=== PATIENT | female | born 1960 | race Caucasian/White ===

== ENCOUNTER 2018-05-01 19:07 | Outpatient (REF) | payer MEDICARE, SELFPAY ==
[2018-05-01 20:10] LABS: Bilirubin Negative (Negative); Blood Moderate (Negative); Clarity Sl Cloudy; Glucose Negative (Negative); Ketones Negative (Negative); Leukocyte Esterase Moderate (Negative); Nitrite Negative (Negative); Specific Gravity 1.015 (1.005-1.025); Urobilinogen 0.2 EU/dL (Up TO 0.2)
[2018-05-01 20:21] LABS: WBC 20-50 HPF (0-5)
[2018-05-01 20:22] LABS: Bacteria Moderate HPF (Negative); C & S Indicated? No/Sq. Contamination; Casts Negative LPF (Negative); Crystals Negative HPF (Negative); Epithelial Cells Many HPF (Negative); Mucus Negative (Negative); Other Cells Negative (Negative)
== END 2018-05-01 19:27 ==
LOC: NCHCN 19:07
PROVIDERS: PCP Family Medicine; Visit Provider Nurse Practitioner Family
DX: R35.8 Other polyuria (principal)
CPT/HCPCS: 87077; 81003; 81015; 87086; 87186

== ENCOUNTER → 2018-05-28 12:49 | Outpatient (BNVA) | payer MEDICARE, SELFPAY | PROVIDERS: PCP Family Medicine; Referring Provider Family Medicine; Visit Provider Nurse Practitioner Gerontology | DX: R31.9 Hematuria, unspecified (principal); R10.9 Unspecified abdominal pain; N39.0 Urinary tract infection, site not specified; E11.9 Type 2 diabetes mellitus without complications; Z79.84 Long term (current) use of oral hypoglycemic drugs; I11.0 Hypertensive heart disease with heart failure; I50.9 Heart failure, unspecified | CPT/HCPCS: 81003; 99204; 99215 ==

== ENCOUNTER 2018-05-28 14:57 | Outpatient (REF) | payer MEDICARE, SELFPAY ==
[2018-05-28 16:43] LABS: Bacteria Few HPF (Negative); C & S Indicated? C&S Done As Ordered; Casts Negative LPF (Negative); Crystals Negative HPF (Negative); Epithelial Cells Few HPF (Negative); Mucus Negative (Negative); Other Cells Negative (Negative); WBC >50 HPF (0-5)
== END 2018-05-28 15:17 ==
LOC: LBN 14:57
PROVIDERS: PCP Family Medicine; Visit Provider Nurse Practitioner Gerontology
DX: R31.9 Hematuria, unspecified (principal)
CPT/HCPCS: 87077; 81015; 87086; 87186

== ENCOUNTER 2018-06-07 00:37 | Outpatient (CLI) | payer MEDICARE, SELFPAY ==
[2018-06-07 11:28] LABS: CREATININE 0.72 mg/dL (0.55-1.02)
[2018-06-07] MEDS: Omnipaque 350 MG/ML 100 ML BTL IJ (12:23)
--- NOTE | 2018-06-07 12:30 | DI.CT_ITS ---
SYMPTOMS/DIAGNOSIS: RIGHT FLANK PAIN, HEMATURIA, R10.9, R31.9 CT UROGRAM: Noncontrast CT scan of the abdomen and pelvis was performed according to the renal colic protocol. In the right kidney, there is a 1.5 cm stone within the renal pelvis. There is a 0.5 cm stone in the region of the right ureteropelvic junction. There is a 4 mm stone at the right ureterovesical junction. Moderate hydronephrosis is seen. There is a 0.2 cm nonobstructing stone in the lower pole of the right kidney. In the left kidney, there is a large stone seen in the inferior pole measuring 2.6 cm in diameter. It is nonobstructing. No ureteral stones are seen on the left. No hydronephrosis is present. The urinary bladder is intact. The patient is status post cholecystectomy. No biliary ductal dilatation is present. The patient has a moderate-sized midline anterior abdominal wall hernia containing a nonobstructed loop of small bowel. Postcontrast images of the abdomen and pelvis were performed. There does appear to be diffuse decreased attenuation of the liver suggesting hepatic steatosis. There is patient motion artifact, which does limit evaluation. The portal and superior mesenteric veins are patent. No biliary ductal dilatation is seen. The pancreas, spleen and adrenal glands are unremarkable. The kidneys show normal and symmetric enhancement. No solid renal mass is present. The abdominal aorta shows atherosclerosis but no aneurysmal dilatation is seen. There is diverticulosis of the colon, but no acute diverticulitis is present. No evidence of bowel obstruction or inflammation is seen. No significant abdominal or pelvic adenopathy, ascites or pneumoperitoneum is present. Degenerative changes are seen in the spine. Seven-minute delayed images were obtained. The left ureter is opacified. No filling defects are seen. There is delayed excretion within the right renal collecting system. Contrast is only seen in the renal pelvis. No ureteral contrast is present. The urinary bladder appears grossly unremarkable. IMPRESSION: 1. Multiple right ureteral calculi. The largest is seen proximally, but stones are present at the right ureteropelvic junction and right ureterovesical junction. 2. Bilateral nephrolithiasis. 3. Nonacute findings seen in the abdomen and pelvis as described above.
== END 2018-06-07 00:57 ==
PROVIDERS: PCP Family Medicine; Visit Provider Nurse Practitioner Gerontology
DX: R10.31 Right lower quadrant pain (principal); R31.9 Hematuria, unspecified; N20.0 Calculus of kidney; N20.2 Calculus of kidney with calculus of ureter
CPT/HCPCS: 74178; 82565; J3490

== ENCOUNTER → 2018-06-17 14:20 | Outpatient (BNVA) | payer MEDICARE, SELFPAY | PROVIDERS: PCP Family Medicine; Visit Provider Nurse Practitioner Gerontology | DX: N20.0 Calculus of kidney (principal); E11.9 Type 2 diabetes mellitus without complications; Z79.84 Long term (current) use of oral hypoglycemic drugs; I10 Essential (primary) hypertension | CPT/HCPCS: 99213 ==

== ENCOUNTER 2018-07-09 09:02 | Emergency (ER) | payer MEDICARE, SELFPAY ==
[2018-07-09] VITALS (7 sets, daily range): BP systolic 114–149; BP diastolic 55–83; PULSE 87–99; RESP 18–20; TEMP 35.4–36.6; O2SAT 95–96
--- NOTE | 2018-07-09 09:15 | W.ED.GENAD ---
Discharge Plan Disposition Patient Disposition: [facility] Condition: Serious Discharge Details Chief Complaint: Abd Prob Clinical Impression: Hydronephrosis, Leukocytosis (leucocytosis), Incarcerated incisional hernia, Recurrent UTI, Nephrolithiasis Primary Care Provider: Albert Zuleta ED Provider: Liv Piper Home Meds and New Rx's Prescriptions: No Action spironolactone 25 mg tablet 25 mg PO DAILY RF: 0 furosemide 20 mg tablet 20 mg PO DAILY RF: 0 nitroglycerin 0.4 MG tablet, sublingual 0.4 mg Sublingual PRN RF: 0 multivitamin 1 EACH capsule 1 ea PO DAILY RF: 0 Trulicity 1.5 MG/0.5 ML pen injector 1.5 mg SQ weekly RF: 0 estradiol [Estrace] 42.5 GM cream 1 gm VG 3 times a week. Qty: 1 RF: 6 cephalexin [Keflex] 500 mg capsule 500 mg PO TID Qty: 21 RF: 0 ProAir HFA 8.5 GM HFA aerosol inhaler 2 puff Inhalation QID PRN (Reason: Shortness Of Breath) RF: 0 glipizide-metformin 1 EACH tablet 2 ea PO BID RF: 0 Spiriva with HandiHaler 30 CAP capsule, w/inhalation device 1 cap Inhalation DAILY RF: 0 Januvia 25 MG tablet 100 mg PO QAM RF: 0 hydrocodone-acetaminophen 1 TAB tablet 2 tab PO PRN PRN (Reason: Pain) RF: 0 aspirin, buffered 325 MG tablet 1 tab PO DAILY RF: 0 magnesium 30 mg Tablet 30 mg PO DAILY RF: 0 loratadine 10 mg Tablet 10 mg PO DAILY RF: 0 Discharge Data Discharge Date/Time-TO BE ENTERED AT DEPARTURE: 07/09/18 15:45 Medical Decision Making <Leon Schafer MD - Last Filed: 07/09/18 09:24> ECG Data Attestation: I personally reviewed and interpreted this ECG (s) as follows: Prior ECG tracings: available for review Interpretation: sinus rhythm, ate of 100, left bundle branch block, pr 168, no acute ischemic st t wave changes <JETT De La Cruz - Last Filed: 07/10/18 08:04> Patient is a 57-year-old female presenting today with chief complaint of nausea and vomiting times 3 hours. Reports I cannot keep anything down and is very thirsty. Patient has history of osteoarthritis, morbid obesity, recurrent urinary tract infections, diabetes, hypertension, kidney stones, sarcoidosis. Patient is status post cholecystectomy, complete hysterectomy, hernia repair. She reports she has waxing and waning abdominal pain and points to the inferior most aspect of her pannus this area of maximal discomfort. Is not currently endorsing any discomfort. States that she has not been able to pass flatus or have a bowel movement since the onset of her nausea and vomiting. Patient denies any bloating. Denies hematemesis. Is currently endorsing nausea. Patient denies any chest pain. She does endorse chronic exertional dyspnea which she reports is unchanged associates with history of CHF. Denies any On exam, patient is noted to be morbidly obese. Secondary to this, abdominal exam is slightly limited. No discomfort was elicited with palpation. Hypoactive bowel sounds. Lungs are clear. Patient is known to be slightly tachycardic at a rate of 98. She is afebrile. EKG reviewed by Dr. Schafer, LBBB unchanged from previous. He does not note any acute ischemic changes. Please see his note. Given the patient's surgical history and report of progression of symptoms, I am most concerned for possible obstruction. She has history of nephrolithiasis, no CVA tenderness, no urinary symptoms per patient report. We will treat the patient's nausea, obtain laboratory evaluation as well as CT scan. Discussed plan with the patient who is in agreement. Patient is not currently endorsing any pain. Laboratory evaluation significant for leukocytosis 16.71 with left shift. Contact by lab, patients troponin is elevated at 0.81. Discussed these findings with the patient. She state she may have had some twinges in her chest over the past few days but that htis is very mild and is not currently active. Will add chest to imaging. Glucose elevated 348, she states she is noncompliant and has not had her medications in the past 2 days. Magnesium slightly low at 1.7. AST elevated at 48, this appears typical for the patient. UA concerning for UTI, nitrite positive, moderate blood, large amount of leukocyte esterase. She has had multiple UTI but feels asymptomatic at this point. Will give 1g Rocephin. Has history of Amoxicillin allergy but has tolerated cephalosporins well historically. Holding ASA until read back from CT. Spoke with radiologist who reviewed the CT of the chest, abdomen and pelvis. Significant for a large incarcerated small bowel hernia. No significant for a large stone that is impacted in the right ureteropelvic junction with severe hydronephrosis. Given the patients comorbidities, BMI, elevated troponin and findings on the CT, I am concerned that this patient will require transfer to higher level of care. Discussed case with Dr. Schafer who agrees that patient is most appropriate for transfer to another facility. Official CT read: The aorta is normal. The cephalic vessels are intact. There is no evidence of pulmonary embolic disease. There is no pulmonary infiltrate or mass, or pleural effusion. The heart is not enlarged. There is no pericardial effusion. Below the diaphragm the aorta is intact. There are atherosclerotic changes and there are small calcifications that take off of the celiac and superior mesenteric arteries without evidence of significant stenosis. There is no demonstrated aortic or other aneurysm. The iliac vessels appear intact. The renal arteries are intact. The liver is intact. The patient is status post cholecystectomy. There is no focal hepatic abnormality. There is no evidence of biliary dilatation or cholelithiasis. The pancreas is unremarkable. The spleen is unremarkable. There are severe hydronephrotic changes involving the right kidney and there is a large proximal right ureteral stone measuring up to 16.4 mm in maximal diameter. The ureter distal to this calculus which is impacted at the ureteropelvic junction is unremarkable. There is nonobstructing left nephrolithiasis. Also there is a large lower pole renal calculus measuring up to 3 x 1.3 cm. There is no evidence of left hydronephrosis. The left ureter is unremarkable. As noted above the iliac arteries exhibit atherosclerotic change. There is no aneurysm with both the external and internal iliacs intact. There are multiple small calcified pelvic phleboliths. The bladder is decompressed. A large periumbilical hernia contains small bowel loops and fat and there is at least partial incarceration of the herniated small bowel segment. The distal small bowel is mildly dilated when compared with the small bowel loops proximal to the hernia. There is no evidence of an acute appendix. No gross abnormality involving the colon is apparent and there is no evidence of a localized colonic mass. There is no evidence of significant diverticulitis. There is no evidence of free air or free fluid in the abdomen or pelvis. In the pelvis and upper thighs the femoral arteries are unremarkable. No significant bony abnormality is seen save for severe DJD involving both hips. Findings consistent with an incarcerated umbilical hernia and bilateral nephrolithiasis, and severe right hydronephrosis secondary to a sizable stone impacted at the ureteropelvic junction as described above. The stone measures to as much as 1.6 , and no obstruction. No significant vascular abnormality involving the chest, abdomen or pelvis. Note is made of severe bilateral hip DJD SUMMARY: Bilateral nephrolithiasis. Severe right hydronephrosis secondary to an impacted stone at the ureteropelvic junction as described above. There is a large incarcerated mid to distal small bowel hernia Atherosclerotic changes in the vasculature in the thorax and abdomen and pelvis. No vascular acute abnormality is suggested. Consulted with [facility] regarding transfer for incarcerated hernia, infected ureteral stone with severe hydronephrosis and elevated troponin. They do not have any beds at this time Consulted with [facility] who advised that they will contact me regarding bed placement possibilities Images pushed to [facility] Spoke with Dr. Gilliam at [facility] who will review images and discuss with the required consults on this patient. Lactate 2.5. Patient continues to receive IV hydration. On second liter of fluid. Consulted with Dr. Rosas with general surgery to discuss hernia. As the patient was endorsning discomfort, and there is confusion as to what service the patient should go to at [facility], I requested the he evaluate the patient. Patient is concerned that her primary source of discmfort is linked to the hernia. He was able to reduce the hernia, his primary concern at this time is urosepsis secondary to the stone and infection noted. Does not feel that surgery for hernia is required at this time, he does not feel that the patient is having discomfort associated with the hernia nor is this the source of her N/V. Was called back by [facility] who advises that there is now a step down bed available. Consulted with Dr. Argueta, hospitalist, reviewed history, labs and CT findings. CT images and EKGs were pushed to [facility]. We are going to consult with urology. Dr. Sears, with urology, was also added to the line. She reviewed images and she advised that patient will need nephrostomy tube vs. stent placement as soon as possible. Dr. Argueta has accepted patient in transfer. Troponin remains 0.8. Discussed this plan with the patient. Discussed her labs, CT findings and recommendations of urology. Patient has received 3L of fluid and 1G of Rocephin. She is in agreement with this plan of transfer for urology intervention. She will be transferred via EMS for continued cardiac monitoring, hydration. I am concerned, given her laboraotry and imaging findings, that while she is well compensated at this time, she may become unstable secondary to her infection. HPI <Leon Schafer MD - Last Filed: 07/09/18 09:24> General Date/Time Provider Initiated Documentation: 07/09/18 09:06. Related Data Home Medications Medication Instructions Recorded Confirmed multivitamin 1 ea PO DAILY 11/07/12 07/09/18 nitroglycerin 0.4 mg SUBLINGUAL PRN 11/07/12 07/09/18 Januvia 100 mg PO QAM 02/03/13 07/09/18 ProAir HFA 2 puff INHALATION QID PRN 02/03/13 07/09/18 Spiriva with HandiHaler 1 cap INHALATION DAILY 02/03/13 07/09/18 glipizide-metformin 2 ea PO BID 02/03/13 07/09/18 hydrocodone-acetaminophen 2 tab PO PRN PRN 02/13/13 07/09/18 aspirin, buffered 1 tab PO DAILY 10/02/16 07/09/18 dulaglutide [Trulicity] 1.5 mg SQ weekly 12/10/17 07/09/18 estradiol [Estrace] 1 gm VG 3 times a week. #1 tube 12/25/17 07/09/18 furosemide 20 mg tablet 20 mg PO DAILY 05/28/18 07/09/18 spironolactone 25 mg tablet 25 mg PO DAILY 05/28/18 07/09/18 cephalexin 500 mg capsule 500 mg PO TID #21 cap 05/30/18 07/09/18 loratadine 10 mg PO DAILY 07/09/18 07/09/18 magnesium 30 mg PO DAILY 07/09/18 07/09/18 Previous Rx's Medication Instructions Recorded estradiol [Estrace] 1 gm VG 3 times a week. #1 tube 12/25/17 cephalexin 500 mg capsule 500 mg PO TID #21 cap 05/30/18 Allergies Allergy/AdvReac Type Severity Reaction Status Date / Time nitrofurantoin Allergy Severe Psychosis Unverified 07/09/18 10:00 [From Macrobid] sulfamethoxazole Allergy Intermediate Hives Unverified 07/09/18 10:00 [From Bactrim] trimethoprim [From Bactrim] Allergy Intermediate Hives Unverified 07/09/18 10:00 amoxicillin trihydrate Allergy body rash Unverified 07/09/18 10:00 [From Augmentin] potassium clavulanate Allergy body rash Unverified 07/09/18 10:00 [From Augmentin] clomipramine [From Anafranil] AdvReac Intermediate Other (See Unverified 07/09/18 10:00 Comment) ketamine AdvReac Intermediate hallucinati Unverified 07/09/18 10:00 ons <JETT De La Cruz - Last Filed: 07/10/18 08:04> General Mode of arrival: wheelchair. Limitations to Documentation: no limitations. Information obtained by: patient. History of Present Illness 57 year old F presents to the emergency department with the chief complaint of nausea, vomiting and constipation, described as moderate, Quality is described as aching, and is localized to the abdomen. Patient reports no radiation. Patient started experiencing this hour(s) (30) and it has been intermittent (pain waxes and wanes). No relieving factors improve symptom(s), No exacerbating factors reported . Patient notes loss of appetite, nausea/vomiting and shortness of breath (endorses chronic, unchanged SOB. Associates with CHF); denies chest pain, cough, fever/chills, headaches and rash. Patient did receive the following treatments prior to arrival, none <JETT De La Cruz - Last Filed: 07/10/18 08:04> Constitutional Reports as per HPI, Denies chills, Denies fatigue, Denies fever(s) and Denies headache(s) ENT Denies headache(s) Cardiovascular Reports as per HPI, Denies chest pain, Reports dyspnea and Reports dyspnea on exertion (chronic and unchanged) Respiratory Reports dyspnea and Reports dyspnea on exertion (chronic and unchanged) Gastrointestinal Reports as per HPI Genitourinary Reports system reviewed and no additional complaints, except as docu (denies any change in urinary habits) and Denies dysuria Musculoskeletal Reports as per HPI and Denies back pain Integumentary/Breasts Reports as per HPI and Denies rash Neurologic Denies headache(s) Endocrine Denies fatigue PFS <Leon Schafer MD - Last Filed: 07/09/18 09:24> Medical History Hydronephrosis (Acute) Morbid obesity (Acute) Leukocytosis (leucocytosis) (Acute) Renal insufficiency (Acute) Lactic acid acidosis (Acute) Hyperglycemia (Acute) Incarcerated incisional hernia (Acute) Anxiety Congenital ureterovesical obstruction Diabetes mellitus Essential hypertension Kidney stone Morbid obesity Sarcoidosis Surgical History Abdominal hysterectomy Cholecystectomy Fracture, Open Treatment Lithotripsy Oophrectomy, Both Open Carpal Tunnel release Tonsillectomy and adenoidectomy Family History Mother Diabetes Heart disease Father Personal history of malignant neoplasm Sister Personal history of malignant neoplasm Social History Smoking/Tobacco Use Status: Current-Occasional <JETT De La Cruz - Last Filed: 07/10/18 08:04> Const General: cooperative, comfortable, no acute distress, well developed and well groomed Nutritional Appearance: well nourished and obese morbidly obese Orientation: alert and awake HENMT Head: normal to inspection Mouth: moist mucous membranes Resp Effort & Inspection: normal respiratory effort, able to speak in complete sentences and no respiratory distress Auscultation: clear to auscultation bilaterally, no rales, no rhonchi and no wheezes Cardio Rate: regular rate Rhythm: regular rhythm Heart Sounds: S1 normal and S2 normal GI Inspection: no edema, non-distended, large pannus, obesity, no visible herniation and no visible pulsation Palpation: soft, no hepatosplenomegaly, not firm, no guarding, no hernias, no pulsatile masses, not rigid and nontender Percussion: normal to percussion Auscultation: hypoactive bowel sounds Back/Spine/Pelvis Back: no CVA tenderness Skin General skin exam: no rashes or lesions noted Trauma: no lacerations or abrasions Neuro General: alert and awake Cognition: normal cognition Speech: speech normal Gait: normal gait Psych Appearance: grossly normal and well kempt Mental Status: mental status grossly normal Speech and Movement: speech and movement normal
--- NOTE | 2018-07-09 09:24 | ED.GENADUL_ITS ---
Discharge Plan Disposition Patient Disposition: [facility] Condition: Serious Discharge Details Chief Complaint: Abd Prob Clinical Impression: Hydronephrosis, Leukocytosis (leucocytosis), Incarcerated incisional hernia, Recurrent UTI, Nephrolithiasis Primary Care Provider: Albert Zuleta ED Provider: Liv Piper Home Meds and New Rx's Prescriptions: No Action spironolactone 25 mg tablet 25 mg PO DAILY RF: 0 furosemide 20 mg tablet 20 mg PO DAILY RF: 0 nitroglycerin 0.4 MG tablet, sublingual 0.4 mg Sublingual PRN RF: 0 multivitamin 1 EACH capsule 1 ea PO DAILY RF: 0 Trulicity 1.5 MG/0.5 ML pen injector 1.5 mg SQ weekly RF: 0 estradiol [Estrace] 42.5 GM cream 1 gm VG 3 times a week. Qty: 1 RF: 6 cephalexin [Keflex] 500 mg capsule 500 mg PO TID Qty: 21 RF: 0 ProAir HFA 8.5 GM HFA aerosol inhaler 2 puff Inhalation QID PRN (Reason: Shortness Of Breath) RF: 0 glipizide-metformin 1 EACH tablet 2 ea PO BID RF: 0 Spiriva with HandiHaler 30 CAP capsule, w/inhalation device 1 cap Inhalation DAILY RF: 0 Januvia 25 MG tablet 100 mg PO QAM RF: 0 hydrocodone-acetaminophen 1 TAB tablet 2 tab PO PRN PRN (Reason: Pain) RF: 0 aspirin, buffered 325 MG tablet 1 tab PO DAILY RF: 0 magnesium 30 mg Tablet 30 mg PO DAILY RF: 0 loratadine 10 mg Tablet 10 mg PO DAILY RF: 0 Discharge Data Discharge Date/Time-TO BE ENTERED AT DEPARTURE: 07/09/18 15:45 Medical Decision Making <Leon Schafer MD - Last Filed: 07/09/18 09:24> ECG Data Attestation: I personally reviewed and interpreted this ECG (s) as follows: Prior ECG tracings: available for review Interpretation: sinus rhythm, ate of 100, left bundle branch block, pr 168, no acute ischemic st t wave changes <JETT De La Cruz - Last Filed: 07/10/18 08:04> Patient is a 57-year-old female presenting today with chief complaint of nausea and vomiting times 3 hours. Reports I cannot keep anything down and is very thirsty. Patient has history of osteoarthritis, morbid obesity, recurrent urinary tract infections, diabetes, hypertension, kidney stones, sarcoidosis. Patient is status post cholecystectomy, complete hysterectomy, hernia repair. She reports she has waxing and waning abdominal pain and points to the inferior most aspect of her pannus this area of maximal discomfort. Is not currently endorsing any discomfort. States that she has not been able to pass flatus or have a bowel movement since the onset of her nausea and vomiting. Patient denies any bloating. Denies hematemesis. Is currently endorsing nausea. Patient denies any chest pain. She does endorse chronic exertional dyspnea which she reports is unchanged associates with history of CHF. Denies any On exam, patient is noted to be morbidly obese. Secondary to this, abdominal exam is slightly limited. No discomfort was elicited with palpation. Hypoactive bowel sounds. Lungs are clear. Patient is known to be slightly tachycardic at a rate of 98. She is afebrile. EKG reviewed by Dr. Schafer, LBBB unchanged from previous. He does not note any acute ischemic changes. Please see his note. Given the patient's surgical history and report of progression of symptoms, I am most concerned for possible obstruction. She has history of nephrolithiasis, no CVA tenderness, no urinary symptoms per patient report. We will treat the patient's nausea, obtain laboratory evaluation as well as CT scan. Discussed plan with the patient who is in agreement. Patient is not currently endorsing any pain. Laboratory evaluation significant for leukocytosis 16.71 with left shift. Contact by lab, patients troponin is elevated at 0.81. Discussed these findings with the patient. She state she may have had some twinges in her chest over the past few days but that htis is very mild and is not currently active. Will add chest to imaging. Glucose elevated 348, she states she is noncompliant and has not had her medications in the past 2 days. Magnesium slightly low at 1.7. AST elevated at 48, this appears typical for the patient. UA concerning for UTI, nitrite positive, moderate blood, large amount of leukocyte esterase. She has had multiple UTI but feels asymptomatic at this point. Will give 1g Rocephin. Has history of Amoxicillin allergy but has tolerated cephalosporins well historically. Holding ASA until read back from CT. Spoke with radiologist who reviewed the CT of the chest, abdomen and pelvis. Significant for a large incarcerated small bowel hernia. No significant for a large stone that is impacted in the right ureteropelvic junction with severe hydronephrosis. Given the patients comorbidities, BMI, elevated troponin and findings on the CT, I am concerned that this patient will require transfer to higher level of care. Discussed case with Dr. Schafer who agrees that patient is most appropriate for transfer to another facility. Official CT read: The aorta is normal. The cephalic vessels are intact. There is no evidence of pulmonary embolic disease. There is no pulmonary infiltrate or mass, or pleural effusion. The heart is not enlarged. There is no pericardial effusion. Below the diaphragm the aorta is intact. There are atherosclerotic changes and there are small calcifications that take off of the celiac and superior mesenteric arteries without evidence of significant stenosis. There is no demonstrated aortic or other aneurysm. The iliac vessels appear intact. The renal arteries are intact. The liver is intact. The patient is status post cholecystectomy. There is no focal hepatic abnormality. There is no evidence of biliary dilatation or cholelithiasis. The pancreas is unremarkable. The spleen is unremarkable. There are severe hydronephrotic changes involving the right kidney and there is a large proximal right ureteral stone measuring up to 16.4 mm in maximal diameter. The ureter distal to this calculus which is impacted at the ureteropelvic junction is unremarkable. There is nonobstructing left nephrolithiasis. Also there is a large lower pole renal calculus measuring up to 3 x 1.3 cm. There is no evidence of left hydronephrosis. The left ureter is unremarkable. As noted above the iliac arteries exhibit atherosclerotic change. There is no aneurysm with both the external and internal iliacs intact. There are multiple small calcified pelvic phleboliths. The bladder is decompressed. A large periumbilical hernia contains small bowel loops and fat and there is at least partial incarceration of the herniated small bowel segment. The distal small bowel is mildly dilated when compared with the small bowel loops proximal to the hernia. There is no evidence of an acute appendix. No gross abnormality involving the colon is apparent and there is no evidence of a localized colonic mass. There is no evidence of significant diverticulitis. There is no evidence of free air or free fluid in the abdomen or pelvis. In the pelvis and upper thighs the femoral arteries are unremarkable. No significant bony abnormality is seen save for severe DJD involving both hips. Findings consistent with an incarcerated umbilical hernia and bilateral nephrolithiasis, and severe right hydronephrosis secondary to a sizable stone impacted at the ureteropelvic junction as described above. The stone measures to as much as 1.6 , and no obstruction. No significant vascular abnormality involving the chest, abdomen or pelvis. Note is made of severe bilateral hip DJD SUMMARY: Bilateral nephrolithiasis. Severe right hydronephrosis secondary to an impacted stone at the ureteropelvic junction as described above. There is a large incarcerated mid to distal small bowel hernia Atherosclerotic changes in the vasculature in the thorax and abdomen and pelvis. No vascular acute abnormality is suggested. Consulted with [facility] regarding transfer for incarcerated hernia, infected ureteral stone with severe hydronephrosis and elevated troponin. They do not have any beds at this time Consulted with [facility] who advised that they will contact me regarding bed placement possibilities Images pushed to [facility] Spoke with Dr. Gilliam at [facility] who will review images and discuss with the required consults on this patient. Lactate 2.5. Patient continues to receive IV hydration. On second liter of fluid. Consulted with Dr. Rosas with general surgery to discuss hernia. As the patient was endorsning discomfort, and there is confusion as to what service the patient should go to at [facility], I requested the he evaluate the patient. Patient is concerned that her primary source of discmfort is linked to the hernia. He was able to reduce the hernia, his primary concern at this time is urosepsis secondary to the stone and infection noted. Does not feel that surgery for hernia is required at this time, he does not feel that the patient is having discomfort associated with the hernia nor is this the source of her N/V. Was called back by [facility] who advises that there is now a step down bed available. Consulted with Dr. Argueta, hospitalist, reviewed history, labs and CT findings. CT images and EKGs were pushed to [facility]. We are going to consult with urology. Dr. Sears, with urology, was also added to the line. She reviewed images and she advised that patient will need nephrostomy tube vs. stent placement as soon as possible. Dr. Argueta has accepted patient in transfer. Troponin remains 0.8. Discussed this plan with the patient. Discussed her labs, CT findings and recommendations of urology. Patient has received 3L of fluid and 1G of Rocephin. She is in agreement with this plan of transfer for urology intervention. She will be transferred via EMS for continued cardiac monitoring, hydration. I am concerned, given her laboraotry and imaging findings, that while she is well compensated at this time, she may become unstable secondary to her infection. HPI <Leon Schafer MD - Last Filed: 07/09/18 09:24> General Date/Time Provider Initiated Documentation: 07/09/18 09:06 . Related Data Home Medications Medication Instructions Recorded Confirmed multivitamin 1 ea PO DAILY 11/07/12 07/09/18 nitroglycerin 0.4 mg SUBLINGUAL PRN 11/07/12 07/09/18 Januvia 100 mg PO QAM 02/03/13 07/09/18 ProAir HFA 2 puff INHALATION QID PRN 02/03/13 07/09/18 Spiriva with HandiHaler 1 cap INHALATION DAILY 02/03/13 07/09/18 glipizide-metformin 2 ea PO BID 02/03/13 07/09/18 hydrocodone-acetaminophen 2 tab PO PRN PRN 02/13/13 07/09/18 aspirin, buffered 1 tab PO DAILY 10/02/16 07/09/18 dulaglutide [Trulicity] 1.5 mg SQ weekly 12/10/17 07/09/18 estradiol [Estrace] 1 gm VG 3 times a week. #1 tube 12/25/17 07/09/18 furosemide 20 mg tablet 20 mg PO DAILY 05/28/18 07/09/18 spironolactone 25 mg tablet 25 mg PO DAILY 05/28/18 07/09/18 cephalexin 500 mg capsule 500 mg PO TID #21 cap 05/30/18 07/09/18 loratadine 10 mg PO DAILY 07/09/18 07/09/18 magnesium 30 mg PO DAILY 07/09/18 07/09/18 Previous Rx's Medication Instructions Recorded estradiol [Estrace] 1 gm VG 3 times a week. #1 tube 12/25/17 cephalexin 500 mg capsule 500 mg PO TID #21 cap 05/30/18 Allergies Allergy/AdvReac Type Severity Reaction Status Date / Time nitrofurantoin Allergy Severe Psychosis Unverified 07/09/18 10:00 [From Macrobid] sulfamethoxazole Allergy Intermediate Hives Unverified 07/09/18 10:00 [From Bactrim] trimethoprim [From Bactrim] Allergy Intermediate Hives Unverified 07/09/18 10:00 amoxicillin trihydrate Allergy body rash Unverified 07/09/18 10:00 [From Augmentin] potassium clavulanate Allergy body rash Unverified 07/09/18 10:00 [From Augmentin] clomipramine [From Anafranil] AdvReac Intermediate Other (See Unverified 07/09/18 10:00 Comment) ketamine AdvReac Intermediate hallucinati Unverified 07/09/18 10:00 ons <JETT De La Cruz - Last Filed: 07/10/18 08:04> General Mode of arrival: wheelchair . Limitations to Documentation: no limitations . Information obtained by: patient . History of Present Illness 57 year old F presents to the emergency department with the chief complaint of nausea, vomiting and constipation, described as moderate, Quality is described as aching, and is localized to the abdomen. Patient reports no radiation. Patient started experiencing this hour(s) (30) and it has been intermittent (pain waxes and wanes). No relieving factors improve symptom(s), No exacerbating factors reported . Patient notes loss of appetite, nausea/vomiting and shortness of breath (endorses chronic, unchanged SOB. Associates with CHF); denies chest pain, cough, fever/chills, headaches and rash. Patient did receive the following treatments prior to arrival, none <JETT De La Cruz - Last Filed: 07/10/18 08:04> Constitutional Reports as per HPI, Denies chills, Denies fatigue, Denies fever(s) and Denies headache(s) ENT Denies headache(s) Cardiovascular Reports as per HPI, Denies chest pain, Reports dyspnea and Reports dyspnea on exertion (chronic and unchanged) Respiratory Reports dyspnea and Reports dyspnea on exertion (chronic and unchanged) Gastrointestinal Reports as per HPI Genitourinary Reports system reviewed and no additional complaints, except as docu (denies any change in urinary habits) and Denies dysuria Musculoskeletal Reports as per HPI and Denies back pain Integumentary/Breasts Reports as per HPI and Denies rash Neurologic Denies headache(s) Endocrine Denies fatigue PFS <Leon Schafer MD - Last Filed: 07/09/18 09:24> Medical History Hydronephrosis (Acute) Morbid obesity (Acute) Leukocytosis (leucocytosis) (Acute) Renal insufficiency (Acute) Lactic acid acidosis (Acute) Hyperglycemia (Acute) Incarcerated incisional hernia (Acute) Anxiety Congenital ureterovesical obstruction Diabetes mellitus Essential hypertension Kidney stone Morbid obesity Sarcoidosis Surgical History Abdominal hysterectomy Cholecystectomy Fracture, Open Treatment Lithotripsy Oophrectomy, Both Open Carpal Tunnel release Tonsillectomy and adenoidectomy Family History Mother Diabetes Heart disease Father Personal history of malignant neoplasm Sister Personal history of malignant neoplasm Social History Smoking/Tobacco Use Status: Current-Occasional <JETT De La Cruz - Last Filed: 07/10/18 08:04> Const General: cooperative, comfortable, no acute distress, well developed and well groomed Nutritional Appearance: well nourished and obese morbidly obese Orientation: alert and awake HENMT Head: normal to inspection Mouth: moist mucous membranes Resp Effort & Inspection: normal respiratory effort, able to speak in complete sentences and no respiratory distress Auscultation: clear to auscultation bilaterally, no rales, no rhonchi and no wheezes Cardio Rate: regular rate Rhythm: regular rhythm Heart Sounds: S1 normal and S2 normal GI Inspection: no edema, non-distended, large pannus, obesity, no visible herniation and no visible pulsation Palpation: soft, no hepatosplenomegaly, not firm, no guarding, no hernias, no pulsatile masses, not rigid and nontender Percussion: normal to percussion Auscultation: hypoactive bowel sounds Back/Spine/Pelvis Back: no CVA tenderness Skin General skin exam: no rashes or lesions noted Trauma: no lacerations or abrasions Neuro General: alert and awake Cognition: normal cognition Speech: speech normal Gait: normal gait Psych Appearance: grossly normal and well kempt Mental Status: mental status grossly normal Speech and Movement: speech and movement normal
[2018-07-09] MEDS: Ondansetron 4 MG/2 ML VIAL IVP (09:37)
[2018-07-09] MEDS: Normal Saline 1,000 ML 1000 ML IV (09:38)
[2018-07-09] MEDS: Normal Saline Flush 10 ML SYR IVP (09:38)
[2018-07-09 09:53] LABS: Abs Immature Grans 0.03 k/cumm (0.0-0.09); Absolute Basophil Count 0.02 k/cumm (0.0-0.2); Absolute Eosinophil Count 0.05 k/cumm (0.0-0.7); Absolute Lymphocyte Count 2.57 k/cumm (1.2-3.4); Absolute Neutrophil Count 12.83 k/cumm (1.2-6.7); Basophils % 0.1; Eosinophils % 0.3; HCT 43.5 % (36.0-46.0); HGB 14.7 g/dL (12.0-15.5); Immature Grans % 0.2; Lymphocytes % 15.4; Mean Corp. HGB Concentration 33.8 g/dL (32.0-36.0); Mean Corpuscular Hemoglobin 31.7 pg (27.0-33.0); Mean Corpuscular Volume 93.8 fL (80-95); Mean Platelet Volume 10.2 fL (8.0-11.0); Monocytes % 7.2; Neutrophils % 76.8; Platelet Count 301 x1000/uL (130-400); RBC 4.64 m/cumm (4.00-5.20); RBC Distribution Width 12.6 % (11.7-14.6); White Blood Cell Count 16.71 k/cumm (4.4-10.8)
[2018-07-09 10:10] LABS: ALT 44 U/L (12-78); AST 48 U/L (15-37); Alkaline Phosphatase 85 U/L (46-116); Anion Gap 15.4 mmol/L (3-11); BUN 17 mg/dL (7-18); Bilirubin, Total 1.8 mg/dL (0.2-1.0); CO2 24.6 mmol/L (21.0-32.0); CREATININE 1.04 mg/dL (0.55-1.02); Calcium 11.2 mg/dL (8.5-10.1); Chloride 96 mmol/L (98-107); Estimated GFR 54.43 (mL/min/1.73m2); Glucose 349 mg/dL (70-100); Potassium 4.3 mmol/L (3.5-5.1); Sodium 136 mmol/L (136-145); Total Protein 8.3 g/dL (6.4-8.2)
--- NOTE | 2018-07-09 10:13 | NUR.NOTE ---
Nursing Note: Assisted pt to bedside commode, urine specimen obtained and sent to lab. Urine noted to be concentrated/ tea colored. reports that nausea is improved post zofran. IVF infusing, awaiting CT scan
[2018-07-09 10:15] LABS: Lipase 255 U/L (73-393); Magnesium 1.7 mg/dL (1.8-2.4)
[2018-07-09 10:22] LABS: Troponin I 0.81 ng/mL (0.00-0.06)
[2018-07-09 10:25] LABS: Bilirubin Small (Negative); Blood Moderate (Negative); Clarity Turbid; Glucose Negative (Negative); Ketones 15 mg/dL (Negative); Leukocyte Esterase Large (Negative); Nitrite Positive (Negative); Specific Gravity >= 1.030 (1.005-1.025)
--- NOTE | 2018-07-09 10:25 | DI.CT_ITS ---
SYMPTOM/DIAGNOSIS: ABD PAIN, ELEVATED TROPONIN CTA CHEST, ABDOMEN AND PELVIS: The study was conducted according to the usual protocol with intravenous administration of [address] CHEST: 07/09/18 The aorta is normal. The cephalic vessels are intact. There is no evidence of pulmonary embolic disease. There is no pulmonary infiltrate or mass, or pleural effusion. The heart is not enlarged. There is no pericardial effusion. Below the diaphragm the aorta is intact. There are atherosclerotic changes and there are small calcifications that take off of the celiac and superior mesenteric arteries without evidence of significant stenosis. There is no demonstrated aortic or other aneurysm. The iliac vessels appear intact. The renal arteries are intact. The liver is intact. The patient is status post cholecystectomy. There is no focal hepatic abnormality. There is no evidence of biliary dilatation or cholelithiasis. The pancreas is unremarkable. The spleen is unremarkable. There are severe hydronephrotic changes involving the right kidney and there is a large proximal right ureteral stone measuring up to 16.4 mm in maximal diameter. The ureter distal to this calculus which is impacted at the ureteropelvic junction is unremarkable. There is nonobstructing left nephrolithiasis. Also there is a large lower pole renal calculus measuring up to 3 x 1.3 cm. There is no evidence of left hydronephrosis. The left ureter is unremarkable. As noted above the iliac arteries exhibit atherosclerotic change. There is no aneurysm with both the external and internal iliacs intact. There are multiple small calcified pelvic phleboliths. The bladder is decompressed. A large periumbilical hernia contains small bowel loops and fat and there is at least partial incarceration of the herniated small bowel segment. The distal small bowel is mildly dilated when compared with the small bowel loops proximal to the hernia. There is no evidence of an acute appendix. No gross abnormality involving the colon is apparent and there is no evidence of a localized colonic mass. There is no evidence of significant diverticulitis. There is no evidence of free air or free fluid in the abdomen or pelvis. In the pelvis and upper thighs the femoral arteries are unremarkable. No significant bony abnormality is seen save for severe DJD involving both hips. Findings consistent with an incarcerated umbilical hernia and bilateral nephrolithiasis, and severe right hydronephrosis secondary to a sizable stone impacted at the ureteropelvic junction as described above. The stone measures to as much as 1.6 , and no obstruction. No significant vascular abnormality involving the chest, abdomen or pelvis. Note is made of severe bilateral hip DJD SUMMARY: Bilateral nephrolithiasis. Severe right hydronephrosis secondary to an impacted stone at the ureteropelvic junction as described above. There is a large incarcerated mid to distal small bowel hernia Atherosclerotic changes in the vasculature in the thorax and abdomen and pelvis. No vascular acute abnormality is suggested. These results were called to the Emergency Room, to Liv Escamilla.
[2018-07-09 10:44] LABS: Mucus Heavy (Negative)
--- NOTE | 2018-07-09 10:44 | NUR.NOTE ---
Nursing Note:Pt off unit to CT at this time
[2018-07-09 10:45] LABS: C & S Indicated? Yes; WBC >50 HPF (0-5)
[2018-07-09] MEDS: Omnipaque 350 MG/ML 100 ML BTL IJ (11:02)
[2018-07-09] MEDS: Normal Saline 1,000 ML 200 ML IV ×2 (11:23→14:05)
--- NOTE | 2018-07-09 12:23 | NUR.NOTE ---
Nursing Note: Surgery in room consulting with patient at this time. ABX infusing.
[2018-07-09 12:28] LABS: Lactate-non-spesis 2.5 mmol/L (0.6-1.4)
--- NOTE | 2018-07-09 12:46 | SCONE_ITS ---
Date of service: 07/09/18 Time of Service: 12:43 Assessment and Plan (1) Incarcerated incisional hernia: Start date: 07/09/18 Start time: 13:07 Current visit: Yes Status: Acute reduced bedside some mild pain, currently not an issue but would cont serial abd exams, did review the ct and it is a wide neck hernia with patient never having it incarcerated in the past (2) Hyperglycemia: Start date: 07/09/18 Start time: 13:08 Current visit: Yes Status: Acute insulin, serial fingersticks with sliding scale (3) Lactic acid acidosis: Start date: 07/09/18 Start time: 13:09 Current visit: Yes Status: Acute IVF, repeat labs (4) Renal insufficiency: Start date: 07/09/18 Start time: 13:09 Current visit: Yes Status: Acute ivf cont hydration (5) Leukocytosis (leucocytosis): Start date: 07/09/18 Start time: 13:09 Current visit: Yes Status: Acute blood and urine cultures concern for urosepsis (6) Morbid obesity: Start date: 07/09/18 Start time: 13:10 Current visit: Yes Status: Acute need diet for her ideal body weight, ?bariatric surgery (7) Hydronephrosis: Start date: 07/09/18 Start time: 13:11 Current visit: Yes Status: Acute urology consult, stone extraction, perc nephrosotomy tubes (8) Diabetes: Start date: 07/09/18 Start time: 13:12 Current visit: Yes Status: Chronic poorly controlled, neuropathy, polyurea, endocrine concern about pt compl iance History of Present Illness Chief Complaint: abd pain Narrative: 57yo pleasant morbidly obese female with 2 day h/o fever and chills with some lower left quadrant pain. CT scan suggests incarcerated incisional hernia with some distended small bowel and a significant stone with ureter obstruction and hydronephrosis, concern for urosepsis with her symptoms. Consults Consult date: 07/09/18 Requesting physician: Mildred Horvath Review of Systems Review of Systems All systems reviewed & are unremarkable except as noted in HPI and below Constitutional Reports as per HPI, Reports chills, Reports fatigue, Reports fever(s), Reports lethargy, Reports night sweats and Reports weakness Gastrointestinal Reports as per HPI, Reports abdominal pain and Reports diarrhea Genitourinary Reports system reviewed and no additional complaints, except as docu and Reports urinary urgency Comments: foul smelling urine as per patient Neurologic Reports weakness Endocrine Reports fatigue, Reports polydipsia and Reports polyuria PFSH Medical History Anxiety Congenital ureterovesical obstruction Diabetes mellitus Essential hypertension Kidney stone Morbid obesity Sarcoidosis Surgical History Abdominal hysterectomy Cholecystectomy Fracture, Open Treatment Lithotripsy Oophrectomy, Both Open Carpal Tunnel release Tonsillectomy and adenoidectomy Family History Mother Diabetes Heart disease Father Personal history of malignant neoplasm Sister Personal history of malignant neoplasm Social History Smoking/Tobacco Use Status: Current-Occasional Exam Narrative Exam Narrative: morbidly obese diabetic Const General: cooperative Nutritional Appearance: obese morbidly obese and overweight Orientation: alert, awake and oriented x3 GI Inspection: large pannus and obesity Palpation: soft and hernia Percussion: normal to percussion Auscultation: normal bowel sounds Abdomen image: 1. surgical incision 2. hernia reduced Results Last Vital Signs Temp 36.6 C 07/09/18 11:59 Pulse 92 H 07/09/18 11:59 Resp 20 07/09/18 11:59 BP 141/83 H 07/09/18 11:59 Pulse Ox 95 07/09/18 11:59 Labs : 07/09/18 09:30 07/09/18 09:30 Laboratory Results - last 24 hr 07/09/18 07/09/18 07/09/18 09:30 09:30 09:30 WBC 16.71 H RBC 4.64 Hgb 14.7 Hct 43.5 MCV 93.8 MCH 31.7 MCHC 33.8 RDW 12.6 Plt Count 301 MPV 10.2 Immature Gran % 0.2 Neutrophils % 76.8 Lymphocytes % 15.4 Monocytes % 7.2 Eosinophils % 0.3 Basophils % 0.1 Absolute Neutrophils 12.83 H Absolute Lymphocytes 2.57 Absolute Monocytes 1.20 H Absolute Eosinophils 0.05 Absolute Basophils 0.02 Sodium 136 Potassium 4.3 Chloride 96 L Carbon Dioxide 24.6 Anion Gap 15.4 H BUN 17 Creatinine 1.04 H Estimated GFR/1.73 m2 54.43 Glucose 349 H Lactate Calcium 11.2 H Magnesium 1.7 L Total Bilirubin 1.8 H AST 48 H ALT 44 Alkaline Phosphatase 85 Troponin I 0.81 H Total Protein 8.3 H Albumin 4.0 Lipase 255 Urine Color Urine Clarity Urine pH Ur Specific [place] Urine Protein Urine Ketones Urine Blood Urine Nitrite Urine Bilirubin Urine Urobilinogen Ur Leukocyte Esterase Urine RBC Urine WBC Ur Epithelial Cells Urine Crystals Urine Bacteria Urine Mucus Ur Culture Indicated? Urine Glucose 07/09/18 07/09/18 10:10 12:24 WBC RBC Hgb Hct MCV MCH MCHC RDW Plt Count MPV Immature Gran % Neutrophils % Lymphocytes % Monocytes % Eosinophils % Basophils % Absolute Neutrophils Absolute Lymphocytes Absolute Monocytes Absolute Eosinophils Absolute Basophils Sodium Potassium Chloride Carbon Dioxide Anion Gap BUN Creatinine Estimated GFR/1.73 m2 Glucose Lactate 2.5 H Calcium Magnesium Total Bilirubin AST ALT Alkaline Phosphatase Troponin I Total Protein Albumin Lipase Urine Color Yellow Urine Clarity Turbid Urine pH 7.0 Ur Specific [place] >= 1.030 H Urine Protein >=300 H Urine Ketones 15 H Urine Blood Moderate H Urine Nitrite Positive H Urine Bilirubin Small H Urine Urobilinogen 1.0 H Ur Leukocyte Esterase Large H Urine RBC Not Applicable Urine WBC >50 Ur Epithelial Cells Not Applicable Urine Crystals Not Applicable Urine Bacteria Not Applicable Urine Mucus Heavy Ur Culture Indicated? Yes Urine Glucose Negative
--- NOTE | 2018-07-09 13:28 | NUR.NOTE ---
Nursing Note: Sitting on edge of bed, on computer emailing family. Pt voided approx 200cc concentrated urine. no acute distress. will continue to monitor.
[2018-07-09] MEDS: MORPHine 10 MG/ML VIAL 2 MG IVP (14:51)
--- NOTE | 2018-07-11 08:20 | NUR.NOTE ---
Nursing Note: Faxed to [facility] the urine culture result. . Iman Dunham.
== END 2018-07-09 15:45 | disposition short-term general hospital (02) ==
PROVIDERS: Emergency Provider Physician Assistant; PCP Family Medicine
DX: K43.0 Incisional hernia with obstruction, without gangrene (principal); N13.6 Pyonephrosis; D72.829 Elevated white blood cell count, unspecified
CPT/HCPCS: 36415; 74177; 80053; 83690; 87077; 93005; 96361; 96365; 96366; 96375; 99253; 99284; 99285; 81003; 81015; 83605; 83735; 84484; 85025; 87086; 87186; 93010; J0696; J2270; J2405; J3490

== ENCOUNTER 2018-07-22 09:21 | Emergency (ER) | payer MEDICARE, SELFPAY ==
[2018-07-22 09:47] VITALS: BP 156/73; PULSE 79; RESP 16; TEMP 37; O2SAT 96
--- NOTE | 2018-07-22 09:59 | DI.CT_ITS ---
SYMPTOMS/DIAGNOSIS: NAUSEA, MIDLINE PAIN, HERNIA, ? INCARCERATION CT OF THE ABDOMEN AND PELVIS: Comparison is made with [id number]. A right ureteral stent is seen. A calcification remains present in the right renal pelvis. There is also a large stone at the lower pole of the left kidney, in a lower pole calyx. Again noted is a hernia located just superior to the umbilicus in the lower abdomen as seen on the previous exam. There is again noted to be a loop of bowel entering the hernia with dilatation of the proximal loop. The findings have a similar appearance to the previous exam. Oral contrast was seen in more proximal loops of small bowel which do not appear dilated. The liver again shows fatty infiltration. The patient is status post cholecystectomy. There is no biliary dilatation. The pancreas and adrenals are unremarkable. The patient is status post hysterectomy. The bladder is mildly distended and unremarkable. IMPRESSION: 1. Lower abdominal wall incisional hernia containing a loop of bowel with a transition point suggesting obstruction. The findings appear similar to the previous exam.
[2018-07-22] MEDS: MORPHine 10 MG/ML VIAL 4 MG IVP ×2 (10:41→12:46)
[2018-07-22] MEDS: Ondansetron 4 MG/2 ML VIAL IVP (10:41)
[2018-07-22] MEDS: Normal Saline 1,000 ML 1000 ML IV (10:41)
[2018-07-22 10:52] LABS: Abs Immature Grans 0.03 k/cumm (0.0-0.09); Absolute Eosinophil Count 0.29 k/cumm (0.0-0.7); Absolute Lymphocyte Count 2.21 k/cumm (1.2-3.4); Absolute Monocyte Count 0.71 k/cumm (0.11-0.7); Absolute Neutrophil Count 9.36 k/cumm (1.2-6.7); Basophils % 0.2; Eosinophils % 2.3; HCT 39.9 % (36.0-46.0); HGB 13.1 g/dL (12.0-15.5); Immature Grans % 0.2; Lymphocytes % 17.5; Mean Corp. HGB Concentration 32.8 g/dL (32.0-36.0); Mean Corpuscular Hemoglobin 31.9 pg (27.0-33.0); Mean Corpuscular Volume 97.1 fL (80-95); Mean Platelet Volume 10.2 fL (8.0-11.0); Monocytes % 5.6; Neutrophils % 74.2; Platelet Count 220 x1000/uL (130-400); RBC 4.11 m/cumm (4.00-5.20); RBC Distribution Width 12.8 % (11.7-14.6); White Blood Cell Count 12.62 k/cumm (4.4-10.8)
[2018-07-22 10:57] LABS: Absolute Basophil Count 0.03 k/cumm (0.0-0.2)
[2018-07-22 11:11] LABS: ALT 34 U/L (12-78); AST 37 U/L (15-37); Albumin 3.7 g/dL (3.4-5.0); Alkaline Phosphatase 91 U/L (46-116); Anion Gap 12.8 mmol/L (3-11); BUN 9 mg/dL (7-18); Bilirubin, Total 0.8 mg/dL (0.2-1.0); CO2 25.2 mmol/L (21.0-32.0); CREATININE 0.81 mg/dL (0.55-1.02); Chloride 99 mmol/L (98-107); Glucose 222 mg/dL (70-100); Lipase 148 U/L (73-393); Potassium 4.4 mmol/L (3.5-5.1); Sodium 137 mmol/L (136-145)
[2018-07-22] MEDS: Omnipaque 350 MG/ML 100 ML BTL IJ (12:08)
[2018-07-22 12:31] VITALS: BP 111/50; PULSE 93; RESP 16; O2SAT 97
--- NOTE | 2018-07-22 12:41 | ED.GENADUL_ITS ---
Discharge Plan Disposition Patient Disposition: [facility] Condition: Stable Discharge Details Chief Complaint: Abd Prob Clinical Impression: Incarcerated incisional hernia Primary Care Provider: Albert Zuleta ED Provider: Iban Sams Home Meds and New Rx's Prescriptions: No Action spironolactone 25 mg tablet 25 mg PO DAILY RF: 0 nitroglycerin 0.4 MG tablet, sublingual 0.4 mg Sublingual PRN RF: 0 multivitamin 1 EACH capsule 1 ea PO DAILY RF: 0 Trulicity 1.5 MG/0.5 ML pen injector 1.5 mg SQ weekly RF: 0 ProAir HFA 8.5 GM HFA aerosol inhaler 2 puff Inhalation QID PRN (Reason: Shortness Of Breath) RF: 0 glipizide-metformin 1 EACH tablet 500 mg PO BID RF: 0 Spiriva with HandiHaler 30 CAP capsule, w/inhalation device 1 cap Inhalation DAILY RF: 0 Januvia 25 MG tablet 100 mg PO QAM RF: 0 hydrocodone-acetaminophen 1 TAB tablet 2 tab PO PRN PRN (Reason: Pain) RF: 0 loratadine 10 mg Tablet 10 mg PO DAILY RF: 0 gabapentin 600 mg Tablet 1,800 mg PO TID RF: 0 carvedilol 3.125 mg Tablet 3.125 mg PO BID RF: 0 aspirin [Aspirin Childrens] 81 mg Tablet,Chewable 81 mg PO DAILY RF: 0 lisinopril 5 mg Tablet 5 mg PO DAILY RF: 0 magnesium 200 mg Tablet 400 mg PO BID RF: 0 cefpodoxime 200 mg Tablet 200 mg PO BID RF: 0 Trulicity 1.5 mg/0.5 mL Pen Injector 1.75 mg subcut DIRECTED RF: 0 Discharge Data Discharge Date/Time-TO BE ENTERED AT DEPARTURE: 07/22/18 15:34 Medical Decision Making This is a 57-year-old morbidly obese female who presents with a history of a castillo lcal hernia, who presents today with worsening supraumbilical tenderness for the last 24 hours. Physical exam demonstrates a large firm mass. On notable and prolonged palpation over. 3-5 minutes there appears to be some movement but I am unable to reduce it. She is notably painful during this episode. Out of concern for obstruction and incarceration versus strangulation we did get a CT scan. Per the radiologist there appears to be evidence of an obstructed hernia in that area. I did contact Dr. Flores the surgeon on-call and discussed the case with him. He did review the images personally and agrees that there may be a small obstruction there, but does not feel that she would be appropriate for surgery here secondary to the patient's size. He recommended contacting [facility]. We did contact [facility] and I discussed the case with Dr. Card. She agrees with the need for transfer and management. Patient will be transferred to the ER per Dr. Nielsen request. I have extensively reviewed the treatment plan with the patient. I have addressed all patient concerns at this time. I have also discussed the plan with the admitting physician and they agree with the current assessment and plan and have agreed to assume responsibility for the patient. All parties demonstrate verbal understanding and agreement with our assessment and plan at this time. CT OF THE ABDOMEN AND PELVIS: Comparison is made with [id number]. A right ureteral stent is seen. A calcification remains present in the right renal pelvis. There is also a large stone at the lower pole of the left kidney, in a lower pole calyx. Again noted is a hernia located just superior to the umbilicus in the lower abdomen as seen on the previous exam. There is again noted to be a loop of bowel entering the hernia with dilatation of the proximal loop. The findings have a similar appearance to the previous exam. Oral contrast was seen in more proximal loops of small bowel which do not appear dilated. The liver again shows fatty infiltration. The patient is status post cholecystectomy. There is no biliary dilatation. The pancreas and adrenals are unremarkable. The patient is status post hysterectomy. The bladder is mildly distended and unremarkable. IMPRESSION: 1. Lower abdominal wall incisional hernia containing a loop of bowel with a transition point suggesting obstruction. The findings appear similar to the previous exam. HPI General Date/Time Provider Initiated Documentation: 07/22/18 09:59 . HPI Narrative: This is a pleasant 57-year-old female with a past medical history of diabetes, stent in the right kidney, who was recently seen and evaluated within the past month for incarcerated hernia which was able to be reduced manually, as well as a troponin bump at that time and a kidney issue. She was eventually sent to [facility] where her kidney issue and troponins normalized. She was discharged home. The patient notes that yesterday she developed some nausea and some mild left lower quadrant/periumbilical pain which she describes as sharp and constant. She describes it as a 3 out of 10. She has associated nausea but no vomiting. Last bowel movement was yesterday and it was soft and liquidy. Symptoms are made worse with palpation. Improved by nothing. She denies any hematochezia, melena, acholic stool. She denies any hematemesis. She states that this feels worse than the hernia that she had before and she was concerned for this if she is come in for further evaluation. Past surgical history is positive for hysterectomy, right kidney stone. The patient denies any other modifying factors. She has eaten, last time was last night. She denies any IV or illicit drug use. She denies any pertinent family history. Related Data Home Medications Medication Instructions Recorded Confirmed multivitamin 1 ea PO DAILY 11/07/12 07/22/18 nitroglycerin 0.4 mg SUBLINGUAL PRN 11/07/12 07/22/18 Januvia 100 mg PO QAM 02/03/13 07/22/18 ProAir HFA 2 puff INHALATION QID PRN 02/03/13 07/22/18 Spiriva with HandiHaler 1 cap INHALATION DAILY 02/03/13 07/22/18 glipizide-metformin 500 mg PO BID 02/03/13 07/09/18 hydrocodone-acetaminophen 2 tab PO PRN PRN 02/13/13 07/22/18 dulaglutide [Trulicity] 1.5 mg SQ weekly 12/10/17 07/22/18 spironolactone 25 mg tablet 25 mg PO DAILY 05/28/18 07/22/18 loratadine 10 mg PO DAILY 07/09/18 07/22/18 aspirin [Aspirin Childrens] 81 mg PO DAILY 07/22/18 07/22/18 carvedilol 3.125 mg PO BID 07/22/18 07/22/18 cefpodoxime 200 mg PO BID 07/22/18 07/22/18 dulaglutide [Trulicity] 1.75 mg SUBCUT DIRECTED 07/22/18 07/22/18 gabapentin 1,800 mg PO TID 07/22/18 07/22/18 lisinopril 5 mg PO DAILY 07/22/18 07/22/18 magnesium 400 mg PO BID 07/22/18 07/22/18 Allergies Allergy/AdvReac Type Severity Reaction Status Date / Time nitrofurantoin Allergy Severe Psychosis Unverified 07/09/18 10:00 [From Macrobid] sulfamethoxazole Allergy Intermediate Hives Unverified 07/09/18 10:00 [From Bactrim] trimethoprim [From Bactrim] Allergy Intermediate Hives Unverified 07/09/18 10:00 amoxicillin trihydrate Allergy body rash Unverified 07/09/18 10:00 [From Augmentin] potassium clavulanate Allergy body rash Unverified 07/09/18 10:00 [From Augmentin] clomipramine [From Anafranil] AdvReac Intermediate Other (See Unverified 07/09/18 10:00 Comment) ketamine AdvReac Intermediate hallucinati Unverified 07/09/18 10:00 ons General Stated Complaint: Abd Prob GROVER: 3 Review of Systems Review of Systems All systems reviewed & are unremarkable except as noted in HPI and below PFSH Medical History Hydronephrosis (Acute) Morbid obesity (Acute) Leukocytosis (leucocytosis) (Acute) Renal insufficiency (Acute) Lactic acid acidosis (Acute) Hyperglycemia (Acute) Incarcerated incisional hernia (Acute) Anxiety Congenital ureterovesical obstruction Diabetes mellitus Essential hypertension Kidney stone Morbid obesity Sarcoidosis Surgical History Abdominal hysterectomy Cholecystectomy Fracture, Open Treatment Lithotripsy Oophrectomy, Both Open Carpal Tunnel release Tonsillectomy and adenoidectomy Social History Smoking/Tobacco Use Status: Former Tobacco Use Exam Narrative Exam Narrative: 1.Const: Well-nourished, Well-developed, appearing stated age, morbidly obese 2.Eyes: PERRL, no conjunctival injection, and symmetrical lids. 3.ENT: Atraumatic external nose and ears. Moist MM. Neck: Symmetric, trachea midline, No thyromegaly. 4.CVS: +S1/S2, No murmurs or gallops. Peripheral pulses 2+ and equal in all extremities. Brisk capillary refill in all extremities. 5.RESP: Unlabored respiratory effort. Clear to auscultation bilaterally. No wheezes rales or rhonchi 6.GI: Morbidly obese, notable supraumbilical tenderness with large mass appreciated. Unable to reduce. Tender to palpation. Bowel sounds are present but reduced. 7.MSK: Normocephalic/Atraumatic, Extremities w/o deformity or ttp No cyanosis or clubbing, Normal movement of all extremities 8.Skin: Warm, Dry. No rashes or lesions. 9.Neuro: milk receiver II-XII grossly intact. Sensation grossly intact, no focal neurologic deficits. 10.Psych: (AAO) x3. Appropriate mood and affect Course Vital Signs Temperature 37 C 07/22/18 09:47 Pulse 79 07/22/18 09:47 Respiratory Rate 16 07/22/18 09:47 Blood Pressure 156/73 H 07/22/18 09:47 Pulse Oximetry 96 07/22/18 09:47 Temperature 37 C 07/22/18 09:47 Temperature Source Temporal Artery Scan 07/22/18 09:47 Pulse 93 H 07/22/18 12:31 Respiratory Rate 16 07/22/18 12:31 Respiratory Effort 07/22/18 09:51 Blood Pressure 111/50 L 07/22/18 12:31 Blood Pressure Position Sitting 07/22/18 09:47 Pulse Oximetry 97 07/22/18 12:31 Oxygen Delivery Method Room Air 07/22/18 12:31 Oxygen Flow Rate 0 07/22/18 12:31 Pain Level 3 07/22/18 12:31 Lab/Test Results Lab/Test Results: Laboratory Tests Range/Units 07/22/18 07/22/18 10:40 10:40 WBC (4.4-10.8) k/cumm 12.62 H RBC (4.00-5.20) m/cumm 4.11 Hgb (12.0-15.5) g/dL 13.1 Hct (36.0-46.0) % 39.9 MCV (80-95) fL 97.1 H MCH (27.0-33.0) pg 31.9 MCHC (32.0-36.0) g/dL 32.8 RDW (11.7-14.6) % 12.8 Plt Count (130-400) x1000/uL 220 MPV (8.0-11.0) fL 10.2 Immature Gran % 0.2 Neutrophils % 74.2 Lymphocytes % 17.5 Monocytes % 5.6 Eosinophils % 2.3 Basophils % 0.2 Absolute Neutrophils (1.2-6.7) k/cumm 9.36 H Absolute Lymphocytes (1.2-3.4) k/cumm 2.21 Absolute Monocytes (0.11-0.7) k/cumm 0.71 H Absolute Eosinophils (0.0-0.7) k/cumm 0.29 Absolute Basophils (0.0-0.2) k/cumm 0.03 Sodium (136-145) mmol/L 137 Potassium (3.5-5.1) mmol/L 4.4 Chloride (98-107) mmol/L 99 Carbon Dioxide (21.0-32.0) mmol/L 25.2 Anion Gap (3-11) mmol/L 12.8 H BUN (7-18) mg/dL 9 Creatinine (0.55-1.02) mg/dL 0.81 Estimated GFR/1.73 m2 (mL/min/1.73m2) >= 60.00 Glucose (70-100) mg/dL 222 H Calcium (8.5-10.1) mg/dL 11.0 H Total Bilirubin (0.2-1.0) mg/dL 0.8 AST (15-37) U/L 37 ALT (12-78) U/L 34 Alkaline Phosphatase (46-116) U/L 91 Total Protein (6.4-8.2) g/dL 8.0 Albumin (3.4-5.0) g/dL 3.7 Lipase (73-393) U/L 148
[2018-07-22 13:01] LABS: Bilirubin Negative (Negative); Blood Large (Negative); Clarity Clear; Glucose Negative (Negative); Ketones Negative (Negative); Leukocyte Esterase Small (Negative); Nitrite Negative (Negative); Urobilinogen 0.2 EU/dL (Up TO 0.2); pH 6.5 (5-8)
[2018-07-22 13:27] LABS: Bacteria Few HPF (Negative); C & S Indicated? Yes; Casts Negative LPF (Negative); Crystals Negative HPF (Negative); Epithelial Cells Few HPF (Negative); Mucus Trace (Negative); WBC 20-50 HPF (0-5)
--- NOTE | 2018-07-22 15:05 | NUR.NOTE ---
Report called to BRYAN Sylvester at [facility] [place].
== END 2018-07-22 15:34 | disposition short-term general hospital (02) ==
PROVIDERS: Student in an Organized Health Care Education/Training Program; Emergency Provider Student in an Organized Health Care Education/Training Program; PCP Family Medicine
DX: K43.0 Incisional hernia with obstruction, without gangrene (principal); N20.0 Calculus of kidney; E11.9 Type 2 diabetes mellitus without complications; Z95.818 Presence of other cardiac implants and grafts
CPT/HCPCS: 36415; 80053; 83690; 87077; 96361; 96374; 96375; 96376; 99285; 74177; 81003; 81015; 85025; 87086; 87186; 99284; J2270; J2405; J3490

== ENCOUNTER 2018-07-30 09:37 | Outpatient (REF) | payer MEDICARE, SELFPAY | END 2018-07-30 09:57 | LOC: NCHCN 09:37 | PROVIDERS: PCP Family Medicine; Visit Provider Family Medicine | DX: N39.0 Urinary tract infection, site not specified (principal) | CPT/HCPCS: 87077; 87086; 87186 ==

== ENCOUNTER 2018-08-15 11:01 | Outpatient (CLI) | payer MEDICARE, SELFPAY ==
[2018-08-15 11:40] LABS: Bilirubin Negative (Negative); Blood Large (Negative); Clarity Sl Cloudy; Glucose Negative (Negative); Ketones Negative (Negative); Leukocyte Esterase Moderate (Negative); Nitrite Negative (Negative); Urobilinogen 0.2 EU/dL (Up TO 0.2)
[2018-08-15 12:01] LABS: C & S Indicated? Yes; RBC >50 (0-2); WBC >50 HPF (0-5)
== END 2018-08-15 11:21 ==
PROVIDERS: PCP Family Medicine; Visit Provider Family Medicine
DX: N39.0 Urinary tract infection, site not specified (principal)
CPT/HCPCS: 87077; 81003; 81015; 87086; 87186

== ENCOUNTER 2018-10-14 01:29 | Outpatient (RCR) | payer MEDICARE, SELFPAY ==
[2018-10-07 09:21] LABS: Abs Immature Grans 0.03 k/cumm (0.0-0.09); Absolute Basophil Count 0.02 k/cumm (0.0-0.2); Absolute Eosinophil Count 0.13 k/cumm (0.0-0.7); Absolute Monocyte Count 0.72 k/cumm (0.11-0.7); Basophils % 0.2; Eosinophils % 1.1; HCT 33.6 % (36.0-46.0); HGB 10.9 g/dL (12.0-15.5); Immature Grans % 0.3; Lymphocytes % 29.5; Mean Corp. HGB Concentration 32.4 g/dL (32.0-36.0); Mean Corpuscular Hemoglobin 31.2 pg (27.0-33.0); Mean Corpuscular Volume 96.3 fL (80-95); Mean Platelet Volume 10.1 fL (8.0-11.0); Monocytes % 6.1; Neutrophils % 62.8; Platelet Count 339 x1000/uL (130-400); RBC 3.49 m/cumm (4.00-5.20); RBC Distribution Width 13.3 % (11.7-14.6); White Blood Cell Count 11.85 k/cumm (4.4-10.8)
[2018-10-07 09:32] LABS: Absolute Neutrophil Count 7.44 k/cumm (1.2-6.7)
[2018-10-07 09:35] LABS: ALT 19 U/L (12-78); AST 26 U/L (15-37); Albumin 3.6 g/dL (3.4-5.0); Alkaline Phosphatase 118 U/L (46-116); Anion Gap 9.3 mmol/L (3-11); BUN 21 mg/dL (7-18); Bilirubin, Total 0.5 mg/dL (0.2-1.0); CO2 25.7 mmol/L (21.0-32.0); CREATININE 0.95 mg/dL (0.55-1.02); Chloride 102 mmol/L (98-107); Glucose 146 mg/dL (70-100); Potassium 4.1 mmol/L (3.5-5.1); Sodium 137 mmol/L (136-145); Total Protein 8.4 g/dL (6.4-8.2)
[2018-10-07] MEDS: Normal Saline Flush 10 ML SYR IVP (10:03)
[2018-10-14] MEDS: Bacitracin 1 PACKET (09:00)
[2018-10-14] MEDS: Normal Saline Flush 10 ML SYR IVP (09:06)
[2018-10-14 09:14] LABS: Abs Immature Grans 0.02 k/cumm (0.0-0.09); Absolute Basophil Count 0.02 k/cumm (0.0-0.2); Absolute Eosinophil Count 0.14 k/cumm (0.0-0.7); Absolute Lymphocyte Count 2.49 k/cumm (1.2-3.4); Absolute Monocyte Count 0.56 k/cumm (0.11-0.7); Basophils % 0.3; Eosinophils % 1.8; HCT 34.7 % (36.0-46.0); HGB 11.1 g/dL (12.0-15.5); Immature Grans % 0.3; Lymphocytes % 32.6; Mean Corpuscular Hemoglobin 30.6 pg (27.0-33.0); Mean Corpuscular Volume 95.6 fL (80-95); Mean Platelet Volume 10.7 fL (8.0-11.0); Monocytes % 7.3; Neutrophils % 57.7; Platelet Count 244 x1000/uL (130-400); RBC 3.63 m/cumm (4.00-5.20); RBC Distribution Width 13.4 % (11.7-14.6); White Blood Cell Count 7.63 k/cumm (4.4-10.8)
[2018-10-14 09:23] LABS: ALT 28 U/L (12-78); AST 29 U/L (15-37); Albumin 3.9 g/dL (3.4-5.0); Alkaline Phosphatase 125 U/L (46-116); Anion Gap 12.5 mmol/L (3-11); BUN 22 mg/dL (7-18); Bilirubin, Total 0.6 mg/dL (0.2-1.0); CO2 24.5 mmol/L (21.0-32.0); Chloride 101 mmol/L (98-107); Glucose 185 mg/dL (70-100); Potassium 4.3 mmol/L (3.5-5.1); Sodium 138 mmol/L (136-145); Total Protein 8.4 g/dL (6.4-8.2)
== END 2018-10-20 23:59 | disposition home or self-care (01) ==
LOC: INF 01:29
PROVIDERS: PCP Family Medicine; Visit Provider Urology
DX: R78.81 Bacteremia (principal); Z45.2 Encounter for adjustment and management of vascular access device; Z79.2 Long term (current) use of antibiotics; N39.0 Urinary tract infection, site not specified
CPT/HCPCS: 36592; 80053; 85025

== ENCOUNTER 2018-11-21 00:35 | Outpatient (CLI) | payer MEDICARE, SELFPAY ==
--- NOTE | 2018-11-21 13:03 | DI.MAMMO_ITS ---
SYMPTOMS/DIAGNOSIS: SCREENING, Z12.39 MAMMOGRAMS: Mammograms were interpreted according to the usual protocol including computer analysis with CAD system, tomosynthesis and C view imaging. The breasts are of moderate density with fairly symmetrical distribution of fibroglandular tissue. No dominant mass or clumped microcalcification is identified in either breast. Current examination is compared with the previous examination of May 2013 and there has been no gross interval change in appearance since that time. CONCLUSION: No specific evidence of malignancy at this time. Routine screening examinations are suggested at yearly intervals due to the family history of breast carcinoma. Category 1, breast density category B. MQSA ASSESSMENT OF FINDINGS: Negative. Category 1. Patient will receive a letter notifying them of these results. BI-RADS category B. There are scattered areas of fibroglandular density.
== END 2018-11-21 00:55 ==
PROVIDERS: PCP Family Medicine; Visit Provider Family Medicine
DX: Z12.31 Encounter for screening mammogram for malignant neoplasm of breast (principal); Z80.3 Family history of malignant neoplasm of breast
CPT/HCPCS: 77063; 77067

== ENCOUNTER → 2018-12-19 12:44 | Outpatient (BNVA) | payer MEDICARE, SELFPAY | PROVIDERS: PCP Family Medicine; Referring Provider Family Medicine; Visit Provider Physical Therapy Assistant | DX: Z12.11 Encounter for screening for malignant neoplasm of colon (principal); E66.01 Morbid (severe) obesity due to excess calories; Z80.0 Family history of malignant neoplasm of digestive organs ==

== ENCOUNTER 2018-12-21 05:27 | Emergency (ER) | payer MEDICARE, SELFPAY ==
[2018-12-21 05:32] VITALS: BP 157/78; PULSE 70; RESP 18; TEMP 36.1; O2SAT 94
--- NOTE | 2018-12-21 05:40 | ED.GENADUL_ITS ---
Discharge Plan Disposition Patient Disposition: HOME Condition: Good Discharge Details Chief Complaint: Orthopedic Clinical Impression: Ankle pain, right Primary Care Provider: Albert Zuleta ED Provider: Dmitry Esquivel [place] Meds and New Rx's Prescriptions: Continued spironolactone 25 mg tablet 25 mg PO DAILY RF: 0 atorvastatin 10 mg tablet 10 mg PO DAILY RF: 0 acetaminophen [Tylenol Extra Strength] 500 mg tablet 500 mg PO Q6H PRNRF: 0 amitriptyline 25 mg tablet 25 mg PO DAILY RF: 0 ibuprofen 200 mg tablet 200 mg PO QID PRNRF: 0 acyclovir 5 % cream 1 applic TP ONCE PRNRF: 0 diclofenac sodium [Voltaren] 1 % gel 2 gm TP QID PRNRF: 0 Probiotic 3 billion cell capsule 3,000 mmu cells PO DAILY RF: 0 levalbuterol tartrate 45 mcg/actuation HFA aerosol inhaler 2 inh IH Q6H RF: 0 Incruse Ellipta 62.5 mcg/actuation blister with device 1 inh IH DAILY RF: 0 cannabidiol (CBD) extract 100 mg/mL solution PO PRNRF: 0 nitroglycerin 0.4 MG tablet, sublingual 0.4 mg Sublingual PRN RF: 0 albuterol sulfate [ProAir HFA] 8.5 GM HFA aerosol inhaler 2 puff Inhalation QID PRN (Reason: Shortness Of Breath) RF: 0 glipizide-metformin 1 EACH tablet 500 mg PO BID RF: 0 Spiriva with HandiHaler 30 CAP capsule, w/inhalation device 1 cap Inhalation DAILY RF: 0 hydrocodone-acetaminophen 1 TAB tablet 2 tab PO PRN PRN (Reason: Pain) RF: 0 loratadine 10 mg Tablet 10 mg PO DAILY RF: 0 gabapentin 600 mg Tablet 1,800 mg PO TID RF: 0 carvedilol 3.125 mg Tablet 3.125 mg PO BID RF: 0 aspirin [Aspirin Childrens] 81 mg Tablet,Chewable 81 mg PO DAILY RF: 0 lisinopril 5 mg Tablet 5 mg PO DAILY RF: 0 magnesium 200 mg Tablet 400 mg PO BID RF: 0 Trulicity 1.5 mg/0.5 mL Pen Injector 1.75 mg subcut DIRECTED RF: 0 Discharge Instructions Additional Instructions: X-rays are negative for bony injury. Ankle stirrup for support. Continue ice, elevation, ibuprofen/acetaminophen for pain. Follow-up with primary care next week if not better. Return to ED for increasing pain, swelling, redness, fever. Referrals: Albert Zuleta [Primary Care Provider] - Medical Decision Making Patient without any known trauma. However, has isolated tenderness and swelling over the lateral malleolus only. There is no erythema or warmth. No concern for infection or gout given the isolated pain and tenderness. Will obtain x-ray to rule out fracture. X-ray of the right ankle is negative per my review as well as preliminary radiology read. Will place in an ankle stirrup for support and protection. May be that she had a twisting injury without realizing it. Certainly seems to be more consistent with a sprain and anything else. Continue ice, elevation, ibuprofen or acetaminophen. Follow-up with primary care next week. Return to ED if increasing pain, swelling, redness, fever. HPI General Mode of arrival: ambulatory . Date/Time Provider Initiated Documentation: 12/21/18 05:33 . Limitations to Documentation: no limitations . Information obtained by: patient . HPI Narrative: Patient presents to ED with right ankle pain and swelling that she noticed about 24 hours ago. She does not recall any specific injury. Pain and swelling is over the lateral malleolus. She is able to ambulate on it. She uses a cane because of problems in the left hip. She denies any other injury or problem. She has been using ice. She has been taking Tylenol and ibuprofen. It is not any better so she came in this morning. Related Data Home Medications Medication Instructions Recorded Confirmed nitroglycerin 0.4 mg SUBLINGUAL PRN 11/07/12 12/21/18 Spiriva with HandiHaler 1 cap INHALATION DAILY 02/03/13 12/21/18 albuterol sulfate [ProAir HFA] 2 puff INHALATION QID PRN 02/03/13 07/22/18 glipizide-metformin 500 mg PO BID 02/03/13 12/21/18 hydrocodone-acetaminophen 2 tab PO PRN PRN 02/13/13 12/21/18 spironolactone 25 mg tablet 25 mg PO DAILY 05/28/18 12/21/18 loratadine 10 mg PO DAILY 07/09/18 12/21/18 Trulicity 1.75 mg SUBCUT DIRECTED 07/22/18 12/21/18 aspirin [Aspirin Childrens] 81 mg PO DAILY 07/22/18 12/21/18 carvedilol 3.125 mg PO BID 07/22/18 12/21/18 gabapentin 1,800 mg PO TID 07/22/18 12/21/18 lisinopril 5 mg PO DAILY 07/22/18 12/21/18 magnesium 400 mg PO BID 07/22/18 12/21/18 acetaminophen 500 mg tablet 500 mg PO Q6H PRN 12/19/18 12/21/18 acyclovir 5 % topical cream 1 applic TP ONCE PRN 12/19/18 12/21/18 amitriptyline 25 mg tablet 25 mg PO DAILY 12/19/18 12/21/18 atorvastatin 10 mg tablet 10 mg PO DAILY 12/19/18 12/21/18 cannabidiol (CBD) 100 mg/mL oral PO PRN ml 12/19/18 12/19/18 solution diclofenac 1 % topical gel 2 gm TP QID PRN 12/19/18 12/21/18 ibuprofen 200 mg tablet 200 mg PO QID PRN 12/19/18 12/21/18 lactobacillus combination no.4 3 3,000 mmu cells PO DAILY 12/19/18 12/21/18 billion cell capsule levalbuterol HFA 45 mcg/actuation 2 inh IH Q6H 12/19/18 12/21/18 aerosol inhaler umeclidinium 62.5 mcg/actuation 1 inh IH DAILY 12/19/18 12/21/18 blister powder for inhalation Allergies Allergy/AdvReac Type Severity Reaction Status Date / Time nitrofurantoin Allergy Severe Psychosis Verified 12/19/18 13:00 [From Macrobid] sulfamethoxazole Allergy Intermediate Hives Verified 12/19/18 13:00 [From Bactrim] trimethoprim [From Bactrim] Allergy Intermediate Hives Verified 12/19/18 13:00 erythromycin base Allergy Unknown Verified 12/19/18 13:00 lidocaine Allergy Unknown Verified 12/19/18 13:00 amoxicillin trihydrate Allergy body rash Verified 12/19/18 13:00 [From Augmentin] potassium clavulanate Allergy body rash Verified 12/19/18 13:00 [From Augmentin] clomipramine [From Anafranil] AdvReac Intermediate Other (See Verified 12/19/18 13:00 Comment) ketamine AdvReac Intermediate hallucinati Verified 12/19/18 13:00 ons General Stated Complaint: Orthopedic GROVER: 4 Review of Systems Musculoskeletal Reports arthralgias and Reports joint swelling Integumentary/Breasts Denies erythema [facility] Medical History Diabetes (Chronic) Hydronephrosis (Acute) Morbid obesity (Chronic) Leukocytosis (leucocytosis) (Acute) Renal insufficiency (Chronic) Lactic acid acidosis (Acute) Hyperglycemia (Chronic) Incarcerated incisional hernia (Acute) Primary osteoarthritis of both knees (Chronic 07/26/15) Osteoarthritis of knee (Chronic 07/21/13) Cystocele (Acute 04/13/15) Flank pain (Acute) Recurrent UTI (Chronic) Hematuria (Acute) Congenital ureterovesical obstruction (Acute) Essential hypertension (Acute) Kidney stone (Acute) Anemia (Chronic) Anxiety (Chronic) Cardiomyopathy (Chronic) Congestive heart failure (Chronic) Depression (Chronic) Diabetes mellitus (Chronic) Obsessive compulsive disorder (Chronic) Sleep apnea (Chronic) Urinary incontinence, mixed (Chronic) Vaginal wall prolapse (Chronic) Sarcoidosis Surgical History Abdominal hysterectomy Cholecystectomy Fracture, Open Treatment Lithotripsy Oophrectomy, Both Open Carpal Tunnel release Tonsillectomy and adenoidectomy Social History Smoking/Tobacco Use Status: Former Tobacco Use Drug use: Occasionally Substance use type: marijuana Do you feel safe at home: Yes Do you feel safe in your relationship?: Yes Exam Narrative Exam Narrative: Obese female in no acute distress. Afebrile. Tenderness and swelling anteriorly right lateral malleolus. No erythema or warmth. Okay range of motion of right ankle. Neurovascularly intact distally. No tenderness on palpation proximally. Course Vital Signs Temperature 97.0 F L 12/21/18 05:32 Pulse 70 12/21/18 05:32 Respiratory Rate 18 12/21/18 05:32 Blood Pressure 157/78 H 12/21/18 05:32 Pulse Oximetry 94 L 12/21/18 05:32 Temperature 97.0 F L 12/21/18 05:32 Temperature Source Temporal Artery Scan 12/21/18 05:32 Pulse 70 12/21/18 05:32 Respiratory Rate 18 12/21/18 05:32 Respiratory Effort 12/21/18 05:32 Blood Pressure 157/78 H 12/21/18 05:32 Pulse Oximetry 94 L 12/21/18 05:32 Oxygen Delivery Method Room Air 12/21/18 05:32 Oxygen Flow Rate 0 12/21/18 05:32 Pain Level 8 12/21/18 05:32
--- NOTE | 2018-12-21 05:57 | DI.RAD_ITS ---
SYMPTOM/DIAGNOSIS: PAIN, SWELLING LATERAL MALLEOLUS, ATRAUMATIC RIGHT ANKLE: Three views were obtained. There are prominent osteophytes of sites of attachment of plantar fascia and Achilles tendon on the calcaneus. There is no evidence of acute fracture or dislocation. The ankle mortise appears well maintained.
--- NOTE | 2018-12-21 06:48 | DI.VRAD_ITS ---
EXAM: XR Right Ankle EXAM DATE/TIME: 12/21/2018 5:58 AM CLINICAL HISTORY: 58 years old, female; Pain; Ankle; Right TECHNIQUE: Imaging protocol: XR Right ankle. Views: 3 or more views. COMPARISON: No relevant prior studies available. FINDINGS: Bones/joints: Typical for age. No evidence of acute fracture. Calcaneal spur. Soft tissues: Unremarkable. IMPRESSION: No acute findings. Dictated and Authenticated by: Qamar Maharaj MD. Ordering:AYE Andres MD
== END 2018-12-21 07:15 | disposition home or self-care (01) ==
PROVIDERS: Emergency Provider Emergency Medicine; PCP Family Medicine
DX: M25.571 Pain in right ankle and joints of right foot (principal)
CPT/HCPCS: 29515; 99283; 73610; 99282; L4350

== ENCOUNTER 2019-01-01 11:59 | Outpatient (CLI) | payer MEDICARE, SELFPAY ==
[2019-01-01 12:37] LABS: Abs Immature Grans 0.02 k/cumm (0.0-0.09); Absolute Basophil Count 0.02 k/cumm (0.0-0.2); Absolute Eosinophil Count 0.23 k/cumm (0.0-0.7); Absolute Lymphocyte Count 3.34 k/cumm (1.2-3.4); Absolute Monocyte Count 0.65 k/cumm (0.11-0.7); Absolute Neutrophil Count 4.57 k/cumm (1.2-6.7); Basophils % 0.2; Eosinophils % 2.6; HCT 36.9 % (36.0-46.0); HGB 12.2 g/dL (12.0-15.5); Immature Grans % 0.2; Lymphocytes % 37.8; Mean Corp. HGB Concentration 33.1 g/dL (32.0-36.0); Mean Corpuscular Hemoglobin 30.7 pg (27.0-33.0); Mean Corpuscular Volume 92.9 fL (80-95); Mean Platelet Volume 10.4 fL (8.0-11.0); Monocytes % 7.4; Neutrophils % 51.8; Platelet Count 213 x1000/uL (130-400); RBC 3.97 m/cumm (4.00-5.20); RBC Distribution Width 12.7 % (11.7-14.6); White Blood Cell Count 8.83 k/cumm (4.4-10.8)
[2019-01-01 13:14] LABS: Anion Gap 9.2 mmol/L (3-11); BUN 19 mg/dL (7-18); CO2 27.8 mmol/L (21.0-32.0); CREATININE 0.82 mg/dL (0.55-1.02); Calcium 11.1 mg/dL (8.5-10.1); Chloride 98 mmol/L (98-107); Glucose 269 mg/dL (70-100); PHOSPHORUS 3.7 mg/dL (2.6-4.7); Potassium 4.7 mmol/L (3.5-5.1); Sodium 135 mmol/L (136-145)
[2019-01-02 07:30] LABS: Vitamin D 25 Total 24.6 ng/ml (30-100)
[2019-01-02 13:08] LABS: Parathyroid Hormone,Intact 56 pg/ml (19-88)
[2019-01-06 11:05] LABS: 1,25-Dihydroxyvitamin D 39 pg/mL (18-78)
== END 2019-01-01 12:19 ==
PROVIDERS: PCP Family Medicine; Visit Provider Internal Medicine Nephrology
DX: E83.52 Hypercalcemia (principal); D86.0 Sarcoidosis of lung
CPT/HCPCS: 36415; 80048; 82306; 82652; 83970; 84100; 85025

== ENCOUNTER 2019-01-04 16:52 | Emergency (ER) | payer MEDICARE, SELFPAY ==
[2019-01-04] VITALS (22 sets, daily range): BP systolic 99–164; BP diastolic 58–109; PULSE 126–149; RESP 14–34; TEMP 37.5; O2SAT 79–97
--- NOTE | 2019-01-04 17:16 | DI.CT_ITS ---
SYMPTOMS/DIAGNOSIS: SEVERE LOWER ABDOMINAL PAIN, VOMITING BILE, INCARCERATED HERNIA CT OF THE ABDOMEN AND PELVIS: Comparison is made with June,. Again noted is an anterior abdominal wall hernia containing loops of bowel. There appears to be obstruction at the level of the hernia with dilated proximal loops containing feculent material. No wall thickening or pneumatosis is seen. The lung bases are clear. The liver shows fatty infiltration. The patient is status post hysterectomy. Areas of right renal scarring are noted. There is no hydronephrosis. An air bubble is seen in the bladder, presumably secondary to instrumentation. The aorta shows calcification. It is normal in diameter. The pancreas, adrenals and spleen are unremarkable. IMPRESSION: Partial small bowel obstruction secondary to incarceration within an anterior abdominal wall hernia.
[2019-01-04] MEDS: fentaNYL 100 MCG/2 ML VIAL 50 MCG IVP (17:34)
[2019-01-04] MEDS: Ondansetron 4 MG/2 ML VIAL IVP (17:34)
[2019-01-04] MEDS: Lactated Ringers 1,000 ML 1000 ML IV (17:35)
[2019-01-04] MEDS: Normal Saline Flush 10 ML SYR IVP (17:35)
--- NOTE | 2019-01-04 17:39 | W.ED.GENAD ---
Discharge Plan Disposition Patient Disposition: [facility] Condition: Critical Discharge Details Chief Complaint: Abd Prob Clinical Impression: Small bowel obstruction, Elevated serum lactate dehydrogenase, Metabolic acidosis, Sepsis, Non-ST elevation [place] (NSTEMI) Primary Care Provider: Albert Zuleta ED Provider: Aramis Swift Home Meds and New Rx's Prescriptions: No Action spironolactone 25 mg tablet 25 mg PO DAILY RF: 0 atorvastatin 10 mg tablet 10 mg PO DAILY RF: 0 acetaminophen [Tylenol Extra Strength] 500 mg tablet 500 mg PO Q6H PRNRF: 0 amitriptyline 25 mg tablet 25 mg PO DAILY RF: 0 ibuprofen 200 mg tablet 200 mg PO QID PRNRF: 0 acyclovir 5 % cream 1 applic TP ONCE PRNRF: 0 diclofenac sodium [Voltaren] 1 % gel 2 gm TP QID PRNRF: 0 Probiotic 3 billion cell capsule 3,000 mmu cells PO DAILY RF: 0 levalbuterol tartrate 45 mcg/actuation HFA aerosol inhaler 2 inh IH Q6H RF: 0 Incruse Ellipta 62.5 mcg/actuation blister with device 1 inh IH DAILY RF: 0 cannabidiol (CBD) extract 100 mg/mL solution PO PRNRF: 0 nitroglycerin 0.4 MG tablet, sublingual 0.4 mg Sublingual PRN RF: 0 albuterol sulfate [ProAir HFA] 8.5 GM HFA aerosol inhaler 2 puff Inhalation QID PRN (Reason: Shortness Of Breath) RF: 0 glipizide-metformin 1 EACH tablet 500 mg PO BID RF: 0 Spiriva with HandiHaler 30 CAP capsule, w/inhalation device 1 cap Inhalation DAILY RF: 0 hydrocodone-acetaminophen 1 TAB tablet 2 tab PO PRN PRN (Reason: Pain) RF: 0 loratadine 10 mg Tablet 10 mg PO DAILY RF: 0 gabapentin 600 mg Tablet 1,800 mg PO TID RF: 0 carvedilol 3.125 mg Tablet 3.125 mg PO BID RF: 0 aspirin [Aspirin Childrens] 81 mg Tablet,Chewable 81 mg PO DAILY RF: 0 lisinopril 5 mg Tablet 5 mg PO DAILY RF: 0 magnesium 200 mg Tablet 400 mg PO BID RF: 0 Trulicity 1.5 mg/0.5 mL Pen Injector 1.75 mg subcut DIRECTED RF: 0 Discharge Data Discharge Date/Time-TO BE ENTERED AT DEPARTURE: 01/04/19 19:52 Medical Decision Making <JETT Santiago - Last Filed: 01/04/19 20:53> This is a ill-appearing 58-year-old female with acute onset of abdominal pain and vomiting. With known incisional hernia concern for incarceration/strangulation/ischemic bowel. IV access x2 established. Initial vitals showed a tachycardia in the 130s with a known left bundle on EKG. Hypotensive with a BP of 99/60. Patient fluid responsive after 1 L of LR. Labs demonstrate 25,000 white count with a lactate of 15. Anion gap = 17. Noted metabolic acidosis on venous blood gas. Blood cultures x2 sent. Patient with penicillin allergy therefore ceftriaxone 1 g, Flagyl 500 mg, and vancomycin 2 g IV given. Patient also found to have a troponin of 0.21. EKG shows known left bundle. Patient does not endorse any chest pain. Patient sent to CT scan for abdominal study. Upon arrival patient found to be hypoxic in the mid 80s. Noted increased B-lines on [id number] ultrasound with concern for fluid overload on portable chest x-ray. Patient started on high flow nasal cannula with sats returning to the mid 90s. Respiratory at bedside for BiPAP. Case discussed with Dr. Hung (general surgeon) who does not feel patient is appropriate for this institution. Case discussed with Dr. Henry from general surgery at [facility]. Recommend patient be transferred to the emergency department for emergent evaluation as she may require direct surgical admit. Lab Data Lab results narrative: Diabetes panel 01/04/19 Range/Units 17:38 Sodium 134 L (136-145) mmol/L Potassium 4.5 (3.5-5.1) mmol/L Chloride 97 L (98-107) mmol/L Carbon Dioxide 19.1 L (21.0-32.0) mmol/L BUN 13 (7-18) mg/dL Creatinine 0.91 (0.55-1.02) mg/dL Glucose 389 H (70-100) mg/dL Calcium 11.4 H (8.5-10.1) mg/dL AST 40 H (15-37) U/L ALT 43 (12-78) U/L Alkaline Phosphatase 136 H (46-116) U/L Total Protein 9.1 H (6.4-8.2) g/dL Albumin 4.4 (3.4-5.0) g/dL Calcium panel 01/04/19 Range/Units 17:38 Calcium 11.4 H (8.5-10.1) mg/dL Albumin 4.4 (3.4-5.0) g/dL Pituitary panel 01/04/19 Range/Units 17:38 Sodium 134 L (136-145) mmol/L Potassium 4.5 (3.5-5.1) mmol/L Chloride 97 L (98-107) mmol/L Carbon Dioxide 19.1 L (21.0-32.0) mmol/L BUN 13 (7-18) mg/dL Creatinine 0.91 (0.55-1.02) mg/dL Glucose 389 H (70-100) mg/dL Calcium 11.4 H (8.5-10.1) mg/dL Adrenal panel 01/04/19 Range/Units 17:38 Sodium 134 L (136-145) mmol/L Potassium 4.5 (3.5-5.1) mmol/L Chloride 97 L (98-107) mmol/L Carbon Dioxide 19.1 L (21.0-32.0) mmol/L BUN 13 (7-18) mg/dL Creatinine 0.91 (0.55-1.02) mg/dL Glucose 389 H (70-100) mg/dL Calcium 11.4 H (8.5-10.1) mg/dL Total Bilirubin 1.3 H (0.2-1.0) mg/dL AST 40 H (15-37) U/L ALT 43 (12-78) U/L Alkaline Phosphatase 136 H (46-116) U/L Total Protein 9.1 H (6.4-8.2) g/dL Albumin 4.4 (3.4-5.0) g/dL Most recent lab results Calcium 11.4 mg/dL (8.5-10.1) H 01/04/19 17:38 Magnesium 1.6 mg/dL (1.8-2.4) L 01/04/19 17:38 ECG Data Interpretation: Sinus tach with a rate of 130. Wide QRS consistent with previous left bundle branch block. Negative for scarbossa with appropriate discordance <Steven Aguilar MD - Last Filed: 01/10/19 11:22> ECG was reviewed and interpreted by me: Sinus tachycardia 133 bpm, left bundle branch is present, appropriately disconcordant, patient has prior history of left bundle branch compared to ECG 07/09/2018. I discussed the case with JETT Swift and agree with his treatment plan as outlined. Significant lactic acidosis and leukocytosis noted on lab. Concern for ischemic gut. CT interpreted by radiology as small bowel obstruction. Case crosscut senior environmental consultant general surgeon Dr. Hung who felt that given the patient's comorbidities, patient not a candidate for surgery here at [facility] and recommended transfer to tertiary care facility. Patient is to be transferred to [facility] [place] emergently via [facility] for further work-up and treatment. HPI <JETT Santiago - Last Filed: 01/04/19 20:53> General Date/Time Provider Initiated Documentation: 01/04/19 17:09. HPI Narrative: Patient is a 58-year-old female with significant past medical history for morbid obesity, congestive heart failure with recent echo demonstrating an ejection fraction of 65%, type 2 diabetes [id number], renal insufficiency, incarcerated incisional hernia for which she sees Dr. Ace ibrahim at [facility] [place], hypertension and recurrent UTIs. Patient presents to the emergency department for acute onset of suprapubic/periumbilical abdominal pain followed by vomiting. She has been vomiting yellow bile and has been unable to tolerate POs. she states that her pain is in the general vicinity of her known hernia. She denies any chest pain or shortness of breath. She arrives feeling weak and very diaphoretic. No dysuria, hematuria or low back pain. She was seen by Dr. Ace Henry on 12-23-2018 for follow-up regarding her incisional hernia. Plan at that office visit was to maintain and maximize weight loss and schedule routine screening colonoscopy. She has follow-up with Dr. Henry in approximately 3 months. Related Data Home Medications Medication Instructions Recorded Confirmed nitroglycerin 0.4 mg SUBLINGUAL PRN 11/07/12 01/04/19 Spiriva with HandiHaler 1 cap INHALATION DAILY 02/03/13 01/04/19 albuterol sulfate [ProAir HFA] 2 puff INHALATION QID PRN 02/03/13 01/04/19 glipizide-metformin 500 mg PO BID 02/03/13 01/04/19 hydrocodone-acetaminophen 2 tab PO PRN PRN 02/13/13 01/04/19 spironolactone 25 mg tablet 25 mg PO DAILY 05/28/18 01/04/19 loratadine 10 mg PO DAILY 07/09/18 01/04/19 Trulicity 1.75 mg SUBCUT DIRECTED 07/22/18 01/04/19 aspirin [Aspirin Childrens] 81 mg PO DAILY 07/22/18 01/04/19 carvedilol 3.125 mg PO BID 07/22/18 01/04/19 gabapentin 1,800 mg PO TID 07/22/18 01/04/19 lisinopril 5 mg PO DAILY 07/22/18 01/04/19 magnesium 400 mg PO BID 07/22/18 01/04/19 acetaminophen 500 mg tablet 500 mg PO Q6H PRN 12/19/18 01/04/19 acyclovir 5 % topical cream 1 applic TP ONCE PRN 12/19/18 01/04/19 amitriptyline 25 mg tablet 25 mg PO DAILY 12/19/18 01/04/19 atorvastatin 10 mg tablet 10 mg PO DAILY 12/19/18 01/04/19 cannabidiol (CBD) 100 mg/mL oral PO PRN ml 12/19/18 12/19/18 solution diclofenac 1 % topical gel 2 gm TP QID PRN 12/19/18 01/04/19 ibuprofen 200 mg tablet 200 mg PO QID PRN 12/19/18 01/04/19 lactobacillus combination no.4 3 3,000 mmu cells PO DAILY 12/19/18 01/04/19 billion cell capsule levalbuterol HFA 45 mcg/actuation 2 inh IH Q6H 12/19/18 01/04/19 aerosol inhaler umeclidinium 62.5 mcg/actuation 1 inh IH DAILY 12/19/18 01/04/19 blister powder for inhalation Allergies Allergy/AdvReac Type Severity Reaction Status Date / Time nitrofurantoin Allergy Severe Psychosis Verified 12/19/18 13:00 [From Macrobid] sulfamethoxazole Allergy Intermediate Hives Verified 12/19/18 13:00 [From Bactrim] trimethoprim [From Bactrim] Allergy Intermediate Hives Verified 12/19/18 13:00 erythromycin base Allergy Unknown Verified 12/19/18 13:00 lidocaine Allergy Unknown Verified 12/19/18 13:00 amoxicillin trihydrate Allergy body rash Verified 12/19/18 13:00 [From Augmentin] potassium clavulanate Allergy body rash Verified 12/19/18 13:00 [From Augmentin] clomipramine [From Anafranil] AdvReac Intermediate Other (See Verified 12/19/18 13:00 Comment) ketamine AdvReac Intermediate hallucinati Verified 12/19/18 13:00 ons General Stated Complaint: Abd Prob GROVER: 2 Review of Systems <JETT Santiago - Last Filed: 01/04/19 20:53> Constitutional Denies body ache(s), Denies chills, Reports excessive sweating, Denies fever(s), Denies headache(s), Denies lethargy and Denies night sweats ENT Denies dysphagia, Denies dizziness and Denies headache(s) Cardiovascular Denies chest pain, Reports diaphoresis, Denies lightheadedness, Denies palpitations, Denies dyspnea and Denies orthopnea Respiratory Denies chest congestion, Denies cough, Denies pain on inspiration and Denies dyspnea Gastrointestinal Reports abdominal pain, Denies melena, Reports change in bowel habits, Denies coffee ground emesis, Reports constipation, Denies cramping, Denies dysphagia, Denies diarrhea, Reports nausea and Reports vomiting Genitourinary Denies difficulty voiding, Denies dysuria, Denies flank pain, Denies urinary incontinence, Denies urinary hesitancy and Denies urinary urgency Musculoskeletal Denies back pain, Denies joint swelling and Denies muscle cramps Integumentary/Breasts Denies rash Neurologic Denies dizziness and Denies headache(s) Endocrine Reports excessive sweating and Denies palpitations PFSH <JETT Santiago - Last Filed: 01/04/19 20:53> Medical History Diabetes (Chronic) Hydronephrosis (Acute) Morbid obesity (Chronic) Leukocytosis (leucocytosis) (Acute) Renal insufficiency (Chronic) Lactic acid acidosis (Acute) Hyperglycemia (Chronic) Incarcerated incisional hernia (Acute) Primary osteoarthritis of both knees (Chronic 07/26/15) Osteoarthritis of knee (Chronic 07/21/13) Cystocele (Acute 04/13/15) Flank pain (Acute) Recurrent UTI (Chronic) Hematuria (Acute) Congenital ureterovesical obstruction (Acute) Essential hypertension (Acute) Kidney stone (Acute) Anemia (Chronic) Anxiety (Chronic) Cardiomyopathy (Chronic) Congestive heart failure (Chronic) Depression (Chronic) Diabetes mellitus (Chronic) Obsessive compulsive disorder (Chronic) Sleep apnea (Chronic) Urinary incontinence, mixed (Chronic) Vaginal wall prolapse (Chronic) Sarcoidosis Surgical History Abdominal hysterectomy Cholecystectomy Fracture, Open Treatment Lithotripsy Oophrectomy, Both Open Carpal Tunnel release Tonsillectomy and adenoidectomy Family History Mother Diabetes Heart disease Father Personal history of malignant neoplasm Sister Personal history of malignant neoplasm Social History Smoking/Tobacco Use Status: Former Tobacco Use Alcohol Intake: never Drug use: Occasionally Substance use type: marijuana Do you feel safe at home: Yes Do you feel safe in your relationship?: Yes Exam <JETT Santiago - Last Filed: 01/04/19 20:53> Const General: cooperative, diaphoretic and ill appearing acutely Nutritional Appearance: obese HENKS Head: normal to inspection Eyes General: appearance normal, both eyes and all related structures Chest Chest: normal inspection of the chest Resp Effort & Inspection: normal respiratory effort Auscultation: clear to auscultation bilaterally Cardio Rate: tachycardic Rhythm: regular rhythm Heart Sounds: S1 normal and S2 normal Pulses: normal peripheral pulses GI Inspection: normal to inspection and obesity Palpation: soft and tender periumbilically and suprapubicly; with no rebound tenderness Skin General skin exam: no rashes or lesions noted and pallor Neuro General: alert, awake and oriented x3 Course <JETT Santiago - Last Filed: 01/04/19 20:53> Vital Signs Pulse 130 H 01/04/19 17:04 Blood Pressure 99/58 L 01/04/19 17:04 Pulse Oximetry 92 L 01/04/19 17:04 Temperature Source Tympanic 01/04/19 17:04 Pulse 130 H 01/04/19 17:04 Respiratory Effort 01/04/19 17:13 Blood Pressure 99/58 L 01/04/19 17:04 Blood Pressure Position Supine 01/04/19 17:04 Pulse Oximetry 92 L 01/04/19 17:04 Oxygen Delivery Method Room Air 01/04/19 17:04 Oxygen Flow Rate 0 01/04/19 17:04 Pain Level 6 01/04/19 17:04 Critical Care Time <JETT Santiago - Last Filed: 01/04/19 20:53> Critical Care Time: Yes <Steven Aguilar MD - Last Filed: 01/10/19 11:22> Critical Care Time: Yes Total Critical Care Time: 40
[2019-01-04 17:49] LABS: HCO3 (Venous) 8 mmol/L (22-28); O2 Sat (Venous) 96 % (70-80); TCO2 (Venous) 8 mmol/L (22-29); pCO2 (Venous) 18 mm/Hg (34-47); pH (Venous) 7.29 (7.32-7.43); pO2 (Venous) 75 mm/Hg (28-44)
--- NOTE | 2019-01-04 17:50 | ED.GENADUL_ITS ---
Discharge Plan Disposition Patient Disposition: [facility] Condition: Critical Discharge Details Chief Complaint: Abd Prob Clinical Impression: Small bowel obstruction, Elevated serum lactate dehydrogenase, Metabolic acidosis, Sepsis, Non-ST elevation MS (NSTEMI) Primary Care Provider: Albert Zuleta ED Provider: Aramis Swift Home Meds and New Rx's Prescriptions: No Action spironolactone 25 mg tablet 25 mg PO DAILY RF: 0 atorvastatin 10 mg tablet 10 mg PO DAILY RF: 0 acetaminophen [Tylenol Extra Strength] 500 mg tablet 500 mg PO Q6H PRNRF: 0 amitriptyline 25 mg tablet 25 mg PO DAILY RF: 0 ibuprofen 200 mg tablet 200 mg PO QID PRNRF: 0 acyclovir 5 % cream 1 applic TP ONCE PRNRF: 0 diclofenac sodium [Voltaren] 1 % gel 2 gm TP QID PRNRF: 0 Probiotic 3 billion cell capsule 3,000 mmu cells PO DAILY RF: 0 levalbuterol tartrate 45 mcg/actuation HFA aerosol inhaler 2 inh IH Q6H RF: 0 Incruse Ellipta 62.5 mcg/actuation blister with device 1 inh IH DAILY RF: 0 cannabidiol (CBD) extract 100 mg/mL solution PO PRNRF: 0 nitroglycerin 0.4 MG tablet, sublingual 0.4 mg Sublingual PRN RF: 0 albuterol sulfate [ProAir HFA] 8.5 GM HFA aerosol inhaler 2 puff Inhalation QID PRN (Reason: Shortness Of Breath) RF: 0 glipizide-metformin 1 EACH tablet 500 mg PO BID RF: 0 Spiriva with HandiHaler 30 CAP capsule, w/inhalation device 1 cap Inhalation DAILY RF: 0 hydrocodone-acetaminophen 1 TAB tablet 2 tab PO PRN PRN (Reason: Pain) RF: 0 loratadine 10 mg Tablet 10 mg PO DAILY RF: 0 gabapentin 600 mg Tablet 1,800 mg PO TID RF: 0 carvedilol 3.125 mg Tablet 3.125 mg PO BID RF: 0 aspirin [Aspirin Childrens] 81 mg Tablet,Chewable 81 mg PO DAILY RF: 0 lisinopril 5 mg Tablet 5 mg PO DAILY RF: 0 magnesium 200 mg Tablet 400 mg PO BID RF: 0 Trulicity 1.5 mg/0.5 mL Pen Injector 1.75 mg subcut DIRECTED RF: 0 Discharge Data Discharge Date/Time-TO BE ENTERED AT DEPARTURE: 01/04/19 19:52 Medical Decision Making <JETT Santiago - Last Filed: 01/04/19 20:53> This is a ill-appearing 58-year-old female with acute onset of abdominal pain and vomiting. With known incisional hernia concern for incarceration/strangulation/ischemic bowel. IV access x2 established. Initial vitals showed a tachycardia in the 130s with a known left bundle on EKG. Hypotensive with a BP of 99/60. Patient fluid responsive after 1 L of LR. Labs demonstrate 25,000 white count with a lactate of 15. Anion gap = 17. Noted metabolic acidosis on venous blood gas. Blood cultures x2 sent. Patient with penicillin allergy therefore ceftriaxone 1 g, Flagyl 500 mg, and vancomycin 2 g IV given. Patient also found to have a troponin of 0.21. EKG shows known left bundle. Patient does not endorse any chest pain. Patient sent to CT scan for abdominal study. Upon arrival patient found to be hypoxic in the mid 80s. Noted increased B-lines on [id number] ultrasound with concern for fluid overload on portable chest x-ray. Patient started on high flow nasal cannula with sats returning to the mid 90s. Respiratory at bedside for BiPAP. Case discussed with Dr. Hung (general surgeon) who does not feel patient is appropriate for this institution. Case discussed with Dr. Henry from general surgery at [facility] [place]. Recommend patient be transferred to the emergency department for emergent evaluation as she may require direct surgical admit. Lab Data Lab results narrative: Diabetes panel 01/04/19 Range/Units 17:38 Sodium 134 L (136-145) mmol/L Potassium 4.5 (3.5-5.1) mmol/L Chloride 97 L (98-107) mmol/L Carbon Dioxide 19.1 L (21.0-32.0) mmol/L BUN 13 (7-18) mg/dL Creatinine 0.91 (0.55-1.02) mg/dL Glucose 389 H (70-100) mg/dL Calcium 11.4 H (8.5-10.1) mg/dL AST 40 H (15-37) U/L ALT 43 (12-78) U/L Alkaline Phosphatase 136 H (46-116) U/L Total Protein 9.1 H (6.4-8.2) g/dL Albumin 4.4 (3.4-5.0) g/dL Calcium panel 01/04/19 Range/Units 17:38 Calcium 11.4 H (8.5-10.1) mg/dL Albumin 4.4 (3.4-5.0) g/dL Pituitary panel 01/04/19 Range/Units 17:38 Sodium 134 L (136-145) mmol/L Potassium 4.5 (3.5-5.1) mmol/L Chloride 97 L (98-107) mmol/L Carbon Dioxide 19.1 L (21.0-32.0) mmol/L BUN 13 (7-18) mg/dL Creatinine 0.91 (0.55-1.02) mg/dL Glucose 389 H (70-100) mg/dL Calcium 11.4 H (8.5-10.1) mg/dL Adrenal panel 01/04/19 Range/Units 17:38 Sodium 134 L (136-145) mmol/L Potassium 4.5 (3.5-5.1) mmol/L Chloride 97 L (98-107) mmol/L Carbon Dioxide 19.1 L (21.0-32.0) mmol/L BUN 13 (7-18) mg/dL Creatinine 0.91 (0.55-1.02) mg/dL Glucose 389 H (70-100) mg/dL Calcium 11.4 H (8.5-10.1) mg/dL Total Bilirubin 1.3 H (0.2-1.0) mg/dL AST 40 H (15-37) U/L ALT 43 (12-78) U/L Alkaline Phosphatase 136 H (46-116) U/L Total Protein 9.1 H (6.4-8.2) g/dL Albumin 4.4 (3.4-5.0) g/dL Most recent lab results Calcium 11.4 mg/dL (8.5-10.1) H 01/04/19 17:38 Magnesium 1.6 mg/dL (1.8-2.4) L 01/04/19 17:38 ECG Data Interpretation: Sinus tach with a rate of 130. Wide QRS consistent with previous left bundle branch block. Negative for scarbossa with appropriate discordance <Steven Aguilar MD - Last Filed: 01/10/19 11:22> ECG was reviewed and interpreted by me: Sinus tachycardia 133 bpm, left bundle branch is present, appropriately disconcordant, patient has prior history of left bundle branch compared to ECG 07/09/2018. I discussed the case with JETT Swift and agree with his treatment plan as outlined. Significant lactic acidosis and leukocytosis noted on lab. Concern for ischemic gut. CT interpreted by radiology as small bowel obstruction. Case crosscut regional account manager general surgeon Dr. Hung who felt that given the patient's comorbidities, patient not a candidate for surgery here at [facility] and recommended transfer to tertiary care facility. Patient is to be transferred to [facility] emergently via dart for further work-up and treatment. HPI <JETT Santiago - Last Filed: 01/04/19 20:53> General Date/Time Provider Initiated Documentation: 01/04/19 17:09 . HPI Narrative: Patient is a 58-year-old female with significant past medical history for morbid obesity, congestive heart failure with recent echo demonstrating an ejection fraction of 65%, type 2 diabetes [id number], renal insufficiency, incarcerated incisional hernia for which she sees Dr. Ace ibrahim at [facility], hypertension and recurrent UTIs. Patient presents to the emergency department for acute onset of suprapubic/periumbilical abdominal pain followed by vomiting. She has been vomiting yellow bile and has been unable to tolerate POs. she states that her pain is in the general vicinity of her known hernia. She denies any chest pain or shortness of breath. She arrives feeling weak and very diaphoretic. No dysuria, hematuria or low back pain. She was seen by Dr. Ace Henry on 12-23-2018 for follow-up regarding her incisional hernia. Plan at that office visit was to maintain and maximize weight loss and schedule routine screening colonoscopy. She has follow-up with Dr. Henry in approximately 3 months. Related Data Home Medications Medication Instructions Recorded Confirmed nitroglycerin 0.4 mg SUBLINGUAL PRN 11/07/12 01/04/19 Spiriva with HandiHaler 1 cap INHALATION DAILY 02/03/13 01/04/19 albuterol sulfate [ProAir HFA] 2 puff INHALATION QID PRN 02/03/13 01/04/19 glipizide-metformin 500 mg PO BID 02/03/13 01/04/19 hydrocodone-acetaminophen 2 tab PO PRN PRN 02/13/13 01/04/19 spironolactone 25 mg tablet 25 mg PO DAILY 05/28/18 01/04/19 loratadine 10 mg PO DAILY 07/09/18 01/04/19 Trulicity 1.75 mg SUBCUT DIRECTED 07/22/18 01/04/19 aspirin [Aspirin Childrens] 81 mg PO DAILY 07/22/18 01/04/19 carvedilol 3.125 mg PO BID 07/22/18 01/04/19 gabapentin 1,800 mg PO TID 07/22/18 01/04/19 lisinopril 5 mg PO DAILY 07/22/18 01/04/19 magnesium 400 mg PO BID 07/22/18 01/04/19 acetaminophen 500 mg tablet 500 mg PO Q6H PRN 12/19/18 01/04/19 acyclovir 5 % topical cream 1 applic TP ONCE PRN 12/19/18 01/04/19 amitriptyline 25 mg tablet 25 mg PO DAILY 12/19/18 01/04/19 atorvastatin 10 mg tablet 10 mg PO DAILY 12/19/18 01/04/19 cannabidiol (CBD) 100 mg/mL oral PO PRN ml 12/19/18 12/19/18 solution diclofenac 1 % topical gel 2 gm TP QID PRN 12/19/18 01/04/19 ibuprofen 200 mg tablet 200 mg PO QID PRN 12/19/18 01/04/19 lactobacillus combination no.4 3 3,000 mmu cells PO DAILY 12/19/18 01/04/19 billion cell capsule levalbuterol HFA 45 mcg/actuation 2 inh IH Q6H 12/19/18 01/04/19 aerosol inhaler umeclidinium 62.5 mcg/actuation 1 inh IH DAILY 12/19/18 01/04/19 blister powder for inhalation Allergies Allergy/AdvReac Type Severity Reaction Status Date / Time nitrofurantoin Allergy Severe Psychosis Verified 12/19/18 13:00 [From Macrobid] sulfamethoxazole Allergy Intermediate Hives Verified 12/19/18 13:00 [From Bactrim] trimethoprim [From Bactrim] Allergy Intermediate Hives Verified 12/19/18 13:00 erythromycin base Allergy Unknown Verified 12/19/18 13:00 lidocaine Allergy Unknown Verified 12/19/18 13:00 amoxicillin trihydrate Allergy body rash Verified 12/19/18 13:00 [From Augmentin] potassium clavulanate Allergy body rash Verified 12/19/18 13:00 [From Augmentin] clomipramine [From Anafranil] AdvReac Intermediate Other (See Verified 12/19/18 13:00 Comment) ketamine AdvReac Intermediate hallucinati Verified 12/19/18 13:00 ons General Stated Complaint: Abd Prob GROVER: 2 Review of Systems <JETT Santiago - Last Filed: 01/04/19 20:53> Constitutional Denies body ache(s), Denies chills, Reports excessive sweating, Denies fever(s), Denies headache(s), Denies lethargy and Denies night sweats ENT Denies dysphagia, Denies dizziness and Denies headache(s) Cardiovascular Denies chest pain, Reports diaphoresis, Denies lightheadedness, Denies palpitations, Denies dyspnea and Denies orthopnea Respiratory Denies chest congestion, Denies cough, Denies pain on inspiration and Denies dyspnea Gastrointestinal Reports abdominal pain, Denies melena, Reports change in bowel habits, Denies coffee ground emesis, Reports constipation, Denies cramping, Denies dysphagia, Denies diarrhea, Reports nausea and Reports vomiting Genitourinary Denies difficulty voiding, Denies dysuria, Denies flank pain, Denies urinary incontinence, Denies urinary hesitancy and Denies urinary urgency Musculoskeletal Denies back pain, Denies joint swelling and Denies muscle cramps Integumentary/Breasts Denies rash Neurologic Denies dizziness and Denies headache(s) Endocrine Reports excessive sweating and Denies palpitations PFSH <JETT Santiago - Last Filed: 01/04/19 20:53> Medical History Diabetes (Chronic) Hydronephrosis (Acute) Morbid obesity (Chronic) Leukocytosis (leucocytosis) (Acute) Renal insufficiency (Chronic) Lactic acid acidosis (Acute) Hyperglycemia (Chronic) Incarcerated incisional hernia (Acute) Primary osteoarthritis of both knees (Chronic 07/26/15) Osteoarthritis of knee (Chronic 07/21/13) Cystocele (Acute 04/13/15) Flank pain (Acute) Recurrent UTI (Chronic) Hematuria (Acute) Congenital ureterovesical obstruction (Acute) Essential hypertension (Acute) Kidney stone (Acute) Anemia (Chronic) Anxiety (Chronic) Cardiomyopathy (Chronic) Congestive heart failure (Chronic) Depression (Chronic) Diabetes mellitus (Chronic) Obsessive compulsive disorder (Chronic) Sleep apnea (Chronic) Urinary incontinence, mixed (Chronic) Vaginal wall prolapse (Chronic) Sarcoidosis Surgical History Abdominal hysterectomy Cholecystectomy Fracture, Open Treatment Lithotripsy Oophrectomy, Both Open Carpal Tunnel release Tonsillectomy and adenoidectomy Family History Mother Diabetes Heart disease Father Personal history of malignant neoplasm Sister Personal history of malignant neoplasm Social History Smoking/Tobacco Use Status: Former Tobacco Use Alcohol Intake: never Drug use: Occasionally Substance use type: marijuana Do you feel safe at home: Yes Do you feel safe in your relationship?: Yes Exam <JETT Santiago - Last Filed: 01/04/19 20:53> Const General: cooperative, diaphoretic and ill appearing acutely Nutritional Appearance: obese HENKY Head: normal to inspection Eyes General: appearance normal, both eyes and all related structures Chest Chest: normal inspection of the chest Resp Effort & Inspection: normal respiratory effort Auscultation: clear to auscultation bilaterally Cardio Rate: tachycardic Rhythm: regular rhythm Heart Sounds: S1 normal and S2 normal Pulses: normal peripheral pulses GI Inspection: normal to inspection and obesity Palpation: soft and tender periumbilically and suprapubicly; with no rebound tenderness Skin General skin exam: no rashes or lesions noted and pallor Neuro General: alert, awake and oriented x3 Course <JETT Santiago - Last Filed: 01/04/19 20:53> Vital Signs Pulse 130 H 01/04/19 17:04 Blood Pressure 99/58 L 01/04/19 17:04 Pulse Oximetry 92 L 01/04/19 17:04 Temperature Source Tympanic 01/04/19 17:04 Pulse 130 H 01/04/19 17:04 Respiratory Effort 01/04/19 17:13 Blood Pressure 99/58 L 01/04/19 17:04 Blood Pressure Position Supine 01/04/19 17:04 Pulse Oximetry 92 L 01/04/19 17:04 Oxygen Delivery Method Room Air 01/04/19 17:04 Oxygen Flow Rate 0 01/04/19 17:04 Pain Level 6 01/04/19 17:04 Critical Care Time <JETT Santiago - Last Filed: 01/04/19 20:53> Critical Care Time: Yes <Steven Aguilar MD - Last Filed: 01/10/19 11:22> Critical Care Time: Yes Total Critical Care Time: 40
[2019-01-04 17:52] LABS: Abs Immature Grans 0.09 k/cumm (0.0-0.09); Absolute Eosinophil Count 0.12 k/cumm (0.0-0.7); Basophils % 0.1; Eosinophils % 0.5; HCT 44.1 % (36.0-46.0); HGB 14.5 g/dL (12.0-15.5); Immature Grans % 0.4; Lymphocytes % 12.2; Mean Corp. HGB Concentration 32.9 g/dL (32.0-36.0); Mean Corpuscular Hemoglobin 29.8 pg (27.0-33.0); Mean Corpuscular Volume 90.7 fL (80-95); Mean Platelet Volume 10.8 fL (8.0-11.0); Monocytes % 5.6; Neutrophils % 81.2; Platelet Count 394 x1000/uL (130-400); RBC 4.86 m/cumm (4.00-5.20); RBC Distribution Width 13.1 % (11.7-14.6); White Blood Cell Count 24.46 k/cumm (4.4-10.8)
--- NOTE | 2019-01-04 17:53 | NUR.NOTE ---
mult iv placed 18 in lac 20 in l arm ivf infusing pt medicated as per mdo for pain/nausea labs drawn pending results pt [id number] diaphoretic ice pack provided for head pt on cont cardiac monitoring o2 nasal canual in place 3l will cont to monitor pt prashanth Nursing Note:
[2019-01-04 18:00] LABS: Absolute Basophil Count 0.02 k/cumm (0.0-0.2); Absolute Lymphocyte Count 2.98 k/cumm (1.2-3.4); Absolute Monocyte Count 1.37 k/cumm (0.11-0.7); Absolute Neutrophil Count 19.86 k/cumm (1.2-6.7)
[2019-01-04 18:08] LABS: ALT 43 U/L (12-78); AST 40 U/L (15-37); Albumin 4.4 g/dL (3.4-5.0); Alkaline Phosphatase 136 U/L (46-116); Anion Gap 17.9 mmol/L (3-11); BUN 13 mg/dL (7-18); Bilirubin, Total 1.3 mg/dL (0.2-1.0); CO2 19.1 mmol/L (21.0-32.0); CREATININE 0.91 mg/dL (0.55-1.02); Calcium 11.4 mg/dL (8.5-10.1); Chloride 97 mmol/L (98-107); Glucose 389 mg/dL (70-100); Lipase 165 U/L (73-393); Magnesium 1.6 mg/dL (1.8-2.4); Potassium 4.5 mmol/L (3.5-5.1); Sodium 134 mmol/L (136-145); Total Protein 9.1 g/dL (6.4-8.2)
[2019-01-04 18:12] LABS: Troponin I 0.21 ng/mL (0.00-0.06)
--- NOTE | 2019-01-04 18:18 | NUR.NOTE ---
pt to ct Nursing Note:
--- NOTE | 2019-01-04 18:32 | DI.RAD_ITS ---
SYMPTOM/DIAGNOSIS: NAUSEA ABD PAIN, LOW SAT PORTABLE CHEST: Comparison is made with 04 Dec 2016. The heart size is normal. There is mild underlying interstitial disease. There is increased prominence of interstitial markings when compared with the previous exam as well as mild vascular prominence consistent with superimposed pulmonary edema. IMPRESSION: Mild pulmonary edema
[2019-01-04] MEDS: Omnipaque 350 MG/ML 100 ML BTL IJ (18:38)
[2019-01-04] MEDS: cefTRIAXone 1 GM/50 ML BAG IVPB (18:46)
--- NOTE | 2019-01-04 18:48 | NUR.NOTE ---
1830 pt recived back from ct cxr performed at bedside 1846-iv antibiotics infusing pt on cont personnel monitor high flow [address] pt destats on reg n/c to low 80s will cont to monitor pt prashanth Nursing Note:
[2019-01-04] MEDS: metroNIDAZOLE 500 MG/100 ML BAG 100 MG IVPB (18:56)
--- NOTE | 2019-01-04 18:56 | DI.VRAD_ITS ---
EXAM: CT Abdomen and Pelvis With Contrast EXAM DATE/TIME: 01/04/2019 5:20 PM CLINICAL HISTORY: 58 years old, female; Abdominal pain; Prior surgery; Surgery type: Oophorectomy, jossie, hysterectomy, HX incarcerated hernia TECHNIQUE: Imaging protocol: Axial computed tomography images of the abdomen and pelvis with intravenous contrast. Coronal and sagittal reformatted images were created and reviewed. COMPARISON: CT Abdomen^ROUTINE ABDOMEN PELVIS WITH CONTRAST (Adult) 07/22/2018 12:04 PM FINDINGS: Mild basilar lung scarring. Prior cholecystectomy. Dilated loops of small bowel extending into an anterior abdominal wall hernia with nondilated loops of bowel exiting the hernia consistent with a small bowel obstruction secondary to incarceration. No evidence of strangulation. Mild irregularity to the kidneys with no specific abnormality. No significant free fluid. Prior hysterectomy. IMPRESSION: Partial small bowel obstruction secondary to incarcerated anterior abdominal wall hernia. Dictated and Authenticated by: Yeyo Shah MD. Ordering:TRISTON Self MD
--- NOTE | 2019-01-04 18:56 | DI.VRAD_ITS ---
EXAM: XR Chest, 1 View EXAM DATE/TIME: 01/04/2019 6:28 PM CLINICAL HISTORY: 58 years old, female; Signs and symptoms; Shortness of breath; Patient HX: Nausea, abdominal pain, low sat TECHNIQUE: Imaging protocol: XR of the chest, 1 view. COMPARISON: CR CHEST 2 VIEWS PA,LAT 12/04/2016 9:10 PM FINDINGS: Interstitial lung disease increased from the prior examination suggesting interstitial edema superimposed on interstitial scarring. This most likely is due to congestive heart failure. No significant focal consolidation. Mild cardiomegaly. No significant pleural effusion. IMPRESSION: Findings suggesting congestive heart failure with pulmonary interstitial edema. Dictated and Authenticated by: Yeyo Shah MD. Ordering:TRISTON Self MD
--- NOTE | 2019-01-04 18:58 | NUR.NOTE ---
resp at bedside bipap in place by respiratory Nursing Note:
[2019-01-04] MEDS: ACETAMINOPHEN 1,000 MG/100 ML BTL 10 MG (19:54)
[2019-01-04] MEDS: VANCOMYCIN 2,000 MG in Normal Saline 500 ML 250 MG IVPB (19:57)
== END 2019-01-04 19:52 | disposition short-term general hospital (02) ==
PROVIDERS: Emergency Provider Physician Assistant; PCP Family Medicine
DX: K45.0 Other specified abdominal hernia with obstruction, without gangrene (principal); I22.2 Subsequent non-ST elevation (NSTEMI) myocardial infarction; R00.0 Tachycardia, unspecified; I44.7 Left bundle-branch block, unspecified; D72.9 Disorder of white blood cells, unspecified; I95.9 Hypotension, unspecified; R74.0 Nonspecific elevation of levels of transaminase and lactic acid dehydrogenase [LDH]; E87.2 Acidosis; A41.9 Sepsis, unspecified organism; I50.9 Heart failure, unspecified; I13.0 Hypertensive heart and chronic kidney disease with heart failure and stage 1 through stage 4 chronic kidney disease, or unspecified chronic kidney disease; E11.29 Type 2 diabetes mellitus with other diabetic kidney complication; N18.9 Chronic kidney disease, unspecified
CPT/HCPCS: 80053; 82805; 83690; 87040; 93005; 96361; 96365; 96366; 96367; 96375; 99291; 71045; 74177; 83605; 83735; 84484; 85025; 93010; J0131; J0696; J2405; J3010; J3490

== ENCOUNTER 2019-02-19 17:33 | Emergency (ER) | payer MEDICARE, SELFPAY ==
[2019-02-19 17:32] VITALS: BP 118/84; PULSE 86
[2019-02-19 17:38] VITALS: BP 118/84; PULSE 90; RESP 16; TEMP 37.2; O2SAT 99
--- NOTE | 2019-02-19 17:43 | W.ED.GENAD ---
Discharge Plan Disposition Patient Disposition: [facility] Condition: Stable Discharge Details Chief Complaint: Fever Clinical Impression: Postoperative abscess Primary Care Provider: Albert Zuleta ED Provider: Iban Sams Home Meds and New Rx's Prescriptions: No Action spironolactone 25 mg tablet 25 mg PO DAILY RF: 0 atorvastatin 10 mg tablet 10 mg PO DAILY RF: 0 acetaminophen [Tylenol Extra Strength] 500 mg tablet 500 mg PO Q6H PRNRF: 0 amitriptyline 25 mg tablet 25 mg PO DAILY RF: 0 ibuprofen 200 mg tablet 200 mg PO QID PRNRF: 0 acyclovir 5 % cream 1 applic TP ONCE PRNRF: 0 diclofenac sodium [Voltaren] 1 % gel 2 gm TP QID PRNRF: 0 Probiotic 3 billion cell capsule 3,000 mmu cells PO DAILY RF: 0 levalbuterol tartrate 45 mcg/actuation HFA aerosol inhaler 2 inh IH Q6H RF: 0 Incruse Ellipta 62.5 mcg/actuation blister with device 1 inh IH DAILY RF: 0 cannabidiol (CBD) extract 100 mg/mL solution PO PRNRF: 0 nitroglycerin 0.4 MG tablet, sublingual 0.4 mg Sublingual PRN RF: 0 albuterol sulfate [ProAir HFA] 8.5 GM HFA aerosol inhaler 2 puff Inhalation QID PRN (Reason: Shortness Of Breath) RF: 0 glipizide-metformin 1 EACH tablet 500 mg PO BID RF: 0 Spiriva with HandiHaler 30 CAP capsule, w/inhalation device 1 cap Inhalation DAILY RF: 0 hydrocodone-acetaminophen 1 TAB tablet 2 tab PO PRN PRN (Reason: Pain) RF: 0 loratadine 10 mg Tablet 10 mg PO DAILY RF: 0 gabapentin 600 mg Tablet 1,800 mg PO TID RF: 0 carvedilol 3.125 mg Tablet 3.125 mg PO BID RF: 0 aspirin [Aspirin Childrens] 81 mg Tablet,Chewable 81 mg PO DAILY RF: 0 lisinopril 5 mg Tablet 5 mg PO DAILY RF: 0 magnesium 200 mg Tablet 400 mg PO BID RF: 0 Trulicity 1.5 mg/0.5 mL Pen Injector 1.75 mg subcut DIRECTED RF: 0 Medical Decision Making <Leon Schafer MD - Last Filed: 02/19/19 20:29> 58 yo female with multiple medical problems who last month in December was transferred to [facility] in septic shock with an sbo and ultimately required intubation and had surgeries to remove partial bowel, who was at home today when she had low grade fevers to 99.8 and some general weakness so wanted to get evaluated. She denies abd pain, cough, urinary symptoms, headache or neck stiffness. She arrives in no distress speaking in full sentences without abd tenderness. her incisions from the surgery are well healed without infectious findings. Given recent surgery and complaints will obtian CT to eval for abscess and also obtian lab work and ua and cxr. Denies rashes or tick bites so doubt lyme pt remains stable. Her CT shows abscess at surgical site with possible intrabdominal inflammation near this as well. I spoke with our general surgeon Dr. Heart who feels given her procedure was done at [facility] that she would be better managed there with her surgeons. Will consult with [facility] about transfer. Abx ordered while consult is pending. Differential Diagnosis uri, viral illness, abscess Medical Records Medical records reviewed: Yes I reviewed the patient's medical records. Imaging Data Radiologic Study: Attestation: I personally reviewed and interpreted this imaging study as follows: Imaging: X-Ray Radiologist's impression: Bones/joints: There are degenerative changes of the thoracic spine. IMPRESSION: No evidence of an infiltrate or a pleural effusion. Degenerative changes of the thoracic spine. Radiologic Study #2: Attestation: I personally reviewed and interpreted this imaging study as follows: Imaging: CT Scan Radiologist's impression: EXAM: CT Abdomen and Pelvis With Contrast EXAM DATE/TIME: 02/19/2019 5:42 PM CLINICAL HISTORY: 58 years old, female; Fever; Prior surgery; Surgery date: 1-6 months; Surgery type: Patient had surgery on bowel January 05 TECHNIQUE: Imaging protocol: Axial computed tomography images of the abdomen and pelvis with intravenous contrast. Coronal and sagittal reformatted images were created and reviewed. Radiation optimization: All CT scans at this facility use at least one of these dose optimization techniques: automated exposure control; mA and/or kV adjustment per patient size (includes targeted exams where dose is matched to clinical indication); or iterative reconstruction. Contrast material: OMNIPAQUE 350;Contrast volume: 100 ml;Contrast route: IV; COMPARISON: CT ABDOMEN PELVIS W 01/04/2019 6:21 PM FINDINGS: Lungs: The visualized lung bases are within normal limits. There is slight fibrosis at the right lung base. Heart: The visualized portions of the heart and pericardium appear within normal limits. Liver: There is mild fatty infiltration of the liver. The liver contour is slightly nodular. Cirrhosis is suspected. Gallbladder and bile ducts: The patient is status post cholecystectomy. Pancreas: The pancreas is within normal limits. Spleen: The spleen is enlarged. The spleen measured 14.6 cm in length. Adrenals: The adrenal glands are unremarkable. KRISTOPHER PACHECO Preliminary Radiology Report BOARD MIXER TENDER (QA) DISCREPANCY? If there is a discrepancy between the preliminary and final interpretation, please notify [employer] via [email or web address]. If you do not have access to our QA portal, call our QA team at [phone] CONFIDENTIALITY STATEMENT This report is intended only for the use of the referring physician, and only in accordance with law, If you received this in error, call [phone] Page 2 of 2 Kidneys and ureters: There is a calcification in the midpole of the right kidney measuring 4 mm. This is nonobstructing. The left kidney is within normal limits. Stomach and bowel: The patient is status post bowel surgery. The anastomosis appears intact. The cecum is displaced to the midline. There is no evidence of bowel obstruction. Appendix: The appendix is visualized and is within normal limits. Intraperitoneal space: Normal. No free air. No significant fluid collection. Vasculature: There are arteriosclerotic changes of the aorta. There are phleboliths within the pelvis. Lymph nodes: No enlarged lymph nodes. Bladder: The urinary bladder is within normal limits. Reproductive: The patient is status post hysterectomy. Bones/joints: There are degenerative changes of the thoracic and lumbar spines. There are degenerative changes of both hips. The left hip is more affected than the right. Soft tissues: At the level of a surgical scar, there is an abscess which extends from the anterior abdominal musculature. The abscess measures approximately 7.8 x 4.3 cm. Involvement of the anterior abdominal musculature is not excluded. The large bowel is adjacent to the suspected infectious involvement of the anterior abdominal musculature. IMPRESSION: Abscess as described above. Clinical correlation is recommended. Osseous findings as above. Mild fatty infiltration of the liver. Cirrhosis is suspected. Splenomegaly. Status post cholecystectomy. Status post hysterectomy. Status post bowel surgery. Right nephrolithiasis without evidence of obstruction. Lab Data Lab results reviewed: Yes I reviewed the patient's lab results. <Iban Sams DO - Last Filed: 02/19/19 20:21> The case was signed out from my colleague Dr. Leon Schafer. We are pending callback from [facility] at that time. [facility] has called back, and the case was discussed with Dr. Ace Henry. Patient's exam on my reassessment demonstrates a notably firm abscess on the central left paramedian postop site. Mild cellulitis on the abdominal wall, but more notable is the abscess itself. This is certainly confirmed with the CT scan. She remains hemodynamically stable. The case and the patient's presentation and imaging findings were discussed with Dr. Henry. We discussed our surgeons request for transfer. He agrees for transfer to [facility] for further medical management and potential surgical management. I have extensively reviewed the treatment plan with the patient. I have addressed all patient concerns at this time. I have also discussed the plan with the admitting physician and they agree with the current assessment and plan and have agreed to assume responsibility for the patient. All parties demonstrate verbal understanding and agreement with our assessment and plan at this time. At time of transfer the patient was reassessed and continued to demonstrate current medical stability. No signs of acute respiratory distress requiring intubation, hemodynamic instability requiring pressor support, or rapidly declining mental status. The patient is stable for transport. HPI <Leon Schafer MD - Last Filed: 02/19/19 20:29> General Mode of arrival: wheelchair. Date/Time Provider Initiated Documentation: 02/19/19 17:34. Limitations to Documentation: no limitations. Information obtained by: patient. History of Present Illness 58 year old F presents to the emergency department with the chief complaint of fever, described as mild, Patient started experiencing this hour(s) (6) and it has been intermittent. No relieving factors improve symptom(s), No exacerbating factors reported . Related Data Home Medications Medication Instructions Recorded Confirmed nitroglycerin 0.4 mg SUBLINGUAL PRN 11/07/12 02/19/19 Spiriva with HandiHaler 1 cap INHALATION DAILY 02/03/13 01/04/19 albuterol sulfate [ProAir HFA] 2 puff INHALATION QID PRN 02/03/13 02/19/19 glipizide-metformin 500 mg PO BID 02/03/13 02/19/19 hydrocodone-acetaminophen 2 tab PO PRN PRN 02/13/13 02/19/19 spironolactone 25 mg tablet 25 mg PO DAILY 05/28/18 02/19/19 loratadine 10 mg PO DAILY 07/09/18 02/19/19 Trulicity 1.75 mg SUBCUT DIRECTED 07/22/18 01/04/19 aspirin [Aspirin Childrens] 81 mg PO DAILY 07/22/18 02/19/19 carvedilol 3.125 mg PO BID 07/22/18 02/19/19 gabapentin 1,800 mg PO TID 07/22/18 02/19/19 lisinopril 5 mg PO DAILY 07/22/18 02/19/19 magnesium 400 mg PO BID 07/22/18 02/19/19 acetaminophen 500 mg tablet 500 mg PO Q6H PRN 12/19/18 02/19/19 acyclovir 5 % topical cream 1 applic TP ONCE PRN 12/19/18 01/04/19 amitriptyline 25 mg tablet 25 mg PO DAILY 12/19/18 02/19/19 atorvastatin 10 mg tablet 10 mg PO DAILY 12/19/18 02/19/19 cannabidiol (CBD) extract 100 PO PRN ml 12/19/18 12/19/18 mg/mL oral solution diclofenac sodium 1 % topical gel 2 gm TP QID PRN 12/19/18 01/04/19 ibuprofen 200 mg tablet 200 mg PO QID PRN 12/19/18 02/19/19 lactobacillus combination no.4 3 3,000 mmu cells PO DAILY 12/19/18 02/19/19 billion cell capsule levalbuterol tartrate 45 2 inh IH Q6H 12/19/18 02/19/19 mcg/actuation aerosol inhaler umeclidinium 62.5 mcg/actuation 1 inh IH DAILY 12/19/18 01/04/19 blister powder for inhalation Allergies Allergy/AdvReac Type Severity Reaction Status Date / Time nitrofurantoin Allergy Severe Psychosis Verified 02/19/19 17:41 [From Macrobid] sulfamethoxazole Allergy Intermediate Hives Verified 02/19/19 17:41 [From Bactrim] trimethoprim [From Bactrim] Allergy Intermediate Hives Verified 02/19/19 17:41 erythromycin base Allergy Unknown Verified 02/19/19 17:41 lidocaine Allergy Unknown Verified 02/19/19 17:41 amoxicillin trihydrate Allergy body rash Verified 02/19/19 17:41 [From Augmentin] potassium clavulanate Allergy body rash Verified 02/19/19 17:41 [From Augmentin] clomipramine [From Anafranil] AdvReac Intermediate Other (See Verified 02/19/19 17:41 Comment) ketamine AdvReac Intermediate hallucinati Verified 02/19/19 17:41 ons General Stated Complaint: Fever GROVER: 2 Review of Systems <Leon Schafer MD - Last Filed: 02/19/19 20:29> Review of Systems All systems reviewed & are unremarkable except as noted in HPI and below Constitutional Denies chills ENT Denies change in voice Cardiovascular Denies chest pain and Denies dyspnea Respiratory Denies cough and Denies dyspnea Gastrointestinal Denies abdominal pain, Denies nausea and Denies vomiting Genitourinary Denies dysuria Musculoskeletal Denies joint swelling Integumentary/Breasts Denies rash Endocrine Denies heat intolerance PFSH <Leon Schafer MD - Last Filed: 02/19/19 20:29> Social History Smoking/Tobacco Use Status: Former Tobacco Use Alcohol Intake: never Drug use: Occasionally Substance use type: marijuana Do you feel safe at home: Yes Do you feel safe in your relationship?: Yes Exam <Leon Schafer MD - Last Filed: 02/19/19 20:29> Const General: no acute distress Orientation: alert HENMT Head: normal to inspection Ears: external ears normal General nose exam: external nose normal Mouth: moist mucous membranes Eyes General: appearance normal, both eyes and all related structures Neck Neck: normal visual inspection Resp Effort & Inspection: normal respiratory effort and able to speak in complete sentences Cardio Rate: regular rate Skin General skin exam: no rashes or lesions noted Neuro General: alert and oriented x3 Extrem General: normal to inspection Psych Mental Status: mental status grossly normal Course <Leon Schafer MD - Last Filed: 02/19/19 20:29> Vital Signs Temperature 37.2 C 02/19/19 17:38 Pulse 90 02/19/19 17:38 Respiratory Rate 16 02/19/19 17:38 Blood Pressure 118/84 02/19/19 17:38 Pulse Oximetry 99 02/19/19 17:38 Temperature 37.2 C 02/19/19 17:38 Temperature Source Oral 02/19/19 17:38 Pulse 90 02/19/19 17:38 Respiratory Rate 16 02/19/19 17:38 Respiratory Effort Non-Labored 02/19/19 17:38 Blood Pressure 118/84 02/19/19 17:38 Blood Pressure Position Sitting 02/19/19 17:38 Pulse Oximetry 99 02/19/19 17:38 Oxygen Delivery Method Room Air 02/19/19 17:38 Oxygen Flow Rate 0 02/19/19 17:38 Pain Level 0 02/19/19 17:38 Lab/Test Results Lab/Test Results: 02/19/19 17:40 Blood Blood Culture - Pending 02/19/19 17:40 Blood Blood Culture - Pending Sign Out <Leon Schafer MD - Last Filed: 02/19/19 20:29> Sign Out Data: Sign Out Comment: pending consult with [facility] general surgery for her surgical site abscess Last updated by Leon Schafer MD at 02/19/19 19:37
[2019-02-19] MEDS: Normal Saline 1,000 ML 1000 ML IV (17:58)
[2019-02-19] MEDS: Omnipaque 350 MG/ML 100 ML BTL IJ (18:05)
--- NOTE | 2019-02-19 18:10 | DI.CT_ITS ---
SYMPTOM/DIAGNOSIS: FEVERS, RECENT SBO WITH BOWEL RESECTION. CT ABDOMEN AND PELVIS: The study was carried out according to the usual protocol with intravenous administration of 100 cc Omnipaque 350. The lung bases are unremarkable. There is mild fatty infiltration of the liver and there is slightly nodular appearance of the liver contour. The possibility of cirrhosis is raised. The patient is status post cholecystectomy. The pancreas is normal. Splenomegaly is demonstrated. The adrenals are unremarkable. There is evidence of right nephrolithiasis with no evidence of hydronephrosis. The left kidney is unremarkable. The patient is status post bowel surgery. The anastomosis appears intact. The cecum is displaced to the midline. There is no evidence of bowel obstruction. The appendix is within normal limits. There is no evidence of free fluid in the intraperitoneal space. There are atherosclerotic changes involving the aorta without evidence of an aneurysm. There is no evidence of lymphadenopathy. The bladder appears normal. The patient is status post hysterectomy. Note is made of degenerative changes involving the T and lumbar spine and both hips. At the level of the surgical scar there is an abscess which extends from the anterior abdominal musculature. The abscess measures up to 7.8 x 4.3 cm. Involvement of the anterior abdominal musculature is not excluded. The large bowel is adjacent to the suspected infection involving the anterior abdominal musculature. SUMMARY: There is an apparent abscess as noted above. Clinical correlation is requested. There is mild fatty infiltration of the liver and the possibility of cirrhosis is raised. Splenomegaly is noted. Patient is status post cholecystectomy and post hysterectomy. There are findings consistent with bowel surgery. Right nephrolithiasis is identified without evidence of obstruction. There is an apparent abscess measuring 7.8 x 4.3 cm involving the anterior abdominal musculature. Clinical correlation is recommended.
--- NOTE | 2019-02-19 18:12 | DI.RAD_ITS ---
SYMPTOM/DIAGNOSIS: FEVER PA AND LATERAL CHEST: The heart is normal in size. The lungs are clear. The mediastinal structures and pleura appear intact. CONCLUSION: Normal chest. No evidence of acute cardiopulmonary disease.
[2019-02-19 18:15] LABS: Lactate-non-spesis 2.6 mmol/l (0.6-1.4)
[2019-02-19 18:41] LABS: Abs Immature Grans 0.03 k/cumm (0.0-0.09); Absolute Basophil Count 0.02 k/cumm (0.0-0.2); Absolute Eosinophil Count 0.13 k/cumm (0.0-0.7); Absolute Lymphocyte Count 2.94 k/cumm (1.2-3.4); Absolute Neutrophil Count 7.56 k/cumm (1.2-6.7); Basophils % 0.2; Eosinophils % 1.1; HGB 11.5 g/dL (12.0-15.5); Immature Grans % 0.3; Lymphocytes % 25.6; Mean Corp. HGB Concentration 31.9 g/dL (32.0-36.0); Mean Corpuscular Hemoglobin 28.8 pg (27.0-33.0); Mean Platelet Volume 10.5 fL (8.0-11.0); Neutrophils % 65.8; Platelet Count 319 x1000/uL (130-400); RBC Distribution Width 13.3 % (11.7-14.6); White Blood Cell Count 11.49 k/cumm (4.4-10.8)
--- NOTE | 2019-02-19 18:41 | DI.VRAD_ITS ---
EXAM: CT Abdomen and Pelvis With Contrast EXAM DATE/TIME: 02/19/2019 5:42 PM CLINICAL HISTORY: 58 years old, female; Fever; Prior surgery; Surgery date: 1-6 months; Surgery type: Patient had surgery on bowel January 05 TECHNIQUE: Imaging protocol: Axial computed tomography images of the abdomen and pelvis with intravenous contrast. Coronal and sagittal reformatted images were created and reviewed. Radiation optimization: All CT scans at this facility use at least one of these dose optimization techniques: automated exposure control; mA and/or kV adjustment per patient size (includes targeted exams where dose is matched to clinical indication); or iterative reconstruction. Contrast material: OMNIPAQUE 350;Contrast volume: 100 ml;Contrast route: IV; COMPARISON: CT ABDOMEN PELVIS W 01/04/2019 6:21 PM FINDINGS: Lungs: The visualized lung bases are within normal limits. There is slight fibrosis at the right lung base. Heart: The visualized portions of the heart and pericardium appear within normal limits. Liver: There is mild fatty infiltration of the liver. The liver contour is slightly nodular. Cirrhosis is suspected. Gallbladder and bile ducts: The patient is status post cholecystectomy. Pancreas: The pancreas is within normal limits. Spleen: The spleen is enlarged. The spleen measured 14.6 cm in length. Adrenals: The adrenal glands are unremarkable. Kidneys and ureters: There is a calcification in the midpole of the right kidney measuring 4 mm. This is nonobstructing. The left kidney is within normal limits. Stomach and bowel: The patient is status post bowel surgery. The anastomosis appears intact. The cecum is displaced to the midline. There is no evidence of bowel obstruction. Appendix: The appendix is visualized and is within normal limits. Intraperitoneal space: Normal. No free air. No significant fluid collection. Vasculature: There are arteriosclerotic changes of the aorta. There are phleboliths within the pelvis. Lymph nodes: No enlarged lymph nodes. Bladder: The urinary bladder is within normal limits. Reproductive: The patient is status post hysterectomy. Bones/joints: There are degenerative changes of the thoracic and lumbar spines. There are degenerative changes of both hips. The left hip is more affected than the right. Soft tissues: At the level of a surgical scar, there is an abscess which extends from the anterior abdominal musculature. The abscess measures approximately 7.8 x 4.3 cm. Involvement of the anterior abdominal musculature is not excluded. The large bowel is adjacent to the suspected infectious involvement of the anterior abdominal musculature. IMPRESSION: Abscess as described above. Clinical correlation is recommended. Osseous findings as above. Mild fatty infiltration of the liver. Cirrhosis is suspected. Splenomegaly. Status post cholecystectomy. Status post hysterectomy. Status post bowel surgery. Right nephrolithiasis without evidence of obstruction. Dictated and Authenticated by: Leonel Damon MD. Ordering:CLIFTON Quintero MD
[2019-02-19 18:42] LABS: ALT 20 U/L (12-78); AST 20 U/L (15-37); Albumin 3.8 g/dL (3.4-5.0); Alkaline Phosphatase 129 U/L (46-116); Anion Gap 8.2 mmol/L (3-11); BUN 7 mg/dL (7-18); Bilirubin, Total 0.8 mg/dL (0.2-1.0); CO2 22.8 mmol/L (21.0-32.0); CREATININE 0.63 mg/dL (0.55-1.02); Calcium 11.3 mg/dL (8.5-10.1); Chloride 101 mmol/L (98-107); Glucose 130 mg/dL (70-100); Magnesium 1.4 mg/dL (1.8-2.4); Potassium 3.5 mmol/L (3.5-5.1); Sodium 132 mmol/L (136-145); Total Protein 8.7 g/dL (6.4-8.2)
--- NOTE | 2019-02-19 18:42 | DI.VRAD_ITS ---
EXAM: XR Chest, 2 Views EXAM DATE/TIME: 02/19/2019 5:42 PM CLINICAL HISTORY: 58 years old, female; Fever TECHNIQUE: Imaging protocol: XR of the chest, 2 views. COMPARISON: SC XR PORTABLE CHEST AP 01/04/2019 6:30 PM FINDINGS: Lungs: There is no evidence of an infiltrate. Pleural space: Unremarkable. No pleural effusion. No pneumothorax. Heart/Mediastinum: The cardiac, mediastinal and hilar silhouettes are unremarkable. Bones/joints: There are degenerative changes of the thoracic spine. IMPRESSION: No evidence of an infiltrate or a pleural effusion. Degenerative changes of the thoracic spine. Dictated and Authenticated by: Leonel Damon MD. Ordering:CLIFTON Quintero MD
[2019-02-19] MEDS: MEROPENEM 1 GM in Normal Saline 100 ML IVPB (19:26)
[2019-02-19] MEDS: Normal Saline Flush 10 ML SYR IVP (19:29)
[2019-02-19 19:30] LABS: Bilirubin Negative (Negative); Blood Negative (Negative); Clarity Clear (Clear); Glucose Negative (Negative); Ketones Negative (Negative); Leukocyte Esterase Small (Negative); Nitrite Negative (Negative); Specific Gravity <= 1.005 (1.005-1.025); Urobilinogen 0.2 EU/dL (Up TO 0.2); pH 5.5 (5-8)
[2019-02-19 19:40] LABS: Bacteria Moderate HPF (Negative); C & S Indicated? Yes; Casts Negative LPF (Negative); Crystals Negative HPF (Negative); Epithelial Cells Rare HPF (Negative); Mucus Negative (Negative); RBC Negative (0-2); WBC >50 HPF (0-5)
[2019-02-19] MEDS: VANCOMYCIN 1,000 MG in Normal Saline 250 ML 166.6666 MG IVPB (20:05)
[2019-02-19 21:06] VITALS: TEMP 36.8
[2019-02-19 21:20] VITALS: BP 120/84; PULSE 89; RESP 16; O2SAT 99
--- NOTE | 2019-02-24 08:45 | ED.FU.B_ITS ---
Date of service: 02/24/19 Time of Service: 08:45 Follow Up Plan: Patient contacted the emergency department requesting update for her blood and urine cultures. She was transferred to [facility] previously, spent an extended stay down there on broad-spectrum antibiotics for her abdominal abscess. She states that she has been doing very well since she was discharged. She has had no fevers or other abnormalities. She is currently on outpatient antibiotics from [facility]. Urine and blood culture results were sent to [facility] prior to her disposition. The results were reviewed with the patient. She has no growth for her blood cultures. Urine cultures were positive for E. coli with numerous resistances. Currently the patient states that she has no urinary-like symptoms. No dysuria, frequency, hematuria, or pain with urination. She denies any fevers or chills. She is otherwise asymptomatic. I suspect that the questionable UTI was initially successfully managed by the broad-spectrum antibiotics that the patient was on while at [facility] and when she was initially transferred from here. Patient is doing well. Recommended that she follow-up closely with her PCP. I discussed red flags which to return, as well as signs and symptoms concerning for UTI, sepsis and urosepsis. I have extensively reviewed the treatment plan with the patient. I have addressed all patient concerns at this time. The patient was made aware of what symptoms to monitor for that would warrant a return to the emergency department. Discussed the plan with the patient, they demonstrate verbal understanding and agreement with our assessment and plan at this time.
== END 2019-02-19 21:10 | disposition short-term general hospital (02) ==
PROVIDERS: Emergency Medicine; Emergency Provider Student in an Organized Health Care Education/Training Program; PCP Family Medicine
DX: T81.49XA Infection following a procedure, other surgical site, initial encounter (principal); E11.9 Type 2 diabetes mellitus without complications
CPT/HCPCS: 36415; 80053; 87040; 87077; 96361; 96365; 99285; 71046; 74177; 81003; 81015; 83605; 83735; 85025; 87086; 87186; 99284; J3490

== ENCOUNTER 2019-02-28 16:40 | Outpatient (REF) | payer MEDICARE, SELFPAY | END 2019-02-28 17:00 | LOC: LBN 16:40 | PROVIDERS: PCP Family Medicine; Visit Provider Student in an Organized Health Care Education/Training Program | DX: R19.7 Diarrhea, unspecified (principal) | CPT/HCPCS: 87324 ==

== ENCOUNTER → 2019-04-14 08:23 | Outpatient (BNVA) | payer MEDICARE, SELFPAY | PROVIDERS: PCP Family Medicine; Referring Provider Family Medicine; Visit Provider Student in an Organized Health Care Education/Training Program | DX: M17.11 Unilateral primary osteoarthritis, right knee (principal); M17.12 Unilateral primary osteoarthritis, left knee; M75.81 Other shoulder lesions, right shoulder; M25.511 Pain in right shoulder | CPT/HCPCS: 20610; 99214; J1040; J7325 ==

== ENCOUNTER 2020-01-09 03:58 | Outpatient (CLI) | payer MEDICARE, SELFPAY | END 2020-01-09 04:18 | PROVIDERS: PCP Family Medicine; Visit Provider Urology | DX: R39.9 Unspecified symptoms and signs involving the genitourinary system (principal) | CPT/HCPCS: 87077; 87086; 87186 ==

== ENCOUNTER → 2020-01-16 09:53 | Outpatient (BNVA) | payer MEDICARE, SELFPAY | PROVIDERS: PCP Family Medicine; Visit Provider Student in an Organized Health Care Education/Training Program | DX: M17.12 Unilateral primary osteoarthritis, left knee (principal); M17.11 Unilateral primary osteoarthritis, right knee; M77.8 Other enthesopathies, not elsewhere classified; M25.511 Pain in right shoulder | CPT/HCPCS: 20610; 99213; J7325 ==

== ENCOUNTER 2020-02-16 17:36 | Outpatient (REF) | payer MEDICARE, SELFPAY | END 2020-02-16 17:56 | LOC: NCHCN 17:36 | PROVIDERS: PCP Family Medicine; Visit Provider Nurse Practitioner Family | DX: N39.0 Urinary tract infection, site not specified (principal) | CPT/HCPCS: 87086 ==

== ENCOUNTER 2020-03-12 16:14 | Outpatient (REF) | payer MEDICARE, SELFPAY ==
[2020-03-12 21:18] LABS: HGB 11.6 g/dL (11.2-15.7); MCH 30.9 pg (27.0-33.0); MCHC 32.2 % (32.0-36.0); MCV 95.7 fL (80-95); Platelet Count 193 10^3/uL (130-400); RBC 3.76 10^6/uL (3.93-5.22); RDW 13.1 % (11.7-14.6); RDW-SD 45.5 fL; WBC 10.37 10^3/uL (4.4-10.8)
[2020-03-12 21:34] LABS: Prothrombin Time 10.4 sec (9.3-11.0)
[2020-03-12 22:37] LABS: ALT 59 U/L (14-59); AST 52 U/L (15-37); Alkaline Phosphatase 93 U/L (46-116); Anion Gap 12.1 mmol/L (3-11); BUN 15 mg/dL (7-18); Bilirubin, Total 0.7 mg/dL (0.2-1.0); CO2 22.9 mmol/L (21.0-32.0); CREATININE 0.85 mg/dL (0.55-1.02); Calcium 9.7 mg/dL (8.5-10.1); Chloride 100 mmol/L (98-107); Glucose 240 mg/dL (74-106); Potassium 4.5 mmol/L (3.5-5.1); Sodium 135 mmol/L (136-145); Total Protein 7.7 g/dL (6.4-8.2)
== END 2020-03-12 16:34 ==
LOC: NCHCN 16:14
PROVIDERS: PCP Family Medicine; Visit Provider Family Medicine
DX: K74.60 Unspecified cirrhosis of liver (principal); N39.0 Urinary tract infection, site not specified
CPT/HCPCS: 80053; 85027; 85610; 87086

== ENCOUNTER 2020-03-23 04:51 | Outpatient (CLI) | payer MEDICARE, SELFPAY | END 2020-03-23 05:11 | PROVIDERS: PCP Family Medicine; Visit Provider Urology | DX: R39.9 Unspecified symptoms and signs involving the genitourinary system (principal) | CPT/HCPCS: 87077; 87086; 87186 ==

== ENCOUNTER 2020-04-08 04:25 | Outpatient (CLI) | payer MEDICARE, SELFPAY | END 2020-04-08 04:45 | PROVIDERS: PCP Family Medicine; Visit Provider Urology | DX: R39.9 Unspecified symptoms and signs involving the genitourinary system (principal) | CPT/HCPCS: 87086 ==

== ENCOUNTER 2020-06-29 01:36 | Outpatient (CLI) | payer MEDICARE, SELFPAY ==
--- NOTE | 2020-06-29 | DI.US_ITS ---
EXAM: US ABDOMEN CLINICAL HISTORY: CIRRHOSIS OF LIVER,K74.60, HCC SCREENING TECHNIQUE: Ultrasound performed using standard protocol. COMPARISON: US THYROID ULTRASOUND from 06/19/[address] ABDOMEN PELVIS W from 02/19/2019 FINDINGS: Abdominal ultrasound was performed according to the usual protocol. Examination is very limited seco ndary to the patient's body habitus. The liver is incompletely visualized. There is hepatomegaly an d there is increased echogenicity of hepatic parenchyma, consistent with hepatic steatosis. The spleen is enlarged. No focal splenic defect seen. Prior cholecystectomy noted. No biliary dilatation. Pancreas poorly visualized. Limited visualization of the kidneys, no gross hydronephrosis or nephrolithiasis. Visualized portions of abdominal aorta and IVC are of normal diameter. IMPRESSION: Hepatomegaly and splenomegaly, probable hepatic steatosis. Otherwise unremarkable examination post cholecystectomy. Limited study. DATA REPOSITORY:
== END 2020-06-29 01:56 ==
PROVIDERS: PCP Family Medicine; Visit Provider Family Medicine
DX: K74.60 Unspecified cirrhosis of liver (principal); K76.0 Fatty (change of) liver, not elsewhere classified; R16.2 Hepatomegaly with splenomegaly, not elsewhere classified; Z90.49 Acquired absence of other specified parts of digestive tract
CPT/HCPCS: 76700

== ENCOUNTER → 2020-07-19 13:20 | Outpatient (BNVA) | payer MEDICARE, SELFPAY | PROVIDERS: PCP Family Medicine; Visit Provider Student in an Organized Health Care Education/Training Program | DX: M17.12 Unilateral primary osteoarthritis, left knee (principal); M17.11 Unilateral primary osteoarthritis, right knee | CPT/HCPCS: 20610; 99212; J7325 ==

== ENCOUNTER 2020-07-28 02:58 | Outpatient (CLI) | payer MEDICARE, SELFPAY ==
--- NOTE | 2020-07-28 14:00 | DI.MAMMO_ITS ---
EXAM: MG MAMMO SCREENING 60 MIN DUR CLINICAL HISTORY: SCREENING, Z12.39. TECHNIQUE: Bilateral full field digital CC and MLO mammographic images were obtained with 3D tomosyn thesis and utilizing computer aided detection (CAD). COMPARISON: Prior mammograms dating back to 2012, the most recent being November 2018.. FINDINGS: There are no spiculated masses nor malignant appearing microcalcification groups. Benign micro and ma crocalcifications are again noted in both breast. There is no significant architectural distortion n or skin thickening-retraction. IMPRESSION: No radiographic evidence of malignancy. BI-RADS Category 1 - Negative Breast Density - Category B - Scattered areas of fibroglandular density Breast density Category C or D implies that the patient has dense breast tissue. Dense breast tissue can make it harder to find cancer on a mammogram. Dense breast tissue is also associated with an incr eased risk of breast cancer. This information about the result of the mammogram report was provided to the patient to raise their awareness. Use this report when you speak with the patient about their risks for breast cancer, which includes their family history. At that time, you may recommend additional screening tests (Ultrasoun d or MRI) as these tests may add significant information. A negative radiographic report should not delay biopsy if a dominant or clinically suspicious mass is present. Up to ten percent of cancers are not identified on mammography. A negative report may reinforce clinical impression. Adenosis and dense breasts may obscure an underlying neoplasm. False positive reports average 6 to 10%. Patient will receive a letter notifying them of these results.
== END 2020-07-28 03:18 ==
PROVIDERS: PCP Family Medicine; Visit Provider Nurse Practitioner Family
DX: Z12.31 Encounter for screening mammogram for malignant neoplasm of breast (principal); R92.0 Mammographic microcalcification found on diagnostic imaging of breast
CPT/HCPCS: 77063; 77067

== ENCOUNTER 2020-08-17 03:49 | Outpatient (CLI) | payer MEDICARE, SELFPAY ==
[2020-08-17 13:48] LABS: HCT 35.4 % (36.0-46.0); HGB 11.7 g/dL (11.2-15.7); MCH 30.5 pg (27.0-33.0); MCHC 33.1 % (32.0-36.0); MCV 92.4 fL (80-95); MPV 10.1 fL (8.0-11.0); Platelet Count 172 10^3/uL (130-400); RBC 3.83 10^6/uL (3.93-5.22); RDW 12.9 % (11.7-14.6); RDW-SD 43.7 fL
[2020-08-17 14:00] LABS: INR 1.1 (0.9-1.1)
[2020-08-17 14:27] LABS: Hemoglobin A1C 11.1 % (<5.7)
[2020-08-17 15:16] LABS: Iron 63 ug/dL (50-170); Total Iron Binding Capacity 368 ug/dL (250-450); Transferrin Sat 17 % (15-50)
[2020-08-17 15:43] LABS: ALT 42 U/L (14-59); AST 34 U/L (15-37); Albumin 3.8 g/dL (3.4-5.0); Alkaline Phosphatase 110 U/L (46-116); BUN 23 mg/dL (7-18); Bilirubin, Total 0.9 mg/dL (0.2-1.0); CREATININE 1.08 mg/dL (0.55-1.02); Calcium 9.3 mg/dL (8.5-10.1); Chloride 100 mmol/L (98-107); Estimated GFR 51.75 (mL/min/1.73m2); Ferritin 103 ng/mL (8-252); Glucose 488 mg/dL (74-106); Sodium 132 mmol/L (136-145); Total Protein 7.5 g/dL (6.4-8.2); Vitamin B12 319 pg/mL (193-986)
== END 2020-08-17 04:09 ==
PROVIDERS: PCP Family Medicine; Visit Provider Family Medicine
DX: D64.9 Anemia, unspecified (principal); E11.9 Type 2 diabetes mellitus without complications; K74.60 Unspecified cirrhosis of liver
CPT/HCPCS: 36415; 80053; 85027; 82607; 82728; 83036; 83540; 83550; 85610

== ENCOUNTER 2020-10-06 02:27 | Outpatient (CLI) | payer MEDICARE, SELFPAY ==
[2020-10-06 11:27] LABS: Bilirubin Negative (Negative); Blood Large (Negative); Clarity Cloudy (Clear); Glucose Negative (Negative); Ketones Negative (Negative); Leukocyte Esterase Moderate (Negative); Nitrite Negative (Negative); Specific Gravity 1.025 (1.005-1.025); Urobilinogen 0.2 EU/dL (Up TO 0.2)
[2020-10-06 11:37] LABS: WBC >50 HPF (0-5)
[2020-10-06 11:38] LABS: C & S Indicated? Yes; RBC >50 HPF (0-2)
== END 2020-10-06 02:28 | disposition home or self-care (01) ==
LOC: LBO 02:27
PROVIDERS: PCP Family Medicine; Visit Provider Family Medicine
DX: R82.91 Other chromoabnormalities of urine (principal)
CPT/HCPCS: 81003; 81015; 87086

== ENCOUNTER 2020-10-18 02:20 | Outpatient (CLI) | payer MEDICARE, SELFPAY ==
--- NOTE | 2020-10-18 | DI.CT_ITS ---
EXAM: CT ABDOMEN PELVIS WO/W CLINICAL HISTORY: GROSS HEMATURIA,R31.0. TECHNIQUE: Imaging Protocol: Axial computed tomography images with coronal and sagittal reformatted images were created and reviewed CONTRAST MATERIAL: Intravenous: Omnipaque 100cc Oral: None COMPARISON: CT CT ABDOMEN PELVIS W from 02/19/2019 FINDINGS: VISUALIZED LUNG BASES: Mild pleural based increased markings in the posterior basal segment right low er lobe. No large pleural effusions.. ABDOMEN: There is no ascites. LIVER: Liver is slightly prominent in size. No distinct focal hepatic masses are seen. There is sma ll lymph nodes and streaking around this iliac artery and its main branch point. GALLBLADDER/BILIARY: The gallbladder surgically absent. There is no dilatation of intrahepatic ducts . CBD is not dilated. PANCREAS: No evidence of pancreatic mass nor dilatation of the pancreatic duct. SPLEEN: Spleen size upper normal. Splenic and portal veins are patent. ADRENALS: There are no significant adrenal masses. KIDNEYS:There is a nonobstructive calculus in the right kidney measuring 5 x 3 millimeters. Another slightly larger calculus seen in the lower pole calyx of the right kidney. There is an [address] calculus in the lower pole of the opposite-left. No solid renal masses. There is a small cyst i n the superior pole of the right kidney which measures 6 millimeters ABDOMINAL AORTA: Abdominal aorta is not enlarged. LYMPH NODES:There are few small para-aortic lymph nodes noted. ABDOMINAL WALL/GI: The previously present abscess in the anterior abdominal wall has resolved. There is some bowel herniation into the pannus which appears to the the mobile cecum there is also a thin viscus within the sac which is either the appendix or Meckel's diverticulum. PELVIS: GI: No evidence of appendicitis.No evidence of sigmoid diverticulitis. LYMPH NODES: There is no intrapelvic nor inguinal adenopathy. REPRODUCTIVE: The uterus is surgically absent. Ovaries are not seen and presumed to be surgically ab sent. URINARY BLADDER: No calculi nor obvious masses evident OSSEOUS: No significant osseous lesions. Degenerative changes both hips. IMPRESSION: 1. There are bilateral nonobstructive calculi as described above in both kidneys. . There is a 6 millimeter benign cyst in the superior aspect of right kidney. The largest calculus is in the lower pole of the left kidney and measures approximately 8 x 5 millimeters. 3. No solid renal masses. 6 millimeter benign cyst in the superior aspect of the right kidney noted. 4. Compared to January 2019 there has been significant improvement in the appearance of lower abdominal wall abscess. There is presently a pannus hernia which contains nonobstructed bowel loops Advanced degenerative changes in both hips. No significant osseous lesions identified. RADIATION DOSE DELIVERED: 6,487.39mGy.cm Total DLP DATA REPOSITORY: All CT scans at this facility are submitted to the National Radiology Data Registry (NRDR) Dose Index Registry (DIR) with the [employer] (ACR). RADIATION OPTIMIZATION: All CT scans at this facility use at least one of these dose optimization te chniques: automated exposure control; mA and/or kV adjustment per patient size (includes targeted exa ms where dose is matched to clinical indication); or iterative reconstruction.
[2020-10-18 08:42] LABS: CREATININE 0.9 mg/dL (0.55-1.02)
[2020-10-18] MEDS: Omnipaque 350 MG/ML 100 ML BTL IV (09:43)
[2020-10-18] MEDS: Normal Saline - Diluent 50 ML VIAL IV (09:44)
== END 2020-10-18 02:40 ==
PROVIDERS: PCP Family Medicine; Visit Provider Family Medicine
DX: R31.0 Gross hematuria (principal); N20.0 Calculus of kidney; N28.1 Cyst of kidney, acquired; Z13.89 Encounter for screening for other disorder
CPT/HCPCS: 74178; 82565; J3490

== ENCOUNTER → 2020-11-11 14:59 | Outpatient (BNVA) | payer MEDICARE, SELFPAY | PROVIDERS: PCP Family Medicine; Referring Provider Family Medicine; Visit Provider Nurse Practitioner Gerontology | DX: R31.0 Gross hematuria (principal) | CPT/HCPCS: 81003; 99214 ==

== ENCOUNTER 2020-11-16 13:53 | Outpatient (REF) | payer MEDICARE, SELFPAY | END 2020-11-16 13:54 | disposition home or self-care (01) | LOC: LBN 13:53 | PROVIDERS: PCP Family Medicine; Visit Provider Urology | DX: R39.9 Unspecified symptoms and signs involving the genitourinary system (principal) | CPT/HCPCS: 87077; 87086; 87186 ==

== ENCOUNTER 2021-01-14 17:34 | Emergency (ER) | payer MEDICARE, SELFPAY ==
[2021-01-14] VITALS (14 sets, daily range): BP systolic 122–145; BP diastolic 61–71; PULSE 80–98; RESP 9–24; TEMP 37.4; O2SAT 93–96
--- NOTE | 2021-01-14 17:30 | RT.EKG_ITS ---
APPROVED REPORT Exam: Resting ECG Reason for Exam: fever Patient Location: E HR:81 bpm ECG Measurements Heart Rate 81 AXIS IL 157 P 6 QRSd 144 QRS -12 QT 420 T 114 QTc 488 Conclusion Sinus rhythm...normal P axis, V-rate 60- 99 Left bundle branch block...QRSd>120, broad/notched R
--- OUTSIDE RECORDS SUMMARY | 2021-01-14 17:42 | XMS_ITS ---
:1960 Author Care Team Providers Name Role Phone YAZAN REES MD ([facility]) Primary Care Provider [phone] [facility] MEDICAL RECORDS Primary Care Provider [phone] Allergies Code Code System Name Reaction Severity Status Onset 756 RxNorm Anafranil ? ? Active ? 141435 RxNorm Augmentin ? ? Active ? 375405 RxNorm Bactrim ? ? Active ? 6130 RxNorm Ketamine ? ? Active ? 6387 RxNorm Lidocaine ? ? Active ? 070186 RxNorm Macrobid ? ? Active ? Medications Name Status Start Date Stop Date ? ? acyclovir 5 % topical cream Active ? Not available APPLY TO THE AFFECTED AREA(S) BY TOPICAL ROUTE 6 TIMES PER DAY amitriptyline 25 mg tablet Completed ? 01/01 Take 1 tablet every day by oral route. amitriptyline 50 mg tablet Active ? Not a vailable Take 1 tablet every day by oral route. aspirin Completed ? 08/15/2018 325mg- 0.5 tab daily aspirin 81 mg capsule,delayed release Active ? Not available Take 1 capsule every day by oral route. atorvastatin 20 mg tablet Active ? Not av ailable Take 1 tablet every day by oral route. calcium Completed ? 04/11/2018 daily carvedilol Completed ? 01/02/2020 3.125mg BID carvedilol 25 mg tablet Active ? Not avai lable Take 1 tablet twice a day by oral route. Cipro Completed ? 11/26/2018 BID furosemide Completed ? 08/15/2018 40mg daily gabapentin Completed ? 01/02/2020 900 mg TID gabapentin 600 mg tablet Active ? Not agustín ilable Take 1 tablet 3 times a day by oral route. glipizide-metformin Active ? Not availabl e 500mg, 2 tabs BID hydrocodone-acetaminophen Active ? Not av ailable 5/325mg- 1-2 tab daily PRN ibuprofen Active ? Not available PRN Imodium Active ? Not available PRN Incruse Ellipta Active ? Not available 1 puff daily Januvia Completed ? 11/26/2018 100mg daily levalbuterol tartrate Active ? Not availa ble 1 puff daily PRN lisinopril Active ? Not available 5mg daily loratadine Active ? Not available 10mg PRN lorazepam Completed ? 04/11/2018 0.5mg- 1 tab BID/TID PRN magnesium Completed ? 01/02/2020 2- 400mg BID metformin Completed ? 04/11/2018 500mg- 2 tabs daily multivitamin Completed ? 11/26/2018 daily nitroglycerin 0.4 mg sublingual tablet Active ? Not available Place 1 tablet by sublingual route. NyQuil Completed ? 08/15/2018 PRN paroxetine 40 mg tablet Completed ? 04/11/20 18 Take 1 tablet every day by oral route. potassium Completed ? 08/15/2018 10mg daily Probiotic Active ? Not available simvastatin 20 mg tablet Completed ? 019 Take 1 tablet every day by oral route at bedtime. spironolactone Active ? Not available 25mg daily Trulicity Active ? Not available 1.75 weekly Tylenol Active ? Not available PRN Unisom (diphenhydramine) Active ? Not agustín ilable PRN varenicline 1 mg tablet Completed ? 04/11/20 18 Take 1 tablet twice a day by oral route. Voltaren 1 % topical gel Active ? Not agustín ilable APPLY 2 GRAM TO THE AFFECTED AREA(S) BY TOPICAL ROUTE 4 TIMES P ER DAY zolpidem 5 mg tablet Completed ? 11/26/2018 take 1-2 PO night of sleep study Problems Name Status Onset Date Source ? Herpes Simplex Active 04/09/2018 ? Sarcoidosis Active 04/09/2018 ? Diabetes Mellitus Active 04/09/2018 ? Obesity Active 04/09/2018 ? Obsessive-compulsive Disorder Active 04/09/2018 ? Depressive Disorder Active 04/09/2018 ? Genuine Stress Incontinence Active 04/09/2018 ? Osteoma Active 04/09/2018 ? Sleep Related Bruxism Active 04/11/2018 ? Periodic Leg Movements of Sleep Active 04/11/2018 ? Psychophysiologic Insomnia Active 01/01/2020 ? Obstructive Sleep Apnea Syndrome Active ? ? Procedures Date Name Performed by ? 04/11/2018 Polysomnogram [facility] [address] [place] [address] (Work Place) Results Lab Results None recorded. Past Encounters 01/01/2020 Obstructive Sleep Apnea Syndrome; Psycho physiologic Insomnia Maira Herrera NP: [address] [place] [phone], Ph. Social History Tobacco Smoking Status Former Smoker Notes: quit 2 years ago Vaccine List None recorded. Plan of Care Reminders Provider Appointments None ? ? recorded. Lab None ? ? recorded. Referral None ? ? recorded. Procedures None ? ? recorded. Surgeries None ? ? recorded. Imaging None ? ? recorded. Vitals 01/01/2020 03:30PM Office 30 Height Weight BMI Blood Pressure 167.64 cm 139.43 kg 49.6 kg/m2 138/88 mm[Hg] 11/26/2018 09:15AM Office 30 Height Weight BMI Blood Pressure 167.64 cm 135.26 kg 48.1 kg/m2 122/78 mm[Hg] 08/15/2018 11:30AM Office 30 Height Weight BMI Blood Pressure 167.64 cm 139.98 kg 49.8 kg/m2 120/68 mm[Hg] 04/11/2018 12:45PM New Patient 45 Height Weight BMI Blood Pressure 167.64 cm 143.97 kg 51.2 kg/m2 108/78 mm[Hg]
--- NOTE | 2021-01-14 17:52 | ED.GENADUL_ITS ---
Discharge Plan Disposition Patient Disposition: HOME Condition: Stable Discharge Details Clinical Impression: Diarrhea, UTI (urinary tract infection) Primary Care Provider: Albert Zuleta ED Provider: Zenia Jaeger Home Meds and New Rx's Prescriptions: New cephalexin 500 mg tablet 500 mg PO BID 7 Days Qty: 14 RF: 0 No Action cholestyramine (with sugar) 4 gram powder 4 gm PO BID RF: 0 clotrimazole-betamethasone 1-0.05 % cream 1 applic topical BID 10 Days Qty: 15 RF: 2 multivitamin Tablet 1 tab PO DAILY RF: 0 Basaglar KwikPen U-100 Insulin 100 unit/mL (3 mL) insulin pen 24 unit subcut QAM RF: 0 spironolactone 25 mg tablet 25 mg PO DAILY RF: 0 atorvastatin 10 mg tablet 10 mg PO DAILY RF: 0 acetaminophen [Tylenol Extra Strength] 500 mg tablet 500 mg PO Q6H PRNRF: 0 ibuprofen 200 mg tablet 200 mg PO QID PRNRF: 0 acyclovir 5 % cream 1 applic TP ONCE PRNRF: 0 diclofenac sodium [Voltaren] 1 % gel 2 gm TP QID PRNRF: 0 levalbuterol tartrate 45 mcg/actuation HFA aerosol inhaler 2 inh IH Q6H RF: 0 Incruse Ellipta 62.5 mcg/actuation blister with device 1 inh IH DAILY RF: 0 amitriptyline 25 mg tablet 50 mg PO DAILY RF: 0 nitroglycerin 0.4 MG tablet, sublingual 0.4 mg Sublingual PRN RF: 0 insulin aspart U-100 [Novolog Flexpen U-100 Insulin] 100 unit/mL (3 mL) insulin pen 15 unit subcut TID RF: 0 Basaglar KwikPen U-100 Insulin 100 unit/mL (3 mL) insulin pen 64 unit subcut QPM RF: 0 Lactobacillus acidophilus Tablet,Chewable 1 tab PO DAILY RF: 0 gabapentin 600 mg tablet 600 mg PO QID RF: 0 Trulicity 1.5 mg/0.5 mL pen injector 1.5 mg subcut QWEEK RF: 0 valacyclovir 1 gram tablet 1,000 mg PO DAILY RF: 0 Incruse Ellipta 62.5 mcg/actuation blister with device 1 inh inhalation DAILY RF: 0 metformin 500 mg tablet 1,000 mg PO TID RF: 0 hydrocodone-acetaminophen 7.5-325 mg tablet 1 tab PO Q6H PRNRF: 0 albuterol sulfate [ProAir HFA] 8.5 GM HFA aerosol inhaler 2 puff Inhalation QID PRN (Reason: Shortness Of Breath) RF: 0 Spiriva with HandiHaler 30 CAP capsule, w/inhalation device 1 cap Inhalation DAILY RF: 0 loratadine 10 mg Tablet 10 mg PO DAILY RF: 0 aspirin [Aspirin Childrens] 81 mg Tablet,Chewable 81 mg PO DAILY RF: 0 lisinopril 5 mg Tablet 5 mg PO DAILY RF: 0 Trulicity 1.5 mg/0.5 mL Pen Injector 1.75 mg subcut DIRECTED RF: 0 carvedilol 3.125 mg tablet 12.5 mg PO BID RF: 0 Discharge Instructions Instructions: Urinary Tract Infection in Women (ED), Acute Diarrhea (ED) Additional Instructions: Follow up with primary care provider in 3-5 days. Return to ED sooner if any worsening or concerns. Increase oral fluids. Please take Tylenol or Ibuprofen with food every 4-6 hours as needed for pain and swelling. Drink electrolyte oral liquids while having diarrhea. Take your normal medications as prescribed. You were given the first dose of antibiotic here in the department tonight you may start the antibiotic tomorrow. Referrals: Albert Zuleta [Primary Care Provider] - Medical Decision Making 60-year-old female with a past medical history of insulin-dependent diabetes, hypertension, cardiomyopathy, cirrhosis, CHF, OCD, PTSD, sarcoidosis, renal insufficiency morbid obesity, recurrent UTI, presents to the ER with chief complaint of fever T-max 102.8 diaphoresis and diarrhea. She reports not taking any your diabetes medications today, decreased urine output, and decreased oral intake. Denies chest pain, shortness of breath no abdominal pain. Denies any other associated symptoms. She did take 1 g Tylenol approximately 2 PM prior to arrival. Work-up ordered including a CBC, CMP, blood cultures x2, lactate, COVID-19 swab, chest x-ray, urinalysis. CBC shows WBC count of 17.16 absolute neutrophils 12.94 Urinalysis in and out catheter specimen positive for trace protein, trace blood large leukocytes greater than 50 WBCs. Few yeast few epithelial cells. Imaging protocol: XR of the chest. Views: 1 view. COMPARISON: CR XR CHEST 2V PA LATERAL 02/19/2019 6:10 PM FINDINGS: Lungs: No mass. No consolidation. Pleural spaces: Unremarkable. No pleural effusion. No pneumothorax. Heart/Mediastinum: Unremarkable cardiomediastinal silhouette. No cardiomegaly. Bones/joints: Unremarkable. IMPRESSION: No evidence for acute cardiopulmonary disease. Thank you for allowing us to participate in the care of your patient. Dictated and Authenticated by: Ted Patiño MD Discussed option of admission with patient who declined at this time. She states she rather go home on antibiotics for UTI and follow-up with PCP and/or return if worse. Patient given 1 g of ceftriaxone here in department prior to discharge. We will send patient home with cephalexin to go, place patient on prescription for 7 days of cephalexin 5 mg twice daily. Outpatient stool sample ordered, instructed to follow-up with PCP in 3 to 5 days. Discussed return instructions, verbalized understanding HPI General Mode of arrival: wheelchair . Date/Time Provider Initiated Documentation: 01/14/21 17:40 . Limitations to Documentation: no limitations . Information obtained by: patient, RN notes reviewed and old records reviewed . HPI Narrative: 60-year-old female with a past medical history of insulin- dependent diabetes, hypertension, cardiomyopathy, cirrhosis, CHF, OCD, PTSD, sarcoidosis, renal insufficiency morbid obesity, recurrent UTI, presents to the ER with chief complaint of fever T-max 102.8 diaphoresis and diarrhea. She reports not taking any your diabetes medications today, decreased urine output, and decreased oral intake. Denies chest pain, shortness of breath no abdominal pain. Denies any other associated symptoms. She did take 1 g Tylenol approximately 2 PM prior to arrival. Related Data Home Medications Medication Instructions Recorded Confirmed nitroglycerin 0.4 mg SUBLINGUAL PRN 11/07/12 11/11/20 Spiriva with HandiHaler 1 cap INHALATION DAILY 02/03/13 11/11/20 albuterol sulfate [ProAir HFA] 2 puff INHALATION QID PRN 02/03/13 11/11/20 spironolactone 25 mg tablet 25 mg PO DAILY 05/28/18 11/11/20 loratadine 10 mg PO DAILY 07/09/18 11/11/20 Trulicity 1.75 mg SUBCUT DIRECTED 07/22/18 11/11/20 aspirin [Aspirin Childrens] 81 mg PO DAILY 07/22/18 11/11/20 lisinopril 5 mg PO DAILY 07/22/18 11/11/20 acetaminophen 500 mg tablet 500 mg PO Q6H PRN 12/19/18 11/11/20 acyclovir 5 % topical cream 1 applic TP ONCE PRN 12/19/18 11/11/20 atorvastatin 10 mg tablet 10 mg PO DAILY 12/19/18 11/11/20 diclofenac sodium 1 % topical gel 2 gm TP QID PRN 12/19/18 11/11/20 ibuprofen 200 mg tablet 200 mg PO QID PRN 12/19/18 11/11/20 levalbuterol tartrate 45 2 inh IH Q6H 12/19/18 11/11/20 mcg/actuation aerosol inhaler umeclidinium 62.5 mcg/actuation 1 inh IH DAILY 12/19/18 11/11/20 blister powder for inhalation cholestyramine (with sugar) 4 gram 4 gm PO BID 04/14/19 11/11/20 oral powder amitriptyline 25 mg tablet 50 mg PO DAILY tab 01/16/20 11/11/20 carvedilol 3.125 mg tablet 12.5 mg PO BID tab 04/16/20 11/11/20 Lactobacillus acidophilus 1 tab PO DAILY 10/13/20 11/11/20 dulaglutide 1.5 mg/0.5 mL 1.5 mg SUBCUT QWEEK 10/13/20 11/11/20 subcutaneous pen injector gabapentin 600 mg tablet 600 mg PO QID tab 10/13/20 11/11/20 hydrocodone 7.5 mg-acetaminophen 1 tab PO Q6H PRN 10/13/20 11/11/20 325 mg tablet insulin aspart U-100 100 unit/mL 15 unit SUBCUT TID 10/13/20 11/11/20 (3 mL) subcutaneous pen insulin glargine 100 unit/mL (3 64 unit SUBCUT QPM ml 10/13/20 11/11/20 mL) subcutaneous pen metformin 500 mg tablet 1,000 mg PO TID tab 10/13/20 11/11/20 umeclidinium 62.5 mcg/actuation 1 inh INHALATION DAILY 10/13/20 11/11/20 blister powder for inhalation valacyclovir 1 gram tablet 1,000 mg PO DAILY 10/13/20 11/11/20 clotrimazole-betamethasone 1 1 applic TOPICAL BID 10 Days #15 g 11/16/20 %-0.05 % topical cream insulin glargine 100 unit/mL (3 24 unit SUBCUT QAM ml 11/16/20 mL) subcutaneous pen multivitamin 1 tab PO DAILY 11/16/20 cephalexin 500 mg PO BID 7 Days #14 tab 01/14/21 Previous Rx's Medication Instructions Recorded clotrimazole-betamethasone 1 1 applic TOPICAL BID 10 Days #15 g 11/16/20 %-0.05 % topical cream cephalexin 500 mg PO BID 7 Days #14 tab 01/14/21 Allergies Allergy/AdvReac Type Severity Reaction Status Date / Time erythromycin base Allergy Severe hives Verified 11/16/20 12:57 Sulfa (Sulfonamide Allergy Severe hives Verified 11/16/20 12:57 Antibiotics) sulfamethoxazole Allergy Verified 11/16/20 12:57 [From Bactrim] trimethoprim [From Bactrim] Allergy Verified 11/16/20 12:57 magnesium AdvReac Severe Diarrhea Verified 11/16/20 12:57 nitrofurantoin AdvReac Severe depression Verified 11/16/20 12:57 [From Macrobid] clomipramine [From Anafranil] AdvReac Intermediate Other (See Verified 11/16/20 12:57 Comment) ketamine AdvReac Intermediate hallucinati Verified 11/16/20 12:57 ons General GROVER: 2 Review of Systems Narrative: Constitutional: Negative for weight loss, alert and oriented, well g roomed, obese body habitus, appears sickly, diaphoretic. Reports fever, chills T-max 102.8. HEENT: Denies trauma, headaches, blurry vision, nasal discharge, sore throat, trouble swallowing. Chest: Denies chest pain, palpitations, irregular rhythm, hypertension. Respiratory: Denies Shortness of breath, cough, hemoptysis. GI: Denies abdominal pain, nausea, vomiting, constipation. Positive diarrhea reports approximately 15 loose stools last night. None today. : Denies dysuria, hematuria, flank pain, rectal bleeding. Does have a history of chronic cystitis. Neuro: Denies dizziness, blurry vision, syncope, headache or facial numbness. Positive generalized weakness. No focal neuro deficits Hematologic: Denies easy bruising, intolerance to heat or cold, hair loss. [facility] Medical History Acute stress disorder Anemia Anxiety Breast pain, left 09/2019. Physical exam unremarkable. No additional testing ordered. Cardiomyopathy Chronic leg pain Chronic pain Cirrhosis of liver Congenital ureterovesical obstruction Congestive heart failure Cystocele (04/13/15) Degenerative joint disease Depression Diabetes Diabetes mellitus Diarrhea Essential hypertension Flank pain Former smoker quit smoking 07/23/16 Gross hematuria Hematuria Herpes simplex Hydronephrosis Hyperglycemia Hyperparathyroidism Hypertension Hypomagnesemia Incarcerated incisional hernia Incisional hernia Kidney stone Lactic acid acidosis Leukocytosis (leucocytosis) Morbid obesity Neuropathy Obsessive compulsive disorder Obstructive nephropathy Osteoarthritis of knee (07/21/13) Osteoma Other chromoabnormalities of urine Plantar fasciitis Primary osteoarthritis of both knees (07/26/15) PTSD (post-traumatic stress disorder) Recurrent UTI Renal insufficiency Sarcoidosis Sleep apnea Thyroid nodule Urinary incontinence Urinary incontinence, mixed Vaginal wall prolapse Vaginitis Surgical History Abdominal hysterectomy Cholecystectomy Fracture, Open Treatment Lithotripsy Oophrectomy, Both Open Carpal Tunnel release Tonsillectomy and adenoidectomy Family History Mother Diabetes Heart disease Father Personal history of malignant neoplasm Lung Cancer Sister Personal history of malignant neoplasm Thyroid Cancer Social History Smoking/Tobacco Use Status: Former Tobacco Use Smoking risk assessment performed?: Yes Alcohol Intake: never Drug use: Occasionally Substance use type: marijuana Do you feel safe at home: Yes Do you feel safe in your relationship?: Yes Exam Narrative Exam Narrative: Constitutional: Alert and oriented x3. Appears stated age. Obese body habitus. Diaphoretic, appears sickly, pale. Head: Normocephalic, no trauma. Eyes: Pupils PERRLA, Red reflex noted, EOM's intact. Eyelids symmetrical without lesions, discharge, or swelling. ENT: Bilateral TM's WNL, External ear normal to inspection, no mastoid TTP, swelling, or erythema, Nasal turbinates WNL, no nasal discharge. Normal dentition, Posterior pharynx WNL, no exudate. Chest: RRR, Normal S1, S2, distal pulses intact. Resp: Lungs clear to auscultation bilaterally, no wheezes, rales, or rhonchi. Abdomen: Soft, nondistended nontender to palpation. Abdominal exam limited by patient's girth. Musculoskeletal: Unable to assess gait. 5/5 strength to all four extremities. No pitting edema noted bilateral lower extremities no redness no swelling. Skin: No suspicious rashes or lesions. Capillary refill less than 2 sec. Neurologic: Cranial nerves II-XII intact. Alert and oriented x 3. DTR's intact. Hematologic/Lymphatic: No ecchymosis, no lymphadenopathy. Course Lab/Test Results Lab/Test Results: 01/14/21 17:40 Blood Blood Culture - Pending 01/14/21 17:40 Blood Blood Culture - Pending
[2021-01-14 18:09] LABS: Abs Immature Grans 0.09 10^3/uL (0.0-0.06); Absolute Basophil Count 0.03 10^3/uL (0.0-0.2); Absolute Eosinophil Count 0.09 10^3/uL (0.0-0.7); Absolute Lymphocyte Count 3.21 10^3/uL (1.2-3.4); Absolute Monocyte Count 0.81 10^3/uL (0.1-0.8); Absolute Neutrophil Count 12.94 10^3/uL (1.2-6.7); Basophils % 0.2; Eosinophils % 0.5; HCT 36.7 % (36.0-46.0); HGB 11.9 g/dL (11.2-15.7); Immature Grans % 0.5; Lymphocytes % 18.7; MCH 31.1 pg (27.0-33.0); MCHC 32.4 % (32.0-36.0); MCV 95.8 fL (80-95); MPV 10.1 fL (8.0-11.0); Monocytes % 4.7; Neutrophils % 75.4; Nucleated RBC 0 %; Platelet Count 194 10^3/uL (130-400); RBC 3.83 10^6/uL (3.93-5.22); RDW 13.1 % (11.7-14.6); RDW-SD 45.8 fL; WBC 17.16 10^3/uL (4.4-10.8)
[2021-01-14 18:34] LABS: Bilirubin Negative (Negative); Blood Trace-intact (Negative); Clarity Cloudy (Clear); Glucose Negative (Negative); Ketones Negative (Negative); Leukocyte Esterase Large (Negative); Nitrite Negative (Negative); Urobilinogen 0.2 EU/dL (Up TO 0.2)
--- NOTE | 2021-01-14 18:39 | DI.RAD_ITS ---
Exam(s) XR PORTABLE CHEST AP EXAM: XR PORTABLE CHEST AP CLINICAL HISTORY: Fever, R/O Pneumonia. TECHNIQUE: 2D digital imaging was performed. COMPARISON: CR XR CHEST 2V PA LATERAL from 02/19/2019 FINDINGS: Heart size is normal. The mediastinum is not widened. Left lung is clear. Mild increased markings consistent with scarring noted in the right lung base. No pleural effusions. No pulmonary edema. IMPRESSION: No acute pulmonary findings on this single AP portable view of the chest. Scarring right lung base. DATA REPOSITORY: RADIATION DOSE DELIVERED: All CT scans at this facility use at least one of these dose optimization techniques: automated exposure control; mA and/or kV adjustment per patient size (includes targeted e xams where dose is matched to clinical indication); or iterative reconstruction.
[2021-01-14 18:43] LABS: WBC >50 HPF (0-5)
[2021-01-14 18:44] LABS: Bacteria Few HPF (Negative); C & S Indicated? Yes; Epithelial Cells Few HPF (Negative); Other Cells Few Yeast (Negative)
[2021-01-14] MEDS: Normal Saline 1,000 ML 1000 ML IV (18:57)
--- NOTE | 2021-01-14 19:01 | DI.VRAD_ITS ---
PROCEDURE INFORMATION: Exam: XR Chest Exam date and time: 01/14/2021 5:44 PM Age: 60 years old Clinical indication: Patient HX: Fever, R/O pneumonia TECHNIQUE: Imaging protocol: XR of the chest. Views: 1 view. COMPARISON: CR XR CHEST 2V PA LATERAL 02/19/2019 6:10 PM FINDINGS: Lungs: No mass. No consolidation. Pleural spaces: Unremarkable. No pleural effusion. No pneumothorax. Heart/Mediastinum: Unremarkable cardiomediastinal silhouette. No cardiomegaly. Bones/joints: Unremarkable. IMPRESSION: No evidence for acute cardiopulmonary disease. Dictated and Authenticated by: Ted Patiño MD. Ordering:OLIVIA Knutson MD
[2021-01-14] MEDS: cefTRIAXone 1 GM/50 ML BAG IVPB (19:20)
[2021-01-14 19:22] LABS: COVID-19 PCR Negative (Negative)
[2021-01-14 19:28] LABS: ALT 45 U/L (14-59); AST 52 U/L (15-37); Albumin 3.6 g/dL (3.4-5.0); Alkaline Phosphatase 86 U/L (46-116); Anion Gap 13.8 mmol/L (3-11); BUN 11 mg/dL (7-18); Bilirubin, Total 1.7 mg/dL (0.2-1.0); CO2 22.2 mmol/L (21.0-32.0); CREATININE 0.9 mg/dL (0.55-1.02); Calcium 8.8 mg/dL (8.5-10.1); Chloride 103 mmol/L (98-107); Glucose 202 mg/dL (74-106); Magnesium 1.2 mg/dL (1.8-2.4); Potassium 3.8 mmol/L (3.5-5.1); Sodium 139 mmol/L (136-145); Total Protein 7.9 g/dL (6.4-8.2); Troponin I < 0.05 ng/mL (<0.06)
== END 2021-01-14 20:35 | disposition home or self-care (01) ==
PROVIDERS: Emergency Provider Registered Nurse Emergency; PCP Family Medicine
DX: R19.7 Diarrhea, unspecified (principal); N39.0 Urinary tract infection, site not specified
CPT/HCPCS: 36415; 80053; 87040; 87635; 93005; 96361; 96365; 99284; 71045; 81003; 81015; 83735; 84484; 85025; 87086; 93010; 99283; J0696

== ENCOUNTER → 2021-01-17 13:34 | Outpatient (BNVA) | payer MEDICARE, SELFPAY | PROVIDERS: PCP Family Medicine; Visit Provider Student in an Organized Health Care Education/Training Program | DX: M17.12 Unilateral primary osteoarthritis, left knee (principal); M17.11 Unilateral primary osteoarthritis, right knee | CPT/HCPCS: 20610; J7325 ==

== ENCOUNTER → 2021-02-07 13:18 | Outpatient (BNVA) | payer MEDICARE, SELFPAY | PROVIDERS: PCP Family Medicine; Referring Provider Family Medicine; Visit Provider Physician Assistant | DX: M75.81 Other shoulder lesions, right shoulder (principal) | CPT/HCPCS: 20610; J1040 ==

== ENCOUNTER 2021-08-19 15:50 | Outpatient (REF) | payer MEDICARE, SELFPAY | END 2021-08-19 15:51 | disposition home or self-care (01) | LOC: LBN 15:50 | PROVIDERS: PCP Family Medicine; Visit Provider Urology | DX: R31.0 Gross hematuria (principal) | CPT/HCPCS: 87077; 87086; 87186 ==

== ENCOUNTER 2021-09-06 18:25 | Outpatient (REF) | payer MEDICARE, SELFPAY | END 2021-09-06 18:26 | disposition home or self-care (01) | LOC: LBN 18:25 | PROVIDERS: PCP Family Medicine; Visit Provider Urology | DX: R31.0 Gross hematuria (principal) | CPT/HCPCS: 87086 ==

== ENCOUNTER 2021-09-09 16:30 | Outpatient (REF) | payer MEDICARE, SELFPAY ==
[2021-09-09 21:18] LABS: COMMENT (LAB VIEW ONLY) 81.63 mg/dL; PROTEIN 78.5 mg/dL; Prot/Crea Ur Ratio 0.96
== END 2021-09-09 16:31 | disposition home or self-care (01) ==
LOC: NCHCN 16:30
PROVIDERS: PCP Family Medicine; Visit Provider Family Medicine
DX: E11.9 Type 2 diabetes mellitus without complications (principal)
CPT/HCPCS: 82565; 84156

== ENCOUNTER 2021-09-21 00:49 | Outpatient (CLI) | payer MEDICARE, SELFPAY ==
--- NOTE | 2021-09-21 | DI.CT_ITS ---
Exam(s) CT ABDOMEN PELVIS WO EXAM: CT ABDOMEN PELVIS WO INDICATION: HX NEPHROLITHIASIS Z87.442. COMPARISON: CT CT ABDOMEN PELVIS WO/W from 10/18/2020 TECHNIQUE: CT examination was performed without contrast administration. FINDINGS: Images obtained through the lung bases are unremarkable. The liver is enlarged and has a nodular co ntour, the appearance is suspicious for cirrhosis. There is a prior cholecystectomy. There is no ev ident biliary dilatation. There is mild splenomegaly. Mild tortuosity upper abdominal veins may ind icate portal venous hypertension, please correlate clinically.. Visualized portions of the pancreas are unremarkable. Gallbladder and bile ducts are CT normal. Abdominal aorta is of normal diameter. There is ventral hernia, widely patent, of the lower abdominal wall. This contains the distal small bowel and proximal colon. There is an apparent prior anastomosis which lies within hernia sac. Ther e is no evidence of obstruction. No other focal bowel pathology identified. No significant abdominal or pelvic adenopathy. Adrenals appear normal bilaterally. There is no evident hydronephrosis. Kidneys are grossly normal in size and shape. There is an appro ximately 1 cm in diameter calculus of the lower pole of the left kidney. There are multiple right re nal calculi, the largest measuring about 1 cm in diameter. No right or left hydronephrosis or hydrou reter. Urinary bladder is empty.. No ureteral dilatation or calcification identified. Urinary bladder is unremarkable in appearance. IMPRESSION: Bilateral nonobstructing nephrolithiasis. Findings suggesting hepatic cirrhosis and portal hypertension. RADIATION DOSE DELIVERED: 1,882.76mGy.cm DLP 1,882.76mGy.cm Total DLP !Error CTDIvol RADIATION OPTIMIZATION: All CT scans at this facility use at least one of these dose optimization te chniques: automated exposure control; mA and/or kV adjustment per patient size (includes targeted exa ms where dose is matched to clinical indication); or iterative reconstruction.
== END 2021-09-21 01:09 ==
PROVIDERS: PCP Family Medicine; Visit Provider Urology
DX: Z87.442 Personal history of urinary calculi (principal); N20.0 Calculus of kidney
CPT/HCPCS: 74176

== ENCOUNTER 2021-10-20 14:37 | Outpatient (REF) | payer MEDICARE, SELFPAY ==
[2021-10-20 16:20] LABS: Bilirubin Negative (Negative); Blood Large (Negative); Clarity Clear (Clear); Glucose Negative (Negative); Ketones Negative (Negative); Leukocyte Esterase Moderate (Negative); Nitrite Negative (Negative); Urobilinogen 0.2 EU/dL (Up TO 0.2)
[2021-10-20 16:30] LABS: Bacteria Moderate HPF (Negative); Epithelial Cells Few HPF (Negative); WBC >50 HPF (0-5)
[2021-10-20 16:31] LABS: C & S Indicated? Yes; Casts Negative LPF (Negative); Crystals Negative HPF (Negative); Mucus Negative (Negative)
== END 2021-10-20 14:38 | disposition home or self-care (01) ==
LOC: LBN 14:37
PROVIDERS: PCP Family Medicine; Visit Provider Urology
DX: R31.0 Gross hematuria (principal)
CPT/HCPCS: 87077; 81003; 81015; 87086; 87186

== ENCOUNTER → 2021-11-07 00:59 | Outpatient (CLI) | payer MEDICARE, SELFPAY ==
--- NOTE | 2021-11-07 11:00 | DI.NM_ITS ---
APPROVED REPORT Exam: Exercise Treadmill Patient Location: Out-Patient Room/Bed: Stress Nurse: Cindi Phillips RN Ordering Provider:WALI FISHMAN, Contact Number: [phone] BMI: 51.32 Baseline Rhythm: Sinus Rhythm, LBBB Indications: Coronary artery disease Medical History Medical History: CHF, hypertension, hyperlipidemia, diabetes, COPD, asthma, obesity, anxiety, depress ion, OCD, sarcoidosis Cardiac Medications: Spironolactone, nitroglycerin SL, metformoin, lisinopril, insulin glargine, insu line aspart, cholestyramine, carvediolol, atorvastatin, trulicity, albuterol sulfate, spiriva, levalb ueterol tartrate Allergies: Trimethoprim, magnesium, erythromycin, sulfa, nitrofurantoin, clomipramine, ketamine Cardiac Risk Factors: Hypertension, hyperlipidemia, diabetes, asthma, smoker (former), obesity, COPD, family hx Previous Cardiac Procedures: PCI 2018 Pretest Chest Pain Characteristics: None Exercise History: Sedentary Physical Disabilities: Arthritis and balance issues Lung Sounds: Diminished bilateral lower lobes Heart Sounds: Regular Stress Test Details Test: Pharmacologic stress was paired with low level exercise. Reason for pharmacologic stress test: physical limitation. Nuclear Acquisition: Rest Tc-99m/Stress Tc-99m 1 day Rest Isotope: Tc-99m Sestamibi. Dose: 14.4 Date: 11/07/2021 Injection Time: 1130 Stress Isotope: Tc-99m Sestamibi. Dose: 45.0 Date: 11/07/2021 Injection Time: 1325 HR Resting HR Supine: 76 bpm Max Heart Rate (APMHR): 159 bpm Resting HR Standin bpm Target HR (85% APMHR): 135 bpm Max HR Achieved: 105 bpm % of APMHR: 66 Recovery HR: 77 bpm BP Resting BP Supine: 122/70 mmHg Resting BP Standin/82 mmHg Max BP: 132/84 mmHg Recovery BP: 118/68 mmHg ECG Resting ECG: Sinus Rhythm, LBBB, Sinus Bradycardia Ectopy: None Stress ECG: Sinus Tachycardia, LBBB ST Change: Nondiagnostic LBBB and low heart rate Arrhythmia: None Recovery ECG: Sinus Rhythm, LBBB Recovery ST Change: Nondiagnostic LBBB and low heart rate Recovery Arrhythmia: None Clinical Stress Symptoms: Dyspnea, General Fatigue Exercise capacity: 1.23 METs Rate Pressure Product: 16855 Stress ECG Conclusion 1. Resting electrocardiogram showed left bundle branch block 2. Patient underwent pharmacologic stress with regadenoson, coupled with low-level exercise 3. Peak heart rate achieved was 66% of predicted for age 4. The electrocardiographic portion of the test was nondiagnostic due to inadequate heart rate and re sting left bundle branch block 5. See MPI report Stress Test Summary STAGE HR BP Symptoms NOTES Supine 76 122/70 SpO2 90% 1 min post Lexiscan injection 99 132/84 SpO2 88% Mild SOB 3 min post Lexiscan injection 85 128/72 SpO2 96% SOB resolved 6 min post Lexiscan injection 77 118/68 SpO2 96% Pharmacologic stress was paired with low level exercise due to physical limitation. Patient walked at 0.1- 0.3 mph and 0% grade with Lexiscan administartion. Tolerated low level exercise and pharmacolog ic stress well. MPI Conclusion Myocardial perfusion shows no evidence of ischemia or prior infarction EF 41%, mild global hypokinesis LV appears mildly dilated Radiologist Interpretation Radiologist agrees with Billboard Mechanic's Interpretation. Radiologist Interpretation by: Gina York MD Interpretation Date/Time: 11/07/2021 15:50:01
[2021-11-07] MEDS: Regadenoson 0.4 MG/5 ML SYR IVP (13:44)
== END ==
PROVIDERS: PCP Family Medicine; Visit Provider Family Medicine
DX: I25.10 Atherosclerotic heart disease of native coronary artery without angina pectoris (principal); I11.0 Hypertensive heart disease with heart failure; I50.9 Heart failure, unspecified; J44.9 Chronic obstructive pulmonary disease, unspecified; E11.9 Type 2 diabetes mellitus without complications; I45.4 Nonspecific intraventricular block
CPT/HCPCS: 78452; 93016; 93018; 93017; J2785

== ENCOUNTER → 2021-12-02 11:04 | Outpatient (BNVA) | payer MEDICARE, SELFPAY | PROVIDERS: PCP Family Medicine; Referring Provider Family Medicine; Visit Provider Physician Assistant Surgical | DX: M17.11 Unilateral primary osteoarthritis, right knee (principal); M17.12 Unilateral primary osteoarthritis, left knee | CPT/HCPCS: 20610; J7325 ==

== ENCOUNTER 2022-01-05 18:53 | Outpatient (REF) | payer MEDICARE, SELFPAY ==
--- OUTSIDE RECORDS SUMMARY | 2022-01-05 18:56 | XMS_ITS ---
:1960 Author Care Team Providers Name Role Phone [facility] MEDICAL RECORDS Primary Care Provider [phone] WALI FISHMAN MD Primary Care Provider [phone] [facility] OTHER [phone] Allergies Code Code System Name Reaction Severity Status Onset 756 RxNorm Anafranil ? ? Active ? 732404 RxNorm Augmentin ? ? Active ? 934541 RxNorm Bactrim ? ? Active ? 6130 RxNorm Ketamine ? ? Active ? 6387 RxNorm Lidocaine ? ? Active ? 495035 RxNorm Macrobid ? ? Active ? Medications [...] 1 tablet every day by oral route. Nancy Webb U-100 Insulin 100 unit/mL (3 mL) subcutaneous A ctive ? Not available Inject 35 units twice a day by subcutaneous route. calcium Completed ? 04/11/2018 daily carvedilol [...] times a day by oral route. glipizide-metformin Completed ? 04/12/2021 500mg, 2 tabs BID Hydrocodone Active ? Not available 7.5/325mg 1-2 tabs PRN hydrocodone-acetaminophen Completed ? 2020 5/325mg- 1-2 tab daily PRN ibuprofen Active [...] Completed ? 04/11/2018 500mg- 2 tabs daily metformin 1,000 mg tablet Active ? Not av ailable Take 1 tablet twice a day by oral route. multivitamin Completed ? 11/26/2018 daily nitroglycerin 0.4 mg sublingual tablet Active ? Not available Place 1 tablet by sublingual route. Novolog Flexpen U-100 Insulin Active ? No t available up tp 30-60 units a day NyQuil Completed ? 08/15/2018 PRN paroxetine 40 [...] Date Name Performed by ? 04/11/2018 Polysomnogram [facility] [address] [place] [address] (Work Place) Results Lab Results None recorded. Past Encounters 10/26/2021 Obstructive Sleep Apnea Syndrome Maira Herrera HEALTH INFORMATION MANAGEMENT DIRECTOR: [address] [place] [phone], Ph. 07/26/2021 Obstructive Sleep Apnea Syndrome Maira Herrera HEALTH INFORMATION MANAGEMENT DIRECTOR: [address] [place] [phone], Ph. 04/12/2021 Obstructive Sleep Apnea Syndrome Maira Herrera HEALTH INFORMATION MANAGEMENT DIRECTOR: [address] [place] [phone], Ph. Social History Tobacco Smoking Status Former Smoker Notes: quit 2 y ears ago Vaccine List None recorded. Plan of Care Reminders Provider Appointments None recorded. ? ? Lab None recorded. ? ? Referral None recorded. ? ? Procedures None recorded. ? ? Surgeries None recorded. ? ? Imaging None recorded. ? ? Vitals 10/26/2021 01:45PM Office 30 Height Weight BMI 167.64 cm 144.24 kg 51.3 kg/m2 04/12/2021 12:30PM Office 30 Height Weight BMI Blood Pressure 167.64 cm 147.33 kg 52.4 kg/m2 152/69 mm[Hg] 01/01/2020 03:30PM Office 30 Height Weight BMI [...]
--- OUTSIDE RECORDS SUMMARY | 2022-01-05 18:56 | XMS_ITS | Encounter Summary ---
:1960 Author Care Team Providers Name Role Phone [facility] Primary Care Provider [phone] Trev Burr MD Primary Care Provider [phone] [facility] OTHER [phone] Reason for Visit Telehealth - Video/Zoom Assessment and Plan 1. Obstructive sleep apnea syndrome MOSES with an AHI of 14.1/hr and 02 tomas 57%. This is likely an underestimation of the severity of her MOSES as she did not have REM sleep during the diagnositic study. She has been using CPAP 9-16 cm. He r compliance is mediocre (22/30 nights, 4.5 hours). Her AHI is excellent. She finds the pressure too strong and still removes it in sleep. She is aware of some air leaking (though it is very low on down load) which hopefully will improve with the lower pressure and if not I asked her to get a mask liner from [facility]. I am lowering her pressure to 6-12 cm today and I will see her back in three months. She is encouraged to keep up with the r outine maintenance of the machine and to clean and replace parts as indicated. She is asked to call the clinic for any sleep related questions or concerns. I provided greater than 30 minutes in e care of this patient, more than half the time was spent in [id number] counseling. ? CPAP supplies Discussion Note: None recorded.Patient educational handouts: No information available. Plan of Care Reminders Provider Appointments Office 02/01/2022 1:15PM Maira michelle, MASTICATOR Lab None recorded. ? ? Referral None recorded. ? ? Procedures None recorded. ? ? Surgeries None recorded. ? ? Imaging None recorded. ? ? Medications Name Start Date ? ? acyclovir 5 % topical cream ? APPLY TO THE AFFECTED AREA(S) BY TOPICAL ROUTE 6 TIME S PER DAY amitriptyline 50 mg tablet ? Take 1 tablet every day by oral route. aspirin 81 mg capsule,delayed release ? Take 1 capsule every day by oral route. atorvastatin 20 mg tablet ? Take 1 tablet every day by oral route. Basaglar KwikPen U-100 Insulin 100 unit/mL (3 mL) subc utaneous ? Inject 35 units twice a day by subcutaneous route. carvedilol 25 mg tablet ? Take 1 tablet twice a day by oral route. gabapentin 600 mg tablet ? Take 1 tablet 3 times a day by oral route. Hydrocodone ? 7.5/325mg 1-2 tabs PRN ibuprofen ? PRN Imodium ? PRN Incruse Ellipta ? 1 puff daily levalbuterol tartrate ? 1 puff daily PRN lisinopril ? 5mg daily loratadine ? 10mg PRN metformin 1,000 mg tablet ? Take 1 tablet twice a day by oral route. nitroglycerin 0.4 mg sublingual tablet ? Place 1 tablet by sublingual route. Novolog Flexpen U-100 Insulin ? up tp 30-60 units a day Probiotic ? spironolactone ? 25mg daily Trulicity ? 1.75 weekly Tylenol ? PRN Unisom (diphenhydramine) ? PRN Voltaren 1 % topical gel ? APPLY 2 GRAM TO THE AFFECTED AREA(S) BY TOPICAL ROUTE 4 TIMES PER DAY Medications Administered None recorded. Vitals Height Weight BMI 5 ft 6 in 318 lbs 51.3 kg/m2 Results Lab Results None recorded. Allergies Code Code System Name Reaction Severity Onset 756 RxNorm Anafranil ? ? ? 255411 RxNorm Augmentin ? ? ? 267471 RxNorm Bactrim ? ? ? 7330 RxNorm Ketamine ? ? ? 6323 RxNorm Lidocaine ? ? ? 640232 RxNorm Macrobid ? ? ? Problems Name Status Onset Date Source ? [...] Sleep Apnea Syndrome Active ? ? Procedures None recorded. Vaccine List None recorded. Social History Tobacco Smoking Status Former Smoker Notes: quit 2 y ears ago What is your level of alcohol None consumption? Live alone or with others? alone Live alone or with others? alone Are you currently employed? N Do you have any pets? N Are you blind or do you have difficulty Y Notes: corrective glasses seeing? Language Difficulties No Are you deaf or do you have serious N difficulty hearing? Hard of hearing or deaf in one or both N ears? What was the date of your most recent 08/15/2018 tobacco screening? What is your level of caffeine Notes: 1 cup coffee daily consumption? What is your occupation? disabled Functional Status Are you blind or do you have difficulty seeing?? Yes Past Encounters 10/26/2021 Obstructive Sleep Apnea Syndrome Maira Herrera, MASTICATOR: [address] [place] [phone], Ph. History of Present Illness Note: <p>Blossom Samayoa has a Zoom for MOSES follow-up. She has given consent to have a telehealth visit. Patient is at home, provider is in the office.</p><div>
</div><p>Blossom was last seen by me on 07/26/21. </p><p>PSG 07/09/08 (BMI 49.6), AHI 2/hr, restricted flow consistent with upper airway resistance syndrome, 02 tomas 86%, PLMi 25.7/hr, PLMai 3.5/hr. She did not start treatment at that time. </p><p>She noted symptoms of sleep fragmenta tion, daytime sleepiness (ESS 11), loud snoring, nocturia 3-4/night, and night sweats. </p><p>PSG 08/06/18 (BMI 51.16). Sleep efficiency was 42%, no REM, AHI 14.1/hr, RDI 16.8/hr, REM AHI N/A, REM RDI N/A, supine AHI N/A, right lateral AHI 14/hr, left lateral AHI N/A, sp02 tomas 57%, 31 minutes were spent at a saturation <88%, arousal index 19/hr, PLMi 0/hr, PLM arousal index 0/hr. EKG NSR. TC02 35-40 mm Hg not consistent with hypercapnia. </p><p>Titration 10/26/18 (BMI 49.8), sleep efficiency 68%, CPAP was titrated from 6 to 8 cm. CPAP 8 cm was successful in lateral REM. No supine REM seen, arousal index 9/hr, PLMi 5/hr, PLMai 0/hr, EKG NSR. CPAP 6-12 cm recommended.</p><p> Last visit she had stopped using CPAP 9-16 cm with reduced compliance (07/21 nightsfor 2 hrs 25 minutes) because she was pulling the mask off every night because it wouldn't se al and she found it very uncomfortable. I ordered a new mask fit for comfort.</p><div>Sakshi tells me she eventually had a new mask fit last month at [facility] in [place]. SHe was apparently putting the mask under her chin rather than below her lip. She now feels the mask fits better and her pressure feels too strong. She says she still sometimes removes the mask in her sleep. </div><d iv>She says since being back on CPAP she has felt much better rested. The longer she is able to keep it in the better she feels. </div><div>
</div><div>ESS today 07/15</div><div>
</div><div>COMPLIANCE DATA REVIEWED WITH PATIENT: {{DATES 09/25/21-10/24/21#}}, Used {{25 30 22#}}/30 days, average use {{5 6 4#}} hours {{number 30#}} minutesa night, median pressure {{8 9 9.6#}}cm, 95 th percentile pressure {{9 10 11.7#}}cm, 95 th percentile air leak {{5 10 6.2#}} lpm, AHI {{1 2 0.3#}}/hour.</div><div>
This visit was performed virtually using synchronous audio-visual connection via Zoom. As such, the physical examination is necessarily limited. The risks and benefits of the use of this alternative platform were discussed with the patient and or guardian and verbal consent was obtained. My assessment and plans are based on such examination. Further evaluation, including in-person examination, may be needed dependingon the response to management or today's recommendation.

The patient has been positively identified and has consented to a video visit.

</div& gt;Review of Systems: ROS as noted in the HPI Review of Systems ? Notes: <div>bruxism</div> Physical Exam ? Notes: <div>N/A</div>
--- OUTSIDE RECORDS SUMMARY | 2022-01-05 18:56 | XMS_ITS ---
:1960 Author Care Team Providers Name Role Phone DR. YAZAN REES Primary Care Provider [phone] DR. YAZAN REES Referring Provider [phone] Allergies Code Code System Name Reaction Severity Status Onset 756 RxNorm Anafranil ? ? Active ? 849929 RxNorm Augmentin ? ? Active ? 934449 RxNorm Bactrim ? ? Active ? 6130 RxNorm Ketamine ? ? Active ? 603151 RxNorm Macrobid ? ? Active ? Medications Name Status Start Date Stop Date ? ? acetaminophen 325 mg tablet Active ? Not available Take 2 tablets every 6 hours by oral route as needed. Aspir-81 mg tablet,delayed release Active ? Not available Take 1 tablet every day by oral route. aspirin 325 mg tablet Completed ? 09/25/2018 Take 1 tablet every day by oral route. atorvastatin 10 mg tablet Active ? Not av ailable Take 1 tablet every day by oral route. carvedilol 3.125 mg tablet Active ? Not a vailable Take 1 tablet twice a day by oral route. Elavil 10 mg tablet Completed ? 10/30/2017 Take 1 tablet every day by oral route at bedtime. furosemide 40 mg tablet Active ? Not avai lable Take 1 tablet every day by oral route. gabapentin 600 mg tablet Active ? Not agustín ilable Take 1 tablet 3 times a day by oral route. glipizide 5 mg-metformin 500 mg tablet Active ? Not available Take 2 tablets twice a day by oral route. hydrocodone 5 mg-acetaminophen 325 mg tablet Active ? Not available Take 1 tablet twice a day by oral route. Incruse Ellipta 62.5 mcg/actuation powder for inhalation Active ? Not available Inhale 1 puff every day by inhalation route. Januvia 100 mg tablet Active ? Not availa ble Take 1 tablet every day by oral route. levalbuterol HFA 45 mcg/actuation aerosol inhaler Active ? Not available Inhale 2 puffs every 6 hours by inhalation route as needed. lisinopril 5 mg tablet Active ? Not avail able Take 1 tablet every day by oral route. loratadine 10 mg tablet Active ? Not avai lable Take 1 tablet every day by oral route. magnesium oxide 400 mg (241.3 mg magnesium) tablet Active ? Not available Take 2 tablets every day by oral route. multivitamin Active ? Not available once daily Nitrostat 0.4 mg sublingual tablet Active ? Not available PLACE 1 TABLET (0.4 MG) BY SUBLINGUAL R OUTE EVERY 5 MINUTES NEEDEDFOR CHEST PAIN. DO NOT EXCEED 3 DOSES IN 15 MINUTES. OneTouch Delica Lancets 33 gauge Active ? Not available potassium chloride ER 10 mEq capsule,extended release Completed ? 09/25/2018 Take 1 capsule every day by oral route. potassium chloride ER 20 mEq tablet,extended release(part/cryst) Active ? Not available Take 1 tablet every day by oral route. spironolactone 100 mg tablet Completed ? 12/2018 Take 1 tablet every day by oral route. spironolactone 25 mg tablet Active ? Not available Take 1 tablet every day by oral route. Trulicity 1.5 mg/0.5 mL subcutaneous pen injector Active ? Not available Inject 0.5 mL every week by subcutaneous route. valacyclovir 1 gram tablet Active ? Not a vailable Take 4 tablets every day by oral route as needed. Voltaren 1 % topical gel Active ? Not agustín ilable APPLY 2 GRAM TO THE AFFECTED AREA(S) BY TOPICAL ROUTE 4 TIMES P ER DAY Problems Name Status Onset Date Source ? Primary Hyperparathyroidism Active 03/27/2017 ? Thyroid Nodule Active 05/01/2017 ? Herpes Simplex Active ? ? Sarcoidosis Active ? ? Diabetes Mellitus Active ? ? Hypomagnesemia Active ? ? Hypercalcemia Active ? ? Morbid Obesity Active ? ? Anemia Active ? ? Anxiety Active ? ? Obsessive-compulsive Disorder Active ? ? Depressive Disorder Active ? ? Neuropathy Active ? ? Blurring of Visual Image Active ? ? Hypertensive Disorder Active ? ? Cardiomyopathy Active ? ? Congestive Heart Failure Active ? ? Kidney Stone Active ? ? Vaginal Wall Prolapse Active ? ? Female Stress Incontinence Active ? ? Osteoarthritis Active ? ? Chronic Back Pain Active ? ? Pain in Lower Limb Active ? ? Fatigue Active ? ? Osteoma Active ? ? Notes: Degenerative joint disease of h ip Procedures Date Name Performed by ? 03/20/2017 Dexa [facility] (Radiology) [address] [place] [address] (Work Place) 04/03/2017 [place], Parathyroid Scan [facility] (Radiology) [address] [place] [address] [address] [place] [id number] (Work Place) 05/01/2017 [place], Thyroid [facility] (Radiology) [address] [place] [address] [address] [place] [id number] (Work Place) Results Lab Results Date Name Specimen Result Interpretation Description Value Range Status Address ? 10/25/2017 PTH (Parathyroid ? No observation ? ? ? [facility] Hormone), Intact, recorded. [facility] Serum or Plasma H ospital: [address] [place] [address], [place] 10/25/2017 Magnesium, Blood ? No observation ? ? ? [facility] recorded. [facility]: [address] [place] [address], [place] 10/25/2017 Phosphorus, Serum ? No observation ? ? ? [facility] or Plasma recorded. [facility]: [address] [place] [address], [place] 10/25/2017 BMP, Serum or ? No observation ? ? ? [facility] Plasma recorded. [facility]: [address] [place] [address], [place] 06/19/2017 PTH (Parathyroid ? No observation ? ? ? [facility] Hormone), Intact, recorded. [facility] Serum or Plasma H ospital: [address] [place] [address], [place] 06/19/2017 Vitamin D, ? No observation ? ? ? [facility] 25-Hydroxy + recorded. [facility] 1,25-Dihydroxy, H ospital: [address] [place] [address], [place] 06/19/2017 CMP, Serum or ? No observation ? ? ? [facility] Plasma recorded. [facility]: [address] [place] [address], [place] Past Encounters None recorded. Social History Tobacco Smoking Status Never Smoker Notes: 10/30/17 Vaccine List None recorded. Plan of Care Reminders Provider Appointments None recorded. ? ? Lab None recorded. ? ? Referral None recorded. ? ? Procedures None recorded. ? ? Surgeries None recorded. ? ? Imaging None recorded. ? ? Vitals 10/30/2017 01:30PM ENDOCRINOLOGY FOLLOW UP 30 Height Weight BMI Blood Pressure 167.64 cm 144.24 kg 51.3 kg/m2 132/76 mm[Hg] 05/01/2017 12:30PM ENDOCRINOLOGY FOLLOW UP 30 Height Weight BMI Blood Pressure 167.64 cm 137.89 kg 49.1 kg/m2 126/86 mm[Hg] 03/20/2017 11:30AM NEW PATIENT Height Weight BMI Blood Pressure 167.64 cm 137.89 kg 49.1 kg/m2 126/76 mm[Hg] 03/20/2017 10:00AM ENDOCRINOLOGY NEW PATIENT 60 Height Weight BMI Blood Pressure 167.64 cm 137.89 kg 49.1 kg/m2 126/76 mm[Hg]
--- OUTSIDE RECORDS SUMMARY | 2022-01-05 18:56 | XMS_ITS | Continuity of Care Document ---
:1960 Author Organization [facility] Address [address] [place] [address] Care Team Providers Name Role Phone YAZAN REES Primary Care Physician Encounter Date(s): 07/11/21 - 07/11/21 [facility] [address] [place] [address] us [phone] Discharge Disposition: Home or Self Care Attending Physician: JETT CORDERO Admitting Physician: JETT CORDERO Allergies, Adverse Reactions, Alerts No Known Allergies Social History Social History Type Response Sex Female
== END 2022-01-05 18:54 | disposition home or self-care (01) ==
LOC: NCHCN 18:53
PROVIDERS: PCP Family Medicine; Visit Provider Family Medicine
DX: N39.0 Urinary tract infection, site not specified (principal)
CPT/HCPCS: 87086

== ENCOUNTER 2022-02-01 16:32 | Outpatient (REF) | payer MEDICARE, SELFPAY ==
[2022-02-01 14:54] LABS: Bilirubin Negative (Negative); Blood Small (Negative); Clarity Cloudy (Clear); Glucose Negative (Negative); Ketones Negative (Negative); Leukocyte Esterase Large (Negative); Nitrite Negative (Negative); Specific Gravity 1.015 (1.005-1.025); Urobilinogen 0.2 EU/dL (Up TO 0.2); pH 5.5 (5-8)
[2022-02-01 15:42] LABS: WBC >50 HPF (0-5)
[2022-02-01 15:43] LABS: Bacteria Few HPF (Negative); C & S Indicated? C&S Done As Ordered; Epithelial Cells Many HPF (Negative); Other Cells Moderate Yeast (Negative)
== END 2022-02-01 16:33 | disposition home or self-care (01) ==
LOC: LBN 16:32
PROVIDERS: PCP Family Medicine; Visit Provider Physician Assistant Medical
DX: N39.0 Urinary tract infection, site not specified (principal)
CPT/HCPCS: 81003; 81015; 87086

== ENCOUNTER 2022-02-08 01:45 | Outpatient (CLI) | payer MEDICARE, SELFPAY ==
--- OUTSIDE RECORDS SUMMARY | 2022-02-08 01:48 | XMS_ITS | Encounter Summary ---
:1960 Author Organization [facility] [place] [address] Care Team Providers Name Role Phone Trev Burr MD Primary Care Provider Reason for Referral Consultation (Routine) - Authorized Specialty Diagnoses / Procedures Referred By Contact Refer red To Contact Neurology Diagnoses Hepatic cirrhosis, unspecified hepatic cirrhosis type, unspecified whether ascites present Memory difficulties Hailey Mcclendon MD [facility] [address] [facility] [place] [address] [place] [address] Fax: Referral ID Status Reason Start Date Expiration Visits Visits Date Requested Authorized [id number] Authorized Consult, 11/08/2021 11/08/2022 1 1 Test & Treat Encounter Details Date Type Department Care Team Description 11/08/2021 Orders [place] [facility] [place]iley Mcclendon, Hepatic cirrhosis, unspecifi ed hepatic cirrhosis type, unspecified whether ascites present; [facility] Maciel lorenzana [place] [address] [facility] [phone] [place] [address] Social History Tobacco Use Types Packs/Day Years Used Date Former Smoker Cigarettes 1 30 Quit: 07/23/19 17 Smokeless Tobacco: Never Used Alcohol Use Standard Drinks/Week Comments No 0 (1 standard drink = 0.6 oz pure alcoho l) 3 X a year Alcohol Habits Answer Date Recorded How often do you have a drink containing alcohol? Never 07/10/2018 How many drinks containing alcohol do you have on a typical Not asked day when you are drinking? How often do you have six or more drinks on one occasion? No t asked Comment: 3 X a year 01/30/2017 Sex Assigned at Date Recorded Female 09/28/2020 7:08 PM EST documented as of this encounter Plan of Treatment Upcoming Encounters Date Type Specialty Care Team Description 03/15/2022 Office Visit Neurology Ryann Barfield, SHMUEL [facility] [address] [place] [address] 03/23/2022 Appointment Radiology Hailey Mcclendon MD [facility] [address] [place] [address] 03/23/2022 Laboratory Appointment Lab 03/23/2022 Office Visit Gastroenterology Hailey Mcclendon MD [facility] [place] [address] 05/23/2022 Procedure visit Maxillofacial Surgery Corby Montes MD [facility] [address] [place] [address] Scheduled Referrals Name Type Priority Associated Diagnoses Order S chedule Referral to Outpatient Referral Routine Hepatic cirrhosis, Or dered: Neurology unspecified hepatic 11/09/19 22 cirrhosis type, unspecified whether ascites present Memory difficulties documented as of this encounter Goals Goal Patient Goal Associated Recent Patient-Stated? Author Type Problems Progress meal Lifestyle Not on track No Jeet, timing/food (08/26/2020 ilda Solitario 9:40 AM EST) MOLD MAKER APPRENTICE Note: Formatting of this note might be d ifferent from the original. Try tracking using my fitnesspal or note book Use your date book to keep track of thin gs you need to do to improve your health. Meal timing: consider eating biggest troy l mid day, otolaryngology physician dinner, try not to eat after dinner-try to stay within an 8-10 hour eating window- try to work on some consistency with meals to help avoid night eating will have formal RD visit to work on ind ividualized dietary plan to address eating behaviors and timing/frequency of meals. Limit/avoid candy Work on limiting portion sizes Decrease processed food in favor of more whole foods -try adding some vegetables to meals Goal 64 ounce of water daily. movement Lifestyle On track (08/26/2020 9:40 AM EST) No Iman Marcano APRN Note: Formatting of this note might be d ifferent from the original. Try just getting up at least once an luda r Recommend resistance training 3 times a week -can use your weights- 08/26/20- not on track with this, will work on it. sleep Lifestyle On track (08/26/2020 9:43 AM EST) No Iman Marcano APRN Note: Formatting of this note might be d ifferent from the original. Try to be consistent with sleep. Goal 7 hours of sleep nightly. Recommend consistent sleep and wake time s, avoid electronics within one hour of sleep time Continue C pap stress Lifestyle On track (08/26/2020 9:40 AM EST) No Iman Marcano APRN Note: Formatting of this note might be d ifferent from the original. Mindfulness/deep breathing practice to r educe cortisol -try for at least 10 minutes a day Continue counseling Nutrition Lifestyle No Shaila Duffy RD Note: Formatting of this note might be d ifferent from the original. Nutrition Goals: 1. Aim for ~ 20-25 grams of protein/meal 2. 1 cup fat free cottage cheese, or 1 c up Low fat plain Sudanese Yogurt or 3 eggs or 3 ounces of meat 3. Restart Protien shakes using Unsweete mariam [place] Milk 4. Consider Meal replacements such as Le na Cuisine or Healthy Choice (read label to reach 20 grams of protein) 5. Keep hard boiled eggs on hand 6. Aim for reducing fruit intake to 2 se rvings/day 1. Consider Investigating Deepka Stephanie 'What are you hungry for? 2. Restart Protien shakes using Unsweete mariam [place] Milk 3. When you feel well enough, boil a doz en hard boiled eggs Other (Enter personal goal) Lifestyle No Shaila Duffy I, RD Note: Formatting of this note might be d ifferent from the original. Nutrition Goals: 1. Consider Investigating Salena Brown 'What are you hungry for? 2. Restart Protien shakes using Unsweete mariam [place] Milk 3. When you feel well enough, boil a doz en hard boiled eggs documented as of this encounter Visit Diagnoses Diagnosis Hepatic cirrhosis, unspecified hepatic c irrhosis type, unspecified whether ascites present Memory difficulties Memory loss documented in this encounter Care Teams Grease Refining Supervisor Relationship Specialty Start Date End Date Trev Burr MD PCP - General Emergency Medicine 10/27/21 [address] [place] [address] documented as of this encounter
--- OUTSIDE RECORDS SUMMARY | 2022-02-08 01:48 | XMS_ITS | Clinical Summary ---
:1960 Author Organization [facility] [place] [address] Care Team Providers Name Role Phone Trev Burr MD Primary Care Provider Allergies Active Allergy Reactions Severity Noted Date Comments Clomipramine Other (See Comments) 08/28/2018 give m e the flu Amoxicillin-Pot Hives, Itching 06/26/2018 Clavulanate Erythromycin Hives, Itching 06/26/2018 Ketamine Other (See Comments) High 03/07/2019 Halluci nations Nitrofurantoin Other (See Comments) 06/26/2018 Cause s depression Monohyd/M-Cryst Sulfa (Sulfonamide Hives Antibiotics) Medications Medication Sig Dispensed Refills Start Date End Date Status loratadine (CLARITIN) 10 TAKE ONE TABLET 3 8 Active mg Tablet BY MOUTH EVERY DAY NEEDED gabapentin (NEURONTIN) 600 mg 4 times 1 06/09/2018 Active 600 mg Tablet daily. spironolactone TAKE ONE TABLET 3 05/13/2018 Active (ALDACTONE) 25 mg Tablet BY MOUTH EVERY DAY lisinopril TAKE ONE TABLET 3 03/09/2018 Ac tive (PRINIVIL;ZESTRIL) 5 mg BY MOUTH DAILY Tablet aspirin 81 mg Tablet, Take 81 mg by 30 tablet 3 07/11/2018 Active Chewable mouth daily. Additional Information Patient not taking. Reported on 11/22/2021 atorvastatin (LIPITOR) 10 Take 10 mg by mouth 0 Active mg Tablet daily. dulaglutide (TRULICITY Inject subcutaneously 0 Active SUBQ) once a week. diclofenac (VOLTAREN) 1 % Apply topically 4 times 0 Active Gel daily as needed. nitroGLYcerin (NITROSTAT) Place 0.4 mg under the 0 Active 0.4 mg Tablet, Sublingual tongue every 5 minutes as needed for Chest pain. acetaminophen (TYLENOL) Take 1,000 mg by mouth 0 Active 500 mg Tablet every 6 hours as needed for Pain. cholestyramine (QUESTRAN) Take by mouth 2 times 0 Active 4 gram Powder daily (with meals). acyclovir (ZOVIRAX) 5 % Apply 1 each topically 0 Active Ointment every 3 hours. valACYclovir (VALTREX) 1 TAKE ONE TABLET BY MOUTH 1 06/05/2019 Active gram Tablet EVERY DAY NEEDED ibuprofen (Advil;Motrin) Take 1 tablet by mouth 30 tablet 12 Active 600 mg Tablet every 6 hours as needed for Pain. amitriptyline (Elavil) 50 Take 50 mg by mouth 0 Active mg Tablet nightly. lactobacillus acidophilus CHEW ONE TABLET BY MOUTH 0 09/07/2019 Active & bulgar 1 million cell EVERY DAY Tablet, Chewable Trulicity 1.5 mg/0.5 mL 0 11/23/2019 Active Pen Injector carvediloL (Coreg) 25 mg Take 12.5 mg by mouth 2 0 Active Tablet times daily (with meals). Take one half tablet by mouth two times daily. multivitamin (THERAGRAN) Take 1 tablet by mouth 0 Active Tablet daily. metFORMIN (Glucophage) 500 Take 1,000 mg by mouth 0 Active mg Tablet daily. insulin Inject 35 Units 0 Acti ve glargine,hum.rec.anlog subcutaneously 2 times (BASAGLAR KWIKPEN U-100 daily. INSULIN SUBQ) HYDROcodone-acetaminophen hydrocodone-acetaminophen 0 Active 5-325 mg Tablet 5/325mg- 1-2 tab daily PRN umeclidinium (Incruse Incruse Ellipta 0 Active Ellipta) 62.5 1 puff daily mcg/actuation Disk with Device LEVALBUTEROL TARTRATE INHL levalbuterol tartrate 0 Active 1 puff daily PRN clotrimazole-betamethasone Apply topically. 0 2020 Active (LOTRISONE) 1-0.05 % Cream NovoLOG Flexpen U-100 INJECT 15 30 UNITS 0 05/25/202 1 Active Insulin Insulin Pen SUBCUTANEOUSLY THREE TIMES A DAY WITH MEALS tiotropium (Spiriva) 18 Inhale 1 capsule into the 0 02/03/2013 Active mcg Capsule, w/Inhalation lungs. Device cephALEXin (Keflex) 500 mg Take 1 capsule by mouth 3 21 capsule 0 08/23/2021 Active Capsule times daily. ciprofloxacin (Cipro) 500 Take 1 tablet by mouth 2 14 tablet 0 09/12/2021 Active mg TabletIndications: times daily. Lower urinary tract symptoms (LUTS) rifAXIMin (Xifaxan) 550 mg Take 1 tablet by mouth 2 180 tablet 3 09/12/2021 Active Tablet times daily. ciprofloxacin (Cipro) 500 Take 1 tablet by mouth 2 14 tablet 0 10/26/2021 Active mg Tablet times daily. Active Problems Problem Noted Date Cirrhosis 08/04/2020 Overview: 2/2 ACEVEDO and sarcoidosis. MELD-Na 7. 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 Ventral hernia 07/22/2018 Nephrolithiasis 07/09/2018 Cardiomyopathy Type 2 diabetes mellitus, without long-term current us e of insulin History of herpes simplex infection LBBB (left bundle branch block) Class 3 severe obesity with serious comorbidity and shyann dy mass index (BMI) of 50.0 to 59.9 in adult Sarcoidosis Resolved Problems Problem Noted Date Resolved Date CIS - Chest pain 08/28/2018 CIS - Depression 08/28/2018 CIS - OCD 08/28/2018 Osteoma of ear canal 08/28/2018 Encounters Date Type Specialty Care Team Description 01/27/2022 Orders Only Cardiology Jerrica Drew, unspecified type (Primary Dx); Joni Akhtar MD ASCVD (arterio sclerotic cardiovascular disease) 11/22/2021 Office Visit Maxillofacial Surgery Corby Montes Malted Milk Mixer michell dental caries MD Nadya extending to pu lp 11/15/2021 Orders Only Cardiology Rajendra, Cardiomyopathy, Joni Akhtar MD unspecified ty pe 11/15/2021 Telephone Cardiology Maria Fernanda Gomes RN from Last 3 Months Immunizations Name Administration Dates Next Due Influenza PF, Split 08/28/2018 (Deferred: Patient Refused) Family History Medical History Relation Comments Anesthesia Reaction Father Cancer Father Cancer Sister Relation Status Comments Father Maternal Grandfather Maternal Grandmother Mother Paternal Grandfather Paternal Grandmother Sister Alive Social History Tobacco Use Types Packs/Day Years [...] Date Recorded Female 09/28/2020 7:08 PM EST Last Filed Vital Signs Vital Sign Reading Time Taken Comments Blood Pressure 152/67 10/27/2021 6:00 PM EDT Pulse 65 10/27/2021 2:50 PM EDT Temperature 36.7 ??C (98.1 ??F) 10/27/2021 3:52 PM EDT Respiratory Rate 18 10/27/2021 2:50 PM EDT Oxygen Saturation 94% 10/27/2021 6:00 PM EDT Inhaled Oxygen Concentration - - Weight 144.2 kg (318 lb) 10/27/2021 2:50 PM EDT Height 167.6 cm (5' 6) 10/27/2021 2:50 PM EDT Body Mass Index 51.33 10/27/2021 2:50 PM EDT Plan of Treatment Upcoming Encounters Date Type Specialty Care Team Description 03/15/2022 Office Visit Neurology Ryann Barfield, SHMUEL [facility] [address] [place], [place] [address] 03/23/2022 Appointment Radiology Hailey Mcclendon MD [facility] [address] [place] [address] 03/23/2022 Laboratory Appointment Lab 03/23/2022 Office Visit Gastroenterology Hailey Mcclendon MD [facility] [address] [place] [address] 05/23/2022 Procedure visit Maxillofacial Surgery Corby Montes MD [facility] [address] [place] [address] Health Maintenance Due Date Last Done Comments Covid-19 Vaccine (#1) 12/01/1964 Pneumococcal Vaccine: At-Risk 12/01/1965 5-64yrs (1 - PCV) DM Opthalmology Exam 12/01/1969 DM Urine Microalbumin yearly 12/01/1969 HIV screen 12/01/1977 Tdap adult 12/01/1978 Tetanus vaccine 12/01/1978 HPV test 12/01/1989 PAP Smear 12/01/1989 Breast Cancer Share Decision 1999 Needed Breast Cancer screening 12/01/2009 Zoster vaccine (1 of 2) 12/01/2009 DM Hemoglobin A1c 04/15/2019 01/13/2019, 07/10/2018 Influenza (Flu) vaccine (1 of 1 - 03/23/2022 Influenza standard series) DM Creatinine yearly 09/12/2022 09/12/2021, 03/12/2020, 09/25/2019, Additional history exists Colonoscopy 08/01/2026 08/01/2021, 08/01/2021, 03/26/2019, Additional history exists Hepatitis C Screening Completed 06/13/2019 Goals Goal Patient Goal Associated Recent Patient-Stated? Author Type Problems Progress meal Lifestyle Not on track No Jeet, timing/food (08/26/2020 ilda Solitario 9:40 AM EST) SHMUEL Note: Formatting of this note might be d ifferent from the original. Try tracking using my fitnesspal or note book Use your date book to keep track of thin gs you need to do to improve your health. Meal timing: consider eating biggest troy l mid day, beauty school instructor dinner, try not to eat after dinner-try [...] track (08/26/2020 9:40 AM EST) No Iman Marcano, SPECIAL WEAPONS UNIT OFFICER Note: Formatting of this note might be d ifferent from the original. Try just getting up at least once an luda r Recommend resistance training 3 times a week -can use your weights- 08/26/20- not on track with this, will work on it. sleep Lifestyle On track (08/26/2020 9:43 AM EST) No Iman Marcano, SHMUEL Note: Formatting of this note might be d ifferent from the original. Try to be consistent with sleep. Goal 7 hours of sleep nightly. Recommend consistent sleep and wake time s, avoid electronics within one hour of sleep time Continue C pap stress Lifestyle On track (08/26/2020 9:40 AM EST) No Iman Marcano, SPECIAL WEAPONS UNIT OFFICER Note: Formatting of this note might be d ifferent from the original. Mindfulness/deep breathing practice to r educe cortisol -try for at least 10 minutes a day Continue counseling Nutrition Lifestyle No Shaila Duffy I, RD Note: Formatting of this note might be d ifferent from the original. Nutrition Goals: 1. Aim for ~ 20-25 grams of protein/meal 2. 1 cup fat free cottage cheese, or 1 c up Low fat plain Kuwaiti Yogurt or 3 eggs or 3 ounces of meat 3. Restart Protien shakes using Unsweete mariam [place] Milk 4. Consider Meal replacements such as Le na Cuisine or Healthy Choice (read label to reach 20 grams of protein) 5. Keep hard boiled eggs on hand 6. Aim for reducing fruit intake to 2 se rvings/day 1. Consider Investigating Deepka Stephanie 'What are you hungry for? 2. Restart Protien shakes using Unsweete mariam [place] Milk 3. When you feel well enough, boil a doz en hard boiled eggs Other (Enter personal goal) Lifestyle No Shaila Duffy I, RD Note: Formatting of this note might be d ifferent from the original. Nutrition Goals: 1. Consider Investigating Deepka Stephanie 'What are you hungry for? 2. Restart Protien shakes using Unsweete mariam [place] Milk 3. When you feel well enough, boil a doz en hard boiled eggs Medical Devices Implanted Type Area Housing Grant Analyst Device Shelf Model / Identifier Expiration Serial / Date Lot Stent,Uret,Univ,Soft,7fr,22-32 ([id number]) - [id number] IMPLANTS Righ t: [employer] 06/24/2021 [id number] / Implanted: Qty: 1 on 09/26/2018 by Crow Galvin Jr., MD at [facility] [employer] - [id number] [place] [employer] Explanted Type Area Housing Grant Analyst Device Shelf Model / Identifier Expiration Serial / Date Lot Stent,Contour-Vl,[id number]) - [id number] IMPLANTS Right: [facility] [id number] / Implanted: Qty: 1 on 07/10/2018 by Viky Sears MD at [facility] [employer]ter [employer] / Explanted: Qty: 1 on 09/26/2018 by Crow Galvin Jr., MD [id number] Description: [id number] Stent,Uret,Univ,Soft,7fr,22-32 ([id number]) - [id number] IMPLANTS Left : [place] 04/27/2022 [id number] / Implanted: Qty: 1 on 11/07/2018 by Crow Galvin Jr., MD at [facility] [employer]ter [employer] / Explanted: Qty: 1 on 11/19/2018 by Crow Galvin Jr., MD CORPORATION [id number] Explanted: Crow Galvin Jr., MD (Quantity not on file) - [facility] Insurance Payer Benefit Plan / Subscriber ID Effective Dates Phone Addre ss Type Group MEDICARE MEDICARE PART A [id number] 2003-Lucrecia [phone] [id number] [place] [id number] Advance Directives Documents on File Type Date Recorded Patient Traffic Rate Clerk Explanati on Advance Directives and Living 04/18/2019 2:40 PM 04/14/2019 Will Personal Traffic Rate Clerk 02/20/2019 1:39 PM Mona Samayoa Latest Code Status on File Code Status Date Activated Date Inactivated Comments Suspended DNR 08/12/2019 1:14 PM 08/13/2019 2:12 PM Does patient have capacity to make Yes decision: Order Status: Suspended DNR until new order placed Content of discussion: Patients advance directives for DNR t o be reinstated 24 hrs after surgery Suspended DNR 07/01/2019 8:41 AM 07/02/2019 4:42 AM Does patient have capacity to make decision: Yes Order Status: Suspended DNR until new order placed Full Code 03/07/2019 9:20 AM 03/08/2019 4:34 AM Does patient have capacity to make decision: Yes Full Code 02/19/2019 11:08 PM 02/21/2019 5:52 PM Does patient have capacity to make decision: Yes Full Code 01/04/2019 11:33 PM 01/15/2019 3:54 PM Does patient have capacity to make decision: No Code Status decision being made per: Attending of Record Care Teams Group Controller Relationship Specialty Start Date End Date Trev Burr MD PCP - General Emergency Medicine 10/27/21 [address] [place] [address]
--- OUTSIDE RECORDS SUMMARY | 2022-02-08 01:48 | XMS_ITS | Encounter Summary ---
:1960 Author Organization [facility] [place] [address] Care Team Providers Name Role Phone Trev Burr MD Primary Care Provider Encounter Details Date Type Department Care Team Description 01/27/2022 Orders Only Cardiology at [facility] [place] Joni Drew Cardiomyopathy, unspecified type (Primary Dx); [facility] MD Hermilo ASCVD (arteriosclerotic cardiovascular d isease) [facility] [id number] Cardiology [phone] [place], [place] [address] Social History Tobacco Use Types Packs/Day Years [...] 03/15/2022 Office Visit Neurology Ryann Barfield, SHMUEL [facility] [address] [place], [place] [address] 03/23/2022 Appointment Radiology Hailey Mcclendon MD [facility] [address] [place] [address] 03/23/2022 Laboratory Appointment Lab 03/23/2022 Office Visit Gastroenterology Hailey Mcclendon MD [facility] [address] [place], [place] [address] 05/23/2022 Procedure visit Maxillofacial Surgery Corby Montes MD [facility] [address] [place], [place] [address] Scheduled Orders Name Type Priority Associated Diagnoses Order S chedule EKG 12 Lead ECG Routine Cardiomyopathy, unspecified type Expected: 01/27/2023 ASCVD (arteriosclerotic (Bucky roximate), Expires: cardiovascular disease) 01/2024 documented as of this encounter Goals Goal Patient Goal Associated Recent Patient-Stated? Author Type Problems Progress meal Lifestyle Not on track Sandra Marcano timing/food (08/26/2020 ilda Solitario 9:40 AM EST) SHMUEL Note: Formatting of this note might be d ifferent from the original. Try tracking using my fitnesspal or note book Use your date book to keep track of thin gs you need to do to improve your health. Meal timing: consider eating biggest troy l mid day, patient services manager dinner, try not to eat after dinner-try [...] Lifestyle On track (08/26/2020 9:40 AM EST) Iman Hannon APRN Note: Formatting of this note might [...] or 1 c up Low fat plain Welsh Yogurt or 3 eggs or 3 ounces of meat 3. Restart Protien shakes using Unsweete mariam [place] Milk 4. Consider Meal replacements such as Le na Cuisine or Healthy Choice (read label to reach 20 grams of protein) 5. Keep hard boiled eggs on hand 6. Aim for reducing fruit intake to 2 se rvings/day 1. Consider Investigating Deepka Stephanie 'What are you hungry for? 2. Restart Protien shakes using Unsweete mariam [place] Milk 3. When you feel well enough, boil a doz en hard boiled eggs Other (Enter personal goal) Lifestyle No Shaila Duffy RD Note: Formatting of this note might be d ifferent from the original. Nutrition Goals: 1. Consider Investigating Deepka Stephanie 'What are you hungry for? 2. Restart Protien shakes using Unsweete mariam [place] Milk 3. When you feel well enough, boil a doz en hard boiled eggs documented as of this encounter Visit Diagnoses Diagnosis Cardiomyopathy, unspecified type - Prima ry ASCVD (arteriosclerotic cardiovascular d isease) Unspecified cardiovascular disease documented in this encounter Care Teams Information Services Vice President Relationship Specialty Start Date End Date Trev Burr MD PCP - General Emergency Medicine 10/27/21 [address] [place] [address] documented as of this encounter
--- OUTSIDE RECORDS SUMMARY | 2022-02-08 01:48 | XMS_ITS | Encounter Summary ---
:1960 Author Organization [facility] [place] [address] Care Team Providers Name Role Phone Trev Burr MD Primary Care Provider Encounter Details Date Type Department Care Team Description 11/15/2021 Telephone Cardiology [place] [facility] Maria Fernanda [place]omes, [place] [address] Social History Tobacco Use Types Packs/Day Years Used Date Former Smoker Cigarettes 08 21 Quit: 07/23/19 17 Smokeless Tobacco: Never Used [...] PM EST documented as of this encounter Miscellaneous Notes Telephone Encounter - Maria Fernanda Gomes RN - 11/15/2021 2:42 PM EDT TC to Ms. Samayoa regarding her my message today. On November 07 Ms Samayoa notes having, what she believes was a Nuclear Stress Test at [facility] in [place]. She was told her EF is 41%, and remembers the last EF at [facility] being 60%. - Will request that the secretaries obtain a copy of the nuclear stress test from [facility] for Dr. Drew's expert review. For the 5 days following the stress test, Ms. Samayoa notes she was weak and worn out. She is feeling better, although not back to baseline. She noted during those 5 days both arms and legs were weak. She notes SOB (which has been ongoing for years-per patient report). Ms. Samayoa denies CP and palpitations. Will have schedulers book and apt for Ms. Samayoa. Maria Fernanda Gomes DNP, chain maker machine Clinic at [facility] [id number] documented in this encounter Plan of Treatment Upcoming Encounters Date Type Specialty Care Team Description 03/15/2022 Office Visit Neurology Ryann Barfield APRN [facility] NEUROLOGY [place], [place] [address] 03/23/2022 Appointment Radiology Hailey Mcclendon MD [facility] [address] [place] [address] 03/23/2022 Laboratory Appointment Lab 03/23/2022 Office Visit Gastroenterology Hailey Mcclendon MD [facility] [address] [place] [address] 05/23/2022 Procedure visit Maxillofacial Surgery Corby Montes MD [facility] [address] [place] [address] documented as of this encounter Goals Goal Patient Goal Associated Recent Patient-Stated? Author Type Problems Progress meal Lifestyle Not on track No Jeet, timing/food (08/26/2020 ilda Solitario 9:40 AM EST) LOG MANAGER Note: Formatting of this note might be d ifferent from the original. Try tracking using my fitnesspal or note book Use your date book to keep track of thin gs you need to do to improve your health. Meal timing: consider eating biggest troy l mid day, dispatch lead dinner, try not to eat after dinner-try [...] counseling Nutrition Lifestyle No Shaila Duffy I, AKSHAT Note: Formatting of this note might be d ifferent from the original. Nutrition Goals: 1. Aim for ~ 20-25 grams of protein/meal 2. 1 cup fat free cottage cheese, or 1 c up Low fat plain Sinhala Yogurt or 3 eggs or 3 ounces of meat 3. Restart Protien shakes using Unsweete mariam [place] Milk 4. Consider Meal replacements such as Le na Cuisine or Healthy Choice (read label to reach 20 grams of protein) 5. Keep hard boiled eggs on hand 6. Aim for reducing fruit intake to 2 se rvings/day 1. Consider Investigating Deepka Stephanie 'What are you hungry for? 2. Restart Protien shakes using Unsweete mariam [place] Milk 3. When you feel well enough, boil a doz en hard boiled eggs Other (Enter personal goal) Lifestyle No Shaila Duffy I, RD Note: Formatting of this note might be d ifferent from the original. Nutrition Goals: 1. Consider Investigating Deepka Stephanie 'What are you hungry for? 2. Restart Protien shakes using Unsweete mariam [place] Milk 3. When you feel well enough, boil a doz en hard boiled eggs documented as of this encounter Visit Diagnoses Not on filedocumented in this encounter Care Teams Diet Consultant Relationship Specialty Start Date End Date Trev Burr MD PCP - General Emergency Medicine 10/27/21 [address] [place] [address] documented as of this encounter
--- OUTSIDE RECORDS SUMMARY | 2022-02-08 01:48 | XMS_ITS | Encounter Summary ---
:1960 Author Organization [place] [place] [address] Care Team Providers Name Role Phone Trev Burr MD Primary Care Provider Reason for Referral Diagnostic Test (Routine) - Authorized Specialty Diagnoses / Procedures Referred By Contact Refer red To Contact Cardiology Diagnoses Cardiomyopathy, unspecified type Joni Drew MD [facility] Non-Inv Card Lab Procedures Echocardiogram Transthoracic [facility] [place] [address] [place] [address] Fax: Referral ID Status Reason Start Expiration Visits Visits Date Date Requested Authorized [id number] Authorized Specialty 11/15/2021 11/15/2022 1 1 Service Requested Encounter Details Date Type Department Care Team Description 11/15/2021 Orders Only [place] [facility] [place]i Drew Cardiomyopathy, [facility] [place] [address] Cardiology [place], [place] [address] Social History Tobacco Use Types [...] PM EST documented as of this encounter Progress Notes Maria Fernanda Gomes RN - 11/15/2021 3:53 PM EDT Requested Nuclear Stress Test from [facility]. Shown to Dr. Drew. Plan of care: will bring patient in for a f/u visit along with an echo to get a more accurate EF. Will pend echo. Will route to schedulers to schedule both echo and f/u apt. TC to Diego Yao- who agrees with plan. Maria Fernanda Gomes DNP, bilingual teacher Clinic at [facility] [phone] documented in this encounter Plan of Treatment Upcoming Encounters Date Type Specialty Care Team Description 03/15/2022 Office Visit Neurology Ryann Barfield APRN [facility] [address] [place], [place] [address] 03/23/2022 Appointment Radiology Hailey Mcclendon MD [facility] [place] [address] [place] [address] 03/23/2022 Laboratory Appointment Lab 03/23/2022 Office Visit Gastroenterology Hailey Mcclendon MD [facility] [address] [place] [address] 05/23/2022 Procedure visit Maxillofacial Surgery Corby Montes MD [facility] [address] [place] [address] Scheduled Orders Name Type Priority Associated Diagnoses Order S chedule Echocardiogram Echocardiography Routine Cardiomyopathy, Expect ed: Transthoracic unspecified type 11/15/2021 (Approximate), Expires: 11/15/2022 documented as of this encounter Goals Goal [...] consider eating biggest troy l mid day, cook mess dinner, try not to eat after dinner-try [...] (08/26/2020 9:40 AM EST) No Iman Marcano, SHMUEL Note: [...] On track (08/26/2020 9:40 AM EST) Iman Hannon, SHMUEL Note: Formatting of this note might [...] 3. Restart Protien shakes using Unsweete mariam [place] Milk 4. Consider Meal replacements such as Le na Cuisine or Healthy Choice (read label to reach 20 grams of protein) 5. Keep hard boiled eggs on hand 6. Aim for reducing fruit intake to 2 se rvings/day 1. Consider Investigating Deepka Stephanie 'What are you hungry for? 2. Restart Protien shakes using Unsweete mariam [place] Milk 3. When you feel well enough, boil a doz en hard boiled eggs Other (Enter personal goal) Lifestyle No Shaila Duffy RD Note: Formatting of this note might be d ifferent from the original. Nutrition Goals: 1. Consider Investigating Deepka Stephanie 'What are you hungry for? 2. Restart Protien shakes using Unsweete mariam [place] Milk 3. When you feel well enough, boil a doz en hard boiled eggs documented as of this encounter Visit Diagnoses Diagnosis Cardiomyopathy, unspecified type documented in this encounter Care Teams Geophysics Teacher Relationship Specialty Start Date End Date Trev Burr MD PCP - General Emergency Medicine 10/27/[address] [place] [id number] documented as of this encounter
--- OUTSIDE RECORDS SUMMARY | 2022-02-08 01:48 | XMS_ITS | Encounter Summary ---
:1960 Author Organization [facility] [place] [address] Care Team Providers Name Role Phone Trev Burr MD Primary Care Provider Reason for Visit Consultation (Routine) - Closed Specialty Diagnoses / Procedures Referred By Contact Refer red To Contact Maxillofacial Surgery Diagnoses extraction #4 and 5 Vicente Ahuja, DMD [facility] Maxillo Surg 5b [address] [facility] [address] [place] [address] [place] [address] Phone: Fax: Referral ID Status Reason Start Date Expiration Date Visits Requ ested Visits Authorized [id number] Closed 07/07/2021 07/07/2022 1 1 Encounter Details Date Type Department Care Team Description 11/22/2021 Office Visit Maxillofacial Surgery Corby Montes C hronic dental caries at [facility] MD extending to [place] [address] [place] [address] [phone] Social History Tobacco Use Types Packs/Day Years [...] documented as of this encounter Progress Notes Corby Montes MD - 11/22/2021 9:00 AM EDT Images from the original note were not included. [facility]MAXILLOFACIAL SURGERY OUTPATIENT CLINIC INITIAL CONSULTATION VISIT - EXTRACTION Name: Blossom Samayoa Age/Sex: 60 y.o. female History of Present Illness Blossom Samayoa is a 60 y.o. female referred by Vicente Russ for consultation regarding dental extraction(s). A complete history of the Blossom 's symptoms and physical signs were reviewed with attention to initial findings and progression, pain, bleeding, swelling, lumps, bumps, drainage, dysphagia, odynophagia, paresthesia, dysarthria and systemic effects. Pertinent notations from today's history: ??? Reports she has 3 teeth that need to be extracted, two on the upper right, one on the upper left ??? Dentist recently told her that #10 needed to be removed as well Past Medical/Social/Dental History Past Medical History: Diagnosis Date ??? Asthma ??? Bowel disease IBS ??? CHF (congestive heart failure) diag 2016 [facility] ??? Chronic lung disease sarcoidosis ??? Chronic pain mostly legs,back,neuropathy ??? Cirrhosis 08/04/2020 ??? CIS - Chest pain ??? COPD (chronic obstructive pulmonary disease) ??? CPAP (continuous positive airway pressure) dependence get the machine the Aug. ??? Delayed emergence from anesthesia 2018stent done, had to have revresal ??? Diabetes ??? Irregular heart beat LBBB diag 2009 weak left ventricle ??? Kidney failure 'don't know if it's failure ??? [facility] current use of opiate analgesic PCP ??? Mental health problem ??? Obstructive sleep apnea diag 2007 ??? Osteoma of ear canal ??? Vertigo balance prob,last fall early Jun. Patient Active Problem List Diagnosis Code ??? Cardiomyopathy I42.9 ??? Type 2 diabetes mellitus, without long-term current use of insulin E11.9 ??? History of herpes simplex infection Z86.19 ??? LBBB (left bundle branch block) I44.7 ??? Class 3 severe obesity with serious comorbidity and body mass index (BMI) of 50.0 to 59.9 in adult E66.01, Z68.43 ??? Sarcoidosis D86.9 ??? Nephrolithiasis N20.0 ??? Ventral hernia K43.9 ??? HTN (hypertension) I10 ??? Gastroesophageal reflux K21.9 ??? PTSD (post-traumatic stress disorder) F43.10 ??? COPD (chronic obstructive pulmonary disease) J44.9 ??? Asthma J45.909 ??? Anxiety F41.9 ??? Depression F32.A ??? Former smoker Z87.891 ??? Chronic prescription opiate use Z79.891 ??? Renal calculus, left N20.0 ??? Shock R57.9 ??? Abscess L02.91 ??? Hyperparathyroidism, primary E21.0 ??? MOSES (obstructive sleep apnea) G47.33 ??? Insomnia G47.00 ??? 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 Cirrhosis K74.60 Social History Tobacco Use ??? Smoking status: Former Smoker Packs/day: 1.00 Years: 30.00 Pack years: 30.00 Types: Cigarettes Quit date: 07/23/2016 Years since quittin.3 ??? Smokeless tobacco: Never Used Substance Use Topics ??? Alcohol use: No Comment: 3 X a year ??? ciprofloxacin (Cipro) 500 mg Tablet ??? ciprofloxacin (Cipro) 500 mg Tablet ??? rifAXIMin (Xifaxan) 550 mg Tablet ??? cephALEXin (Keflex) 500 mg Capsule ??? HYDROcodone-acetaminophen 5-325 mg Tablet ??? umeclidinium (Incruse Ellipta) 62.5 mcg/actuation Disk with Device ??? LEVALBUTEROL TARTRATE INHL ??? clotrimazole-betamethasone (LOTRISONE) 1-0.05 % Cream ??? NovoLOG Flexpen U-100 Insulin Insulin Pen ??? tiotropium (Spiriva) 18 mcg Capsule, w/Inhalation Device ??? metFORMIN (Glucophage) 500 mg Tablet ??? insulin glargine,hum.rec.anlog (BASAGLAR KWIKPEN U-100 INSULIN SUBQ) ??? multivitamin (THERAGRAN) Tablet ??? carvediloL (Coreg) 25 mg Tablet ??? Trulicity 1.5 mg/0.5 mL Pen Injector ??? amitriptyline (Elavil) 50 mg Tablet ? ? lactobacillus acidophilus & bulgar 1 million cell Tablet, Chewable ??? ibuprofen (Advil;Motrin) 600 mg Tablet ??? acetaminophen (TYLENOL) 500 mg Tablet ??? cholestyramine (QUESTRAN) 4 gram Powder ??? acyclovir (ZOVIRAX) 5 % Ointment ??? valACYclovir (VALTREX) 1 gram Tablet ??? nitroGLYcerin (NITROSTAT) 0.4 mg Tablet, Sublingual ??? diclofenac (VOLTAREN) 1 % Gel ??? atorvastatin (LIPITOR) 10 mg Tablet ??? dulaglutide (TRULICITY SUBQ) ??? aspirin 81 mg Tablet, Chewable ??? loratadine (CLARITIN) 10 mg Tablet ??? gabapentin (NEURONTIN) 600 mg Tablet ??? spironolactone (ALDACTONE) 25 mg Tablet ??? lisinopril (PRINIVIL;ZESTRIL) 5 mg Tablet Allergies Allergen Reactions ??? Ketamine Other (See Comments) Hallucinations ??? Anafranil [Clomipramine] Other (See Comments) give me the flu ??? Augmentin [Amoxicillin-Pot Clavulanate] Hives and Itching ??? Erythromycin Hives and Itching ??? Macrobid [Nitrofurantoin Monohyd/M-Cryst] Other (See Comments) Causes depression ??? Sulfa (Sulfonamide Antibiotics) Hives Review of Systems Pertinent positive and negative findings discussed above. ROS with attention to cardiac, pulmonary, hepatic, renal, neurologic and dermatologic systems reviewed with relevant findings as noted. Physical Exam Vitals: There were no vitals taken for this visit. There is no height or weight on file to calculate BMI. General: No acute distress, pleasant Focused oral exam: No trismus No oral lesions visualized Caries of #4/5/10 subgingival and compromised clinical crown No facial swelling or erythema Neuro: a/o x3 Neck: soft, supple Psych: appropriate, responds to questions normally Imaging Personally reviewed and evaluated ASSESSMENT & RECOMMENDATIONS Assessment: caries 4,5,10 (will obtain radiograph of #10 at next visit) Recommendations/plan: Patient concerned about dental coverage for extractions. Unsure if medicare covers dental extractions. Estimation of service line given and patient will decide if she wants to move forward with extraction under local anesthesia at next visit. We appreciate the opportunity to be involved in Ms. Samayoa's care. Corby Montes MD, DMD 11/17/2021 3:13 PM This note may have incorporated [id number] technology and though reviewed typographical or syntaxerrors may remain. documented in this encounter Plan of Treatment Upcoming Encounters Date Type Specialty Care Team Description 03/15/2022 Office Visit Neurology Ryann Barfield APRN [facility] [place] [address] 03/23/2022 Appointment Radiology Hailey Mcclendon MD [facility] [address] [place] [address] 03/23/2022 Laboratory Appointment Lab 03/23/2022 Office Visit Gastroenterology Hailey Mcclendon MD [facility] [address] [place] [address] 05/23/2022 Procedure visit Maxillofacial Surgery Corby Montes MD [facility] [address] [place], [place] [address] documented as of this encounter Goals [...] consider eating biggest troy l mid day, drop count associate dinner, try not to eat after dinner-try [...] (08/26/2020 9:40 AM EST) No Iman Marcano, FOURDRINIER WIRE WEAVER Note: Formatting of this note might be d ifferent from the original. Try just getting up at least once an luda r Recommend resistance training 3 times a week -can use your weights- 08/26/20- not on track with this, will work on it. sleep Lifestyle On track (08/26/2020 9:43 AM EST) No Iman Marcano, FOURDRINIER WIRE WEAVER Note: Formatting of this note might be d ifferent from the original. Try to be consistent with sleep. Goal 7 hours of sleep nightly. Recommend consistent sleep and wake time s, avoid electronics within one hour of sleep time Continue C pap stress Lifestyle On track (08/26/2020 9:40 AM EST) No Iman Marcano, FOURDRINIER WIRE WEAVER Note: Formatting of this note might be [...] or 1 c up Low fat plain [place] Yogurt or 3 eggs or 3 ounces of meat 3. Restart Protien shakes using Unsweete mariam [place] Milk 4. Consider Meal replacements such as Le na Cuisine or Healthy Choice (read label to reach 20 grams of protein) 5. Keep hard boiled eggs on hand 6. Aim for reducing fruit intake to 2 se rvings/day 1. Consider Investigating Deepka Stephanie 'What are you hungry for? 2. Restart Protien shakes using Unsweete mariam [place] Milk 3. When you feel well enough, boil a doz en hard boiled eggs Other (Enter personal goal) Lifestyle No Shaila Duffy I, RD Note: Formatting of this note might be d ifferent from the original. Nutrition Goals: 1. Consider Investigating Deepka Stephanie 'What are you hungry for? 2. Restart Protien shakes using Unsweete mariam [place] Milk 3. When you feel well enough, boil a doz en hard boiled eggs documented as of this encounter Visit Diagnoses Diagnosis Chronic dental caries extending to pulp Dental caries extending into pulp documented in this encounter Care Teams Metal Products Fabricator Assembler Relationship Specialty Start Date End Date Trev Burr MD PCP - General Emergency Medicine 10/27/21 [address] [place] [address] documented as of this encounter
--- OUTSIDE RECORDS SUMMARY | 2022-02-08 01:48 | XMS_ITS | Encounter Summary ---
:1960 Author Organization [facility] [place] [address] Care Team Providers Name Role Phone Trev Burr MD Primary Care Provider Encounter Details Date Type Department Care Team Description 10/27/2021 Surgery Main Operating Room Meghana Galvin CYSTO, RETROGRADE, Hailey Gomez Jr., MD URETEROPYELOGRAPHY ([facility] 2.37) [facility] [address] [facility] UROLOGY DEPT. [place], [place] [phone] Social History Tobacco Use Types Packs/Day Years [...] PM EST documented as of this encounter Last Filed Vital Signs Vital Sign Reading Time Taken Comments Blood Pressure 127/53 10/27/2021 2:50 PM EDT Pulse 65 10/27/2021 2:50 PM EDT Temperature 36.7 ??C (98.1 ??F) 10/27/2021 3:52 PM EDT Respiratory Rate 18 10/27/2021 2:50 PM EDT Oxygen Saturation 96% 10/27/2021 2:50 PM EDT Inhaled Oxygen Concentration - - Weight 144.2 kg (318 lb) 10/27/2021 2:50 PM EDT Height 167.6 cm (5' 6) 10/27/2021 2:50 PM EDT Body Mass Index 51.33 10/27/2021 2:50 PM EDT documented in this encounter Discharge Instructions Patient InstructionsDayan Schneider MD - 10/27/2021 5:38 PM EDT Instructions following Cystoscopy and Kidney Pictures: Activity: As tolerated. You may find that with increasing activity you have more blood in your urine. If your urine becomes very bloody, limit your activity until it clears. Urination: You will likely have a small amount of blood in your urine for the next several days, up to 10-14 days. This is normal; however, if you are passing large amounts of blood clots, bright red blood or you are unable to urinate, please call our office at [phone] before 5PM or [phone] after hours. You will likely have burning with urination for a few days. Please complete the ciprofloxacin that you were prescribed. Pain Medication: You may use tylenol for pain. Drink lots of fluids. Call Doctor for: - copious blood or large clots in your urine - you are unable to urinate - severe back or side pain - pain not controlled by oral medications at home - persistent nausea and vomiting - any fever > 101.3F The number for questions is [phone] before 5 PM weekdays and [phone] after 5 PM and weekends. Follow-up: You should receive a phone call to see Dr. Galvin in ~8 weeks with an ultrasound prior. If you do not hear from us over the next month, please call [phone] to confirm the time and date. documented in this encounter Medications at Time of Discharge Medication Sig Dispensed Refills Start Date End Date ciprofloxacin (Cipro) Take 1 tablet by mouth 14 tablet 0 500 mg Tablet 2 times daily. ciprofloxacin (Cipro) Take 1 tablet by mouth 14 tablet 0 500 mg 2 times daily. TabletIndications: Lower urinary tract symptoms (LUTS) rifAXIMin (Xifaxan) 550 Take 1 tablet by mouth 180 tablet 3 09/12/2021 mg Tablet 2 times daily. cephALEXin (Keflex) 500 Take 1 capsule by mouth 21 capsule 0 08/23/2021 mg Capsule 3 times daily. HYDROcodone-acetaminoph hydrocodone-acetaminophen 0 en 5-325 mg Tablet 5/325mg- 1-2 tab daily PRN umeclidinium (Incruse Incruse Ellipta 0 Ellipta) 62.5 1 puff daily mcg/actuation Disk with Device LEVALBUTEROL TARTRATE levalbuterol tartrate 0 INHL 1 puff daily PRN clotrimazole-betamethas Apply topically. 0 2020 one (LOTRISONE) 1-0.05 % Cream NovoLOG Flexpen U-100 INJECT 15 30 UNITS 0 2020 Insulin Insulin Pen SUBCUTANEOUSLY THREE TIMES A DAY WITH MEALS tiotropium (Spiriva) 18 Inhale 1 capsule into 0 0 02/03/2013 mcg Capsule, the lungs. w/Inhalation Device metFORMIN (Glucophage) Take 1,000 mg by mouth 0 500 mg Tablet daily. insulin Inject 35 Units 0 glargine,hum.rec.anlog subcutaneously 2 times (BASAGLAR KWIKPEN U-100 daily. INSULIN SUBQ) multivitamin Take 1 tablet by mouth 0 (THERAGRAN) Tablet daily. carvediloL (Coreg) 25 Take 12.5 mg by mouth 2 0 mg Tablet times daily (with meals). Take one half tablet by mouth two times daily. Trulicity 1.5 mg/0.5 mL 0 11/23/2019 Pen Injector amitriptyline (Elavil) Take 50 mg by mouth 0 50 mg Tablet nightly. lactobacillus CHEW ONE TABLET BY 0 09/07/2019 acidophilus & bulgar 1 MOUTH EVERY DAY million cell Tablet, Chewable ibuprofen Take 1 tablet by mouth 30 tablet 12 08/13/2019 (Advil;Motrin) 600 mg every 6 hours as needed Tablet for Pain. acetaminophen (TYLENOL) Take 1,000 mg by mouth 0 500 mg Tablet every 6 hours as needed for Pain. cholestyramine Take by mouth 2 times 0 (QUESTRAN) 4 gram daily (with meals). Powder acyclovir (ZOVIRAX) 5 % Apply 1 each topically 0 Ointment every 3 hours. valACYclovir (VALTREX) TAKE ONE TABLET BY 1 06/05 1 gram Tablet MOUTH EVERY DAY NEEDED nitroGLYcerin Place 0.4 mg under the 0 (NITROSTAT) 0.4 mg tongue every 5 minutes Tablet, Sublingual as needed for Chest pain. diclofenac (VOLTAREN) 1 Apply topically 4 times 0 % Gel daily as needed. atorvastatin (LIPITOR) Take 10 mg by mouth 0 10 mg Tablet daily. dulaglutide (TRULICITY Inject subcutaneously 0 SUBQ) once a week. aspirin 81 mg Tablet, Take 81 mg by mouth 30 tablet 3 07/11 Chewable daily. loratadine (CLARITIN) TAKE ONE TABLET BY 3 2017 10 mg Tablet MOUTH EVERY DAY NEEDED gabapentin (NEURONTIN) 600 mg 4 times daily. 1 600 mg Tablet spironolactone TAKE ONE TABLET BY 3 05/13/2018 (ALDACTONE) 25 mg MOUTH EVERY DAY Tablet lisinopril TAKE ONE TABLET BY 3 03/09/2018 (PRINIVIL;ZESTRIL) 5 mg MOUTH DAILY Tablet documented as of this encounter H&P Notes Rah Fernandez MD - 10/27/2021 3:56 PM EDT Patient Name: Blossom Samayoa Age: 60 y.o. Date of : 1960 Attending Provider: Meghana Galvin Jr., MD Urology Pre-op H&P Blossom Samayoa is a 60 y.o. female with PMH of hematuria and bilateral non- obstructing nephrolithiasis (cystoscopy with erythematous spots, biopsies were negative 2020), with continued intermittenthematuria for planned cystoscopy, possible bladder biopsy/fulguration, bilateral retrograde pyelograms. Anticoagulation: ASA UA 10/20: Negative Ucx 10/24: Klebsiella - prescribed Cipro (2 doses yesterday, 1 today). See media for sensitivities. No recent changes to health status. PMH: Cardiomyopathy Diabetes Depression obesity HTN HLD MOSES Chronic pain Nephrolithiasis - has had several lithotripsies in the past PSHx: Parathyroidectomy 2020 Bilateral PCNL's Open cholecystectomy Open total hysterectomy PHYSICAL EXAM Temp: -- Heart Rate: -- Resp: -- BP: ()/() SpO2: -- Heart Rate from SpO2: -- GEN: Resting comfortably in bed, conversant, NAD. CHEST: CTAB CV: RRR, no murmurs appreciated ASSESSMENT / PLAN 60 y.o. female presenting for cystoscopy, possible bladder biopsy/fulguration, bilateral retrograde pyelogram. All risks, benefits and alternatives have been explained, patient wishes to proceed with scheduled procedure. - Consent signed - Antibiotics ordered - No site marking required - SCDs ordered - Pre-op checklist completed Dayan Schneider MD documented in this encounter Miscellaneous Notes Brief Op Note - Meghana Galvin Jr., MD - 10/27/2021 5:26 PM EDT Brief Operative Note Patient Name: Blossom Samayoa : [id number] MR#: [id number] Case Date: 10/27/2021 Surgeon: Surgeon(s) and Role: * Meghana Galvin Jr., MD - Primary * Dayan Schneider MD - Resident * Rah Fernandez MD - Resident Preoperative diagnosis: BILATERAL RENAL STONES Postoperative diagnosis: BILATERAL RENAL STONES Procedure(s) (LRB): CYSTO, RETROGRADE, URETEROPYELOGRAPHY (WRVU 2.37) (Bilateral) Anesthesia: General Findings: Urine in bladder clear yellow, not grossly bloody. No identified intravesical bleeding or tumors. Clear yellow urine effluxed from both ureteral orifices. No ureteral filling defects bilaterally. Retrograde pyelogram otherwise notable for stable appeaing right upper pole infundibular narrowing, but no evident filling defects in renal pelvis or calces bilaterally Complications: none evident Intake: Intraprocedure Crystalloid Total Intake lactated ringers infusion 500.00 mL Total Intake 500 mL Output Blood Loss 1 mL Total Output 1 mL Net Net Volume 499 mL Transfusion No data found in the last 1 encounters. Output: Estimated Blood Loss: 1 mL Urine Output:: (no urine output recorded) Other Output: (no other output recorded) Drains: none Specimens removed during surgery: None Disposition: awakened from anesthesia, extubated and taken to the recovery room in a stable condition, having suffered no apparent untoward event. Condition: doing well without problems Attestation: Case Date: 10/27/2021 I was present and I participated during the entire procedure. (Please see the Surgical Encounter Summary for any Implant and Specimen details pertinent to this patient.) Op Note - Dayan Schneider MD - 10/27/2021 4:48 PM EDT [facility] Operative Note Patient Name: Blossom Samayoa : [id number] MR#: [id number] Case Date: 10/27/2021 Surgeon: Surgeon(s) and Role: * Meghana Galvin Jr., MD - Primary * Dayan Schneider MD - Resident * Rah Fernandez MD - Resident Preoperative diagnosis: BILATERAL RENAL STONES Postoperative diagnosis: BILATERAL RENAL STONES Procedure(s) (LRB): CYSTO, RETROGRADE, URETEROPYELOGRAPHY (WRVU 2.37) (Bilateral) Anesthesia: General ?? Findings: Urine in bladder clear yellow, not grossly bloody. ??No identified intravesical bleeding or tumors. Clear yellow urine effluxed from both ureteral orifices. No ureteral filling defects bilaterally. ??Retrograde pyelogram otherwise notable for stable appeaing right upper pole infundibular narrowing, but no evident filling defects in renal pelvis or calces bilaterally ?? Complications: none evident Intake: Intraprocedure Crystalloid Total Intake lactated ringers infusion 500.00 mL Total Intake 500 mL Output Blood Loss 1 mL Total Output 1 mL Net Net Volume 499 mL Transfusion No data found in the last 1 encounters. Output: Estimated Blood Loss: 1 mL Urine Output:: (no urine output recorded) Other Output: (no other output recorded) Drains: none ?? Specimens removed during surgery: None ?? Disposition: awakened from anesthesia, extubated and taken to the recovery room in a stable condition, having suffered no apparent untoward event. ?? Condition: doing well without problems HPI/Surgical Indications: Blossom Samayoa is a 60 y.o. female with PMH of hematuria and bilateralnon-obstructing nephrolithiasis (cystoscopy with erythematous spots, biopsies were negative 2020), with continued intermittent hematuria for planned cystoscopy, possible bladder biopsy/fulguration, bilateral retrograde pyelograms. ?? Anticoagulation: ASA UA 10/20: Negative Ucx 10/24: Klebsiella - prescribed Cipro (2 doses yesterday, 1 today). See media for sensitivities. Procedure Description: Procedure description: The patient was consented prior to being brought back to the Operating Room. She was then placed on the operating room table in supine position, and general anesthesia was induced. Preoperative antibiotics were given (gent). The patient was then placed in dorsal lithotomy position and prepped and draped in a routine sterile fashion. After an adequate time-out, a 22-Czech cystoscope was gently passedthrough the patient's urethra and into the patient's bladder. Her bladder was then emptied. A visualinspection of the bladder revealed a grossly normal bladder with no tumors, foreign bodies, stones or erythema. 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 Both UOs in orthotopic position. A 5-Czech [place] was then easily passed into the left ureteral orifice. A retrograde pyelogram wasperformed which showed no filling defects or hydronephrosis. It ultimately drained its contrast by the end of the case (<10 minutes). A 5-Czech Pollack was then easily passed into the right ureteral orifice. A retrograde pyelogram was performed which showed no filling defects or hydronephrosis. Itultimately drained its contrast as well by the end of the case (<10 minutes). The bladder was then emptied and the cystoscope was withdrawn. The patient tolerated the entire procedure and was awoken from anesthesia in stable condition. Dr. Galvin, the attending surgeon, was present and scrubbed for the procedure. Dayan Schneider MD Associated attestation - Meghana Galvin Jr., MD - 10/28/2021 3:35 PM EDT Attestation: Case Date: 10/27/2021 I was present and I participated during the entire procedure. MEGHANA GALVIN JR, MD 10/28/2021 documented in this encounter Plan of Treatment Upcoming Encounters Date Type Specialty Care Team Description 03/15/2022 Office Visit Neurology Ryann Barfield APRN [facility] [place], [place] [address] 03/23/2022 Appointment Radiology Hailey Mcclendon MD [facility] [address] [place] [address] 03/23/2022 Laboratory Appointment Lab 03/23/2022 Office Visit Gastroenterology Hailey Mcclendon MD [facility] [address] [place] [address] 05/23/2022 Procedure visit Maxillofacial Surgery Corby Montes MD [facility] [address] [place] [address] Scheduled Orders Name Type Priority Associated Diagnoses Order S chedule US Retroperitoneal Complete Imaging Routine Renal calculu s, left Expected: 12/26/2021 (Approximate), Expires: 2021 documented as of this encounter Goals Goal Patient Goal Associated Recent Patient-Stated? Author Type Problems Progress meal Lifestyle Not on track No Jeet, timing/food (08/26/2020 Iman Ray, ilda 9:40 AM EST) [employer] Note: Formatting of this note might be d ifferent from the original. Try tracking using my fitnesspal or note book Use your date book to keep track of thin gs you need to do to improve your health. Meal timing: consider eating biggest troy l mid day, shot man dinner, try not to eat after dinner-try [...] or 1 c up Low fat plain Amharic Yogurt or 3 eggs or 3 ounces of meat 3. Restart Protien shakes using Unsweete mariam Teague Milk 4. Consider Meal replacements such as Le na Cuisine or Healthy Choice (read label to reach 20 grams of protein) 5. Keep hard boiled eggs on hand 6. Aim for reducing fruit intake to 2 se rvings/day 1. Consider Investigating Deepka Stephanie 'What are you hungry for? 2. Restart Protien shakes using Unsweete mariam Teague Milk 3. When you feel well enough, boil a doz en hard boiled eggs Other (Enter personal goal) Lifestyle No Shaila Duffy I, RD Note: Formatting of this note might be d ifferent from the original. Nutrition Goals: 1. Consider Investigating Salena Brown 'What are you hungry for? 2. Restart Protien shakes using Unsweete mariam Teague Milk 3. When you feel well enough, boil a doz en hard boiled eggs documented as of this encounter Procedures Procedure Name Priority Date/Time Associated Comments Diagnosis XR FLUORO NO RAD <1HR - OR Routine 10/27/2021 5:22 Results for this USE PM EDT procedure are i n the results section. CYSTO, RETROGRADE, 10/27/2021 4:20 BILATERAL RENAL URETEROPYELOGRAPHY (WRVU PM EDT STONES 2.37) POCT GLUCOSE Routine 10/27/2021 3:32 Results for this PM EDT procedure are i n the results section. documented in this encounter Results XR Fluoro No Rad <1Hr - OR Use (10/27/2021 5:22 PM EDT) Specimen (Source) Anatomical Location Collection Method / Collectio n Time Received Time / Laterality Volume Narrative Dicom, Auditing User - 10/27/2021 5:22 P M EDT This exam is auto-finalizing. No interpr etation was done. Meghana Galvin Jr., MD IMG FLUORO ORDERABLES POCT Glucose (10/27/2021 3:32 PM EDT) P athologist Signature POC Glucose 141 65 - 199 [facility] mg/dL [facility] Comment: Supplemental ranges: <140 mg/dL before meals <180 mg/dL all other times of the day Specimen Anatomical Collection Method Collection Time Receive d Time (Source) Location / / Volume Laterality Blood 10/27/2021 3:32 PM 3:32 EDT PM EDT Meghana Galvin Jr., MD POINT OF CARE TEST ORDERABLE S Performing Organization Address City/State/[place] [address] documented in this encounter Visit Diagnoses Not on filedocumented in this encounter Administered Medications Inactive Administered Medications - up to 3 most recent administrations Medication Order MAR Action Action Date Dose Rate Site acetaminophen (Tylenol) tablet 975 Given 10/27/2021 5:39 PM EDT 975 mg mg 975 mg, Oral, EVERY 4 HOURS PRN, Starting on Arni 10/27/21 at 1731, Until Arin 10/27/21 at 2119, Pain, Maximum dose of acetaminophen is 4000 mg from all sources in 24 hours. When ordered for pain, acetaminophen should be given even when other ordered pain medications are indicated. , Routine iohexoL (Omnipaque) (300 Given 10/27/2021 5:27 PM EDT 50 mLs 19- Surgical Site mg/mL) solution ONCE PRN, Starting on Arin 10/27/21 at 1702, Until Arin 10/27/21 at 2119, Intra-Operative (Intra-Procedure), Routine Given 10/27/2021 5:02 PM EDT 30 mLs 19- S urgical Site documented in this encounter Active and Recently Administered Medications Times are shown in EDT. Scheduled Medication Order 10/25/2021 10/26/2021 10/27/2021 gentamicin (Garamycin) 466.4 mg in sodium chloride 0.9% 111.66 m L infusion 1615 (Due) 466.4 mg (rounded from 466.5 mg = 5 mg/k g/dose ? 93.3 kg Adjusted weight), Intravenous, PROOFSHEET CORRECTOR TO O.R., 1 dose, On Arin 10/27/21 at 1615, Administer over 60 Minutes, This medication may have an associate d drug lab level. Please check for lab o rders. Warning Vesicant/Irritant Medication , Indication for (Active or Suspected): Prophylaxis Continuous Medication Order 10/25/2021 10/26/2021 10/27/2021 lactated ringers infusion (CANCELED) 1619 (New Bag - Provider: Caridad Reddy)1717 (Anesthesia Volume Adjustment - Provider: Caridad Reddy) 1,000 mL, at 100 mL/hr, Intravenous, CON TINUOUS, Starting on Arin 10/27/21 at 1630, Until Arin 10/27/21 at 1832, Day of Surgery (Day of Procedure) PRN Medication Order 10/25/2021 10/26/2021 10/27/2021 acetaminophen (Tylenol) tablet 975 mg 1739 (Given - Provider: Lonnie Moura RN) 975 mg, Oral, EVERY 4 HOURS PRN, Startin g on Arin 10/27/21 at 1731, Until Arin 10/27/21 at 2119, Pain, Maximum dose of acetaminophen is 4000 mg from all sources in 24 hours. When ordered for pain, acetaminoph en should be given even when other order ed pain medications are indicated. , Routine iohexoL (Omnipaque) (300 mg/mL) solution (CANCELED) 1702 (Given - Provider: Meghana Galvin Jr., MD)1727 (Given - Provider: Meghana Galvin Jr., MD) ONCE PRN, Starting on Arin 10/27/21 at 1702 , Until Arin 10/27/21 at 2119, Intra- Operative (Intra-Procedure), Routine documented in this encounter Care Teams Automobile Mechanic Motor Relationship Specialty Start Date End Date Trev Burr MD PCP - General Emergency Medicine 10/27/21 [address] [place] [address] documented as of this encounter
--- OUTSIDE RECORDS SUMMARY | 2022-02-08 01:49 | XMS_ITS | Encounter Summary ---
:1960 Author Organization [facility] Address [facility] [place] [address] Care Team Providers Name Role Phone Albert Zuleta MD Primary Care Provider Encounter Details Date Type Department Care Team Description 06/21/2021 TH Visit Cardiology at [facility] Dadekian, Cardiomyopathy, unspecified type; (TeleHealth) [facility] Joni Akhtar MD Palpitations; [facility] ASCVD (arteriosclerotic card iovascular disease); [place], [place] Center Essential hypertension [id number] Cardiology [phone] [place] [address] Social History Tobacco Use Types Packs/Day Years [...] PM EST documented as of this encounter Patient Instructions Patient InstructionsDaJoni rubio MD - 06/21/2021 1:20 PM EST Definitely needs a 40 min appt documented in this encounter Progress Notes Joni Drew MD - 06/21/2021 1:20 PM EST Cardiology Clinic Note CC: CHF Patient Name: Blossom Samayoa HPI: 60 yr old woman with a medical history notable for non-ischemic cardiomyopathy, HTN, MOSES on CPAP, COPD, diabetes, IBS, nephrolithiasis, hyperparathyroidism s/p parathyroidectomy, and an abdominal wall hernia s/p surgical repair. States that she is feeling good currently. Had a Holter for palpitations back in February. The symptoms she experienced and described previously have essentially resolved. Admits that she still experiences dyspnea with exertion. She states that this has been going on for 1-2 years now. Notices that I get winded quickly. At our last visit, she reported that she had gained 55 lbs over the prior year. Has gained 6 lbs since our last visit and is now up to 325 lbs. States: I know my weight has a lot to do with it. Uses a rolling walker and struggles a bit with mobility. Also has significant stress related to her living situation. Spent the past 5 months without a refrigerator. Denies orthopnea, PND, edema. 6 lb weight gain over the past 6 months. Social Hx: - Lives in [place], [place] - Tobacco: Former smoker; quit 2017 - EtOH: Never Family Hx: - Reviewed Patient Active Problem List Diagnosis Code ??? 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 Cirrhosis K74.60 Current Outpatient Medications: ??? HYDROcodone-acetaminophen 5-325 mg Tablet, hydrocodone-acetaminophen 5/325mg- 1-2 tab daily PRN,Disp: , Rfl: ??? umeclidinium (Incruse Ellipta) 62.5 mcg/actuation Disk with Device, Incruse Ellipta 1 puff daily, Disp: , Rfl: ??? LEVALBUTEROL TARTRATE INHL, levalbuterol tartrate 1 puff daily PRN, Disp: , Rfl: ??? clotrimazole-betamethasone (LOTRISONE) 1-0.05 % Cream, Apply topically., Disp: , Rfl: ??? glipizide/metformin HCl (GLIPIZIDE-METFORMIN ORAL), glipizide-metformin 500mg, 2 tabs BID, Disp:, Rfl: ??? NovoLOG Flexpen U-100 Insulin Insulin Pen, INJECT 15 30 UNITS SUBCUTANEOUSLY THREE TIMES A DAY WITH MEALS, Disp: , Rfl: ??? tiotropium (Spiriva with HandiHaler) 18 mcg Capsule, w/Inhalation Device, Inhale 1 capsule into the lungs., Disp: , Rfl: ??? metFORMIN (Glucophage) 500 mg Tablet, Take 500 mg by mouth daily., Disp: , Rfl: ??? insulin glargine,hum.rec.anlog (BASAGLAR KWIKPEN U-100 INSULIN SUBQ), Inject 56 Units subcutaneously nightly., Disp: , Rfl: ??? multivitamin (THERAGRAN) Tablet, Take 1 tablet by mouth daily., Disp: , Rfl: ??? carvediloL (Coreg) 25 mg Tablet, Take 12.5 mg by mouth 2 times daily (with meals). Take one halftablet by mouth two times daily., Disp: , Rfl: ??? Trulicity 1.5 mg/0.5 mL Pen Injector, , Disp: , Rfl: ??? amitriptyline (Elavil) 50 mg Tablet, Take 50 mg by mouth nightly., Disp: , Rfl: ? ? lactobacillus acidophilus & bulgar 1 million cell Tablet, Chewable, CHEW ONE TABLET BY MOUTHEVERY DAY, Disp: , Rfl: ??? ibuprofen (Advil;Motrin) 600 mg Tablet, Take 1 tablet by mouth every 6 hours as needed for Pain., Disp: 30 tablet, Rfl: 12 ??? acetaminophen (TYLENOL) 500 mg Tablet, Take 1,000 mg by mouth every 6 hours as needed for Pain.,Disp: , Rfl: ??? cholestyramine (QUESTRAN) 4 gram Powder, Take by mouth 2 times daily (with meals)., Disp: , Rfl: ??? acyclovir (ZOVIRAX) 5 % Ointment, Apply 1 each topically every 3 hours., Disp: , Rfl: ??? valACYclovir (VALTREX) 1 gram Tablet, TAKE ONE TABLET BY MOUTH EVERY DAY NEEDED, Disp: , Rfl:1 ??? nitroGLYcerin (NITROSTAT) 0.4 mg Tablet, Sublingual, Place 0.4 mg under the tongue every 5 minutes as needed for Chest pain., Disp: , Rfl: ??? diclofenac (VOLTAREN) 1 % Gel, Apply topically 4 times daily as needed., Disp: , Rfl: ??? atorvastatin (LIPITOR) 10 mg Tablet, Take 10 mg by mouth daily., Disp: , Rfl: ??? dulaglutide (TRULICITY SUBQ), Inject subcutaneously once a week., Disp: , Rfl: ??? aspirin 81 mg Tablet, Chewable, Take 81 mg by mouth daily., Disp: 30 tablet, Rfl: 3 ??? loratadine (CLARITIN) 10 mg Tablet, TAKE ONE TABLET BY MOUTH EVERY DAY NEEDED, Disp: , Rfl: 3 ??? gabapentin (NEURONTIN) 600 mg Tablet, 600 mg 4 times daily., Disp: , Rfl: 1 ??? spironolactone (ALDACTONE) 25 mg Tablet, TAKE ONE TABLET BY MOUTH EVERY DAY, Disp: , Rfl: 3 ??? lisinopril (PRINIVIL;ZESTRIL) 5 mg Tablet, TAKE ONE TABLET BY MOUTH DAILY, Disp: , Rfl: 3 EKG (08/28/2018): Sinus, LBBB, HR: 79 BPM Diagnostic Studies: ZIO (03/2021) There were 15 patient triggered timestamp which all corresponded to sinus rhythm with no ectopy. There was no supraventricular tachycardia, ventricular tachycardia pathologic pauses, or atrial fibrillation seen. Holter (03/2021) Indication: Palpitations ?? Duration 48 hours ?? Minimum heart rate 63 bpm, average heart rate 72 bpm, maximum heart rate 93 bpm ?? The predominant rhythm was normal sinus. There were rare ventricular and supraventricular ectopy present. There was no atrial fibrillation. There were no significant pauses. Left bundle branch block was noted. Symptoms of chest tightness correlated with normal sinus rhythm and left bundle branch block. ?? Impression: 1. Predominant rhythm is normal sinus with left bundle branch block. 2. Rare supraventricular and ventricular ectopy noted TTE (12/2019) 1. There is low normal global left ventricular systolic function. The quantitative left ventricular ejection fraction by biplane Harden's method is 54%. The basal anteroseptal, basal inferior, basal inferoseptal, mid anteroseptal, mid inferior, mid inferoseptal, apical septal, and apical inferior wall segments are akinetic (score 3). The apical anterior wall segment is hypokinetic (score 2). 2. Right ventricular global systolic function is normal. 3. Basal septal hypertrophy is observed. There is no evidence of LVOT obstruction. There is mild dilatation of the aortic root. 3.7 cm 4. No significant valvular disease. The aortic valve is tricuspid. The mitral valve leaflets are mildly thickened. There is posterior mitral annular calcification. The mean gradient across the mitral valve is 3 mmHg. at 79 BPM. 5. The pericardium appears normal and there is no evidence of a pericardial effusion. Pulmonary artery hypertension could not be assessed due to inadequate tricuspid regurgitation jet. 6. When compared to the prior 01/05/19 study, global LV function has improved (EF=30%-->54%), and the lateral and apical wall motion abnormalities have improved, with persistent septal wall motion abnormalities. TTE (12/2018) 1. Global left ventricular systolic function is moderately reduced. The quantitative left ventricular ejection fraction by biplane Harden's method is 30%. There are left ventricular segmental wall motion abnormalities present, as shown in the diagram below. 2. The right ventricle is normal in size. Right ventricular global systolic function is low normal. 3. There is no hemodynamically significant valve disease. 4. When compared with study dated 08/2018, there has been a significant decline in LV function with new wall motion abnormalities. 5. See remainder of report for additional findings. Cardiac Cath (08/2018) Conclusions: Nonobstructive coronary artery disease Nuclear Stress (08/2018) 1. Moderate ischemia of the anterior and anteroseptal wall, suggest LAD distribution disease. 2. No infarct. 3. Incidental CT findings as above. TTE (2009) 1. The left ventricle is mildly dilated. Global left ventricular systolic function is mildly reduced. Ejection fraction is estimated to be 45%. There is diffuse hypokinesis present. 2. Right ventricular chamber size, wall thickness, and systolic function are within normal limits. 3. There is no hemodynamically significant valve disease. 4. See remainder of report for additional findings. I have personally reviewed the above ECG & imaging studies ASSESSMENT: Ms. Samayoa is a very nice 60 yr old woman with morbid obesity, nonischemic cardiomyopathy, hypertension, MOSES, COPD, diabetes, IBS, nephrolithiasis s/p ureteral stent, and abdominal wall abscess s/p long complicated hospitalization. We did a phone visit today for routine annual follow-up. In the interim since our last telephone visit, she had a Zio (1 day of data) and a 48 hr Holter, both of which were benign. Fortunately, her symptoms have essentially resolved. She does however continue to endorse dyspnea on exertion which is likely multifactorial in origin. Irecommended that she have a stress test which she prefers to have done closer to home. She is going to work with her PCP to get this ordered in [facility]. I do agree that her body habitus is part of the issue and that she would benefit from weight loss. I spoke with her about this issue and a referral to [facility]. She states that she has tried this before but it was not helpful and caused significant stress. Prefers to hold off on another referral but will reach out to me if she changes her mind. PLAN: # LIM, chronic, stable - has had sxs for years; no recent change - discussed a stress test; she wants her PCP to order this in [facility] which is fine - discussed weight loss and [facility] referral but she declined for now # Palpitations, improved/resolved - Zio and Holter were benign (see above) # Cardiomyopathy, non-ischemic - LVEF improved to 54%; was as low as 30% (12/2018) - Continue carvedilol 12.5 mg BID, lisinopril 5 mg daily, and spironolactone # ASCVD, non-obstructive - Continue atorvastatin, ASA # Hypertension, controlled - Will continue to monitor # Diabetes, insulin dependent Joni Drew MD, FACP, FACC Section of Cardiovascular Medicine [facility] Histologistcow tender [facility] [employer] [facility] documented in this encounter Plan of Treatment Upcoming Encounters Date Type Specialty Care Team Description 03/15/2022 Office Visit Neurology Ryann Barfield APRN [facility] [address] [place], [place] [address] 03/23/2022 Appointment Radiology Hailey Mcclendon MD [facility] [address] [place] [address] 03/23/2022 Laboratory Appointment Lab 03/23/2022 Office Visit Gastroenterology Hailey Mcclendon MD [facility] [address] [place] [address] 05/23/2022 Procedure visit Maxillofacial Surgery Corby Montes MD [facility] [address] [place] [address] documented as of this encounter Goals Goal Patient Goal Associated Recent Patient-Stated? Author Type Problems Progress meal Lifestyle Not on track No Jeet, timing/food (08/26/2020 ilda Solitario 9:40 AM EST) HAND DRILLER Note: Formatting of this note might be d ifferent from the original. Try tracking using my fitnesspal or note book Use your date book to keep track of thin gs you need to do to improve your health. Meal timing: consider eating biggest troy l mid day, process maintenance technician dinner, try not to eat after dinner-try [...] or 1 c up Low fat plain Maori Yogurt or 3 eggs or 3 ounces of meat 3. Restart Protien shakes using Unsweete mariam Galien Milk 4. Consider Meal replacements such as Le na Cuisine or Healthy Choice (read label to reach 20 grams of protein) 5. Keep hard boiled eggs on hand 6. Aim for reducing fruit intake to 2 se rvings/day 1. Consider Investigating Deepka Stephanie 'What are you hungry for? 2. Restart Protien shakes using Unsweete mariam Galien Milk 3. When you feel well enough, boil a doz en hard boiled eggs Other (Enter personal goal) Lifestyle No Shaila Duffy I, RD Note: Formatting of this note might be d ifferent from the original. Nutrition Goals: 1. Consider Investigating Deepka Stephanie 'What are you hungry for? 2. Restart Protien shakes using Unsweete mariam Galien Milk 3. When you feel well enough, boil a doz en hard boiled eggs documented as of this encounter Visit Diagnoses Diagnosis Cardiomyopathy, unspecified type Palpitations ASCVD (arteriosclerotic cardiovascular d isease) Unspecified cardiovascular disease Essential hypertension Unspecified essential hypertension documented in this encounter Care Teams Mushroom Press Operator Relationship Specialty Start Date End Date Albert Zuleta MD PCP - General Family Medicine 01/17/17 10/26/21 [place] [address] documented as of this encounter
--- OUTSIDE RECORDS SUMMARY | 2022-02-08 01:49 | XMS_ITS | Encounter Summary ---
:1960 Author Organization [facility] [place] [address] Care Team Providers Name Role Phone Albert Zuleta MD Primary Care Provider Encounter Details Date Type Department Care Team Description 03/10/2021 Orders Only Cardiology at [facility] Joni Drew Palpitations (Primary [facility] MD Hermilo [place]) [place] [address] Cardiology [phone] [place], [place] [address] Social History Tobacco Use Types [...] 03/15/2022 Office Visit Neurology Ryann Barfield, SHMUEL [facility] [address] [place], [place] [address] 03/23/2022 Appointment Radiology Hailey Mcclendon MD [facility] [place] [address] 03/23/2022 Laboratory Appointment Lab 03/23/2022 Office Visit Gastroenterology Hailey Mcclendon MD [facility] [address] [place] [address] 05/23/2022 Procedure visit Maxillofacial Surgery Corby Montes MD [facility] [address] [place] [address] documented as of this encounter Goals [...] consider eating biggest troy l mid day, blueprint trimmer dinner, try not to eat after dinner-try [...] Lifestyle On track (08/26/2020 9:43 AM EST) Iman Hannon APRN Note: Formatting [...] or 1 c up Low fat plain Andorran Yogurt or 3 eggs or 3 ounces of meat 3. Restart Protien shakes using Unsweete mariam [place] Milk 4. Consider Meal replacements such as Le na Cuisine or Healthy Choice (read label to reach 20 grams of protein) 5. Keep hard boiled eggs on hand 6. Aim for reducing fruit intake to 2 se rvings/day 1. Consider Investigating Deepka Stephanie 'What are you hungry for? 2. Restart Protien shakes using Unsweete mariam [place] Milk 3. When you feel well enough, boil a doz en hard boiled eggs Other (Enter personal goal) Lifestyle No Shaila Duffy RD Note: Formatting of this note might be d ifferent from the original. Nutrition Goals: 1. Consider Investigating Deepka Stephanie 'What are you hungry for? 2. Restart Protien shakes using Unsweete mariam [place] Milk 3. When you feel well enough, boil a doz en hard boiled eggs documented as of this encounter Results Holter Monitor 48hr (03/17/2021 2:27 PM EDT) Component Value Ref Test Analysis Performed Pathologis t Range Method Time At Signature Hookup Date [id number] HEARTLAB SYSTEM Hookup Time HEARTLAB SYSTEM Acquisition [id number] S HEARTLAB Duration SYSTEM #QRS COMPLEXES [id number] HEARTLAB SYSTEM # OF VENTRICULAR 18 HEARTLAB ECTOPICS SYSTEM # OF VENTRICULAR 0 HEARTLAB BIGEMINAL CYCLES SYSTEM # OF VENTRICULAR 0 HEARTLAB COUPLETS SYSTEM # OF 25 HEARTLAB SUPRAVENTRICULAR SYSTEM ECTOPICS # OF 21 HEARTLAB SUPRAVENTRICULAR SYSTEM ISOLATED BEATS # OF 0 HEARTLAB SUPRAVENTRICULAR SYSTEM COUPLETS Avg. Heart Rate 72 BPM HEARTLAB SYSTEM Max. Heart Rate 93 BPM HEARTLAB SYSTEM Min. Heart Rate 63 BPM HEARTLAB SYSTEM Max. Heart Rate [id number] HEARTLAB Time/Date SYSTEM Min. Heart Rate [id number] HEARTLAB Time/Date SYSTEM INTERPRETATION 03/29/2021 HEARTLAB SYSTEM Barbara Josue Specimen (Source) Anatomical Collection Method Collection Time Re ceived Time Location / / Volume Laterality 03/17/2021 2:21 PM EDT Narrative HEARTLAB SYSTEM - 03/30/2021 8:20 AM EDT Indication: Palpitations Duration 48 hours Minimum heart rate 63 bpm, average heart rate 72 bpm, maximum heart rate 93 bpm The predominant rhythm was normal sinus. There were rare ventricular and supraventricular ectopy present. ??There was no atrial fibrillation. There were no significant pauses. Left bundle branch block was noted. Symptoms of chest tightness correlated with cory l sinus rhythm and left bundle branch block. Impression: 1. Predominant rhythm is normal sinus wi th left bundle branch block. 2. Rare supraventricular and ventricular ectopy noted Joni Drew MD CARDIAC SERVICES ORDERABLES Performing Organization Address City/State/ZIP Code Phon e Number [facility] documented in this encounter Visit Diagnoses Diagnosis Palpitations - Primary Palpitations documented in this encounter Care Teams Roll Mechanic Relationship Specialty Start Date End Date Albert Zuleta MD PCP - General Family Medicine 01/17/17 10/26/21 [facility] [place] [address] documented as of this encounter
--- OUTSIDE RECORDS SUMMARY | 2022-02-08 01:49 | XMS_ITS | Encounter Summary ---
:1960 Author Organization [facility] [place] [address] Care Team Providers Name Role Phone Albert Zuleta MD Primary Care Provider Encounter Details Date Type Department Care Team Description 09/21/2021 Ancillary Procedure Radiology Library at Albert Zuleta MD [address] [facility] [address] [place] [address] [phone] Social History Tobacco Use Types Packs/Day Years [...] Description 03/15/2022 Office Visit Neurology Ryann Barfield, PHARMACOGNOSIST [facility] [address] [place], [place] [address] 03/23/2022 Appointment Radiology Hailey Mcclendon MD [facility] [place] [address] 03/23/2022 Laboratory Appointment Lab 03/23/2022 Office Visit Gastroenterology Hailey Mcclendon MD [facility] [place] [address] 05/23/2022 Procedure visit Maxillofacial Surgery Corby Montes MD [facility] [address] [place] [address] documented as of this encounter Goals [...] consider eating biggest troy l mid day, nsh teacher dinner, try not to eat after dinner-try [...] or 1 c up Low fat plain [place] Island[place] Yogurt or 3 eggs or 3 ounces of meat 3. Restart Protien shakes using Unsweete mariam [place] Milk 4. Consider Meal replacements such as Le na Cuisine or Healthy Choice (read label to reach 20 grams of protein) 5. Keep hard boiled eggs on hand 6. Aim for reducing fruit intake to 2 se rvings/day 1. Consider Investigating Deepka Stephanie 'What are you hungry for? 2. Restart Protien shakes using Unsweete mariam [place] Milk 3. When you feel well enough, boil a doz en hard boiled eggs Other (Enter personal goal) Lifestyle No Shaila Duffy RD Note: Formatting of this note might be d ifferent from the original. Nutrition Goals: 1. Consider Investigating Deepka Stephanie 'What are you hungry for? 2. Restart Protien shakes using Unsweete mariam [place] Milk 3. When you feel well enough, boil a doz en hard boiled eggs documented as of this encounter Procedures Procedure Name Priority Date/Time Associated Diagnosis Comme nts FILM LIBRARY Routine 09/21/2021 1:40 PM Results f or this STORAGE ONLY CT EST procedure ar e in ABDOMEN AND PELVIS the resul ts section. documented in this encounter Results Film Library- Storage Only CT Abdomen & Pelvis (09/21/2021 1:40 PM EST) Specimen (Source) Anatomical Location Collection Method / Collectio n Time Received Time / Laterality Volume Narrative [facility] - 09/21/2021 1:40 PM EST This exam is auto-finalizing. It's purpo se is for storage only. Albert Zuleta MD IMG FILM LIBRARY ORDERABLES Performing Organization Address City/State/ZIP Code Phon e Number [facility] [place], [place] documented in this encounter Visit Diagnoses Not on filedocumented in this encounter Care Teams Greens Picker Relationship Specialty Start Date End Date Albert Zuleta MD PCP - General Family Medicine 01/17/17 10/26/21 [address] [place] [address] documented as of this encounter
--- OUTSIDE RECORDS SUMMARY | 2022-02-08 01:49 | XMS_ITS | Encounter Summary ---
:1960 Author Organization [facility] [place] [address] Care Team Providers Name Role Phone Trev Burr MD Primary Care Provider Encounter Details Date Type Department Care Team Description 09/09/2021 Telephone [place] [facility] Crow Galvin Jr., MD [facility] [place] [address] UROLOGY DEPT. [phone] [place], [place] [address] (Wo rk) Social History Tobacco Use Types Packs/Day Years [...] this encounter Miscellaneous Notes Telephone Encounter - Feliz Ponce - 09/09/2021 4:32 PM EST Patient calling, she had an appointment at the local hospital where she had her Urine culture and they went over the results with her and they treated her with cephalexin for 10days. She is just not feeling good and bleeds everytime she urinates. Patient keeps having fevers of 100-101 everyday. PHONE: [phone] documented in this encounter Plan of Treatment Upcoming Encounters Date Type Specialty Care Team Description 03/15/2022 Office Visit Neurology Ryann Barfield APRN [facility] [place] [address] 03/23/2022 Appointment Radiology Hailey Mcclendon MD [facility] [address] [place] [address] 03/23/2022 Laboratory Appointment Lab 03/23/2022 Office Visit Gastroenterology Hailey Mcclendon MD [facility] [address] [place] [address] 05/23/2022 Procedure visit Maxillofacial Surgery Corby Montes MD [facility] [address] [place] [address] documented as of this encounter Goals Goal Patient Goal Associated Recent Patient-Stated? Author Type Problems Progress meal Lifestyle Not on track No Jeet, timing/food (08/26/2020 ilda Solitario 9:40 AM EST) HUMANITIES PROFESSOR Note: Formatting of this note might be d ifferent from the original. Try tracking using my fitnesspal or note book Use your date book to keep track of thin gs you need to do to improve your health. Meal timing: consider eating biggest troy l mid day, direct support professional caregiver dinner, try not to eat after dinner-try [...] or 1 c up Low fat plain Korean Yogurt or 3 eggs or 3 ounces of meat 3. Restart Protien shakes using Unsweete mariam [place] Milk 4. Consider Meal replacements such as Le na Cuisine or Healthy Choice (read label to reach 20 grams of protein) 5. Keep hard boiled eggs on hand 6. Aim for reducing fruit intake to 2 se rvings/day 1. Consider Investigating Deepka Stephanie 'What are you hungry for? 2. Restart Protien shakes using Unsweete mariam [place] Milk 3. When you feel well enough, boil a doz en hard boiled eggs Other (Enter personal goal) Lifestyle No Shaila Duffy RD Note: Formatting of this note might be d ifferent from the original. Nutrition Goals: 1. Consider Investigating Deepka Stephanie 'What are you hungry for? 2. Restart Protien shakes using Unsweete mariam [place] Milk 3. When you feel well enough, boil a doz en hard boiled eggs documented as of this encounter Visit Diagnoses Not on filedocumented in this encounter Care Teams Financial Aid Director Relationship Specialty Start Date End Date Trev Burr MD PCP - General Emergency Medicine 10/27/21 [address] [place] [address] documented as of this encounter
--- OUTSIDE RECORDS SUMMARY | 2022-02-08 01:49 | XMS_ITS | Encounter Summary ---
:1960 Author Organization [facility] [place] [address] Care Team Providers Name Role Phone Albert Zuleta MD Primary Care Provider Encounter Details Date Type Department Care Team Description 10/24/2021 Telephone Urology at [facility] Crow Galvin Jr., [place] [address] UROLOGY DEPT. [phone] [place], [place] [address] (Wo rk) Social History Tobacco [...] this encounter Miscellaneous Notes Telephone Encounter - Viky Saleh RN - 10/24/2021 1:59 PM EDT I returned Ariane's call at [facility]. She gave a verbal critical report on this patient's urine culture. >100,000 Klebsiella pneum. ESBL I asked Ariane to fax the results to our office. Telephone Encounter - Feliz Ponce - 10/24/2021 1:47 PM EDT Ariane calling from [facility] Lab, needs to speak with a nurse to discuss critical results from a Urine culture patient has done. PHONE: [phone] documented in this encounter Plan of Treatment Upcoming Encounters Date Type Specialty Care Team Description 03/15/2022 Office Visit Neurology Ryann Barfield APRN [facility] [address] [place] [address] 03/23/2022 Appointment Radiology Hailey Mcclendon MD [facility] [address] [place] [address] 03/23/2022 Laboratory Appointment Lab 03/23/2022 Office Visit Gastroenterology Hailey Mcclendon MD [facility] [place] [address] 05/23/2022 Procedure visit Maxillofacial Surgery Corby Montes MD 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 Try just getting up at least once an luda r Recommend resistance training 3 times a week -can use your weights- 08/26/20- not on track with this, will work on it. sleep Lifestyle On track (08/26/2020 9:43 AM EST) No Iman Marcano, REFRIGERATING ENGINEER Note: Formatting of this note might be d ifferent from the original. Try to be consistent with sleep. Goal 7 hours of sleep nightly. Recommend consistent sleep and wake time s, avoid electronics within one hour of sleep time Continue C pap stress Lifestyle On track (08/26/2020 9:40 AM EST) No Iman Marcano, REFRIGERATING ENGINEER Note: Formatting of this note might be [...] or 1 c up Low fat plain Spanish Yogurt or 3 eggs or 3 ounces of meat 3. Restart Protien shakes using Unsweete mariam [place] Milk 4. Consider Meal replacements such as Le na Cuisine or Healthy Choice (read label to reach 20 grams of protein) 5. Keep hard boiled eggs on hand 6. Aim for reducing fruit intake to 2 se rvings/day 1. Consider Investigating Deepka Stephanie 'What are you hungry for? 2. Restart Protien shakes using Unsweete mariam [place] Milk 3. When you feel well enough, boil a doz en hard boiled eggs Other (Enter personal goal) Lifestyle No Shaila Duffy I, RD Note: Formatting of this note might be d ifferent from the original. Nutrition Goals: 1. Consider Investigating Salena Brown 'What are you hungry for? 2. Restart Protien shakes using Unsweete mariam [place] Milk 3. When you feel well enough, boil a doz en hard boiled eggs documented as of this encounter Visit Diagnoses Not on filedocumented in this encounter Care Teams Healthcare Marketer Relationship Specialty Start Date End Date Albert Zuleta MD PCP - General Family Medicine 01/17/17 10/26/21 [address] [place] [address] documented as of this encounter
--- OUTSIDE RECORDS SUMMARY | 2022-02-08 01:49 | XMS_ITS | Encounter Summary ---
:1960 Author Organization [facility] [place] [address] Care Team Providers Name Role Phone Albert Zuleta MD Primary Care Provider Encounter Details Date Type Department Care Team Description 08/23/2021 Notes Only Urology at [facility] [place] [address] Social History Tobacco Use Types Packs/Day [...] documented as of this encounter Progress Notes Tamela Lr LNA - 08/23/2021 12:00 PM EST Spoke to patient and pre Dr. Tomi FERNANDEZ x7days and sent to preferred pharmacy documented in this encounter Plan of Treatment Upcoming Encounters Date Type Specialty Care Team Description 03/15/2022 Office Visit Neurology Ryann Barfield APRN [facility] [place] [address] 03/23/2022 Appointment Radiology Hailey Mcclendon MD [facility] [address] [place] [address] 03/23/2022 Laboratory Appointment Lab 03/23/2022 Office Visit Gastroenterology Hailey Mcclendon MD [facility] [address] [place] [address] 05/23/2022 Procedure visit Maxillofacial Surgery Corby Montes MD [facility] [address] [place] [address] documented as of this encounter Goals [...] your health. 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 Restart Protien shakes using Unsweete mariam [place] Milk 4. Consider Meal replacements such as Le na Cuisine or Healthy Choice (read label to reach 20 grams of protein) 5. Keep hard boiled eggs on hand 6. Aim for reducing fruit intake to 2 se rvings/day 1. Consider Investigating Deepka Stephanie 'What are you hungry for? 2. Restart Protien shakes using Unsweete mariam [place] Milk 3. When you feel well enough, boil a doz en hard boiled eggs Other (Enter personal goal) Lifestyle No Shaila Duffy RD Note: Formatting of this note might be d ifferent from the original. Nutrition Goals: 1. Consider Investigating Deepka Stephanie 'What are you hungry for? 2. Restart Protien shakes using Unsweete mariam [place] Milk 3. When you feel well enough, boil a doz en hard boiled eggs documented as of this encounter Visit Diagnoses Not on filedocumented in this encounter Care Teams Inorganic Chemical Technician Relationship Specialty Start Date End Date Albert Zuleta MD PCP - General Family Medicine 01/17/17 10/26/21 [address] [place] [address] documented as of this encounter
--- OUTSIDE RECORDS SUMMARY | 2022-02-08 01:49 | XMS_ITS | Encounter Summary ---
:1960 Author Organization [facility] [place] [address] Care Team Providers Name Role Phone Albert Zuleta MD Primary Care Provider Reason for Referral Diagnostic Test (Routine) - Closed Specialty Diagnoses / Procedures Referred By Contact Refer red To Contact Cardiology Diagnoses Palpitations Joni Drew MD [facility] Non-Inv Card Lab Procedures Ziopatch 48 Hrs-15 Days [facility] [place] [place] [address] [place] [address] Referral ID Status Reason Start Date Expiration Date Visits V isits Requested Authorized [id number] Closed Specialty 02/23/2021 07/22/2021 1 1 Service Requested Reason for Visit Diagnostic Test (Routine) - Closed Specialty Diagnoses / Procedures Referred By Contact Refer red To Contact Cardiology Diagnoses Palpitations Joni Drew MD [facility] Non-Inv Card Lab Procedures Ziopatch 48 Hrs-15 Days [facility] [place] [address] [place] [address] Referral ID Status Reason Start Date Expiration Date Visits V isits Requested Authorized [id number] Closed Specialty 02/23/2021 07/22/2021 1 1 Service Requested Encounter Details Date Type Department Care Team Description 02/24/2021 Hospital Encounter Non-Invasive Cardiology [facility] Palpitations Lab Hailey Akhtar MD [facility] [place] [address] [place] [address] [phone] (Wo rk) Social History Tobacco Use Types Packs/Day Years Used Date Former Smoker Cigarettes 30 Quit: 07/23/19 16 Smokeless Tobacco: Never [...] PM EST documented as of this encounter Medications at Time of Discharge Medication Sig Dispensed Refills Start Date End Date HYDROcodone-acetaminoph hydrocodone-acetaminophen 0 en 5-325 mg Tablet [...] (Coreg) 25 Take 12.5 mg by mouth 0 mg Tablet 2 times daily (with meals). Take one half [...] (Advil;Motrin) 600 mg every 6 hours as Tablet needed for Pain. acetaminophen (TYLENOL) Take 1,000 mg [...] pain. diclofenac (VOLTAREN) 1 Apply topically 4 0 % Gel times daily as needed. atorvastatin (LIPITOR) Take 10 [...] 03/09/2018 (PRINIVIL;ZESTRIL) 5 mg MOUTH DAILY Tablet glipizide/metformin HCl glipizide-metformin 0 10/26/2021 (GLIPIZIDE-METFORMIN 500mg, 2 tabs BID ORAL) documented as of this encounter Plan of Treatment Upcoming Encounters Date Type Specialty Care Team Description 03/15/2022 Office Visit Neurology Ryann Barfield APRN [facility] [address] [place] [address] 03/23/2022 Appointment Radiology Hailey Mcclendon MD [facility] [address] [place] [address] 03/23/2022 Laboratory Appointment Lab 03/23/2022 Office Visit Gastroenterology Hailey Mcclendon MD [facility] [address] [place] [address] 05/23/2022 Procedure visit Maxillofacial Surgery Corby Montes MD [facility] [address] [place] [address] documented as of this encounter Goals Goal Patient Goal Associated Recent Patient-Stated? Author Type Problems Progress meal Lifestyle Not on track Sandra Marcano, timing/food (08/26/2020 ilda Solitario 9:40 AM EST) SHMUEL Note: Formatting of this note might be d ifferent from the original. Try tracking using my fitnesspal or note book Use your date book to keep track of thin gs you need to do to improve your health. Meal timing: consider eating biggest troy l mid day, human resources benefits assistant dinner, try not to eat after dinner-try [...] or 1 c up Low fat plain Nepali Yogurt or 3 eggs or 3 ounces of meat 3. Restart Protien shakes using Unsweete mariam [place] Milk 4. Consider Meal replacements such as Le na Cuisine or Healthy Choice (read label to reach 20 grams of protein) 5. Keep hard boiled eggs on hand 6. Aim for reducing fruit intake to 2 se rvings/day 1. Consider Investigating Deepka Stephanie 'What are you hungry for? 2. Restart Protien shakes using Unsweete mariam [place] Milk 3. When you feel well enough, boil a doz en hard boiled eggs Other (Enter personal goal) Lifestyle No Shaila Duffy RD Note: Formatting of this note might be d ifferent from the original. Nutrition Goals: 1. Consider Investigating Deepka Stephanie 'What are you hungry for? 2. Restart Protien shakes using Unsweete mariam [place] Milk 3. When you feel well enough, boil a doz en hard boiled eggs documented as of this encounter Procedures Procedure Name Priority Date/Time Associated Diagnosis Comme addie RAMÍREZ 48 HRS-15 Routine 02/24/2021 8:56 AM Palpitations Res ults for this DAYS EDT procedure are i n the results section. documented in this encounter Results Ziopatch 48 Hrs-15 Days (02/24/2021 8:56 AM EDT) Specimen (Source) Anatomical Location Collection Method / Collectio n Time Received Time / Laterality Volume Narrative Roberto Aguirre MD - 03/25/2021 6:40 PM EDT [facility] ? [facility] Monit or Report The study was ordered for evaluation of palpitations. ??There was 1 day and 11 hours worth of data. ??The predominan t rhythm was sinus rhythm ranging from 59 to 95 bpm with an average heart rate of 68. There were 15 patient triggered timestam p which all corresponded to sinus rhythm with no ectopy. There was no supraventricular tachycardi a, ventricular tachycardia pathologic pauses, or atrial fibrillatio n seen. Roberto Aguirre MD [facility] See link to pdf document of the primary data under Scans on Order below. Joni Drew MD [facility]ARD[facility] ORDERABLES documented in this encounter Visit Diagnoses Diagnosis Palpitations documented in this encounter Care Teams Refrigeration System Installer Relationship Specialty Start Date End Date Albert Zuleta MD PCP - General Family Medicine 01/17/17 10/26/21 [address] [place] [address] documented as of this encounter
--- OUTSIDE RECORDS SUMMARY | 2022-02-08 01:49 | XMS_ITS | Encounter Summary ---
:1960 Author Organization [facility] [place] [address] Care Team Providers Name Role Phone Albert Zuleta MD Primary Care Provider Encounter Details Date Type Department Care Team Description 09/12/2021 Orders Only Urology Cain, Lower urinary tract [facility] Marquis Zhou MD symptoms (LUTS) [facility] [place] Vo UROLOGY DEPT [address] [place] [address] [phone] (Wo rk) Social History Tobacco Use Types [...] Neurology Ryann Barfield, SHMUEL [facility] [address] [place] [place], [place] [address] 03/23/2022 Appointment Radiology Hailey Mcclendon MD [facility] [place] [address] 03/23/2022 Laboratory Appointment Lab 03/23/2022 Office Visit Gastroenterology Hailey Mcclendon MD [facility] [place] [address] 05/23/2022 Procedure visit Maxillofacial Surgery Corby Montes MD [facility] [address] [place] [address] documented as of this encounter Goals [...] consider eating biggest troy l mid day, central office operator dinner, try not to eat after dinner-try [...] On track (08/26/2020 9:43 AM EST) No Jeet, Iman L, INCLUSION MANAGER Note: Formatting of this note might [...] or 1 c up Low fat plain Indonesian Yogurt or 3 eggs or 3 ounces of meat 3. Restart Protien shakes using Unsweete mariam [employer] Milk 4. Consider Meal replacements such as Le na Cuisine or Healthy Choice (read label to reach 20 grams of protein) 5. Keep hard boiled eggs on hand 6. Aim for reducing fruit intake to 2 se rvings/day 1. Consider Investigating Deepka Stephanie 'What are you hungry for? 2. Restart Protien shakes using Unsweete mariam [employer] Milk 3. When you feel well enough, boil a doz en hard boiled eggs Other (Enter personal goal) Lifestyle No Shaila Duffy RD Note: Formatting of this note might be d ifferent from the original. Nutrition Goals: 1. Consider Investigating Deepka Stephanie 'What are you hungry for? 2. Restart Protien shakes using Unsweete mariam [employer] Milk 3. When you feel well enough, boil a doz en hard boiled eggs documented as of this encounter Visit Diagnoses Diagnosis Lower urinary tract symptoms (LUTS) Other symptoms involving urinary system documented in this encounter Care Teams Fiscal Services Manager Relationship Specialty Start Date End Date Albert Zuleta MD PCP - General Family Medicine 01/17/17 10/26/21 [address] [place] [address] documented as of this encounter
--- OUTSIDE RECORDS SUMMARY | 2022-02-08 01:49 | XMS_ITS | Encounter Summary ---
:1960 Author Organization [facility] [place] [address] Care Team Providers Name Role Phone Albert Zuleta MD Primary Care Provider Encounter Details Date Type Department Care Team Description 07/27/2021 Orders Only [place] [facility] [place]iley Mcclendon, Cirrhosis of liver [facility] Maciel lorenzana MD without ascites, [place] [address] [facility] Medical unspecified hepatic [phone] [place] [address] Social History Tobacco Use Types Packs/Day Years [...] Description 03/15/2022 Office Visit Neurology Ryann Barfield, FUELS ENGINEER [facility] NEUROLOGY [place], [place] [address] 03/23/2022 Appointment Radiology Hailey Mcclendon MD [facility] [address] [place] [address] 03/23/2022 Laboratory Appointment Lab 03/23/2022 Office Visit Gastroenterology Hailey Mcclendon MD [facility] [address] [place] [address] 05/23/2022 Procedure visit Maxillofacial Surgery Corby Montes MD 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 Restart Protien shakes using Unsweete mariam [place] Milk 4. Consider Meal replacements such as Le na Cuisine or Healthy Choice (read label to reach 20 grams of protein) 5. Keep hard boiled eggs on hand 6. Aim for reducing fruit intake to 2 se rvings/day 1. Consider Investigating Deepka Stephanie 'What are you hungry for? 2. Restart Protien shakes using Unsweete mariam [place] Milk 3. When you feel well enough, boil a doz en hard boiled eggs Other (Enter personal goal) Lifestyle No Shaila Duffy RD Note: Formatting of this note might be d ifferent from the original. Nutrition Goals: 1. Consider Investigating Deepka Stephanie 'What are you hungry for? 2. Restart Protien shakes using Unsweete mariam [place] Milk 3. When you feel well enough, boil a doz en hard boiled eggs documented as of this encounter Results AFP tumor marker (09/12/2021 1:44 PM EST) athologist Signature AFP 2.4 <=8.3 ng/mL [facility] Specimen Anatomical Collection Method Collection Time Receive d Time (Source) Location / / Volume Laterality Blood 09/12/2021 1:44 PM 2 2:22 EST PM EST Resulting Agency Comment Spec In Lab Hailey Mcclendon MD CHEMISTRY ORDERABLES Performing Organization Address City/[facility]/[place] [address] (ABNORMAL) Prothrombin Time (09/12/2021 1:44 PM EST) P athologist Signature PT 13.7 (H) 9.4 - 12.5 [facility] LABORATORY INR 1.2 [facility] Comment: An INR <2.0 indicates adequate procoagul ant activity for hemostasis in most patients without underlying bleeding dis orders, though the INR may not adequately reflect hemostatic capacity i n patients with liver disease and synthetic impairment. The recommended ta rget INR range for therapeutic anticoagulation is 2.0 ? 3.0 for most applications, though lower and higher ranges may be appropriate depending on c linical circumstances. Specimen Anatomical Collection Method Collection Time Receive d Time (Source) Location / / Volume Laterality Blood 09/12/2021 1:44 PM 2 2:48 EST PM EST Resulting Agency Comment Spec In Lab Hailey Mcclendon MD HEMATOLOGY ORDERABLES Performing Organization Address City/[facility]/[place] [address] (ABNORMAL) Comprehensive metabolic panel (non-fasting) (09/12/2021 1:44 PM EST) athologist Signature Glucose Lvl 115 65 - 199 [facility] mg/dL [facility] Comment: Diabetes: >=200 mg/dL plus symp toms BUN 15 8 - 18 mg/dL [facility] Creatinine 1.16 0.70 - 1.20 mg/dL [facility] Sodium 137 135 - 145 mmol/L [facility] Potassium 4.4 3.5 - 5.0 mmol/L [facility] Comment: Please note: ??Patients with WBC >100,00 0 may have falsely elevated Potassium levels. ??For accurate Potassium quantif ication in these patients send serum separator tube (gold top) for subsequent determinations. ??Contact the Clinical Chemistry Laboratory if there are any qu estions. Chloride 107 98 - 107 mmol/L [facility] CO2 12 (L) 22 - 31 mmol/L [facility] Anion Gap 18 (H) 5 - 15 mmol/L [facility] Calcium 9.5 8.5 - 10.5 mg/dL [facility] Total Protein 8.0 6.1 - 8.0 g/dL [facility] Albumin 4.0 3.2 - 5.2 g/dL [facility] AST 31 (H) 0 - 30 unit/L [facility] ALT 17 0 - 30 unit/L [facility] Alk Phos 81 35 - 105 unit/L [facility] Total Bilirubin 1.0 0.2 - 1.3 mg/dL [facility] Estimated GFR 51 (L) >=60 mL/min/1.73 m?? [facility] Comment: This patient? s estimated glomerular filtration rate (eGFR) is between 51 mL/min/1.73 m2 (patients with less muscl e mass) and 59 mL/min/1.73 m2 (patients with more muscle mass) as determined by the CKD-EPI equation. Assessment of eGFR is not appropriate when creatinine concentrations are rapidly changing. For clinical decisions where creatinine clearance will affect therapy, a 24-hour urine creatinine clearance may b e advised. Assignment of CKD stage 1 - 5 for patien ts with an eGFR near the transition point between stages may be based on cli nical assessment of muscle mass and symptoms in addition to eGFR. Specimen Anatomical Collection Method Collection Time Receive d Time (Source) Location / / Volume Laterality Blood 09/12/2021 1:44 PM 2 2:22 EST PM EST Resulting Agency Comment Spec In Lab Hailey Mcclendon MD CHEMISTRY ORDERABLES Performing Organization Address City/State/ZIP [place] [address] US Abdomen Limited Hepatology Protocol (09/12/2021 12:59 PM EST) Anatomical Region Laterality Modality Abdomen Ultrasound Specimen (Source) Anatomical Collection Method Collection Time Re ceived Time Location / / Volume Laterality 09/12/2021 12:42 PM EST Impressions 09/12/2021 1:26 PM EST 1. The liver is quite large and diffuse ly, somewhat coarsely increased in echogenicity with capsular micronodular ity. The appearance suggests a combination of steatosis and cirrhosis. No focal hepatic lesions seen. 2. The main portal vein is patent with normal directional flow. No ascites. 3. Status post cholecystectomy. No bili carmela ductal dilatation. Electronically signed by: Sumanth treviño MD, Radiology [place] ([phone]), at 1:19 PM Thank you for letting us participate in the care of this patient. If you are a [facility] er and have any questions regarding this report, please contact the number above. For patients who have ques tions, please contact the [facility] that requested your imaging first. ? Sumanth Pitts, Staff Physician Electronically Signed Final Report ?? 01:26 pm Narrative 09/12/2021 1:26 PM EST Abdominal ? (Signed Final 09/12/2021 01:26 pm) PATIENT INFO: ID #: ? [id number] ?: ??[birth year] (60 yrs)(F) Name: ? BLOSSOM Ray ? Visit Date: 09/12/2021 12:42 pm ? TARA PERFORMED BY: Performed By: ? Dani Villalobos RDMS Attending: ?Gisselle RUIZ, Maurice n K. Resident: ? Kenneth RUIZ, [place] Referred By: ?HAILEY MCCLENDON Location: ? [place] SERVICE(S) PROVIDED: [facility] - Hepatology Protocol - Abdomin al ? [id number] Limited Survey Single Organ or Quadrant - [id number] INDICATIONS: cirrhosis, HCC screening COMPARISON: US: Hepatology 12/30/19 ------ LIVER: ------ Right Lobe Length: ?? 22.9 ?? cm Echogenicity/Echotexture: ?? Increased echogenicity. coarse ? with capsular nodularity Portal Veins: ?Hepatopetal Comment: ?No focal lesion seen. Hep atomegaly. GALLBLADDER: Focal Tenderness: ?Negative sonogra phic Perez's sign Comment: ?Surgically absent. BILIARY TRACT: Intrahepatic Ducts: ?? Normal Extrahepatic Ducts: ?? Normal Common Duct Size: ? 5.0 ? mm FLUID COLLECTIONS: No ascites in the imaged RUQ & RLQ. Procedure Note Sumanth Pitts MD - 09/12/2021Format ting of this note might be different from the original. Abdominal (Signed Final 09/12/2021 01:2 6 pm) PATIENT INFO: ID #: [id number] : 58 (60 y rs)(F) Name: BLOSSOM Ray Visit Date: 09/12/2021 12:42 pm TARA PERFORMED BY: Performed By: Agata Villalobos RDMS Attending: Sumanth Pitts MD Resident: Kenneth RUIZ, Brandi Referred By: HAILEY MCCLENDON Location: [place] [facility]) [facility] Hep[facility] Protocol - Abdomin al [id number] Limited Survey Single Organ or Quadrant - [id number] INDICATIONS: cirrhosis, HCC screening COMPARISON: US: Hepatology 12/30/19 ------ LIVER: ------ Right Lobe Length: 22.9 cm Echogenicity/Echotexture: Increased ech ogenicity. coarse with capsular nodularity Portal Veins: Hepatopetal Comment: No focal lesion seen. Hepatome kimberly. GALLBLADDER: Focal Tenderness: Negative sonographic Perez's sign Comment: Surgically absent. BILIARY TRACT: Intrahepatic Ducts: Normal Extrahepatic Ducts: Normal Common Duct Size: 5.0 mm FLUID COLLECTIONS: No ascites in the imaged RUQ & RLQ. IMPRESSION 1. The liver is quite large and diffuse ly, somewhat coarsely increased in echogenicity with capsular micronodular ity. The appearance suggests a combination of steatosis and cirrhosis. No focal hepatic lesions seen. 2. The main portal vein is patent with normal directional flow. No ascites. 3. Status post cholecystectomy. No bili carmela ductal dilatation. Electronically signed by: Sumanth treviño MD, [facility] ([phone]), at 1:19 PM Thank you for letting us participate in the care of this patient. If you are a [facility] er and have any questions regarding this report, please contact the number above. For patients who have ques tions, please contact the [facility] that requested your imaging first. 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
--- OUTSIDE RECORDS SUMMARY | 2022-02-08 01:49 | XMS_ITS | Encounter Summary ---
:1960 Author Organization [facility] [place] [address] Care Team Providers Name Role Phone Albert Zuleta MD Primary Care Provider Encounter Details Date Type Department Care Team Description 03/30/2021 Telephone Cardiology at [facility] [place], [place] [address] Social History Tobacco Use Types Packs/Day [...] this encounter Miscellaneous Notes Telephone Encounter - Ibis Vasquez RN - 03/30/2021 4:[address] Drew Her sxs seem non-cardiac in origin. She triggered the monitor 15 times. Every single time she was in a completely normal rhythm, so I am not sure that there is an arrhythmia explanation for her symptoms. We can always try going up on her carvedilol to 25 mg BID to see if that helps, but based on the Zio results, this seems less likely Clear connection established. Message given with teach back method done. Sakshi will send a message if she is going to try the increase in carvedilol. Ibis Vasquez RN 4A Cardiology documented in this encounter Plan of Treatment Upcoming Encounters Date Type Specialty Care Team Description 03/15/2022 Office Visit Neurology Ryann Barfield APRN [facility] NEUROLOGY [place], [place] [address] 03/23/2022 Appointment Radiology Hailey Mcclendon MD [facility] [address] [place] [address] 03/23/2022 Laboratory Appointment Lab 03/23/2022 Office Visit Gastroenterology Hailey Mcclendon MD [facility] [address] [place] [address] 05/23/2022 Procedure visit Maxillofacial Surgery Corby Montes MD [facility] [address] [place] [address] documented as of this encounter Goals Goal Patient Goal Associated Recent Patient-Stated? Author Type Problems Progress meal Lifestyle Not on track Sandra Marcano, timing/food (08/26/2020 ilda Solitario 9:40 AM EST) DIRECTOR OF THERAPY SERVICES Note: Formatting of this note might be d ifferent from the original. Try tracking using my fitnesspal or note book Use your date book to keep track of thin gs you need to do to improve your health. Meal timing: consider eating biggest troy l mid day, plasterer maintenance dinner, try not to eat after dinner-try [...] or 1 c up Low fat plain Armenian Yogurt or 3 eggs or 3 ounces of meat 3. Restart Protien shakes using Unsweete mariam [place] Milk 4. Consider Meal replacements such as Le na Cuisine or Healthy Choice (read label to reach 20 grams of protein) 5. Keep hard boiled eggs on hand 6. Aim for reducing fruit intake to 2 se rvings/day 1. Consider Investigating Deepka Stephanie 'What are you hungry for? 2. Restart Protien shakes using Unsweete mariam [place] Milk 3. When you feel well enough, boil a doz en hard boiled eggs Other (Enter personal goal) Lifestyle No Shaila Duffy RD Note: Formatting of this note might be d ifferent from the original. Nutrition Goals: 1. Consider Investigating Deepka Stephanie 'What are you hungry for? 2. Restart Protien shakes using Unsweete mariam [place] Milk 3. When you feel well enough, boil a doz en hard boiled eggs documented as of this encounter Visit Diagnoses Not on filedocumented in this encounter Care Teams Rock Splitter Relationship Specialty Start Date End Date Albert Zuleta MD PCP - General Family Medicine 01/17/17 10/26/21 [address] [place] [address] documented as of this encounter
--- OUTSIDE RECORDS SUMMARY | 2022-02-08 01:49 | XMS_ITS | Encounter Summary ---
:1960 Author Organization [facility] [place] [address] Care Team Providers Name Role Phone Albert Zuleta MD Primary Care Provider Reason for Visit Consultation (Routine) - Authorized Specialty Diagnoses / Procedures Referred By Contact Refer red To Contact Gastroenterology Diagnoses Unspecified cirrhosis of liver Unspecified cirrhosis of liver Albert Zuleta MD [facility] [address] [place] [address] [address] [place] [address] Fax: Referral ID Status Reason Start Expiration Visits Visits Date Date Requested Authorized [id number] Authorized Consult, 06/27/2021 06/27/2022 6 6 [facility] PCP Updated and/or Approved Encounter Details Date Type Department Care Team Description 09/12/2021 Office Visit Gastroenterology at [facility] [place] Hailey Mcclendon, Cirrhosis of liver [facility] Maciel lorenzana MD without ascites, [place] [address] [facility] Medical unspecified hepatic [phone] [place] [address] Social History Tobacco Use Types Packs/Day Years [...] Sign Reading Time Taken Comments Blood Pressure 123/48 09/12/2021 3:01 PM EST Pulse 70 09/12/2021 3:01 PM EST Temperature - - Respiratory Rate - - Oxygen Saturation - - Inhaled Oxygen Concentration - - Weight 144.2 kg (318 lb) 09/12/2021 3:01 PM EST Height 167.6 cm (5' 6) 09/12/2021 3:01 PM EST Body Mass Index 51.33 09/12/2021 3:01 PM EST documented in this encounter Progress Notes Hailey Mcclendon MD - 09/12/2021 3:00 PM EST Gastroenterology and Hepatology Follow Up Note Patient: Blossom Samayoa : 1960 Provider: Hailey Mcclendon MD Problem List: 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 HCC screening - Negative CT 03/2019 - Negative CT 09/2020 - Negative U/S 08/2021 Interval History: No signs GI bleeding or ascites. She has noted more trouble with her memory (not remembering a book she just read). She has noted this for the past year. Her BM are loose at baseline with 3-25 per day depending on what she eats. She is not sleeping well at night, but this has been the case since childhood. She had prior evaluation with sleep medicine. MELD-Na score: 10 at 09/12/2021 1:44 PM MELD score: 10 at 09/12/2021 1:44 PM Calculated from: Serum Creatinine: 1.16 mg/dL at 09/12/2021 1:44 PM Serum Sodium: 137 mmol/L at 09/12/2021 1:44 PM Total Bilirubin: 1.0 mg/dL at 09/12/2021 1:44 PM INR(ratio): 1.2 at 09/12/2021 1:44 PM Age: 60 years Current Outpatient Medications Medication Sig Dispense Refill ??? cephALEXin (Keflex) 500 mg Capsule Take 1 capsule by mouth 3 times daily. 21 capsule 0 ??? HYDROcodone-acetaminophen 5-325 mg Tablet hydrocodone-acetaminophen 5/325mg- 1-2 tab daily PRN ??? umeclidinium (Incruse Ellipta) 62.5 mcg/actuation Disk with Device Incruse Ellipta 1 puff daily ??? LEVALBUTEROL TARTRATE INHL levalbuterol tartrate 1 puff daily PRN ??? clotrimazole-betamethasone (LOTRISONE) 1-0.05 % Cream Apply topically. ??? glipizide/metformin HCl (GLIPIZIDE-METFORMIN ORAL) glipizide-metformin 500mg, 2 tabs BID ??? NovoLOG Flexpen U-100 Insulin Insulin Pen INJECT 15 30 UNITS SUBCUTANEOUSLY THREE TIMES A DAY WITH MEALS ??? tiotropium (Spiriva with HandiHaler) 18 mcg Capsule, w/Inhalation Device Inhale 1 capsule into the lungs. ??? metFORMIN (Glucophage) 500 mg Tablet Take 500 mg by mouth daily. ??? insulin glargine,hum.rec.anlog (BASAGLAR KWIKPEN U-100 INSULIN SUBQ) Inject 56 Units subcutaneously nightly. ??? multivitamin (THERAGRAN) Tablet Take 1 tablet by mouth daily. ??? carvediloL (Coreg) 25 mg Tablet Take 12.5 mg by mouth 2 times daily (with meals). Take one half tablet by mouth two times daily. ??? Trulicity 1.5 mg/0.5 mL Pen Injector ??? amitriptyline (Elavil) 50 mg Tablet Take 50 mg by mouth nightly. ? ? lactobacillus acidophilus & bulgar 1 million cell Tablet, Chewable CHEW ONE TABLET BY MOUTH EVERY DAY ??? ibuprofen (Advil;Motrin) 600 mg Tablet Take 1 tablet by mouth every 6 hours as needed for Pain. 30 tablet 12 ??? acetaminophen (TYLENOL) 500 mg Tablet Take 1,000 mg by mouth every 6 hours as needed for Pain. ??? cholestyramine (QUESTRAN) 4 gram Powder Take by mouth 2 times daily (with meals). ??? acyclovir (ZOVIRAX) 5 % Ointment Apply 1 each topically every 3 hours. ??? valACYclovir (VALTREX) 1 gram Tablet TAKE ONE TABLET BY MOUTH EVERY DAY NEEDED 1 ??? nitroGLYcerin (NITROSTAT) 0.4 mg Tablet, Sublingual Place 0.4 mg under the tongue every 5 minutes as needed for Chest pain. ??? diclofenac (VOLTAREN) 1 % Gel Apply topically 4 times daily as needed. ??? atorvastatin (LIPITOR) 10 mg Tablet Take 10 mg by mouth daily. ??? dulaglutide (TRULICITY SUBQ) Inject subcutaneously once a week. ??? aspirin 81 mg Tablet, Chewable Take 81 mg by mouth daily. 30 tablet 3 ??? loratadine (CLARITIN) 10 mg Tablet TAKE ONE TABLET BY MOUTH EVERY DAY NEEDED 3 ??? gabapentin (NEURONTIN) 600 mg Tablet 600 mg 4 times daily. 1 ??? spironolactone (ALDACTONE) 25 mg Tablet TAKE ONE TABLET BY MOUTH EVERY DAY 3 ??? lisinopril (PRINIVIL;ZESTRIL) 5 mg Tablet TAKE ONE TABLET BY MOUTH DAILY 3 No current facility-administered medications for this visit. Vitals: 09/12/21 1501 BP: 123/48 BP Location ([facility]): Right arm Patient Position: Sitting BP Cuff Sizes: Large Adult (32-43 cm) Pulse: 70 Weight: (!) 144.2 kg (318 lb) Height: 167.6 cm (5' 6) Body mass index is 51.33 kg/m??. 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 She is well compensated. Repeat CBC, CMP, and INR in Feb 2022. ?? #2 At risk for HCC Ultrasound and AFP every 6 months. Next due in 02/2022. ?? #3 At risk for esophageal varices Continue carvedilol 12.5 mg twice daily. # HE Start rifaximin 550 mg BID. Hailey Mcclendon MD Section of Gastroenterology & Hepatology [address] [place], [place] [id number] Time spent reviewing records prior to this encounter: 5 minutes Time spent during encounter with patient including counselin minutes Time spent documenting encounter after office visit: 5 minutes Approximate total time devoted to this single encounter on the day of the encounter: 30 minutes Cc: Albert Zuleta MD documented in this encounter Plan of Treatment Upcoming Encounters Date Type Specialty Care Team Description 03/15/2022 Office Visit Neurology Ryann Barfield, [facility] [address] [place], [place] [address] 03/23/2022 Appointment Radiology Hailey Mcclendon MD [facility] [address] [place] [address] 03/23/2022 Laboratory Appointment Lab 03/23/2022 Office Visit Gastroenterology Hailey Mcclendon MD [facility] [address] [place] [address] 05/23/2022 Procedure visit Maxillofacial Surgery Corby Montes MD [facility] [address] [place] [address] Scheduled Orders Name Type Priority Associated Diagnoses Order S chedule CBC (with Diff) Lab Routine Cirrhosis of liver Expect ed: 03/12/2022 without ascites, (Approximat e), unspecified hepatic Expires: 09/11/2022 cirrhosis type Comprehensive metabolic Lab Routine Cirrhosis of live r Expected: 03/12/2022 panel (non-fasting) without ascites, (Bucky roximate), unspecified hepatic Expires: 09/11/2022 cirrhosis type Prothrombin Time Lab Routine Cirrhosis of liver Expec tacos: 03/12/2022 without ascites, (Approximat e), unspecified hepatic Expires: 09/11/2022 cirrhosis type AFP tumor marker Lab Routine Cirrhosis of liver Expec tacos: 03/12/2022 without ascites, (Approximat e), unspecified hepatic Expires: 09/11/2022 cirrhosis type US Abdomen Limited Imaging Routine Cirrhosis of liver Exp ected: 03/12/2022 Hepatology Protocol without ascites, (Bucky amy), unspecified hepatic Expires: 09/11/2022 cirrhosis type documented as of this encounter Goals Goal [...] consider eating biggest troy l mid day, projection camera operator dinner, try not to eat after [...] (08/26/2020 9:40 AM EST) No Iman Marcano, FLEX O WRITER OPERATOR Note: Formatting of this note might be [...] (08/26/2020 9:40 AM EST) No Iman Marcano, FLEX O WRITER OPERATOR Note: Formatting of this note might be [...] or 1 c up Low fat plain [place]ian Yogurt or 3 eggs or 3 ounces of meat 3. Restart Protien shakes using Unsweete mariam [place] Milk 4. Consider Meal replacements such as Le na Cuisine or Healthy Choice (read label to reach 20 grams of protein) 5. Keep hard boiled eggs on hand 6. Aim for reducing fruit intake to 2 se rvings/day 1. Consider Investigating Deepka Stephanie 'What are you hungry for? 2. Restart Protien shakes using Unsweete mariam [place] Milk 3. When you feel well enough, boil a doz en hard boiled eggs Other (Enter personal goal) Lifestyle No Shaila Duffy I, RD Note: Formatting of this note might be d ifferent from the original. Nutrition Goals: 1. Consider Investigating Deepka Stephanie 'What are you hungry for? 2. Restart Protien shakes using Unsweete mariam [place] Milk 3. When you feel well enough, boil a doz en hard boiled eggs documented as of this encounter Visit Diagnoses Diagnosis Cirrhosis of liver without ascites, unsp ecified hepatic cirrhosis type documented in this encounter Care Teams Presser Hand Relationship Specialty Start Date End Date Albert Zuleta MD PCP - General Family Medicine 01/17/17 10/26/21 [address] [place] [address] documented as of this encounter
--- OUTSIDE RECORDS SUMMARY | 2022-02-08 01:49 | XMS_ITS | Encounter Summary ---
:1960 Author Organization [facility] Address [facility] [place] [address] Care Team Providers Name Role Phone Albert Zuleta MD Primary Care Provider Encounter Details Date Type Department Care Team Description 08/01/2021 [place] [facility] [place]oham Hankins MD [facility]ONOSCOPY, [facility] POLYPECTOMY, [place] [address] [address] [address] LESION [address] SNARE ([facility] [phone] GASTROENEROLOGY 4.67) [place], [place] [address] Social History Tobacco Use Types [...] Sign Reading Time Taken Comments Blood Pressure 199/92 08/01/2021 7:07 AM EST Pulse 66 08/01/2021 7:07 AM EST Temperature 36.2 ??C (97.2 ??F) 08/01/2021 7:07 AM EST Respiratory Rate 20 08/01/2021 7:07 AM EST Oxygen Saturation 98% 08/01/2021 7:07 AM EST Inhaled Oxygen Concentration - - Weight 147.4 kg (325 lb) 08/01/2021 7:07 AM EST Height 167.6 cm (5' 6) 08/01/2021 7:07 AM EST Body Mass Index 52.46 08/01/2021 7:07 AM EST documented in this encounter Discharge Instructions Discharge InstructionsAlon Singletary RN - 08/01/2021 8:26 AM EST Colonoscopy: What to Expect at Home Your Recovery Your doctor will talk to you about when you will need your next colonoscopy. Your doctor can help you decide how often you need to be checked. This will depend on the results of your test and your riskfor colorectal cancer. After the test, you may be bloated or have gas pains. You may need to pass gas. If a biopsy was doneor a polyp was removed, you may have streaks of blood in your stool (feces) for a few days. Problemssuch as heavy rectal bleeding may not occur until several weeks after the test. This isn't common. But it can happen after polyps are removed. This care sheet gives you a general idea about how long it will take for you to recover. But each person recovers at a different pace. Follow the steps below to get better as quickly as possible. How can you care for yourself at home? Activity Rest when you feel tired. ?? You can do your normal activities when it feels okay to do so. Diet ?? Follow your doctor's directions for eating. ?? Unless your doctor has told you not to, drink plenty of fluids. This helps to replace the fluidsthat were lost during the colon prep. ?? Do not drink alcohol. Medicines ?? Your doctor will tell you if and when you can restart your medicines. He or she will also give you instructions about taking any new medicines. ?? If you take blood thinners, such as warfarin (Coumadin), clopidogrel (Plavix), or aspirin, be sure to talk to your doctor. He or she will tell you if and when to start taking those medicines again.Make sure that you understand exactly what your doctor wants you to do. ?? If polyps were removed or a biopsy was done during the test, your doctor may tell you not to take aspirin or other anti-inflammatory medicines for a few days. These include ibuprofen (Advil, Motrin) and naproxen (Aleve). Other instructions ?? For your safety, do not drive or operate machinery until the medicine wears off and you can think clearly. Your doctor may tell you not to drive or operate machinery until the day after your test. ?? Do not sign legal documents or make major decisions until the medicine wears off and you can think clearly. The anesthesia can make it hard for you to fully understand what you are agreeing to. Additional Information for Sedation Patients For patients who received sedation: ?? You may have received medications before and/or during your procedure which effects your judgement and reaction time. ?? Do not drive, operate machinery, drink alcoholic beverages or make important decisions for 24 hours. ?? Be careful on stairs as you may be unsteady on your feet. ?? You may eat a regular diet as tolerated. ?? Do not smoke if you are alone. ?? IV site: Slight redness or tenderness is normal, you can use a warm compress if you would like. If tenderness and/or redness increase or if foul drainage occurs, please contact your Doctor. Please call [phone] before 8pm Mon-Fri with problems, questions or concerns. If you call after 8pm or on weekends, call the Hospital at [phone] and ask to speak to the Supervisor [employer] vocational director and the train operator will contact that person for you. When should you call for help? Call [phone] anytime you think you may need emergency care. For example, call if: ?? You passed out (lost consciousness). ?? You pass maroon or bloody stools. ?? You have trouble breathing. Call your doctor now or seek immediate medical care if: ?? You have pain that does not get better after you take pain medicine. ?? You are sick to your stomach or cannot drink fluids. ?? You have new or worse belly pain. ?? You have blood in your stools. ?? You have a fever. ?? You cannot pass stools or gas. Watch closely for changes in your health, and be sure to contact your doctor if you have any problems. Where can you learn more? [facility] View your After Visit Summary and more online at [email or web address] If you would like to provide feedback about your hospital experience, please call the Office of Patient and Family Relations at . If you have received this After Visit Summary in error, please immediately return it in person to the department, or notify the [facility] Privacy Office by calling toll free at between the hours of 8AM and 5PM to arrange for our retrieval of the documents at no cost to you. Content Version: 12.2 ?? [phone] [facility]. Care instructions adapted under license by [facility]. If you have questions about a medical condition or this instruction, always ask your healthcare professional. [facility] disclaims any warranty or liability for your use of this information. documented in this encounter Medications at Time [...] BID ORAL) documented as of this encounter H&P Notes Soham Hankins MD - 08/01/2021 7:30 AM EST Patient Name: Blossom Samayoa Patient Age: 60 y.o. Birthdate: 1960 Admit date: 08/01/2021 Attending Physician: Soham Hankins MD Gastroenterology and Hepatology Pre-Procedure History and Physical Exam Procedure: Colonoscopy: Indication: intermittent rectal bleeding / BRBPR once per month for past 1 year; previous h/o polyps. Patient Active Problem List Diagnosis Code ??? 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 Cirrhosis K74.60 EXAM: HEENT: Airway examined, oropharynx clear Mallampati Score: per anesthesia LUNGS: Clear to auscultation HEART: Regular rate and rhythm, normal S1, S2 ABDOMEN: Normal bowel sounds, soft, non tender, non distended A/P Proceed with the planned endoscopic procedure. ASA 3 - Patient with moderate systemic disease with functional limitations Sedation Plan: anesthesia Risks and benefits of the procedure explained to the patient in detail. Consent signed. documented in this encounter Miscellaneous Notes Op Note - Soham Hankins MD - 08/01/2021 7:40 AM EST [facility] [place] Note Patient Name: Blossom Samayoa : [id number] MR#: [id number] Case Date: 08/01/2021 Surgeon: Surgeon(s) and Role: * Soham Hankins MD - Primary Preoperative diagnosis: Colonoscopy Sedation: Anesthesia TImeframe: within 3 Weeks -- B. Indication: Bleeding (BRBPR) This procedure should be performed with: Any Endoscopist Findings: See Provation note for details of procedure. documented in this encounter Plan of Treatment Upcoming Encounters Date Type Specialty Care Team Description 03/15/2022 Office Visit Neurology Ryann Barfield, [facility] [address] [place], [place] [address] 03/23/2022 Appointment Radiology Hailey Mcclendon MD [facility] [address] [place] [address] 03/23/2022 Laboratory Appointment Lab 03/23/2022 Office Visit Gastroenterology Hailey Mcclendon MD [facility] [address] [place] [address] 05/23/2022 Procedure visit Maxillofacial Surgery Corby Montes MD [facility] [address] [place] [address] documented as of this encounter Goals Goal Patient Goal Associated Recent Patient-Stated? 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 Try tracking using my fitnesspal or note book Use your date book to keep track of thin gs you need to do to improve your health. Meal timing: consider eating biggest troy l mid day, exhibits coordinator dinner, try not to eat after dinner-try [...] or 1 c up Low fat plain Swedish Yogurt or 3 eggs or 3 ounces of meat 3. Restart Protien shakes using Unsweete mariam [place] Milk 4. Consider Meal replacements such as Le na Cuisine or Healthy Choice (read label to reach 20 grams of protein) 5. Keep hard boiled eggs on hand 6. Aim for reducing fruit intake to 2 se rvings/day 1. Consider Investigating Deepka Stephanie 'What are you hungry for? 2. Restart Protien shakes using Unsweete mariam [place] Milk 3. When you feel well enough, boil a doz en hard boiled eggs Other (Enter personal goal) Lifestyle No Shaila Duffy I, RD Note: Formatting of this note might be d ifferent from the original. Nutrition Goals: 1. Consider Investigating Deepka Stephanie 'What are you hungry for? 2. Restart Protien shakes using Unsweete mariam [place] Milk 3. When you feel well enough, boil a doz en hard boiled eggs documented as of this encounter Procedures Procedure Name Priority Date/Time Associated Diagnosis Comme nts SURGICAL PATHOLOGY Routine 08/01/2021 8:19 AM Res ults for this REPORT EST procedure are i n the results section. SPECIMEN TO Routine 08/01/2021 8:19 AM Results f or this PATHOLOGY EST procedure are i n the results section. COLONOSCOPY, 08/01/2021 7:33 AM Colonoscopy POLYPECTOMY, REMOVAL EST Sedation: Anesthesia LESION BY SNARE (WRVU 4.67) TImeframe: within 3 Weeks -- B. Indication: Bleeding (BRBPR) This procedure should be performed with: Any Endoscopist COLONOSCOPY Routine 08/01/2021 7:27 AM Results f or this EST procedure are i n the results section. documented in this encounter Results Surgical Pathology Report (08/01/2021 8:19 AM EST) Component Value Ref Test Analysis Performed At [facility] Range Method Time Signature Surgical [id number] ? Location: ; [facility]; [facility] Pathology [place] Report The signing pathologist has (i) examined the relevant preparation(s) for the [facility] specimen(s) and (ii) rendered or confirmed the diagnosis(es) . HOSPITAL LABORATORY . ?Surgic al Pathology DIAGNOSIS A - Polyps TC 2 mm, DC 3 mm, excision: Tubular adenoma. Hyperplastic polyp. Electronically signed by: ?Blake RUIZ, Snow Verified: ??08/05/2021 17:20 ??Pathologist Performed at: ??-[facility] [place]. [place], [place], [place] SPECIMEN(S) SUBMITTED A - Polyps TC 2 mm, DC 3 mm, excision (2) CLINICAL INFORMATION Colonoscopy for intermittent rectal bleeding SPECIMEN PROCESSING A - Labeled/Fixative: Polyps TC 2 mm, EDC 3 mm, formalin. Quantity/Size: Multiple, from 0.2 cm to 0.8 x 0.2 x 0.1 cm. Tissue Description: Montez-pink mucosal tissues; differentially inked. Sections/Processing: Entirely submitted in 3 cassettes labeled A1-A3. ??pps Specimen (Source) Anatomical Collection Method Collection Time Re ceived Time Location / / Volume Laterality 08/01/2021 8:19 AM EST Soham Hankins MD PATHOLOGY/CYTOLOGY ORDERABLE S Performing Organization Address City/[facility]/ZIP Code Phon e Number [address] Specimen to Pathology (08/01/2021 8:19 AM EST) Specimen Anatomical Collection Method Collection Time Receive d Time (Source) Location / / Volume Laterality AP Specimen 08/01/2021 8:19 AM 8:19 EST AM EST [address] [facility] - 08/01/2021 8:19 AM EST Specimen requisition ordered. ??Separate Pathology report to follow Soham Hankins MD PATHOLOGY/CYTOLOGY ORDERABLE S Performing Organization Address City/[facility]/[place] [address] COLONOSCOPY (08/01/2021 7:27 AM EST) Component Value Ref Test Analysis Performed At [facility] gist Range Method Time Signature COLONOSCOPY [facility] Endoscopy Procedure Date: 08/01/2021 7:27 AM ? Patient Name: Blossom Samayoa ? Date of : 1960 ? Age: 60 ? Order #: [id number] ? Instrument Name: [id number] ? Procedure: ? Colonoscopy Indications: ? Hematochezia, Rectal bleeding Providers: ? Jeff Faustin, RN , ? Ciara Martin, Marketing Services Vice President Referring MD: ?Albert Zuleta Medicines: ? Monitored Anesthesia Care Complications: ? No immediate complications. Estimate d ? blood loss: Minimal. Procedure: ? Pre-Anesthesia Assessment: ? - Prior to the procedure, a H istory ? and Physical was performed, a nd ? patient medications, allergie s and ? sensitivities were reviewed. The ? patient's tolerance of previo us ? anesthesia was reviewed. ? - The risks and benefits of t he ? procedure and the sedation op tions ? and risks were discussed with the ? patient. All questions were a nswered ? and informed consent was obta ined. ? - ASA Grade Assessment: III - A ? patient with severe systemic disease. ? - Monitored anesthesia care u nder the ? supervision of an anesthesiol ogist ? was determined to be medicall y ? necessary for this procedure based on ? severe comorbidity (greater t schmidt ASA ? Grade II) and morbid obesity. ? The procedure, indications, b enefits, ? risks and alternatives were e xplained ? to the patient. Specifically ? discussed were potential ? complications including, but not ? limited to, bleeding, perfora tion, ? infection, missing a cancer, and ? adverse medication reactions. The ? patient was placed in the lef t ? lateral decubitus position, a nd a ? digital rectal exam was perfo rmed. ? The Colonoscope was inserted in the ? anus and under direct visuali zation, ? advanced to the cecum, identi fied by ? appendiceal orifice and ileoc ecal ? valve. Careful inspection was made as ? the colonoscope was withdrawn . The ? colonoscopy was performed wit amanda ? difficulty. The patient myron ated the ? procedure well. The quality o f the ? bowel preparation was evaluat ed using ? the BBPS ([place] Bowel Prepar ation ? Scale) with scores of: Right Colon = ? 2 (minor amount of residual s taining, ? small fragments of stool and/ or ? opaque liquid, but mucosa see n well), ? Transverse Colon = 2 (minor a mount of ? residual staining, small frag ments of ? stool and/or opaque liquid, b ut ? mucosa seen well) and Left Co karen = 2 ? (minor amount of residual sta ining, ? small fragments of stool and/ or ? opaque liquid, but mucosa see n well). ? The total BBPS score equals 6 . The ? quality of the bowel preparat ion was ? fair. ? Findings: ? The perianal and digital rectal examinations were ? normal. ? Bowel prep was initially inadequate but improved with ? copious water irrigation to adequate for today's ? exam; would recommend extended bowel prep prior to ? future colonoscopies (and consider holding ? cholestyramine for 5-7 days prior). ? Two sessile polyps were found in the descending colon ? and transverse colon. The polyps were 2 to 3 mm in ? size. These polyps were removed with a cold snare. ? Resection and retrieval were complete. Verification ? of patient identification for the specimen was done ? by the physician and nurse using the patient's name ? and date. Estimated blood loss was minimal. ? A few small-mouthed diverticula were found in the ? sigmoid colon. ? The sigmoid colon and ascending colon revealed ? significantly excessive looping. Advancing the scope ? required applying abdominal pressure. ? Non-bleeding external and internal hemorrhoids were ? found during retroflexion. The hemorrhoids were small . ? Moderate Sedation: ? Not applicable - See Anesthesia documentation Impression: ?- Preparation of the colon was raven r; ? initially inadequate but impr kenn ? with copious water irrigation to ? adequate for today's exam; wo uld ? recommend extended bowel prep prior ? to future colonoscopies (and consider ? holding cholestyramine for 5- 7 days ? prior). ? - Two 2 to 3 mm polyps in the ? descending colon and in the ? transverse colon, removed wit h a cold ? snare. Resected and retrieved . ? - Diverticulosis in the sigmo id colon. ? - There was significant loopi ng of ? the colon with abdominal pres sure ? utilized to facilitate cecal ? intubation. ? - Non-bleeding external and i nternal ? hemorrhoids. ? - No obvious source of interm ittent ? rectal bleeding noted on toda y's ? exam, but possibly related to ? hemorrhoids and/or mild ? diverticulosis. Recommendation: ?- Patient has a contact number ? available for emergencies. Th e signs ? and symptoms of potential del ayed ? complications were discussed with the ? patient. Return to normal act ivities ? tomorrow. Written discharge ? instructions were provided to the ? patient. ? - Discharge patient to home ? (ambulatory). ? - Await pathology results. ? - Repeat colonoscopy in 3 yea rs for ? surveillance given first degr ee ? relative (sister) with h/o co karen ? cancer, previous known colon polyps ? and less than ideal bowel pre paration ? today; would recommend extend ed bowel ? prep prior to future colonosc opies ? (and consider holding cholest yramine ? for 5-7 days prior). ? - Return to referring physici an. ? Attending Participation: ? I personally performed the entire procedure. ? Neej Sean Hankins, 08/01/2021 8:30:42 AM Number of Addenda: 0 Note Initiated On: 08/01/2021 7:27 AM Specimen (Source) Anatomical Collection Method Collection Time Re ceived Time Location / / Volume Laterality 08/01/2021 7:27 AM EST Albert Zuleta MD GENERAL SURGICAL ORDERABLES Performing Organization Address City/State/ZIP Code Phon e Number [facility] documented in this encounter Visit Diagnoses Not on filedocumented in this encounter Administered Medications Inactive Administered Medications - up to 3 most recent administrations Medication Order MAR Action Action Date Dose Rate Site lactated ringers infusion New Bag 08/01/2021 7:30 AM EST 100 mL/hr 100 mL/hr 100 mL/hr, Intravenous, CONTINUOUS, Starting on Mon /10/22 at 0730, Until Sun08/01/21 at 0901, Endoscopy (Intra-Procedure) documented in this encounter Active and Recently Administered Medications Times are shown in EST. Continuous Medication Order 07/30/2021 07/31/2021 08/01/2021 lactated ringers infusion (CANCELED) 0730 (New Bag - Provider: Qamar Muñoz RN) 100 mL/hr, Intravenous, CONTINUOUS, Star ting on Sun08/01/21 at 0730, Until Sun08/01/21 at 0901, Endoscopy (Intra-Procedure) documented in this encounter Care Teams Steeplechase Jockey Relationship Specialty Start Date End Date Albert Zuleta MD PCP - General Family Medicine 01/17/17 10/26/[address] [place] [address] documented as of this encounter
--- OUTSIDE RECORDS SUMMARY | 2022-02-08 01:49 | XMS_ITS | Encounter Summary ---
:1960 Author Organization [place] [address] Care Team Providers Name Role Phone Albert Zuleta MD Primary Care Provider Encounter Details Date Type Department Care Team Description 09/30/2021 Telephone Urology at [facility] [place] Crow Galvin Jr., [place] [facility] [place] [address] UROLOGY DEPT. [phone] [place], [place] [address] (Wo rk) Social History Tobacco [...] this encounter Miscellaneous Notes Telephone Encounter - Crow Galvin Jr., MD - 09/30/2021 6:10 PM EST I returned call from Blossom Samayoa. She reports intermittent hematuria, has known bilateral renal stones. We discussed the source of this is unclear. I offered cystoscopy with possible biopsy, possible fulguration, as well as possible bilateral retrograde pyelograms. She would like to proceed.with this in OR. We discussed stones are noted , but non obstructing. She will continue to monitor, but defer any treatment until hematuria assessed. documented in this encounter Plan of Treatment Upcoming Encounters Date Type Specialty Care Team Description 03/15/2022 Office Visit Neurology Ryann Barfield APRN [facility] [place], [place] [address] 03/23/2022 Appointment Radiology Hailey Mcclendon MD [facility] [address] [place] [address] 03/23/2022 Laboratory Appointment Lab 03/23/2022 Office Visit Gastroenterology Hailey Mcclendon MD [facility] [address] [place] [address] 05/23/2022 Procedure visit Maxillofacial Surgery Corby Montes MD [facility] [address] [place] [address] documented as of this encounter Goals Goal Patient Goal Associated Recent Patient-Stated? 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 Try tracking using my fitnesspal or note book Use your date book to keep track of thin gs you need to do to improve your health. Meal timing: consider eating biggest troy l mid day, stop attacher dinner, try not to eat after dinner-try [...] 3. Restart Protien shakes using Unsweete mariam [place] Milk 4. Consider Meal replacements such as Le na Cuisine or Healthy Choice (read label to reach 20 grams of protein) 5. Keep hard boiled eggs on hand 6. Aim for reducing fruit intake to 2 se rvings/day 1. Consider Investigating Deepka Stephanie 'What are you hungry for? 2. Restart Protien shakes using Unsweete mariam [place] Milk 3. When you feel well enough, boil a doz en hard boiled eggs Other (Enter personal goal) Lifestyle No Shaila Duffy RD Note: Formatting of this note might be d ifferent from the original. Nutrition Goals: 1. Consider Investigating Salena Brown 'What are you hungry for? 2. Restart Protien shakes using Unsweete mariam [place] Milk 3. When you feel well enough, boil a doz en hard boiled eggs documented as of this encounter Visit Diagnoses Diagnosis Gross hematuria documented in this encounter Care Teams Booking Prizer Relationship Specialty Start Date End Date Albert Zuleta MD PCP - General Family Medicine 01/17/17 10/26/21 [address] [place] [id number] documented as of this encounter
--- OUTSIDE RECORDS SUMMARY | 2022-02-08 01:49 | XMS_ITS | Encounter Summary ---
:1960 Author Organization [facility] [place] [address] Care Team Providers Name Role Phone Trev Burr MD Primary Care Provider Encounter Details Date Type Department Care Team Description 10/27/2021 Anesthesia Event Main Operating Room Cece Young MD [facility] [place] [address] [facility] [place] MD [facility] [place] [address] [place] [address] Anesthesia Record Procedure Summary Procedure Name Responsible Anesthesia Start Anesthesia Stop Anesthesiologist Time Time CYSTO, RETROGRADE, Cece Btaista MD 10/27/21 1619 10/27/21 1731 URETEROPYELOGRAPHY (WRVU 2.37) (Bilateral Ureter) Events Date Time Event Comment 10/27/2021 1556 1619 AN Verify 1619 Start 1621 An Start Data 1629 An Induction 1630 An Intubation 1630 Anesthesia Ready 1652 Break/Relief In I assumed care f or Break Relief before which we: 1. Identifie d the patient 2. Identified the responsible provider(s) 3. Reviewed the pertinent medica l history 4. Discussed the surgical plan an d course 5. Reviewed intra-op anesthesia manag ement and issues during anesthesia 6. Se t expectations for the relief (and/or post-pro cedure) period 7. Allowed opportunity for questions and acknowledgement of understanding Ariane Mckenna CRNA 1720 Extubation/LMA Out 1722 an stop data 1731 Recovery or ICU Handoff Patient care was transferred to the destination unit staff after review of the patient's medica l history, current anesthetic/surgi beverley status and plan, according to the Provider Handoff Checklist. 1731 Stop Name Total Propofol 100 mg IV Lidocaine 100 mg Ondansetron 4 mg Midazolam 2 mg PHENYLephrine INF 570 mcg Gentamicin 320 mg lactated ringers infusion 500 mL Agents Name O2 Air N2O Sevoflurane (et) Blood No blood administrations on file. Lines, Drains, and Airways Type Details Placement Removal Incision 07/01/19; 0911; upper 07/01/19 0911 by katrina Mccarty; non-laparascopic Avani Zhou RN puncture; U/S guided liver biopsy Incision 08/12/19; 1446; neck 08/12/19 1446 by Naomi Ahn RN Incision 11/18/20; 0811; other (see 11/18/20 0811 by comments) (entered Kelsey Baca RN urethral meatus); urethral meatus Incision 10/27/21; 1648; urethral 10/27/21 1648 by kimberley Stewartus; cystoscopy Cora Lisa RN PIV 08/01/21; 0715; cephalic 08/01/21 0715 by Toni, 12/27/21 1027 by vein (lateral side of BRYAN Marr Andrea arm), right; [id number] catheter system; Anatomical Landmarks; 20 gauge; TimK; 12/27/21 (LDA Cleanup utility RA#[id number]); 1027 (LDA Cleanup utility RA#[id number]) Supraglottic Mask Ventilation: Not 10/27/21 1630 by Barry, 0 10/27/21 1720 by Attempted (0); LMA Type: MD Barry Garcia, MD Dayton Garcia; LMA Size: 4; Inserted by: Barry SRNA documented in this encounter Social History Tobacco Use Types Packs/Day Years [...] PM EST documented as of this encounter OR Notes Anesthesia Postprocedure Evaluation - Cece Batista MD - 10/28/2021 11:51 AM EDT Department of Anesthesiology Post-procedure Note Patient: Blossom Samayoa Procedure Summary Date: 10/27/21 Room / Location: [address] MAIN OR Anesthesia Start: 1618 Anesthesia Stop: 1730 Procedure: CYSTO, RETROGRADE, URETEROPYELOGRAPHY (WRVU 2.37) (Bilateral Ureter) Diagnosis: (BILATERAL RENAL STONES) Surgeons: Crow Galvin Jr., MD Responsible Provider: Cece Batista MD Anesthesia Type: general ASA Status: 3 All Anesthesia Providers: Anesthesiologist: Idris Esparza MD; Cece Batista MD Student Nurse Employee Relation Manager: Caridad Reddy Vitals Value Taken Time BP 152/67 10/27/21 1800 Temp Pulse Resp SpO2 94 % 10/27/21 1800 Pain Level 3 10/27/21 1745 Patient Location: PACU/[facility] Level of Consciousness: Awake and Alert Pain Management: Satisfactory Analgesia PONV: None Cardiovascular Status: At Baseline and Hemodynamically Stable Respiratory Status: At Baseline and Room Air Postoperative Fluid Status: Intravascular EUvolemia Possible Anesthetic Complications: NONE apparent at time of evaluation Final Primary Anesthesia Type: General (The anesthetic type performed was the same as planned.) Comments: No problems today! CECE BATISTA MD Anesthesia Preprocedure Evaluation - Idris Esparza MD - 10/27/2021 3:52 PM EDT Pre-Anesthesia Evaluation for: Blossom Samayoa a 60 y.o. female. Procedure(s): CYSTO, RETROGRADE, URETEROPYELOGRAPHY (WRVU 2.37) Patient Active Problem List Diagnosis Date Noted ??? Cirrhosis 08/04/2020 ??? MOSES (obstructive sleep apnea) 07/29/2020 ??? Insomnia 07/29/2020 ??? 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 Hyperparathyroidism, primary 08/12/2019 ??? Abscess 02/19/2019 ??? Shock 01/04/2019 ??? Renal calculus, left 11/07/2018 ??? HTN (hypertension) 08/28/2018 ??? Gastroesophageal reflux 08/28/2018 ??? PTSD (post-traumatic stress disorder) 08/28/2018 ??? COPD (chronic obstructive pulmonary disease) 08/28/2018 ??? Asthma 08/28/2018 ??? Anxiety 08/28/2018 ??? Depression 08/28/2018 ??? Former smoker 08/28/2018 ??? Chronic prescription opiate use 08/28/2018 ??? Ventral hernia 07/22/2018 ??? Nephrolithiasis 07/09/2018 ??? Cardiomyopathy ??? Type 2 diabetes mellitus, without long-term current use of insulin ??? History of herpes simplex infection ??? LBBB (left bundle branch block) ??? Class 3 severe obesity with serious comorbidity and body mass index (BMI) of 50.0 to 59.9 in adult ??? Sarcoidosis Past Medical History: Diagnosis Date ??? Asthma ??? Bowel disease IBS ??? CHF (congestive heart failure) diag 2016 [facility] ??? Chronic lung disease sarcoidosis ??? Chronic [...] failure 'don't know if it's failure ??? watermelon inspector current use of opiate analgesic PCP ??? Mental health problem ??? Obstructive sleep apnea diag 2008 ??? Osteoma of ear canal ??? Vertigo balance prob,last fall early Jun. Past Surgical History: Procedure Laterality Date ??? IR ALL DRAINAGE PROCEDURES 02/20/2019 IR All Drainage Procedures 02/20/2019 Corby Flor MD [facility] INTERVENTION[facility] RAD ??? IR BIOPSY LIVER PERCUTANEOUS 07/01/2019 IR Biopsy Liver Percutaneous 07/01/2019 Corby Flor MD [facility] RAD ??? IR DRAIN CHECK/CHANGE/REMOVE 03/07/2019 IR Drain Check/Change/Remove 03/07/2019 Albert Mendez MD [facility] INTERVENT[facility] RAD ??? PRG ECHOENCEPHALOGRAPH REAL TIME Left 11/07/2018 ULTRASOUND USE (WRVU 0.63) performed by Crow Galvin Jr., MD at [facility] OR ??? PRG EMG, LARYNX N/A 08/12/2019 FACIAL NERVE MONITORING, SETUP LARYNGEAL (WRVU 1.57) performed by Emily Mcmahon MD at [facility] OR ??? PRG FLUOROSCOPY EXAM UP TO 1 HR PHY OR OTH HLTH CARE PROV N/A 09/26/2018 FLUOROSCOPY (WRVU 0.17) performed by Crow Galvin Jr., MD at [facility] OR ??? PRG FLUOROSCOPY EXAM UP TO 1 HR PHY OR OTH HLTH CARE PROV N/A 11/07/2018 FLUOROSCOPY (WRVU 0.17) performed by Crow Galvin Jr., MD at [facility] OR ??? PRG FLUOROSCOPY EXAM UP TO 1 HR PHY OR OTH HLTH CARE PROV N/A 11/18/2020 FLUOROSCOPY (WRVU 0.17) performed by Crow Galvin Jr., MD at [facility] OR ??? PRG US GUIDE INTRAOP Right 09/26/2018 ULTRASONIC GUIDANCE, INTRAOP (WRVU 1.2) performed by Crow Galvin Jr., MD at [facility] OR ??? PRO COLONOSCOPY, REMV LESN, SNARE N/A 03/26/2019 COLONOSCOPY, POLYPECTOMY, REMOVAL LESION BY SNARE (WRVU 4.67) performed by Abhinav Stacy MD at [facility] ENDOSCOPY ??? PRO COLONOSCOPY, REMV LESN, SNARE N/A 08/01/2021 COLONOSCOPY, POLYPECTOMY, REMOVAL LESION BY SNARE (WRVU 4.67) performed by Soham Hankins MD at [facility] ENDOSCOPY ? ? PRO CYSTO W URETEROSCOPY &/OR PYELOSCOPY, DX Right 09/26/2018 CYSTOURETEROSCOPY, DIAGNOSTIC (WRVU 5.75) performed by Crow Galvin Jr., MD at [facility] MAIN OR ? ? PRO CYSTO W URETEROSCOPY &/OR PYELOSCOPY, DX Left 11/07/2018 CYSTOURETEROSCOPY, DIAGNOSTIC (WRVU 5.75) performed by Crow Galvin Jr., MD at [facility] OR ??? PRO CYSTOSCOPY, INSERT URETERAL STENT Right 07/10/2018 CYSTO, STENT PLACEMENT (WRVU 2.82) performed by Viky Sears MD at [facility] OR ??? PRO CYSTOSCOPY, REMV CALCULUS, COMPLIC Right 09/26/2018 CYSTO, REMOVAL OF STENT, FOREIGN BODY, CALCULUS, COMPLICATED (WRVU 5.2) performed by Crow Galvin MD at [facility] MAIN OR ??? PRO CYSTOURETHROSCOPY, FULGUR .5-2CM LESN N/A 11/18/2020 CYSTO, FULGURATION OF BLADDER LESION, W OR W/O BX, 0.5 TO 2.0CM (WRVU 4.62) performed by Crow Galvin Jr., MD at [facility] OR ??? PRO CYSTOURETHROSCOPY, URETER CATHETER Right 07/10/2018 CYSTO, RETROGRADE, URETEROPYELOGRAPHY (WRVU 2.37) performed by Viky Sears MD at [facility] OR ??? PRO CYSTOURETHROSCOPY, URETER CATHETER Right 09/26/2018 CYSTO, RETROGRADE, URETEROPYELOGRAPHY, W/PCNL (WRVU 2.37) performed by Crow Galvin Jr., MD at [facility] OR ??? PRO CYSTOURETHROSCOPY, URETER CATHETER Bilateral 11/18/2020 CYSTO, RETROGRADE, URETEROPYELOGRAPHY (WRVU 2.37) performed by Crow Galvin Jr., MD at [facility] MAIN OR ??? PRO EXPLORATORY OF ABDOMEN N/A 01/05/2019 @EXPLORATORY LAPAROTOMY, WITH/WITHOUT BIOPSY(S) (WRVU 12.54) performed by Ace Henry MD at [facility] MAIN OR ??? PRO EXPLORATORY OF ABDOMEN N/A 01/07/2019 @EXPLORATORY LAPAROTOMY, WITH/WITHOUT BIOPSY(S) (WRVU 12.54) performed by Ace Henry MD at [facility] OR ??? PRO EXPLORE PARATHYROID GLANDS N/A 08/12/2019 PARATHYROIDECTOMY OR EXPLORATION OF PARATHYROID(S) (WRVU 15.6) performed by Emily Mcmahon MD at [facility] MAIN OR ??? PRO FREEING BOWEL ADHESION, ENTEROLYSIS N/A 01/05/2019 @LYSIS OF ADHESIONS, ABD. (WRVU 18.46) performed by Ace Henry MD at [facility] MAIN OR ? ? PRO PERCUTANEOUS NEPHROSTOLITHOTOMY/PYELOSTOLITHOTOMY > 2 CM Right 09/26/2018 NEPHROLITHOTOMY, (PCNL) PERCUTANEOUS, OVER 2CM (WRVU 23.5) performed by Crow Galvin Jr., MD at [facility] MAIN OR ? ? PRO PERCUTANEOUS NEPHROSTOLITHOTOMY/PYELOSTOLITHOTOMY > 2 CM Left 11/07/2018 NEPHROLITHOTOMY, (PCNL) PERCUTANEOUS, OVER 2CM (WRVU 23.5) performed by Crow Galvin Jr., MD at [facility] OR ? ? PRO PLCT NEPHROSTOMY CATH PRQ NEW ACCESS RS&I Right 09/26/2018 NEPHROSTOMY CATHETER, PERC, INC DX NEPHROSTOGRAM/URETEROGRAM, IMG GUIDANCE (WRVU 4.25) performed byCrow Glavin Jr., MD at [facility] MAIN OR ? ? PRO PLMT NEPHROSTOMY CATH PRQ NEW ACCESS RS&I Left 11/07/2018 NEPHROSTOMY CATHETER, PERC, INC DX NEPHROSTOGRAM/URETEROGRAM, IMG GUIDANCE (WRVU 4.25) performed byCrow Galvin Jr., MD at [facility] OR ??? PRO RENAL ENDOSCOPY, TREATMENT Left 11/07/2018 RENAL ENDOSCOPY W\FULG, W\WO\BX, VIA NEPHROSTOMY (WRVU 6.61) performed by Crow Galvin Jr., MD [facility] MAIN OR ??? PRO RESECT SMALL INTEST, SINGL RESEC/ANAS N/A 01/07/2019 @BOWEL RESECTION, SMALL INTESTINE SINGLE ANASTOMOSIS (WRVU 20.82) performed by Ace Henry MD at [facility] MAIN OR Social History Tobacco Use ??? Smoking status: Former Smoker Packs/day: 1.00 Years: 30.00 Pack years: 30.00 Types: Cigarettes Quit date: 07/23/2016 Years since quittin.2 ??? Smokeless tobacco: Never Used Substance Use Topics ??? Alcohol use: No Comment: 3 X a year Social History Substance and Sexual Activity Drug Use Yes ??? Types: Marijuana Comment: gummies, few times per month Allergies Allergen Reactions ??? Ketamine Other (See Comments) Hallucinations ??? Anafranil [Clomipramine] Other (See Comments) give me the flu ??? Augmentin [Amoxicillin-Pot Clavulanate] Hives and Itching ??? Erythromycin Hives and Itching ??? Macrobid [Nitrofurantoin Monohyd/M-Cryst] Other (See Comments) Causes depression ??? Sulfa (Sulfonamide Antibiotics) Hives Medications: MAR and/or home medications have been reviewed. Physical Exam: Preprocedure Vitals Current as of 10/27/21 1552 BP: 127/53 Pulse: 65 Resp: 18 SpO2: 96 Temp: 36.7 ??C (98.1 ??F) Height: 167.6 cm (5' 6) (10/27/21) Weight: 144.2 kg (318 lb) (10/27/21) BMI: 51.32 IBW: 59.3 kg (130 lb 10.4 oz) Last edited 10/27/21 1552 by DL Currently displaying vitals information from multiple entries within 90 minutes of most recent vitals. Airway Assessment: Mallampati: II TM distance: >3 FB Neck ROM: full Cardiovascular Assessment: Rhythm: regular Rate: normal Pulmonary Assessment: (+) decreased breath sounds Dental Assessment: Misc Assessment: IV access: Peripheral line Last Filed Perioperative Cognitive Screening None Anesthesia Plan: ASA 3 general, with a(n) intravenous induction I have seen and examined the patient. I have reviewed the medical record and pertinent laboratory information. I have noted the major medical issues as outlined in the problem list. Patient strongly believers her cardiomyopathy and cirrhosis is from sarcoidosis. Of note, she has never had her follow up stress test for worsening dyspnea. She has a know cardiomyopathy, with non-obstructive CAD from 2019 catheretization. She is appropriately NPO and denies GERD. I have reviewed risks from minor to major as outlined in the anesthesia consent form. I have highlighted risks related to airway management, cardiomyopathy, sleep apnea, and perioperative opioid therapy. She is aware that our care model is based on a team and I will be working with either a PRODUCTION ENGINEER TRACK or resident physician. A resident physician means a physician who is in training to be an anesthesiologist. The patient acknowledged these risks and would like to proceed with the anesthesia plan. Balanced GA. Patient is keen to proceed even in the absence new stress test information. Surgeons are assuring us this will be quick procedure. Region - Other Informed Consent: Anesthetic plan and risks discussed with patient. Plan discussed with PRODUCTION ENGINEER TRACK. Anesthesia Screening documented in this encounter Plan of Treatment Upcoming Encounters Date Type Specialty Care Team Description 03/15/2022 Office Visit Neurology Ryann Barfield APRN [facility] [place]UROLOG[place] [address] 03/23/2022 Appointment Radiology Hailey Mcclendon MD [facility] [address] [place] [address] 03/23/2022 Laboratory Appointment Lab 03/23/2022 Office Visit Gastroenterology Hailey Mcclendon MD [facility] [address] [place] [address] 05/23/2022 Procedure visit Maxillofacial Surgery Corby Montes MD [facility] [place] [address] documented as of this encounter Goals Goal Patient Goal Associated Recent Patient-Stated? Author Type Problems Progress meal Lifestyle Not on track No Jeet, timing/food (08/26/2020 Iman L, choices 9:40 AM EST) SHMUEL Note: Formatting of this note might be d ifferent from the original. Try tracking using my fitnesspal or note book Use your date book to keep track of thin gs you need to do to improve your health. Meal timing: consider eating biggest troy l mid day, phosphoric acid operator dinner, try not to eat after [...] (08/26/2020 9:40 AM EST) No Iman Marcano, SEAT JOINER CHAINSTITCH Note: Formatting of this note might be d ifferent from the original. Try just getting up at least once an luda r Recommend resistance training 3 times a week -can use your weights- 08/26/20- not on track with this, will work on it. sleep Lifestyle On track (08/26/2020 9:43 AM EST) No Iman Marcano, SEAT JOINER CHAINSTITCH Note: Formatting of this note might be d ifferent from the original. Try to be consistent with sleep. Goal 7 hours of sleep nightly. Recommend consistent sleep and wake time s, avoid electronics within one hour of sleep time Continue C pap stress Lifestyle On track (08/26/2020 9:40 AM EST) No Iman Marcano, SEAT JOINER CHAINSTITCH Note: Formatting of this note might be [...] or 1 c up Low fat plain Italian Yogurt or 3 eggs or 3 ounces of meat 3. Restart Protien shakes using Unsweete mariam [place] Milk 4. Consider Meal replacements such as Le na Cuisine or Healthy Choice (read label to reach 20 grams of protein) 5. Keep hard boiled eggs on hand 6. Aim for reducing fruit intake to 2 se rvings/day 1. Consider Investigating Deepka Stephanie 'What are you hungry for? 2. Restart Protien shakes using Unsweete mariam [place] Milk 3. When you feel well enough, boil a doz en hard boiled eggs Other (Enter personal goal) Lifestyle No Shaila Duffy I, RD Note: Formatting of this note might be d ifferent from the original. Nutrition Goals: 1. Consider Investigating Deepka Stephanie 'What are you hungry for? 2. Restart Protien shakes using Unsweete mariam [place] Milk 3. When you feel well enough, boil a doz en hard boiled eggs documented as of this encounter Visit Diagnoses Not on filedocumented in this encounter Administered Medications Inactive Administered Medications - up to 3 most recent administrations Medication Order MAR Action Action Date Dose Rate Site gentamicin (Garamycin) injection Given 10/27/2021 4:56 PM EDT 320 mg Intravenous, PRN, Starting on Arin 10/27/21 at 1656, Until Arin 10/27/21 at 1731, Anesthesia Intra-op, Routine lactated ringers infusion New Bag 10/27/2021 4:19 PM EDT 1,000 mL, at 100 mL/hr, Intravenous, CONTINUOUS, Starting on Arin 10/27/21 at 1630, Until Arin 10/27/21 at 1832, Day of Surgery (Day of Procedure) lidocaine (pf) (Xylocaine) (20 mg/mL) 2% Given 10/27/2021 4:29 P M EDT 100 mg injection syringe Intravenous, PRN, Starting on Arin 10/27/21 at 1629, Until Arin 10/27/21 at 1731, Anesthesia Intra-op, Routine midazolam (pf) (Versed) (1 mg/mL) multi-dose Given 10/27/2021 4: 26 PM EDT 1 mg injection Intravenous, PRN, Starting on Arin 10/27/21 at 1621, Until Arin 10/27/21 at 1731, Anesthesia Intra-op, Routine Given 10/27/2021 4:21 PM EDT 1 mg ondansetron (pf) (Zofran) (2 mg/mL) inje ction Given 10/27/2021 5:20 PM EDT 4 mg Intravenous, PRN, Starting on Arin 10/27/21 at 1720, Until Arin 10/27/21 at 1731, Anesthesia Intra-op, Routine PHENYLephrine Rate/Dose Change 10/27/2021 4:57 10 mcg/min 7.5 mL/hr (Talha-Synephrine) (80 mcg/mL) PM EDT in sodium chloride 0.9% 250 mL infusion Intravenous, CONTINUOUS PRN, Starting on Arin 10/27/21 at 1636, Until Arin 10/27/21 at 1731, Anesthesia Intra-op, Routine New Bag 10/27/2021 4:36 PM EDT 20 mcg/min 15 mL/hr propofoL (Diprivan) 10 mg/mL bolus injection Given 01/2022 4:29 PM EDT 100 mg (Anesthesia) Intravenous, PRN, Starting on Arin 10/27/21 at 1629, Until Arin 10/27/21 at 1731, Anesthesia Intra-op documented in this encounter Care Teams Storage Facility Rental Clerk Relationship Specialty Start Date End Date Trev Burr MD PCP - General Emergency Medicine 10/27/21 [address] [place] [address] documented as of this encounter
--- OUTSIDE RECORDS SUMMARY | 2022-02-08 01:49 | XMS_ITS | Encounter Summary ---
:1960 Author Organization [facility] [place] [address] Care Team Providers Name Role Phone Albert Zuleta MD Primary Care Provider Reason for Referral Diagnostic Test (Routine) - Pending Review Specialty Diagnoses / Procedures Referred By Contact Refer red To Contact Radiology Diagnoses History of nephrolithiasis Meghana Galvin Jr., MD Procedures CT Abdomen & Pelvis wo Contrast [facility] [place] [address] Referral ID Status Reason Start Expiration Visits Visits Date Date Requested Authorized [id number] Pending Specialty 09/15/2021 03/15/2023 1 1 Review Service Requested Encounter Details Date Type Department Care Team Description 09/15/2021 Orders Only [place] [facility]hana Galvin History of [facility] MD Megan [address] [place], [place] [address] UROLOGY DEPT. [phone] [place], [place] [address] Social History Tobacco Use Types [...] documented as of this encounter Miscellaneous Notes Addendum Note - Viky Saleh RN - 09/15/2021 7:48 AM EST Addended by: VIKY SALEH on: 09/15/2021 08:40 AM Modules accepted: Orders Addendum Note - Meghana Galvin Jr., MD - 09/15/2021 7:48 AM EST Addended by: MEGHANA GALVIN on: 09/15/2021 04:26 PM Modules accepted: Orders documented in this encounter Plan of Treatment Upcoming Encounters Date Type Specialty Care Team Description 03/15/2022 Office Visit Neurology Ryann Barfield APRN [facility] [address] [place] [address] 03/23/2022 Appointment Radiology Hailey Mcclendon MD [facility] [address] [place] [address] 03/23/2022 Laboratory Appointment Lab 03/23/2022 Office Visit Gastroenterology Hailey Mcclendon MD [facility] [place] [address] 05/23/2022 Procedure visit Maxillofacial Surgery Corby Montes MD [facility] [address] [place] [address] Scheduled Orders Name Type Priority Associated Diagnoses Order S chedule CT Abdomen & Pelvis Imaging Routine History of nephrolith iasis Expected: 09/15/2021 wo Contrast (Approximate), Expires: 2022 documented as of this encounter Goals Goal Patient Goal Associated Recent Patient-Stated? Author Type Problems Progress meal Lifestyle Not on track No Jeet, timing/food (08/26/2020 ilda Solitario 9:40 AM EST) [employer]ITAL CAMPAIGN FUNDRAISER Note: Formatting of this note might be d ifferent from the original. Try tracking using my fitnesspal or note book Use your date book to keep track of thin gs you need to do to improve your health. Meal timing: consider eating biggest troy l mid day, family consumer science teacher dinner, try not to eat after [...] (08/26/2020 9:40 AM EST) No Iman Marcano, CAPITAL CAMPAIGN FUNDRAISER Note: Formatting of this note might be d ifferent from the original. Try just getting up at least once an luda r Recommend resistance training 3 times a week -can use your weights- 08/26/20- not on track with this, will work on it. sleep Lifestyle On track (08/26/2020 9:43 AM EST) Iman Hannon, SHMUEL Note: Formatting of this note might be d ifferent from the original. Try to be consistent with sleep. Goal 7 hours of sleep nightly. Recommend consistent sleep and wake time s, avoid electronics within one hour of sleep time Continue C pap stress Lifestyle On track (08/26/2020 9:40 AM EST) No Iman Marcano, CAPITAL CAMPAIGN FUNDRAISER Note: Formatting of this note might be [...] or 1 c up Low fat plain Stateless Yogurt or 3 eggs or 3 ounces of meat 3. Restart Protien shakes using Unsweete mariam [place] Milk 4. Consider Meal replacements such as Le na Cuisine or Healthy Choice (read label to reach 20 grams of protein) 5. Keep hard boiled eggs on hand 6. Aim for reducing fruit intake to 2 se rvings/day 1. Consider Investigating Deepka Stephanie 'What are you hungry for? 2. Restart Protien shakes using Unsweete mariam [place] Milk 3. When you feel well enough, boil a doz en hard boiled eggs Other (Enter personal goal) Lifestyle No Shaila Duffy I, RD Note: Formatting of this note might be d ifferent from the original. Nutrition Goals: 1. Consider Investigating Deepka Stephanie 'What are you hungry for? 2. Restart Protien shakes using Unsweete mariam [place] Milk 3. When you feel well enough, boil a doz en hard boiled eggs documented as of this encounter Visit Diagnoses Diagnosis History of nephrolithiasis Personal history of urinary calculi documented in this encounter Care Teams Research Interviewer Relationship Specialty Start Date End Date Albert Zuleta MD PCP - General Family Medicine 01/17/17 10/26/21 [place] [address] documented as of this encounter
--- OUTSIDE RECORDS SUMMARY | 2022-02-08 01:49 | XMS_ITS | Encounter Summary ---
:1960 Author Organization [facility] [place] [address] Care Team Providers Name Role Phone Albert Zuleta MD Primary Care Provider Encounter Details Date Type Department Care Team Description 06/27/2021 Telephone Gastroenterology at [facility] [place] [address] Social History Tobacco Use Types Packs/Day [...] this encounter Miscellaneous Notes Telephone Encounter - Marta Devries - 06/27/2021 4:11 PM EST Blossom Samayoa [id number] Diagnosis/Indication: Colonoscopy ?? Sedation: Anesthesia ?? TImeframe: within 3 Weeks -- B. ?? Indication: Bleeding (BRBPR) ?? This procedure should be performed with: Any Endoscopist 1. Have you ever had a/an Colonoscopy before? Yes: Date 03/26/2019 If yes, did you have any problems with the procedure? No What type of sedation was used: General Anesthesia 2. Do you take any blood thinners or have you been diagnosed with a bleeding disorder that increasesyour risk of bleeding with procedures? No 3. Do you have a Pacemaker or Defibrillator device? No 4. Are you a diabetic? Yes: Controlled by diet or medication? Medication 5. Do you have any Allergies to Eggs, Latex or Medications? Yes: E-DH 6. Do you take any Oral Iron Supplements (Including multi-vitamins)? Yes (Multivitamin) 7. Do you have a history of three or more abdominal surgeries? Yes 8. Have you had a problem with sedation or anesthesia? Yes Vomiting 9. Do you use a c-pap machine or oxygen tank? C-Pap 10. Do you take prescription narcotic pain medications, including suboxone or methodone? Yes Vicodin 11. Do you have a preference regarding the gender of your provider? No Preference 12. Is there any other information you would like to us to note for the provider and nursing team who will perform your case? No 13. Say to patient: You must have a responsible green party who will drive you to your procedure, stay on campus for the entire duration of your procedure, and drive you home from your procedure? *Please Verify the height and weight, and adjust if height and/or weight have changed* Estimated body mass index is 51.81 kg/m?? as calculated from the following: Height as of 11/18/20: 167.6 cm (5' 6). Weight as of 12/28/20: 145.6 kg (321 lb). *Delete if not needed* Height: 5'6 Weight: 325 BMI: 52.5 Age:60 y.o. documented in this encounter Plan of Treatment Upcoming Encounters Date Type Specialty Care Team Description 03/15/2022 Office Visit Neurology Ryann Barfield APRN [facility] [address] [place] [address] 03/23/2022 Appointment Radiology Hailey Mcclendon MD [facility] [address] [place] [address] 03/23/2022 Laboratory Appointment Lab 03/23/2022 Office Visit Gastroenterology Hailey Mcclendon MD [facility] [address] [place] [address] 05/23/2022 Procedure visit Maxillofacial Surgery Corby Montes MD [facility] [address] [place] [address] documented as of this encounter Goals [...] consider eating biggest troy l mid day, substation operator transforming dinner, try not to eat after dinner-try [...] track (08/26/2020 9:40 AM EST) Iman Hannon, PSYCHIC READER Note: Formatting of this note might be d ifferent from the original. Try just getting up at least once an luda r Recommend resistance training 3 times a week -can use your weights- 08/26/20- not on track with this, will work on it. sleep Lifestyle On track (08/26/2020 9:43 AM EST) Iman Hannon, PSYCHIC READER Note: Formatting of this note might be [...] or 1 c up Low fat plain Guamanian Yogurt or 3 eggs or 3 ounces of meat 3. Restart Protien shakes using Unsweete mariam [place] Milk 4. Consider Meal replacements such as Le na Cuisine or Healthy Choice (read label to reach 20 grams of protein) 5. Keep hard boiled eggs on hand 6. Aim for reducing fruit intake to 2 se rvings/day 1. Consider Investigating Deepka Stephanie 'What are you hungry for? 2. Restart Protien shakes using Unsweete mariam [place] Milk 3. When you feel well enough, boil a doz en hard boiled eggs Other (Enter personal goal) Lifestyle No Shaila Duffy RD Note: Formatting of this note might be d ifferent from the original. Nutrition Goals: 1. Consider Investigating Deepka Stephanie 'What are you hungry for? 2. Restart Protien shakes using Unsweete mariam [place] Milk 3. When you feel well enough, boil a doz en hard boiled eggs documented as of this encounter Visit Diagnoses Not on filedocumented in this encounter Care Teams Ob/Gyn Nurse Relationship Specialty Start Date End Date Albert Zuleta MD PCP - General Family Medicine 01/17/17 10/26/21 [address] [place] [phone] documented as of this encounter
--- OUTSIDE RECORDS SUMMARY | 2022-02-08 01:49 | XMS_ITS | Encounter Summary ---
:1960 Author Organization [facility] [place] [address] Care Team Providers Name Role Phone Albert Zuleta MD Primary Care Provider Encounter Details Date Type Department Care Team Description 09/13/2021 Telephone Gastroenterology at [facility] Hailey Castano [facility] Maciel [place]orenz[place] [address] DEPT [phone] Social History Tobacco Use Types Packs/Day Years [...] this encounter Miscellaneous Notes Telephone Encounter - Hailey Castano CMA - 09/13/2021 8:51 AM EST Medication Prior Authorization 4L Gastroenterology / [place] [address] Subscriber Insurance: [employer] Phone: Fax: Physician: Hailey Mcclendon ?? Return Pharmacy: Phone: Fax: Medication Requested: Xifaxan Strength: 550 mg Frequency: BID Disp.: Refills: Currently taking: Diagnosis for this medication: H.E ICD-10 code: Prior medications trialed in this patient: Medication: Outcome/Adverse Reactions: Decision: approved Tracking number/Case number/Reference number: Effective date: 07/23/2021 - 03/12/2022 documented in this encounter Plan of Treatment Upcoming Encounters Date Type Specialty Care Team Description 03/15/2022 Office Visit Neurology Ryann Barfield APRN [facility] [address] [place] [address] 03/23/2022 Appointment Radiology Hailey Mcclendon MD [facility] [address] [place] [address] 03/23/2022 Laboratory Appointment Lab 03/23/2022 Office Visit Gastroenterology Hailey Mcclendon MD [facility] [address] [place] [address] 05/23/2022 Procedure visit Maxillofacial Surgery Corby Montes MD [facility] [address] [place] [address] documented as of this encounter Goals [...] consider eating biggest troy l mid day, personal property appraiser dinner, try not to eat after dinner-try [...] or 1 c up Low fat plain Nigerian Yogurt or 3 eggs or 3 ounces of meat 3. Restart Protien shakes using Unsweete mariam [place] Milk 4. Consider Meal replacements such as Le na Cuisine or Healthy Choice (read label to reach 20 grams of protein) 5. Keep hard boiled eggs on hand 6. Aim for reducing fruit intake to 2 se rvings/day 1. Consider Investigating Deepka Stephanie 'What are you hungry for? 2. Restart Protien shakes using Unsweete mraiam [place] Milk 3. When you feel well enough, boil a doz en hard boiled eggs Other (Enter personal goal) Lifestyle No Shaila Duffy I, RD Note: Formatting of this note might be d ifferent from the original. Nutrition Goals: 1. Consider Investigating Salena Brown 'What are you hungry for? 2. Restart Protien shakes using Unsweete mariam [place] Milk 3. When you feel well enough, boil a doz en hard boiled eggs documented as of this encounter Visit Diagnoses Not on filedocumented in this encounter Care Teams Yard Supervisor Cotton Gin Relationship Specialty Start Date End Date Albert Zuleta MD PCP - General Family Medicine 01/17/17 10/26/21 [address] [place] [address] documented as of this encounter
--- OUTSIDE RECORDS SUMMARY | 2022-02-08 01:49 | XMS_ITS | Encounter Summary ---
:1960 Author Organization [facility] Address [facility] [place] [address] Care Team Providers Name Role Phone Albert Zuleta MD Primary Care Provider Encounter Details Date Type Department Care Team Description 09/12/2021 Laboratory Appointment Lab 3L [facility] Cirrhosis of liver [facility] without ascites, [facility] unspecifi ed hepatic [place] [address] Social History Tobacco Use Types Packs/Day Years [...] Office Visit Neurology Ryann Barfield APRN [facility] [address] [place] [address] 03/23/2022 Appointment Radiology Hailey Mcclendon MD [facility] [address] [place] [address] 03/23/2022 Laboratory Appointment Lab 03/23/2022 Office Visit Gastroenterology Hailey Mcclendon MD [facility] [address] [place] [address] 05/23/2022 Procedure visit Maxillofacial Surgery Corby Montes MD [facility] [address] [place] [address] documented as of this encounter Goals [...] consider eating biggest troy l mid day, set up mechanic stamping machines dinner, try not to eat after dinner-try [...] track (08/26/2020 9:40 AM EST) Iman Hannon, ENROLLMENT MANAGEMENT MANAGER Note: Formatting of this note might be d ifferent from the original. Try just getting up at least once an luda r Recommend resistance training 3 times a week -can use your weights- 08/26/20- not on track with this, will work on it. sleep Lifestyle On track (08/26/2020 9:43 AM EST) Iman Hannon, ENROLLMENT MANAGEMENT MANAGER Note: Formatting of this note might [...] or 1 c up Low fat plain Czech Yogurt or 3 eggs or 3 ounces of meat 3. Restart Protien shakes using Unsweete mariam [place] Milk 4. Consider Meal replacements such as Le na Cuisine or Healthy Choice (read label to reach 20 grams of protein) 5. Keep hard boiled eggs on hand 6. Aim for reducing fruit intake to 2 se rvings/day 1. Consider Investigating Deepka Stephanie 'What are you hungry for? 2. Restart Protien shakes using Unsweete mariam [place] Milk 3. When you feel well enough, boil a doz en hard boiled eggs Other (Enter personal goal) Lifestyle No Shaila Duffy RD Note: Formatting of this note might be d ifferent from the original. Nutrition Goals: 1. Consider Investigating Deepka Stephanie 'What are you hungry for? 2. Restart Protien shakes using Unsweete mariam [place] Milk 3. When you feel well enough, boil a doz en hard boiled eggs documented as of this encounter Procedures Procedure Name Priority Date/Time Associated Comments Diagnosis HEMOGRAM Routine 09/12/2021 1:44 PM Cirrhosis of liver Res ults for this EST without ascites, procedure a re in unspecified hepatic the resu lts cirrhosis type section. DIFFERENTIAL, Routine 09/12/2021 1:44 PM Cirrhosis of liver Re sults for this AUTOMATED EST without ascites, procedure a re in unspecified hepatic the resu lts cirrhosis type section. HC ALPHA FETOPROTEIN Routine 09/12/2021 1:44 PM Cirrhosis of l iver Results for this TUMOR MARKER EST without ascites, procedure a re in unspecified hepatic the resu lts cirrhosis type section. HC PROTHROMBIN TIME Routine 09/12/2021 1:44 PM Cirrhosis of li jayla Results for this EST without ascites, procedure a re in unspecified hepatic the resu lts cirrhosis type section. HC CBC,PLT & AUTO DIFF Routine 09/12/2021 1:44 PM Cirrhosis of liver EST without ascites, unspecified hepatic cirrhosis type COMPREHENSIVE Routine 09/12/2021 1:44 PM Cirrhosis of liver Re sults for this METABOLIC PANEL EST without ascites, procedur e are in (NON-FASTING) unspecified hepatic the res ults cirrhosis type section. documented in this encounter Results (ABNORMAL) Differential, Automated (09/12/2021 1:44 PM EST) [facility] Method Time Signature Neutrophils % 66.7 % [facility] Neutr Abs (ANC) 6.96 (H) 1.70 - [facility] 6.10 [facility] x10(3)/[facility] LABORATORY Lymphocytes % 24.6 % [facility] Lymphocytes Abs 2.6 0.9 - 3.2 [facility] x10(3)/[facility] LABORATORY Monocytes % 6.9 % [facility] Monocyte Abs 0.7 0.3 - 0.9 [facility] x10(3)/[facility] LABORATORY Eosinophils % 1.4 % [facility] Eosinophils Abs 0.2 0.0 - 0.4 [facility] x10(3)/[facility] LABORATORY Basophils % 0.2 % [facility] Basophils Abs 0.0 0.0 - 0.1 [facility] x10(3)/[facility] LABORATORY Immature Gran % 0.20 % [facility] Comment: Immature granulocytes(IG's)percentage an d absolute count will include metamyelocytes, myelocytes, and promyelo cytes. Blood smears from CBCs yielding IG's will be scanned manually for concor dance. If this scan disagrees with the automated IG or if promyelocytes are not ed, a manual differential will be performed. Irina Gran Abs 0.02 0.00 - 0.04 x10(3)/[facility] Specimen Anatomical Collection Method Collection Time Receive d Time (Source) Location / / Volume Laterality Blood 09/12/2021 1:44 PM 2 2:22 EST PM EST Resulting Agency Comment Spec In Lab Hailey Mcclendon MD HEMATOLOGY ORDERABLES Performing Organization Address City/[facility]/ZIP [place] [address] (ABNORMAL) Hemogram (09/12/2021 1:44 PM EST) Analysis Performed At Patho logist Time Signature WBC 10.4 (H) 4.0 - 9.5 [facility] x[facility] LABORATORY RBC 3.58 (L) 4.00 - [place] 5.21 [facility] x10(6)/[facility] LABORATORY Hemoglobin 11.7 11.7 - [facility] 15.5 g/dL [facility] Hematocrit 35.3 (L) 35.7 - [facility] 45.8 % [facility]OR[facility]ORY MCV 98.6 (H) 82.6 - [facility] 94.4 [facility] LABORATORY MCH 32.7 (H) 27.1 - [facility] 32.0 pg [facility] MCHC 33.1 31.7 - [facility] 35.0 g/dL [facility] Platelets 197 145 - 357 [facility] x10(3)/[facility] LABORATORY RDWSD 46.4 (H) 37.0 - [facility] 46.0 [facility] LABORATORY RDWCV 13.0 11.5 - [facility] 14.1 % [facility] LABORATORY MPV 9.9 7.6 - 12.9 [facility] LABORATORY nRBC % Auto 0.0 % [facility] nRBC Abs Auto 0.000 0.000 - [facility] 0.000 [facility] x10(3)/[facility] LABORATORY Specimen Anatomical Collection Method Collection Time Receive d Time (Source) Location / / Volume Laterality Blood 09/12/2021 1:44 PM 2 2:22 EST PM EST Resulting Agency Comment Spec In Lab Hailey Mcclendon MD HEMATOLOGY ORDERABLES Performing Organization Address City/State/[place] [address] AFP tumor marker (09/12/2021 1:44 PM EST) athologist Signature AFP 2.4 <=8.3 ng/mL [facility] Specimen Anatomical Collection Method Collection Time Receive d Time (Source) Location / / Volume Laterality Blood 09/12/2021 1:44 PM 2 2:22 EST PM EST Resulting Agency Comment Spec In Lab Hailey Mcclendon MD CHEMISTRY ORDERABLES Performing Organization Address City/[facility]/[place] [address] (ABNORMAL) Prothrombin Time (09/12/2021 1:44 PM EST) athologist [facility] PT 13.7 (H) 9.4 - 12.5 [facility] LABORATORY INR 1.2 [facility] Comment: An INR <2.0 [...] Mcclendon MD HEMATOLOGY ORDERABLES Performing Organization Address City/[facility]/[place] [address] (ABNORMAL) Comprehensive metabolic panel (non-fasting) (09/12/2021 1:44 PM EST) athologist [facility] Glucose Lvl 115 65 - 199 [facility] mg/dL [facility] Comment: Diabetes: >=200 mg/dL plus symp toms BUN 15 8 - 18 mg/dL [facility] Creatinine 1.16 0.70 - 1.20 mg/dL [facility] Sodium 137 135 - 145 mmol/L [facility] Potassium 4.4 3.5 - 5.0 mmol/L [facility] Comment: Please note: ??Patients with WBC >100,00 0 may have falsely elevated Potassium levels. ??For accurate Potassium quantif ication in these patients send serum separator tube (gold top) for subsequent determinations. ??Contact the Clinical Chemistry Laboratory if there are any qu estions. Chloride 107 98 - 107 mmol/L [facility] CO2 12 (L) 22 - 31 mmol/L [facility] Anion Gap 18 (H) 5 - 15 mmol/L [facility] Calcium 9.5 8.5 - 10.5 mg/dL [facility] Total Protein 8.0 6.1 - 8.0 g/dL [facility] Albumin 4.0 3.2 - 5.2 g/dL [facility] AST 31 (H) 0 - 30 unit/L [facility] ALT 17 0 - 30 unit/L [facility] Alk Phos 81 35 - 105 unit/L [facility] Total Bilirubin 1.0 0.2 - 1.3 mg/dL [facility] Estimated GFR 51 (L) >=60 mL/min/1.73 m?? [facility] Comment: This patient? s [...] Organization Address City/State/ZIP Code Phon e Number [place] [phone] documented in this encounter Visit Diagnoses Diagnosis Cirrhosis of liver without ascites, unsp ecified hepatic cirrhosis type documented in this encounter Care Teams Math And Physics Instructor Relationship Specialty Start Date End Date Albert Zuleta MD PCP - General Family Medicine 01/17/17 10/26/21 [address] [place] [address] documented as of this encounter
--- OUTSIDE RECORDS SUMMARY | 2022-02-08 01:49 | XMS_ITS | Encounter Summary ---
:1960 Author Organization [facility] [place] [address] Care Team Providers Name Role Phone Albert Zuleta MD Primary Care Provider Encounter Details Date Type Department Care Team Description 03/17/2021 Hospital Encounter Non-Invasive Cardiology [facility] Palpitations Lab Hailey Akhtar MD [facility] [place] [address] [place] [address] [phone] (Wo rk) Social History Tobacco Use Types [...] Ryann Barfield, [facility] [place] [address] 03/23/2022 Appointment Radiology Hailey Mcclendon MD [facility] [address] [place] [address] 03/23/2022 Laboratory Appointment Lab 03/23/2022 Office Visit Gastroenterology Hailey Mcclendon MD [facility] [place] [address] 05/23/2022 Procedure visit Maxillofacial Surgery Corby Montes MD [facility] [place] [address] [place] [address] documented as of this encounter Goals Goal Patient Goal Associated Recent Patient-Stated? Author Type Problems Progress meal Lifestyle Not on track No Jeet, timing/food (08/26/2020 ilda Solitario 9:40 AM EST) WOOD FINISHER APPRENTICE Note: Formatting of this note might be d ifferent from the original. Try tracking using my fitnesspal or note book Use your date book to keep track of thin gs you need to do to improve your health. Meal timing: consider eating biggest troy l mid day, tunnel kiln operator dinner, try not to eat after [...] or 1 c up Low fat plain Vietnamese Yogurt or 3 eggs or 3 ounces of meat 3. Restart Protien shakes using Unsweete mariam [place] Milk 4. Consider Meal replacements such as Le na Cuisine or Healthy Choice (read label to reach 20 grams of protein) 5. Keep hard boiled eggs on hand 6. Aim for reducing fruit intake to 2 se rvings/day 1. Consider Investigating Deepka Stephanie 'What are you hungry for? 2. Restart Protien shakes using Unsweete mariam [place] Milk 3. When you feel well enough, boil a doz en hard boiled eggs Other (Enter personal goal) Lifestyle No Shaila Duffy I, RD Note: Formatting of this note might be d ifferent from the original. Nutrition Goals: 1. Consider Investigating Deepka Stephanie 'What are you hungry for? 2. Restart Protien shakes using Unsweete mariam [place] Milk 3. When you feel well enough, boil a doz en hard boiled eggs documented as of this encounter Procedures Procedure Name Priority Date/Time Associated Diagnosis Comme nts HOLTER MONITOR 48 Routine 03/17/2021 2:27 PM Palpitations Resu lts for this HOUR EDT procedure are i n the results section. documented in this encounter Results Holter Monitor 48hr (03/17/2021 2:27 PM EDT) Component Value Ref Test Analysis Performed Pathologis t Range Method Time At Signature Hookup Date 20210317 [facility] Hookup Time 206803 [facility] Acquisition 413451 S HE[facility] Duration SYSTEM #QRS COMPLEXES 187115 [facility] # OF VENTRICULAR 18 [facility] [...] 63 BPM [facility] Max. Heart Rate [id number] [facility]ART[facility] Time/Date SYSTEM Min. Heart Rate [id number] [facility]ART[facility] Time/Date SYSTEM INTERPRETATION 03/29/2021 [facility] SYSTEM [...] Palpitations documented in this encounter Care Teams Motion Picture Set Worker Relationship Specialty Start Date End Date Albert Zuleta MD PCP - General Family Medicine 01/17/17 10/26/[address] [place] [address] documented as of this encounter
--- OUTSIDE RECORDS SUMMARY | 2022-02-08 01:49 | XMS_ITS | Encounter Summary ---
:1960 Author Organization [facility] [place] [address] Care Team Providers Name Role Phone Albert Zuleta MD Primary Care Provider Reason for Visit Reason Onset Date Comments Results 03/29/2021 holter Encounter Details Date Type Department Care Team Description 03/29/2021 Telephone Cardiology at [facility] Ibis Vasquez RN Results (holter) [place] [address] Social History Tobacco Use Types Packs/Day [...] Telephone Encounter - Ibis Vasquez RN - 03/29/2021 5:[address] As per Dr. Drew Message Benign Holter. No AF or flutter noted. Sxs correlate with normal sinus rhythm. Cuco Clear connection established. Message given. Teach back method. Sakshi wonders what next? When this nurse asked her about contacting her PCP she refused. Assured her I will forward this message on to Dr. Drew for his review. She reports she is still having the same symptoms. Ibis Vasquez, RN 4A Cardiology documented in this encounter Plan of Treatment Upcoming Encounters Date Type Specialty Care Team Description 03/15/2022 Office Visit Neurology Ryann Barfield, [facility] [place], [place] [address] 03/23/2022 Appointment Radiology Hailey Mcclendon MD [facility] [address] [place] [address] 03/23/2022 Laboratory Appointment Lab 03/23/2022 Office Visit Gastroenterology Hailey Mcclendon MD [facility] [address] [place] [address] 05/23/2022 Procedure visit Maxillofacial Surgery Corby Montes MD [facility] [address] [place] [address] documented as of this encounter Goals Goal Patient Goal Associated Recent Patient-Stated? Author Type Problems Progress meal Lifestyle Not on track Sandra Marcano, timing/food (08/26/2020 ilda Solitario 9:40 AM EST) DIGITAL SALES MANAGER Note: Formatting of this note might be d ifferent from the original. Try tracking using my fitnesspal or note book Use your date book to keep track of thin gs you need to do to improve your health. Meal timing: consider eating biggest troy l mid day, software project manager dinner, try not to eat after [...] or 1 c up Low fat plain Algerian Yogurt or 3 eggs or 3 ounces of meat 3. Restart Protien shakes using Unsweete mariam [place] Milk 4. Consider Meal replacements such as Le na Cuisine or Healthy Choice (read label to reach 20 grams of protein) 5. Keep hard boiled eggs on hand 6. Aim for reducing fruit intake to 2 se rvings/day 1. Consider Investigating Deepka Stephanie 'What are you hungry for? 2. Restart Protien shakes using Unsweete mariam [place] Milk 3. When you feel well enough, boil a doz en hard boiled eggs Other (Enter personal goal) Lifestyle No Shaila Duffy RD Note: Formatting of this note might be d ifferent from the original. Nutrition Goals: 1. Consider Investigating Deepka Stephanie 'What are you hungry for? 2. Restart Protien shakes using Unsweete mariam [place] Milk 3. When you feel well enough, boil a doz en hard boiled eggs documented as of this encounter Visit Diagnoses Not on filedocumented in this encounter Care Teams Aircraft Launch And Recovery Technician Relationship Specialty Start Date End Date Albert Zuleta MD PCP - General Family Medicine 01/17/17 10/26/21 [address] [place] [address] documented as of this encounter
--- OUTSIDE RECORDS SUMMARY | 2022-02-08 01:49 | XMS_ITS | Encounter Summary ---
:1960 Author Organization [facility] [place] [address] Care Team Providers Name Role Phone Albert Zuleta MD Primary Care Provider Encounter Details Date Type Department Care Team Description 08/23/2021 Orders Only Urology Capri Krishna MD [facility] [address] UROLOGY DEPT [phone] [place], [place] [address] (Wo rk) Social History Tobacco [...] Description 03/15/2022 Office Visit Neurology Ryann Barfield, SALES SERVICE PROMOTER [facility] [address] [place], [place] [address] 03/23/2022 Appointment Radiology Hailey Mcclendon MD [facility] [address] [place] [place] [address] 03/23/2022 Laboratory Appointment Lab 03/23/2022 Office Visit Gastroenterology Hailey Mcclendon MD [facility] [address] [place] [address] 05/23/2022 Procedure visit Maxillofacial Surgery Corby Montes MD [facility] [address] [place] [address] documented [...] consider eating biggest troy l mid day, auto glass technician dinner, try not to eat after [...] or 1 c up Low fat plain Turkish Yogurt or 3 eggs or 3 ounces of meat 3. Restart Protien shakes using Unsweete mariam [place] Milk 4. Consider Meal replacements such as Le na Cuisine or Healthy Choice (read label to reach 20 grams of protein) 5. Keep hard boiled eggs on hand 6. Aim for reducing fruit intake to 2 se rvings/day 1. Consider Investigating Deepka Stephanie 'What are you hungry for? 2. Restart Protien shakes using Unsweete mariam [place] Milk 3. When you feel well enough, boil a doz en hard boiled eggs Other (Enter personal goal) Lifestyle No Shaila Duffy RD Note: Formatting of this note might be d ifferent from the original. Nutrition Goals: 1. Consider Investigating Deepka Stephanie 'What are you hungry for? 2. Restart Protien shakes using Unsweete mariam [place] Milk 3. When you feel well enough, boil a doz en hard boiled eggs documented as of this encounter Visit Diagnoses Not on filedocumented in this encounter Care Teams Financial Rep Relationship Specialty Start Date End Date Albert Zuleta MD PCP - General Family Medicine 01/17/17 10/26/21 [place] [address] documented as of this encounter
--- OUTSIDE RECORDS SUMMARY | 2022-02-08 01:49 | XMS_ITS | Encounter Summary ---
:1960 Author Organization [facility] [place] [address] Care Team Providers Name Role Phone Albert Zuleta MD Primary Care Provider Encounter Details Date Type Department Care Team Description 08/01/2021 Hospital Encounter Gastroenterology at [facility] [place] [address] CENTER [phone] GASTROENEROLOGY [place], [place] [address] Social History Tobacco Use Types [...] Sign Reading Time Taken Comments Blood Pressure 103/59 08/01/2021 9:00 AM EST Pulse 66 08/01/2021 7:07 AM EST Temperature 36.2 ??C (97.2 ??F) 08/01/2021 7:07 AM EST Respiratory Rate 18 08/01/2021 9:00 AM EST Oxygen Saturation 97% 08/01/2021 9:00 AM EST Inhaled Oxygen Concentration - - Weight 147.4 kg (325 lb) 08/01/2021 7:07 AM EST Height 167.6 cm (5' 6) 08/01/2021 7:07 AM EST Body Mass Index 52.46 08/01/2021 7:07 AM EST documented in this encounter Discharge Instructions Discharge Alon Luz RN - 08/01/2021 8:26 AM EST Colonoscopy: [...] occurs, please contact your Doctor. Please call [phone] before 8pm Mon-Fri with problems, questions or concerns. If you call after 8pm or on weekends, call the Hospital at [phone] and ask to speak to the Cath Lab Technologist promotions associate and the foreman or supervisor and operator will contact that person for you. When should you call for help? Call [phone] anytime you think you may need emergency [...] any problems. Where can you learn more? [facility] View your After Visit Summary and more online at [email or web address] If you would like to provide feedback about your hospital experience, please call the Office of Patient and Family Relations at . If you have received this After Visit Summary in error, please immediately return it in person to the department, or notify the [facility] Privacy Office by calling toll free at between the hours of 8AM and 5PM to arrange for our retrieval of the documents at no cost to you. Content Version: 12.2 ?? 4770-2351 [employer] Care instructions adapted under license by [facility]. If you have questions about a medical condition or this instruction, always ask your healthcare professional. [employer] disclaims any warranty or liability for your [...] Hankins MD - 08/01/2021 7:40 AM EST [facility] Procedure Note Patient Name: Blossom Samayoa : [id number] MR#: [id number] Case Date: 08/01/2021 Surgeon: Surgeon(s) and Role: [...] 03/15/2022 Office Visit Neurology Ryann Barfield APRN [facility] NEUR[facility] [place] [address] 03/23/2022 Appointment Radiology Hailey Mcclendon MD [facility] [place] [address] 03/23/2022 Laboratory Appointment Lab 03/23/2022 Office Visit Gastroenterology Hailey Mcclendon MD [facility] [place] [address] 05/23/2022 Procedure visit Maxillofacial Surgery Corby Montes MD [facility] [address] [place] [address] documented as of this encounter Goals Goal Patient Goal Associated Recent Patient-Stated? Author Type Problems Progress meal Lifestyle Not on track No Jeet, timing/food (08/26/2020 ilda Solitario 9:40 AM EST) ACQUISITIONS LOGISTICS ANALYST Note: Formatting of this note might be d ifferent from the original. Try tracking using my fitnesspal or note book Use your date book to keep track of thin gs you need to do to improve your health. Meal timing: consider eating biggest troy l mid day, laborer chicken farm dinner, try not to eat after dinner-try [...] 3. Restart Protien shakes using Unsweete mariam [place] Milk 4. Consider Meal replacements such as Le na Cuisine or Healthy Choice (read label to reach 20 grams of protein) 5. Keep hard boiled eggs on hand 6. Aim for reducing fruit intake to 2 se rvings/day 1. Consider Investigating Deepka Stephanie 'What are you hungry for? 2. Restart Protien shakes using Unsweete mariam [place] Milk 3. When you feel well enough, boil a doz en hard boiled eggs Other (Enter personal goal) Lifestyle No Shaila Duffy I, RD Note: Formatting of this note might be d ifferent from the original. Nutrition Goals: 1. Consider Investigating Deepka Stephanie 'What are you hungry for? 2. Restart Protien shakes using Unsweete mariam [place] Milk 3. When you feel well enough, [...] Component Value Ref Test Analysis Performed At [facility] Range Method Time Signature Surgical [id number] ? Location: ; [facility]; [facility] Pathology [place] Report The signing pathologist has (i) examined the relevant preparation(s) for the [facility] specimen(s) and (ii) rendered or confirmed the diagnosis(es) . HOSPITAL LABORATORY . ?Surgic al Pathology DIAGNOSIS A - Polyps TC 2 mm, DC 3 mm, excision: Tubular adenoma. Hyperplastic polyp. Electronically signed by: ?Blake MD, Snow Verified: ??08/05/2021 17:20 ??Pathologist Performed at: ??-[facility] Dept. of Pathology, [place], [place] SPECIMEN(S) SUBMITTED A - Polyps TC [...] MD PATHOLOGY/CYTOLOGY ORDERABLE S Performing Organization Address City/[facility]/[place] [address] Specimen to Pathology (08/01/2021 8:19 AM EST) Specimen Anatomical Collection Method Collection Time Receive d Time (Source) Location / / Volume Laterality AP Specimen 08/01/2021 8:19 AM 8:19 EST AM EST Narrative [facility] - 08/01/2021 8:19 AM EST Specimen requisition ordered. ??Separate Pathology report to follow Soham Hankins MD PATHOLOGY/CYTOLOGY ORDERABLE S Performing Organization Address City/State/[place] [address] COLONOSCOPY (08/01/2021 7:27 AM EST) Component Value Ref Test Analysis Performed At [facility] gist Range Method Time Signature COLONOSCOPY [facility]OVATION Endoscopy Procedure Date: 08/01/2021 7:27 AM ? Patient Name: Blossom Samayoa ? Date of : 1960 ? Age: 60 ? Order #: [id number] ? Instrument Name: [id number] ? Procedure: ? Colonoscopy Indications: ? Hematochezia, Rectal bleeding Providers: ? Jeff Faustin, BRYAN , ? Ciara Martin, Fruit Tester Referring : ?Albert Zuleta Medicines: ? Monitored Anesthesia Care [...] was evaluat ed using ? the BBPS (Sarbari Bowel Prepar ation ? Scale) with scores [...] mL/hr 100 mL/hr, Intravenous, CONTINUOUS, Starting on Sun08/01/21 at 0730, Until Sun08/01/21 at [...] (Intra-Procedure) documented in this encounter Care Teams Combatant Diver Qualified Relationship Specialty Start Date End Date Albert Zuleta MD PCP - General Family Medicine 01/17/17 10/26/21 [address] [place] [address] documented as of this encounter
--- OUTSIDE RECORDS SUMMARY | 2022-02-08 01:49 | XMS_ITS | Encounter Summary ---
:1960 Author Organization [facility] [place] [address] Care Team Providers Name Role Phone Albert Zuleta MD Primary Care Provider Encounter Details Date Type Department Care Team Description 10/26/2021 Orders Only Urology Avani Huynh, PA [facility] [place] [address] UROLOGY [phone] [place], [place] [address] (Wo rk) Social History Tobacco [...] 03/15/2022 Office Visit Neurology Ryann Barfield, [facility] DR [place], [place] [address] 03/23/2022 Appointment Radiology Hailey Mcclendon MD [facility] [address] [place] [address] 03/23/2022 Laboratory Appointment Lab 03/23/2022 Office Visit Gastroenterology Hailey Mcclendon MD [facility] [address] [place] [address] 05/23/2022 Procedure visit Maxillofacial Surgery Corby Montes MD [facility] [address] [place] [address] documented as of this encounter Goals [...] consider eating biggest troy l mid day, tax agent dinner, try not to eat after dinner-try [...] or 1 c up Low fat plain [place] Yogurt or 3 eggs or 3 ounces of meat 3. Restart Protien shakes using Unsweete mariam [place] Milk 4. Consider Meal replacements such as Le na Cuisine or Healthy Choice (read label to reach 20 grams of protein) 5. Keep hard boiled eggs on hand 6. Aim for reducing fruit intake to 2 se rvings/day 1. Consider Investigating Deepka Stephanie 'What are you hungry for? 2. Restart Protien shakes using Unsweete mariam [place] Milk 3. When you feel well enough, boil a doz en hard boiled eggs Other (Enter personal goal) Lifestyle No Shaila Duffy RD Note: Formatting of this note might be d ifferent from the original. Nutrition Goals: 1. Consider Investigating Deepka Stephanie 'What are you hungry for? 2. Restart Protien shakes using Unsweete mariam [place] Milk 3. When you feel well enough, boil a doz en hard boiled eggs documented as of this encounter Visit Diagnoses Not on filedocumented in this encounter Care Teams Screen Printing Machine Loader Unloader Relationship Specialty Start Date End Date Albert Zuleta MD PCP - General Family Medicine 01/17/17 10/26/21 [place] [address] documented as of this encounter
--- OUTSIDE RECORDS SUMMARY | 2022-02-08 01:49 | XMS_ITS | Encounter Summary ---
:1960 Author Organization [facility] [place] [address] Care Team Providers Name Role Phone Albert Zuleta MD Primary Care Provider Encounter Details Date Type Department Care Team Description 08/16/2021 Orders Only Urology at [facility] [place] Crow Galvin Jr., Gross hematuria [facility] [place] [address] [facility] [phone] UROLOGY DEPT. [place], [place] [address] (Wo rk) Social History Tobacco [...] Description 03/15/2022 Office Visit Neurology Ryann Barfield, ASSEMBLER TUBING [facility] [address] [place], [place] [address] 03/23/2022 Appointment Radiology Hailey Mcclendon MD [facility] [address] [place] [address] 03/23/2022 Laboratory Appointment Lab 03/23/2022 Office Visit Gastroenterology Hailey Mcclendon MD [facility] [address] [place] [address] 05/23/2022 Procedure visit Maxillofacial Surgery Corby Montes MD [facility] [address] [place] [address] Scheduled Orders Name Type Priority Associated Diagnoses Order S chedule Urine culture Clean Microbiology Routine Gross hematuria Expec tacos: 08/16/2021 Catch Urine (Approximate), Expires: 2022 documented as of this encounter Goals Goal Patient Goal Associated Recent Patient-Stated? Author Type Problems Progress meal Lifestyle Not on track Sandra Marcano timing/food (08/26/2020 ilda Solitario 9:40 AM EST) ASSEMBLER TUBING Note: Formatting of this note might be d ifferent from the original. Try tracking using my fitnesspal or note book Use your date book to keep track of thin gs you need to do to improve your health. Meal timing: consider eating biggest troy l mid day, space scheduler dinner, try not to eat after dinner-try [...] track (08/26/2020 9:40 AM EST) Iman Hannon, ASSEMBLER TUBING Note: Formatting of this note might be [...] or 1 c up Low fat plain [place] Yogurt or 3 eggs or 3 ounces of meat 3. Restart Protien shakes using Unsweete mariam [place] Milk 4. Consider Meal replacements such as Le na Cuisine or Healthy Choice (read label to reach 20 grams of protein) 5. Keep hard boiled eggs on hand 6. Aim for reducing fruit intake to 2 se rvings/day 1. Consider Investigating Deepka Stephanie 'What are you hungry for? 2. Restart Protien shakes using Unsweete mariam [place] Milk 3. When you feel well enough, boil a doz en hard boiled eggs Other (Enter personal goal) Lifestyle No Shaila Duffy RD Note: Formatting of this note might be d ifferent from the original. Nutrition Goals: 1. Consider Investigating Deepka Stephanie 'What are you hungry for? 2. Restart Protien shakes using Unsweete mariam [place] Milk 3. When you feel well enough, boil a doz en hard boiled eggs documented as of this encounter Visit Diagnoses Diagnosis Gross hematuria documented in this encounter Care Teams Machine Coil Assembler Relationship Specialty Start Date End Date Albert Zuleta MD PCP - General Family Medicine 01/17/17 10/26/21 [address] [place] [address] documented as of this encounter
--- OUTSIDE RECORDS SUMMARY | 2022-02-08 01:49 | XMS_ITS | Encounter Summary ---
:1960 Author Organization [facility] [place] [address] Care Team Providers Name Role Phone Albert Zuleta MD Primary Care Provider Encounter Details Date Type Department Care Team Description 10/26/2021 Telephone Urology at [facility] [place] [address] Social History Tobacco Use Types Packs/Day [...] this encounter Miscellaneous Notes Telephone Encounter - Tamela Lr LNA - 10/26/2021 2:25 PM EDT Spoke to patient regarding urine culture per Avani Huynh Cipro 500mg BID x7days and sent to preferred pharmacy documented in this encounter Plan of Treatment Upcoming Encounters Date Type Specialty Care Team Description 03/15/2022 Office Visit Neurology Ryann Barfield APRN [facility] NE[place] [address] 03/23/2022 Appointment Radiology Hailey Mcclendon MD [facility] [address] [place] [address] 03/23/2022 Laboratory Appointment Lab 03/23/2022 Office Visit Gastroenterology Hailey Mcclendon MD [facility] [address] [place] [address] 05/23/2022 Procedure visit Maxillofacial Surgery Corby Montes MD [facility] [address] [place] [address] documented as of this encounter Goals Goal Patient Goal Associated Recent Patient-Stated? Author Type Problems Progress meal Lifestyle Not on track Sandra Marcano, timing/food (08/26/2020 ilda Solitario 9:40 AM EST) LIFE INSURANCE AGENT Note: Formatting of this note might be d ifferent from the original. Try tracking using my fitnesspal or note book Use your date book to keep track of thin gs you need to do to improve your health. Meal timing: consider eating biggest troy l mid day, environmental attorney dinner, try not to eat after dinner-try [...] track (08/26/2020 9:40 AM EST) Iman Hannon, LIFE INSURANCE AGENT Note: Formatting of this note might be [...] or 1 c up Low fat plain [place] Yogurt or 3 eggs or 3 ounces of meat 3. Restart Protien shakes using Unsweete mariam [place] Milk 4. Consider Meal replacements such as Le na Cuisine or Healthy Choice (read label to reach 20 grams of protein) 5. Keep hard boiled eggs on hand 6. Aim for reducing fruit intake to 2 se rvings/day 1. Consider Investigating Deepka Stephanie 'What are you hungry for? 2. Restart Protien shakes using Unsweete mariam [place] Milk 3. When you feel well enough, boil a doz en hard boiled eggs Other (Enter personal goal) Lifestyle No Shaila Duffy RD Note: Formatting of this note might be d ifferent from the original. Nutrition Goals: 1. Consider Investigating Deepka Stephanie 'What are you hungry for? 2. Restart Protien shakes using Unsweete mariam [place] Milk 3. When you feel well enough, boil a doz en hard boiled eggs documented as of this encounter Visit Diagnoses Not on filedocumented in this encounter Care Teams Lead Shop Operator Relationship Specialty Start Date End Date Albert Zuleta MD PCP - General Family Medicine 01/17/17 10/26/21 [address] [place] [address] documented as of this encounter
--- OUTSIDE RECORDS SUMMARY | 2022-02-08 01:49 | XMS_ITS | Encounter Summary ---
:1960 Author Organization [facility] [place] [address] Care Team Providers Name Role Phone Albert Zuleta MD Primary Care Provider Encounter Details Date Type Department Care Team Description 09/12/2021 Telephone Urology at [facility] Ca Cavazos, [place] [address] Social History Tobacco Use Types Packs/Day [...] this encounter Miscellaneous Notes Telephone Encounter - Ca Cavazos [facility] - 09/12/2021 3:47 PM EST I called Sakshi about her urine culture results and let her know that Dr. Barlow was prescribing Cipro she stated that she was prescribed keflex by her PCP and was wondering if she should stop that and take the cipro and also wanted to know what bacteria her urine culture grew. I spoke with Dr. Barlow and he stated she could continue the Keflex. Because she was at another appointment when I spoke with her the first time I sent her this information through [facility] documented in this encounter Plan of Treatment Upcoming Encounters Date Type Specialty Care Team Description 03/15/2022 Office Visit Neurology Ryann Barfield, [facility] [place], [place] [address] 03/23/2022 Appointment Radiology Hailey Mcclendon MD [facility] [address] [place] [address] 03/23/2022 Laboratory Appointment Lab 03/23/2022 Office Visit Gastroenterology Hailey Mcclendon MD [facility] [place] [address] 05/23/2022 Procedure visit Maxillofacial Surgery Corby Montes MD [facility] [place] [address] documented as of this encounter Goals Goal Patient Goal Associated Recent Patient-Stated? Author Type Problems Progress meal Lifestyle Not on track No Jeet, timing/food (08/26/2020 ilda Solitario 9:40 AM EST) CEMENT BASED MATERIALS PUMP TENDER Note: Formatting of this note might be d ifferent from the original. Try tracking using my fitnesspal or note book Use your date book to keep track of thin gs you need to do to improve your health. Meal timing: consider eating biggest troy l mid day, excelsior machine operator dinner, try not to eat after [...] or 1 c up Low fat plain Icelandic Yogurt or 3 eggs or 3 ounces of meat 3. Restart Protien shakes using Unsweete mariam [place] Milk 4. Consider Meal replacements such as Le na Cuisine or Healthy Choice (read label to reach 20 grams of protein) 5. Keep hard boiled eggs on hand 6. Aim for reducing fruit intake to 2 se rvings/day 1. Consider Investigating Deepka Stephanie 'What are you hungry for? 2. Restart Protien shakes using Unsweete mariam [place] Milk 3. When you feel well enough, boil a doz en hard boiled eggs Other (Enter personal goal) Lifestyle No Shaila Duffy RD Note: Formatting of this note might be d ifferent from the original. Nutrition Goals: 1. Consider Investigating Deepka Stephanie 'What are you hungry for? 2. Restart Protien shakes using Unsweete mariam [place] Milk 3. When you feel well enough, boil a doz en hard boiled eggs documented as of this encounter Visit Diagnoses Not on filedocumented in this encounter Care Teams Sas Analyst Relationship Specialty Start Date End Date Albert Zuleta MD PCP - General Family Medicine 01/17/17 10/26/21 [address] [place] [address] documented as of this encounter
--- OUTSIDE RECORDS SUMMARY | 2022-02-08 01:49 | XMS_ITS | Encounter Summary ---
:1960 Author Organization [facility] [place] [address] Care Team Providers Name Role Phone Albert Zuleta MD Primary Care Provider Encounter Details Date Type Department Care Team Description 08/01/2021 Anesthesia Event Gastroenterology at [facility] [place] [address] [address] [phone] ANESTHESIOLOGY [place], [place] [address] Anesthesia Record Procedure Summary Procedure Name Responsible Anesthesia Start Anesthesia Stop Time Anesthesiologist Time COLONOSCOPY, Eduardo Kaminski MD 08/01/21 0734 08/01/21 0825 POLYPECTOMY, REMOVAL LESION BY SNARE (WRVU 4.67) (N/A ) Events Date Time Event Comment 08/01/2021 0734 AN Verify 0734 Start 0734 An Start Data 0740 0740 An Induction 0744 Quick Note EKG double count ing beats; actual HR is 68 0746 Anesthesia Ready 0820 an stop data 0825 Recovery or ICU Handoff Patient care was transferred to the destination unit staff after review of the patient's medica l history, current anesthetic/surgi beverley status and plan, according to the Provider Handoff Checklist. 0825 Stop Name Total IV Lidocaine 50 mg Propofol 60 mg Propofol INF 711.21 mg Dexmedetomidine 2 mcg ePHEDrine 5 mg lactated ringers infusion 0 mL Agents Name O2 Air N2O O2 Auxiliary Flowmeter 1 Blood No blood administrations on file. Lines, Drains, and Airways Type Details Placement Removal Incision 07/01/19; 0911; upper 07/01/19 0911 by katrina Mccarty; non-laparascopic Avani Zhou RN puncture; U/S guided liver biopsy Incision 08/12/19; 1446; neck 08/12/19 1446 by Naomi Ahn RN Incision 11/18/20; 0811; other (see 11/18/20 0811 by Jayesh coelho, comments) (entered urethral Kelsey Akhtar RN meatus); urethral meatus PIV 08/01/21; 0715; cephalic 08/01/21 0715 by Toni, 12/27/21 1027 by vein (lateral side of arm), BRYAN Marr Andrea right; demd-yav-maygnk catheter system; Anatomical Landmarks; 20 gauge; TimK; 12/27/21 (LDA Cleanup utility RA#[id number]); 1027 (LDA Cleanup utility RA#[id number]) documented in this encounter Social History Tobacco [...] encounter OR Notes Anesthesia Postprocedure Evaluation - Eduardo Kaminski MD - 08/01/2021 10:10 AM EST Department of Anesthesiology Post-procedure Note Patient: Blossom Samayoa Procedure Summary Date: 08/01/21 Room / Location: [facility] ENDO 2 / [facility] ENDOSCOPY Anesthesia Start: 733 Anesthesia Stop: 824 Procedure: COLONOSCOPY, POLYPECTOMY, REMOVAL LESION BY SNARE (WRVU 4.67) (N/A ) Diagnosis: (Colonoscopy ) (Sedation: Anesthesia ) (TImeframe: within 3 Weeks -- B.) (Indication: Bleeding (BRBPR)) (This procedure should be performed with: Any Endoscopist) Surgeons: Soham Hankins MD Responsible Provider: Eduardo Kaminski MD Anesthesia Type: MAC ASA Status: 3 All Anesthesia Providers: Anesthesiologist: Eduardo Kaminski MD PROGRAMMER ENGINEERING AND SCIENTIFIC: Yue Hankins CRNA Vitals Value Taken Time BP 103/59 08/01/21 0900 Temp Pulse Resp 18 08/01/21 0900 SpO2 97 % 08/01/21 0901 Pain Level 0 08/01/21 0900 Vitals shown include unvalidated device data. [facility] Level of Consciousness: Awake and Alert Pain Management: Satisfactory Analgesia PONV: None Cardiovascular Status: Hemodynamically Stable Respiratory Status: Stable Respiratory Status Postoperative Fluid Status: Intravascular EUvolemia Possible Anesthetic Complications: NONE apparent at time of evaluation Final Primary Anesthesia Type: MAC (The anesthetic type performed was the same as planned.) Comments: Anesthesia Preprocedure Evaluation - Eduardo Kaminski MD - 08/01/2021 7:23 AM EST Pre-Anesthesia Evaluation for: Blossom Samayoa a 60 y.o. female. Procedure(s): COLONOSCOPY, DIAGNOSTIC Patient Active Problem List Diagnosis ??? 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 MELD-Na 7. US in no ascites ??? MOSES (obstructive sleep apnea) On c pap ??? Insomnia ??? Bile acid malabsorption syndrome ??? Hyperparathyroidism, primary ??? Abscess ??? Shock ??? Renal calculus, left ??? HTN (hypertension) ??? Gastroesophageal reflux ??? PTSD (post-traumatic stress disorder) ??? COPD (chronic obstructive pulmonary disease) ??? Asthma ??? Anxiety ??? Depression ??? Former smoker ??? Chronic prescription opiate use Per PDMP Aug 2018: hydrocodone 5/325 bid prescribed by her PCP. ??? Ventral hernia ??? Nephrolithiasis ??? Cardiomyopathy ??? Type 2 diabetes mellitus, [...] failure 'don't know if it's failure ??? 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 Mental health problem ??? Obstructive sleep apnea diag 2007 ??? Osteoma of ear canal ??? Vertigo balance prob,last fall early Jun. Past Surgical History: Procedure Laterality Date ??? IR ALL DRAINAGE PROCEDURES 02/20/2019 IR All Drainage Procedures 02/20/2019 Corby Flor MD [facility] INTERVENTIONL RAD ??? IR BIOPSY LIVER PERCUTANEOUS 07/01/2019 IR Biopsy Liver Percutaneous 07/01/2019 Corby Flor MD [facility] INTERVENTIONL RAD ??? IR DRAIN CHECK/CHANGE/REMOVE 03/07/2019 IR Drain Check/Change/Remove 03/07/2019 Albert Mendez MD [facility] INTERVENTIONL RAD ??? PRG ECHOENCEPHALOGRAPH REAL TIME Left 11/07/2018 ULTRASOUND USE (WRVU 0.63) performed by Crow Galvin Jr., MD at [facility] OR ??? PRG EMG, LARYNX N/A 08/12/2019 FACIAL NERVE MONITORING, SETUP LARYNGEAL (WRVU 1.57) performed by Emily Mcmahon MD at [facility] OR ??? PRG FLUOROSCOPY EXAM UP TO 1 HR PHY OR OTH HLTH CARE PROV N/A 09/26/2018 FLUOROSCOPY (WRVU 0.17) performed by Crow Galvin Jr., MD at [facility] OR ??? PRG FLUOROSCOPY EXAM UP TO 1 HR PHY OR OTH TH CARE PROV N/A 11/07/2018 FLUOROSCOPY (WRVU 0.17) performed by Crow Galvin Jr., MD at [facility] OR ??? PRG FLUOROSCOPY EXAM UP TO 1 HR PHY OR OTH [facility] CARE PROV N/A 11/18/2020 FLUOROSCOPY (WRVU 0.17) performed by Crow Galvin Jr., MD at [facility] OR ??? PRG US GUIDE INTRAOP Right 09/26/2018 ULTRASONIC GUIDANCE, INTRAOP (WRVU 1.2) performed by Crow Galvin Jr., MD at [facility] OR ??? PRO COLONOSCOPY, REMV LESN, SNARE N/A 03/26/2019 COLONOSCOPY, POLYPECTOMY, REMOVAL LESION BY SNARE (WRVU 4.67) performed by Abhinav Stacy MD at [facility] ENDOSCOPY ? ? PRO CYSTO W URETEROSCOPY &/OR PYELOSCOPY, DX Right 09/26/2018 CYSTOURETEROSCOPY, DIAGNOSTIC (WRVU 5.75) performed by Crow Galvin Jr., MD at [facility] OR ? ? PRO CYSTO W URETEROSCOPY &/OR PYELOSCOPY, DX Left 11/07/2018 CYSTOURETEROSCOPY, DIAGNOSTIC (WRVU 5.75) performed by Crow Galvin Jr., MD at [facility] OR ??? PRO CYSTOSCOPY, INSERT URETERAL STENT Right 07/10/2018 CYSTO, STENT PLACEMENT (WRVU 2.82) performed by Viky Sears MD at [facility] OR ??? PRO CYSTOSCOPY, REMV CALCULUS, COMPLIC Right 09/26/2018 CYSTO, REMOVAL OF STENT, FOREIGN BODY, CALCULUS, COMPLICATED (WRVU 5.2) performed by Crow Galvin MD at [facility] OR ??? PRO CYSTOURETHROSCOPY, FULGUR .5-2CM LESN N/A 11/18/2020 CYSTO, FULGURATION OF BLADDER LESION, W OR W/O BX, 0.5 TO 2.0CM (WRVU 4.62) performed by Crow Galvin Jr., MD at [facility] OR ??? PRO CYSTOURETHROSCOPY, URETER CATHETER Right 07/10/2018 CYSTO, RETROGRADE, URETEROPYELOGRAPHY (WRVU 2.37) performed by Viky Sears MD at [facility] OR ??? PRO CYSTOURETHROSCOPY, URETER CATHETER Right 09/26/2018 CYSTO, RETROGRADE, URETEROPYELOGRAPHY, W/PCNL (WRVU 2.37) performed by Crow Galvin Jr., MD at [facility] OR ??? PRO CYSTOURETHROSCOPY, URETER CATHETER Bilateral 11/18/2020 CYSTO, RETROGRADE, URETEROPYELOGRAPHY (WRVU 2.37) performed by Crow Galvin Jr., MD at [facility] OR ??? PRO EXPLORATORY OF ABDOMEN N/A 01/05/2019 @EXPLORATORY LAPAROTOMY, WITH/WITHOUT BIOPSY(S) (WRVU 12.54) performed by Ace Henry MD at [facility] OR ??? PRO EXPLORATORY OF ABDOMEN N/A 01/07/2019 @EXPLORATORY LAPAROTOMY, WITH/WITHOUT BIOPSY(S) (WRVU 12.54) performed by Ace Henry MD at [facility] OR ??? PRO EXPLORE PARATHYROID GLANDS N/A 08/12/2019 PARATHYROIDECTOMY OR EXPLORATION OF PARATHYROID(S) (WRVU 15.6) performed by Emily Mcmahon MD at [facility] OR ??? PRO FREEING BOWEL ADHESION, ENTEROLYSIS N/A 01/05/2019 @LYSIS OF ADHESIONS, ABD. (WRVU 18.46) performed by Ace Henry MD at [facility] OR ? ? PRO PERCUTANEOUS NEPHROSTOLITHOTOMY/PYELOSTOLITHOTOMY > 2 CM Right 09/26/2018 NEPHROLITHOTOMY, (PCNL) PERCUTANEOUS, OVER 2CM (WRVU 23.5) performed by Crow Galvin Jr., MD at [facility] OR ? ? PRO PERCUTANEOUS NEPHROSTOLITHOTOMY/PYELOSTOLITHOTOMY > 2 CM Left 11/07/2018 NEPHROLITHOTOMY, (PCNL) PERCUTANEOUS, OVER 2CM (WRVU 23.5) performed by Crow Galvin Jr., MD at [facility] OR ? ? PRO PLMT NEPHROSTOMY CATH PRQ NEW ACCESS RS&I Right 09/26/2018 NEPHROSTOMY CATHETER, PERC, INC DX NEPHROSTOGRAM/URETEROGRAM, IMG GUIDANCE (WRVU 4.25) performed byCrow Galvin Jr., MD at [facility] MAIN OR ? ? PRO MT NEPHROSTOMY CATH PRQ NEW ACCESS RS&I Left 11/07/2018 NEPHROSTOMY CATHETER, PERC, INC DX NEPHROSTOGRAM/URETEROGRAM, IMG GUIDANCE (WRVU 4.25) performed byCrow Galvin Jr., MD at [facility] MAIN OR ??? PRO RENAL ENDOSCOPY, TREATMENT Left 11/07/2018 RENAL ENDOSCOPY W\FULG, W\WO\BX, VIA NEPHROSTOMY (WRVU 6.61) performed by Crow Galvin Jr., MD [facility] MAIN OR ??? PRO RESECT SMALL INTEST, SINGL RESEC/ANAS N/A 01/07/2019 @BOWEL RESECTION, SMALL INTESTINE SINGLE ANASTOMOSIS (WRVU 20.82) performed by Ace Henry MD at [facility] MAIN OR Social History Tobacco Use ??? Smoking status: Former Smoker Packs/day: 1.00 Years: 30.00 Pack years: 30.00 Types: Cigarettes Quit date: 07/23/2016 Years since quittin.0 ??? Smokeless tobacco: Never Used Substance Use [...] Physical Exam: Preprocedure Vitals Current as of 08/01/21 0723 BP: 199/92 Pulse: 66 Resp: 20 SpO2: 98 Temp: 36.2 ??C (97.2 ??F) Height: 167.6 cm (5' 6) (08/01/21) Weight: 147.4 kg (325 lb) (08/01/21) BMI: 52.45 IBW: 59.3 kg (130 lb 10.4 oz) Last edited 08/01/21 0707 by FLORY Airway Assessment: Mallampati: I TM distance: >3 FB Neck ROM: full Cardiovascular Assessment: Rhythm: regular Rate: normal Pulmonary Assessment: unlabored breathing Dental Assessment: - normal exam Misc Assessment: Patient is wearing No contact(s). IV access: Peripheral line Last Filed Perioperative Cognitive Screening None Anesthesia Plan: ASA 3 MAC, with a(n) intravenous induction Region - Other Informed Consent: Anesthetic plan and risks discussed with patient. Attending NOTE Brief HPI: 60 y.o. with GE bleeding to endo suite for colonoscopy Diagnosis ??? Cardiomyopathy ??? Type 2 diabetes mellitus, without long-term current use of insulin ??? History of herpes simplex infection ??? LBBB (left bundle branch block) ??? Class 3 severe obesity with serious comorbidity and body mass index (BMI) of 50.0 to 59.9 in adult ??? Sarcoidosis ??? Nephrolithiasis ??? Ventral hernia ??? HTN (hypertension) ??? Gastroesophageal reflux ??? PTSD (post-traumatic stress disorder) ??? COPD (chronic obstructive pulmonary disease) ??? Asthma ??? Anxiety ??? Depression ??? Former smoker ??? Chronic prescription opiate use ??? Hyperparathyroidism, primary ??? MOSES (obstructive sleep apnea) ??? Insomnia ??? Bile acid malabsorption syndrome ??? Cirrhosis Past Medical History: Diagnosis Date ??? Asthma [...] failure 'don't know if it's failure ??? [facility] current use of opiate analgesic PCP ??? Mental health problem ??? Obstructive sleep apnea diag 2007 ??? Osteoma of ear canal ??? Vertigo balance prob,last fall early Jun. Cardiac Symptoms: denies LABS: Lab Results Component Value Date HGB 11.6 (External Lab) 03/12/2020 PLATELET 193 (External Lab) 03/12/2020 INR 1.1 09/25/2019 NA 135 (ExtL) 03/12/2020 K 4.5 (External Lab) 03/12/2020 CREATININE 0.85 (External Lab) 03/12/2020 Type and Screen: Lab Results Component Value Date ABORH O Pos 01/04/2019 Past anesthetic problems: denies NPO status: Reviewed and appropriate Anesthetic Plan: Mac; ga backup Monitoring: Standard ASA monitors Anesthesia Screening documented in this encounter Plan of Treatment Upcoming Encounters Date Type Specialty Care Team Description 03/15/2022 Office Visit Neurology Ryann Barfield, [facility] NEUROLOGY [place], [place] [address] 03/23/2022 Appointment Radiology Hailey Mcclendon MD [facility] [address] [place] [address] 03/23/2022 Laboratory Appointment Lab 03/23/2022 Office Visit Gastroenterology Hailey Mcclendon MD [facility] [address] [place] [address] 05/23/2022 Procedure visit Maxillofacial Surgery Corby Montes MD [facility] [address] [place] [address] documented as of this encounter Goals [...] consider eating biggest troy l mid day, wood sawyer dinner, try not to eat after dinner-try [...] or 1 c up Low fat plain Urdu Yogurt or 3 eggs or 3 ounces of meat 3. Restart Protien shakes using Unsweete mariam [place] Milk 4. Consider Meal replacements such as Le na Cuisine or Healthy Choice (read label to reach 20 grams of protein) 5. Keep hard boiled eggs on hand 6. Aim for reducing fruit intake to 2 se rvings/day 1. Consider Investigating Deepka Stephanie 'What are you hungry for? 2. Restart Protien shakes using Unsweete mariam [place] Milk 3. When you feel well enough, boil a doz en hard boiled eggs Other (Enter personal goal) Lifestyle No Shaila Duffy I, RD Note: Formatting of this note might be d ifferent from the original. Nutrition Goals: 1. Consider Investigating Deepka Stephanie 'What are you hungry for? 2. Restart Protien shakes using Unsweete mariam [place] Milk 3. When you feel well enough, boil a doz en hard boiled eggs documented as of this encounter Visit Diagnoses Not on filedocumented in this encounter Administered Medications Inactive Administered Medications - up to 3 most recent administrations Medication Order MAR Action Action Date Dose Rate Site dexmedetomidine (Precedex) (4 Given 08/01/2021 7:40 AM EST 2 mcg mcg/mL) bolus injection (Anesthsia) Intravenous, PRN, Starting on Sun08/01/21 at 0740, Until Sun08/01/21 at 0825, Anesthesia Intra-op, Routine ePHEDrine sulfate (5 mg/mL) multi-dose Given 08/01/2021 7:40 AM EST 5 mg injection Intravenous, PRN, Starting on Sun08/01/21 at 0740, Until Sun08/01/21 at 0825, Anesthesia Intra-op, Routine lidocaine (pf) (Xylocaine) (20 mg/mL) 2% Given 08/01/2021 7:40 A M EST 50 mg injection syringe Intravenous, PRN, Starting on Sun08/01/21 at 0740, Until Sun08/01/21 at 0825, Anesthesia Intra-op, Routine propofoL (Diprivan) (10 Rate/Dose 08/01/2021 7:58 125 mcg/kg/min 110 .55 mg/mL) infusion Change AM EST mL/hr Intravenous, CONTINUOUS PRN, Starting on Sun08/01/21 at 0740, Until Sun08/01/21 at 0825, Anesthesia Intra-op, Routine New Bag 08/01/2021 7:40 AM EST 150 mcg/kg/min 132.66 mL/hr propofoL (Diprivan) 10 mg/mL bolus injection Given 7:40 AM EST 60 mg (Anesthesia) Intravenous, PRN, Starting on Sun08/01/21 at 0740, Until Sun08/01/21 at 0825, Anesthesia Intra-op documented in this encounter Care Teams Shade Classifier Relationship Specialty Start Date End Date Albert Zuleta MD PCP - General Family Medicine 01/17/17 10/26/21 [address] [place] [address] documented as of this encounter
--- OUTSIDE RECORDS SUMMARY | 2022-02-08 01:49 | XMS_ITS | Encounter Summary ---
:1960 Author Organization [facility] [place] [address] Care Team Providers Name Role Phone Albert Zuleta MD Primary Care Provider Encounter Details Date Type Department Care Team Description 05/05/2021 Orders Only Cardiology at [facility] Joni Drew LBBB (left bundle branch blo ck) (Primary Dx); [facility] MD Hermilo Other cardiomyopathy [address] [facility] [id number] Cardiology [phone] [place], [place] [address] Social History Tobacco Use Types [...] 03/15/2022 Office Visit Neurology Ryann Barfield, [facility] [address] [place], [place] [address] 03/23/2022 Appointment Radiology Hailey Mcclendon MD [facility] [address] [place] [address] 03/23/2022 Laboratory Appointment Lab 03/23/2022 Office Visit Gastroenterology Hailey Mcclendon MD [facility] [address] [place] [place] [address] 05/23/2022 Procedure visit Maxillofacial Surgery Corby Montes MD [facility] [address] [place] [address] Scheduled Orders Name Type Priority Associated Diagnoses Order S chedule EKG 12 Lead ECG Routine LBBB (left bundl e branch block) As Needed for 6 Occurrences Other cardiomyopathy startin g 05/05/2021 until 05/05/2022 documented as of this encounter Goals Goal Patient Goal Associated Recent Patient-Stated? Author Type Problems Progress meal Lifestyle Not on track Sandra Marcano, timing/food (08/26/2020 ilda Solitario 9:40 AM EST) HAND RUG BRAIDER Note: Formatting of this note might be d ifferent from the original. Try tracking using my fitnesspal or note book Use your date book to keep track of thin gs you need to do to improve your health. Meal timing: consider eating biggest troy l mid day, overlay operator dinner, try not to eat after [...] track (08/26/2020 9:40 AM EST) Iman Hannon, HAND RUG BRAIDER Note: Formatting of this note might be [...] or 1 c up Low fat plain [place] Yogurt or 3 eggs or 3 ounces of meat 3. Restart Protien shakes using Unsweete mariam [place] Milk 4. Consider Meal replacements such as Le na Cuisine or Healthy Choice (read label to reach 20 grams of protein) 5. Keep hard boiled eggs on hand 6. Aim for reducing fruit intake to 2 se rvings/day 1. Consider Investigating Deepka Stephanie 'What are you hungry for? 2. Restart Protien shakes using Unsweete mariam [place] Milk 3. When you feel well enough, boil a doz en hard boiled eggs Other (Enter personal goal) Lifestyle No Shaila Duffy RD Note: Formatting of this note might be d ifferent from the original. Nutrition Goals: 1. Consider Investigating Deepka Stephanie 'What are you hungry for? 2. Restart Protien shakes using Unsweete mariam [place] Milk 3. When you feel well enough, boil a doz en hard boiled eggs documented as of this encounter Visit Diagnoses Diagnosis LBBB (left bundle branch block) - Primar y Other left bundle branch block Other cardiomyopathy documented in this encounter Care Teams Florist Supplies Salesperson Relationship Specialty Start Date End Date Albert Zuleta MD PCP - General Family Medicine 01/17/17 10/26/21 [address] [facility] [id number] documented as of this encounter
--- OUTSIDE RECORDS SUMMARY | 2022-02-08 01:49 | XMS_ITS | Encounter Summary ---
:1960 [place] [address] Care Team Providers Name Role Phone Trev Burr MD Primary Care Provider Encounter Details Date Type Department Care Team Description 10/27/2021 Hospital Encounter Same Day Program at Meghana Galvin Renal calculus, left Hailey Gomez Jr., MD [facility] [address] [place] [id number] [phone] Social History Tobacco Use Types Packs/Day Years [...] to urinate, please call our office at [phone] before 5PM or [phone] after hours. You will likely have burning [...] > 101.3F The number for questions is [phone] before 5 PM weekdays and [phone] after 5 PM and weekends. Follow-up: You should receive a phone call to see Dr. Galvin in ~8 weeks with an ultrasound prior. If you do not hear from us over the next month, please call [phone] to confirm the time and date. documented [...] Operative Note Patient Name: Blossom Samayoa : [id number] MR#: [id number] Case Date: 10/27/2021 Surgeon: Surgeon(s) and Role: [...] Schneider MD - 10/27/2021 4:48 PM EDT [facility] Operative Note Patient Name: Blossom Samayoa : [id number] MR#: [id number] Case Date: 10/27/2021 Surgeon: Surgeon(s) and Role: [...] sterile fashion. After an adequate time-out, a 22-Tongan cystoscope was gently passedthrough the patient's urethra and into the patient's bladder. Her bladder was then emptied. A visualinspection of the bladder revealed a grossly normal bladder with no tumors, foreign bodies, stones or erythema. 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 Both UOs in orthotopic position. A 5-Tongan Paauilo was then easily passed into the left ureteral orifice. A retrograde pyelogram wasperformed which showed no filling defects or hydronephrosis. It ultimately drained its contrast by the end of the case (<10 minutes). A 5-Tongan Pollack was then easily passed into the [...] 03/15/2022 Office Visit Neurology Ryann Barfield APRN [facility] [address] [place], [place] [address] 03/23/2022 Appointment Radiology Hailey Mcclendon MD [facility] [address] [place] [address] 03/23/2022 Laboratory Appointment Lab 03/23/2022 Office Visit Gastroenterology Hailey Mcclendon MD [facility] [address] [place] [address] 05/23/2022 Procedure visit Maxillofacial Surgery Corby Montes MD [facility] [place] [address] Scheduled Orders Name Type Priority Associated Diagnoses Order S chedule US Retroperitoneal Complete Imaging Routine Renal calculu s, left Expected: 12/26/2021 (Approximate), Expires: 2021 documented as of this encounter Goals Goal Patient Goal Associated Recent Patient-Stated? 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 Try tracking using my fitnesspal or note book Use your date book to keep track of thin gs you need to do to improve your health. Meal timing: consider eating biggest troy l mid day, software applications engineer dinner, try not to eat after [...] or 1 c up Low fat plain [place] Yogurt or 3 eggs or 3 ounces of meat 3. Restart Protien shakes using Unsweete mariam [place] Milk 4. Consider Meal replacements such as Le na Cuisine or Healthy Choice (read label to reach 20 grams of protein) 5. Keep hard boiled eggs on hand 6. Aim for reducing fruit intake to 2 se rvings/day 1. Consider Investigating Deepka Stephanie 'What are you hungry for? 2. Restart Protien shakes using Unsweete mariam [place] Milk 3. When you feel well enough, boil a doz en hard boiled eggs Other (Enter personal goal) Lifestyle No Shaila Duffy RD Note: Formatting of this note might be d ifferent from the original. Nutrition Goals: 1. Consider Investigating Salena Brown 'What are you hungry for? 2. Restart Protien shakes using Unsweete mariam [place] Milk 3. When you feel well enough, [...] Signature POC Glucose 141 65 - 199 [facility] mg/dL [facility] Comment: Supplemental ranges: <140 mg/dL before meals <180 mg/dL all other times of the day Specimen Anatomical Collection Method Collection Time Receive d Time (Source) Location / / Volume Laterality Blood 10/27/2021 3:32 PM 3:32 EDT PM EDT Meghana Galvin Jr., MD POINT OF CARE TEST ORDERABLE S Performing Organization Address City/State/[place] [address] documented in this encounter Visit Diagnoses Diagnosis Renal calculus, left Calculus of kidney documented in this encounter Administered Medications Inactive Administered Medications - up to 3 most recent administrations Medication Order MAR Action Action Date Dose Rate Site acetaminophen (Tylenol) tablet 975 Given 10/27/2021 5:39 PM EDT 975 mg mg 975 mg, Oral, EVERY 4 HOURS PRN, Starting on Arin 10/27/21 at 1731, Until Arin 10/27/21 at 2119, Pain, Maximum dose of acetaminophen is 4000 mg from all sources in 24 hours. When ordered for pain, acetaminophen should be given even when other ordered pain medications are indicated. , Routine documented in this encounter Active and Recently Administered Medications Times are shown in EDT. Scheduled Medication Order 10/25/2021 10/26/2021 10/27/2021 gentamicin (Garamycin) 466.4 mg in sodium chloride 0.9% 111.66 m L infusion 1615 (Due) 466.4 mg (rounded from 466.5 mg = 5 mg/k g/dose ? 93.3 kg Adjusted weight), Intravenous, MANAGER TECHNICAL SALES TO O.R., 1 dose, On Arin 10/27/21 [...] Routine documented in this encounter Care Teams Dispatch Associate Relationship Specialty Start Date End Date Trev Burr MD PCP - General Emergency Medicine 10/27/21 [address] [place] [address] documented as of this encounter
--- OUTSIDE RECORDS SUMMARY | 2022-02-08 01:49 | XMS_ITS | Encounter Summary ---
:1960 Author Organization [facility] [place] [address] Care Team Providers Name Role Phone Trev Burr MD Primary Care Provider Encounter Details Date Type Department Care Team Description 10/26/2021 Telephone Urology at [facility] Tamela Lr, [facility], [place] [address] Social History Tobacco Use Types Packs/Day [...] Neurology Ryann Barfield, SHMUEL [facility] [address] [place], [place] [address] 03/23/2022 Appointment Radiology Hailey Mcclendon MD [facility] [address] [place] [address] 03/23/2022 Laboratory Appointment Lab 03/23/2022 Office Visit Gastroenterology Hailey Mcclendon MD [facility] [address] [place] [address] 05/23/2022 Procedure visit Maxillofacial Surgery Corby Montes MD [facility] [address] [place] [address] documented as of this encounter [...] consider eating biggest troy l mid day, management information systems director dinner, try not to eat after dinner-try [...] track (08/26/2020 9:40 AM EST) Iman Hannon, SOIL SAMPLER Note: Formatting of this note might be d ifferent from the original. Try just getting up at least once an luda r Recommend resistance training 3 times a week -can use your weights- 08/26/20- not on track with this, will work on it. sleep Lifestyle On track (08/26/2020 9:43 AM EST) Iman Hannon, SOIL SAMPLER Note: Formatting of this note might be [...] or 1 c up Low fat plain [place]ag[place] Yogurt or 3 eggs or 3 ounces of meat 3. Restart Protien shakes using Unsweete mariam [place] Milk 4. Consider Meal replacements such as Le na Cuisine or Healthy Choice (read label to reach 20 grams of protein) 5. Keep hard boiled eggs on hand 6. Aim for reducing fruit intake to 2 se rvings/day 1. Consider Investigating Deepka Stephanie 'What are you hungry for? 2. Restart Protien shakes using Unsweete mariam [place] Milk 3. When you feel well enough, boil a doz en hard boiled eggs Other (Enter personal goal) Lifestyle No Shaila Duffy RD Note: Formatting of this note might be d ifferent from the original. Nutrition Goals: 1. Consider Investigating Deepka Stephanie 'What are you hungry for? 2. Restart Protien shakes using Unsweete mariam [place] Milk 3. When you feel well enough, boil a doz en hard boiled eggs documented as of this encounter Visit Diagnoses Not on filedocumented in this encounter Care Teams Telephonic Case Manager Relationship Specialty Start Date End Date Trev Burr MD PCP - General Emergency Medicine 10/27/21 [address] [place] [address] documented as of this encounter
--- OUTSIDE RECORDS SUMMARY | 2022-02-08 01:49 | XMS_ITS | Encounter Summary ---
:1960 Author Organization [facility] [place] [address] Care Team Providers Name Role Phone Albert Zuleta MD Primary Care Provider Encounter Details Date Type Department Care Team Description 09/12/2021 Hospital Encounter Ultrasound at [facility] Hailey Mcclendon, Cirrhosis of liver [facility] without ascites, [facility] unspecified hepatic [place], [place] [address] cirrhosis type [id number] [place], [place] [phone] [id number] Social History Tobacco Use Types Packs/Day Years [...] Lower urinary tract symptoms (LUTS) rifAXIMin (Xifaxan) Take 1 tablet by mouth 180 tablet 3 08/24 550 mg Tablet 2 times daily. cephALEXin (Keflex) Take 1 capsule by 21 capsule 0 2 500 mg Capsule mouth 3 times daily. HYDROcodone-acetaminop hydrocodone-acetaminophen 0 hen 5-325 mg Tablet 5/325mg- 1-2 tab daily PRN umeclidinium (Incruse Incruse Ellipta 0 Ellipta) 62.5 1 puff daily mcg/actuation Disk with Device LEVALBUTEROL TARTRATE levalbuterol tartrate 0 INHL 1 puff daily PRN clotrimazole-betametha Apply topically. 0 021 sone (LOTRISONE) 1-0.05 % Cream NovoLOG Flexpen U-100 INJECT 15 30 UNITS 0 2020 Insulin Insulin Pen SUBCUTANEOUSLY THREE TIMES A DAY WITH MEALS tiotropium (Spiriva) Inhale 1 capsule into 0 01/20 18 mcg Capsule, the lungs. w/Inhalation Device metFORMIN (Glucophage) Take 1,000 mg by mouth 0 500 mg Tablet daily. insulin Inject 35 Units 0 glargine,hum.rec.anlog subcutaneously 2 times (BASAGLAR KWIKPEN daily. U-100 INSULIN SUBQ) multivitamin Take 1 tablet by mouth 0 (THERAGRAN) Tablet daily. carvediloL (Coreg) 25 Take 12.5 mg by mouth 0 mg Tablet 2 times daily (with meals). Take one half tablet by mouth two times daily. Trulicity 1.5 mg/0.5 0 11/23/2019 mL Pen Injector amitriptyline (Elavil) Take 50 mg by mouth 0 50 mg Tablet nightly. lactobacillus CHEW ONE TABLET BY 0 09/07/2019 acidophilus & bulgar 1 MOUTH EVERY DAY million cell Tablet, Chewable ibuprofen Take 1 tablet by mouth 30 tablet 12 08/13/2019 (Advil;Motrin) 600 mg every 6 hours as Tablet needed for Pain. acetaminophen Take 1,000 mg by mouth 0 (TYLENOL) 500 mg every 6 hours as Tablet needed for Pain. cholestyramine Take by mouth 2 times 0 (QUESTRAN) 4 gram daily (with meals). Powder acyclovir (ZOVIRAX) 5 Apply 1 each topically 0 % Ointment every 3 hours. valACYclovir (VALTREX) TAKE ONE TABLET BY 1 06/05 1 gram Tablet MOUTH EVERY DAY NEEDED nitroGLYcerin Place 0.4 mg under the 0 (NITROSTAT) 0.4 mg tongue every 5 minutes Tablet, Sublingual as needed for Chest pain. diclofenac (VOLTAREN) Apply topically 4 0 1 % Gel times daily as needed. atorvastatin [...] ONE TABLET BY 3 03/09/2018 (PRINIVIL;ZESTRIL) 5 MOUTH DAILY mg Tablet glipizide/metformin glipizide-metformin 0 10/26/2021 HCl 500mg, 2 tabs BID (GLIPIZIDE-METFORMIN ORAL) documented as of this encounter Plan of Treatment Upcoming Encounters Date Type Specialty Care Team Description 03/15/2022 Office Visit Neurology Ryann Barfield APRN [facility] [place], [place] [address] 03/23/2022 Appointment Radiology Hailey Mcclendon MD [facility] [address] [place] [address] 03/23/2022 Laboratory Appointment Lab 03/23/2022 Office Visit Gastroenterology Hailey Mcclendon MD [facility] [address] [place] [address] 05/23/2022 Procedure visit Maxillofacial Surgery Corby Montes MD [facility] [address] [place] [address] documented as of this encounter Goals Goal Patient Goal Associated Recent Patient-Stated? Author Type Problems Progress meal Lifestyle Not on track Sandra Mracano timing/food (08/26/2020 ilda Solitario 9:40 AM EST) SHMUEL Note: Formatting of this note might be d ifferent from the original. Try tracking using my fitnesspal or note book Use your date book to keep track of thin gs you need to do to improve your health. Meal timing: consider eating biggest troy l mid day, grey iron molder dinner, try not to eat after dinner-try [...] (08/26/2020 9:40 AM EST) No Iman Marcano, BOROUGH COORDINATOR Note: Formatting of this note might be [...] or 1 c up Low fat plain [place] Yogurt or 3 eggs or 3 ounces of meat 3. Restart Protien shakes using Unsweete mariam [place] Milk 4. Consider Meal replacements such as Le na Cuisine or Healthy Choice (read label to reach 20 grams of protein) 5. Keep hard boiled eggs on hand 6. Aim for reducing fruit intake to 2 se rvings/day 1. Consider Investigating Deepka Stephanie 'What are you hungry for? 2. Restart Protien shakes using Unsweete mariam [place] Milk 3. When you feel well enough, boil a doz en hard boiled eggs Other (Enter personal goal) Lifestyle No Shaila Duffy I, RD Note: Formatting of this note might be d ifferent from the original. Nutrition Goals: 1. Consider Investigating Deepka Stephanie 'What are you hungry for? 2. Restart Protien shakes using Unsweete mariam [place] Milk 3. When you feel well enough, boil a doz en hard boiled eggs documented as of this encounter Procedures Procedure Name Priority Date/Time Associated Diagnosis Comme nts US ABDOMEN LIMITED Routine 09/12/2021 12:59 Cirrhosis of liver Results for this HEPATOLOGY PROTOCOL PM EST without ascites, proc edure are in unspecified hepatic the resu lts cirrhosis type section. documented in this encounter Results US Abdomen Limited Hepatology Protocol (09/12/2021 12:59 [...] dilatation. Electronically signed by: Sumanth treviño MD, [facility] ([phone]), at 1:19 PM Thank you for letting us participate in the care of this patient. If you are a health care provid er and have any questions regarding this report, please contact the number above. For patients who have ques tions, please contact the [facility] that requested your imaging first. ? Sumanth Pitts, Staff Physician Electronically Signed Final Report ?? 01:26 pm Narrative 09/12/2021 1:26 PM EST Abdominal ? (Signed Final 09/12/2021 01:26 pm) PATIENT INFO: ID #: ? [id number] ?: ??[birth year] (60 yrs)(F) Name: ? BLOSSOM L ? Visit Date: 09/12/2021 12:42 pm ? TARA PERFORMED BY: Performed By: ? Dani Villalobos RDMS Attending: ?Gisselle RUIZ, Maurice Barrera Resident: ? Brandi Cooper MD Referred By: ?HAILEY MCCLENDON Location: ? [place] SERVICE(S) PROVIDED: [facility] - Hepatology Protocol - Abdomin al ? 30744 Limited Survey Single Organ or Quadrant - [id number] INDICATIONS: cirrhosis, HCC screening COMPARISON: US: Hepatology [...] 01:2 6 pm) PATIENT INFO: ID #: [id number] : [birth year] (60 y rs)(F) Name: BLOSSOM Ray Visit Date: 09/12/2021 12:42 pm TARA PERFORMED BY: Performed By: Agata Villalobos RDMS Attending: Sumanth Pitts MD Resident: Brandi Cooper MD Referred By: HAILEY MCCLENDON Location: [place] SERVICE(S) PROVIDED: [facility] - Hepatology Protocol - Abdomin al 35141 Limited Survey Single Organ or Quadrant - [id number] INDICATIONS: cirrhosis, HCC screening COMPARISON: US: Hepatology [...] Electronically signed by: Sumanth treviño MD, Radiology [place] ([phone]), at 1:19 PM Thank you for letting us participate in the care of this patient. If you are a health care [facility] er and have any questions regarding this report, please contact the number above. For patients who have ques tions, please contact the [facility] that requested your imaging first. Sumanth Pitts, Staff Physician Electronically Signed Final Report 09/12 01:26 pm Hailey Mcclendon MD IMG US GEN ORDERABLES documented in this encounter Visit Diagnoses Diagnosis Cirrhosis of liver without ascites, unsp ecified hepatic cirrhosis type documented in this encounter Care Teams Machine Loader Relationship Specialty Start Date End Date Albert Zuleta MD PCP - General Family Medicine 01/17/17 10/26/21 [address] [place] [address] documented as of this encounter
--- OUTSIDE RECORDS SUMMARY | 2022-02-08 01:50 | XMS_ITS | Encounter Summary ---
:1960 Author Organization [facility] [place] [address] Care Team Providers Name Role Phone Albert Zuleta MD Primary Care Provider Reason for Referral Diagnostic Test (Routine) - Closed Specialty Diagnoses / Procedures Referred By Contact Refer red To Contact Cardiology Diagnoses Palpitations Joni Drew MD [facility] Non-Inv Card Lab Procedures Ziopatch 48 Hrs-15 Days [facility] [place] [address] [place] [address] Referral ID Status Reason Start Date Expiration Date Visits V isits Requested Authorized [id number] Closed Specialty 02/23/2021 07/22/2021 1 1 Service Requested Encounter Details Date Type Department Care Team Description 02/23/2021 Orders Only Cardiology at [facility] Joni Drew Palpitations (Primary [facility] MD Hermilo [place]x) [place] [address] Cardiology [phone] [place], [place] [address] Social History Tobacco Use Types [...] 03/15/2022 Office Visit Neurology Ryann Barfield, SHMUEL [facility] [place] [address] 03/23/2022 Appointment Radiology Hailey Mcclendon MD [facility] [address] [place] [address] 03/23/2022 Laboratory Appointment Lab 03/23/2022 Office Visit Gastroenterology Hailey Mcclendon MD [facility] [address] [place] [address] 05/23/2022 Procedure visit Maxillofacial Surgery Corby Montes MD [facility] [address] [place] [address] documented as of this encounter Goals Goal Patient Goal Associated Recent Patient-Stated? Author Type Problems Progress meal Lifestyle Not on track No Jeet, timing/food (08/26/2020 ilda Solitario 9:40 AM EST) FORGEMAN HELPER Note: Formatting of this note might be d ifferent from the original. Try tracking using my fitnesspal or note book Use your date book to keep track of thin gs you need to do to improve your health. Meal timing: consider eating biggest troy l mid day, trimmer loader dinner, try not to eat after dinner-try [...] or 1 c up Low fat plain [place] Yogurt or 3 eggs or 3 ounces of meat 3. Restart Protien shakes using Unsweete mariam [place] Milk 4. Consider Meal replacements such as Le na Cuisine or Healthy Choice (read label to reach 20 grams of protein) 5. Keep hard boiled eggs on hand 6. Aim for reducing fruit intake to 2 se rvings/day 1. Consider Investigating Deepka Stephanie 'What are you hungry for? 2. Restart Protien shakes using Unsweete mariam [place] Milk 3. When you feel well enough, boil a doz en hard boiled eggs Other (Enter personal goal) Lifestyle No Fredette, Shaila I, RD Note: Formatting of this note might be d ifferent from the original. Nutrition Goals: 1. Consider Investigating Salena Brown 'What are you hungry for? 2. Restart Protien shakes using Unsweete mariam [place] Milk 3. When you feel well enough, boil a doz en hard boiled eggs documented as of this encounter Results Ziopatch 48 Hrs-15 Days (02/24/2021 8:56 AM EDT) Specimen (Source) Anatomical Location Collection Method / Collectio n Time Received Time / Laterality Volume Narrative Roberto Aguirre MD - 03/25/2021 6:40 PM EDT [facility] ? [facility] Ambulatory Cardiac Event Monit [...] atrial fibrillatio n seen. Roberto Aguirre MD [facility] See link to pdf document of the primary data under Scans on Order below. Joni Drew MD CARDIAC SERVICES ORDERABLES documented in this encounter Visit Diagnoses Diagnosis Palpitations - Primary Palpitations documented in this encounter Care Teams Police Service Technician Relationship Specialty Start Date End Date Albert Zuleta MD PCP - General Family Medicine 01/17/17 10/26/21 [place] [address] documented as of this encounter
--- OUTSIDE RECORDS SUMMARY | 2022-02-08 01:50 | XMS_ITS | Encounter Summary ---
:1960 Author Organization [facility] [place] [address] Care Team Providers Name Role Phone Albert Zuleta MD Primary Care Provider Encounter Details Date Type Department Care Team Description 09/27/2020 Telephone Cardiology at [facility] Raiza Rodriguez, [facility] [place] [address] Social History Tobacco Use Types Packs/Day [...] APRN [facility] [address] [place] [address] 03/23/2022 Appointment Radiology Hailey Mcclendon MD [facility] [address] [place] [address] 03/23/2022 Laboratory Appointment Lab 03/23/2022 Office Visit Gastroenterology Hailey Mcclendon MD [facility] [address] [place] [address] 05/23/2022 Procedure visit Maxillofacial Surgery Corby Montes MD [facility] [address] [place] [address] documented as of this encounter Goals Goal Patient Goal Associated Recent Patient-Stated? Author Type Problems Progress meal Lifestyle Not on track Sandra Marcano timing/food (08/26/2020 lida Solitario 9:40 AM EST) SHMUEL Note: Formatting of this note might be d ifferent from the original. Try tracking using my fitnesspal or note book Use your date book to keep track of thin gs you need to do to improve your health. Meal timing: consider eating biggest troy l mid day, hospital staff pharmacist dinner, try not to eat after dinner-try [...] track (08/26/2020 9:43 AM EST) Iman Hannon, AUTOMATION TECHNICIAN Note: Formatting of this note might be [...] or 1 c up Low fat plain [place] Yogurt or 3 eggs or 3 ounces of meat 3. Restart Protien shakes using Unsweete mariam [place] Milk 4. Consider Meal replacements such as Le na Cuisine or Healthy Choice (read label to reach 20 grams of protein) 5. Keep hard boiled eggs on hand 6. Aim for reducing fruit intake to 2 se rvings/day 1. Consider Investigating Deepka Stephanie 'What are you hungry for? 2. Restart Protien shakes using Unsweete mariam [place] Milk 3. When you feel well enough, boil a doz en hard boiled eggs Other (Enter personal goal) Lifestyle No Shaila Duffy RD Note: Formatting of this note might be d ifferent from the original. Nutrition Goals: 1. Consider Investigating Deepka Stephanie 'What are you hungry for? 2. Restart Protien shakes using Unsweete mariam [place] Milk 3. When you feel well enough, boil a doz en hard boiled eggs documented as of this encounter Visit Diagnoses Not on filedocumented in this encounter Care Teams High School Social Studies Tutor Relationship Specialty Start Date End Date Albert Zuleta MD PCP - General Family Medicine 01/17/17 10/26/21 [address] [place] [id number] documented as of this encounter
--- OUTSIDE RECORDS SUMMARY | 2022-02-08 01:50 | XMS_ITS | Encounter Summary ---
:1960 Author Organization [facility] [place] [address] Care Team Providers Name Role Phone Albert Zuleta MD Primary Care Provider Encounter Details Date Type Department Care Team Description 10/05/2020 TH Visit Cardiology at [facility] Rajendra, Cardiomyopathy, unspecified type; (TeleHealth) [facility] Joni Akhtar MD ASCVD (arteriosclerotic cardiovascular d isease); [facility] [place], [place] [facility] [phone] Cardiology [phone] [place] [address] Social History Tobacco Use Types Packs/Day Years [...] documented as of this encounter Progress Notes Joni Drew MD - 10/05/2020 1:00 PM EDT Cardiology Clinic Note CC: CHF Patient Name: Blossom Samayoa HPI: 58 yr old woman with a medical history notable for non-ischemic cardiomyopathy, HTN, MOSES on CPAP, COPD, diabetes, IBS, nephrolithiasis, hyperparathyroidism s/p parathyroidectomy, and an abdominal wall hernia s/p surgical repair. States that she is feeling good from cardiac perspective. Denies any acute cardiac concerns or questions. Admits that she does feel winded at times and notices this is worse physical exertion. She states that this has been going on for years but is worse in the past year. States I am not worried about this. I just notice it. Does not feel this is progressing or worsening in any way. She attributes her symptoms to weight gain-- has gained 55 lbs in this time frame. States that this is due to dietary indiscretion. Currently working with a hospital insurance clerk to lose weight. Denies orthopnea, PND, edema, or recent weight gain. Compliant with CPAP. Social Hx: - Lives in [place], [place] - Tobacco: Former smoker; quit 2017 [...] Asthma J45.909 ??? Anxiety F41.9 ??? Depression F32.9 ??? Former smoker Z87.891 ??? Chronic prescription opiate use Z79.891 ??? Renal calculus, left N20.0 ??? Shock R57.9 ??? Abscess L02.91 ??? Hyperparathyroidism, primary E21.0 ??? MOSES (obstructive sleep apnea) G47.33 ??? Insomnia G47.00 ??? 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 Cirrhosis K74.60 Current Outpatient Medications: ??? metFORMIN (Glucophage) 500 mg Tablet, Take [...] once a week., Disp: , Rfl: ??? HYDROcodone-acetaminophen (NORCO) 5-325 mg Tablet, Take 1 tablet by mouth 2 times daily. Mostly takes at night for sleep, Disp: , Rfl: ??? aspirin 81 mg Tablet, Chewable, Take 81 mg by mouth daily., Disp: 30 tablet, Rfl: 3 ??? levalbuterol (XOPENEX HFA) 45 mcg/actuation HFA Aerosol Inhaler, INHALE TWO PUFFS BY MOUTH EVERY4 TO 6 HOURS NEEDED, Disp: , Rfl: 3 ??? INCRUSE ELLIPTA 62.5 mcg/actuation Disk with Device, INHALE ONE PUFF BY MOUTH EVERY DAY, Disp: ,Rfl: 5 ??? loratadine (CLARITIN) 10 mg Tablet, TAKE ONE TABLET BY MOUTH EVERY DAY NEEDED, Disp: , Rfl: 3 ??? gabapentin (NEURONTIN) 600 mg Tablet, TAKE ONE TABLET BY MOUTH THREE TIMES A DAY, Disp: , Rfl: 1 ??? spironolactone (ALDACTONE) 25 mg Tablet, TAKE ONE TABLET BY MOUTH EVERY DAY, Disp: , Rfl: 3 ??? lisinopril (PRINIVIL;ZESTRIL) 5 mg Tablet, TAKE ONE TABLET BY MOUTH DAILY, Disp: , Rfl: 3 EKG (08/28/2018): Sinus, LBBB, HR: 79 BPM Diagnostic Studies: TTE (12/2019) 1. There is low normal [...] ASSESSMENT: Ms. Samayoa is a very nice 59 yr old woman with morbid obesity, nonischemic cardiomyopathy, hypertension, MOSES, COPD, diabetes, IBS, nephrolithiasis s/p ureteral stent, and abdominal wall abscess s/p long complicated hospitalization. We did a phone visit today for routine annual follow-up. She has no acute concerns to report today but does mention that she has been feeling dyspneic with exertion for the past year or so. Symptoms are mild, stable, and she has not concerned by them. The feeling of dyspnea has evolved over the same time. During which she has gained 55 pounds due to dietary indiscretion. She feels as though her symptoms are directly related to her weight gain, which may be the case. I discussed the rationale for considering a stress test though she was not interested in pursuing that at this time. I strongly encouraged her to reach out to me with any change or worsening in her symptoms, which she agreed to do. We reviewed the results of her echocardiogram from last summer which demonstrated that her LVEF improved to the normal range (54%) from a tomas of 30% (December/2018). She remains on guideline directed medical therapies for her cardiomyopathy including carvedilol, lisinopril, and spironolactone. I made no changes to this regimen today. She is working on improving her diet and losing weight. PLAN: # Cardiomyopathy, non-ischemic - LVEF improved to 54%; was as low as 30% (12/2018) - Continue carvedilol 12.5 mg BID, lisinopril 5 mg daily, and spironolactone # ASCVD, non-obstructive - Continue atorvastatin, ASA # Hypertension, controlled - Will continue to monitor Joni Drew MD, FACP, FACC Section of Cardiovascular Medicine [facility] Barrel Headerinjection molding operator [facility] [employer] [facility] documented in this encounter Plan of Treatment Upcoming Encounters Date Type Specialty Care Team Description 03/15/2022 Office Visit Neurology Ryann Barfield APRN [facility] [address] [place] [address] 03/23/2022 Appointment Radiology Hailey Mcclendon MD [facility] [place] [address] 03/23/2022 Laboratory Appointment Lab 03/23/2022 Office Visit Gastroenterology Hailey Mcclendon MD [facility] [place] [address] 05/23/2022 Procedure visit Maxillofacial Surgery Corby Montes MD [facility] [address] [place] [address] documented as of this encounter Goals [...] consider eating biggest troy l mid day, automotive brake technician dinner, try not to eat after [...] (08/26/2020 9:40 AM EST) No Iman Marcano, PERINATAL TECH Note: Formatting of this note might be [...] (08/26/2020 9:40 AM EST) No Iman Marcano, PERINATAL TECH Note: Formatting of this note might be [...] or 1 c up Low fat plain Bolivian Yogurt or 3 eggs or 3 ounces of meat 3. Restart Protien shakes using Unsweete mariam [place] Milk 4. Consider Meal replacements such as Le na Cuisine or Healthy Choice (read label to reach 20 grams of protein) 5. Keep hard boiled eggs on hand 6. Aim for reducing fruit intake to 2 se rvings/day 1. Consider Investigating Deepka Stephanie 'What are you hungry for? 2. Restart Protien shakes using Unsweete mariam [place] Milk 3. When you feel well enough, boil a doz en hard boiled eggs Other (Enter personal goal) Lifestyle No Shaila Duffy I, RD Note: Formatting of this note might be d ifferent from the original. Nutrition Goals: 1. Consider Investigating Deepka Stephanie 'What are you hungry for? 2. Restart Protien shakes using Unsweete mariam [place] Milk 3. When you feel well enough, boil a doz en hard boiled eggs documented as of this encounter Visit Diagnoses Diagnosis Cardiomyopathy, unspecified type ASCVD (arteriosclerotic cardiovascular d isease) Unspecified cardiovascular disease Essential hypertension Unspecified essential hypertension documented in this encounter Care Teams Warhead Maintenance Specialist Relationship Specialty Start Date End Date Albert Zuleta MD PCP - General Family Medicine 01/17/17 10/26/21 [place] [address] documented as of this encounter
--- OUTSIDE RECORDS SUMMARY | 2022-02-08 01:50 | XMS_ITS | Encounter Summary ---
:1960 Author Organization [facility] Address [facility] [place] [address] Care Team Providers Name Role Phone Albert Zuleta MD Primary Care Provider Reason for Visit Consultation (Routine) - Specialty Diagnoses / Procedures Referred By Contact Refer red To Contact General Surgery Diagnoses Morbid (severe) obesity due to excess calories MORBID OBESITY Albert Zuleta MD [facility] Gen Surgery 4l Procedures treatment of morbid obesity [address], [place] [address] [address] [place] [address] Fax: Referral ID Status Reason Start Date Expiration Date Visits V isits Requested Authorized [id number] Consult, Test 03/12/2020 09/12/2020 [facility] PCP Updated and/or Approved Encounter Details Date Type Department Care Team Description 03/26/2020 Notes Only General Surgery at [facility] [place] [address] Social History Tobacco Use Types Packs/Day [...] documented as of this encounter Progress Notes Stacey Washington - 03/26/2020 2:00 PM EDT Patient attended the intro session on 03/26/2020 and the enrollment packet was mailed on 03/30/2020 documented in this encounter Plan of Treatment Upcoming Encounters Date Type Specialty Care Team Description 03/15/2022 Office Visit Neurology Ryann Barfield, [facility] [address] [place], [place] [address] 03/23/2022 Appointment Radiology Hailey Mcclendon MD [facility] [address] [place] [address] 03/23/2022 Laboratory Appointment Lab 03/23/2022 Office Visit Gastroenterology Hailey Mcclendon MD [facility] [address] [place] [address] 05/23/2022 Procedure visit Maxillofacial Surgery Corby Montes MD [facility] [address] [place] [address] documented as of this encounter Visit Diagnoses Not on filedocumented in this encounter Care Teams Propeller Engineer Relationship Specialty Start Date End Date Albert Zuleta MD PCP - General Family Medicine 01/17/17 10/26/21 [place] [address] documented as of this encounter
--- OUTSIDE RECORDS SUMMARY | 2022-02-08 01:50 | XMS_ITS | Encounter Summary ---
:1960 Author Organization [facility] [place] [address] Care Team Providers Name Role Phone Albert Zuleta MD Primary Care Provider Encounter Details Date Type Department Care Team Description 09/14/2020 Telephone Weight and Wellness at [facility] Agata Rich [address] [place] [address] Social History Tobacco Use Types Packs/Day Years [...] this encounter Miscellaneous Notes Telephone Encounter - Agata Rich - 09/14/2020 3:57 PM EST Spoke to patient who declined to join any upcoming ACT classes; removed from wait list. UNA documented in this encounter Plan of Treatment Upcoming Encounters Date Type Specialty Care Team Description 03/15/2022 Office Visit Neurology Ryann Barfield APRN [facility] [place] [address] 03/23/2022 Appointment Radiology Hailey Mcclendon MD [facility] [address] [place] [address] 03/23/2022 Laboratory Appointment Lab 03/23/2022 Office Visit Gastroenterology Hailey Mcclendon MD [facility] [address] [place] [address] 05/23/2022 Procedure visit Maxillofacial Surgery Corby Montes MD [facility] [address] [place] [address] documented as of this encounter Goals Goal Patient Goal Associated Recent Patient-Stated? 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 Try tracking using my fitnesspal or note book Use your date book to keep track of thin gs you need to do to improve your health. Meal timing: consider eating biggest troy l mid day, postal carrier dinner, try not to eat after dinner-try [...] or 1 c up Low fat plain Russian Yogurt or 3 eggs or 3 ounces of meat 3. Restart Protien shakes using Unsweete mariam [place] Milk 4. Consider Meal replacements such as Le na Cuisine or Healthy Choice (read label to reach 20 grams of protein) 5. Keep hard boiled eggs on hand 6. Aim for reducing fruit intake to 2 se rvings/day 1. Consider Investigating Deepka Stephanie 'What are you hungry for? 2. Restart Protien shakes using Unsweete mariam [place] Milk 3. When you feel well enough, boil a doz en hard boiled eggs documented as of this encounter Visit Diagnoses Not on filedocumented in this encounter Care Teams Database Marketing Manager Relationship Specialty Start Date End Date Albert Zuleta MD PCP - General Family Medicine 01/17/17 10/26/21 [address] [place] [phone] documented as of this encounter
--- OUTSIDE RECORDS SUMMARY | 2022-02-08 01:50 | XMS_ITS | Encounter Summary ---
:1960 Author Organization [facility] [place] [address] Care Team Providers Name Role Phone Albert Zuleta MD Primary Care Provider Encounter Details Date Type Department Care Team Description 07/22/2020 External Results Weight and Wellness at [facility] [address] [place] [address] Social History Tobacco Use Types Packs/Day Years [...] Barfield, SHMUEL [facility] [address] [place] [place], [place] [address] 03/23/2022 Appointment Radiology Hailey Mcclendon MD [facility] [address] [place] [address] 03/23/2022 Laboratory Appointment Lab 03/23/2022 Office Visit Gastroenterology Hailey Mcclendon MD [facility] [address] [place] [address] 05/23/2022 Procedure visit Maxillofacial Surgery Corby Montes MD [facility] [address] [place] [address] documented as of this encounter Procedures Procedure Name Priority Date/Time Associated Diagnosis Comme nts [facility] EXTERNAL RESULT Routine 03/12/2020 Results for this PANEL procedure are i n the results section . CBC (WITH DIFF) Routine 03/12/2020 Results for this procedure are i n the results section . documented in this encounter Results (ABNORMAL) CBC (with Diff) (03/12/2020) athologist Signature WBC 10.37 (External Lab) RBC 3.76 (ExtL) Hemoglobin 11.6 (External Lab) Hematocrit 36.0 (External Lab) MCV 95.7 (ExtH) MCH 30.9 (External Lab) MCHC 32.2 (External Lab) RDWCV 13.1 (External Lab) Platelets 193 (External Lab) MPV 11 (External Lab) Specimen (Source) Anatomical Location Collection Method / Collectio n Time Received Time / Laterality Volume Blood specimen 03/12/2020 (specimen) Historical Provider HEMATOLOGY ORDERABLES (ABNORMAL) [facility] External Results (03/12/2020) [facility] Method Time Signature BUN 15 (External Lab) Creatinine 0.85 (External Lab) Sodium 135 (ExtL) Potassium 4.5 (External Lab) Chloride 100 (External Lab) CO2 23 (External Lab) Anion Gap 12 (ExtH) Calcium 9.7 (External Lab) Total Protein 7.7 (External Lab) Albumin 4 (External Lab) AST 52 (ExtH) ALT 59 (External Lab) Alk Phos 93 (External Lab) Total Bilirubin 0.7 (External Lab) Estimated GFR >60 (External Lab) Glucose Lvl 240 (ExtH) Specimen (Source) Anatomical Location Collection Method / Collectio n Time Received Time / Laterality Volume 03/12/2020 Historical Provider MD POINT OF CARE TEST ORDERABLE S documented in this encounter Visit Diagnoses Not on filedocumented in this encounter Care Teams Nitro Worker Relationship Specialty Start Date End Date Albert Zuleta MD PCP - General Family Medicine 01/17/17 10/26/21 [address] [place] [id number] documented as of this encounter
--- OUTSIDE RECORDS SUMMARY | 2022-02-08 01:50 | XMS_ITS | Encounter Summary ---
:1960 Author Organization [facility] [place] [address] Care Team Providers Name Role Phone Albert Zuleta MD Primary Care Provider Reason for Visit Reason Comments Hematuria Encounter Details Date Type Department Care Team Description 11/15/2020 TH Visit Urology at [facility] Crow Galvin Jr., Gross hematuria (TeleHealth) [place] [address] UROLOGY DEPT. [place], [place] [address] (Wo rk) Social History Tobacco [...] documented as of this encounter Progress Notes Crow Galvin Jr., MD - 11/15/2020 1:30 PM EDT Images from the original note were not included. Blossom Samayoa elected a telephone office visit. I obtained verbal consent from the patient to proceed with a telephone visit that may be billed similar to a clinic visit. HPI: Blossom Samayoa is a very pleasant 59 y.o.woman who presents for urgent telehealth visit regarding hematuria. She states she had noted onset of bloody urine approximately 4-6 weeks ago. She denies associated flank pain and does not feel like this is consistent with prior kidney stone attacks. She felt her urine may have appeared slightly cloudy, but reports that urinalysis and urine culture showed no evidence of infection. She presented to her primary care physician Dr. Zuleta at [facility]. He obtained a CT urogram which revealed no evidence of renal masses or renal pelvic or ureteral filling defects. Bilateral nonobstructing calyceal renal stones are noted largest approximately 8 mm left lowerpole and 2 each 5 to 6 mm in the right kidney. She was seen by her local urology physician assistantand cystoscopy was recommended. It was felt she would benefit from cystoscopy under anesthesia, but her comorbidities would prevent her from having the procedure performed there. She contacted us to discuss further evaluation. Over the last several weeks, she has had continued hematuria and states that she does not recall the urine being clear since this all began. She notes some dysuria which she finds similar to discomfort she had with stents in the past. Regarding her history of nephrolithiasis, she has previously been seen in the multi-disciplinary metabolic stone clinic for urologic follow up regarding mixed CaOx / CaPhos urolithiasis. She reports prior history of sarcoidosis and HyperPTH. She underwent parathyroidectomy in July 2019 under the care of Dr. Mcmahon. We had last seen her in multi-disciplinary metabolic stone clinic 12/2019 and had planned follow up 24h urine and follow up assessment. However, she cancelled scheduled follow up visit in stone clinic in both 06/01/2020 and 09/28/2020. ?? She had preiously been??admitted to the Medicine Service on 07/09/2019 for nausea, vomiting, leukocytosis and UTI. CT showed right hydronephrosis, large??right UPJ stone and obstructing??right UVJ stone, as well as a large left renal stone burden which was non-obstrcuting. Urine culture revealed Proteus Mirabilis. She??underwent right PCNL with u/s guided access??on??09/26/18. ??Intraoperative findingswere notable for encrusted right ureteral stent as well as large upper pole stones.?She??had a ??postoperative course notable for??proteus??urosepsis??and was discharged home on 2 week course of iv c efepime. She then underwent left PCNL on 11/07/18. Intraoperative findings were notable for large renal stone and several smaller stones seen in lower pole calyx on retrograde ureteroscopy, >2cm total stone burden Postop CT confirmed she had been rendered stone free bilaterally. Past Medical History: Cardiomyopathy Diabetes Depression obesity HTN HLD MOSES Chronic pain Nephrolithiasis - has had several lithotripsies in the past ?? Past Surgical History: Lithotripsies Open cholecystectomy Open total hysterectomy Bilateral PCNL ?? Family History: No family history of kidney stones ?? Social History Lives alone Former smoker (quit 2017) No EtOH ?? Prior Stone Analysis:?? 60% Calcium phosphate 20% Magnesium ammonium phosphate (struvite) 10% Calcium oxalate dihydrate 10% Calcium carbonate?Imaging studies. I independently reviewed the CT urogram images and its accompanying report from [facility] dated 10/18/2020. This reveals the aforementioned bilateral nonobstructing renal stones. No evident renal masses or hydronephrosis, or renal pelvic or ureteral filling defects are identified. Stone Analysis(10/2018): 60% Calcium phosphate (apatite); 30% Calcium oxalate dihydrate;10% Calcium oxalate monohydrate ??24 hour urine --repeat not yet collected ? Impression/Plan: Gross hematuria of unclear etiology. 1) gross hematuria. We discussed at length the typical evaluation of hematuria hematuria as well as the rationale for it. We discussed risks of underlying infection, inflammation, vascular abnormality,stone, or neoplasm, as well as the potential that a definite source of bleeding is not identified. Ioffered to complete her evaluation with cystoscopy. We discussed the role of possible retrograde pyelograms to ensure no interval migration of the stones. I recommended she hold her 81 mg aspirin if cleared by her primary care. She states her urine has been recently studied by urinalysis and culture and was without evidence of infection. Follow-up urinalysis is recommended. She wishes to proceed withcystoscopy possible bilateral retrograde pyelogram and possible biopsy under anesthesia. We will coordinate and schedule with her. We discussed that if a definite source not identified we may plan follow-up imaging and or endoscopy. 2) Prior marked hypercalciuria. We again discussed that both hyperparathyroidism as well as sarcoidosis may contribute to this. She has now successfully undergone neck exploration and parathyroidectomyand her serum calcium had been noted to have reduced. We will await the repeat 24-hour urine to assess urinary calcium excretion. We had planned follow up in multi-disciplinary metabolic stone clinic But she had cancelled the scheduled visit as well as a rescheduled visit in 09/2020. After acute issueshave resolved, we will offer follow up n multi-disciplinary metabolic stone clinic if she wishes to proceed 3)Hyperoxaluria. We had previously discussed a lower oxalate diet and will await follow-up in multi-disciplinary metabolic stone clinic Total visit time 33 minutes -- 23 minutes were spent in phone consult and 10 minutes in review of imaging and records, and documentation of encounter documented in this encounter Plan of Treatment Upcoming Encounters Date Type Specialty Care Team Description 03/15/2022 Office Visit Neurology Ryann Barfield APRN [facility] [address] [place] [address] 03/23/2022 Appointment Radiology Hailey Mcclendon MD [facility] [place] [address] 03/23/2022 Laboratory Appointment Lab 03/23/2022 Office Visit Gastroenterology Hailey Mcclendon MD [facility] [place] [address] 05/23/2022 Procedure visit Maxillofacial Surgery Corby Montes MD [facility] [address] [place] [address] documented as of this encounter Goals Goal Patient Goal Associated Recent Patient-Stated? Author Type Problems Progress meal Lifestyle Not on track Sandra Marcano, timing/food (08/26/2020 ilda Solitario 9:40 AM EST) CHEMIST INSTRUMENTATION Note: Formatting of this note might be d ifferent from the original. Try tracking using my fitnesspal or note book Use your date book to keep track of thin gs you need to do to improve your health. 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 Restart Protien shakes using Unsweete mariam [place] Milk 4. Consider Meal replacements such as Le na Cuisine or Healthy Choice (read label to reach 20 grams of protein) 5. Keep hard boiled eggs on hand 6. Aim for reducing fruit intake to 2 se rvings/day 1. Consider Investigating Deepka Stephanie 'What are you hungry for? 2. Restart Protien shakes using Unsweete mariam [place] Milk 3. When you feel well enough, boil a doz en hard boiled eggs Other (Enter personal goal) Lifestyle No Shaila Duffy I, RD Note: Formatting of this note might be d ifferent from the original. Nutrition Goals: 1. Consider Investigating Deepka Stephanie 'What are you hungry for? 2. Restart Protien shakes using Unsweete mariam [place] Milk 3. When you feel well enough, boil a doz en hard boiled eggs documented as of this encounter Visit Diagnoses Diagnosis Gross hematuria documented in this encounter Care Teams Turpentine Distiller Relationship Specialty Start Date End Date Albert Zuleta MD PCP - General Family Medicine 01/17/17 10/26/21 [place] [address] documented as of this encounter
--- OUTSIDE RECORDS SUMMARY | 2022-02-08 01:50 | XMS_ITS | Encounter Summary ---
:1960 [place] [address] Care Team Providers Name Role Phone Albert Zuleta MD Primary Care Provider Encounter Details Date Type Department Care Team Description 10/18/2020 [facility] [address] UROLOGY DEPT. [phone] [place], [place] [address] (Wo rk) Social History Tobacco [...] 03/15/2022 Office Visit Neurology Ryann Barfield, [facility] [address] [place], [place] [address] 03/23/2022 Appointment Radiology Hailey Mcclendon MD [facility] [address] [place] [address] 03/23/2022 Laboratory Appointment Lab 03/23/2022 Office Visit Gastroenterology Hailey Mcclendon MD [facility] [address] [place] [address] 05/23/2022 Procedure visit Maxillofacial Surgery Croby Montes MD [facility] [address] [place] [address] documented as of this encounter [...] consider eating biggest troy l mid day, grain cleaner and transfer operator dinner, try not to eat after [...] or 1 c up Low fat plain Norwegian Yogurt or 3 eggs or 3 ounces of meat 3. Restart Protien shakes using Unsweete mariam [place] Milk 4. Consider Meal replacements such as Le na Cuisine or Healthy Choice (read label to reach 20 grams of protein) 5. Keep hard boiled eggs on hand 6. Aim for reducing fruit intake to 2 se rvings/day 1. Consider Investigating Deepka Stephanie 'What are you hungry for? 2. Restart Protien shakes using Unsweete mariam [place] Milk 3. When you feel well enough, boil a doz en hard boiled eggs Other (Enter personal goal) Lifestyle No Shaila Duffy RD Note: Formatting of this note might be d ifferent from the original. Nutrition Goals: 1. Consider Investigating Deepka Stephanie 'What are you hungry for? 2. Restart Protien shakes using Unsweete mariam [place] Milk 3. When you feel well enough, boil a doz en hard boiled eggs documented as of this encounter Procedures Procedure Name Priority Date/Time Associated Diagnosis Comme nts FILM LIBRARY Routine 10/18/2020 12:00 AM Results for this STORAGE ONLY CT EDT procedure ar e in ABDOMEN AND PELVIS the resul ts section. documented in this encounter Results Film Library- Storage Only CT Abdomen & Pelvis (10/18/2020 12:00 AM EDT) Specimen (Source) Anatomical Location Collection Method / Collectio n Time Received Time / Laterality Volume Narrative DH RAD - 10/21/2020 4:49 PM EDT This exam is auto-finalizing. It's purpo se is for storage only. Crow Galvin Jr., MD IMG FILM LIBRARY ORDERABLES Performing Organization Address City/State/ZIP Code Phon e Number [place], [place] documented in this encounter Visit Diagnoses Not on filedocumented in this encounter Care Teams Locator Specialist Relationship Specialty Start Date End Date Albert Zuleta MD PCP - General Family Medicine 01/17/17 10/26/21 [address] [place] [address] documented as of this encounter
--- OUTSIDE RECORDS SUMMARY | 2022-02-08 01:50 | XMS_ITS | Encounter Summary ---
:1960 Author Organization [facility] [place] [address] Care Team Providers Name Role Phone Albert Zuleta MD Primary Care Provider Reason for Referral Diagnostic Test (Routine) - Closed Specialty Diagnoses / Procedures Referred By Contact Refer red To Contact Cardiology Diagnoses Cardiomyopathy, unspecified type Joni Drew MD [facility] Non-Inv Card Lab Procedures Echocardiogram Transthoracic([facility]) [facility] [place] [address] [place] [address] Fax: Referral ID Status Reason Start Date Expiration Date Visits V isits Requested Authorized [id number] Closed Specialty 11/06/2019 11/05/2020 1 1 Service Requested Reason for Visit Diagnostic Test (Routine) - Closed Specialty Diagnoses / Procedures Referred By Contact Refer red To Contact Cardiology Diagnoses Cardiomyopathy, unspecified type Joni Drew MD [facility] Non-Inv Card Lab Procedures Echocardiogram Transthoracic([facility]) [facility] [place] [address] [place] [address] Fax: Referral ID Status Reason Start Date Expiration Date Visits V isits Requested Authorized [id number] Closed Specialty 11/06/2019 11/05/2020 1 1 Service Requested Encounter Details Date Type Department Care Team Description 12/30/2019 Hospital Encounter Non-Invasive Dade[place]ian, Cardiomyo mitch, Cardiology Lab Miller [place]ley unspecified type [facility] [place] [phone] Social History Tobacco Use Types Packs/Day Years [...] Sig Dispensed Refills Start Date End Date tiotropium (Spiriva) 18 Inhale 1 capsule into 0 0 02/03/2013 mcg Capsule, the lungs. w/Inhalation Device Trulicity 1.5 mg/0.5 mL 0 11/23/2019 Pen [...] 03/09/2018 (PRINIVIL;ZESTRIL) 5 mg MOUTH DAILY Tablet carvediloL (Coreg) 12.5 Take 25 mg by mouth 2 0 01/22/2020 mg Tablet times daily (with meals). Take 2 tablets twice daily; increase CALCIUM CITRATE ORAL Take 600 mg by mouth 2 0 07/29/2020 times daily. metFORMIN (GLUCOPHAGE) Take 1,000 mg by mouth 0 07/29/2020 500 mg Tablet 2 times daily (with meals). HYDROcodone-acetaminoph Take 1 tablet by mouth 0 12/28/2020 en (NORCO) 5-325 mg 2 times daily. Mostly Tablet takes at night for sleep levalbuterol (XOPENEX INHALE TWO PUFFS BY 3 05/0712/28/2020 HFA) 45 mcg/actuation MOUTH EVERY 4 TO 6 HFA Aerosol Inhaler HOURS NEEDED INCRUSE ELLIPTA 62.5 INHALE ONE PUFF BY 5 018 12/28/2020 mcg/actuation Disk with MOUTH EVERY DAY Device documented as of this encounter Plan of Treatment Upcoming Encounters Date Type Specialty Care Team Description 03/15/2022 Office Visit Neurology Ryann Barfield, [facility] [address] [place], [place] [address] 03/23/2022 Appointment Radiology Hailey Mcclendon MD [facility] [place] [address] 03/23/2022 Laboratory Appointment Lab 03/23/2022 Office Visit Gastroenterology Hailey Mcclendon MD [facility] [place] [address] 05/23/2022 Procedure visit Maxillofacial Surgery Corby Montes MD [facility] [address] [place] [address] documented as of this encounter Procedures Procedure Name Priority Date/Time Associated Comments Diagnosis ECHOCARDIOGRAM COMPLETE Routine 12/30/2019 2:21 Cardiomyopathy , Results for this W CONTRAST PM EDT unspecified type procedure a re in the results section. documented in this encounter Results ECHOCARDIOGRAM COMPLETE W CONTRAST (12/30/2019 2:21 PM EDT) P athologist Signature EF 54 [facility] SYSTEM Specimen (Source) Anatomical Location Collection Method / Collectio n Time Received Time / Laterality Volume 12/30/2019 Narrative [facility] - 12/30/2019 2:37 PM EDT Procedure: ?Transthoracic Echocardiogram Patient: ?TARA Ray ?(Age): 1960(59y) Med Rec#: ? [id number] ?Sex: ?F ? Site Loc: ? [facility] ?Ht / Wt: ??168(cm)/135(kg) Pt. Loc: ?Echo Lab ?BSA: ?2.37 Study Date: ?? 12/30/2019 ?Pt. Type: Outpatient Tape: ? Referring: CARMELITAHermilo Reading: Leonel Miller ([id number]) [employer] Teacher: Latoya Barcenas [employer] Teacher: Patricia Escobar Physical Therapy Aides Teacher: Kentrell Candelario [facility] Diagnosis: *Cardiomyopathy, unspecified (I42.9) BP: ? 153/88 SUMMARY: 1. There is low normal global left ventr icular systolic function. The quantitative left ventricular ejection f raction by biplane Harden's method is 54%. The ??basal anteroseptal, basal inferior, basal inferoseptal, mid anteroseptal, mid infe rior, mid inferoseptal, apical septal, and ??apical inferior wall segme nts are akinetic (score 3). The apical anterior wall segment is hypokine tic (score 2). 2. Right ventricular global systolic fun ction is normal. 3. Basal septal hypertrophy is observed. There is no evidence of LVOT obstruction. There is mild dilatation of the aortic root. 3.7 cm 4. No significant valvular disease. The aortic valve is tricuspid. The mitral valve leaflets are mildly thicken ed. There is posterior mitral annular calcification. The mean gradient across the mitral valve is 3 mmHg. at 79 BPM. 5. The pericardium appears normal and th ere is no evidence of a pericardial effusion. Pulmonary artery h ypertension could not be assessed due to inadequate tricuspid reg urgitation jet. 6. When compared to the prior 01/05/19 [facility], global LV function has improved (EF=30%-->54%), and the lateral and apical wall motion abnormalities have improved, with persis tent septal wall motion abnormalities. ?? Findings ? : Study Quality: ? Technically limited Left Ventricle: ? The left ventricul ar chamber size is normal. ?Basal septal hypertrophy is observ ed. ?There is no evidence of LVOT obstr uction. ?No ventricular septal defect is vi sualized. ?There is normal global left ventri cular systolic function. ?The quantitative left ventricular ejection fraction by biplane Harden's method is 54%. ?There are left ventricular segment al wall motion abnormalities present, as shown in the diagram below. ?Left ventricular diastolic functio n is normal. ?Doppler assessment is consistent w ith normal left sided filling pressure. ?The ??apical anterior wall segment is hypokinetic (score 2). ?The ??basal anteroseptal, basal in ferior, basal inferoseptal, mid anteroseptal, mid inferior, mid inferose ptal, apical septal, and ??apical inferior wall segments are akinetic (sco re 3). ?Overall wallmotion score index is ??2.06 Left Atrium: ? The left atrium is no rmal in size. Right Ventricle: ? The right ventric le is probably normal in size. ?Right ventricular global systolic function is normal. ?Pulmonary artery hypertension coul d not be assessed due to inadequate tricuspid regurgitation jet. Right Atrium: ? The right atrium jonathan ears normal. Aortic Valve: ? The aortic valve is tricuspid. ?The aortic valve leaflets are mild ly thickened. ?Systolic excursion of the aortic v alve is normal. ?There is aortic annular calcificat ion. ?There is no evidence of aortic maureen ve stenosis. ?There is no evidence of aortic reg urgitation. Mitral Valve: ? The mitral valve liza flets are mildly thickened. ?There is posterior mitral annular calcification. ?The mean gradient across the chris l valve is 3 mmHg.at 79 BPM. ?There is no evidence of mitral javi nosis. ?There is trace mitral regurgitatio n present. Tricuspid Valve: ? The tricuspid maureen ve is not well visualized. ?The tricuspid valve is probably no rmal. ?Doppler evaluation of tricuspid va lve regurgitation is inadequate. Pulmonic Valve: ? The pulmonic valve is not well visualized. ?The pulmonic valve is probably nor mal. ?There is trace pulmonic regurgitat ion present. Pericardium: ? The pericardium appea rs normal and there is no evidence of a pericardial effusion. Aorta: ? There is mild dilatation of the aortic root.3.7 cm ?The ascending aorta is normal in jaz madrigal. Venous: ? The inferior vena cava is poorly visualized. Misc: ? Two-dimensional echo, spectr al Doppler and color Doppler performed. ?Optison contrast (one 3 ml vial) w as used to enhance endocardial definition. Excess contrast was discarde d. Chambers 2D ?Value ?Units (Range) ? IVSd (2D) ? 1.2 ?cm ? LVPWd (2D) ?1.1 ?cm ? IVS:LVPW ratio (2D) 1.09 ? ratio ? RWT (2D) ?0.4 ?ratio ? RWT PW (2D) ? 0.39 ? ratio ? LVIDd (2D) ?5.7 ?cm ? LVIDs (2D) ?5 ?cm ? LVIDd (2D) index ?2.4 ?cm/m2 ? LVIDs (2D) index ?2.11 ? cm/m2 ? LV FS (2D) ?12.28 ?% ? EF Teichholz (2D) ?? 26.12 ?% ? Ao root diameter (2D3.7 ?cm (2.1 - 3.6) ? Ascending Ao ?3.3 ?cm (2 - 3.5) ? Volumes/Mass ?Value ?Units (Range) ? LA Area 4 CH ?15 ? cm2 (<21) ? RA AREA 4CH ? 13 ? cm2 ? LA ESV BP (MOD) inde22.89 ? ml/m2 ? LV ESV SP 4CH (MOD) 90.6 ? ml ? LV ESV SP 2CH (MOD) 55.1 ? ml ? LV EDV BP ? 160 ?ml ? LV ESV BP ? 74.1 ? ml ? LV EDV BP index ? 67.45 ?ml/m2 ? LV ESV BP index ? 31.24 ?ml/m2 ? BP EF (MOD) ? 53.69 ?% ? LV mass (2D) ?272.5 ?g ? LV mass (2D) index ??114.89 ? g/m2 ? Diastolic/Systolic Function ?Value ?Units (Range) ? MV E-wave Vmax ?1.03 ? m/sec ? MV deceleration tugi690 ?msec ? MV A-wave Vmax ?1.03 ? m/sec ? MV E:A ratio ?1 ?ratio ? LV septal e' Vmax ?? 0.06 ? m/sec ? LV lateral e' Vmax ??0.13 ? m/sec ? LV average e' Vmax ??0.1 ?m/sec ? LV E:e' septal ratio17.17 ? ratio ? LV E:e' lateral rati7.92 ? ratio ? LV average E:e' rati10.84 ? ratio ? Mitral Valve ?Value ?Units (Range) ? MV Vmax ? 1.21 ? m/sec ? MV VTI ?32.7 ? cm ? MV peak gradient ?5.86 ? mmHg ? MV mean gradient ?3 ?mmHg ? Wall Motion: Segment Name ?Rest ? Base-Anteroseptal ?? Akinetic ? Base-Anterior ? Normal ? Base-Anterolateral ??Normal ? Base-Posterolateral Normal ? Base-Inferior ? Akinetic ? Base-Inferoseptal ?? Akinetic ? Mid-Anteroseptal ?Akinetic ? Mid-Anterior ?Normal ? Mid-Anterolateral ?? Normal ? Mid-Posterolateral ??Normal ? Mid-Inferior ?Akinetic ? Mid-Inferoseptal ?Akinetic ? Latexo-Septal ? Akinetic ? Latexo-Anterior ? Hypokinetic ? Latexo-Lateral ?Normal ? Latexo-Inferior ? Akinetic ? Latexo-Tip ?Hypokinetic ? This report has been electronically sign ed by: _ Leonel Miller MD ? 12/30/2019 14:36: 44 [facility] Procedure Note Leonel Miller MD - 12/30/2019 Procedure: Transthoracic Echocardiogram Patient: TARA Ray (Age): (59y) Med Rec#: [id number] Sex: F Site Loc: [facility] Ht / Wt: 168(cm)/135(kg) Pt. Loc: Echo Lab BSA: 2.37 Study Date: 12/30/2019 Pt. Type: Outpati ent Tape: Referring: HARMEET Reading: Leonel Miller ([id number]) [employer] Teacher: Latoya Barcenas [employer] Teacher: Patricia Escobar Physical Therapy Aides Teacher: Kentrell Candelario [facility] Diagnosis: *Cardiomyopathy, unspecified (I42.9) BP: 153/88 SUMMARY: 1. There is low normal global left ventr icular systolic function. The quantitative left ventricular ejection f raction by biplane Harden's method is 54%. The basal anteroseptal, b soren inferior, basal inferoseptal, mid anteroseptal, mid infe rior, mid inferoseptal, apical septal, and apical inferior wall segment s are akinetic (score 3). The apical anterior wall segment is hypokine tic (score 2). 2. Right ventricular global systolic fun ction is normal. 3. Basal septal hypertrophy is observed. There is no evidence of LVOT obstruction. There is mild dilatation of the aortic root. 3.7 cm 4. No significant valvular disease. The aortic valve is tricuspid. The mitral valve leaflets are mildly thicken ed. There is posterior mitral annular calcification. The mean gradient across the mitral valve is 3 mmHg. at 79 BPM. 5. The pericardium appears normal and th ere is no evidence of a pericardial effusion. Pulmonary artery h ypertension could not be assessed due to inadequate tricuspid reg urgitation jet. 6. When compared to the prior 01/05/19 [facility], global LV function has improved (EF=30%-->54%), and the lateral and apical wall motion abnormalities have improved, with persis tent septal wall motion abnormalities. Findings : Study Quality: Technically limited Left Ventricle: The left ventricular aimee mber size is normal. Basal septal hypertrophy is observed. There is no evidence of LVOT obstructio n. No ventricular septal defect is visuali zed. There is normal global left ventricular systolic function. The quantitative left ventricular eject ion fraction by biplane Harden's method is 54%. There are left ventricular segmental wa ll motion abnormalities present, as shown in the diagram below. Left ventricular diastolic function is normal. Doppler assessment is consistent with n ormal left sided filling pressure. The apical anterior wall segment is hyp okinetic (score 2). The basal anteroseptal, basal inferior, basal inferoseptal, mid anteroseptal, mid inferior, mid inferose ptal, apical septal, and apical inferior wall segments are akinetic (sco re 3). Overall wallmotion score index is 2.06 Left Atrium: The left atrium is normal i n size. Right Ventricle: The right ventricle is probably normal in size. Right ventricular global systolic funct ion is normal. Pulmonary artery hypertension could not be assessed due to inadequate tricuspid regurgitation jet. Right Atrium: The right atrium appears n ormal. Aortic Valve: The aortic valve is tricus pid. The aortic valve leaflets are mildly th ickened. Systolic excursion of the aortic valve is normal. There is aortic annular calcification. There is no evidence of aortic valve st enosis. There is no evidence of aortic regurgit ation. Mitral Valve: The mitral valve leaflets are mildly thickened. There is posterior mitral annular calci fication. The mean gradient across the mitral maureen ve is 3 mmHg.at 79 BPM. There is no evidence of mitral stenosis . There is trace mitral regurgitation pre sent. Tricuspid Valve: The tricuspid valve is not well visualized. The tricuspid valve is probably normal. Doppler evaluation of tricuspid valve r egurgitation is inadequate. Pulmonic Valve: The pulmonic valve is no t well visualized. The pulmonic valve is probably normal. There is trace pulmonic regurgitation p resent. Pericardium: The pericardium appears nor mal and there is no evidence of a pericardial effusion. Aorta: There is mild dilatation of the a ortic root.3.7 cm The ascending aorta is normal in size. Venous: The inferior vena cava is poorly visualized. Misc: Two-dimensional echo, spectral Dop pler and color Doppler performed. Optison contrast (one 3 ml vial) was us ed to enhance endocardial definition. Excess contrast was discarde d. Chambers 2D Value Units (Range) IVSd (2D) 1.2 cm LVPWd (2D) 1.1 cm IVS:LVPW ratio (2D) 1.09 ratio RWT (2D) 0.4 ratio RWT PW (2D) 0.39 ratio LVIDd (2D) 5.7 cm LVIDs (2D) 5 cm LVIDd (2D) index 2.4 cm/m2 LVIDs (2D) index 2.11 cm/m2 LV FS (2D) 12.28 % EF Teichholz (2D) 26.12 % Ao root diameter (2D3.7 cm (2.1 - 3.6) Ascending Ao 3.3 cm (2 - 3.5) Volumes/Mass Value Units (Range) LA Area 4 CH 15 cm2 (<21) RA AREA 4CH 13 cm2 LA ESV BP (MOD) inde22.89 ml/m2 LV ESV SP 4CH (MOD) 90.6 ml LV ESV SP 2CH (MOD) 55.1 ml LV EDV BP 160 ml LV ESV BP 74.1 ml LV EDV BP index 67.45 ml/m2 LV ESV BP index 31.24 ml/m2 BP EF (MOD) 53.69 % LV mass (2D) 272.5 g LV mass (2D) index 114.89 g/m2 Diastolic/Systolic Function Value Units (Range) MV E-wave Vmax 1.03 m/sec MV deceleration [id number] msec MV A-wave Vmax 1.03 m/sec MV E:A ratio 1 ratio LV septal e' Vmax 0.06 m/sec LV lateral e' Vmax 0.13 m/sec LV average e' Vmax 0.1 m/sec LV E:e' septal ratio17.17 ratio LV E:e' lateral rati7.92 ratio LV average E:e' rati10.84 ratio Mitral Valve Value Units (Range) MV Vmax 1.21 m/sec MV VTI 32.7 cm MV peak gradient 5.86 mmHg MV mean gradient 3 mmHg Wall Motion: Segment Name Rest Base-Anteroseptal Akinetic Base-Anterior Normal Base-Anterolateral Normal Base-Posterolateral Normal Base-Inferior Akinetic Base-Inferoseptal Akinetic Mid-Anteroseptal Akinetic Mid-Anterior Normal Mid-Anterolateral Normal Mid-Posterolateral Normal Mid-Inferior Akinetic Mid-Inferoseptal Akinetic Latexo-Septal Akinetic Latexo-Anterior Hypokinetic Latexo-Lateral Normal Latexo-Inferior Akinetic Latexo-Tip Hypokinetic This report has been electronically sign ed by: _ Leonel Miller MD 12/30/2019 14:36:44 Images reviewed and interpretation verif ied [facility] Cardiac Ultrasound Laboratory Joni Drew MD ECHO ORDERABLES Performing Organization Address City/State/ZIP Code Phon e Number [facility] documented in this encounter Visit Diagnoses Diagnosis Cardiomyopathy, unspecified type documented in this encounter Administered Medications Inactive Administered Medications - up to 3 most recent administrations Medication Order MAR Action Action Date Dose Rate Site perflutren protein-A microspheres Given 12/30/2019 1:00 PM EDT 2 mLs (OPTISON) 0.22 mg/mL injection 0.5 mL 0.5 mL, Intravenous, ONCE PRN, 1 dose, Starting on Sun12/30/19 at 1421, Until Sun12/30/19 at 1300, for enhancement of sub-optimal echo images, Echo Lab (Intra-Procedure), Routine documented in this encounter Care Teams Cro Relationship Specialty Start Date End Date Albert Zuleta MD PCP - General Family Medicine 01/17/17 10/26/21 [address] [place] [id number] documented as of this encounter
--- OUTSIDE RECORDS SUMMARY | 2022-02-08 01:50 | XMS_ITS | Encounter Summary ---
:1960 Author Organization [facility] [place] [address] Care Team Providers Name Role Phone Albert Zuleta MD Primary Care Provider Encounter Details Date Type Department Care Team Description 11/02/2020 Abstract Weight and Wellness at Kasie Marcano [facility] DR Porsha Mohr [facility] [place] [address] [place] [address] [phone] (Wo rk) Social History Tobacco Use Types [...] Description 03/15/2022 Office Visit Neurology Ryann Barfield, [employer]F TE[employer] [facility] [address] [place], [place] [address] 03/23/2022 Appointment Radiology Hailey Mcclendon MD [facility] [address] [place] [address] 03/23/2022 Laboratory Appointment Lab 03/23/2022 Office Visit Gastroenterology Hailey Mcclendon MD [facility] [address] [place] [address] 05/23/2022 Procedure visit Maxillofacial Surgery Corby Montes MD [facility] [address] [place] [address] documented as of this encounter Goals [...] consider eating biggest troy l mid day, 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 Restart Protien shakes using Unsweete mariam Patrick Milk 4. Consider Meal replacements such as Le na Cuisine or Healthy Choice (read label to reach 20 grams of protein) 5. Keep hard boiled eggs on hand 6. Aim for reducing fruit intake to 2 se rvings/day 1. Consider Investigating Deepka Stephanie 'What are you hungry for? 2. Restart Protien shakes using Unsweete mariam Patrick Milk 3. When you feel well enough, boil a doz en hard boiled eggs Other (Enter personal goal) Lifestyle No Shaila Duffy RD Note: Formatting of this note might be d ifferent from the original. Nutrition Goals: 1. Consider Investigating Deepka Stephanie 'What are you hungry for? 2. Restart Protien shakes using Unsweete mariam Patrick Milk 3. When you feel well enough, boil a doz en hard boiled eggs documented as of this encounter Visit Diagnoses Not on filedocumented in this encounter Care Teams Hand Spinner Relationship Specialty Start Date End Date Albert Zuleta MD PCP - General Family Medicine 01/17/17 10/26/21 [place] [address] documented as of this encounter
--- OUTSIDE RECORDS SUMMARY | 2022-02-08 01:50 | XMS_ITS | Encounter Summary ---
:1960 Author Organization [facility] [place] [address] Care Team Providers Name Role Phone Albert Zuleta MD Primary Care Provider Encounter Details Date Type Department Care Team Description 12/28/2020 Office Visit [facility] [facility] Alexandru Akers Recurrent [facility] nephrolithiasis [facility] [address] NEPHROLOGY DEPT. [phone] [place] [id number] Social History Tobacco Use Types Packs/Day Years [...] documented as of this encounter Progress Notes Alexandru Akers MD - 12/28/2020 4:30 PM EDT 60 y/o woman for follow up of a mixed calcium oxalate and phosphate nephrolithiasis Not seen by me as discussed with the team as the patient has no new laboratory data Medications: Current Outpatient Medications: ??? HYDROcodone-acetaminophen 5-325 mg [...] BY MOUTH DAILY, Disp: , Rfl: 3 Allergies Allergen Reactions ??? Ketamine Other (See Comments) Hallucinations ??? Anafranil [Clomipramine] Other (See Comments) give me the flu ??? Augmentin [Amoxicillin-Pot Clavulanate] Hives and Itching ??? Erythromycin Hives and Itching ??? Macrobid [Nitrofurantoin Monohyd/M-Cryst] Other (See Comments) Causes depression ??? Sulfa (Sulfonamide Antibiotics) Hives Physical exam: Vitals 12/28/2020 BP 132/56 BP Location Pulse 70 Temp Resp Height (Paraguayan) Height (Metric) Weight (Paraguayan) 321 lbs Weight (Metric) 145.605 kg BMI (Calculated) Pulse Oximetry FiO2 (%) O2 Flow Rate (L/min) O2 Device BSA Labs: A/P: documented in this encounter Plan of Treatment Upcoming Encounters Date Type Specialty Care Team Description 03/15/2022 Office Visit Neurology Ryann Barfield APRN [facility] [address] [place] [address] 03/23/2022 Appointment Radiology Hailey Mcclendon MD [facility] [place] [address] 03/23/2022 Laboratory Appointment Lab 03/23/2022 Office Visit Gastroenterology Hailey Mcclendon MD [facility] [place] [address] 05/23/2022 Procedure visit Maxillofacial Surgery Corby Montes MD [facility] [address] [place] [address] documented as of this encounter [...] consider eating biggest troy l mid day, dairy technologist dinner, try not to eat after dinner-try [...] track (08/26/2020 9:43 AM EST) No Iman Macrano APRN Note: Formatting of this note might [...] or 1 c up Low fat plain [place]orese Yogurt or 3 eggs or 3 ounces of meat 3. Restart Protien shakes using Unsweete mariam [place] Milk 4. Consider Meal replacements such as Le na Cuisine or Healthy Choice (read label to reach 20 grams of protein) 5. Keep hard boiled eggs on hand 6. Aim for reducing fruit intake to 2 se rvings/day 1. Consider Investigating Deepka Stephanie 'What are you hungry for? 2. Restart Protien shakes using Unsweete mariam [place] Milk 3. When you feel well enough, boil a doz en hard boiled eggs Other (Enter personal goal) Lifestyle No Shaila Duffy I, AKSHAT Note: Formatting of this note might be d ifferent from the original. Nutrition Goals: 1. Consider Investigating Salena Brown 'What are you hungry for? 2. Restart Protien shakes using Unsweete mariam [place] Milk 3. When you feel well enough, boil a doz en hard boiled eggs documented as of this encounter Visit Diagnoses Diagnosis Recurrent nephrolithiasis Calculus of kidney documented in this encounter Care Teams Surveying Or Spatial Science Technician Relationship Specialty Start Date End Date Albert Zuleta MD PCP - General Family Medicine 01/17/17 10/26/21 [address] [place] [address] documented as of this encounter
--- OUTSIDE RECORDS SUMMARY | 2022-02-08 01:50 | XMS_ITS | Encounter Summary ---
:1960 Author Organization [facility] [place] [address] Care Team Providers Name Role Phone Albert Zuleta MD Primary Care Provider Encounter Details Date Type Department Care Team Description 08/27/2020 TH Visit Weight and Wellness Shaila Duffy Class 3 severe obesity (TeleHealth) at [facility] AKSHAT Kennedy with serious [address] comorbidity and body [place], [place] ) [place] [address] 50.0 to 59.9 in adult, unspecified obe sity type Social History Tobacco Use Types Packs/Day Years [...] as of this encounter Patient Instructions Patient InstructionsShaila Duffy RD - 08/27/2020 2:30 PM EST Goals ??? meal timing/food choices Try tracking using my fitnesspal or notebook Use your date book to keep track of things you need to do to improve your health. ?? Meal timing: consider eating biggest meal mid day, boom master dinner, try not to eat after dinner-try to stay within an 8-10 hour eating window- try to work on some consistency with meals to help avoidnight eating ?? will have formal RD visit to work on individualized dietary plan to address eating behaviors and timing/frequency of meals. ?? Limit/avoid candy ?? Work on limiting portion sizes ?? Decrease processed food in favor of more whole foods -try adding some vegetables to meals ?? Goal 64 ounce of water daily. ??? movement ?? Try just getting up at least once an hour ?? Recommend resistance training 3 times a week -can use your weights- 08/26/20- not on track with this, will work on it. ??? Nutrition Nutrition Goals: 1. Aim for ~ 20-25 grams of protein/meal 2. 1 cup fat free cottage cheese, or 1 cup Low fat plain Azerbaij[place] Yogurt or 3 eggs or 3 ounces of meat 3. Restart Protien shakes using Unsweetened [place] Milk 4. Consider Meal replacements such as Krista Cuisine or Healthy Choice (read label to reach 20 grams of protein) 5. Keep hard boiled eggs on hand 6. Aim for reducing fruit intake to 2 servings/day ??? sleep ?? Try to be consistent with sleep. Goal 7 hours of sleep nightly. ?? Recommend consistent sleep and wake times, avoid electronics within one hour of sleep time ?? Continue C pap ??? stress ?? Mindfulness/deep breathing practice to reduce cortisol -try for at least 10 minutes a day ?? Continue counseling documented in this encounter Progress Notes Shaila Duffy RD - 08/27/2020 2:30 PM EST Nutrition Intervention for Weight Management Initial RD visit with BARBARA Alba 1960 Assessment/Nutrition Diagnosis: Pt at increased nutritional risk related to excessive calorie intakeand sub optimal physical activity resulting in overweight/obesity as evidenced by BMI and diet recall Telehealth / telephone visit conducted while patient was at home at the following address: [address] [place] [address] [facility] [address] Food Trackers: not at this time Activity: none at this time Weight Today: Vitals 08/26/2020 Height (Arabic) 65.984 Height (Metric) 167.6 cm Weight (Arabic) 316 lbs Weight (Metric) 143.337 kg BMI (Calculated) 51.02 kg/m2 Weight Loss History:Has been successful multiple times losing large amounts of weight Typical Dietary Intake: B: 5 am small banana and apple and coffee with flavored creamer L: 1 pm 2 hot dogs with buns and 1 cup potato salad (feels like lunch does not digest well) S: afternoon nap D: 5-6 pm fruit or potato salad S: 11:45 pm (night time eating - 4 Big Bowls of cereal) has been a very bad sleeper since childhood will eat in the middle of the night d/t pain S: 2-4 am if awake with pain will eat again Typical Beverages: 1 cup coffee with flavored creamer and 3 Quarts water/daily Patient Goals from Team: Goals ??? meal timing/food choices Try tracking using my fitnesspal or notebook Use your date book to keep track of things you need to do to improve your health. ?? Meal timing: consider eating biggest meal mid day, boom master dinner, try not to eat after dinner-try to stay within an 8-10 hour eating window- try to work on some consistency with meals to help avoidnight eating ?? will have formal RD visit to work on individualized dietary plan to address eating behaviors and timing/frequency of meals. ?? Limit/avoid candy ?? Work on limiting portion sizes ?? Decrease processed food in favor of more whole foods -try adding some vegetables to meals ?? Goal 64 ounce of water daily. ??? movement ?? Try just getting up at least once an hour ?? Recommend resistance training 3 times a week -can use your weights- 08/26/20- not on track with this, will work on it. ??? sleep ?? Try to be consistent with sleep. Goal 7 hours of sleep nightly. ?? Recommend consistent sleep and wake times, avoid electronics within one hour of sleep time ?? Continue C pap ??? stress ?? Mindfulness/deep breathing practice to reduce cortisol -try for at least 10 minutes a day ?? Continue counseling Interview: Sakshi's reports she has always felt deprived. Relates this to feeling all her life has had deprivation. If you had a paez salad in front of you then I would feel deprived until I could haveone as well. Sakshi is really discouraged by counting carbohydrate. Pt has chronic pain since 1997 and has been disabled since 2001. Takes prescription medication. Sakshi does not feel she has ever felt real hunger. One time over the past month she did feel hunger from. LOVES fruit - can have 4-5 pieces/day. Barriers to Change: Sleep disorders Chronic Pain Nutrition Goals: 1. Aim for ~ 20-25 grams of protein/meal 2. 1 cup fat free cottage cheese, or 1 cup Low fat plain Azerbaijani Yogurt or 3 eggs or 3 ounces of meat 3. Restart Protien shakes using Unsweetened [place] Milk 4. Consider Meal replacements such as Krista Cuisine or Healthy Choice (read label to reach 20 grams of protein) 5. Keep hard boiled eggs on hand 6. Aim for reducing fruit intake to 2 servings/day Assessing Calorie Goals at this time? Aim for 1,300 -1,500 calories for weight list Monitor/Evaluate: Will follow up in 2 months Aim for 5-10% weight loss from ABW x 3-6 months from initial visit Thank you Shaila Duffy MS RD LD 60 minutes were spent today in contact with the patient Britt Nogueira CMA - 08/27/2020 2:30 PM EST Please send sample meal plans and protein handout Thank you Shaila The above has been mailed to the pt. Britt Nogueira CMA documented in this encounter Plan of Treatment Upcoming Encounters Date Type Specialty Care Team Description 03/15/2022 Office Visit Neurology Ryann Barfield APRN [facility] [address] [place], [place] [address] 03/23/2022 Appointment Radiology Hailey Mcclendon MD [facility] [address] [place] [address] 03/23/2022 Laboratory Appointment Lab 03/23/2022 Office Visit Gastroenterology Hailey Mcclendon MD [facility] [address] [place] [address] 05/23/2022 Procedure visit Maxillofacial Surgery Corby Montes MD [facility] [address] [place] [address] documented as of this encounter [...] consider eating biggest troy l mid day, boom master dinner, try not to eat after dinner-try [...] track (08/26/2020 9:40 AM EST) Iman Hannon, WALLPAPER HANGER HELPER Note: Formatting of this note might be d ifferent from the original. Try just getting up at least once an luda r Recommend resistance training 3 times a week -can use your weights- 08/26/20- not on track with this, will work on it. sleep Lifestyle On track (08/26/2020 9:43 AM EST) Iman Hannon, WALLPAPER HANGER HELPER Note: Formatting of this note might [...] or 1 c up Low fat plain Azerbaijani Yogurt or 3 eggs or 3 ounces of meat 3. Restart Protien shakes using Unsweete mariam [place] Milk 4. Consider Meal replacements such as Le na Cuisine or Healthy Choice (read label to reach 20 grams of protein) 5. Keep hard boiled eggs on hand 6. Aim for reducing fruit intake to 2 se rvings/day 1. Consider Investigating Deepka Stephanie 'What are you hungry for? 2. Restart Protien shakes using Unsweete mariam [place] Milk 3. When you feel well enough, boil a doz en hard boiled eggs documented as of this encounter Visit Diagnoses Diagnosis Class 3 severe obesity with serious matilda rbidity and body mass index (BMI) of 50.0 to 59.9 in adult, unspecified obesity type documented in this encounter Care Teams Electrician'S Assistant Relationship Specialty Start Date End Date Albert Zuleta MD PCP - General Family Medicine 01/17/17 10/26/[address] [address] [place] [address] documented as of this encounter
--- OUTSIDE RECORDS SUMMARY | 2022-02-08 01:50 | XMS_ITS | Encounter Summary ---
:1960 Author Organization [facility] [place] [address] Care Team Providers Name Role Phone Albert Zuleta MD Primary Care Provider Encounter Details Date Type Department Care Team Description 12/28/2020 [place] En[place] [facility] [place] Meghana Galvin Nephrolith[place] [facility] [place] [address] UROLOGY DEPT. [phone] [place], [place] [address] Social History Tobacco Use Types [...] 03/15/2022 Office Visit Neurology Ryann Barfield, [facility] NEUR[facility]Y [place] [address] 03/23/2022 Appointment Radiology Hailey Mcclendon MD [facility] [place] [address] 03/23/2022 Laboratory Appointment Lab 03/23/2022 Office Visit Gastroenterology Hailey Mcclendon MD [facility] [place] [address] 05/23/2022 Procedure visit Maxillofacial Surgery Corby Montes MD [facility] [address] [place] [address] documented as of this encounter Goals Goal Patient Goal Associated Recent Patient-Stated? Author Type Problems Progress meal Lifestyle Not on track No Jeet, timing/food (08/26/2020 ilda Solitario 9:40 AM EST) SOLAR SALES REP Note: Formatting of this note might be d ifferent from the original. Try tracking using my fitnesspal or note book Use your date book to keep track of thin gs you need to do to improve your health. Meal timing: consider eating biggest troy l mid day, electrogalvanizing machine operator dinner, try not to eat [...] or 1 c up Low fat plain [place] Yogurt or 3 eggs or 3 ounces of meat 3. Restart Protien shakes using Unsweete mariam [place] Milk 4. Consider Meal replacements such as Le na Cuisine or Healthy Choice (read label to reach 20 grams of protein) 5. Keep hard boiled eggs on hand 6. Aim for reducing fruit intake to 2 se rvings/day 1. Consider Investigating Deepka Stephanie 'What are you hungry for? 2. Restart Protien shakes using Unsweete mariam [place] Milk 3. When you feel well enough, boil a doz en hard boiled eggs Other (Enter personal goal) Lifestyle No Shaila Duffy I, RD Note: Formatting of this note might be d ifferent from the original. Nutrition Goals: 1. Consider Investigating Deepka Stephanie 'What are you hungry for? 2. Restart Protien shakes using Unsweete mariam [place] Milk 3. When you feel well enough, boil a doz en hard boiled eggs documented as of this encounter Procedures Procedure Name Priority Date/Time Associated Diagnosis Comme nts US RETROPERITONEAL Routine 12/28/2020 2:49 Nephrolithiasis Res ults for this COMPLETE PM EDT procedure are i n the results section. documented in this encounter Results US Retroperitoneal Complete (12/28/2020 2:49 PM EDT) Anatomical Region Laterality Modality Abdomen Ultrasound Specimen (Source) Anatomical Collection Method Collection Time Re ceived Time Location / / Volume Laterality 12/28/2020 2:33 PM EDT Impressions 12/28/2020 3:07 PM EDT Nonobstructing 7 mm left lower pole beverley culus, new from 12/2019. No hydronephrosis. Normal RIGHT kidney, the calculus seen on the patient's CT from 10/18/2020 is not seen Hepatic steatosis I have personally reviewed the image(s) and the resident's interpretation and agree with the findings, Miller Slaughter at 12/28/2020 3:01 PM Thank you for letting us participate in the care of this patient. ??If you are a health care provider and have any quest ions regarding this report, please contact the number below. ??For patient s who have questions please contact the health health care administrator that requested your imaging first. Thank you for letting us participate in the care of this patient. If you are a health care provid er and have any questions regarding this report, please contact the number below. For patients who have ques tions, please contact the [facility] care professio nal that requested your imaging first. ? Nikki Rodriguez, Staff Physician Electronically Signed Final Report ?? 03:07 pm Narrative 12/28/2020 3:07 PM EDT Renal ? (Signed Final 12/28/2020 03:07 pm) PATIENT INFO: ID #: ? [id number] ?: ??[birth year] (60 yrs)(F) Name: ? BLOSSOM Ray ? Visit Date: 12/28/2020 02:33 pm ? TARA PERFORMED BY: Performed By: ? Dani Villalobos RDMS Attending: ?Michael RUIZ, Nikki Cortez Resident: ? Oracio RUIZ, John Aguilar Referred By: ?MEGHANA Bhatt [facility] Location: ? [place] SERVICE(S) PROVIDED: URETRO - Retroperitoneal Complete - IM 3517 ? [id number] INDICATIONS: ? new stone formation COMPARISON: Ultrasound: Renal / Bladder 12/30/19 RIGHT KIDNEY: Size (cm) ?L: ??13.0 Cortical Thickness: ?Normal Cortical Echogenicity: ?? Normal Hydronephrosis: ?No sonogr aphic evidence Comment: ?No renal calculi or cysts visualized. LEFT KIDNEY: Size (cm) ?L: ??13.9 Cortical Thickness: ?Normal Cortical Echogenicity: ?? Normal Hydronephrosis: ?No sonogr aphic evidence Comment: ?Single non-obstructing ca lclus seen in the inferior ? pole measuring 7mm. URINARY BLADDER: Pre-void (cm) ? L: ??5.1 ? A P: ??8.3 ? TV: ??8.0 Vol (ml): ?177.3 Comment: ?Partially distended, norm al contour Procedure Note Nikki Rodriguez MD - 12/28/2020Formattin g of this note might be different from the original. Renal (Signed Final 12/28/2020 03:07 pm ) PATIENT INFO: ID #: [id number] : [birth year] (60 y rs)(F) Name: BLOSSOM Ray Visit Date: 12/28/2020 02:33 pm TARA PERFORMED BY: Performed By: Agata Villalobos RDMS Attending: Nikki Rodriguez MD Resident: John Narayanan MD Referred By: MEGHANA GALVIN JR Location: [place] SERVICE(S) PROVIDED: URETRO - Retroperitoneal Complete - [facility] [id number] INDICATIONS: ? new stone formation COMPARISON: Ultrasound: Renal / Bladder 12/30/19 RIGHT KIDNEY: Size (cm) L: 13.0 Cortical Thickness: Normal Cortical Echogenicity: Normal Hydronephrosis: No sonographic evidence Comment: No renal calculi or cysts visu alized. LEFT KIDNEY: Size (cm) L: 13.9 Cortical Thickness: Normal Cortical Echogenicity: Normal Hydronephrosis: No sonographic evidence Comment: Single non-obstructing calclus seen in the inferior pole measuring 7mm. URINARY BLADDER: Pre-void (cm) L: 5.1 AP: 8.3 TV: 8.0 Vol (ml): 177.3 Comment: Partially distended, normal co ntour IMPRESSION Nonobstructing 7 mm left lower pole beverley culus, new from 12/2019. No hydronephrosis. Normal RIGHT kidney, the calculus seen on the patient's CT from 10/18/2020 is not seen Hepatic steatosis I have personally reviewed the image(s) and the resident's interpretation and agree with the findings, Miller Slaughter at 12/28/2020 3:01 PM Thank you for letting us participate in the care of this patient. If you are a health care provider and have any quest ions regarding this report, please contact the number below. For patients who have questions please contact the health health care administrator that requested your imaging first. Thank you for letting us participate in the care of this patient. If you are a health care located within [facility] and have any questions regarding this report, please contact the number below. For patients who have ques tions, please contact the health care professio nal that requested your imaging first. Nikki Rodriguez, Staff Physician Electronically Signed Final Report 12/28 03:07 pm Meghana Galvin Jr., MD [facility] GEN ORDERABLES documented in this encounter Visit Diagnoses Diagnosis Nephrolithiasis Calculus of kidney documented in this encounter Care Teams Customer Trainer Relationship Specialty Start Date End Date Albert Zuleta MD PCP - General Family Medicine 01/17/17 10/26/21 [place] [address] documented as of this encounter
--- OUTSIDE RECORDS SUMMARY | 2022-02-08 01:50 | XMS_ITS | Encounter Summary ---
:1960 Author Organization [facility] [place] [address] Care Team Providers Name Role Phone Albert Zuleta MD Primary Care Provider Encounter Details Date Type Department Care Team Description 04/27/2020 Telephone General Surgery at [facility] [place] [address] Social History Tobacco Use Types Packs/Day [...] this encounter Miscellaneous Notes Telephone Encounter - Stacey Washington - 04/27/2020 10:05 AM EDTSummary: Bariatric Surgery Chart Status Left message for Blossom to give us a call so that we can go over her enrollment forms as we are missing the start weight form and once received we can get her chart started and mail her insurance information. documented in this encounter Plan of Treatment Upcoming Encounters Date Type Specialty Care Team Description 03/15/2022 Office Visit Neurology Ryann Barfield APRN [facility] [address] [place], [place] [address] 03/23/2022 Appointment Radiology Hailey Mcclendon MD [facility] [place] [address] 03/23/2022 Laboratory Appointment Lab 03/23/2022 Office Visit Gastroenterology Hailey Mcclendon MD [facility] [place] [address] 05/23/2022 Procedure visit Maxillofacial Surgery Corby Montes MD [facility] [address] [place] [address] documented as of this encounter Visit Diagnoses Not on filedocumented in this encounter Care Teams All Terrain Vehicle Racer Relationship Specialty Start Date End Date Albert Zuleta MD PCP - General Family Medicine 01/17/17 10/26/21 [place] [address] documented as of this encounter
--- OUTSIDE RECORDS SUMMARY | 2022-02-08 01:50 | XMS_ITS | Encounter Summary ---
:1960 Author Organization [facility] Address [facility] [place] [address] Care Team Providers Name Role Phone Albert Zuleta MD Primary Care Provider Encounter Details Date Type Department Care Team Description 02/16/[address] [facility] Galvin Jr., [place] [facility] [place] [address] UROLOGY DEPT. [phone] [place], [place] [address] (Wo rk) Social History Tobacco [...] this encounter Miscellaneous Notes Telephone Encounter - George Child - 02/16/2020 11:16 AM EDT PHONE: [phone] LYNETTE Menjivar Pt had Positive urine dip today - had positive culture back in December and pt feels it hasn't really gotten better. They wonder how she should be treated - I suggested that we usually wait till the urine culture is complete but will page a resident to call Janet at the # above . They evidently called earlier but have not heard back yet . documented in this encounter Plan of Treatment Upcoming Encounters Date Type Specialty Care Team Description 03/15/2022 Office Visit Neurology Ryann Barfield APRN [facility] [address] [place], [place] [address] 03/23/2022 Appointment Radiology Hailey Mcclendon MD [facility] [address] [place] [address] 03/23/2022 Laboratory Appointment Lab 03/23/2022 Office Visit Gastroenterology Hailey Mcclendon MD [facility] [address] [place] [address] 05/23/2022 Procedure visit Maxillofacial Surgery Corby Montes MD [facility] [place] [address] documented as of this encounter Visit Diagnoses Not on filedocumented in this encounter Care Teams Integrity Director Relationship Specialty Start Date End Date Albert Zuleta MD PCP - General Family Medicine 01/17/17 10/26/21 [place] [address] documented as of this encounter
--- OUTSIDE RECORDS SUMMARY | 2022-02-08 01:50 | XMS_ITS | Encounter Summary ---
:1960 Author Organization [place] [address] Care Team Providers Name Role Phone Albert Zuleta MD Primary Care Provider Encounter Details Date Type Department Care Team Description 08/27/2020 Telephone Weight and Wellness at [facility] Agata Rich [address] [place] [address] Social History Tobacco Use Types Packs/Day Years [...] Notes Telephone Encounter - Agata Rich - 08/27/2020 3:42 PM EST Patient placed upon [facility] wait list. JK documented in this encounter Plan of Treatment Upcoming Encounters Date Type Specialty Care Team Description 03/15/2022 Office Visit Neurology Ryann Barfield APRN [facility] [place] [address] 03/23/2022 Appointment Radiology Hailey Mcclendon MD [facility] [address] [place] [address] 03/23/2022 Laboratory Appointment Lab 03/23/2022 Office Visit Gastroenterology Hailey Mcclendon MD [facility] [address] [place] [address] 05/23/2022 Procedure visit Maxillofacial Surgery Corby Montes MD [facility] [address] [place] [address] documented as of this encounter Goals Goal Patient Goal Associated Recent Patient-Stated? Author Type Problems Progress meal Lifestyle Not on track Sandra Marcano, timing/food (08/26/2020 ilda Solitario 9:40 AM EST) BANANA CARRIER Note: Formatting of this note might be d ifferent from the original. Try tracking using my fitnesspal or note book Use your date book to keep track of thin gs you need to do to improve your health. Meal timing: consider eating biggest troy l mid day, campus aide dinner, try not to eat after dinner-try [...] track (08/26/2020 9:40 AM EST) Iman Hannon, BANANA CARRIER Note: Formatting of this note might be [...] or 1 c up Low fat plain Bahamian Yogurt or 3 eggs or 3 ounces of meat 3. Restart Protien shakes using Unsweete mariam August[place] Milk 4. Consider Meal replacements such as Le na Cuisine or Healthy Choice (read label to reach 20 grams of protein) 5. Keep hard boiled eggs on hand 6. Aim for reducing fruit intake to 2 se rvings/day 1. Consider Investigating Deepka Stephanie 'What are you hungry for? 2. Restart Protien shakes using Unsweete mariam [place] Milk 3. When you feel well enough, boil a doz en hard boiled eggs documented as of this encounter Visit Diagnoses Not on filedocumented in this encounter Care Teams Park Activities Coordinator Relationship Specialty Start Date End Date Albert Zuleta MD PCP - General Family Medicine 01/17/17 10/26/21 [address] [place] [id number] documented as of this encounter
--- OUTSIDE RECORDS SUMMARY | 2022-02-08 01:50 | XMS_ITS | Encounter Summary ---
:1960 Author Organization [facility] Address [address] [place] [address] Care Team Providers Name Role Phone Albert Zuleta MD Primary Care Provider Encounter Details Date Type Department Care Team Description 09/24/2020 TH Visit Weight and Wellness Shaila Duffy Class 3 severe obesity (TeleHealth) at [facility] [address] I, RD with serious [address] comorbidity and body [place], [place] (BMI ) [place] [address] 50.0 to 59.9 in adult, unspecified obe [...] Sign Reading Time Taken Comments Blood Pressure - - Pulse - - Temperature - - Respiratory Rate - - Oxygen Saturation - - Inhaled Oxygen Concentration - - Weight 145.2 kg (320 lb) 09/24/2020 11:48 AM EST Height 167.6 cm (5' 5.98) 09/24/2020 11:48 AM EST Body Mass Index 51.67 09/24/2020 11:48 AM EST documented in this encounter Patient Instructions Patient InstructionsClive Shaila Brent, RD - 09/24/2020 11:00 AM EST Goals ??? meal timing/food choices Try tracking using my fitnesspal or notebook Use your date book to keep track of things you need to do to improve your health. ?? Meal timing: consider eating biggest meal mid day, industrial gas service helper dinner, try not to eat after dinner-try [...] cheese, or 1 cup Low fat plain Tunisian Yogurt or 3 eggs or 3 ounces of meat 3. Restart Protien shakes using Unsweetened [place] Milk 4. Consider Meal replacements such as Krista Cuisine or Healthy Choice (read label to reach 20 grams of protein) 5. Keep hard boiled eggs on hand 6. Aim for reducing fruit intake to 2 servings/day 1. Consider Investigating Deepka Stephanei 'What are you hungry for? 2. Restart Protien shakes using Unsweetened [place] Milk 3. When you feel well enough, boil a dozen hard boiled eggs ??? Other (Enter personal goal) Nutrition Goals: 1. Consider Investigating Deepka Stephanie 'What are you hungry for? 2. Restart Protien shakes using Unsweetened [place] Milk 3. When you feel well enough, boil a dozen hard boiled eggs ??? sleep ?? Try to be consistent [...] encounter Progress Notes Shaila Duffy RD - 09/24/2020 11:00 AM EST Nutrition Intervention for Weight Management RD visit Assessment/Nutrition Diagnosis: Pt at increased nutritional risk related to excessive calorie intakeand sub optimal physical activity resulting in overweight/obesity as evidenced by BMI and diet recall Telehealth / telephone visit conducted while patient was at home at the following address: [address] [place] [id number] Food Trackers: not at this time; Weight Today: Vitals 09/24/2020 Height (Tuvaluan) 65.984 Height (Metric) 167.6 cm Weight (Tuvaluan) 320 lbs Weight (Metric) 145.151 kg BMI (Calculated) 51.67 kg/m2 Typical Dietary Intake: B:Has salad this morning with shredded cheese and dominican cold cuts and [place]me[place] L: D: 2 wraps with chicken salad vogt and lettuce (this was the only thing she had yesterday) S: Typical Beverages: water and 1 coffee/day Previous Nutrition Goals: Goals ??? meal timing/food choices Try tracking using my fitnesspal or notebook Use your date book to keep track of things you need to do to improve your health. ?? Meal timing: consider eating biggest meal mid day, industrial gas service helper dinner, try not to eat after dinner-try [...] cheese, or 1 cup Low fat plain Tunisian Yogurt or 3 eggs or 3 ounces of meat 3. Restart Protien shakes using Unsweetened [place] Milk 4. Consider Meal replacements such as Krista Cuisine or Healthy Choice (read label to reach 20 grams of protein) 5. Keep hard boiled eggs on hand 6. Aim for reducing fruit intake to 2 servings/day 1. Consider Investigating Deepka Stephanie 'What are you hungry for? 2. Restart Protien shakes using Unsweetened [place] Milk 3. When you feel well enough, boil a dozen hard boiled eggs ??? Other (Enter personal goal) Nutrition Goals: 1. Consider Investigating Deepka Stephanie 'What are you hungry for? 2. Restart Protien shakes using Unsweetened [place] Milk 3. When you feel well enough, boil a dozen hard boiled eggs ??? sleep ?? Try to be consistent with sleep. Goal 7 hours of sleep nightly. ?? Recommend consistent sleep and wake times, avoid electronics within one hour of sleep time ?? Continue C pap ??? stress ?? Mindfulness/deep breathing practice to reduce cortisol -try for at least 10 minutes a day ?? Continue counseling Nutrition Goals: 1. Aim for ~ 20-25 grams of protein/meal - 1 cup fat free cottage cheese, or 1 cup Low fat plain Tunisian Yogurt or 3 eggs or 3 ounces of meat sometime yes; sometimes no 2. Restart Protien shakes using Unsweetened [place] Milk - has not started this at this time 3. Consider Meal replacements such as Krista Cuisine or Healthy Choice (read label to reach 20 grams of protein) - has tried them but is bothered by the sodium content 4. Keep hard boiled eggs on hand 6. Aim for reducing fruit intake to 2 servings/day has reduced some but not down to 2 I have a realhard time giving up fruit ?? Interview: Pt was waiting on Zoom for appointment but Zoom did not work. Called pt. A few minutes inKatie received another medical call she had to take. Called her back. Sakshi has not been feeling well at all and this week has been especially bad has only eaten cereal and done zero cookie. Has salad this morning with shredded cheese and dominican cold cuts and balaji. Is reading End Emotional Eating and thinks its a bunch of crock is not enjoying the hearts especially.Does appreciate the concept between to willingness and willfulness however mostly the books makes her angry; too many references. Sakshi is having a very difficult time standing to cook. Sakshi feels deprived by having to eat less fruit because she is feeling restricted. Sakshi gave up candy on . Has recentlty started take Novolog at each meal. I may not have candy but I can eat the world away in food. Does see a therapist however has so many other things to talk about that she does not use the time for ruminating over food. Sakshi feels overeating in general is keeping her sugars so high and she would like to get her sugars lower. Sakshi reports if I don't get what I want then I feel intensely deprived and shereports constant thoughts of food. Sakshi does feel losing weight would not necessarily make her happy as she is aware so many things in life can keep her down and her weight is a reflection of those things. Sakshi would like to discuss medications to reduce ruminating thoughts. Barriers to Change: Willingness to make change consistently as feelings of deprivation override Nutrition Goals: 1. Consider Investigating Deepka Stephanie 'What are you hungry for? 2. Restart Protien shakes using Unsweetened [place] Milk 3. When you feel well enough, boil a dozen hard boiled eggs Monitor/Evaluate: Will follow up in 2 months Aim for 5-10% weight loss from ABW x 3-6 months from initial visit Thank you Shaila Duffy MS, RD LD 30 minutes were spent today in contact with the patient documented in this encounter Plan of Treatment Upcoming Encounters Date Type Specialty Care Team Description 03/15/2022 Office Visit Neurology Ryann Barfield, SEPARATING MACHINE OPERATOR [facility] [address] [place], [place] [address] 03/23/2022 Appointment Radiology Hailey Mcclendon MD [facility] [address] [place] [address] 03/23/2022 Laboratory Appointment Lab 03/23/2022 Office Visit Gastroenterology Hailey Mcclendon MD [facility] [address] [place] [address] 05/23/2022 Procedure visit Maxillofacial Surgery Corby Montes MD [facility] [address] [place] [address] documented as of this encounter Goals [...] consider eating biggest troy l mid day, industrial gas service helper dinner, try not to eat after dinner-try [...] or 1 c up Low fat plain Tunisian Yogurt or 3 eggs or 3 ounces of meat 3. Restart Protien shakes using Unsweete mariam [place] Milk 4. Consider Meal replacements such as Le na Cuisine or Healthy Choice (read label to reach 20 grams of protein) 5. Keep hard boiled eggs on hand 6. Aim for reducing fruit intake to 2 se rvings/day 1. Consider Investigating Deepka Stephanie 'What are you hungry for? 2. Restart Protien shakes using Unsweete mariam [place] Milk 3. When you feel well enough, boil a doz en hard boiled eggs Other (Enter personal goal) Lifestyle No Shaila Duffy RD Note: Formatting of this note might be d ifferent from the original. Nutrition Goals: 1. Consider Investigating Deepka Stephanie 'What are you hungry for? 2. Restart Protien shakes using Unsweete mariam [place] Milk 3. When you feel well enough, boil a doz en hard boiled eggs documented as of this encounter Visit Diagnoses Diagnosis Class 3 severe obesity with serious matilda rbidity and body mass index (BMI) of 50.0 to 59.9 in adult, unspecified obesity type documented in this encounter Care Teams Sonography Technician Relationship Specialty Start Date End Date Albert Zuleta MD PCP - General Family Medicine 01/17/17 10/26/21 [address] [place] [id number] documented as of this encounter
--- OUTSIDE RECORDS SUMMARY | 2022-02-08 01:50 | XMS_ITS | Encounter Summary ---
:1960 Author Organization [facility] Address [facility] [place] [address] Care Team Providers Name Role Phone Albert Zuleta MD Primary Care Provider Encounter Details Date Type Department Care Team Description 03/30/[address] [facility] [place] Galvin Jr., MD [facility] [place] [phone] UR[address]Y DEPT. [phone] [place], [place] [address] (Wo rk) Social History Tobacco [...] this encounter Miscellaneous Notes Telephone Encounter - Garcia Barnard RN - 03/30/2020 1:27 PM EDT Contacted Sakshi and informed her that Cefpodoxime in the appropriate medication that she was prescribed and should complete dose as written. She is in agreement with the current plan Telephone Encounter - George Child - 03/30/2020 8:08 AM EDT PHONE: [phone] Pt calls as she was in touch with someone here over the weekend regarding her urine culture that [facility]. She was put on an Abx (cefpodoxime) 200 mg BID x 7 days by a local provider. She wants to make sure that she is on the correct medication. documented in this encounter Plan of Treatment Upcoming Encounters Date Type Specialty Care Team Description 03/15/2022 Office Visit Neurology Ryann Barfield APRN [facility] [address] [place] [address] 03/23/2022 Appointment Radiology Hailey Mcclendon MD [facility] [address] [place] [address] 03/23/2022 Laboratory Appointment Lab 03/23/2022 Office Visit Gastroenterology Hailey Mcclendon MD [facility] [address] [place] [address] 05/23/2022 Procedure visit Maxillofacial Surgery Corby Montes MD [facility] [address] [place] [address] documented as of this encounter Visit Diagnoses Not on filedocumented in this encounter Care Teams Candy Butcher Relationship Specialty Start Date End Date Albert Zuleta MD PCP - General Family Medicine 01/17/17 10/26/[address] [place] [address] documented as of this encounter
--- OUTSIDE RECORDS SUMMARY | 2022-02-08 01:50 | XMS_ITS | Encounter Summary ---
:1960 [place] [address] Care Team Providers Name Role Phone Albert Zuleta MD Primary Care Provider Encounter Details Date Type Department Care Team Description 11/18/2020 Surgery Main Operating Room Meghana Galvin Jr., Abelardo MAHONEY, FULGURATION OF [facility] BLADDER LESION, W [facility] W/O BX, 0.5 TO 2.0CM [facility] (WRVU 4.62) [facility] ([place], [place]) [place] [address] [place] [address] [phone] (Wo rk) Social History Tobacco Use Types [...] Sign Reading Time Taken Comments Blood Pressure 147/72 11/18/2020 9:28 AM EDT Pulse 75 11/18/2020 9:28 AM EDT Temperature 36.3 ??C (97.3 ??F) 11/18/2020 9:28 AM EDT Respiratory Rate 18 11/18/2020 9:28 AM EDT Oxygen Saturation 98% 11/18/2020 9:28 AM EDT Inhaled Oxygen Concentration - - Weight 143.3 kg (316 lb) 11/18/2020 6:39 AM EDT Height 167.6 cm (5' 6) 11/18/2020 6:39 AM EDT Body Mass Index 51 11/18/2020 6:39 AM EDT documented in this encounter Discharge Instructions Patient InstructionsKiarra Bhatt MD - 11/18/2020 7:06 AM EDT Department of Urologic Surgery Discharge Instructions Today you had cystoscopy, retrograde pyelography, and bladder biopsy. Pain: - You may take acetaminophen (Tylenol) up to 1000mg every 6 hours and/or ibuprofen (Motrin, Advil, or generic) up to 600mg every 8 hours - We recommend alternating acetaminophen and ibuprofen so that you are taking one every 3 hours. Forexample, tylenol at 12pm, ibuprofen 3pm, tylenol 6pm, ibuprofen 9pm, etc. - Do not exceed 4000mg acetaminophen in 24 hours. Do not exceed 3200mg ibuprofen in 24 hours. - You have been prescribed pyridium. Please take this three times per day for a maximum of three days (more than this can cause liver toxicity). This helps with burning and will turn your urine orange. Activity level: You may notice blood in your urine following this procedure. This is normal. If noticing dark red blood with clots in it or you are unable to empty your bladder over a period of 8 hoursplease notify Urology. Diet: You may resume your regular diet as tolerated. Driving: No driving if you are still sore from surgery as it may limit your ability to react quicklyif necessary. Shower/Bath: No restrictions. Follow up Appointments: You will receive a phone call with the results of your pathology once this is available. Next steps will be guided by these results. An appointment will be made for a visit in ~6 weeks. Call your doctor for: ??? fevers greater than 101.3 ??? severe nausea or vomiting ??? increasing pain not controlled by pain medications ??? Dark red urine output with clots in it or unable to urinate over 8 hours. Who to call? If you have concerns or questions: - During the day, it is best to call the Urology Clinic to speak with the Urology nurses. The number is [phone]. The clinic is open from 8-5 M-F. - For urgent/emergent issues during the night or weekends call the [facility] textile cutting machine operator at [phone] and ask to speak to the urology resident manager contract. If your issue is not urgent, please call during the day as there will be more staff available to help you. documented in this encounter Medications at Time of Discharge Medication Sig Dispensed Refills Start Date End Date clotrimazole-betamethas Apply topically. 0 2020 one (LOTRISONE) 1-0.05 % Cream tiotropium (Spiriva) 18 Inhale 1 capsule into [...] 03/09/2018 (PRINIVIL;ZESTRIL) 5 mg MOUTH DAILY Tablet insulin aspart U-100 Inject 15 Units 0 10/13/2020 12/28/2020 (NovoLOG) Insulin Pen subcutaneously. phenazopyridine Take 1 tablet by mouth 9 tablet 0 11/19/19 21 11/21/2020 (Pyridium) 200 mg 3 times daily as Tablet needed for Pain for up to 3 days. HYDROcodone-acetaminoph Take 1 tablet by mouth 0 [...] DAY Device documented as of this encounter H&P Notes Stephen Fernandez MD - 11/18/2020 7:05 AM EDT Patient Name: Blossom Samayoa Patient Age: 59 y.o. Birthdate: 1960 Admit date: 11/18/2020 Attending Physician: Meghana Galvin Jr., MD Blossom Samayoa is a 59 y.o. female presenting to pre-op holding for scheduled diagnostic cystoscopy, possible biopsy, bilateral retrograde pyelograms. Indications: Hematuria high risk group with bilateral non-obstructing calyceal renal stones (largestapproximately 8 mm left lower pole and 2 each 5 to 6 mm in the right kidney). Reports groin rash, applied antifungal cream. Otherwise no change to medical history since last visit on 11/15/2020. Gen: NAD CV: RRR P: CTAB Kidney function Lab Results Component Value Date/Time BUN 15 (External Lab) 03/12/2020 12:00 AM CREATININE 0.85 (External Lab) 03/12/2020 12:00 AM CrCl cannot be calculated (Patient's most recent lab result is older than the maximum 30 days allowed.). Last 5 urine cultures: Lab Results Component Value Date URINECULTURE (A) 12/30/2019 10,000-49,000 cfu/ml mixed mucosal rasta 1,000-9,000 cfu/ml Gram Negative organisms Note: Culture shows multiple bacterial species suggesting mucosal contamination. If symptoms continue to indicate urinary tract infection, submit a new specimen. URINECULTURE (A) 07/01/2019 50,000-99,000 cfu/ml Escherichia coli 1,000-9,000 cfu/ml mixed mucosal rasta URINECULTURE No growth (Less than 1,000 cfu/ml). 02/19/2019 URINECULTURE No growth (Less than 1,000 cfu/ml). 01/05/2019 URINECULTURE (A) 11/19/2018 50,000-99,000 cfu/ml Keira albicans 10,000-49,000 cfu/ml mixed Gram Negative organisms All risks, benefits and alternatives have been explained, patient wishes to proceed with scheduled procedure. Consent is signed, site marking N/A. Prophylactic antibiotics ordered: 2gm cefazolin, 400mg iv fluconazole. documented in this encounter Miscellaneous Notes Brief Op Note - Meghana Galvin Jr., MD - 11/18/2020 9:10 AM EDT Brief Operative Note Patient Name: Blossom Samayoa : [id number] MR#: [id number] Case Date: 11/18/2020 Surgeon: Surgeon(s) and Role: * Meghana Galvin Jr., MD - Primary * Stephen Fernandez MD - Resident * Kiarra Bhatt MD - Resident Preoperative diagnosis: hematuria, urolithiasis Postoperative diagnosis: same Procedure(s) (LRB): CYSTO, FULGURATION OF BLADDER LESION, W OR W/O BX, 0.5 TO 2.0CM (WRVU 4.62) (N/A) CYSTO, RETROGRADE, URETEROPYELOGRAPHY (WRVU 2.37) (Bilateral) FLUOROSCOPY (WRVU 0.17) (N/A) Anesthesia: General Findings: Urine in bladder concentrated but not grossly bloody. No identified intravesical bleeding or tumors. Erythematous regions on trigone and posterior wall biopsied and fulgurated. Clear yellow urine effluxed from both ureteral orifices. No ureteral filling defects bilaterally. Retrograde pyelogram otherwise notable for right upper pole infundibular narrowing, but no evident filling defects in renal pelvis or calces bilaterally Complications: none evident Intake: Intraprocedure Crystalloid Total None Transfusion No data found in the last 1 encounters. Output: Estimated Blood Loss: 3ml Drains: none Specimens removed during surgery: bladder biopsy (right postero-lateral wall), bladder biopsy of midtrigone, urine for culture Disposition: awakened from anesthesia, extubated and taken to the recovery room in a stable condition, having suffered no apparent untoward event. Condition: doing well without problems Attestation: Case Date: 11/18/2020 I was present and I participated during the entire procedure. (Please see the Surgical Encounter Summary for any Implant and Specimen details pertinent to this patient.) Op Note - Meghana Galvin Jr., MD - 11/18/2020 8:11 AM EDT [facility] Operative Note Patient Name: Blossom Samayoa : [id number] MR#: [id number] Case Date: 11/18/2020 Surgeon: Surgeon(s) and Role: * Meghana Galvin Jr., MD - Primary * Stephen Fernandez MD - Resident * Kiarra Bhatt MD - Resident Preoperative diagnosis: hematuria, urolithiasis Postoperative diagnosis: same Procedure(s) (LRB): CYSTO, FULGURATION OF BLADDER LESION, W OR W/O BX, 0.5 TO 2.0CM (WRVU 4.62) (N/A) CYSTO, RETROGRADE, URETEROPYELOGRAPHY (WRVU 2.37) (Bilateral) FLUOROSCOPY (WRVU 0.17) (N/A) Anesthesia: General Findings: Urine in bladder concentrated but not grossly bloody. No identified intravesical bleeding or tumors. Erythematous regions on trigone and posterior wall biopsied and fulgurated. Clear yellow urine effluxed from both ureteral orifices. No ureteral filling defects bilaterally. Retrograde pyelogram otherwise notable for right upper pole infundibular narrowing, but no evident filling defects in renal pelvis or calces bilaterally Complications: none evident Intake: Intraprocedure Crystalloid Total None Transfusion No data found in the last 1 encounters. Output: Estimated Blood Loss: 3ml Drains: none Specimens removed during surgery: bladder biopsy (right postero-lateral wall), bladder biopsy of midtrigone, urine for culture Disposition: awakened from anesthesia, extubated and taken to the recovery room in a stable condition, having suffered no apparent untoward event. Condition: doing well without problems Attestation: Case Date: 11/18/2020 I was present and I participated during the entire procedure. (Please see the Surgical Encounter Summary for any Implant and Specimen details pertinent to this patient.) HPI/Surgical Indications: Blossom Samayoa is a 59 y.o. female presenting for diagnostic cystoscopy, possible biopsy, bilateral retrograde pyelograms. ?? Indications: Hematuria high risk group with bilateral non-obstructing calyceal renal stones (largestapproximately 8 mm left lower pole and 2 each 5 to 6 mm in the right kidney). Informed consent reviewed and confirmed Procedure Description: Blossom Samayoa was seen preoperatively. Consent was confirmed/obtained, and she was transported to the operating room. She was positioned supine on the operating room table and anesthesia was introduced. She was carefully placed in the dorsal lithotomy position and prepped and draped in the usual fashion. A 22fr cystoscope was advanced into the bladder. Urine was concentrated in appearance but not frankly bloody. It was collected and sent for routine culture. The bladder was fully inspected with both 30and 70 degree lenses. No evident intravesical bleeding was identified. No polyps, tumors, or papillary changes were seen. Erythematous regions were noted on a 1cm region of right posterolateral wall and a small region mid trigone. These were biopsied and the bases were fulgurated. We confirmed hemostasis had been achieved. Clear yellow urine was repeatedly confirmed to drain from both ureteral orifices, which were of normal size, shape, and position. Marine Radio Installer And Servicer fluoroscopy revealed no evident calcifications overlying either ureter The right ureteral orifice was gently intubated with a Mcgraw-tip catheter and retrograde pyelogramwas performed, which demonstrated no ureteral filling defects. No renal pelvis or calyceal filling defects were noted. A moderately narrowed upper pole infundibulum was appreciated with mild dilation of the upper pole calyx. There was brisk efflux of contrast and ureteral emptying was confirmed. Attention was then turned to the left. The left ureteral orifice was gently intubated with a Mcgraw-tip catheter and retrograde pyelogram was performed, which demonstrated no ureteral filling defects.No renal pelvis or calyceal filling defects were noted. There was brisk efflux of contrast and ureteral emptying was confirmed. Final inspection confirmed hemostasis throughout the bladder including the fulgurated biopsy sites. The bladder was emptied. Blossom Samayoa was awakened and taken to the recovery room in stable condition. Attestation: Case Date: 11/18/2020 I was present and I participated during the entire procedure. MEGHANA GALVIN JR, MD 11/18/2020 documented in this encounter Plan of Treatment Upcoming Encounters Date Type Specialty Care Team Description 03/15/2022 Office Visit Neurology Ryann Barfield APRN [facility] [place], [place] [address] 03/23/2022 Appointment Radiology Hailey Mcclendon MD [facility] [address] [place] [address] 03/23/2022 Laboratory Appointment Lab 03/23/2022 Office Visit Gastroenterology Hailey Mcclendon MD [facility] [address] [place] [address] 05/23/2022 Procedure visit Maxillofacial Surgery Corby Montes MD [facility] [address] [place] [address] documented as of this encounter Goals Goal Patient Goal Associated Recent Patient-Stated? Author Type Problems Progress meal Lifestyle Not on track Sandra Marcano, timing/food (08/26/2020 ilda Solitario 9:40 AM EST) LITHOGRAPHIC PRESS OPERATOR Note: Formatting of this note might be d ifferent from the original. Try tracking using my fitnesspal or note book Use your date book to keep track of thin gs you need to do to improve your health. Meal timing: consider eating biggest troy l mid day, small equipment operator dinner, try not to eat after [...] track (08/26/2020 9:40 AM EST) Iman Hannon, LITHOGRAPHIC PRESS OPERATOR Note: Formatting of this note might [...] or 1 c up Low fat plain Ivorian Yogurt or 3 eggs or 3 ounces of meat 3. Restart Protien shakes using Unsweete mariam [place] Milk 4. Consider Meal replacements such as Le na Cuisine or Healthy Choice (read label to reach 20 grams of protein) 5. Keep hard boiled eggs on hand 6. Aim for reducing fruit intake to 2 se rvings/day 1. Consider Investigating Deepka Stephanie 'What are you hungry for? 2. Restart Protien shakes using Unsweete mariam [place] Milk 3. When you feel well enough, boil a doz en hard boiled eggs Other (Enter personal goal) Lifestyle No Shaila Duffy RD Note: Formatting of this note might be d ifferent from the original. Nutrition Goals: 1. Consider Investigating Deepka Stephanie 'What are you hungry for? 2. Restart Protien shakes using Unsweete mariam [place] Milk 3. When you feel well enough, boil a doz en hard boiled eggs documented as of this encounter Procedures Procedure Name Priority Date/Time Associated Comments Diagnosis XR FLUORO NO RAD <1HR - OR Routine 11/18/2020 9:14 Results for this USE AM EDT procedure are i n the results section. SPECIMEN TO PATHOLOGY Routine 11/18/2020 9:03 Res ults for this AM EDT procedure are i n the results section. HC URINE CULTURE Routine 11/18/2020 8:56 Results for this AM EDT procedure are i n the results section. SPECIMEN TO PATHOLOGY Routine 11/18/2020 8:55 Res ults for this AM EDT procedure are i n the results section. SURGICAL PATHOLOGY REPORT Routine 11/18/2020 8:53 Results for this AM EDT procedure are i n the results section. POCT GLUCOSE Routine 11/18/2020 8:44 Results for this AM EDT procedure are i n the results section. FLUOROSCOPY (WRVU 0.17) Yes 11/18/2020 7:31 stone? AM EDT CYSTO, RETROGRADE, Yes 11/18/2020 7:31 stone? URETEROPYELOGRAPHY (WRVU AM EDT 2.37) CYSTO, FULGURATION OF Yes 11/18/2020 7:31 stone? BLADDER LESION, W OR W/O AM EDT BX, 0.5 TO 2.0CM (WRVU 4.62) POCT GLUCOSE Routine 11/18/2020 6:36 Results for this AM EDT procedure are i n the results section. documented in this encounter Results XR Fluoro No Rad <1Hr - OR Use (11/18/2020 9:14 AM EDT) Specimen (Source) Anatomical Location Collection Method / Collectio n Time Received Time / Laterality Volume Narrative RAD - 11/18/2020 9:14 AM EDT This exam is auto-finalizing. No interpr etation was done. Meghana Galvin Jr., MD IMG FLUORO ORDERABLES Performing Organization Address [facility] Phon e Number [place], [place] Specimen to Pathology (11/18/2020 9:03 AM EDT) Specimen Anatomical Collection Method Collection Time Receive d Time (Source) Location / / Volume Laterality AP Specimen 11/18/2020 9:03 AM 9:03 EDT AM EDT Narrative [facility] - 11/18/2020 9:03 AM EDT Specimen requisition ordered. ??Separate Pathology report to follow Meghana Galvin Jr., MD PATHOLOGY/CYTOLOGY ORDERABLE S Performing Organization Address City/[facility]/[place] [address] (ABNORMAL) Urine culture Cystoscopic Urine (11/18/2020 8:56 AM EDT) [facility] Method Time Signature Urine Culture 1,000-9,000 HAILEY ANDERSON cfu/ml Gram [facility] Negative [facility] (A) LABORATORY Organism Gram [facility] Negative [facility] (A) HOSPITAL LABORATORY Specimen Anatomical Collection Method Collection Time Receive d Time (Source) Location / / Volume Laterality Urine specimen 11/18/2020 8:56 AM 021 9:54 (specimen) EDT AM EDT Comment: URINE FOR CULTURE Resulting Agency Comment Spec In Lab Meghana Galvin Jr., MD MICROBIOLOGY - GENERAL ORDER ELINA Performing Organization Address City/State/[place] [address] Specimen to Pathology (11/18/2020 8:55 AM EDT) Specimen Anatomical Collection Method Collection Time Receive d Time (Source) Location / / Volume Laterality AP Specimen 11/18/2020 8:55 AM 8:55 EDT AM EDT Narrative [facility] - 11/18/2020 8:55 AM EDT Specimen requisition ordered. ??Separate Pathology report to follow Meghana Galvin Jr., MD PATHOLOGY/CYTOLOGY ORDERABLE S Performing Organization Address City/State/[place] [address] Surgical Pathology Report (11/18/2020 8:53 AM EDT) Component Value Ref Test Analysis Performed At [facility] Method Time Signature Surgical [id number] ? Location: [facility]; [facility]; A [facility] Report The signing pathologist has (i) examined the relevant preparation(s) for the [facility] specimen(s) and (ii) rendered or confirmed the diagnosis(es) . HOSPITAL LABORATORY . ?Surgic al Pathology DIAGNOSIS A - Bladder tumor (biopsy): ??- Mild urothelial atypia, favor reactive changes in the s etting ?of acute and chronic cystitis. ??- Follicular cystitis. ??- Muscularis propria is present and free of tumor. B - Bladder tumor, trigone (biopsy): ??- Mild urothelial atypia, favor reactive changes in the s etting ?of acute and chronic cystitis. ??- Follicular cystitis. ??- Muscularis propria is not present. Electronically signed by: ?Bernardino RUIZ, Agata Ray Verified: ??11/24/2020 16:44 ??Pathologist Performed at: ??-[facility] Dept. of Pathology, [place], [place] ADDITIONAL STUDIES Deeper levels were examined on parts A and B. SPECIMEN(S) SUBMITTED A - Bladder tumor, biopsy B - Bladder tumor trigone, biopsy CLINICAL INFORMATION Stone? SPECIMEN PROCESSING A - Labeled/Fixative: Bladder tumor, fresh. Quantity/Size: Three, 0.4-0.5 cm. Tissue Description: Soft, red-white tissues. Sections/Processing: Submitted en toto in 1 cassette labeled A1. B - Labeled/Fixative: Bladder tumor trigone, fresh. Quantity/Size: Single, 0.4 cm. Tissue Description: Soft, red tissue. Sections/Processing: Submitted en toto in 1 cassette labeled B1. ??francisco j Specimen (Source) Anatomical Collection Method Collection Time Re ceived Time Location / / Volume Laterality 11/18/2020 8:53 AM EDT Meghana Galvin Jr., MD PATHOLOGY/CYTOLOGY ORDERABLE S Performing Organization Address City/State/ZIP Code Phon e Number [facility] [address] (ABNORMAL) POCT Glucose (11/18/2020 8:44 AM EDT) P athologist Signature POC Glucose 244 (H) 65 - 199 [facility] mg/dL [facility] Comment: Supplemental ranges: <140 mg/dL before meals <180 mg/dL all other times of the day Specimen Anatomical Collection Method Collection Time Receive d Time (Source) Location / / Volume Laterality Blood specimen 11/18/2020 8:44 AM 021 8:44 (specimen) EDT AM EDT Meghana Galvin Jr., MD POINT OF CARE TEST ORDERABLE S Performing Organization Address City/State/[place] [address] (ABNORMAL) POCT Glucose (11/18/2020 6:36 AM EDT) athologist Signature POC Glucose 305 (H) 65 - 199 [facility] mg/dL [facility] Comment: Supplemental ranges: <140 mg/dL before meals <180 mg/dL all other times of the day Specimen Anatomical Collection Method Collection Time Receive d Time (Source) Location / / Volume Laterality Blood specimen 11/18/2020 6:36 AM 021 6:36 (specimen) EDT AM EDT Meghana Galvin Jr., MD POINT OF CARE TEST ORDERABLE S Performing Organization Address City/State/[place] [address] documented in this encounter Visit Diagnoses Not on filedocumented in this encounter Administered Medications Inactive Administered Medications - up to 3 most recent administrations Medication Order MAR Action Action Date Dose Rate Site acetaminophen (Tylenol) tablet Given 11/18/2020 9:36 AM EDT 1,00 0 mg 1,000 mg 1,000 mg, Oral, EVERY 4 HOURS PRN, Starting on Arin 11/18/20 at 0932, Until Arin 11/18/20 at 1339, Pain, Maximum dose of acetaminophen is 4000 mg from all sources in 24 hours. When ordered for pain, acetaminophen should be given even when other ordered pain medications are indicated. , Routine iohexoL (Omnipaque) (300 Given 11/18/2020 9:00 AM EDT 50 mLs 19- Surgical Site mg/mL) injection solution ONCE PRN, Starting on Arin 11/18/20 at 0900, Until Arin 11/18/20 at 1339, Intra-Operative (Intra-Procedure), Routine documented in this encounter Active and Recently Administered Medications Times are shown in EDT. Scheduled Medication Order 11/16/2020 11/17/2020 11/18/2020 ceFAZolin (Ancef) 2 g in dextrose 5% 100 mL infusion (COMPLETED) 0748 (Given - Provider: Vicente Gamble CRNA) 2 g, Intravenous, DIESEL LOCOMOTIVE CRANE OPERATOR TO O.R., 1 dos e, Arin 11/18/20 at 0000, Administer over 30 Minutes, Indication for (Active or Suspected): Prophylaxis fluconazole (Diflucan) 400 mg in sodium chloride 0.9% 200 mL infusion (COMPLETED) 0752 (Given - Provid er: Vicente Gamble CRNA) 400 mg, Intravenous, DIESEL LOCOMOTIVE CRANE OPERATOR TO O.R., 1 dose, Arin 11/18/20 at 0730, Administer over 120 Minutes, Indication for (Active or Suspected): Prophylaxis, Restricted Antibiotic: Please indicate the most appropr iate choice: Pre-approved Indication (State the indication in Co mments field) PRN Medication Order 11/16/2020 11/17/2020 11/18/2020 acetaminophen (Tylenol) tablet 1,000 mg 0936 (Given - Provider: Lisseth Moura RN) 1,000 mg, Oral, EVERY 4 HOURS PRN, Start ing Arin 11/18/20 at 0932, Until Arin 11/18/20 at 1339, Pain, Maximum dose of acetaminophen is 4000 mg from all sources in 24 hours. When ordered for pain, acetaminop hen should be given even when other orde red pain medications are indicated. , Routine iohexoL (Omnipaque) (300 mg/mL) injection solution (CANCELED) 0900 (Given - Provider: Meghana Galvin Jr., MD - Comment: Used as needed throughout case) ONCE PRN, Starting Arin 11/18/20 at 0900, Until Arin 11/18/20 at 1339, Intra- Operative (Intra-Procedure), Routine documented in this encounter Care Teams Prison Psychiatrist Relationship Specialty Start Date End Date Albert Zuleta MD PCP - General Family Medicine 01/17/17 10/26/21 [address] [place] [phone] documented as of this encounter
--- OUTSIDE RECORDS SUMMARY | 2022-02-08 01:50 | XMS_ITS | Encounter Summary ---
:1960 Author Organization [facility] [place] [address] Care Team Providers Name Role Phone Albert Zuleta MD Primary Care Provider Encounter Details Date Type Department Care Team Description 02/16/2020 Telephone Urology Angelina Vazquez MD [facility] [place] [address] UROLOGY DEPT [phone] [place], [place] [address] (Wo rk) Social History Tobacco [...] this encounter Miscellaneous Notes Telephone Encounter - Angelina Vazquez MD - 02/16/2020 12:35 PM EDT PHONE: [phone] LYNETTE Menjivar Returned call from Janet. Per report, joe received 7-day Keflex from 01/11. She reported improvement of UTI symptoms while on Keflex but now have recurrent symptoms. Unclear if this is recurrent UTI vs persistent UTI vs new onset UTI with another organism. I advised Janet to wait on the culture data and sensitivity profile before prescribing another course of 7-day antibiotics. All questions answered. She can call back with any further questions. documented in this encounter Plan of Treatment Upcoming Encounters Date Type Specialty Care Team Description 03/15/2022 Office Visit Neurology Ryann Barfield, [facility] [address] [place], [place] [address] 03/23/2022 Appointment Radiology Hailey Mcclendon MD [facility] [address] [place] [address] 03/23/2022 Laboratory Appointment Lab 03/23/2022 Office Visit Gastroenterology Hailey Mcclendon MD [facility] [address] [place] [address] 05/23/2022 Procedure visit Maxillofacial Surgery Corby Montes MD [facility] [address] [place] [address] documented as of this encounter Visit Diagnoses Not on filedocumented in this encounter Care Teams Rack Room Worker Relationship Specialty Start Date End Date Albert Zuleta MD PCP - General Family Medicine 01/17/17 10/26/[address] [place] [address] documented as of this encounter
--- OUTSIDE RECORDS SUMMARY | 2022-02-08 01:50 | XMS_ITS | Encounter Summary ---
:1960 Author Organization [facility] [place] [address] Care Team Providers Name Role Phone Albert Zuleta MD Primary Care Provider Reason for Visit Reason Comments Follow-up weight management Encounter Details Date Type Department Care Team Description 08/26/2020 TH Visit Weight and Wellness Iman Marcano L, Amy s 3 severe obesity with serious comorbidity and body mass index (BMI) of 50.0 to 59.9 in adult, unspecified obesity type; (TeleHealth) at [facility] LAST DIPPER Depression, unspecified depression type; [address] [facility] Type 2 diabetes mellitus wit h hyperglycemia, without long-term current use of insulin [facility] [address] [facility] [address]-[facility] [phone] [place], [place] [address] Social History Tobacco Use Types [...] - Inhaled Oxygen Concentration - - Weight 143.3 kg (316 lb) 08/26/2020 9:00 AM EST Height 167.6 cm (5' 5.98) 08/26/2020 9:00 AM EST Body Mass Index 51.03 08/26/2020 9:00 AM EST documented in this encounter Patient Instructions Patient InstructionsIman Marcano, LAST DIPPER - 08/26/2020 9:00 AM EST From our visit today: You will work on doing your weights, tracking, and get the book end emotional eating Let me know if you need anything. Iman Alexander Addressed This Visit's Progress ??? meal timing/food choices Not on track Try tracking using my fitnesspal or notebook Use your date book to keep track of things you need to do to improve your health. ?? Meal timing: consider eating biggest meal mid day, plant controls specialist dinner, try not to eat after dinner-try [...] 64 ounce of water daily. ??? movement On track ?? Try just getting up at least once an hour ?? Recommend resistance training 3 times a week -can use your weights- 08/26/20- not on track with this, will work on it. ??? sleep On track ?? Try to be consistent with sleep. Goal 7 hours of sleep nightly. ?? Recommend consistent sleep and wake times, avoid electronics within one hour of sleep time ?? Continue C pap ??? stress On track ?? Mindfulness/deep breathing practice to reduce cortisol -try for at least 10 minutes a day ?? Continue counseling Medications 08/26/20 0939 Medication Sig Taking? metFORMIN (Glucophage) 500 mg Tablet Take 500 mg by mouth daily. insulin glargine,hum.rec.anlog (BASAGLAR KWIKPEN U-100 INSULIN SUBQ) Inject 56 Units subcutaneously nightly. multivitamin (THERAGRAN) Tablet Take 1 tablet by mouth daily. carvediloL (Coreg) 25 mg Tablet Take 12.5 mg by mouth 2 times daily (with meals). Take one half tablet by mouth two times daily. Trulicity 1.5 mg/0.5 mL Pen Injector amitriptyline (Elavil) 50 mg Tablet Take 50 mg by mouth nightly. lactobacillus acidophilus & bulgar 1 million cell Tablet, Chewable CHEW ONE TABLET BY MOUTH EVERY DAY ibuprofen (Advil;Motrin) 600 mg Tablet Take 1 tablet by mouth every 6 hours as needed for Pain. acetaminophen (TYLENOL) 500 mg Tablet Take 1,000 mg by mouth every 6 hours as needed for Pain. cholestyramine (QUESTRAN) 4 gram Powder Take by mouth 2 times daily (with meals). acyclovir (ZOVIRAX) 5 % Ointment Apply 1 each topically every 3 hours. valACYclovir (VALTREX) 1 gram Tablet TAKE ONE TABLET BY MOUTH EVERY DAY NEEDED nitroGLYcerin (NITROSTAT) 0.4 mg Tablet, Sublingual Place 0.4 mg under the tongue every 5 minutes asneeded for Chest pain. diclofenac (VOLTAREN) 1 % Gel Apply topically 4 times daily as needed. atorvastatin (LIPITOR) 10 mg Tablet Take 10 mg by mouth daily. dulaglutide (TRULICITY SUBQ) Inject subcutaneously once a week. HYDROcodone-acetaminophen (NORCO) 5-325 mg Tablet Take 1 tablet by mouth 2 times daily. Mostly takesat night for sleep aspirin 81 mg Tablet, Chewable Take 81 mg by mouth daily. levalbuterol (XOPENEX HFA) 45 mcg/actuation HFA Aerosol Inhaler INHALE TWO PUFFS BY MOUTH EVERY 4 TO6 HOURS NEEDED INCRUSE ELLIPTA 62.5 mcg/actuation Disk with Device INHALE ONE PUFF BY MOUTH EVERY DAY loratadine (CLARITIN) 10 mg Tablet TAKE ONE TABLET BY MOUTH EVERY DAY NEEDED gabapentin (NEURONTIN) 600 mg Tablet TAKE ONE TABLET BY MOUTH THREE TIMES A DAY spironolactone (ALDACTONE) 25 mg Tablet TAKE ONE TABLET BY MOUTH EVERY DAY lisinopril (PRINIVIL;ZESTRIL) 5 mg Tablet TAKE ONE TABLET BY MOUTH DAILY documented in this encounter Progress Notes Iman Marcano APRN - 08/26/2020 9:00 AM EST D-[facility] Visit Patient provided verbal consent prior to initiation of this telemedicine encounter and expressed understanding that the telemedicine visit may be billed similar to a clinic visit, pt was seen while in [facility] I spent a total of 15 minutes in discussion / counseling related to pathophysiology and treatment ofobesity, nutrition and physical activity as well as obesity related co-morbidities Patient Name: Blossom Samayoa Date of : 1960 Age: [address] Albert Zuleta MD / CHIEF COMPLAINT: Follow-up for Obesity SUMMARY OF VISIT AND RECOMMENDATIONS: Blossom Samayoa is currently being treated with Metformin, trulicity (diabetes) for obesity. Blossom Samayoa was seen in follow up today for ongoing management, and an updated medical, diet and activity review was completed. She joined a diabetes support group with her local hospital and she is working on meal planning and prep with her. She is learning about healthier eating. She understands that food is an addiction for her and she has a lot of insight into that (I have recommended counseling, ACT) for her to help around this. Recommend reading end emotional eating by Yuni Mcdaniel. We reviewed medications for weight loss but given all of her other problems there are not really safe options at this point. Our goal is to improve diet, improve blood glucose and possible reduce insulin. She is having a hard time feeling motivated to do much of anything. She does enjoy meeting with her therapist. She likes being home and not doing much. She was declined for bariatric surgery due to immobility and multiple previous surgeries with complications, she anticipated that so is ok and understands. Her diabetic dietitian has offered to go grocery shopping with her and I recommend she take advantage of that. She has been checking her blood sugars each morning. The range is in the mid 200s to low 200s, (which is an improvement from the 500s for her) she does still tend to eat a lot of carbs/potatoes and knows that drives her blood sugar up. She is still tired, likely related to chronically high blood sugar. She is planning to see Shaila and George this week. She will talk to them about possibly doing classes. She will work on adding some strength, will track and will get the book. Assessment and Plan: Obesity Starting Weight: 316 Today's weight: 316 Last 5 weight values: Wt Readings from Last 5 Encounters: 08/26/20 (!) 143.3 kg (316 lb) 08/04/20 (!) 142.4 kg (314 lb) 07/29/20 (!) 143.7 kg (316 lb 14.4 oz) 09/25/19 135.2 kg (298 lb) 08/13/19 131 kg (288 lb 14.4 oz) Goals Addressed This Visit's Progress ??? meal timing/food choices Not on track Try tracking using my fitnesspal or notebook Use your date book to keep track of things you need to do to improve your health. ?? Meal timing: consider eating biggest meal mid day, plant controls specialist dinner, try not to eat after dinner-try [...] 64 ounce of water daily. ??? movement On track ?? Try just getting up at least once an hour ?? Recommend resistance training 3 times a week -can use your weights- 08/26/20- not on track with this, will work on it. ??? sleep On track ?? Try to be consistent with sleep. Goal 7 hours of sleep nightly. ?? Recommend consistent sleep and wake times, avoid electronics within one hour of sleep time ?? Continue C pap ??? stress On track ?? Mindfulness/deep breathing practice to reduce cortisol -try for at least 10 minutes a day ?? Continue counseling INTERVAL HISTORY / PROGRESS TOWARD GOALS: [x] I reviewed past / interim records including notes and labs [facility] Followup Responses 07/22/2020 URICA - Readiness Score 8 (Pre-contemplation State) WEL-SF Total Scores Incomplete PHQ-2 SubScore 5 (Full PHQ-9 indicated) GAD2 Subscore 2 (Brief screen negative) PROMIS 10 Physical Scores 23.5 PROMIS 10 Mental Scores 33.8 Total REAP-S Scores 25 TFEQ - Uncontrolled Eating (UE) 55.55 TFEQ-Cognitive Restraint (CR) -11.11 TFEQ-Emotional Eating 55.55 Food Insecurity Score 4 Worried food would run out before we got money to buy more Sometimes true Food didnt last; no money to get more Sometimes true Patient started on new medications: no New medical conditions: no Recent Hospitalizations: no Daily eating Patterns: Doesn't hardly ever feel hungry just eats. 24 hour Diet Recall: Breakfast: apple and balaji, coffee with creamer OR great grains cereal (3 servings) balaji Snack: none Lunch: 2 servings of potato salad and 2 servings of tater tots (felt really full) Snack: none Dinner: potato salad, balaji (not hungry) Snacks: Often gets up at midnight and eats, had 1/2 cup of milk to settle her stomach Drinks: water, at least 64 oz a day, some milk, coffee Alcohol : none What Letter Grade (A-F) Patient gave self for following behavior change: Stopping Eating after dinner: F Decreasing Processed foods: D-has a hard time cooking so doing more and more processed food 150 minutes of weekly Movement: F Resistance training 2 days a week: F Taking Medications consistently: A Consistent bedtimes: B/C Sleepin-6 hours, with C pap- sleeps better she takes vicodin but doesn't sleep much though in bed for many hours (in bed sometimes at 7pm) Daily stress reduction: has been working with her therapist and she doesn't remember to do it Since you were last seen at [facility], are you having any of the following; new changes are bolded: REVIEW OF SYSTEMS: see above HPI for additional pertinent +/- findings Constitutional: Appetite, Tired during the day. HEENT: Visual changes. Dry mouth. Change in taste CV: Chest pain or discomfort, palpitations. Increased blood pressure or pulse. Feeling short of breath when lying flat RESP: Shortness of breath at rest, cough, wheezing. Shortness of breath with exercise GI: Nausea, vomiting, diarrhea, constipation, abdominal pain : Pain with urination, blood in urine, kidney stones impotence Musculoskeletal: joint swelling, joint pain Integumentary: Rash or skin breakdown. Bruising. Psychiatric: Anxiety, depression, thoughts of hurting yourself or someone else. Psychosis Neurological: Headaches, dizziness, tingling arms/legs, restlessness, insomnia, tremor VITAL SIGNS: Ht 167.6 cm (5' 5.98) Wt (!) 143.3 kg (316 lb) LMP (LMP Unknown) BMI 51.03 kg/m?? PHYSICAL EXAM: Gen: Blossom Samayoa is a pleasant engaged, appropriate, 59 year old female who appears stated age, NAD. Neuro: Alert and oriented Psych: NL affect today, engaged in the visit I spent a total of 20 minutes with the patient 15 minutes of which were spent in wknw-in-iwax discussion/counseling re obesity, nutrition and activity as well as obesity related co-morbidities. Treatment options were discussed including intensive lifestyle intervention, pharmacotherapy with risks and advantages outlined for each. documented in this encounter Plan of Treatment Upcoming Encounters Date Type Specialty Care Team Description 03/15/2022 Office Visit Neurology Ryann Barfield APRN [facility] [address] [place] [address] 03/23/2022 Appointment Radiology Hailey Mcclendon MD [facility] [place] [address] 03/23/2022 Laboratory Appointment Lab 03/23/2022 Office Visit Gastroenterology Hailey Mcclendon MD [facility] [place] [address] 05/23/2022 Procedure visit Maxillofacial Surgery Corby Montes MD [facility] [address] [place], [place] [address] documented as of this encounter [...] consider eating biggest troy l mid day, plant controls specialist dinner, try not to eat after dinner-try [...] (08/26/2020 9:40 AM EST) No Iman Marcano, LAST DIPPER Note: Formatting of this note might be [...] least 10 minutes a day Continue counseling documented as of this encounter Visit Diagnoses Diagnosis Class 3 severe obesity with serious matilda rbidity and body mass index (BMI) of 50.0 to 59.9 in adult, unspecified obesity type Depression, unspecified depression type Type 2 diabetes mellitus with hyperglyce anabelle, without long-term current use of insulin documented in this encounter Care Teams Food Science Technician Relationship Specialty Start Date End Date Albert Zuleta MD PCP - General Family Medicine 01/17/17 10/26/21 [address] [place] [address] documented as of this encounter
--- OUTSIDE RECORDS SUMMARY | 2022-02-08 01:50 | XMS_ITS | Encounter Summary ---
:1960 Author Organization [facility] [place] [address] Care Team Providers Name Role Phone Albert Zuleta MD Primary Care Provider Encounter Details Date Type Department Care Team Description 10/18/2020 TH Visit Weight and Wellness Yash-George Lopez Class 3 obesity with (TeleHealth) at [facility] alveolar [address], [place] serious comorbi dity, [id number] and body mass index [phone] (BMI) of 50.0 t o 59.9 in adult Social History Tobacco Use Types Packs/Day Years [...] as of this encounter Patient Instructions Patient InstructionsZ-George Lopez - 10/18/2020 2:30 PM EDT It was good to talk with you Sakshi. I am sorry that you have been having such a difficult time with health challenges. I understand that you are not feeling up to more appointments right now. Please remember that you may call the [facility] anytime you feel that you can use the support of a health swimming coach or instructor (me). Be well, take care of you and enjoy the George bermudez Health Entry Level Java Developer documented in this encounter Progress Notes George Geiger - 10/18/2020 2:30 PM EDT [facility] Health Entry Level Java Developer Phone Visit - NEW 10/17/2020 [facility] provider: Dr. Acevedo IV: George Geiger [ x ] I confirmed that I am speaking with Blossom Samayoa who is doing this phone visit from home [ x ] Patient verbally consents to this telephone visit and understands that this visit may be billed, similar to a clinic office visit. [facility] Program Information: [ x ] I reviewed Blossom Samayoa'sknowledge/understanding of the [facility] program and pathways. Comments: obesity medicine [ x ] I reviewed Blossom Samayoa's expectations of Program: support Current goals (set by provider in initial visit) Goals ??? meal timing/food choices Try tracking using my fitnesspal or notebook Use your date book to keep track of things you need to do to improve your health. ?? Meal timing: consider eating biggest meal mid day, vending technician dinner, try not to eat after [...] cheese, or 1 cup Low fat plain Luxem[place] Yogurt or 3 eggs or 3 ounces of meat 3. Restart Protien shakes using Unsweetened [place] Milk 4. Consider Meal replacements such as Krista Cuisine or Healthy Choice (read label to reach 20 grams of protein) 5. Keep hard boiled eggs on hand 6. Aim for reducing fruit intake to 2 servings/day 1. Consider Investigating Deepka Stephanie 'What are you hungry for? 2. Restart Protien shakes using Unsweetened [place] Milk 3. When you feel well enough, boil a dozen hard boiled eggs ??? Other (Enter personal goal) Nutrition Goals: 1. Consider Investigating Deepka Stephanie 'What are you hungry for? 2. Restart Protien shakes using Unsweetened [place] Milk 3. When you feel well enough, [...] 10 minutes a day ?? Continue counseling Goals Addressed None [ x ] previous goals were reviewed with the patient What has been going well for you? Nothing. I am frustrate and overwhelmed. What are the biggest challenges you face right now? I have too many appointments with too many people. Still not feeling well, had tests and I have to wait 3 weeks to talk with the nurse about the results. What are the action(s) you are ready to take now? I would like to NOT meet with health swimming coach or instructor right now as I have too many appointments. I explained to patient that I am a resource and if at any time she feels I might be helpful, she juniecall [facility] to set up an appointment. She said she has been reading book - End Emotional Eating and hates it although she is almost doesn't with it and has picked up some helpful tid-bits. She feels that it is mostly not new information to her, she knows what is happening and why she makes not great foodchoices yet has a hard time stopping behaviors. She is participating in a diabetes support group near her home which she enjoys. Goal setting What is your current level of physical activity: not discussed What are you willing to start doing to add more movement into your day/week? Not discussed HC Assessment of Stage of Change: Overall health: contemplation/preparation Physical Activity:contemplation HC Recommendations: Patient would be a candidate for [ ] HLP [ ] individual health coaching Scheduling [ ] Health swimming coach or instructor call in [ ] weeks Also needs the following scheduled (audio visual secretary tasked to call) [ ] visit [ ] MD/EMERGENCY DEPARTMENT MANAGER visit [ ] Is interested in classes once offered: [ ] culinary [ ] peer I provided care to the patient today via telephone call, 30 minutes telephone visit was spent in discussion with patient on above. George Geiger, Health Entry Level Java Developer documented in this encounter Plan of Treatment Upcoming Encounters Date Type Specialty Care Team Description 03/15/2022 Office Visit Neurology Ryann Barfield, [facility] [place] [address] 03/23/2022 Appointment Radiology Hialey Mcclendon MD [facility] [place] [address] 03/23/2022 Laboratory Appointment Lab 03/23/2022 Office Visit Gastroenterology Hailey Mcclendon MD [facility] [place] [address] 05/23/2022 Procedure visit Maxillofacial Surgery Corby Montes MD [facility] [address] [place] [address] documented as of this encounter Goals Goal Patient Goal Associated Recent Patient-Stated? Author Type Problems Progress meal Lifestyle Not on track No Jeet, timing/food (08/26/2020 ilda Solitario 9:40 AM EST) RETORT KILN BURNER Note: Formatting of this note might be d ifferent from the original. Try tracking using my fitnesspal or note book Use your date book to keep track of thin gs you need to do to improve your health. Meal timing: consider eating biggest troy l mid day, vending technician dinner, try not to eat after [...] or 1 c up Low fat plain [place] Yogurt or 3 eggs or 3 ounces of meat 3. Restart Protien shakes using Unsweete mariam [place] Milk 4. Consider Meal replacements such as [place] na Cuisine or Healthy Choice (read label to reach 20 grams of protein) 5. Keep hard boiled eggs on hand 6. Aim for reducing fruit intake to 2 se rvings/day 1. Consider Investigating Deepka Stephanie 'What are you hungry for? 2. Restart Protien shakes using Unsweete mariam [place] Milk 3. When you feel well enough, boil a doz en hard boiled eggs Other (Enter personal goal) Lifestyle No Shaila Duffy I, RD Note: Formatting of this note might be d ifferent from the original. Nutrition Goals: 1. Consider Investigating Deepka Stephanie 'What are you hungry for? 2. Restart Protien shakes using Unsweete mariam [place] Milk 3. 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
--- OUTSIDE RECORDS SUMMARY | 2022-02-08 01:50 | XMS_ITS | Encounter Summary ---
:1960 Author Organization [facility] [place] [address] Care Team Providers Name Role Phone Albert Zuleta MD Primary Care Provider Reason for Visit Reason Comments Follow-up Nephrolithiasis Encounter Details Date Type Department Care Team Description 12/28/2020 Office Visit [place] [facility] [place] Crow Galvin Jr., Nephrolithiasis [facility] [place] [address] [facility] [phone] UROLOGY DEPT. [place], [place] [address] (Wo rk) Social History Tobacco [...] Sign Reading Time Taken Comments Blood Pressure 132/56 12/28/2020 3:23 PM EDT Pulse 70 12/28/2020 3:23 PM EDT Temperature - - Respiratory Rate - - Oxygen Saturation - - Inhaled Oxygen Concentration - - Weight 145.6 kg (321 lb) 12/28/2020 3:23 PM EDT Height - - Body Mass Index 51.81 11/18/2020 6:39 AM EDT documented in this encounter Progress Notes Crow Galvin Jr., MD - 12/28/2020 4:00 PM EDT Images from the original note were not included. Blossom Samayoa elected a telephone office visit. I obtained verbal consent from the patient to proceed with a telephone visit that may be billed similar to a clinic visit. HPI: Blossom Samayoa is a very pleasant 59 y.o.woman who presents for urologic follow-up regarding nephrolithiasis. She recently (10/2020) been evaluated for hematuria. A CT urogram which revealed noevidence of renal masses or renal pelvic or ureteral filling defects. Bilateral nonobstructing calyceal renal stones are noted largest approximately 8 mm left lower pole and 2 each 5 to 6 mm in the right kidney. She was seen by her local urology physician assistant gm of content & delivery and cystoscopy was recommended. It was felt she would benefit from cystoscopy under anesthesia, but her comorbidities would prevent her from having the procedure performed there. She contacted us to discuss further evaluation. She underwent cystoscopy, notable for no identified intravesical bleeding or tumors. Erythematous regions on trigone and posterior wall biopsied and fulgurated. Clear yellow urine effluxed from both ureteral orifices. No ureteral filling defects bilaterally. Final pathology revealed no evidence of malignancy. Regarding her history of nephrolithiasis, she has [...] calyx on retrograde ureteroscopy, >2cm total stone burden. Postop CT confirmed she had been rendered stone free bilaterally. Since her cystoscopy, she has been well. She has not had recurrence of hematuria. She denies suspected renal colic, witnessed stone passage, abdominal or flank pain. She was not able to collect the previously ordered 24-hour urine before today's visit. REVIEW OF SYSTEMS 12/28/2020 Constitutional Weight gain, Weakness, Fatigue, lack of energy, Pain Eyes Blurry vision, Dry eyes Respiratory Shortness of breath Cardiovascular Other heart symptoms Gastrointestinal Nausea, vomiting, Blood in stools, Heartburn, indigestion, Diarrhea, Abdominal pain, Feeling bloated Skin, hair Dry skin, Itching, Loss of hair, Changes in skin Musculoskeletal Joint stiffness, Back pain, Joint pain, Muscle stiffness, Reduced range of motion, Unable to walk/difficulty walking, Other symptoms with joints or muscles Neurological Balance difficulty, dizziness, Numbness, tingling, Muscular weakness Genitourinary Frequent urination, Sexual problems, Blood in urine, Burning or painful urination, Urinary incontinence, Dribbling, Menstrual problems, abnormal vaginal bleeding Past Medical History: Cardiomyopathy Diabetes Depression obesity HTN HLD MOSES Chronic pain Nephrolithiasis - has had several lithotripsies in the past ?? Past Surgical History: Lithotripsies Open cholecystectomy Open total hysterectomy Bilateral PCNL ?? Family History: No family history of kidney stones ?? Social History Lives alone Former smoker (quit 2017) No EtOH ?? Physical Exam Vitals reviewed. Cardiovascular: Rate and Rhythm: Normal rate. Pulmonary: Effort: No respiratory distress. Genitourinary: Comments: No CVA tenderness to percussion bilaterally Neurological: Mental Status: She is alert. Pathology Surgical Pathology DIAGNOSIS A - Bladder tumor (biopsy): ?? - Mild urothelial atypia, favor reactive changes in the setting ? of acute and chronic cystitis. ?? - Follicular cystitis. ?? - Muscularis propria is present and free of tumor. B - Bladder tumor, trigone (biopsy): ?? - Mild urothelial atypia, favor reactive changes in the setting ? of acute and chronic cystitis. ?? - Follicular cystitis. ?? - Muscularis propria is not present. Electronically signed by: ?Bernardino RUIZ, Agata Ray Verified: ??11/24/2020 16:44 ??Pathologist Prior Stone Analysis:?? 60% Calcium phosphate 20% Magnesium ammonium phosphate (struvite) 10% Calcium oxalate dihydrate 10% Calcium carbonate?Imaging studies. I independently reviewed the the renal ultrasound which again demonstrates a 7 mmleft lower pole renal stone. I have also reviewed the CT urogram images and its accompanying report from [facility] dated 10/18/2020. This reveals the aforementioned bilateral nonobstructing renal stones (largest approximately 7 mm left lower pole and 2 right renal stones largest approximately 5 mm.. No hydronephrosis is seen on either study. US IMPRESSION ?? Nonobstructing 7 mm left lower pole calculus, new from 12/2019. No hydronephrosis. 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 Impression/Plan: 1) Gross hematuria of unclear etiology, suspect nephrolithiasis given negative cystoscopy and no other findings on CT urogram. 2) bilateral nephrolithiasis. We reviewed management options for the stones. We discussed the role of watchful waiting, shock wave lithotripsy, and ureteroscopy. We additionally discussed the relative risks, benefits, stone-free success rate, and limitations of each. For now she declines surgical inter vention and is content to monitor. We will thus plan 6-month follow up with renal ultrasound, soonerprn. She has been instructed to call or return in the interval if new signs or symptoms of stone passage/renal colic should develop. 3) Prior marked hypercalciuria. We again discussed that both hyperparathyroidism as well as sarcoidosis may have contributed to this. She has now successfully undergone neck exploration and parathyroidectomy and her serum calcium had been noted to have reduced. We discussed the repeat 24-hour urine can assess whether hypercalciuria has resolved. We discussed that this can also assess the other abnormalities seen on the prior 24-hour urine. She is interested in pursuing this and will try to collect it in the next several months. We will plan follow-up in metabolic stone clinic in 4 to 6 months. For today she declines nephrology or nutrition consultations. 4)Hyperoxaluria. We had previously discussed a lower oxalate diet. She declines further nutrition consultation today. We will await follow-up 24-hour urine to assess the effect of current dietary adjustments that she had made. documented in this encounter Plan of Treatment Upcoming Encounters Date Type Specialty Care Team Description 03/15/2022 Office Visit Neurology Ryann Barfield APRN [facility] NEUROLOGY [place], [place] [address] 03/23/2022 Appointment Radiology Hailey Mcclendon MD [facility] [address] [place] [address] 03/23/2022 Laboratory Appointment Lab 03/23/2022 Office Visit Gastroenterology Hailey Mcclendon MD [facility] [address] [place] [address] 05/23/2022 Procedure visit Maxillofacial Surgery Corby Montes MD [facility] [address] [place] [address] documented as of this encounter Goals [...] consider eating biggest troy l mid day, 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 Restart Protien shakes using Unsweete mariam [place] Milk 4. Consider Meal replacements such as Le na Cuisine or Healthy Choice (read label to reach 20 grams of protein) 5. Keep hard boiled eggs on hand 6. Aim for reducing fruit intake to 2 se rvings/day 1. Consider Investigating Deepka Stephanie 'What are you hungry for? 2. Restart Protien shakes using Unsweete mariam [place] Milk 3. When you feel well enough, boil a doz en hard boiled eggs Other (Enter personal goal) Lifestyle No Shaila Duffy I, RD Note: Formatting of this note might be d ifferent from the original. Nutrition Goals: 1. Consider Investigating Deepka Stephanie 'What are you hungry for? 2. Restart Protien shakes using Unsweete mariam [place] Milk 3. When you feel well enough, boil a doz en hard boiled eggs documented as of this encounter Visit Diagnoses Diagnosis Nephrolithiasis Calculus of kidney documented in this encounter Care Teams Investment Analyst Relationship Specialty Start Date End Date Albert Zuleta MD PCP - General Family Medicine 01/17/17 10/26/[address] [place] [address] documented as of this encounter
--- OUTSIDE RECORDS SUMMARY | 2022-02-08 01:50 | XMS_ITS | Encounter Summary ---
:1960 Author Organization [facility] [place] [address] Care Team Providers Name Role Phone Albert Zuleta MD Primary Care Provider Encounter Details Date Type Department Care Team Description 07/28/2020 Telephone Weight and Wellness at [facility] Zhen Nogueira, [facility] [address] [place] [address] Social History Tobacco Use Types Packs/Day Years [...] this encounter Miscellaneous Notes Telephone Encounter - Britt Nogueira, [facility] - 07/28/2020 3:37 PM EST [facility] Pre-telemedicine Visit Phone Note Blossom Samayoa 1960 [x] Patient was not reached: [] No working phone [] Not able to leave message [x] Message left with visit info/call [phone] [] ZOOM link sent if no MyDH [] Patient was reached and the following information was reviewed/obtained per protocol: [] Confirmed patient name and date of [] Confirmed address where patient will be at time of call Patient is in [] [place] [] [place] [] Other: [address] [facility] [id number] [] Confirmed best number to be reached is: [] Reminded to sign up for MyD (sent invite) [x] Reminded to complete MyDH survey if message received to do so [] Confirmed ZOOM downloaded and functioning [] Confirmed visit contact information updated (text/email for sending ZOOM link) [] ZOOM appointment link sent if no MyDH documented in this encounter Plan of Treatment Upcoming Encounters Date Type Specialty Care Team Description 03/15/2022 Office Visit Neurology Ryann Barfield APRN [facility] [address] [place], [place] [address] 03/23/2022 Appointment Radiology Hailey Mcclendon MD [facility] [address] [place] [address] 03/23/2022 Laboratory Appointment Lab 03/23/2022 Office Visit Gastroenterology Hailey Mcclendon MD [facility] [address] [place] [address] 05/23/2022 Procedure visit Maxillofacial Surgery Corby Montes MD [facility] [address] [place] [address] documented as of this encounter Visit Diagnoses Not on filedocumented in this encounter Care Teams Bobbin Fixer Relationship Specialty Start Date End Date Albert Zuleta MD PCP - General Family Medicine 01/17/17 10/26/21 [address] [phone] documented as of this encounter
--- OUTSIDE RECORDS SUMMARY | 2022-02-08 01:50 | XMS_ITS | Encounter Summary ---
:1960 [place] [address] Care Team Providers Name Role Phone Albert Zuleta MD Primary Care Provider Encounter Details Date Type Department Care Team Description 11/18/2020 Anesthesia Event Main Operating Room Marta Putnam MD [facility] [place] [address] [facility] Vicente Loyd [facility] [place] [address] [place] [address] Anesthesia Record Procedure Summary Procedure Name Responsible Anesthesia Start Anesthesia Stop Anesthesiologist Time Time CYSTO, FULGURATION OF Marta Valdivia MD 11/18/20 0732 11/18/20 0922 BLADDER LESION, W OR W/O BX, 0.5 TO 2.0CM (WRVU 4.62) (N/A Ureter) Events Date Time Event Comment 11/18/2020 0701 0732 AN Verify 0732 Start 0732 An Start Data 0738 An Induction 0744 An Intubation 0747 Anesthesia Ready 0811 Procedure Start 0846 Quick Note Blood sugar = 24 4. 0906 Procedure Stop 0916 Extubation/LMA Out 0916 an stop data 0921 Recovery or ICU Handoff Patient care was transferred to the destination unit staff after review of the patient's medica l history, current anesthetic/surgi beverley status and plan, according to the Provider Handoff Checklist. 0922 Stop Name Total fentaNYL 100 mcg IV Lidocaine 50 mg Propofol 150 mg Ondansetron 4 mg fluconazole (Diflucan) 400 mg in sodium chloride 0.9% 200 mL infusion 400 mg ceFAZolin (Ancef) 2 g in dextrose 5% 100 mL infusion 2 g Propofol INF 374.01 mg Lactated Ringers 600 mL Agents Name O2 Air N2O Sevoflurane (et) Blood No blood administrations on file. Lines, Drains, and Airways Type Details Placement Removal Incision 07/01/19; 0911; upper 07/01/19 0911 by katrina Mccarty; Avani Zhou RN non-laparascopic puncture; U/S guided liver biopsy Incision 08/12/19; 1446; neck 08/12/19 1446 by Naomi Ahn RN Incision 11/18/20; 0811; other 11/18/20 0811 by (see comments) (entered Kelsey Baca RN urethral meatus); urethral meatus PIV 11/18/20; 0657; 11/18/20 0657 by 11/18/20 1105 b y metacarpal vein (top of Valeri Tucker RN B Lisseth norton RN hand), left; [id number] catheter system; Anatomical Landmarks; 20 gauge; Abelardo Tucker RN; distraction, tolerated well, appears comfortable; 11/18/20; 1105 Supraglottic Mask Ventilation: Easy 11/18/20 0744 by Tye, 0 11/18/20 0916 by Tye, (1); LMA Type: iGel; LMA Vicente A, BRUSH CUTTER Vicente A, BRUSH CUTTER Size: 4; Inserted by: brenton loyd documented in this encounter Social History Tobacco [...] encounter OR Notes Anesthesia Postprocedure Evaluation - Marta Valdivia MD - 11/18/2020 10:38 AM EDT Department of Anesthesiology Post-procedure Note Patient: Blossom Samayoa Procedure Summary Date: 11/18/20 Room / Location: [facility] OR [address] [place] [address] MAIN OR Anesthesia Start: 731 Anesthesia Stop: 921 Procedures: CYSTO, FULGURATION OF BLADDER LESION, W OR W/O BX, 0.5 TO 2.0CM (WRVU 4.62) (N/A Ureter) CYSTO, RETROGRADE, URETEROPYELOGRAPHY (WRVU 2.37) (Bilateral Bladder) FLUOROSCOPY (WRVU 0.17) (N/A ) Diagnosis: (stone?) Surgeons: Crow Galvin Jr., MD Responsible Provider: Marta Valdivia MD Anesthesia Type: general ASA Status: 3 All Anesthesia Providers: Anesthesiologist: Marta Valdivia MD BRUSH CUTTER: Vicente Loyd CRNA Vitals Value Taken Time BP 136/78 11/18/20 1015 Temp 36.3 ??C (97.3 ??F) 11/18/20 0928 Pulse 72 11/18/20 1015 Resp 16 11/18/20 1015 SpO2 95 % 11/18/20 1015 Pain Level 5 11/18/20 0945 Patient Location: PACU/[facility] Level of Consciousness: Awake and Alert Pain Management: Satisfactory Analgesia PONV: None Cardiovascular Status: At Baseline and Hemodynamically Stable Respiratory Status: At Baseline and Room Air Postoperative Fluid Status: Intravascular EUvolemia Possible Anesthetic Complications: NONE apparent at time of evaluation Final Primary Anesthesia Type: General (The anesthetic type performed was the same as planned.) Comments: Marta Valdivia MD Anesthesia Preprocedure Evaluation - Marta Valdivia MD - 11/18/2020 7:00 AM EDT Pre-Anesthesia Evaluation for: Blossom Samayoa a 59 y.o. female. Procedure(s): PARATHYROIDECTOMY OR EXPLORATION OF PARATHYROID(S) (WRVU 15.6) FACIAL NERVE MONITORING, SETUP LARYNGEAL (WRVU 1.57) Patient Active Problem List Diagnosis ??? Cirrhosis [...] ??? CHF (congestive heart failure) diag 2016 MCR ??? Chronic lung disease sarcoidosis ??? Chronic [...] failure 'don't know if it's failure ??? detention current use of opiate analgesic PCP ??? Mental health problem ??? Obstructive sleep apnea diag 2007 ??? Osteoma of ear canal ??? Vertigo balance prob,last fall early Jun. Past Surgical History: Procedure Laterality Date ??? IR ALL DRAINAGE PROCEDURES 02/20/2019 IR All Drainage Procedures 02/20/2019 Corby Flor MD [facility] INTERVENTIONL RAD ??? IR BIOPSY LIVER PERCUTANEOUS 07/01/2019 IR Biopsy Liver Percutaneous 07/01/2019 Corby Flor MD [facility] INTERVENTIONL RAD ??? IR DRAIN CHECK/CHANGE/REMOVE 03/07/2019 IR Drain Check/Change/Remove 03/07/2019 Albert Mendez MD [facility] INTERVENTIONL RAD ??? PRG ECHOENCEPHALOGRAPH REAL TIME Left 11/07/2018 ULTRASOUND USE (WRVU 0.63) performed by Crow Galvin Jr., MD at [facility] OR ??? PRG EMG, LARYNX N/A 08/12/2019 FACIAL NERVE MONITORING, SETUP LARYNGEAL (WRVU 1.57) performed by Emily Mcmahon MD at [facility] OR ??? PRG FLUOROSCOPY EXAM UP TO 1 HR PHY OR OTH HLTH CARE PROV N/A 09/26/2018 FLUOROSCOPY (WRVU 0.17) performed by Crow Galvin Jr., MD at [facility] OR ??? PRG FLUOROSCOPY EXAM UP TO 1 HR PHY OR OTH HLTH CARE PROV N/A 11/07/2018 FLUOROSCOPY (WRVU 0.17) performed by Crow Galvin Jr., MD at [facility] OR ??? PRG US GUIDE INTRAOP Right 09/26/2018 ULTRASONIC GUIDANCE, INTRAOP (WRVU 1.2) performed by Crow Galvin Jr., MD at [facility] OR ??? PRO COLONOSCOPY, REMV LESN, SNARE N/A 03/26/2019 COLONOSCOPY, POLYPECTOMY, REMOVAL LESION BY SNARE (WRVU 4.67) performed by Abhinav Stacy MD at [facility] ENDOSCOPY ? ? PRO CYSTO W URETEROSCOPY &/OR PYELOSCOPY, DX Right 09/26/2018 CYSTOURETEROSCOPY, DIAGNOSTIC (WRVU 5.75) performed by Crow Galvin Jr., MD at [facility] MAIN OR ? ? PRO CYSTO W URETEROSCOPY &/OR PYELOSCOPY, DX Left 11/07/2018 CYSTOURETEROSCOPY, DIAGNOSTIC (WRVU 5.75) performed by Crow Galvin Jr., MD at [facility] OR ??? PRO CYSTOSCOPY, INSERT URETERAL STENT Right 07/10/2018 CYSTO, STENT PLACEMENT (WRVU 2.82) performed by Viky Sears MD at [facility] OR ??? PRO CYSTOSCOPY, REMV CALCULUS, COMPLIC Right 09/26/2018 CYSTO, REMOVAL OF STENT, FOREIGN BODY, CALCULUS, COMPLICATED (WRVU 5.2) performed by Crow Galvin MD at [facility] OR ??? PRO CYSTOURETHROSCOPY, URETER CATHETER Right 07/10/2018 CYSTO, RETROGRADE, URETEROPYELOGRAPHY (WRVU 2.37) performed by Viky Sears MD at [facility] OR ??? PRO CYSTOURETHROSCOPY, URETER CATHETER Right 09/26/2018 CYSTO, RETROGRADE, URETEROPYELOGRAPHY, W/PCNL (WRVU 2.37) performed by Crow Galvin Jr., MD at [facility] OR ??? PRO EXPLORATORY OF ABDOMEN N/A 01/05/2019 @EXPLORATORY LAPAROTOMY, WITH/WITHOUT BIOPSY(S) (WRVU 12.54) performed by Ace Henry MD at [facility] OR ??? PRO EXPLORATORY OF ABDOMEN N/A 01/07/2019 @EXPLORATORY LAPAROTOMY, WITH/WITHOUT BIOPSY(S) (WRVU 12.54) performed by Ace Henry MD at [facility] OR ??? PRO EXPLORE PARATHYROID GLANDS N/A 08/12/2019 PARATHYROIDECTOMY OR EXPLORATION OF PARATHYROID(S) (WRVU 15.6) performed by Emily Mcmahon MD at [facility] OR ??? PRO FREEING BOWEL ADHESION, ENTEROLYSIS N/A 01/05/2019 @LYSIS OF ADHESIONS, ABD. (WRVU 18.46) performed by Ace Henry MD at [facility] OR ? ? PRO PERCUTANEOUS NEPHROSTOLITHOTOMY/PYELOSTOLITHOTOMY > 2 CM Right 09/26/2018 NEPHROLITHOTOMY, (PCNL) PERCUTANEOUS, OVER 2CM (WRVU 23.5) performed by Crow Galvin Jr., MD at [facility] OR ? ? PRO PERCUTANEOUS NEPHROSTOLITHOTOMY/PYELOSTOLITHOTOMY > 2 CM Left 11/07/2018 NEPHROLITHOTOMY, (PCNL) PERCUTANEOUS, OVER 2CM (WRVU 23.5) performed by Crow Galvin Jr., MD at [facility] MAIN OR ? ? PRO PLMT NEPHROSTOMY CATH PRQ NEW ACCESS RS&I Right 09/26/2018 NEPHROSTOMY CATHETER, PERC, INC DX NEPHROSTOGRAM/URETEROGRAM, IMG GUIDANCE (WRVU 4.25) performed byCrow Galvin Jr., MD at [facility] MAIN OR ? ? PRO PLMT NEPHROSTOMY CATH PRQ NEW ACCESS RS&I Left 11/07/2018 NEPHROSTOMY CATHETER, PERC, INC DX NEPHROSTOGRAM/URETEROGRAM, IMG GUIDANCE (WRVU 4.25) performed byCrow Galvin Jr., MD at [facility] MAIN OR ??? PRO RENAL ENDOSCOPY, TREATMENT Left 11/07/2018 RENAL ENDOSCOPY W\FULG, W\WO\BX, VIA NEPHROSTOMY (WRVU 6.61) performed by Crow Galvin Jr., MD [facility] MAIN OR ??? PRO RESECT SMALL INTEST, SINGL RESEC/ANAS N/A 01/07/2019 @BOWEL RESECTION, SMALL INTESTINE SINGLE ANASTOMOSIS (WRVU 20.82) performed by Ace Henry MD at [facility] MAIN OR Social History Tobacco Use ??? Smoking status: Former Smoker Packs/day: 1.00 Years: 30.00 Pack years: 30.00 Types: Cigarettes Quit date: 07/23/2016 Years since quittin.3 ??? Smokeless tobacco: Never Used Substance Use Topics ??? Alcohol use: No Comment: 3 X a year Social History Substance and Sexual Activity Drug Use Not Currently ??? Types: Marijuana Allergies Allergen Reactions ??? Ketamine Other (See Comments) Hallucinations ??? Anafranil [Clomipramine] Other (See Comments) give me the flu ??? Augmentin [Amoxicillin-Pot Clavulanate] Hives and Itching ??? Erythromycin Hives and Itching ??? Macrobid [Nitrofurantoin Monohyd/M-Cryst] Other (See Comments) Causes depression ??? Sulfa (Sulfonamide Antibiotics) Hives Medications: MAR and/or home medications have been reviewed. Physical Exam: No data found. There is no height or weight on file to calculate BMI. Airway Assessment: Mallampati: II TM distance: >3 FB Neck ROM: full Intubated with 7.5 ETT Cardiovascular Assessment: Rhythm: regular Rate: abnormal Pulmonary Assessment: unlabored breathing pulmonary exam normal Dental Assessment: - normal exam Misc Assessment: Patient is wearing No contact(s). IV access: Peripheral line Anesthesia Plan: ASA 3 general, with a(n) intravenous induction 58 yo woman with stone? for cysto, retrograde ureteropyelography. 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 with acute hypoxic respiratory failure and shock (WBC 25, lactate 15) taken to the OR or ex-lap for concern for bowel ischemia (no ischemic bowel noted) EF found to be 15% on admission, 30% on 01/06/2019 with di ffuse wall motion abnormalities on repeat Echo. ECG: SR with 1st degree AVB (LBBB noted on prior ECG no longer present) Cath 08/2018: non obstructive CAD Impression/Plan: ASA 3 GA/ETT; routine monitors (patient does not tolerate fentanyl post op) Risks, plans, and procedures discussed with patient who understands and consents; questions and concerns addressed Patient has a DNR order but agrees to rescind the order for the perioperative period (will be reinstated 24 hrs post surgery) Region - Other Informed Consent: Anesthetic plan and risks discussed with patient. Plan discussed with BRUSH CUTTER and attending. PAT Clinic Note documented in this encounter Plan of Treatment Upcoming Encounters Date Type Specialty Care Team Description 03/15/2022 Office Visit Neurology Ryann Barfield APRN [facility] [address] [place] [address] 03/23/2022 Appointment Radiology Hailey Mcclendon MD [facility] [address] [place] [address] 03/23/2022 Laboratory Appointment Lab 03/23/2022 Office Visit Gastroenterology Hailey Mcclendon MD [facility] [address] [place] [address] 05/23/2022 Procedure visit Maxillofacial Surgery Corby Montes MD [facility] [address] [place] [address] documented as of this encounter Goals [...] consider eating biggest troy l mid day, service attendant cafeteria dinner, try not to eat after dinner-try [...] 3. Restart Protien shakes using Unsweete mariam Imlay Milk 4. Consider Meal replacements such as Le na Cuisine or Healthy Choice (read label to reach 20 grams of protein) 5. Keep hard boiled eggs on hand 6. Aim for reducing fruit intake to 2 se rvings/day 1. Consider Investigating Deepka Stephanie 'What are you hungry for? 2. Restart Protien shakes using Unsweete mariam Imlay Milk 3. When you feel well enough, boil a doz en hard boiled eggs Other (Enter personal goal) Lifestyle No Shaila Duffy RD Note: Formatting of this note might be d ifferent from the original. Nutrition Goals: 1. Consider Investigating Deepka Stephanie 'What are you hungry for? 2. Restart Protien shakes using Unsweete mariam Imlay Milk 3. When you feel well enough, boil a doz en hard boiled eggs documented as of this encounter Visit Diagnoses Not on filedocumented in this encounter Administered Medications Inactive Administered Medications - up to 3 most recent administrations Medication Order MAR Action Action Date Dose Rate Site ceFAZolin (Ancef) 2 g in dextrose 5% Given 11/18/2020 7:48 AM ED T 2 g 100 mL infusion 2 g, Intravenous, WET MILLING WHEEL OPERATOR TO O.R., 1 dose, On Arin 11/18/20 at 0000, Administer over 30 Minutes, Indication for (Active or Suspected): Prophylaxis fentaNYL (pf) (50 mcg/mL) multi-dose Given 11/18/2020 7:38 AM ED T 100 mcg injection Intravenous, PRN, Starting on Arin 11/18/20 at 0738, Until Sun11/18/20 at 0922, Anesthesia Intra-op, Routine fluconazole (Diflucan) 400 mg in sodium Given 11/18/2020 7:52 AM EDT 400 mg chloride 0.9% 200 mL infusion 400 mg, Intravenous, WET MILLING WHEEL OPERATOR TO O.R., 1 dose, On Arin 11/18/20 at 0730, Administer over 120 Minutes, Indication for (Active or Suspected): Prophylaxis, Restricted Antibiotic: Please indicate the most appropriate choice: Pre-approved Indication (State the indication in Comments field) lactated ringers infusion New Bag 11/18/2020 7:32 AM EDT Intravenous, CONTINUOUS PRN, Starting on Arin 11/18/20 at 0732, Until Arin 11/18/20 at 0922, Anesthesia Intra-op lidocaine (pf) (Xylocaine) (20 mg/mL) 2% Given 11/18/2020 7:38 A M EDT 50 mg injection syringe Intravenous, PRN, Starting on Arin 11/18/20 at 0738, Until Arin 11/18/20 at 0922, Anesthesia Intra-op, Routine ondansetron (pf) (Zofran) (2 mg/mL) inje ction Given 11/18/2020 9:15 AM EDT 4 mg Intravenous, PRN, Starting on Arin 11/18/20 at 0915, Until Arin 11/18/20 at 0922, Anesthesia Intra-op, Routine propofoL (Diprivan) 10 mg/mL bolus injection Given 7:38 AM EDT 150 mg (Anesthesia) Intravenous, PRN, Starting on Arin 11/18/20 at 0738, Until Arin 11/18/20 at 0922, Anesthesia Intra-op propofoL (Diprivan) infusion New Bag 11/18/2020 7:47 AM 30 mcg/kg/min 25.794 mL/hr Intravenous, CONTINUOUS PRN, EDT Starting on Arin 11/18/20 at 0747, Until Arin 11/18/20 at 0922, Anesthesia Intra-op, Routine documented in this encounter Care Teams Community Services Manager Relationship Specialty Start Date End Date Albert Zuleta MD PCP - General Family Medicine 01/17/17 10/26/21 [address] [place] [phone] documented as of this encounter
--- OUTSIDE RECORDS SUMMARY | 2022-02-08 01:50 | XMS_ITS | Encounter Summary ---
:1960 Author Organization [facility] [address] Care Team Providers Name Role Phone Albert Zuleta MD Primary Care Provider Encounter Details Date Type Department Care Team Description 03/03/2020 [place]iology [place] [facility] [place], [place] [phone] Social History Tobacco Use Types Packs/Day [...] Ryann Barfield, [facility] [address] [place] [address] 03/23/2022 Appointment Radiology Hailey Mcclendon MD [facility] [address] [place] [address] 03/23/2022 Laboratory Appointment Lab 03/23/2022 Office Visit Gastroenterology Hailey Mcclendon MD [facility] [place] [address] 05/23/2022 Procedure visit Maxillofacial Surgery Corby Montes MD [facility] [place] [address] documented as of this encounter Visit Diagnoses Not on filedocumented in this encounter Care Teams Orthophoto Tech/D[place]man Relationship Specialty Start Date End Date Albert Zuleta MD PCP - General Family Medicine 01/17/17 10/26/21 [place] [address] documented as of this encounter
--- OUTSIDE RECORDS SUMMARY | 2022-02-08 01:50 | XMS_ITS | Encounter Summary ---
:1960 Author Organization [place] [address] Care Team Providers Name Role Phone Albert Zuleta MD Primary Care Provider Encounter Details Date Type Department Care Team Description 11/18/2020 Hospital Encounter Same Day Program at Meghana Galvin Jr., Formerly [facility], [address] [place] [address] [place] [address] [phone] (Wo rk) Social History Tobacco Use Types [...] Sign Reading Time Taken Comments Blood Pressure 136/78 11/18/2020 10:15 AM EDT Pulse 70 11/18/2020 11:00 AM EDT Temperature 36.3 ??C (97.3 ??F) 11/18/2020 9:28 AM EDT Respiratory Rate 16 11/18/2020 11:00 AM EDT Oxygen Saturation 96% 11/18/2020 11:00 AM EDT Inhaled Oxygen Concentration - - [...] with the Urology nurses. The number is [phone]. The clinic is open from 8-5 M-F. - For urgent/emergent issues during the night or weekends call the [facility] automation operator at [phone] and ask to speak to the urology resident biometrics consultant. If your issue is not urgent, please [...] Attending Physician: Meghana Galvin Jr., MD Blossom Samyaoa is a 59 y.o. female presenting to [...] Operative Note Patient Name: Blossom Samayoa : [id number] MR#: [id number] Case Date: 11/18/2020 Surgeon: Surgeon(s) and Role: [...] pertinent to this patient.) Op Note - eMghana Galvin Jr., MD - 11/18/2020 8:11 AM EDT [facility] Operative Note Patient Name: Blossom Samayoa : [id number] MR#: [id number] Case Date: 11/18/2020 Surgeon: Surgeon(s) and Role: [...] were of normal size, shape, and position. Examining Chair Assembler fluoroscopy revealed no evident calcifications overlying either ureter The right ureteral orifice was gently intubated with a Stratton-tip catheter and retrograde pyelogramwas performed, which demonstrated no ureteral filling defects. No renal pelvis or calyceal filling defects were noted. A moderately narrowed upper pole infundibulum was appreciated with mild dilation of the upper pole calyx. There was brisk efflux of contrast and ureteral emptying was confirmed. Attention was then turned to the left. The left ureteral orifice was gently intubated with a Stratton-tip catheter and retrograde pyelogram was performed, which [...] 03/15/2022 Office Visit Neurology Ryann Barfield, [facility] [address] [place], [place] [address] 03/23/2022 Appointment Radiology Hailey Mcclendon MD [facility] [address] [address] 03/23/2022 Laboratory Appointment Lab 03/23/2022 Office Visit Gastroenterology Hailey Mcclendon MD [facility] [address] [place] [address] 05/23/2022 Procedure visit Maxillofacial Surgery Corby Montes MD [facility] [address] [place] [address] documented as of this encounter Goals [...] consider eating biggest troy l mid day, novelty balloon assembler and packer dinner, try not to eat after dinner-try [...] 3. Restart Protien shakes using Unsweete mariam [place] Milk 4. Consider Meal replacements such as Le na Cuisine or Healthy Choice (read label to reach 20 grams of protein) 5. Keep hard boiled eggs on hand 6. Aim for reducing fruit intake to 2 se rvings/day 1. Consider Investigating Deepka Stephanie 'What are you hungry for? 2. Restart Protien shakes using Unsweete mariam [place] Milk 3. When you feel well enough, boil a doz en hard boiled eggs Other (Enter personal goal) Lifestyle No Shaila Duffy RD Note: Formatting of this note might be d ifferent from the original. Nutrition Goals: 1. Consider Investigating Deepka Stephanie 'What are you hungry for? 2. Restart Protien shakes using Unsweete mariam [place] Milk 3. When you feel well enough, [...] / Laterality Volume Narrative [facility] - 11/18/2020 9:14 AM EDT This exam is auto-finalizing. No interpr etation was done. Meghana Galvin Jr., MD IMG FLUORO ORDERABLES Performing Organization Address City/[facility]/ZIP [facility] Phon e Number RAD [place], [place] Specimen to Pathology (11/18/2020 9:03 AM EDT) Specimen Anatomical Collection Method Collection Time Receive d Time (Source) Location / / Volume Laterality AP Specimen 11/18/2020 9:03 AM 9:03 EDT AM EDT Narrative [facility] - 11/18/2020 9:03 AM EDT Specimen requisition ordered. ??Separate Pathology report to follow Meghana Galvin Jr., MD PATHOLOGY/CYTOLOGY ORDERABLE S Performing Organization Address City/[facility] [place] [address] (ABNORMAL) Urine culture Cystoscopic Urine (11/18/2020 8:56 AM EDT) [facility] Method Time Signature Urine Culture 1,000-9,000 [facility]/ml Gram [facility] (A) LABORATORY Organism Gram [facility] Negative [facility] (A) HOSPITAL LABORATORY Specimen Anatomical Collection Method Collection Time Receive d Time (Source) Location / / Volume Laterality Urine specimen 11/18/2020 8:56 AM 021 9:54 (specimen) EDT AM EDT Comment: URINE FOR CULTURE Resulting Agency Comment Spec In Lab Meghana Galvin Jr., MD MICROBIOLOGY - GENERAL ORDER ELINA Performing Organization Address City/[facility]/ZIP Code Phon e Number [address] Specimen to Pathology (11/18/2020 8:55 AM EDT) Specimen Anatomical Collection Method Collection Time Receive d Time (Source) Location / / Volume Laterality AP Specimen 11/18/2020 8:55 AM 8:55 EDT AM EDT Narrative [facility] - 11/18/2020 8:55 AM EDT Specimen requisition ordered. ??Separate Pathology report to follow Meghana Galvin Jr., MD PATHOLOGY/CYTOLOGY ORDERABLE S Performing Organization Address City/[facility]/ZIP [place] [address] Surgical Pathology Report (11/18/2020 8:53 AM EDT) Component Value Ref Test Analysis Performed At [facility] Range Method Time Signature Surgical [id number] ? Location: [facility]; [facility]; A [facility] Report The signing pathologist has (i) examined the relevant preparation(s) for the [facility] specimen(s) and (ii) rendered or confirmed the [...] Ray Verified: ??11/24/2020 16:44 ??Pathologist Performed at: ??-[facility] Dept. of Pathology, [place], [place] ADDITIONAL STUDIES Deeper levels were examined [...] Organization Address City/State/[place] [address] (ABNORMAL) POCT Glucose (11/18/2020 8:44 AM EDT) athologist Signature POC Glucose 244 (H) 65 - 199 [facility] mg/dL [facility] LABORATORY Comment: Supplemental ranges: <140 mg/dL before meals <180 mg/dL all other times of the day Specimen Anatomical Collection Method Collection Time Receive d Time (Source) Location / / Volume Laterality Blood specimen 11/18/2020 8:44 AM 021 8:44 (specimen) EDT AM EDT Meghana Galvin Jr., MD POINT OF CARE TEST ORDERABLE S Performing Organization Address City/State/[place] [address] (ABNORMAL) POCT Glucose (11/18/2020 6:36 AM EDT) P athologist Signature POC Glucose 305 (H) 65 - 199 [facility]/dL [facility] Comment: Supplemental ranges: <140 mg/dL before meals <180 mg/dL all other times of the day Specimen Anatomical Collection Method Collection Time Receive d Time (Source) Location / / Volume Laterality Blood specimen 11/18/2020 6:36 AM 021 6:36 (specimen) EDT AM EDT Meghana Galvin Jr., MD POINT OF CARE TEST ORDERABLE S Performing Organization Address City/State/[place] [address] documented in this encounter [...] Provider: Vicente Gamble CRNA) 2 g, Intravenous, HAZMAT TECHNICIAN TO O.R., 1 dos e, Arin 11/18/20 at 0000, Administer over 30 Minutes, Indication for (Active or Suspected): Prophylaxis fluconazole (Diflucan) 400 mg in sodium chloride 0.9% 200 mL infusion (COMPLETED) 0752 (Given - Provid er: Vicente Gamble CRNA) 400 mg, Intravenous, HAZMAT TECHNICIAN TO O.R., 1 dose, Arin 11/18/20 at [...] Routine documented in this encounter Care Teams Deputy Treasurer Relationship Specialty Start Date End Date Albert Zuleta MD PCP - General Family Medicine 01/17/17 10/26/21 [address] [place] [id number] documented as of this encounter
--- OUTSIDE RECORDS SUMMARY | 2022-02-08 01:50 | XMS_ITS | Encounter Summary ---
:1960 Author Organization [facility] Address [address] [place] [address] Care Team Providers Name Role Phone Albert Zuleta MD Primary Care Provider Reason for Visit Reason Comments Establish Care Encounter Details Date Type Department Care Team Description 08/04/2020 Office Visit General Surgery at Patricia Butterfield obesity with [facility] MD R[place]to BMI of 50.0-59.9, [facility] [address], [place] GENERAL SURGERY [address] [place] [address] [phone] Social History Tobacco Use Types Packs/Day Years [...] Sign Reading Time Taken Comments Blood Pressure 142/59 08/04/2020 9:46 AM EST Pulse 64 08/04/2020 9:46 AM EST Temperature - - Respiratory Rate - - Oxygen Saturation 99% 08/04/2020 9:46 AM EST Inhaled Oxygen Concentration - - Weight 142.4 kg (314 lb) 08/04/2020 9:46 AM EST Height 167.6 cm (5' 5.98) 08/04/2020 9:46 AM EST Body Mass Index 50.71 08/04/2020 9:46 AM EST documented in this encounter Progress Notes Patricia Butterfield MD - 08/04/2020 10:00 AM EST [facility] Bariatric Surgery Candidacy Evaluation Reason for consultation: Blossom is a 59 y.o. year-old female referred by Iman Marcano APRN for consultation for consideration of surgical treatment of obesity. Her preferred procedure: None Prior bariatric surgery evaluations: None, patient never pursued in the past due to concerns that her eating habits would make surgery unsuccessful BARIATRIC SURGERY PROGRAM PATHWAY Review of progress with the requirements of the Bariatric Surgery Program: 1. Education: She [] has [x] Has not attended a Introduction to the [facility] Bariatric Surgery Program seminar, a comprehensive two hour meeting that provides a program overview, education on bariatric surgeries offered at [facility], risks and benefits, as well as patient expectations and follow up. [facility] Bari tric Surgery Program Educational seminars viewed 2. Pre-operative programmatic evaluations: Pending 3. Bariatric Surgery Program evaluations with RD Pending. 4. WT at visit #1: Wt & BMI By Encounter Date Office Visit from 08/04/2020 in General Surgery at [facility] TH Visit (TeleHealth) from 07/29/2020 in Weight and Wellness at [facility] Weight (!) 142.4 kg (314 lb) 1 08/04/2020 0946 (!) 143.7 kg (316 lb 14.4 oz) 1 07/29/2020 0900 BMI 50.7 1 08/04/2020 0946 51.14 1 07/29/2020 0900 5. Gallbladder status: [] intact, not studied. [x] S/P cholecystectomy 6. VTE risk assessment: extended VTE prophylaxis [x] is [] is not indicated post bariatric surgery discharge 7. Next steps in pathway: Additional testing/ consultations as determined as needed to be determined at today's visit. History of present illness: She states that she has struggled with obesity for many years. The patient has tried multiple weightloss measures without sustainable success. Factors that she identifies as contributing to her obesity include: genetics, overconsumption and inactivity. She seeks bariatric surgery for health reasons. She is being seen today in a preliminary evaluation to determine candidacy prior to completing all program requirements. Other motivating factors for seeking surgery for bariatric surgery: Wants to be able to walk. Unableto get joint replacements due to weight Her goals of surgery: >100 lb weight loss She states that she does binge eat, eat excessively at night, and will have uncontrollable urges to eat certain foods, like a compulsion, unrelated to hunger. Of note, in 2018 she presented with sepsis and underwent a negative exploratory laparotomy. She was initially left with an open abdomen, and later returned to the OR for resection of 80 cm of small bowel and abdominal wall closure. This was complicated by an abdominal wall abscess requiring IR drainage. Her EF during this illness was as low as 10-15%. Her most recent echo in 12/2019 showed an EF of 54% with areas of hypokinesis. She has compensated cirrhosis. History of GERD: Denies MOSES: [] MOSES screen negative [x] MOSES, on CPAP with adequate compliance Patient Active Problem List Diagnosis ??? MOSES (obstructive sleep apnea) Overview Note: On c pap ??? Insomnia ??? Bile acid malabsorption syndrome ??? Hyperparathyroidism, primary ??? Abscess ??? Shock ??? Renal calculus, left ??? HTN (hypertension) ??? Gastroesophageal reflux ??? PTSD (post-traumatic stress disorder) ??? COPD (chronic obstructive pulmonary disease) ??? Asthma ??? Anxiety ??? Depression ??? Former smoker ??? Chronic prescription opiate use Overview Note: Per PDMP Aug 2018: hydrocodone 5/325 bid prescribed by her PCP. ??? Ventral hernia ??? Nephrolithiasis ??? Cardiomyopathy ??? Type 2 diabetes mellitus, without long-term current use of insulin ??? History of herpes simplex infection ??? LBBB (left bundle branch block) ??? Class 3 severe obesity with serious comorbidity and body mass index (BMI) of 50.0 to 59.9 in adult ??? Sarcoidosis Past Surgical History: Procedure Laterality Date ??? IR ALL DRAINAGE PROCEDURES 02/20/2019 IR All Drainage Procedures 02/20/2019 Corby Flor MD [facility] INTERVENTIONL RAD ??? IR BIOPSY LIVER PERCUTANEOUS 07/01/2019 IR Biopsy Liver Percutaneous 07/01/2019 Corby Flor MD [facility] INTERVENTIONL RAD ??? IR DRAIN CHECK/CHANGE/REMOVE 03/07/2019 IR Drain Check/Change/Remove 03/07/2019 Albert Mendez MD [facility] INTERVENTIONL RAD ??? PRG ECHOENCEPHALOGRAPH REAL TIME Left 11/07/2018 ULTRASOUND USE (WRVU 0.63) performed by Crow Galvin Jr., MD at [facility] MAIN OR ??? PRG EMG, LARYNX N/A 08/12/2019 FACIAL NERVE MONITORING, SETUP LARYNGEAL (WRVU 1.57) performed by Emily Mcmahon MD at [facility] MAIN OR ??? PRG FLUOROSCOPY EXAM UP TO 1 HR PHY OR OTH HLTH CARE PROV N/A 09/26/2018 FLUOROSCOPY (WRVU 0.17) performed by Crow Gavlin Jr., MD at [facility] OR ??? PRG FLUOROSCOPY EXAM UP TO 1 HR PHY OR OTH HLTH CARE PROV N/A 11/07/2018 FLUOROSCOPY (WRVU 0.17) performed by Crow Galvin Jr., MD at [facility] OR ??? PRG US GUIDE INTRAOP Right 09/26/2018 ULTRASONIC GUIDANCE, INTRAOP (WRVU 1.2) performed by Crow Galvin Jr., MD at [facility] MAIN OR ??? PRO COLONOSCOPY, REMV LESN, SNARE N/A 03/26/2019 COLONOSCOPY, POLYPECTOMY, REMOVAL LESION BY SNARE (WRVU 4.67) performed by Abhinav Stacy MD at [facility] ENDOSCOPY ? ? PRO CYSTO W URETEROSCOPY &/OR PYELOSCOPY, DX Right 09/26/2018 CYSTOURETEROSCOPY, DIAGNOSTIC (WRVU 5.75) performed by Crow Galvin Jr., MD at [facility] MAIN OR ? ? PRO CYSTO W URETEROSCOPY &/OR PYELOSCOPY, DX Left 11/07/2018 CYSTOURETEROSCOPY, DIAGNOSTIC (WRVU 5.75) performed by Crow Galvin Jr., MD at [facility] OR ??? PRO CYSTOSCOPY, INSERT URETERAL STENT Right 07/10/2018 CYSTO, STENT PLACEMENT (WRVU 2.82) performed by Viky Sears MD at [facility] OR ??? PRO CYSTOSCOPY, REMV CALCULUS, COMPLIC Right 09/26/2018 CYSTO, REMOVAL OF STENT, FOREIGN BODY, CALCULUS, COMPLICATED (WRVU 5.2) performed by Crow Galvin MD at [facility] OR ??? PRO CYSTOURETHROSCOPY, URETER CATHETER Right 07/10/2018 CYSTO, RETROGRADE, URETEROPYELOGRAPHY (WRVU 2.37) performed by Viky Sears MD at [facility] OR ??? PRO CYSTOURETHROSCOPY, URETER CATHETER Right 09/26/2018 CYSTO, RETROGRADE, URETEROPYELOGRAPHY, W/PCNL (WRVU 2.37) performed by Crow Galvin Jr., MD at [facility] OR ??? PRO EXPLORATORY OF ABDOMEN N/A 01/05/2019 @EXPLORATORY LAPAROTOMY, WITH/WITHOUT BIOPSY(S) (WRVU 12.54) performed by Ace Henry MD at [facility] OR ??? PRO EXPLORATORY OF ABDOMEN N/A 01/07/2019 @EXPLORATORY LAPAROTOMY, WITH/WITHOUT BIOPSY(S) (WRVU 12.54) performed by Ace Henry MD at [facility] OR ??? PRO EXPLORE PARATHYROID GLANDS N/A 08/12/2019 PARATHYROIDECTOMY OR EXPLORATION OF PARATHYROID(S) (WRVU 15.6) performed by Emily Mcmahon MD at [facility] OR ??? PRO FREEING BOWEL ADHESION, ENTEROLYSIS N/A 01/05/2019 @LYSIS OF ADHESIONS, ABD. (WRVU 18.46) performed by Ace Henry MD at [facility] OR ? ? PRO PERCUTANEOUS NEPHROSTOLITHOTOMY/PYELOSTOLITHOTOMY > 2 CM Right 09/26/2018 NEPHROLITHOTOMY, (PCNL) PERCUTANEOUS, OVER 2CM (WRVU 23.5) performed by Crow Galvin Jr., MD at [facility] OR ? ? PRO PERCUTANEOUS NEPHROSTOLITHOTOMY/PYELOSTOLITHOTOMY > 2 CM Left 11/07/2018 NEPHROLITHOTOMY, (PCNL) PERCUTANEOUS, OVER 2CM (WRVU 23.5) performed by Crow Galvin Jr., MD at [facility] MAIN OR ? ? PRO [facility] NEPHROSTOMY CATH PRQ NEW ACCESS RS&I Right 09/26/2018 NEPHROSTOMY CATHETER, PERC, INC DX NEPHROSTOGRAM/URETEROGRAM, IMG GUIDANCE (WRVU 4.25) performed byCrow Galvin Jr., MD at [facility] MAIN OR ? ? PRO PLNV NEPHROSTOMY CATH PRQ NEW ACCESS RS&I Left 11/07/2018 NEPHROSTOMY CATHETER, PERC, INC DX NEPHROSTOGRAM/URETEROGRAM, IMG GUIDANCE (WRVU 4.25) performed byCrow Galvin Jr., MD at [facility] MAIN OR ??? PRO RENAL ENDOSCOPY, TREATMENT Left 11/07/2018 RENAL ENDOSCOPY W\FULG, W\WO\BX, VIA NEPHROSTOMY (WRVU 6.61) performed by Crow Galvin Jr., MD [facility] MAIN OR ??? PRO RESECT SMALL INTEST, SINGL RESEC/ANAS N/A 01/07/2019 @BOWEL RESECTION, SMALL INTESTINE SINGLE ANASTOMOSIS (WRVU 20.82) performed by Ace Henry MD at [facility] MAIN OR Open cholecystectomy Current Outpatient Medications: ??? metFORMIN (Glucophage) 500 [...] EVERY DAY NEEDED, Disp: , Rfl:1 ??? diclofenac (VOLTAREN) 1 % Gel, Apply topically 4 times daily as needed., Disp: , Rfl: ??? atorvastatin (LIPITOR) 10 mg Tablet, Take 10 mg by mouth daily., Disp: , Rfl: ??? HYDROcodone-acetaminophen (NORCO) 5-325 [...] BY MOUTH DAILY, Disp: , Rfl: 3 ??? nitroGLYcerin (NITROSTAT) 0.4 mg Tablet, Sublingual, Place 0.4 mg under the tongue every 5 minutes as needed for Chest pain., Disp: , Rfl: ??? dulaglutide (TRULICITY SUBQ), Inject subcutaneously once a week., Disp: , Rfl: Allergies Allergen Reactions ??? Ketamine Other (See Comments) Hallucinations ??? Anafranil [Clomipramine] Other (See Comments) give me the flu ??? Augmentin [Amoxicillin-Pot Clavulanate] Hives and Itching ??? Erythromycin Hives and Itching ??? Macrobid [Nitrofurantoin Monohyd/M-Cryst] Other (See Comments) Causes depression ??? Sulfa (Sulfonamide Antibiotics) Hives Family History Problem Relation Age of Onset ??? Cancer Father ??? Anesthesia Reaction Father ??? Cancer Sister Social History Socioeconomic History ??? Marital status: Spouse name: Not on file ??? Number of children: Not on file ??? Years of education: Not on file ??? Highest education level: Not on file Occupational History ??? Not on file Social Needs ??? Financial resource strain: Not on file ??? Food insecurity Worry: Not on file Inability: Not on file ??? Transportation needs Medical: Not on file Non-medical: Not on file Tobacco Use ??? Smoking status: Former Smoker Packs/day: 1.00 Years: 30.00 Pack years: 30.00 Types: Cigarettes Quit date: 07/23/2016 Years since quittin.0 ??? Smokeless tobacco: Never Used Substance and Sexual Activity ??? Alcohol use: No Frequency: Never Comment: 3 X a year ??? Drug use: Yes Types: Marijuana ??? Sexual activity: Never Partners: Male Lifestyle ??? Physical activity Days per week: Not on file Minutes per session: Not on file ??? Stress: Not on file Relationships ??? Social connections Talks on phone: Not on file Gets together: Not on file Attends muslim service: Not on file Active member of club or organization: Not on file Attends meetings of clubs or organizations: Not on file Relationship status: Not on file ??? Intimate partner violence Fear of current or ex partner: Not on file Emotionally abused: Not on file Physically abused: Not on file Forced sexual activity: Not on file Other Topics Concern ??? Not on file Social History Narrative ??? Not on file Functional status: Is ambulation limited most or all of the time? Yes, uses cane or walker Tolerance: Can take steps only one at a time. Can't stay vertical for more than a couple minutes due to joint pain. Also admits to shortness of breath with minimal exertion. Sleeps on side with 1 pillow, laying supine is uncomfortable. Karnofsky performance status scale: [] 90- able to carry on normal activity, minor signs or symptoms of disease [] 80- normal activity with effort, some signs or symptoms of disease [x] 70- cares for self, unable to carry on normal activity or to do active work ADLs: able to carry on without difficulty- [x] independent [] partially dependent [] totally dependent Use of assistive devices: cane/walker Dyspnea with routine activity: [] denies [] walking up inclines [x] any exertion Anesthesia history (per patient): denies untoward events Lactose/ Food/ Wheat/ Latex allergy/sensitivity: denies control plan: hysterectomy MBSAQIP Preoperative Risk Assessment (negative if left blank): General [x] Diabetes mellitus [] Non-insulin [x] Insulin [] Current smoker within 1 year Functional health status [x] Independent [] Partially dependent [] Totally dependent [] Unknown Pulmonary [] COPD (Severe) [] Oxygen Dependent [] History of pulmonary embolism [x] Obstructive sleep apnea requiring CPAP/BiPAP Gastrointestinal [] GERD requiring medication within 30 days prior to surgery Musculoskeletal [x] The patient's ambulation is limited most or all of the time Cardiac [] History of myocardial infarction [] Previous PCI/PTCA [] Previous cardiac surgery [x] Hypertension requiring medication # of anti-hypertensive meds: 3 [x] Hyperlipidemia requiring meds Vascular [] Vein thrombosis requiring therapy [] Venous stasis [] IVC filter IVC filter timing [] placed in anticipation of procedure [] IVC filter preexisting [] Unknown Renal [] Currently requiring or on dialysis [] Renal insufficiency Nutritional/Immune/Oncologyy/Other [] Steroid/Immunosuppressant use for chronic condition [] Therapeutic anticoagulation [] Previous obesity surgery/foregut surgery [] Previous organ transplant [facility] Initial Responses 07/22/2020 URICA - Readiness Score 8 (Pre-contemplation State) WEL-SF Total Scores Incomplete PHQ-2 SubScore 5 (Full PHQ-9 indicated) GAD2 Subscore 2 (Brief screen negative) PROMIS 10 Physical Scores 23.5 PROMIS 10 Mental Scores 33.8 Total REAP-S Scores 25 TFEQ - Uncontrolled Eating (UE) 55.55 TFEQ-Cognitive Restraint (CR) -11.11 TFEQ-Emotional Eating 55.55 Food Insecurity Score 4 [place] Category I Result 1 (Positive) [place] Category II Result 1 (Positive) [place] Category III 1 (Positive) [place] Sleep Apnea Total 3 (High Risk) Schooling Graduated from college Importance of making a change 10 - Very Important Confidence to make change 7 Most weighed 450 Age most weighed 32 Times lost 10 lbs or more 11 times of more Lost weight how? Ate less food, Ate less fat, Ate fewer carbohydrates, Exercised, Took laxatives or vomited, Ate more fruits, vegetables, salads, Ate less sugar, candy, sweets, Changed eating habits (didn't eat late at night, ate several small meals a day), Ate less junk food or fast food, Used a liquid diet formula (ex: Slimfast or Optifast), Joined a weight loss program (ex: Weight Watchers, [employer] Ruiz, SARKIS, or Overeaters Anonymous) Worried food would run out before we got money to buy more Sometimes true Food didnt last; no money to get more Sometimes true DPRP Score: 10 Bariatric Surgery VTE Risk Assessment Score Patients will be considered to be at high risk if they have one or more of the following: [] Previous VTE or BMI >/= 60 kg/m2 Or two or more of the following: [x] Age > 50 [x] BMI >/= 50 kg/m2 [] Male sex [] Recent tobacco use [] Obstructive sleep apnea [] Venous insufficiency/ varicose veins [] OCP or HRT within 30 days of surgery Total: extended VTE prophylaxis [x] is [] is not indicated post bariatric surgery discharge Patients are advised to stop HRT and OCP/ DMPA 1 month prior to surgery and hold for 1 month post op, and use control during this time if appropriate. All patients who take coumadin/ anti-10A inhibitors preoperatively are referred to the Thrombosis Clinic for recommendations. Review of Systems (negative if left blank): Constitutional: [x] fatigue EENT [] wears corrective lens [] vision or hearing problems Neurologic: [] paresthesias [] dizziness [] chronic headaches Cardiovascular: [] history of chest pain, squeezing, pressure [] syncope [] murmur [] palpitations Respiratory: [x] shortness of breath [] wheezing [x] symptoms of sleep apnea GI: [] GERD [] dysphagia [] early satiety [] abdominal pain [] hernia [] prior CT scan abdomen [] ED visit for abdominal pain [] nausea/vomiting [] blood in stool [] chronic diarrhea [] frequent constipation : [] incontinence [] hematuria [] history of renal calculi IRRIGATOR SPRINKLING SYSTEM: [] LMP: [] menorrhagia [] menopause Musculoskeletal [x] Myalgia/arthralgias: back, joints Extremities: [] Varicose veins [] telangiectasias [] edema Skin: [] skinfold rashes [] tattoos Endocrine: [] PCOS [] thyroid disease Heme/Lymph: [] excessive bruising [] lymphadenopathy [] transfusion history [] blood donor in past year [] iron deficiency history Allergic/ Immun: [] use of steroid/ immunosuppressant for chronic condition [] Latex, food or medication allergies: as per allergy list Psychiatric [x] depression [x] anxiety [] panic attacks [] history of suicide attempt [] symptoms ofbipolar disorder [] addictions- gambling, excessive shopping, prolonged Internet use [] History of abuse [] psychiatric hospitalization [] rehab admission Other: [] smoker within 1 year of surgery [] current smoker [] anticoagulation Physical exam: Vital signs: Patient Vitals for the past 24 hrs: Pulse BP SpO2 08/04/20 0946 64 142/59 99 % Body mass index is 50.71 kg/m??. Neuro: Non-focal Psych: Pleasant, conversant, normal affect, cognition and mood. Behavior:[] defensive [] hostile [] expressive [] quiet [[] monopolizing [[] argumentative [x] insightful [] insightless[] fidgety [x] motivated [] apathetic [] preoccupied [] negativistic [] disruptive [x] attentive Mood: [x] stable [] labile [] depressed [] happy [] anxious [] hypomanic [] intense [] angry [] worrisome [] flat [] detached [] fearful [] sad ENT: neck supple with normal ROM, no adenopathy or thyromegaly Lungs: CTA bilaterally without wheezing. Heart: RRR, no murmur appreciated. Abdomen: Obese, soft, non- tender Prior incisions: Right subcostal, midline Hernias: None Extremities: no lower extremity edema Skin: No areas of skin breakdown. Obesity distribution: [x] Central [] Gyneoid Assessment/ Plan: 59 y.o. year old female with Morbid obesity with multiple severe comorbidities including cardiomyopathy (EF 54%, up from 10-15% in setting of sepsis), compensated cirrhosis, diabetes, COPD, and significant deconditioning and immobility. She also describes disordered eating including binging, excessive night eating and uncontrollable urges for certain food types. She is quite self aware about her health problems. We discussed the risks and benefits of surgery and we both agreed that likely the risk of undergoingsurgery outweighs the potential benefit. I am also concerned that her disordered eating makes surgery less likely to be successful. I recommended she continue to follow up in the weight and wellness center and not proceed with surgery. She is in agreement with this plan documented in this encounter Plan of Treatment Upcoming Encounters Date Type Specialty Care Team Description 03/15/2022 Office Visit Neurology Ryann Barfield APRN [facility] [address] [place] [address] 03/23/2022 Appointment Radiology Hailey Mcclendon MD [facility] [address] [place] [address] 03/23/2022 Laboratory Appointment Lab 03/23/2022 Office Visit Gastroenterology Hailey Mcclendon MD [facility] [place] [address] 05/23/2022 Procedure visit Maxillofacial Surgery Corby Montes MD [facility] [place] [address] documented as of this encounter Goals Goal Patient Goal Associated Recent Patient-Stated? Author Type Problems Progress meal Lifestyle Not on track Sandra Marcano, timing/food (08/26/2020 Iman Ray, ilda 9:40 AM EST) SHMUEL Note: Formatting of this note might be d ifferent from the original. Try tracking using my fitnesspal or note book Use your date book to keep track of thin gs you need to do to improve your health. Meal timing: consider eating biggest troy l mid day, director cardiovascular dinner, try not to eat after dinner-try [...] as of this encounter Visit Diagnoses Diagnosis Morbid obesity with BMI of 50.0-59.9, ad ult Morbid obesity documented in this encounter Care Teams Grazing Aide Relationship Specialty Start Date End Date Albert Zuleta MD PCP - General Family Medicine 01/17/17 10/26/21 [address] [place] [address] documented as of this encounter
--- OUTSIDE RECORDS SUMMARY | 2022-02-08 01:50 | XMS_ITS | Encounter Summary ---
:1960 Author Organization [facility] [place] [address] Care Team Providers Name Role Phone Albert Zuleta MD Primary Care Provider Reason for Visit Consultation (Routine) - Closed Specialty Diagnoses / Procedures Referred By Contact Refer red To Contact Weight and Wellness Diagnoses Obesity, unspecified morbid obesity Regina Goldsmith, Htr Weight Wellness Procedures patient is enrolling in bariatric surgery program will need both diet (at least 3 visits) and psych counseling [employer] [address] [place] [phone] Fax: Referral ID Status Reason Start Date Expiration Date Visits V isits Requested Authorized [id number] Closed Consult, 04/14/2020 04/14/2021 1 1 Test & Treat Encounter Details Date Type Department Care Team Description 07/29/2020 TH Visit Weight and Wellness Iman Marcano, Amy s 3 severe obesity with serious comorbidity and body mass index (BMI) of 50.0 to 59.9 in adult, unspecified obesity type; (TeleHealth) at [facility] [employer] MOSES (obstructive sleep apnea); [address] [facility] Type 2 diabetes mellitus wit h diabetic neuropathy, with long-term current use of insulin; [facility] Insomnia, unspecified type [id number] [phone] [place], [place] [address] Social History Tobacco Use Types [...] - Inhaled Oxygen Concentration - - Weight 143.7 kg (316 lb 14.4 oz) 07/29/2020 9:00 AM EST Height 167.6 cm (5' 6) 07/29/2020 9:00 AM EST Body Mass Index 51.15 07/29/2020 9:00 AM EST documented in this encounter Patient Instructions Patient InstructionsIman Marcano, SHMUEL - 07/29/2020 9:00 AM EST From our visit today: It was great to meet you! Below are the goals we talked about. We decided to switch you back to just metformin, start with 1 tablet with am and pm meals and if tolerated after a week can increase to 2 tablets. Our nursing scheduler will call you to schedule next visits and go over class times. You will see Dr Butterfield to determine if you are a candidate for bariatric surgery due to your complex health problems Let me know if you have any questions or need anything! Iman Goals Addressed This Visit's Progress ??? meal timing/food choices Try tracking using my fitnesspal or notebook ?? Meal timing: consider eating biggest meal mid day, business economist dinner, try not to eat after dinner-try to stay within an 8-10 hour eating window- try to work on some consistency with meals to help avoidnight eating ?? will have formal RD visit to work on individualized dietary plan to address eating behaviors and timing/frequency of meals. ?? Try to eliminate sugar sweetened beverages and artifical sweetener in drinks. ?? Decrease processed food in favor of more whole foods -try adding some vegetables to meals ?? Goal 64 ounce of water daily. ??? movement ?? Try just getting up at least once an hour ?? Recommend resistance training 3 times a week -can use your weights ??? sleep ?? Try to be consistent with sleep. Goal 7 hours of sleep nightly. ?? Recommend consistent sleep and wake times, avoid electronics within one hour of sleep time ??? stress ?? Mindfulness/deep breathing practice to reduce cortisol -try for at least 10 minutes a day ?? Continue counseling Medications 07/29/20 0943 Medication Sig Taking? multivitamin (THERAGRAN) Tablet Take 1 tablet by mouth daily. Yes carvediloL (Coreg) 25 mg Tablet Take 12.5 mg by mouth 2 times daily (with meals). Take one half tablet by mouth two times daily. Yes Trulicity 1.5 mg/0.5 mL Pen Injector Yes amitriptyline (Elavil) 50 mg Tablet Take 50 mg by mouth nightly. Yes lactobacillus acidophilus & bulgar 1 million cell Tablet, Chewable CHEW ONE TABLET BY MOUTH EVERY DAY Yes ibuprofen (Advil;Motrin) 600 mg Tablet Take 1 tablet by mouth every 6 hours as needed for Pain. Yes acetaminophen (TYLENOL) 500 mg Tablet Take 1,000 mg by mouth every 6 hours as needed for Pain. Yes cholestyramine (QUESTRAN) 4 gram Powder Take by mouth 2 times daily (with meals). Yes acyclovir (ZOVIRAX) 5 % Ointment Apply 1 each topically every 3 hours. Yes diclofenac (VOLTAREN) 1 % Gel Apply topically 4 times daily as needed. Yes atorvastatin (LIPITOR) 10 mg Tablet Take 10 mg by mouth daily. Yes HYDROcodone-acetaminophen (NORCO) 5-325 mg Tablet Take 1 tablet by mouth 2 times daily. Mostly takesat night for sleep Yes aspirin 81 mg Tablet, Chewable Take 81 mg by mouth daily. Yes levalbuterol (XOPENEX HFA) 45 mcg/actuation HFA Aerosol Inhaler INHALE TWO PUFFS BY MOUTH EVERY 4 TO6 HOURS NEEDED Yes INCRUSE ELLIPTA 62.5 mcg/actuation Disk with Device INHALE ONE PUFF BY MOUTH EVERY DAY Yes loratadine (CLARITIN) 10 mg Tablet TAKE ONE TABLET BY MOUTH EVERY DAY NEEDED Yes gabapentin (NEURONTIN) 600 mg Tablet TAKE ONE TABLET BY MOUTH THREE TIMES A DAY Yes spironolactone (ALDACTONE) 25 mg Tablet TAKE ONE TABLET BY MOUTH EVERY DAY Yes lisinopril (PRINIVIL;ZESTRIL) 5 mg Tablet TAKE ONE TABLET BY MOUTH DAILY Yes Basaglar KwikPen U-100 Insulin 100 unit/mL (3 mL) pen INJECT 30 UNITS AT BEDTIME INCREASE BY 2 UNITSEVERY WEEK UNTIL IN THE MORNING BLOOD SUGARS ARE BELOW 150....MAX DOSE 45 UNITS metFORMIN XR (Glucophage XR) 500 mg Tablet Sustained Release 24 hr Take 2 tablets by mouth 2 times daily (with meals). Week 1: 500mg with a meal twice a day Week 2: 1000mg with a meal twice a day valACYclovir (VALTREX) 1 gram Tablet TAKE ONE TABLET BY MOUTH EVERY DAY NEEDED nitroGLYcerin (NITROSTAT) 0.4 mg Tablet, Sublingual Place 0.4 mg under the tongue every 5 minutes asneeded for Chest pain. dulaglutide (TRULICITY SUBQ) Inject subcutaneously once a week. documented in this encounter Progress Notes Iman Marcano APRN - 07/29/2020 9:00 AM EST [facility] [place] Patient provided verbal consent prior to initiation of this telemedicine encounter and expressed understanding that the telemedicine visit may be billed similar to a clinic visit I spent a total of 60 minutes in discussion / counseling related to multiple health problems, bariatric surgery, obesity, nutrition and physical activity as well as obesity related co-morbidities Patient Name: Blossom Samayoa Date of : 1960 Age: 59 y.o. Dear Albert Zuleta MD, Thank you for referring Blossom Samayoa to the [facility] for a consultation for obesity management. I reviewed past records including notes, labs, and other evaluations as reviewed below. I may make medication adjustments as appropriate based on the patient's ongoing state of health. Medications that I often manage include, but are not limited to, anti-obesity meds, diabetic medications and anti-hypertensives, and any adjustments I make will be communicated to you to maintain seamless care. Thank you again for allowing the [facility] to join Blossom Samayoa's healthcare team. SUMMARY OF VISIT: Blossom Samayoa presented to the [facility] for a consultative visit regarding obesity management. The patient has WHO Class 3 / EOSS Stage 3 Obesity defined by a BMI of Body mass index is 51.15 kg/m??. and comorbidities. I spent a total of 60 minutes with the patient of which >50% was spent in [id number] discussion/counseling regarding the diagnosis of obesity, interventions for treatment, and obesity related co-morbidities. Treatment options were discussed including intensive lifestyle intervention, pharmacothera py and bariatric surgery with risks and advantages outlined for each, based on patient interest. I have communicated with bariatric surgeon and recommend a pre bariatric consult as patient has many complex health problems and she is likely not a candidate for surgery due to risk, Surgeon to determine. OBESITY We discussed and agreed upon the pillars of obesity treatment. Discussed that 5-10% weight loss can improve patient's co-morbidities; Goal weight loss 32 pounds over 3-6 months Pharmocotherapy: We decided today to change glipizide/metformin to metformin XL, will start at 500mg twice daily withmeals and will increase to 1000 mg twice daily with meals if tolerated. Patient reports her blood sugars were better on just metformin and glipizide may contribute to weight gain so we will try changing and she will monitor her blood sugars. She has multiple eating behaviors that will need to be addressed to also improve blood glucose, she eats a highly refined, high carbohydrate diet with night eating. If possible, medications that promote weight gain should be avoided and medications that are weight-neutral or promote weight loss should be considered. This was reviewed but unlikely that we can change at this point. Referrals: [x]Nutrition [x]Health success coach []Sleep medicine [x]Bariatric surgery []GI [x]Behavioral health [x]ACT group [x] HLP []Research coordinator- declined Other pertinent changes CHIEF COMPLAINT: Management of excess weight She has had failure to sustain weight loss by medical management, is aware of non-surgical methods at weight loss, and meets the criteria proposed by the NIH Consensus Guidelines for surgical treatmentof severe obesity. ?? Patient has decided on pursuing bariatric surgery- will see surgeon up front as has multiple cardiac, pulmonary problems as well as significant complicated GI history. ?? Blossom was advised that weight loss from bariatric surgery depends on ability to eat a healthy diet correction after surgery. She is aware of our programmatic multi-disciplinary approach which includes two bariatric surgeons, as well as dietitians and obesity medicine specialist. She was advised that the final decision for procedure is made by the surgeon with input from the patient and team. Prospective patients are encouraged to thoroughly research bariatric surgery with [facility] website. Bariatric Surgery Program Requirements and further recommendations: [x] Attended bariatric information session 03/26/2020 [] Bariatric Pathway initiated -will hold off as likely not a surgical candidate due to multiple problems [] Dr. Butterfield [] Dr. Cuello [] Bypass [] Gastric sleeve [] UGI [] EGD [x] VTE risk Bariatric Surgery VTE Risk Assessment Score Patients will be considered to be at high risk if they have one or more of the following: Previous VTE or BMI >/= 60 kg/m2 Or two or more of the following: x X X x Age > 50 BMI >/= 50 kg/m2 Male sex Recent tobacco use Obstructive sleep apnea Venous insufficiency/ varicose veins OCP or HRT within 30 days of surgery Enoxaparin is/is not indicated s/p bariatric surgery [x] Note for medical necessity submitted to insurance [x] f/u 2 months [] Labs ordered [] Labs reviewed No results for input(s): HA1C in the last 7068 hours. [] A1C <8 [x] A1c>8 (reports over 8 not sure exactly) [x] Gallbladder removed [] gallbladder intact [x] Cardiac Clearance needed [] Cardiac clearance reviewed [x] MOSES [x] Psych consult -will refer to psych and ACT to work on emotional eating and night eating [x] RD Stage 2 Education scheduled [] RD note reviewed [] Starting weight 311 today 316.9 [] Patient ready for second half of program, schedule Surgical RD and Surgeon visit [x] Given the association of obesity with cancer, all age appropriate cancer screenings should be UTD Patients are advised to stop HRT and OCP/ DMPA 1 month prior to surgery and hold for 1 month post op, and use control during this time if appropriate HISTORY OF PRESENT ILLNESS: Weight History: Sakshi reports she was not an overweight child, but she knows she always over ate. Food was love for her and she is very aware of that. She was a little overweight in high school then atage 17 she gained, she has been as high as 450 lbs she then went on a liquid diet and lost 120 lbs then regained, she has lost and gained many many times. [facility] Weight History 07/22/2020 What is the most you have ever weighed? 450 How old were you then? 32 How many times have you lost 10 pounds or more because you were trying to lose weight? Was it... 11 times of more How did you try to lose weight? Ate less food, Ate less fat, Ate fewer carbohydrates, Exercised, Took laxatives or vomited, Ate more fruits, vegetables, salads, Ate less sugar, candy, sweets, Changed eating habits (didn't eat late at night, ate several small meals a day), Ate less junk food or fast food, Used a liquid diet formula (ex: Slimfast or Optifast), Joined a weight loss program (ex: Weight Watchers, SARKIS Bocanegra, or Overeaters Anonymous) Blossom Samayoa has had gradual weight gain due to: overeating, poor choices, night eating Peak weight: 450, now 316 Goal weight: would really like to lose 100 lbs 10% loss: 32 lbs Prior treatment/attempts to lose: Many, some has stayed off Unsuccessful changes in the past: calorie restriction, exercise, multiple diets Successful attempts in the past: liquid but gained back Hx medications to treat obesity: none but on some antidiabetes meds that both worsen weight gain andimprove, will work on diet to try to decrease insulin. Hx metabolic surgery: no, considering now, likely not a surgical candidate Barriers to success: night eating, habits, isolation Why is now the time to try again? Failing health worsening Nutrition In your opinion do you eat a healthy diet? no Food Behaviors- very inconsistent Appetite: Moderate to high Satiety: Sometimes but never at night Eating out of: [x]Hunger [x]Habit [x]It's time. []Boredom [x]Emotions Eating patterns: [x]Mindless eating []binge eating [x]Grazing [x]skips meals [x]night eating Eating out: no Eating patterns: Consistent night eating other eden inconsistent eating pattern Diet Recall for a typical day: Breakfast: 2 cups coffee (with flavored creamer) and balaji Snack: Lunch: mac and cheese Snack: balaji, 2 scrambled eggs Dinner: 10 oz bouillion Snack: 1 am, 4 servings of wheat thins, then got up a second time and had parmesan noodles, the restof the box of wheat thins. 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 Yes, disordered sleep still Walling Sleep Apnea 07/22/2020 Please choose the correct response to each of the following questions. Do you snore? Yes Your snoring is: Slightly louder than breathing How often do you snore? 1-2 times a week Has your snoring ever bothered other people? Don't know Has anyone noticed that you quit breathing during your sleep? Nearly every day How often do you feel tired or fatigued after your sleep? Nearly every day During your waking time, do you feel tired, fatigued or not up to par? Nearly every day Have you ever nodded off or fallen asleep while driving a vehicle? Yes How often does this occur? Never or nearly never Do you have high blood pressure? Yes Walling Category I 3 (Positive) Walling Category I Result 1 (Positive) Walling Category 2 3 (Positive) Walling Category II Result 1 (Positive) Walling Category 3 1 (Positive) Walling Sleep Apnea Result 3 (High Risk) Movement: Is ambulation limited most or all of the time? Yes by hip pain Tolerance: she can climb a flight of stairs: very difficult Purposeful exercise now? None Resistance training: [ ] times per week x [ ]minutes- has some weights but doesn't use them CV exercise: [ ] times per week x [ ] minutes- none Activity enjoyed in past? Swimming (used to swim a mile a day) , going to gym but doesn't stick withit NEAT? None Stress Management: eating Accountability: None other than going to doctor [] Daily or weekly weights [] Food log/jonathan [] Other Social History: Reviewed and updated in eD. Lives alone, no support. Is in counseling REVIEW OF SYSTEMS: Review of Systems Constitutional: Positive for fatigue. HENT: Positive for postnasal drip and sinus pressure. Eyes: Positive for visual disturbance. Blurry vision Up to date with eye exam Respiratory: Positive for apnea and shortness of breath. Has sleep apnea, on C pap, chronic sleep problems Cardiovascular: Positive for palpitations and leg swelling. LBBB damaged left ventricle Cardiomyopathy CHF Gastrointestinal: Positive for abdominal pain, blood in stool and diarrhea. Bile acid malabsorption, chronic diarrhea, on medication Has intestinal pain, has been referred to gastro, has some blood in her stool, has had pain [id number] History of hernia repairs Bowel resection Cirrhosis -fatty liver Endocrine: Positive for cold intolerance. Very poorly controlled type 2 diabetes Genitourinary: Multiple renal calculi- passes regularly Reports urine dark despite drinking a lot of water [address] [facility] Musculoskeletal: Positive for arthralgias, gait problem, joint swelling and myalgias. Hip pain, has to walk with a walker or cane, need a hip replacement Skin: Scratches herself at night, habitual Allergic/Immunologic: Positive for environmental allergies. Neurological: Neuropathy in feet Hematological: Negative. Psychiatric/Behavioral: Positive for dysphoric mood and sleep disturbance. The patient is nervous/anxious. Has been on antidepressants in the past and in therapy in the past but stopped, didn't find helpful, caused sexual side effects Review of Systems 07/22/2020 Have you recently experienced any of the following symptoms? Blurry vision, Fatigue, Redness in skinfolds (intertrigo), Edema (swelling of legs), Shortness of breath, Diarrhea, Abdominal pain, Joint pain, Muscle pain, Frequent thirst, Anxiety, Depression Do you have an intolerance to any of the below items? Other Please specify: [facility] PHQ-2 07/22/2020 Over the LAST 2 WEEKS, how often have you been bothered by little interest or pleasure in doing things? Nearly every day Over the LAST 2 WEEKS, how often have you been bothered by feeling down, depressed, or hopeless? More than half the days PHQ-2 Score 5 (Full PHQ-9 indicated) WCCGAD2 07/22/2020 Over the LAST 2 WEEKS, how often have you been bothered by feeling nervous, anxious or on edge? Several days Over the LAST 2 WEEKS, how often have you been bothered by not being able to stop or control worrying? 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 N/a s/p RUSTAM MEDICAL HISTORY Obesity related co-morbidities: Past Medical History 07/22/2020 Have you had any of the following medical problems? Previous KS (previous heart attack or heart problems), Afib (irregular heart beat), High blood pressure, Structural (valvular) heart disease /heart murmur, COPD, Sleep apnea, Inflammatory bowel disease (Crohn???s, Ulcerative colitis), Fatty liver, Kidney stones, Diabetes, Thyroid disease, Osteoarthritis, Eating disorder, Past or current treatment with psychiatrist Obesogenic medications: Yes, but unlikely to be able to come off Medical and Surgical History: Reviewed and updated. Family History: Reviewed and updated in [facility]. Number of family members with obesity: most Response of family members to weight loss surgery: n/a Cancers: (medullary thyroid?) See below h/o early cardiac : yes Family History 07/22/2020 Do any of these medical conditions run in your family? Obesity, Type 2 diabetes, Early cardiac , Colorectal cancer VITAL SIGNS: Vitals: 07/29/20 0900 Weight: (!) 143.7 kg (316 lb 14.4 oz) Height: 167.6 cm (5' 6) Last 5 weight values: Wt Readings from Last 5 Encounters: 07/29/20 (!) 143.7 kg (316 lb 14.4 oz) 09/25/19 135.2 kg (298 lb) 08/13/19 131 kg (288 lb 14.4 oz) 08/12/19 131.5 kg (290 lb) 03/28/19 121.8 kg (268 lb 9.6 oz) PHYSICAL EXAM: Gen: 59 y.o. year old female with obesity who appears stated age. NAD. Appearance: appropriate Psych: pleasant, conversant and engaged, normal affect, cognition and mood. PREVIOUS LABS AND IMAGING: Reviewed Last CBC Lab Results Component Value Date WBC 10.37 (External Lab) 03/12/2020 RBC 3.76 (ExtL) 03/12/2020 HGB 11.6 (External Lab) 03/12/2020 HCT 36.0 (External Lab) 03/12/2020 MCV 95.7 (ExtH) 03/12/2020 MCH 30.9 (External Lab) 03/12/2020 MCHC 32.2 (External Lab) 03/12/2020 PLATELET 193 (External Lab) 03/12/2020 RDWCV 13.1 (External Lab) 03/12/2020 Last CMP Lab Results Component Value Date NA 135 (ExtL) 03/12/2020 K 4.5 (External Lab) 03/12/2020 CL 100 (External Lab) 03/12/2020 CO2 23 (External Lab) 03/12/2020 BUN 15 (External Lab) 03/12/2020 CREATININE 0.85 (External Lab) 03/12/2020 GLUCOSE 240 (ExtH) 03/12/2020 GLUCFASTING 241 (H) 09/12/2018 CALCIUM 9.7 (External Lab) 03/12/2020 ESTGFR >60 (External Lab) 03/12/2020 Lab Results Component Value Date ALT 59 (External Lab) 03/12/2020 AST 52 (ExtH) 03/12/2020 ALKPHOS 93 (External Lab) 03/12/2020 BILITOT 0.7 (External Lab) 03/12/2020 BILIDIR 0.2 06/13/2019 ALBUMIN 4 (External Lab) 03/12/2020 PROT 7.7 (External Lab) 03/12/2020 Lipid Panel Lab Results Component Value Date CHLPL 127 07/10/2018 HDL 34 07/10/2018 CHOLHDL 3.7 07/10/2018 TRIG 271 07/10/2018 LDLDIRECT 62 07/10/2018 Last 3 Hemoglobin A1Cs Lab Results Component Value Date HA1C 7.9 (H) 01/13/2019 HA1C 7.8 (H) 07/10/2018 Latest TSH Lab Results Component Value Date TSH 2.90 01/04/2019 Lab Results Component Value Date GLUCFASTING 241 (H) 09/12/2018 No results found for: FERRITIN No results found for: [id number] 25-OH Vit D Total (ng/mL) Date Value Status 09/25/2019 24 (L) Final ASSESSMENT AND PLAN Diagnoses and all orders for this visit: Class 3 severe obesity with serious comorbidity and body mass index (BMI) of 50.0 to 59.9 in adult, unspecified obesity type MOSES (obstructive sleep apnea) Type 2 diabetes mellitus with diabetic neuropathy, with long-term current use of insulin - metFORMIN XR (Glucophage XR) 500 mg Tablet Sustained Release 24 hr; Take 2 tablets by mouth 2 times daily (with meals). Week 1: 500mg with a meal twice a day Week 2: 1000mg with a meal twice a day Insomnia, unspecified type Goals Addressed This Visit's Progress ??? meal timing/food choices Try tracking using my fitnesspal or notebook ?? Meal timing: consider eating biggest meal mid day, business economist dinner, try not to eat after dinner-try to stay within an 8-10 hour eating window- try to work on some consistency with meals to help avoidnight eating ?? will have formal RD visit to work on individualized dietary plan to address eating behaviors and timing/frequency of meals. ?? Try to eliminate sugar sweetened beverages and artifical sweetener in drinks. ?? Decrease processed food in favor of more whole foods -try adding some vegetables to meals ?? Goal 64 ounce of water daily. ??? movement ?? Try just getting up at least once an hour ?? Recommend resistance training 3 times a week -can use your weights ??? sleep ?? Try to be consistent with sleep. Goal 7 hours of sleep nightly. ?? Recommend consistent sleep and wake times, avoid electronics within one hour of sleep time ??? stress ?? Mindfulness/deep breathing practice to reduce cortisol -try for at least 10 minutes a day ?? Continue counseling Care pathway: Pathway: [facility] PATHWAY - ADULT 07/29/2020 Medication Therapy Activate Obesity Medicine Activate Return in about 4 weeks (around 08/26/2020). New patient: med changes follow up 4 weeks- will see surgeon to determine if BSP- will likely need extra visits either way, can be scheduled after seen by surgeon RD/HC declines research Please put on list for psych to work on night eating Please review dates for HLP/ACT both would be appropriate I spoke with Blossom about opportunities to participate in research and to be contacted by our research assistant chief engineer. They indicated that they are: [] INTERESTED [x] NOT INTERESTED // [] NOT ADDRESSED documented in this encounter Plan of Treatment Upcoming Encounters Date Type Specialty Care Team Description 03/15/2022 Office Visit Neurology Ryann Barfield APRN [facility] [place] [address] 03/23/2022 Appointment Radiology Hailey Mcclendon MD [facility] [facility] [address] [place] [address] 03/23/2022 Laboratory Appointment Lab 03/23/2022 Office Visit Gastroenterology Hailey Mcclendon MD [facility] [address] [place] [address] 05/23/2022 Procedure visit Maxillofacial Surgery Corby Montes MD [facility] [address] [place] [address] documented as of this encounter Goals Goal Patient Goal Associated Recent Patient-Stated? Author Type Problems Progress meal Lifestyle Not on track Sandra Marcano, timing/food (08/26/2020 ilda Solitario 9:40 AM EST) BLAST FURNACE AUXILIARIES SUPERVISOR Note: Formatting of this note might be d ifferent from the original. Try tracking using my fitnesspal or note book Use your date book to keep track of thin gs you need to do to improve your health. Meal timing: consider eating biggest troy l mid day, business economist dinner, try not to eat after dinner-try [...] track (08/26/2020 9:40 AM EST) Iman Hannon, BLAST FURNACE AUXILIARIES SUPERVISOR Note: Formatting of this note might be [...] to 59.9 in adult, unspecified obesity type MOSES (obstructive sleep apnea) Obstructive sleep apnea (adult) (pediatr ic) Type 2 diabetes mellitus with diabetic n europathy, with long-term current use of insulin Insomnia, unspecified type documented in this encounter Care Teams Financial Secretary Relationship Specialty Start Date End Date Albert Zuleta MD PCP - General Family Medicine 01/17/17 10/26/21 [address] [place] [address] documented as of this encounter
--- OUTSIDE RECORDS SUMMARY | 2022-02-08 01:50 | XMS_ITS | Encounter Summary ---
:1960 Author Organization [facility] [place] [address] Care Team Providers Name Role Phone Albert Zuleta MD Primary Care Provider Encounter Details Date Type Department Care Team Description 07/29/2020 Telephone General Surgery at [facility] [place] [address] Social History Tobacco Use Types Packs/Day [...] this encounter Miscellaneous Notes Telephone Encounter - Loyda Wong - 07/29/2020 3:29 PM EST Called pt left message for her to call back and schedule consult with Dr. Butterfield for bariatric evaluation Telephone Encounter - Loyda Wong - 07/29/2020 3:28 PM EST ----- Message from Iman Marcano APRN sent at 07/29/2020 10:07 AM EST ----- Regarding: RE: new patient evaluation History of extensive cardiac disease, cardiomyopathy, heart failure, COPD, multiple complicated health problems, thanks! ----- Message ----- From: Loyda Wong Sent: 07/29/2020 9:52 AM EST To: Patricia Butterfield MD, Iman Marcano APRN Subject: RE: new patient evaluation Can you confirm why she wouldn't be a surgical candidate so we can make note when we call to schedule her? ----- Message ----- From: Patricia Butterfield MD Sent: 07/29/2020 9:47 AM EST To: Iman Marcano APRN, Loyda Wong Subject: RE: new patient evaluation Sure. ----- Message ----- From: Iman Marcano APRN Sent: 07/29/2020 9:38 AM EST To: Patricia Butterfield MD, Loyda Wong Subject: new patient evaluation I saw this patient today as a new bariatric and I don't think she is a surgical candidate but she would like to talk to a surgeon, can you set that up? Thanks! Iman documented in this encounter Plan of Treatment Upcoming Encounters Date Type Specialty Care Team Description 03/15/2022 Office Visit Neurology Ryann Barfield APRN [facility] [address] [place], [place] [address] 03/23/2022 Appointment Radiology Hailey Mcclendon MD [facility] [address] [place] [address] 03/23/2022 Laboratory Appointment Lab 03/23/2022 Office Visit Gastroenterology Hailey Mcclendon MD [facility] [address] [place] [address] 05/23/2022 Procedure visit Maxillofacial Surgery Corby Montes MD [facility] [address], [place] [address] documented as of this encounter [...] consider eating biggest troy l mid day, district resource officer dinner, try not to eat after dinner-try [...] track (08/26/2020 9:40 AM EST) Iman Hannon, STUDENT TEACHING COORDINATOR Note: Formatting of this note might be d ifferent from the original. Try just getting up at least once an luda r Recommend resistance training 3 times a week -can use your weights- 08/26/20- not on track with this, will work on it. sleep Lifestyle On track (08/26/2020 9:43 AM EST) Iman Hannon, STUDENT TEACHING COORDINATOR Note: Formatting of this note might be d ifferent from the original. Try to be consistent with sleep. Goal 7 hours of sleep nightly. Recommend consistent sleep and wake time s, avoid electronics within one hour of sleep time Continue C pap stress Lifestyle On track (08/26/2020 9:40 AM EST) Iman Hannon, STUDENT TEACHING COORDINATOR Note: Formatting of this note might be d ifferent from the original. Mindfulness/deep breathing practice to r educe cortisol -try for at least 10 minutes a day Continue counseling documented as of this encounter Visit Diagnoses Not on filedocumented in this encounter Care Teams Toy Electric Train Repairer Relationship Specialty Start Date End Date Albert Zuleta MD PCP - General Family Medicine 01/17/17 10/26/21 [address] [place] [address] documented as of this encounter
--- OUTSIDE RECORDS SUMMARY | 2022-02-08 01:50 | XMS_ITS | Encounter Summary ---
:1960 Author Organization [facility] [place] [address] Care Team Providers Name Role Phone Albert Zuleta MD Primary Care Provider Encounter Details Date Type Department Care Team Description 07/22/2020 Notes Only Weight and Wellness at [facility] [address] [place] [address] Social History Tobacco Use Types Packs/Day [...] documented as of this encounter Progress Notes Blossom Almeida T - 07/22/2020 1:45 PM EST [facility] New Patient Referral Chart Prep Note Blossom Samayoa 1960 Referring Provider: Regina Goldsmith [x] [facility] referral (Epic) [] External Referral (scanned document) Referral documents available [x] Referral [x] Most recent PCP note or care summary - date: 06/15/2020 [x] Labs [] in Epic [x] Scanned / [x] Entered into EPIC [] Imaging [] in Epic [] Scanned / Type and date: Requested today: Chart Prep [x] Height [x] Added to sticky [x] Weight [x] Added to sticky For Bariatric Surgery Referral [x] BSP Start weight: 311 [x] Add to sticky [x] Information session attended / date: 03/26/2020 [x] BSP Checklist documented in this encounter Plan of Treatment Upcoming Encounters Date Type Specialty Care Team Description 03/15/2022 Office Visit Neurology Ryann Barfield APRN [facility] [address] [place] [place], [place] [address] 03/23/2022 Appointment Radiology Hailey Mcclendon MD [facility] [address] [place] [address] 03/23/2022 Laboratory Appointment Lab 03/23/2022 Office Visit Gastroenterology Hailey Mcclendon MD [facility] [address] [place] [address] 05/23/2022 Procedure visit Maxillofacial Surgery Corby Montes MD [facility] [address] [place] [address] documented as of this encounter Visit Diagnoses Not on filedocumented in this encounter Care Teams Corrective And Manual Arts Therapist Relationship Specialty Start Date End Date Albert Zuleta MD PCP - General Family Medicine 01/17/17 10/26/21 [place] [id number] documented as of this encounter
--- OUTSIDE RECORDS SUMMARY | 2022-02-08 01:50 | XMS_ITS | Encounter Summary ---
:1960 Author Organization [facility] [place] [address] Care Team Providers Name Role Phone Albert Zuleta MD Primary Care Provider Encounter Details Date Type Department Care Team Description 01/22/2020 Orders Only Cardiology at [facility] [place], Other cardiomyopathy [facility] MD Shaq (Primary Dx) [facility] [id number] CARDIOLOGY DEPT [phone] [place], [place] [address] Social History Tobacco Use Types Packs/Day Years [...] Office Visit Neurology Ryann Barfield, [facility] [address] [place], [place] [address] 03/23/2022 Appointment Radiology Hailey Mcclendon MD [facility] [address] [place] [address] 03/23/2022 Laboratory Appointment Lab 03/23/2022 Office Visit Gastroenterology Hailey Mcclendon MD [facility] [address] [place] [address] 05/23/2022 Procedure visit Maxillofacial Surgery Corby Montes MD [facility] [address] [address] documented as of this encounter Visit Diagnoses Diagnosis Other cardiomyopathy - Primary documented in this encounter Care Teams General Ophthalmologist Relationship Specialty Start Date End Date Albert Zuleat MD PCP - General Family Medicine 01/17/17 10/26/21 [place] [address] documented as of this encounter
--- OUTSIDE RECORDS SUMMARY | 2022-02-08 01:50 | XMS_ITS | Encounter Summary ---
:1960 Author Organization [facility] [place] [address] Care Team Providers Name Role Phone Albert Zuleta MD Primary Care Provider Encounter Details Date Type Department Care Team Description 12/30/2019 Office Visit Urology at [facility] Maribeth Valdez, Nephrolithiasis; [facility] Sarcoidosis of lung; [facility] Hypercalcemia; [place], [place] Hyperparathyroidism, primary; [phone] NEPHR[address] DEPT. Type 2 diabetes mellitus with diabetic n europathy, without long-term current use of insulin [phone] [place], [place] [address] Social History Tobacco Use Types [...] documented as of this encounter Progress Notes Maribeth Valdez MD - 12/30/2019 11:30 AM EDT Images from the original note were not included. I had the pleasure of seeing your patient Kristopher Pacheco 1960 [id number] Chief Complaint: This is a multidisciplinary metabolic stone clinic visit for this 59 y.o. year old woman History of Present Illness/Recent events including relevant review of systems: Kristopher Pacheco reports that she passed stones in October and November 2019. Currently asymptomatic. ?? HIstory of calcium oxalate stones 2018. ?? Primary hyperparathyroidism s/p parathyroidetomy 07/2019. Passed stone fragments November 2019 none since. Serum calcium 10.1. Does not take supplemental calcium. Occasional D3 for neuropathy, doesnot know dose Please see ' note for detailed urologic history. 24-hour urine studies are reviewed with the patient (see details below) ?? Primary hyperparathyroidism resection L lower parathyroid gland 08/12/2019 with confirming fall intraoperative PTH 70 to 7 ( Dr Mcmahon) - non-localizing* PTH scan. ?? Sarcoidosis Pulmonary sarcoid diagnosed 1991 Treated with prednisone 18 months, liver Bx 2019 non-caseating granulomata. Currently Asymptomatic ?? 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 on trulicity, glipizide, metformin. Does not check glucose at home. No identified retinopathy. Peripheral neuropathy feet.Discussed complications. Encouraged to monitor glucose. Follow up with PCP ?? Obesity ?? Normal serum creatinine, likely hyperfiltration. Will check urine albumin:creatinine ratio at next visit ?? l Patient Active Problem List Diagnosis Code ??? Cardiomyopathy I42.9 ??? Type 2 diabetes mellitus, without long-term current use of insulin E11.9 ??? History of herpes simplex infection Z86.19 ??? LBBB (left bundle branch block) I44.7 ??? Morbid obesity with BMI of 50.0-59.9, adult E66.01, Z68.43 ??? Sarcoidosis D86.9 ??? [...] ??? Abscess L02.91 ??? Hyperparathyroidism, primary E21.0 Medications Current Outpatient Medications on File Prior to Visit Medication Sig Dispense Refill ??? carvediloL (Coreg) 12.5 mg Tablet Take 25 mg by mouth 2 times daily (with meals). Take 2 tabletstwice daily; increase ??? amitriptyline (Elavil) 50 mg Tablet Take 50 mg by mouth nightly. ??? CALCIUM CITRATE ORAL Take 600 mg by mouth 2 times daily. ? ? lactobacillus acidophilus & bulgar 1 million cell Tablet, Chewable CHEW ONE TABLET BY MOUTH EVERY DAY ??? ibuprofen (Advil;Motrin) 600 mg Tablet Take 1 tablet by mouth every 6 hours as needed for Pain. 30 tablet 12 ??? metFORMIN (GLUCOPHAGE) 500 mg Tablet Take 500 mg by mouth 2 times daily (with meals). ??? acetaminophen (TYLENOL) 500 mg Tablet Take 1,000 mg by mouth every 6 hours as needed for Pain. ??? cholestyramine (QUESTRAN) 4 gram Powder Take by mouth 3 times daily (with meals). ??? acyclovir (ZOVIRAX) [...] SUBQ) Inject subcutaneously once a week. ??? HYDROcodone-acetaminophen (NORCO) 5-325 mg Tablet Take 1 tablet by mouth 2 times daily. ??? aspirin 81 mg Tablet, Chewable Take 81 mg by mouth daily. 30 tablet 3 ??? levalbuterol (XOPENEX HFA) 45 mcg/actuation HFA Aerosol Inhaler INHALE TWO PUFFS BY MOUTH EVERY 4 TO 6 HOURS NEEDED 3 ??? INCRUSE ELLIPTA 62.5 mcg/actuation Disk with Device INHALE ONE PUFF BY MOUTH EVERY DAY 5 ??? loratadine (CLARITIN) 10 mg Tablet TAKE ONE TABLET BY MOUTH EVERY DAY NEEDED 3 ??? gabapentin (NEURONTIN) 600 mg Tablet TAKE ONE TABLET BY MOUTH THREE TIMES A DAY 1 ??? spironolactone (ALDACTONE) 25 mg Tablet TAKE ONE TABLET BY MOUTH EVERY DAY 3 ??? lisinopril (PRINIVIL;ZESTRIL) 5 mg Tablet TAKE ONE TABLET BY MOUTH DAILY 3 No current facility-administered medications on file prior to visit. Non-steroidal anti-inflammatory medications: None Past Medical History, Family and Social History Reviewed in CIS and/or paper chart Physical Exam Kristopher Pacheco appears well Vitals 09/25/2019 08/13/2019 08/13/2019 08/13/2019 BP 119/51 119/51 137/74 BP Location Pulse 66 66 64 Temp 97.9 98.1 Resp 20 18 Height (Faroese) Height (Metric) Weight (Faroese) 298 lbs 288 lbs 14 oz Weight (Metric) 135.172 kg 131.044 kg BMI (Calculated) Pulse Oximetry 97 98 FiO2 (%) O2 Flow Rate (L/min) O2 Device RA RA BSA Vitals 08/12/2019 08/12/2019 BP 129/52 131/64 BP Location Left arm Pulse 69 Temp 98.1 Resp 18 Height (Faroese) Height (Metric) Weight (Faroese) Weight (Metric) BMI (Calculated) Pulse Oximetry 97 FiO2 (%) O2 Flow Rate (L/min) O2 Device RA BSA There is no uremic fetor and no asterixis. The oropharynx and neck are unremarkable There is trace peripheral edema at the ankles The chest is clear to auscultation posteriorly R = L. The heart sound are S1 plus S2 with no rubs, murmurs or gallops. The abdomen is obese, soft and nontender Laboratory and other data: Results for KRISTOPHER PACHECO ( ) as of 12/30/2019 11:05 Ref. Range 08/13/2019 06:49 09/25/2019 10:07 Sodium Latest Ref Range: 135 - 145 mmol/L 139 Potassium Latest Ref Range: 3.5 - 5.0 mmol/L 4.4 Chloride Latest Ref Range: 98 - 107 mmol/L 101 CO2 Latest Ref Range: 22 - 31 mmol/L 21 (L) Anion Gap Latest Ref Range: 5 - 15 mmol/L 17 (H) BUN Latest Ref Range: 8 - 18 mg/dL 14 Creatinine Latest Ref Range: 0.70 - 1.20 mg/dL 0.72 eGFR Latest Ref Range: >=60 mL/min/1.73 m?? 92 eGFR Latest Ref Range: >=60 mL/min/1.73 m?? 106 Calcium Latest Ref Range: 8.5 - 10.5 mg/dL 10.1 Phosphorus Latest Ref Range: 2.5 - 4.5 mg/dL 3.7 Glucose Lvl Latest Ref Range: 65 - 199 mg/dL 262 (H) POC Glucose Latest Ref Range: 65 - 199 mg/dL 157 Total Protein Latest Ref Range: 6.1 - 8.0 gm/dL 7.9 Albumin Latest Ref Range: 3.2 - 5.2 gm/dL 4.7 Total Bilirubin Latest Ref Range: 0.2 - 1.3 mg/dL 0.9 Alk Phos Latest Ref Range: 35 - 105 unit/L 100 AST Latest Ref Range: 0 - 30 unit/L 42 (H) ALT Latest Ref Range: 0 - 30 unit/L 38 (H) Urine culture, normal rasta 24 hour urine data Repeat study is pending ?Radiology studies: Images personally reviewed Renal ultrasound today 12/30/2019 RIGHT KIDNEY: Size (cm) L: 12.7 Cortical Thickness: Normal Cortical Echogenicity: Normal Hydronephrosis: No sonographic evidence ?? Comment: Simple cyst, cortical, mid 11 x 7 x 7 mm ?? LEFT KIDNEY: Size (cm) L: 12.8 Cortical Thickness: Normal Cortical Echogenicity: Normal Hydronephrosis: No sonographic evidence URINARY BLADDER: Comment: Partially distended, normal contour ?? IMPRESSION ?? 1. No renal calculus or hydronephrosis bilaterally. 2. Normal contour of the partially distended urinary bladder. Diagnosis, Medical decision making and Recommendations: 1. 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 Undedrlying sarcoidosis. Follow up 24 hour urine study is ordered 2. Diabetes mellitus type II uncontrolled with neuropathy. Discussed complications. Encouraged to monitor glucose. Follow up with PCP 3. Obesity 4. Normal serum creatinine, likely hyperfiltration. Will check urine albumin:creatinine ratio at next visit 5. Followup stone clinic per urology. Labs ordered via eDH Thank you for involving me in the care of this interesting patient CC: Albert Zuleta MD @[email or web address]@ documented in this encounter Plan of Treatment Upcoming Encounters Date Type Specialty Care Team Description 03/15/2022 Office Visit Neurology Ryann Barfield APRN [facility] NEUROLOGY [place], [place] [address] 03/23/2022 Appointment Radiology Hailey Mcclendon MD [facility] [address] [place] [address] 03/23/2022 Laboratory Appointment Lab 03/23/2022 Office Visit Gastroenterology Hailey Mcclendon MD [facility] [address] [place] [address] 05/23/2022 Procedure visit Maxillofacial Surgery Corby Montes MD [facility] [address] [place], [place] [address] documented as of this encounter Visit Diagnoses Diagnosis Nephrolithiasis Calculus of kidney Sarcoidosis of lung Sarcoidosis Hypercalcemia Hyperparathyroidism, primary Primary hyperparathyroidism Type 2 diabetes mellitus with diabetic n europathy, without long-term current use of insulin documented in this encounter Care Teams Straightener And Aligner Relationship Specialty Start Date End Date Albert Zuleta MD PCP - General Family Medicine 01/17/17 10/26/21 [address] [place] [address] documented as of this encounter
--- OUTSIDE RECORDS SUMMARY | 2022-02-08 01:50 | XMS_ITS | Encounter Summary ---
:1960 Author Organization [facility] [address] Care Team Providers Name Role Phone Albert Zuleta MD Primary Care Provider Encounter Details Date Type Department Care Team Description 03/22/2020 Orders Only Urology at [facility] Crow Galvin Lower urinary tract [facility] MD Megan symptoms ([place]UTS) [place] [address] UROLOGY DEPT. [place], [place] [address] Social History Tobacco Use Types [...] 03/15/2022 Office Visit Neurology Ryann Barfield, [facility] [address] [place], [place] [address] 03/23/2022 Appointment Radiology Hailey Mcclendon MD [facility] [place] [address] 03/23/2022 Laboratory Appointment Lab 03/23/2022 Office Visit Gastroenterology Hailey Mcclendon MD [facility] [place] [address] 05/23/2022 Procedure visit Maxillofacial Surgery Corby Montes MD [facility] [address] [place] [address] documented as of this encounter Visit Diagnoses Diagnosis Lower urinary tract symptoms (LUTS) Other symptoms involving urinary system documented in this encounter Care Teams Delivery Rep Relationship Specialty Start Date End Date Albert Zuleta MD PCP - General Family Medicine 01/17/17 10/26/21 [place] [address] documented as of this encounter
--- OUTSIDE RECORDS SUMMARY | 2022-02-08 01:50 | XMS_ITS | Encounter Summary ---
:1960 Author Organization [facility] [address] Care Team Providers Name Role Phone Albert Zuleta MD Primary Care Provider Encounter Details Date Type Department Care Team Description 01/05/2020 Orders Only Urology at [facility] Crow Galvin Lower urinary tract [facility] MD Megan symptoms (LUTS) [place] [address] UROLOGY DEPT. [place], [place] [address] Social History Tobacco Use Types [...] 03/15/2022 Office Visit Neurology Ryann Barfield, [facility] [address] [place], [place] [address] 03/23/2022 Appointment Radiology Hailey Mcclendon MD [facility] [place] [address] 03/23/2022 Laboratory Appointment Lab 03/23/2022 Office Visit Gastroenterology Hailey Mcclendon MD [facility] [place] [address] 05/23/2022 Procedure visit Maxillofacial Surgery Corby Montes MD [facility] [address] [place] [address] documented as of this encounter Visit Diagnoses Diagnosis Lower urinary tract symptoms (LUTS) Other symptoms involving urinary system documented in this encounter Care Teams Meat Cutting Block Repairer Relationship Specialty Start Date End Date Albert Zuleta MD PCP - General Family Medicine 01/17/17 10/26/21 [place] [address] documented as of this encounter
--- OUTSIDE RECORDS SUMMARY | 2022-02-08 01:50 | XMS_ITS | Encounter Summary ---
:1960 Author Organization [facility] [place] [address] Care Team Providers Name Role Phone Albert Zuleta MD Primary Care Provider Encounter Details Date Type Department Care Team Description 01/11/2020 Telephone Urology Stephen Fernandez MD [facility] [place] [address] UROLOGY DEPT [phone] [place], [place] [address] (Wo rk) Social History Tobacco [...] this encounter Miscellaneous Notes Telephone Encounter - Stephen Fernandez MD - 01/11/2020 10:05 AM EDT Called [facility] for urine culture [phone] Connected to micro lab, the tech has stepped out at this time. Spoke with lab medical secretary receptionist who will faxit to us at [phone] Klebsiella pneumoniae Amp R Amp-Sul S Cefaz S Ceftri S Cipro S Gent S Nitrofur I Imip S Levoflox S Tobra S Trimethoprim/Sulfa S Piperacillin/Tazo S Called to discuss with patient. Urine is dark, no symptoms. No burning with urination. Says she experiences a tingling in the bladder once in a while. No fevers. No flank pain. Altogether she is feeling well. Recommended no treatment at this time due to lack of any symptoms, she will let us know if this changes in which case I would recommend treatment. documented in this encounter Plan of Treatment Upcoming Encounters Date Type Specialty Care Team Description 03/15/2022 Office Visit Neurology Ryann Barfield APRN [facility] [address] [place] [place], [place] [address] 03/23/2022 Appointment Radiology Hailey Mcclendon MD [facility] [place] [address] 03/23/2022 Laboratory Appointment Lab 03/23/2022 Office Visit Gastroenterology Hailey Mcclendon MD [facility] [place] [address] 05/23/2022 Procedure visit Maxillofacial Surgery Corby Montes MD [facility] [address] [place] [address] documented as of this encounter Visit Diagnoses Not on filedocumented in this encounter Care Teams Rf Technician Relationship Specialty Start Date End Date Albert Zuleta MD PCP - General Family Medicine 01/17/17 10/26/21 [place] [address] documented as of this encounter
--- OUTSIDE RECORDS SUMMARY | 2022-02-08 01:51 | XMS_ITS | Encounter Summary ---
:1960 Author Organization [facility] [place] [address] Care Team Providers Name Role Phone Albert Zuleta MD Primary Care Provider Reason for Referral Diagnostic Test (Routine) - Closed Specialty Diagnoses / Procedures Referred By Contact Refer red To Contact Cardiology Diagnoses Cardiomyopathy, unspecified type Joni Drew MD [facility] Non-Inv Card Lab Procedures Echocardiogram Transthoracic([facility]) [facility] Dr [facility] [place] [address] [place] [address] Fax: Referral ID Status Reason Start Date Expiration Date Visits V isits Requested Authorized [id number] Closed Specialty 11/06/2019 11/05/2020 1 1 Service Requested Encounter Details Date Type Department Care Team Description 11/06/2019 TH Visit Cardiology at [facility] Rajendra, Cardiomyopathy, unspecified type; (TeleHealth) [facility] Joni Akhtar MD ASCVD (arteriosclerotic cardiovascular d isease); [facility] [phone] Cardiology [phone] [place] [address] Social History Tobacco Use Types Packs/Day Years [...] Patient Instructions Patient InstructionsDaJoni rubio MD - 11/06/2019 4:40 PM EDT - Needs TTE in next 1-2 months - f/u with me in 6 months documented in this encounter Progress Notes Joni Drew MD - 11/06/2019 4:40 PM EDT Cardiology Clinic Note CC: CHF Patient Name: Blossom Samayoa HPI: 58 yr old woman with a medical history notable for non-ischemic cardiomyopathy, HTN, MOSES on CPAP, COPD, diabetes, IBS, nephrolithiasis, hyperparathyroidism s/p parathyroidectomy, and an abdominal wall hernia s/p surgical repair. States that she is feeling good and is all healed up now. Feels as though my heart is fine. Nochest pain or discomfort. States that her breathing is fine and notes that her pulmonary symptoms have improved significantly since quitting smoking. States that she can take care of herself and her home right now. No concerns about exertional symptoms. She does recall being told that her LV function was impaired on her echocardiogram; states that she notices nothing different and denies any new symptoms. BP has been well controlled recently. Denies orthopnea, PND, edema, or recent weight gain. Compliant with CPAP. Social Hx: - Lives in [place], [place] - Tobacco: Former smoker; quit 2017 [...] ??? Abscess L02.91 ??? Hyperparathyroidism, primary E21.0 Current Outpatient Medications: ??? amitriptyline (Elavil) 50 mg Tablet, Take 50 mg by mouth nightly., Disp: , Rfl: ??? CALCIUM CITRATE ORAL, Take 600 mg by mouth 2 times daily., Disp: , Rfl: ? ? lactobacillus acidophilus & bulgar 1 million cell Tablet, Chewable, CHEW ONE TABLET BY MOUTHEVERY DAY, Disp: , Rfl: ??? ibuprofen (Advil;Motrin) 600 mg Tablet, Take 1 tablet by mouth every 6 hours as needed for Pain., Disp: 30 tablet, Rfl: 12 ??? metFORMIN (GLUCOPHAGE) 500 mg Tablet, Take 500 mg by mouth 2 times daily (with meals)., Disp: , Rfl: ??? acetaminophen (TYLENOL) 500 mg Tablet, Take 1,000 mg by mouth every 6 hours as needed for Pain.,Disp: , Rfl: ??? cholestyramine (QUESTRAN) 4 gram Powder, Take by mouth 3 times daily (with meals)., Disp: , Rfl: [...] Take 1 tablet by mouth 2 times daily., Disp: , Rfl: ??? aspirin 81 mg [...] EVERY DAY, Disp: , Rfl: 3 ??? carvedilol (COREG) 3.125 mg Tablet, TAKE ONE TABLET BY MOUTH TWICE A DAY, Disp: , Rfl: 3 ??? lisinopril (PRINIVIL;ZESTRIL) 5 mg Tablet, TAKE ONE TABLET BY MOUTH DAILY, Disp: , Rfl: 3 EKG (08/28/2018): Sinus, LBBB, HR: 79 BPM Diagnostic Studies: TTE (12/2018) 1. Global left ventricular systolic [...] ASSESSMENT: Ms. Samayoa is a very nice 58 yr old woman with morbid obesity, hypertension, MOSES, COPD, diabetes, IBS, nephrolithiasis s/p ureteral stent, and abdominal wall abscess s/p long complicated hospitalization last summer. From a CV perspective, she reports that she is currently doing well and denies any new issues or complaints. Back is December 2018, she had a TTE which demonstrated that he LVEF was severelyreduced at 30% (down from 45% previously) though this was in the context of serious medical illness.She has been on GDMTs for almost a year now and sounds stable from a cardiac perspective--- no edema, orthopnea, PND, chest discomfort, or LIM. I would like to repeat a TTE MELISSA to re-evaluate her LV fu nction. If her LV function has not improved despite GDMTs (BB, EDUARDA-I, shaun), she would be a candidate for COMPUTER SYSTEMS ADMINISTRATOR-D given her baseline LBBB. She reports that she had a traumatic experience here after a recent surgery and is currently in therapy as a consequence. She is not sure she wants to continue to receive care here but seemed open to the idea of getting a TTE. We discussed possibly moving her care to [facility] (Dr. Ndiaye) which is closer to home. She is going to consider this option. PLAN: # Cardiomyopathy, non-ischemic - Last TTE was 2009; LVEF was 45%--> 30% (12/2018) - Continue carvedilol 3.125 mg BID, lisinopril 5 mg daily, and spironolactone - Needs repeat TTE; may be a COMPUTER SYSTEMS ADMINISTRATOR-D candidate - She would prefer to do this in [facility] which is closer to home - May consider transferring her cardiac care to [facility] # ASCVD, non-obstructive - Continue atorvastatin, ASA # Hypertension, controlled - Will continue to monitor Joni Drew MD, FACP, FACC Section of Cardiovascular Medicine [facility] Poultry Farmworkerartist's model [facility] [employer] [facility] documented in this encounter Plan of Treatment Upcoming Encounters Date Type Specialty Care Team Description 03/15/2022 Office Visit Neurology Ryann Barfield APRN [facility] NEUROLOGY [place], [place] [address] 03/23/2022 Appointment Radiology Hailey Mcclendon MD [facility] [address] [place] [address] 03/23/2022 Laboratory Appointment Lab 03/23/2022 Office Visit Gastroenterology Hailey Mcclendon MD [facility] [place] [address] 05/23/2022 Procedure visit Maxillofacial Surgery Cobry Montes MD [facility] [address] [place] [address] documented as of this encounter Results ECHOCARDIOGRAM COMPLETE W CONTRAST (12/30/2019 2:21 PM EDT) P athologist Signature EF 54 HEARTLAB SYSTEM Specimen (Source) Anatomical Location Collection Method / Collectio n Time Received Time / Laterality Volume 12/30/2019 Narrative HEARTLAB SYSTEM - 12/30/2019 2:37 PM EDT Procedure: ?Transthoracic Echocardiogram Patient: ?TARA Ray ?(Age): 1960(59y) Med Rec#: ? [id number] ?Sex: ?F ? Site Loc: ? [facility] ?Ht / Wt: ??168(cm)/135(kg) Pt. Loc: ?Echo Lab ?BSA: ?2.37 Study Date: ?? 12/30/2019 ?Pt. Type: Outpatient Tape: ? Referring: HARMEET Reading: Leonel Miller ([id number]) Gas Line Installer Supervisor: Latoya Barcenas Gas Line Installer Supervisor: Patricia Escobar Street Openings Inspector: Kentrell Candelario MARLA Diagnosis: *Cardiomyopathy, unspecified (I42.9) BP: ? 153/88 [...] 6. When compared to the prior 01/05/19 [facility], global LV function has improved (EF=30%-->54%), and [...] Mitral Valve: ? The mitral valve liza flemadalyn are mildly thickened. ?There is posterior mitral [...] cm ?The ascending aorta is normal in s ize. Venous: ? The inferior vena cava is [...] Vmax ?1.03 ? m/sec ? MV deceleration [id number] ?msec ? MV A-wave Vmax ?1.03 ? [...] ? Mid-Inferior ?Akinetic ? Mid-Inferoseptal ?Akinetic ? Sebec-Septal ? Akinetic ? Sebec-Anterior ? Hypokinetic ? Sebec-Lateral ?Normal ? Sebec-Inferior ? Akinetic ? Sebec-Tip ?Hypokinetic ? This report has been electronically sign ed by: _ Leonel Miller MD ? 12/30/2019 14:36: 44 Images reviewed and interpretation brian mcleod [facility] Cardiac Ultrasound Laboratory Procedure Note Leonel Miller MD - 12/30/2019 Procedure: Transthoracic Echocardiogram Patient: TARA Ray (Age): (59y) Med Rec#: [id number] Sex: F Site Loc: [facility] Ht / Wt: 168(cm)/135(kg) Pt. Loc: Echo Lab BSA: 2.37 Study Date: 12/30/2019 Pt. Type: Outpati ent Tape: Referring: HARMEET Reading: Leonel Miller. ([id number]) Gas Line Installer Supervisor: Latoya Barcenas Gas Line Installer Supervisor: Patricia Escobar Street Openings Inspector: Kentrell Candelario [facility] Diagnosis: *Cardiomyopathy, unspecified (I42.9) BP: 153/88 SUMMARY: [...] 6. When compared to the prior 01/05/19 [facility], global LV function has improved (EF=30%-->54%), and the lateral and apical wall motion abnormalities have improved, with persis tent septal wall motion abnormalities. Findings : Study Quality: Technically limited Left Ventricle: The left ventricular amiee mber size is normal. Basal septal hypertrophy [...] MV E-wave Vmax 1.03 m/sec MV deceleration [id number] msec MV A-wave Vmax 1.03 m/sec MV [...] Normal Mid-Posterolateral Normal Mid-Inferior Akinetic Mid-Inferoseptal Akinetic Sebec-Septal Akinetic Sebec-Anterior Hypokinetic Sebec-Lateral Normal Sebec-Inferior Akinetic Sebec-Tip Hypokinetic This report has been electronically sign ed by: _ Leonel Miller MD 12/30/2019 14:36:44 Images reviewed and interpretation brian mcleod [facility] Cardiac Ultrasound Laboratory Joni Drew MD ECHO ORDERABLES Performing Organization Address City/State/ZIP Code Phon e Number HEARTLAB SYSTEM documented in this encounter Visit Diagnoses Diagnosis Cardiomyopathy, unspecified type ASCVD (arteriosclerotic cardiovascular d isease) Unspecified cardiovascular disease Essential hypertension Unspecified essential hypertension Cardiomyopathy, unspecified type documented in this encounter Care Teams Hat Presser Relationship Specialty Start Date End Date Albert Zuleta MD PCP - General Family Medicine 01/17/17 10/26/21 [address] [place] [address] documented as of this encounter
--- OUTSIDE RECORDS SUMMARY | 2022-02-08 01:51 | XMS_ITS | Encounter Summary ---
:1960 Author Organization [place] [address] Care Team Providers Name Role Phone Albert Zuleta MD Primary Care Provider Encounter Details Date Type Department Care Team Description 07/01/2019 Office Visit Urology at [facility] Alexandru Akers Recurrent [facility] nephrolithiasis [facility] [address] NEPHROLOGY DEPT. [phone] [place] [id number] Social History Tobacco Use Types Packs/Day Years [...] encounter Progress Notes Alexandru Akers MD - 07/01/2019 4:30 PM EST 58 y/o woman for follow up of calcium oxalate/calcium phosphate nephrolithiasis The patient was last seen in December for mixed calcium nephrolithiasis, since then she had serious health problems with septic shock requiring laporatory and small bowel resection complicated by abdominalabscess, she also is being worked up for hepatomegaly with a differential including recurrence of prior sarcoidosis and infiltrative disease and had a liver biopsy today The patient has not had any stone episode since her last visit, no new 24 hr urine data is available The patient feels tired after her procedure, no dysuria or hematuria reported A March CT does not show any nephrolithiasis Medications: Current Outpatient Medications: ??? metFORMIN (GLUCOPHAGE) 500 mg Tablet, Take [...] EVERY DAY NEEDED, Disp: , Rfl:1 ??? amitriptyline (ELAVIL) 25 mg Tablet, Take 25 mg by mouth nightly., Disp: , Rfl: ??? nitroGLYcerin (NITROSTAT) 0.4 mg Tablet, Sublingual, Place 0.4 mg under the tongue every 5 minutes as needed for Chest pain., Disp: , Rfl: ??? lactobacillus rhamnosus, GG, (CULTURELLE) 10 billion cell Capsule, Take 1 capsule by mouth daily., Disp: , Rfl: ??? diclofenac (VOLTAREN) 1 [...] BY MOUTH DAILY, Disp: , Rfl: 3 No current facility-administered medications for this visit. Allergies Allergen Reactions ??? Ketamine Other (See Comments) Hallucinations ??? Anafranil [Clomipramine] Other (See Comments) give me the flu ??? Augmentin [Amoxicillin-Pot Clavulanate] Hives and Itching ??? Erythromycin Hives and Itching ??? Macrobid [Nitrofurantoin Monohyd/M-Cryst] Other (See Comments) Causes depression ??? Sulfa (Sulfonamide Antibiotics) Hives Physical exam: BP 150/73 HR 69 Obese Lungs clears Heart regular rhythm, no rub, no murmur No costophremic angle tenderness Abdomen soft, non tender Limbs trace edema Labs: Results for KRISTOPHER PACHECO MAKENNA ( ) as of 07/01/2019 18:14 Ref. Range 06/13/2019 15:45 07/01/2019 07:43 Platelets Latest Ref Range: 145 - 357 x10(3)/mcL 233 Plat Immature % Latest Ref Range: 0.0 - 7.4 % 2.2 PT Latest Ref Range: 9.4 - 12.5 sec 12.2 INR Unknown 1.0 Total Protein Latest Ref Range: 6.1 - 8.0 gm/dL 8.4 (H) Albumin Latest Ref Range: 3.2 - 5.2 gm/dL 4.9 Total Bilirubin Latest Ref Range: 0.2 - 1.3 mg/dL 0.9 Bili, Direct Latest Ref Range: 0.0 - 0.3 mg/dL 0.2 Alk Phos Latest Ref Range: 35 - 105 unit/L 134 (H) AST Latest Ref Range: 0 - 30 unit/L 23 ALT Latest Ref Range: 0 - 30 unit/L 28 Total Prot Elec Latest Ref Range: 6.1 - 8.0 gm/dL 7.9 Albumin Elect Latest Ref Range: 3.60 - 6.00 gm/dL 5.07 Alpha1-Globulin Latest Ref Range: 0.10 - 0.30 gm/dL 0.11 Alpha2-Globulin Latest Ref Range: 0.40 - 0.90 gm/dL 0.92 (H) Beta Globulin Latest Ref Range: 0.50 - 1.00 gm/dL 0.88 Gamma Globulin Latest Ref Range: 0.50 - 1.30 gm/dL 0.91 M1 Band Latest Ref Range: None Detected None Detected IgA Latest Ref Range: 70 - 400 mg/dL 321 TTG IgA Ab Latest Ref Range: 0.1 - 10.0 u/ml 0.7 HepB Surface Ab Quant Latest Units: IU/L <3.5 HepB Surface Ab Unknown Negative HepB Surface Ag Latest Ref Range: Negative Negative Hep B Core IgM Latest Ref Range: Negative Negative Hepatitis C Ab Latest Ref Range: Negative Negative A/P: Patient with mixed calcium stones with no nephrolithiasis on recent imaging and no recent stone episode, no new data available as the patient is busy with other health problems Risk factors for stone recurrence were discussed, recommended to drink 2.5 liters or more of water per day RTC with 24hr urine collection and ultrasound Recommend to cancel the planned parathyroid exploration until patient recovered from current health issues and new lab data is available Discussed with the team documented in this encounter Plan of Treatment Upcoming Encounters Date Type Specialty Care Team Description 03/15/2022 Office Visit Neurology Ryann Barfield, [facility] [address] [place], [place] [address] 03/23/2022 Appointment Radiology Hailey Mcclendon MD [facility] [address] [place] [address] 03/23/2022 Laboratory Appointment Lab 03/23/2022 Office Visit Gastroenterology Hailey Mcclendon MD [facility] [address] [place] [address] 05/23/2022 Procedure visit Maxillofacial Surgery Corby Montes MD [facility] [address] [place], [place] [address] documented as of this encounter Visit Diagnoses Diagnosis Recurrent nephrolithiasis Calculus of kidney documented in this encounter Care Teams Reliability Technologist Relationship Specialty Start Date End Date Albert Zuleta MD PCP - General Family Medicine 01/17/17 10/26/21 [place] [address] documented as of this encounter
--- OUTSIDE RECORDS SUMMARY | 2022-02-08 01:51 | XMS_ITS | Encounter Summary ---
:1960 Author Organization [facility] [place] [address] Care Team Providers Name Role Phone Albert Zuleta MD Primary Care Provider Encounter Details Date Type Department Care Team Description 12/30/2019 Hospital Encounter [facility] [facility] Meghana Galvin Nephrolithiasis; [facility] MD Megan Hepatic cirrhosis, unspecified hepatic c irrhosis type, unspecified whether ascites present [address] [place], [place] [address] UROLOGY DEPT. [phone] [place] [address] Social History Tobacco Use Types Packs/Day Years [...] 03/15/2022 Office Visit Neurology Ryann Barfield, [facility] [address] [place] [address] 03/23/2022 Appointment Radiology Hailey Mcclendon MD [facility] [address] [place] [address] 03/23/2022 Laboratory Appointment Lab 03/23/2022 Office Visit Gastroenterology Hailey Mcclendon MD [facility] [place] [address] 05/23/2022 Procedure visit Maxillofacial Surgery Corby Montes MD [facility] [address] [place] [address] documented as of this encounter Procedures Procedure Name Priority Date/Time Associated Diagnosis Comme nts US ABDOMEN LIMITED Routine 12/30/2019 10:54 Hepatic cirrhosis, Results for this HEPATOLOGY PROTOCOL AM EDT unspecified hepatic p rocedure are in cirrhosis type, the results unspecified whether section. ascites present US RETROPERITONEAL Routine 12/30/2019 10:54 Nephrolithiasis Re sults for this COMPLETE AM EDT procedure are i n the results section. documented in this encounter Results US Abdomen Limited Hepatology Protocol (12/30/2019 10:54 AM EDT) Anatomical Region Laterality Modality Abdomen Ultrasound Specimen (Source) Anatomical Collection Method Collection Time Re ceived Time Location / / Volume Laterality 12/30/2019 10:41 AM EDT Impressions 12/30/2019 11:33 AM EDT 1. ??Hepatomegaly. ?? Diffuse increased echogenicity of the enlarged liver consistent with chronic liver disease/s teatosis and hepatomegaly. No focal lesion. 2. ??Surgically absent gallbladder. Com mon bile duct diameter within normal limits following cholecystectomy. 3. ??No ascites. I have personally reviewed the image(s) and the resident's interpretation and agree with the findings, Tasia lepe MD at 12/30/2019 11:25 AM Thank you for letting us participate in the care of this patient. For questions regarding this report, please contact t he number below. ?Tasia Giron, Staff Physician Electronically Signed Final Report ?? 11:32 am Narrative 12/30/2019 11:33 AM EDT Abdominal ? (Signed Final 12/30/2019 11:32 am) PATIENT INFO: ID #: ? [id number] ?: ??[birth year] (59 yrs)(F) Name: ? BLOSSOM Ray ? Visit Date: 12/30/2019 10:41 am ? TARA PERFORMED BY: Performed By: ? Maxine Miranda RDMS Attending: ?Bree RUIZ, Ayanna Bourgeois Resident: ? Jeanne RUIZ, Brii Givens Referred By: ?ADELA DURHAM Location: ? [facility] SERVICE(S) PROVIDED: ??UABDLIM - Hepatology Protocol - Abdom inal ? [id number] ??Limited Survey Single Organ or Quadra nt - ??[id number] INDICATIONS: ??cirrhosis, survey for hcc ------ LIVER: ------ Right Lobe Length: ?? 22.0 ?? cm Echogenicity/Echotexture: ?? Fatty live r Comment: ?Left Lobe 19.0 cm GALLBLADDER: Cholelithiasis: ?Surgically abse nt BILIARY TRACT: Intrahepatic Ducts: ?? Normal Extrahepatic Ducts: ?? Normal Common Duct Size: ? 7.0 ? mm Comment: ?11 mm at Head of Pancreas ------ AORTA: ------ Comment: ?Normal in caliber where v isualized. ---- IVC: ---- Normal in caliber where visualized. FLUID COLLECTIONS: No ascites seen. Procedure Note Tasia Giron MD - 12/30/2019Forma tting of this note might be different from the original. Abdominal (Signed Final 12/30/2019 11:3 2 am) PATIENT INFO: ID #: [id number] : [birth year] (59 y rs)(F) Name: BLOSSOM Ray Visit Date: 12/30/2019 10:41 am TARA PERFORMED BY: Performed By: Maxine Miranda RDMS Attending: Tasia Giron MD Resident: Cindi Angel MD Referred By: ADELA DURHAM Location: [facility] SERVICE(S) PROVIDED: UABDLIM - Hepatology Protocol - Abdomin al [id number] Limited Survey Single Organ or Quadrant - [id number] INDICATIONS: cirrhosis, survey for hcc ------ LIVER: ------ Right Lobe Length: 22.0 cm Echogenicity/Echotexture: Fatty liver Comment: Left Lobe 19.0 cm GALLBLADDER: Cholelithiasis: Surgically absent BILIARY TRACT: Intrahepatic Ducts: Normal Extrahepatic Ducts: Normal Common Duct Size: 7.0 mm Comment: 11 mm at Head of Pancreas ------ AORTA: ------ Comment: Normal in caliber where visual ized. ---- IVC: ---- Normal in caliber where visualized. FLUID COLLECTIONS: No ascites seen. IMPRESSION 1. Hepatomegaly. Diffuse increased echo genicity of the enlarged liver consistent with chronic liver disease/s teatosis and hepatomegaly. No focal lesion. 2. Surgically absent gallbladder. Commo n bile duct diameter within normal limits following cholecystectomy. 3. No ascites. I have personally reviewed the image(s) and the resident's interpretation and agree with the findings, Tasia lepe MD at 12/30/2019 11:25 AM Thank you for letting us participate in the care of this patient. For questions regarding this report, please contact kamila horta number below. Tasia Giron Staff Physician Electronically Signed Final Report 12/29 11:32 am Adela Durham FLAT FOLDING MACHINE OPERATOR IMG US GEN ORDERABLES US Retroperitoneal Complete (12/30/2019 10:54 AM EDT) Anatomical Region Laterality Modality Abdomen Ultrasound Specimen (Source) Anatomical Collection Method Collection Time Re ceived Time Location / / Volume Laterality 12/30/2019 10:45 AM EDT Impressions 12/30/2019 11:06 AM EDT 1. ??No renal calculus or hydronephrosi s bilaterally. 2. ??Normal contour of the partially di stended urinary bladder. I have personally reviewed the image(s) and the resident's interpretation and agree with the findings, Tasia lepe MD at 12/30/2019 10:58 AM Thank you for letting us participate in the care of this patient. For questions regarding this report, please contact kamila hotra number below. ?Tasia Giron Staff Physician Electronically Signed Final Report ?? 11:06 am Narrative 12/30/2019 11:06 AM EDT Renal ? (Signed Final 12/30/2019 11:06 am) PATIENT INFO: ID #: ? [id number] ?: ??[birth year] (59 yrs)(F) Name: ? BLOSSOM Ray ? Visit Date: 12/30/2019 10:45 am ? TARA PERFORMED BY: Performed By: ? Maxine Miranda RDMS Attending: ?Bree RUIZ, There se Bourgeois Resident: ? Jeanne RUIZ, Brii Sr. Referred By: ?MEGHANA GALVIN JR Location: ? [facility] SERVICE(S) PROVIDED: ??URETRO - Retroperitoneal Complete - I [id number] ? [id number] INDICATIONS: ???stone RIGHT KIDNEY: Size (cm) ?L: ??12.7 Cortical Thickness: ?Normal Cortical Echogenicity: ?? Normal Hydronephrosis: ?No sonogr aphic evidence Comment: ?Simple cyst, cortical, mi d 11 x 7 x 7 mm LEFT KIDNEY: Size (cm) ?L: ??12.8 Cortical Thickness: ?Normal Cortical Echogenicity: ?? Normal Hydronephrosis: ?No sonogr aphic evidence URINARY BLADDER: Comment: ?Partially distended, norm al contour Procedure Note Tasia Giron MD - 12/30/2019Forma tting of this note might be different from the original. Renal (Signed Final 12/30/2019 11:06 am ) PATIENT INFO: ID #: [id number] : [birth year] (59 y rs)(F) Name: BLOSSOM Ray Visit Date: 12/30/2019 10:45 am TARA PERFORMED BY: Performed By: Maxine Miranda RDMS Attending: Tasia Giron MD Resident: Cindi Angel MD Referred By: MEGHANA GALVIN Location: [facility] SERVICE(S) PROVIDED: URETRO - Retroperitoneal Complete - [facility] [place] [id number] INDICATIONS: ?stone RIGHT KIDNEY: Size (cm) L: 12.7 Cortical Thickness: Normal Cortical Echogenicity: Normal Hydronephrosis: No sonographic evidence Comment: Simple cyst, cortical, mid 11 x 7 x 7 mm LEFT KIDNEY: Size (cm) L: 12.8 Cortical Thickness: Normal Cortical Echogenicity: Normal Hydronephrosis: No sonographic evidence URINARY BLADDER: Comment: Partially distended, normal co ntour IMPRESSION 1. No renal calculus or hydronephrosis bilaterally. 2. Normal contour of the partially dist ended urinary bladder. I have personally reviewed the image(s) and the resident's interpretation and agree with the findings, Tasia lepe MD at 12/30/2019 10:58 AM Thank you for letting us participate in the care of this patient. For questions regarding this report, please contact t he number below. Tasia Giron, Staff Physician Electronically Signed Final Report 12/29 11:06 am Meghana Galvin Jr., MD IMG US GEN ORDERABLES documented in this encounter Visit Diagnoses Diagnosis Nephrolithiasis Calculus of kidney Hepatic cirrhosis, unspecified hepatic c irrhosis type, unspecified whether ascites present documented in this encounter Care Teams Annual Giving Director Relationship Specialty Start Date End Date Albert Zuleta MD PCP - General Family Medicine 01/17/17 10/26/21 [address] [place] [address] documented as of this encounter
--- OUTSIDE RECORDS SUMMARY | 2022-02-08 01:51 | XMS_ITS | Encounter Summary ---
:1960 Author Organization [facility] [place] [address] Care Team Providers Name Role Phone Albert Zuleta MD Primary Care Provider Encounter Details Date Type Department Care Team Description 08/13/2019 Orders Only General Surgery at [facility] Emily Mcmahon MD [facility] [place] [address] GENERAL SURGERY [phone] [place], [place] [address] (Wo rk) Social History Tobacco [...] this encounter Miscellaneous Notes Addendum Note - Roberto Fontanez RN - 08/13/2019 12:43 PM EST Addended by: ROBERTO FONTANEZ on: 08/13/2019 12:56 PM Modules accepted: Orders documented in this encounter Plan of Treatment Upcoming Encounters Date Type Specialty Care Team Description 03/15/2022 Office Visit Neurology Ryann Barfield APRN [facility] [address] [place], [place] [address] 03/23/2022 Appointment Radiology Hailey Mcclendon MD [facility] [address] [place] [address] 03/23/2022 Laboratory Appointment Lab 03/23/2022 Office Visit Gastroenterology Hailey Mcclendon MD [facility] [address] [place], [place] [address] 05/23/2022 Procedure visit Maxillofacial Surgery Corby Montes MD [facility] [address] [place], [place] [address] documented as of this encounter Visit Diagnoses Not on filedocumented in this encounter Care Teams Inker Machine Relationship Specialty Start Date End Date Albert Zuleta MD PCP - General Family Medicine 01/17/17 10/26/21 [place] [address] documented as of this encounter
--- OUTSIDE RECORDS SUMMARY | 2022-02-08 01:51 | XMS_ITS | Encounter Summary ---
:1960 Author Organization [facility] [place] [address] Care Team Providers Name Role Phone Albert Zuleta MD Primary Care Provider Encounter Details Date Type Department Care Team Description 08/15/2019 Telephone General Surgery at [facility] Leeanne Zeng, [place] [address] Social History Tobacco Use Types Packs/Day [...] this encounter Miscellaneous Notes Telephone Encounter - Leeanne Self RN - 08/15/2019 8:25 AM EST Patient is S/P Case Date: 08/12/2019 ?? Surgeon: Surgeon(s) and Role: * Emily Mcmahon MD - Primary * Kiko Summers MD - Resident ?? Preoperative diagnosis: HYPERPARATHYROIDISM ?? Postoperative diagnosis: HYPERPARATHYROIDISM ?? Procedure(s) (LRB): PARATHYROIDECTOMY OR EXPLORATION OF PARATHYROID(S) (WRVU 15.6) (N/A) FACIAL NERVE MONITORING, SETUP LARYNGEAL (WRVU 1.57) (N/A) ?? Anesthesia: General Patient sent in a note through [facility] last night reporting issues with diarrhea which she is suspect of being a side effect from Vitamin D. Spoke to [facility] and phoned patient back. She will D/C Vitamin D and will wean off Ca to see if symptoms improve. She will push fluids and see if things improve through the day. She is happy with this plan and will call later today if things do not improve. documented in this encounter Plan of Treatment Upcoming Encounters Date Type Specialty Care Team Description 03/15/2022 Office Visit Neurology Ryann Barfield APRN [facility] [address] [place], [place] [address] 03/23/2022 Appointment Radiology Hailey Mcclendon MD [facility] [address] [place] [address] 03/23/2022 Laboratory Appointment Lab 03/23/2022 Office Visit Gastroenterology Hailey Mcclendon MD [facility] [address] [place] [address] 05/23/2022 Procedure visit Maxillofacial Surgery Corby Montes MD [facility] [address] [place] [address] documented as of this encounter Visit Diagnoses Not on filedocumented in this encounter Care Teams Pastry Decorator Relationship Specialty Start Date End Date Albert Zuleta MD PCP - General Family Medicine 01/17/17 10/26/21 [place] [address] documented as of this encounter
--- OUTSIDE RECORDS SUMMARY | 2022-02-08 01:51 | XMS_ITS | Encounter Summary ---
:1960 Author Organization [facility] [place] [address] Care Team Providers Name Role Phone Albert Zuleta MD Primary Care Provider Reason for Referral Diagnostic Test (Routine) - Closed Specialty Diagnoses / Procedures Referred By Contact Refer red To Contact Radiology Diagnoses Hepatosplenomegaly Hailey Mcclendon MD [facility] Interventionl Rad Procedures IR [place] [address] [place] [address] Fax: Referral ID Status Reason Start Date Expiration Date Visits V isits Requested Authorized [id number] Closed Specialty 06/20/2019 06/19/2020 1 1 Service Requested Reason for Visit Diagnostic Test (Routine) - Closed Specialty Diagnoses / Procedures Referred By Contact Refer red To Contact Radiology Diagnoses Hepatosplenomegaly Hailey Mcclendon MD [facility] Interventionl Rad Procedures IR [place] [address] [place] [address] Fax: Referral ID Status Reason Start Date Expiration Date Visits V isits Requested Authorized [id number] Closed Specialty 06/20/2019 06/19/2020 1 1 Service Requested Encounter Details Date Type Department Care Team Description 07/01/2019 Hospital Encounter Radiology at [facility] Hailey Mcclendon, Hepatosplenomegaly; [facility] Pre-op testing Drive [facility] [id number] [place] [phone] [id number] Social History Tobacco Use Types Packs/Day Years [...] Sign Reading Time Taken Comments Blood Pressure 114/94 07/01/2019 11:00 AM EST Pulse 65 07/01/2019 9:23 AM EST Temperature 36.2 ??C (97.2 ??F) 07/01/2019 9:23 AM EST Respiratory Rate 18 07/01/2019 11:00 AM EST Oxygen Saturation 98% 07/01/2019 11:00 AM EST Inhaled Oxygen Concentration - - Weight - - Height - - Body Mass Index - - documented in this encounter Discharge Instructions Discharge Avani Velez RN - 07/01/2019 9:24 AM EST [facility] Vascular and Interventional Radiology Biopsy Discharge Instructions ??? Liver call your doctor immediately if you develop a sudden onset of weakness, increased pain or swelling at the biopsy site or heavy bleeding at the biopsy site. Activity And Diet: ??? Go home and rest quietly for the remainder of the day. You may resume your normal activities tomorrow. ??? Resume your usual diet after the procedure. ??? Do not drive, sign any important/legal documents, or make any important decisions for 24 hours following sedation medications. When to call your healthcare provider: ??? If you see any redness, swelling or drainage at the biopsy site. ??? If you develop chills. ??? If you have a fever greater than or equal to 101 degrees Fahrenheit. ??? If you develop pain around the biopsy site. Bandage: ??? Check the dressing/bandaid throughout the day for an increase in drainage. Keep the biopsy site dry for 24 hours. Replace the bandaid as needed. You may shower 24 hours after the biopsy. Medication: ??? DO NOT take aspirin-containing products, ibuprofen, or blood-thinning medication for the next 24hours unless your clinician says you may do so. ??? Generally you may use acetaminophen as needed for discomfort unless you have liver disease and are instructed not to take acetaminophen. Biopsy Results ??? The results of your biopsy should be available within 5 business days and will be reported to you by your primary pharmacy customer care specialist or the clinician who ordered the biopsy. Please do not call us for results as we will not have them. ??? If you have not been contacted by your clinician within 5 business days you should call that office for further information. When to call the Interventional Radiology Department: Please call with any questions or concerns. Ifit is during regular office hours, please call [phone]. If it is after regular office hours, oron weekends or holidays, please call [phone] and ask to speak to the After School Driver on callfor Interventional Radiology. You have received medication during your procedure to help lessen anxiety and keep you comfortable.These medications affect judgement and reaction time. We recommend that you do not drive, operate equipment, sign any important documents, or smoke unattended for 24 hours following your procedure. Because of the sedation, be careful on stairs, as you may be unsteady on your feet. You may resume your regular diet as tolerated. IV site -- slight redness, or tenderness is normal, you can use a warm compress. If tenderness and redness increases or foul drainage occurs, please contact your M. D. Revised 05/08/19 documented in this encounter Medications at Time of Discharge Medication Sig Dispensed Refills Start Date End Date tiotropium (Spiriva) 18 Inhale 1 capsule into 0 0 02/03/2013 mcg Capsule, the lungs. w/Inhalation Device ibuprofen Take 1 tablet by mouth 30 [...] 03/09/2018 (PRINIVIL;ZESTRIL) 5 mg MOUTH DAILY Tablet calcium citrate Take 1 tablet by mouth 0 08/13/19 20 08/13/2019 (Calcitrate) 200 mg 3 times daily. (950 mg) Tablet cholecalciferol, Take 2 tablets by 90 tablet 3 08/13/2019 0 08/13/2019 Vitamin D3, (Vitamin mouth 3 times daily. D3) 400 unit Tablet calcium citrate Take 1 tablet by mouth 30 tablet 2 08/13/19 20 08/13/2019 (Calcitrate) 200 mg 3 times daily. (950 mg) Tablet cholecalciferol, Take 2 tablets by 60 tablet 2 08/13/2019 0 08/13/2019 Vitamin D3, (Vitamin mouth 3 times daily. D3) 400 unit Tablet metFORMIN (GLUCOPHAGE) Take 1,000 mg by mouth 0 07/29/2020 500 mg Tablet 2 times daily (with meals). amitriptyline (ELAVIL) Take 25 mg by mouth 0 09/25/2019 25 mg Tablet nightly. lactobacillus Take 1 capsule by 0 11/2019 rhamnosus, GG, mouth daily. (CULTURELLE) 10 billion cell Capsule HYDROcodone-acetaminoph Take 1 tablet by mouth 0 12/28/2020 en (NORCO) 5-325 mg 2 times daily. Mostly Tablet takes at night for sleep levalbuterol (XOPENEX INHALE TWO PUFFS BY 3 05/0712/28/2020 HFA) 45 mcg/actuation MOUTH EVERY 4 TO 6 HFA Aerosol Inhaler HOURS NEEDED INCRUSE ELLIPTA 62.5 INHALE ONE PUFF BY 5 018 12/28/2020 mcg/actuation Disk with MOUTH EVERY DAY Device carvedilol (COREG) Take 12.5 mg by mouth 3 201711/20/2019 3.125 mg Tablet 2 times daily. documented as of this encounter Progress Notes Concha Quiñonez RN - 07/01/2019 11:59 PM EST Interventional and Vascular Radiology Post-Procedure Call Name: Blossom Pacheco Age: 58 y.o. Sex; Female Date of : 1960 (home) No relevant phone numbers on file. PCP Albert Zuleta MD [phone] Date/Time of call: July 02, 2019/10:55 AM Procedure: LIVER BIOPSY Procedural Provider: JAZZY FLOR Contact with patient or if not, with whom? PATIENT Message left on answering machine? NO Provider notified via phone or email if unable to contact pt: N/A Are you having pain related to your procedure now? NO Lung bx: Any shortness of breath, coughing up blood or chest pain? Liver bx: Any pain a biopsy site: NO Are you having any swelling or bleeding from the site? NO Are there any improvement in your symptoms? N/A Are you having any other problems related to your procedure? Comments: Pt states, I just got out of the shower. I feel great! Did you understand the discharge instructions given and do you have any questions? Comments: N/A Do you have any comments about your Nurse or Provider or the care you received? N/A Nurse Comments: Avani Mccarty RN - 07/01/2019 8:51 AM EST To procedure room 3 via stretcher. Pt to remain on stretcher. All monitors, O2, safety strap in place. Med's per protocol. Avani Mccarty RN - 06/26/2019 3:27 PM EST [facility] Name: BLOSSOM PACHECO Date of : 1960 AGE: 58 y.o. [address]: [address] [place] [id number] (home) Mobile: No relevant phone numbers on file. Referring Provider: Hailey Mcclendon REASON FOR VISIT: Order Questions Answers Where will study be performed? [facility] Radiology [120] Reason for exam and clinical history: hepatosplenomegaly, negative work up, ?causea Is the patient on anticoagulant / anitplatelet therapy ? Aspirin Allergies Allergen Reactions ??? Ketamine Other (See Comments) Hallucinations ??? Anafranil [Clomipramine] Other (See Comments) give me the flu ??? Augmentin [Amoxicillin-Pot Clavulanate] Hives and Itching ??? Erythromycin Hives and Itching ??? Macrobid [Nitrofurantoin Monohyd/M-Cryst] Other (See Comments) Causes depression ??? Sulfa (Sulfonamide Antibiotics) Hives Pertinent PMH: Patient Active Problem List Diagnosis Code ??? [...] N20.0 ??? Shock R57.9 ??? Abscess L02.91 Pertinent PSH: Past Surgical History: Procedure Laterality Date ??? IR ALL DRAINAGE PROCEDURES 02/20/2019 IR All Drainage Procedures 02/20/2019 Jazzy Flor MD [facility] INTERVENTIONL RAD ??? IR DRAIN CHECK/CHANGE/REMOVE 03/07/2019 IR Drain Check/Change/Remove 03/07/2019 Albert Mendez MD [facility] INTERVENTIONL RAD ??? PRG ECHOENCEPHALOGRAPH REAL TIME Left 11/07/2018 ULTRASOUND USE (WRVU 0.63) performed by Crow Galvin Jr., MD at [facility] OR ??? PRG FLUOROSCOPY EXAM UP TO 1 HR PHY OR OT HLTH CARE PROV N/A 09/26/2018 FLUOROSCOPY (WRVU 0.17) performed by Crow Galvin Jr., MD at [facility] OR ??? PRG FLUOROSCOPY EXAM UP TO 1 HR PHY OR OTH HLTH CARE PROV N/A 11/07/2018 FLUOROSCOPY (WRVU 0.17) performed by Crow Galvin Jr., MD at [facility] OR ??? PRG US GUIDE INTRAOP Right 09/26/2018 ULTRASONIC GUIDANCE, INTRAOP (WRVU 1.2) performed by Crow Galvin Jr., MD at [facility] OR ??? PRO COLONOSCOPY, REMV LESN, SNARE N/A 03/26/2019 COLONOSCOPY, POLYPECTOMY, REMOVAL LESION BY SNARE (WRVU 4.67) performed by Abhinav Stacy MD at [facility] ENDOSCOPY ? ? PRO CYSTO W URETEROSCOPY &/OR PYELOSCOPY, DX Right 09/26/2018 CYSTOURETEROSCOPY, DIAGNOSTIC (WRVU 5.75) performed by Crow Galvin Jr., MD at [facility] OR ? ? PRO CYSTO W URETEROSCOPY &/OR PYELOSCOPY, DX Left 11/07/2018 CYSTOURETEROSCOPY, DIAGNOSTIC (WRVU 5.75) performed by Crow Galvin Jr., MD at [facility] OR ??? PRO CYSTOSCOPY, INSERT URETERAL STENT Right 07/10/2018 CYSTO, STENT PLACEMENT (WRVU 2.82) performed by Viky Sears MD at [facility] OR ??? PRO CYSTOSCOPY, REMV CALCULUS, COMPLIC Right 09/26/2018 CYSTO, REMOVAL OF STENT, FOREIGN BODY, CALCULUS, COMPLICATED (WRVU 5.2) performed by Crow Galvin MD at [facility] OR ??? PRO CYSTOURETHROSCOPY, URETER CATHETER Right 07/10/2018 CYSTO, RETROGRADE, URETEROPYELOGRAPHY (WRVU 2.37) performed by Viky Sears MD at [facility] OR ??? PRO CYSTOURETHROSCOPY, URETER CATHETER Right 09/26/2018 CYSTO, RETROGRADE, URETEROPYELOGRAPHY, W/PCNL (WRVU 2.37) performed by Crow Galvin Jr., MD at [facility] OR ??? PRO EXPLORATORY OF ABDOMEN N/A 01/05/2019 @EXPLORATORY LAPAROTOMY, WITH/WITHOUT BIOPSY(S) (WRVU 12.54) performed by Ace Henry MD at [facility] OR ??? PRO EXPLORATORY OF ABDOMEN N/A 01/07/2019 @EXPLORATORY LAPAROTOMY, WITH/WITHOUT BIOPSY(S) (WRVU 12.54) performed by Ace Henry MD at [facility] OR ??? PRO FREEING BOWEL ADHESION, ENTEROLYSIS N/A 01/05/2019 @LYSIS OF ADHESIONS, ABD. (WRVU 18.46) performed by Ace Henry MD at [facility] OR ? ? PRO PERCUTANEOUS NEPHROSTOLITHOTOMY/PYELOSTOLITHOTOMY > 2 CM Right 09/26/2018 NEPHROLITHOTOMY, (PCNL) PERCUTANEOUS, OVER 2CM (WRVU 23.5) performed by Crow Galvin Jr., MD at [facility] OR ? ? PRO PERCUTANEOUS NEPHROSTOLITHOTOMY/PYELOSTOLITHOTOMY > 2 CM Left 11/07/2018 NEPHROLITHOTOMY, (PCNL) PERCUTANEOUS, OVER 2CM (WRVU 23.5) performed by Crow Galvin Jr., MD at [facility] MAIN OR ? ? PRO [facility] NEPHROSTOMY CATH PRQ NEW ACCESS RS&I Right 09/26/2018 NEPHROSTOMY CATHETER, PERC, INC DX NEPHROSTOGRAM/URETEROGRAM, IMG GUIDANCE (WRVU 4.25) performed byCrow Galvin Jr., MD at [facility] OR ? ? PRO PLRI NEPHROSTOMY CATH PRQ NEW ACCESS RS&I Left 11/07/2018 NEPHROSTOMY CATHETER, PERC, INC DX NEPHROSTOGRAM/URETEROGRAM, IMG GUIDANCE (WRVU 4.25) performed byCrow Galvin Jr., MD at [facility] OR ??? PRO RENAL ENDOSCOPY, TREATMENT Left 11/07/2018 RENAL ENDOSCOPY W\FULG, W\WO\BX, VIA NEPHROSTOMY (WRVU 6.61) performed by Crow Galvin Jr., MD [facility] OR ??? PRO RESECT SMALL INTEST, SINGL RESEC/ANAS N/A 01/07/2019 @BOWEL RESECTION, SMALL INTESTINE SINGLE ANASTOMOSIS (WRVU 20.82) performed by Ace Henry MD at [facility] OR Date/Procedure: ?Meds given/comments: 02/20/19 US Abdominal Drain Placment Local Only per Pt request 03/07/19 Sinogram, drain removal Local only, drove self. ??07/01/19 U/S guided Liver Biopsy ??Local only per pt request. ? Laboratory Results: Lab Results Component Value Date INR 1.1 01/04/2019 Lab Results Component Value Date CREATININE 0.57 (L) 02/21/2019 Lab Results Component Value Date K 3.6 02/21/2019 Lab Results Component Value Date PLATELET 266 02/28/2019 Medications: Prior to Admission medications Medication Sig Start Date End Date Taking? Authorizing Provider metFORMIN (GLUCOPHAGE) 500 mg Tablet Take 500 mg by mouth 2 times daily (with meals). PROVIDER, HISTORICAL acetaminophen (TYLENOL) 500 mg Tablet Take 1,000 mg by mouth every 6 hours as needed for Pain. PROVIDER, HISTORICAL cholestyramine (QUESTRAN) 4 gram Powder Take by mouth 3 times daily (with meals). PROVIDER, HISTORICAL acyclovir (ZOVIRAX) 5 % Ointment Apply 1 each topically every 3 hours. PROVIDER, HISTORICAL valACYclovir (VALTREX) 1 gram Tablet TAKE ONE TABLET BY MOUTH EVERY DAY NEEDED 06/05/19 PROVIDER,HISTORICAL amitriptyline (ELAVIL) 25 mg Tablet Take 25 mg by mouth nightly. PROVIDER, HISTORICAL nitroGLYcerin (NITROSTAT) 0.4 mg Tablet, Sublingual Place 0.4 mg under the tongue every 5 minutes asneeded for Chest pain. PROVIDER, HISTORICAL lactobacillus rhamnosus, GG, (CULTURELLE) 10 billion cell Capsule Take 1 capsule by mouth daily. PROVIDER, HISTORICAL diclofenac (VOLTAREN) 1 % Gel Apply topically 4 times daily as needed. PROVIDER, HISTORICAL atorvastatin (LIPITOR) 10 mg Tablet Take 10 mg by mouth daily. PROVIDER, HISTORICAL dulaglutide (TRULICITY SUBQ) Inject subcutaneously once a week. PROVIDER, HISTORICAL HYDROcodone-acetaminophen (NORCO) 5-325 mg Tablet Take 1 tablet by mouth 2 times daily. PROVIDER, HISTORICAL aspirin 81 mg Tablet, Chewable Take 81 mg by mouth daily. 07/11/18 Kelsey Eaton MD levalbuterol (XOPENEX HFA) 45 mcg/actuation HFA Aerosol Inhaler INHALE TWO PUFFS BY MOUTH EVERY 4 TO6 HOURS NEEDED 05/07/18 PROVIDER, HISTORICAL INCRUSE ELLIPTA 62.5 mcg/actuation Disk with Device INHALE ONE PUFF BY MOUTH EVERY DAY 05/07/18 PROVIDER, HISTORICAL loratadine (CLARITIN) 10 mg Tablet TAKE ONE TABLET BY MOUTH EVERY DAY NEEDED 02/06/18 PROVIDER, HISTORICAL gabapentin (NEURONTIN) 600 mg Tablet TAKE ONE TABLET BY MOUTH THREE TIMES A DAY 06/09/18 PROVIDER, HISTORICAL spironolactone (ALDACTONE) 25 mg Tablet TAKE ONE TABLET BY MOUTH EVERY DAY 05/13/18 PROVIDER, HISTORICAL carvedilol (COREG) 3.125 mg Tablet TAKE ONE TABLET BY MOUTH TWICE A DAY 05/07/18 PROVIDER, HISTORICAL lisinopril (PRINIVIL;ZESTRIL) 5 mg Tablet TAKE ONE TABLET BY MOUTH DAILY 03/09/18 PROVIDER, HISTORICAL documented in this encounter H&P Notes Vicente Almendarez MD - 07/01/2019 8:37 AM EST INTERVENTIONAL RADIOLOGY FOCUSED H&P: Procedure: Planned procedure: Nonfocal percutaneous liver biopsy The patient's history and physical exam have been reviewed and completed. There has been no intervalchange from that of the pre-operative history and physical exam done within the last 30 days. Physical Exam: Cardiovascular: Regular, Normal Pulmonary: Breath sounds clear to auscultation Abdomen: nontender The planned procedure (and sedation plan if appropriate) , its benefits and risks, and alternatives were discussed with the patient. The patient consented to the procedure. Source Note - Kentrell Pacheco PA - 06/30/2019 9:38 AM EST Images from the original note were not included. Interventional Radiology Focused H&P/Pre-procedure Note: PCP: Albert Zuleta MD Referring Provider: Hailey Mcclendon Planned procedure: Nonfocal percutaneous liver biopsy Procedure Indication: Hepatosplenomegaly in setting of otherwise negative work-up Order Questions Answers Where will study be performed? [facility] Radiology [120] Reason for exam and clinical history: hepatosplenomegaly, negative work up, ?causea Is the patient on anticoagulant / anitplatelet therapy ? Aspirin History of Present Illness: Blossom Pacheco is a 58 y.o. female with past medical history significant for type 2 diabetes, left bundle branch block, obesity, sarcoidosis, COPD who is referred to theIR service for nonfocal percutaneous liver biopsy and further evaluation of hepatosplenomegaly in the setting of normal laboratory values and negative serology. Patient reportedly prefers local anesthetic only for this procedure. And negative serology previously seen by interventional radiology in February 2019 for placement of anterior abdominal wall abscess drain. IR History: Date/Procedure:? Meds given/comments: 02/20/19 US??Abdominal Drain Placment Local Only per Pt request 03/07/19 Sinogram, drain removal Local Imaging: Assessment: 58 y.o. female presenting to interventional radiology for nonfocal liver biopsy. Plan Planned procedure: Nonfocal percutaneous liver biopsy Labs to be performed day of procedure: PLT, Coags Sedation: no sedation Prophylactic antibiotic : None Contrast: No contrast Additional medications for procedure: Lidocaine Planned access site: Abdomen Position: Supine Consent: Pending Labs: Lab Results Component Value Date WBC 8.3 02/28/2019 HCT 34.1 (L) 02/28/2019 PLATELET 266 02/28/2019 INR 1.1 01/04/2019 BUN 5 (L) 02/21/2019 CREATININE 0.57 (L) 02/21/2019 ALKPHOS 134 (H) 06/13/2019 AST 23 06/13/2019 ALBUMIN 4.9 06/13/2019 BILIDIR 0.2 06/13/2019 BILITOT 0.9 06/13/2019 ALT 28 06/13/2019 PROT 8.4 (H) 06/13/2019 Allergies: Ketamine; Anafranil [clomipramine]; Augmentin [amoxicillin-pot clavulanate]; Erythromycin; Macrobid [nitrofurantoin monohyd/m-cryst]; and Sulfa (sulfonamide antibiotics) Medications: Current Outpatient Medications on File Prior to Encounter Medication Sig Dispense Refill ??? metFORMIN (GLUCOPHAGE) 500 mg Tablet Take [...] BY MOUTH EVERY DAY NEEDED 1 ??? amitriptyline (ELAVIL) 25 mg Tablet Take 25 mg by mouth nightly. ??? nitroGLYcerin (NITROSTAT) 0.4 mg Tablet, Sublingual Place 0.4 mg under the tongue every 5 minutes as needed for Chest pain. ??? lactobacillus rhamnosus, GG, (CULTURELLE) 10 billion cell Capsule Take 1 capsule by mouth daily. ??? diclofenac (VOLTAREN) 1 % Gel Apply [...] TABLET BY MOUTH EVERY DAY 3 ??? carvedilol (COREG) 3.125 mg Tablet TAKE ONE TABLET BY MOUTH TWICE A DAY 3 ??? lisinopril (PRINIVIL;ZESTRIL) 5 mg Tablet TAKE ONE TABLET BY MOUTH DAILY 3 No current facility-administered medications on file prior to encounter. Past Medical/Surgical History: Patient Active Problem List Diagnosis Code ??? [...] N20.0 ??? Shock R57.9 ??? Abscess L02.91 Past Medical History: Diagnosis Date ??? Asthma ??? Bowel disease IBS ??? CHF (congestive heart failure) diag 2016 [facility] ??? Chronic lung disease sarcoidosis ??? Chronic pain mostly legs,back,neuropathy ??? CIS - Chest pain ??? COPD (chronic obstructive pulmonary disease) ??? CPAP (continuous positive airway pressure) dependence get the machine the Aug. ??? Delayed emergence from anesthesia 2018stent done, had to have revresal ??? Diabetes ??? Irregular heart beat LBBB diag 2009 weak left ventricle ??? Kidney failure 'don't know if it's failure ??? long term care pharmacist current use of opiate analgesic PCP ??? Mental health problem ??? Obstructive sleep apnea diag 2007 ??? Osteoma of ear canal ??? Vertigo balance prob,last fall early Jun. Past Surgical History: Procedure Laterality Date ??? IR ALL DRAINAGE PROCEDURES 02/20/2019 IR All Drainage Procedures 02/20/2019 Jazzy Flor MD [facility] INTERVENTIONL RAD ??? IR DRAIN CHECK/CHANGE/REMOVE 03/07/2019 IR Drain Check/Change/Remove 03/07/2019 Albert Mendez MD [facility] INTERVENTIONL RAD ??? PRG ECHOENCEPHALOGRAPH REAL TIME Left 11/07/2018 ULTRASOUND USE (WRVU 0.63) performed by Crow Galvin Jr., MD at [facility] MAIN OR ??? PRG FLUOROSCOPY EXAM UP TO 1 HR PHY OR OT HLTH CARE PROV N/A 09/26/2018 FLUOROSCOPY (WRVU 0.17) performed by Crow Galvin Jr., MD at [facility] MAIN OR ??? PRG [facility] 11/07/2018 FLUOROSCOPY (WRVU 0.17) performed by Crow Galvin Jr., MD at [facility] MAIN OR ??? PRG US GUIDE INTRAOP Right 09/26/2018 ULTRASONIC GUIDANCE, INTRAOP (WRVU 1.2) performed by Crow Galvin Jr., MD at [facility] MAIN OR ??? PRO COLONOSCOPY, REMV LESN, SNARE N/A 03/26/2019 COLONOSCOPY, POLYPECTOMY, REMOVAL LESION BY SNARE (WRVU 4.67) performed by Abhinav Stacy MD at [facility] ENDOSCOPY ? ? PRO CYSTO W URETEROSCOPY &/OR PYELOSCOPY, DX Right 09/26/2018 CYSTOURETEROSCOPY, DIAGNOSTIC (WRVU 5.75) performed by Crow Galvin Jr., MD at [facility] MAIN OR ? ? PRO CYSTO W URETEROSCOPY &/OR PYELOSCOPY, DX Left 11/07/2018 CYSTOURETEROSCOPY, DIAGNOSTIC (WRVU 5.75) performed by Crow Galvin Jr., MD at [facility] OR ??? PRO CYSTOSCOPY, INSERT URETERAL STENT Right 07/10/2018 CYSTO, STENT PLACEMENT (WRVU 2.82) performed by Viky Sears MD at [facility] OR ??? PRO CYSTOSCOPY, REMV CALCULUS, COMPLIC Right 09/26/2018 CYSTO, REMOVAL OF STENT, FOREIGN BODY, CALCULUS, COMPLICATED (WRVU 5.2) performed by Crow Galvin MD at [facility] OR ??? PRO CYSTOURETHROSCOPY, URETER CATHETER Right 07/10/2018 CYSTO, RETROGRADE, URETEROPYELOGRAPHY (WRVU 2.37) performed by Viky Sears MD at [facility] OR ??? PRO CYSTOURETHROSCOPY, URETER CATHETER Right 09/26/2018 CYSTO, RETROGRADE, URETEROPYELOGRAPHY, W/PCNL (WRVU 2.37) performed by Crow Galvin Jr., MD at [facility] OR ??? PRO EXPLORATORY OF ABDOMEN N/A 01/05/2019 @EXPLORATORY LAPAROTOMY, WITH/WITHOUT BIOPSY(S) (WRVU 12.54) performed by Ace Henry MD at [facility] OR ??? PRO EXPLORATORY OF ABDOMEN N/A 01/07/2019 @EXPLORATORY LAPAROTOMY, WITH/WITHOUT BIOPSY(S) (WRVU 12.54) performed by Ace Henry MD at [facility] OR ??? PRO FREEING BOWEL ADHESION, ENTEROLYSIS N/A 01/05/2019 @LYSIS OF ADHESIONS, ABD. (WRVU 18.46) performed by Ace Henry MD at [facility] MAIN OR ? ? PRO PERCUTANEOUS NEPHROSTOLITHOTOMY/PYELOSTOLITHOTOMY > 2 CM Right 09/26/2018 NEPHROLITHOTOMY, (PCNL) PERCUTANEOUS, OVER 2CM (WRVU 23.5) performed by Crow Galvin Jr., MD at [facility] MAIN OR ? ? PRO PERCUTANEOUS NEPHROSTOLITHOTOMY/PYELOSTOLITHOTOMY > 2 CM Left 11/07/2018 NEPHROLITHOTOMY, (PCNL) PERCUTANEOUS, OVER 2CM (WRVU 23.5) performed by Crow Galvin Jr., MD at [facility] MAIN OR ? ? PRO PLRI NEPHROSTOMY CATH PRQ NEW ACCESS RS&I Right 09/26/2018 NEPHROSTOMY CATHETER, PERC, INC DX NEPHROSTOGRAM/URETEROGRAM, IMG GUIDANCE (WRVU 4.25) performed byCrow Galvin Jr., MD at [facility] MAIN OR ? ? PRO PLRI NEPHROSTOMY CATH PRQ NEW ACCESS RS&I Left 11/07/2018 NEPHROSTOMY CATHETER, PERC, INC DX NEPHROSTOGRAM/URETEROGRAM, IMG GUIDANCE (WRVU 4.25) performed byCrow Galvin Jr., MD at [facility] MAIN OR ??? PRO RENAL ENDOSCOPY, TREATMENT Left 11/07/2018 RENAL ENDOSCOPY W\FULG, W\WO\BX, VIA NEPHROSTOMY (WRVU 6.61) performed by Crow Galvin Jr., MD [facility] OR ??? PRO RESECT SMALL INTEST, SINGL RESEC/ANAS N/A 01/07/2019 @BOWEL RESECTION, SMALL INTESTINE SINGLE ANASTOMOSIS (WRVU 20.82) performed by Ace Henry MD at [facility] MAIN OR Social History and Habits: Social History Socioeconomic History ??? Marital status: Spouse name: Not on file ??? Number of children: Not on file ??? Years of education: Not on file ??? Highest education level: Not on file Occupational History ??? Not on file Social Needs ??? Financial resource strain: Not on file ??? Food insecurity: Worry: Not on file Inability: Not on file ??? Transportation needs: Medical: Not on file Non-medical: Not on file Tobacco Use ??? Smoking status: Former Smoker Packs/day: 1.00 Years: 30.00 Pack years: 30.00 Types: Cigarettes Last attempt to quit: 07/23/2016 Years since quittin.9 ??? Smokeless tobacco: Never Used Substance and Sexual Activity ??? Alcohol use: No Frequency: Never Comment: 3 X a year ??? Drug use: Yes Frequency: 14.0 times per week Types: Marijuana, Pain Pills Comment: vicodin ??? Sexual activity: Never Partners: Male Lifestyle ??? Physical activity: Days per week: Not on file Minutes per session: Not on file ??? Stress: Not on file Relationships ??? Social connections: Talks on phone: Not on file Gets together: Not on file Attends anabaptism service: Not on file Active member of club or organization: Not on file Attends meetings of clubs or organizations: Not on file Relationship status: Not on file ??? Intimate partner violence: Fear of current or ex partner: Not on file Emotionally abused: Not on file Physically abused: Not on file Forced sexual activity: Not on file Other Topics Concern ??? Not on file Social History Narrative ??? Not on file Significant Family History: Family History Problem Relation Age of Onset ??? Cancer Father ??? Anesthesia Reaction Father ??? Cancer Sister Pertinent ROS: as per HPI Physical Exam: Pending (to be performed in interventional radiology the day of procedure) ASA: Pending (to be assessed in interventional radiology the day of procedure) Mallampati Class: Pending (to be assessed in interventional radiology the day of procedure) 06/30/2019 JETT Vaz Kentrell Kang PA - 06/30/2019 9:38 AM EST Images from the original note were not included. Interventional Radiology Focused H&P/Pre-procedure Note: PCP: Albert Zuleta MD Referring Provider: Hailey Mcclendon Planned procedure: Nonfocal percutaneous liver biopsy Procedure Indication: Hepatosplenomegaly in setting of otherwise negative work-up Order Questions Answers Where will study be performed? [facility] Radiology [120] Reason for exam and clinical history: hepatosplenomegaly, negative work up, ?causea Is the patient on anticoagulant / anitplatelet therapy ? Aspirin History of Present Illness: Blossom Pacheco is a 58 y.o. female with past medical history significant for type 2 diabetes, left bundle branch block, obesity, sarcoidosis, COPD who is referred to theIR service for nonfocal percutaneous liver biopsy and further evaluation of hepatosplenomegaly in the setting of normal laboratory values and negative serology. Patient reportedly prefers local anesthetic only for this procedure. And negative serology previously seen by interventional radiology in February 2019 for placement of anterior abdominal wall abscess drain. IR History: Date/Procedure:? Meds given/comments: 02/20/19 US??Abdominal Drain Placment Local Only per Pt request 03/07/19 Sinogram, drain removal Local Imaging: Assessment: 58 y.o. female presenting to interventional radiology for nonfocal liver biopsy. Plan Planned procedure: Nonfocal percutaneous liver biopsy Labs to be performed day of procedure: PLT, Coags Sedation: no sedation Prophylactic antibiotic : None Contrast: No contrast Additional medications for procedure: Lidocaine Planned access site: Abdomen Position: Supine Consent: Pending Labs: Lab Results Component Value Date WBC 8.3 02/28/2019 HCT 34.1 (L) 02/28/2019 PLATELET 266 02/28/2019 INR 1.1 01/04/2019 BUN 5 (L) 02/21/2019 CREATININE 0.57 (L) 02/21/2019 ALKPHOS 134 (H) 06/13/2019 AST 23 06/13/2019 ALBUMIN 4.9 06/13/2019 BILIDIR 0.2 06/13/2019 BILITOT 0.9 06/13/2019 ALT 28 06/13/2019 PROT 8.4 (H) 06/13/2019 Allergies: Ketamine; Anafranil [clomipramine]; Augmentin [amoxicillin-pot clavulanate]; Erythromycin; Macrobid [nitrofurantoin monohyd/m-cryst]; and Sulfa (sulfonamide antibiotics) Medications: Current Outpatient Medications on File Prior to Encounter Medication Sig Dispense Refill ??? metFORMIN (GLUCOPHAGE) 500 mg Tablet Take [...] BY MOUTH EVERY DAY NEEDED 1 ??? amitriptyline (ELAVIL) 25 mg Tablet Take 25 mg by mouth nightly. ??? nitroGLYcerin (NITROSTAT) 0.4 mg Tablet, Sublingual Place 0.4 mg under the tongue every 5 minutes as needed for Chest pain. ??? lactobacillus rhamnosus, GG, (CULTURELLE) 10 billion cell Capsule Take 1 capsule by mouth daily. ??? diclofenac (VOLTAREN) 1 % Gel Apply [...] TABLET BY MOUTH EVERY DAY 3 ??? carvedilol (COREG) 3.125 mg Tablet TAKE ONE TABLET BY MOUTH TWICE A DAY 3 ??? lisinopril (PRINIVIL;ZESTRIL) 5 mg Tablet TAKE ONE TABLET BY MOUTH DAILY 3 No current facility-administered medications on file prior to encounter. Past Medical/Surgical History: Patient Active Problem List Diagnosis Code ??? [...] N20.0 ??? Shock R57.9 ??? Abscess L02.91 Past Medical History: Diagnosis Date ??? Asthma ??? Bowel disease IBS ??? CHF (congestive heart failure) diag 2017 [facility] ??? Chronic lung disease sarcoidosis ??? Chronic pain mostly legs,back,neuropathy ??? CIS - Chest pain ??? COPD (chronic obstructive pulmonary disease) ??? CPAP (continuous positive airway pressure) dependence get the machine the Aug. ??? Delayed emergence from anesthesia 2018stent done, had to have revresal ??? Diabetes ??? Irregular heart beat LBBB diag 2009 weak left ventricle ??? Kidney failure 'don't know if it's failure ??? long term care pharmacist current use of opiate analgesic PCP ??? Mental health problem ??? Obstructive sleep apnea diag 2008 ??? Osteoma of ear canal ??? Vertigo balance prob,last fall early Jun. Past Surgical History: Procedure Laterality Date ??? IR ALL DRAINAGE PROCEDURES 02/20/2019 IR All Drainage Procedures 02/20/2019 Jazzy Flor MD [facility] INTERVENTIONL RAD ??? IR DRAIN CHECK/CHANGE/REMOVE 03/07/2019 IR Drain Check/Change/Remove 03/07/2019 Albert Mendez MD [facility] INTERVENTIONL RAD ??? PRG ECHOENCEPHALOGRAPH REAL TIME Left 11/07/2018 ULTRASOUND USE (WRVU 0.63) performed by Crow Galvin Jr., MD at [facility] OR ??? PRG FLUOROSCOPY EXAM UP TO 1 HR PHY OR OT HLTH CARE PROV N/A 09/26/2018 FLUOROSCOPY (WRVU 0.17) performed by Crow Galvin Jr., MD at [facility] OR ??? PRG FLUOROSCOPY EXAM UP TO 1 HR PHY OR OT HLTH CARE PROV N/A 11/07/2018 FLUOROSCOPY (WRVU 0.17) performed by Crow Galvin Jr., MD at [facility] OR ??? PRG US GUIDE INTRAOP Right 09/26/2018 ULTRASONIC GUIDANCE, INTRAOP (WRVU 1.2) performed by Crow Galvin Jr., MD at [facility] OR ??? PRO COLONOSCOPY, REMV LESN, SNARE N/A 03/26/2019 COLONOSCOPY, POLYPECTOMY, REMOVAL LESION BY SNARE (WRVU 4.67) performed by Abhinav Stacy MD at [facility] ENDOSCOPY ? ? PRO CYSTO W URETEROSCOPY &/OR PYELOSCOPY, DX Right 09/26/2018 CYSTOURETEROSCOPY, DIAGNOSTIC (WRVU 5.75) performed by Crow Galvin Jr., MD at [facility] OR ? ? PRO CYSTO W URETEROSCOPY &/OR PYELOSCOPY, DX Left 11/07/2018 CYSTOURETEROSCOPY, DIAGNOSTIC (WRVU 5.75) performed by Crow Galvin Jr., MD at [facility] OR ??? PRO CYSTOSCOPY, INSERT URETERAL STENT Right 07/10/2018 CYSTO, STENT PLACEMENT (WRVU 2.82) performed by Viky Sears MD at [facility] OR ??? PRO CYSTOSCOPY, REMV CALCULUS, COMPLIC Right 09/26/2018 CYSTO, REMOVAL OF STENT, FOREIGN BODY, CALCULUS, COMPLICATED (WRVU 5.2) performed by Crow Galvin MD at [facility] OR ??? PRO CYSTOURETHROSCOPY, URETER CATHETER Right 07/10/2018 CYSTO, RETROGRADE, URETEROPYELOGRAPHY (WRVU 2.37) performed by Viky Sears MD at [facility] OR ??? PRO CYSTOURETHROSCOPY, URETER CATHETER Right 09/26/2018 CYSTO, RETROGRADE, URETEROPYELOGRAPHY, W/PCNL (WRVU 2.37) performed by Crow Galvin Jr., MD at [facility] OR ??? PRO EXPLORATORY OF ABDOMEN N/A 01/05/2019 @EXPLORATORY LAPAROTOMY, WITH/WITHOUT BIOPSY(S) (WRVU 12.54) performed by Ace Henry MD at [facility] OR ??? PRO EXPLORATORY OF ABDOMEN N/A 01/07/2019 @EXPLORATORY LAPAROTOMY, WITH/WITHOUT BIOPSY(S) (WRVU 12.54) performed by Ace Henry MD at [facility] OR ??? PRO FREEING BOWEL ADHESION, ENTEROLYSIS N/A 01/05/2019 @LYSIS OF ADHESIONS, ABD. (WRVU 18.46) performed by Ace Henry MD at [facility] OR ? ? PRO PERCUTANEOUS NEPHROSTOLITHOTOMY/PYELOSTOLITHOTOMY > 2 CM Right 09/26/2018 NEPHROLITHOTOMY, (PCNL) PERCUTANEOUS, OVER 2CM (WRVU 23.5) performed by Crow Galvin Jr., MD at [facility] OR ? ? PRO PERCUTANEOUS NEPHROSTOLITHOTOMY/PYELOSTOLITHOTOMY > 2 CM Left 11/07/2018 NEPHROLITHOTOMY, (PCNL) PERCUTANEOUS, OVER 2CM (WRVU 23.5) performed by Crow Galvin Jr., MD at [facility] OR ? ? PRO PLMT NEPHROSTOMY CATH PRQ NEW ACCESS RS&I Right 09/26/2018 NEPHROSTOMY CATHETER, PERC, INC DX NEPHROSTOGRAM/URETEROGRAM, IMG GUIDANCE (WRVU 4.25) performed Crow Snyder Jr., MD at [facility] MAIN OR ? ? PRO PLMT NEPHROSTOMY CATH PRQ NEW ACCESS RS&I Left 11/07/2018 NEPHROSTOMY CATHETER, PERC, INC DX NEPHROSTOGRAM/URETEROGRAM, IMG GUIDANCE [facility] performed Crow Snyder Jr., MD at [facility] MAIN OR ??? PRO RENAL ENDOSCOPY, TREATMENT Left 11/07/2018 RENAL ENDOSCOPY W\FULG, W\WO\BX, VIA NEPHROSTOMY (WRVU 6.61) performed by Crow Galvin Jr., MD [facility] MAIN OR ??? PRO RESECT SMALL INTEST, SINGL RESEC/ANAS N/A 01/07/2019 @BOWEL RESECTION, SMALL INTESTINE SINGLE ANASTOMOSIS (WRVU 20.82) performed by Ace Henry MD at [facility] MAIN OR Social History and Habits: Social History Socioeconomic History ??? Marital status: Spouse name: Not on file ??? Number of children: Not on file ??? Years of education: Not on file ??? Highest education level: Not on file Occupational History ??? Not on file Social Needs ??? Financial resource strain: Not on file ??? Food insecurity: Worry: Not on file Inability: Not on file ??? Transportation needs: Medical: Not on file Non-medical: Not on file Tobacco Use ??? Smoking status: Former Smoker Packs/day: 1.00 Years: 30.00 Pack years: 30.00 Types: Cigarettes Last attempt to quit: 07/23/2016 Years since quittin.9 ??? Smokeless tobacco: Never Used Substance and Sexual Activity ??? Alcohol use: No Frequency: Never Comment: 3 X a year ??? Drug use: Yes Frequency: 14.0 times per week Types: Marijuana, Pain Pills Comment: vicodin ??? Sexual activity: Never Partners: Male Lifestyle ??? Physical activity: Days per week: Not on file Minutes per session: Not on file ??? Stress: Not on file Relationships ??? Social connections: Talks on phone: Not on file Gets together: Not on file Attends anabaptism service: Not on file Active member of club or organization: Not on file Attends meetings of clubs or organizations: Not on file Relationship status: Not on file ??? Intimate partner violence: Fear of current or ex partner: Not on file Emotionally abused: Not on file Physically abused: Not on file Forced sexual activity: Not on file Other Topics Concern ??? Not on file Social History Narrative ??? Not on file Significant Family History: Family History Problem Relation Age of Onset ??? Cancer Father ??? Anesthesia Reaction Father ??? Cancer Sister Pertinent ROS: as per HPI Physical Exam: Pending (to be performed in interventional radiology the day of procedure) ASA: Pending (to be assessed in interventional radiology the day of procedure) Mallampati Class: Pending (to be assessed in interventional radiology the day of procedure) 06/30/2019 JETT aVz documented in this encounter Plan of Treatment Upcoming Encounters Date Type Specialty Care Team Description 03/15/2022 Office Visit Neurology Ryann Barfield APRN [facility] [address] [place] [address] 03/23/2022 Appointment Radiology Hailey Mcclendon MD [facility] [place] [address] 03/23/2022 Laboratory Appointment Lab 03/23/2022 Office Visit Gastroenterology Hailey Mcclendon MD [facility] [place] [address] 05/23/2022 Procedure visit Maxillofacial Surgery Jazzy Montes MD [facility] [address] [place] [address] documented as of this encounter Procedures Procedure Name Priority Date/Time Associated Diagnosis Comme nts IR BIOPSY LIVER Routine 07/01/2019 9:20 Hepatosplenomegaly Res ults for this PERCUTANEOUS AM EST procedure are i n the results section. SURGICAL PATHOLOGY Routine 07/01/2019 9:10 Result s for this REPORT AM EST procedure are i n the results section. SPECIMEN TO PATHOLOGY Routine 07/01/2019 8:31 Res ults for this AM EST procedure are i n the results section. documented in this encounter Results IR Biopsy Liver Percutaneous (07/01/2019 9:20 AM EST) Anatomical Region Laterality Modality Abdomen X-Ray Angiography Specimen (Source) Anatomical Location Collection Method / Collectio n Time Received Time / Laterality Volume Narrative 07/01/2019 11:44 AM EST IR PROCEDURE NOTE: Ultrasound-guided percutaneous liver biopsy Indication for Procedure: 58 y.o. female with past medical history significant for type 2 diabetes, left bu ndle branch block, obesity, sarcoidosis, COPD who is referred to the IR service for nonfocal percutaneous liver biopsy and further ev aluation of hepatosplenomegaly in the setting of normal laboratory values and negative serology. Procedure: After discussing risks (inclu ding infection, hemorrhage), and benefits, patient consented to the proce dure. The left lobe of the liver was localized with real-time US. ??After sterile preparation of the overlying skin, 1% li docaine SQ was administered for local anesthesia. A suitable level and a ccess path was selected and a 17 gauge coaxial needle was advanced under US guidance. 3 18 gauge core biopsy specimens were obtained and submi tted to Pathology. The needle was removed and hemostasis observed. Post-bi opsy US showed no jason-hepatic fluid. ??The patient tolerated the proce dure well. Medications: ??1% Lidocaine <10 mL subcu taneous Est Blood Loss: <10 mL Complications: ??None immediate. Findings: Unremarkable sonographic appea brittnee of the left liver lobe. Impression: Successful ultrasound-guided percutaneous biopsy of the liver. Resident: ??Dr. Franc MD Attending: Dr. Basia MD I, Dr. Flor, was present throughout e procedure. I was present during the intraservice ti me as documented by the IR Nurse. ?? Hailey Mcclendon MD IMG IR ORDERABLES Surgical Pathology Report (07/01/2019 9:10 AM EST) Component Value Ref Test Analysis Performed At [facility] gist Range Method Time Signature Surgical [id number] ? Location: [facility] Pathology MONICA Report The signing pathologist has (i) examined the relevant preparation(s) for the [facility] specimen(s) and (ii) rendered or confirmed the diagnosis(es) . HOSPITAL LABORATORY . ?Surgic al Pathology DIAGNOSIS Liver, ??biopsy: Cirrhotic parenchyma with mo derate macrovesicular steatosis and features suggestive of alcoholic/nonalcoholic steatohepatitis. An epithelioid granuloma is noted, consi stent with involvement by sarcoidosis. Trichrome stain confirms H&E stain findings. Iron stain is negative for iron deposition. Electronically signed by: ??Ki Oneal MD Verified: ??07/04/2019 ?Pathologist Performed at: ??-[facility] Dept. of Pathology, [place], [place] CLINICAL INFORMATION Specimen Submitted: A - ??percutaneous liver Clinical History and Diagnosis: Hepatosplenomegaly, negative workup, question cause SPECIMEN PROCESSING A - Labeled/Fixative: Percutaneous liver, formalin. Quantity/Size: Three 1.5 x 0.1 cm. Tissue Description: Montez needle core biopsies. Sections/Processing: Entirely submitted in 1 cassette labeled A1. ??ejr Specimen (Source) Anatomical Collection Method Collection Time Re ceived Time Location / / Volume Laterality 07/01/2019 9:10 AM EST Hailey Mcclendon MD PATHOLOGY/CYTOLOGY ORDERABLE S Performing Organization Address City/[facility] [place] [address] Specimen to Pathology (07/01/2019 8:31 AM EST) Specimen Anatomical Collection Method Collection Time Receive d Time (Source) Location / / Volume Laterality AP Specimen 07/01/2019 8:31 AM 9 8:31 EST AM EST Narrative [facility] - 07/01/2019 8:31 AM EST Specimen requisition ordered. ??Separate Pathology report to follow Hailey Mcclendon MD PATHOLOGY/CYTOLOGY ORDERABLE S Performing Organization Address [facility] [place] [address] Prothrombin Time (07/01/2019 7:43 AM EST) athologist Signature PT 12.2 9.4 - 12.5 [facility] sec [facility] LABORATORY INR 1.0 [facility] Comment: An INR <2.0 indicates [...] Location / / Volume Laterality Blood specimen 07/01/2019 7:43 AM 019 7:47 (specimen) EST AM EST Resulting Agency Comment Spec In Lab Hailey Mcclendon MD HEMATOLOGY ORDERABLES Performing Organization Address City/State/ZIP [place] [address] Platelet count (07/01/2019 7:43 AM EST) athologist Signature Platelets 233 145 - 357 [facility] x10(3)/[facility] LABORATORY Plat Immature 2.2 0.0 - 7.4 [facility] % % [facility] LABORATORY Comment: Limitation of the Immature Platelet Frac tion (IPF)-May be less reliable when the platelet count is less than 40b775/u L due to statistical imprecision. The IPF value provides an assessment of the Bone Marrow production status. ??It is useful in differentiating Thrombocyto penia caused by platelet destruction/consumption versus decreased production. It also helps to determine the imminent release of platelets and ca n be therefore a helpful parameter in Chemotherapy and Bone marrow transplant patients. ELEVATED IPF value: ?? When the bone marrow is in a state of over production such as when increased destruction and consumption are the unde rlying issue. ?? When the marrow is recovering post ch emotherapy or bone marrow transplant. LOW to NORMAL IPF value: ?? When the bone marrow in not respondin g and is in a decreased state of production. References: [employer] The Clinical Value of the Immature Platelet Fraction (IPF) in Cell Recovery Document Number 10-1143 12/2010 [employer] The Role of the Imm ature Platelet Fraction (IPF) in the Differential Diagnosis of Thrombocytopen ia, Document [id number] V05/07/05 P05 Specimen Anatomical Collection Method Collection Time Receive d Time (Source) Location / / Volume Laterality Blood specimen 07/01/2019 7:43 AM 019 7:47 (specimen) EST AM EST Resulting Agency Comment Spec In Lab Hailey Mcclendon MD HEMATOLOGY ORDERABLES Performing Organization Address City/State/[place] [address] documented in this encounter Visit Diagnoses Diagnosis Hepatosplenomegaly Other chronic nonalcoholic liver disease Pre-op testing Preoperative examination, unspecified documented in this encounter Administered Medications Inactive Administered Medications - up to 3 most recent administrations Medication Order MAR Action Action Date Dose Rate Site lidocaine (XYLOCAINE) 10 mg/mL (1 Given 07/01/2019 9:30 AM EST 1 0 mg %) injection 10 mg 10 mg, Subcutaneous, ONCE, 1 dose, On Sun07/01/19 at 0930, For use in Interventional Radiology (IR) only for procedure with direct provider supervision and verbal order., Angio/IR (Intra-Procedure), Routine documented in this encounter Care Teams Processing Rep Relationship Specialty Start Date End Date Albert Zuleta MD PCP - General Family Medicine 01/17/17 10/26/21 [address] [place] [facility] [place] [address] documented as of this encounter
--- OUTSIDE RECORDS SUMMARY | 2022-02-08 01:51 | XMS_ITS | Encounter Summary ---
:1960 Author Organization [facility] [place] [address] Care Team Providers Name Role Phone Albert Zuleta MD Primary Care Provider Encounter Details Date Type Department Care Team Description 07/04/[address] [facility] [place]quis Christopher, [facility] [place] [address] [facility] [phone] UROLOGY DEPT [place], [place] [address] (Wo rk) Social History Tobacco [...] this encounter Miscellaneous Notes Telephone Encounter - Vivienne Bernal RN - 07/04/2019 4:02 PM EST Spoke with patient about her urinalysis and order for antibiotic Keflex 500 mg four times daily for [address] Christopher. Verbalized understanding and agreed to plan. documented in this encounter Plan of Treatment Upcoming Encounters Date Type Specialty Care Team Description 03/15/2022 Office Visit Neurology Ryann Barfield APRN [facility] [address] [place] [address] 03/23/2022 Appointment Radiology Hailey Mcclendon MD [facility] [address] [place] [address] 03/23/2022 Laboratory Appointment Lab 03/23/2022 Office Visit Gastroenterology Hailey Mcclendon MD [facility] [address] [place] [place] [address] 05/23/2022 Procedure visit Maxillofacial Surgery Corby Montes MD [facility] [address] [place] [address] documented as of this encounter Visit Diagnoses Diagnosis Other symptoms and signs involving the g enitourinary system documented in this encounter Care Teams Research Environmental Scientist Relationship Specialty Start Date End Date Albert Zuleta MD PCP - General Family Medicine 01/17/17 10/26/21 [address] [place] [address] documented as of this encounter
--- OUTSIDE RECORDS SUMMARY | 2022-02-08 01:51 | XMS_ITS | Encounter Summary ---
:1960 Author Organization [facility] [place] [address] Care Team Providers Name Role Phone Albert Zuleta MD Primary Care Provider Encounter Details Date Type Department Care Team Description 11/20/2019 Orders Only Cardiology at [facility] Joni Drew [place] [phone] Cardiology [phone] [place], [place] [address] (Wo rk) Social History Tobacco [...] 03/15/2022 Office Visit Neurology Ryann Barfield, [facility] [address] [place] [address] 03/23/2022 Appointment Radiology Hailey Mcclendon MD [facility] [place] [address] 03/23/2022 Laboratory Appointment Lab 03/23/2022 Office Visit Gastroenterology Hailey Mcclendon MD [facility] [place] [address] 05/23/2022 Procedure visit Maxillofacial Surgery Corby Montes MD [facility] [address] [place] [address] documented as of this encounter Visit Diagnoses Not on filedocumented in this encounter Care Teams Parts Counter Representative Relationship Specialty Start Date End Date Albert Zuleta MD PCP - General Family Medicine 01/17/17 10/26/21 [place] [address] documented as of this encounter
--- OUTSIDE RECORDS SUMMARY | 2022-02-08 01:51 | XMS_ITS | Encounter Summary ---
:1960 Author Organization [facility] [place] [address] Care Team Providers Name Role Phone Albert Zuleta MD Primary Care Provider Encounter Details Date Type Department Care Team Description 11/20/2019 TH Visit Gastroenterology at [facility] Hailey Mcclendon, Cirrhosis of liver (TeleHealth) [facility] Maciel lorenzana MD without ascites, [place] [address] [facility] Medical unspecified hepatic [phone] [place] [address] Social History Tobacco Use Types Packs/Day Years [...] documented as of this encounter Progress Notes Hailey Mcclendon MD - 11/20/2019 9:30 AM EDT GASTROENTEROLOGY TELEMEDICINE PROGRAM - ESTABLISHED PATIENT VISIT Chief Complaint: Blossom Samayoa is a 58 [address] of [address] Zuleta here for follow-up of cirrhosis. 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 HCC screening - Negative CT 03/2019 Interval history: She developed a kidney stone last year. She reports she feels like she is trying to pass part of it. She reports having pain having a steady ache in her RUQ after eating something sweet or fatty for a few hours. She reports occasional LUQ pain as well. No fever, jaundice, melena, vomiting, ascites, or hepatic encephalopathy. Review of systems: 14-point review of systems reviewed and negative except as above. Medications: Outpatient Medications Prior to Visit Medication Sig Dispense Refill ??? amitriptyline (Elavil) 50 mg Tablet Take [...] ONE TABLET BY MOUTH DAILY 3 No facility-administered medications prior to visit. Allergies: is allergic to ketamine; anafranil [clomipramine]; augmentin [amoxicillin-pot clavulanate]; erythromycin; macrobid [nitrofurantoin monohyd/m- cryst]; and sulfa (sulfonamide antibiotics). 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 Past Surgical History: has a past surgical history that includes Cystoscopy, Insert Ureteral Stent (94251) (Right, 07/10/2018); Cystourethroscopy, Ureter Catheter (14788) (Right, 07/10/2018); Percutaneous Nephrostolithotomy/Pyelostolithotomy > 2 Cm (52798) (Right, 09/26/2018); Cysto W Ureteroscopy &/Or Pyeloscopy, Dx (74257) (Right, 09/26/2018); Cystoscopy, Remv Calculus, Complic (18040) (Right, 09/26/2018); [facility] Nephrostomy Cath Prq New Access Rs&I (18903) (Right, 09/26/2018); Cystourethroscopy,Ureter Catheter (42460) (Right, 09/26/2018); Ultrasonic Guidance, Intraoperative (50918) (Right, 09/27/19 19); Fluoroscopy Exam Up To 1 Hr y Or [facility] Care Prov (79253) (N/A, 09/26/2018); Percutaneous Nephrostolithotomy/Pyelostolithotomy > 2 Cm (05110) (Left, 11/07/2018); [facility] Nephrostomy Cath Prq New Access Rs&I (05053) (Left, 11/07/2018); Cysto W Ureteroscopy &/Or Pyeloscopy, Dx (92699) (Left, 11/07/2018); Us, Head, Real Time (60769) (Left, 11/07/2018); [facility] Hr [facility] (92731) (N/A, 11/07/2018); Renal Endoscopy, Treatment (09551) (Left, 11/07/2018); Exploratory Of Abdomen (35782) (N/A, 01/05/2019); Freeing Bowel Adhesion, Enterolysis (73624) (N/A, 01/05/2019); Exploratory Of Abdomen (17266) (N/A, 01/07/2019); Resect Small Intest, Singl Resec/Anas (41109) (N/A, 01/07/2019); IR All Drainage Procedures (02/20/2019); IR Drain Check/Change/Remove (03/07/2019); Colonoscopy, Remv Natividad, Snare (76943) (N/A, 03/26/2019); IR Biopsy Liver Percutaneous (07/01/2019); Explore Parathyroid Glands (13084) (N/A, 08/12/2019); and Needle Electromyography, Larynx Global (84324) (N/A,08/12/2019). Family History: family history includes Anesthesia Reaction in her father; Cancer in her father and sister. Social History: reports that she quit smoking about 3 years ago. Her smoking use included cigarettes. She has a 30.00 pack-year smoking history. She has never used smokeless tobacco. She reports current drug use. Drug: Marijuana. She reports that she does not drink alcohol. No Physical Examination performed during this telemedicine visit Laboratory studies, imaging, and procedures (my review of prior records): Laboratory Appointment on 09/25/2019 Component Date Value Ref Range Status ??? 25-OH Vit D Total 09/25/2019 24* 30 - 100 ng/mL Final ??? PTH 09/25/2019 11* 15 - 65 pg/mL Final ??? Vit D 1,25 09/25/2019 37 18 - 78 pg/mL Final ??? Phosphorus 09/25/2019 3.7 2.5 - 4.5 mg/dL Final ? ? AFP 09/25/2019 <1.9 <=8.3 ng/mL Final ??? PT 09/25/2019 12.8* 9.4 - 12.5 sec Final ??? INR 09/25/2019 1.1 Final ??? Glucose Lvl 09/25/2019 262* 65 - 199 mg/dL Final ??? BUN 09/25/2019 14 8 - 18 mg/dL Final ??? Creatinine 09/25/2019 0.72 0.70 - 1.20 mg/dL Final ??? Sodium 09/25/2019 139 135 - 145 mmol/L Final ??? Potassium 09/25/2019 4.4 3.5 - 5.0 mmol/L Final ??? Chloride 09/25/2019 101 98 - 107 mmol/L Final ??? CO2 09/25/2019 21* 22 - 31 mmol/L Final ??? Anion Gap 09/25/2019 17* 5 - 15 mmol/L Final ??? Calcium 09/25/2019 10.1 8.5 - 10.5 mg/dL Final ??? Total Protein 09/25/2019 7.9 6.1 - 8.0 gm/dL Final ??? Albumin 09/25/2019 4.7 3.2 - 5.2 gm/dL Final ??? AST 09/25/2019 42* 0 - 30 unit/L Final ??? ALT 09/25/2019 38* 0 - 30 unit/L Final ??? Alk Phos 09/25/2019 100 35 - 105 unit/L Final ??? Total Bilirubin 09/25/2019 0.9 0.2 - 1.3 mg/dL Final ? ? eGFR 09/25/2019 92 >=60 mL/min/1.73 m?? Final ? ? eGFR 09/25/2019 106 >=60 mL/min/1.73 m?? Final ??? WBC 09/25/2019 9.8* 4.0 - 9.5 x10(3)/mcL Final ??? RBC 09/25/2019 3.94* 4.00 - 5.21 x10(6)/mcL Final ??? Hemoglobin 09/25/2019 12.3 11.7 - 15.5 gm/dL Final ??? Hematocrit 09/25/2019 37.3 35.7 - 45.8 % Final ??? MCV 09/25/2019 94.7* 82.6 - 94.4 fL Final ??? MCH 09/25/2019 31.2 27.1 - 32.0 pg Final ??? MCHC 09/25/2019 33.0 31.7 - 35.0 gm/dL Final ??? Platelets 09/25/2019 204 145 - 357 x10(3)/mcL Final ??? RDWSD 09/25/2019 42.4 37.0 - 46.0 fL Final ??? RDWCV 09/25/2019 12.2 11.5 - 14.1 % Final ??? MPV 09/25/2019 10.3 7.6 - 12.9 fL Final ??? nRBC % Auto 09/25/2019 0.0 % Final ??? nRBC Abs Auto 09/25/2019 0.000 0.000 - 0.000 x10(3)/mcL Final ??? Neutrophils % 09/25/2019 55.2 % Final ??? Neutr Abs (ANC) 09/25/2019 5.40 1.70 - 6.10 x10(3)/mcL Final ??? Lymphocytes % 09/25/2019 37.0 % Final ??? Lymphocytes Abs 09/25/2019 3.6* 0.9 - 3.2 x10(3)/mcL Final ??? Monocytes % 09/25/2019 5.6 % Final ??? Monocyte Abs 09/25/2019 0.6 0.3 - 0.9 x10(3)/mcL Final ??? Eosinophils % 09/25/2019 1.5 % Final ??? Eosinophils Abs 09/25/2019 0.2 0.0 - 0.4 x10(3)/mcL Final ??? Basophils % 09/25/2019 0.4 % Final ??? Basophils Abs 09/25/2019 0.0 0.0 - 0.1 x10(3)/mcL Final ??? Immature Gran % 09/25/2019 0.30 % Final ??? 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 She is well compensated. Repeat CBC, CMP, and INR in December 2019. ?? #2 At risk for HCC Ultrasound and AFP every 6 months. Due in 09/2019, but was delayed due to COVID, will attempt to schedule now. ?? #3 At risk for esophageal varices As her platelet count is >150, Fibroscan had a kPa >20. She is currently on carvedilol 3.25 mgtwice daily. Will discuss with her carpentry instructor whether she could be tried treated upwards to a goaldose of 12.5 mg twice daily, and therefore avoid the need for a screening endoscopy. Recommendations: Recommend labs and screening ultrasound in December 2019. Discussed with cardiology increasing her carvedilol to a goal dose of 12.5 mg twice daily in order to avoid upper endoscopy. Patient verbally consents to this telephone visit and understands that this visit may be billed, similar to a clinic office visit. I provided care to the patient today via telephone call, 22 minutes telephone visit was spent in discussion with patient on above. Hailey Mcclendon MD Ltac, [facility] [address] [place] [id number] documented in this encounter Plan of Treatment Upcoming Encounters Date Type Specialty Care Team Description 03/15/2022 Office Visit Neurology Ryann Barfield APRN [facility] [address] [place] [address] 03/23/2022 Appointment Radiology Hailey Mcclendon MD [facility] [address] [address] 03/23/2022 Laboratory Appointment Lab 03/23/2022 Office Visit Gastroenterology Hailey Mcclendon MD [facility] [address] [place] [address] 05/23/2022 Procedure visit Maxillofacial Surgery Corby Montes MD [facility] [address] [place] [place] [address] documented as of this encounter Visit Diagnoses Diagnosis Cirrhosis of liver without ascites, unsp ecified hepatic cirrhosis type documented in this encounter Care Teams Steel Handler Relationship Specialty Start Date End Date Albert Zuleta MD PCP - General Family Medicine 01/17/17 10/26/21 [place] [address] documented as of this encounter
--- OUTSIDE RECORDS SUMMARY | 2022-02-08 01:51 | XMS_ITS | Encounter Summary ---
:1960 Author Organization [facility] [place] [address] Care Team Providers Name Role Phone Albert Zuleta MD Primary Care Provider Reason for Visit Reason Comments Nephrolithiasis Encounter Details Date Type Department Care Team Description 07/01/2019 Office Visit Urology at [facility] Meghana Galvin Jr., Nephrolithiasis [facility] [place] [address] [facility] [phone] UROLOGY DEPT. [place], [place] [address] (Wo rk) Social History Tobacco [...] Sign Reading Time Taken Comments Blood Pressure 150/73 07/01/2019 3:21 PM EST Pulse 69 07/01/2019 3:21 PM EST Temperature - - Respiratory Rate - - Oxygen Saturation - - Inhaled Oxygen Concentration - - Weight - - Height - - Body Mass Index - - documented in this encounter Progress Notes Meghana Galvin Jr., MD - 07/01/2019 4:00 PM EST Images from the original note were not included. HPI: Blossom Samayoa is a 58 y.o.woman who returns to multi-disciplinary metabolic stone clinic for urologic follow up regarding mixed CaOx / CaPhos urolithiasis. She reports prior history of sarcoidosis and has suspected hyperPTH. ?? She had been??admitted to the Medicine Service on 07/09/2019 for nausea, vomiting, leukocytosis and UTI. CT showed right hydronephrosis, large??right UPJ stone and obstructing??right UVJ stone, as wellas a large left renal stone burden which was non-obstrcuting. Urology took her to the OR and placed a right ureteral stent with Dr. Sears on 07/09/2019. Urine cultures from [facility] showed Proteus Mirabilis. Blood cultures at [facility] showed no growth. She was discharged on a two-week course of Cefpodoxime.During this hospital stay, she was counseled on and consented for right-PCNL in August, which has been scheduled for 09/05/2018. We also discussed the possibility of left PCNL a few months later.? She??underwent right PCNL with u/s guided access??on??09/26/18. ??Intraoperative findings were notablefor encrusted right ureteral stent as well as large upper pole stones.?She??had a ??postoperativecourse notable for??proteus??urosepsis??and was discharged home on 2 week course of iv cefepime. ?? She underwent left PCNL on 11/07/18. Intraoperative findings were notable for large renal stone and several smaller stones seen in lower pole calyx on retrograde ureteroscopy, >2cm total stone burden Postop CT confirmed she had been rendered stone free bilaterally. In the interval since her last visit, she denies witnessed stone passage or suspected renal colic. She reports she had a urinary tract infection several months ago. She notes recently she has noted increased urinary urgency and and is concerned that she may have a recurrent urinary tract infection. ? Review of Systems Constitution: Negative for fever. Gastrointestinal: Negative for abdominal pain. Genitourinary: Positive for urgency. Negative for flank pain. Past Medical History: Cardiomyopathy Diabetes Depression HTN HLD MOSES Chronic pain Nephrolithiasis - has had several lithotripsies in the past ?? Past Surgical History: Lithotripsies Open cholecystectomy Open total hysterectomy ??Right PCNL ?? Family History: No family history of kidney stones ?? Social History Lives alone Former smoker No EtOH ?? Prior Stone Analysis:?? 60% Calcium phosphate 20% Magnesium ammonium phosphate (struvite) 10% Calcium oxalate dihydrate 10% Calcium carbonate?Physical Exam Constitutional: She is oriented to person, place, and time. She appears well- developed and well-nourished. No distress. HENT: Head: Normocephalic and atraumatic. Cardiovascular: Normal rate. Pulmonary/Chest: Effort normal. No respiratory distress. Abdominal: Soft. She exhibits no distension. There is no tenderness. There is no rebound. Genitourinary: Genitourinary Comments: No CVA tenderness to percussion bilaterally Neurological: She is alert and oriented to person, place, and time. Skin: Skin is warm and dry. She is not diaphoretic. Psychiatric: She has a normal mood and affect. Her behavior is normal. Vitals reviewed. Imaging studies. I independently reviewed the CAT scan from March 2019. This reveals no evidenceof residual renal stones or hydronephrosis or hydroureter. ?? Stone Analysis(10/2018): 60% Calcium phosphate (apatite); 30% Calcium oxalate dihydrate;10% Calcium oxalate monohydrate Labs: ?24 hour urine ? Impression/Plan: No evidence of residual stone or hydronephrosis. 1) Marked hypercalciuria. Discussed may be related to hyperPTH or sarcoidosis. She has seen Dr Mcmahon and has suspected hyperparathyroidism. She is scheduled for neck exploration and parathyroidectomy in July 2019. She will collect a follow-up 24-hour urine 6 weeks after parathyroidectomy to assess for resolution of urinary abnormalities. -she will revisit with Dr Akers today in multi-disciplinary metabolic stone clinic regarding management of hypercalciuria in setting of intermittent hypercalcemia, with history of sarcoidois. ?? 2)Hyperoxaluria. We discussed a lower oxalate diet 3) suspected urinary tract infection. Urine is been sent for urinalysis and culture. Treatment pending results. 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 We will plan repeat renal ultrasound in approximately 4 to 6 months. documented in this encounter Plan of Treatment Upcoming Encounters Date Type Specialty Care Team Description 03/15/2022 Office Visit Neurology Ryann Barfield, [facility] [place] [address] 03/23/2022 Appointment Radiology Hailey Mcclendon MD [facility] [address] [place] [address] 03/23/2022 Laboratory Appointment Lab 03/23/2022 Office Visit Gastroenterology Hailey Mcclendon MD [facility] [address] [place] [address] 05/23/2022 Procedure visit Maxillofacial Surgery Corby Montes MD [facility] [address] [place] [address] documented as of this encounter Procedures Procedure Name Priority Date/Time Associated Diagnosis Comme [facility] URINE CULTURE Routine 07/01/2019 4:07 PM Nephrolithiasis Re sults for this EST procedure are i n the results section. documented in this encounter Results US Retroperitoneal Complete (12/30/2019 10:54 AM EDT) [...] questions regarding this report, please contact t mychal number below. Electronically signed by: Tasia carpenter MD, [facility] ([phone]), at 12/30/2019 10:58 AM ?Tasia Giron, Staff Physician Electronically Signed Final Report ?? 11:06 am Narrative 12/30/2019 11:06 AM EDT Renal ? (Signed Final 12/30/2019 11:06 am) PATIENT INFO: ID #: ? [id number] ?: ??[birth year] (59 yrs)(F) Name: ? BLOSSOM Ray ? Visit Date: 12/30/2019 10:45 am ? TARA PERFORMED BY: Performed By: ? Maxine Miranda RDMS Attending: ?Bree RUIZ, Ayanna Bourgeois Resident: ? Jeanne RUIZ, Brii Givens Referred By: ?MEGHANA Bhatt LISA Location: ? [place] SERVICE(S) PROVIDED: ??URETRO - Retroperitoneal Complete - I [id number] ? [id number] INDICATIONS: ???stone RIGHT KIDNEY: Size (cm) ?L: [...] 11:06 am ) PATIENT INFO: ID #: [id number] : 58 (59 y rs)(F) Name: BLOSSOM Ray Visit Date: 12/30/2019 10:45 am TARA PERFORMED BY: Performed By: Maxine Miranda RDMS Attending: Tasia Giron MD Resident: Cindi Angel MD Referred By: MEGHANA GALVIN JR Location: [place] SERVICE(S) PROVIDED: URETRO - Retroperitoneal Complete - [facility] 3517 [id number] INDICATIONS: ?stone RIGHT KIDNEY: Size (cm) L: [...] 12/29 11:06 am Meghana Galvin Jr., MD [facility] GEN ORDERABLES (ABNORMAL) Urine culture Clean Catch Urine (07/01/2019 4:07 PM EST) [facility] Method Time Signature Urine Culture 50,000-99,000 cfu/ml Escherichia coli HAILEY 1,000-9,000 cfu/ml mixed mucosal rasta [place] [facility] Organism Escherichia HAILEY coli (A) [facility] Specimen (Source) Anatomical Collection Method Collection Time Re ceived Time Location / / Volume Laterality Urine specimen 07/01/2019 4:07 07/01/2019 6:40 obtained by clean PM EST PM EST catch procedure (specimen) Resulting Agency Comment Spec In Lab Organism Antibiotic Method Susceptibility Escherichia coli Amikacin MICROSCAN METHOD Sensitive Escherichia coli Amoxicillin + Clavulanate MICROSCAN METHOD Sens itive Escherichia coli Ampicillin MICROSCAN METHOD Resistant Escherichia coli Ampicillin + Sulbactam MICROSCAN METHOD Resista nt Escherichia coli Aztreonam MICROSCAN METHOD Sensitive Escherichia coli Cefazolin MICROSCAN METHOD Sensitive Escherichia coli Cefepime MICROSCAN METHOD <=2: Sensitive Escherichia coli Cefpodoxime MICROSCAN METHOD Sensitive Escherichia coli Ceftazidime MICROSCAN METHOD <=2: Sensitive Escherichia coli Ceftriaxone MICROSCAN METHOD Sensitive Escherichia coli Cefuroxime MICROSCAN METHOD Sensitive Escherichia coli Ciprofloxacin MICROSCAN METHOD Resistant Escherichia coli Ertapenem MICROSCAN METHOD Sensitive Escherichia coli Gentamicin MICROSCAN METHOD Resistant Escherichia coli Levofloxacin MICROSCAN METHOD Resistant Comment: Levofloxacin and Ciprofloxac in may not adequately treat infections in critically ill patients even when isolates test susceptible in the laboratory. Contact Infectious Disease b efore using in critically ill patients. Escherichia coli Meropenem MICROSCAN METHOD <=1: Sensitive Escherichia coli Nitrofurantoin MICROSCAN METHOD Sensitive Escherichia coli Piperacillin/Tazobactam MICROSCAN METHOD <=8: S ensitive Escherichia coli Tetracycline MICROSCAN METHOD Sensitive Escherichia coli Tobramycin MICROSCAN METHOD Intermediate Escherichia coli Trimethoprim/Sulfa MICROSCAN METHOD Resistant Meghana Galvin Jr., MD MICROBIOLOGY - GENERAL ORDER ELINA Performing Organization Address City/State/Z[place] [address] documented in this encounter Visit Diagnoses Diagnosis Nephrolithiasis Calculus of kidney Nephrolithiasis Calculus of kidney Hepatic cirrhosis, unspecified hepatic c irrhosis type, unspecified whether ascites present documented in this encounter Care Teams Solution Sales Senior Executive Relationship Specialty Start Date End Date Albert Zuleta MD PCP - General Family Medicine 01/17/17 10/26/21 [place] [address] documented as of this encounter
--- OUTSIDE RECORDS SUMMARY | 2022-02-08 01:51 | XMS_ITS | Encounter Summary ---
:1960 Author Organization [facility] [place] [address] Care Team Providers Name Role Phone Albert Zuleta MD Primary Care Provider Encounter Details Date Type Department Care Team Description 07/01/2019 Laboratory Appointment Lab 3L Krishna oGmez Hepatosplenomegaly; [facility] [place] [id number] Social History Tobacco Use Types Packs/Day Years [...] [facility] [address] [place], [place] [address] 03/23/2022 Appointment Radiology Krishna Mcclendon MD [facility] [place] [address] 03/23/2022 Laboratory Appointment Lab 03/23/2022 Office Visit Gastroenterology Krishna Mcclendon MD [facility] [place] [address] 05/23/2022 Procedure visit Maxillofacial Surgery Corby Montes MD [facility] [address] [place] [address] documented as of this encounter Procedures Procedure Name Priority Date/Time Associated Comments Diagnosis HC PROTHROMBIN TIME STAT 07/01/2019 7:43 AM Hepatospl enomegaly Results for this EST Pre-op testing procedure are in the results section. HC PLATELET COUNT STAT 07/01/2019 7:43 AM Hepatosplen omegaly Results for this EST Pre-op testing procedure are in the results section. documented in this encounter Results Platelet count (07/01/2019 7:43 AM EST) athologist Signature Platelets 233 145 - 357 [facility] x10(3)/[facility] LABORATORY Plat Immature 2.2 0.0 - 7.4 KRISHNA MONICA % % [facility] Comment: Limitation of the Immature Platelet Frac tion (IPF)-May be less reliable when the platelet count is less than 87j322/u L due to statistical imprecision. The IPF [...] in a decreased state of production. References: [employer] The Clinical Value of the Immature Platelet Fraction (IPF) in Cell Recovery Document Number [id number] 12/2010 [employer] The Role of the Imm ature Platelet Fraction (IPF) in the Differential Diagnosis of Thrombocytopen ia, Document [id number] V05/07/05 P012/03 Specimen Anatomical Collection Method Collection Time Receive d Time (Source) Location / / Volume Laterality Blood specimen 07/01/2019 7:43 AM 019 7:47 (specimen) EST AM EST Resulting Agency Comment Spec In Lab Krishna Mcclendon MD HEMATOLOGY ORDERABLES Performing Organization Address City/[facility]/[place] [address] Prothrombin Time (07/01/2019 7:43 AM EST) P athologist Signature PT 12.2 9.4 - 12.5 [facility] LABORATORY INR 1.0 [facility] Comment: An INR <2.0 indicates adequate [...] EST Resulting Agency Comment Spec In Lab Krishna Mcclendon MD HEMATOLOGY ORDERABLES Performing Organization Address City/[facility]/[place] [address] documented in this encounter Visit Diagnoses Diagnosis Hepatosplenomegaly Other chronic nonalcoholic liver disease Pre-op testing Preoperative examination, unspecified documented in this encounter Care Teams Shell Assembler Relationship Specialty Start Date End Date Albert Zuleta MD PCP - General Family Medicine 01/17/17 10/26/21 [place] [address] documented as of this encounter
--- OUTSIDE RECORDS SUMMARY | 2022-02-08 01:51 | XMS_ITS | Encounter Summary ---
:1960 Author Organization [facility] [place] [address] Care Team Providers Name Role Phone Albert Zuleta MD Primary Care Provider Encounter Details Date Type Department Care Team Description 08/15/2019 Telephone General Surgery at [facility] Anne Gonzales, MANAGER [place] [facility] [place] [address] GENERAL SURGERY [phone] [place] [phone] (Wo rk) Social History Tobacco Use Types [...] this encounter Miscellaneous Notes Telephone Encounter - Anne Gonzales APRN - 08/15/2019 3:36 PM EST I called Ms. Blossom Samayoa today to discuss the results of her pathology. Specifically, this demonstrated: A - Left lower parathyroid, for frozen section: - Parathyroid gland. She is doing well. Her voice sounds normal. She is not complaining of perioral numbness/tingling, numbness/tingling in the hands, or muscle spasms. She had 2 days of diarrhea, felt dehydrated. She has been able to drink fluids today. Feeling better. She will taper off her calcium supplementation. I answered her questions, and we will discuss further at her regularly-scheduled postoperative follow up appointment. Anne Gonzales APRN documented in this encounter Plan of Treatment Upcoming Encounters Date Type Specialty Care Team Description 03/15/2022 Office Visit Neurology Ryann Barfield APRN [facility] [address] [place], [place] [address] 03/23/2022 Appointment Radiology Hailey Mcclendon MD [facility] [address] [place] [address] 03/23/2022 Laboratory Appointment Lab 03/23/2022 Office Visit Gastroenterology Hailey Mcclendon MD [facility] [place] [address] 05/23/2022 Procedure visit Maxillofacial Surgery Corby Montes MD [facility] [place] [address] documented as of this encounter Visit Diagnoses Not on filedocumented in this encounter Care Teams Translator Relationship Specialty Start Date End Date Albert Zuleta MD PCP - General Family Medicine 01/17/17 10/26/21 [place] [address] documented as of this encounter
--- OUTSIDE RECORDS SUMMARY | 2022-02-08 01:51 | XMS_ITS | Encounter Summary ---
:1960 Author Organization [facility] [place] [address] Care Team Providers Name Role Phone Albert Zuleta MD Primary Care Provider Encounter Details Date Type Department Care Team Description 12/26/2019 Telephone Cardiology at [facility] Ida Gomez, [place] [address] Social History Tobacco Use Types Packs/Day [...] this encounter Miscellaneous Notes Telephone Encounter - Ida Gomez, RN - 12/26/2019 10:21 AM EDT Patient called to report that she has been having increased frequency of a fluttering feeling in herchest and her heart pounding when she wakes up. She says she has had these episodes before over the years but not as much like now. They last only a few seconds and are random through the day or week. Patient wonders if her Coreg dose should be adjusted or what she can do. She has several appointments lined up on 12/30/19 but she says she is going to have to reschedule all of them because she was toldthere are no volunteers who could help her with a wheelchair ( she has difficulty walking long distances) and also a scooter would likely not be available to her as it's first come first served. She also does not have anyone who could accompany her for the whole days' events. Last THC 11/06/19 reviewed. Ida Maldonado RNsales trainee [facility] documented in this encounter Plan of Treatment Upcoming Encounters Date Type Specialty Care Team Description 03/15/2022 Office Visit Neurology Ryann Barfield APRN [facility] [address] [place], [place] [address] 03/23/2022 Appointment Radiology Hailey Mcclendon MD [facility] [address] [place] [address] 03/23/2022 Laboratory Appointment Lab 03/23/2022 Office Visit Gastroenterology Hailey Mcclendon MD [facility] [address] [place] [address] 05/23/2022 Procedure visit Maxillofacial Surgery Corby Montes MD [facility] [place] [address] documented as of this encounter Visit Diagnoses Not on filedocumented in this encounter Care Teams Bioinformatics Programmer Relationship Specialty Start Date End Date Albert Zuleta MD PCP - General Family Medicine 01/17/17 10/26/21 [place] [address] documented as of this encounter
--- OUTSIDE RECORDS SUMMARY | 2022-02-08 01:51 | XMS_ITS | Encounter Summary ---
:1960 Author Organization [facility] Address [address] [place] [address] Care Team Providers Name Role Phone Albert Zuleta MD Primary Care Provider Reason for Visit Reason Comments Follow-up Encounter Details Date Type Department Care Team Description 09/25/2019 Office Visit General Surgery at Anne Gonzales, S/P parathyroidectomy [facility] SUPERVISOR TELE[employer]ONE [employer] [facility] [address] [place] GENERAL SURGERY [address] [place] [address] [phone] Social History Tobacco Use Types Packs/Day Years [...] - Inhaled Oxygen Concentration - - Weight 135.2 kg (298 lb) 09/25/2019 11:13 AM EST Height - - Body Mass Index 48.1 06/13/2019 2:48 PM EST documented in this encounter Progress Notes Anne Gonzales APRN - 09/25/2019 11:20 AM EST Parathyroidectomy Post-Op Visit Subjective: Ms. Blossom Samayoa is a very pleasant 58 y.o. year old female who is 6 weeks s/p left lower parathyroidectomy for primary hyperparathyroidism. She is doing very well without complaints. She is not having hypocalcemic symptoms or issues with pain or difficulty swallowing. Exam: There were no vitals filed for this visit. Healing anterior neck incision with underlying healing ridge. No hematoma or seroma. Voice appears normal. Pathology results: A - Left lower parathyroid, for frozen section: - Parathyroid gland. Labs: Lab Results Component Value Date CALCIUM 10.1 09/25/2019 Assessment and Plan: Ms. Blossom Samayoa is a very pleasant 58 y.o. year old female s/p targeted parathyroidectomy forprimary hyperparathyroidism who is doing very well post- operatively without evidence of complications. I discussed the pathology results with the patient and recommended no further treatment. Calcium was checked today and was normal. She does not need to continue taking post-operative supplemental doses of calcium and vitamin D. I did encourage her to discuss calcium supplementation for general bone health purposes with her PCP. I explained that she should have her serum calcium checked annually, and that we do not need to follow PTH levels unless her calcium level rises again. I discussed scar massage with vitamin E to aid in incisional appearance and discussed the importanceof UV light protection on scar healing. Overall, she is doing very well post-operatively and I recommended follow up with me on an as neededbasis hereafter. Anne Gonzales APRN documented in this encounter Plan of Treatment Upcoming Encounters Date Type Specialty Care Team Description 03/15/2022 Office Visit Neurology Ryann Barfield APRN [facility] [address] [place], [place] [address] 03/23/2022 Appointment Radiology Hailey Mcclendon MD [facility] [place] [address] 03/23/2022 Laboratory Appointment Lab 03/23/2022 Office Visit Gastroenterology Hailey Mcclendon MD [facility] [place] [address] 05/23/2022 Procedure visit Maxillofacial Surgery Corby Montes MD [facility] [place] [address] documented as of this encounter Visit Diagnoses Diagnosis S/P parathyroidectomy Other postprocedural status documented in this encounter Care Teams Room Service Bellhop Relationship Specialty Start Date End Date Albert Zuleta MD PCP - General Family Medicine 01/17/17 10/26/21 [place] [address] documented as of this encounter
--- OUTSIDE RECORDS SUMMARY | 2022-02-08 01:51 | XMS_ITS | Encounter Summary ---
:1960 Author Organization [place] [address] Care Team Providers Name Role Phone Albert Zuleta MD Primary Care Provider Encounter Details Date Type Department Care Team Description 06/24/2019 Telephone [place] [facility] [place] [address] Social History Tobacco Use Types Packs/Day [...] this encounter Miscellaneous Notes Telephone Encounter - Latoya Bernal - 06/24/2019 11:31 AM EST Called pt to connect her with IR to schedule liver biopsy ordered by Dr. Mcclendon. If possible, Dr. Mcclendon said pt is coming in 07/01 at 4pm for another appt, so possibly earlier that day? Kelsey in IR was not available, but I left a message for her asking her to call the pt back to schedule this. Ptaware and waiting for return call. documented in this encounter Plan of Treatment Upcoming Encounters Date Type Specialty Care Team Description 03/15/2022 Office Visit Neurology Ryann Barfield APRN [facility] [address] [place] [address] 03/23/2022 Appointment Radiology Hailey Mcclendon MD [facility] [address] [place] [address] 03/23/2022 Laboratory Appointment Lab 03/23/2022 Office Visit Gastroenterology Hailey Mcclendon MD [facility] [address] [place] [address] 05/23/2022 Procedure visit Maxillofacial Surgery Corby Montes MD [facility] [address] [place] [address] documented as of this encounter Visit Diagnoses Not on filedocumented in this encounter Care Teams Utilities Manager Relationship Specialty Start Date End Date Albert Zuleta MD PCP - General Family Medicine 01/17/17 10/26/21 [place] [address] documented as of this encounter
--- OUTSIDE RECORDS SUMMARY | 2022-02-08 01:51 | XMS_ITS | Encounter Summary ---
:1960 Author Organization [facility] [place] [address] Care Team Providers Name Role Phone Albert Zuleta MD Primary Care Provider Encounter Details Date Type Department Care Team Description 12/30/2019 Office Visit Urology [place] [facility] Meghana Galvin Jr., Nephrolithiasis [facility] Maciel [place] [address] [facility] [phone] UROLOGY DEPT. [place], [place] [address] (Wo rk) Social History Tobacco [...] documented as of this encounter Progress Notes Meghana Galvin Jr., MD - 12/30/2019 11:00 AM EDT Images from the original note were not included. HPI: Blossom Samayoa is a 59 y.o.woman who returns to multi-disciplinary metabolic stone clinic for urologic follow up regarding mixed CaOx / CaPhos urolithiasis. She reports prior history of sarcoidosis and HyperPTH. She underwent parathyroidectomy in July 2019 under the care of Dr. Mcmahon. ?? She had been??admitted to the Medicine Service on 07/09/2019 for nausea, vomiting, leukocytosis and UTI. CT showed right hydronephrosis, large??right UPJ stone and obstructing??right UVJ stone, as wellas a large left renal stone burden which was non-obstrcuting. Urine culture revealed Proteus Mirabilis. ?? She??underwent right PCNL with u/s guided access??on??09/26/18. [...] the interval since her last visit, she recalls passing several stones (question right side) in October and early November 2019. She noted preceding right- sided flank pain and then had resolution of pain after passage. She did not capture any of these for analysis. Currently she is comfortable. She does note that her urine appears turbid, denies gross hematuria . She is concerned this may represent a urinary tract infection as they have previously presented in the same fashion. ?? Review of Systems Constitution: Positive for weight gain. Negative for fever. Musculoskeletal: Positive for back pain. Genitourinary: Negative for flank pain (RESOLVED). Past Medical History: Cardiomyopathy Diabetes Depression HTN [...] rate. Pulmonary/Chest: Effort normal. No respiratory distress. Genitourinary: Genitourinary Comments: No CVA tenderness to percussion bilaterally Neurological: She is alert and oriented to person, place, and time. Skin: Skin is warm and dry. She is not diaphoretic. Psychiatric: She has a normal mood and affect. Her behavior is normal. Vitals reviewed. Imaging studies. I independently reviewed the renal ultrasound from today. This reveals no evidence of residual renal stones or hydronephrosis or hydroureter. A simple renal cyst is identified in the right kidney. ?? IMPRESSION ?? 1. No renal calculus or hydronephrosis bilaterally. 2. Normal contour of the partially distended urinary bladder. Stone Analysis(10/2018): 60% Calcium phosphate (apatite); 30% Calcium oxalate dihydrate;10% Calcium oxalate monohydrate Labs: ?? Results for TARA BLOSSOM MENSAH ( ) as of 12/30/2019 11:17 Ref. Range 02/19/2019 23:55 02/21/2019 06:05 09/25/2019 10:07 Calcium Latest Ref Range: 8.5 - 10.5 mg/dL 10.8 (H) 10.2 10.1 ??24 hour urine --repeat not yet collected ? Impression/Plan: No evidence of residual stone or hydronephrosis. 1) Prior marked hypercalciuria. We again discussed that both hyperparathyroidism as well as sarcoidosis may contribute to this. She has now successfully undergone neck exploration and parathyroidectomyand her serum calcium is reduced. We will await the repeat 24-hour urine to assess urinary calcium ex cretion. She will follow-up with Dr. Valdez for nephrology follow-up today. 2)Hyperoxaluria. We had previously discussed a lower oxalate diet and will await follow-up 24-hour urine to assess the efficacy of maneuvers today. 3) suspected urinary tract infection. Urine will be sent sent for urinalysis and culture. Treatment pending results. 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 Currently no evidence of stones. I have encouraged her to capture any additional stone passage of the may be analyzed to find out current driving factors. documented in this encounter Miscellaneous Notes Addendum Note - Adela Bernal RN - 12/30/2019 11:00 AM EDT Addended by: ADELA BERNAL on: 12/30/2019 01:26 PM Modules accepted: Orders documented in this encounter Plan of Treatment Upcoming Encounters Date Type Specialty Care Team Description 03/15/2022 Office Visit Neurology Ryann Barfield APRN [facility] [address] [place], [place] [address] 03/23/2022 Appointment Radiology Hailey Mcclendon MD [facility] [address] [place] [address] 03/23/2022 Laboratory Appointment Lab 03/23/2022 Office Visit Gastroenterology Hailey Mcclendon MD [facility] [address] [place] [address] 05/23/2022 Procedure visit Maxillofacial Surgery Corby Montes MD [facility] [address] [place] [address] documented as of this encounter Procedures Procedure Name Priority Date/Time Associated Diagnosis Comme nts HC URINE CULTURE Routine 12/30/2019 3:48 PM Nephrolithiasis Re sults for this EDT procedure are i n the results [...] who have questions please contact the health critical care rn that requested your imaging first. Thank you for letting us participate in the care of this patient. If you are a health care provid er and have any questions regarding this report, please contact the number below. For patients who have ques tions, please contact the [facility] care professio nal that requested your imaging first. ? Nikki Rodriguez, Staff Physician Electronically Signed Final Report ?? 03:07 pm Narrative 12/28/2020 3:07 PM EDT Renal ? (Signed Final 12/28/2020 03:07 pm) PATIENT INFO: ID #: ? [id number] ?: ??[birth year] (60 yrs)(F) Name: ? BLOSSOM L ? Visit Date: 12/28/2020 02:33 pm ? TARA PERFORMED BY: Performed By: ? Dani Villalobos RDMS Attending: ?Michael RUIZ, Nikki Cortez Resident: ? Oracio RUIZ, John Aguilar Referred By: ?MEGHANA GALVIN JR Location: ? [place] SERVICE(S) PROVIDED: URETRO - Retroperitoneal Complete - IM [id number] ? [id number] INDICATIONS: ? new stone formation COMPARISON: Ultrasound: [...] contour Procedure Note Nikki Rodriguez MD - 12/28/2020Brennan schroeder of this note might be different from the original. Renal (Signed Final 12/28/2020 03:07 pm ) PATIENT INFO: ID #: [id number] : [id number] (60 y rs)(F) Name: BLOSSOM Ray Visit Date: 12/28/2020 02:33 pm TARA PERFORMED BY: Performed By: Agata Villalobos RDMS Attending: Nikki Rodriguez MD Resident: John Narayanan MD Referred By: MEGHANA GALVIN JR Location: [place] SERVICE(S) PROVIDED: URETRO - Retroperitoneal Complete - [facility] [id number] INDICATIONS: ? new stone formation COMPARISON: Ultrasound: [...] who have questions please contact the health critical care rn that requested your imaging first. Thank you for letting us participate in the care of this patient. If you are a health care provid er and have any questions regarding this report, please contact the number below. For patients who have ques tions, please contact the [facility] professio nal that requested your imaging first. Nikki Rodriguez, Staff Physician Electronically Signed Final Report 12/28 03:07 pm Meghana Galvin Jr., MD [facility] US GEN ORDERABLES (ABNORMAL) Urine culture Clean Catch Urine (12/30/2019 3:48 PM EDT) [facility] Method Time Signature Urine Culture 10,000-49,000 cfu/ml mixed mucosal rasta HAILEY 1,000-9,000 cfu/ml Gram Negative organisms MONICA Note: Culture shows multiple bacterial species suggesting [facility] contamination. If symptoms c ontinue to indicate urinary tract infection, submit HOSPITAL a new specimen. LABORATORY (A) Specimen (Source) Anatomical Collection Method Collection Time Re ceived Time Location / / Volume Laterality Urine specimen 12/30/2019 3:48 12/30/2019 3:48 obtained by clean PM EDT PM EDT catch procedure (specimen) Resulting Agency Comment Spec In Lab Meghana Galvin Jr., MD MICROBIOLOGY - GENERAL ORDER ELINA Performing Organization Address City/State/[place] [address] documented in this encounter Visit Diagnoses Diagnosis Nephrolithiasis Calculus of kidney Nephrolithiasis Calculus of kidney documented in this encounter Care Teams Billposter Relationship Specialty Start Date End Date Albert Zuleta MD PCP - General Family Medicine 01/17/17 10/26/21 [address] [place] [address] documented as of this encounter
--- OUTSIDE RECORDS SUMMARY | 2022-02-08 01:51 | XMS_ITS | Encounter Summary ---
:1960 Author Organization [facility] [place] [address] Care Team Providers Name Role Phone Albert Zuleta MD Primary Care Provider Reason for Referral Diagnostic Test (Routine) - Closed Specialty Diagnoses / Procedures Referred By Contact Refer red To Contact Radiology Diagnoses Hepatosplenomegaly Hailey Mcclendon MD [facility] Interventionl Rad Procedures IR Biopsy Liver Percutaneous [facility] [place] [address] [place] [address] Fax: Referral ID Status Reason Start Date Expiration Date Visits V isits Requested Authorized [id number] Closed Specialty 06/20/2019 06/19/2020 1 1 Service Requested Encounter Details Date Type Department Care Team Description 06/20/2019 Telephone [place] [facility] [place] [address] [place], [place] [id number] [phone] (Wo rk) Social History Tobacco Use Types Packs/Day Years Used Date Former Smoker Cigarettes 1 Quit: 07/23/19 17 Smokeless Tobacco: Never Used [...] encounter Miscellaneous Notes Telephone Encounter - Hailey Mcclendon MD - 06/20/2019 2:53 PM EST Reviewed her blood work which was negative for cause of hepatosplenomegaly. Recommended a liver biopsy as the next step in evaluation. documented in this encounter Plan of Treatment Upcoming Encounters Date Type Specialty Care Team Description 03/15/2022 Office Visit Neurology Ryann Barfield APRN [facility] [address] [place] [address] 03/23/2022 Appointment Radiology Hailey Mcclendon MD [facility] [place] [address] 03/23/2022 Laboratory Appointment Lab 03/23/2022 Office Visit Gastroenterology Hailey Mcclendon MD [facility] [place] [address] 05/23/2022 Procedure visit Maxillofacial Surgery Corby Montes MD [facility] [place] [address] documented as of this encounter Results IR Biopsy Liver Percutaneous [...] ?? Hailey Mcclendon MD IMG IR ORDERABLES documented in this encounter Visit Diagnoses Diagnosis Hepatosplenomegaly Other chronic nonalcoholic liver disease Hepatosplenomegaly Other chronic nonalcoholic liver disease Pre-op testing Preoperative examination, unspecified documented in this encounter Care Teams Cloth Examiner Machine Relationship Specialty Start Date End Date Albert Zuleta MD PCP - General Family Medicine 01/17/17 10/26/21 [address] [place] [address] documented as of this encounter
--- OUTSIDE RECORDS SUMMARY | 2022-02-08 01:51 | XMS_ITS | Encounter Summary ---
:1960 Author Organization [facility] [place] [address] Care Team Providers Name Role Phone Albert Zuleta MD Primary Care Provider Reason for Visit Auth/Cert Specialty Diagnoses / Procedures Referred By Contact Refer red To Contact Diagnoses Hyperparathyroidism, primary HYPERPARATHYROIDISM Procedures PRO EXPLORE PARATHYROID GLANDS PRG EMG, LARYNX PARATHYROIDECTOMY OR EXPLORATION OF PARATHYROID(S) (WRVU 15.6) FACIAL NERVE MONITORING, SETUP LARYNGEAL (WRVU 1.57) Referral ID Status Reason Start Date Expiration Date Visits Requ ested Visits Authorized [id number] 1 1 Encounter Details Date Type Department Care Team Description 08/12/2019 Surgery Main Operating Room Duyen Luu RATHYROIDECTOMY OR Hailey Estrada MD EXPLORATION OF [facility] PARATHYROID(S) (WRVU 15.6) [facility] [address] GENERAL SURGERY [place], [place] [id number] [phone] Social History Tobacco Use Types Packs/Day Years [...] Sign Reading Time Taken Comments Blood Pressure 100/83 08/12/2019 12:56 PM EST Pulse 65 08/12/2019 12:56 PM EST Temperature 36.7 ??C (98.1 ??F) 08/12/2019 12:56 PM EST Respiratory Rate 18 08/12/2019 12:56 PM EST Oxygen Saturation 98% 08/12/2019 12:56 PM EST Inhaled Oxygen Concentration - - Weight 131.5 kg (290 lb) 08/12/2019 12:56 PM EST Height - - Body Mass Index 46.81 06/13/2019 2:48 PM EST documented in this encounter Discharge Summaries Kiko Summers MD - 08/13/2019 8:20 AM EST General Surgery Inpatient - Discharge Summary Patient Name: Blossom Samayoa Patient Age: 58 y.o. Birthdate: 1960 Admit date: 08/12/2019 Discharge date: 08/13/2019 Admitting Physician: Duyen Luu MD Primary Diagnosis: Primary hyperparathyroidism Secondary Diagnosis: Active Hospital Problems Diagnosis ??? Hyperparathyroidism, primary Resolved Hospital Problems No resolved problems to display. Active Non-Hospital Problems Diagnosis ??? Abscess ??? Shock ??? Renal calculus, left ??? HTN (hypertension) ??? Gastroesophageal reflux ??? PTSD (post-traumatic stress disorder) ??? COPD (chronic obstructive pulmonary disease) ??? Asthma ??? Anxiety ??? Depression ??? Former smoker ??? Chronic prescription opiate use ??? Ventral hernia ??? Nephrolithiasis ??? Cardiomyopathy ??? Type 2 diabetes mellitus, without long-term current use of insulin ??? History of herpes simplex infection ??? LBBB (left bundle branch block) ??? Morbid obesity with BMI of 50.0-59.9, adult ??? Sarcoidosis HPI: Ms. Samayoa is a 58-year-old woman with a history significant for nephrolithiasis and what appears to be a normal hormonal variant of primary hyperparathyroidism. ??Sestamibi scan and cervical ultrasound have been nonlocalizing??(there is a finding in the left central neck--pictured above--that is not classic for a parathyroid). ??The labs obtained in December support the diagnosis of primary hyperparathyroidism, as hypercalcemia related to a granulomatous disease like sarcoidosis (which she does have a history of) would likely be associated with a high 1, 25-OH vitamin D level, which she does nothave. ??Her nephrolithiasis is an indication for surgery. ??She will likely??require a bilateral exploration with possible subtotal parathyroidectomy, and we have discussed this extensively. ?? Operations/Major Procedures: Operations: 08/12/2019 Surgeon(s) and Role: * Duyen Luu MD - Primary * Kiko Summers MD - Resident: Procedure(s): PARATHYROIDECTOMY OR EXPLORATION OF PARATHYROID(S) (WRVU 15.6) FACIAL NERVE MONITORING, SETUP LARYNGEAL (WRVU 1.57) Operative Findings: enlarged left lower parathyroid. Left RLN signal intact. Hospital Course: Blossom Samayoa was taken to the operating room where the above procedures were performed. She tolerated the operation well and without complication. She was admitted post-operatively for clinical monitoring and further management. The patient's hospital course was uncomplicated and she was deemed stable for discharge on post-operative day 1. Important Studies and Lab Data: none Pending Lab Data at Discharge: none Studies: none Discharge Exam: Last value Range last 12 hrs Temperature Temp: 36.6 ??C (97.9 ??F) Temp: [36.6 ??C (97.9 ??F)-36.7 ??C (98.1 ??F)] Heart Rate Heart Rate: 66 Heart Rate: [64-69] Blood Pressure BP: 119/51 BP: (119-137)/(51-74) Respiratory Rate Resp: 20 Resp: [18-20] SpO2 SpO2: 97 % SpO2: [97 %-98 %] I/Os: I/O last 3 completed shifts: In: 1987 [P.O.:1380; I.V.:500; IV Piggyback:108] Out: 2102 [Urine:2100; Blood:3] No intake/output data recorded. Gen: NAD, alert & oriented x3 Neck: incision c/d/i, no swelling/hematoma Pulm: CTAB, no crackles/wheezes Card: RRR, no m/r/g Discharge Plans: Discharge to: Home Discharge Conditions/Prognosis: Stable Discharge Medications: The following medications have been prescribed for you. If you notice any adverse reactions to your medications, please contact your primary care physician immediately or go to the nearest Emergency Department. Your Medications New Medications Dose Details calcium citrate 200 mg (950 mg) Tab Commonly known as: Calcitrate Take 1 tablet by mouth 3 times daily. 950 mg Refills: 0 cholecalciferol (Vitamin D3) 400 unit Tab Commonly known as: Vitamin D3 Take 2 tablets by mouth 3 times daily. 800 Units Quantity: 90 tablet Refills: 3 ibuprofen 600 mg Tab Commonly known as: Advil;Motrin Take 1 tablet by mouth every 6 hours as needed for Pain. 600 mg Quantity: 30 tablet Refills: 12 Continued medications, unchanged Dose Details acetaminophen 500 mg Tab Commonly known as: Tylenol Take 1,000 mg by mouth every 6 hours as needed for Pain. 1,000 mg Refills: 0 acyclovir 5 % Oint Commonly known as: ZOVIRAX Apply 1 each topically every 3 hours. 1 each Refills: 0 amitriptyline 25 mg Tab Commonly known as: Elavil Take 25 mg by mouth nightly. 25 mg Refills: 0 aspirin 81 mg Chew Take 81 mg by mouth daily. 81 mg Quantity: 30 tablet Refills: 3 atorvastatin 10 mg Tab Commonly known as: Lipitor Take 10 mg by mouth daily. 10 mg Refills: 0 carvedilol 3.125 mg Tab Commonly known as: Coreg TAKE ONE TABLET BY MOUTH TWICE A DAY Refills: 3 diclofenac 1 % Gel Commonly known as: VOLTAREN Apply topically 4 times daily as needed. Refills: 0 gabapentin 600 mg Tab Commonly known as: NEURONTIN TAKE ONE TABLET BY MOUTH THREE TIMES A DAY Refills: 1 HYDROcodone-acetaminophen 5-325 mg Tab Commonly known as: [place] Take 1 tablet by mouth 2 times daily. 1 tablet Refills: 0 Incruse Ellipta 62.5 mcg/actuation Dsdv INHALE ONE PUFF BY MOUTH EVERY DAY Generic drug: umeclidinium Refills: 5 lactobacillus rhamnosus (GG) 10 billion cell Cap Commonly known as: CULTURELLE Take 1 capsule by mouth daily. 1 capsule Refills: 0 levalbuterol 45 mcg/actuation Hfaa Commonly known as: XOPENEX HFA INHALE TWO PUFFS BY MOUTH EVERY 4 TO 6 HOURS NEEDED Refills: 3 lisinopril 5 mg Tab Commonly known as: Prinivil;Zestril TAKE ONE TABLET BY MOUTH DAILY Refills: 3 loratadine 10 mg Tab Commonly known as: Claritin TAKE ONE TABLET BY MOUTH EVERY DAY NEEDED Refills: 3 metFORMIN 500 mg Tab Commonly known as: Glucophage Take 500 mg by mouth 2 times daily (with meals). 500 mg Refills: 0 nitroGLYcerin 0.4 mg Subl Commonly known as: Nitrostat Place 0.4 mg under the tongue every 5 minutes as needed for Chest pain. 0.4 mg Refills: 0 Questran 4 gram Powd Take by mouth 3 times daily (with meals). Generic drug: cholestyramine Refills: 0 spironolactone 25 mg Tab Commonly known as: Aldactone TAKE ONE TABLET BY MOUTH EVERY DAY Refills: 3 TRULICITY SUBQ Inject subcutaneously once a week. Refills: 0 valACYclovir 1 gram Tab Commonly known as: VALTREX TAKE ONE TABLET BY MOUTH EVERY DAY NEEDED Refills: 1 Updated Allergies/ADRs: Allergies Allergen Reactions ??? Ketamine Other (See Comments) Hallucinations ??? Anafranil [Clomipramine] Other (See Comments) give me the flu ??? Augmentin [Amoxicillin-Pot Clavulanate] Hives and Itching ??? Erythromycin Hives and Itching ??? Macrobid [Nitrofurantoin Monohyd/M-Cryst] Other (See Comments) Causes depression ??? Sulfa (Sulfonamide Antibiotics) Hives Scheduled Appointments: Future Appointments Date Time Provider Department Center 08/13/2019 12:30 PM Hailey Mcclendon MD [facility]STR[facility] 09/25/2019 10:10 AM [facility] L [facility] 3L [facility] 09/25/2019 11:20 AM Anne Gonzales APRN [facility] SUR[facility] 12/30/2019 10:00 AM [facility] US ROOM 5 [facility] Rad 12/30/2019 11:00 AM Crow Galvin Jr., MD [facility] URO [facility] Outpatient Services/Studies: PTH Standing Status: Future Standing Exp. Date: 03/23/20 Calcium Standing Status: Future Standing Exp. Date: 03/23/20 Instructions Given to Patient at Discharge:. An After Visit Summary was printed and given to the patient. Patient Instructions PARATHYROIDECTOMY PATIENT DISCHARGE INSTRUCTIONS What to Expect Following Surgery: Swelling and/or bruising under and around the incision is normal. It is usually greatest on the second or third day following surgery. You may also feel the sensation of swelling or firmness that can last for a month or more Your scar will be most visible for 1-2 months following your operation and will gradually fade over the next 6-8 months. As it heals, a scar often looks more pink or red than the skin around it. You may feel a ???healing ridge?? directly under the incision. This is completely normal and is theresult of swelling, healing, and scar formation. Usually, this will go away when healing is completein 3-6 months. The skin just above and below your incision will feel numb. This will improve over several months but some patients may have long-term decrease in sensation over these areas. You may notice minor difficulty in swallowing which will improve over time. Your voice may be hoarse or weak at first--this is normal and does not mean there was damage done tothe nerves that make the vocal cords move. Your voice will usually go back to normal after several days to a few weeks. Incision Care: Neck incisions heal rapidly--usually within a week or two. The incision can get wet in the shower 24 hours after surgery. However, do not submerge the incisionunderwater (i.e. bath tub, swimming pool, hot tub, etc.) for at least 2 weeks after your operation. Pat the incision dry immediately following your shower. Do not scrub the area vigorously for the next2 weeks. You have a skin glue closure, and you may notice tiny pieces of yellow/white/robertson material on your washcloth or there may be a thin clear or purplish/robertson crust around the edges of the incision. This is normal. The glue will start to come off about a week after surgery. Do not pull off the skin glue in order to allow time for the incision to heal completely. If there is still some glue on your skin 2weeks after surgery, you may gently wash it away. Do not use any ointments/salves/Vitamin E on the incision for 2 weeks as these may impair early wound healing. After 2 weeks (and after the skin glue is gone), you may apply vitamin E oil or scar creams to the incision. Gentle massage may help soften your scar tissue. Incisions are sensitive to sunlight. For at least 1 year after surgery you should use sunscreen whenoutdoors for long periods of time to prevent permanent darkening of the scar. This includes tanning booths. Pain Management: You may apply ice or cold packs to the incision for 15-20 minutes several times a day for the first 2-3 days following surgery to help with discomfort. You may feel some stiffness/soreness in your shoulders, back, and neck. This may take a few days or weeks to go away completely. You may use moist warm heat, a heating pad, or massage to these areas for 15-20 minutes several times a day. Do not be afraid to move your neck - gently flexing and stretching your neck muscles and light massage will help prevent stiffness NSAIDs (non-steroidal anti-inflammatory drugs) such as ibuprofen (Motrin, Advil) and naproxen (Naprosyn, Aleve) or acetaminophen (Tylenol) are most helpful for the pain experienced after surgery. Generally, these are even more effective than the stronger pain medications (narcotics or opioids) after parathyroid surgery. Take NSAIDS or Tylenol every 6 hours [id number] for the first 3-5 days following surgery to help minimize pain. It is unusual to require opioid pain medications after parathyroid surgery. If you were prescribed oxycodone, use only for severe pain, and never take with alcohol. Opioid medications typically cause constipation, so we suggest using a stool softener in addition (metamucil, colace...etc.). Diet & Activity: No restrictions in your diet are necessary. Activity as tolerated by your comfort level. You may return to work as soon as you would like. However, if your job requires heavy lifting or strenuous physical activity, your surgeon may ask you to wait to return to work for two weeks. NO DRIVING for at least 8 hours following any dose of an opioid pain medication if one was prescribed for you. Pathology Report: All specimens removed at surgery are analyzed by a pathologist. This report usually takes approximately 5-7 business days to be ready. Dr. Luu will call you with this report as soon as it is available. Follow-up Appointment: Will be scheduled with Dr. Luu in 6 weeks with a lab appointment to check your calcium Future Appointments Date Time Provider Department Center 08/13/2019 12:30 PM Hailey Mcclendon MD [facility] 09/25/2019 10:10 AM LAB, THREE L Lab 3L [facility] 09/25/2019 11:20 AM Anne Gonzales APRN [facility] SUR[facility] 12/30/2019 10:00 AM [facility] ROOM 5 [facility] 12/30/2019 11:00 AM Crow Galvin Jr., MD [facility] Please call [phone] to confirm the date and time of your appointment if you do not hear from usin the next 2 weeks Call Doctor for: Call if you have trouble talking or breathing (call 911 if this is severe) Call if you develop numbness or tingling around your mouth/lips or on the tips of your fingers or your hands, as this may mean your calcium is low. This may also be related to pain medication, where the breathing tube was positioned against your lips, the positioning of your arms and hands in the operating room, or how you were positioned when sleeping. If the sensation does not go away within a halfhour, or if it worsens prior to that, call us immediately so we can discuss increasing your calcium if we think you need it. Call if your incision becomes red or begins to drain fluid. Call if you have fevers greater than 101 degrees F Call if you have persistent nausea or vomiting (this may be related to opioid pain medications). Call if you begin feeling worse, rather than better, several days after surgery. Information about Calcium Supplementation WHAT IS THE EFFECT OF SURGERY ON MY CALCIUM LEVELS? The parathyroid glands are responsible for controlling the body???s calcium levels, and you probably needed parathyroid surgery because your calcium level was too high. However, after we remove theabnormal gland(s), the remaining parathyroids frequently do not work perfectly right away. This can result in a decrease in blood calcium levels. This is usually temporary and the remaining parathyroidglands almost always make a full recovery. ??? WHAT ARE THE SYMPTOMS OF LOW CALCIUM? If the calcium level in the blood stream decreases after surgery, you may experience symptoms ofnumbness, tingling, or cramps in the fingers, toes, legs, or around the mouth. ??? WHAT ARE CALCIUM SUPPLEMENTS? Each over the counter calcium supplement tablet is approximately 500-600 mg. ??? There are several different types of calcium sold over the counter. Some of the more common brands you will see include: Tums, Viactiv, Citracal, Caltrate. ??? The two main forms of calcium in supplements are carbonate and citrate. Calcium carbonate (Tums,Viactiv) is absorbed most efficiently when taken with food, whereas calcium citrate (Citracal) is absorbed equally well when taken with or without food. ??? HOW MUCH CALCIUM SHOULD I TAKE AFTER SURGERY? The exact dose of calcium that is right for you after surgery depends on several factors including the type and extent of surgery. ??? Most patients will temporarily require some extra calcium as the parathyroid glands recover. ??? You probably already purchased calcium supplements after reviewing your preoperative handout. ??? A good guideline is to start with 600-1200 mg (1-2 over the counter supplements) twice a day. Ifyou notice symptoms of numbness/tingling, you may need to take it more frequently (up to 3-4 times per day). If you have no symptoms, the dose can be gradually decreased and the extra calcium stopped al together within a few days of surgery. ??? WHAT ABOUT VITAMIN D? Vitamin D can be very helpful with calcium levels, as adequate vitamin D stores in the body helpyour body absorb calcium. ??? If you were on Vitamin D prior to surgery, this can be resumed post-operatively. ??? Additional Vitamin D may be included in your calcium supplement, this is fine as well. ??? If you are not on Vitamin D and would like to start after surgery, an over the counter supplement of 400-800 IU is the usual recommended dosage, however, if you are on other medications or have other health issues, you will want to discuss this with your PCP. ??? If your surgeon is concerned about your calcium levels, (s)he may prescribe a different form of vitamin D called Rocaltrol (Calcitriol). This should be taken as instructed. Note that this is not a replacement for calcium, it should be taken in addition to the recommended calcium supplements to help with absorption. COMMONLY ASKED QUESTIONS: ??? Are there side effects to calcium supplements? The most common side effect is constipation and stomach upset. If you are taking high doses of calcium after surgery, be sure to include a stool softener or laxative as needed. Minimize narcotics, as these can also cause constipation. Finally, decrease your calcium supplements if you note no symptoms of low calcium as noted above. Do I need a blood test after surgery to check my calcium levels? Your calcium level will be checkedat your routine follow up visit to make sure it has returned to normal. You will most likely be off the postoperative supplements by then. Our bodies will signal us that the calcium level is low with the symptoms noted above. If you do not have these symptoms, then most likely your calcium level is just fine. Should I take a long-term calcium supplement? Routine calcium supplements can be good for general bone health, especially if you have osteoporosis as a result of your hyperparathyroidism. We recommendthat you discuss long-term supplementation with your PCP. Phone number for questions: [phone] before 5 PM on weekdays [phone] after 5 PM and on weekends/holidays. Ask for the general surgery resident environmental remediation specialist. General Instructions None Follow-up Recommendations for Providers: Routine post-operative care CC: Albert Zuleta MD Signed: Kiko Summers MD 08/13/2019 documented in this encounter Discharge Instructions Patient InstructionsKiko Summers MD - 08/12/2019 4:26 PM EST PARATHYROIDECTOMY PATIENT DISCHARGE INSTRUCTIONS What to Expect Following Surgery: Swelling and/or bruising under and around the incision is normal. It is usually greatest on the second or third day following surgery. You may also feel the sensation of swelling or firmness that can last for a month or more Your scar will be most visible for 1-2 months following your operation and will gradually fade over the next 6-8 months. As it heals, a scar often looks more pink or red than the skin around it. You may feel a ???healing ridge?? directly under the incision. This is completely normal and is theresult of swelling, healing, and scar formation. Usually, this will go away when healing is completein 3-6 months. The skin just above and below your incision will feel numb. This will improve over several months but some patients may have long-term decrease in sensation over these areas. You may notice minor difficulty in swallowing which will improve over time. Your voice may be hoarse or weak at first--this is normal and does not mean there was damage done tothe nerves that make the vocal cords move. Your voice will usually go back to normal after several days to a few weeks. Incision Care: Neck incisions heal rapidly--usually within a week or two. The incision can get wet in the shower 24 hours after surgery. However, do not submerge the incisionunderwater (i.e. bath tub, swimming pool, hot tub, etc.) for at least 2 weeks after your operation. Pat the incision dry immediately following your shower. Do not scrub the area vigorously for the next2 weeks. You have a skin glue closure, and you may notice tiny pieces of yellow/white/robertson material on your washcloth or there may be a thin clear or purplish/robertson crust around the edges of the incision. This is normal. The glue will start to come off about a week after surgery. Do not pull off the skin glue in order to allow time for the incision to heal completely. If there is still some glue on your skin 2weeks after surgery, you may gently wash it away. Do not use any ointments/salves/Vitamin E on the incision for 2 weeks as these may impair early wound healing. After 2 weeks (and after the skin glue is gone), you may apply vitamin E oil or scar creams to the incision. Gentle massage may help soften your scar tissue. Incisions are sensitive to sunlight. For at least 1 year after surgery you should use sunscreen whenoutdoors for long periods of time to prevent permanent darkening of the scar. This includes tanning booths. Pain Management: You may apply ice or cold packs to the incision for 15-20 minutes several times a day for the first 2-3 days following surgery to help with discomfort. You may feel some stiffness/soreness in your shoulders, back, and neck. This may take a few days or weeks to go away completely. You may use moist warm heat, a heating pad, or massage to these areas for 15-20 minutes several times a day. Do not be afraid to move your neck - gently flexing and stretching your neck muscles and light massage will help prevent stiffness NSAIDs (non-steroidal anti-inflammatory drugs) such as ibuprofen (Motrin, Advil) and naproxen (Naprosyn, Aleve) or acetaminophen (Tylenol) are most helpful for the pain experienced after surgery. Generally, these are even more effective than the stronger pain medications (narcotics or opioids) after parathyroid surgery. Take NSAIDS or Tylenol every 6 hours [id number] for the first 3-5 days following surgery to help minimize pain. It is unusual to require opioid pain medications after parathyroid surgery. If you were prescribed oxycodone, use only for severe pain, and never take with alcohol. Opioid medications typically cause constipation, so we suggest using a stool softener in addition (metamucil, colace...etc.). Diet & Activity: No restrictions in your diet are necessary. Activity as tolerated by your comfort level. You may return to work as soon as you would like. However, if your job requires heavy lifting or strenuous physical activity, your surgeon may ask you to wait to return to work for two weeks. NO DRIVING for at least 8 hours following any dose of an opioid pain medication if one was prescribed for you. Pathology Report: All specimens removed at surgery are analyzed by a pathologist. This report usually takes approximately 5-7 business days to be ready. Dr. Luu will call you with this report as soon as it is available. Follow-up Appointment: Will be scheduled with Dr. Luu in 6 weeks with a lab appointment to check your calcium Future Appointments Date Time Provider Department Center 08/13/2019 12:30 PM [facility] [facility] 09/25/2019 10:10 AM MIRIAM, THREE L Lab 3L [facility] ST[facility] 09/25/2019 11:20 AM Anne Gonzales APRN [facility] 12/30/2019 10:00 AM [facility] ROOM 5 [facility] Rad 12/30/2019 11:00 AM Crow Galvin Jr., MD [facility] Please call [phone] to confirm the date and time of your appointment if you do not hear from usin the next 2 weeks Call Doctor for: Call if you have trouble talking or breathing (call 911 if this is severe) Call if you develop numbness or tingling around your mouth/lips or on the tips of your fingers or your hands, as this may mean your calcium is low. This may also be related to pain medication, where the breathing tube was positioned against your lips, the positioning of your arms and hands in the operating room, or how you were positioned when sleeping. If the sensation does not go away within a halfhour, or if it worsens prior to that, call us immediately so we can discuss increasing your calcium if we think you need it. Call if your incision becomes red or begins to drain fluid. Call if you have fevers greater than 101 degrees F Call if you have persistent nausea or vomiting (this may be related to opioid pain medications). Call if you begin feeling worse, rather than better, several days after surgery. Information about Calcium Supplementation WHAT IS THE EFFECT OF SURGERY ON MY CALCIUM LEVELS? The parathyroid glands are responsible for controlling the body???s calcium levels, and you probably needed parathyroid surgery because your calcium level was too high. However, after we remove theabnormal gland(s), the remaining parathyroids frequently do not work perfectly right away. This can result in a decrease in blood calcium levels. This is usually temporary and the remaining parathyroidglands almost always make a full recovery. ??? WHAT ARE THE SYMPTOMS OF LOW CALCIUM? If the calcium level in the blood stream decreases after surgery, you may experience symptoms ofnumbness, tingling, or cramps in the fingers, toes, legs, or around the mouth. ??? WHAT ARE CALCIUM SUPPLEMENTS? Each over the counter calcium supplement tablet is approximately 500-600 mg. ??? There are several different types of calcium sold over the counter. Some of the more common brands you will see include: Tums, Viactiv, Citracal, Caltrate. ??? The two main forms of calcium in supplements are carbonate and citrate. Calcium carbonate (Tums,Viactiv) is absorbed most efficiently when taken with food, whereas calcium citrate (Citracal) is absorbed equally well when taken with or without food. ??? HOW MUCH CALCIUM SHOULD I TAKE AFTER SURGERY? The exact dose of calcium that is right for you after surgery depends on several factors including the type and extent of surgery. ??? Most patients will temporarily require some extra calcium as the parathyroid glands recover. ??? You probably already purchased calcium supplements after reviewing your preoperative handout. ??? A good guideline is to start with 600-1200 mg (1-2 over the counter supplements) twice a day. Ifyou notice symptoms of numbness/tingling, you may need to take it more frequently (up to 3-4 times per day). If you have no symptoms, the dose can be gradually decreased and the extra calcium stopped al together within a few days of surgery. ??? WHAT ABOUT VITAMIN D? Vitamin D can be very helpful with calcium levels, as adequate vitamin D stores in the body helpyour body absorb calcium. ??? If you were on Vitamin D prior to surgery, this can be resumed post-operatively. ??? Additional Vitamin D may be included in your calcium supplement, this is fine as well. ??? If you are not on Vitamin D and would like to start after surgery, an over the counter supplement of 400-800 IU is the usual recommended dosage, however, if you are on other medications or have other health issues, you will want to discuss this with your PCP. ??? If your surgeon is concerned about your calcium levels, (s)he may prescribe a different form of vitamin D called Rocaltrol (Calcitriol). This should be taken as instructed. Note that this is not a replacement for calcium, it should be taken in addition to the recommended calcium supplements to help with absorption. COMMONLY ASKED QUESTIONS: ??? Are there side effects to calcium supplements? The most common side effect is constipation and stomach upset. If you are taking high doses of calcium after surgery, be sure to include a stool softener or laxative as needed. Minimize narcotics, as these can also cause constipation. Finally, decrease your calcium supplements if you note no symptoms of low calcium as noted above. Do I need a blood test after surgery to check my calcium levels? Your calcium level will be checkedat your routine follow up visit to make sure it has returned to normal. You will most likely be off the postoperative supplements by then. Our bodies will signal us that the calcium level is low with the symptoms noted above. If you do not have these symptoms, then most likely your calcium level is just fine. Should I take a long-term calcium supplement? Routine calcium supplements can be good for general bone health, especially if you have osteoporosis as a result of your hyperparathyroidism. We recommendthat you discuss long-term supplementation with your PCP. Phone number for questions: [phone] before 5 PM on weekdays [phone] after 5 PM and on weekends/holidays. Ask for the general surgery resident environmental remediation specialist. AttachmentsThe following attachments cannot be sent through Care Everywhere. Parathyroidectomy: Post-op (Bangladeshi)documented in this encounter Medications at Time of [...] 03/09/2018 (PRINIVIL;ZESTRIL) 5 mg MOUTH DAILY Tablet metFORMIN (GLUCOPHAGE) Take 1,000 mg by [...] documented as of this encounter Progress Notes Agata Stevens RN - 08/13/2019 11:51 AM EST Patient discharged from unit to home by self. Neck incision derma bonded, open to air, minor incisional swelling noted (encouraged ice pack & rest with head elevated). IV discontinued, tip intact, dressing applied, pressure held. Discharge care instructions provided and explained. Patient verbalized understanding. Patient left unit with all belongings in wheelchair accompanied by family and declined staff assistance. Sarah Arambula RN - 08/12/2019 8:22 PM EST 2015 Report to Irina Oscar. 2019 Paged Surgery safety intern to address code status. Nuria Washington RN - 08/12/2019 6:50 PM EST 165 - Pt arrives to PACU via bed with service and anesthesia. Monitors on with alarms, awake and tearful. Incision CDI. Ice pack to anterior neck, report received and care assumed. 1755 - States has to void, refusing bed wetzel, awake and alert, feels like she could get up. 1800 - OOB to BR with stand by assist. Rito well, voided without difficulty. 1845 - Pt notified of bed availability and states I would before going to [address] [place] zinc furnace charger notified. Paulino Sauer MD - 08/12/2019 6:03 PM EST Post-Operative Check Blossom Samayoa is a 58 y.o. female s/p Procedure(s): PARATHYROIDECTOMY OR EXPLORATION OF PARATHYROID(S) (WRVU 15.6) FACIAL NERVE MONITORING, SETUP LARYNGEAL (WRVU 1.57) S: Ms. Samayoa is POD0 from parathyroidectomy, doing very well post-operatively. She has minimal pain at the incision site. O: Temp: [36.7 ??C (98.1 ??F)] Heart Rate: [65-86] Resp: [14-18] BP: (100-137)/(65-83) SpO2: [94 %-98 %] Heart Rate from SpO2: [78 bpm-90 bpm] No intake/output data recorded. I/O this shift: In: 608 [I.V.:500; IV Piggyback:108] Out: 3 [Blood:3] Recent Results (from the past 24 hour(s)) POCT Glucose Result Value Ref Range POC Glucose 137 65 - 199 mg/dL Intraoperative PTH ([facility]) Result Value Ref Range Intraoper PTH 71 9 - 77 pg/mL Intraoperative PTH ([facility]) Result Value Ref Range Intraoper PTH 46 9 - 77 pg/mL Intraoperative PTH ([facility]) Result Value Ref Range Intraoper PTH 48 9 - 77 pg/mL Surgical Pathology Report Result Value Ref Range Surgical Pathology Report [id number] Location: OR; OR22; A The signing pathologist has (i) examined the relevant preparation(s) for the specimen(s) and (ii) rendered or confirmed the diagnosis(es). . Frozen Section FROZEN SECTION DIAGNOSIS A - Questioning left lower parathyroid for frozen section - Parathyroid gland. 08/12/19 15:44 Electronically signed by: Gina Mckeon DO Verified: 08/12/2019 Pathologist Performed at: -[facility] Dept. of Pathology, [place], [place] This intraoperative consultation should be interpreted as a preliminary diagnosis pending review of the entire specimen and special studies, if any. Intraoperative PTH ([facility]) Result Value Ref Range Intraoper PTH 9 9 - 77 pg/mL Intraoperative PTH ([facility]) Result Value Ref Range Intraoper PTH 7 (L) 9 - 77 pg/mL POCT Glucose Result Value Ref Range POC Glucose 129 65 - 199 mg/dL Physical Exam: General: No acute distress, cooperative, resting comfortably Neuro: Moving all extremities spontaneously HEENT: Atraumatic, normocephalic. Neck: Incision c/d/i with mild ecchymosis surround incision. No drainage or bleeding present. Lungs: Breathing comfortably on RA. MSK: No obvious deformities L/T/D: None AP Blossom Samayoa is a 58 y.o. female s/p parathyroidectomy, currently in stable condition and recovering well. - Tylenol and Ibuprofen for pain control - Carb control diet tonight - Ice pack PRN to neck incision Paulino Sauer MD PGY-1 08/12/2019 documented in this encounter H&P Notes Kiko Summers MD - 08/12/2019 1:47 PM EST Pre-operative Interval H&P Planned Procedure: parathyroidectomy, likely bilateral 4-gland exploration with possible subtotal parathyroidectomy A 30 day history and physical was reviewed and updated. Briefly, Blossom Samayoa is a 58 y.o. female with a history of nephrolithiasis and primary hyperparathyroidism. She reports no interval changein her overall health since last seeing Dr. Luu in clinic - please see clinic note for further details. VITALS: BP 100/83 (BP Location (NBP): Left arm) Pulse 65 Temp 36.7 ??C (98.1 ??F) (Temporal) Resp 18 Wt 131.5 kg (290 lb) LMP (LMP Unknown) SpO2 98% BMI 46.81 kg/m?? EXAM: Gen: NAD Neck: soft, no masses/lymphadenopathy CV: regular rate Pulm: unlabored respirations on RA Consent signed in clinic. Plan for procedure and risks/benefits reviewed with patient. All questionsanswered. Plan for admission post-op for observation overnight. Kiko Summers MD [id number] 08/12/2019 1:45 PM documented in this encounter Miscellaneous Notes Plan of Care - Celestina Tapia RN - 08/13/2019 3:40 AM EST Problem: Patient Care Overview Goal: Plan of Care Review Outcome: Ongoing (Interventions Implemented as Appropriate) 08/13/19 0325 Coping/Psychosocial Plan Of Care Reviewed With patient Plan of Care Review Progress progress toward functional goals as expected OUTCOME EVALUATION NOTE: OUTCOME SUMMARY: VSS, no SOB, LIM, CP. Patient not on tele. Lungs clear, patient is on RA, no new numbness/tingling, no numbness around mouth, fingers. Radial, dorsalis pulses normal Incision site: transverse anterior neck dermabond, no drainage, well approximated, Skin otherwise intact. Patient reports 11/27/09 pain (some chronic) no N/V. Treated with scheduled and PRN medications (see MAR) FSBG: AC/HS Bowel sounds in active in all quadrants Patient tolerating PO well Voiding WNL To urinate patient ambulates to bathroom, PLAN MOVING FORWARD: Plans for D/C to home in AM Promote patient ambulation around unit & OOB to chair Pain / nausea management Maintain patient safety Monitor I &O's Monitor for s/s of infection INDIVIDUALIZED FALL PREVENTION INTERVENTIONS: fall risk precautions maintained. Patient is cooperative. Patient able to reliably summon for assistance Bed in low position. Bed alarms with 3 side rails raised at all times patient is in bed. Tolieting offered. Bathing/hygeine/dressing assistance provided while encouraging independence. Environment clear of obstacles/tripping hazard. Lighting provided/adjusted. Patient instructed in use of call leigh. call leigh within reach at all times. Patient will remain free from falls this shift. Patient-specific fall risk factors per assessment: [current deficits]: Assistance [level of assistance required for transfers and ambulation]: At baseline patient uses cane. Currently to ambulate patient SBA with cane (patient has own cane). Supervision [direct monitoring required during toileting and ADLs]: At baseline patient is independent with ADL's, when patient is out of bed, currently patient is within reach /hands on assist with ADL's, Surveillance [continuous indirect monitoring]: Purposeful hourly rounding done, pulse oximetry, roomnear nurses station, call leigh within reach, Patient-specific fall prevention interventions for sensory deficits provided, if applicable: N/A Goal: Fall Prevention-Safe Patient Handling Outcome: Ongoing (Interventions Implemented as Appropriate) 08/12/19 2356 Francois Fall Risk History of Falling 0 Secondary Diagnosis 15 Ambulatory Aids 0 Intravenous Therapy/Heparin/Saline Lock 20 Gait/Transferring 0 Mental Status 0 Score 35 OTHER Francois Fall Risk Med Restraint Interventions Safety Promotion/Fall Prevention activity supervised;fall prevention program maintained;nonskid shoes/slippers when out of bed;safety round/check completed;toileting scheduled Positioning Body Position supine, head elevated Activity Activity Type activity adjusted per tolerance;ambulated in murdock Activity Assistance Provided assistance, 1 person Assistive Device Utilized cane Goal: Infection Control Outcome: Ongoing (Interventions Implemented as Appropriate) 08/12/19 2356 Safety Interventions Isolation Precautions standard precautions maintained Infection Prevention environmental surveillance performed;equipment surfaces disinfected;personal protective equipment utilized;rest/sleep promoted;single patient room provided;visitors restricted/screened Coping Strategies Supportive Measures active listening utilized;counseling provided;decision- making supported;goal setting facilitated;positive reinforcement provided;problem solving facilitated;relaxation techniques promoted;self-care encouraged;self-reflection promoted;self-responsibility promoted;verbalization of feelings encouraged Goal: Discharge Needs Assessment Outcome: Ongoing (Interventions Implemented as Appropriate) 08/13/19 0325 Discharge Needs Assessment Concerns To Be Addressed no discharge needs identified Op Note - Duyen Luu MD - 08/12/2019 3:49 PM EST [facility] Operative Note Patient Name: Blossom Samayoa : [id number] MR#: [id number] Case Date: 08/12/2019 Surgeon: Surgeon(s) and Role: * Duyen Luu MD - Primary * Kiko Summers MD - Resident Preoperative diagnosis: HYPERPARATHYROIDISM Postoperative diagnosis: HYPERPARATHYROIDISM Procedure(s) (LRB): PARATHYROIDECTOMY OR EXPLORATION OF PARATHYROID(S) (WRVU 15.6) (N/A) FACIAL NERVE MONITORING, SETUP LARYNGEAL (WRVU 1.57) (N/A) Anesthesia: General Estimated Blood Loss: 3cc Specimens removed during surgery: Order Name Source Comment Collection Info Order Time SPECIMEN TO PATHOLOGY Please call OR 22 with results (ext [id number]). Thank you.Hy Hyperparathyroidism Questioning left lower parathyroid excision YES, Please perform frozen section No 08/12/2019 3:14 PM Number of tissue samples (in container) 1 Time specimen removed from patient: 3:11 PM Biospecimen to store? No Drains: * No LDAs found * Surgical Closure: Primary Closure - skin incision is completely closed without any wires, dhruv, drains or other devices Disposition: awakened from anesthesia, extubated and taken to the recovery room in a stable condition, having suffered no apparent untoward event. Condition: doing well without problems (Please see the Surgical Encounter Summary for any Implant and Specimen details pertinent to this patient.) HPI/Surgical Indications: Ms. Samayoa is a 58-year-old woman with a history significant for nephrolithiasis and what appears to be a normal hormonal variant of primary hyperparathyroidism. ??Sestamibi scan and cervical ultrasound have been nonlocalizing (there is a finding in the left central neck--pictured above--that is not classic for a parathyroid). ??The labs obtained in December support the diagnosis of primary hyperparathyroidism, as hypercalcemia related to a granulomatous disease like sarcoidosis (which she does have a history of) would likely be associated with a high 1, 25-OH vitamin D level, which she does not have. ??Her nephrolithiasis is an indication for surgery. ??She will likely require a bilateral exploration with possible subtotal parathyroidectomy, and we have discussed this extensively. Procedure Description: The patient was taken to the operating room and placed on the operating tablein the supine position. Adequate general anesthesia was completed by anesthesiology with the [employer] recurrent laryngeal nerve monitoring system. A crease on the anterior neck was identified and marked, and this area was infiltrated with 10cc 0.25% marcaine with epinephrine. She was then prepped anddraped in the usual sterile fashion over the anterior neck. A timeout procedure was done, and all members of the OR team were in agreement. The procedure began by making a curvilinear incision along the lower anterior neck along the previously marked skin crease with a scalpel. Electrocautery was used to continue dissection through the subcutaneous tissue and through the platysma muscle. Subplatysmal flaps were created in cranial and caudal directions. The median raphe of the strap muscles was divided with electrocautery. We developed a plane between the left strap muscles down to the left internal jugular vein, and jersey a baseline PTH from the internal jugular vein. We repeated this identical process on the right side to obtain bilateral jugular baselines. IOPTH levels are noted in the below. We then dissected the strap muscles off the left thyroid lobe out to its lateral aspect. A middle thyroidal vein was ligated. We identified a left lower parathyroid gland in the relatively superficial central neck which was enlarged. We dissected it free onto its vascular pedicle. We jersey a pre-excision PTH from the internal jugular vein. We then removed the left lower parathyroid gland and ligated its vascular pedicle with a 3-0 silk suture. The gland was passed off the table as a frozen specimen and was confirmed to be parathyroid tissue.At 10 and 15 minutes, we jersey post-excision PTHs from the internal jugular vein. We then irrigated the operative field. A Valsalva to 30 millimeters of mercury was accomplished by Anesthesia. Hemostasis was assured. The recurrent laryngeal nerve signal was identified in the TE groove, and it was fully functional on the nerve monitor. We placed Surgicel in the paratracheal space, closed the strap muscles using running 3-0 Vicryl suture, the platysma with interrupted 3-0 Vicryl suture, and the skin with running 5-0 Prolene subcuticular suture. The decreasing values and kinetics of the IOPTH indicated a biochemical cure. We then placed Dermabond on the incision and removed the Prolene suture. IOPTH findings: R jugular Baseline: 46 pg/mL L jugular baseline 71 Pg/mL Preexcision 48 pg/mL 10-min post-excision 9 pg/mL 15-min post-excision pending pg/mL Infection Bundle used? N/A Attestation: Case Date: 08/12/2019 I was present and I participated during the entire procedure (does not need to include opening and closing). DUYEN LUU MD 08/12/2019 Brief Op Note - Duyen uLu MD - 08/12/2019 3:48 PM EST Brief Operative Note Patient Name: Blossom Samayoa : [id number] MR#: [id number] Case Date: 08/12/2019 Surgeon: Surgeon(s) and Role: * Duyen Luu MD - Primary * Kiko Summers MD - Resident Preoperative diagnosis: HYPERPARATHYROIDISM Postoperative diagnosis: HYPERPARATHYROIDISM Procedure(s) (LRB): PARATHYROIDECTOMY OR EXPLORATION OF PARATHYROID(S) (WRVU 15.6) (N/A) FACIAL NERVE MONITORING, SETUP LARYNGEAL (WRVU 1.57) (N/A) Anesthesia: General Findings: enlarged left lower parathyroid. Left RLN signal intact. IOPTH findings: R jugular Baseline: 46 pg/mL L jugular baseline 71 Pg/mL Preexcision 48 pg/mL 10-min post-excision 9 pg/mL 15-min post-excision 7 pg/mL Complications: none apparent Intake: Intraprocedure Crystalloid Total Anesthesia Output Blood Loss 3 mL lactated ringers infusion Volume (mL) 500 mL clindamycin (CLEOCIN) 1,200 mg in dextrose 5% 108 mL infusion Volume (mL) 108 mL Transfusion No data found in the last 1 encounters. Output: Estimated Blood Loss: 3 mL Urine Output:: (no urine output recorded) Other Output: (no other output recorded) Drains: none Specimens removed during surgery: Order Name Source Comment Collection Info Order Time SPECIMEN TO PATHOLOGY Please call OR 22 with results (ext [id number]). Thank you.Hy Hyperparathyroidism Questioning left lower parathyroid excision YES, Please perform frozen section No 08/12/2019 3:14 PM Number of tissue samples (in container) 1 Time specimen removed from patient: 3:11 PM Biospecimen to store? No Disposition: awakened from anesthesia, extubated and taken to the recovery room in a stable condition, having suffered no apparent untoward event. Condition: doing well without problems Attestation: Case Date: 08/12/2019 I was present and I participated during the entire procedure (does not need to include opening and closing). (Please see the Surgical Encounter Summary for any Implant and Specimen details pertinent to this patient.) documented in this encounter Plan of Treatment Upcoming Encounters Date Type Specialty Care Team Description 03/15/2022 Office Visit Neurology Ryann Barfield APRN [facility] [place], [place] [address] 03/23/2022 Appointment Radiology Hailey Mcclendon MD [facility] R[facility]ARD [place] 0375 03/23/2022 Laboratory Appointment Lab 03/23/2022 Office Visit Gastroenterology Hailey Mcclendon MD [facility] R[facility] [place] 0375 05/23/2022 Procedure visit Maxillofacial Surgery Corby Montes MD [facility] Dr Causey MD 0375 Scheduled Orders Name Type Priority Associated Diagnoses Order S chedule Calcium Lab Routine Hyperparathyroidism, primary Expected: 09/22/2019 (Approximate), Expires: 03/23/2020 documented as of this encounter Procedures Procedure Name Priority Date/Time Associated Diagnosis Comme nts POCT GLUCOSE Routine 08/13/2019 6:49 Results for AM EST this procedure are in the results section. POCT GLUCOSE Routine 08/12/2019 9:14 Results for PM EST this procedure are in the results section. POCT GLUCOSE Routine 08/12/2019 5:43 Results for PM EST this procedure are in the results section. HC INTRAOPERATIVE PTH STAT 08/12/2019 3:23 Res ults for PM EST this procedure are in the results section. HC INTRAOPERATIVE PTH STAT 08/12/2019 3:20 Res ults for PM EST this procedure are in the results section. SPECIMEN TO PATHOLOGY STAT 08/12/2019 3:14 Res ults for PM EST this procedure are in the results section. SURGICAL PATHOLOGY Routine 08/12/2019 3:11 Result s for REPORT PM EST this procedure are in the results section. HC INTRAOPERATIVE PTH STAT 08/12/2019 3:06 Res ults for PM EST this procedure are in the results section. HC INTRAOPERATIVE PTH STAT 08/12/2019 2:57 Res ults for PM EST this procedure are in the results section. HC INTRAOPERATIVE PTH STAT 08/12/2019 2:55 Res ults for PM EST this procedure are in the results section. FACIAL NERVE MONITORING, 08/12/2019 2:12 HYPERPARATHYR OIDISM SETUP LARYNGEAL (WRVU PM EST 1.57) PARATHYROIDECTOMY OR 08/12/2019 2:12 HYPERPARATHYROIDI SM EXPLORATION OF PM EST PARATHYROID(S) (WRVU 15.6) POCT GLUCOSE Routine 08/12/2019 1:07 Results for PM EST this procedure are in the results section. documented in this encounter Results POCT Glucose (08/13/2019 6:49 AM EST) athologist Signature POC Glucose 157 65 - 199 [facility] Comment: Supplemental ranges: <140 mg/dL before meals <180 mg/dL all other times of the day Specimen Anatomical Collection Method Collection Time Receive d Time (Source) Location / / Volume Laterality Blood specimen 08/13/2019 6:49 AM 020 6:49 (specimen) EST AM EST Duyen Luu MD POINT OF CARE TEST ORDERABLE S Performing Organization Address City/State/[place] [address] POCT Glucose (08/12/2019 9:14 PM EST) athologist Signature POC Glucose 134 65 - 199 [facility] Comment: Supplemental ranges: <140 mg/dL before meals <180 mg/dL all other times of the day Specimen Anatomical Collection Method Collection Time Receive d Time (Source) Location / / Volume Laterality Blood specimen 08/12/2019 9:14 PM 020 9:14 (specimen) EST PM EST Duyen Luu MD POINT OF CARE TEST ORDERABLE S Performing Organization Address City/State/[place] [address] POCT Glucose (08/12/2019 5:43 PM EST) athologist Signature POC Glucose 129 65 - 199 [place] mg/dL [facility] Comment: Supplemental ranges: <140 mg/dL before meals <180 mg/dL all other times of the day Specimen Anatomical Collection Method Collection Time Receive d Time (Source) Location / / Volume Laterality Blood specimen 08/12/2019 5:43 PM 020 5:43 (specimen) EST PM EST Duyen Luu MD POINT OF CARE TEST ORDERABLE S Performing Organization Address City/[facility]/[place]IP [place] [address] (ABNORMAL) Intraoperative PTH ([facility]) (08/12/2019 3:23 PM EST) athologist Signature Intraoper PTH 7 (L) 9 - 77 [place] pg/mL [facility] Comment: Called by: eligio, Read back by: glenny delong, Date/Time:08/12/19 15:56. A 50 % decrease in venous iPTH levels at 10 min post adenoma excision is expected if all the hypersecreting parat hyroid tissue has been removed (Lee GL et al. Surgery 1993:114; [id number]) Specimen Anatomical Collection Method Collection Time Receive d Time (Source) Location / / Volume Laterality Blood specimen 08/12/2019 3:23 PM 020 3:30 (specimen) EST PM EST Resulting Agency Comment Spec In Lab Duyen Luu MD CHEMISTRY ORDERABLES Performing Organization Address City/[facility]/ZIP [place] [address] Intraoperative PTH ([facility]) (08/12/2019 3:20 PM EST) P athologist Signature [facility]oper PTH 9 9 - 77 [facility] Comment: Called by: eligio, Read back by: glenny delong, Date/Time:08/12/19 15:51. A 50 % decrease in venous iPTH levels at 10 min post adenoma excision is expected if all the hypersecreting parat hyroid tissue has been removed (Lee GL et al. Surgery 1993:114; [id number]) Specimen Anatomical Collection Method Collection Time Receive d Time (Source) Location / / Volume Laterality Blood specimen 08/12/2019 3:20 PM 020 3:25 (specimen) EST PM EST Resulting Agency Comment Spec In Lab Duyen Luu MD CHEMISTRY ORDERABLES Performing Organization Address City/[facility]/ZIP Code Phon e Number [address] Specimen to Pathology (08/12/2019 3:14 PM EST) Specimen Anatomical Collection Method Collection Time Receive d Time (Source) Location / / Volume Laterality AP Specimen 08/12/2019 3:14 PM 0 3:14 EST PM EST Narrative [facility] - 08/12/2019 3:14 PM EST Specimen requisition ordered. ??Separate Pathology report to follow Duyen Luu MD PATHOLOGY/CYTOLOGY ORDERABLE S Performing Organization Address City/[facility]/ZIP [facility] Phon e Number [address] Surgical Pathology Report (08/12/2019 3:11 PM EST) Component Value Ref Test Analysis Performed At Patholo gist Range Method Time Signature Surgical [id number] ? Location: [facility]; [facility]; A [facility] Report The signing pathologist has (i) examined the relevant preparation(s) for the [facility] specimen(s) and (ii) rendered or confirmed the diagnosis(es) . HOSPITAL LABORATORY . ?Surgic al Pathology DIAGNOSIS A - Left lower parathyroid, for frozen section: - Parathyroid gland. Electronically signed by: ??Gina Mckeon DO Verified: ??08/15/2019 ?Pathologist Performed at: ??-[facility] Dept. of Pathology, [place], [place] CLINICAL INFORMATION Specimen Submitted: A - Questioning left lower parathyroid for frozen section Clinical History and Diagnosis: Hyperparathyroidism SPECIMEN PROCESSING A - Labeled/Fixative: Questi oning left lower parathyroid, fresh for frozen section. Quantity/Size: ??Two, 1.2 x 0.6 x 0.5 cm, 0.4 x 0.3 x 0.2 cm Tissue Description: Two frag ments of zapata-red rubbery tissue. The larger fragment is bisected. The cut surface is zapata and homogeneous. Sections/Processing: The specimen is totally submitted for fr ozen section in 1 cassette labeled A1. ??RMO ?Fro andi Section FROZEN SECTION DIAGNOSIS A - Questioning left lower parathyroid for frozen section - Parathyroid gland. 08/12/19 15:44 Electronically signed by: ??Gina Mckeon DO Verified: ??08/12/2019 ?Pathologist Performed at: ??-[facility] Dept. of Pathology, [place], [place] This intraoperative consultation should be interpreted as a preliminary diagnosis pending review of the entire specimen and sp ecial studies, if any. Specimen (Source) Anatomical Collection Method Collection Time Re ceived Time Location / / Volume Laterality 08/12/2019 3:11 PM EST Duyen Luu MD PATHOLOGY/CYTOLOGY ORDERABLE S Performing Organization Address City/State/ZIP [place] [address] Intraoperative PTH ([facility]) (08/12/2019 3:06 PM EST) P athologist Signature Intraoper PTH 48 9 - 77 [facility] Comment: Called by: eligio, Read back by: glenny delong, Date/Time:08/12/19 15:44. A 50 % decrease in venous iPTH levels at 10 min post adenoma excision is expected if all the hypersecreting parat hyroid tissue has been removed (Lee GL et al. Surgery 1993:114; [id number]) Specimen Anatomical Collection Method Collection Time Receive d Time (Source) Location / / Volume Laterality Blood specimen 08/12/2019 3:06 PM 020 3:16 (specimen) EST PM EST Resulting Agency Comment Spec In Lab Duyen Luu MD CHEMISTRY ORDERABLES Performing Organization Address [facility] Phon e Number [address] Intraoperative PTH ([facility]) (08/12/2019 2:57 PM EST) athologist Signature Intraoper PTH 46 9 - 77 [facility]mL [facility] Comment: right baseline Called by: radha, Read back by: glenny lema, Date/Time:08/12/19 15:31. A 50 % decrease in venous iPTH levels at 10 min post adenoma excision is expected if all the hypersecreting parat hyroid tissue has been removed (Lee GL et al. Surgery 1993:114; [id number]) Specimen Anatomical Collection Method Collection Time Receive d Time (Source) Location / / Volume Laterality Blood specimen 08/12/2019 2:57 PM 020 3:04 (specimen) EST PM EST Resulting Agency Comment Spec In Lab Duyen Luu MD CHEMISTRY ORDERABLES Performing Organization Address [facility] Phon e Number [address] Intraoperative PTH ([facility]) (08/12/2019 2:55 PM EST) athologist Signature Intraoper PTH 71 9 - 77 [facility] Comment: left baseline Called by: radha, Read back by: glenny nolasco, Date/Time:08/12/19 15:31 . A 50 % decrease in venous iPTH levels at 10 min post adenoma excision is expected if all the hypersecreting parat hyroid tissue has been removed (Lee GL et al. Surgery 1993:114; [id number]) Specimen Anatomical Collection Method Collection Time Receive d Time (Source) Location / / Volume Laterality Blood specimen 08/12/2019 2:55 PM 020 3:04 (specimen) EST PM EST Resulting Agency Comment Spec In Lab Duyen Luu MD CHEMISTRY ORDERABLES Performing Organization Address City/[facility]/ZIP Code Phon e Number [address] POCT Glucose (08/12/2019 1:07 PM EST) athologist Signature POC Glucose 137 65 - 199 [facility] mg/dL [facility] Comment: Supplemental ranges: <140 mg/dL before meals <180 mg/dL all other times of the day Specimen Anatomical Collection Method Collection Time Receive d Time (Source) Location / / Volume Laterality Blood specimen 08/12/2019 1:07 PM 020 1:07 (specimen) EST PM EST Duyen Luu MD POINT OF CARE TEST ORDERABLE S Performing Organization Address City/[facility]/ZIP [facility] [place] [address] documented in this encounter Visit Diagnoses Not on filedocumented in this encounter Admitting Diagnoses Diagnosis Hyperparathyroidism, primary Primary hyperparathyroidism documented in this encounter Administered Medications Inactive Administered Medications - up to 3 most recent administrations Medication Order MAR Action Action Date Dose Rate Site acetaminophen (Tylenol) tablet Given 08/13/2019 6:09 AM EST 1,00 0 mg 1,000 mg 1,000 mg, Oral, EVERY 6 HOURS, First dose on Sun08/12/19 at 1730, Until Discontinued, Maximum dose of acetaminophen is 4000 mg from all sources in 24 hours., Routine Given 08/12/2019 10:33 PM EST 1,000 mg Given 08/12/2019 5:49 PM EST 1,000 mg amitriptyline (Elavil) tablet 25 mg Given 08/12/2019 11:03 PM EST 25 mg 25 mg, Oral, NIGHTLY, First dose on Sun08/12/19 at 2200, Until Discontinued, Routine aspirin chewable tablet 81 mg Given 08/13/2019 8:22 AM EST 81 mg 81 mg, Oral, DAILY, First dose on Sun08/13/19 at 0900, Until Discontinued, Routine BUpivacaine-EPINEPHrine 0.25 Given 08/12/2019 2:37 PM 10 mLs 19- Surgical Site %-1:200,000 injection EST ONCE PRN, Starting on Sun08/12/19 at 1437, Until Sun08/13/19 at 1217, Intra-Operative (Intra-Procedure), Routine calcium citrate (Calcitrate) tablet 950 mg Given 08/13/2019 8:23 AM EST 950 mg 950 mg, Oral, 3 TIMES DAILY, First dose on Sun08/12/19 at 2130, Until Discontinued, Routine Given 08/12/2019 10:38 PM EST 950 mg carvedilol (Coreg) tablet 3.125 mg Given 08/13/2019 8:22 AM EST 3.125 mg 3.125 mg, Oral, 2 TIMES DAILY, First dose on Sun08/12/19 at 2130, Until Discontinued, Routine Given 08/12/2019 10:34 PM EST 3.125 mg cholecalciferol (Vitamin D3) (Vitamin D3) Given 2019 8:22 AM EST 800 Units tablet 800 Units 800 Units, Oral, 3 TIMES DAILY, First dose on Sun08/12/19 at 2130, Until Discontinued, 40 units is equivalent to 1 mcg of cholecalciferol., Routine Given 08/12/2019 10:33 PM EST 800 Units dextrose 10% infusion 250 mL, at 1,000 mL/hr, Intravenous, DEBBY RY 30 MIN PRN, Starting on Sun08/12/19 at 2102, Until Sun08/13/19 at 1217, For BG 50-70 mg/dL: Oral treatment preferred:?? If able to drink, give 120 mL Juice or R egular (not diet) soda OR If NPO, give 15 gram glucose 40% oral gel massaged into buccal mucosa OR if unconscious or uncooperative, give 25 gram (250 mL) Dex trose 10% IV over 15 minutes per protocol OR, if no IV access, 1 mg Glucagon IM. * * For BG less than 50 mg/dL: Oral treatment preferred:?? If able to drink, give 240 mL Juice or Regular (not diet) soda OR If NPO, give 30 gram glucose 40% oral gel m assaged in buccal mucosa OR if unconscious or uncooperative, give 25 gram (250 mL) Dextrose 10% I V over 15 minutes per protocol OR, if no IV access, 1 mg Glucagon IM. Rech saúl BG in 30 minutes. May repeat juice/soda, gel, dextrose or gluc agon once per episode. For persistent hypoglycemia, consider longer-acting treatment for the duration of the active insulin. gabapentin (Neurontin) capsule 600 mg Given 08/13/2019 8:23 AM EST 600 mg 600 mg, Oral, 3 TIMES DAILY, First dose on Sun08/12/19 at 2130, Until Discontinued, Routine Given 08/12/2019 10:34 PM EST 600 mg glucagon (human recombinant) injection S olR 1 mg 1 mg, Intramuscular, EVERY 30 MIN PRN, S tarting on Sun08/12/19 at 2102, Until Sun08/13/19 at 1217, Low blood sugar, For BG 50-70 mg/d L: Oral treatment preferred:?? If able to drink, give 120 mL Juice or Regular (not diet) soda OR If NPO, give 15 gram glucose 40% oral gel massaged into b uccal mucosa OR if unconscious or uncooperative, give 25 gr am (250 mL) Dextrose 10% IV over 15 minutes per protocol OR, if no IV access, 1 mg G lucagon IM. For BG less than 50 mg/dL: Oral treatment preferred:?? If able to drink, give 240 mL Juice or Regular (not diet) soda OR If NPO, give 30 gram gluco se 40% oral gel massaged in buccal mucosa OR if unconscious or uncooperative, give 25 gram (250 mL) Dextrose 10% IV over 15 minutes per protocol OR, if no IV access, 1 mg Glucago n IM. Recheck BG in 30 minutes. May repeat juice/soda, gel, dex trose or glucagon once per episode. For persistent hypoglycemia, consider longer -acting treatment for the duration of the active insulin., Routine glucose (GLUTOSE) 40% oral gel 15-30 g, Buccal, EVERY 30 MIN PRN, Starting on 07/24 at 2102, Until Sun08/13/19 at 1217, Low blood sugar, For BG 50-70 mg/d L: Oral treatment preferred:?? If able to drink, give 120 mL Juice or Regular (not diet) soda OR If NPO, give 15 gram glucose 40% oral gel massaged into b uccal mucosa OR if unconscious or uncooperative, give 25 gr am (250 mL) Dextrose 10% IV over 15 minutes per protocol OR, if no IV access, 1 mg G lucagon IM. For BG less than 50 mg/dL: Oral treatment preferred:?? If able to drink, give 240 mL Juice or Regular (not diet) soda OR If NPO, give 30 gram gluco se 40% oral gel massaged in buccal mucosa OR if unconscious or uncooperative, give 25 gram (250 mL) Dextrose 10% IV over 15 minutes per protocol OR, if no IV access, 1 mg Glucago n IM. Recheck BG in 30 minutes. May repeat juice/soda, gel, dex trose or glucagon once per episode. For persistent hypoglycemia, consider longer -acting treatment for the duration of the active insulin. 1 tube contains 15 grams of glucose (n et weight of tube = 37.5 grams., Routine ibuprofen (Advil;Motrin) tablet 600 mg Given 08/12/2019 5:48 PM EST 600 mg 600 mg, Oral, EVERY 6 HOURS PRN, Starting on Sun08/12/19 at 1714, Until Sun08/13/19 at 1217, Pain, Administer orally with milk or food to minimize GI irritation. [place] dose of 3200 mg from all sources in 24 hours, Routine insulin lispro (HumaLOG) VIAL injection 1-5 Units 1-5 Units, Subcutaneous, 3 TIMES DAILY B EFORE MEALS, First dose on Sun08/12/19 at 2130, Until Discontinued, CORRECTION B OLUS [1-4 Units] Sensitive Sliding Scale: Correction factor 40 (1 unit of insulin is expected to drop the glucose 40 mg/dL) BG 160 - 200 Give 1 unit BG 201 - 240 Give 2 units BG 241 - 280 Give 3 units BG greater than 280, give 4 units and reche ck BG in 2 hours. - If recheck BG is LESS than 280, give no insulin and resume kiran edule - If recheck BG is GREATER than 280, give 4 units and repeat BG in 2 hours (n o more than 3 times) & call for new insulin orders. DO NOT hold if NPO, unless speci fically told to do so. Per Blood Glucose Monitoring Policy, re-check a BG of > 240 in 2 hours., Routine lactated ringers infusion New Bag 08/12/2019 1:08 PM EST 1,000 mLs 100 mL/hr 1,000 mL, at 100 mL/hr, Intravenous, CONTINUOUS, Starting on Sun08/12/19 at 1315, Until Sun08/12/19 at 1919, Day of Surgery (Day of Procedure) lisinopril (Prinivil;Zestril) tablet 5 m g Given 08/13/2019 8:20 AM EST 5 mg 5 mg, Oral, DAILY, First dose on Sun08/13/19 at 0900, Until Discontinued, Routine metFORMIN (Glucophage) tablet 500 mg Given 08/13/2019 8:23 AM EST 500 mg 500 mg, Oral, 2 TIMES DAILY WITH MEALS, First dose on Sun08/12/19 at 2130, Until Discontinued, Routine Given 08/12/2019 11:03 PM EST 500 mg oxyCODONE (Roxicodone) tablet 5 mg Given 08/12/2019 11:56 PM EST 5 mg 5 mg, Oral, 2 TIMES DAILY PRN, Starting on Sun08/12/19 at 2334, Until Sun08/13/19 at 0548, Pain, Routine sodium chloride 0.9 % (flush) flush 5 mL Given 08/13/2019 8:24 AM EST 5 mLs 5 mL, Intravenous, 2 TIMES DAILY, First dose on Sun08/12/19 at 2130, Until Discontinued, Recovery (Recovery-Hospital Unit), Routine sodium chloride 0.9 % (flush) flush 5 mL Given 08/12/2019 9:30 PM EST 5 mLs 5 mL, Intravenous, EVERY 12 HOURS, First dose on Sun08/12/19 at 2130, Until Discontinued, Angio/IR (Day of Procedure), Routine sodium chloride 0.9 % (flush) flush 5-20 mL 5-20 mL, Intravenous, EVERY 1 MIN PRN, S tarting on Sun08/12/19 at 2102, Until Sun08/13/19 at 1217, flush, Flush pertains t o all indwelling lines. Flush per protocol found in the job aid using the link prov ided on this medication record., Angio/IR (Day of Procedure), Routine spironolactone (Aldactone) tablet 25 mg Given 08/13/2019 9:00 AM EST 25 mg 25 mg, Oral, DAILY, First dose on Sun08/13/19 at 0900, Until Discontinued, DO NOT SPLIT, CRUSH OR OPEN, Routine documented in this encounter Active and Recently Administered Medications Times are shown in EST. Scheduled Medication Order 08/11/2019 08/12/2019 08/13/2019 acetaminophen (Tylenol) tablet 1,000 mg 1749 (Given - Provider: Nuria Washington RN)2233 (Given - Provider: Celestina Tapia RN) 0609 (Given - Provider: Celestina Tapia RN)1130 (Due) 1,000 mg, Oral, EVERY 6 HOURS, First dos e on Sun08/12/19 at 1730, Until Discontinued, Maximum dose of acetaminophen is 4000 mg from all sources in 24 hours., Routine amitriptyline (Elavil) tablet 25 mg 230 (Given - Provider: Celestina Tapia RN - Comment: just arrived from pharmacy) 25 mg, Oral, NIGHTLY, First dose on Sun08/12/19 at 2200, Until Discontinued, Routine aspirin chewable tablet 81 mg 08 (Given - Provider: Agata Stevens RN) 81 mg, Oral, DAILY, First dose on Sun at 0900, Until Discontinued, Routine atorvastatin (Lipitor) tablet 10 mg 10 mg, Oral, DAILY, First dose on Sun at 0900, Until Discontinued, Routine calcium citrate (Calcitrate) tablet 950 mg(Linked Group 1) 2237 (Given - Provider: Celestina Tapia RN) 08 (Given - Provider: Agata bergman RN) 950 mg, Oral, 3 TIMES DAILY, First dose on Sun08/12/19 at 2130, Until Discontinued, Routine carvedilol (Coreg) tablet 3.125 mg 2233 (Given - Provider: Celestina Tapia RN) 0822 (Given - Provider: Agata bergman RN) 3.125 mg, Oral, 2 TIMES DAILY, First dos e on Sun08/12/19 at 2130, Until Discontinued, Routine cholecalciferol (Vitamin D3) (Vitamin D3) tablet 800 Units(L inked Group 1) 2233 (Given - Provider: Celestina Tapia RN) 0822 (Given - Provider: Agata Stevens RN) 800 Units, Oral, 3 TIMES DAILY, First do se on Sun08/12/19 at 2130, Until Discontinued, 40 units is equivalent to 1 mcg of cholecalciferol., Routine clindamycin (CLEOCIN) 1,200 mg in dextrose 5% 108 mL infusio n (COMPLETED) 1433 (New Bag - Provider: Paulino Garcia MD) 1,200 mg, Intravenous, EVERY 6 HOURS, 1 dose, First dose on Sun08/12/19 at 1330, Administer over 60 Minutes, Do not exceed 30 mg/minute., Intra-Operative (Intra- Procedure), Indication for (Active or Suspected): Prophylaxis gabapentin (Neurontin) capsule 600 mg 22 34 (Given - Provider: Celestina Tapia RN) 0823 (Given - Provider: Agata bergman RN) 600 mg, Oral, 3 TIMES DAILY, First dose on Sun08/12/19 at 2130, Until Discontinued, Routine insulin lispro (HumaLOG) VIAL injection 1-5 Units(Linked Bear up 2) 2129 (Not Given - Provider: Celestina Tapia RN - Reason: Order parameters not met) 0730 (Not Given - Provider: Agata Stevens RN - Reason: Order parameters not met)1130 (Due) 1-5 Units, Subcutaneous, 3 TIMES DAILY B EFORE MEALS, First dose on Sun08/12/19 at 2130, Until Discontinued, CORRECTION BOLUS [1-4 Units] Sensitive Sliding Scale: Correction factor 40 (1 unit of insu skylar is expected to drop the glucose 40 m g/dL) BG 160 - 200 Give 1 unit BG 201 - 240 Give 2 units BG 241 - 280 Give 3 units BG greater than 280, give 4 units and recheck BG in 2 hours. - If recheck BG is LESS than 280, give no insulin and resu me schedule - If recheck BG is GREATER than 280, give 4 units and repeat BG in 2 hours (no more than 3 times) & call for new insulin orders. DO NOT hold if FLORICULTURIST O, unless specifically told to do so. Pe r Blood Glucose Monitoring Policy, re- check a BG of > 240 in 2 hours., Routine lisinopril (Prinivil;Zestril) tablet 5 mg 08 (Given - Provider: Agata Stevens RN) 5 mg, Oral, DAILY, First dose on 07/24 at 0900, Until Discontinued, Routine metFORMIN (Glucophage) tablet 500 mg 230 3 (Given - Provider: Celestina Tapia RN - Comment: just arrived from pharmacy) 0823 (Given - Provider: Agata Stevens RN) 500 mg, Oral, 2 TIMES DAILY WITH MEALS, First dose on Sun08/12/19 at 2130, Until Discontinued, Routine sodium chloride 0.9 % (flush) flush 5 mL 2129 (Not Given - Provider: Celestina Tapia RN - Reason: Loss of access) 0824 (Given - Provider: Agata Stevens RN) 5 mL, Intravenous, 2 TIMES DAILY, First dose on Sun08/12/19 at 2130, Until Discontinued, Recovery (Recovery-Hospital Unit), Routine sodium chloride 0.9 % (flush) flush 5 mL 2129 (Given - Provider: Celestina Tapia RN) 0930 (Not Given - Provider: Agata Bhardwaj RN - Reason: Medication Discontinued) 5 mL, Intravenous, EVERY 12 HOURS, First dose on Sun08/12/19 at 2130, Until Discontinued, Angio/IR (Day of Procedure), Routine spironolactone (Aldactone) tablet 25 mg 899 (Given - Provider: Agata Stevens RN) 25 mg, Oral, DAILY, First dose on Sun at 0900, Until Discontinued, DO NOT SPLIT, CRUSH OR OPEN, Routine Continuous Medication Order 08/11/2019 08/12/2019 08/13/2019 lactated ringers infusion (CANCELED) 130 8 (New Bag - Provider: Sugey Waldrop RN)1539 (Canceled Entry - Provider: Paulino Garcia MD)1550 (Anesthesia Volume Adjustment - Provider: Paulino Garcia MD) 1,000 mL, at 100 mL/hr, Intravenous, CON TINUOUS, Starting 08/12/19 at 1315, Until 08/12/19 at 1919, Day of Surgery (Day of Procedure) PRN Medication Order 08/11/2019 08/12/2019 08/13/2019 albuterol (PROVENTIL) nebulizer solution 2.5 mg 2.5 mg, Nebulization, EVERY 4 HOURS PRN, Starting 08/12/19 at 2102, Until 08/13/19 at 1217, Wheezing, Routine BUpivacaine-EPINEPHrine 0.25 %-1:200,000 injection (CANCELED ) 1437 (Given - Provider: Kiko Summers MD - Comment: 10mL Bupivacaine 0.25% mixed with epi (1:200,000) injected subcutaneously to anterior neck.) ONCE PRN, Starting 08/12/19 at 1437, Until 08/13/19 at 1217, Intra- Operative (Intra-Procedure), Routine dextrose 10% infusion(Linked Group 3) 250 mL, at 1,000 mL/hr, Intravenous, DEBBY RY 30 MIN PRN, Starting 08/12/19 at 2102, Until Sun08/13/19 at 1217, For BG 50-70 mg/dL: Oral treatment preferred:?? If able to drink, give 120 mL Juice or Regular (not diet) soda OR If NPO, give 15 gram glucose 40% oral gel massaged into buccal mucosa OR if unconscious or uncooperative, give 25 gram (250 mL) Dextrose 10% IV over 15 minutes per protocol OR , if no IV access, 1 mg Glucagon IM. For BG less than 50 mg/dL: Oral treatment preferred:?? If able to drink, give 240 mL Juice or Regular (not diet) soda OR If NPO, give 30 gram glucose 40% oral gel massaged in buccal mucosa OR if unconsc ious or uncooperative, give 25 gram (250 mL) Dextrose 10% IV over 15 minutes per protocol OR, if no IV access, 1 mg Glucagon IM. Recheck BG in 30 minutes. May r epeat juice/soda, gel, dextrose or gluca peterson once per episode. For persistent hypoglycemia, consider longer-acting treatment for the duration of the active insulin. glucagon (human recombinant) injection SolR 1 mg(Linked Group 3) 1 mg, Intramuscular, EVERY 30 MIN PRN, S tarting Sun08/12/19 at 2102, Until Sun08/13/19 at 1217, Low blood sugar, For BG 50-70 mg/dL: Oral treatment preferred:?? If able to drink, give 120 mL Juice or Regular (not diet) soda OR If NPO, give 15 gram glucose 40% oral gel massaged into buccal mucosa OR if unconscious or uncooperative, give 25 gram (250 mL) Dextrose 10% IV over 15 minutes per protocol O R, if no IV access, 1 mg Glucagon IM. For BG less than 50 mg/dL: Oral treatment preferred:?? If able to drink, give 240 mL Juice or Regular (not diet) soda OR If NPO, give 30 gram glucose 40% oral ge l massaged in buccal mucosa OR if uncons cious or uncooperative, give 25 gram (250 mL) Dextrose 10% IV over 15 minutes per protocol OR, if no IV access, 1 mg Glucagon IM. Recheck BG in 30 minutes. May repeat juice/soda, gel, dextrose or gluc agon once per episode. For persistent hypoglycemia, consider longer-acting treatment for the duration of the active insulin., Routine glucose (GLUTOSE) 40% oral gel(Linked Group 3) 15-30 g, Buccal, EVERY 30 MIN PRN, Start ing Sun08/12/19 at 2102, Until Sun08/13/19 at 1217, Low blood sugar, For BG 50-70 mg/dL: Oral treatment preferred:?? If able to drink, give 120 mL Juice or Reg ular (not diet) soda OR If NPO, give 15 gram glucose 40% oral gel massaged into buccal mucosa OR if unconscious or uncooperative, give 25 gram (250 mL) Dextrose 10% IV over 15 minutes per protocol OR, i f no IV access, 1 mg Glucagon IM. For BG less than 50 mg/dL: Oral treatment preferred:?? If able to drink, give 240 mL Juice or Regular (not diet) soda OR If NPO, give 30 gram glucose 40% oral gel ma ssaged in buccal mucosa OR if unconsciou s or uncooperative, give 25 gram (250 mL) Dextrose 10% IV over 15 minutes per protocol OR, if no IV access, 1 mg Glucagon IM. Recheck BG in 30 minutes. May repe at juice/soda, gel, dextrose or glucagon once per episode. For persistent hypoglycemia, consider longer-acting treatment for the duration of the active insulin. 1 tube contains 15 grams of glucose (net weight of tube = 37.5 grams., Routine ibuprofen (Advil;Motrin) tablet 600 mg 1 748 (Given - Provider: Nuria Washington RN) 600 mg, Oral, EVERY 6 HOURS PRN, Startin g e 08/12/19 at 1714, Until Sun08/13/19 at 1217, Pain, Administer orally with milk or food to minimize GI irritation. Maximum dose of 3200 mg from all sources in 24 hours, Routine labetalol (NORMODYNE,TRANDATE) injection 10-20 mg 10-20 mg, Intravenous, EVERY 4 HOURS PRN , Starting 08/12/19 at 2102, Until Sun08/13/19 at 1217, High Blood Pressure, Give 10 mg for SBP >160; if remains >160 after 1 hour, give 20 mg, Give if SBP greater than 160 mmHg, Routine lidocaine (XYLOCAINE) 10 mg/mL (1 %) injection 3 mg 3 mg (0.3 mL), Subcutaneous, ONCE PRN, 1 dose, Starting 08/12/19 at 2102, Until Sun08/13/19 at 1217, for discomfort with PIV insertion, Recovery (Recovery-Hospital Unit), Routine oxyCODONE (Roxicodone) tablet 5 mg (CANCELED) 6 (Given - Provider: Celestina Tapia, BRYAN) 5 mg, Oral, 2 TIMES DAILY PRN, Starting 08/12/19 at 2334, Until Sun08/13/19 at 0548, Pain, Routine sodium chloride 0.9 % (flush) flush 5-20 mL 5-20 mL, Intravenous, EVERY 1 MIN PRN, S tarting 08/12/19 at 2102, Until 08/13/19 at 1217, flush, Flush pertains to all indwelling lines. Flush per protocol found in the job aid using the link prov ided on this medication record., Recovery (Recovery-Hospital Uni t), Routine sodium chloride 0.9 % (flush) flush 5-20 mL 5-20 mL, Intravenous, EVERY 1 MIN PRN, S tarting Sun08/12/19 at 2102, Until Sun08/13/19 at 1217, flush, Flush pertains to all indwelling lines. Flush per protocol found in the job aid using the link prov ided on this medication record., Angio/IR (Day of Procedure), Ro utine Linked Groups Order Group 1: calcium citrate (Calcitrate) tablet 950 mgJump to med 950 mg, Oral, 3 TIMES DAILY, First dose on Sun08/12/19 at 2130, Until Discontinued, Routine And cholecalciferol (Vitamin D3) (Vitamin D3) tablet 800 UnitsJump to med 800 Units, Oral, 3 TIMES DAILY, First do se on Sun08/12/19 at 2130, Until Discontinued
40 units is equivalent to 1 mcg of cholecalciferol.
Routine Group 2: POCT Fingerstick Glucose (CANCELED) Routine, 4 TIMES DAILY BEFORE MEALS & AT BEDTIME, First occurrence on Sun08/12/19 at 2200, Until Specified
Consider choosing FOUR TIMES A DAY BEFORE MEALS AND AT BEDTIME as frequency fo r: Patients who have good hypoglycemia a wareness: -Patients who are eating meals during the day and sleeping at night -Patient who are otherwise stable And insulin lispro (HumaLOG) VIAL injection 1-5 UnitsJump to med 1-5 Units, Subcutaneous, 3 TIMES DAILY B EFORE MEALS, First dose on Sun08/12/19 at 2130, Until Discontinued
CORRECTION BOLUS [1-4 Units] Sensitive Sliding Scale: Correction factor 4 0 (1 unit of insulin is expected to drop the glucose 40 mg/dL) BG 160 - 200 Give 1 unit BG 201 - 240 Give 2 units BG 241 - 280 Give 3 units BG greater than 280, give 4 units and recheck BG in 2 hours. - If recheck BG is LESS than 280, give no insulin and resume schedule - If recheck BG is GREATER than 280, give 4 units and repeat BG in 2 hours (no more than 3 times) & call for new insulin orders. DO NOT hold if NPO, unless specifically told to do so. Per Blood Glucose Monitoring Policy, re-check a BG of > 240 in 2 hours.
Routine Group 3: glucose (GLUTOSE) 40% oral gelJump to med 15-30 g, Buccal, EVERY 30 MIN PRN, Start ing Sun08/12/19 at 2102, Until Sun08/13/19 at 1217, Low blood sugar
For BG 50-70 mg/dL: Oral treatment preferred:?? If able to drink, give 120 mL Juic e or Regular (not diet) soda OR If NPO, give 15 gram glucose 40% oral gel massaged into buccal mucosa OR if unconscious or uncooperative, give 25 gram (250 mL) Dextrose 10% IV over 15 minutes per protoc ol OR, if no IV access, 1 mg Glucagon IM . For BG less than 50 mg/dL: Oral treatment preferred:?? If able to drink, give 240 mL Juice or Regular (not diet) soda OR If NPO, give 30 gram gluco se 40% oral gel massaged in buccal mucos a OR if unconscious or uncooperative, give 25 gram (250 mL) Dextrose 10% IV over 15 minutes per protocol OR, if no IV access, 1 mg Glucagon IM. Recheck BG in 30 minutes. May repeat juice/soda , gel, dextrose or glucagon once per episode. For persistent hypoglycemia, consider longer-acting treatment for the duration of the active insulin. 1 tube contains 15 grams o f glucose (net weight of tube = 37.5 grams.
Routine Or dextrose 10% infusionJump to med 250 mL, at 1,000 mL/hr, Intravenous, DEBBY RY 30 MIN PRN, Starting Sun08/12/19 at 2102, Until Sun08/13/19 at 1217
For BG 50-70 mg/dL: Oral treatment preferred:?? If able to drink, give 120 mL J uice or Regular (not diet) soda OR If FLORICULTURIST O, give 15 gram glucose 40% oral gel massaged into buccal mucosa OR if unconscious or uncooperative, give 25 gram (250 mL) Dextrose 10% IV over 15 minutes per pro tocol OR, if no IV access, 1 mg Glucagon IM. For BG less than 50 mg/dL: Oral treatment preferred:?? If able to drink, give 240 mL Juice or Regular (not diet) soda OR If NPO, give 30 gram gl ucose 40% oral gel massaged in buccal mu cosa OR if unconscious or uncooperative, give 25 gram (250 mL) Dextrose 10% IV over 15 minutes per protocol OR, if no IV access, 1 mg Glucagon IM. Rech saúl BG in 30 minutes. May repeat juice/s shazia, gel, dextrose or glucagon once per episode. For persistent hypoglycemia, consider longer-acting treatment for the duration of the active insulin.
Or glucagon (human recombinant) injection SolR 1 mgJump to med 1 mg, Intramuscular, EVERY 30 MIN PRN, S tarting 08/12/19 at 2102, Until 08/13/19 at 1217, Low blood sugar
For BG 50-70 mg/dL: Oral treatment preferred:?? If able to drink, give 120 mL Juice or Regular (not diet) soda OR If N PO, give 15 gram glucose 40% oral gel massaged into buccal mucosa OR if unconscious or uncooperative, give 25 gram (250 mL) Dextrose 10% IV over 15 minutes per pr otocol OR, if no IV access, 1 mg Glucago n IM. For BG less than 50 mg/dL: Oral treatment preferred:?? If able to drink, give 240 mL Juice or Regular (not diet) soda OR If NPO, give 30 gram g lucose 40% oral gel massaged in buccal m ucosa OR if unconscious or uncooperative, give 25 gram (250 mL) Dextrose 10% IV over 15 minutes per protocol OR, if no IV access, 1 mg Glucagon IM. Rec heck BG in 30 minutes. May repeat juice/ soda, gel, dextrose or glucagon once per episode. For persistent hypoglycemia, consider longer-acting treatment for the duration of the active insulin.
Routine documented in this encounter Care Teams Records Analysis Manager Relationship Specialty Start Date End Date Albert Zuleta MD PCP - General Family Medicine 01/17/17 10/26/21 [address] [place] [address] documented as of this encounter
--- OUTSIDE RECORDS SUMMARY | 2022-02-08 01:51 | XMS_ITS | Encounter Summary ---
:1960 Author Organization [facility] Address [address] [place] [address] Care Team Providers Name Role Phone Albert [...] Expiration Date Visits Requ ested Visits Authorized [id number] 1 1 Encounter Details Date Type Department Care Team Description 08/13/2019 Office Visit Gastroenterology [place] [facility] [place] Hailey Mcclendon, Hepatic cirrhosis, [facility] Maciel lorenzana MD [place] [address] One Medical cirrhosis type, Center unspecified whether [place], [place] ascites present [id number] Social History Tobacco Use Types Packs/Day Years [...] Sign Reading Time Taken Comments Blood Pressure 119/51 08/13/2019 12:28 PM EST Pulse 66 08/13/2019 12:28 PM EST Temperature - - Respiratory Rate - - Oxygen Saturation - - Inhaled Oxygen Concentration - - Weight 131 kg (288 lb 14.4 oz) 08/13/2019 12:28 PM EST Height - - Body Mass Index 46.63 06/13/2019 2:48 PM EST documented in this encounter Progress Notes Hailey Mcclendon MD - 08/13/2019 12:30 PM EST Gastroenterology and Hepatology Follow Up Note Patient: Blossom Samayoa : 1960 Provider: Hailey Mcclendon MD Problem List: 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 MELD-Na score: 8 at 01/06/2019 12:55 PM MELD score: 8 at 01/06/2019 12:55 PM Calculated from: Serum Creatinine: 0.70 mg/dL (Rounded to 1 mg/dL) at 01/06/2019 12:55 PM Serum Sodium: 144 mmol/L (Rounded to 137 mmol/L) at 01/06/2019 12:55 PM Total Bilirubin: 1.1 mg/dL at 01/04/2019 9:25 PM INR(ratio): 1.1 at 01/04/2019 9:25 PM Age: 58 years Current Outpatient Medications Medication Sig Dispense Refill ??? ibuprofen (Advil;Motrin) 600 mg Tablet Take [...] TAKE ONE TABLET BY MOUTH DAILY 3 ??? calcium citrate (Calcitrate) 200 mg (950 mg) Tablet Take 3 tablets by mouth 2 times daily. 60 tablet 2 ??? cholecalciferol, Vitamin D3, (Vitamin D3) 400 unit Tablet Take 2 tablets by mouth 3 times daily.60 tablet 2 No current facility-administered medications for this visit. Vitals: 08/13/19 1228 BP: 119/51 [facility] Patient Position: Sitting BP Cuff Sizes: Large Adult (32-43 cm) Pulse: 66 Weight: 131 kg (288 lb 14.4 oz) Body mass index is 46.63 kg/m??. Exam: Appears stated age, ice pack on fresh surgical scar on neck from recent thyroidectomy. 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 She is well compensated. Repeat CBC, CMP, and INR in September 2019. #2 At risk for HCC Ultrasound and AFP every 6 months. Next due in 09/2019. #3 At risk for esophageal varices As her platelet count is >150, Fibroscan had a kPa >20. Recommend EGD for screening. If large varices are found would start beta ravindra. Hailey Mcclendon MD Section of Gastroenterology & Hepatology [address] [place] [address] 15 minutes of this 16 minute visit was spent in discussion. Cc: Albert Zuleta MD documented in this encounter Procedure Notes Adela Durham APRN - 08/13/2019 12:30 PM ESTAssociated Order(s): FIBROSCAN Procedure(s): FIBROSCAN Pre-Procedure Diagnose(s): Hepatic cirrhosis, unspecified hepatic cirrhosis type, unspecified whether ascites present [facility] Liver Fibrosis Assessment Report Indication: Cirrhosis, evaluate need for varices surveillance Performed by: ADELA DURHAM APRN Procedure: Vibration Controlled Transient Elastography (VCTE) or Fibroscan [place] Protocol: Patient's identity, procedure and site were verified, confirmatory pause performed. Discussed procedure including risks and potential complications. Questions answered. Patient verbalizes understanding and wishes to proceed with Fibroscan assessment. Patient was placed in the supine position with right arm in maximum abduction to allow optimal exposure of right lateral abdomen. Patient was briefly assessed. Testing was performed in the mid-axillarylocation. 50Hz Shear Wave pulses were applied and the resulting Shear Wave and Propagation Speed wasdetected with a 3.5MHz ultrasonic signal, using the Fibroscan probe. Skin to liver capsule distance and liver parenchyma were accessed during the entire examination with the Fibroscan probe. Patient was instructed to breathe normally and abstain from sudden movements during the procedure. At least tenSheer Waves were produced; individual measurements of each Shear Wave were calculated. Patient tolerated the procedure well with no complications. Fibroscan Results: Median kPa: 22.0 kPa Mean IQR: 8 (goal is <30 %) Number of valid measurements: 13 (at least 10 required) Number of invalid measurements: 1 Predicted fibrosis stage: F4, cirrhosis with portal hypertension CAP (dB/m): 325 Estimated steatosis grade: 3/3 % hepatocytes affected: >66% Interpretation: Based on this Fibroscan result, history, clinical examination and review of laboratory and radiological data, this patient likely has stage 4 liver fibrosis and grade 3 steatosis affecting over 66% of hepatocytes. documented in this encounter Plan of Treatment Upcoming Encounters Date Type Specialty Care Team Description 03/15/2022 Office Visit Neurology Ryann Barfield APRN [facility] [address] [place] [place] [address] 03/23/2022 Appointment Radiology Hailey Mcclendon MD [facility] [place] [address] 03/23/2022 Laboratory Appointment Lab 03/23/2022 Office Visit Gastroenterology Hailey Mcclendon MD [facility] [address] [address] 05/23/2022 Procedure visit Maxillofacial Surgery Corby Montes MD [facility] [address] [place] [address] Scheduled Orders Name Type Priority Associated Diagnoses Order S chedule CBC (with Diff) Lab Routine Hepatic cirrhosis, Expect ed: 08/13/2019 unspecified hepatic cirrhosi s (Approximate), Expires: type, unspecified whether ascites present documented as of this encounter Procedures Procedure Name Priority Date/Time Associated Diagnosis Comme nts [id number] Routine 08/13/2019 12:30 PM Hepatic cirrhosis, Re sults for this EST unspecified hepatic procedur e are in cirrhosis type, the results unspecified whether section. ascites present documented in this encounter Results US Abdomen [...] report, please contact t he number below. Electronically signed by: Tasia carpenter MD, [facility] ([phone]), at 12/30/2019 11:25 AM ?Tasia Giron, Staff Physician Electronically Signed Final Report ?? 11:32 am Narrative 12/30/2019 11:33 AM EDT Abdominal ? (Signed Final 12/30/2019 11:32 am) PATIENT INFO: ID #: ? [id number] ?: ??[birth year] (59 yrs)(F) Name: ? BLOSSOM L ? Visit Date: 12/30/2019 10:41 am ? TARA PERFORMED BY: Performed By: ? Maxine Miranda RDMS Attending: ?Bree RUIZ, There Sean. Resident: ? Jeanne RUIZ, Brii Givens Referred By: ?ADELA DURHAM Location: ? [place] SERVICE(S) PROVIDED: ??UABDLIM - Hepatology Protocol - Abdom inal ? [id number] ??Limited Survey Single Organ or Quadra nt - ??[id number] INDICATIONS: ??cirrhosis, survey for hcc ------ LIVER: [...] 11:3 2 am) PATIENT INFO: ID #: [id number] : [birth year] (59 y rs)(F) Name: BLOSSOM Ray Visit Date: 12/30/2019 10:41 am TARA PERFORMED BY: Performed By: Maxine Miranda RDMS Attending: Tasia Giron MD Resident: Cindi Angel MD Referred By: ADELA DURHAM Location: [place] SERVICE(S) PROVIDED: UABDLIM - Hepatology Protocol - Abdomin al [id number] Limited Survey Single Organ or Quadrant - [id number] INDICATIONS: cirrhosis, survey for hcc ------ LIVER: [...] report, please contact t he number below. Electronically signed by: Tasia carpenter MD, [facility] ([phone]), at 12/30/2019 11:25 AM Tasia Giron, Staff Physician Electronically Signed Final Report 12/29 11:32 am Adela Durham APRN IMG US GEN ORDERABLES AFP tumor marker (09/25/2019 10:07 AM EST) P athologist Signature AFP <1.9 <=8.3 ng/mL [facility] Specimen Anatomical Collection Method Collection Time Receive d Time (Source) Location / / Volume Laterality Blood specimen 09/25/2019 10:07 0 (specimen) AM EST 10:49 AM EST Resulting Agency Comment Spec In Lab Adela Durham APRN CHEMISTRY ORDERABLES Performing Organization Address City/State/[place] [address] (ABNORMAL) Prothrombin Time (09/25/2019 10:07 AM EST) P athologist Signature PT 12.8 (H) 9.4 - 12.5 [facility] INR 1.1 [facility] Comment: An INR <2.0 [...] Location / / Volume Laterality Blood specimen 09/25/2019 10:07 0 (specimen) AM EST 10:25 AM EST Resulting Agency Comment Spec In Lab Adela Durham APRN HEMATOLOGY ORDERABLES Performing Organization Address City/State/ZIP Code Phon e Number [place] [id number] (ABNORMAL) Comprehensive metabolic panel (non-fasting) (09/25/2019 10:07 AM EST) athologist Signature Glucose Lvl 262 (H) 65 - 199 [facility] mg/dL [facility] Comment: Diabetes: >=200 mg/dL plus symp toms BUN 14 8 - 18 mg/dL [facility] Creatinine 0.72 0.70 - 1.20 mg/dL [facility] Sodium 139 135 - 145 mmol/L [facility] Potassium 4.4 3.5 - 5.0 mmol/L [facility] Comment: Please note: ??Patients with WBC >100,00 0 may have falsely elevated Potassium levels. ??For accurate Potassium quantif ication in these patients send serum separator tube (gold top) for subsequent determinations. ??Contact the Clinical Chemistry Laboratory if there are any qu estions. Chloride 101 98 - 107 mmol/L [facility] CO2 21 (L) 22 - 31 mmol/L [facility] Anion Gap 17 (H) 5 - 15 mmol/L [facility] Calcium 10.1 8.5 - 10.5 mg/dL [facility] Total Protein 7.9 6.1 - 8.0 gm/dL [facility] Albumin 4.7 3.2 - 5.2 gm/dL [facility] AST 42 (H) 0 - 30 unit/L [facility] ALT 38 (H) 0 - 30 unit/L [facility] Alk Phos 100 35 - 105 unit/L [facility] Total Bilirubin 0.9 0.2 - 1.3 mg/dL [facility] Estimated GFR 92 >=60 mL/min/1.73 m?? [facility] Comment: The eGFR was calculated using the CKD-EP I equation. As with all creatinine based estimates of kidney function, eGFR values calculated with the CKD-EPI equation are not accurate in patients wi th acute kidney failure, extremes of body mass or the acutely ill. http://[employer]/[facility] eGFR 106 >=60 mL/min/1.73 m?? [facility] Comment: The eGFR was calculated using the CKD-EP I equation. As with all creatinine based estimates of kidney function, eGFR values calculated with the CKD-EPI equation are not accurate in patients wi th acute kidney failure, extremes of body mass or the acutely ill. http://[employer]/[facility] Specimen Anatomical Collection Method Collection Time Receive d Time (Source) Location / / Volume Laterality Blood specimen 09/25/2019 10:07 0 (specimen) AM EST 10:25 AM EST Resulting Agency Comment Spec In Lab Adela Durham APRN CHEMISTRY ORDERABLES Performing Organization Address City/State/[place] [address] [id number] (08/13/2019 12:30 PM EST) Narrative Adela Durham APRN - 08/13/2019 12: 30 PM EST Adela Durham APRN ? 08/14/2019 ??8:55 AM [facility] Liver Fibrosis Asses sment Report Indication: ?? Cirrhosis, evaluate need for varices surveillance Performed by: ??ADELA DURHAM APRN Procedure: Vibration Controlled Transien t Elastography (VCTE) or Fibroscan [place] Protocol: Patient's identity, procedure and site were verified, confirmatory pause performed. Discussed procedure including risks and potential complicati ons. Questions answered. Patient verbalizes understanding and wis hes to proceed with Fibroscan assessment. Patient was placed in the supine positio n with right arm in maximum abduction to allow optimal expos ure of right lateral abdomen. Patient was briefly assessed. T esting was performed in the mid-axillary location. 50Hz Shear Wa ve pulses were applied and the resulting Shear Wave and Propaga tion Speed was detected with a 3.5MHz ultrasonic signal, using t he Fibroscan probe. Skin to liver capsule distance and liver pare nchyma were accessed during the entire examination with the F ibroscan probe. Patient was instructed to breathe normally and a bstain from sudden movements during the procedure. At least ten Sheer Waves were produced; individual measurements of eac h Shear Wave were calculated. Patient tolerated the proced ure well with no complications. Fibroscan Results: Median kPa: 22.0 kPa Mean IQR: 8 (goal is <30 %) Number of valid measurements: 13 (at liza st 10 required) Number of invalid measurements: 1 Predicted fibrosis stage: F4, cirrhosis with portal hypertension CAP (dB/m): 325 Estimated steatosis grade: 3/3 % hepatocytes affected: >66% Interpretation: Based on this Fibroscan result, history, clinical examination and review of laboratory and radiological da ta, this patient likely has stage 4 liver fibrosis and grade 3 s teatosis affecting over 66% of hepatocytes. ?? Adela Durham APRN PROCEDURE/MINOR SURGICAL ORD ERABLES documented in this encounter Visit Diagnoses Diagnosis Hepatic cirrhosis, unspecified hepatic c irrhosis type, unspecified whether ascites present Nephrolithiasis Calculus of kidney Hepatic cirrhosis, unspecified hepatic c irrhosis type, unspecified whether ascites present documented in this encounter Care Teams Mottler Machine Feeder Relationship Specialty Start Date End Date Albert Zuleta MD PCP - General Family Medicine 01/17/17 10/26/21 [place] [address] documented as of this encounter
--- OUTSIDE RECORDS SUMMARY | 2022-02-08 01:51 | XMS_ITS | Encounter Summary ---
:1960 Author Organization [place] [address] Care Team Providers Name Role Phone Albert Zuleta MD Primary Care Provider Encounter Details Date Type Department Care Team Description 12/29/2019 Abstract Cardiology at [facility] Ida [place], [place] [address] Social History Tobacco Use Types Packs/Day [...] Visit Neurology Ryann Barfield, [facility] [address] [place], [place] [address] 03/23/2022 Appointment Radiology Hailey Mcclendon MD [facility] [address] [place] [address] 03/23/2022 Laboratory Appointment Lab 03/23/2022 Office Visit Gastroenterology Hailey Mcclendon MD [facility] [place] [address] 05/23/2022 Procedure visit Maxillofacial Surgery Corby Montes MD [facility] [place] [address] documented as of this encounter Visit Diagnoses Not on filedocumented in this encounter Care Teams Maintenance Groundman Relationship Specialty Start Date End Date Albert Zuleta MD PCP - General Family Medicine 01/17/17 10/26/21 [place] [address] documented as of this encounter
--- OUTSIDE RECORDS SUMMARY | 2022-02-08 01:51 | XMS_ITS | Encounter Summary ---
:1960 Author Organization [facility] [place] [address] Care Team Providers Name Role Phone Albert Zuleta MD Primary Care Provider Encounter Details Date Type Department Care Team Description 06/13/2019 [facility] Ace Henry MD Postop check [facility] [place] [address] GENERAL SURGERY [phone] [place] [id number] (Wo rk) Social History Tobacco Use Types [...] documented as of this encounter Progress Notes Ace Henry MD - 06/13/2019 11:45 AM EST Ms. Samayoa returns to clinic today s/p exploratory laparotomy with SBR for sepsis complicated postoperatively by subcutaneous abscesses requiring IR drain(s). She reports she has done well. She is moving her bowels regularly facilitated by questran, tolerating a diet. No nausea/vomiting. Her abdomen f eels well. On exam, she appears well and in no acute distress. Abdomen obese, soft, NT/ND, no clinically recurrent hernia. Assessment/Plan: Ms. Samayoa is overall doing quite well. I've encouraged her to call at any time infuture if questions or concerns were to occur and she appears to appreciate this. documented in this encounter Plan of Treatment Upcoming Encounters Date Type Specialty Care Team Description 03/15/2022 Office Visit Neurology Ryann Barfield APRN [facility] [address] [place] [address] 03/23/2022 Appointment Radiology Hailey Mcclendon MD [facility] R[place]ARD [place] [address] 03/23/2022 Laboratory Appointment Lab 03/23/2022 Office Visit Gastroenterology Hailey Mcclendon MD [facility] R[place] [address]375 05/23/2022 Procedure visit Maxillofacial Surgery Corby Montes MD [facility] R[place] [address]375 documented as of this encounter Visit Diagnoses Diagnosis Postop check Follow-up examination, following unspeci fied surgery documented in this encounter Care Teams Boatbuilder Wood Relationship Specialty Start Date End Date Albert Zuleta MD PCP - General Family Medicine 01/17/17 10/26/21 [place] [address] documented as of this encounter
--- OUTSIDE RECORDS SUMMARY | 2022-02-08 01:51 | XMS_ITS | Encounter Summary ---
:1960 Author Organization [facility] [place] [address] Care Team Providers Name Role Phone Albert [...] Expiration Date Visits Requ ested Visits Authorized [id number] 1 1 Encounter Details Date Type Department Care Team Description 08/12/2019 - Hospital Encounter Short Stay Unit at [facility], [facility] erparathyroidism 08/13/2019 Hailey Estrada MD , [facility] [address] [phone] Social History Tobacco Use Types Packs/Day Years [...] Time Taken Comments Blood Pressure 119/51 08/13/2019 6:49 AM EST Pulse 66 08/13/2019 6:49 AM EST Temperature 36.6 ??C (97.9 ??F) 08/13/2019 6:49 AM EST Respiratory Rate 20 08/13/2019 6:49 AM EST Oxygen Saturation 97% 08/13/2019 6:49 AM EST Inhaled Oxygen Concentration - - [...] HYDROcodone-acetaminophen 5-325 mg Tab Commonly known as: [place] Take 1 tablet by mouth 2 times [...] Center 08/13/2019 12:30 PM Hailey Mcclendon MD [facility] 09/25/2019 10:10 AM CHRISTOFER GARCIA L Miriam 3L [place] 09/25/2019 11:20 AM Anne Gonzales APRN [facility] SURG [facility] 12/30/2019 10:00 AM [facility] US ROOM 5 [facility] Rad 12/30/2019 11:00 AM Crow Galvin Jr., MD [facility] URO [facility] Outpatient Services/Studies: PTH Standing Status: Future Standing [...] Take NSAIDS or Tylenol every 6 hours [id number] for the first 3-5 days following surgery [...] Center 08/13/2019 12:30 PM Hailey Mcclendon MD [facility] GASTRO [facility] 09/25/2019 10:10 AM LAB, THREE L Lab 3L [place] 09/25/2019 11:20 AM Anne Gonzales APRN [facility] SURG [facility] 12/30/2019 10:00 AM [facility] ROOM 5 [facility] 12/30/2019 11:00 AM Crow Galvin Jr., MD [facility] Please call [phone] to confirm the date and time of [...] with your PCP. Phone number for questions: [phone] before 5 PM on weekdays [phone] after 5 PM and on weekends/holidays. Ask for the general surgery resident career technical education instructor. General Instructions None Follow-up Recommendations for Providers: [...] Take NSAIDS or Tylenol every 6 hours [id number] for the first 3-5 days following surgery [...] Center 08/13/2019 12:30 PM Hailey Mcclendon MD [facility] GASTRO [facility] 09/25/2019 10:10 AM LAB, THREE L Lab 3L [place] 09/25/2019 11:20 AM Anne Gonzales APRN [facility] SURG [facility] 12/30/2019 10:00 AM [facility] ROOM 5 [facility] Rad 12/30/2019 11:00 AM Crow Galvin Jr., MD [facility] Please call [phone] to confirm the date and time of [...] with your PCP. Phone number for questions: [phone] before 5 PM on weekdays [phone] after 5 PM and on weekends/holidays. Ask for the general surgery resident career technical education instructor. AttachmentsThe following attachments cannot be sent through Care Everywhere. Parathyroidectomy: Post-op (Turkmen)documented in this encounter Medications at Time of [...] Arambula RN - 08/12/2019 8:22 PM EST 2014 Report to Irina Oscar. 2019 Paged Surgery leadership program internship to address code status. Nuria [place] RN [...] I would before going to [address] [place] [employer] wheels and axle inspector notified. Paulino Sauer MD - 08/12/2019 6:03 [...] 46 9 - 77 pg/mL Intraoperative PTH ([facility]/CGP) Result Value Ref Range Intraoper PTH 48 9 - 77 pg/mL Surgical Pathology Report Result Value Ref Range Surgical Pathology Report [id number] Location: OR; OR22; A The signing pathologist has (i) examined the relevant preparation(s) for the specimen(s) and (ii) rendered or confirmed the diagnosis(es). . Frozen Section FROZEN SECTION DIAGNOSIS A - Questioning left lower parathyroid for frozen section - Parathyroid gland. 08/12/19 15:44 Electronically signed by: Gina Mckeon DO Verified: 08/12/2019 Pathologist Performed at: -[facility] Dept. of Pathology, [place], [place] This intraoperative consultation should be interpreted as a preliminary diagnosis pending review of the entire specimen and special studies, if any. Intraoperative PTH ([facility]/CGP) Result Value Ref Range Intraoper PTH 9 9 - 77 pg/mL Intraoperative PTH ([facility]/CGP) Result Value Ref Range Intraoper PTH 7 [...] well approximated, Skin otherwise intact. Patient reports 5/8/10 pain (some chronic) no N/V. Treated with [...] Luu MD - 08/12/2019 3:49 PM EST [facility] Operative Note Patient Name: Blossom Samayoa : [id number] MR#: [id number] Case Date: 08/12/2019 Surgeon: Surgeon(s) and Role: [...] Please call OR 22 with results (ext [id number]). Thank you.Hy Hyperparathyroidism Questioning left lower parathyroid [...] anesthesia was completed by anesthesiology with the [employer] recurrent laryngeal nerve monitoring system. A crease [...] MD 08/12/2019 Brief Op Note - Duyen Luu MD - 08/12/2019 3:48 PM EST Brief Operative Note Patient Name: Blossom Samayoa : [id number] MR#: [id number] Case Date: 08/12/2019 Surgeon: Surgeon(s) and Role: [...] Please call OR 22 with results (ext [id number]). Thank you.Hy Hyperparathyroidism Questioning left lower parathyroid [...] 03/15/2022 Office Visit Neurology Ryann Barfield APRN [facility] [address] [place] [address] 03/23/2022 Appointment Radiology Hailey Mcclendon MD [facility] [place] [address] 03/23/2022 Laboratory Appointment Lab 03/23/2022 Office Visit Gastroenterology Hailey Mcclendon MD [facility] [place] [address] 05/23/2022 Procedure visit Maxillofacial Surgery Corby Montes MD [facility] [address] [place] [address] Scheduled Orders Name Type Priority Associated [...] Signature POC Glucose 157 65 - 199 [facility] mg/dL [facility] Comment: Supplemental ranges: <140 mg/dL before meals <180 mg/dL all other times of the day Specimen Anatomical Collection Method Collection Time Receive d Time (Source) Location / / Volume Laterality Blood specimen 08/13/2019 6:49 AM 020 6:49 (specimen) EST AM EST Duyen Luu MD POINT OF CARE TEST ORDERABLE S Performing Organization Address City/State/ZIP [place] [address] POCT Glucose (08/12/2019 9:14 PM EST) athologist Signature POC Glucose 134 65 - 199 [facility] Comment: Supplemental ranges: <140 mg/dL before meals <180 mg/dL all other times of the day Specimen Anatomical Collection Method Collection Time Receive d Time (Source) Location / / Volume Laterality Blood specimen 08/12/2019 9:14 PM 020 9:14 (specimen) EST PM EST Duyen Luu MD POINT OF CARE TEST ORDERABLE S Performing Organization Address City/State/ZIP [place] [address] POCT Glucose (08/12/2019 5:43 PM EST) athologist Signature POC Glucose 129 65 - 199 [facility] mg/dL [facility] Comment: Supplemental ranges: <140 mg/dL before meals <180 mg/dL all other times of the day Specimen Anatomical Collection Method Collection Time Receive d Time (Source) Location / / Volume Laterality Blood specimen 08/12/2019 5:43 PM 020 5:43 (specimen) EST PM EST Duyen Luu MD POINT OF CARE TEST ORDERABLE S Performing Organization Address City/[facility]/ZIP Code [place] [address] (ABNORMAL) Intraoperative PTH ([facility]/CGP) (08/12/2019 3:23 PM EST) athologist Signature Intraoper PTH 7 (L) 9 - 77 [facility]/mL [facility] Comment: Called by: eligio, Read back by: glenny delong, Date/Time:08/12/19 15:56. A 50 % decrease in venous iPTH levels at 10 min post adenoma excision is expected if all the hypersecreting parat hyroid tissue has been removed (Lee GL et al. Surgery 1993:114; [id number]) Specimen Anatomical Collection Method Collection Time Receive d Time (Source) Location / / Volume Laterality Blood specimen 08/12/2019 3:23 PM 020 3:30 (specimen) EST PM EST Resulting Agency Comment Spec In Lab Duyen Luu MD CHEMISTRY ORDERABLES Performing Organization Address City/[facility]/ZIP Code Phon e Number [address] Intraoperative PTH ([facility]/CGP) (08/12/2019 3:20 PM EST) P athologist Signature Intraoper PTH 9 9 - 77 [facility]mL [facility] Comment: Called by: eligio, Read back by: glenny delong, Date/Time:08/12/19 15:51. A 50 % decrease in venous iPTH levels at 10 min post adenoma excision is expected if all the hypersecreting parat hyroid tissue has been removed (Lee GL et al. Surgery 1993:114; 1299-1180) Specimen Anatomical Collection Method Collection Time Receive d Time (Source) Location / / Volume Laterality Blood specimen 08/12/2019 3:20 PM 020 3:25 (specimen) EST PM EST Resulting Agency Comment Spec In Lab Duyen Luu MD CHEMISTRY ORDERABLES Performing Organization Address City/[facility]/ZIP Code Phon e Number [address] Specimen to Pathology (08/12/2019 3:14 PM EST) Specimen Anatomical Collection Method Collection Time Receive d Time (Source) Location / / Volume Laterality AP Specimen 08/12/2019 3:14 PM 0 3:14 EST PM EST Narrative [facility] - 08/12/2019 3:14 PM EST Specimen requisition ordered. ??Separate Pathology report to follow Duyen Luu MD PATHOLOGY/CYTOLOGY ORDERABLE S Performing Organization Address City/[facility]/ZIP [facility] Phon e Number [address] Surgical Pathology Report (08/12/2019 3:11 PM EST) Component Value Ref Test Analysis Performed At Patholo gist Range Method Time Signature Surgical [id number] ? Location: [facility]; [facility]; A [facility] Report The signing pathologist has (i) examined the relevant preparation(s) for the [facility] specimen(s) and (ii) rendered or confirmed the diagnosis(es) . HOSPITAL LABORATORY . ?Surgic al Pathology DIAGNOSIS A - Left lower parathyroid, for frozen section: - Parathyroid gland. Electronically signed by: ??Gina Mckeon DO Verified: ??08/15/2019 ?Pathologist Performed at: ??-[facility] Dept. of Pathology, [place], [place] CLINICAL INFORMATION Specimen Submitted: A - [...] Mckeon DO Verified: ??08/12/2019 ?Pathologist Performed at: ??-[facility] Dept. of Pathology, [place], [place] This intraoperative consultation should be interpreted as a preliminary diagnosis pending review of the entire specimen and sp ecial studies, if any. Specimen (Source) Anatomical Collection Method Collection Time Re ceived Time Location / / Volume Laterality 08/12/2019 3:11 PM EST Duyen Luu MD PATHOLOGY/CYTOLOGY ORDERABLE S Performing Organization Address City/State/ZIP [place] [address] Intraoperative PTH ([facility]/CGP) (08/12/2019 3:06 PM EST) athologist Signature Intraoper PTH 48 9 - 77 [facility]/mL [facility] Comment: Called by: eligio, Read back by: glenny delong, Date/Time:08/12/19 15:44. A 50 % decrease in venous iPTH levels at 10 min post adenoma excision is expected if all the hypersecreting parat hyroid tissue has been removed (Lee GL et al. Surgery 1993:114; 3383-6758) Specimen Anatomical Collection Method Collection Time Receive d Time (Source) Location / / Volume Laterality Blood specimen 08/12/2019 3:06 PM 020 3:16 (specimen) EST PM EST Resulting Agency Comment Spec In Lab Duyen Luu MD CHEMISTRY ORDERABLES Performing Organization Address City/[facility] Phon e Number [address] Intraoperative PTH ([facility]/CGP) (08/12/2019 2:57 PM EST) athologist Signature Intraoper PTH 46 9 - 77 [facility]/mL [facility] Comment: right baseline Called by: radha, Read back by: glenny lema, Date/Time:08/12/19 15:31. A 50 % decrease in venous iPTH levels at 10 min post adenoma excision is expected if all the hypersecreting parat hyroid tissue has been removed (Lee GL et al. Surgery 1993:114; 7942-7955) Specimen Anatomical Collection Method Collection Time Receive d Time (Source) Location / / Volume Laterality Blood specimen 08/12/2019 2:57 PM 020 3:04 (specimen) EST PM EST Resulting Agency Comment Spec In Lab Duyen Luu MD CHEMISTRY ORDERABLES Performing Organization Address City/[facility] Phon e Number [address] Intraoperative PTH ([facility]/CGP) (08/12/2019 2:55 PM EST) athologist Signature Intraoper PTH 71 9 - 77 [facility]/mL [facility] Comment: left baseline Called by: radha, Read back by: glenny nolasco, Date/Time:08/12/19 15:31 . A 50 % decrease in venous iPTH levels at 10 min post adenoma excision is expected if all the hypersecreting parat hyroid tissue has been removed (Lee GL et al. Surgery 1993:114; 1778-0480) Specimen Anatomical Collection Method Collection Time Receive d Time (Source) Location / / Volume Laterality Blood specimen 08/12/2019 2:55 PM 020 3:04 (specimen) EST PM EST Resulting Agency Comment Spec In Lab Duyen Luu MD CHEMISTRY ORDERABLES Performing Organization Address City/[facility]/ZIP Code Phon e Number [address] POCT Glucose (08/12/2019 1:07 PM EST) P athologist Signature POC Glucose 137 65 - 199 [facility] mg/dL [facility] Comment: Supplemental ranges: <140 mg/dL before meals <180 mg/dL all other times of the day Specimen Anatomical Collection Method Collection Time Receive d Time (Source) Location / / Volume Laterality Blood specimen 08/12/2019 1:07 PM 020 1:07 (specimen) EST PM EST Duyen Luu MD POINT OF CARE TEST ORDERABLE S Performing Organization Address City/[facility]/ZIP Code [place] [address] documented in this encounter Visit Diagnoses Diagnosis Hyperparathyroidism, primary Primary hyperparathyroidism documented in this encounter Admitting Diagnoses Diagnosis Hyperparathyroidism, [...] on Sun08/13/19 at 0900, Until Discontinued, Routine calcium citrate (Calcitrate) tablet 950 mg [...] mg 1749 (Given - Provider: Nuria [place] RN)223 (Given - Provider: Celestina Tapia RN) 0609 (Given - Provider: Celestina Tapia RN)1130 (Due) 1,000 mg, Oral, EVERY 6 HOURS, First dos e on Sun08/12/19 at 1730, Until Discontinued, Maximum dose of acetaminophen is 4000 mg from all sources in 24 hours., Routine amitriptyline (Elavil) tablet 25 mg 2302 (Given - Provider: Celestina Tapia RN - Comment: just arrived from pharmacy) 25 mg, Oral, NIGHTLY, First dose on Sun08/12/19 at 2200, Until Discontinued, Routine aspirin chewable tablet 81 mg 03 13 (Given - Provider: Agata Stevens RN) 81 [...] 2233 (Given - Provider: Celestina Tapia RN) 08 (Given - Provider: Agata bergman RN) 3.125 mg, Oral, 2 TIMES DAILY, First dos e on Sun08/12/19 at 2130, Until Discontinued, Routine cholecalciferol (Vitamin D3) (Vitamin D3) tablet 800 Units(L inked Group 1) 2232 (Given - Provider: Celestina Tapia RN) 0822 (Given - Provider: Agata Stevens, BRYAN) 800 Units, Oral, 3 TIMES DAILY, First [...] Tapia RN) 0823 (Given - Provider: Agata bergman, BRYAN) 600 mg, Oral, 3 TIMES DAILY, First [...] new insulin orders. DO NOT hold if CLINICAL PROGRAM CONSULTANT O, unless specifically told to do so. Pe r Blood Glucose Monitoring Policy, re- check a BG of > 240 in 2 hours., Routine lisinopril (Prinivil;Zestril) tablet 5 mg 0820 (Given - Provider: Agata Stevens RN) 5 [...] chloride 0.9 % (flush) flush 5 mL 0 (Not Given - Provider: Celestina Tapia RN [...] Procedure), Routine spironolactone (Aldactone) tablet 25 mg 09 (Given - Provider: Agata Stevens RN) 25 [...] at 100 mL/hr, Intravenous, CON TINUOUS, Starting Sun08/12/19 at 1315, Until Sun08/12/19 at 1919, [...] r epeat juice/soda, gel, dextrose or gluca petreson once per episode. For persistent hypoglycemia, consider longer-acting treatment for the duration of the active insulin. glucagon (human recombinant) injection SolR 1 mg(Linked Group 3) 1 mg, Intramuscular, EVERY 30 MIN PRN, S tarting e 08/12/19 at 2102, Until 08/13/19 at 1217, Low blood sugar, For BG [...] mg 1 748 (Given - Provider: Nuria [place], RN) 600 mg, Oral, EVERY 6 HOURS PRN, Startin g Sun08/12/19 at 1714, Until Sun08/13/19 at 1217, Pain, Administer orally with milk or food to minimize GI irritation. Maximum dose of 3200 mg from all sources in 24 hours, Routine labetalol (NORMODYNE,TRANDATE) injection 10-20 mg 10-20 mg, Intravenous, EVERY 4 HOURS PRN , Starting Sun08/12/19 at 2102, Until Sun08/13/19 at 1217, High Blood Pressure, Give 10 mg for SBP >160; if remains >160 after 1 hour, give 20 mg, Give if SBP greater than 160 mmHg, Routine lidocaine (XYLOCAINE) 10 mg/mL (1 %) injection 3 mg 3 mg (0.3 mL), Subcutaneous, ONCE PRN, 1 dose, Starting Sun08/12/19 at 2102, Until Sun08/13/19 at 1217, for discomfort with PIV insertion, Recovery (Recovery-Hospital Unit), Routine oxyCODONE (Roxicodone) tablet 5 mg (CANCELED) 2356 (Given - Provider: Celestina Tapia, BRYAN) 5 mg, Oral, 2 TIMES DAILY PRN, Starting Sun08/12/19 at 2334, Until Sun08/13/19 at 0548, Pain, Routine sodium chloride 0.9 % (flush) flush 5-20 mL 5-20 mL, Intravenous, EVERY 1 MIN PRN, S tarting e 08/12/19 at 2102, Until Sun08/13/19 at 1217, flush, [...] this medication record., Angio/IR (Day of Procedure), Matilda chapraro Linked Groups Order Group 1: calcium citrate [...] or Regular (not diet) soda OR If CLINICAL PROGRAM CONSULTANT O, give 15 gram glucose 40% oral [...]
Routine documented in this encounter Care Teams [place] Tier Relationship Specialty Start Date End Date Albert Zuleta MD PCP - General Family Medicine 01/17/17 10/26/21 [address] [place] [address] documented as of this encounter
--- OUTSIDE RECORDS SUMMARY | 2022-02-08 01:51 | XMS_ITS | Encounter Summary ---
:1960 Author Organization [facility] [place] [address] Care Team Providers Name Role Phone Albert Zuleta MD Primary Care Provider Encounter Details Date Type Department Care Team Description 08/13/2019 Telephone General Surgery at [facility] Tammi Correa, [place] [address] Social History Tobacco Use Types Packs/Day [...] this encounter Miscellaneous Notes Telephone Encounter - Tammi Johnson RN - 08/13/2019 12:56 PM EST I received a voice message from Blossom asking for her prescriptions for calcium and vitamin d to go to her local pharmacy in [facility]. These have been sent. Patient Name: Blossom Samayoa Patient Age: 58 y.o. Birthdate: 1960 Admit date: 08/12/2019 Discharge date: 08/13/2019 Admitting Physician: Emily Mcmahon MD ? Primary Diagnosis: Primary hyperparathyroidism ?? Secondary Diagnosis: Active Hospital Problems ?? Diagnosis ? Hyperparathyroidism, primary ? Resolved Hospital Problems No resolved problems to display. ?? Active Non-Hospital Problems ?? Diagnosis ??? Abscess ??? Shock ??? Renal [...] with BMI of 50.0-59.9, adult ??? Sarcoidosis ?? HPI: Ms. Samayoa is a 58-year-old woman [...] subtotal parathyroidectomy, and we have discussed this extensively.? Operations/Major Procedures: Operations: 08/12/2019 Surgeon(s) and Role: * Emily Mcmahon MD - Primary * Kiko Summers MD - Resident: Procedure(s):PARATHYROIDECTOMY OR EXPLORATION OF PARATHYROID(S) (WRVU 15.6) FACIAL NERVE MONITORING, SETUP LARYNGEAL (WRVU 1.57) ?? Operative Findings: enlarged left lower parathyroid. ??Left RLN signal intact. ?? Hospital Course: Blossom Samayoa was taken to the operating room where the above procedures were performed. She tolerated the operation well and without complication. She was admitted post-operatively for clinical monitoring and further management. The patient's hospital course was uncomplicated and she was deemed stable for discharge on post-operative day 1. documented in this encounter Plan of Treatment Upcoming Encounters Date Type Specialty Care Team Description 03/15/2022 Office Visit Neurology Ryann Barfield APRN [facility] [address] [place], [place] [address] 03/23/2022 Appointment Radiology Hailey Mcclendon MD [facility] [address] [place] [address] 03/23/2022 Laboratory Appointment Lab 03/23/2022 Office Visit Gastroenterology Hailey Mcclendon MD [facility] [place] [address] 05/23/2022 Procedure visit Maxillofacial Surgery Corby Montes MD [facility] [address] [place] [address] documented as of this encounter Visit Diagnoses Not on filedocumented in this encounter Care Teams Drawing Press Operator Relationship Specialty Start Date End Date Albert Zuleta MD PCP - General Family Medicine 01/17/17 10/26/21 [place] [address] documented as of this encounter
--- OUTSIDE RECORDS SUMMARY | 2022-02-08 01:51 | XMS_ITS | Encounter Summary ---
:1960 Author Organization [facility] [address] Care Team Providers Name Role Phone Albert Zuleta MD Primary Care Provider Encounter Details Date Type Department Care Team Description 08/04/2019 Telephone General Surgery at [facility] Yuni Montgomery, [place] [address] Social History Tobacco Use Types Packs/Day [...] this encounter Miscellaneous Notes Telephone Encounter - Yuni Montgomery RN - 08/04/2019 8:44 AM EST Patient is scheduled for a parathyroidectomy with Dr. Mcmahon on 08/12/2019. Dr. Mcmahon would likethe patient to hold her aspirin for 7 days before surgery. I called her to let her know that today would be her last dose and she let me know that she took her last dose on Sunday. She states that she has an appointment in gastroenterology on the day after surgery at 12:30pm and is wondering if she williams l be discharged in time for that appointment. I let her know that shouldn't be a problem. She also asked since she has an appointment after discharge, could she drive home. I let her know that it is not advised. I explained that she is going to have decreased range of motion of her neck because of thesurgery and will more than likely not be up to driving either. She is going to arrange for RTC ride but needs to give them 3 days notice about times. I encouraged her to touch base with the OR schedulers later in the week as they might have an idea on an estimation of the time. Pt verbalizes her understanding and agrees with the plan. documented in this encounter Plan of Treatment Upcoming Encounters Date Type Specialty Care Team Description 03/15/2022 Office Visit Neurology Ryann Barfield APRN [facility] [address] [place], [place] [address] 03/23/2022 Appointment Radiology Hailey Mcclendon MD [facility] [address] [place] [address] 03/23/2022 Laboratory Appointment Lab 03/23/2022 Office Visit Gastroenterology Hailey Mcclendon MD [facility] [address] [place] [address] 05/23/2022 Procedure visit Maxillofacial Surgery Corby Montes MD [facility] [address] [place], [place] [address] documented as of this encounter Visit Diagnoses Not on filedocumented in this encounter Care Teams Senior Cost Accountant Relationship Specialty Start Date End Date Albert Zuleta MD PCP - General Family Medicine 01/17/17 10/26/21 [address] [place] [address] documented as of this encounter
--- OUTSIDE RECORDS SUMMARY | 2022-02-08 01:51 | XMS_ITS | Encounter Summary ---
:1960 Author Organization [facility] [place] [address] Care Team Providers Name Role Phone Albert Zuleta MD Primary Care Provider Encounter Details Date Type Department Care Team Description 12/29/2019 Abstract Cardiology at [facility] Ida Gomez, [place] [address] Social History Tobacco Use Types Packs/Day [...] Office Visit Neurology Ryann Barfield, [facility] [address] [place], [place] [address] 03/23/2022 Appointment Radiology Hailey Mcclendon MD [facility] [address] [place] [address] 03/23/2022 Laboratory Appointment Lab 03/23/2022 Office Visit Gastroenterology Hailey Mcclendon MD [facility] [place] [address] 05/23/2022 Procedure visit Maxillofacial Surgery Corby Montes MD [facility] [place] [address] documented as of this encounter Visit Diagnoses Not on filedocumented in this encounter Care Teams Aircraft Structure Mechanic Relationship Specialty Start Date End Date Albert Zuleta MD PCP - General Family Medicine 01/17/17 10/26/21 [place] [address] documented as of this encounter
--- OUTSIDE RECORDS SUMMARY | 2022-02-08 01:51 | XMS_ITS | Encounter Summary ---
:1960 [place] [address] Care Team Providers Name Role Phone Albert [...] Expiration Date Visits Requ ested Visits Authorized [id number] 1 1 Encounter Details Date Type Department Care Team Description 08/12/2019 Anesthesia Event Main Operating Room Ted Jansen MD [facility] [place] [address] [place] [address] [phone] Anesthesia Record Procedure Summary Procedure Name Responsible Anesthesia Start Anesthesia Stop Anesthesiologist Time Time PARATHYROIDECTOMY OR Ted Colbert MD 08/12/19 1416 0 1702 EXPLORATION OF PARATHYROID(S) (WRVU 15.6) (N/A Neck) Events Date Time Event Comment 08/12/2019 1313 1416 AN Verify 1416 Start 1416 An Start Data 1419 An Induction 1422 An Intubation 1426 Anesthesia Ready 1446 Procedure Start 1451 Break/Relief In I assumed care f or [...] opportunity for questions and acknowledgement of understanding RAPHAEL Tilley 1507 Break/Relief Out 1600 Procedure Stop 1614 Extubation/LMA Out 1702 an stop data 1702 Recovery or ICU Handoff Patient care was transferred to the destination unit staff after review of the patient's medica l history, current anesthetic/surgi beverley status and plan, according to the Provider Handoff Checklist. 1702 Stop Name Total Midazolam 2 mg fentaNYL 100 mcg IV Lidocaine 60 mg Propofol 200 mg PHENYLephrine 400 mcg ePHEDrine 10 mg Ondansetron 4 mg clindamycin (CLEOCIN) 1,200 mg in dextrose 5% 108 mL i nfusion 1,200 mg Succinylcholine 100 mg PHENYLephrine INF 1,310 mcg Propofol INF 276.15 mg lactated ringers infusion 500 mL Agents Name O2 Air N2O Sevoflurane (et) Blood No blood administrations on file. Lines, Drains, and Airways Type Details Placement Removal Incision 07/01/19; 0911; upper 07/01/19 0911 by Lul, katrina; non-laparascopic Avani Zhou RN puncture; U/S guided liver biopsy Incision 08/12/19; 1446; neck 08/12/19 1446 by Naomi Ahn RN PIV 08/12/19; 1305; cephalic 08/12/19 1305 by Lynn , 08/13/19 1056 by vein (lateral side of arm), BRYAN Townsend Sierra D left; [id number] catheter system; 20 gauge, 1 in length; BRYAN Miranda ; distraction, tolerated well, appears comfortable, intradermal injection; 08/13/19; 1056 ETT Mask Ventilation: Easy (1); 08/12/19 1422 by 1614 by ETT Type: NIM; ETT Size: 7 Paulino Garcia, Paulino Garcia mm; Mac Blade: 3; Notes: MD Miller MD Asleep, Pre-O2, Stylette; Attempts: 1; Laryngoscopy Grade: 1; ETT Placement Verified By: Auscultation, Capnometry, Visual; Secured at Teeth: 22 cm; Inserted by: Jose RUIZ documented in this encounter Social History Tobacco [...] encounter OR Notes Anesthesia Postprocedure Evaluation - Paulino Garcia MD - 08/12/2019 5:02 PM EST Department of Anesthesiology Post-procedure Note Patient: Blossom Samayoa Procedure Summary Date: 08/12/19 Room / Location: [address] MAIN OR Anesthesia Start: 1415 Anesthesia Stop: 1701 Procedures: PARATHYROIDECTOMY OR EXPLORATION OF PARATHYROID(S) (WRVU 15.6) (N/A Neck) FACIAL NERVE MONITORING, SETUP LARYNGEAL (WRVU 1.57) (N/A Neck) Diagnosis: (HYPERPARATHYROIDISM) Surgeon: Emily Mcmahon MD Responsible Provider: Ted Colbert MD Anesthesia Type: general ASA Status: 3 All Anesthesia Providers: Anesthesiologist: Ted Colbert MD School Aide: Paulino Garcia MD Vitals Value Taken Time BP 137/71 08/12/2019 5:00 PM Temp Pulse 84 08/12/2019 5:01 PM Resp 16 08/12/2019 5:01 PM SpO2 95 % 08/12/2019 5:01 PM Pain Level Vitals shown include unvalidated device data. [facility] Level of Consciousness: Conscious but Sleepy Pain Management: Satisfactory Analgesia PONV: None Cardiovascular Status: At Baseline and Hemodynamically Stable Respiratory Status: Stable Respiratory Status and Supplemental O2 (NC or FM) Postoperative Fluid Status: Intravascular EUvolemia Possible Anesthetic Complications: NONE apparent at time of evaluation Final Primary Anesthesia Type: General (The anesthetic type performed was the same as planned.) Comments: Anesthesia Preprocedure Evaluation - Ted Colbert MD - 08/11/2019 4:09 PM EST Pre-Anesthesia Evaluation for: Blossom Samayoa a 58 y.o. female. Procedure(s): PARATHYROIDECTOMY OR EXPLORATION OF PARATHYROID(S) (WRVU 15.6) FACIAL NERVE MONITORING, SETUP LARYNGEAL (WRVU 1.57) Patient Active Problem List Diagnosis ??? Abscess ??? Shock ??? Renal [...] with BMI of 50.0-59.9, adult ??? Sarcoidosis Past Medical History: Diagnosis Date ??? Asthma ??? Bowel disease IBS ??? CHF (congestive heart failure) diag 2016 [facility] ??? Chronic lung disease sarcoidosis ??? [...] failure 'don't know if it's failure ??? alf current use of opiate analgesic PCP ??? Mental health problem ??? Obstructive sleep apnea diag 2007 ??? Osteoma of ear canal ??? Vertigo balance prob,last fall early Jun. Past Surgical History: Procedure Laterality Date ??? IR ALL DRAINAGE PROCEDURES 02/20/2019 IR All Drainage Procedures 02/20/2019 Corby Flor MD [facility] INTERVENTIONL RAD ??? IR BIOPSY LIVER PERCUTANEOUS 07/01/2019 IR Biopsy Liver Percutaneous 07/01/2019 Corby Flor MD [facility] INTERVENTIONL RAD ??? IR DRAIN CHECK/CHANGE/REMOVE 03/07/2019 IR Drain Check/Change/Remove 03/07/2019 Albert Mendez MD [facility] INTERVENTIONL RAD ??? PRG ECHOENCEPHALOGRAPH REAL TIME Left 11/07/2018 ULTRASOUND USE (WRVU 0.63) performed by Crow Galvin Jr., MD at [facility] OR ??? PRG FLUOROSCOPY EXAM UP TO 1 HR Y OR OT HLTH CARE PROV N/A 09/26/2018 FLUOROSCOPY (WRVU 0.17) performed by Crow Galvin Jr., MD at [facility] OR ??? PRG FLUOROSCOPY EXAM UP TO 1 [facility] PROV N/A 11/07/2018 FLUOROSCOPY (WRVU 0.17) performed by Crow Galvin Jr., MD at [facility] OR ??? PRG US GUIDE INTRAOP Right 09/26/2018 ULTRASONIC GUIDANCE, INTRAOP (WRVU 1.2) performed by Crow Galvin Jr., MD at [facility] OR ??? PRO COLONOSCOPY, REMV LESN, SNARE N/A 03/26/2019 COLONOSCOPY, POLYPECTOMY, REMOVAL LESION BY SNARE (WRVU 4.67) performed by Abhinav Stacy MD at [facility] ENDOSCOPY ? ? PRO CYSTO W URETEROSCOPY &/OR PYELOSCOPY, DX Right 09/26/2018 CYSTOURETEROSCOPY, DIAGNOSTIC (WRVU 5.75) performed by Crow Galvin Jr., MD at [facility] OR ? ? PRO CYSTO W URETEROSCOPY &/OR PYELOSCOPY, DX Left 11/07/2018 CYSTOURETEROSCOPY, DIAGNOSTIC (WRVU 5.75) performed by Crow Galvin Jr., MD at [facility] OR ??? PRO CYSTOSCOPY, INSERT URETERAL STENT Right 07/10/2018 CYSTO, STENT PLACEMENT (WRVU 2.82) performed by Viky Sears MD at [facility] OR ??? PRO CYSTOSCOPY, REMV CALCULUS, COMPLIC Right 09/26/2018 CYSTO, REMOVAL OF STENT, FOREIGN BODY, CALCULUS, COMPLICATED (WRVU 5.2) performed by Crow Galvin MD at [facility] OR ??? PRO CYSTOURETHROSCOPY, URETER CATHETER Right 07/10/2018 CYSTO, RETROGRADE, URETEROPYELOGRAPHY (WRVU 2.37) performed by Viky Sears MD at [facility] OR ??? PRO CYSTOURETHROSCOPY, URETER CATHETER Right 09/26/2018 CYSTO, RETROGRADE, URETEROPYELOGRAPHY, W/PCNL (WRVU 2.37) performed by Crow Galvin Jr., MD at [facility] OR ??? PRO EXPLORATORY OF ABDOMEN N/A 01/05/2019 @EXPLORATORY LAPAROTOMY, WITH/WITHOUT BIOPSY(S) (WRVU 12.54) performed by Ace Henry MD at [facility] OR ??? PRO EXPLORATORY OF ABDOMEN N/A 01/07/2019 @EXPLORATORY LAPAROTOMY, WITH/WITHOUT BIOPSY(S) (WRVU 12.54) performed by Ace Henry MD at [facility] OR ??? PRO FREEING BOWEL ADHESION, ENTEROLYSIS N/A 01/05/2019 @LYSIS OF ADHESIONS, ABD. (WRVU 18.46) performed by Ace Henry MD at [facility] OR ? ? PRO PERCUTANEOUS NEPHROSTOLITHOTOMY/PYELOSTOLITHOTOMY > 2 CM Right 09/26/2018 NEPHROLITHOTOMY, (PCNL) PERCUTANEOUS, OVER 2CM (WRVU 23.5) performed by Crow Galvin Jr., MD at [facility] OR ? ? PRO PERCUTANEOUS NEPHROSTOLITHOTOMY/PYELOSTOLITHOTOMY > 2 CM Left 11/07/2018 NEPHROLITHOTOMY, (PCNL) PERCUTANEOUS, OVER 2CM (WRVU 23.5) performed by Crow Galvin Jr., MD at [facility] OR ? ? PRO PLMT NEPHROSTOMY CATH PRQ NEW ACCESS RS&I Right 09/26/2018 NEPHROSTOMY CATHETER, PERC, INC DX NEPHROSTOGRAM/URETEROGRAM, IMG GUIDANCE (WRVU 4.25) performed byCrow Galvin Jr., MD at [facility] MAIN OR ? ? PRO PLMT NEPHROSTOMY CATH PRQ NEW ACCESS RS&I Left 11/07/2018 NEPHROSTOMY CATHETER, PERC, INC DX NEPHROSTOGRAM/URETEROGRAM, IMG GUIDANCE (WRVU 4.25) performed byCrow Galvin Jr., MD at [facility] MAIN OR ??? PRO RENAL ENDOSCOPY, TREATMENT Left 11/07/2018 RENAL ENDOSCOPY W\FULG, W\WO\BX, VIA NEPHROSTOMY (WRVU 6.61) performed by Crow Galvin Jr., MD [facility] MAIN OR ??? PRO RESECT SMALL INTEST, SINGL RESEC/ANAS N/A 01/07/2019 @BOWEL RESECTION, SMALL INTESTINE SINGLE ANASTOMOSIS (WRVU 20.82) performed by Ace Henry MD at [facility] MAIN OR Social History Tobacco Use ??? Smoking status: Former Smoker Packs/day: 1.00 Years: 30.00 Pack years: 30.00 Types: Cigarettes Last attempt to quit: 07/23/2016 Years since quittin.0 ??? Smokeless tobacco: Never Used Substance Use Topics ??? Alcohol use: No Frequency: Never Comment: 3 X a year Social History Substance and Sexual Activity Drug Use Yes ??? Frequency: 14.0 times per week ??? Types: Marijuana, Pain Pills Comment: vicodin Allergies Allergen Reactions ??? Ketamine Other (See Comments) Hallucinations ??? Anafranil [Clomipramine] Other (See Comments) give me the flu ??? Augmentin [Amoxicillin-Pot Clavulanate] Hives and Itching ??? Erythromycin Hives and Itching ??? Macrobid [Nitrofurantoin Monohyd/M-Cryst] Other (See Comments) Causes depression ??? Sulfa (Sulfonamide Antibiotics) Hives Medications: MAR and/or home medications have been reviewed. Physical Exam: There were no vitals filed for this visit. There is no height or weight on file to calculate BMI. Airway Assessment: Mallampati: II TM distance: >3 FB Neck ROM: full Intubated with 7.5 ETT Cardiovascular Assessment: Rhythm: regular Rate: abnormal cardiovascular exam normal Pulmonary Assessment: pulmonary exam normal Dental Assessment: - normal exam Misc Assessment: Patient is wearing No contact(s). IV access: Peripheral line Anesthesia Plan: ASA 3 general, with a(n) intravenous induction 58 yo woman for parathyroidectomy Chart and labs reviewed; patient seen and [...] to on 01/05/2019 as a transfer from [facility] with acute hypoxic respiratory failure and shock [...] Anesthetic plan and risks discussed with patient. Use of blood products discussed with patient who consented to blood products. Plan discussed with resident. PAT Clinic Note documented in this encounter Plan of Treatment Upcoming Encounters Date Type Specialty Care Team Description 03/15/2022 Office Visit Neurology Ryann Barfield APRN [facility] [address] [place] [address] 03/23/2022 Appointment Radiology Hailey Mcclendon MD [facility] [place] [address] 03/23/2022 Laboratory Appointment Lab 03/23/2022 Office Visit Gastroenterology Hailey Mcclendon MD [facility] [address] [place], [place] [address] 05/23/2022 Procedure visit Maxillofacial Surgery Corby Montes MD [facility] [place] [address] documented as of this encounter Visit Diagnoses Not on filedocumented in this encounter Administered Medications Inactive Administered Medications - up to 3 most recent administrations Medication Order MAR Action Action Date Dose Rate Site clindamycin (CLEOCIN) 1,200 mg New Bag 08/12/2019 2:33 PM EST 1,20 0 mg in dextrose 5% 108 mL infusion 1,200 mg, Intravenous, EVERY 6 HOURS, 1 dose, First dose on Sun08/12/19 at 1330, Administer over 60 Minutes, Do not exceed 30 mg/minute., Intra-Operative (Intra-Procedure), Indication for (Active or Suspected): Prophylaxis ePHEDrine 5 mg/mL multi-dose injection Given 08/12/2019 2:38 PM EST 5 mg PRN, Starting on Sun08/12/19 at 1430, Until Sun08/12/19 at 1702, Anesthesia Intra-op, Routine Given 08/12/2019 2:30 PM EST 5 mg fentaNYL 50 mcg/mL multi-dose injection Given 08/12/2019 2:20 PM EST 100 mcg PRN, Starting on Sun08/12/19 at 1420, Until Sun08/12/19 at 1702, Anesthesia Intra-op, Routine lidocaine (PF) (XYLOCAINE) 100 mg/5 mL (2 %) Given 0 2:19 PM EST 60 mg injection PRN, Starting on Sun08/12/19 at 1419, Until Sun08/12/19 at 1702, Anesthesia Intra-op, Routine midazolam (PF) (VERSED) multi-dose injec tion Given 08/12/2019 2:19 PM EST 1 mg PRN, Starting on Sun08/12/19 at 1419, Until Sun08/12/19 at 1702, Anesthesia Intra-op, Routine Given 08/12/2019 2:13 PM EST 1 mg ondansetron (ZOFRAN) injection Given 08/12/2019 3:47 PM EST 4 mg PRN, Starting on Sun08/12/19 at 1547, Until Sun08/12/19 at 1702, Anesthesia Intra-op, Routine PHENYLephrine Rate/Dose Change 08/12/2019 3:43 PM 20 mcg/min 15 mL/hr (JOCELYN-SYNEPHRINE) 20 mg in EST sodium chloride 250 mL (standard ADULT & Pedi greater than 20kg) infusion CONTINUOUS PRN, Starting on Sun08/12/19 at 1438, Until Sun08/12/19 at 1702, Anesthesia Intra-op, Routine Rate/Dose Change 08/12/2019 3:38 PM EST 40 mcg/min 30 mL/hr Rate/Dose Change 08/12/2019 3:19 PM EST 20 mcg/min 15 mL/hr PHENYLephrine in NS (PF) (JOCELYN-SYNEPHRINE) 0.8 Given 3:38 PM EST 80 mcg mg/10 mL (80 mcg/mL) multi-dose injection Syrg PRN, Starting on Sun08/12/19 at 1430, Until Sun08/12/19 at 1702, Anesthesia Intra-op, Routine Given 08/12/2019 2:38 PM EST 160 mcg Given 08/12/2019 2:30 PM EST 160 mcg propofol (DIPRIVAN) 10 mg/mL bolus injection Given 2:19 PM EST 200 mg (Anesthesia) PRN, Starting on Sun08/12/19 at 1419, Until Sun08/12/19 at 1702, Anesthesia Intra-op propofol (DIPRIVAN) infusion New Bag 08/12/2019 2:50 PM 30 mcg/kg/min 23.7 mL/hr CONTINUOUS PRN, Starting on EST Sun08/12/19 at 1450, Until Sun08/12/19 at 1702, Anesthesia Intra-op, Routine succinylcholine chloride (Quelicin) inje ction Given 08/12/2019 2:19 PM EST 100 mg PRN, Starting on Sun08/12/19 at 1419, Until Sun08/12/19 at 1702, Anesthesia Intra-op, Routine documented in this encounter Care Teams Engineering Recruiter Relationship Specialty Start Date End Date Albert Zuleta MD PCP - General Family Medicine 01/17/17 10/26/21 [address] [place] [address] documented as of this encounter
--- OUTSIDE RECORDS SUMMARY | 2022-02-08 01:51 | XMS_ITS | Encounter Summary ---
:1960 Author Organization [facility] [place] [address] Care Team Providers Name Role Phone Albert Zuleta MD Primary Care Provider Encounter Details Date Type Department Care Team Description 09/25/2019 Laboratory Appointment Lab 3L [facility] Hypercalcemia; [facility] Sarcoidosis of lung; [facility] Hepatic c irrhosis, unspecified hepatic cirrhosis type, unspecified whether ascites present; [facility] Hyperparathyroidism, [place] [id number] Social History Tobacco Use Types Packs/Day Years [...] 03/15/2022 Office Visit Neurology Ryann Barfield, [facility] [address] [place], [place] [address] 03/23/2022 Appointment Radiology Hailey Mcclendon MD [facility] [place] [address] 03/23/2022 Laboratory Appointment Lab 03/23/2022 Office Visit Gastroenterology Hailey Mcclendon MD [facility] Dr [place] [address] 05/23/2022 Procedure visit Maxillofacial Surgery Corby Montes MD [facility] [place] [address] documented as of this encounter Procedures Procedure Name Priority Date/Time Associated Diagnosis Comme nts HC PARATHYROID Routine 09/25/2019 10:07 Hypercalcemia Results for this HORMONE(PTH INTACT AM EST procedure are in the results section. HEMOGRAM Routine 09/25/2019 10:07 Hypercalcemia Results fo r this AM EST procedure are i n the results section. DIFFERENTIAL, Routine 09/25/2019 10:07 Hypercalcemia Results f or this AUTOMATED AM EST procedure are i n the results section. HC ALPHA FETOPROTEIN Routine 09/25/2019 10:07 Hepatic cirrhosi s, Results for this TUMOR MARKER AM EST unspecified hepatic procedur e are in cirrhosis type, the results unspecified whether section. ascites present HC PCH 1,25 DI-OH Routine 09/25/2019 10:07 Sarcoidosis o f lung Results for this VIT. AM EST Hypercalcemia procedure are in the results section. HC VITAMIN D TOTAL-25 Routine 09/25/2019 10:07 Hypercalcemia R esults for this HYDROXY AM EST procedure are i n the results section. HC PROTHROMBIN TIME Routine 09/25/2019 10:07 Hepatic cirrhosis , Results for this AM EST unspecified hepatic procedur e are in cirrhosis type, the results unspecified whether section. ascites present HC CBC,PLT & AUTO Routine 09/25/2019 10:07 Hypercalcemia DIFF AM EST HC PHOSPHORUS, SERUM Routine 09/25/2019 10:07 Hypercalcemia Re sults for this AM EST procedure are i n the results section. COMPREHENSIVE Routine 09/25/2019 10:07 Hepatic cirrhosis, Resu lts for this METABOLIC PANEL AM EST unspecified hepatic proce dure are in (NON-FASTING) cirrhosis type, the results unspecified whether section. ascites present documented in this encounter Results (ABNORMAL) Differential, Automated (09/25/2019 10:07 AM EST) [facility] gist Method Time Signature Neutrophils % 55.2 % [facility] Neutr Abs (ANC) 5.40 1.70 - [facility] 6.10 [facility] x10(3)/[facility] LABORATORY Lymphocytes % 37.0 % [facility] Lymphocytes Abs 3.6 (H) 0.9 - 3.2 [facility] x10(3)/[facility] LABORATORY Monocytes % 5.6 % [facility] Monocyte Abs 0.6 0.3 - 0.9 [facility] x10(3)/[facility] LABORATORY Eosinophils % 1.5 % [facility] Eosinophils Abs 0.2 0.0 - 0.4 [facility] x10(3)/[facility] LABORATORY Basophils % 0.4 % [facility] Basophils Abs 0.0 0.0 - 0.1 [facility] x10(3)/[facility] LABORATORY Immature Gran % 0.30 % [facility] Comment: Immature granulocytes(IG's)percentage an d absolute count will include metamyelocytes, myelocytes, and promyelo cytes. Blood smears from CBCs yielding IG's will be scanned manually for concor dance. If this scan disagrees with the automated IG or if promyelocytes are not ed, a manual differential will be performed. Irina Gran Abs 0.03 0.00 - 0.04 x10(3)/[facility] LABORATORY Specimen Anatomical Collection Method Collection Time Receive d Time (Source) Location / / Volume Laterality Blood specimen 09/25/2019 10:07 0 (specimen) AM EST 10:25 AM EST Resulting Agency Comment Spec In Lab Alexandru Akers MD HEMATOLOGY ORDERABLES Performing Organization Address City/State/[place] [address] (ABNORMAL) Hemogram (09/25/2019 10:07 AM EST) Analysis Performed At Patho logist Time Signature WBC 9.8 (H) 4.0 - 9.5 [facility] x10(3)/[facility] LABORATORY RBC 3.94 (L) 4.00 - [place] 5.21 [facility] x10(6)/[facility] LABORATORY Hemoglobin 12.3 11.7 - [place] 15.5 gm/dL [facility] Hematocrit 37.3 35.7 - [place] 45.8 % [facility] MCV 94.7 (H) 82.6 - [facility] 94.4 [facility] LABORATORY MCH 31.2 27.1 - [place] 32.0 pg [facility] MCHC 33.0 31.7 - [place] 35.0 gm/dL [facility] Platelets 204 145 - 357 [facility] x10(3)/[facility] LABORATORY RDWSD 42.4 37.0 - [facility] 46.0 [facility] LABORATORY RDWCV 12.2 11.5 - [facility] [place] 14.1 % [facility] MPV 10.3 7.6 - 12.9 [facility] LABORATORY nRBC % Auto 0.0 % [facility] nRBC Abs Auto 0.000 0.000 - [place] 0.000 [facility] x10(3)/[facility] LABORATORY Specimen Anatomical Collection Method Collection Time Receive d Time (Source) Location / / Volume Laterality Blood specimen 09/25/2019 10:07 0 (specimen) AM EST 10:25 AM EST Resulting Agency Comment Spec In Lab Alexandru Akers MD HEMATOLOGY ORDERABLES Performing Organization Address City/State/[place] [address] (ABNORMAL) Comprehensive metabolic panel (non-fasting) (09/25/2019 10:07 AM EST) P athologist Signature Glucose Lvl 262 (H) 65 - 199 [facility] mg/dL [facility] Comment: Diabetes: >=200 mg/dL plus symp toms BUN 14 8 - 18 mg/dL [facility] Creatinine 0.72 0.70 - 1.20 mg/dL [facility] Sodium 139 135 - 145 mmol/L [facility] Potassium 4.4 3.5 - 5.0 mmol/L [facility] Comment: Please note: ??Patients with WBC >100,00 0 may have falsely elevated Potassium levels. ??For accurate Potassium quantif ication in these patients send serum separator tube (gold top) for subsequent determinations. ??Contact the Clinical Chemistry Laboratory if there are any qu estions. Chloride 101 98 - 107 mmol/L [facility] CO2 21 (L) 22 - 31 mmol/L [facility] Anion Gap 17 (H) 5 - 15 mmol/L [facility] Calcium 10.1 8.5 - 10.5 mg/dL [facility] Total Protein 7.9 6.1 - 8.0 gm/dL [facility]OR[facility] Albumin 4.7 3.2 - 5.2 gm/dL [facility] AST 42 (H) 0 - 30 unit/L [facility] ALT 38 (H) 0 - 30 unit/L [facility] Alk Phos 100 35 - 105 unit/L [facility] Total Bilirubin 0.9 0.2 - 1.3 mg/dL [facility] Estimated GFR 92 >=60 mL/min/1.73 m?? [facility] Comment: The eGFR was calculated using the CKD-EP I equation. As with all creatinine based estimates of kidney function, eGFR values calculated with the CKD-EPI equation are not accurate in patients wi th acute kidney failure, extremes of body mass or the acutely ill. http://[employer]/[facility] eGFR 106 >=60 mL/min/1.73 m?? [facility] Comment: The eGFR was calculated using the CKD-EP I equation. As with all creatinine based estimates of kidney function, eGFR values calculated with the CKD-EPI equation are not accurate in patients wi th acute kidney failure, extremes of body mass or the acutely ill. http://[employer]/[facility] Specimen Anatomical Collection Method Collection Time Receive d Time (Source) Location / / Volume Laterality Blood specimen 09/25/2019 10:07 0 (specimen) AM EST 10:25 AM EST Resulting Agency Comment Spec In Lab Vivienne A Freddy [place] CHEMISTRY ORDERABLES Performing Organization Address City/[facility]/[place] [address] (ABNORMAL) Prothrombin Time (09/25/2019 10:07 AM EST) P athologist Signature PT 12.8 (H) 9.4 - 12.5 [facility] LABORATORY INR 1.1 [facility] Comment: An INR <2.0 indicates [...] EST Resulting Agency Comment Spec In Lab Vivienne Hermilo Freddy [place] HEMATOLOGY ORDERABLES Performing Organization Address City/[facility]/[place] [address] AFP tumor marker (09/25/2019 10:07 AM EST) P athologist Signature AFP <1.9 <=8.3 ng/mL [facility] Specimen Anatomical Collection Method Collection Time Receive d Time (Source) Location / / Volume Laterality Blood specimen 09/25/2019 10:07 0 (specimen) AM EST 10:49 AM EST Resulting Agency Comment Spec In Lab Vivienne Hermilo Freddy [place] CHEMISTRY ORDERABLES Performing Organization Address City/[facility]/[place] [address] Phosphorus (09/25/2019 10:07 AM EST) athologist Signature Phosphorus 3.7 2.5 - 4.5 [place] mg/dL [facility] Specimen Anatomical Collection Method Collection Time Receive d Time (Source) Location / / Volume Laterality Blood specimen 09/25/2019 10:07 0 (specimen) AM EST 10:25 AM EST Resulting Agency Comment Spec In Lab Alexandru Akers MD CHEMISTRY ORDERABLES Performing Organization Address City/State/ZIP Code Phon e Number [address] 1,25-dihydroxycholecalciferol (09/25/2019 10:07 AM EST) athologist Signature Vit D 1,25 37 18 - 78 [place] pg/mL [facility] Comment: ADDITIONAL INFORMATIO N This test was developed and its performa nce characteristics determined by [facility] in a manner co nsistent with CLIA requirements. This test has not been davis ared or approved by the U.S. Food and Drug Administration. Test Performed by: [facility] [address] [place] [address] Loop Drier Operator: Jose Maria Good M.D. Ph. D.; CLIA# [id number] Specimen Anatomical Collection Method Collection Time Receive d Time (Source) Location / / Volume Laterality Blood specimen 09/25/2019 10:07 0 1:25 (specimen) AM EST PM EST Resulting Agency Comment Spec In Lab Alexandru Akers MD CHEMISTRY ORDERABLES Performing Organization Address City/State/ZIP Code Phon e Number [address] (ABNORMAL) PTH (09/25/2019 10:07 AM EST) athologist Signature PTH 11 (L) 15 - 65 [place] pg/mL [facility] Specimen Anatomical Collection Method Collection Time Receive d Time (Source) Location / / Volume Laterality Blood specimen 09/25/2019 10:07 0 (specimen) AM EST 10:25 AM EST Resulting Agency Comment Spec In Lab Emily Mcmahon MD CHEMISTRY ORDERABLES Performing Organization Address City/State/ZIP Code Phon e Number [address] (ABNORMAL) Vitamin D, 25-Hydroxy (09/25/2019 10:07 AM EST) P athologist Signature 25-OH Vit D 24 (L) 30 - 100 [facility] Total ng/mL [facility] Comment: As of 2019, 25-hydroxyvitamin D chace ting has moved from the [email or web address] to the [employer]. No substantial change in me asured values is expected. Specimen Anatomical Collection Method Collection Time Receive d Time (Source) Location / / Volume Laterality Blood specimen 09/25/2019 10:07 0 (specimen) AM EST 10:49 AM EST Resulting Agency Comment Spec In Lab Emily Mcmahon MD CHEMISTRY ORDERABLES Performing Organization Address City/[facility]/[place] [address] documented in this encounter Visit Diagnoses Diagnosis Hypercalcemia Sarcoidosis of lung Sarcoidosis Hepatic cirrhosis, unspecified hepatic c irrhosis type, unspecified whether ascites present Hyperparathyroidism, primary Primary hyperparathyroidism documented in this encounter Care Teams Director Telehealth Relationship Specialty Start Date End Date Albert Zuleta MD PCP - General Family Medicine 01/17/17 10/26/21 [address] [place] [address] documented as of this encounter
--- OUTSIDE RECORDS SUMMARY | 2022-02-08 01:51 | XMS_ITS | Encounter Summary ---
:1960 Author Organization [facility] [place] [address] Care Team Providers Name Role Phone Albert Zuleta MD Primary Care Provider Encounter Details Date Type Department Care Team Description 07/08/2019 Telephone Gastroenterology at [facility] Hailey Mcclendon MD [facility] [place] [address] [place] [address] [phone] (Wo rk) Social History Tobacco Use Types [...] Telephone Encounter - Hailey Mcclendon MD - 07/08/2019 10:53 AM EST Reviewed liver biopsy which showed cirrhosis from ACEVEDO and sarcoidosis. Will set up follow up visit to discuss implications and perform fibroscan. documented in this encounter Plan of Treatment Upcoming Encounters Date Type Specialty Care Team Description 03/15/2022 Office Visit Neurology Ryann Barfield APRN [facility] DR [place], [place] [address] 03/23/2022 Appointment Radiology Hailey Mcclendon MD [facility] [place] [address] 03/23/2022 Laboratory Appointment Lab 03/23/2022 Office Visit Gastroenterology Hailey Mcclendon MD [facility] [address] [place] [address] 05/23/2022 Procedure visit Maxillofacial Surgery Corby Montes MD [facility] [address] [place] [address] documented as of this encounter Visit Diagnoses Not on filedocumented in this encounter Care Teams Lurer Relationship Specialty Start Date End Date Albert Zuleta MD PCP - General Family Medicine 01/17/17 10/26/21 [place] [address] documented as of this encounter
--- OUTSIDE RECORDS SUMMARY | 2022-02-08 01:51 | XMS_ITS | Encounter Summary ---
:1960 Author Organization [facility] Address [facility] [place] [address] Care Team Providers Name Role Phone Albert Zuleta MD Primary Care Provider Encounter Details Date Type Department Care Team Description 07/03/2019 Telephone Urology at [facility] Crow Galvin Jr., [place] [address] UROLOGY DEPT. [phone] [place], [place] [address] (Wo rk) Social History Tobacco [...] Notes Telephone Encounter - George Child - 07/03/2019 9:26 AM EST LMOM - November or December [facility] appt, U/S prior, review of 24 hr urine. documented in this encounter Plan of Treatment Upcoming Encounters Date Type Specialty Care Team Description 03/15/2022 Office Visit Neurology Ryann Barfield, [facility] [address] [place], [place] [address] 03/23/2022 Appointment Radiology Hailey Mcclendon MD [facility] [address] [place] [address] 03/23/2022 Laboratory Appointment Lab 03/23/2022 Office Visit Gastroenterology Hailey Mcclendon MD [facility] [address] [place] [address] 05/23/2022 Procedure visit Maxillofacial Surgery Corby Montes MD [facility] [address] [place], [place] [address] documented as of this encounter Visit Diagnoses Not on filedocumented in this encounter Care Teams Maintenance Mechanic Helper Relationship Specialty Start Date End Date Albert Zuleta MD PCP - General Family Medicine 01/17/17 10/26/21 [address] [place] [address] documented as of this encounter
--- OUTSIDE RECORDS SUMMARY | 2022-02-08 01:51 | XMS_ITS | Encounter Summary ---
:1960 Author Organization [facility] [place] [address] Care Team Providers Name Role Phone Albert Zuleta MD Primary Care Provider Reason for Visit Reason Onset Date Comments Reminder Appointment 11/20/2019 Encounter Details Date Type Department Care Team Description 11/20/2019 Telephone Gastroenterology at [facility] Hailey Castano, Reminder Appointment [facility] [place] [address] GASTROENTEROLOG [phone] Y DEPT Social History Tobacco Use Types Packs/Day Years [...] Telephone Encounter - Hailey Castano CMA - 11/20/2019 9:09 AM EDT Called patient to review medications and allergies for their upcoming gastroenterology Type of Appointment: Phone appointment. Reach Patient during MA Check: Yes Notes for the provider: Notes for the nurse: documented in this encounter Plan of Treatment Upcoming Encounters Date Type Specialty Care Team Description 03/15/2022 Office Visit Neurology Ryann Barfield APRN [facility] [address] [place], [place] [address] 03/23/2022 Appointment Radiology Hailey Mcclendon MD [facility] [address] [place] [address] 03/23/2022 Laboratory Appointment Lab 03/23/2022 Office Visit Gastroenterology Hailey Mcclendon MD [facility] [address] [place] [address] 05/23/2022 Procedure visit Maxillofacial Surgery Corby Montes MD [facility] [address] [place] [address] documented as of this encounter Visit Diagnoses Not on filedocumented in this encounter Care Teams Charge Hand Relationship Specialty Start Date End Date Albert Zuleta MD PCP - General Family Medicine 01/17/17 10/26/21 [place] [address] documented as of this encounter
--- OUTSIDE RECORDS SUMMARY | 2022-02-08 01:51 | XMS_ITS | Encounter Summary ---
:1960 Author Organization [facility] [place] [address] Care Team Providers Name Role Phone Albert Zuleta MD Primary Care Provider Encounter Details Date Type Department Care Team Description 08/13/2019 Telephone Gastroenterology at [facility] [place] [address] Social History Tobacco Use Types Packs/Day [...] this encounter Miscellaneous Notes Telephone Encounter - Jenny Bernal - 08/13/2019 1:13 PM EST Endoscopy Checklist- EGD with Dr. Hailey Mcclendon MD Ordered by:JETT Lee 08/13/2019 Indication:varices surveillance problems w/procedure in past?no Type of sedation:anesthesia consult per Vivienne Hayes APRN Blood Thinners?:no Pacemaker/Defibrillator?:no Diabetes?:yes, on Metformin & Trulicity Allergies?:yes, in chart Supplemental Iron?:no Hx of 3 or more abdominal surgeries?:yes Problems with sedation or anesthesia?:yes, does not do well with Fentanyl or Ketamine c-pap or O2 at home?:c-pap Narcotic strength pain meds?:yes, Hydrocodone and Oxycodone prn Current medical conditions (especially heart or lung)?:congestive heart failure,cardiomyopathy,damaged left ventricle BMI 46.63 Ht: 5'6.5 Weight 288 lb 14.4 oz documented in this encounter Plan of Treatment Upcoming Encounters Date Type Specialty Care Team Description 03/15/2022 Office Visit Neurology Ryann Barfield APRN [facility] [address] [place], [place] [address] 03/23/2022 Appointment Radiology Hailey Mcclendon MD [facility] [address] [place] [address] 03/23/2022 Laboratory Appointment Lab 03/23/2022 Office Visit Gastroenterology Hailey Mcclendon MD [facility] [address] [place] [address] 05/23/2022 Procedure visit Maxillofacial Surgery Corby Montes MD [facility] [place], [place] [address] documented as of this encounter Visit Diagnoses Not on filedocumented in this encounter Care Teams Manager Hydraulic Relationship Specialty Start Date End Date Albert Zuleta MD PCP - General Family Medicine 01/17/17 10/26/21 [place] [address] documented as of this encounter
--- OUTSIDE RECORDS SUMMARY | 2022-02-08 01:52 | XMS_ITS | Encounter Summary ---
:1960 Author Organization [place] [address] Care Team Providers Name Role Phone Albert Zuleta MD Primary Care Provider Encounter Details Date Type Department Care Team Description 02/21/2019 Telephone General Surgery at [facility] Kiko Summers MD [facility] [address] GENERAL SURGERY [phone] [place], [place] [address] (Wo rk) Social History Tobacco [...] this encounter Miscellaneous Notes Telephone Encounter - Kiko Summers MD - 02/21/2019 9:16 PM EDT I called the patient at 9:16 PM. Blossom Samayoa is a 58 y.o. female who was discharged today following admission and IR drain placement into abscess at [facility] drain site. Prior ex lap with bowel resection for incarcerated ventral hernia in December with Dr. Henry. I was able to reach her after a second call. She reports she is calling just to report what she thinks is an increase in the size of the abscess while laying in bed. She has not had any fevers, chills,drainage, or increase in pain. She is not concerned but just wanted to notify someone. I do not think she needs to be evaluated at this time, which she is in agreement with. She will continue to monitor it and if it gets worse will go to her local ED or come to [facility] for evaluation. This note will be routed to the provider mentioned above. Kiko Summers MD documented in this encounter Plan of Treatment Upcoming Encounters Date Type Specialty Care Team Description 03/15/2022 Office Visit Neurology Ryann Barfield, [facility] [address] [place] [address] 03/23/2022 Appointment Radiology Hailey Mcclendon MD [facility] [place] [address] 03/23/2022 Laboratory Appointment Lab 03/23/2022 Office Visit Gastroenterology Hailey Mcclendon MD [facility] [place] [address] 05/23/2022 Procedure visit Maxillofacial Surgery Corby Montes MD [facility] [place] [address] documented as of this encounter Visit Diagnoses Not on filedocumented in this encounter Care Teams Food Processing Plant Manager Relationship Specialty Start Date End Date Albert Zuleta MD PCP - General Family Medicine 01/17/17 10/26/21 [address] [place] [address] documented as of this encounter
--- OUTSIDE RECORDS SUMMARY | 2022-02-08 01:52 | XMS_ITS | Encounter Summary ---
:1960 Author Organization [facility] [place] [address] Care Team Providers Name Role Phone Albert Zuleta MD Primary Care Provider Reason for Referral Diagnostic Test (Routine) - Closed Specialty Diagnoses / Procedures Referred By Contact Refer red To Contact Radiology Diagnoses Postop check Ace Henry MD [facility] Rad Ct Scan Procedures CT Abdomen & [place] [address] [place] [address] Referral ID Status Reason Start Date Expiration Date Visits V isits Requested Authorized [id number] Closed Specialty 03/07/2019 03/06/2020 1 1 Service Requested Reason for Visit Diagnostic Test (Routine) - Closed Specialty Diagnoses / Procedures Referred By Contact Refer red To Contact Radiology Diagnoses Postop check Ace Henry MD [facility] Rad Ct Scan Procedures CT Abdomen & [place] [address] [place] [address] Referral ID Status Reason Start Date Expiration Date Visits V isits Requested Authorized [id number] Closed Specialty 03/07/2019 03/06/2020 1 1 Service Requested Encounter Details Date Type Department Care Team Description 03/28/[address] Scan at [facility] Ace Henry MD Postop check [facility] [address] [address] GENERAL SURGERY [phone] [place], [place] [address] (Wo rk) Social History Tobacco [...] 02/03/2013 mcg Capsule, the lungs. w/Inhalation Device nitroGLYcerin Place 0.4 mg under the 0 [...] 03/09/2018 (PRINIVIL;ZESTRIL) 5 mg MOUTH DAILY Tablet cholestyramine Take 1 packet by mouth 60 each 3 9 06/13/2019 (QUESTRAN) 4 gram daily. 4grams once Powder in Packet daily, then ok to increase by 4grams at weekly intervals in 1-4 divided doses. Max dose 36g/day. diphenoxylate-atropine Take 1 tablet by mouth 90 tablet 1 0 03/07/2019 06/13/2019 (LOMOTIL) 2.5-0.025 mg 4 times daily as Tablet needed for Diarrhea. amitriptyline (ELAVIL) Take 25 mg by mouth 0 09/25/2019 25 mg Tablet nightly. CANNABIDIOL, CBD, Take by mouth as 0 1 08/13/2018 EXTRACT ORAL needed. ACYCLOVIR ORAL Take by mouth as 0 05/24 needed. ibuprofen Take 800 mg by mouth 0 05/24 (ADVIL;MOTRIN) 200 mg every 6 hours as Tablet needed for Pain. lactobacillus Take 1 capsule by 0 11/2019 rhamnosus, GG, mouth daily. (CULTURELLE) 10 billion cell Capsule HYDROcodone-acetaminoph Take 1 tablet by mouth 0 12/28/2020 en (NORCO) 5-325 mg 2 times daily. Mostly Tablet takes at night for sleep acetaminophen (TYLENOL) Take 2 tablets by 30 tablet 1 07/2406/13/2019 325 mg Tablet mouth every 6 hours. levalbuterol (XOPENEX INHALE TWO PUFFS BY 3 05/0712/28/2020 HFA) 45 mcg/actuation MOUTH EVERY 4 TO 6 HFA Aerosol Inhaler HOURS NEEDED INCRUSE ELLIPTA 62.5 INHALE ONE PUFF BY 5 018 12/28/2020 mcg/actuation Disk with MOUTH EVERY DAY Device glipiZIDE-metFORMIN TAKE TWO TABLETS BY 3 018 06/20/2019 (METAGLIP) 5-500 mg MOUTH TWICE A DAY Tablet carvedilol (COREG) Take 12.5 mg by mouth 3 201711/20/2019 3.125 mg Tablet 2 times daily. documented as of this encounter Plan of Treatment Upcoming Encounters Date Type Specialty Care Team Description 03/15/2022 Office Visit Neurology Ryann Barfield, [employer] [facility] [address] [place], [place] [address] 03/23/2022 Appointment Radiology Hailey Mcclendon MD [facility] [place] [address] 03/23/2022 Laboratory Appointment Lab 03/23/2022 Office Visit Gastroenterology Hailey Mcclendon MD [facility] [place] [address] 05/23/2022 Procedure visit Maxillofacial Surgery Corby Montse MD [facility] [place] [address] documented as of this encounter Procedures Procedure Name Priority Date/Time Associated Diagnosis Comme nts CT ABDOMEN AND Routine 03/28/2019 10:34 AM Postop check Result s for this PELVIS W CONTRAST EDT procedure are in the results section. documented in this encounter Results CT Abdomen & Pelvis w Contrast (03/28/2019 10:34 AM EDT) Anatomical Region Laterality Modality Abdomen, Pelvis Computed Tomography Specimen (Source) Anatomical Location Collection Method / Collectio n Time Received Time / Laterality Volume Impressions 03/28/2019 12:50 PM EDT 1. ??Interval resolution of the fluid collection in the subcutaneous fat. There is significantly improved inflammation a round this although persistent plaque-like soft tissue which may be a c ombination of residual inflammation and fibrosis. 2. ??Stable hepatosplenomegaly. Localize d lymph node enlargement of the miguelina hepatis is likely on the basis of chroni c hepatocellular disease. Clinical correlation is needed. Thank you for letting us participate in the care of this patient. For questions regarding this report, please contact e number below. ? Narrative 03/28/2019 12:50 PM EDT EXAMINATION: ??CT ABDOMEN AND PELVIS W CONTRAST CLINICAL HISTORY: ??s/p VHR, SBR with re current soft tissue collections. ?recurrent or persistent fluid collectio n present TECHNIQUE: Helical CT of the abdomen and pelvis was performed following the intravenous administration of contrast. Administered 120.0 ml of OMNIPAQUE 350.00 mg/ml. Oral contrast was administ ered. COMPARISON: 02/19/2019 FINDINGS: Lower chest: Minimal bibasilar atelectas is. No effusions. Liver: The liver is enlarged, the right lobe measuring 23 cm and the left lobe 19 cm. Normal attenuation. Patent portal vein. No focal lesion. Bile ducts: Nondilated. Gallbladder: Surgically absent. Pancreas: Normal attenuation without alexsandra britney dilatation. Spleen: Enlarged to 15.7 cm. No focal le sions. Adrenals: Normal. Kidneys: There is a lobular appearance o f both kidneys, and there is right upper pole focal renal scarring. 2 less than 5 mm low-attenuation right renal lesions are too small to characterize but most l ikely cysts. No left renal lesions. Urinary Bladder: Decompressed. No calcul i or wall thickening. Vasculature: There is moderate calcified atherosclerosis of the infrarenal aorta without aneurysm. Lymph Nodes: There are clustered lymph n odes in the miguelina hepatis and portacaval region, the largest measuring 16 mm shor t axis; no interval change. Bowel: There is a surgical anastomosis a round a loop of mildly dilated small bowel in the anterior abdomen, and the l oop is likely dilated as result of the anastomosis. No other dilated small efren l loops. Normal caliber colon with diffuse mild fecal loading. No bowel wal l thickening. Peritoneum and mesentery: No ascites, fr ee air, or loculated fluid collection. There is trace stranding just deep to th e anterior abdominal wall in close proximity to the surgical anastomosis, w hich has improved since the prior study. Abdominal wall: There is diffuse diastas es of the rectus muscles. No focal hernia defect is visualized. The fluid c ollection previously seen in the subcutaneous fat has resolved. There is plaque-like soft tissue extending from the anterior abdominal wall to the skin at this level which may represent fibrosis. There is minimal stranding evangelist und it however overall the inflammatory changes have significantly decreased. Reproductive organs: The uterus is surgi leslie absent. Neither ovary is identified however there are no adnexal masses. Osseous structures: There is severe oste oarthritis of both hips, left greater than right, with extensive subchondral s clerosis and osteophytes. There is no suspicious lytic or sclerotic osseous le erinn. Procedure Note Rula Atkins MD - 03/28/2019Formatt ing of this note might be different from the original. EXAMINATION: CT ABDOMEN AND PELVIS W CON TRAST CLINICAL HISTORY: s/p VHR, SBR with recu rrent soft tissue collections. ?recurrent or persistent fluid collectio n present TECHNIQUE: Helical CT of the abdomen and pelvis was performed following the intravenous administration of contrast. Administered 120.0 ml of OMNIPAQUE 350.00 mg/ml. Oral contrast was administ ered. COMPARISON: 02/19/2019 FINDINGS: Lower chest: Minimal bibasilar atelectas is. No effusions. Liver: The liver is enlarged, the right lobe measuring 23 cm and the left lobe 19 cm. Normal attenuation. Patent portal vein. No focal lesion. Bile ducts: Nondilated. Gallbladder: Surgically absent. Pancreas: Normal attenuation without alexsandra britney dilatation. Spleen: Enlarged to 15.7 cm. No focal le sions. Adrenals: Normal. Kidneys: There is a lobular appearance o f both kidneys, and there is right upper pole focal renal scarring. 2 less than 5 mm low-attenuation right renal lesions are too small to characterize but most l ikely cysts. No left renal lesions. Urinary Bladder: Decompressed. No calcul i or wall thickening. Vasculature: There is moderate calcified atherosclerosis of the infrarenal aorta without aneurysm. Lymph Nodes: There are clustered lymph n odes in the miguelina hepatis and portacaval region, the largest measuring 16 mm shor t axis; no interval change. Bowel: There is a surgical anastomosis a round a loop of mildly dilated small bowel in the anterior abdomen, and the l oop is likely dilated as result of the anastomosis. No other dilated small efren l loops. Normal caliber colon with diffuse mild fecal loading. No bowel wal l thickening. Peritoneum and mesentery: No ascites, fr ee air, or loculated fluid collection. There is trace stranding just deep to th e anterior abdominal wall in close proximity to the surgical anastomosis, w hich has improved since the prior study. Abdominal wall: There is diffuse diastas es of the rectus muscles. No focal hernia defect is visualized. The fluid c ollection previously seen in the subcutaneous fat has resolved. There is plaque-like soft tissue extending from the anterior abdominal wall to the skin at this level which may represent fibrosis. There is minimal stranding evangelist und it however overall the inflammatory changes have significantly decreased. Reproductive organs: The uterus is surgi leslie absent. Neither ovary is identified however there are no adnexal masses. Osseous structures: There is severe oste oarthritis of both hips, left greater than right, with extensive subchondral s clerosis and osteophytes. There is no suspicious lytic or sclerotic osseous le erinn. IMPRESSION 1. Interval resolution of the fluid janet ection in the subcutaneous fat. There is significantly improved inflammation a round this although persistent plaque-like soft tissue which may be a c ombination of residual inflammation and fibrosis. 2. Stable hepatosplenomegaly. Localized lymph node enlargement of the miguelina hepatis is likely on the basis of chroni c hepatocellular disease. Clinical correlation is needed. Thank you for letting us participate in the care of this patient. For questions regarding this report, please contact [facility] number below. Ace Henry MD IMG CT ORDERABLES documented in this encounter Visit Diagnoses Diagnosis Postop check Follow-up examination, following unspeci fied surgery documented in this encounter Administered Medications Inactive Administered Medications - up to 3 most recent administrations Medication Order MAR Action Action Date Dose Rate Site iohexol (OMNIPAQUE) 350 mg/mL Given 03/28/2019 10:35 AM EDT 120 mLs solution 0-200 mL 0-200 mL, Intravenous, ONCE PRN, 1 dose, Starting on Sun03/28/19 at 1034, Until Sun03/28/19 at 1035, Per Protocol, Warning Vesicant/Irritant Medication , Radiology Contrast, Routine iohexol (OMNIPAQUE) 350 mg/mL solution 0-50 Given 12/2018 10:35 AM EDT 50 mLs mL 0-50 mL, Oral, ONCE PRN, 1 dose, Starting on Sun03/28/19 at 1034, Until Sun03/28/19 at 1035, Per Protocol, Warning Vesicant/Irritant Medication , Radiology Contrast, Routine documented in this encounter Care Teams Digital Media Intern Relationship Specialty Start Date End Date Albert Zuleta MD PCP - General Family Medicine 01/17/17 10/26/21 [address] [place] [address] documented as of this encounter
--- OUTSIDE RECORDS SUMMARY | 2022-02-08 01:52 | XMS_ITS | Encounter Summary ---
:1960 Author Organization [facility] [place] [address] Care Team Providers Name Role Phone Albert Zuleta MD Primary Care Provider Encounter Details Date Type Department Care Team Description 02/21/2019 Telephone [facility] Kiko Summers MD [facility] [place] [address] GENERAL SURGERY [phone] [place], [place] [address] (Wo rk) Social History Tobacco [...] Encounter - Kiko Summers MD - 02/21/2019 8:48 PM EDT I returned a call from the patient at 8:48 PM. Blossom Samayoa is a 58 y.o. female who was discharged today following admission and IR drain placement into abscess at [facility] drain site. Prior ex lap with bowel resection for incarcerated ventral hernia in December with Dr. Henry. I was unable to reach the patient, as 2 calls went directly to voicemail. This note will be routed to the provider mentioned above. Kiko Summers MD documented in this encounter Plan of Treatment Upcoming Encounters Date Type Specialty Care Team Description 03/15/2022 Office Visit Neurology Ryann Barfield, [facility] [address] [place] [address] 03/23/2022 Appointment Radiology Hailey Mcclendon MD [facility] [address] [place] [address] 03/23/2022 Laboratory Appointment Lab 03/23/2022 Office Visit Gastroenterology Hailey Mcclendon MD [facility] [address] [place] [address] 05/23/2022 Procedure visit Maxillofacial Surgery Corby Montes MD [facility] [address] [place], [place] [address] documented as of this encounter Visit Diagnoses Not on filedocumented in this encounter Care Teams Crop [employer]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
--- OUTSIDE RECORDS SUMMARY | 2022-02-08 01:52 | XMS_ITS | Encounter Summary ---
:1960 Author Organization [facility] [place] [address] Care Team Providers Name Role Phone Albert Zuleta MD Primary Care Provider Encounter Details Date Type Department Care Team Description 03/26/2019 Hospital Encounter Gastroenterology at [facility] Abhinav Stacy, [facility] [place] [address] [facility] [phone] CENTER GASTROENTEROLOGY DEPT. [place], [place] [address] Social History Tobacco Use Types [...] Sign Reading Time Taken Comments Blood Pressure 96/67 03/26/2019 10:25 AM EDT Pulse 73 03/26/2019 10:02 AM EDT Temperature 36.8 ??C (98.2 ??F) 03/26/2019 8:00 AM EDT Respiratory Rate 18 03/26/2019 10:25 AM EDT Oxygen Saturation 95% 03/26/2019 10:25 AM EDT Inhaled Oxygen Concentration - - Weight - - Height - - Body Mass Index - - documented in this encounter Discharge Instructions Discharge InstructionsMercedes Baker RN - 03/26/2019 10:34 AM EDT Colonoscopy What to expect after the procedure You may feel a little more gassy or bloated than usual. This is normal. You should expect the return of normal bowel function in the 2 to 3 days. Activity Because of the sedation that you received your judgement and reaction time are effected ?? Go home and rest quietly for the remainder of the day. You may resume your normal activities tomorrow. ?? Change from one position to the next slowly. You may lose your balance unexpectedly ?? Be careful on stairs, as you may be unsteady on your feet FOR THE NEXT 24 HRS ?? DO NOT DRIVE OR OPERATE ANY MACHINERY ?? DO NOT DRINK ALCOHOLIC BEVERAGES ?? DO NOT SIGN LEGAL DOCUMENTS ?? If you are a smoker: DO NOT SMOKE WHILE YOU ARE ALONE Diet ?? Start by eating small portions of foods that ordinarily will not upset your stomach . Avoid gas producing foods for the next few days ?? Be gentle with what you choose to start with ?? Drink plenty of fluids ( unless your doctor has told you not to). IV SITE-- slight redness, or tenderness is normal. You can use warm compresses if you become concerned. If the tenderness +/or redness increases or foul drainage and a red streak occurs, please contact your PCP immediately When shoud you call for help? Call 911 anytime you think you may need emergency care. For example If you pass out ( loss of consciousness) If you pass maroon or bloody stools If you have severe belly pain Call your doctor now or seek immediate medical care If your stools are black and tarlike If your stools have streaks of blood, but you did not have a biopsy or any polyps removed If you have belly pain, or your belly is swollen and firm If you vomit If you have a fever If you are very dizzy Watch closely for changes in your health, and be sure to contact your doctor if you have any problems Your doctor will let you know when you will need your next colonoscopy. The results of your test andyour risk for colorectal cancer will help your doctor decide how often you need to be checked. Sunday-Sunday Same Day Endo [phone]-8p Otherwise contact [phone] and ask to speak to the loop cutter international logistics analyst Follow up care is a lindo part of your treatment and safety. Be sure to make and go to all appointments, and call your doctor if you are having problems. Discharge instructions reviewed with patient who expresses understanding Patient InstructionsGoAbhinav samson MD - 03/26/2019 10:12 AM EDT Please see Recommendations in the Provation procedure report which is documented in the procedural note in E-DH. documented in this encounter Medications at Time [...] 201711/20/2019 3.125 mg Tablet 2 times daily. magnesium oxide TAKE ONE TABLET BY 1 03/06/2018 0 03/28/2019 (MAG-OX) 400 mg (241.3 MOUTH TWICE A DAY mg magnesium) Tablet documented as of this encounter H&P Notes Nancy Hankins MD - 03/26/2019 9:01 AM EDT Patient Name: Blossom Samayoa Patient Age: 58 y.o. Birthdate: 1960 Admit date: 03/26/2019 Attending Physician: Abhinav Stacy MD Gastroenterology and Hepatology Pre-Procedure History and Physical Exam Procedure: Colonoscopy: Indication: h/o ileal resection, diarrhea, CRC screening Patient Active Problem List Diagnosis Code ??? [...] N20.0 ??? Shock R57.9 ??? Abscess L02.91 EXAM: HEENT: Airway examined, oropharynx clear Mallampati Score: II (soft palate, uvula, fauces visible) LUNGS: Clear to auscultation HEART: Regular rate and rhythm, normal S1, S2 ABDOMEN: Normal bowel sounds, soft, non tender, non distended, A/P Proceed with the planned endoscopic procedure. ASA 3 - Patient with moderate systemic disease with functional limitations Sedation Plan: anesthesia Risks and benefits of the procedure explained to the patient. Consent signed. Nancy Hankins MD Advanced Endoscopy Fellow Gastroenterology documented in this encounter Miscellaneous Notes Op Note - Abhinav Stacy MD - 03/26/2019 10:11 AM EDT [facility] Operative Note Patient Name: Blossom Samayoa : [id number] MR#: [id number] Case Date: 03/26/2019 Surgeon: Surgeon(s) and Role: * Abhinav Stacy MD - Primary * Nancy Hankins MD - Fellow Preoperative diagnosis: colo screening Prep- Split Postoperative diagnosis: * No post-op diagnosis entered * Procedure(s) (LRB): COLONOSCOPY, POLYPECTOMY, REMOVAL LESION BY SNARE (WRVU 4.67) (N/A) Anesthesia: MAC Full procedure note is documented under the Procedure section of eDH. documented in this encounter Plan of Treatment Upcoming Encounters Date Type Specialty Care Team Description 03/15/2022 Office Visit Neurology Ryann Barfield APRN [facility] [address] [place] [id number] 03/23/2022 Appointment Radiology Hailey Mcclendon MD [facility] [place] [address] 03/23/2022 Laboratory Appointment Lab 03/23/2022 Office Visit Gastroenterology Hailey Mcclendon MD [facility] [place] [address] 05/23/2022 Procedure visit Maxillofacial Surgery Corby Montes MD [facility] [address] [place] [id number] documented as of this encounter Procedures Procedure Name Priority Date/Time Associated Comments Diagnosis SURGICAL PATHOLOGY Routine 03/26/2019 9:56 AM Res ults for this REPORT EDT procedure are i n the results section. SPECIMEN TO PATHOLOGY Routine 03/26/2019 9:56 AM Results for this EDT procedure are i n the results section. SPECIMEN TO PATHOLOGY Routine 03/26/2019 9:56 AM Results for this EDT procedure are i n the results section. SPECIMEN TO PATHOLOGY Routine 03/26/2019 9:56 AM Results for this EDT procedure are i n the results section. COLONOSCOPY, 03/26/2019 9:06 AM colo screenin g POLYPECTOMY, REMOVAL EDT Prep- Split LESION BY SNARE (WRVU 4.67) COLONOSCOPY Routine 03/26/2019 8:52 AM Results f or this EDT procedure are i n the results section. POCT GLUCOSE Routine 03/26/2019 8:19 AM Results f or this EDT procedure are i n the results section. documented in this encounter Results Surgical Pathology Report (03/26/2019 9:56 AM EDT) Component Value Ref Test Analysis Performed At [facility] Range Method Time Signature Surgical [id number] ? Location: ; [facility]; [facility] Pathology [place] Report The signing pathologist has (i) examined the relevant preparation(s) for the [facility] specimen(s) and (ii) rendered or confirmed the diagnosis(es) . HOSPITAL LABORATORY . ?Surgic al Pathology DIAGNOSIS A - Ascending colon, ?? polypectomy: Tubular adenoma. B - Random, ??biopsy: Colonic mucosa with mild hyperplastic epithelial changes. C - Rectosigmoid colon, ?? polypectomy: Colonic mucosa with hyperplastic epithelium and subepithel ial smooth muscel proliferation, see discussion. No dysplasia is seen. CR-PX Electronically signed by: ??Blake RUIZ, Snow Verified: ??03/28/2019 ?Pathologist Performed at: ??-[facility] Dept. of Pathology, [place], [place] DISCUSSION Part C: Muscularis mucosae p roliferation and small leiomyoma are in the differential diagnosis. CLINICAL INFORMATION Specimen Submitted: A - Ascending colon polyp B - Random biopsies C - Rectosigmoid polyp Clinical History and Diagnosis: Screening colonoscopy, chronic diarrhea SPECIMEN PROCESSING A - Labeled/Fixative: Ascending colon polyp, formalin. Quantity/Size: Multiple, ranging from 0.1-0.3 cm. Tissue Description: Soft, zapata tissues. Sections/Processing: Submitted en toto ??in 2 cassettes labeled A1-A2. B - Labeled/Fixative: Random biopsies, formalin. Quantity/Size: Multiple, ranging from 0.1-0.5 cm. Tissue Description: Soft, zapata tissues. Sections/Processing: Submitted en toto ??in 4 cassettes labeled B1-B4. C - Labeled/Fixative: Rectosigmoid polyp, formalin. Quantity/Size: Single, 0.7 x 0.5 x 0.5 cm. Tissue Description: Soft, pink polyp. Sections/Processing: Inked, trisected and entirely submitted in 1 cassette labele d C1. ??sns Specimen (Source) Anatomical Collection Method Collection Time Re ceived Time Location / / Volume Laterality 03/26/2019 9:56 AM EDT Abhinav Stacy MD PATHOLOGY/CYTOLOGY ORDERABLE S Performing Organization Address [facility] [place] [address] Specimen to Pathology (03/26/2019 9:56 AM EDT) Specimen Anatomical Collection Method Collection Time Receive d Time (Source) Location / / Volume Laterality AP Specimen 03/26/2019 9:56 AM 9 9:56 EDT AM EDT Narrative [facility] OR - 03/26/2019 9:56 AM EDT Specimen requisition ordered. ??Separate Pathology report to follow Abhinav Stacy MD PATHOLOGY/CYTOLOGY ORDERABLE S Performing Organization Address City/[facility]/ZIP [place] [address] Specimen to Pathology (03/26/2019 9:56 AM EDT) Specimen Anatomical Collection Method Collection Time Receive d Time (Source) Location / / Volume Laterality AP Specimen 03/26/2019 9:56 AM 9 9:56 EDT AM EDT Narrative [facility] OR - 03/26/2019 9:56 AM EDT Specimen requisition ordered. ??Separate Pathology report to follow Abhinav Stacy MD PATHOLOGY/CYTOLOGY ORDERABLE S Performing Organization Address City/[facility]/[place] [address] Specimen to Pathology (03/26/2019 9:56 AM EDT) Specimen Anatomical Collection Method Collection Time Receive d Time (Source) Location / / Volume Laterality AP Specimen 03/26/2019 9:56 AM 9 9:[address] [facility] - 03/26/2019 9:56 AM EDT Specimen requisition ordered. ??Separate Pathology report to follow Abhinav Stacy MD PATHOLOGY/CYTOLOGY ORDERABLE S Performing Organization Address City/State/[place] [address] COLONOSCOPY (03/26/2019 8:52 AM EDT) [facility] gist Method Time Signature COLONOSCOPY [facility] PROVATION Endoscopy Procedure Date: 03/26/2019 8:52 AM ? Patient Name: Blossom Samayoa ? Date of : 1960 ? Age: 58 ? Order #: [id number] ? Instrument Name: [id number] ? Procedure: ? Colonoscopy Indications: ? Screening for colorectal malignant ? neoplasm, Incidental - Clinic ally ? significant diarrhea of unexp lained ? origin Providers: ? Abhinav Stacy MD, Nancy Alvarado , ? Emma Lezama, Ariane nicole, ? Leeanne Bhat MD: ?Ace Roger MD Medicines: ? Monitored Anesthesia Care Complications: ? No immediate complications. Procedure: ? Pre-Anesthesia Assessment: ? - ASA Grade Assessment: III - A ? patient with severe systemic disease. ? The procedure, indications, b enefits, ? [...] direct visuali zation, ? advanced to the terminal ileu m. ? Careful inspection was made a s the ? colonoscope was withdrawn. Th e ? colonoscopy was performed nhung patel ? difficulty. The patient myron ated the ? procedure well. The quality o f the ? bowel preparation was evaluat ed using ? the BBPS (Reynolds Bowel Prepar ation ? Scale) with scores of: Right Colon = ? 3, Transverse Colon = 3 and L eft ? Colon = 3 (entire mucosa seen well ? with no residual staining, sm all ? fragments of stool or opaque liquid). ? The total BBPS score equals 9 . ? Findings: ? The perianal and digital rectal examinations were ? normal. ? There was evidence of a patent ileo-ileal end-to-side ? surgical anastomosis found in the distal ileum, ? approximately 10cm proximal to the ICV. This ? anastomosis was characterized by healthy appearing ? mucosa and the visualized terminal ileum appeared ? normal. ? A few small-mouthed diverticula were found in the ? sigmoid colon. ? Two sessile polyps were found in the ascending colon. ? The polyps were 3 to 5 mm in size. The larger polyp ? was removed with a cold snare and the smaller one ? with a cold biopsy forceps. Resection and retrieval ? were complete. ? A 7 mm polyp was found in the recto-sigmoid colon. ? The polyp was sessile. The polyp was removed with a ? cold snare. Resection and retrieval were complete. ? The exam was otherwise without abnormality. Random ? colon biopsies were obtained given history of ? diarrhea to rule out microscopic colitis. ? Moderate Sedation: ? See anesthesia notes. Impression: ?- Left sided diverticulosis ? - Two 3 to 5 mm polyps in the ? ascending colon s/p polypecto my ? - One 7 mm polyp at the recto -sigmoid ? colon s/p polypectomy ? - Patent ileo-ileal end-to-si de ? surgical anastomosis found in the ? distal ileum which appears he althy Recommendation: ?- Discharge patient to home. ? - Resume previous diet. ? - Await pathology results. ? - Prescribed questran for lik monserrat bile ? acid diarrhea. Per op report >100cm ? of ileum was resected, theref ore ? another consideration is fat ? malaborption. ? - Given ileal resection, sydney ent ? should eventually be placed o n ? vitamin B12 replacement. ? - Repeat colonoscopy for surv eillance ? based on pathology results. W e will ? send a message/letter to sydney ent with ? recommendations. ? Procedure Code(s): ?? --- Professional --- ? 18930, GC, Colonoscopy, flexi ble; ? with removal of tumor(s), adalberto yp(s), ? or other lesion(s) by snare t echnique Diagnosis Code(s): ?? --- Professional --- ? Z12.11, Encounter for screeni august for ? malignant neoplasm of colon ? D12.2, Benign neoplasm of asc ending ? colon ? D12.7, Benign neoplasm of ? rectosigmoid junction ? Z98.0, Intestinal bypass and ? anastomosis status ? --- Technical --- ? Z12.11, Encounter for earl koch for ? malignant neoplasm of colon ? D12.2, Benign neoplasm of asc ending ? colon ? D12.7, Benign neoplasm of ? rectosigmoid junction ? Z98.0, Intestinal bypass and ? anastomosis status CPT copyright 2017 [employer]. All rights reserved. The codes documented in this report are preliminary and upon lavender farm worker review may be revised to meet current compliance requirements. Attending Participation: ? I was present and participated during the entire ? procedure, including non-lindo portions. ? Abhinav R Regis, MD 03/26/2019 10:11:29 AM This report has been signed electronically. Number of Addenda: 0 Note Initiated On: 03/26/2019 8:52 AM Specimen (Source) Anatomical Collection Method Collection Time Re ceived Time Location / / Volume Laterality 03/26/2019 8:52 AM EDT Ace Henry MD GENERAL SURGICAL ORDERABLES Performing Organization Address City/State/ZIP Code Phon e Number PROVATION POCT Glucose (03/26/2019 8:19 AM EDT) P athologist Signature POC Glucose 130 65 - 199 [facility] mg/dL [facility] Comment: Supplemental ranges: <140 mg/dL before meals <180 mg/dL all other times of the day Specimen Anatomical Collection Method Collection Time Receive d Time (Source) Location / / Volume Laterality Blood specimen 03/26/2019 8:19 AM 019 8:19 (specimen) EDT AM EDT Abhinav Stacy MD POINT OF CARE TEST ORDERABLE S Performing Organization Address City/State/[place] [address] documented in this encounter Visit Diagnoses Not on filedocumented in this encounter Administered Medications Inactive Administered Medications - up to 3 most recent administrations Medication Order MAR Action Action Date Dose Rate Site lactated ringers infusion New Bag 03/26/2019 9:04 AM EDT 100 mL/hr, Intravenous, CONTINUOUS, Starting on Sun03/26/19 at 0815, Until Sun03/26/19 at 1238, Endoscopy (Day of Procedure) documented in this encounter Active and Recently Administered Medications Times are shown in EDT. Continuous Medication Order 03/24/2019 03/25/2019 03/26/2019 lactated ringers infusion 0904 ( New Bag - Provider: Hola Madera CRNA)1005 (Stopped - Provider: Hola Madera CRNA) 100 mL/hr, at 100 mL/hr, Intravenous, CO NTINUOUS, Starting Sun03/26/19 at 0815, Until Sun03/26/19 at 1238, Endo (Day of Procedure) documented in this encounter Care Teams Public Relations Counselor Relationship Specialty Start Date End Date Albert Zuleta MD PCP - General Family Medicine 01/17/17 10/26/21 [address] [place] [address] documented as of this encounter
--- OUTSIDE RECORDS SUMMARY | 2022-02-08 01:52 | XMS_ITS | Encounter Summary ---
:1960 Author Organization [facility] [place] [address] Care Team Providers Name Role Phone Albert Zuleta MD Primary Care Provider Encounter Details Date Type Department Care Team Description 02/19/2019 Ancillary Procedure Radiology Library at Ace Henry MD [facility] [place] [address] [place] [address] [phone] (Wo rk) Social History Tobacco Use Types [...] 03/15/2022 Office Visit Neurology Ryann Barfield, [facility] NEUROLOGY [place], [place] [address] 03/23/2022 Appointment Radiology Hailey Mcclendon MD [facility] [place] [address] 03/23/2022 Laboratory Appointment Lab 03/23/2022 Office Visit Gastroenterology Hailey Mcclendon MD [facility] [place] [address] 05/23/2022 Procedure visit Maxillofacial Surgery Corby Montes MD [facility] [place] [address] documented as of this encounter Procedures Procedure Name Priority Date/Time Associated Diagnosis Comme nts FILM LIBRARY Routine 02/19/2019 7:52 PM Results f or this STORAGE ONLY CT EDT procedure ar e in ABDOMEN AND PELVIS the resul ts section. documented in this encounter Results Film Library- Storage Only CT Abdomen & Pelvis (02/19/2019 7:52 PM EDT) Specimen (Source) Anatomical Location Collection Method / Collectio n Time Received Time / Laterality Volume Narrative RAD - 02/19/2019 7:52 PM EDT This exam is auto-finalizing. It's purpo se is for storage only. Ace Henry MD IMJean Pierre FILM LIBRARY ORDERABLES Performing Organization Address City/State/ZIP Code Phon e Number [place], [place] documented in this encounter Visit Diagnoses Not on filedocumented in this encounter Care Teams Smoking Pipe Coater Relationship Specialty Start Date End Date Albert Zuleta MD PCP - General Family Medicine 01/17/17 10/26/21 [place] [id number] documented as of this encounter
--- OUTSIDE RECORDS SUMMARY | 2022-02-08 01:52 | XMS_ITS | Encounter Summary ---
:1960 [place] [address] Care Team Providers Name Role Phone Albert Zuleta MD Primary Care Provider Encounter Details Date Type Department Care Team Description 02/28/2019 Laboratory Appointment Lab [address] [place] [address] Social History Tobacco Use Types Packs/Day [...] Office Visit Neurology Ryann Barfield, [facility] [address] [address] 03/23/2022 Appointment Radiology Hailey Mcclendon MD [facility] [address] [place] 0[address] 03/23/2022 Laboratory Appointment Lab 03/23/2022 Office Visit Gastroenterology Hailey Mcclendon MD [facility] [address] [place] [address] 05/23/2022 Procedure visit Maxillofacial Surgery Corby Montes MD [facility] [address] [place] [address] documented as of this encounter Procedures Procedure Name Priority Date/Time Associated Diagnosis Comme nts HEMOGRAM Routine 02/28/2019 8:53 AM Abscess Results f or this EDT procedure are i n the results section. DIFFERENTIAL, Routine 02/28/2019 8:53 AM Abscess Results for this AUTOMATED EDT procedure are i n the results section. CBC (WITH DIFF) Routine 02/28/2019 8:53 AM Abscess EDT documented in this encounter Results Differential, Automated (02/28/2019 8:53 AM EDT) athologist Signature Neutrophils % 57.0 % [facility] Neutr Abs (ANC) 4.72 1.70 - [facility] 6.10 [facility] x10(3)/[facility] LABORATORY Lymphocytes % 33.8 % [facility] Lymphocytes Abs 2.8 0.9 - 3.2 [facility] x10(3)/[facility] LABORATORY Monocytes % 6.4 % [facility] Monocyte Abs 0.5 0.3 - 0.9 [facility] x10(3)/[facility] LABORATORY Eosinophils % 2.4 % [facility] Eosinophils Abs 0.2 0.0 - 0.4 [facility] x10(3)/[facility] LABORATORY Basophils % 0.2 % [facility] Basophils Abs 0.0 0.0 - 0.1 [facility] x10(3)/[facility] LABORATORY Immature Gran % 0.20 % [facility] Comment: Immature granulocytes(IG's)percentage an d absolute count will include metamyelocytes, myelocytes, and promyelo cytes. Blood smears from CBCs yielding IG's will be scanned manually for concor danshabana. If this scan disagrees with the automated IG or if promyelocytes are not ed, a manual differential will be performed. Irina Gran Abs 0.02 0.00 - 0.04 x10(3)/[facility] Specimen Anatomical Collection Method Collection Time Receive d Time (Source) Location / / Volume Laterality Blood specimen 02/28/2019 8:53 AM 019 8:58 (specimen) EDT AM EDT Resulting Agency Comment Spec In Lab Jaxson Ramos MD HEMATOLOGY ORDERABLES Performing Organization Address City/State/[place] [address] (ABNORMAL) Hemogram (02/28/2019 8:53 AM EDT) Analysis Performed At Patho logist Time Signature WBC 8.3 4.0 - 9.5 [facility] x10(3)/[facility] LABORATORY RBC 3.76 (L) 4.00 - [facility] x10(6)/[facility] LABORATORY Hemoglobin 10.8 (L) 11.7 - [facility] 15.5 gm/dL [facility] Hematocrit 34.1 (L) 35.7 - [facility] 45.8 % [facility] MCV 90.7 82[facility]6 - [facility]4 [facility] LAB[facility] MCH 28.7 27.1 - [facility] [place] 32.0 pg [facility] MCHC 31.7 31.7 - [facility] 35.0 gm/dL [facility] Platelets 266 145 - 357 [facility] x10(3)/[facility] LABORATORY RDWSD 43.5 37.0 - [facility] [place] 46.0 [facility] LABORATORY RDWCV 13.2 11.5 - [facility] 14.1 % [facility] MPV 9.5 7.6 - 12.9 [facility] LABORATORY nRBC % Auto 0.0 % [facility] nRBC Abs Auto 0.000 0.000 - [facility] 0.000 [facility] x10(3)/[facility] LABORATORY Specimen Anatomical Collection Method Collection Time Receive d Time (Source) Location / / Volume Laterality Blood specimen 02/28/2019 8:53 AM 019 8:58 (specimen) EDT AM EDT Resulting Agency Comment Spec In Lab Jaxson Ramos MD HEMATOLOGY ORDERABLES Performing Organization Address City/State/ZIP Code Phon e Number [place] [phone] documented in this encounter Visit Diagnoses Diagnosis Abscess Cellulitis and abscess of unspecified si te documented in this encounter Care Teams Vocational Psychologist Relationship Specialty Start Date End Date Albert Zuleta MD PCP - General Family Medicine 01/17/17 10/26/21 [address] [place] [address] documented as of this encounter
--- OUTSIDE RECORDS SUMMARY | 2022-02-08 01:52 | XMS_ITS | Encounter Summary ---
:1960 Author Organization [facility] [place] [address] Care Team Providers Name Role Phone Albert Zuleta MD Primary Care Provider Reason for Referral Diagnostic Test (Routine) - Closed Specialty Diagnoses / Procedures Referred By Contact Refer red To Contact Radiology Diagnoses Abscess Ted Polk, DO [facility] Interventionl Rad Procedures IR Drain Check/Change/Remove [facility] [place] [address] [place] [address] Referral ID Status Reason Start Date Expiration Date Visits V isits Requested Authorized [id number] Closed Specialty 02/21/2019 02/21/2020 1 1 Service Requested Reason for Visit Diagnostic Test (Routine) - Closed Specialty Diagnoses / Procedures Referred By Contact Refer red To Contact Radiology Diagnoses Abscess Ted Polk, [facility] Interventionl Rad Procedures IR Drain Check/Change/Remove [facility] [place] [address] [place] [address] Referral ID Status Reason Start Date Expiration Date Visits V isits Requested Authorized [id number] Closed Specialty 02/21/2019 02/21/2020 1 1 Service Requested Encounter Details Date Type Department Care Team Description 03/07/2019 Hospital Encounter Radiology at [facility] [place] [id number] Social History Tobacco Use Types Packs/Day [...] Sign Reading Time Taken Comments Blood Pressure 124/62 03/07/2019 9:00 AM EDT Pulse 68 03/07/2019 9:00 AM EDT Temperature 36.4 ??C (97.6 ??F) 03/07/2019 9:00 AM EDT Respiratory Rate 18 03/07/2019 9:00 AM EDT Oxygen Saturation 98% 03/07/2019 9:00 AM EDT Inhaled Oxygen Concentration - - Weight - - Height - - Body Mass Index - - documented in this encounter Discharge Instructions Discharge InstructionsAvani Aly RN - 03/07/2019 10:08 AM EDT [facility] Vascular and Interventional Radiology Discharge Instructions For Your Puncture Site Activity and Diet: ??? Go Home and rest quietly for the remainder of the day. You may resume your normal activities tomorrow. ??? Resume your usual diet after the procedure. Bandage: There is a sterile dressing over the puncture site consisting of small gauze with a clear dressing (Tegaderm). This dressing should be left in place for 24 hours. If the clear dressing becomesloose you should place tape over the edges to secure it in place. Bathing: Do not take a shower until 24 hours after your procedure; after this time you may shower with the dressing in place, then remove it and pat your skin dry. You may use a bandaid to cover the site if there is any drainage. When to call your healthcare provider: ??? If you notice bleeding or a bulge from the puncture site, you should apply firm pressure over the site for 10-15 minutes, keeping the site covered and call your doctor. If you are still bleeding after 10-15 minutes, reapply pressure, and have someone drive you to the nearest Emergency Department, or call 911. ??? If you develop pain, redness, drainage or swelling at or around the puncture site. ??? If you develop fever equal to or greater than 101F and/or shaking chills. When to call the Interventional Radiology Department: Please call with any questions or concerns. Ifit is during regular office hours, please call [phone]. If it is after regular office hours, oron weekends or holidays, please call [phone] and ask to speak to the Grapple Yarder Operator on callfor Interventional Radiology. Revised 08/06/15 documented in this encounter Medications at Time [...] 03/09/2018 (PRINIVIL;ZESTRIL) 5 mg MOUTH DAILY Tablet diphenoxylate-atropine Take 1 tablet by mouth 90 [...] magnesium) Tablet documented as of this encounter Progress Notes Avani Aly RN - 03/04/2019 3:55 PM EDT [facility]AB[facility] Name: BLOSSOM PACHECO Date of : 1960 AGE: 58 y.o. Address: [address] [place] [phone] (home) Mobile: No relevant phone numbers on file. Referring Provider: Ted Polk REASON FOR VISIT: Order Questions Answers Where will study be performed? [facility] Radiology [120] Reason for exam and clinical history: Abdominal Wall Collection s/p drainage 02/20/19. Follow up exam for drain exchange vs. removal. Exam/Procedure requested: Abdominal Wall Collection s/p drainage 02/20/19. Follow up exam for drain exchange vs. removal. Is the patient on anticoagulant / anitplatelet therapy ? No Plan Planned procedure: Anterior Abdominal Wall Drain Check (03/04/19 1343) Labs to be performed day of procedure: No labs (03/04/19 1343) Sedation: fentanyl only (03/04/19 1343) Contrast: Omnipaque (03/04/19 1343) Additional medications for procedure: Lidocaine (03/04/19 1343) Planned access site: anterior abdominal wall (03/04/19 1343) Position: Supine (03/04/19 1343) Consent: Scanned (03/04/19 1343) Allergies Allergen Reactions ??? Anafranil [Clomipramine] give me the flu ??? Augmentin [Amoxicillin-Pot Clavulanate] Hives and Itching ??? Cis Free Text Allergy Ketamine. CIS - hallucinations ??? Erythromycin Hives and Itching ??? Lidocaine Hcl (Local Anesth.) [Procedural Tray] Itching and Other (See Comments) Lidocaine 2% topical anesthetic jelly ONLY not lidocaine for IV starts. Causes itching and burning ??? Macrobid [Nitrofurantoin Monohyd/M-Cryst] Causes depression ??? Sulfa (Sulfonamide Antibiotics) Hives [...] All Drainage Procedures 02/20/[address] [facility] INTERVENTIONL RAD ??? PRG ECHOENCEPHALOGRAPH REAL TIME Left 11/07/2018 ULTRASOUND USE (WRVU 0.63) performed by Crow Galvin Jr., MD at [facility] OR ??? PRG FLUOROSCOPY EXAM UP TO 1 HR PHY OR OTH HLTH CARE PROV N/A 09/26/2018 FLUOROSCOPY (WRVU 0.17) performed by Crow Galvin Jr., MD at [facility] OR ??? PRG FLUOROSCOPY EXAM UP TO 1 HR PHY OR OTH HLTH CARE PROV N/A 11/07/2018 FLUOROSCOPY (WRVU 0.17) performed by Corw Galvin Jr., MD at [facility] OR ??? PRG US GUIDE INTRAOP Right 09/26/2018 ULTRASONIC GUIDANCE, INTRAOP (WRVU 1.2) performed by Crow Galvin Jr., MD at [facility] OR ? ? PRO CYSTO W URETEROSCOPY &/OR PYELOSCOPY, DX Right 09/26/2018 CYSTOURETEROSCOPY, DIAGNOSTIC (WRVU 5.75) performed by Crow Galvin Jr., MD at [facility] OR ? ? PRO CYSTO W URETEROSCOPY &/OR PYELOSCOPY, DX Left 11/07/2018 CYSTOURETEROSCOPY, DIAGNOSTIC (WRVU 5.75) performed by Crow Galvin Jr., MD at [facility] OR ??? PRO CYSTOSCOPY, INSERT URETERAL STENT Right 07/10/2018 CYSTO, STENT PLACEMENT (WRVU 2.82) performed by Viky Sears MD at [facility] OR ??? PRO CYSTOSCOPY, REMV CALCULUS, COMPLIC Right 09/26/2018 CYSTO, REMOVAL OF STENT, FOREIGN BODY, CALCULUS, COMPLICATED (WRVU 5.2) performed by Crow Galvin MD at [facility] OR ??? PRO CYSTOURETHROSCOPY, URETER CATHETER Right 07/10/2018 CYSTO, RETROGRADE, URETEROPYELOGRAPHY (WRVU 2.37) performed by Viky Sears MD at [facility] OR ??? PRO CYSTOURETHROSCOPY, URETER CATHETER Right 09/26/2018 CYSTO, RETROGRADE, URETEROPYELOGRAPHY, W/PCNL (WRVU 2.37) performed by Crow Galvin Jr., MD at [facility] OR ??? PRO EXPLORATORY OF ABDOMEN N/A 01/05/2019 @EXPLORATORY LAPAROTOMY, WITH/WITHOUT BIOPSY(S) (WRVU 12.54) performed by Ace Henry MD at [facility] OR ??? PRO EXPLORATORY OF ABDOMEN N/A 01/07/2019 @EXPLORATORY LAPAROTOMY, WITH/WITHOUT BIOPSY(S) (WRVU 12.54) performed by Ace Henry MD at [facility] OR ??? PRO FREEING BOWEL ADHESION, ENTEROLYSIS N/A 01/05/2019 @LYSIS OF ADHESIONS, ABD. (WRVU 18.46) performed by Ace Henry MD at [facility] OR ? ? PRO PERCUTANEOUS NEPHROSTOLITHOTOMY/PYELOSTOLITHOTOMY > 2 CM Right 09/26/2018 NEPHROLITHOTOMY, (PCNL) PERCUTANEOUS, OVER 2CM (WRVU 23.5) performed by Crow Galvin Jr., MD at [facility] OR ? ? PRO PERCUTANEOUS NEPHROSTOLITHOTOMY/PYELOSTOLITHOTOMY > 2 CM Left 11/07/2018 NEPHROLITHOTOMY, (PCNL) PERCUTANEOUS, OVER 2CM (WRVU 23.5) performed by Crow Galvin Jr., MD at [facility] OR ? ? PRO [facility] NEPHROSTOMY CATH PRQ NEW ACCESS RS&I Right 09/26/2018 NEPHROSTOMY CATHETER, PERC, INC DX NEPHROSTOGRAM/URETEROGRAM, IMG GUIDANCE (WRVU 4.25) performed byCrow Galvin Jr., MD at [facility] MAIN OR ? ? PRO MT NEPHROSTOMY CATH PRQ NEW ACCESS RS&I Left 11/07/2018 NEPHROSTOMY CATHETER, PERC, INC DX NEPHROSTOGRAM/URETEROGRAM, IMG GUIDANCE (WRVU 4.25) performed byCrow Galvin Jr., MD at [facility] MAIN OR ??? PRO RENAL ENDOSCOPY, TREATMENT Left 11/07/2018 RENAL ENDOSCOPY W\FULG, W\WO\BX, VIA NEPHROSTOMY (WRVU 6.61) performed by Crow Galvin Jr., MD [facility] OR ??? PRO RESECT SMALL INTEST, SINGL RESEC/ANAS N/A 01/07/2019 @BOWEL RESECTION, SMALL INTESTINE SINGLE ANASTOMOSIS (WRVU 20.82) performed by Ace Henry MD at [facility] MAIN OR Date/Procedure: Meds given/comments: 02/20/19 US Abdominal Drain Placment Local Only per Pt request 03/07/19 Sinogram, drain removal Local only, drove self. ? Laboratory Results: Lab Results Component Value Date INR 1.1 01/04/2019 Lab Results Component Value Date CREATININE 0.57 (L) 02/21/2019 Lab Results Component Value Date K 3.6 02/21/2019 Lab Results Component Value Date PLATELET 266 02/28/2019 Medications: Prior to Admission medications Medication Sig Start Date End Date Taking? Authorizing Provider amoxicillin-clavulanate (AUGMENTIN) 875-125 mg Tablet Take 1 tablet by mouth 2 times daily for 14 days. 02/21/19 03/07/19 Jaxson Ramos MD amitriptyline (ELAVIL) 25 mg Tablet Take 25 mg by mouth nightly. PROVIDER, HISTORICAL CANNABIDIOL, CBD, EXTRACT ORAL Take by mouth as needed. PROVIDER, HISTORICAL ACYCLOVIR ORAL Take by mouth as needed. PROVIDER, HISTORICAL nitroGLYcerin (NITROSTAT) 0.4 mg Tablet, Sublingual Place 0.4 mg under the tongue every 5 minutes asneeded for Chest pain. PROVIDER, HISTORICAL ibuprofen (ADVIL;MOTRIN) 200 mg Tablet Take 800 mg by mouth every 6 hours as needed for Pain. PROVIDER, HISTORICAL lactobacillus rhamnosus, GG, (CULTURELLE) 10 [...] by mouth 2 times daily. PROVIDER, HISTORICAL acetaminophen (TYLENOL) 325 mg Tablet Take 2 tablets by mouth every 6 hours. 07/24/18 Dex Fleming MD aspirin 81 mg Tablet, Chewable Take 81 mg by mouth daily. 07/11/18 Kelsey Eaton MD levalbuterol (XOPENEX HFA) 45 mcg/actuation HFA Aerosol Inhaler INHALE TWO PUFFS BY MOUTH EVERY 4 TO6 HOURS NEEDED 05/07/18 PROVIDER, HISTORICAL INCRUSE ELLIPTA 62.5 mcg/actuation Disk with Device INHALE ONE PUFF BY MOUTH EVERY DAY 05/07/18 PROVIDER, HISTORICAL glipiZIDE-metFORMIN (METAGLIP) 5-500 mg Tablet TAKE TWO TABLETS BY MOUTH TWICE A DAY 06/18/18 PROVIDER, HISTORICAL loratadine (CLARITIN) 10 mg Tablet [...] TABLET BY MOUTH DAILY 03/09/18 PROVIDER, HISTORICAL magnesium oxide (MAG-OX) 400 mg (241.3 mg magnesium) Tablet TAKE ONE TABLET BY MOUTH TWICE A DAY 03/06/18 PROVIDER, HISTORICAL documented in this encounter H&P Notes Sumanth Cabrera MD - 03/04/2019 1:43 PM EDT Images from the original note were not included. INTERVENTIONAL RADIOLOGY FOCUSED H&P and PRE-PROCEDURE NOTE: PCP: Albert Zuleta MD Referring Provider: Ted Polk Planned Procedure: Planned procedure: Anterior Abdominal Wall Drain Check Procedure Indication: Abdominal Wall Collection s/p drainage 02/20/19. Follow up exam for drain exchange vs. removal. Order Questions Answers Where will study be performed? [facility] Radiology [120] Reason for exam and clinical history: Abdominal Wall Collection s/p drainage 02/20/19. Follow up exam for drain exchange vs. removal. Exam/Procedure requested: Abdominal Wall Collection s/p drainage 02/20/19. Follow up exam for drain exchange vs. removal. Is the patient on anticoagulant / anitplatelet therapy ? No Presenting Diagnosis/ Complaint: Blossom Pacheco is a 58 y.o. female with past medical history ofventral hernia, sarcoidosis on prednisone, CHF, and COPD??who presented with incarcerated ventral hernia at [facility] in December 2018 with exploratory laparotomy and small bowel resection at that time. Post operative course was complicated by abscess for which patient was [facility] withpercutaneous drainage now with drain removal. Patient represented to [facility] with distention, erythema,and low grade temperature for which a CT of the Abdomen and Pelvis revealed an abscess within the abdominal wall. IR was consulted for percutaneous drainage with catheter placement, which was performedon 02/20/19. She has only had scant output from her BIANCA drain since Sunday, but it continues to hold suction. Patient is returning for routine drain check. Past Medical/Surgical History: Patient Active Problem List [...] failure 'don't know if it's failure ??? retirement current use of opiate analgesic PCP ??? Mental health problem ??? Obstructive sleep apnea diag 2007 ??? Osteoma of ear canal ??? Vertigo balance prob,last fall early Jun. Past Surgical History: Procedure Laterality Date ??? IR ALL DRAINAGE PROCEDURES 02/20/2019 IR All Drainage Procedures 02/20/[address] [facility] INTERVENTIONL RAD ??? PRG ECHOENCEPHALOGRAPH REAL TIME Left 11/07/2018 ULTRASOUND USE (WRVU 0.63) performed by Crow Galvin Jr., MD at [facility] MAIN OR ??? PRG FLUOROSCOPY EXAM UP TO 1 HR PHY OR OTH HLTH CARE PROV N/A 09/26/2018 FLUOROSCOPY (WRVU 0.17) performed by Crow Galvin Jr., MD at [facility] MAIN OR ??? PRG FLUOROSCOPY EXAM UP TO 1 HR PHY OR OTH HLTH CARE PROV N/A 11/07/2018 FLUOROSCOPY (WRVU 0.17) performed by Crow Galvin Jr., MD at [facility] MAIN OR ??? PRG US GUIDE INTRAOP Right 09/26/2018 ULTRASONIC GUIDANCE, INTRAOP (WRVU 1.2) performed by Crow Galvin Jr., MD at [facility] MAIN OR ? ? PRO CYSTO W URETEROSCOPY &/OR PYELOSCOPY, DX Right 09/26/2018 CYSTOURETEROSCOPY, DIAGNOSTIC (WRVU 5.75) performed by Crow Galvin Jr., MD at [facility] OR ? ? PRO CYSTO W URETEROSCOPY &/OR PYELOSCOPY, DX Left 11/07/2018 CYSTOURETEROSCOPY, DIAGNOSTIC (WRVU 5.75) performed by Crow Galvin Jr., MD at [facility] OR ??? PRO CYSTOSCOPY, INSERT URETERAL STENT Right 07/10/2018 CYSTO, STENT PLACEMENT (WRVU 2.82) performed by Viky Sears MD at [facility] OR ??? PRO CYSTOSCOPY, REMV CALCULUS, COMPLIC Right 09/26/2018 CYSTO, REMOVAL OF STENT, FOREIGN BODY, CALCULUS, COMPLICATED (WRVU 5.2) performed by Crow Galvin MD at [facility] OR ??? PRO CYSTOURETHROSCOPY, URETER CATHETER Right 07/10/2018 CYSTO, RETROGRADE, URETEROPYELOGRAPHY (WRVU 2.37) performed by Viky Sears MD at [facility] OR ??? PRO CYSTOURETHROSCOPY, URETER CATHETER Right 09/26/2018 CYSTO, RETROGRADE, URETEROPYELOGRAPHY, W/PCNL (WRVU 2.37) performed by Crow Galvin Jr., MD at [facility] OR ??? PRO EXPLORATORY OF ABDOMEN N/A 01/05/2019 @EXPLORATORY LAPAROTOMY, WITH/WITHOUT BIOPSY(S) (WRVU 12.54) performed by Aec Henry MD at [facility] OR ??? PRO EXPLORATORY OF ABDOMEN N/A 01/07/2019 @EXPLORATORY LAPAROTOMY, WITH/WITHOUT BIOPSY(S) (WRVU 12.54) performed by Ace Henry MD at [facility] OR ??? PRO FREEING BOWEL ADHESION, ENTEROLYSIS N/A 01/05/2019 @LYSIS OF ADHESIONS, ABD. (WRVU 18.46) performed by Ace Henry MD at [facility] OR ? ? PRO PERCUTANEOUS NEPHROSTOLITHOTOMY/PYELOSTOLITHOTOMY > 2 CM Right 09/26/2018 NEPHROLITHOTOMY, (PCNL) PERCUTANEOUS, OVER 2CM (WRVU 23.5) performed by Crow Galvin Jr., MD at [facility] MAIN OR ? ? PRO PERCUTANEOUS NEPHROSTOLITHOTOMY/PYELOSTOLITHOTOMY > 2 CM Left 11/07/2018 NEPHROLITHOTOMY, (PCNL) PERCUTANEOUS, OVER 2CM (WRVU 23.5) performed by Crow Galvin Jr., MD at [facility] MAIN OR ? ? PRO [facility] NEPHROSTOMY CATH PRQ NEW ACCESS RS&I Right 09/26/2018 NEPHROSTOMY CATHETER, PERC, INC DX NEPHROSTOGRAM/URETEROGRAM, IMG GUIDANCE (WRVU 4.25) performed byCrow Galvin Jr., MD at [facility] MAIN OR ? ? PRO PLVT NEPHROSTOMY CATH PRQ NEW ACCESS RS&I Left 11/07/2018 NEPHROSTOMY CATHETER, PERC, INC DX NEPHROSTOGRAM/URETEROGRAM, IMG GUIDANCE (WRVU 4.25) performed Crow Snyder Jr., MD at [facility] MAIN OR ??? PRO RENAL ENDOSCOPY, TREATMENT Left 11/07/2018 RENAL ENDOSCOPY W\FULG, W\WO\BX, VIA NEPHROSTOMY (WRVU 6.61) performed by Crow Galvin Jr., MD [facility] OR ??? PRO RESECT SMALL INTEST, SINGL RESEC/ANAS N/A 01/07/2019 @BOWEL RESECTION, SMALL INTESTINE SINGLE ANASTOMOSIS (WRVU 20.82) performed by Ace Henry MD at [facility] OR Medications: Current Outpatient Medications on File Prior to Encounter Medication Sig Dispense Refill ??? amoxicillin-clavulanate (AUGMENTIN) 875-125 mg Tablet Take 1 tablet by mouth 2 times daily for 14 days. 28 tablet 0 ??? amitriptyline (ELAVIL) 25 mg Tablet Take 25 mg by mouth nightly. ??? CANNABIDIOL, CBD, EXTRACT ORAL Take by mouth as needed. ??? ACYCLOVIR ORAL Take by mouth as needed. ??? nitroGLYcerin (NITROSTAT) 0.4 mg Tablet, Sublingual Place 0.4 mg under the tongue every 5 minutes as needed for Chest pain. ??? ibuprofen (ADVIL;MOTRIN) 200 mg Tablet Take 800 mg by mouth every 6 hours as needed for Pain. ??? lactobacillus rhamnosus, GG, (CULTURELLE) 10 billion [...] tablet by mouth 2 times daily. ??? acetaminophen (TYLENOL) 325 mg Tablet Take 2 tablets by mouth every 6 hours. 30 tablet 1 ??? aspirin 81 mg Tablet, Chewable Take 81 mg by mouth daily. 30 tablet 3 ??? levalbuterol (XOPENEX HFA) 45 mcg/actuation HFA Aerosol Inhaler INHALE TWO PUFFS BY MOUTH EVERY 4 TO 6 HOURS NEEDED 3 ??? INCRUSE ELLIPTA 62.5 mcg/actuation Disk with Device INHALE ONE PUFF BY MOUTH EVERY DAY 5 ??? glipiZIDE-metFORMIN (METAGLIP) 5-500 mg Tablet TAKE TWO TABLETS BY MOUTH TWICE A DAY 3 ??? loratadine (CLARITIN) 10 mg Tablet [...] ONE TABLET BY MOUTH DAILY 3 ??? magnesium oxide (MAG-OX) 400 mg (241.3 mg magnesium) Tablet TAKE ONE TABLET BY MOUTH TWICE A DAY1 No current facility-administered medications on file prior to encounter. Allergies: Anafranil [clomipramine]; Augmentin [amoxicillin-pot clavulanate]; Cis free text allergy;Erythromycin; Lidocaine hcl (local anesth.) [procedural tray]; Macrobid [nitrofurantoin monohyd/m-cryst]; and Sulfa (sulfonamide antibiotics) Social History and Habits: Social History Socioeconomic [...] Last attempt to quit: 07/23/2016 Years since quittin.6 ??? Smokeless tobacco: Never Used Substance and Sexual Activity ??? Alcohol use: No Frequency: Never Comment: 3 X a year ??? Drug use: Yes Types: Marijuana, Pain Pills Comment: rarely used, once every few months ??? Sexual activity: Never Partners: Male Lifestyle ??? Physical activity: Days per week: Not on file Minutes per session: Not on file ??? Stress: Not on file Relationships ??? Social connections: Talks on phone: Not on file Gets together: Not on file Attends caodaism service: Not on file Active member of [...] Cancer Sister Pertinent ROS: as per HPI Labs: Lab Results Component Value Date WBC 8.3 02/28/2019 HCT 34.1 (L) 02/28/2019 PLATELET 266 02/28/2019 INR 1.1 01/04/2019 BUN 5 (L) 02/21/2019 CREATININE 0.57 (L) 02/21/2019 ALKPHOS 108 (H) 02/19/2019 AST 20 02/19/2019 ALBUMIN 3.8 02/19/2019 BILIDIR 0.2 02/19/2019 BILITOT 0.8 02/19/2019 ALT 11 02/19/2019 PROT 7.6 02/19/2019 Imaging: Physical Exam: Pending (to be performed in angio the day of procedure) Assessment: 58 y.o. female with past history as above, presenting for Anterior Abdominal Wall Drain Check. Platelets 266k. No elevated INR risk factors. No relevant allergies. Plan Planned procedure: Anterior Abdominal Wall Drain Check Labs to be performed day of procedure: No labs Sedation: fentanyl only Contrast: Omnipaque Additional medications for procedure: Lidocaine Planned access site: anterior abdominal wall Position: Supine Consent: Scanned 03/04/2019 Sumanth Cabrera MD [id number] documented in this encounter Plan of Treatment Upcoming Encounters Date Type Specialty Care Team Description 03/15/2022 Office Visit Neurology Ryann Barfield APRN [facility] [address] [place], [place] [address] 03/23/2022 Appointment Radiology Hailey Mcclendon MD [facility] [place] [address] 03/23/2022 Laboratory Appointment Lab 03/23/2022 Office Visit Gastroenterology Hailey Mcclendon MD [facility] [place] [address] 05/23/2022 Procedure visit Maxillofacial Surgery Corby Montes MD [facility] [address] [place] [address] documented as of this encounter Procedures Procedure Name Priority Date/Time Associated Diagnosis Comme nts IR DRAIN Routine 03/07/2019 10:12 AM Abscess Results for this CHECK/CHANGE/REMOVE EDT procedur e are in the results section. documented in this encounter Results IR Drain Check/Change/Remove (03/07/2019 10:12 AM EDT) Anatomical Region Laterality Modality Head X-Ray Angiography Specimen (Source) Anatomical Location Collection Method / Collectio n Time Received Time / Laterality Volume Narrative 03/09/2019 3:24 PM EDT IR PROCEDURE NOTE Procedure: Fluoroscopic abdominal drain check and removal. Indication for Procedure: 58 year old fe male with complex past recent surgical history who initially presented with incarcerated ventral hernia and underwent exploratory laparotomy and small bowel resection. Patient had abscess drain placed at [facility] which was removed by her surgeon. More recently, pigtail catheter was plac ed by Interventional Radiology here on 02/20 for an anterior abd wall abs cess. Patient reports minimal output since placement. Procedure events and findings: After obtaining informed consent, the pa tient was positioned in a supine position on procedure table and sterile prep and drape was performed. Contrast injection via the drainage cath eter showed no residual cavity and demonstrated no communication with bowel . Contrast flowed back along the catheter and out at the skin entry site. Guide wire was advanced through the cath eter and catheter was removed without difficulty over wire. The patient tolerated the procedure well . Medications: ??2% lidocaine gel topical ? Contrast: 10 ml Fluoroscopy Time: ??1 minute Est Blood Loss: <5 ml Complications: ??None immediate Impression: 1. Drainage catheter injection showed no abscess cavity or communication with bowel. 2. Pigtail catheter was removed without incident. Fellow: ??Nilesh Gr MD Attending: Albert Mendez MD. ??I, Dr. Ed madrid was present throughout this procedure. ?? Ace Henry MD IMG IR ORDERABLES documented in this encounter Visit Diagnoses Diagnosis Abscess Cellulitis and abscess of unspecified si te documented in this encounter Administered Medications Inactive Administered Medications - up to 3 most recent administrations Medication Order MAR Action Action Date Dose Rate Site iohexol (OMNIPAQUE) 350 mg/mL Given 03/07/2019 10:13 AM EDT 10 m Ls solution 50 mL 50 mL, Other, ONCE PRN, 1 dose, Starting on Sun03/07/19 at 1012, Until Sun03/07/19 at 1013, Per Protocol, Warning Vesicant/Irritant Medication , Routine lidocaine (XYLOCAINE) 2 % jelly Given 03/07/2019 9:51 AM EDT 1 Bottle Topical (Top), ONCE, On Sun03/07/19 at 1015, 1 dose, Angio/IR (Intra-Procedure) documented in this encounter Care Teams Horse Identifier Relationship Specialty Start Date End Date Albert Zuleta MD PCP - General Family Medicine 01/17/17 10/26/21 [address] [place] [phone] documented as of this encounter
--- OUTSIDE RECORDS SUMMARY | 2022-02-08 01:52 | XMS_ITS | Encounter Summary ---
:1960 Author Organization [facility] [place] [address] Care Team Providers Name Role Phone Albert Zuleta MD Primary Care Provider Reason for Referral Diagnostic Test (Routine) - Closed Specialty Diagnoses / Procedures Referred By Contact Refer red To Contact Radiology Diagnoses Abscess Ted Polk, DO [facility] Interventionl Rad Procedures IR Drain Check/Change/Remove [facility] [place] [address] [place] [address] Referral ID Status Reason Start Date Expiration Date Visits V isits Requested Authorized [id number] Closed Specialty 02/21/2019 02/21/2020 1 1 Service Requested Reason for Visit Auth/Cert Specialty Diagnoses / Procedures Referred By Contact Refer red To Contact Diagnoses Abscess ABSCESS Referral ID Status Reason Start Date Expiration Date Visits Requ ested Visits Authorized [id number] 1 1 Encounter Details Date Type Department Care Team Description 02/19/2019 - Hospital Encounter Intermediate Cardiac Ace Henry , Abscess 02/21/2019 Care Unit Hailey RUIZ [facility] [place] [address] [place] [address] [phone] Social History Tobacco Use Types Packs/Day Years [...] Sign Reading Time Taken Comments Blood Pressure 138/76 02/21/2019 3:21 PM EDT Pulse 72 02/20/2019 2:51 PM EDT Temperature 36.5 ??C (97.7 ??F) 02/21/2019 3:21 PM EDT Respiratory Rate 16 02/21/2019 3:21 PM EDT Oxygen Saturation 100% 02/21/2019 3:21 PM EDT Inhaled Oxygen Concentration - - Weight 124.9 kg (275 lb 5.7 oz) 02/21/2019 4:14 AM EDT Height 167.6 cm (5' 6) 02/19/2019 10:28 PM EDT Body Mass Index 44.44 02/19/2019 10:28 PM EDT documented in this encounter Discharge Summaries Jaxson Ramos MD - 02/21/2019 3:15 PM EDT Images from the original note were not included. General Surgery Inpatient - Discharge Summary Patient Name: Blossom Pacheco Patient Age: 58 y.o. Birthdate: 1960 Admit date: 02/19/2019 Discharge date: 02/21/2019 Admitting Physician: Ace Henry MD Primary Diagnosis: Abdominal wall abscess Secondary Diagnosis: Active Hospital Problems Diagnosis ??? Abscess Resolved Hospital Problems No resolved problems to display. Active Non-Hospital Problems Diagnosis ??? Shock ??? Renal calculus, left ??? [...] BMI of 50.0-59.9, adult ??? Sarcoidosis HPI: Copied from H&P: This is a 58 y.o. female with PMH ventral hernia, sarcoidosis on prednisone, CHF, and COPD who presents with 1 day of tmax 99.8 and weakness. Of note, Ms. Pacheco presented to [facility] on 01/04 from [facility] with acute-onset abdominal pain with n/v and dyspnea, concerning for hypoxic respiratory failure with shock. CT scan at [facility] showed SBO 2/2 incarcerated ventral hernia. She was transferred to [facility] and ultimately taken emergently to the OR for ex lap w/o bowel resection. She returned to the OR on 01/07 forex lap, resulting in ~80 cm of small bowel resection. ?? She was ultimately discharged with a BIANCA drain in place, which she pulled herself at home when the output slowed to less than 30cc/day for 2 consecutive days. She was discharged to rehab on 01/15. In mid-January, she presented to [facility] with fevers, foul odor and pus emanating from her BIANCA drain site. CT scan at [facility] demonstrated abscess at the BIANCA drain site. She was admitted at [facility], where she was treated with IV antibiotics and drain placement in [facility]. That drain has since been removed. ?? Tonight, she presents in transfer from [facility] after 1 day of Tmax athome of 99.8 and generalized weakness. She denies n/v, headaches, abdominal pain, chest pain, SOB, hematuria, dysuria, dyschezia, hematochezia. She does endorse diarrhea, although remarks this is her baseline. Operations/Major Procedures: Ultrasound guided IR drainage: 02/20/19 Hospital Course: Blossom Pacheco was admitted on 02/19/19. She was hemodynamically stable with a mild leukocytosis. CT performed earlier in the day at OSH demonstrated an abdominal wall abscess. She was started on vancomycin IV and interventional radiology was consulted for drainage. She underwent ul trasound guided drainage with IR on 02/20/19. She tolerated the procedure well and without complication. Post-procedure, her diet was advanced and she was tolerating it without difficulty. Review of cultures from her admission at [facility] demonstrated the presence of enterococcus. Infectious disease was consulted for management and a 2 week course of Augmentin was decided upon (only mild rash withampicillin use in the past). She was deemed stable for discharge home on 02/21/19. She will follow up in 1 week with repeat CBC and then again in 2 weeks with sinogram to evaluate for residual cavity andensure no fistulous connection. Important Studies and Lab Data: See below. Pathology: None Microbiology: Final cultures pending, gram stain below: Body Fluid Culture, Aerobic [[id number]] Collected: 02/20/19 1533 Lab Status: Preliminary result Specimen: Fluid Updated: 02/21/19818 Body Fluid Culture No growth to date. Gram Stain -- Few Neutrophils seen No microorganisms seen. Urine culture [[id number]] Collected: 02/19/19 2220 Lab Status: Final result Specimen: First Catch Urine Updated: 02/21/19 0717 Urine Culture No growth (Less than 1,000 cfu/ml). Labs: Lab Results Component Value Date Sodium 139 02/21/2019 Potassium 3.6 02/21/2019 Chloride 106 02/21/2019 CO2 22 02/21/2019 BUN 5 (L) 02/21/2019 Creatinine 0.57 (L) 02/21/2019 Glucose Lvl 129 02/21/2019 CBC Lab Results Component Value Date WBC 6.8 02/21/2019 Hemoglobin 9.2 (L) 02/21/2019 Hematocrit 29.0 (L) 02/21/2019 Platelets 177 02/21/2019 Pending Lab Data at Discharge: None Studies: CT abdomen/pelvis (02/19/19): FINDINGS: The lung bases are within normal limits. The heart is normal in size. No pleural or pericardial effusion. ?? There is hepatosplenomegaly. There is borderline micronodularity of the liver capsule, best seen along the anterior surface of the left lobe suggesting possible cirrhosis. Minimal hepatic steatosis may also be present. No focal hepatic lesions seen. The spleen measures 15.1 cm in craniocaudal dimension. The hepatic and portal veins are patent. ?? Patient is status post cholecystectomy. The pancreas and biliary ductal system are normal. ?? There is a 4 mm, nonobstructing interpolar right renal stone. The kidneys and adrenal glands are otherwise normal. ?? There is a small bowel anastomosis in the left lower quadrant anteriorly with adjacent fat stranding. This loop is immediately beneath the anterior abdominal wall. Along the surgical incision in the left lower quadrant, there is a subcutaneous fluid and gas collection measuring approximately 4.6 x 2.6 x 3.8 cm. No evidence of bowel obstruction. No appendicitis. No colonic diverticula at the level of the above inflammatory changes. ?? There are several small upper abdominal retroperitoneal/periaortic lymph nodes. No pathologically enlarged adenopathy. ?? There are atherosclerotic changes in the lower abdominal aorta but no evidence of aneurysm. ?? The urinary bladder is unremarkable. Patient is status post hysterectomy. ?? There are degenerative changes in the spine and hips but no lytic or blastic process seen. ?? IMPRESSION 4.6 x 2.6 x 3.8 cm abscess in the subcutaneous tissue of the lower anterior abdominal wall along the incision site with a large amount of surrounding inflammatory change. Deep to this subcutaneous abscess, just beneath the anterior abdominal wall is a small bowel anastomosis with surrounding inflammatory change. The possibility of a fistulous communication through the anterior abdominal wall should be considered. Discharge Exam: Last value Range last 12 hrs Temperature Temp: 36.5 ??C (97.7 ??F) Temp: [36.3 ??C (97.3 ??F)-36.5 ??C (97.7 ??F)] Heart Rate Heart Rate: 72 Heart Rate: -- Blood Pressure BP: 135/72 BP: (124-138)/(67-72) Respiratory Rate Resp: 16 Resp: [16] SpO2 SpO2: 98 % SpO2: [97 %-98 %] I/Os: I/O last 3 completed shifts: In: 2865.8 [P.O.:280; I.V.:1178.8; Other:7; IV Piggyback:1400] Out: 2925 [Urine:2925] I/O this shift: In: 1050 [P.O.:1050] Out: 800 [Urine:800] General: NAD, resting comfortably in bed, pleasant and interactive HEENT: no scleral icterus, moist mucous membranes CVS: regular rate and rhythm Pulm: normal work of breathing Abd: soft, non-tender, midline incision well healed with palpable area of induration at inferior aspect of incision. Prior BIANCA drain site and IR drain site without drainage. IR drain with serosanguinousoutput. : No elliott Skin: warm and dry Ext: no cyanosis or edema Neuro: CN II-XII grossly intact, moving all four extremities spontaneously Discharge Plans: Discharge to: Home VNA: Yes Name of facility: [facility] Contact information: PHONE: [phone] FAX: [phone] Discharge Conditions/Prognosis: Stable Discharge Medications: The following medications have been prescribed for you. If you notice any adverse reactions to your medications, please contact your primary care physician immediately or go to the nearest Emergency Department. Your Medications New Medications Dose Details amoxicillin-clavulanate 875-125 mg Tab Commonly known as: AUGMENTIN Take 1 tablet by mouth 2 times daily for 14 days. 1 tablet Quantity: 28 tablet Refills: 0 Continued medications, unchanged Dose Details acetaminophen 325 mg Tab Commonly known as: TYLENOL Take 2 tablets by mouth every 6 hours. 650 mg Quantity: 30 tablet Refills: 1 ACYCLOVIR ORAL Take by mouth as needed. Refills: 0 amitriptyline 25 mg Tab Commonly known as: ELAVIL Take 25 mg by mouth nightly. 25 mg Refills: 0 aspirin 81 mg Chew Take 81 mg by mouth daily. 81 mg Quantity: 30 tablet Refills: 3 atorvastatin 10 mg Tab Commonly known as: LIPITOR Take 10 mg by mouth daily. 10 mg Refills: 0 CANNABIDIOL (CBD) EXTRACT ORAL Take by mouth as needed. Refills: 0 carvedilol 3.125 mg Tab Commonly known as: COREG TAKE ONE TABLET BY MOUTH TWICE A DAY Refills: 3 diclofenac 1 % Gel Commonly known as: VOLTAREN Apply topically 4 times daily as needed. Refills: 0 gabapentin 600 mg Tab Commonly known as: NEURONTIN TAKE ONE TABLET BY MOUTH THREE TIMES A DAY Refills: 1 glipiZIDE-metFORMIN 5-500 mg Tab Commonly known as: METAGLIP TAKE TWO TABLETS BY MOUTH TWICE A DAY Refills: 3 HYDROcodone-acetaminophen 5-325 mg Tab Commonly known as: NORCO Take 1 tablet by mouth 2 times daily. 1 tablet Refills: 0 ibuprofen 200 mg Tab Commonly known as: ADVIL;MOTRIN Take 800 mg by mouth every 6 hours as needed for Pain. 800 mg Refills: 0 INCRUSE ELLIPTA 62.5 mcg/actuation Dsdv INHALE ONE PUFF BY [...] lisinopril 5 mg Tab Commonly known as: PRINIVIL;ZESTRIL TAKE ONE TABLET BY MOUTH DAILY Refills: 3 loratadine 10 mg Tab Commonly known as: CLARITIN TAKE ONE TABLET BY MOUTH EVERY DAY NEEDED Refills: 3 magnesium oxide 400 mg (241.3 mg magnesium) Tab Commonly known as: MAG-OX TAKE ONE TABLET BY MOUTH TWICE A DAY Refills: 1 nitroGLYcerin 0.4 mg Subl Commonly known as: NITROSTAT Place 0.4 mg under the tongue every 5 minutes as needed for Chest pain. 0.4 mg Refills: 0 spironolactone 25 mg Tab Commonly known as: ALDACTONE TAKE ONE TABLET BY MOUTH EVERY DAY Refills: 3 TRULICITY SUBQ Inject subcutaneously once a week. Refills: 0 Updated Allergies/ADRs: Allergies Allergen Reactions ??? Anafranil [Clomipramine] give [...] Future Appointments Date Time Provider Department Center 02/28/2019 9:00 AM LAB, THREE L Lab 3L [facility] 02/28/2019 10:00 AM Ace Henry MD Leb Surg [facility] 03/07/2019 9:30 AM [facility] IR ROOM 3 IR [facility] Rad 03/07/2019 11:45 AM Ace Henry MD Leb Surg [facility] 03/28/2019 11:00 AM Ace Henry MD Leb Surg [facility] Outpatient Services/Studies: IR Drain Check/Change/Remove Standing Status: Future Standing Exp. Date: 03/24/19 Question Response Notes Where will study be performed? [facility] Radiology [120] Reason for exam and clinical history: Abdominal Wall Collection s/p drainage 02/20/19. Follow up exam for drain exchange vs. removal. Exam/Procedure requested: Abdominal Wall Collection s/p drainage 02/20/19. Follow up exam for drain exchange vs. removal. Is the patient on anticoagulant / anitplatelet therapy ? No CBC (with Diff) Standing Status: Future Standing Exp. Date: 08/30/19 Referral to Home Health - at DISCHARGE Order Comments: DOCUMENTATION FOR VNA SERVICES (INCLUDING THOSE PATIENTS WITH MEDICARE COVERAGE REQUIRING HOME VNA SERVICES AND/OR HOSPICE SERVICES) PATIENT'S LOCATION: Blossom Pacheco [address] [place] [id number] (home) Cell: No relevant phone numbers on file. Chaplain Resident's Name: In discussion with the attending physician, it is certified that this patient is under their care and that they, or a Nurse Practitioner,Clinical Nurse specialist or Physician Life Sciences Instructor who is working directly with them, had a face to face encounter that meets the physician face to face encounter requirements with this patient on 02/21/19 please fill in date The encounter with the patient was in whole, or in part, for the following medical condition, which is the primary reason for home health care services: assistance with IR drain management, tracking intake and output, flushing of drain In discussion with the provider, it is certified that, based on their findings, the following services are medically necessary for home health services. To provide the following care/treatments with the clinical findings supporting the need for servicesas follows: HOME CARE ORDERS: RN ORDERS:Assess wound or incision, vital signs, cardiopulmonary status, nutrition, hydration, elimination, meds effectiveness and management; reinforce education re health issues RN please follow the following wound care instructions: Please flush IR drain with 5 mL of sterile saline or water twice daily. Please record intake and output. HOME HEALTH CARE AGENCY: [facility] PHONE: [phone] FAX: [phone] Start of care: 24 to 48 hours post discharge FOR MEDICARE ONLY: (please delete this section if not Medicare) In discussion with the attending physician, it is certified that the clinical findings support that this patient is homebound because absences from home require considerable and taxing effort due to: requires assistance of another to navigate community surfaces. Please note that any additional orders needs or changes will need to be obtained from this patient'sPCP: Albert Zuleta MD [id number] / [facility] [address] All [facility] agencies which cover the area of patient's residence have been reviewed, either verbally or in writing, and patient/family have chosen the home health care agency noted Question Response Notes Agency name and contact information [facility] [address] What services are requested Registered Nurse Instructions Given to Patient at Discharge:. An After Visit Summary was printed and given to the patient. Patient Instructions General Discharge Instruction Activity: No restrictions. As tolerated by your comfort level. Call Doctor for: Please call if you notice worsening redness or drainage from incision(s), any foul-smelling drainage from the incision, pain not controlled by pain medications, persistent nausea or vomiting, or for any fevers greater than 101.3 F. The number for questions is [phone] before 5 PM weekdays and [phone] after 5 PM and weekends. Pain Medication: No driving for 8 hours after any dose of opioid pain medication if one was prescribed for you. You may use ibuprofen (motrin, advil) in addition to this medication if your pain is not totally controlled. Antibiotics: You have been prescribed Augmentin by the infectious disease doctors who saw you duringadmission. If you are unable to tolerate this medication, please call the clinic to discuss changingmedications. Follow-up: Follow-up appointment will be scheduled with Dr. Henry in 1 and 2 weeks. At the 1 week follow up you will have your blood counts checked to make sure there are no signs of infection. At the 2 week follow up you will have a study done to evaluate the abscess cavity, called a sinogram. After the sinogram you will see Dr. Henry in clinic where the decision whether or not to remove the drain will be made. Please call [phone] (clinic number for appointments) to confirm date and time of your appointment if you do not receive your apointment in 3 weeks. General Instructions INTERVENTIONAL RADIOLOGY DRAIN CARE INSTRUCTIONS Drains help to keep fluid from collecting by removing the extra blood and fluid from under the skin or from an abscess within the body. A drain is temporary. It stays in place until the drainage has slowed down or stopped. Your Provider will decide when each drain should be removed. This is usually after each drain has 30cc or less in 24 hours for 2-3 days in a row. You will then be scheduled for what is called a Sinogram to check and see if the fluid collection has gotten smaller. How do I care for the drains at home? Pin your drain/s to your clothing by using a safety pin through the plastic loop on the top of the bulb. If the drain is not attached to your clothing, it may pullout from under your skin. Also, a drain usually feels more comfortable when it???s attached. To carefor the drain at home, you will have to empty the drain, ???strip?? the drain tubing, and change the dressing if applicable. * See the following information on instructions on how to do this. You will go home with a dressing over the insertion site. Usually, Visiting Nurses are set up to show you how to change the dressing and care for the drain. They may teach a family member if they are willing. The dressing needs to only be change once a week provided there is no leakage around the tube. What problems may I have with my drain? The bulb is not compressed- The bulb may not be squeezed tightly enough, the plug may not be closed securely, or the tube has slipped out a bit and is leaking. Follow the instructions on how to empty the drain. If the bulb remains expanded, then notify your doctor or nurse during business hours. ??? No drainage or sudden decrease in amount of drainage- This may be due to a plug in the drain. Please notify your doctor or nurse during business hours. ??? The tube accidentally falls out- If this happens, place a dry gauze dressing over the drain siteand notify your doctor or nurse during business hours. ??? Increased redness, swelling, or heat around the tube insertion site- This may be a sign of infection. Take your temperature: if it is higher than 101F or 38.8C, call your doctor or nurse immediately. Otherwise, notify your doctor or nurse during business hours and keep the dressing clean and dry. How to Empty Your Drain and flush drain Note: Wash your hands thoroughly before emptying your drain(s). Unpin the drain from your clothing. 1. Turn the white stopcock so it is not parallel (in line) with the tubing. 2. Unscrew the tubing with the bulb attached from stopcock. Make sure you keep everything clean. 3. Attach the syringe with sterile saline to the stopcock. 4. Inject saline per MD order, 3-5 cc's. Forward flush only, do not aspirate back. 5. Re-attach the tubing with the bulb to the stopcock. 6. Invert the bulb and pull open the plug. 7. Have the plastic measuring cup from the hospital ready to collect and measure the drainage. Please measure the output at the same time every 24 hours and record the amount. 8. Turn the drain upside down and squeeze the contents of the bulb into the measuring cup. Be sure to empty the bulb as completely as possible. Flush the contents in the toilet. 9. Use the drain output log chart to record the amount of drainage twice a day or any time the bulb is full. Record the total for 24 hours for each drain you have. 10. If you have more than one drain, remember to record the drainage from each drain separately. 11. To prevent infection, do not let the stopper or top of the bottle touch the measuring cup or anyother surface. 1. 2. Use one hand to squeeze all of the air from the drain. With the drain still squeezed, use your other hand to replace the top. This creates the suction necessary to remove the fluids from your body. 3. Pin the drain back on your clothing to avoid pulling it out accidently. 4. Wash your hands again. Remember to wash your hands before and after the procedure to reduce the risk of infection. Flushing the Drain: Your doctor may want the drain to be flushed once or twice daily to keep the fluid from plugging the drain. Flush the drain with 3-5 cc daily with the syringes supplied to you. FORWARD FLUSH ONLY, DO NOT ASPIRATE BACK. When to call the Interventional Radiology Department: Please call with any questions or concerns. Ifit is during regular office hours, please call [phone]. If it is after regular office hours, oron weekends or holidays, please call [phone] and ask to speak to the Underwriting Clerks Supervisor on callfor Interventional Radiology. XX You have received medication during your procedure to help lessen anxiety and keep you comfortable. These medications affect judgement and reaction time. We recommend that you do not drive, operateequipment, sign any important documents, or smoke unattended [...] occurs, please contact your M. D. Revised 12/18/17 Drainage Record NAME: Date of Surgery: Date: Time: If more than one drain, which one: Drainage Amount (per drain) Total Amount (per drain; in 24 hours) Follow-up Recommendations for Providers: Medication changes: see above, Augmentin x 2 weeks Diet changes: no changes CC: Albert Zuleta MD Signed: Jaxson Ramos MD 02/21/2019 3:20 PM documented in this encounter Discharge Instructions Discharge Kentrell Small RN - 02/20/2019 4:16 PM EDT Images from the original note were not included. INTERVENTIONAL RADIOLOGY DRAIN CARE INSTRUCTIONS Drains help to keep fluid from collecting by removing the extra blood and fluid from under the skin or from an abscess within the body. A drain is temporary. It stays in place until the drainage has slowed down or stopped. Your Provider will decide when each drain should be removed. This is usually after each drain has 30cc or less in 24 hours for 2-3 days in a row. You will then be scheduled for what is called a Sinogram to check and see if the fluid collection has gotten smaller. How do I care for the drains at home? Pin your drain/s to your clothing by using a safety pin through the plastic loop on the top of the bulb. If the drain is not attached to your clothing, it may pullout from under your skin. Also, a drain usually feels more comfortable when it???s attached. To carefor the drain at home, you will have to empty the drain, ???strip?? the drain tubing, and change the dressing if applicable. * See the following information on instructions on how to do this. You will go home with a dressing over the insertion site. Usually, Visiting Nurses are set up to show you how to change the dressing and care for the drain. They may teach a family member if they are willing. The dressing needs to only be change once a week provided there is no leakage around the tube. What problems may I have with my drain? The bulb is not compressed- The bulb may not be squeezed tightly enough, the plug may not be closed securely, or the tube has slipped out a bit and is leaking. Follow the instructions on how to empty the drain. If the bulb remains expanded, then notify your doctor or nurse during business hours. ??? No drainage or sudden decrease in amount of drainage- This may be due to a plug in the drain. Please notify your doctor or nurse during business hours. ??? The tube accidentally falls out- If this happens, place a dry gauze dressing over the drain siteand notify your doctor or nurse during business hours. ??? Increased redness, swelling, or heat around the tube insertion site- This may be a sign of infection. Take your temperature: if it is higher than 101F or 38.8C, call your doctor or nurse immediately. Otherwise, notify your doctor or nurse during business hours and keep the dressing clean and dry. How to Empty Your Drain and flush drain Note: Wash your hands thoroughly before emptying your drain(s). Unpin the drain from your clothing. 1. Turn the white stopcock so it is not parallel (in line) with the tubing. 2. Unscrew the tubing with the bulb attached from stopcock. Make sure you keep everything clean. 3. Attach the syringe with sterile saline to the stopcock. 4. Inject saline per MD order, 3-5 cc's. Forward flush only, do not aspirate back. 5. Re-attach the tubing with the bulb to the stopcock. 6. Invert the bulb and pull open the plug. 7. Have the plastic measuring cup from the hospital ready to collect and measure the drainage. Please measure the output at the same time every 24 hours and record the amount. 8. Turn the drain upside down and squeeze the contents of the bulb into the measuring cup. Be sure to empty the bulb as completely as possible. Flush the contents in the toilet. 9. Use the drain output log chart to record the amount of drainage twice a day or any time the bulb is full. Record the total for 24 hours for each drain you have. 10. If you have more than one drain, remember to record the drainage from each drain separately. 11. To prevent infection, do not let the stopper or top of the bottle touch the measuring cup or anyother surface. 1. 2. Use one hand to squeeze all of the air from the drain. With the drain still squeezed, use your other hand to replace the top. This creates the suction necessary to remove the fluids from your body. 3. Pin the drain back on your clothing to avoid pulling it out accidently. 4. Wash your hands again. Remember to wash your hands before and after the procedure to reduce the risk of infection. Flushing the Drain: Your doctor may want the drain to be flushed once or twice daily to keep the fluid from plugging the drain. Flush the drain with 3-5 cc daily with the syringes supplied to you. FORWARD FLUSH ONLY, DO NOT ASPIRATE BACK. When to call the Interventional Radiology Department: Please call with any questions or concerns. Ifit is during regular office hours, please call [phone]. If it is after regular office hours, oron weekends or holidays, please call [phone] and ask to speak to the Underwriting Clerks Supervisor on callfor Interventional Radiology. XX You have received medication during your procedure to help lessen anxiety and keep you comfortable. These medications affect judgement and reaction time. We recommend that you do not drive, operateequipment, sign any important documents, or smoke unattended [...] occurs, please contact your M. D. Revised 12/18/17 Drainage Record NAME: Date of Surgery: Date: Time: If more than one drain, which one: Drainage Amount (per drain) Total Amount (per drain; in 24 hours) Patient InstructionsJaxson Ramos MD - 02/21/2019 3:11 PM EDT General Discharge Instruction Activity: No restrictions. As tolerated by your comfort level. Call Doctor for: Please call if you notice worsening redness or drainage from incision(s), any foul-smelling drainage from the incision, pain not controlled by pain medications, persistent nausea or vomiting, or for any fevers greater than 101.3 F. The number for questions is [phone] before 5 PM weekdays and [phone] after 5 PM and weekends. Pain Medication: No driving for 8 hours after any dose of opioid pain medication if one was prescribed for you. You may use ibuprofen (motrin, advil) in addition to this medication if your pain is not totally controlled. Antibiotics: You have been prescribed Augmentin by the infectious disease doctors who saw you duringadmission. If you are unable to tolerate this medication, please call the clinic to discuss changingmedications. Follow-up: Follow-up appointment will be scheduled with Dr. Henry in 1 and 2 weeks. At the 1 week follow up you will have your blood counts checked to make sure there are no signs of infection. At the 2 week follow up you will have a study done to evaluate the abscess cavity, called a sinogram. After the sinogram you will see Dr. Henry in clinic where the decision whether or not to remove the drain will be made. Please call [phone] (clinic number for appointments) to confirm date and time of your appointment if you do not receive your apointment in 3 weeks. documented in this encounter Medications at Time [...] 03/09/2018 (PRINIVIL;ZESTRIL) 5 mg MOUTH DAILY Tablet amoxicillin-clavulanate Take 1 tablet by mouth 28 tablet 0 02/21/2019 03/07/2019 (AUGMENTIN) 875-125 mg 2 times daily for 14 Tablet days. amitriptyline (ELAVIL) Take 25 mg by mouth 0 09/25/2019 25 mg Tablet nightly. CANNABIDIOL, CBD, Take by mouth as 0 1 08/13/2018 EXTRACT ORAL needed. ACYCLOVIR ORAL Take by mouth as 0 05/24 needed. ibuprofen Take 800 mg by mouth 0 05/24 (ADVIL;MOTRIN) 200 mg every 6 hours as Tablet needed for Pain. lactobacillus Take 1 capsule by 0 03/0 11/2019 rhamnosus, GG, mouth daily. (CULTURELLE) 10 [...] documented as of this encounter Progress Notes Marco Lazaro RN - 02/21/2019 3:40 PM EDT Discharge instructions reviewed with pt with focus on drain care & f/u, & correct medicationadministration. IV removed. Questions answered. Pt discharged to self care, left by wheelchair to transportation service. Cely Goldman MSW - 02/21/2019 1:29 PM EDT Per RN/CM request LEGAL EXECUTIVE ASSISTANT supported pt w/ transportation home at d/c. Pt financially unable to pay, RTC ride was scheduled for earlier in the day, but pt was not ready to d/c at that time. Emergency transportation charge slip routed to OCM office. Office Of Care Management Float/Weekend Oil Heater Installer TYRNOE Terry Pager [phone] axson Cruz MD - 02/21/2019 6:58 AM EDT Surgery Inpatient Progress Note ID: Blossom Pacheco is a 58 y.o. female with history of sarcoidosis, NIDDM, COPD, and CAD who underwent exploratory laparotomy with small bowel resection on 01/07/19 for incarcerated ventral hernia in the setting of respiratory failure and shock of unclear etiology, later discharged with BIANCA drain inplace and then development of recurrent abdominal wall abscess with IR drainage at [facility] now presenting with another walled off collection. 24hr events: - Taken to IR for drain placement - ID consulted for enterococcus from last culture - No acute events Subjective: Overall feels well this morning. Denies any fevers, chills, chest pain or nausea. O: Last value Range last 24hrs Temperature Temp: 36.9 ??C (98.4 ??F) Temp: [36.6 ??C (97.8 ??F)-37.1 ??C (98.8 ??F)] Heart Rate Heart Rate: 72 Heart Rate: [69-72] Blood Pressure BP: 138/68 BP: (117-145)/(55-68) Respiratory Rate Resp: 16 Resp: [16-19] SpO2 SpO2: 97 % SpO2: [96 %-100 %] 02/20 07 - 02/21 0700 In: 1810.8 [P.O.:280; I.V.:623.8] Out: 2300 [Urine:2300] Patient Vitals for the past 168 hrs: Weight 02/21/19 0414 124.9 kg (275 lb 5.7 oz) 02/20/19 0437 124.4 kg (274 lb 4 oz) 02/19/19 2228 124.2 kg (273 lb 13 oz) Physical Exam: General: NAD, resting comfortably in bed, pleasant and interactive HEENT: no scleral icterus, moist mucous membranes CVS: regular rate and rhythm Pulm: normal work of breathing Abd: soft, non-tender, midline incision well healed with palpable area of induration at inferior aspect of incision. Prior BIANCA drain site and IR drain site without drainage. IR drain with serosanguinousoutput. : No elliott Skin: warm and dry Ext: no cyanosis or edema Neuro: CN II-XII grossly intact, moving all four extremities spontaneously Recent Labs 02/21/19 0605 02/19/19 2355 01/15/19 0504 WBC 6.8 10.3* 11.3* HGB 9.2* 10.1* 10.0* HCT 29.0* 32.2* 32.3* PLATELET 177 245 261 Recent Labs 02/21/19 0605 02/19/19 2355 01/15/19 0504 NA 139 140 143 K 3.6 3.5 3.0* CL 106 106 112* CO2 22 21* 20* BUN 5* 5* 5* 3* CREATININE 0.57* 0.60* 0.51* Recent Labs 02/21/19 0605 CALCIUM 10.2 PHOS 2.9 Recent Labs 02/19/19 2355 PTT 26 NEW IMAGING: None ASSESSMENT: Blossom Pacheco is a 58 y.o. female with history of sarcoidosis, NIDDM, COPD, and CADs/p exploratory laparotomy and small bowel resection on 01/07 presenting with recurrent abdominal wall abscess. Overall, she is hemodynamically stable and non-toxic appearing. IR drain placed yesterday. Since cultures from last IR drainage at [facility] demonstrated resistant enterococcus, will obtain formal ID consult for recommendations. Discharge pending ID consult. Gram stain with no organisms to day, final cultures pending. PLAN: NEURO: Scheduled tylenol and PRN oxycodone. Continue home amitriptyline and gabapentin. CV: Regular rate and rhythm, history of atrial fibrillation, continue home carvedilol. PULM: COPD, duo-neb while in house. MOSES continue CPAP at night. Encourage IS and ambulation. GI: NPO until after IR drainage, then will advance to carb controlled diet : No elliott, voiding spontaneously, monitor I&O. Holding home spironolactone and lisinopril fornow. FEK: Replete K and Magnesium ID: Vancomycin. Formal ID consult today. HEME: No active issues. ENDO: Hold oral hypoglycemics while inpatient. PROPHYLAXIS: SQH and SCDs DISPO: Floor status. Disposition pending recommendations from ID. Jaxson Ramos MD Ted Polk - 02/21/2019 6:02 AM EDT INTERVENTIONAL RADIOLOGY Inpatient Progress Note Admitted 02/19/2019 Procedure(s): US-Guided Abdominal Wall Collection Drainage - 02/20/19 Post-procedure day: #1 Time of patient encounter: 6:20 AM 24 Hour Events: Patient underwent US-Guided Abdominal Wall Collection drainage yesterday afternoon. No acute events since placement. Last Value 24 Hour Range Temperature 36.9 ??C (98.4 ??F) Temp: [36.6 ??C (97.8 ??F)-37.1 ??C (98.8 ??F)] Heart Rate 72 Heart Rate: [69-72] Blood Pressure 138/68 BP: (117-145)/(55-68) Respiratory Rate 16 Resp: [16-19] SpO2 97 % SpO2: [96 %-100 %] Physical Exam GEN No distress, A&O CARDS RRR LUNGS CTA B/L ABD Non tender, nondistended. Midline incision, healed. Drainage dressing clean, dry, and intact. Scant serous drainage. Drains/Tubes: Intake/Output Summary (Last 24 hours) at 02/21/2019 0602 Last data filed at 02/21/2019 0400 Gross per 24 hour Intake 2865.75 ml Output 2700 ml Net 165.75 ml Labs: Reviewed Micro: Abdominal culture showing few neutrophils, no organisms. Culture pending. Imaging: No new. Assessment: 58 y.o. female with past medical history of ventral hernia, sarcoidosis on prednisone, CHF, and COPD??who presented with incarcerated ventral hernia at [facility] in December 2018 with exploratory laparotomy and small bowel resection at that time. Post operative course was complicated by abscess for which patient was admitted to [facility] with percutaneous drainage now with drain removal. Patient represented to [facility] with distention, erythema, and low grade temperature for which a CT of the Abdomen and Pelvis revealed an abscess within the abdominal wall. IR was consulted for percutaneous drainage with catheter placement. Plan: - Drainage bag to gravity. - Monitor Output. - Drain study in 10-14 days (already ordered by IR). - IR to sign off for now. Please contact us with any questions or concerns. Jaxson Ramos MD - 02/20/2019 5:26 PM EDT Surgery Event Note: Patient back from ultrasound guided drain placement. Reports that she tolerated the procedure well. Denies nausea, feels hungry. Output is serosanguinous. Confirmed with patient that she was seen at [facility] in [place], [place] (NOT [facility] in [place]). Called microbiology to obtain results from abdominal wall abscess drainage on 02/03/19: - 1+ javier albicans/dubliniensis (no sensitivities) - 2+ enterococcus faecalis (sensitivities below): Method DELFINO Ampicillin <=2 susceptible Gent/Amp Syn Susceptible Vancomycin <=0.5 susceptible Linezolid 2 Susceptible Levofloxacin 1 Susceptible Tetracycline >=16 Resistant Quinupristin & Dalfo 4 Resistant Streptomycin 2000 Susceptible Ciprofloxacin <=0.5 Suspectible Based on prior culture data will continue Vancomycin. ID consult pending to discuss best treatment options and salvage determiner treatment. Gram stain with few neutrophils and no microorganisms, cultures pending. 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 A letter describing our affiliations was reviewed with them and theywere educated about their right to choose where referrals are placed. Patient requests referral to [facility] [employer]. PHONE: [phone] FAX: [phone] Expected date of discharge: 02/21/2019 Referral routed to the Rotary Shear Cutter for matching with agency/vendor and to provide any required information. Jaxson Landrum MD - 02/20/2019 7:43 AM EDT Surgery Inpatient Progress Note ID: Blossom Pacheco is a 58 y.o. female with history of sarcoidosis, NIDDM, COPD, and CAD who underwent exploratory laparotomy with small bowel resection on 01/07/19 for incarcerated ventral hernia in the setting of respiratory failure and shock of unclear etiology, later discharged with BIANCA drain inplace and then development of recurrent abdominal wall abscess with IR drainage at [facility] now presenting with another walled off collection. 24hr events: - Admitted overnight - Started on vancomycin - No acute events Subjective: Overall reports feeling tired, but denies any abdominal pain, nausea, vomiting, fevers, or chills. Would like to be able to leave after IR drainage, but understands that she may manifest systemic symptoms post-procedure. O: Last value Range last 24hrs Temperature Temp: 36.8 ??C (98.2 ??F) Temp: [36.8 ??C (98.2 ??F)-37.2 ??C (99 ??F)] Heart Rate Heart Rate: 78 Heart Rate: [78-86] Blood Pressure BP: 123/59 BP: (120-144)/(58-79) Respiratory Rate Resp: 16 Resp: [16-18] SpO2 SpO2: 99 % SpO2: [97 %-99 %] 02/19 0701 - 02/20 0700 In: - Out: 225 [Urine:225] Patient Vitals for the past 168 hrs: Weight 02/20/19 0437 124.4 kg (274 lb 4 oz) 02/19/19 2228 124.2 kg (273 lb 13 oz) Physical Exam: General: NAD, resting comfortably in bed, pleasant and interactive HEENT: no scleral icterus, moist mucous membranes CVS: regular rate and rhythm Pulm: normal work of breathing Abd: soft, non-tender, midline incision well healed with palpable area of induration at inferior aspect of incision. Prior BIANCA drain site and IR drain site without drainage. : No elliott Skin: warm and dry Ext: no cyanosis or edema Neuro: CN II-XII grossly intact, moving all four extremities spontaneously Recent Labs 02/19/19 2355 01/15/19 0504 01/14/19 0547 WBC 10.3* 11.3* 10.8* HGB 10.1* 10.0* 9.5* HCT 32.2* 32.3* 30.4* PLATELET 245 261 274 Recent Labs 02/19/19 2355 01/15/19 0504 01/14/19 0547 NA 140 143 141 K 3.5 3.0* 2.8* CL 106 112* 111* CO2 21* 20* 19* BUN 5* 5* 3* 5* CREATININE 0.60* 0.51* 0.52* Recent Labs 02/19/19 2355 CALCIUM 10.8* PHOS 2.6 Recent Labs 02/19/19 2355 PTT 26 NEW IMAGING: CT abdomen/pelvis - reviewed, abdominal subcutaneous walled off collection with punctate foci of air. ASSESSMENT: Blossom Pacheco is a 58 y.o. female with history of sarcoidosis, NIDDM, COPD, and CADs/p exploratory laparotomy and small bowel resection on 01/07 presenting with recurrent abdominal wall abscess. Overall, she is hemodynamically stable and non-toxic appearing. Plan for IR drainage of abd ominal wall abscess today. Will obtain cultures and tailor antibiotics based on final microbiology. PLAN: NEURO: Scheduled tylenol and PRN oxycodone. Continue home amitriptyline and gabapentin. CV: Regular rate and rhythm, history of atrial fibrillation, continue home carvedilol. PULM: COPD, duo-neb while in house. MOSES continue CPAP at night. Encourage IS and ambulation. GI: NPO until after IR drainage, then will advance to carb controlled diet : No elliott, voiding spontaneously, monitor I&O. Holding home spironolactone and lisinopril fornow. FEK: Replete K and Magnesium ID: Vancomycin dosed. Follow up cultures from IR drainage today, will tailor antibiotics based on microbiology. Will attempt to obtain cultures from [facility]. HEME: No active issues. ENDO: Hold oral hypoglycemics while inpatient. PROPHYLAXIS: SQH and SCDs DISPO: Floor status Jaxson Ramos MD Kentrell Meek RN - 02/20/2019 6:35 AM EDT ANGIO NURSING DATABASE Name: BLOSSOM PACHECO Date of : 1960 AGE: 58 y.o. [address]: [address] [place] [id number] (home) Mobile: No relevant phone numbers on file. Referring Provider: Leon Schafer REASON FOR VISIT: Is the patient on anticoagulant / anitplatelet therapy ? Aspirin Reason for exam and clinical history: s/p SBR for incarcerated ventral hernia c/b abscess x2, drainage of recurrent abscess Exam/Procedure requested: Drainage of intra-abdominal abscess. Please obtain cultures and leave drain. Allergies Allergen Reactions ??? Anafranil [Clomipramine] give me the flu ??? Augmentin [Amoxicillin-Pot Clavulanate] Hives and Itching ??? Cis Free Text Allergy Ketamine. CIS - hallucinations ??? Erythromycin Hives and Itching ??? Lidocaine Hcl (Local Anesth.) [Procedural Tray] Itching and Other (See Comments) Lidocaine 2% topical anesthetic jelly. Causes itching and burning ??? Macrobid [Nitrofurantoin [...] Past Surgical History: Procedure Laterality Date ??? PRG ECHOENCEPHALOGRAPH REAL TIME Left 11/07/2018 ULTRASOUND USE (WRVU 0.63) performed by Crow Galvin Jr., MD at [facility] OR ??? PRG FLUOROSCOPY EXAM UP TO 1 HR PHY OR OTH HLTH CARE PROV N/A 09/26/2018 FLUOROSCOPY (WRVU 0.17) performed by Crow Galvin Jr., MD at [facility] OR ??? PRG FLUOROSCOPY EXAM UP TO 1 HR PHY OR OTH HLTH CARE PROV N/A 11/07/2018 FLUOROSCOPY (WRVU 0.17) performed by Crow Galvin Jr., MD at [facility] OR ??? PRG US GUIDE INTRAOP Right 09/26/2018 ULTRASONIC GUIDANCE, INTRAOP (WRVU 1.2) performed by Crow Galvin Jr., MD at [facility] OR ? ? PRO CYSTO W URETEROSCOPY &/OR PYELOSCOPY, DX Right 09/26/2018 CYSTOURETEROSCOPY, DIAGNOSTIC (WRVU 5.75) performed by Crow Galvin Jr., MD at [facility] OR ? ? PRO CYSTO W URETEROSCOPY &/OR PYELOSCOPY, DX Left 11/07/2018 CYSTOURETEROSCOPY, DIAGNOSTIC (WRVU 5.75) performed by Crow Galvin Jr., MD at [facility] OR ??? PRO CYSTOSCOPY, INSERT URETERAL STENT Right 07/10/2018 CYSTO, STENT PLACEMENT (WRVU 2.82) performed by Viky Sears MD at [facility] OR ??? PRO CYSTOSCOPY, REMV CALCULUS, COMPLIC Right 09/26/2018 CYSTO, REMOVAL OF STENT, FOREIGN BODY, CALCULUS, COMPLICATED (WRVU 5.2) performed by Crow Galvin MD at [facility] OR ??? PRO CYSTOURETHROSCOPY, URETER CATHETER Right 07/10/2018 CYSTO, RETROGRADE, URETEROPYELOGRAPHY (WRVU 2.37) performed by Viky Sears MD at [facility] OR ??? PRO CYSTOURETHROSCOPY, URETER CATHETER Right 09/26/2018 CYSTO, RETROGRADE, URETEROPYELOGRAPHY, W/PCNL (WRVU 2.37) performed by Crow Galvin Jr., MD at [facility] OR ??? PRO EXPLORATORY OF ABDOMEN N/A 01/05/2019 @EXPLORATORY LAPAROTOMY, WITH/WITHOUT BIOPSY(S) (WRVU 12.54) performed by Ace Henry MD at [facility] OR ??? PRO EXPLORATORY OF ABDOMEN N/A 01/07/2019 @EXPLORATORY LAPAROTOMY, WITH/WITHOUT BIOPSY(S) (WRVU 12.54) performed by Ace Henry MD at [facility] OR ??? PRO FREEING BOWEL ADHESION, ENTEROLYSIS N/A 01/05/2019 @LYSIS OF ADHESIONS, ABD. (WRVU 18.46) performed by Ace Henry MD at [facility] OR ? ? PRO PERCUTANEOUS NEPHROSTOLITHOTOMY/PYELOSTOLITHOTOMY > 2 CM Right 09/26/2018 NEPHROLITHOTOMY, (PCNL) PERCUTANEOUS, OVER 2CM (WRVU 23.5) performed by Crow Galvin Jr., MD at [facility] OR ? ? PRO PERCUTANEOUS NEPHROSTOLITHOTOMY/PYELOSTOLITHOTOMY > 2 CM Left 11/07/2018 NEPHROLITHOTOMY, (PCNL) PERCUTANEOUS, OVER 2CM (WRVU 23.5) performed by Crow Galvin Jr., MD at [facility] OR ? ? PRO PLDC NEPHROSTOMY CATH PRQ NEW ACCESS RS&I Right 09/26/2018 NEPHROSTOMY CATHETER, PERC, INC DX NEPHROSTOGRAM/URETEROGRAM, IMG GUIDANCE (WRVU 4.25) performed byCrow Galvin Jr., MD at [facility] OR ? ? PRO PLDC NEPHROSTOMY CATH PRQ NEW ACCESS RS&I Left 11/07/2018 NEPHROSTOMY CATHETER, PERC, INC DX NEPHROSTOGRAM/URETEROGRAM, IMG GUIDANCE (WRVU 4.25) performed byCrow Galvin Jr., MD at [facility] OR ??? PRO RENAL ENDOSCOPY, TREATMENT Left 11/07/2018 RENAL ENDOSCOPY W\FULG, W\WO\BX, VIA NEPHROSTOMY (WRVU 6.61) performed by Crow Galvin Jr., MD [facility] OR ??? PRO RESECT SMALL INTEST, SINGL RESEC/ANAS N/A 01/07/2019 @BOWEL RESECTION, SMALL INTESTINE SINGLE ANASTOMOSIS (WRVU 20.82) performed by Ace Henry MD at [facility] OR Date/Procedure Meds given/comments 02/20 Ultrasound Abdominal Drain Placment Local Only per Pt request Laboratory Results: Lab Results Component Value Date INR 1.1 01/04/2019 Lab Results Component Value Date CREATININE 0.60 (L) 02/19/2019 Lab Results Component Value Date K 3.5 02/19/2019 Lab Results Component Value Date PLATELET 245 02/19/2019 Medications: Prior to Admission medications Medication Sig Start Date End Date Taking? Authorizing Provider amitriptyline (ELAVIL) 25 mg Tablet Take 25 [...] MOUTH TWICE A DAY 03/06/18 PROVIDER, HISTORICAL Alon Shi RN - 02/19/2019 10:20 PM EDT Patient arrived via EMS AAOx4. Ambulated into room. Denies pain. LCTA, On RA. Placed on continuous pulse Ox per orders. Existing scabbed areas B/L abdomen noted. Gauze dressing CDI. Assessment per flowsheet. documented in this encounter H&P Notes Nilesh Gr MD - 02/20/2019 3:03 PM EDT INTERVENTIONAL RADIOLOGY FOCUSED H&P: Procedure: Planned procedure: US-Guided Abdominal Wall Drainage Catheter Placement The patient's history and physical exam have been reviewed and completed. There has been no intervalchange from that of the pre-operative history and physical exam done within the last 30 days. Physical Exam: Cardiovascular: No cyanosis Pulmonary: no increased work of breathing The planned procedure (and sedation plan if appropriate) , its benefits and risks, and alternatives were discussed with the patient. The patient consented to the procedure. PRE-SEDATION ASSESSMENT: Sedation Plan: no sedation ASA: 2: Patient with mild systemic disease Mallampati: II: tonsillar pillars are blocked by the tongue Confirm NPO status: Yes History of anesthetic complications: No Current medications reviewed: Yes Allergies reviewed: Yes Source Note - Ted Polk P - 02/20/2019 6:31 AM EDT Images from the original note were not included. INTERVENTIONAL RADIOLOGY FOCUSED H&P and PRE-PROCEDURE NOTE: PCP: Albert Zuleta MD Referring Provider: Leon Schafer Planned Procedure: Planned procedure: US-Guided Abdominal Wall Drainage Catheter Placement Procedure Indication: Order Questions Answers Is the patient on anticoagulant / anitplatelet therapy ? Aspirin Reason for exam and clinical history: s/p SBR for incarcerated ventral hernia c/b abscess x2, drainage of recurrent abscess Exam/Procedure requested: Drainage of intra-abdominal abscess. Please obtain cultures and leave drain. Presenting Diagnosis/ Complaint: Blossom Pacheco is a 58 y.o. female with past medical history ofventral hernia, sarcoidosis on prednisone, CHF, and COPD who presented with incarcerated ventral hernia at [facility] in December 2018 with exploratory laparotomy and small bowel resection at that time. Post operative course was complicated by abscess for which patient was admitted to [facility] with percutaneous drainage now with drain removal. Patient represented to [facility] with distention, erythema, and low grade temperature for which a CT of the Abdomen and Pelvis revealed an abscess within the abdominal wall. IR was consulted for percutaneous drainage with catheter placement. Fluid to be sent forgram stain and culture. Past Medical/Surgical History: Patient Active Problem List [...] failure 'don't know if it's failure ??? 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 Mental health problem ??? Obstructive sleep apnea diag 2007 ??? Osteoma of ear canal ??? Vertigo balance prob,last fall early Jun. Past Surgical History: Procedure Laterality Date ??? PRG ECHOENCEPHALOGRAPH REAL TIME Left 11/07/2018 ULTRASOUND USE (WRVU 0.63) performed by Crow Galvin Jr., MD at [facility] OR ??? PRG FLUOROSCOPY EXAM UP TO 1 HR PHY OR OTH HLTH CARE PROV N/A 09/26/2018 FLUOROSCOPY (WRVU 0.17) performed by Crow Galvin Jr., MD at [facility] OR ??? PRG FLUOROSCOPY EXAM UP TO 1 HR PHY OR OTH HLTH CARE PROV N/A 11/07/2018 FLUOROSCOPY (WRVU 0.17) performed by Crow Galvin Jr., MD at [facility] OR ??? PRG US GUIDE INTRAOP Right 09/26/2018 ULTRASONIC GUIDANCE, INTRAOP (WRVU 1.2) performed by Crow Galvin Jr., MD at [facility] OR ? ? PRO CYSTO W URETEROSCOPY &/OR PYELOSCOPY, DX Right 09/26/2018 CYSTOURETEROSCOPY, DIAGNOSTIC (WRVU 5.75) performed by Crow Galvin Jr., MD at [facility] OR ? ? PRO CYSTO W URETEROSCOPY &/OR PYELOSCOPY, DX Left 11/07/2018 CYSTOURETEROSCOPY, DIAGNOSTIC (WRVU 5.75) performed by Crow Galvin Jr., MD at [facility] OR ??? PRO CYSTOSCOPY, INSERT URETERAL STENT Right 07/10/2018 CYSTO, STENT PLACEMENT (WRVU 2.82) performed by Viky Sears MD at [facility] OR ??? PRO CYSTOSCOPY, REMV CALCULUS, COMPLIC Right 09/26/2018 CYSTO, REMOVAL OF STENT, FOREIGN BODY, CALCULUS, COMPLICATED (WRVU 5.2) performed by Crow Galvin MD at [facility] OR ??? PRO CYSTOURETHROSCOPY, URETER CATHETER Right 07/10/2018 CYSTO, RETROGRADE, URETEROPYELOGRAPHY (WRVU 2.37) performed by Viky Sears MD at [facility] OR ??? PRO CYSTOURETHROSCOPY, URETER CATHETER Right 09/26/2018 CYSTO, RETROGRADE, URETEROPYELOGRAPHY, W/PCNL (WRVU 2.37) performed by Crow Galvin Jr., MD at [facility] OR ??? PRO EXPLORATORY OF ABDOMEN N/A 01/05/2019 @EXPLORATORY LAPAROTOMY, WITH/WITHOUT BIOPSY(S) (WRVU 12.54) performed by Aec Henry MD at [facility] OR ??? PRO EXPLORATORY OF ABDOMEN N/A 01/07/2019 @EXPLORATORY LAPAROTOMY, WITH/WITHOUT BIOPSY(S) (WRVU 12.54) performed by Ace Henry MD at [facility] OR ??? PRO FREEING BOWEL ADHESION, ENTEROLYSIS N/A 01/05/2019 @LYSIS OF ADHESIONS, ABD. (WRVU 18.46) performed by Ace Henry MD at [facility] OR ? ? PRO PERCUTANEOUS NEPHROSTOLITHOTOMY/PYELOSTOLITHOTOMY > 2 CM Right 09/26/2018 NEPHROLITHOTOMY, (PCNL) PERCUTANEOUS, OVER 2CM (WRVU 23.5) performed by Crow Galvin Jr., MD at [facility] OR ? ? PRO PERCUTANEOUS NEPHROSTOLITHOTOMY/PYELOSTOLITHOTOMY > 2 CM Left 11/07/2018 NEPHROLITHOTOMY, (PCNL) PERCUTANEOUS, OVER 2CM (WRVU 23.5) performed by Crow Galvin Jr., MD at [facility] OR ? ? PRO [facility] NEPHROSTOMY CATH PRQ NEW ACCESS RS&I Right 09/26/2018 NEPHROSTOMY CATHETER, PERC, INC DX NEPHROSTOGRAM/URETEROGRAM, IMG GUIDANCE (WRVU 4.25) performed Crow Snyder Jr., MD at [facility] OR ? ? PRO [facility] NEPHROSTOMY CATH PRQ NEW ACCESS RS&I Left 11/07/2018 NEPHROSTOMY CATHETER, PERC, INC DX NEPHROSTOGRAM/URETEROGRAM, IMG GUIDANCE (WRVU 4.25) performed byCrow Galvin Jr., MD at [facility] OR ??? PRO RENAL ENDOSCOPY, TREATMENT Left 11/07/2018 RENAL ENDOSCOPY W\FULG, W\WO\BX, VIA NEPHROSTOMY (WRVU 6.61) performed by Crow Galvin Jr., MD [facility] MAIN OR ??? PRO RESECT SMALL INTEST, SINGL RESEC/ANAS N/A 01/07/2019 @BOWEL RESECTION, SMALL INTESTINE SINGLE ANASTOMOSIS (WRVU 20.82) performed by Ace Henry MD at [facility] OR Medications: No current facility-administered medications on file prior to encounter. Current Outpatient Medications on File Prior to Encounter Medication Sig Dispense Refill ??? amitriptyline (ELAVIL) 25 mg Tablet Take [...] ONE TABLET BY MOUTH TWICE A DAY1 Allergies: Anafranil [clomipramine]; Augmentin [amoxicillin-pot clavulanate]; Cis [...] Last attempt to quit: 07/23/2016 Years since quittin.5 ??? Smokeless tobacco: Never Used Substance and [...] file Gets together: Not on file Attends restorationism service: Not on file Active member of [...] Labs: Lab Results Component Value Date WBC 10.3 (H) 02/19/2019 HCT 32.2 (L) 02/19/2019 PLATELET 245 02/19/2019 INR 1.1 01/04/2019 BUN 5 (L) 02/19/2019 BUN 5 (L) 02/19/2019 CREATININE 0.60 (L) 02/19/2019 ALKPHOS 108 (H) 02/19/2019 AST 20 02/19/2019 ALBUMIN 3.8 02/19/2019 BILIDIR 0.2 02/19/2019 BILITOT 0.8 02/19/2019 ALT 11 02/19/2019 PROT 7.6 02/19/2019 Imaging: CT of the Abdomen and Pelvis - 02/19/19 (Outside Study) Physical Exam: Pending (to be performed in angio the day of procedure) ASA: Pending (to be assessed in angio the day of procedure) Mallampati Class: Pending (to be assessed in angio the day of procedure) Assessment: 58 y.o. female with past medical history of ventral hernia, sarcoidosis on prednisone, CHF, and COPD who presented with incarcerated ventral hernia at [facility] in December 2018 with exploratory laparotomy and small bowel resection at that time. Post operative course was complicated by abscess for w hich patient was admitted to [facility] with percutaneous drainage now with drain removal.Patient represented to [facility] with distention, erythema, and low grade temperature for which a CT of the Abdomen and Pelvis revealed an abscess within the abdominal wall. IR was consulted for percutaneous drainage with catheter placement. Plan: Plan Planned procedure: US-Guided Abdominal Wall Drainage Catheter Placement Labs to be performed day of procedure: No labs Sedation: fentanyl only Prophylactic antibiotic : None Contrast: No contrast Additional medications for procedure: Lidocaine Planned access site: Anterior Abdominal Wall -- Inferior Left Aspect of Surgical Incision Position: Supine Consent: Pending 02/20/2019 Ted Polk - 02/20/2019 6:31 AM EDT Images from the original note were not included. INTERVENTIONAL RADIOLOGY FOCUSED H&P and PRE-PROCEDURE NOTE: PCP: Albert Zuleta MD Referring Provider: Leon Schafer Planned Procedure: Planned procedure: US-Guided Abdominal Wall Drainage Catheter Placement Procedure Indication: Order Questions Answers Is the patient on anticoagulant / anitplatelet therapy ? Aspirin Reason for exam and clinical history: s/p SBR for incarcerated ventral hernia c/b abscess x2, drainage of recurrent abscess Exam/Procedure requested: Drainage of intra-abdominal abscess. Please obtain cultures and leave drain. Presenting Diagnosis/ Complaint: Blossom Pacheco is a 58 y.o. female with past medical history ofventral hernia, sarcoidosis on prednisone, CHF, and COPD who presented with incarcerated ventral hernia at [facility] in December 2018 with exploratory laparotomy and small bowel resection at that time. Post operative course was complicated by abscess for which patient was admitted to [facility] with percutaneous drainage now with drain removal. Patient represented to [facility] with distention, erythema, and low grade temperature for which a CT of the Abdomen and Pelvis revealed an abscess within the abdominal wall. IR was consulted for percutaneous drainage with catheter placement. Fluid to be sent forgram stain and culture. Past Medical/Surgical History: Patient Active Problem List [...] ??? CHF (congestive heart failure) diag 2017 [facility] ??? Chronic lung disease sarcoidosis ??? Chronic [...] failure 'don't know if it's failure ??? 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 Mental health problem ??? Obstructive sleep apnea diag 2007 ??? Osteoma of ear canal ??? Vertigo balance prob,last fall early Jun. Past Surgical History: Procedure Laterality Date ??? PRG ECHOENCEPHALOGRAPH REAL TIME Left 11/07/2018 ULTRASOUND USE (WRVU 0.63) performed by Crow Galvin Jr., MD at [facility] OR ??? PRG FLUOROSCOPY EXAM UP [facility] 1 HR [facility] PROV N/A 09/26/2018 FLUOROSCOPY (WRVU 0.17) performed by Crow Galvin Jr., MD at [facility] OR ??? PRG FLUOROSCOPY EXAM UP TO 1 HR PHY OR OTH TH CARE PROV N/A 11/07/2018 FLUOROSCOPY (WRVU 0.17) performed by Crow Galvin Jr., MD at [facility] OR ??? PRG US GUIDE INTRAOP Right 09/26/2018 ULTRASONIC GUIDANCE, INTRAOP (WRVU 1.2) performed by Crow Galvin Jr., MD at [facility] OR ? ? PRO CYSTO W URETEROSCOPY &/OR PYELOSCOPY, DX Right 09/26/2018 CYSTOURETEROSCOPY, DIAGNOSTIC (WRVU 5.75) performed by Crow Galvin Jr., MD at [facility] OR ? ? PRO CYSTO W URETEROSCOPY &/OR PYELOSCOPY, DX Left 11/07/2018 CYSTOURETEROSCOPY, DIAGNOSTIC (WRVU 5.75) performed by Crow Galvin Jr., MD at [facility] OR ??? PRO CYSTOSCOPY, INSERT URETERAL STENT Right 07/10/2018 CYSTO, STENT PLACEMENT (WRVU 2.82) performed by Viky Sears MD at [facility] OR ??? PRO CYSTOSCOPY, REMV CALCULUS, COMPLIC Right 09/26/2018 CYSTO, REMOVAL OF STENT, FOREIGN BODY, CALCULUS, COMPLICATED (WRVU 5.2) performed by Crow Galvin MD at [facility] OR ??? PRO CYSTOURETHROSCOPY, URETER CATHETER Right 07/10/2018 CYSTO, RETROGRADE, URETEROPYELOGRAPHY (WRVU 2.37) performed by Viky Sears MD at [facility] OR ??? PRO CYSTOURETHROSCOPY, URETER CATHETER Right 09/26/2018 CYSTO, RETROGRADE, URETEROPYELOGRAPHY, W/PCNL (WRVU 2.37) performed by Crow Galvin Jr., MD at [facility] OR ??? PRO EXPLORATORY OF ABDOMEN N/A 01/05/2019 @EXPLORATORY LAPAROTOMY, WITH/WITHOUT BIOPSY(S) (WRVU 12.54) performed by Ace Henry MD at [facility] OR ??? PRO EXPLORATORY OF ABDOMEN N/A 01/07/2019 @EXPLORATORY LAPAROTOMY, WITH/WITHOUT BIOPSY(S) (WRVU 12.54) performed by Ace Henry MD at [facility] OR ??? PRO FREEING BOWEL ADHESION, ENTEROLYSIS N/A 01/05/2019 @LYSIS OF ADHESIONS, ABD. (WRVU 18.46) performed by Ace Henry MD at [facility] OR ? ? PRO PERCUTANEOUS NEPHROSTOLITHOTOMY/PYELOSTOLITHOTOMY > 2 CM Right 09/26/2018 NEPHROLITHOTOMY, (PCNL) PERCUTANEOUS, OVER 2CM (WRVU 23.5) performed by Crow Galvin Jr., MD at [facility] OR ? ? PRO PERCUTANEOUS NEPHROSTOLITHOTOMY/PYELOSTOLITHOTOMY > 2 CM Left 11/07/2018 NEPHROLITHOTOMY, (PCNL) PERCUTANEOUS, OVER 2CM (WRVU 23.5) performed by Crow Galvin Jr., MD at [facility] OR ? ? PRO [facility] NEPHROSTOMY CATH PRQ NEW ACCESS RS&I Right 09/26/2018 NEPHROSTOMY CATHETER, PERC, INC DX NEPHROSTOGRAM/URETEROGRAM, IMG GUIDANCE (WRVU 4.25) performed byCrow Galvin Jr., MD at [facility] OR ? ? PRO PLDC NEPHROSTOMY CATH PRQ NEW ACCESS RS&I Left 11/07/2018 NEPHROSTOMY CATHETER, PERC, INC DX NEPHROSTOGRAM/URETEROGRAM, IMG GUIDANCE (WRVU 4.25) performed byCrow Galvin Jr., MD at [facility] OR ??? PRO RENAL ENDOSCOPY, TREATMENT Left 11/07/2018 RENAL ENDOSCOPY W\FULG, W\WO\BX, VIA NEPHROSTOMY (WRVU 6.61) performed by Crow Galvin Jr., MD [facility] OR ??? PRO RESECT SMALL INTEST, SINGL RESEC/ANAS N/A 01/07/2019 @BOWEL RESECTION, SMALL INTESTINE SINGLE ANASTOMOSIS (WRVU 20.82) performed by Ace Henry MD at [facility] OR Medications: No current facility-administered medications on file prior to encounter. Current Outpatient Medications on File Prior to Encounter Medication Sig Dispense Refill ??? amitriptyline (ELAVIL) 25 mg Tablet Take [...] ONE TABLET BY MOUTH TWICE A DAY1 Allergies: Anafranil [clomipramine]; Augmentin [amoxicillin-pot clavulanate]; Cis [...] Last attempt to quit: 07/23/2016 Years since quittin.5 ??? Smokeless tobacco: Never Used Substance and [...] file Gets together: Not on file Attends restorationism service: Not on file Active member of [...] Labs: Lab Results Component Value Date WBC 10.3 (H) 02/19/2019 HCT 32.2 (L) 02/19/2019 PLATELET 245 02/19/2019 INR 1.1 01/04/2019 BUN 5 (L) 02/19/2019 BUN 5 (L) 02/19/2019 CREATININE 0.60 (L) 02/19/2019 ALKPHOS 108 (H) 02/19/2019 AST 20 02/19/2019 ALBUMIN 3.8 02/19/2019 BILIDIR 0.2 02/19/2019 BILITOT 0.8 02/19/2019 ALT 11 02/19/2019 PROT 7.6 02/19/2019 Imaging: CT of the Abdomen and Pelvis - 02/19/19 (Outside Study) Physical Exam: Pending (to be performed in angio the day of procedure) ASA: Pending (to be assessed in angio the day of procedure) Mallampati Class: Pending (to be assessed in angio the day of procedure) Assessment: 58 y.o. female with past medical history of ventral hernia, sarcoidosis on prednisone, CHF, and COPD who presented with incarcerated ventral hernia at [facility] in December 2018 with exploratory laparotomy and small bowel resection at that time. Post operative course was complicated by abscess for w hich patient was admitted to [facility] with percutaneous drainage now with drain removal.Patient represented to [facility] with distention, erythema, and low grade temperature for which a CT of the Abdomen and Pelvis revealed an abscess within the abdominal wall. IR was consulted for percutaneous drainage with catheter placement. Plan: Plan Planned procedure: US-Guided Abdominal Wall Drainage Catheter Placement Labs to be performed day of procedure: No labs Sedation: fentanyl only Prophylactic antibiotic : None Contrast: No contrast Additional medications for procedure: Lidocaine Planned access site: Anterior Abdominal Wall -- Inferior Left Aspect of Surgical Incision Position: Supine Consent: Pending 02/20/2019 Alvarez Beauchamp MD - 02/20/2019 1:12 AM EDT [facility] Department of Surgery Admission History and Physical CC: No chief complaint on file. HPI: This is a 58 y.o. female with PMH ventral hernia, sarcoidosis on prednisone, CHF, and COPD who presents with 1 day of tmax 99.8 and weakness. Of note, Ms. Pacheco presented to [facility] on 01/04 from [facility] with acute-onset abdominal pain with n/v and dyspnea, concerning for hypoxic respiratory failure with shock. CT scan at [facility] showed SBO 2/2 incarcerated ventral hernia. She was transferred to [facility] and ultimately taken emergently to the OR for ex lap w/o bowel resection. She returned to the OR on 01/07 for ex lap, resulting in ~80 cm of small bowel resection. She was ultimately discharged with a BIANCA drain in place, which she pulled herself at home when the output slowed to less than 30cc/day for 2 consecutive days. She was discharged to rehab on 01/15. In mid-January, she presented to [facility] with fevers, foul odor and pus emanating from her BIANCA drain site. CT scan at [facility] demonstrated abscess at the BIANCA drain site. She was admitted at [facility], where shewas treated with IV antibiotics and drain placement in LLQ. That drain has since been removed. Tonight, she presents in transfer from [facility] after 1 day of Tmax athome of 99.8 and generalized weakness. She denies n/v, headaches, abdominal pain, chest pain, SOB, hematuria, dysuria, dyschezia, hematochezia. She does endorse diarrhea, although remarks this is her baseline. PMH: Past Medical History: Diagnosis Date ??? Asthma [...] failure 'don't know if it's failure ??? halfway current use of opiate analgesic PCP ??? Mental health problem ??? Obstructive sleep apnea diag 2007 ??? Osteoma of ear canal ??? Vertigo balance prob,last fall early Jun. PSH: Past Surgical History: Procedure Laterality Date ??? PRG ECHOENCEPHALOGRAPH REAL TIME Left 11/07/2018 ULTRASOUND USE (WRVU 0.63) performed by Crow Galvin Jr., MD at [facility] OR ??? PRG FLUOROSCOPY EXAM [facility] 1 HR [facility] PROV N/A 09/26/2018 FLUOROSCOPY (WRVU 0.17) performed by Crow Galvin Jr., MD at [facility] OR ??? PRG FLUOROSCOPY EXAM UP TO 1 HR PHY OR OTH HLTH CARE PROV N/A 11/07/2018 FLUOROSCOPY (WRVU 0.17) performed by Crow Galvin Jr., MD at [facility] OR ??? PRG US GUIDE INTRAOP Right 09/26/2018 ULTRASONIC GUIDANCE, INTRAOP (WRVU 1.2) performed by Crow Galvin Jr., MD at [facility] OR ? ? PRO CYSTO W URETEROSCOPY &/OR PYELOSCOPY, DX Right 09/26/2018 CYSTOURETEROSCOPY, DIAGNOSTIC (WRVU 5.75) performed by Crow Galvin Jr., MD at [facility] OR ? ? PRO CYSTO W URETEROSCOPY &/OR PYELOSCOPY, DX Left 11/07/2018 CYSTOURETEROSCOPY, DIAGNOSTIC (WRVU 5.75) performed by Crow Galvin Jr., MD at [facility] OR ??? PRO CYSTOSCOPY, INSERT URETERAL STENT Right 07/10/2018 CYSTO, STENT PLACEMENT (WRVU 2.82) performed by Viky Sears MD at [facility] OR ??? PRO CYSTOSCOPY, REMV CALCULUS, COMPLIC Right 09/26/2018 CYSTO, REMOVAL OF STENT, FOREIGN BODY, CALCULUS, COMPLICATED (WRVU 5.2) performed by Crow Galvin MD at [facility] OR ??? PRO CYSTOURETHROSCOPY, URETER CATHETER Right 07/10/2018 CYSTO, RETROGRADE, URETEROPYELOGRAPHY (WRVU 2.37) performed by Viky Sears MD at [facility] OR ??? PRO CYSTOURETHROSCOPY, URETER CATHETER Right 09/26/2018 CYSTO, RETROGRADE, URETEROPYELOGRAPHY, W/PCNL (WRVU 2.37) performed by Crow Galvin Jr., MD at [facility] OR ??? PRO EXPLORATORY OF ABDOMEN N/A 01/05/2019 @EXPLORATORY LAPAROTOMY, WITH/WITHOUT BIOPSY(S) (WRVU 12.54) performed by Ace Henry MD at [facility] OR ??? PRO EXPLORATORY OF ABDOMEN N/A 01/07/2019 @EXPLORATORY LAPAROTOMY, WITH/WITHOUT BIOPSY(S) (WRVU 12.54) performed by Ace Henry MD at [facility] OR ??? PRO FREEING BOWEL ADHESION, ENTEROLYSIS N/A 01/05/2019 @LYSIS OF ADHESIONS, ABD. (WRVU 18.46) performed by Ace Henry MD at [facility] OR ? ? PRO PERCUTANEOUS NEPHROSTOLITHOTOMY/PYELOSTOLITHOTOMY > 2 CM Right 09/26/2018 NEPHROLITHOTOMY, (PCNL) PERCUTANEOUS, OVER 2CM (WRVU 23.5) performed by Crow Galvin Jr., MD at [facility] OR ? ? PRO PERCUTANEOUS NEPHROSTOLITHOTOMY/PYELOSTOLITHOTOMY > 2 CM Left 11/07/2018 NEPHROLITHOTOMY, (PCNL) PERCUTANEOUS, OVER 2CM (WRVU 23.5) performed by Crow Galvin Jr., MD at [facility] OR ? ? PRO PLMT NEPHROSTOMY CATH PRQ NEW ACCESS RS&I Right 09/26/2018 NEPHROSTOMY CATHETER, PERC, INC DX NEPHROSTOGRAM/URETEROGRAM, IMG GUIDANCE (WRVU 4.25) performed byCrow Galvin Jr., MD at [facility] OR ? ? PRO PLMT NEPHROSTOMY CATH PRQ NEW ACCESS RS&I Left 11/07/2018 NEPHROSTOMY CATHETER, PERC, INC DX NEPHROSTOGRAM/URETEROGRAM, IMG GUIDANCE (WRVU 4.25) performed byCrow Galvin Jr., MD at [facility] OR ??? PRO RENAL ENDOSCOPY, TREATMENT Left 11/07/2018 RENAL ENDOSCOPY W\FULG, W\WO\BX, VIA NEPHROSTOMY (WRVU 6.61) performed by Crow Galvin Jr., MD [facility] OR ??? PRO RESECT SMALL INTEST, SINGL RESEC/ANAS N/A 01/07/2019 @BOWEL RESECTION, SMALL INTESTINE SINGLE ANASTOMOSIS (WRVU 20.82) performed by Ace Henry MD at [facility] OR [place] MEDICATIONS: No current facility-administered medications on file prior to encounter. Current Outpatient Medications on File Prior to Encounter Medication Sig Dispense Refill ??? amitriptyline (ELAVIL) 25 mg Tablet Take [...] ONE TABLET BY MOUTH TWICE A DAY1 ALLERGIES: Allergies Allergen Reactions ??? Anafranil [Clomipramine] give me the flu ??? Augmentin [Amoxicillin-Pot Clavulanate] Hives and Itching ??? Cis Free Text Allergy Ketamine. CIS - hallucinations ??? Erythromycin Hives and Itching ??? Lidocaine Hcl (Local Anesth.) [Procedural Tray] Itching and Other (See Comments) Lidocaine 2% topical anesthetic jelly. Causes itching and burning ??? Macrobid [Nitrofurantoin Monohyd/M-Cryst] Causes depression ??? Sulfa (Sulfonamide Antibiotics) Hives SOCIAL HISTORY: Social History Socioeconomic History ??? Marital status: [...] Last attempt to quit: 07/23/2016 Years since quittin.5 ??? Smokeless tobacco: Never Used Substance and [...] file Gets together: Not on file Attends restorationism service: Not on file Active member of [...] Social History Narrative ??? Not on file ROS: As stated above, otherwise 10 systems negative Pertinent items are noted in HPI. PHYSICAL EXAM Temp: [37.2 ??C (99 ??F)] Heart Rate: [86] Resp: [18] BP: (144)/(79) SpO2: [97 %] Heart Rate from SpO2: -- Physical Exam: General: No acute distress, AAOx3, cooperative, resting comfortably Neuro: Moving all extremities spontaneously HEENT: Atraumatic, normocephalic. Pupils equal and reactive, extra-ocular muscles intact, no scleralicterus CV: Regular rate and rhythm, +S1/S2, no murmurs appreciated Lungs: Breathing comfortably on RA. CTAB, no wheezing appreciated Abd: Soft, non-tender to palpation, obese. Non-tympanitic. Incision c/d/i. No hepatosplenomegaly. Healed scars at BIANCA drain site in RLQ and drain site in LLQ. Healed midline vertical scar from prior small bowel resection and hernia repair. Induration but no fluctuance over the superior pole of her midline incision without draining sinus. Minimal pain to palpation. MSK: No obvious deformities Ext: No edema, clubbing, or cyanosis. Skin: No rashes, abrasions, or ecchymoses L/T/D: None LABORATORY DATA Recent Labs 02/19/19 2355 WBC 10.3* HGB 10.1* PLATELET 245 NA 140 K 3.5 CL 106 CO2 21* BUN 5* 5* CREATININE 0.60* GLUCOSE 123 LFT's Lab Results Component Value Date Alk Phos 108 (H) 02/19/2019 AST 20 02/19/2019 Albumin 3.8 02/19/2019 Bili, Direct 0.2 02/19/2019 Total Bilirubin 0.8 02/19/2019 ALT 11 02/19/2019 Total Protein 7.6 02/19/2019 Coags Lab Results Component Value Date PTT 26 02/19/2019 MICRO: None IMAGING: Pending re-read of CT abdomen/pelvis from [facility] IMPRESSION: Blossom Pacheco is a 58 y.o. female with a history of ex-lap with SBR c/b BIANCA drain site infection s/p drainage and abx at [facility] who presented to [facility] with 1 day of fevers and weakness. CT scan shows concern for recurrent abscess below her midline incision. She is HDS and non-toxic appearing with minimal tenderness over the area of maximal fluctuance at the superior aspect of her midline incision. She will be admitted with consult for IR drainage in the AM. PLAN: -[facility], Dr. Ace Henry attending -NPO diet (Give Meds) -Reread of CT A/P at [facility] -IVF: LR @ 75/hr -Pain control: Tylenol 650 PO q6 PRN, oxycodone 5mg q8h (usually takes [place] BID at home for chronicback/hip pain) -DVT ppx: B/L SCDs of lower extremities -Dispo: Floor status Paulino Sauer MD Pager [phone] 02/20/2019 1:12 AM Associated attestation - Ace Henry MD - 02/20/2019 2:55 PM EDT Patient with CT scan evidence of recurrent abscess in subcutaneous tissues. Will arrange for IR drainage this admission. If successful resolution, anticipate no further intervention necessary. If recurrent collection(s) however after this drainage attempt, will likely need consideration for operative I&D, VAC dressing(s). Ace Henry MD #[id number] documented in this encounter Nursing Notes Kentrell Meek RN - 02/20/2019 3:46 PM EDT To procedure room Angio 4 via stretcher. Onto table supine All monitors, O2, safety strap in place. Med's per protocol. documented in this encounter Miscellaneous Notes Consult Note - Awilda Ulloa MD - 02/21/2019 3:47 PM EDT Images from the original note were not included. INFECTIOUS DISEASE INITIAL CONSULT NOTE Reason for Consult: Abdominal abscess Consulting Service: General surgery Consulting Attending: No att. providers found Admission Date: 02/19/2019 History of Present Illness: Blossom Pacheco is a 58 y.o. female with a history of sarcoidosis on prednisone, CHF, COPD, recent admission 01/04 for incarcerated ventral hernia status post ex lap and partial small bowel resection01/07, discharged with BIANCA drain 01/15 (pulled the drain herself at home), presented to [facility] 02/03 with fevers, foul odor, and purulent discharge from previous BIANCA drain site, IR placed a new drain 02/03 with the cultures growing enterococcus (ampicillin sensitive), patient presented to [facility] and was transferred to [facility] for further management. The patient was staying at her sister's house in [place] and was doing fairly well after pulling the drain herself at home around 01/20 (when the output was less than 30 cc). On 02/03 she developed fevers, tenderness, a foul odor, and some purulent discharge from the previous drain site. She presented to [facility] and underwent an IR drainage. She was placed on broad-spectrum IV antibiotics for1 day, cultures grew enterococcus. The patient was discharged without a prescription for oral antibiotics but with the drain in place. The patient called [facility] to try and get an antibiotic and was unsuccessful therefore she called [facility] and was prescribed ciprofloxacin x1 week. Patient continued to not feel well and was having low-grade fevers and discomfort at the drain site therefore she presented to [facility], CT abdomen pelvis showed an abscess and the patient was transferred to [facility] for further management. CT abdomen/pelvis 02/20 showed a 4x3x4 abscess in the subcutaneous tissue of the lower anterior abdominal wall along the previous incision site, there was also question of fistulous communication through the anterior abdominal wall. Patient underwent IR drain placement 02/20/2019 with only 7 cc of serosanguineous fluid removed, cultures negative to date. ID consulted for antibiotic recommendations. Review of Systems: Pertinent positives and negatives noted in HPI. Remainder of systems reviewed and found negative. Allergies: Allergies Allergen Reactions ??? Anafranil [Clomipramine] give [...] depression ??? Sulfa (Sulfonamide Antibiotics) Hives Pertinent Medications: Vancomycin Past Medical and Surgical History: Past Medical History: Diagnosis Date ??? Asthma [...] failure 'don't know if it's failure ??? 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 Mental health problem ??? Obstructive sleep apnea diag 2007 ??? Osteoma of ear canal ??? Vertigo balance prob,last fall early Jun. Past Surgical History: Procedure Laterality Date ??? PRG ECHOENCEPHALOGRAPH REAL TIME Left 11/07/2018 ULTRASOUND USE (WRVU 0.63) performed by Crow Galvin Jr., MD at [facility] OR ??? PRG FLUOROSCOPY EXAM UP TO 1 HR PHY OR OTH HLTH CARE PROV N/A 09/26/2018 FLUOROSCOPY (WRVU 0.17) performed by Crow Galvin Jr., MD at [facility] OR ??? PRG FLUOROSCOPY EXAM UP TO 1 HR [facility] PROV N/A 11/07/2018 FLUOROSCOPY (WRVU 0.17) performed by Crow Galvin Jr., MD at [facility] OR ??? PRG US GUIDE INTRAOP Right 09/26/2018 ULTRASONIC GUIDANCE, INTRAOP (WRVU 1.2) performed by Crow Galvin Jr., MD at [facility] OR ? ? PRO CYSTO W URETEROSCOPY &/OR PYELOSCOPY, DX Right 09/26/2018 CYSTOURETEROSCOPY, DIAGNOSTIC (WRVU 5.75) performed by Crow Galvin Jr., MD at [facility] OR ? ? PRO CYSTO W URETEROSCOPY &/OR PYELOSCOPY, DX Left 11/07/2018 CYSTOURETEROSCOPY, DIAGNOSTIC (WRVU 5.75) performed by Crow Galvin Jr., MD at [facility] OR ??? PRO CYSTOSCOPY, INSERT URETERAL STENT Right 07/10/2018 CYSTO, STENT PLACEMENT (WRVU 2.82) performed by Viky Sears MD at [facility] OR ??? PRO CYSTOSCOPY, REMV CALCULUS, COMPLIC Right 09/26/2018 CYSTO, REMOVAL OF STENT, FOREIGN BODY, CALCULUS, COMPLICATED (WRVU 5.2) performed by Crow Galvin MD at [facility] OR ??? PRO CYSTOURETHROSCOPY, URETER CATHETER Right 07/10/2018 CYSTO, RETROGRADE, URETEROPYELOGRAPHY (WRVU 2.37) performed by Viky Sears MD at [facility] OR ??? PRO CYSTOURETHROSCOPY, URETER CATHETER Right 09/26/2018 CYSTO, RETROGRADE, URETEROPYELOGRAPHY, W/PCNL (WRVU 2.37) performed by Crow Galvin Jr., MD at [facility] OR ??? PRO EXPLORATORY OF ABDOMEN N/A 01/05/2019 @EXPLORATORY LAPAROTOMY, WITH/WITHOUT BIOPSY(S) (WRVU 12.54) performed by Aec Henry MD at [facility] OR ??? PRO EXPLORATORY OF ABDOMEN N/A 01/07/2019 @EXPLORATORY LAPAROTOMY, WITH/WITHOUT BIOPSY(S) (WRVU 12.54) performed by Ace Henry MD at [facility] OR ??? PRO FREEING BOWEL ADHESION, ENTEROLYSIS N/A 01/05/2019 @LYSIS OF ADHESIONS, ABD. (WRVU 18.46) performed by Ace Henry MD at [facility] OR ? ? PRO PERCUTANEOUS NEPHROSTOLITHOTOMY/PYELOSTOLITHOTOMY > 2 CM Right 09/26/2018 NEPHROLITHOTOMY, (PCNL) PERCUTANEOUS, OVER 2CM (WRVU 23.5) performed by Crow Galvin Jr., MD at [facility] OR ? ? PRO PERCUTANEOUS NEPHROSTOLITHOTOMY/PYELOSTOLITHOTOMY > 2 CM Left 11/07/2018 NEPHROLITHOTOMY, (PCNL) PERCUTANEOUS, OVER 2CM (WRVU 23.5) performed by Corw Galvin Jr., MD at [facility] OR ? ? PRO PLMT NEPHROSTOMY CATH PRQ NEW ACCESS RS&I Right 09/26/2018 NEPHROSTOMY CATHETER, PERC, INC DX NEPHROSTOGRAM/URETEROGRAM, IMG GUIDANCE (WRVU 4.25) performed byCrow Galvin Jr., MD at [facility] OR ? ? PRO PLMT NEPHROSTOMY CATH PRQ NEW ACCESS RS&I Left 11/07/2018 NEPHROSTOMY CATHETER, PERC, INC DX NEPHROSTOGRAM/URETEROGRAM, IMG GUIDANCE (WRVU 4.25) performed Crow Snyder Jr., MD at [facility] OR ??? PRO RENAL ENDOSCOPY, TREATMENT Left 11/07/2018 RENAL ENDOSCOPY W\FULG, W\WO\BX, VIA NEPHROSTOMY (WRVU 6.61) performed by Crow Galvin Jr., MD [facility] MAIN OR ??? PRO RESECT SMALL INTEST, SINGL RESEC/ANAS N/A 01/07/2019 @BOWEL RESECTION, SMALL INTESTINE SINGLE ANASTOMOSIS (WRVU 20.82) performed by Ace Henry MD at [facility] OR Prior To Admission Medications: No medications prior to admission. Inpatient Scheduled Medications: ??? [START ON 02/22/2019] Vancomycin Level - MAR Order Reminder NOT APPLICABLE Once ??? amitriptyline 25 mg Oral Nightly ??? gabapentin 600 mg Oral TID ??? carvedilol 3.125 mg Oral BID WC ??? insulin lispro 2-8 Units Subcutaneous Q4H BERT ??? heparin (Porcine) 5,000 Units Subcutaneous Q8H BERT ??? atorvastatin 10 mg Oral QPM ??? acetaminophen 650 mg Oral Q6H BERT ??? vancomycin 2 g Intravenous Q12H ??? sodium chloride 0.9 % (flush) 5 mL Intravenous BID Family History: Family History Problem Relation Age of Onset ??? Cancer Father ??? Anesthesia Reaction Father ??? Cancer Sister Social History and Habits: Social History Socioeconomic [...] Last attempt to quit: 07/23/2016 Years since quittin.5 ??? Smokeless tobacco: Never Used Substance and [...] file Gets together: Not on file Attends restorationism service: Not on file Active member of [...] Social History Narrative ??? Not on file Physical Exam: Last value Range last 24 hrs Temperature Temp: 36.5 ??C (97.7 ??F) Temp: [36.3 ??C (97.3 ??F)-37.1 ??C (98.8 ??F)] Heart Rate Heart Rate: 72 Heart Rate: -- Blood Pressure BP: 138/76 BP: (118-145)/(55-76) Respiratory Rate Resp: 16 Resp: [16-19] SpO2 SpO2: 100 % SpO2: [96 %-100 %] General: NAD, resting comfortably in bed, pleasant and interactive HEENT: no scleral icterus, moist mucous membranes CVS: regular rate and rhythm Pulm: normal work of breathing Abd: soft, non-tender, midline incision well healed with palpable area of induration at inferior aspect of incision. Prior BIANCA drain site and IR drain site without drainage.??IR drain with serosanguinous output.?? : No elloitt Skin: warm and dry Ext: no cyanosis or edema Neuro: CN II-XII grossly intact, moving all four extremities spontaneously Laboratory: Recent Labs 02/21/19 0605 02/19/19 2355 WBC 6.8 10.3* HGB 9.2* 10.1* HCT 29.0* 32.2* PLATELET 177 245 Recent Labs 02/21/19 0605 02/19/19 2355 NA 139 140 K 3.6 3.5 CL 106 106 CO2 22 21* BUN 5* 5* 5* CREATININE 0.57* 0.60* Recent Labs 02/19/19 2355 AST 20 ALT 11 ALKPHOS 108* BILITOT 0.8 BILIDIR 0.2 No results found for: CRP No results found for: SEDRATE Component Value Date/Time SPGRAVITYUA >1.035 (H) 02/19/2019 222 PHUADIP 6.0 02/19/2019 2220 PROTEINUADIP Negative 02/19/2019 2220 GLUCOSEU Negative 02/19/2019 222 KETONESUA Negative 02/19/2019 222 UROBILIUADIP Normal 02/19/2019 222 BLOODUADIP Negative 02/19/2019 2220 NITRATEUA Negative 02/19/2019 2220 LEUKOESTERUA Small (A) 02/19/2019 2220 WBCUA 20 (H) 02/19/2019 2220 BILIRUBINUA Negative 02/19/2019 2220 Microbiology: 02/03/2019: Abscess culture: Enterococcus faecalis Abscess culture 02/21/2019: No growth to date Gram stain few neutrophils, no microorganisms [facility] blood cultures 02/19/19: no growth to date Radiology/Studies/Procedures: CT abdomen/pelvis 02/20/19: IMPRESSION 4.6 x 2.6 x 3.8 cm abscess in the subcutaneous tissue of the lower anterior abdominal wall along the incision site with a large amount of surrounding inflammatory change. Deep to this subcutaneous abscess, just beneath the anterior abdominal wall is a small bowel anastomosis with surrounding inflammatory change. The possibility of a fistulous communication through the anterior abdominal wall should be considered. Assessment: Blossom Pacheco is a 58 y.o. female with a history of sarcoidosis on prednisone, CHF, COPD, recent admission 01/04 for incarcerated ventral hernia status post ex lap and partial small bowel resection01/07, discharged with BIANCA drain 01/15 (pulled the drain herself at home), presented to [facility] 02/03 with fevers, foul odor, and purulent discharge from previous BIANCA drain site, IR placed a new drain 02/03 with the cultures growing enterococcus (ampicillin sensitive), patient presented to [facility] and was transferred to [facility] for further management. The patient underwent CT abdomen/pelvis 02/20 which showed a 4x3x4 abscess in the subcutaneous tissue of the lower anterior abdominal wall along the previous incision site, there was also question of fistulous communication through the anterior abdominal wall. Patient underwent IR drain placement 02/20/2019 with only 7 cc of serosanguineous fluid removed, cultures negative to date, Gram stain negative, therefore we will treat the enterococcus faecalis (ampicillin sensitive) that grew on the previous culture on 02/03 in [place]. At this point given the fact that there is no definitive evidence for fistula and the fact the patient is a poor surgical candidate then the plan is medical management with antibiotics for the next 2 weeks. Given the risk of placing the patient on the Linezolid (decreasing her cell counts as well as serotonin syndrome as she is on amitriptyline) we discussed trying Augmentin. The patient has a documented allergy to Augmentin however she states her reaction was hives that did not really form the individual bumps but instead caused dry and itchy skin, and this allergy was many years ago. The patient is willing to take Augmentin. She will return to general surgery clinic on 02/28/2019 and at that time get a repeat CBC. She will also get a sinogram in 2 weeks to evaluate for residual cavity and ensure no fistulous connection. Recommendations: -Blood cultures from [facility] 02/19: negative -Augmentin 875/125 mg twice daily x14 days -Patient instructed to call if she develops any evidence of rash -Repeat CBC at follow-up appointment 02/28 -Sinogram in 2 weeks to evaluate for residual cavity and ensure no fistulous connection. -We will follow the patient's cultures This patient was seen and discussed with ID attending Dr. Barth. Recommendations discussed withprimary treating team. ID consult service will sign off. Do not hesitate to page us at 2020 with any further questions or concerns. Awilda Ulloa MD Infectious Disease Fellow Pager #[phone] Associated attestation - Leon Barth MD - 02/21/2019 8:14 PM EDT Attending??Attestation:??I saw and examined this patient. I have reviewed and agree with the history, findings, assessment, and plan of care as documented in Dr. Ulloa'??note. The assessment and planwere formulated in discussion with me. Leon Barth MD Plan of Care - Alon Shi RN - 02/21/2019 4:56 AM EDT Problem: Patient Care Overview Goal: Plan of Care Review 02/21/19 9135 Coping/Psychosocial Plan Of Care Reviewed With patient Plan of Care Review Progress progress toward functional goals as expected OUTCOME EVALUATION NOTE: OUTCOME SUMMARY: Patient with no complaints overnight. Scant drainage from drain. LCTA, On RA. Vancomycin per orders. PLAN MOVING FORWARD: IV antibiotics, Cultures pending. INDIVIDUALIZED FALL PREVENTION INTERVENTIONS: Patient-specific fall risk factors per assessment: [current deficits]: IV lines, Neuropathy in B/L feet. Assistance [level of assistance required for transfers and ambulation]: SBA with cane Supervision [direct monitoring required during toileting and ADLs]: Eyes On Surveillance [continuous indirect monitoring]: N/A Patient-specific fall prevention interventions for sensory deficits provided, if applicable: Call leigh, cane in reach, Low bed, Non-slip footwear. CPG GOAL OUTCOME EVALUATION: Ongoing Initial Assessments - Maddie Perales RN - 02/20/2019 8:58 AM EDT Office of Care Management Initial Assessment Maddie Perales RN reviewed record and discussed patient with Care Team. Source of Information: Cardiology Team, bedside nurse, chart review, interviewing patient. Introduced self/reviewed role; services accepted. Reason for Hospitalization: Reason for Admission as Stated by Patient: fever <principal problem not specified> Per H&P note by Dr. Polk : Blossom Pacheco is a 58 y.o. female with past medical history ofventral hernia, sarcoidosis on prednisone, CHF, and COPD who presented with incarcerated ventral hernia at [facility] in December 2018 with exploratory laparotomy and small bowel resection at that time. Post operative course was complicated by abscess for which patient was admitted to [facility] with percutaneous drainage now with drain removal. Patient represented to [facility] with distention, erythema, and low grade temperature for which a CT of the Abdomen and Pelvis revealed an abscess within the abdominal wall. IR was consulted for percutaneous drainage with catheter placement. Fluid to be sent forgram stain and culture. Past Medical History: Diagnosis Date ??? Asthma [...] failure 'don't know if it's failure ??? 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 Mental health problem ??? Obstructive sleep apnea diag 2007 ??? Osteoma of ear canal ??? Vertigo balance prob,last fall early Jun. Hospitalizations Within the Past 30 Days: 01/04/2019 [facility] admission to hospital medicine Anticipated Length Of Stay (If known): TBD Current Decision-Making Capacity: Patient is A&Ox4 and able to make all medical decisions Advance Care Planning: Full Code in EPIC. Lists sister Mona as the primary DPOAH.. Current Coping/Education/Information Needs: Current coping questions and concerns have been addressed. Current Functional Ability: assist of staff Functional Status Prior to Admission: independent with ADLs, drives. Uses a cane when mobilizing. Home Environment: lives in apartment on the first floor, 4 steps to enter [address] [facility] [id number] Social & Family Supports/Community Resources: Extended Emergency Contact Information Primary Emergency Contact: АндрейjaylagaelMaria L Relation: Friend Secondary Emergency Contact: Mona Pacheco Address: [place] [address] Mobile Relation: Sibling Health/Prescription Coverage: Primary Insurance: MEDICARE Secondary Insurance: N/A Prescription Coverage: Yes Preferred [facility]acy: [facility], [place] - [address] [facility] [address], [place] [address] [facility] - [facility] [place] - [address] [facility] [address] [facility] [address] Other: none Primary Care Provider: Albert Zuleta MD [phone] Patient/Caregiver Goals of Treatment: return to previous level of function Potential Needs for Transition of Care: Rehab/SNF: no Home Health: no DME: patient has a cane, a commode, a grabber in each room and a sock helper Transportation: rural community transport, ride confirmed for 10:00 tomorrow Other: none Anticipated Barriers to Discharge/Special Considerations: none vs anticipated barriers to arise as hospitalization continues. Assessment: patient is admitted to Surgery service for drainage of abscess, anticipated to dischargehome upon completion of hospital course, no service needs anticipated. Plan: A member of the Care Management team will continue to monitor progress, follow for continuity of care and assist with transition of care planning. Maddie Perales, RN Nurse Mortgage Assistant Pager [phone] Plan of Care - Alon Shi RN - 02/20/2019 4:53 AM EDT Problem: Patient Care Overview Goal: Plan of Care Review 02/20/19 2008 Coping/Psychosocial Plan Of Care Reviewed With patient Plan of Care Review Progress progress toward functional goals as expected OUTCOME EVALUATION NOTE: OUTCOME SUMMARY: Patient slept intermittently overnight. SR on monitor, On RA. IVF infusing per orders. PLAN MOVING FORWARD: Patient NPO for possible surgical intervention. INDIVIDUALIZED FALL PREVENTION INTERVENTIONS: Patient-specific fall risk factors per assessment: [current deficits]: IV pole/lines, Pulse Ox, ECG wires. Assistance [level of assistance required for transfers and ambulation]: SBA Supervision [direct monitoring required during toileting and ADLs]: Eyes On Surveillance [continuous indirect monitoring]: Telemetry, Pulse Ox Patient-specific fall prevention interventions for sensory deficits provided, if applicable: Call leigh in reach, Low bed, Non-slip footwear. CPG GOAL OUTCOME EVALUATION: Ongoing documented in this encounter Plan of Treatment Upcoming Encounters Date Type Specialty Care Team Description 03/15/2022 Office Visit Neurology Ryann Barfield APRN [facility] [address] [place] [address] 03/23/2022 Appointment Radiology Hailey Mcclendon MD [facility] [address] [place] [address] 03/23/2022 Laboratory Appointment Lab 03/23/2022 Office Visit Gastroenterology Hailey Mcclendon MD [facility] [address] [place] [address] 05/23/2022 Procedure visit Maxillofacial Surgery Corby Montes MD [facility] [address] [place] [address] Scheduled Orders Name Type Priority Associated Diagnoses Order S chedule Film Library- Imaging Storage Routine Once PRN (f or Radiant Storage Only CT Only use) for 1 Abdomen & Pelvis Occurrences starting 02/20/2019 unti l 02/20/2019, 1 completed Film Library- Imaging Storage Routine Once PRN (f or Radiant Storage Only CT Only use) for 1 Abdomen & Pelvis Occurrences starting 02/20/2019 unti l 02/20/2019, 1 completed documented as of this encounter Procedures Procedure Name Priority Date/Time Associated Comments Diagnosis POCT GLUCOSE Routine 02/21/2019 3:17 PM Results f or this EDT procedure are i n the results section. POCT GLUCOSE Routine 02/21/2019 11:38 Results for this AM EDT procedure are i n the results section. POCT GLUCOSE Routine 02/21/2019 7:41 AM Results f or this EDT procedure are i n the results section. HEMOGRAM Routine 02/21/2019 6:05 AM Results f or this EDT procedure are i n the results section. DIFFERENTIAL, Routine 02/21/2019 6:05 AM Results for this AUTOMATED EDT procedure are i n the results section. CBC (WITH DIFF) Routine 02/21/2019 6:05 AM EDT PHOSPHORUS Routine 02/21/2019 6:05 AM Results f or this EDT procedure are i n the results section. MAGNESIUM Routine 02/21/2019 6:05 AM Results f or this EDT procedure are i n the results section. BASIC METABOLIC PANEL Routine 02/21/2019 6:05 AM Results for this (NON-FASTING) EDT procedure are in the results section. POCT GLUCOSE Routine 02/21/2019 4:13 AM Results f or this EDT procedure are i n the results section. POCT GLUCOSE Routine 02/21/2019 12:16 Results for this AM EDT procedure are i n the results section. POCT GLUCOSE Routine 02/20/2019 8:03 PM Results f or this EDT procedure are i n the results section. POCT GLUCOSE Routine 02/20/2019 4:47 PM Results f or this EDT procedure are i n the results section. IR ALL DRAINAGE Routine 02/20/2019 4:27 PM Result s for this PROCEDURES EDT procedure are i n the results section. ANAEROBIC CULTURE Routine 02/20/2019 3:33 PM Resu lts for this EDT procedure are i n the results section. BODY FLUID CULTURE, Routine 02/20/2019 3:33 PM AEROBIC & ANAEROBIC EDT BODY FLUID CULTURE, Routine 02/20/2019 3:33 PM Re sults for this AEROBIC EDT procedure are i n the results section. POCT GLUCOSE Routine 02/20/2019 3:14 PM Results f or this EDT procedure are i n the results section. POCT GLUCOSE Routine 02/20/2019 11:56 Results for this AM EDT procedure are i n the results section. POCT GLUCOSE Routine 02/20/2019 9:45 AM Results f or this EDT procedure are i n the results section. REQUEST FOR 2ND READ Routine 02/20/2019 1:28 AM R esults for this CT ABDOMEN AND PELVIS EDT proced ure are in the results section. HEMOGRAM Routine 02/19/2019 11:55 Results for this PM EDT procedure are i n the results section. DIFFERENTIAL, Routine 02/19/2019 11:55 Results fo r this AUTOMATED PM EDT procedure are i n the results section. APTT Routine 02/19/2019 11:55 Results for this PM EDT procedure are i n the results section. CBC (WITH DIFF) Routine 02/19/2019 11:55 PM EDT BUN Routine 02/19/2019 11:55 Results for this PM EDT procedure are i n the results section. PHOSPHORUS Routine 02/19/2019 11:55 Results for this PM EDT procedure are i n the results section. MAGNESIUM Routine 02/19/2019 11:55 Results for this PM EDT procedure are i n the results section. HEPATIC FUNCTION Routine 02/19/2019 11:55 Results for this PANEL PM EDT procedure are i n the results section. BASIC METABOLIC PANEL Routine 02/19/2019 11:55 Re sults for this (NON-FASTING) PM EDT procedure are in the results section. URINALYSIS Routine 02/19/2019 10:20 Results for this MICROSCOPIC EXAM PM EDT procedure a re in the results section. URINE HOLD Routine 02/19/2019 10:20 Results for this PM EDT procedure are i n the results section. URINALYSIS WITH Routine 02/19/2019 10:20 Results for this REFLEX CULTURE PM EDT procedure are in the results section. URINE CULTURE Routine 02/19/2019 10:20 Results fo r this PM EDT procedure are i n the results section. FILM LIBRARY STORAGE Routine 02/07/2019 12:00 Res ults for this ONLY CT ABDOMEN AND AM EDT procedur e are in PELVIS the results section. FILM LIBRARY STORAGE Routine 02/03/2019 12:00 Res ults for this ONLY CT ABDOMEN AND AM EDT procedur e are in PELVIS the results section. documented in this encounter [...] resection. Patient had abscess drain placed at [facility] which was removed by her surgeon. [...] ?? Ace Henry MD IMG IR ORDERABLES POCT Glucose (02/21/2019 3:17 PM EDT) athologist Signature POC Glucose 140 65 - 199 [facility] mg/dL [facility] Comment: Supplemental ranges: <140 mg/dL before meals <180 mg/dL all other times of the day Specimen Anatomical Collection Method Collection Time Receive d Time (Source) Location / / Volume Laterality Blood specimen 02/21/2019 3:17 PM 019 3:17 (specimen) EDT PM EDT Ace Henry MD POINT OF CARE TEST ORDERABLE S Performing Organization Address City/State/[place] [address] POCT Glucose (02/21/2019 11:38 AM EDT) athologist Signature POC Glucose 127 65 - 199 [facility] mg/dL [facility] Comment: Supplemental ranges: <140 mg/dL before meals <180 mg/dL all other times of the day Specimen Anatomical Collection Method Collection Time Receive d Time (Source) Location / / Volume Laterality Blood specimen 02/21/2019 11:38 9 (specimen) AM EDT 11:38 AM EDT Ace Henry MD POINT OF CARE TEST ORDERABLE S Performing Organization Address City/State/ZIP Code Phon e Number [address] POCT Glucose (02/21/2019 7:41 AM EDT) athologist Signature POC Glucose 160 65 - 199 [facility] mg/dL [facility] LABORATORY Comment: Supplemental ranges: <140 mg/dL before meals <180 mg/dL all other times of the day Specimen Anatomical Collection Method Collection Time Receive d Time (Source) Location / / Volume Laterality Blood specimen 02/21/2019 7:41 AM 019 7:41 (specimen) EDT AM EDT Ace Henry MD POINT OF CARE TEST ORDERABLE S Performing Organization Address City/[facility]/ZIP Code Phon e Number [address] Differential, Automated (02/21/2019 6:05 AM EDT) athologist Signature Neutrophils % 55.8 % [facility] LABORATORY Neutr Abs (ANC) 3.82 1.70 - [facility] 6.10 [facility] x10(3)/[facility] LABORATORY Lymphocytes % 33.7 % [facility] LABORATORY Lymphocytes Abs 2.3 0.9 - 3.2 [facility] x10(3)/[facility] LABORATORY Monocytes % 8.3 % [facility] LABORATORY Monocyte Abs 0.6 0.3 - 0.9 [facility] x10(3)/[facility] LABORATORY Eosinophils % 1.8 % [facility] LABORATORY Eosinophils Abs 0.1 0.0 - 0.4 [facility] x10(3)/[facility] LABORATORY Basophils % 0.3 % [facility] LABORATORY Basophils Abs 0.0 0.0 - 0.1 [facility] x10(3)/[facility] LABORATORY Immature Gran % 0.10 % [facility] LABORATORY Comment: Immature granulocytes(IG's)percentage an d absolute count will include metamyelocytes, myelocytes, and promyelo cytes. Blood smears from CBCs yielding IG's will be scanned manually for concor danshabana. If this scan disagrees with the automated IG or if promyelocytes are not ed, a manual differential will be performed. Irina Gran Abs 0.01 0.00 - 0.04 x10(3)/[facility] LABORATORY Specimen Anatomical Collection Method Collection Time Receive d Time (Source) Location / / Volume Laterality Blood specimen 02/21/2019 6:05 AM 019 6:17 (specimen) EDT AM EDT Resulting Agency Comment Spec In Lab Jaxson Ramos MD HEMATOLOGY ORDERABLES Performing Organization Address City/State/[place] [address] (ABNORMAL) Hemogram (02/21/2019 6:05 AM EDT) Analysis Performed At Patho logist Time Signature WBC 6.8 4.0 - 9.5 [facility] x10(3)/[facility] LABORATORY RBC 3.16 (L) 4.00 - [facility] 5.21 [facility] x10(6)/[facility] LABORATORY Hemoglobin 9.2 (L) 11.7 - [facility] 15.5 gm/dL [facility] LABORATORY Hematocrit 29.0 (L) 35.7 [facility] 45.8 % [facility] LABORATORY MCV 91.8 82.6 - [facility] 94.4 [facility] LABORATORY MCH 29.[address] [facility] 32.0 pg [facility] LABORATORY MCHC 31.7 31.7 - [facility] 35.0 gm/dL [facility] LABORATORY Platelets 177 145 - 357 [facility] x10(3)/[facility] LABORATORY RDWSD 44.9 37.0 - [facility] 46.0 [facility] LABORATORY RDWCV 13.2 11.5 - [facility] 14.1 % [facility] LABORATORY MPV 10.4 7.6 - 12.9 [facility] LABORATORY nRBC % Auto 0.0 % [facility] LABORATORY nRBC Abs Auto 0.000 0.000 - [facility] 0.000 [facility] x10(3)/[facility] LABORATORY Specimen Anatomical Collection Method Collection Time Receive d Time (Source) Location / / Volume Laterality Blood specimen 02/21/2019 6:05 AM 019 6:17 (specimen) EDT AM EDT Resulting Agency Comment Spec In Lab Jaxson Ramos MD HEMATOLOGY ORDERABLES Performing Organization Address City/[facility]/ZIP Code Phon e Number [address] Phosphorus (02/21/2019 6:05 AM EDT) athologist Signature Phosphorus 2.9 2.5 - 4.5 [facility] mg/dL [facility] LABORATORY Specimen Anatomical Collection Method Collection Time Receive d Time (Source) Location / / Volume Laterality Blood specimen 02/21/2019 6:05 AM 019 6:17 (specimen) EDT AM EDT Resulting Agency Comment Spec In Lab Ace Henry MD CHEMISTRY ORDERABLES Performing Organization Address City/[facility]/ZIP Code Phon e Number [address] (ABNORMAL) Magnesium (02/21/2019 6:05 AM EDT) athologist Signature Magnesium 0.64 (L) 0.69 - 1.07 [facility] mmol/L [facility] LABORATORY Specimen Anatomical Collection Method Collection Time Receive d Time (Source) Location / / Volume Laterality Blood specimen 02/21/2019 6:05 AM 019 6:17 (specimen) EDT AM EDT Resulting Agency Comment Spec In Lab Ace Henry MD CHEMISTRY ORDERABLES Performing Organization Address City/[facility]/ZIP [facility] [place] [address] (ABNORMAL) Basic Metabolic Panel (non-fasting) (02/21/2019 6:05 AM EDT) athologist Signature Glucose Lvl 129 65 - [address] [facility]dL [facility] LABORATORY Comment: Diabetes: >=200 mg/dL plus symp toms BUN 5 (L) 8 - 18 mg/dL [facility] LABORATORY Creatinine 0.57 (L) 0.70 - 1.20 mg/dL [facility] LABORATORY Sodium 139 135 - 145 mmol/L [facility] LABORATORY Potassium 3.6 3.5 - 5.0 mmol/L [facility] LABORATORY Comment: Please note: ??Patients with WBC >100,00 0 may have falsely elevated Potassium levels. ??For accurate Potassium quantif ication in these patients send serum separator tube (gold top) for subsequent determinations. ??Contact the Clinical Chemistry Laboratory if there are any qu estions. Chloride 106 98 - 107 mmol/L [facility] LABORATORY CO2 22 22 - 31 mmol/L [facility] LABORATORY Anion Gap 11 5 - 15 mmol/L [facility] LABORATORY Calcium 10.2 8.5 - 10.5 mg/dL [facility] LABORATORY Estimated GFR 101 >=60 mL/min/1.73 m?? [facility] LABORATORY Comment: The eGFR was calculated using the CKD-EP I equation. As with all creatinine based estimates of kidney function, eGFR values calculated with the CKD-EPI equation are not accurate in patients wi th acute kidney failure, extremes of body mass or the acutely ill. [email or web address] eGFR 118 >=60 mL/min/1.73 m?? [facility] LABORATORY Comment: The eGFR was calculated using the CKD-EP I equation. As with all creatinine based estimates of kidney function, eGFR values calculated with the CKD-EPI equation are not accurate in patients wi th acute kidney failure, extremes of body mass or the acutely ill. [email or web address] Specimen Anatomical Collection Method Collection Time Receive d Time (Source) Location / / Volume Laterality Blood specimen 02/21/2019 6:05 AM 019 6:17 (specimen) EDT AM EDT Resulting Agency Comment Spec In Lab Ace Henry MD CHEMISTRY ORDERABLES Performing Organization Address City/State/[place] [address] POCT Glucose (02/21/2019 4:13 AM EDT) athologist Signature POC Glucose 120 65 - 199 [facility] mg/dL [facility] LABORATORY Comment: Supplemental ranges: <140 mg/dL before meals <180 mg/dL all other times of the day Specimen Anatomical Collection Method Collection Time Receive d Time (Source) Location / / Volume Laterality Blood specimen 02/21/2019 4:13 AM 019 4:13 (specimen) EDT AM EDT Ace Henry MD POINT OF CARE TEST ORDERABLE S Performing Organization Address City/State/ZIP Code Phon e Number [address] POCT Glucose (02/21/2019 12:16 AM EDT) P athologist Signature POC Glucose 125 65 - 199 [place] mg/dL [facility] LABORATORY Comment: Supplemental ranges: <140 mg/dL before meals <180 mg/dL all other times of the day Specimen Anatomical Collection Method Collection Time Receive d Time (Source) Location / / Volume Laterality Blood specimen 02/21/2019 12:16 9 (specimen) AM EDT 12:16 AM EDT Ace Henry MD POINT OF CARE TEST ORDERABLE S Performing Organization Address City/State/ZIP Code Phon e Number [address] POCT Glucose (02/20/2019 8:03 PM EDT) P athologist Signature POC Glucose 142 65 - 199 [place] mg/dL [facility] LABORATORY Comment: Supplemental ranges: <140 mg/dL before meals <180 mg/dL all other times of the day Specimen Anatomical Collection Method Collection Time Receive d Time (Source) Location / / Volume Laterality Blood specimen 02/20/2019 8:03 PM 019 8:03 (specimen) EDT PM EDT Ace Henry MD POINT OF CARE TEST ORDERABLE S Performing Organization Address City/State/ZIP Code Phon e Number [address] POCT Glucose (02/20/2019 4:47 PM EDT) P athologist Signature POC Glucose 131 65 - 199 [place] mg/dL [facility] LABORATORY Comment: Supplemental ranges: <140 mg/dL before meals <180 mg/dL all other times of the day Specimen Anatomical Collection Method Collection Time Receive d Time (Source) Location / / Volume Laterality Blood specimen 02/20/2019 4:47 PM 019 4:47 (specimen) EDT PM EDT Ace Henry MD POINT OF CARE TEST ORDERABLE S Performing Organization Address City/State/[place] [address] IR All Drainage Procedures (02/20/2019 4:27 PM EDT) Anatomical Region Laterality Modality X-Ray Angiography Specimen (Source) Anatomical Location Collection Method / Collectio n Time Received Time / Laterality Volume Addenda Addendum by Corby Flor MD on 2018 4:43 PM EDT Received local anesthesia only Impressions 03/03/2019 3:37 PM EDT : Technically successful drain placement. Recommend: gravity drainage, flush with 5-10 cc NS q 8h Attending: ?? I, Dr. Flor, was present throughout the procedure. I was present during the intraservice ti me as documented by the IR Nurse. ?? Narrative 03/03/2019 3:37 PM EDT IR PROCEDURE NOTE ??: ?? US-guided abscess drain placement ?? INDICATION : abscess 58 y.o. female with past medical history of ventral hernia, sarcoidosis on prednisone, CHF, and COPD??who presented with incarcerated ventral hernia at [facility] in December 2018 with exploratory la parotomy and small bowel resection at that time. ??Post operative course wa s complicated by abscess for which patient was admitted to [facility] with percutaneous drainage now with drain removal. ??Patient repres ented to [facility] with distention, erythema, and low grade temperature for which a CT of the Abdomen and Pelvis revealed an abscess within the ab dominal wall. ??IR was consulted for percutaneous drainage with catheter placement. TECHNIQUE: After discussing risks (inclu ding infection and hemorrhage), and benefits, patient consented to the p rocedure. ??Due to the painful nature of the procedure, split doses of fentanyl and versed were administered by the IR nurse during cont inuous monitoring of pulse, blood pressure and oxygen saturation. ?? Lesion was localized with US. ??After st erile preparation of the overlying skin, 7 cc 1% lidocaine SQ was administe red for anesthesia, and an 18 ga needle was advanced under CT guidance in to the collection. ??Over an .035 guidewire, tract was dilated to 10 Fr, a nd a 10 Fr locking pigtail drain was placed. ??Catheter was secured to th e skin and left to gravity drainage. ??Post-procedure US images wer e obtained. ??Patient tolerated the procedure well. ??There were no immediat e complications. Contrast : ??0 cc Omnipaque 350. ? E BL : ??0 cc. FINDINGS: 3 x 4 cm low echogenicity ante rior abdominal wall fluid collection. ??Purulent fluid aspirated, submitted for culture. Ace Henry MD IMG IR ORDERABLES Anaerobic Culture (02/20/2019 3:33 PM EDT) [facility] [employer] Method Time Signature Anaerobic No anaerobic [facility] Culture organisms [facility] LABORATORY Specimen Anatomical Collection Method Collection Time Receive d Time (Source) Location / / Volume Laterality Fluid sample 02/20/2019 3:33 PM 9 5:12 (specimen) EDT PM EDT Comment: ABDOMINAL WALL ABSCESS Resulting Agency Comment Spec In Lab Jaxson Ramos MD MICROBIOLOGY - GENERAL ORDER ELINA Performing Organization Address City/State/Z[place] [address] (ABNORMAL) Body Fluid Culture, Aerobic (02/20/2019 3:33 PM EDT) Component Value Ref Test Analysis Performed At [facility] Range Method Time Signature Body Fluid Rare Enterococcus faecalis MA RY Culture Susceptibility results have changed [place] Results called to and read back by Dr. Barth, ??02/28 12:50:33 [facility] Note: This is a corrected report [facility]OSPITAL Previously reported as: J LUIS QUINTERO Rare Staphylococcus aureus Results called to and read back by Jaxson Ramos ??02/23 11:21:12 (A) Gram Stain Few Neutrophils seen [place] No microorganisms seen. [facility] (A) [facility] LABORATORY Organism Enterococcus [place] faecalis (A) [facility] LABORATORY Organism Staphylococcus [place] aureus (A) [facility] LABORATORY Specimen Anatomical Collection Method Collection Time Receive d Time (Source) Location / / Volume Laterality Fluid sample 02/20/2019 3:33 PM 9 5:12 (specimen) EDT PM EDT Comment: ABDOMINAL WALL ABSCESS Resulting Agency Comment Spec In Lab Organism Antibiotic Method Susceptibility Enterococcus faecalis Ampicillin MICROSCAN METHOD Sensitive Comment: Corrected from R on 02/28/19 12:12:32 EDT by Imani Murrieta. Corrected from R on 02/28/19 12:10:25 EDT by Akshat Faulkner Corrected from R on 02/28/19 11:49:08 EDT by Akshat Faulkner Susceptibility implies high dose therapy. ??Penicillin or Ampicillin combined with an aminoglycoside is re commended for serious infections. Synergy is predicted for Gentamicin. Enterococcus faecalis Erythromycin MICROSCAN METHOD Resistant Enterococcus faecalis Gentamicin 500 MICROSCAN METHOD Sensitive Comment: Susceptibility implies high dose therapy. ??Penicillin or Ampicillin combined with an aminoglycoside is re commended for serious infections. Synergy is predicted for Gentamicin. Enterococcus faecalis Penicillin MICROSCAN METHOD Sensitive Comment: Corrected from R on 02/28/19 12:12:32 EDT by Imani Murrieta. Corrected from R on 02/28/19 12:10:25 EDT by Akshat Faulkner Enterococcus faecalis Streptomycin 1000 MICROSCAN METHOD Sensiti ve Enterococcus faecalis Vancomycin MICROSCAN METHOD Sensitive Jaxson Ramos MD MICROBIOLOGY - GENERAL ORDER ELINA Performing Organization Address City/State/Z[place] [address] POCT Glucose (02/20/2019 3:14 PM EDT) P athologist Signature POC Glucose 115 65 - 199 [facility] mg/dL [facility] LABORATORY Comment: Supplemental ranges: <140 mg/dL before meals <180 mg/dL all other times of the day Specimen Anatomical Collection Method Collection Time Receive d Time (Source) Location / / Volume Laterality Blood specimen 02/20/2019 3:14 PM 019 3:14 (specimen) EDT PM EDT Ace Henry MD POINT OF CARE TEST ORDERABLE S Performing Organization Address City/State/Z[place] [address] POCT Glucose (02/20/2019 11:56 AM EDT) P athologist Signature POC Glucose 136 65 - 199 [facility] mg/dL [facility] LABORATORY Comment: Supplemental ranges: <140 mg/dL before meals <180 mg/dL all other times of the day Specimen Anatomical Collection Method Collection Time Receive d Time (Source) Location / / Volume Laterality Blood specimen 02/20/2019 11:56 9 (specimen) AM EDT 11:56 AM EDT Ace Henry MD POINT OF CARE TEST ORDERABLE S Performing Organization Address City/State/Z[place] [address] POCT Glucose (02/20/2019 9:45 AM EDT) athologist Signature POC Glucose 121 65 - 199 [facility] mg/dL [facility] LABORATORY Comment: Supplemental ranges: <140 mg/dL before meals <180 mg/dL all other times of the day Specimen Anatomical Collection Method Collection Time Receive d Time (Source) Location / / Volume Laterality Blood specimen 02/20/2019 9:45 AM 019 9:45 (specimen) EDT AM EDT Ace Henry MD POINT OF CARE TEST ORDERABLE S Performing Organization Address City/State/[place] [address] Request For 2nd Read CT Abdomen & Pelvis (02/20/2019 1:28 AM EDT) Anatomical Region Laterality Modality Abdomen, Pelvis SO Specimen (Source) Anatomical Location Collection Method / Collectio n Time Received Time / Laterality Volume Impressions 02/20/2019 9:23 AM EDT 4.6 x 2.6 x 3.8 cm abscess in the subcutaneous tissue of the lower anterior abdominal wall along the incision site w ith a large amount of surrounding inflammatory change. Deep to this subcut aneous abscess, just beneath the anterior abdominal wall is a small bowel anastomosis with surrounding inflammatory change. The possibility of a fistulous communication through the anterior abdominal wall should be consid ered. Thank you for letting us participate in the care of this patient. For questions regarding this report, please contact e number below. ? Narrative 02/20/2019 9:23 AM EDT EXAMINATION: REQUEST FOR 2ND READ CT ABDOMEN AND PELVIS CLINICAL HISTORY: Abdominal wall abscess ; What Modality is the exam? CT Scan; Body Part (please add comments as necess carmela): Abdomen and pelvis; I believe a reinterpretation of this exam may alter care of Patient. Yes TECHNIQUE: This study was performed with intravenou s but not oral contrast. Multiplanar reformatted images were obtained and rev iewed. COMPARISON: CT scan of the abdomen and pelvis 2017. FINDINGS: The lung bases are within normal limits. The heart is normal in size. No pleural or pericardial effusion. There is hepatosplenomegaly. There is shyann rderline micronodularity of the liver capsule, best seen along the anterior castillo rface of the left lobe suggesting possible cirrhosis. Minimal hepatic stea tosis may also be present. No focal hepatic lesions seen. The spleen measure s 15.1 cm in craniocaudal dimension. The hepatic and portal veins are patent. Patient is status post cholecystectomy. ??The pancreas and biliary ductal system are normal. There is a 4 mm, nonobstructing interpol ar right renal stone. The kidneys and adrenal glands are otherwise normal. There is a small bowel anastomosis in th e left lower quadrant anteriorly with adjacent fat stranding. This loop is imm ediately beneath the anterior abdominal wall. Along the surgical incision in the left lower quadrant, there is a subcutaneous fluid and gas collection me asuring approximately 4.6 x 2.6 x 3.8 cm. ??No evidence of bowel obstruction. No appendicitis. No colonic diverticula at the level of the above inflammatory c hanges. There are several small upper abdominal retroperitoneal/periaortic lymph nodes. No pathologically enlarged adenopathy. There are atherosclerotic changes in the lower abdominal aorta but no evidence of aneurysm. The urinary bladder is unremarkable. Pat ient is status post hysterectomy. There are degenerative changes in the sp ine and hips but no lytic or blastic process seen. Procedure Note Sumanth Pitts MD - 02/20/2019Format ting of this note might be different from the original. EXAMINATION: REQUEST FOR 2ND READ CT ABD OMEN AND PELVIS CLINICAL HISTORY: Abdominal wall abscess ; What Modality is the exam? CT Scan; Body Part (please add comments as necess carmela): Abdomen and pelvis; I believe a reinterpretation of this exam may alter care of Patient. Yes TECHNIQUE: This study was performed with intravenou s but not oral contrast. Multiplanar reformatted images were obtained and rev iewed. COMPARISON: CT scan of the abdomen and pelvis 2017. FINDINGS: The lung bases are within normal limits. The heart is normal in size. No pleural or pericardial effusion. There is hepatosplenomegaly. There is shyann rderline micronodularity of the liver capsule, best seen along the anterior castillo rface of the left lobe suggesting possible cirrhosis. Minimal hepatic stea tosis may also be present. No focal hepatic lesions seen. The spleen measure s 15.1 cm in craniocaudal dimension. The hepatic and portal veins are patent. Patient is status post cholecystectomy. The pancreas and biliary ductal system are normal. There is a 4 mm, nonobstructing interpol ar right renal stone. The kidneys and adrenal glands are otherwise normal. There is a small bowel anastomosis in th e left lower quadrant anteriorly with adjacent fat stranding. This loop is imm ediately beneath the anterior abdominal wall. Along the surgical incision in the left lower quadrant, there is a subcutaneous fluid and gas collection me asuring approximately 4.6 x 2.6 x 3.8 cm. No evidence of bowel obstruction. No appendicitis. No colonic diverticula at the level of the above inflammatory c hanges. There are several small upper abdominal retroperitoneal/periaortic lymph nodes. No pathologically enlarged adenopathy. There are atherosclerotic changes in the lower abdominal aorta but no evidence of aneurysm. The urinary bladder is unremarkable. Pat ient is status post hysterectomy. There are degenerative changes in the sp ine and hips but no lytic or blastic process seen. IMPRESSION 4.6 x 2.6 x 3.8 cm abscess in the subcut aneous tissue of the lower anterior abdominal wall along the incision site w ith a large amount of surrounding inflammatory change. Deep to this subcut aneous abscess, just beneath the anterior abdominal wall is a small bowel anastomosis with surrounding inflammatory change. The possibility of a fistulous communication through the anterior abdominal wall should be consid ered. Thank you for letting us participate in the care of this patient. For questions regarding this report, please contact e number below. Ace Henry MD IMG OUTSIDE INTERPRETATION O RDERABLES Phosphorus (02/19/2019 11:55 PM EDT) athologist Signature Phosphorus 2.6 2.5 - 4.5 [facility] mg/dL [facility] LABORATORY Specimen Anatomical Collection Method Collection Time Receive d Time (Source) Location / / Volume Laterality Blood specimen Venous Draw / 02/19/2019 11:55 02/21/20 19 2:06 (specimen) Unknown PM EDT AM EDT Resulting Agency Comment Spec In Lab Jaxson Ramos MD CHEMISTRY ORDERABLES Performing Organization Address City/State/Z[place] [address] (ABNORMAL) Magnesium (02/19/2019 11:55 PM EDT) athologist Signature Magnesium 0.59 (L) 0.69 - 1.07 [place] mmol/L [facility] LABORATORY Specimen Anatomical Collection Method Collection Time Receive d Time (Source) Location / / Volume Laterality Blood specimen Venous Draw / 02/19/2019 11:55 02/21/20 19 2:06 (specimen) Unknown PM EDT AM EDT Resulting Agency Comment Spec In Lab Jaxson Ramos MD CHEMISTRY ORDERABLES Performing Organization Address City/State/Z[place] [address] (ABNORMAL) Differential, Automated (02/19/2019 11:55 PM EDT) [facility] Method Time Signature Neutrophils % 60.8 % [facility] LABORATORY Neutr Abs (ANC) 6.29 (H) 1.70 - [facility] [facility] x10(3)/[facility] LABORATORY Lymphocytes % 29.8 % [facility] LABORATORY Lymphocytes Abs 3.1 0.9 - 3.2 [facility] x10(3)/[facility] LABORATORY Monocytes % 7.9 % [facility] LABORATORY Monocyte Abs 0.8 0.3 - 0.9 [facility] x10(3)/[facility] LABORATORY Eosinophils % 1.0 % [facility] LABORATORY Eosinophils Abs 0.1 0.0 - 0.4 [facility] x10(3)/[facility] LABORATORY Basophils % 0.2 % [facility] LABORATORY Basophils Abs 0.0 0.0 - 0.1 [facility] x10(3)/[facility] LABORATORY Immature Gran % 0.30 % [facility] [...] Irina Gran Abs 0.03 0.00 - 0.04 x10(3)/[facility] LABORATORY Specimen Anatomical Collection Method Collection Time Receive d Time (Source) Location / / Volume Laterality Blood specimen 02/19/2019 11:55 9 (specimen) PM EDT 12:14 AM EDT Resulting Agency Comment Spec In Lab Paulino Sauer MD HEMATOLOGY ORDERABLES Performing Organization Address City/State/[place] [address] (ABNORMAL) Hemogram (02/19/2019 11:55 PM EDT) Analysis Performed At [facility] logist Time Signature WBC 10.3 (H) 4.0 - 9.5 [place] x10(3)/[facility] LABORATORY RBC 3.52 (L) 4.00 - [place] 5.21 [facility] x10(6)/[facility] LABORATORY Hemoglobin 10.1 (L) 11.7 - [place] 15.5 gm/dL [facility] LABORATORY Hematocrit 32.2 (L) 35.7 - [facility] % [facility] LABORATORY MCV 91.5 82.6 - [facility] 94.4 [facility] LABORATORY MCH 28.7 27.1 - [place] 32.0 pg [facility] LABORATORY MCHC 31.4 (L) 31.7 - [facility] 35.0 gm/dL [facility] LABORATORY Platelets 245 145 - 357 [facility] x10(3)/[facility] LABORATORY RDWSD 44.3 37.0 - [facility] MON[place] 46.0 [facility] LABORATORY RDWCV 13.2 11[address] [facility] 14.[facility] % [facility] LABORATORY MPV 10.6 7.6 - 12.9 [facility] MON[facility] LABORATORY nRBC % Auto 0.0 % [facility] LABORATORY nRBC Abs Auto 0.000 0.000 - [facility] MONICA 0.000 [facility] x10(3)/[facility] LABORATORY Specimen Anatomical Collection Method Collection Time Receive d Time (Source) Location / / Volume Laterality Blood specimen 02/19/2019 11:55 9 (specimen) PM EDT 12:14 AM EDT Resulting Agency Comment Spec In Lab Paulino Sauer MD HEMATOLOGY ORDERABLES Performing Organization Address City/State/[place] [address] (ABNORMAL) Hepatic Function Panel (02/19/2019 11:55 PM EDT) P athologist Signature Total Protein 7.6 6.1 - 8.0 [facility] [place] gm/dL [facility] LABORATORY Albumin 3.8 3.2 - 5.2 [place] gm/dL [facility] LABORATORY AST 20 0 - 30 [place] unit/L [facility] LABORATORY ALT 11 0 - 30 [place] unit/L [facility] LABORATORY Alk Phos 108 (H) 35 - 105 [place] unit/L [facility] LABORATORY Total 0.8 0.2 - 1.3 [place] Bilirubin mg/dL [facility] LABORATORY Bili, Direct 0.2 0.0 - 0.3 [facility] [place] mg/dL [facility] LABORATORY Specimen Anatomical Collection Method Collection Time Receive d Time (Source) Location / / Volume Laterality Blood specimen 02/19/2019 11:55 9 (specimen) PM EDT 12:14 AM EDT Resulting Agency Comment Spec In Lab Ace Henry MD CHEMISTRY ORDERABLES Performing Organization Address City/[facility]/ZIP Code Phon e Number [address] APTT (02/19/2019 11:55 PM EDT) P athologist Signature PTT 26 25 - 37 sec [facility] LABORATORY Comment: The PTT is NOT appropriate for heparin m onitoring. Use the Anti-Xa level for heparin monitoring (HEP UFH) or LMWH mon itoring (HEP LMW). A PTT less than 37 seconds generally indicates adequate hem ostasis. Specimen Anatomical Collection Method Collection Time Receive d Time (Source) Location / / Volume Laterality Blood specimen 02/19/2019 11:55 9 (specimen) PM EDT 12:14 AM EDT Resulting Agency Comment Spec In Lab Ace Henry MD HEMATOLOGY ORDERABLES Performing Organization Address City/[facility]/ZIP [place] [address] (ABNORMAL) BUN (02/19/2019 11:55 PM EDT) P athologist Signature BUN 5 (L) 8 - 18 [place] mg/dL [facility] LABORATORY Specimen Anatomical Collection Method Collection Time Receive d Time (Source) Location / / Volume Laterality Blood specimen 02/19/2019 11:55 9 (specimen) PM EDT 12:14 AM EDT Resulting Agency Comment Spec In Lab Ace Henry MD CHEMISTRY ORDERABLES Performing Organization Address City/[facility]/ZIP [place] [address] (ABNORMAL) Basic Metabolic Panel (non-fasting) (02/19/2019 11:55 PM EDT) P athologist Signature Glucose Lvl 123 65 - 199 [facility] mg/dL [facility] LABORATORY Comment: Diabetes: >=200 mg/dL plus symp toms BUN 5 (L) 8 - 18 mg/dL [facility] LABORATORY Creatinine 0.60 (L) 0.70 - 1.20 mg/dL [facility] LABORATORY Sodium 140 135 - 145 mmol/L [facility] LABORATORY Potassium 3.5 3.5 - 5.0 mmol/L [facility] LABORATORY Comment: Please note: ??Patients with WBC >100,00 0 may have falsely elevated Potassium levels. ??For accurate Potassium quantif ication in these patients send serum separator tube (gold top) for subsequent determinations. ??Contact the Clinical Chemistry Laboratory if there are any qu estions. Chloride 106 98 - 107 mmol/L [facility] LABORATORY CO2 21 (L) 22 - 31 mmol/L [facility] LABORATORY Anion Gap 13 5 - 15 mmol/L [facility] LABORATORY Calcium 10.8 (H) 8.5 - 10.5 mg/dL [facility] LABORATORY Estimated GFR 100 >=60 mL/min/1.73 m?? [facility] LABORATORY Comment: The eGFR was calculated using the CKD-EP I equation. As with all creatinine based estimates of kidney function, eGFR values calculated with the CKD-EPI equation are not accurate in patients wi th acute kidney failure, extremes of body mass or the acutely ill. [email or web address] eGFR 116 >=60 mL/min/1.73 m?? [facility] LABORATORY Comment: The eGFR was calculated using the CKD-EP I equation. As with all creatinine based estimates of kidney function, eGFR values calculated with the CKD-EPI equation are not accurate in patients wi th acute kidney failure, extremes of body mass or the acutely ill. [email or web address] [email or web address] Specimen Anatomical Collection Method Collection Time Receive d Time (Source) Location / / Volume Laterality Blood specimen 02/19/2019 11:55 9 (specimen) PM EDT 12:14 AM EDT Resulting Agency Comment Spec In Lab Ace Henry MD CHEMISTRY ORDERABLES Performing Organization Address City/[facility] Phon e Number [address] Urine culture (02/19/2019 10:20 PM EDT) Patholo gist Method Time Signature Urine Culture No growth [facility] (Less than [facility] 1,000 [facility] cfu/ml). LABORATORY Specimen Anatomical Collection Method Collection Time Receive d Time (Source) Location / / Volume Laterality First stream 02/19/2019 10:20 02/20/2019 7:17 urine sample PM EDT AM EDT (specimen) Resulting Agency Comment Spec In Lab Paulino Sauer MD MICROBIOLOGY - GENERAL ORDER ELINA Performing Organization Address [facility] [place] [address] (ABNORMAL) Urinalysis Microscopic Exam (02/19/2019 10:20 PM EDT) Analysis Performed At Patho logist Time Signature RBC UA 0 0 - 4 /HPF [facility] LABORATORY WBC UA 20 (H) 0 - 5 /HPF [facility] LABORATORY Bacteria UA Rare (A) None /HPF [facility] LABORATORY Squam Epith UA 4 <=4 /HPF [facility] LABORATORY CaOx Elvira UA Rare (A) None /HPF [facility] LABORATORY Specimen Anatomical Collection Method Collection Time Receive d Time (Source) Location / / Volume Laterality First stream 02/19/2019 10:20 02/19/2019 urine sample PM EDT 11:32 PM EDT (specimen) Resulting Agency Comment Spec In Lab Paulino Sauer MD URINE ORDERABLES Performing Organization Address City/[facility] Phon e Number [address] Urine Hold (02/19/2019 10:20 PM EDT) P athologist Signature Urine Hold Sample in [facility] LABORATORY Specimen Anatomical Collection Method Collection Time Receive d Time (Source) Location / / Volume Laterality Urine specimen Urine / Unknown 02/19/2019 10:20 2018 (specimen) PM EDT 11:33 PM EDT Paulino Sauer MD URINE ORDERABLES Performing Organization Address City/[facility]/ZIP [place] [address] (ABNORMAL) Urinalysis with reflex Culture (02/19/2019 10:20 PM EDT) [facility] Method Time Signature Glucose UA Negative Negative [facility] mg/dL [facility] LABORATORY Protein UA Negative Negative [facility] mg/dL [facility] LABORATORY Bilirubin UA Negative Negative [facility] mg/dL [facility] LABORATORY Comment: Clinical correlation required for positi ve Urine Bilirubin results as false positive may occur with some drugs and d rug related products. If a false positive is suspected a serum total bili bailon should be considered if clinically indicated. Urobilinogen UA Normal Normal mg/dL [facility] LABORATORY pH UA 6.0 5.0 - 8.0 [facility] LABORATORY Blood UA Negative Negative mg/dL [facility] LABORATORY Ketones UA Negative Negative mg/dL [facility] LABORATORY Nitrite UA Negative Negative [facility] LABORATORY Leukocytes UA Small (A) Negative [facility] LABORATORY Appearance UA Clear Clear [facility] LABORATORY Spec [place] UA >1.035 (H) 1.002 - 1.030 [facility] LABORATORY Color UA Yellow Yellow [facility] LABORATORY Culture Reflexed Yes [facility] LABORATORY Specimen Anatomical Collection Method Collection Time Receive d Time (Source) Location / / Volume Laterality First stream 02/19/2019 10:20 02/19/2019 urine sample PM EDT 11:32 PM EDT (specimen) Resulting Agency Comment Spec In Lab Ace Henry MD URINE ORDERABLES Performing Organization Address City/[facility]/[place] [address] Film Library- Storage Only CT Abdomen & Pelvis (02/07/2019 12:00 AM EDT) Specimen (Source) Anatomical Location Collection Method / Collectio n Time Received Time / Laterality Volume Narrative [facility] - 02/20/2019 10:43 PM EDT This exam is auto-finalizing. It's purpo se is for storage only. Ace Henry MD IM FILM LIBRARY ORDERABLES Performing Organization Address [facility] Phon e Number [place], [place] Film Library- Storage Only CT Abdomen & Pelvis (02/03/2019 12:00 AM EDT) Specimen (Source) Anatomical Location Collection Method / Collectio n Time Received Time / Laterality Volume Narrative [facility] [place] - 02/20/2019 10:40 PM EDT This exam is auto-finalizing. It's purpo se is for storage only. Ace Henry MD [facility]RARY ORDERABLES Performing Organization Address [facility] Phon e Number [place], [place] documented in this encounter Visit Diagnoses Diagnosis Abscess Cellulitis and abscess of unspecified si te Abscess Cellulitis and abscess of unspecified si te documented in this encounter Admitting Diagnoses Diagnosis Abscess Cellulitis and abscess of unspecified si te documented in this encounter Administered Medications Inactive Administered Medications - up to 3 most recent administrations Medication Order MAR Action Action Date Dose Rate Site acetaminophen (TYLENOL) tablet 650 Given 02/21/2019 2:52 PM EDT 650 mg mg 650 mg, Oral, EVERY 6 HOURS PRN, Starting on Arin 02/20/19 at 0018, Until Sun02/21/19 at 1747, Pain, Chronic low back pain, Maximum dose of acetaminophen is 4000 mg from all sources in 24 hours., Routine Given 02/20/2019 12:45 AM EDT 650 mg acetaminophen (TYLENOL) tablet 650 mg Given 02/21/2019 6:22 AM EDT 650 mg 650 mg, Oral, EVERY 6 HOURS SCHEDULED, First dose on Arin 02/20/19 at 0845, Until Discontinued, Maximum dose of acetaminophen is 4000 mg from all sources in 24 hours., Routine Given 02/21/2019 12:15 AM EDT 650 mg Given 02/20/2019 5:53 PM EDT 650 mg amitriptyline (ELAVIL) tablet 25 mg Given 02/20/2019 8:40 PM EDT 25 mg 25 mg, Oral, NIGHTLY, First dose on Sun02/20/19 at 0245, Until Discontinued, Routine Given 02/20/2019 2:44 AM EDT 25 mg atorvastatin (LIPITOR) tablet 10 mg Given 02/20/2019 4:36 PM EDT 10 mg 10 mg, Oral, EVERY EVENING, First dose on Sun02/20/19 at 1700, Until Discontinued, Routine carvedilol (COREG) tablet 3.125 mg Given 02/21/2019 8:37 AM EDT 3.125 mg 3.125 mg, Oral, 2 TIMES DAILY WITH MEALS, First dose on Sun02/20/19 at 0815, Until Discontinued, Routine Given 02/20/2019 4:36 PM EDT 3.125 mg Given 02/20/2019 9:06 AM EDT 3.125 mg dextrose 50% intravenous solution 25-50 mL 25-50 mL (12.5-25 g), Intravenous, EVERY 1 HOUR PRN, S tarting on Sun02/20/19 at 0805, Until Sun02/21/19 at 1747, Low blood sugar, Fo r BG 50-70 mg/dL: Oral treatment preferred:?? If able to drink, give 120 mL Juice or Regular (not diet) soda OR If NPO, give 15 gram glucose 40% oral gel massaged into buccal mucosa OR if unconscious or uncooperative, give 12.5 gram (25 mL) Dextrose 50% IV OR, if no IV access, give 1 mg Glucagon IM. For BG less than 50 mg/dL: Oral treatment preferred:?? If able to drink, give 240 mL Juice or Regular (not diet) soda OR If NPO, give 30 gram glucose 40% oral gel m assaged in buccal mucosa OR if unconscious or uncooperative, give 25 gram (50 mL) D extrose 50% IV OR, if no IV access, give 1 mg Glucagon IM. Recheck BG in 30 minutes. May repeat juice, gel, dextrose or glucagon once per episode. To avoid ex travasation, push Dextrose 50% SLOWLY (3 mL over 1 minute) in a patent, running IV, preferably a c entral line. For persistent hypoglycemia, consider longer -acting treatment for the duration of the active insulin., Routine gabapentin (NEURONTIN) capsule 600 mg Given 02/21/2019 2:20 PM EDT 600 mg 600 mg, Oral, 3 TIMES DAILY, First dose on Sun02/20/19 at 0245, Until Discontinued, Routine Given 02/21/2019 8:37 AM EDT 600 mg Given 02/20/2019 8:40 PM EDT 600 mg glucagon (human recombinant) injection S olR 1 mg 1 mg, Intramuscular, EVERY 1 HOUR PRN, S tarting on Sun02/20/19 at 0805, Until Sun02/21/19 at 1747, Low blood sugar, For BG 50-70 mg/dL: Oral treatment preferred:?? If able to drink, give 120 mL Juice or R egular (not diet) soda OR If NPO, give 15 gram glucose 40% oral gel massaged into buccal mucosa OR if unconscious or uncooperative, give 12.5 gram (25 mL) De xtrose 50% IV OR, if no IV access, give 1 mg Glucagon IM. For BG less than 50 m g/dL: Oral treatment preferred:?? If able to drink, give 240 mL Juice or Regular (not diet) soda OR If NPO, give 30 gram glucose 40% oral gel massaged in buccal mucosa OR if unconscious or uncooperative, give 25 gram (50 mL) Dextrose 50% IV OR, if no IV access, give 1 mg Glucagon IM. Recheck BG in 30 minutes. May repeat j uice, gel, dextrose or glucagon once per episode. To avoid extravasation, push Dextrose 50% SLOWLY (3 mL over 1 minute) in a patent, running IV, preferably a centr al line. For persistent hypoglycemia, consider longer-acting treatment for the duration of the active insulin., Routine glucose (GLUTOSE) 40% oral gel 15-30 g, Buccal, EVERY 30 MIN PRN, Start ing on Sun02/20/19 at 0805, Until Sun02/21/19 at 1747, Low blood sugar, For BG 50-70 mg/dL: Oral treatment preferred:?? If able to drink, give 120 mL Juice or Regu lar (not diet) soda OR If NPO, give 15 gram glucose 40% oral gel massaged into buccal mucosa OR if unconscious or uncooperative, give 12.5 gram (25 mL) De xtrose 50% IV OR, if no IV access, give 1 mg Glucagon IM. For BG less than 50 m g/dL: Oral treatment preferred:?? If able to drink, give 240 mL Juice or Regular (not diet) soda OR If NPO, give 30 gram glucose 40% oral gel massaged in buccal mucosa OR if unconscious or uncooperative, give 25 gram (50 mL) Dextrose 50% IV OR, if no IV access, give 1 mg Glucagon IM. Recheck BG in 30 minutes. May repeat j uice, gel, dextrose or glucagon once per episode. To avoid extravasation, push Dextrose 50% SLOWLY (3 mL over 1 minute) in a patent, running IV, preferably a centr al line. For persistent hypoglycemia, consider longer-acting treatment for the duration of t he active insulin. 1 tube contains 15 grams of glucose (net weight of tube = 37. 5 grams., Routine heparin (Porcine) subcutaneous injection Given 019 2:20 PM EDT 5,000 Units 5,000 Units 5,000 Units, Subcutaneous, EVERY 8 HOURS SCHEDULED, First dose on [facility] 02/20/19 at 0830, Until Discontinued, Routine Given 02/21/2019 6:22 AM EDT 5,000 Units Given 02/20/2019 11:04 PM EDT 5,000 Units insulin lispro (HumaLOG) VIAL injection 2-8 Given 08/2018 8:38 AM EDT 2 Units Units 2-8 Units, Subcutaneous, EVERY 4 HOURS SCHEDULED, First dose on Arin 02/20/19 at 0900, Until Discontinued, CORRECTION BOLUS Moderate BG 140 - 160 Give 2 units BG 161 - 200 Give 4 units BG 201 - 240 Give 6 units BG greater than 240, give 8 units and recheck BG in 2 hours. If less than 240 after two hours, give no insulin and resume prior schedule. If BG remains greater than 240, repeat 8 units (no more than three times) & call for new basal insulin orders. DO NOT hold if NPO, unless specifically told to do so., Routine Given 02/20/2019 8:05 PM EDT 2 Units ipratropium-albuterol (DUONEB) 0.5 mg-3 mg(2.5 Given 0 02/21/2019 2:13 AM EDT 3 mLs mg base)/3 mL nebulizer solution 3 mL 3 mL, Nebulization, EVERY 6 HOURS, First dose on Sun02/20/19 at 0830, Until Discontinued, Routine Given 02/20/2019 8:40 PM EDT 3 mLs Given 02/20/2019 2:18 PM EDT 3 mLs ipratropium-albuterol (DUONEB) 0.5 mg-3 mg(2.5 mg base)/3 mL nebulizer solution 3 mL 3 mL, Nebulization, EVERY 4 HOURS PRN, S tarting on Sun02/21/19 at 1045, Until Sun02/21/19 at 1747, Wheezing, Routine lactated ringers infusion New Bag 02/20/2019 1:01 PM EDT 75 mL/hr 75 mL/hr 75 mL/hr, Intravenous, CONTINUOUS, Starting on Sun02/19/19 at 2330, Until Sun02/20/19 at 1745 New Bag 02/19/2019 11:36 PM EDT 75 mL/hr 75 mL/hr lidocaine (XYLOCAINE) 10 mg/mL (1 %) injection Given 0 02/20/2019 4:10 PM EDT 10 mg 10 mg 10 mg, Subcutaneous, ONCE, 1 dose, On Sun02/20/19 at 1445, For use in Interventional Radiology (IR) only for procedure with direct provider supervision and verbal order., Angio/IR (Intra-Procedure), Routine lidocaine (XYLOCAINE) 10 mg/mL (1 %) inj ection 3 mg 3 mg (0.3 mL), Subcutaneous, ONCE PRN, 1 dose, Startin g on Sun02/19/19 at 2305, Until Sun02/21/19 at 1747, for discomfort with PIV inse rtion, Routine magnesium sulfate 2 g in sterile water New Bag 02/20/2019 9:52 AM EDT 2 g 25 mL/hr 50 mL 2 g, Intravenous, ONCE, 1 dose, On Sun02/20/19 at 0845, Administer over 120 Minutes magnesium sulfate 2 g in sterile Restarted 02/21/2019 9:50 AM EDT 2 g 25 mL/hr water 50 mL 2 g, Intravenous, ONCE, 1 dose, On Sun02/21/19 at 0715, Administer over 120 Minutes New Bag 02/21/2019 8:33 AM EDT 2 g 25 mL/hr oxyCODONE (ROXICODONE) immediate release tablet Given 02/20/2019 8:39 PM EDT 5 mg 5 mg 5 mg, Oral, EVERY 8 HOURS PRN, Starting on Sun02/20/19 at 0220, Until Sun02/21/19 at 1747, Pain, Routine Given 02/20/2019 2:44 AM EDT 5 mg potassium chloride (K-DUR/KLOR-CON) extended Given 08/2018 8:37 AM EDT 40 mEq release tablet 40 mEq 40 mEq, Oral, ONCE, 1 dose, On Sun02/21/19 at 0715, 20 mEq tablet may be dissolved in water for administration, Routine potassium chloride 10 mEq in 100 mL New Bag 02/20/2019 3:00 PM EDT 10 mEq 100 mL/hr 10 mEq, Intravenous, EVERY 2 HOURS, 4 doses, First dose on Sun02/20/19 at 0900, Last dose on Sun02/20/19 at 1500, Administer over 60 Minutes, Warning Vesicant/Irritant Medication New Bag 02/20/2019 1:01 PM EDT 10 mEq 100 mL/hr New Bag 02/20/2019 11:11 AM EDT 10 mEq 100 mL/hr sodium chloride 0.9 % (flush) flush 5 mL Given 02/21/2019 8:34 AM EDT 5 mLs 5 mL, Intravenous, 2 TIMES DAILY, First dose on Sun02/19/19 at 2330, Until Discontinued, Routine Given 02/20/2019 8:40 PM EDT 5 mLs Given 02/19/2019 11:37 PM EDT 5 mLs sodium chloride 0.9 % (flush) flush 5-20 mL 5-20 mL, Intravenous, EVERY 1 MIN PRN, S tarting on Sun02/19/19 at 2305, Until Sun02/21/19 at 1747, flush, Flush pertains to all indwelling lines. Flush per protocol found in the job aid using the link prov ided on this medication record., Routine vancomycin 2 g in sodium chloride 0.9% New Bag 02/20/2019 4:36 PM EDT 2 g 250 mL/hr 500 mL 2 g, Intravenous, EVERY 12 HOURS, First dose on Sun02/20/19 at 0345, Until Discontinued, Administer over 120 Minutes, Maximum infusion rate is 1 gram/hour. If flushing of the face, neck, upper body, arms, and/or back occurs decrease infusion rate by 50% to reduce the severity of symptoms. This medication may have an associated drug lab level. Please see MAR for scheduled level., Indication for (Active or Suspected): Skin/Skin Structure New Bag 02/20/2019 4:30 AM EDT 2 g 250 mL/hr vancomycin 2 g in sodium chloride 0.9% New Bag 02/21/2019 4:24 AM EDT 2 g 250 mL/hr 500 mL 2 g, Intravenous, EVERY 12 HOURS, First dose (after last reorder) on Sun02/21/19 at 0400, Until Discontinued, Administer over 120 Minutes, Maximum infusion rate is 1 gram/hour. If flushing of the face, neck, upper body, arms, and/or back occurs decrease infusion rate by 50% to reduce the severity of symptoms. This medication may have an associated drug lab level. Please see MAR for scheduled level., Indication for (Active or Suspected): Skin/Skin Structure Vancomycin Level - MAR Order Reminder NOT APPLICABLE, PER PHARMACY, Other, Starting on Arin at 0248, Until Sun02/21/19 at 1747, This alert will be sched uled by a pharmacist after order placement. This order is a reminder to nursing staf f to release and draw the PRN drug level at the specified time. It may be necessary to contact phlebotomy 60 minutes prior to the scheduled due time to assure a timely blood draw. Vancomycin Level - MAR Order Reminder NOT APPLICABLE, ONCE, On 02/22/19 at 0 430, 1 dose, This alert will be scheduled by a pharmacist after order placement. T his order is a reminder to nursing staff to release and draw the PRN drug level at t he specified time. It may be necessary to contact phlebotomy 60 minutes prior to t he scheduled due time to assure a timely blood draw. documented in this encounter Active and Recently Administered Medications Times are shown in EDT. Scheduled Medication Order 02/19/2019 02/20/2019 02/21/2019 acetaminophen (TYLENOL) tablet 650 mg 09 06 (Given - Provider: Naomi Dixon RN)1200 (Not Given - Provider: Naomi Dixon RN - Reason: Contraindicated)1753 (Given - Provider: Naomi Dixon RN) 0015 (Given - Provider: Alon Shi RN)0622 (Given - Provider: Alon Shi RN)1145 (Not Given - Provider: Marco Lazaro, BRYAN - Reason: Patient/family refused) 650 mg, Oral, EVERY 6 HOURS SCHEDULED, F irst dose on Arin 02/20/19 at 0845, Until Discontinued, Maximum dose of acetaminophen is 4000 mg from all sources in 24 hours., Routine amitriptyline (ELAVIL) tablet 25 mg 0244 (Given - Provider: Alon Shi RN)2039 (Given - Provider: Alon Shi RN) 25 mg, Oral, NIGHTLY, First dose on Arin 02/20/19 at 0245, Until Discontinued, Routine atorvastatin (LIPITOR) tablet 10 mg 163 (Given - Provider: Naomi Dixon RN) 10 mg, Oral, EVERY EVENING, First dose o n Arin 02/20/19 at 1700, Until Discontinued, Routine carvedilol (COREG) tablet 3.125 mg 09 (Given - Provider: Naomi Dixon RN)163 (Given - Provider: Naomi Dixon RN) 0837 (Given - Provider: Marco Lazaro, BRYAN) 3.125 mg, Oral, 2 TIMES DAILY WITH MEALS , First dose on Arin 02/20/19 at 0815, Until Discontinued, Routine diphenhydrAMINE (BENADRYL) injection 25 mg 1615 (Not Given - Provider: Naomi Dixon RN - Reason: Transfer to a Procedural area) 25 mg, Intravenous, ONCE, 1 dose, Arin 02/20/19 at 1615, Routine gabapentin (NEURONTIN) capsule 600 mg 02 44 (Given - Provider: Alon Shi, BRYAN)0906 (Given - Provider: Naomi Dixon RN)1418 (Given - Provider: Naomi Dixon, BRYAN)204 (Given - Provider: Alon Shi RN) 0837 (Given - Provider: Marco Lazaro, BRYAN)1420 (Given - Provider: Marco Lazaro, BRYAN) 600 mg, Oral, 3 TIMES DAILY, First dose on Arin 02/20/19 at 0245, Until Discontinued, Routine heparin (Porcine) subcutaneous injection 5,000 Units 0906 (Given - Provider: Naomi Dixon RN)1418 (Given - Provider: Naomi Dixon RN)2304 (Given - Provider: Alon Shi, BRYAN) 0622 (Given - Provider: Alon Shi RN)1420 (Given - Provider: Marco Lazaro RN) 5,000 Units, Subcutaneous, EVERY 8 HOURS SCHEDULED, First dose on Arin 02/20/19 at 0830, Until Discontinued, Routine insulin lispro (HumaLOG) VIAL injection 2-8 Units(Linked Bear up 1) 0900 (Not Given - Provider: Naomi Dixon RN - Reason: Contraindicated)1200 (Not Given - Provider: Naomi Dixon RN - Reason: Order parameters not met)1600 (Not Given - Provider: Naomi Dixon RN - Reason: Order parameters not met) 0000 (Not Given - Provider: Alno Shi RN - Reason: Order parameters not met)0400 (Not Given - Provider: Alon Shi RN - Reason: Order parameters not met)0838 (Given - Provider: Marco Lazaro RN) 2-8 Units, Subcutaneous, EVERY 4 HOURS S CHEDULED, First dose on Arin 02/20/19 at 0900, Until Discontinued, CORRECTION BOLUS Moderate BG 140 - 160 Give 2 units BG 161 - 200 Give 4 units BG 201 - 240 Giv 2004 (Given - Provider: Alon Shi RN) 1144 (Not Given - Provider: Marco mott RN - Reason: Order parameters not met) e 6 units BG greater than 240, give 8 un its and recheck BG in 2 hours. If less than 240 after two hours, give no insulin and resume prior schedule. If BG remains greater than 240, repeat 8 units (no mor e than three times) & call for new basal insulin orders. DO NOT hold if NPO, unless specifically told to do so., Routine ipratropium-albuterol (DUONEB) 0.5 mg-3 mg(2.5 mg base)/3 mL nebulizer solution 3 mL (CANCELED) 0906 (Given - Provider: Danielle Dixon RN)1418 (Given - Provider: Naomi Dixon RN)2040 (Given - Provider: Alon Shi RN) 0213 (Given - Provider: Alon Shi RN)0830 (Not Given - Provider: Marco Lazaro RN - Reason: Patient/family refused) 3 mL, Nebulization, EVERY 6 HOURS, First dose on Arin 02/20/19 at 0830, Until Discontinued, Routine lidocaine (XYLOCAINE) 10 mg/mL (1 %) injection 10 mg (CANCEL ED) 1610 (Given - Provider: Corby Flor MD) 10 mg, Subcutaneous, ONCE, 1 dose, Arin at 1445, For use in Interventional Radiology (IR) only for procedure with direct provider supervision and verbal order., Angio/IR (Intra-Procedure), Routine magnesium sulfate 2 g in sterile water 50 mL (COMPLETED) 0952 (New Bag - Provider: Naomi Dixon RN)1152 (Stopped - Provider: aNomi Dixon RN) 2 g, Intravenous, ONCE, 1 dose, Arin 02/20/19 at 0845, Ad 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 2ml administered.)0950 (Restarted - Provider: Marco Lazaro RN) 2 g, Intravenous, ONCE, 1 dose, Sun02/21/19 at 0715, Ad night patrol inspector over 120 Minutes 1145 (Stopped - Provider: Jeniffer Lazaro RN) potassium chloride (K-DUR/KLOR-CON) extended release tablet 40 mEq (COMPLETED) 0837 (Given - Provider: Marco samano RN) 40 mEq, Oral, ONCE, 1 dose, Sun02/21/19 a t 0715, 20 mEq tablet may be dissolved in water for administration, Routine potassium chloride 10 mEq in 100 mL (COMPLETED) 0906 (New Bag - Provider: Naomi Dixon RN)1006 (Stopped - Provider: Naomi Dixon RN)1111 (New Bag - Provider: Naomi Dixon RN)1211 (Stopped - Provider: Naomi Dixon RN)1301 (New Bag - Provider: Naomi Dixon RN) 10 mEq, Intravenous, EVERY 2 HOURS, 4 do ses, First dose on Sun02/20/19 at 0900, Last dose on Sun02/20/19 at 1500, Administer over 60 Minutes, Warning Vesicant/Irritant Medication 1401 (Stopped - Provid er: Naomi Dixon RN)1500 (New Bag - Provider: Naomi Dixon RN)1600 (Stopped - Provider: Naomi Dixon RN) sodium chloride 0.9 % (flush) flush 5 mL 2337 (Given - Provider: Alon Shi RN) 0900 (Not Given - Provider: Naomi donald RN - Reason: Contraindicated)2040 (Given - Provider: Alon Shi RN) 0834 (Given - Provider: Marco Lazaro RN) 5 mL, Intravenous, 2 TIMES DAILY, First dose on Sun02/19/19 at 2330, Until Discontinued, Routine vancomycin 2 g in sodium chloride 0.9% 500 mL (CANCELED) 0430 (New Bag - Provider: Alon Shi RN)0630 (Stopped - Provider: Naomi Dixon RN)1636 (New Bag - Provider: Naomi Dixon RN)1836 (Stopped - Provider: Naomi Dixon RN) 2 g, Intravenous, EVERY 12 HOURS, First dose on Sun02/20/19 at 0345, Until Discontinued, Administer over 120 Minutes, Maximum infusion rate is 1 gram/hour. If flushing of the face, neck, upper body, arms , and/or back occurs decrease infusion r ate by 50% to reduce the severity of symptoms. This medication may have an associated drug lab level. Please see MAR for scheduled level., Indication for (Active or Suspected): Skin/Skin Structure vancomycin 2 g in sodium chloride 0.9% 500 mL 0424 (New Bag - Provider: Alon Shi RN)0624 (Stopped - Provider: Alon Shi RN) 2 g, Intravenous, EVERY 12 HOURS, First dose on Sun02/21/19 at 0400, Until Discontinued, Administer over 120 Minutes, Maximum infusion rate is 1 gram/hour. If flushing of the face, neck, upper body, arms , and/or back occurs decrease infusion r ate by 50% to reduce the severity of symptoms. This medication may have an associated drug lab level. Please see MAR for scheduled level., Indication for (Active or Suspected): Skin/Skin Structure Vancomycin Level - MAR Order Reminder NOT APPLICABLE, ONCE, 02/22/19 at 0430 , For 1 dose, This alert will be scheduled by a pharmacist after order placement. This order is a reminder to nursing staff to release and draw the PRN drug level at the specified time. It may be necess carmela to contact phlebotomy 60 minutes prior to the scheduled due time to assure a timely blood draw. Continuous Medication Order 02/19/2019 02/20/2019 02/21/2019 lactated ringers infusion (CANCELED) 2336 (New Bag - P rovider: Alon Shi, BRYAN) 1301 (New Bag - Provider: Naomi Dixon , BRYAN)1439 (Paused - Provider: Naomi Dixon RN - Comment: to IR)1600 (Stopped - Provider: Naomi Dixon RN) 75 mL/hr, at 75 mL/hr, Intravenous, CONT INUOUS, Starting 02/19/19 at 2330, Until Arin 02/20/19 at 1745 PRN Medication Order 02/19/2019 02/20/2019 02/21/2019 acetaminophen (TYLENOL) tablet 650 mg 00 45 (Given - Provider: Alon Shi, BRYAN) 1452 (Given - Provider: Marco samano RN) 650 mg, Oral, EVERY 6 HOURS PRN, Startin g Arin 02/20/19 at 0018, Until Sun02/21/19 at 1747, Pain, Chronic low back pain, Maximum dose of acetaminophen is 4000 mg from all sources in 24 hours., Routine dextrose 50% intravenous solution 25-50 mL(Linked Group 2) 25-50 mL (12.5-25 g), Intravenous, EVERY 1 HOUR PRN, Starting Arin 02/20/19 at 0805, Until Sun02/21/19 at 1747, Low blood sugar, For BG 50-70 mg/dL: Oral treatment preferred:?? If able to drink, give 120 mL Juice or Regular (not diet) soda OR If NPO, give 15 gram glucose 40% oral gel massaged into buccal mucosa OR if unconscious or uncooperative, give 12.5 gram (25 mL) Dextrose 50% IV OR, if no IV acce ss, give 1 mg Glucagon IM. For BG les s than 50 mg/dL: Oral treatment preferred:?? If able to drink, give 240 mL Juice or Regular (not diet) soda OR If NPO, give 30 gram glucose 40% oral gel massaged in buccal mucosa OR if unconscious or un cooperative, give 25 gram (50 mL) Dextrose 50% IV OR, if no IV access, give 1 mg Glucagon IM. Recheck BG in 30 minutes. May repeat juice, gel, dextrose or gluca peterson once per episode. To avoid extrava sation, push Dextrose 50% SLOWLY (3 mL over 1 minute) in a patent, running IV, preferably a central line. For persistent hypoglycemia, consider longer-acting t reatment for the duration of the active insulin., Routine glucagon (human recombinant) injection SolR 1 mg(Linked Group 2) 1 mg, Intramuscular, EVERY 1 HOUR PRN, S tarting Arin 02/20/19 at 0805, Until Sun02/21/19 at 1747, Low blood sugar, For BG 50-70 mg/dL: Oral treatment preferred:?? If able to drink, give 120 mL Juice or R egular (not diet) soda OR If NPO, give 1 5 gram glucose 40% oral gel massaged into buccal mucosa OR if unconscious or uncooperative, give 12.5 gram (25 mL) Dextrose 50% IV OR, if no IV access, give 1 mg Glucagon IM. For BG less than 50 mg/d L: Oral treatment preferred:?? If able to drink, give 240 mL Juice or Regular (not diet) soda OR If NPO, give 30 gram glucose 40% oral gel massaged in buccal muco sa OR if unconscious or uncooperative, g kayla 25 gram (50 mL) Dextrose 50% IV OR, if no IV access, give 1 mg Glucagon IM. Recheck BG in 30 minutes. May repeat juice, gel, dextrose or glucagon once per e pisode. To avoid extravasation, push D extrose 50% SLOWLY (3 mL over 1 minute) in a patent, running IV, preferably a central line. For persistent hypoglycemia, consider longer-acting treatment for the duration of the active insulin., Routine glucose (GLUTOSE) 40% oral gel(Linked Group 2) 15-30 g, Buccal, EVERY 30 MIN PRN, Start ing Arin 02/20/19 at 0805, Until Sun02/21/19 at 1747, Low blood sugar, For BG 50-70 mg/dL: Oral treatment preferred:?? If able to drink, give 120 mL Juice or Regul ar (not diet) soda OR If NPO, give 15 gr am glucose 40% oral gel massaged into buccal mucosa OR if unconscious or uncooperative, give 12.5 gram (25 mL) Dextrose 50% IV OR, if no IV access, give 1 mg Gluc agon IM. For BG less than 50 mg/dL: O ral treatment preferred:?? If able to drink, give 240 mL Juice or Regular (not diet) soda OR If NPO, give 30 gram glucose 40% oral gel massaged in buccal mucosa O R if unconscious or uncooperative, give 25 gram (50 mL) Dextrose 50% IV OR, if no IV access, give 1 mg Glucagon IM. Recheck BG in 30 minutes. May repeat juice, gel, dextrose or glucagon once per episo de. To avoid extravasation, push Dextr ose 50% SLOWLY (3 mL over 1 minute) in a patent, running IV, preferably a central line. For persistent hypoglycemia, consider longer-acting treatment for the d uration of the active insulin. 1 tube co ntains 15 grams of glucose (net weight of tube = 37.5 grams., Routine ipratropium-albuterol (DUONEB) 0.5 mg-3 mg(2.5 mg base)/3 mL nebulizer solution 3 mL 3 mL, Nebulization, EVERY 4 HOURS PRN, S tarting Sun02/21/19 at 1045, Until Sun02/21/19 at 1747, Wheezing, Routine lidocaine (XYLOCAINE) 10 mg/mL (1 %) injection 3 mg 3 mg (0.3 mL), Subcutaneous, ONCE PRN, 1 dose, Starting 02/19/19 at 2305, Until Sun02/21/19 at 1747, for discomfort with PIV insertion, Routine oxyCODONE (ROXICODONE) immediate release tablet 5 mg 243 (Given - Provider: Alon Shi RN)2038 (Given - Provider: Alon Shi RN) 5 mg, Oral, EVERY 8 HOURS PRN, Starting Sun02/20/19 at 0220, Until Sun02/21/19 at 1747, Pain, Routine sodium chloride 0.9 % (flush) flush 5-20 mL 5-20 mL, Intravenous, EVERY 1 MIN PRN, S tarting Sun02/19/19 at 2305, Until Sun02/21/19 at 1747, flush, Flush pertains to all indwelling lines. Flush per protocol found in the job aid using the link provided on this medication record., Routine Vancomycin Level - MAR Order Reminder(Linked Group 3) NOT APPLICABLE, PER PHARMACY, Other, Sta rting Sun02/20/19 at 0248, This alert will be scheduled by a pharmacist after order placement. This order is a reminder to nursing staff to release and draw the [place] N drug level at the specified time. It m ay be necessary to contact phlebotomy 60 minutes prior to the scheduled due time to assure a timely blood draw. Linked Groups Order Group 1: POCT Fingerstick Glucose (CANCELED) Routine, EVERY 4 HOURS, First occurrence on Sun02/20/19 at 1200, Until Specified
Consider choosing EVERY 4 HOURS as frequency for: - Type 1 Diabetes - At least 24 hours after coming off an insul in drip - At least 24 hours after admiss ion for DKA - Hypoglycemia unawareness - Patients who are otherwise unstable Select the same frequency for the correction bolus insulin order And insulin lispro (HumaLOG) VIAL injection 2-8 UnitsJump to med 2-8 Units, Subcutaneous, EVERY 4 HOURS S CHEDULED, First dose on Sun02/20/19 at 0900, Until Discontinued
CORRECTION BOLUS Moderate BG 140 - 160 Give 2 units BG 161 - 200 Give 4 units& nbsp; BG 201 - 240 &nbsp ;Give 6 units BG greater than 240, give 8 units and recheck BG in 2 hours. If less than 240 after two hours, give no insulin and resume prior schedule. If BG remains greater than 240, repeat 8 units (no more than three times) & call for new basal insulin orders. DO NOT hold if NPO, unless specifically told to do so.
Routine Group 2: glucose (GLUTOSE) 40% oral gelJump to med 15-30 g, Buccal, EVERY 30 MIN PRN, Start ing Arin 02/20/19 at 0805, Until Sun02/21/19 at 1747, Low blood sugar
For BG 50-70 mg/dL: Oral treatment preferred:?? If able to drink, give 120 mL Juice or Regular (not diet) soda OR If NPO, gi ve 15 gram glucose 40% oral gel massaged into buccal mucosa OR if unconscious or uncooperative, give 12.5 gram (25 mL) Dextrose 50% IV OR, if no IV access, give 1 mg Glucagon IM. For BG less th an 50 mg/dL: Oral treatment preferred:?? If able to drink, give 240 mL Juice or Regular (not diet) soda OR If NPO, give 30 gram glucose 40% oral gel massaged in buccal mucosa OR if unconscious or un cooperative, give 25 gram (50 mL) Dextrose 50% IV OR, if no IV access, give 1 mg Glucagon IM. Recheck BG in 30 minutes. May repeat juice, gel, dextrose or glucagon once per episode. T o avoid extravasation, push Dextrose 50% SLOWLY (3 mL over 1 minute) in a patent, running IV, preferably a central line. For persistent hypoglyce anabelle, consider longer-acting treatment fo r the duration of the active insulin. 1 tube contains 15 grams of glucose (net weight of tube = 37.5 grams.
Routine Or dextrose 50% intravenous solution 25-50 mLJump to med 25-50 mL (12.5-25 g), Intravenous, EVERY 1 HOUR PRN, Starting Arin 02/20/19 at 0805, Until Sun02/21/19 at 1747, Low blood sugar
For BG 50-70 mg/dL: Oral treatment preferred:?? If able to drink, give 120 mL Juice or Regular (not diet) soda OR If NPO, give 15 gram glucose 40% oral gel massaged into buccal mucosa OR if unconscious or uncooperative, give 12.5 gram (25 mL) Dextrose 50% IV OR, if no IV access, give 1 mg Glucagon IM. &nbsp ; For BG less than 50 mg/dL: Oral treatment preferred:?? If able to drink, give 240 mL Juice or Regular (not diet) soda OR If NPO, give 30 gram glucose 40% oral gel massaged in buccal mucosa OR if unconscious or uncooperative, give 25 gram (50 mL) Dextrose 50% IV OR, if no IV access, give 1 mg Glucagon IM. Recheck BG in 30 minutes. May repeat ju ice, gel, dextrose or glucagon once per episode. To avoid extravasation, push Dextrose 50% SLOWLY (3 mL over 1 minute) in a patent, running IV, preferably a central line. For pe rsistent hypoglycemia, consider longer-a cting treatment for the duration of the active insulin.
Routine Or glucagon (human recombinant) injection SolR 1 mgJump to med 1 mg, Intramuscular, EVERY 1 HOUR PRN, S tarting Arin 02/20/19 at 0805, Until Sun02/21/19 at 1747, Low blood sugar
For BG 50-70 mg/dL: Oral treatment preferred:?? If able to drink, give 120 mL Ju ice or Regular (not diet) soda OR If NPO , give 15 gram glucose 40% oral gel massaged into buccal mucosa OR if unconscious or uncooperative, give 12.5 gram (25 mL) Dextrose 50% IV OR, if no IV access, gi ve 1 mg Glucagon IM. For BG les s than 50 mg/dL: Oral treatment preferred:?? If able to drink, give 240 mL Juice or Regular (not diet) soda OR If NPO, give 30 gram glucose 40% oral gel massa ged in buccal mucosa OR if unconscious o r uncooperative, give 25 gram (50 mL) Dextrose 50% IV OR, if no IV access, give 1 mg Glucagon IM. Recheck BG in 30 minutes. May repeat juice, gel, dext chele or glucagon once per episode. &nbsp ;To avoid extravasation, push Dextrose 50% SLOWLY (3 mL over 1 minute) in a patent, running IV, preferably a central line. For persistent hypog lycemia, consider longer-acting treatmen t for the duration of the active insulin.
Routine Group 3: vancomycin 1 g in 0.9 % sodium chloride 200 mL (CANCELED) 1 g, Intravenous, EVERY 12 HOURS, First dose on Arin 02/20/19 at 0900, Until Discontinued, Administer over 60 Minutes
Maximum infusion rate is 1 gram/hour. If flushing of the face, neck, upper body, arms, &n bsp;and/or back occurs decrease infusion rate by 50% to reduce the severity of symptoms. This medication may have an as sociated drug lab level. Please se e MAR for scheduled level. Warning Vesicant/Irritant Medication
Indication for (Active or Suspected): GI/Intra-abdominal And Vancomycin, trough (CANCELED) Timed, PRN, Starting Arin 02/20/19 at 0248, Until Specified And Vancomycin Level - MAR Order ReminderJump to med NOT APPLICABLE, PER PHARMACY, Other, Sta rting Arin 02/20/19 at 0248
This alert will be scheduled by a pharmacist after order placement. This order is a reminder to nursing staff to release and dra petty the PRN drug level at the specified ti me. It may be necessary to contact phlebotomy 60 minutes prior to the scheduled due time to assure a timely blood draw.
documented in this encounter Care Teams Extrusion Process Operator Relationship Specialty Start Date End Date Albert Zuleta MD PCP - General Family Medicine 01/17/17 10/26/21 [place] [address] documented as of this encounter
--- OUTSIDE RECORDS SUMMARY | 2022-02-08 01:52 | XMS_ITS | Encounter Summary ---
:1960 Author Organization [facility] [place] [address] Care Team Providers Name Role Phone Albert Zuleta MD Primary Care Provider Encounter Details Date Type Department Care Team Description 03/07/2019 External Results General Surgery at [facility] [place] [id number] Social History Tobacco Use Types Packs/Day [...] [facility] [address] [place] [address] 03/23/2022 Appointment Radiology Hailey Mcclendon MD [facility] [address] [place] [address] 03/23/2022 Laboratory Appointment Lab 03/23/2022 Office Visit Gastroenterology Hailey Mcclendon MD [facility] [place] [address] 05/23/2022 Procedure visit Maxillofacial Surgery Corby Montes MD [facility] [place] [address] documented as of this encounter Procedures Procedure Name Priority Date/Time Associated Diagnosis Comme nts LAB SCAN Routine 01/01/2019 Results for thi s procedure are in the resu lts section. documented in this encounter Results Scan Doc: Lab (01/01/2019) Narrative This result has an attachment that is no t available. Historical Provider MD MEDIA MGR SCAN EXT ORDR/RSLT documented in this encounter Visit Diagnoses Not on filedocumented in this encounter Care Teams Car Attendant Relationship Specialty Start Date End Date Albert Zuleta MD PCP - General Family Medicine 01/17/17 10/26/21 [address] [place] [id number] documented as of this encounter
--- OUTSIDE RECORDS SUMMARY | 2022-02-08 01:52 | XMS_ITS | Encounter Summary ---
:1960 Author Organization [facility] [place] [address] Care Team Providers Name Role Phone Albert Zuleta MD Primary Care Provider Encounter Details Date Type Department Care Team Description 03/07/2019 Orders Only General Surgery at [facility] [place] [phone] Social History Tobacco Use Types Packs/Day [...] 03/15/2022 Office Visit Neurology Ryann Barfield APRN [facility] [address] [place] [address] 03/23/2022 Appointment Radiology Hailey Mcclendon MD [facility] [address] [place] [address] 03/23/2022 Laboratory Appointment Lab 03/23/2022 Office Visit Gastroenterology Hailey Mcclendon MD [facility] [place] [address] 05/23/2022 Procedure visit Maxillofacial Surgery Corby Montes MD [facility] [address] [place] [address] documented as of this encounter Visit Diagnoses Not on filedocumented in this encounter Care Teams Delivery And Mail Sorter Relationship Specialty Start Date End Date Albert Zuleta MD PCP - General Family Medicine 01/17/17 10/26/21 [address] [place] [address] documented as of this encounter
--- OUTSIDE RECORDS SUMMARY | 2022-02-08 01:52 | XMS_ITS | Encounter Summary ---
:1960 Author Organization [place] [address] Care Team Providers Name Role Phone Albert Zuleta MD Primary Care Provider Reason for Visit Reason Comments Follow-up Encounter Details Date Type Department Care Team Description 02/14/2019 Office Visit General Surgery at [facility] Ace Henry MD Postop check [facility] [place] [address] GENERAL SURGERY [phone] [place], [place] [address] (Wo rk) Social History Tobacco [...] Taken Comments Blood Pressure - - Pulse 70 02/14/2019 8:52 AM EDT Temperature 36.4 ??C (97.6 ??F) 02/14/2019 8:52 AM EDT Respiratory Rate 18 02/14/2019 8:52 AM EDT Oxygen Saturation 99% 02/14/2019 8:52 AM EDT Inhaled Oxygen Concentration - - Weight 126.6 kg (279 lb) 02/14/2019 8:52 AM EDT Height - - Body Mass Index 43.79 01/05/2019 12:20 AM EDT documented in this encounter Progress Notes Ace Henry MD - 02/14/2019 9:00 AM EDT Blossom Samayoa returns today for postoperative evaluation s/p exploratory laparotomy 01/05 and planned return to OR 01/07 for closure with small bowel resection performed in the setting of inexplicable and severe shock. She did well and was discharged but reports that problems with her BIANCA drain led to evaluation and admission for removal of that drain with IR placement of a left sided drain in a subcutaneous collection. I do not have reports from that [facility] hospitalization at present time. Since that drain was placed, she is now at home and the output has been quite scant by her report. She is tolerating a diet but reports persistent loose stools, non-bloody. No fevers or chills. EXAM Alert NAD Abdomen soft, nondistended. Nontender. Incision healing well without erythema, drainage or recurrenthernia. Induration/scarring noted in cephalad aspect of healing incision, BIANCA drain with scant serousoutput. Assessment/Plan: Blossom Samayoa is doing well s/p emergency surgery for shock with exception of subcutaneous collection despite BIANCA drain placement requiring replacement of drain by IR at [facility] (whereshe was staying with sister). We removed drain in clinic and encouraged her to call at any time in future if new questions or concerns were to arise. Otherwise we will arrange close follow- up in about two weeks' time for office re-evaluation and Ms. Samayoa appears to understand and agree with this plan. documented in this encounter Plan of Treatment Upcoming Encounters Date Type Specialty Care Team Description 03/15/2022 Office Visit Neurology Ryann Barfield, TOOL OR DIE DRAWING CHECKER [facility] [address] [place], [place] [address] 03/23/2022 Appointment Radiology Hailey Mcclendon MD [facility] [place] [address] 03/23/2022 Laboratory Appointment Lab 03/23/2022 Office Visit Gastroenterology Hailey Mcclendon MD [facility] [place] [address] 05/23/2022 Procedure visit Maxillofacial Surgery Corby Montes MD [facility] [address] [address] documented as of this encounter Visit Diagnoses Diagnosis Postop check Follow-up examination, following unspeci fied surgery documented in this encounter Care Teams Cloth Mercerizer Operator Relationship Specialty Start Date End Date Albert Zuleta MD PCP - General Family Medicine 01/17/17 10/26/21 [address] [place] [address] documented as of this encounter
--- OUTSIDE RECORDS SUMMARY | 2022-02-08 01:52 | XMS_ITS | Encounter Summary ---
:1960 Author Organization [facility] [place] [address] Care Team Providers Name Role Phone Albert Zuleta MD Primary Care Provider Encounter Details Date Type Department Care Team Description 03/11/2019 Notes Only Care [place] [address] Social History Tobacco Use Types Packs/Day [...] documented as of this encounter Progress Notes Mayte Manuel - 03/11/2019 9:24 AM EDT 03/07/2019--On Duty Emergency Fund (Transportation) Assessment Referral source to Care Management: a friend Scheduled or Unscheduled Appt: scheduled [place] [facility] [place] Plan for return home: Drove Insurance: Medicare Assessment: Pt low income-pt stated no funds avail today to help with cost. Plan: Pt needs assistance to get home today. Gas Voucher Provided? Assisted pt with gas. Reviewed one time assistance Staff: Chanel Manuel [id number] documented in this encounter Plan of Treatment Upcoming Encounters Date Type Specialty Care Team Description 03/15/2022 Office Visit Neurology Ryann Barfield, SHMUEL [facility] [address] [place], [place] [address] 03/23/2022 Appointment Radiology Hailey Mcclendon MD [facility] [address] [place] [address] 03/23/2022 Laboratory Appointment Lab 03/23/2022 Office Visit Gastroenterology Hailey Mcclendon MD [facility] [address] [place] [address] 05/23/2022 Procedure visit Maxillofacial Surgery Corby Montes MD [facility] [address] [place] [address] documented as of this encounter Visit Diagnoses Not on filedocumented in this encounter Care Teams Mail Handlers Supervisor Relationship Specialty Start Date End Date Albert Zuleta MD PCP - General Family Medicine 01/17/17 10/26/21 [place] [address] documented as of this encounter
--- OUTSIDE RECORDS SUMMARY | 2022-02-08 01:52 | XMS_ITS | Encounter Summary ---
:1960 Author Organization [facility] [place] [address] Care Team Providers Name Role Phone Albert Zuleta MD Primary Care Provider Reason for Visit Reason Comments Follow-up Encounter Details Date Type Department Care Team Description 03/28/2019 Office Visit General Surgery at [facility] Ace Henry MD Postop check [facility] [place] [address] GENERAL SURGERY [phone] [place], [place] [address] (Wo rk) Social History Tobacco [...] - Inhaled Oxygen Concentration - - Weight 121.8 kg (268 lb 9.6 oz) 03/28/2019 10:54 AM EDT Height - - Body Mass Index 43.35 02/19/2019 10:28 PM EDT documented in this encounter Progress Notes Ace Henry MD - 03/28/2019 11:00 AM EDT Ms. Samayoa returns to clinic today. She underwent recent colonoscopy and was found in distal ileum to have an intact small bowel anastamosis without other worrisome pathology. She has been VASTLY improved with respect to frequent bowel movements since beginning a bile sequestering agent. She is understandably quite pleased with this. She does admit to persistent distress/anxiety with what sounds like PTSD features likely from the delirium she suffered with during her recent 12/2018 hospitalization. We spent the majority of this 40 minute office visit reviewing this and I encouraged her to seek either psychology counseling and/or psy chiatric evaluation for this very real and persistent source of distress. On exam, Wt 121.8 kg (268 lb 9.6 oz) LMP (LMP Unknown) BMI 43.35 kg/m?? She appears well and is distressed, again, only as we discuss her psychic trauma from her recent hospitalization and associated delirium. Her abdomen is soft, NT/ND, incision is well-healed without clinical hernia. CT scan from today demonstrates: 1. Interval resolution of the fluid collection in the subcutaneous fat. There is significantly improved inflammation around this although persistent plaque-like soft tissue which may be a combination of residual inflammation and fibrosis. Assessment/Plan: Ms. Samayoa is a 58 year old female with 12/2018 hospitalization for shock of unclear etiology leading to exploratory laparotomy with small bowel resection and incisional hernia repair complicated postoperatively by recurrent soft tissue fluid collections/abscesses which are now resolved clinically and radiographically. She is doing much better with her bowel function on questran. I've encouraged her to seek psychology/counselling for the anxiety she is vividly continuing to experience in an almost PTSD fashion following her recent hospitalization and was was documented as delirium.She appears to understand and agree with this plan. documented in this encounter Plan of Treatment Upcoming Encounters Date Type Specialty Care Team Description 03/15/2022 Office Visit Neurology Ryann Barfield, MEAT PROCESSOR [facility] [place] [address] 03/23/2022 Appointment Radiology Hailey Mcclendon MD [facility] [address] [place] [address] 03/23/2022 Laboratory Appointment Lab 03/23/2022 Office Visit Gastroenterology Hailey Mcclendon MD [facility] [place], [place] [address] 05/23/2022 Procedure visit Maxillofacial Surgery Corby Montes MD [facility] [place], [place] [address] documented as of this encounter Visit Diagnoses Diagnosis Postop check Follow-up examination, following unspeci fied surgery documented in this encounter Care Teams Marine Engineering Technicians Relationship Specialty Start Date End Date Albert Zuleta MD PCP - General Family Medicine 01/17/17 10/26/21 [address] [place] [address] documented as of this encounter
--- OUTSIDE RECORDS SUMMARY | 2022-02-08 01:52 | XMS_ITS | Encounter Summary ---
:1960 Author Organization [place] [address] Care Team Providers Name Role Phone Albert Zuleta MD Primary Care Provider Encounter Details Date Type Department Care Team Description 03/26/2019 Orders Only Gastroenterology at [facility] Nancy Hankins MD [facility] [place] [address] [place], [place] [address] (Wo rk) Social History Tobacco [...] 03/15/2022 Office Visit Neurology Ryann Barfield, SHMUEL [facility] [address] [place], [place] [address] 03/23/2022 Appointment Radiology Hailey Mcclendon MD [facility] [place] [address] 03/23/2022 Laboratory Appointment Lab 03/23/2022 Office Visit Gastroenterology Hailey Mcclendon MD [facility] [place] [address] 05/23/2022 Procedure visit Maxillofacial Surgery Corby Montes MD [facility] [place] [address] documented as of this encounter Visit Diagnoses Not on filedocumented in this encounter Care Teams Utility Assembler Relationship Specialty Start Date End Date Albert Zuleta MD PCP - General Family Medicine 01/17/17 10/26/21 [place] [address] documented as of this encounter
--- OUTSIDE RECORDS SUMMARY | 2022-02-08 01:52 | XMS_ITS | Encounter Summary ---
:1960 Author Organization [facility] [place] [address] Care Team Providers Name Role Phone Albert Zuleta MD Primary Care Provider Encounter Details Date Type Department Care Team Description 03/07/2019 Office Visit General Surgery at [facility] TITO Estrada MD primary [facility] [address] [place], [place] GENERAL SURGERY [address] [place] [address] [phone] (Wo rk) Social History Tobacco Use Types [...] documented as of this encounter Progress Notes Emily Mcmahon MD - 03/07/2019 1:30 PM EDT Endocrine Surgery Follow Up Note History: Ms. Samayoa is a 58-year-old woman whom I initially met on November 28, 2018 for possible primaryhyperparathyroidism. She has an extensive history of nephrolithiasis. She has had interesting lab variations with calciums from 9.9- 11.6 and PTH 39-56. She has an elevated 24-hour urine calcium of 423.She does have symptoms that may be associated with hyperparathyroidism, including fatigue, bone pain, achiness, and frequent urination. Her most recent bone density was normal. She had nonlocalizing imaging. She was seen by Dr. Galvin and Dr. Akers in multidisciplinary stone clinic in mid December, at which time additional labs were recommended to clarify her diagnosis. These were drawn on 01/01 at [facility],but her follow-up has been delayed because on 01/04, she presented in septic shock and ended up having an exploratory laparotomy and small bowel resection on 01/07. Her postoperative course has been remarkable for recurrent abdominal wall abscesses. She is being followed for this by Dr. Henry. There is no relevant interval change related to her hyperparathyroidism. No episodes of nephrolithiasis in themidst of this recent course. Calcium levels during her acute illness ranged from 9.4-10.1. More recently, it was 10.8 on 02/19 and 10.2 on 02/21. PTH has not been rechecked during this time. There were no vitals filed for this visit. NAD No cervical masses or lymphadenopathy Updated Labs (01/01/19) Ca 11.1 PTH 56 25-OH Vitamin D 24.6 1, 25-OH Vitamin D 39 A/P: Ms. Samayoa is a 58-year-old woman with a history significant for nephrolithiasis and what appears to be a normal hormonal variant of primary hyperparathyroidism. Sestamibi scan and cervical ultrasound have been nonlocalizing. The labs obtained in December support the diagnosis of primary hyperparathyroidism, as hypercalcemia related to a granulomatous disease like sarcoidosis (which she does have ahistory of) would likely be associated with a high 1, 25-OH vitamin D level, which she does not have. Her nephrolithiasis is a reason to consider operating for her hyperparathyroidism. She would require a bilateral exploration with possible subtotal parathyroidectomy. She and I have discussed this. However, I do not think there is a gallegos to do this, and I recommended that she wait until some of her ongoing abdominal abscess issues have resolved. She tells me that she has a colonoscopy planned for early March and a follow-up appointment with Dr. Henry on March 28. I will wait for him to update me on how she is doing and then we will revisit the appropriate timing for parathyroid operation. documented in this encounter Plan of Treatment Upcoming Encounters Date Type Specialty Care Team Description 03/15/2022 Office Visit Neurology Ryann Barfield, SHMUEL [facility] [address] [place], [place] [address] 03/23/2022 Appointment Radiology Hailey Mcclendon MD [facility] [address] [place] [address] 03/23/2022 Laboratory Appointment Lab 03/23/2022 Office Visit Gastroenterology Hailey Mcclendon MD [facility] [address] [place] [address] 05/23/2022 Procedure visit Maxillofacial Surgery Corby Montes MD [facility] [address] [place] [address] documented as of this encounter Visit Diagnoses Diagnosis Hyperparathyroidism, primary Primary hyperparathyroidism documented in this encounter Care Teams Industrial Arts Teacher Relationship Specialty Start Date End Date Albert Zuleta MD PCP - General Family Medicine 01/17/17 10/26/21 [place] [address] documented as of this encounter
--- OUTSIDE RECORDS SUMMARY | 2022-02-08 01:52 | XMS_ITS | Encounter Summary ---
:1960 Author Organization [facility] Address [facility] [place] [address] Care Team Providers Name Role Phone Albert Zuleta MD Primary Care Provider Encounter Details Date Type Department Care Team Description 03/26/2019 Surgery Gastroenterology at [facility] Abhinav Stacy, COLONOSCOPY, [facility] Maciel lorenzana MD POLYPECTOMY, [place] [address] [facility] ([facility] [phone] DR Corey) GASTROENTEROLOGY DEPT. [place], [place] [address] Social History Tobacco Use Types [...] Sign Reading Time Taken Comments Blood Pressure 118/69 03/26/2019 8:00 AM EDT Pulse 75 03/26/2019 8:00 AM EDT Temperature 36.8 ??C (98.2 ??F) 03/26/2019 8:00 AM EDT Respiratory Rate 20 03/26/2019 8:00 AM EDT Oxygen Saturation 100% 03/26/2019 8:00 AM EDT Inhaled Oxygen Concentration - - [...] to be checked. Sunday-Sunday Same Day Endo [phone] [id number] Otherwise contact [phone] and ask to speak to the caser up soil conservation technician Follow up care is a lindo part [...] Stacy MD - 03/26/2019 10:11 AM EDT [facility] Operative Note Patient Name: Blossom Samayoa : [id number] MR#: [id number] Case Date: 03/26/2019 Surgeon: Surgeon(s) and Role: [...] 03/15/2022 Office Visit Neurology Ryann Barfield APRN [facility] [address] [place] [address] 03/23/2022 Appointment Radiology Hailey Mcclendon MD [facility] [place] [address] 03/23/2022 Laboratory Appointment Lab 03/23/2022 Office Visit Gastroenterology Hailey Mcclendon MD [facility] [place] [address] 05/23/2022 Procedure visit Maxillofacial Surgery Corby Montes MD [facility] [address] [place] [address] documented as of [...] Component Value Ref Test Analysis Performed At [facility] Range Method Time Signature Surgical [id number] ? Location: ; [facility]; [facility] Pathology [facility] Report The signing pathologist has (i) examined [...] RUIZ, Snow Verified: ??03/28/2019 ?Pathologist Performed at: ??-[facility] Dept. of Pathology, [place], [place] DISCUSSION Part C: Muscularis mucosae p [...] MD PATHOLOGY/CYTOLOGY ORDERABLE S Performing Organization Address [facility]/[place] [address] Specimen to Pathology (03/26/2019 9:56 AM EDT) Specimen Anatomical Collection Method Collection Time Receive d Time (Source) Location / / Volume Laterality AP Specimen 03/26/2019 9:56 AM 9 9:56 EDT AM EDT Narrative [facility] OR - 03/26/2019 9:56 AM EDT Specimen requisition ordered. ??Separate Pathology report to follow Abhinav Stacy MD PATHOLOGY/CYTOLOGY ORDERABLE S Performing Organization Address City/[facility]/[place] [address] Specimen to Pathology (03/26/2019 9:56 AM EDT) Specimen Anatomical Collection Method Collection Time Receive d Time (Source) Location / / Volume Laterality AP Specimen 03/26/2019 9:56 AM 9 9:56 EDT AM EDT Narrative [facility] OR - 03/26/2019 9:56 AM EDT Specimen requisition ordered. ??Separate Pathology report to follow Abhinav Stacy MD PATHOLOGY/CYTOLOGY ORDERABLE S Performing Organization Address City/[facility] Code Phon e Number [place] [phone] Specimen to Pathology (03/26/2019 9:56 AM EDT) Specimen Anatomical Collection Method Collection Time Receive d Time (Source) Location / / Volume Laterality AP Specimen 03/26/2019 9:56 AM 9 9:56 EDT AM EDT Narrative [facility] - 03/26/2019 9:56 AM EDT Specimen requisition ordered. ??Separate Pathology report to follow Abhinav Stacy MD PATHOLOGY/CYTOLOGY ORDERABLE S Performing Organization Address City/State/ZIP Code Phon e Number [place] [phone] COLONOSCOPY (03/26/2019 8:52 AM EDT) [facility] Method Time Signature COLONOSCOPY [facility] [employer] Endoscopy Procedure Date: 03/26/2019 8:52 AM ? Patient Name: Blossom Samayoa ? Date of : 1960 ? Age: 58 ? Order #: [id number] ? Instrument Name: [id number] ? Procedure: ? Colonoscopy Indications: ? Screening [...] was evaluat ed using ? the BBPS ([place] Bowel Prepar ation ? Scale) with scores [...] will ? send a message/letter to sydney venegas with ? recommendations. ? Procedure Code(s): ?? --- Professional --- ? 42605, GC, Colonoscopy, flexi ble; ? with removal of tumor(s), adalberto yp(s), ? or other lesion(s) by douglas douglas Diagnosis Code(s): ?? --- Professional --- ? Z12.11, [facility] ? malignant ne[facility] of colon ? [...] and ? anastomosis status CPT copyright 2017 [employer]. All rights reserved. The codes documented in this report are preliminary and upon site project manager review may be revised to meet current compliance requirements. Attending Participation: ? I was present and participated during the entire ? procedure, including non-lindo portions. ? Abhinav Stacy MD 03/26/2019 10:11:29 AM This report has [...] Signature POC Glucose 130 65 - 199 [facility] mg/dL [address] Comment: Supplemental ranges: <140 mg/dL before meals <180 mg/dL all other times of the day Specimen Anatomical Collection Method Collection Time Receive d Time (Source) Location / / Volume Laterality Blood specimen 03/26/2019 8:19 AM 019 8:19 (specimen) EDT AM EDT Abhinav Stacy MD POINT OF CARE TEST ORDERABLE S Performing Organization Address City/State/[place] [address] documented in this encounter [...] Procedure) documented in this encounter Care Teams Aquacultural Worker Supervisor Relationship Specialty Start Date End Date Albert Zuleta MD PCP - General Family Medicine 01/17/17 10/26/21 [address] [place] [address] documented as of this encounter
--- OUTSIDE RECORDS SUMMARY | 2022-02-08 01:52 | XMS_ITS | Encounter Summary ---
:1960 Author Organization [facility] [place] [address] Care Team Providers Name Role Phone Albert Zuleta MD Primary Care Provider Reason for Visit Consultation (Routine) - Closed Specialty Diagnoses / Procedures Referred By Contact Refer red To Contact Gastroenterology Diagnoses hepatomegaly likely ACEVEDO Ace Henry MD [facility] Gastro 4l Procedures consult and treat [facility] [place] [address] [place] [address] Fax: Referral ID Status Reason Start Date Expiration Date Visits Requ ested Visits Authorized [id number] Closed 04/16/2019 04/15/2020 1 1 Encounter Details Date Type Department Care Team Description 06/13/2019 Office Visit Gastroenterology at [facility] Hailey Mcclendon, Hepatosplenomegaly [facility] [place] [address] [facility] [phone] [place] [address] Social History Tobacco Use Types Packs/Day Years [...] Sign Reading Time Taken Comments Blood Pressure 143/59 06/13/2019 2:48 PM EST Pulse 71 06/13/2019 2:48 PM EST Temperature - - Respiratory Rate - - Oxygen Saturation - - Inhaled Oxygen Concentration - - Weight - - Height 167.6 cm (5' 6) 06/13/2019 2:48 PM EST Body Mass Index - - documented in this encounter Progress Notes Hailey Mcclendon MD - 06/13/2019 2:30 PM EST HEPATOLOGY CONSULTATION Blossom Pacheco 1960 [employer]: Hailey Mcclendon MD ([id number]) PCP: Albert Zuleta MD Requesting Provider: [place] [address] REASON FOR CONSULTATION Hepatomegaly HISTORY OF PRESENT ILLNESS Blossom Pacheco is a 58 y.o. year old who has been referred for hepatomegaly. She reports being told that her liver is big for at least three years. She denies any previous work up. No family history of liver disease. No jaundice, ascites, or hepatic encephalopathy. She reports having episodes of CHF, last episode in 2016. She was diagnosed with sarcoidosis in 1991, based on skin biopsy. She did have lung involvement, she was treated with prednisone for 1.5 years, no recurrences. She reports a history of diarrhea back to her teenage years that has improved significantly with questran. No abdominal pain, but does notes some RUQ discomfort which is improved by elastic in this area. She had her gallbladder removed in the . No nausea or vomiting. ACEVEDO: diabetes, hypertension EtOH: none Viral hepatitis: ex- had hepatitis B, she reports that she did not respond to the hepatitis Bvaccine ROS: Constitutional: no weight loss HEENT: no visual changes, no URI symptoms Cardio: no chest pain Resp: no cough, no SOB, no LIM or orthopnea Hem/Lymph: no new lumps or bumps on body GI: see HPI : no dysuria Integumentary: no new rashes Musculoskeletal: no new joint pains Neuro: diabetes neuropathy, weakness in extremities PAST MEDICAL/SURGICAL HISTORY Patient Active Problem List Diagnosis Code ??? [...] N20.0 ??? Shock R57.9 ??? Abscess L02.91 MEDICATIONS Outpatient Medications Marked as Taking for the 06/13/19 encounter (Office Visit) with Margot Mcclendon MD Medication Sig Dispense Refill ??? acetaminophen (TYLENOL) 500 mg Tablet Take [...] TAKE ONE TABLET BY MOUTH DAILY 3 ALLERGIES Allergies Allergen Reactions ??? Ketamine Other (See Comments) Hallucinations ??? Anafranil [Clomipramine] Other (See Comments) give me the flu ??? Augmentin [Amoxicillin-Pot Clavulanate] Hives and Itching ??? Erythromycin Hives and Itching ??? Macrobid [Nitrofurantoin Monohyd/M-Cryst] Other (See Comments) Causes depression ??? Sulfa (Sulfonamide Antibiotics) Hives SOCIAL HISTORY Social History Socioeconomic History ??? Marital status: [...] Last attempt to quit: 07/23/2016 Years since quittin.8 ??? Smokeless tobacco: Never Used Substance and [...] file Gets together: Not on file Attends [employer] service: Not on file Active member of [...] Social History Narrative ??? Not on file FAMILY HISTORY There is no family history of inflammatory bowel disease or celiac disease. Sister colorectal cancerover the age of 60's. There is no history of liver disease. Family History Problem Relation Age of Onset ??? Cancer Father ??? Anesthesia Reaction Father ??? Cancer Sister Vitals: 06/13/19 1448 BP: 143/59 Pulse: 71 Height: 167.6 cm (5' 6) PHYSICAL EXAM General: Appears stated age, NAD Eyes: Normal sclera, normal conjunctiva ENT: Moist mucus membranes, normal posterior pharynx Lymph: No lymphadenopathy of the head or neck Heart: Heart sounds I and II were audible, no added sounds, no murmurs Lungs: Clear to ausculation bilaterally Abdomen: Soft, non-tender, no organomegaly, normal active bowel sounds Extremities: No peripheral edema Skin: No jaundice, no spider nevi, no palmar erythema Neuro: No asterixis, grossly intact Mental: Appropriate affect, oriented in person, place, and time RESULTS Lab Results Component Value Date WBC 8.3 02/28/2019 RBC 3.76 (L) 02/28/2019 HGB 10.8 (L) 02/28/2019 HCT 34.1 (L) 02/28/2019 MCV 90.7 02/28/2019 MCH 28.7 02/28/2019 MCHC 31.7 02/28/2019 PLATELET 266 02/28/2019 RDWCV 13.2 02/28/2019 Chemistry Component Value Date/Time NA 139 02/21/2019 0605 K 3.6 02/21/2019 0605 CL 106 02/21/2019 0605 CO2 22 02/21/2019 0605 BUN 5 (L) 02/21/2019 0605 CREATININE 0.57 (L) 02/21/2019 0605 Component Value Date/Time CALCIUM 10.2 02/21/2019 0605 ALKPHOS 108 (H) 02/19/2019 2355 AST 20 02/19/2019 2355 ALT 11 02/19/2019 2355 BILITOT 0.8 02/19/2019 2355 Results for BLOSSOM PACHECO ( ) as of 06/13/2019 14:55 07/09/2018 19:50 07/22/2018 18:03 01/04/2019 21:25 01/12/2019 11:31 02/19/2019 23:55 Total Bilirubin 1.2 0.8 1.1 0.3 0.8 Bili, Direct 0.3 0.2 0.3 0.1 0.2 Alk Phos 73 77 129 (H) 79 108 (H) AST 32 (H) 31 (H) 37 (H) 14 20 ALT 25 20 30 10 11 ASSESSMENT/PLAN #1 Hepatosplenomegaly We discussed the potential causes for her hepatosplenomegaly. She has significant risk factors for NAFLD, but steatosis was not noted on imaging and her liver enzymes are normal. She has a history of CHF, so congestive hepatopathy is a possibility. She also has a history of sarcoidosis which can be present in the liver and cause hepatomegaly and portal hypertensions. Celiac is also possible, especially with the history of a sister with gluten sensitivity. Finally, an infiltrative process such as lymphoma is also within the differential, but less likely given the chronicity of her imaging findings. We will start with serology for celiac disease and SPEP for evaluation, but discussed that a liver biopsy would be required to sort out this differential. I will also test for hepatitis B and hepatitis C given her potential prior exposure. I will call her with results once testing is complete. Hailey Mcclendon MD Hepatology and Gastroenterology [facility] RICHARD Aldridge V: [phone] Copy: Albert Zuleta MD [facility] [facility] / [facility] [id number] documented in this encounter Plan of Treatment Upcoming Encounters Date Type Specialty Care Team Description 03/15/2022 Office Visit Neurology Ryann Barfield, SHMUEL [facility] [address] [place] [address] 03/23/2022 Appointment Radiology Hailey Mcclendon MD [facility] R[place]ARD [place] [address] 03/23/2022 Laboratory Appointment Lab 03/23/2022 Office Visit Gastroenterology Hailey Mcclendon MD [facility] [address] [place] [address] 05/23/2022 Procedure visit Maxillofacial Surgery Corby Montes MD [facility] [address] [place] [address] documented as of this encounter Procedures Procedure Name Priority Date/Time Associated Diagnosis Comme nts HC HEPATITIS C ANTIBODY Routine 06/13/2019 3:45 Hepatosplenome kimberly Results for this PM EST procedure are i n the results section. HC TISSUE Routine 06/13/2019 3:45 Hepatosplenomegaly Result s for this TRANSGLUTAMINASE AB PM EST procedur e are in the results section. HC HEP B CORE AB IGM Routine 06/13/2019 3:45 Hepatosplenomegal y Results for this PM EST procedure are i n the results section. HC HEPATITIS B SURFACE Routine 06/13/2019 3:45 Hepatosplenomeg nicole Results for this AB PM EST procedure are i n the results section. HC VENIPUNCTURE Routine 06/13/2019 3:45 Hepatosplenomegaly Res ults for this PM EST procedure are i n the results section. HC SERUM PROT. Routine 06/13/2019 3:45 Hepatosplenomegaly Resu lts for this ELECTROPHORESIS PM EST procedure ar e in the results section. HC IGA, SERUM Routine 06/13/2019 3:45 Hepatosplenomegaly Resul ts for this PM EST procedure are i n the results section. HEPATIC FUNCTION PANEL Routine 06/13/2019 3:45 Hepatosplenomeg nicole Results for this PM EST procedure are i n the results section. documented in this encounter Results Hepatitis B Surface Antigen (06/13/2019 3:45 PM EST) Analysis Performed At Patho logist Time Signature HepB Surface Negative Negative [facility] LABORATORY Specimen Anatomical Collection Method Collection Time Receive d Time (Source) Location / / Volume Laterality Blood specimen 06/13/2019 3:45 PM 019 3:53 (specimen) EST PM EST Resulting Agency Comment Spec In Lab Hailey Mcclendon MD CHEMISTRY ORDERABLES Performing Organization Address City/[facility] Code Phon e Number [address] Hepatitis B Surface Antibody (06/13/2019 3:45 PM EST) P athologist Signature HepB Surface <3.5 IU/L [facility] Ab Quant [facility]OR[facility] Comment: HepB Surface Ab Quant: Unvaccinated: < 8.5 IU/L Vaccinated: > 11.5 IU/L HepB Surface Ab Negative [facility] LABORATORY Comment: Patient is presumed to be not vaccinated or immune to HBV infection. Expected Results: Vaccinated: Positive Unvaccinated: Negative Specimen Anatomical Collection Method Collection Time Receive d Time (Source) Location / / Volume Laterality Blood specimen 06/13/2019 3:45 PM 019 3:53 (specimen) EST PM EST Resulting Agency Comment Spec In Lab Hailey Mcclendon MD IMMUNOLOGY ORDERABLES Performing Organization Address City/[facility]/[place] [address] Hepatitis B Core Antibody, IgM (06/13/2019 3:45 PM EST) Analysis Performed At Patho logist Time Signature Hep B Core IgM Negative Negative [facility] LABORATORY Specimen Anatomical Collection Method Collection Time Receive d Time (Source) Location / / Volume Laterality Blood specimen 06/13/2019 3:45 PM 019 3:53 (specimen) EST PM EST Resulting Agency Comment Spec In Lab Hailey Mcclendon MD IMMUNOLOGY ORDERABLES Performing Organization Address [facility] [place] [address] Hepatitis C Antibody (06/13/2019 3:45 PM EST) Analysis Performed At Patho logist Time Signature Hepatitis C Ab Negative Negative [facility] LABORATORY Specimen Anatomical Collection Method Collection Time Receive d Time (Source) Location / / Volume Laterality Blood specimen 06/13/2019 3:45 PM 019 3:53 (specimen) EST PM EST Resulting Agency Comment Spec In Lab Hailey Mcclendon MD IMMUNOLOGY ORDERABLES Performing Organization Address City/[facility] Code Phon e Number [address] (ABNORMAL) Protein Electrophoresis, serum (06/13/2019 3:45 PM EST) [facility] gist Method Time Signature Total Prot 7.9 6.1 - 8.0 [place] Elec gm/dL [facility] Albumin Elect 5.07 3.60 - 6.00 [place] gm/dL [facility] Alpha1-Globul 0.11 0.10 - 0.30 [place] in gm/dL [facility] Alpha2-Globul 0.92 (H) 0.40 - 0.90 [place] in gm/dL [facility] Beta Globulin 0.88 0.50 - 1.00 [place] gm/dL [facility] Gamma 0.91 0.50 - 1.30 [place] Globulin gm/dL [facility] M1 Band None None [place] Detected Detected [facility] Specimen Anatomical Collection Method Collection Time Receive d Time (Source) Location / / Volume Laterality Blood specimen 06/13/2019 3:45 PM 019 3:53 (specimen) EST PM EST Resulting Agency Comment Spec In Lab Hailey Mcclendon MD CHEMISTRY ORDERABLES Performing Organization Address City/[facility]/ZIP Code Phon e Number [address] Tissue transglutaminase, IgA (06/13/2019 3:45 PM EST) athologist Signature TTG IgA Ab 0.7 0.1 - 10.0 [place] MONICA u/ml [facility] Comment: As of 2019, TTG IgA testing perform ed at [facility]. Please note reference range update. Negative = <7 U/mL Equivocal = 7-10 U/mL Positive = >10 U/mL Specimen Anatomical Collection Method Collection Time Receive d Time (Source) Location / / Volume Laterality Blood specimen 06/13/2019 3:45 PM 019 7:35 (specimen) EST AM EST Resulting Agency Comment Spec In Lab Hailey Mcclendon MD IMMUNOLOGY ORDERABLES Performing Organization Address City/[facility]/[place] [address] IgA (06/13/2019 3:45 PM EST) athologist [facility] IgA 321 70 - 400 [place] MONICA mg/dL [facility] Specimen Anatomical Collection Method Collection Time Receive d Time (Source) Location / / Volume Laterality Blood specimen 06/13/2019 3:45 PM 019 3:53 (specimen) EST PM EST Resulting Agency Comment Spec In Lab Hailey Mcclendon MD IMMUNOLOGY ORDERABLES Performing Organization Address City/[facility]/[place] [address] (ABNORMAL) Hepatic Function Panel (06/13/2019 3:45 PM EST) athologist [facility] Total Protein 8.4 (H) 6.1 - 8.0 [facility] MONICA gm/dL [facility] Albumin 4.9 3.2 - 5.2 [facility] [place] gm/dL [facility] AST 23 0 - 30 [facility] [place] unit/L [facility] ALT 28 0 - 30 [facility] [place] unit/L [facility] Alk Phos 134 (H) 35 - 105 [facility] Total 0.9 0.2 - 1.3 [facility] Bilirubin mg/dL [facility] Bili, Direct 0.2 0.0 - 0.3 [facility] Specimen Anatomical Collection Method Collection Time Receive d Time (Source) Location / / Volume Laterality Blood specimen 06/13/2019 3:45 PM 019 3:53 (specimen) EST PM EST Resulting Agency Comment Spec In Lab Hailey cMclendon MD CHEMISTRY ORDERABLES Performing Organization Address City/State/[place] [address] documented in this encounter Visit Diagnoses Diagnosis Hepatosplenomegaly Other chronic nonalcoholic liver disease documented in this encounter Care Teams Research And Development Scientist Relationship Specialty Start Date End Date Albert Zuleta MD PCP - General Family Medicine 01/17/17 10/26/[address] [address] [address] documented as of this encounter
--- OUTSIDE RECORDS SUMMARY | 2022-02-08 01:52 | XMS_ITS | Encounter Summary ---
:1960 Author Organization [facility] [place] [address] Care Team Providers Name Role Phone Albert Zuleta MD Primary Care Provider Encounter Details Date Type Department Care Team Description 02/14/2019 External Results General Surgery at [facility] [address] Social History Tobacco Use Types Packs/Day [...] Visit Neurology Ryann Barfield APRN [facility] [address] [place] [address] 03/23/2022 Appointment Radiology Hailey Mcclendon MD [facility] [address] [place] [address] 03/23/2022 Laboratory Appointment Lab 03/23/2022 Office Visit Gastroenterology Hailey Mcclendon MD [facility] [place] [address] 05/23/2022 Procedure visit Maxillofacial Surgery Corby Montes MD [facility] [place] [address] documented as of this encounter Procedures Procedure Name Priority Date/Time Associated Diagnosis Comme nts NON EXTERNAL Routine 02/07/2019 Results for this RADIOLOGY EXAM procedure are in the results section . documented in this encounter Results Non DH External Radiology Exam (02/07/2019) Anatomical Region Laterality Modality Radiographic Imaging Narrative This result has an attachment that is no t available. Historical Provider MD TEJADA DX ORDERABLES documented in this encounter Visit Diagnoses Not on filedocumented in this encounter Care Teams Nurse Special Relationship Specialty Start Date End Date Albert Zuleta MD PCP - General Family Medicine 01/17/17 10/26/21 [address] [place] [phone] documented as of this encounter
--- OUTSIDE RECORDS SUMMARY | 2022-02-08 01:52 | XMS_ITS | Encounter Summary ---
:1960 Author Organization [facility] [place] [address] Care Team Providers Name Role Phone Albert Zuleta MD Primary Care Provider Encounter Details Date Type Department Care Team Description 02/20/2019 Ancillary Procedure [place] [address] Social History Tobacco Use Types Packs/Day [...] [facility] [address] [place] [place] [address] 03/23/2022 Appointment Radiology Hailey Mcclendon MD [facility] [address] [place] [address] 03/23/2022 Laboratory Appointment Lab 03/23/2022 Office Visit Gastroenterology Hailey Mcclendon MD [facility] [place], [place] [address] 05/23/2022 Procedure visit Maxillofacial Surgery Corby Montes MD [facility] [place], [place] [address] documented as of this encounter Procedures Procedure Name Priority Date/Time Associated Diagnosis Comme nts REQUEST FOR 2ND Routine 02/20/2019 1:28 AM Result s for this READ CT ABDOMEN AND EDT procedur e are in PELVIS the results section. documented in this encounter Results Request For 2nd Read CT Abdomen & [...] For questions regarding this report, please contact [facility] number below. cAe Henry MD IMG OUTSIDE INTERPRETATION O RDERABLES documented in this encounter Visit Diagnoses Not on filedocumented in this encounter Care Teams Ivory Polisher Relationship Specialty Start Date End Date Albert Zuleta MD PCP - General Family Medicine 01/17/17 10/26/21 [address] [place] [address] documented as of this encounter
--- OUTSIDE RECORDS SUMMARY | 2022-02-08 01:52 | XMS_ITS | Encounter Summary ---
:1960 Author Organization [facility] Address [address] [place] [address] Care Team Providers Name Role Phone Albert Zuleta MD Primary Care Provider Encounter Details Date Type Department Care Team Description 03/26/2019 Anesthesia Event Gastroenterology at [facility] Ted Colbert, [facility] [place] [address] [facility] [phone] DR ANESTHESIOLOGY [place], [place] [address] Anesthesia Record Procedure Summary Procedure Name Responsible Anesthesia Start Anesthesia Stop Time Anesthesiologist Time COLONOSCOPY, Ted Colbert MD 03/26/19 0904 03/26/19 100 5 POLYPECTOMY, REMOVAL LESION BY SNARE (WRVU 4.67) (N/A Trunk) Events Date Time Event Comment 03/26/2019 0835 0904 AN Verify 0904 Start 0906 An Start Data 0909 An Induction 0913 Anesthesia Ready 0913 Break/Relief In CEDRICK WALKER CRNA 1001 an stop data 1005 Recovery or ICU Handoff Patient care was transferred to the destination unit staff after review of the patient's medica l history, current anesthetic/surgi beverley status and plan, according to the Provider Handoff Checklist. 1005 Stop Name Total IV Lidocaine 60 mg Propofol 90 mg Propofol INF 943.26 mg PHENYLephrine 320 mcg lactated ringers infusion 400 mL Agents Name O2 Air N2O Blood No blood administrations on file. Lines, Drains, and Airways Type Details Placement Removal Incision 03/07/19; 1007; abdomen; 03/07/19 1007 by Jermain , 07/01/19 0910 by Lul, laparoscopic punctures BRYAN Sanchez R N (specify) (drain removal site); LDA not present upon assessment; 07/01/19; 0910 PIV 03/26/19; 0823; metacarpal 03/26/19 0823 by Domo in, 03/26/19 1033 by Samuel, vein (top of hand), right; BRYAN Garcia RN azip-dzo-fuuehp catheter system; 20 gauge; Casimiro Gould RN; distraction; no longer indicated; 03/26/19; 1033 documented in this encounter Social History Tobacco [...] encounter OR Notes Anesthesia Postprocedure Evaluation - Ted Colbert MD - 03/26/2019 10:09 AM EDT Department of Anesthesiology Post-procedure Note Patient: Blossom Samayoa Procedure Summary Date: 03/26/19 Room / Location: [facility] ENDO 2 / [facility] ENDOSCOPY Anesthesia Start: 903 Anesthesia Stop: 1004 Procedure: COLONOSCOPY, POLYPECTOMY, REMOVAL LESION BY SNARE (WRVU 4.67) (N/A Trunk) Diagnosis: (colo screening) (Prep- Split) Surgeon: Abhinav Stacy MD Responsible Provider: Ted Colbert MD Anesthesia Type: MAC ASA Status: 3 All Anesthesia Providers: Anesthesiologist: Ted Colbert MD AIRLINE MECHANIC: Santy, Hola S, AIRLINE MECHANIC Vitals Value Taken Time BP 92/62 03/26/2019 10:02 AM Temp Pulse 73 03/26/2019 10:02 AM Resp 18 03/26/2019 10:02 AM SpO2 98 % 03/26/2019 10:08 AM Pain Level 0 03/26/2019 10:02 AM Vitals shown include unvalidated device data. Patient Location: PACU/[facility] Level of Consciousness: Awake and Alert Pain Management: Satisfactory Analgesia PONV: None Cardiovascular Status: At Baseline Respiratory Status: At Baseline Postoperative Fluid Status: Intravascular EUvolemia Possible Anesthetic Complications: NONE apparent at time of evaluation Final Primary Anesthesia Type: MAC (The anesthetic type performed was the same as planned.) Comments: Anesthesia Preprocedure Evaluation - Ted Colbert MD - 03/26/2019 8:03 AM EDT Pre-Anesthesia Evaluation for: Blossom Samayoa a 58 y.o. female. Procedure(s): COLONOSCOPY, DIAGNOSTIC Patient Active Problem List Diagnosis ??? Abscess [...] ??? CHF (congestive heart failure) diag 2017 [facility] ??? Chronic lung disease sarcoidosis ??? [...] All Drainage Procedures 02/20/2019 Corby Flor MD [facility] INTERVENTIONL RAD ??? IR DRAIN CHECK/CHANGE/REMOVE 03/07/2019 IR Drain Check/Change/Remove 03/07/2019 Albert Mendez MD [facility] INTERVENTIONL RAD ??? PRG ECHOENCEPHALOGRAPH REAL TIME Left 11/07/2018 ULTRASOUND USE (WRVU 0.63) performed by Crow Galvin Jr., MD at [facility] OR ??? PRG FLUOROSCOPY EXAM UP TO 1 HR PHY OR OTH HLTH CARE PROV N/A 09/26/2018 FLUOROSCOPY (WRVU 0.17) performed by Crow Galvin Jr., MD at [facility] OR ??? PRG FLUOROSCOPY EXAM UP TO 1 HR PHY OR OTH HLTH CARE PROV N/A 11/07/2018 FLUOROSCOPY (WRVU 0.17) performed by Crow Galvin Jr., MD at [facility] OR ??? PRG US GUIDE INTRAOP Right 09/26/2018 ULTRASONIC GUIDANCE, INTRAOP (WRVU 1.2) performed by Crow Galvin Jr., MD at [facility] OR ? ? PRO CYSTO W URETEROSCOPY &/OR PYELOSCOPY, DX Right 09/26/2018 CYSTOURETEROSCOPY, DIAGNOSTIC (WRVU 5.75) performed by Crow Galvin Jr., MD at [facility] OR ? ? PRO CYSTO W URETEROSCOPY &/OR PYELOSCOPY, DX Left 11/07/2018 CYSTOURETEROSCOPY, DIAGNOSTIC (WRVU 5.75) performed by Crow Galvin Jr., MD at [facility] OR ??? PRO CYSTOSCOPY, INSERT URETERAL STENT Right 07/10/2018 CYSTO, STENT PLACEMENT (WRVU 2.82) performed by Viky Sears MD at [facility] OR ??? PRO CYSTOSCOPY, REMV CALCULUS, COMPLIC Right 09/26/2018 CYSTO, REMOVAL OF STENT, FOREIGN BODY, CALCULUS, COMPLICATED (WRVU 5.2) performed by Crow Galvin MD at [facility] OR ??? PRO CYSTOURETHROSCOPY, URETER CATHETER Right 07/10/2018 CYSTO, RETROGRADE, URETEROPYELOGRAPHY (WRVU 2.37) performed by Viky Sears MD at [facility] OR ??? PRO CYSTOURETHROSCOPY, URETER CATHETER Right 09/26/2018 CYSTO, RETROGRADE, URETEROPYELOGRAPHY, W/PCNL (WRVU 2.37) performed by Crow Galvin Jr., MD at [facility] OR ??? PRO EXPLORATORY OF ABDOMEN N/A 01/05/2019 @EXPLORATORY LAPAROTOMY, WITH/WITHOUT BIOPSY(S) (WRVU 12.54) performed by Ace Henry MD at [facility] OR ??? PRO EXPLORATORY OF ABDOMEN N/A 01/07/2019 @EXPLORATORY LAPAROTOMY, WITH/WITHOUT BIOPSY(S) (WRVU 12.54) performed by Ace Henry MD at [facility] OR ??? PRO FREEING BOWEL ADHESION, ENTEROLYSIS N/A 01/05/2019 @LYSIS OF ADHESIONS, ABD. (WRVU 18.46) performed by Ace Henry MD at [facility] OR ? ? PRO PERCUTANEOUS NEPHROSTOLITHOTOMY/PYELOSTOLITHOTOMY > 2 CM Right 09/26/2018 NEPHROLITHOTOMY, (PCNL) PERCUTANEOUS, OVER 2CM (WRVU 23.5) performed by Crow Galvin Jr., MD at [facility] OR ? ? PRO PERCUTANEOUS NEPHROSTOLITHOTOMY/PYELOSTOLITHOTOMY > 2 CM Left 11/07/2018 NEPHROLITHOTOMY, (PCNL) PERCUTANEOUS, OVER 2CM (WRVU 23.5) performed by Crow Galvin Jr., MD at [facility] OR ? ? PRO PLMT NEPHROSTOMY CATH PRQ NEW ACCESS RS&I Right 09/26/2018 NEPHROSTOMY CATHETER, PERC, INC DX NEPHROSTOGRAM/URETEROGRAM, IMG GUIDANCE (WRVU 4.25) performed byKamar Crow M Jr., MD at [facility] MAIN OR ? ? PRO [facility] NEPHROSTOMY CATH PRQ NEW ACCESS RS&I Left 11/07/2018 NEPHROSTOMY CATHETER, PERC, INC DX NEPHROSTOGRAM/URETEROGRAM, IMG GUIDANCE (WRVU 4.25) performed Crow Snyder Jr., MD at [facility] MAIN OR ??? PRO RENAL ENDOSCOPY, TREATMENT Left 11/07/2018 RENAL ENDOSCOPY W\FULG, W\WO\BX, VIA NEPHROSTOMY (WRVU 6.61) performed by Crow Galvin Jr., MD [facility] MAIN OR ??? PRO RESECT SMALL INTEST, SINGL RESEC/ANAS N/A 01/07/2019 @BOWEL RESECTION, SMALL INTESTINE SINGLE ANASTOMOSIS (WRVU 20.82) performed by Ace Henry MD at [facility] MAIN OR Social History Tobacco Use ??? Smoking status: Former Smoker Packs/day: 1.00 Years: 30.00 Pack years: 30.00 Types: Cigarettes Last attempt to quit: 07/23/2016 Years since quittin.6 ??? Smokeless tobacco: Never Used Substance Use Topics ??? Alcohol use: No Frequency: Never Comment: 3 X a year Social History Substance and Sexual Activity Drug Use Yes ??? Types: Marijuana, Pain Pills Comment: rarely used, once every few months Allergies Allergen Reactions ??? Ketamine Other (See [...] file to calculate BMI. Airway Assessment: Mallampati: I TM distance: >3 FB Neck ROM: full Cardiovascular Assessment: Rhythm: regular Rate: normal cardiovascular exam normal Pulmonary Assessment: breath sounds clear to auscultation pulmonary exam normal Dental Assessment: - normal exam Misc Assessment: IV access: Peripheral line Anesthesia Plan: ASA 3 MAC, with a(n) intravenous induction 58 y.o. 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 ECG: SR with 1st degree AVB (LBBB noted on prior ECG no longer present) Impression/Plan: ASA 3 MAC/Propofol sedation; routine monitors Risks, plans, and procedures discussed with patient who understands and consents; questions answered Region - Other Informed Consent: Anesthetic plan and risks discussed with patient. Use of blood products discussed with patient who consented to blood products. Plan discussed with AIRLINE MECHANIC. PAT Clinic Note documented in this encounter Plan of Treatment Upcoming Encounters Date Type Specialty Care Team Description 03/15/2022 Office Visit Neurology Ryann Barfield, [facility] [address] [place], [place] [address] 03/23/2022 Appointment Radiology Hailey Mcclendon MD [facility] [place] [address] 03/23/2022 Laboratory Appointment Lab 03/23/2022 Office Visit Gastroenterology Hailey Mcclendon MD [facility] [place] [address] 05/23/2022 Procedure visit Maxillofacial Surgery Corby Montes MD [facility] [address] [place] [address] documented as of this encounter Visit Diagnoses Not on filedocumented in this encounter Administered Medications Inactive Administered Medications - up to 3 most recent administrations Medication Order MAR Action Action Date Dose Rate Site lactated ringers infusion New Bag 03/26/2019 9:04 AM EDT 100 mL/hr, Intravenous, CONTINUOUS, Starting on Sun03/26/19 at 0815, Until Sun03/26/19 at 1238, Endoscopy (Day of Procedure) lidocaine (PF) (XYLOCAINE) 100 mg/5 mL (2 %) Given 9 9:09 AM EDT 60 mg injection PRN, Starting on Sun03/26/19 at 0909, Until Sun03/26/19 at 1005, Anesthesia Intra-op, Routine PHENYLephrine in NS (PF) (JOCELYN-SYNEPHRINE) 0.8 Given 9:46 AM EDT 80 mcg mg/10 mL (80 mcg/mL) multi-dose injection Syrg PRN, Starting on Sun03/26/19 at 0924, Until Sun03/26/19 at 1005, Anesthesia Intra-op, Routine Given 03/26/2019 9:39 AM EDT 80 mcg Given 03/26/2019 9:33 AM EDT 80 mcg propofol (DIPRIVAN) 10 mg/mL bolus injection Given 9 9:15 AM EDT 20 mg (Anesthesia) PRN, Starting on Sun03/26/19 at 0909, Until Sun03/26/19 at 1005, Anesthesia Intra-op Given 03/26/2019 9:12 AM EDT 50 mg Given 03/26/2019 9:09 AM EDT 20 mg propofol (DIPRIVAN) Rate/Dose 03/26/2019 9:46 125 mcg/kg/min 92.2 mL /hr infusion Change AM EDT CONTINUOUS PRN, Starting on Sun03/26/19 at 0909, Until Sun03/26/19 at 1005, Anesthesia Intra-op, Routine Rate/Dose Change 03/26/2019 9:29 AM EDT 150 mcg/kg/min 110.6 mL/hr New Bag 03/26/2019 9:09 AM EDT 200 mcg/kg/min 147.5 mL/hr documented in this encounter Care Teams Oxygen Tank Filler Relationship Specialty Start Date End Date Albert Zuleta MD PCP - General Family Medicine 01/17/17 10/26/21 [address] [place] [address] documented as of this encounter
--- OUTSIDE RECORDS SUMMARY | 2022-02-08 01:52 | XMS_ITS | Encounter Summary ---
:1960 Author Organization [facility] [place] [address] Care Team Providers Name Role Phone Albert Zuleta MD Primary Care Provider Encounter Details Date Type Department Care Team Description 03/17/2019 Telephone General Surgery at [facility] Damaris Blackburn, [place] [address] Social History Tobacco Use Types Packs/Day [...] this encounter Miscellaneous Notes Telephone Encounter - Damaris Blackburn RN - 03/17/2019 8:44 AM EDT Nursing Triage - Phone Note DATE OF CALL: 03/17/2019 TIME OF CALL: 8:45 AM PATIENT DATE OF : 1960 CALLER: RN to the general surgery clinic Learning Needs Assessment Reviewed: Yes SUBJECTIVE - How are you doing, you have an upcoming appointment with Dr Henry. PERTINENT PAST MEDICAL HISTORY: PT is s/p ?? Procedures: Operations: Procedure(s) with comments: @EXPLORATORY LAPAROTOMY, WITH/WITHOUT BIOPSY(S) (WRVU 12.54) - ABDOMINAL WALL CLOSURE @BOWEL RESECTION, SMALL INTESTINE SINGLE ANASTOMOSIS (WRVU 20 NURSING OBJECTIVE/ASSESSMENT: Pt also had a IR drain placed. Pt does not have the sharp shooting pains anymore. She reports low grade fevers 98 mostly. Pt is having continued loose stools, sometimes watery. She has been checked multiple times for C-diff the most recent 2 weeks ago and that was Negative, they have always been negative. INTERVENTION/PLAN/ FOLLOW UP: PT has a f/u appointment on 03/28/[address] Henry with a CT prior. PT in agreement of plan If your symptoms do not improve, or they worsen, report to your local emergency department. CALLER AGREES: Yes PCP: Albert Zuleta MD documented in this encounter Plan of Treatment Upcoming Encounters Date Type Specialty Care Team Description 03/15/2022 Office Visit Neurology Ryann Barfield, [facility] [address] [place] [address] 03/23/2022 Appointment Radiology Hailey Mcclendon MD [facility] [address] [place] [address] 03/23/2022 Laboratory Appointment Lab 03/23/2022 Office Visit Gastroenterology Hailey Mcclendon MD [facility] [address] [place] [address] 05/23/2022 Procedure visit Maxillofacial Surgery Corby Montes MD [facility] [address] [place] [address] documented as of this encounter Visit Diagnoses Not on filedocumented in this encounter Care Teams Digester Hand Relationship Specialty Start Date End Date Albert Zuleta MD PCP - General Family Medicine 01/17/17 10/26/21 [address] [place] [address] documented as of this encounter
--- OUTSIDE RECORDS SUMMARY | 2022-02-08 01:52 | XMS_ITS | Encounter Summary ---
:1960 Author Organization [place] [address] Care Team Providers Name Role Phone Albert Zuleta MD Primary Care Provider Encounter Details Date Type Department Care Team Description 02/25/2019 Telephone Infectious Disease Leon Barth, [facility] [place] [address] [facility] [phone] [place], [place] [address] (Wo rk) Social History Tobacco [...] this encounter Miscellaneous Notes Telephone Encounter - Leon Barth MD - 02/25/2019 11:57 AM EDT Ms. Samayoa called to report a vaginal yeast infection that has not responded to topical therapy. I prescribed fluconazole 150mg PO x1 with dispensing of a 2nd pill that can be taken 72 hours later if the symptoms have not fully resolved. Should her symptoms persist despite these two doses, I have asked for her to call back to discuss next steps. Leon Barth MD documented in this encounter Plan of Treatment Upcoming Encounters Date Type Specialty Care Team Description 03/15/2022 Office Visit Neurology Ryann Barfield APRN [facility] [address] [place], [place] [address] 03/23/2022 Appointment Radiology Hailey Mcclendon MD [facility] [address] [place] [address] 03/23/2022 Laboratory Appointment Lab 03/23/2022 Office Visit Gastroenterology Hailey Mcclendon MD [facility] [place] [address] 05/23/2022 Procedure visit Maxillofacial Surgery Corby Montes MD [facility] [place] [address] documented as of this encounter Visit Diagnoses Diagnosis Vaginal yeast infection Candidiasis of vulva and vagina documented in this encounter Care Teams Sub Assembly Team Worker Relationship Specialty Start Date End Date Albert Zuleta MD PCP - General Family Medicine 01/17/17 10/26/21 [place] [address] documented as of this encounter
--- OUTSIDE RECORDS SUMMARY | 2022-02-08 01:52 | XMS_ITS | Encounter Summary ---
:1960 Author Organization [facility] [place] [address] Care Team Providers Name Role Phone Albert Zuleta MD Primary Care Provider Reason for Referral Diagnostic Test (Routine) - Closed Specialty Diagnoses / Procedures Referred By Contact Refer red To Contact Radiology Diagnoses Postop check Ace Henry MD [facility] Rad Ct Scan Procedures CT Abdomen & Pelvis w Contrast [facility] [place] [address] [place] [address] Referral ID Status Reason Start Date Expiration Date Visits V isits Requested Authorized [id number] Closed Specialty 03/07/2019 03/06/2020 1 1 Service Requested Reason for Visit Reason Comments Follow-up Encounter Details Date Type Department Care Team Description 03/07/2019 Office [facility] Ace Henry MD Postop check [facility] [place] [address] GENERAL SURGERY [phone] [place], [place] [address] (Wo rk) Social History Tobacco [...] - Inhaled Oxygen Concentration - - Weight 122.9 kg (270 lb 14.4 oz) 03/07/2019 12:02 PM EDT Height - - Body Mass Index 43.72 02/19/2019 10:28 PM EDT documented in this encounter Progress Notes Ace Henry MD - 03/07/2019 11:45 AM EDT Ms. Samayoa returns to clinic today. Jaxson Ramos MD - 03/07/2019 11:45 AM EDT General Surgery Outpatient Clinic Visit Blossom Samayoa is a 58 y.o. female with history of sarcoidosis, NIDDM, COPD, and CAD who presented with septic shock and respiratory failure of unclear etiology found to have an incarcerated ventral hernia s/p exploratory laparotomy and SBR on 01/07/19, who has subsequently developed recurrent abdominal wall abscesses. She initially had a steve drain placed at the time of surgery, then [facility], and most recently an IR drain placed on 02/20/19, with cultures growing enterococcus. She presents today for follow up. She underwent a drain study with radiology today that demonstratedthat the pigtail catheter was not in a cavity and it was subsequently removed today. Overall, she reports that she feels well. She does have ongoing diarrhea anywhere from 5-14 times per day. She is taking a heaping tablespoon of metamucil and imodium to assist with decreasing bowel frequency, but this only provides intermittent relief. She continues to have frequent bowel movements that wake her up from sleep and she often has to spend time cleaning up any accidents, which has been quite disruptiveto her sleep. She does note that she has a long history of intermittent diarrhea dating back to her teen years, but things have become significantly worse since her surgery. She is otherwise toleratingPO intake. She feels that the site around her incision has changed in distribution and become more lumpy, but has not increased in size. She denies any pain over the site. She denies nausea and vomiting. She denies fevers or chills, temperature has been around 98 Farenheit. Physical Exam: Gen: NAD, pleasant and interactive HEENT: no scleral icterus Resp: normal work of breathing Abd: soft, well healed incision with area of lobular firmness under the incision, no overlying erythema. No hernia appreciated. Drain absent. Ext: no cyanosis or edema Neuro: alert and oriented, moving all extremities C. Diff screen from 02/28/19 - negative (in scanned records) Assessment/Plan: Ms. Samayoa??is a 58 y.o.??female??with history of sarcoidosis, NIDDM, COPD, and CAD s/p exploratorylaparotomy and small bowel resection on 01/07/19 presenting with recurrent abdominal wall abscess s/pIR drain placement on 02/20/19 with cultures growing enterococcus, now s/p drain removal today 03/07. She continues to have significant diarrhea, despite use of metamucil and imodium. Suspect that her baseline diarrhea may be worsened in the setting of small bowel resection and multiple courses of antibiotics. At this time, this trial lomotil to decrease bowel movements. Will continue to monitor and obtain CT scan as outpatient to evaluate for resolution. - Trial lomotil to see if diarrhea improves - Agree with colonoscopy as scheduled with gastroenterology - Plan to obtain CT abdomen/pelvis to evaluate collection - Return to clinic as scheduled on 03/28 or earlier if symptoms arise Patient seen and plan discussed with Dr. Henry. Jaxson Ramos MD Patient seen and examined by me. Agree with above note as written. Ace Henry MD #[id number] documented in this encounter Plan of Treatment Upcoming Encounters Date Type Specialty Care Team Description 03/15/2022 Office Visit Neurology Ryann Barfield APRN [facility] [place] [address] 03/23/2022 Appointment Radiology Hailey Mcclendon MD [facility] [address] [place] [address] 03/23/2022 Laboratory Appointment Lab 03/23/2022 Office Visit Gastroenterology Hailey Mcclendon MD [facility] [address] [place] [address] 05/23/2022 Procedure visit Maxillofacial Surgery Corby Montes MD [facility] [address] [place] [address] documented as of this encounter Results CT Abdomen & Pelvis [...] For questions regarding this report, please contact [facility] number below. Ace Henry MD IMG CT ORDERABLES documented in this encounter Visit Diagnoses Diagnosis Postop check Follow-up examination, following unspeci fied surgery Postop check Follow-up examination, following unspeci fied surgery documented in this encounter Care Teams Elevator Dispatcher Relationship Specialty Start Date End Date Albert Zuleta MD PCP - General Family Medicine 01/17/17 10/26/21 [address] [place] [address] documented as of this encounter
--- OUTSIDE RECORDS SUMMARY | 2022-02-08 01:52 | XMS_ITS | Encounter Summary ---
:1960 Author Organization [facility] [place] [address] Care Team Providers Name Role Phone Albert Zuleta MD Primary Care Provider Encounter Details Date Type Department Care Team Description 02/19/2019 Ancillary Procedure Radiology Library at Ace Henry MD [facility] [place] [address] [place] [address] [phone] (Wo rk) Social History Tobacco Use Types [...] Ryann Barfield, [facility] NEUROLOGY [place], [place] [address] 03/23/2022 Appointment Radiology Hailey Mcclendon [...] Diagnosis Comme nts FILM LIBRARY Routine 02/19/2019 7:50 PM Results f or this STORAGE ONLY DX EDT procedure ar e in CHEST the results section. documented in this encounter Results Film Library- Storage Only DX Chest (02/19/2019 7:50 PM EDT) Specimen (Source) Anatomical Location Collection Method / Collectio n Time Received Time / Laterality Volume Narrative RAD - 02/19/2019 7:50 PM EDT This exam is auto-finalizing. It's purpo se is for storage only. Ace Henry MD IMG FILM LIBRARY ORDERABLES Performing Organization Address City/State/ZIP Code Phon e Number [place], [place] documented in this encounter Visit Diagnoses Not on filedocumented in this encounter Care Teams Drug Enforcement Administration Agent Relationship Specialty Start Date End Date Albert Zuleta MD PCP - General Family Medicine 01/17/17 10/26/21 [address] [place] [address] documented as of this encounter
--- OUTSIDE RECORDS SUMMARY | 2022-02-08 01:52 | XMS_ITS | Encounter Summary ---
:1960 Author Organization [facility] [address] Care Team Providers Name Role Phone Albert Zuleta MD Primary Care Provider Encounter Details Date Type Department Care Team Description 06/13/2019 Office Visit General Surgery at Emily Mcmahon, [facility] MD Sean primary [facility] [address] [place] GENERAL SURGERY [address] [place] [address] [phone] (Wo rk) Social History Tobacco Use Types [...] Time Taken Comments Blood Pressure 143/59 06/13/2019 11:26 AM EST Pulse 71 06/13/2019 11:26 AM EST Temperature 36.6 ??C (97.8 ??F) 06/13/2019 11:26 AM EST Respiratory Rate 18 06/13/2019 11:26 AM EST Oxygen Saturation 98% 06/13/2019 11:26 AM EST Inhaled Oxygen Concentration - - Weight - - Height - - Body Mass Index - - documented in this encounter Progress Notes Emily Mcmahon MD - 06/13/2019 11:15 AM EST Endocrine Surgery Follow Up Note HPI: Ms. Samayoa is a 58-year-old woman well known to me whom I initially met on November 28, 2018 for possible primary hyperparathyroidism. She has an extensive history of nephrolithiasis. She has had interesting lab variations with calciums from 9.9-11.6 and PTH 39-56. She has an elevated 24-hour urine calcium of 423mg/day. She does have symptoms that may be associated with hyperparathyroidism, includingfatigue, bone pain, achiness, and frequent urination. Her most recent bone density was normal. She has had nonlocalizing imaging. She was seen by Dr. Galvin and Dr. Akers in multidisciplinary stone clinic in mid December, at which time additional labs were recommended to clarify her diagnosis. These [facility] on [facility] at [facility], but her follow-up has been delayed because on 01/04, she presented in septic shock and ended up having an exploratory laparotomy and small bowel resection on 01/07. Her postoperative course was remarkable for recurrent abdominal wall abscesses. She is being followed for this by Dr. Henry. There is no relevant interval change related to her hyperparathyroidism. No episodes of nephrolithiasis in the midst of this recent course. Calcium levels during her acute illness ranged from 9.4-10.1. More recently, it was 10.8 on 02/19 and 10.2 on 02/21. PTH has not been rechecked during this time. She is doing much better now from an abdominal standpoint and would like to proceed with her parathyroidectomy at this time. She presents today to discuss further. Most Recent Vitals: 06/13/19 1126 BP: 143/59 Pulse: 71 Resp: 18 Temp: 36.6 ??C (97.8 ??F) SpO2: 98% PainSc: 0 - No pain NAD Thyroid normal to palpation No cervical masses or lymphadenopathy Labs: none recent; summarized in HPI Ultrasound: I briefly repeated a targeted cervical ultrasound today in clinic. Her thyroid is normalin appearance. The hyperechoic left central neck mass persists unchanged. It appears to have a smallcentral cystic component. Today I measured it at 1.04 x 0.51 x 0.85cm, which is nearly identical to the measurements in November (1.05 x 0.48 x 0.75cm) A/P: Ms. Samayoa is a 58-year-old woman with a history significant for nephrolithiasis and what appears to be a normal hormonal variant of primary hyperparathyroidism. Sestamibi scan and cervical ultrasound have been nonlocalizing (there is a finding in the left central neck--pictured above--that is not classic for a parathyroid). The labs obtained in December support the diagnosis of primary hyperparathyroidism, as hypercalcemia related to a granulomatous disease like sarcoidosis (which she does have ahistory of) would likely be associated with a high 1, 25-OH vitamin D level, which she does not have. Her nephrolithiasis is an indication for surgery. She will likely require a bilateral exploration with possible subtotal parathyroidectomy, and we have discussed this extensively. She feels ready to proceed with surgery. She is still having some PTSD-type symptoms related to her hospitalization over the summer. We will plan to admit her for overnight observation since she lives alone and has a limited support system. Due to her past experience, she requests not to be admitted to 1E. We should be able to accommodate this without too much difficulty, as my patients are rarely placed there. Since I am booking out into late July, I will ask her to see her PCP for a pre-operative H&P within 30 d ays of surgery. documented in this encounter Miscellaneous Notes Addendum Note - Damaris Blackburn RN - 06/13/2019 11:15 AM EST Addended by: DAMARIS BLACKBURN on: 06/20/2019 06:25 AM Modules accepted: Orders documented in this encounter Plan of Treatment Upcoming Encounters Date Type Specialty Care Team Description 03/15/2022 Office Visit Neurology Ryann Barfield APRN [facility] [address] [place], [place] [address] 03/23/2022 Appointment Radiology Hailey Mcclendon MD [facility] [address] [place] [address] 03/23/2022 Laboratory Appointment Lab 03/23/2022 Office Visit Gastroenterology Hailey Mcclendon MD [facility] [address] [place] [address] 05/23/2022 Procedure visit Maxillofacial Surgery Corby Montes MD [facility] [address] [place] [address] documented as of this encounter Visit Diagnoses Diagnosis Hyperparathyroidism, primary Primary hyperparathyroidism documented in this encounter Care Teams Carpenter Bridge Relationship Specialty Start Date End Date Albert Zuleta MD PCP - General Family Medicine 01/17/17 10/26/21 [address] [place] [address] documented as of this encounter
--- OUTSIDE RECORDS SUMMARY | 2022-02-08 01:52 | XMS_ITS | Encounter Summary ---
:1960 Author Organization [facility] [place] [address] Care Team Providers Name Role Phone Albert Zuleta MD Primary Care Provider Reason for Visit Reason Comments Follow-up Wound Check Encounter Details Date Type Department Care Team Description 02/28/2019 Office Visit General Surgery at Ace Henry MD Diarrhea, unspecified [facility] type [facility] [address] GENERAL SURGERY [place] [id number] [phone] [address] [phone] Social History Tobacco Use Types Packs/Day Years [...] Sign Reading Time Taken Comments Blood Pressure 134/68 02/28/2019 9:59 AM EDT Pulse 66 02/28/2019 9:59 AM EDT Temperature 36.8 ??C (98.3 ??F) 02/28/2019 9:59 AM EDT Respiratory Rate 16 02/28/2019 9:59 AM EDT Oxygen Saturation 100% 02/28/2019 9:59 AM EDT Inhaled Oxygen Concentration - - Weight 123.4 kg (272 lb) 02/28/2019 9:59 AM EDT Height - - Body Mass Index 43.9 02/19/2019 10:28 PM EDT documented in this encounter Progress Notes Jaxson Ramos MD - 02/28/2019 10:00 AM EDT Images from the original note were not included. General Surgery Outpatient Clinic Note Blossom Samayoa is a 58 y.o. female [...] of surgery, then [facility], and most recently an IR drain placed on 02/20/19, with cultures growing enterococcus. She presents for follow up today. Overall, she reports that she feels quite well. She has been able to perform numerous household activities without fatigue, including washing the floors and dishes. She does report that she continues to have significant diarrhea, multiple times per day, up to 20 times on certain days, despite taking metamucil three times daily and imodium. She denies any fevers, chills, or abdominal pain. She did have a yeast infection for which she was prescribed fluconazole by Dr. Barth with resolution of symtoms. She has been trying to eat a well balanced diet and has lost 3 more pounds. She does note that there is still an area of firmness around her incision that may have changed shape. She has only had scant output from her BIANCA drain since Sunday, but it continues to hold suction. Past Medical History: Diagnosis Date ??? Asthma ??? Bowel disease IBS ??? CHF (congestive heart failure) diag 2017 MCR ??? Chronic lung disease sarcoidosis ??? [...] failure 'don't know if it's failure ??? 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 Mental health problem ??? Obstructive sleep apnea diag 2007 ??? Osteoma of ear canal ??? Vertigo balance prob,last fall early Jun. Past Surgical History: Procedure Laterality Date ??? PRG ECHOENCEPHALOGRAPH REAL TIME Left 11/07/2018 ULTRASOUND USE (WRVU 0.63) performed by Crow Galvin Jr., MD at [facility] OR ??? PRG FLUOROSCOPY EXAM UP TO 1 HR [facility] N/A 09/26/2018 FLUOROSCOPY (WRVU 0.17) performed by Crow Galvin Jr., MD at [facility] OR ??? PRG FLUOROSCOPY EX[facility] UP TO 1 HR [facility] N/A 11/07/2018 FLUOROSCOPY (WRVU 0.17) performed by Crow Galvin Jr., MD at [facility] OR ??? PRG US GUIDE INTRAOP Right 09/26/2018 ULTRASONIC GUIDANCE, INTRAOP (WRVU 1.2) performed by Crow Galvin Jr., MD at [facility] OR ? ? PRO CYSTO W URETEROSCOPY &/OR PYELOSCOPY, DX Right 09/26/2018 CYSTOURETEROSCOPY, DIAGNOSTIC (WRVU 5.75) performed by Crow Galvin Jr., MD at [facility] OR ? ? PRO CYSTO W URETEROSCOPY &/OR PYELOSCOPY, DX Left 11/07/2018 CYSTOURETEROSCOPY, DIAGNOSTIC (WRVU 5.75) performed by Crow Galvin Jr., MD at [facility] OR ??? PRO CYSTOSCOPY, INSERT URETERAL STENT Right 07/10/2018 CYSTO, STENT PLACEMENT (WRVU 2.82) performed by Viky Sears MD at [facility] OR ??? PRO CYSTOSCOPY, REMV CALCULUS, COMPLIC Right 09/26/2018 CYSTO, REMOVAL OF STENT, FOREIGN BODY, CALCULUS, COMPLICATED (WRVU 5.2) performed by Crow Galvin MD at [facility] OR ??? PRO CYSTOURETHROSCOPY, URETER CATHETER Right 07/10/2018 CYSTO, RETROGRADE, URETEROPYELOGRAPHY (WRVU 2.37) performed by Viky Sears MD at [facility] OR ??? PRO CYSTOURETHROSCOPY, URETER CATHETER Right 09/26/2018 CYSTO, RETROGRADE, URETEROPYELOGRAPHY, W/PCNL (WRVU 2.37) performed by Crow Galvin Jr., MD at [facility] OR ??? PRO EXPLORATORY OF ABDOMEN N/A 01/05/2019 @EXPLORATORY LAPAROTOMY, WITH/WITHOUT BIOPSY(S) (WRVU 12.54) performed by Ace Henry MD at [facility] OR ??? PRO EXPLORATORY OF ABDOMEN N/A 01/07/2019 @EXPLORATORY LAPAROTOMY, WITH/WITHOUT BIOPSY(S) (WRVU 12.54) performed by Ace Henry MD at [facility] OR ??? PRO FREEING BOWEL ADHESION, ENTEROLYSIS N/A 01/05/2019 @LYSIS OF ADHESIONS, ABD. (WRVU 18.46) performed by Ace Henry MD at [facility] OR ? ? PRO PERCUTANEOUS NEPHROSTOLITHOTOMY/PYELOSTOLITHOTOMY > 2 CM Right 09/26/2018 NEPHROLITHOTOMY, (PCNL) PERCUTANEOUS, OVER 2CM (WRVU 23.5) performed by Crow Galvin Jr., MD at [facility] OR ? ? PRO PERCUTANEOUS NEPHROSTOLITHOTOMY/PYELOSTOLITHOTOMY > 2 CM Left 11/07/2018 NEPHROLITHOTOMY, (PCNL) PERCUTANEOUS, OVER 2CM (WRVU 23.5) performed by Crow Galvin Jr., MD at [facility] OR ? ? PRO [facility] NEPHROSTOMY CATH PRQ NEW ACCESS RS&I Right 09/26/2018 NEPHROSTOMY CATHETER, PERC, INC DX NEPHROSTOGRAM/URETEROGRAM, IMG GUIDANCE (WRVU 4.25) performed byCrow Galvin Jr., MD at [facility] OR ? ? PRO PLNV NEPHROSTOMY CATH PRQ NEW ACCESS RS&I Left 11/07/2018 NEPHROSTOMY CATHETER, PERC, INC DX NEPHROSTOGRAM/URETEROGRAM, IMG GUIDANCE (WRVU 4.25) performed byCrow Galvin Jr., MD at [facility] MAIN OR ??? PRO RENAL ENDOSCOPY, TREATMENT Left 11/07/2018 RENAL ENDOSCOPY W\FULG, W\WO\BX, VIA NEPHROSTOMY (WRVU 6.61) performed by Crow Galvin Jr., MD [facility] MAIN OR ??? PRO RESECT SMALL INTEST, SINGL RESEC/ANAS N/A 01/07/2019 @BOWEL RESECTION, SMALL INTESTINE SINGLE ANASTOMOSIS (WRVU 20.82) performed by Ace Henry MD at [facility] MAIN OR Current Outpatient Medications on File Prior to Visit Medication Sig Dispense Refill ??? amoxicillin-clavulanate (AUGMENTIN) 875-125 mg Tablet Take 1 tablet by mouth 2 times daily for 14 days. 28 tablet 0 ??? amitriptyline (ELAVIL) 25 mg Tablet Take 25 mg by mouth nightly. ??? CANNABIDIOL, CBD, EXTRACT ORAL Take by mouth as needed. ??? ibuprofen (ADVIL;MOTRIN) 200 mg Tablet Take [...] ONE TABLET BY MOUTH TWICE A DAY1 ??? ACYCLOVIR ORAL Take by mouth as needed. ??? nitroGLYcerin (NITROSTAT) 0.4 mg Tablet, Sublingual Place 0.4 mg under the tongue every 5 minutes as needed for Chest pain. No current facility-administered medications on file prior to visit. Allergies Allergen Reactions ??? Anafranil [Clomipramine] give [...] Causes depression ??? Sulfa (Sulfonamide Antibiotics) Hives Most Recent Vitals: 02/28/19 0959 BP: 134/68 Pulse: 66 Resp: 16 Temp: 36.8 ??C (98.3 ??F) SpO2: 100% Physical Exam: Gen: NAD, pleasant and interactive HEENT: no scleral icterus, moist mucous membranes Resp: normal work of breathing Abd: soft, well healed incision with area of firmness in the middle and slightly off to the left of the umbilicus, BIANCA drain with scant serous output, prior BIANCA site with small scar, healing well Ext: no cyanosis or edema Neuro: alert and oriented, moving all extremities spontaneously Recent Labs 02/28/19 0853 02/21/19 0605 02/19/19 2355 WBC 8.3 6.8 10.3* HGB 10.8* 9.2* 10.1* HCT 34.1* 29.0* 32.2* PLATELET 266 177 245 Body Fluid Culture, Aerobic [[id number]] (Abnormal) Collected: 02/20/19 1533 Lab Status: Final result Specimen: Fluid Updated: 02/24/19 1032 Body Fluid Culture --Abnormal Rare Enterococcus faecalis Note: This is a corrected report Previously reported as: Rare Staphylococcus aureus Assessment/Plan: Blossom Samayoa is a 58 y.o. female with history of sarcoidosis, NIDDM, COPD, and CAD s/p exploratory laparotomy and small bowel resection on 01/07/19 presenting with recurrent abdominal wall abscesss/p IR drain placement on 02/20/19 with cultures growing enterococcus. Overall, she appears well. Willcontinue current management with IR drainage and Augmentin course for now. Discussed with Dr. aBrth and will have microbiology resend antibiotic sensitivity panel. Given ongoing diarrhea in the setting of recent hospitalizations and antibiotic therapy, despite a normal WBC, will send C. Difficileculture. - Continue IR drainage, flushing drain every 12 hours with 3-5 mL of sterile saline - Continue Augmentin - Follow up microbiology antibiotic sensitivities - C. Difficile screen - Follow up in 1 week with sinogram - Will arrange follow up with endocrinology or Dr. Mcmahon for further evaluation of hypercalcemia Patient seen and plan discussed with Dr. Henry. Jaxson Ramos MD Patient seen and examined by me. I agree with above note as written. Ace Henry MD #[id number] documented in this encounter Plan of Treatment Upcoming Encounters Date Type Specialty Care Team Description 03/15/2022 Office Visit Neurology Ryann Barfield, [facility] [address] [place] [address] 03/23/2022 Appointment Radiology Hailey Mcclendon MD [facility] [place] [address] 03/23/2022 Laboratory Appointment Lab 03/23/2022 Office Visit Gastroenterology Hailey Mcclendon MD [facility] [place] [address] 05/23/2022 Procedure visit Maxillofacial Surgery Corby Montes MD [facility] [place] [address] documented as of this encounter Visit Diagnoses Diagnosis Diarrhea, unspecified type documented in this encounter Care Teams Furniture Finisher Helper Relationship Specialty Start Date End Date Albert Zuleta MD PCP - General Family Medicine 01/17/17 10/26/21 [address] [place] [address] documented as of this encounter
--- OUTSIDE RECORDS SUMMARY | 2022-02-08 01:53 | XMS_ITS | Encounter Summary ---
:1960 Author Organization [place] [address] Care Team Providers Name Role Phone Albert Zuleta MD Primary Care Provider Encounter Details Date Type Department Care Team Description 02/01/2019 Telephone General Surgery at [facility] Ida Moore MD [facility] [place] [address] GENERAL SURGERY [phone] [place], [place] [address] (Wo rk) Social History Tobacco [...] encounter Miscellaneous Notes Telephone Encounter - Ida Moore MD - 02/01/2019 11:46 AM EDT General Surgery Telephone Note I called the patient at 11:46 AM. Blossom Samayoa is a 58 y.o. female who is s/p small bowel resection with Dr. Henry. They are calling in regards to drainage around BIANCA site. She states over the last few days her surgical drain site has been appearing more erythematous and having cloudy drainage from around the site. She states the drain was removed yesterday as the output was below 30cc/day. Since pulling the drain the redness has increased, is tender to the touch with cloudy foul smelling drainage. I advised the patient that she should have the site looked at urgent care/emergency room . Blossom Samayoa agrees with this plan. This note will be routed to the provider mentioned above. Ida Moore MD documented in this encounter Plan of Treatment Upcoming Encounters Date Type Specialty Care Team Description 03/15/2022 Office Visit Neurology Ryann Barfield APRN [facility] [address] [place] [address] 03/23/2022 Appointment Radiology Hailey Mcclendon MD [facility] [place] [address] 03/23/2022 Laboratory Appointment Lab 03/23/2022 Office Visit Gastroenterology Hailey Mcclendon MD [facility] [place] [address] 05/23/2022 Procedure visit Maxillofacial Surgery Corby Montes MD [facility] [address] [place] [place] [address] documented as of this encounter Visit Diagnoses Not on filedocumented in this encounter Care Teams Clinical Veterinarian Relationship Specialty Start Date End Date Albert Zuleta MD PCP - General Family Medicine 01/17/17 10/26/21 [place] [address] documented as of this encounter
--- OUTSIDE RECORDS SUMMARY | 2022-02-08 01:53 | XMS_ITS | Encounter Summary ---
:1960 Author Organization [facility] [place] [address] Care Team Providers Name Role Phone Albert Zuleta MD Primary Care Provider Encounter Details Date Type Department Care Team Description 02/07/2019 Ancillary Procedure [place] [address] Social History Tobacco Use Types Packs/Day [...] [facility] [address] [place] [address] 03/23/2022 Appointment Radiology Hailey Mcclendon MD [facility] [address] [place] [place] [address] 03/23/2022 Laboratory Appointment Lab 03/23/2022 Office Visit Gastroenterology Hailey Mcclendon MD [facility] [place] [address] 05/23/2022 Procedure visit Maxillofacial Surgery Corby Montes MD [facility] [place] [address] documented as of this encounter Procedures Procedure Name Priority Date/Time Associated Diagnosis Comme nts FILM LIBRARY Routine 02/07/2019 12:00 AM Results for this STORAGE ONLY CT EDT procedure ar e in ABDOMEN AND PELVIS the resul ts section. documented in this encounter Results Film Library- Storage Only CT Abdomen & Pelvis (02/07/2019 12:00 AM EDT) Specimen (Source) Anatomical Location Collection Method / Collectio n Time Received Time / Laterality Volume Narrative CRIS - 02/20/2019 10:43 PM EDT This exam is auto-finalizing. It's purpo se is for storage only. Ace Henry MD IMG FILM LIBRARY ORDERABLES Performing Organization Address City/State/ZIP Code Phon e Number [place], [place] documented in this encounter Visit Diagnoses Not on filedocumented in this encounter Care Teams Onion Topper Relationship Specialty Start Date End Date Albert Zuleta MD PCP - General Family Medicine 01/17/17 10/26/[address] [place] [id number] documented as of this encounter
--- OUTSIDE RECORDS SUMMARY | 2022-02-08 01:53 | XMS_ITS | Encounter Summary ---
:1960 Author Organization [facility] [place] [address] Care Team Providers Name Role Phone Albert Zuleta MD Primary Care Provider Encounter Details Date Type Department Care Team Description 02/03/2019 Ancillary Procedure Radiology Library at Ace Henry MD [facility] [place] [address] [place] [address] [phone] (Wo rk) Social History Tobacco Use Types [...] Neurology Ryann Barfield, [facility] NEUROLOGY [place], [place] [address] 03/23/2022 Appointment Radiology Hailey Mcclendon MD [facility] [place] [address] 03/23/2022 Laboratory Appointment Lab 03/23/2022 Office Visit Gastroenterology Hailey Mcclendon MD [facility] [place] [address] 05/23/2022 Procedure visit Maxillofacial Surgery Corby Montes MD [facility] [place] [address] documented as of this encounter Procedures Procedure Name Priority Date/Time Associated Diagnosis Comme nts FILM LIBRARY Routine 02/03/2019 12:05 AM Results for this STORAGE ONLY CT EDT procedure ar e in ABDOMEN AND PELVIS the resul ts section. documented in this encounter Results Film Library- Storage Only CT Abdomen & Pelvis (02/03/2019 12:05 AM EDT) Specimen (Source) Anatomical Location Collection Method / Collectio n Time Received Time / Laterality Volume Narrative RAD - 02/24/2019 12:49 PM EDT This exam is auto-finalizing. It's purpo se is for storage only. Ace Henry MD IMJean Pierre FILM LIBRARY ORDERABLES Performing Organization Address City/State/ZIP Code Phon e Number [facility] [place] [place] documented in this encounter Visit Diagnoses Not on filedocumented in this encounter Care Teams Wardrobe Attendant Relationship Specialty Start Date End Date Albert Zuleta MD PCP - General Family Medicine 01/17/17 10/26/21 [place] [phone] documented as of this encounter
--- OUTSIDE RECORDS SUMMARY | 2022-02-08 01:53 | XMS_ITS | Encounter Summary ---
:1960 Author Organization [facility] [place] [address] Care Team Providers Name Role Phone Albert Zuleta MD Primary Care Provider Encounter Details Date Type Department Care Team Description 02/03/2019 Ancillary Procedure Radiology Library at Ace Henry MD [facility] [place] [address] [place] [address] [phone] (Wo rk) Social History Tobacco Use Types [...] 03/15/2022 Office Visit Neurology Ryann Barfield, [facility] [place], [place] [address] 03/23/2022 Appointment Radiology Hailey Mcclendon MD [facility] [place] [address] 03/23/2022 Laboratory Appointment Lab 03/23/2022 Office Visit Gastroenterology Hailey Mcclendon MD [facility] [place] [address] 05/23/2022 Procedure visit Maxillofacial Surgery Corby Montes MD [facility] [place] [address] documented as of this encounter Procedures Procedure Name Priority Date/Time Associated Comments Diagnosis FILM LIBRARY STORAGE Routine 02/03/2019 12:10 AM Results for this ONLY ULTRASOUND EDT procedure ar e in STUDY the results section. documented in this encounter Results Film Library- Storage Only Ultrasound Study (02/03/2019 12:10 AM EDT) Specimen (Source) Anatomical Location Collection Method / Collectio n Time Received Time / Laterality Volume Narrative RAD - 02/24/2019 12:51 PM EDT This exam is auto-finalizing. It's purpo se is for storage only. Ace Henry MD IMG FILM LIBRARY ORDERABLES Performing Organization Address City/State/ZIP Code Phon e Number [place], [place] documented in this encounter Visit Diagnoses Not on filedocumented in this encounter Care Teams It Infrastructure Manager Relationship Specialty Start Date End Date Albert Zuleta MD PCP - General Family Medicine 01/17/17 10/26/21 [address] [place] [address] documented as of this encounter
--- OUTSIDE RECORDS SUMMARY | 2022-02-08 01:53 | XMS_ITS | Encounter Summary ---
:1960 Author Organization [facility] [place] [address] Care Team Providers Name Role Phone Albert Zuleta MD Primary Care Provider Reason for Visit Auth/Cert Specialty Diagnoses / Procedures Referred By Contact Refer red To Contact Diagnoses Shock Other cardiomyopathy Referral ID Status Reason Start Date Expiration Date Visits Requ ested Visits Authorized [id number] 1 1 Encounter Details Date Type Department Care Team Description 01/07/2019 Anesthesia Event Main Operating Room Juancarlos Mccauley MD [facility] [place] [address] [facility] Archana Knight MD [facility] [place] [address] [place] [address] Anesthesia Record Procedure Summary Procedure Name Responsible Anesthesia Start Anesthesia Stop Time Anesthesiologist Time @EXPLORATORY Juancarlos Child MD 01/07/19 1521 01/07/19 18 29 LAPAROTOMY, WITH/WITHOUT BIOPSY(S) (WRVU 12.54) (N/A Abdomen) Events Date Time Event Comment 01/07/2019 1424 1521 Start 1522 AN Verify 1523 Transport 1539 An Start Data 1544 An Induction 1554 Anesthesia Ready 1602 Procedure Start 1653 Break/Relief In Viky Rubio er, MANAGER SITE 1720 Break/Relief Out 1741 Quick Note ETT deep suction ed for small amount tenacious green sputum 182 Transport 182 Recovery or ICU Handoff Patient care was transferred to the destination unit staff after review of the patient's medica l history, current anesthetic/surgi beverley status and plan, according to the Provider Handoff Checklist. 1828 Stop 1835 an stop data Name Total Midazolam 2 mg fentaNYL 100 mcg Rocuronium 100 mg PHENYLephrine 240 mcg dexmedetomidine (PRECEDEX) 4 mcg/mL (standard Adult & Pedi greater than 301.96 mcg 20kg) infusion (premix) propofol (DIPRIVAN) infusion 390.53 mg fentaNYL 50 mcg/mL syringe 108.33 mcg Sodium Chloride 0.9% 0 mL Agents Name O2 Air N2O Sevoflurane (et) Blood No blood administrations on file. Lines, Drains, and Airways Type Details Placement Removal Incision flank; LDA not present 11/07/18 1427 by 03/07/19 0000 by upon assessment; Avani Aly RN 03/07/19 Wound flank; LDA not present 11/08/18 1352 by 03/07/19 0000 by upon assessment; Avani Aly RN 03/07/19 Incision 07/10/18; other (see 07/10/18 0000 by 03/07/19 0 000 by comments) (Rt Kassy Guevara, Avani Lakhani , RN ureteral/cysto procedure); LDA not present upon assessment; 03/07/19 Incision 09/26/18; 1517; (back); 09/26/18 1517 by 9 0000 by LDA not present upon Alon Mathias RN Ayotte, Anne L farm machine operator; 03/07/19 Peripheral IV Line - 01/04/19; (TEARER); median 01/04/19 0000 by 1656 by Double Lumen cubital vein Iman Galicia Dole, Sarah K RN (antecubital fossa), RN right, basilic vein (medial side of arm), right; [id number] catheter system; 20 gauge; 01/10/19; 1656 ETT ETT Type: Cuffed; ETT 01/04/19 2200 by 01/08/19 1226 by Size: 7.5 mm; ETT Rah Cruz Rubendall, Sean N, Placement Verified By: MACHINE FUR CLEANER MACHINE FUR CLEANER Auscultation, Capnometry, Visual; Secured at Teeth: 23 cm Urethral Catheter 01/04/19; 2234; 01/04/19 2235 by 01/09/19 1730 by Physician order; Close Ryann Garrett, Ted Martinez, RN urine output monitoring: critically ill patient, Physician order; indwelling catheter with core temperature probe; 14; inserted at this facility; 1; 10; 10; none; drainage bag to dependent drainage; 01/09/19; 1730 (per day shift RN) Incision 01/05/19; 0205; 01/05/19 0205 by 03/07/19 0000 b y abdomen; 03/07/19 [place] RN Ayotte, An ne L, RN NG/OG Tube 01/05/19; 0400; 01/05/19 0400 by 01/08/19 1200 b y orogastric; [place] [facility] Kevin Hastings, mouth; gastric BRYAN Estrada RN decompression; Taped; 01/08/19; 1200 NPWT 01/05/19; 0931; 01/05/19 0931 by 01/08/19 0932 b y abdomen; 01/08/19; 0932 [place] RN Ains worth-Wright, Samantha J, RN PIV 01/06/19; 1342; 01/06/19 1342 by 01/10/19 1815 b y cephalic vein (lateral Xin Rangel RN Pea rse, Shauna J, side of arm), right; 20 RN gauge; cephalic vein (lateral side of arm), left; leaking at insertion, and entire right arm is swollen. doppler studies being done. PIV's removed in right; catheter/device intact, site symptomatic, site care per policy/procedure, removed per policy/procedure; 01/10/19; 1815 PIV 01/07/19; 0843; 01/07/19 0843 by 01/09/19 0600 b y cephalic vein (lateral Javier Kelly David C RN side of arm), left; 22 Awilda Estrada RN gauge; BRYAN Green; lumen/catheter not patent, removed per policy/procedure, site care per policy/procedure, catheter/device intact (leaking); 01/09/19; 0600 Lumbar/CSF Drain 01/07/19; 1723; 01/07/19 1723 by 03/07/19 0000 by abdomen; LDA not Elizabeth Álvarez RN Ayotte, A nne L, RN present upon assessment; 03/07/19 documented in this encounter Social History Tobacco [...] as of this encounter OR Notes Anesthesia Preprocedure Evaluation - Archana Knight MD - 01/07/2019 2:11 PM EDT Pre-Anesthesia Evaluation for: Blossom Samayoa a 58 y.o. female. Procedure(s): @EXPLORATORY LAPAROTOMY, WITH/WITHOUT [facility]OP[facility]) [facility] Patient Active Problem List Diagnosis ??? Shock ??? Renal calculus, left [...] failure 'don't know if it's failure ??? 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 Mental health problem ??? Obstructive sleep apnea diag 2007 ??? Osteoma of ear canal ??? Vertigo balance prob,last fall early Jun. Past Surgical History: Procedure Laterality Date ??? PRG ECHOENCEPHALOGRAPH REAL TIME Left 11/07/2018 ULTRASOUND USE (WRVU 0.63) performed by Crow Galvin Jr., MD at [facility] OR ??? PRG FLUOROSCOPY EXAM UP TO 1 HR PHY OR OTH HLTH CARE PROV N/A 09/26/2018 FLUOROSCOPY (WRVU 0.17) performed by Crow Galvin Jr., MD at [facility] OR ??? PRG FLUOROSCOPY EXAM UP TO 1 HR PHY OR OTH HLTH CARE PROV N/A 11/07/2018 FLUOROSCOPY (WRVU 0.17) performed by Crow Galvin Jr., MD at [facility] OR ??? PRG US GUIDE INTRAOP Right 09/26/2018 ULTRASONIC GUIDANCE, INTRAOP (WRVU 1.2) performed by Crow Galvin Jr., MD at [facility] OR ? ? PRO CYSTO W URETEROSCOPY &/OR PYELOSCOPY, DX Right 09/26/2018 CYSTOURETEROSCOPY, DIAGNOSTIC (WRVU 5.75) performed by Crow Galvin Jr., MD at [facility] OR ? ? PRO CYSTO W URETEROSCOPY &/OR PYELOSCOPY, DX Left 11/07/2018 CYSTOURETEROSCOPY, DIAGNOSTIC (WRVU 5.75) performed by Crow Galvin Jr., MD at [facility] OR ??? PRO CYSTOSCOPY, INSERT URETERAL STENT Right 07/10/2018 CYSTO, STENT PLACEMENT (WRVU 2.82) performed by Viky Sears MD at [facility] OR ??? PRO CYSTOSCOPY, REMV CALCULUS, COMPLIC Right 09/26/2018 CYSTO, REMOVAL OF STENT, FOREIGN BODY, CALCULUS, COMPLICATED (WRVU 5.2) performed by Crow Galvin MD at [facility] OR ??? PRO CYSTOURETHROSCOPY, URETER CATHETER Right 07/10/2018 CYSTO, RETROGRADE, URETEROPYELOGRAPHY (WRVU 2.37) performed by Viky Sears MD at [facility] OR ??? PRO CYSTOURETHROSCOPY, URETER CATHETER Right 09/26/2018 CYSTO, RETROGRADE, URETEROPYELOGRAPHY, W/PCNL (WRVU 2.37) performed by Crow Galvin Jr., MD at [facility] OR ??? PRO EXPLORATORY OF ABDOMEN N/A 01/05/2019 @EXPLORATORY LAPAROTOMY, WITH/WITHOUT BIOPSY(S) (WRVU 12.54) performed by Ace Henry MD at [facility] OR ??? PRO FREEING BOWEL ADHESION, ENTEROLYSIS N/A 01/05/2019 @LYSIS OF ADHESIONS, ABD. (WRVU 18.46) performed by Ace Henry MD at [facility] OR ? ? PRO PERCUTANEOUS NEPHROSTOLITHOTOMY/PYELOSTOLITHOTOMY > 2 CM Right 09/26/2018 NEPHROLITHOTOMY, (PCNL) PERCUTANEOUS, OVER 2CM (WRVU 23.5) performed by Crow Galvin Jr., MD at [facility] OR ? ? PRO PERCUTANEOUS NEPHROSTOLITHOTOMY/PYELOSTOLITHOTOMY > 2 CM Left 11/07/2018 NEPHROLITHOTOMY, (PCNL) PERCUTANEOUS, OVER 2CM (WRVU 23.5) performed by Crow Galvin Jr., MD at [facility] OR ? ? PRO [facility] NEPHROSTOMY CATH PRQ NEW ACCESS RS&I Right 09/26/2018 NEPHROSTOMY CATHETER, PERC, INC DX NEPHROSTOGRAM/URETEROGRAM, IMG GUIDANCE (WRVU 4.25) performed byCrow Galvin Jr., MD at [facility] MAIN OR ? ? PRO PLMT NEPHROSTOMY CATH PRQ NEW ACCESS RS&I Left 11/07/2018 NEPHROSTOMY CATHETER, PERC, INC DX NEPHROSTOGRAM/URETEROGRAM, IMG GUIDANCE (VU 4.25) performed byCrow Galvin Jr., MD at [facility] MAIN OR ??? PRO RENAL ENDOSCOPY, TREATMENT Left 11/07/2018 RENAL ENDOSCOPY W\FULG, W\WO\BX, VIA NEPHROSTOMY (WRVU 6.61) performed by Crow Galvin Jr., MD [facility] MAIN OR Social History Tobacco Use ??? Smoking status: Former Smoker Packs/day: 1.00 Years: 30.00 Pack years: 30.00 Types: Cigarettes Last attempt to quit: 07/23/2016 Years since quittin.4 ??? Smokeless tobacco: Never Used Substance Use Topics ??? Alcohol use: No Frequency: Never Comment: 3 X a year Social History Substance and Sexual Activity Drug Use Yes ??? Types: Marijuana, Pain Pills Comment: rarely used, once every few months Allergies Allergen Reactions ??? Anafranil [Clomipramine] give [...] home medications have been reviewed. Physical Exam: Most Recent Vitals: 01/07/19 1102 BP: Pulse: Resp: 17 Temp: SpO2: 98% Body mass index is 47.85 kg/m??. Height: 170 cm (5' 6.93) Weight: (!) 138.3 kg (304 lb 14.3 oz) Airway Assessment: Mallampati: (Unable to Assess) Cardiovascular Assessment: Pulmonary Assessment: Dental Assessment: Misc Assessment: IV access: Peripheral line Anesthesia Plan: ASA 3 general, with a(n) intravenous induction Ms. Samayoa is a 58 y.o. 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 EF found to be 15% on admission, now 30% with diffuse wall motion abnormalities on repeat echo 01/05. Plan to return to OR for VAC change vs closure. CT chest notable for SKYLA opacities concerning for possible aspiration pneumonitis. Lactate now 2. Laboratory values reviewed, type and screen current. Pt is no longer requiring vasoactive support, and remains on Precedex, fentanyl gtt (50 mcg/min) andpropofol 30 mg/kg/min for sedation. Pt on SIMV 480/16/5, FiO2 30%, SpO2 99%. Plan for GETA, peripheral PIV access, possible invasive BP monitoring. Risks were discussed at length with pt's sister, Mona, and all questions and concerns were addressed. Serial consent for indicated procedures was obtained, and the appropriate paperwork was placed in the patient's chart. Region - Other Informed Consent: Anesthetic plan and risks discussed with healthcare power of furnace operator oil or gas. Use of blood products discussed with healthcare power of furnace operator oil or gas who consented to blood products. PAT Clinic Note documented in this encounter Plan of Treatment Upcoming Encounters Date Type Specialty Care Team Description 03/15/2022 Office Visit Neurology Ryann Barfield APRN [facility] [address] [place], [place] [address] 03/23/2022 Appointment Radiology Hailey Mcclendon MD [facility] [place] [address] 03/23/2022 Laboratory Appointment Lab 03/23/2022 Office Visit Gastroenterology Hailey Mcclendon MD [facility] [address] [place] [address] 05/23/2022 Procedure visit Maxillofacial Surgery Corby Montes MD [facility] [address] [place], [place] [address] documented as of this encounter Visit Diagnoses Not on filedocumented in this encounter Administered Medications Inactive Administered Medications - up to 3 most recent administrations Medication Order MAR Action Action Date Dose Rate Site dexmedetomidine (PRECEDEX) New Bag 01/08/2019 8:27 0.8 mcg/kg/hr 2 7.7 mL/hr 4 mcg/mL (standard Adult & AM EDT Pedi greater than 20kg) infusion (premix) 0-1.7 mcg/kg/hr ? 138.3 kg (0-58.7775 mL/hr, rounded to 0-58.8 mL/hr), Intravenous, CONTINUOUS, Starting on Sun01/06/19 at 1115, Until Sun01/08/19 at 1329, Titrate to sedation level of RASS Goal (-)1 to 0 . Start at 0.4 mcg/kg/hr, adjust by 0.4 mcg/kg/hr every 15 minutes. Once stable, reassess patient every 30 minutes. Rate not to exceed 1.7 mcg/kg/hr. Change rate only after assessing and documenting RASS. Reassess sedation scores within 30 minutes after every rate change. If under sedated, increase rate by 0.4 mcg/kg/hr. If over sedated, hold sedative until target RASS (-)1 to 0 achieved and then restart at 50% of previous rate. Call ice house supervisor if goal not achieved at maximum rate. If SAT is ordered and if patient meets criteria for Spontaneous Awakening Trial, titrate per protocol. New Bag 01/08/2019 6:26 AM EDT 1 mcg/kg/hr 34.6 mL/hr New Bag 01/08/2019 3:29 AM EDT 1 mcg/kg/hr 34.6 mL/hr fentaNYL 50 mcg/mL multi-dose injection Given 01/07/2019 4:55 PM EDT 50 mcg PRN, Starting on Sun01/07/19 at 1648, Until Sun01/07/19 at 1835, Anesthesia Intra-op, Routine Given 01/07/2019 4:48 PM EDT 50 mcg fentaNYL 50 mcg/mL Rate/Dose Verify 01/08/2019 6:00 PM 25 mcg/hr 0.5 mL/hr syringe EDT 0-200 mcg/hr (0-4 mL/hr), Intravenous, CONTINUOUS, Starting on 01/05/19 at 0100, Until Arin 01/09/19 at 1141, Pain Scale Goal Less than or equal to 3 or to patient verbalized goal. Initial Infusion rate: 50 mcg/hour; Adjust hourly rate by 50% AND bolus 50% of new hourly rate every 15 minutes to achieve goal. Rate not to exceed 200 mcg/hr. Pain assessment every 15 minutes initially and reassess pain 15 minutes after each bolus given. Pain assessment MUST be documented prior to rate change. Rate/Dose Verify 01/08/2019 4:00 PM EDT 25 mcg/hr 0.5 mL/hr Rate/Dose Verify 01/08/2019 2:00 PM EDT 25 mcg/hr 0.5 mL/hr midazolam (PF) (VERSED) multi-dose injec tion Given 01/07/2019 3:23 PM EDT 2 mg PRN, Starting on 01/07/19 at 1523, Until 01/07/19 at 1835, Anesthesia Intra-op, Routine PHENYLephrine in NS (PF) (JOCELYN-SYNEPHRINE) 0.8 Given 5:53 PM EDT 80 mcg mg/10 mL (80 mcg/mL) multi-dose injection Syrg PRN, Starting on 01/07/19 at 1712, Until 01/07/19 at 1835, Anesthesia Intra-op, Routine Given 01/07/2019 5:34 PM EDT 80 mcg Given 01/07/2019 5:12 PM EDT 80 mcg propofol (DIPRIVAN) infusion New Bag 01/08/2019 8:26 AM EDT 10 mcg/kg/min 8.1 mL/hr 0-50 mcg/kg/min ? 135.6 kg (0-40.68 mL/hr, rounded to 0-40.7 mL/hr), Intravenous, CONTINUOUS, Starting on 01/04/19 at 2341, Until 01/08/19 at 1329, Titrate to sedation level of RASS Goal (-)1 to 0 . Start at 20 mcg/kg/min, adjust rate by 10 mcg/kg/min every 3 minutes. Once stable, reassess patient every 30 minutes. Rate not to exceed 50 mcg/kg/minute. Change rate only after assessing and documenting RASS. Reassess sedation scores within 30 minutes after every rate change. If under sedated, increase rate by 10 mcg/kg/min. If over sedated, hold sedative until target RASS (-)1 to 0 achieved and then restart at 50% of previous rate. Call ice house supervisor if goal not achieved at maximum rate. If SAT is ordered and if patient meets criteria for Spontaneous Awakening Trial, titrate per protocol., Routine Rate/Dose Change 01/08/2019 6:00 AM EDT 20 mcg/kg/min 16.3 mL/hr New Bag 01/08/2019 4:46 AM EDT 30 mcg/kg/min 24.4 mL/hr rocuronium (ZEMURON) multi-dose injectio n Given 01/07/2019 5:27 PM EDT 20 mg PRN, Starting on Sun01/07/19 at 1552, Until Tu01/07/19 at 1835, Anesthesia Intra-op, Routine Given 01/07/2019 4:18 PM EDT 30 mg Given 01/07/2019 3:52 PM EDT 50 mg sodium chloride 0.9% infusion New Bag 01/07/2019 3:21 PM EDT CONTINUOUS PRN, Starting on Sun01/07/19 at 1521, Until 01/07/19 at 1835, Anesthesia Intra-op documented in this encounter Care Teams Mini Shifter Relationship Specialty Start Date End Date Albert Zuleta MD PCP - General Family Medicine 01/17/17 10/26/21 [address] [place] [address] documented as of this encounter
--- OUTSIDE RECORDS SUMMARY | 2022-02-08 01:53 | XMS_ITS | Encounter Summary ---
:1960 Author Organization [place] [address] Care Team Providers Name Role Phone Albert Zuleta MD Primary Care Provider Encounter Details Date Type Department Care Team Description 02/03/2019 Ancillary Procedure [place] [address] Social History Tobacco Use Types Packs/Day [...] Office Visit Neurology Ryann Barfield, [facility] [address] [place] [address] 03/23/2022 Appointment Radiology Hailey Mcclendon MD [facility] [address] [place] [address] 03/23/2022 Laboratory Appointment Lab 03/23/2022 Office Visit Gastroenterology Haiely Mcclendon MD [facility] [place] [address] 05/23/2022 Procedure visit Maxillofacial Surgery Corby Montes MD [facility] [place] [address] documented as of this encounter Procedures Procedure Name Priority Date/Time Associated Diagnosis Comme nts FILM LIBRARY Routine 02/03/2019 12:00 AM Results for this STORAGE ONLY CT EDT procedure ar e in ABDOMEN AND PELVIS the resul ts section. documented in this encounter Results Film Library- Storage Only CT Abdomen & Pelvis (02/03/2019 12:00 AM EDT) Specimen (Source) Anatomical Location Collection Method / Collectio n Time Received Time / Laterality Volume Narrative CRIS - 02/20/2019 10:40 PM EDT This exam is auto-finalizing. It's purpo se is for storage only. Ace Henry MD IMG FILM LIBRARY ORDERABLES Performing Organization Address City/State/ZIP Code Phon e Number [place], [place] documented in this encounter Visit Diagnoses Not on filedocumented in this encounter Care Teams Child Care Attendant School Relationship Specialty Start Date End Date Albert Zuleta MD PCP - General Family Medicine 01/17/17 10/26/[address] [id number] documented as of this encounter
--- OUTSIDE RECORDS SUMMARY | 2022-02-08 01:54 | XMS_ITS | Encounter Summary ---
:1960 Author Organization [facility] [place] [address] Care Team Providers Name Role Phone Albert Zuleta MD Primary Care Provider Reason for Visit Reason Comments Hospital Transfer Abdominal Pain Incarcerated Hernia Auth/Cert Specialty Diagnoses / Procedures Referred By Contact Refer red To Contact Diagnoses Shock Other cardiomyopathy Referral ID Status Reason Start Date Expiration Date Visits Requ ested Visits Authorized [id number] 1 1 Encounter Details Date Type Department Care Team Description 01/07/2019 Surgery Main Operating Room Ace Henry MD @[facility] DR WITH/WITHOUT BIOPSY(S) [facility] GENERAL SURGE RY (WRVU 12.54) [place] [address] [place] [address] [phone] Social History Tobacco Use Types Packs/Day Years [...] Sign Reading Time Taken Comments Blood Pressure 112/47 01/07/2019 2:00 PM EDT Pulse 60 01/07/2019 2:00 PM EDT Temperature 38.4 ??C (101.1 ??F) 01/07/2019 2:00 PM EDT Respiratory Rate 20 01/07/2019 2:55 PM EDT Oxygen Saturation 98% 01/07/2019 2:55 PM EDT Inhaled Oxygen Concentration - - Weight 138.3 kg (304 lb 14.3 oz) 01/05/2019 12:20 AM EDT Height 170 cm (5' 6.93) 01/05/2019 12:20 AM EDT Body Mass Index 47.09 01/05/2019 12:20 AM EDT documented in this encounter Discharge Summaries Albert James MD - 01/15/2019 12:11 PM EDT Images from the original note were not included. Inpatient - Discharge Summary Patient Name: Blossom Pacheco Patient Age: 58 y.o. Birthdate: 1960 Admit date: 01/04/2019 Discharge date and time: 01/15/2019 Attending Physician: Kelsey Eaton MD Code Status: Full Code Follow-up Recommendations for Providers: - Please fu bmp for hypokelmia. Pateint was sent with 40 meq of potassium daily -Please consider working up suspected primary hyperparathyroidism when patients clinically stable (obtaining PTH, 1-25 oh, 25 oh and calcium levels) - Please remove BIANCA drain when < 30 cc for two consecutive days. For reference her output was 55 cc on 01/14/19 - Please remove tammy on 01/16/2019 Discharge Diagnoses (Hospital Problems) and Secondary Diagnoses (Chronic Problems): Active Hospital Problems Diagnosis ??? Shock Resolved Hospital Problems No resolved problems to display. Procedures: Operations: Procedure(s) with comments: @EXPLORATORY LAPAROTOMY, WITH/WITHOUT BIOPSY(S) (VU 12.54) - ABDOMINAL WALL CLOSURE @BOWEL RESECTION, SMALL INTESTINE SINGLE ANASTOMOSIS (VU 20.82) History of Presentation (per 01/04/2019 Admission H&P): History obtained via chart review: ?? Patient initially presented to the [facility] ED with acute onset abdominal pain and nausea/vomiting, as well as worsening dyspnea. She was tachycardic and hypotensive with labwork notable for a metabolic acidosis, a leukocytosis of 25, 00 and a lactate of 15. CT scan at [facility] showed partial small bowel obstruction secondary to incarcerated anterior wall abdominal hernia. She received ceftriaxone and flagyl as well as 1.5 L IVF. She was transferred to the [facility] ED for further management. ?? In the ED she initially was on BiPAP but was ultimately intubated. Bedside echo showed reduced EF ~ 10-15%. She also was reportedly intermittently in and out of afib/flutter with rates in the 160's while in the ED. She was given 1g IV Meropenem, amiodarone 150 mg X2, insulin (10 units X2) and continued on norepinephrine. She was seen by Cardiology who felt that her underlying abdominal pathology was likely driving her picture with a subsequent stress and/or tachymyopathy; a PA cath placement was recommended ? Patient initially appeared to be weaning off of pressors with an improved lactic acid but then beganrequired increasing amounts of levophed (up to 45mcg) and epinephrine to maintain MAPs of 60s. Surgery was re-engaged and agreed to take her back to to the OR for emergent ex-lap. A PA cath was placed in the MICU. ?? Per Dr Casillas's note Notably, she was seen by cardiology in August of 2018 prior to surgery with Dr. Henry for surgicalrepair of her abdominal wall hernia. She was referred for TTE which showed normal EF and nuclear stress which revealed moderate ischemia of anterior wall prompting cath. Cath revealed nonobstructive coronary disease. She had a prior history of a cardiomyopathy in 2010 of unclear etiology (with LVEF of45%). Per documentation, the ventral hernia was conservatively managed and she was just recently seen on 12/23/[address] Henry who wanted ongoing conservative management. Hospital Course: Blossom Pacheco was admitted to the ICU Service on 01/04/2019. The following acute and chronic medical issues were identified during this phase of their hospitalization, and managed as summarized below by problem: #Mixed distributive/cardiogenic shock #Hypoxic respiratory failure # Small Bowel Obstruction with ischemic gut Patient arrived to [facility] ED with severe sepsis with stress induced myopathy with EF of 15% and a pressor requirment. She initially was thought to have ischemic bowel due to known incarcerated hernia andwas brought into the OR for emergent ex-lap. During the procedure, no bowel abnormalities were notedand patient's wound was left open with wound vac attached. She remained intubated for procedure She was given meropenem due to history of penicillin allergy and was admitted to critical care medicine. Right heart cath was placed revealing a cardiac index of 2.2, CVP 12 and SVR 1200 consistent with a mixed shock picture. No source of infection was identified although CT chest did show possible RUL aspiration pneumonitis. It was thought her initial presentation could be due to an embolic source that was transient from a new presentation of afib in the ED although this was never confirmed. CT angiogram did show possible ischemic small bowel and patient was brought back to the OR for second ex lap andclosure. During this procedure, surgery performed a partial small bowel resection and anastomosis. She was weaned off sedation and extubated on 01/08, post op day 1. Pain control was transitioned from fentanyl to dilaudid and subsequently to oxycodone. NGT was removed on 01/10, and the patient was started on a diet, as she was having good bowel movements. Number of bowel movements increased and they were loose, and c diff testing was performed and was negative. The flexiseal was removed on 01/13. Stools were firming up on day of discharge. Patient required zheng cather postoperatively for urinary retention but this was removed on 01/13 without issue. #Hypernatremia Partway through her stay, patient developed hypernatremia to 154. She was started on D5 1/2 NS, and her Na steadily trended down. After about 2 days, her Na was steady within the normal range, and the D5 was removed. It was thought that her hypernatremia was due to dehydration 2/2 GI losses related toher surgery. #Atrial fibrillation Patient presented in a fib with RVR and hemodynamic instability. She was given two doses of amiodarone in the ED with good response. She was started on levophed in the ICU, but was weaned off within 24hours. She was maintained on telemetry and did not require further treatment, and was hemodynamically stable from that point on. Important Studies and Lab Data: DISCHARGE BASIC LABS Recent Labs 01/15/19 0504 01/14/19 0547 01/13/19 0646 WBC 11.3* 10.8* 11.3* HGB 10.0* 9.5* 9.3* HCT 32.3* 30.4* 29.2* PLATELET 261 274 275 Recent Labs 01/15/19 0504 01/14/19 0547 01/13/19 0826 01/12/19 1131 01/11/19 0520 NA 143 141 143 < > 144 < > 153* K 3.0* 2.8* 3.2* < > 3.6 < > 3.2* CL 112* 111* 113* < > 115* < > 119* CO2 20* 19* 19* < > 18* < > Not Perf BUN 3* 5* 8 < > 10 < > 24* CREATININE 0.51* 0.52* 0.51* < > 0.53* < > 0.62* MAGNESIUM 0.69 0.71 0.64* -- -- -- 0.78 PHOS -- -- 2.1* -- 1.9* -- 2.2* < > = values in this interval not displayed. Recent Labs 01/12/19 1131 BILITOT 0.3 BILIDIR 0.1 AST 14 ALT 10 ALKPHOS 79 No results for input(s): INR, PTT in the last 168 hours. Microbiology: Microbiology Results (Last 30 days) Procedure Component Value Units Date/Time C. Difficile Screen [[id number]] Collected: 01/11/19 1333 Lab Status: Final result Specimen: Stool Updated: 01/11/19 1609 C Diff Screen Negative Comment: C. diff Negative Clostridium difficile is not present in the specimen. If patient is having diarrhea suspected to be from an infectious cause, then Contact Precautions are still required. Lower Respiratory Culture Sputum Induced [[id number]] (Abnormal) Collected: 01/11/19 0448 Lab Status: Preliminary result Specimen: Sputum Induced Updated: 01/11/19 1027 Gram Stain -- Few Neutrophils seen Many squamous epithelial cells seen Few mixed bacterial morphotypes suggestive of normal upper respiratory rasta Specimen unsatisfactory for Culture based on Gram Stain findings indicating significant oral contamination, suggest repeat specimen of improved quality. Results called to and read back by Carmen Reddy RN Blood culture [[id number]] Collected: 01/08/19 1630 Lab Status: Final result Specimen: Blood Updated: 01/13/19 2301 Blood Culture No growth at 5 days. Urine culture [[id number]] Collected: 01/05/19 1035 Lab Status: Final result Specimen: Indwelling Catheter Urine Updated: 01/06/19 0739 Urine Culture No growth (Less than 1,000 cfu/ml). Blood culture [[id number]] Collected: 01/05/19 0130 Lab Status: Final result Specimen: Blood Updated: 01/10/19 0701 Blood Culture No growth at 5 days. Pertinent radiology/diagnostic studies: CT chest 01/07: IMPRESSION 1. Trace right and small left pleural effusions. Subtotal atelectasis of the lower lobes. 2. Additional perihilar and dependent left upper lobe consolidative opacities for aspiration pneumonitis. CT angio abdomen and pelvis 01/07: Large ventral abdominal wall defect with open abdominal wound with evidence of ischemia within the herniated loops of small bowel within and abutting abdominal wall. US Retroperitoneal 01/07: Normal renal ultrasound. Specifically, in no evidence of stones or obstruction on either side. Discharge Conditions/Prognosis: Upon discharge the pt is hemodynamically stable, fully ambulatory without requiring supplemental oxygen, afebrile and pain controlled with stable oral regimen. Discharge to: To acute Rehab Discharge Medications: Your Medications New Medications Dose Details lactobacillus with pectin 75 million cell -100 mg Cap Take 1 capsule by mouth daily for 10 days. Start taking on: 01/16/2019 1 capsule Quantity: 10 capsule Refills: 0 potassium chloride 20 mEq Tbtq Commonly known as: K-DUR/KLOR-CON Take 2 tablets by mouth daily for 30 days. 40 mEq Quantity: 60 tablet Refills: 0 Continued medications, unchanged Dose [...] Causes depression ??? Sulfa (Sulfonamide Antibiotics) Hives Instructions Given to Patient at Discharge: Patient Instructions Instruction after leaving the hospital Why you were hospitalized: You had a bowel obstruction requiring removal of your intestines, You recovered well. Call your doctor or seek medical attention if you develop the following: Abdominal Pain, Constipation, Fevers, chills, fatigue, rash, shortness of breath, chest pain, abdominal pain or any other symptom that you find concerning Activity level: As tolerated Diet: Resume heart healthy diet Shower/Bath: No restrictions, although please try to avoid getting the area around the drain wet while in the shower. Wound Care: Avoid Moisture: Follow a bowel and bladder schedule for incontinent patients and document. Cleanse skin gently after each incontinence episode with Shield Barrier wipes. Apply Z-Guard Skin Protectant Paste to perineal skin bid and prn. Consider use of a fecal incontinence containment device. Assess skin for fungal infections, notify provider. Use disposable air pads (white chux) to maintain dry skin and prevent fungal infections. Avoid adult diapers except when patient is out of bed to ambulate or in a chair. Home Oxygen therapy: N/A Specific instructions related to your condition: See below for specific wound care instructions Follow-Up Appointments To-Do List To-Do List Future Appointments Provider Department Dept Phone 02/14/2019 9:00 AM Ace Henry MD [facility] Surgery at [place] Arrive at: [facility] [phone] 03/28/2019 11:00 AM Ace Henry MD [facility] at [place] Arrive at: [facility] [phone] Your Inpatient Doctor(s) at [facility]: Attending- Kelsey Eaton MD Resident- TRACE James MD Physician Practice Administrator- Jesus Benson DO [facility] Department of General Surgery Discharge Instructions CALL YOUR PHYSICIAN'S OFFICE IF: ??? You have a fever greater than 101 degrees Farenheit (38.3C) within one month of your surgery. ? ? You have diarrhea or vomiting for >24 hours, stop having bowel movements and/or passing flatus, have pain with urination. ??? You have worsening pain, not controlled with your pain medication. ??? You develop redness, swelling, or new drainage from your wound. Diet: [x] You have been cleared to resume your regular diet - We recommend eating a regular healthy diet and ensure that you are receiving adequate intake of protein (i.e.; fresh fruits, vegetables and fiber-containing foods will assist in wound healing). Activity: - It is normal to feel tired after surgery/hospitalization. Be as active as tolerated as this will improve recovery and prevent blood clots. - You should avoid any heavy lifting for 4 weeks after surgery. A galloon of milk is a good estimate of the maximum you should be lifting while your wounds heal. -We recommend taking several slow, short walks each day for the first two weeks, and gradually increase your distance. We recommend at least 4 times a day. Wound/Incision Care: Closure: Your skin incision(s) is closed with: [x] Tammy - Tammy are typically removed 7-14 days after surgery. You should have a follow-up visit with the clinic nurses to have your sutures removed. Your sutures will be removed at your acute rehab facility on post-operative day 10. Infection: Observe for changes and alert the clinic if new/worsening redness or drainage. Things to avoid: Do not use creams, oils, or ointments on the wound. Keep wound open to air if it is not draining. Lines/Drains/Tubes: [x] You are being discharged with a Gabo-Sarkar (BIANCA) drain. Please see the multidisciplinary instructions below for details. Your BIANCA drain will be removed whenthe output is 30 mL per day or less for two or more consecutive days, and it can be removed either in follow-up at clinic in 1 month or at your acute rehab facility. Who to call? If you have concerns or questions: - During the day, it is best to call the General Surgery Clinic to speak with the Surgery nurses. The number is [phone]. Please call this number when you BIANCA drain output has reached 30 mL or less for two or more consecutive days, and the nurses will assist you in scheduling an appointment in clinic to have your drain removed. - During the night or weekends call the [facility] tread tuber machine operator at [phone] and ask to speak to the surgery resident clinical education consultant for general surgery. Please note: Your surgeon may not be Cardiology Coordinator, especially during the night or on weekends, so be ready to describe yourself and your surgery when you call. Follow up appointments: Future Appointments Date Time Provider Department Center 02/14/2019 9:00 AM Ace Henry MD [facility] 03/28/2019 11:00 AM Ace Henry MD [facility] [x] Follow-up appointment with Dr. Henry in General Surgery has already been scheduled on February 14, 2019 at 9 AM. Please call the clinic at [phone] to confirm or reschedule. If you need a prior authorization, please call the General Surgery Clinic nurses [phone] for prior authorizations assistance. General Instructions Gabo Sarkar Drain Nursing Discharge Instructions: Inspect the skin around the insertion site daily for signs of infection such as: ??? Redness or swelling ??? Pus or drainage ??? Fever over 100 F (38 C) or chills ??? Increased pain or discomfort at the insertion site Washing instructions: ??? Gently wash the skin with tap water and pat dry ??? Rinse and air dry the skin before wearing clothes Tube Maintenance: ??? Make sure the tube is properly secured to prevent accidental removal. ??? Strip tubing and empty your drain in the morning and evening ??? Record the drainage amount in the chart provided by your nurse. Contact your physician if: ??? There is a significant change in drainage amount or color. ??? If the tube becomes dislodged. ??? If you notice signs of infection (see above). DRAIN CARE INSTRUCTIONS Drains help to keep [...] for 2-3 days in a row. You may then be scheduled for whatis called a Sinogram to check and see if the fluid collection has gotten smaller but this varies. How do I care for the drains [...] dressing if applicable. * See the following pages for instructions on how to do this. What problems may I have with my [...] and dry. How to Empty Your Drain Note: Wash your hands thoroughly before emptying your drain(s). Unpin the drain from your clothing. 1. Turn the white stopcock so it is not parallel (in line) with the tubing. 2. Unscrew the tubing with the bulb attached from stopcock. Make sure you keep everything clean. 3. Attach the syringe with sterile saline to the stopcock. 4. Inject saline per MD order, usually 3-5 cc's. 5. Re-attach the tubing with the bulb to the stopcock. 6. Invert the bulb and pull open the plug. 7. Have the plastic measuring cup from the hospital ready to collect and measure the drainage. Please measure the output at the same time every 24 hours and record the amount. 1. 8. Turn the drain upside down and [...] touch the measuring cup or anyother surface. 2. Use one hand to squeeze all [...] drain. Flush the drain with 3-5 cc 2 times a day with the syringes supplied to you. Do Not flush the drain. Gabo-Sarkar Drainage Record NAME: Date of Surgery: Date: Time: If more than one drain, which one: Drainage Amount (per drain) Total Amount (per drain; in 24 hours) Future Appointments and Orders Future Appointments and Orders Future Appointments Provider Department Dept Phone 02/14/2019 9:00 AM Ace Henry MD [facility] [place] Arrive at: [facility] [phone] 03/28/2019 11:00 AM Ace Henry MD [facility] [place] Arrive at: [facility] Provider Contact Information: MD [address] / [facility] [id number] Discharge References/Attachments: Discharge References/Attachments None documented in this encounter Discharge Instructions Discharge InstructionsNAlbert glover MD - 01/15/2019 12:08 PM EDT Images from the original note were not included. Gabo Sarkar Drain Nursing Discharge Instructions: Inspect the skin around the insertion site daily for signs of infection such as: ??? Redness or swelling ??? Pus or drainage ??? Fever over 100 F (38 C) or chills ??? Increased pain or discomfort at the insertion site Washing instructions: ??? Gently wash the skin with tap water and pat dry ??? Rinse and air dry the skin before wearing clothes Tube Maintenance: ??? Make sure the tube is properly secured to prevent accidental removal. ??? Strip tubing and empty your drain in the morning and evening ??? Record the drainage amount in the chart provided by your nurse. Contact your physician if: ??? There is a significant change in drainage amount or color. ??? If the tube becomes dislodged. ??? If you notice signs of infection (see above). DRAIN CARE INSTRUCTIONS Drains help to keep [...] for 2-3 days in a row. You may then be scheduled for whatis called a Sinogram to check and see if the fluid collection has gotten smaller but this varies. How do I care for the drains [...] dressing if applicable. * See the following pages for instructions on how to do this. What problems may I have with my [...] and dry. How to Empty Your Drain Note: Wash your hands thoroughly before emptying your drain(s). Unpin the drain from your clothing. 1. Turn the white stopcock so it is not parallel (in line) with the tubing. 2. Unscrew the tubing with the bulb attached from stopcock. Make sure you keep everything clean. 3. Attach the syringe with sterile saline to the stopcock. 4. Inject saline per MD order, usually 3-5 cc's. 5. Re-attach the tubing with the bulb to the stopcock. 6. Invert the bulb and pull open the plug. 7. Have the plastic measuring cup from the hospital ready to collect and measure the drainage. Please measure the output at the same time every 24 hours and record the amount. 1. 8. Turn the drain upside down and [...] touch the measuring cup or anyother surface. 2. Use one hand to squeeze all [...] drain. Flush the drain with 3-5 cc 2 times a day with the syringes supplied to you. Do Not flush the drain. Gabo-Sarkar Drainage Record NAME: Date of Surgery: Date: Time: If more than one drain, which one: Drainage Amount (per drain) Total Amount (per drain; in 24 hours) Patient InstructionsNAlbert glover MD - 01/15/2019 9:25 AM EDT Instruction after leaving the hospital Why you were hospitalized: You had a bowel obstruction requiring removal of your intestines, You recovered well. Call your doctor or seek medical attention if you develop the following: Abdominal Pain, Constipation, Fevers, chills, fatigue, rash, shortness of breath, chest pain, abdominal pain or any other symptom that you find concerning Activity level: As tolerated Diet: Resume heart healthy diet Shower/Bath: No restrictions, although please try to avoid getting the area around the drain wet while in the shower. Wound Care: Avoid Moisture: Follow a bowel and bladder schedule for incontinent patients and document. Cleanse skin gently after each incontinence episode with Shield Barrier wipes. Apply Z-Guard Skin Protectant Paste to perineal skin bid and prn. Consider use of a fecal incontinence containment device. Assess skin for fungal infections, notify provider. Use disposable air pads (white chux) to maintain dry skin and prevent fungal infections. Avoid adult diapers except when patient is out of bed to ambulate or in a chair. Home Oxygen therapy: N/A Specific instructions related to your condition: See below for specific wound care instructions Follow-Up Appointments To-Do List To-Do List Future Appointments Provider Department Dept Phone 02/14/2019 9:00 AM Ace Henry MD [facility] [place] Arrive at: [facility] [phone] 03/28/2019 11:00 AM Ace Henry MD [facility] Surgery at [place] Arrive at: [facility] [phone] Your Inpatient Doctor(s) at [facility]: Attending- Kelsey Eaton MD Resident- TRACE James MD Physician Practice Administrator- Jesus Benson DO [facility] Department of General Surgery Discharge Instructions CALL YOUR PHYSICIAN'S OFFICE IF: ??? You have a fever greater than 101 degrees Farenheit (38.3C) within one month of your surgery. ? ? You have diarrhea or vomiting for >24 hours, stop having bowel movements and/or passing flatus, have pain with urination. ??? You have worsening pain, not controlled with your pain medication. ??? You develop redness, swelling, or new drainage from your wound. Diet: [x] You have been cleared to resume your regular diet - We recommend eating a regular healthy diet and ensure that you are receiving adequate intake of protein (i.e.; fresh fruits, vegetables and fiber-containing foods will assist in wound healing). Activity: - It is normal to feel tired after surgery/hospitalization. Be as active as tolerated as this will improve recovery and prevent blood clots. - You should avoid any heavy lifting for 4 weeks after surgery. A galloon of milk is a good estimate of the maximum you should be lifting while your wounds heal. -We recommend taking several slow, short walks each day for the first two weeks, and gradually increase your distance. We recommend at least 4 times a day. Wound/Incision Care: Closure: Your skin incision(s) is closed with: [x] [place] - Tammy are typically removed 7-14 days after surgery. You should have a follow-up visit with the clinic nurses to have your sutures removed. Your sutures will be removed at your acute rehab facility on post-operative day 10. Infection: Observe for changes and alert the clinic if new/worsening redness or drainage. Things to avoid: Do not use creams, oils, or ointments on the wound. Keep wound open to air if it is not draining. Lines/Drains/Tubes: [x] You are being discharged with a Gabo-Sarkar (BIANCA) drain. Please see the multidisciplinary instructions below for details. Your BIANCA drain will be removed whenthe output is 30 mL per day or less for two or more consecutive days, and it can be removed either in follow-up at clinic in 1 month or at your acute rehab facility. Who to call? If you have concerns or questions: - During the day, it is best to call the [facility] to speak with the Surgery nurses. The number is [phone]. Please call this number when you BIANCA drain output has reached 30 mL or less for two or more consecutive days, and the nurses will assist you in scheduling an appointment in clinic to have your drain removed. - During the night or weekends call the [facility] tread tuber machine operator at [phone] and ask to speak to the surgery resident clinical education consultant for general surgery. Please note: Your surgeon may not be Cardiology Coordinator, especially during the night or on weekends, so be ready to describe yourself and your surgery when you call. Follow up appointments: Future Appointments Date Time Provider Department Center 02/14/2019 9:00 AM Ace Henry MD [facility] 03/28/2019 11:00 AM Ace Henry MD [facility] [x] Follow-up appointment with Dr. Henry in General Surgery has already been scheduled on February 14, 2019 at 9 AM. Please call the clinic at [phone] to confirm or reschedule. If you need a prior authorization, please call the General Surgery Clinic nurses [phone] for prior authorizations assistance. documented in this encounter Medications at Time of Discharge Medication Sig Dispensed Refills Start Date End Date tiotropium (Spiriva) Inhale 1 capsule into 0 01/20 18 mcg Capsule, the lungs. w/Inhalation Device nitroGLYcerin [...] 03/09/2018 (PRINIVIL;ZESTRIL) 5 MOUTH DAILY mg Tablet lactobacillus with Take 1 capsule by 10 capsule 0 01/16/2019 01/26/2019 pectin 75 million cell mouth daily for 10 -100 mg Capsule days. potassium chloride Take 2 tablets by 60 tablet 0 01/15/2019 02/14/2019 (K-DUR/KLOR-CON) 20 mouth daily for 30 mEq Tab Sust.Rel. days. Particle/Crystal potassium chloride Take 2 tablets by 60 tablet 0 01/15/2019 02/14/2019 (K-DUR/KLOR-CON) 20 mouth daily for 30 mEq Tab Sust.Rel. days. Particle/Crystal amitriptyline (ELAVIL) Take 25 mg by mouth [...] mouth daily. (CULTURELLE) 10 billion cell Capsule HYDROcodone-acetaminop Take 1 tablet by mouth 0 12/28/2020 hen (NORCO) 5-325 mg 2 times daily. Mostly Tablet takes at night for sleep acetaminophen Take 2 tablets by 30 tablet 1 07/24/201805/24 (TYLENOL) 325 mg mouth every 6 hours. Tablet levalbuterol (XOPENEX INHALE TWO PUFFS BY 3 05/0712/28/2020 HFA) 45 mcg/actuation MOUTH EVERY 4 TO 6 HFA Aerosol Inhaler HOURS NEEDED INCRUSE ELLIPTA 62.5 INHALE ONE PUFF BY 5 018 12/28/2020 mcg/actuation Disk MOUTH EVERY DAY with Device glipiZIDE-metFORMIN TAKE TWO TABLETS BY 3 2 018 06/20/2019 (METAGLIP) 5-500 mg MOUTH TWICE A DAY Tablet carvedilol (COREG) Take 12.5 mg by mouth 3 201711/20/2019 3.125 mg Tablet 2 times daily. magnesium oxide TAKE ONE TABLET BY 1 03/06/2018 0 03/28/2019 (MAG-OX) 400 mg (241.3 MOUTH TWICE A DAY mg magnesium) Tablet documented as of this encounter Progress Notes Padmini Andrews RN - 01/15/2019 1:32 PM EDT Pt alert, oriented but delirious at times. VSS. Denied pain, reported slight abdominal discomfort. Incontinence care provided, BIANCA drain emptied (35ml) and dressing changed. Showered. Dicharged today to [facility] via ambulance. Sister at the bedside. Belongings gathered per sister. Handoff was given to receiving facility. Kelsey Eaton MD - 01/15/2019 12:05 PM EDT Hospital Medicine - Attending Day of Discharge Documentation Discharge diagnosis Active Hospital Problems Diagnosis ??? Shock Resolved Hospital Problems No resolved problems to display. Secondary Issues Active Non-Hospital Problems Diagnosis ??? Renal calculus, left ??? HTN (hypertension) [...] with BMI of 50.0-59.9, adult ??? Sarcoidosis I have personally seen and examined the patient and they are ready for discharge. I spent <30 minutes (Day of Discharge Code 71892) involved in the final examination of the patient, discussion of the hospital stay, instructions for continuing care to all relevant caregivers, and preparation of discharge records, prescriptions and referral forms. Plans ? Discharge to rehab ? Follow-up scheduled with provider at rehab and surgery ? Please see the Discharge Summary for complete details of any medication changes and additional plans. Celestina Moseley - 01/15/2019 11:27 AM EDT Office of Care Management/Loan Originator Patient Name: Blossom Pacheco : 1960 Patient has been offered an Acute Rehab bed at [facility]. [facility] arranged for a 1300 transport. Ambulance will need: Medicare ambulance form completed and signed (MD or Vegetable Farming Supervisor RN/HAND ZIPPER TRIMMER) Copy of patient demographics [place] or [place] Out of Hospital DNR/DNI order, if active No MD to MD report necessary Please call Nursing Report to [phone], ask for spice grinder. Info to accompany patient: Narcotic Prescriptions Copies of Medication Administration Records and IV sheets for past 10 days. Plan: Loan Originator will be available to the patient and Vegetable Farming Supervisor-RN and/or Assembly Leader for further assistance. Patient will be discharged to: [place] [id number] Celestina Moseley Loan Originator Paulino Sauer MD - 01/15/2019 7:11 AM EDT INPATIENT DAILY PROGRESS NOTE Patient Name: Blossom Pacheco Patient Age: 58 y.o. Birthdate: 1960 Admit date: 01/04/2019 Attending Physician: Kelsey Eaton MD ID: Blossom Pacheco is a 58 y.o. female, now POD #8, who originally presented from an OSH with incarcerated ventral hernia, hypotension, dyspnea, nausea/vomiting, and abdominal pain, concerning for sepsis vs shock. Surgery was consulted upon arrival to [facility], and she was taken emergently to OR on 01/05/19 for ex-lap, which was negative. Patient returned to OR on 01/07/19, where she had ~80 cm of chronically dilated small bowel resected. Recent events/symptoms: No acute events overnight. Patient reports that her pain is well-controlled today, she did receive 5mg dose of Oxycodone overnight x1. She is tolerating an oral diet and having regular bowel movements,which she describes as diarrhea. She reports that she has been getting OOB to the commode and bedside chair, but no extended ambulation yet. O: Last value Range last 24hrs Temperature Temp: 36.7 ??C (98.1 ??F) Temp: [36.6 ??C (97.9 ??F)-36.9 ??C (98.4 ??F)] Heart Rate Heart Rate: 92 Heart Rate: [74-92] Blood Pressure BP: 128/85 BP: (123-152)/(56-85) Respiratory Rate Resp: 18 Resp: [16-18] SpO2 SpO2: 97 % SpO2: [96 %-98 %] Body mass index is 47.09 kg/m??. 01/14 0701 - 01/15 0700 In: 3585 [P.O.:3585] Out: 55 cc BIANCA Drain in R Lower Abdomen Dysphagia Soft Diet Intake/Output Summary (Last 24 hours) at 01/15/2019 0712 Last data filed at 01/15/2019 0116 Gross per 24 hour Intake 3585 ml Output 55 ml Net 3530 ml Physical Exam: General: NAD, A&Ox3, resting in bed, cooperative Abd: Soft, appropriately tender, obese. Incision c/d/i, mild erythema around wound margins. Tammy intact. Neuro: Grossly intact, moving all four extremities spontaneously. Lines/Drains: BIANCA drain in place lower right abdomen with serosanguineous output. Recent Labs 01/15/19 0504 01/14/19 0547 01/13/19 0646 01/12/19 1145 WBC 11.3* 10.8* 11.3* 10.4* HGB 10.0* 9.5* 9.3* 9.7* HCT 32.3* 30.4* 29.2* 31.2* PLATELET 261 274 275 241 Recent Labs 01/15/19 0504 01/14/19 0547 01/13/19 0826 01/12/19 1615 01/12/19 1131 NA 143 141 143 143 144 K 3.0* 2.8* 3.2* Not Perf 3.6 CL 112* 111* 113* 114* 115* CO2 20* 19* 19* 17* 18* BUN 3* 5* 8 9 10 CREATININE 0.51* 0.52* 0.51* 0.53* 0.53* GLUCOSE 175 180 228* 241* 212* CALCIUM 9.4 9.2 9.8 9.8 9.7 MAGNESIUM 0.69 0.71 0.64* -- -- PHOS -- -- 2.1* -- 1.9* ASSESSMENT: Blossom Pacheco is a 58 y.o. female 8 Days Post-Op s/p small bowel resection, now tolerating a diet with regular bowel movements and doing very well. PLAN BY SYSTEM -Maintain BIANCA drain until 30 cc output continuously for 48 hours -Tammy remain in place until POD10 -Continue regular diet -Encouraged to ambulate as much as can be tolerated, with a goal of 3 times today to get up from bed -Please page [phone] with any questions Paulino Sauer MD 01/15/2019 [facility] Surgery p.[phone] Morales Awad MSW - 01/14/2019 3:32 PM EDT Met with pt and sister, Mona. Discussed [place] Advance Directives. Pt reports having filled in prior version but never completing. Mona identified as proxy. Assisted pt with completion of [place] AD's-copy sent for scanning. Pt remains agreeable to possible Acute Rehab transition. Also noted w/w Medicaid Resource Specialisthere for Medicaid and also discussed potential for considering application for [place] Choices for Care/Commercial Lines Manager Care Medicaid. Pt noted remembering other potential asset and requested follow-up by RS to review. I have forwarded this request. Following for HAND ZIPPER TRIMMER and care management support through disposition. da Gutierrez RN - 01/14/2019 9:59 AM EDT Based on discussions with the multi-disciplinary healthcare team, the patient would benefit from acute rehab level of care at discharge. ?? I have met with the patient/employee's representative to discuss discharge planning needs. I have provided the [facility], Office of Care Management letter from the Grooving Machine Operator pertaining to rehab referrals. I have also provided a letter describing our affiliations within the [facility] and educated them about their right to choose where referrals are placed. ?? I reviewed the different levels of rehab including SNF, swing, acute and LTAC with the patient/employee's representative. ?? The patient/employee's representative has been provided a list of facilities within their preferred geographic area. ?? I have requested that the patient/employee's representative provide at least three choices for referral. ?? The patient/employee's representative have requested referrals to: ?? 1. [facility] ?? 2. [facility] ([facility]) ?? 3. [facility] ([facility]ally [facility]) ?? Expected date of discharge: 01/16/19 Note routed to Loan Originator who will communicate referrals to facilities and provide any required information. Ted Lang MD - 01/14/2019 8:09 AM EDT Surgery Inpatient Progress Note ID: Blossom Pacheco??is a 58 y.o.??female??with shock of unknown etiology. Underwent negative ex-lap on 01/05/19, left with open abdomen, now 7 Days Post-Op s/p closure with resection of ~80cm of chronically dilated small bowel on 01/07/19. 24hr events: - tolerating PO - afebrile Subjective: Denies abdominal pain n/v,cp,sob this am O: Last value Range last 24hrs Temperature Temp: 36.6 ??C (97.9 ??F) Temp: [36.6 ??C (97.9 ??F)-37.1 ??C (98.8 ??F)] Heart Rate Heart Rate: 77 Heart Rate: [74-87] Blood Pressure BP: 152/63 BP: (131-152)/(57-92) Respiratory Rate Resp: 16 Resp: [16-20] SpO2 SpO2: 97 % SpO2: [95 %-98 %] 01/13 0701 - 01/14 0700 In: 2315 [P.O.:1875] Out: 4015 [Urine:2800] BIANCA: 60 mL Physical Exam: General: NAD, resting comfortably, pleasant and interactive HEENT: PERRL, no scleral icterus CVS: Regular rate and rhythm Pulm: course sounds bilaterally Abd: soft, appropriately tender, incision c/d/i and well approximated with tammy in place, erythema improved, no drainage, BIANCA with serosanguinous output : no zheng Skin: warm, dry Ext: no cyanosis Neuro: non-focal, moving all four extremities spontaneously Labs: Recent Labs 01/14/19 0547 01/13/19 0646 01/12/19 1145 WBC 10.8* 11.3* 10.4* HGB 9.5* 9.3* 9.7* HCT 30.4* 29.2* 31.2* PLATELET 274 275 241 Recent Labs 01/14/19 0547 01/13/19 0826 01/12/19 1615 01/12/19 1131 01/11/19 1805 NA 141 143 143 144 146* K 2.8* 3.2* Not Perf 3.6 3.2* CL 111* 113* 114* 115* 116* CO2 19* 19* 17* 18* 19* BUN 5* 8 9 10 16 CREATININE 0.52* 0.51* 0.53* 0.53* 0.58* GLUCOSE 180 228* 241* 212* 169 CALCIUM 9.2 9.8 9.8 9.7 9.7 MAGNESIUM 0.71 0.64* -- -- -- PHOS -- 2.1* -- 1.9* -- Impression/Recommendations: Blossom Pacheco??is a 58 y.o.??female??with shock of unknown etiology, who underwent negative ex-lap on 01/05/19, left with open abdomen, now 7 Days Post-Op s/p resection of ~80cm of chronically dilated small bowel and primary closure on 01/07/19. Overall continues to progress from a surgical standpoint without fevers and leukocytosis is down-trending. She has had return of bowel function and is tolerating PO intake. - Regular diet - Tammy out at POD 10, BIANCA to stay in for now - Abdominal binder when OOB at all times to decrease hernia recurrence rate as fascia closed primarily without mesh. - Further care as per primary team - Will continue to follow. Please page [phone] during the day or [phone] in the evenings for questions. Ted Rajan MD Racheleyesenia Carlos Eduardo Sean - 01/14/2019 6:40 AM EDT Inpatient Medicine Progress Note Hospital Day 6 days Active Hospital Problems Diagnosis ??? Shock Resolved Hospital Problems No resolved problems to display. 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 24 Hour Events/Subjective: - Better mental status - Zheng removed yesterday, urinating well - Flexiseal removed yesterday, getting to the commode without issue - Feels a little wheezy, nebs are helpful ROS: Denies fevers/chills, chest pain, shortness of breath, diarrhea/vomiting/abdominal pain/constipation, muscle aches or weakness. Inpatient Medications: Scheduled Meds: ??? potassium chloride 40 mEq Oral Q4H ??? lisinopril 5 mg Oral Daily ??? gabapentin 100 mg Oral TID ??? insulin lispro 3-12 Units Subcutaneous TID AC ??? spironolactone 25 mg Oral Daily ??? carvedilol 3.125 mg Oral BID WC ??? traZODone 50 mg Oral Nightly ??? potassium, sodium phosphates 3 g Oral 4 Times Daily ??? amitriptyline 25 mg Oral Nightly ??? ceFEPime 2 g Intravenous Q8H ??? metroNIDAZOLE 500 mg Intravenous Q8H ??? melatonin 3 mg Oral Nightly ??? heparin (Porcine) 5,000 Units Subcutaneous Q8H BERT ??? acetaminophen 1,000 mg Oral Q8H BERT Or ??? acetaminophen 975 mg Rectal Q8H BERT Continuous Infusions: PRN Meds:.Glucose 40% oral gel OR dextrose OR glucagon (human recombinant), ipratropium-albuterol, haloperidol, oxyCODONE Vitals: Temp: [36.6 ??C (97.9 ??F)-37.1 ??C (98.8 ??F)] Heart Rate: [74-89] Resp: [16-20] BP: (131-154)/(57-92) SpO2: [95 %-98 %] Heart Rate from SpO2: [75 bpm-89 bpm] Ins/Outs: Intake/Output Summary (Last 24 hours) at 01/10/2019 0815 Last data filed at 01/10/2019 0631 Intake/Output Summary (Last 24 hours) at 01/14/2019 0802 Last data filed at 01/14/2019 0649 Gross per 24 hour Intake 2315 ml Output 3455 ml Net -1140 ml Physical Exam: Gen: Obese female resting in bed, in no acute distress. AOx3 HEENT: EOMI, sclera anicteric CVS: RRR with normal S1/S2, no appreciable m/r/g; peripheral pulses full and equal Pulm: CTA b/l, breathing non-labored with good air movement, no crackles/rhonchi or wheeze Abd: Obese abdomen, drain in place with serosanguinous fluid, bandaged with compression bands in place. Reports mild tenderness to gentle palpation, and tammy appear well without erythema. Ext: WWP, no edema, no clubbing, no cyanosis. No erythema or swelling of the RUE Skin: Intact with no rashes, petechiae, or ecchymoses Neuro: CN 2-12 grossly intact; no focal deficits grossly noted. Strength - 5/5 upper extremities. Sensation to light touch intact. Laboratory: Last 3 wbc, hgb, hct plt Recent Labs 01/14/19 0547 01/13/19 0646 01/12/19 1145 WBC 10.8* 11.3* 10.4* HGB 9.5* 9.3* 9.7* HCT 30.4* 29.2* 31.2* PLATELET 274 275 241 Last 3 Lytes Recent Labs 01/14/19 0547 01/13/19 0826 01/12/19 1615 NA 141 143 143 K 2.8* 3.2* Not Perf CL 111* 113* 114* CO2 19* 19* 17* BUN 5* 8 9 CREATININE 0.52* 0.51* 0.53* Last 3 LFTs Recent Labs 01/12/19 1131 01/04/19 2125 07/22/18 1803 AST 14 37* 31* ALT 10 30 20 ALKPHOS 79 129* 77 BILITOT 0.3 1.1 0.8 BILIDIR 0.1 0.3 0.2 Last Ca, Mg, Phos Recent Labs 01/14/19 0547 01/13/19 0826 CALCIUM 9.2 9.8 PHOS -- 2.1* Last 3 Coags No results for input(s): PT, INR, PTT in the last 168 hours. Last 3 ProBNP, Trop, CK No results for input(s): CK, TROPONINT, PROBNP in the last 168 hours. Last 3 HgbA1C Recent Labs 01/13/19 0646 07/10/18 0320 HA1C 7.9* 7.8* Microbiology: Lower respiratory culture 01/11 Few Neutrophils seen Many squamous epithelial cells seen Few mixed bacterial morphotypes suggestive of normal upper respiratory rasta Specimen unsatisfactory for Culture based on Gram Stain findings indicating significant oral contamination, suggest repeat specimen of improved quality. 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 Plan: #Small Bowel Obstruction #Small Bowel resection # Hypophosphatemia # Suspected ICU Delirium Makenna's confusion and agitation have continued to improve. She is alert and oriented, and expressingnone of the agitation that she showed previously. Removal of zheng and flexiseal should be helpful. We will stop antibiotics today, and appreciate any further surgical recommendations. Should be readyto go soon, likely to acute rehab, though unclear about plan for drain and staple removal at this time. - Dysphagia soft diet, can consider advancing pending REGISTERED DIETICIAN eval - Abdominal binder per surgery, does not have currently - Will d/c cefepime 2g Q8H - Will d/c metronidazole 500 mg Q8H - Speech consult, appreciate recs - Trazodone 50 mg QHS - Monitor for urinary retention, may require straight caths # Hypernatremia # DM II Patient stable on subq insulin. Will titrate lantus to goal BS of 140-180. Hypernatremia is resolved. - 12 units lantus daily - SSI- resistant # Urinary retention Zheng was removed 01/13. Will need to monitor for signs of retention, as patient described symptoms of overflow incontinence at home. - Zheng out 01/13 - Monitor for retention, may require straight cath # HTN #Atrial fibrillation - given amiodarone in the ED x2 - On tele currently - Continue home carvedilol - Restart home lisinopril - Continue home spironolactone - Has not had any further episodes #MOSES - On home CPAP - Consider NC at night for comfort if not able to use CPAP - Duo nebs prn #Pain control Pain has been well controlled with only occasional IV dilaudid. Will stop IV today and rely on oral pain meds. - Tylenol Q8H scheduled - oxycodone 5 mg for more mild pain - Continue bowel meds - Amitriptyline 25 mg QHS - Gabapentin 100 mg three times daily #Thrush- resolved # FEN/PPx - DVT ppx: Heparin and SCDs - Diet/Fluids: Carb counting Dispo: floor, pending Code Status: Full code Carlos Eduardo Tai M.D. PGY-1 Internal Medicine 01/14/2019 Red Team [id number] Associated attestation - Kelsey Eaton MD - 01/14/2019 5:22 PM EDT Attending Attestation Please see Dr. Tai's note for details of the patient history of presentation and data. I have discussed, reviewed and agree with the documented History, Physical findings, Assessment and Plan of care. 58 y/o with h/o bilateral PCNs for sepsis in past, h/o sarcoid (lung, skin - on prednisone), COPD, MOSES on CPAP, h/o ventral hernia admitted to ICU with shock and acute hypoxic respiratory failure - s/pbowel resection with closure and remains stable, afebrile. Mental status is clear now without delirium. Completing 7 days of antibiotics given shock (though bowel resected). Will benefit rehab - she prefers [facility] I have examined the patient myself and personally reviewed all studies. In addition, I certify that I am a [facility] credentialed attending provider with admitting privileges and that the patient meets or has met medical necessity to require an inpatient IPI level of care meeting a minimum of two midnights or is on the [facility] inpatient only procedure list (status C) due to: Shock requiring surgery Mateo Lyles RCP - 01/13/2019 11:05 PM EDT Pt compliant with home CPAP ?? Plan: Continue to offer assistance with home CPAP for MOSES Idris Thompson - 01/13/2019 5:17 PM EDT Referral received from Nora Arriaga for [place] Medicaid assistance on 01/06. Met with pt on 01/13 to introduce myself and purpose of [place] secondary coverage/assistance needed. [place] screening results found pt financially eligible for In/Out Program due to over [place]com[place]. [place] application (Form 202MED) completed on 01/13 Authorized Director Of Exhibit Development Form, aka Release of Information (Form 139REP) completed and designated toAuthor. Copy made of all application documents. Mailed all documents to [place] DCF/ESD Application and Document Processing Center on 01/14 for submissionand processing. Jessica Barnes RD - 01/13/2019 2:14 PM EDT Nutrition Progress Note Blossom Pacheco is a 58 y.o. female Reason for intervention: Follow up Nutrition Recommendations: Consider recall REGISTERED DIETICIAN, Regular diet with consistency per REGISTERED DIETICIAN Encourage bananas for stool thickening Patient Active Problem List Diagnosis Code ??? [...] Renal calculus, left N20.0 ??? Shock R57.9 Past Medical History: Diagnosis Date ??? Asthma ??? Bowel disease IBS ??? CHF (congestive heart failure) diag 2017 [facility] ??? Chronic lung disease sarcoidosis ??? Chronic pain mostly legs,back,neuropathy ??? CIS - Chest pain ??? COPD (chronic obstructive pulmonary disease) ??? CPAP (continuous positive airway pressure) dependence get the machine the of aug. ??? Delayed emergence from anesthesia 2018stent done, had to have revresal ??? Diabetes ??? Irregular heart beat LBBB diag 2009 weak left ventricle ??? Kidney failure 'don't know if it's failure ??? snf current use of opiate analgesic PCP ??? Mental health problem ??? Obstructive sleep apnea diag 2007 ??? Osteoma of ear canal ??? Vertigo balance prob,last fall early Jun. Active Orders Diet Dysphagia Soft Diet Frequency: Effective Now Number of Occurrences: Until Specified Admit Weight: 138.3 kg Estimated body mass index is 47.09 kg/m?? as calculated from the following: Height as of this encounter: 170 cm (5' 6.93). Weight as of this encounter: 136.1 kg (300 lb). [place] Body Weight (IBW): 61kg UBW: no changes reported Estimated needs: Calories: 1525kcal Protein: 90 grams Today's medications: reviewed, insulin, Neutra phos, spirolactone Lab Results Component Value Date NA 143 01/13/2019 K 3.2 (L) 01/13/2019 CL 113 (H) 01/13/2019 CO2 19 (L) 01/13/2019 BUN 8 01/13/2019 CREATININE 0.51 (L) 01/13/2019 GLUCOSE 228 (H) 01/13/2019 MAGNESIUM 0.64 (L) 01/13/2019 CALCIUM 9.8 01/13/2019 PHOS 2.1 (L) 01/13/2019 AST 14 01/12/2019 ALT 10 01/12/2019 ALKPHOS 79 01/12/2019 BILITOT 0.3 01/12/2019 BILIDIR 0.1 01/12/2019 TRIG 271 07/10/2018 Last Bowel Movement: 01/13/19 Assessment: patient is resting in bed, generally well nourished in appearance. She states she ate breakfast this morning with good appetite (eggs, coffee, banana) with good tolerance. Last seen by REGISTERED DIETICIAN on 01/09 when with NGT. Nutrition to continue to follow up while inpatient THANKS JACINTO Larson Beeper #: [id number] Jaxson Ramos MD - 01/13/2019 7:28 AM EDT Surgery Inpatient Progress Note ID: Blossom Pacheco??is a 58 y.o.??female??with shock of unknown etiology. Underwent negative ex-lap on 01/05/19, left with open abdomen, now 6 Days Post-Op s/p closure with resection of ~80cm of chronically dilated small bowel on 01/07/19. 24hr events: - 500 cc of liquid stool out overnight - BIANCA with 60 cc out - WBC yesterday down to 10.4, remains afebrile - Agitated overnight, given Haldol Subjective: Reports abdominal pain is minimal. Tolerating diet, but continues to have significant liquid stools.Denies nausea, vomiting, chest pain, and shortness of breath. O: Last value Range last 24hrs Temperature Temp: 36.8 ??C (98.2 ??F) Temp: [36.6 ??C (97.9 ??F)-37 ??C (98.6 ??F)] Heart Rate Heart Rate: 90 Heart Rate: [84-90] Blood Pressure BP: 142/58 BP: (142-170)/(58-91) Respiratory Rate Resp: 18 Resp: [16-18] SpO2 SpO2: 99 % SpO2: [97 %-99 %] 01/12 07 - 01/13 0700 In: 186 [P.O.:350; I.V.:845] Out: 2609 [Urine:2049] BIANCA: 60 mL Physical Exam: General: NAD, resting comfortably, pleasant and interactive HEENT: PERRL, no scleral icterus CVS: Regular rate and rhythm Pulm: course sounds bilaterally Abd: soft, appropriately tender, incision c/d/i and well approximated with tammy in place, erythema improved, no drainage, BIANCA with serosanguinous output : zheng in place with light yellow urine Skin: warm, dry Ext: no cyanosis Neuro: non-focal, moving all four extremities spontaneously Labs: Recent Labs 01/12/19 1145 01/11/19 0520 WBC 10.4* 11.6* HGB 9.7* 9.1* HCT 31.2* 29.8* PLATELET 241 246 Recent Labs 01/12/19 1615 01/12/19 1131 01/11/19 1805 01/11/19 1045 01/11/19 0520 01/10/19 2208 01/10/19 0810 NA 143 144 146* 147* 153* 152* < > -- K Not Perf 3.6 3.2* 2.9* 3.2* 3.4* < > -- CL 114* 115* 116* 116* 119* 119* < > -- CO2 17* 18* 19* 20* Not Perf 21* < > -- BUN 9 10 16 20* 24* 28* < > -- CREATININE 0.53* 0.53* 0.58* 0.60* 0.62* 0.65* < > -- GLUCOSE 241* 212* 169 182 137 223* < > -- CALCIUM 9.8 9.7 9.7 9.4 10.0 9.9 < > -- MAGNESIUM -- -- -- -- 0.78 0.80 -- -- PHOS -- 1.9* -- -- 2.2* 2.2* -- 1.0* < > = values in this interval not displayed. Impression/Recommendations: Blossom Pacheco??is a 58 y.o.??female??with shock of unknown etiology, who underwent negative ex-lap on 01/05/19, left with open abdomen, now 6 Days Post-Op s/p resection of ~80cm of chronically dilated small bowel and primary closure on 01/07/19. Overall, she is doing well, fevers have resolved and leukocytosis is down- trending. She has had return of bowel function with loose stools and is tolerating PO intake. - Regular diet - Abdominal binder when OOB at all times to decrease hernia recurrence rate as fascia closed primarily without mesh. - Encourage being out of bed to chair today and ambulation as tolerated - consider PT consult. - Further care as per primary team - Will continue to follow. Please page [phone] during the day or [phone] in the evenings for questions. Recommendations discussed with primary team. Jaxson Ramos MD Carlos Eduardo Tai - 01/13/2019 6:42 AM EDT Inpatient Medicine Progress Note Hospital Day 6 days Active Hospital Problems Diagnosis ??? Shock Resolved Hospital Problems No resolved problems to display. 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 24 Hour Events/Subjective: - IV placed overnight, restarted on abx - Got nebulizers for subjective wheezes - Feeling better this morning, just some abdominal tenderness - Stools are more formed, c diff came back negative ROS: Denies fevers/chills, chest pain, shortness of breath, diarrhea/vomiting/abdominal pain/constipation, muscle aches or weakness. Inpatient Medications: Scheduled Meds: ??? potassium chloride 40 mEq Oral Once ??? magesium sulfate in dextrose infusion 1 g Intravenous Q2H ??? lisinopril 5 mg Oral Daily ??? gabapentin 100 mg Oral TID ??? insulin lispro 3-12 Units Subcutaneous TID AC ??? spironolactone 25 mg Oral Daily ??? carvedilol 3.125 mg Oral BID WC ??? traZODone 50 mg Oral Nightly ??? potassium, sodium phosphates 3 g Oral 4 Times Daily ??? amitriptyline 25 mg Oral Nightly ??? ceFEPime 2 g Intravenous Q8H ??? metroNIDAZOLE 500 mg Intravenous Q8H ??? melatonin 3 mg Oral Nightly ??? heparin (Porcine) 5,000 Units Subcutaneous Q8H BERT ??? acetaminophen 1,000 mg Oral Q8H BERT Or ??? acetaminophen 975 mg Rectal Q8H BERT Continuous Infusions: PRN Meds:.Glucose 40% oral gel OR dextrose OR glucagon (human recombinant), haloperidol, oxyCODONE Vitals: Temp: [36.7 ??C (98.1 ??F)-37 ??C (98.6 ??F)] Heart Rate: [84-90] Resp: [18] BP: (142-170)/(58-91) SpO2: [96 %-99 %] Heart Rate from SpO2: [82 bpm-94 bpm] Ins/Outs: Intake/Output Summary (Last 24 hours) at 01/10/2019 0815 Last data filed at 01/10/2019 0631 Intake/Output Summary (Last 24 hours) at 01/13/2019 1019 Last data filed at 01/13/2019 0900 Gross per 24 hour Intake 1256 ml Output 2820 ml Net -1564 ml Physical Exam: Gen: Obese female resting in bed, in no acute distress. AOx3 HEENT: PERRLA, EOMI, sclera anicteric CVS: RRR with normal S1/S2, no appreciable m/r/g; peripheral pulses full and equal Pulm: CTA b/l, breathing non-labored with good air movement, no crackles/rhonchi or wheeze Abd: Obese abdomen, drain in place with serosanguinous fluid, bandaged with compression bands in place. Reports mild tenderness to gentle palpation, and tammy appear well without erythema. Ext: WWP, no edema, no clubbing, no cyanosis. No erythema or swelling of the RUE Skin: Intact with no rashes, petechiae, or ecchymoses Neuro: CN 2-12 grossly intact; no focal deficits grossly noted. Strength - 5/5 upper extremities. Sensation to light touch intact. Laboratory: Last 3 wbc, hgb, hct plt Recent Labs 01/13/19 0646 01/12/19 1145 01/11/19 0520 WBC 11.3* 10.4* 11.6* HGB 9.3* 9.7* 9.1* HCT 29.2* 31.2* 29.8* PLATELET 275 241 246 Last 3 Lytes Recent Labs 01/13/19 0826 01/12/19 1615 01/12/19 1131 NA 143 143 144 K 3.2* Not Perf 3.6 CL 113* 114* 115* CO2 19* 17* 18* BUN 8 9 10 CREATININE 0.51* 0.53* 0.53* Last 3 LFTs Recent Labs 01/12/19 1131 01/04/19 2125 07/22/18 1803 AST 14 37* 31* ALT 10 30 20 ALKPHOS 79 129* 77 BILITOT 0.3 1.1 0.8 BILIDIR 0.1 0.3 0.2 Last Ca, Mg, Phos Recent Labs 01/13/19 0826 CALCIUM 9.8 PHOS 2.1* Last 3 Coags No results for input(s): PT, INR, PTT in the last 168 hours. Last 3 ProBNP, Trop, CK No results for input(s): CK, TROPONINT, PROBNP in the last 168 hours. Last 3 HgbA1C Recent Labs 01/13/19 0646 07/10/18 0320 HA1C 7.9* 7.8* Microbiology: Lower respiratory culture 01/11 Few Neutrophils seen Many squamous epithelial cells seen Few mixed bacterial morphotypes suggestive of normal upper respiratory rasta Specimen unsatisfactory for Culture based on Gram Stain findings indicating significant oral contamination, suggest repeat specimen of improved quality. 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 Plan: #Small Bowel Obstruction #Small Bowel resection # Hypophosphatemia # Suspected ICU Delirium Makenna's confusion and agitation seems to have improved today. She is alert and oriented, and expressing none of the agitation that she showed yesterday. It seems most likely that she has ICU delirium, and we will work on reorientation and sleep today. Neuro exam does not suggest need for further neurological workup at this time. In the interest of reducing causes for delirium will attempt to remove flexiseal today, and if all goes well could consider removing zheng for voiding trial as well. We will touch base with surgery regarding their plans for antibiotics, as she has been on them for aweek now at this point. She is not showing signs of worsening infection at this time. - consider haldol for agitation - Dysphagia soft diet, can consider advancing - Abdominal binder per surgery - Replete low phos with Neutraphos 3 g TID - Continue cefepime 2g Q8H, switch to cipro during loss of IV - Continue metronidazole 500 mg Q8H, switch to oral during loss of IV - Speech consult, appreciate recs - Trazodone 50 mg QHS - Remove flexiseal today # Hypernatremia # DM II Patient stable on subq insulin, though sugars are higher than we would prefer. She is getting most of her insulin via basal at this time, so we will increase her SSI to achieve better balance between short and long acting control. - 25 units lantus now - SSI- resistant # Urinary retention Patient describes symptomatolgy or overflow incontinence at home (frequent small volume urination with urinary leakage with increased abdominal pressure). Were planning for voiding trial today but willprioritize flexiseal removal and remove zheng when able, possibly today if all goes well. - Will prioritize flexiseal removal - Voiding trial when able, possibly today if all goes well # HTN #Atrial fibrillation - given amiodarone in the ED x2 - On tele currently - Continue home carvedilol - Restart home lisinopril - Continue home spironolactone - Has not had any further episodes #MOSES - On home CPAP - Consider NC at night for comfort if not able to use CPAP - Duo nebs prn #Pain control Pain has been well controlled with only occasional IV dilaudid. Will stop IV today and rely on oral pain meds. - Tylenol Q8H scheduled - Will d/c hydromorphone 0.4 mg IV Q6H PRN - oxycodone 5 mg for more mild pain <7/10 - Continue bowel meds - Amitriptyline 25 mg QHS - Gabapentin 100 mg three times daily #Thrush- resolved # FEN/PPx - DVT ppx: Heparin and SCDs - Diet/Fluids: Carb counting Dispo: floor, pending Code Status: Full code Carlos Eduardo Tai M.D. PGY-1 Internal Medicine 01/13/2019 Red Team [id number] Associated attestation - Kelsey Eaton MD - 01/13/2019 5:28 PM EDT Attending Attestation Please see Dr. Tai's note for details of the patient history of presentation and data. I have discussed, reviewed and agree with the documented History, Physical findings, Assessment and Plan of care. 58 y/o with h/o bilateral PCNs for sepsis in past, h/o sarcoid (lung, skin - on prednisone), COPD, MOSES on CPAP, h/o ventral hernia admitted to ICU with shock and acute hypoxic respiratory failure - nows/p bowel resection with closure, hemodynamics stable and hypernatremia improved. WBC has improved, afebrile, Delirium improved today - Elavil held on admission and possible could contribute to agitation - resumed yesterday and restarting gabapentin at lower dose with plan to increase. Mobilize with PT. Clarify duration of abx with surgery - otherwise will complete 7 days tomorrow. I have examined the patient myself and personally reviewed all studies. In addition, I certify that I am a D-H credentialed attending provider with admitting privileges and that the patient meets or has met medical necessity to require an inpatient IPI level of care meeting a minimum of two midnights or is on the CMS inpatient only procedure list (status C) due to: Shock requiring surgery Mateo Lyles RCP - 01/13/2019 12:41 AM EDT Pt compliant with home CPAP for MOSES Plan: Continue to offer assistance with home CPAP Dakota Vines - 01/12/2019 7:10 PM EDT Film [employer] Encounter Note Patient Name: Blossom Pacheco : [id number] MR#: [id number] Admit Date: 01/04/2019 8:36 PM Hospital Day 8 days Narrative: Visited patient on rounds at nurse's request. Nurse said patient had been anxious and confused today, and longing to go home. Patient was lying on bed, awake and calm. Assessment: Ms. Pacheco declined visit, stating that she is not yazdanism. Intervention and Outcome: Offered non-yazdanism visit. Patient declined any intervention. Follow-up: Nurse may request future visit if patient becomes less agitated. Time in Direct Care: 5 min Kelsey Melton 01/12/2019 Albert James MD - 01/12/2019 7:54 AM EDT Inpatient Medicine Progress Note Hospital Day 6 days Active Hospital Problems Diagnosis ??? Shock Resolved Hospital Problems No resolved problems to display. 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 24 Hour Events/Subjective: -declined cpap last night, spent night mildly confused - This AM- confused, removed iv's, threatening to leave ama ROS: Denies fevers/chills, chest pain, shortness of breath, diarrhea/vomiting/abdominal pain/constipation, muscle aches or weakness. Inpatient Medications: Scheduled Meds: ??? nystatin 500,000 Units Oral TID ??? famotidine 20 mg Oral BID ??? melatonin 3 mg Oral Nightly ??? heparin (Porcine) 5,000 Units Subcutaneous Q8H BERT ??? acetaminophen 1,000 mg Oral Q8H BERT Or ??? acetaminophen 1,000 mg Oral Q8H BERT Or ??? acetaminophen 975 mg Rectal Q8H BERT ??? insulin regular human 0.5-16 Units/hr Intravenous Change bag every evening ??? ceFEPime 2 g Intravenous Q8H ??? metroNIDAZOLE 500 mg Intravenous Q8H Continuous Infusions: ??? tube feeding diet 30 mL (01/10/19 0058) PRN Meds: potassium chloride in water OR potassium chloride in water OR potassium chloride in water, HYDROmorphone, Glucose 40% oral gel OR dextrose, insulin regular human Vitals: Temp: [36.4 ??C (97.5 ??F)-37 ??C (98.6 ??F)] Heart Rate: [70-87] Resp: [16-28] BP: (126-169)/(61-95) SpO2: [97 %-100 %] Heart Rate from SpO2: [70 bpm-83 bpm] Ins/Outs: Intake/Output Summary (Last 24 hours) at 01/10/2019 0815 Last data filed at 01/10/2019 0631 Intake/Output Summary (Last 24 hours) at 01/12/2019 1315 Last data filed at 01/12/2019 1229 Gross per 24 hour Intake 3574.4 ml Output 1975 ml Net 1599.4 ml Physical Exam: Gen: Obese female resting in bed, confused, agitated, intermittently somnolent HEENT: PERRLA, EOMI, sclera anicteric, OP without evidence of thrush CVS: RRR with normal S1/S2, no appreciable m/r/g; JVD to ~7cm, peripheral pulses full and equal Pulm: CTA b/l anteriorly, breathing non-labored with good air movement, no crackles/rhonchi or wheeze Abd: Obese abdomen, drain in place with serosanguinous fluid, bandaged with compression bands in place. Not tender to gentle palpation, and tammy appear well without erythema. Ext: WWP, no edema, no clubbing, no cyanosis. No erythema or swelling of the RUE Skin: Intact with no rashes, petechiae, or ecchymoses Neuro: CN 2-12 grossly intact; no focal deficits grossly noted. Strength - 5/5 upper extremities. Sensation to light touch intact. Laboratory: Last 3 wbc, hgb, hct plt Recent Labs 01/12/19 1145 01/11/19 0520 01/10/19 0550 WBC 10.4* 11.6* 13.0* HGB 9.7* 9.1* 9.5* HCT 31.2* 29.8* 30.5* PLATELET 241 246 271 Last 3 Lytes Recent Labs 01/12/19 1131 01/11/19 1805 01/11/19 1045 NA 144 146* 147* K 3.6 3.2* 2.9* CL 115* 116* 116* CO2 18* 19* 20* BUN 10 16 20* CREATININE 0.53* 0.58* 0.60* Last 3 LFTs Recent Labs 01/12/19 1131 01/04/19 2125 07/22/18 1803 AST 14 37* 31* ALT 10 30 20 ALKPHOS 79 129* 77 BILITOT 0.3 1.1 0.8 BILIDIR 0.1 0.3 0.2 Last Ca, Mg, Phos Recent Labs 01/12/19 1131 CALCIUM 9.7 PHOS 1.9* Last 3 Coags No results for input(s): PT, INR, PTT in the last 168 hours. Last 3 ProBNP, Trop, CK Recent Labs 01/05/19 1615 TROPONINT 0.25* Last 3 HgbA1C Recent Labs 07/10/18 0320 HA1C 7.8* Microbiology: Lower respiratory culture 01/11 Pending Blood culture 01/08 NGTD at two days Aspergillus Ag <.500 Diagnostic Studies: CT Ches Wo Contrast- 01/06 IMPRESSION 1. Trace right and small left pleural effusions. Subtotal atelectasis of the lower lobes. 2. Additional perihilar and dependent left upper lobe consolidative opacities concerning for aspiration pneumonitis. ?? CT angiogram abd and pelvis-01/06 IMPRESSION Large ventral abdominal wall defect with open abdominal wound with evidence of ischemia within the herniated loops of small bowel within and abutting abdominal Wall. 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 Plan: #Small Bowel Obstruction #Small Bowel resection # Hypophosphatemia # Suspected ICU Delirium Makenna's biggest issue today is her confusion and agitation. She is threatening to leave AMA, howeverat this time lacks insight into her condition. She is able to express a choice but is wholely unableto understand the risk of leaving, appreciate the facts of her condition or voice alternatives in her treatment. As such, she lacks capacity at this time. Her delirium seems to be driven by alteration in sleep wake cycle and maybe some post-operative pain. I do not think it is indicative of worsening infectious process at this time, as her white count isdowntrending, her hemodynamics do not suggest infection and she has no focal findings on exam. We may need to trial haldol this afternoon, especially if patient is to become combative with multiple drains in place. - consider haldol for agitation - Dysphagia soft diet, can consider advancing - Abdominal binder per surgery - Replete low phos with Neutraphos 3 g TID - Continue cefepime 2g Q8H, switch to cipro during loss of IV - Continue metronidazole 500 mg Q8H, switch to oral during loss of IV - Speech consult, appreciate recs # Hypernatremia # DM II Patient removed IV and as such discontinued her insulin drip. We will provide insulin subcutaneouslyat 25 units as she is not on insulin at home and will no longer be on d5. This may need uptitration - 25 units lantus now - SSI- moderate # Urinary retention Patient describes symptomatolgy or overflow incontinence at home (frequent small volume urination with urinary leakage with increased abdominal pressure). She is struggling with sensing a full bladder in her post-operative course. We will keep zheng today and trial voiding trial tomorrow - keep zheng - Voiding trial tomorrow # HTN #Atrial fibrillation - given amiodarone in the ED x2 - On tele currently - Has not had any further episodes #MOSES - On home CPAP - Consider NC at night for comfort if not able to use CPAP #Pain control Pain has been well controlled with occasional IV dilaudid. Will attempt to add on oral pain meds today to minimize IV use going forwards. - Tylenol Q8H scheduled - hydromorphone 0.4 mg IV Q6H PRN - oxycodone 5 mg for more mild pain <7/10 - Continue bowel meds #Thrush- resolved # FEN/PPx - DVT ppx: Heparin and SCDs - Diet/Fluids: NPO Dispo: floor, pending Code Status: Full code TRACE James M.D. PGY-2 Internal Medicine 01/12/2019 Red Team [id number] Associated attestation - Kelsey Eaton MD - 01/12/2019 9:10 PM EDT Attending Attestation Please see Dr. James's note for details of the patient history of presentation and data. I have discussed, reviewed and agree with the documented History, Physical findings, Assessment and Plan of care. 58 y/o with h/o bilateral PCNs for sepsis in past, h/o sarcoid (lung, skin - on prednisone), COPD, MOSES on CPAP, h/o ventral hernia admitted to ICU with shock and acute hypoxic respiratory failure - nows/p bowel resection with closure, hemodynamics have improved. Hypernatremia improved. Today primary issue is delirium and agitation including pulling IVs. WBC has improved, afebrile, Cdiff negative - lower concern for untreated infection. No overt metabolic derangements and hypernatremia improving. Suspect delirium in setting of acute illness. Also Elavil held on admission and possible could contribute to agitation - will resume. Transition off insulin gtt today to basal insulin (at home on GLP 1 receptor agonist, glipizide, metformin) and monitor glucose. Mobilize with PT. I have examined the patient myself and personally reviewed all studies. In addition, I certify that I am a D-H credentialed attending provider with admitting privileges and that the patient meets or has met medical necessity to require an inpatient IPI level of care meeting a minimum of two midnights or is on the [facility] inpatient only procedure list (status C) due to: Shock requiring surgery Morales Pereyra MD - 01/12/2019 6:42 AM EDT Surgery Inpatient Progress Note ID: Blossom Pacheco??is a 58 y.o.??female??with shock of unknown etiology. Underwent negative ex-lap on 01/05/19, left with open abdomen, now 5 Days Post-Op s/p closure with resection of ~80cm of chronically dilated small bowel on 01/07/19. 24hr events: - Tolerating diet and continued ROBF - Remains afebrile - No acute events over night, transferred to floor. Subjective: Reports abdominal pain is minimal. Denies nausea, vomiting, chest pain, and shortness of breath O: Last value Range last 24hrs Temperature Temp: 36.6 ??C (97.9 ??F) Temp: [36.4 ??C (97.5 ??F)-37.6 ??C (99.7 ??F)] Heart Rate Heart Rate: 70 Heart Rate: [70] Blood Pressure BP: 154/63 BP: (119-169)/(60-95) Respiratory Rate Resp: 16 Resp: [16-28] SpO2 SpO2: 99 % SpO2: [97 %-100 %] 01/11 0701 - 01/12 0700 In: 5534.4 [P.O.:1739; I.V.:3485.4] Out: 1980 [Urine:1375] BIANCA: 50 mL Physical Exam: General: NAD, resting comfortably, pleasant and interactive HEENT: PERRL, no scleral icterus CVS: Regular rate and rhythm Pulm: course sounds bilaterally Abd: soft, appropriately tender, incision c/d/i and well approximated with tammy in place, mild reactive erythema, no drainage, BIANCA with serosanguinous output : zheng in place with light yellow urine Skin: warm, dry Ext: no cyanosis Neuro: non-focal, moving all four extremities spontaneously Labs: Recent Labs 01/11/19 0520 01/10/19 0550 WBC 11.6* 13.0* HGB 9.1* 9.5* HCT 29.8* 30.5* PLATELET 246 271 Recent Labs 01/11/19 1805 01/11/19 1045 01/11/19 0520 01/10/19 2208 01/10/19 1515 01/10/19 0810 01/10/19 0550 NA 146* 147* 153* 152* 153* -- 154* K 3.2* 2.9* 3.2* 3.4* 3.1* -- 3.6 CL 116* 116* 119* 119* 118* -- 119* CO2 19* 20* Not Perf * 22 -- 22 BUN 16 20* 24* 28* 30* -- 29* CREATININE 0.58* 0.60* 0.62* 0.65* 0.64* -- 0.63* GLUCOSE 169 182 137 223* 309* -- 183 CALCIUM 9.7 9.4 10.0 9.9 10.2 -- 10.1 MAGNESIUM -- -- 0.78 0.80 -- -- 0.81 PHOS -- -- 2.2* 2.2* -- 1.0* 1.2* Impression/Recommendations: Blossom Pacheco??is a 58 y.o.??female??with shock of unknown etiology, who underwent negative ex-lap on 01/05/19, left with open abdomen, now 5 Days Post-Op s/p resection of ~80cm of chronically dilated small bowel and primary closure on 01/07/19. Overall, she is doing well, fevers have resolved and leukocytosis is down- trending. She has had return of bowel function with loose stools and is tolerating PO intake. Follow-up labs this AM - May advance diet as tolerated - Abdominal binder when OOB at all times to decrease hernia recurrence rate as fascia closed primarily without mesh. - Encourage being out of bed to chair today and ambulation as tolerated. - Continue to watch midline wound for erythema. - Further care as per primary team - Will continue to follow. Please page [phone] during the day or [phone] in the evenings for questions. Recommendations discussed with primary team. Morales Pereyra MD General Surgery PGY-1 [id number] Mateo Lyles RCP - 01/12/2019 2:21 AM EDT Pt declined home CPAP this evening Plan: Continue to offer assistance with home CPAP Makenna Álvarez RN - 01/12/2019 12:44 AM EDT Received pt from transport via bed. Pt confused but easily redirected. Assessment completed. Pt VU to call for any assist needed, signs and symptoms to report, meds and pathway. Bed alarm set. IV's andrates on pump checked. Will continue to monitor Nahomy Huston RCP - 01/11/2019 1:10 PM EDT 01/11/19 0800 Oxygen Therapy O2 Device RA SpO2 98 % Resp 26 pt on room air caitlin well. Pt has no treatments ordered at this time Pt has a Home NIV that she has been refusing Will continue to follow pt Caridad Roa RN - 01/11/2019 7:48 AM EDT OUTCOME EVALUATION NOTE: OUTCOME SUMMARY: Pt able to answer orientation questions however having delirium, believes there is a dog on the unit, and wanting to call police as she feels her sister took her home commode. She is listening to traveling secretary conversations and believes them to be about her, and that people are talking rudely about her outside her room. Frequent redirection needed through the night. Pt is otherwise pleasant. Approx 10 episodes of bowel incontinence overnight. Flexi unsuccessful due to solid pieces in liquidstool. Dilaudid given once overnight for abd pain with good effect. Potassium and phos repleted. PLAN MOVING FORWARD: Reorient as needed for delirium D/c insulin gtt Manage electrolytes Transfer off unit INDIVIDUALIZED FALL PREVENTION INTERVENTIONS: Patient-specific fall risk factors per assessment: [current deficits]: Delirium, generalized weakness Assistance [level of assistance required for transfers and ambulation]: 2 assist in bed Supervision [direct monitoring required during toileting and ADLs]: Indirect, pt rings appropriately Surveillance [continuous indirect monitoring]: Monitor and bed alarms on and audible. Call light in reach. Room near unit station, frequent rounding. Patient-specific fall prevention interventions for sensory deficits provided, if applicable: [X] N/A CPG GOAL OUTCOME EVALUATION: Jaxson Ramos MD - 01/11/2019 7:17 AM EDT Surgery Inpatient Progress Note ID: Blossom Pacheco??is a 58 y.o.??female??with shock of unknown etiology. Underwent negative ex-lap on 01/05/19, left with open abdomen, now POD#4 s/p closure with resection of ~80cm of chronically dilated small bowel on 01/07/19. 24hr events: - NG tube removed, diet advanced and tolerating - WBC continues to trend down, now at 11.6 - Remains afebrile - Multiple liquid bowel movements Subjective: Reports abdominal pain is minimal. Denies nausea, vomiting, chest pain, and shortness of breath O: Last value Range last 24hrs Temperature Temp: 36.9 ??C (98.4 ??F) Temp: [36.9 ??C (98.4 ??F)-37.8 ??C (100 ??F)] Heart Rate Heart Rate: 85 Heart Rate: [74-106] Blood Pressure BP: 106/89 BP: (106-168)/(59-93) Respiratory Rate Resp: 17 Resp: [12-20] SpO2 SpO2: 98 % SpO2: [96 %-98 %] 01/10 0701 - 01/11 0700 In: 3370 [P.O.:640; I.V.:2140] Out: 2089 [Urine:2039] BIANCA: 50 mL Physical Exam: General: NAD, resting comfortably, pleasant and interactive HEENT: PERRL, no scleral icterus CVS: Regular rate and rhythm Pulm: course sounds bilaterally Abd: soft, appropriately tender, incision c/d/i and well approximated with tammy in place, mild reactive erythema, no drainage, BIANCA with serosanguinous output : zheng in place with light yellow urine Skin: warm, dry Ext: no cyanosis Neuro: non-focal, moving all four extremities spontaneously Labs: Recent Labs 01/11/19 0520 01/10/19 0550 01/09/19 0207 WBC 11.6* 13.0* 18.7* HGB 9.1* 9.5* 10.7* HCT 29.8* 30.5* 33.5* PLATELET 246 271 260 Recent Labs 01/11/19 0520 01/10/19 2208 01/10/19 1515 01/10/19 0810 01/10/19 0550 01/09/19 2205 01/09/19 0207 01/08/19 1630 NA -- 152* 153* -- 154* -- 143 -- K -- 3.4* 3.1* -- 3.6 3.5 2.9* -- CL -- 119* 118* -- 119* -- 114* -- CO2 -- 21* 22 -- 22 -- 20* -- BUN -- 28* 30* -- 29* -- 27* -- CREATININE -- 0.65* 0.64* -- 0.63* -- 0.68* -- GLUCOSE -- 223* 309* -- 183 -- 241* -- CALCIUM -- 9.9 10.2 -- 10.1 -- 9.9 -- MAGNESIUM 0.78 0.80 -- -- 0.81 -- 0.81 0.77 PHOS 2.2* 2.2* -- 1.0* 1.2* -- 2.0* 2.5 Impression/Recommendations: Blossom Pacheco??is a 58 y.o.??female??with shock of unknown etiology, who underwent negative ex-lap on 01/05/19, left with open abdomen, now POD#4 s/p resection of ~80cm of chronically dilated smallbowel and primary closure on 01/07/19. Overall, she is doing wells, fevers have resolved and leukocytosis is down- trending. She has had return of bowel function with loose stools and is tolerating PO intake. - May advance diet as tolerated - Abdominal binder when OOB at all times to decrease hernia recurrence rate as fascia closed primarily without mesh. - Encourage being out of bed to chair today and ambulation as tolerated. - Further care as per primary team - Will continue to follow. Please page [phone] during the day or [phone] in the evenings for questions. Recommendations discussed with primary team. Jaxson Ramos MD Carlos Eduardo Tai - 01/11/2019 6:43 AM EDT Inpatient Medicine Progress Note Hospital Day 6 days Active Hospital Problems Diagnosis ??? Shock Resolved Hospital Problems No resolved problems to display. 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 24 Hour Events/Subjective: - Started on D5 yesterday for hypernatremia, electrolytes needed repletion - Started on dysphagia soft diet - Question of RUE swelling, needed IV removed due to likely infiltrate - OT saw, inpatient rehab - Patient is confused this morning - Questions about code status, patient unable to answer at this time ROS: Denies fevers/chills, chest pain, shortness of breath, diarrhea/vomiting/abdominal pain/constipation, muscle aches or weakness. Inpatient Medications: Scheduled Meds: ??? nystatin 500,000 Units Oral TID ??? famotidine 20 mg Oral BID ??? melatonin 3 mg Oral Nightly ??? heparin (Porcine) 5,000 Units Subcutaneous Q8H BERT ??? acetaminophen 1,000 mg Oral Q8H BERT Or ??? acetaminophen 1,000 mg Oral Q8H BERT Or ??? acetaminophen 975 mg Rectal Q8H BERT ??? insulin regular human 0.5-16 Units/hr Intravenous Change bag every evening ??? ceFEPime 2 g Intravenous Q8H ??? metroNIDAZOLE 500 mg Intravenous Q8H Continuous Infusions: ??? tube feeding diet 30 mL (01/10/19 0058) PRN Meds: potassium chloride in water OR potassium chloride in water OR potassium chloride in water, HYDROmorphone, Glucose 40% oral gel OR dextrose, insulin regular human Vitals: Temp: [36.9 ??C (98.4 ??F)-37.8 ??C (100 ??F)] Heart Rate: [74-106] Resp: [12-20] BP: (106-168)/(59-93) SpO2: [96 %-98 %] Heart Rate from SpO2: [73 bpm-105 bpm] Ins/Outs: Intake/Output Summary (Last 24 hours) at 01/10/2019 0815 Last data filed at 01/10/2019 0631 Intake/Output Summary (Last 24 hours) at 01/11/2019 0717 Last data filed at 01/11/2019 0620 Gross per 24 hour Intake 3370 ml Output 2090 ml Net 1280 ml Physical Exam: Gen: Obese female resting in bed, confused, but alert HEENT: PERRLA, EOMI, sclera anicteric, OP with some white patches, MMM CVS: RRR with normal S1/S2, no appreciable m/r/g; JVD to ~7cm, peripheral pulses full and equal Pulm: CTA b/l anteriorly, breathing non-labored with good air movement, no crackles/rhonchi or wheeze Abd: Obese abdomen, drain in place, bandaged with compression bands in place. Not tender to gentle palpation, and no obvious erythema. Ext: WWP, no edema, no clubbing, no cyanosis. No erythema or swelling of the RUE Skin: Intact with no rashes, petechiae, or ecchymoses Neuro: CN 2-12 grossly intact; no focal deficits grossly noted. Strength - 5/5 upper extremities. Sensation to light touch intact. Laboratory: Last 3 wbc, hgb, hct plt Recent Labs 01/11/19 0520 01/10/19 0550 01/09/19 0207 WBC 11.6* 13.0* 18.7* HGB 9.1* 9.5* 10.7* HCT 29.8* 30.5* 33.5* PLATELET 246 271 260 Last 3 Lytes Recent Labs 01/10/19 2208 01/10/19 1515 01/10/19 0550 NA 152* 153* 154* K 3.4* 3.1* 3.6 CL 119* 118* 119* CO2 * 22 22 BUN 28* 30* 29* CREATININE 0.65* 0.64* 0.63* Last 3 LFTs Recent Labs 01/04/19 2125 07/22/18 1803 07/09/18 1950 AST 37* 31* 32* ALT 30 20 25 ALKPHOS 129* 77 73 BILITOT 1.1 0.8 1.2 BILIDIR 0.3 0.2 0.3 Last Ca, Mg, Phos Recent Labs 01/11/19 0520 01/10/19 2208 CALCIUM -- 9.9 PHOS 2.2* 2.2* Last 3 Coags Recent Labs 01/04/19 212 PT 12.2 INR 1.1 PTT 26 Last 3 ProBNP, Trop, CK Recent Labs 01/05/19 1615 01/05/19 1000 01/05/19 0430 TROPONINT 0.25* 0.30* 0.32* Last 3 HgbA1C Recent Labs 07/10/18 0320 HA1C 7.8* Microbiology: Lower respiratory culture 01/11 Pending Blood culture 01/08 NGTD at two days Aspergillus Ag <.500 Diagnostic Studies: CT Ches Wo Contrast- 01/06 IMPRESSION 1. Trace right and small left pleural effusions. Subtotal atelectasis of the lower lobes. 2. Additional perihilar and dependent left upper lobe consolidative opacities concerning for aspiration pneumonitis. ?? CT angiogram abd and pelvis-01/06 IMPRESSION Large ventral abdominal wall defect with open abdominal wound with evidence of ischemia within the herniated loops of small bowel within and abutting abdominal Wall. 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 Plan: #Small Bowel Obstruction #Small Bowel resection # Hypernatremia # DM II # Hypophophatemia Makenna is recovering from her procedure. Surgery continues to follow, and we appreciate their recommendations. Will advance her diet as tolerated per speech and surgery, and plan to continue antibioticsfor the time being. Though she continues to have lots of bowel movements, her resolving leukocytosisand lack of fever does not warrant a workup for c diff at this time. Her hypernatremia is likely dehydration and until we can use the gut we will provide free water in the form of D5. Right now she is on 1/2 NS, but we will check a BMP and if still elevated convert to D5W. We realize this will likely increase her insulin requirements and as such leave her on insulin gtt today with intent to change in the near future. Her hyperphosphatemia is almost certainly multifactorial- poor PO intake and history of inappropriately Elevated PTH. Her repletion will finish today, and she has come up appropriately. 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 For reference labs on 11/07 revealed PTH WNL, 25 OH of 32 (low), Calcium of 11.6. To me, this appearslike an inapporiately high PTH in setting of hypercalcemia consistent with her suspected Dx of primary hyperparathyroidism. - NG removed 01/10 - Dysphagia soft diet, can consider advancing - Abdominal binder per surgery - Replete low phos with Neutraphos 3 g TID, last dose today - Continue cefepime 2g Q8H - Continue metronidazole 500 mg Q8H - Speech consult, appreciate recs # Urinary retention Patient describes symptomatolgy or overflow incontinence at home (frequent small volume urination with urinary leakage with increased abdominal pressure). She is struggling with sensing a full bladder in her post-operative course. She received a zheng yesterday and we will plan for voiding trial tomorrow. - Place zheng - Voiding trial tomorrow #Atrial fibrillation - given amiodarone in the ED x2 - On tele currently - Has not had any further episodes #MOSES - On home CPAP - Consider NC at night for comfort if not able to use CPAP #Pain control Pain has been well controlled with occasional IV dilaudid. Will attempt to add on oral pain meds today to minimize IV use going forwards. - Tylenol Q8H scheduled - Spacing hydromorphone 0.4 mg IV Q6H PRN - Will add oxycodone 5 mg for more mild pain - Continue bowel meds #Thrush - Continue nystatin # FEN/PPx - DVT ppx: Heparin and SCDs - Diet/Fluids: NPO Dispo: floor, pending Code Status: Full code Carlos Eduardo Tai M.D. PGY-1 Internal Medicine 01/11/2019 Red Team [id number] Associated attestation - Kelsey Eaton MD - 01/11/2019 6:31 PM EDT Attending Attestation Please see Dr. Tai's note for details of the patient history of presentation and data. I have discussed, reviewed and agree with the documented History, Physical findings, Assessment and Plan of care. 58 y/o with h/o bilateral PCNs for sepsis in past, h/o sarcoid (lung, skin - on prednisone), COPD, MOSES on CPAP, h/o ventral hernia admitted to ICU with shock and acute hypoxic respiratory failure - nows/p bowel resection with closure, hemodynamics have improved. Advancing diet. Seems has had some delirium from ICU/shock - continue to monitor. Hypernatremia improving - if worsens again can change to D5W. Keeping insulin gtt with the dextrose but when Na stable, change to SQ dosing (not on insulin asoutpatient). WBC has improved. Mobilize with PT. Transfer to floor. I have examined the patient myself and personally reviewed all studies. In addition, I certify that I am a [facility] credentialed attending provider with admitting privileges and that the patient meets or has met medical necessity to require an inpatient IPI level of care meeting a minimum of two midnights or is on the CMS inpatient only procedure list (status C) due to: Shock requiring surgery Patricia Joiner RN - 01/10/2019 8:27 PM EDT Pt's orientation varies throughout shift. Zheng placed for urinary retention. NG DC'd. TF DC'd. Dietadvanced to dysphasia soft and thin liquids. RAC PIV DC'd due to increased size of arm. IV team to bedside to assess. Uncertain of infiltrate, therefore a Duplex of BUE completed at the bedside to ruleout a possible thrombus. K repleted. Results pending. Kasie Reyes repleted w minimal results. Sister at the bedside throughout the morning. Transferred to L5 status, pending bed availability. Tanna Stacy RN - 01/10/2019 4:46 PM EDT VAS called to assess PIV in R AC. R arm measures 34 cms just below elbow and L arm measures 29 cms. Swelling extends down towards wrist. Dopplers scheduled. PIV removed Ted Rajan MD - 01/10/2019 1:56 PM EDT Surgery Inpatient Progress Note ID: Blossom Pacheco??is a 58 y.o.??female??with shock of unknown etiology. Underwent negative ex-lap on 01/05/19, left with open abdomen, now POD#2 s/p closure with resection of ~80cm of chronically dilated small bowel on 01/07/19. 24hr events: - WBC down - Formed stool yesterday -NGT trickle feeds started Subjective: Denies abdominal pain O: Last value Range last 24hrs Temperature Temp: 37.2 ??C (99 ??F) Temp: [36.9 ??C (98.5 ??F)-38.1 ??C (100.6 ??F)] Heart Rate Heart Rate: 91 Heart Rate: [91-101] Blood Pressure BP: 151/59 BP: (140-157)/(59-72) Respiratory Rate Resp: 13 Resp: [8-16] SpO2 SpO2: 97 % SpO2: [93 %-98 %] ventilated 01/09 0701 - 01/10 0700 In: 1848.4 [I.V.:1589.4] Out: 1270 [Urine:950] BIANCA: 65 mL; N Physical Exam: General: NAD, resting comfortably, pleasant and interactive HEENT: PERRL, no scleral icterus CVS: Regular rate and rhythm Pulm: course sounds bilaterally Abd: soft, appropriately tender, incision c/d/i and well approximated with tammy in place, no erythema or drainage, BIANCA with serosanguinous output : zheng in place with light yellow urine Skin: warm, dry Ext: no cyanosis Neuro: non-focal, moving all four extremities spontaneously Labs: Recent Labs 01/10/19 0550 01/09/19 0207 01/08/19 0145 WBC 13.0* 18.7* 12.0* HGB 9.5* 10.7* 11.0* HCT 30.5* 33.5* 34.7* PLATELET 271 260 169 Recent Labs 01/10/19 0810 01/10/19 0550 01/09/19 2205 01/09/19 0207 01/08/19 1630 01/08/19 0145 NA -- 154* -- 143 -- 144 K -- 3.6 3.5 2.9* -- 3.5 CL -- 119* -- 114* -- 113* CO2 -- 22 -- 20* -- 20* BUN -- 29* -- 27* -- 28* CREATININE -- 0.63* -- 0.68* -- 0.92 GLUCOSE -- 183 -- 241* -- 214* CALCIUM -- 10.1 -- 9.9 -- 9.4 MAGNESIUM -- 0.81 -- 0.81 0.77 -- PHOS 1.0* 1.2* -- 2.0* 2.5 3.4 Impression/Recommendations: Blossom Pacheco??is a 58 y.o.??female??with shock of unknown etiology, who underwent negative ex-lap on 01/05/19, left with open abdomen, now POD#3 s/p resection of ~80cm of chronically dilated smallbowel and primary closure on 01/07/19. She continues to have ongoing fevers and mild tachycardia although WBC down today. At this point her abdominal exam remains benign and she has started moving her bowels. Ok from surgical standpoint to remove NGT and feed her. - Monitor UOP and give fluids as needed, recommend avoiding lasix in immediate post-operative setting. - If ongoing fevers and worsening leukocytosis in the setting of increased diarrhea, consider sending C. Difficile culture - Abdominal binder when OOB at all times to decrease hernia recurrence rate as fascia closed primarily without mesh. - Encourage being out of bed to chair today and ambulation as tolerated. IS 10x/hour. - Further care as per primary team/ICU - Will continue to follow. Please page [phone] during the day or [phone] in the evenings for questions. Recommendations discussed with primary team. Ted Rajan MD Albert James MD - 01/10/2019 1:12 PM EDT Inpatient Medicine Progress Note Hospital Day 6 days Active Hospital Problems Diagnosis ??? Shock Resolved Hospital Problems No resolved problems to display. 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 24 Hour Events/Subjective: - Removed NG tube, unable to explain why, new ng tube placed - 1 fever at 5 AM ROS: Denies fevers/chills, chest pain, shortness of breath, diarrhea/vomiting/abdominal pain/constipation, muscle aches or weakness. Inpatient Medications: Scheduled Meds: ??? nystatin 500,000 Units Oral TID ??? famotidine 20 mg Oral BID ??? melatonin 3 mg Oral Nightly ??? heparin (Porcine) 5,000 Units Subcutaneous Q8H BERT ??? acetaminophen 1,000 mg Oral Q8H BERT Or ??? acetaminophen 1,000 mg Oral Q8H BERT Or ??? acetaminophen 975 mg Rectal Q8H BERT ??? insulin regular human 0.5-16 Units/hr Intravenous Change bag every evening ??? ceFEPime 2 g Intravenous Q8H ??? metroNIDAZOLE 500 mg Intravenous Q8H Continuous Infusions: ??? tube feeding diet 30 mL (01/10/19 0058) PRN Meds: potassium chloride in water OR potassium chloride in water OR potassium chloride in water, HYDROmorphone, Glucose 40% oral gel OR dextrose, insulin regular human Vitals: Last value Range last 24 hrs Temperature Temp: 37.6 ??C (99.6 ??F) Temp: [36.9 ??C (98.5 ??F)-38.1 ??C (100.6 ??F)] Heart Rate Heart Rate: (!) 101 Heart Rate: [87-101] Blood Pressure BP: 157/65 BP: (140-157)/(63-72) Respiratory Rate Resp: 16 Resp: [8-16] SpO2 SpO2: 93 % SpO2: [93 %-99 %] Ins/Outs: Intake/Output Summary (Last 24 hours) at 01/10/2019 0815 Last data filed at 01/10/2019 0631 Gross per 24 hour Intake 1848.42 ml Output 820 ml Net 1028.42 ml Physical Exam: Gen: Obese, diaphoretic female resting in bed, tired appearing, with an NG tube in place HEENT: PERRLA, EOMI, sclera anicteric, OP with some white patches, MMM CVS: RRR with normal S1/S2, no appreciable m/r/g; JVD to ~7cm, peripheral pulses full and equal Pulm: CTA b/l anteriorly, breathing non-labored with good air movement, no crackles/rhonchi or wheeze Abd: Obese abdomen, drain in place, bandaged with compression bands in place. Not tender to gentle palpation, and no obvious erythema. Ext: WWP, no edema, no clubbing, no cyanosis. Skin: Intact with no rashes, petechiae, or ecchymoses Neuro: CN 2-12 grossly intact; no focal deficits grossly noted. Strength - 5/5 upper extremities. Sensation to light touch intact. Laboratory: CBC: Recent Labs 01/10/19 0550 01/09/19 0207 01/08/19 0145 WBC 13.0* 18.7* 12.0* HGB 9.5* 10.7* 11.0* PLATELET 271 260 169 Chemistry: Recent Labs 01/10/19 0550 01/09/19 2205 01/09/19 0207 01/08/19 0145 NA 154* -- 143 144 K 3.6 3.5 2.9* 3.5 CL 119* -- 114* 113* CO2 22 -- 20* 20* BUN 29* -- 27* 28* CREATININE 0.63* -- 0.68* 0.92 GLUCOSE 183 -- 241* 214* Recent Labs 01/10/19 0550 01/09/19 0207 01/08/19 1630 01/08/19 0145 CALCIUM 10.1 9.9 -- 9.4 MAGNESIUM 0.81 0.81 0.77 -- PHOS 1.2* 2.0* 2.5 3.4 LFT's: Recent Labs 01/04/19 2125 07/22/18 1803 07/09/18 1950 BILITOT 1.1 0.8 1.2 BILIDIR 0.3 0.2 0.3 ALBUMIN 4.7 3.9 3.8 ALKPHOS 129* 77 73 ALT 30 20 25 AST 37* 31* 32* Coags: Recent Labs 01/04/192124 PT 12.2 INR 1.1 PTT 26 DDIMER 5,972* Cardiac enzymes: Recent Labs 01/05/19 1615 01/05/19 1000 01/05/19 0430 TROPONINT 0.25* 0.30* 0.32* Endocrine: Recent Labs 01/04/192124 TSH 2.90 Heme: No results for input(s): LDH, HAPTOGLOBIN, URICACID in the last 168 hours. Microbiology: None Diagnostic Studies: CT Ches Wo Contrast- 01/06 IMPRESSION 1. Trace right and small left pleural effusions. Subtotal atelectasis of the lower lobes. 2. Additional perihilar and dependent left upper lobe consolidative opacities concerning for aspiration pneumonitis. ?? CT angiogram abd and pelvis-01/06 IMPRESSION Large ventral abdominal wall defect with open abdominal wound with evidence of ischemia within the herniated loops of small bowel within and abutting abdominal Wall. 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 Plan: #Small Bowel Obstruction #Small Bowel resection # Hypernatremia # DM II # Hypophophatemia Makenna is recovering from her procedure. Surgery continues to follow, and we appreciate their recommendations. Will advance her diet as tolerated per speech and surgery, and plan to continue antibiotics. Low level fever overnight is less of a concern but will repeat infectious workup if continuing and send cdiff if stooling was to worsen (but has slowed in last 24 hour). Her hypernatremia is likely dehydration and until we can use the gut we will provide free water in the form of D5 1/2. We realize this will likely increase her insulin requirements and as such leave her on insulin gtt today with intent to change in next 2 days. Her hyperphosphatemia is almost certainly multifactorial- poor PO intake and history of inappropriately Elevated PTH. 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 To me, this appearslike an inapporiately high PTH in setting of hypercalcemia consistent with her suspected Dx of primary hyperparathyroidism. - Continue NG - Tube feeds at trickle per surgery, advance at their reccomendations - Abdominal binder per surgery - Replete low phos with Neutraphos 3 g TID - Continue cefepime 2g Q8H - Continue metronidazole 500 mg Q8H - Continue famotidine 20 mg daily - Speech consult, appreciate recs # Urinary retention Patient describes symptomatolgy or overflow incontinence at home (frequent small volume urination with urinary leakage with increased abdominal pressure). She is struggling with sensing a full bladder in her post-operative course. We will place a zheng today and do voiding trial in 48 hours. - Place zheng #Atrial fibrillation - given amiodarone in the ED x2 - On tele currently - Has not had any further episodes #MOSES - On home CPAP, unclear if ok to use, will f/u with surgery - Consider NC at night for comfort if not able to use CPAP #Pain control - Tylenol Q8H scheduled - Spacing hydromorphone 0.4 mg IV Q6H PRN - will layer on bowel meds pending recs #Thrush- resolved - d/c nystatin # FEN/PPx - DVT ppx: Heparin and SCDs - Diet/Fluids: NPO Dispo: Transfer to [facility] status Code Status: Full code TRACE James M.D. PGY-2 Internal Medicine 01/10/2019 Red team Pager [phone] Associated attestation - Andria Pena III, MD - 01/10/2019 4:10 PM EDT Attending Attestation Please see Dr James's note for details of the patient history of presentation and data. I have discussed, reviewed and agree with the documented History, Physical findings, Assessment and Plan of care. I have examined the patient myself and personally reviewed all studies. In addition, I certify that I am a [facility]-H credentialed attending provider with admitting privileges and that the patient meets or has met medical necessity to require an inpatient IPI level of care meeting a minimum of two midnights or is on the [facility] inpatient only procedure list (status C) due to: monitoring of fluid status given aninability to regulate fluid balance and the need for administration or restriction of fluids and resolving sepsis Ted Herrera, BRYAN - 01/09/2019 11:30 PM EDT NG out of patient nose and on the floor upon RN entrance into room. When asked why patient had pulled the tube out of her nose, she states, I don't know. She answers orientation questions correctly and knows she is in the hospital because she has had surgery. Hospital medicine aware of incident, newNG tube to be placed and soft mitts to be applied to prevent further pulling of lines/tubes/dressings. Patient agreeable with plan of care. Marjorie Verdin RD - 01/09/2019 11:02 AM EDT Clinical Nutrition Consult Note Reason for intervention: Consult TF Recommendations: Note General Surgery wants trickle feeds only today. ?? Suggest starting with Peptamen AF. ?? Eventual goal rate would be 65 ml per hour. Total goal volume daily is 1300 ml. This rate is calculated to compensate for unplanned time off feedings due to potential procedures, etc. At goal, this will provide 1560 calories, 99 grams protein, 1050 ml water from formula + 0 ml water from protein powder administration and 100% of RDI's for vitamins and minerals. ?? Propofol at current rate will provide 214 calories from lipid daily - would check TG once weekly while on propofol. ?? Will need to correct lytes prior to advancing TFs. ?? Labs: please ensure Mg and Phos are on daily labs. ?? Monitor weight. ?? May want to consider diabetes management team consult if BG continue to be difficult to control. I was able to reach the patient's provider, NAUN B2 on pager [phone], regarding above. Blossom Pacheco is a 58 y.o. 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 - per critical care medicine Active Problems: Shock Lab Results Component Value Date NA 143 01/09/2019 K 2.9 (CRIT) 01/09/2019 CL 114 (H) 01/09/2019 CO2 20 (L) 01/09/2019 BUN 27 (H) 01/09/2019 CREATININE 0.68 (L) 01/09/2019 GLUCOSE 241 (H) 01/09/2019 MAGNESIUM 0.81 01/09/2019 CALCIUM 9.9 01/09/2019 PHOS 2.5 01/08/2019 AST 37 (H) 01/04/2019 ALT 30 01/04/2019 ALKPHOS 129 (H) 01/04/2019 BILITOT 1.1 01/04/2019 BILIDIR 0.3 01/04/2019 TRIG 271 07/10/2018 Other pert. Labs: Results for BLOSSOM PACHECO ( ) as of 01/09/2019 10:50 Ref. Range 07/10/2018 03:20 Hemoglobin A1C Latest Ref Range: 4.3 - 5.6 % 7.8 (H) I/O last 3 completed shifts: In: 3094.2 [I.V.:2134.2; Other:360; IV Piggyback:600] Out: 4755 [Urine:4630; Other:125] Last BM: 01/09 Feeding tube: NGT Skin: intact on admit Infusion Meds: ??? tube feeding diet ??? fentaNYL 25 mcg/hr (01/08/19 1800) Scheduled Meds: ??? famotidine 20 mg Oral BID ??? melatonin 3 mg Oral Nightly ??? heparin (Porcine) 5,000 Units Subcutaneous Q8H BERT ??? acetaminophen 1,000 mg Oral Q8H BERT Or ??? acetaminophen 1,000 mg Oral Q8H BERT Or ??? acetaminophen 975 mg Rectal Q8H BERT ??? shift total and Settings verification 1 each Intravenous 2 Times Daily - Shift Total ??? insulin regular human 0.5-16 Units/hr Intravenous Change bag every evening ??? ceFEPime 2 g Intravenous Q8H ??? metroNIDAZOLE 500 mg Intravenous Q8H PRN Meds: potassium chloride in water OR potassium chloride in water OR potassium chloride in water, Glucose 40% oral gel OR dextrose, insulin regular human, Assess AND [] fentaNYL ANDfentaNYL AND fentaNYL AND shift total and Settings verification Estimated body mass index is 47.99 kg/m?? as calculated from the following: Height as of this encounter: 170 cm (5' 6.93). Weight as of this encounter: 138.7 kg (305 lb 12.5 oz). Adm weight (kg): 138.3 kg [place] body weight: 61.4 kg (135 lb 7.1 oz) Adjusted ideal body weight: 92.3 kg (203 lb 9.2 oz) Nutrition needs estimated at: 0933-0016 calories (hypocaloric) and 95+ grams protein daily. JACINTO CRUZ Pager # [phone] Barbara Lopez, REGISTERED DIETICIAN - 01/09/2019 10:21 AM EDT Speech-Language Pathology Consult Note Order received for swallow evaluation; however, as per this AM General surgery note, pt not currently cleared for PO trials due to GI issues. Contacted RN to discuss, he states critical care just rounded and they want swallow assessment to transition to PO meds off of IV. Confirmed w/ Gen Surgery resident what I would be OK to try. OK for small sips clears today, still some concern for ileus as per resident. Will proceed w/ limited PO trials as tolerated. Blossom Pacheco??is a 58 y.o.??female??with shock of unknown etiology, who underwent negative ex-lap on 01/05/19, left with open abdomen, now POD#2 s/p resection of ~80cm of chronically dilated small bowel and primary closure on 01/07/19. She continues to have ongoing fevers and worsening leukocytosis of unclear etiology. At this point her abdominal exam remains benign and she has started moving her bowels. Given ongoing confusion, would recommend starting trophic tube feeds and checking residualsto ensure no aspiration event occurs. ?? - Maintain NG tube and start trophic tube feeds at 10 mL/hr, do not increase today, check residuals every 4-6 hours to ensure emptying. Barbara Lopez MA CCC-REGISTERED DIETICIAN Inpatient Rehabilitation Medicine pager:# [phone] Marjorie Verdin, RD - 01/09/2019 9:15 AM EDT Nutrition Services Blossom Pacheco is a 58 y.o. female Patient Active Problem List Diagnosis Code ??? [...] Renal calculus, left N20.0 ??? Shock R57.9 Past Surgical History: Procedure Laterality Date ??? PRG ECHOENCEPHALOGRAPH REAL TIME Left 11/07/2018 ULTRASOUND USE (WRVU 0.63) performed by Crow Galvin Jr., MD at [facility] OR ??? PRG FLUOROSCOPY EXAM [facility] N[facility]A 09/26/2018 FLUOROSCOPY (WRVU 0.17) performed by Crow Galvin Jr., MD at [facility] OR ??? PRG FLUOROSCOPY EXAM UP TO 1 HR PHY OR OTH TH CARE PROV N/A 11/07/2018 FLUOROSCOPY (WRVU 0.17) performed by Crow Galvin Jr., MD at [facility] OR ??? PRG US GUIDE INTRAOP Right 09/26/2018 ULTRASONIC GUIDANCE, INTRAOP (WRVU 1.2) performed by Crow Galvin Jr., MD at [facility] OR ? ? PRO CYSTO W URETEROSCOPY &/OR PYELOSCOPY, DX Right 09/26/2018 CYSTOURETEROSCOPY, DIAGNOSTIC (WRVU 5.75) performed by Crow Galvin Jr., MD at [facility] OR ? ? PRO CYSTO W URETEROSCOPY &/OR PYELOSCOPY, DX Left 11/07/2018 CYSTOURETEROSCOPY, DIAGNOSTIC (WRVU 5.75) performed by Crow Galvin Jr., MD at [facility] OR ??? PRO CYSTOSCOPY, INSERT URETERAL STENT Right 07/10/2018 CYSTO, STENT PLACEMENT (WRVU 2.82) performed by Viky Sears MD at [facility] OR ??? PRO CYSTOSCOPY, REMV CALCULUS, COMPLIC Right 09/26/2018 CYSTO, REMOVAL OF STENT, FOREIGN BODY, CALCULUS, COMPLICATED (WRVU 5.2) performed by Crow Galvin MD at [facility] OR ??? PRO CYSTOURETHROSCOPY, URETER CATHETER Right 07/10/2018 CYSTO, RETROGRADE, URETEROPYELOGRAPHY (WRVU 2.37) performed by Viky Sears MD at [facility] MAIN OR ??? PRO CYSTOURETHROSCOPY, URETER CATHETER Right 09/26/2018 CYSTO, RETROGRADE, URETEROPYELOGRAPHY, W/PCNL (WRVU 2.37) performed by Crow Galvin Jr., MD at [facility] MAIN OR ??? PRO EXPLORATORY OF ABDOMEN N/A 01/05/2019 @EXPLORATORY LAPAROTOMY, WITH/WITHOUT BIOPSY(S) (WRVU 12.54) performed by Ace Henry MD at [facility] OR ??? PRO EXPLORATORY OF ABDOMEN N/A 01/07/2019 @EXPLORATORY LAPAROTOMY, WITH/WITHOUT BIOPSY(S) (WRVU 12.54) performed by Ace Henry MD at [facility] OR ??? PRO FREEING BOWEL ADHESION, ENTEROLYSIS N/A 01/05/2019 @LYSIS OF ADHESIONS, ABD. (WRVU 18.46) performed by Ace Henry MD at [facility] OR ? ? PRO PERCUTANEOUS NEPHROSTOLITHOTOMY/PYELOSTOLITHOTOMY > 2 CM Right 09/26/2018 NEPHROLITHOTOMY, (PCNL) PERCUTANEOUS, OVER 2CM (WRVU 23.5) performed by Crow Galvin Jr., MD at [facility] OR ? ? PRO PERCUTANEOUS NEPHROSTOLITHOTOMY/PYELOSTOLITHOTOMY > 2 CM Left 11/07/2018 NEPHROLITHOTOMY, (PCNL) PERCUTANEOUS, OVER 2CM (WRVU 23.5) performed by Crow Galvin Jr., MD at [facility] MA[facility] OR ? ? PRO PLNY NEPHROSTOMY CATH PRQ NEW ACCESS RS&I Right 09/26/2018 NEPHROSTOMY CATHETER, PERC, INC DX NEPHROSTOGRAM/URETEROGRAM, IMG GUIDANCE (WRVU 4.25) performed byCrow Galvin Jr., MD at [facility] OR ? ? PRO PLNY NEPHROSTOMY CATH PRQ NEW ACCESS RS&I Left 11/07/2018 NEPHROSTOMY CATHETER, PERC, INC DX NEPHROSTOGRAM/URETEROGRAM, IMG GUIDANCE (WRVU 4.25) performed byCrow Galvin Jr., MD at [facility] MAIN OR ??? PRO RENAL ENDOSCOPY, TREATMENT Left 11/07/2018 RENAL ENDOSCOPY W\FULG, W\WO\BX, VIA NEPHROSTOMY (WRVU 6.61) performed by Crow Galvin Jr., MD [facility] MAIN OR ??? PRO RESECT SMALL INTEST, SINGL RESEC/ANAS N/A 01/07/2019 @BOWEL RESECTION, SMALL INTESTINE SINGLE ANASTOMOSIS (WRVU 20.82) performed by Ace Henry MD at [facility] OR Estimated body mass index is 47.99 kg/m?? as calculated from the following: Height as of this encounter: 170 cm (5' 6.93). Weight as of this encounter: 138.7 kg (305 lb 12.5 oz). Patient has been NPO and/or on clear liquids for 5-6 days increasing nutritional risk. If diet can not be advanced within 24 hours, please consider alternative means of nutrition support. Please consult Nutrition Services staff to help customize nutrition support to patients needs if consistent with treatment plan. JACINTO CRUZ Jaxson Ramos MD - 01/09/2019 8:31 AM EDT Surgery Inpatient Progress Note ID: Blossom Pacheco??is a 58 y.o.??female??with shock of unknown etiology. Underwent negative ex-lap on 01/05/19, left with open abdomen, now POD#2 s/p closure with resection of ~80cm of chronically dilated small bowel on 01/07/19. 24hr events: - Extubated yesterday afternoon, weaned to RA this morning - Ongoing fevers during the day, last febrile to 38 at 0000 - Continues on insulin gtt and fentanyl gtt for pain control - Given lasix overnight - WBC up to 18k this AM Subjective: Reports some abdominal incision pain, adequately controlled. Had two loose BMs overnight. Denies nausea, chest pain, and shortness of breath. O: Last value Range last 24hrs Temperature Temp: 37.4 ??C (99.3 ??F) Temp: [37.4 ??C (99.3 ??F)-38.9 ??C (102 ??F)] Heart Rate Heart Rate: 90 Heart Rate: [59-100] Blood Pressure BP: 137/68 BP: (107-185)/(51-75) Respiratory Rate Resp: (!) 54 Resp: [17-54] SpO2 SpO2: 98 % SpO2: [92 %-99 %] ventilated 01/08 0701 - 01/09 0700 In: 1827.2 [I.V.:987.2] Out: 3930 [Urine:3840] BIANCA: 65 mL; N Physical Exam: General: NAD, resting comfortably, pleasant and interactive HEENT: PERRL, no scleral icterus CVS: Regular rate and rhythm Pulm: course sounds bilaterally Abd: soft, appropriately tender, incision c/d/i and well approximated with tammy in place, no erythema or drainage, BIANCA with serosanguinous output : zheng in place with light yellow urine Skin: warm, dry Ext: no cyanosis Neuro: non-focal, moving all four extremities spontaneously Labs: Recent Labs 01/09/19 0207 01/08/19 0145 01/07/19 0840 01/07/19 0415 01/06/19 1255 WBC 18.7* 12.0* 11.0* 10.4* 11.6* HGB 10.7* 11.0* 10.4* 10.2* 10.9* HCT 33.5* 34.7* 32.6* 32.5* 34.4* PLATELET 260 169 155 154 150 Recent Labs 01/09/19 0207 01/08/19 1630 01/08/19 0145 01/07/19 1325 01/07/19 0840 01/07/19 0415 01/06/19 1255 NA 143 -- 144 141 144 143 144 K 2.9* -- 3.5 3.6 3.9 3.6 3.9 CL 114* -- 113* 113* 111* 110* 108* CO2 20* -- 20* 20* 21* 22 21* BUN 27* -- 28* 22* 24* 24* 18 CREATININE 0.68* -- 0.92 0.76 0.83 0.84 0.70 GLUCOSE 241* -- 214* 152 202* 216* 269* CALCIUM 9.9 -- 9.4 9.4 9.8 9.8 9.7 MAGNESIUM 0.81 0.77 -- 0.91 -- 0.77 0.79 PHOS -- 2.5 3.4 2.6 -- 3.2 2.5 Impression/Recommendations: Blossom Pacheco??is a 58 y.o.??female??with shock of unknown etiology, who underwent negative ex-lap on 01/05/19, left with open abdomen, now POD#2 s/p resection of ~80cm of chronically dilated smallbowel and primary closure on 01/07/19. She continues to have ongoing fevers and worsening leukocytosis of unclear etiology. At this point her abdominal exam remains benign and she has started moving herbowels. Given ongoing confusion, would recommend starting trophic tube feeds and checking residuals to ensure no aspiration event occurs. - Maintain NG tube and start trophic tube feeds at 10 mL/hr, do not increase today, check residuals every 4-6 hours to ensure emptying - Monitor UOP and give fluids as needed, recommend avoiding lasix in immediate post-operative setting. - If ongoing fevers and worsening leukocytosis in the setting of increased diarrhea, consider sending C. Difficile culture - Abdominal binder when OOB at all times to decrease hernia recurrence rate as fascia closed primarily without mesh. - Encourage being out of bed to chair today and ambulation as tolerated. IS 10x/hour. - Further care as per primary team/ICU - Will continue to follow. Please page [phone] during the day or [phone] in the evenings for questions. Recommendations discussed with primary team. Jaxson Ramos MD Rose Schreiber MD - 01/09/2019 6:52 AM EDT Critical Care Medicine - ICU Progress Note ID: Blossom Pacheco is a 58 y.o. 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 24 Hour/Subjective: - Patient was extubated and weaned off sedation yesterday afternoon - Was given lasix 60 mg IV, net negative 2.1L over 24 hours - complaining of feeling short of breath while laying flat although oxygenation remains stable Objective: Vitals: Last value Range last 24hrs Temperature Temp: 37.4 ??C (99.3 ??F) Temp: [37.4 ??C (99.3 ??F)-38.9 ??C (102 ??F)] Heart Rate Heart Rate: 90 Heart Rate: [59-100] Blood Pressure BP: 137/68 BP: (104-185)/(51-75) Respiratory Rate Resp: (!) 54 Resp: [17-54] SpO2 SpO2: 98 % SpO2: [92 %-99 %] BMI Body mass index is 47.99 kg/m??. Oxygen Therapy O2 Device: None (Room air) O2 Flow Rate (L/min): 0 L/min FiO2 (%): 30 % In/Out's: Intake/Output Summary (Last 24 hours) at 01/09/2019 0652 Last data filed at 01/09/2019 0631 Gross per 24 hour Intake 1827.18 ml Output 3930 ml Net -2102.82 ml Admit wt: 138.3 kg MEDICATIONS: ??? famotidine 20 mg Oral BID ??? melatonin 3 mg Oral Nightly ??? heparin (Porcine) 5,000 Units Subcutaneous Q8H BERT ??? acetaminophen 1,000 mg Oral Q8H BERT Or ??? acetaminophen 1,000 mg Oral Q8H BERT Or ??? acetaminophen 975 mg Rectal Q8H BERT ??? shift total and Settings verification 1 each Intravenous 2 Times Daily - Shift Total ??? insulin regular human 0.5-16 Units/hr Intravenous Change bag every evening ??? ceFEPime 2 g Intravenous Q8H ??? metroNIDAZOLE 500 mg Intravenous Q8H potassium chloride in water OR potassium chloride in water OR potassium chloride in water, Glucose 40% oral gel OR dextrose, insulin regular human, Assess AND [] fentaNYL ANDfentaNYL AND fentaNYL AND shift total and Settings verification ??? fentaNYL 25 mcg/hr (01/08/19 1800) Physical Exam: Gen: NAD, lying in bed in no acute distress HEENT: Oropharynx clear, moist mucus membranes, CV: Normal rate, regular rhythm, No murmurs/rubs/gallops Pulm: intubated no rales/rhonchi/wheezes, Abd: Non-distended, normal bowel sounds in all 4 quadrants, soft, tender over surgical site Ext: No pedal edema, 2+ radial/DP pulses Skin: Warm, dry, no rashes Lymph: No cervical/supraclav/axillary/inguinal nodes Neuro: CN 2-12 intact, strength 5/5 in UE and LE b/l, no sensory deficits noted Labs: Last 3 wbc, hgb, hct plt Recent Labs 01/09/19 0207 01/08/19 0145 01/07/19 0840 WBC 18.7* 12.0* 11.0* HGB 10.7* 11.0* 10.4* HCT 33.5* 34.7* 32.6* PLATELET 260 169 155 Last 3 Lytes Recent Labs 01/09/19 0207 01/08/19 0145 01/07/19 1325 NA 143 144 141 K 2.9* 3.5 3.6 CL 114* 113* 113* CO2 20* 20* 20* BUN 27* 28* 22* CREATININE 0.68* 0.92 0.76 Last 3 LFTs Recent Labs 01/04/19 2125 07/22/18 1803 07/09/18 1950 AST 37* 31* 32* ALT 30 20 25 ALKPHOS 129* 77 73 BILITOT 1.1 0.8 1.2 BILIDIR 0.3 0.2 0.3 Last Ca, Mg, Phos Recent Labs 01/09/19 0207 01/08/19 1630 CALCIUM 9.9 -- PHOS -- 2.5 Last 3 Coags Recent Labs 01/04/19 2125 PT 12.2 INR 1.1 PTT 26 Last 3 ProBNP, Trop, CK Recent Labs 01/05/19 1615 01/05/19 1000 01/05/19 0430 TROPONINT 0.25* 0.30* 0.32* Microbiology: Microbiology Results (Last 30 days) Procedure Component Value Units Date/Time Urine culture [[id number]] Collected: 01/05/19 1035 Lab Status: Final result Specimen: Indwelling Catheter Urine Updated: 01/06/19 0739 Urine Culture No growth (Less than 1,000 cfu/ml). Blood culture [[id number]] Collected: 01/05/19 0130 Lab Status: Preliminary result Specimen: Blood Updated: 01/08/19701 Blood Culture No growth at 3 days. Interval Studies/Imaging CT abdomen angio: Large ventral abdominal wall defect with open abdominal wound with evidence of ischemia within the herniated loops of small bowel within and abutting abdominal wall. CT Chest: 1. Trace right and small left pleural effusions. Subtotal atelectasis of the lower lobes. 2. Additional perihilar and dependent left upper lobe consolidative opacities concerning for aspiration pneumonitis. Assessment: Blossom Pacheco is a 58 y.o. 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 Makenna continues to show improvement and successfully remained off vent support. She still has some confusion and cognitively slowing this morning which can be due to medication and pain. She no longer has critical care needs and can be transferred to floor this morning. Transfer to hospital medicine Neuro: #pain management - d/c fentanyl drip - start dilaudid 0.4 mg Q4H PRN ?? Pulm: #Hypoxic respiratory failure- resolved - extubation successfully 01/08 - uses CPAP at home will talk to surgery if ok to use w/ abdominal sutures ?? CV: #Shock, likely mixed 2/2 distributive/cardiogenic - all pressors weaned off on 01/05 -Antimicrobials as below -Cardiology consulted appreciate recs ?? #Afib/flutter- resolved - Telemetry - S/p amiodarone in ED ?? GI: #Incarcerated abdominal hernia/ ? Mesenteric thrombus - taken emergently for ex-lap on 01/04 - s/p second ex lap and small bowel resection 01/07 - continue cefepime + metronidazole for 7 day course #nutrition - start trickle feeds today 10 ml/hr - consult REGISTERED DIETICIAN ?? Renal/FEK: #AGMA/Lactic Acidosis -likely 2/2 septic shock/ #Hyperkalemia- resolved -Trend BMPs -Replete electrolytes ?? Hematology: - no active issues ?? ID: #Septic Shock - cefepime + metronidazole - f/u bcx from 01/08 - f/u galactomanan ?? Endocrine: #Hx sarcoidosis #Hyperglycemia Insulin gtt ? DVT Prophylaxis: heparin GI prophylaxis: pepcid Code Status: Full code per ER team's discussion with patient prior to intubation DPOA: SisterMona CODE STATUS: Full Code Rose Schreiber MD, PGY-1 Team Pager [phone] Critical Care Medicine - Blue Team 01/09/2019 Associated attestation - Sarabjit Castelan MD - 01/09/2019 4:33 PM EDT MICU ATTENDING ATTESTATION NOTE The patient was seen in conjunction with Dr. Schreiber, the resident physician and the MICU Blue team. I have independently performed the lindo portions of the history and physical exam. I have reviewed the nursing notes, vital signs, and all diagnostic studies personally including labs, imaging studies and EKGs. I have discussed the details of the case with the resident and agree with the assessment and plan as described in the resident note above unless noted otherwise below. Tolerated extubation quite well over the last 24 hours. Patient accidentally got doses of Lasix overnight. Patient is a lot more awake but mildly delirious this morning on exam and has a benign abdominal exam. She will encourage the patient to be out of bed into a chair today, can set a 7 day and datefor IV antibiotics, transition IV from home infusion to enteral long-acting opiates and okay to transition patient out of the ICU to hospital medicine. IS PATIENT CRITICALLY ILL ? Is there a high potential of sudden, clinically significant, or life threatening deterioration? Yes Is there a need for direct personal assessment and management to treat/prevent multiple vital organfailure/deterioration? Yes If this patient is not critically ill, I certify the patient requires continued in-patient hospitalization for [] PATIENT IS CRITICALLY ILL WITH THESE DIAGNOSES BEING MANAGED BY [facility] TEAM: Delirium Acute Other intra-abdominal infection Respiratory Failure Acute with hypoxia I personally performed 30 minutes of aggregate critical care time exclusive of procedures and teaching. This includes time spent during direct patient evaluation and reassessment, interpreting diagnostic tests, directing life and/or organ supporting interventions and documentation on the unit. MD Anthony Rich Richard, RCP - 01/09/2019 12:21 AM EDT Pt's home titrating CPAP (6cm-16cm) r/a Set up at bedside. Pt used for 15 minutes then refused . States she has to spit a lot and doesn't want that on her face. Doing well on r/a. Sat 96-98%. nsg tomonitor sats overnight. Mayela Arriaga RN - 01/08/2019 5:18 PM EDT Office of Care Management Progress Note Ms. Pacheco was discussed in IDR; chart review by RNSOULEYMANE. In brief, she was admitted on 01/04/19 from OSH with shock of unknown etiology. On 01/05/19, she had negative ex-lap with s/p closure with resection of chronically dilated small bowel on 01/07/19. Febrile (39.4) earlier this AM; re-cultured (urine, CXR, blood). Abdominal binder needed at all times when OOB to decrease hernia recurrence rate since no mesh was used during closure (per MD Jaxson Ramos General Surgery Progress Noted dated 01/08/2019 ) She was successfully extubated today with strong cough. Her mental status is improving. Advance Directive conversation is planned once Makenna is able to participate in this discussion. CM will continue to monitor patient's progress with the medical plan of care and to provide support to her/family during care transition. BENNY Spears Pager: [phone] Dave Dennis RCP - 01/08/2019 1:56 PM EDT Patient extubated to 4 lnc. No distress noted. Patient has strong cough. Will continue to monitor Assessment / Events / Plan of the Day: Dave Dennis RCP Jaxson Ramos MD - 01/08/2019 8:59 AM EDT Surgery Inpatient Progress Note ID: Blossom Pacheco??is a 58 y.o.??female??with shock of unknown etiology. Underwent negative ex-lap on 01/05/19, left with open abdomen, now POD#1 s/p closure with resection of ~80cm of chronically dilated small bowel on 01/07/19. 24hr events: - Taken to OR yesterday for exploration and primary closure, remains intubated post-operatively - Overnight had increased fevers overnight, Tmax of 39.4 at 0200 - Remains on VC ventilation, no SBT this AM - Continues on insulin gtt Subjective: Intubated and sedated O: Last value Range last 24hrs Temperature Temp: (!) 38.9 ??C (102 ??F) Temp: [38 ??C (100.4 ??F)-39.4 ??C (102.9 ??F)] Heart Rate Heart Rate: 60 Heart Rate: [60-110] Blood Pressure BP: 117/44 BP: (97-118)/(44-77) Respiratory Rate Resp: 19 Resp: [17-21] SpO2 SpO2: 97 % SpO2: [93 %-100 %] ventilated 01/07 0701 - 01/08 0700 In: 2262 [P.O.:21; I.V.:2060] Out: 1700 [Urine:1415] BIANCA: 35 mL; N Physical Exam: General: intubated and sedated HEENT: PERRL, no scleral icterus CVS: Regular rate and rhythm Pulm: course sounds bilaterally Abd: soft, appropriately tender, dressing c/d/i, BIANCA with serosanguinous drainage : zheng in place with light yellow urine Skin: warm, dry Ext: no cyanosis Neuro: non-focal, moving all four extremities spontaneously Labs: Recent Labs 01/08/19 0145 01/07/19 0840 01/07/19 0415 01/06/19 1255 01/06/19 0420 WBC 12.0* 11.0* 10.4* 11.6* 14.6* HGB 11.0* 10.4* 10.2* 10.9* 11.5* HCT 34.7* 32.6* 32.5* 34.4* 35.5* PLATELET 169 155 154 150 162 Recent Labs 01/08/19 0145 01/07/19 1325 01/07/19 0840 01/07/19 0415 01/06/19 1255 01/06/19 0420 01/05/19 1615 NA 144 141 144 143 144 143 136 K 3.5 3.6 3.9 3.6 3.9 3.6 4.7 CL 113* 113* 111* 110* 108* 111* 108* CO2 20* 20* 21* 22 21* 22 21* BUN 28* 22* 24* 24* 18 17 16 CREATININE 0.92 0.76 0.83 0.84 0.70 0.78 0.86 GLUCOSE 214* 152 202* 216* 269* 155 194 CALCIUM 9.4 9.4 9.8 9.8 9.7 9.8 10.1 MAGNESIUM -- 0.91 -- 0.77 0.79 0.69 1.25* PHOS 3.4 2.6 -- 3.2 2.5 2.5 1.4* Impression/Recommendations: Blossom Pacheco??is a 58 y.o.??female??with shock of unknown etiology, who underwent negative ex-lap on 01/05/19, left with open abdomen, now POD#1 s/p resection of ~80cm of chronically dilated smallbowel and primary closure on 01/07/19. She continues to have worsening fevers of unclear etiology, however, it does not appear to be an intraabdominal source. Would recommend wetzel-culturing with UA, repeat CXR, and blood cultures. - NPO, NG to suction - recommend maintaining NG to suction after extubation awaiting return of bowelfunction. - Monitor UOP and give fluids as needed, recommend avoiding lasix in immediate post-operative setting. Labs suggest that patient is hemo-concentrated this morning. - Wetzel culture given fevers - UA, CXR, blood cultures - Abdominal binder when OOB at all times to decrease hernia recurrence rate as fascia closed primarily without mesh. - Further care as per primary team/ICU - Will continue to follow. Please page [phone] during the day or [phone] in the evenings for questions. Jaxson Ramos MD Rose Schreiber MD - 01/08/2019 6:58 AM EDT Critical Care Medicine - ICU Progress Note ID: Blossom Pacheco is a 58 y.o. 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 24 Hour/Subjective: - patient had ex lap with biopsy and small bowel resection yesterday evening, remained intubated post op - was febrile overnight with tmax 39.4 with no hemodynamic instabilities Objective: Vitals: Last value Range last 24hrs Temperature Temp: (!) 38.9 ??C (102 ??F) Temp: [37.9 ??C (100.2 ??F)-39.4 ??C (102.9 ??F)] Heart Rate Heart Rate: 60 Heart Rate: [60-110] Blood Pressure BP: 117/44 BP: (97-118)/(44-77) Respiratory Rate Resp: 20 Resp: [17-21] SpO2 SpO2: 97 % SpO2: [93 %-100 %] BMI Body mass index is 47.99 kg/m??. Oxygen Therapy O2 Device: Ventilator FiO2 (%): 30 % Art pH/pCO2/pO2/HCO3: 7.45/29/128/19.5 (01/05 1626) In/Out's: Intake/Output Summary (Last 24 hours) at 01/08/2019 0658 Last data filed at 01/08/2019 0600 Gross per 24 hour Intake 2262 ml Output 1700 ml Net 562 ml Admit wt: 138.3 kg MEDICATIONS: ??? famotidine 40 mg Oral Daily ??? heparin (Porcine) 5,000 Units Subcutaneous Q8H BERT ??? acetaminophen 1,000 mg Oral Q8H BERT Or ??? acetaminophen 1,000 mg Oral Q8H BERT Or ??? acetaminophen 975 mg Rectal Q8H BERT ??? shift total and Settings verification 1 each Intravenous 2 Times Daily - Shift Total ??? insulin regular human 0.5-16 Units/hr Intravenous Change bag every evening ??? ceFEPime 2 g Intravenous Q8H ??? metroNIDAZOLE 500 mg Intravenous Q8H Glucose 40% oral gel OR dextrose, insulin regular human, Assess AND [] fentaNYL AND fentaNYL AND fentaNYL AND shift total and Settings verification ??? dexmedetomidine 1 mcg/kg/hr (01/08/19625) ??? fentaNYL 50 mcg/hr (01/08/19599) ??? propofol 20 mcg/kg/min (01/08/19599) Physical Exam: Gen: NAD, lying in bed intubated ETT in place, RAAS -3 HEENT: Oropharynx clear, moist mucus membranes, CV: Normal rate, regular rhythm, No murmurs/rubs/gallops Pulm: intubated no rales/rhonchi/wheezes, Abd: Non-distended, normal bowel sounds in all 4 quadrants, soft, non-tender, wound vac in place over surgical site with increase blood over surgical site Ext: No pedal edema, 2+ radial/DP pulses Skin: Warm, dry, no rashes Lymph: No cervical/supraclav/axillary/inguinal nodes Neuro: CN 2-12 intact, strength 5/5 in UE and LE b/l, no sensory deficits noted Labs: Last 3 wbc, hgb, hct plt Recent Labs 01/08/19 0145 01/07/19 0840 01/07/19 0415 WBC 12.0* 11.0* 10.4* HGB 11.0* 10.4* 10.2* HCT 34.7* 32.6* 32.5* PLATELET 169 155 154 Last 3 Lytes Recent Labs 01/08/19 0145 01/07/19 1325 01/07/19 0840 NA 144 141 144 K 3.5 3.6 3.9 CL 113* 113* 111* CO2 20* 20* 21* BUN 28* 22* 24* CREATININE 0.92 0.76 0.83 Last 3 LFTs Recent Labs 01/04/19 2125 07/22/18 1803 07/09/18 1950 AST 37* 31* 32* ALT 30 20 25 ALKPHOS 129* 77 73 BILITOT 1.1 0.8 1.2 BILIDIR 0.3 0.2 0.3 Last Ca, Mg, Phos Recent Labs 01/08/19 0145 01/07/19 1325 CALCIUM 9.4 9.4 PHOS -- 2.6 Last 3 Coags Recent Labs 01/04/19 2125 PT 12.2 INR 1.1 PTT 26 Last 3 ProBNP, Trop, CK Recent Labs 01/05/19 1615 01/05/19 1000 01/05/19 0430 TROPONINT 0.25* 0.30* 0.32* Microbiology: Microbiology Results (Last 30 days) Procedure Component Value Units Date/Time Urine culture [[id number]] Collected: 01/05/19 1035 Lab Status: Final result Specimen: Indwelling Catheter Urine Updated: 01/06/19 0739 Urine Culture No growth (Less than 1,000 cfu/ml). Blood culture [[id number]] Collected: 01/05/19 0130 Lab Status: Preliminary result Specimen: Blood Updated: 01/07/19 0702 Blood Culture No growth at 2 days. Interval Studies/Imaging CT abdomen angio: Large ventral abdominal wall defect with open abdominal wound with evidence of ischemia within the herniated loops of small bowel within and abutting abdominal wall. CT Chest: 1. Trace right and small left pleural effusions. Subtotal atelectasis of the lower lobes. 2. Additional perihilar and dependent left upper lobe consolidative opacities concerning for aspiration pneumonitis. Assessment: Blossom Pacheco is a 58 y.o. female with a PMH significant for nephrolithiasis c/b obstruction and sepsis s/p b/l PCNL, sarcoidosis w lung and skin involvement on prednisone, primary hyperparathyroidism, COPD, MOSES on CPAP, DM, And ventral hernia presenting in transfer form [facility] with acute hypoxic res piratory failure and shock. Makenna continues to be febrile despite broad coverage antibiotics. The only organisms not currently be covered are ESBL organisms or MRSA. We will repeat blood cultures which in theory will grow organisms if she has infection.We will also check for possible fungal source. Her high recorded fevers are not consistent with post op fevers. She does have a history of sarcoidosis but autoimmune fevers are usually lower in grade. She continues to be stable and we will attempt to extubate today. Hopefully when patient is more awake, she may be able to localize pain which can help give us a possible source. Neuro: - weaning off sedation today - c/w fentanyl 50 mcg/hr ?? Pulm: #Hypoxic respiratory failure - extubation today ?? CV: #Shock, likely mixed 2/2 distributive/cardiogenic - all pressors weaned off on 01/05 -Antimicrobials as below -Cardiology consulted appreciate recs ?? #Afib/flutter - Will start anticoagulation post-op - Telemetry - S/p amiodarone in ED ?? GI: #Incarcerated abdominal hernia/ ? Mesenteric thrombus - taken emergently for ex-lap on 01/04 - s/p second ex lap and small bowel resection 01/07 - continue cefepime + metronidazole - f/u lipase and amylase ?? Renal/FEK: #AGMA/Lactic Acidosis -likely 2/2 septic shock/ #Hyperkalemia- resolved -Trend BMPs -Replete electrolytes ?? Hematology: - no active issues ?? ID: #Septic Shock - cefepime + metronidazole - f/u bcx from 01/08 - f/u galactomanan ?? Endocrine: #Hx sarcoidosis #Hyperglycemia Insulin gtt ? DVT Prophylaxis: heparin GI prophylaxis: pepcid Code Status: Full code per ER team's discussion with patient prior to intubation DPOA: SisterMona CODE STATUS: Full Code Rose Lynnette MD Candie, PGY-1 Team Pager [phone] Critical Care Medicine - Blue Team 01/08/2019 Associated attestation - Sarabjit Castelan MD - 01/08/2019 4:56 PM EDT MICU ATTENDING ATTESTATION NOTE The patient was seen in conjunction with Dr. Schreiber, the resident physician and the MICU Blue team. I have independently performed the lindo portions of the history and physical exam. I have reviewed the nursing notes, vital signs, and all diagnostic studies personally including labs, imaging studies and EKGs. I have discussed the details of the case with the resident and agree with the assessment and plan as described in the resident note above unless noted otherwise below. Passed SBT overnight and improved mental status upon holding sedation on rounds. Placed NG tube, abdominal binder and have extubate the patient. Will discuss further with ID if the patient needs to have Abx broadened any further persistent high fevers and history of resistant pathogens in the past. I do think that the peak temperature is a little higher than just post surgical inflammation. If she maintains this degree of hyperpyrexia by tmrw, then will need to add drug fever on the differential IS PATIENT CRITICALLY ILL ? Is there a high potential of sudden, clinically significant, or life threatening deterioration? Yes Is there a need for direct personal assessment and management to treat/prevent multiple vital organfailure/deterioration? Yes If this patient is not critically ill, I certify the patient requires continued in-patient hospitalization for [] PATIENT IS CRITICALLY ILL WITH THESE DIAGNOSES BEING MANAGED BY [facility] TEAM: Delirium Acute Intubated for airway protection secondary to resp failure Other ischemic bowel Respiratory Failure Acute with hypoxia I personally performed 30 minutes of aggregate critical care time exclusive of procedures and teaching. This includes time spent during direct patient evaluation and reassessment, interpreting diagnostic tests, directing life and/or organ supporting interventions and documentation on the unit. MD Narinder Rich Genesis J, RCP - 01/08/2019 1:57 AM EDT AMV Protocol: Yes SBT Protocol: Yes Vent Settings: Servo I Ventilator Mode: VC Tidal Volume Set: 490 Resp Rate Set: 18 PEEP Set: 5 FiO2: 30 % Ventilator Measurements: Resp: 19 Vt Exhaled: 520 PIP: 24 MAP: 9.9 Plateau Press: 19 Ve: 9.4 PEEP: 11 cmH20 SpO2: 96 % EtCO2:32 mmHg Airway: 7.5 @ 23 cm at the Teeth. Skin Integrity: WDL Breath Sounds: Rhonchi Secretions: Scant white thick secretions Assessment / Events / Plan of the Day: Pt received on Volume control settings as noted. Pt status post OR and will rest overnight on VC. Pt stable during my shift - ambu bag at bedside, airway patent, clean, and secure. Will attempt SBT trial in the am if appropriate based on RASS score and readiness.Will document result in the flow sheet. Natalie Barcenas RCP IDYT val Joya Rn, Charmaine Ray RN - 01/08/2019 1:49 AM EDT No sxs of infiltrate w/30 cc flush. Catheter visible in vessel using ultrasound. Karen Patterson RCP - 01/07/2019 7:35 PM EDT Summary has Cardiomyopathy; Type 2 diabetes mellitus, without long-term current use of insulin; History of herpes simplex infection; LBBB (left bundle branch block); Morbid obesity with BMI of 50.0-59.9, adult; Sarcoidosis; Nephrolithiasis; Ventral hernia; HTN (hypertension); Gastroesophageal reflux; PTSD (post- traumatic stress disorder); COPD (chronic obstructive pulmonary disease); Asthma; Anxiety; Depression; Former smoker; Chronic prescription opiate use; Renal calculus, left; and Shock on their problemlist. Respiratory Data AMV Protocol: Yes SBT Protocol: Yes SBT: Not performed/Excluded: PEEP greater than 10 cmH2O Current Vent Settings: Servo I Ventilator Mode: VC Tidal Volume Set: 490 Resp Rate Set: 18 PEEP Set:5 FiO2: 30 % Ventilator Measurements: Resp: 18 Vt Exhaled: 520 PIP: 24 MAP: 9.9 Plateau Press: 19 Ve: 9.4 PEEP: 11 cmH20 SpO2: 96 % EtCO2:32 mmHg Events Patient placed on VCV this morning for increased sedation needs due to pending OR trip. Patient went to OR for abdominal resection and abdomen closure and did did have some increasing FIo2 needs in theOR. Pt required deep suctioning, producing thick , tenacious secretions and required Versed. Pt received Fetanyl bolus as leaving the Or. Due to paralytic administration and sedation, patient may need to remain in VCV overnight but may trial on psv later in noc. Pt replaced on Heated wire immediately upon returning to unit. Will continue to monitor Ted Rajan MD - 01/07/2019 10:56 AM EDT Surgery Inpatient Progress Note ID: Blossom Pacheco??is a 58 y.o.??female??with shock of unknown etiology. POD 1 sp negative exlap with open abdomen/abtherea in place. 24hr events: ?? Off pressors ?? HD stable ?? WBC trending down ?? CT scan yesterday with ? pneumatosis Subjective: Intubated and sedated O: Last value Range last 24hrs Temperature Temp: (!) 38 ??C (100.4 ??F) Temp: [37.6 ??C (99.7 ??F)-38.1 ??C (100.6 ??F)] Heart Rate Heart Rate: 61 Heart Rate: [61-101] Blood Pressure BP: 118/57 BP: (87-133)/(47-76) Respiratory Rate Resp: 20 Resp: [14-45] SpO2 SpO2: 99 % SpO2: [94 %-100 %] 01/06 0701 - 01/07 0700 In: 1812.6 [I.V.:1492.6] Out: 1515 [Urine:1515] Physical Exam: General: intubated and sedated HEENT: PERRL, anicteric sclerae CVS: RRR Pulm: course sounds b/l Abd: soft, non-tender, abthera in place with serosang drainage : zheng in place Skin: warm, dry Ext: no edema Neuro: non-focal, moving all four extremities spontaneously Labs: Recent Labs 01/07/19 0840 01/07/19 0415 01/06/19 1255 01/06/19 0420 01/05/19 1710 01/04/19 2125 WBC 11.0* 10.4* 11.6* 14.6* 14.0* < > 37.0* HGB 10.4* 10.2* 10.9* 11.5* 11.8 < > 14.6 HCT 32.6* 32.5* 34.4* 35.5* 36.1 < > 44.2 PLATELET 155 154 150 162 174 < > 463* PT -- -- -- -- -- -- 12.2 INR -- -- -- -- -- -- 1.1 PTT -- -- -- -- -- -- 26 < > = values in this interval not displayed. Recent Labs 01/07/19 0840 01/07/19 0415 01/06/19 1255 01/06/19 0420 01/05/19 1615 01/05/19 1000 NA 144 143 144 143 136 139 K 3.9 3.6 3.9 3.6 4.7 4.4 CL 111* 110* 108* 111* 108* 110* CO2 21* 22 21* 22 21* 21* BUN 24* 24* 18 17 16 14 CREATININE 0.83 0.84 0.70 0.78 0.86 0.89 GLUCOSE 202* 216* 269* 155 194 144 CALCIUM 9.8 9.8 9.7 9.8 10.1 10.4 MAGNESIUM -- 0.77 0.79 0.69 1.25* 0.68* PHOS -- 3.2 2.5 2.5 1.4* 0.9* A/P: Blossom Pacheco??is a 58 y.o.??female??with shock of unknown etiology. POD 2 sp negative exlap with open abdomen/abtherea in place. Off pressors, HD stable, although ? Pneumatosis on CT scan yesterday. Will plan to explore this afternoon. Booked and cosnented Ted Rajan MD Rose Schreiber MD - 01/07/2019 7:09 AM EDT Critical Care Medicine - ICU Progress Note ID: Blossom Pacheco is a 58 y.o. 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 24 Hour/Subjective: - patient continues to have recorded fevers with tmax 38.1 - patient planned for surgery today at 3 pm for abdominal closure; CT angio read this morning with concern for bowel wall ischemia vs stool. Spoke with surgery this morning who will look over CT scan and decide if surgery needs to be performed more emergently Objective: Vitals: Last value Range last 24hrs Temperature Temp: 37.6 ??C (99.7 ??F) Temp: [37.3 ??C (99.1 ??F)-38.1 ??C (100.6 ??F)] Heart Rate Heart Rate: 67 Heart Rate: [62-101] Blood Pressure BP: 116/62 BP: (87-133)/(53-76) Respiratory Rate Resp: 17 Resp: [12-45] SpO2 SpO2: 98 % SpO2: [94 %-100 %] BMI Body mass index is 47.85 kg/m??. Oxygen Therapy O2 Device: Ventilator FiO2 (%): 30 % Art pH/pCO2/pO2/HCO3: 7.45/29/128/19.5 (01/05 1626) In/Out's: Intake/Output Summary (Last 24 hours) at 01/07/2019 0901 Last data filed at 01/07/2019 0600 Gross per 24 hour Intake 1747.62 ml Output 1435 ml Net 312.62 ml Admit wt: 138.3 kg MEDICATIONS: ??? magnesium sulfate 2 g Intravenous Once ??? famotidine 40 mg Oral Daily ??? heparin (Porcine) 5,000 Units Subcutaneous Q8H BERT ??? acetaminophen 1,000 mg Oral Q8H BERT Or ??? acetaminophen 1,000 mg Oral Q8H BERT Or ??? acetaminophen 975 mg Rectal Q8H BERT ??? shift total and Settings verification 1 each Intravenous 2 Times Daily - Shift Total ??? insulin regular human 0.5-16 Units/hr Intravenous Change bag every evening ??? ceFEPime 2 g Intravenous Q8H ??? metroNIDAZOLE 500 mg Intravenous Q8H Glucose 40% oral gel OR dextrose, insulin regular human, Assess AND [] fentaNYL AND fentaNYL AND fentaNYL AND shift total and Settings verification, HYDROmorphone ??? dexmedetomidine 0.8 mcg/kg/hr (01/07/19 0830) ??? fentaNYL 50 mcg/hr (01/07/19 0600) ??? propofol 20 mcg/kg/min (01/07/19 0615) Physical Exam: Gen: NAD, lying in bed intubated ETT in place, RAAS -3 HEENT: Oropharynx clear, moist mucus membranes, CV: Normal rate, regular rhythm, No murmurs/rubs/gallops Pulm: intubated no rales/rhonchi/wheezes, Abd: Non-distended, normal bowel sounds in all 4 quadrants, soft, non-tender, wound vac in place over surgical site with increase blood over surgical site Ext: No pedal edema, 2+ radial/DP pulses Skin: Warm, dry, no rashes Lymph: No cervical/supraclav/axillary/inguinal nodes Neuro: CN 2-12 intact, strength 5/5 in UE and LE b/l, no sensory deficits noted Labs: Last 3 wbc, hgb, hct plt Recent Labs 01/07/19 0415 01/06/19 1255 01/06/19 0420 WBC 10.4* 11.6* 14.6* HGB 10.2* 10.9* 11.5* HCT 32.5* 34.4* 35.5* PLATELET 154 150 162 Last 3 Lytes Recent Labs 01/07/19 0415 01/06/19 1255 01/06/19 0420 NA 143 144 143 K 3.6 3.9 3.6 CL 110* 108* 111* CO2 22 21* 22 BUN 24* 18 17 CREATININE 0.84 0.70 0.78 Last 3 LFTs Recent Labs 01/04/195 07/22/18 1803 07/09/18 1950 AST 37* 31* 32* ALT 30 20 25 ALKPHOS 129* 77 73 BILITOT 1.1 0.8 1.2 BILIDIR 0.3 0.2 0.3 Last Ca, Mg, Phos Recent Labs 01/07/19 0415 CALCIUM 9.8 PHOS 3.2 Last 3 Coags Recent Labs 01/04/192124 PT 12.2 INR 1.1 PTT 26 Last 3 ProBNP, Trop, CK Recent Labs 01/05/19 1615 01/05/19 1000 01/05/19 0430 TROPONINT 0.25* 0.30* 0.32* Microbiology: Microbiology Results (Last 30 days) Procedure Component Value Units Date/Time Urine culture [[id number]] Collected: 01/05/19 1035 Lab Status: Final result Specimen: Indwelling Catheter Urine Updated: 01/06/19 0739 Urine Culture No growth (Less than 1,000 cfu/ml). Blood culture [[id number]] Collected: 01/05/19 0130 Lab Status: Preliminary result Specimen: Blood Updated: 01/07/19 07 Blood Culture No growth at 2 days. Interval Studies/Imaging CT abdomen angio: Large ventral abdominal wall defect with open abdominal wound with evidence of ischemia within the herniated loops of small bowel within and abutting abdominal wall. CT Chest: 1. Trace right and small left pleural effusions. Subtotal atelectasis of the lower lobes. 2. Additional perihilar and dependent left upper lobe consolidative opacities concerning for aspiration pneumonitis. Assessment: Blossom Pacheco is a 58 y.o. 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 Makenna's CT abd is concerning for bowel ischemia although her clinical presentation at this time doesnot appear consistent with bowel ischemia And her lactate is wnl. She is still scheduled for OR today with attempt to extubate after surgery. Neuro: Sedated- proprofol + precedex; tried to wean off propofol this morning but became agitated ?? Pulm: #Hypoxic respiratory failure Intubated, will extubate after procedure today Trend ABGs ?? CV: #Shock, likely mixed 2/2 distributive/cardiogenic - all pressors weaned off on 01/05 -Antimicrobials as below -Cardiology consulted appreciate recs ?? #Afib/flutter - Will start anticoagulation post-op - Telemetry - S/p amiodarone in ED ?? GI: #Incarcerated abdominal hernia/ ? Mesenteric thrombus - taken emergently for ex-lap on 01/04 - surgery for closure today and bowel investigation - continue cefepime + metronidazole ?? Renal/FEK: #AGMA/Lactic Acidosis -likely 2/2 septic shock/ #Hyperkalemia- resolved -Trend BMPs -Replete electrolytes - received 2 g Mg today -Telemetry ?? Hematology: - no active issues ?? ID: #Septic Shock - cefepime + metronidazole ?? Endocrine: #Hx sarcoidosis #Hyperglycemia Insulin gtt ? DVT Prophylaxis: heparin GI prophylaxis: pepcid Code Status: Full code per ER team's discussion with patient prior to intubation DPOA: SisterMona CODE STATUS: Full Code Rose Schreiber MD, PGY-1 Team Pager [phone] Critical Care Medicine - Buck Team 01/07/2019 Associated attestation - Sarabjit Castelan MD - 01/07/2019 12:41 PM EDT MICU ATTENDING ATTESTATION NOTE The patient was seen in conjunction with Dr. Schreiber, the resident physician and the MICU Blue team. I have independently performed the lindo portions of the history and physical exam. I have reviewed the nursing notes, vital signs, and all diagnostic studies personally including labs, imaging studies and EKGs. I have discussed the details of the case with the resident and agree with the assessment and plan as described in the resident note above unless noted otherwise below. Patient markedly improved from a hemodynamic perspective and remains stable from a respiratory perspective. White count is downtrending and so his fever curve. Wetzel scan yesterday shows repeat concern for ischemic gut, pneumatosis. This was discussed with surgery and will plan for repeat exploratory laparotomy. If there is no pneumatosis may need a bowel resection. We will keep intubated until then. Matteo not think the evidence of pneumonitis on her chest CT is contributory to her severity of medical illness. It is equally unclear to me as to why the patient would have recurrent bout of pneumatosis or ischemia given no further episode of hypotension, atrial fibrillation since exploration in the operating room 2 days ago. IS PATIENT CRITICALLY ILL ? Is there a high potential of sudden, clinically significant, or life threatening deterioration? Yes Is there a need for direct personal assessment and management to treat/prevent multiple vital organfailure/deterioration? Yes If this patient is not critically ill, I certify the patient requires continued in-patient hospitalization for [] PATIENT IS CRITICALLY ILL WITH THESE DIAGNOSES BEING MANAGED BY [facility] TEAM: Encephalopathy Acute Intubated for airway protection secondary to respiratory failure Other ischemic bowel Pneumonia Aspiration Sepsis Unspecified I personally performed 40 minutes of aggregate critical care time exclusive of procedures and teaching. This includes time spent during direct patient evaluation and reassessment, interpreting diagnostic tests, directing life and/or organ supporting interventions and documentation on the unit. MD Narinder Rich Genesis J, RCP - 01/07/2019 1:33 AM EDT AMV Protocol: Yes SBT Protocol: Yes Vent Settings: Servo I Ventilator Mode: PS/CPAP PEEP Set: 5 FiO2: 30 % PSV: 9 Ventilator Measurements: Resp: 22 Vt Spontaneous: 417 Ve: 8.4 SpO2: 98 % EtCO2: 33 mmHg Airway: 7.5 @ 23 cm at the Teeth. Skin Integrity: WDL Breath Sounds: Clear and diminished Secretions: Small white thick via ETT inline suctioning Assessment / Events / Plan of the Day: Pt received on PSV settings noted above. ETT secure and patent - tube position moved side to side to prevent breakdown and redness. Ambu bag at bedside. Pt stableand tolerating PSV well. Will perform SBT this morning and document result in flowsheet. Natalie Barcenas RCP Karen Patterson RCP - 01/06/2019 2:09 PM EDT Summary has Cardiomyopathy; Type 2 diabetes mellitus, without long-term current use of insulin; History of herpes simplex infection; LBBB (left bundle branch block); Morbid obesity with BMI of 50.0-59.9, adult; Sarcoidosis; Nephrolithiasis; Ventral hernia; HTN (hypertension); Gastroesophageal reflux; PTSD (post- traumatic stress disorder); COPD (chronic obstructive pulmonary disease); Asthma; Anxiety; Depression; Former smoker; Chronic prescription opiate use; Renal calculus, left; and Shock on their problemlist. Respiratory Data AMV Protocol: Yes SBT Protocol: Yes SBT: Not performed/Excluded: PEEP greater than 10 cmH2O Vent Settings: Servo I Ventilator Mode: PS/CPAP Tidal Volume Set: 490 Resp Rate Set: 16 PEEP Set: 5 FiO2: 30 % Ventilator Measurements: Resp: 14 Vt Exhaled: 562 PIP: 15 MAP: 7.3 Plateau Press: 20 Ve: 7.2 PEEP: 11 cmH20 SpO2: 98 % EtCO2:41 mmHg Airway: 7.5 @ 23 cm at the Teeth. Skin Integrity: WDL Events Patient on PSV on above stated settings for duration of day, tolerating well. Team discussed possible extubation today however decided to have a CT Scan of Chest done prior to extubation. Patient transported to CT Scan without incident. See note. Plan to possibly extubate in morning. ETAD changed without incident. Will continue to monitor. Ted Rajan MD - 01/06/2019 12:56 PM EDT Surgery Inpatient Progress Note ID: Blossom Pacheco??is a 58 y.o.??female??with shock of unknown etiology. POD 1 sp negative exlap with open abdomen/abtherea in place. 24hr events: ?? Off pressors ?? HD stble Subjective: Intubated and sedated O: Last value Range last 24hrs Temperature Temp: 37.3 ??C (99.1 ??F) Temp: [37.3 ??C (99.1 ??F)-38.8 ??C (101.8 ??F)] Heart Rate Heart Rate: 91 Heart Rate: [89-114] Blood Pressure BP: 123/64 BP: (94-141)/(59-71) Respiratory Rate Resp: 14 Resp: [12-41] SpO2 SpO2: 98 % SpO2: [95 %-100 %] 01/05 0701 - 01/06 0700 In: 2428.7 [I.V.:1788.7] Out: 3505 [Urine:2255] Physical Exam: General: intubated and sedated HEENT: PERRL, anicteric sclerae CVS: RRR Pulm: course sounds b/l Abd: soft, non-tender, abthera in place with serosang drainage : zheng in place Skin: warm, dry Ext: no edema Neuro: non-focal, moving all four extremities spontaneously Labs: Recent Labs 01/06/19 0420 01/05/19 1710 01/05/19 1000 01/04/19 2125 WBC 14.6* 14.0* 19.3* 37.0* HGB 11.5* 11.8 12.6 14.6 HCT 35.5* 36.1 39.3 44.2 PLATELET 162 174 243 463* PT -- -- -- 12.2 INR -- -- -- 1.1 PTT -- -- -- 26 Recent Labs 01/06/19 0420 01/05/19 1615 01/05/19 1000 01/04/19 2125 NA 143 136 139 132* K 3.6 4.7 4.4 6.3* CL 111* 108* 110* 100 CO2 22 21* 21* 16* BUN 17 16 14 14 CREATININE 0.78 0.86 0.89 0.75 GLUCOSE 155 194 144 453* CALCIUM 9.8 10.1 10.4 10.5 MAGNESIUM 0.69 1.25* 0.68* 0.66* PHOS 2.5 1.4* 0.9* 3.2 A/P: Blossom Pacheco??is a 58 y.o.??female??with shock of unknown etiology. POD sp negative exlap withopen abdomen/abtherea in place. Off pressors, HD stable, plan for abdominal closure tomorrow. Bookedand consented. Ted Rajan MD Rose Schreiber MD - 01/06/2019 6:59 AM EDT Critical Care Medicine - ICU Progress Note ID: Blossom Pacheco is a 58 y.o. 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 24 Hour/Subjective: - Yesterday was weaned off pressors and remained stable - UOP was steadily decreasing yesterday and was given lasix 60 mg, goal of net even is - 1,076.2 ml - vent settings were switch to pressure support whichc she is tolerating well Objective: Vitals: Last value Range last 24hrs Temperature Temp: 37.9 ??C (100.2 ??F) Temp: [37.9 ??C (100.2 ??F)-39.1 ??C (102.4 ??F)] Heart Rate Heart Rate: 94 Heart Rate: [89-114] Blood Pressure BP: 107/61 BP: (94-141)/(60-72) Respiratory Rate Resp: 14 Resp: [13-41] SpO2 SpO2: 99 % SpO2: [95 %-100 %] BMI Body mass index is 47.85 kg/m??. Oxygen Therapy O2 Device: Ventilator FiO2 (%): 30 % Art pH/pCO2/pO2/HCO3: 7.45/29/128/19.5 (01/05 1626) In/Out's: Intake/Output Summary (Last 24 hours) at 01/06/2019 1020 Last data filed at 01/06/2019 0600 Gross per 24 hour Intake 1590.72 ml Output 3105 ml Net -1514.28 ml Admit wt: 138.3 kg MEDICATIONS: ??? famotidine 40 mg Oral Daily ??? heparin (Porcine) 5,000 Units Subcutaneous Q8H BERT ??? acetaminophen 1,000 mg Oral Q8H BERT Or ??? acetaminophen 1,000 mg Oral Q8H BERT Or ??? acetaminophen 975 mg Rectal Q8H BERT ??? shift total and Settings verification 1 each Intravenous 2 Times Daily - Shift Total ??? midazolam (PF) 4 mg Intravenous Q4H ??? insulin regular human 0.5-16 Units/hr Intravenous Change bag every evening ??? potassium, sodium phosphates 3 g Per NG tube 4 Times Daily ??? ceFEPime 2 g Intravenous Q8H ??? metroNIDAZOLE 500 mg Intravenous Q8H Glucose 40% oral gel OR dextrose, insulin regular human, Assess AND [] fentaNYL AND fentaNYL AND fentaNYL AND shift total and Settings verification, HYDROmorphone ??? fentaNYL 50 mcg/hr (01/06/19 0600) ??? AMIOdarone ??? propofol 35 mcg/kg/min (01/06/19 0710) Physical Exam: Gen: NAD, lying in bed intubated ETT in place, RAAS -1 HEENT: Oropharynx clear, moist mucus membranes, CV: Normal rate, regular rhythm, No murmurs/rubs/gallops Pulm: intubated no rales/rhonchi/wheezes, Abd: Non-distended, normal bowel sounds in all 4 quadrants, soft, non-tender, wound vac in place over surgical site Ext: No pedal edema, 2+ radial/DP pulses Skin: Warm, dry, no rashes Lymph: No cervical/supraclav/axillary/inguinal nodes Neuro: CN 2-12 intact, strength 5/5 in UE and LE b/l, no sensory deficits noted Labs: Last 3 wbc, hgb, hct plt Recent Labs 01/06/19 0420 01/05/19 1710 01/05/19 1000 WBC 14.6* 14.0* 19.3* HGB 11.5* 11.8 12.6 HCT 35.5* 36.1 39.3 PLATELET 162 174 243 Last 3 Lytes Recent Labs 01/06/19 0420 01/05/19 1615 01/05/19 1000 NA 143 136 139 K 3.6 4.7 4.4 CL 111* 108* 110* CO2 22 21* 21* BUN 17 16 14 CREATININE 0.78 0.86 0.89 Last 3 LFTs Recent Labs 01/04/19 2125 07/22/18 1803 07/09/18 1950 AST 37* 31* 32* ALT 30 20 25 ALKPHOS 129* 77 73 BILITOT 1.1 0.8 1.2 BILIDIR 0.3 0.2 0.3 Last Ca, Mg, Phos Recent Labs 01/06/19 0420 CALCIUM 9.8 PHOS 2.5 Last 3 Coags Recent Labs 01/04/195 PT 12.2 INR 1.1 PTT 26 Last 3 ProBNP, Trop, CK Recent Labs 01/05/19 1615 01/05/19 1000 01/05/19 0430 TROPONINT 0.25* 0.30* 0.32* Microbiology: Microbiology Results (Last 30 days) Procedure Component Value Units Date/Time Urine culture [[id number]] Collected: 01/05/19 1035 Lab Status: Final result Specimen: Indwelling Catheter Urine Updated: 01/06/19 0739 Urine Culture No growth (Less than 1,000 cfu/ml). Blood culture [[id number]] Collected: 01/05/19 0130 Lab Status: Preliminary result Specimen: Blood Updated: 01/06/19 0701 Blood Culture No growth at 1 day. Interval Studies/Imaging CT abdomen angio: pending CT Chest: pending Assessment: Blossom Pacheco is a 58 y.o. female with a PMH significant for nephrolithiasis c/b obstruction and sepsis s/p b/l PCNL, sarcoidosis w lung and skin involvement on prednisone, primary hyperparathyroidism, COPD, MOSES on CPAP, DM, And ventral hernia presenting in transfer form [facility] with acute hypoxic res piratory failure and shock. Makenna continues to be febrile but is otherwise hemodynamically stable as of yesterday after being weaned off pressors. Prior CT scan at OSH did not show any evidence of nephrolithiasis but we wii obtain a u/s for better view. Initial presentation of her stressed induced cardiomyopathy may be due to a embolic source of bowel or mesenteric ischemia that was transient and resolved prior to ex lap. She may have a component of infection caused by either a urinary source or gut translocation. I spoke withthe surgery today who will proceed with closure and hernia repair tomorrow morning. Neuro: Sedated- wean proprofol and sedate with precedex ?? Pulm: #Hypoxic respiratory failure Intubated, will extubate after next procedure if unable to be extubated today due to mental status Trend ABGs ?? CV: #Shock, likely mixed 2/2 distributive/cardiogenic - all pressors weaned off yesterday (01/05) -Antimicrobials as below -Cardiology consulted appreciate recs ?? #Afib/flutter - Will start anticoagulation post-op - Telemetry - S/p amiodarone in ED ?? GI: #Incarcerated abdominal hernia/ ? Mesenteric thrombus - taken emergently for ex-lap on 01/04 - continue cefepime + metronidazole - f/u CT angiogram ?? Renal/FEK: #AGMA/Lactic Acidosis -likely 2/2 septic shock/ #Hyperkalemia- resolved -Trend BMPs -Replete electrolytes - neutraphos QID - received 2 g Mg today -Telemetry - f/u renal u/s ?? Hematology: - no active issues ?? ID: #Septic Shock - cefepime + metronidazole - F/u blood cultures - f/u CT chest ?? Endocrine: #Hx sarcoidosis #Hyperglycemia Insulin gtt ? DVT Prophylaxis: heparin GI prophylaxis: pepcid Code Status: Full code per ER team's discussion with patient prior to intubation DPOA: SisterMona CODE STATUS: Full Code Rose Schreiber MD, PGY-1 Team Pager [phone] Critical Care Medicine - Blue Team 01/06/2019 Associated attestation - Sarabjit Castelan MD - 01/06/2019 3:52 PM EDT MICU ATTENDING ATTESTATION NOTE The patient was seen in conjunction with Dr. Schreiber, the resident physician and the MICU Blue team. I have independently performed the lindo portions of the history and physical exam. I have reviewed the nursing notes, vital signs, and all diagnostic studies personally including labs, imaging studies and EKGs. I have discussed the details of the case with the resident and agree with the assessment and plan as described in the resident note above unless noted otherwise below. Assumed care on rounds this morning. In brief the patient is a 58-year-old female who has been admitted to the medical ICU for management of progressive respiratory failure, shock, lactic acidosis in the setting of a partial small bowel obstruction secondary to incarcerated hernia. Patient is status post exploratory laparotomy which did not find any ischemic or necrotic gut. Patient has a partially open abdomen with a wound VAC. This morning the patient remains off vasopressors, passing SBT, makes adequate urine and has a downtrending troponin. On physical exam the patient has no evidence of right or left-sided heart failure and has a soft nondistended abdomen. The patient was on significant dose of propofol and has been getting every 4 hr Versed throughout the night and was not awake enough to follow commands. Plan will be to maintain in negative fluid balance, change sedation regimen from propofol and Versed to Precedex. Prolonged SBT with a T-piece trial to assess existence of pulmonary edema given depressed EF. Plans to return to the operating room tomorrow with general surgery to close abdomen. IS PATIENT CRITICALLY ILL ? Is there a high potential of sudden, clinically significant, or life threatening deterioration? Yes Is there a need for direct personal assessment and management to treat/prevent multiple vital organfailure/deterioration? Yes If this patient is not critically ill, I certify the patient requires continued in-patient hospitalization for [] PATIENT IS CRITICALLY ILL WITH THESE DIAGNOSES BEING MANAGED BY CCS TEAM: Hypotension Arterial Intubated for airway protection secondary to respiratory failure Other mesenteric ischemia Respiratory Failure Acute with hypoxia Shock Hypovolemic/Hemorrhagic I personally performed 30 minutes of aggregate critical care time exclusive of procedures and teaching. This includes time spent during direct patient evaluation and reassessment, interpreting diagnostic tests, directing life and/or organ supporting interventions and documentation on the unit. MD Narinder Rich Genesis J, RCP - 01/06/2019 1:34 AM EDT AMV Protocol: Yes SBT Protocol: Yes Vent Settings: Servo I Ventilator Mode: PS/CPAP PEEP Set: 5 FiO2: 30 % PSV: 12 Ventilator Measurements: Resp: 15 Vt Spontaneous: 491 Ve: 8 SpO2: 96 % EtCO2: 40 mmHg Airway: 7.5 @ 23 cm at the Teeth. Skin Integrity: WDL Breath Sounds: Clear and diminished Secretions: Scant Assessment / Events / Plan of the Day: Pt received on Volume control ventilation. Weaned set rate, FiO2, PEEP and mode during first half of shift. Airway secure and patent. Ambu bag at bedside and in working order. No redness or skin breakdown noted during assessments. Pt comfortable on PSV - monitoring for changes and will update notes accordingly. Plan is to conduct SBT this am and discuss moving towards extubation based on SBT results today. Natalie Barcenas RCP Karen Patterson RCP - 01/05/2019 5:47 PM EDT Summary has Cardiomyopathy; Type 2 diabetes mellitus, without long-term current use of insulin; History of herpes simplex infection; LBBB (left bundle branch block); Morbid obesity with BMI of 50.0-59.9, adult; Sarcoidosis; Nephrolithiasis; Ventral hernia; HTN (hypertension); Gastroesophageal reflux; PTSD (post- traumatic stress disorder); COPD (chronic obstructive pulmonary disease); Asthma; Anxiety; Depression; Former smoker; Chronic prescription opiate use; Renal calculus, left; and Shock on their problemlist. Respiratory Data AMV Protocol: Yes SBT Protocol: Yes SBT: Not performed/Excluded: PEEP greater than 10 cmH2O Vent Settings: Servo I Ventilator Mode: VC Tidal Volume Set: 490 Resp Rate Set: (S) 20(as per ABG results) PEEP Set: 10 FiO2: (S) 30 % Ventilator Measurements: Resp: 20 Vt Exhaled: 526 PIP: 25 MAP: 15.1 Plateau Press: 20 Ve: 10.4 PEEP: 11 cmH20 SpO2: 100 % EtCO2: 28 mmHg Airway: 7.5 @ 23 cm at the Teeth. Skin Integrity: WDL Events Fio2 titrated to 30% per last ABG at 1626 of 7.45, 28.7, 127.9, 19.5. Rate decreased to 20 as per ABG. Will attempt to transition to PSV when pt less sedated. Morales Watt MD - 01/05/2019 10:31 AM EDT Images from the original note were not included. MICU STAFF BRIEF ADMIT NOTE Critical Care / Pulmonary / Internal Medicine Surgical help appreciated. Morales Watt MD [facility] Hospital Course 58F transferred from OSH to ED with 2 days of nausea, vomiting, abdominal pain, lactate of 15, and shock. In ED bedside echo suggested very low EF, confirmed by cardiology. Resuscitated, intubated, moved to MICU. CT raise concern for threatened bowel in the setting of an incarcerated ventral hernia. She was taken urgently to the operating room but got ischemia was not revealed. Mixed shock state by right heart catheterization: Cardiac index 2.2, SVR 1200. 01/05/2019: Good urine output and improved oxygenation/pressor requirement ASSESSMENT, MANAGEMENT, and DECISION MAKING: Shock- septic with cardiac overlay. Presented with temperature of 39 degrees but also has cardiomyopathy on echo and borderline low cardiac index. Improved over the past 12 hours. Possible sepsis-febrile and presentation. Presumably got source given the high lactate initially andsubstrate. Other source is not excluded. May have a right- sided pneumonia on chest x-ray. Recent renal stone procedures-raising concern for possible urinary source of infection Plan: ?? Serial labs. The team is cautioned that she would develop a respiratory alkalemia as she improvesand her vent rate should be decreased ?? Continue meropenem. Follow-up blood and urine cultures. Add sputum culture ?? Cardiology follow-up. ?? Repeat echocardiogram, formal ?? Favor Thermo dilution for cardiac output estimates. Hong unreliable given her fever and likely sepsis ?? Glucose control ?? Given wedge pressure of 10 at the moment, fluid challenge ?? Given cold lower extremities, arterial duplex study ?? Renal ultrasound, urinalysis, urine cultures ?? Prophylaxis with subcutaneous heparin and Pepcid Patient seen and examined on critical care rounds. Additional history provided by her sister, a retired ICU nurse. She stated that the patient had 2 to 3 days of nausea, bilious emesis and abdominal discomfort prior to her ED presentation. Active Problems: Shock ??? famotidine 40 mg Oral Daily ??? heparin (Porcine) 5,000 Units Subcutaneous Q8H BERT ??? insulin lispro 3-6 Units Subcutaneous TID WC ??? acetaminophen 1,000 mg Oral Q8H BERT Or ??? acetaminophen 1,000 mg Oral Q8H BERT Or ??? acetaminophen 975 mg Rectal Q8H BERT ??? fentaNYL 25 mcg Intravenous Once And ??? shift total and Settings verification 1 each Intravenous 2 Times Daily - Shift Total ??? fentaNYL 200 mcg Intravenous Once ??? midazolam (PF) 4 mg Intravenous Q4H ??? MEROpenem 1 g Intravenous Q8H ??? AMIOdarone ??? magesium sulfate in dextrose infusion 1 g Intravenous Once ??? fentaNYL 50 mcg/hr (01/05/19 0436) ??? NORepinephrine 4 mcg/min (01/05/19 1036) ??? AMIOdarone ??? EPINEPHrine in D5W 6 mcg/min (01/05/19 0229) ??? propofol 50 mcg/kg/min (01/05/19 0900) Exam: Last value Range last 24 hrs Temperature Temp: (!) 38.7 ??C (101.7 ??F) Temp: [37.1 ??C (98.8 ??F)-39.2 ??C (102.6 ??F)] Heart Rate Heart Rate: 97 Heart Rate: [76-162] Blood Pressure BP: 90/75 BP: (90-175)/(75-151) Respiratory Rate Resp: 24 Resp: [14-33] SpO2 SpO2: 100 % SpO2: [93 %-100 %] Art BP BP (Arterial Line): 101/92 BP (Arterial Line): (87-167)/(54-94) Wedge about 10 at bottom of curve Last CI 2.2 by Hong Intake/Output Summary (Last 24 hours) at 01/05/2019 1042 Last data filed at 01/05/2019 0600 Gross per 24 hour Intake 3905.4 ml Output 1015 ml Net 2890.4 ml PEx: Gen minimally agitated. Comfortably ventilated Skin Cool LEs, hairless HEENT PERRL, OP clear without thrush LNs No AC/PC/Ax MARISELA Chest CTA without rales, wheezes or rhonchi Cor Without MRG Abd Wound VAC in place. Bowel sounds not appreciated MS No active synovitis Ext No clubbing, trace edema Neuro Cannot assess Ventilator: /50/10: 7.34/30/130 Labs/studies: Recent Labs 01/04/192124 WBC 37.0* HGB 14.6 HCT 44.2 PLATELET 463* NEUTROABS 30.98* Recent Labs 01/04/192124 NA 132* K 6.3* CL 100 CO2 16* BUN 14 CREATININE 0.75 Recent Labs 01/04/192124 AST 37* ALT 30 ALKPHOS 129* BILITOT 1.1 BILIDIR 0.3 Recent Labs 01/04/192124 CALCIUM 10.5 MAGNESIUM 0.66* PHOS 3.2 Recent Labs 01/04/192124 PT 12.2 PTT 26 DDIMER 5,972* No results for input(s): LDH, URICACID in the last 168 hours. ABG (Arterial Blood Gas) Lab Results Component Value Date pH Art 7.38 01/05/2019 pO2 Art 130 (H) 01/05/2019 pCO2 Art 30 (L) 01/05/2019 Microbiology Results (Last 30 days) No results found for the last 720 hours. Results for BLOSSOM PACHECO ( ) as of 01/05/2019 00:29 Ref. Range 01/04/2019 21:25 01/04/2019 21:42 01/04/2019 22:44 01/05/2019 00:21 POC Glucose Latest Ref Range: 65 - 199 mg/dL 405 (H) 404 (H) 541 (CRIT) Results for BLOSSOM PACHECO ( ) as of 01/05/2019 00:29 Ref. Range 01/04/2019 21:25 Potassium Latest Ref Range: 3.5 - 5.0 mmol/L 6.3 (CRIT) Results for BLOSSOM PACHECO ( ) as of 01/05/2019 00:29 Ref. Range 01/04/2019 21:25 Anion Gap Latest Ref Range: 5 - 15 mmol/L 16 (H) Results for BLOSSOM PACHECO ( ) as of 01/05/2019 00:29 Ref. Range 11/08/2018 01:56 11/08/2018 06:58 11/08/2018 11:41 01/04/2019 21:25 Creatinine Latest Ref Range: 0.70 - 1.20 mg/dL 0.74 0.75 01/05/19 cxr 01/03 ACT RW;not evident severe PAD TTE 01/04/2019 1. Limited TTE performed by clinical education consultant outboard motor mechanic to evaluate ventricular function. The LVEF is severely reduced. Visually esitmated ejection fraction is 15% with diffuse hypokinesis and septal abnormalities in the setting of left bundle branch block. 2. The right ventricle is normal in size and systolic function. PASP could not be assessed due to inadequate tricuspid regurgitation jet. 3. There is probably at least mild to moderate mitral regurgitation. 4. Recommend full echocardiogram. IS PATIENT CRITICALLY ILL ? Is there a high potential of sudden, clinically significant, or life threatening deterioration? Yes Is there a need for direct personal assessment and management to treat/prevent multiple vital organfailure/deterioration? Yes PATIENT IS CRITICALLY ILL WITH THESE DIAGNOSES BEING MANAGED BY CCS TEAM: Shock Septic I personally performed 70 minutes of additional aggregate critical care time exclusive of proceduresand teaching. This includes time spent during direct patient evaluation and reassessment, interpreting diagnostic tests, directing life and/or organ supporting interventions and documentation on the unit. Morales Watt MD [facility] Clinical Laundry Agentunclaimed property officer [facility] [employer] Grooving Machine Operator - ICU/Pulmonary/Critical Care [facility] Sumanth Hermilo, [facility] - 01/05/2019 6:21 AM EDT AMV Protocol: Yes SBT Protocol: Yes SBT: Not performed/Excluded: PEEP greater than 10 cmH2O Vent Settings: Servo I Ventilator Mode: VC Tidal Volume Set: 490 Resp Rate Set: (S) 24 PEEP Set: (S)10(Increased by fellow) FiO2: (S) 60 % Ventilator Measurements: Resp: 22 Vt Exhaled: 520 PIP: 27 MAP: 12.3 Plateau Press: 27 Ve: 11.4 PEEP: SpO2: 95 % EtCO2: 38 mmHg Airway: 7.5 @ 23 cm at the Teeth. Skin Integrity: WDL Patient Active Problem List Diagnosis Code ??? [...] Renal calculus, left N20.0 ??? Shock R57.9 Assessment / Events / Plan of the Day: Blossom Pacheco was received this evening in the MICU fromthe ED intubated, on mechanical ventilation with the following settings: [id number], PEEP 10, 100% O2. Increased Vt to 490 based on 8 cc/kg per IBW. PEEP decreased to 5 by . Pt taken to OR for ex lap, returned to MICU just after 0300. PEEP increased back to 10 by . O2 weaned to 70%. ABG drawn: 7.25/37/126/16.9. RR increased to 24, O2 decreased to 60%. No further changes overnight. Plan to maintain oncurrent settings, weaning as tolerated per protocol. Target sats > 92%. Continue to monitor and support. Sumanth Melendez RCP Morales Watt MD - 01/05/2019 12:27 AM EDT Images from the original note were not included. MICU STAFF BRIEF ADMIT NOTE Critical Care / Pulmonary / Internal Medicine Cardiology and general surgical input appreciated. Morales Watt MD [facility] Hospital Course 58F transferred from OSH to ED with sudden abdominal pain, lactate of 15, and shock. In ED bedside echo suggested very low EF, confirmed by cardiology. Resuscitated, intubated, moved to MICU. Now plan to go to OR. ASSESSMENT, MANAGEMENT, and DECISION MAKING: Shock - mixed. Cardiogenic component to be determined; distributive with temp of 39 Respiratory failure Hyperglycemia AGMA-lactic Mild AST and alk phos elevation Plan: ?? Urgent OR ?? Attempt to place RHC prior to OR to differentiate shock and guide OR Rx ?? Bowel abx coverage ?? Low TV vent strategy ?? Rate control AF ?? Insulin gtt, aim BG 200 Patient seen and examined on critical care rounds. Active Problems: Shock ??? AMIOdarone ??? shift total and Settings verification Intravenous 2 Times Daily - Shift Total ??? insulin lispro 3-6 Units Subcutaneous TID WC ??? insulin regular human 0.5-8 Units/hr Intravenous Change bag every evening ??? MEROpenem 1 g Intravenous Q8H ??? AMIOdarone ??? AMIOdarone ??? magesium sulfate in dextrose infusion 1 g Intravenous Once ??? midazolam (PF) ??? NORepinephrine ??? midazolam in normal saline ??? AMIOdarone ??? EPINEPHrine in D5W 1 mcg/min (01/04/19 2300) ??? propofol 20 mcg/kg/min (01/04/19 2344) Exam: Last value Range last 24 hrs Temperature Temp: (!) 39.1 ??C (102.4 ??F) Temp: [37.1 ??C (98.8 ??F)-39.2 ??C (102.6 ??F)] Heart Rate Heart Rate: (!) 106 Heart Rate: [76-162] Blood Pressure BP: 90/75 BP: (90-175)/(75-151) Respiratory Rate Resp: 22 Resp: [14-33] SpO2 SpO2: 95 % SpO2: [93 %-100 %] Art BP BP (Arterial Line): 112/77 BP (Arterial Line): (87-167)/(54-94) No intake or output data in the 24 hours ending 01/05/19 0029 PEx: Gen Comfortably vented Skin Cool LEs, hairless HEENT PERRL, OP clear without thrush LNs No AC/PC/Ax MARISELA Chest CTA without rales, wheezes or rhonchi Cor Without MRG Abd Sedated ?tender. +BS MS No active synovitis Ext No clubbing, trace edema Neuro Cannot assess Ventilator: 18/490/10/1.0 Labs/studies: Recent Labs 01/04/192124 WBC 37.0* HGB 14.6 HCT 44.2 PLATELET 463* NEUTROABS 30.98* Recent Labs 01/04/192124 NA 132* K 6.3* CL 100 CO2 16* BUN 14 CREATININE 0.75 Recent Labs 01/04/192124 AST 37* ALT 30 ALKPHOS 129* BILITOT 1.1 BILIDIR 0.3 Recent Labs 01/04/192124 CALCIUM 10.5 MAGNESIUM 0.66* PHOS 3.2 Recent Labs 01/04/192124 PT 12.2 PTT 26 DDIMER 5,972* No results for input(s): LDH, URICACID in the last 168 hours. ABG (Arterial Blood Gas) No results found for: PHART, PO2ART, [id number] Microbiology Results (Last 30 days) No results found for the last 720 hours. Results for BLOSSOM PACHECOIE ( ) as of 01/05/2019 00:29 Ref. Range 01/04/2019 21:25 01/04/2019 21:42 01/04/2019 22:44 01/05/2019 00:21 POC Glucose Latest Ref Range: 65 - 199 mg/dL 405 (H) 404 (H) 541 (CRIT) Results for BLOSSOM PACHECO ( ) as of 01/05/2019 00:29 Ref. Range 01/04/2019 21:25 Potassium Latest Ref Range: 3.5 - 5.0 mmol/L 6.3 (CRIT) Results for BLOSSOM PACHECO ( ) as of 01/05/2019 00:29 Ref. Range 01/04/2019 21:25 Anion Gap Latest Ref Range: 5 - 15 mmol/L 16 (H) Results for BLOSSOM PACHECO ( ) as of 01/05/2019 00:29 Ref. Range 11/08/2018 01:56 11/08/2018 06:58 11/08/2018 11:41 01/04/2019 21:25 Creatinine Latest Ref Range: 0.70 - 1.20 mg/dL 0.74 0.75 01/04/19 6/14 ACT Results for BLOSSOM PACHECO ( ) as of 01/05/2019 00:29 Ref. Range 11/08/2018 01:56 11/08/2018 06:58 11/08/2018 11:41 01/04/2019 21:25 Creatinine Latest Ref Range: 0.70 - 1.20 mg/dL 0.74 0.75 IS PATIENT CRITICALLY ILL ? Is there a high potential of sudden, clinically significant, or life threatening deterioration? Yes Is there a need for direct personal assessment and management to treat/prevent multiple vital organfailure/deterioration? Yes PATIENT IS CRITICALLY ILL WITH THESE DIAGNOSES BEING MANAGED BY CCS TEAM: Shock Septic I personally performed 40 minutes of aggregate critical care time exclusive of procedures and teaching. This includes time spent during direct patient evaluation and reassessment, interpreting diagnostic tests, directing life and/or organ supporting interventions and documentation on the unit. Morales Watt MD [facility] Clinical Laundry Agentunclaimed property officer [facility] [employer] Grooving Machine Operator - ICU/Pulmonary/Critical Care [facility] / [facility] documented in this encounter H&P Notes Carlos Eduardo Tai - 01/09/2019 1:44 PM EDT Inpatient Medicine Progress Note Hospital Day 5 days Active Hospital Problems Diagnosis ??? Shock Resolved Hospital Problems No resolved problems to display. ID:Blossom Pacheco??is a 58 y.o.??female??with a PMH significant for sarcoidosis w lung and skin involvement on prednisone, primary hyperparathyroidism, COPD, MOSES on CPAP, DM, ??And ventral hernia presenting in transfer form [facility] with acute hypoxic respiratory failure and shock s/p ex lap. Brief HPI- The patient was admitted in transfer from [facility]. She was taken emergently to the OR for Ex Lap on 01/04 without any resection. Her abdomen was kept open and she remained intubated, sedated and on pressors until she was taken back to OR on 01/07 for her second ex-lap and small bowel resection. She had ~80cm of small bowel resected. She has remained on cefepime and metronidazole during this time. She has received 20-60 mg of iv lasix each day 24 Hour Events/Subjective: Today she is stating that her pain is under relatively good control. She is about to transition fromfentanyl gtt to dilaudid IV Q4H PRN for pain. She is not experiencing subjective fevers. She does endorse that she is having nausea, but has had no vomiting just what she calls spittle. She is also having some thrush for which she is requesting treatment. She states that she is having bowel movements, the most recent of which was this morning. ROS: Denies fevers/chills, chest pain, shortness of breath, diarrhea/vomiting/abdominal pain/constipation, muscle aches or weakness. Inpatient Medications: Scheduled Meds: ??? nystatin 500,000 Units Oral TID ??? famotidine 20 mg Oral BID ??? melatonin 3 mg Oral Nightly ??? heparin (Porcine) 5,000 Units Subcutaneous Q8H BERT ??? acetaminophen 1,000 mg Oral Q8H BERT Or ??? acetaminophen 1,000 mg Oral Q8H BERT Or ??? acetaminophen 975 mg Rectal Q8H BERT ??? insulin regular human 0.5-16 Units/hr Intravenous Change bag every evening ??? ceFEPime 2 g Intravenous Q8H ??? metroNIDAZOLE 500 mg Intravenous Q8H Continuous Infusions: ??? tube feeding diet PRN Meds: potassium chloride in water OR potassium chloride in water OR potassium chloride in water, HYDROmorphone, Glucose 40% oral gel OR dextrose, insulin regular human Vitals: Last value Range last 24 hrs Temperature Temp: 37.3 ??C (99.1 ??F) Temp: [37.3 ??C (99.1 ??F)-38.5 ??C (101.3 ??F)] Heart Rate Heart Rate: 87 Heart Rate: [72-100] Blood Pressure BP: 155/68 BP: (120-185)/(53-98) Respiratory Rate Resp: 24 Resp: [24] SpO2 SpO2: 99 % SpO2: [95 %-99 %] Ins/Outs: Intake/Output Summary (Last 24 hours) at 01/09/2019 1344 Last data filed at 01/09/2019 0800 Gross per 24 hour Intake 1170.18 ml Output 4195 ml Net -3024.82 ml Physical Exam: Gen: Obese, diaphoretic female resting in bed, tired appearing, with an NG tube in place HEENT: PERRLA, EOMI, sclera anicteric, OP with some white patches, MMM CVS: RRR with normal S1/S2, no appreciable m/r/g; JVD to ~7cm, peripheral pulses full and equal Pulm: CTA b/l anteriorly, breathing non-labored with good air movement, no crackles/rhonchi or wheeze Abd: Obese abdomen, drain in place, bandaged with compression bands in place. Not tender to gentle palpation, and no obvious erythema. Ext: WWP, no edema, no clubbing, no cyanosis. Skin: Intact with no rashes, petechiae, or ecchymoses Neuro: CN 2-12 grossly intact; no focal deficits grossly noted. Strength - 5/5 upper extremities. Sensation to light touch intact. Laboratory: CBC: Recent Labs 01/09/19 0207 01/08/19 0145 01/07/19 0840 WBC 18.7* 12.0* 11.0* HGB 10.7* 11.0* 10.4* PLATELET 260 169 155 Chemistry: Recent Labs 01/09/19 0207 01/08/19 0145 01/07/19 1325 NA 143 144 141 K 2.9* 3.5 3.6 CL 114* 113* 113* CO2 20* 20* 20* BUN 27* 28* 22* CREATININE 0.68* 0.92 0.76 GLUCOSE 241* 214* 152 Recent Labs 01/09/19 0207 01/08/19 1630 01/08/19 0145 01/07/19 1325 CALCIUM 9.9 -- 9.4 9.4 MAGNESIUM 0.81 0.77 -- 0.91 PHOS 2.0* 2.5 3.4 2.6 LFT's: Recent Labs 01/04/19 2125 07/22/18 1803 07/09/18 1950 BILITOT 1.1 0.8 1.2 BILIDIR 0.3 0.2 0.3 ALBUMIN 4.7 3.9 3.8 ALKPHOS 129* 77 73 ALT 30 20 25 AST 37* 31* 32* Coags: Recent Labs 01/04/192124 PT 12.2 INR 1.1 PTT 26 DDIMER 5,972* Cardiac enzymes: Recent Labs 01/05/19 1615 01/05/19 1000 01/05/19 0430 TROPONINT 0.25* 0.30* 0.32* Endocrine: Recent Labs 01/04/192124 TSH 2.90 Heme: No results for input(s): LDH, HAPTOGLOBIN, URICACID in the last 168 hours. Microbiology: None Diagnostic Studies: CT Ches Wo Contrast- 01/06 IMPRESSION 1. Trace right and small left pleural effusions. Subtotal atelectasis of the lower lobes. 2. Additional perihilar and dependent left upper lobe consolidative opacities concerning for aspiration pneumonitis. ?? CT angiogram abd and pelvis-01/06 IMPRESSION Large ventral abdominal wall defect with open abdominal wound with evidence of ischemia within the herniated loops of small bowel within and abutting abdominal Wall. 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 Plan: #Small Bowel Obstruction #Small Bowel resection Makenna is recovering from her procedure, and things seem to be going well. Surgery continues to follow, and we appreciate their recommendations. Will advance her diet as tolerated per speech and surgery, and plan to continue antibiotics. Could consider testing for c diff if continues to be febrile and h ave lots of loose stool, though only one stool so far today, so low likelihood. - Continue NG - Tube feeds at trickle per surgery - Abdominal binder per surgery - Continue cefepime 2g Q8H - Continue metronidazole 500 mg Q8H - Continue famotidine 20 mg daily - Speech consult, appreciate recs #Atrial fibrillation - given amiodarone in the ED x2 - On tele currently - Has not had any further episodes #MOSES - On home CPAP, unclear if ok to use, will f/u with surgery - Consider NC at night for comfort if not able to use CPAP #DM2 Makenna is on an insulin drip currently for her diabetes. She will be stable to transition to subq insulin, and we will calculate her insulin needs and plan to transition her soon. - On insulin gtt - Will calculate insulin requirements and switch to subQ in the near future #Pain control - Tylenol Q8H scheduled - On fentanyl gtt currently, will switch to hydromorphone 0.4 mg IV Q4H PRN #Thrush - Nystatin swish and swallow three times daily # FEN/PPx - DVT ppx: Heparin and SCDs - Diet/Fluids: NPO Dispo: Transfer to [facility] status Code Status: Full code Carlos Eduardo Tai M.D. PGY-1 Internal Medicine 01/09/2019 Red team Pager [phone] Associated attestation - Andria Pena III, MD - 01/09/2019 5:36 PM EDT Attending Attestation Please see Dr Tai's note for details of the patient history of presentation and data. I have discussed, reviewed and agree with the documented History, Physical findings, Assessment and Plan of care. I have examined the patient myself and personally reviewed all studies. In addition, I certify that I am a D-H credentialed attending provider with admitting privileges and that the patient meets or has met medical necessity to require an inpatient IPI level of care meeting a minimum of two midnights or is on the [facility] inpatient only procedure list (status C) due to: uncontrolled pain requiring titration of medications to achieve optimal effect and to minimize immediate or severe side effects and resolving sepsis in the setting of incarcerated bowel sp operative repair Ted Rajan MD - 01/05/2019 1:37 AM EDT [facility] Department of General Surgery History of Present Illness: Blossom Pacheco is a 58 year old female who presents in transfer withacute onset abdominal pain and concern for strangulated bowel in setting of incarcerated hernia. Shestates that her pain started earlier today and was accompanied by nausea and vomiting. Her pain was sharp and diffuse. She went to OSH ED where WBC was 25 and lactate was 15. CT scan showed ventral hernia containing bowel, and an area of small bowel that was dilated with fecalization although proximalsmall bowel was decompressed. She was reportedly tachycardic and hypotensive, fluid responsive. She was transferred to [facility] for further management. On arrival patient was requiring bipap, and was on low dose of levophed. Her labs here were notable for lactate of 3, WBC >30, and troponin elevation although trending down from OSH. Prior EF in 09/10 was wnl. Bedside echo revealed global dysfunction with EF of 15%. She was intubated, central line was placed and she was then taken to the MICU where sherapidly decompensated with increasing pressor requirement. Surgery was consulted for possible abdominal source for her stress cardiomyopathy. PMH: Patient Active Problem List Diagnosis Code [...] Renal calculus, left N20.0 ??? Shock R57.9 Past Medical History: Diagnosis Date ??? Asthma [...] failure 'don't know if it's failure ??? snf current use of opiate analgesic PCP ??? Mental health problem ??? Obstructive sleep apnea diag 2007 ??? Osteoma of ear canal ??? Vertigo balance prob,last fall early Jun. PSH: Past Surgical History: Procedure Laterality Date ??? PRG ECHOENCEPHALOGRAPH REAL TIME Left 11/07/2018 ULTRASOUND USE (WRVU 0.63) performed by Crow Galvin Jr., MD at [facility] MAIN OR ??? PRG FLUOROSCOPY EXAM UP TO 1 HR PHY OR OTH HLTH CARE PROV N/A 09/26/2018 FLUOROSCOPY (WRVU 0.17) performed by Crow Galvin Jr., MD at [facility] MAIN OR ??? PRG FLUOROSCOPY EXAM UP TO 1 HR PHY OR OTH HLTH CARE PROV N/A 11/07/2018 FLUOROSCOPY (WRVU 0.17) performed by Crow Galvin Jr., MD at [facility] MAIN OR ??? PRG US GUIDE INTRAOP Right 09/26/2018 ULTRASONIC GUIDANCE, INTRAOP (WRVU 1.2) performed by Crow Galvin Jr., MD at [facility] MAIN OR ? ? PRO CYSTO W URETEROSCOPY &/OR PYELOSCOPY, DX Right 09/26/2018 CYSTOURETEROSCOPY, DIAGNOSTIC (WRVU 5.75) performed by Crow Galvin Jr., MD at [facility] MAIN OR ? ? PRO CYSTO W URETEROSCOPY &/OR PYELOSCOPY, DX Left 11/07/2018 CYSTOURETEROSCOPY, DIAGNOSTIC (WRVU 5.75) performed by Crow Galvin Jr., MD at [facility] MAIN OR ??? PRO CYSTOSCOPY, INSERT URETERAL STENT Right 07/10/2018 CYSTO, STENT PLACEMENT (WRVU 2.82) performed by Viky Sears MD at [facility] OR ??? PRO CYSTOSCOPY, REMV CALCULUS, COMPLIC Right 09/26/2018 CYSTO, REMOVAL OF STENT, FOREIGN BODY, CALCULUS, COMPLICATED (WRVU 5.2) performed by Crow Galvin MD at [facility] MAIN OR ??? PRO CYSTOURETHROSCOPY, URETER CATHETER Right 07/10/2018 CYSTO, RETROGRADE, URETEROPYELOGRAPHY (WRVU 2.37) performed by Viky Sears MD at [facility] OR ??? PRO CYSTOURETHROSCOPY, URETER CATHETER Right 09/26/2018 CYSTO, RETROGRADE, URETEROPYELOGRAPHY, W/PCNL (WRVU 2.37) performed by Crow Galvin Jr., MD at [facility] MAIN OR ? ? PRO PERCUTANEOUS NEPHROSTOLITHOTOMY/PYELOSTOLITHOTOMY > 2 CM Right 09/26/2018 NEPHROLITHOTOMY, (PCNL) PERCUTANEOUS, OVER 2CM (WRVU 23.5) performed by Crow Galvin Jr., MD at [facility] OR ? ? PRO PERCUTANEOUS NEPHROSTOLITHOTOMY/PYELOSTOLITHOTOMY > 2 CM Left 11/07/2018 NEPHROLITHOTOMY, (PCNL) PERCUTANEOUS, OVER 2CM (WRVU 23.5) performed by Crow Galvin Jr., MD at [facility] MAIN OR ? ? PRO PLMT NEPHROSTOMY CATH PRQ NEW ACCESS RS&I Right 09/26/2018 NEPHROSTOMY CATHETER, PERC, INC DX NEPHROSTOGRAM/URETEROGRAM, IMG GUIDANCE (WRVU 4.25) performed Crow Snyder Jr., MD at [facility] MAIN OR ? ? PRO PLMT NEPHROSTOMY CATH PRQ NEW ACCESS RS&I Left 11/07/2018 NEPHROSTOMY CATHETER, PERC, INC DX NEPHROSTOGRAM/URETEROGRAM, IMG GUIDANCE (WRVU 4.25) performed Crow Snyder Jr., MD at [facility] MAIN OR ??? PRO RENAL ENDOSCOPY, TREATMENT Left 11/07/2018 RENAL ENDOSCOPY W\FULG, W\WO\BX, VIA NEPHROSTOMY (WRVU 6.61) performed by Crow Galvin Jr., MD [facility] MAIN OR Allergies: Allergies Allergen Reactions ??? Anafranil [Clomipramine] [...] depression ??? Sulfa (Sulfonamide Antibiotics) Hives Medications: No current facility-administered medications on file [...] ONE TABLET BY MOUTH TWICE A DAY1 Social history: Social History Socioeconomic History ??? Marital status: [...] quittin.4 ??? Smokeless tobacco: Never Used Substance and [...] file Gets together: Not on file Attends yazdanism service: Not on file Active member of [...] Social History Narrative ??? Not on file Family history: Family History Problem Relation Age of Onset ??? Cancer Father ??? Anesthesia Reaction Father ??? Cancer Sister ROS: +/- as per HPI and PMH, otherwise negative for 12 systems reviewed. Physical Exam: Temp: [37.1 ??C (98.8 ??F)-39.2 ??C (102.6 ??F)] Heart Rate: [76-162] Resp: [14-33] BP: (90-175)/(75-151) SpO2: [93 %-100 %] Heart Rate from SpO2: [34 bpm-147 bpm] Intake/Output Summary (Last 24 hours) at 01/05/2019 0137 Last data filed at 01/05/2019 0000 Gross per 24 hour Intake -- Output 250 ml Net -250 ml No intake/output data recorded. General: in moderate distress, oriented HEENT: anicteric sclera, PEERL CV: tachycardic in a flutter Pulmonary: CTAB GI: obese with palpable hernia superior to the umbilicus, moderately tender to palpation Neuro: 5/5 strength bilat U and LE, sensation intact globally MSK: wwp, no edema Derm: no obvious skin lesions Labs: Recent Results (from the past 24 hour(s)) Basic Metabolic Panel (non-fasting) Result Value Ref Range Glucose Lvl 453 (H) 65 - 199 mg/dL BUN 14 8 - 18 mg/dL Creatinine 0.75 0.70 - 1.20 mg/dL Sodium 132 (L) 135 - 145 mmol/L Potassium 6.3 (CRIT) 3.5 - 5.0 mmol/L Chloride 100 98 - 107 mmol/L CO2 16 (L) 22 - 31 mmol/L Anion Gap 16 (H) 5 - 15 mmol/L Calcium 10.5 8.5 - 10.5 mg/dL eGFR 87 >=60 mL/min/1.73 m?? eGFR 101 >=60 mL/min/1.73 m?? Hepatic Function Panel Result Value Ref Range Total Protein 7.9 6.1 - 8.0 gm/dL Albumin 4.7 3.2 - 5.2 gm/dL AST 37 (H) 0 - 30 unit/L ALT 30 0 - 30 unit/L Alk Phos 129 (H) 40 - 104 unit/L Total Bilirubin 1.1 0.2 - 1.3 mg/dL Bili, Direct 0.3 0.0 - 0.3 mg/dL Lipase Result Value Ref Range Lipase 30 0 - 60 unit/L Prothrombin Time Result Value Ref Range PT 12.2 9.4 - 12.5 sec INR 1.1 APTT Result Value Ref Range PTT 26 25 - 37 sec Troponin Result Value Ref Range Troponin-T 0.16 (H) 0.00 - 0.00 ng/mL Hemogram Result Value Ref Range WBC 37.0 (CRIT) 4.0 - 9.5 x10(3)/mcL RBC 4.83 4.00 - 5.21 x10(6)/mcL Hemoglobin 14.6 11.7 - 15.5 gm/dL Hematocrit 44.2 35.7 - 45.8 % MCV 91.5 82.6 - 94.4 fL MCH 30.2 27.1 - 32.0 pg MCHC 33.0 31.7 - 35.0 gm/dL Platelets 463 (H) 145 - 357 x10(3)/mcL RDWSD 42.6 37.0 - 46.0 fL RDWCV 12.7 11.5 - 14.1 % MPV 10.6 7.6 - 12.9 fL nRBC % Auto 0.0 % nRBC Abs Auto 0.000 0.000 - 0.000 x10(3)/mcL Differential, Automated Result Value Ref Range Neutrophils % 83.8 % Neutr Abs (ANC) 30.98 (H) 1.70 - 6.10 x10(3)/mcL Lymphocytes % 9.3 % Lymphocytes Abs 3.4 (H) 0.9 - 3.2 x10(3)/mcL Monocytes % 5.9 % Monocyte Abs 2.2 (H) 0.3 - 0.9 x10(3)/mcL Eosinophils % 0.1 % Eosinophils Abs 0.0 0.0 - 0.4 x10(3)/mcL Basophils % 0.3 % Basophils Abs 0.1 0.0 - 0.1 x10(3)/mcL Immature Gran % 0.60 % Irina Gran Abs 0.21 (H) 0.00 - 0.04 x10(3)/mcL Gold Tube HOLD Result Value Ref Range Gold Hold Sample in lab. Perez Tube Hold Result Value Ref Range Perez Hold Sample in lab. TSH Result Value Ref Range TSH 2.90 0.27 - 4.20 mcIU/mL D-Dimer, Quantitative Result Value Ref Range D-Dimer, Quant 5,972 (H) 0 - 500 FEU ng/ml Scan, Peripheral Blood Result Value Ref Range Plat Estimate Increased RBC Morphology Abnormal Ovalocytes 1-5 /HPF [place] Cells 1-5 /HPF Giant Platelets Less than 1 /HPF Magnesium Result Value Ref Range Magnesium 0.66 (L) 0.69 - 1.07 mmol/L Phosphorus Result Value Ref Range Phosphorus 3.2 2.5 - 4.5 mg/dL ABO/Rh Typing Result Value Ref Range ABORh Type O Pos Antibody screen Result Value Ref Range Ab Screen Interp Negative Expires at 2359 on: 01/07/2019 ABORH Recheck Status Result Value Ref Range ABORH Type Recheck Completed POCT Glucose Result Value Ref Range POC Glucose 405 (H) 65 - 199 mg/dL POCT Glucose Result Value Ref Range POC Glucose 404 (H) 65 - 199 mg/dL POCT Glucose Result Value Ref Range POC Glucose 541 (CRIT) 65 - 199 mg/dL Studies: As per HPI ASSESSMENT: Blossom Pacheco is a 58 y.o. female with shock - cardiogenic vs septic. Unclear etiology of her shock. She may have stress cardiomyopathy 2/2 to sepsis from ischemic bowel in setting of strangulated hernia although her exam was not particularly tender. She does have and elevated WBC, lactate, and stranding and SB dilation on her CT scan. Given her arrhythmias she may also have ischemicbowel from embolic source. Given her rapid decompensation will plan for exploratory laparotomy. Booked and consented. Ted Rajan MD Associated attestation - Ace Henry MD - 01/05/2019 4:31 AM EDT Patient seen and examined. Agree with above note as written. Ms. Pacheco is a 58 year old female with symptomatic ventral hernia who developed N/V and abdominal pain with [facility] ER impression ofhypotension and leukocytosis/acidosis from this process however [facility] After appropriate treatment and resuscitation, concern remained about underlying septic state from abdominal process, e.g., ischemia, causing shock. Exploratory laparotomy therefore planned to evaluate for bowel compromise. Ace Henry MD #[id number] My Wilcox MD - 01/05/2019 1:30 AM EDT Critical Care Admission Note Blossom Pacheco is a 58 y.o. 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 HPI: History obtained via chart review: Patient initially presented to the [facility] ED with acute onset abdominal pain and nausea/vomiting, as well as worsening dyspnea. She was tachycardic and hypotensive with labwork notable for a metabolic acidosis, a leukocytosis of 25, 00 and a lactate of 15. CT scan at [facility] showed partial small bowel obstruction secondary to incarcerated anterior wall abdominal hernia. She received ceftriaxone and flagyl as well as 1.5 L IVF. She was transferred to the [facility] ED for further management. In the ED she initially was on BiPAP but was ultimately intubated. Bedside echo showed reduced EF ~ 10-15%. She also was reportedly intermittently in and out of afib/flutter with rates in the 160's while in the ED. She was given 1g IV Meropenem, amiodarone 150 mg X2, insulin (10 units X2) and continued on norepinephrine. She was seen by Cardiology who felt that her underlying abdominal pathology was likely driving her picture with a subsequent stress and/or tachymyopathy; a PA cath placement was recommended Patient initially appeared to be weaning off of pressors with an improved lactic acid but then beganrequired increasing amounts of levophed (up to 45mcg) and epinephrine to maintain MAPs of 60s. Surgery was re-engaged and agreed to take her back to to the OR for emergent ex-lap. A PA cath was placed in the MICU. Per Dr Casillas's note Notably, she was seen by cardiology in August of 2018 prior to surgery with Dr[address] Henry for surgicalrepair of her abdominal wall hernia. She was referred for TTE which showed normal EF and nuclear stress which revealed moderate ischemia of anterior wall prompting cath. Cath revealed nonobstructive coronary disease. She had a prior history of a cardiomyopathy in 2009 of unclear etiology (with LVEF of45%). Per documentation, the ventral hernia was conservatively managed and she was just recently seen on 12/23/[address] Henry who wanted ongoing conservative management. ROS: unable to obtain given mental status Past Medical History: Diagnosis Date ??? Asthma [...] failure 'don't know if it's failure ??? 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 Mental health problem ??? Obstructive sleep apnea diag 2007 ??? Osteoma of ear canal ??? Vertigo balance prob,last fall early Jun. Past Surgical History: Procedure Laterality Date ??? PRG ECHOENCEPHALOGRAPH REAL TIME Left 11/07/2018 ULTRASOUND USE (WRVU 0.63) performed by Crow Galvin Jr., MD at [facility] MAIN OR ??? PRG FLUOROSCOPY EXAM [facility] TO [facility] PROV N/A 09/26/2018 FLUOROSCOPY (WRVU 0.17) performed by Crow Galvin Jr., MD at [facility] OR ??? PRG FLUOROSCOPY EXAM UP TO 1 HR [facility] PROV N/A 11/07/2018 FLUOROSCOPY (WRVU 0.17) performed by Crow Galvin Jr., MD at [facility] OR ??? PRG US GUIDE INTRAOP Right 09/26/2018 ULTRASONIC GUIDANCE, INTRAOP (WRVU 1.2) performed by Crow Galvin Jr., MD at [facility] OR ? ? PRO CYSTO W URETEROSCOPY &/OR PYELOSCOPY, DX Right 09/26/2018 CYSTOURETEROSCOPY, DIAGNOSTIC (WRVU 5.75) performed by Crow Galvin Jr., MD at [facility] OR ? ? PRO CYSTO W URETEROSCOPY &/OR PYELOSCOPY, DX Left 11/07/2018 CYSTOURETEROSCOPY, DIAGNOSTIC (WRVU 5.75) performed by Crow Galvin Jr., MD at [facility] OR ??? PRO CYSTOSCOPY, INSERT URETERAL STENT Right 07/10/2018 CYSTO, STENT PLACEMENT (WRVU 2.82) performed by Viky Sears MD at [facility] OR ??? PRO CYSTOSCOPY, REMV CALCULUS, COMPLIC Right 09/26/2018 CYSTO, REMOVAL OF STENT, FOREIGN BODY, CALCULUS, COMPLICATED (WRVU 5.2) performed by Crow Galvin MD at [facility] OR ??? PRO CYSTOURETHROSCOPY, URETER CATHETER Right 07/10/2018 CYSTO, RETROGRADE, URETEROPYELOGRAPHY (WRVU 2.37) performed by Viky Sears MD at [facility] OR ??? PRO CYSTOURETHROSCOPY, URETER CATHETER Right 09/26/2018 CYSTO, RETROGRADE, URETEROPYELOGRAPHY, W/PCNL (WRVU 2.37) performed by Crow Galvin Jr., MD at [facility] OR ? ? PRO PERCUTANEOUS NEPHROSTOLITHOTOMY/PYELOSTOLITHOTOMY > 2 CM Right 09/26/2018 NEPHROLITHOTOMY, (PCNL) PERCUTANEOUS, OVER 2CM (WRVU 23.5) performed by Crow Galvin Jr., MD at [facility] MAIN OR ? ? PRO PERCUTANEOUS NEPHROSTOLITHOTOMY/PYELOSTOLITHOTOMY > 2 CM Left 11/07/2018 NEPHROLITHOTOMY, (PCNL) PERCUTANEOUS, OVER 2CM (WRVU 23.5) performed by Crow Galvin Jr., MD at [facility] MAIN OR ? ? PRO PLMT NEPHROSTOMY CATH PRQ NEW ACCESS RS&I Right 09/26/2018 NEPHROSTOMY CATHETER, PERC, INC DX NEPHROSTOGRAM/URETEROGRAM, IMG GUIDANCE (WRVU 4.25) performed byCrow Galvin Jr., MD at [facility] MAIN OR ? ? PRO PLMT NEPHROSTOMY CATH PRQ NEW ACCESS RS&I Left 11/07/2018 NEPHROSTOMY CATHETER, PERC, INC DX NEPHROSTOGRAM/URETEROGRAM, IMG GUIDANCE (WRVU 4.25) performed byCrow Galvin Jr., MD at [facility] MAIN OR ??? PRO RENAL ENDOSCOPY, TREATMENT Left 11/07/2018 RENAL ENDOSCOPY W\FULG, W\WO\BX, VIA NEPHROSTOMY (WRVU 6.61) performed by Crow Galvin Jr., MD [facility] MAIN OR Family History Problem Relation Age of Onset ??? Cancer Father ??? Anesthesia Reaction Father ??? Cancer Sister Social History Social History Narrative Not on file Outpatient medications: No current facility-administered medications on file prior [...] ONE TABLET BY MOUTH TWICE A DAY1 Previous inpatient medications: Allergies Allergen Reactions ??? Anafranil [Clomipramine] give me the flu ??? Augmentin [Amoxicillin-Pot Clavulanate] Hives and Itching ??? Cis Free Text Allergy Ketamine. CIS - hallucinations ??? Erythromycin Hives and Itching ??? Lidocaine Hcl (Local Anesth.) [Procedural Tray] Itching and Other (See Comments) Lidocaine 2% topical anesthetic jelly. Causes itching and burning ??? Macrobid [Nitrofurantoin Monohyd/M-Cryst] Causes depression ??? Sulfa (Sulfonamide Antibiotics) Hives Last value Range last 24 hrs Temperature Temp: (!) 39.1 ??C (102.4 ??F) Temp: [37.1 ??C (98.8 ??F)-39.2 ??C (102.6 ??F)] Heart Rate Heart Rate: (!) 118 Heart Rate: [76-162] Blood Pressure BP: 90/75 BP: (90-175)/(75-151) Respiratory Rate Resp: 20 Resp: [14-33] SpO2 SpO2: 98 % SpO2: [93 %-100 %] Art BP BP (Arterial Line): 106/62 BP (Arterial Line): (87-167)/(54-94) Physical Exam: General: Obese female lying in bed intubated and sedated Neuro: Sedated. RASS- 4 Cardiovascular: tachycardic, irregularly irregular Ext: cold, mildly dusky extremities, 1+ peripheral edema in the b/l lower extremities Labs: Last wbc, hgb, hct plt Recent Labs 01/04/192124 WBC 37.0* HGB 14.6 HCT 44.2 Last 3 Lytes Recent Labs 01/04/19212411/08/18 0156 11/07/18 1435 NA 132* 136 136 K 6.3* 4.9 4.8 CL 100 103 102 CO2 16* 20* 21* BUN 14 15 14 CREATININE 0.75 0.74 0.79 Last 3 LFTs Recent Labs 01/04/19212407/22/18 1803 07/09/18 1950 AST 37* 31* 32* ALT 30 20 25 ALKPHOS 129* 77 73 BILITOT 1.1 0.8 1.2 BILIDIR 0.3 0.2 0.3 Last 3 Coags Recent Labs 01/04/192124 PT 12.2 INR 1.1 PTT 26 Last 3 ProBNP, Trop, CK Recent Labs 01/04/192124 TROPONINT 0.16* Last 3 HgbA1C Recent Labs 07/10/18 0320 HA1C 7.8* Last CRP, SEDRATENo results for input(s): CRP, SEDRATE in the last 7068 hours. Microbiology: blood cultures pending Imaging: (01/05/19) IMPRESSION 1. ET tube in good position. 2. Right IJ central line appears to be high with tip at the confluence of the IJ and brachiocephalic vein. 3. New confluent perihilar pulmonary opacities concerning for flash pulmonary edema and/or ARDS. 4. New dense retrocardiac opacity suspicious for complete left lower lobe atelectasis. Assessment: with a PMH significant for nephrolithiasis c/b obstruction and sepsis s/p b/l PCNL, sarcoidosis w lung and skin involvement on prednisone, primary hyperparathyroidism, COPD, MOSES on CPAP, DM, And ventral hernia presenting in transfer form [facility] with acute hypoxic respiratory failure and shock. Presentation is also notable for significant leukocytosis(WBC 37), hyperkalemia, AGMA/lactic acidosis, hyperglycemia. Suspect her shock is mixed distributiveand cardiogenic with her abdominal pathology driving her picture. Given her worsening hemodynamics and PA catheter was placed and she was taken emergently for ex-lap given her known incarcerated abdominal hernia. With regards to her reduced ejection fraction, agree with cardiology that a stress/tachymopathy in the setting of acute/subacute illness is likely the etiol ogy and PA catheter numbers will be helpful post-operatively at determining if cardiogenic shock is significantly contributing to picture. Plan: Neuro: Sedated- continue propofol and fentanyl Pulm: #Hypoxic respiratory failure Intubated Trend ABGs CV: #Shock, likely mixed 2/2 distributive/cardiogenic -Continue levophed -Epinephrine off -Would add vasopressin -F/u PA cath #'s -Antimicrobials as below -Cardiology consulted appreciate recs #Afib/flutter - Will start anticoagulation post-op - Telemetry - S/p amiodarone in ED GI: #Incarcerated abdominal hernia/ ? Mesenteric thrombus - trend lactates - taken emergently for ex-lap - continue Meropenem Renal/FEK: #AGMA/Lactic Acidosis -likely 2/2 septic shock/ consider contributtio #Hyperkalemia -Trend BMPs -Replete electrolytes -Telemetry Hematology: - no active issues ID: #Septic Shock -Continue IV Meropenem -consider test dose of cephalosporin when patient more stable (hx of penicillin allergy rash/hives only - F/u blood cultures Endocrine: #Hx sarcoidosis #Hyperglycemia Insulin gtt DVT Prophylaxis: will start post operatively GI prophylaxis: pepcid Code Status: Full code per ER team's discussion with patient prior to intubation DPOA: Sister, Mona Pacheco Disposition: MICU Blue Team, possibly to SICU post-operatively My Wilcox MD January 05, 2019 Critical Care Blue Team #[id number] documented in this encounter Procedure Notes Tha Crowell MD - 01/05/2019 1:22 AM EDTProcedure(s): DH INSERT PULMONARY ARTERY CATHETER [place] Procedure Note Date: 01/05/19 Time: 0100 AM Indication: Hemodynamic monitoring A time-out was completed verifying correct patient, procedure, site, positioning, and special equipment if applicable. The patient was placed in a dependent position appropriate for central line placement based on the vein already cannulated with a 9F Cordis catheter. The patient???s Cordis site was pr epped and draped in sterile fashion. A triple lumen continuous cardiac output [place] catheter wasbrought onto the field and each line flushed with sterile saline and the SVO2 sensor calibrated. Thecatheter was introduced into the Cordis catheter to a distance of 15-17 cm. The balloon was then inflated and the catheter was advanced through the right ventricle and into the pulmonary artery until awedge position pressure tracing was obtained. The balloon was then deflated and verification of return of a pulmonary artery pressure tracing made. During the floating procedure to position the catheter the position of the catheter tip was determined by continuous pressure monitoring via the distal por t. The catheter was locked to the Cordis with the tip inserted to a distance of 52cm and a sterile dressing applied. The patient tolerated the procedure well and there were no complications. Wedge pressure was 12 Associated attestation - Morales Watt MD - 01/05/2019 11:04 AM EDT I was present throughout. documented in this encounter ED Notes Iman Galicia RN - 01/05/2019 12:15 AM EDT Hand off given to Albina ADAMS at the bedside. Hossein Chahal MD - 01/04/2019 11:48 PM EDT ED STAFF PROGRESS NOTE Blossom Pacheco is a 58 y.o. female presents in transfer for shock and a question of incarceratedbowel. She reports that she initially had sudden onset abdominal pain and vomiting. This was followed by severe shortness of breath without chest pain. He presented to the emergency department had a white count of 25,000, lactate of 15 mmol/L, was tachycardic in the 130s and hypotensive. Per DHart wassignificantly short of breath and required BiPAP. She was managed with norepinephrine throughout thetransfer. Treated with ceftriaxone and flagyl. Clean coronary catheterization with a normal ejection fraction in August 2018. I was unable to obtain any further history from the patient secondary to her critical illness. EXAM: Last value Range last 24 hrs Temperature Temp: 37.1 ??C (98.8 ??F) Temp: [37.1 ??C (98.8 ??F)] Heart Rate Heart Rate: (!) 108 Heart Rate: [76-162] Blood Pressure BP: (!) 117/97 BP: (117-175)/(85-151) Respiratory Rate Resp: 14 Resp: [14-33] SpO2 SpO2: 100 % SpO2: [95 %-100 %] Art BP BP (Arterial Line): 108/64 BP (Arterial Line): (108-167)/(64-83) There is no height or weight on file to calculate BMI. Height 154 cm. Gen: Critically ill, on BiPAP, tachypneic HENT: Obese neck with normal range of motion CV: Muffled heart sounds, tachycardic. Intermittently in the 160s. Pulm: Difficult to auscultate GI: Obese, soft with no peritoneal signs Extrem: cool, diaphoretic Neuro: Answers questions, intermittently confused and less conversant off bicarb. Respiratory Support: BiPAP and Intubated-8 cc/kg PBW is 376mL Lines: Bilateral PIV, new RIJ cordis Fluid Balance: 2L NS Micro: cultures Studies: ?? Central Venous Blood Gas: 7.12/53, BE -12.3, ?? ScvO2 77% ?? Lactate 4mmol/L ?? Glucose 507 ?? WBC 37 ?? K 6.3 ?? Mild AG ?? BiCarb 16 ED Course: The patient was seen by the emergency medicine team and surgery team immediately on arrival. She didnot have a peritoneal abdominal exam and we continue the vasopressors and placed a right arterial line. She was initially on BiPAP and was mentating well, but after some time past she became more somnolent and had increased work of breathing and became profoundly diaphoretic with cool skin. This pointin time decision made to intubate her. She was started on norepinephrine infusion again, induced with fentanyl and Versed and intubated without any adverse events. Afterwards a right single lumen 9 [place] Cordis central line was placed. Throughout all of this the patient had intermittent atrial fib/flutter with rates in the 160s. During this time we performed a bedside echo with limited views of the left parasternal that showed a EF of approximately 15% with no pericardial effusion. Cardiology, critical care and gen surg consulted and we discussed the case at bedside. She was treated with: ?? Calcium ?? Magnesium ?? Insulin bolus 10 units x2 ?? Amio 150mg x2 ?? Meropenem 1g ?? norepi infusion ?? Low dose epi infusion ?? Fentanyl and dilaudid boluses ?? Versed ?? propofol Assessment: 58 y.o. female presents to the emergency department in mixed shock of unclear etiology. She has some bowel wall edema and a severely reduced ejection fraction. I initially thought this was primary abdomen, but then as we found the severely reduced EF, she had cold clammy skin is with hypertension and were entertaining the idea of cardiogenic shock. We placed a right IJ central line and had a central venous sat of 77.4%, she does not have LFT elevations or an BERNARD. I think this argues against pure cardiogenic shock, but will need a pulmonary artery catheter to follow her cardiac output and mixed venous saturations. Throughout the emergency department stay she continued to decline. She had intermittent episodes of atrial fibrillation/flutter with a rapid ventricular response, and continued hypotension. She was continued on nor epi and started on low-dose epinephrine. I am concerned this may be mesenteric ischemia: Thromboembolic versus atherosclerotic. Discussed this again with the general surgery team and we agreed that we should pursue a CTA of the abdomen pelvis. We will hold heparin in the emergency department until we have a CT scan. Neuro: Goal to sedate for ventilator synchrony. Intermittent Dilaudid, midazepam boluses, start low-dose propofol infusion. CV: Severely reduced ejection fraction, likely mixed cardiogenic picture. Follow central venous blood gas, discussed with the ICU about placing a pulmonary artery catheter to help delineate cardiac index and follow mixed venous saturation. amio for afib/flutter Pulm: Hypoxic respiratory failure likely from cardiogenic pulmonary edema. Ventilating and volume control, 8 mL/kg which is approximately 376 mL, increase the minute ventilation based on the central venous blood gas but will need to repeat an ABG once in the ICU, increase the PEEP to 10. GI: Repeat CTA of the abdomen and pelvis. Renal: Zheng in place. Normal creatinine Endo: severe hyperglycemia, insulin infusion not readily available and bolused with 10 units x 2. Heme: Severe leukocytosis. ID: Coverage broadened with meropenem in the emergency department. FEN: Hold nutrition, calcium for hyperkalemia, will need to recheck BMP. Prophy: HOB elevated Activity: bedrest Code Status: FULL Disposition: MICU with cardiology and surgery consults IS PATIENT CRITICALLY ILL ? Is there a high potential of sudden, clinically significant, or life threatening deterioration? Yes Is there a need for direct personal assessment and management to treat/prevent multiple vital organfailure/deterioration? Yes PATIENT IS CRITICALLY ILL WITH THESE DIAGNOSES BEING MANAGED BY [facility] TEAM: Acidosis Respiratory Metabolic Lactic Acute Myocardial Infarction Non-ST elevated, NSTEMI Arrhythmia Atrial fibrillation Paroxysmal and Atrial flutter Unspecified Congestive Heart Failure Unspecified Hyperkalemia Hypotension Arterial Pulmonary Edema: Acute Cardiogenic Systolic Acute Respiratory Failure Acute with hypoxia Shock Unspecified I personally performed 75 minutes of aggregate critical care time exclusive of procedures and teaching. This includes time spent during direct patient evaluation and reassessment, interpreting diagnostic tests, directing life and/or organ supporting interventions and documentation on the unit. Hossein Chahal MD 01/05/19 0017 Ariane Johnson MD - 01/04/2019 10:30 PM EDT ED Transfer Note: Patient accepted in transfer by General Surgery due to concern for sepsis secondary to necrotic bowel. A brief history was elicited from the patient and the transfer documents. Briefly, Blossom Pacheco is a 58 y.o. female with Hx of cardiomyopathy (recovered EF, now 65% on 08/2018), COPD, nephrolithiasis, PTSD, DMII, LBBB who presented to the OSH for acute onset abdominal pain and vomiting. She was in itially tachycardic in the 130s, hypoxemic in the 80s and had a known left bundle on EKG. She becamecritically hypotensive with systolic in the high 90s but was fluid responsive after 1.5L of fluids. Labs demonstrated leukocytosis of 25,000, lactate of 15. Metabolic acidosis on venous blood gas with small anion gap of 17. She was given 1 g ceftriaxone, 500 mg Flagyl and 2 g IV vancomycin given penicillin allergy. She had a troponin elevation of 0.21. CT scan was concerning for bowel obstruction with necrotic bowel secondary to incarcerated abdominal hernia. BiPAP was started and patient was transferred. She arrived via [facility] on , reporting that she complained of severe SOB upon their arrival. Complaining of ongoing abdominal pain on arrival to [facility]. On my examination, General: ill-appearing, diaphoretic, eyes closed but opens to voice and converses appropriately, fully oriented HEENT: normocephalic/atraumatic, EOMI, PERRL, MMM Neck: supple, full range of motion Cardiovascular: tachycardic, regular rhythm with intermittent A-fib with RVR; no LE edema Pulmonary: distant breath sounds, mildly increased work of breathing, on BiPAP Abdomen: soft, morbidly obese, moderate TTP, no rebound/guarding Skin: no rashes, no bruising, cool to the touch Neuro: moving all extremities Patient was emergently intubated with Versed/fentanyl for anticipated clinical course, septic shock.Progressive somnolence despite BiPAP. The patient and her CT scan were evaluated by general surgery,they were unclear if she truly had necrotic bowel given that her repeat lactate was 4 and she had a non-peritoneal abdominal exam. Bedside ultrasound showed severely reduced EF of approximately 15% which was confirmed by outboard motor mechanic. Ultrasound also showed bilateral B-lines consistent with pulmonary edema. There is some concern for cardiogenic shock although it is unclear if this is the drivingetiology. She was started on meropenem for broader coverage given that repeat white blood cell countwas 37K. She was also given 1 g calcium gluconate, IV insulin for hyperkalemia with a potassium of 6.3 and hypoglycemia with a blood sugar of 507. She was continued on pressors and eventually started on epinephrine infusion with new right IJ cordis placed. Bolused amiodarone 150 mg x 2 for intermittent episodes of A. fib with RVR/a flutter. We will order CTA abdomen/pelvis due to concern for mesenteric ischemia. Patient was subsequently admitted to the MICU for further work-up. ED Disposition: admit to the MICU Ariane Johnson MD Resident 01/06/198 Associated attestation - Hossein Chahal MD - 01/07/2019 9:06 PM EDT ED ATTENDING ATTESTATION NOTE The patient was seen in conjunction with the resident physician. I have independently performed the lindo portions of the history and physical exam. I have personally reviewed nursing notes, vital signs,and diagnostic studies including labs, imaging studies and EKGs. I have discussed the details of the case with the resident and agree with the assessment and plan as described in the resident's note. Iman Galicia RN - 01/04/2019 10:11 PM EDT Intubation medication notations All meds administered by Dr. Chahal for intubation 2205 Versed 2 mg IV 2206 Fentanyl 50 mcg IV 2207 Rocuronium 100 mg IV 2208 Fentanyl 50 mcg 2208 Versed 2 mg 2212 Versed 2 mg Patient sedated at 2208 ETtube in at 2211 with 23 adan at the teeth Patient tolerated procedure well Iman Galicia RN - 01/04/2019 10:02 PM EDT Patient continues to maintain mentation. Time out for intubation completed. Iman Galicia RN - 01/04/2019 9:54 PM EDT NOrEpi started at 2.5 mcg/min Iman Galicia RN - 01/04/2019 9:46 PM EDT BI Pap back on Iman Galicia RN - 01/04/2019 9:45 PM EDT Time out for intubation performed with Dr. Chahal, Dr. Johnson, [facility] Iman Galicia RN - 01/04/2019 9:37 PM EDT Norepinephrine turned off per MD order. Iman Galicia RN - 01/04/2019 9:10 PM EDT Art Line inserted On the R radial artery by Dr. Johnson using sterile technique. Procedure toleratedwell by patient. documented in this encounter Miscellaneous Notes Plan of Care - Kurt Starkey RN - 01/15/2019 5:35 AM EDT Problem: Patient Care Overview Goal: Plan of Care Review Outcome: Ongoing (Interventions Implemented as Appropriate) 01/09/19 0601/14/192124 Plan of Care Review Progress progress toward functional goals is gradual -- Coping/Psychosocial Plan Of Care Reviewed With -- patient OUTCOME EVALUATION NOTE: OUTCOME SUMMARY: Patient AOx4, VSS, on RA. 5 mg PO oxy given x1 for abdominal discomfort with good effect. BIANCA drain dressing C, D, I. Small amount of serosanguinous drainage from BIANCA. Patient able to ambulate to commodeto void, good urine output noted. Critical potasium 3.0 with AM labs, MD notified. Sleeping in between care. No issues overnight. Will continue to monitor and notify MD of any changes. PLAN MOVING FORWARD: Staple removal, awaiting discharge to rehab INDIVIDUALIZED FALL PREVENTION INTERVENTIONS: Patient-specific fall risk factors per assessment: [current deficits]: Generalized weakness, obesity, Assistance [level of assistance required for transfers and ambulation]: 1-2A w/ RW Supervision [direct monitoring required during toileting and ADLs]: Hands on Surveillance [continuous indirect monitoring]: Call leigh within reach, hourly rounding, room closet to nursing station, bed alarm set Patient-specific fall prevention interventions for sensory deficits provided, if applicable: [X] N/A CPG GOAL OUTCOME EVALUATION: Plan of Care - Britt Hall RN - 01/14/2019 5:39 PM EDT Problem: Patient Care Overview Goal: Plan of Care Review Outcome: Ongoing (Interventions Implemented as Appropriate) 01/09/19 0628 01/14/19 0814 Plan of Care Review Progress progress toward functional goals is gradual -- Coping/Psychosocial Plan Of Care Reviewed With -- patient OUTCOME EVALUATION NOTE: OUTCOME SUMMARY: Pt is alert and oriented to all question but shows signs of Delirium, VSS, on RA. Pt complained of incision pain, 5mg oxycodone given with good effects, scheduled meds given. AM Potassium 2.8, PO 40 mEq x3 with total of 120 mEq given, PRN imodium QID ordered, given x1, started on Lactobacillus daily, G abapentin dose changed from 100mg to 300mg TID, IV ABX discontinued. Pt started on 12 units Lantus q24hr, BG monitored, coverage given as needed. Pt worked with PT today (see notes). Pt is currently inbed, bed alarm on, call light within reach, safety maintained. PLAN MOVING FORWARD: PT, continue monitoring INDIVIDUALIZED FALL PREVENTION INTERVENTIONS: Patient-specific fall risk factors per assessment: [current deficits]: IV site, Masimo, general weakness Assistance [level of assistance required for transfers and ambulation]: 2 Assist w/ walker Supervision [direct monitoring required during toileting and ADLs]: Hands on Surveillance [continuous indirect monitoring]: Safety checks, bed alarm on, call light within reach,fall prevention maintained. Patient-specific fall prevention interventions for sensory deficits provided, if applicable: [X] N/A CPG GOAL OUTCOME EVALUATION: Plan of Care - Mary Sesay Hermilo, OT - 01/14/2019 4:09 PM EDT Occupational Therapy Treatment Note Treatment Number OT: 2 Patient Dx: Blossom Pacheco??is a 58 y.o.??female??admitted on 01/04/2019??by Dr. Andria Pena III, MD??for SBO and septic shock. Pt was transferred from an OSH. Pt underwent an exploratory lap with abdomen left open and pt intubated, 01/04/19. Underwent 2nd Exploratory lap, 01/07/19, for SB resection and reduction of hernia. Pt in afib, in the ED only. Extubated 01/08/19. Pt with 2 recent kidney surgeries, 09/2018. Precautions/Special Considerations: Abdominal binder at all times for OOB. Activity as tolerated. RLQ BIANCA drain. Log Roll Interval History: tolerating PO S: That feels good. It feels like I could get up and walk. Pt's comment re: abdominal binder O: Patient seen for therapeutic activities and demonstrated the following: ?? Self-care: Dependent for toileting hygiene. SBA to don slip-on sneakers at EOB. ?? Functional Mobility: min A supine to sit from flat bed with cues for log roll and extra time. CGAsit > stand from elevated bed to FWW. Pt stepped bed > commode > chair with CGA, minimal cues for safety, and extra time. CGA for commode transfer. ?? Cognition: ?? Behavior / Mood: alert and cooperative ?? Alert and oriented to: person, place, time and situation ?? Follows commands: multi step and 100% of the time ?? Attention: WFL ?? Safety awareness: WFL ?? Pt motivated to progress OOB activity and ambulation ?? Vitals: O2 98% HR 85 at rest. O2 96% HR 102 with simple transfer activity. Pain: no c/o pain Education: Pt/family/caregiver education ongoing regarding: Role of occupational therapy/rehabilitation, Transfers, Assistive device/technique, ADL, Positioning, Safety, Precautions/Protocol, Brace Management, Functional Mobility, Activity pacing/Energy conservation, Balance, Recommendations and Discharge planning. Staff Communication: Patient status, treatment, and mobility recommendations discussed with nursing/other staff. ASSESSMENT: Pt presents with improved strength, activity tolerance, and balance since initial OT evaluation but continues to require max A for LB ADLs and min A for transfers secondary to general deconditioning, impaired standing balance, limited activity tolerance, and limited flexibility due to bodyhabitus and abdominal incision/precautions. Pt is very motivated towards independence and would benefit from rehab placement to address her functional deficits and facilitate return to PLOF. Pt will benefit from ongoing therapeutic interventions to achieve pt's and therapy goals Anticipated Discharge Disposition: inpatient rehabilitation facility Equipment Recommendations: TBD at rehab Daily schedule / Staff Recommendations: Allow pt extra time to perform self-care tasks Provide opportunities for pt to participate in self-care Assist pt OOB to chair 2-3 times daily for meals and self-care Encourage pt to maximize participation in self-care Encourage use of bedside commode for toileting Occupational Therapy Goals: To be achieved by 01/24/19 1. Pt will complete commode transfer with min A & LRD (ongoing) 2. Pt will complete bowel/bladder hygiene with mod A & cues (ongoing) 3. Pt will complete seated/standing grooming tasks at sink with set up A & LRD (ongoing) 4. Pt will sit EOB unsupported completing B UE HEP maintaining good static/dynamic balance (ongoing) 5. Pt will participate in self-care tasks for 20 minutes without cues to maintain PAYAM & attention to task (MET) 6. Pt will don/doff LB clothing seated EOB with set up A & cues using LH AE as needed (ongoing) Therapy Frequency: 2-3 times/wk Total Evaluation Minutes, Occupational Therapy: 25(SCHM x 2) Pager: [phone] Mary Sesay OT Occupational Therapy Rehabilitation Department Plan of Care - Naomi Ly, PT - 01/14/2019 2:44 PM EDT Physical Therapy treatment note 2 Patient profile: Blossom Pacheco is a 58 y.o. female admitted on 01/04/[address] Kelsey Eaton MD for SBO and septic shock. Pt was transferred from an OSH. Pt underwent an exploratory lap withabdomen left open and pt intubated, 01/04/19. Underwent 2nd Exploratory lap, 01/07/19, for SB resection and reduction of hernia. Pt in afib, in the ED only. Extubated 01/08/19. Pt with 2 recent kidney surgeries, 09/2018. Patient with the following active problems: Past Medical History: Diagnosis Date ??? Asthma ??? Bowel disease IBS ??? CHF (congestive heart failure) diag 2016 [facility] ??? Chronic lung disease sarcoidosis ??? Chronic [...] failure 'don't know if it's failure ??? snf current use of opiate analgesic PCP ??? Mental health problem ??? Obstructive sleep apnea diag 2007 ??? Osteoma of ear canal ??? Vertigo balance prob,last fall early Jun. Past Surgical History: Procedure Laterality Date ??? PRG ECHOENCEPHALOGRAPH REAL TIME Left 11/07/2018 ULTRASOUND USE (WRVU 0.63) performed by Crow Galvin Jr., MD at [facility] MAIN OR ??? PRG FLUOROSCOPY EXAM UP TO 1 HR PHY OR OTH HLTH CARE PROV N/A 09/26/2018 FLUOROSCOPY (WRVU 0.17) performed by Crow Galvin Jr., MD at [facility] MAIN OR ??? PRG FLUOROSCOPY EXAM UP TO 1 HR PHY OR OTH HLTH CARE PROV N/A 11/07/2018 FLUOROSCOPY (WRVU 0.17) performed by Crow Galvin Jr., MD at [facility] MAIN OR ??? PRG US GUIDE INTRAOP Right 09/26/2018 ULTRASONIC GUIDANCE, INTRAOP (WRVU 1.2) performed by Crow Galvin Jr., MD at [facility] OR ? ? PRO CYSTO W URETEROSCOPY &/OR PYELOSCOPY, DX Right 09/26/2018 CYSTOURETEROSCOPY, DIAGNOSTIC (WRVU 5.75) performed by Crow Galvin Jr., MD at [facility] OR ? ? PRO CYSTO W URETEROSCOPY &/OR PYELOSCOPY, DX Left 11/07/2018 CYSTOURETEROSCOPY, DIAGNOSTIC (WRVU 5.75) performed by Crow Galvin Jr., MD at [facility] OR ??? PRO CYSTOSCOPY, INSERT URETERAL STENT Right 07/10/2018 CYSTO, STENT PLACEMENT (WRVU 2.82) performed by Viky Sears MD at [facility] OR ??? PRO CYSTOSCOPY, REMV CALCULUS, COMPLIC Right 09/26/2018 CYSTO, REMOVAL OF STENT, FOREIGN BODY, CALCULUS, COMPLICATED (WRVU 5.2) performed by Crow Galvin MD at [facility] OR ??? PRO CYSTOURETHROSCOPY, URETER CATHETER Right 07/10/2018 CYSTO, RETROGRADE, URETEROPYELOGRAPHY (WRVU 2.37) performed by Viky Sears MD at [facility] OR ??? PRO CYSTOURETHROSCOPY, URETER CATHETER Right 09/26/2018 CYSTO, RETROGRADE, URETEROPYELOGRAPHY, W/PCNL (WRVU 2.37) performed by Crow Galvin Jr., MD at [facility] OR ??? PRO EXPLORATORY OF ABDOMEN N/A 01/05/2019 @EXPLORATORY LAPAROTOMY, WITH/WITHOUT BIOPSY(S) (WRVU 12.54) performed by Ace Henry MD at [facility] OR ??? PRO EXPLORATORY OF ABDOMEN N/A 01/07/2019 @EXPLORATORY LAPAROTOMY, WITH/WITHOUT BIOPSY(S) (WRVU 12.54) performed by Ace Henry MD at [facility] OR ??? PRO FREEING BOWEL ADHESION, ENTEROLYSIS N/A 01/05/2019 @LYSIS OF ADHESIONS, ABD. (WRVU 18.46) performed by Ace Henry MD at [facility] OR ? ? PRO PERCUTANEOUS NEPHROSTOLITHOTOMY/PYELOSTOLITHOTOMY > 2 CM Right 09/26/2018 NEPHROLITHOTOMY, (PCNL) PERCUTANEOUS, OVER 2CM (WRVU 23.5) performed by Crow Galvin Jr., MD at [facility] MAIN OR ? ? PRO PERCUTANEOUS NEPHROSTOLITHOTOMY/PYELOSTOLITHOTOMY > 2 CM Left 11/07/2018 NEPHROLITHOTOMY, (PCNL) PERCUTANEOUS, OVER 2CM (WRVU 23.5) performed by Crow Galvin Jr., MD at [facility] MAIN OR ? ? PRO PLNY NEPHROSTOMY CATH PRQ NEW ACCESS RS&I Right 09/26/2018 NEPHROSTOMY CATHETER, PERC, INC DX NEPHROSTOGRAM/URETEROGRAM, IMG GUIDANCE (WRVU 4.25) performed byCrow Galvin Jr., MD at [facility] MAIN OR ? ? PRO PLMT NEPHROSTOMY CATH PRQ NEW ACCESS RS&I Left 11/07/2018 NEPHROSTOMY CATHETER, PERC, INC DX NEPHROSTOGRAM/URETEROGRAM, IMG GUIDANCE (WRVU 4.25) performed byCrow Galvin Jr., MD at [facility] MAIN OR ??? PRO RENAL ENDOSCOPY, TREATMENT Left 11/07/2018 RENAL ENDOSCOPY W\FULG, W\WO\BX, VIA NEPHROSTOMY (WRVU 6.61) performed by Crow Galvin Jr., MD [facility] MAIN OR ??? PRO RESECT SMALL INTEST, SINGL RESEC/ANAS N/A 01/07/2019 @BOWEL RESECTION, SMALL INTESTINE SINGLE ANASTOMOSIS (WRVU 20.82) performed by Ace Henry MD at [facility] MAIN OR Social History: Home set-up: One floor apartment. Lives alone and drives. Has a sister, in [place], who is her biggestsupport. Bathroom Set-up: Tub/shower with a seat Stairs: 5 with 2 railings to support her Baseline Mobility: Pt uses a rollator, but cane in bedroom, bathroom and kitchen, where her rollatordoes not fit Equipment at home: Rollator, cane, commode, tub seat Fall history: yes Precautions/Special Considerations: NGT. NPO. Abdominal binder at all times for OOB. Activity as tolerated. Mild anemia and leukocytosis. RLQ BIANCA drain. Log Roll. Mobility and Positioning Recommendations: ?? Min assist of 2 and FWW for transfers, ambulation w/nursing ?? Encourage up in CC for meals as able Subjective: ???I haven't been out of bed for days. Pt states the abdominal binder gives her confidence to increase mobility Objective: Pt seen for therapeutic exercise, functional mobility and gait training in collaboration w/OT Vital Signs: At Rest With Activity SpO2 (RA) 98% 99% HR 90 99 Mental Status: alert, able to follow commands, motivated to increase mobility Skin: Abdominal binder over abd: drain in place Bed Mobility: Pt able to log roll side to side w/cueing, pt using bedrail Sidelying to Sit: min assist and cueing Transfers: Sit to Stand: min assist and cueing from elevated bed to FWW Contact guard and cueing to stand from commode Stand to Sit: min assist to contact guard and cueing, pt tending to sit prematurely x1 Gait: amb ~8 steps bed>commode, ~34' commode to bed w/FWW, min assist to contact guard Balance: Pt able to maintain unsupported sitting balance EOB; able to maintain standing balance w/FWW, min assist to contact guard Educated sister and pt in roles of PT/OT. Assessment: Pt demonstrated marked improvement in mobility and activity tolerance. She is alert, responding accurately to instructions/questions. Will benefit from rehab stay prior to discharge home w/her sister's help Goals: To be met by 01/27/19 1. Logroll side><side w/out using bedrail 2. Sidelying>< sit with log roll, binder and supervision 3. Sit<>stand w ith FWW and abdominal binder with supervision 4. Gait 120' with FWW and binder, contact guard 5. Amb up/down 3 stairs w/two rails and contact guard . Plan: for therapy including balance training, bed mobility training, gait training, patient/family education, range of motion, stair training, strengthening and transfer training. Patient/family understand and agree with plan as stated above. Time IN / OUT: 9035-7551 NAOMI LY, PT Pager: [phone] Physical Therapy Inpatient Rehabilitation Department Consult Note - Kadi Rey RN - 01/14/2019 10:07 AM EDT Certified Wound Care Nurse Rounding Note Rounded on patient, discussed patient with RN. Reviewed assessment of all bony prominences and underdevices for pressure ulcer development, ability to turn/reposition and if there are any barriers dueto patient condition for routine care, turning schedules and or pressure ulcer prevention. Issues/concerns identified: RN had just changed patient and applied Z-Guard. States patient's skin is red but intact perianally. Parient had a Flexiseal when in the ICU and had leaking around it, stillhas some diarrhea. RN states patient states that the area is getting better with Z-Guard. Current Wound Care Recommendations in place/reviewed? Refer to adult/pediatric pressure ulcer prevention job aid in the clinical policy library highlighting the following points: Moisture: Follow a bowel and bladder schedule for incontinent patients and document. Cleanse skin gently after each incontinence episode with Shield Barrier wipes. Apply Z-Guard Skin Protectant Paste to perineal skin bid and prn. Consider use of a fecal incontinence containment device. Assess skin for fungal infections, notify provider. Use disposable air pads (white chux) to maintain dry skin and prevent fungal infections. Avoid adult diapers except when patient is out of bed to ambulate or in a chair. RN verbalized understanding and denied any skin/wound care issues. Discussed with RN: Britt Plan of Care - Kurt Starkey RN - 01/14/2019 5:42 AM EDT Problem: Patient Care Overview Goal: Plan of Care Review Outcome: Ongoing (Interventions Implemented as Appropriate) 01/09/19 0628 01/13/19 1690 Plan of Care Review Progress progress toward functional goals is gradual -- Coping/Psychosocial Plan Of Care Reviewed With -- patient OUTCOME EVALUATION NOTE: OUTCOME SUMMARY: Patient AOx4 and much more lucid than the previous night. Patient complained of abdominal soreness overnight. 5 mg PO oxy given x1 with good effect. Patient voiding large amounts of urine following zheng removal. Patient able to ring when due to void however unable to accurately measure urine output as bedpan not collecting urine appropriately. Respiratory therapist at bedside and placed pt on CPAP. During night, patient removed CPAP as air was blowing in her eyes. IV cefepime and flagyl given. Small amount of sanguineous drainage from BIANCA drain. No other issues. Will continue to monitor and notify MD of any changes. PLAN MOVING FORWARD: Pain management, IV abx, awaiting staple removal INDIVIDUALIZED FALL PREVENTION INTERVENTIONS: Patient-specific fall risk factors per assessment: [current deficits]: Generalized weakness, medicalequipment, obesity Assistance [level of assistance required for transfers and ambulation]: bedfast Supervision [direct monitoring required during toileting and ADLs]: Hands on Surveillance [continuous indirect monitoring]: Call leigh within reach, hourly rounding, room closet to nursing station, bed alarm set Patient-specific fall prevention interventions for sensory deficits provided, if applicable: [X] N/A CPG GOAL OUTCOME EVALUATION: Plan of Care - Britt Hall RN - 01/13/2019 6:03 PM EDT Problem: Patient Care Overview Goal: Plan of Care Review Outcome: Ongoing (Interventions Implemented as Appropriate) 01/09/19 0628 01/13/19 0900 Plan of Care Review Progress progress toward functional goals is gradual -- Coping/Psychosocial Plan Of Care Reviewed With -- patient OUTCOME EVALUATION NOTE: OUTCOME SUMMARY: Pt is alert, confused, answers all oriented questions, intermittently confused, VSS, on RA. Pt complained of no pain, scheduled IV ABX given, scheduled meds given, BG monitored, coverage given as needed, BG mostly in the 200s. Mg was 0.64, 2g IV Magnesium Sulfate given, potassium was 3.2, Kayciel 40mEq given, Phosp was 2.1, Neutra phos increased to 3g QID, started on Gabapentin 100mg TID, Lisinopril 5mg daily, PRN Nebs ordered, given x1 with good effect. BIANCA drained 45ml, serosanguinous output. Flexidiscontinued, pt asking for bedpan, Zheng discontinued at 1725, due to void by 2124. Pt is currentlyin bed, bed alarm on, call light within reach, safety maintained. PLAN MOVING FORWARD: IV ABX, PT/OT, Monitor BG, Monitor Electrolytes INDIVIDUALIZED FALL PREVENTION INTERVENTIONS: Patient-specific fall risk factors per assessment: [current deficits]: IV site, Masimo, BIANCA drain, confusion Assistance [level of assistance required for transfers and ambulation]: 2 Assist Supervision [direct monitoring required during toileting and ADLs]: Hands on Surveillance [continuous indirect monitoring]: Safety checks, bed alarm on, call light within reach,fall prevention maintained Patient-specific fall prevention interventions for sensory deficits provided, if applicable: [X] N/A CPG GOAL OUTCOME EVALUATION: Plan of Care - Barbara Lopez, REGISTERED DIETICIAN - 01/13/2019 4:22 PM EDT Speech Therapy Note Patient Profile: ID: Blossom Pacheco??is a 58 y.o.??female??with shock of unknown etiology. Underwent negative ex-lap on 01/05/19, left with open abdomen, now 6 Days Post-Op s/p closure with resection of ~80cm of chronically dilated small bowel on 01/07/19. Subjective: Pt reported to be agitated overnight, required medication, this PM sleepy but coherent. No I am fine with the softer diet, I don't think I want to try anything harder right now. Objective: Pt seen for dysphagia management and demonstrated the following: Dietary note states wondering if pt might be ready for diet upgrade from dysphagia soft, regular liquids. Pain: pt denies, drowsy Respiratory Status: Room air Current Diet: Dysphagia Soft Diet Feeding / Oral Care Status: Pt requires cues / assistance when sleepy or agitated; AMS fluctuating but improving overall Cognitive-Linguistic Status: drowsy Command Following: Follows single step commands Education: Pt offered trial to advance diet which she declined at present. Pt declined offers of food/drink at this time. I'm sorry, I'm just sleepy. Assessment: Pt was seen today for a follow-up REGISTERED DIETICIAN visit to determine if diet upgrade was appropriate. Pt not currently interested in diet upgrade. Pt will benefit from continued therapeutic interventions to achieve therapy goals. Diagnosis: fluctuating AMS, clearing; appears likely to be able to ADAT when more consistently A&Ox4 Recommendations: Diet: Dysphagia soft, Thin liquids PO medications: whole with sip of water Aspiration Precautions: Feed only when alert Upright position during meals and for at least 30 mins following Check oral cavity frequently for pocketing Excellent oral care Speech Therapy Goals: Pt will tolerate least restrictive diet without evidence of dysphagia / aspiration. Pt / caregiver will be independent with aspiration precautions, diet modifications, and safe swallowing strategies. Plan: Therapy Frequency: 1-3 times/wk Pt./family are in agreement with treatment plan. Total Evaluation Minutes, Speech Language Pathology: 8 Barbara Lopez MA, CCC-REGISTERED DIETICIAN Pager: [phone] Speech-Language Pathology Inpatient Rehabilitation Medicine Plan of Care - Kurt Starkey RN - 01/13/2019 6:25 AM EDT Problem: Patient Care Overview Goal: Plan of Care Review Outcome: Ongoing (Interventions Implemented as Appropriate) 01/09/19 0628 01/12/19 7851 Plan of Care Review Progress progress toward functional goals is gradual -- Coping/Psychosocial Plan Of Care Reviewed With -- patient OUTCOME EVALUATION NOTE: OUTCOME SUMMARY: Patient AOx4 with regard to orientation questions but patient showed signs of a intermittent confusion, MD aware. Patient also voicing frustration and stated, I want to go home. Help me leave. Patient repeatedly attempted to get out of bed. 2 mg oral haldol given x1 with moderate effect. Upon ausculation inspiratory and expiratory wheezes heard, MD notified. Patient received a one time duoneb with poor effect. Patient also received 2g IV cefepime and 500 mg IV flagyl. BIANCA draining small amounts of sanguineous drainage. Dressing changed around BIANCA. ABD pad also placed over abdominal incision. Zheng in place, good urine output. Flexiseal also in place. Stool continues to appear liquid. Moderate amounts of stool leaking from flexi; patient placed on side to assist with draining. Will continue to monitor and notify MD of any changes. PLAN MOVING FORWARD: Monitor agitation, IV abx, pain management INDIVIDUALIZED FALL PREVENTION INTERVENTIONS: Patient-specific fall risk factors per assessment: [current deficits]: Generalized weakness, abdominal surgery, zheng/flexi, medical equipment Assistance [level of assistance required for transfers and ambulation]: bedbound Supervision [direct monitoring required during toileting and ADLs]: Hands on Surveillance [continuous indirect monitoring]: Call leigh within reach, hourly rounding, room close to nursing station, bed alarm set Patient-specific fall prevention interventions for sensory deficits provided, if applicable: [X] N/A CPG GOAL OUTCOME EVALUATION: Plan of Care - Britt Hall RN - 01/12/2019 5:55 PM EDT Problem: Patient Care Overview Goal: Plan of Care Review Outcome: Ongoing (Interventions Implemented as Appropriate) 01/09/19 0628 01/12/19 0827 Plan of Care Review Progress progress toward functional goals is gradual -- Coping/Psychosocial Plan Of Care Reviewed With -- patient OUTCOME EVALUATION NOTE: OUTCOME SUMMARY: Pt is alert, confused, oriented to person, intermittently to place, disoriented to time and situation. VSS, on RA. Pt complains of no pain. Start of shift, insulin drip was running at 2.15units, increased to 2.65units after a 183 BG, and then increased to 3.15units after BG of 221. Around noon, patient pulled out both IVs, which had insulin drip and D5 w/ 1/2 NS running. notified, pt experiencing delirium, refused all PO meds, tried to give oral Haldol, pt refused. All ABX changed to PO, pt refused. IVF and IV insulin drip d/c'ed, POCT QID, with SS and long acting, . One IV placed, labs drawn, SS coverage and Lantus given. Zheng care done, good output, Flexi in place, draining, leaking around the Flexi. BIANCA drain, draining serosanguinous output. Pt wanting to go home, trying to get OOB. Pt is currently in bed, bed alarm on, call light within reach, safety maintained. PLAN MOVING FORWARD: ABX, BG management, confusion INDIVIDUALIZED FALL PREVENTION INTERVENTIONS: Patient-specific fall risk factors per assessment: [current deficits]: IV site, Masimo, confusion, agitation, Zheng, Flexi, BIANCA drain Assistance [level of assistance required for transfers and ambulation]: 2 Assist Supervision [direct monitoring required during toileting and ADLs]: Hands on Surveillance [continuous indirect monitoring]: Safety checks, call light within reach, bed alarm on,fall prevention maintained Patient-specific fall prevention interventions for sensory deficits provided, if applicable: [X] N/A CPG GOAL OUTCOME EVALUATION: Plan of Care - Emely Dominguez OT - 01/10/2019 2:36 PM EDT Occupational Therapy Evaluation Patient profile: Blossom Pacheco is a 58 y.o. female admitted on 01/04/[address] Andria Pena III, MD for SBO and septic shock. Pt was transferred from an OSH. Pt underwent an exploratory lap with abdomen left open and pt intubated, 01/04/19. Underwent 2nd Exploratory lap, 01/07/19, for SB resection and reduction of hernia. Pt in afib, in the ED only. Extubated 01/08/19. Pt with 2 recent kidney surgeries, 09/2018. Pt in the ICU but being moved to the [facility]. Social History: Home set-up: One floor apartment. Lives alone and drives. Has a sister, in [place], who is her biggestsupport. Bathroom Set-up: Tub/shower with a seat Stairs: 5 with 2 railings to support her Baseline Mobility: Pt uses a rollator, but cane in bedroom, bathroom and kitchen, where her rollatordoes not fit Equipment at home: Rollator, cane, commode, tub seat Fall history: yes Precautions/Special Considerations: NGT. NPO. Abdominal binder at all times for OOB. Activity as tolerated. Mild anemia and leukocytosis. RLQ BIANCA drain. Log Roll. Subjective: Its hard for me to get into the shower, I have to step over the tub & then sit on the stool Objective: Seen today for OT evaluation. Cognitive Status/Behavior: ?? Behavior / Mood: lethargic throughout session but able to attend to tasks & questions ?? Alert and oriented to: person, place, time and situation ?? Follows commands: 1 step and 100% of the time ?? Attention: WFL, distractible and difficulty attending to task/directions, cues to redirect ?? Safety awareness: decreased insight into deficits ?? Pt fatigued throughout session, requiring max cues/encouragement for participation Vision & Perception: WNL/WFL Communication: WFL Range of motion, strength, coordination: Hand dominance: right Bilateral UEs are within functional limitations, able to raise UE's against gravity to full shoulder flexion, elbow flexion/extension WFL, wrist & hands functional Sensation: Pt lacks sensation below knees d/t neuropathy Activities of Daily Living: Self-feeding: set up A on tray table in bed-chair position or seated in bedside chair Grooming: set up A on tray table in bed-chair position or seated in bedside chair Dressing: max A for LB dressing (socks & shoes) pt reports independence at home using LH sightseeing guide& sock aide Bathing: not tested, anticipate max A for transfer & mod A for UB/LB bathing Toileting: not tested but anticipate max A x 2 transfer to commode & max A for hygiene (did not try standing or transfer today) Functional Mobility: Supine to sit: max A x 2 and instruction for log roll technique Sit to stand: able to complete partial squat/stand with max A x 1 to scoot towards HOB Ambulation: deferred Stand to sit: deferred Sit to supine: max A x 2 and instruction for log roll technique Balance: Sitting balance: initially requiring max A to establish & maintain seated position EOB, progressively decreased level of assist to cgA Standing balance: not tested Endurance: Fatigued very quickly after sitting EOB approx 12 minutes, fell asleep upon returning to supine (? Drowsiness related to meds) Vitals: 164/90, 92 HR, 95% Pain: 8/10 using faces scale (abdomen) Skin: Abdominal incision & BIANCA drain Education: patient have been educated on Role of occupational therapy/rehabilitation, Transfers, Adaptive equipment training, ADL, Positioning, Safety, Functional Mobility, Activity pacing/Energy conservation, Balance, Recommendations and Discharge planning and verbalizes understanding. Patient status, treatment, and mobility recommendations discussed with nursing. Assessment: Pt has been seen for occupational therapy evaluation. Blossom Pacheco presents with the following performance skill deficits and client factors: increased pain, decreased activity tolerance, decreased flexibility/ROM, decreased sitting/standing balance, body habitus, deconditioning and compromised mobility status. These performance deficits have led to activity limitations and participation restrictions in the following areas of occupation: dressing, bathing, grooming, toileting, self-feeding, transfers/mobility, home management, work, leisure and community mobility. Pt tolerated sitting EOB with max A x 2 initially, progressed to cgA once balance established and with verbal/gestural cues. Pt with significantly impaired activity tolerance and endurance, fatiguing after 12 minutes and then falling asleep upon returning to supine. Anticipate pt will benefit from inpatient rehab stayprior to returning home. Sister present and supportive throughout session. Pt would benefit from further inpatient OT interventions to address performance deficits and maximize participation and independence with occupations of daily living. Anticipated Discharge Disposition: inpatient rehabilitation facility Other Recommendations: ?? Utilize upright chair position using bed features or transfer to recliner chair as appropriate with mechanical lift ?? Encourage participation in ADL's by providing set up A on tray table and physical assist only as needed Goals: To be achieved by 01/24/19 1. Pt will complete commode transfer with min A & LRD 2. Pt will complete bowel/bladder hygiene with mod A & cues 3. Pt will complete seated/standing grooming tasks at sink with set up A & LRD 4. Pt will sit EOB unsupported completing B UE HEP maintaining good static/dynamic balance 5. Pt will participate in self-care tasks for 20 minutes without cues to maintain PAYAM & attention to task 6. Pt will don/doff LB clothing seated EOB with set up A & cues using LH AE as needed Plan: OT: Therapy Frequency: 2-3 times/wk Planned OT interventions: Role of occupational therapy/rehabilitation, Transfers, Adaptive equipmenttraining, ADL, Exercise, Breathing exercises, Positioning, Functional Mobility, Activity pacing/Energy conservation, Home Management and Discharge planning. Total Evaluation Minutes, Occupational Therapy: 41(eval) 2017 OT Evaluation Code Rationale: ?? Diagnosis & Pertinent Co-Morbidities affecting Plan of Care: see PMHx ?? Occupational Profile & Client History: Brief Expanded Extensive x ?? Assessment of Occupational Performance: 1-3 performance deficits 3-5 performance deficits 5 + performance deficits x ?? Clinical Decision Making: Low Moderate High x Clinical decision making of high complexity using standardized patient assessment instrument and measurable assessment of functional outcome. Pager: [phone] Makenna Dominguez OT #[id number] Occupational Therapy Rehabilitation Department Plan of Care - Jeanie Moulton, PT - 01/10/2019 12:14 PM EDT Physical Therapy Evaluation Patient profile: Blossom Pacheco is a 58 y.o. female admitted on 01/04/[address] Andria Pena III, MD for SBO and septic shock. Pt was transferred from an OSH. Pt underwent an exploratory lap with abdomen left open and pt intubated, 01/04/19. Underwent 2nd Exploratory lap, 01/07/19, for SB resection and reduction of hernia. Pt in afib, in the ED only. Extubated 01/08/19. Pt with 2 recent kidney surgeries, 09/2018. Pt in the ICU but being moved to the ISCU. Patient with the following active problems: Past Medical History: Diagnosis Date ??? Asthma ??? Bowel disease IBS ??? CHF (congestive heart failure) diag 2016 [facility] ??? Chronic lung disease sarcoidosis ??? Chronic [...] failure 'don't know if it's failure ??? 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 Mental health problem ??? Obstructive sleep apnea diag 2007 ??? Osteoma of ear canal ??? Vertigo balance prob,last fall early Jun. Past Surgical History: Procedure Laterality Date ??? PRG ECHOENCEPHALOGRAPH REAL TIME Left 11/07/2018 ULTRASOUND USE (WRVU 0.63) performed by Crow Galvin Jr., MD at [facility] MA[facility] OR ??? PRG [facility]A 09/26/2018 FLUOROSCOPY (WRVU 0.17) performed by Crow Galvin Jr., MD at [facility] MA[facility] OR ??? PRG [facility]A 11/07/2018 FLUOROSCOPY (WRVU 0.17) performed by Crow Glavin Jr., MD at [facility] OR ??? PRG US GUIDE INTRAOP Right 09/26/2018 ULTRASONIC GUIDANCE, INTRAOP (WRVU 1.2) performed by Crow Galvin Jr., MD at [facility] MAIN OR ? ? PRO CYSTO W URETEROSCOPY &/OR PYELOSCOPY, DX Right 09/26/2018 CYSTOURETEROSCOPY, DIAGNOSTIC (WRVU 5.75) performed by Crow Galvin Jr., MD at [facility] OR ? ? PRO CYSTO W URETEROSCOPY &/OR PYELOSCOPY, DX Left 11/07/2018 CYSTOURETEROSCOPY, DIAGNOSTIC (WRVU 5.75) performed by Crow Galvin Jr., MD at [facility] OR ??? PRO CYSTOSCOPY, INSERT URETERAL STENT Right 07/10/2018 CYSTO, STENT PLACEMENT (WRVU 2.82) performed by Viky Sears MD at [facility] OR ??? PRO CYSTOSCOPY, REMV CALCULUS, COMPLIC Right 09/26/2018 CYSTO, REMOVAL OF STENT, FOREIGN BODY, CALCULUS, COMPLICATED (WRVU 5.2) performed by Crow Galvin MD at [facility] MAIN OR ??? PRO CYSTOURETHROSCOPY, URETER CATHETER Right 07/10/2018 CYSTO, RETROGRADE, URETEROPYELOGRAPHY (WRVU 2.37) performed by Viky Sears MD at [facility] OR ??? PRO CYSTOURETHROSCOPY, URETER CATHETER Right 09/26/2018 CYSTO, RETROGRADE, URETEROPYELOGRAPHY, W/PCNL (WRVU 2.37) performed by Crow Galvin Jr., MD at [facility] OR ??? PRO EXPLORATORY OF ABDOMEN N/A 01/05/2019 @EXPLORATORY LAPAROTOMY, WITH/WITHOUT BIOPSY(S) (WRVU 12.54) performed by Ace Henry MD at [facility] OR ??? PRO EXPLORATORY OF ABDOMEN N/A 01/07/2019 @EXPLORATORY LAPAROTOMY, WITH/WITHOUT BIOPSY(S) (WRVU 12.54) performed by Ace Henry MD at [facility] MA[facility] OR ??? PRO FREEING BOWEL ADHESION, ENTEROLYSIS N/A 01/05/2019 @LYSIS OF ADHESIONS, ABD. (WRVU 18.46) performed by Ace Henry MD at [facility] MAIN OR ? ? PRO PERCUTANEOUS NEPHROSTOLITHOTOMY/PYELOSTOLITHOTOMY > 2 CM Right 09/26/2018 NEPHROLITHOTOMY, (PCNL) PERCUTANEOUS, OVER 2CM (WRVU 23.5) performed by Crow Galvin Jr., MD at [facility] MA[facility] OR ? ? PRO PERCUTANEOUS NEPHROSTOLITHOTOMY/PYELOSTOLITHOTOMY > 2 CM Left 11/07/2018 NEPHROLITHOTOMY, (PCNL) PERCUTANEOUS, OVER 2CM (WRVU 23.5) performed by Crow Galvin Jr., MD at [facility] MA[facility] OR ? ? PRO PLNY NEPHROSTOMY CATH PRQ NEW ACCESS RS&I Right 09/26/2018 NEPHROSTOMY CATHETER, PERC, INC DX NEPHROSTOGRAM/URETEROGRAM, IMG GUIDANCE (WRVU 4.25) performed byCrow Galvin Jr., MD at [facility] MA[facility] OR ? ? PRO PLMT NEPHROSTOMY CATH PRQ NEW ACCESS RS&I Left 11/07/2018 NEPHROSTOMY CATHETER, PERC, INC DX NEPHROSTOGRAM/URETEROGRAM, IMG GUIDANCE (WRVU 4.25) performed byCrow Galvin Jr., MD at [facility] MA[facility] OR ??? PRO RENAL ENDOSCOPY, TREATMENT Left 11/07/2018 RENAL ENDOSCOPY W\FULG, W\WO\BX, VIA NEPHROSTOMY (WRVU 6.61) performed by Crow Galvin Jr., MD [facility] OR ??? PRO RESECT SMALL INTEST, SINGL RESEC/ANAS N/A 01/07/2019 @BOWEL RESECTION, SMALL INTESTINE SINGLE ANASTOMOSIS (WRVU 20.82) performed by Ace Henry MD at [facility] OR Social History: Home set-up: One floor apartment. Lives alone and drives. Has a sister, in [place], who is her biggestsupport. Bathroom Set-up: Tub/shower with a seat Stairs: 5 with 2 railings to support her Baseline Mobility: Pt uses a rollator, but cane in bedroom, bathroom and kitchen, where her rollatordoes not fit Equipment at home: Rollator, cane, commode, tub seat Fall history: yes Precautions/Special Considerations: NGT. NPO. Abdominal binder at all times for OOB. Activity as tolerated. Mild anemia and leukocytosis. RLQ BIANCA drain. Log Roll. Mobility and Positioning Recommendations: ?? Bed<>chair with overhead lift until strong enough to stand with 2 and support of FWW. ?? Please encourage intermittent use of bed/chair position, sitting EOB with 2 support and OOB to a chair via mechanical lift Subjective: ???I am so tired.?? Sister present and answers questions when needed. Sister has been helping pt more at home, since kidney surgeries. Mona, her sister is a retired nurse. Objective: Pt seen for evaluation today. Pain: Number Location At rest 0/10 - With activity 0/10 - Vital Signs: At Rest With Activity SpO2 (RA) 96% 96% BP (MAP) 167/72 171/74 HR 93 110 Mental Status: confused, drowsy and orientated to self and sister. Gave social set up of home with support of sister. Very delayed in verbal and physical responses. Not following directions consistently. Skin: Abdominal binder over abdominal incision. Musculoskeletal: ROM: BUE AROM grossly wfls. Can sit EOB with hips, knees and ankle obtaining 90 degrees. LLE with more limited AROM, supine. Strength: See OT notes for UEs. Pt could partially SLR BLEs a few inches off the bed. R DF 4/5, L DF4-/5. 4/5 B PF. Initially leaning and pushing posteriorly with trunk, sitting EOB Sensation: Neuropathy BLEs Bed Mobility: Supine to Sit: Mod assist of 2, log rolling L Sit to Supine: mod assist of 2, log rolling L Transfers: Sit to Stand: Partial squat stand, max assist of 1 Stand to Sit: Partial stand to sit, max assist of 1 Bed to Chair: NE Pt scooted self to get higher to head of bed, 4-5x, mod to max assist, moving on count of 3. Balance: Pt sat EOB with 2 mod to max assist initially. This slow improved with verbal and manual cues, to needing cga. Poor partial standing balance. Educated sister and pt in roles of PT/OT. Pt sat EOB ~12+ minutes. Pt very tired after co treat with OT/PT and closed eyes when back in bed. Mod to max assist of 2 to slide pt up bed, pt in hooklying. Mona Robertson, present throughout rehab session. Left sitting in partial chair position in the bed. Assessment: Pt seen for PT/OT co treatment. Pt is a high complexity pt given above stated impairments; acute on chronic medical conditions; obesity; home and social concerns; recent acute kidney issueswith recent surgeries; hypertension; and metabolic imbalances. Expect slow recovery with need for inpt rehab to maximize functional recovery to home with VNA/family support. Sister can not assist pt physically due to back injury. Nurses can continue to sit EOB with 2 assist and make attempt at standing with a FWW. Likely will need a mechanically lift bed<>chair and intermittent chair position in bed, until stronger. PT to follow up early next week. Goals: To be met by 01/27/19 1. Pt to follow post op restrictions with all activity 2. Supine to and from sit with log roll, binder and min assist 3. Sit<>stand with FWW and abdominal binder, min assist 4. Gait 50' with FWW and binder, min assist 5. Prevent loss of skin integrity 6. Pt using IS >1000 ml Plan: Therapy Frequency: 2-4 times/wk for therapy including balance training, bed mobility training,gait training, patient/family education, range of motion, stair training, strengthening and transfertraining. Patient/family understand and agree with plan as stated above. 2017 PT Evaluation Code Rationale: ?? Diagnosis & Pertinent Co-Morbidities, personal factors, and present illness affecting Plan ofCare: (see above); Additional personal factors or co- morbidities that impact plan: ?? Total # of Factors: 0 1-2 3+ x ?? Examination of body system impairments, functional limitations and behaviors, and/or participation restrictions. Addressing 1-2 elements Addressing 3 + elements Addressing 4 + elements x ?? Clinical presentation: See assessment above. Stable/Uncomplicated Evolving/Fluctuating Symptoms Unstable/Unpredictable x ?? Clinical decision making of high complexity based on pt's functional performance as outlined in this evaluation. Time IN / OUT: 3688-7472 Total Evaluation Minutes, Physical Therapy: 41(EV, high and TEF) JEANIE MOULTON, PT Pager: [phone] Physical Therapy Inpatient Rehabilitation Department Plan of Care - Tara Welch RN - 01/09/2019 7:01 PM EDT Problem: Patient Care Overview Goal: Plan of Care Review 01/09/19 1276 Coping/Psychosocial Plan Of Care Reviewed With patient Pt downgraded to ISCU but remains in ICU. Trickle feeds trialed and tolerated. Fentanyl drip dc'd, zheng dc'd. Pt weak and bed bound with rails up. Low fall risk. Plan of Care - Barbara Lopez, ERIC - 01/09/2019 12:25 PM EDT Speech Therapy Bedside Swallow Evaluation Patient Profile: Blossom Pacheco is a 58 y.o. female admitted on 01/04/2019 Blossom Pacheco??is a 58 y.o.??female??with shock of unknown etiology, who underwent negative ex-lap on 01/05/19, left with open abdomen, now POD#2??s/p resection of ~80cm of chronically dilated small bowel and primary closure on 01/07/19. She continues to have??ongoing??fevers and worsening leukocytosis??of unclear etiology. At this point her abdominal exam remains benign and she has started moving her bowels. Given ongoing confusion, would recommend starting trophic tube feeds and checking residuals to ensure no aspiration event occurs. Prior Level of Swallow Function: WNL Subjective: Pt alert, easily distracted, c/o nausea. RN notes trickle TF just started. RN gave one oral med crushed via NG earlier, states all current oral meds are either crushable or in liquid form so can go through NG. Objective: Pt seen for evaluation today. PO trials limited to clears as per MD and limited in amountto ice chips as per pt preference due to nausea. Pain: pt c/o abdominal pain w/ any movement; pt does not wish HOB up higher than 30 degrees for thisreason Respiratory Status: Nasal canula 2 L/min Vision: WFL per pt Hearing: WFL Current Diet: NPO diet (Hold Meds) Feeding / Oral Care Status: Pt is dependent Cognitive-Linguistic Status: alert but disoriented, poor abilty to sustain focus on topic noted Follows Commands: Follows single step commands, Requires increased time to complete, Requires repetition Positioning: HOB at approximately 30 degrees Oral / Laryngeal Mechanism Clinical Assessment: ?? Lingual: ROM WFL; tongue coated white; spoke w/ RN about starting meds for thrush ?? Labial / Buccal: WFL ?? Velar: WFL ?? Sensation: WFL; pt c/o some sore throat (? Thrush vs NG tube) ?? Vocal fold function and airway protection: Voice quality WFL, pt about to cough and clear throat upon command ?? Mucosa: WFL ?? Dentition: present and adequate Bolus Presentation(s) ?? Ice chips , pt refusing all other offers at this time Oral Preparatory Phase ?? Mastication: Pt able to chew ice chips w/o difficulty ?? Oral Transit: WFL ?? Bolus Cohesion: WFL ?? Labial Seal / Loss: WFL ?? Oral Stasis: WFL Pharyngeal Phase ?? Laryngeal Elevation: WFL ?? Vocal quality change: none ?? Cough / throat clear: none ?? Pt. complaint of food getting stuck: none ?? PO trials limited due to increased c/o nausea even w/ small amounts ice chips ?? Respiratory rate and respiratory swallow pattern: No change Esophageal Phase ?? NA, trials too limited to assess Compensatory Techniques: Pt was unable to return demonstrate effective use of strategies secondary to current mental status Discussed w/ pt benefit of HOB higher for PO intake, however pt states she is unable to tolerated this right now given abdominal pain and nausea. Education: Patient, Family educated on results and recommendations, and verbalized understanding. Patient status, treatment and swallow recommendations were discussed with nursing. Assessment: Limited to small, single ice chips given pt c/o nausea and refusal of other offers at this time. No overt s/s oral or pharyngeal dysphagia noted w/ these trials, however. S/s oral Thrush noted. AMS. . Diagnosis: pt tolerating small, single ice chips w/o overt s/s dysphagia at this time; further assessment and clearance from sugery needed to progress diet past sips and chips; pt w/ NG tube functioning at this time for medications Recommendations: Diet: ice chips and swabs for comfort; NG tube feeds as per MD PO medications: crush and give via NG Aspiration precautions: Supervision needed for all meals Feed only when alert Reduce environmental distractions Needs verbal cues to use recommended strategies Upright position during meals and for at least 30 mins following Small sips and bites while eating Slow rate; swallow between bites Excellent oral care Pt would benefit from skilled REGISTERED DIETICIAN services to maximize swallow function and safety while in the hospital and to address limitations as noted above. Speech Therapy Goals: (To be met by discharge) Pt will tolerate least restrictive diet without evidence of dysphagia / aspiration. Pt / caregiver will be independent with aspiration precautions, diet modifications, and safe swallowing strategies. Plan: Therapy Frequency: 2-4 times/wk Pt./family are in agreement with treatment plan. Total Evaluation Minutes, Speech Language Pathology: 32 Thank you for this consult with this patient. Please feel free to page me with any questions or concerns. Barbara Lopez MA, [facility]-REGISTERED DIETICIAN Pager: [phone] Speech-Language Pathology Inpatient Rehabilitation Medicine Plan of Care - Ted Herrera, BRYAN - 01/09/2019 6:29 AM EDT Problem: Patient Care Overview Goal: Plan of Care Review Outcome: Ongoing (Interventions Implemented as Appropriate) 01/09/19 0628 Plan of Care Review Progress progress toward functional goals is gradual Coping/Psychosocial Plan Of Care Reviewed With patient Patient remains on insulin and fentanyl gtts. Room air. 60 MeQ of KCL to be given this AM for potassium of 2.9. IV lasix given overnight, patient diuresed over 2L. Plan of Care - Awilda Kelly RN - 01/08/2019 5:58 PM EDT Problem: Patient Care Overview Goal: Plan of Care Review Outcome: Ongoing (Interventions Implemented as Appropriate) 01/06/19204401/08/19 0800 Plan of Care Review Progress progress toward functional goals is gradual -- Coping/Psychosocial Plan Of Care Reviewed With -- patient;sibling ?? OUTCOME EVALUATION NOTE: ?? OUTCOME SUMMARY: Intubated this am, Continued on Fent at 50mcg, Prop at 10-30 and Dex at 1. VSS, hemodynamically stable. Continued to be febrile throughout the shift, TMAX 38.8. ABX continued and scheduled Tylenol provided. Abdominal wound vac dressing remained intact with abdominal binder in use. Extubated at 12:45, tolerating 5L NC well. Continued Fentanyl at 25mcg post extubation. Drain output <50 today. Sisterremained at bedside throughout the day. Taken to OR at 1530. [facility]ending [facility]. ?? PLAN MOVING FORWARD: Plan to be determined after arrival from OR. ?? INDIVIDUALIZED FALL PREVENTION INTERVENTIONS: ?? Patient-specific fall risk factors per assessment: [current deficits]: Intubation and Sedation ?? Assistance [level of assistance required for transfers and ambulation]: Hands on ?? Supervision [direct monitoring required during toileting and ADLs]: 2-3 assist ?? Surveillance [continuous indirect monitoring]: Room near RN station, garzon monitor ?? Patient-specific fall prevention interventions for sensory deficits provided, if applicable: [X] Yes ? CPG GOAL OUTCOME EVALUATION: ? Plan of Care - Tammi Truong RN - 01/08/2019 4:41 AM EDT Problem: Patient Care Overview Goal: Plan of Care Review Outcome: Ongoing (Interventions Implemented as Appropriate) 01/06/19204401/07/191999 Plan of Care Review Progress progress toward functional goals is gradual -- Coping/Psychosocial Plan Of Care Reviewed With -- patient;sibling OUTCOME EVALUATION NOTE: OUTCOME SUMMARY: PERRLA, sedated/intubated in VC with fi02 30%. NSR with HR 60s, MAPs >65, tmax 39.4- tylenol, fanand ice packs placed-team aware. No BM over night. Decrease in UOP over night, lasix given with goodoutput. PLAN MOVING FORWARD: Wean sedation as tolerated. Wean 02 requirements as tolerated. Continue abx and monitor closely. INDIVIDUALIZED FALL PREVENTION INTERVENTIONS: Patient-specific fall risk factors per assessment: [current deficits]: IV lines/drains, generalized weakness. Assistance [level of assistance required for transfers and ambulation]: 2 person assist. Supervision [direct monitoring required during toileting and ADLs]: Alarms set/audible, room near unit station, routine safety checks, call leigh within reach, bed in lowest position. Surveillance [continuous indirect monitoring]: ICU Garzon. Patient-specific fall prevention interventions for sensory deficits provided, if applicable: [X] Yes CPG GOAL OUTCOME EVALUATION: Goal: Fall Prevention-Safe Patient Handling Outcome: Ongoing (Interventions Implemented as Appropriate) 01/07/19183601/07/19199901/08/19 0400 Restraint Interventions Safety Promotion/Fall Prevention -- -- safety round/check completed;fall prevention program maintained Activity Activity Type -- -- bedrest Activity Assistance Provided -- -- assistance, 2 people Positioning Body Position foot of bed elevated -- -- Francois Fall Risk History of Falling -- 0 -- Secondary Diagnosis -- 15 -- Ambulatory Aids -- 0 -- Intravenous Therapy/Heparin/Saline Lock -- 20 -- Gait/Transferring -- 0 -- Mental Status -- 15 -- Score -- 50 -- OTHER Francois Fall Risk -- High -- Goal: Infection Control Outcome: Ongoing (Interventions Implemented as Appropriate) 01/07/19199901/08/19 0400 Safety Interventions Isolation Precautions -- standard precautions maintained Infection Prevention environmental surveillance performed;equipment surfaces disinfected;rest/sleep promoted;single patient room provided -- Coping Strategies Supportive Measures positive reinforcement provided;relaxation techniques promoted -- Goal: Discharge Needs Assessment Outcome: Ongoing (Interventions Implemented as Appropriate) 01/06/192044 Discharge Needs Assessment Concerns To Be Addressed no discharge needs identified Goal: Interdisciplinary Rounds/Family Conf Outcome: Ongoing (Interventions Implemented as Appropriate) 01/06/192044 Interdisciplinary Rounds/Family Conf Participants nursing Problem: Ventilation, Mechanical Invasive (Adult) Goal: Signs and Symptoms of Listed Potential Problems Will be Absent, Minimized or Managed (Ventilation, Mechanical Invasive) Signs and symptoms of listed potential problems will be absent, minimized or managed by discharge/transition of care (reference Ventilation, Mechanical Invasive (Adult) CPG). Outcome: Ongoing (Interventions Implemented as Appropriate) 01/06/190 Ventilation, Mechanical Invasive Problems Assessed (Mechanical Ventilation, Invasive) all Problems Present (Mechanical Ventilation, Invasive) immobility;inability to wean Problem: Sepsis/Septic Shock (Adult) Goal: Signs and Symptoms of Listed Potential Problems Will be Absent, Minimized or Managed (Sepsis/Septic Shock) Signs and symptoms of listed potential problems will be absent, minimized or managed by discharge/transition of care (reference Sepsis/Septic Shock (Adult) CPG). Outcome: Ongoing (Interventions Implemented as Appropriate) 01/06/19 0440 Sepsis/Septic Shock Problems Assessed (Sepsis) glycemic control impaired;hypoxia/hypoxemia;infection progression Problems Present (Sepsis) glycemic control impaired;hypoxia/hypoxemia Problem: Cardiac: Heart Failure (Adult) Goal: Signs and Symptoms of Listed Potential Problems Will be Absent, Minimized or Managed (Cardiac:Heart Failure) Signs and symptoms of listed potential problems will be absent, minimized or managed by discharge/transition of care (reference Cardiac: Heart Failure (Adult) CPG). Outcome: Ongoing (Interventions Implemented as Appropriate) 01/05/19 0400 01/05/19 0804 Cardiac: Heart Failure Problems Assessed (Heart Failure) -- all Problems Present (Heart Failure) cardiac pump dysfunction;decreased quality of life;dysrhythmia/arrhythmia;fluid/electrolyte imbalance;functional decline/self- care deficit;respiratory compromise -- Problem: Skin Integrity Impairment, Risk/Actual (Adult) Goal: Identify Related Risk Factors and Signs and Symptoms Related risk factors and signs and symptoms are identified upon initiation of Human Response Clinical Practice Guideline (CPG) Outcome: Ongoing (Interventions Implemented as Appropriate) 01/05/19 0804 Skin Integrity Impairment, Risk/Actual Skin Integrity Impairment, Risk/Actual: Related Risk Factors infection/disease process;immobility;metabolic imbalance;tissue perfusion impaired;sensory impairment;fluid/nutrition status Signs and Symptoms (Skin Integrity Impairment) increased colony count Problem: Diabetes, Type 2 (Adult) Goal: Signs and Symptoms of Listed Potential Problems Will be Absent, Minimized or Managed (Diabetes, Type 2) Signs and symptoms of listed potential problems will be absent, minimized or managed by discharge/transition of care (reference Diabetes, Type 2 (Adult) CPG). Outcome: Ongoing (Interventions Implemented as Appropriate) 01/06/192045 Diabetes, Type 2 Problems Assessed (Type 2 Diabetes) all Problems Present (Type 2 Diabetes) hyperglycemia Op Note - Ted Rajan MD - 01/07/2019 6:33 PM EDT Operative Note Patient Name: Blossom Pacheco : 1960 MR#: [id number] Date of Operation: 01/07/2019. Preoperative Diagnosis: shock of unclear etiology, open abdomen Postoperative Diagnosis: same Procedure(s): @EXPLORATORY LAPAROTOMY, WITH/WITHOUT BIOPSY(S) [facility]): @BOWEL RESECTION, SMALL INTESTINE SINGLE ANASTOMOSIS ([facility] 20.82): Surgeon(s): Surgeon(s) and Role: * Ace Henry MD - Primary * Ted Rajan MD - Resident Anesthesia: General endotracheal anesthesia Estimated Blood Loss: 50 cc Urine Output:: 100cc Intravenous Fluid: 800 cc Drains/Lines: 19Fr BIANCA in subq Implants: none Specimens: Order Name Source Comment Collection Info Order Time SPECIMEN TO PATHOLOGY bilary colic omentum excision 01/07/2019 4:24 PM Time specimen removed from patient: 4:23 PM Number of tissue samples (in container) 1 SPECIMEN TO PATHOLOGY biliary colic s/p ex lap small bowel implant r/o neoplasm excision YES, Please perform frozen section 01/07/2019 4:29 PM Number of tissue samples (in container) 1 Time specimen removed from patient: 4:28 PM SPECIMEN TO PATHOLOGY biliary colic s/p ex lap small bowel excision 01/07/2019 5:00 PM Time specimen removed from patient: 5:00 PM Number of tissue samples (in container) 1 Indications for Procedure: Blossom Pacheco is a 58 y.o. female who presents with shock of unknown etiology sp neg exlap, nowwith open abdomen returning to OR for re-exploration and closure . Operative Findings: 1. Abnormal although not ischemic appearing segment of distal ileum resected with primary stapled anastomosis (80cm) serosal lesion sent for frozen was negative. Procedure in Detail: Blossom Pacheco was brought to the operating room and positioned supine on the operating table, antibiotics were administered, followed by General endotracheal anesthesia anesthesia. The patient's abdomen was prepped and draped in the usual sterile fashion. A time out was preformed. We began by removing the Abthera VAC. Omentum was adherent to the abdominal wall, and this was freedwith a combination of sharp and blunt dissection. Ischemic protions of the omentum were resected as was the hernia sac. We then examined the bowel from the LT to the TI. The same segment of distal ileum which was abnormal appearing on the CT scan and first laparotomy was still somewhat dilated although not ischemic appearing. There were some woody lesions on the serosa that were abnormal appearing which we sampled and sent for frozen section. This was negative for malignancy. There was no distinct transition point to the proximal small bowel which was normal appearing and decompressed. The cecum was normal appearing and viable. Due to the unclear etiology of her shock and the abnormal appearance of the small bowl we elected to resect this segment (~80cm) which we did in a standard fashion with stapled side to side anastomosis. The mesenteric defect was closed. We then copiously irrigated the abdomen. The fascia was closed with #1 PDS and the skin was closed with tammy. A 19 Fr. Marco drain was left in the subcutaneous layer. All instrument and gauze counts were correct at the end of the procedure. The patient was awakened from anesthesia without incident and taken safely to the recovery room. Dr. Henry was present and scrubbed for the entire procedure. Disposition: awakened from anesthesia, extubated and taken to the recovery room in a stable condition, having suffered no apparent untoward event. Condition: doing well without problems Ted Rajan MD Associated attestation - Ace Henry MD - 01/08/2019 7:20 AM EDT Attestation: Case Date: 01/07/2019 I was present and I participated during the entire procedure (does not need to include opening and closing). ACE HENRY MD 01/08/2019 Plan of Care - Awilda Kelly RN - 01/07/2019 5:17 PM EDT Problem: Patient Care Overview Goal: Plan of Care Review Outcome: Ongoing (Interventions Implemented as Appropriate) 01/06/19204401/07/19 0800 Plan of Care Review Progress progress toward functional goals is gradual -- Coping/Psychosocial Plan Of Care Reviewed With -- patient;sibling OUTCOME EVALUATION NOTE: OUTCOME SUMMARY: Unable to assess orientation. Withdrawing to pain x4. RASS -2/-3. Continued on Fent at 50mcg, Prop at 10-30 and Dex at 1. VSS, hemodynamically stable. Continued to be febrile throughout the shift, TMAX38.4. ABX continued and scheduled Tylenol provided. Abdominal wound vac dressing remained intact, wound seemingly from vac sponge. Sister remained at bedside throughout the day. Taken to OR at 1530. Pending patient return to [facility]. PLAN MOVING FORWARD: Plan to be determined after arrival from OR. INDIVIDUALIZED FALL PREVENTION INTERVENTIONS: Patient-specific fall risk factors per assessment: [current deficits]: Intubation and Sedation Assistance [level of assistance required for transfers and ambulation]: Hands on Supervision [direct monitoring required during toileting and ADLs]: 2-3 assist Surveillance [continuous indirect monitoring]: Room near RN station, garzon monitor Patient-specific fall prevention interventions for sensory deficits provided, if applicable: [X] Yes CPG GOAL OUTCOME EVALUATION: Plan of Care - Jenna Jin RN - 01/06/2019 8:46 PM EDT Problem: Diabetes, Type 2 (Adult) Goal: Signs and Symptoms of Listed Potential Problems Will be Absent, Minimized or Managed (Diabetes, Type 2) Signs and symptoms of listed potential problems will be absent, minimized or managed by discharge/transition of care (reference Diabetes, Type 2 (Adult) CPG). 01/06/192045 Diabetes, Type 2 Problems Assessed (Type 2 Diabetes) all Problems Present (Type 2 Diabetes) hyperglycemia Plan of Care - Ivan Garcia RN - 01/06/2019 7:34 PM EDT Problem: Patient Care Overview Goal: Plan of Care Review Outcome: Ongoing (Interventions Implemented as Appropriate) 01/06/19 193 Plan of Care Review Progress no change Coping/Psychosocial Plan Of Care Reviewed With patient;sibling OUTCOME EVALUATION NOTE: OUTCOME SUMMARY: Intubated and sedated. Propofol 25, Fent 50, Dex started and titrated to 0.8. Temperatures dropped to 37. Team concerned with continued fever despite scheduled tylenol. CT of abd/chest done After CT wound vac noted to have liquid drainage that was not suctioning. Vac did not detect a leak.Team aware and pg 3009 aware. Insulin gtt increased to 11 and bolused x2 of 8 units. Introducer flushing but not drawing, d/luiz and kink noted in tube. 20 gauge placed in right wrist. PLAN MOVING FORWARD: Transition from dex to propofol. OR tomorrow at 1700 to repair hernia, look for tissue and close bowel. INDIVIDUALIZED FALL PREVENTION INTERVENTIONS: Patient-specific fall risk factors per assessment: [current deficits]: Intubated and sedated, wound vac on midline Assistance [level of assistance required for transfers and ambulation]: Total assist, x2 for turns Supervision [direct monitoring required during toileting and ADLs]: Room near nurse, hourly rounding Surveillance [continuous indirect monitoring]: [facility] ICU, vent alarm Patient-specific fall prevention interventions for sensory deficits provided, if applicable: [X] Yes CPG GOAL OUTCOME EVALUATION: Initial Assessments - Mayela Arriaga RN - 01/06/2019 12:10 PM EDT Office of Care Management Initial Assessment Mayela Arriaga RN reviewed record and discussed patient with Care Team. Source of Information: chart review, [facility]U [facility] 2 and nursing staff Introduced self/reviewed role; services accepted. Reason for Hospitalization: 01/06/2019 Accepted in transfer from [facility] for further management of septic shock with cardiac overlay (cardiomyopathy on ECHO) IP admit order 01/04/19 MD Hossein Chahal (dx: shock) Past Medical History: Diagnosis Date ??? Asthma ??? Bowel disease IBS ??? CHF (congestive heart failure) diag 2017 [facility] ??? Chronic lung disease sarcoidosis ??? Chronic [...] failure 'don't know if it's failure ??? snf current use of opiate analgesic PCP ??? Mental health problem ??? Obstructive sleep apnea diag 2007 ??? Osteoma of ear canal ??? Vertigo balance prob,last fall early Jun. Hospitalizations Within the Past 30 Days: none Anticipated Length Of Stay (If known): Unknown Current Decision-Making Capacity: intubated Advance Care Planning: Code Status: Full Code No Advance Directives on file in eDH. If AD's have not been completed sister Mona Pacheco (cell: [phone]) would be surrogate decision maker per [place] surrogate decision making law. Any patient receiving care at [facility] must abide by [place] law. The hierarchy for surrogate decision making is: (a) Patient???s spouse, or civil union partner or common law spouse unless there is a divorce proceeding, separation agreement, or restraining order limiting that person???s relationship with the patient. (b) Any adult son or daughter of the patient. (c) Either parent of the patient. (d) Any adult brother or sister of the patient. (e) Any adult grandchild of the patient. (f) Any grandparent of the patient. (g) Any adult aunt, uncle, niece, or nephew of the patient. (h) A close friend of the patient. (i) The agent with financial power of defense attorney or a conservator appointed in accordance with RSA 464-A. (j) The guardian of the patient???s estate. Current Coping/Education/Information Needs: Ms. Pacheco's sister, Mona Pacheco, has received clinical updates by the team. It is unclear at this time if wound vac will be needed upon discharge; post- discharge instructions and VNA referral regardless if wound vac is needed. Current Functional Ability: intubated and requiring pressor support Functional Status Prior to Admission: to be assessed Home Environment: apartment dwelling is listed in [place], [place] but more information regarding the living space is needed. Social & Family Supports/Community Resources: family/friends Behavioral Health History: H Depression, PTSD Substance Use/Abuse: former tobacco use--quit 2017; chart review does not reflect current alcohol use/abuse; Current marijuana use; mention of chronic opioid use for pain Other Pertinent/Service Specific Information: to be assessed Health/Prescription Coverage: Primary Insurance: MEDICARE Secondary Insurance: N/A Prescription Coverage: to be assessed Preferred Pharmacy: [facility] in [place], [place] Other: [facility] in [place], [place] Primary Care Provider: Albert Zuleta MD [phone] Patient/Caregiver Goals of Treatment: return hoime Potential Needs for Transition of Care: Rehab/SNF: pending PT/OT recommendations Home Health: referral will be needed to VNA should patient discharge with Wound Vac. Home Health Agency would be [facility] but additional discussion is needed DME: TBD; possible wound vac Dialysis: not anticipated Community Resources: to be determined Transportation: private vehicle Other: to be assessed Anticipated Barriers to Discharge/Special Considerations: to be assessed once patient is extubated and able to participate in d/c planning. Currently, it appears SNF v VNA for care transition will be appropriate Assessment: 58 yo female admitted from OSH for further management of mixed shock of unclear etiology. Her chief complaint was acute abdominal pain and shock. ED bedside ECHO confirmed low EF (Cardi concurred) with emergent surgical intervention (ex lap) on 01/05/19. Wound vac applied in OR with plan for OR return 24-48 hours for washout v closure pending clinical course. Additional information is needed from Ms. Pacheco/family to determine if she will be able to self manage care at home when clinically stable for discharge. Also, she has no secondary insurance coverage but may qualify for [facility] which will provide extra services/resources. Plan: A member of the Care Management team will continue to monitor progress, follow for continuity of care and assist with transition of care planning. Notify [facility] Medicaid Specialist of potential applicant (done;email 01/06/2019 ) Mayela Arriaga RN Pager: [phone] Plan of Care - Jenna Jin RN - 01/06/2019 4:45 AM EDT Problem: Sepsis/Septic Shock (Adult) Intervention: Monitor/Manage Perfusion 01/06/19 0444 Safety Interventions Medication Review/Management medications reviewed Plan of Care - Ivan Garcia RN - 01/05/2019 7:53 PM EDT Problem: Patient Care Overview Goal: Plan of Care Review Outcome: Ongoing (Interventions Implemented as Appropriate) 01/05/19 194 Plan of Care Review Progress improving Coping/Psychosocial Plan Of Care Reviewed With patient;sibling OUTCOME EVALUATION NOTE: OUTCOME SUMMARY: Intubated and sedated. In VC 50%, Propofol at 50 at start of shift, down to 25 per md, but titrated back to 35 d/t restlessness and vent asynchrony. Rass -3 - -4, not following commands. Movement in all extremities. Weaned off pressors and d/c a-line d/t poor waveform. [place] d/c per team, CI 2.2 and agreed with Hong. Phos critically low, team aware and started neutraphos. Troponin and lactate down trending, no longer following. Output from OG and Wound Vac charted. Febrile at 39, down to 38.6, getting scheduled tylenol and ice packs placed. Output in zheng dropped to 40q2h from 55, team aware and gave 60mg lasix Sister at bedside overnight and day, went home to sleep. Insulin gtt down to 8.5 from 15 in AM, BG stable 130-170 for last 6 hrs. PLAN MOVING FORWARD: Retroperitoneal US in AM to evaluate for possible kidney stones. Return to OR to look for necrotic tissue and repair hernia. INDIVIDUALIZED FALL PREVENTION INTERVENTIONS: Patient-specific fall risk factors per assessment: [current deficits]: Intubated, sedated, LDA, wound vac, generalized weakness Assistance [level of assistance required for transfers and ambulation]: Total assist, x2 for turns Supervision [direct monitoring required during toileting and ADLs]: Room near nurse, hourly rounding Surveillance [continuous indirect monitoring]: [facility] ICU, vent alarm Patient-specific fall prevention interventions for sensory deficits provided, if applicable: [X] Yes CPG GOAL OUTCOME EVALUATION: Plan of Care - Albina Barrera RN - 01/05/2019 8:12 AM EDT Problem: Patient Care Overview Goal: Plan of Care Review Outcome: Ongoing (Interventions Implemented as Appropriate) 01/05/19 0200 01/05/19 0804 Plan of Care Review Progress -- no change Coping/Psychosocial Plan Of Care Reviewed With patient -- OUTCOME EVALUATION NOTE: OUTCOME SUMMARY: Patient transferred from ED to ICU 37 for [place]fields Placement. Wedge pressure 11. Catheter at 52. Insulingtt initiated for BG > 500, titrated per protocol. Blood cultures obtained. 500 ml NS bolus given. Transferred to OR. Returned to ICU 37 around 03:30. PA wave form irregular, Provider in to assess, catheter advanced, wedge pressure 20. Catheter at 60. *See Cardiac Calculations at 04:15 ABG obtained, lactate 4, provider aware. Xray obtained for OG placement. Wound vac to abdominal surgical site, scant sanguinous output in tubing at end of shift. Sister and friend spoke with provider, oriented to units visiting protocols. PLAN MOVING FORWARD: WETZEL cultures, Antibiotics, titrate down levophed as able, wean down ventilator settings as able. CPG GOAL OUTCOME EVALUATION: Problem: Ventilation, Mechanical Invasive (Adult) Goal: Signs and Symptoms of Listed Potential Problems Will be Absent, Minimized or Managed (Ventilation, Mechanical Invasive) Signs and symptoms of listed potential problems will be absent, minimized or managed by discharge/transition of care (reference Ventilation, Mechanical Invasive (Adult) CPG). Outcome: Ongoing (Interventions Implemented as Appropriate) 01/05/19399 Ventilation, Mechanical Invasive Problems Assessed (Mechanical Ventilation, Invasive) all Problems Present (Mechanical Ventilation, Invasive) immobility;inability to wean Problem: Sepsis/Septic Shock (Adult) Goal: Signs and Symptoms of Listed Potential Problems Will be Absent, Minimized or Managed (Sepsis/Septic Shock) Signs and symptoms of listed potential problems will be absent, minimized or managed by discharge/transition of care (reference Sepsis/Septic Shock (Adult) CPG). Outcome: Ongoing (Interventions Implemented as Appropriate) 01/05/19 040 Sepsis/Septic Shock Problems Assessed (Sepsis) all Problems Present (Sepsis) glycemic control impaired;hypoperfusion/hemodynamic instability;hypoxia/hypoxemia Problem: Cardiac: Heart Failure (Adult) Goal: Signs and Symptoms of Listed Potential Problems Will be Absent, Minimized or Managed (Cardiac:Heart Failure) Signs and symptoms of listed potential problems will be absent, minimized or managed by discharge/transition of care (reference Cardiac: Heart Failure (Adult) CPG). Outcome: Ongoing (Interventions Implemented as Appropriate) 01/05/19 04001/05/19803 Cardiac: Heart Failure Problems Assessed (Heart Failure) -- all Problems Present (Heart Failure) cardiac pump dysfunction;decreased quality of life;dysrhythmia/arrhythmia;fluid/electrolyte imbalance;functional decline/self- care deficit;respiratory compromise -- Problem: Skin Integrity Impairment, Risk/Actual (Adult) Goal: Identify Related Risk Factors and Signs and Symptoms Related risk factors and signs and symptoms are identified upon initiation of Human Response Clinical Practice Guideline (CPG) Outcome: Ongoing (Interventions Implemented as Appropriate) 01/05/19 0804 Skin Integrity Impairment, Risk/Actual Skin Integrity Impairment, Risk/Actual: Related Risk Factors infection/disease process;immobility;metabolic imbalance;tissue perfusion impaired;sensory impairment;fluid/nutrition status Signs and Symptoms (Skin Integrity Impairment) increased colony count Problem: Diabetes, Type 2 (Adult) Goal: Signs and Symptoms of Listed Potential Problems Will be Absent, Minimized or Managed (Diabetes, Type 2) Signs and symptoms of listed potential problems will be absent, minimized or managed by discharge/transition of care (reference Diabetes, Type 2 (Adult) CPG). Outcome: Ongoing (Interventions Implemented as Appropriate) 01/05/19 0400 Diabetes, Type 2 Problems Assessed (Type 2 Diabetes) all Problems Present (Type 2 Diabetes) hyperglycemia Op Note - Ted Rajan MD - 01/05/2019 3:17 AM EDT Operative Note Patient Name: Blossom Pacheco : 1960 MR#: [id number] Date of Operation: 01/05/2019. Preoperative Diagnosis: shock ? Bowel ischemia Postoperative Diagnosis: shock of unclear etiology Procedure(s): @EXPLORATORY LAPAROTOMY, WITH/WITHOUT BIOPSY(S) ([facility] 12.54): @LYSIS OF ADHESIONS, ABD. ([facility] 18.46): Surgeon(s): Surgeon(s) and Role: * Ace Henry MD - Primary * Ted Rajan MD - Resident Anesthesia: General endotracheal anesthesia Estimated Blood Loss: 100 cc Urine Output:: 150cc Intravenous Fluid: 1500 cc Drains/Lines: abthera vac Implants: none Specimens: * No orders in the log * Indications for Procedure: Blossom Pacheco is a 58 y.o. female who presents with shock of unknown etiology. Acute decompensation without clear cause- concern for bowel ischemia 2/2 incarcerated ventral hernia as driving factor. Plan for exploratory laparotomy. Operative Findings: Open abdomen through prior hernia - no blood-tinged ascites or succus. Encountered adhesive bands between viable small bowel and omentum which were lysed. Ran small bowel from ligament of Treitz to terminal ileum with visualization of viable small bowel throughout, viable appendix/cecum/ascending colon as well as transverse. Given extent of inexplicable shock/sepsis, placed Abthera VAC dressing withplan to return to OR in 24-48 hours for washout vs. Abdominal closure depending on clinical course. ?? Procedure in Detail: Blossom Pacheco was brought to the operating room and positioned supine on the operating table, antibiotics were administered, followed by General endotracheal anesthesia anesthesia. The patient's abdomen was prepped and draped in the usual sterile fashion. A time out was preformed. We began with a midline incision which was carried down to the level of the hernia sac. The sac was then opened with scissors and the incarcerated bowel was examined and appeared to be healthy and viable. We then extended our incision and ran the bowel from the LT to the TI. There were extensive adhesions which were lysed sharply. The proximal small bowel was decompressed and there was no obvious transition point. All of the small bowel appeared viable and healthy. The cecum, appendix, and transverse colon were visualized and appeared healthy. The abdomen was irrigated and hemostasis was achieved. An Abthera VAC was placed and held good suction. All instrument and gauze counts were correct at the end of the procedure. The patient was awakened from anesthesia without incident and taken safely to the recovery room. Dr. Henry was present and scrubbed for the entire procedure. Disposition: awakened from anesthesia, extubated and taken to the recovery room in a stable condition, having suffered no apparent untoward event. Condition: doing well without problems eTd Rajan MD Associated attestation - Ace Henry MD - 01/05/2019 7:24 AM EDT Attestation: Case Date: 01/05/2019 I was present and I participated during the entire procedure (does not need to include opening and closing). ACE HENRY MD 01/05/2019 Brief Op Note - Ace Henry MD - 01/05/2019 3:16 AM EDT Brief Operative Note Patient Name: Blossom Pacheco : [id number] MR#: [id number] Case Date: 01/05/2019 Surgeon: Surgeon(s) and Role: * Ace Henry MD - Primary * Ted Rajan MD - Resident Preoperative diagnosis: bowel ischemia Postoperative diagnosis: bowel ischemia Procedure(s) (LRB): @EXPLORATORY LAPAROTOMY, WITH/WITHOUT BIOPSY(S) ([facility] 12.54) (N/A) @LYSIS OF ADHESIONS, ABD. ([facility] 18.46) (N/A) Anesthesia: Anesthesia type not filed in the log. Findings: Open abdomen through prior hernia - no blood-tinged ascites or succus. Encountered adhesive bands between viable small bowel and omentum which were lysed. Ran small bowel from ligament of Treitz to terminal ileum with visualization of viable small bowel throughout, viable appendix/cecum/ascending colon as well as transverse. Given extent of inexplicable shock/sepsis, placed Abthera VAC dressing with plan to return to OR in 24-48 hours for washout vs. Abdominal closure depending on clinicalcourse. Complications: No immediate. Intake: Intraprocedure Crystalloid Total Lactated Ringers Volume (mL) 1500 mL Transfusion No data found. Output: Estimated Blood Loss: * No values recorded between 01/05/2019 2:04 AM and 01/05/2019 2:50 AM * Urine Output:: (no urine output recorded) Other Output: (no other output recorded) Drains: Abthera - 1 Blue sponge piece placed. Specimens removed during surgery: None Disposition: taken directly to the ICU, intubated and in a critical condition. Condition: Critical Attestation: Case Date: 01/05/2019 I was present and I participated during the entire procedure (does not need to include opening and closing). (Please see the Surgical Encounter Summary for any Implant and Specimen details pertinent to this patient.) Hospital Course - Morales Watt MD - 01/05/2019 12:29 AM EDT 58F transferred from OSH to ED with 2 days of nausea, vomiting, abdominal pain, lactate of 15, and shock. In ED bedside echo suggested very low EF, confirmed by cardiology. Resuscitated, intubated, moved to MICU. CT raise concern for threatened bowel in the setting of an incarcerated ventral hernia. She was taken urgently to the operating room but got ischemia was not revealed. Mixed shock state by right heart catheterization: Cardiac index 2.2, SVR 1200. 01/05/2019: Good urine output and improved oxygenation/pressor requirement Consult Note - Judy Christie MD - 01/04/2019 10:56 PM EDT Cardiology Initial Consultation Note Patient Name: Blossom Pacheco Reason for cardiology consultation/chief complaint: cardiomyopathy History of Present Illness: Blossom Pacheco is a 58 y.o. female with medical history significant for recurrent kidney stones with ureteral stent placed, sarcoidosis (to lungs and skin 1990 and 1992 on prednisone), COPD, MOSES onCPAP, DM, and hyperparathyroidism who presented to an OSH ED with complaints of abdominal pain, found to have incarcerated hernia with metabolic acidosis and elevated lactate (>17) with workup also revealing a new cardiomyopathy for which cardiology is consulted. Patient is intubated and sedated and history is per emergency room physicians. Apparently she presented today to her local emergency ([facility]) room with the complaint of severe abdominal pain. CT scan there revealedpartial small bowel obstruction secondary to incarcerated anterior wall abdominal hernia.Her labs were remarkable as above. She received 1.5L of IVF and was transferred to [facility] ED. In the ED at [facility] she developed acute hypoxic respiratory distress thought to be 2/2 flash pulmonary edema requiring intub ation. Bedside TTE by the ED physician was concerning for reduced ejection fraction for which cardiology was called. Notably, she was seen by cardiology in August of 2018 prior to surgery with Dr. Henry for surgicalrepair of her abdominal wall hernia. She was referred for TTE which showed normal EF and nuclear stress which revealed moderate ischemia of anterior wall prompting cath. Cath revealed nonobstructive coronary disease. She had a prior history of a cardiomyopathy in 2010 of unclear etiology (with LVEF of45%). Per documentation, the ventral hernia was conservatively managed and she was just recently seen on 12/23/[address] Henry who wanted ongoing conservative management. REVIEW OF SYSTEMS: Unable to obtain Medications: Scheduled Meds: ??? AMIOdarone ??? [START ON 01/05/2019] shift total and Settings verification Intravenous 2 Times Daily - Shift Total ??? acetaminophen 1,000 mg Intravenous Once ??? insulin lispro 3-6 Units Subcutaneous TID WC ??? insulin regular human 0.5-8 Units/hr Intravenous Change bag every evening ??? MEROpenem 1 g Intravenous Q8H ??? AMIOdarone ??? AMIOdarone Continuous Infusions: ??? midazolam in normal saline ??? AMIOdarone ??? EPINEPHrine in D5W 1 mcg/min (01/04/19 2300) PRN Meds:.midazolam in normal saline AND midazolam AND [START ON 01/05/2019] shift total and Settings verification, HYDROmorphone, Glucose 40% oral gel OR dextrose, insulin regular human Allergies: Allergies Allergen Reactions ??? Anafranil [Clomipramine] [...] depression ??? Sulfa (Sulfonamide Antibiotics) Hives Family History: Unable to obtain Per chart - cancer of unclear type in father Social History: Unable to obtain - per records Former smoker, smoked 1 pack per day until 2017 Denies alcohol Smokes marijuana Physical Exam Vitals: Last value Range last 24 hrs Temperature Temp: 37.1 ??C (98.8 ??F) Temp: [37.1 ??C (98.8 ??F)] Heart Rate Heart Rate: (!) 108 Heart Rate: [76-162] Blood Pressure BP: (!) 117/97 BP: (117-175)/(85-151) Respiratory Rate Resp: 14 Resp: [14-33] SpO2 SpO2: 100 % SpO2: [95 %-100 %] Examination: General: Intubated and sedated, obese Neck: unable to appreciate JVP with body habitus Cardiac: Irregularly irregular and tachycardic with holosystolic murmur heard best at apex Respiratory: Coarse breath sounds bilaterally Ext: Warm and well perfused, non pitting edema Neuro: Sedated Labs: CBC: Recent Labs 01/04/19212411/08/1815511/07/18 1435 WBC 37.0* 14.1* 7.8 HGB 14.6 11.1* 10.9* PLATELET 463* 251 213 Chemistry: Recent Labs 01/04/19212411/08/1815511/07/18 1435 NA 132* 136 136 K 6.3* 4.9 4.8 CL 100 103 102 CO2 16* 20* 21* BUN 14 15 14 CREATININE 0.75 0.74 0.79 GLUCOSE 453* 211* 165 Recent Labs 01/04/19212411/08/1815511/07/18 1435 07/09/18 1950 CALCIUM 10.5 9.9 10.6* < > 9.8 MAGNESIUM 0.66* -- -- -- 0.65* PHOS 3.2 -- -- -- 2.0* < > = values in this interval not displayed. LFT's: Recent Labs 01/04/19212407/22/18 1803 07/09/18 1950 BILITOT 1.1 0.8 1.2 BILIDIR 0.3 0.2 0.3 ALBUMIN 4.7 3.9 3.8 ALKPHOS 129* 77 73 ALT 30 20 25 AST 37* 31* 32* Coags: Recent Labs 01/04/192124 PT 12.2 INR 1.1 PTT 26 DDIMER 5,972* Cardiac enzymes: Recent Labs 01/04/192124 TROPONINT 0.16* Pertinent Radiographic/Diagnostic Results: CXR 01/04/2019 (images from OSH, my read) Pulmonary edema CT abdomen/pelvis 01/04/2019 (per read from OSH) partial small bowel obstruction secondary to incarcerated anterior wall abdominal hernia EKG/telemtry 01/04/2019 - LBBB with atrial fibrillation Cardiac catheterization 09/12/2018 Coronary Angiography: Dominance: Right Left Main There was mild diffuse (<=25% stenosis) disease of the entire vessel segment of the left main artery. The left main was moderate in size. Left Anterior Descending There was mild diffuse (<=25% stenosis) disease of the entire vessel segment of the left anterior descending artery (LAD). The LAD was small. Distal flow was decreased. There was mild diffuse (<=25% stenosis) disease of the entire vessel segment of the first diagonal branch (Diagonal 1) of the LAD. The Diagonal 1 was large. Left Circumflex There was mild diffuse (<=25% stenosis) disease of the entire vessel segment of the left circumflex artery (LCX). The LCX was moderate in size. There was mild diffuse (<=25% stenosis) disease of the entire vessel segment of the first obtuse marginal branch (OM1) of the LCX. The OM1 was moderate in size. Right Coronary Artery There was mild diffuse (<=25% stenosis) disease of the entire vessel segment of the right coronary artery (RCA). The RCA was large. Conclusions: * Nonobstructive coronary artery disease TTE 08/28/2018 1. Technically limited 2. There is normal global left ventricular systolic function. The quantitative left ventricular ejection fraction by biplane Harden's method is 65%. The basal inferoseptal, and mid inferoseptal wall segments are hypokinetic (score 2). There is a left ventricular septal wall motion abnormality observed, possibly due to the presence of a left bundle branch block. 3. Right ventricular chamber size, wall thickness, and systolic function are within normal limits. 4. No significant valvular disease. 5. The pericardium appears normal and there is no evidence of a pericardial effusion. Pulmonary artery hypertension could not be assessed due to inadequate tricuspid regurgitation jet. When compared tothe prior 10/01/09 study, global LV function has improved but the segmental wall motion abnormalitiesmay be new (previously global hypoineses wtih EF 45%). Prior EKGs show LBBB ?? ASSESSMENT & RECOMMENDATIONS: 58 y.o. female with medical history as detailed above who presented to OSH ED with complaints of abdominal pain, found to have partial small bowel obstruction secondary to incarcerated anterior wall abdominal hernia. She underwent volume resuscitation at the OSH which resulted in hypoxic respiratory failure from pulmonary edema and she has since been intubated. This prompted cardiac workup, and TTE was requested. Bedside TTE reveals a severely reduced ejection fraction, with an EF of 15% and diffusehypokinesis. There is at least mild to moderate MR from the limited images obtained from bedside TTE. She had a cardiac evaluation just 4 months ago that showed a normal EF, and cath revealed nonobstructive coronary disease. 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 She presented with severe lactic acidosis, elevated WBC and consistent CT findings. 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 It's unclear as to how long she has been in atrial fibrillation, for which she has no history of. At this point, recommend PA catheter to assist with optimizing hemodynamics and to estimate a cardiac index, as she may benefit from ionotropic therapies. I suspect her filling pressures willbe elevated, however she may still need volume resuscitation for her underlying abdominal pathology,which would certainly be the priority and would defer diuresis for now. With regards to her arrhythmia, anticoagulation is indicated, however will defer this decision to primary team with considerationto her hernia and the question of needing intervention. Since we do not know how long she has been in atrial fibrillation, would not recommend amiodarone due to the risk of cardioversion. Her HR was well controlled prior to the initiation of epinephrine. Recommend levophed as the initial pressor of choice, and can adjust depending on numbers from PA cath. Case to be discussed in the AM with Dr. Dilip wharton Cardiology will continue to follow. Cardiology will sign off. Please do not hesitate to contact with questions/concerns. Yuni Casillas, DO Manager [employer] Cardiology Attending Addendum I was the assigned attending community mental health worker for this clinical encounter. For the purposes of billing, I was directly involved in the clinical decision making and the plan of care is reasonable. Please see the full note by Dr. Casillas for details. I have interviewed and examined the patient and have reviewed the pertinent clinical findings, laboratory and/or imaging studies and I concur with the assessment and plan as outlined. Additional information and exceptions as noted below. In brief, Blossom Pacheco is a 58 y.o. year old female w/ h/o kidney stones who presented to OSH w/ abdominal pain. Has ventral hernia which she has been following with surgery for. No plans for surgery. Acute onset of pain yesterday. Lactate 17. CT showed incarcerated hernia. She got fluids. She was transferred here. On the way has flash pulmonary edema and gets intubated. TTE showed low EF for which cardiology was consulted. TTE fellow performed TTE which showed EF ~10% with diffuse HK. Normal RV function w/o RV dilitation.At least mild MR. She had previously had EF ~45% in 2013 of unclear etiology. Had recovered by 09/[address] Drew. EF then was 65% with anterior WMA for which she got a stress which was positive in the anterior distribution for which she was cathed. Nonobstructive CAD from 10/08. LBBB is old. Overnight, pressor requirement increased. General surgery took her to the OR where no ischemic bowelwas not found. RHC now in place: RA 4, W 11, CI 2.3 by TD, SVR ~900 using TD EKG shows NSR now, previously during this admission Afib which was new She is now febrile. Lactate now 4.3. Assessment 58 yo F w/ shock. Etiology unclear but no e/o cardiogenic shock based on RHC despite TTE with EF ~10-15%. Suspect this is myopathy I/s/o her acute illness, possibly on the background of a preceding drop in her EF from Afib/tachy mediated myopathy. Now improving. Will need careful fluid management and n eurohormonal therapy as she recovers. No evidence of cardiogenic shock at this time. 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 Role of LBBB - No c/f CAD or ACS given recent clean cath - If EF does not recover, she is likely a SAP [employer] candidate In total 55 minutes were spent with this patient, 45 minutes in direct counseling and discussion with patients and/or family. Judy Terry MD MPH [facility] Attending 01/05/2019, 8:09 AM ED Procedure Note - Ariane Johnson MD - 01/04/2019 10:30 PM EDT Procedures Arterial Line Placement Procedure Note Indication for Procedure: Arterial line was placed for invasive blood pressure monitoring and arterial blood gases. Procedure Diagnosis: septic shock Location of Procedure: Emergency Department. Risks and Benefits: The risks and benefits of this procedure were not reviewed and informed consent was not obtained. Emergency Procedure. Time Out: Prior to the start of the procedure, the patient's identity, intended procedure, site/side, correct patient positioning and presence of the site adan was confirmed as applicable. The medical history and chart were reviewed to rule out potential contraindications to the planned procedure. Hand Hygiene: The linen aide did perform hand hygiene prior to arterial line insertion. Procedure Prep: Sterile draping was applied. Skin was prepped with chlorhexidine. 2 ml of 1% Lidocaine was used for local anesthesia. Procedure Details: A 18 gauge, 2 inch catheter was placed in the right radial artery and secured with tape, steri-strips and suture. Tegaderm was applied. Guide wire was used in this procedure. The guide wire had a diameter of .018 inches. There were 2 attempts. Findings: Good wave form. Procedure Comments: none Associated attestation - Hossein Chahal MD - 01/07/2019 9:05 PM EDT I was the attending physician supervising the resident in the above care and I was present with the resident for the lindo component(s) of the procedure and remained immediately available throughout the remainder. ED Procedure Note - Ariane Johnson MD - 01/04/2019 10:30 PM EDT Procedures Central Line Placement Procedure Note Items highlighted in red are State Reported items for central line compliance documentation. Procedure Diagnosis: septic vs cardiogenic shock Risks and Benefits reviewed: no. Informed Consent obtained: no Reason for insertion: new central line Time out performed and documented: yes Hand Hygiene performed: Yes Skin prepped with: chlorhexidine Skin prep agent completely dry at time of first puncture: yes 3 ml of 1% lidocaine was used for local anesthesia. Sterile drape: large sterile drape used Mask/eye shield: mask/eye shield used Large sterile gown: large sterile gown used Sterile gloves: sterile gloves used Cap worn: cap worn Ultrasound guidance used for insertion: Yes Kit type used: An 18 Ga. X 2.5 inch needle was placed in vein after blood return identified. Guided by a 0.035 inch diameter guide wire, a 9 Fr., 1 lumen Introducer was inserted using the Seldinger Technique. Catheter type: CVL Tunneled/Non Tunneled: non tunneled Insertion Site: jugular (internal) Insertion Side: right Number of attempts: 1 Insertion successful: Yes Sterile dressing: Chlorhexidine Tegaderm Findings: Patient tolerated procedure well., Blood returned appropriately. Complications: No Complications. Chest X-ray ordered: yes Patient location at time of insertion: ED Procedure Comments: None Ariane Johnson MD Associated attestation - Hossein Chahal MD - 01/07/2019 9:06 PM EDT I was the attending physician supervising the resident in the above care and I was present with the resident for the entire procedure. ED Procedure Note - Michael Chi - 01/04/2019 10:25 PM EDT Intubation Procedure Note Reason for Intubation: ?? Airway protection and cardiogenic shock. Procedure Diagnosis: cardiogenic vs undifferentiated shock Location of Procedure: Emergency Department. Risks and Benefits: The risks and benefits of this procedure were reviewed and informed consent was obtained verbally with the patient. Time Out: Prior to the start of the procedure, the patient's identity, intended procedure, site/side, correct patient positioning and presence of the site adan was confirmed as applicable. The medical history and chart were reviewed to rule out potential contraindications to the planned procedure. Intubation Assessment: ?? II Mallampati assessment ?? Dentition natural Additional Intubation Assessment: Preoxygenation was administered. Bag/mask ventilation was easy Laryngoscope Blade and Size: Size 3 The endotracheal tube size was 7.5 mm. The tube was cuffed. Common Adjuvant Equipment: A stylet was used. An oral airway was used. Size: 4. A nasal airway was not used. Additional Adjuvant Equipment: Type scope: CMAC [place] Intubation Catheter: no Combitube:no Intubating Laryngeal Mask Airway:none Laryngeal Mask Airway: none Other: none Intubation Method: other: CMAC IV Medications: ?? 4 mg Midazolam ?? 50 microgram Fentanyl Other Medications: ?? Other: none Insertion Attempts: There was 1 attempt. Visualization of Vocal Chords: A Grade I view of the vocal cords was observed. Confirmation of Tube Placement: ?? Chest X-ray ordered ?? end tidal CO2 ?? bilateral breath sounds ?? visualization of trachea Status Post Intubation: ?? The patient was hemodynamically stable. Tube secured (at lip or nares): 23 cm Other post intubation status comments: none Michael Chi MD 01/04/2019 Associated attestation - Hossein Chahal MD - 01/07/2019 9:05 PM EDT I was the attending physician supervising the resident in the above care and I was present with the resident for the entire procedure. documented in this encounter Plan of Treatment Upcoming Encounters Date Type Specialty Care Team Description 03/15/2022 Office Visit Neurology Ryann Barfield APRN [facility] [address] [place] [address] 03/23/2022 Appointment Radiology Hailey Mcclendon MD [facility] [address] [address] 03/23/2022 Laboratory Appointment Lab 03/23/2022 Office Visit Gastroenterology Hailey Mcclendon MD [facility] [address] [place] [address] 05/23/2022 Procedure visit Maxillofacial Surgery Corby Montes MD [facility] [place] [address] Pending Results Name Type Priority Associated Diagnoses Date/Ti me Lower Respiratory Microbiology Routine 01/11/2019 4:48 AM Culture Sputum Induced EDT documented as of this encounter Procedures Procedure Name Priority Date/Time Associated Diagnosis Comme nts POCT GLUCOSE Routine 01/15/2019 11:09 Results for this AM EDT procedure are i n the results section. POCT GLUCOSE Routine 01/15/2019 7:26 Results for this AM EDT procedure are i n the results section. POCT GLUCOSE Routine 01/15/2019 6:43 Results for this AM EDT procedure are i n the results section. HEMOGRAM Routine 01/15/2019 5:04 Results for this AM EDT procedure are i n the results section. DIFFERENTIAL, AUTOMATED Routine 01/15/2019 5:04 R esults for this AM EDT procedure are i n the results section. CBC (WITH DIFF) Routine 01/15/2019 5:04 AM EDT MAGNESIUM Routine 01/15/2019 5:04 Results for this AM EDT procedure are i n the results section. BASIC METABOLIC PANEL Routine 01/15/2019 5:04 Res ults for this (NON-FASTING) AM EDT procedure are in the results section. POCT GLUCOSE Routine 01/14/2019 8:10 Results for this PM EDT procedure are i n the results section. POCT GLUCOSE Routine 01/14/2019 4:28 Results for this PM EDT procedure are i n the results section. POCT GLUCOSE Routine 01/14/2019 12:01 Results for this PM EDT procedure are i n the results section. POCT GLUCOSE Routine 01/14/2019 6:47 Results for this AM EDT procedure are i n the results section. HEMOGRAM Routine 01/14/2019 5:47 Results for this AM EDT procedure are i n the results section. DIFFERENTIAL, AUTOMATED Routine 01/14/2019 5:47 R esults for this AM EDT procedure are i n the results section. CBC (WITH DIFF) Routine 01/14/2019 5:47 AM EDT MAGNESIUM Routine 01/14/2019 5:47 Results for this AM EDT procedure are i n the results section. BASIC METABOLIC PANEL Routine 01/14/2019 5:47 Res ults for this (NON-FASTING) AM EDT procedure are in the results section. POCT GLUCOSE Routine 01/13/2019 7:45 Results for this PM EDT procedure are i n the results section. POCT GLUCOSE Routine 01/13/2019 4:30 Results for this PM EDT procedure are i n the results section. POCT GLUCOSE Routine 01/13/2019 2:21 Results for this PM EDT procedure are i n the results section. POCT GLUCOSE Routine 01/13/2019 11:07 Results for this AM EDT procedure are i n the results section. PHOSPHORUS Routine 01/13/2019 8:26 Results for this AM EDT procedure are i n the results section. MAGNESIUM Routine 01/13/2019 8:26 Results for this AM EDT procedure are i n the results section. BASIC METABOLIC PANEL Routine 01/13/2019 8:26 Res ults for this (NON-FASTING) AM EDT procedure are in the results section. POCT GLUCOSE Routine 01/13/2019 6:50 Results for this AM EDT procedure are i n the results section. HEMOGRAM Routine 01/13/2019 6:46 Results for this AM EDT procedure are i n the results section. GREEN TUBE HOLD Routine 01/13/2019 6:46 Results f or this AM EDT procedure are i n the results section. HEMOGLOBIN A1C Routine 01/13/2019 6:46 Results fo r this AM EDT procedure are i n the results section. POCT GLUCOSE Routine 01/13/2019 4:57 Results for this AM EDT procedure are i n the results section. POCT GLUCOSE Routine 01/13/2019 2:04 Results for this AM EDT procedure are i n the results section. POCT GLUCOSE Routine 01/12/2019 8:49 Results for this PM EDT procedure are i n the results section. BASIC METABOLIC PANEL Routine 01/12/2019 4:15 Res ults for this (NON-FASTING) PM EDT procedure are in the results section. POCT GLUCOSE Routine 01/12/2019 4:14 Results for this PM EDT procedure are i n the results section. POCT GLUCOSE Routine 01/12/2019 12:38 Results for this PM EDT procedure are i n the results section. HEMOGRAM Routine 01/12/2019 11:45 Results for this AM EDT procedure are i n the results section. POCT GLUCOSE Routine 01/12/2019 11:44 Results for this AM EDT procedure are i n the results section. PHOSPHORUS Routine 01/12/2019 11:31 Results for this AM EDT procedure are i n the results section. HEPATIC FUNCTION PANEL Routine 01/12/2019 11:31 R esults for this AM EDT procedure are i n the results section. BASIC METABOLIC PANEL Routine 01/12/2019 11:31 Re sults for this (NON-FASTING) AM EDT procedure are in the results section. POCT GLUCOSE Routine 01/12/2019 10:37 Results for this AM EDT procedure are i n the results section. POCT GLUCOSE Routine 01/12/2019 9:37 Results for this AM EDT procedure are i n the results section. POCT GLUCOSE Routine 01/12/2019 8:36 Results for this AM EDT procedure are i n the results section. POCT GLUCOSE Routine 01/12/2019 7:33 Results for this AM EDT procedure are i n the results section. POCT GLUCOSE Routine 01/12/2019 6:33 Results for this AM EDT procedure are i n the results section. POCT GLUCOSE Routine 01/12/2019 6:04 Results for this AM EDT procedure are i n the results section. POCT GLUCOSE Routine 01/12/2019 5:10 Results for this AM EDT procedure are i n the results section. POCT GLUCOSE Routine 01/12/2019 4:14 Results for this AM EDT procedure are i n the results section. POCT GLUCOSE Routine 01/12/2019 3:20 Results for this AM EDT procedure are i n the results section. POCT GLUCOSE Routine 01/12/2019 2:00 Results for this AM EDT procedure are i n the results section. POCT GLUCOSE Routine 01/12/2019 12:58 Results for this AM EDT procedure are i n the results section. POCT GLUCOSE Routine 01/11/2019 11:58 Results for this PM EDT procedure are i n the results section. POCT GLUCOSE Routine 01/11/2019 10:44 Results for this PM EDT procedure are i n the results section. POCT GLUCOSE Routine 01/11/2019 10:07 Results for this PM EDT procedure are i n the results section. POCT GLUCOSE Routine 01/11/2019 9:01 Results for this PM EDT procedure are i n the results section. POCT GLUCOSE Routine 01/11/2019 7:46 Results for this PM EDT procedure are i n the results section. POCT GLUCOSE Routine 01/11/2019 6:06 Results for this PM EDT procedure are i n the results section. BASIC METABOLIC PANEL Routine 01/11/2019 6:05 Res ults for this (NON-FASTING) PM EDT procedure are in the results section. POCT GLUCOSE Routine 01/11/2019 5:25 Results for this PM EDT procedure are i n the results section. POCT GLUCOSE Routine 01/11/2019 4:22 Results for this PM EDT procedure are i n the results section. POCT GLUCOSE Routine 01/11/2019 3:08 Results for this PM EDT procedure are i n the results section. POCT GLUCOSE Routine 01/11/2019 1:53 Results for this PM EDT procedure are i n the results section. C. DIFFICILE SCREEN Routine 01/11/2019 1:33 Resul ts for this PM EDT procedure are i n the results section. POCT GLUCOSE Routine 01/11/2019 12:49 Results for this PM EDT procedure are i n the results section. POCT GLUCOSE Routine 01/11/2019 11:59 Results for this AM EDT procedure are i n the results section. POCT GLUCOSE Routine 01/11/2019 10:45 Results for this AM EDT procedure are i n the results section. BASIC METABOLIC PANEL Routine 01/11/2019 10:45 Re sults for this (NON-FASTING) AM EDT procedure are in the results section. POCT GLUCOSE Routine 01/11/2019 10:06 Results for this AM EDT procedure are i n the results section. POCT GLUCOSE Routine 01/11/2019 8:25 Results for this AM EDT procedure are i n the results section. POCT GLUCOSE Routine 01/11/2019 7:38 Results for this AM EDT procedure are i n the results section. POCT GLUCOSE Routine 01/11/2019 6:13 Results for this AM EDT procedure are i n the results section. HEMOGRAM Routine 01/11/2019 5:20 Results for this AM EDT procedure are i n the results section. PHOSPHORUS Routine 01/11/2019 5:20 Results for this AM EDT procedure are i n the results section. MAGNESIUM Routine 01/11/2019 5:20 Results for this AM EDT procedure are i n the results section. BASIC METABOLIC PANEL Routine 01/11/2019 5:20 Res ults for this (NON-FASTING) AM EDT procedure are in the results section. POCT GLUCOSE Routine 01/11/2019 5:04 Results for this AM EDT procedure are i n the results section. LOWER RESPIRATORY Routine 01/11/2019 4:48 CULTURE AM EDT POCT GLUCOSE Routine 01/11/2019 4:21 Results for this AM EDT procedure are i n the results section. POCT GLUCOSE Routine 01/11/2019 3:03 Results for this AM EDT procedure are i n the results section. POCT GLUCOSE Routine 01/11/2019 2:02 Results for this AM EDT procedure are i n the results section. POCT GLUCOSE Routine 01/11/2019 1:06 Results for this AM EDT procedure are i n the results section. POCT GLUCOSE Routine 01/11/2019 12:22 Results for this AM EDT procedure are i n the results section. POCT GLUCOSE Routine 01/10/2019 11:05 Results for this PM EDT procedure are i n the results section. PHOSPHORUS Routine 01/10/2019 10:08 Results for this PM EDT procedure are i n the results section. MAGNESIUM Routine 01/10/2019 10:08 Results for this PM EDT procedure are i n the results section. BASIC METABOLIC PANEL Routine 01/10/2019 10:08 Re sults for this (NON-FASTING) PM EDT procedure are in the results section. POCT GLUCOSE Routine 01/10/2019 10:07 Results for this PM EDT procedure are i n the results section. POCT GLUCOSE Routine 01/10/2019 6:12 Results for this PM EDT procedure are i n the results section. POCT GLUCOSE Routine 01/10/2019 4:48 Results for this PM EDT procedure are i n the results section. BASIC METABOLIC PANEL Routine 01/10/2019 3:15 Res ults for this (NON-FASTING) PM EDT procedure are in the results section. POCT GLUCOSE Routine 01/10/2019 2:52 Results for this PM EDT procedure are i n the results section. POCT GLUCOSE Routine 01/10/2019 12:25 Results for this PM EDT procedure are i n the results section. POCT GLUCOSE Routine 01/10/2019 11:39 Results for this AM EDT procedure are i n the results section. POCT GLUCOSE Routine 01/10/2019 10:46 Results for this AM EDT procedure are i n the results section. POCT GLUCOSE Routine 01/10/2019 10:10 Results for this AM EDT procedure are i n the results section. DUPLEX FOR DVT, ARM, Routine 01/10/2019 8:36 Morbid obesity wi th Results for this UNILAT AM EDT BMI of 50.0-59.9, procedure are in adult the results section. POCT GLUCOSE Routine 01/10/2019 8:18 Results for this AM EDT procedure are i n the results section. PHOSPHORUS STAT 01/10/2019 8:10 Results for this AM EDT procedure are i n the results section. POCT GLUCOSE Routine 01/10/2019 6:55 Results for this AM EDT procedure are i n the results section. HEMOGRAM Routine 01/10/2019 5:50 Results for this AM EDT procedure are i n the results section. PHOSPHORUS Routine 01/10/2019 5:50 Results for this AM EDT procedure are i n the results section. MAGNESIUM Routine 01/10/2019 5:50 Results for this AM EDT procedure are i n the results section. BASIC METABOLIC PANEL Routine 01/10/2019 5:50 Res ults for this (NON-FASTING) AM EDT procedure are in the results section. POCT GLUCOSE Routine 01/10/2019 5:30 Results for this AM EDT procedure are i n the results section. POCT GLUCOSE Routine 01/10/2019 3:55 Results for this AM EDT procedure are i n the results section. POCT GLUCOSE Routine 01/10/2019 2:22 Results for this AM EDT procedure are i n the results section. POCT GLUCOSE Routine 01/10/2019 12:50 Results for this AM EDT procedure are i n the results section. XR ABDOMEN 1 VIEW Routine 01/10/2019 12:17 Result s for this AM EDT procedure are i n the results section. POCT GLUCOSE Routine 01/09/2019 10:57 Results for this PM EDT procedure are i n the results section. POTASSIUM Routine 01/09/2019 10:05 Results for this PM EDT procedure are i n the results section. POCT GLUCOSE Routine 01/09/2019 9:17 Results for this PM EDT procedure are i n the results section. POCT GLUCOSE Routine 01/09/2019 7:50 Results for this PM EDT procedure are i n the results section. POCT GLUCOSE Routine 01/09/2019 6:25 Results for this PM EDT procedure are i n the results section. GREEN TUBE HOLD Routine 01/09/2019 6:10 Results f or this PM EDT procedure are i n the results section. POCT GLUCOSE Routine 01/09/2019 4:08 Results for this PM EDT procedure are i n the results section. POCT GLUCOSE Routine 01/09/2019 2:32 Results for this PM EDT procedure are i n the results section. POCT GLUCOSE Routine 01/09/2019 1:20 Results for this PM EDT procedure are i n the results section. POCT GLUCOSE Routine 01/09/2019 12:05 Results for this PM EDT procedure are i n the results section. POCT GLUCOSE Routine 01/09/2019 10:21 Results for this AM EDT procedure are i n the results section. POCT GLUCOSE Routine 01/09/2019 9:20 Results for this AM EDT procedure are i n the results section. POCT GLUCOSE Routine 01/09/2019 8:01 Results for this AM EDT procedure are i n the results section. POCT GLUCOSE Routine 01/09/2019 6:51 Results for this AM EDT procedure are i n the results section. POCT GLUCOSE Routine 01/09/2019 5:35 Results for this AM EDT procedure are i n the results section. POCT GLUCOSE Routine 01/09/2019 4:12 Results for this AM EDT procedure are i n the results section. XR ABDOMEN 1 VIEW Routine 01/09/2019 3:06 Results for this AM EDT procedure are i n the results section. POCT GLUCOSE Routine 01/09/2019 2:58 Results for this AM EDT procedure are i n the results section. HEMOGRAM Routine 01/09/2019 2:07 Results for this AM EDT procedure are i n the results section. PHOSPHORUS Routine 01/09/2019 2:07 Results for this AM EDT procedure are i n the results section. MAGNESIUM Routine 01/09/2019 2:07 Results for this AM EDT procedure are i n the results section. BASIC METABOLIC PANEL Routine 01/09/2019 2:07 Res ults for this (NON-FASTING) AM EDT procedure are in the results section. POCT GLUCOSE Routine 01/09/2019 2:06 Results for this AM EDT procedure are i n the results section. POCT GLUCOSE Routine 01/09/2019 12:22 Results for this AM EDT procedure are i n the results section. POCT GLUCOSE Routine 01/08/2019 10:43 Results for this PM EDT procedure are i n the results section. POCT GLUCOSE Routine 01/08/2019 9:25 Results for this PM EDT procedure are i n the results section. POCT GLUCOSE Routine 01/08/2019 7:57 Results for this PM EDT procedure are i n the results section. POCT GLUCOSE Routine 01/08/2019 6:55 Results for this PM EDT procedure are i n the results section. POCT GLUCOSE Routine 01/08/2019 6:26 Results for this PM EDT procedure are i n the results section. POCT GLUCOSE Routine 01/08/2019 5:42 Results for this PM EDT procedure are i n the results section. POCT GLUCOSE Routine 01/08/2019 5:02 Results for this PM EDT procedure are i n the results section. ASPERGILLUS ANTIGEN Routine 01/08/2019 4:30 Resul ts for this PM EDT procedure are i n the results section. BLOOD CULTURE Routine 01/08/2019 4:30 Results for this PM EDT procedure are i n the results section. PHOSPHORUS Routine 01/08/2019 4:30 Results for this PM EDT procedure are i n the results section. MAGNESIUM Routine 01/08/2019 4:30 Results for this PM EDT procedure are i n the results section. POCT GLUCOSE Routine 01/08/2019 4:11 Results for this PM EDT procedure are i n the results section. POCT GLUCOSE Routine 01/08/2019 3:05 Results for this PM EDT procedure are i n the results section. XR ABDOMEN 1 VIEW Routine 01/08/2019 2:21 Results for this PM EDT procedure are i n the results section. POCT GLUCOSE Routine 01/08/2019 2:09 Results for this PM EDT procedure are i n the results section. POCT GLUCOSE Routine 01/08/2019 12:34 Results for this PM EDT procedure are i n the results section. EXTUBATE Routine 01/08/2019 12:11 PM EDT POCT GLUCOSE Routine 01/08/2019 10:39 Results for this AM EDT procedure are i n the results section. POCT GLUCOSE Routine 01/08/2019 8:54 Results for this AM EDT procedure are i n the results section. EKG 12-LEAD STAT 01/08/2019 8:03 Results for this AM EDT procedure are i n the results section. POCT GLUCOSE Routine 01/08/2019 7:59 Results for this AM EDT procedure are i n the results section. POCT GLUCOSE Routine 01/08/2019 7:18 Results for this AM EDT procedure are i n the results section. POCT GLUCOSE Routine 01/08/2019 5:49 Results for this AM EDT procedure are i n the results section. POCT GLUCOSE Routine 01/08/2019 4:03 Results for this AM EDT procedure are i n the results section. POCT GLUCOSE Routine 01/08/2019 3:09 Results for this AM EDT procedure are i n the results section. POCT GLUCOSE Routine 01/08/2019 2:00 Results for this AM EDT procedure are i n the results section. HEMOGRAM STAT 01/08/2019 1:45 Results for this AM EDT procedure are i n the results section. DIFFERENTIAL, AUTOMATED STAT 01/08/2019 1:45 R esults for this AM EDT procedure are i n the results section. CBC (WITH DIFF) STAT 01/08/2019 1:45 AM EDT PHOSPHORUS Routine 01/08/2019 1:45 Results for this AM EDT procedure are i n the results section. LIPASE STAT 01/08/2019 1:45 Results for this AM EDT procedure are i n the results section. AMYLASE STAT 01/08/2019 1:45 Results for this AM EDT procedure are i n the results section. BASIC METABOLIC PANEL STAT 01/08/2019 1:45 Res ults for this (NON-FASTING) AM EDT procedure are in the results section. POCT GLUCOSE Routine 01/08/2019 1:07 Results for this AM EDT procedure are i n the results section. POCT GLUCOSE Routine 01/08/2019 12:04 Results for this AM EDT procedure are i n the results section. POCT GLUCOSE Routine 01/07/2019 10:17 Results for this PM EDT procedure are i n the results section. POCT GLUCOSE Routine 01/07/2019 8:55 Results for this PM EDT procedure are i n the results section. POCT GLUCOSE Routine 01/07/2019 8:05 Results for this PM EDT procedure are i n the results section. POCT GLUCOSE Routine 01/07/2019 6:26 Results for this PM EDT procedure are i n the results section. POCT GLUCOSE Routine 01/07/2019 5:02 Results for this PM EDT procedure are i n the results section. SPECIMEN TO PATHOLOGY Routine 01/07/2019 5:00 Res ults for this PM EDT procedure are i n the results section. SPECIMEN TO PATHOLOGY STAT 01/07/2019 4:29 Res ults for this PM EDT procedure are i n the results section. SPECIMEN TO PATHOLOGY Routine 01/07/2019 4:24 Res ults for this PM EDT procedure are i n the results section. SURGICAL PATHOLOGY Routine 01/07/2019 4:23 Result s for this REPORT PM EDT procedure are i n the results section. POCT GLUCOSE Routine 01/07/2019 4:07 Results for this PM EDT procedure are i n the results section. @BOWEL RESECTION, SMALL 01/07/2019 3:39 BILIARY COLIC INTESTINE SINGLE PM EDT ANASTOMOSIS (WRVU 20.82) @EXPLORATORY 01/07/2019 3:39 BILIARY COLIC LAPAROTOMY, PM EDT WITH/WITHOUT BIOPSY(S) (WRVU 12.54) POCT GLUCOSE Routine 01/07/2019 3:07 Results for this PM EDT procedure are i n the results section. POCT GLUCOSE Routine 01/07/2019 2:14 Results for this PM EDT procedure are i n the results section. PHOSPHORUS Routine 01/07/2019 1:25 Results for this PM EDT procedure are i n the results section. MAGNESIUM Routine 01/07/2019 1:25 Results for this PM EDT procedure are i n the results section. BASIC METABOLIC PANEL STAT 01/07/2019 1:25 Res ults for this (NON-FASTING) PM EDT procedure are in the results section. POCT GLUCOSE Routine 01/07/2019 1:16 Results for this PM EDT procedure are i n the results section. POCT GLUCOSE Routine 01/07/2019 12:10 Results for this PM EDT procedure are i n the results section. POCT GLUCOSE Routine 01/07/2019 10:52 Results for this AM EDT procedure are i n the results section. POCT GLUCOSE Routine 01/07/2019 9:48 Results for this AM EDT procedure are i n the results section. BLOOD GAS 2 VENOUS Routine 01/07/2019 8:46 Result s for this AM EDT procedure are i n the results section. HEMOGRAM STAT 01/07/2019 8:40 Results for this AM EDT procedure are i n the results section. DIFFERENTIAL, AUTOMATED STAT 01/07/2019 8:40 R esults for this AM EDT procedure are i n the results section. CBC (WITH DIFF) STAT 01/07/2019 8:40 AM EDT BASIC METABOLIC PANEL STAT 01/07/2019 8:40 Res ults for this (NON-FASTING) AM EDT procedure are in the results section. POCT GLUCOSE Routine 01/07/2019 8:33 Results for this AM EDT procedure are i n the results section. POCT GLUCOSE Routine 01/07/2019 7:15 Results for this AM EDT procedure are i n the results section. POCT GLUCOSE Routine 01/07/2019 6:16 Results for this AM EDT procedure are i n the results section. POCT GLUCOSE Routine 01/07/2019 5:17 Results for this AM EDT procedure are i n the results section. POCT GLUCOSE Routine 01/07/2019 4:16 Results for this AM EDT procedure are i n the results section. HEMOGRAM STAT 01/07/2019 4:15 Results for this AM EDT procedure are i n the results section. DIFFERENTIAL, AUTOMATED STAT 01/07/2019 4:15 R esults for this AM EDT procedure are i n the results section. CBC (WITH DIFF) STAT 01/07/2019 4:15 AM EDT PHOSPHORUS Routine 01/07/2019 4:15 Results for this AM EDT procedure are i n the results section. MAGNESIUM Routine 01/07/2019 4:15 Results for this AM EDT procedure are i n the results section. BASIC METABOLIC PANEL STAT 01/07/2019 4:15 Res ults for this (NON-FASTING) AM EDT procedure are in the results section. POCT GLUCOSE Routine 01/07/2019 3:29 Results for this AM EDT procedure are i n the results section. POCT GLUCOSE Routine 01/07/2019 1:43 Results for this AM EDT procedure are i n the results section. POCT GLUCOSE Routine 01/07/2019 12:43 Results for this AM EDT procedure are i n the results section. POCT GLUCOSE Routine 01/07/2019 12:12 Results for this AM EDT procedure are i n the results section. POCT GLUCOSE Routine 01/06/2019 11:50 Results for this PM EDT procedure are i n the results section. POCT GLUCOSE Routine 01/06/2019 11:17 Results for this PM EDT procedure are i n the results section. POCT GLUCOSE Routine 01/06/2019 10:05 Results for this PM EDT procedure are i n the results section. POCT GLUCOSE Routine 01/06/2019 9:27 Results for this PM EDT procedure are i n the results section. POCT GLUCOSE Routine 01/06/2019 8:17 Results for this PM EDT procedure are i n the results section. POCT GLUCOSE Routine 01/06/2019 7:38 Results for this PM EDT procedure are i n the results section. POCT GLUCOSE Routine 01/06/2019 6:59 Results for this PM EDT procedure are i n the results section. POCT GLUCOSE Routine 01/06/2019 6:23 Results for this PM EDT procedure are i n the results section. CT ANGIOGRAM ABDOMEN Routine 01/06/2019 5:51 Resu lts for this AND PELVIS W CONTRAST PM EDT proced ure are in the results section. CT CHEST WO CONTRAST Routine 01/06/2019 5:51 Resu lts for this (GENERIC) PM EDT procedure are i n the results section. POCT GLUCOSE Routine 01/06/2019 5:03 Results for this PM EDT procedure are i n the results section. POCT GLUCOSE Routine 01/06/2019 4:00 Results for this PM EDT procedure are i n the results section. POCT GLUCOSE Routine 01/06/2019 2:57 Results for this PM EDT procedure are i n the results section. POCT GLUCOSE Routine 01/06/2019 2:02 Results for this PM EDT procedure are i n the results section. XR CHEST ONE VIEW STAT 01/06/2019 1:42 Results for this PM EDT procedure are i n the results section. POCT GLUCOSE Routine 01/06/2019 12:57 Results for this PM EDT procedure are i n the results section. HEMOGRAM STAT 01/06/2019 12:55 Results for this PM EDT procedure are i n the results section. DIFFERENTIAL, AUTOMATED STAT 01/06/2019 12:55 Results for this PM EDT procedure are i n the results section. CBC (WITH DIFF) STAT 01/06/2019 12:55 PM EDT PHOSPHORUS Routine 01/06/2019 12:55 Results for this PM EDT procedure are i n the results section. MAGNESIUM Routine 01/06/2019 12:55 Results for this PM EDT procedure are i n the results section. BASIC METABOLIC PANEL STAT 01/06/2019 12:55 Re sults for this (NON-FASTING) PM EDT procedure are in the results section. POCT GLUCOSE Routine 01/06/2019 12:00 Results for this PM EDT procedure are i n the results section. POCT GLUCOSE Routine 01/06/2019 11:31 Results for this AM EDT procedure are i n the results section. US RETROPERITONEAL Routine 01/06/2019 11:29 Resul ts for this COMPLETE AM EDT procedure are i n the results section. POCT GLUCOSE Routine 01/06/2019 10:10 Results for this AM EDT procedure are i n the results section. POCT GLUCOSE Routine 01/06/2019 8:51 Results for this AM EDT procedure are i n the results section. POCT GLUCOSE Routine 01/06/2019 8:01 Results for this AM EDT procedure are i n the results section. POCT GLUCOSE Routine 01/06/2019 7:04 Results for this AM EDT procedure are i n the results section. POCT GLUCOSE Routine 01/06/2019 5:58 Results for this AM EDT procedure are i n the results section. POCT GLUCOSE Routine 01/06/2019 5:17 Results for this AM EDT procedure are i n the results section. HEMOGRAM STAT 01/06/2019 4:20 Results for this AM EDT procedure are i n the results section. DIFFERENTIAL, AUTOMATED STAT 01/06/2019 4:20 R esults for this AM EDT procedure are i n the results section. CBC (WITH DIFF) STAT 01/06/2019 4:20 AM EDT PHOSPHORUS Routine 01/06/2019 4:20 Results for this AM EDT procedure are i n the results section. MAGNESIUM Routine 01/06/2019 4:20 Results for this AM EDT procedure are i n the results section. BASIC METABOLIC PANEL STAT 01/06/2019 4:20 Res ults for this (NON-FASTING) AM EDT procedure are in the results section. POCT GLUCOSE Routine 01/06/2019 4:00 Results for this AM EDT procedure are i n the results section. POCT GLUCOSE Routine 01/06/2019 2:59 Results for this AM EDT procedure are i n the results section. POCT GLUCOSE Routine 01/06/2019 1:50 Results for this AM EDT procedure are i n the results section. POCT GLUCOSE Routine 01/06/2019 1:07 Results for this AM EDT procedure are i n the results section. POCT GLUCOSE Routine 01/05/2019 11:55 Results for this PM EDT procedure are i n the results section. POCT GLUCOSE Routine 01/05/2019 10:55 Results for this PM EDT procedure are i n the results section. POCT GLUCOSE Routine 01/05/2019 10:08 Results for this PM EDT procedure are i n the results section. POCT GLUCOSE Routine 01/05/2019 9:12 Results for this PM EDT procedure are i n the results section. POCT GLUCOSE Routine 01/05/2019 8:11 Results for this PM EDT procedure are i n the results section. POCT GLUCOSE Routine 01/05/2019 7:04 Results for this PM EDT procedure are i n the results section. POCT GLUCOSE Routine 01/05/2019 5:34 Results for this PM EDT procedure are i n the results section. HEMOGRAM STAT 01/05/2019 5:10 Results for this PM EDT procedure are i n the results section. DIFFERENTIAL, AUTOMATED STAT 01/05/2019 5:10 R esults for this PM EDT procedure are i n the results section. CBC (WITH DIFF) STAT 01/05/2019 5:10 PM EDT POCT GLUCOSE Routine 01/05/2019 5:09 Results for this PM EDT procedure are i n the results section. BLOOD GAS 2 ARTERIAL Routine 01/05/2019 4:26 Resu lts for this PM EDT procedure are i n the results section. POCT GLUCOSE Routine 01/05/2019 4:15 Results for this PM EDT procedure are i n the results section. TROPONIN STAT 01/05/2019 4:15 Results for this PM EDT procedure are i n the results section. PHOSPHORUS STAT 01/05/2019 4:15 Results for this PM EDT procedure are i n the results section. MAGNESIUM STAT 01/05/2019 4:15 Results for this PM EDT procedure are i n the results section. BASIC METABOLIC PANEL STAT 01/05/2019 4:15 Res ults for this (NON-FASTING) PM EDT procedure are in the results section. POCT GLUCOSE Routine 01/05/2019 2:52 Results for this PM EDT procedure are i n the results section. ECHOCARDIOGRAM COMPLETE Routine 01/05/2019 1:12 Other cardiomy opathy Results for this W CONTRAST PM EDT procedure are i n the results section. POCT GLUCOSE Routine 01/05/2019 12:05 Results for this PM EDT procedure are i n the results section. POCT GLUCOSE Routine 01/05/2019 11:06 Results for this AM EDT procedure are i n the results section. URINALYSIS MICROSCOPIC Routine 01/05/2019 10:35 R esults for this EXAM AM EDT procedure are i n the results section. URINALYSIS WITH REFLEX Routine 01/05/2019 10:35 R esults for this CULTURE AM EDT procedure are i n the results section. URINE CULTURE Routine 01/05/2019 10:35 Results fo r this AM EDT procedure are i n the results section. POCT GLUCOSE Routine 01/05/2019 10:02 Results for this AM EDT procedure are i n the results section. HEMOGRAM Routine 01/05/2019 10:00 Results for this AM EDT procedure are i n the results section. DIFFERENTIAL, AUTOMATED Routine 01/05/2019 10:00 Results for this AM EDT procedure are i n the results section. LAVENDER TUBE HOLD Routine 01/05/2019 10:00 Resul ts for this AM EDT procedure are i n the results section. TROPONIN STAT 01/05/2019 10:00 Results for this AM EDT procedure are i n the results section. PHOSPHORUS Routine 01/05/2019 10:00 Results for this AM EDT procedure are i n the results section. MAGNESIUM Routine 01/05/2019 10:00 Results for this AM EDT procedure are i n the results section. BASIC METABOLIC PANEL STAT 01/05/2019 10:00 Re sults for this (NON-FASTING) AM EDT procedure are in the results section. POCT GLUCOSE Routine 01/05/2019 9:06 Results for this AM EDT procedure are i n the results section. COOX2 Routine 01/05/2019 8:37 Results for this AM EDT procedure are i n the results section. BLOOD GAS 2 ARTERIAL Routine 01/05/2019 8:28 Resu lts for this AM EDT procedure are i n the results section. POCT GLUCOSE Routine 01/05/2019 8:10 Results for this AM EDT procedure are i n the results section. POCT GLUCOSE Routine 01/05/2019 6:46 Results for this AM EDT procedure are i n the results section. POCT GLUCOSE Routine 01/05/2019 5:46 Results for this AM EDT procedure are i n the results section. BLOOD GAS 2 ARTERIAL Routine 01/05/2019 5:43 Resu lts for this AM EDT procedure are i n the results section. XR ABDOMEN 1 VIEW STAT 01/05/2019 5:00 Results for this AM EDT procedure are i n the results section. XR CHEST ONE VIEW STAT 01/05/2019 4:47 Results for this AM EDT procedure are i n the results section. COOX2 Routine 01/05/2019 4:30 Results for this AM EDT procedure are i n the results section. TROPONIN STAT 01/05/2019 4:30 Results for this AM EDT procedure are i n the results section. POCT GLUCOSE Routine 01/05/2019 3:46 Results for this AM EDT procedure are i n the results section. LYSIS OF ADHESIONS,ABD. Routine 01/05/2019 2:51 AM EDT BLOOD GAS 2 ARTERIAL Routine 01/05/2019 2:39 Resu lts for this AM EDT procedure are i n the results section. BLOOD GAS 2 ARTERIAL Routine 01/05/2019 1:59 Resu lts for this AM EDT procedure are i n the results section. BLOOD CULTURE STAT 01/05/2019 1:30 Results for this AM EDT procedure are i n the results section. BLOOD GAS 2 ARTERIAL Routine 01/05/2019 1:21 Resu lts for this AM EDT procedure are i n the results section. EXPLORATORY LAPAROTOMY, Routine 01/05/2019 12:23 WITH/WITHOUT BIOPSY(S) AM EDT POCT GLUCOSE Routine 01/05/2019 12:21 Results for this AM EDT procedure are i n the results section. XR CHEST ONE VIEW STAT 01/04/2019 11:23 Result s for this PM EDT procedure are i n the results section. POCT GLUCOSE Routine 01/04/2019 10:44 Results for this PM EDT procedure are i n the results section. POCT GLUCOSE Routine 01/04/2019 9:42 Results for this PM EDT procedure are i n the results section. EKG 12-LEAD STAT 01/04/2019 9:29 Results for this PM EDT procedure are i n the results section. ABORH RECHECK STATUS STAT 01/04/2019 9:26 Resu lts for this PM EDT procedure are i n the results section. ABO/RH TYPING STAT 01/04/2019 9:26 Results for this PM EDT procedure are i n the results section. ANTIBODY SCREEN STAT 01/04/2019 9:26 Results f or this PM EDT procedure are i n the results section. TYPE AND SCREEN STAT 01/04/2019 9:26 ([facility]) PM EDT PEREZ TUBE HOLD STAT 01/04/2019 9:25 Results fo r this PM EDT procedure are i n the results section. SCAN, PERIPHERAL BLOOD STAT 01/04/2019 9:25 Re sults for this PM EDT procedure are i n the results section. HEMOGRAM STAT 01/04/2019 9:25 Results for this PM EDT procedure are i n the results section. DIFFERENTIAL, AUTOMATED STAT 01/04/2019 9:25 R esults for this PM EDT procedure are i n the results section. D-DIMER, QUANTITATIVE STAT 01/04/2019 9:25 Res ults for this PM EDT procedure are i n the results section. GOLD TUBE HOLD STAT 01/04/2019 9:25 Results fo r this PM EDT procedure are i n the results section. APTT STAT 01/04/2019 9:25 Results for this PM EDT procedure are i n the results section. PROTHROMBIN TIME STAT 01/04/2019 9:25 Results for this PM EDT procedure are i n the results section. CBC (WITH DIFF) STAT 01/04/2019 9:25 PM EDT TROPONIN STAT 01/04/2019 9:25 Results for this PM EDT procedure are i n the results section. TSH STAT 01/04/2019 9:25 Results for this PM EDT procedure are i n the results section. PHOSPHORUS STAT 01/04/2019 9:25 Results for this PM EDT procedure are i n the results section. MAGNESIUM STAT 01/04/2019 9:25 Results for this PM EDT procedure are i n the results section. LIPASE STAT 01/04/2019 9:25 Results for this PM EDT procedure are i n the results section. HEPATIC FUNCTION PANEL STAT 01/04/2019 9:25 Re sults for this PM EDT procedure are i n the results section. BASIC METABOLIC PANEL STAT 01/04/2019 9:25 Res ults for this (NON-FASTING) PM EDT procedure are in the results section. BLOOD GAS 2 ARTERIAL Routine 01/04/2019 9:24 Resu lts for this PM EDT procedure are i n the results section. documented in this encounter Results (ABNORMAL) POCT Glucose (01/15/2019 11:09 AM EDT) athologist Signature POC Glucose 222 (H) 65 - 199 [place] mg/dL [facility] Comment: Supplemental ranges: <140 mg/dL before meals <180 mg/dL all other times of the day Specimen Anatomical Collection Method Collection Time Receive d Time (Source) Location / / Volume Laterality Blood specimen 01/15/2019 11:09 9 (specimen) AM EDT 11:09 AM EDT Kelsey Eaton MD POINT OF CARE TEST ORDERABLE S Performing Organization Address City/[facility]/[place] [address] (ABNORMAL) POCT Glucose (01/15/2019 7:26 AM EDT) athologist Signature POC Glucose 214 (H) 65 - 199 [place] mg/dL [facility] Comment: Supplemental ranges: <140 mg/dL before meals <180 mg/dL all other times of the day Specimen Anatomical Collection Method Collection Time Receive d Time (Source) Location / / Volume Laterality Blood specimen 01/15/2019 7:26 AM 019 7:26 (specimen) EDT AM EDT Kelsey Eaton MD POINT OF CARE TEST ORDERABLE S Performing Organization Address City/[facility]/ZIP Code Phon e Number [address] POCT Glucose (01/15/2019 6:43 AM EDT) athologist Signature POC Glucose 194 65 - 199 [place] mg/dL [facility] Comment: Supplemental ranges: <140 mg/dL before meals <180 mg/dL all other times of the day Specimen Anatomical Collection Method Collection Time Receive d Time (Source) Location / / Volume Laterality Blood specimen 01/15/2019 6:43 AM 019 6:43 (specimen) EDT AM EDT Kelsey Eaton MD POINT OF CARE TEST ORDERABLE S Performing Organization Address City/State/ZIP [place] [address] (ABNORMAL) Differential, Automated (01/15/2019 5:04 AM EDT) [facility] gist Method Time Signature Neutrophils % 58.1 % [facility] Neutr Abs (ANC) 6.59 (H) 1.70 - [facility] 6.10 [facility] x10(3)/[facility] LABORATORY Lymphocytes % 29.9 % [facility] Lymphocytes Abs 3.4 (H) 0.9 - 3.2 [facility] x10(3)/[facility] LABORATORY Monocytes % 7.8 % [facility] Monocyte Abs 0.9 0.3 - 0.9 [facility] x10(3)/[facility] LABORATORY Eosinophils % 2.8 % [facility] Eosinophils Abs 0.3 0.0 - 0.4 [facility] x10(3)/[facility] LABORATORY Basophils % 0.3 % [facility] Basophils Abs 0.0 0.0 - 0.1 [facility] x10(3)/[facility] LABORATORY Immature Gran % 1.10 % [facility] Comment: Immature granulocytes(IG's)percentage an d absolute count will include metamyelocytes, myelocytes, and promyelo cytes. Blood smears from CBCs yielding IG's will be scanned manually for concor dance. If this scan disagrees with the automated IG or if promyelocytes are not ed, a manual differential will be performed. Irina Gran Abs 0.12 (H) 0.00 - 0.04 x10(3)/[facility] LABORATORY Specimen Anatomical Collection Method Collection Time Receive d Time (Source) Location / / Volume Laterality Blood specimen 01/15/2019 5:04 AM 019 5:50 (specimen) EDT AM EDT Resulting Agency Comment Spec In Lab Carlos Eduardo Tai MD HEMATOLOGY ORDERABLES Performing Organization Address City/State/ZIP Code Phon e Number [facility] [address] (ABNORMAL) Hemogram (01/15/2019 5:04 AM EDT) [facility] gist Method Time Signature WBC 11.3 (H) 4.0 - 9.5 [facility] x[facility](3[facility] LABORATORY RBC 3.42 (L) 4.00 - [place] 5.21 [facility] x10(6)/[facility] LABORATORY Hemoglobin 10.0 (L) 11.7 - [place] 15.5 gm/dL [facility] Hematocrit 32.3 (L) 35.7 - [facility] 45.8 % [facility] MCV 94.4 82.6 - [facility] 94.4 [facility] LABORATORY MCH 29.2 27.1 - [place] 32.0 pg [facility] MCHC 31.0 (L) 31.7 - [facility] 35.0 gm/dL [facility] Platelets 261 145 - 357 [facility] x10(3)/[facility] LABORATORY RDWSD 45.9 37.0 - [facility] 46.0 [facility] LABORATORY RDWCV 13.6 11.5 - [facility] 14.1 % [facility] MPV 10.9 7.6 - 12.9 [facility] nRBC % Auto 0.2 % [facility] nRBC Abs Auto 0.020 (H) 0.000 - [place] 0.000 [facility] x10(3)/[facility] LABORATORY Specimen Anatomical Collection Method Collection Time Receive d Time (Source) Location / / Volume Laterality Blood specimen 01/15/2019 5:04 AM 019 5:50 (specimen) EDT AM EDT Resulting Agency Comment Spec In Lab Carlos Eduardo Tai MD HEMATOLOGY ORDERABLES Performing Organization Address City/State/ZIP [place] [address] [facility] [address] Magnesium (01/15/2019 5:04 AM EDT) athologist Signature Magnesium 0.69 0.69 - 1.07 [facility] mmol/L [facility] Specimen Anatomical Collection Method Collection Time Receive d Time (Source) Location / / Volume Laterality Blood specimen 01/15/2019 5:04 AM 019 5:50 (specimen) EDT AM EDT Resulting Agency Comment Spec In Lab Kelsey Eaton MD CHEMISTRY ORDERABLES Performing Organization Address City/State/ZIP Code Phon e Number [address] (ABNORMAL) Basic Metabolic Panel (non-fasting) (01/15/2019 5:04 AM EDT) athologist Signature Glucose Lvl 175 65 - 199 [facility] mg/dL [facility] Comment: Diabetes: >=200 mg/dL plus symp toms BUN 3 (L) 8 - 18 mg/dL [facility] Creatinine 0.51 (L) 0.70 - 1.20 mg/dL [facility] Sodium 143 135 - 145 mmol/L [facility] Potassium 3.0 (Critical) 3.5 - 5.0 mmol/L [facility] Comment: Called by: [facility], Read back by: Kurt davis, Date/Time:01/15/19 06:31. Please note: ??Patients with WBC >100,00 0 may have falsely elevated Potassium levels. ??For accurate Potassium quantif ication in these patients send serum separator tube (gold top) for subsequent determinations. ??Contact the Clinical Chemistry Laboratory if there are any qu estions. Chloride 112 (H) 98 - 107 mmol/L [facility] CO2 20 (L) 22 - 31 mmol/L [facility] Anion Gap 11 5 - 15 mmol/L [facility] Calcium 9.4 8.5 - 10.5 mg/dL [facility] Estimated GFR 105 >=60 mL/min/1.73 m?? [facility] Comment: The eGFR was calculated using the CKD-EP I equation. As with all creatinine based estimates of kidney function, eGFR values calculated with the CKD-EPI equation are not accurate in patients wi th acute kidney failure, extremes of body mass or the acutely ill. http://[employer]/[facility]kf eGFR 122 >=60 mL/min/1.73 m?? [facility] Comment: The eGFR was calculated using the CKD-EP I equation. As with all creatinine based estimates of kidney function, eGFR values calculated with the CKD-EPI equation are not accurate in patients wi th acute kidney failure, extremes of body mass or the acutely ill. http://[employer]/[facility]kf Specimen Anatomical Collection Method Collection Time Receive d Time (Source) Location / / Volume Laterality Blood specimen 01/15/2019 5:04 AM 019 5:50 (specimen) EDT AM EDT Resulting Agency Comment Spec In Lab Kelsey Eaton MD CHEMISTRY ORDERABLES Performing Organization Address City/[facility]/[place] [address] (ABNORMAL) POCT Glucose (01/14/2019 8:10 PM EDT) athologist Signature POC Glucose 201 (H) 65 - 199 [facility] mg/dL [facility] Comment: Supplemental ranges: <140 mg/dL before meals <180 mg/dL all other times of the day Specimen Anatomical Collection Method Collection Time Receive d Time (Source) Location / / Volume Laterality Blood specimen 01/14/2019 8:10 PM 019 8:10 (specimen) EDT PM EDT Kelsey Eaton MD POINT OF CARE TEST ORDERABLE S Performing Organization Address City/[facility]/ZIP Code Phon e Number [address] POCT Glucose (01/14/2019 4:28 PM EDT) athologist Signature POC Glucose 186 65 - 199 [facility]dL [facility] Comment: Supplemental ranges: <140 mg/dL before meals <180 mg/dL all other times of the day Specimen Anatomical Collection Method Collection Time Receive d Time (Source) Location / / Volume Laterality Blood specimen 01/14/2019 4:28 PM 019 4:28 (specimen) EDT PM EDT Kelsey Eaton MD POINT OF CARE TEST ORDERABLE S Performing Organization Address City/State/ZIP Code Phon e Number [address] POCT Glucose (01/14/2019 12:01 PM EDT) P athologist Signature POC Glucose 199 65 - 199 [facility] Comment: Supplemental ranges: <140 mg/dL before meals <180 mg/dL all other times of the day Specimen Anatomical Collection Method Collection Time Receive d Time (Source) Location / / Volume Laterality Blood specimen 01/14/2019 12:01 9 (specimen) PM EDT 12:01 PM EDT Kelsey Eaton MD POINT OF CARE TEST ORDERABLE S Performing Organization Address City/State/ZIP Code Phon e Number [address] (ABNORMAL) POCT Glucose (01/14/2019 6:47 AM EDT) P athologist Signature POC Glucose 208 (H) 65 - 199 [facility]/dL [facility] Comment: Supplemental ranges: <140 mg/dL before meals <180 mg/dL all other times of the day Specimen Anatomical Collection Method Collection Time Receive d Time (Source) Location / / Volume Laterality Blood specimen 01/14/2019 6:47 AM 019 6:47 (specimen) EDT AM EDT Kelsey Eaton MD POINT OF CARE TEST ORDERABLE S Performing Organization Address City/State/ZIP Code Phon e Number [address] (ABNORMAL) Differential, Automated (01/14/2019 5:47 AM EDT) Patholo gist Method Time Signature Neutrophils % 56.9 % [facility] Neutr Abs (ANC) 6.15 (H) 1.70 - [facility] 6.10 [facility] x10(3)/[facility] LABORATORY Lymphocytes % 31.1 % [facility] Lymphocytes Abs 3.4 (H) 0.9 - 3.2 [facility] x10(3)/[facility] LABORATORY Monocytes % 7.6 % [facility] Monocyte Abs 0.8 0.3 - 0.9 [facility] x10(3)/[facility] LABORATORY Eosinophils % 2.9 % [facility] Eosinophils Abs 0.3 0.0 - 0.4 [facility] x10(3)/[facility] LABORATORY Basophils % 0.3 % [facility] Basophils Abs 0.0 0.0 - 0.1 [facility] x10(3)/[facility] LABORATORY Immature Gran % 1.20 % [facility] Comment: Immature granulocytes(IG's)percentage an d absolute count will include metamyelocytes, myelocytes, and promyelo cytes. Blood smears from CBCs yielding IG's will be scanned manually for concor dance. If this scan disagrees with the automated IG or if promyelocytes are not ed, a manual differential will be performed. Irina Gran Abs 0.13 (H) 0.00 - 0.04 x10(3)/[facility] LABORATORY Specimen Anatomical Collection Method Collection Time Receive d Time (Source) Location / / Volume Laterality Blood specimen 01/14/2019 5:47 AM 019 6:18 (specimen) EDT AM EDT Resulting Agency Comment Spec In Lab Carlos Eduardo Tai MD HEMATOLOGY ORDERABLES Performing Organization Address City/State/ZIP [place] [address] (ABNORMAL) Hemogram (01/14/2019 5:47 AM EDT) Analysis Performed At Patho logist Time Signature WBC 10.8 (H) 4.0 - 9.5 [facility] x10(3)/[facility] LABORATORY RBC 3.20 (L) 4.00 - [facility] 5.21 [facility] x10(6)/[facility] LABORATORY Hemoglobin 9.5 (L) 11.7 - [place] 15.5 gm/dL [facility] Hematocrit 30.4 (L) 35.7 - [place] 45.8 % [facility] MCV 95.0 (H) 82.6 - [facility] 94.4 [facility] LABORATORY MCH 29.7 27.1 - [place] 32.0 pg [facility] MCHC 31.3 (L) 31.7 - [place] 35.0 gm/dL [facility] Platelets 274 145 - 357 [facility] x10(3)/[facility] LABORATORY RDWSD 45.8 37.0 - [place] 46.0 [facility] LABORATORY RDWCV 13.3 11.5 - [facility] 14.1 % [facility] MPV 10.2 7.6 - 12.9 [facility] LABORATORY nRBC % Auto 0.0 % [facility] nRBC Abs Auto 0.000 0.000 - [place] 0.000 [facility] x10(3)/[facility] LABORATORY Specimen Anatomical Collection Method Collection Time Receive d Time (Source) Location / / Volume Laterality Blood specimen 01/14/2019 5:47 AM 019 6:18 (specimen) EDT AM EDT Resulting Agency Comment Spec In Lab Carlos Eduardo Tai MD HEMATOLOGY ORDERABLES Performing Organization Address City/State/ZIP [place] [address] Magnesium (01/14/2019 5:47 AM EDT) P athologist Signature Magnesium 0.71 0.69 - 1.07 [facility] mmol/L [facility] Specimen Anatomical Collection Method Collection Time Receive d Time (Source) Location / / Volume Laterality Blood specimen 01/14/2019 5:47 AM 019 6:18 (specimen) EDT AM EDT Resulting Agency Comment Spec In Lab Kelsey Eaton MD CHEMISTRY ORDERABLES Performing Organization Address City/State/ZIP [place] [address] (ABNORMAL) Basic Metabolic Panel (non-fasting) (01/14/2019 5:47 AM EDT) P athologist Signature Glucose Lvl 180 65 - 199 [facility] mg/dL [facility] Comment: Diabetes: >=200 mg/dL plus symp toms BUN 5 (L) 8 - 18 mg/dL [facility] Creatinine 0.52 (L) 0.70 - 1.20 mg/dL [facility] Sodium 141 135 - 145 mmol/L [facility] Potassium 2.8 (Critical) 3.5 - 5.0 mmol/L [facility] Comment: Results rechecked Called by: alecia, Read back by: kurt grey, Date/Time:01/14/19 07:13. Please note: ??Patients with WBC >100,00 0 may have falsely elevated Potassium levels. ??For accurate Potassium quantif ication in these patients send serum separator tube (gold top) for subsequent determinations. ??Contact the Clinical Chemistry Laboratory if there are any qu estions. Chloride 111 (H) 98 - 107 mmol/L [facility] CO2 19 (L) 22 - 31 mmol/L [facility] Anion Gap 11 5 - 15 mmol/L [facility] Calcium 9.2 8.5 - 10.5 mg/dL [facility] Estimated GFR 105 >=60 mL/min/1.73 m?? [facility] Comment: The eGFR was calculated using the CKD-EP I equation. As with all creatinine based estimates of kidney function, eGFR values calculated with the CKD-EPI equation are not accurate in patients wi th acute kidney failure, extremes of body mass or the acutely ill. [email or web address]/DHnkf eGFR 121 >=60 mL/min/1.73 m?? [facility] Comment: The eGFR was calculated using the CKD-EP I equation. As with all creatinine based estimates of kidney function, eGFR values calculated with the CKD-EPI equation are not accurate in patients wi th acute kidney failure, extremes of body mass or the acutely ill. [email or web address] Specimen Anatomical Collection Method Collection Time Receive d Time (Source) Location / / Volume Laterality Blood specimen 01/14/2019 5:47 AM 019 6:18 (specimen) EDT AM EDT Resulting Agency Comment Spec In Lab Kelsey Eaton MD CHEMISTRY ORDERABLES Performing Organization Address City/State/ZIP Code Phon e Number [address] POCT Glucose (01/13/2019 7:45 PM EDT) athologist Signature POC Glucose 144 65 - 199 [facility]/dL [facility] Comment: Supplemental ranges: <140 mg/dL before meals <180 mg/dL all other times of the day Specimen Anatomical Collection Method Collection Time Receive d Time (Source) Location / / Volume Laterality Blood specimen 01/13/2019 7:45 PM 019 7:45 (specimen) EDT PM EDT Kelsey Eaton MD POINT OF CARE TEST ORDERABLE S Performing Organization Address City/[facility]/[place] [address] (ABNORMAL) POCT Glucose (01/13/2019 4:30 PM EDT) P athologist Signature POC Glucose 205 (H) 65 - 199 [facility] mg/dL [facility] Comment: Supplemental ranges: <140 mg/dL before meals <180 mg/dL all other times of the day Specimen Anatomical Collection Method Collection Time Receive d Time (Source) Location / / Volume Laterality Blood specimen 01/13/2019 4:30 PM 019 4:30 (specimen) EDT PM EDT Kelsey Eaton MD POINT OF CARE TEST ORDERABLE S Performing Organization Address City/[facility]/ZIP Code Phon e Number [address] (ABNORMAL) POCT Glucose (01/13/2019 2:21 PM EDT) P athologist Signature POC Glucose 201 (H) 65 - 199 [facility] mg/dL [facility] Comment: Supplemental ranges: <140 mg/dL before meals <180 mg/dL all other times of the day Specimen Anatomical Collection Method Collection Time Receive d Time (Source) Location / / Volume Laterality Blood specimen 01/13/2019 2:21 PM 019 2:21 (specimen) EDT PM EDT Kelsey Eaton MD POINT OF CARE TEST ORDERABLE S Performing Organization Address City/[facility]/[place] [address] (ABNORMAL) POCT Glucose (01/13/2019 11:07 AM EDT) athologist Signature POC Glucose 228 (H) 65 - 199 [facility] mg/dL [facility] Comment: Supplemental ranges: <140 mg/dL before meals <180 mg/dL all other times of the day Specimen Anatomical Collection Method Collection Time Receive d Time (Source) Location / / Volume Laterality Blood specimen 01/13/2019 11:07 9 (specimen) AM EDT 11:07 AM EDT Kelsey Eaton MD POINT OF CARE TEST ORDERABLE S Performing Organization Address City/[facility]/[place] [address] (ABNORMAL) Phosphorus (01/13/2019 8:26 AM EDT) athologist Signature Phosphorus 2.1 (L) 2.5 - 4.5 [place] mg/dL [facility] Specimen Anatomical Collection Method Collection Time Receive d Time (Source) Location / / Volume Laterality Blood specimen Venous Draw / 01/13/2019 8:26 AM 2018 8:56 (specimen) Unknown EDT AM EDT Resulting Agency Comment Spec In Lab Carlos Eduardo Tai MD CHEMISTRY ORDERABLES Performing Organization Address City/[facility]/[place] [address] (ABNORMAL) Basic Metabolic Panel (non-fasting) (01/13/2019 8:26 AM EDT) P athologist Signature Glucose Lvl 228 (H) 65 - 199 [facility] mg/dL [facility] Comment: Diabetes: >=200 mg/dL plus symp toms BUN 8 8 - 18 mg/dL [facility] Creatinine 0.51 (L) 0.70 - 1.20 mg/dL [facility] Sodium 143 135 - 145 mmol/L [facility] Potassium 3.2 (L) 3.5 - 5.0 mmol/L [facility] Comment: Please note: ??Patients with WBC >100,00 0 may have falsely elevated Potassium levels. ??For accurate Potassium quantif ication in these patients send serum separator tube (gold top) for subsequent determinations. ??Contact the Clinical Chemistry Laboratory if there are any qu estions. Chloride 113 (H) 98 - 107 mmol/L [facility] CO2 19 (L) 22 - 31 mmol/L [facility] Anion Gap 11 5 - 15 mmol/L [facility] Calcium 9.8 8.5 - 10.5 mg/dL [facility] Estimated GFR 105 >=60 mL/min/1.73 m?? [facility] Comment: The eGFR was calculated using the CKD-EP I equation. As with all creatinine based estimates of kidney function, eGFR values calculated with the CKD-EPI equation are not accurate in patients wi th acute kidney failure, extremes of body mass or the acutely ill. http://[employer]/[facility] TULSAnkf eGFR 122 >=60 mL/min/1.73 m?? [facility] Comment: The eGFR was calculated using the CKD-EP I equation. As with all creatinine based estimates of kidney function, eGFR values calculated with the CKD-EPI equation are not accurate in patients wi th acute kidney failure, extremes of body mass or the acutely ill. http://[employer]/[facility]ULSAnkf Specimen Anatomical Collection Method Collection Time Receive d Time (Source) Location / / Volume Laterality Blood specimen 01/13/2019 8:26 AM 019 8:50 (specimen) EDT AM EDT Resulting Agency Comment Spec In Lab Kelsey Eaton MD CHEMISTRY ORDERABLES Performing Organization Address City/[facility]/ZIP Code Phon e Number [address] (ABNORMAL) Magnesium (01/13/2019 8:26 AM EDT) P athologist Signature Magnesium 0.64 (L) 0.69 - 1.07 [facility] mmol/L [facility] Specimen Anatomical Collection Method Collection Time Receive d Time (Source) Location / / Volume Laterality Blood specimen 01/13/2019 8:26 AM 019 8:50 (specimen) EDT AM EDT Resulting Agency Comment Spec In Lab Andria Pena III, MD CHEMISTRY ORDERABLES Performing Organization Address City/[facility]/ZIP Code Phon e Number [address] POCT Glucose (01/13/2019 6:50 AM EDT) P athologist Signature POC Glucose 198 65 - 199 [facility]dL [facility] LABOR[facility]ORY Comment: Supplemental ranges: <140 mg/dL before meals <180 mg/dL all other times of the day Specimen Anatomical Collection Method Collection Time Receive d Time (Source) Location / / Volume Laterality Blood specimen 01/13/2019 6:50 AM 019 6:50 (specimen) EDT AM EDT Kelsey Eaton MD POINT OF CARE TEST ORDERABLE S Performing Organization Address City/[facility]/[place] [address] (ABNORMAL) Hemogram (01/13/2019 6:46 AM EDT) Analysis Performed At Patho logist Time Signature WBC 11.3 (H) 4.0 - 9.5 [facility] x10(3)/[facility] LABORATORY RBC 3.10 (L) 4.00 - [place] 5.21 [facility] x10(6)/[facility] LABORATORY Hemoglobin 9.3 (L) 11.7 - [facility]/dL [facility] Hematocrit 29.2 (L) 35.7 - [facility] 45.8 % [facility] LABORATORY MCV 94.2 82.6 - [place] 94.4 [facility] LABORATORY MCH 30.0 27.1 - [place] 32.0 pg [facility] LABORATORY MCHC 31.8 31.7 - [place] 35.0 gm/dL [facility] LABORATORY Platelets 275 145 - 357 [facility] x10(3)/[facility] LABORATORY RDWSD 45.2 37.0 - [place] 46.0 [facility] LABORATORY RDWCV 13.2 11.5 - [facility] 14.1 % [facility] LABORATORY MPV 10.7 7.6 - 12.9 [facility] LABORATORY nRBC % Auto 0.0 % [facility] LABORATORY nRBC Abs Auto 0.000 0.000 - [facility] 0.000 [facility] x10(3)/[facility] LABORATORY Specimen Anatomical Collection Method Collection Time Receive d Time (Source) Location / / Volume Laterality Blood specimen Venous Draw / 01/13/2019 6:46 AM 2018 8:16 (specimen) Unknown EDT AM EDT Resulting Agency Comment Spec In Lab Carlos Eduardo Tai MD HEMATOLOGY ORDERABLES Performing Organization Address City/State/ZIP Code Phon e Number [address] Green Tube HOLD (01/13/2019 6:46 AM EDT) P athologist Signature Green Hold Sample in [facility]. [facility] LABORATORY Specimen Anatomical Collection Method Collection Time Receive d Time (Source) Location / / Volume Laterality Blood specimen Venous Draw / 01/13/2019 6:46 AM 2018 6:57 (specimen) Unknown EDT AM EDT Kelsey Eaton MD CHEMISTRY ORDERABLES Performing Organization Address City/State/[place] [address] (ABNORMAL) Hemoglobin A1c (01/13/2019 6:46 AM EDT) Analysis Performed At Patho logist Time Signature Hemoglobin A1C 7.9 (H) 4.3 - 5.6 [facility] LABORATORY Comment: Reference Range: 4.3 - 5.6% 5.7 - 6.4% - Increased Risk of Developin g Diabetes Mellitus >= 6.5% - Consistent with diagnosis of D iabetes Mellitus In the absence of hyperglycemia (i.e. pl asma glucose > 200 mg/dL) or classic symptoms of hyperglycemia a repeat measu rement of HbA1c should be performed on a separate sample to confirm the diagnos is. Diagnosis and Classification of Diabetes Mellitus, Diabetes Care 2013; 36: Suppl. 1, S67-03 Est Avg Gluc 180 mg/dL [facility] Comment: eAG equivalents for HbA1c percentages: HbA1c(%) ?eAG(mg/dL) 6.0 ?126 6.5 ?140 7.0 ?154 7.5 ?169 8.0 ?183 8.5 ?197 9.0 ?212 9.5 ?226 10.0 ? 240 Limitations: The eAG calculation has not been validated on women, individuals below 18 years old and above 70 years old, and individuals with hemoglobinopathies. Additional resources are available on [employer] ADA website. Godfrey VALENCIA, Yumiko J, Herminia R, et al. ??Tr anslating the A1C assay into estimated average glucose values. ??Diabetes Care 2008:31(8):4826-9597. Specimen Anatomical Collection Method Collection Time Receive d Time (Source) Location / / Volume Laterality Blood specimen 01/13/2019 6:46 AM 019 6:56 (specimen) EDT AM EDT Resulting Agency Comment Spec In Lab Kelsey Eaton MD CHEMISTRY ORDERABLES Performing Organization Address City/State/ZIP [place] [address] POCT Glucose (01/13/2019 4:57 AM EDT) athologist Signature POC Glucose 194 65 - 199 [place] mg/dL [facility] LABORATORY Comment: Supplemental ranges: <140 mg/dL before meals <180 mg/dL all other times of the day Specimen Anatomical Collection Method Collection Time Receive d Time (Source) Location / / Volume Laterality Blood specimen 01/13/2019 4:57 AM 019 4:57 (specimen) EDT AM EDT Kelsey Eaton MD POINT OF CARE TEST ORDERABLE S Performing Organization Address City/State/[place] [address] (ABNORMAL) POCT Glucose (01/13/2019 2:04 AM EDT) athologist Signature POC Glucose 205 (H) 65 - 199 [place] mg/dL [facility] LAB[facility] Comment: Supplemental ranges: <140 mg/dL before meals <180 mg/dL all other times of the day Specimen Anatomical Collection Method Collection Time Receive d Time (Source) Location / / Volume Laterality Blood specimen 01/13/2019 2:04 AM 019 2:04 (specimen) EDT AM EDT Kelsey Eaton MD POINT OF CARE TEST ORDERABLE S Performing Organization Address City/State/ZIP Code Phon e Number [place] [id number] POCT Glucose (01/12/2019 8:49 PM EDT) athologist Signature POC Glucose 190 65 - 199 [place] [facility] mg/dL [facility] Comment: Supplemental ranges: <140 mg/dL before meals <180 mg/dL all other times of the day Specimen Anatomical Collection Method Collection Time Receive d Time (Source) Location / / Volume Laterality Blood specimen 01/12/2019 8:49 PM 019 8:49 (specimen) EDT PM EDT Kelsey Eaton MD POINT OF CARE TEST ORDERABLE S Performing Organization Address City/State/ZIP [place] [address] (ABNORMAL) Basic Metabolic Panel (non-fasting) (01/12/2019 4:15 PM EDT) P athologist Signature Glucose Lvl 241 (H) 65 - 199 [facility] mg/dL [facility] LABORATORY Comment: Diabetes: >=200 mg/dL plus symp toms BUN 9 8 - 18 mg/dL [facility] LABORATORY Creatinine 0.53 (L) 0.70 - 1.20 mg/dL [facility] LABORATORY Sodium 143 135 - 145 mmol/L [facility] LABORATORY Potassium Not Perf 3.5 - 5.0 [facility] LABORATORY Comment: Called by: SALOME, Read back by: Britt Hall , Date/Time:01/12/19 17:38. Unable to quantitate due to sample hemol ysis. ??Sample redraw suggested. Please note: ??Patients with WBC >100,00 0 may have falsely elevated Potassium levels. ??For accurate Potassium quantif ication in these patients send serum separator tube (gold top) for subsequent determinations. ??Contact the Clinical Chemistry Laboratory if there are any qu estions. Chloride 114 (H) 98 - 107 mmol/L [facility] LABORATORY CO2 17 (L) 22 - 31 mmol/L [facility] LABOR[facility] Anion Gap 12 5 - 15 mmol/L [facility] LABORATORY Calcium 9.8 8.5 - 10.5 mg/dL [facility] LABORATORY Estimated GFR 104 >=60 mL/min/1.73 m?? [facility] Comment: The eGFR was calculated using the CKD-EP I equation. As with all creatinine based estimates of kidney function, eGFR values calculated with the CKD-EPI equation are not accurate in patients wi th acute kidney failure, extremes of body mass or the acutely ill. http://[employer]/DHMCnkf eGFR 120 >=60 mL/min/1.73 m?? [facility] Comment: The eGFR was calculated using the CKD-EP I equation. As with all creatinine based estimates of kidney function, eGFR values calculated with the CKD-EPI equation are not accurate in patients wi th acute kidney failure, extremes of body mass or the acutely ill. http://[employer]/[facility] TULSAnkf Specimen Anatomical Collection Method Collection Time Receive d Time (Source) Location / / Volume Laterality Blood specimen 01/12/2019 4:15 PM 019 4:28 (specimen) EDT PM EDT Resulting Agency Comment Spec In Lab Andria Pena III, MD CHEMISTRY ORDERABLES Performing Organization Address City/[facility]/[place] [address] (ABNORMAL) POCT Glucose (01/12/2019 4:14 PM EDT) athologist Signature POC Glucose 231 (H) 65 - 199 [place] mg/dL [facility] Comment: Supplemental ranges: <140 mg/dL before meals <180 mg/dL all other times of the day Specimen Anatomical Collection Method Collection Time Receive d Time (Source) Location / / Volume Laterality Blood specimen 01/12/2019 4:14 PM 019 4:14 (specimen) EDT PM EDT Kelsey Eaton MD POINT OF CARE TEST ORDERABLE S Performing Organization Address City/[facility]/[place] [address] POCT Glucose (01/12/2019 12:38 PM EDT) athologist Signature POC Glucose 175 65 - 199 [place] mg/dL [facility] Comment: Supplemental ranges: <140 mg/dL before meals <180 mg/dL all other times of the day Specimen Anatomical Collection Method Collection Time Receive d Time (Source) Location / / Volume Laterality Blood specimen 01/12/2019 12:38 9 (specimen) PM EDT 12:38 PM EDT Kelsey Eaton MD POINT OF CARE TEST ORDERABLE S Performing Organization Address City/[facility]/[place] [address] (ABNORMAL) Hemogram (01/12/2019 11:45 AM EDT) Analysis Performed At Patho logist Time Signature WBC 10.4 (H) 4.0 - 9.5 [facility] x10(3[facility] LABORATORY RBC 3.26 (L) 4.00 - [place] 5.21 [facility] x10(6)/[facility] LABORATORY Hemoglobin 9.7 (L) 11.7 - [facility] 15.5 gm/dL [facility] Hematocrit 31.2 (L) 35.7 - [facility] 45.8 % [facility]ATORY MCV 95.7 (H) 82.6 - [facility] 94.4 [facility] LABORATORY MCH 29.8 27.1 - [place] 32.0 pg [facility] LABORATORY MCHC 31.1 (L) 31.7 - [facility] 35.0 gm/dL [facility] Platelets 241 145 - 357 [facility] x10(3)/[facility] LABORATORY RDWSD 46.6 (H) 37.0 - [place] 46.0 [facility] LABORATORY RDWCV 13.2 11.5 - [place] 14.1 % [facility] LABORATORY MPV 10.1 7.6 - 12.9 [facility] LABORATORY nRBC % Auto 0.0 % [facility] LABORATORY nRBC Abs Auto 0.000 0.000 - [place] 0.000 [facility] x10(3)/[facility] LABORATORY Specimen Anatomical Collection Method Collection Time Receive d Time (Source) Location / / Volume Laterality Blood specimen 01/12/2019 11:45 9 (specimen) AM EDT 12:02 PM EDT Resulting Agency Comment Spec In Lab Kelsey Eaton MD HEMATOLOGY ORDERABLES Performing Organization Address City/State/ZIP [place] [address] (ABNORMAL) POCT Glucose (01/12/2019 11:44 AM EDT) P athologist Signature POC Glucose 201 (H) 65 - 199 [facility] mg/dL [facility] Comment: Supplemental ranges: <140 mg/dL before meals <180 mg/dL all other times of the day Specimen Anatomical Collection Method Collection Time Receive d Time (Source) Location / / Volume Laterality Blood specimen 01/12/2019 11:44 9 (specimen) AM EDT 11:44 AM EDT Kelsey Eaton MD POINT OF CARE TEST ORDERABLE S Performing Organization Address City/[facility]/[place] [address] (ABNORMAL) Hepatic Function Panel (01/12/2019 11:31 AM EDT) athologist Signature Total Protein 6.3 6.1 - 8.0 [facility] gm/dL [facility] Albumin 3.1 (L) 3.2 - 5.2 [facility] gm/dL [facility] AST 14 0 - 30 [facility] unit/L [facility] ALT 10 0 - 30 [facility] unit/L [facility] Alk Phos 79 40 - 104 [facility] unit/L [facility] Total 0.3 0.2 - 1.3 [facility] Bilirubin mg/dL [facility] LABOR[facility] Bili, Direct 0.1 0.0 - 0.3 [facility] mg/dL [facility]ORY Specimen Anatomical Collection Method Collection Time Receive d Time (Source) Location / / Volume Laterality Blood specimen 01/12/2019 11:31 9 (specimen) AM EDT 11:50 AM EDT Resulting Agency Comment Spec In Lab Kelsey Eaton MD CHEMISTRY ORDERABLES Performing Organization Address City/[facility]/ZIP [place] [address] (ABNORMAL) Basic Metabolic Panel (non-fasting) (01/12/2019 11:31 AM EDT) P athologist Signature Glucose Lvl 212 (H) 65 - 199 [facility] mg/dL [facility] Comment: Diabetes: >=200 mg/dL plus symp toms BUN 10 8 - 18 mg/dL [facility]ORATORY Creatinine 0.53 (L) 0.70 - 1.20 mg/dL [facility] LABORATORY Sodium 144 135 - 145 mmol/L [facility]OR[facility] Potassium 3.6 3.5 - 5.0 mmol/L [facility] Comment: Please note: ??Patients with WBC >100,00 0 may have falsely elevated Potassium levels. ??For accurate Potassium quantif ication in these patients send serum separator tube (gold top) for subsequent determinations. ??Contact the Clinical Chemistry Laboratory if there are any qu estions. Chloride 115 (H) 98 - 107 mmol/L [facility] CO2 18 (L) 22 - 31 mmol/L [facility] Anion Gap 11 5 - 15 mmol/L [facility] Calcium 9.7 8.5 - 10.5 mg/dL [facility]OR[facility] Estimated GFR 104 >=60 mL/min/1.73 m?? [facility] Comment: The eGFR was calculated using the CKD-EP I equation. As with all creatinine based estimates of kidney function, eGFR values calculated with the CKD-EPI equation are not accurate in patients wi th acute kidney failure, extremes of body mass or the acutely ill. http://[employer]/[facility]ULSAnkf eGFR 120 >=60 mL/min/1.73 m?? [facility] Comment: The eGFR was calculated using the CKD-EP I equation. As with all creatinine based estimates of kidney function, eGFR values calculated with the CKD-EPI equation are not accurate in patients wi th acute kidney failure, extremes of body mass or the acutely ill. http://[employer]/[facility] TULSAnkf Specimen Anatomical Collection Method Collection Time Receive d Time (Source) Location / / Volume Laterality Blood specimen 01/12/2019 11:31 9 (specimen) AM EDT 11:50 AM EDT Resulting Agency Comment Spec In Lab Andria Pena III, MD CHEMISTRY ORDERABLES Performing Organization Address City/State/ZIP [place] [address] (ABNORMAL) Phosphorus (01/12/2019 11:31 AM EDT) athologist Signature Phosphorus 1.9 (L) 2.5 - 4.5 [facility] mg/dL [facility] Specimen Anatomical Collection Method Collection Time Receive d Time (Source) Location / / Volume Laterality Blood specimen 01/12/2019 11:31 9 (specimen) AM EDT 11:50 AM EDT Resulting Agency Comment Spec In Lab Kelsey Eaton MD CHEMISTRY ORDERABLES Performing Organization Address City/State/[place] [address] (ABNORMAL) POCT Glucose (01/12/2019 10:37 AM EDT) athologist Signature POC Glucose 220 (H) 65 - 199 [place] mg/dL [facility] Comment: Supplemental ranges: <140 mg/dL before meals <180 mg/dL all other times of the day Specimen Anatomical Collection Method Collection Time Receive d Time (Source) Location / / Volume Laterality Blood specimen 01/12/2019 10:37 9 (specimen) AM EDT 10:37 AM EDT Kelsey Eaton MD POINT OF CARE TEST ORDERABLE S Performing Organization Address City/State/ZIP Code Phon e Number [address] POCT Glucose (01/12/2019 9:37 AM EDT) athologist Signature POC Glucose 183 65 - 199 [place] mg/dL [facility] Comment: Supplemental ranges: <140 mg/dL before meals <180 mg/dL all other times of the day Specimen Anatomical Collection Method Collection Time Receive d Time (Source) Location / / Volume Laterality Blood specimen 01/12/2019 9:37 AM 019 9:37 (specimen) EDT AM EDT Kelsey Eaton MD POINT OF CARE TEST ORDERABLE S Performing Organization Address City/State/ZIP Code Phon e Number [address] POCT Glucose (01/12/2019 8:36 AM EDT) athologist Signature POC Glucose 177 65 - 199 [place] mg/dL [facility] Comment: Supplemental ranges: <140 mg/dL before meals <180 mg/dL all other times of the day Specimen Anatomical Collection Method Collection Time Receive d Time (Source) Location / / Volume Laterality Blood specimen 01/12/2019 8:36 AM 019 8:36 (specimen) EDT AM EDT Kelsey Eaton MD POINT OF CARE TEST ORDERABLE S Performing Organization Address City/State/ZIP Code Phon e Number [address] POCT Glucose (01/12/2019 7:33 AM EDT) athologist Signature POC Glucose 179 65 - 199 [place] mg/dL [facility] Comment: Supplemental ranges: <140 mg/dL before meals <180 mg/dL all other times of the day Specimen Anatomical Collection Method Collection Time Receive d Time (Source) Location / / Volume Laterality Blood specimen 01/12/2019 7:33 AM 019 7:33 (specimen) EDT AM EDT Andria Pena III, MD POINT OF CARE TEST ORDER ELINA Performing Organization Address City/State/ZIP Code Phon e Number [address] POCT Glucose (01/12/2019 6:33 AM EDT) athologist Signature POC Glucose 147 65 - 199 [place] mg/dL [facility] Comment: Supplemental ranges: <140 mg/dL before meals <180 mg/dL all other times of the day Specimen Anatomical Collection Method Collection Time Receive d Time (Source) Location / / Volume Laterality Blood specimen 01/12/2019 6:33 AM 019 6:33 (specimen) EDT AM EDT Andria Pena III, MD POINT OF CARE TEST ORDER ELINA Performing Organization Address City/State/ZIP Code Phon e Number [address] POCT Glucose (01/12/2019 6:04 AM EDT) athologist Signature POC Glucose 124 65 - 199 [place] mg/dL [facility] Comment: Supplemental ranges: <140 mg/dL before meals <180 mg/dL all other times of the day Specimen Anatomical Collection Method Collection Time Receive d Time (Source) Location / / Volume Laterality Blood specimen 01/12/2019 6:04 AM 019 6:04 (specimen) EDT AM EDT Andria Pena III, MD POINT OF CARE TEST ORDER ELINA Performing Organization Address City/State/ZIP Code Phon e Number [address] POCT Glucose (01/12/2019 5:10 AM EDT) athologist Signature POC Glucose 137 65 - 199 [place] mg/dL [facility] Comment: Supplemental ranges: <140 mg/dL before meals <180 mg/dL all other times of the day Specimen Anatomical Collection Method Collection Time Receive d Time (Source) Location / / Volume Laterality Blood specimen 01/12/2019 5:10 AM 019 5:10 (specimen) EDT AM EDT Andria Pena III, MD POINT OF CARE TEST ORDER ELINA Performing Organization Address City/State/ZIP Code Phon e Number [address] POCT Glucose (01/12/2019 4:14 AM EDT) athologist Signature POC Glucose 141 65 - 199 [place] mg/dL [facility] Comment: Supplemental ranges: <140 mg/dL before meals <180 mg/dL all other times of the day Specimen Anatomical Collection Method Collection Time Receive d Time (Source) Location / / Volume Laterality Blood specimen 01/12/2019 4:14 AM 019 4:14 (specimen) EDT AM EDT Andria Pena III, MD POINT OF CARE TEST ORDER ELINA Performing Organization Address City/State/ZIP Code Phon e Number [address] POCT Glucose (01/12/2019 3:20 AM EDT) athologist Signature POC Glucose 145 65 - 199 [place] mg/dL [facility] Comment: Supplemental ranges: <140 mg/dL before meals <180 mg/dL all other times of the day Specimen Anatomical Collection Method Collection Time Receive d Time (Source) Location / / Volume Laterality Blood specimen 01/12/2019 3:20 AM 019 3:20 (specimen) EDT AM EDT Andria Pena III, MD POINT OF CARE TEST ORDER ELINA Performing Organization Address City/State/[place] [address] POCT Glucose (01/12/2019 2:00 AM EDT) athologist Signature POC Glucose 143 65 - 199 [place] mg/dL [facility] Comment: Supplemental ranges: <140 mg/dL before meals <180 mg/dL all other times of the day Specimen Anatomical Collection Method Collection Time Receive d Time (Source) Location / / Volume Laterality Blood specimen 01/12/2019 2:00 AM 019 2:00 (specimen) EDT AM EDT Andria Pena III, MD POINT OF CARE TEST ORDER ELINA Performing Organization Address City/State/ZIP Code Phon e Number [address] POCT Glucose (01/12/2019 12:58 AM EDT) athologist Signature POC Glucose 148 65 - 199 [place] mg/dL [facility] Comment: Supplemental ranges: <140 mg/dL before meals <180 mg/dL all other times of the day Specimen Anatomical Collection Method Collection Time Receive d Time (Source) Location / / Volume Laterality Blood specimen 01/12/2019 12:58 9 (specimen) AM EDT 12:58 AM EDT Andria Pena III, MD POINT OF CARE TEST ORDER ELINA Performing Organization Address City/State/ZIP Code Phon e Number [address] POCT Glucose (01/11/2019 11:58 PM EDT) athologist Signature POC Glucose 142 65 - 199 [place] mg/dL [facility] Comment: Supplemental ranges: <140 mg/dL before meals <180 mg/dL all other times of the day Specimen Anatomical Collection Method Collection Time Receive d Time (Source) Location / / Volume Laterality Blood specimen 01/11/2019 11:58 9 (specimen) PM EDT 11:58 PM EDT Kelsey Eaton MD POINT OF CARE TEST ORDERABLE S Performing Organization Address City/State/[place] [address] POCT Glucose (01/11/2019 10:44 PM EDT) athologist Signature POC Glucose 131 65 - 199 [place] mg/dL [facility] Comment: Supplemental ranges: <140 mg/dL before meals <180 mg/dL all other times of the day Specimen Anatomical Collection Method Collection Time Receive d Time (Source) Location / / Volume Laterality Blood specimen 01/11/2019 10:44 9 (specimen) PM EDT 10:44 PM EDT Kelsey Eaton MD POINT OF CARE TEST ORDERABLE S Performing Organization Address City/State/[place] [address] POCT Glucose (01/11/2019 10:07 PM EDT) athologist Signature POC Glucose 126 65 - 199 [place] mg/dL [facility] Comment: Supplemental ranges: <140 mg/dL before meals <180 mg/dL all other times of the day Specimen Anatomical Collection Method Collection Time Receive d Time (Source) Location / / Volume Laterality Blood specimen 01/11/2019 10:07 9 (specimen) PM EDT 10:07 PM EDT Kelsey Eaton MD POINT OF CARE TEST ORDERABLE S Performing Organization Address City/State/ZIP Code Phon e Number [address] POCT Glucose (01/11/2019 9:01 PM EDT) athologist Signature POC Glucose 170 65 - 199 [place] mg/dL [facility] Comment: Supplemental ranges: <140 mg/dL before meals <180 mg/dL all other times of the day Specimen Anatomical Collection Method Collection Time Receive d Time (Source) Location / / Volume Laterality Blood specimen 01/11/2019 9:01 PM 019 9:01 (specimen) EDT PM EDT Kelsey Eaton MD POINT OF CARE TEST ORDERABLE S Performing Organization Address City/State/[place] [address] POCT Glucose (01/11/2019 7:46 PM EDT) athologist Signature POC Glucose 141 65 - 199 [place] mg/dL [facility] Comment: Supplemental ranges: <140 mg/dL before meals <180 mg/dL all other times of the day Specimen Anatomical Collection Method Collection Time Receive d Time (Source) Location / / Volume Laterality Blood specimen 01/11/2019 7:46 PM 019 7:46 (specimen) EDT PM EDT Kelsey Eaton MD POINT OF CARE TEST ORDERABLE S Performing Organization Address City/State/[place] [address] POCT Glucose (01/11/2019 6:06 PM EDT) athologist Signature POC Glucose 160 65 - 199 [place] mg/dL [facility] Comment: Supplemental ranges: <140 mg/dL before meals <180 mg/dL all other times of the day Specimen Anatomical Collection Method Collection Time Receive d Time (Source) Location / / Volume Laterality Blood specimen 01/11/2019 6:06 PM 019 6:06 (specimen) EDT PM EDT Kelsey Eaton MD POINT OF CARE TEST ORDERABLE S Performing Organization Address City/State/[place] [address] (ABNORMAL) Basic Metabolic Panel (non-fasting) (01/11/2019 6:05 PM EDT) athologist Signature Glucose Lvl 169 65 - 199 [place] mg/dL [facility] Comment: Diabetes: >=200 mg/dL plus symp toms BUN 16 8 - 18 mg/dL [facility] Creatinine 0.58 (L) 0.70 - 1.20 mg/dL [facility] Sodium 146 (H) 135 - 145 mmol/L [facility] Potassium 3.2 (L) 3.5 - 5.0 mmol/L [facility] Comment: Please note: ??Patients with WBC >100,00 0 may have falsely elevated Potassium levels. ??For accurate Potassium quantif ication in these patients send serum separator tube (gold top) for subsequent determinations. ??Contact the Clinical Chemistry Laboratory if there are any qu estions. Chloride 116 (H) 98 - 107 mmol/L [facility] CO2 19 (L) 22 - 31 mmol/L [facility] Anion Gap 11 5 - 15 mmol/L [facility] Calcium 9.7 8.5 - 10.5 mg/dL [facility] Estimated GFR 101 >=60 mL/min/1.73 m?? [facility] Comment: The eGFR was calculated using the CKD-EP I equation. As with all creatinine based estimates of kidney function, eGFR values calculated with the CKD-EPI equation are not accurate in patients wi th acute kidney failure, extremes of body mass or the acutely ill. http://[employer]/[facility]ULSAnkf eGFR 117 >=60 mL/min/1.73 m?? [facility] Comment: The eGFR was calculated using the CKD-EP I equation. As with all creatinine based estimates of kidney function, eGFR values calculated with the CKD-EPI equation are not accurate in patients wi th acute kidney failure, extremes of body mass or the acutely ill. http://[employer]/[facility] TULSAnkf Specimen Anatomical Collection Method Collection Time Receive d Time (Source) Location / / Volume Laterality Blood specimen 01/11/2019 6:05 PM 019 6:21 (specimen) EDT PM EDT Resulting Agency Comment Spec In Lab Kelsey Eaton MD CHEMISTRY ORDERABLES Performing Organization Address City/State/[place] [address] POCT Glucose (01/11/2019 5:25 PM EDT) athologist Signature POC Glucose 150 65 - 199 [place] mg/dL [facility] Comment: Supplemental ranges: <140 mg/dL before meals <180 mg/dL all other times of the day Specimen Anatomical Collection Method Collection Time Receive d Time (Source) Location / / Volume Laterality Blood specimen 01/11/2019 5:25 PM 019 5:25 (specimen) EDT PM EDT Kelsey Eaton MD POINT OF CARE TEST ORDERABLE S Performing Organization Address City/State/[place] [address] POCT Glucose (01/11/2019 4:22 PM EDT) athologist Signature POC Glucose 178 65 - 199 [place] mg/dL [facility] Comment: Supplemental ranges: <140 mg/dL before meals <180 mg/dL all other times of the day Specimen Anatomical Collection Method Collection Time Receive d Time (Source) Location / / Volume Laterality Blood specimen 01/11/2019 4:22 PM 019 4:22 (specimen) EDT PM EDT Kelsey Eaton MD POINT OF CARE TEST ORDERABLE S Performing Organization Address City/State/[place] [address] (ABNORMAL) POCT Glucose (01/11/2019 3:08 PM EDT) athologist Signature POC Glucose 212 (H) 65 - 199 [place] mg/dL [facility] Comment: Supplemental ranges: <140 mg/dL before meals <180 mg/dL all other times of the day Specimen Anatomical Collection Method Collection Time Receive d Time (Source) Location / / Volume Laterality Blood specimen 01/11/2019 3:08 PM 019 3:08 (specimen) EDT PM EDT Kelsey Eaton MD POINT OF CARE TEST ORDERABLE S Performing Organization Address City/State/[place] [address] POCT Glucose (01/11/2019 1:53 PM EDT) athologist Signature POC Glucose 182 65 - 199 [facility] Comment: Supplemental ranges: <140 mg/dL before meals <180 mg/dL all other times of the day Specimen Anatomical Collection Method Collection Time Receive d Time (Source) Location / / Volume Laterality Blood specimen 01/11/2019 1:53 PM 019 1:53 (specimen) EDT PM EDT Kelsey Eaton MD POINT OF CARE TEST ORDERABLE S Performing Organization Address City/[facility]/[place] [address] C. Difficile Screen (01/11/2019 1:33 PM EDT) Analysis Performed At Patho logist Time Signature C Diff Screen Negative Negative [facility] Comment: C. diff ??Negative Clostridium difficile is not present in the specimen. If patient is having diarrhea suspected to be from an infecti ous cause, then Contact Precautions are still required. Specimen Anatomical Collection Method Collection Time Receive d Time (Source) Location / / Volume Laterality Stool specimen 01/11/2019 1:33 PM 019 1:53 (specimen) EDT PM EDT Resulting Agency Comment Spec In Lab Kelsey Eaton MD MICROBIOLOGY - GENERAL ORDER ELINA Performing Organization Address City/[facility]/[place] [address] POCT Glucose (01/11/2019 12:49 PM EDT) athologist Signature POC Glucose 164 65 - 199 [facility] Comment: Supplemental ranges: <140 mg/dL before meals <180 mg/dL all other times of the day Specimen Anatomical Collection Method Collection Time Receive d Time (Source) Location / / Volume Laterality Blood specimen 01/11/2019 12:49 9 (specimen) PM EDT 12:49 PM EDT Kelsey Eaton MD POINT OF CARE TEST ORDERABLE S Performing Organization Address City/State/ZIP Code Phon e Number [address] POCT Glucose (01/11/2019 11:59 AM EDT) athologist Signature POC Glucose 160 65 - 199 [place] mg/dL [facility] Comment: Supplemental ranges: <140 mg/dL before meals <180 mg/dL all other times of the day Specimen Anatomical Collection Method Collection Time Receive d Time (Source) Location / / Volume Laterality Blood specimen 01/11/2019 11:59 9 (specimen) AM EDT 11:59 AM EDT Kelsey Eaton MD POINT OF CARE TEST ORDERABLE S Performing Organization Address City/State/[place] [address] POCT Glucose (01/11/2019 10:45 AM EDT) athologist Signature POC Glucose 181 65 - 199 [facility] mg/dL [facility] Comment: Supplemental ranges: <140 mg/dL before meals <180 mg/dL all other times of the day Specimen Anatomical Collection Method Collection Time Receive d Time (Source) Location / / Volume Laterality Blood specimen 01/11/2019 10:45 9 (specimen) AM EDT 10:45 AM EDT Kelsey Eaton MD POINT OF CARE TEST ORDERABLE S Performing Organization Address City/State/[place] [address] (ABNORMAL) Basic Metabolic Panel (non-fasting) (01/11/2019 10:45 AM EDT) athologist Signature Glucose Lvl 182 65 - 199 [place] mg/dL [facility] Comment: Diabetes: >=200 mg/dL plus symp toms BUN 20 (H) 8 - 18 mg/dL [facility] Creatinine 0.60 (L) 0.70 - 1.20 mg/dL [facility] Sodium 147 (H) 135 - 145 mmol/L [facility] Potassium 2.9 (Critical) 3.5 - 5.0 mmol/L [facility] Comment: Called by: radha, Read back by: dangelo codroba, Date/Time:01/11/19 11:36. Please note: ??Patients with WBC >100,00 0 may have falsely elevated Potassium levels. ??For accurate Potassium quantif ication in these patients send serum separator tube (gold top) for subsequent determinations. ??Contact the Clinical Chemistry Laboratory if there are any qu estions. Chloride 116 (H) 98 - 107 mmol/L [facility] CO2 20 (L) 22 - 31 mmol/L [facility] Anion Gap 11 5 - 15 mmol/L [facility] Calcium 9.4 8.5 - 10.5 mg/dL [facility] Estimated GFR 100 >=60 mL/min/1.73 m?? [facility] Comment: The eGFR was calculated using the CKD-EP I equation. As with all creatinine based estimates of kidney function, eGFR values calculated with the CKD-EPI equation are not accurate in patients wi th acute kidney failure, extremes of body mass or the acutely ill. http://[employer]/[facility]SAnkf eGFR 116 >=60 mL/min/1.73 m?? [facility] Comment: The eGFR was calculated using the CKD-EP I equation. As with all creatinine based estimates of kidney function, eGFR values calculated with the CKD-EPI equation are not accurate in patients wi th acute kidney failure, extremes of body mass or the acutely ill. http://[employer]/DHnkf Specimen Anatomical Collection Method Collection Time Receive d Time (Source) Location / / Volume Laterality Blood specimen 01/11/2019 10:45 9 (specimen) AM EDT 10:52 AM EDT Resulting Agency Comment Spec In Lab Kelsey Eaton MD CHEMISTRY ORDERABLES Performing Organization Address City/State/ZIP [place] [address] POCT Glucose (01/11/2019 10:06 AM EDT) athologist Signature POC Glucose 198 65 - 199 [place] mg/dL [facility] Comment: Supplemental ranges: <140 mg/dL before meals <180 mg/dL all other times of the day Specimen Anatomical Collection Method Collection Time Receive d Time (Source) Location / / Volume Laterality Blood specimen 01/11/2019 10:06 9 (specimen) AM EDT 10:06 AM EDT Kelsey Eaton MD POINT OF CARE TEST ORDERABLE S Performing Organization Address City/State/ZIP Code Phon e Number [address] POCT Glucose (01/11/2019 8:25 AM EDT) athologist Signature POC Glucose 192 65 - 199 [facility] mg/dL [facility] Comment: Supplemental ranges: <140 mg/dL before meals <180 mg/dL all other times of the day Specimen Anatomical Collection Method Collection Time Receive d Time (Source) Location / / Volume Laterality Blood specimen 01/11/2019 8:25 AM 019 8:25 (specimen) EDT AM EDT Andria Pena III, MD POINT OF CARE TEST ORDER ELINA Performing Organization Address City/[facility]/ZIP Code Phon e Number [address] POCT Glucose (01/11/2019 7:38 AM EDT) athologist Signature POC Glucose 198 65 - 199 [place] mg/dL [facility] Comment: Supplemental ranges: <140 mg/dL before meals <180 mg/dL all other times of the day Specimen Anatomical Collection Method Collection Time Receive d Time (Source) Location / / Volume Laterality Blood specimen 01/11/2019 7:38 AM 019 7:38 (specimen) EDT AM EDT Andria Pena III, MD POINT OF CARE TEST ORDER ELINA Performing Organization Address City/State/ZIP Code Phon e Number [address] POCT Glucose (01/11/2019 6:13 AM EDT) athologist Signature POC Glucose 174 65 - 199 [facility] mg/dL [facility] Comment: Supplemental ranges: <140 mg/dL before meals <180 mg/dL all other times of the day Specimen Anatomical Collection Method Collection Time Receive d Time (Source) Location / / Volume Laterality Blood specimen 01/11/2019 6:13 AM 019 6:13 (specimen) EDT AM EDT Andria Pena III, MD POINT OF CARE TEST ORDER ELINA Performing Organization Address City/State/ZIP [place] [address] (ABNORMAL) Basic Metabolic Panel (non-fasting) (01/11/2019 5:20 AM EDT) athologist Signature Glucose Lvl 137 65 - 199 [facility] mg/dL [facility] Comment: Diabetes: >=200 mg/dL plus symp toms BUN 24 (H) 8 - 18 mg/dL [facility] Creatinine 0.62 (L) 0.70 - 1.20 mg/dL [facility] Sodium 153 (H) 135 - 145 mmol/L [facility] Potassium 3.2 (L) 3.5 - 5.0 mmol/L [facility] Comment: Please note: ??Patients with WBC >100,00 0 may have falsely elevated Potassium levels. ??For accurate Potassium quantif ication in these patients send serum separator tube (gold top) for subsequent determinations. ??Contact the Clinical Chemistry Laboratory if there are any qu estions. Chloride 119 (H) 98 - 107 mmol/L [facility] CO2 Not Perf [facility] Comment: Add-on request. Sample too old to perform test. Anion Gap Unable to Calculate 5 - 15 mmol/L [facility] Calcium 10.0 8.5 - 10.5 mg/dL [facility] Estimated GFR 99 >=60 mL/min/1.73 m?? [facility] Comment: The eGFR was calculated using the CKD-EP I equation. As with all creatinine based estimates of kidney function, eGFR values calculated with the CKD-EPI equation are not accurate in patients wi th acute kidney failure, extremes of body mass or the acutely ill. http://[employer]/[facility]ULSAnkf eGFR 114 >=60 mL/min/1.73 m?? [facility] Comment: The eGFR was calculated using the CKD-EP I equation. As with all creatinine based estimates of kidney function, eGFR values calculated with the CKD-EPI equation are not accurate in patients wi th acute kidney failure, extremes of body mass or the acutely ill. http://[employer]/[facility]ULSAnkf Specimen Anatomical Collection Method Collection Time Receive d Time (Source) Location / / Volume Laterality Blood specimen Venous Draw / 01/11/2019 5:20 AM 2018 5:43 (specimen) Unknown EDT AM EDT Resulting Agency Comment Spec In Lab Carlos Eduardo Tai MD CHEMISTRY ORDERABLES Performing Organization Address City/[facility]/ZIP Code Phon e Number [address] Magnesium (01/11/2019 5:20 AM EDT) P athologist Signature Magnesium 0.78 0.69 - 1.07 [facility] mmol/L [facility] Specimen Anatomical Collection Method Collection Time Receive d Time (Source) Location / / Volume Laterality Blood specimen 01/11/2019 5:20 AM 019 5:43 (specimen) EDT AM EDT Resulting Agency Comment Spec In Lab Andria Pena III, MD CHEMISTRY ORDERABLES Performing Organization Address City/[facility]/[place] [address] (ABNORMAL) Hemogram (01/11/2019 5:20 AM EDT) Analysis Performed At Patho logist Time Signature WBC 11.6 (H) 4.0 - 9.5 [facility] x10(3)/[facility] LABORATORY RBC 3.08 (L) 4.00 - [facility] 5.21 [facility] x10(6)/[facility] LABORATORY Hemoglobin 9.1 (L) 11.7 - [place] 15.5 gm/dL [facility] Hematocrit 29.8 (L) 35.7 - [place] 45.8 % [facility] MCV 96.8 (H) 82.6 - [place] 94.4 [facility] LABORATORY MCH 29.5 27.1 - [place] 32.0 pg [facility] MCHC 30.5 (L) 31.7 - [place] 35.0 gm/dL [facility] Platelets 246 145 - 357 [facility] x10(3)/[facility] LABORATORY RDWSD 48.9 (H) 37.0 - [place] 46.0 [facility] LABORATORY RDWCV 13.9 11.5 - [place] 14.1 % [facility] MPV 10.8 7.6 - 12.9 [facility] LABORATORY nRBC % Auto 0.0 % [facility] nRBC Abs Auto 0.000 0.000 - [place] 0.000 [facility] x10(3)/[facility] LABORATORY Specimen Anatomical Collection Method Collection Time Receive d Time (Source) Location / / Volume Laterality Blood specimen 01/11/2019 5:20 AM 019 5:41 (specimen) EDT AM EDT Resulting Agency Comment Spec In Lab Andria Pena III, MD HEMATOLOGY ORDERABLES Performing Organization Address City/[facility]/[place] [address] (ABNORMAL) Phosphorus (01/11/2019 5:20 AM EDT) P athologist Signature Phosphorus 2.2 (L) 2.5 - 4.5 [place] mg/dL [facility] Specimen Anatomical Collection Method Collection Time Receive d Time (Source) Location / / Volume Laterality Blood specimen 01/11/2019 5:20 AM 019 5:43 (specimen) EDT AM EDT Resulting Agency Comment Spec In Lab Andria Pena III, MD CHEMISTRY ORDERABLES Performing Organization Address City/[facility]/[place] [address] POCT Glucose (01/11/2019 5:04 AM EDT) athologist Signature POC Glucose 127 65 - 199 [place] mg/dL [facility] Comment: Supplemental ranges: <140 mg/dL before meals <180 mg/dL all other times of the day Specimen Anatomical Collection Method Collection Time Receive d Time (Source) Location / / Volume Laterality Blood specimen 01/11/2019 5:04 AM 019 5:04 (specimen) EDT AM EDT Andria Pena III, MD POINT OF CARE TEST ORDER ELINA Performing Organization Address City/State/ZIP Code Phon e Number [address] POCT Glucose (01/11/2019 4:21 AM EDT) athologist Signature POC Glucose 132 65 - 199 [facility] Comment: Supplemental ranges: <140 mg/dL before meals <180 mg/dL all other times of the day Specimen Anatomical Collection Method Collection Time Receive d Time (Source) Location / / Volume Laterality Blood specimen 01/11/2019 4:21 AM 019 4:21 (specimen) EDT AM EDT Andria Pena III, MD POINT OF CARE TEST ORDER ELINA Performing Organization Address City/State/ZIP Code Phon e Number [address] POCT Glucose (01/11/2019 3:03 AM EDT) athologist Signature POC Glucose 167 65 - 199 [facility] mg/dL [facility] Comment: Supplemental ranges: <140 mg/dL before meals <180 mg/dL all other times of the day Specimen Anatomical Collection Method Collection Time Receive d Time (Source) Location / / Volume Laterality Blood specimen 01/11/2019 3:03 AM 019 3:03 (specimen) EDT AM EDT Andria Pena III, MD POINT OF CARE TEST ORDER ELINA Performing Organization Address City/State/ZIP Code Phon e Number [address] (ABNORMAL) POCT Glucose (01/11/2019 2:02 AM EDT) athologist Signature POC Glucose 213 (H) 65 - 199 [place] mg/dL [facility] Comment: Supplemental ranges: <140 mg/dL before meals <180 mg/dL all other times of the day Specimen Anatomical Collection Method Collection Time Receive d Time (Source) Location / / Volume Laterality Blood specimen 01/11/2019 2:02 AM 019 2:02 (specimen) EDT AM EDT Andria Pena III, MD POINT OF CARE TEST ORDER ELINA Performing Organization Address City/State/ZIP Code Phon e Number [address] (ABNORMAL) POCT Glucose (01/11/2019 1:06 AM EDT) athologist Signature POC Glucose 238 (H) 65 - 199 [facility] mg/dL [facility] Comment: Supplemental ranges: <140 mg/dL before meals <180 mg/dL all other times of the day Specimen Anatomical Collection Method Collection Time Receive d Time (Source) Location / / Volume Laterality Blood specimen 01/11/2019 1:06 AM 019 1:06 (specimen) EDT AM EDT Andria Pena III, MD POINT OF CARE TEST ORDER ELINA Performing Organization Address City/[facility]/[place] [address] (ABNORMAL) POCT Glucose (01/11/2019 12:22 AM EDT) athologist Signature POC Glucose 269 (H) 65 - 199 [place] mg/dL [facility] Comment: Supplemental ranges: <140 mg/dL before meals <180 mg/dL all other times of the day Specimen Anatomical Collection Method Collection Time Receive d Time (Source) Location / / Volume Laterality Blood specimen 01/11/2019 12:22 9 (specimen) AM EDT 12:22 AM EDT Andria Pena III, MD POINT OF CARE TEST ORDER ELINA Performing Organization Address City/State/ZIP Code Phon e Number [address] (ABNORMAL) POCT Glucose (01/10/2019 11:05 PM EDT) athologist Signature POC Glucose 232 (H) 65 - 199 [facility] mg/dL [facility] Comment: Supplemental ranges: <140 mg/dL before meals <180 mg/dL all other times of the day Specimen Anatomical Collection Method Collection Time Receive d Time (Source) Location / / Volume Laterality Blood specimen 01/10/2019 11:05 9 (specimen) PM EDT 11:05 PM EDT Andria Pena III, MD POINT OF CARE TEST ORDER ELINA Performing Organization Address City/State/ZIP Code Phon e Number [address] Magnesium (01/10/2019 10:08 PM EDT) athologist Signature Magnesium 0.80 0.69 - 1.07 [facility] mmol/L [facility] Specimen Anatomical Collection Method Collection Time Receive d Time (Source) Location / / Volume Laterality Blood specimen 01/10/2019 10:08 9 (specimen) PM EDT 10:20 PM EDT Resulting Agency Comment Spec In Lab Andria Pena III, MD CHEMISTRY ORDERABLES Performing Organization Address City/[facility]/[place] [address] (ABNORMAL) Phosphorus (01/10/2019 10:08 PM EDT) athologist Signature Phosphorus 2.2 (L) 2.5 - 4.5 [facility] mg/dL [facility] Comment: delta result rechecked-KLA Specimen Anatomical Collection Method Collection Time Receive d Time (Source) Location / / Volume Laterality Blood specimen 01/10/2019 10:08 9 (specimen) PM EDT 10:20 PM EDT Resulting Agency Comment Spec In Lab Andria Pena III, MD CHEMISTRY ORDERABLES Performing Organization Address City/[facility]/[place] [address] (ABNORMAL) Basic Metabolic Panel (non-fasting) (01/10/2019 10:08 PM EDT) athologist Signature Glucose Lvl 223 (H) 65 - 199 [facility] mg/dL [facility] Comment: Diabetes: >=200 mg/dL plus symp toms BUN 28 (H) 8 - 18 mg/dL [facility] Creatinine 0.65 (L) 0.70 - 1.20 mg/dL [facility] Sodium 152 (H) 135 - 145 mmol/L [facility] Potassium 3.4 (L) 3.5 - 5.0 mmol/L [facility] Comment: Please note: ??Patients with WBC >100,00 0 may have falsely elevated Potassium levels. ??For accurate Potassium quantif ication in these patients send serum separator tube (gold top) for subsequent determinations. ??Contact the Clinical Chemistry Laboratory if there are any qu estions. Chloride 119 (H) 98 - 107 mmol/L [facility] CO2 21 (L) 22 - 31 mmol/L [facility] Anion Gap 12 5 - 15 mmol/L [facility] Calcium 9.9 8.5 - 10.5 mg/dL [facility] Estimated GFR 97 >=60 mL/min/1.73 m?? [facility] Comment: The eGFR was calculated using the CKD-EP I equation. As with all creatinine based estimates of kidney function, eGFR values calculated with the CKD-EPI equation are not accurate in patients wi th acute kidney failure, extremes of body mass or the acutely ill. http://[employer]/[facility]ULSAnkf eGFR 113 >=60 mL/min/1.73 m?? [facility] Comment: The eGFR was calculated using the CKD-EP I equation. As with all creatinine based estimates of kidney function, eGFR values calculated with the CKD-EPI equation are not accurate in patients wi th acute kidney failure, extremes of body mass or the acutely ill. http://[employer]/[facility]ULSAnkf Specimen Anatomical Collection Method Collection Time Receive d Time (Source) Location / / Volume Laterality Blood specimen 01/10/2019 10:08 9 (specimen) PM EDT 10:20 PM EDT Resulting Agency Comment Spec In Lab Andria Pena III, MD CHEMISTRY ORDERABLES Performing Organization Address City/State/[place] [address] (ABNORMAL) POCT Glucose (01/10/2019 10:07 PM EDT) athologist Signature POC Glucose 202 (H) 65 - 199 [place] mg/dL [facility] Comment: Supplemental ranges: <140 mg/dL before meals <180 mg/dL all other times of the day Specimen Anatomical Collection Method Collection Time Receive d Time (Source) Location / / Volume Laterality Blood specimen 01/10/2019 10:07 9 (specimen) PM EDT 10:07 PM EDT Andria Pena III, MD POINT OF CARE TEST ORDER ELINA Performing Organization Address City/State/[place] [address] POCT Glucose (01/10/2019 6:12 PM EDT) athologist Signature POC Glucose 153 65 - 199 [place] mg/dL [facility] Comment: Supplemental ranges: <140 mg/dL before meals <180 mg/dL all other times of the day Specimen Anatomical Collection Method Collection Time Receive d Time (Source) Location / / Volume Laterality Blood specimen 01/10/2019 6:12 PM 019 6:12 (specimen) EDT PM EDT Andria Pena III, MD POINT OF CARE TEST ORDER ELINA Performing Organization Address City/State/[place] [address] POCT Glucose (01/10/2019 4:48 PM EDT) athologist Signature POC Glucose 189 65 - 199 [place] mg/dL [facility] Comment: Supplemental ranges: <140 mg/dL before meals <180 mg/dL all other times of the day Specimen Anatomical Collection Method Collection Time Receive d Time (Source) Location / / Volume Laterality Blood specimen 01/10/2019 4:48 PM 019 4:48 (specimen) EDT PM EDT Andria Pena III, MD POINT OF CARE TEST ORDER ELINA Performing Organization Address City/State/ZIP [place] [address] (ABNORMAL) Basic Metabolic Panel (non-fasting) (01/10/2019 3:15 PM EDT) athologist Signature Glucose Lvl 309 (H) 65 - 199 [facility] mg/dL [facility] Comment: Diabetes: >=200 mg/dL plus symp toms BUN 30 (H) 8 - 18 mg/dL [facility] Creatinine 0.64 (L) 0.70 - 1.20 mg/dL [facility] Sodium 153 (H) 135 - 145 mmol/L [facility] Potassium 3.1 (L) 3.5 - 5.0 mmol/L [facility] Comment: Please note: ??Patients with WBC >100,00 0 may have falsely elevated Potassium levels. ??For accurate Potassium quantif ication in these patients send serum separator tube (gold top) for subsequent determinations. ??Contact the Clinical Chemistry Laboratory if there are any qu estions. Chloride 118 (H) 98 - 107 mmol/L [facility] CO2 22 22 - 31 mmol/L [facility] Anion Gap 13 5 - 15 mmol/L [facility] Calcium 10.2 8.5 - 10.5 mg/dL [facility] Estimated GFR 98 >=60 mL/min/1.73 m?? [facility] Comment: The eGFR was calculated using the CKD-EP I equation. As with all creatinine based estimates of kidney function, eGFR values calculated with the CKD-EPI equation are not accurate in patients wi th acute kidney failure, extremes of body mass or the acutely ill. http://[employer]/[facility]SAnkf eGFR 113 >=60 mL/min/1.73 m?? [facility] Comment: The eGFR was calculated using the CKD-EP I equation. As with all creatinine based estimates of kidney function, eGFR values calculated with the CKD-EPI equation are not accurate in patients wi th acute kidney failure, extremes of body mass or the acutely ill. http://[employer]/DHMCnkf Specimen Anatomical Collection Method Collection Time Receive d Time (Source) Location / / Volume Laterality Blood specimen 01/10/2019 3:15 PM 019 3:46 (specimen) EDT PM EDT Resulting Agency Comment Spec In Lab Andria Pena III, MD CHEMISTRY ORDERABLES Performing Organization Address [facility] Phon e Number [address] (ABNORMAL) POCT Glucose (01/10/2019 2:52 PM EDT) P athologist Signature POC Glucose 292 (H) 65 - 199 [facility] Comment: Supplemental ranges: <140 mg/dL before meals <180 mg/dL all other times of the day Specimen Anatomical Collection Method Collection Time Receive d Time (Source) Location / / Volume Laterality Blood specimen 01/10/2019 2:52 PM 019 2:52 (specimen) EDT PM EDT Andria Pena III, MD POINT OF CARE TEST ORDER ELINA Performing Organization Address [facility] [place] [address] (ABNORMAL) POCT Glucose (01/10/2019 12:25 PM EDT) P athologist Signature POC Glucose 212 (H) 65 - 199 [facility] mg/dL [facility] Comment: Supplemental ranges: <140 mg/dL before meals <180 mg/dL all other times of the day Specimen Anatomical Collection Method Collection Time Receive d Time (Source) Location / / Volume Laterality Blood specimen 01/10/2019 12:25 9 (specimen) PM EDT 12:25 PM EDT Andria Pena III, MD POINT OF CARE TEST ORDER ELINA Performing Organization Address City/State/[place] [address] POCT Glucose (01/10/2019 11:39 AM EDT) athologist Signature POC Glucose 192 65 - 199 [place] mg/dL [facility] Comment: Supplemental ranges: <140 mg/dL before meals <180 mg/dL all other times of the day Specimen Anatomical Collection Method Collection Time Receive d Time (Source) Location / / Volume Laterality Blood specimen 01/10/2019 11:39 9 (specimen) AM EDT 11:39 AM EDT Andria Pena III, MD POINT OF CARE TEST ORDER ELINA Performing Organization Address City/State/ZIP Code Phon e Number [address] POCT Glucose (01/10/2019 10:46 AM EDT) athologist Signature POC Glucose 154 65 - 199 [place] mg/dL [facility] Comment: Supplemental ranges: <140 mg/dL before meals <180 mg/dL all other times of the day Specimen Anatomical Collection Method Collection Time Receive d Time (Source) Location / / Volume Laterality Blood specimen 01/10/2019 10:46 9 (specimen) AM EDT 10:46 AM EDT Andria Pena III, MD POINT OF CARE TEST ORDER ELINA Performing Organization Address City/State/[place] [address] POCT Glucose (01/10/2019 10:10 AM EDT) athologist Signature POC Glucose 139 65 - 199 [place] mg/dL [facility] Comment: Supplemental ranges: <140 mg/dL before meals <180 mg/dL all other times of the day Specimen Anatomical Collection Method Collection Time Receive d Time (Source) Location / / Volume Laterality Blood specimen 01/10/2019 10:10 9 (specimen) AM EDT 10:10 AM EDT Andria Pena III, MD POINT OF CARE TEST ORDER ELINA Performing Organization Address City/State/ZIP [place] [address] Duplex for DVT, Arm, Unilat (01/10/2019 8:36 AM EDT) Component Value Ref Test Analysis Performed At Patholo gist Range Method Time Signature VB Text Department: Vascular Surgery Lab VASCUBASE Report Patient: [id number] (LBOSSOM PACHECO) CPT: 53099 ICD10: M79.89 Referring Physician: ANDRIA PENA III ?? Phone: Indications: Swelling ICD10 Diagnosis Code: M79.89 Findings: Right: The axillary, brachial, cephalic and basilic veins are patent and fully compressible with no evidence of thrombu s. The internal jugular vein is patent and fully compressible with no evidence of thrombus. While compression maneuvers cannot be performed on the subclavian or innomin ate veins, there is no pulsed Doppler or color Doppler evidence to suggest thrombus in the se veins. Interpretation: No evidence of RIGHT upper extremity deep or superficial venous thrombus. No evidence of internal jugular vein thrombus. Comparison: ?? No previous study in our vascular lab database for comparison. Electronically Signed by: MORALES PERAZA on 2019-01-20 09:39: 46 PM VB Text End of Report VASCUBASE Report Specimen (Source) Anatomical Collection Method Collection Time Re ceived Time Location / / Volume Laterality 01/10/2019 8:36 AM EDT Andria Pena III, MD VASCULAR ORDERABLES Performing Organization Address City/[facility]/ZIP Code Phon e Number V[facility] POCT Glucose (01/10/2019 8:18 AM EDT) P athologist Signature POC Glucose 169 65 - 199 [facility] Comment: Supplemental ranges: <140 mg/dL before meals <180 mg/dL all other times of the day Specimen Anatomical Collection Method Collection Time Receive d Time (Source) Location / / Volume Laterality Blood specimen 01/10/2019 8:18 AM 019 8:18 (specimen) EDT AM EDT Andria Pena III, MD POINT OF CARE TEST ORDER ELINA Performing Organization Address City/State/ZIP [place] [address] (ABNORMAL) Phosphorus (01/10/2019 8:10 AM EDT) P athologist Signature Phosphorus 1.0 2.5 - 4.5 [place] (Critical) mg/dL [facility] Comment: Result rechecked. Called by: reggie, Read back by: Mayela arechiga, Date/Time:01/10/19 09:27. Specimen Anatomical Collection Method Collection Time Receive d Time (Source) Location / / Volume Laterality Blood specimen 01/10/2019 8:10 AM 019 8:40 (specimen) EDT AM EDT Resulting Agency Comment Spec In Lab Andria Pena III, MD CHEMISTRY ORDERABLES Performing Organization Address City/[facility]/ZIP Code Phon e Number [address] POCT Glucose (01/10/2019 6:55 AM EDT) athologist [facility] POC Glucose 163 65 - 199 [place] mg/dL [facility] Comment: Supplemental ranges: <140 mg/dL before meals <180 mg/dL all other times of the day Specimen Anatomical Collection Method Collection Time Receive d Time (Source) Location / / Volume Laterality Blood specimen 01/10/2019 6:55 AM 019 6:55 (specimen) EDT AM EDT Andria Pena III, MD POINT OF CARE TEST ORDER ELINA Performing Organization Address City/State/[place] [address] (ABNORMAL) Hemogram (01/10/2019 5:50 AM EDT) Analysis Performed At Patho logist Time Signature WBC 13.0 (H) 4.0 - 9.5 [place] x10(3)/[facility] LABORATORY RBC 3.19 (L) 4.00 - [place] 5.21 [facility] x10(6)/[facility] LABORATORY Hemoglobin 9.5 (L) 11.7 - [place] 15.5 gm/dL [facility] Hematocrit 30.5 (L) 35.7 - [place] 45.8 % [facility] MCV 95.6 (H) 82.6 - [place] 94.4 [facility] LABORATORY MCH 29.8 27.1 - [place] 32.0 pg [facility] MCHC 31.1 (L) 31.7 - [place] 35.0 gm/dL [facility] Platelets 271 145 - 357 [place] x10(3)/[facility] LABORATORY RDWSD 48.4 (H) 37.0 - [place] 46.0 [facility] LABORATORY RDWCV 13.7 11.5 - [place] 14.1 % [facility] MPV 10.8 7.6 - 12.9 [place] [facility] LABORATORY nRBC % Auto 0.0 % [facility] nRBC Abs Auto 0.000 0.000 - [place] 0.000 [facility] x10(3)/[facility] LABORATORY Specimen Anatomical Collection Method Collection Time Receive d Time (Source) Location / / Volume Laterality Blood specimen 01/10/2019 5:50 AM 019 6:10 (specimen) EDT AM EDT Resulting Agency Comment Spec In Lab Andria Pena III, MD HEMATOLOGY ORDERABLES Performing Organization Address City/State/ZIP Code Phon e Number [address] Magnesium (01/10/2019 5:50 AM EDT) P athologist Signature Magnesium 0.81 0.69 - 1.07 [place] mmol/L [facility] Specimen Anatomical Collection Method Collection Time Receive d Time (Source) Location / / Volume Laterality Blood specimen 01/10/2019 5:50 AM 019 6:10 (specimen) EDT AM EDT Resulting Agency Comment Spec In Lab Andria Pena III, MD CHEMISTRY ORDERABLES Performing Organization Address City/[facility]/ZIP Code Phon e Number [address] (ABNORMAL) Basic Metabolic Panel (non-fasting) (01/10/2019 5:50 AM EDT) athologist Signature Glucose Lvl 183 65 - 199 [facility] mg/dL [facility] Comment: Diabetes: >=200 mg/dL plus symp toms BUN 29 (H) 8 - 18 mg/dL [facility] Creatinine 0.63 (L) 0.70 - 1.20 mg/dL [facility] Sodium 154 (H) 135 - 145 mmol/L [facility] Potassium 3.6 3.5 - 5.0 mmol/L [facility] Comment: Please note: ??Patients with WBC >100,00 0 may have falsely elevated Potassium levels. ??For accurate Potassium quantif ication in these patients send serum separator tube (gold top) for subsequent determinations. ??Contact the Clinical Chemistry Laboratory if there are any qu estions. Chloride 119 (H) 98 - 107 mmol/L [facility] CO2 22 22 - 31 mmol/L [facility] Anion Gap 13 5 - 15 mmol/L [facility] Calcium 10.1 8.5 - 10.5 mg/dL [facility] Estimated GFR 98 >=60 mL/min/1.73 m?? [facility] Comment: The eGFR was calculated using the CKD-EP I equation. As with all creatinine based estimates of kidney function, eGFR values calculated with the CKD-EPI equation are not accurate in patients wi th acute kidney failure, extremes of body mass or the acutely ill. http://[employer]/[facility]kf eGFR 114 >=60 mL/min/1.73 m?? [facility] Comment: The eGFR was calculated using the CKD-EP I equation. As with all creatinine based estimates of kidney function, eGFR values calculated with the CKD-EPI equation are not accurate in patients wi th acute kidney failure, extremes of body mass or the acutely ill. http://[employer]/[facility]kf Specimen Anatomical Collection Method Collection Time Receive d Time (Source) Location / / Volume Laterality Blood specimen 01/10/2019 5:50 AM 019 6:10 (specimen) EDT AM EDT Resulting Agency Comment Spec In Lab Andria Pena III, MD CHEMISTRY ORDERABLES Performing Organization Address City/[facility]/[place] [address] (ABNORMAL) Phosphorus (01/10/2019 5:50 AM EDT) athologist Signature Phosphorus 1.2 2.5 - 4.5 [place] (Critical) mg/dL [facility] Comment: Results rechecked-franklinf Called by: Xiao lakhani ad back by: dano ortiz_, Date/Time:01/10/19 07:07. Specimen Anatomical Collection Method Collection Time Receive d Time (Source) Location / / Volume Laterality Blood specimen 01/10/2019 5:50 AM 019 6:10 (specimen) EDT AM EDT Resulting Agency Comment Spec In Lab Andria Pena III, MD CHEMISTRY ORDERABLES Performing Organization Address City/[facility]/[place] [address] POCT Glucose (01/10/2019 5:30 AM EDT) athologist Signature POC Glucose 151 65 - 199 [place] mg/dL [facility] Comment: Supplemental ranges: <140 mg/dL before meals <180 mg/dL all other times of the day Specimen Anatomical Collection Method Collection Time Receive d Time (Source) Location / / Volume Laterality Blood specimen 01/10/2019 5:30 AM 019 5:30 (specimen) EDT AM EDT Andria Pena III, MD POINT OF CARE TEST ORDER ELINA Performing Organization Address City/[facility]/[place] [address] POCT Glucose (01/10/2019 3:55 AM EDT) athologist Signature POC Glucose 180 65 - 199 [place] mg/dL [facility] Comment: Supplemental ranges: <140 mg/dL before meals <180 mg/dL all other times of the day Specimen Anatomical Collection Method Collection Time Receive d Time (Source) Location / / Volume Laterality Blood specimen 01/10/2019 3:55 AM 019 3:55 (specimen) EDT AM EDT Andria Pena III, MD POINT OF CARE TEST ORDER ELINA Performing Organization Address City/[facility]/ZIP Code Phon e Number [address] POCT Glucose (01/10/2019 2:22 AM EDT) P athologist Signature POC Glucose 158 65 - 199 [facility] Comment: Supplemental ranges: <140 mg/dL before meals <180 mg/dL all other times of the day Specimen Anatomical Collection Method Collection Time Receive d Time (Source) Location / / Volume Laterality Blood specimen 01/10/2019 2:22 AM 019 2:22 (specimen) EDT AM EDT Andria Pena III, MD POINT OF CARE TEST ORDER ELINA Performing Organization Address [facility]/[place] [address] POCT Glucose (01/10/2019 12:50 AM EDT) P athologist Signature POC Glucose 174 65 - 199 [facility]/dL [facility] Comment: Supplemental ranges: <140 mg/dL before meals <180 mg/dL all other times of the day Specimen Anatomical Collection Method Collection Time Receive d Time (Source) Location / / Volume Laterality Blood specimen 01/10/2019 12:50 9 (specimen) AM EDT 12:50 AM EDT Andria Pena III, MD POINT OF CARE TEST ORDER ELINA Performing Organization Address City/[facility]/[place] [address] XR Abdomen 1 view (Generic) (01/10/2019 12:17 AM EDT) Anatomical Region Laterality Modality Abdomen N/A Digital Radiography Specimen (Source) Anatomical Location Collection Method / Collectio n Time Received Time / Laterality Volume Impressions 01/10/2019 1:25 AM EDT Slightly retracted enteric tube tip and side-port project over the stomach. Preliminary report signed by: Steven evans at 01/10/2019 12:46 AM I have personally reviewed the image(s) and the residents interpretation and agree with the findings, Felicia treviño 01/10/2019 1:25 AM Thank you for letting us participate in the care of this patient. For questions regarding this report, please contact e number below. ? Narrative 01/10/2019 1:25 AM EDT EXAMINATION: XR ABDOMEN 1 VIEW (GENERIC) CLINICAL HISTORY: 58 F w/ SBO s/p bowel resection, please confirm NGT placement TECHNIQUE: AP abdominal radiograph limited for the evaluation of enteric tube placement. COMPARISON: AP radiograph dated 01/09/2019. FINDINGS: Slightly retracted enteric tube tip and side-port project over the stomach. The visualized lower lung salas are davis ar. No dilated loops of bowel are visualized in the upper abdomen. Surgical clips overlie the right upper a bdomen. Procedure Note Felicia Mari MD - 01/10/2019Formatt ing of this note might be different from the original. EXAMINATION: XR ABDOMEN 1 VIEW (GENERIC) CLINICAL HISTORY: 58 F w/ SBO s/p bowel resection, please confirm NGT placement TECHNIQUE: AP abdominal radiograph limited for the evaluation of enteric tube placement. COMPARISON: AP radiograph dated 01/09/2019. FINDINGS: Slightly retracted enteric tube tip and side-port project over the stomach. The visualized lower lung salas are davis ar. No dilated loops of bowel are visualized in the upper abdomen. Surgical clips overlie the right upper a bdomen. IMPRESSION Slightly retracted enteric tube tip and side-port project over the stomach. Preliminary report signed by: Steven evans at 01/10/2019 12:46 AM I have personally reviewed the image(s) and the residents interpretation and agree with the findings, Felicia treviño 01/10/2019 1:25 AM Thank you for letting us participate in the care of this patient. For questions regarding this report, please contact e number below. Andria Pena III, MD IMG DX ORDERABLES POCT Glucose (01/09/2019 10:57 PM EDT) athologist Signature POC Glucose 172 65 - 199 [facility] Comment: Supplemental ranges: <140 mg/dL before meals <180 mg/dL all other times of the day Specimen Anatomical Collection Method Collection Time Receive d Time (Source) Location / / Volume Laterality Blood specimen 01/09/2019 10:57 9 (specimen) PM EDT 10:57 PM EDT Andria Pena III, MD POINT OF CARE TEST ORDER ELINA Performing Organization Address City/[facility]/ZIP Code Phon e Number [address] Potassium (01/09/2019 10:05 PM EDT) athologist [facility] Potassium 3.5 3.5 - 5.0 [facility] mmol/L [facility] Comment: Please note: ??Patients with WBC >100,00 0 may have falsely elevated Potassium levels. ??For accurate Potassium quantif ication in these patients send serum separator tube (gold top) for subsequent determinations. ??Contact the Clinical Chemistry Laboratory if there are any qu estions. Specimen Anatomical Collection Method Collection Time Receive d Time (Source) Location / / Volume Laterality Blood specimen 01/09/2019 10:05 9 (specimen) PM EDT 10:14 PM EDT Resulting Agency Comment Spec In Lab Andria Pena III, MD CHEMISTRY ORDERABLES Performing Organization Address City/[facility]/ZIP Code Phon e Number [address] POCT Glucose (01/09/2019 9:17 PM EDT) P athologist Signature POC Glucose 166 65 - 199 [place] mg/dL [facility] Comment: Supplemental ranges: <140 mg/dL before meals <180 mg/dL all other times of the day Specimen Anatomical Collection Method Collection Time Receive d Time (Source) Location / / Volume Laterality Blood specimen 01/09/2019 9:17 PM 019 9:17 (specimen) EDT PM EDT Andria Pena III, MD POINT OF CARE TEST ORDER ELINA Performing Organization Address City/State/ZIP Code Phon e Number [address] POCT Glucose (01/09/2019 7:50 PM EDT) athologist Signature POC Glucose 155 65 - 199 [facility] Comment: Supplemental ranges: <140 mg/dL before meals <180 mg/dL all other times of the day Specimen Anatomical Collection Method Collection Time Receive d Time (Source) Location / / Volume Laterality Blood specimen 01/09/2019 7:50 PM 019 7:50 (specimen) EDT PM EDT Andria Pena III, MD POINT OF CARE TEST ORDER ELINA Performing Organization Address City/State/ZIP Code Phon e Number [address] POCT Glucose (01/09/2019 6:25 PM EDT) athologist Signature POC Glucose 193 65 - 199 [facility] mg/dL [facility] Comment: Supplemental ranges: <140 mg/dL before meals <180 mg/dL all other times of the day Specimen Anatomical Collection Method Collection Time Receive d Time (Source) Location / / Volume Laterality Blood specimen 01/09/2019 6:25 PM 019 6:25 (specimen) EDT PM EDT Andria Pena III, MD POINT OF CARE TEST ORDER ELINA Performing Organization Address City/State/ZIP Code Phon e Number [address] Green Tube HOLD (01/09/2019 6:10 PM EDT) athologist Signature Green Hold Sample in [facility] lab. [facility] Specimen Anatomical Collection Method Collection Time Receive d Time (Source) Location / / Volume Laterality Blood specimen No Charge / 01/09/2019 6:10 PM 019 6:16 (specimen) Unknown EDT PM EDT Severino Larson MD CHEMISTRY ORDERABLES Performing Organization Address City/State/[place] [address] (ABNORMAL) POCT Glucose (01/09/2019 4:08 PM EDT) athologist Signature POC Glucose 219 (H) 65 - 199 [place] mg/dL [facility] Comment: Supplemental ranges: <140 mg/dL before meals <180 mg/dL all other times of the day Specimen Anatomical Collection Method Collection Time Receive d Time (Source) Location / / Volume Laterality Blood specimen 01/09/2019 4:08 PM 019 4:08 (specimen) EDT PM EDT Sarabjit Castelan MD POINT OF CARE TEST ORDERABLE S Performing Organization Address City/State/[place] [address] POCT Glucose (01/09/2019 2:32 PM EDT) athologist Signature POC Glucose 193 65 - 199 [place] mg/dL [facility] Comment: Supplemental ranges: <140 mg/dL before meals <180 mg/dL all other times of the day Specimen Anatomical Collection Method Collection Time Receive d Time (Source) Location / / Volume Laterality Blood specimen 01/09/2019 2:32 PM 019 2:32 (specimen) EDT PM EDT Sarabjit Castelan MD POINT OF CARE TEST ORDERABLE S Performing Organization Address City/State/[place] [address] POCT Glucose (01/09/2019 1:20 PM EDT) athologist Signature POC Glucose 185 65 - 199 [place] mg/dL [facility] Comment: Supplemental ranges: <140 mg/dL before meals <180 mg/dL all other times of the day Specimen Anatomical Collection Method Collection Time Receive d Time (Source) Location / / Volume Laterality Blood specimen 01/09/2019 1:20 PM 019 1:20 (specimen) EDT PM EDT Sarabjit Castelan MD POINT OF CARE TEST ORDERABLE S Performing Organization Address City/State/ZIP Code Phon e Number [address] POCT Glucose (01/09/2019 12:05 PM EDT) athologist Signature POC Glucose 176 65 - 199 [place] mg/dL [facility] Comment: Supplemental ranges: <140 mg/dL before meals <180 mg/dL all other times of the day Specimen Anatomical Collection Method Collection Time Receive d Time (Source) Location / / Volume Laterality Blood specimen 01/09/2019 12:05 9 (specimen) PM EDT 12:05 PM EDT Sarabjit Castelan MD POINT OF CARE TEST ORDERDANTE S Performing Organization Address City/State/ZIP Code Phon e Number [address] POCT Glucose (01/09/2019 10:21 AM EDT) athologist Signature POC Glucose 189 65 - 199 [place] mg/dL [facility] Comment: Supplemental ranges: <140 mg/dL before meals <180 mg/dL all other times of the day Specimen Anatomical Collection Method Collection Time Receive d Time (Source) Location / / Volume Laterality Blood specimen 01/09/2019 10:21 9 (specimen) AM EDT 10:21 AM EDT Sarabjit Castelan MD POINT OF CARE TEST ORDERABLE S Performing Organization Address City/State/[place] [address] POCT Glucose (01/09/2019 9:20 AM EDT) athologist Signature POC Glucose 190 65 - 199 [place] mg/dL [facility] Comment: Supplemental ranges: <140 mg/dL before meals <180 mg/dL all other times of the day Specimen Anatomical Collection Method Collection Time Receive d Time (Source) Location / / Volume Laterality Blood specimen 01/09/2019 9:20 AM 019 9:20 (specimen) EDT AM EDT Sarabjit Castelan MD POINT OF CARE TEST ORDERABLE S Performing Organization Address City/State/[place] [address] (ABNORMAL) POCT Glucose (01/09/2019 8:01 AM EDT) P athologist Signature POC Glucose 202 (H) 65 - 199 [place] mg/dL [facility] Comment: Supplemental ranges: <140 mg/dL before meals <180 mg/dL all other times of the day Specimen Anatomical Collection Method Collection Time Receive d Time (Source) Location / / Volume Laterality Blood specimen 01/09/2019 8:01 AM 019 8:01 (specimen) EDT AM EDT Sarabjit Castelan MD POINT OF CARE TEST ORDERABLE S Performing Organization Address City/State/[place] [address] (ABNORMAL) POCT Glucose (01/09/2019 6:51 AM EDT) P athologist Signature POC Glucose 228 (H) 65 - 199 [facility] mg/dL [facility] Comment: Supplemental ranges: <140 mg/dL before meals <180 mg/dL all other times of the day Specimen Anatomical Collection Method Collection Time Receive d Time (Source) Location / / Volume Laterality Blood specimen 01/09/2019 6:51 AM 019 6:51 (specimen) EDT AM EDT Sarabjit Castelan MD POINT OF CARE TEST ORDERABLE S Performing Organization Address City/State/[place] [address] (ABNORMAL) POCT Glucose (01/09/2019 5:35 AM EDT) P athologist Signature POC Glucose 231 (H) 65 - 199 [facility] mg/dL [facility] Comment: Supplemental ranges: <140 mg/dL before meals <180 mg/dL all other times of the day Specimen Anatomical Collection Method Collection Time Receive d Time (Source) Location / / Volume Laterality Blood specimen 01/09/2019 5:35 AM 019 5:35 (specimen) EDT AM EDT Sarabjit Castelan MD POINT OF CARE TEST ORDERABLE S Performing Organization Address City/State/[place] [address] (ABNORMAL) POCT Glucose (01/09/2019 4:12 AM EDT) athologist Signature POC Glucose 233 (H) 65 - 199 [facility] mg/dL [facility] Comment: Supplemental ranges: <140 mg/dL before meals <180 mg/dL all other times of the day Specimen Anatomical Collection Method Collection Time Receive d Time (Source) Location / / Volume Laterality Blood specimen 01/09/2019 4:12 AM 019 4:12 (specimen) EDT AM EDT Sarabjit Castelan MD POINT OF CARE TEST ORDERABLE S Performing Organization Address City/State/[place] [address] XR Abdomen 1 view (Generic) (01/09/2019 3:06 AM EDT) Anatomical Region Laterality Modality Abdomen N/A Digital Radiography Specimen (Source) Anatomical Location Collection Method / Collectio n Time Received Time / Laterality Volume Impressions 01/09/2019 3:24 AM EDT Interval retraction of an enteric tube with tip and side-port project over the stomach now directed toward the gastric antrum. Preliminary report signed by: Steven evans at 01/09/2019 3:19 AM I have personally reviewed the image(s) and the residents interpretation and agree with the findings, Felicia treviño 01/09/2019 3:24 AM Thank you for letting us participate in the care of this patient. For questions regarding this report, please contact e number below. ? Electronically signed by: EDUARDO May Count Includes [facility] ([phone]), at 01/09/2019 3:24 AM Narrative 01/09/2019 3:24 AM EDT EXAMINATION: XR ABDOMEN 1 VIEW (GENERIC) CLINICAL HISTORY: NG placement TECHNIQUE: Limited radiograph of the upper abdomen and lower chest for confirmation of enteric tube placement. COMPARISON: Abdominal radiograph dated 01/08/2019. FINDINGS: Interval retraction of an enteric tube w ith tip and side-port project over the stomach now directed toward the gastric antrum. There is a paucity of gas in the visuali zed upper abdomen. No dilated loops of bowel. Surgical clips are present within the right upper quadrant, likely from prior cholecystectomy. Procedure Note Felicia Mari MD - 01/09/2019Formatt ing of this note might be different from the original. EXAMINATION: XR ABDOMEN 1 VIEW (GENERIC) CLINICAL HISTORY: NG placement TECHNIQUE: Limited radiograph of the upper abdomen and lower chest for confirmation of enteric tube placement. COMPARISON: Abdominal radiograph dated 01/08/2019. FINDINGS: Interval retraction of an enteric tube w ith tip and side-port project over the stomach now directed toward the gastric antrum. There is a paucity of gas in the visuali zed upper abdomen. No dilated loops of bowel. Surgical clips are present within the right upper quadrant, likely from prior cholecystectomy. IMPRESSION Interval retraction of an enteric tube w ith tip and side-port project over the stomach now directed toward the gastric antrum. Preliminary report signed by: Steven evans at 01/09/2019 3:19 AM I have personally reviewed the image(s) and the residents interpretation and agree with the findings, Felicia treviño 01/09/2019 3:24 AM Thank you for letting us participate in the care of this patient. For questions regarding this report, please contact e number below. Electronically signed by: EDUARDO May Count Includes [facility] ([phone]), at 01/09/2019 3:24 AM Sarabjit Castelan MD IMG DX ORDERABLES (ABNORMAL) POCT Glucose (01/09/2019 2:58 AM EDT) athologist Signature POC Glucose 226 (H) 65 - 199 [facility] mg/dL [facility] Comment: Supplemental ranges: <140 mg/dL before meals <180 mg/dL all other times of the day Specimen Anatomical Collection Method Collection Time Receive d Time (Source) Location / / Volume Laterality Blood specimen 01/09/2019 2:58 AM 019 2:58 (specimen) EDT AM EDT Sarabjit Castelan MD POINT OF CARE TEST ORDERABLE S Performing Organization Address City/State/[place] [address] (ABNORMAL) Phosphorus (01/09/2019 2:07 AM EDT) athologist Signature Phosphorus 2.0 (L) 2.5 - 4.5 [facility] Specimen Anatomical Collection Method Collection Time Receive d Time (Source) Location / / Volume Laterality Blood specimen Venous Draw / 01/09/2019 2:07 AM 2018 3:21 (specimen) Unknown EDT AM EDT Resulting Agency Comment Spec In Lab Roes Schreiber MD CHEMISTRY ORDERABLES Performing Organization Address City/[facility]/[place] [address] Magnesium (01/09/2019 2:07 AM EDT) athologist Signature Magnesium 0.81 0.69 - 1.07 [facility] mmol/L [facility] Specimen Anatomical Collection Method Collection Time Receive d Time (Source) Location / / Volume Laterality Blood specimen 01/09/2019 2:07 AM 019 2:17 (specimen) EDT AM EDT Resulting Agency Comment Spec In Lab Andria Pena III, MD CHEMISTRY ORDERABLES Performing Organization Address City/[facility]/[place] [address] (ABNORMAL) Basic Metabolic Panel (non-fasting) (01/09/2019 2:07 AM EDT) athologist Signature Glucose Lvl 241 (H) 65 - 199 [facility] mg/dL [facility] Comment: Diabetes: >=200 mg/dL plus symp toms BUN 27 (H) 8 - 18 mg/dL [facility] Creatinine 0.68 (L) 0.70 - 1.20 mg/dL [facility] Sodium 143 135 - 145 mmol/L [facility] Potassium 2.9 (Critical) 3.5 - 5.0 mmol/L [facility] Comment: Called by: gladis, Read back by: Elliot kelly, Date/Time:01/09/19 02:49. Please note: ??Patients with WBC >100,00 0 may have falsely elevated Potassium levels. ??For accurate Potassium quantif ication in these patients send serum separator tube (gold top) for subsequent determinations. ??Contact the Clinical Chemistry Laboratory if there are any qu estions. Chloride 114 (H) 98 - 107 mmol/L [facility] CO2 20 (L) 22 - 31 mmol/L [facility] Anion Gap 9 5 - 15 mmol/L [facility] Calcium 9.9 8.5 - 10.5 mg/dL [facility] Estimated GFR 96 >=60 mL/min/1.73 m?? [facility] Comment: The eGFR was calculated using the CKD-EP I equation. As with all creatinine based estimates of kidney function, eGFR values calculated with the CKD-EPI equation are not accurate in patients wi th acute kidney failure, extremes of body mass or the acutely ill. http://[employer]/[facility] TULSAnkf eGFR 111 >=60 mL/min/1.73 m?? [facility] Comment: The eGFR was calculated using the CKD-EP I equation. As with all creatinine based estimates of kidney function, eGFR values calculated with the CKD-EPI equation are not accurate in patients wi th acute kidney failure, extremes of body mass or the acutely ill. http://[employer]/[facility] TULSAnkf Specimen Anatomical Collection Method Collection Time Receive d Time (Source) Location / / Volume Laterality Blood specimen 01/09/2019 2:07 AM 019 2:17 (specimen) EDT AM EDT Resulting Agency Comment Spec In Lab Andria Pena III, MD CHEMISTRY ORDERABLES Performing Organization Address City/[facility]/ZIP [place] [address] (ABNORMAL) Hemogram (01/09/2019 2:07 AM EDT) Analysis Performed At Patho logist Time Signature WBC 18.7 (H) 4.0 - 9.5 [facility] x10(3)/[facility] LABORATORY RBC 3.53 (L) 4.00 - [place] 5.21 [facility] x10(6)/[facility] LABORATORY Hemoglobin 10.7 (L) 11.7 - [facility] 15.5 gm/dL [facility] Hematocrit 33.5 (L) 35.7 - [facility] 45.8 % [facility] MCV 94.9 (H) 82.6 - [facility] 94.4 [facility] LABORATORY MCH 30.3 27.1 - [place] 32.0 pg [facility] MCHC 31.9 31.7 - [facility] 35.0 gm/dL [facility] Platelets 260 145 - 357 [facility] x10(3)/[facility] LABORATORY RDWSD 47.8 (H) 37.0 - [facility] 46.0 [facility] LABORATORY RDWCV 13.7 11.5 - [facility] 14.1 % [facility] MPV 10.4 7.6 - 12.9 [facility] nRBC % Auto 0.0 % [facility] nRBC Abs Auto 0.000 0.000 - [facility] 0.000 [facility] x10(3)/[facility] LABORATORY Specimen Anatomical Collection Method Collection Time Receive d Time (Source) Location / / Volume Laterality Blood specimen 01/09/2019 2:07 AM 019 2:17 (specimen) EDT AM EDT Resulting Agency Comment Spec In Lab Andria Pena III, MD HEMATOLOGY ORDERABLES Performing Organization Address City/[facility]/ZIP [place] [address] (ABNORMAL) POCT Glucose (01/09/2019 2:06 AM EDT) athologist Signature POC Glucose 223 (H) 65 - 199 [facility] mg/dL [facility] Comment: Supplemental ranges: <140 mg/dL before meals <180 mg/dL all other times of the day Specimen Anatomical Collection Method Collection Time Receive d Time (Source) Location / / Volume Laterality Blood specimen 01/09/2019 2:06 AM 019 2:06 (specimen) EDT AM EDT Sarabjit Castelan MD POINT OF CARE TEST ORDERABLE S Performing Organization Address City/State/ZIP Code Phon e Number [address] (ABNORMAL) POCT Glucose (01/09/2019 12:22 AM EDT) athologist Signature POC Glucose 200 (H) 65 - 199 [facility] mg/dL [facility] Comment: Supplemental ranges: <140 mg/dL before meals <180 mg/dL all other times of the day Specimen Anatomical Collection Method Collection Time Receive d Time (Source) Location / / Volume Laterality Blood specimen 01/09/2019 12:22 9 (specimen) AM EDT 12:22 AM EDT Sarabjit Castelan MD POINT OF CARE TEST ORDERABLE S Performing Organization Address City/State/[place] [address] POCT Glucose (01/08/2019 10:43 PM EDT) athologist Signature POC Glucose 173 65 - 199 [facility] mg/dL [facility] Comment: Supplemental ranges: <140 mg/dL before meals <180 mg/dL all other times of the day Specimen Anatomical Collection Method Collection Time Receive d Time (Source) Location / / Volume Laterality Blood specimen 01/08/2019 10:43 9 (specimen) PM EDT 10:43 PM EDT Sarabjit Castelan MD POINT OF CARE TEST ORDERABLE S Performing Organization Address City/State/ZIP [place] [address] POCT Glucose (01/08/2019 9:25 PM EDT) athologist Signature POC Glucose 129 65 - 199 [place] mg/dL [facility] Comment: Supplemental ranges: <140 mg/dL before meals <180 mg/dL all other times of the day Specimen Anatomical Collection Method Collection Time Receive d Time (Source) Location / / Volume Laterality Blood specimen 01/08/2019 9:25 PM 019 9:25 (specimen) EDT PM EDT Sarabjit Castelan MD POINT OF CARE TEST ORDERABLE S Performing Organization Address City/State/ZIP Code Phon e Number [address] POCT Glucose (01/08/2019 7:57 PM EDT) athologist Signature POC Glucose 116 65 - 199 [facility] mg/dL [facility] Comment: Supplemental ranges: <140 mg/dL before meals <180 mg/dL all other times of the day Specimen Anatomical Collection Method Collection Time Receive d Time (Source) Location / / Volume Laterality Blood specimen 01/08/2019 7:57 PM 019 7:57 (specimen) EDT PM EDT Sarabjit Castelan MD POINT OF CARE TEST ORDERABLE S Performing Organization Address City/State/[place] [address] POCT Glucose (01/08/2019 6:55 PM EDT) athologist Signature POC Glucose 96 65 - 199 [place] mg/dL [facility] Comment: Supplemental ranges: <140 mg/dL before meals <180 mg/dL all other times of the day Specimen Anatomical Collection Method Collection Time Receive d Time (Source) Location / / Volume Laterality Blood specimen 01/08/2019 6:55 PM 019 6:55 (specimen) EDT PM EDT Sarabjit Castelan MD POINT OF CARE TEST ORDERABLE S Performing Organization Address City/State/[place] [address] POCT Glucose (01/08/2019 6:26 PM EDT) athologist Signature POC Glucose 104 65 - 199 [place] mg/dL [facility] Comment: Supplemental ranges: <140 mg/dL before meals <180 mg/dL all other times of the day Specimen Anatomical Collection Method Collection Time Receive d Time (Source) Location / / Volume Laterality Blood specimen 01/08/2019 6:26 PM 019 6:26 (specimen) EDT PM EDT Sarabjit Castelan MD POINT OF CARE TEST ORDERABLE S Performing Organization Address City/State/ZIP Code Phon e Number [address] POCT Glucose (01/08/2019 5:42 PM EDT) athologist Signature POC Glucose 112 65 - 199 [place] mg/dL [facility] Comment: Supplemental ranges: <140 mg/dL before meals <180 mg/dL all other times of the day Specimen Anatomical Collection Method Collection Time Receive d Time (Source) Location / / Volume Laterality Blood specimen 01/08/2019 5:42 PM 019 5:42 (specimen) EDT PM EDT Sarabjit Castelan MD POINT OF CARE TEST ORDERABLE S Performing Organization Address City/State/ZIP Code Phon e Number [address] POCT Glucose (01/08/2019 5:02 PM EDT) athologist Signature POC Glucose 128 65 - 199 [facility] mg/dL [facility] Comment: Supplemental ranges: <140 mg/dL before meals <180 mg/dL all other times of the day Specimen Anatomical Collection Method Collection Time Receive d Time (Source) Location / / Volume Laterality Blood specimen 01/08/2019 5:02 PM 019 5:02 (specimen) EDT PM EDT Sarabjit Castelan MD POINT OF CARE TEST ORDERABLE S Performing Organization Address City/State/[place] [address] Magnesium (01/08/2019 4:30 PM EDT) athologist Signature Magnesium 0.77 0.69 - 1.07 [place] mmol/L [facility] Specimen Anatomical Collection Method Collection Time Receive d Time (Source) Location / / Volume Laterality Blood specimen Venous Draw / 01/08/2019 4:30 PM 2018 6:36 (specimen) Unknown EDT PM EDT Resulting Agency Comment Spec In Lab Rose Schreiber MD CHEMISTRY ORDERABLES Performing Organization Address City/[facility]/ZIP Code Phon e Number [address] Phosphorus (01/08/2019 4:30 PM EDT) athologist Signature Phosphorus 2.5 2.5 - 4.5 [facility] Specimen Anatomical Collection Method Collection Time Receive d Time (Source) Location / / Volume Laterality Blood specimen 01/08/2019 4:30 PM 019 4:45 (specimen) EDT PM EDT Resulting Agency Comment Spec In Lab Ace Henry MD CHEMISTRY ORDERABLES Performing Organization Address City/[facility]/ZIP Code Phon e Number [address] Aspergillus Antigen (01/08/2019 4:30 PM EDT) athologist Signature Aspergillus Ag <0.500 <0.5 Index [facility] Comment: ADDITIONAL INFORMATIO N This is a qualitative test and the resul tacos index value is not indicative of disease severity. ??Se rial testing is recommended for patients at high risk fo r invasive aspergillosis. This assay was performed using the FDA-c leared [employer]Cert Platelia Aspergillus Galactomannan EIA. Test Performed by: [facility] [address] [place], [place] [address] Specimen Anatomical Collection Method Collection Time Receive d Time (Source) Location / / Volume Laterality Blood specimen 01/08/2019 4:30 PM 06/20/2 019 8:49 (specimen) EDT AM EDT Resulting Agency Comment Spec In Lab Ace Henry MD CHEMISTRY ORDERABLES Performing Organization Address City/State/[place] [address] Blood culture (01/08/2019 4:30 PM EDT) Patholo gist Method Time Signature Blood Culture No growth [place] at 5 days. [facility] Specimen Anatomical Collection Method Collection Time Receive d Time (Source) Location / / Volume Laterality Blood specimen 01/08/2019 4:30 PM 019 5:10 (specimen) EDT PM EDT Comment: FIRST DRAW: LH Resulting Agency Comment Spec In Lab Ace Henry MD MICROBIOLOGY - BLOOD ORDERAB LES Performing Organization Address City/[facility]/[place] [address] POCT Glucose (01/08/2019 4:11 PM EDT) P athologist Signature POC Glucose 155 65 - 199 [facility] mg/dL [facility] Comment: Supplemental ranges: <140 mg/dL before meals <180 mg/dL all other times of the day Specimen Anatomical Collection Method Collection Time Receive d Time (Source) Location / / Volume Laterality Blood specimen 01/08/2019 4:11 PM 019 4:11 (specimen) EDT PM EDT Sarabjit Castelan MD POINT OF CARE TEST ORDERABLE S Performing Organization Address City/[facility]/[place] [address] POCT Glucose (01/08/2019 3:05 PM EDT) P athologist Signature POC Glucose 194 65 - 199 [facility] mg/dL [facility] Comment: Supplemental ranges: <140 mg/dL before meals <180 mg/dL all other times of the day Specimen Anatomical Collection Method Collection Time Receive d Time (Source) Location / / Volume Laterality Blood specimen 01/08/2019 3:05 PM 019 3:05 (specimen) EDT PM EDT Sarabjit Castelan MD POINT OF CARE TEST ORDERABLE S Performing Organization Address City/State/ZIP Code Ph[place] [address] XR Abdomen 1 view (Generic) (01/08/2019 2:21 PM EDT) Anatomical Region Laterality Modality Abdomen N/A Digital Radiography Specimen (Source) Anatomical Location Collection Method / Collectio n Time Received Time / Laterality Volume Impressions 01/08/2019 2:32 PM EDT The NG tube is well into the stomach with a large redundant loop. Thank you for letting us participate in the care of this patient. For questions regarding this report, please contact e number below. ? Narrative 01/08/2019 2:32 PM EDT EXAMINATION: XR ABDOMEN 1 VIEW (GENERIC) CLINICAL HISTORY: 58 F with recent open abdominal surgery, morbid obesity now s/p NG tube placement and removal of her previous OG tube. Please confirm placement of the NG tube in the stomach. Not intended to be postpyloric. Thanks! TECHNIQUE: AP, portable, supine view of the left up per abdomen. COMPARISON: 01/05/2019. FINDINGS: An NG tube enters the stomach and runs t o the level of the gastric body where it turns back and runs craniad with the tip towards the gastric fundus. The catheter could be pulled back. There is a moderate amount of gas in the visualized portion of the colon. Patchy airless lung is seen in the left lower lobe. Procedure Note Sumanth Pitts MD - 01/08/2019Format ting of this note might be different from the original. EXAMINATION: XR ABDOMEN 1 VIEW (GENERIC) CLINICAL HISTORY: 58 F with recent open abdominal surgery, morbid obesity now s/p NG tube placement and removal of her previous OG tube. Please confirm placement of the NG tube in the stomach. Not intended to be postpyloric. Thanks! TECHNIQUE: AP, portable, supine view of the left up per abdomen. COMPARISON: 01/05/2019. FINDINGS: An NG tube enters the stomach and runs t o the level of the gastric body where it turns back and runs craniad with the tip towards the gastric fundus. The catheter could be pulled back. There is a moderate amount of gas in the visualized portion of the colon. Patchy airless lung is seen in the left lower lobe. IMPRESSION The NG tube is well into the stomach wit h a large redundant loop. Thank you for letting us participate in the care of this patient. For questions regarding this report, please contact e number below. Electronically signed by: Sumanth Pitts [facility] ([phone]), at 01/08/2019 2:32 PM Ace Henry MD IMG DX ORDERABLES (ABNORMAL) POCT Glucose (01/08/2019 2:09 PM EDT) athologist Signature POC Glucose 214 (H) 65 - 199 [facility] mg/dL [facility] Comment: Supplemental ranges: <140 mg/dL before meals <180 mg/dL all other times of the day Specimen Anatomical Collection Method Collection Time Receive d Time (Source) Location / / Volume Laterality Blood specimen 01/08/2019 2:09 PM 019 2:09 (specimen) EDT PM EDT Sarabjit Castelan MD POINT OF CARE TEST ORDERABLE S Performing Organization Address City/State/ZIP [place] [address] (ABNORMAL) POCT Glucose (01/08/2019 12:34 PM EDT) athologist Signature POC Glucose 228 (H) 65 - 199 [facility] mg/dL [facility] Comment: Supplemental ranges: <140 mg/dL before meals <180 mg/dL all other times of the day Specimen Anatomical Collection Method Collection Time Receive d Time (Source) Location / / Volume Laterality Blood specimen 01/08/2019 12:34 9 (specimen) PM EDT 12:34 PM EDT Sarabjit Castelan MD POINT OF CARE TEST ORDERABLE S Performing Organization Address City/[facility]/[place] [address] (ABNORMAL) POCT Glucose (01/08/2019 10:39 AM EDT) P athologist Signature POC Glucose 215 (H) 65 - 199 [facility] Comment: Supplemental ranges: <140 mg/dL before meals <180 mg/dL all other times of the day Specimen Anatomical Collection Method Collection Time Receive d Time (Source) Location / / Volume Laterality Blood specimen 01/08/2019 10:39 9 (specimen) AM EDT 10:39 AM EDT Ace Henry MD POINT OF CARE TEST ORDERABLE S Performing Organization Address [facility]/[place] [address] (ABNORMAL) POCT Glucose (01/08/2019 8:54 AM EDT) P athologist Signature POC Glucose 222 (H) 65 - 199 [facility]dL [facility] Comment: Supplemental ranges: <140 mg/dL before meals <180 mg/dL all other times of the day Specimen Anatomical Collection Method Collection Time Receive d Time (Source) Location / / Volume Laterality Blood specimen 01/08/2019 8:54 AM 019 8:54 (specimen) EDT AM EDT Ace Henry MD POINT OF CARE TEST ORDERABLE S Performing Organization Address City/[facility]/[place] [address] EKG 12 Lead (01/08/2019 8:03 AM EDT) Component Value Ref Range Test Analysis Performed Pathologis t Method Time At Signature Ventricular rate 72 BPM MUSE SYSTEM Atrial Rate 72 BPM MUSE SYSTEM P-R Interval 214 ms MUSE SYSTEM QRS Duration 112 ms MUSE SYSTEM Q-T Interval 398 ms MUSE SYSTEM QTC Calculated 435 ms MUSE SYSTEM (Bezet) Calculated P [place] 61 degrees MUSE SYSTEM Calculated R [place] 80 degrees MUSE SYSTEM Calculated T [place] 79 degrees MUSE SYSTEM INTERPRETATION Sinus rhythm with 1st degree A-V block MUSE SYSTEM Otherwise normal ECG When compared with ECG of 04-JAN-2019 21:29, Left bundle branch block is no longer Present I personally reviewed the tracing and edited the fellows int erpretation Confirmed by fellow MD Trey, Kentrell ([id number]) on 01/08/2019 12:28:10 PM Confirmed by MD Karri, Corby ([id number]) on 01/08/2019 1:59:28 PM Specimen Anatomical Collection Method Collection Time Receive d Time (Source) Location / / Volume Laterality 01/08/2019 8:03 AM 9 1:59 EDT PM EDT Hossein Chahal MD ECG ORDERABLES Performing Organization Address City/State/ZIP Code Phon e Number MUSE SYSTEM (ABNORMAL) POCT Glucose (01/08/2019 7:59 AM EDT) athologist Signature POC Glucose 240 (H) 65 - 199 [facility] Comment: Supplemental ranges: <140 mg/dL before meals <180 mg/dL all other times of the day Specimen Anatomical Collection Method Collection Time Receive d Time (Source) Location / / Volume Laterality Blood specimen 01/08/2019 7:59 AM 019 7:59 (specimen) EDT AM EDT Ace Henry MD POINT OF CARE TEST ORDERABLE S Performing Organization Address City/[facility]/[place] [address] (ABNORMAL) POCT Glucose (01/08/2019 7:18 AM EDT) athologist Signature POC Glucose 227 (H) 65 - 199 [facility]dL [facility] Comment: Supplemental ranges: <140 mg/dL before meals <180 mg/dL all other times of the day Specimen Anatomical Collection Method Collection Time Receive d Time (Source) Location / / Volume Laterality Blood specimen 01/08/2019 7:18 AM 019 7:18 (specimen) EDT AM EDT Ace Henry MD POINT OF CARE TEST ORDERABLE S Performing Organization Address City/[facility]/[place] [address] (ABNORMAL) POCT Glucose (01/08/2019 5:49 AM EDT) athologist Signature POC Glucose 237 (H) 65 - 199 [facility]dL [facility] Comment: Supplemental ranges: <140 mg/dL before meals <180 mg/dL all other times of the day Specimen Anatomical Collection Method Collection Time Receive d Time (Source) Location / / Volume Laterality Blood specimen 01/08/2019 5:49 AM 019 5:49 (specimen) EDT AM EDT Ace Henry MD POINT OF CARE TEST ORDERABLE S Performing Organization Address City/State/[place] [address] (ABNORMAL) POCT Glucose (01/08/2019 4:03 AM EDT) athologist Signature POC Glucose 231 (H) 65 - 199 [facility]dL [facility] Comment: Supplemental ranges: <140 mg/dL before meals <180 mg/dL all other times of the day Specimen Anatomical Collection Method Collection Time Receive d Time (Source) Location / / Volume Laterality Blood specimen 01/08/2019 4:03 AM 019 4:03 (specimen) EDT AM EDT Ace Henry MD POINT OF CARE TEST ORDERABLE S Performing Organization Address City/State/[place] [address] (ABNORMAL) POCT Glucose (01/08/2019 3:09 AM EDT) athologist Signature POC Glucose 219 (H) 65 - 199 [facility]dL [facility] Comment: Supplemental ranges: <140 mg/dL before meals <180 mg/dL all other times of the day Specimen Anatomical Collection Method Collection Time Receive d Time (Source) Location / / Volume Laterality Blood specimen 01/08/2019 3:09 AM 019 3:09 (specimen) EDT AM EDT Ace Henry MD POINT OF CARE TEST ORDERABLE S Performing Organization Address City/State/[place] [address] POCT Glucose (01/08/2019 2:00 AM EDT) athologist Signature POC Glucose 190 65 - 199 [place] mg/dL [facility] Comment: Supplemental ranges: <140 mg/dL before meals <180 mg/dL all other times of the day Specimen Anatomical Collection Method Collection Time Receive d Time (Source) Location / / Volume Laterality Blood specimen 01/08/2019 2:00 AM 019 2:00 (specimen) EDT AM EDT Ace Henry MD POINT OF CARE TEST ORDERABLE S Performing Organization Address City/State/ZIP Code Phon e Number [address] Amylase (01/08/2019 1:45 AM EDT) athologist Signature Amylase 86 28 - 100 [facility] unit/[facility] Specimen Anatomical Collection Method Collection Time Receive d Time (Source) Location / / Volume Laterality Blood specimen Venous Draw / 01/08/2019 1:45 AM 2018 8:38 (specimen) Unknown EDT AM EDT Resulting Agency Comment Spec In Lab Rose Schreiber MD CHEMISTRY ORDERABLES Performing Organization Address City/State/ZIP Code Phon e Number [address] (ABNORMAL) Lipase (01/08/2019 1:45 AM EDT) athologist Signature Lipase 79 (H) 0 - 60 [facility] LABORATORY Specimen Anatomical Collection Method Collection Time Receive d Time (Source) Location / / Volume Laterality Blood specimen Venous Draw / 01/08/2019 1:45 AM 2018 8:38 (specimen) Unknown EDT AM EDT Resulting Agency Comment Spec In Lab Rose Schreiber MD CHEMISTRY ORDERABLES Performing Organization Address City/[facility]/ZIP Code Phon e Number [address] Phosphorus (01/08/2019 1:45 AM EDT) athologist Signature Phosphorus 3.4 2.5 - 4.5 [place] mg/dL [facility] Specimen Anatomical Collection Method Collection Time Receive d Time (Source) Location / / Volume Laterality Blood specimen 01/08/2019 1:45 AM 019 3:28 (specimen) EDT AM EDT Resulting Agency Comment Spec In Lab Ace Henry MD CHEMISTRY ORDERABLES Performing Organization Address City/State/ZIP [place] [address] (ABNORMAL) Differential, Automated (01/08/2019 1:45 AM EDT) [facility] Method Time Signature Neutrophils % 73.8 % [facility] Neutr Abs (ANC) 8.88 (H) 1.70 - [facility] 6.10 [facility] x10(3)/[facility] LABORATORY Lymphocytes % 15.9 % [facility] Lymphocytes Abs 1.9 0.9 - 3.2 [facility] x10(3)/[facility] LABORATORY Monocytes % 8.7 % [facility] Monocyte Abs 1.0 (H) 0.3 - 0.9 [facility] x10(3)/[facility] LABORATORY Eosinophils % 1.2 % [facility] Eosinophils Abs 0.1 0.0 - 0.4 [facility] x10(3)/[facility] LABORATORY Basophils % 0.2 % [facility] Basophils Abs 0.0 0.0 - 0.1 [facility] x10(3)/[facility] LABORATORY Immature Gran % 0.20 % [facility] Comment: Immature granulocytes(IG's)percentage an d absolute count will include metamyelocytes, myelocytes, and promyelo cytes. Blood smears from CBCs yielding IG's will be scanned manually for concor dance. If this scan disagrees with the automated IG or if promyelocytes are not ed, a manual differential will be performed. Irina Gran Abs 0.03 0.00 - 0.04 x10(3)/[facility]ORY Specimen Anatomical Collection Method Collection Time Receive d Time (Source) Location / / Volume Laterality Blood specimen 01/08/2019 1:45 AM 019 1:56 (specimen) EDT AM EDT Resulting Agency Comment Spec In Lab Severino Larson MD HEMATOLOGY ORDERABLES Performing Organization Address City/State/[place] [address] (ABNORMAL) Hemogram (01/08/2019 1:45 AM EDT) Analysis Performed At Patho logist Time Signature WBC 12.0 (H) 4.0 - 9.5 [facility] LABORATORY RBC 3.68 (L) 4.00 - [place] 5.21 [facility] x10(6)/[facility] LABORATORY Hemoglobin 11.0 (L) 11.7 - [place] 15.5 gm/dL [facility] Hematocrit 34.7 (L) 35.7 - [facility] 45.8 % [facility] MCV 94.3 82.6 - [facility] 94.4 [facility] LABORATORY MCH 29.9 27.1 - [place] 32.0 pg [facility] MCHC 31.7 31.7 - [place] 35.0 gm/dL [facility] Platelets 169 145 - 357 [facility] x10(3)/[facility] LABORATORY RDWSD 46.5 (H) 37.0 - [facility] [place] 46.0 [facility] LABORATORY RDWCV 13.5 11.5 - [facility] 14.1 % [facility] MPV 10.8 7.6 - 12.9 [facility] nRBC % Auto 0.0 % [facility] nRBC Abs Auto 0.000 0.000 - [place] 0.000 [facility] x10(3)/[facility] LABORATORY Specimen Anatomical Collection Method Collection Time Receive d Time (Source) Location / / Volume Laterality Blood specimen 01/08/2019 1:45 AM 019 1:56 (specimen) EDT AM EDT Resulting Agency Comment Spec In Lab Severino Larson MD HEMATOLOGY ORDERABLES Performing Organization Address City/State/[place] [address] (ABNORMAL) Basic Metabolic Panel (non-fasting) (01/08/2019 1:45 AM EDT) P athologist Signature Glucose Lvl 214 (H) 65 - 199 [facility] mg/dL [facility] Comment: Diabetes: >=200 mg/dL plus symp toms BUN 28 (H) 8 - 18 mg/dL [facility] Creatinine 0.92 0.70 - 1.20 mg/dL [facility] Sodium 144 135 - 145 mmol/L [facility] Potassium 3.5 3.5 - 5.0 mmol/L [facility] Comment: Please note: ??Patients with WBC >100,00 0 may have falsely elevated Potassium levels. ??For accurate Potassium quantif ication in these patients send serum separator tube (gold top) for subsequent determinations. ??Contact the Clinical Chemistry Laboratory if there are any qu estions. Chloride 113 (H) 98 - 107 mmol/L [facility] CO2 20 (L) 22 - 31 mmol/L [facility] Anion Gap 11 5 - 15 mmol/L [facility] Calcium 9.4 8.5 - 10.5 mg/dL [facility] Estimated GFR 68 >=60 mL/min/1.73 m?? [facility] Comment: The eGFR was calculated using the CKD-EP I equation. As with all creatinine based estimates of kidney function, eGFR values calculated with the CKD-EPI equation are not accurate in patients wi th acute kidney failure, extremes of body mass or the acutely ill. http://[employer]/[facility] TULSAnkf eGFR 79 >=60 mL/min/1.73 m?? [facility] Comment: The eGFR was calculated using the CKD-EP I equation. As with all creatinine based estimates of kidney function, eGFR values calculated with the CKD-EPI equation are not accurate in patients wi th acute kidney failure, extremes of body mass or the acutely ill. http://[employer]/DHnkf Specimen Anatomical Collection Method Collection Time Receive d Time (Source) Location / / Volume Laterality Blood specimen 01/08/2019 1:45 AM 019 1:56 (specimen) EDT AM EDT Resulting Agency Comment Spec In Lab Ace Henry MD CHEMISTRY ORDERABLES Performing Organization Address City/[facility]/ZIP Code Phon e Number [address] POCT Glucose (01/08/2019 1:07 AM EDT) athologist Signature POC Glucose 185 65 - 199 [place] mg/dL [facility] Comment: Supplemental ranges: <140 mg/dL before meals <180 mg/dL all other times of the day Specimen Anatomical Collection Method Collection Time Receive d Time (Source) Location / / Volume Laterality Blood specimen 01/08/2019 1:07 AM 019 1:07 (specimen) EDT AM EDT Ace Henry MD POINT OF CARE TEST ORDERABLE S Performing Organization Address City/[facility]/ZIP Code Phon e Number [address] POCT Glucose (01/08/2019 12:04 AM EDT) athologist Signature POC Glucose 191 65 - 199 [place] mg/dL [facility] Comment: Supplemental ranges: <140 mg/dL before meals <180 mg/dL all other times of the day Specimen Anatomical Collection Method Collection Time Receive d Time (Source) Location / / Volume Laterality Blood specimen 01/08/2019 12:04 9 (specimen) AM EDT 12:04 AM EDT Ace Henry MD POINT OF CARE TEST ORDERABLE S Performing Organization Address City/State/[place] [address] POCT Glucose (01/07/2019 10:17 PM EDT) athologist Signature POC Glucose 170 65 - 199 [place] mg/dL [facility] Comment: Supplemental ranges: <140 mg/dL before meals <180 mg/dL all other times of the day Specimen Anatomical Collection Method Collection Time Receive d Time (Source) Location / / Volume Laterality Blood specimen 01/07/2019 10:17 9 (specimen) PM EDT 10:17 PM EDT Ace Henry MD POINT OF CARE TEST ORDERABLE S Performing Organization Address City/[facility]/[place] [address] POCT Glucose (01/07/2019 8:55 PM EDT) P athologist Signature POC Glucose 149 65 - 199 [place] mg/dL [facility] Comment: Supplemental ranges: <140 mg/dL before meals <180 mg/dL all other times of the day Specimen Anatomical Collection Method Collection Time Receive d Time (Source) Location / / Volume Laterality Blood specimen 01/07/2019 8:55 PM 019 8:55 (specimen) EDT PM EDT Ace Henry MD POINT OF CARE TEST ORDERABLE S Performing Organization Address City/[facility]/[place] [address] POCT Glucose (01/07/2019 8:05 PM EDT) athologist Signature POC Glucose 152 65 - 199 [place] mg/dL [facility] Comment: Supplemental ranges: <140 mg/dL before meals <180 mg/dL all other times of the day Specimen Anatomical Collection Method Collection Time Receive d Time (Source) Location / / Volume Laterality Blood specimen 01/07/2019 8:05 PM 019 8:05 (specimen) EDT PM EDT Ace Henry MD POINT OF CARE TEST ORDERABLE S Performing Organization Address City/[facility]/[place] [address] POCT Glucose (01/07/2019 6:26 PM EDT) athologist Signature POC Glucose 150 65 - 199 [place] mg/dL [facility] Comment: Supplemental ranges: <140 mg/dL before meals <180 mg/dL all other times of the day Specimen Anatomical Collection Method Collection Time Receive d Time (Source) Location / / Volume Laterality Blood specimen 01/07/2019 6:26 PM 019 6:26 (specimen) EDT PM EDT Ace Henry MD POINT OF CARE TEST ORDERABLE S Performing Organization Address City/State/[place] [address] POCT Glucose (01/07/2019 5:02 PM EDT) P athologist Signature POC Glucose 148 65 - 199 [facility] mg/dL [facility] Comment: Supplemental ranges: <140 mg/dL before meals <180 mg/dL all other times of the day Specimen Anatomical Collection Method Collection Time Receive d Time (Source) Location / / Volume Laterality Blood specimen 01/07/2019 5:02 PM 019 5:02 (specimen) EDT PM EDT Ace Henry MD POINT OF CARE TEST ORDERABLE S Performing Organization Address [facility]/[place] [address] Specimen to Pathology (01/07/2019 5:00 PM EDT) Specimen Anatomical Collection Method Collection Time Receive d Time (Source) Location / / Volume Laterality AP Specimen 01/07/2019 5:00 PM 9 5:00 EDT PM EDT Narrative [facility] - 01/07/2019 5:00 PM EDT Specimen requisition ordered. ??Separate Pathology report to follow Ace Henry MD PATHOLOGY/CYTOLOGY ORDERABLE S Performing Organization Address City/[facility]/[place] [address] Specimen to Pathology (01/07/2019 4:29 PM EDT) Specimen Anatomical Collection Method Collection Time Receive d Time (Source) Location / / Volume Laterality AP Specimen 01/07/2019 4:29 PM 9 4:29 EDT PM EDT Narrative [facility] - 01/07/2019 4:29 PM EDT Specimen requisition ordered. ??Separate Pathology report to follow Ace Henry MD PATHOLOGY/CYTOLOGY ORDERABLE S Performing Organization Address City/State/[place] [address] Specimen to Pathology (01/07/2019 4:24 PM EDT) Specimen Anatomical Collection Method Collection Time Receive d Time (Source) Location / / Volume Laterality AP Specimen 01/07/2019 4:24 PM 9 4:24 EDT PM EDT Narrative [facility] - 01/07/2019 4:24 PM EDT Specimen requisition ordered. ??Separate Pathology report to follow Sarabjit Castelan MD PATHOLOGY/CYTOLOGY ORDERABLE S Performing Organization Address City/State/ZIP [place] [address] [facility] [address] Surgical Pathology Report (01/07/2019 4:23 PM EDT) Component Value Ref Test Analysis Performed At [facility] Range Method Time Signature Surgical [id number] ? Location: IC3N; IC37; [facility] Report The signing pathologist has (i) examined the relevant preparation(s) for the [facility] specimen(s) and (ii) rendered or confirmed the diagnosis(es) . HOSPITAL LABORATORY . ?Surgic al Pathology DIAGNOSIS CORRECTED REPORT (See Discussion) A - Small bowel implant, excision: Benign fibrosis, negative for malignancy. B - Omentum, resection: Omentum with acute serositis and focal fibrosis. C - Small bowel, resection: Segment of small bowel with acute serositis and edema. Unremarkable small bowel mucosa. Viable resection margins. Electronically signed by: ??Kimmy RUIZ, Ki Akhtar Verified: ??01/10/2019 ?Pathologist Performed at: ??-[facility] Dept. of Pathology, [place], [place] DISCUSSION Correction: The gross description of part C has been correct ed. CLINICAL INFORMATION Specimen Submitted: A - Small bowel implant r/o neoplasm for frozen section B - Omentum C - Small bowel Clinical History and Diagnosis: Biliary colic status post ex lap SPECIMEN PROCESSING A - Labeled/Fixative: Small bowel implant rule out neoplasm, formalin. Quantity/Size: Single, 1.8 x 1 x 1 cm. Tissue Description: First [place] whi te irregular unoriented soft tissue fragment with a zapata pink rubbery cut surface. Sections/Processing: The specimen is totally submitted for fr cheema section in 1 cassette labeled A1. ??jmb B - Labeled/Fixative: Omentum, fresh. Quantity/Size: Single, 8.5 x 5.5 x 2.0 cm. Tissue Description: Non-orie nted yellow-brown, coarsely lobulated omental type fat with adherent clotted blood. Sections/Processing: Sectioning demonstrates an eccentric 2.5 cm firm , hemorrhagic, fibrotic focus Director Of Exhibit Development sections in 3 cassettes as follows: ?B1: ??Hemorrhagic, fibrotic focus ?B2-B3: ??Additional employee's representative sections C - Labeled/Fixative: Small bowel, fresh. Resection Specimen: Intact, small bowel resection. Overall Size: 117 x 4.5 x 4.0 cm. Length/Diameter: 117 x 2.0 cm. External Architecture: Preserved. . SPECIMEN PROCESSING Serosa: Perez to red-brown, f ocally congested with scattered focally hemorrhagic adhesions. Mucosa: Slightly edematous zapata to red-brown but otherwise un remarkable. Wall: Averages 0.3 cm thick. Sections/Processing: Director Of Exhibit Development sections in 9 cassettes as follows: ?C1: ??Margins, en face ?C2-C9: ??Representing the mucosa ??shb ?Fro andi Section FROZEN SECTION DIAGNOSIS A - Small bowel implant r/o neoplasm for frozen section: AFS1: Fibrosis, capillary pr oliferation and surface active inflammation, no carcinoma is seen. 01/07/19 16:53 Electronically signed by: ??Snow Lozano MD Verified: ??01/07/2019 ?Pathologist Performed at: ??-[facility] Dept. of Pathology, [place], [place] This intraoperative consultation should be interpreted as a preliminary diagnosis pending review of the entire specimen and sp ecial studies, if any. Specimen (Source) Anatomical Collection Method Collection Time Re ceived Time Location / / Volume Laterality 01/07/2019 4:23 PM EDT Ace Henry MD PATHOLOGY/CYTOLOGY ORDERABLE S Performing Organization Address City/State/ZIP Code Phon e Number [address] POCT Glucose (01/07/2019 4:07 PM EDT) athologist Signature POC Glucose 140 65 - 199 [place] mg/dL [facility] Comment: Supplemental ranges: <140 mg/dL before meals <180 mg/dL all other times of the day Specimen Anatomical Collection Method Collection Time Receive d Time (Source) Location / / Volume Laterality Blood specimen 01/07/2019 4:07 PM 019 4:07 (specimen) EDT PM EDT Ace Henry MD POINT OF CARE TEST ORDERABLE S Performing Organization Address City/[facility]/[place] [address] POCT Glucose (01/07/2019 3:07 PM EDT) athologist Signature POC Glucose 134 65 - 199 [place] mg/dL [facility] Comment: Supplemental ranges: <140 mg/dL before meals <180 mg/dL all other times of the day Specimen Anatomical Collection Method Collection Time Receive d Time (Source) Location / / Volume Laterality Blood specimen 01/07/2019 3:07 PM 019 3:07 (specimen) EDT PM EDT Sarabjit Castelan MD POINT OF CARE TEST ORDERABLE S Performing Organization Address City/State/[place] [address] POCT Glucose (01/07/2019 2:14 PM EDT) athologist Signature POC Glucose 152 65 - 199 [place] mg/dL [facility] Comment: Supplemental ranges: <140 mg/dL before meals <180 mg/dL all other times of the day Specimen Anatomical Collection Method Collection Time Receive d Time (Source) Location / / Volume Laterality Blood specimen 01/07/2019 2:14 PM 019 2:14 (specimen) EDT PM EDT Sarabjit Castelan MD POINT OF CARE TEST ORDERABLE S Performing Organization Address City/State/ZIP Code Phon e Number [address] Phosphorus (01/07/2019 1:25 PM EDT) athologist Signature Phosphorus 2.6 2.5 - 4.5 [facility] Specimen Anatomical Collection Method Collection Time Receive d Time (Source) Location / / Volume Laterality Blood specimen 01/07/2019 1:25 PM 019 1:33 (specimen) EDT PM EDT Resulting Agency Comment Spec In Lab Ace Henry MD CHEMISTRY ORDERABLES Performing Organization Address City/[facility]/ZIP Code Phon e Number [address] Magnesium (01/07/2019 1:25 PM EDT) athologist Signature Magnesium 0.91 0.69 - 1.07 [facility] mmol/L [facility] Specimen Anatomical Collection Method Collection Time Receive d Time (Source) Location / / Volume Laterality Blood specimen 01/07/2019 1:25 PM 019 1:33 (specimen) EDT PM EDT Resulting Agency Comment Spec In Lab Ace Henry MD CHEMISTRY ORDERABLES Performing Organization Address City/[facility]/[place] [address] (ABNORMAL) Basic Metabolic Panel (non-fasting) (01/07/2019 1:25 PM EDT) athologist Signature Glucose Lvl 152 65 - 199 [facility] Comment: Diabetes: >=200 mg/dL plus symp toms BUN 22 (H) 8 - 18 mg/dL [facility] Creatinine 0.76 0.70 - 1.20 mg/dL [facility] Sodium 141 135 - 145 mmol/L [facility] Potassium 3.6 3.5 - 5.0 mmol/L [facility] Comment: Please note: ??Patients with WBC >100,00 0 may have falsely elevated Potassium levels. ??For accurate Potassium quantif ication in these patients send serum separator tube (gold top) for subsequent determinations. ??Contact the Clinical Chemistry Laboratory if there are any qu estions. Chloride 113 (H) 98 - 107 mmol/L [facility] CO2 20 (L) 22 - 31 mmol/L [facility] Anion Gap 8 5 - 15 mmol/L [facility] Calcium 9.4 8.5 - 10.5 mg/dL [facility] Estimated GFR 86 >=60 mL/min/1.73 m?? [facility] Comment: The eGFR was calculated using the CKD-EP I equation. As with all creatinine based estimates of kidney function, eGFR values calculated with the CKD-EPI equation are not accurate in patients wi th acute kidney failure, extremes of body mass or the acutely ill. http://[employer]/[facility]SAnkf eGFR 100 >=60 mL/min/1.73 m?? [facility] Comment: The eGFR was calculated using the CKD-EP I equation. As with all creatinine based estimates of kidney function, eGFR values calculated with the CKD-EPI equation are not accurate in patients wi th acute kidney failure, extremes of body mass or the acutely ill. http://[employer]/[facility]kf Specimen Anatomical Collection Method Collection Time Receive d Time (Source) Location / / Volume Laterality Blood specimen 01/07/2019 1:25 PM 019 1:33 (specimen) EDT PM EDT Resulting Agency Comment Spec In Lab Ace Henry MD CHEMISTRY ORDERABLES Performing Organization Address City/State/ZIP [place] [address] POCT Glucose (01/07/2019 1:16 PM EDT) P athologist Signature POC Glucose 152 65 - 199 [facility] mg/dL [facility] Comment: Supplemental ranges: <140 mg/dL before meals <180 mg/dL all other times of the day Specimen Anatomical Collection Method Collection Time Receive d Time (Source) Location / / Volume Laterality Blood specimen 01/07/2019 1:16 PM 019 1:16 (specimen) EDT PM EDT Sarabjit Castelan MD POINT OF CARE TEST ORDERABLE S Performing Organization Address City/State/[place] [address] POCT Glucose (01/07/2019 12:10 PM EDT) P athologist Signature POC Glucose 146 65 - 199 [place] mg/dL [facility] Comment: Supplemental ranges: <140 mg/dL before meals <180 mg/dL all other times of the day Specimen Anatomical Collection Method Collection Time Receive d Time (Source) Location / / Volume Laterality Blood specimen 01/07/2019 12:10 9 (specimen) PM EDT 12:10 PM EDT Sarabjit Castelan MD POINT OF CARE TEST ORDERABLE S Performing Organization Address City/State/[place] [address] POCT Glucose (01/07/2019 10:52 AM EDT) P athologist Signature POC Glucose 180 65 - 199 [place] mg/dL [facility] Comment: Supplemental ranges: <140 mg/dL before meals <180 mg/dL all other times of the day Specimen Anatomical Collection Method Collection Time Receive d Time (Source) Location / / Volume Laterality Blood specimen 01/07/2019 10:52 9 (specimen) AM EDT 10:52 AM EDT Sarabjit Castelan MD POINT OF CARE TEST ORDERABLE S Performing Organization Address City/State/[place] [address] POCT Glucose (01/07/2019 9:48 AM EDT) P athologist Signature POC Glucose 171 65 - 199 [place] mg/dL [facility] Comment: Supplemental ranges: <140 mg/dL before meals <180 mg/dL all other times of the day Specimen Anatomical Collection Method Collection Time Receive d Time (Source) Location / / Volume Laterality Blood specimen 01/07/2019 9:48 AM 019 9:48 (specimen) EDT AM EDT Sarabjit Castelan MD POINT OF CARE TEST ORDERABLE S Performing Organization Address City/State/ZIP [place] [address] (ABNORMAL) BLOOD GAS 2 VENOUS (01/07/2019 8:46 AM EDT) Analysis Performed At Patho logist Time Signature pH Ervin 7.36 7.32 - [facility] 7.42 [facility] pCO2 Ervin 41 41 - 51 [facility] LABORATORY pO2 Ervin 37 25 - 40 [facility] LABORATORY HCO3 Ervin 22.7 mmol/L [facility] BE Ervin -2.7 mmol/L [facility] Hgb Blood Gas 11.4 (L) 11.7 - [facility] 15.5 gm/dL [facility] O2HB Ervin 71.1 % [facility] COHB Ervin 0.4 % [facility] Comment: Nonsmokers: 0.5-1.5% COHB Smokers: Variable, but usually less than 10% Toxic: 20-30% COHB Lethal: Greater than 60% COHB METHB Ervin 0.3 <=1.5 % [facility] LABORAT[facility] Na Whole Blood 141 135 - 145 mmol/L [facility] K Whole Blood 3.7 3.5 - 5.0 mmol/L [facility] Comment: Please note: Patients with WBC >100,000 may have falsely elevated Potassium levels. Contact the Clinical Chemistry L aboratory if there are any questions. ICa Whole Blood 1.32 1.15 - 1.33 mmol/L [facility] Comment: Note: ??Total bilirubin higher than 20 m g/dL may lead to falsely low ionized calcium. CL Whole Blood 111 (H) 98 - 107 mmol/L [facility]ORY Gluc Whole Bld 202 (H) 65 - 199 mg/dL [facility] Comment: Diabetes: >=200 mg/dL plus symp toms Lactate WB 2.2 0.5 - 2.2 mmol/L [facility] FIO2 Ervin 30 % [facility] BGas Source Venous [facility] Specimen Anatomical Collection Method Collection Time Receive d Time (Source) Location / / Volume Laterality Blood specimen 01/07/2019 8:46 AM 019 8:46 (specimen) EDT AM EDT Sarabjit Castelan MD CHEMISTRY ORDERABLES Performing Organization Address City/State/ZIP [place] [address] (ABNORMAL) Differential, Automated (01/07/2019 8:40 AM EDT) [facility] gist Method Time Signature Neutrophils % 69.5 % [facility] Neutr Abs (ANC) 7.68 (H) 1.70 - [facility] 6.10 [facility] x10(3)/[facility] LABORATORY Lymphocytes % 20.3 % [facility] Lymphocytes Abs 2.2 0.9 - 3.2 [facility] x10(3)/[facility] LABORATORY Monocytes % 7.3 % [facility] Monocyte Abs 0.8 0.3 - 0.9 [facility] x10(3)/[facility] LABORATORY Eosinophils % 2.2 % [facility] Eosinophils Abs 0.2 0.0 - 0.4 [facility] x10(3)/[facility] LABORATORY Basophils % 0.2 % [facility] Basophils Abs 0.0 0.0 - 0.1 [facility] x10(3)/[facility] LABORATORY Immature Gran % 0.50 % [facility] Comment: Immature granulocytes(IG's)percentage an d absolute count will include metamyelocytes, myelocytes, and promyelo cytes. Blood smears from CBCs yielding IG's will be scanned manually for concor dance. If this scan disagrees with the automated IG or if promyelocytes are not ed, a manual differential will be performed. Irina Gran Abs 0.06 (H) 0.00 - 0.04 x10(3)/[facility] LABORATORY Specimen Anatomical Collection Method Collection Time Receive d Time (Source) Location / / Volume Laterality Blood specimen 01/07/2019 8:40 AM 019 9:10 (specimen) EDT AM EDT Resulting Agency Comment Spec In Lab Severino Larson MD HEMATOLOGY ORDERABLES Performing Organization Address City/[facility]/ZIP [place] [address] (ABNORMAL) Hemogram (01/07/2019 8:40 AM EDT) Analysis Performed At Patho logist Time Signature WBC 11.0 (H) 4.0 - 9.5 [facility] x10(3)/[facility] LABORATORY RBC 3.43 (L) 4.00 - [facility] 5.21 [facility] x10(6)/[facility] LABORATORY Hemoglobin 10.4 (L) 11.7 - [facility] 15.5 gm/dL [facility] LABORATORY Hematocrit 32.6 (L) 35.7 - [facility] 45.[facility] % [facility] MCV 95.0 (H) 82.6 - [facility] 94.4 [facility] LABORATORY MCH 30.3 27.1 - [facility] 32.0 pg [facility]AT[facility] MCHC 31.9 31.7 - [facility] 35.0 gm/dL [facility] Platelets 155 145 - 357 [facility] x10(3)/[facility] LABORATORY RDWSD 46.2 (H) 37.0 - [facility] 46.0 [facility] LABORATORY RDWCV 13.2 11.5 - [facility] 14.1 % [facility] LABORATORY MPV 10.9 7.6 - 12.9 [facility] LABORATORY nRBC % Auto 0.0 % [facility] LAB[facility] nRBC Abs Auto 0.000 0.000 - [facility] 0.000 [facility] x10(3)/[facility] LABORATORY Specimen Anatomical Collection Method Collection Time Receive d Time (Source) Location / / Volume Laterality Blood specimen 01/07/2019 8:40 AM 019 9:10 (specimen) EDT AM EDT Resulting Agency Comment Spec In Lab Severino Larson MD HEMATOLOGY ORDERABLES Performing Organization Address City/State/ZIP [place] [address] (ABNORMAL) Basic Metabolic Panel (non-fasting) (01/07/2019 8:40 AM EDT) athologist Signature Glucose Lvl 202 (H) 65 - 199 [facility] mg/dL [facility] Comment: Diabetes: >=200 mg/dL plus symp toms BUN 24 (H) 8 - 18 mg/dL [facility] LABORATORY Creatinine 0.83 0.70 - 1.20 mg/dL [facility] LABORATORY Sodium 144 135 - 145 mmol/L [facility]ORAT[facility] Potassium 3.9 3.5 - 5.0 mmol/L [facility] Comment: Please note: ??Patients with WBC >100,00 0 may have falsely elevated Potassium levels. ??For accurate Potassium quantif ication in these patients send serum separator tube (gold top) for subsequent determinations. ??Contact the Clinical Chemistry Laboratory if there are any qu estions. Chloride 111 (H) 98 - 107 mmol/L [facility] CO2 21 (L) 22 - 31 mmol/L [facility] Anion Gap 12 5 - 15 mmol/L [facility] LAB[facility]ORY Calcium 9.8 8.5 - 10.5 mg/dL [facility] Estimated GFR 77 >=60 mL/min/1.73 m?? [facility] Comment: The eGFR was calculated using the CKD-EP I equation. As with all creatinine based estimates of kidney function, eGFR values calculated with the CKD-EPI equation are not accurate in patients wi th acute kidney failure, extremes of body mass or the acutely ill. http://[employer]/[facility]Ankf eGFR 89 >=60 mL/min/1.73 m?? [facility] Comment: The eGFR was calculated using the CKD-EP I equation. As with all creatinine based estimates of kidney function, eGFR values calculated with the CKD-EPI equation are not accurate in patients wi th acute kidney failure, extremes of body mass or the acutely ill. http://[employer]/[facility]kf Specimen Anatomical Collection Method Collection Time Receive d Time (Source) Location / / Volume Laterality Blood specimen 01/07/2019 8:40 AM 019 9:10 (specimen) EDT AM EDT Resulting Agency Comment Spec In Lab Ace Henry MD CHEMISTRY ORDERABLES Performing Organization Address City/[facility]/ZIP Code Phon e Number [address] POCT Glucose (01/07/2019 8:33 AM EDT) athologist Signature POC Glucose 191 65 - 199 [place] mg/dL [facility] Comment: Supplemental ranges: <140 mg/dL before meals <180 mg/dL all other times of the day Specimen Anatomical Collection Method Collection Time Receive d Time (Source) Location / / Volume Laterality Blood specimen 01/07/2019 8:33 AM 019 8:33 (specimen) EDT AM EDT Sarabjit Castelan MD POINT OF CARE TEST ORDERABLE S Performing Organization Address City/State/[place] [address] (ABNORMAL) POCT Glucose (01/07/2019 7:15 AM EDT) athologist Signature POC Glucose 235 (H) 65 - 199 [place] mg/dL [facility] Comment: Supplemental ranges: <140 mg/dL before meals <180 mg/dL all other times of the day Specimen Anatomical Collection Method Collection Time Receive d Time (Source) Location / / Volume Laterality Blood specimen 01/07/2019 7:15 AM 019 7:15 (specimen) EDT AM EDT Sarabjit Castelan MD POINT OF CARE TEST ORDERABLE S Performing Organization Address City/[facility]/ZIP Code Phon e Number [address] (ABNORMAL) POCT Glucose (01/07/2019 6:16 AM EDT) P athologist Signature POC Glucose 237 (H) 65 - 199 [place] mg/dL [facility] Comment: Supplemental ranges: <140 mg/dL before meals <180 mg/dL all other times of the day Specimen Anatomical Collection Method Collection Time Receive d Time (Source) Location / / Volume Laterality Blood specimen 01/07/2019 6:16 AM 019 6:16 (specimen) EDT AM EDT Sarabjit Castelan MD POINT OF CARE TEST ORDERABLE S Performing Organization Address City/State/[place] [address] (ABNORMAL) POCT Glucose (01/07/2019 5:17 AM EDT) P athologist Signature POC Glucose 220 (H) 65 - 199 [facility] mg/dL [facility] Comment: Supplemental ranges: <140 mg/dL before meals <180 mg/dL all other times of the day Specimen Anatomical Collection Method Collection Time Receive d Time (Source) Location / / Volume Laterality Blood specimen 01/07/2019 5:17 AM 019 5:17 (specimen) EDT AM EDT Sarabjit Castelan MD POINT OF CARE TEST ORDERABLE S Performing Organization Address City/[facility]/[place] [address] (ABNORMAL) POCT Glucose (01/07/2019 4:16 AM EDT) P athologist Signature POC Glucose 213 (H) 65 - 199 [facility] mg/dL [facility] Comment: Supplemental ranges: <140 mg/dL before meals <180 mg/dL all other times of the day Specimen Anatomical Collection Method Collection Time Receive d Time (Source) Location / / Volume Laterality Blood specimen 01/07/2019 4:16 AM 019 4:16 (specimen) EDT AM EDT Sarabjit Castelan MD POINT OF CARE TEST ORDERABLE S Performing Organization Address City/State/ZIP Code Phon e Number [address] (ABNORMAL) Differential, Automated (01/07/2019 4:15 AM EDT) [facility] gist Method Time Signature Neutrophils % 70.8 % [facility] Neutr Abs (ANC) 7.40 (H) 1.70 - [facility] 6.10 [facility] x10(3)/[facility] L LABORATORY Lymphocytes % 18.1 % [facility] Lymphocytes Abs 1.9 0.9 - 3.2 [facility] x10(3)/[facility] LABORATORY Monocytes % 8.2 % [facility] Monocyte Abs 0.9 0.3 - 0.9 [facility] x10(3)/[facility] LABORATORY Eosinophils % 2.3 % [facility] Eosinophils Abs 0.2 0.0 - 0.4 [facility] x10(3)/[facility] LABORATORY Basophils % 0.1 % [facility] Basophils Abs 0.0 0.0 - 0.1 [facility] x10(3)/[facility] LABORATORY Immature Gran % 0.50 % [facility] Comment: Immature granulocytes(IG's)percentage an d absolute count will include metamyelocytes, myelocytes, and promyelo cytes. Blood smears from CBCs yielding IG's will be scanned manually for concor dance. If this scan disagrees with the automated IG or if promyelocytes are not ed, a manual differential will be performed. Irina Gran Abs 0.05 (H) 0.00 - 0.04 x10(3)/[facility] LABORATORY Specimen Anatomical Collection Method Collection Time Receive d Time (Source) Location / / Volume Laterality Blood specimen 01/07/2019 4:15 AM 019 4:27 (specimen) EDT AM EDT Resulting Agency Comment Spec In Lab Severino Larson MD HEMATOLOGY ORDERABLES Performing Organization Address City/State/ZIP [place] [address] (ABNORMAL) Hemogram (01/07/2019 4:15 AM EDT) Analysis Performed At Patho logist Time Signature WBC 10.4 (H) 4.0 - 9.5 [facility] x10(3)/[facility] LABORATORY RBC 3.46 (L) 4.00 - [facility] 5.21 [facility] x10(6)/[facility] LABORATORY Hemoglobin 10.2 (L) 11.7 - [place] 15.5 gm/dL [facility] LABORATORY Hematocrit 32.5 (L) 35.7 - [place] 45.8 % [facility] LABORATORY MCV 93.9 82.6 - [facility] 94[facility]4 [facility] LABORATORY MCH 29.5 27.1 - [place] 32.0 pg [facility] LABORATORY MCHC 31.4 (L) 31.7 - [place] 35.0 gm/dL [facility] LABORATORY Platelets 154 145 - 357 [facility] x10(3)/[facility] LABORATORY RDWSD 46.0 37.0 - [place] 46.0 [facility] LABORATORY RDWCV 13.3 11.5 - [place] 14.1 % [facility] LABORATORY MPV 10.7 7.6 - 12.9 [facility] LABORATORY nRBC % Auto 0.0 % [facility] LABORATORY nRBC Abs Auto 0.000 0.000 - [place] 0.000 [facility] x10(3)/[facility] LABORATORY Specimen Anatomical Collection Method Collection Time Receive d Time (Source) Location / / Volume Laterality Blood specimen 01/07/2019 4:15 AM 019 4:27 (specimen) EDT AM EDT Resulting Agency Comment Spec In Lab Severino Larson MD HEMATOLOGY ORDERABLES Performing Organization Address City/[facility] [place] [address] Phosphorus (01/07/2019 4:15 AM EDT) P athologist Signature Phosphorus 3.2 2.5 - 4.5 [place] mg/dL [facility] LABORATORY Specimen Anatomical Collection Method Collection Time Receive d Time (Source) Location / / Volume Laterality Blood specimen 01/07/2019 4:15 AM 019 4:27 (specimen) EDT AM EDT Resulting Agency Comment Spec In Lab Ace Henry MD CHEMISTRY ORDERABLES Performing Organization Address City/[facility]/[place] [address] Magnesium (01/07/2019 4:15 AM EDT) athologist Signature Magnesium 0.77 0.69 - 1.07 [facility] mmol/L [facility] Specimen Anatomical Collection Method Collection Time Receive d Time (Source) Location / / Volume Laterality Blood specimen 01/07/2019 4:15 AM 019 4:27 (specimen) EDT AM EDT Resulting Agency Comment Spec In Lab Ace Henry MD CHEMISTRY ORDERABLES Performing Organization Address City/State/ZIP [place] [address] (ABNORMAL) Basic Metabolic Panel (non-fasting) (01/07/2019 4:15 AM EDT) athologist Signature Glucose Lvl 216 (H) 65 - 199 [facility] mg/dL [facility] Comment: Diabetes: >=200 mg/dL plus symp toms BUN 24 (H) 8 - 18 mg/dL [facility] Creatinine 0.84 0.70 - 1.20 mg/dL [facility] Sodium 143 135 - 145 mmol/L [facility] Potassium 3.6 3.5 - 5.0 mmol/L [facility] Comment: Please note: ??Patients with WBC >100,00 0 may have falsely elevated Potassium levels. ??For accurate Potassium quantif ication in these patients send serum separator tube (gold top) for subsequent determinations. ??Contact the Clinical Chemistry Laboratory if there are any qu estions. Chloride 110 (H) 98 - 107 mmol/L [facility] CO2 22 22 - 31 mmol/L [facility] Anion Gap 11 5 - 15 mmol/L [facility] Calcium 9.8 8.5 - 10.5 mg/dL [facility] Estimated GFR 76 >=60 mL/min/1.73 m?? [facility] Comment: The eGFR was calculated using the CKD-EP I equation. As with all creatinine based estimates of kidney function, eGFR values calculated with the CKD-EPI equation are not accurate in patients wi th acute kidney failure, extremes of body mass or the acutely ill. http://[employer]/DHMCnkf eGFR 88 >=60 mL/min/1.73 m?? [facility] Comment: The eGFR was calculated using the CKD-EP I equation. As with all creatinine based estimates of kidney function, eGFR values calculated with the CKD-EPI equation are not accurate in patients wi th acute kidney failure, extremes of body mass or the acutely ill. http://[employer]/[facility]OU[facility] – TULSAnkf Specimen Anatomical Collection Method Collection Time Receive d Time (Source) Location / / Volume Laterality Blood specimen 01/07/2019 4:15 AM 019 4:27 (specimen) EDT AM EDT Resulting Agency Comment Spec In Lab Ace Henry MD CHEMISTRY ORDERABLES Performing Organization Address City/[facility] [place] [address] (ABNORMAL) POCT Glucose (01/07/2019 3:29 AM EDT) P athologist Signature POC Glucose 208 (H) 65 - 199 [facility] Comment: Supplemental ranges: <140 mg/dL before meals <180 mg/dL all other times of the day Specimen Anatomical Collection Method Collection Time Receive d Time (Source) Location / / Volume Laterality Blood specimen 01/07/2019 3:29 AM 019 3:29 (specimen) EDT AM EDT Sarabjit Castelan MD POINT OF CARE TEST ORDERABLE S Performing Organization Address City/State/[place] [address] POCT Glucose (01/07/2019 1:43 AM EDT) P athologist Signature POC Glucose 150 65 - 199 [facility]dL [facility] Comment: Supplemental ranges: <140 mg/dL before meals <180 mg/dL all other times of the day Specimen Anatomical Collection Method Collection Time Receive d Time (Source) Location / / Volume Laterality Blood specimen 01/07/2019 1:43 AM 019 1:43 (specimen) EDT AM EDT Sarabjit Castelan MD POINT OF CARE TEST ORDERABLE S Performing Organization Address City/State/ZIP Code Phon e Number [address] POCT Glucose (01/07/2019 12:43 AM EDT) P athologist Signature POC Glucose 128 65 - 199 [place] mg/dL [facility] Comment: Supplemental ranges: <140 mg/dL before meals <180 mg/dL all other times of the day Specimen Anatomical Collection Method Collection Time Receive d Time (Source) Location / / Volume Laterality Blood specimen 01/07/2019 12:43 9 (specimen) AM EDT 12:43 AM EDT Sarabjit Castelan MD POINT OF CARE TEST MICHAEL S Performing Organization Address City/[facility]/ZIP Code Phon e Number [address] POCT Glucose (01/07/2019 12:12 AM EDT) athologist Signature POC Glucose 99 65 - 199 [facility] mg/dL [facility] Comment: Supplemental ranges: <140 mg/dL before meals <180 mg/dL all other times of the day Specimen Anatomical Collection Method Collection Time Receive d Time (Source) Location / / Volume Laterality Blood specimen 01/07/2019 12:12 9 (specimen) AM EDT 12:12 AM EDT Sarabjit Castelan MD POINT OF CARE TEST ORDERABLE S Performing Organization Address City/State/[place] [address] POCT Glucose (01/06/2019 11:50 PM EDT) athologist Signature POC Glucose 112 65 - 199 [place] mg/dL [facility] Comment: Supplemental ranges: <140 mg/dL before meals <180 mg/dL all other times of the day Specimen Anatomical Collection Method Collection Time Receive d Time (Source) Location / / Volume Laterality Blood specimen 01/06/2019 11:50 9 (specimen) PM EDT 11:50 PM EDT Sarabjit Castelan MD POINT OF CARE TEST ORDERDANTE S Performing Organization Address City/State/ZIP [place] [address] POCT Glucose (01/06/2019 11:17 PM EDT) P athologist Signature POC Glucose 109 65 - 199 [place] mg/dL [facility] Comment: Supplemental ranges: <140 mg/dL before meals <180 mg/dL all other times of the day Specimen Anatomical Collection Method Collection Time Receive d Time (Source) Location / / Volume Laterality Blood specimen 01/06/2019 11:17 9 (specimen) PM EDT 11:17 PM EDT Sarabjit Castelan MD POINT OF CARE TEST ORDERABLE S Performing Organization Address City/State/ZIP Code Phon e Number [address] POCT Glucose (01/06/2019 10:05 PM EDT) athologist Signature POC Glucose 143 65 - 199 [facility] mg/dL [facility] Comment: Supplemental ranges: <140 mg/dL before meals <180 mg/dL all other times of the day Specimen Anatomical Collection Method Collection Time Receive d Time (Source) Location / / Volume Laterality Blood specimen 01/06/2019 10:05 9 (specimen) PM EDT 10:05 PM EDT Sarajbit Castelan MD POINT OF CARE TEST ORDERABLE S Performing Organization Address City/State/ZIP Code Phon e Number [place], [place] [id number] [place] [address] POCT Glucose (01/06/2019 9:27 PM EDT) athologist Signature POC Glucose 162 65 - 199 [place] mg/dL [facility] Comment: Supplemental ranges: <140 mg/dL before meals <180 mg/dL all other times of the day Specimen Anatomical Collection Method Collection Time Receive d Time (Source) Location / / Volume Laterality Blood specimen 01/06/2019 9:27 PM 019 9:27 (specimen) EDT PM EDT Sarabjit Castelan MD POINT OF CARE TEST ORDERABLE S Performing Organization Address City/State/[place] [address] (ABNORMAL) POCT Glucose (01/06/2019 8:17 PM EDT) P athologist Signature POC Glucose 230 (H) 65 - 199 [facility] Comment: Supplemental ranges: <140 mg/dL before meals <180 mg/dL all other times of the day Specimen Anatomical Collection Method Collection Time Receive d Time (Source) Location / / Volume Laterality Blood specimen 01/06/2019 8:17 PM 019 8:17 (specimen) EDT PM EDT Sarabjit Castelan MD POINT OF CARE TEST ORDERABLE S Performing Organization Address City/State/[place] [address] (ABNORMAL) POCT Glucose (01/06/2019 7:38 PM EDT) athologist Signature POC Glucose 213 (H) 65 - 199 [facility] Comment: Supplemental ranges: <140 mg/dL before meals <180 mg/dL all other times of the day Specimen Anatomical Collection Method Collection Time Receive d Time (Source) Location / / Volume Laterality Blood specimen 01/06/2019 7:38 PM 019 7:38 (specimen) EDT PM EDT Sarabjit Castelan MD POINT OF CARE TEST ORDERABLE S Performing Organization Address City/State/[place] [address] POCT Glucose (01/06/2019 6:59 PM EDT) P athologist Signature POC Glucose 183 65 - 199 [facility] Comment: Supplemental ranges: <140 mg/dL before meals <180 mg/dL all other times of the day Specimen Anatomical Collection Method Collection Time Receive d Time (Source) Location / / Volume Laterality Blood specimen 01/06/2019 6:59 PM 019 6:59 (specimen) EDT PM EDT Sarabjit Castelan MD POINT OF CARE TEST ORDERDANTE S Performing Organization Address City/State/ZIP [place] [address] (ABNORMAL) POCT Glucose (01/06/2019 6:23 PM EDT) P athologist Signature POC Glucose 217 (H) 65 - 199 [place] [place] mg/dL [facility] Comment: Supplemental ranges: <140 mg/dL before meals <180 mg/dL all other times of the day Specimen Anatomical Collection Method Collection Time Receive d Time (Source) Location / / Volume Laterality Blood specimen 01/06/2019 6:23 PM 019 6:23 (specimen) EDT PM EDT Sarabjit Castelan MD POINT OF CARE TEST ORDERABLE S Performing Organization Address City/State/ZIP Code Phon e Number [place] [id number] CT Chest wo Contrast (Generic) (01/06/2019 5:51 PM EDT) Anatomical Region Laterality Modality Chest Computed Tomography Specimen (Source) Anatomical Location Collection Method / Collectio n Time Received Time / Laterality Volume Impressions 01/07/2019 7:03 AM EDT 1. ??Trace right and small left pleural effusions. Subtotal atelectasis of the lower lobes. 2. ??Additional perihilar and dependent left upper lobe consolidative opacities concerning for aspiration pneumonitis. I have personally reviewed the image(s) and the residents interpretation and agree with the findings, Brandi Reyes at 01/07/2019 7:03 AM Thank you for letting us participate in the care of this patient. For questions regarding this report, please contact e number below. ? Electronically signed by: Maciel José Count Includes [facility] ([phone]), at 01/07/2019 7:03 AM Narrative 01/07/2019 7:03 AM EDT EXAMINATION: CT CHEST WO CONTRAST (GENERIC) CLINICAL HISTORY: looking for loculation or possible fluid collections currently intubated on sedation with pre cedex TECHNIQUE: 3.75mm thick axial contiguous sections were obtained through the chest via helical acquisition without in travenous contrast administration. Thin-section reconstructions as well as coronal and sagittal reformatted images were generated. COMPARISON: Chest radiograph dated 2018. FINDINGS: Pulmonary parenchyma: There are perihila r consolidative opacities most confluent in the dependent aspect of the left uppe r lobe. Additionally, there is subtotal atelectasis of both lower lobes. Airways: An endotracheal tube tip termin ates in the lower thoracic trachea. Pleura: Trace subpulmonic right and smal l left pleural effusions. Lymph nodes:No significant findings. Heart, pericardium, and great vessels: M ild cardiomegaly. No pericardial effusion. There are coronary artery and scattered aortic valve calcifications. Normal caliber thoracic aorta. Other mediastinal structures: No signifi cant findings. Lower neck: No significant findings. Upper abdomen: An enteric tube is extend s into the stomach.. Body wall soft tissues: No significant f indings. Skeletal structures: Mild degenerative c hanges to the mid thoracic spine as characterized by bridging anterior osteo phytosis. Procedure Note Brandi Reyes MD - 01/07/2019 EXAMINATION: CT CHEST WO CONTRAST (GENER IC) CLINICAL HISTORY: looking for loculation or possible fluid collections currently intubated on sedation with pre cedex TECHNIQUE: 3.75mm thick axial contiguous sections were obtained through the chest via helical acquisition without in travenous contrast administration. Thin-section reconstructions as well as coronal and sagittal reformatted images were generated. COMPARISON: Chest radiograph dated 2018. FINDINGS: Pulmonary parenchyma: There are perihila r consolidative opacities most confluent in the dependent aspect of the left uppe r lobe. Additionally, there is subtotal atelectasis of both lower lobes. Airways: An endotracheal tube tip termin ates in the lower thoracic trachea. Pleura: Trace subpulmonic right and smal l left pleural effusions. Lymph nodes:No significant findings. Heart, pericardium, and great vessels: M ild cardiomegaly. No pericardial effusion. There are coronary artery and scattered aortic valve calcifications. Normal caliber thoracic aorta. Other mediastinal structures: No signifi cant findings. Lower neck: No significant findings. Upper abdomen: An enteric tube is extend s into the stomach.. Body wall soft tissues: No significant f indings. Skeletal structures: Mild degenerative c hanges to the mid thoracic spine as characterized by bridging anterior osteo phytosis. IMPRESSION 1. Trace right and small left pleural ef fusions. Subtotal atelectasis of the lower lobes. 2. Additional perihilar and dependent le ft upper lobe consolidative opacities concerning for aspiration pneumonitis. I have personally reviewed the image(s) and the residents interpretation and agree with the findings, Brandi Reyes at 01/07/2019 7:03 AM Thank you for letting us participate in the care of this patient. For questions regarding this report, please contact [facility] number below. Electronically signed by: Maciel José Count Includes [facility] ([phone]), at 01/07/2019 7:03 AM Ace Henry MD IMG CT ORDERABLES CT Angiogram Abdomen & Pelvis w Contrast (Generic) (01/06/2019 5:51 PM EDT) Anatomical Region Laterality Modality Abdomen, Pelvis Computed Tomography Specimen (Source) Anatomical Location Collection Method / Collectio n Time Received Time / Laterality Volume Impressions 01/07/2019 8:20 AM EDT Large ventral abdominal wall defect with open abdominal wound with evidence of ischemia within the herniated loops of s mall bowel within and abutting abdominal wall. This represents a change from the prelim inary report.? Changes and final impression discussed w ith Dr. Kendra Schreiber by Dr. Varun Ang at 8:05 AM on 01/07/2019. I have personally reviewed the image(s) and the residents interpretation and agree with the findings, Brandi Reyes at 01/07/2019 8:20 AM Thank you for letting us participate in the care of this patient. For questions regarding this report, please contact e number below. ? Electronically signed by: Maciel José Count Includes [facility] ([phone]), at 01/07/2019 8:20 AM Narrative 01/07/2019 8:20 AM EDT EXAMINATION: CT ANGIOGRAM ABDOMEN AND PELVIS W CONTRAST (GENERIC) CLINICAL HISTORY: to look for mesenteric ischemic vs atherosclerotic disease that would cause transient ischemia currently intubated on sedation with pre cedex TECHNIQUE: Helical CT angiogram of the a bdomen and pelvis was performed following intravenous administration of contrast. 75 cc of Omnipaque 350. MPRs were performed. Multiplanar images were reviewed and 3-D images were generated on an independent workstation. COMPARISON: CT abdomen pelvis dated 11/08. CT chest dated 01/06/2019. FINDINGS: VASCULAR FINDINGS Abdominal aorta: Normal caliber. Moderat e calcification of the infrarenal abdominal aorta. Celiac: Mild calcification at the origin , otherwise patent. SMA: Mild calcification at the origin, o therwise patent. Right renal artery: Single, patent. Left renal artery: Two, patent. KELLY: Mild narrowing from calcification, otherwise patent. Right: Common iliac artery: Widely patent. External iliac artery: Widely patent. Internal iliac artery: Widely patent. Common femoral artery: Widely patent. Proximal superficial femoral artery: Pat ent. Proximal profunda femoris artery: Patent . Left: Common iliac artery: Widely patent. External iliac artery: Widely patent. Internal iliac artery: Widely patent. Common femoral artery: Widely patent. Proximal superficial femoral artery: Pat ent. Proximal profunda femoris artery: Patent . NON-VASCULAR FINDINGS Lower chest: Small subpulmonic effusions and subtotal lower lobe atelectasis, left greater than right. Liver: Splenomegaly and diffuse hepatic steatosis. Bile ducts: Non-dilated. Gallbladder: Absent. Pancreas: Normal attenuation. No duct di lation. Spleen: Splenomegaly. Adrenals: Normal. Kidneys: Normal symmetric enhancement. N o hydronephrosis. Lymph Nodes: No lymphadenopathy. Bowel/peritoneum: An enteric tube tip te rminates within the stomach. Interval laparotomy with open abdominal wall defe ct with vacuum dressing in place. There are there are multiple loops of distal s mall bowel that extend from the peritoneal cavity into the abdominal wal l defect, with mucosal wall thickening and associated mesenteric stranding and fluid and mucosal wall thickening of the small bowel. There is also pneumatosis, within some of the loops of bowel just proximal to and extending into the abdom inal wall defect, for example, series 14 image 111. There is adjacent mesenteric venous gas, series 12 image 691 and series 13 image 79. No portal venous gas . No free air. Abdominal wall: Abdominal wall defect wi th vacuum dressing in place. Urinary Bladder: Completely decompressed with Zheng in place. Reproductive organs: Absent. No adnexal masses. Osseous structures: Advanced degenerativ e changes of the bilateral hip joints, left greater than right. Multilevel flow ing anterior disc osteophytes at the lower thoracic spine. Procedure Note Brandi Reyes MD - 01/07/2019 EXAMINATION: CT ANGIOGRAM ABDOMEN AND PE LVIS W CONTRAST (GENERIC) CLINICAL HISTORY: to look for mesenteric ischemic vs atherosclerotic disease that would cause transient ischemia currently intubated on sedation with pre cedex TECHNIQUE: Helical CT angiogram of the a bdomen and pelvis was performed following intravenous administration of contrast. 75 cc of Omnipaque 350. MPRs were performed. Multiplanar images were reviewed and 3-D images were generated on an independent workstation. COMPARISON: CT abdomen pelvis dated 11/08. CT chest dated 01/06/2019. FINDINGS: VASCULAR FINDINGS Abdominal aorta: Normal caliber. Moderat e calcification of the infrarenal abdominal aorta. Celiac: Mild calcification at the origin , otherwise patent. SMA: Mild calcification at the origin, o therwise patent. Right renal artery: Single, patent. Left renal artery: Two, patent. KELLY: Mild narrowing from calcification, otherwise patent. Right: Common iliac artery: Widely patent. External iliac artery: Widely patent. Internal iliac artery: Widely patent. Common femoral artery: Widely patent. Proximal superficial femoral artery: Pat ent. Proximal profunda femoris artery: Patent . Left: Common iliac artery: Widely patent. External iliac artery: Widely patent. Internal iliac artery: Widely patent. Common femoral artery: Widely patent. Proximal superficial femoral artery: Pat ent. Proximal profunda femoris artery: Patent . NON-VASCULAR FINDINGS Lower chest: Small subpulmonic effusions and subtotal lower lobe atelectasis, left greater than right. Liver: Splenomegaly and diffuse hepatic steatosis. Bile ducts: Non-dilated. Gallbladder: Absent. Pancreas: Normal attenuation. No duct di lation. Spleen: Splenomegaly. Adrenals: Normal. Kidneys: Normal symmetric enhancement. N o hydronephrosis. Lymph Nodes: No lymphadenopathy. Bowel/peritoneum: An enteric tube tip te rminates within the stomach. Interval laparotomy with open abdominal wall defe ct with vacuum dressing in place. There are there are multiple loops of distal s mall bowel that extend from the peritoneal cavity into the abdominal wal l defect, with mucosal wall thickening and associated mesenteric stranding and fluid and mucosal wall thickening of the small bowel. There is also pneumatosis, within some of the loops of bowel just proximal to and extending into the abdom inal wall defect, for example, series 14 image 111. There is adjacent mesenteric venous gas, series 12 image 691 and series 13 image 79. No portal venous gas . No free air. Abdominal wall: Abdominal wall defect wi th vacuum dressing in place. Urinary Bladder: Completely decompressed with Zheng in place. Reproductive organs: Absent. No adnexal masses. Osseous structures: Advanced degenerativ e changes of the bilateral hip joints, left greater than right. Multilevel flow ing anterior disc osteophytes at the lower thoracic spine. IMPRESSION Large ventral abdominal wall defect with open abdominal wound with evidence of ischemia within the herniated loops of s mall bowel within and abutting abdominal wall. This represents a change from the prelim inary report.? Changes and final impression discussed w [facility] Dr. Kendra Schreiber by Dr. Varun Ang at 8:05 AM on 01/07/2019. I have personally reviewed the image(s) and the residents interpretation and agree with the findings, Brandi Reyes at 01/07/2019 8:20 AM Thank you for letting us participate in the care of this patient. For questions regarding this report, please contact e number below. Ace Henry MD IMG CT ORDERABLES (ABNORMAL) POCT Glucose (01/06/2019 5:03 PM EDT) P athologist Signature POC Glucose 266 (H) 65 - 199 [facility] mg/dL [facility] Comment: Supplemental ranges: <140 mg/dL before meals <180 mg/dL all other times of the day Specimen Anatomical Collection Method Collection Time Receive d Time (Source) Location / / Volume Laterality Blood specimen 01/06/2019 5:03 PM 019 5:03 (specimen) EDT PM EDT Sarabjit Castelan MD POINT OF CARE TEST ORDERABLE S Performing Organization Address City/State/[place] [address] (ABNORMAL) POCT Glucose (01/06/2019 4:00 PM EDT) P athologist Signature POC Glucose 249 (H) 65 - 199 [facility] mg/dL [facility] Comment: Supplemental ranges: <140 mg/dL before meals <180 mg/dL all other times of the day Specimen Anatomical Collection Method Collection Time Receive d Time (Source) Location / / Volume Laterality Blood specimen 01/06/2019 4:00 PM 019 4:00 (specimen) EDT PM EDT Sarabjit Castelan MD POINT OF CARE TEST ORDERDANTE S Performing Organization Address City/[facility]/[place] [address] (ABNORMAL) POCT Glucose (01/06/2019 2:57 PM EDT) P athologist Signature POC Glucose 251 (H) 65 - 199 [place] mg/dL [facility] Comment: Supplemental ranges: <140 mg/dL before meals <180 mg/dL all other times of the day Specimen Anatomical Collection Method Collection Time Receive d Time (Source) Location / / Volume Laterality Blood specimen 01/06/2019 2:57 PM 019 2:57 (specimen) EDT PM EDT Sarabjit Castelan MD POINT OF CARE TEST ORDERABLE S Performing Organization Address City/State/[place] [address] (ABNORMAL) POCT Glucose (01/06/2019 2:02 PM EDT) P athologist Signature POC Glucose 242 (H) 65 - 199 [place] mg/dL [facility] Comment: Supplemental ranges: <140 mg/dL before meals <180 mg/dL all other times of the day Specimen Anatomical Collection Method Collection Time Receive d Time (Source) Location / / Volume Laterality Blood specimen 01/06/2019 2:02 PM 019 2:02 (specimen) EDT PM EDT Sarabjit Castelan MD POINT OF CARE TEST ORDERABLE S Performing Organization Address City/State/ZIP Code Ph[place] [address] XR Chest PA or AP 1 view (01/06/2019 1:42 PM EDT) Anatomical Region Laterality Modality Chest N/A Digital Radiography Specimen (Source) Anatomical Location Collection Method / Collectio n Time Received Time / Laterality Volume Impressions 01/06/2019 1:49 PM EDT Right IJ line has been removed. No pneumothorax seen. Persistent left lower lobe atelectasis. Thank you for letting us participate in the care of this patient. For questions regarding this report, please contact [facility] number below. ? Electronically signed by: Pari Drummond [facility] ([phone]), at 01/06/2019 1:49 PM Narrative 01/06/2019 1:49 PM EDT EXAMINATION: XR CHEST PA OR AP 1 VIEW CLINICAL HISTORY: transducer not drawing , check for placement TECHNIQUE: Portable AP chest radiograph on ??01/06/2019 at 1340 hours per COMPARISON: 01/05/2019 at 0445 hours. FINDINGS: PA catheter has been removed. Right IJ sheath remains in place. Endotracheal tube 3.5 cm above tod. E nteric tube extends below the inferior margin of this radiograph. The left lung base is incompletely imaged, with persistent retrocardiac airless lung com patible with lower lobe atelectasis and configuration of the left upper lobe sug gests compensatory hyper expansion. Partial right lower lobe atelectasis wit h or without small effusion is suggested. Unchanged cardiac silhouette. Procedure Note Pair Drummond MD - 01/06/2019Formatt ing of this note might be different from the original. EXAMINATION: XR CHEST PA OR AP 1 VIEW CLINICAL HISTORY: transducer not drawing , check for placement TECHNIQUE: Portable AP chest radiograph on 01/06/2019 at 1340 hours per COMPARISON: 01/05/2019 at 0445 hours. FINDINGS: PA catheter has been removed. Right IJ sheath remains in place. Endotracheal tube 3.5 cm above tod. E nteric tube extends below the inferior margin of this radiograph. The left lung base is incompletely imaged, with persistent retrocardiac airless lung com patible with lower lobe atelectasis and configuration of the left upper lobe sug gests compensatory hyper expansion. Partial right lower lobe atelectasis wit h or without small effusion is suggested. Unchanged cardiac silhouette. IMPRESSION Right IJ line has been removed. No pneum othorax seen. Persistent left lower lobe atelectasis. Thank you for letting us participate in the care of this patient. For questions regarding this report, please contact e number below. Electronically signed by: Pari Drummond, [facility] ([phone]), at 01/06/2019 1:49 PM Sarabjit Castelan MD IMG DX ORDERABLES (ABNORMAL) POCT Glucose (01/06/2019 12:57 PM EDT) athologist Signature POC Glucose 254 (H) 65 - 199 [facility] mg/dL [facility] Comment: Supplemental ranges: <140 mg/dL before meals <180 mg/dL all other times of the day Specimen Anatomical Collection Method Collection Time Receive d Time (Source) Location / / Volume Laterality Blood specimen 01/06/2019 12:57 9 (specimen) PM EDT 12:57 PM EDT Sarabjit Castelan MD POINT OF CARE TEST ORDERABLE S Performing Organization Address City/State/ZIP [place] [address] (ABNORMAL) Differential, Automated (01/06/2019 12:55 PM EDT) Patholo gist Method Time Signature Neutrophils % 71.4 % [facility] Neutr Abs (ANC) 8.29 (H) 1.70 - [facility] 6.10 [facility] x10(3)/[facility] LABORATORY Lymphocytes % 19.1 % [facility] Lymphocytes Abs 2.2 0.9 - 3.2 [facility] x10(3)/[facility] LABORATORY Monocytes % 8.0 % [facility] Monocyte Abs 0.9 0.3 - 0.9 [facility] x10(3)/[facility] LABORATORY Eosinophils % 0.9 % [facility] Eosinophils Abs 0.1 0.0 - 0.4 [facility] x10(3)/[facility] LABORATORY Basophils % 0.3 % [facility] Basophils Abs 0.0 0.0 - 0.1 [facility] x10(3)/[facility] LABORATORY Immature Gran % 0.30 % [facility] Comment: Immature granulocytes(IG's)percentage an d absolute count will include metamyelocytes, myelocytes, and promyelo cytes. Blood smears from CBCs yielding IG's will be scanned manually for concor dance. If this scan disagrees with the automated IG or if promyelocytes are not ed, a manual differential will be performed. Irina Gran Abs 0.04 0.00 - 0.04 x10(3)/[facility] LABORATORY Specimen Anatomical Collection Method Collection Time Receive d Time (Source) Location / / Volume Laterality Blood specimen 01/06/2019 12:55 9 1:11 (specimen) PM EDT PM EDT Resulting Agency Comment Spec In Lab Severino Larson MD HEMATOLOGY ORDERABLES Performing Organization Address City/State/ZIP [place] [address] (ABNORMAL) Hemogram (01/06/2019 12:55 PM EDT) [facility] Time Signature WBC 11.6 (H) 4.0 - 9.5 [facility] x10(3)/[facility] LABORATORY RBC 3.67 (L) 4.00 - [place] 5.21 [facility] x10(6)/[facility] LABORATORY Hemoglobin 10.9 (L) 11.7 - [place] 15.5 gm/dL [facility] Hematocrit 34.4 (L) 35.7 - [place] 45.8 % [facility] MCV 93.7 82.6 - [facility] 94[facility]4 [facility] LABORATORY MCH 29.7 27.1 - [place] 32.0 pg [facility] MCHC 31.7 31.7 - [place] 35.0 gm/dL [facility] Platelets 150 145 - 357 [facility] x10(3)/[facility] LABORATORY RDWSD 45.4 37.0 - [place] 46.0 [facility] LABORATORY RDWCV 13.2 11.5 - [facility] 14.1 % [facility] MPV 10.7 7.6 - 12.9 [place] [facility] LABORATORY nRBC % Auto 0.0 % [facility] nRBC Abs Auto 0.000 0.000 - [place] 0.000 [facility] x10(3)/[facility] LABORATORY Specimen Anatomical Collection Method Collection Time Receive d Time (Source) Location / / Volume Laterality Blood specimen 01/06/2019 12:55 9 1:11 (specimen) PM EDT PM EDT Resulting Agency Comment Spec In Lab Severino Larson MD HEMATOLOGY ORDERABLES Performing Organization Address City/State/ZIP [place] [address] Phosphorus (01/06/2019 12:55 PM EDT) P athologist Signature Phosphorus 2.5 2.5 - 4.5 [place] mg/dL [facility] Specimen Anatomical Collection Method Collection Time Receive d Time (Source) Location / / Volume Laterality Blood specimen 01/06/2019 12:55 9 1:11 (specimen) PM EDT PM EDT Resulting Agency Comment Spec In Lab Ace Henry MD CHEMISTRY ORDERABLES Performing Organization Address City/State/ZIP [place] [address] [facility] [address] Magnesium (01/06/2019 12:55 PM EDT) P athologist Signature Magnesium 0.79 0.69 - 1.07 [facility] mmol/L [facility] Specimen Anatomical Collection Method Collection Time Receive d Time (Source) Location / / Volume Laterality Blood specimen 01/06/2019 12:55 9 1:11 (specimen) PM EDT PM EDT Resulting Agency Comment Spec In Lab Ace Henry MD CHEMISTRY ORDERABLES Performing Organization Address City/State/ZIP [place] [address] [facility] [address] (ABNORMAL) Basic Metabolic Panel (non-fasting) (01/06/2019 12:55 PM EDT) athologist Signature Glucose Lvl 269 (H) 65 - 199 [facility] mg/dL [facility] Comment: Diabetes: >=200 mg/dL plus symp toms BUN 18 8 - 18 mg/dL [facility]ORY Creatinine 0.70 0.70 - 1.20 mg/dL [facility] LAB[facility]ORY Sodium 144 135 - 145 mmol/L [facility] Potassium 3.9 3.5 - 5.0 mmol/L [facility] Comment: Please note: ??Patients with WBC >100,00 0 may have falsely elevated Potassium levels. ??For accurate Potassium quantif ication in these patients send serum separator tube (gold top) for subsequent determinations. ??Contact the Clinical Chemistry Laboratory if there are any qu estions. Chloride 108 (H) 98 - 107 mmol/L [facility] CO2 21 (L) 22 - 31 mmol/L [facility] Anion Gap 15 5 - 15 mmol/L [facility] Calcium 9.7 8.5 - 10.5 mg/dL [facility] Estimated GFR 95 >=60 mL/min/1.73 m?? [facility] Comment: The eGFR was calculated using the CKD-EP I equation. As with all creatinine based estimates of kidney function, eGFR values calculated with the CKD-EPI equation are not accurate in patients wi th acute kidney failure, extremes of body mass or the acutely ill. http://[employer]/[facility]ULSAnkf eGFR 110 >=60 mL/min/1.73 m?? [facility] Comment: The eGFR was calculated using the CKD-EP I equation. As with all creatinine based estimates of kidney function, eGFR values calculated with the CKD-EPI equation are not accurate in patients wi th acute kidney failure, extremes of body mass or the acutely ill. http://[employer]/[facility]ULSAnkf Specimen Anatomical Collection Method Collection Time Receive d Time (Source) Location / / Volume Laterality Blood specimen 01/06/2019 12:55 9 1:11 (specimen) PM EDT PM EDT Resulting Agency Comment Spec In Lab Ace Henry MD CHEMISTRY ORDERABLES Performing Organization Address City/[facility]/[place] [address] (ABNORMAL) POCT Glucose (01/06/2019 12:00 PM EDT) P athologist Signature POC Glucose 230 (H) 65 - 199 [facility] Comment: Supplemental ranges: <140 mg/dL before meals <180 mg/dL all other times of the day Specimen Anatomical Collection Method Collection Time Receive d Time (Source) Location / / Volume Laterality Blood specimen 01/06/2019 12:00 9 (specimen) PM EDT 12:00 PM EDT Sarabjit Castelan MD POINT OF CARE TEST ORDERABLE S Performing Organization Address City/[facility]/[place] [address] (ABNORMAL) POCT Glucose (01/06/2019 11:31 AM EDT) P athologist Signature POC Glucose 202 (H) 65 - 199 [facility]/dL [facility] Comment: Supplemental ranges: <140 mg/dL before meals <180 mg/dL all other times of the day Specimen Anatomical Collection Method Collection Time Receive d Time (Source) Location / / Volume Laterality Blood specimen 01/06/2019 11:31 9 (specimen) AM EDT 11:31 AM EDT Sarabjit Castelan MD POINT OF CARE TEST ORDERABLE S Performing Organization Address City/State/ZIP [place] [address] US Retroperitoneal Complete (01/06/2019 11:29 AM EDT) Anatomical Region Laterality Modality Abdomen Ultrasound Specimen (Source) Anatomical Collection Method Collection Time Re ceived Time Location / / Volume Laterality 01/06/2019 11:28 AM EDT Impressions 01/06/2019 12:07 PM EDT Normal renal ultrasound. Specifically, in no evidence of stones or obstruction on either side. Thank you for letting us participate in the care of this patient. For questions regarding this report, please contact t [facility] number below. Electronically signed by: Sumanth treviño [facility] ([phone]), at 11:59 AM ? Sumanth Pitts, Staff Physician Electronically Signed Final Report ?? 12:06 pm Narrative 01/06/2019 12:07 PM EDT Renal ?(Signed Final 01/06/2019 12:06 pm) PATIENT INFO: ID #: ? [id number] ?: ??[birth year] (58 yrs) Name: ? BLOSSOM Ray ? Visit Date: 01/06/2019 11:28 am ? TARA PERFORMED BY: Performed By: ? Eulalio Beltran RDMS: ?Gisselle RUIZ, Maurice Ferro. Referred By: ?ACE HENRY Location: ? [place] SERVICE(S) PROVIDED: ??URETRO - Retroperitoneal Complete - I [id number] ? [id number] INDICATIONS: ??pt admitted for mixed shock has histo ry of ??neprolithiasis with hydronephrosis an d ??urosepsis, looking for new stones na ??dpossible source of infection RIGHT KIDNEY: Size (cm) ?L: ??13.7 Cortical Thickness: ?Normal Cortical Echogenicity: ?? Normal Hydronephrosis: ?No sonogr aphic evidence Comment: ?No stones seen LEFT KIDNEY: Size (cm) ?L: ??13.1 Cortical Thickness: ?Normal Cortical Echogenicity: ?? Normal Hydronephrosis: ?No sonogr aphic evidence Comment: ?No stones seen URINARY BLADDER: Comment: ?Not distended. ??Marce barber theter present Procedure Note Sumanth Pitts MD - 01/06/2019Format ting of this note might be different from the original. Renal (Signed Final 01/06/2019 12:06 pm ) PATIENT INFO: ID #: [id number] : [birth year] (58 y rs) Name: BLOSSOM Ray Visit Date: 01/06/2019 11:28 am TARA PERFORMED BY: Performed By: Eulalio Beltran RDMS Attending: Sumanth Pitts MD Referred By: ACE HENRY Location: [place] SERVICE(S) PROVIDED: URETRO - Retroperitoneal Complete - [facility] [id number] INDICATIONS: pt admitted for mixed shock has history of neprolithiasis with hydronephrosis and urosepsis, looking for new stones na dpossible source of infection RIGHT KIDNEY: Size (cm) L: 13.7 Cortical Thickness: Normal Cortical Echogenicity: Normal Hydronephrosis: No sonographic evidence Comment: No stones seen LEFT KIDNEY: Size (cm) L: 13.1 Cortical Thickness: Normal Cortical Echogenicity: Normal Hydronephrosis: No sonographic evidence Comment: No stones seen URINARY BLADDER: Comment: Not distended. Zheng catheter present IMPRESSION Normal renal ultrasound. Specifically, in no evidence of stones or obstruction on either side. Thank you for letting us participate in the care of this patient. For questions regarding this report, please contact t mychal number below. Electronically signed by: Sumanth treviño [facility] [place] ([phone]), at 11:59 AM Sumanth Pitts, Staff Physician Electronically Signed Final Report 01/06 12:06 pm Ace Henry MD [facility] GEN ORDERABLES POCT Glucose (01/06/2019 10:10 AM EDT) athologist Signature POC Glucose 197 65 - 199 [facility] mg/dL [facility] Comment: Supplemental ranges: <140 mg/dL before meals <180 mg/dL all other times of the day Specimen Anatomical Collection Method Collection Time Receive d Time (Source) Location / / Volume Laterality Blood specimen 01/06/2019 10:10 9 (specimen) AM EDT 10:10 AM EDT Ace Henry MD POINT OF CARE TEST ORDERABLE S Performing Organization Address City/State/[place] [address] POCT Glucose (01/06/2019 8:51 AM EDT) athologist Signature POC Glucose 185 65 - 199 [place] mg/dL [facility] Comment: Supplemental ranges: <140 mg/dL before meals <180 mg/dL all other times of the day Specimen Anatomical Collection Method Collection Time Receive d Time (Source) Location / / Volume Laterality Blood specimen 01/06/2019 8:51 AM 019 8:51 (specimen) EDT AM EDT Ace Henry MD POINT OF CARE TEST ORDERABLE S Performing Organization Address City/State/[place] [address] POCT Glucose (01/06/2019 8:01 AM EDT) athologist Signature POC Glucose 187 65 - 199 [facility] mg/dL [facility] Comment: Supplemental ranges: <140 mg/dL before meals <180 mg/dL all other times of the day Specimen Anatomical Collection Method Collection Time Receive d Time (Source) Location / / Volume Laterality Blood specimen 01/06/2019 8:01 AM 019 8:01 (specimen) EDT AM EDT Ace Henry MD POINT OF CARE TEST ORDERABLE S Performing Organization Address City/State/[place] [address] POCT Glucose (01/06/2019 7:04 AM EDT) athologist Signature POC Glucose 192 65 - 199 [place] mg/dL [facility] Comment: Supplemental ranges: <140 mg/dL before meals <180 mg/dL all other times of the day Specimen Anatomical Collection Method Collection Time Receive d Time (Source) Location / / Volume Laterality Blood specimen 01/06/2019 7:04 AM 019 7:04 (specimen) EDT AM EDT Ace Henry MD POINT OF CARE TEST ORDERABLE S Performing Organization Address City/[facility]/ZIP Code Phon e Number [address] POCT Glucose (01/06/2019 5:58 AM EDT) athologist Signature POC Glucose 164 65 - 199 [place] mg/dL [facility] Comment: Supplemental ranges: <140 mg/dL before meals <180 mg/dL all other times of the day Specimen Anatomical Collection Method Collection Time Receive d Time (Source) Location / / Volume Laterality Blood specimen 01/06/2019 5:58 AM 019 5:58 (specimen) EDT AM EDT Ace Henry MD POINT OF CARE TEST ORDERABLE S Performing Organization Address City/[facility]/[place] [address] POCT Glucose (01/06/2019 5:17 AM EDT) athologist Signature POC Glucose 132 65 - 199 [place] mg/dL [facility] Comment: Supplemental ranges: <140 mg/dL before meals <180 mg/dL all other times of the day Specimen Anatomical Collection Method Collection Time Receive d Time (Source) Location / / Volume Laterality Blood specimen 01/06/2019 5:17 AM 019 5:17 (specimen) EDT AM EDT Ace Henry MD POINT OF CARE TEST ORDERABLE S Performing Organization Address City/State/ZIP [place] [address] (ABNORMAL) Differential, Automated (01/06/2019 4:20 AM EDT) [facility] Method Time Signature Neutrophils % 67.8 % [facility] Neutr Abs (ANC) 9.94 (H) 1.70 - [facility] 6.10 [facility] x10(3)/[facility] LABORATORY Lymphocytes % 21.5 % [facility] Lymphocytes Abs 3.2 0.9 - 3.2 [facility] x10(3)/[facility] LABORATORY Monocytes % 9.7 % [facility] Monocyte Abs 1.4 (H) 0.3 - 0.9 [facility] x10(3)/[facility] LABORATORY Eosinophils % 0.2 % [facility] Eosinophils Abs 0.0 0.0 - 0.4 [facility] x10(3)/[facility] LABORATORY Basophils % 0.3 % [facility] Basophils Abs 0.0 0.0 - 0.1 [facility] x10(3)/[facility] LABORATORY Immature Gran % 0.50 % [facility] Comment: Immature granulocytes(IG's)percentage an d absolute count will include metamyelocytes, myelocytes, and promyelo cytes. Blood smears from CBCs yielding IG's will be scanned manually for concor dance. If this scan disagrees with the automated IG or if promyelocytes are not ed, a manual differential will be performed. Irina Gran Abs 0.07 (H) 0.00 - 0.04 x10(3)/[facility] LABORATORY Specimen Anatomical Collection Method Collection Time Receive d Time (Source) Location / / Volume Laterality Blood specimen 01/06/2019 4:20 AM 019 4:35 (specimen) EDT AM EDT Resulting Agency Comment Spec In Lab Severino Larson MD HEMATOLOGY ORDERABLES Performing Organization Address City/[facility]/ZIP [place] [address] (ABNORMAL) Hemogram (01/06/2019 4:20 AM EDT) Analysis Performed At Patho logist Time Signature WBC 14.6 (H) 4.0 - 9.5 [place] x10(3)/[facility] LABORATORY RBC 3.79 (L) 4.00 - [place] 5.21 [facility] x10(6)/[facility] LABORATORY Hemoglobin 11.5 (L) 11.7 - [facility] 15.5 gm/dL [facility] Hematocrit 35.5 (L) 35.7 - [place] 45.8 % [facility] MCV 93.7 82.6 - [facility] 94.4 [facility] LABORATORY MCH 30.3 27.1 - [place] 32.0 pg [facility] MCHC 32.4 31.7 - [place] 35.0 gm/dL [facility] Platelets 162 145 - 357 [facility] x10(3)/[facility] LABORATORY RDWSD 45.1 37.0 - [facility] 46.0 [facility] LABORATORY RDWCV 13.2 11.5 - [place] 14.1 % [facility] LAB[facility]ATORY MPV 10.4 7.6 - 12.9 [facility] nRBC % Auto 0.0 % [facility] nRBC Abs Auto 0.000 0.000 - [place] 0.000 [facility] x10(3)/[facility] LABORATORY Specimen Anatomical Collection Method Collection Time Receive d Time (Source) Location / / Volume Laterality Blood specimen 01/06/2019 4:20 AM 019 4:35 (specimen) EDT AM EDT Resulting Agency Comment Spec In Lab Severino Larson MD HEMATOLOGY ORDERABLES Performing Organization Address City/State/ZIP [place] [address] (ABNORMAL) Basic Metabolic Panel (non-fasting) (01/06/2019 4:20 AM EDT) P athologist Signature Glucose Lvl 155 65 - 199 [facility] mg/dL [facility] Comment: Diabetes: >=200 mg/dL plus symp toms BUN 17 8 - 18 mg/dL [facility]ORATORY Creatinine 0.78 0.70 - 1.20 mg/dL [facility] Sodium 143 135 - 145 mmol/L [facility] Potassium 3.6 3.5 - 5.0 mmol/L [facility] Comment: delta result rechecked-KLA Please note: ??Patients with WBC >100,00 0 may have falsely elevated Potassium levels. ??For accurate Potassium quantif ication in these patients send serum separator tube (gold top) for subsequent determinations. ??Contact the Clinical Chemistry Laboratory if there are any qu estions. Chloride 111 (H) 98 - 107 mmol/L [facility] CO2 22 22 - 31 mmol/L [facility] Anion Gap 10 5 - 15 mmol/L [facility] Calcium 9.8 8.5 - 10.5 mg/dL [facility] Estimated GFR 83 >=60 mL/min/1.73 m?? [facility] Comment: The eGFR was calculated using the CKD-EP I equation. As with all creatinine based estimates of kidney function, eGFR values calculated with the CKD-EPI equation are not accurate in patients wi th acute kidney failure, extremes of body mass or the acutely ill. http://[employer]/[facility]Ankf eGFR 96 >=60 mL/min/1.73 m?? [facility] Comment: The eGFR was calculated using the CKD-EP I equation. As with all creatinine based estimates of kidney function, eGFR values calculated with the CKD-EPI equation are not accurate in patients wi th acute kidney failure, extremes of body mass or the acutely ill. http://[employer]/[facility]kf Specimen Anatomical Collection Method Collection Time Receive d Time (Source) Location / / Volume Laterality Blood specimen 01/06/2019 4:20 AM 019 4:35 (specimen) EDT AM EDT Resulting Agency Comment Spec In Lab Ace Henry MD CHEMISTRY ORDERABLES Performing Organization Address City/State/ZIP [place] [address] Phosphorus (01/06/2019 4:20 AM EDT) athologist Signature Phosphorus 2.5 2.5 - 4.5 [facility] Comment: delta result rechecked-KLA Specimen Anatomical Collection Method Collection Time Receive d Time (Source) Location / / Volume Laterality Blood specimen 01/06/2019 4:20 AM 019 4:35 (specimen) EDT AM EDT Resulting Agency Comment Spec In Lab Ace Henry MD CHEMISTRY ORDERABLES Performing Organization Address City/State/ZIP Code Phon e Number [address] Magnesium (01/06/2019 4:20 AM EDT) athologist Signature Magnesium 0.69 0.69 - 1.07 [facility]/L [facility] LABOR[facility]ORY Specimen Anatomical Collection Method Collection Time Receive d Time (Source) Location / / Volume Laterality Blood specimen 01/06/2019 4:20 AM 019 4:35 (specimen) EDT AM EDT Resulting Agency Comment Spec In Lab Ace Henry MD CHEMISTRY ORDERABLES Performing Organization Address City/[facility]/ZIP Code Phon e Number [address] POCT Glucose (01/06/2019 4:00 AM EDT) athologist Signature POC Glucose 150 65 - 199 [facility] mg/dL [facility] Comment: Supplemental ranges: <140 mg/dL before meals <180 mg/dL all other times of the day Specimen Anatomical Collection Method Collection Time Receive d Time (Source) Location / / Volume Laterality Blood specimen 01/06/2019 4:00 AM 019 4:00 (specimen) EDT AM EDT Ace Henry MD POINT OF CARE TEST ORDERABLE S Performing Organization Address City/[facility]/[place] [address] POCT Glucose (01/06/2019 2:59 AM EDT) athologist Signature POC Glucose 145 65 - 199 [place] mg/dL [facility] Comment: Supplemental ranges: <140 mg/dL before meals <180 mg/dL all other times of the day Specimen Anatomical Collection Method Collection Time Receive d Time (Source) Location / / Volume Laterality Blood specimen 01/06/2019 2:59 AM 019 2:59 (specimen) EDT AM EDT Ace Henry MD POINT OF CARE TEST ORDERABLE S Performing Organization Address City/State/ZIP Code Phon e Number [address] POCT Glucose (01/06/2019 1:50 AM EDT) athologist Signature POC Glucose 168 65 - 199 [place] mg/dL [facility] Comment: Supplemental ranges: <140 mg/dL before meals <180 mg/dL all other times of the day Specimen Anatomical Collection Method Collection Time Receive d Time (Source) Location / / Volume Laterality Blood specimen 01/06/2019 1:50 AM 019 1:50 (specimen) EDT AM EDT Ace Henry MD POINT OF CARE TEST ORDERABLE S Performing Organization Address City/State/ZIP Code Phon e Number [address] POCT Glucose (01/06/2019 1:07 AM EDT) athologist Signature POC Glucose 166 65 - 199 [place] mg/dL [facility] Comment: Supplemental ranges: <140 mg/dL before meals <180 mg/dL all other times of the day Specimen Anatomical Collection Method Collection Time Receive d Time (Source) Location / / Volume Laterality Blood specimen 01/06/2019 1:07 AM 019 1:07 (specimen) EDT AM EDT Ace Henry MD POINT OF CARE TEST ORDERABLE S Performing Organization Address City/State/ZIP Code Phon e Number [address] POCT Glucose (01/05/2019 11:55 PM EDT) athologist Signature POC Glucose 171 65 - 199 [place] mg/dL [facility] Comment: Supplemental ranges: <140 mg/dL before meals <180 mg/dL all other times of the day Specimen Anatomical Collection Method Collection Time Receive d Time (Source) Location / / Volume Laterality Blood specimen 01/05/2019 11:55 9 (specimen) PM EDT 11:55 PM EDT Ace Henry MD POINT OF CARE TEST ORDERABLE S Performing Organization Address City/[facility]/ZIP Code Phon e Number [address] POCT Glucose (01/05/2019 10:55 PM EDT) P athologist Signature POC Glucose 181 65 - 199 [place] mg/dL [facility] Comment: Supplemental ranges: <140 mg/dL before meals <180 mg/dL all other times of the day Specimen Anatomical Collection Method Collection Time Receive d Time (Source) Location / / Volume Laterality Blood specimen 01/05/2019 10:55 9 (specimen) PM EDT 10:55 PM EDT Ace Henry MD POINT OF CARE TEST ORDERABLE S Performing Organization Address City/State/ZIP Code Phon e Number [address] POCT Glucose (01/05/2019 10:08 PM EDT) athologist Signature POC Glucose 161 65 - 199 [place] mg/dL [facility] Comment: Supplemental ranges: <140 mg/dL before meals <180 mg/dL all other times of the day Specimen Anatomical Collection Method Collection Time Receive d Time (Source) Location / / Volume Laterality Blood specimen 01/05/2019 10:08 9 (specimen) PM EDT 10:08 PM EDT Ace Henry MD POINT OF CARE TEST ORDERABLE S Performing Organization Address City/State/ZIP Code Phon e Number [address] POCT Glucose (01/05/2019 9:12 PM EDT) athologist Signature POC Glucose 176 65 - 199 [place] mg/dL [facility] Comment: Supplemental ranges: <140 mg/dL before meals <180 mg/dL all other times of the day Specimen Anatomical Collection Method Collection Time Receive d Time (Source) Location / / Volume Laterality Blood specimen 01/05/2019 9:12 PM 019 9:12 (specimen) EDT PM EDT Ace Henry MD POINT OF CARE TEST ORDERABLE S Performing Organization Address City/State/ZIP Code Phon e Number [address] POCT Glucose (01/05/2019 8:11 PM EDT) athologist Signature POC Glucose 155 65 - 199 [place] mg/dL [facility] Comment: Supplemental ranges: <140 mg/dL before meals <180 mg/dL all other times of the day Specimen Anatomical Collection Method Collection Time Receive d Time (Source) Location / / Volume Laterality Blood specimen 01/05/2019 8:11 PM 019 8:11 (specimen) EDT PM EDT Ace Henry MD POINT OF CARE TEST ORDERABLE S Performing Organization Address City/State/ZIP Code Phon e Number [address] POCT Glucose (01/05/2019 7:04 PM EDT) athologist Signature POC Glucose 170 65 - 199 [place] mg/dL [facility] Comment: Supplemental ranges: <140 mg/dL before meals <180 mg/dL all other times of the day Specimen Anatomical Collection Method Collection Time Receive d Time (Source) Location / / Volume Laterality Blood specimen 01/05/2019 7:04 PM 019 7:04 (specimen) EDT PM EDT Ace Henry MD POINT OF CARE TEST ORDERABLE S Performing Organization Address City/State/ZIP Code Phon e Number [address] POCT Glucose (01/05/2019 5:34 PM EDT) athologist Signature POC Glucose 186 65 - 199 [place] mg/dL [facility] Comment: Supplemental ranges: <140 mg/dL before meals <180 mg/dL all other times of the day Specimen Anatomical Collection Method Collection Time Receive d Time (Source) Location / / Volume Laterality Blood specimen 01/05/2019 5:34 PM 019 5:34 (specimen) EDT PM EDT Ace Henry MD POINT OF CARE TEST ORDERABLE S Performing Organization Address City/State/ZIP [place] [address] (ABNORMAL) Differential, Automated (01/05/2019 5:10 PM EDT) [facility] Method Time Signature Neutrophils % 64.4 % [facility] LABORATORY Neutr Abs (ANC) 9.02 (H) 1.70 - [facility] 6.10 [facility] x10(3)/[facility] LABORATORY Lymphocytes % 25.9 % [facility] LABORATORY Lymphocytes Abs 3.6 (H) 0.9 - 3.2 [facility] x10(3)/[facility] LABORATORY Monocytes % 8.9 % [facility] LABORATORY Monocyte Abs 1.2 (H) 0.3 - 0.9 [facility] x10(3)/[facility] LABORATORY Eosinophils % 0.1 % [facility] LABORATORY Eosinophils Abs 0.0 0.0 - 0.4 [facility] x10(3)/[facility] LABORATORY Basophils % 0.2 % [facility] LABORATORY Basophils Abs 0.0 0.0 - 0.1 [facility] x10(3)/[facility] LABORATORY Immature Gran % 0.50 % [facility] LABORATORY Comment: Immature granulocytes(IG's)percentage an d absolute count will include metamyelocytes, myelocytes, and promyelo cytes. Blood smears from CBCs yielding IG's will be scanned manually for concor dance. If this scan disagrees with the automated IG or if promyelocytes are not ed, a manual differential will be performed. Irina Gran Abs 0.07 (H) 0.00 - 0.04 x10(3)/[facility] LABORATORY Specimen Anatomical Collection Method Collection Time Receive d Time (Source) Location / / Volume Laterality Blood specimen 01/05/2019 5:10 PM 019 5:21 (specimen) EDT PM EDT Resulting Agency Comment Spec In Lab Severino Larson MD HEMATOLOGY ORDERABLES Performing Organization Address City/[facility]/[place] [address] (ABNORMAL) Hemogram (01/05/2019 5:10 PM EDT) Analysis Performed At Patho logist Time Signature WBC 14.0 (H) 4.0 - 9.5 [facility] [place] x10(3)/[facility] LABORATORY RBC 3.87 (L) 4.00 - [place] 5.21 [facility] x10(6)/[facility] LABORATORY Hemoglobin 11.8 11.7 - [place] 15.5 gm/dL [facility] LABORATORY Hematocrit 36.1 35.7 - [place] 45.8 % [facility] LABORATORY MCV 93.3 82.6 - [facility] 94.4 [facility] LABORATORY MCH 30.5 27.1 - [email or web address] 32.0 pg [facility] LABORATORY MCHC 32.7 31.7 - [place] 35.0 gm/dL [facility] LABORATORY Platelets 174 145 - 357 [facility] x10(3)/[facility] LABORATORY RDWSD 44.6 37.0 - [facility] 46.0 [facility] LABORATORY RDWCV 13.1 11.5 - [place] 14.1 % [facility] LABORATORY MPV 10.3 7.6 - 12.9 [facility] LABORATORY nRBC % Auto 0.0 % [facility] LABORATORY nRBC Abs Auto 0.000 0.000 - [facility] 0.000 [facility] x10(3)/[facility] LABORATORY Specimen Anatomical Collection Method Collection Time Receive d Time (Source) Location / / Volume Laterality Blood specimen 01/05/2019 5:10 PM 019 5:21 (specimen) EDT PM EDT Resulting Agency Comment Spec In Lab Severino Larson MD HEMATOLOGY ORDERABLES Performing Organization Address City/[facility]/[place] [address] POCT Glucose (01/05/2019 5:09 PM EDT) P athologist Signature POC Glucose 196 65 - 199 [facility] mg/dL [facility] LABOR[facility] Comment: Supplemental ranges: <140 mg/dL before meals <180 mg/dL all other times of the day Specimen Anatomical Collection Method Collection Time Receive d Time (Source) Location / / Volume Laterality Blood specimen 01/05/2019 5:09 PM 019 5:09 (specimen) EDT PM EDT Ace Henry MD POINT OF CARE TEST ORDERABLE S Performing Organization Address City/State/ZIP [place] [address] (ABNORMAL) BLOOD GAS 2 ARTERIAL (01/05/2019 4:26 PM EDT) Analysis Performed At Patho logist Time Signature pH Art 7.45 7.35 - [facility] 7.45 [facility] LABORATORY pCO2 Art 29 (L) 35 - 45 [facility] LABORATORY pO2 Art 128 (H) 85 - 104 [facility] LABORATORY HCO3 Art 19.5 (L) 20.0 - [facility] 26.0 [facility] mmol/L [facility] LABORATORY BE Art -4.5 (L) -3.0 - 3.0 [facility] mmol/L [facility] LABORATORY Hgb Blood Gas 12.7 11.7 - [facility] 15.5 gm/dL [facility] LABORATORY O2HB Art 97.5 (H) 94.0 - [facility] 97.0 % [facility] LABORATORY COHB Art 0.2 % [facility] LABORATORY Comment: Nonsmokers: 0.5-1.5% COHB Smokers: Variable, but usually less than 10% Toxic: 20-30% COHB Lethal: Greater than 60% COHB METHB Art 0.4 <=1.5 % [facility] LABORATORY Na Whole Blood 138 135 - 145 mmol/L [facility] LABORAT[facility] K Whole Blood 4.4 3.5 - 5.0 mmol/L [facility] LAB[facility] Comment: Please note: Patients with WBC >100,000 may have falsely elevated Potassium levels. Contact the Clinical Chemistry L aboratory if there are any questions. ICa Whole Blood 1.34 (H) 1.15 - 1.33 mmol/L [facility] LABORATORY Comment: Note: ??Total bilirubin higher than 20 m g/dL may lead to falsely low ionized calcium. CL Whole Blood 109 (H) 98 - 107 mmol/L [facility] LABORATORY Gluc Whole Bld 195 65 - 199 mg/dL [facility] LABOR[facility] Comment: Diabetes: >=200 mg/dL plus symp toms. Lactate WB 2.8 (H) 0.5 - 2.2 mmol/L [facility] LABORATORY FIO2 Art 40 % [facility] LABORATORY PF Ratio Art 320 [facility] LABORATORY Specimen Anatomical Collection Method Collection Time Receive d Time (Source) Location / / Volume Laterality Blood specimen 01/05/2019 4:26 PM 019 4:26 (specimen) EDT PM EDT Ace Henry MD CHEMISTRY ORDERABLES Performing Organization Address City/[facility]/[place] [address] (ABNORMAL) Phosphorus (01/05/2019 4:15 PM EDT) athologist Signature Phosphorus 1.4 2.5 - 4.5 [facility] ([facility] mg/dL [facility] Comment: Called by: , Read back by: Tyree Fernandez, Date/Time:01/05/19 17:53. Specimen Anatomical Collection Method Collection Time Receive d Time (Source) Location / / Volume Laterality Blood specimen Venous Draw / 01/05/2019 4:15 PM 2018 4:23 (specimen) Unknown EDT PM EDT Resulting Agency Comment Spec In Lab Severino Larson MD CHEMISTRY ORDERABLES Performing Organization Address City/State/ZIP Code Phon e Number [address] (ABNORMAL) Magnesium (01/05/2019 4:15 PM EDT) P athologist Signature Magnesium 1.25 (H) 0.69 - 1.07 [facility]/L [facility] Comment: result rechecked-sl Specimen Anatomical Collection Method Collection Time Receive d Time (Source) Location / / Volume Laterality Blood specimen Venous Draw / 01/05/2019 4:15 PM 2018 4:23 (specimen) Unknown EDT PM EDT Resulting Agency Comment Spec In Lab Severino Larson MD CHEMISTRY ORDERABLES Performing Organization Address City/State/ZIP [place] [address] (ABNORMAL) Basic Metabolic Panel (non-fasting) (01/05/2019 4:15 PM EDT) athologist Signature Glucose Lvl 194 65 - 199 [facility] mg/dL [facility] Comment: Diabetes: >=200 mg/dL plus symp toms BUN 16 8 - 18 mg/dL [facility] LABORATORY Creatinine 0.86 0.70 - 1.20 mg/dL [facility] LABOR[facility] Sodium 136 135 - 145 mmol/L [facility] LABORATORY Potassium 4.7 3.5 - 5.0 mmol/L [facility] LABOR[facility] Comment: Please note: ??Patients with WBC >100,00 0 may have falsely elevated Potassium levels. ??For accurate Potassium quantif ication in these patients send serum separator tube (gold top) for subsequent determinations. ??Contact the Clinical Chemistry Laboratory if there are any qu estions. Chloride 108 (H) 98 - 107 mmol/L [facility] CO2 21 (L) 22 - 31 mmol/L [facility] Anion Gap 7 5 - 15 mmol/L [facility] LABORATORY Calcium 10.1 8.5 - 10.5 mg/dL [facility] LABORATORY Estimated GFR 74 >=60 mL/min/1.73 m?? [facility] Comment: The eGFR was calculated using the CKD-EP I equation. As with all creatinine based estimates of kidney function, eGFR values calculated with the CKD-EPI equation are not accurate in patients wi th acute kidney failure, extremes of body mass or the acutely ill. http://[employer]/[facility]MCnkf eGFR 86 >=60 mL/min/1.73 m?? [facility] Comment: The eGFR was calculated using the CKD-EP I equation. As with all creatinine based estimates of kidney function, eGFR values calculated with the CKD-EPI equation are not accurate in patients wi th acute kidney failure, extremes of body mass or the acutely ill. http://[employer]/[facility]nkf Specimen Anatomical Collection Method Collection Time Receive d Time (Source) Location / / Volume Laterality Blood specimen Venous Draw / 01/05/2019 4:15 PM 2018 4:23 (specimen) Unknown EDT PM EDT Resulting Agency Comment Spec In Lab Severino Larson MD CHEMISTRY ORDERABLES Performing Organization Address City/[facility]/ZIP Code Phon e Number [address] POCT Glucose (01/05/2019 4:15 PM EDT) athologist Signature POC Glucose 176 65 - 199 [facility] mg/dL [facility] Comment: Supplemental ranges: <140 mg/dL before meals <180 mg/dL all other times of the day Specimen Anatomical Collection Method Collection Time Receive d Time (Source) Location / / Volume Laterality Blood specimen 01/05/2019 4:15 PM 019 4:15 (specimen) EDT PM EDT Ace Henry MD POINT OF CARE TEST ORDERABLE S Performing Organization Address City/[facility]/[place] [address] (ABNORMAL) Troponin (01/05/2019 4:15 PM EDT) athologist Signature Troponin-T 0.25 (H) 0.00 - [facility] 0.[facility] ng/mL [facility] Comment: The 99th percentile for Troponin T is le ss than 0.01 ng/mL, any detectable cTnT concentration using this assay should be considered elevated. According to the third universal definit ion of myocardial infarction the following criteria with a clinical prese ntation consistent with acute myocardial ischemia meets the diagnosis for a myocardial infarction (CO). Detection of a rise and/or fall of cTnT, with at least one value greater than the 99th percentile (> or = 0.01) and wi th at least one of the following ?? Symptoms of ischemia ?? New or presumed new significant ST-se gment-T wave (ST-T) changes or new left bundle branch block (LBBB) ?? Development of pathologic Q waves in the ECG ?? Imaging evidence of new loss of viabl e myocardium or new regional wall motion abnormality ?? Identification of an intracoronary th rombus by angiography or autopsy Samples for cTnT testing should be obtai mariam serially upon first assessment and again 3 to 6 hours later. If the clinica l suspicion is high and previous samples have been negative an additional sample may be indicated. Reference: Third [place] Definition of Myocardial Infarction. Journal of the [place] [employer] 2012;60:1581-98 Specimen Anatomical Collection Method Collection Time Receive d Time (Source) Location / / Volume Laterality Blood specimen 01/05/2019 4:15 PM 019 4:23 (specimen) EDT PM EDT Resulting Agency Comment Spec In Lab Ace Henry MD CHEMISTRY ORDERABLES Performing Organization Address City/[facility]/ZIP Code Phon e Number [address] POCT Glucose (01/05/2019 2:52 PM EDT) athologist Signature POC Glucose 198 65 - 199 [facility] mg/dL [facility] Comment: Supplemental ranges: <140 mg/dL before meals <180 mg/dL all other times of the day Specimen Anatomical Collection Method Collection Time Receive d Time (Source) Location / / Volume Laterality Blood specimen 01/05/2019 2:52 PM 019 2:52 (specimen) EDT PM EDT Ace Henry MD POINT OF CARE TEST ORDERABLE S Performing Organization Address City/[facility]/ZIP [facility] [place] [address] ECHOCARDIOGRAM COMPLETE W CONTRAST (01/05/2019 1:12 PM EDT) athologist Signature EF 30 [facility] Specimen (Source) Anatomical Location Collection Method / Collectio n Time Received Time / Laterality Volume 01/06/2019 Narrative [facility] - 01/06/2019 8:17 AM EDT Procedure: ?Transthoracic Echocardiogram Patient: ?TARA Ray ?(Age): 1960(58y) Med Rec#: ? [id number] ?Sex: ?F ? Site Loc: ? [facility] ?Ht / Wt: ??170(cm)/138(kg) Pt. Loc: ?ICU ? BSA: ?2.41 Study Date: ?? 01/05/2019 ?Pt. Type: Inpatient Tape: ? Referring: Hossein Chahal Reading: Juancarlos Leo ([id number]) Reading: Qamar Brooks ([id number]) Support Group Manager: Albina Logan [facility] Diagnosis: *Other cardiomyopathies (I42.8) Rhythm: ? Sinus BP: ? 123/75 SUMMARY: 1. Global left ventricular systolic func tion is moderately reduced. ??The quantitative left ventricular ejection f raction by biplane Harden's method is 30%. There are left ventricula r segmental wall motion abnormalities present, as shown in the d iagram below. 2. The right ventricle is normal in size . ??Right ventricular global systolic function is low normal. 3. There is no hemodynamically significa nt valve disease. 4. When compared with study dated 08/2018 , there has been a significant decline in LV function with new wall mot ion abnormalities. 5. See remainder of report for additiona l findings. Findings ? : Study Quality: ? Adequate Left Ventricle: ? The left ventricul ar chamber size is normal. ?Left ventricular wall thickness is normal. ?No ventricular septal defect is vi sualized. ?Global left ventricular systolic f unction is moderately reduced. ?The quantitative left ventricular ejection fraction by biplane Harden's method is 30%. ?There are left ventricular segment al wall motion abnormalities present, as shown in the diagram below. ?There is a left ventricular septal wall motion abnormality observed, possibly due to the presence of a left b undle branch block. ?Doppler assessment is consistent w ith normal left sided filling pressure. ?The ??basal inferoseptal, mid ante rolateral, and ??mid inferolateral wall segments are hypokinetic (score 2). ?The ??mid anteroseptal, mid anteri or, mid inferior, mid inferoseptal, apical septal, apical anterior, apical l ateral, and ??apical inferior wall segments are akinetic (score 3). ?Overall wallmotion score index is ??2.19 ?No thrombus is visualized within t he left ventricle. Left Atrium: ? The left atrium is no rmal in size. Right Ventricle: ? The right ventric le is normal in size. ?Right ventricular global systolic function is low normal. ?The estimated pulmonary artery sys tolic pressure is 20 mmHg.+RAP Right Atrium: ? The right atrium is normal in size. Aortic Valve: ? The aortic valve is tricuspid. ?There is no evidence of aortic maureen ve thickening. ?Systolic excursion of the aortic v alve is normal. ?There is no evidence of aortic maureen ve stenosis. ?There is no evidence of aortic reg urgitation. Mitral Valve: ? The mitral valve liza flets are mildly thickened. ?There is posterior mitral annular calcification. ?There is trace mitral regurgitatio n present. Tricuspid Valve: ? The tricuspid maureen ve appears normal in structure and function. ?There is trace tricuspid regurgita tion present. Pulmonic Valve: ? The pulmonic valve appears normal in structure and function. ?There is no evidence of pulmonic r egurgitation. Pericardium: ? The pericardium appea rs normal and there is no evidence of a pericardial effusion. Aorta: ? The aortic root is normal i n size. ?The ascending aorta is normal in s ize. Pulmonary Artery: ? The main pulmona ry artery appears normal. Venous: ? The inferior vena cava jonathan ears normal in size.pt intubated Misc: ? There is no hemodynamically significant valve disease. ?See remainder of report for additi onal findings. ?Two-dimensional echo, spectral Dop pler and color Doppler performed. ?Optison contrast (one 3 ml vial) w as used to enhance endocardial definition. Excess contrast was discarde d. Chambers 2D ?Value ?Units (Range) ? IVSd (2D) ? 1.1 ?cm ? LVPWd (2D) ?0.9 ?cm ? IVS:LVPW ratio (2D) 1.2 ?ratio ? RWT (2D) ?0.4 ?ratio ? RWT PW (2D) ? 0.4 ?ratio ? LVIDd (2D) ?5.4 ?cm ? LVIDs (2D) ?4.4 ?cm ? LVIDd (2D) index ?2.2 ?cm/m2 ? LVIDs (2D) index ?1.8 ?cm/m2 ? LV FS (2D) ?17 ? % ? EF Teichholz (2D) ?? 36 ? % ? Ao root diameter (2D3.5 ?cm (2.1 - 3.6) ? Ascending Ao ?3.4 ?cm (2 - 3.5) ? Volumes/Mass ?Value ?Units (Range) ? LA Area 4 CH ?15.3 ? cm2 (<21) ? RA AREA 4CH ? 11.2 ? cm2 ? LA ESV BP (MOD) inde16.5 ? ml/m2 ? LV ESV SP 4CH (MOD) 107 ?ml ? LV ESV SP 2CH (MOD) 114 ?ml ? LV EDV BP ? 159 ?ml ? LV ESV BP ? 112 ?ml ? LV EDV BP index ? 66 ? ml/m2 ? LV ESV BP index ? 46.5 ? ml/m2 ? BP EF (MOD) ? 30 ? % ? LV mass (2D) ?211.4 ?g ? LV mass (2D) index ??87.7 ? g/m2 ? Diastolic/Systolic Function ?Value ?Units (Range) ? MV E-wave Vmax ?0.8 ?m/sec ? MV deceleration [id number] ?msec ? MV A-wave Vmax ?0.9 ?m/sec ? MV E:A ratio ?0.9 ?ratio ? LV septal e' Vmax ?? 0.1 ?m/sec ? LV lateral e' Vmax ??0.1 ?m/sec ? LV average e' Vmax ??0.1 ?m/sec ? LV E:e' septal ratio10.4 ? ratio ? LV E:e' lateral rati7.3 ?ratio ? LV average E:e' rati8.9 ?ratio ? Tricuspid Valve ?Value ?Units (Range) ? TR Vmax ? 2.2 ?m/sec ? TR peak gradient ?20 ? mmHg ? RVSP ?20 ? mmHg ? Wall Motion: Segment Name ?Rest ? Base-Anteroseptal ?? Normal ? Base-Anterior ? Normal ? Base-Anterolateral ??Normal ? Base-Posterolateral Normal ? Base-Inferior ? Normal ? Base-Inferoseptal ?? Hypokinetic ? Mid-Anteroseptal ?Akinetic ? Mid-Anterior ?Akinetic ? Mid-Anterolateral ?? Hypokinetic ? Mid-Posterolateral ??Hypokinetic ? Mid-Inferior ?Akinetic ? Mid-Inferoseptal ?Akinetic ? [place]-Septal ? Akinetic ? [place]-Anterior ? Akinetic ? [place]-Lateral ?Akinetic ? [place]-Inferior ? Akinetic ? [place]-Tip ?Akinetic ? This report has been electronically sign ed by: _ Qamar Brooks M.D. ? 01/06/2019 08:17:04 Images reviewed and interpretation [facility]ound [facility] Procedure Note Qamar Brooks MD - 01/06/2019Format ting of this note might be different from the original. Procedure: Transthoracic Echocardiogram Patient: TARA Ray (Age): (58y) Med Rec#: [id number] Sex: F Site Loc: [facility] Ht / Wt: 170(cm)/138(kg) Pt. Loc: ICU BSA: 2.41 Study Date: 01/05/2019 Pt. Type: Inpatie nt Tape: Referring: Hossein Chahal Reading: Juancarlos Leo ([id number]) Reading: Cecilia Qamar Hermilo ([id number]) Support Group Manager: Albina Logan [facility] Diagnosis: *Other cardiomyopathies (I42.8) Rhythm: Sinus BP: 123/75 SUMMARY: 1. Global left ventricular systolic func tion is moderately reduced. The quantitative left ventricular ejection f raction by biplane Harden's method is 30%. There are left ventricula r segmental wall motion abnormalities present, as shown in the d iagram below. 2. The right ventricle is normal in size . Right ventricular global systolic function is low normal. 3. There is no hemodynamically significa nt valve disease. 4. When compared with study dated 08/2018 , there has been a significant decline in LV function with new wall mot ion abnormalities. 5. See remainder of report for additiona l findings. Findings : Study Quality: Adequate Left Ventricle: The left ventricular aimee mber size is normal. Left ventricular wall thickness is norm al. No ventricular septal defect is visuali zed. Global left ventricular systolic functi on is moderately reduced. The quantitative left ventricular eject ion fraction by biplane Harden's method is 30%. There are left ventricular segmental wa ll motion abnormalities present, as shown in the diagram below. There is a left ventricular septal wall motion abnormality observed, possibly due to the presence of a left b undle branch block. Doppler assessment is consistent with n ormal left sided filling pressure. The basal inferoseptal, mid anterolater al, and mid inferolateral wall segments are hypokinetic (score 2). The mid anteroseptal, mid anterior, mid inferior, mid inferoseptal, apical septal, apical anterior, apical l ateral, and apical inferior wall segments are akinetic (score 3). Overall wallmotion score index is 2.19 No thrombus is visualized within the le ft ventricle. Left Atrium: The left atrium is normal i n size. Right Ventricle: The right ventricle is normal in size. Right ventricular global systolic funct ion is low normal. The estimated pulmonary artery systolic pressure is 20 mmHg.+RAP Right Atrium: The right atrium is normal in size. Aortic Valve: The aortic valve is tricus pid. There is no evidence of aortic valve th ickening. Systolic excursion of the aortic valve is normal. There is no evidence of aortic valve st enosis. There is no evidence of aortic regurgit ation. Mitral Valve: The mitral valve leaflets are mildly thickened. There is posterior mitral annular calci fication. There is trace mitral regurgitation pre sent. Tricuspid Valve: The tricuspid valve jonathan ears normal in structure and function. There is trace tricuspid regurgitation present. Pulmonic Valve: The pulmonic valve appea rs normal in structure and function. There is no evidence of pulmonic regurg itation. Pericardium: The pericardium appears nor mal and there is no evidence of a pericardial effusion. Aorta: The aortic root is normal in size . The ascending aorta is normal in size. Pulmonary Artery: The main pulmonary art jose appears normal. Venous: The inferior vena cava appears n ormal in size.pt intubated Misc: There is no hemodynamically signif icant valve disease. See remainder of report for additional findings. Two-dimensional echo, spectral Doppler and color Doppler performed. Optison contrast (one 3 ml vial) was us ed to enhance endocardial definition. Excess contrast was discarde d. Chambers 2D Value Units (Range) IVSd (2D) 1.1 cm LVPWd (2D) 0.9 cm IVS:LVPW ratio (2D) 1.2 ratio RWT (2D) 0.4 ratio RWT PW (2D) 0.4 ratio LVIDd (2D) 5.4 cm LVIDs (2D) 4.4 cm LVIDd (2D) index 2.2 cm/m2 LVIDs (2D) index 1.8 cm/m2 LV FS (2D) 17 % EF Teichholz (2D) 36 % Ao root diameter (2D3.5 cm (2.1 - 3.6) Ascending Ao 3.4 cm (2 - 3.5) Volumes/Mass Value Units (Range) LA Area 4 CH 15.3 cm2 (<21) RA AREA 4CH 11.2 cm2 LA ESV BP (MOD) inde16.5 ml/m2 LV ESV SP 4CH (MOD) 107 ml LV ESV SP 2CH (MOD) 114 ml LV EDV BP 159 ml LV ESV BP 112 ml LV EDV BP index 66 ml/m2 LV ESV BP index 46.5 ml/m2 BP EF (MOD) 30 % LV mass (2D) 211.4 g LV mass (2D) index 87.7 g/m2 Diastolic/Systolic Function Value Units (Range) MV E-wave Vmax 0.8 m/sec MV deceleration aahr755 msec MV A-wave Vmax 0.9 m/sec MV E:A ratio 0.9 ratio LV septal e' Vmax 0.1 m/sec LV lateral e' Vmax 0.1 m/sec LV average e' Vmax 0.1 m/sec LV E:e' septal ratio10.4 ratio LV E:e' lateral rati7.3 ratio LV average E:e' rati8.9 ratio Tricuspid Valve Value Units (Range) TR Vmax 2.2 m/sec TR peak gradient 20 mmHg RVSP 20 mmHg Wall Motion: Segment Name Rest Base-Anteroseptal Normal Base-Anterior Normal Base-Anterolateral Normal Base-Posterolateral Normal Base-Inferior Normal Base-Inferoseptal Hypokinetic Mid-Anteroseptal Akinetic Mid-Anterior Akinetic Mid-Anterolateral Hypokinetic Mid-Posterolateral Hypokinetic Mid-Inferior Akinetic Mid-Inferoseptal Akinetic [place]-Septal Akinetic [place]-Anterior Akinetic [place]-Lateral Akinetic [place]-Inferior Akinetic [place]-Tip Akinetic This report has been electronically sign ed by: _ Qamar Brooks M.D. 01/06/2019 08:17: 04 Images reviewed and interpretation verif ied [facility] Cardiac Ultrasound Laboratory Hossein Chahal MD ECHO ORDERABLES Performing Organization Address City/State/ZIP Code Phon e Number [facility] (ABNORMAL) POCT Glucose (01/05/2019 12:05 PM EDT) P athologist Signature POC Glucose 269 (H) 65 - 199 [facility] mg/dL [facility] Comment: Supplemental ranges: <140 mg/dL before meals <180 mg/dL all other times of the day Specimen Anatomical Collection Method Collection Time Receive d Time (Source) Location / / Volume Laterality Blood specimen 01/05/2019 12:05 9 (specimen) PM EDT 12:05 PM EDT Ace Henry MD POINT OF CARE TEST ORDERABLE S Performing Organization Address City/[facility]/ZIP Code Phon e Number [address] POCT Glucose (01/05/2019 11:06 AM EDT) P athologist Signature POC Glucose 145 65 - 199 [facility] Comment: Supplemental ranges: <140 mg/dL before meals <180 mg/dL all other times of the day Specimen Anatomical Collection Method Collection Time Receive d Time (Source) Location / / Volume Laterality Blood specimen 01/05/2019 11:06 9 (specimen) AM EDT 11:06 AM EDT Ace Henry MD POINT OF CARE TEST ORDERABLE S Performing Organization Address City/[facility]/ZIP Code Phon e Number [address] Urine culture (01/05/2019 10:35 AM EDT) [facility] Method Time Signature Urine Culture No growth [facility] (Less than [facility] 1,000 [facility] cfu/ml). LABORATORY Specimen (Source) Anatomical Collection Method Collection Time Re ceived Time Location / / Volume Laterality Urine specimen 01/05/2019 10:35 9 obtained via AM EDT 11:41 AM EDT indwelling urinary catheter (specimen) Resulting Agency Comment Spec In Lab My Wilcox MD MICROBIOLOGY - GENERAL ORDER ELINA Performing Organization Address City/[facility]/[place] [address] (ABNORMAL) Urinalysis Microscopic Exam (01/05/2019 10:35 AM EDT) [facility] Method Time Signature RBC UA 21 (H) 0 - 4 [facility] /HPF [facility] LABORATORY WBC UA >182 (H) 0 - 5 [facility] /HPF [facility] LAB[facility]ORY WBCs Clumping Occasional (A) None /HPF [facility] Bacteria UA Few (A) None /HPF [facility] Yeast [place] UA Occasional (A) None /HPF [facility] Squam Epith <1 <=4 /HPF [facility] Hyaline Cast 7 (H) 0 - 2 [facility] UA /LPF [facility] LABORATORY Specimen (Source) Anatomical Collection Method Collection Time Re ceived Time Location / / Volume Laterality Urine specimen 01/05/2019 10:35 9 obtained via AM EDT 10:50 AM EDT indwelling urinary catheter (specimen) Resulting Agency Comment Spec In Lab My Wilcox MD URINE ORDERABLES Performing Organization Address City/State/ZIP [place] [address] (ABNORMAL) Urinalysis with reflex Culture (01/05/2019 10:35 AM EDT) [facility] Method Time Signature Glucose UA Negative Negative [facility] mg/dL [facility] Protein UA 100 (A) Negative [facility] mg/dL [facility] Bilirubin UA Negative Negative [facility] mg/dL [facility] Comment: Clinical correlation required for positi ve Urine Bilirubin results as false positive may occur with some drugs and d rug related products. If a false positive is suspected a serum total bili bailon should be considered if clinically indicated. Urobilinogen UA Normal Normal mg/dL [facility] pH UA 5.0 5.0 - 8.0 [facility] Blood UA Negative Negative mg/dL [facility] Ketones UA Negative Negative mg/dL [facility] Nitrite UA Negative Negative [facility] Leukocytes UA Large (A) Negative mcL [facility] Appearance UA Cloudy (A) Clear [facility] Spec [place] UA >1.035 (H) 1.002 - 1.030 [facility] LAB[facility]ORY Color UA Yellow Yellow [facility] Culture Reflexed Yes [facility] Specimen (Source) Anatomical Collection Method Collection Time Re ceived Time Location / / Volume Laterality Urine specimen 01/05/2019 10:35 9 obtained via AM EDT 10:50 AM EDT indwelling urinary catheter (specimen) Resulting Agency Comment Spec In Lab Ace Henry MD URINE ORDERABLES Performing Organization Address City/State/ZIP Code Phon e Number [place] [id number] [facility] [address] POCT Glucose (01/05/2019 10:02 AM EDT) P athologist Signature POC Glucose 129 65 - 199 [facility]dL [facility] Comment: Supplemental ranges: <140 mg/dL before meals <180 mg/dL all other times of the day Specimen Anatomical Collection Method Collection Time Receive d Time (Source) Location / / Volume Laterality Blood specimen 01/05/2019 10:02 9 (specimen) AM EDT 10:02 AM EDT Ace Henry MD POINT OF CARE TEST ORDERABLE S Performing Organization Address City/[facility]/ZIP Code Phon e Number [address] (ABNORMAL) Differential, Automated (01/05/2019 10:00 AM EDT) Patholo gist Method Time Signature Neutrophils % 73.5 % [facility] Neutr Abs (ANC) 14.22 (H) 1.70 - [facility] 6.10 [facility] x10(3)/[facility] LABORATORY Lymphocytes % 17.5 % [facility] Lymphocytes Abs 3.4 (H) 0.9 - 3.2 [facility] x10(3)/[facility] LABORATORY Monocytes % 8.3 % [facility] Monocyte Abs 1.6 (H) 0.3 - 0.9 [facility] x10(3)/[facility] LABORATORY Eosinophils % 0.0 % [facility] Eosinophils Abs 0.0 0.0 - 0.4 [facility] x10(3)/[facility] LABORATORY Basophils % 0.2 % [facility] Basophils Abs 0.0 0.0 - 0.1 [facility] x10(3)/[facility] LABORATORY Immature Gran % 0.50 % [facility] Comment: Immature granulocytes(IG's)percentage an d absolute count will include metamyelocytes, myelocytes, and promyelo cytes. Blood smears from CBCs yielding IG's will be scanned manually for maulik farooq. If this scan disagrees with the automated IG or if promyelocytes are not ed, a manual differential will be performed. Irina Gran Abs 0.10 (H) 0.00 - 0.04 x10(3)/[facility] LABORATORY Specimen Anatomical Collection Method Collection Time Receive d Time (Source) Location / / Volume Laterality Blood specimen Venous Draw / 01/05/2019 10:00 01/06/20 19 (specimen) Unknown AM EDT 10:12 AM EDT Resulting Agency Comment Spec In Lab Severino Larson MD HEMATOLOGY ORDERABLES Performing Organization Address City/State/ZIP [place] [address] (ABNORMAL) Hemogram (01/05/2019 10:00 AM EDT) Analysis Performed At Patho logist Time Signature WBC 19.3 (H) 4.0 - 9.5 [facility] x[facility](3[facility] LABORATORY RBC 4.25 4.00 - [facility] 5.21 [facility] x10(6)/[facility] LABORATORY Hemoglobin 12.6 11.7 - [facility] 15.5 gm/dL [facility] Hematocrit 39.3 35.7 - [facility] 45.8 % [facility] MCV 92.5 82.6 - [facility] 94.4 [facility] LABORATORY MCH 29.6 27.1 - [place] [facility] 32.0 pg [facility] MCHC 32.1 31.7 - [facility] 35.0 gm/dL [facility] Platelets 243 145 - 357 [facility] x10(3)/[facility] LABORATORY RDWSD 44.3 37.0 - [facility] 46.0 [facility] LABORATORY RDWCV 13.1 11.5 - [facility] 14.1 % [facility] MPV 10.5 7.6 - 12.9 [facility] LABORATORY nRBC % Auto 0.0 % [facility] nRBC Abs Auto 0.000 0.000 - [facility] [employer] 0.000 [facility] x10(3)/[facility] LABORATORY Specimen Anatomical Collection Method Collection Time Receive d Time (Source) Location / / Volume Laterality Blood specimen Venous Draw / 01/05/2019 10:00 01/06/20 19 (specimen) Unknown AM EDT 10:12 AM EDT Resulting Agency Comment Spec In Lab Severino Larson MD HEMATOLOGY ORDERABLES Performing Organization Address City/[facility]/ZIP Code Phon e Number [address] Lavender Tube HOLD (01/05/2019 10:00 AM EDT) Patholo gist Method Time Signature Lavender Hold Sample in [facility]. [facility] Specimen Anatomical Collection Method Collection Time Receive d Time (Source) Location / / Volume Laterality Blood specimen Venous Draw / 01/05/2019 10:00 01/06/20 19 (specimen) Unknown AM EDT 10:12 AM EDT Severino Larson MD HEMATOLOGY ORDERABLES Performing Organization Address City/[facility]/[place] [address] (ABNORMAL) Basic Metabolic Panel (non-fasting) (01/05/2019 10:00 AM EDT) P athologist Signature Glucose Lvl 144 65 - 199 [facility] mg/dL [facility] Comment: Diabetes: >=200 mg/dL plus symp toms BUN 14 8 - 18 mg/dL [facility] Creatinine 0.89 0.70 - 1.20 mg/dL [facility] Sodium 139 135 - 145 mmol/L [facility] Potassium 4.4 3.5 - 5.0 mmol/L [facility] Comment: Result rechecked. mm Please note: ??Patients with WBC >100,00 0 may have falsely elevated Potassium levels. ??For accurate Potassium quantif ication in these patients send serum separator tube (gold top) for subsequent determinations. ??Contact the Clinical Chemistry Laboratory if there are any qu estions. Please note: ??Patients with WBC >100,00 0 may have falsely elevated Potassium levels. ??For accurate Potassium quantif ication in these patients send serum separator tube (gold top) for subsequent determinations. ??Contact the Clinical Chemistry Laboratory if there are any qu estions. Corrected from 4.4 mMol/L on 01/05/19 13 :07:08 EDT by Leon Borrego Chloride 110 (H) 98 - 107 mmol/L [facility] Comment: Result rechecked.01/05/19 10:28 mm Corrected from 110 mMol/L [HI] on 13:07:08 EDT by Leon Borrego CO2 21 (L) 22 - 31 mmol/L [facility] Anion Gap 8 5 - 15 mmol/L [facility] Calcium 10.4 8.5 - 10.5 mg/dL [facility] Estimated GFR 71 >=60 mL/min/1.73 m?? [facility] Comment: The eGFR was calculated using the CKD-EP I equation. As with all creatinine based estimates of kidney function, eGFR values calculated with the CKD-EPI equation are not accurate in patients wi th acute kidney failure, extremes of body mass or the acutely ill. http://[employer]/[facility] TULSAnkf eGFR 82 >=60 mL/min/1.73 m?? [facility] Comment: The eGFR was calculated using the CKD-EP I equation. As with all creatinine based estimates of kidney function, eGFR values calculated with the CKD-EPI equation are not accurate in patients wi th acute kidney failure, extremes of body mass or the acutely ill. http://[employer]/[facility] TULSAnkf Specimen Anatomical Collection Method Collection Time Receive d Time (Source) Location / / Volume Laterality Blood specimen 01/05/2019 10:00 9 (specimen) AM EDT 12:50 PM EDT Resulting Agency Comment Spec In Lab Ace Henry MD CHEMISTRY ORDERABLES Performing Organization Address City/State/ZIP [place] [address] (ABNORMAL) Troponin (01/05/2019 10:00 AM EDT) athologist Signature Troponin-T 0.30 (H) 0.00 - [facility] 0.00 ng/mL [facility] Comment: The 99th percentile for Troponin T is le ss than 0.01 ng/mL, any detectable cTnT concentration using this assay should be considered elevated. According to the third universal definit ion of myocardial infarction the following criteria with a clinical prese ntation consistent with acute myocardial ischemia meets the diagnosis for a myocardial infarction (CO). Detection of a rise and/or fall of cTnT, with at least one value greater than the 99th percentile (> or = 0.01) and wi th at least one of the following ?? Symptoms of ischemia ?? New or presumed new significant ST-se gment-T wave (ST-T) changes or new left bundle branch block (LBBB) ?? Development of pathologic Q waves in the ECG ?? Imaging evidence of new loss of viabl e myocardium or new regional wall motion abnormality ?? Identification of an intracoronary th rombus by angiography or autopsy Samples for cTnT testing should be obtai mariam serially upon first assessment and again 3 to 6 hours later. If the clinica l suspicion is high and previous samples have been negative an additional sample may be indicated. Reference: Third [place] Definition of Myocardial Infarction. Journal of the [place] [employer] 2012;60:1581-98 Specimen Anatomical Collection Method Collection Time Receive d Time (Source) Location / / Volume Laterality Blood specimen 01/05/2019 10:00 9 (specimen) AM EDT 10:11 AM EDT Resulting Agency Comment Spec In Lab Ace Henry MD CHEMISTRY ORDERABLES Performing Organization Address City/State/ZIP Code Phon [place] [address] (ABNORMAL) Phosphorus (01/05/2019 10:00 AM EDT) P athologist Signature Phosphorus 0.9 2.5 - 4.5 [facility] (Critical) mg/dL [facility] Comment: Called by: NOY, Read back by: Hill zimmerman, Date/Time:01/05/19 10:57. Result rechecked. Specimen Anatomical Collection Method Collection Time Receive d Time (Source) Location / / Volume Laterality Blood specimen 01/05/2019 10:00 9 (specimen) AM EDT 10:11 AM EDT Resulting Agency Comment Spec In Lab Ace Henry MD CHEMISTRY ORDERABLES Performing Organization Address City/State/ZIP Code Phon e Number [address] (ABNORMAL) Magnesium (01/05/2019 10:00 AM EDT) athologist Signature Magnesium 0.68 (L) 0.69 - 1.07 [facility] mmol/L [facility] Specimen Anatomical Collection Method Collection Time Receive d Time (Source) Location / / Volume Laterality Blood specimen 01/05/2019 10:00 9 (specimen) AM EDT 10:11 AM EDT Resulting Agency Comment Spec In Lab Ace Henry MD CHEMISTRY ORDERABLES Performing Organization Address City/[facility]/ZIP Code Phon e Number [address] POCT Glucose (01/05/2019 9:06 AM EDT) athologist Signature POC Glucose 152 65 - 199 [facility] mg/dL [facility] Comment: Supplemental ranges: <140 mg/dL before meals <180 mg/dL all other times of the day Specimen Anatomical Collection Method Collection Time Receive d Time (Source) Location / / Volume Laterality Blood specimen 01/05/2019 9:06 AM 019 9:06 (specimen) EDT AM EDT Ace Henry MD POINT OF CARE TEST ORDERABLE S Performing Organization Address City/[facility]/ZIP Code Phon e Number [address] Coox2 (01/05/2019 8:37 AM EDT) athologist Signature pO2 Coox 28 mmHg [facility] Hgb Blood Gas 14.4 11.7 - [facility] 15.5 gm/dL [facility] O2HB Coox 61.2 % [facility] COHB Coox 0.8 % [facility] Comment: Nonsmokers: 0.5-1.5% COHB Smokers: Variable, but usually less than 10% Toxic: 20-30% COHB Lethal: Greater than 60% COHB METHB Coox 0.4 <=1.5 % [facility] Source Coox Mixed Venous [facility] Specimen Anatomical Collection Method Collection Time Receive d Time (Source) Location / / Volume Laterality Blood specimen 01/05/2019 8:37 AM 019 8:37 (specimen) EDT AM EDT Ace Henry MD CHEMISTRY ORDERABLES Performing Organization Address City/State/ZIP [place] [address] (ABNORMAL) BLOOD GAS 2 ARTERIAL (01/05/2019 8:28 AM EDT) Analysis Performed At Patho logist Time Signature pH Art 7.38 7.35 - [facility] 7.45 [facility] pCO2 Art 30 (L) 35 - 45 [facility] mmHg [facility] pO2 Art 130 (H) 85 - 104 [facility] LAB[facility]ORY HCO3 Art 17.7 (L) 20.0 - [facility] 26.0 [facility] mmol/L [facility] BE Art -7.3 (L) -3.0 - 3.0 [facility] mmol/L [facility] Hgb Blood Gas 14.1 11.7 - [facility] 15.5 gm/dL [facility] O2HB Art 97.2 (H) 94.0 - [facility] 97.0 % [facility] COHB Art 0.7 % [facility] Comment: Nonsmokers: 0.5-1.5% COHB Smokers: Variable, but usually less than 10% Toxic: 20-30% COHB Lethal: Greater than 60% COHB METHB Art 0.4 <=1.5 % [facility] Na Whole Blood 140 135 - 145 mmol/L [facility] K Whole Blood 4.3 3.5 - 5.0 mmol/L [facility] Comment: Please note: Patients with WBC >100,000 may have falsely elevated Potassium levels. Contact the Clinical Chemistry L aboratory if there are any questions. ICa Whole Blood 1.37 (H) 1.15 - 1.33 mmol/L [facility] Comment: Note: ??Total bilirubin higher than 20 m g/dL may lead to falsely low ionized calcium. CL Whole Blood 109 (H) 98 - 107 mmol/L [facility] Gluc Whole Bld 171 65 - 199 mg/dL [facility] Comment: Diabetes: >=200 mg/dL plus symp toms. Lactate WB 3.0 (H) 0.5 - 2.2 mmol/L [facility] FIO2 Art 50 % [facility] PF Ratio Art 260 [facility] Specimen Anatomical Collection Method Collection Time Receive d Time (Source) Location / / Volume Laterality Blood specimen 01/05/2019 8:28 AM 019 8:28 (specimen) EDT AM EDT Ace Henry MD CHEMISTRY ORDERABLES Performing Organization Address City/[facility]/ZIP [facility] [place] [address] POCT Glucose (01/05/2019 8:10 AM EDT) P athologist Signature POC Glucose 176 65 - 199 [facility]dL [facility] Comment: Supplemental ranges: <140 mg/dL before meals <180 mg/dL all other times of the day Specimen Anatomical Collection Method Collection Time Receive d Time (Source) Location / / Volume Laterality Blood specimen 01/05/2019 8:10 AM 019 8:10 (specimen) EDT AM EDT Ace Henry MD POINT OF CARE TEST ORDERABLE S Performing Organization Address City/[facility]/[place] [address] (ABNORMAL) POCT Glucose (01/05/2019 6:46 AM EDT) P athologist Signature POC Glucose 241 (H) 65 - 199 [facility] mg/dL [facility] Comment: Supplemental ranges: <140 mg/dL before meals <180 mg/dL all other times of the day Specimen Anatomical Collection Method Collection Time Receive d Time (Source) Location / / Volume Laterality Blood specimen 01/05/2019 6:46 AM 019 6:46 (specimen) EDT AM EDT Ace Henry MD POINT OF CARE TEST ORDERABLE S Performing Organization Address City/State/ZIP Code Phon e Number [address] (ABNORMAL) POCT Glucose (01/05/2019 5:46 AM EDT) athologist Signature POC Glucose 300 (H) 65 - 199 [facility] mg/dL [facility] Comment: Supplemental ranges: <140 mg/dL before meals <180 mg/dL all other times of the day Specimen Anatomical Collection Method Collection Time Receive d Time (Source) Location / / Volume Laterality Blood specimen 01/05/2019 5:46 AM 019 5:46 (specimen) EDT AM EDT Ace Henry MD POINT OF CARE TEST ORDERABLE S Performing Organization Address City/[facility]/[place] [address] (ABNORMAL) BLOOD GAS 2 ARTERIAL (01/05/2019 5:43 AM EDT) athologist Signature pH Art 7.28 7.35 - [facility] (Critical) 7.45 [facility] Comment: Noted by instrument sterilizer. pCO2 Art 37 35 - 45 mmHg [facility] pO2 Art 126 (H) 85 - [address] [facility] HCO3 Art 16.9 (L) 20.0 - 26.0 mmol/L [facility] BE Art -9.9 (L) -3.0 - 3.0 mmol/L [facility] Hgb Blood Gas 14.1 11.7 - 15.5 gm/dL [facility] O2HB Art 97.1 (H) 94.0 - 97.0 % [facility] COHB Art 0.5 % [facility] Comment: Nonsmokers: 0.5-1.5% COHB Smokers: Variable, but usually less than 10% Toxic: 20-30% COHB Lethal: Greater than 60% COHB METHB Art 0.4 <=1.5 % [facility] Na Whole Blood 140 135 - 145 mmol/L [facility] K Whole Blood 4.5 3.5 - 5.0 mmol/L [facility] Comment: Please note: Patients with WBC >100,000 may have falsely elevated Potassium levels. Contact the Clinical Chemistry L aboratory if there are any questions. ICa Whole Blood 1.34 (H) 1.15 - 1.33 mmol/L [facility] Comment: Note: ??Total bilirubin higher than 20 m g/dL may lead to falsely low ionized calcium. CL Whole Blood 109 (H) 98 - 107 mmol/L [facility] Gluc Whole Bld 269 (H) 65 - 199 mg/dL [facility] Comment: Diabetes: >=200 mg/dL plus symp toms. Lactate WB 4.3 (Critical) 0.5 - 2.2 mmol/L [facility] Comment: Noted by instrument sterilizer. FIO2 Art 70 % [facility] PF Ratio Art 180 [facility] Specimen Anatomical Collection Method Collection Time Receive d Time (Source) Location / / Volume Laterality Blood specimen 01/05/2019 5:43 AM 019 5:43 (specimen) EDT AM EDT Ace Henry MD CHEMISTRY ORDERABLES Performing Organization Address City/State/ZIP [place] [address] XR Abdomen 1 view (Generic) (01/05/2019 5:00 AM EDT) Anatomical Region Laterality Modality Abdomen N/A Digital Radiography Specimen (Source) Anatomical Location Collection Method / Collectio n Time Received Time / Laterality Volume Impressions 01/05/2019 5:09 AM EDT Enteric tube terminates within the stomach. I have personally reviewed the image(s) and the residents interpretation and agree with the findings, Brandi Reyes at 01/05/2019 5:09 AM Thank you for letting us participate in the care of this patient. For questions regarding this report, please contact e number below. ? Electronically signed by: Maciel José Count Includes [facility] ([phone]), at 01/05/2019 5:09 AM Narrative 01/05/2019 5:09 AM EDT EXAMINATION: XR ABDOMEN 1 VIEW (GENERIC) CLINICAL HISTORY: confirm og tube placem ent TECHNIQUE: Limited radiograph of the upper abdomen and lower chest to confirm placement of an enteric tube. COMPARISON: Chest radiograph dated 01/05/2019. FINDINGS: An enteric tube extends below the diaphr agm with tip and side-port in the body of the stomach. Partially visualized low er aspect of the pulmonary artery catheter and ET tube-fully evaluated on concurrent chest radiograph. Right upper quadrant surgical clip is pr esent related to prior cholecystectomy. Limited visualization of the bowel. Procedure Note Brandi Reyes MD - 01/05/2019 EXAMINATION: XR ABDOMEN 1 VIEW (GENERIC) CLINICAL HISTORY: confirm og tube placem ent TECHNIQUE: Limited radiograph of the upper abdomen and lower chest to confirm placement of an enteric tube. COMPARISON: Chest radiograph dated 01/05/2019. FINDINGS: An enteric tube extends below the diaphr agm with tip and side-port in the body of the stomach. Partially visualized low er aspect of the pulmonary artery catheter and ET tube-fully evaluated on concurrent chest radiograph. Right upper quadrant surgical clip is pr esent related to prior cholecystectomy. Limited visualization of the bowel. IMPRESSION Enteric tube terminates within the stoma ch. I have personally reviewed the image(s) and the residents interpretation and agree with the findings, Brandi Reyes at 01/05/2019 5:09 AM Thank you for letting us participate in the care of this patient. For questions regarding this report, please contact e number below. Electronically signed by: Maciel José Count Includes [facility] ([phone]), at 01/05/2019 5:09 AM Ace C White MD IMG DX ORDERABLES XR Chest PA or AP 1 view (01/05/2019 4:47 AM EDT) Anatomical Region Laterality Modality Chest N/A Digital Radiography Specimen (Source) Anatomical Location Collection Method / Collectio n Time Received Time / Laterality Volume Impressions 01/05/2019 5:13 AM EDT 1. ??Lines and tubes as above. 2. ??Mildly improved pulmonary edema, ot herwise, stable examination. I have personally reviewed the image(s) and the residents interpretation and agree with the findings, Brandi Reyes at 01/05/2019 5:13 AM Thank you for letting us participate in the care of this patient. For questions regarding this report, please contact e number below. ? Narrative 01/05/2019 5:13 AM EDT EXAMINATION: XR CHEST PA OR AP 1 VIEW CLINICAL HISTORY: confirm og and central line placement TECHNIQUE: 1 view of the chest COMPARISON: Multiple prior chest regressed most rece ntly dated 01/04/2019. FINDINGS: ET tube is 5.7 cm above the tod. OG t ube extends below the diaphragm, with tip terminating within the stomach onelia cterized on concurrent abdomen radiograph. A right IJ approach pulmonar y artery catheter terminates in the right pulmonary artery. Epicardial pacer overlies the mid medias tinum partially obscuring evaluation. Slightly decreased confluence of the per ihilar pulmonary opacities. Persistent dense retrocardiac opacity. Small bilate ral pleural effusions are again noted. No pneumothorax. The cardiomediastinal s ilhouette is grossly stable. Procedure Note Brandi Reyes MD - 01/05/2019 EXAMINATION: XR CHEST PA OR AP 1 VIEW CLINICAL HISTORY: confirm og and central line placement TECHNIQUE: 1 view of the chest COMPARISON: Multiple prior chest regressed most rece ntly dated 01/04/2019. FINDINGS: ET tube is 5.7 cm above the tod. OG t ube extends below the diaphragm, with tip terminating within the stomach onelia cterized on concurrent abdomen radiograph. A right IJ approach pulmonar y artery catheter terminates in the right pulmonary artery. Epicardial pacer overlies the mid medias tinum partially obscuring evaluation. Slightly decreased confluence of the per ihilar pulmonary opacities. Persistent dense retrocardiac opacity. Small bilate ral pleural effusions are again noted. No pneumothorax. The cardiomediastinal s ilhouette is grossly stable. IMPRESSION 1. Lines and tubes as above. 2. Mildly improved pulmonary edema, othe rwise, stable examination. I have personally reviewed the image(s) and the residents interpretation and agree with the findings, Brandi Reyes at 01/05/2019 5:13 AM Thank you for letting us participate in the care of this patient. For questions regarding this report, please contact e number below. Electronically signed by: Maciel José Count Includes [facility] ([phone]), at 01/05/2019 5:13 AM Ace Henry MD IMG DX ORDERABLES Coox2 (01/05/2019 4:30 AM EDT) P athologist Signature pO2 Coox 40 mmHg [facility] Hgb Blood Gas 14.2 11.7 - [facility] 15.5 gm/dL [facility] O2HB Coox 70.3 % [facility] COHB Coox 0.5 % [facility] Comment: Nonsmokers: 0.5-1.5% COHB Smokers: Variable, but usually less than 10% Toxic: 20-30% COHB Lethal: Greater than 60% COHB METHB Coox 0.4 <=1.5 % [facility] Source Coox Mixed Venous [facility] Specimen Anatomical Collection Method Collection Time Receive d Time (Source) Location / / Volume Laterality Blood specimen 01/05/2019 4:30 AM 019 4:30 (specimen) EDT AM EDT Ace Henry MD CHEMISTRY ORDERABLES Performing Organization Address City/[facility]/[place] [address] (ABNORMAL) Troponin (01/05/2019 4:30 AM EDT) P athologist Signature Troponin-T 0.32 (H) 0.00 - [facility] 0.00 ng/mL [facility] Comment: The 99th percentile for Troponin T is le ss than 0.01 ng/mL, any detectable cTnT concentration using this assay should be considered elevated. According to the third universal definit ion of myocardial infarction the following criteria with a clinical prese ntation consistent with acute myocardial ischemia meets the diagnosis for a myocardial infarction (CO). Detection of a rise and/or fall of cTnT, with at least one value greater than the 99th percentile (> or = 0.01) and wi th at least one of the following ?? Symptoms of ischemia ?? New or presumed new significant ST-se gment-T wave (ST-T) changes or new left bundle branch block (LBBB) ?? Development of pathologic Q waves in the ECG ?? Imaging evidence of new loss of viabl e myocardium or new regional wall motion abnormality ?? Identification of an intracoronary th rombus by angiography or autopsy Samples for cTnT testing should be obtai mariam serially upon first assessment and again 3 to 6 hours later. If the clinica l suspicion is high and previous samples have been negative an additional sample may be indicated. Reference: Third [place] Definition of Myocardial Infarction. Journal of the [place] [employer] 2012;60:1581-98 Specimen Anatomical Collection Method Collection Time Receive d Time (Source) Location / / Volume Laterality Blood specimen 01/05/2019 4:30 AM 019 4:33 (specimen) EDT AM EDT Resulting Agency Comment Spec In Lab Ace Henry MD CHEMISTRY ORDERABLES Performing Organization Address City/[facility]/[place] [address] (ABNORMAL) POCT Glucose (01/05/2019 3:46 AM EDT) athologist Signature POC Glucose 394 (H) 65 - 199 [facility] mg/dL [facility] Comment: Supplemental ranges: <140 mg/dL before meals <180 mg/dL all other times of the day Specimen Anatomical Collection Method Collection Time Receive d Time (Source) Location / / Volume Laterality Blood specimen 01/05/2019 3:46 AM 019 3:46 (specimen) EDT AM EDT Ace Henry MD POINT OF CARE TEST ORDERABLE S Performing Organization Address City/State/ZIP [place] [address] (ABNORMAL) BLOOD GAS 2 ARTERIAL (01/05/2019 2:39 AM EDT) athologist Signature pH Art 7.18 7.35 - [facility] (Critical) 7.45 [facility] Comment: Noted by instrument sterilizer. not Noted by instrument sterilizer. Corrected from 7.18 [CRIT] on 01/06/19 7 :33:19 EDT by Viky Fields I. pCO2 Art 37 35 - 45 mmHg [facility] pO2 Art 70 (L) 85 - [address] [facility] HCO3 Art 13.2 (L) 20.0 - 26.0 mmol/L [facility] BE Art -15.2 (L) -3.0 - 3.0 mmol/L [facility] Hgb Blood Gas 13.4 11.7 - 15.5 gm/dL [facility] O2HB Art 90.5 (L) 94.0 - 97.0 % [facility] COHB Art 0.6 % [facility] Comment: Nonsmokers: 0.5-1.5% COHB Smokers: Variable, but usually less than 10% Toxic: 20-30% COHB Lethal: Greater than 60% COHB METHB Art 0.3 <=1.5 % [facility] Na Whole Blood 137 135 - 145 mmol/L [facility] K Whole Blood 5.7 (H) 3.5 - 5.0 mmol/L [facility] Comment: Please note: Patients with WBC >100,000 may have falsely elevated Potassium levels. Contact the Clinical Chemistry L aboratory if there are any questions. ICa Whole Blood 1.29 1.15 - 1.33 mmol/L [facility] Comment: Note: ??Total bilirubin higher than 20 m g/dL may lead to falsely low ionized calcium. CL Whole Blood 108 (H) 98 - 107 mmol/L [facility] Gluc Whole Bld 461 (H) 65 - 199 mg/dL [facility] Comment: Diabetes: >=200 mg/dL plus symp toms. Lactate WB 5.6 (Critical) 0.5 - 2.2 mmol/L [facility] Comment: Noted by instrument sterilizer. not Noted by instrument sterilizer. Corrected from 5.6 mMol/L [CRIT] on 12/21 02/07 7:33:19 EDT by Viky Fields I. Specimen Anatomical Collection Method Collection Time Receive d Time (Source) Location / / Volume Laterality Blood specimen 01/05/2019 2:39 AM 019 2:39 (specimen) EDT AM EDT Ace Henry MD CHEMISTRY ORDERABLES Performing Organization Address City/State/ZIP [place] [address] (ABNORMAL) BLOOD GAS 2 ARTERIAL (01/05/2019 1:59 AM EDT) athologist Signature pH Art 7.11 7.35 - [facility] (Critical) 7.45 [facility] Comment: not Noted by instrument operato r. pCO2 Art 55 (H) 35 - 45 mmHg [facility] pO2 Art 74 (L) 85 - [address] [facility] HCO3 Art 17.1 (L) 20.0 - 26.0 mmol/L [facility] BE Art -12.3 (L) -3.0 - 3.0 mmol/L [facility] Hgb Blood Gas 14.0 11.7 - 15.5 gm/dL [facility] O2HB Art 90.9 (L) 94.0 - 97.0 % [facility] COHB Art 0.5 % [facility] Comment: Nonsmokers: 0.5-1.5% COHB Smokers: Variable, but usually less than 10% Toxic: 20-30% COHB Lethal: Greater than 60% COHB METHB Art 0.0 <=1.5 % [facility] Na Whole Blood 138 135 - 145 mmol/L [facility] K Whole Blood 5.6 (H) 3.5 - 5.0 mmol/L [facility] Comment: Please note: Patients with WBC >100,000 may have falsely elevated Potassium levels. Contact the Clinical Chemistry L aboratory if there are any questions. ICa Whole Blood 1.32 1.15 - 1.33 mmol/L [facility] Comment: Note: ??Total bilirubin higher than 20 m g/dL may lead to falsely low ionized calcium. CL Whole Blood 107 98 - 107 mmol/L [facility] Gluc Whole Bld 519 (Critical) 65 - 199 mg/dL [facility] Comment: not Noted by instrument sterilizer. Diabetes: >=200 mg/dL plus symptoms. Lactate WB 4.2 (Critical) 0.5 - 2.2 mmol/L [facility] Comment: not Noted by instrument operato r. Specimen Anatomical Collection Method Collection Time Receive d Time (Source) Location / / Volume Laterality Blood specimen 01/05/2019 1:59 AM 019 1:59 (specimen) EDT AM EDT Ace Henry MD CHEMISTRY ORDERABLES Performing Organization Address City/State/ZIP [place] [address] Blood culture (01/05/2019 1:30 AM EDT) Patholo gist Method Time Signature Blood Culture No growth [facility] at 5 days. [facility] Specimen Anatomical Collection Method Collection Time Receive d Time (Source) Location / / Volume Laterality Blood specimen 01/05/2019 1:30 AM 019 3:15 (specimen) EDT AM EDT Resulting Agency Comment Spec In Lab Morales Watt MD MICROBIOLOGY - BLOOD ORDERAB LES Performing Organization Address City/State/ZIP [place] [address] (ABNORMAL) BLOOD GAS 2 ARTERIAL (01/05/2019 1:21 AM EDT) athologist Signature pH Art 7.18 7.35 - [facility] (Critical) 7.45 [facility] Comment: Noted by instrument sterilizer. pCO2 Art 42 35 - 45 mmHg [facility] pO2 Art 106 (H) 85 - [address] [facility] HCO3 Art 15.3 (L) 20.0 - 26.0 mmol/L [facility] BE Art -13.0 (L) -3.0 - 3.0 mmol/L [facility] Hgb Blood Gas 13.9 11.7 - 15.5 gm/dL [facility] O2HB Art 95.7 94.0 - 97.0 % [facility] COHB Art 0.6 % [facility] Comment: Nonsmokers: 0.5-1.5% COHB Smokers: Variable, but usually less than 10% Toxic: 20-30% COHB Lethal: Greater than 60% COHB METHB Art 0.7 <=1.5 % [facility] Na Whole Blood 137 135 - 145 mmol/L [facility] K Whole Blood 5.1 (H) 3.5 - 5.0 mmol/L [facility] Comment: Please note: Patients with WBC >100,000 may have falsely elevated Potassium levels. Contact the Clinical Chemistry L aboratory if there are any questions. ICa Whole Blood 1.27 1.15 - 1.33 mmol/L [facility] Comment: Note: ??Total bilirubin higher than 20 m g/dL may lead to falsely low ionized calcium. CL Whole Blood 106 98 - 107 mmol/L [facility] Gluc Whole Bld 497 (H) 65 - 199 mg/dL [facility] Comment: Diabetes: >=200 mg/dL plus symp toms. Lactate WB 4.0 (Critical) 0.5 - 2.2 mmol/L [facility] Comment: Noted by instrument sterilizer. FIO2 Art 100 % [facility] PF Ratio Art 106 [facility] Specimen Anatomical Collection Method Collection Time Receive d Time (Source) Location / / Volume Laterality Blood specimen 01/05/2019 1:21 AM 019 1:21 (specimen) EDT AM EDT Hossein Chahal MD CHEMISTRY ORDERABLES Performing Organization Address City/State/ZIP Code Phon e Number [address] (ABNORMAL) POCT Glucose (01/05/2019 12:21 AM EDT) athologist Signature POC Glucose 541 65 - 199 [facility] (Critical) mg/dL [facility] Comment: Supplemental ranges: <140 mg/dL before meals <180 mg/dL all other times of the day Specimen Anatomical Collection Method Collection Time Receive d Time (Source) Location / / Volume Laterality Blood specimen 01/05/2019 12:21 9 (specimen) AM EDT 12:21 AM EDT Hossein Chahal MD POINT OF CARE TEST ORDERABLE S Performing Organization Address City/State/[place] [address] XR Chest PA or AP 1 view (01/04/2019 11:23 PM EDT) Anatomical Region Laterality Modality Chest N/A Digital Radiography Specimen (Source) Anatomical Location Collection Method / Collectio n Time Received Time / Laterality Volume Impressions 01/05/2019 12:38 AM EDT 1. ??ET tube in good position. 2. ??Right IJ central line appears to be high with tip at the confluence of the IJ and brachiocephalic vein. 3. ??New confluent perihilar pulmonary o pacities concerning for flash pulmonary edema and/or ARDS. 4. ??New dense retrocardiac opacity susp icious for complete left lower lobe atelectasis. I have personally reviewed the image(s) and the residents interpretation and agree with the findings, Brandi Reyes at 01/05/2019 12:38 AM Thank you for letting us participate in the care of this patient. For questions regarding this report, please contact e number below. ? Electronically signed by: Maciel José Count Includes [facility] ([phone]), at 01/05/2019 12:38 AM Narrative 01/05/2019 12:38 AM EDT EXAMINATION: XR CHEST PA OR AP 1 VIEW CLINICAL HISTORY: Intubation, tube place ment. TECHNIQUE: 1 view of the chest COMPARISON: Prior chest radiographs, most recent fro m 1859 hours, January 04, 2019. FINDINGS: The ET tube tip is 4.5 cm above the the tod. A sheath right IJ approach catheter terminates at the expected ayesha on of the IJ/brachiocephalic confluence. There are confluent perihilar pulmonary opacities left greater than right. There is right cardiophrenic and dense retroca rdiac airspace opacities. There is complete silhouetting of the left hemidi aphragm. Equivocal small bilateral pleural effusions. No pneumothorax. Meseret sly stable cardiomediastinal silhouette. No interval osseous changes. Procedure Note Brandi Reyes MD - 01/05/2019 EXAMINATION: XR CHEST PA OR AP 1 VIEW CLINICAL HISTORY: Intubation, tube place ment. TECHNIQUE: 1 view of the chest COMPARISON: Prior chest radiographs, most recent fro m 1859 hours, January 04, 2019. FINDINGS: The ET tube tip is 4.5 cm above the the tod. A sheath right IJ approach catheter terminates at the expected ayesha on of the IJ/brachiocephalic confluence. There are confluent perihilar pulmonary opacities left greater than right. There is right cardiophrenic and dense retroca rdiac airspace opacities. There is complete silhouetting of the left hemidi aphragm. Equivocal small bilateral pleural effusions. No pneumothorax. Meseret sly stable cardiomediastinal silhouette. No interval osseous changes. IMPRESSION 1. ET tube in good position. 2. Right IJ central line appears to be h igh with tip at the confluence of the IJ and brachiocephalic vein. 3. New confluent perihilar pulmonary opa cities concerning for flash pulmonary edema and/or ARDS. 4. New dense retrocardiac opacity suspic ious for complete left lower lobe atelectasis. I have personally reviewed the image(s) and the residents interpretation and agree with the findings, Brandi Reyes at 01/05/2019 12:38 AM Thank you for letting us participate in the care of this patient. For questions regarding this report, please contact e number below. Electronically signed by: Maciel José Count Includes [facility] ([phone]), at 01/05/2019 12:38 AM Hossein Chahal MD IMG DX ORDERABLES (ABNORMAL) POCT Glucose (01/04/2019 10:44 PM EDT) athologist Signature POC Glucose 404 (H) 65 - 199 [facility] mg/dL [facility] Comment: Supplemental ranges: <140 mg/dL before meals <180 mg/dL all other times of the day Specimen Anatomical Collection Method Collection Time Receive d Time (Source) Location / / Volume Laterality Blood specimen 01/04/2019 10:44 9 (specimen) PM EDT 10:44 PM EDT Hossein Chahal MD POINT OF CARE TEST ORDERABLE S Performing Organization Address City/State/ZIP [place] [address] (ABNORMAL) POCT Glucose (01/04/2019 9:42 PM EDT) athologist Signature POC Glucose 405 (H) 65 - 199 [facility] mg/dL [facility] Comment: Supplemental ranges: <140 mg/dL before meals <180 mg/dL all other times of the day Specimen Anatomical Collection Method Collection Time Receive d Time (Source) Location / / Volume Laterality Blood specimen 01/04/2019 9:42 PM 019 9:42 (specimen) EDT PM EDT Hossein Chahal MD POINT OF CARE TEST ORDERABLE S Performing Organization Address City/[facility]/[place] [address] EKG 12 Lead (01/04/2019 9:29 PM EDT) [facility] Method Time Signature Ventricular rate 93 BPM MUSE SYSTEM Atrial Rate 93 BPM MUSE SYSTEM P-R Interval 206 ms MUSE SYSTEM QRS Duration 150 ms MUSE SYSTEM Q-T Interval 388 ms MUSE SYSTEM QTC Calculated 482 ms MUSE SYSTEM (Bezet) Calculated P [place] 41 degrees MUSE SYSTEM Calculated R [place] -3 degrees MUSE SYSTEM Calculated T [place] -21 degrees MUSE SYSTEM INTERPRETATION Sinus rhythm with a brief run of SVT MUSE SYSTEM Left bundle branch block Abnormal ECG When compared with ECG of 26-SEP-2018 19:33, T wave inversion now evident in Inferior leads Confirmed by MD Sheridan, Kevin ([id number]) on 01/05/2019 11:32:30 AM Specimen Anatomical Collection Method Collection Time Receive d Time (Source) Location / / Volume Laterality 01/04/2019 9:29 PM 9 EDT 11:32 AM EDT Hossein Chahal MD ECG ORDERABLES Performing Organization Address City/[facility]/ZIP Code Phon e Number MUSE SYSTEM ABORH Recheck Status (01/04/2019 9:26 PM EDT) [facility] Method Time Signature ABORH Type Completed [facility] LABORATORY Specimen Anatomical Collection Method Collection Time Receive d Time (Source) Location / / Volume Laterality Blood specimen 01/04/2019 9:26 PM 019 9:31 (specimen) EDT PM EDT Resulting Agency Comment Spec In Lab Hossein Chahal MD BLOOD BANK ORDERABLES Performing Organization Address City/[facility]/[place] [address] Antibody screen (01/04/2019 9:26 PM EDT) Patholo gist Method Time Signature Ab Screen Negative [facility] LABORATORY Expires at 01/07/2019 HAILEY FAYMONICA [id number] on: [facility] Specimen Anatomical Collection Method Collection Time Receive d Time (Source) Location / / Volume Laterality Blood specimen 01/04/2019 9:26 PM 019 9:31 (specimen) EDT PM EDT Resulting Agency Comment Spec In Lab Hossein Chahal MD BLOOD BANK ORDERABLES Performing Organization Address City/State/[place] [address] ABO/Rh Typing (01/04/2019 9:26 PM EDT) athologist Signature ABORh Type O Pos [facility] Specimen Anatomical Collection Method Collection Time Receive d Time (Source) Location / / Volume Laterality Blood specimen 01/04/2019 9:26 PM 019 9:31 (specimen) EDT PM EDT Resulting Agency Comment Spec In Lab Hossein Chahal MD BLOOD BANK ORDERABLES Performing Organization Address City/State/[place] [address] Phosphorus (01/04/2019 9:25 PM EDT) athologist Signature Phosphorus 3.2 2.5 - 4.5 [facility] Specimen Anatomical Collection Method Collection Time Receive d Time (Source) Location / / Volume Laterality Blood specimen Venous Draw / 01/04/2019 9:25 PM 2018 9:35 (specimen) Unknown EDT PM EDT Resulting Agency Comment Spec In Lab Marco Rodriguez MD CHEMISTRY ORDERABLES Performing Organization Address City/State/[place] [address] (ABNORMAL) Magnesium (01/04/2019 9:25 PM EDT) athologist Signature Magnesium 0.66 (L) 0.69 - 1.07 [facility]L [facility] Specimen Anatomical Collection Method Collection Time Receive d Time (Source) Location / / Volume Laterality Blood specimen Venous Draw / 01/04/2019 9:25 PM 2018 9:35 (specimen) Unknown EDT PM EDT Resulting Agency Comment Spec In Lab Marco Rodriguez MD CHEMISTRY ORDERABLES Performing Organization Address City/[facility]/[place] [address] Scan, Peripheral Blood (01/04/2019 9:25 PM EDT) [facility] Method Time Signature Plat Estimate Increased [facility] RBC Morphology Abnormal [facility] Ovalocytes 1-5 /HPF [facility] [place] Cells 1-5 /HPF [facility] Giant Less than 1 /HPF [facility] LABORATORY Specimen Anatomical Collection Method Collection Time Receive d Time (Source) Location / / Volume Laterality Blood specimen 01/04/2019 9:25 PM 019 9:35 (specimen) EDT PM EDT Resulting Agency Comment Spec In Lab Hossein Chahal MD HEMATOLOGY ORDERABLES Performing Organization Address City/[facility]/[place] [address] (ABNORMAL) D-Dimer, Quantitative (01/04/2019 9:25 PM EDT) [facility] Method Time Signature D-Dimer, Quant 5,972 (H) 0 - 500 [facility] FEU ng/ml [facility] Comment: The D-Dimer assay is used to aid in the diagnosis of deep vein thrombosis and pulmonary embolism. A normal D-Dimer res ult (less than 500 FEU ng/ml) has a negative predictive value of approximate ly 95% for the exclusion of acute PE and DVT when there is low to moderate pr etest probability. To use age adjusted cutoff: Age x 10 ng/ml. Specimen Anatomical Collection Method Collection Time Receive d Time (Source) Location / / Volume Laterality Blood specimen Venous Draw / 01/04/2019 9:25 PM 2018 9:35 (specimen) Unknown EDT PM EDT Resulting Agency Comment Spec In Lab Ariane Johnson MD HEMATOLOGY ORDERABLES Performing Organization Address City/[facility]/[place] [address] TSH (01/04/2019 9:25 PM EDT) P athologist Signature TSH 2.90 0.27 - 4.20 [facility] mcIU/mL [facility] Specimen Anatomical Collection Method Collection Time Receive d Time (Source) Location / / Volume Laterality Blood specimen Venous Draw / 01/04/2019 9:25 PM 2018 9:35 (specimen) Unknown EDT PM EDT Resulting Agency Comment Spec In Lab Ariane Johnson MD CHEMISTRY ORDERABLES Performing Organization Address City/State/ZIP Code Phon e Number [address] Perez Tube Hold (01/04/2019 9:25 PM EDT) P athologist Signature Perez Hold Sample in [facility]ORY Specimen Anatomical Collection Method Collection Time Receive d Time (Source) Location / / Volume Laterality Blood specimen Venous Draw / 01/04/2019 9:25 PM 2018 9:36 (specimen) Unknown EDT PM EDT Hossein Chahal MD CHEMISTRY ORDERABLES Performing Organization Address City/State/ZIP Code Phon e Number [address] Gold Tube HOLD (01/04/2019 9:25 PM EDT) athologist Signature Gold Hold Sample in [facility] LABOR[facility]ORY Specimen Anatomical Collection Method Collection Time Receive d Time (Source) Location / / Volume Laterality Blood specimen Venous Draw / 01/04/2019 9:25 PM 2018 9:36 (specimen) Unknown EDT PM EDT Hossein Chahal MD CHEMISTRY ORDERABLES Performing Organization Address City/State/ZIP Code Phon e Number [address] (ABNORMAL) Differential, Automated (01/04/2019 9:25 PM EDT) Patholo gist Method Time Signature Neutrophils % 83.8 % [facility] Neutr Abs (ANC) 30.98 (H) 1.70 - [facility] 6.10 [facility] x10(3)/[facility] LABORATORY Lymphocytes % 9.3 % [facility] Lymphocytes Abs 3.4 (H) 0.9 - 3.2 [facility] x10(3)/[facility] LABORATORY Monocytes % 5.9 % [facility] Monocyte Abs 2.2 (H) 0.3 - 0.9 [facility] x10(3)/[facility] LABORATORY Eosinophils % 0.1 % [facility] Eosinophils Abs 0.0 0.0 - 0.4 [facility] x10(3)/[facility] LABORATORY Basophils % 0.3 % [facility] Basophils Abs 0.1 0.0 - 0.1 [facility] x10(3)/[facility] LABORATORY Immature Gran % 0.60 % [facility] Comment: Immature granulocytes(IG's)percentage an d absolute count will include metamyelocytes, myelocytes, and promyelo cytes. Blood smears from CBCs yielding IG's will be scanned manually for concor dance. If this scan disagrees with the automated IG or if promyelocytes are not ed, a manual differential will be performed. Irina Gran Abs 0.21 (H) 0.00 - 0.04 x10(3)/[facility] LABORATORY Specimen Anatomical Collection Method Collection Time Receive d Time (Source) Location / / Volume Laterality Blood specimen 01/04/2019 9:25 PM 019 9:35 (specimen) EDT PM EDT Resulting Agency Comment Spec In Lab Hossein Chahal MD HEMATOLOGY ORDERABLES Performing Organization Address City/State/ZIP [place] [address] (ABNORMAL) Hemogram (01/04/2019 9:25 PM EDT) P athologist Signature WBC 37.0 4.0 - 9.5 [facility] (Critical) x10(3)/[facility] LABORATORY Comment: This result has been called to MARTHA IRENE IN by Ibis Johnson on 01 04 2019 at 2216, and has been read back. RBC 4.83 4.00 - 5.21 x10(6)/[facility] LABORATORY Hemoglobin 14.6 11.7 - 15.5 gm/dL [facility] Hematocrit 44.2 35.7 - 45.8 % [facility] MCV 91.5 82.6 - 94.4 fL [facility] MCH 30.2 27.1 - 32.0 pg [facility] MCHC 33.0 31.7 - 35.0 gm/dL [facility] Platelets 463 (H) 145 - 357 x10(3)/[facility] LABORATORY RDWSD 42.6 37.0 - 46.0 fL [facility] RDWCV 12.7 11.5 - 14.1 % [facility] MPV 10.6 7.6 - 12.[address] [facility] nRBC % Auto 0.0 % [facility] nRBC Abs Auto 0.000 0.000 - 0.000 x10(3)/[facility] LABORATORY Specimen Anatomical Collection Method Collection Time Receive d Time (Source) Location / / Volume Laterality Blood specimen 01/04/2019 9:25 PM 019 9:35 (specimen) EDT PM EDT Resulting Agency Comment Spec In Lab Hossein Chahal MD HEMATOLOGY ORDERABLES Performing Organization Address City/State/ZIP [place] [address] (ABNORMAL) Troponin (01/04/2019 9:25 PM EDT) P athologist Signature Troponin-T 0.16 (H) 0.00 - [facility] 0.00 ng/mL [facility] Comment: Called by: josee, Read back by: Nica michelle, Date/Time:01/04/19 22:57. The 99th percentile for Troponin T is le ss than 0.01 ng/mL, any detectable cTnT concentration using this assay should be considered elevated. According to the third universal definit ion of myocardial infarction the following criteria with a clinical prese ntation consistent with acute myocardial ischemia meets the diagnosis for a myocardial infarction (CO). Detection of a rise and/or fall of cTnT, with at least one value greater than the 99th percentile (> or = 0.01) and wi th at least one of the following ?? Symptoms of ischemia ?? New or presumed new significant ST-se gment-T wave (ST-T) changes or new left bundle branch block (LBBB) ?? Development of pathologic Q waves in the ECG ?? Imaging evidence of new loss of viabl e myocardium or new regional wall motion abnormality ?? Identification of an intracoronary th rombus by angiography or autopsy Samples for cTnT testing should be obtai mariam serially upon first assessment and again 3 to 6 hours later. If the clinica l suspicion is high and previous samples have been negative an additional sample may be indicated. Reference: Third [place] Definition of Myocardial Infarction. Journal of the [place] [employer] 2012;60:1581-98 Specimen Anatomical Collection Method Collection Time Receive d Time (Source) Location / / Volume Laterality Blood specimen 01/04/2019 9:25 PM 019 9:35 (specimen) EDT PM EDT Resulting Agency Comment Spec In Lab Hossein Chahal MD CHEMISTRY ORDERABLES Performing Organization Address City/[facility]/[place] [address] APTT (01/04/2019 9:25 PM EDT) P athologist Signature PTT 26 25 - 37 sec [facility] Comment: The PTT is NOT appropriate for heparin m onitoring. Use the Anti-Xa level for heparin monitoring (HEP UFH) or LMWH mon itoring (HEP LMW). A PTT less than 37 seconds generally indicates adequate hem ostasis. Specimen Anatomical Collection Method Collection Time Receive d Time (Source) Location / / Volume Laterality Blood specimen 01/04/2019 9:25 PM 019 9:35 (specimen) EDT PM EDT Resulting Agency Comment Spec In Lab Hossein Chahal MD HEMATOLOGY ORDERABLES Performing Organization Address City/[facility]/[place] [address] Prothrombin Time (01/04/2019 9:25 PM EDT) athologist Signature PT 12.2 9.4 - 12.5 [facility] LABORATORY INR 1.1 [facility] Comment: An INR <2.0 indicates [...] Location / / Volume Laterality Blood specimen 01/04/2019 9:25 PM 019 9:35 (specimen) EDT PM EDT Resulting Agency Comment Spec In Lab Hossein Chahal MD HEMATOLOGY ORDERABLES Performing Organization Address City/[facility]/[place] [address] Lipase (01/04/2019 9:25 PM EDT) athologist Signature Lipase 30 0 - 60 [facility] unit/L [facility] Specimen Anatomical Collection Method Collection Time Receive d Time (Source) Location / / Volume Laterality Blood specimen 01/04/2019 9:25 PM 019 9:35 (specimen) EDT PM EDT Resulting Agency Comment Spec In Lab Hossein Chahal MD CHEMISTRY ORDERABLES Performing Organization Address City/State/[place] [address] (ABNORMAL) Hepatic Function Panel (01/04/2019 9:25 PM EDT) athologist Signature Total Protein 7.9 6.1 - 8.0 [facility] gm/dL [facility] Albumin 4.7 3.2 - 5.2 [facility] gm/dL [facility] AST 37 (H) 0 - 30 [facility] unit/L [facility] ALT 30 0 - 30 [facility] unit/L [facility] Alk Phos 129 (H) 40 - 104 [facility]L [facility] Total 1.1 0.2 - 1.3 [facility] Bilirubin mg/dL [facility] Bili, Direct 0.3 0.0 - 0.3 [facility] Specimen Anatomical Collection Method Collection Time Receive d Time (Source) Location / / Volume Laterality Blood specimen 01/04/2019 9:25 PM 019 9:35 (specimen) EDT PM EDT Resulting Agency Comment Spec In Lab Hossein Chahal MD CHEMISTRY ORDERABLES Performing Organization Address City/State/ZIP [place] [address] (ABNORMAL) Basic Metabolic Panel (non-fasting) (01/04/2019 9:25 PM EDT) P athologist Signature Glucose Lvl 453 (H) 65 - 199 [facility] mg/dL [facility] Comment: Diabetes: >=200 mg/dL plus symp toms BUN 14 8 - 18 mg/dL [facility] Creatinine 0.75 0.70 - 1.20 mg/dL [facility] Sodium 132 (L) 135 - 145 mmol/L [facility] Potassium 6.3 (Critical) 3.5 - 5.0 mmol/L [facility] Comment: Called by: jose, Read back by: Genevieve serra, Date/Time:01/04/19 22:23. Please note: ??Patients with WBC >100,00 0 may have falsely elevated Potassium levels. ??For accurate Potassium quantif ication in these patients send serum separator tube (gold top) for subsequent determinations. ??Contact the Clinical Chemistry Laboratory if there are any qu estions. Chloride 100 98 - 107 mmol/L [facility] CO2 16 (L) 22 - 31 mmol/L [facility] Anion Gap 16 (H) 5 - 15 mmol/L [facility] Calcium 10.5 8.5 - 10.5 mg/dL [facility] Estimated GFR 87 >=60 mL/min/1.73 m?? [facility] Comment: The eGFR was calculated using the CKD-EP I equation. As with all creatinine based estimates of kidney function, eGFR values calculated with the CKD-EPI equation are not accurate in patients wi th acute kidney failure, extremes of body mass or the acutely ill. http://[employer]/[facility] TULSAnk eGFR 101 >=60 mL/min/1.73 m?? [facility] Comment: The eGFR was calculated using the CKD-EP I equation. As with all creatinine based estimates of kidney function, eGFR values calculated with the CKD-EPI equation are not accurate in patients wi th acute kidney failure, extremes of body mass or the acutely ill. http://[employer]/[facility] TULSAnkf Specimen Anatomical Collection Method Collection Time Receive d Time (Source) Location / / Volume Laterality Blood specimen 01/04/2019 9:25 PM 019 9:35 (specimen) EDT PM EDT Resulting Agency Comment Spec In Lab Hossein Chahal MD CHEMISTRY ORDERABLES Performing Organization Address City/State/[place] [address] (ABNORMAL) BLOOD GAS 2 ARTERIAL (01/04/2019 9:24 PM EDT) Analysis Performed At Patho logist Time Signature pH Art 7.31 (L) 7.35 - [facility] 7.45 [facility] pCO2 Art 34 (L) 35 - 45 [facility] LABORATORY pO2 Art 188 (H) 85 - 104 [facility]ORY HCO3 Art 16.9 (L) 20.0 - [facility] 26.0 [facility] mmol/L [facility] BE Art -9.3 (L) -3.0 - 3.0 [facility] mmol/L [facility] Hgb Blood Gas 15.5 11.7 - [facility] 15.5 gm/dL [facility] O2HB Art 97.8 (H) 94.0 - [facility] 97.0 % [facility] COHB Art 0.6 % [facility] Comment: Nonsmokers: 0.5-1.5% COHB Smokers: Variable, but usually less than 10% Toxic: 20-30% COHB Lethal: Greater than 60% COHB METHB Art 0.4 <=1.5 % [facility] Na Whole Blood 135 135 - 145 mmol/L [facility] K Whole Blood 6.1 (Critical) 3.5 - 5.0 mmol/L [facility] Comment: Not Noted by instrument sterilizer. Please note: Patients with WBC >100,000 may have falsely elevated Potassium levels. Contact the Clinical Chemistry L aboratory if there are any questions. ICa Whole Blood 1.32 1.15 - 1.33 mmol/L [facility] Comment: Note: ??Total bilirubin higher than 20 m g/dL may lead to falsely low ionized calcium. CL Whole Blood 101 98 - 107 mmol/L [facility] Gluc Whole Bld 448 (H) 65 - 199 mg/dL [facility] Comment: Diabetes: >=200 mg/dL plus symp toms. Lactate WB 3.5 (H) 0.5 - 2.2 mmol/L [facility] Specimen Anatomical Collection Method Collection Time Receive d Time (Source) Location / / Volume Laterality Blood specimen 01/04/2019 9:24 PM 019 9:24 (specimen) EDT PM EDT Hossein Chahal MD CHEMISTRY ORDERABLES Performing Organization Address City/State/ZIP [place] [address] documented in this encounter Visit Diagnoses Not on filedocumented in this encounter Admitting Diagnoses Diagnosis Shock Shock, unspecified documented in this encounter Administered Medications Inactive Administered Medications - up to 3 most recent administrations Medication Order MAR Action Action Date Dose Rate Site acetaminophen (Tylenol) (32.02 Given 01/15/2019 6:31 AM EDT 1,00 0 mg mg/mL) oral liquid 1,000 mg 1,000 mg, Oral, EVERY 8 HOURS SCHEDULED, First dose on 01/05/19 at 0100, Until Discontinued, May give PO or Per Tube, Maximum dose of acetaminophen is 4000 mg from all sources in 24 hours. Should be given concomitantly if other Analgesics are ordered., Routine Given 01/14/2019 9:10 PM EDT 1,000 mg Given 01/14/2019 2:09 PM EDT 1,000 mg acetaminophen (TYLENOL) suppository 975 mg 975 mg, Rectal, EVERY 8 HOURS SCHEDULED, First dose on Sun01/05/19 at 0100, Until Discontinued, Maximum dose of acetaminophen is 4000 mg from all sources in 24 hours., Routine amitriptyline (ELAVIL) tablet 25 mg Given 01/14/2019 8:58 PM EDT 25 mg 25 mg, Oral, NIGHTLY, First dose on Sun01/12/19 at 2100, Until Discontinued, Routine Given 01/13/2019 9:18 PM EDT 25 mg Given 01/12/2019 9:22 PM EDT 25 mg bacitracin injection Given 01/07/2019 4:47 PM EDT 50,000 Units ONCE PRN, Starting on Sun01/07/19 at 1647, Until Sun01/07/19 at 1816, Intra-Operative (Intra-Procedure), Routine carvedilol (COREG) tablet 3.125 mg Given 01/15/2019 8:02 AM EDT 3.125 mg 3.125 mg, Oral, 2 TIMES DAILY WITH MEALS, First dose on Sun01/12/19 at 0830, Until Discontinued, Routine Given 01/14/2019 4:41 PM EDT 3.125 mg Given 01/14/2019 8:11 AM EDT 3.125 mg dextrose 50% intravenous solution 25-50 mL 25-50 mL (12.5-25 g), Intravenous, EVERY 1 HOUR PRN, S tarting on Sun01/13/19 at 1031, Until Sun01/15/19 at 1549, Low blood sugar, F or BG 50-70 mg/dL: Oral treatment preferred:?? If [...] the active insulin., Routine gabapentin (NEURONTIN) capsule 300 mg Given 01/15/2019 8:05 AM EDT 300 mg 300 mg, Oral, 3 TIMES DAILY, First dose (after last modification) on Sun01/14/19 at 1500, Until Discontinued, Routine Given 01/14/2019 8:58 PM EDT 300 mg Given 01/14/2019 2:10 PM EDT 300 mg glucagon (human recombinant) injection S olR 1 mg 1 mg, Intramuscular, EVERY 1 HOUR PRN, S tarting on Sun01/13/19 at 1031, Until Sun01/15/19 at 1549, Low blood sugar, For BG 50-70 mg/d [...] Buccal, EVERY 30 MIN PRN, Starting on 12/22 at 1031, Until Sun01/15/19 at 1549, Low blood sugar, For BG 50-70 mg/d [...] weight of tube = 37.5 grams., Routine haloperidol (Haldol) (2 mg/mL) oral liqu id 2 mg Given 01/13/2019 4:47 AM EDT 2 mg 2 mg, Oral, EVERY 6 HOURS PRN, Starting on Sun01/12/19 at 1303, Until Sun01/15/19 at 1549, Agitation, Routine heparin (Porcine) subcutaneous injection Given 019 6:31 AM EDT 5,000 Units 5,000 Units 5,000 Units, Subcutaneous, EVERY 8 HOURS SCHEDULED, First dose on Sun01/05/19 at 0600, Until Discontinued, Routine Given 01/14/2019 9:10 PM EDT 5,000 Units Given 01/14/2019 2:10 PM EDT 5,000 Units insulin glargine VIAL injection 12 Units Given 01/15/2019 11:22 AM EDT 12 Units 12 Units, Subcutaneous, EVERY 24 HOURS, First dose on Sun01/14/19 at 1200, Until Discontinued, Routine Given 01/14/2019 11:57 AM EDT 12 Units insulin lispro (HumaLOG) VIAL injection Given 01/15/2019 11:23 A M EDT 9 Units 3-12 Units 3-12 Units, Subcutaneous, 3 TIMES DAILY BEFORE MEALS, First dose on Sun01/13/19 at 1130, Until Discontinued, CORRECTION BOLUS Resistant to insulin obese patient or TDD (total daily dose of all insulin needed to achieve glycemic control) greater than 60 units BG 140 - 160 Give 3 units BG 161 - 200 Give 6 units BG 201 - 240 Give 9 units BG greater than 240, give 12 units and recheck BG in 2 hours.If BG less than 240 after two hours, give no insulin and resume prior schedule. If BG remains greater than 240, repeat 12 units (no more than three times) & call for new basal insulin orders. DO NOT hold if NPO, unless specifically told to do so., Routine Given 01/15/2019 6:49 AM EDT 6 Units Given 01/14/2019 4:41 PM EDT 6 Units ipratropium-albuterol (DUONEB) 0.5 mg-3 mg(2.5 Given 0 01/14/2019 2:51 AM EDT 3 mLs mg base)/3 mL nebulizer solution 3 mL 3 mL, Nebulization, 4 TIMES DAILY PRN, Starting on Sun01/13/19 at 1200, Until Sun01/15/19 at 1549, Wheezing, Routine Given 01/13/2019 12:38 PM EDT 3 mLs lactobacillus with pectin 1 capsule Given 01/15/2019 8:05 AM EDT 1 capsule 1 capsule, Oral, DAILY, First dose on Sun01/14/19 at 1215, Until Discontinued, Routine Given 01/14/2019 11:56 AM EDT 1 capsule lisinopril (PRINIVIL;ZESTRIL) tablet 5 m g Given 01/15/2019 8:05 AM EDT 5 mg 5 mg, Oral, DAILY, First dose on Sun01/13/19 at 1045, Until Discontinued, Routine Given 01/14/2019 8:10 AM EDT 5 mg Given 01/13/2019 11:41 AM EDT 5 mg loperamide (IMODIUM) capsule 2 mg Given 01/14/2019 11:57 AM EDT 2 mg 2 mg, Oral, 4 TIMES DAILY PRN, Starting on Sun01/14/19 at 1102, Until Sun01/15/19 at 1549, Diarrhea, Do not exceed 16 mg/day., Routine melatonin tablet 3 mg Given 01/14/2019 8:58 PM EDT 3 mg 3 mg, Oral, NIGHTLY, First dose on Sun01/08/19 at 2245, Until Discontinued, Routine Given 01/13/2019 9:18 PM EDT 3 mg Given 01/12/2019 9:22 PM EDT 3 mg neomycin-polymyxin B Given 01/07/2019 4:46 PM EDT 1 mL 19- Surgical Site (NEOSPORIN) irrigation solution ONCE PRN, Starting on Sun01/07/19 at 1646, Until Sun01/07/19 at 1816, Intra-Operative (Intra-Procedure) oxyCODONE (ROXICODONE) immediate release tablet Given 01/15/2019 1:15 AM EDT 5 mg 5 mg 5 mg, Oral, EVERY 4 HOURS PRN, Starting on 01/11/19 at 1036, Until Sun01/15/19 at 1549, Pain, For pain from -05/01, Routine Given 01/14/2019 8:14 AM EDT 5 mg Given 01/13/2019 10:30 PM EDT 5 mg spironolactone (ALDACTONE) tablet 25 mg Given 01/15/2019 8:05 AM EDT 25 mg 25 mg, Oral, DAILY, First dose on Sun01/12/19 at 0900, Until Discontinued, Routine Given 01/14/2019 8:14 AM EDT 25 mg Given 01/13/2019 8:32 AM EDT 25 mg traZODone (DESYREL) tablet 50 mg Given 01/14/2019 8:58 PM EDT 50 mg 50 mg, Oral, NIGHTLY, First dose on 01/12/19 at 2100, Until Discontinued, Routine Given 01/13/2019 9:17 PM EDT 50 mg Given 01/12/2019 9:21 PM EDT 50 mg documented in this encounter Active and Recently Administered Medications Times are shown in EDT. Scheduled Medication Order 01/13/2019 01/14/201901/1501/15/2019 acetaminophen (Tylenol) (32.02 mg/mL) oral liquid 1,00 0 mg(Linked Group 1) 0537 (See Alternative - Provider: Kurt Starkey RN)1345 (Given - Provider: Britt Hall RN)2116 (Not Given - Provider: Kurt Starkey RN - Reason: Patient/family refused) 0519 (Given - Provider: Kurt Starkey RN)140 (Given - Provider: Britt Hall RN)2109 (Given - Provider: Kurt Starkey RN) 0631 (Given - Provider: Kurt Starkey RN) 1,000 mg, Oral, EVERY 8 HOURS SCHEDULED, First dose on 01/05/19 at 0100, Until Discontinued, May give PO or Per Tube, Maximum dose of acetaminophen is 4000 mg from all sources in 24 hours. Should be given concomitantly if other Analgesics are ordered., Routine acetaminophen (TYLENOL) suppository 975 mg(Linked Grou p 1) 0537 (See Alternative - Provider: Kurt Starkey RN)1345 (See Alternative - Provider: Britt Hall RN)2116 (See Alternative - Provider: Kurt Starkey RN) 0519 (See Alternative - Provider: Kurt Starkey RN)1409 (See Alternative - Provider: Britt Hall RN)2109 (See Alternative - Provider: Kurt Starkey RN) 0631 (See Alternative - Provider: Kurt Starkey RN) 975 mg, Rectal, EVERY 8 HOURS SCHEDULED, First dose on 01/05/19 at 0100, Until Discontinued, Maximum dose of acetaminophen is 4000 mg from all sources in 24 hours., Routine acetaminophen (TYLENOL) tablet 1,000 mg (CANCELED)(Stacey ked Group 1) 0537 (Given - Provider: Kurt Starkey RN)1345 (See Alternative - Provider: Britt Hall RN)2116 (See Alternative - Provider: Kurt Starkey RN) 0519 (See Alternative - Provider: Kurt Starkey RN)1409 (See Alternative - Provider: Britt Hall RN)2110 (See Alternative - Provider: Kurt Starkey RN) 0631 (See Alternative - Provider: Kurt Starkey RN) 1,000 mg, Oral, EVERY 8 HOURS SCHEDULED, First dose on 01/05/19 at 0100, Until Discontinued, May give PO or Per Tube, Maximum dose of acetaminophen is 4000 mg from all sources in 24 hours., Routine amitriptyline (ELAVIL) tablet 25 mg 2117 (Given - Prov ider: Kurt Starkey RN) 2057 (Given - Provider: Kurt Starkey RN) 25 mg, Oral, NIGHTLY, First dose on 01/12/19 at 2100, Until Discontinued, Routine carvedilol (COREG) tablet 3.125 mg 0832 (Given - Provi elise: Britt Hall RN)1627 (Given - Provider: Britt Hall RN) 0811 (Given - Provider: Britt Hall RN)1641 (Given - Provider: Britt Hall RN) 0802 (Given - Provider: Padmini Andrews RN) 3.125 mg, Oral, 2 TIMES DAILY WITH MEALS , First dose on 01/12/19 at 0830, Until Discontinued, Routine ceFEPime (MAXIPIME) 2g vial attach to so dium chloride 0.9% 100 mL Mini-Bag Plus (CANCELED) 0000 (Stopped - Provider: Kurt church RN)0538 (New Bag - Provider: Kurt Starkey RN)0622 (Stopped - Provider: Kurt Starkey RN)1432 (New Bag - Provider: Britt Hall RN)1502 (Stopped - Provider: Britt Hall RN) 0607 (New Bag - Provider: Kurt church RN)0649 (Stopped - Provider: Kurt Starkey RN) 2 g, Intravenous, EVERY 8 HOURS, First d ose (after last reorder) on 01/12/19 at 2215, Until Discontinued, Administer over 30 Minutes, Indication for (Active or Suspected): GI/Intra-abdominal 2237 (New Bag - Provider: Kurt church RN)2310 (Stopped - Provider: Kurt Starkey RN) gabapentin (NEURONTIN) capsule 100 mg (CANCELED) 1141 (Given - Provider: Britt Hall RN)1410 (Given - Provider: Britt Hall RN)211 (Given - Provider: Kurt Starkey RN) 0811 (Given - Provider: Britt Hall RN) 100 mg, Oral, 3 TIMES DAILY, First dose on Sun01/13/19 at 1100, Until Discontinued, Routine gabapentin (NEURONTIN) capsule 300 mg 14 10 (Given - Provider: Britt Hall RN)205 (Given - Provider: Kurt Starkey RN) 0805 (Given - Provider: Padmini Andrews, BRYAN) 300 mg, Oral, 3 TIMES DAILY, First dose (after last modification) on Sun01/14/19 at 1500, Until Discontinued, Routine heparin (Porcine) subcutaneous injection 5,000 Units 0 538 (Given - Provider: Kurt Starkey RN)1346 (Given - Provider: Britt Hall RN)2122 (Given - Provider: Kurt Starkey RN) 0519 (Given - Provider: Kurt Starkey , BRYAN)1410 (Given - Provider: Britt Hall RN)211 (Given - Provider: Kurt Starkey RN) 0631 (Given - Provider: Kurt Starkey RN) 5,000 Units, Subcutaneous, EVERY 8 HOURS SCHEDULED, First dose on Sun01/05/19 at 0600, Until Discontinued, Routine insulin glargine VIAL injection 12 Units 1157 (Given - Provider: Britt Hall RN) 1122 (Given - Provider: Padmini Andrews, BRYAN ) 12 Units, Subcutaneous, EVERY 24 HOURS, First dose on Sun01/14/19 at 1200, Until Discontinued, Routine insulin lispro (HumaLOG) VIAL injection 2-8 Units (CAN CELED) 0653 (Given - Provider: Kurt Starkey RN) 2-8 Units, Subcutaneous, 4 TIMES DAILY B EFORE MEALS & NIGHTLY, First dose (after last modification) on Sun01/13/19 at 0730, Until Discontinued, CORRECTION BOLUS Moderate BG 140 - 160 Give 2 unit s BG 161 - 200 Give 4 units BG 201 - 240 Give 6 units BG greater than 240, give 8 units and recheck BG in 2 hours.If BG less than 240 after two hours, give no insulin and resume prior schedule. If BG re wendy greater than 240, repeat 8 units ( no more than three times) & call for new basal insulin orders. DO NOT hold if NPO, unless specifically told to do so., Routine insulin lispro (HumaLOG) VIAL injection 3-12 Units(Stacey ked Group 2) 1143 (Given - Provider: Britt Hall RN)1631 (Given - Provider: Britt Hall, BRYAN) 0650 (Given - Provider: Kurt Starkey, RN)1204 (Given - Provider: Britt Hall RN)1641 (Given - Provider: Britt Hall RN) 0649 (Given - Provider: Kurt Starkey, RN)1123 (Given - Provider: Pdamini Andrews, BRYAN) 3-12 Units, Subcutaneous, 3 TIMES DAILY BEFORE MEALS, First dose on Sun01/13/19 at 1130, Until Discontinued, CORRECTION BOLUS Resistant to insulin obese patient or TDD (total daily dose of all insul in needed to achieve glycemic control) g reater than 60 units BG 140 - 160 Give 3 units BG 161 - 200 Give 6 units BG 201 - 240 Give 9 units BG greater than 240, give 12 units and recheck BG in 2 hours.If BG less than 240 after two hours, give no insulin and resume prior schedule. If BG remains greater than 240, repeat 12 units (no more than three times) & call for new basal insulin orders. DO NOT h old if NPO, unless specifically told to do so., Routine lactobacillus with pectin 1 capsule 1156 (Given - Provider: Britt Hall, BRYAN) 0805 (Given - Provider: Padmini Andrews, BRYAN) 1 capsule, Oral, DAILY, First dose on 01/14/19 at 1215, Until Discontinued, Routine lisinopril (PRINIVIL;ZESTRIL) tablet 5 mg 1141 (Given - Provider: Britt Hall, BRYAN) 0810 (Given - Provider: Britt Hall, BRYAN) 0805 (Given - Provider: Padmini Andrews RN) 5 mg, Oral, DAILY, First dose on 12/22 at 1045, Until Discontinued, Routine magnesium sulfate 1g in dextrose 5% 100mL (COMPLETED) 1140 (New Bag - Provider: Britt Hall RN)1240 (Stopped - Provider: Britt Hall RN)1247 (New Bag - Provider: Britt Hall RN)1347 (Stopped - Provider: Britt Hall RN) 1 g, Intravenous, EVERY 2 HOURS, 2 doses , First dose on Sun01/13/19 at 1045, Last dose on Sun01/13/19 at 1245, Administer over 60 Minutes, Use TWO magnesium sulfate 1g/100 mL infusion bags to administer total of 2 grams magnesium sulfate magnesium sulfate 2 g in sterile water 50 mL (COMPLETED) 0758 (New Bag - Provider: Padmini Andrews RN)0958 (Stopped - Provider: Padmini Andrews RN) 2 g, Intravenous, ONCE, 1 dose, On Sun at 0730, Administer over 120 Minutes melatonin tablet 3 mg 2117 (Given - Provider: Kurt church RN) 205 (Given - Provider: Kurt Starkey RN) 3 mg, Oral, NIGHTLY, First dose on Sun at 2245, Until Discontinued, Routine metroNIDAZOLE (FLAGYL) 500 mg in sodium chloride 0.9% 100 mL (CANCELED) 0450 (New Bag - Provider: Kurt Starkey RN)0523 (Stopped - Provider: Kurt Starkey RN)1352 (New Bag - Provider: Britt Hall RN)1422 (Stopped - Provider: Britt Hall RN)2119 (New Bag - Provider: Kurt Starkey RN) 0519 (New Bag - Provider: Kurt Starkey RN)0559 (Stopped - Provider: Kurt Starkey RN) 500 mg, Intravenous, EVERY 8 HOURS, Firs t dose (after last reorder) on Sun01/13/19 at 0500, Until Discontinued, Administer over 30 Minutes, Indication for (Active or Suspected): Anaerobic infection-GI/Intrabdominal 2240 (Stopped - Provider: Kurt Starkey RN) potassium chloride (K-DUR/KLOR-CON) extended release tablet 40 mEq (COMPLETED) 0742 (Given - Provider: Britt Hall RN)1156 (Given - Provider: Britt Hall RN)1455 (Given - Provider: Britt Hall RN) 40 mEq, Oral, EVERY 4 HOURS, 3 doses, Fi rst dose on Sun01/14/19 at 0745, Last dose on Sun01/14/19 at 1545, 20 mEq tablet may be dissolved in water for administration, Routine potassium chloride (K-DUR/KLOR-CON) extended release tablet 40 mEq (COMPLETED) 0802 (Given - Provider: Padmini Andrews, BRYAN )1007 (Given - Provider: Padmini Andrews RN) 40 mEq, Oral, EVERY 2 HOURS, 2 doses, Fi rst dose on Sun01/15/19 at 0730, Last dose on Sun01/15/19 at 0930, 20 mEq tablet may be dissolved in water for administration, Routine potassium chloride (Kayciel) (1.33 mEq/mL) oral liquid 40 mEq (COMPLETED) 1142 (Given - Provider: Britt Hall RN) 40 mEq, Oral, ONCE, On Sun01/13/19 at 1030, 1 dose potassium, sodium phosphates (NEUTRA-GAGAN S) 280-160-250 mg oral packet 3 g () 0831 (Given - Provider: Varun Blanc N)1346 (Given - Provider: Britt Hall RN)1627 (Given - Provider: Britt Hall RN)2118 (Given - Provider: Kurt Starkey RN) 0810 (Given - Provider: Britt Hall RN) 3 g, Oral, 4 TIMES DAILY, 8 doses, First dose on Sun01/12/19 at 1345, Last dose on Sun01/14/19 at 0900, Take with full glass of water, Routine spironolactone (ALDACTONE) tablet 25 mg 0832 (Given - Provider: rBitt Hall RN) 0814 (Given - Provider: Britt Hall RN) 0805 (Given - Provider: Padmini Andrews RN) 25 mg, Oral, DAILY, First dose on Sun at 0900, Until Discontinued, Routine traZODone (DESYREL) tablet 50 mg 2116 (Given - Provider: Janeth Starkey, RN) 2057 (Given - Provider: Kurt Starkey, RN) 50 mg, Oral, NIGHTLY, First dose on 01/12/19 at 2100, Until Discontinued, Routine PRN Medication Order 01/13/2019 01/14/2019 01/15/2019 dextrose 50% intravenous solution 25-50 mL(Linked Group 3) 25-50 mL (12.5-25 g), Intravenous, EVERY 1 HOUR PRN, Starting on Sun01/13/19 at 1031, Until Sun01/15/19 at 1549, Low blood sugar, For BG 50-70 mg/dL: Oral treatment preferred:?? If able to drink, giv e 120 mL Juice or Regular (not diet) sod a OR If NPO, give 15 gram glucose 40% oral gel massaged into buccal mucosa OR if unconscious or uncooperative, give 12.5 gram (25 mL) Dextrose 50% IV OR, if no IV access, give 1 mg Glucagon IM. For B G less than 50 mg/dL: Oral treatment preferred:?? If able to drink, give 240 mL Juice or Regular (not diet) soda OR If NPO, give 30 gram glucose 40% oral gel mass aged in buccal mucosa OR if unconscious or [...] a central line. For persistent hypoglycemia, consider longer-act ing treatment for the duration of the active insulin., Routine glucagon (human recombinant) injection SolR 1 mg(Linked Group 3) 1 mg, Intramuscular, EVERY 1 HOUR PRN, S tarting on Sun01/13/19 at 1031, Until Sun01/15/19 at 1549, Low blood sugar, For BG 50-70 mg/dL: Oral treatment preferred:?? If able to drink, give 120 mL Juice or Regular (not diet) soda OR If NPO, g kayla 15 gram glucose 40% oral gel massaged [...] in buccal mucosa OR if unconscious or uncooperati ve, give 25 gram (50 mL) Dextrose 50% IV OR, if no IV access, give 1 mg Glucagon IM. Recheck BG in 30 minutes. May repeat juice, gel, dextrose or glucagon once per episode. To avoid extravasation, p ush Dextrose 50% SLOWLY (3 mL over 1 minute) in a patent, running IV, preferably a central line. For persistent hypoglycemia, consider longer-acting treatment for the duration of the active insulin., Routine glucose (GLUTOSE) 40% oral gel(Linked Group 3) 15-30 g, Buccal, EVERY 30 MIN PRN, Start ing on Sun01/13/19 at 1031, Until Sun01/15/19 at 1549, Low blood sugar, For BG 50-70 mg/dL: [...] Glucagon IM. For BG less than 50 mg/ dL: Oral treatment preferred:?? If able to drink, give 240 mL Juice or Regular (not diet) soda OR If NPO, give 30 gram glucose 40% oral gel massaged in buccal muc moses OR if unconscious or uncooperative, give 25 [...] the duration of the active insulin. 1 tu be contains 15 grams of glucose (net weight of tube = 37.5 grams., Routine haloperidol (Haldol) (2 mg/mL) oral liquid 2 mg 0350 ( Not Given - Provider: Kurt Starkey RN - Reason: See comment - Comment: attempted to give for agitation, attempting to get up but patient refused)0447 (Given - Provider: Kurt Starkey, RN) 2 mg, Oral, EVERY 6 HOURS PRN, Starting on 01/12/19 at 1303, Until Sun01/15/19 at 1549, Agitation, Routine ipratropium-albuterol (DUONEB) 0.5 mg-3 mg(2.5 mg base)/3 mL nebulizer solution 3 mL 1238 (Given - Provider: Britt Hall RN) 0251 (Given - Provider: Kurt Starkey RN) 3 mL, Nebulization, 4 TIMES DAILY PRN, S tarting on 01/13/19 at 1200, Until Sun01/15/19 at 1549, Wheezing, Routine loperamide (IMODIUM) capsule 2 mg 1157 (Given - Provider: Britt Hall, BRYAN) 2 mg, Oral, 4 TIMES DAILY PRN, Starting on 01/14/19 at 1102, Until Sun01/15/19 at 1549, Diarrhea, Do not exceed 16 mg/day., Routine oxyCODONE (ROXICODONE) immediate release tablet 5 mg 2 230 (Given - Provider: Kurt Starkey RN) 0814 (Given - Provider: Britt Hall RN) 0115 (Given - Provider: Kurt Starkey, BRYAN) 5 mg, Oral, EVERY 4 HOURS PRN, Starting on 01/11/19 at 1036, Until Sun01/15/19 at 1549, Pain, For pain from -05/01, Routine Linked Groups Order Group 1: acetaminophen (TYLENOL) tablet 1,000 mg (CANCELED)Jump to med 1,000 mg, Oral, EVERY 8 HOURS SCHEDULED, First dose on 01/05/19 at 0100, Until Discontinued
May give PO or Per Tube, Maximum dose of acetaminophen is 4000 mg from all sources in 24 hours.
Routine Or acetaminophen (Tylenol) (32.02 mg/mL) oral liquid 1,000 mgJump to med 1,000 mg, Oral, EVERY 8 HOURS SCHEDULED, First dose on Sun01/05/19 at 0100, Until Discontinued
May give PO or Per Tube, Maximum dose of acetaminophen is 4000 mg from all sources in 24 hours.&am p;nbsp;Should be given concomitantly if other Analgesics are ordered.
Routine Or acetaminophen (TYLENOL) suppository 975 mgJump to med 975 mg, Rectal, EVERY 8 HOURS SCHEDULED, First dose on Sun01/05/19 at 0100, Until Discontinued
Maximum dose of acetaminophen is 4000 mg from all sources in 24 hours.
Routine Group 2: POCT Fingerstick Glucose (CANCELED) Routine, 4 TIMES DAILY BEFORE MEALS & AT BEDTIME, First occurrence on Sun01/13/19 at 1100, Until Specified
Consider choosing FOUR TIMES A DAY BEFORE MEALS AND AT BEDTIME as frequency fo r: Patients who have a good hypoglycemia awareness: -Patients who are eating meals during the day and sleeping at night -Patient who are otherwise stable And insulin lispro (HumaLOG) VIAL injection 3-12 UnitsJump to med 3-12 Units, Subcutaneous, 3 TIMES DAILY BEFORE MEALS, First dose on Sun01/13/19 at 1130, Until Discontinued
CORRECTION BOLUS Resistant to insulin obese patient or TDD (to britney daily dose of all insulin needed to achieve glycemic control) greater than 60 units BG 140 - 160 Give 3 units BG 161 - 200 Give 6 units BG 201 - 240 Give 9 units BG greater than 240, give 12 units and recheck BG in 2 hours.If BG less than 240 after two hours, give no insulin and resume prior schedule. If BG remains greater nova n 240, repeat 12 units (no more than thr ee times) & call for new basal insulin orders. DO NOT hold if NPO, unless specifically told to do so.
Routine Group 3: glucose (GLUTOSE) 40% oral gelJump to med 15-30 g, Buccal, EVERY 30 MIN PRN, Start ing on Sun01/13/19 at 1031, Until Sun01/15/19 at 1549, Low blood sugar
For BG 50-70 mg/dL: Oral treatment preferred:?? If able to drink, give 120 mL J uice or Regular (not diet) soda OR If GARMENT TURNER O, give 15 gram glucose 40% oral gel massaged into buccal mucosa OR if unconscious or uncooperative, give 12.5 gram (25 mL) Dextrose 50% IV OR, if no IV access, g kayla 1 mg Glucagon IM. For BG le ss than 50 mg/dL: Oral treatment preferred:?? If able to drink, give 240 mL Juice or Regular (not diet) soda OR If NPO, give 30 gram glucose 40% oral gel mass aged in buccal mucosa OR if unconscious or uncooperative, give 25 gram (50 mL) Dextrose 50% IV OR, if no IV access, give 1 mg Glucagon IM. Recheck BG in 30 minutes. May repeat juice, gel, dex trose or glucagon once per episode. &nbs p;To avoid extravasation, push Dextrose 50% SLOWLY (3 mL over 1 minute) in a patent, running IV, preferably a central line. For persistent hypo glycemia, consider longer-acting treatme nt for the duration of the active insulin. 1 tube contains 15 grams of glucose (net weight of tube = 37.5 grams.
Routine Or dextrose 50% intravenous solution 25-50 mLJump to med 25-50 mL (12.5-25 g), Intravenous, EVERY 1 HOUR PRN, Starting on Sun01/13/19 at 1031, Until Sun01/15/19 at 1549, Low blood sugar
For BG 50-70 mg/dL: Oral treatment preferred:?? If able to dr ink, give 120 mL Juice or Regular (not d iet) soda OR If NPO, give 15 gram [...] BG in 30 minutes. May repe at juice, gel, dextrose or glucagon once per episode. To avoid extravasation, push Dextrose 50% SLOWLY (3 mL over 1 minute) in a patent, running IV, preferably a central line. F or persistent hypoglycemia, consider karen dana-acting treatment for the duration of the active insulin.
Routine Or glucagon (human recombinant) injection SolR 1 mgJump to med 1 mg, Intramuscular, EVERY 1 HOUR PRN, S tarting on Sun01/13/19 at 1031, Until Sun01/15/19 at 1549, Low blood sugar
For BG 50-70 mg/dL: Oral treatment preferred:?? If able to drink, give 120 mL Juice or Regular (not diet) soda OR I f NPO, give 15 gram glucose 40% oral gel massaged into buccal mucosa OR if unconscious or uncooperative, give 12.5 gram (25 mL) Dextrose 50% IV OR, if no IV acces s, give 1 mg Glucagon IM. For B G less than 50 mg/dL: Oral treatment preferred:?? If able to drink, give 240 mL Juice or Regular (not diet) soda OR If NPO, give 30 gram glucose 40% oral gel massaged in buccal mucosa OR if unconsci ous or uncooperative, give 25 gram (50 mL) Dextrose 50% IV OR, if no IV access, give 1 mg Glucagon IM. Recheck BG in 30 minutes. May repeat juice, gel, dextrose or glucagon once per episode. To avoid extravasation, push Dextrose 50% SLOWLY (3 mL over 1 minute) in a patent, running IV, preferably a central line. For persistent hypoglycemia, consider longer-acting dolly atment for the duration of the active insulin.
Routine documented in this encounter Care Teams Chief Medical Officer Relationship Specialty Start Date End Date Albert Zuleta MD PCP - General Family Medicine 01/17/17 10/26/21 [address] [place] [id number] documented as of this encounter
--- OUTSIDE RECORDS SUMMARY | 2022-02-08 01:54 | XMS_ITS | Encounter Summary ---
:1960 Author Organization [facility] [place] [address] Care Team Providers Name Role Phone Albert Zuleta MD Primary Care Provider Reason for Visit Auth/Cert Specialty Diagnoses / Procedures Referred By Contact Refer red To Contact Diagnoses Shock Other cardiomyopathy Referral ID Status Reason Start Date Expiration Date Visits Requ ested Visits Authorized [id number] 1 1 Encounter Details Date Type Department Care Team Description 01/05/2019 Anesthesia Event Main Operating Room Oral Kaminski MD [facility] [place] [address] Hailey [facility] Viky Chung MD [facility] [place] [address] [place] [address] Anesthesia Record Procedure Summary Procedure Name Responsible Anesthesia Start Anesthesia Stop Time Anesthesiologist Time @EXPLORATORY Eduardo Kaminski MD 01/05/19 01301/05/193 LAPAROTOMY, WITH/WITHOUT BIOPSY(S) (WRVU 12.54) (N/A Abdomen) Events Date Time Event Comment 01/05/2019 0133 Start 0134 Transport 0139 AN Verify 0139 An Start Data 0145 An Induction 0147 Anesthesia Ready 0206 Procedure Start 025 Procedure Stop 0259 an stop data 0259 Transport 0307 Recovery or ICU Handoff Patient care was transferred to the destination unit staff after review of the patient's medica l history, current anesthetic/surgi beverley status and plan, according to the Provider Handoff Checklist. 0313 Stop 0328 Name Total fentaNYL 100 mcg Rocuronium 100 mg NORepinephrine 16 mcg/mL (standard ADULT and Pedi grea ter than 20 kg) 3,705 mcg infusion insulin regular human (HumuLIN;NovoLIN) 1unit/mL in so dium chloride 0.9% 19.25 Units infusion insulin regular human (HumuLIN;NovoLIN) 1 unit/mL in s odium chloride 0.9% 20 Units BOLUS 0-8 Units propofol (DIPRIVAN) infusion 47.46 mg Propofol INF 145.22 mg Esmolol 50 mg Vasopressin INF 6.14 Units NORepinephrine 16 mcg EPINEPHrine 2 mg in dextrose 5% 250 mL infusion 312 mc g hydrocortisone 100 mg Lactated Ringers 1,500 mL Agents Name O2 Air N2O Isoflurane (et) Blood No blood administrations on file. [...] present upon Alon Mathias RN Ayotte, Anne L, RN assessment; 03/07/19 PIV 11/28/18; 0935; median 11/28/18 0935 by 01/05/19 0800 by cubital vein Zeenat Jaquez Ciaran F, (antecubital fossa), RN left; [id number] catheter system; 22 gauge, 1 in length; tolerated well; 01/05/19; 0800 CVC Single/Intro. 01/04/19; internal 01/04/19 0000 by 01/06/19 1 700 by jugular vein, right; Ryann Garrett, Concha Rg RN introducer; Ultrasound Guidance; 01/06/19; 1700 Peripheral IV Line - 01/04/19; (PERL SOFTWARE ENGINEER); median 01/04/19 0000 by 1656 by Double Lumen cubital vein Iman Galicia, Patricia Joiner, RN (antecubital fossa), RN right, basilic vein (medial side of arm), right; udpi-lym-odzrxt catheter system; 20 gauge; 01/10/19; 1656 Arterial Line 01/04/19; radial 01/04/19 0000 by 01/05/19 1045 by artery, right; Iman Galicia Moloney, Ci aran F, continuous blood RN RN pressure monitoring; Dr. [place]; Sterile Prep, Sterile Gloves; no longer good waveform, weaned off pressers; catheter intact, no longer indicated; 01/05/19; 1045 ETT ETT Type: Cuffed; ETT 01/04/19 2200 by 01/08/19 1226 by Size: 7.5 mm; ETT Rah Cruz Rubendall, Sean N, Placement Verified By: SUPPORTABILITY ENGINEER SUPPORTABILITY ENGINEER Auscultation, Capnometry, Visual; Secured at Teeth: 23 cm Urethral Catheter 01/04/19; 2235; 01/04/19 2235 by 01/09/19 1730 by Physician order; Close Ryann Garrett, Ted Martinez, RN urine output monitoring: critically ill patient, Physician order; indwelling catheter with core temperature probe; 14; inserted at this facility; 1; 10; 10; none; drainage bag to dependent drainage; 01/09/19; 1730 (per day shift RN) PA Catheter 01/05/19; 0000; jugular 01/05/19 0000 by 9 1200 by vein, right internal; Albina Barrera, Ivan Carvajal F, continuous hemodynamic RN RN catheter; hemodynamic monitoring; no longer indicated, catheter intact; 01/05/19; 1200 Incision 01/05/19; 0205; 01/05/19 0205 by 03/07/19 0000 b y abdomen; 03/07/19 [place] RN Ayotte, An ne L RN documented in this encounter Social History Tobacco [...] Postprocedure Evaluation - Eduardo Kaminski MD - 01/05/2019 3:24 AM EDT Department of Anesthesiology Post-procedure Note Patient: Blossom Samayoa Procedure Summary Date: 01/05/19 Room / Location: [address] MAIN OR Anesthesia Start: 132 Anesthesia Stop: 312 Procedures: @EXPLORATORY LAPAROTOMY, WITH/WITHOUT BIOPSY(S) (WRVU 12.54) (N/A Abdomen) @LYSIS OF ADHESIONS, ABD. (WRVU 18.46) (N/A Abdomen) Diagnosis: (bowel ischemia) Surgeon: Ace Henry MD Responsible Provider: Eduardo Kaminski MD Anesthesia Type: general ASA Status: 4 - Emergent All Anesthesia Providers: Anesthesiologist: Eduardo Kaminski MD Loan Secretary: Albert Soares MD; Viky Chung MD Vitals Value Taken Time BP Temp Pulse Resp 22 01/05/2019 3:23 AM SpO2 Pain Level Vitals shown include unvalidated device data. Patient Location: ICU Level of Consciousness: Sedated (Pharmacologic/Intentional) Pain Management: Satisfactory Analgesia PONV: None Cardiovascular Status: Hypotension (received treatment) Respiratory Status: Intubated/Ventilated Postoperative Fluid Status: Intravascular EUvolemia Possible Anesthetic Complications: NONE apparent at time of evaluation Final Primary Anesthesia Type: General (The anesthetic type performed was the same as planned.) Comments: Anesthesia Postprocedure Evaluation - Albert Soares MD - 01/05/2019 3:22 AM EDT Department of Anesthesiology Post-procedure Note Patient: Blossom Samayoa Procedure Summary Date: 01/05/19 Room / Location: [address] MAIN OR Anesthesia Start: 132 Anesthesia Stop: 312 Procedures: @EXPLORATORY LAPAROTOMY, WITH/WITHOUT BIOPSY(S) (WRVU 12.54) (N/A Abdomen) @LYSIS OF ADHESIONS, ABD. (WRVU 18.46) (N/A Abdomen) Diagnosis: (bowel ischemia) Surgeon: Ace Henry MD Responsible Provider: Eduardo Kaminski MD Anesthesia Type: general ASA Status: 4 - Emergent All Anesthesia Providers: Anesthesiologist: Eduardo Kaminski MD Loan Secretary: Albert Soares MD; Viky Chnug MD Vitals Value Taken Time BP Temp Pulse Resp 22 01/05/2019 3:22 AM SpO2 Pain Level Vitals shown include unvalidated device data. Patient Location: ICU Level of Consciousness: Sedated (Pharmacologic/Intentional) Pain Management: Satisfactory Analgesia PONV: None Cardiovascular Status: Hypotension (received treatment) Respiratory Status: Intubated/Ventilated Postoperative Fluid Status: Intravascular EUvolemia Possible Anesthetic Complications: NONE apparent at time of evaluation Final Primary Anesthesia Type: General (The anesthetic type performed was the same as planned.) Comments: Anesthesia Preprocedure Evaluation - Eduardo Kaminski MD - 01/05/2019 3:19 AM EDT Pre-Anesthesia Evaluation for: Blossom Samayoa a 58 y.o. female. Procedure(s): @EXPLORATORY LAPAROTOMY, WITH/WITHOUT BIOPSY(S) (WRVU 12.54) @LYSIS OF ADHESIONS, ABD. (WRVU 18.46) Patient Active Problem List Diagnosis ??? Shock [...] ??? CHF (congestive heart failure) diag 2016 [facility] ??? Chronic lung disease sarcoidosis ??? [...] failure 'don't know if it's failure ??? 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 Mental health problem ??? Obstructive sleep apnea diag 2007 ??? Osteoma of ear canal ??? Vertigo balance prob,last fall early Jun. Past Surgical History: Procedure Laterality Date ??? PRG ECHOENCEPHALOGRAPH REAL TIME Left 11/07/2018 ULTRASOUND USE (WRVU 0.63) performed by Crow Galvin Jr., MD at [facility] MAIN OR ??? PRG FLUOROSCOPY EXAM UP TO 1 HR PHY OR OTH HLTH CARE PROV N/A 09/26/2018 FLUOROSCOPY (WRVU 0.17) performed by Crow Galvin Jr., MD at [facility] OR ??? PRG FLUOROSCOPY EXAM UP TO 1 HR PHY OR OTH HLTH CARE PROV N/A 11/07/2018 FLUOROSCOPY (WRVU 0.17) performed by Crow Galvin Jr., MD at [facility] OR ??? PRG US GUIDE INTRAOP Right 09/26/2018 ULTRASONIC GUIDANCE, INTRAOP (WRVU 1.2) performed by Crow Galvin Jr., MD at [facility] MAIN OR ? ? PRO CYSTO W URETEROSCOPY &/OR PYELOSCOPY, DX Right 09/26/2018 CYSTOURETEROSCOPY, DIAGNOSTIC (WRVU 5.75) performed by Crow Galvin Jr., MD at [facility] OR ? ? PRO CYSTO W URETEROSCOPY &/OR PYELOSCOPY, DX Left 11/07/2018 CYSTOURETEROSCOPY, DIAGNOSTIC (WRVU 5.75) performed by Crow Galvin Jr., MD at [facility] OR ??? PRO CYSTOSCOPY, INSERT URETERAL STENT Right 07/10/2018 CYSTO, STENT PLACEMENT (WRVU 2.82) performed by Viky Sears MD at [facility] OR ??? PRO CYSTOSCOPY, REMV CALCULUS, COMPLIC Right 09/26/2018 CYSTO, REMOVAL OF STENT, FOREIGN BODY, CALCULUS, COMPLICATED (WRVU 5.2) performed by Crow Galvin MD at [facility] MAIN OR ??? PRO CYSTOURETHROSCOPY, URETER CATHETER Right 07/10/2018 CYSTO, RETROGRADE, URETEROPYELOGRAPHY (WRVU 2.37) performed by Viky Sears MD at [facility] OR ??? PRO CYSTOURETHROSCOPY, URETER CATHETER Right 09/26/2018 CYSTO, RETROGRADE, URETEROPYELOGRAPHY, W/PCNL (WRVU 2.37) performed by Crow Galvin Jr., MD at [facility] OR ? ? PRO PERCUTANEOUS NEPHROSTOLITHOTOMY/PYELOSTOLITHOTOMY > 2 CM Right 09/26/2018 NEPHROLITHOTOMY, (PCNL) PERCUTANEOUS, OVER 2CM (WRVU 23.5) performed by Crow Galvin Jr., MD at [facility] OR ? ? PRO PERCUTANEOUS NEPHROSTOLITHOTOMY/PYELOSTOLITHOTOMY > 2 CM Left 11/07/2018 NEPHROLITHOTOMY, (PCNL) PERCUTANEOUS, OVER 2CM (WRVU 23.5) performed by Crow Galvin Jr., MD at [facility] OR ? ? PRO PLMT NEPHROSTOMY CATH PRQ NEW ACCESS RS&I Right 09/26/2018 NEPHROSTOMY CATHETER, PERC, INC DX NEPHROSTOGRAM/URETEROGRAM, IMG GUIDANCE (WRVU 4.25) performed byCrow Galvin Jr., MD at [facility] MAIN OR ? ? PRO PLMT NEPHROSTOMY CATH PRQ NEW ACCESS RS&I Left 11/07/2018 NEPHROSTOMY CATHETER, PERC, INC DX NEPHROSTOGRAM/URETEROGRAM, IMG GUIDANCE (WRVU 4.25) performed Crow Snyder Jr., MD at [facility] MAIN OR ??? PRO RENAL ENDOSCOPY, TREATMENT Left 11/07/2018 RENAL ENDOSCOPY W\FULG, W\WO\BX, VIA NEPHROSTOMY (WRVU 6.61) performed by Crow Galvin Jr., MD [facility] MAIN OR Social History Tobacco Use ??? [...] been reviewed. Physical Exam: Most Recent Vitals: 01/05/19 0127 BP: Pulse: Resp: 23 Temp: SpO2: Body mass index is 47.85 kg/m??. Height: 170 cm (5' 6.93) Weight: (!) 138.3 kg (304 lb 14.3 oz) Airway Assessment: Mallampati: (Unable to Assess) Intubated with 7.5 ETT Cardiovascular Assessment: Rhythm: regular Rate: abnormal Pulmonary Assessment: (+) rales Dental Assessment: Misc Assessment: IV access: Central line, A-line and Peripheral line Anesthesia Plan: ASA 4 emergent general, with a(n) inhalational induction Blossom Samayoa is a 58 y.o. 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 with acute hypoxic respiratory failure and shock. She is presenting for the following procedure(s): Procedure(s): @EXPLORATORY LAPAROTOMY, WITH/WITHOUT BIOPSY(S) (WRVU 12.54) @LYSIS OF ADHESIONS, ABD. (WRVU 18.46) Allergies: -- Anafranil (Clomipramine) -- give me the flu -- Augmentin (Amoxicillin-Pot Clavulanate) -- Hives and Itching -- Cis Free Text Allergy -- Ketamine. CIS - hallucinations -- Erythromycin -- Hives and Itching -- Lidocaine Hcl (Local Anesth.) (Procedural Tray) -- Itching and Other (See Comments) -- Lidocaine 2% topical anesthetic jelly. Causes itching and burning -- Macrobid (Nitrofurantoin Monohyd/M-Cryst) -- Causes depression -- Sulfa (Sulfonamide Antibiotics) -- Hives Labs: 01/04/19 11/08/18 11/07/18 2125 0156 1435 WBC 37.0* 14.1* 7.8 HGB 14.6 11.1* 10.9* HCT 44.2 33.8* 33.9* PLATELET 463* 251 213 01/04/19 11/08/18 11/07/18 2125 0156 1435 NA 132* 136 136 K 6.3* 4.9 4.8 CL 100 103 102 CO2 16* 20* 21* BUN 14 15 14 CREATININE 0.75 0.74 0.79 01/04/19 07/22/18 07/09/18 2125 1803 1950 AST 37* 31* 32* ALT 30 20 25 ALKPHOS 129* 77 73 BILITOT 1.1 0.8 1.2 BILIDIR 0.3 0.2 0.3 01/04/19 2125 PT 12.2 INR 1.1 PTT 26 Lab Results Component Value Date ABORH O Pos 01/04/2019 Plan is for GA with existing ETT and lines, standard ASA monitors. Albert Soares MD PGY-3, Rigging Loft Mechanic Pager #[phone] Informed Consent: Anesthetic plan and risks discussed with healthcare power of plant guide. Use of blood products discussed with healthcare power of plant guide who. Plan discussed with resident and attending. PAT Clinic Note Anesthesia Preprocedure Evaluation - Eduardo Kaminski MD - 01/05/2019 3:18 AM EDT Pre-Anesthesia Evaluation for: Blossom Samayoa a 58 y.o. female. Procedure(s): @EXPLORATORY LAPAROTOMY, WITH/WITHOUT BIOPSY(S) (WRVU 12.54) @LYSIS OF ADHESIONS, ABD. (WRVU 18.46) Patient Active Problem List Diagnosis ??? Shock [...] ??? CHF (congestive heart failure) diag 2017 [facility] ??? Chronic lung disease sarcoidosis ??? [...] failure 'don't know if it's failure ??? 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 Mental health problem ??? Obstructive sleep apnea diag 2007 ??? Osteoma of ear canal ??? Vertigo balance prob,last fall early Jun. Past Surgical History: Procedure Laterality Date ??? PRG ECHOENCEPHALOGRAPH REAL TIME Left 11/07/2018 ULTRASOUND USE (WRVU 0.63) performed by Crow Galvin Jr., MD at [facility] OR ??? PRG FLUOROSCOPY EXAM UP TO 1 HR Y OR OTMEMORIAL HOSPITAL CARE PROV N/A 09/26/2018 FLUOROSCOPY (WRVU 0.17) performed by Crow Galvin Jr., MD at [facility] OR ??? PRG FLUOROSCOPY EXAM UP TO 1 HR PHY OR OTMEMORIAL HOSPITAL CARE PROV N/A 11/07/2018 FLUOROSCOPY (WRVU 0.17) performed by Crow Galvin Jr., MD at [facility] OR ??? PRG US GUIDE INTRAOP Right 09/26/2018 ULTRASONIC GUIDANCE, INTRAOP (WRVU 1.2) performed by Crow Galvin Jr., MD at [facility] OR ? ? PRO CYSTO W URETEROSCOPY &/OR PYELOSCOPY, DX Right 09/26/2018 CYSTOURETEROSCOPY, DIAGNOSTIC (WRVU 5.75) performed by Crow Galvin Jr., MD at [facility] OR ? ? PRO CYSTO W URETEROSCOPY &/OR PYELOSCOPY, DX Left 11/07/2018 CYSTOURETEROSCOPY, DIAGNOSTIC (WRVU 5.75) performed by Crow Galvin Jr., MD at [facility] OR ??? PRO CYSTOSCOPY, INSERT URETERAL STENT Right 07/10/2018 CYSTO, STENT PLACEMENT (WRVU 2.82) performed by Viky Sears MD at [facility] OR ??? PRO CYSTOSCOPY, REMV CALCULUS, COMPLIC Right 09/26/2018 CYSTO, REMOVAL OF STENT, FOREIGN BODY, CALCULUS, COMPLICATED (WRVU 5.2) performed by Crow Galvin MD at [facility] OR ??? PRO CYSTOURETHROSCOPY, URETER CATHETER Right 07/10/2018 CYSTO, RETROGRADE, URETEROPYELOGRAPHY (WRVU 2.37) performed by Viky Sears MD at [facility] MAIN OR ??? PRO CYSTOURETHROSCOPY, URETER CATHETER Right 09/26/2018 CYSTO, RETROGRADE, URETEROPYELOGRAPHY, W/PCNL (WRVU 2.37) performed by Crow Galvin Jr., MD at [facility] MAIN OR ? ? PRO PERCUTANEOUS NEPHROSTOLITHOTOMY/PYELOSTOLITHOTOMY > 2 CM Right 09/26/2018 NEPHROLITHOTOMY, (PCNL) PERCUTANEOUS, OVER 2CM (WRVU 23.5) performed by Crow Galvin Jr., MD at [facility] MAIN OR ? ? PRO PERCUTANEOUS NEPHROSTOLITHOTOMY/PYELOSTOLITHOTOMY > 2 CM Left 11/07/2018 NEPHROLITHOTOMY, (PCNL) PERCUTANEOUS, OVER 2CM (WRVU 23.5) performed by Crow Galvin Jr., MD at [facility] MAIN OR ? ? PRO [facility] NEPHROSTOMY CATH PRQ NEW ACCESS RS&I Right 09/26/2018 NEPHROSTOMY CATHETER, PERC, INC DX NEPHROSTOGRAM/URETEROGRAM, IMG GUIDANCE (WRVU 4.25) performed byCrow Galvin Jr., MD at [facility] MAIN OR ? ? PRO PLMS NEPHROSTOMY CATH PRQ NEW ACCESS RS&I Left 11/07/2018 NEPHROSTOMY CATHETER, PERC, INC DX NEPHROSTOGRAM/URETEROGRAM, IMG GUIDANCE (WRVU 4.25) performed byCrow Galvin Jr., MD at [facility] MAIN OR ??? PRO RENAL ENDOSCOPY, TREATMENT Left 11/07/2018 RENAL ENDOSCOPY W\FULG, W\WO\BX, VIA NEPHROSTOMY (WRVU 6.61) performed by Crow Galvin Jr., MD [facility] MAIN OR Social History Tobacco Use ??? [...] been reviewed. Physical Exam: Most Recent Vitals: 01/05/19 0127 BP: Pulse: Resp: 23 Temp: SpO2: Body mass index is 47.85 kg/m??. Height: 170 cm (5' 6.93) Weight: (!) 138.3 kg (304 lb 14.3 oz) Airway Assessment: Mallampati: (Unable to Assess) Cardiovascular Assessment: Rhythm: regular Rate: abnormal Pulmonary Assessment: (+) rales Dental Assessment: Misc Assessment: Patient is wearing No contact(s). IV access: Peripheral line, Central line and A-line Other exam findings: Intubated Anesthesia Plan: ASA 4 emergent general, with a(n) intravenous induction Region - Other Informed Consent: Plan discussed with resident. PAT Clinic Note PRELIMINARY (based off chart review) Attending NOTE Brief HPI: 58 y.o. with VDRF/shock transferred from OSH with concerns for acute abd/SBO and intubated in ED on arrival for flash pulmonary edema to OR for exp lap. Patient noted to have afib and new onset CHF (EF 15% on bedside echo on admission). Diagnosis ??? Cardiomyopathy ??? Type 2 diabetes mellitus, without long-term current use of insulin ??? LBBB (left bundle branch block) ??? Morbid obesity with BMI of 50.0-59.9, adult ??? Sarcoidosis ??? Nephrolithiasis ??? Ventral hernia ??? HTN (hypertension) ??? Gastroesophageal reflux ??? PTSD (post-traumatic stress disorder) ??? COPD (chronic obstructive pulmonary disease) ??? Asthma ??? Anxiety ??? Depression ??? Former smoker ??? Chronic prescription opiate use ??? Renal calculus, left ??? Shock Past Medical History: Diagnosis Date ??? Asthma [...] failure 'don't know if it's failure ??? 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 Mental health problem ??? Obstructive sleep apnea diag 2007 ??? Osteoma of ear canal ??? Vertigo balance prob,last fall early Jun. LABS: Lab Results Component Value Date HGB 14.6 01/04/2019 PLATELET 463 (H) 01/04/2019 INR 1.1 01/04/2019 NA 132 (L) 01/04/2019 K 6.3 (CRIT) 01/04/2019 CREATININE 0.75 01/04/2019 Type and Screen: Lab Results Component Value Date ABORH O Pos 01/04/2019 Past anesthetic problems: none per her sister Previous airway notes (on eDH): none Anesthetic Plan: GETA; pressor support; Discussed plan with patient's sister via telephone. Verbal consent form on chart. Monitoring: Standard ASA monitors, LINDA aguero catheter placed in MICU documented in this encounter Plan of Treatment Upcoming Encounters Date Type Specialty Care Team Description 03/15/2022 Office Visit Neurology Ryann Barfield APRN [facility] [address] [place] [address] 03/23/2022 Appointment Radiology Hailey Mcclendon MD [facility] [address] [place] [address] 03/23/2022 Laboratory Appointment Lab 03/23/2022 Office Visit Gastroenterology Hailey Mcclendon MD [facility] [address] [place] [address] 05/23/2022 Procedure visit Maxillofacial Surgery Corby Montes MD [facility] [address] [place] [address] documented as of this encounter Visit Diagnoses Not on filedocumented in this encounter Administered Medications Inactive Administered Medications - up to 3 most recent administrations Medication Order MAR Action Action Date Dose Rate Site EPINEPHrine 2 mg in Rate/Dose Change 01/05/2019 2:29 AM 6 mcg/min 45 mL/hr dextrose 5% 250 mL EDT infusion 0-10 mcg/min (0-75 mL/hr), Intravenous, CONTINUOUS, Starting on 01/04/19 at 2302, Until 01/06/19 at 1018, Titrate to keep MAP greater than 65 mmHg. Start at 1 mcg/min and increase by 1 mcg/min every 3 minutes until goal reached. Do not exceed 10 mcg/min. Restarted 01/05/2019 2:17 AM EDT 4 mcg/min 30 mL/hr Rate/Dose Change 01/05/2019 12:20 AM EDT 10 mcg/min 75 mL/hr esmolol (BREVIBLOC) injection Given 01/05/2019 2:27 AM EDT 20 mg PRN, Starting on 01/05/19 at 0209, Until 01/05/19 at 0318, Anesthesia Intra-op, Routine Given 01/05/2019 2:09 AM EDT 30 mg fentaNYL 50 mcg/mL multi-dose injection Given 01/05/2019 2:10 AM EDT 100 mcg Intravenous, PRN, Starting on 01/05/19 at 0210, Until 01/05/19 at 0318, Anesthesia Intra-op, Routine hydrocortisone sodium succinate (PF) Given 01/05/2019 2:19 AM ED T 100 mg (Solu-CORTEF) injection PRN, Starting on 01/05/19 at 0219, Until 01/05/19 at 0318, Anesthesia Intra-op, Routine insulin regular human (HumuLIN;NovoLIN) 1 Given 01/05/2019 2 :42 AM EDT 10 Units unit/mL in sodium chloride 0.9% BOLUS 0-8 Units 0-8 Units, Intravenous, PER INSULIN PROTOCOL, Starting on 01/04/19 at 2257, Until 01/05/19 at 0923, Per Protocol, BOLUS order. Type 1 Initial bolus 6 Units. Adjustment bolus per insulin infusion protocol: IV insulin Bolus scale: For BG in mg/dL (250-299 = 4 units, 300-359 = 6 units, greater than 360 = 8 units), Routine Given 01/05/2019 2:00 AM EDT 10 Units insulin regular human Rate/Dose Verify 01/05/2019 9:06 AM 15 Units/hr 15 mL/hr (HumuLIN;NovoLIN) 1unit/mL EDT in sodium chloride 0.9% infusion 0.5-8 Units/hr (0.5-8 mL/hr), Intravenous, CHANGE BAG EVERY EVENING, First dose on 01/04/19 at 2302, Until Discontinued, Intravenous, CHANGE BAG EVERY EVENING, Instructions Type 1 diabetes. Current blood glucose 300 - 359 Titration- aim for target range of 140 - 180 mg/dL. Check BG every hour. [[ Initial bolus of 6 units, then begin continuous infusion at 5 unit/hr. ]] If BG at the time the infusion is started is outside of the CURRENT BLOOD GLUCOSE range above, contact provider for new starting rate/bolus order. Current BG less than 80 - Stop insulin. If BG less than 70, treat per hypoglycemia protocol. Re-check BG in 30 minutes and as soon as BG is greater than 80, restart with rate 50% of previous rate. If infusion stopped after previous rate had been 0.5 unit/hour, recheck every hour and when BG greater than 100 and higher than last test restart at 0.5 unit/hour. , IF INFUSION IS PAUSED, TURN IT BACK ON SOON POSSIBLE, PER PROTOCOL. Current BG 80 - 139 - If BG dropped 10 mg/dL or more since last test, decrease rate by 50% and re-check in 30 minutes. Otherwise, decrease rate by 0.5 units/hour. Current BG 140 - 180 - If BG dropped 50 mg/dL or more since last test, decrease rate by 1 unit/hour. Otherwise, maintain same rate. Current BG 181 - 220 - If BG is lower than last test, maintain same rate. Otherwise, increase rate by 0.5 units/hour. Current BG 221 - 250 - If BG dropped 30 mg/dL or more since last test, maintain same rate. Otherwise, increase rate by 1 unit/hour. Current BG greater than 250 - Increase rate by 1 unit/hour AND bolus with Regular insulin IV as per IV Bolus Scale. Re-check BG in 30 minutes. THE FIRST DOSE OF SC INSULIN OUGHT TO BE ADMINISTERED BEFORE DISCONTINUING THE INFUSION. AN OVERLAP OF 2-3 HOURS IS RECOMMENDED. Continue to monitor the BG hourly., Routine Rate/Dose Change 01/05/2019 9:00 AM EDT 7.5 Units/hr 7.5 mL/hr Rate/Dose Change 01/05/2019 8:12 AM EDT 15 Units/hr 15 mL/hr lactated ringers infusion New Bag 01/05/2019 1:39 AM EDT CONTINUOUS PRN, Starting on Sun01/05/19 at 0139, Until Sun01/05/19 at 0318, Anesthesia Intra-op NORepinephrine (LEVOPHED) injection Given 01/05/2019 2:13 AM EDT 16 mcg PRN, Starting on Sun01/05/19 at 0213, Until Sun01/05/19 at 0318, Anesthesia Intra-op, Routine NORepinephrine 16 mcg/mL New Bag 01/05/2019 10:36 AM EDT 4 mcg/min 15 mL/hr (standard ADULT and Pedi greater than 20 kg) infusion 0-100 mcg/min (0-375 mL/hr), Intravenous, CONTINUOUS, Starting on Sun01/05/19 at 0115, Until 01/06/19 at 1018, Titrate to keep MAP greater than 65 mmHg. Start at 2 mcg/min and increase by 2 mcg/min every 3 minutes until goal reached. Do not exceed 200 mcg/min., Routine Rate/Dose Change 01/05/2019 9:23 AM EDT 6 mcg/min 22.5 mL/hr Rate/Dose Change 01/05/2019 8:55 AM EDT 10 mcg/min 37.5 mL/hr propofol (DIPRIVAN) infusion New Bag 01/08/2019 8:26 [...] restart at 50% of previous rate. Call supervisor hide house if goal not achieved at maximum rate. If SAT is ordered and if patient meets criteria for Spontaneous Awakening Trial, titrate per protocol., Routine Rate/Dose Change 01/08/2019 6:00 AM EDT 20 mcg/kg/min 16.3 mL/hr New Bag 01/08/2019 4:46 AM EDT 30 mcg/kg/min 24.4 mL/hr propofol (DIPRIVAN) infusion New Bag 01/05/2019 2:52 AM 50 mcg/kg/min 41.5 mL/hr CONTINUOUS PRN, Starting on EDT 01/05/19 at 0252, Until 01/05/19 at 0318, Anesthesia Intra-op, Routine rocuronium (ZEMURON) multi-dose injectio n Given 01/05/2019 2:09 AM EDT 50 mg PRN, Starting on 01/05/19 at 0148, Until 01/05/19 at 0318, Anesthesia Intra-op, Routine Given 01/05/2019 1:48 AM EDT 50 mg vasopressin (VASOSTRICT) 0.2 Rate/Dose 01/05/2019 2:18 0.1 Units/min 30 mL/hr units/mL IV infusion Change AM EDT (Anesthesia) CONTINUOUS PRN, Starting on 01/05/19 at 0210, Until [place] 01/05/19 at 0318 New Bag 01/05/2019 2:10 AM EDT 0.08 Units/min 24 mL/hr documented in this encounter Care Teams Occupational Health Nurse Relationship Specialty Start Date End Date Albert Zuleta MD PCP - General Family Medicine 01/17/17 10/26/21 [address] [place] [address] documented as of this encounter
--- OUTSIDE RECORDS SUMMARY | 2022-02-08 01:56 | XMS_ITS | Encounter Summary ---
:1960 Author Organization [facility] [place] [address] Care Team Providers Name Role Phone Albert Zuleta MD Primary Care Provider Encounter Details Date Type Department Care Team Description 12/31/2018 Telephone [place]astro[place] [facility] [place] [address] Social History Tobacco Use Types Packs/Day Years [...] this encounter Miscellaneous Notes Telephone Encounter - Jillian Leon - 12/31/2018 8:35 AM EDT Blossom [place] [id number] Diagnosis: [place] 1. Have you ever had a colonoscopy before? [] YES [x] NO If Yes, Date of Last [place]: If yes, did you have any problems with the procedure? [] YES [x] NO Explain: What type of sedation was used: 2. Do you take any Blood Thinners? [x] YES [] NO If Yes, type: _.81 mg baby aspirin 3. Do you have a Pacemaker or Defibrillator device? [] YES [x] NO If Yes send [employer] message to [email or web address] DEVICE CHECK 4. Are you a diabetic? [x] YES [] NO If yes, controlled by meds or diet? ___Both 5. Do you have any Allergies to Eggs, Latex or Medications? [x] YES [] NO If Yes, what:____See EDH 6. Do you take any Oral Iron Supplements (Including multi vitamins)? [] YES [x] NO 7. Do you have a history of three or more abdominal surgeries? [] YES [x] NO 8. Have you had a problem with sedation or anesthesia? [] YES [x] NO 9. Do you have a c-pap machine or oxygen tank? [x] C-PAP [] Oxygen [] NO 10. Do you take prescription narcotic pain medications? [x] YES [] NO Vicodin 11. You must have a responsible libertarian stay at the facility during your procedure and drive you home? [x] YES 12. Is there any other information you would like to give us to aid in scheduling? Height: _5'6 Weight:_299____ BMI: _48.3___ Age:58 y.o. documented in this encounter Plan of Treatment Upcoming Encounters Date Type Specialty Care Team Description 03/15/2022 Office Visit Neurology Ryann Barfield APRN [facility] [address] [place] [address] 03/23/2022 Appointment Radiology Hailey Mcclendon MD [facility] [address] [place] [address] 03/23/2022 Laboratory Appointment Lab 03/23/2022 Office Visit Gastroenterology Hailey Mcclendon MD [facility] [place] [address] 05/23/2022 Procedure visit Maxillofacial Surgery Corby Montes MD [facility] [address] [place] [address] documented as of this encounter Visit Diagnoses Not on filedocumented in this encounter Care Teams Light Equipment Operator Relationship Specialty Start Date End Date Albert Zuleta MD PCP - General Family Medicine 01/17/17 10/26/21 [address] [place] [address] documented as of this encounter
--- OUTSIDE RECORDS SUMMARY | 2022-02-08 01:56 | XMS_ITS | Encounter Summary ---
:1960 Author Organization [facility] [place] [address] Care Team Providers Name Role Phone Albert Zuleta MD Primary Care Provider Reason for Referral Diagnostic Test (Routine) - Closed Specialty Diagnoses / Procedures Referred By Contact Refer red To Contact Radiology Diagnoses Hyperparathyroidism, primary Emily Mcmahon MD [facility] Rad Xray Procedures DXA Central-Spine, Hip, And/Or Whole Body (Generic) [facility] [place] [address] [place] [address] Referral ID Status Reason Start Date Expiration Date Visits V isits Requested Authorized [id number] Closed Specialty 10/15/2018 10/15/2019 1 1 Service Requested Reason for Visit Diagnostic Test (Routine) - Closed Specialty Diagnoses / Procedures Referred By Contact Refer red To Contact Radiology Diagnoses Hyperparathyroidism, primary Emily Mcmahon MD [facility] Rad Xray Procedures DXA Central-Spine, Hip, And/Or Whole Body (Generic) [facility] [place] [address] [place] [address] Referral ID Status Reason Start Date Expiration Date Visits V isits Requested Authorized [id number] Closed Specialty 10/15/2018 10/15/2019 1 1 Service Requested Encounter Details Date Type Department Care Team Description 11/28/2018 Hospital Encounter XRay at [facility] Mcmahon, Hyperparathyroidism, [address] Emily Estrada MD primary [place], [place] [facility] [id number] CENTER [phone] GENERAL SURGERY [place], [place] [address] Social History Tobacco Use Types [...] 03/09/2018 (PRINIVIL;ZESTRIL) 5 mg MOUTH DAILY Tablet fluconazole (DIFLUCAN) Take 1 tablet by mouth 7 tablet 0 0 11/24/2018 12/01/2018 200 mg Tablet daily for 7 days. amitriptyline (ELAVIL) Take 25 mg by [...] magnesium) Tablet documented as of this encounter Plan of Treatment Upcoming Encounters Date Type Specialty Care Team Description 03/15/2022 Office Visit Neurology Ryann Barfield, [facility] [address] [place], [place] [address] 03/23/2022 Appointment Radiology Hailey Mcclendon MD [facility] [address] [place] [address] 03/23/2022 Laboratory Appointment Lab 03/23/2022 Office Visit Gastroenterology Hailey Mcclendon MD [facility] [address] [place] [address] 05/23/2022 Procedure visit Maxillofacial Surgery Corby Montes MD [facility] [address] [place] [address] documented as of this encounter Procedures Procedure Name Priority Date/Time Associated Diagnosis Comme nts DXA CENTRAL SPINE, Routine 11/28/2018 1:55 PM Hyperparathyroid ism, Results for this HIP, AND/OR WHOLE EDT primary procedure are in BODY (GENERIC) the results section. documented in this encounter Results DXA Central-Spine, Hip, And/Or Whole Body (Generic) (11/28/2018 1:55 PM EDT) Anatomical Region Laterality Modality C-spine, Hip N/A Other Specimen (Source) Anatomical Location Collection Method / Collectio n Time Received Time / Laterality Volume Impressions 11/28/2018 2:31 PM EDT Measurements satisfied the WHO classification for normal bone mineral density. However, measurements lie at the thresho ld between normal bone mineral density and osteopenia. Estimating Fracture Risk: The relationship between bone mineral de nsity (BMD) and risk of fracture is well established. As BMD decreases, risk incr eases. Quantifying risk is difficult and is usually limited to estimation of the relative risk - a term which may have limited value when trying to discuss an individual's risk. Estimating the absolute risk for a patient requires an understanding of the incidence rate in a given population and consideration of mu ltiple, partially independent, risk factors in addition to BMD. The World Health Organization (WHO) has developed a fracture risk prediction tool that calculates a ten-year risk of major osteoporotic fracture based on femoral neck bone density measurements a nd nine clinical risk factors for individuals who have not been treated fo r osteoporosis. This is available through an interactive web-based [employer] (http://www.shef.ac.uk/FRAX/) and can be used to estimate a given patient's ab solute risk of major osteoporotic fracture or hip fracture over the next 1 0 years. These estimates may prove useful when discussing risk with a patie nt. It is important, however, to understand the tool's limitations and ho w a given individual's risk might differ from the tool's estimate. The tool does not take into account the dose-response associated with most risk factors. For e xample, the significant increase in risk associated with multiple prior fractures compared to a single prior fracture is not taken into account. Similarly, the l ocation of a previous fracture, the amount of glucocorticoids and number of cigarettes smoked are not considered. These limitations are discussed in a Fr equently Asked Questions section of the FRAX website which you are encouraged to review. DXA data sheets with BMD measurements an d plots are available in [employer] under the imaging tab. Paper copies will be sent to providers without [employer] access. If you have received this report without [facility] data sheet and do not have access to [employer], please contact Radiology Transcrip tion at [phone] Sunday thru Sunday 8am-4pm. Thank you for letting us participate in the care of this patient. For questions regarding this report, please contact e number below. ? Narrative 11/28/2018 2:31 PM EDT EXAMINATION: DXA CENTRAL-SPINE, HIP, AND/OR WHOLE BODY (GENERIC) CLINICAL HISTORY: Hyperparathyroidism TECHNIQUE: Scans were acquired at the [place] mbar spine, left hip, and left forearm. The left forearm was also scanned due to the given clinical history of hyperparathyroidism. COMPARISON: None FINDINGS: Lowest T-score at a diagnostic region of interest: T-score: -1.0, LOLA: Lumbar spine, WHO di agnosis: Normal bone mineral density. Procedure Note Comfort Davidson MD - 11/28/2018Formatting o f this note might be different from the original. EXAMINATION: DXA CENTRAL-SPINE, HIP, AND /OR WHOLE BODY (GENERIC) CLINICAL HISTORY: Hyperparathyroidism TECHNIQUE: Scans were acquired at the [place] mbar spine, left hip, and left forearm. The left forearm was also scanned due to the given clinical history of hyperparathyroidism. COMPARISON: None FINDINGS: Lowest T-score at a diagnostic region of interest: T-score: -1.0, LOLA: Lumbar spine, WHO di agnosis: Normal bone mineral density. IMPRESSION Measurements satisfied the WHO classific ation for normal bone mineral density. However, measurements lie at the thresho ld between normal bone mineral density and osteopenia. Estimating Fracture Risk: The relationship between bone mineral de nsity (BMD) and risk of fracture is well established. As BMD decreases, risk incr eases. Quantifying risk is difficult and is usually limited to estimation of the relative risk - a term which may have limited value when trying to discuss an individual's risk. Estimating the absolute risk for a patient requires an understanding of the incidence rate in a given population and consideration of mu ltiple, partially independent, risk factors in addition to BMD. The World Health Organization (WHO) has developed a fracture risk prediction tool that calculates a ten-year risk of major osteoporotic fracture based on femoral neck bone density measurements a nd nine clinical risk factors for individuals who have not been treated fo r osteoporosis. This is available through an interactive web-based interfa ce (http://www.shef.ac.uk/FRAX/) and can be used to estimate a given patient's ab solute risk of major osteoporotic fracture or hip fracture over the next 1 0 years. These estimates may prove useful when discussing risk with a patie nt. It is important, however, to understand the tool's limitations and ho w a given individual's risk might differ from the tool's estimate. The tool does not take into account the dose-response associated with most risk factors. For e xample, the significant increase in risk associated with multiple prior fractures compared to a single prior fracture is not taken into account. Similarly, the l ocation of a previous fracture, the amount of glucocorticoids and number of cigarettes smoked are not considered. These limitations are discussed in a Fr equently Asked Questions section of the FRAX website which you are encouraged to review. DXA data sheets with BMD measurements an d plots are available in [employer] under the imaging tab. Paper copies will be sent to providers without [employer] access. If you have received this report without e data sheet and do not have access to [employer], please contact Radiology Transcrip tion at [phone] Sunday thru Sunday 8am-4pm. Thank you for letting us participate in the care of this patient. For questions regarding this report, please contact e number below. Emily Mcmahon MD IMG DEXA ORDERABLES documented in this encounter Visit Diagnoses Diagnosis Hyperparathyroidism, primary Primary hyperparathyroidism documented in this encounter Care Teams Research Manufacturing Operator Relationship Specialty Start Date End Date Albert Zuleta MD PCP - General Family Medicine 01/17/17 10/26/[address] [place] [id number] documented as of this encounter
--- OUTSIDE RECORDS SUMMARY | 2022-02-08 01:56 | XMS_ITS | Encounter Summary ---
:1960 Author Organization [facility] [place] [address] Care Team Providers Name Role Phone Albert Zuleta MD Primary Care Provider Reason for Visit Reason Comments Establish Care Consultation (Routine) - Closed Specialty Diagnoses / Procedures Referred By Contact Refer red To Contact General Surgery Diagnoses POSSIBLE PRIMARY HYPERPARATHYROIDISM Crow Galvin Jr., Carl Mcmahon MD, MD [facility] [address] [facility]OLOGY [place] [address] Fax: Referral ID Status Reason Start Date Expiration Date Visits Requ ested Visits Authorized [id number] Closed 10/11/2018 10/11/2019 1 1 Encounter Details Date Type Department Care Team Description 11/28/2018 Office Visit General Surgery at [facility] Emily Mcmahon, Hypercalcemia [facility] [place] [address] [facility] [phone] GENERAL SURGERY [place] [id number] (Wo rk) Social History Tobacco Use Types [...] Sign Reading Time Taken Comments Blood Pressure 126/58 11/28/2018 2:19 PM EDT Pulse 64 11/28/2018 2:19 PM EDT Temperature 36.9 ??C (98.4 ??F) 11/28/2018 2:19 PM EDT Respiratory Rate 16 11/28/2018 2:19 PM EDT Oxygen Saturation 99% 11/28/2018 2:19 PM EDT Inhaled Oxygen Concentration - - Weight 136.1 kg (300 lb) 11/28/2018 2:19 PM EDT Height - - Body Mass Index 48.42 09/27/2018 3:40 AM EST documented in this encounter Progress Notes Emily Mcmahon MD - 11/28/2018 2:30 PM EDT Endocrine Surgery Initial Consultation HPI: Ms. Blossom Samayoa is a very pleasant 57 y.o. year old female who presents for evaluation of possible primary hyperparathyroidism as a referral from Dr. Galvin. Her labs have been checked during workup of nephrolithiasis. Her history of nephrolithiasis is extensive, requiring multiple lithotripsies.At the time of a right PCNL done in September, she was found to have an encrusted stent and large upper pole stones. She then underwent left PCNL in October. Again, she had a large stone and several smaller stones seen. A postoperative CT showed that she was stone free. Labs done that day prior to her procedure showed a Ca 11.6, ionized 1.42, and PTH 42. However, the next morning, calcium level was 9.9 (presumably she received some hydration for the procedure). For unclear reasons, PTH was rechecked todayin isolation (unfortunately no concomitant Ca drawn) and was 39. According to the patient, she has other episodes of hypercalcemia that have come to medical attention. She reports an episode of CHF in 2017 and at some point around then remembers being called back into the emergency department to get IV fluids because of a calcium in the high 11s. She does not recall whether PTH was worked up at that time. She does not have a history of osteoporosis. There is not a recent history of fractures. She was told to take Tums to protect her bones when she was being treated for the sarcoidosis and rememberstaking 6 times a day. She is not doing that now. She reports symptoms of hyperparathyroidism includingfatigue, bone pain, achiness and frequent urination. Her history is also significant for sarcoidosis, which was diagnosed in 1990 and was treated with steroids for about a year and a half. There is not a history of previous anterior neck surgery. She does not have a family history of endocrinopathies, hypercalcemia or endocrine malignancy. She presents today for consideration of surgical management of her possible hyperparathyroidism. Recent labs: Serum calcium 11.6 mg/dL PTH 42 pg/mL 25-OH Vitamin D 32 ng/mL Ionized Calcium 1.42 mmol/L Phosphorus Lab Results Component Value Date PHOS 2.0 (L) 07/09/2018 mg/dL 24 hour urine calcium mg/24hr Recent studies: Recent DEXA scan: normal bone density (lowest T score -1.0 in the lumbar spine) Sestamibi scan: non-localizing Cervical ultrasound has not yet been performed. Past Medical History: Diagnosis Date ??? Asthma [...] performed by Crow Galvin Jr., MD at [facility] OR ??? PRG FLUOROSCOPY EXAM UP TO 1 HR PHY OR OTH HLTH CARE PROV N/A 09/26/2018 FLUOROSCOPY (WRVU 0.17) performed by Crow Galvin Jr., MD at [facility] OR ??? PRG FLUOROSCOPY EXAM UP TO 1 HR PHY OR OTH TH CARE PROV N/A 11/07/2018 FLUOROSCOPY (WRVU 0.17) performed by Crow Galvin Jr., MD at [facility] OR ??? PRG US GUIDE INTRAOP Right 09/26/2018 ULTRASONIC GUIDANCE, INTRAOP (WRVU 1.2) performed by Crow Galvin Jr., MD at [facility] OR ? ? PRO CYSTO W URETEROSCOPY &/OR PYELOSCOPY, DX Right 09/26/2018 CYSTOURETEROSCOPY, DIAGNOSTIC (WRVU 5.75) performed by Crow Galvin Jr., MD at [facility] OR ? ? PRO CYSTO W URETEROSCOPY &/OR PYELOSCOPY, DX Left 11/07/2018 CYSTOURETEROSCOPY, DIAGNOSTIC (WRVU 5.75) performed by Crow Galvin Jr., MD at [facility] OR ??? PRO CYSTOSCOPY, INSERT URETERAL STENT Right 07/10/2018 CYSTO, STENT PLACEMENT (WRVU 2.82) performed by Viky Sears MD at [facility] OR ??? PRO CYSTOSCOPY, REMV CALCULUS, COMPLIC Right 09/26/2018 CYSTO, REMOVAL OF STENT, FOREIGN BODY, CALCULUS, COMPLICATED (WRVU 5.2) performed by Crow Galvin MD at [facility] OR ??? PRO CYSTOURETHROSCOPY, URETER CATHETER Right 07/10/2018 CYSTO, RETROGRADE, URETEROPYELOGRAPHY (WRVU 2.37) performed by Viky Sears MD at [facility] OR ??? PRO CYSTOURETHROSCOPY, URETER CATHETER Right 09/26/2018 CYSTO, RETROGRADE, URETEROPYELOGRAPHY, W/PCNL (WRVU 2.37) performed by Crow Galvin Jr., MD at [facility] MAIN OR ??? PRO PERCUT REMV KID STONE, 2+ CM Right 09/26/2018 NEPHROLITHOTOMY, (PCNL) PERCUTANEOUS, OVER 2CM (WRVU 23.5) performed by Crow Galvin Jr., MD at [facility] MAIN OR ??? PRO PERCUT REMV KID STONE, 2+ CM Left 11/07/2018 NEPHROLITHOTOMY, (PCNL) PERCUTANEOUS, OVER 2CM (WRVU 23.5) performed by Crow Galvin Jr., MD at [facility] MAIN OR ? ? PRO PLTN NEPHROSTOMY CATH PRQ NEW ACCESS RS&I Right 09/26/2018 NEPHROSTOMY CATHETER, PERC, INC DX NEPHROSTOGRAM/URETEROGRAM, IMG GUIDANCE (WRVU 4.25) performed Crow Snyder Jr., MD at [facility] MAIN OR ? ? PRO PLTN NEPHROSTOMY CATH PRQ NEW ACCESS RS&I Left 11/07/2018 NEPHROSTOMY CATHETER, PERC, INC DX NEPHROSTOGRAM/URETEROGRAM, IMG GUIDANCE (WRVU 4.25) performed byCrow Galvin Jr., MD at [facility] MAIN OR ??? PRO RENAL ENDOSCOPY, TREATMENT Left 11/07/2018 RENAL ENDOSCOPY W\FULG, W\WO\BX, VIA NEPHROSTOMY (WRVU 6.61) performed by Crow Galvin Jr., MD [facility] MAIN OR Current Outpatient Medications on File Prior to Visit Medication Sig Dispense Refill ??? fluconazole (DIFLUCAN) 200 mg Tablet Take 1 tablet by mouth daily for 7 days. 7 tablet 0 ??? amitriptyline (ELAVIL) 25 mg Tablet Take 25 mg by mouth nightly. ??? ibuprofen (ADVIL;MOTRIN) 200 mg Tablet Take [...] TABLET BY MOUTH TWICE A DAY1 ??? [DISCONTINUED] oxyCODONE (ROXICODONE) 10 mg Tablet Take 0.5-1 tablets by mouth every 4 hours as needed for Pain. 10 tablet 0 ??? CANNABIDIOL, CBD, EXTRACT ORAL Take by mouth as needed. ??? ACYCLOVIR ORAL Take by mouth as needed. ??? nitroGLYcerin (NITROSTAT) 0.4 mg Tablet, Sublingual Place 0.4 mg under the tongue every 5 minutes as needed for Chest pain. Current Facility-Administered Medications on File Prior to Visit Medication Dose Route Frequency Provider Last Rate Last Dose ??? [COMPLETED] technetium (Tc-99m) sestamibi injection 20.3 mCi 20.3 mCi Intravenous Once PRN Leonel Polanco MD 20.3 mCi at 11/28/18 0937 ??? [COMPLETED] technetium (Tc-99m) pertechnetate (TC04) injection 19.4 mCi 19.4 mCi Intravenous Once PRN Leonel Polanco MD 19.4 mCi at 11/28/18 1213 Allergies as of 11/28/2018 - Review Complete 11/22/2018 Allergen Reaction Noted ??? Anafranil [clomipramine] 08/28/2018 ??? Augmentin [amoxicillin-pot clavulanate] Hives and Itching 06/26/2018 ??? Cis free text allergy ??? Erythromycin Hives and Itching 06/26/2018 ??? Lidocaine hcl (local anesth.) [procedural tray] Itching and Other (See Comments) 11/22/2018 ??? Macrobid [nitrofurantoin monohyd/m-cryst] 06/26/2018 ??? Sulfa (sulfonamide antibiotics) Hives Family History: She has 1 sister who is also had multiple procedures for kidney stones. That sister also has thyroid nodules. Another sister, who accompanies her today, had Hurthle cell thyroid cancer.No pituitary, pancreas or adrenal tumors. No parathyroid disease. Social History: She lives alone. She is a former smoker (quit July 2016). No alcohol. She is accompanied today by 1 of her sisters. No professional public speaking or singing Review of Systems: Negative/Normal Positive/Abnormal Energy Level [] Fatigue, malaise Fever [x] Appetite [x] Weight Loss/Gain [x] ENT [x] Cardiovascular [x] Respiratory [x] Gastrointestinal [x] Bleeding [x] Bruising [x] Genitourinary [] frequency Musculoskeletal [] chronic pain Endocrine [x] Neuro [x] Psych [] lifelong depression Encounter Vitals: BP 126/58 (BP Location (NBP): Right arm) Pulse 64 Temp 36.9 ??C (98.4 ??F) Resp 16 Wt 136.1 kg (300 lb) LMP (LMP Unknown) SpO2 99% BMI 48.42 kg/m?? Physical Exam: System Normal Abnl Findings General [x] [] Obese, walks with cane Skin [x] [] Warm and dry Neck [x] [] No thyromegaly, no masses, trachea midline Lymph Nodes [x] [] No cervical lymphadenopathy Lungs [x] [] Normal respiratory effort, clear to auscultation bilaterally Cardiovascular [x] [] Regular rate and rhythm, no murmurs Extremities [x] [] Warm, no edema, full ROM Neuro [x] [] Motor intact, voice normal Psych [x] [] Normal mood and affect; responds to questions appropriately Procedures performed this visit: Thyroid, Parathyroid and Cervical Ultrasound I performed a thyroid, parathyroid and cervical ultrasound at the time of the clinic visit today using the 12 mHz linear ultrasound transducer. The thyroid, parathyroid and central and bilateral lateral neck lymph node basins were evaluated. The findings include: Thyroid Isthmus: Thickness: 0.50 cm Nodules: none Right lobe: Lobe: 4.09 x 1.71 x 2.10 cm Nodules: none Left lobe: Lobe: 3.75 x 1.33 x 1.43 cm Nodules: none Separate from the thyroid in the left central neck, there is a HYPERechoic mass measuring 1.05 x 0.48 x 0.75cm with what may be small cystic change centrally. It does not have the sonographic appearance of a parathyroid Cervical lymph nodes Central neck: Normal ultrasonographic appearing lymph nodes Right lateral neck: Normal ultrasonographic appearing lymph nodes Left lateral neck: Normal ultrasonographic appearing lymph nodes Assessment and Plan: Ms. Blossom Samayoa is a 57 y.o. year old female with a history significant for recurrent kidney stones and sarcoidosis who has had fluctuating calcium levels, ranging from the mid normal range all the way up to the mid 11's, and a PTH level that appears to have always been in the mid normal range (at least over the past 3 months). Her biochemical diagnosis is challenging. Her labs drawn in the morning of 11/07/2018 certainly appear consistent with a normal hormonal version of hyperparathyroidism,as her PTH level is inappropriate for her level of hypercalcemia. However, it is curious that her calcium levels were normal less than 24 hours later. I am not sure whether her sarcoidosis may be contributing to her hypercalcemia. I think it would probably be worth repeating labs to include a 1, 25 OHvitamin D level, which may help with the differential diagnosis in the context of sarcoid. She is also due to collect a 24-hour urine sample, although I am not sure how much this will help us in her differential diagnosis because I suspect it will be elevated. She does not have any localized parathyroid pathology on either sestamibi or ultrasound. Therefore, we decided to go ahead with parathyroid surgery, she would need a bilateral exploration. Given her significant history of nephrolithiasis, I dothink this would be a reasonable option for her, but I want to be sure about her diagnosis first. I w ould like to confer with her primary care doctor and will also ask Dr. Galvin about the relationship between sarcoidosis and nephrolithiasis. Once I have had a chance to talk to my colleagues, I will getback to her with a plan for next steps. documented in this encounter Plan of Treatment Upcoming Encounters Date Type Specialty Care Team Description 03/15/2022 Office Visit Neurology Ryann Barfield, SHMUEL [facility] [address] [place], [place] [address] 03/23/2022 Appointment Radiology Hailey Mcclendon MD [facility] [address] [place] [address] 03/23/2022 Laboratory Appointment Lab 03/23/2022 Office Visit Gastroenterology Hailey Mcclendon MD [facility] [address] [place] [address] 05/23/2022 Procedure visit Maxillofacial Surgery Corby Montes MD [facility] [address] [place], [place] [address] documented as of this encounter Visit Diagnoses Diagnosis Hypercalcemia documented in this encounter Care Teams Certified Industrial Hygienist Relationship Specialty Start Date End Date Albert Zuleta MD PCP - General Family Medicine 01/17/17 10/26/21 [address] [place] [address] documented as of this encounter
--- OUTSIDE RECORDS SUMMARY | 2022-02-08 01:56 | XMS_ITS | Encounter Summary ---
:1960 Author Organization [facility] Address [address] [place] [address] Care Team Providers Name Role Phone Albert Zuleta MD Primary Care Provider Reason for Visit Diagnostic Test (Routine) - Closed Specialty Diagnoses / Procedures Referred By Contact Refer red To Contact Radiology Diagnoses Hyperparathyroidism, primary Emily Mcmahon MD [facility] Rad Nuclear Med Procedures NM Parathyroid w Spect CT & Thyroid Imaging (Leb) [facility] [place] [address] [place] [address] Referral ID Status Reason Start Date Expiration Date Visits V isits Requested Authorized [id number] Closed Specialty 10/15/2018 10/15/2019 1 1 Service Requested Encounter Details Date Type Department Care Team Description 11/28/2018 Hospital Encounter Nuclear Medicine at Jeromy Mcmahon MD [facility] [place] [address] GENERAL SURGERY [phone] [place], [place] [address] (Wo rk) Social History Tobacco [...] Pain. lactobacillus Take 1 capsule by 0 0311/2019 rhamnosus, GG, mouth daily. (CULTURELLE) 10 billion [...] Ryann Barfield, SHMUEL [facility] [place] [address] 03/23/2022 Appointment Radiology Hailey Mcclendon MD [facility] [address] [place] [address] 03/23/2022 Laboratory Appointment Lab 03/23/2022 Office Visit Gastroenterology Hailey Mcclendon MD [facility] [place] [address] 05/23/2022 Procedure visit Maxillofacial Surgery Corby Montes MD [facility] [address] [place] [address] documented as of this encounter Procedures Procedure Name Priority Date/Time Associated Comments Diagnosis NM PARATHYROID Routine 11/28/2018 12:37 Hyperparathyroidism Re sults for this W/SPECT CT AND PM EDT , primary procedure are in THYROID IMAGING the results section. documented in this encounter Visit Diagnoses Not on filedocumented in this encounter Administered Medications Inactive Administered Medications - up to 3 most recent administrations Medication Order MAR Action Action Date Dose Rate Site technetium (Tc-99m) Given 11/28/2018 12:13 PM EDT 19.4 mCi pertechnetate (TC04) injection 19.4 mCi 19.4 mCi, Intravenous, ONCE PRN, 1 dose, Starting on Airn 11/28/18 at 1213, Until Arin 11/28/18 at 1213, Per Protocol, Routine documented in this encounter Care Teams Change Advisor Relationship Specialty Start Date End Date Albert Zuleta MD PCP - General Family Medicine 01/17/17 10/26/21 [place] [address] documented as of this encounter
--- OUTSIDE RECORDS SUMMARY | 2022-02-08 01:56 | XMS_ITS | Encounter Summary ---
:1960 Author Organization [facility] [place] [address] Care Team Providers Name Role Phone Albert Zuleta MD Primary Care Provider Reason for Referral Diagnostic Test (Routine) - Closed Specialty Diagnoses / Procedures Referred By Contact Refer red To Contact Radiology Diagnoses Hyperparathyroidism, primary Emily Mcmahon MD [facility] Rad Nuclear Med Procedures NM Parathyroid w Spect CT & Thyroid Imaging (Leb) [facility] [place] [address] [place] [address] Referral ID Status Reason Start Date Expiration Date Visits V isits Requested Authorized [id number] Closed Specialty 10/15/2018 10/15/2019 1 1 Service Requested Reason for Visit Diagnostic Test (Routine) - Closed Specialty Diagnoses / Procedures Referred By Contact Refer red To Contact Radiology Diagnoses Hyperparathyroidism, primary Emily Mcmahon MD [facility] Rad Nuclear Med Procedures NM Parathyroid w Spect CT & Thyroid Imaging (Leb) [facility] [place] [address] [place] [address] Referral ID Status Reason Start Date Expiration Date Visits V isits Requested Authorized [id number] Closed Specialty 10/15/2018 10/15/2019 1 1 Service Requested Encounter Details Date Type Department Care Team Description 11/28/2018 Hospital Encounter Nuclear Medicine at [facility], perparathyroidism, Hailey Barnes Emily Estrada MD [facility] [address], [place] GENERAL SURGERY [id number] [place], [place] [id number] [phone] Social History Tobacco Use Types Packs/Day Years [...] Description 03/15/2022 Office Visit Neurology Ryann Barfield, SIDE SEAM ENVELOPE MACHINE OPERATOR [facility] [address] [place], [place] [address] 03/23/2022 Appointment Radiology Haiely Mcclendon MD [facility] [place] [address] 03/23/2022 Laboratory Appointment Lab 03/23/2022 Office Visit Gastroenterology Hailey Mcclendon MD [facility] [place] [address] 05/23/2022 Procedure visit Maxillofacial Surgery Corby Montes MD [facility] [address] [place] [address] documented as of this encounter Procedures Procedure Name Priority Date/Time Associated Comments Diagnosis NM PARATHYROID Routine 11/28/2018 12:37 Hyperparathyroidism Re sults for this W/SPECT CT AND PM EDT , primary procedure are in THYROID IMAGING the results section. documented in this encounter Results NM Parathyroid w Spect CT & Thyroid Imaging (Leb) (11/28/2018 12:37 PM EDT) Anatomical Region Laterality Modality Nuclear Medicine Specimen (Source) Anatomical Location Collection Method / Collectio n Time Received Time / Laterality Volume Impressions 11/28/2018 4:06 PM EDT No evidence for a parathyroid adenoma. Preliminary report signed by: MASHA BARRAZA at 11/28/2018 2:40 PM I have personally reviewed the image(s) and the residents interpretation and agree with the findings, Yaw Pelaez at 11/28/2018 4:06 PM Thank you for letting us participate in the care of this patient. For questions regarding this report, please contact e number below. ? Electronically signed by: Yaw Pelaez [facility] ([phone]), at 11/28/2018 4:06 PM Narrative 11/28/2018 4:06 PM EDT EXAMINATION: NM PARATHYROID W SPECT CT AND THYROID IMAGING (LEB) CLINICAL HISTORY: Hyperparathyroidism TECHNIQUE: Technetium-99m sestamibi was administere d intravenously at a dose of 20.3 mCi. 15 minutes later, anterior image of the neck and chest was obtained. Two hours later, the anterior image of t he neck and chest was repeated. Tomographic imaging of the neck and ches t was then performed with the images reconstruction in the axial, coronal and sagittal planes. A low dose CT scan was acquired for attenuation correction and anatomic localization. Technetium-99m pertechnetate was then ad ministered intravenously at a dose of 19.4 mCi. 20 minutes later, the anterior image of the neck and chest was repeated. COMPARISON: None FINDINGS: Early and delayed planar sestamibi image s show homogeneous tracer uptake in both lobes of the thyroid with no persistent activity seen on delayed imaging. SPECT-CT confirms that there is no abnor mal activity seen in the neck or upper chest regions. Pertechnetate thyroid scan shows homogen eous tracer uptake in both lobes of the thyroid, matched in morphology to that s een on the planar sestamibi images. Incidental CT findings of coronary and a ortic calcifications, mitral valve calcifications. Procedure Note Yaw Pelaez MD - 11/28/2018Formatti ng of this note might be different from the original. EXAMINATION: NM PARATHYROID W SPECT CT A ND THYROID IMAGING (LEB) CLINICAL HISTORY: Hyperparathyroidism TECHNIQUE: Technetium-99m sestamibi was administere d intravenously at a dose of 20.3 mCi. 15 minutes later, anterior image of the neck and chest was obtained. Two hours later, the anterior image of t he neck and chest was repeated. Tomographic imaging of the neck and ches t was then performed with the images reconstruction in the axial, coronal and sagittal planes. A low dose CT scan was acquired for attenuation correction and anatomic localization. Technetium-99m pertechnetate was then ad ministered intravenously at a dose of 19.4 mCi. 20 minutes later, the anterior image of the neck and chest was repeated. COMPARISON: None FINDINGS: Early and delayed planar sestamibi image s show homogeneous tracer uptake in both lobes of the thyroid with no persistent activity seen on delayed imaging. SPECT-CT confirms that there is no abnor mal activity seen in the neck or upper chest regions. Pertechnetate thyroid scan shows homogen eous tracer uptake in both lobes of the thyroid, matched in morphology to that s een on the planar sestamibi images. Incidental CT findings of coronary and a ortic calcifications, mitral valve calcifications. IMPRESSION No evidence for a parathyroid adenoma. Preliminary report signed by: MASHA BARRAZA at 11/28/2018 2:40 PM I have personally reviewed the image(s) and the residents interpretation and agree with the findings, Yaw Pelaez at 11/28/2018 4:06 PM Thank you for letting us participate in the care of this patient. For questions regarding this report, please contact [facility] number below. Electronically signed by: Yaw Pelaez [facility] ([phone]), at 11/28/2018 4:06 PM Emily Mcmahon MD IM NM ORDERABLES documented in this encounter Visit Diagnoses Diagnosis Hyperparathyroidism, primary Primary hyperparathyroidism documented in this encounter Administered Medications Inactive Administered Medications - up to 3 most recent administrations Medication Order MAR Action Action Date Dose Rate Site technetium (Tc-99m) sestamibi Given 11/28/2018 9:37 AM EDT 20.3 mCi injection 20.3 mCi 20.3 mCi, Intravenous, ONCE PRN, 1 dose, Starting on Arin 11/28/18 at 0937, Until Arin 11/28/18 at 0937, Per Protocol, Routine documented in this encounter Care Teams Roll Repairer Relationship Specialty Start Date End Date Albert Zuleta MD PCP - General Family Medicine 01/17/17 10/26/21 [place] [address] documented as of this encounter
--- OUTSIDE RECORDS SUMMARY | 2022-02-08 01:56 | XMS_ITS | Encounter Summary ---
:1960 Author Organization [facility] [place] [address] Care Team Providers Name Role Phone Albert Zuleta MD Primary Care Provider Encounter Details Date Type Department Care Team Description 01/04/2019 Anesthesia Event XRay at [facility] Viky Chung, [address] [place] [address] [place] [address] [facility] [phone] ANESTHESIOLOGY D EPT [place], [place] [address] (Wo rk) Anesthesia Record Procedure Summary Procedure Name Responsible Anesthesia Start Anesthesia Stop Time Anesthesiologist Time XR CHEST ONE VIEW Events No events on file. No medications on file. Agents No agents on file. Blood No blood administrations on file. Lines, Drains, and Airways No LDAs on file. documented in this encounter Social History Tobacco [...] 03/15/2022 Office Visit Neurology Ryann Barfield APRN [facility] DR DENISA [place]USE[place] [address] 03/23/2022 Appointment Radiology Hailey Mcclendon MD [facility] RICHARD [place] [address] 03/23/2022 Laboratory Appointment Lab 03/23/2022 Office Visit Gastroenterology Hailey Mcclendon MD [facility] [address] [place] [address] 05/23/2022 Procedure visit Maxillofacial Surgery Corby Montes MD [facility] Dr [place] [address] documented as of this encounter Visit Diagnoses Not on filedocumented in this encounter Care Teams Shorer Relationship Specialty Start Date End Date Albert Zuleta MD PCP - General Family Medicine 01/17/17 10/26/21 [place] [address] documented as of this encounter
--- OUTSIDE RECORDS SUMMARY | 2022-02-08 01:56 | XMS_ITS | Encounter Summary ---
:1960 Author Organization [facility] [place] [address] Care Team Providers Name Role Phone Albert Zuleta MD Primary Care Provider Reason for Visit Reason Comments Nephrolithiasis Encounter Details Date Type Department Care Team Description 12/31/2018 Office Visit Urology at [facility] Crow Galvin Jr., Nephrolithiasis [facility] [place] [address] [facility] [phone] UROLOGY DEPT. [place], [place] [address] (Wo rk) Social History Tobacco [...] Sign Reading Time Taken Comments Blood Pressure 138/67 12/31/2018 4:27 PM EDT Pulse 73 12/31/2018 4:27 PM EDT Temperature 36.6 ??C (97.9 ??F) 12/31/2018 4:27 PM EDT Respiratory Rate - - Oxygen Saturation 98% 12/31/2018 4:27 PM EDT Inhaled Oxygen Concentration - - Weight - - Height - - Body Mass Index - - documented in this encounter Progress Notes Crow Galvin Jr., MD - 12/31/2018 4:30 PM EDT Images from the original note were not included. HPI: Kristopher Pacheco is a 57 y.o.woman who presents to multi-disciplinary metabolic stone clinic for urologic follow up regarding mixed CaOx / CaPhos urolithiasis. She reports prior history of sarcoidosis ?? She had been??admitted to the Medicine Service on 07/09/2019 for nausea, vomiting, leukocytosis and UTI. CT showed right hydronephrosis, large??right UPJ stone and obstructing??right UVJ stone, as wellas a large left renal stone burden which was non-obstrcuting. Urology took her to the OR and placed a right ureteral stent with Dr. Sears on 07/09/2019. Urine cultures from [facility] showed Proteus Mirabilis. Blood cultures at [facility] showed no growth. She was discharged on [...] on retrograde ureteroscopy, >2cm total stone burden Lower pole calyx targeted for access with ultrasound guidance. Postop CT confirmed she had been rendered stone free bilaterally. ?? Since planned stent removal, she has been well. She denies any abdominal or flank pain. She was scheduled for renal ultrasound, but did not have it done today ?? Review of Systems Constitution: Negative for fever. Eyes: Negative for pain. Musculoskeletal: Negative for back pain. Gastrointestinal: Negative for abdominal pain. Genitourinary: Negative for flank pain. Past Medical History: [...] There is no tenderness. There is no rebound and no guarding. Genitourinary: Genitourinary Comments: No CVA tenderness to percussion bilaterally Neph sites well healed Musculoskeletal: She exhibits no edema or tenderness. Neurological: She is alert and oriented to person, place, and time. Skin: Skin is warm and dry. She is not diaphoretic. Psychiatric: She has a normal mood and affect. Her behavior is normal. Vitals reviewed. ?? Stone Analysis(10/2018): 60% Calcium phosphate (apatite); 30% Calcium oxalate dihydrate;10% Calcium oxalate monohydrate Labs: Results for KRISTOPHER PACHECO ( ) as of 11/19/2018 14:56 ?? Ref. Range 09/27/2018 01:49 11/07/2018 08:57 PTH Latest Ref Range: 15 - 65 pg/mL 49 42 ? Results for KRISTOPHER PACHECO ( ) as of 11/19/2018 14:56 ?? Ref. Range 11/07/2018 14:35 Calcium Latest Ref Range: 8.5 - 10.5 mg/dL 10.6 (H) ?24 hour urine ? Impression/Plan: Doing well s/p left PCNL, pending follow up renal u/s . 1) Marked hypercalciuria. Discussed may be related to hyperPTH or sarcoidosis. She has seen Dr Mcmahon and is waiting to discuss final plans with her. We discussed this may represent a complex combination of several factors, and thus should pursue nephrology consultation to address. -Consult with Dr Akers today in multi-disciplinary metabolic stone clinic regarding management of hypercalciuria in setting of intermittent hypercalcemia, with history of sarcoidois. ?? 2)Hyperoxaluria. We discussed a lower oxalate diet and I have coordinated consultation with Kristopher Jhaveri for nutrition consultation today in multi- disciplinary metabolic stone clinic . 3)Await renal u/s. I have ordered another u/s but she requests to have this done at [facility] and would call to review findings. Tereza Jhaveri, RD - 12/31/2018 4:30 PM EDT Nutrition Intervention for the Management of Kidney Stone Disease Assessment/Nutrition Diagnosis: Pt at increased nutritional lithogenic risk related to: - excessive sodium intake - intake of high-oxalate foods - excessive calorie intake resulting in overweight 24-hour Urine Results (mL/24 hours): Ox 64, Calcium 423, Na 259 Estimated body mass index is 48.26 kg/m?? as calculated from the following: Height as of 09/27/18: 167.6 cm (5' 6). Weight as of 12/23/18: 135.6 kg (299 lb). Patient Interview: Pt reports long history of weight fluctuations, as much as 120 lbs of losing and gaining. Pt reports most recently she has lost ~20 lbs. Discussed ways that she could reduce oxalate intake, sodium intake and caloric intake to make healthier choices. Intervention: - Instructed pt on Low-Oxalate Food choices - Provided diet education materials on low oxalate diet and sample meal plan. Monitor/Evaluate: 1) Pt will reduce intake of high oxalate foods and decrease portion sizes. 2) Follow up 24 hour urine analysis will show progress towards meeting goals JACINTO SEPULVEDA documented in this encounter Plan of Treatment Upcoming Encounters Date Type Specialty Care Team Description 03/15/2022 Office Visit Neurology Ryann Barfield APRN [facility] DR DENISA [place], [place] [address] 03/23/2022 Appointment Radiology Hailey Mcclendon MD [facility] [address] [place] [address] 03/23/2022 Laboratory Appointment Lab 03/23/2022 Office Visit Gastroenterology Hailey Mcclendon MD [facility] [address] [place] [address] 05/23/2022 Procedure visit Maxillofacial Surgery Corby Montes MD [facility] [address] [place] [address] documented as of this encounter Visit Diagnoses Diagnosis Nephrolithiasis Calculus of kidney documented in this encounter Care Teams Trumpet Player Relationship Specialty Start Date End Date Albert Zuleta MD PCP - General Family Medicine 01/17/17 10/26/21 [address] [place] [address] documented as of this encounter
--- OUTSIDE RECORDS SUMMARY | 2022-02-08 01:56 | XMS_ITS | Encounter Summary ---
:1960 Author Organization [facility] [place] [address] Care Team Providers Name Role Phone Albert Zuleta MD Primary Care Provider Encounter Details Date Type Department Care Team Description 12/01/2018 Orders Only General Surgery at [facility] [place] [place] Emily Mcmahon, Hypercalcemia [facility] [place] [address] [facility] [phone] GENERAL SURGERY [place], [place] [address] (Wo rk) Social History Tobacco [...] SHMUEL [facility] [address] [place], [place] [address] 03/23/2022 Appointment Radiology Hailey Mcclendon MD [facility] R[place] [address] 03/23/2022 Laboratory Appointment Lab 03/23/2022 Office Visit Gastroenterology Hailey Mcclendon MD [facility] [place] [address] 05/23/2022 Procedure visit Maxillofacial Surgery Corby Montes MD [facility] Dr [place] [address] documented as of this encounter Procedures Procedure Name Priority Date/Time Associated Diagnosis Comme nts ECHOCARDIOGRAM Routine 01/05/2019 Results for t his TRANSTHORACIC procedure are in the results section. documented in this encounter Results (ABNORMAL) Vitamin D, 25-Hydroxy (09/25/2019 10:07 AM EST) athologist Signature 25-OH Vit D 24 (L) 30 - 100 [facility] Total ng/mL [facility] Comment: As of 2019, 25-hydroxyvitamin D chace ting has moved from the [employer] to the Baljit Mirta. No substantial change in me asured values is expected. Specimen Anatomical Collection Method Collection Time Receive d Time (Source) Location / / Volume Laterality Blood specimen 09/25/2019 10:07 0 (specimen) AM EST 10:49 AM EST Resulting Agency Comment Spec In Lab Emily Mcmahon MD CHEMISTRY ORDERABLES Performing Organization Address City/State/[place] [address] (ABNORMAL) PTH (09/25/2019 10:07 AM EST) athologist Signature PTH 11 (L) 15 - 65 [facility] [place] pg/mL [facility] Specimen Anatomical Collection Method Collection Time Receive d Time (Source) Location / / Volume Laterality Blood specimen 09/25/2019 10:07 0 (specimen) AM EST 10:25 AM EST Resulting Agency Comment Spec In Lab Emily Mcmahon MD CHEMISTRY ORDERABLES Performing Organization Address City/State/ZIP Code Phon e Number [place] [phone] Echo Transthoracic (Complete) (01/05/2019) Specimen (Source) Anatomical Location Collection Method / Collectio n Time Received Time / Laterality Volume 01/05/2019 Narrative [facility] - 01/05/2019 10:04 AM ED T Procedure: ?Transthoracic Echocardiogram Patient: ?TARA SUMMERS ?(Age): 1960(58y) Med Rec#: ? [id number] ?Sex: ?F ? Site Loc: ? Ht / Wt: ??(cm)/ (kg) ? Pt. Loc: ? Study Date: ?? 01/04/2019 ?Pt. Type: Tape: ? Reading: Juancarlos Leo ([id number]) Machine Grinder: Yuni Casillas ([id number]) Interpreting Fellow: Yuni Casillas ([id number]) Diagnosis: SUMMARY: 1. Limited TTE performed by hotel reservation agent card iology fellow to evaluate ventricular function. The LVEF is severe ly reduced. Visually esitmated ejection fraction is 15% with diffuse hy pokinesis and septal abnormalities in the setting of left bun dle branch block. 2. The right ventricle is normal in size and systolic function. PASP could not be assessed due to inadequate tricuspid regurgitation jet. 3. There is probably at least mild to mo derate mitral regurgitation. 4. Recommend full echocardiogram. Findings ? : Left Ventricle: ? Global left ventri cular systolic function is severely reduced. ??Ejection fraction is estimated to be 15%. ?There is diffuse hypokinesis prese nt. ?There is a left ventricular septal wall motion abnormality observed, possibly due to the presence of a left b undle branch block. ?The ??basal anteroseptal, basal an terior, basal anterolateral, basal inferolateral, basal inferior, basal inf eroseptal, mid anteroseptal, mid anterior, mid anterolateral, mid inferol ateral, mid inferior, mid inferoseptal, apical septal, apical ante rior, apical lateral, and apical inferior wall segments are hypoki netic (score 2). ?Overall wallmotion score index is ??2.00 Left Atrium: ? The left atrium is pr obably normal in size. Right Ventricle: ? Right ventricular global systolic function is probably normal. ?Pulmonary artery hypertension coul d not be assessed due to inadequate tricuspid regurgitation jet. Right Atrium: ? The right atrium is probably normal in size. Mitral Valve: ? The mitral valve is probably normal. ?There is moderate (2+/4+) mitral r egurgitation present. Tricuspid Valve: ? There is no evide nce of tricuspid valve regurgitation present. Wall Motion: Segment Name ?Rest ? Base-Anteroseptal ?? Hypokinetic ? Base-Anterior ? Hypokinetic ? Base-Anterolateral ??Hypokinetic ? Base-Posterolateral Hypokinetic ? Base-Inferior ? Hypokinetic ? Base-Inferoseptal ?? Hypokinetic ? Mid-Anteroseptal ?Hypokinetic ? Mid-Anterior ?Hypokinetic ? Mid-Anterolateral ?? Hypokinetic ? Mid-Posterolateral ??Hypokinetic ? Mid-Inferior ?Hypokinetic ? Mid-Inferoseptal ?Hypokinetic ? Ogden-Septal ? Hypokinetic ? Ogden-Anterior ? Hypokinetic ? Ogden-Lateral ?Hypokinetic ? Ogden-Inferior ? Hypokinetic ? Ogden-Tip ?Hypokinetic ? This report has been electronically sign ed by: _ Juancarlos Monae. MD Ahmet ? 01/05/2019 10 :03:57 Images [facility] Procedure Note Juancarlos Leo MD - 01/05/2019Formatt ing of this note might be different from the original. Procedure: Transthoracic Echocardiogram Patient: TARA JIMENEZ(Age): [birth year](58y) Med Rec#: [id number] Sex: F Site Loc: Ht / Wt: (cm)/ (kg) Pt. Loc: Study Date: 01/04/2019 Pt. Type: Tape: Reading: Juancarlos Leo. ([id number]) Machine Grinder: Yuni Casillas ([id number]) Interpreting Fellow: Yuni Casillas ([id number]) Diagnosis: SUMMARY: 1. Limited TTE performed by hotel reservation agent card iology fellow to evaluate ventricular function. The LVEF is severe ly reduced. Visually esitmated ejection fraction is 15% with diffuse hy pokinesis and septal abnormalities in the setting of left bun dle branch block. 2. The right ventricle is normal in size and systolic function. PASP could not be assessed due to inadequate tricuspid regurgitation jet. 3. There is probably at least mild to mo derate mitral regurgitation. 4. Recommend full echocardiogram. Findings : Left Ventricle: Global left ventricular systolic function is severely reduced. Ejection fraction is e stimated to be 15%. There is diffuse hypokinesis present. There is a left ventricular septal wall motion abnormality observed, possibly due to the presence of a left b undle branch block. The basal anteroseptal, basal anterior, basal anterolateral, basal inferolateral, basal inferior, basal inf eroseptal, mid anteroseptal, mid anterior, mid anterolateral, mid inferol ateral, mid inferior, mid inferoseptal, apical septal, apical ante rior, apical lateral, and apical inferior wall segments are hypoki netic (score 2). Overall wallmotion score index is 2.00 Left Atrium: The left atrium is probably normal in size. Right Ventricle: Right ventricular globa l systolic function is probably normal. Pulmonary artery hypertension could not be assessed due to inadequate tricuspid regurgitation jet. Right Atrium: The right atrium is probab ly normal in size. Mitral Valve: The mitral valve is probab ly normal. There is moderate (2+/4+) mitral regurg itation present. Tricuspid Valve: There is no evidence of tricuspid valve regurgitation present. Wall Motion: Segment Name Rest Base-Anteroseptal Hypokinetic Base-Anterior Hypokinetic Base-Anterolateral Hypokinetic Base-Posterolateral Hypokinetic Base-Inferior Hypokinetic Base-Inferoseptal Hypokinetic Mid-Anteroseptal Hypokinetic Mid-Anterior Hypokinetic Mid-Anterolateral Hypokinetic Mid-Posterolateral Hypokinetic Mid-Inferior Hypokinetic Mid-Inferoseptal Hypokinetic Ogden-Septal Hypokinetic Ogden-Anterior Hypokinetic Og[place]-Lateral Hypokinetic Og[place]-Inferior Hypokinetic Og[place]-Tip Hypokinetic This report has been electronically sign ed by: _ Juancarlos Leo MD 01/05/2019 10:03:57 Images reviewed and interpretation verif ied [facility] Cardiac Ultrasound Laboratory Unknown ECHO ORDERABLES Performing Organization Address City/State/ZIP Code Phon e Number [facility] documented in this encounter Visit Diagnoses Diagnosis Hypercalcemia documented in this encounter Care Teams Music Copyist Relationship Specialty Start Date End Date Albert Zuleta MD PCP - General Family Medicine 01/17/17 10/26/21 [address] [place] [address] documented as of this encounter
--- OUTSIDE RECORDS SUMMARY | 2022-02-08 01:56 | XMS_ITS | Encounter Summary ---
:1960 [place] [address] Care Team Providers Name Role Phone Albert Zuleta MD Primary Care Provider Encounter Details Date Type Department Care Team Description 11/28/2018 Laboratory Appointment Lab 3L [facility] [place] [address] Social History Tobacco Use Types Packs/Day [...] Visit Neurology Ryann Barfield APRN [facility] [address] [place], [place] [address] 03/23/2022 Appointment Radiology Hailey Mcclendon MD [facility] [address] [place] [address] 03/23/2022 Laboratory Appointment Lab 03/23/2022 Office Visit Gastroenterology Hailey Mcclendon MD [facility] [address] [place] [address] 05/23/2022 Procedure visit Maxillofacial Surgery Corby Montes MD [facility] Dr [place] [address] documented as of this encounter Procedures Procedure Name Priority Date/Time Associated Diagnosis Comme nts PTH Routine 11/28/2018 1:04 PM Nephrolithiasis Result s for this EDT procedure are i n the results section . documented in this encounter Results PTH (11/28/2018 1:04 PM EDT) athologist Signature PTH 39 15 - 65 [facility] pg/mL [facility] Specimen Anatomical Collection Method Collection Time Receive d Time (Source) Location / / Volume Laterality Blood specimen 11/28/2018 1:04 PM 019 1:11 (specimen) EDT PM EDT Resulting Agency Comment Spec In Lab Crow Galvin Jr., MD CHEMISTRY ORDERABLES Performing Organization Address City/State/[place] [address] documented in this encounter Visit Diagnoses Diagnosis Nephrolithiasis Calculus of kidney documented in this encounter Care Teams Blood Bank Order Control Clerk Relationship Specialty Start Date End Date Albert Zuleta MD PCP - General Family Medicine 01/17/17 10/26/21 [place] [address] documented as of this encounter
--- OUTSIDE RECORDS SUMMARY | 2022-02-08 01:56 | XMS_ITS | Encounter Summary ---
:1960 Author Organization [facility] [place] [address] Care Team Providers Name Role Phone Albert Zuleta MD Primary Care Provider Encounter Details Date Type Department Care Team Description 01/04/2019 Hospital Encounter DHART at Ace Perea MD [facility] [address] [address] [place] [address] [phone] (Wo rk) Social History Tobacco Use Types [...] Barfield, SHMUEL [facility] NEUROLOGY [place], [place] [address] 03/23/2022 Appointment Radiology Hailey Mcclendon MD [facility] [address] [place] [address] 03/23/2022 Laboratory Appointment Lab 03/23/2022 Office Visit Gastroenterology Hailey Mcclendon MD [facility] [address] [place] [address] 05/23/2022 Procedure visit Maxillofacial Surgery Corby Montes MD [facility] [place] [address] documented as of this encounter Visit Diagnoses Not on filedocumented in this encounter Care Teams Crab Steamer Relationship Specialty Start Date End Date Albert Zuleta MD PCP - General Family Medicine 01/17/17 10/26/21 [place] [address] documented as of this encounter
--- OUTSIDE RECORDS SUMMARY | 2022-02-08 01:56 | XMS_ITS | Encounter Summary ---
:1960 Author Organization [facility] [place] [address] Care Team Providers Name Role Phone Albert Zuleta MD Primary Care Provider Encounter Details Date Type Department Care Team Description 01/04/2019 Ancillary Procedure Radiology Library at Ace Henry MD [facility] [place] [address] [place] [address] [phone] (Wo rk) Social History Tobacco Use Types [...] Neurology Ryann Barfield, SHMUEL [facility] NEUROLOGY [place], [place] [address] 03/23/2022 Appointment Radiology Hailey Mcclendon MD [facility] R[place]ARD [place] [address] 03/23/2022 Laboratory Appointment Lab 03/23/2022 Office Visit Gastroenterology Hailey Mcclendon MD [facility] [place] [address] 05/23/2022 Procedure visit Maxillofacial Surgery Corby Montes MD [facility] [place] [address] documented as of this encounter Procedures Procedure Name Priority Date/Time Associated Diagnosis Comme nts FILM LIBRARY Routine 01/04/2019 7:12 PM Results f or this STORAGE ONLY DX EDT procedure ar e in CHEST the results section. documented in this encounter Results Film Library- Storage Only DX Chest (01/04/2019 7:12 PM EDT) Specimen (Source) Anatomical Location Collection Method / Collectio n Time Received Time / Laterality Volume Narrative RAD - 01/04/2019 7:12 PM EDT This exam is auto-finalizing. It's purpo se is for storage only. Ace Henry MD IMG FILM LIBRARY ORDERABLES Performing Organization Address City/State/ZIP Code Phon e Number [place], [place] documented in this encounter Visit Diagnoses Not on filedocumented in this encounter Care Teams Facilities Planner Relationship Specialty Start Date End Date Albert Zuleta MD PCP - General Family Medicine 01/17/17 10/26/21 [address] [place] [address] documented as of this encounter
--- OUTSIDE RECORDS SUMMARY | 2022-02-08 01:56 | XMS_ITS | Encounter Summary ---
:1960 Author Organization [facility] [place] [address] Care Team Providers Name Role Phone Albert Zuleta MD Primary Care Provider Encounter Details Date Type Department Care Team Description 01/04/2019 Ancillary Procedure Radiology Library at Ace Henry MD [facility] [place] [address] [place] [address] [phone] (Wo rk) Social History Tobacco Use Types [...] 03/15/2022 Office Visit Neurology Ryann Barfield, SHMUEL [facility] NEUROLOGY [place], [place] [address] 03/23/2022 Appointment Radiology Hailey Mcclendon MD [facility] [place] [address] 03/23/2022 Laboratory Appointment Lab 03/23/2022 Office Visit Gastroenterology Hailey Mcclendon MD [facility] [place] [address] 05/23/2022 Procedure visit Maxillofacial Surgery Corby Montes MD [facility] [place] [address] documented as of this encounter Procedures Procedure Name Priority Date/Time Associated Diagnosis Comme nts FILM LIBRARY Routine 01/04/2019 7:13 PM Results f or this STORAGE ONLY CT EDT procedure ar e in ABDOMEN AND PELVIS the resul ts section. documented in this encounter Results Film Library- Storage Only CT Abdomen & Pelvis (01/04/2019 7:13 PM EDT) Specimen (Source) Anatomical Location Collection Method / Collectio n Time Received Time / Laterality Volume Narrative RAD - 01/04/2019 7:13 PM EDT This exam is auto-finalizing. It's purpo se is for storage only. Ace Henry MD IMJean Pierre FILM LIBRARY ORDERABLES Performing Organization Address City/State/ZIP Code Phon e Number [place], [place] documented in this encounter Visit Diagnoses Not on filedocumented in this encounter Care Teams Hand Trimmer Relationship Specialty Start Date End Date Albert Zuleta MD PCP - General Family Medicine 01/17/17 10/26/21 [place] [address] documented as of this encounter
--- OUTSIDE RECORDS SUMMARY | 2022-02-08 01:56 | XMS_ITS | Encounter Summary ---
:1960 Author Organization [facility] [place] [address] Care Team Providers Name Role Phone Albert Zuleta MD Primary Care Provider Reason for Visit Reason Comments Follow-up Encounter Details Date Type Department Care Team Description 12/23/2018 Office Visit General Surgery at Ace Henry MD Incisional hernia, [facility] without obstruction or [facility] DR addie Ragland GENERAL SURGERY [place] [id number] [phone] Social History Tobacco Use Types Packs/Day Years [...] Sign Reading Time Taken Comments Blood Pressure 134/66 12/23/2018 10:49 AM EDT Pulse - - Temperature - - Respiratory Rate - - Oxygen Saturation - - Inhaled Oxygen Concentration - - Weight 135.6 kg (299 lb) 12/23/2018 10:49 AM EDT Height - - Body Mass Index 48.26 09/27/2018 3:40 AM EST documented in this encounter Progress Notes Ace Henry MD - 12/23/2018 10:45 AM EDT Ms. Samayoa returns to clinic today. She has had her nephrolithiasis treated and is feeling better on this front. She has not managed to maintain or extend her weight loss at present. On exam, BP 134/66 Wt 135.6 kg (299 lb) LMP (LMP Unknown) BMI 48.26 kg/m?? Abdomen soft, NT/ND, ventral hernia remains present but non-tender. Assessment/Plan: Ms. Samayoa is a 58 year old female with ventral hernia. I've suggested that we arrange routine screening colonoscopy, continue efforts at maximizing and maintaining weight loss and arrange office re-evaluation for consideration of ventral hernia repair in approximately three months' time. Ms. Samayoa appears to be in agreement with this plan. documented in this encounter Plan of Treatment Upcoming Encounters Date Type Specialty Care Team Description 03/15/2022 Office Visit Neurology Ryann Barfield APRN [facility] [address] [place] [address] 03/23/2022 Appointment Radiology Hailey Mcclendon MD [facility] [address] [place] [address] 03/23/2022 Laboratory Appointment Lab 03/23/2022 Office Visit Gastroenterology Hailey Mcclendon MD [facility] [address] [address] 05/23/2022 Procedure visit Maxillofacial Surgery Corby Montes MD [facility] [address] [place] [address] documented as of this encounter Visit Diagnoses Diagnosis Incisional hernia, without obstruction o r gangrene Incisional hernia without mention of obs truction or gangrene documented in this encounter Care Teams Driller Brake Lining Relationship Specialty Start Date End Date Albert Zuleta MD PCP - General Family Medicine 01/17/17 10/26/21 [address] [place] [address] documented as of this encounter
--- OUTSIDE RECORDS SUMMARY | 2022-02-08 01:56 | XMS_ITS | Encounter Summary ---
:1960 Author Organization [facility] [place] [address] Care Team Providers Name Role Phone Albert Zuleta MD Primary Care Provider Reason for Visit Reason Comments Hospital Transfer Abdominal Pain Incarcerated Hernia Auth/Cert Specialty Diagnoses / Procedures Referred By Contact Refer red To Contact Diagnoses Shock Other cardiomyopathy Referral ID Status Reason Start Date Expiration Date Visits Requ ested Visits Authorized [id number] 1 1 Encounter Details Date Type Department Care Team Description 01/05/2019 Surgery Main Operating Room Ace Henry MD @[facility] DR WITH/WITHOUT BIOPSY(S) [facility] GENERAL SURGE RY (WRVU 12.54) [place] [address] [place] [address] [phone] Social History Tobacco Use Types Packs/Day Years [...] Sign Reading Time Taken Comments Blood Pressure 90/75 01/04/2019 11:50 PM EDT Pulse 120 01/05/2019 4:15 AM EDT Temperature 38.7 ??C (101.7 ??F) 01/05/2019 4:15 AM EDT Respiratory Rate 22 01/05/2019 4:15 AM EDT Oxygen Saturation 97% 01/05/2019 4:15 AM EDT Inhaled Oxygen Concentration - - [...] review: ?? Patient initially presented to the [facility] ED with acute onset abdominal pain and nausea/vomiting, as well as worsening dyspnea. She was tachycardic and hypotensive with labwork notable for a metabolic acidosis, a leukocytosis of 25, 00 and a lactate of 15. CT scan at [facility] showed partial small bowel obstruction secondary to incarcerated anterior wall abdominal hernia. She received ceftriaxone and flagyl as well as 1.5 L IVF. She was transferred to the [facility] ED for further management. ?? In the [...] Obstruction with ischemic gut Patient arrived to [facility] ED with severe sepsis with stress induced [...] Component Value Units Date/Time C. Difficile Screen [[id number]] Collected: 01/11/19 1333 Lab Status: Final result Specimen: Stool Updated: 01/11/19 1609 C Diff Screen Negative Comment: C. diff Negative Clostridium difficile is not present in the specimen. If patient is having diarrhea suspected to be from an infectious cause, then Contact Precautions are still required. Lower Respiratory Culture Sputum Induced [[id number]] (Abnormal) Collected: 01/11/19 0448 Lab Status: Preliminary [...] back by Carmen Reddy RN Blood culture [[id number]] Collected: 01/08/19 1630 Lab Status: Final result Specimen: Blood Updated: 01/13/19 2301 Blood Culture No growth at 5 days. Urine culture [[id number]] Collected: 01/05/19 1035 Lab Status: Final result Specimen: Indwelling Catheter Urine Updated: 01/06/19 0739 Urine Culture No growth (Less than 1,000 cfu/ml). Blood culture [[id number]] Collected: 01/05/19 0130 Lab Status: Final result [...] AM Ace Henry MD General Surgery at [place] Arrive at: [place] [facility] [phone] 03/28/2019 11:00 AM Ace Henry MD General Surgery at [place] Arrive at: [facility] [place] [phone] Your Inpatient Doctor(s) at [facility]: Attending- Kelsey Eaton MD Resident- TRACE James MD Director Of Public Health- Jesus Benson DO [facility] Department of General Surgery Discharge Instructions CALL [...] incision(s) is closed with: [x] Tammy - Somerset are typically removed 7-14 days after surgery. [...] with the Surgery nurses. The number is [phone]. Please call this number when you BIANCA drain output has reached 30 mL or less for two or more consecutive days, and the nurses will assist you in scheduling an appointment in clinic to have your drain removed. - During the night or weekends call the [facility] set up operator at [phone] and ask to speak to the surgery resident yard conductor for general surgery. Please note: Your surgeon may not be Construction Estimator, especially during the night or on weekends, [...] 9 AM. Please call the clinic at [phone] to confirm or reschedule. If you need a prior authorization, please call the General Surgery Clinic nurses [phone] for prior authorizations assistance. General Instructions Gabo [...] AM Ace Henry MD General Surgery at [place] Arrive at: [place] [facility] [phone] 03/28/2019 11:00 AM Ace Henry MD General Surgery at [place] Arrive at: [facility] [place] Provider Contact Information: MD Shannan Roger DR / [facility] [id number] Discharge References/Attachments: Discharge References/Attachments None documented in [...] AM Ace Henry MD General Surgery at [place] Arrive at: [place] [phone] 03/28/2019 11:00 AM Ace Henry MD General Surgery at [place] Arrive at: [place] [phone] Your Inpatient Doctor(s) at [facility]: Attending- Kelsey Eaton MD Resident- TRACE James MD Director Of Public Health- Jesus Benson DO [facility] Department of General Surgery Discharge Instructions CALL [...] incision(s) is closed with: [x] Tammy - Somerset are typically removed 7-14 days after surgery. [...] with the Surgery nurses. The number is [phone]. Please call this number when you BIANCA drain output has reached 30 mL or less for two or more consecutive days, and the nurses will assist you in scheduling an appointment in clinic to have your drain removed. - During the night or weekends call the [facility] set up operator at [phone] and ask to speak to the surgery resident yard conductor for general surgery. Please note: Your surgeon may not be Construction Estimator, especially during the night or on weekends, [...] 9 AM. Please call the clinic at [phone] to confirm or reschedule. If you need a prior authorization, please call the General Surgery Clinic nurses [phone] for prior authorizations assistance. documented in this [...] spent <30 minutes (Day of Discharge Code 99159) involved in the final examination of the [...] 01/15/2019 11:27 AM EDT Office of Care Management/Fluid Pump Operator Patient Name: Blossom Pacheco : 1960 Patient has been offered an Acute Rehab bed at [facility]. [facility] arranged for a 1300 transport. Ambulance will need: Medicare ambulance form completed and signed (MD or Field Adjuster RN/ERP MANAGER) Copy of patient demographics [place] Out of Hospital DNR/DNI order, if active No MD to MD report necessary Please call Nursing Report to [phone], ask for technical planner. Info to accompany patient: Narcotic Prescriptions Copies of Medication Administration Records and IV sheets for past 10 days. Plan: Fluid Pump Operator will be available to the patient and Field Adjuster-RN and/or Soaking Room Operator for further assistance. Patient will be discharged to: [place] [id number] Celestina Moseley Fluid Pump Operator Paulino Sauer MD - 01/15/2019 7:11 AM [...] shock. Surgery was consulted upon arrival to [facility], and she was taken emergently to OR [...] Incision c/d/i, mild erythema around wound margins. Somerset intact. Neuro: Grossly intact, moving all four [...] to get up from bed -Please page [phone] with any questions Paulino Sauer MD 01/15/2019 [facility] Surgery p.[phone] Morales Awad MSW - 01/14/2019 [...] for considering application for [place] Choices for Care/Care Home Care Medicaid. Pt noted remembering other potential asset and requested follow-up by RS to review. I have forwarded this request. Following for ERP MANAGER and care management support through disposition. da Gutierrez RN - 01/14/2019 9:59 AM EDT Based on discussions with the multi-disciplinary healthcare team, the patient would benefit from acute rehab level of care at discharge. ?? I have met with the patient/market survey representative to discuss discharge planning needs. I have provided the [facility], Office of Care Management letter from the E Commerce Manager pertaining to rehab referrals. I have also provided a letter describing our affiliations within the [facility] and educated them about their right to choose where referrals are placed. ?? I reviewed the different levels of rehab including SNF, swing, acute and LTAC with the patient/market survey representative. ?? The patient/market survey representative has been provided a list of facilities within their preferred geographic area. ?? I have requested that the patient/market survey representative provide at least three choices for referral. ?? The patient/market survey representative have requested referrals to: ?? 1. [facility] ?? 2. [facility] ([facility]) ?? 3. [facility] [place] ([facility]ally [facility]) ?? Expected date of discharge: 01/16/19 Note routed to Fluid Pump Operator who will communicate referrals to facilities and [...] - Will continue to follow. Please page [phone] during the day or [phone] in the evenings for questions. Ted Rajan [...] ??And ventral hernia presenting in transfer form [facility] with acute hypoxic respiratory failure and shock [...] ??And ventral hernia presenting in transfer form [facility] with acute hypoxic respiratory failure and shock [...] Dysphagia soft diet, can consider advancing pending BUS MONITOR eval - Abdominal binder per surgery, does [...] of two midnights or is on the [facility] inpatient only procedure list (status C) due to: Shock requiring surgery Mateo Lyles RCP - 01/13/2019 11:05 PM EDT Pt compliant with home CPAP ?? Plan: Continue to offer assistance with home CPAP for MOSES Idris Thompson - 01/13/2019 5:17 PM EDT Referral received from Nora Arriaga for [place] Medicaid assistance on 01/06. Met with pt on 01/13 to introduce myself and purpose of [place] secondary coverage/assistance needed. [place] screening results found pt financially eligible for In/Out Program due to [place]. [place] application (Form 202MED) completed on 01/13 Authorized Entry Level Staff Accountant Form, aka Release of Information (Form 139REP) completed and designated toAuthor. Copy made of all application documents. Mailed all documents to [place] DCF/ESD Application and Document Processing Center on 01/14 for submissionand processing. Jessica Barnes RD - 01/13/2019 2:14 PM EDT Nutrition Progress Note Blossom Pacheco is a 58 y.o. female Reason for intervention: Follow up Nutrition Recommendations: Consider recall BUS MONITOR, Regular diet with consistency per BUS MONITOR Encourage bananas for stool thickening Patient Active [...] failure 'don't know if it's failure ??? long-term current use of opiate analgesic PCP ??? [...] of this encounter: 136.1 kg (300 lb). [place] Body Weight (IBW): 61kg UBW: no changes [...] banana) with good tolerance. Last seen by BUS MONITOR on 01/09 when with NGT. Nutrition to [...] - Will continue to follow. Please page [phone] during the day or [phone] in the evenings for questions. Recommendations discussed [...] ??And ventral hernia presenting in transfer form [facility] with acute hypoxic respiratory failure and shock [...] ??And ventral hernia presenting in transfer form [facility] with acute hypoxic respiratory failure and shock [...] Dakota Vines - 01/12/2019 7:10 PM EDT Quality Control Lab Technician Encounter Note Patient Name: Blossom Pacheco : [id number] MR#: [id number] Admit Date: 01/04/2019 8:36 PM Hospital Day 8 days Narrative: Visited patient on rounds at nurse's request. Nurse said patient had been anxious and confused today, and longing to go home. Patient was lying on bed, awake and calm. Assessment: Ms. Pacheco declined visit, stating that she is not buddhist. Intervention and Outcome: Offered non-buddhist visit. Patient declined any intervention. Follow-up: Nurse [...] ??And ventral hernia presenting in transfer form [facility] with acute hypoxic respiratory failure and shock [...] M.D. PGY-2 Internal Medicine 01/12/2019 Red Team [phone] Associated attestation - Kelsey Eaton MD - [...] of two midnights or is on the [facility] inpatient only procedure list (status C) due [...] - Will continue to follow. Please page [phone] during the day or [phone] in the evenings for questions. Recommendations discussed [...] her home commode. She is listening to pocket secretary assembler conversations and believes them to be about [...] - Will continue to follow. Please page [phone] during the day or [phone] in the [...] ??And ventral hernia presenting in transfer form [facility] with acute hypoxic respiratory failure and shock [...] see if this is elevated PTH as peg driver versus sarcoid vs nutrtional if phos continues [...] - Will continue to follow. Please page [phone] during the day or [phone] in the [...] ??And ventral hernia presenting in transfer form [facility] with acute hypoxic respiratory failure and shock [...] Or ??? acetaminophen 975 mg Rectal Q8H EBRT ??? insulin regular human 0.5-16 Units/hr Intravenous [...] ??And ventral hernia presenting in transfer form [facility] with acute hypoxic respiratory failure and shock [...] see if this is elevated PTH as peg driver versus sarcoid vs nutrtional For reference labs [...] SCDs - Diet/Fluids: NPO Dispo: Transfer to [facility] status Code Status: Full code TRACE James M.D. PGY-2 Internal Medicine 01/10/2019 Red team Pager [phone] Associated attestation - Andria Pena III, MD [...] of two midnights or is on the [facility] inpatient only procedure list (status C) due [...] the patient's provider, NAUN B2 on pager [phone], regarding above. Blossom Pacheco is a 58 y.o. 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 Adm weight (kg): 138.3 kg [place] body weight: 61.4 kg (135 lb 7.1 oz) Adjusted ideal body weight: 92.3 kg (203 lb 9.2 oz) Nutrition needs estimated at: 7020-0497 calories (hypocaloric) and 95+ grams protein daily. JACINTO CRUZ Pager # [phone] Barbara Lopez, BUS MONITOR - 01/09/2019 10:21 AM EDT Speech-Language Pathology [...] hours to ensure emptying. Barbara Lopez MA CCC-BUS MONITOR Inpatient Rehabilitation Medicine pager:# [phone] Marjorie Verdin, RD - 01/09/2019 9:15 AM [...] performed by Crow Galvin Jr., MD at [facility] OR ??? PRG FLUOROSCOPY EXAM UP TO 1 HR PH[facility] PROV N/A 09/26/2018 FLUOROSCOPY (WRVU 0.17) performed by Crow Galvin Jr., MD at [facility] OR ??? PRG FLUOROSCOPY EXAM UP TO 1 HR PHY OR OTH TH CARE PROV N/A 11/07/2018 FLUOROSCOPY (WRVU 0.17) performed by Crow Galvin Jr., MD at [facility] OR ??? PRG US GUIDE INTRAOP Right 09/26/2018 ULTRASONIC GUIDANCE, INTRAOP (WRVU 1.2) performed by Crow Galvin Jr., MD at [facility] OR ? ? PRO CYSTO W URETEROSCOPY &/OR PYELOSCOPY, DX Right 09/26/2018 CYSTOURETEROSCOPY, DIAGNOSTIC (WRVU 5.75) performed by Crow Galvin Jr., MD at [facility] OR ? ? PRO CYSTO W URETEROSCOPY &/OR PYELOSCOPY, DX Left 11/07/2018 CYSTOURETEROSCOPY, DIAGNOSTIC (WRVU 5.75) performed by Crow Galvin Jr., MD at [facility] OR ??? PRO CYSTOSCOPY, INSERT URETERAL STENT Right 07/10/2018 CYSTO, STENT PLACEMENT (WRVU 2.82) performed by Viky Sears MD at [facility] OR ??? PRO CYSTOSCOPY, REMV CALCULUS, COMPLIC Right 09/26/2018 CYSTO, REMOVAL OF STENT, FOREIGN BODY, CALCULUS, COMPLICATED (WRVU 5.2) performed by Crow Galvin MD at [facility] OR ??? PRO CYSTOURETHROSCOPY, URETER CATHETER [...] 12.54) performed by Ace Henry MD at [facility] OR ??? PRO EXPLORATORY OF ABDOMEN N/A 01/07/2019 @EXPLORATORY LAPAROTOMY, WITH/WITHOUT BIOPSY(S) (WRVU 12.54) performed by Ace Henry MD at [facility] OR ??? PRO FREEING BOWEL ADHESION, ENTEROLYSIS N/A 01/05/2019 @LYSIS OF ADHESIONS, ABD. (WRVU 18.46) performed by Ace Henry MD at [facility] MAIN OR ? ? PRO PERCUTANEOUS NEPHROSTOLITHOTOMY/PYELOSTOLITHOTOMY > 2 CM Right 09/26/2018 NEPHROLITHOTOMY, (PCNL) PERCUTANEOUS, OVER 2CM (WRVU 23.5) performed by Crow Galvin Jr., MD at [facility] OR ? ? PRO PERCUTANEOUS NEPHROSTOLITHOTOMY/PYELOSTOLITHOTOMY > 2 CM Left 11/07/2018 NEPHROLITHOTOMY, (PCNL) PERCUTANEOUS, OVER 2CM (WRVU 23.5) performed by Crow Galvin Jr., MD at [facility] MAIN OR ? ? PRO PLIN NEPHROSTOMY CATH PRQ NEW ACCESS RS&I Right 09/26/2018 NEPHROSTOMY CATHETER, PERC, INC DX NEPHROSTOGRAM/URETEROGRAM, IMG GUIDANCE (WRVU 4.25) performed byCrow Galvin Jr., MD at [facility] OR ? ? PRO PLIN NEPHROSTOMY CATH PRQ NEW ACCESS RS&I Left 11/07/2018 NEPHROSTOMY CATHETER, PERC, INC DX NEPHROSTOGRAM/URETEROGRAM, IMG GUIDANCE (WRVU 4.25) performed byCrow Galvin Jr., MD at [facility] MAIN OR ??? PRO RENAL ENDOSCOPY, TREATMENT Left 11/07/2018 RENAL ENDOSCOPY W\FULG, W\WO\BX, VIA NEPHROSTOMY (WRVU 6.61) performed by Crow Galvin Jr., MD [facility] MAIN OR ??? PRO RESECT SMALL [...] - Will continue to follow. Please page [phone] during the day or [phone] in the evenings for questions. Recommendations discussed [...] And ventral hernia presenting in transfer form [facility] with acute hypoxic respiratory failure and shock. [...] Procedure Component Value Units Date/Time Urine culture [[id number]] Collected: 01/05/19 1035 Lab Status: Final result Specimen: Indwelling Catheter Urine Updated: 01/06/19 0739 Urine Culture No growth (Less than 1,000 cfu/ml). Blood culture [[id number]] Collected: 01/05/19 0130 Lab Status: Preliminary result [...] And ventral hernia presenting in transfer form [facility] with acute hypoxic res piratory failure and [...] trickle feeds today 10 ml/hr - consult BUS MONITOR ?? Renal/FEK: #AGMA/Lactic Acidosis -likely 2/2 septic [...] Code Rose Schreiber MD, PGY-1 Team Pager [phone] Critical Care Medicine - Blue Team 01/09/2019 [...] her/family during care transition. BENNY Spears Pager: [phone] Dave Dennis RCP - 01/08/2019 1:56 PM [...] - Will continue to follow. Please page [phone] during the day or [phone] in the evenings for questions. Jaxson Ramos [...] And ventral hernia presenting in transfer form [facility] with acute hypoxic respiratory failure and shock. [...] Procedure Component Value Units Date/Time Urine culture [[id number]] Collected: 01/05/19 1035 Lab Status: Final result Specimen: Indwelling Catheter Urine Updated: 01/06/19 0739 Urine Culture No growth (Less than 1,000 cfu/ml). Blood culture [[id number]] Collected: 01/05/19 0130 Lab Status: Preliminary result [...] And ventral hernia presenting in transfer form [facility] with acute hypoxic res piratory failure and [...] Rose Lynnette MD Candie, PGY-1 Team Pager [phone] Critical Care Medicine - Blue Team 01/08/2019 [...] And ventral hernia presenting in transfer form [facility] with acute hypoxic respiratory failure and shock. [...] Procedure Component Value Units Date/Time Urine culture [[id number]] Collected: 01/05/19 1035 Lab Status: Final result Specimen: Indwelling Catheter Urine Updated: 01/06/19 0739 Urine Culture No growth (Less than 1,000 cfu/ml). Blood culture [[id number]] Collected: 01/05/19 0130 Lab Status: Preliminary result [...] And ventral hernia presenting in transfer form [facility] with acute hypoxic res piratory failure and [...] Code Rose Schreiber MD, PGY-1 Team Pager [phone] Critical Care Medicine - Buck Team 01/07/2019 [...] And ventral hernia presenting in transfer form [facility] with acute hypoxic respiratory failure and shock. [...] Procedure Component Value Units Date/Time Urine culture [[id number]] Collected: 01/05/19 1035 Lab Status: Final result Specimen: Indwelling Catheter Urine Updated: 01/06/19 0739 Urine Culture No growth (Less than 1,000 cfu/ml). Blood culture [[id number]] Collected: 01/05/19 0130 Lab Status: Preliminary result [...] And ventral hernia presenting in transfer form [facility] with acute hypoxic res piratory failure and [...] Code Rose Schreiber MD, PGY-1 Team Pager [phone] Critical Care Medicine - Blue Team 01/06/2019 [...] Medicine Surgical help appreciated. Morales Watt MD [facility] Hospital Course 58F transferred from [...] TTE 01/04/2019 1. Limited TTE performed by yard conductor document manager to evaluate ventricular function. The LVEF is [...] documentation on the unit. Morales Watt MD [facility] Clinical Education Specialisttravel administrator [facility] [employer] E Commerce Manager - ICU/Pulmonary/Critical Care [facility] / On license of [facility] Al Sumanth Herimlo, [facility] - 01/05/2019 6:21 AM EDT AMV [...] general surgical input appreciated. Morales Watt MD [facility] Hospital Course 58F transferred from [...] Gas) No results found for: PHART, PO2ART, PNN3YGL Microbiology Results (Last 30 days) No results [...] documentation on the unit. Morales Watt MD [facility] Clinical Education Specialisttravel administrator [facility] [employer] E Commerce Manager - ICU/Pulmonary/Critical Care [facility] / On license of [facility] documented in this encounter H&P Notes Carlos [...] ??And ventral hernia presenting in transfer form [facility] with acute hypoxic respiratory failure and shock s/p ex lap. Brief HPI- The patient was admitted in transfer from [facility]. She was taken emergently to the [...] ??And ventral hernia presenting in transfer form [facility] with acute hypoxic respiratory failure and shock [...] SCDs - Diet/Fluids: NPO Dispo: Transfer to [facility] status Code Status: Full code Carlos Eduardo Tai M.D. PGY-1 Internal Medicine 01/09/2019 Red team Pager [phone] Associated attestation - Andria Pena III, MD [...] of two midnights or is on the [facility] inpatient only procedure list (status C) due to: uncontrolled pain requiring titration of medications to achieve optimal effect and to minimize immediate or severe side effects and resolving sepsis in the setting of incarcerated bowel sp operative repair Ted Rajan MD - 01/05/2019 1:[address] [facility] Department of General Surgery History of Present [...] hypotensive, fluid responsive. She was transferred to [facility] for further management. On arrival patient was [...] failure 'don't know if it's failure ??? long-term current use of opiate analgesic PCP ??? [...] 2.82) performed by Viky Sears MD at [facility] OR ??? PRO CYSTOSCOPY, REMV CALCULUS, COMPLIC Right 09/26/2018 CYSTO, REMOVAL OF STENT, FOREIGN BODY, CALCULUS, COMPLICATED (WRVU 5.2) performed by Crow Galvin MD at [facility] MAIN OR ??? PRO CYSTOURETHROSCOPY, URETER CATHETER Right 07/10/2018 CYSTO, RETROGRADE, URETEROPYELOGRAPHY (WRVU 2.37) performed by Viky Sears MD at [facility] OR ??? PRO CYSTOURETHROSCOPY, URETER CATHETER Right 09/26/2018 CYSTO, RETROGRADE, URETEROPYELOGRAPHY, W/PCNL (WRVU 2.37) performed [facility] [facility] MAIN OR ? ? PRO PERCUTANEOUS NEPHROSTOLITHOTOMY/PYELOSTOLITHOTOMY > 2 CM Right 09/26/2018 NEPHROLITHOTOMY, (PCNL) PERCUTANEOUS, OVER 2CM (WRVU 23.5) performed by Crow Gavlin Jr., MD at [facility] OR ? ? PRO PERCUTANEOUS NEPHROSTOLITHOTOMY/PYELOSTOLITHOTOMY [...] by Crow Galvin Jr., MD [facility] MAIN OR Allergies: Allergies Allergen Reactions [...] file Gets together: Not on file Attends buddhist service: Not on file Active member of [...] Increased RBC Morphology Abnormal Ovalocytes 1-5 /HPF Gregorio Cells 1-5 /HPF Giant Platelets Less than [...] who developed N/V and abdominal pain with [facility] ER impression ofhypotension and leukocytosis/acidosis from this process however appearing [facility]. After appropriate treatment and resuscitation, concern remained about underlying septic state from abdominal process, e.g., ischemia, causing shock. Exploratory laparotomy therefore planned to evaluate for bowel compromise. Ace Henry MD #[id number] My Wilcox MD - 01/05/2019 1:30 AM EDT Critical Care Admission Note Blossom Pacheco is a 58 y.o. 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 HPI: History obtained via chart review: Patient initially presented to the [facility] ED with acute onset abdominal pain and nausea/vomiting, as well as worsening dyspnea. She was tachycardic and hypotensive with labwork notable for a metabolic acidosis, a leukocytosis of 25, 00 and a lactate of 15. CT scan at [facility] showed partial small bowel obstruction secondary to incarcerated anterior wall abdominal hernia. She received ceftriaxone and flagyl as well as 1.5 L IVF. She was transferred to the [facility] ED for further management. In the ED [...] failure 'don't know if it's failure ??? 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 [...] EXAM UP TO 1 HR [facility] PROV N/A 09/26/2018 FLUOROSCOPY (WRVU 0.17) performed by Crow Galvin Jr., MD at [facility] OR ??? PRG FLUOROSCOPY EXAM UP TO 1 HR [facility] PROV N/A 11/07/2018 FLUOROSCOPY (WRVU 0.17) performed by Crow Galvin Jr., MD at [facility] OR ??? PRG US GUIDE INTRAOP Right 09/26/2018 ULTRASONIC GUIDANCE, INTRAOP (WRVU 1.2) performed by Crow Galvin Jr., MD at [facility] OR ? ? PRO CYSTO W URETEROSCOPY &/OR PYELOSCOPY, DX Right 09/26/2018 CYSTOURETEROSCOPY, DIAGNOSTIC (WRVU 5.75) performed by Crow Galvin Jr., MD at [facility] OR ? ? PRO CYSTO W URETEROSCOPY &/OR PYELOSCOPY, DX Left 11/07/2018 CYSTOURETEROSCOPY, DIAGNOSTIC (WRVU 5.75) performed by Crow Galvin Jr., MD at [facility] OR ??? PRO CYSTOSCOPY, INSERT URETERAL STENT Right 07/10/2018 CYSTO, STENT PLACEMENT (WRVU 2.82) performed by Viky Sears MD at [facility] OR ??? PRO CYSTOSCOPY, REMV CALCULUS, COMPLIC Right 09/26/2018 CYSTO, REMOVAL OF STENT, FOREIGN BODY, CALCULUS, COMPLICATED (WRVU 5.2) performed by Crow Galvin MD at [facility] OR ??? PRO CYSTOURETHROSCOPY, URETER CATHETER Right 07/10/2018 CYSTO, RETROGRADE, URETEROPYELOGRAPHY (WRVU 2.37) performed by Viky Sears MD at [facility] OR ??? PRO CYSTOURETHROSCOPY, URETER CATHETER Right 09/26/2018 CYSTO, RETROGRADE, URETEROPYELOGRAPHY, W/PCNL (WRVU 2.37) performed by Crow Galvin Jr., MD at [facility] OR ? ? PRO PERCUTANEOUS NEPHROSTOLITHOTOMY/PYELOSTOLITHOTOMY [...] by Crow Galvin Jr., MD [facility] MAIN OR Family History Problem Relation [...] And ventral hernia presenting in transfer form [facility] with acute hypoxic respiratory failure and shock. [...] AM EDTProcedure(s): DH INSERT PULMONARY ARTERY CATHETER [place] Procedure Note Date: 01/05/19 Time: 0100 AM [...] fashion. A triple lumen continuous cardiac output [place] catheter wasbrought onto the field and each [...] events. Afterwards a right single lumen 9 [place] Cordis central line was placed. Throughout all [...] and patient was transferred. She arrived via [facility] on , reporting that she complained of severe SOB upon their arrival. Complaining of ongoing abdominal pain on arrival to [facility]. On my examination, General: ill-appearing, diaphoretic, eyes [...] of approximately 15% which was confirmed by document manager. Ultrasound also showed bilateral B-lines consistent with [...] to the MICU Ariane Johnson MD Resident 01/06/197 Associated attestation - Hossein Chahal MD - [...] Johnson, Dr. [facility] Iman Galicia RN - 01/04/2019 9:37 [...] Minutes, Occupational Therapy: 25(SCHM x 2) Pager: [phone] Mary Sesay OT Occupational Therapy Rehabilitation Department [...] ??? CHF (congestive heart failure) diag 2016 [facility] ??? Chronic lung disease sarcoidosis ??? [...] failure 'don't know if it's failure ??? long-term current use of opiate analgesic PCP ??? [...] performed by Crow Galvin Jr., MD at [facility] OR ? ? PRO CYSTO W URETEROSCOPY &/OR PYELOSCOPY, DX Right 09/26/2018 CYSTOURETEROSCOPY, DIAGNOSTIC (WRVU 5.75) performed by Crow Galvin Jr., MD at [facility] OR ? ? PRO CYSTO W URETEROSCOPY &/OR PYELOSCOPY, DX Left 11/07/2018 CYSTOURETEROSCOPY, DIAGNOSTIC (WRVU 5.75) performed by Crow Galvin Jr., MD at [facility] OR ??? PRO CYSTOSCOPY, INSERT URETERAL STENT Right 07/10/2018 CYSTO, STENT PLACEMENT (WRVU 2.82) performed by Viky Sears MD at [facility] OR ??? PRO CYSTOSCOPY, REMV CALCULUS, COMPLIC Right 09/26/2018 CYSTO, REMOVAL OF STENT, FOREIGN BODY, CALCULUS, COMPLICATED (WRVU 5.2) performed by Crow Galvin MD at [facility] OR ??? PRO CYSTOURETHROSCOPY, URETER CATHETER Right 07/10/2018 CYSTO, RETROGRADE, URETEROPYELOGRAPHY (WRVU 2.37) performed by Viky Sears MD at [facility] OR ??? PRO CYSTOURETHROSCOPY, URETER CATHETER Right 09/26/2018 CYSTO, RETROGRADE, URETEROPYELOGRAPHY, W/PCNL (WRVU 2.37) performed by Crow Galvin Jr., MD at [facility] OR ??? PRO EXPLORATORY OF ABDOMEN N/A 01/05/2019 @EXPLORATORY LAPAROTOMY, WITH/WITHOUT BIOPSY(S) (WRVU 12.54) performed by Ace Henry MD at [facility] OR ??? PRO EXPLORATORY OF ABDOMEN N/A 01/07/2019 @EXPLORATORY LAPAROTOMY, WITH/WITHOUT BIOPSY(S) (WRVU 12.54) performed by Ace Henry MD at [facility] OR ??? PRO FREEING BOWEL ADHESION, ENTEROLYSIS N/A 01/05/2019 @LYSIS OF ADHESIONS, ABD. (WRVU 18.46) performed by Ace Henry MD at [facility] OR ? ? PRO PERCUTANEOUS NEPHROSTOLITHOTOMY/PYELOSTOLITHOTOMY [place] ? ? PRO PLIN NEPHROSTOMY CATH PRQ NEW ACCESS RS&I Right [...] by Crow Galvin Jr., MD [facility] MAIN OR ??? PRO RESECT SMALL INTEST, SINGL RESEC/ANAS N/A 01/07/2019 @BOWEL RESECTION, SMALL INTESTINE SINGLE ANASTOMOSIS (WRVU 20.82) performed by Ace Henry MD at [facility] MAIN OR Social History: Home set-up: One floor apartment. Lives alone and drives. Has a sister, in [place], who is her biggestsupport. Bathroom Set-up: Tub/shower [...] as stated above. Time IN / OUT: 5459-5081 NAOMI LY, PT Pager: [phone] Physical Therapy Inpatient Rehabilitation Department Consult Note [...] (Interventions Implemented as Appropriate) 01/09/19 0628 01/13/19 5010 Plan of Care Review Progress progress toward [...] EVALUATION: Plan of Care - Barbara Lopez, BUS MONITOR - 01/13/2019 4:22 PM EDT Speech Therapy [...] Pt was seen today for a follow-up BUS MONITOR visit to determine if diet upgrade was [...] Speech Language Pathology: 8 Barbara Lopez MA, CCC-BUS MONITOR Pager: [phone] Speech-Language Pathology Inpatient Rehabilitation Medicine Plan of Care - Kurt Starkey RN - 01/13/2019 6:25 AM EDT Problem: Patient Care Overview Goal: Plan of Care Review Outcome: Ongoing (Interventions Implemented as Appropriate) 01/09/19 0628 01/12/19 5120 Plan of Care Review Progress progress toward [...] y.o. female admitted on 01/04/[address] Anrdia Pena III, MD for SBO and septic [...] alone and drives. Has a sister, in [place], who is her biggestsupport. Bathroom Set-up: Tub/shower [...] pt reports independence at home using LH internal medicine specialist& sock aide Bathing: not tested, anticipate max [...] and measurable assessment of functional outcome. Pager: [phone] Makenna Dominguez OT #[phone] Occupational Therapy Rehabilitation [...] ??? CHF (congestive heart failure) diag 2016 [facility] ??? Chronic lung disease sarcoidosis ??? [...] failure 'don't know if it's failure ??? 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 [...] EXAM [facility] N/A 09/26/2018 FLUOROSCOPY (WRVU 0.17) performed by Crow Galvin Jr., MD at [facility] MAIN OR ??? PRG FLUOROSCOPY EXAM UP [facility] 1 HR [facility]A 11/07/2018 FLUOROSCOPY (WRVU 0.17) performed by Crow Galvin Jr., MD at [facility] OR ??? PRG US GUIDE INTRAOP Right 09/26/2018 ULTRASONIC GUIDANCE, INTRAOP (WRVU 1.2) performed by Crow Galvin Jr., MD at [facility] MAIN OR ? ? PRO CYSTO W URETEROSCOPY &/OR PYELOSCOPY, DX Right 09/26/2018 CYSTOURETEROSCOPY, DIAGNOSTIC (WRVU 5.75) performed by Crow Galvin Jr., MD at [facility] OR ? ? PRO CYSTO W URETEROSCOPY &/OR PYELOSCOPY, DX Left 11/07/2018 CYSTOURETEROSCOPY, DIAGNOSTIC (WRVU 5.75) performed by Crow Galvin Jr., MD at [facility] OR ??? PRO CYSTOSCOPY, INSERT URETERAL STENT Right 07/10/2018 CYSTO, STENT PLACEMENT (WRVU 2.82) performed by Viky Sears MD at [facility] OR ??? PRO CYSTOSCOPY, REMV CALCULUS, COMPLIC Right 09/26/2018 CYSTO, REMOVAL OF STENT, FOREIGN BODY, CALCULUS, COMPLICATED (WRVU 5.2) performed by Crow Galvin MD at [facility] MAIN OR ??? PRO CYSTOURETHROSCOPY, URETER CATHETER Right 07/10/2018 CYSTO, RETROGRADE, URETEROPYELOGRAPHY (WRVU 2.37) performed by Viky Sears MD at [facility] OR ??? PRO CYSTOURETHROSCOPY, URETER CATHETER Right 09/26/2018 CYSTO, RETROGRADE, URETEROPYELOGRAPHY, W/PCNL (WRVU 2.37) performed by Crow Galvin Jr., MD at [facility] OR ??? PRO EXPLORATORY OF ABDOMEN N/A 01/05/2019 @EXPLORATORY LAPAROTOMY, WITH/WITHOUT BIOPSY(S) (WRVU 12.54) performed by Ace Henry MD at [facility] OR ??? PRO EXPLORATORY OF ABDOMEN [...] [place] ? ? PRO PLIN NEPHROSTOMY CATH PRQ NEW ACCESS RS&I Right [...] Crow Galvin Jr., MD [facility] OR ??? PRO RESECT SMALL INTEST, SINGL RESEC/ANAS N/A 01/07/2019 @BOWEL RESECTION, SMALL INTESTINE SINGLE ANASTOMOSIS (WRVU 20.82) performed by Ace Henry MD at [facility] OR Social History: Home set-up: One floor apartment. Lives alone and drives. Has a sister, in [place], who is her biggestsupport. Bathroom Set-up: Tub/shower [...] in this evaluation. Time IN / OUT: 5869-1029 Total Evaluation Minutes, Physical Therapy: 41(EV, high and TEF) JEANIE MOULTON, PT Pager: [phone] Physical Therapy Inpatient Rehabilitation Department Plan of Care - Tara Welch RN - 01/09/2019 7:01 PM EDT Problem: Patient Care Overview Goal: Plan of Care Review 01/09/19 7010 Coping/Psychosocial Plan Of Care Reviewed With patient [...] oral care Pt would benefit from skilled BUS MONITOR services to maximize swallow function and safety [...] any questions or concerns. Barbara Lopez MA, [facility]-BUS MONITOR Pager: [phone] Speech-Language Pathology Inpatient Rehabilitation Medicine Plan of [...] OR at 1530. Pending patient return to [facility]. ?? PLAN MOVING FORWARD: Plan to be [...] PM EDT Operative Note Patient Name: Blossom Pacheoc : 1960 MR#: [id number] Date of Operation: 01/07/2019. Preoperative Diagnosis: shock of unclear etiology, open abdomen Postoperative Diagnosis: same Procedure(s): @EXPLORATORY LAPAROTOMY, WITH/WITHOUT BIOPSY(S) [facility] 12[facility] @BOWEL RESECTION, SMALL INTESTINE SINGLE ANASTOMOSIS ([facility] 20.82): Surgeon(s): Surgeon(s) and Role: [...] OR at 1530. Pending patient return to [facility]. PLAN MOVING FORWARD: Plan to be determined [...] nurse, hourly rounding Surveillance [continuous indirect monitoring]: [facility] ICU, vent alarm Patient-specific fall prevention interventions [...] for Hospitalization: 01/06/2019 Accepted in transfer from [facility] for further management of septic shock with cardiac overlay (cardiomyopathy on ECHO) IP admit order 01/04/19 MD Hossein Chahal (dx: shock) Past Medical History: Diagnosis Date ??? Asthma ??? Bowel disease IBS ??? CHF (congestive heart failure) diag 2017 [facility] ??? Chronic lung disease sarcoidosis ??? [...] failure 'don't know if it's failure ??? 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 [...] not been completed sister Mona Pacheco (cell: [phone]) would be surrogate decision maker per [place] surrogate decision making law. Any patient receiving care at [facility] must abide by [place] law. The hierarchy for surrogate decision making [...] (i) The agent with financial power of workers compensation defense attorney or a conservator appointed in [...] Home Environment: apartment dwelling is listed in [place] but more information regarding the living [...] Prescription Coverage: to be assessed Preferred Pharmacy: [facility] in [place] Other: [facility] in [place] Primary Care Provider: Albert Zuleta MD [phone] Patient/Caregiver Goals of Treatment: return hoime Potential Needs for Transition of Care: Rehab/SNF: pending PT/OT recommendations Home Health: referral will be needed to [facility] should patient discharge with Wound Vac. Home Health Agency would be [facility] but additional discussion is needed [...] secondary insurance coverage but may qualify for [facility] which will provide extra services/resources. Plan: A member of the Care Management team will continue to monitor progress, follow for continuity of care and assist with transition of care planning. Notify [facility] Medicaid Specialist of potential applicant (done;email 01/06/2019 ) Mayela Arriaga RN Pager: [phone] Plan of Care - Jenna Jin RN [...] pressors and d/c a-line d/t poor waveform. [place] d/c per team, CI 2.2 and agreed [...] transferred from ED to ICU 37 for [place] Placement. Wedge pressure 11. Catheter at 52. [...] Patient Name: Blossom Pacheco : 1960 MR#: [id number] Date of Operation: 01/05/2019. Preoperative Diagnosis: shock [...] Operative Note Patient Name: Blossom Pacheco : [id number] MR#: [id number] Case Date: 01/05/2019 Surgeon: Surgeon(s) and Role: [...] she presented today to her local emergency ([facility]) room with the complaint of severe abdominal pain. CT scan there revealedpartial small bowel obstruction secondary to incarcerated anterior wall abdominal hernia.Her labs were remarkable as above. She received 1.5L of IVF and was transferred to [facility] ED. In the ED at [facility] she developed acute hypoxic respiratory distress thought [...] that her underlying abdominal pathology is the peg driver of her acute illness. She presented with [...] to contact with questions/concerns. Yuni Casillas, DO Product Development Coordinator Cardiology Attending Addendum I was the assigned attending front desk for this clinical encounter. 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 Hand Hygiene: The dam worker did perform hand hygiene prior to arterial [...] Neurology Ryann Barfield APRN [facility] [address] [place]ISA [place] [address] 03/23/2022 Appointment Radiology Hailey Mcclendon MD [facility] RICHARD Sanders [address] 03/23/2022 Laboratory Appointment Lab 03/23/2022 Office Visit Gastroenterology Hailey Mcclendon MD [facility] [address] [place] [address] 05/23/2022 Procedure visit Maxillofacial Surgery Corby Montes MD [facility] [place], [place] [address] Pending Results Name Type Priority Associated [...] the results section. POCT GLUCOSE Routine 01/07/2019 3:07 Results for [...] procedure are i n the results section. @LYSIS OF ADHESIONS, 01/05/2019 1:39 bowel ischemia ABD. (WRVU 18.46) AM EDT @EXPLORATORY 01/05/2019 1:39 bowel ischemia LAPAROTOMY, AM EDT WITH/WITHOUT BIOPSY(S) (WRVU 12.54) BLOOD CULTURE STAT 01/05/2019 1:30 Results for [...] section. TYPE AND SCREEN STAT 01/04/2019 9:26 ([facility]P/ROSA) PM EDT PEREZ TUBE HOLD STAT 01/04/2019 [...] - 199 [place] mg/dL [facility] Comment: Supplemental ranges: <140 mg/dL before meals <180 mg/dL all other times of the day Specimen Anatomical Collection Method Collection Time Receive d Time (Source) Location / / Volume Laterality Blood specimen 01/15/2019 11:09 9 (specimen) AM EDT 11:09 AM EDT Kelsey Eaton MD POINT OF CARE TEST ORDERABLE S Performing Organization Address City/State/ZIP [place] [address] (ABNORMAL) POCT Glucose (01/15/2019 7:26 AM EDT) athologist Signature POC Glucose 214 (H) 65 - 199 [place] mg/dL [facility] Comment: Supplemental ranges: <140 mg/dL before meals <180 mg/dL all other times of the day Specimen Anatomical Collection Method Collection Time Receive d Time (Source) Location / / Volume Laterality Blood specimen 01/15/2019 7:26 AM 019 7:26 (specimen) EDT AM EDT Kelsey Eaton MD POINT OF CARE TEST ORDERABLE S Performing Organization Address City/State/ZIP Code Phon e Number [address] POCT Glucose (01/15/2019 6:43 AM EDT) athologist Signature POC Glucose 194 65 - 199 [place] mg/dL [facility] Comment: Supplemental ranges: <140 mg/dL before meals <180 mg/dL all other times of the day Specimen Anatomical Collection Method Collection Time Receive d Time (Source) Location / / Volume Laterality Blood specimen 01/15/2019 6:43 AM 019 6:43 (specimen) EDT AM EDT Kelsey Eaton MD POINT OF CARE TEST ORDERABLE S Performing Organization Address City/State/Z[place] [address] (ABNORMAL) Differential, Automated (01/15/2019 5:04 AM EDT) [facility] gist Method Time Signature Neutrophils % 58.1 % [facility] Neutr Abs (ANC) 6.59 (H) 1.70 - [facility] 6.10 [facility] x10(3)/[facility] Lymphocytes % 29.9 % [facility] Lymphocytes Abs 3.4 (H) 0.9 - 3.2 [facility] x10(3)/[facility] LABORATORY Monocytes % 7.8 % [facility] Monocyte Abs 0.9 0.3 - 0.9 [facility] x10(3)/[facility] LABORATORY Eosinophils % 2.8 % [facility] Eosinophils Abs 0.3 0.0 - 0.4 [facility] x10(3)/[facility] LABORATORY Basophils % 0.3 % [facility] Basophils Abs 0.0 0.0 - 0.1 [facility] x10(3)/[facility] LABORATORY Immature Gran % 1.10 % [facility] Comment: Immature granulocytes(IG's)percentage an d absolute count will include metamyelocytes, myelocytes, and promyelo cytes. Blood smears from CBCs yielding IG's will be scanned manually for concor dance. If this scan disagrees with the automated IG or if promyelocytes are not ed, a manual differential will be performed. Irina Gran Abs 0.12 (H) 0.00 - 0.04 x10(3)/[facility] LABORATORY Specimen Anatomical Collection Method Collection Time Receive d Time (Source) Location / / Volume Laterality Blood specimen 01/15/2019 5:04 AM 019 5:50 (specimen) EDT AM EDT Resulting Agency Comment Spec In Lab Carlos Eduardo Tai MD HEMATOLOGY ORDERABLES Performing Organization Address City/State/Z[place] [address] (ABNORMAL) Hemogram (01/15/2019 5:04 AM EDT) [facility] gist Method Time Signature WBC 11.3 (H) 4.0 - 9.5 [facility] LABORATORY RBC 3.42 (L) 4.00 - [place] 5.21 [facility] x10(6)/[facility] LABORATORY Hemoglobin 10.0 (L) 11.7 - [place] 15.5 gm/dL [facility] Hematocrit 32.3 (L) 35.7 - [facility] 45.8 % [facility] MCV 94.4 82.6 - [facility] 94.4 [facility] LABORATORY MCH 29.2 27.1 - [place] 32.0 pg [facility] MCHC 31.0 (L) 31.7 - [facility] 35.0 gm/dL [facility] Platelets 261 145 - 357 [facility] x10(3)/[facility] LABORATORY RDWSD 45.9 37.0 - [facility] [place] 46.0 [facility] LABORATORY RDWCV 13.6 11.5 - [facility] 14.1 % [facility] MPV 10.9 7.6 - 12.9 [facility] LABORATORY nRBC % Auto 0.2 % [facility] nRBC Abs Auto 0.020 (H) 0.000 - [place] 0.000 [facility] x10(3)/[facility] LABORATORY Specimen Anatomical Collection Method Collection Time Receive d Time (Source) Location / / Volume Laterality Blood specimen 01/15/2019 5:04 AM 019 5:50 (specimen) EDT AM EDT Resulting Agency Comment Spec In Lab Carlos Eduardo Tai MD HEMATOLOGY ORDERABLES Performing Organization Address City/State/ZIP [place] [address] [facility] [address] Magnesium (01/15/2019 5:04 AM EDT) athologist Signature Magnesium 0.69 0.69 - 1.07 [facility] mmol/L [facility] Specimen Anatomical Collection Method Collection Time Receive d Time (Source) Location / / Volume Laterality Blood specimen 01/15/2019 5:04 AM 019 5:50 (specimen) EDT AM EDT Resulting Agency Comment Spec In Lab Kelsey Eaton MD CHEMISTRY ORDERABLES Performing Organization Address City/State/ZIP Code Phon e Number [address] (ABNORMAL) Basic Metabolic Panel (non-fasting) (01/15/2019 5:04 AM EDT) athologist Signature Glucose Lvl 175 65 - 199 [facility] mg/dL [facility] Comment: Diabetes: >=200 mg/dL plus symp toms BUN 3 (L) 8 - 18 mg/dL [facility] Creatinine 0.51 (L) 0.70 - 1.20 mg/dL [facility] Sodium 143 135 - 145 mmol/L [facility] Potassium 3.0 (Critical) 3.5 - 5.0 mmol/L [facility] Comment: Called by: [facility], Read back by: Kurt davis, Date/Time:01/15/19 06:31. Please note: ??Patients with WBC >100,00 0 may have falsely elevated Potassium levels. ??For accurate Potassium quantif ication in these patients send serum separator tube (gold top) for subsequent determinations. ??Contact the Clinical Chemistry Laboratory if there are any qu estions. Chloride 112 (H) 98 - 107 mmol/L [facility] CO2 20 (L) 22 - 31 mmol/L [facility] Anion Gap 11 5 - 15 mmol/L [facility] Calcium 9.4 8.5 - 10.5 mg/dL [facility] Estimated GFR 105 >=60 mL/min/1.73 m?? [facility] Comment: The eGFR was calculated using the CKD-EP I equation. As with all creatinine based estimates of kidney function, eGFR values calculated with the CKD-EPI equation are not accurate in patients wi th acute kidney failure, extremes of body mass or the acutely ill. http://Codeoscopic/[facility] [place] CITYnkf eGFR 122 >=60 mL/min/1.73 m?? [facility] Comment: The eGFR was calculated using the CKD-EP I equation. As with all creatinine based estimates of kidney function, eGFR values calculated with the CKD-EPI equation are not accurate in patients wi th acute kidney failure, extremes of body mass or the acutely ill. http://Codeoscopic/[facility] [place] CITYnkf Specimen Anatomical Collection Method Collection Time Receive d Time (Source) Location / / Volume Laterality Blood specimen 01/15/2019 5:04 AM 019 5:50 (specimen) EDT AM EDT Resulting Agency Comment Spec In Lab Kelsey Eaton MD CHEMISTRY ORDERABLES Performing Organization Address City/State/ZIP Code Phon e Number [address] (ABNORMAL) POCT Glucose (01/14/2019 8:10 PM EDT) athologist Signature POC Glucose 201 (H) 65 - 199 [facility] Comment: Supplemental ranges: <140 mg/dL before meals <180 mg/dL all other times of the day Specimen Anatomical Collection Method Collection Time Receive d Time (Source) Location / / Volume Laterality Blood specimen 01/14/2019 8:10 PM 019 8:10 (specimen) EDT PM EDT Kelsey Eaton MD POINT OF CARE TEST ORDERABLE S Performing Organization Address City/State/ZIP Code Phon e Number [address] POCT Glucose (01/14/2019 4:28 PM EDT) athologist Signature POC Glucose 186 65 - 199 [facility] Comment: Supplemental ranges: <140 mg/dL before meals <180 mg/dL all other times of the day Specimen Anatomical Collection Method Collection Time Receive d Time (Source) Location / / Volume Laterality Blood specimen 01/14/2019 4:28 PM 019 4:28 (specimen) EDT PM EDT Kelsey Eaton MD POINT OF CARE TEST ORDERABLE S Performing Organization Address City/State/ZIP Code Phon e Number [address] POCT Glucose (01/14/2019 12:01 PM EDT) P athologist Signature POC Glucose 199 65 - 199 [facility] Comment: Supplemental ranges: <140 mg/dL before meals <180 mg/dL all other times of the day Specimen Anatomical Collection Method Collection Time Receive d Time (Source) Location / / Volume Laterality Blood specimen 01/14/2019 12:01 9 (specimen) PM EDT 12:01 PM EDT Kelsey Eaton MD POINT OF CARE TEST ORDERABLE S Performing Organization Address City/State/ZIP Code Phon e Number [address] (ABNORMAL) POCT Glucose (01/14/2019 6:47 AM EDT) P athologist Signature POC Glucose 208 (H) 65 - 199 [facility] Comment: Supplemental ranges: <140 mg/dL before meals <180 mg/dL all other times of the day Specimen Anatomical Collection Method Collection Time Receive d Time (Source) Location / / Volume Laterality Blood specimen 01/14/2019 6:47 AM 019 6:47 (specimen) EDT AM EDT Kelsey Eaton MD POINT OF CARE TEST ORDERABLE S Performing Organization Address City/State/ZIP Code Phon e Number [address] (ABNORMAL) Differential, Automated (01/14/2019 5:47 AM EDT) Patholo gist Method Time Signature Neutrophils % 56.9 % [facility] Neutr Abs (ANC) 6.15 (H) 1.70 - [facility] 6.10 [facility] x10(3[facility]ORY Lymphocytes % 31.1 % [facility] Lymphocytes Abs 3.4 (H) 0.9 - 3.2 [facility] x10(3)/[facility] LABORATORY Monocytes % 7.6 % [facility] Monocyte Abs 0.8 0.3 - 0.9 [facility] x10(3)/[facility] LABORATORY Eosinophils % 2.9 % [facility] Eosinophils Abs 0.3 0.0 - 0.4 [facility] x10(3)/[facility] LABORATORY Basophils % 0.3 % [facility] Basophils Abs 0.0 0.0 - 0.1 [facility] x10(3)/[facility] LABORATORY Immature Gran % 1.20 % [facility] Comment: Immature granulocytes(IG's)percentage an d absolute count will include metamyelocytes, myelocytes, and promyelo cytes. Blood smears from CBCs yielding IG's will be scanned manually for concor dance. If this scan disagrees with the automated IG or if promyelocytes are not ed, a manual differential will be performed. Irina Gran Abs 0.13 (H) 0.00 - 0.04 x10(3)/[facility] LABORATORY Specimen Anatomical Collection Method Collection Time Receive d Time (Source) Location / / Volume Laterality Blood specimen 01/14/2019 5:47 AM 019 6:18 (specimen) EDT AM EDT Resulting Agency Comment Spec In Lab Carlos Eduardo Tai MD HEMATOLOGY ORDERABLES Performing Organization Address City/State/ZIP [place] [address] (ABNORMAL) Hemogram (01/14/2019 5:47 AM EDT) Analysis Performed At Patho logist Time Signature WBC 10.8 (H) 4.0 - 9.5 [facility] x10(3)/[facility] LABORATORY RBC 3.20 (L) 4.00 - [facility] 5.21 [facility] x10(6)/[facility] LABORATORY Hemoglobin 9.5 (L) 11.7 - [facility] [place] 15.5 gm/dL [facility] Hematocrit 30.4 (L) 35.7 - [facility] [place] 45.8 % [facility] MCV 95.0 (H) 82.6 - [facility] 94.4 [facility] LABORATORY MCH 29.7 27.1 - [facility] 32.0 pg [facility] MCHC 31.3 (L) 31.7 - [facility] [place] 35.0 gm/dL [facility] Platelets 274 145 - 357 [facility] x10(3)/[facility] LABORATORY RDWSD 45.8 37.0 - [facility] 46.0 [facility] LABORATORY RDWCV 13.3 11.5 - [facility] 14.1 % [facility] MPV 10.2 7.6 - 12.9 [facility] LABORATORY nRBC % Auto 0.0 % [facility] nRBC Abs Auto 0.000 0.000 - [facility] 0.000 [facility] x10(3)/[facility] LABORATORY Specimen Anatomical Collection Method Collection Time Receive d Time (Source) Location / / Volume Laterality Blood specimen 01/14/2019 5:47 AM 019 6:18 (specimen) EDT AM EDT Resulting Agency Comment Spec In Lab Carlos Eduardo Tai MD HEMATOLOGY ORDERABLES Performing Organization Address City/[facility]/ZIP Code Phon e Number [address] Magnesium (01/14/2019 5:47 AM EDT) P athologist Signature Magnesium 0.71 0.69 - 1.07 [facility] mmol/L [facility] Specimen Anatomical Collection Method Collection Time Receive d Time (Source) Location / / Volume Laterality Blood specimen 01/14/2019 5:47 AM 019 6:18 (specimen) EDT AM EDT Resulting Agency Comment Spec In Lab Kelsey Eaton MD CHEMISTRY ORDERABLES Performing Organization Address City/State/ZIP Code Phon e Number [facility] [place] [address] (ABNORMAL) Basic Metabolic Panel (non-fasting) (01/14/2019 5:47 AM EDT) P athologist Signature Glucose Lvl 180 65 - 199 [facility] mg/dL [facility] Comment: Diabetes: >=200 mg/dL plus symp toms BUN 5 (L) 8 - 18 mg/dL [facility] Creatinine 0.52 (L) 0.70 - 1.20 mg/dL [facility] Sodium 141 135 - 145 mmol/L [facility] Potassium 2.8 (Critical) 3.5 - 5.0 mmol/L [facility] Comment: Results rechecked Called by: alecia, Read back by: kurt grey, Date/Time:01/14/19 07:13. Please note: ??Patients with WBC >100,00 0 may have falsely elevated Potassium levels. ??For accurate Potassium quantif ication in these patients send serum separator tube (gold top) for subsequent determinations. ??Contact the Clinical Chemistry Laboratory if there are any qu estions. Chloride 111 (H) 98 - 107 mmol/L [facility] CO2 19 (L) 22 - 31 mmol/L [facility] Anion Gap 11 5 - 15 mmol/L [facility] Calcium 9.2 8.5 - 10.5 mg/dL [facility] Estimated GFR 105 >=60 mL/min/1.73 m?? [facility] Comment: The eGFR was calculated using the CKD-EP I equation. As with all creatinine based estimates of kidney function, eGFR values calculated with the CKD-EPI equation are not accurate in patients wi th acute kidney failure, extremes of body mass or the acutely ill. [email or web address] eGFR 121 >=60 mL/min/1.73 m?? [facility] Comment: The eGFR was calculated using the CKD-EP I equation. As with all creatinine based estimates of kidney function, eGFR values calculated with the CKD-EPI equation are not accurate in patients wi th acute kidney failure, extremes of body mass or the acutely ill. [email or web address] Specimen Anatomical Collection Method Collection Time Receive d Time (Source) Location / / Volume Laterality Blood specimen 01/14/2019 5:47 AM 019 6:18 (specimen) EDT AM EDT Resulting Agency Comment Spec In Lab Kelsey Eaton MD CHEMISTRY ORDERABLES Performing Organization Address City/State/ZIP Code Phon e Number [address] POCT Glucose (01/13/2019 7:45 PM EDT) P athologist Signature POC Glucose 144 65 - 199 [facility] Comment: Supplemental ranges: <140 mg/dL before meals <180 mg/dL all other times of the day Specimen Anatomical Collection Method Collection Time Receive d Time (Source) Location / / Volume Laterality Blood specimen 01/13/2019 7:45 PM 019 7:45 (specimen) EDT PM EDT Kelsey Eaton MD POINT OF CARE TEST ORDERABLE S Performing Organization Address City/[facility]/ZIP [place] [address] (ABNORMAL) POCT Glucose (01/13/2019 4:30 PM EDT) P athologist Signature POC Glucose 205 (H) 65 - 199 [facility] mg/dL [facility] Comment: Supplemental ranges: <140 mg/dL before meals <180 mg/dL all other times of the day Specimen Anatomical Collection Method Collection Time Receive d Time (Source) Location / / Volume Laterality Blood specimen 01/13/2019 4:30 PM 019 4:30 (specimen) EDT PM EDT Kelsey Eaton MD POINT OF CARE TEST ORDERABLE S Performing Organization Address City/[facility]/ZIP [place] [address] (ABNORMAL) POCT Glucose (01/13/2019 2:21 PM EDT) P athologist Signature POC Glucose 201 (H) 65 - 199 [facility]/dL [facility] Comment: Supplemental ranges: <140 mg/dL before meals <180 mg/dL all other times of the day Specimen Anatomical Collection Method Collection Time Receive d Time (Source) Location / / Volume Laterality Blood specimen 01/13/2019 2:21 PM 019 2:21 (specimen) EDT PM EDT Kelsey Eaton MD POINT OF CARE TEST ORDERABLE S Performing Organization Address City/State/ZIP [place] [address] (ABNORMAL) POCT Glucose (01/13/2019 11:07 AM EDT) P athologist Signature POC Glucose 228 (H) 65 - 199 [facility]dL [facility] Comment: Supplemental ranges: <140 mg/dL before meals <180 mg/dL all other times of the day Specimen Anatomical Collection Method Collection Time Receive d Time (Source) Location / / Volume Laterality Blood specimen 01/13/2019 11:07 9 (specimen) AM EDT 11:07 AM EDT Kelsey Eaton MD POINT OF CARE TEST ORDERABLE S Performing Organization Address City/[facility]/ZIP [place] [address] (ABNORMAL) Phosphorus (01/13/2019 8:26 AM EDT) athologist Signature Phosphorus 2.1 (L) 2.5 - 4.5 [facility] mg/dL [facility] Specimen Anatomical Collection Method Collection Time Receive d Time (Source) Location / / Volume Laterality Blood specimen Venous Draw / 01/13/2019 8:26 AM 2018 8:56 (specimen) Unknown EDT AM EDT Resulting Agency Comment Spec In Lab Carlos Eduardo Tai MD CHEMISTRY ORDERABLES Performing Organization Address City/State/ZIP [place] [address] (ABNORMAL) Basic Metabolic Panel (non-fasting) (01/13/2019 8:26 AM EDT) P athologist Signature Glucose Lvl 228 (H) 65 - 199 [facility] mg/dL [facility] Comment: Diabetes: >=200 mg/dL plus symp toms BUN 8 8 - 18 mg/dL [facility] Creatinine 0.51 (L) 0.70 - 1.20 mg/dL [facility] Sodium 143 135 - 145 mmol/L [facility] Potassium 3.2 (L) 3.5 - 5.0 mmol/L [facility] Comment: Please note: ??Patients with WBC >100,00 0 may have falsely elevated Potassium levels. ??For accurate Potassium quantif ication in these patients send serum separator tube (gold top) for subsequent determinations. ??Contact the Clinical Chemistry Laboratory if there are any qu estions. Chloride 113 (H) 98 - 107 mmol/L [facility] CO2 19 (L) 22 - 31 mmol/L [facility] Anion Gap 11 5 - 15 mmol/L [facility] Calcium 9.8 8.5 - 10.5 mg/dL [facility] Estimated GFR 105 >=60 mL/min/1.73 m?? [facility] Comment: The eGFR was calculated using the CKD-EP I equation. As with all creatinine based estimates of kidney function, eGFR values calculated with the CKD-EPI equation are not accurate in patients wi th acute kidney failure, extremes of body mass or the acutely ill. http://Codeoscopic/[facility] [place] CITYnk[place] eGFR 122 >=60 mL/min/1.73 m?? [facility] Comment: The eGFR was calculated using the CKD-EP I equation. As with all creatinine based estimates of kidney function, eGFR values calculated with the CKD-EPI equation are not accurate in patients wi th acute kidney failure, extremes of body mass or the acutely ill. http://Codeoscopic/[facility] [place] CITYnkf Specimen Anatomical Collection Method Collection Time Receive d Time (Source) Location / / Volume Laterality Blood specimen 01/13/2019 8:26 AM 019 8:50 (specimen) EDT AM EDT Resulting Agency Comment Spec In Lab Kelsey Eaton MD CHEMISTRY ORDERABLES Performing Organization Address City/State/ZIP Code Phon e Number [address] (ABNORMAL) Magnesium (01/13/2019 8:26 AM EDT) P athologist Signature Magnesium 0.64 (L) 0.69 - 1.07 [facility] mmol/L [facility] Specimen Anatomical Collection Method Collection Time Receive d Time (Source) Location / / Volume Laterality Blood specimen 01/13/2019 8:26 AM 019 8:50 (specimen) EDT AM EDT Resulting Agency Comment Spec In Lab Andria Pena III, MD CHEMISTRY ORDERABLES Performing Organization Address City/[facility]/ZIP Code Phon e Number [address] POCT Glucose (01/13/2019 6:50 AM EDT) P athologist Signature POC Glucose 198 65 - 199 [facility] Comment: Supplemental ranges: <140 mg/dL before meals <180 mg/dL all other times of the day Specimen Anatomical Collection Method Collection Time Receive d Time (Source) Location / / Volume Laterality Blood specimen 01/13/2019 6:50 AM 019 6:50 (specimen) EDT AM EDT Kelsey Eaton MD POINT OF CARE TEST ORDERABLE S Performing Organization Address City/[facility]/ZIP [place] [address] (ABNORMAL) Hemogram (01/13/2019 6:46 AM EDT) Analysis Performed At Patho logist Time Signature WBC 11.3 (H) 4.0 - 9.5 [facility] x10(3)/[facility] LABORATORY RBC 3.10 (L) 4.00 - [facility] 5.21 [facility] x10(6)/[facility] LABORATORY Hemoglobin 9.3 (L) 11.7 - [facility] 15.5 gm/dL [facility] Hematocrit 29.2 (L) 35.7 - [facility] 45.8 % [facility] MCV 94.2 82.6 - [facility] 94.4 [facility] LABORATORY MCH 30.0 27.1 - [facility] 32.0 pg [facility] MCHC 31.8 31.7 - [facility] 35.0 gm/dL [facility] Platelets 275 145 - 357 [facility] x10(3)/[facility] LABORATORY RDWSD 45.2 37.0 - [facility] 46.0 [facility] LABORATORY RDWCV 13.2 11.5 - [facility] 14.1 % [facility] MPV 10.7 7.6 - 12.9 [facility] LABORATORY nRBC % Auto 0.0 % [facility] nRBC Abs Auto 0.000 0.000 - [facility] 0.000 [facility] x10(3)/[facility] LABORATORY Specimen Anatomical Collection Method Collection Time Receive d Time (Source) Location / / Volume Laterality Blood specimen Venous Draw / 01/13/2019 6:46 AM 2018 8:16 (specimen) Unknown EDT AM EDT Resulting Agency Comment Spec In Lab Carlos Eduardo Tai MD HEMATOLOGY ORDERABLES Performing Organization Address City/State/ZIP Code Phon e Number [address] Green Tube HOLD (01/13/2019 6:46 AM EDT) P athologist Signature Green Hold Sample in [facility]. [facility] Specimen Anatomical Collection Method Collection Time Receive d Time (Source) Location / / Volume Laterality Blood specimen Venous Draw / 01/13/2019 6:46 AM 2018 6:57 (specimen) Unknown EDT AM EDT Kelsey Eaton MD CHEMISTRY ORDERABLES Performing Organization Address City/State/ZIP [place] [address] (ABNORMAL) Hemoglobin A1c (01/13/2019 6:46 AM EDT) Analysis Performed At Patho logist Time Signature Hemoglobin A1C 7.9 (H) 4.3 - 5.6 [facility] Comment: Reference Range: 4.3 - [...] Mellitus, Diabetes Care 2013; 36: Suppl. 1, S67-49 Est Avg Gluc 180 mg/dL [facility] Comment: eAG equivalents for HbA1c percentages: HbA1c(%) ?eAG(mg/dL) 6.0 ?126 6.5 ?140 7.0 ?154 7.5 ?169 8.0 ?183 8.5 ?197 9.0 ?212 9.5 ?226 10.0 ? 240 Limitations: The eAG calculation has not been validated on women, individuals below 18 years old and above 70 years old, and individuals with hemoglobinopathies. Additional resources are available on [facility] ADA website. Godfrey VALENCIA, Yumiko J, Herminia R, et al. ??Tr anslating the A1C assay into estimated average glucose values. ??Diabetes Care 2008:31(8):0684-6919. Specimen Anatomical Collection Method Collection Time Receive d Time (Source) Location / / Volume Laterality Blood specimen 01/13/2019 6:46 AM 019 6:56 (specimen) EDT AM EDT Resulting Agency Comment Spec In Lab Kelsey Eaton MD CHEMISTRY ORDERABLES Performing Organization Address City/State/ZIP [place] [address] POCT Glucose (01/13/2019 4:57 AM EDT) athologist Signature POC Glucose 194 65 - 199 [facility] [place] mg/dL [facility] Comment: Supplemental ranges: <140 mg/dL before meals <180 mg/dL all other times of the day Specimen Anatomical Collection Method Collection Time Receive d Time (Source) Location / / Volume Laterality Blood specimen 01/13/2019 4:57 AM 019 4:57 (specimen) EDT AM EDT Kelsey Eaton MD POINT OF CARE TEST ORDERABLE S Performing Organization Address City/State/ZIP Code Phon e Number [address] (ABNORMAL) POCT Glucose (01/13/2019 2:04 AM EDT) athologist Signature POC Glucose 205 (H) 65 - 199 [facility] [place] mg/dL [facility] Comment: Supplemental ranges: <140 mg/dL before meals <180 mg/dL all other times of the day Specimen Anatomical Collection Method Collection Time Receive d Time (Source) Location / / Volume Laterality Blood specimen 01/13/2019 2:04 AM 019 2:04 (specimen) EDT AM EDT Kelsey Eaton MD POINT OF CARE TEST ORDERABLE S Performing Organization Address City/State/ZIP [place] [address] POCT Glucose (01/12/2019 8:49 PM EDT) athologist Signature POC Glucose 190 65 - 199 [facility] [place] mg/dL [facility] Comment: Supplemental ranges: <140 mg/dL before meals <180 mg/dL all other times of the day Specimen Anatomical Collection Method Collection Time Receive d Time (Source) Location / / Volume Laterality Blood specimen 01/12/2019 8:49 PM 019 8:49 (specimen) EDT PM EDT Kelsey Eaton MD POINT OF CARE TEST ORDERABLE S Performing Organization Address City/State/ZIP [place] [address] (ABNORMAL) Basic Metabolic Panel (non-fasting) (01/12/2019 4:15 PM EDT) P athologist Signature Glucose Lvl 241 (H) 65 - 199 [facility] mg/dL [facility] Comment: Diabetes: >=200 mg/dL plus symp toms BUN 9 8 - 18 mg/dL [facility] Creatinine 0.53 (L) 0.70 - 1.20 mg/dL [facility] Sodium 143 135 - 145 mmol/L [facility] Potassium Not Perf 3.5 - 5.0 [facility] Comment: Called by: SALOME, Read back [...] Chloride 114 (H) 98 - 107 mmol/L [facility] CO2 17 (L) 22 - 31 mmol/L [facility] Anion Gap 12 5 - 15 mmol/L [facility] Calcium 9.8 8.5 - 10.5 mg/dL [facility] Estimated GFR 104 >=60 mL/min/1.73 m?? [facility] Comment: The eGFR was calculated using the CKD-EP I equation. As with all creatinine based estimates of kidney function, eGFR values calculated with the CKD-EPI equation are not accurate in patients wi th acute kidney failure, extremes of body mass or the acutely ill. [email or web address] eGFR 120 >=60 mL/min/1.73 m?? [facility] Comment: The eGFR was calculated using the CKD-EP I equation. As with all creatinine based estimates of kidney function, eGFR values calculated with the CKD-EPI equation are not accurate in patients wi th acute kidney failure, extremes of body mass or the acutely ill. [email or web address] Specimen Anatomical Collection Method Collection Time Receive d Time (Source) Location / / Volume Laterality Blood specimen 01/12/2019 4:15 PM 019 4:28 (specimen) EDT PM EDT Resulting Agency Comment Spec In Lab Andria Pena III, MD CHEMISTRY ORDERABLES Performing Organization Address City/State/ZIP [place] [address] (ABNORMAL) POCT Glucose (01/12/2019 4:14 PM EDT) P athologist Signature POC Glucose 231 (H) 65 - 199 [facility]dL [facility] Comment: Supplemental ranges: <140 mg/dL before meals <180 mg/dL all other times of the day Specimen Anatomical Collection Method Collection Time Receive d Time (Source) Location / / Volume Laterality Blood specimen 01/12/2019 4:14 PM 019 4:14 (specimen) EDT PM EDT Kelsey Eaton MD POINT OF CARE TEST ORDERABLE S Performing Organization Address City/[facility]/ZIP [place] [address] POCT Glucose (01/12/2019 12:38 PM EDT) athologist Signature POC Glucose 175 65 - 199 [facility] Comment: Supplemental ranges: <140 mg/dL before meals <180 mg/dL all other times of the day Specimen Anatomical Collection Method Collection Time Receive d Time (Source) Location / / Volume Laterality Blood specimen 01/12/2019 12:38 9 (specimen) PM EDT 12:38 PM EDT Kelsey Eaton MD POINT OF CARE TEST ORDERABLE S Performing Organization Address City/[facility]/ZIP [place] [address] (ABNORMAL) Hemogram (01/12/2019 11:45 AM EDT) Analysis Performed At Patho logist Time Signature WBC 10.4 (H) 4.0 - 9.5 [facility] x10(3)/[facility] LABORATORY RBC 3.26 (L) 4.00 - [place] 5.21 [facility] x10(6)/[facility] LABORATORY Hemoglobin 9.7 (L) 11.7 - [facility] 15.5 gm/dL [facility] Hematocrit 31.2 (L) 35.7 - [facility] 45[facility]8 % [facility] MCV 95.7 (H) 82.6 - [facility] 94.4 [facility] LABORATORY MCH 29.8 27.1 - [facility] 32.0 pg [facility] MCHC 31.1 (L) 31.7 - [facility] 35.0 gm/dL [facility] Platelets 241 145 - 357 [facility] x10(3)/[facility] LABORATORY RDWSD 46.6 (H) 37.0 - [facility] 46.0 [facility] LABORATORY RDWCV 13.2 11.5 - [facility] 14.1 % [facility] MPV 10.1 7.6 - 12.9 [facility] LABORATORY nRBC % Auto 0.0 % [facility]ORATORY nRBC Abs Auto 0.000 0.000 - [facility] 0.000 [facility] x10(3)/[facility] LABORATORY Specimen Anatomical Collection Method Collection Time Receive d Time (Source) Location / / Volume Laterality Blood specimen 01/12/2019 11:45 9 (specimen) AM EDT 12:02 PM EDT Resulting Agency Comment Spec In Lab Kelsey Eaton MD HEMATOLOGY ORDERABLES Performing Organization Address City/State/ZIP [place] [address] (ABNORMAL) POCT Glucose (01/12/2019 11:44 AM EDT) P athologist Signature POC Glucose 201 (H) 65 - 199 [facility]dL [facility] Comment: Supplemental ranges: <140 mg/dL before meals <180 mg/dL all other times of the day Specimen Anatomical Collection Method Collection Time Receive d Time (Source) Location / / Volume Laterality Blood specimen 01/12/2019 11:44 9 (specimen) AM EDT 11:44 AM EDT Kelsey Eaton MD POINT OF CARE TEST ORDERABLE S Performing Organization Address City/[facility]/ZIP [place] [address] (ABNORMAL) Hepatic Function Panel (01/12/2019 11:31 AM EDT) P athologist Signature Total Protein 6.3 6.1 - 8.0 [facility] gm/dL [facility] Albumin 3.1 (L) 3.2 - 5.2 [facility] gm/dL [facility] AST 14 0 - 30 [facility] unit/L [facility] ALT 10 0 - 30 [facility] unit/L [facility] Alk Phos 79 40 - 104 [facility] unit/L [facility] Total 0.3 0.2 - 1.3 [facility] Bilirubin mg/dL [facility] Bili, Direct 0.1 0.0 - 0.3 [facility] mg/dL [facility] Specimen Anatomical Collection Method Collection Time Receive d Time (Source) Location / / Volume Laterality Blood specimen 01/12/2019 11:31 9 (specimen) AM EDT 11:50 AM EDT Resulting Agency Comment Spec In Lab Kelsey Eaton MD CHEMISTRY ORDERABLES Performing Organization Address City/[facility]/ZIP [place] [address] (ABNORMAL) Basic Metabolic Panel (non-fasting) (01/12/2019 11:31 AM EDT) P athologist Signature Glucose Lvl 212 (H) 65 - 199 [facility] mg/dL [facility] Comment: Diabetes: >=200 mg/dL plus symp toms BUN 10 8 - 18 mg/dL [facility] Creatinine 0.53 (L) 0.70 - 1.20 mg/dL [facility] Sodium 144 135 - 145 mmol/L [facility] Potassium 3.6 3.5 - 5.0 mmol/L [facility] Comment: Please note: ??Patients with WBC >100,00 0 may have falsely elevated Potassium levels. ??For accurate Potassium quantif ication in these patients send serum separator tube (gold top) for subsequent determinations. ??Contact the Clinical Chemistry Laboratory if there are any qu estions. Chloride 115 (H) 98 - 107 mmol/L [facility] CO2 18 (L) 22 - 31 mmol/L [facility] Anion Gap 11 5 - 15 mmol/L [facility] Calcium 9.7 8.5 - 10.5 mg/dL [facility] Estimated GFR 104 >=60 mL/min/1.73 m?? [facility] Comment: The eGFR was calculated using the CKD-EP I equation. As with all creatinine based estimates of kidney function, eGFR values calculated with the CKD-EPI equation are not accurate in patients wi th acute kidney failure, extremes of body mass or the acutely ill. http://[employer]/[facility] [place] CITYnkf eGFR 120 >=60 mL/min/1.73 m?? [facility] Comment: The eGFR was calculated using the CKD-EP I equation. As with all creatinine based estimates of kidney function, eGFR values calculated with the CKD-EPI equation are not accurate in patients wi th acute kidney failure, extremes of body mass or the acutely ill. http://[employer]/[facility] [place] CITYnkf Specimen Anatomical Collection Method Collection Time Receive d Time (Source) Location / / Volume Laterality Blood specimen 01/12/2019 11:31 9 (specimen) AM EDT 11:50 AM EDT Resulting Agency Comment Spec In Lab Andria Pena III, MD CHEMISTRY ORDERABLES Performing Organization Address City/State/ZIP [place] [address] (ABNORMAL) Phosphorus (01/12/2019 11:31 AM EDT) P athologist Signature Phosphorus 1.9 (L) 2.5 - 4.5 [facility] Specimen Anatomical Collection Method Collection Time Receive d Time (Source) Location / / Volume Laterality Blood specimen 01/12/2019 11:31 9 (specimen) AM EDT 11:50 AM EDT Resulting Agency Comment Spec In Lab Kelsey Eaton MD CHEMISTRY ORDERABLES Performing Organization Address City/State/ZIP [place] [address] (ABNORMAL) POCT Glucose (01/12/2019 10:37 AM EDT) P athologist Signature POC Glucose 220 (H) 65 - 199 [place] mg/dL [facility] Comment: Supplemental ranges: <140 mg/dL before meals <180 mg/dL all other times of the day Specimen Anatomical Collection Method Collection Time Receive d Time (Source) Location / / Volume Laterality Blood specimen 01/12/2019 10:37 9 (specimen) AM EDT 10:37 AM EDT Kelsey Eaton MD POINT OF CARE TEST ORDERABLE S Performing Organization Address City/State/ZIP Code Phon e Number [address] POCT Glucose (01/12/2019 9:37 AM EDT) P athologist Signature POC Glucose 183 65 - 199 [place] mg/dL [facility] Comment: Supplemental ranges: <140 mg/dL before meals <180 mg/dL all other times of the day Specimen Anatomical Collection Method Collection Time Receive d Time (Source) Location / / Volume Laterality Blood specimen 01/12/2019 9:37 AM 019 9:37 (specimen) EDT AM EDT Kelsey Eaton MD POINT OF CARE TEST ORDERABLE S Performing Organization Address City/State/ZIP Code Phon e Number [address] POCT Glucose (01/12/2019 8:36 AM EDT) P athologist Signature POC Glucose 177 65 - 199 [place] mg/dL [facility] Comment: Supplemental ranges: <140 mg/dL before meals <180 mg/dL all other times of the day Specimen Anatomical Collection Method Collection Time Receive d Time (Source) Location / / Volume Laterality Blood specimen 01/12/2019 8:36 AM 019 8:36 (specimen) EDT AM EDT Kelsey Eaton MD POINT OF CARE TEST ORDERABLE S Performing Organization Address City/State/ZIP Code Phon e Number [address] POCT Glucose (01/12/2019 7:33 AM EDT) athologist Signature POC Glucose 179 65 - 199 [place] mg/dL [facility] Comment: Supplemental ranges: <140 mg/dL before meals <180 mg/dL all other times of the day Specimen Anatomical Collection Method Collection Time Receive d Time (Source) Location / / Volume Laterality Blood specimen 01/12/2019 7:33 AM 019 7:33 (specimen) EDT AM EDT Andria Pena III, MD POINT OF CARE TEST ORDER ELINA Performing Organization Address City/State/ZIP [place] [address] POCT Glucose (01/12/2019 6:33 AM EDT) athologist Signature POC Glucose 147 65 - 199 [place] mg/dL [facility] Comment: Supplemental ranges: <140 mg/dL before meals <180 mg/dL all other times of the day Specimen Anatomical Collection Method Collection Time Receive d Time (Source) Location / / Volume Laterality Blood specimen 01/12/2019 6:33 AM 019 6:33 (specimen) EDT AM EDT Andria Pena III, MD POINT OF CARE TEST ORDER ELINA Performing Organization Address City/State/ZIP Code Phon e Number [address] POCT Glucose (01/12/2019 6:04 AM EDT) athologist Signature POC Glucose 124 65 - 199 [place] mg/dL [facility] Comment: Supplemental ranges: <140 mg/dL before meals <180 mg/dL all other times of the day Specimen Anatomical Collection Method Collection Time Receive d Time (Source) Location / / Volume Laterality Blood specimen 01/12/2019 6:04 AM 019 6:04 (specimen) EDT AM EDT Andria Pena III, MD POINT OF CARE TEST ORDER ELINA Performing Organization Address City/State/ZIP [place] [address] POCT Glucose (01/12/2019 5:10 AM EDT) athologist Signature POC Glucose 137 65 - 199 [place] mg/dL [facility] Comment: Supplemental ranges: <140 mg/dL before meals <180 mg/dL all other times of the day Specimen Anatomical Collection Method Collection Time Receive d Time (Source) Location / / Volume Laterality Blood specimen 01/12/2019 5:10 AM 019 5:10 (specimen) EDT AM EDT Andria Pena III, MD POINT OF CARE TEST ORDER ELINA Performing Organization Address City/State/ZIP [place] [address] POCT Glucose (01/12/2019 4:14 AM EDT) athologist Signature POC Glucose 141 65 - 199 [place] mg/dL [facility] Comment: Supplemental ranges: <140 mg/dL before meals <180 mg/dL all other times of the day Specimen Anatomical Collection Method Collection Time Receive d Time (Source) Location / / Volume Laterality Blood specimen 01/12/2019 4:14 AM 019 4:14 (specimen) EDT AM EDT Andria Pena III, MD POINT OF CARE TEST ORDER ELINA Performing Organization Address City/State/ZIP Code Phon e Number [address] POCT Glucose (01/12/2019 3:20 AM EDT) athologist Signature POC Glucose 145 65 - 199 [place] mg/dL [facility] Comment: Supplemental ranges: <140 mg/dL before meals <180 mg/dL all other times of the day Specimen Anatomical Collection Method Collection Time Receive d Time (Source) Location / / Volume Laterality Blood specimen 01/12/2019 3:20 AM 019 3:20 (specimen) EDT AM EDT Andria Pena III, MD POINT OF CARE TEST ORDER ELINA Performing Organization Address City/State/ZIP [place] [address] POCT Glucose (01/12/2019 2:00 AM EDT) athologist Signature POC Glucose 143 65 - 199 [place] mg/dL [facility] Comment: Supplemental ranges: <140 mg/dL before meals <180 mg/dL all other times of the day Specimen Anatomical Collection Method Collection Time Receive d Time (Source) Location / / Volume Laterality Blood specimen 01/12/2019 2:00 AM 019 2:00 (specimen) EDT AM EDT Andria Pena III, MD POINT OF CARE TEST ORDER ELINA Performing Organization Address City/State/ZIP Code Phon e Number [address] POCT Glucose (01/12/2019 12:58 AM EDT) athologist Signature POC Glucose 148 65 - 199 [place] mg/dL [facility] Comment: Supplemental ranges: <140 mg/dL before meals <180 mg/dL all other times of the day Specimen Anatomical Collection Method Collection Time Receive d Time (Source) Location / / Volume Laterality Blood specimen 01/12/2019 12:58 9 (specimen) AM EDT 12:58 AM EDT Andria Pena III, MD POINT OF CARE TEST ORDER ELINA Performing Organization Address City/State/ZIP Code Phon e Number [address] POCT Glucose (01/11/2019 11:58 PM EDT) athologist Signature POC Glucose 142 65 - 199 [place] mg/dL [facility] Comment: Supplemental ranges: <140 mg/dL before meals <180 mg/dL all other times of the day Specimen Anatomical Collection Method Collection Time Receive d Time (Source) Location / / Volume Laterality Blood specimen 01/11/2019 11:58 9 (specimen) PM EDT 11:58 PM EDT Kelsey Eaton MD POINT OF CARE TEST ORDERABLE S Performing Organization Address City/State/ZIP Code Phon e Number [address] POCT Glucose (01/11/2019 10:44 PM EDT) athologist Signature POC Glucose 131 65 - 199 [place] mg/dL [facility] Comment: Supplemental ranges: <140 mg/dL before meals <180 mg/dL all other times of the day Specimen Anatomical Collection Method Collection Time Receive d Time (Source) Location / / Volume Laterality Blood specimen 01/11/2019 10:44 9 (specimen) PM EDT 10:44 PM EDT Kelsey Eaton MD POINT OF CARE TEST ORDERABLE S Performing Organization Address City/State/ZIP Code Phon e Number [address] POCT Glucose (01/11/2019 10:07 PM EDT) athologist Signature POC Glucose 126 65 - 199 [place] mg/dL [facility] Comment: Supplemental ranges: <140 mg/dL before meals <180 mg/dL all other times of the day Specimen Anatomical Collection Method Collection Time Receive d Time (Source) Location / / Volume Laterality Blood specimen 01/11/2019 10:07 9 (specimen) PM EDT 10:07 PM EDT Kelsey Eaton MD POINT OF CARE TEST ORDERABLE S Performing Organization Address City/State/ZIP Code Phon e Number [address] POCT Glucose (01/11/2019 9:01 PM EDT) athologist Signature POC Glucose 170 65 - 199 [place] mg/dL [facility] Comment: Supplemental ranges: <140 mg/dL before meals <180 mg/dL all other times of the day Specimen Anatomical Collection Method Collection Time Receive d Time (Source) Location / / Volume Laterality Blood specimen 01/11/2019 9:01 PM 019 9:01 (specimen) EDT PM EDT Kelsey Eaton MD POINT OF CARE TEST ORDERABLE S Performing Organization Address City/State/ZIP [place] [address] POCT Glucose (01/11/2019 7:46 PM EDT) athologist Signature POC Glucose 141 65 - 199 [place] mg/dL [facility] Comment: Supplemental ranges: <140 mg/dL before meals <180 mg/dL all other times of the day Specimen Anatomical Collection Method Collection Time Receive d Time (Source) Location / / Volume Laterality Blood specimen 01/11/2019 7:46 PM 019 7:46 (specimen) EDT PM EDT Kelsey Eaton MD POINT OF CARE TEST ORDERABLE S Performing Organization Address City/State/ZIP [place] [address] POCT Glucose (01/11/2019 6:06 PM EDT) athologist Signature POC Glucose 160 65 - 199 [place] mg/dL [facility] Comment: Supplemental ranges: <140 mg/dL before meals <180 mg/dL all other times of the day Specimen Anatomical Collection Method Collection Time Receive d Time (Source) Location / / Volume Laterality Blood specimen 01/11/2019 6:06 PM 019 6:06 (specimen) EDT PM EDT Kelsey Eaton MD POINT OF CARE TEST ORDERABLE S Performing Organization Address City/State/ZIP [place] [address] (ABNORMAL) Basic Metabolic Panel (non-fasting) (01/11/2019 6:05 PM EDT) athologist Signature Glucose Lvl 169 65 - 199 [place] mg/dL [facility] Comment: Diabetes: >=200 mg/dL plus symp toms BUN 16 8 - 18 mg/dL [facility] Creatinine 0.58 (L) 0.70 - 1.20 mg/dL [facility] Sodium 146 (H) 135 - 145 mmol/L [facility] Potassium 3.2 (L) 3.5 - 5.0 mmol/L [facility] Comment: Please note: ??Patients with WBC >100,00 0 may have falsely elevated Potassium levels. ??For accurate Potassium quantif ication in these patients send serum separator tube (gold top) for subsequent determinations. ??Contact the Clinical Chemistry Laboratory if there are any qu estions. Chloride 116 (H) 98 - 107 mmol/L [facility] CO2 19 (L) 22 - 31 mmol/L [facility] Anion Gap 11 5 - 15 mmol/L [facility] Calcium 9.7 8.5 - 10.5 mg/dL [facility] Estimated GFR 101 >=60 mL/min/1.73 m?? [facility] Comment: The eGFR was calculated using the CKD-EP I equation. As with all creatinine based estimates of kidney function, eGFR values calculated with the CKD-EPI equation are not accurate in patients wi th acute kidney failure, extremes of body mass or the acutely ill. http://[employer]/[facility] [place] CITYnkf eGFR 117 >=60 mL/min/1.73 m?? [facility] Comment: The eGFR was calculated using the CKD-EP I equation. As with all creatinine based estimates of kidney function, eGFR values calculated with the CKD-EPI equation are not accurate in patients wi th acute kidney failure, extremes of body mass or the acutely ill. http://[employer]/[facility] [place] CITYnkf Specimen Anatomical Collection Method Collection Time Receive d Time (Source) Location / / Volume Laterality Blood specimen 01/11/2019 6:05 PM 019 6:21 (specimen) EDT PM EDT Resulting Agency Comment Spec In Lab Kelsey Eaton MD CHEMISTRY ORDERABLES Performing Organization Address City/State/ZIP [place] [address] POCT Glucose (01/11/2019 5:25 PM EDT) athologist Signature POC Glucose 150 65 - 199 [place] [facility] mg/dL [facility] Comment: Supplemental ranges: <140 mg/dL before meals <180 mg/dL all other times of the day Specimen Anatomical Collection Method Collection Time Receive d Time (Source) Location / / Volume Laterality Blood specimen 01/11/2019 5:25 PM 019 5:25 (specimen) EDT PM EDT Kelsey Eaton MD POINT OF CARE TEST ORDERABLE S Performing Organization Address City/State/ZIP [place] [address] POCT Glucose (01/11/2019 4:22 PM EDT) athologist Signature POC Glucose 178 65 - 199 [place] mg/dL [facility] Comment: Supplemental ranges: <140 mg/dL before meals <180 mg/dL all other times of the day Specimen Anatomical Collection Method Collection Time Receive d Time (Source) Location / / Volume Laterality Blood specimen 01/11/2019 4:22 PM 019 4:22 (specimen) EDT PM EDT Kelsey Eaton MD POINT OF CARE TEST ORDERABLE S Performing Organization Address City/State/ZIP [place] [address] (ABNORMAL) POCT Glucose (01/11/2019 3:08 PM EDT) athologist Signature POC Glucose 212 (H) 65 - 199 [place] mg/dL [facility] Comment: Supplemental ranges: <140 mg/dL before meals <180 mg/dL all other times of the day Specimen Anatomical Collection Method Collection Time Receive d Time (Source) Location / / Volume Laterality Blood specimen 01/11/2019 3:08 PM 019 3:08 (specimen) EDT PM EDT Kelsey Eaton MD POINT OF CARE TEST ORDERABLE S Performing Organization Address City/State/ZIP [place] [address] POCT Glucose (01/11/2019 1:53 PM EDT) P athologist Signature POC Glucose 182 65 - 199 [facility] Comment: Supplemental ranges: <140 mg/dL before meals <180 mg/dL all other times of the day Specimen Anatomical Collection Method Collection Time Receive d Time (Source) Location / / Volume Laterality Blood specimen 01/11/2019 1:53 PM 019 1:53 (specimen) EDT PM EDT Kelsey Eaton MD POINT OF CARE TEST ORDERABLE S Performing Organization Address City/[facility]/ZIP [place] [address] C. Difficile Screen (01/11/2019 1:33 PM EDT) Analysis Performed At Patho logist Time Signature C Diff Screen Negative Negative [facility] Comment: C. diff ??Negative Clostridium difficile [...] Organization Address City/State/ZIP [place] [address] POCT Glucose (01/11/2019 12:49 PM EDT) athologist Signature POC Glucose 164 65 - 199 [facility] Comment: Supplemental ranges: <140 mg/dL before meals <180 mg/dL all other times of the day Specimen Anatomical Collection Method Collection Time Receive d Time (Source) Location / / Volume Laterality Blood specimen 01/11/2019 12:49 9 (specimen) PM EDT 12:49 PM EDT Kelsey Eaton MD POINT OF CARE TEST ORDERABLE S Performing Organization Address City/State/ZIP Code Phon e Number [address] POCT Glucose (01/11/2019 11:59 AM EDT) athologist Signature POC Glucose 160 65 - 199 [facility] Comment: Supplemental ranges: <140 mg/dL before meals <180 mg/dL all other times of the day Specimen Anatomical Collection Method Collection Time Receive d Time (Source) Location / / Volume Laterality Blood specimen 01/11/2019 11:59 9 (specimen) AM EDT 11:59 AM EDT Kelsey Eaton MD POINT OF CARE TEST ORDERABLE S Performing Organization Address City/State/ZIP Code Phon e Number [address] POCT Glucose (01/11/2019 10:45 AM EDT) athologist Signature POC Glucose 181 65 - 199 [facility] Comment: Supplemental ranges: <140 mg/dL before meals <180 mg/dL all other times of the day Specimen Anatomical Collection Method Collection Time Receive d Time (Source) Location / / Volume Laterality Blood specimen 01/11/2019 10:45 9 (specimen) AM EDT 10:45 AM EDT Kelsey Eaton MD POINT OF CARE TEST ORDERABLE S Performing Organization Address City/State/ZIP [place] [address] (ABNORMAL) Basic Metabolic Panel (non-fasting) (01/11/2019 10:45 AM EDT) athologist Signature Glucose Lvl 182 65 - 199 [facility] Comment: Diabetes: >=200 mg/dL plus symp toms BUN 20 (H) 8 - 18 mg/dL [facility] Creatinine 0.60 (L) 0.70 - 1.20 mg/dL [facility] Sodium 147 (H) 135 - 145 mmol/L [facility] Potassium 2.9 (Critical) 3.5 - 5.0 mmol/L [facility] Comment: Called by: radha, Read back by: dangelo cordoba, Date/Time:01/11/19 11:36. Please note: ??Patients with WBC >100,00 0 may have falsely elevated Potassium levels. ??For accurate Potassium quantif ication in these patients send serum separator tube (gold top) for subsequent determinations. ??Contact the Clinical Chemistry Laboratory if there are any qu estions. Chloride 116 (H) 98 - 107 mmol/L [facility] CO2 20 (L) 22 - 31 mmol/L [facility] Anion Gap 11 5 - 15 mmol/L [facility] Calcium 9.4 8.5 - 10.5 mg/dL [facility] Estimated GFR 100 >=60 mL/min/1.73 m?? [facility] Comment: The eGFR was calculated using the CKD-EP I equation. As with all creatinine based estimates of kidney function, eGFR values calculated with the CKD-EPI equation are not accurate in patients wi th acute kidney failure, extremes of body mass or the acutely ill. http://Codeoscopic/[facility]nk[place] eGFR 116 >=60 mL/min/1.73 m?? [facility] Comment: The eGFR was calculated using the CKD-EP I equation. As with all creatinine based estimates of kidney function, eGFR values calculated with the CKD-EPI equation are not accurate in patients wi th acute kidney failure, extremes of body mass or the acutely ill. [email or web address] Specimen Anatomical Collection Method Collection Time Receive d Time (Source) Location / / Volume Laterality Blood specimen 01/11/2019 10:45 9 (specimen) AM EDT 10:52 AM EDT Resulting Agency Comment Spec In Lab Kelsey Eaton MD CHEMISTRY ORDERABLES Performing Organization Address City/State/ZIP [place] [address] POCT Glucose (01/11/2019 10:06 AM EDT) athologist Signature POC Glucose 198 65 - 199 [place] mg/dL [facility] Comment: Supplemental ranges: <140 mg/dL before meals <180 mg/dL all other times of the day Specimen Anatomical Collection Method Collection Time Receive d Time (Source) Location / / Volume Laterality Blood specimen 01/11/2019 10:06 9 (specimen) AM EDT 10:06 AM EDT Kelsey Eaton MD POINT OF CARE TEST ORDERABLE S Performing Organization Address City/State/ZIP Code Phon e Number [address] POCT Glucose (01/11/2019 8:25 AM EDT) athologist Signature POC Glucose 192 65 - 199 [place] mg/dL [facility] Comment: Supplemental ranges: <140 mg/dL before meals <180 mg/dL all other times of the day Specimen Anatomical Collection Method Collection Time Receive d Time (Source) Location / / Volume Laterality Blood specimen 01/11/2019 8:25 AM 019 8:25 (specimen) EDT AM EDT Andria Pena III, MD POINT OF CARE TEST ORDER ELINA Performing Organization Address City/[facility]/ZIP Code Phon e Number [address] POCT Glucose (01/11/2019 7:38 AM EDT) athologist Signature POC Glucose 198 65 - 199 [facility] [place] mg/dL [facility] Comment: Supplemental ranges: <140 mg/dL before meals <180 mg/dL all other times of the day Specimen Anatomical Collection Method Collection Time Receive d Time (Source) Location / / Volume Laterality Blood specimen 01/11/2019 7:38 AM 019 7:38 (specimen) EDT AM EDT Andria Pena III, MD POINT OF CARE TEST ORDER ELINA Performing Organization Address City/State/ZIP Code Phon e Number [address] POCT Glucose (01/11/2019 6:13 AM EDT) athologist Signature POC Glucose 174 65 - 199 [facility] mg/dL [facility] Comment: Supplemental ranges: <140 mg/dL before meals <180 mg/dL all other times of the day Specimen Anatomical Collection Method Collection Time Receive d Time (Source) Location / / Volume Laterality Blood specimen 01/11/2019 6:13 AM 019 6:13 (specimen) EDT AM EDT Andria Pena III, MD POINT OF CARE TEST ORDER ELINA Performing Organization Address City/State/ZIP [place] [address] (ABNORMAL) Basic Metabolic Panel (non-fasting) (01/11/2019 5:20 AM EDT) athologist Signature Glucose Lvl 137 65 - 199 [facility] mg/dL [facility] Comment: Diabetes: >=200 mg/dL plus symp toms BUN 24 (H) 8 - 18 mg/dL [facility] Creatinine 0.62 (L) 0.70 - 1.20 mg/dL [facility] Sodium 153 (H) 135 - 145 mmol/L [facility] Potassium 3.2 (L) 3.5 - 5.0 mmol/L [facility] Comment: Please note: ??Patients with WBC >100,00 0 may have falsely elevated Potassium levels. ??For accurate Potassium quantif ication in these patients send serum separator tube (gold top) for subsequent determinations. ??Contact the Clinical Chemistry Laboratory if there are any qu estions. Chloride 119 (H) 98 - 107 mmol/L [facility] CO2 Not Perf [facility] Comment: Add-on request. Sample too old to perform test. Anion Gap Unable to Calculate 5 - 15 mmol/L [facility] Calcium 10.0 8.5 - 10.5 mg/dL [facility] Estimated GFR 99 >=60 mL/min/1.73 m?? [facility] Comment: The eGFR was calculated using the CKD-EP I equation. As with all creatinine based estimates of kidney function, eGFR values calculated with the CKD-EPI equation are not accurate in patients wi th acute kidney failure, extremes of body mass or the acutely ill. http://Codeoscopic/[facility] [place]nk[place] eGFR 114 >=60 mL/min/1.73 m?? [facility] Comment: The eGFR was calculated using the CKD-EP I equation. As with all creatinine based estimates of kidney function, eGFR values calculated with the CKD-EPI equation are not accurate in patients wi th acute kidney failure, extremes of body mass or the acutely ill. http://Codeoscopic/[facility] [place]nkf Specimen Anatomical Collection Method Collection Time Receive d Time (Source) Location / / Volume Laterality Blood specimen Venous Draw / 01/11/2019 5:20 AM 2018 5:43 (specimen) Unknown EDT AM EDT Resulting Agency Comment Spec In Lab Carlos Eduardo Tai MD CHEMISTRY ORDERABLES Performing Organization Address City/[facility]/ZIP Code Phon e Number [address] Magnesium (01/11/2019 5:20 AM EDT) P athologist Signature Magnesium 0.78 0.69 - 1.07 [facility] mmol/L [facility] Specimen Anatomical Collection Method Collection Time Receive d Time (Source) Location / / Volume Laterality Blood specimen 01/11/2019 5:20 AM 019 5:43 (specimen) EDT AM EDT Resulting Agency Comment Spec In Lab Andria Pena III, MD CHEMISTRY ORDERABLES Performing Organization Address City/State/ZIP [place] [address] (ABNORMAL) Hemogram (01/11/2019 5:20 AM EDT) Analysis Performed At Patho logist Time Signature WBC 11.6 (H) 4.0 - 9.5 [facility] x10(3)/[facility] LABORATORY RBC 3.08 (L) 4.00 - [facility] 5.21 [facility] x10(6)/[facility] LABORATORY Hemoglobin 9.1 (L) 11.7 - [place] 15.5 gm/dL [facility] Hematocrit 29.8 (L) 35.7 - [place] 45.8 % [facility] MCV 96.8 (H) 82.6 - [facility] 94.4 [facility] LABORATORY MCH 29.5 27.1 - [place] 32.0 pg [facility] MCHC 30.5 (L) 31.7 - [place] 35.0 gm/dL [facility] Platelets 246 145 - 357 [facility] x10(3)/[facility] LABORATORY RDWSD 48.9 (H) 37.0 - [place] 46.0 [facility] LABORATORY RDWCV 13.9 11.5 - [place] 14.1 % [facility] MPV 10.8 7.6 - 12.9 [facility] LABORATORY nRBC % Auto 0.0 % [facility] nRBC Abs Auto 0.000 0.000 - [place] 0.000 [facility] x10(3)/[facility] LABORATORY Specimen Anatomical Collection Method Collection Time Receive d Time (Source) Location / / Volume Laterality Blood specimen 01/11/2019 5:20 AM 019 5:41 (specimen) EDT AM EDT Resulting Agency Comment Spec In Lab Andria Pena III, MD HEMATOLOGY ORDERABLES Performing Organization Address City/[facility]/ZIP [place] [address] (ABNORMAL) Phosphorus (01/11/2019 5:20 AM EDT) P athologist Signature Phosphorus 2.2 (L) 2.5 - 4.5 [place] mg/dL [facility] Specimen Anatomical Collection Method Collection Time Receive d Time (Source) Location / / Volume Laterality Blood specimen 01/11/2019 5:20 AM 019 5:43 (specimen) EDT AM EDT Resulting Agency Comment Spec In Lab Andria Pena III, MD CHEMISTRY ORDERABLES Performing Organization Address City/State/ZIP [place] [address] POCT Glucose (01/11/2019 5:04 AM EDT) athologist Signature POC Glucose 127 65 - 199 [place] mg/dL [facility] Comment: Supplemental ranges: <140 mg/dL before meals <180 mg/dL all other times of the day Specimen Anatomical Collection Method Collection Time Receive d Time (Source) Location / / Volume Laterality Blood specimen 01/11/2019 5:04 AM 019 5:04 (specimen) EDT AM EDT Andria Pena III, MD POINT OF CARE TEST ORDER ELINA Performing Organization Address City/State/ZIP Code Phon e Number [address] POCT Glucose (01/11/2019 4:21 AM EDT) athologist Signature POC Glucose 132 65 - 199 [place] mg/dL [facility] Comment: Supplemental ranges: <140 mg/dL before meals <180 mg/dL all other times of the day Specimen Anatomical Collection Method Collection Time Receive d Time (Source) Location / / Volume Laterality Blood specimen 01/11/2019 4:21 AM 019 4:21 (specimen) EDT AM EDT Andria Pena III, MD POINT OF CARE TEST ORDER ELINA Performing Organization Address City/State/ZIP [place] [address] POCT Glucose (01/11/2019 3:03 AM EDT) athologist Signature POC Glucose 167 65 - 199 [place] mg/dL [facility] Comment: Supplemental ranges: <140 mg/dL before meals <180 mg/dL all other times of the day Specimen Anatomical Collection Method Collection Time Receive d Time (Source) Location / / Volume Laterality Blood specimen 01/11/2019 3:03 AM 019 3:03 (specimen) EDT AM EDT Andria Pena III, MD POINT OF CARE TEST ORDER ELINA Performing Organization Address City/State/ZIP [place] [address] (ABNORMAL) POCT Glucose (01/11/2019 2:02 AM EDT) athologist Signature POC Glucose 213 (H) 65 - 199 [place] mg/dL [facility] Comment: Supplemental ranges: <140 mg/dL before meals <180 mg/dL all other times of the day Specimen Anatomical Collection Method Collection Time Receive d Time (Source) Location / / Volume Laterality Blood specimen 01/11/2019 2:02 AM 019 2:02 (specimen) EDT AM EDT Andria Pena III, MD POINT OF CARE TEST ORDER ELINA Performing Organization Address City/[facility]/ZIP [place] [address] (ABNORMAL) POCT Glucose (01/11/2019 1:06 AM EDT) athologist Signature POC Glucose 238 (H) 65 - 199 [facility] Comment: Supplemental ranges: <140 mg/dL before meals <180 mg/dL all other times of the day Specimen Anatomical Collection Method Collection Time Receive d Time (Source) Location / / Volume Laterality Blood specimen 01/11/2019 1:06 AM 019 1:06 (specimen) EDT AM EDT Andria Pena III, MD POINT OF CARE TEST ORDER ELINA Performing Organization Address City/[facility]/ZIP [place] [address] (ABNORMAL) POCT Glucose (01/11/2019 12:22 AM EDT) athologist Signature POC Glucose 269 (H) 65 - 199 [place] mg/dL [facility] Comment: Supplemental ranges: <140 mg/dL before meals <180 mg/dL all other times of the day Specimen Anatomical Collection Method Collection Time Receive d Time (Source) Location / / Volume Laterality Blood specimen 01/11/2019 12:22 9 (specimen) AM EDT 12:22 AM EDT Andria Pena III, MD POINT OF CARE TEST ORDER ELINA Performing Organization Address City/State/ZIP Code Ph[place] [address] (ABNORMAL) POCT Glucose (01/10/2019 11:05 PM EDT) athologist Signature POC Glucose 232 (H) 65 - 199 [place] mg/dL [facility] Comment: Supplemental ranges: <140 mg/dL before meals <180 mg/dL all other times of the day Specimen Anatomical Collection Method Collection Time Receive d Time (Source) Location / / Volume Laterality Blood specimen 01/10/2019 11:05 9 (specimen) PM EDT 11:05 PM EDT Andria Pena III, MD POINT OF CARE TEST ORDER ELINA Performing Organization Address City/[facility]/ZIP Code Phon e Number [address] Magnesium (01/10/2019 10:08 PM EDT) athologist Signature Magnesium 0.80 0.69 - 1.07 [facility] mmol/L [facility] Specimen Anatomical Collection Method Collection Time Receive d Time (Source) Location / / Volume Laterality Blood specimen 01/10/2019 10:08 9 (specimen) PM EDT 10:20 PM EDT Resulting Agency Comment Spec In Lab Andria Pena III, MD CHEMISTRY ORDERABLES Performing Organization Address City/[facility]/ZIP [place] [address] (ABNORMAL) Phosphorus (01/10/2019 10:08 PM EDT) athologist Signature Phosphorus 2.2 (L) 2.5 - 4.5 [place] mg/dL [facility] Comment: delta result rechecked-KLA Specimen Anatomical Collection Method Collection Time Receive d Time (Source) Location / / Volume Laterality Blood specimen 01/10/2019 10:08 9 (specimen) PM EDT 10:20 PM EDT Resulting Agency Comment Spec In Lab Andria Pena III, MD CHEMISTRY ORDERABLES Performing Organization Address City/[facility]/ZIP [place] [address] (ABNORMAL) Basic Metabolic Panel (non-fasting) (01/10/2019 10:08 PM EDT) athologist Signature Glucose Lvl 223 (H) 65 - 199 [facility] mg/dL [facility] Comment: Diabetes: >=200 mg/dL plus symp toms BUN 28 (H) 8 - 18 mg/dL [facility] Creatinine 0.65 (L) 0.70 - 1.20 mg/dL [facility] Sodium 152 (H) 135 - 145 mmol/L [facility] Potassium 3.4 (L) 3.5 - 5.0 mmol/L [facility] Comment: Please note: ??Patients with WBC >100,00 0 may have falsely elevated Potassium levels. ??For accurate Potassium quantif ication in these patients send serum separator tube (gold top) for subsequent determinations. ??Contact the Clinical Chemistry Laboratory if there are any qu estions. Chloride 119 (H) 98 - 107 mmol/L [facility] CO2 21 (L) 22 - 31 mmol/L [facility] Anion Gap 12 5 - 15 mmol/L [facility] Calcium 9.9 8.5 - 10.5 mg/dL [facility] Estimated GFR 97 >=60 mL/min/1.73 m?? [facility] Comment: The eGFR was calculated using the CKD-EP I equation. As with all creatinine based estimates of kidney function, eGFR values calculated with the CKD-EPI equation are not accurate in patients wi th acute kidney failure, extremes of body mass or the acutely ill. http://Codeoscopic/[facility] [place]nk[facility] eGFR 113 >=60 mL/min/1.73 m?? [facility] Comment: The eGFR was calculated using the CKD-EP I equation. As with all creatinine based estimates of kidney function, eGFR values calculated with the CKD-EPI equation are not accurate in patients wi th acute kidney failure, extremes of body mass or the acutely ill. http://Codeoscopic/[facility] [place]nkf Specimen Anatomical Collection Method Collection Time Receive d Time (Source) Location / / Volume Laterality Blood specimen 01/10/2019 10:08 9 (specimen) PM EDT 10:20 PM EDT Resulting Agency Comment Spec In Lab Andria Pena III, MD CHEMISTRY ORDERABLES Performing Organization Address City/State/ZIP [place] [address] (ABNORMAL) POCT Glucose (01/10/2019 10:07 PM EDT) athologist Signature POC Glucose 202 (H) 65 - 199 [place] mg/dL [facility] Comment: Supplemental ranges: <140 mg/dL before meals <180 mg/dL all other times of the day Specimen Anatomical Collection Method Collection Time Receive d Time (Source) Location / / Volume Laterality Blood specimen 01/10/2019 10:07 9 (specimen) PM EDT 10:07 PM EDT Andria Pena III, MD POINT OF CARE TEST ORDER ELINA Performing Organization Address City/State/ZIP [place] [address] POCT Glucose (01/10/2019 6:12 PM EDT) athologist Signature POC Glucose 153 65 - 199 [place] mg/dL [facility] Comment: Supplemental ranges: <140 mg/dL before meals <180 mg/dL all other times of the day Specimen Anatomical Collection Method Collection Time Receive d Time (Source) Location / / Volume Laterality Blood specimen 01/10/2019 6:12 PM 019 6:12 (specimen) EDT PM EDT Andria Pena III, MD POINT OF CARE TEST ORDER ELINA Performing Organization Address City/State/ZIP [place] [address] POCT Glucose (01/10/2019 4:48 PM EDT) athologist Signature POC Glucose 189 65 - 199 [place] mg/dL [facility] Comment: Supplemental ranges: <140 mg/dL before meals <180 mg/dL all other times of the day Specimen Anatomical Collection Method Collection Time Receive d Time (Source) Location / / Volume Laterality Blood specimen 01/10/2019 4:48 PM 019 4:48 (specimen) EDT PM EDT Andria Pena III, MD POINT OF CARE TEST ORDER ELINA Performing Organization Address City/State/ZIP [place] [address] (ABNORMAL) Basic Metabolic Panel (non-fasting) (01/10/2019 3:15 PM EDT) athologist Signature Glucose Lvl 309 (H) 65 - 199 [facility] mg/dL [facility] Comment: Diabetes: >=200 mg/dL plus symp toms BUN 30 (H) 8 - 18 mg/dL [facility] Creatinine 0.64 (L) 0.70 - 1.20 mg/dL [facility] Sodium 153 (H) 135 - 145 mmol/L [facility] Potassium 3.1 (L) 3.5 - 5.0 mmol/L [facility] Comment: Please note: ??Patients with WBC >100,00 0 may have falsely elevated Potassium levels. ??For accurate Potassium quantif ication in these patients send serum separator tube (gold top) for subsequent determinations. ??Contact the Clinical Chemistry Laboratory if there are any qu estions. Chloride 118 (H) 98 - 107 mmol/L [facility] CO2 22 22 - 31 mmol/L [facility] Anion Gap 13 5 - 15 mmol/L [facility] Calcium 10.2 8.5 - 10.5 mg/dL [facility] Estimated GFR 98 >=60 mL/min/1.73 m?? [facility] Comment: The eGFR was calculated using the CKD-EP I equation. As with all creatinine based estimates of kidney function, eGFR values calculated with the CKD-EPI equation are not accurate in patients wi th acute kidney failure, extremes of body mass or the acutely ill. http://Codeoscopic/[facility] eGFR 113 >=60 mL/min/1.73 m?? [facility] Comment: The eGFR was calculated using the CKD-EP I equation. As with all creatinine based estimates of kidney function, eGFR values calculated with the CKD-EPI equation are not accurate in patients wi th acute kidney failure, extremes of body mass or the acutely ill. [email or web address] Specimen Anatomical Collection Method Collection Time Receive d Time (Source) Location / / Volume Laterality Blood specimen 01/10/2019 3:15 PM 019 3:46 (specimen) EDT PM EDT Resulting Agency Comment Spec In Lab Andria Pena III, MD CHEMISTRY ORDERABLES Performing Organization Address City/[facility] Phon e Number [address] (ABNORMAL) POCT Glucose (01/10/2019 2:52 PM EDT) P athologist Signature POC Glucose 292 (H) 65 - 199 [facility] Comment: Supplemental ranges: <140 mg/dL before meals <180 mg/dL all other times of the day Specimen Anatomical Collection Method Collection Time Receive d Time (Source) Location / / Volume Laterality Blood specimen 01/10/2019 2:52 PM 019 2:52 (specimen) EDT PM EDT Andria Pena III, MD POINT OF CARE TEST ORDER ELINA Performing Organization Address City/[facility]/ZIP [place] [address] (ABNORMAL) POCT Glucose (01/10/2019 12:25 PM EDT) P athologist Signature POC Glucose 212 (H) 65 - 199 [facility] Comment: Supplemental ranges: <140 mg/dL before meals <180 mg/dL all other times of the day Specimen Anatomical Collection Method Collection Time Receive d Time (Source) Location / / Volume Laterality Blood specimen 01/10/2019 12:25 9 (specimen) PM EDT 12:25 PM EDT Andria Pena III, MD POINT OF CARE TEST ORDER ELINA Performing Organization Address City/[facility]/ZIP [place] [address] POCT Glucose (01/10/2019 11:39 AM EDT) athologist Signature POC Glucose 192 65 - 199 [place] mg/dL [facility] Comment: Supplemental ranges: <140 mg/dL before meals <180 mg/dL all other times of the day Specimen Anatomical Collection Method Collection Time Receive d Time (Source) Location / / Volume Laterality Blood specimen 01/10/2019 11:39 9 (specimen) AM EDT 11:39 AM EDT Andria Pena III, MD POINT OF CARE TEST ORDER ELINA Performing Organization Address City/State/ZIP Code Phon e Number [address] POCT Glucose (01/10/2019 10:46 AM EDT) athologist Signature POC Glucose 154 65 - 199 [facility] mg/dL [facility] Comment: Supplemental ranges: <140 mg/dL before meals <180 mg/dL all other times of the day Specimen Anatomical Collection Method Collection Time Receive d Time (Source) Location / / Volume Laterality Blood specimen 01/10/2019 10:46 9 (specimen) AM EDT 10:46 AM EDT Andria Pena III, MD POINT OF CARE TEST ORDER ELINA Performing Organization Address City/State/ZIP [place] [address] POCT Glucose (01/10/2019 10:10 AM EDT) athologist Signature POC Glucose 139 65 - 199 [place] mg/dL [facility] Comment: Supplemental ranges: <140 mg/dL before meals <180 mg/dL all other times of the day Specimen Anatomical Collection Method Collection Time Receive d Time (Source) Location / / Volume Laterality Blood specimen 01/10/2019 10:10 9 (specimen) AM EDT 10:10 AM EDT Andria Pena III, MD POINT OF CARE TEST ORDER ELINA Performing Organization Address City/State/ZIP [place] [address] Duplex for DVT, Arm, Unilat (01/10/2019 8:36 AM EDT) Component Value Ref Test Analysis Performed At Patholo gist Range Method Time Signature VB Text Department: Vascular Surgery Lab VASCU[facility] Report Patient: [id number] (BLOSSOM PACHECO) CPT: 45404 ICD10: M79.89 Referring Physician: ANDIRA PENA III ?? Phone: Indications: Swelling ICD10 [...] III, MD VASCULAR ORDERABLES Performing Organization Address City/[facility]/ZIP Code Phon e Number [id number] POCT Glucose (01/10/2019 8:18 AM EDT) P athologist Signature POC Glucose 169 65 - 199 [facility] Comment: Supplemental ranges: <140 mg/dL before meals <180 mg/dL all other times of the day Specimen Anatomical Collection Method Collection Time Receive d Time (Source) Location / / Volume Laterality Blood specimen 01/10/2019 8:18 AM 019 8:18 (specimen) EDT AM EDT Andria Pena III, MD POINT OF CARE TEST ORDER ELINA Performing Organization Address City/State/ZIP [place] [address] (ABNORMAL) Phosphorus (01/10/2019 8:10 AM EDT) P athologist Signature Phosphorus 1.0 2.5 - 4.5 [place] (Critical) mg/dL [facility] Comment: Result rechecked. Called by: reggie, Read back by: Mayela arechiga, Date/Time:01/10/19 09:27. Specimen Anatomical Collection Method Collection Time Receive d Time (Source) Location / / Volume Laterality Blood specimen 01/10/2019 8:10 AM 019 8:40 (specimen) EDT AM EDT Resulting Agency Comment Spec In Lab Andria Pena III, MD CHEMISTRY ORDERABLES Performing Organization Address City/[facility]/ZIP Code Phon e Number [address] POCT Glucose (01/10/2019 6:55 AM EDT) athologist [facility] POC Glucose 163 65 - 199 [place] mg/dL [facility] Comment: Supplemental ranges: <140 mg/dL before meals <180 mg/dL all other times of the day Specimen Anatomical Collection Method Collection Time Receive d Time (Source) Location / / Volume Laterality Blood specimen 01/10/2019 6:55 AM 019 6:55 (specimen) EDT AM EDT Andria Pena III, MD POINT OF CARE TEST ORDER ELINA Performing Organization Address City/State/ZIP [place] [address] (ABNORMAL) Hemogram (01/10/2019 5:50 AM EDT) Analysis Performed At Patho logist Time Signature WBC 13.0 (H) 4.0 - 9.5 [place] x10(3)/[facility] LABORATORY RBC 3.19 (L) 4.00 - [place] 5.21 [facility] x10(6)/[facility] LABORATORY Hemoglobin 9.5 (L) 11.7 - [place] 15.5 gm/dL [facility] Hematocrit 30.5 (L) 35.7 - [place] 45.8 % [facility] MCV 95.6 (H) 82.6 - [place] 94.4 [facility] LABORATORY MCH 29.8 27.1 - [place] 32.0 pg [facility] MCHC 31.1 (L) 31.7 - [place] 35.0 gm/dL [facility] Platelets 271 145 - 357 [place] x10(3)/[facility] LABORATORY RDWSD 48.4 (H) 37.0 - [place] 46.0 [facility] LABORATORY RDWCV 13.7 11.5 - [place] 14.1 % [facility] MPV 10.8 7.6 - 12.9 [place] [facility] LABORATORY nRBC % Auto 0.0 % [facility] nRBC Abs Auto 0.000 0.000 - [place] 0.000 [facility] x10(3)/[facility] LABORATORY Specimen Anatomical Collection Method Collection Time Receive d Time (Source) Location / / Volume Laterality Blood specimen 01/10/2019 5:50 AM 019 6:10 (specimen) EDT AM EDT Resulting Agency Comment Spec In Lab Andria Pena III, MD HEMATOLOGY ORDERABLES Performing Organization Address City/State/ZIP Code Phon e Number [address] Magnesium (01/10/2019 5:50 AM EDT) P athologist Signature Magnesium 0.81 0.69 - 1.07 [place] mmol/L [facility] Specimen Anatomical Collection Method Collection Time Receive d Time (Source) Location / / Volume Laterality Blood specimen 01/10/2019 5:50 AM 019 6:10 (specimen) EDT AM EDT Resulting Agency Comment Spec In Lab Andria Pena III, MD CHEMISTRY ORDERABLES Performing Organization Address City/[facility]/ZIP Code Phon e Number [address] (ABNORMAL) Basic Metabolic Panel (non-fasting) (01/10/2019 5:50 AM EDT) athologist Signature Glucose Lvl 183 65 - 199 [facility] mg/dL [facility] Comment: Diabetes: >=200 mg/dL plus symp toms BUN 29 (H) 8 - 18 mg/dL [facility] Creatinine 0.63 (L) 0.70 - 1.20 mg/dL [facility] Sodium 154 (H) 135 - 145 mmol/L [facility] Potassium 3.6 3.5 - 5.0 mmol/L [facility] Comment: Please note: ??Patients with WBC >100,00 0 may have falsely elevated Potassium levels. ??For accurate Potassium quantif ication in these patients send serum separator tube (gold top) for subsequent determinations. ??Contact the Clinical Chemistry Laboratory if there are any qu estions. Chloride 119 (H) 98 - 107 mmol/L [facility] CO2 22 22 - 31 mmol/L [facility] Anion Gap 13 5 - 15 mmol/L [facility] Calcium 10.1 8.5 - 10.5 mg/dL [facility] Estimated GFR 98 >=60 mL/min/1.73 m?? [facility] Comment: The eGFR was calculated using the CKD-EP I equation. As with all creatinine based estimates of kidney function, eGFR values calculated with the CKD-EPI equation are not accurate in patients wi th acute kidney failure, extremes of body mass or the acutely ill. http://Codeoscopic/[facility] [place] CITYnkf eGFR 114 >=60 mL/min/1.73 m?? [facility] Comment: The eGFR was calculated using the CKD-EP I equation. As with all creatinine based estimates of kidney function, eGFR values calculated with the CKD-EPI equation are not accurate in patients wi th acute kidney failure, extremes of body mass or the acutely ill. [email or web address] Specimen Anatomical Collection Method Collection Time Receive d Time (Source) Location / / Volume Laterality Blood specimen 01/10/2019 5:50 AM 019 6:10 (specimen) EDT AM EDT Resulting Agency Comment Spec In Lab Andria Pena III, MD CHEMISTRY ORDERABLES Performing Organization Address City/[facility]/ZIP [place] [address] (ABNORMAL) Phosphorus (01/10/2019 5:50 AM EDT) athologist Signature Phosphorus 1.2 2.5 - 4.5 [place] (Critical) mg/dL [facility] Comment: Results rechecked-franklinf Called by: Xiao lakhani ad back by: dano ortiz_, Date/Time:01/10/19 07:07. Specimen Anatomical Collection Method Collection Time Receive d Time (Source) Location / / Volume Laterality Blood specimen 01/10/2019 5:50 AM 019 6:10 (specimen) EDT AM EDT Resulting Agency Comment Spec In Lab Andria Pena III, MD CHEMISTRY ORDERABLES Performing Organization Address City/[facility]/ZIP [place] [address] POCT Glucose (01/10/2019 5:30 AM EDT) athologist Signature POC Glucose 151 65 - 199 [place] mg/dL [facility] Comment: Supplemental ranges: <140 mg/dL before meals <180 mg/dL all other times of the day Specimen Anatomical Collection Method Collection Time Receive d Time (Source) Location / / Volume Laterality Blood specimen 01/10/2019 5:30 AM 019 5:30 (specimen) EDT AM EDT Andria Pena III, MD POINT OF CARE TEST ORDER ELINA Performing Organization Address City/[facility]/ZIP [place] [address] POCT Glucose (01/10/2019 3:55 AM EDT) athologist Signature POC Glucose 180 65 - 199 [place] mg/dL [facility] Comment: Supplemental ranges: <140 mg/dL before meals <180 mg/dL all other times of the day Specimen Anatomical Collection Method Collection Time Receive d Time (Source) Location / / Volume Laterality Blood specimen 01/10/2019 3:55 AM 019 3:55 (specimen) EDT AM EDT Andria Pena III, MD POINT OF CARE TEST ORDER ELINA Performing Organization Address City/[facility]/ZIP Code Phon e Number [address] POCT Glucose (01/10/2019 2:22 AM EDT) athologist Signature POC Glucose 158 65 - 199 [facility] Comment: Supplemental ranges: <140 mg/dL before meals <180 mg/dL all other times of the day Specimen Anatomical Collection Method Collection Time Receive d Time (Source) Location / / Volume Laterality Blood specimen 01/10/2019 2:22 AM 019 2:22 (specimen) EDT AM EDT Andria Pena III, MD POINT OF CARE TEST ORDER ELINA Performing Organization Address [facility]/ZIP Code Phon e Number [address] POCT Glucose (01/10/2019 12:50 AM EDT) athologist Signature POC Glucose 174 65 - 199 [facility] Comment: Supplemental ranges: <140 mg/dL before meals <180 mg/dL all other times of the day Specimen Anatomical Collection Method Collection Time Receive d Time (Source) Location / / Volume Laterality Blood specimen 01/10/2019 12:50 9 (specimen) AM EDT 12:50 AM EDT Andria Pena III, MD POINT OF CARE TEST ORDER ELINA Performing Organization Address City/[facility] Phon e Number [address] XR Abdomen 1 view (Generic) [...] Signature POC Glucose 172 65 - 199 [facility] Comment: Supplemental ranges: <140 mg/dL before meals <180 mg/dL all other times of the day Specimen Anatomical Collection Method Collection Time Receive d Time (Source) Location / / Volume Laterality Blood specimen 01/09/2019 10:57 9 (specimen) PM EDT 10:57 PM EDT Andria Pena III, MD POINT OF CARE TEST ORDER ELINA Performing Organization Address City/[facility]/ZIP Code Phon e Number [address] Potassium (01/09/2019 10:05 PM EDT) athologist Signature Potassium 3.5 3.5 - 5.0 [facility] mmol/L [facility] Comment: Please note: ??Patients with WBC [...] III, MD CHEMISTRY ORDERABLES Performing Organization Address City/[facility]/ZIP [facility] Phon e Number [address] POCT Glucose (01/09/2019 9:17 PM EDT) athologist Signature POC Glucose 166 65 - 199 [facility] Comment: Supplemental ranges: <140 mg/dL before meals <180 mg/dL all other times of the day Specimen Anatomical Collection Method Collection Time Receive d Time (Source) Location / / Volume Laterality Blood specimen 01/09/2019 9:17 PM 019 9:17 (specimen) EDT PM EDT Andria Pena III, MD POINT OF CARE TEST ORDER ELINA Performing Organization Address City/State/ZIP Code Phon e Number [address] POCT Glucose (01/09/2019 7:50 PM EDT) athologist Signature POC Glucose 155 65 - 199 [facility] Comment: Supplemental ranges: <140 mg/dL before meals <180 mg/dL all other times of the day Specimen Anatomical Collection Method Collection Time Receive d Time (Source) Location / / Volume Laterality Blood specimen 01/09/2019 7:50 PM 019 7:50 (specimen) EDT PM EDT Andria Pena III, MD POINT OF CARE TEST ORDER ELINA Performing Organization Address City/State/ZIP Code Phon e Number [address] POCT Glucose (01/09/2019 6:25 PM EDT) athologist Signature POC Glucose 193 65 - 199 [facility] Comment: Supplemental ranges: <140 mg/dL before meals <180 mg/dL all other times of the day Specimen Anatomical Collection Method Collection Time Receive d Time (Source) Location / / Volume Laterality Blood specimen 01/09/2019 6:25 PM 019 6:25 (specimen) EDT PM EDT Andria Pena III, MD POINT OF CARE TEST ORDER ELINA Performing Organization Address City/State/ZIP Code Phon e Number [address] Green Tube HOLD (01/09/2019 6:10 PM EDT) athologist Signature Green Hold Sample in [facility]. [facility] Specimen Anatomical Collection Method Collection Time Receive d Time (Source) Location / / Volume Laterality Blood specimen No Charge / 01/09/2019 6:10 PM 019 6:16 (specimen) Unknown EDT PM EDT Severino Larson MD CHEMISTRY ORDERABLES Performing Organization Address City/[facility]/ZIP [place] [address] (ABNORMAL) POCT Glucose (01/09/2019 4:08 PM EDT) athologist Signature POC Glucose 219 (H) 65 - 199 [facility] mg/dL [facility] Comment: Supplemental ranges: <140 mg/dL before meals <180 mg/dL all other times of the day Specimen Anatomical Collection Method Collection Time Receive d Time (Source) Location / / Volume Laterality Blood specimen 01/09/2019 4:08 PM 019 4:08 (specimen) EDT PM EDT Sarabjit Castelan MD POINT OF CARE TEST ORDERABLE S Performing Organization Address City/State/ZIP [place] [address] POCT Glucose (01/09/2019 2:32 PM EDT) athologist Signature POC Glucose 193 65 - 199 [place] mg/dL [facility] Comment: Supplemental ranges: <140 mg/dL before meals <180 mg/dL all other times of the day Specimen Anatomical Collection Method Collection Time Receive d Time (Source) Location / / Volume Laterality Blood specimen 01/09/2019 2:32 PM 019 2:32 (specimen) EDT PM EDT Sarabjit Castelan MD POINT OF CARE TEST ORDERABLE S Performing Organization Address City/State/ZIP [place] [address] POCT Glucose (01/09/2019 1:20 PM EDT) athologist Signature POC Glucose 185 65 - 199 [place] mg/dL [facility] Comment: Supplemental ranges: <140 mg/dL before meals <180 mg/dL all other times of the day Specimen Anatomical Collection Method Collection Time Receive d Time (Source) Location / / Volume Laterality Blood specimen 01/09/2019 1:20 PM 019 1:20 (specimen) EDT PM EDT Sarabjit Castelan MD POINT OF CARE TEST ORDERABLE S Performing Organization Address City/State/ZIP [place] [address] POCT Glucose (01/09/2019 12:05 PM EDT) athologist Signature POC Glucose 176 65 - 199 [place] mg/dL [facility] Comment: Supplemental ranges: <140 mg/dL before meals <180 mg/dL all other times of the day Specimen Anatomical Collection Method Collection Time Receive d Time (Source) Location / / Volume Laterality Blood specimen 01/09/2019 12:05 9 (specimen) PM EDT 12:05 PM EDT Sarabjit Castelan MD POINT OF CARE TEST ORDERDANTE S Performing Organization Address City/State/ZIP Code Phon e Number [address] POCT Glucose (01/09/2019 10:21 AM EDT) athologist Signature POC Glucose 189 65 - 199 [place] mg/dL [facility] Comment: Supplemental ranges: <140 mg/dL before meals <180 mg/dL all other times of the day Specimen Anatomical Collection Method Collection Time Receive d Time (Source) Location / / Volume Laterality Blood specimen 01/09/2019 10:21 9 (specimen) AM EDT 10:21 AM EDT Sarabjit Castelan MD POINT OF CARE TEST ORDERDANTE S Performing Organization Address City/State/ZIP [place] [address] POCT Glucose (01/09/2019 9:20 AM EDT) athologist Signature POC Glucose 190 65 - 199 [place] mg/dL [facility] Comment: Supplemental ranges: <140 mg/dL before meals <180 mg/dL all other times of the day Specimen Anatomical Collection Method Collection Time Receive d Time (Source) Location / / Volume Laterality Blood specimen 01/09/2019 9:20 AM 019 9:20 (specimen) EDT AM EDT Sarabjit Castelan MD POINT OF CARE TEST ORDERABLE S Performing Organization Address City/State/ZIP [place] [address] (ABNORMAL) POCT Glucose (01/09/2019 8:01 AM EDT) P athologist Signature POC Glucose 202 (H) 65 - 199 [place] mg/dL [facility] Comment: Supplemental ranges: <140 mg/dL before meals <180 mg/dL all other times of the day Specimen Anatomical Collection Method Collection Time Receive d Time (Source) Location / / Volume Laterality Blood specimen 01/09/2019 8:01 AM 019 8:01 (specimen) EDT AM EDT Sarabjit Castelan MD POINT OF CARE TEST ORDERDANTE S Performing Organization Address City/State/ZIP [place] [address] (ABNORMAL) POCT Glucose (01/09/2019 6:51 AM EDT) P athologist Signature POC Glucose 228 (H) 65 - 199 [facility] mg/dL [facility] Comment: Supplemental ranges: <140 mg/dL before meals <180 mg/dL all other times of the day Specimen Anatomical Collection Method Collection Time Receive d Time (Source) Location / / Volume Laterality Blood specimen 01/09/2019 6:51 AM 019 6:51 (specimen) EDT AM EDT Sarabjit Castelan MD POINT OF CARE TEST ORDERABLE S Performing Organization Address City/State/ZIP [place] [address] (ABNORMAL) POCT Glucose (01/09/2019 5:35 AM EDT) P athologist Signature POC Glucose 231 (H) 65 - 199 [place] mg/dL [facility] Comment: Supplemental ranges: <140 mg/dL before meals <180 mg/dL all other times of the day Specimen Anatomical Collection Method Collection Time Receive d Time (Source) Location / / Volume Laterality Blood specimen 01/09/2019 5:35 AM 019 5:35 (specimen) EDT AM EDT Sarabjit Castelan MD POINT OF CARE TEST ORDERABLE S Performing Organization Address City/State/ZIP [place] [address] (ABNORMAL) POCT Glucose (01/09/2019 4:12 AM EDT) P athologist Signature POC Glucose 233 (H) 65 - 199 [facility] Comment: Supplemental ranges: <140 mg/dL before meals <180 mg/dL all other times of the day Specimen Anatomical Collection Method Collection Time Receive d Time (Source) Location / / Volume Laterality Blood specimen 01/09/2019 4:12 AM 019 4:12 (specimen) EDT AM EDT Sarabjit Castelan MD POINT OF CARE TEST ORDERABLE S Performing Organization Address City/State/ZIP [place] [address] XR Abdomen 1 view [...] below. ? Electronically signed by: EDUARDO May [facility] ([phone]), at 01/09/2019 3:24 AM Narrative 01/09/2019 3:24 [...] number below. Electronically signed by: EDUARDO May [facility] ([phone]), at 01/09/2019 3:24 AM Sarabjit Castelan MD IMG DX ORDERABLES (ABNORMAL) POCT Glucose (01/09/2019 2:58 AM EDT) athologist Signature POC Glucose 226 (H) 65 - 199 [place] mg/dL [facility] Comment: Supplemental ranges: <140 mg/dL before meals <180 mg/dL all other times of the day Specimen Anatomical Collection Method Collection Time Receive d Time (Source) Location / / Volume Laterality Blood specimen 01/09/2019 2:58 AM 019 2:58 (specimen) EDT AM EDT Sarabjit Castelan MD POINT OF CARE TEST ORDERABLE S Performing Organization Address City/State/ZIP Code Phon e Number [address] (ABNORMAL) Phosphorus (01/09/2019 2:07 AM EDT) athologist [facility] Phosphorus 2.0 (L) 2.5 - 4.5 [facility] Specimen Anatomical Collection Method Collection Time Receive d Time (Source) Location / / Volume Laterality Blood specimen Venous Draw / 01/09/2019 2:07 AM 2018 3:21 (specimen) Unknown EDT AM EDT Resulting Agency Comment Spec In Lab Rose Schreiber MD CHEMISTRY ORDERABLES Performing Organization Address City/[facility]/ZIP Code Phon e Number [address] Magnesium (01/09/2019 2:07 AM EDT) athologist Signature Magnesium 0.81 0.69 - 1.07 [facility] mmol/L [facility] Specimen Anatomical Collection Method Collection Time Receive d Time (Source) Location / / Volume Laterality Blood specimen 01/09/2019 2:07 AM 019 2:17 (specimen) EDT AM EDT Resulting Agency Comment Spec In Lab Andria Pena III, MD CHEMISTRY ORDERABLES Performing Organization Address City/[facility]/ZIP Code [place] [address] (ABNORMAL) Basic Metabolic Panel (non-fasting) (01/09/2019 2:07 AM EDT) athologist Signature Glucose Lvl 241 (H) 65 - 199 [facility] mg/dL [facility] Comment: Diabetes: >=200 mg/dL plus symp toms BUN 27 (H) 8 - 18 mg/dL [facility] Creatinine 0.68 (L) 0.70 - 1.20 mg/dL [facility] Sodium 143 135 - 145 mmol/L [facility] Potassium 2.9 (Critical) 3.5 - 5.0 mmol/L [facility] Comment: Called by: gladis, Read back by: Elliot kelly, Date/Time:01/09/19 02:49. Please note: ??Patients with WBC >100,00 0 may have falsely elevated Potassium levels. ??For accurate Potassium quantif ication in these patients send serum separator tube (gold top) for subsequent determinations. ??Contact the Clinical Chemistry Laboratory if there are any qu estions. Chloride 114 (H) 98 - 107 mmol/L [facility] CO2 20 (L) 22 - 31 mmol/L [facility] Anion Gap 9 5 - 15 mmol/L [facility] Calcium 9.9 8.5 - 10.5 mg/dL [facility] Estimated GFR 96 >=60 mL/min/1.73 m?? [facility] Comment: The eGFR was calculated using the CKD-EP I equation. As with all creatinine based estimates of kidney function, eGFR values calculated with the CKD-EPI equation are not accurate in patients wi th acute kidney failure, extremes of body mass or the acutely ill. http://Codeoscopic/[facility] [place] CITYnkf eGFR 111 >=60 mL/min/1.73 m?? [facility] Comment: The eGFR was calculated using the CKD-EP I equation. As with all creatinine based estimates of kidney function, eGFR values calculated with the CKD-EPI equation are not accurate in patients wi th acute kidney failure, extremes of body mass or the acutely ill. http://Codeoscopic/[facility] [place] CITYnkf Specimen Anatomical Collection Method Collection Time Receive d Time (Source) Location / / Volume Laterality Blood specimen 01/09/2019 2:07 AM 019 2:17 (specimen) EDT AM EDT Resulting Agency Comment Spec In Lab Andria Pena III, MD CHEMISTRY ORDERABLES Performing Organization Address City/[facility]/ZIP Code Phon e Number [address] (ABNORMAL) Hemogram (01/09/2019 2:07 AM EDT) Analysis Performed At Patho logist Time Signature WBC 18.7 (H) 4.0 - 9.5 [place] x10(3)/[facility] LABORATORY RBC 3.53 (L) 4.00 - [place] 5.21 [facility] x10(6)/[facility] LABORATORY Hemoglobin 10.7 (L) 11.7 - [facility] 15.5 gm/dL [facility] Hematocrit 33.5 (L) 35.7 - [facility] 45.8 % [facility] MCV 94.9 (H) 82.6 - [facility] 94.4 [facility]ATORY MCH 30.3 27.1 - [place] 32.0 pg [facility] MCHC 31.9 31.7 - [place] 35.0 gm/dL [facility] Platelets 260 145 - 357 [facility] CENTER x10(3)/[facility] LABORATORY RDWSD 47.8 (H) 37.0 - [place] MONICA 46.0 [facility] LABORATORY RDWCV 13.7 11.5 - [facility] 14.1 % [facility] LABORATORY MPV 10.4 7.6 - 12.9 [facility] nRBC % Auto 0.0 % [facility] LABORATORY nRBC Abs Auto 0.000 0.000 - [place] MONICA 0.000 [facility] x10(3)/[facility] LABORATORY Specimen Anatomical Collection Method Collection Time Receive d Time (Source) Location / / Volume Laterality Blood specimen 01/09/2019 2:07 AM 019 2:17 (specimen) EDT AM EDT Resulting Agency Comment Spec In Lab Andria Pena III, MD HEMATOLOGY ORDERABLES Performing Organization Address City/State/ZIP Code Phon e Number [address] (ABNORMAL) POCT Glucose (01/09/2019 2:06 AM EDT) athologist Signature POC Glucose 223 (H) 65 - 199 [facility]dL [facility] LABORATORY Comment: Supplemental ranges: <140 mg/dL before meals <180 mg/dL all other times of the day Specimen Anatomical Collection Method Collection Time Receive d Time (Source) Location / / Volume Laterality Blood specimen 01/09/2019 2:06 AM 019 2:06 (specimen) EDT AM EDT Sarabjit Castelan MD POINT OF CARE TEST ORDERABLE S Performing Organization Address City/State/ZIP Code Phon e Number [address] (ABNORMAL) POCT Glucose (01/09/2019 12:22 AM EDT) athologist Signature POC Glucose 200 (H) 65 - 199 [facility]dL [facility] LABORATORY Comment: Supplemental ranges: <140 mg/dL before meals <180 mg/dL all other times of the day Specimen Anatomical Collection Method Collection Time Receive d Time (Source) Location / / Volume Laterality Blood specimen 01/09/2019 12:22 9 (specimen) AM EDT 12:22 AM EDT Sarabjit Castelan MD POINT OF CARE TEST ORDERABLE S Performing Organization Address City/State/ZIP Code Phon e Number [address] POCT Glucose (01/08/2019 10:43 PM EDT) athologist Signature POC Glucose 173 65 - 199 [facility] mg/dL [facility] LABORATORY Comment: Supplemental ranges: <140 mg/dL before meals <180 mg/dL all other times of the day Specimen Anatomical Collection Method Collection Time Receive d Time (Source) Location / / Volume Laterality Blood specimen 01/08/2019 10:43 9 (specimen) PM EDT 10:43 PM EDT Sarabjit Castelan MD POINT OF CARE TEST ORDERABLE S Performing Organization Address City/State/ZIP Code Phon e Number [address] POCT Glucose (01/08/2019 9:25 PM EDT) athologist Signature POC Glucose 129 65 - 199 [place] mg/dL [facility] LABORATORY Comment: Supplemental ranges: <140 mg/dL before meals <180 mg/dL all other times of the day Specimen Anatomical Collection Method Collection Time Receive d Time (Source) Location / / Volume Laterality Blood specimen 01/08/2019 9:25 PM 019 9:25 (specimen) EDT PM EDT Sarabjit Castelan MD POINT OF CARE TEST ORDERABLE S Performing Organization Address City/State/ZIP Code Phon e Number [address] POCT Glucose (01/08/2019 7:57 PM EDT) athologist Signature POC Glucose 116 65 - 199 [facility] mg/dL [facility] LABORATORY Comment: Supplemental ranges: <140 mg/dL before meals <180 mg/dL all other times of the day Specimen Anatomical Collection Method Collection Time Receive d Time (Source) Location / / Volume Laterality Blood specimen 01/08/2019 7:57 PM 019 7:57 (specimen) EDT PM EDT Sarabjit Castelan MD POINT OF CARE TEST ORDERABLE S Performing Organization Address City/State/ZIP Code Phon e Number [address] POCT Glucose (01/08/2019 6:55 PM EDT) athologist Signature POC Glucose 96 65 - 199 [place] mg/dL [facility] LABORATORY Comment: Supplemental ranges: <140 mg/dL before meals <180 mg/dL all other times of the day Specimen Anatomical Collection Method Collection Time Receive d Time (Source) Location / / Volume Laterality Blood specimen 01/08/2019 6:55 PM 019 6:55 (specimen) EDT PM EDT Sarabjit Castelan MD POINT OF CARE TEST ORDERABLE S Performing Organization Address City/State/ZIP [place] [address] POCT Glucose (01/08/2019 6:26 PM EDT) athologist Signature POC Glucose 104 65 - 199 [place] mg/dL [facility] LABORATORY Comment: Supplemental ranges: <140 mg/dL before meals <180 mg/dL all other times of the day Specimen Anatomical Collection Method Collection Time Receive d Time (Source) Location / / Volume Laterality Blood specimen 01/08/2019 6:26 PM 019 6:26 (specimen) EDT PM EDT Sarabjit Castelan MD POINT OF CARE TEST ORDERABLE S Performing Organization Address City/State/ZIP [place] [address] POCT Glucose (01/08/2019 5:42 PM EDT) athologist Signature POC Glucose 112 65 - 199 [place] mg/dL [facility] LABORATORY Comment: Supplemental ranges: <140 mg/dL before meals <180 mg/dL all other times of the day Specimen Anatomical Collection Method Collection Time Receive d Time (Source) Location / / Volume Laterality Blood specimen 01/08/2019 5:42 PM 019 5:42 (specimen) EDT PM EDT Sarabjit Castelan MD POINT OF CARE TEST ORDERABLE S Performing Organization Address City/State/ZIP [place] [address] POCT Glucose (01/08/2019 5:02 PM EDT) athologist Signature POC Glucose 128 65 - 199 [place] mg/dL [facility] LABORATORY Comment: Supplemental ranges: <140 mg/dL before meals <180 mg/dL all other times of the day Specimen Anatomical Collection Method Collection Time Receive d Time (Source) Location / / Volume Laterality Blood specimen 01/08/2019 5:02 PM 019 5:02 (specimen) EDT PM EDT Sarabjit Castelan MD POINT OF CARE TEST ORDERABLE S Performing Organization Address City/State/ZIP [place] [address] Magnesium (01/08/2019 4:30 PM EDT) athologist Signature Magnesium 0.77 0.69 - 1.07 [facility] mmol/L [facility] LABORATORY Specimen Anatomical Collection Method Collection Time Receive d Time (Source) Location / / Volume Laterality Blood specimen Venous Draw / 01/08/2019 4:30 PM 2018 6:36 (specimen) Unknown EDT PM EDT Resulting Agency Comment Spec In Lab Rose Schreiber MD CHEMISTRY ORDERABLES Performing Organization Address City/[facility]/ZIP Code Phon e Number [address] Phosphorus (01/08/2019 4:30 PM EDT) athologist [facility] Phosphorus 2.5 2.5 - 4.5 [facility]dL [facility] LABORATORY Specimen Anatomical Collection Method Collection Time Receive d Time (Source) Location / / Volume Laterality Blood specimen 01/08/2019 4:30 PM 019 4:45 (specimen) EDT PM EDT Resulting Agency Comment Spec In Lab Ace Henry MD CHEMISTRY ORDERABLES Performing Organization Address City/[facility]/ZIP Code Phon e Number [address] Aspergillus Antigen (01/08/2019 4:30 PM EDT) athologist [facility] Aspergillus Ag <0.500 <0.5 Index [facility] LABORATORY Comment: ADDITIONAL INFORMATIO N This is a qualitative test and the resul tacos index value is not indicative of disease severity. ??Se rial testing is recommended for patients at high risk fo r invasive aspergillosis. This assay was performed using the FDA-c leared [employer] Platelia Aspergillus Galactomannan EIA. Test Performed by: [facility] [address] [place], [place] [address] Specimen Anatomical Collection Method Collection Time Receive d Time (Source) Location / / Volume Laterality Blood specimen 01/08/2019 4:30 PM 019 8:49 (specimen) EDT AM EDT Resulting Agency Comment Spec In Lab Ace Henry MD CHEMISTRY ORDERABLES Performing Organization Address City/[facility]/ZIP [place] [address] Blood culture (01/08/2019 4:30 PM EDT) Patholo gist Method Time Signature Blood Culture No growth [place] ANDERSON at 5 days. [facility] LABORATORY Specimen Anatomical Collection Method Collection Time Receive d Time (Source) Location / / Volume Laterality Blood specimen 01/08/2019 4:30 PM 019 5:10 (specimen) EDT PM EDT Comment: FIRST DRAW: LH Resulting Agency Comment Spec In Lab Aec Henry MD MICROBIOLOGY - BLOOD ORDERAB LES Performing Organization Address [facility]/ZIP Code Phon e Number [address] POCT Glucose (01/08/2019 4:11 PM EDT) P athologist Signature POC Glucose 155 65 - 199 [place] mg/dL [facility] LABORATORY Comment: Supplemental ranges: <140 mg/dL before meals <180 mg/dL all other times of the day Specimen Anatomical Collection Method Collection Time Receive d Time (Source) Location / / Volume Laterality Blood specimen 01/08/2019 4:11 PM 019 4:11 (specimen) EDT PM EDT Sarabjit Castelan MD POINT OF CARE TEST ORDERABLE S Performing Organization Address City/[facility]/ZIP [place] [address] POCT Glucose (01/08/2019 3:05 PM EDT) P athologist Signature POC Glucose 194 65 - 199 [place] mg/dL [facility] LABORATORY Comment: Supplemental ranges: <140 mg/dL before meals <180 mg/dL all other times of the day Specimen Anatomical Collection Method Collection Time Receive d Time (Source) Location / / Volume Laterality Blood specimen 01/08/2019 3:05 PM 019 3:05 (specimen) EDT PM EDT Sarabjit Castelan MD POINT OF CARE TEST ORDERABLE S Performing Organization Address City/State/ZIP Code Phon e Number [place] [id number] HOSPITAL LAB[address]ATORY Drive XR Abdomen 1 view [...] number below. ? Electronically signed by: EDUARDO Tobin [facility] ([phone]), at 01/08/2019 2:32 PM Narrative 01/08/2019 2:32 PM EDT EXAMINATION: XR [...] e number below. Ace Henry MD IMG DX ORDERABLES (ABNORMAL) POCT Glucose (01/08/2019 2:09 PM EDT) athologist Signature POC Glucose 214 (H) 65 - 199 [facility] mg/dL [facility] LABORATORY Comment: Supplemental ranges: <140 mg/dL before meals <180 mg/dL all other times of the day Specimen Anatomical Collection Method Collection Time Receive d Time (Source) Location / / Volume Laterality Blood specimen 01/08/2019 2:09 PM 019 2:09 (specimen) EDT PM EDT Sarabjit Castelan MD POINT OF CARE TEST ORDERABLE S Performing Organization Address City/State/ZIP [place] [address] (ABNORMAL) POCT Glucose (01/08/2019 12:34 PM EDT) athologist Signature POC Glucose 228 (H) 65 - 199 [facility] mg/dL [facility] LABOR[facility] Comment: Supplemental ranges: <140 mg/dL before meals <180 mg/dL all other times of the day Specimen Anatomical Collection Method Collection Time Receive d Time (Source) Location / / Volume Laterality Blood specimen 01/08/2019 12:34 9 (specimen) PM EDT 12:34 PM EDT Sarabjit Castelan MD POINT OF CARE TEST ORDERABLE S Performing Organization Address City/[facility]/ZIP [place] [address] (ABNORMAL) POCT Glucose (01/08/2019 10:39 AM EDT) P athologist Signature POC Glucose 215 (H) 65 - 199 [facility]dL [facility] Comment: Supplemental ranges: <140 mg/dL before meals <180 mg/dL all other times of the day Specimen Anatomical Collection Method Collection Time Receive d Time (Source) Location / / Volume Laterality Blood specimen 01/08/2019 10:39 9 (specimen) AM EDT 10:39 AM EDT Ace Henry MD POINT OF CARE TEST ORDERABLE S Performing Organization Address [facility]/ZIP [place] [address] (ABNORMAL) POCT Glucose (01/08/2019 8:54 AM EDT) P athologist Signature POC Glucose 222 (H) 65 - 199 [facility]/dL [facility] Comment: Supplemental ranges: <140 mg/dL before meals <180 mg/dL all other times of the day Specimen Anatomical Collection Method Collection Time Receive d Time (Source) Location / / Volume Laterality Blood specimen 01/08/2019 8:54 AM 019 8:54 (specimen) EDT AM EDT Ace Henry MD POINT OF CARE TEST ORDERABLE S Performing Organization Address City/[facility]/ZIP [place] [address] EKG 12 Lead (01/08/2019 8:03 AM EDT) Component Value Ref Range Test Analysis Performed Pathologis t Method Time At Signature Ventricular rate 72 BPM MUSE SYSTEM Atrial Rate 72 BPM MUSE SYSTEM P-R Interval 214 ms MUSE SYSTEM QRS Duration 112 ms MUSE SYSTEM Q-T Interval 398 ms MUSE SYSTEM QTC Calculated 435 ms MUSE SYSTEM (Bezet) Calculated P [place] 61 degrees MUSE SYSTEM Calculated R [place] 80 degrees MUSE SYSTEM Calculated T [place] 79 degrees MUSE SYSTEM INTERPRETATION Sinus rhythm with 1st degree A-V block MUSE SYSTEM Otherwise normal ECG When compared with ECG of 04-JAN-2019 21:29, Left bundle branch block is no longer Present I personally reviewed the tracing and edited the fellows int erpretation Confirmed by fellow MD Trey, Kentrell ([id number]) on 01/08/2019 12:28:10 PM Confirmed by MD [...] POC Glucose 240 (H) 65 - 199 [facility] Comment: Supplemental ranges: <140 mg/dL before meals <180 mg/dL all other times of the day Specimen Anatomical Collection Method Collection Time Receive d Time (Source) Location / / Volume Laterality Blood specimen 01/08/2019 7:59 AM 019 7:59 (specimen) EDT AM EDT Ace Henry MD POINT OF CARE TEST ORDERABLE S Performing Organization Address City/[facility] [place] [address] (ABNORMAL) POCT Glucose (01/08/2019 7:18 AM EDT) athologist Signature POC Glucose 227 (H) 65 - 199 [facility]dL [facility] Comment: Supplemental ranges: <140 mg/dL before meals <180 mg/dL all other times of the day Specimen Anatomical Collection Method Collection Time Receive d Time (Source) Location / / Volume Laterality Blood specimen 01/08/2019 7:18 AM 019 7:18 (specimen) EDT AM EDT Ace Henry MD POINT OF CARE TEST ORDERABLE S Performing Organization Address City/[facility]/ZIP [place] [address] (ABNORMAL) POCT Glucose (01/08/2019 5:49 AM EDT) athologist Signature POC Glucose 237 (H) 65 - 199 [facility] mg/dL [facility] Comment: Supplemental ranges: <140 mg/dL before meals <180 mg/dL all other times of the day Specimen Anatomical Collection Method Collection Time Receive d Time (Source) Location / / Volume Laterality Blood specimen 01/08/2019 5:49 AM 019 5:49 (specimen) EDT AM EDT Ace Henry MD POINT OF CARE TEST ORDERABLE S Performing Organization Address City/State/ZIP [place] [address] (ABNORMAL) POCT Glucose (01/08/2019 4:03 AM EDT) athologist Signature POC Glucose 231 (H) 65 - 199 [facility] mg/dL [facility] Comment: Supplemental ranges: <140 mg/dL before meals <180 mg/dL all other times of the day Specimen Anatomical Collection Method Collection Time Receive d Time (Source) Location / / Volume Laterality Blood specimen 01/08/2019 4:03 AM 019 4:03 (specimen) EDT AM EDT Ace Henry MD POINT OF CARE TEST ORDERABLE S Performing Organization Address City/[facility]/ZIP [place] [address] (ABNORMAL) POCT Glucose (01/08/2019 3:09 AM EDT) athologist Signature POC Glucose 219 (H) 65 - 199 [facility] mg/dL [facility] Comment: Supplemental ranges: <140 mg/dL before meals <180 mg/dL all other times of the day Specimen Anatomical Collection Method Collection Time Receive d Time (Source) Location / / Volume Laterality Blood specimen 01/08/2019 3:09 AM 019 3:09 (specimen) EDT AM EDT Ace Henry MD POINT OF CARE TEST ORDERABLE S Performing Organization Address City/State/ZIP [place] [address] POCT Glucose (01/08/2019 2:00 AM EDT) athologist Signature POC Glucose 190 65 - 199 [facility]dL [facility] Comment: Supplemental ranges: <140 mg/dL before meals <180 mg/dL all other times of the day Specimen Anatomical Collection Method Collection Time Receive d Time (Source) Location / / Volume Laterality Blood specimen 01/08/2019 2:00 AM 019 2:00 (specimen) EDT AM EDT Ace Henry MD POINT OF CARE TEST ORDERABLE S Performing Organization Address City/State/ZIP Code Phon e Number [address] Amylase (01/08/2019 1:45 AM EDT) athologist Signature Amylase 86 28 - 100 [facility] Specimen Anatomical Collection Method Collection Time Receive d Time (Source) Location / / Volume Laterality Blood specimen Venous Draw / 01/08/2019 1:45 AM 2018 8:38 (specimen) Unknown EDT AM EDT Resulting Agency Comment Spec In Lab Rose Schreiber MD CHEMISTRY ORDERABLES Performing Organization Address City/[facility]/ZIP Code Phon e Number [address] (ABNORMAL) Lipase (01/08/2019 1:45 AM EDT) athologist Signature Lipase 79 (H) 0 - 60 [facility] LABORATORY Specimen Anatomical Collection Method Collection Time Receive d Time (Source) Location / / Volume Laterality Blood specimen Venous Draw / 01/08/2019 1:45 AM 2018 8:38 (specimen) Unknown EDT AM EDT Resulting Agency Comment Spec In Lab Rose Schreiber MD CHEMISTRY ORDERABLES Performing Organization Address City/[facility]/ZIP Code Phon e Number [address] Phosphorus (01/08/2019 1:45 AM EDT) athologist Signature Phosphorus 3.4 2.5 - 4.5 [place] mg/dL [facility] LABORATORY Specimen Anatomical Collection Method Collection Time Receive d Time (Source) Location / / Volume Laterality Blood specimen 01/08/2019 1:45 AM 019 3:28 (specimen) EDT AM EDT Resulting Agency Comment Spec In Lab Ace Henry MD CHEMISTRY ORDERABLES Performing Organization Address City/State/ZIP [place] [address] (ABNORMAL) Differential, Automated (01/08/2019 1:45 AM EDT) [facility] Method Time Signature Neutrophils % 73.8 % [facility] LABORATORY Neutr Abs (ANC) 8.88 (H) 1.70 - [facility] 6.10 [facility] x10(3[facility] LAB[facility]ORY Lymphocytes % 15.9 % [facility] LABORATORY Lymphocytes Abs 1.9 0.9 - 3.2 [facility] x10(3)/[facility] LABORATORY Monocytes % 8.7 % [facility] LABORATORY Monocyte Abs 1.0 (H) 0.3 - 0.9 [facility] x10(3)/[facility] LABORATORY Eosinophils % 1.2 % [facility] LABORATORY Eosinophils Abs 0.1 0.0 - 0.4 [facility] x10(3)/[facility] LABORATORY Basophils % 0.2 % [facility] LABORATORY Basophils Abs 0.0 0.0 - 0.1 [facility] x10(3)/[facility] LABORATORY Immature Gran % 0.20 % [facility] LABORATORY Comment: Immature granulocytes(IG's)percentage an d absolute count will include metamyelocytes, myelocytes, and promyelo cytes. Blood smears from CBCs yielding IG's will be scanned manually for concor dance. If this scan disagrees with the automated IG or if promyelocytes are not ed, a manual differential will be performed. Irina Gran Abs 0.03 0.00 - 0.04 x10(3)/mcL MAR Y [facility] LABORATORY Specimen Anatomical Collection Method Collection Time Receive d Time (Source) Location / / Volume Laterality Blood specimen 01/08/2019 1:45 AM 019 1:56 (specimen) EDT AM EDT Resulting Agency Comment Spec In Lab Severino Larson MD HEMATOLOGY ORDERABLES Performing Organization Address City/State/ZIP [place] [address] (ABNORMAL) Hemogram (01/08/2019 1:45 AM EDT) Analysis Performed At Patho logist Time Signature WBC 12.0 (H) 4.0 - 9.5 [facility] x[facility](3[facility] LABORATORY RBC 3.68 (L) 4.00 - [place] 5.21 [facility] x10(6)/[facility] LABORATORY Hemoglobin 11.0 (L) 11.7 - [place] 15.5 gm/dL [facility] LABORATORY Hematocrit 34.7 (L) 35.7 - [facility] 45.8 % [facility] MCV 94.3 82.6 - [facility] 94.4 [facility] LABORATORY MCH 29.9 27.1 - [place] 32.0 pg [facility] LABORATORY MCHC 31.7 31.7 - [place] 35.0 gm/dL [facility] LABORATORY Platelets 169 145 - 357 [facility] x10(3)/[facility] LABORATORY RDWSD 46.5 (H) 37.0 - [facility] 46.0 [facility] LABORATORY RDWCV 13.5 11.5 - [facility] 14.1 % [facility] LABORATORY MPV 10.8 7.6 - 12.9 [facility] LABORATORY nRBC % Auto 0.0 % [facility] LABORATORY nRBC Abs Auto 0.000 0.000 - [place] 0.000 [facility] x10(3)/[facility] LABORATORY Specimen Anatomical Collection Method Collection Time Receive d Time (Source) Location / / Volume Laterality Blood specimen 01/08/2019 1:45 AM 019 1:56 (specimen) EDT AM EDT Resulting Agency Comment Spec In Lab Severino Larson MD HEMATOLOGY ORDERABLES Performing Organization Address City/State/ZIP [place] [address] (ABNORMAL) Basic Metabolic Panel (non-fasting) (01/08/2019 1:45 AM EDT) P athologist Signature Glucose Lvl 214 (H) 65 - 199 [facility] mg/dL [facility]ORAT[facility] Comment: Diabetes: >=200 mg/dL plus symp toms BUN 28 (H) 8 - 18 mg/dL [facility] LABORATORY Creatinine 0.92 0.70 - 1.20 mg/dL [facility] LABORATORY Sodium 144 135 - 145 mmol/L [facility] LABORATORY Potassium 3.5 3.5 - 5.0 mmol/L [facility]OR[facility] Comment: Please note: ??Patients with WBC >100,00 0 may have falsely elevated Potassium levels. ??For accurate Potassium quantif ication in these patients send serum separator tube (gold top) for subsequent determinations. ??Contact the Clinical Chemistry Laboratory if there are any qu estions. Chloride 113 (H) 98 - 107 mmol/L [facility] LABORATORY CO2 20 (L) 22 - 31 mmol/L [facility] LAB[facility] Anion Gap 11 5 - 15 mmol/L [facility] LABORATORY Calcium 9.4 8.5 - 10.5 mg/dL [facility] Estimated GFR 68 >=60 mL/min/1.73 m?? [facility] LAB[facility] Comment: The eGFR was calculated using the CKD-EP I equation. As with all creatinine based estimates of kidney function, eGFR values calculated with the CKD-EPI equation are not accurate in patients wi th acute kidney failure, extremes of body mass or the acutely ill. [email or web address] – OKLAHOMA CITYnkf eGFR 79 >=60 mL/min/1.73 m?? [facility] LAB[facility] Comment: The eGFR was calculated using the CKD-EP I equation. As with all creatinine based estimates of kidney function, eGFR values calculated with the CKD-EPI equation are not accurate in patients wi th acute kidney failure, extremes of body mass or the acutely ill. [email or web address] Specimen Anatomical Collection Method Collection Time Receive d Time (Source) Location / / Volume Laterality Blood specimen 01/08/2019 1:45 AM 019 1:56 (specimen) EDT AM EDT Resulting Agency Comment Spec In Lab Ace Henry MD CHEMISTRY ORDERABLES Performing Organization Address City/[facility]/ZIP Code Phon e Number [address] POCT Glucose (01/08/2019 1:07 AM EDT) P athologist Signature POC Glucose 185 65 - 199 [place] mg/dL [facility] Comment: Supplemental ranges: <140 mg/dL before meals <180 mg/dL all other times of the day Specimen Anatomical Collection Method Collection Time Receive d Time (Source) Location / / Volume Laterality Blood specimen 01/08/2019 1:07 AM 019 1:07 (specimen) EDT AM EDT Ace Henry MD POINT OF CARE TEST ORDERABLE S Performing Organization Address City/[facility]/ZIP [place] [address] POCT Glucose (01/08/2019 12:04 AM EDT) athologist Signature POC Glucose 191 65 - 199 [place] mg/dL [facility] Comment: Supplemental ranges: <140 mg/dL before meals <180 mg/dL all other times of the day Specimen Anatomical Collection Method Collection Time Receive d Time (Source) Location / / Volume Laterality Blood specimen 01/08/2019 12:04 9 (specimen) AM EDT 12:04 AM EDT Ace Henry MD POINT OF CARE TEST ORDERABLE S Performing Organization Address City/State/ZIP [place] [address] POCT Glucose (01/07/2019 10:17 PM EDT) P athologist Signature POC Glucose 170 65 - 199 [place] mg/dL [facility] Comment: Supplemental ranges: <140 mg/dL before meals <180 mg/dL all other times of the day Specimen Anatomical Collection Method Collection Time Receive d Time (Source) Location / / Volume Laterality Blood specimen 01/07/2019 10:17 9 (specimen) PM EDT 10:17 PM EDT Ace Henry MD POINT OF CARE TEST ORDERABLE S Performing Organization Address City/[facility]/ZIP [place] [address] POCT Glucose (01/07/2019 8:55 PM EDT) P athologist Signature POC Glucose 149 65 - 199 [place] mg/dL [facility] Comment: Supplemental ranges: <140 mg/dL before meals <180 mg/dL all other times of the day Specimen Anatomical Collection Method Collection Time Receive d Time (Source) Location / / Volume Laterality Blood specimen 01/07/2019 8:55 PM 019 8:55 (specimen) EDT PM EDT Ace Henry MD POINT OF CARE TEST ORDERABLE S Performing Organization Address City/[facility]/ZIP [place] [address] POCT Glucose (01/07/2019 8:05 PM EDT) P athologist Signature POC Glucose 152 65 - 199 [place] mg/dL [facility] Comment: Supplemental ranges: <140 mg/dL before meals <180 mg/dL all other times of the day Specimen Anatomical Collection Method Collection Time Receive d Time (Source) Location / / Volume Laterality Blood specimen 01/07/2019 8:05 PM 019 8:05 (specimen) EDT PM EDT Ace Henry MD POINT OF CARE TEST ORDERABLE S Performing Organization Address City/[facility]/ZIP [place] [address] POCT Glucose (01/07/2019 6:26 PM EDT) P athologist Signature POC Glucose 150 65 - 199 [facility] [place] mg/dL [facility] Comment: Supplemental ranges: <140 mg/dL before meals <180 mg/dL all other times of the day Specimen Anatomical Collection Method Collection Time Receive d Time (Source) Location / / Volume Laterality Blood specimen 01/07/2019 6:26 PM 019 6:26 (specimen) EDT PM EDT Ace Henry MD POINT OF CARE TEST ORDERABLE S Performing Organization Address City/State/ZIP [place] [address] POCT Glucose (01/07/2019 5:02 PM EDT) P athologist Signature POC Glucose 148 65 - 199 [facility] mg/dL [facility] Comment: Supplemental ranges: <140 mg/dL before meals <180 mg/dL all other times of the day Specimen Anatomical Collection Method Collection Time Receive d Time (Source) Location / / Volume Laterality Blood specimen 01/07/2019 5:02 PM 019 5:02 (specimen) EDT PM EDT Ace Henry MD POINT OF CARE TEST ORDERABLE S Performing Organization Address City/[facility]/ZIP [place] [address] Specimen to Pathology (01/07/2019 5:00 PM EDT) Specimen Anatomical Collection Method Collection Time Receive d Time (Source) Location / / Volume Laterality AP Specimen 01/07/2019 5:00 PM 9 5:00 EDT PM EDT Narrative [facility] OR - 01/07/2019 5:00 PM EDT Specimen requisition ordered. ??Separate Pathology report to follow Ace Henry MD PATHOLOGY/CYTOLOGY ORDERABLE S Performing Organization Address City/[facility]/ZIP [place] [address] Specimen to Pathology (01/07/2019 4:29 PM EDT) Specimen Anatomical Collection Method Collection Time Receive d Time (Source) Location / / Volume Laterality AP Specimen 01/07/2019 4:29 PM 9 4:29 EDT PM EDT Narrative [facility] OR - 01/07/2019 4:29 PM EDT Specimen requisition ordered. ??Separate Pathology report to follow Ace Henry MD PATHOLOGY/CYTOLOGY ORDERABLE S Performing Organization Address City/State/ZIP [place] [address] Specimen to Pathology (01/07/2019 4:24 PM EDT) Specimen Anatomical Collection Method Collection Time Receive d Time (Source) Location / / Volume Laterality AP Specimen 01/07/2019 4:24 PM 9 4:24 EDT PM EDT Narrative [facility] - 01/07/2019 4:24 PM EDT Specimen requisition ordered. ??Separate Pathology report to follow Sarabjit Castelan MD PATHOLOGY/CYTOLOGY ORDERABLE S Performing Organization Address City/State/ZIP [place] [address] Surgical Pathology Report (01/07/2019 4:23 PM EDT) Component Value Ref Test Analysis Performed At [facility] Range Method Time Signature Surgical [id number] ? Location: IC3N; IC37; A [facility] Report The signing pathologist has (i) [...] mucosa. Viable resection margins. Electronically signed by: ??Ki Oneal MD Verified: ??01/10/2019 ?Pathologist Performed at: ??-[facility] Dept. of Pathology, [place], [place] DISCUSSION Correction: The gross description of [...] x 1 x 1 cm. Tissue Description: [place] whi te irregular unoriented soft tissue fragment [...] 2.5 cm firm , hemorrhagic, fibrotic focus Entry Level Staff Accountant sections in 3 cassettes as follows: ?B1: ??Hemorrhagic, fibrotic focus ?B2-B3: ??Additional market survey representative sections C - Labeled/Fixative: Small bowel, fresh. Resection Specimen: Intact, small bowel resection. Overall Size: 117 x 4.5 x 4.0 cm. Length/Diameter: 117 x 2.0 cm. External Architecture: Preserved. . SPECIMEN PROCESSING Serosa: Perez to red-brown, f ocally congested with scattered focally hemorrhagic adhesions. Mucosa: Slightly edematous zapata to red-brown but otherwise un remarkable. Wall: Averages 0.3 cm thick. Sections/Processing: Entry Level Staff Accountant sections in 9 cassettes as follows: ?C1: ??Margins, en face ?C2-C9: ??Representing the mucosa ??shb ?Fro andi Section FROZEN SECTION DIAGNOSIS A - Small bowel implant r/o neoplasm for frozen section: AFS1: Fibrosis, capillary pr oliferation and surface active inflammation, no carcinoma is seen. 01/07/19 16:53 Electronically signed by: ??Snow Lozano MD Verified: ??01/07/2019 ?Pathologist Performed at: ??-[facility] Dept. of Pathology, [place], [place] This intraoperative consultation should be interpreted as a preliminary diagnosis pending review of the entire specimen and sp ecial studies, if any. Specimen (Source) Anatomical Collection Method Collection Time Re ceived Time Location / / Volume Laterality 01/07/2019 4:23 PM EDT Ace Henry MD PATHOLOGY/CYTOLOGY ORDERABLE S Performing Organization Address City/State/ZIP [place] [address] POCT Glucose (01/07/2019 4:07 PM EDT) athologist Signature POC Glucose 140 65 - 199 [place] mg/dL [facility] Comment: Supplemental ranges: <140 mg/dL before meals <180 mg/dL all other times of the day Specimen Anatomical Collection Method Collection Time Receive d Time (Source) Location / / Volume Laterality Blood specimen 01/07/2019 4:07 PM 019 4:07 (specimen) EDT PM EDT Ace Henry MD POINT OF CARE TEST ORDERABLE S Performing Organization Address City/State/ZIP [place] [address] POCT Glucose (01/07/2019 3:07 PM EDT) athologist Signature POC Glucose 134 65 - 199 [facility] [place] mg/dL [facility] Comment: Supplemental ranges: <140 mg/dL before meals <180 mg/dL all other times of the day Specimen Anatomical Collection Method Collection Time Receive d Time (Source) Location / / Volume Laterality Blood specimen 01/07/2019 3:07 PM 019 3:07 (specimen) EDT PM EDT Sarabjit Castelan MD POINT OF CARE TEST ORDERABLE S Performing Organization Address City/State/ZIP [place] [address] POCT Glucose (01/07/2019 2:14 PM EDT) athologist Signature POC Glucose 152 65 - 199 [place] mg/dL [facility] Comment: Supplemental ranges: <140 mg/dL before meals <180 mg/dL all other times of the day Specimen Anatomical Collection Method Collection Time Receive d Time (Source) Location / / Volume Laterality Blood specimen 01/07/2019 2:14 PM 019 2:14 (specimen) EDT PM EDT Sarabjit Castelan MD POINT OF CARE TEST ORDERABLE S Performing Organization Address City/State/ZIP [place] [address] Phosphorus (01/07/2019 1:25 PM EDT) athologist Signature Phosphorus 2.6 2.5 - 4.5 [facility] Specimen Anatomical Collection Method Collection Time Receive d Time (Source) Location / / Volume Laterality Blood specimen 01/07/2019 1:25 PM 019 1:33 (specimen) EDT PM EDT Resulting Agency Comment Spec In Lab Ace Henry MD CHEMISTRY ORDERABLES Performing Organization Address City/[facility]/ZIP Code Phon e Number [address] Magnesium (01/07/2019 1:25 PM EDT) athologist Signature Magnesium 0.91 0.69 - 1.07 [facility]/L [facility] Specimen Anatomical Collection Method Collection Time Receive d Time (Source) Location / / Volume Laterality Blood specimen 01/07/2019 1:25 PM 019 1:33 (specimen) EDT PM EDT Resulting Agency Comment Spec In Lab Ace Henry MD CHEMISTRY ORDERABLES Performing Organization Address City/[facility]/ZIP [place] [address] (ABNORMAL) Basic Metabolic Panel (non-fasting) (01/07/2019 1:25 PM EDT) athologist Signature Glucose Lvl 152 65 - 199 [facility] Comment: Diabetes: >=200 mg/dL plus symp toms BUN 22 (H) 8 - 18 mg/dL [facility] Creatinine 0.76 0.70 - 1.20 mg/dL [facility] Sodium 141 135 - 145 mmol/L [facility] Potassium 3.6 3.5 - 5.0 mmol/L [facility] Comment: Please note: ??Patients with WBC >100,00 0 may have falsely elevated Potassium levels. ??For accurate Potassium quantif ication in these patients send serum separator tube (gold top) for subsequent determinations. ??Contact the Clinical Chemistry Laboratory if there are any qu estions. Chloride 113 (H) 98 - 107 mmol/L [facility] CO2 20 (L) 22 - 31 mmol/L [facility] Anion Gap 8 5 - 15 mmol/L [facility] Calcium 9.4 8.5 - 10.5 mg/dL [facility] Estimated GFR 86 >=60 mL/min/1.73 m?? [facility] Comment: The eGFR was calculated using the CKD-EP I equation. As with all creatinine based estimates of kidney function, eGFR values calculated with the CKD-EPI equation are not accurate in patients wi th acute kidney failure, extremes of body mass or the acutely ill. [email or web address] eGFR 100 >=60 mL/min/1.73 m?? [facility] Comment: The eGFR was calculated using the CKD-EP I equation. As with all creatinine based estimates of kidney function, eGFR values calculated with the CKD-EPI equation are not accurate in patients wi th acute kidney failure, extremes of body mass or the acutely ill. [email or web address] Specimen Anatomical Collection Method Collection Time Receive d Time (Source) Location / / Volume Laterality Blood specimen 01/07/2019 1:25 PM 019 1:33 (specimen) EDT PM EDT Resulting Agency Comment Spec In Lab Ace Henry MD CHEMISTRY ORDERABLES Performing Organization Address City/State/ZIP [place] [address] POCT Glucose (01/07/2019 1:16 PM EDT) P athologist Signature POC Glucose 152 65 - 199 [facility] mg/dL [facility] Comment: Supplemental ranges: <140 mg/dL before meals <180 mg/dL all other times of the day Specimen Anatomical Collection Method Collection Time Receive d Time (Source) Location / / Volume Laterality Blood specimen 01/07/2019 1:16 PM 019 1:16 (specimen) EDT PM EDT Sarabjit Castealn MD POINT OF CARE TEST ORDERABLE S Performing Organization Address City/State/ZIP Code Phon e Number [address] POCT Glucose (01/07/2019 12:10 PM EDT) P athologist Signature POC Glucose 146 65 - 199 [place] mg/dL [facility] Comment: Supplemental ranges: <140 mg/dL before meals <180 mg/dL all other times of the day Specimen Anatomical Collection Method Collection Time Receive d Time (Source) Location / / Volume Laterality Blood specimen 01/07/2019 12:10 9 (specimen) PM EDT 12:10 PM EDT Sarabjit Castelan MD POINT OF CARE TEST ORDERABLE S Performing Organization Address City/State/ZIP [place] [address] POCT Glucose (01/07/2019 10:52 AM EDT) P athologist Signature POC Glucose 180 65 - 199 [facility] [place] mg/dL [facility] Comment: Supplemental ranges: <140 mg/dL before meals <180 mg/dL all other times of the day Specimen Anatomical Collection Method Collection Time Receive d Time (Source) Location / / Volume Laterality Blood specimen 01/07/2019 10:52 9 (specimen) AM EDT 10:52 AM EDT Sarabjit Castelan MD POINT OF CARE TEST ORDERABLE S Performing Organization Address City/State/ZIP [place] [address] POCT Glucose (01/07/2019 9:48 AM EDT) P athologist Signature POC Glucose 171 65 - 199 [facility] [place] mg/dL [facility] Comment: Supplemental ranges: <140 mg/dL before meals <180 mg/dL all other times of the day Specimen Anatomical Collection Method Collection Time Receive d Time (Source) Location / / Volume Laterality Blood specimen 01/07/2019 9:48 AM 019 9:48 (specimen) EDT AM EDT Sarabjit Castelan MD POINT OF CARE TEST ORDERABLE S Performing Organization Address City/State/ZIP [place] [address] (ABNORMAL) BLOOD GAS 2 VENOUS (01/07/2019 8:46 AM EDT) Analysis Performed At Patho logist Time Signature pH Ervin 7.36 7.32 - [facility] 7.42 [facility] pCO2 Ervin 41 41 - 51 [facility] LABORATORY pO2 Ervin 37 25 - 40 [facility]ORY HCO3 Ervin 22.7 mmol/L [facility] BE Ervin -2.7 mmol/L [facility] Hgb Blood Gas 11.4 (L) 11.7 - [facility] 15.5 gm/dL [facility] O2HB Ervin 71.1 % [facility] COHB Ervin 0.4 % [facility] Comment: Nonsmokers: 0.5-1.5% COHB Smokers: Variable, but usually less than 10% Toxic: 20-30% COHB Lethal: Greater than 60% COHB METHB Ervin 0.3 <=1.5 % [facility] Na Whole Blood 141 135 - 145 mmol/L [facility] K Whole Blood 3.7 3.5 - 5.0 mmol/L [facility] Comment: Please note: Patients with WBC >100,000 may have falsely elevated Potassium levels. Contact the Clinical Chemistry L aboratory if there are any questions. ICa Whole Blood 1.32 1.15 - 1.33 mmol/L [facility] Comment: Note: ??Total bilirubin higher than 20 m g/dL may lead to falsely low ionized calcium. CL Whole Blood 111 (H) 98 - 107 mmol/L [facility] Gluc Whole Bld 202 (H) 65 - 199 mg/dL [facility] Comment: Diabetes: >=200 mg/dL plus symp toms Lactate WB 2.2 0.5 - 2.2 mmol/L [facility] FIO2 Ervin 30 % [facility] BGas Source Venous [facility] Specimen Anatomical Collection Method Collection Time Receive d Time (Source) Location / / Volume Laterality Blood specimen 01/07/2019 8:46 AM 019 8:46 (specimen) EDT AM EDT Sarabjit Castelan MD CHEMISTRY ORDERABLES Performing Organization Address City/State/ZIP [place] [address] (ABNORMAL) Differential, Automated (01/07/2019 8:40 AM EDT) [facility] gist Method Time Signature Neutrophils % 69.5 % [facility] Neutr Abs (ANC) 7.68 (H) 1.70 - [facility] 6.10 [facility] x10(3[facility] Lymphocytes % 20.3 % [facility] Lymphocytes Abs 2.2 0.9 - 3.2 [facility] x10(3)/[facility] LABORATORY Monocytes % 7.3 % [facility] Monocyte Abs 0.8 0.3 - 0.9 [facility] x10(3)/[facility] LABORATORY Eosinophils % 2.2 % [facility] Eosinophils Abs 0.2 0.0 - 0.4 [facility] x10(3)/[facility] LABORATORY Basophils % 0.2 % [facility] Basophils Abs 0.0 0.0 - 0.1 [facility] x10(3)/[facility] LABORATORY Immature Gran % 0.50 % [facility] Comment: Immature granulocytes(IG's)percentage an d absolute count will include metamyelocytes, myelocytes, and promyelo cytes. Blood smears from CBCs yielding IG's will be scanned manually for concor dance. If this scan disagrees with the automated IG or if promyelocytes are not ed, a manual differential will be performed. Irina Gran Abs 0.06 (H) 0.00 - 0.04 x10(3)/[facility] LABORATORY Specimen Anatomical Collection Method Collection Time Receive d Time (Source) Location / / Volume Laterality Blood specimen 01/07/2019 8:40 AM 019 9:10 (specimen) EDT AM EDT Resulting Agency Comment Spec In Lab Severino Larson MD HEMATOLOGY ORDERABLES Performing Organization Address City/[facility]/ZIP [place] [address] (ABNORMAL) Hemogram (01/07/2019 8:40 AM EDT) Analysis Performed At Patho logist Time Signature WBC 11.0 (H) 4.0 - 9.5 [facility] x10(3)/[facility] LABORATORY RBC 3.43 (L) 4.00 - [place] 5.21 [facility] x10(6)/[facility] LABORATORY Hemoglobin 10.4 (L) 11.7 - [facility] 15.5 gm/dL [facility] Hematocrit 32.6 (L) 35.7 - [facility] 45.8 % [facility] MCV 95.0 (H) 82.6 - [facility] 94.4 [facility] LABORATORY MCH 30.3 27.1 - [facility] 32.0 pg [facility] MCHC 31.9 31.7 - [facility] 35.0 gm/dL [facility] Platelets 155 145 - 357 [facility] x10(3)/[facility] LABORATORY RDWSD 46.2 (H) 37.0 - [facility] 46.0 [facility] LABORATORY RDWCV 13.2 11.5 - [facility] 14.1 % [facility] MPV 10.9 7.6 - 12.9 [facility] LABORATORY nRBC % Auto 0.0 % [facility] nRBC Abs Auto 0.000 0.000 - [facility] 0.000 [facility] x10(3)/[facility] LABORATORY Specimen Anatomical Collection Method Collection Time Receive d Time (Source) Location / / Volume Laterality Blood specimen 01/07/2019 8:40 AM 019 9:10 (specimen) EDT AM EDT Resulting Agency Comment Spec In Lab Severino Larson MD HEMATOLOGY ORDERABLES Performing Organization Address City/State/ZIP [place] [address] (ABNORMAL) Basic Metabolic Panel (non-fasting) (01/07/2019 8:40 AM EDT) athologist Signature Glucose Lvl 202 (H) 65 - 199 [facility] mg/dL [facility] Comment: Diabetes: >=200 mg/dL plus symp toms BUN 24 (H) 8 - 18 mg/dL [facility] Creatinine 0.83 0.70 - 1.20 mg/dL [facility] Sodium 144 135 - 145 mmol/L [facility] Potassium 3.9 3.5 - 5.0 mmol/L [facility] Comment: Please note: ??Patients with WBC >100,00 0 may have falsely elevated Potassium levels. ??For accurate Potassium quantif ication in these patients send serum separator tube (gold top) for subsequent determinations. ??Contact the Clinical Chemistry Laboratory if there are any qu estions. Chloride 111 (H) 98 - 107 mmol/L [facility] CO2 21 (L) 22 - 31 mmol/L [facility] Anion Gap 12 5 - 15 mmol/L [facility] Calcium 9.8 8.5 - 10.5 mg/dL [facility] Estimated GFR 77 >=60 mL/min/1.73 m?? [facility] Comment: The eGFR was calculated using the CKD-EP I equation. As with all creatinine based estimates of kidney function, eGFR values calculated with the CKD-EPI equation are not accurate in patients wi th acute kidney failure, extremes of body mass or the acutely ill. [email or web address] [place] CITYnkf eGFR 89 >=60 mL/min/1.73 m?? [facility] Comment: The eGFR was calculated using the CKD-EP I equation. As with all creatinine based estimates of kidney function, eGFR values calculated with the CKD-EPI equation are not accurate in patients wi th acute kidney failure, extremes of body mass or the acutely ill. [email or web address] [place] CITYnkf Specimen Anatomical Collection Method Collection Time Receive d Time (Source) Location / / Volume Laterality Blood specimen 01/07/2019 8:40 AM 019 9:10 (specimen) EDT AM EDT Resulting Agency Comment Spec In Lab Ace Henry MD CHEMISTRY ORDERABLES Performing Organization Address City/[facility]/ZIP Code Phon e Number [address] POCT Glucose (01/07/2019 8:33 AM EDT) athologist Signature POC Glucose 191 65 - 199 [place] mg/dL [facility] Comment: Supplemental ranges: <140 mg/dL before meals <180 mg/dL all other times of the day Specimen Anatomical Collection Method Collection Time Receive d Time (Source) Location / / Volume Laterality Blood specimen 01/07/2019 8:33 AM 019 8:33 (specimen) EDT AM EDT Sarabjit Castelan MD POINT OF CARE TEST ORDERABLE S Performing Organization Address City/State/ZIP [place] [address] (ABNORMAL) POCT Glucose (01/07/2019 7:15 AM EDT) athologist Signature POC Glucose 235 (H) 65 - 199 [place] mg/dL [facility] Comment: Supplemental ranges: <140 mg/dL before meals <180 mg/dL all other times of the day Specimen Anatomical Collection Method Collection Time Receive d Time (Source) Location / / Volume Laterality Blood specimen 01/07/2019 7:15 AM 019 7:15 (specimen) EDT AM EDT Sarabjit Castelan MD POINT OF CARE TEST ORDERABLE S Performing Organization Address City/State/ZIP [place] [address] (ABNORMAL) POCT Glucose (01/07/2019 6:16 AM EDT) athologist Signature POC Glucose 237 (H) 65 - 199 [place] mg/dL [facility] Comment: Supplemental ranges: <140 mg/dL before meals <180 mg/dL all other times of the day Specimen Anatomical Collection Method Collection Time Receive d Time (Source) Location / / Volume Laterality Blood specimen 01/07/2019 6:16 AM 019 6:16 (specimen) EDT AM EDT Sarabjit Castelan MD POINT OF CARE TEST ORDERABLE S Performing Organization Address City/State/ZIP Code Phon e Number [address] (ABNORMAL) POCT Glucose (01/07/2019 5:17 AM EDT) P athologist Signature POC Glucose 220 (H) 65 - 199 [facility] Comment: Supplemental ranges: <140 mg/dL before meals <180 mg/dL all other times of the day Specimen Anatomical Collection Method Collection Time Receive d Time (Source) Location / / Volume Laterality Blood specimen 01/07/2019 5:17 AM 019 5:17 (specimen) EDT AM EDT Sarabjit Castelan MD POINT OF CARE TEST ORDERDANTE S Performing Organization Address City/State/ZIP Code Phon e Number [address] (ABNORMAL) POCT Glucose (01/07/2019 4:16 AM EDT) P athologist Signature POC Glucose 213 (H) 65 - 199 [facility] Comment: Supplemental ranges: <140 mg/dL before meals <180 mg/dL all other times of the day Specimen Anatomical Collection Method Collection Time Receive d Time (Source) Location / / Volume Laterality Blood specimen 01/07/2019 4:16 AM 019 4:16 (specimen) EDT AM EDT Sarabjit Castelan MD POINT OF CARE TEST ORDERABLE S Performing Organization Address City/State/ZIP Code Phon e Number [address] (ABNORMAL) Differential, Automated (01/07/2019 4:15 AM EDT) Patholo gist Method Time Signature Neutrophils % 70.8 % [facility] Neutr Abs (ANC) 7.40 (H) 1.70 - [facility] 6.10 [facility] x10(3)/[facility] LABORATORY Lymphocytes % 18.1 % [facility] Lymphocytes Abs 1.9 0.9 - 3.2 [facility] x10(3)/[facility] LABORATORY Monocytes % 8.2 % [facility] Monocyte Abs 0.9 0.3 - 0.9 [facility] x10(3)/[facility] LABORATORY Eosinophils % 2.3 % [facility] Eosinophils Abs 0.2 0.0 - 0.4 [facility] x10(3)/[facility] LABORATORY Basophils % 0.1 % [facility] Basophils Abs 0.0 0.0 - 0.1 [facility] x10(3)/[facility] LABORATORY Immature Gran % 0.50 % [facility] Comment: Immature granulocytes(IG's)percentage an d absolute count will include metamyelocytes, myelocytes, and promyelo cytes. Blood smears from CBCs yielding IG's will be scanned manually for concor dance. If this scan disagrees with the automated IG or if promyelocytes are not ed, a manual differential will be performed. Irina Gran Abs 0.05 (H) 0.00 - 0.04 x10(3)/[facility] LABORATORY Specimen Anatomical Collection Method Collection Time Receive d Time (Source) Location / / Volume Laterality Blood specimen 01/07/2019 4:15 AM 019 4:27 (specimen) EDT AM EDT Resulting Agency Comment Spec In Lab Severino Larson MD HEMATOLOGY ORDERABLES Performing Organization Address City/State/ZIP [place] [address] (ABNORMAL) Hemogram (01/07/2019 4:15 AM EDT) Analysis Performed At Patho logist Time Signature WBC 10.4 (H) 4.0 - 9.5 [facility] x10(3)/[facility] LABORATORY RBC 3.46 (L) 4.00 - [facility] 5.21 [facility] x10(6)/[facility] LABORATORY Hemoglobin 10.2 (L) 11.7 - [place] 15.5 gm/dL [facility] Hematocrit 32.5 (L) 35.7 - [place] 45.8 % [facility] MCV 93.9 82.6 - [place] 94.4 [facility] LABORATORY MCH 29.5 27.1 - [place] 32.0 pg [facility] MCHC 31.4 (L) 31.7 - [place] 35.0 gm/dL [facility] Platelets 154 145 - 357 [facility] x10(3)/[facility] LABORATORY RDWSD 46.0 37.0 - [place] [facility] 46.0 [facility] LABORATORY RDWCV 13.3 11.5 - [place] 14.1 % [facility] MPV 10.7 7.6 - 12.9 [place] [facility] LABORATORY nRBC % Auto 0.0 % [facility] nRBC Abs Auto 0.000 0.000 - [place] 0.000 [facility] x10(3)/[facility] LABORATORY Specimen Anatomical Collection Method Collection Time Receive d Time (Source) Location / / Volume Laterality Blood specimen 01/07/2019 4:15 AM 019 4:27 (specimen) EDT AM EDT Resulting Agency Comment Spec In Lab Severino Larson MD HEMATOLOGY ORDERABLES Performing Organization Address City/[facility]/ZIP Code [place] [address] Phosphorus (01/07/2019 4:15 AM EDT) athologist Signature Phosphorus 3.2 2.5 - 4.5 [place] mg/dL [facility] Specimen Anatomical Collection Method Collection Time Receive d Time (Source) Location / / Volume Laterality Blood specimen 01/07/2019 4:15 AM 019 4:27 (specimen) EDT AM EDT Resulting Agency Comment Spec In Lab Ace Henry MD CHEMISTRY ORDERABLES Performing Organization Address City/[facility]/ZIP Code Phon e Number [address] Magnesium (01/07/2019 4:15 AM EDT) P athologist Signature Magnesium 0.77 0.69 - 1.07 [facility] mmol/L [facility] Specimen Anatomical Collection Method Collection Time Receive d Time (Source) Location / / Volume Laterality Blood specimen 01/07/2019 4:15 AM 019 4:27 (specimen) EDT AM EDT Resulting Agency Comment Spec In Lab Ace Henry MD CHEMISTRY ORDERABLES Performing Organization Address City/State/ZIP [place] [address] (ABNORMAL) Basic Metabolic Panel (non-fasting) (01/07/2019 4:15 AM EDT) athologist Signature Glucose Lvl 216 (H) 65 - 199 [facility] mg/dL [facility] Comment: Diabetes: >=200 mg/dL plus symp toms BUN 24 (H) 8 - 18 mg/dL [facility] Creatinine 0.84 0.70 - 1.20 mg/dL [facility] LAB[facility]ORY Sodium 143 135 - 145 mmol/L [facility] Potassium 3.6 3.5 - 5.0 mmol/L [facility] Comment: Please note: ??Patients with WBC >100,00 0 may have falsely elevated Potassium levels. ??For accurate Potassium quantif ication in these patients send serum separator tube (gold top) for subsequent determinations. ??Contact the Clinical Chemistry Laboratory if there are any qu estions. Chloride 110 (H) 98 - 107 mmol/L [facility] CO2 22 22 - 31 mmol/L [facility] Anion Gap 11 5 - 15 mmol/L [facility] Calcium 9.8 8.5 - 10.5 mg/dL [facility] Estimated GFR 76 >=60 mL/min/1.73 m?? [facility] Comment: The eGFR was calculated using the CKD-EP I equation. As with all creatinine based estimates of kidney function, eGFR values calculated with the CKD-EPI equation are not accurate in patients wi th acute kidney failure, extremes of body mass or the acutely ill. [email or web address]/DHnkf eGFR 88 >=60 mL/min/1.73 m?? [facility] Comment: The eGFR was calculated using the CKD-EP I equation. As with all creatinine based estimates of kidney function, eGFR values calculated with the CKD-EPI equation are not accurate in patients wi th acute kidney failure, extremes of body mass or the acutely ill. http://[employer]/[facility] – OKLAHOMA CITYnkf Specimen Anatomical Collection Method Collection Time Receive d Time (Source) Location / / Volume Laterality Blood specimen 01/07/2019 4:15 AM 019 4:27 (specimen) EDT AM EDT Resulting Agency Comment Spec In Lab Ace Henry MD CHEMISTRY ORDERABLES Performing Organization Address City/[facility] [place] [address] (ABNORMAL) POCT Glucose (01/07/2019 3:29 AM EDT) P athologist Signature POC Glucose 208 (H) 65 - 199 [facility] Comment: Supplemental ranges: <140 mg/dL before meals <180 mg/dL all other times of the day Specimen Anatomical Collection Method Collection Time Receive d Time (Source) Location / / Volume Laterality Blood specimen 01/07/2019 3:29 AM 019 3:29 (specimen) EDT AM EDT Sarabjit Castelan MD POINT OF CARE TEST ORDERABLE S Performing Organization Address City/State/ZIP [place] [address] POCT Glucose (01/07/2019 1:43 AM EDT) P athologist Signature POC Glucose 150 65 - 199 [facility]dL [facility] Comment: Supplemental ranges: <140 mg/dL before meals <180 mg/dL all other times of the day Specimen Anatomical Collection Method Collection Time Receive d Time (Source) Location / / Volume Laterality Blood specimen 01/07/2019 1:43 AM 019 1:43 (specimen) EDT AM EDT Sarabjit Castelan MD POINT OF CARE TEST ORDERABLE S Performing Organization Address City/State/ZIP [place] [address] POCT Glucose (01/07/2019 12:43 AM EDT) athologist Signature POC Glucose 128 65 - 199 [place] mg/dL [facility] Comment: Supplemental ranges: <140 mg/dL before meals <180 mg/dL all other times of the day Specimen Anatomical Collection Method Collection Time Receive d Time (Source) Location / / Volume Laterality Blood specimen 01/07/2019 12:43 9 (specimen) AM EDT 12:43 AM EDT Sarabjit Castelan MD POINT OF CARE TEST ORDERABLE S Performing Organization Address City/[facility]/ZIP [place] [address] [facility] [address] POCT Glucose (01/07/2019 12:12 AM EDT) athologist Signature POC Glucose 99 65 - 199 [place] mg/dL [facility] Comment: Supplemental ranges: <140 mg/dL before meals <180 mg/dL all other times of the day Specimen Anatomical Collection Method Collection Time Receive d Time (Source) Location / / Volume Laterality Blood specimen 01/07/2019 12:12 9 (specimen) AM EDT 12:12 AM EDT Sarabjit Castelan MD POINT OF CARE TEST ORDERABLE S Performing Organization Address City/State/ZIP Code Phon e Number [place] [address] POCT Glucose (01/06/2019 11:50 PM EDT) athologist Signature POC Glucose 112 65 - 199 [place] mg/dL [facility] Comment: Supplemental ranges: <140 mg/dL before meals <180 mg/dL all other times of the day Specimen Anatomical Collection Method Collection Time Receive d Time (Source) Location / / Volume Laterality Blood specimen 01/06/2019 11:50 9 (specimen) PM EDT 11:50 PM EDT Sarabjit Castelan MD POINT OF CARE TEST ORDERABLE S Performing Organization Address City/State/ZIP Code Phon e Number [place] [id number] [place] [address] POCT Glucose (01/06/2019 11:17 PM EDT) athologist Signature POC Glucose 109 65 - 199 [place] mg/dL [facility] Comment: Supplemental ranges: <140 mg/dL before meals <180 mg/dL all other times of the day Specimen Anatomical Collection Method Collection Time Receive d Time (Source) Location / / Volume Laterality Blood specimen 01/06/2019 11:17 9 (specimen) PM EDT 11:17 PM EDT Sarabjit Castelan MD POINT OF CARE TEST ORDERABLE S Performing Organization Address City/State/ZIP Code Phon e Number [address] POCT Glucose (01/06/2019 10:05 PM EDT) athologist Signature POC Glucose 143 65 - 199 [place] mg/dL [facility] Comment: Supplemental ranges: <140 mg/dL before meals <180 mg/dL all other times of the day Specimen Anatomical Collection Method Collection Time Receive d Time (Source) Location / / Volume Laterality Blood specimen 01/06/2019 10:05 9 (specimen) PM EDT 10:05 PM EDT Sarabjit Castelan MD POINT OF CARE TEST ORDERABLE S Performing Organization Address City/State/ZIP Code Phon e Number [place], [place] [id number] [place] [address] POCT Glucose (01/06/2019 9:27 PM EDT) athologist Signature POC Glucose 162 65 - 199 [place] mg/dL [facility] Comment: Supplemental ranges: <140 mg/dL before meals <180 mg/dL all other times of the day Specimen Anatomical Collection Method Collection Time Receive d Time (Source) Location / / Volume Laterality Blood specimen 01/06/2019 9:27 PM 019 9:27 (specimen) EDT PM EDT Sarabjit Castelan MD POINT OF CARE TEST ORDERABLE S Performing Organization Address City/State/ZIP Code [place] [address] (ABNORMAL) POCT Glucose (01/06/2019 8:17 PM EDT) athologist Signature POC Glucose 230 (H) 65 - 199 [place] mg/dL [facility] Comment: Supplemental ranges: <140 mg/dL before meals <180 mg/dL all other times of the day Specimen Anatomical Collection Method Collection Time Receive d Time (Source) Location / / Volume Laterality Blood specimen 01/06/2019 8:17 PM 019 8:17 (specimen) EDT PM EDT Sarabjit Castelan MD POINT OF CARE TEST ORDERABLE S Performing Organization Address City/State/ZIP [place] [address] (ABNORMAL) POCT Glucose (01/06/2019 7:38 PM EDT) athologist Signature POC Glucose 213 (H) 65 - 199 [facility] Comment: Supplemental ranges: <140 mg/dL before meals <180 mg/dL all other times of the day Specimen Anatomical Collection Method Collection Time Receive d Time (Source) Location / / Volume Laterality Blood specimen 01/06/2019 7:38 PM 019 7:38 (specimen) EDT PM EDT Sarabjit Castelan MD POINT OF CARE TEST ORDERABLE S Performing Organization Address City/State/ZIP [place] [address] POCT Glucose (01/06/2019 6:59 PM EDT) athologist Signature POC Glucose 183 65 - 199 [place] mg/dL [facility] Comment: Supplemental ranges: <140 mg/dL before meals <180 mg/dL all other times of the day Specimen Anatomical Collection Method Collection Time Receive d Time (Source) Location / / Volume Laterality Blood specimen 01/06/2019 6:59 PM 019 6:59 (specimen) EDT PM EDT Sarabjit Castelan MD POINT OF CARE TEST ORDERABLE S Performing Organization Address City/State/ZIP Code Phon e Number [place] [address] (ABNORMAL) POCT Glucose (01/06/2019 6:23 PM EDT) P athologist Signature POC Glucose 217 (H) 65 - 199 [place] mg/dL [facility] Comment: Supplemental ranges: <140 mg/dL before meals <180 mg/dL all other times of the day Specimen Anatomical Collection Method Collection Time Receive d Time (Source) Location / / Volume Laterality Blood specimen 01/06/2019 6:23 PM 019 6:23 (specimen) EDT PM EDT Sarabjit Castelan MD POINT OF CARE TEST ORDERABLE S Performing Organization Address City/State/ZIP Code Phon e Number [address] CT Chest wo Contrast (Generic) [...] below. ? Electronically signed by: Maciel José [facility] ([phone]), at 01/07/2019 7:03 AM Narrative 01/07/2019 7:03 [...] For questions regarding this report, please contact [facility] number below. Electronically signed by: Maciel José [facility] ([phone]), at 01/07/2019 7:03 AM Ace Henry MD [...] below. ? Electronically signed by: Maciel José [facility] ([phone]), at 01/07/2019 8:20 AM Narrative 01/07/2019 8:20 [...] report.? Changes and final impression discussed w junie Schreiber by Dr. Varun Ang at 8:05 AM on 01/07/2019. I have personally reviewed the image(s) and the residents interpretation and agree with the findings, Brandi Reyes at 01/07/2019 8:20 AM Thank you for letting us participate in the care of this patient. For questions regarding this report, please contact e number below. Electronically signed by: Maciel José [facility] ([phone]), at 01/07/2019 8:20 AM Ace Henry MD IMG CT ORDERABLES (ABNORMAL) POCT Glucose (01/06/2019 5:03 PM EDT) P athologist Signature POC Glucose 266 (H) 65 - 199 [facility] mg/dL [facility] Comment: Supplemental ranges: <140 mg/dL before meals <180 mg/dL all other times of the day Specimen Anatomical Collection Method Collection Time Receive d Time (Source) Location / / Volume Laterality Blood specimen 01/06/2019 5:03 PM 019 5:03 (specimen) EDT PM EDT Sarabjit Castelan MD POINT OF CARE TEST ORDERABLE S Performing Organization Address City/State/ZIP [place] [address] (ABNORMAL) POCT Glucose (01/06/2019 4:00 PM EDT) P athologist Signature POC Glucose 249 (H) 65 - 199 [place] mg/dL [facility] Comment: Supplemental ranges: <140 mg/dL before meals <180 mg/dL all other times of the day Specimen Anatomical Collection Method Collection Time Receive d Time (Source) Location / / Volume Laterality Blood specimen 01/06/2019 4:00 PM 019 4:00 (specimen) EDT PM EDT Sarabjit Castelan MD POINT OF CARE TEST ORDERABLE S Performing Organization Address City/State/ZIP [place] [address] (ABNORMAL) POCT Glucose (01/06/2019 2:57 PM EDT) athologist Signature POC Glucose 251 (H) 65 - 199 [place] mg/dL [facility] Comment: Supplemental ranges: <140 mg/dL before meals <180 mg/dL all other times of the day Specimen Anatomical Collection Method Collection Time Receive d Time (Source) Location / / Volume Laterality Blood specimen 01/06/2019 2:57 PM 019 2:57 (specimen) EDT PM EDT Sarabjit Castelan MD POINT OF CARE TEST ORDERABLE S Performing Organization Address City/State/ZIP [place] [address] (ABNORMAL) POCT Glucose (01/06/2019 2:02 PM EDT) athologist Signature POC Glucose 242 (H) 65 - 199 [place] mg/dL [facility] Comment: Supplemental ranges: <140 mg/dL before meals <180 mg/dL all other times of the day Specimen Anatomical Collection Method Collection Time Receive d Time (Source) Location / / Volume Laterality Blood specimen 01/06/2019 2:02 PM 019 2:02 (specimen) EDT PM EDT Sarabjit Castelan MD POINT OF CARE TEST ORDERABLE S Performing Organization Address City/State/ZIP Code Phon e Number [place] [id number] XR Chest PA or [...] For questions regarding this report, please contact [facility] number below. ? Narrative 01/06/2019 1:49 PM EDT EXAMINATION: XR [...] is suggested. Unchanged cardiac silhouette. Procedure Note Pari Drummond MD - 01/06/2019Formatt ing of this [...] For questions regarding this report, please contact th e number below. Sarabjit Castelan MD IMG DX ORDERABLES (ABNORMAL) POCT Glucose (01/06/2019 12:57 PM EDT) athologist Signature POC Glucose 254 (H) 65 - 199 [facility] mg/dL [facility] Comment: Supplemental ranges: <140 mg/dL before meals <180 mg/dL all other times of the day Specimen Anatomical Collection Method Collection Time Receive d Time (Source) Location / / Volume Laterality Blood specimen 01/06/2019 12:57 9 (specimen) PM EDT 12:57 PM EDT Sarabjit Castelan MD POINT OF CARE TEST ORDERABLE S Performing Organization Address City/State/ZIP [place] [address] (ABNORMAL) Differential, Automated (01/06/2019 12:55 PM EDT) Patholo gist Method Time Signature Neutrophils % 71.4 % [facility]ORY Neutr Abs (ANC) 8.29 (H) 1.70 - [facility] 6.10 [facility] x10(3)/[facility] LAB[facility]ATORY Lymphocytes % 19.1 % [facility] Lymphocytes Abs 2.2 0.9 - 3.2 [facility] x10(3)/[facility] LABORATORY Monocytes % 8.0 % [facility] Monocyte Abs 0.9 0.3 - 0.9 [facility] x10(3)/[facility] LABORATORY Eosinophils % 0.9 % [facility] Eosinophils Abs 0.1 0.0 - 0.4 [facility] x10(3)/[facility] LABORATORY Basophils % 0.3 % [facility] Basophils Abs 0.0 0.0 - 0.1 [facility] x10(3)/[facility] LABORATORY Immature Gran % 0.30 % [facility] Comment: Immature granulocytes(IG's)percentage an d absolute count will include metamyelocytes, myelocytes, and promyelo cytes. Blood smears from CBCs yielding IG's will be scanned manually for concor dance. If this scan disagrees with the automated IG or if promyelocytes are not ed, a manual differential will be performed. Irina Gran Abs 0.04 0.00 - 0.04 x10(3)/[facility] LABORATORY Specimen Anatomical Collection Method Collection Time Receive d Time (Source) Location / / Volume Laterality Blood specimen 01/06/2019 12:55 9 1:11 (specimen) PM EDT PM EDT Resulting Agency Comment Spec In Lab Severino Larson MD HEMATOLOGY ORDERABLES Performing Organization Address City/State/Z[place] [address] (ABNORMAL) Hemogram (01/06/2019 12:55 PM EDT) Analysis Performed At [facility] logist Time Signature WBC 11.6 (H) 4.0 - 9.5 [facility] x10(3)/[facility] LABORATORY RBC 3.67 (L) 4.00 - [place] 5.21 [facility] x10(6)/[facility] LABORATORY Hemoglobin 10.9 (L) 11.7 - [place] 15.5 gm/dL [facility] Hematocrit 34.4 (L) 35.7 - [place] 45.8 % [facility] MCV 93.7 82.6 - [facility] 94.4 [facility] LABORATORY MCH 29.7 27.1 - [place] 32.0 pg [facility] MCHC 31.7 31.7 - [place] 35.0 gm/dL [facility] Platelets 150 145 - 357 [facility] x10(3)/[facility] LABORATORY RDWSD 45.4 37.0 - [facility] 46.0 [facility] LABORATORY RDWCV 13.2 11.5 - [facility] 14.1 % [facility] MPV 10.7 7.6 - 12.9 [facility] LABORATORY nRBC % Auto 0.0 % [facility] LABORATORY nRBC Abs Auto 0.000 0.000 - [place] 0.000 [facility] x10(3)/[facility] LABORATORY Specimen Anatomical Collection Method Collection Time Receive d Time (Source) Location / / Volume Laterality Blood specimen 01/06/2019 12:55 9 1:11 (specimen) PM EDT PM EDT Resulting Agency Comment Spec In Lab Severino Larson MD HEMATOLOGY ORDERABLES Performing Organization Address City/State/ZIP [place] [address] Phosphorus (01/06/2019 12:55 PM EDT) P athologist Signature Phosphorus 2.5 2.5 - 4.5 [place] mg/dL [facility] Specimen Anatomical Collection Method Collection Time Receive d Time (Source) Location / / Volume Laterality Blood specimen 01/06/2019 12:55 9 1:11 (specimen) PM EDT PM EDT Resulting Agency Comment Spec In Lab Ace Henry MD CHEMISTRY ORDERABLES Performing Organization Address City/State/ZIP [place] [address] [facility] [address] Magnesium (01/06/2019 12:55 PM EDT) athologist Signature Magnesium 0.79 0.69 - 1.07 [facility] mmol/L [facility] Specimen Anatomical Collection Method Collection Time Receive d Time (Source) Location / / Volume Laterality Blood specimen 01/06/2019 12:55 9 1:11 (specimen) PM EDT PM EDT Resulting Agency Comment Spec In Lab Ace Henry MD CHEMISTRY ORDERABLES Performing Organization Address City/State/ZIP Code Phon e Number [address] (ABNORMAL) Basic Metabolic Panel (non-fasting) (01/06/2019 12:55 PM EDT) athologist Signature Glucose Lvl 269 (H) 65 - 199 [facility] mg/dL [facility] Comment: Diabetes: >=200 mg/dL plus symp toms BUN 18 8 - 18 mg/dL [facility] Creatinine 0.70 0.70 - 1.20 mg/dL [facility] Sodium 144 135 - 145 mmol/L [facility] Potassium 3.9 3.5 - 5.0 mmol/L [facility] Comment: Please note: ??Patients with WBC >100,00 0 may have falsely elevated Potassium levels. ??For accurate Potassium quantif ication in these patients send serum separator tube (gold top) for subsequent determinations. ??Contact the Clinical Chemistry Laboratory if there are any qu estions. Chloride 108 (H) 98 - 107 mmol/L [facility] CO2 21 (L) 22 - 31 mmol/L [facility] Anion Gap 15 5 - 15 mmol/L [facility] Calcium 9.7 8.5 - 10.5 mg/dL [facility] Estimated GFR 95 >=60 mL/min/1.73 m?? [facility] Comment: The eGFR was calculated using the CKD-EP I equation. As with all creatinine based estimates of kidney function, eGFR values calculated with the CKD-EPI equation are not accurate in patients wi th acute kidney failure, extremes of body mass or the acutely ill. http://Codeoscopic/[facility] [place] eGFR 110 >=60 mL/min/1.73 m?? [facility] Comment: The eGFR was calculated using the CKD-EP I equation. As with all creatinine based estimates of kidney function, eGFR values calculated with the CKD-EPI equation are not accurate in patients wi th acute kidney failure, extremes of body mass or the acutely ill. [email or web address] Specimen Anatomical Collection Method Collection Time Receive d Time (Source) Location / / Volume Laterality Blood specimen 01/06/2019 12:55 9 1:11 (specimen) PM EDT PM EDT Resulting Agency Comment Spec In Lab Ace Henry MD CHEMISTRY ORDERABLES Performing Organization Address City/[facility]/ZIP [place] [address] (ABNORMAL) POCT Glucose (01/06/2019 12:00 PM EDT) athologist Signature POC Glucose 230 (H) 65 - 199 [facility] Comment: Supplemental ranges: <140 mg/dL before meals <180 mg/dL all other times of the day Specimen Anatomical Collection Method Collection Time Receive d Time (Source) Location / / Volume Laterality Blood specimen 01/06/2019 12:00 9 (specimen) PM EDT 12:00 PM EDT Sarabjit Castelan MD POINT OF CARE TEST ORDERABLE S Performing Organization Address City/State/ZIP [place] [address] (ABNORMAL) POCT Glucose (01/06/2019 11:31 AM EDT) P athologist Signature POC Glucose 202 (H) 65 - 199 [facility] mg/dL [facility] Comment: Supplemental ranges: <140 mg/dL before meals <180 mg/dL all other times of the day Specimen Anatomical Collection Method Collection Time Receive d Time (Source) Location / / Volume Laterality Blood specimen 01/06/2019 11:31 9 (specimen) AM EDT 11:31 AM EDT Sarabjit Castelan MD POINT OF CARE TEST ORDERABLE S Performing Organization Address City/State/ZIP Code Phon e Number [place] [id number] US Retroperitoneal Complete (01/06/2019 [...] below. Electronically signed by: Sumanth treviño [facility] [place] ([phone]), at 11:59 AM ? Sumanth Pitts, Staff Physician Electronically Signed Final Report ?? 12:06 pm Narrative 01/06/2019 12:07 PM EDT Renal ?(Signed Final 01/06/2019 12:06 pm) PATIENT INFO: ID #: ? [id number] ?: ??[birth year] (58 yrs) Name: ? BLOSSOM Cory ? Visit Date: 01/06/2019 11:28 am ? TARA PERFORMED BY: Performed By: ? Eulalio Beltran RDMS Attending: ?Gisselle RUIZ, Maurice Ferro. Referred By: ?ACE HENRY Location: ? [place] SERVICE(S) PROVIDED: ??URETRO - Retroperitoneal Complete - [id number] ? [id number] INDICATIONS: ??pt admitted for mixed shock has [...] 12:06 pm ) PATIENT INFO: ID #: [id number] : [birth year] (58 y rs) Name: BLOSSOM Ray Visit Date: 01/06/2019 11:28 am TARA PERFORMED BY: Performed By: Eulalio Beltran RDMS Attending: Sumanth Pitts MD Referred By: ACE HENRY Location: [place] SERVICE(S) PROVIDED: URETRO - [place]roperitoneal Complete [place] [facility] [id number] INDICATIONS: pt admitted for mixed shock has [...] below. Electronically signed by: Sumanth treviño [facility] [place] ([phone]), at 11:59 AM Sumanth Pitts, Staff Physician Electronically Signed Final Report 01/06 12:06 pm Ace Henry MD [facility] ORDER[facility]LES POCT Glucose (01/06/2019 10:10 AM EDT) athologist Signature POC Glucose 197 65 - 199 [facility] Comment: Supplemental ranges: <140 mg/dL before meals <180 mg/dL all other times of the day Specimen Anatomical Collection Method Collection Time Receive d Time (Source) Location / / Volume Laterality Blood specimen 01/06/2019 10:10 9 (specimen) AM EDT 10:10 AM EDT Ace Henry MD POINT OF CARE TEST ORDERABLE S Performing Organization Address City/State/ZIP [place] [address] POCT Glucose (01/06/2019 8:51 AM EDT) athologist Signature POC Glucose 185 65 - 199 [facility] Comment: Supplemental ranges: <140 mg/dL before meals <180 mg/dL all other times of the day Specimen Anatomical Collection Method Collection Time Receive d Time (Source) Location / / Volume Laterality Blood specimen 01/06/2019 8:51 AM 019 8:51 (specimen) EDT AM EDT Ace Henry MD POINT OF CARE TEST ORDERABLE S Performing Organization Address City/State/ZIP [place] [address] POCT Glucose (01/06/2019 8:01 AM EDT) athologist Signature POC Glucose 187 65 - 199 [facility] Comment: Supplemental ranges: <140 mg/dL before meals <180 mg/dL all other times of the day Specimen Anatomical Collection Method Collection Time Receive d Time (Source) Location / / Volume Laterality Blood specimen 01/06/2019 8:01 AM 019 8:01 (specimen) EDT AM EDT Ace Henry MD POINT OF CARE TEST ORDERABLE S Performing Organization Address City/State/ZIP [place] [address] POCT Glucose (01/06/2019 7:04 AM EDT) athologist Signature POC Glucose 192 65 - 199 [place] mg/dL [facility] Comment: Supplemental ranges: <140 mg/dL before meals <180 mg/dL all other times of the day Specimen Anatomical Collection Method Collection Time Receive d Time (Source) Location / / Volume Laterality Blood specimen 01/06/2019 7:04 AM 019 7:04 (specimen) EDT AM EDT Ace Henry MD POINT OF CARE TEST ORDERABLE S Performing Organization Address City/[facility]/ZIP Code Phon e Number [place] [phone] POCT Glucose (01/06/2019 5:58 AM EDT) athologist Signature POC Glucose 164 65 - 199 [place] mg/dL [facility] Comment: Supplemental ranges: <140 mg/dL before meals <180 mg/dL all other times of the day Specimen Anatomical Collection Method Collection Time Receive d Time (Source) Location / / Volume Laterality Blood specimen 01/06/2019 5:58 AM 019 5:58 (specimen) EDT AM EDT Ace Henry MD POINT OF CARE TEST ORDERABLE S Performing Organization Address City/State/ZIP [place] [address] POCT Glucose (01/06/2019 5:17 AM EDT) athologist Signature POC Glucose 132 65 - 199 [place] mg/dL [facility] Comment: Supplemental ranges: <140 mg/dL before meals <180 mg/dL all other times of the day Specimen Anatomical Collection Method Collection Time Receive d Time (Source) Location / / Volume Laterality Blood specimen 01/06/2019 5:17 AM 019 5:17 (specimen) EDT AM EDT Ace Henry MD POINT OF CARE TEST ORDERABLE S Performing Organization Address City/State/ZIP [place] [address] (ABNORMAL) Differential, Automated (01/06/2019 4:20 AM EDT) [facility] Method Time Signature Neutrophils % 67.8 % [facility] Neutr Abs (ANC) 9.94 (H) 1.70 - [facility] 6.10 [facility] x10(3[facility]ORY Lymphocytes % 21.5 % [facility] Lymphocytes Abs 3.2 0.9 - 3.2 [facility] x10(3)/[facility] LABORATORY Monocytes % 9.7 % [facility] Monocyte Abs 1.4 (H) 0.3 - 0.9 [facility] x10(3)/[facility] LABORATORY Eosinophils % 0.2 % [facility] Eosinophils Abs 0.0 0.0 - 0.4 [facility] x10(3)/[facility] LABORATORY Basophils % 0.3 % [facility] Basophils Abs 0.0 0.0 - 0.1 [facility] x10(3)/[facility] LABORATORY Immature Gran % 0.50 % [facility] Comment: Immature granulocytes(IG's)percentage an d absolute count will include metamyelocytes, myelocytes, and promyelo cytes. Blood smears from CBCs yielding IG's will be scanned manually for concor dance. If this scan disagrees with the automated IG or if promyelocytes are not ed, a manual differential will be performed. Irina Gran Abs 0.07 (H) 0.00 - 0.04 x10(3)/[facility] LABORATORY Specimen Anatomical Collection Method Collection Time Receive d Time (Source) Location / / Volume Laterality Blood specimen 01/06/2019 4:20 AM 019 4:35 (specimen) EDT AM EDT Resulting Agency Comment Spec In Lab Severino Larson MD HEMATOLOGY ORDERABLES Performing Organization Address City/State/Z[place] [address] (ABNORMAL) Hemogram (01/06/2019 4:20 AM EDT) Analysis Performed At Patho logist Time Signature WBC 14.6 (H) 4.0 - 9.5 [facility] x[facility](3[facility] LABORATORY RBC 3.79 (L) 4.00 - [place] 5.21 [facility] x10(6)/[facility] LABORATORY Hemoglobin 11.5 (L) 11.7 - [facility] 15.5 gm/dL [facility] Hematocrit 35.5 (L) 35.7 - [place] 45.8 % [facility] MCV 93.7 82.6 - [facility] 94.4 [facility] LABORATORY MCH 30.3 27.1 - [place] 32.0 pg [facility] MCHC 32.4 31.7 - [place] 35.0 gm/dL [facility] Platelets 162 145 - 357 [facility] x10(3)/[facility] LABORATORY RDWSD 45.1 37.0 - [facility] 46.0 [facility] LABORATORY RDWCV 13.2 11.5 - [place] 14.1 % [facility] MPV 10.4 7.6 - 12.9 [facility] nRBC % Auto 0.0 % [facility] nRBC Abs Auto 0.000 0.000 - [place] 0.000 [facility] x10(3)/[facility] LABORATORY Specimen Anatomical Collection Method Collection Time Receive d Time (Source) Location / / Volume Laterality Blood specimen 01/06/2019 4:20 AM 019 4:35 (specimen) EDT AM EDT Resulting Agency Comment Spec In Lab Severino Larson MD HEMATOLOGY ORDERABLES Performing Organization Address City/State/ZIP [place] [address] (ABNORMAL) Basic Metabolic Panel (non-fasting) (01/06/2019 4:20 AM EDT) P athologist Signature Glucose Lvl 155 65 - 199 [facility] mg/dL [facility] Comment: Diabetes: >=200 mg/dL plus symp toms BUN 17 8 - 18 mg/dL [facility] Creatinine 0.78 0.70 - 1.20 mg/dL [facility] Sodium 143 135 - 145 mmol/L [facility] Potassium 3.6 3.5 - 5.0 mmol/L [facility] Comment: delta result rechecked-KLA Please note: ??Patients with WBC >100,00 0 may have falsely elevated Potassium levels. ??For accurate Potassium quantif ication in these patients send serum separator tube (gold top) for subsequent determinations. ??Contact the Clinical Chemistry Laboratory if there are any qu estions. Chloride 111 (H) 98 - 107 mmol/L [facility] CO2 22 22 - 31 mmol/L [facility] Anion Gap 10 5 - 15 mmol/L [facility] Calcium 9.8 8.5 - 10.5 mg/dL [facility] Estimated GFR 83 >=60 mL/min/1.73 m?? [facility] Comment: The eGFR was calculated using the CKD-EP I equation. As with all creatinine based estimates of kidney function, eGFR values calculated with the CKD-EPI equation are not accurate in patients wi th acute kidney failure, extremes of body mass or the acutely ill. http://Codeoscopic/[facility] [place]nk[place] eGFR 96 >=60 mL/min/1.73 m?? [facility] Comment: The eGFR was calculated using the CKD-EP I equation. As with all creatinine based estimates of kidney function, eGFR values calculated with the CKD-EPI equation are not accurate in patients wi th acute kidney failure, extremes of body mass or the acutely ill. http://Codeoscopic/[facility] [place] CITYnkf Specimen Anatomical Collection Method Collection Time Receive d Time (Source) Location / / Volume Laterality Blood specimen 01/06/2019 4:20 AM 019 4:35 (specimen) EDT AM EDT Resulting Agency Comment Spec In Lab Ace Henry MD CHEMISTRY ORDERABLES Performing Organization Address City/State/ZIP [place] [address] Phosphorus (01/06/2019 4:20 AM EDT) athologist Signature Phosphorus 2.5 2.5 - 4.5 [place] mg/dL [facility] Comment: delta result rechecked-KLA Specimen Anatomical Collection Method Collection Time Receive d Time (Source) Location / / Volume Laterality Blood specimen 01/06/2019 4:20 AM 019 4:35 (specimen) EDT AM EDT Resulting Agency Comment Spec In Lab Ace Henry MD CHEMISTRY ORDERABLES Performing Organization Address City/State/ZIP Code Phon e Number [address] Magnesium (01/06/2019 4:20 AM EDT) athologist Signature Magnesium 0.69 0.69 - 1.07 [place] mmol/L [facility] Specimen Anatomical Collection Method Collection Time Receive d Time (Source) Location / / Volume Laterality Blood specimen 01/06/2019 4:20 AM 019 4:35 (specimen) EDT AM EDT Resulting Agency Comment Spec In Lab Ace Henry MD CHEMISTRY ORDERABLES Performing Organization Address City/State/ZIP Code Phon e Number [address] POCT Glucose (01/06/2019 4:00 AM EDT) athologist Signature POC Glucose 150 65 - 199 [place] mg/dL [facility] Comment: Supplemental ranges: <140 mg/dL before meals <180 mg/dL all other times of the day Specimen Anatomical Collection Method Collection Time Receive d Time (Source) Location / / Volume Laterality Blood specimen 01/06/2019 4:00 AM 019 4:00 (specimen) EDT AM EDT Ace Henry MD POINT OF CARE TEST ORDERABLE S Performing Organization Address City/[facility]/ZIP Code Phon e Number [address] POCT Glucose (01/06/2019 2:59 AM EDT) athologist Signature POC Glucose 145 65 - 199 [place] mg/dL [facility] Comment: Supplemental ranges: <140 mg/dL before meals <180 mg/dL all other times of the day Specimen Anatomical Collection Method Collection Time Receive d Time (Source) Location / / Volume Laterality Blood specimen 01/06/2019 2:59 AM 019 2:59 (specimen) EDT AM EDT Ace Henry MD POINT OF CARE TEST ORDERABLE S Performing Organization Address City/State/ZIP Code Phon e Number [address] POCT Glucose (01/06/2019 1:50 AM EDT) athologist Signature POC Glucose 168 65 - 199 [place] mg/dL [facility] Comment: Supplemental ranges: <140 mg/dL before meals <180 mg/dL all other times of the day Specimen Anatomical Collection Method Collection Time Receive d Time (Source) Location / / Volume Laterality Blood specimen 01/06/2019 1:50 AM 019 1:50 (specimen) EDT AM EDT Ace Henry MD POINT OF CARE TEST ORDERABLE S Performing Organization Address City/State/ZIP Code Phon e Number [address] POCT Glucose (01/06/2019 1:07 AM EDT) athologist Signature POC Glucose 166 65 - 199 [place] mg/dL [facility] Comment: Supplemental ranges: <140 mg/dL before meals <180 mg/dL all other times of the day Specimen Anatomical Collection Method Collection Time Receive d Time (Source) Location / / Volume Laterality Blood specimen 01/06/2019 1:07 AM 019 1:07 (specimen) EDT AM EDT Ace Henry MD POINT OF CARE TEST ORDERABLE S Performing Organization Address City/State/ZIP Code Phon e Number [address] POCT Glucose (01/05/2019 11:55 PM EDT) athologist Signature POC Glucose 171 65 - 199 [place] mg/dL [facility] Comment: Supplemental ranges: <140 mg/dL before meals <180 mg/dL all other times of the day Specimen Anatomical Collection Method Collection Time Receive d Time (Source) Location / / Volume Laterality Blood specimen 01/05/2019 11:55 9 (specimen) PM EDT 11:55 PM EDT Ace Henry MD POINT OF CARE TEST ORDERABLE S Performing Organization Address City/State/ZIP Code Phon e Number [address] POCT Glucose (01/05/2019 10:55 PM EDT) athologist Signature POC Glucose 181 65 - 199 [place] mg/dL [facility] Comment: Supplemental ranges: <140 mg/dL before meals <180 mg/dL all other times of the day Specimen Anatomical Collection Method Collection Time Receive d Time (Source) Location / / Volume Laterality Blood specimen 01/05/2019 10:55 9 (specimen) PM EDT 10:55 PM EDT Ace Henry MD POINT OF CARE TEST ORDERABLE S Performing Organization Address City/State/ZIP Code Phon e Number [address] POCT Glucose (01/05/2019 10:08 PM EDT) athologist Signature POC Glucose 161 65 - 199 [place] mg/dL [facility] Comment: Supplemental ranges: <140 mg/dL before meals <180 mg/dL all other times of the day Specimen Anatomical Collection Method Collection Time Receive d Time (Source) Location / / Volume Laterality Blood specimen 01/05/2019 10:08 9 (specimen) PM EDT 10:08 PM EDT Ace Henry MD POINT OF CARE TEST ORDERABLE S Performing Organization Address City/State/ZIP Code Phon e Number [address] POCT Glucose (01/05/2019 9:12 PM EDT) athologist Signature POC Glucose 176 65 - 199 [place] mg/dL [facility] Comment: Supplemental ranges: <140 mg/dL before meals <180 mg/dL all other times of the day Specimen Anatomical Collection Method Collection Time Receive d Time (Source) Location / / Volume Laterality Blood specimen 01/05/2019 9:12 PM 019 9:12 (specimen) EDT PM EDT Ace Henry MD POINT OF CARE TEST ORDERABLE S Performing Organization Address City/State/ZIP Code Phon e Number [address] POCT Glucose (01/05/2019 8:11 PM EDT) athologist Signature POC Glucose 155 65 - 199 [place] mg/dL [facility] Comment: Supplemental ranges: <140 mg/dL before meals <180 mg/dL all other times of the day Specimen Anatomical Collection Method Collection Time Receive d Time (Source) Location / / Volume Laterality Blood specimen 01/05/2019 8:11 PM 019 8:11 (specimen) EDT PM EDT Ace Henry MD POINT OF CARE TEST ORDERABLE S Performing Organization Address City/State/ZIP Code Phon e Number [address] POCT Glucose (01/05/2019 7:04 PM EDT) athologist Signature POC Glucose 170 65 - 199 [place] mg/dL [facility] Comment: Supplemental ranges: <140 mg/dL before meals <180 mg/dL all other times of the day Specimen Anatomical Collection Method Collection Time Receive d Time (Source) Location / / Volume Laterality Blood specimen 01/05/2019 7:04 PM 019 7:04 (specimen) EDT PM EDT Ace Henry MD POINT OF CARE TEST ORDERABLE S Performing Organization Address City/State/ZIP Code Phon e Number [address] POCT Glucose (01/05/2019 5:34 PM EDT) athologist Signature POC Glucose 186 65 - 199 [place] mg/dL [facility] Comment: Supplemental ranges: <140 mg/dL before meals <180 mg/dL all other times of the day Specimen Anatomical Collection Method Collection Time Receive d Time (Source) Location / / Volume Laterality Blood specimen 01/05/2019 5:34 PM 019 5:34 (specimen) EDT PM EDT Ace Henry MD POINT OF CARE TEST ORDERABLE S Performing Organization Address City/State/ZIP Code Phon e Number [place] [phone] LAB[address] Drive (ABNORMAL) Differential, Automated (01/05/2019 5:10 PM EDT) [facility] gist Method Time Signature Neutrophils % 64.4 % [facility] Neutr Abs (ANC) 9.02 (H) 1.70 - [facility] 6.10 [facility] x10(3)/[facility] Lymphocytes % 25.9 % [facility] Lymphocytes Abs 3.6 (H) 0.9 - 3.2 [facility] x10(3)/[facility] LABORATORY Monocytes % 8.9 % [facility] Monocyte Abs 1.2 (H) 0.3 - 0.9 [facility] x10(3)/[facility] LABORATORY Eosinophils % 0.1 % [facility] Eosinophils Abs 0.0 0.0 - 0.4 [facility] x10(3)/[facility] LABORATORY Basophils % 0.2 % [facility] Basophils Abs 0.0 0.0 - 0.1 [facility] x10(3)/[facility] LABORATORY Immature Gran % 0.50 % [facility] Comment: Immature granulocytes(IG's)percentage an d absolute count will include metamyelocytes, myelocytes, and promyelo cytes. Blood smears from CBCs yielding IG's will be scanned manually for concor dance. If this scan disagrees with the automated IG or if promyelocytes are not ed, a manual differential will be performed. Irina Gran Abs 0.07 (H) 0.00 - 0.04 x10(3)/[facility] LABORATORY Specimen Anatomical Collection Method Collection Time Receive d Time (Source) Location / / Volume Laterality Blood specimen 01/05/2019 5:10 PM 019 5:21 (specimen) EDT PM EDT Resulting Agency Comment Spec In Lab Severino Larson MD HEMATOLOGY ORDERABLES Performing Organization Address City/State/ZIP [place] [address] (ABNORMAL) Hemogram (01/05/2019 5:10 PM EDT) Analysis Performed At Patho logist Time Signature WBC 14.0 (H) 4.0 - 9.5 [facility](3[facility] LABORATORY RBC 3.87 (L) 4.00 - [place] 5.21 [facility] x10(6)/[facility] LABORATORY Hemoglobin 11.8 11.7 - [facility] 15.5 gm/dL [facility] LABORATORY Hematocrit 36.1 35.7 - [place] 45.8 % [facility] MCV 93.3 82.6 - [facility] 94.4 [facility] LABORATORY MCH 30.5 27.1 - [facility] 32.0 pg [facility] MCHC 32.7 31.7 - [place] 35.0 gm/dL [facility] Platelets 174 145 - 357 [facility] x10(3)/[facility] LABORATORY RDWSD 44.6 37.0 - [place] 46.0 [facility] LABORATORY RDWCV 13.1 11.5 - [place] 14.1 % [facility] LABORATORY MPV 10.3 7.6 - 12.9 [facility] nRBC % Auto 0.0 % [facility] LABORATORY nRBC Abs Auto 0.000 0.000 - [place] 0.000 [facility] x10(3)/[facility] LABORATORY Specimen Anatomical Collection Method Collection Time Receive d Time (Source) Location / / Volume Laterality Blood specimen 01/05/2019 5:10 PM 019 5:21 (specimen) EDT PM EDT Resulting Agency Comment Spec In Lab Severino Larson MD HEMATOLOGY ORDERABLES Performing Organization Address City/[facility]/ZIP [place] [address] POCT Glucose (01/05/2019 5:09 PM EDT) P athologist Signature POC Glucose 196 65 - 199 [facility] mg/dL [facility] Comment: Supplemental ranges: <140 mg/dL before meals <180 mg/dL all other times of the day Specimen Anatomical Collection Method Collection Time Receive d Time (Source) Location / / Volume Laterality Blood specimen 01/05/2019 5:09 PM 019 5:09 (specimen) EDT PM EDT Ace Henry MD POINT OF CARE TEST ORDERABLE S Performing Organization Address City/State/ZIP [place] [address] (ABNORMAL) BLOOD GAS 2 ARTERIAL (01/05/2019 4:26 PM EDT) Analysis Performed At Patho logist Time Signature pH Art 7.45 7.35 - [facility] 7.45 [facility] pCO2 Art 29 (L) 35 - 45 [facility] mmHg [facility]AT[facility] pO2 Art 128 (H) 85 - 104 [facility] LABORATORY HCO3 Art 19.5 (L) 20.0 - [facility] 26.0 [facility] mmol/L [facility] LABORATORY BE Art -4.5 (L) -3.0 - 3.0 [facility] mmol/L [facility] Hgb Blood Gas 12.7 11.7 - [facility] 15.5 gm/dL [facility] O2HB Art 97.5 (H) 94.0 - [facility] 97.0 % [facility] COHB Art 0.2 % [facility] LABORATORY Comment: Nonsmokers: 0.5-1.5% COHB Smokers: Variable, but usually less than 10% Toxic: 20-30% COHB Lethal: Greater than 60% COHB METHB Art 0.4 <=1.5 % [facility] LABORATORY Na Whole Blood 138 135 - 145 mmol/L [facility] LABORATORY K Whole Blood 4.4 3.5 - 5.0 mmol/L [facility] LABORATORY Comment: Please note: Patients with WBC >100,000 may have falsely elevated Potassium levels. Contact the Clinical Chemistry L aboratory if there are any questions. ICa Whole Blood 1.34 (H) 1.15 - 1.33 mmol/L [facility] LABORATORY Comment: Note: ??Total bilirubin higher than 20 m g/dL may lead to falsely low ionized calcium. CL Whole Blood 109 (H) 98 - 107 mmol/L [facility] LABORATORY Gluc Whole Bld 195 65 - 199 mg/dL [facility] LABORATORY Comment: Diabetes: >=200 mg/dL plus symp toms. Lactate WB 2.8 (H) 0.5 - 2.2 mmol/L [facility] LABORATORY FIO2 Art 40 % [facility] LABORATORY PF Ratio Art 320 [facility] LABORATORY Specimen Anatomical Collection Method Collection Time Receive d Time (Source) Location / / Volume Laterality Blood specimen 01/05/2019 4:26 PM 019 4:26 (specimen) EDT PM EDT Ace Henry MD CHEMISTRY ORDERABLES Performing Organization Address City/[facility]/ZIP Code Phon e Number [address] (ABNORMAL) Phosphorus (01/05/2019 4:15 PM EDT) athologist Signature Phosphorus 1.4 2.5 - 4.5 [facility] ([facility]/dL [facility] Comment: Called by: , Read back by: Tyree Fernandez, Date/Time:01/05/19 17:53. Specimen Anatomical Collection Method Collection Time Receive d Time (Source) Location / / Volume Laterality Blood specimen Venous Draw / 01/05/2019 4:15 PM 2018 4:23 (specimen) Unknown EDT PM EDT Resulting Agency Comment Spec In Lab Severino Larson MD CHEMISTRY ORDERABLES Performing Organization Address City/State/ZIP Code Phon e Number [address] (ABNORMAL) Magnesium (01/05/2019 4:15 PM EDT) P athologist Signature Magnesium 1.25 (H) 0.69 - 1.07 [facility] mmol/L [facility] Comment: result rechecked- Specimen Anatomical Collection Method Collection Time Receive d Time (Source) Location / / Volume Laterality Blood specimen Venous Draw / 01/05/2019 4:15 PM 2018 4:23 (specimen) Unknown EDT PM EDT Resulting Agency Comment Spec In Lab Severino Larson MD CHEMISTRY ORDERABLES Performing Organization Address City/State/ZIP [place] [address] (ABNORMAL) Basic Metabolic Panel (non-fasting) (01/05/2019 4:15 PM EDT) athologist Signature Glucose Lvl 194 65 - 199 [facility] mg/dL [facility] Comment: Diabetes: >=200 mg/dL plus symp toms BUN 16 8 - 18 mg/dL [facility] LABORATORY Creatinine 0.86 0.70 - 1.20 mg/dL [facility] LABORATORY Sodium 136 135 - 145 mmol/L [facility] LABORATORY Potassium 4.7 3.5 - 5.0 mmol/L [facility] LABOR[facility]ORY Comment: Please note: ??Patients with WBC >100,00 0 may have falsely elevated Potassium levels. ??For accurate Potassium quantif ication in these patients send serum separator tube (gold top) for subsequent determinations. ??Contact the Clinical Chemistry Laboratory if there are any qu estions. Chloride 108 (H) 98 - 107 mmol/L [facility] LABORATORY CO2 21 (L) 22 - 31 mmol/L [facility] LABORATORY Anion Gap 7 5 - 15 mmol/L [facility] LABORATORY Calcium 10.1 8.5 - 10.5 mg/dL [facility] LABORATORY Estimated GFR 74 >=60 mL/min/1.73 m?? [facility] LABORATORY Comment: The eGFR was calculated using the CKD-EP I equation. As with all creatinine based estimates of kidney function, eGFR values calculated with the CKD-EPI equation are not accurate in patients wi th acute kidney failure, extremes of body mass or the acutely ill. [email or web address] eGFR 86 >=60 mL/min/1.73 m?? [facility] LABORATORY Comment: The eGFR was calculated using the CKD-EP I equation. As with all creatinine based estimates of kidney function, eGFR values calculated with the CKD-EPI equation are not accurate in patients wi th acute kidney failure, extremes of body mass or the acutely ill. [email or web address] Specimen Anatomical Collection Method Collection Time Receive d Time (Source) Location / / Volume Laterality Blood specimen Venous Draw / 01/05/2019 4:15 PM 2018 4:23 (specimen) Unknown EDT PM EDT Resulting Agency Comment Spec In Lab Severino Larson MD CHEMISTRY ORDERABLES Performing Organization Address City/[facility]/ZIP [facility] Phon e Number [address] POCT Glucose (01/05/2019 4:15 PM EDT) athologist Signature POC Glucose 176 65 - 199 [facility] mg/dL [facility] Comment: Supplemental ranges: <140 mg/dL before meals <180 mg/dL all other times of the day Specimen Anatomical Collection Method Collection Time Receive d Time (Source) Location / / Volume Laterality Blood specimen 01/05/2019 4:15 PM 019 4:15 (specimen) EDT PM EDT Ace Henry MD POINT OF CARE TEST ORDERABLE S Performing Organization Address City/[facility] [place] [address] (ABNORMAL) Troponin (01/05/2019 4:15 PM EDT) athologist Signature Troponin-T 0.25 (H) 0.00 - [facility] ng/mL [facility] Comment: The 99th percentile for Troponin T is le ss than 0.01 ng/mL, any detectable cTnT concentration using this assay should be considered elevated. According to the third universal definit ion of myocardial infarction the following criteria with a clinical prese ntation consistent with acute myocardial ischemia meets the diagnosis for a myocardial infarction (MO). Detection of a rise and/or fall of [...] additional sample may be indicated. Reference: Third Noel Definition of Myocardial Infarction. Journal of the [place] [employer] 2012;60:1581-98 Specimen Anatomical Collection Method Collection Time Receive d Time (Source) Location / / Volume Laterality Blood specimen 01/05/2019 4:15 PM 019 4:23 (specimen) EDT PM EDT Resulting Agency Comment Spec In Lab Ace Herny MD CHEMISTRY ORDERABLES Performing Organization Address City/[facility]/ZIP Code Phon e Number [address] POCT Glucose (01/05/2019 2:52 PM EDT) athologist Signature POC Glucose 198 65 - 199 [facility] mg/dL [facility] Comment: Supplemental ranges: <140 mg/dL before meals <180 mg/dL all other times of the day Specimen Anatomical Collection Method Collection Time Receive d Time (Source) Location / / Volume Laterality Blood specimen 01/05/2019 2:52 PM 019 2:52 (specimen) EDT PM EDT cAe Henry MD POINT OF CARE TEST ORDERABLE S Performing Organization Address City/State/ZIP [place] [address] ECHOCARDIOGRAM COMPLETE W CONTRAST (01/05/2019 1:12 PM EDT) athologist Signature EF 30 [facility] Specimen (Source) Anatomical Location Collection Method / Collectio n Time Received Time / Laterality Volume 01/06/2019 Narrative [facility] - 01/06/2019 8:17 AM EDT Procedure: ?Transthoracic Echocardiogram Patient: ?TARA Ray ?(Age): 1960(58y) Med Rec#: ? [id number] ?Sex: ?F ? Site Loc: ? DH ?Ht / Wt: ??170(cm)/138(kg) Pt. Loc: ?ICU ? BSA: ?2.41 Study Date: ?? 01/05/2019 ?Pt. Type: Inpatient Tape: ? Referring: Hossein Chahal Reading: Juancarlos Leo ([id number]) Reading: Qamar Brooks ([id number]) Air Battle Manager: Albina Logan RUST Diagnosis: *Other cardiomyopathies (I42.8) Rhythm: ? Sinus [...] abnormalities. 5. See remainder of report for nabeela l findings. Findings ? : Study Quality: [...] E-wave Vmax ?0.8 ?m/sec ? MV deceleration [id number] ?msec ? MV A-wave Vmax ?0.9 ?m/sec [...] ? Mid-Inferior ?Akinetic ? Mid-Inferoseptal ?Akinetic ? Eliot-Septal ? Akinetic ? Eliot-Anterior ? Akinetic ? Eliot-Lateral ?Akinetic ? Eliot-Inferior ? Akinetic ? Eliot-Tip ?Akinetic ? This report has been electronically sign ed by: _ Qamar Brooks M.D. ? 01/06/2019 08:17:04 Images reviewed and interpretation [facility] Cardiac Ultrasound Laboratory Procedure Note Qamar Brooks MD - 01/06/2019Format ting of this note might be different from the original. Procedure: Transthoracic Echocardiogram Patient: TARA Ray (Age): (58y) Med Rec#: [id number] Sex: F Site Loc: [facility] Ht / Wt: 170(cm)/138(kg) Pt. Loc: ICU BSA: 2.41 Study Date: 01/05/2019 Pt. Type: Inpatie nt Tape: Referring: Hossein Chahal Reading: Juancarlos Leo ([id number]) Reading: Qamar Brooks ([id number]) Air Battle Manager: Albina Logan RUST Diagnosis: *Other cardiomyopathies (I42.8) Rhythm: Sinus BP: [...] MV E-wave Vmax 0.8 m/sec MV deceleration [id number] msec MV A-wave Vmax 0.9 m/sec MV [...] Hypokinetic Mid-Posterolateral Hypokinetic Mid-Inferior Akinetic Mid-Inferoseptal Akinetic Eliot-Septal Akinetic Eliot-Anterior Akinetic Eliot-Lateral Akinetic Eliot-Inferior Akinetic Eliot-Tip Akinetic This report has been electronically sign ed by: _ Qamar Brooks M.D. 01/06/2019 08:17: 04 Images reviewed and interpretation ver ied [facility] Cardiac Ultrasound Laboratory Hossein Chahal MD ECHO ORDERABLES Performing Organization Address City/State/ZIP Code Phon e Number [facility] SYSTEM (ABNORMAL) POCT Glucose (01/05/2019 12:05 PM EDT) P athologist Signature POC Glucose 269 (H) 65 - 199 [facility] mg/dL [facility] Comment: Supplemental ranges: <140 mg/dL before meals <180 mg/dL all other times of the day Specimen Anatomical Collection Method Collection Time Receive d Time (Source) Location / / Volume Laterality Blood specimen 01/05/2019 12:05 9 (specimen) PM EDT 12:05 PM EDT Ace Henry MD POINT OF CARE TEST ORDERABLE S Performing Organization Address City/State/ZIP Code Phon e Number [address] POCT Glucose (01/05/2019 11:06 AM EDT) P athologist Signature POC Glucose 145 65 - 199 [facility] mg/dL [facility]ORY Comment: Supplemental ranges: <140 mg/dL before meals <180 mg/dL all other times of the day Specimen Anatomical Collection Method Collection Time Receive d Time (Source) Location / / Volume Laterality Blood specimen 01/05/2019 11:06 9 (specimen) AM EDT 11:06 AM EDT Ace Henry MD POINT OF CARE TEST ORDERABLE S Performing Organization Address City/[facility]/ZIP Code Phon e Number [address] Urine culture (01/05/2019 10:35 AM EDT) [facility] Method Time Signature Urine Culture No growth [facility] (Less than [facility] 1,000 [facility] cfu/ml). LABORATORY Specimen (Source) Anatomical Collection Method Collection Time Re ceived Time Location / / Volume Laterality Urine specimen 01/05/2019 10:35 9 obtained via AM EDT 11:41 AM EDT indwelling urinary catheter (specimen) Resulting Agency Comment Spec In Lab My Wilcox MD MICROBIOLOGY - GENERAL ORDER ELINA Performing Organization Address City/[facility]/ZIP [place] [address] (ABNORMAL) Urinalysis Microscopic Exam (01/05/2019 10:35 AM EDT) [facility] Method Time Signature RBC UA 21 (H) 0 - 4 [facility] /HPF [facility] LABORATORY WBC UA >182 (H) 0 - 5 [facility] /HPF [facility] LABORATORY WBCs Clumping Occasional (A) None /HPF [facility] LABORATORY Bacteria UA Few (A) None /HPF [facility] LABORATORY Yeast Lane UA Occasional (A) None /HPF [facility] LABORATORY Squam Epith <1 <=4 /HPF [facility] LABORATORY Hyaline Cast 7 (H) 0 - 2 [facility] UA /LPF [facility] LABORATORY Specimen (Source) Anatomical Collection Method Collection Time Re ceived Time Location / / Volume Laterality Urine specimen 01/05/2019 10:35 9 obtained via AM EDT 10:50 AM EDT indwelling urinary catheter (specimen) Resulting Agency Comment Spec In Lab My Wilcox MD URINE ORDERABLES Performing Organization Address City/State/ZIP [place] [address] (ABNORMAL) Urinalysis with reflex Culture (01/05/2019 10:35 AM EDT) [facility] Method Time Signature Glucose UA Negative Negative [facility] mg/dL [facility] Protein UA 100 (A) Negative [facility] mg/dL [facility] Bilirubin UA Negative Negative [facility] mg/dL [facility] Comment: Clinical correlation required for positi ve Urine Bilirubin results as false positive may occur with some drugs and d rug related products. If a false positive is suspected a serum total bili bailon should be considered if clinically indicated. Urobilinogen UA Normal Normal mg/dL [facility] LABORATORY pH UA 5.0 5.0 - 8.0 [facility] LABORATORY Blood UA Negative Negative mg/dL [facility] Ketones UA Negative Negative mg/dL [facility] Nitrite UA Negative Negative [facility] LABORATORY Leukocytes UA Large (A) Negative [facility] LABORATORY Appearance UA Cloudy (A) Clear [facility] LABORATORY Spec [place] UA >1.035 (H) 1.002 - 1.030 [facility] LABORATORY Color UA Yellow Yellow [facility] LABORATORY Culture Reflexed Yes [facility] LABORATORY Specimen (Source) Anatomical Collection Method Collection Time Re ceived Time Location / / Volume Laterality Urine specimen 01/05/2019 10:35 9 obtained via AM EDT 10:50 AM EDT indwelling urinary catheter (specimen) Resulting Agency Comment Spec In Lab Ace Henry MD URINE ORDERABLES Performing Organization Address City/State/ZIP [place] [address] POCT Glucose (01/05/2019 10:02 AM EDT) P athologist Signature POC Glucose 129 65 - 199 [facility] Comment: Supplemental ranges: <140 mg/dL before meals <180 mg/dL all other times of the day Specimen Anatomical Collection Method Collection Time Receive d Time (Source) Location / / Volume Laterality Blood specimen 01/05/2019 10:02 9 (specimen) AM EDT 10:02 AM EDT Ace eHnry MD POINT OF CARE TEST ORDERABLE S Performing Organization Address City/[facility]/ZIP Code Phon e Number [address] (ABNORMAL) Differential, Automated (01/05/2019 10:00 AM EDT) Patholo gist Method Time Signature Neutrophils % 73.5 % [facility] LABORATORY Neutr Abs (ANC) 14.22 (H) 1.70 - [facility] 6.10 [facility] x10(3)/[facility] Lymphocytes % 17.5 % [facility] LABORATORY Lymphocytes Abs 3.4 (H) 0.9 - 3.2 [facility] x10(3)/[facility] LABORATORY Monocytes % 8.3 % [facility] LABORATORY Monocyte Abs 1.6 (H) 0.3 - 0.9 [facility] x10(3)/[facility] LABORATORY Eosinophils % 0.0 % [facility] LABORATORY Eosinophils Abs 0.0 0.0 - 0.4 [facility] x10(3)/[facility] LABORATORY Basophils % 0.2 % [facility] LABORATORY Basophils Abs 0.0 0.0 - 0.1 [facility] x10(3)/[facility] LABORATORY Immature Gran % 0.50 % [facility]ORY Comment: Immature granulocytes(IG's)percentage an d absolute count will include metamyelocytes, myelocytes, and promyelo cytes. Blood smears from CBCs yielding IG's will be scanned manually for concelly farooq. If this scan disagrees with the automated IG or if promyelocytes are not ed, a manual differential will be performed. Irina Gran Abs 0.10 (H) 0.00 - 0.04 x10(3)/[facility] LABORATORY Specimen Anatomical Collection Method Collection Time Receive d Time (Source) Location / / Volume Laterality Blood specimen Venous Draw / 01/05/2019 10:00 01/06/20 19 (specimen) Unknown AM EDT 10:12 AM EDT Resulting Agency Comment Spec In Lab Severino Larson MD HEMATOLOGY ORDERABLES Performing Organization Address City/State/ZIP [place] [address] (ABNORMAL) Hemogram (01/05/2019 10:00 AM EDT) Analysis Performed At Patho logist Time Signature WBC 19.3 (H) 4.0 - 9.5 [facility](3[facility] LABORATORY RBC 4.25 4.00 - [place] 5.21 [facility] x10(6)/[facility] LABORATORY Hemoglobin 12.6 11.7 - [facility] 15.5 gm/dL [facility] Hematocrit 39.3 35.7 - [facility] 45.8 % [facility] MCV 92.5 82.6 - [facility] 94.4 [facility] LABORATORY MCH 29.6 27.1 - [place] 32.0 pg [facility]AT[facility] MCHC 32.1 31.7 - [facility] 35.0 gm/dL [facility] Platelets 243 145 - 357 [facility] x[facility](3[facility] LABORATORY RDWSD 44.3 37.0 - [facility] 46.0 [facility] LABORATORY RDWCV 13.1 11.5 - [facility] 14.1 % [facility]ORATORY MPV 10.5 7.6 - 12.9 [facility] LABORATORY nRBC % Auto 0.0 % [facility] LABORATORY nRBC Abs Auto 0.000 0.000 - [facility] 0.000 [facility] x10(3)/[facility] LABORATORY Specimen Anatomical Collection Method Collection Time Receive d Time (Source) Location / / Volume Laterality Blood specimen Venous Draw / 01/05/2019 10:00 01/06/20 19 (specimen) Unknown AM EDT 10:12 AM EDT Resulting Agency Comment Spec In Lab Severino Larson MD HEMATOLOGY ORDERABLES Performing Organization Address City/[facility]/ZIP Code Phon e Number [address] Lavender Tube HOLD (01/05/2019 10:00 AM EDT) Patholo gist Method Time Signature Lavender Hold Sample in [facility]. [facility]ORATORY Specimen Anatomical Collection Method Collection Time Receive d Time (Source) Location / / Volume Laterality Blood specimen Venous Draw / 01/05/2019 10:00 01/06/20 19 (specimen) Unknown AM EDT 10:12 AM EDT Severino Larson MD HEMATOLOGY ORDERABLES Performing Organization Address City/[facility]/ZIP Code [place] [address] (ABNORMAL) Basic Metabolic Panel (non-fasting) (01/05/2019 10:00 AM EDT) P athologist Signature Glucose Lvl 144 65 - 199 [facility] mg/dL [facility] Comment: Diabetes: >=200 mg/dL plus symp toms BUN 14 8 - 18 mg/dL [facility] LABORATORY Creatinine 0.89 0.70 - 1.20 mg/dL [facility] LABORATORY Sodium 139 135 - 145 mmol/L [facility] LABORATORY Potassium 4.4 3.5 - 5.0 mmol/L [facility] Comment: Result rechecked. mm Please [...] Chloride 110 (H) 98 - 107 mmol/L [facility] Comment: Result rechecked.01/05/19 10:28 mm Corrected from 110 mMol/L [HI] on 13:07:08 EDT by Leon Borrego CO2 21 (L) 22 - 31 mmol/L [facility]ORATORY Anion Gap 8 5 - 15 mmol/L [facility] LABORATORY Calcium 10.4 8.5 - 10.5 mg/dL [facility] LABORATORY Estimated GFR 71 >=60 mL/min/1.73 m?? [facility] Comment: The eGFR was calculated using the CKD-EP I equation. As with all creatinine based estimates of kidney function, eGFR values calculated with the CKD-EPI equation are not accurate in patients wi th acute kidney failure, extremes of body mass or the acutely ill. [email or web address] CITYnkf eGFR 82 >=60 mL/min/1.73 m?? [facility]ORATORY Comment: The eGFR was calculated using the CKD-EP I equation. As with all creatinine based estimates of kidney function, eGFR values calculated with the CKD-EPI equation are not accurate in patients wi th acute kidney failure, extremes of body mass or the acutely ill. [email or web address]/[facility] [facility] CITYnkf Specimen Anatomical Collection Method Collection Time Receive d Time (Source) Location / / Volume Laterality Blood specimen 01/05/2019 10:00 9 (specimen) AM EDT 12:50 PM EDT Resulting Agency Comment Spec In Lab Ace Henry MD CHEMISTRY ORDERABLES Performing Organization Address City/State/ZIP [place] [address] (ABNORMAL) Troponin (01/05/2019 10:00 AM EDT) athologist Signature Troponin-T 0.30 (H) 0.00 - [place] 0.00 ng/mL [facility] Comment: The 99th percentile for Troponin T is le ss than 0.01 ng/mL, any detectable cTnT concentration using this assay should be considered elevated. According to the third universal definit ion of myocardial infarction the following criteria with a clinical prese ntation consistent with acute myocardial ischemia meets the diagnosis for a myocardial infarction (MO). Detection of a rise and/or fall of [...] additional sample may be indicated. Reference: Third Noel Definition of Myocardial Infarction. Journal of the [employer] 2012;60:1581-98 Specimen Anatomical Collection Method Collection Time Receive d Time (Source) Location / / Volume Laterality Blood specimen 01/05/2019 10:00 9 (specimen) AM EDT 10:11 AM EDT Resulting Agency Comment Spec In Lab Ace Henry MD CHEMISTRY ORDERABLES Performing Organization Address City/State/ZIP Code Phon e [place] [address] (ABNORMAL) Phosphorus (01/05/2019 10:00 AM EDT) P athologist Signature Phosphorus 0.9 2.5 - 4.5 [facility] [place] (Critical) mg/dL [facility] Comment: Called by: NOY, Read back by: Hill zimmerman, Date/Time:01/05/19 10:57. Result rechecked. Specimen Anatomical Collection Method Collection Time Receive d Time (Source) Location / / Volume Laterality Blood specimen 01/05/2019 10:00 9 (specimen) AM EDT 10:11 AM EDT Resulting Agency Comment Spec In Lab Ace Henry MD CHEMISTRY ORDERABLES Performing Organization Address City/[facility]/ZIP Code Phon e Number [address] (ABNORMAL) Magnesium (01/05/2019 10:00 AM EDT) athologist Signature Magnesium 0.68 (L) 0.69 - 1.07 [facility] mmol/L [facility] Specimen Anatomical Collection Method Collection Time Receive d Time (Source) Location / / Volume Laterality Blood specimen 01/05/2019 10:00 9 (specimen) AM EDT 10:11 AM EDT Resulting Agency Comment Spec In Lab Ace Henry MD CHEMISTRY ORDERABLES Performing Organization Address City/[facility]/ZIP Code Phon e Number [address] POCT Glucose (01/05/2019 9:06 AM EDT) athologist Signature POC Glucose 152 65 - 199 [facility] mg/dL [facility] Comment: Supplemental ranges: <140 mg/dL before meals <180 mg/dL all other times of the day Specimen Anatomical Collection Method Collection Time Receive d Time (Source) Location / / Volume Laterality Blood specimen 01/05/2019 9:06 AM 019 9:06 (specimen) EDT AM EDT Ace Henry MD POINT OF CARE TEST ORDERABLE S Performing Organization Address City/[facility]/ZIP Code Phon e Number [address] Coox2 (01/05/2019 8:37 AM EDT) athologist Signature pO2 [place]ox 28 mmHg [facility] Hgb Blood Gas 14.4 11.7 - [facility] 15.5 gm/dL [facility] O2HB Coox 61.2 % [facility] COHB Coox 0.8 % [facility] Comment: Nonsmokers: 0.5-1.5% COHB Smokers: Variable, but usually less than 10% Toxic: 20-30% COHB Lethal: Greater than 60% COHB METHB Coox 0.4 <=1.5 % [facility] Source Coox Mixed Venous [facility] Specimen Anatomical Collection Method Collection Time Receive d Time (Source) Location / / Volume Laterality Blood specimen 01/05/2019 8:37 AM 019 8:37 (specimen) EDT AM EDT Ace Henry MD CHEMISTRY ORDERABLES Performing Organization Address City/State/ZIP [place] [address] (ABNORMAL) BLOOD GAS 2 ARTERIAL (01/05/2019 8:28 AM EDT) Analysis Performed At Patho logist Time Signature pH Art 7.38 7.35 - [facility] 7.45 [facility] pCO2 Art 30 (L) 35 - 45 [facility] mmHg [facility] pO2 Art 130 (H) 85 - 104 [facility] LABORATORY HCO3 Art 17.7 (L) 20.0 - [facility] 26.0 [facility] mmol/L [facility] BE Art -7.3 (L) -3.0 - 3.0 [facility] mmol/L [facility] Hgb Blood Gas 14.1 11.7 - [facility] 15.5 gm/dL [facility] O2HB Art 97.2 (H) 94.0 - [facility] 97.0 % [facility] COHB Art 0.7 % [facility] Comment: Nonsmokers: 0.5-1.5% COHB Smokers: Variable, but usually less than 10% Toxic: 20-30% COHB Lethal: Greater than 60% COHB METHB Art 0.4 <=1.5 % [facility] Na Whole Blood 140 135 - 145 mmol/L [facility] K Whole Blood 4.3 3.5 - 5.0 mmol/L [facility] Comment: Please note: Patients with WBC >100,000 may have falsely elevated Potassium levels. Contact the Clinical Chemistry L aboratory if there are any questions. ICa Whole Blood 1.37 (H) 1.15 - 1.33 mmol/L [facility] Comment: Note: ??Total bilirubin higher than 20 m g/dL may lead to falsely low ionized calcium. CL Whole Blood 109 (H) 98 - 107 mmol/L [facility] Gluc Whole Bld 171 65 - 199 mg/dL [facility] Comment: Diabetes: >=200 mg/dL plus symp toms. Lactate WB 3.0 (H) 0.5 - 2.2 mmol/L [facility] FIO2 Art 50 % [facility] PF Ratio Art 260 [facility] Specimen Anatomical Collection Method Collection Time Receive d Time (Source) Location / / Volume Laterality Blood specimen 01/05/2019 8:28 AM 019 8:28 (specimen) EDT AM EDT Ace Henry MD CHEMISTRY ORDERABLES Performing Organization Address City/[facility] Phon e Number [address] POCT Glucose (01/05/2019 8:10 AM EDT) P athologist Signature POC Glucose 176 65 - 199 [facility] mg/dL [facility] Comment: Supplemental ranges: <140 mg/dL before meals <180 mg/dL all other times of the day Specimen Anatomical Collection Method Collection Time Receive d Time (Source) Location / / Volume Laterality Blood specimen 01/05/2019 8:10 AM 019 8:10 (specimen) EDT AM EDT Ace Henry MD POINT OF CARE TEST ORDERABLE S Performing Organization Address City/[facility]/ZIP [facility] [place] [address] (ABNORMAL) POCT Glucose (01/05/2019 6:46 AM EDT) P athologist Signature POC Glucose 241 (H) 65 - 199 [facility] mg/dL [facility] Comment: Supplemental ranges: <140 mg/dL before meals <180 mg/dL all other times of the day Specimen Anatomical Collection Method Collection Time Receive d Time (Source) Location / / Volume Laterality Blood specimen 01/05/2019 6:46 AM 06/16/2 019 6:46 (specimen) EDT AM EDT Ace Henry MD POINT OF CARE TEST ORDERABLE S Performing Organization Address City/State/ZIP Code Phon e Number [address] (ABNORMAL) POCT Glucose (01/05/2019 5:46 AM EDT) athologist Signature POC Glucose 300 (H) 65 - 199 [facility] mg/dL [facility] Comment: Supplemental ranges: <140 mg/dL before meals <180 mg/dL all other times of the day Specimen Anatomical Collection Method Collection Time Receive d Time (Source) Location / / Volume Laterality Blood specimen 01/05/2019 5:46 AM 019 5:46 (specimen) EDT AM EDT Ace Henry MD POINT OF CARE TEST ORDERABLE S Performing Organization Address City/[facility]/ZIP Code [place] [address] (ABNORMAL) BLOOD GAS 2 ARTERIAL (01/05/2019 5:43 AM EDT) athologist Signature pH Art 7.28 7.35 - [facility] (Critical) 7.45 [facility] Comment: Noted by precision instrument and tool maker. pCO2 Art 37 35 - 45 mmHg [facility] pO2 Art 126 (H) 85 - 104 mmHg [facility] HCO3 Art 16.9 (L) 20.0 - 26.0 mmol/L [facility] BE Art -9.9 (L) -3.0 - 3.0 mmol/L [facility] Hgb Blood Gas 14.1 11.7 - 15.5 gm/dL [facility] O2HB Art 97.1 (H) 94.0 - 97.0 % [facility] COHB Art 0.5 % [facility] Comment: Nonsmokers: 0.5-1.5% COHB Smokers: Variable, but usually less than 10% Toxic: 20-30% COHB Lethal: Greater than 60% COHB METHB Art 0.4 <=1.5 % [facility] Na Whole Blood 140 135 - 145 mmol/L [facility] K Whole Blood 4.5 3.5 - 5.0 mmol/L [facility] Comment: Please note: Patients with WBC >100,000 may have falsely elevated Potassium levels. Contact the Clinical Chemistry L aboratory if there are any questions. ICa Whole Blood 1.34 (H) 1.15 - 1.33 mmol/L [facility] Comment: Note: ??Total bilirubin higher than 20 m g/dL may lead to falsely low ionized calcium. CL Whole Blood 109 (H) 98 - 107 mmol/L [facility] Gluc Whole Bld 269 (H) 65 - 199 mg/dL [facility] Comment: Diabetes: >=200 mg/dL plus symp toms. Lactate WB 4.3 (Critical) 0.5 - 2.2 mmol/L [facility] Comment: Noted by precision instrument and tool maker. FIO2 Art 70 % [facility] PF Ratio Art 180 [facility] Specimen Anatomical Collection Method Collection Time Receive d Time (Source) Location / / Volume Laterality Blood specimen 01/05/2019 5:43 AM 019 5:43 (specimen) EDT AM EDT Ace Henry MD CHEMISTRY ORDERABLES Performing Organization Address City/State/ZIP [place] [address] XR Abdomen 1 view [...] below. ? Electronically signed by: Maciel José [facility] ([phone]), at 01/05/2019 5:09 AM Narrative 01/05/2019 5:09 [...] For questions regarding this report, please contact th e number below. Electronically signed by: Maciel José [facility] ([phone]), at 01/05/2019 5:09 AM Ace Henry MD IMG DX ORDERABLES XR Chest PA [...] below. ? Electronically signed by: Maciel José [facility] ([phone]), at 01/05/2019 5:13 AM Narrative 01/05/2019 5:13 AM EDT EXAMINATION: XR [...] number below. Electronically signed by: Maciel José [facility] ([phone]), at 01/05/2019 5:13 AM Ace Henry MD IMG DX ORDERABLES Coox2 (01/05/2019 4:30 AM EDT) P athologist Signature pO2 Coox 40 mmHg [facility] Hgb Blood Gas 14.2 11.7 - [facility] 15.5 gm/dL [facility] O2HB Coox 70.3 % [facility] COHB Coox 0.5 % [facility] Comment: Nonsmokers: 0.5-1.5% COHB Smokers: Variable, but usually less than 10% Toxic: 20-30% COHB Lethal: Greater than 60% COHB METHB Coox 0.4 <=1.5 % [facility] Source Coox Mixed Venous [facility] Specimen Anatomical Collection Method Collection Time Receive d Time (Source) Location / / Volume Laterality Blood specimen 01/05/2019 4:30 AM 019 4:30 (specimen) EDT AM EDT Ace Henry MD CHEMISTRY ORDERABLES Performing Organization Address City/[facility]/ZIP [place] [address] (ABNORMAL) Troponin (01/05/2019 4:30 AM EDT) athologist Signature Troponin-T 0.32 (H) 0.00 - [place] STUARTCK 0.00 ng/mL [facility] Comment: The 99th percentile for Troponin T is le ss than 0.01 ng/mL, any detectable cTnT concentration using this assay should be considered elevated. According to the third universal definit ion of myocardial infarction the following criteria with a clinical prese ntation consistent with acute myocardial ischemia meets the diagnosis for a myocardial infarction (MO). Detection of a rise and/or fall of [...] additional sample may be indicated. Reference: Third Noel Definition of Myocardial Infarction. Journal of the [place] [employer] 2012;60:1581-98 Specimen Anatomical Collection Method Collection Time Receive d Time (Source) Location / / Volume Laterality Blood specimen 01/05/2019 4:30 AM 019 4:33 (specimen) EDT AM EDT Resulting Agency Comment Spec In Lab Ace Henry MD CHEMISTRY ORDERABLES Performing Organization Address City/[facility]/ZIP [place] [address] (ABNORMAL) POCT Glucose (01/05/2019 3:46 AM EDT) athologist Signature POC Glucose 394 (H) 65 - 199 [facility] mg/dL [facility] Comment: Supplemental ranges: <140 mg/dL before meals <180 mg/dL all other times of the day Specimen Anatomical Collection Method Collection Time Receive d Time (Source) Location / / Volume Laterality Blood specimen 01/05/2019 3:46 AM 019 3:46 (specimen) EDT AM EDT Ace Henry MD POINT OF CARE TEST ORDERABLE S Performing Organization Address City/State/ZIP [place] [address] (ABNORMAL) BLOOD GAS 2 ARTERIAL (01/05/2019 2:39 AM EDT) athologist Signature pH Art 7.18 7.35 - [facility] (Critical) 7.45 [facility] Comment: Noted by precision instrument and tool maker. not Noted by precision instrument and tool maker. Corrected from 7.18 [CRIT] on 01/06/19 7 :33:19 EDT by Viky Fields I. pCO2 Art 37 35 - 45 mmHg [facility] pO2 Art 70 (L) 85 - 104 mmHg [facility] HCO3 Art 13.2 (L) 20.0 - 26.0 mmol/L [facility] BE Art -15.2 (L) -3.0 - 3.0 mmol/L [facility] Hgb Blood Gas 13.4 11.7 - 15.5 gm/dL [facility] O2HB Art 90.5 (L) 94.0 - 97.0 % [facility] COHB Art 0.6 % [facility] Comment: Nonsmokers: 0.5-1.5% COHB Smokers: Variable, but usually less than 10% Toxic: 20-30% COHB Lethal: Greater than 60% COHB METHB Art 0.3 <=1.5 % [facility] Na Whole Blood 137 135 - 145 mmol/L [facility] K Whole Blood 5.7 (H) 3.5 - 5.0 mmol/L [facility] Comment: Please note: Patients with WBC >100,000 may have falsely elevated Potassium levels. Contact the Clinical Chemistry L aboratory if there are any questions. ICa Whole Blood 1.29 1.15 - 1.33 mmol/L [facility] Comment: Note: ??Total bilirubin higher than 20 m g/dL may lead to falsely low ionized calcium. CL Whole Blood 108 (H) 98 - 107 mmol/L [facility] Gluc Whole Bld 461 (H) 65 - 199 mg/dL [facility] Comment: Diabetes: >=200 mg/dL plus symp toms. Lactate WB 5.6 (Critical) 0.5 - 2.2 mmol/L [facility] Comment: Noted by precision instrument and tool maker. not Noted by precision instrument and tool maker. Corrected from 5.6 mMol/L [CRIT] on 12/21 02/07 7:33:19 EDT by Viky Fields I. Specimen Anatomical Collection Method Collection Time Receive d Time (Source) Location / / Volume Laterality Blood specimen 01/05/2019 2:39 AM 019 2:39 (specimen) EDT AM EDT Ace Henry MD CHEMISTRY ORDERABLES Performing Organization Address City/State/ZIP [place] [address] (ABNORMAL) BLOOD GAS 2 ARTERIAL (01/05/2019 1:59 AM EDT) athologist Signature pH Art 7.11 7.35 - [facility] (Critical) 7.45 [facility] Comment: not Noted by instrument operato r. pCO2 Art 55 (H) 35 - 45 mmHg [facility] pO2 Art 74 (L) 85 - 104 mmHg [facility] HCO3 Art 17.1 (L) 20.0 - 26.0 mmol/L [facility] BE Art -12.3 (L) -3.0 - 3.0 mmol/L [facility] Hgb Blood Gas 14.0 11.7 - 15.5 gm/dL [facility] O2HB Art 90.9 (L) 94.0 - 97.0 % [facility] COHB Art 0.5 % [facility] Comment: Nonsmokers: 0.5-1.5% COHB Smokers: Variable, but usually less than 10% Toxic: 20-30% COHB Lethal: Greater than 60% COHB METHB Art 0.0 <=1.5 % [facility] Na Whole Blood 138 135 - 145 mmol/L [facility] K Whole Blood 5.6 (H) 3.5 - 5.0 mmol/L [facility] Comment: Please note: Patients with WBC >100,000 may have falsely elevated Potassium levels. Contact the Clinical Chemistry L aboratory if there are any questions. ICa Whole Blood 1.32 1.15 - 1.33 mmol/L [facility] Comment: Note: ??Total bilirubin higher than 20 m g/dL may lead to falsely low ionized calcium. CL Whole Blood 107 98 - 107 mmol/L [facility] Gluc Whole Bld 519 (Critical) 65 - 199 mg/dL [facility] Comment: not Noted by precision instrument and tool maker. Diabetes: >=200 mg/dL plus symptoms. Lactate WB 4.2 (Critical) 0.5 - 2.2 mmol/L [facility] Comment: not Noted by instrument operato r. Specimen Anatomical Collection Method Collection Time Receive d Time (Source) Location / / Volume Laterality Blood specimen 01/05/2019 1:59 AM 019 1:59 (specimen) EDT AM EDT Ace Henry MD CHEMISTRY ORDERABLES Performing Organization Address City/State/ZIP [place] [address] Blood culture (01/05/2019 1:30 AM EDT) [facility] gist Method Time Signature Blood Culture No growth [facility] at 5 days. [facility] Specimen Anatomical Collection Method Collection Time Receive d Time (Source) Location / / Volume Laterality Blood specimen 01/05/2019 1:30 AM 019 3:15 (specimen) EDT AM EDT Resulting Agency Comment Spec In Lab Morales Watt MD MICROBIOLOGY - BLOOD ORDERAB LES Performing Organization Address City/State/ZIP [place] [address] (ABNORMAL) BLOOD GAS 2 ARTERIAL (01/05/2019 1:21 AM EDT) athologist Signature pH Art 7.18 7.35 - [facility] (Critical) 7.45 [facility] Comment: Noted by precision instrument and tool maker. pCO2 Art 42 35 - 45 mmHg [facility] pO2 Art 106 (H) 85 - 104 mmHg [facility] HCO3 Art 15.3 (L) 20.0 - 26.0 mmol/L [facility] BE Art -13.0 (L) -3.0 - 3.0 mmol/L [facility] Hgb Blood Gas 13.9 11.7 - 15.5 gm/dL [facility] O2HB Art 95.7 94.0 - 97.0 % [facility] COHB Art 0.6 % [facility] Comment: Nonsmokers: 0.5-1.5% COHB Smokers: Variable, but usually less than 10% Toxic: 20-30% COHB Lethal: Greater than 60% COHB METHB Art 0.7 <=1.5 % [facility] Na Whole Blood 137 135 - 145 mmol/L [facility] K Whole Blood 5.1 (H) 3.5 - 5.0 mmol/L [facility] Comment: Please note: Patients with WBC >100,000 may have falsely elevated Potassium levels. Contact the Clinical Chemistry L aboratory if there are any questions. ICa Whole Blood 1.27 1.15 - 1.33 mmol/L [facility] Comment: Note: ??Total bilirubin higher than 20 m g/dL may lead to falsely low ionized calcium. CL Whole Blood 106 98 - 107 mmol/L [facility] Gluc Whole Bld 497 (H) 65 - 199 mg/dL [facility] Comment: Diabetes: >=200 mg/dL plus symp toms. Lactate WB 4.0 (Critical) 0.5 - 2.2 mmol/L [facility] Comment: Noted by precision instrument and tool maker. FIO2 Art 100 % [facility] PF Ratio Art 106 [facility] Specimen Anatomical Collection Method Collection Time Receive d Time (Source) Location / / Volume Laterality Blood specimen 01/05/2019 1:21 AM 019 1:21 (specimen) EDT AM EDT Hossein Chahal MD CHEMISTRY ORDERABLES Performing Organization Address City/State/ZIP [place] [address] (ABNORMAL) POCT Glucose (01/05/2019 12:21 AM EDT) P athologist Signature POC Glucose 541 65 - 199 [facility] (Critical) mg/dL [facility] Comment: Supplemental ranges: <140 mg/dL before meals <180 mg/dL all other times of the day Specimen Anatomical Collection Method Collection Time Receive d Time (Source) Location / / Volume Laterality Blood specimen 01/05/2019 12:21 9 (specimen) AM EDT 12:21 AM EDT Hossein Chahal MD POINT OF CARE TEST ORDERABLE S Performing Organization Address City/State/ZIP [place] [address] XR Chest PA or [...] below. ? Electronically signed by: Maciel José [facility] ([phone]), at 01/05/2019 12:38 AM Narrative 01/05/2019 12:38 [...] interpretation and agree with the findings, Brandi Reeys at 01/05/2019 12:38 AM Thank you for letting us participate in the care of this patient. For questions regarding this report, please contact e number below. Electronically signed by: Maciel José [facility] ([phone]), at 01/05/2019 12:38 AM Hossein Chahal MD IMG DX ORDERABLES (ABNORMAL) POCT Glucose (01/04/2019 10:44 PM EDT) athologist Signature POC Glucose 404 (H) 65 - 199 [facility] mg/dL [facility] Comment: Supplemental ranges: <140 mg/dL before meals <180 mg/dL all other times of the day Specimen Anatomical Collection Method Collection Time Receive d Time (Source) Location / / Volume Laterality Blood specimen 01/04/2019 10:44 9 (specimen) PM EDT 10:44 PM EDT Hossein Chahal MD POINT OF CARE TEST ORDERABLE S Performing Organization Address City/State/ZIP [place] [address] (ABNORMAL) POCT Glucose (01/04/2019 9:42 PM EDT) athologist Signature POC Glucose 405 (H) 65 - 199 [facility] mg/dL [facility] Comment: Supplemental ranges: <140 mg/dL before meals <180 mg/dL all other times of the day Specimen Anatomical Collection Method Collection Time Receive d Time (Source) Location / / Volume Laterality Blood specimen 01/04/2019 9:42 PM 019 9:42 (specimen) EDT PM EDT Hossein Chahal MD POINT OF CARE TEST ORDERABLE S Performing Organization Address City/[facility]/ZIP [place] [address] EKG 12 Lead (01/04/2019 9:29 PM EDT) [facility] Method Time Signature Ventricular rate 93 BPM MUSE SYSTEM Atrial Rate 93 BPM MUSE SYSTEM P-R Interval 206 ms MUSE SYSTEM QRS Duration 150 ms MUSE SYSTEM Q-T Interval 388 ms MUSE SYSTEM QTC Calculated 482 ms MUSE SYSTEM (Bezet) Calculated P [place] 41 degrees MUSE SYSTEM Calculated R [place] -3 degrees MUSE SYSTEM Calculated T [place] -21 degrees MUSE SYSTEM INTERPRETATION Sinus rhythm with a brief run of SVT MUSE SYSTEM Left bundle branch block Abnormal ECG When compared with ECG of 26-SEP-2018 19:33, T wave inversion now evident in Inferior leads Confirmed by MD Sheridan, Kevin ([id number]) on 01/05/2019 11:32:30 AM Specimen Anatomical Collection Method Collection Time Receive d Time (Source) Location / / Volume Laterality 01/04/2019 9:29 PM 9 EDT 11:32 AM EDT Hossein Chahal MD ECG ORDERABLES Performing Organization Address City/[facility] [facility]/ZIP Code Phon e Number MUSE SYSTEM ABORH Recheck Status (01/04/2019 9:26 PM EDT) [facility] Method Time Signature ABORH Type Completed [facility] LABORATORY Specimen Anatomical Collection Method Collection Time Receive d Time (Source) Location / / Volume Laterality Blood specimen 01/04/2019 9:26 PM 019 9:31 (specimen) EDT PM EDT Resulting Agency Comment Spec In Lab Hossein Chahal MD BLOOD BANK ORDERABLES Performing Organization Address City/State/ZIP [place] [address] Antibody screen (01/04/2019 9:26 PM EDT) Patholo gist Method Time Signature Ab Screen Negative [facility] LABORATORY Expires at 01/07/2019 HAILEY ANDERSON [id number] on: [facility] LABORATORY Specimen Anatomical Collection Method Collection Time Receive d Time (Source) Location / / Volume Laterality Blood specimen 01/04/2019 9:26 PM 019 9:31 (specimen) EDT PM EDT Resulting Agency Comment Spec In Lab Hossein Chahal MD BLOOD BANK ORDERABLES Performing Organization Address City/[facility]/ZIP [place] [address] ABO/Rh Typing (01/04/2019 9:26 PM EDT) P athologist Signature ABORh Type O Pos [facility] LABORATORY Specimen Anatomical Collection Method Collection Time Receive d Time (Source) Location / / Volume Laterality Blood specimen 01/04/2019 9:26 PM 019 9:31 (specimen) EDT PM EDT Resulting Agency Comment Spec In Lab Hossein Chahal MD BLOOD BANK ORDERABLES Performing Organization Address City/[facility]/ZIP [place] [address] Phosphorus (01/04/2019 9:25 PM EDT) P athologist Signature Phosphorus 3.2 2.5 - 4.5 [facility] mg/dL [facility]OR[facility] Specimen Anatomical Collection Method Collection Time Receive d Time (Source) Location / / Volume Laterality Blood specimen Venous Draw / 01/04/2019 9:25 PM 2018 9:35 (specimen) Unknown EDT PM EDT Resulting Agency Comment Spec In Lab Marco Rodriguez MD CHEMISTRY ORDERABLES Performing Organization Address City/State/ZIP [place] [address] (ABNORMAL) Magnesium (01/04/2019 9:25 PM EDT) P athologist Signature Magnesium 0.66 (L) 0.69 - 1.07 [facility]/L [facility] Specimen Anatomical Collection Method Collection Time Receive d Time (Source) Location / / Volume Laterality Blood specimen Venous Draw / 01/04/2019 9:25 PM 2018 9:35 (specimen) Unknown EDT PM EDT Resulting Agency Comment Spec In Lab Marco Rodriguez MD CHEMISTRY ORDERABLES Performing Organization Address City/[facility]/ZIP [place] [address] Scan, Peripheral Blood (01/04/2019 9:25 PM EDT) [facility] Method Time Signature Plat Estimate Increased [facility] RBC Morphology Abnormal [facility] Ovalocytes 1-5 /HPF [facility] [place] Cells 1-5 /HPF [facility]OR[facility] Giant Less than 1 /HPF [facility] LABORATORY Specimen Anatomical Collection Method Collection Time Receive d Time (Source) Location / / Volume Laterality Blood specimen 01/04/2019 9:25 PM 019 9:35 (specimen) EDT PM EDT Resulting Agency Comment Spec In Lab Hossein Chahal MD HEMATOLOGY ORDERABLES Performing Organization Address City/[facility]/ZIP [place] [address] (ABNORMAL) D-Dimer, Quantitative (01/04/2019 9:25 PM EDT) [facility] Method Time Signature D-Dimer, Quant 5,972 (H) 0 - 500 [facility] FEU ng/ml [facility] Comment: The D-Dimer assay is used [...] Johnson MD HEMATOLOGY ORDERABLES Performing Organization Address City/[facility]/ZIP [place] [address] TSH (01/04/2019 9:25 PM EDT) athologist Signature TSH 2.90 0.27 - 4.20 [facility] mcIU/mL [facility] LABOR[facility] Specimen Anatomical Collection Method Collection Time Receive d Time (Source) Location / / Volume Laterality Blood specimen Venous Draw / 01/04/2019 9:25 PM 2018 9:35 (specimen) Unknown EDT PM EDT Resulting Agency Comment Spec In Lab Ariane Johnson MD CHEMISTRY ORDERABLES Performing Organization Address City/State/ZIP Code Phon e Number [address] Perez Tube Hold (01/04/2019 9:25 PM EDT) athologist Signature Perez Hold Sample in [facility]. [facility] LABORATORY Specimen Anatomical Collection Method Collection Time Receive d Time (Source) Location / / Volume Laterality Blood specimen Venous Draw / 01/04/2019 9:25 PM 2018 9:36 (specimen) Unknown EDT PM EDT Hossein Chahal MD CHEMISTRY ORDERABLES Performing Organization Address City/State/ZIP Code Phon e Number [address] Gold Tube HOLD (01/04/2019 9:25 PM EDT) athologist Signature Gold Hold Sample in [facility]. [facility]OR[facility] Specimen Anatomical Collection Method Collection Time Receive d Time (Source) Location / / Volume Laterality Blood specimen Venous Draw / 01/04/2019 9:25 PM 2018 9:36 (specimen) Unknown EDT PM EDT Hossein Chahal MD CHEMISTRY ORDERABLES Performing Organization Address City/State/ZIP Code Phon e Number [address] (ABNORMAL) Differential, Automated (01/04/2019 9:25 PM EDT) [facility] Time Signature Neutrophils % 83.8 % [facility] LABORATORY Neutr Abs (ANC) 30.98 (H) 1.70 - [facility] 6.10 [facility] x10(3)/[facility] Lymphocytes % 9.3 % [facility] Lymphocytes Abs 3.4 (H) 0.9 - 3.2 [facility] x10(3)/[facility] LABORATORY Monocytes % 5.9 % [facility] LABORATORY Monocyte Abs 2.2 (H) 0.3 - 0.9 [facility] x10(3)/[facility] LABORATORY Eosinophils % 0.1 % [facility] Eosinophils Abs 0.0 0.0 - 0.4 [facility] x10(3)/[facility] LABORATORY Basophils % 0.3 % [facility] Basophils Abs 0.1 0.0 - 0.1 [facility] x10(3)/[facility] LABORATORY Immature Gran % 0.60 % [facility] LABORATORY Comment: Immature granulocytes(IG's)percentage an d absolute count will include metamyelocytes, myelocytes, and promyelo cytes. Blood smears from CBCs yielding IG's will be scanned manually for concor dance. If this scan disagrees with the automated IG or if promyelocytes are not ed, a manual differential will be performed. Irina Gran Abs 0.21 (H) 0.00 - 0.04 x10(3)/[facility] LABORATORY Specimen Anatomical Collection Method Collection Time Receive d Time (Source) Location / / Volume Laterality Blood specimen 01/04/2019 9:25 PM 019 9:35 (specimen) EDT PM EDT Resulting Agency Comment Spec In Lab Hossein Chahal MD HEMATOLOGY ORDERABLES Performing Organization Address City/State/ZIP [place] [address] (ABNORMAL) Hemogram (01/04/2019 9:25 PM EDT) P athologist Signature WBC 37.0 4.0 - 9.5 [facility] (Critical) x10(3)/[facility] LABORATORY Comment: This result has been called to MARTHA IRENE IN by Ibis Johnson on 01 04 2019 at 2216, and has been read back. RBC 4.83 4.00 - 5.21 x10(6)/[facility] LABORATORY Hemoglobin 14.6 11.7 - 15.5 gm/dL [facility] LABORATORY Hematocrit 44.2 35.7 - 45.8 % [facility]OR[facility] MCV 91.5 82.6 - 94.4 fL [facility] MCH 30.2 27.1 - 32.0 pg [facility] MCHC 33.0 31.7 - 35.0 gm/dL [facility] LABORATORY Platelets 463 (H) 145 - 357 x10(3)/[facility] LABORATORY RDWSD 42.6 37.0 - 46.0 fL [facility] LABORATORY RDWCV 12.7 11.5 - 14.1 % [facility] LABORATORY MPV 10.6 7.6 - 12.9 fL [facility] LABORATORY nRBC % Auto 0.0 % [facility] LABORATORY nRBC Abs Auto 0.000 0.000 - 0.000 x10(3)/[facility] LABORATORY Specimen Anatomical Collection Method Collection Time Receive d Time (Source) Location / / Volume Laterality Blood specimen 01/04/2019 9:25 PM 019 9:35 (specimen) EDT PM EDT Resulting Agency Comment Spec In Lab Hossein Chahal MD HEMATOLOGY ORDERABLES Performing Organization Address City/State/ZIP [place] [address] (ABNORMAL) Troponin (01/04/2019 9:25 PM EDT) athologist Signature Troponin-T 0.16 (H) 0.00 - [facility] 0.00 ng/mL [facility] Comment: Called by: josee, Read back [...] meets the diagnosis for a myocardial infarction (MO). Detection of a rise and/or fall of [...] additional sample may be indicated. Reference: Third Noel Definition of Myocardial Infarction. Journal of the [place] [employer] 2012;60:1581-98 Specimen Anatomical Collection Method Collection Time Receive d Time (Source) Location / / Volume Laterality Blood specimen 01/04/2019 9:25 PM 019 9:35 (specimen) EDT PM EDT Resulting Agency Comment Spec In Lab Hossein Chahal MD CHEMISTRY ORDERABLES Performing Organization Address City/[facility]/ZIP [place] [address] APTT (01/04/2019 9:25 PM EDT) P athologist Signature PTT 26 25 - 37 sec [facility] Comment: The PTT is NOT appropriate [...] Chahal MD HEMATOLOGY ORDERABLES Performing Organization Address City/[facility]/ZIP [place] [address] Prothrombin Time (01/04/2019 9:25 PM EDT) athologist Signature PT 12.2 9.4 - 12.5 [facility] LABORATORY INR 1.1 [facility] Comment: An INR <2.0 [...] Chahal MD HEMATOLOGY ORDERABLES Performing Organization Address City/[facility]/ZIP [place] [address] Lipase (01/04/2019 9:25 PM EDT) athologist Signature Lipase 30 0 - 60 [facility] unit/L [facility]OR[facility] Specimen Anatomical Collection Method Collection Time Receive d Time (Source) Location / / Volume Laterality Blood specimen 01/04/2019 9:25 PM 019 9:35 (specimen) EDT PM EDT Resulting Agency Comment Spec In Lab Hossein Chahal MD CHEMISTRY ORDERABLES Performing Organization Address City/[facility]/ZIP [place] [address] (ABNORMAL) Hepatic Function Panel (01/04/2019 9:25 PM EDT) athologist Signature Total Protein 7.9 6.1 - 8.0 [facility] Albumin 4.7 3.2 - 5.2 [facility] gm/dL [facility] AST 37 (H) 0 - 30 [facility] unit/L [facility] ALT 30 0 - 30 [facility] unit/L [facility] Alk Phos 129 (H) 40 - 104 [facility] unit/L [facility] Total 1.1 0.2 - 1.3 [facility] Bilirubin mg/dL [facility] Bili, Direct 0.3 0.0 - 0.3 [facility] mg[facility] Specimen Anatomical Collection Method Collection Time Receive d Time (Source) Location / / Volume Laterality Blood specimen 01/04/2019 9:25 PM 019 9:35 (specimen) EDT PM EDT Resulting Agency Comment Spec In Lab Hossein Chahal MD CHEMISTRY ORDERABLES Performing Organization Address City/State/ZIP [place] [address] (ABNORMAL) Basic Metabolic Panel (non-fasting) (01/04/2019 9:25 PM EDT) P athologist Signature Glucose Lvl 453 (H) 65 - 199 [facility] mg/dL [facility] Comment: Diabetes: >=200 mg/dL plus symp toms BUN 14 8 - 18 mg/dL [facility] LABORATORY Creatinine 0.75 0.70 - 1.20 mg/dL [facility] LABOR[facility] Sodium 132 (L) 135 - 145 mmol/L [facility] Potassium 6.3 (Critical) 3.5 - 5.0 mmol/L [facility] Comment: Called by: jose, Read back by: Genevieve serra, Date/Time:01/04/19 22:23. Please note: ??Patients with WBC >100,00 0 may have falsely elevated Potassium levels. ??For accurate Potassium quantif ication in these patients send serum separator tube (gold top) for subsequent determinations. ??Contact the Clinical Chemistry Laboratory if there are any qu estions. Chloride 100 98 - 107 mmol/L [facility] CO2 16 (L) 22 - 31 mmol/L [facility] Anion Gap 16 (H) 5 - 15 mmol/L [facility]OR[facility] Calcium 10.5 8.5 - 10.5 mg/dL [facility] Estimated GFR 87 >=60 mL/min/1.73 m?? [facility] Comment: The eGFR was calculated using the CKD-EP I equation. As with all creatinine based estimates of kidney function, eGFR values calculated with the CKD-EPI equation are not accurate in patients wi th acute kidney failure, extremes of body mass or the acutely ill. http://Code[employer]/[facility] OK[facility] CITYnkf eGFR 101 >=60 mL/min/1.73 m?? [facility] Comment: The eGFR was calculated using the CKD-EP I equation. As with all creatinine based estimates of kidney function, eGFR values calculated with the CKD-EPI equation are not accurate in patients wi th acute kidney failure, extremes of body mass or the acutely ill. http://[employer]/[facility] OKLAH[place] CITYnkf Specimen Anatomical Collection Method Collection Time Receive d Time (Source) Location / / Volume Laterality Blood specimen 01/04/2019 9:25 PM 019 9:35 (specimen) EDT PM EDT Resulting Agency Comment Spec In Lab Hossein Chahal MD CHEMISTRY ORDERABLES Performing Organization Address City/State/ZIP [place] [address] (ABNORMAL) BLOOD GAS 2 ARTERIAL (01/04/2019 9:24 PM EDT) Analysis Performed At Patho logist Time Signature pH Art 7.31 (L) 7.35 - [facility] 7.45 [facility] pCO2 Art 34 (L) 35 - 45 [facility] mmHg [facility] pO2 Art 188 (H) 85 - 104 [facility] mmHg [facility] HCO3 Art 16.9 (L) 20.0 - [facility] 26.0 [facility] mmol/L [facility] BE Art -9.3 (L) -3.0 - 3.0 [facility] mmol/L [facility] Hgb Blood Gas 15.5 11.7 - [facility] 15.5 gm/dL [facility] O2HB Art 97.8 (H) 94.0 - [facility] 97.0 % [facility] COHB Art 0.6 % [facility] Comment: Nonsmokers: 0.5-1.5% COHB Smokers: Variable, but usually less than 10% Toxic: 20-30% COHB Lethal: Greater than 60% COHB METHB Art 0.4 <=1.5 % [facility]OR[facility] Na Whole Blood 135 135 - 145 mmol/L [facility] K Whole Blood 6.1 (Critical) 3.5 - 5.0 mmol/L [facility] Comment: Not Noted by precision instrument and tool maker. Please note: Patients with WBC >100,000 may have falsely elevated Potassium levels. Contact the Clinical Chemistry L aboratory if there are any questions. ICa Whole Blood 1.32 1.15 - 1.33 mmol/L [facility] Comment: Note: ??Total bilirubin higher than 20 m g/dL may lead to falsely low ionized calcium. CL Whole Blood 101 98 - 107 mmol/L [facility] Gluc Whole Bld 448 (H) 65 - 199 mg/dL [facility] Comment: Diabetes: >=200 mg/dL plus symp toms. Lactate WB 3.5 (H) 0.5 - 2.2 mmol/L [facility] Specimen Anatomical Collection Method Collection Time Receive d Time (Source) Location / / Volume Laterality Blood specimen 01/04/2019 9:24 PM 019 9:24 (specimen) EDT PM EDT Hossein Chahal MD CHEMISTRY ORDERABLES Performing Organization Address City/State/ZIP [place] [address] documented in this encounter [...] Given 01/12/2019 9:22 PM EDT 25 mg carvedilol (COREG) tablet 3.125 mg Given 01/15/2019 8:02 AM EDT 3.125 mg 3.125 mg, Oral, 2 TIMES DAILY WITH MEALS, First dose on 01/12/19 at 0830, Until Discontinued, Routine Given 01/14/2019 [...] 3 mg, Oral, NIGHTLY, First dose on 01/08/19 at 2245, Until Discontinued, Routine Given 01/13/2019 9:18 PM EDT 3 mg Given 01/12/2019 9:22 PM EDT 3 mg oxyCODONE (ROXICODONE) immediate release tablet Given 01/15/2019 1:15 AM EDT 5 mg 5 mg 5 mg, Oral, EVERY 4 HOURS PRN, Starting on 01/11/19 at 1036, Until 01/15/19 at 1549, Pain, For pain from -05/01, Routine Given 01/14/2019 8:14 AM EDT 5 mg Given 01/13/2019 10:30 PM EDT 5 mg spironolactone (ALDACTONE) tablet 25 mg Given 01/15/2019 8:05 AM EDT 25 mg 25 mg, Oral, DAILY, First dose on 01/12/19 at 0900, Until Discontinued, Routine Given 01/14/2019 [...] shown in EDT. Scheduled Medication Order 01/13/2019 01/14/2019 01/15/2019 acetaminophen (Tylenol) (32.02 mg/mL) oral liquid 1,00 0 mg(Linked Group 1) 0537 (See Alternative - Provider: Kurt Starkey RN)1345 (Given - Provider: Britt Hall RN)2117 (Not Given - Provider: Kurt Starkey RN - Reason: Patient/family refused) 0519 (Given - Provider: Kurt Starkey RN)1409 (Given - Provider: Britt Hall RN)2109 (Given [...] RN)1345 (See Alternative - Provider: Britt Hall RN)211 (See Alternative - Provider: Kurt Starkey RN) 0519 (See Alternative - Provider: Kurt Starkey RN)140 (See Alternative - Provider: Britt Hall RN)2109 [...] RN)1345 (See Alternative - Provider: Britt Hall RN)2117 (See Alternative - Provider: Kurt Starkey RN) 0519 (See Alternative - Provider: Kurt Starkey RN)140 (See Alternative - Provider: Britt Hall RN)2109 [...] on Sun01/12/19 at 2100, Until Discontinued, Routine carvedilol (COREG) tablet 3.125 mg 0832 (Given - Provi elise: Britt Hall RN)1627 (Given - Provider: Britt Hall RN) 0811 (Given - Provider: Britt Hall RN)1641 (Given - Provider: Britt Hall RN) 0802 (Given - Provider: Padmini Andrews RN) 3.125 mg, Oral, 2 TIMES DAILY WITH MEALS , First dose on Sun01/12/19 at 0830, Until Discontinued, Routine ceFEPime (MAXIPIME) [...] First d ose (after last reorder) on Sun01/12/19 at 2215, Until Discontinued, Administer over 30 Minutes, Indication for (Active or Suspected): GI/Intra-abdominal 2237 (New Bag - Provider: Kurt church RN)2310 (Stopped - Provider: Kurt Starkey RN) gabapentin (NEURONTIN) capsule 100 mg (CANCELED) 1141 (Given - Provider: Britt Hall RN)1410 (Given - Provider: Britt Hall RN)2117 (Given - Provider: Kurt Starkey RN) 0811 (Given - Provider: Britt Hall RN) 100 mg, Oral, 3 TIMES DAILY, First dose on Sun01/13/19 at 1100, Until Discontinued, Routine gabapentin (NEURONTIN) capsule 300 mg 14 10 (Given - Provider: Britt Hall RN)2057 (Given - Provider: Kurt Starkey, BRYAN) 0805 (Given - Provider: Padmini Andrews, RN) 300 mg, Oral, 3 TIMES DAILY, First dose (after last modification) on Sun01/14/19 at 1500, Until Discontinued, Routine heparin (Porcine) subcutaneous injection 5,000 Units 0 538 (Given - Provider: Kurt Starkey RN)1346 (Given - Provider: Britt Hall RN)2122 (Given - Provider: Kurt Starkey RN) 0519 (Given - Provider: Kurt Starkey , BRYAN)1410 (Given - Provider: Britt Hall RN)2110 (Given - Provider: Kurt Starkey, BRYAN) 0631 (Given - Provider: Kurt Starkey , BRYAN) 5,000 Units, Subcutaneous, EVERY 8 HOURS SCHEDULED, [...] insulin lispro (HumaLOG) VIAL injection 3-12 Units(Stacey jean Group 2) 1143 (Given - Provider: Britt Hall RN)1631 (Given - Provider: Britt Hall RN) 0650 (Given - Provider: Kurt Starkey, RN)1204 (Given - Provider: Britt Hall RN)1641 (Given - Provider: Britt Hall RN) 0649 (Given - Provider: Kurt Starkey, RN)1123 (Given - Provider: Padmini nAdrews, BRYAN) 3-12 Units, Subcutaneous, 3 TIMES DAILY [...] 5 mg 1141 (Given - Provider: Britt Hall RN) 0810 (Given - Provider: Britt Hall RN) 0805 (Given - Provider: Padmini Andrews, BRYAN) 5 mg, Oral, DAILY, First dose on 12/22 at 1045, Until Discontinued, Routine magnesium sulfate 1g in dextrose 5% 100mL (COMPLETED) 1140 (New Bag - Provider: Britt Hall RN)1240 (Stopped - Provider: Britt Hall RN)1247 (New Bag - Provider: Britt Hall, BRYAN)1347 (Stopped - Provider: Britt Hall, BRYAN) 1 g, Intravenous, EVERY 2 HOURS, 2 [...] (COMPLETED) 0802 (Given - Provider: Padmini Andrews, RN )1007 (Given - Provider: Padmini Andrews RN) [...] tablet 25 mg 0832 (Given - Provider: Britt Hall RN) 0814 (Given - Provider: Britt Hall RN) 0805 (Given - Provider: Padmini Andrews RN) 25 mg, Oral, DAILY, First dose on Sun at 0900, Until Discontinued, Routine traZODone (DESYREL) tablet 50 mg 2116 (Given - Provider: Janeth Starkey, BRYAN) 2057 (Given - Provider: Kurt Starkey, BRYAN) 50 mg, Oral, NIGHTLY, First dose on Sun01/12/19 at 2100, Until Discontinued, Routine PRN Medication [...] EVERY 30 MIN PRN, Start ing on 01/13/19 at 1031, Until Sun01/15/19 at 1549, Low [...] but patient refused)0447 (Given - Provider: Kurt Starkey RN) 2 mg, Oral, EVERY 6 HOURS PRN, Starting on Sun01/12/19 at 1303, Until Sun01/15/19 at 1549, Agitation, Routine ipratropium-albuterol (DUONEB) 0.5 mg-3 mg(2.5 mg base)/3 mL nebulizer solution 3 mL 1238 (Given - Provider: Britt Hall RN) 0251 (Given - Provider: Kurt Starkey, BRYAN) 3 mL, Nebulization, 4 TIMES DAILY PRN, S tarting on 01/13/19 at 1200, Until Sun01/15/19 at 1549, Wheezing, Routine loperamide (IMODIUM) capsule 2 mg 1157 (Given - Provider: Britt Hall RN) 2 mg, Oral, 4 TIMES DAILY PRN, [...] or Regular (not diet) soda OR If EXECUTIVE VICE PRESIDENT OF SALES O, give 15 gram glucose 40% oral [...]
Routine documented in this encounter Care Teams Regulatory Compliance Director Relationship Specialty Start Date End Date Albert Zuleta MD PCP - General Family Medicine 01/17/17 10/26/21 [address] [place] [address] documented as of this encounter
--- OUTSIDE RECORDS SUMMARY | 2022-02-08 01:56 | XMS_ITS | Encounter Summary ---
:1960 Author Organization [facility] [place] [address] Care Team Providers Name Role Phone Albert Zuleta MD Primary Care Provider Encounter Details Date Type Department Care Team Description 12/31/2018 Office Visit Urology at [facility] Alexandru Akers, Sarcoidosis of lung; [facility] [place] [address] NEPHROLOGY DEPT. [phone] [place], [place] [address] Social History Tobacco Use Types [...] Time Taken Comments Blood Pressure 138/67 12/31/2018 4:31 PM EDT Pulse 73 12/31/2018 4:31 PM EDT Temperature - - Respiratory Rate - - Oxygen Saturation - - Inhaled Oxygen Concentration - - Weight - - Height - - Body Mass Index - - documented in this encounter Progress Notes Alexandru Akers MD - 12/31/2018 5:00 PM EDT Images from the original note were not included. 58 y/o woman seen in multidisciplinary stone clinic at the request of for nephrolithiasis The patient has mixed calcium oxalate and phosphate stones with a large stone burden and complication of obstruction and urosepsis, her first stone episode was in 1999 which was treated by lithotrypsy,in March of last year an episode of stone obstruction, in April, required operative removal and stenting, urosepsis this September, large stone burden removed in October of this year 09/26/18 Kidney Stone Analysis ?? Source: ?Right Renal ?? 1st Constituent: ? 60% Calcium phosphate (apatite) ?? 2nd Constituent: ? 20% Magnesium ammonium phosphate (struvite) ?? 3rd Constituent: ? 10% Calcium oxalate dihydrate ?? Comment ?10% Calcium carbonate 11/07/18 Kidney Stone Analysis ?? Source: ?Left Renal ?? 1st Constituent: ? 60% Calcium phosphate (apatite) ?? 2nd Constituent: ? 30% Calcium oxalate dihydrate ?? 3rd Constituent: ? 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 amitriptyline (ELAVIL) 25 mg Tablet, Take 25 mg by mouth nightly., Disp: , Rfl: ??? CANNABIDIOL, CBD, EXTRACT ORAL, Take by mouth as needed., Disp: , Rfl: ??? ACYCLOVIR ORAL, Take by mouth as needed., Disp: , Rfl: ??? nitroGLYcerin (NITROSTAT) 0.4 mg Tablet, Sublingual, Place 0.4 mg under the tongue every 5 minutes as needed for Chest pain., Disp: , Rfl: ??? ibuprofen (ADVIL;MOTRIN) 200 mg Tablet, Take 800 mg by mouth every 6 hours as needed for Pain., Disp: , Rfl: ??? lactobacillus rhamnosus, GG, [...] 2 times daily., Disp: , Rfl: ??? acetaminophen (TYLENOL) 325 mg Tablet, Take 2 tablets by mouth every 6 hours., Disp: 30 tablet, Rfl: 1 ??? aspirin 81 mg Tablet, Chewable, Take 81 mg by mouth daily., Disp: 30 tablet, Rfl: 3 ??? levalbuterol (XOPENEX HFA) 45 mcg/actuation HFA Aerosol Inhaler, INHALE TWO PUFFS BY MOUTH EVERY4 TO 6 HOURS NEEDED, Disp: , Rfl: 3 ??? INCRUSE ELLIPTA 62.5 mcg/actuation Disk with Device, INHALE ONE PUFF BY MOUTH EVERY DAY, Disp: ,Rfl: 5 ??? glipiZIDE-metFORMIN (METAGLIP) 5-500 mg Tablet, TAKE TWO TABLETS BY MOUTH TWICE A DAY, Disp: , Rfl: 3 ??? loratadine (CLARITIN) 10 mg [...] MOUTH DAILY, Disp: , Rfl: 3 ??? magnesium oxide (MAG-OX) 400 mg (241.3 mg magnesium) Tablet, TAKE ONE TABLET BY MOUTH TWICE A DAY, Disp: , Rfl: 1 Allergies Allergen Reactions ??? Anafranil [Clomipramine] give [...] ??? Sulfa (Sulfonamide Antibiotics) Hives Physical exam: Most Recent Vitals: 12/31/18 1631 BP: 138/67 Pulse: 73 morbidly obese Normal color No lymphadenopathy detected No goiter detected Lungs clears Heart regular rhythm No costophrenic angle tenderness Abdomen soft, non tender, normal bowel sounds, umbilical hernia, pannus Limbs no dependant edema Labs: Results for BLOSSOM PACHECO MAKENNA ( ) as of 01/02/2019 17:23 Ref. Range 11/07/2018 08:57 Calcium Latest Ref Range: 8.5 - 10.5 mg/dL 11.6 (H) ICA serum Latest Ref Range: 1.15 - 1.33 mmol/L 1.42 (H) 25-OH Vit D Total Latest Ref Range: 30 - 100 ng/mL 32 PTH Latest Ref Range: 15 - 65 pg/mL 42 ABORh Type Unknown O Pos AB Screen Interp Unknown Negative Expires at 2359 on: Unknown 11/10/2018 ABORH Type Recheck Unknown Completed Renal ultrasound: A/P: Calcium phosphate/ oxalate nephrolithiasis with large stone burden and risk factor hypercalciuria and high urine oxalate excretion, the patient is doing well on volume The patient has a history of sarcoidosis involving lungs and skin with high calcium levels in the 12-13 range, previous treated with Prednisone, a review of her chart reveals that on 11/07/18 the patient also had a normal PTH level with mildly elevated calcium level suggesting primaryhyperparathyroidism Will obtain labs with Ca, P, 25OH vitamin D, 1,25OH vitamin D levels to clarify bhavya of hypercalcemia and hypercalciuria, if consistent with sarcoidosis would treat sarcoid, if consistent with HPTH would treat this condition, otherwise would use a thiazide to reduce urine calcium excretion Stone risk factors were discussed, patient was referred to the gas substation operator to discuss low oxalate diet, recommended salt restriction Unfortunately no labs were drawn by r=the end of the day, will follow up documented in this encounter Plan of Treatment Upcoming Encounters Date Type Specialty Care Team Description 03/15/2022 Office Visit Neurology Ryann Barfield APRN [facility] [address] [place], [place] [address] 03/23/2022 Appointment Radiology Hailey Mcclendon MD [facility] [address] [place] [address] 03/23/2022 Laboratory Appointment Lab 03/23/2022 Office Visit Gastroenterology Hailey Mcclendon MD [facility] [place] [address] 05/23/2022 Procedure visit Maxillofacial Surgery Corby Montes MD [facility] [address] [place] [address] Scheduled Orders Name Type Priority Associated Diagnoses Order S chedule Calcium Lab Routine Hypercalcemia Expected: 12/21 (Approximate), Expires: 01/01/2020 Vitamin D, 25-Hydroxy Lab Routine Hypercalcemia Expec tacos: 12/31/2018 (Approximate), Expires: 01/01/2020 documented as of this encounter Results 1,25-dihydroxycholecalciferol (09/25/2019 10:07 AM EST) athologist Signature Vit D 1,25 37 18 - 78 HAILEY BEANCOCK pg/mL [facility] Comment: ADDITIONAL INFORMATIO N This test was developed and its performa nce characteristics determined by [facility] in a manner co nsistent with CLIA requirements. This test has not been davis ared or approved by the U.S. Food and Drug Administration. Test Performed by: [place] [address] Inside Sales Agent: Jose Maria Good M.D. Ph. D.; CLIA# [id number] Specimen Anatomical Collection Method Collection Time Receive d Time (Source) Location / / Volume Laterality Blood specimen 09/25/2019 10:07 0 1:25 (specimen) AM EST PM EST Resulting Agency Comment Spec In Lab Alexandru Akers MD CHEMISTRY ORDERABLES Performing Organization Address City/[facility]/ZIP Code Phon e Number [address] Phosphorus (09/25/2019 10:07 AM EST) athologist Signature Phosphorus 3.7 2.5 - 4.5 HAILEY BEANCOCK mg/dL [facility] Specimen Anatomical Collection Method Collection Time Receive d Time (Source) Location / / Volume Laterality Blood specimen 09/25/2019 10:07 0 (specimen) AM EST 10:25 AM EST Resulting Agency Comment Spec In Lab Alexandru Akers MD CHEMISTRY ORDERABLES Performing Organization Address City/[facility]/RUST Code Phon e Number [facility] [place] [address] documented in this encounter Visit Diagnoses Diagnosis Sarcoidosis of lung Sarcoidosis Hypercalcemia documented in this encounter Care Teams Coffee Machine Technician Relationship Specialty Start Date End Date Albert Zuleta MD PCP - General Family Medicine 01/17/17 10/26/21 [address] [place] [address] documented as of this encounter
--- OUTSIDE RECORDS SUMMARY | 2022-02-08 01:56 | XMS_ITS | Encounter Summary ---
:1960 Author Organization [facility] Address [facility] [place] [address] Care Team Providers Name Role Phone Albert Zuleta MD Primary Care Provider Reason for Visit Diagnostic Test (Routine) - Closed Specialty Diagnoses / Procedures Referred By Contact Refer red To Contact Radiology Diagnoses Hyperparathyroidism, primary Emily Mcmahon MD [facility] Rad Nuclear Med Procedures NM Parathyroid w Spect CT & Thyroid Imaging ([place]) [facility] [place] [address] [place] [address] Referral ID Status Reason Start Date Expiration Date Visits V isits Requested Authorized [id number] Closed Specialty 10/15/2018 10/15/2019 1 1 Service Requested Encounter Details Date Type Department Care Team Description 11/28/2018 Hospital Encounter Nuclear Medicine at Jeromy Mcmahon MD [facility] [place] [address] GENERAL SURGERY [phone] [place], [place] [address] (Wo rk) Social History Tobacco [...] 03/15/2022 Office Visit Neurology Ryann Barfield, [facility] [place] [place] [address] 03/23/2022 Appointment Radiology Hailey Mcclendon MD [facility] [address] [place] [address] 03/23/2022 Laboratory Appointment Lab 03/23/2022 Office Visit Gastroenterology Hailey Mcclendon MD [facility] [place] [address] 05/23/2022 Procedure visit Maxillofacial Surgery Corby Montes MD [facility] [address] [place] [address] [...] For questions regarding this report, please contact [facility] number below. ? Narrative 11/28/2018 4:06 PM EDT EXAMINATION: NM [...] e number below. Emily Mcmahon MD IMG [place] ORDERABLES documented in this encounter Visit Diagnoses Not on filedocumented in this encounter Care Teams Neon Sign Installer Relationship Specialty Start Date End Date Albert Zuleta MD PCP - General Family Medicine 01/17/17 10/26/21 [address] [place] [address] documented as of this encounter
--- OUTSIDE RECORDS SUMMARY | 2022-02-08 01:57 | XMS_ITS | Encounter Summary ---
:1960 Author Organization [facility] [address] Care Team Providers Name Role Phone Albert Zuleta MD Primary Care Provider Encounter Details Date Type Department Care Team Description 11/24/2018 Telephone Urology Stephen Fernandez MD [facility] [place] [address] UROLOGY DEPT [phone] [place], [place] [address] (Wo rk) Social History Tobacco [...] Telephone Encounter - Stephen Fernandez MD - 11/24/2018 11:56 AM EDT Spoke with patient regarding recent urine culture: Lab Results Component Value Date URINECULTURE (A) 11/19/2018 50,000-99,000 cfu/ml Keira albicans 10,000-49,000 cfu/ml mixed Gram Negative organisms Output of blood increased over last few days since ureteral stent removal. Not having any pain or increase frequency. Given recent instrumentation and hematuria will prescribe 7 day course of fluconazole 200mg daily to [facility]. Plan confirmed with patient. documented in this encounter Plan of Treatment Upcoming Encounters Date Type Specialty Care Team Description 03/15/2022 Office Visit Neurology Ryann Barfield, [facility] [address] [place] [address] 03/23/2022 Appointment Radiology Hailey Mcclendon MD [facility] [address] [place] [address] 03/23/2022 Laboratory Appointment Lab 03/23/2022 Office Visit Gastroenterology Hailey Mcclendon MD [facility] [address] [place] [address] 05/23/2022 Procedure visit Maxillofacial Surgery Corby Montes MD [facility] [address] [place] [address] documented as of this encounter Visit Diagnoses Not on filedocumented in this encounter Care Teams Slurry Mixer Relationship Specialty Start Date End Date Albert Zuleta MD PCP - General Family Medicine 01/17/17 10/26/21 [address] [place] [address] documented as of this encounter
--- OUTSIDE RECORDS SUMMARY | 2022-02-08 01:57 | XMS_ITS | Encounter Summary ---
:1960 Author Organization [facility] Address [facility] [place] [address] Care Team Providers Name Role Phone Albert Zuleta MD Primary Care Provider Encounter Details Date Type Department Care Team Description 10/11/2018 Orders Only Infectious Disease at [facility] Encounter for long-term (current) use of antibiotics; [facility] MD Hermilo Bacteremia; [facility] Rec urrent UTI (urinary tract infection) [place] [address] INFECTIOUS DISEASE [phone] [place], [place] [address] Social History Tobacco Use Types [...] [facility] [address] [place], [place] [address] 03/23/2022 Appointment Radiology Hailey Mcclendon MD [facility] [address] [place] [address] 03/23/2022 Laboratory Appointment Lab 03/23/2022 Office Visit Gastroenterology Hailey Mcclnedon MD [facility] [address] [place] [address] 05/23/2022 Procedure visit Maxillofacial Surgery Corby Montes MD [facility] [address] [place] [address] documented as of this encounter Visit Diagnoses Diagnosis Encounter for long-term (current) use of antibiotics Bacteremia Recurrent UTI (urinary tract infection) Urinary tract infection, site not specif ied documented in this encounter Care Teams Seo Engineer Relationship Specialty Start Date End Date Albert Zuleta MD PCP - General Family Medicine 01/17/17 10/26/21 [address] [place] [address] documented as of this encounter
--- OUTSIDE RECORDS SUMMARY | 2022-02-08 01:57 | XMS_ITS | Encounter Summary ---
:1960 Author Organization [facility] [place] [address] Care Team Providers Name Role Phone Albert Zuleta MD Primary Care Provider Reason for Visit Reason Comments Nephrolithiasis Encounter Details Date Type Department Care Team Description 11/19/2018 Office Visit Urology at [facility] Crow Galvin Jr., Nephrolithiasis [facility] [place] [address] [facility] [phone] UROLOGY DEPT. [place], [place] [address] (Wo rk) Social History Tobacco [...] Sign Reading Time Taken Comments Blood Pressure 104/44 11/19/2018 2:49 PM EDT Pulse 73 11/19/2018 2:49 PM EDT Temperature 36.4 ??C (97.6 ??F) 11/19/2018 2:49 PM EDT Respiratory Rate - - Oxygen Saturation 98% 11/19/2018 2:49 PM EDT Inhaled Oxygen Concentration - - Weight - - Height - - Body Mass Index - - documented in this encounter Patient Instructions Patient InstructionsWiChristi gorman LPN - 11/19/2018 2:20 PM EDT Instructions following Cystoscopy Activity: As tolerated by your comfort level. Fluids: You should increase your water today. Avoid coffee, tea and cola. You do not need to exceed 64 ounces of water today. Urination: You will likely have a small amount of blood in your urine for the next several days. This is normal; however, if you are passing large amounts of blood clots or are unable to void please call our office at [phone] before 5PM or [phone] after hours. Please call if: * you have copious blood in your urine * fevers greater than 101.3 F * you are unable to void The number for questions is [phone] before 5 PM weekdays and [phone] after 5 PM and weekends. Follow-up: documented in this encounter Procedure Notes Crow Galvin Jr., MD - 11/19/2018 2:20 PM EDTAssociated Order(s): CYSTO, STENT REMOVAL Pre-Procedure Diagnose(s): Nephrolithiasis HPI: Blossom Pacheco is a 57 y.o. female who returns for left ureteral stent removal after undergoing left PCNL. She reports prior history of sarcoidosis. She had been admitted to the Medicine Service on 07/09/2019 for nausea, vomiting, leukocytosis and UTI. CT showed right hydronephrosis, large??right UPJ stone and obstructing??right UVJ stone, as well as a large left renal stone burden which was non-obstrcuting. Urology took her to the OR and placed arit ureteral stent with Dr. Sears on 07/09/2019. Urine cultures from [facility] showed Proteus Mirabilis. Blood cultures at [facility] showed no growth. He was discharged on a two-week course of Cefpodoxime. During this hospital stay, she was counseled on and consented for right-PCNL in August, which has been scheduled for 09/05/2018. We also discussed the possibility of left PCNL a few months later. ?? She underwent right PCNL with u/s guided access on 09/26/18. Intraoperative findings were notable for encrusted right ureteral stent as well as large upper pole stones. She had a postoperative course notable for proteus urosepsis and was discharged home on 2 week course of iv cefepime. She underwent left PCNL on 11/07/18. Intraoperative findings were notable for large renal stone and several smaller stones seen in lower pole calyx on retrograde ureteroscopy, >2cm total stone burden Lower pole calyx targeted for access with ultrasound guidance. Postop CT confirmed she had been rendered stone free bilaterally. She presents today for planned stent removal. Past Medical History: Cardiomyopathy Diabetes Depression HTN HLD MOSES Chronic pain Nephrolithiasis - has had several lithotripsies in the past ?? Past Surgical History: Lithotripsies Open cholecystectomy Open total hysterectomy ??Right PCNL ?? Family History: No family history of kidney stones ?? Social History Lives alone Former smoker No EtOH ?? Prior Stone Analysis: 60% Calcium phosphate 20% Magnesium ammonium phosphate (struvite) 10% Calcium oxalate dihydrate 10% Calcium carbonate Stone Analysis(10/2018): 60% Calcium phosphate (apatite); 30% Calcium oxalate dihydrate;10% Calcium oxalate monohydrate Results for BLOSSOM PACHECO ( ) as of 11/19/2018 14:56 Ref. Range 09/27/2018 01:49 11/07/2018 08:57 PTH Latest Ref Range: 15 - 65 pg/mL 49 42 Results for BLOSSOM PACHECO ( ) as of 11/19/2018 14:56 Ref. Range 11/07/2018 14:35 Calcium Latest Ref Range: 8.5 - 10.5 mg/dL 10.6 (H) We discussed the procedure, risks and planned benefit. We discussed the need to remove the stent as they cannot stay in indefinitely, as well as the risk of possible need for stent or nephrostomy replacement if there was any residual or future ureteral obstruction. Informed consent was obtained. Blossom Pacheco was taken to the cystoscopy room and prepped and draped by our urology nurse. Prophylactic antibiotic administration was confirmed. Topical viscous lidocaine gel was applied to the urethra for local anesthetic. A timeout was performed. Flexible cystoscopy was performed. The urethra was without abnormality. The bladder was entered and inspected. No focal mucosal abnormality was seen. The stent was seen emanating from the left ureteral orifice. It was grasped and extracted. It was inspected and found to be intact. She tolerated the procedure well. I instructed Blossom Pacheco of the need to return in approximately 6 weeks for renal ultrasound toensure that there is no residual hydronephrosis. I cautioned her to contact us immediately with increasing pain, fever, or chills as this could suggest obstruction and may need to be further evaluated on an urgent or emergent basis. I have asked her to call with any additional questions. Impression/Plan: Doing well s/p left PCNL . Stent removed without difficulty. 1) Plan reimaging in 6 weeks to assess for resolution of any hydronephrosis 2)Mixed CaPhos/CaOx stone. We reviewed general dietary modifications for those with stones. We discussed possibility of sarcoid as well as hyperPTH and renal leak. I also recommended and ordered 24h urinalysis, which she will plan to collect prior to follow up in December 2018. 3)Urine sent for culture documented in this encounter Plan of Treatment Upcoming Encounters Date Type Specialty Care Team Description 03/15/2022 Office Visit Neurology Ryann Barfield APRN [facility] [address] [place], [place] [address] 03/23/2022 Appointment Radiology Hailey Mcclendon MD [facility] [address] [address] 03/23/2022 Laboratory Appointment Lab 03/23/2022 Office Visit Gastroenterology Hailey Mcclendon MD [facility] [address] [place], [place] [address] 05/23/2022 Procedure visit Maxillofacial Surgery Corby Montes MD [facility] [address] [place], [place] [address] documented as of this encounter Procedures Procedure Name Priority Date/Time Associated Diagnosis Comme nts URINE CULTURE Routine 11/19/2018 4:30 PM Nephrolithiasis Resul ts for this EDT procedure are i n the results section. CYSTO, STENT Routine 11/19/2018 2:20 PM Nephrolithiasis Result s for this REMOVAL EDT procedure are i n the results section. documented in this encounter Results (ABNORMAL) Urine culture Clean Catch Urine (11/19/2018 4:30 PM EDT) [facility] Method Time Signature Urine Culture 50,000-99,000 cfu/ml Keira albicans HAILEY ANDERSON 10,000-49,000 cfu/ml mixed Gram Negative organisms [facility] Organism Keira HAILEY MONICA albicans () [facility] Specimen (Source) Anatomical Collection Method Collection Time Re ceived Time Location / / Volume Laterality Urine specimen 11/19/2018 4:30 11/19/2018 4:30 obtained by clean PM EDT PM EDT catch procedure (specimen) Resulting Agency Comment Spec In Lab Crow Galvin Jr., MD MICROBIOLOGY - GENERAL ORDER ELINA Performing Organization Address City/State/[place] [address] Cysto, Stent Removal, clinic (11/19/2018 2:20 PM EDT) Narrative Crow Galvin Jr., MD - 11/19/2018 2:20 PM EDT Crow Galvin Jr., MD ? 11/19/2018 ??4:50 PM HPI: ??Blossom Pacheco is a 57 y.o. f emale who returns for left ureteral stent removal after undergoing left PCNL. ??She reports prior history of sarcoidosis. She had been admitted to the [facility] on 07/09/2019 for nausea, vomiting, leukocytosis and UTI. CT showed right hydronephrosis, large??right UPJ stone a nd obstructing??right UVJ stone, as well as a large left renal sto ne burden which was non-obstrcuting. Urology took her to the OR and placed a right ureteral stent with Dr. Sears on 07/09. Urine cultures from [facility] showed Proteus Mirabilis. Bloo d cultures at [facility] showed no growth. He was discharged on a two-we ek course of Cefpodoxime. During this hospital stay, she was couns eled on and consented for right-PCNL in August, which has been s cheduled for 09/05/2018. We also discussed the possibility of lef t PCNL a few months later. ?? She underwent right PCNL with u/s guided access on 09/26/18. ?? Intraoperative findings were notable for encrusted right ureteral stent as well as large upper pole stones . ??She had a ?? postoperative course notable for proteus urosepsis and was discharged home on 2 week course of iv c efepime. She underwent left PCNL on 11/07/18. ??In traoperative findings were notable for large renal stone and severa l smaller stones seen in lower pole calyx on retrograde ureterosc opy, >2cm total stone burden Lower pole calyx targeted for access wi th ultrasound guidance. Postop CT confirmed she had been rendere d stone free bilaterally. She ??presents today for planned stent removal. Past Medical History: Cardiomyopathy Diabetes Depression HTN HLD MOSES Chronic pain Nephrolithiasis - has had several lithot ripsies in the past ?? Past Surgical History: Lithotripsies Open cholecystectomy Open total hysterectomy ??Right PCNL ?? Family History: No family history of kidney stones ?? Social History Lives alone Former smoker No EtOH ?? Prior Stone Analysis: 60% Calcium phosphate 20% Magnesium ammonium phosphate (struvi te) 10% Calcium oxalate dihydrate 10% Calcium carbonate Stone Analysis(10/2018): 60% Calcium phosphate (apatite); 30% Ca lcium oxalate dihydrate;10% Calcium oxalate monohydrat e Results for BLOSSOM PACHECOIE ( ) as of 11/19/2018 14:56 Ref. Range 09/27/2018 01:49 11/07/2018 08: 57 PTH Latest Ref Range: 15 - 65 pg/mL 49 4 2 Results for BLOSSOM PACHECO ( ) as of 11/19/2018 14:56 Ref. Range 11/07/2018 14:35 Calcium Latest Ref Range: 8.5 - 10.5 mg/ dL 10.6 (H) We discussed the procedure, risks and pl anned benefit. We discussed the need to remove the stent a s they cannot stay in indefinitely, as well as the risk of pos sible need for stent or nephrostomy replacement if there was any residual or future ureteral obstruction. Informed consent w as obtained. Blossom Pacheco was taken to the cystos copy room and prepped and draped by our urology nurse. ??Prophylac tic antibiotic administration was confirmed. ??Topical viscous lidocaine gel was applied to the urethra for local anesthe tic. A timeout was performed. ??Flexible cystoscopy was per formed. ??The urethra was without abnormality. ??The bladder was e ntered and inspected. ??No focal mucosal abnormality was seen. ??Th e stent was seen emanating from the left ureteral orifice. ??It was grasped and extracted. ?? It was inspected and found to be intact. ??She tolerated the procedure well. ?? I instructed ??Blossom Pacheco ??of the need to return in approximately 6 weeks for renal ultrasou nd to ensure that there is no residual hydronephrosis. ??I cauti oned her to contact us immediately with increasing pain, fever, or chills as this could suggest obstruction and may need to be f urther evaluated on an urgent or emergent basis. ??I have asked her to call with any additional questions. Impression/Plan: Doing well s/p left PCN L . ??Stent removed without difficulty. 1) Plan reimaging in 6 weeks to assess f or resolution of any hydronephrosis 2)Mixed CaPhos/CaOx stone. We reviewed g eneral dietary modifications for those with stones. We discussed possibility of sarcoid as well as hyperPTH and renal le ak. I also recommended and ordered 24h urinalysis, which she wi ll plan to collect prior to follow up in December 2018. 3)Urine sent for culture Crow Galvin Jr., MD UROLOGY ORDERABLES documented in this encounter Visit Diagnoses Diagnosis Nephrolithiasis Calculus of kidney documented in this encounter Care Teams Crop Scout Relationship Specialty Start Date End Date Albert Zuleta MD PCP - General Family Medicine 01/17/17 10/26/21 [place] [address] documented as of this encounter
--- OUTSIDE RECORDS SUMMARY | 2022-02-08 01:57 | XMS_ITS | Encounter Summary ---
:1960 Author Organization [facility] Address [facility] [place] [address] Care Team Providers Name Role Phone Albert Zultea MD Primary Care Provider Reason for Visit Reason Comments Nephrolithiasis Encounter Details Date Type Department Care Team Description 10/10/2018 Office Visit Urology at [facility] Crow Galvin Encounter for removal of ure teral stent; [facility] MD Megan Nephrolithiasis; Drive [facility] Lower urinary tract symptoms ([place]) [place] [address] UROLOGY DEPT. [phone] [place], [place] [address] Social History Tobacco Use Types [...] Sign Reading Time Taken Comments Blood Pressure 133/74 10/10/2018 1:31 PM EDT Pulse 67 10/10/2018 1:31 PM EDT Temperature - - Respiratory Rate - - Oxygen Saturation 97% 10/10/2018 1:31 PM EDT Inhaled Oxygen Concentration - - Weight - - Height - - Body Mass Index - - documented in this encounter Patient Instructions Patient InstructionsJoAmbreen calles LPN - 10/10/2018 1:20 PM EDT Instructions following Cystoscopy Activity: As [...] to void please call our office at [phone] before 5PM or [phone] after hours. Please call if: * you have copious blood in your urine * fevers greater than 101.3 F * you are unable to void The number for questions is [phone] before 5 PM weekdays and [phone] after 5 PM and weekends. Follow-up: stone documented in this encounter Procedure Notes Crow Galvin Jr., MD - 10/10/2018 1:20 PM EDTAssociated Order(s): CYSTO, STENT REMOVAL Pre-Procedure Diagnose(s): Encounter for removal of ureteral stent HPI: Blossom Samayoa is a 57 y.o. female who returns for right ureteral stent removal after undergoing right PCNL. She had been admitted to the Medicine Service on 07/09/2019 for nausea, vomiting, leukocytosis and UTI. CT showed right hydronephrosis, large right UPJ stone and obstructing right UVJ stone, as well as a large left renal stone burden which was non-obstrcuting. Urology took her to the OR and placed a right ureteral stent with Dr. Sears on 07/09/2019. Urine cultures from [facility] showed Proteus Mirabilis. Blood cultures at [facility] showed no growth. He was discharged on a two-week course ofCefpodoxime. During this hospital stay, she was counseled on and consented for right-PCNL in August, which has been scheduled for 09/05/2018. We also discussed the possibility of left PCNL a few months later. She underwent right PCNL with u/s guided access on 09/26/18. Intraoperative findings were notable for encrusted right ureteral stent as well as large upper pole stones. She had a postoperative course notable for proteus urosepsis and was discharged home on 2 week course of iv cefepime. She presents today for planned stent removal. Past Medical History: Cardiomyopathy Diabetes Depression HTN HLD MOSES Chronic pain Nephrolithiasis - has had several lithotripsies in the past ?? Past Surgical History: Lithotripsies Open cholecystectomy Open total hysterectomy ??Right PCNL Family History: No family history of kidney stones ?? Social History Lives alone Former smoker No EtOH Stone Analysis: 60% Calcium phosphate 20% Magnesium ammonium phosphate (struvite) 10% Calcium oxalate dihydrate 10% Calcium carbonate We discussed the procedure, risks and planned benefit. We discussed the need to remove the stent as they cannot stay in indefinitely, as well as the risk of possible need for stent or nephrostomy replacement if there was any residual or future ureteral obstruction. Informed consent was obtained. Blossom Samayoa was taken to the cystoscopy room and prepped and draped by our urology nurse. Prophylactic antibiotic administration was confirmed. Topical viscous lidocaine gel was applied to the urethra for local anesthetic. A timeout was performed. Flexible cystoscopy was performed. The urethra was without abnormality. The bladder was entered and inspected. No focal mucosal abnormality was seen. The stent was seen emanating from the right ureteral orifice. It was grasped and extracted. It was inspected and found to be intact. She tolerated the procedure well. I instructed Blossom Samayoa of the need to return in approximately [...] any additional questions. Impression/Plan: Doing well s/p right PCNL . Stent removed without difficulty. 1) Planned CT after upcoming left PCNL will allow to assess for resolution of any hydronephrosis 2)Mixed CaPhos stone. We reviewed general dietary modifications for those with stones. We discussed possibility of hyperPTH and I recommended repeat BMP and PTH (prior PTH was normal, but not as suppressed as one might anticipate). I also recommended 24h urinalysis, which she will plan to collect after recovering from left (2nd) PCNL. documented in this encounter Plan of Treatment Upcoming Encounters Date Type Specialty Care Team Description 03/15/2022 Office Visit Neurology Ryann Barfield APRN [facility] [place] [address] 03/23/2022 Appointment Radiology Krishna Mcclendon MD [facility] [place] [address] 03/23/2022 Laboratory Appointment Lab 03/23/2022 Office Visit Gastroenterology Krishna Mcclendon MD [facility] [place] [address] 05/23/2022 Procedure visit Maxillofacial Surgery Corby Montes MD [facility] [place] [address] documented as of this encounter Procedures Procedure Name Priority Date/Time Associated Diagnosis Comme nts URINE CULTURE Routine 10/11/2018 1:22 PM Lower urinary tract R esults for this EDT symptoms (LUTS) procedure ar e in the results section. CYSTO, STENT Routine 10/10/2018 1:20 PM Encounter for Results for this REMOVAL EDT removal of ureteral procedur e are in stent the results section. documented in this encounter Results Urine culture Clean Catch Urine (10/11/2018 1:22 PM EDT) [facility] Method Time Signature Urine Culture No growth KRISHNA ANDERSON ([facility] than [facility] cfu/ml). LABORATORY Specimen (Source) Anatomical Collection Method Collection Time Re ceived Time Location / / Volume Laterality Urine specimen 10/11/2018 1:22 10/11/2018 5:11 obtained by clean PM EDT PM EDT catch procedure (specimen) Resulting Agency Comment Spec In Lab Crow Galvin Jr., MD MICROBIOLOGY - GENERAL ORDER ELINA Performing Organization Address City/State/ZIP Code Phon e Number [place] [id number] Cysto, Stent Removal, clinic (10/10/2018 1:20 PM EDT) Narrative Crow Galvin Jr., MD - 10/10/2018 1:20 PM EDT Crow Galvin Jr., MD ? 10/10/2018 ??5:06 PM HPI: ??Blossom Samayoa is a 57 y.o. f emale who returns for right ureteral stent removal after under going right PCNL. ?? She had been admitted to the [facility] on 07/09/2019 for nausea, vomiting, leukocytosis and UTI. CT showed right hydronephrosis, large right UPJ stone an d obstructing right UVJ stone, as well as a large left renal sto ne burden which was non-obstrcuting. Urology took her to the OR and placed a right ureteral stent with Dr. Sears on 07/09. Urine cultures from [facility] showed Proteus Mirabilis. Bloo d cultures at [facility] showed no growth. He was discharged on a two-we ek course of Cefpodoxime. During this hospital stay, she was couns eled on and consented for right-PCNL in August, which has been s cheduled for 09/05/2018. We also discussed the possibility of lef t PCNL a few months later. She underwent right PCNL with u/s guided access on 09/26/18. ?? Intraoperative findings were notable for encrusted right ureteral stent as well as large upper pole stones . ??She had a ?? postoperative course notable for proteus urosepsis and was discharged home on 2 week course of iv c efepime. ??She presents today for planned stent removal. Past Medical History: Cardiomyopathy Diabetes Depression HTN HLD MOSES Chronic pain Nephrolithiasis - has had several lithot ripsies in the past ?? Past Surgical History: Lithotripsies Open cholecystectomy Open total hysterectomy ??Right PCNL Family History: No family history of kidney stones ?? Social History Lives alone Former smoker No EtOH Stone Analysis: 60% Calcium phosphate 20% Magnesium ammonium phosphate (struvi te) 10% Calcium oxalate dihydrate 10% Calcium carbonate We discussed the procedure, risks and pl anned benefit. We discussed the need to remove the stent a s they cannot stay in indefinitely, as well as the risk of pos sible need for stent or nephrostomy replacement if there was any residual or future ureteral obstruction. Informed consent w as obtained. Blossom Samayoa was taken to the cystos copy room [...] e stent was seen emanating from the right ureteral orifice. ??It wa s grasped and extracted. ?? It was inspected and found to be intact. ??She tolerated the procedure well. ?? I instructed ??Blossom Samayoa ??of the need to return in approximately [...] any additional questions. Impression/Plan: Doing well s/p right PC NL . ??Stent removed without difficulty. 1) Planned CT after upcoming left PCNL w ill allow to assess for resolution of any hydronephrosis 2)Mixed CaPhos stone. We reviewed genera l dietary modifications for those with stones. We discussed poss ibility of hyperPTH and I recommended repeat BMP and PTH (prior PT H was normal, but not as suppressed as one might anticipate). I a lso recommended 24h urinalysis, which she will plan to colle ct after recovering from left (2nd) PCNL. Crow Galvin Jr., MD UROLOGY ORDERABLES documented in this encounter Visit Diagnoses Diagnosis Encounter for removal of ureteral stent Nephrolithiasis Calculus of kidney Lower urinary tract symptoms (LUTS) Other symptoms involving urinary system documented in this encounter Care Teams Test Engineering Technician Relationship Specialty Start Date End Date Albert Zuleta MD PCP - General Family Medicine 01/17/17 10/26/21 [address] [place] [address] documented as of this encounter
--- OUTSIDE RECORDS SUMMARY | 2022-02-08 01:57 | XMS_ITS | Encounter Summary ---
:1960 Author Organization [facility] [place] [address] Care Team Providers Name Role Phone Albert Zuleta MD Primary Care Provider Reason for Referral Diagnostic Test (Routine) - Closed Specialty Diagnoses / Procedures Referred By Contact Refer red To Contact Radiology Diagnoses Hyperparathyroidism, primary Emily Mcmahon MD [facility] Rad Xray Procedures DXA Central-Spine, Hip, And/Or Whole Body (Generic) [facility] [address] [place] [address] [facility] [place] [address] [place] [address] Referral ID Status Reason Start Date Expiration Date Visits V isits Requested Authorized [id number] Closed Specialty 10/15/2018 10/15/2019 1 1 Service Requested Diagnostic Test (Routine) - Closed Specialty Diagnoses / Procedures Referred By Contact Refer red To Contact Radiology Diagnoses Hyperparathyroidism, primary Emily Mcmahon MD [facility] Rad Nuclear Med Procedures NM Parathyroid w Spect CT & Thyroid Imaging (Leb) [facility] [address] [place] [place] [address] [place] [address] Referral ID Status Reason Start Date Expiration Date Visits V isits Requested Authorized [id number] Closed Specialty 10/15/2018 10/15/2019 1 1 Service Requested Encounter Details Date Type Department Care Team Description 10/15/2018 Orders Only General Surgery at [place], Emily Wahl, [facility] MD [facility] [address] [place] GENERAL SURGERY [address] [place] [address] [phone] (Wo rk) Social History Tobacco Use Types [...] [facility] [address] [place], [place] [address] 03/23/2022 Appointment Radiology Hailey Mcclendon MD [facility] [address] [place] [address] 03/23/2022 Laboratory Appointment Lab 03/23/2022 Office Visit Gastroenterology Hailey Mcclendon MD [facility] [address] [place] [address] 05/23/2022 Procedure visit Maxillofacial Surgery Corby Montes MD [facility] [address] [place] [address] documented as of this encounter Results DXA Central-Spine, Hip, And/Or [...] dose-response associated with most risk factors. For maryse remy, the significant increase in risk associated with [...] measurements an d plots are available in [facility] under the imaging tab. Paper copies will be sent to providers without E- access. If you have received this report without [facility] data sheet and do not have access to [facility], please contact Radiology Transcrip tion at [phone] Sunday thru Sunday 8am-4pm. Thank you for letting us participate in the care of this patient. For questions regarding this report, please contact e number below. ? Electronically signed by: EDUARDO Watt [facility] ([phone]), at 11/28/2018 2:31 PM Narrative 11/28/2018 2:31 PM EDT EXAMINATION: DXA CENTRAL-SPINE, HIP, AND/OR WHOLE BODY (GENERIC) CLINICAL HISTORY: Hyperparathyroidism TECHNIQUE: Scans were acquired at the [facility] spine, left hip, and left forearm. The [...] Hyperparathyroidism TECHNIQUE: Scans were acquired at the [facility] spine, left hip, and left forearm. [...] This is available through an interactive web-based [employer] (http://www.shef.ac.uk/FRAX/) and can be used to [...] measurements an d plots are available in [facility] under the imaging tab. Paper copies will be sent to providers without [facility] access. If you have received this report without [facility] data sheet and do not have access to [facility], please contact [facility] at [phone] Sunday thru Sunday 8am-4pm. Thank you for letting us participate in the care of this patient. For questions regarding this report, please contact [facility] number below. Electronically signed by: EDUARDO Watt [facility] ([phone]), at 11/28/2018 2:31 PM Emily Mcmahon MD IMG DEXA ORDERABLES NM Parathyroid w Spect CT & Thyroid [...] contact e number below. ? Narrative 11/28/2018 4:06 PM [...] contact e number below. Emily Mcmahon MD IM NM ORDERABLES Vitamin D, 25-Hydroxy (11/07/2018 8:57 AM EDT) athologist Signature 25-OH Vit D 32 30 - 100 [facility] Total ng/mL [facility] Comment: Deficient <10 ng/mL Insufficient 10 to 29 ng/mL Sufficient 30 to 100 ng/mL Potential Intoxication >100 ng/mL According to the [place] National Osteoporosi s Foundation, Vitamin D concentrations >30 ng/mL are sufficient to protect bone health. ??The National Kidney Foundation has similarly stated that pat ients with Vitamin D concentrations <30ng/mL should be considered to be insu fficient or deficient. http://B-152.com/nkf-guidelines http://B-152.LDK Solar/nejm-VitD The [employer] Vitamin D Immunoassay detec ts both 25-OH Vitamin D2 and 25-OH Vitamin D3, but only a total Vitamin D c oncentration is reported. Specimen Anatomical Collection Method Collection Time Receive d Time (Source) Location / / Volume Laterality Blood specimen 11/07/2018 8:57 AM 019 1:06 (specimen) EDT PM EDT Resulting Agency Comment Spec In Lab Emily Mcmahon MD CHEMISTRY ORDERABLES Performing Organization Address City/State/[place] [address] (ABNORMAL) Calcium (11/07/2018 8:57 AM EDT) athologist Signature Calcium 11.6 (H) 8.5 - 10.5 [place] mg/dL [facility] Specimen Anatomical Collection Method Collection Time Receive d Time (Source) Location / / Volume Laterality Blood specimen 11/07/2018 8:57 AM 019 9:04 (specimen) EDT AM EDT Resulting Agency Comment Spec In Lab Emily Mcmahon MD CHEMISTRY ORDERABLES Performing Organization Address City/[facility]/ZIP Code Phon e Number [address] PTH (11/07/2018 8:57 AM EDT) P athologist Signature PTH 42 15 - 65 [facility] pg/mL [facility] Specimen Anatomical Collection Method Collection Time Receive d Time (Source) Location / / Volume Laterality Blood specimen 11/07/2018 8:57 AM 019 9:04 (specimen) EDT AM EDT Resulting Agency Comment Spec In Lab Emily Mcmahon MD CHEMISTRY ORDERABLES Performing Organization Address City/[facility]/ZIP Code Phon e Number [address] (ABNORMAL) Calcium, Ionized, Serum (11/07/2018 8:57 AM EDT) P athologist Signature ICA serum 1.42 (H) 1.15 - 1.33 [facility] mmol/L [facility] Comment: Note: Total bilirubin higher than 20 mg/ dL may lead to falsely low ionized calcium. Specimen Anatomical Collection Method Collection Time Receive d Time (Source) Location / / Volume Laterality Blood specimen 11/07/2018 8:57 AM 019 9:04 (specimen) EDT AM EDT Resulting Agency Comment Spec In Lab Emily Mcmahon MD CHEMISTRY ORDERABLES Performing Organization Address City/[facility]/ZIP [facility] Phon e Number [address] documented in this encounter Visit Diagnoses Diagnosis Hyperparathyroidism, primary Primary hyperparathyroidism Hyperparathyroidism, primary Primary hyperparathyroidism Hyperparathyroidism, primary Primary hyperparathyroidism documented in this encounter Care Teams All Around Presser Relationship Specialty Start Date End Date Albert Zuleta MD PCP - General Family Medicine 01/17/17 10/26/21 [place] [address] documented as of this encounter
--- OUTSIDE RECORDS SUMMARY | 2022-02-08 01:57 | XMS_ITS | Encounter Summary ---
:1960 Author Organization [facility] [place] [address] Care Team Providers Name Role Phone Albert Zuleta MD Primary Care Provider Encounter Details Date Type Department Care Team Description 11/06/2018 Telephone Urology Isidra Restrepo MD [facility] [place] [address] UROLOGY DEPT [phone] [place], [place] [address] (Wo rk) Social History Tobacco [...] this encounter Miscellaneous Notes Telephone Encounter - Isidra Restrepo MD - 11/06/2018 3:14 PM EDT I called to talk to Blossom about her urine culture results from [facility] from 10/31, growing >100k klebsiella pneumoniae and >100k proteus mirabilis. Klebsiella S to cefazolin, cipro, gentamicin, bactrim, ceftriaxone; R to ampicillin; I to nitrofurantoin Proteus S to cefazolin and ceftriaxone, R to ampicillin/nitrofurantoin/bactrim, I to gentamicin. She is scheduled for PCNL tomorrow. She has been on cephalexin QID since the . This should be sufficient. documented in this encounter Plan of Treatment Upcoming Encounters Date Type Specialty Care Team Description 03/15/2022 Office Visit Neurology Ryann Barfield, [facility] [address] [place] [address] 03/23/2022 Appointment Radiology Hailey Mcclendon MD [facility] [place] [address] 03/23/2022 Laboratory Appointment Lab 03/23/2022 Office Visit Gastroenterology Hailey Mcclendon MD [facility] [place] [address] 05/23/2022 Procedure visit Maxillofacial Surgery Corby Montes MD [facility] [place] [address] documented as of this encounter Visit Diagnoses Not on filedocumented in this encounter Care Teams High Speed Operator Relationship Specialty Start Date End Date Albert Zuleta MD PCP - General Family Medicine 01/17/17 10/26/21 [address] [place] [id number] documented as of this encounter
--- OUTSIDE RECORDS SUMMARY | 2022-02-08 01:57 | XMS_ITS | Encounter Summary ---
:1960 [place] [address] Care Team Providers Name Role Phone Albert Zuleta MD Primary Care Provider Reason for Visit Auth/Cert Specialty Diagnoses / Procedures Referred By Contact Refer red To Contact Diagnoses Renal calculus, left LEFT RENAL STONES Procedures PRO PERCUT REMV KID STONE, 2+ CM PRO PLMT NEPHROSTOMY CATH PRQ NEW ACCESS RS&I PRO CYSTOURETHROSCOPY, URETER CATHETER PRO CYSTO W URETEROSCOPY &/OR PYELOSCOPY, DX NEPHROLITHOTOMY, (PCNL) PERCUTANEOUS, OVER 2CM (WRVU 23.5) NEPHROSTOMY CATHETER, PERC, INC DX NEPHROSTOGRAM/URETEROGRAM, IMG GUIDANCE (WRVU 4.25) CYSTO, RETROGRADE, URETEROPYELOGRAPHY, W/PCNL (WRVU 2.37) CYSTOURETEROSCOPY, DIAGNOSTIC (WRVU 5.75) MODIFIER HOLMIUM LASER Referral ID Status Reason Start Date Expiration Date Visits Requ ested Visits Authorized [id number] 1 1 Encounter Details Date Type Department Care Team Description 11/07/2018 Surgery Main Operating Room Meghana Galvin Jr., N EPHROLITHOTOMY, (PCNL) Hailey Mandujano MD PERCUTANEOUS, OVER 2CM Hospital [facility] (WRVU 23.5) [facility] [address] [place] [address] [place] [address] [phone] (Wo rk) Social History Tobacco Use Types [...] Sign Reading Time Taken Comments Blood Pressure 139/66 11/07/2018 2:30 PM EDT Pulse 68 11/07/2018 2:45 PM EDT Temperature 36.3 ??C (97.3 ??F) 11/07/2018 1:57 PM EDT Respiratory Rate 22 11/07/2018 2:45 PM EDT Oxygen Saturation 99% 11/07/2018 2:45 PM EDT Inhaled Oxygen Concentration - - Weight - - Height - - Body Mass Index - - documented in this encounter Discharge Summaries Avani Huynh PA - 11/08/2018 2:22 PM EDT UROLOGY SERVICE Inpatient - Discharge Summary Patient Name: Blossom Samayoa Patient Age: 57 y.o. : 1960 Attending Physician: Meghana Galvin Jr., MD Date of Admission: 11/07/2018 Date of Discharge: 11/08/2018 Diagnosis: Active Hospital Problems Diagnosis ??? Renal calculus, left Resolved Hospital Problems No resolved problems to display. Operations/Major Procedures: Operations: 11/07/2018 Surgeon(s) and Role: * Meghana Galvin Jr., MD - Primary * Corby Jose MD - Resident: Procedure(s): NEPHROLITHOTOMY, (PCNL) PERCUTANEOUS, OVER 2CM (WRVU 23.5) NEPHROSTOMY CATHETER, PERC, INC DX NEPHROSTOGRAM/URETEROGRAM, IMG GUIDANCE (WRVU 4.25) CYSTO, RETROGRADE, URETEROPYELOGRAPHY, W/PCNL (WRVU 2.37) CYSTOURETEROSCOPY, DIAGNOSTIC (WRVU 5.75) MODIFIER HOLMIUM LASER HPI (from Dr. Galvin clinic note from 10/10/2018): Blossom Samayoa is a 57 y.o. female who returns for right ureteral stent removal after undergoing right PCNL. She had been admitted to the Medicine Service on 07/09/2019 for nausea, vomiting, leukocytosis and UTI. CT showed right hydronephrosis, large??right UPJ stone and obstructing??right UVJ stone, as well as a large left renal stone burden which was non-obstrcuting. Urology took her to the ORand placed a right ureteral stent with Dr. Sears on 07/09/2019. Urine cultures from [facility] showed Proteus Mirabilis. Blood cultures at [facility] showed no growth. He was discharged on a two-week course of Cefpodoxime. During this hospital stay, she was counseled on and consented for right-PCNL in August,which has been scheduled for 09/05/2018. We also [...] She presents today for planned stent removal. Hospital Course: Blossom Samayoa was admitted to [facility] on 11/07/2018 through the Same Day Surgery program after undergoing the procedure noted above. The intra-operative findings were 1. Normal bladder, b/l orthotopic UOs 2. Large renal stone and several smaller stones seen in lower pole calyx on retrograde ureteroscopy,>2cm total stone burden 3. Lower pole calyx targeted for access with ultrasound guidance 4. Stones fragmented and removed with Lithoclast 5. No stones seen on mapping pyeloscopy or antegrade ureteroscopy 6. Fulguration of bleeding vessels in access tract done using bugbee 7. 7 Fr ureteral stent placed in antegrade fashion 8. 24 nephrostomy placed via access tract After adequate recovery from anesthesia in the PACU, the patient was transferred to the regular floor. Her hospital stay was unremarkable. PCN and Elliott were removed on POD1. Wound care was consulted for a poorly healing wound on right flank after PCNL last month. Blossom Samayoa's pain was adequately controlled, she was maintaining adequate oxygen saturation on room air, and was hemodynamically stable. She was tolerating a diet without abdominal complaints and voiding adequately. WBC and Hgb were stable. She was ambulating independently. Blossom Samayoa was evaluated by the Urology team and deemed medically stable for discharge on 11/08/2018 on 5 days ofKeflex. Plans made for follow up in Urology clinic in 7-10 days for stent removal. Updated Allergies/ADRs: Allergies Allergen Reactions ??? Anafranil [Clomipramine] give me the flu ??? Augmentin [Amoxicillin-Pot Clavulanate] Hives and Itching ??? Cis Free Text Allergy Ketamine. CIS - hallucinations ??? Erythromycin Hives and Itching ??? Macrobid [Nitrofurantoin Monohyd/M-Cryst] Causes depression ??? Sulfa (Sulfonamide Antibiotics) Hives Pending Lab Data at Discharge: Stone analysis and culture pending Condition at Discharge: Stable Important Studies and Lab Data: Labs: Recent Labs 11/08/18 0156 11/07/18 1435 WBC 14.1* 7.8 HGB 11.1* 10.9* HCT 33.8* 33.9* PLATELET 251 213 Recent Labs 11/08/18 0156 11/07/18 1435 11/07/18 0857 NA 136 136 -- K 4.9 4.8 -- CL 103 102 -- CO2 20* 21* -- BUN 15 14 -- CREATININE 0.74 0.79 -- GLUCOSE 211* 165 -- CALCIUM 9.9 10.6* 11.6* Studies: 11/08 CT Abd/Pelvis without contrast 1. Emani catheter withdrawn out of the kidney but attached to the [place]. The Pollack catheter tip is at the proximal ureter. 2. No residual calculus. 3. Stable ventral wall hernia containing small bowel. 4. Diverticulosis. Discharge Examination: Last value Range last 12 hrs Temperature Temp: 37 ??C (98.6 ??F) Temp: [37 ??C (98.6 ??F)] Heart Rate Heart Rate: 80 Heart Rate: [73-80] Blood Pressure BP: 153/89 BP: (109-153)/(46-89) Respiratory Rate Resp: 16 Resp: [16-18] SpO2 SpO2: 98 % SpO2: [97 %-98 %] I/Os: I/O last 3 completed shifts: In: 2529 [P.O.:1340; I.V.:1189] Out: 3830 [Urine:3830] I/O this shift: In: 984 [P.O.:400; I.V.:584] Out: 1650 [Urine:1650] Physical Exam: Gen: NAD CV: RRR Pulm: CTAB ABd: obese, soft, NT, ND Incisions: Left PCN site with dressing with minimal SS drainage. Right PCN site healing poorly. Discharge to: Home Discharge Conditions/Prognosis: Stable Discharge Medications: The following medications have been prescribed for you. If you notice any adverse reactions to your medications, please contact your primary care physician immediately or go to the nearest Emergency Department. Your Medications New Medications Dose Details oxyCODONE 10 mg Tab Commonly known as: ROXICODONE Take 0.5-1 tablets by mouth every 4 hours as needed for Pain. 5-10 mg Quantity: 10 tablet Refills: 0 Continued medications with new dosing Dose Details cephALEXin 500 mg Cap Commonly known as: KEFLEX Take 1 capsule by mouth 4 times daily for 5 days. What changed: ?? how much to take ?? how to take this 500 mg Quantity: 20 capsule Refills: 0 Continued medications, unchanged Dose Details [...] Inject subcutaneously once a week. Refills: 0 Follow-up Care & Plans: For questions, orders or appointments related to your continuing care after your discharge, you or your provider should contact the physician that managed that part of your care. Urology Clinic: [phone] PCP: Albert Zuleta MD, . Please follow-up with your PCP in 1-2 weeks or sooner as needed. Scheduled Appointments: The following appointments have been scheduled on your behalf: Future Appointments and Orders Future Appointments and Orders Future Appointments Provider Department Dept Phone 11/28/2018 9:30 AM [facility] Nuclear Medicine at at [facility] Arrive at: [employer] [facility] [phone] 11/28/2018 10:00 AM [facility] NM ROOM 3 Nuclear Medicine at [facility] Arrive at: [employer] [facility] [phone] 11/28/2018 12:00 PM [facility] ROOM 3 Nuclear Medicine at at [facility] Arrive at: [address] [phone] 11/28/2018 1:00 PM LAB, THREE L Lab [address] [place] [address] Arrive at: [employer] [facility] [phone] 11/28/2018 1:30 PM [facility] DEXA ROOM 1 XRay at [place] Arrive at: [employer] [facility] [phone] Please arrive 15 minutes prior to your appointment time. Please go to [facility] ([place] Location). 11/28/2018 2:30 PM Emily Mcmahon MD General Surgery at [place] Arrive at: [employer] [facility] [phone] 12/23/2018 10:30 AM Ace Henry MD General Surgery at [place] Arrive at: [employer] [facility] [phone] 12/31/2018 4:30 PM Meghana Galvin Jr., MD Urology at [place] Arrive at: [facility] [phone] Outpatient Services/Studies: No discharge procedures on file. Instructions Given to Patient at Discharge: Patient Instructions DISCHARGE INSTRUCTIONS FOLLOWING PCNL Call your doctor for: ??? fevers greater than 101.5 ??? severe nausea or vomiting ??? increasing pain not controlled by pain medications ??? increasing redness or drainage from incisions ??? decreased urine output The number for questions is [phone] before 5 PM weekdays and [phone] after 5 PM and weekends. Antibiotics: Please take 5 more days of Keflex (four times per day). Finish all pills. Activity: Gradually increase activity with short frequent walks, three to four times a day. Avoid strenuous activities, like sports, lawn mowing, or heavy lifting more than 10-[address] taking pain medication, or until your doctor permits it. Bathing and dressing change: You should not shower for 48 hours after surgery. Do not soak your back in a bathtub. Keep wound clean and dry. Change gauze as needed. Diet: It is extremely important to drink plenty of fluids after surgery, especially water. You may resume your regular diet, unless otherwise instructed Medications: You may take Tylenol (acetaminophen) or Ibuprofen (Advil, Motrin) as directed [id number]. Take any prescriptions as directed. Follow up Appointments: Follow-up appointment will be scheduled with Dr. Galvin in 2 weeks for a hospital check and stent removal. Appointment will be mailed to you. Please call [phone] (clinic number for appointments) to confirm date and time of your appointment if you do not receive it. You have a ureteral stent in place. It is important to remember that a stent is not a permanent device and must be removed in a timely fashion. Failure to remove a stent may result in the need for moreprocedures. Special considerations for narcotic pain medications: You may be given a prescription for a narcotic medication immediately following your surgery. Narcotics are prescribed for short-term use to help treat your pain. Surgical pain requiring narcotics willusually be greatly decreased 2-3 days after surgery & should be mild to absent by 10-14 days. We will prescribe a narcotic pain reliever for no longer than 1 week following your surgery. This will be determined by your surgeon. Narcotics do not reduce inflammation and it is inflammation that is usually a major cause of pain after surgery. Narcotics have many side effects such as constipation, lightheadedness, dizziness, sedation, confusion, nausea and vomiting. Driving and the use of alcohol are not recommended while you are using narcotic pain medications. Non-steroidal anti-inflammatories (NSAIDS) such as aspirin, Aleve and ibuprofen (Advil, Motrin) are medications that reduce pain and inflammation. If you find your pain is not adequately controlled with the prescribed dose of your narcotic pain medication, NSAIDS may be used 48 hours after surgery with your narcotic to help alleviate the pain caused by inflammation. As you progress through your post-operative period, your pain should decrease and the use of narcotic medications should be less necessary. To reduce your chance of side effects, it is recommended thatyou save your narcotic medication for nighttime use and switch to NSAIDS or Acetaminophen (Tylenol) during the day. Alternative means of pain relief such as rest and relaxation, positioning, as well as decreasing stimulants such as coffee, tea, soft drinks, and nicotine may also help to alleviate pain. If you continue to experience significant pain 4-5 days after your procedure, it may be necessary matias re-evaluated by your physician. PRESCRIPTION RENEWALS: Renewal requests should be called in to our office. Narcotic renewals may be requested from 8am-4pm Sunday through Sunday. Due to patient safety, narcotic renewals will not be honored after hours or on weekends. It is best to make your request 2-3 days before you run out of your medication as it will take at least 24 hours for physician approval and nurse follow-up. Note that certain prescriptions, such as Percocet, Oxycodone, Vicodin, & Hydrocodone can not be called in to a pharmacy and must be picked up or mailed to you. If mailed to you, expect 2-5 businessdays prior to arrival. General Instructions Wound Care Recommendations: Right flank wound: Medihoney Gel and Mepilex Border - change dressing every, Sunday, Sunday, Sunday and as needed for dressing with 50% or greater strike though drainage. 1. Cleanse wound with dermal wound cleanser. 2. Apply No-Sting skin prep to intact jason wound skin. 3. Apply Medihoney to the wound bed. 4. Cover with an Alldress Dressing or Mepilex Border. Call your doctor if: Please call your doctor immediately or go to an Emergency Department if you notice worsening pain not controlled by pain medications, uncontrolled headache, vision changes, chest pain, difficulty breathing, persistent nausea and vomiting, new redness or swelling in any extremities, new onset weakness or changes in sensation, or for any fevers greater than 101.3 F. Your care was managed by the Urologic Surgery Team at [facility]. If you have any questions or concerns, please feel free to contact us. Provider Contact Information: Urology Clinic: [phone] [facility] (after business hours): CC: Albert Zuleta MD Signed: JETT DERAS 11/08/2018 documented in this encounter Discharge Instructions Discharge InstructionsKadi Rey RN - 11/08/2018 1:57 PM EDT Wound Care Recommendations: Right flank wound: Medihoney Gel and Mepilex Border - change dressing every, Sunday, Sunday, Sunday and as needed for dressing with 50% or greater strike though drainage. 1. Cleanse wound with dermal wound cleanser. 2. Apply No-Sting skin prep to intact jason wound skin. 3. Apply Medihoney to the wound bed. 4. Cover with an Alldress Dressing or Mepilex Border. Patient InstructionsAvani Ferguson PA - 11/07/2018 10:37 AM EDT DISCHARGE INSTRUCTIONS FOLLOWING PCNL Call your doctor for: ??? fevers greater than 101.5 ??? severe nausea or vomiting ??? increasing pain not controlled by pain medications ??? increasing redness or drainage from incisions ??? decreased urine output The number for questions is [phone] before 5 PM weekdays and [phone] after 5 PM and weekends. Antibiotics: Please take 5 more days of Keflex (four times per day). Finish all pills. Activity: Gradually increase activity with short frequent walks, three to four times a day. Avoid strenuous activities, like sports, lawn mowing, or heavy lifting more than 10-[address] taking pain medication, or until your doctor permits it. Bathing and dressing change: You should not shower for 48 hours after surgery. Do not soak your back in a bathtub. Keep wound clean and dry. Change gauze as needed. Diet: It is extremely important to drink plenty of fluids after surgery, especially water. You may resume your regular diet, unless otherwise instructed Medications: You may take Tylenol (acetaminophen) or Ibuprofen (Advil, Motrin) as directed [id number]. Take any prescriptions as directed. Follow up Appointments: Follow-up appointment will be scheduled with Dr. Galvin in 2 weeks for a hospital check and stent removal. Appointment will be mailed to you. Please call [phone] (clinic number for appointments) to confirm date and time of your appointment if you do not receive it. You have a ureteral stent in place. It is important to remember that a stent is not a permanent device and must be removed in a timely fashion. Failure to remove a stent may result in the need for moreprocedures. Special considerations for narcotic pain medications: You may be given a prescription for a narcotic medication immediately following your surgery. Narcotics are prescribed for short-term use to help treat your pain. Surgical pain requiring narcotics willusually be greatly decreased 2-3 days after surgery & should be mild to absent by 10-14 days. We will prescribe a narcotic pain reliever for no longer than 1 week following your surgery. This will be determined by your surgeon. Narcotics do not reduce inflammation and it is inflammation that is usually a major cause of pain after surgery. Narcotics have many side effects such as constipation, lightheadedness, dizziness, sedation, confusion, nausea and vomiting. Driving and the use of alcohol are not recommended while you are using narcotic pain medications. Non-steroidal anti-inflammatories (NSAIDS) such as aspirin, Aleve and ibuprofen (Advil, Motrin) are medications that reduce pain and inflammation. If you find your pain is not adequately controlled with the prescribed dose of your narcotic pain medication, NSAIDS may be used 48 hours after surgery with your narcotic to help alleviate the pain caused by inflammation. As you progress through your post-operative period, your pain should decrease and the use of narcotic medications should be less necessary. To reduce your chance of side effects, it is recommended thatyou save your narcotic medication for nighttime use and switch to NSAIDS or Acetaminophen (Tylenol) during the day. Alternative means of pain relief such as rest and relaxation, positioning, as well as decreasing stimulants such as coffee, tea, soft drinks, and nicotine may also help to alleviate pain. If you continue to experience significant pain 4-5 days after your procedure, it may be necessary matias re-evaluated by your physician. PRESCRIPTION RENEWALS: Renewal requests should be called in to our office. Narcotic renewals may be requested from 8am-4pm Sunday through Sunday. Due to patient safety, narcotic renewals will not be honored after hours or on weekends. It is best to make your request 2-3 days before you run out of your medication as it will take at least 24 hours for physician approval and nurse follow-up. Note that certain prescriptions, such as Percocet, Oxycodone, Vicodin, & Hydrocodone can not be called in to a pharmacy and must be picked up or mailed to you. If mailed to you, expect 2-5 businessdays prior to arrival. documented in this encounter Medications at Time [...] 03/09/2018 (PRINIVIL;ZESTRIL) 5 MOUTH DAILY mg Tablet cephALEXin (KEFLEX) Take 1 capsule by 20 capsule 0 9 11/13/2018 500 mg Capsule mouth 4 times daily for 5 days. oxyCODONE (ROXICODONE) Take 0.5-1 tablets by 10 tablet 0 11/28/2018 10 mg Tablet mouth every 4 hours as needed for Pain. amitriptyline (ELAVIL) Take 25 mg by mouth [...] documented as of this encounter Progress Notes Yuni Almendarez RN - 11/08/2018 2:46 PM EDT Patient Name: Blossom Samayoa Patient Age: 57 y.o. Birthdate: 1960 Admit date: 11/07/2018 Attending Physician: Meghana Galvin Jr., MD Blossom Samayoa discharged to Home by private car with sister. All belongings sent with patient. BRITNI removed, incision no significant drainage, skin free from pressure ulcers. Discharge instructions, medications, and follow-up appointments reviewed, education provided on what to look for at the incision site, paper prescriptions given to patient, all questions answered. Patient instructed to call with concerns. Sakshi Washington RN - 11/07/2018 4:05 PM EDT Patient arrived to floor from PACU alert and oriented x 3. Patient states pain tolerable. Educated and discussed pain management with patient. Patient verbalizes understanding of pain control. Patient denies chest pain, SOB, or nausea. See assessment on flowsheet. Oriented patient to room, call leigh is within reach. Will continue to monitor. Maxine Hung RN - 11/07/2018 2:10 PM EDT Pt to PACU via bed from OR; monitors applied, alarms set and audible. Area of drainage on nephrostomy dsg shown to Dr. Jose; circled and will continue to monitor. 1425: Labs sent. 1445: Medicated for discomfort. 1530: Sister in to bedside. 1540: Report to SSCU; transported. documented in this encounter H&P Notes Corby Jose MD - 11/07/2018 10:34 AM EDT Patient Name: Blossom Samayoa Age: 57 y.o. Date of : 1960 Attending Provider: Meghana Galvin Jr., MD Urology Pre-op H&P (from Dr. Galvin clinic note 10/10/18) Blossom Samayoa is a 57 y.o. female who returns for right ureteral stent removal after undergoingright PCNL. She had been admitted to the Medicine Service on 07/09/2019 for nausea, vomiting, leukocytosis and UTI. CT showed right hydronephrosis, large??right UPJ stone and obstructing??right UVJ stone, as well as a large left renal stone burden which was non-obstrcuting. Urology took her to the OR and placed a right ureteral stent with Dr. Sears on 07/09/2019. Urine cultures from [facility] showed Proteus Mirabilis. Blood cultures at [facility] showed no growth. He was discharged on [...] on 2 week course of iv cefepime. Presents to OR today for planned Left PCNL. Has continued to be off ASA 81mg. Has been on Keflex course for recent positive urine culture. MEDICAL AND SURGICAL HISTORY Past Medical History: Diagnosis Date ??? Asthma ??? Bowel disease IBS ??? CHF (congestive heart failure) diag 2016 [facility] ??? Chronic lung disease sarcoidosis [...] Surgical History: Procedure Laterality Date ??? PRG FLUOROSCOPY EXAM UP TO 1 HR PHY OR OTH HLTH CARE PROV N/A 09/26/2018 FLUOROSCOPY (WRVU 0.17) performed by Meghana Galvin Jr., MD at [facility] OR ??? PRG US GUIDE INTRAOP Right 09/26/2018 ULTRASONIC GUIDANCE, INTRAOP (WRVU 1.2) performed by Meghana Galvin Jr., MD at [facility] OR ? ? PRO CYSTO W URETEROSCOPY &/OR PYELOSCOPY, DX Right 09/26/2018 CYSTOURETEROSCOPY, DIAGNOSTIC (WRVU 5.75) performed by Meghana Galvin Jr., MD at [facility] OR ??? PRO CYSTOSCOPY, INSERT URETERAL STENT Right 07/10/2018 CYSTO, STENT PLACEMENT (WRVU 2.82) performed by Viky Sears MD at [facility] OR ??? PRO CYSTOSCOPY, REMV CALCULUS, COMPLIC Right 09/26/2018 CYSTO, REMOVAL OF STENT, FOREIGN BODY, CALCULUS, COMPLICATED (WRVU 5.2) performed by Meghana Galvin MD at [facility] OR ??? PRO CYSTOURETHROSCOPY, URETER CATHETER Right 07/10/2018 CYSTO, RETROGRADE, URETEROPYELOGRAPHY (WRVU 2.37) performed by Viky Sears MD at [facility] OR ??? PRO CYSTOURETHROSCOPY, URETER CATHETER Right 09/26/2018 CYSTO, RETROGRADE, URETEROPYELOGRAPHY, W/PCNL (WRVU 2.37) performed by Meghana Galvin Jr., MD at [facility] OR ??? PRO PERCUT REMV KID STONE, 2+ CM Right 09/26/2018 NEPHROLITHOTOMY, (PCNL) PERCUTANEOUS, OVER 2CM (WRVU 23.5) performed by Meghana Galvin Jr., MD at [facility] OR ? ? PRO PLMT NEPHROSTOMY CATH PRQ NEW ACCESS RS&I Right 09/26/2018 NEPHROSTOMY CATHETER, PERC, INC DX NEPHROSTOGRAM/URETEROGRAM, IMG GUIDANCE (WRVU 4.25) performed byMeghana Galvin Jr., MD at [facility] OR ALLERGIES Allergies Allergen Reactions ??? Anafranil [Clomipramine] give me the flu ??? Augmentin [Amoxicillin-Pot Clavulanate] Hives and Itching ??? Cis Free Text Allergy Ketamine. CIS - hallucinations ??? Erythromycin Hives and Itching ??? Macrobid [Nitrofurantoin Monohyd/M-Cryst] Causes depression ??? Sulfa (Sulfonamide Antibiotics) Hives MEDICATIONS No current facility-administered medications on file prior to encounter. Current Outpatient Medications on File Prior to Encounter Medication Sig Dispense Refill ??? amitriptyline (ELAVIL) 25 mg Tablet Take 25 mg by mouth nightly. ??? cephALEXin (KEFLEX) 500 mg Capsule 4 times daily. 0 ??? ibuprofen (ADVIL;MOTRIN) 200 mg Tablet Take 800 mg by mouth every 6 hours as needed for Pain. ??? lactobacillus rhamnosus, GG, (CULTURELLE) 10 billion cell Capsule Take 1 capsule by mouth daily. ??? atorvastatin (LIPITOR) 10 mg Tablet Take [...] by mouth daily. 30 tablet 3 ??? INCRUSE ELLIPTA 62.5 mcg/actuation Disk with Device INHALE ONE PUFF BY MOUTH EVERY DAY 5 ??? glipiZIDE-metFORMIN (METAGLIP) 5-500 mg Tablet TAKE TWO TABLETS BY MOUTH TWICE A DAY 3 ??? gabapentin (NEURONTIN) 600 mg Tablet [...] TABLET BY MOUTH TWICE A DAY1 ??? CANNABIDIOL, CBD, EXTRACT ORAL Take by mouth as needed. ??? ACYCLOVIR ORAL Take by mouth as needed. ??? nitroGLYcerin (NITROSTAT) 0.4 mg Tablet, Sublingual Place 0.4 mg under the tongue every 5 minutes as needed for Chest pain. ??? diclofenac (VOLTAREN) 1 % Gel Apply topically 4 times daily as needed. ??? levalbuterol (XOPENEX HFA) 45 mcg/actuation HFA Aerosol Inhaler INHALE TWO PUFFS BY MOUTH EVERY 4 TO 6 HOURS NEEDED 3 ??? loratadine (CLARITIN) 10 mg Tablet TAKE ONE TABLET BY MOUTH EVERY DAY NEEDED 3 PHYSICAL EXAM Temp: [36 ??C (96.8 ??F)] Heart Rate: [70] Resp: [15] BP: (118)/(66) SpO2: [100 %] Heart Rate from SpO2: -- GEN: Resting comfortably in bed, conversant, NAD. CHEST: Normal work of breathing. CV: Sinus rhythm. 2+ pulses bilaterally. ABD: Soft, non-tender, non-distended. EXTR: Moving spontaneously. SKIN: Warm and dry. NEURO: Alert and follows commands. ASSESSMENT / PLAN 57 y.o. female presenting for Left PCNL. Patient appears fit for surgery. The details, alternatives,risks, and benefits of the procedure were reviewed, and the patient wishes to proceed. Informed consent has been obtained. The LEFT side was marked. All questions were answered to the patient's satisfaction. Proceed with surgery. Cefepime and Gentamicin jason-op Abx. The patient's history and physical exam have been reviewed and completed. There has been no intervalchange from that of the pre-operative history and physical exam performed within the last 30 days. documented in this encounter Miscellaneous Notes Plan of Care - Janell Tinsley, OT - 11/08/2018 2:17 PM EDT Occupational Therapy Evaluation Pertinent History of Current Problem: 57 y.o. female presenting pod#1 after Left PCNL Precautions/Restrictions: (at risk for falls ) Precautions Comments: Elliott, nephrostomy tube Assessment: Pt has been seen for occupational therapy evaluation, please refer to associated flowsheet data listed below for details. Blossomfela Samayoa presents with the following performance skill deficits and client factors: decreased balance and decreased flexibitly. These performance deficits have led to activity limitations and participation restrictions in the following areas of occupation: dressing, bathing, toileting, mobility, transferring, rest/sleep, home management, roles/routines, leisure, driving, community mobility, and social participation. However, despite the deficits listed above pt demonstrates the ability to perform transfers with conditional independence for use of cane. Pt ambulated without concern and no signs of LOB. Pt performed LB dressing routines with adaptive equipment. Anticipate that pt will return home with assistance once medically ready. Do not anticipate further OT needs while hospitalized. Staff Recommendations: Encourage OOB activity and participation in all self care tasks Anticipated Discharge Disposition: home with assist Pager: [phone] Janell Tinsley OT 11/08/2018 Occupational Therapy Rehabilitation Department 11/08/18 0323 Rehab Evaluation Document Type evaluation Total Evaluation Minutes, Occupational Therapy 30 (low complexity evaluation and 1 SC) Patient Effort excellent Symptoms Noted During/After Treatment none General Information Patient Profile Review other (see comments) Patient/Family/Caregiver Comments/Observations My sister is going to help me, she is a retired RN. General Observations of Patient Pt sitting EOB pre and post session; at end of session Pt with RN Pertinent History of Current Problem 57 y.o. female presenting pod#1 after Left PCNL Hearing Precautions/Limitations WFL Precautions/Restrictions (at risk for falls ) Precautions Comments Elliott, nephrostomy tube Treatment Number OT 1 Living Environment Patient population Adult Living Environment Living Environment Comment Pt lives alone in an apartment. Pt reports 4 CAPO with bilateral rails (too wide to reach) Pt reports one level. Pt has tub/shower with chair and grab bar outside of the tub. Functional Level Prior Prior Functional Level Comment Pt uses a wide based cane typically at baseline and has a quad cane for in her bathroom, otherwise Pt uses wide rollator around her house. Pt independent with ADL routines. 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 Cognitive Assessment Interventions Behavior/Mood Observations (Cognitive) alert;cooperative Orientation Status (Cognitive) oriented x 4 Attention (Cognitive) WNL/WFL Follows Commands/Answers Questions (Cognitive) 100% of the time;able to follow multi-step instructions Pain Scale/Rating Pain Assessment Scale Numbers (Numeric Rating Pain Scale) Pain Level 1 (0 at rest; 1 at incision site L flank area ) ROM (Range of Motion) Additional Documentation General Assessment (Group) General Range of Motion no range of motion deficits identified MMT (Manual Muscle Testing) Additional Documentation General Assessment (Group) General Assessment General Manual Muscle Testing Assessment no strength deficits identified Bed Mobility Assessment/Treatment Comment (Bed Mobility) Pt sitting EOB pre session Transfer Assessment/Treatment Aag-Muyjg-Ogj Assistive Device (Transfers) straight cane Impairments (Transfers) strength decreased;balance impaired Comment (Transfers) Pt using person cane with wide base; required assistance for bag and IV management [place] (Stand-Sit Transfers) conditional independence [place] (Sit-Stand Transfers) conditional independence Gait Assessment/Treatment Impairments (Gait) balance impaired Assistive Device (Gait) straight cane [place] (Gait) conditional independence Distance in Feet (Gait) ~90 Comment (Gait) Pt required assistance for bag and IV management; otherwise ambulated with cane support only ADL Assessment/Intervention Additional Documentation Lower Body Dressing Assessment/Training (Group) Lower Body Dressing Assessment/Training Assistive Devices (LB Dressing) 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 Pt educated on equipment and verbalized understanding. Plan of Care Review Plan Of Care Reviewed With patient Clinical Impression Criteria for Skilled Therapeutic Interventions Met yes;treatment indicated Therapy Frequency evaluation only Anticipated Discharge Disposition home with assist 2017 OT Evaluation Code Rationale: ?? Diagnosis & Pertinent Co-Morbidities affecting Plan of Care: see PMHx ?? Occupational Profile & Client History: Brief Expanded Extensive x ?? Assessment of Occupational Performance: 1-3 performance deficits 3-5 performance deficits x 5 + performance deficits ?? Clinical Decision Making: Low Moderate High x Clinical decision making of low complexity using standardized patient assessment instrument and measurable assessment of functional outcome. Consult Note - Kadi Rey RN - 11/08/2018 1:54 PM EDT Images from the original note were not included. Certified Wound Care Nurse Note Situation: Asked to see Blossom Samayoa by Avani Huynh PA for nonhealing wound from PCNL last month on right flank. Background: eD-H notes reviewed for history, admitting diagnosis and active problem list. Wound Assessment and Care Provided: Patient seen this afternoon in the short stay unit, her sister Mona was present, Mona was an RN and helps Sakshi at home. Wound has been present for a month, patient states MD instructed her not to put anything on the wound, this has caused the wound to stick to clothing and bedding. She was using a telfa for awhile. This week started using Mepilex Border dressings which has been helping. Wound on the right flank is with yellow base, no noted drainage, pink periwound. Disposable curette used to excisionally debride some of the yellow slough and some of the dried exudate on the wound edges. Cleansed with dermal wound cleanser, Nelson applied and covered with a Mepilex Border dressing. Patient states the edges roll on the Mepilex Border dressing, discussed using skin prep or Medipore tape to avoid this. Discussed keeping blood sugars below 140 for optimal healing. Discussed eating protein, vitamin C and zinc for wound healing. Also discussed moist wound healing, that the wound will benefit from not being too dry or too wet. The following picture was taken of the wound: Right flank: Lars Score: 20 Last Pressure Ulcer Prevention assessment: Shift Pressure Injury Prevention Occiput: No Injury Thoracic Spine: No Injury Sacral: No Injury Ischial - left: No Injury Ischial - right: No Injury Heel - left: No Injury Heel - right: No Injury Elbow - left: No Injury Elbow - right: No Injury Device Sites: O2 sat monitor, SCD's/venodynes, IV sites, elliott Other Sites: LEFT NEPH TUBE Existing Wounds: Wound Right flank (Active) Dressing Appearance no drainage 11/08/2018 1:52 PM Base yellow 11/08/2018 1:52 PM Area pink 11/08/2018 1:52 PM Wound Length (cm) 1.2 cm 11/08/2018 1:52 PM Wound Width (cm) 1 cm 11/08/2018 1:52 PM Wound Depth (cm) 0.1 cm 11/08/2018 1:52 PM Wound Surface Area (cm^2) 1.2 cm^2 11/08/2018 1:52 PM Wound Volume (cm^3) 0.12 cm^3 11/08/2018 1:52 PM Drainage Amount none 11/08/2018 1:52 PM Wound Interventions wound cleanser SAF-Clens AF 11/08/2018 1:52 PM Dressing dressing removed;dressing applied;foam;Medihoney 11/08/2018 1:52 PM Periwound Care barrier film applied 11/08/2018 1:52 PM Nutritional Status Wt Readings from Last 1 Encounters: 09/27/18 (!) 137.4 kg (303 lb) There is no height or weight on file to calculate BMI. Labs Lab Results Component Value Date ALBUMIN 3.9 07/22/2018 ALBUMIN 3.8 07/09/2018 HA1C 7.8 (H) 07/10/2018 WBC 14.1 (H) 11/08/2018 WBC 7.8 11/07/2018 WBC 10.3 (H) 09/30/2018 HGB 11.1 (L) 11/08/2018 HGB 10.9 (L) 11/07/2018 HGB 10.1 (L) 09/30/2018 HCT 33.8 (L) 11/08/2018 HCT 33.9 (L) 11/07/2018 HCT 32.7 (L) 09/30/2018 Nutritional Intake Nutrition Assessments Diet/Feeding Assistance: none Diet/Feeding Tolerance: good Intake (%): 100% Fluids: adequate Fluids Requirement: PO/IVF Current bed: [facility] Assessment: Patient with a slow to heal wound from a nephrostomy tube. Wound bed with adherent yellow slough, Medihoney applied to assist with autolytic debridement. Diabetes may be hindering wound progress. Wound Care Recommendations: Right flank wound: Medihoney Gel and Mepilex Border - change dressing every, Sunday, Sunday, Sunday and as needed for dressing with 50% or greater strike though drainage. 1. Cleanse wound with dermal wound cleanser. 2. Apply No-Sting skin prep to intact jason wound skin. 3. Apply Medihoney to the wound bed. 4. Cover with an Alldress Dressing or Mepilex Border. After discharge, follow up with: [facility]. Discussed plan with: /LYNETTE/PA: Avani Huynh Please contact KADI REY RN on pager [phone] or the wound care team at [phone] or pager [phone] skin and wound care concerns or questions. Med Student Progress Note - Betsy Gaming - 11/08/2018 11:06 AM EDT Urology Inpatient Progress Note Date: 11/08/2018 Patient: Blossom Samayoa Admit Date: 11/07/2018 Hospital Day: 1 Problem List Active issues: Nephrolithiasis 24 Hour Events/Subjective: -No acute overnight events. -Patient has no complaints and has doing great compared to previous hospitalization. -Pain well controlled at a 3-out-of-10. -No issues with appetite, tolerating broth. -Urinating without issues. -Has not passed flatus nor has had a BM as of yet. -Denies fever, chills, chest pain, SOB, cough, n/v. -Ambulating, no issues with positional changes. Objective: Last value Range last 24 hrs Temperature Temp: 37 ??C (98.6 ??F) Temp: [36.3 ??C (97.3 ??F)-37 ??C (98.6 ??F)] Heart Rate Heart Rate: 73 Heart Rate: [58-84] Blood Pressure BP: 153/89 BP: (102-153)/(44-107) Respiratory Rate Resp: 16 Resp: [10-22] SpO2 SpO2: 98 %(stable vitals, asymptomatic) SpO2: [94 %-100 %] Intake & Output IN: PO:1.3 L, IV:1.2 L OUT: Elliott 3.8 L NET: -1.3 L Physical Exam: GEN: Patient resting comfortably in bed and in no acute distress. CV: RRR, normal S1/S2, no murmurs, rubs, or gallops appreciated. RESP: CTAB, no rales, wheezing, or rhonchi. ABD: Obese, normal bowel sounds, soft, NT/ND : Nephrostomy tube in place, dressing over nephrostomy tube over left flank is c/d/i. Elliott catheter in place. Clear pink-red output coming from both tubes, Elliott>nephrostomy tube. EXT: Warm, perfused. No lower extremity edema bilaterally Laboratory (Last 24 Hours): -CBC notable for WBC of 14.1, increased from 7.8 on 11/07. -Hgb/Hct 11.1/33.8, increased from 10.9/33.9 on 11/07. -BMP stable -Ca down-trending at 9.9, from 10.6 on 11/07 Microbiology: Body fluid culture 11/08/2018 at 08:15AM: No growth to date Stone Culture 11/08/2018 at 10:09AM: No anaerobic organisms isolated Radiology: CT ABDOMEN AND PELVIS WO CONTRAST at 11/08/2018 6:15 AM 1. Emani catheter withdrawn out of the kidney but attached to the [place]. The Pollack catheter tip is at the proximal ureter. 2. No residual calculus. 3. Stable ventral wall hernia containing small bowel. 4. Diverticulosis. Assessment: Blossom Samayoa is a 57-year-old female w/ history of nephrolithiasis who is one day post-Op s/p left PCNL. Ms. Samayoa has been doing exceptionally well compared to her previous stay, where she had undergonea right PCNL, that complicated by bacteremia and UTI (+ for pseudomonas and proteus mirabilis). Her vital signs remained stable throughout the night. She did not exhibit any signs concerning for infection. Her pain was well controlled. Additionally, she has been making an adequate amount of urine. There were no residual stones per CT abd/pelvis. Her cultures were negative for growth. Her WBC count of14.1 is likely to be a combination of inflammation from the procedure and possibly her previous infection (as she has been on an extended course of antibiotics for 2 weeks leading up to the procedure). We plan to discharge Ms. Samayoa today given her progress. We will also remove her Elliott catheter and nephrostomy tube. She will be going home with a 5 day course of keflex given her elevated WBC count. She is to follow up with her PCP in 1-2 weeks and with Urology in 4-6 weeks time. Plan: Neuro/Pain: PO Tylenol, amitriptyline, gabapentin, oxycodone, ibuprofen CV: (managed by ) Home aspirin, carvedilol, lisinopril, lipitor, spironolactone PULM: resume home levalbuterol PRN GI: Resume home dulaglutide, metformin, ellipta. Docusate, odansetron PRN : Remove elliott catheter and nephrostomy tube. Follow up in 4-6 weeks. FEN: BMP stable. Carb control diet. DC'd ISS, resume usual diabetes regimen. ID: 5 day course of Keflex 500 mg QID Heme: Hgb/Hct stable Prophylaxis: SCDs for DVT ppx Disposition: No issues. Going home today, with antibiotics. Betsy Gaming MSIII 11/08/2018 Plan of Care - Brian Moulton, PT - 11/08/2018 9:31 AM EDT Physical Therapy Evaluation Pertinent History of Current Problem: 57 y.o. female presenting pod#1 after Left PCNL Precautions/Restrictions: (none) Assessment: Pt presents to PT with postop pain, decreased balance and endurance - PT addressed mobility techniques for oob and assessed gait. Wide jonathan and in need of cane for mobility due to imbalance and postural sway with walking. Pt modified indep and safe for d/c home today when medically stable. Will need OT adaptive equipment. No home PT needs or other PT equipment needs. Please see associated flow sheet data below for objective information regarding today's session Staff Mobility Recommendations: Supervision with cane Anticipated Discharge Disposition: (S) home with assist(has sister, does not need PT) BRIAN MOULTON, PT Pager: [phone] Inpatient Physical Therapy 2017 PT Evaluation Code Rationale: ?? Diagnosis & Pertinent Co-Morbidities, personal factors, and present illness affecting Plan ofCare: Patient Active Problem List Diagnosis Code ??? [...] use Z79.891 ??? Renal calculus, left N20.0 Additional personal factors or co-morbidities that impact plan: ?? Total # of Factors: 0 1-2 3+ x ?? Examination of body system impairments, functional limitations and behaviors, and/or participation restrictions. Addressing 1-2 elements x Addressing 3 + elements Addressing 4 + elements ?? Clinical presentation: See assessment above. Stable/Uncomplicated Evolving/Fluctuating Symptoms Unstable/Unpredictable x ?? Clinical decision making of low complexity based on pt's functional performance as outlined in this evaluation. 11/08/18 0844 Rehab Evaluation Document Type evaluation Total Evaluation Minutes, Physical Therapy 26 (eval only) Patient Effort excellent Symptoms Noted During/After Treatment none General Information Patient Profile Review yes Patient/Family/Caregiver Comments/Observations Pt reports ready to go home, has her sister here withher. Pertinent History of Current Problem 57 y.o. female presenting pod#1 after Left PCNL Precautions/Restrictions (none) Treatment Number PT 1 Functional Level Prior Prior Functional Level Comment Use of cane at home and outdoors. Vital Signs SpO2 98 % (stable vitals, asymptomatic) Pain Scale/Rating Pain Assessment Scale Numbers (Numeric Rating Pain Scale) Pain Level 3 Bed Mobility Assessment/Treatment [place]es [place] (Bed Mobility) conditional independence Impairments (Bed Mobility) strength decreased Safety Issues (Bed Mobility) impaired trunk control for bed mobility Transfer Assessment/Treatment Bed-Chair [place] (Transfers) conditional independence Chair-Bed [place] (Transfers) conditional independence;verbal cues required Ger-Xemni-Eph Assistive Device (Transfers) straight cane (cues for positioning) Gait Assessment/Treatment [place] (Gait) conditional independence Assistive Device (Gait) straight cane (assist with IV pole, catheter, neph bag) Distance in Feet (Gait) 90 Gait Pattern Analysis swing-through gait Deviations (Gait) (wide stance, increase lateral sway) Impairments (Gait) balance impaired Clinical Impression Therapy Frequency evaluation only Anticipated Equipment Needs at Discharge (none, just OT adaptive equipment) Anticipated Discharge Disposition home with assist (has sister, does not need PT) Plan of Care - Ginny Sanchez RN - 11/08/2018 1:44 AM EDT Problem: Patient Care Overview Goal: Plan of Care Review Outcome: Ongoing (Interventions Implemented as Appropriate) 11/08/18 0143 Plan of Care Review Progress progress toward functional goals as expected Coping/Psychosocial Plan Of Care Reviewed With patient S/P: PCNL Left renal stones Neph tube left flank Outcome Summary: VSS. Left neph tube site CDI - bulky gauze dressing; scant dry drainage area marked; no change overnight. Neph tube patent and output WDL, sanguinous. Elliott in place, UOP WDL, color pink. Mepilex dsg right flank from prior neph tube site is in place and intact. Pt caitlin PO. Pain tx scheduled and PRN. Ambulated in hallway using str cane, one-assist, no difficulty. Plan: Ongoing monitoring/assessments. I/O. Pain tx. CT planned for 0500. Lab results pending. INDIVIDUALIZED FALL PREVENTION: STR CANE 1 ASSIST Assistance: Assisted with bed mobility to find comfortable position, will assist when OOB as needed. Supervision: Stand-by assist with initial ambulation and supervised activity as needed. Surveillance: Continuous pulse ox, call leigh within reach, purposeful rounding Plan of Care - Sakshi Washingtno RN - 11/07/2018 6:45 PM EDT Problem: Patient Care Overview Goal: Plan of Care Review OUTCOME EVALUATION NOTE: OUTCOME SUMMARY: Patient has rested between care since arriving to the unit. Pain adequately controlled with scheduled and PRN pain meds (see MAR). Patient ambulating in the hallway with assistance. Nephrostomy tube output is concentrated red urine. Elliott catheter output is light red urine. Slow healing wound from previous nephrostomy covered with mepilex. No signs or symptoms of acute distress at this time. Will continue to monitor. PLAN MOVING FORWARD: Pain control, monitor Elliott and nephrostomy output, CT scan in AM, PT/OT consult, discharge planning INDIVIDUALIZED FALL PREVENTION INTERVENTIONS: Patient-specific fall risk factors per assessment: [current deficits]: Generalized weakness, obesity, narcotics, Elliott & nephrostomy tubes Assistance [level of assistance required for transfers and ambulation]: 2 assist, cane Supervision [direct monitoring required during toileting and ADLs]: Hands on, eyes on Surveillance [continuous indirect monitoring]: Pulse oximetry, purposeful rounding Patient-specific fall prevention interventions for sensory deficits provided, if applicable: [X] N/A CPG GOAL OUTCOME EVALUATION: Op Note - Corby Jose MD - 11/07/2018 2:08 PM EDT [facility] [place] Patient Name: Blossom Samayoa : [id number] MR#: [id number] Case Date: 11/07/2018 Surgeon: Surgeon(s) and Role: * Meghana Galvin Jr., MD - Primary * Corby Jose MD - Resident Preoperative diagnosis: LEFT RENAL STONES Postoperative diagnosis: LEFT RENAL STONES Procedure(s) (LRB): NEPHROLITHOTOMY, (PCNL) PERCUTANEOUS, OVER 2CM (WRVU 23.5) (Left) NEPHROSTOMY CATHETER, PERC, INC DX NEPHROSTOGRAM/URETEROGRAM, IMG GUIDANCE (WRVU 4.25) (Left) CYSTOURETEROSCOPY, DIAGNOSTIC (WRVU 5.75) (Left) MODIFIER HOLMIUM LASER (N/A) ULTRASOUND USE (WRVU 0.63) (Left) FLUOROSCOPY (WRVU 0.17) (N/A) RENAL ENDOSCOPY W\FULG, W\WO\BX, VIA NEPHROSTOMY (WRVU 6.61) (Left) Findings: 1. Normal bladder, b/l orthotopic UOs 2. Large renal stone and several smaller stones seen in lower pole calyx on retrograde ureteroscopy,>2cm total stone burden 3. Lower pole calyx targeted for access with ultrasound guidance 4. Stones fragmented and removed with Lithoclast 5. No stones seen on mapping pyeloscopy or antegrade ureteroscopy 6. Fulguration of bleeding vessels in access tract done using bugbee 7. 7 Fr ureteral stent placed in antegrade fashion 8. 24 nephrostomy placed via access tract Anesthesia: General Estimated Blood Loss: 150cc Specimens removed during surgery: Left renal stones for analysis and culture Drains: -24 Fr Emani Left nephrostomy tube with 5 Fr pollack re-entry catheter -18 Fr elliott -7 Fr variable length Left ureteral stent Surgical Closure: no incision Disposition: awakened from anesthesia, extubated and taken to the recovery room in a stable condition, having suffered no apparent untoward event. Condition: doing well without problems (Please see the Surgical Encounter Summary for any Implant and Specimen details pertinent to this patient.) HPI/Surgical Indications: Blossom Samayoa??is a 57 y.o.??female??who returns for right??ureteral stent removal after undergoing right PCNL.?She had been??admitted to the Medicine Service on 07/09/2019 for nausea, vomiting, leukocytosis and UTI. CT showed right hydronephrosis, large??right UPJ stone and obstructing??right UVJ stone, as well as a large left renal stone burden which was non-obstrcuting. Urology took her to the OR and placed a right ureteral stent with Dr. Sears on 07/09/2019. Urine cultures from [facility] showed Proteus Mirabilis. Blood cultures at [facility] showed no growth. He was discharged on [...] 2 week course of iv cefepime. ?? Presents to OR today for planned Left PCNL. Has continued to be off ASA 81mg. Has been on Keflex course for recent positive urine culture. Procedure Description: The patient was identified in the pre-operative holding area. Consent was verified. The correct sideof the procedure was marked. The patient was taken to the operating room and placed supine on the operating table. General anesthesia was induced. The patient was then moved to the prone position, and the patient's perineum, flank, and back were prepped and draped in the usual sterile fashion. All pressure point were adequate padded to prevent neurapraxic injury. A timeout was performed involving allmembers of the OR team confirming the patient's identity and planned procedure. Preoperative antibiotics were administered. ? A flexible cystoscope was passed through the urethra and into the bladder under direct vision. The Left ureteral orifice was cannulated with a 5 Fr Pollack catheter. A guide wire was advanced via the catheter under fluoroscopic guidance and seen to pass to the renal pelvis. The pollack catheter was removed and a second wire inserted via the cystoscope and into the ureter. The cystoscope was removed over the wires. Next, over one of the indwelling wires, a flexible ureteroscope was advanced up to therenal pelvis under fluoroscopy. The large Left renal stone was identified in the lower pole calyx with several smaller stones. Inspection of the rest of the kidney revealed no other stone burden. ? The lower pole calyx was identified with ultrasound and then targeted and entered using a needle. After confirming calyceal entry with direct visualization, the inner sheath of the needle was removed and a glide wire was advanced. The glide wire was passed without difficulty past the UPJ and guided down the ureter to the bladder and out the urethra. An angiographic catheter was passed over the wire to exchange it for an Amplatz Super Stiff guide wire, which was used as the safety wire for percutaneous access. The 8/10 Fr dilator was passed over the Super Stiff wire. The inner obturator of the dilator was removed, and a second glide wire was advanced into the renal pelvis and down the ureter to the bladder in the same fashion. This was similarly exchanged for a Super Stiff wire. An 18 Fr urethral catheter was then inserted to drain the bladder. A NephroMax high pressure nephrostomy balloon catheter was advanced with the tip positioned in the calyx. The balloon was then inflated up to a pressure of 14 shirin. The 30 Fr access sheath was passed over the balloon to maintain the percutaneous tract. The rigid nephroscope was advanced via the tract into the collecting system. The stones were visualized in the lower pole calyx. The LithoClast Select System was used for fragmentation. Smaller pieces were removed using the two-pronged grasper. Lithotripsy continued until all visible stone material had been cleared. The rigid nephroscope was exchanged for the flexible nephroscope, which was used to inspect the remainder of the renal collecting system. Using pyelocaliceal mapping, remaining stone fragments and clot were removed using a basket. The nephroscope was removed. ?? The flexible ureteroscope was then advanced through the sheath and down the ureter. No additional stone fragments were seen. Once the entire ureter had been inspected, the kidney was inspected to ensure no residual fragments. A glide wire was passed via the ureteroscope, and the ureteroscope was removed. ? The nephroscope was back-loaded over the glide wire and advanced into the renal pelvis. A 7 Fr variable length double-J ureteral stent was passed over the wire and down the ureter under fluoroscopic guidance. The proximal curl was confirmed to be in the renal pelvis, and the distal curl in the bladder. The nephroscope was removed. A 24 Fr Joppa catheter was passed over the working Super Stiff guide wire into the renal pelvis under fluoroscopic guidance. Contrast was again instilled to ensure adequate placement. A Pollack catheter was inserted via the Emani catheter to be used as a safety re-entry catheter. The Ainsworthcatheter was secured to the skin using two 0 silk sutures. The guide wire was removed from the Joppa and Pollack catheter combination. 20 mL 1% lidocaine with epinephrine solution was injected at and around the access site for local anesthesia. The remaining safety wire was removed. The nephrostomy site was dressed with dry sterile gauze. The nephrostomy tube and Elliott catheter were connected to gravity drainage. Fluoroscopic assessment of the fully expanded Left lung was performed. No pneumothorax, effusion, orother acute cardiopulmonary abnormality was seen. ?? The patient tolerated the procedure well and was moved to the supine position before being awakened from anesthesia with no adverse events. A sponge and instrument count was performed and the counts were correct. The patient was taken to the recovery area in stable condition. Dr. Galvin, the attending surgeon, was present for the entire procedure. Infection Bundle used? N/A Associated attestation - Meghana Galvin Jr., MD - 11/07/2018 6:25 PM EDT Attestation: Case Date: 11/07/2018 I was present and I participated during the entire procedure MEGHANA GALVIN JR, MD 11/07/2018 Brief Op Note - Corby Jose MD - 11/07/2018 1:46 PM EDT Brief Operative Note Patient Name: Blossom Samayoa : [id number] MR#: [id number] Case Date: 11/07/2018 Surgeon: Surgeon(s) and Role: * Meghana Galvin Jr., MD - Primary * Corby Jose MD - Resident Preoperative diagnosis: LEFT RENAL STONES Postoperative diagnosis: LEFT RENAL STONES Procedure(s) (LRB): NEPHROLITHOTOMY, (PCNL) PERCUTANEOUS, OVER 2CM (WRVU 23.5) (Left) NEPHROSTOMY CATHETER, PERC, INC DX NEPHROSTOGRAM/URETEROGRAM, IMG GUIDANCE (WRVU 4.25) (Left) CYSTOURETEROSCOPY, DIAGNOSTIC (WRVU 5.75) (Left) MODIFIER HOLMIUM LASER (N/A) ULTRASOUND USE (WRVU 0.63) (Left) FLUOROSCOPY (WRVU 0.17) (N/A) RENAL ENDOSCOPY W\FULG, W\WO\BX, VIA NEPHROSTOMY (WRVU 6.61) (Left) Anesthesia: General Findings: 1. Normal bladder, b/l orthotopic UOs 2. Large renal stone and several smaller stones seen in lower pole calyx on retrograde ureteroscopy,>2cm total stone burden 3. Lower pole calyx targeted for access with ultrasound guidance 4. Stones fragmented and removed with Lithoclast 5. No stones seen on mapping pyeloscopy or antegrade ureteroscopy 6. Fulguration of bleeding vessels in access tract done using bugbee 7. 7 Fr ureteral stent placed in antegrade fashion 8. 24 nephrostomy placed via access tract Complications: none Estimated Blood Loss: 150cc Specimens removed during surgery: Left renal stones for analysis and culture Fluids: see anesthesia record PRBCs: none Urine Output: not recorded Drains: -24 Fr Joppa Left nephrostomy tube with 5 Fr pollack re-entry catheter -18 Fr elliott -7 Fr variable length Left ureteral stent Disposition: awakened from anesthesia, extubated and taken to the recovery room in a stable condition, having suffered no apparent untoward event. Condition: doing well without problems (Please see the Surgical Encounter Summary for any Implant and Specimen details pertinent to this patient.) Infection Bundle used? N/A Plan: -admit to Urology for observation -jason-op Cefepime -CBC and BMP in PACU -ADAT to regular -CT A/P in AM POD#1 -ureteral stent for 7-[address] negative Associated attestation - Meghana Galvin Jr., MD - 11/07/2018 6:24 PM EDT I was present and I participated during the entire procedure. documented in this encounter Plan of Treatment Upcoming Encounters Date Type Specialty Care Team Description 03/15/2022 Office Visit Neurology Ryann Barfield APRN [facility] [place] [address] 03/23/2022 Appointment Radiology Hailey Mcclendon MD [facility] [address] [place] [address] 03/23/2022 Laboratory Appointment Lab 03/23/2022 Office Visit Gastroenterology Hailey Mcclendon MD [facility] [address] [place] [address] 05/23/2022 Procedure visit Maxillofacial Surgery Corby Montes MD [facility] [address] [place] [address] documented as of this encounter Procedures Procedure Name Priority Date/Time Associated Comments Diagnosis POCT GLUCOSE Routine 11/08/2018 11:41 Results for this AM EDT procedure are i n the results section. POCT GLUCOSE Routine 11/08/2018 6:58 AM Results f or this EDT procedure are i n the results section. CT ABDOMEN AND PELVIS Routine 11/08/2018 5:19 AM Results for this WO CONTRAST EDT procedure are i n the results section. HEMOGRAM Timed 11/08/2018 1:56 AM Results f or this EDT procedure are i n the results section. DIFFERENTIAL, Timed 11/08/2018 1:56 AM Results for this AUTOMATED EDT procedure are i n the results section. CBC (WITH DIFF) Timed 11/08/2018 1:56 AM EDT BASIC METABOLIC PANEL Timed 11/08/2018 1:56 AM Results for this (NON-FASTING) EDT procedure are in the results section. POCT GLUCOSE Routine 11/07/2018 9:34 PM Results f or this EDT procedure are i n the results section. POCT GLUCOSE Routine 11/07/2018 4:32 PM Results f or this EDT procedure are i n the results section. HEMOGRAM STAT 11/07/2018 2:35 PM Results f or this EDT procedure are i n the results section. DIFFERENTIAL, STAT 11/07/2018 2:35 PM Results for this AUTOMATED EDT procedure are i n the results section. CBC (WITH DIFF) STAT 11/07/2018 2:35 PM EDT BASIC METABOLIC PANEL STAT 11/07/2018 2:35 PM Results for this (NON-FASTING) EDT procedure are in the results section. KIDNEY STONE ANALYSIS Routine 11/07/2018 2:00 PM Results for this EDT procedure are i n the results section. POCT GLUCOSE Routine 11/07/2018 1:59 PM Results f or this EDT procedure are i n the results section. XR FLUORO NO RAD <1HR Routine 11/07/2018 1:46 PM Results for this - OR USE EDT procedure are i n the results section. ANAEROBIC CULTURE Routine 11/07/2018 1:02 PM Resu lts for this EDT procedure are i n the results section. BODY FLUID CULTURE, Routine 11/07/2018 1:02 PM AEROBIC & ANAEROBIC EDT BODY FLUID CULTURE, Routine 11/07/2018 1:02 PM Re sults for this AEROBIC EDT procedure are i n the results section. POCT GLUCOSE Routine 11/07/2018 12:57 Results for this PM EDT procedure are i n the results section. RENAL ENDOSCOPY 11/07/2018 11:14 LEFT RENAL STONES W\FULG, W\WO\BX, VIA AM EDT NEPHROSTOMY (WRVU 6.61) FLUOROSCOPY (WRVU 11/07/2018 11:14 LEFT RENAL STONES 0.17) AM EDT ULTRASOUND USE (WRVU 11/07/2018 11:14 LEFT RENAL STONE S 0.63) AM EDT MODIFIER HOLMIUM 11/07/2018 11:14 LEFT RENAL STONES LASER AM EDT CYSTOURETEROSCOPY, 11/07/2018 11:14 LEFT RENAL STONES DIAGNOSTIC (WRVU AM EDT 5.75) NEPHROSTOMY CATHETER, 11/07/2018 11:14 LEFT RENAL STON ES PERC, INC DX AM EDT NEPHROSTOGRAM/URETERO GRAM, IMG GUIDANCE (WRVU 4.25) NEPHROLITHOTOMY, 11/07/2018 11:14 LEFT RENAL STONES (PCNL) PERCUTANEOUS, AM EDT OVER 2CM (WRVU 23.5) POCT GLUCOSE Routine 11/07/2018 10:08 Results for this AM EDT procedure are i n the results section. ABORH RECHECK STATUS Routine 11/07/2018 8:57 AM R esults for this EDT procedure are i n the results section. ABO/RH TYPING Routine 11/07/2018 8:57 AM Results for this EDT procedure are i n the results section. ANTIBODY SCREEN Routine 11/07/2018 8:57 AM Result s for this EDT procedure are i n the results section. documented in this encounter Results POCT Glucose (11/08/2018 11:41 AM EDT) athologist Signature POC Glucose 173 65 - 199 [facility] mg/dL [facility] Comment: Supplemental ranges: <140 mg/dL before meals <180 mg/dL all other times of the day Specimen Anatomical Collection Method Collection Time Receive d Time (Source) Location / / Volume Laterality Blood specimen 11/08/2018 11:41 9 (specimen) AM EDT 11:41 AM EDT Meghana Galvin Jr., MD POINT OF CARE TEST ORDERABLE S Performing Organization Address City/State/ZIP Code Phon e Number [place] [id number] POCT Glucose (11/08/2018 6:58 AM EDT) P athologist Signature POC Glucose 191 65 - 199 [place] mg/dL [facility] Comment: Supplemental ranges: <140 mg/dL before meals <180 mg/dL all other times of the day Specimen Anatomical Collection Method Collection Time Receive d Time (Source) Location / / Volume Laterality Blood specimen 11/08/2018 6:58 AM 019 6:58 (specimen) EDT AM EDT Meghana Galvin Jr., MD POINT OF CARE TEST ORDERABLE S Performing Organization Address City/State/[place] [address] Abdomen & Pelvis wo Contrast (11/08/2018 5:19 AM EDT) Anatomical Region Laterality Modality Abdomen, Pelvis Computed Tomography Specimen (Source) Anatomical Location Collection Method / Collectio n Time Received Time / Laterality Volume Impressions 11/08/2018 6:44 AM EDT 1. ??Emani catheter withdrawn out of the kidney but attached to the [place]. The Pollack catheter tip is at the proxi mal ureter. 2. ??No residual calculus. 3. ??Stable ventral wall hernia containi ng small bowel. 4. ??Diverticulosis. Preliminary report signed by: MASHA BARRAZA at 11/08/2018 6:15 AM I have personally reviewed the image(s) and the residents interpretation and agree with the findings, Felicia treviño 11/08/2018 6:44 AM Thank you for letting us participate in the care of this patient. For questions regarding this report, please contact e number below. ? Electronically signed by: EDUARDO May [facility] ([phone]), at 11/08/2018 6:44 AM Narrative 11/08/2018 6:44 AM EDT EXAMINATION: CT ABDOMEN AND PELVIS WO CONTRAST CLINICAL HISTORY: s/p Left PCNL, assess for residual stone fragments TECHNIQUE: Helical CT of the abdomen and pelvis was performed without the use of intravenous contrast. ??Multiplanar refo rmatted images were generated. COMPARISON: CT abdomen pelvis without co ntrast dated 10/09/2018. FINDINGS: The absence of intravenous contrast limi ts the evaluation of solid viscera and vasculature. Right kidney/ureter: No collecting syste m dilation or calculi.. ??Interval removal of right ureteral stent. Left kidney/ureter: The Joppa drain is external to the kidney. The Pollick is withdrawn with a portion attached to the tip of the drains Emani. The polyp terminates of the proximal ureter. A double-J stent is through the ureter. No residual fragment is seen in the janet ecting system. Urinary Bladder: Decompressed with Fole y catheter. Lower chest: Bibasilar atelectasis. Atel ectasis is also seen in the right middle lobe. Liver: Normal. Bile ducts: Nondilated. Gallbladder: Absent with surgical clips in the gallbladder fossa. Pancreas: Normal attenuation without alexsandra britney dilatation. Spleen: Normal. Adrenals: Normal. Vasculature: No aneurysm. Lymph Nodes: No enlarged lymph nodes. Bowel: Nondilated loops of small and lar ge bowel. No wall thickening. Sigmoid diverticulosis without evidence of acute diverticulitis. The appendix is normal. There is a loop of small bowel within th e right-sided ventral hernia that is not dilated are decompressed. Peritoneum and mesentery: No ascites, fr ee air, or loculated fluid collection. No mesenteric inflammation. Abdominal wall: 5.8 cm ventral wall mary alice ia containing loops of small bowel. No bowel dilation or incarceration. Reproductive organs: Uterus is surgicall y absent. Osseous structures: Degenerative changes seen within the bilateral hips. Procedure Note Felicia Mari MD - 11/08/2018Formatt ing of this note might be different from the original. EXAMINATION: CT ABDOMEN AND PELVIS WO CO NTRAST CLINICAL HISTORY: s/p Left PCNL, assess for residual stone fragments TECHNIQUE: Helical CT of the abdomen and pelvis was performed without the use of intravenous contrast. Multiplanar reform atted images were generated. COMPARISON: CT abdomen pelvis without co ntrast dated 10/09/2018. FINDINGS: The absence of intravenous contrast limi ts the evaluation of solid viscera and vasculature. Right kidney/ureter: No collecting syste m dilation or calculi.. Interval removal of right ureteral stent. Left kidney/ureter: The Joppa drain is external to the kidney. The Pollick is withdrawn with a portion attached to the tip of the drains Joppa. The polyp terminates of the proximal ureter. A double-J stent is through the ureter. No residual fragment is seen in the janet ecting system. Urinary Bladder: Decompressed with Fole y catheter. Lower chest: Bibasilar atelectasis. Atel ectasis is also seen in the right middle lobe. Liver: Normal. Bile ducts: Nondilated. Gallbladder: Absent with surgical clips in the gallbladder fossa. Pancreas: Normal attenuation without alexsandra britney dilatation. Spleen: Normal. Adrenals: Normal. Vasculature: No aneurysm. Lymph Nodes: No enlarged lymph nodes. Bowel: Nondilated loops of small and lar ge bowel. No wall thickening. Sigmoid diverticulosis without evidence of acute diverticulitis. The appendix is normal. There is a loop of small bowel within th e right-sided ventral hernia that is not dilated are decompressed. Peritoneum and mesentery: No ascites, fr ee air, or loculated fluid collection. No mesenteric inflammation. Abdominal wall: 5.8 cm ventral wall mary alice ia containing loops of small bowel. No bowel dilation or incarceration. Reproductive organs: Uterus is surgicall y absent. Osseous structures: Degenerative changes seen within the bilateral hips. IMPRESSION 1. Emani catheter withdrawn out of t he kidney but attached to the Ogden. The Pollack catheter tip is at the proxi mal ureter. 2. No residual calculus. 3. Stable ventral wall hernia containing small bowel. 4. Diverticulosis. Preliminary report signed by: MASHA BARRAZA at 11/08/2018 6:15 AM I have personally reviewed the image(s) and the residents interpretation and agree with the findings, Felicia treviño 11/08/2018 6:44 AM Thank you for letting us participate in the care of this patient. For questions regarding this report, please contact [facility] number below. Electronically signed by: Felicia Mari [facility] ([phone]), at 11/08/2018 6:44 AM Meghana Galvin Jr., MD IMG CT ORDERABLES (ABNORMAL) Differential, Automated (11/08/2018 1:56 AM EDT) [facility] Method Time Signature Neutrophils % 85.0 % [facility] Neutr Abs (ANC) 12.01 (H) 1.70 - [facility] 6.10 [facility] x10(3)/[facility] LABORATORY Lymphocytes % 10.1 % [facility] Lymphocytes Abs 1.4 0.9 - 3.2 [facility] x10(3)/[facility] LABORATORY Monocytes % 4.3 % [facility] Monocyte Abs 0.6 0.3 - 0.9 [facility] x10(3)/[facility] LABORATORY Eosinophils % 0.0 % [facility] Eosinophils Abs 0.0 0.0 - 0.4 [facility] x10(3)/[facility] LABORATORY Basophils % 0.1 % [facility] Basophils Abs 0.0 0.0 - 0.1 [facility] x10(3)/[facility] LABORATORY Immature Gran % 0.50 % [facility] Comment: Immature granulocytes(IG's)percentage an d absolute count will include metamyelocytes, myelocytes, and promyelo cytes. Blood smears from CBCs yielding IG's will be scanned manually for concor dance. If this scan disagrees with the automated IG or if promyelocytes are not ed, a manual differential will be performed. Irina Gran Abs 0.07 (H) 0.00 - 0.04 x10(3)/[facility] LABORATORY Specimen Anatomical Collection Method Collection Time Receive d Time (Source) Location / / Volume Laterality Blood specimen 11/08/2018 1:56 AM 019 2:01 (specimen) EDT AM EDT Resulting Agency Comment Spec In Lab Corby Jose MD HEMATOLOGY ORDERABLES Performing Organization Address City/State/[place] [address] (ABNORMAL) Hemogram (11/08/2018 1:56 AM EDT) Analysis Performed At Patho logist Time Signature WBC 14.1 (H) 4.0 - 9.5 [facility] LABORATORY RBC 3.63 (L) 4.00 - [place] 5.21 [facility] x10(6)/[facility] LABORATORY Hemoglobin 11.1 (L) 11.7 - [facility] 15.[facility] gm/dL [facility] Hematocrit 33.8 (L) 35.7 - [place] 45.8 % [facility] MCV 93.1 82.6 - [facility] 94.4 [facility] LABORATORY MCH 30.6 27.1 - [place] 32.0 pg [facility] MCHC 32.8 31.7 - [facility] 35.0 gm/dL [facility] Platelets 251 145 - 357 [facility] x10(3)/[facility] LABORATORY RDWSD 43.0 37.0 - [facility] [place] 46.0 [facility] LABORATORY RDWCV 12.6 11.5 - [facility] [place] 14.1 % [facility] MPV 9.8 7.6 - 12.9 [facility] nRBC % Auto 0.0 % [facility] nRBC Abs Auto 0.000 0.000 - [facility] [place] 0.000 [facility] x10(3)/[facility] LABORATORY Specimen Anatomical Collection Method Collection Time Receive d Time (Source) Location / / Volume Laterality Blood specimen 11/08/2018 1:56 AM 019 2:01 (specimen) EDT AM EDT Resulting Agency Comment Spec In Lab Corby Jose MD HEMATOLOGY ORDERABLES Performing Organization Address City/State/[place] [address] (ABNORMAL) Basic Metabolic Panel (non-fasting) (11/08/2018 1:56 AM EDT) athologist Signature Glucose Lvl 211 (H) 65 - 199 [facility]dL [facility] Comment: Diabetes: >=200 mg/dL plus symp toms BUN 15 8 - 18 mg/dL [facility] Creatinine 0.74 0.70 - 1.20 mg/dL [facility] Sodium 136 135 - 145 mmol/L [facility] Potassium 4.9 3.5 - 5.0 mmol/L [facility] Comment: Please note: ??Patients with WBC >100,00 0 may have falsely elevated Potassium levels. ??For accurate Potassium quantif ication in these patients send serum separator tube (gold top) for subsequent determinations. ??Contact the Clinical Chemistry Laboratory if there are any qu estions. Chloride 103 98 - 107 mmol/L [facility] CO2 20 (L) 22 - 31 mmol/L [facility] Anion Gap 13 5 - 15 mmol/L [facility] Calcium 9.9 8.5 - 10.5 mg/dL [facility] Estimated GFR 89 >=60 mL/min/1.73 m?? [facility] Comment: The eGFR was calculated using the CKD-EP I equation. As with all creatinine based estimates of kidney function, eGFR values calculated with the CKD-EPI equation are not accurate in patients wi th acute kidney failure, extremes of body mass or the acutely ill. [email or web address] eGFR 104 >=60 mL/min/1.73 m?? [facility] Comment: The eGFR was calculated using the CKD-EP I equation. As with all creatinine based estimates of kidney function, eGFR values calculated with the CKD-EPI equation are not accurate in patients wi th acute kidney failure, extremes of body mass or the acutely ill. [email or web address] Specimen Anatomical Collection Method Collection Time Receive d Time (Source) Location / / Volume Laterality Blood specimen 11/08/2018 1:56 AM 019 2:01 (specimen) EDT AM EDT Resulting Agency Comment Spec In Lab Meghana Galvin Jr., MD CHEMISTRY ORDERABLES Performing Organization Address City/State/[place] [address] (ABNORMAL) POCT Glucose (11/07/2018 9:34 PM EDT) athologist Signature POC Glucose 225 (H) 65 - 199 [facility] mg/dL [facility] Comment: Supplemental ranges: <140 mg/dL before meals <180 mg/dL all other times of the day Specimen Anatomical Collection Method Collection Time Receive d Time (Source) Location / / Volume Laterality Blood specimen 11/07/2018 9:34 PM 019 9:34 (specimen) EDT PM EDT Meghana Galvin Jr., MD POINT OF CARE TEST ORDERABLE S Performing Organization Address City/[facility]/ZIP [facility] Phon e Number [address] POCT Glucose (11/07/2018 4:32 PM EDT) athologist [facility] POC Glucose 187 65 - 199 [facility]dL [facility] Comment: Supplemental ranges: <140 mg/dL before meals <180 mg/dL all other times of the day Specimen Anatomical Collection Method Collection Time Receive d Time (Source) Location / / Volume Laterality Blood specimen 11/07/2018 4:32 PM 019 4:32 (specimen) EDT PM EDT Meghana Galvin Jr., MD POINT OF CARE TEST ORDERABLE S Performing Organization Address City/[facility]/ZIP Code Phon e Number [address] Differential, Automated (11/07/2018 2:35 PM EDT) athologist [facility] Neutrophils % 60.3 % [facility] Neutr Abs (ANC) 4.71 1.70 - [facility] 6.10 [facility] x10(3)/[facility] LABORATORY Lymphocytes % 32.8 % [facility] Lymphocytes Abs 2.6 0.9 - 3.2 [facility] x10(3)/[facility] LABORATORY Monocytes % 4.1 % [facility] Monocyte Abs 0.3 0.3 - 0.9 [facility] x10(3)/[facility] LABORATORY Eosinophils % 2.2 % [facility] Eosinophils Abs 0.2 0.0 - 0.4 [facility] x10(3)/[facility] LABORATORY Basophils % 0.3 % [facility] Basophils Abs 0.0 0.0 - 0.1 [facility] x10(3)/[facility] LABORATORY Immature Gran % 0.30 % [facility] Comment: Immature granulocytes(IG's)percentage an d absolute count will include metamyelocytes, myelocytes, and promyelo cytes. Blood smears from CBCs yielding IG's will be scanned manually for concor dance. If this scan disagrees with the automated IG or if promyelocytes are not ed, a manual differential will be performed. Irina Gran Abs 0.02 0.00 - 0.04 x10(3)/[facility] LABORATORY Specimen Anatomical Collection Method Collection Time Receive d Time (Source) Location / / Volume Laterality Blood specimen 11/07/2018 2:35 PM 019 2:48 (specimen) EDT PM EDT Resulting Agency Comment Spec In Lab Corby Jose MD HEMATOLOGY ORDERABLES Performing Organization Address City/State/[place] [address] (ABNORMAL) Hemogram (11/07/2018 2:35 PM EDT) Analysis Performed At Patho logist Time Signature WBC 7.8 4.0 - 9.5 [facility] x10(3)/[facility] LABORATORY RBC 3.53 (L) 4.00 - [facility] 5.21 [facility] x10(6)/[facility] LABORATORY Hemoglobin 10.9 (L) 11.7 - [facility] 15.5 gm/dL [facility] Hematocrit 33.9 (L) 35.7 - [facility] 45.8 % [facility] MCV 96.0 (H) 82.6 - [facility] 94.4 fL [facility] MCH 30.9 27.1 - [facility] 32.0 pg [facility] MCHC 32.2 31.7 - [facility] 35.0 gm/dL [facility] Platelets 213 145 - 357 [facility] x10(3)/[facility] LABORATORY RDWSD 45.6 37.0 - [facility] 46.0 [facility] LABORATORY RDWCV 12.9 11.5 - [facility] 14.1 % [facility] MPV 10.4 7.6 - 12.9 [facility] LABORATORY nRBC % Auto 0.0 % [facility] nRBC Abs Auto 0.000 0.000 - [facility] 0.000 [facility] x10(3)/[facility] LABORATORY Specimen Anatomical Collection Method Collection Time Receive d Time (Source) Location / / Volume Laterality Blood specimen 11/07/2018 2:35 PM 019 2:48 (specimen) EDT PM EDT Resulting Agency Comment Spec In Lab Corby Jose MD HEMATOLOGY ORDERABLES Performing Organization Address City/State/[place] [address] (ABNORMAL) Basic Metabolic Panel (non-fasting) (11/07/2018 2:35 PM EDT) athologist Signature Glucose Lvl 165 65 - 199 [facility] mg/dL [facility] Comment: Diabetes: >=200 mg/dL plus symp toms BUN 14 8 - 18 mg/dL [facility] LABORATORY Creatinine 0.79 0.70 - 1.20 mg/dL [facility] LABORATORY Sodium 136 135 - 145 mmol/L [facility] Potassium 4.8 3.5 - 5.0 mmol/L [facility] Comment: Please note: ??Patients with WBC >100,00 0 may have falsely elevated Potassium levels. ??For accurate Potassium quantif ication in these patients send serum separator tube (gold top) for subsequent determinations. ??Contact the Clinical Chemistry Laboratory if there are any qu estions. Chloride 102 98 - 107 mmol/L [facility] CO2 21 (L) 22 - 31 mmol/L [facility] Anion Gap 13 5 - 15 mmol/L [facility] LABORATORY Calcium 10.6 (H) 8.5 - 10.5 mg/dL [facility] Estimated GFR 83 >=60 mL/min/1.73 m?? [facility] Comment: The eGFR was calculated using the CKD-EP I equation. As with all creatinine based estimates of kidney function, eGFR values calculated with the CKD-EPI equation are not accurate in patients wi th acute kidney failure, extremes of body mass or the acutely ill. [email or web address] eGFR 96 >=60 mL/min/1.73 m?? [facility] Comment: The eGFR was calculated using the CKD-EP I equation. As with all creatinine based estimates of kidney function, eGFR values calculated with the CKD-EPI equation are not accurate in patients wi th acute kidney failure, extremes of body mass or the acutely ill. [email or web address] Specimen Anatomical Collection Method Collection Time Receive d Time (Source) Location / / Volume Laterality Blood specimen 11/07/2018 2:35 PM 019 2:48 (specimen) EDT PM EDT Resulting Agency Comment Spec In Lab Meghana Galvin Jr., MD CHEMISTRY ORDERABLES Performing Organization Address City/State/ZIP Code Phon e Number [place] [id number] Kidney Stone Analysis (11/07/2018 2:00 PM EDT) Component Value Ref Test Analysis Performed At [facility] Range Method Time Signature Kidney Stone [place] Analysis Test ? Result ?Flag ??Unit ??RefValue [facility] Kidney Stone Analysis [facility] ??Source: ?Lef t Renal LABORATORY ??1st Constituent: ?60% Calcium phosphate (apatite) ??2nd Constituent: ?30% Calcium oxalate dihydrate ??3rd Constituent: ?10% Calcium oxalate monohydrate ? ADDITIONAL INFORMATION ------ ?This test was developed and its performance characteri stics ?determined by [facility] in a manner consistent with CLIA ?requirements. This test has not been cleared or approv ed by ?the U.S. Food and Drug Administration. ?Test Performed by: ?[facility] ?[address] [place] [address] Specimen Anatomical Collection Method Collection Time Receive d Time (Source) Location / / Volume Laterality Calculus 11/07/2018 2:00 PM 9 2:56 specimen EDT PM EDT (specimen) Resulting Agency Comment Spec In Lab Meghana Galvin Jr., MD BODY FLUIDS AND STOOLS ORDER ELINA Performing Organization Address City/State/ZIP Code Phon e Number [address] POCT Glucose (11/07/2018 1:59 PM EDT) P athologist Signature POC Glucose 150 65 - 199 [facility] mg/dL [facility] Comment: Supplemental ranges: <140 mg/dL before meals <180 mg/dL all other times of the day Specimen Anatomical Collection Method Collection Time Receive d Time (Source) Location / / Volume Laterality Blood specimen 11/07/2018 1:59 PM 019 1:59 (specimen) EDT PM EDT Meghana Galvin Jr., MD POINT OF CARE TEST ORDERABLE S Performing Organization Address City/State/[place] [address] XR Fluoro No Rad <1Hr - OR Use (11/07/2018 1:46 PM EDT) Specimen (Source) Anatomical Location Collection Method / Collectio n Time Received Time / Laterality Volume Narrative RAD - 11/07/2018 1:46 PM EDT This order does not need a radiologist i nterpretation. ?? Meghana Galvin Jr., MD IMG FLUORO ORDERABLES Performing Organization Address City/State/ZIP Code Phon e Number RAD [place], [place] Anaerobic Culture (11/07/2018 1:02 PM EDT) [facility] Method Time Signature Anaerobic No anaerobic [facility] Culture organisms [facility] LABORATORY Specimen Anatomical Collection Method Collection Time Receive d Time (Source) Location / / Volume Laterality Fluid sample 11/07/2018 1:02 PM 9 2:04 (specimen) EDT PM EDT Comment: LEFT RENAL STONE FOR SULTURE Resulting Agency Comment Spec In Lab Meghana Galvin Jr., MD MICROBIOLOGY - GENERAL ORDER ELINA Performing Organization Address City/[facility]/[place]IP [place] [address] Body Fluid Culture, Aerobic (11/07/2018 1:02 PM EDT) Component Value Ref Test Analysis Performed At [facility] gist Range Method Time Signature Body Fluid No growth [place] Culture [facility] LABORATORY Gram Stain Cytocentrifuge Gram Stain performed [facility] No Neutrophils seen. [place] No microorganisms seen. [facility] LABORATORY Specimen Anatomical Collection Method Collection Time Receive d Time (Source) Location / / Volume Laterality Fluid sample 11/07/2018 1:02 PM 9 2:04 (specimen) EDT PM EDT Comment: LEFT RENAL STONE FOR SULTURE Resulting Agency Comment Spec In Lab Meghana Galvin Jr., MD MICROBIOLOGY - GENERAL ORDER ELINA Performing Organization Address City/State/[place] [address] POCT Glucose (11/07/2018 12:57 PM EDT) P athologist Signature POC Glucose 107 65 - 199 [facility] mg/dL [facility] Comment: Supplemental ranges: <140 mg/dL before meals <180 mg/dL all other times of the day Specimen Anatomical Collection Method Collection Time Receive d Time (Source) Location / / Volume Laterality Blood specimen 11/07/2018 12:57 9 (specimen) PM EDT 12:57 PM EDT Meghana Galvin Jr., MD POINT OF CARE TEST ORDERABLE S Performing Organization Address City/[facility]/ZIP Code Phon e Number [address] POCT Glucose (11/07/2018 10:08 AM EDT) P athologist Signature POC Glucose 139 65 - 199 [facility] mg/dL [facility] Comment: Supplemental ranges: <140 mg/dL before meals <180 mg/dL all other times of the day Specimen Anatomical Collection Method Collection Time Receive d Time (Source) Location / / Volume Laterality Blood specimen 11/07/2018 10:08 9 (specimen) AM EDT 10:08 AM EDT Meghana Galvin Jr., MD POINT OF CARE TEST ORDERABLE S Performing Organization Address City/[facility]/[place] [address] ABORH Recheck Status (11/07/2018 8:57 AM EDT) [facility] Method Time Signature ABORH Type Completed [facility] LABORATORY Specimen Anatomical Collection Method Collection Time Receive d Time (Source) Location / / Volume Laterality Blood specimen Venous Draw / 11/07/2018 8:57 AM 2018 9:00 (specimen) Unknown EDT AM EDT Resulting Agency Comment Spec In Lab Corby Jose MD BLOOD BANK ORDERABLES Performing Organization Address City/[facility]/[place] [address] Antibody screen (11/07/2018 8:57 AM EDT) Patholo gist Method Time Signature Ab Screen Negative [facility] LABORATORY Expires at 11/10/2018 [facility] [id number] on: [facility] Specimen Anatomical Collection Method Collection Time Receive d Time (Source) Location / / Volume Laterality Blood specimen Venous Draw / 11/07/2018 8:57 AM 2018 9:00 (specimen) Unknown EDT AM EDT Resulting Agency Comment Spec In Lab Corby Jose MD BLOOD BANK ORDERABLES Performing Organization Address City/State/ZIP Code Phon e Number [address] ABO/Rh Typing (11/07/2018 8:57 AM EDT) P athologist Signature ABORh Type O Pos [facility] LABOR[facility]ORY Specimen Anatomical Collection Method Collection Time Receive d Time (Source) Location / / Volume Laterality Blood specimen Venous Draw / 11/07/2018 8:57 AM 2018 9:00 (specimen) Unknown EDT AM EDT Resulting Agency Comment Spec In Lab Corby Jose MD BLOOD BANK ORDERABLES Performing Organization Address City/[facility]/[place]IP [place] [address] documented in this encounter Visit Diagnoses Not on filedocumented in this encounter Admitting Diagnoses Diagnosis Renal calculus, left Calculus of kidney documented in this encounter Administered Medications Inactive Administered Medications - up to 3 most recent administrations Medication Order MAR Action Action Date Dose Rate Site acetaminophen (OFIRMEV) Given 11/07/2018 2:15 PM 1,000 mg 400 mL/hr injection 1,000 mg EDT 1,000 mg, Intravenous, at 400 mL/hr, ONCE, 1 dose, On Arin 11/07/18 at 1400, Maximum dose of acetaminophen is 4000 mg from all sources in 24 hours., Routine acetaminophen (TYLENOL) tablet 1,000 mg Given 11/08/2018 11:44 AM EDT 1,000 mg 1,000 mg, Oral, EVERY 6 HOURS SCHEDULED, First dose on Arin 11/07/18 at 1800, Until Discontinued, Maximum dose of acetaminophen is 4000 mg from all sources in 24 hours., Routine Given 11/08/2018 5:34 AM EDT 1,000 mg Given 11/07/2018 11:30 PM EDT 1,000 mg amitriptyline (ELAVIL) tablet 25 mg Given 11/07/2018 7:47 PM EDT 25 mg 25 mg, Oral, NIGHTLY, First dose on Arin 11/07/18 at 2100, Until Discontinued, Routine BUpivacaine (PF) (MARCAINE) Given 11/07/2018 1:39 PM EDT 10 mLs 19- Surgical Site 0.5 % (5 mg/mL) injection ONCE PRN, Starting on Arin 11/07/18 at 1339, Until Sun11/08/18 at 1658, Intra-Operative (Intra-Procedure), Routine carvedilol (COREG) tablet 3.125 mg Given 11/08/2018 8:20 AM EDT 3.125 mg 3.125 mg, Oral, 2 TIMES DAILY WITH MEALS, First dose on Arin 11/07/18 at 1700, Until Discontinued, Routine Given 11/07/2018 4:45 PM EDT 3.125 mg ceFEPime (MAXIPIME) 1g vial attach to New Bag 11/08/2018 4:09 AM EDT 1 g 200 mL/hr sodium chloride 0.9% 100 mL Mini-Bag Plus 1 g, Intravenous, EVERY 8 HOURS, 2 doses, First dose (after last reorder) on Arin 11/07/18 at 2000, Last dose on Sun11/08/18 at 0400, Administer over 30 Minutes, Indication for (Active or Suspected): Prophylaxis New Bag 11/07/2018 8:00 PM EDT 1 g 200 mL/hr dextrose 50% intravenous solution 25-50 mL 25-50 mL (12.5-25 g), Intravenous, EVERY 1 HOUR PRN, S tarting on Arin 11/07/18 at 1605, Until Sun11/08/18 at 1658, Low blood sugar, F or BG 50-70 [...] the duration of the active insulin., Routine docusate sodium (COLACE) capsule 100 mg Given 11/08/2018 8:20 AM EDT 100 mg 100 mg, Oral, 2 TIMES DAILY, First dose on Sun11/07/18 at 2100, Until Discontinued, Routine gabapentin (NEURONTIN) capsule 600 mg Given 11/08/2018 8:20 AM EDT 600 mg 600 mg, Oral, 3 TIMES DAILY, First dose on Sun11/07/18 at 1500, Until Discontinued, Routine Given 11/07/2018 8:08 PM EDT 600 mg Given 11/07/2018 2:44 PM EDT 600 mg glucagon (human recombinant) injection S olR 1 mg 1 mg, Intramuscular, EVERY 1 HOUR PRN, S tarting on Sun11/07/18 at 1605, Until Sun11/08/18 at 1658, Low blood sugar, For BG 50-70 mg/d [...] Buccal, EVERY 30 MIN PRN, Starting on 10/21 at 1605, Until Sun11/08/18 at 1658, Low blood sugar, For BG 50-70 mg/d [...] weight of tube = 37.5 grams., Routine insulin lispro (HumaLOG) VIAL injection 1-4 Given 10/21 11:44 AM EDT 2 Units Units 1-4 Units, Subcutaneous, 3 TIMES DAILY BEFORE MEALS, First dose on Sun11/07/18 at 1630, Until Discontinued, CORRECTION BOLUS Sensitive to insulin lean patient or total daily dose of all insulin needed to achieve glycemic control less than 30 units BG 140 - 160 Give 1 unit BG 161 - 200 Give 2 units BG 201 - 240 Give 3 units BG greater than 240, give 4 units and recheck BG in 2 hours. If less than 240 after two hours, give no insulin and resume prior schedule. If BG remains greater than 240, repeat 4 units (no more than three times) & call for new basal insulin orders. DO NOT hold if NPO, unless specifically told to do so., Routine Given 11/08/2018 7:02 AM EDT 2 Units Given 11/07/2018 4:45 PM EDT 2 Units lactated ringers infusion New Bag 11/07/2018 11:12 AM EDT 1,000 mL, at 100 mL/hr, Intravenous, CONTINUOUS, Starting on Arin 11/07/18 at 1030, Until Arin 11/07/18 at 1537, Day of Surgery (Day of Procedure) New Bag 11/07/2018 10:20 AM EDT 1,000 mLs 100 mL/hr lidocaine (XYLOCAINE) 10 mg/mL (1 %) injection Given 0 11/07/2018 10:15 AM EDT 3 mg 3 mg 3 mg (0.3 mL), Subcutaneous, ONCE PRN, 1 dose, Starting on Arin 11/07/18 at 1008, Until Arin 11/07/18 at 1015, for discomfort with PIV insertion, Day of Surgery (Day of Procedure), Routine lidocaine-EPINEPHrine 1 Given 11/07/2018 1:39 PM 10 mLs 19- Surgical Site %-1:200,000 injection EDT ONCE PRN, Starting on Arin 11/07/18 at 1339, Until Sun11/08/18 at 1658, Intra-Operative (Intra-Procedure), Routine lisinopril (PRINIVIL;ZESTRIL) tablet 5 m g Given 11/08/2018 8:21 AM EDT 5 mg 5 mg, Oral, DAILY, First dose on Sun11/08/18 at 0900, Until Discontinued, Routine ondansetron (ZOFRAN) injection 4 mg 4 mg, Intravenous, EVERY 8 HOURS PRN, St arting on Arin 11/07/18 at 1605, Until Sun11/08/18 at 1658, Nausea, May repeat time s one in 30 minutes if ineffective. If multiple antiemetics are ordered, use ondansetron firs t., Recovery (Recovery-Hospital Unit) ondansetron (ZOFRAN) tablet 4 mg 4 mg, Oral, EVERY 8 HOURS PRN, Starting on Arin 11/07/18 at 1605, Until Sun11/08/18 at 1658, Nausea, Vomiting, If multipl e antiemetics are ordered, use ondansetron first. PO Preferred. If patient unable to take PO, may give IV if ordered. May repeat times one in 45 minutes if ineffe ctive., Recovery (Recovery-Hospital Unit), Routine oxyCODONE (ROXICODONE) immediate release Given 11/08/2018 9:42 A M EDT 10 mg tablet 10-15 mg 10-15 mg, Oral, EVERY 4 HOURS PRN, Starting on Arin 11/07/18 at 1412, Until Sun11/08/18 at 1658, Pain, severe pain (7-10), Initial dose 10mg. If pain control not adequate in 60 minutes, give additional 5mg, Routine Given 11/08/2018 4:19 AM EDT 10 mg Given 11/07/2018 6:53 PM EDT 10 mg oxyCODONE (ROXICODONE) immediate release Given 11/07/2018 2:45 P M EDT 10 mg tablet 5-10 mg 5-10 mg, Oral, EVERY 4 HOURS PRN, Starting on Arin 11/07/18 at 1412, Until Sun11/08/18 at 1658, Pain, moderate pain (4-6), Initial dose 5mg. If pain control not adequate in 60 minutes, give additional 5mg, Routine sodium chloride 0.9 % flush 5 mL Given 11/08/2018 8:22 AM EDT 5 mLs 5 mL, Intravenous, 2 TIMES DAILY, First dose on Arin 11/07/18 at 2100, Until Discontinued, Recovery (Recovery-Hospital Unit), Routine Given 11/07/2018 7:49 PM EDT 5 mLs sodium chloride 0.9 % flush 5-20 mL 5-20 mL, Intravenous, EVERY 1 MIN PRN, S tarting on Arin 11/07/18 at 1008, Until Sun11/08/18 at 1658, flush, Flush pertains t o all indwelling lines. Flush per protocol found in the job aid using the link prov ided on this medication record., Routine sodium chloride 0.9% infusion New Bag 11/07/2018 11:32 PM EDT 100 mL/hr 100 mL/hr 100 mL/hr, Intravenous, CONTINUOUS, Starting on Arin 11/07/18 at 1430, Until Sun11/08/18 at 1122, Recovery (Recovery-Hospital Unit) New Bag 11/07/2018 2:44 PM EDT 100 mL/hr 100 mL/hr documented in this encounter Active and Recently Administered Medications Times are shown in EDT. Scheduled Medication Order 11/06/2018 11/07/2018 11/08/2018 acetaminophen (OFIRMEV) injection 1,000 mg (COMPLETED) 1415 (Given - Provider: Maxine Hung, RN) 1,000 mg, Intravenous, at 400 mL/hr, ONC E, 1 dose, Arin 11/07/18 at 1400, Maximum dose of acetaminophen is 4000 mg from all sources in 24 hours., Routine acetaminophen (TYLENOL) tablet 1,000 mg 1812 (Given - Provider: Sakshi Washington, RN)2330 (Given - Provider: Ginny Sanchez, RN) 0534 (Given - Provider: Ginny Sanchez, RN)1144 (Given - Provider: Yuni Almendarez, RN) 1,000 mg, Oral, EVERY 6 HOURS SCHEDULED, First dose on Arin 11/07/18 at 1800, Until Discontinued, Maximum dose of acetaminophen is 4000 mg from all sources in 24 hours., Routine amitriptyline (ELAVIL) tablet 25 mg 1947 (Given - Provider: Ginny Sanchez RN)2100 (Not Given - Provider: Ginny Sanchez RN - Reason: See comment - Comment: given earlier per pt request) 25 mg, Oral, NIGHTLY, First dose on Arin 11/07/18 at 2100, Until Discontinued, Routine carvedilol (COREG) tablet 3.125 mg 1645 (Given - Provider: Sakshi Washington, BRYAN) 0820 (Given - Provider: Yuni Almendarez, RN) 3.125 mg, Oral, 2 TIMES DAILY WITH MEALS , First dose on Arin 11/07/18 at 1700, Until Discontinued, Routine ceFEPime (MAXIPIME) 1g vial attach to so dium chloride 0.9% 100 mL Mini-Bag Plus (COMPLETED) 1999 (New Bag - Provider: Stephen Sanchez, BRYAN)2029 (Stopped - Provider: Ginny Sanchez RN) 408 (New Bag - Provider: Ginny bean RN)043 (Stopped - Provider: Ginny Sanchez, BRYAN) 1 g, Intravenous, EVERY 8 HOURS, 2 doses , First dose on Arin 11/07/18 at 2000, Last dose on Sun11/08/18 at 0400, Administer over 30 Minutes, Indication for (Active or Suspected): Prophylaxis docusate sodium (COLACE) capsule 100 mg 2100 (Not Given - Provider: Ginny Sanchez, RN - Reason: Patient/family refused) 0820 (Given - Provider: Yuni Almendarez, RN) 100 mg, Oral, 2 TIMES DAILY, First dose on Arin 11/07/18 at 2100, Until Discontinued, Routine gabapentin (NEURONTIN) capsule 600 mg 14 44 (Given - Provider: Maxine Hung RN)2007 (Given - Provider: Ginny Sanchez, BRYAN) 0820 (Given - Provider: Yuni Almendarez, BRYAN) 600 mg, Oral, 3 TIMES DAILY, First dose on Arin 11/07/18 at 1500, Until Discontinued, Routine gentamicin (GARAMYCIN) 160 mg in sodium chloride 0.9% 104 mL (COMPLETED) 1134 (New Bag - Provider: Pallavi Moore) 160 mg, Intravenous, DRILL SHARPENER TO O.R., 1 dose, Arin 11/07/18 at 1030, Administer over 60 Minutes, This medication may have an associated drug lab level. Please check for lab orders. Warning Vesicant/Irr itant Medication , Day of Surgery (Da y of Procedure), Indication for (Active or Suspected): Prophylaxis insulin lispro (HumaLOG) VIAL injection 1-4 Units(Linked Bear up 1) 1645 (Given - Provider: Sakshi Washington, BRYAN) 0702 (Given - Provider: Ginny Sanchez, BRYAN)1144 (Given - Provider: Yuni Almendarez, RN) 1-4 Units, Subcutaneous, 3 TIMES DAILY B EFORE MEALS, First dose on Arin 11/07/18 at 1630, Until Discontinued, CORRECTION BOLUS Sensitive to insulin lean patient or total daily dose of all insulin need ed to achieve glycemic control less than 30 units BG 140 - 160 Give 1 unit BG 161 - 200 Give 2 units BG 201 - 240 Give 3 units BG greater than 240, give 4 units and recheck BG in 2 hours. If less than 2 40 after two hours, give no insulin and resume prior schedule. If BG remains greater than 240, repeat 4 units (no more than three times) & call for new basal insulin orders. DO NOT hold if NPO, unless specifically told to do so., Routine lisinopril (PRINIVIL;ZESTRIL) tablet 5 mg 0821 (Given - Provider: Yuni Almendarez, RN) 5 mg, Oral, DAILY, First dose on 10/21 at 0900, Until Discontinued, Routine sodium chloride 0.9 % flush 5 mL 1949 (G iven - Provider: Ginny Sanchez, BRYAN)2100 (Not Given - Provider: Ginny Sanchez, BRYAN - Reason: See comment - Comment: flush given earlier per pt request) 0822 (Given - Provider: Yuni Almendarez, BRYAN) 5 mL, Intravenous, 2 TIMES DAILY, First dose on Arin 11/07/18 at 2100, Until Discontinued, Recovery (Recovery-Hospital Unit), Routine Continuous Medication Order 11/06/2018 11/07/2018 11/08/2018 lactated ringers infusion (CANCELED) 102 0 (New Bag - Provider: Sarah Duran RN)1112 (New Bag - Provider: Pallavi Moore)1153 (Anesthesia Volume Adjustment - Provider: Pallavi Moore)1247 (Anesthesia Volume Adjustment - Provider: Pallavi Moore) 1,000 mL, at 100 mL/hr, Intravenous, CON TINUOUS, Starting Arin 11/07/18 at 1030, Until Arin 11/07/18 at 1537, Day of Surgery (Day of Procedure) 1336 (Anesthesia Volume Adjustment - Provider: Pallavi Moore) sodium chloride 0.9% infusion (CANCELED) 1444 (New Bag - Provider: Maxine Hung RN)2331 (Stopped - Provider: Ginny Sanchez, BRYAN)2332 (New Bag - Provider: Ginny Sanchez RN) 1124 (Stopped - Provider: Yuni morin RN) 100 mL/hr, at 100 mL/hr, Intravenous, CO NTINUOUS, Starting Arin 11/07/18 at 1430, Until Sun11/08/18 at 1122, Recovery (Recovery-Hospital Unit) PRN Medication Order 11/06/2018 11/07/2018 11/08/2018 bisacodyl (DULCOLAX) suppository 10 mg 10 mg, Rectal, DAILY PRN, Starting Arin at 1605, Until Sun11/08/18 at 1658, Constipation, Administer if needed per patient's routine or if no bowel movement within 48 hours to achieve: (1) One shyann wel movement at least every 48 hours, AN D (2) Without straining. - If multiple PRN bowel medications ordered, start with magnesium hydroxide, then bisacodyl. - Multiple medications may be given concomitantly for constipation., Routine BUpivacaine (PF) (MARCAINE) 0.5 % (5 mg/mL) injection (CANCE LED) 1339 (Given - Provider: Meghana Galvin Jr., MD) ONCE PRN, Starting Arin 11/07/18 at 1339, Until Sun11/08/18 at 1658, Intra- Operative (Intra-Procedure), Routine dextrose 50% intravenous solution 25-50 mL(Linked Group 2) 25-50 mL (12.5-25 g), Intravenous, EVERY 1 HOUR PRN, Starting Arin 11/07/18 at 1605, Until Sun11/08/18 at 1658, Low blood sugar, For BG 50-70 mg/dL: Oral treatment preferred:?? If able to drink, give 1 20 mL Juice or Regular (not diet) soda O R If NPO, give 15 gram glucose 40% oral gel massaged into buccal mucosa OR if unconscious or uncooperative, give 12.5 gram (25 mL) Dextrose 50% IV OR, if no IV ac cess, give 1 mg Glucagon IM. For BG l ess than 50 mg/dL: Oral treatment preferred:?? If able to drink, give 240 mL Juice or Regular (not diet) soda OR If NPO, give 30 gram glucose 40% oral gel massage d in buccal mucosa OR if unconscious or uncooperative, give 25 gram (50 mL) Dextrose 50% IV OR, if no IV access, give 1 mg Glucagon IM. Recheck BG in 30 minutes. May repeat juice, gel, dextrose or glu cagon once per episode. To avoid extra vasation, push Dextrose 50% SLOWLY (3 mL over 1 minute) in a patent, running IV, preferably a central line. For persistent hypoglycemia, consider longer-acting treatment for the duration of the active insulin., Routine glucagon (human recombinant) injection SolR 1 mg(Linked Group 2) 1 mg, Intramuscular, EVERY 1 HOUR PRN, S tarting Arin 11/07/18 at 1605, Until Sun11/08/18 at 1658, Low blood sugar, For BG 50-70 mg/dL: Oral treatment preferred:?? If able to drink, give 120 mL Juice or Regular (not diet) soda OR If NPO, give 15 gram glucose 40% oral gel massaged into buccal mucosa OR if unconscious or uncooperative, give 12.5 gram (25 mL) Dextrose 50% IV OR, if no IV access, give 1 m g Glucagon IM. For BG less than 50 mg /dL: Oral treatment preferred:?? If able to drink, give 240 mL Juice or Regular (not diet) soda OR If NPO, give 30 gram glucose 40% oral gel massaged in buccal mu [...] EVERY 30 MIN PRN, Start ing Arin 11/07/18 at 1605, Until Sun11/08/18 at 1658, Low blood sugar, For BG 50-70 mg/dL: Oral treatment preferred:?? If able to drink, give 120 mL Juice or Reg ular (not diet) soda OR If NPO, give 15 gram glucose 40% oral gel massaged into buccal mucosa OR if unconscious or uncooperative, give 12.5 gram (25 mL) Dextrose 50% IV OR, if no IV access, give 1 mg Gl ucagon IM. For BG less than 50 mg/dL: Oral treatment preferred:?? If able to drink, give 240 mL Juice or Regular (not diet) soda OR If NPO, give 30 gram glucose 40% oral gel massaged in buccal mucosa OR if unconscious or uncooperative, giv e 25 gram (50 mL) Dextrose 50% IV OR, if no IV access, give 1 mg Glucagon IM. Recheck BG in 30 minutes. May repeat juice, gel, dextrose or glucagon once per epi sode. To avoid extravasation, push Dex trose 50% SLOWLY (3 mL over 1 minute) in a patent, running IV, preferably a central line. For persistent hypoglycemia, consider longer-acting treatment for the duration of the active insulin. 1 tube contains 15 grams of glucose (net weight of tube = 37.5 grams., Routine lidocaine (XYLOCAINE) 10 mg/mL (1 %) injection 3 mg (COMPLET ED) 1015 (Given - Provider: Sarah Duran RN) 3 mg (0.3 mL), Subcutaneous, ONCE PRN, 1 dose, Starting Arin 11/07/18 at 1008, Until Arin 11/07/18 at 1015, for discomfort with PIV insertion, Day of Surgery (Day of Procedure), Routine lidocaine (XYLOCAINE) 10 mg/mL (1 %) injection 3 mg 3 mg (0.3 mL), Subcutaneous, ONCE PRN, 1 dose, Starting Arin 11/07/18 at 1605, Until Sun11/08/18 at 1658, for discomfort with PIV insertion, Recovery (Recovery-Hospital Unit), Routine lidocaine-EPINEPHrine 1 %-1:200,000 injection (CANCELED) 1339 (Given - Provider: Meghana Galvin Jr., MD) ONCE PRN, Starting Arin 11/07/18 at 1339, Until Sun11/08/18 at 1658, Intra- Operative (Intra-Procedure), Routine nitroGLYcerin (NITROSTAT) SL tablet 0.4 mg 0.4 mg, Sublingual, EVERY 5 MIN PRN, Sta rting Arin 11/07/18 at 1412, Until Sun11/08/18 at 1658, Chest pain, SL nitroglycerin may be repeated every 5 minutes as needed up to 3 doses, Routine ondansetron (ZOFRAN) injection 4 mg(Linked Group 3) 4 mg, Intravenous, EVERY 8 HOURS PRN, St arting Arin 11/07/18 at 1605, Until Sun11/08/18 at 1658, Nausea, May repeat times one in 30 minutes if ineffective. If multiple antiemetics are ordered, use onda nsetron first., Recovery (Recovery-Hospital Unit) ondansetron (ZOFRAN) tablet 4 mg(Linked Group 3) 4 mg, Oral, EVERY 8 HOURS PRN, Starting Arin 11/07/18 at 1605, Until 11/08/18 at 1658, Nausea, Vomiting, If multiple antiemetics are ordered, use ondansetron first. PO Preferred. If patient unable to take PO, may give IV if ordered. May repeat times one in 45 minutes if ineffective., Recovery (Recovery-Hospital Unit), Routine oxyCODONE (ROXICODONE) immediate release tablet 10-15 mg([facility]) 8215 (See Alternative - Provider: Maxine Hung, RN)7693 (Given - Provider: Sakshi Washington, RN) 0419 (Given - Provider: Violeta Sahu, RN)0942 (Given - Provider: Yuni Almnedarez, RN) 10-15 mg, Oral, EVERY 4 HOURS PRN, Start ing Arin 11/07/18 at 1412, Until 11/08/18 at 1658, Pain, severe pain (7-10), Initial dose 10mg. If pain control not adequate in 60 minutes, give additional 5mg, Routine oxyCODONE (ROXICODONE) immediate release tablet 5-10 mg([facility] ed Group 4) 4090 (Given - Provider: Maxine Hung, RN)3453 (See Alternative - Provider: Sakshi Washington, RN) 041 (See Alternative - Provider: Violeta Sahu, BRYAN)0942 (See Alternative - Provider: Yuni Almendarez, RN) 5-10 mg, Oral, EVERY 4 HOURS PRN, Starti ng Arin 11/07/18 at 1412, Until Sun11/08/18 at 1658, Pain, moderate pain (4-6), Initial dose 5mg. If pain control not adequate in 60 minutes, give additional 5mg, Routine sodium chloride 0.9 % flush 5-20 mL 5-20 mL, Intravenous, EVERY 1 MIN PRN, S tarting Arin 11/07/18 at 1008, Until 11/08/18 at 1658, flush, Flush pertains to all indwelling lines. Flush per protocol found in the job aid using the link provided on this medication record., Routine sodium chloride 0.9 % flush 5-20 mL 5-20 mL, Intravenous, EVERY 1 MIN PRN, S tarting Arin 11/07/19 at 1605, Until Sun11/08/18 at 1658, flush, Flush pertains to all indwelling lines. Flush per protocol found in the job aid using the link prov ided on this medication record., Recovery (Recovery-Hospital Uni t), Routine Linked Groups Order Group 1: POCT Fingerstick Glucose (CANCELED) Routine, 4 TIMES DAILY BEFORE MEALS & AT BEDTIME, First occurrence on Sun11/07/18 at 1700, Until Specified
Consider choosing FOUR TIMES A DAY BEFORE MEALS AND AT BEDTIME as frequency fo r: Patients who have good hypoglycemia a wareness: -Patients who are eating meals during the day and sleeping at night -Patient who are otherwise stable And insulin lispro (HumaLOG) VIAL injection 1-4 UnitsJump to med 1-4 Units, Subcutaneous, 3 TIMES DAILY B EFORE MEALS, First dose on Sun11/07/18 at 1630, Until Discontinued
CORRECTION BOLUS Sensitive to insulin lean patient or total ariel ly dose of all insulin needed to achieve glycemic control less than 30 units BG 140 - 160 Give 1 unit BG 161 - 200 Give 2 units BG 201 - 240 Give 3 units&n bsp; BG greater than 240, giv e 4 units and recheck BG in 2 hours. If less than 240 after two hours, give no insulin and resume prior schedule. If BG remains greater than 240, repeat 4 units (no more than three times) & call for new basal insulin orders. DO NOT hold if NPO, unless specifically told to do so.
Routine Group 2: glucose (GLUTOSE) 40% oral gelJump to med 15-30 g, Buccal, EVERY 30 MIN PRN, Start ing Sun11/07/18 at 1605, Until Sun11/08/18 at 1658, Low blood sugar
For BG 50-70 mg/dL: [...] give 30 gram glucose 40% oral gel massage d in buccal mucosa OR if unconscious or uncooperative, give 25 gram (50 mL) Dextrose 50% IV OR, if no IV access, give 1 mg Glucagon IM. Recheck BG in 30 minutes. May repeat juice, gel, dextro se or glucagon once per episode. * *To avoid extravasation, push Dextrose 50% SLOWLY (3 mL over 1 minute) in a patent, running IV, preferably a central line. For persistent hypogly cemia, consider longer-acting treatment for the duration of the active insulin. 1 tube contains 15 grams of glucose (net weight of tube = 37.5 grams.
Routine Or dextrose 50% intravenous solution 25-50 mLJump to med 25-50 mL (12.5-25 g), Intravenous, EVERY 1 HOUR PRN, Starting Arin 11/07/18 at 1605, Until Sun11/08/18 at 1658, Low blood sugar
For BG 50-70 mg/dL: Oral treatment preferred:?? If able to drink , give 120 mL Juice or Regular (not diet ) soda OR If NPO, give 15 gram glucose 40% oral gel massaged into buccal mucosa OR if unconscious or uncooperative, give 12.5 gram (25 mL) Dextrose 50% IV OR, if no IV access, give 1 mg Glucagon IM. &nb sp; For BG less than 50 mg/dL: Oral treatment preferred:?? If able to drink, give 240 mL Juice or Regular (not diet) soda OR If NPO, give 30 gram glucose 40 % oral gel massaged in buccal mucosa OR if unconscious or uncooperative, give 25 gram (50 mL) Dextrose 50% IV OR, if no IV access, give 1 mg Glucagon IM. Recheck BG in 30 minutes. May repeat juice, gel, dextrose or glucagon once pe r episode. To avoid extravasation, push Dextrose 50% SLOWLY (3 mL over 1 minute) in a patent, running IV, preferably a central line. For persistent hypoglycemia, consider longer -acting treatment for the duration of the active insulin.
Routine Or glucagon (human recombinant) injection SolR 1 mgJump to med 1 mg, Intramuscular, EVERY 1 HOUR PRN, S tarting Arin 11/07/18 at 1605, Until Sun11/08/18 at 1658, Low blood sugar
For BG 50-70 mg/dL: Oral treatment preferred:?? If able to drink, give 120 mL Juice or Regular (not diet) soda OR If N PO, give 15 gram glucose 40% oral gel massaged into buccal mucosa OR if unconscious or uncooperative, give 12.5 gram (25 mL) Dextrose 50% IV OR, if no IV access, give 1 mg Glucagon IM. For BG l ess than 50 mg/dL: Oral treatment preferred:?? If able to drink, give 240 mL Juice or Regular (not diet) soda OR If NPO, give 30 gram glucose 40% oral gel mas saged in buccal mucosa OR if unconscious or uncooperative, give 25 gram (50 mL) Dextrose 50% IV OR, if no IV access, give 1 mg Glucagon IM. Recheck BG in 30 minutes. May repeat juice, gel, de xtrose or glucagon once per episode. &nb sp;To avoid extravasation, push Dextrose 50% SLOWLY (3 mL over 1 minute) in a patent, running IV, preferably a central line. For persistent hyp oglycemia, consider longer-acting treatm ent for the duration of the active insulin.
Routine Group 3: ondansetron (ZOFRAN) tablet 4 mgJump to med 4 mg, Oral, EVERY 8 HOURS PRN, Starting Arin 11/07/18 at 1605, Until Sun11/08/18 at 1658, Nausea, Vomiting
If multiple antiemetics are ordered, use ondansetron first. PO Preferred. If patient unable to take PO, may give IV if ordered. May repeat times one in 45 minutes if ineffective.
Recovery (Recovery-Hospital Unit), Routine Or ondansetron (ZOFRAN) injection 4 mgJump to med 4 mg, Intravenous, EVERY 8 HOURS PRN, St arting Arin 11/07/18 at 1605, Until 11/08/18 at 1658, Nausea
May repeat times one in 30 minutes if ineffective. If multiple antiemetics are ordered, use ondansetron first.
Rec overy (Recovery-Hospital Unit) Group 4: oxyCODONE (ROXICODONE) immediate release tablet 5-10 mgJump to med 5-10 mg, Oral, EVERY 4 HOURS PRN, Starti ng Arin 11/07/18 at 1412, Until 11/08/18 at 1658, Pain, moderate pain (4-6)
Initial dose 5mg. If pain control not adequate in 60 minutes, give additional 5mg
Routine Or oxyCODONE (ROXICODONE) immediate release tablet 10-15 mgJump to med 10-15 mg, Oral, EVERY 4 HOURS PRN, Start ing Arin 11/07/18 at 1412, Until 11/08/18 at 1658, Pain, severe pain (7-10)
Initial dose 10mg. If pain control not adequate in 60 minutes, give additional 5mg
Routine documented in this encounter Care Teams Contracting Executive Relationship Specialty Start Date End Date Albert Zuleta MD PCP - General Family Medicine 01/17/17 10/26/[address] [place] [id number] documented as of this encounter
--- OUTSIDE RECORDS SUMMARY | 2022-02-08 01:57 | XMS_ITS | Encounter Summary ---
:1960 Author Organization [facility] [place] [address] Care Team Providers Name Role Phone Albert Zuleta MD Primary Care Provider Encounter Details Date Type Department Care Team Description 10/02/2018 Telephone Urology at [facility] Alon Peña, [place] [address] Social History Tobacco Use Types Packs/Day [...] this encounter Miscellaneous Notes Telephone Encounter - Alon Peña, RN - 10/02/2018 2:16 PM EDT Verified patient name and date of Ibis, the nurse from [place] [facility] calling to report that the pt's daughter is a ICU nurse at [facility] and will be administering the IV antibiotics via the pt's picc line. Ibis says she will forward the orders to [facility] infusion suite. documented in this encounter Plan of Treatment Upcoming Encounters Date Type Specialty Care Team Description 03/15/2022 Office Visit Neurology Ryann Barfield APRN [facility] [address] [place] [address] 03/23/2022 Appointment Radiology Hailey Mcclendon MD [facility] [address] [place] [address] 03/23/2022 Laboratory Appointment Lab 03/23/2022 Office Visit Gastroenterology Hailey Mcclendon MD [facility] [address] [place] [address] 05/23/2022 Procedure visit Maxillofacial Surgery Corby Montes MD [facility] [address] [place] [address] documented as of this encounter Visit Diagnoses Not on filedocumented in this encounter Care Teams Licensed Master Social Worker Relationship Specialty Start Date End Date Albert Zuleta MD PCP - General Family Medicine 01/17/17 10/26/[address] [place] [phone] documented as of this encounter
--- OUTSIDE RECORDS SUMMARY | 2022-02-08 01:57 | XMS_ITS | Encounter Summary ---
:1960 [place] [address] Care Team Providers Name Role Phone Albert [...] Expiration Date Visits Requ ested Visits Authorized [id number] 1 1 Encounter Details Date Type Department Care Team Description 11/07/2018 - Hospital Encounter Short Stay Unit at Meghana Galvin 11/08/2018 Hailey Gomez Jr., MD [facility] DR [address] UROLOGY DEPT. [place], [place] [phone] Social History Tobacco Use Types Packs/Day Years [...] Sign Reading Time Taken Comments Blood Pressure 153/89 11/08/2018 8:06 AM EDT Pulse 80 11/08/2018 10:45 AM EDT Temperature 37 ??C (98.6 ??F) 11/08/2018 8:06 AM EDT Respiratory Rate 16 11/08/2018 8:06 AM EDT Oxygen Saturation 98% 11/08/2018 10:45 AM EDT Inhaled Oxygen Concentration - - [...] Dr. Sears on 07/09/2019. Urine cultures from [facility] showed Proteus Mirabilis. Blood cultures at [facility] showed no growth. He was discharged on [...] Hospital Course: Blossom Samayoa was admitted to [facility] on 11/07/2018 through the Same Day Surgery [...] of the kidney but attached to the Mckinney. The Pollack catheter tip is at the [...] that part of your care. Urology Clinic: [phone] PCP: Albert Zuleta MD, . Please follow-up with your PCP in 1-2 weeks or sooner as needed. Scheduled Appointments: The following appointments have been scheduled on your behalf: Future Appointments and Orders Future Appointments and Orders Future Appointments Provider Department Dept Phone 11/28/2018 9:30 AM [facility] [place] Nuclear Medicine at at [facility] Arrive at: [facility] Area [phone] 11/28/2018 10:00 AM [facility] NM ROOM 3 Nuclear Medicine at at [facility] Arrive at: [facility] [phone] 11/28/2018 12:00 PM [facility] NM ROOM 3 Nuclear Medicine at at [facility] Arrive at: [facility] Area [phone] 11/28/2018 1:00 PM LAB, THREE L Lab [address] [place] [address] Arrive at: [facility] [phone] 11/28/2018 1:30 PM [facility] DB DEXA ROOM 1 XRay at [facility] Arrive at: [facility] [phone] Please arrive 15 minutes prior to your appointment time. Please go to [facility] 3 ([facility] Location). 11/28/2018 2:30 PM Emily Mcmahon MD General Surgery at [facility] Arrive at: [facility] [phone] 12/23/2018 10:30 AM Ace Henry MD General Surgery at [facility] Arrive at: [facility] [phone] 12/31/2018 4:30 PM Meghana Galvin Jr., MD Urology at [facility] Arrive at: [facility] [phone] Outpatient Services/Studies: No discharge procedures on file. Instructions Given to Patient at Discharge: Patient Instructions DISCHARGE INSTRUCTIONS FOLLOWING PCNL Call your doctor for: ??? fevers greater than 101.5 ??? severe nausea or vomiting ??? increasing pain not controlled by pain medications ??? increasing redness or drainage from incisions ??? decreased urine output The number for questions is [phone] before 5 PM weekdays and [phone] after 5 PM and weekends. Antibiotics: Please [...] (acetaminophen) or Ibuprofen (Advil, Motrin) as directed [id number]. Take any prescriptions as directed. Follow up Appointments: Follow-up appointment will be scheduled with Dr. Galvin in 2 weeks for a hospital check and stent removal. Appointment will be mailed to you. Please call [phone] (clinic number for appointments) to confirm date [...] managed by the Urologic Surgery Team at [facility]. If you have any questions or concerns, please feel free to contact us. Provider Contact Information: Urology Clinic: [phone] [facility] (after business hours): CC: Albert Zuleta MD [...] Alldress Dressing or Mepilex Border. Patient InstructionsAvani Huynh PA - 11/07/2018 10:37 AM EDT DISCHARGE INSTRUCTIONS FOLLOWING PCNL Call your doctor for: ??? fevers greater than 101.5 ??? severe nausea or vomiting ??? increasing pain not controlled by pain medications ??? increasing redness or drainage from incisions ??? decreased urine output The number for questions is [phone] before 5 PM weekdays and [phone] after 5 PM and weekends. Antibiotics: Please [...] (acetaminophen) or Ibuprofen (Advil, Motrin) as directed [id number]. Take any prescriptions as directed. Follow up Appointments: Follow-up appointment will be scheduled with Dr. Galvin in 2 weeks for a hospital check and stent removal. Appointment will be mailed to you. Please call [phone] (clinic number for appointments) to confirm date [...] Dr. Sears on 07/09/2019. Urine cultures from [facility] showed Proteus Mirabilis. Blood cultures at [facility] showed no growth. He was discharged on [...] ??? CHF (congestive heart failure) diag 2016 [facility] ??? Chronic lung disease sarcoidosis ??? Chronic [...] failure 'don't know if it's failure ??? 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 Mental health problem ??? Obstructive sleep apnea diag 2007 ??? Osteoma of ear canal ??? Vertigo balance prob,last fall early Jun. Past Surgical History: Procedure Laterality Date ??? PRG [facility]A 09/26/2018 FLUOROSCOPY (WRVU 0.17) performed by Meghana Galvin Jr., MD at [facility] MAIN OR ??? PRG US GUIDE INTRAOP Right 09/26/2018 ULTRASONIC GUIDANCE, INTRAOP (WRVU 1.2) performed by Meghana Galvin Jr., MD at [facility] MAIN OR ? ? PRO CYSTO W URETEROSCOPY &/OR PYELOSCOPY, DX Right 09/26/2018 CYSTOURETEROSCOPY, DIAGNOSTIC (WRVU 5.75) performed by Meghana Galvin Jr., MD at [facility] OR ??? PRO CYSTOSCOPY, INSERT URETERAL STENT Right 07/10/2018 CYSTO, STENT PLACEMENT (WRVU 2.82) performed by Viky Sears MD at [facility] OR ??? PRO CYSTOSCOPY, REMV CALCULUS, COMPLIC Right 09/26/2018 CYSTO, REMOVAL OF STENT, FOREIGN BODY, CALCULUS, COMPLICATED (WRVU 5.2) performed by Meghana Galvin MD at [facility] OR ??? PRO CYSTOURETHROSCOPY, URETER CATHETER Right 07/10/2018 CYSTO, RETROGRADE, URETEROPYELOGRAPHY (WRVU 2.37) performed by Viky Sears MD at [facility] OR ??? PRO CYSTOURETHROSCOPY, URETER CATHETER Right 09/26/2018 CYSTO, RETROGRADE, URETEROPYELOGRAPHY, W/PCNL (WRVU 2.37) performed by Meghana Galvin Jr., MD at [facility] OR ??? PRO PERCUT REMV KID STONE, 2+ CM Right 09/26/2018 NEPHROLITHOTOMY, (PCNL) PERCUTANEOUS, OVER 2CM (WRVU 23.5) performed by Meghana Galvin Jr., MD at [facility] OR ? ? PRO PLMT NEPHROSTOMY CATH PRQ NEW ACCESS RS&I Right 09/26/2018 NEPHROSTOMY CATHETER, PERC, INC DX NEPHROSTOGRAM/URETEROGRAM, IMG GUIDANCE (WRVU 4.25) performed byMeghana Galvin Jr., MD at [facility] OR ALLERGIES Allergies Allergen Reactions ??? Anafranil [...] Miscellaneous Notes Plan of Care - Janell Tinsley OT - 11/08/2018 2:17 PM EDT Occupational Therapy Evaluation Pertinent History of Current Problem: 57 y.o. female presenting pod#1 after Left PCNL Precautions/Restrictions: (at risk for falls ) Precautions Comments: Elliott, nephrostomy tube Assessment: Pt has been seen for occupational therapy evaluation, please refer to associated flowsheet data listed below for details. 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 Cognitive Assessment Interventions Behavior/Mood Observations (Cognitive) alert;cooperative [...] Pt sitting EOB pre session Transfer Assessment/Treatment Onr-Wuxzf-Ybf Assistive Device (Transfers) straight cane Impairments (Transfers) strength decreased;balance impaired Comment (Transfers) Pt using person cane with wide base; required assistance for bag and IV management Hamel (Stand-Sit Transfers) conditional independence Hamel (Sit-Stand Transfers) conditional independence Gait Assessment/Treatment Impairments (Gait) balance impaired Assistive Device (Gait) straight cane Hamel (Gait) conditional independence Distance in Feet (Gait) ~90 Comment (Gait) Pt required assistance for bag and IV management; otherwise ambulated with cane support only ADL Assessment/Intervention Additional Documentation Lower Body Dressing Assessment/Training (Group) Lower Body Dressing Assessment/Training Assistive Devices (LB Dressing) foxing painter;sock-aid;dressing stick Position (LB Dressing) sitting Hamel Level (LB Dressing) conditional independence Impairments (LB [...] Fluids: adequate Fluids Requirement: PO/IVF Current bed: [facility] Assessment: Patient with a slow to [...] Please contact KADI REY RN on pager [phone] or the wound care team at [phone] or pager [phone] skin and wound care concerns or questions. [...] of the kidney but attached to the Mckinney. The Pollack catheter tip is at the [...] not need PT) BRIAN MOULTON, PT Pager: [phone] Inpatient Physical Therapy 2017 PT Evaluation Code [...] Scale) Pain Level 3 Bed Mobility Assessment/Treatment Igrhiv-is-Hfq Hamel (Bed Mobility) conditional independence Impairments (Bed Mobility) strength decreased Safety Issues (Bed Mobility) impaired trunk control for bed mobility Transfer Assessment/Treatment Bed-Chair Hamel (Transfers) conditional independence Chair-Bed Hamel (Transfers) conditional independence;verbal cues required Hoo-Agqor-Loh Assistive Device (Transfers) straight cane (cues for positioning) Gait Assessment/Treatment Hamel (Gait) conditional independence Assistive Device (Gait) straight [...] purposeful rounding Plan of Care - Sakshi Washington RN - 11/07/2018 6:45 PM EDT Problem: [...] Jose MD - 11/07/2018 2:08 PM EDT [facility] Operative Note Patient Name: Blossom Samayoa : [id number] MR#: [id number] Case Date: 11/07/2018 Surgeon: Surgeon(s) and Role: [...] Dr. Sears on 07/09/2019. Urine cultures from [facility] showed Proteus Mirabilis. Blood cultures at [facility] showed no growth. He was discharged on [...] The nephroscope was removed. A 24 Fr Progreso catheter was passed over the working Super Stiff guide wire into the renal pelvis under fluoroscopic guidance. Contrast was again instilled to ensure adequate placement. A Pollack catheter was inserted via the Progreso catheter to be used as a safety re-entry catheter. The Ainsworthcatheter was secured to the skin using two 0 silk sutures. The guide wire was removed from the Progreso and Pollack catheter combination. 20 mL 1% [...] Operative Note Patient Name: Blossom Samayoa : [id number] MR#: [id number] Case Date: 11/07/2018 Surgeon: Surgeon(s) and Role: [...] Urine Output: not recorded Drains: -24 Fr Progreso Left nephrostomy tube with 5 Fr pollack [...] 03/15/2022 Office Visit Neurology Ryann Barfield APRN [facility] [address] [place] [address] 03/23/2022 Appointment Radiology Hailey Mcclendon MD [facility] [address] [place] [address] 03/23/2022 Laboratory Appointment Lab 03/23/2022 Office Visit Gastroenterology Hailey Mcclendon MD [facility] [address] [address] 05/23/2022 Procedure visit Maxillofacial Surgery Corby Montes MD [facility] [address] [place] [address] documented as of this encounter Procedures [...] Signature POC Glucose 173 65 - 199 [facility] mg/dL [facility] Comment: Supplemental ranges: <140 mg/dL before meals <180 mg/dL all other times of the day Specimen Anatomical Collection Method Collection Time Receive d Time (Source) Location / / Volume Laterality Blood specimen 11/08/2018 11:41 9 (specimen) AM EDT 11:41 AM EDT Meghana Galvin Jr., MD POINT OF CARE TEST ORDERABLE S Performing Organization Address City/State/[place] [address] POCT Glucose (11/08/2018 6:58 AM EDT) athologist Signature POC Glucose 191 65 - 199 [facility] mg[facility]dL [facility] Comment: Supplemental ranges: <140 mg/dL before meals <180 mg/dL all other times of the day Specimen Anatomical Collection Method Collection Time Receive d Time (Source) Location / / Volume Laterality Blood specimen 11/08/2018 6:58 AM 019 6:58 (specimen) EDT AM EDT Meghana Galvin Jr., MD POINT OF CARE TEST ORDERABLE S Performing Organization Address City/State/[place] [address] Abdomen & Pelvis wo Contrast (11/08/2018 5:19 AM EDT) Anatomical Region Laterality Modality Abdomen, Pelvis Computed Tomography Specimen (Source) Anatomical Location Collection Method / Collectio n Time Received Time / Laterality Volume Impressions 11/08/2018 6:44 AM EDT 1. ??Emani catheter withdrawn out of the kidney but attached to the Mckinney. The Pollack catheter tip is at the [...] please contact e number below. ? Narrative 11/08/2018 6:44 AM EDT EXAMINATION: CT [...] of right ureteral stent. Left kidney/ureter: The Emani drain is external to the kidney. The Pollick is withdrawn with a portion attached to the tip of the drains Progreso. The polyp terminates of the proximal ureter. [...] of right ureteral stent. Left kidney/ureter: The Emani drain is external to the kidney. The [...] t he kidney but attached to the Mckinney. The Pollack catheter tip is at the [...] For questions regarding this report, please contact [facility] number below. Electronically signed by: Felicia Mari [facility] ([phone]), at 11/08/2018 6:44 AM Meghana Galvin Jr., MD IMG CT ORDERABLES (ABNORMAL) Differential, Automated (11/08/2018 1:56 AM EDT) Patholo gist Method Time Signature Neutrophils % 85.0 % [facility] Neutr Abs (ANC) 12.01 (H) 1.70 - [facility] 6.10 [facility] x10(3)/[facility] LABORATORY Lymphocytes % 10.1 % [facility] Lymphocytes Abs 1.4 0.9 - 3.2 [facility] x10(3)/[facility] LABORATORY Monocytes % 4.3 % [facility] Monocyte Abs 0.6 0.3 - 0.9 [facility] x10(3)/[facility] LABORATORY Eosinophils % 0.0 % [facility] Eosinophils Abs 0.0 0.0 - 0.4 [facility] x10(3)/[facility] LABORATORY Basophils % 0.1 % [facility] Basophils Abs 0.0 0.0 - 0.1 [facility] x10(3)/[facility] LABORATORY Immature Gran % 0.50 % NOR[facility] [...] Gran Abs 0.07 (H) 0.00 - 0.04 x10(3)/[facility] LABORATORY Specimen Anatomical Collection Method Collection Time Receive d Time (Source) Location / / Volume Laterality Blood specimen 11/08/2018 1:56 AM 019 2:01 (specimen) EDT AM EDT Resulting Agency Comment Spec In Lab Corby Jose MD HEMATOLOGY ORDERABLES Performing Organization Address City/State/[place] [address] (ABNORMAL) Hemogram (11/08/2018 1:56 AM EDT) Analysis Performed At Patho logist Time Signature WBC 14.1 (H) 4.0 - 9.5 [facility] x10(3)/[facility] LABORATORY RBC 3.63 (L) 4.00 - [facility] [place] 5.21 [facility] x10(6)/[facility] LABORATORY Hemoglobin 11.1 (L) 11.7 - [facility] 15.5 gm/dL [facility] Hematocrit 33.8 (L) 35.7 - [facility] 45.8 % [facility] MCV 93.1 82.6 - [facility] 94.4 [facility] LABORATORY MCH 30.6 27.1 - [facility] 32.0 pg [facility] MCHC 32.8 31.7 - [facility] 35.0 gm/dL [facility] Platelets 251 145 - 357 [facility] x10(3)/[facility] LABORATORY RDWSD 43.0 37.0 - [facility] 46.0 [facility] LABORATORY RDWCV 12.6 11.5 - [facility] 14.1 % [facility] MPV 9.8 7.6 - 12.9 [facility] LABORATORY nRBC % Auto 0.0 % [facility] nRBC Abs Auto 0.000 0.000 - [facility] 0.000 [facility] x10(3)/[facility] LABORATORY Specimen Anatomical Collection Method Collection Time Receive d Time (Source) Location / / Volume Laterality Blood specimen 11/08/2018 1:56 AM 019 2:01 (specimen) EDT AM EDT Resulting Agency Comment Spec In Lab Corby Jose MD HEMATOLOGY ORDERABLES Performing Organization Address City/State/[place] [address] (ABNORMAL) Basic Metabolic Panel (non-fasting) (11/08/2018 1:56 AM EDT) athologist Signature Glucose Lvl 211 (H) 65 - 199 [facility] mg/dL [facility] Comment: Diabetes: >=200 mg/dL plus symp toms BUN 15 8 - 18 mg/dL [facility] Creatinine 0.74 0.70 - 1.20 mg/dL [facility] Sodium 136 135 - 145 mmol/L [facility] Potassium 4.9 3.5 - 5.0 mmol/L [facility] Comment: Please note: ??Patients with WBC >100,00 0 may have falsely elevated Potassium levels. ??For accurate Potassium quantif ication in these patients send serum separator tube (gold top) for subsequent determinations. ??Contact the Clinical Chemistry Laboratory if there are any qu estions. Chloride 103 98 - 107 mmol/L [facility] CO2 20 (L) 22 - 31 mmol/L [facility] Anion Gap 13 5 - 15 mmol/L [facility] Calcium 9.9 8.5 - 10.5 mg/dL [facility] Estimated GFR 89 >=60 mL/min/1.73 m?? [facility] Comment: The eGFR was calculated using the CKD-EP I equation. As with all creatinine based estimates of kidney function, eGFR values calculated with the CKD-EPI equation are not accurate in patients wi th acute kidney failure, extremes of body mass or the acutely ill. [email or web address] eGFR 104 >=60 mL/min/1.73 m?? [facility] Comment: The eGFR was calculated using the CKD-EP I equation. As with all creatinine based estimates of kidney function, eGFR values calculated with the CKD-EPI equation are not accurate in patients wi th acute kidney failure, extremes of body mass or the acutely ill. [email or web address] Specimen Anatomical Collection Method Collection Time Receive d Time (Source) Location / / Volume Laterality Blood specimen 11/08/2018 1:56 AM 019 2:01 (specimen) EDT AM EDT Resulting Agency Comment Spec In Lab Meghana Galvin Jr., MD CHEMISTRY ORDERABLES Performing Organization Address City/State/[place] [address] (ABNORMAL) POCT Glucose (11/07/2018 9:34 PM EDT) athologist Signature POC Glucose 225 (H) 65 - 199 [facility] [place] mg/dL [facility] Comment: Supplemental ranges: <140 mg/dL before meals <180 mg/dL all other times of the day Specimen Anatomical Collection Method Collection Time Receive d Time (Source) Location / / Volume Laterality Blood specimen 11/07/2018 9:34 PM 019 9:34 (specimen) EDT PM EDT Meghana Galvin Jr., MD POINT OF CARE TEST ORDERABLE S Performing Organization Address City/[facility]/ZIP Code Phon e Number [address] POCT Glucose (11/07/2018 4:32 PM EDT) athologist [facility] POC Glucose 187 65 - 199 [facility] mg/dL [facility] Comment: Supplemental ranges: <140 mg/dL before meals <180 mg/dL all other times of the day Specimen Anatomical Collection Method Collection Time Receive d Time (Source) Location / / Volume Laterality Blood specimen 11/07/2018 4:32 PM 019 4:32 (specimen) EDT PM EDT Meghana Galvin Jr., MD POINT OF CARE TEST ORDERABLE S Performing Organization Address City/[facility] Phon e Number [address] Differential, Automated (11/07/2018 2:35 PM EDT) athologist [facility] Neutrophils % 60.3 % [facility] Neutr Abs (ANC) 4.71 1.70 - [facility] 6.10 [facility] x10(3)/[facility] LABORATORY Lymphocytes % 32.8 % [facility] Lymphocytes Abs 2.6 0.9 - 3.2 [facility] x10(3)/[facility] LABORATORY Monocytes % 4.1 % [facility] Monocyte Abs 0.3 0.3 - 0.9 [facility] x10(3)/[facility] LABORATORY Eosinophils % 2.2 % [facility] Eosinophils Abs 0.2 0.0 - 0.4 [facility] x10(3)/[facility] LABORATORY Basophils % 0.3 % [facility] Basophils Abs 0.0 0.0 - 0.1 [facility] x10(3)/[facility] LABORATORY Immature Gran % 0.30 % NOR[facility] [...] Irina Gran Abs 0.02 0.00 - 0.04 x10(3)/[facility] Specimen Anatomical Collection Method Collection Time Receive d Time (Source) Location / / Volume Laterality Blood specimen 11/07/2018 2:35 PM 019 2:48 (specimen) EDT PM EDT Resulting Agency Comment Spec In Lab Corby Jose MD HEMATOLOGY ORDERABLES Performing Organization Address City/State/[place] [address] (ABNORMAL) Hemogram (11/07/2018 2:35 PM EDT) Analysis Performed At Patho logist Time Signature WBC 7.8 4.0 - 9.5 [facility] x10(3)/[facility] LABORATORY RBC 3.53 (L) 4.00 - [facility] 5.21 [facility] x10(6)/[facility] LABORATORY Hemoglobin 10.9 (L) 11.7 - [facility] 15.5 gm/dL [facility] Hematocrit 33.9 (L) 35.7 - [facility] 45.8 % [facility] MCV 96.0 (H) 82.6 - [facility] 94.4 [facility] LABORATORY MCH 30.9 27.1 - [facility] 32.0 [facility] LABORATORY MCHC 32.2 31.7 - [facility] 35.0 gm/dL [facility] Platelets 213 145 - 357 [facility] x10(3)/[facility] LABORATORY RDWSD 45.6 37.0 - [facility] 46.0 [facility] RDWCV 12.9 11.5 - [facility] 14.1 % [facility] MPV 10.4 7.6 - 12.9 [facility] LABORATORY nRBC % Auto 0.0 % [facility] nRBC Abs Auto 0.000 0.000 - [facility] 0.000 [facility] x10(3)/[facility] LABORATORY Specimen Anatomical Collection Method Collection Time Receive d Time (Source) Location / / Volume Laterality Blood specimen 11/07/2018 2:35 PM 019 2:48 (specimen) EDT PM EDT Resulting Agency Comment Spec In Lab Corby Jose MD HEMATOLOGY ORDERABLES Performing Organization Address City/State/[place] [address] (ABNORMAL) Basic Metabolic Panel (non-fasting) (11/07/2018 2:35 PM EDT) P athologist Signature Glucose Lvl 165 65 - 199 [facility] mg/dL [facility] Comment: Diabetes: >=200 mg/dL plus symp toms BUN 14 8 - 18 mg/dL [facility] Creatinine 0.79 0.70 - 1.20 mg/dL [facility] Sodium 136 135 - 145 mmol/L [facility] Potassium 4.8 3.5 - 5.0 mmol/L [facility] Comment: Please note: ??Patients with WBC >100,00 0 may have falsely elevated Potassium levels. ??For accurate Potassium quantif ication in these patients send serum separator tube (gold top) for subsequent determinations. ??Contact the Clinical Chemistry Laboratory if there are any qu estions. Chloride 102 98 - 107 mmol/L [facility] CO2 21 (L) 22 - 31 mmol/L [facility] Anion Gap 13 5 - 15 mmol/L [facility] Calcium 10.6 (H) 8.5 - 10.5 mg/dL [facility] Estimated GFR 83 >=60 mL/min/1.73 m?? [facility] Comment: The eGFR was calculated using the CKD-EP I equation. As with all creatinine based estimates of kidney function, eGFR values calculated with the CKD-EPI equation are not accurate in patients wi th acute kidney failure, extremes of body mass or the acutely ill. [email or web address] eGFR 96 >=60 mL/min/1.73 m?? [facility] Comment: The eGFR was calculated using the CKD-EP I equation. As with all creatinine based estimates of kidney function, eGFR values calculated with the CKD-EPI equation are not accurate in patients wi th acute kidney failure, extremes of body mass or the acutely ill. [email or web address] Specimen Anatomical Collection Method Collection Time Receive d Time (Source) Location / / Volume Laterality Blood specimen 11/07/2018 2:35 PM 019 2:48 (specimen) EDT PM EDT Resulting Agency Comment Spec In Lab Meghana Galvin Jr., MD CHEMISTRY ORDERABLES Performing Organization Address [facility]/State/[place] [address] Kidney Stone Analysis (11/07/2018 2:00 PM EDT) Component Value Ref Test Analysis Performed At [facility] Range Method Time Signature Kidney Stone [place] Analysis Test ? Result ?Flag ??Unit ??RefValue [facility] Kidney Stone Analysis [facility] ??Source: ?[facility] t Renal LABORATORY ??1st Constituent: ?60% Calcium phosphate (apatite) ??2nd Constituent: ?30% Calcium oxalate dihydrate ??3rd Constituent: ?10% Calcium oxalate monohydrate ? ADDITIONAL INFORMATION ------ ?This test was developed and its performance characteri stics ?determined by [facility] in a manner consistent with CLIA ?requirements. This test has not been cleared or approv ed by ?the U.S. Food and Drug Administration. ?Test Performed by: ?[facility] ?[address] [place] [address] Specimen Anatomical Collection Method Collection Time Receive d Time (Source) Location / / Volume Laterality Calculus 11/07/2018 2:00 PM 9 2:56 specimen EDT PM EDT (specimen) Resulting Agency Comment Spec In Lab Meghana Galvin Jr., MD BODY FLUIDS AND STOOLS ORDER ELINA Performing Organization Address City/State/ZIP Code Phon e Number [address] POCT Glucose (11/07/2018 1:59 PM EDT) P athologist Signature POC Glucose 150 65 - 199 [facility] mg/dL [facility] Comment: Supplemental ranges: <140 mg/dL before meals <180 mg/dL all other times of the day Specimen Anatomical Collection Method Collection Time Receive d Time (Source) Location / / Volume Laterality Blood specimen 11/07/2018 1:59 PM 019 1:59 (specimen) EDT PM EDT Meghana Galvin Jr., MD POINT OF CARE TEST ORDERABLE S Performing Organization Address City/State/ZIP Code Phon e Number [address] XR Fluoro No Rad <1Hr - OR Use (11/07/2018 1:46 PM EDT) Specimen (Source) Anatomical Location Collection Method / Collectio n Time Received Time / Laterality Volume Narrative DH RAD - 11/07/2018 1:46 PM EDT This order does not need a radiologist i nterpretation. ?? Meghana Galvin Jr., MD IMG FLUORO ORDERABLES Performing Organization Address City/State/ZIP Code Phon e Number RAD RAD [place], [place] Anaerobic Culture (11/07/2018 1:02 PM EDT) Patholo gist Method Time Signature Anaerobic No anaerobic [facility] Culture organisms [facility] LABORATORY Specimen Anatomical Collection Method Collection Time Receive d Time (Source) Location / / Volume Laterality Fluid sample 11/07/2018 1:02 PM 9 2:04 (specimen) EDT PM EDT Comment: LEFT RENAL STONE FOR SULTURE Resulting Agency Comment Spec In Lab Meghana Galvin Jr., MD MICROBIOLOGY - GENERAL ORDER ELINA Performing Organization Address City/[facility]/[place] [address] Body Fluid Culture, Aerobic (11/07/2018 1:02 PM EDT) Component Value Ref Test Analysis Performed At [facility] gist Range Method Time Signature Body Fluid No growth [place] Culture [facility] Gram Stain Cytocentrifuge Gram Stain performed [facility] No Neutrophils seen. [place] No microorganisms seen. [facility] Specimen Anatomical Collection Method Collection Time Receive d Time (Source) Location / / Volume Laterality Fluid sample 11/07/2018 1:02 PM 9 2:04 (specimen) EDT PM EDT Comment: LEFT RENAL STONE FOR SULTURE Resulting Agency Comment Spec In Lab Meghana Galvin Jr., MD MICROBIOLOGY - GENERAL ORDER ELINA Performing Organization Address City/[facility]/[place] [address] POCT Glucose (11/07/2018 12:57 PM EDT) P athologist Signature POC Glucose 107 65 - 199 [facility] mg/dL [facility] Comment: Supplemental ranges: <140 mg/dL before meals <180 mg/dL all other times of the day Specimen Anatomical Collection Method Collection Time Receive d Time (Source) Location / / Volume Laterality Blood specimen 11/07/2018 12:57 9 (specimen) PM EDT 12:57 PM EDT Meghana Galvin Jr., MD POINT OF CARE TEST ORDERABLE S Performing Organization Address City/State/ZIP Code Phon e Number [address] POCT Glucose (11/07/2018 10:08 AM EDT) P athologist Signature POC Glucose 139 65 - 199 [facility] mg/dL [facility] Comment: Supplemental ranges: <140 mg/dL before meals <180 mg/dL all other times of the day Specimen Anatomical Collection Method Collection Time Receive d Time (Source) Location / / Volume Laterality Blood specimen 11/07/2018 10:08 9 (specimen) AM EDT 10:08 AM EDT Meghana Galvin Jr., MD POINT OF CARE TEST ORDERABLE S Performing Organization Address City/[facility]/[place] [address] ABORH Recheck Status (11/07/2018 8:57 AM EDT) [facility] Method Time Signature ABORH Type Completed [facility]ORATORY Specimen Anatomical Collection Method Collection Time Receive d Time (Source) Location / / Volume Laterality Blood specimen Venous Draw / 11/07/2018 8:57 AM 2018 9:00 (specimen) Unknown EDT AM EDT Resulting Agency Comment Spec In Lab Corby Jose MD BLOOD BANK ORDERABLES Performing Organization Address City/State/[place] [address] Antibody screen (11/07/2018 8:57 AM EDT) Patholo gist Method Time Signature Ab Screen Negative [facility]ORY Expires at 11/10/2018 [facility] 2359 on: [facility] Specimen Anatomical Collection Method Collection Time Receive d Time (Source) Location / / Volume Laterality Blood specimen Venous Draw / 11/07/2018 8:57 AM 2018 9:00 (specimen) Unknown EDT AM EDT Resulting Agency Comment Spec In Lab Corby Jose MD BLOOD BANK ORDERABLES Performing Organization Address City/State/[place] [address] ABO/Rh Typing (11/07/2018 8:57 AM EDT) P athologist Signature ABORh Type O Pos [facility] Specimen Anatomical Collection Method Collection Time Receive d Time (Source) Location / / Volume Laterality Blood specimen Venous Draw / 11/07/2018 8:57 AM 2018 9:00 (specimen) Unknown EDT AM EDT Resulting Agency Comment Spec In Lab Corby Jose MD BLOOD BANK ORDERABLES Performing Organization Address City/State/[place] [address] documented in this encounter Visit Diagnoses Diagnosis Renal calculus, left Calculus of kidney documented in this encounter Admitting Diagnoses Diagnosis Renal [...] TIMES DAILY WITH MEALS, First dose on Sun11/07/18 at 1700, Until Discontinued, Routine Given 11/07/2018 4:45 PM EDT 3.125 mg ceFEPime (MAXIPIME) 1g vial attach to New Bag 11/08/2018 4:09 AM EDT 1 g 200 mL/hr sodium chloride 0.9% 100 mL Mini-Bag Plus 1 g, Intravenous, EVERY 8 HOURS, 2 doses, First dose (after last reorder) on Sun11/07/18 at 2000, Last dose on Sun11/08/18 at [...] TIMES DAILY BEFORE MEALS, First dose on Arin 11/07/18 at [...] Day of Surgery (Day of Procedure), Routine lisinopril (PRINIVIL;ZESTRIL) tablet 5 m g Given 11/08/2018 8:21 AM EDT 5 mg 5 mg, Oral, DAILY, First dose on Sun11/08/18 at 0900, Until Discontinued, Routine ondansetron (ZOFRAN) injection 4 mg 4 mg, Intravenous, EVERY 8 HOURS PRN, St arting on Arin 11/07/18 at 1605, Until 11/08/18 at 1658, Nausea, May repeat time s [...] (COMPLETED) 1415 (Given - Provider: Maxine Hung, BRYAN) 1,000 mg, Intravenous, at 400 mL/hr, ONC E, 1 dose, Arin 11/07/18 at 1400, Maximum dose of acetaminophen is 4000 mg from all sources in 24 hours., Routine acetaminophen (TYLENOL) tablet 1,000 mg 1812 (Given - Provider: Sakshi Washington RN)2330 (Given - Provider: Ginny Sanchez, BRYAN) 0534 (Given - Provider: Ginny Sanchez RN)1144 (Given - Provider: Yuni Almendarez, RN) 1,000 mg, Oral, EVERY 6 HOURS SCHEDULED, First dose on Sun11/07/18 at 1800, Until Discontinued, Maximum dose of acetaminophen is 4000 mg from all sources in 24 hours., Routine amitriptyline (ELAVIL) tablet 25 mg 194 (Given - Provider: Ginny Sanchez RN)2099 (Not Given - Provider: Ginny Sanchez RN - Reason: See comment - Comment: given earlier per pt request) 25 mg, Oral, NIGHTLY, First dose on Arin 11/07/18 at 2100, Until Discontinued, Routine carvedilol (COREG) tablet 3.125 mg 164 (Given - Provider: Sakshi Washington RN) 0820 (Given - Provider: Yuni Almendarez, BRYAN) 3.125 mg, Oral, 2 TIMES DAILY WITH MEALS , First dose on Sun11/07/18 at 1700, Until Discontinued, Routine ceFEPime (MAXIPIME) 1g vial attach to so dium chloride 0.9% 100 mL Mini-Bag Plus (COMPLETED) 1999 (New Bag - Provider: Stephen Sanchez, BRYAN)2030 (Stopped - Provider: Ginny Sanchez, BRYAN) 0409 (New Bag - Provider: Ginny bean RN)0439 (Stopped - Provider: Ginny Sanchez RN) 1 g, Intravenous, EVERY 8 HOURS, 2 doses , First dose on Sun11/07/18 at 2000, Last dose on Sun11/08/18 at 0400, Administer over 30 Minutes, Indication for (Active or Suspected): Prophylaxis docusate sodium (COLACE) capsule 100 mg 2099 (Not Given - Provider: Ginny Sanchez RN - Reason: Patient/family refused) 0820 (Given - Provider: Yuni Almendarez, RN) 100 mg, Oral, 2 TIMES DAILY, First dose on Sun11/07/18 at 2100, Until Discontinued, Routine gabapentin (NEURONTIN) capsule 600 mg 14 44 (Given - Provider: Maxine Hung, RN)2007 (Given - Provider: Ginny Sanchez, BRYAN) 0820 (Given - Provider: Yuni Almendarez, BRYAN) 600 mg, Oral, 3 TIMES DAILY, First dose on Sun11/07/18 at 1500, Until Discontinued, Routine gentamicin (GARAMYCIN) 160 mg in sodium chloride 0.9% 104 mL (COMPLETED) 1134 (New Bag - Provider: Pallavi Moore) 160 mg, Intravenous, DIRECTIONAL DRILL OPERATOR TO O.R., 1 dose, Arin 11/07/18 at 1030, Administer over 60 Minutes, This medication may have an associated drug lab level. Please check for lab orders. Warning Vesicant/Irr itant Medication , Day of Surgery (Da y of Procedure), Indication for (Active or Suspected): Prophylaxis insulin lispro (HumaLOG) VIAL injection 1-4 Units(Linked Bear up 1) 1645 (Given - Provider: Sakshi Washington, RN) 0702 (Given - Provider: Ginny Sanchez, RN)1144 (Given - Provider: Yuni Almendarez, RN) 1-4 [...] so., Routine lisinopril (PRINIVIL;ZESTRIL) tablet 5 mg 08 (Given - Provider: Yuni Almendarez, RN) 5 mg, Oral, DAILY, First dose on 10/21 at 0900, Until Discontinued, Routine sodium chloride 0.9 % flush 5 mL 194 (Jean Pierre smalls - Provider: Ginny Sanchez, RN)2100 (Not Given - Provider: Ginny Sanchez, BRYAN - Reason: See comment - Comment: flush given earlier per pt request) 0822 (Given - Provider: Yuni Almendarez, RN) 5 mL, Intravenous, 2 TIMES DAILY, [...] Sanchez, BRYAN)2332 (New Bag - Provider: Ginny Sanchez, RBYAN) 1124 (Stopped - Provider: Yuni morin RN) [...] Start ing Arin 11/07/18 at 1605, Until 11/08/18 at 1658, Low blood sugar, For BG [...] Until Sun11/08/18 at 1658, Nausea, Vomiting, If multiple antiemetics are ordered, use ondansetron first. PO Preferred. If patient unable to take PO, may give IV if ordered. May repeat times one in 45 minutes if ineffective., Recovery (Recovery-Hospital Unit), Routine oxyCODONE (ROXICODONE) immediate release tablet 10-15 mg(Stacey ked Group 4) 1445 (See Alternative - Provider: Maxine Hung RN)0675 (Given - Provider: Sakshi Washington RN) 1846 (Given - Provider: Violeta Luis Alberto, RN)0942 (Given - Provider: Yuni Almendarez, RN) 10-15 mg, Oral, EVERY 4 HOURS PRN, Start ing Arin 11/07/18 at 1412, Until Sun11/08/18 at 1658, Pain, severe pain (7-10), Initial dose 10mg. If pain control not adequate in 60 minutes, give additional 5mg, Routine oxyCODONE (ROXICODONE) immediate release tablet 5-10 mg(Link ed Group 4) 1445 (Given - Provider: Maxine Hung RN)9413 (See Alternative - Provider: Sakshi Washington RN) 0419 (See Alternative - Provider: Violeta Sahu, BRYAN)0942 (See Alternative - Provider: Yuni Almendarez, BRYAN) 5-10 mg, Oral, EVERY 4 HOURS PRN, Starti ng Arin 11/07/18 at 1412, Until Sun11/08/18 at 1658, Pain, moderate pain (4-6), Initial dose 5mg. If pain control not adequate in 60 minutes, give additional 5mg, Routine sodium chloride 0.9 % flush 5-20 mL 5-20 mL, Intravenous, EVERY 1 MIN PRN, S tarting Arin 11/07/18 at 1008, Until Sun11/08/18 at 1658, flush, Flush pertains to all indwelling lines. Flush per protocol found in the job aid using the link provided on this medication record., Routine sodium chloride 0.9 % flush 5-20 mL 5-20 mL, Intravenous, EVERY 1 MIN PRN, S tarting Arin 11/07/18 at 1605, Until Sun11/08/18 at 1658, flush, Flush pertains to all indwelling lines. Flush per protocol found in the job aid using the link prov ided on this medication record., Recovery (Recovery-Hospital Uni t), Routine Linked Groups Order Group 1: POCT Fingerstick Glucose (CANCELED) Routine, 4 TIMES DAILY BEFORE MEALS & AT BEDTIME, First occurrence on Arin 11/07/18 at 1700, Until Specified
Consider choosing FOUR [...] at 1605, Until 11/08/18 at 1658, Nausea, Vomiting
If multiple antiemetics are ordered, use ondansetron first. PO Preferred. If patient unable to take PO, may give IV if ordered. May repeat times one in 45 minutes if ineffective.
Recovery (Recovery-Hospital Unit), Routine Or ondansetron (ZOFRAN) injection 4 mgJump to med 4 mg, Intravenous, EVERY 8 HOURS PRN, St arting Arin 11/07/18 at 1605, Until Sun11/08/18 at 1658, Nausea
May repeat times one [...]
Routine documented in this encounter Care Teams Natural Fabricator Relationship Specialty Start Date End Date Albert Zuleta MD PCP - General Family Medicine 01/17/17 10/26/21 [address] [place] [id number] documented as of this encounter
--- OUTSIDE RECORDS SUMMARY | 2022-02-08 01:57 | XMS_ITS | Encounter Summary ---
:1960 Author Organization [facility] [place] [address] Care Team Providers Name Role Phone Albert [...] Expiration Date Visits Requ ested Visits Authorized [id number] 1 1 Encounter Details Date Type Department Care Team Description 11/07/2018 Anesthesia Event Main Operating Room Ryan Jhaveri MD [facility] [place] [address] [facility] Pallavi Moore MD [facility] ANESTHESIOLOG[place] [address] [facility] [place] [address] Anesthesia Record Procedure Summary Procedure Name Responsible Anesthesia Start Anesthesia Stop Time Anesthesiologist Time NEPHROLITHOTOMY, Ryan Ozuna MD 11/07/18 1112 9 1403 (PCNL) PERCUTANEOUS, OVER 2CM (WRVU 23.5) (Left Flank) Events Date Time Event Comment 11/07/2018 1031 1112 AN Verify 1112 Start 1115 An Start Data 1124 An Induction 1128 An Intubation 1153 Anesthesia Ready 1349 Extubation/LMA Out 1353 an stop data 1400 Recovery or ICU Handoff Patient care was transferred to the destination unit staff after review of the patient's medica l history, current anesthetic/surgi beverley status and plan, according to the Provider Handoff Checklist. 1403 Stop Name Total Midazolam 2 mg fentaNYL 100 mcg IV Lidocaine 40 mg Propofol 220 mg Rocuronium 100 mg Ondansetron 8 mg Dexamethasone 8 mg Neostigmine 5 mg Glycopyrrolate 0.8 mg gentamicin (GARAMYCIN) 160 mg in sodium chloride 0.9% 104 mL 160 mg PHENYLephrine INF 2,340 mcg cefTRIAXone 2 g magnesium sulfate bolus from bag 2 g lactated ringers infusion 550 mL Agents Name O2 Air N2O Sevoflurane (et) Blood No blood administrations on file. Lines, Drains, and Airways Type Details Placement Removal Incision flank; LDA not present 11/07/18 1427 by 03/07/19 0000 by upon assessment; 03/07/19 Avani Aly RN Incision 07/10/18; other (see 07/10/18 0000 by 03/07/19 0 000 by comments) (Rt Kassy Guevara RN Ayotte, Anne L , RN ureteral/cysto procedure); LDA not present upon assessment; 03/07/19 Incision 09/26/18; 1517; (back); 09/26/18 1517 by 9 0000 by LDA not present upon Barley, BRYAN Washington Anne L, forensic materials engineer; 03/07/19 PIV 11/07/18; 1018; 11/07/18 1018 by 11/08/18 1445 b y metacarpal vein (top of DuranSarah RN Bo bbin, Jennifer A, hand), left; RN sghk-dys-kyqdaw catheter system; 20 gauge, 1 in length; Lonnie Moura RN; distraction, intradermal injection, appears comfortable, tolerated well; 0; 11/08/18; 1445 ETT Mask Ventilation: Easy 11/07/18 1133 by Oscar, 1349 by (1); ETT Type: Cuffed, MD Oscar Stephen Lin zi B, MD Oral; ETT Size: 7.5 mm; Billy Blade: 2; Notes: Asleep, Pre-O2; Attempts: 1; Laryngoscopy Grade: 1; ETT Placement Verified By: Auscultation, Capnometry, Visual; Secured at Teeth: 21 cm; Inserted by: MD Oscar Urethral Catheter 11/07/18; 1239; Surgery 11/07/18 1239 by 11/08 1257 by longer than 2 hours, Maira oM RN Bobb inYuni, Urologic surgery; RN indwelling double lumen catheter; latex; 14; inserted at this facility; 1; 10; 10; none; leg bag to dependent drainage; 11/08/18; 1257 Nephrostomy Tube 11/07/18; 1330; left 11/07/18 1330 by 11/08/18 1445 by flank; leg bag to Maira Mo RN Bobbin, Jennifer A, dependent drainage; RN 11/08/18; 1445 documented in this encounter Social History Tobacco [...] encounter OR Notes Anesthesia Postprocedure Evaluation - Ryan Ozuna MD - 11/07/2018 3:23 PM EDT [facility] Department of Anesthesiology Post-procedure Note Patient: Blossom Samayoa Procedure Summary Date: 11/07/18 Room / Location: [address] MAIN OR Anesthesia Start: 1112 Anesthesia Stop: 1403 Procedures: NEPHROLITHOTOMY, (PCNL) PERCUTANEOUS, OVER 2CM (WRVU 23.5) (Left Flank) NEPHROSTOMY CATHETER, PERC, INC DX NEPHROSTOGRAM/URETEROGRAM, IMG GUIDANCE (WRVU 4.25) (Left Flank) CYSTOURETEROSCOPY, DIAGNOSTIC (WRVU 5.75) (Left Ureter) MODIFIER HOLMIUM LASER (N/A Ureter) ULTRASOUND USE (WRVU 0.63) (Left Ureter) FLUOROSCOPY (WRVU 0.17) (N/A Ureter) RENAL ENDOSCOPY W\FULG, W\WO\BX, VIA NEPHROSTOMY (WRVU 6.61) (Left Flank) Diagnosis: (LEFT RENAL STONES) Surgeon: Crow Galvin Jr., MD Responsible Provider: Ryan Ozuna MD Anesthesia Type: general ASA Status: 3 All Anesthesia Providers: Anesthesiologist: Ryan Ozuna MD Smudger: Pallavi Moore MD Vitals Value Taken Time BP 135/63 11/07/2018 3:00 PM Temp Pulse 66 11/07/2018 3:21 PM Resp 19 11/07/2018 3:21 PM SpO2 87 % 11/07/2018 3:21 PM Pain Level 5 11/07/2018 2:45 PM Vitals shown include unvalidated device data. Patient Location: PACU/[facility] Level of Consciousness: Awake and Alert Pain Management: Satisfactory Analgesia PONV: None Cardiovascular Status: At Baseline and Hemodynamically Stable Respiratory Status: At Baseline and Room Air Postoperative Fluid Status: Intravascular EUvolemia Possible Anesthetic Complications: NONE apparent at time of evaluation Final Primary Anesthesia Type: General (The anesthetic type performed was the same as planned.) Comments: Ryan Ozuna MD Anesthesia Preprocedure Evaluation - Ryan Ozuna MD - 11/06/2018 3:34 PM EDT Pre-Anesthesia Evaluation for: Blossom Samayoa a 57 y.o. female. Procedure(s): NEPHROLITHOTOMY, (PCNL) PERCUTANEOUS, OVER 2CM (WRVU 23.5) NEPHROSTOMY CATHETER, PERC, INC DX NEPHROSTOGRAM/URETEROGRAM, IMG GUIDANCE (WRVU 4.25) CYSTO, RETROGRADE, URETEROPYELOGRAPHY, W/PCNL (WRVU 2.37) CYSTOURETEROSCOPY, DIAGNOSTIC (WRVU 5.75) MODIFIER HOLMIUM LASER Patient Active Problem List Diagnosis ??? HTN (hypertension) ??? Gastroesophageal reflux ??? [...] ??? CHF (congestive heart failure) diag 2016 [facility] ??? Chronic lung disease sarcoidosis ??? [...] failure 'don't know if it's failure ??? 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 Mental health problem ??? Obstructive sleep apnea diag 2007 ??? Osteoma of ear canal ??? Vertigo balance prob,last fall early Jun. Past Surgical History: Procedure Laterality Date ??? PRG FLUOROSCOPY EXAM UP TO 1 HR PHY OR OT HLTH CARE PROV N/A 09/26/2018 FLUOROSCOPY (WRVU 0.17) performed by Crow Galvin Jr[facility] ??? PRG US GUIDE INTRAOP Right 09/26/2018 ULTRASONIC GUIDANCE, INTRAOP (WRVU 1.2) performed by Crow Galvin Jr., MD at [facility] ? ? PRO CYSTO W URETEROSCOPY &/OR PYELOSCOPY, DX Right 09/26/2018 CYSTOURETEROSCOPY, DIAGNOSTIC (WRVU 5.75) performed by Crow Galvin Jr., MD at [facility] ??? PRO CYSTOSCOPY, INSERT URETERAL STENT Right 07/10/2018 CYSTO, STENT PLACEMENT (WRVU 2.82) performed by Viky Sears MD at [facility] OR ??? PRO CYSTOSCOPY, REMV CALCULUS, COMPLIC Right 09/26/2018 CYSTO, REMOVAL OF STENT, FOREIGN BODY, CALCULUS, COMPLICATED (WRVU 5.2) performed by Crow Galvin MD at [facility] ??? PRO CYSTOURETHROSCOPY, URETER CATHETER Right 07/10/2018 CYSTO, RETROGRADE, URETEROPYELOGRAPHY (WRVU 2.37) performed by Viky Sears MD at [facility] ??? PRO CYSTOURETHROSCOPY, URETER CATHETER Right 09/26/2018 CYSTO, RETROGRADE, URETEROPYELOGRAPHY, W/PCNL (WRVU 2.37) performed by Crow Galvin Jr., MD at [facility] ??? PRO PERCUT REMV KID STONE, 2+ CM Right 09/26/2018 NEPHROLITHOTOMY, (PCNL) PERCUTANEOUS, OVER 2CM (WRVU 23.5) performed by Crow Galvin Jr., MD at [facility] ? ? PRO PLMT NEPHROSTOMY CATH PRQ NEW ACCESS RS&I Right 09/26/2018 NEPHROSTOMY CATHETER, PERC, INC DX NEPHROSTOGRAM/URETEROGRAM, IMG GUIDANCE (WRVU 4.25) performed byCrow Galvin Jr., MD at [facility] OR Social History Tobacco Use ??? Smoking status: Former Smoker Packs/day: 1.00 Years: 30.00 Pack years: 30.00 Types: Cigarettes Last attempt to quit: 07/23/2016 Years since quittin.2 ??? Smokeless tobacco: Never Used Substance Use Topics ??? Alcohol use: No Frequency: Never Comment: 3 X a year Social History Substance and Sexual Activity Drug Use Not Currently ??? Types: Marijuana, Pain Pills Comment: rarely [...] >3 FB Neck ROM: full Cardiovascular Assessment: Pulmonary Assessment: Dental Assessment: Misc Assessment: Anesthesia Plan: ASA 3 general, with a(n) intravenous induction Blsosom Samayoa is a 57 y.o.137kg female former smoker with h/o L renal stones presenting for Procedure(s): NEPHROLITHOTOMY, (PCNL) PERCUTANEOUS, OVER 2CM (WRVU 23.5) NEPHROSTOMY CATHETER, [employer] DX NEPHROSTOGRAM/URETEROGRAM, IMG GUIDANCE (WRVU 4.25) CYSTO, RETROGRADE, URETEROPYELOGRAPHY, W/PCNL (WRVU 2.37) CYSTOURETEROSCOPY, DIAGNOSTIC (WRVU 5.75) MODIFIER HOLMIUM LASER with Dr. Galvin. The patient's past medical history, past surgical history, medications, and allergies were reviewed and notable h/o LBBB, sarcoid, DM, chronic pain, COPD, and GERD Underwent GA in September for cysto without difficulty Anesthetic Plan: GA with LMA/ETT Standard ASA monitoring Adequate IV access The patient was informed of the risks, benefits and alternatives of anesthesia. These risks included, but were not limited to, post-operative nausea and/or vomiting, pain, sore throat, dental/lip trauma, and other rare but serious complications such as major organ damage, awareness, severe allergic reactions, position-related nerve injuries, and need blood transfusions. All questions sought and answered. Consent was signed and placed in chart. Pallavi Moore MD, Pg# [id number] 11/06/2018 Informed Consent: Plan discussed with resident. PAT Clinic Note documented in this encounter Plan of Treatment Upcoming Encounters Date Type Specialty Care Team Description 03/15/2022 Office Visit Neurology Ryann Barfield APRN [facility] [address] [place] [address] 03/23/2022 Appointment Radiology Hailey Mcclendon MD [facility] [address] [place] [address] 03/23/2022 Laboratory Appointment Lab 03/23/2022 Office Visit Gastroenterology Hailey Mcclendon MD [facility] [address] [place] [address] 05/23/2022 Procedure visit Maxillofacial Surgery Corby Montes MD [facility] [address] [place] [address] documented as of this encounter Visit Diagnoses Not on filedocumented in this encounter Administered Medications Inactive Administered Medications - up to 3 most recent administrations Medication Order MAR Action Action Date Dose Rate Site cefTRIAXone (ROCEPHIN) injection Given 11/07/2018 11:49 AM EDT 2 g PRN, Starting on Arin 11/07/18 at 1149, Until Arin 11/07/18 at 1405, Anesthesia Intra-op, Routine dexamethasone (DECADRON) injection Given 11/07/2018 11:34 AM EDT 8 mg PRN, Starting on Arin 11/07/18 at 1134, Until Arin 11/07/18 at 1405, Anesthesia Intra-op, Routine fentaNYL 50 mcg/mL multi-dose injection Given 11/07/2018 12:38 PM EDT 50 mcg PRN, Starting on Arin 11/07/18 at 1119, Until Arin 11/07/18 at 1405, Anesthesia Intra-op, Routine Given 11/07/2018 11:19 AM EDT 50 mcg gentamicin (GARAMYCIN) 160 mg in sodium New Bag 11/07/2018 11:34 A M EDT 160 mg chloride 0.9% 104 mL 160 mg, Intravenous, PR[employer] FEEDER TO O.R., 1 dose, On Arin 11/07/18 at 1030, Administer over 60 Minutes, This medication may have an associated drug lab level. Please check for lab orders. Warning Vesicant/Irritant Medication , Day of Surgery (Day of Procedure), Indication for (Active or Suspected): Prophylaxis glycopyrrolate (ROBINUL) multi-dose inje ction Given 11/07/2018 1:30 PM EDT 0.8 mg PRN, Starting on Arin 11/07/18 at 1330, Until Arin 11/07/18 at 1405, Anesthesia Intra-op, Routine lactated ringers infusion New Bag 11/07/2018 11:12 AM EDT 1,000 mL, at 100 mL/hr, Intravenous, CONTINUOUS, Starting on Arin 11/07/18 at 1030, Until Arin 11/07/18 at 1537, Day of Surgery (Day of Procedure) New Bag 11/07/2018 10:20 AM EDT 1,000 mLs 100 mL/hr lidocaine (PF) (XYLOCAINE) 100 mg/5 mL (2 %) Given 11:28 AM EDT 40 mg injection PRN, Starting on Arin 11/07/18 at 1128, Until Arin 11/07/18 at 1405, Anesthesia Intra-op, Routine magnesium sulfate Bolus from bag Given 11/07/2018 1:07 PM EDT 2 g PRN, Starting on Arin 11/07/18 at 1307, Until Arin 11/07/18 at 1405, Anesthesia Intra-op, Routine midazolam (PF) (VERSED) multi-dose injec tion Given 11/07/2018 11:19 AM EDT 2 mg PRN, Starting on Arin 11/07/18 at 1119, Until Arin 11/07/18 at 1405, Anesthesia Intra-op, Routine neostigmine (BLOXIVERZ) injection Given 11/07/2018 1:30 PM EDT 5 mg PRN, Starting on Arin 11/07/18 at 1330, Until Arin 11/07/18 at 1405, Anesthesia Intra-op, Routine ondansetron (ZOFRAN) injection Given 11/07/2018 1:27 PM EDT 8 mg PRN, Starting on Arin 11/07/18 at 1327, Until Arin 11/07/18 at 1405, Anesthesia Intra-op, Routine PHENYLephrine (JOCELYN-SYNEPHRINE) 20 New Bag 11/07/2018 11:34 AM 20 mcg/min 15 mL/hr mg in sodium chloride 250 mL EDT (standard ADULT & Pedi greater than 20kg) infusion CONTINUOUS PRN, Starting on Arin 11/07/18 at 1134, Until Arin 11/07/18 at 1405, Anesthesia Intra-op, Routine propofol (DIPRIVAN) 10 mg/mL bolus injection Given 9 1:38 PM EDT 20 mg (Anesthesia) PRN, Starting on Arin 11/07/18 at 1124, Until Arin 11/07/18 at 1405, Anesthesia Intra-op Given 11/07/2018 11:24 AM EDT 200 mg rocuronium (ZEMURON) multi-dose injectio n Given 11/07/2018 12:20 PM EDT 40 mg PRN, Starting on Arin 11/07/18 at 1124, Until Arin 11/07/18 at 1405, Anesthesia Intra-op, Routine Given 11/07/2018 11:24 AM EDT 60 mg documented in this encounter Care Teams Supervisor Front Relationship Specialty Start Date End Date Albert Zuleta MD PCP - General Family Medicine 01/17/17 10/26/21 [place] [address] documented as of this encounter
--- OUTSIDE RECORDS SUMMARY | 2022-02-08 01:57 | XMS_ITS | Encounter Summary ---
:1960 Author Organization [facility] [place] [address] Care Team Providers Name Role Phone Albert [...] Expiration Date Visits Requ ested Visits Authorized [id number] 1 1 Encounter Details Date Type Department Care Team Description 11/07/2018 Laboratory Appointment Lab at [facility] Hyperparathyroidism, [place] [id number] Social History Tobacco Use Types Packs/Day Years [...] Visit Neurology Ryann Barfield, [facility] [address] [place] [place] [address] 03/23/2022 Appointment Radiology Krishna Mcclendon MD [facility] [address] [place] [address] 03/23/2022 Laboratory Appointment Lab 03/23/2022 Office Visit Gastroenterology Krishna Mcclendon MD [facility] [address] [place] [address] 05/23/2022 Procedure visit Maxillofacial Surgery Corby Montes MD [facility] [address] [place] [address] documented as of this encounter Procedures Procedure Name Priority Date/Time Associated Diagnosis Comme nts PTH Routine 11/07/2018 8:57 AM Hyperparathyroidism, R esults for this EDT primary procedure are i n the results section. CALCIUM IONIZED Routine 11/07/2018 8:57 AM Hyperparathyroidism , Results for this SERUM EDT primary procedure are i n the results section. VITAMIN D, Routine 11/07/2018 8:57 AM Hyperparathyroidism, R esults for this 25-HYDROXY EDT primary procedure are i n the results section. CALCIUM Routine 11/07/2018 8:57 AM Hyperparathyroidism, R esults for this EDT primary procedure are i n the results section. documented in this encounter Results (ABNORMAL) Calcium (11/07/2018 8:57 AM EDT) athologist Signature Calcium 11.6 (H) 8.5 - 10.5 KRISHNA reddy/dL [facility] Specimen Anatomical Collection Method Collection Time Receive d Time (Source) Location / / Volume Laterality Blood specimen 11/07/2018 8:57 AM 019 9:04 (specimen) EDT AM EDT Resulting Agency Comment Spec In Lab Emily Mcmahon MD CHEMISTRY ORDERABLES Performing Organization Address City/[facility]/ZIP Code Phon e Number [address] PTH (11/07/2018 8:57 AM EDT) athologist Signature PTH 42 15 - 65 KRISHNA MONICA pg/mL [facility] Specimen Anatomical Collection Method Collection Time Receive d Time (Source) Location / / Volume Laterality Blood specimen 11/07/2018 8:57 AM 019 9:04 (specimen) EDT AM EDT Resulting Agency Comment Spec In Lab Emily Mcmahon MD CHEMISTRY ORDERABLES Performing Organization Address City/[facility] [place] [address] (ABNORMAL) Calcium, Ionized, Serum (11/07/2018 8:57 AM EDT) athologist [facility] serum 1.42 (H) 1.15 - 1.33 [facility] MONICA mmol/L [facility] Comment: Note: Total bilirubin higher than 20 mg/ dL may lead to falsely low ionized calcium. Specimen Anatomical Collection Method Collection Time Receive d Time (Source) Location / / Volume Laterality Blood specimen 11/07/2018 8:57 AM 019 9:04 (specimen) EDT AM EDT Resulting Agency Comment Spec In Lab Emily Mcmahon MD CHEMISTRY ORDERABLES Performing Organization Address City/[facility]/ZIP [facility] Phon e Number [address] Vitamin D, 25-Hydroxy (11/07/2018 8:57 AM EDT) athologist Signature 25-OH Vit D 32 30 - 100 [facility] Total ng/mL [facility] Comment: Deficient <10 ng/mL Insufficient 10 to 29 ng/mL Sufficient 30 to 100 ng/mL Potential Intoxication >100 ng/mL According to the [place] National Osteoporosi s Foundation, Vitamin D concentrations >30 ng/mL are sufficient to protect bone health. ??The National Kidney Foundation has similarly stated that pat ients with Vitamin D concentrations <30ng/mL should be considered to be insu fficient or deficient. http://[employer].riskmethods/nkf-guidelines http://[employer].riskmethods/nejm-VitD The [employer] Vitamin D Immunoassay detec [...] Organization Address City/State/[place] [address] documented in this encounter Visit Diagnoses Diagnosis Hyperparathyroidism, primary Primary hyperparathyroidism documented in this encounter Care Teams Institutional Research Director Relationship Specialty Start Date End Date Albert Zuleta MD PCP - General Family Medicine 01/17/17 10/26/21 [address] [facility] [id number] documented as of this encounter
--- OUTSIDE RECORDS SUMMARY | 2022-02-08 01:57 | XMS_ITS | Encounter Summary ---
:1960 Author Organization [facility] [place] [address] Care Team Providers Name Role Phone Albert Zuleta MD Primary Care Provider Encounter Details Date Type Department Care Team Description 10/07/2018 Telephone Urology Janell Wilkins MD [facility] [place] [phone] UROLOGY DEPT [phone] [place], [place] [address] (Wo rk) Social History Tobacco [...] this encounter Miscellaneous Notes Telephone Encounter - Janell Wilkins MD - 10/07/2018 3:01 PM EDT Patient called looking for pain medications. She stated that yesterday she took 6 of her Ralph tablets (supposed to take 2) because she overdid it and was chasing the pain. She states that she has had some incisional pain, but has no signs of infection (redness, drainage, swelling). The incision is healed over and dry by her assessment. She states that much of her pain comes from her diabetic neuropathy, which is managed by her PCP. I suggested that she can try lidocaine patches for topical pain assistance. Otherwise, she is POD11 from her procedure and should speak with her PCP regarding chronic pain issues. She is in agreement. I offered to have her come in for a wound assessment, but she declined stating that the wound looks great. She has a clinic appointment later this week for stent removal. Janell Wilkins MD documented in this encounter Plan of Treatment Upcoming Encounters Date Type Specialty Care Team Description 03/15/2022 Office Visit Neurology Ryann Barfield APRN [facility] [address] [place] [address] 03/23/2022 Appointment Radiology Hailey Mcclendon MD [facility] [place] [address] 03/23/2022 Laboratory Appointment Lab 03/23/2022 Office Visit Gastroenterology Hailey Mcclendon MD [facility] [place] [address] 05/23/2022 Procedure visit Maxillofacial Surgery Corby Montes MD [facility] [place] [address] documented as of this encounter Visit Diagnoses Not on filedocumented in this encounter Care Teams Pipe Line Maintenance Supervisor Relationship Specialty Start Date End Date Albert Zuleta MD PCP - General Family Medicine 01/17/17 10/26/21 [address] [place] [address] documented as of this encounter
--- OUTSIDE RECORDS SUMMARY | 2022-02-08 01:58 | XMS_ITS | Encounter Summary ---
:1960 Author Organization [facility] [place] [address] Care Team Providers Name Role Phone Albert Zuleta MD Primary Care Provider Reason for Referral Consultation (Routine) - Closed Specialty Diagnoses / Procedures Referred By Contact Refer red To Contact Infectious Diseases Diagnoses Recurrent UTI (urinary tract infection) Bacteremia due to Gram-negative bacteria Rah Rogers, Rah Rogers MD MD [facility] [address] INFECTIOUS DISEASE INFECTIOUS DISEASE [place], [place] [id number] [place] [phone] Fax: Referral ID Status Reason Start Date Expiration Date Visits V isits Requested Authorized [id number] Closed Assume 10/01/2018 10/01/2019 1 1 Subset of Care Reason for Visit Auth/Cert Specialty Diagnoses / Procedures Referred By Contact Refer red To Contact Diagnoses Nephrolithiasis Right renal stone Post-Op monitoring Procedures PRO PERCUT REMV KID STONE, 2+ CM PRO CYSTO W URETEROSCOPY &/OR PYELOSCOPY, DX PRO CYSTOSCOPY, REMV CALCULUS, SIMPLE PRO CYSTOSCOPY, INSERT URETERAL STENT PRO PLMT NEPHROSTOMY CATH PRQ NEW ACCESS RS&I PRO CYSTOURETHROSCOPY, URETE R CATHETER NEPHROLITHOTOMY, (PCNL) PERCUTANEOUS, OVER 2CM (WRVU 23.5) CYSTOURETEROSCOPY, DIAGNOSTIC (WRVU 5.75) MODIFIER HOLMIUM LASER CYSTO, REMOVAL OF STENT, FOREIGN BODY OR CALCULUS, SIMPLE (WRVU 2.81) CYSTO, STENT PLACEMENT (WRVU 2.82) NEPHROSTOMY CATHETER, [facility] INC DX NEPHROSTOGRAM/URETEROGRAM, IMG GUIDANCE (WRVU 4.25) CYSTO, RETROGRADE, URETEROPYELOGRAPHY, W/PCNL (WRVU 2.37) Referral ID Status Reason Start Date Expiration Date Visits Requ ested Visits Authorized [id number] 1 1 Encounter Details Date Type Department Care Team Description 09/26/2018 - Hospital 4 [facility] [place], Crow M Tachycardia; 10/01/2018 Encounter Charlestongregorio Mandujano Jr., MD Recurrent UTI (urinary tract infection); [facility] Bacteremia due to Gram-negat kayla bacteria; [facility] Nephrolithiasis [place] [id number] [phone] Social History Tobacco Use Types Packs/Day Years [...] Sign Reading Time Taken Comments Blood Pressure 110/54 10/01/2018 12:28 PM EDT Pulse 69 09/29/2018 4:43 AM EDT Temperature 36.9 ??C (98.4 ??F) 10/01/2018 12:28 PM EDT Respiratory Rate 20 10/01/2018 12:28 PM EDT Oxygen Saturation 97% 10/01/2018 12:28 PM EDT Inhaled Oxygen Concentration - - Weight 137.4 kg (303 lb) 09/27/2018 3:40 AM EST Height 167.6 cm (5' 6) 09/27/2018 3:40 AM EST Body Mass Index 48.91 09/27/2018 3:40 AM EST documented in this encounter Discharge Summaries Marquis Christopher MD - 10/01/2018 3:03 PM EDT Discharge Summary Patient Name: Blossom Samayoa Patient Age: 57 y.o. Language: Luxembourger Race: Declines to List Ethnicity: Not nor Admit date: 09/26/2018 Discharge date: 10/01/2018 Attending Physician: Crow Galvin Jr., MD Discharge Diagnoses (Hospital Problems) and Secondary Diagnoses (Chronic Problems): Active Hospital Problems Diagnosis ??? Nephrolithiasis Resolved Hospital Problems No resolved problems to display. Active Non-Hospital Problems Diagnosis ??? HTN (hypertension) ??? Gastroesophageal reflux ??? PTSD (post-traumatic stress disorder) ??? COPD (chronic obstructive pulmonary disease) ??? Asthma ??? Anxiety ??? Depression ??? Former smoker ??? Chronic prescription opiate use ??? Ventral hernia ??? Cardiomyopathy ??? Type 2 diabetes mellitus, without long-term current use of insulin ??? History of herpes simplex infection ??? LBBB (left bundle branch block) ??? Morbid obesity with BMI of 50.0-59.9, adult ??? Sarcoidosis Operations/Major Procedures: Procedure(s): NEPHROLITHOTOMY, (PCNL) PERCUTANEOUS, OVER 2CM (WRVU 23.5) CYSTOURETEROSCOPY, DIAGNOSTIC (WRVU 5.75) CYSTO, REMOVAL OF STENT, FOREIGN BODY, CALCULUS, COMPLICATED (WRVU 5.2) NEPHROSTOMY CATHETER, [facility] DX NEPHROSTOGRAM/URETEROGRAM, IMG GUIDANCE (WRVU 4.25) CYSTO, RETROGRADE, URETEROPYELOGRAPHY, W/PCNL (WRVU 2.37) ULTRASONIC GUIDANCE, INTRAOP (WRVU 1.2) FLUOROSCOPY (WRVU 0.17) 09/26/2018 History of Presentation (from Dr. Galvin's clinic note 08/28/18): Blossom Samayoa is a 57 year old female who was recently admitted to the Medicine Service on 07/09/2019 for nausea, vomiting, leukocytosis and UTI. CT showed right hydronephrosis, large right UPJ stone and obstructing right UVJ stone, as well as a large left renal stone burden which was non-obstrcuting. Urology took her to the OR and placed a right ureteral stent with Dr. Sears on 07/09/2019. Urine cultures from [facility] showed Proteus Mirabilis. Blood cultures at [facility] showed no growth. He was discharged on a two-week course of Cefpodoxime. During this hospital stay, she was counseled on and consented for right PCNL in August, which has been scheduled for 09/05/2018. We also discussed the possibi lity of left PCNL a few months later. ?? Since her admission for the urolithiasis, she was also admitted to the General Surgery Service for an incarcerated incisional hernia with bowel obstruction on 07/22/2018. She was treated conservativelyand was discharged on 07/24/1018. ?? Ms. Samayoa reports that she has seen her local urologist, Dr. Zuleta, in [facility] for dysuria and hematuria. A culture was taken and she is now on a course of Keflex, which ends on 09/04/2018, the day prior to her PCNL. ?? Also of note, she has been recently diagnosed with obstructive sleep apnea. She has been prescribed a CPAP machine, but this does not come in the mail until 09/10/2018. ?? She is not a blood thinners currently as she stopped her daily ASA 81 mg yesterday. She does have anappointment with her systems analysis manager this afternoon. Hospital Course: Patient was admitted electively to [facility] via the same day surgery program and underwent the above procedure. She tolerated surgery well and was tranferred from the PACU to the general floor in good condition a few hours after surgery. Post op CT showed no residual Right sided stones .On POD #1 she was noted to have low urine output and an BERNARD with Cr elevation to 1.58 from 0.88, the patient was given IV fluids and both nephrostomy tubes were removed the afternoon of POD#1 and a few hours later the patient spiked an fever and had intermittent confusion- blood cx and UA were sent and Ceftriaxone was started. POD #3 she continued to be intermittently febrile, and blood cx prelim resulted +GNRs and UCxgrew proteus and pseudomonas- Ceftriaxone was switched to Cefepime and ID was consulted. POD #4 (3/) the patient remained afebrile, with stable vital signs, Cefepime continued with plan for outpatient antibiotics per ID. On POD 5 (3/) the patient remained afebrile, with stable vital signs, surveill ance blood cultures form 09/29 had now growth and she has met all criteria for discharge home with outpatient antibiotics through PICC line and VNA care: her pain is well controlled with medications by mouth, she is tolerating a regular diet, is voiding spontaneously without difficulties, and is up andambulating without complications. Plan for follow up with Dr. Galvin and Left PCNL scheduled for 11/07/2018 to address nonobstructing left renal stone. Vital Signs at Discharge: Weight: Wt Readings from Last 1 Encounters: 03// (!) 137.4 kg (303 lb) Height: Ht Readings from Last 1 Encounters: 03// 167.6 cm (5' 6) BMI: Body mass index is 48.91 kg/m??. Last value Range last 24 hrs Temperature Temp: 36.9 ??C (98.4 ??F) Temp: [36.7 ??C (98.1 ??F)-37.1 ??C (98.8 ??F)] Heart Rate Heart Rate: 69 Heart Rate: -- Blood Pressure BP: 110/54 BP: (103-141)/(44-68) Respiratory Rate Resp: 20 Resp: [18-20] SpO2 SpO2: 97 % SpO2: [95 %-98 %] Exam at Discharge: General: alert and oriented CV: RRR Pulm: CTAB Abd: Soft, non-tender Incision: Nephrostomy tube sites c/d/i Ext: WWP Functional and Cognitive Status: Ambulating and cognitively intact. Important Studies and Lab Data: Lab Results Component Value Date WBC 10.3 (H) 09/30/2018 RBC 3.35 (L) 09/30/2018 HGB 10.1 (L) 09/30/2018 HCT 32.7 (L) 09/30/2018 MCV 97.6 (H) 09/30/2018 MCH 30.1 09/30/2018 MCHC 30.9 (L) 09/30/2018 PLATELET 186 09/30/2018 RDWCV 12.6 09/30/2018 Lab Results Component Value Date NA 138 09/30/2018 K 3.9 09/30/2018 CL 101 09/30/2018 CO2 23 09/30/2018 BUN 13 09/30/2018 CREATININE 0.83 09/30/2018 GLUCOSE 176 09/30/2018 GLUCFASTING 241 (H) 09/12/2018 CALCIUM 10.7 (H) 09/30/2018 Studies: 09/28 CT Abd/Pelvis without contrast 1. Postoperative changes of the right kidney without retained stone. 2. Unchanged 1.9 cm nonobstructing calculus in the left consistent. 3. Left abdominal wall hernia containing small bowel without incarceration. Pending Studies and Lab Data: No current labs Discharge Conditions/Prognosis: Stable Discharge to: Home Updated Allergies/ADRs: Allergies Allergen Reactions ??? Anafranil [Clomipramine] give me the flu ??? Augmentin [Amoxicillin-Pot Clavulanate] Hives and Itching ??? Cis Free Text Allergy Ketamine. CIS - hallucinations ??? Erythromycin Hives and Itching ??? Macrobid [Nitrofurantoin Monohyd/M-Cryst] Causes depression ??? Sulfa (Sulfonamide Antibiotics) Hives Immunizations Given this Hospitalization: There is no immunization history for the selected administration types on file for this patient. Discharge Medications: Your Medications Some of the medications listed here do not show instructions, such as how often to take the medication. Ask your doctor or nurse how to use these medications. Specifically ask about this and similar medications: multivitamin (THERAGRAN) tablet Continued medications, unchanged Dose Details acetaminophen 325 mg Tab Commonly known as: TYLENOL Take 2 tablets by mouth every 6 hours. 650 mg Quantity: 30 tablet Refills: 1 aspirin 81 mg Chew Take 81 mg [...] 2 times daily. 1 tablet Refills: 0 INCRUSE ELLIPTA 62.5 mcg/actuation Dsdv [...] BY MOUTH TWICE A DAY Refills: 1 multivitamin Tab Commonly known as: THERAGRAN Refills: 0 spironolactone 25 mg Tab Commonly known as: ALDACTONE TAKE ONE TABLET BY MOUTH EVERY DAY Refills: 3 TRULICITY SUBQ Inject subcutaneously once a week. Refills: 0 Smoking Status at Discharge: Social History Tobacco Use Smoking Status Former Smoker ??? Packs/day: 1.00 ??? Years: 30.00 ??? Pack years: 30.00 ??? Types: Cigarettes ??? Last attempt to quit: 07/23/2016 ??? Years since quittin.1 Smokeless Tobacco Never Used Instructions Given to Patient at Discharge: Patient Instructions DISCHARGE INSTRUCTIONS FOLLOWING PCNL Call your doctor for: ??? fevers greater than 100.5 ??? severe nausea or vomiting ??? increasing pain not controlled by pain medications ??? increasing redness or drainage from incisions ??? The number for questions is [phone] before 5 PM weekdays and [phone] after 5 PM and weekends. Activity: Gradually increase activity with short frequent walks, three to four times a day. Avoid strenuous activities, like sports, lawn mowing, or heavy lifting more than 10-15 pounds. Wear loose, comfortable clothing. Do not drive while taking pain medication, or until your doctor permits it. Bathing and dressing change: You should not shower for 48 hours after surgery. Do not soak your back in a bathtub. Diet: It is extremely important to drink plenty of fluids after surgery, especially water. You may resume your regular diet, unless otherwise instructed Medications: You may take Tylenol (acetaminophen) or ibuprofen (Advil, Motrin) as directed [id number]. Take any prescriptions as directed. Follow up Appointments: Follow-up appointment will be scheduled with Dr. Galvin in 2 weeks for a hospital check and stent removal. Appointment will be mailed to you. Please call [phone] (clinic number for appointments) to confirm date and time of your appointment if you do not receive it. You have a ureteral stent in place. It is important to remember that a stent is not a permanent device and must be removed in a timely fashion. Failure to remove a stent may result in the need for moreprocedures. YOU HAVE AN APPOINTMENT FOR STENT REMOVAL ON 10/10/[address] Galvin. You also have Left sided PCNL ( stone removal) scheduled for 11/07/2018 General Instructions None Future Appointments and Orders Future Appointments and Orders Future Appointments Provider Department Dept Phone 10/10/2018 1:20 PM Crow Galvin Jr., MD; UROLOGY, PROCEDURE [facility] [place] Arrive at: Senior Gl Accountant Area [phone] 10/21/2018 10:00 AM Ace Henry MD [facility] [place] Arrive at: Senior Gl Accountant Area Future Orders Complete By Expires OPAT: Order / Recommendation for Post Discharge IV Antibiotic Management [IJE475 CPT(R)] As directed Process Instructions: If no progress note charted, please enter Clinical details in comments. Scheduling Instructions: Comments: Please Fax all results to: OPAT Program Infectious Disease Section [facility], [place] [address] FAX: Line care instructions per [facility] OPAT Program protocol. After hours, please contact the Infectious Disease Physician career consultant at . If this order was signed greater than 72 hours prior to [facility] discharge, please call to confirm the accuracy of this order. Questions: ID Diagnosis: Bacteremia; complicated UTI Microorganisms being treated: Proteus mirabilis (blood), Proteus mirabilis & Pseudomonas aeruginosa (urine) Antibiotic Allergies: Augmentin, Erythromycin, Sulfa, Macrobid Antibiotic (one line for each ABx): Cefepime 2 Grams IV Every 8 Hours Start date: 09/29/2018 Anticipated stop date: 10/13/2018 Labs: Every Sunday: CBC, CMP Comment - CBC w/Diff Last documented weight (kg): 137.4 kg (303 lb) Last documented height (cm): 167.6 cm (5' 6) Responsible Attending: Rah Rogers MD Referral to Home Health - at DISCHARGE [[id number] CPT(R)] As directed Process Instructions: Scheduling Instructions: Comments: DOCUMENTATION FOR VNA SERVICES (INCLUDING THOSE PATIENTS WITH MEDICARE COVERAGE REQUIRING HOME VNA SERVICES AND/OR HOSPICE SERVICES) PATIENT'S LOCATION: Blossom Cory [address] [id number] (home) Plant Etiologist's Name: Self In discussion with the attending physician, it is certified that this patient is under their care and that they, or a Nurse Practitioner,Clinical Nurse specialist or Physician Heel Sorter who is working directly with them, had a face to face encounter that meets the physician face to face encounter requirements with this patient on 09/27 The encounter with the patient was in whole, or in part, for the following medical condition, which is the primary reason for home health care services: Nephrolithiasis In discussion with the provider, it is certified that, based on their findings, the following services are medically necessary for home health services. To provide the following care/treatments with the clinical findings supporting the need for servicesas follows: HOME CARE ORDERS: RN ORDERS:Assess wound or incision, vital signs, cardiopulmonary status, nutrition, hydration, elimination, meds effectiveness and management; reinforce education re health issues HOME HEALTH CARE AGENCY: [facility] PHONE: [phone] FAX: [phone] Start of care: 24-48hrs after discharge FOR MEDICARE ONLY: In discussion with the attending physician, it is certified that the clinical findings support that this patient is homebound because absences from home require considerable and taxing effort due to: Unsteady Gait, poor balance , requiring assistive devices and/or assistance of another Please note that any additional orders needs or changes will need to be obtained from this patient'sPCP: Albert Zuleta MD [address] / [place] [address] All VNA agencies which cover the area of patient's residence have been reviewed, either verbally or in writing, and patient/family have chosen the home health care agency noted Questions: Agency name and contact information: [facility] Patient location post discharge: Home What services are requested: Registered Nurse Start date: Responsible MD post discharge contact info: PCP Follow-Up: Future Appointments Date Time Provider Department Center 10/10/2018 1:20 PM Crow Galvin Jr., MD [facility] 10/21/2018 10:00 AM Ace [facility] MD [facility] Primary Care Provider: Albert Zuleta MD [phone] Follow-up Recommendations for Providers: Please see discharge instructions. Call your doctor if: Please call your [...] F. Your care was managed by the Urology Team at [facility]. If you have any questions or concerns, please feel free to contact us. Provider Contact Information: Urology Clinic: [facility] (after business hours): documented in this encounter Discharge Instructions Patient InstructionsMarquis Christopher MD - 09/27/2018 8:53 AM EST DISCHARGE INSTRUCTIONS FOLLOWING PCNL Call your doctor for: ??? fevers greater than 100.5 ??? severe nausea or vomiting ??? increasing pain not controlled by pain medications ??? increasing redness or drainage from incisions ??? The number for questions is [phone] before 5 PM weekdays and [phone] after 5 PM and weekends. Activity: Gradually increase activity with short frequent walks, three to four times a day. Avoid strenuous activities, like sports, lawn mowing, or heavy lifting more than 10-15 pounds. Wear loose, comfortable clothing. Do not drive while taking pain medication, or until your doctor permits it. Bathing and dressing change: You should not shower for 48 hours after surgery. Do not soak your back in a bathtub. Diet: It is extremely important to drink plenty of fluids after surgery, especially water. You may resume your regular diet, unless otherwise instructed Medications: You may take Tylenol (acetaminophen) or ibuprofen (Advil, Motrin) as directed [id number]. Take any prescriptions as directed. Follow up Appointments: Follow-up appointment will be scheduled with Dr. Galvin in 2 weeks for a hospital check and stent removal. Appointment will be mailed to you. Please call [phone] (clinic number for appointments) to confirm date and time of your appointment if you do not receive it. You have a ureteral stent in place. It is important to remember that a stent is not a permanent device and must be removed in a timely fashion. Failure to remove a stent may result in the need for moreprocedures. YOU HAVE AN APPOINTMENT FOR STENT REMOVAL ON 10/10/[address] Galvin. You also have Left sided PCNL ( stone removal) scheduled for 11/07/2018 documented in this encounter Medications at Time [...] mouth 0 09/25/2019 25 mg Tablet nightly. cephALEXin (KEFLEX) 4 times daily. 0 11/01/2018 0 11/08/2018 500 mg Capsule CANNABIDIOL, CBD, Take by mouth as 0 [...] Take 2 tablets by 30 tablet 1 07/24/2018 11/2 08/2018 (TYLENOL) 325 mg mouth every 6 hours. [...] MOUTH TWICE A DAY mg magnesium) Tablet multivitamin 0 10/01/2009 11/06/2018 (THERAGRAN) tablet documented as of this encounter Progress Notes Kishore Mac, BRYAN - 10/01/2018 4:03 PM EDT Patient Name: Blossom Samayoa Patient Age: 57 y.o. Birthdate: 1960 Admit date: 09/26/2018 Attending Physician: Crow Galvin Jr., MD Pt being discharged to home with VNA services. Being discharged with PICC for extermination supervisor abx, has received education. Reviewed discharge paperwork at the bedside with the patient and the sister, who verbalized understanding of the discharge instructions. Sister is providing ride to home. Pt left unit via wheelchair with staff assist for discharge at 1640. Brandi Bolton RN - 10/01/2018 1:07 PM EDT Office of Care Management (OCM) / Wrist Closer(CM) ID has recommended IV antibiotics for 2 weeks. Patient has part D & most of medication is covered. Patient would prefer to go home. Sister is retired RN & can help. Teach done by ANGELITO regarding administration of IV push medication. VNA notified of discharge today with IV antibiotics every 8 hours Cefepime 2 Grams. VNA will see pradeep 10/02/18. PICC line placed in right arm. Brandi Bolton RN Case Manager Pager [phone] Leon Razo MD - 10/01/2018 7:49 AM EDT Images from the original note were not included. Urology Inpatient Progress Note ID: Blossom Samayoa is a 57 y.o. female w/ 1.6 cm right UPJ stone, as well as a 4-5 mm distal right ureteral stone s/p stent placement in June who is now POD 5 s/p right PCNL S/ 24h events - Afebrile overnight - Incontinent of urine overnight - Pain well controlle - Tolerating diabetic diet, no nausea - Surveillance blood culture from 09/29/2018 is no growth x 1 day O: Last value Range last 24hrs Temperature Temp: 36.8 ??C (98.2 ??F) Temp: [36.5 ??C (97.7 ??F)-37.1 ??C (98.8 ??F)] Heart Rate Heart Rate: 69 Heart Rate: -- Blood Pressure BP: 123/60 BP: (103-138)/(44-62) Respiratory Rate Resp: 20 Resp: [18-20] SpO2 SpO2: 95 % SpO2: [95 %-98 %] 09/30 0701 - 10/01 0700 In: 1367 [P.O.:1250; I.V.:117] Out: 4325 [Urine:4325] PE: Body mass index is 48.91 kg/m??. General: AOx3, NAD, conversant HEENT: PERRL, anicteric sclerae Cardiopulm: nonlabored breathing Abd: morbidly obese, soft, nontender, non-distended Back: R flank dressing CDI Ext: warm, well perfused, no edema Labs: Recent Labs 09/30/18 0518 09/29/18 0550 WBC 10.3* 9.5 HGB 10.1* 8.5* HCT 32.7* 26.9* PLATELET 186 148 Recent Labs 09/30/18 0518 09/29/18 0550 NA 138 138 K 3.9 3.7 CL 101 105 CO2 23 23 BUN 13 13 CREATININE 0.83 0.86 GLUCOSE 176 187 CALCIUM 10.7* 10.5 Microbiology: Results: Urine culture Cystoscopic Urine Abnormal Status: Final result (Collected: 09/26/2018 15:22) Result Information Date and Time: Resulted: 09/28/2018 09:44 Status: Final result ??-- Abnormal Component Results Specimen Information: Cystoscopic Urine ?? Component Value Urine Culture Abnormal 1,000-9,000 cfu/ml Proteus mirabilis 1,000-9,000 cfu/ml Pseudomonas aeruginosa Susceptibility Proteus mirabilis Pseudomonas aeruginosa MICROSCAN METHOD MICROSCAN METHOD Amikacin Sensitive Sensitive Ampicillin Resistant Ampicillin + Sulbactam Intermediate Aztreonam Sensitive Sensitive Cefazolin Intermediate Cefepime <=4 Sensitive 8 Sensitive Ceftazidime <=1 Sensitive <=1 Sensitive Ceftriaxone Sensitive Cefuroxime Sensitive Ciprofloxacin Resistant Resistant Gentamicin Resistant Sensitive Levofloxacin Resistant Intermediate Meropenem <=1 Sensitive <=1 Sensitive Nitrofurantoin Resistant Piperacillin/Tazobactam <=16 Sensitive <=16 Sensitive Tetracycline Resistant Tobramycin Resistant Sensitive Trimethoprim/Sulfa Resistant Linear View Comments bladder urine Results: Urine culture Cystostomy Urine Abnormal Status: Final result (Collected: 09/26/2018 15:22) Result Information Date and Time: Resulted: 09/28/2018 09:45 Status: Final result ??-- Abnormal Specimen Information: Cystostomy Urine ?? Component Value Urine Culture Abnormal 10,000-49,000 cfu/ml Proteus mirabilis 10,000-49,000 cfu/ml Pseudomonas aeruginosa Susceptibilities previously reported Comments right Upper pole renal urine Results: Tissue Culture, Aerobic & Anaerobic Kidney Abnormal Status: Preliminary result (Collected: 09/26/2018 17:36) Linked Results Procedure Abnormality Status Tissue culture Abnormal Preliminary result Anaerobic Culture Preliminary result Result Information Date and Time: 09/29/2018 12:56 Status: Preliminary result ??-- Abnormal Component Results Specimen Information: Kidney ?? Component Value Tissue Culture Abnormal Rare Proteus mirabilis Gram Stain Abnormal No Neutrophils seen. No microorganisms seen. Susceptibility Proteus mirabilis Pseudomonas aeruginosa MICROSCAN METHOD MICROSCAN METHOD Amikacin Sensitive Sensitive Ampicillin Resistant Ampicillin + Sulbactam Intermediate Aztreonam Sensitive Intermediate Cefazolin Intermediate Cefepime <=4 Sensitive 8 Sensitive Ceftazidime <=1 Sensitive 4 Sensitive Ceftriaxone Sensitive Cefuroxime Sensitive Ciprofloxacin Resistant Resistant Gentamicin Resistant Sensitive Levofloxacin Resistant Resistant Meropenem <=1 Sensitive <=1 Sensitive Piperacillin/Tazobactam <=16 Sensitive <=16 Sensitive Tetracycline Resistant Tobramycin Intermediate Sensitive Trimethoprim/Sulfa Resistant Linear View Comments Right ureteral stone Results: Blood culture Abnormal Status: Preliminary result (Collected: 09/27/2018 16:32) Result Information Date and Time: 09/30/2018 07:50 Status: Preliminary result ??-- Abnormal Component Results Specimen Information: Blood ?? Component Value Blood Culture Abnormal Proteus mirabilis isolated Isolate saved. If future testing is required, contact the Microbiology Desktop Analyst. Gram Stain Anaerobic Abnormal Growth detected in anaerobic bottle. Gram Negative Rods seen Results called to and read back by Kaden Palencia RN in [facility] ??09/28/18 09:36:24 Susceptibility Proteus mirabilis MICROSCAN METHOD Amikacin Sensitive Ampicillin Resistant Ampicillin + Sulbactam Intermediate Aztreonam Sensitive Cefazolin Intermediate Cefepime <=4 Sensitive Ceftazidime <=1 Sensitive Ceftriaxone Sensitive Cefuroxime Sensitive Ciprofloxacin Resistant Gentamicin Resistant Levofloxacin Resistant Meropenem <=1 Sensitive Piperacillin/Tazobactam <=16 Sensitive Tetracycline Resistant Tobramycin Intermediate Trimethoprim/Sulfa Resistant Results: Blood culture Status: Preliminary result (Collected: 09/27/2018 16:32) Result Information Date and Time: 09/29/2018 23:01 Status: Preliminary result Specimen Information: Blood ?? Component Value Blood Culture No growth at 2 days. Results: Urine culture Indwelling Catheter Urine Abnormal Status: Final result (Collected: 09/27/2018 16:33) Result Information Date and Time: Resulted: 09/29/2018 10:19 Status: Final result ??-- Abnormal Specimen Information: Indwelling Catheter Urine ?? Component Value Urine Culture Abnormal 1,000-9,000 cfu/ml Gram Negative Rods 3/10 Blood cultures x 2 - no growth x 1 day Imagin/8 CT Abdomen & Pelvis Wo Contrast IMPRESSION 1. Postoperative changes of the right kidney without retained stone. 2. Unchanged 1.9 cm nonobstructing calculus in the left consistent. 3. Left abdominal wall hernia containing small bowel without incarceration. 09/28 CXR - Negative for acute process A/P: Blossom Samayoa is a 57 y.o. female now 5 Days Post-Op s/p Right PCNL. Continues on Cefepime for coverage of Pseudomonas and Proteus. Positive blood culture from 09/27/2018 showing Proteus. UCx growing proteus and pseudomonas. Appreciate ID recs. Clinically improving from Sepsis secondary to likely urinary source. Follow up surveillance cultures, so far no growth at 48 hours. Pt with morbid obesity which has not affected length of stay or clinical course. Left PCNL scheduled for 11/07/2018 to address nonobstructing left renal stone. Consent form signed today. Will be able to discharge home today after PICC placement and OPAT is set up. Neuro: PO Tylenol and oxycodone prn. Home gabapentin. CV: +HTN. Home meds-Continue Coreg, statin and spironolactone. Resumed home lisinopril. Pulm:Satting well on RA. Continue home meds- spiriva, albuterol neb; FEN: Carb control diet- Hold metformin, continue glipizide and SSI Renal:HLIV, f/u BMP, replace lytes PRN GI: Colace. Zofran prn ID: Cefepime, ID consult for OPAT, 2 week course of IV abx for bacteremia (through 10/13/2018) Ppx: OOB, cont. PT/OT, floor status Dispo: DNR; OPAT for home IV abx. Alicia Yoon RCP - 10/01/2018 12:14 AM EDT Respiratory Care Pt declined CPAP this evening. Pt states she will be having to get up to the commode too much and wouldn't be able to keep it on. Viky Zaidi RN - 09/30/2018 6:16 PM EDT OUTCOME EVALUATION NOTE: OUTCOME SUMMARY: Pt reported pain @ right back at incision site. Zheng removed, voiding adequately with low PVR. PIV infiltrate, new line placed, leaking currently, TBD if vascular access will need vascular access to assess. PLAN MOVING FORWARD: Continue monitoring PIV, intervene as needed. Continue managing pain. Encourage ambulation and IS. INDIVIDUALIZED FALL PREVENTION INTERVENTIONS: Patient-specific fall risk factors per assessment: [current deficits]: Generalized weakness, IV site Assistance [level of assistance required for transfers and ambulation]: Independent/standby w/cane Supervision [direct monitoring required during toileting and ADLs]: Independent, eyes on Surveillance [continuous indirect monitoring]: Amadeo, safety rounding Patient-specific fall prevention interventions for sensory deficits provided, if applicable: N/A CPG GOAL OUTCOME EVALUATION: Patient Vitals for the past 24 hrs: BP Temp Temp src Resp SpO2 09/30/18 1609 119/49 36.8 ??C (98.2 ??F) Oral 18 98 % 09/30/18 1213 130/60 36.5 ??C (97.7 ??F) Oral 18 98 % 09/30/18 0818 138/62 36.9 ??C (98.4 ??F) Oral 18 95 % 09/30/18 0430 169/88 36.9 ??C (98.4 ??F) Oral 18 97 % 09/29/18 2313 119/51 36.8 ??C (98.2 ??F) Oral 18 95 % 09/29/18 2033 151/65 (!) 38.1 ??C (100.6 ??F) Oral 18 97 % Awilda Ulloa MD - 09/30/2018 5:07 PM EDT INFECTIOUS DISEASE FOLLOW-UP NOTE Active ID Issue(s): Gram negative bacteremia in the setting of Pseudomonas and proteus UTI Antimicrobial Therapy: Cefepime 2 grams q 8 hours Intercurrent Events/Subjective Data: -Tmax 100.6 -Gram negative himanshu from blood ended up being Proteus -Patients blood cultures from 09/29 continue to be negative so far Physical Exam: Last value Range last 24 hrs Temperature Temp: 36.8 ??C (98.2 ??F) Temp: [36.5 ??C (97.7 ??F)-38.1 ??C (100.6 ??F)] General: Pleasant, alert, appropriate; NAD, non-toxic appearing HEENT: EOMI, no pallor, anicteric sclera. Cardiac: Normal rate, regular rhythm, late 2/6 systolic murmur appreciated over the USB bilaterally Respiratory: Nonlabored. CTA-B without wheezes/rhonchi/rales. Abd: NABS; soft, non-tender Ext: WWP, no C/C/E Skin: Intact without rash; no lesions, no petechiae Neuro: CN II-XII grossly intact; grossly non-focal. Laboratory: Lab Results Component Value Date WBC 10.3 (H) 09/30/2018 HGB 10.1 (L) 09/30/2018 HCT 32.7 (L) 09/30/2018 PLATELET 186 09/30/2018 Lab Results Component Value Date CREATININE 0.83 09/30/2018 Lab Results Component Value Date ALT 20 07/22/2018 AST 31 (H) 07/22/2018 ALKPHOS 77 07/22/2018 BILITOT 0.8 07/22/2018 No results found for: SEDRATE No results found for: CRP Microbiology: BLOOD Cx: 09/27/2018: Gram-negative himanshu on Gram stain with growth in anaerobic bottle, identification and susceptibility TBD 09/29: no growth x 24 hours ?? URINE Cx: 07/09/2018 urine culture from [facility]: >100K Proteus mirabilis R: Unasyn, ciprofloxacin, nitrofurantoin, TMP SMX I: Gentamicin, tobramycin Sn: Cefazolin, ceftaz, ceftriaxone, piperacillin tazobactam ?? 07/22/2018 urine culture from [facility]: 10-50K pseudomonas aeruginosa (plus mixed mucosal rasta) Sn to all tested (ceftaz, ciprofloxacin, gentamicin, imipenem, tobramycin, piperacillin tazobactam) ?? 07/30/2018 urine culture from [facility]: >100K pseudomonas aeruginosa, same susceptibilities 10-50K Citrobacter freundii (R: cefazolin, ceftaz; I: Ceftriaxone; Sn: all else tested) ?? 08/15/2018 urine culture from [facility]: Proteus mirabilis, same as above ? 09/26/2018 cystostomy urine: 10-49K Proteus mirabilis 10-49K pseudomonas aeruginosa ?? Proteus mirabilis Pseudomonas aeruginosa ? MICROSCAN METHOD MICROSCAN METHOD ? Amikacin Sensitive Sensitive ? Ampicillin Resistant ? Ampicillin + Sulbactam Intermediate ? Aztreonam Sensitive Sensitive ? Cefazolin Intermediate ? Cefepime Sensitive Sensitive ? Ceftazidime Sensitive Sensitive ? Ceftriaxone Sensitive ? Cefuroxime Sensitive ? Ciprofloxacin Resistant Resistant ? Gentamicin Resistant Sensitive ? Levofloxacin Resistant Intermediate ? Meropenem Sensitive Sensitive ? Nitrofurantoin Resistant ? Piperacillin/Tazobactam Sensitive Sensitive ? Tetracycline Resistant ? Tobramycin Resistant Sensitive ? Trimethoprim/Sulfa Resistant ? 09/26/2018 kidney specimen, tissue culture: No microorganisms or neutrophils seen on Gram stain -Rare Proteus mirabilis growing on bacterial culture Proteus mirabilis ? MICROSCAN METHOD ? Amikacin Sensitive ? Ampicillin Resistant ? Ampicillin + Sulbactam Intermediate ? Aztreonam Sensitive ? Cefazolin Intermediate ? Cefepime Sensitive ? Ceftazidime Sensitive ? Ceftriaxone Sensitive ? Cefuroxime Sensitive ? Ciprofloxacin Resistant ? Gentamicin Resistant ? Levofloxacin Resistant ? Meropenem Sensitive ? Piperacillin/Tazobactam Sensitive ? Tetracycline Resistant ? Tobramycin Intermediate ? Trimethoprim/Sulfa Resistant ? 09/27/2018, indwelling Zheng catheter urine: 1-9K gram-negative rods ? Imaging/Diagnostics: 09/27/2018 CT abdomen + pelvis, WO: 1. ??Postoperative changes of the right kidney without retained stone. 2. ??Unchanged 1.9 cm nonobstructing calculus in the left consistent. 3. ??Left abdominal wall hernia containing small bowel without incarceration. ?? Impression: Blossom Samayoa is a 57 y.o. female with a history of calcium oxalate nephrolithiasis and recurrent UTIs with sepsis and hydronephrosis this past June 2018, with urine cultures at the time positive for cephalosporin susceptible Proteus mirabilis, as well as a sensitive pseudomonas aeruginosa. Th is was managed with cystoscopically placed ureteral stent, and IV ceftriaxone transitioning to 14 days Cefpodoxime with urology follow-up. She is now admitted following her planned PCNL, which occurred09/26/2018 after 48 hours of doxycycline. Operative findings pertinent for an encrusted right ureteral stent that was not able to be removed in a retrograde fashion; and dilatation required to remove upper pole stones. At this time she has a newly replaced right ureteral stent, and [address] Cystoscopy urine has grown Proteus mirabilis and a quinolone-resistant Pseudomonas. Postoperative course has been complicated by high fevers and confusion, with Proteus bacteremia being managed with cefepime. Blood cultures from 09/29 seem to have cleared and patient is doing much better clinically. While it is often appropriate to step down from IV to oral antibiotics in the setting of a gram-negative bacteremia with urinary source, unfortunately the rasta quinolone resistant Pseudomonas limits what oral options will be available therefore we will treat her with two weeks of cefepime barring herblood cultures continue to be negative tomorrow. ?? Recommendations: -Continue cefepime 2 g every 8 hours IV -We will follow her blood cultures and if they continue to be negative tomorrow then she can get a PICC -OPAT: -Dx. Gram negative bacteremia in the setting of Proteus and Pseudomonas UTI/infected kidney stones -Tx: Cefepime 2grams q8 hours x 14 days (09/29-10/13) -Labs: weekly CBC, CMP, CRP Patient discussed with ID attending Dr. Rogers. Recommendations discussed with primary treating team. ID consult service will sign off and set up OPAT as long as her blood cultures continue to be negative tomorrow. Of course if clinical changes occur or new questions arise do not hesitate to contact uson pager [phone]. Awilda Ulloa MD Infectious Disease Fellow Pager [phone] Associated attestation - Rah Rogers MD - 10/01/2018 9:18 AM EDT Attending Addendum: I have seen and examined the patient, reviewed the data and agree with the note by Dr. Ulloa. She has her typical joint pains and some abd pain. Clinically improved overall. No oral options for therapy. Discussed OPAT with her, she is willing to try as long as insurance covers. Avani Huynh PA - 09/30/2018 7:39 AM EDT Images from the original note were not included. Urology Inpatient Progress Note ID: Blossom Samayoa is a 57 y.o. female w/ 1.6 cm right UPJ stone, as well as a 4-5 mm distal right ureteral stone s/p stent placement in June who is now POD 4 s/p right PCNL S/ 24h events - Tmax 38.1 at 8 pm, on Cefepime - Patient oriented, remembers being confused - Pain well controlled. - Tolerating diabetic diet, no nausea - Autodiuresed yesterday with 7.4 L urine output O: Last value Range last 24hrs Temperature Temp: 36.9 ??C (98.4 ??F) Temp: [36.8 ??C (98.2 ??F)-38.1 ??C (100.6 ??F)] Heart Rate Heart Rate: 69 Heart Rate: -- Blood Pressure BP: 169/88 BP: (119-169)/(51-88) Respiratory Rate Resp: 18 Resp: [16-18] SpO2 SpO2: 97 % SpO2: [94 %-98 %] 09/29 07 - 09/30 07 In: 2930 [P.O.:2930] Out: 7425 [Urine:7425] PE: Body mass index is 48.91 kg/m??. General: AOx3, NAD, conversant HEENT: PERRL, anicteric sclerae Cardiopulm: nonlabored breathing Abd: morbidly obese, soft, nontender, non-distended Back: R flank dressing CDI : zheng in place with clear yellow output Ext: warm, well perfused, no edema Labs: Recent Labs 09/30/1818 09/29/18 0550 09/28/18 0201 WBC 10.3* 9.5 11.7* HGB 10.1* 8.5* 9.1* HCT 32.7* 26.9* 28.3* PLATELET 186 148 147 Recent Labs 09/30/1818 09/29/18 0550 09/28/18 0201 NA 138 138 134* K 3.9 3.7 3.9 CL 101 105 103 CO2 23 23 20* BUN 13 13 19* CREATININE 0.83 0.86 1.06 GLUCOSE 176 187 248* CALCIUM 10.7* 10.5 9.6 Microbiology: Results: Urine culture Cystoscopic Urine Abnormal Status: Final result (Collected: 09/26/2018 15:22) Result Information Date and Time: Resulted: 09/28/2018 09:44 Status: Final result ??-- Abnormal Component Results Specimen Information: Cystoscopic Urine ?? Component Value Urine Culture Abnormal 1,000-9,000 cfu/ml Proteus mirabilis 1,000-9,000 cfu/ml Pseudomonas aeruginosa Susceptibility Proteus mirabilis Pseudomonas aeruginosa MICROSCAN METHOD MICROSCAN METHOD Amikacin Sensitive Sensitive Ampicillin Resistant Ampicillin + Sulbactam Intermediate Aztreonam Sensitive Sensitive Cefazolin Intermediate Cefepime <=4 Sensitive 8 Sensitive Ceftazidime <=1 Sensitive <=1 Sensitive Ceftriaxone Sensitive Cefuroxime Sensitive Ciprofloxacin Resistant Resistant Gentamicin Resistant Sensitive Levofloxacin Resistant Intermediate Meropenem <=1 Sensitive <=1 Sensitive Nitrofurantoin Resistant Piperacillin/Tazobactam <=16 Sensitive <=16 Sensitive Tetracycline Resistant Tobramycin Resistant Sensitive Trimethoprim/Sulfa Resistant Linear View Comments bladder urine Results: Urine culture Cystostomy Urine Abnormal Status: Final result (Collected: 09/26/2018 15:22) Result Information Date and Time: Resulted: 09/28/2018 09:45 Status: Final result ??-- Abnormal Specimen Information: Cystostomy Urine ?? Component Value Urine Culture Abnormal 10,000-49,000 cfu/ml Proteus mirabilis 10,000-49,000 cfu/ml Pseudomonas aeruginosa Susceptibilities previously reported Comments right Upper pole renal urine Results: Tissue Culture, Aerobic & Anaerobic Kidney Abnormal Status: Preliminary result (Collected: 09/26/2018 17:36) Linked Results Procedure Abnormality Status Tissue culture Abnormal Preliminary result Anaerobic Culture Preliminary result Result Information Date and Time: 09/29/2018 12:56 Status: Preliminary result ??-- Abnormal Component Results Specimen Information: Kidney ?? Component Value Tissue Culture Abnormal Rare Proteus mirabilis Gram Stain Abnormal No Neutrophils seen. No microorganisms seen. Susceptibility Proteus mirabilis Pseudomonas aeruginosa MICROSCAN METHOD MICROSCAN METHOD Amikacin Sensitive Sensitive Ampicillin Resistant Ampicillin + Sulbactam Intermediate Aztreonam Sensitive Intermediate Cefazolin Intermediate Cefepime <=4 Sensitive 8 Sensitive Ceftazidime <=1 Sensitive 4 Sensitive Ceftriaxone Sensitive Cefuroxime Sensitive Ciprofloxacin Resistant Resistant Gentamicin Resistant Sensitive Levofloxacin Resistant Resistant Meropenem <=1 Sensitive <=1 Sensitive Piperacillin/Tazobactam <=16 Sensitive <=16 Sensitive Tetracycline Resistant Tobramycin Intermediate Sensitive Trimethoprim/Sulfa Resistant Linear View Comments Right ureteral stone Results: Blood culture Abnormal Status: Preliminary result (Collected: 09/27/2018 16:32) Result Information Date and Time: 09/29/2018 07:46 Status: Preliminary result ??-- Abnormal Specimen Information: Blood ?? Component Value Blood Culture Abnormal Gram Negative Rods isolated Identification and susceptibility to follow. Gram Stain Anaerobic Abnormal Growth detected in anaerobic bottle. Gram Negative Rods seen Results: Blood culture Status: Preliminary result (Collected: 09/27/2018 16:32) Result Information Date and Time: 09/29/2018 23:01 Status: Preliminary result Specimen Information: Blood ?? Component Value Blood Culture No growth at 2 days. Results: Urine culture Indwelling Catheter Urine Abnormal Status: Final result (Collected: 09/27/2018 16:33) Result Information Date and Time: Resulted: 09/29/2018 10:19 Status: Final result ??-- Abnormal Specimen Information: Indwelling Catheter Urine ?? Component Value Urine Culture Abnormal 1,000-9,000 cfu/ml Gram Negative Rods 09/29 Blood cultures x 2 - pending Imagin/8 CT Abdomen & Pelvis Wo Contrast IMPRESSION 1. Postoperative changes of the right kidney without retained stone. 2. Unchanged 1.9 cm nonobstructing calculus in the left consistent. 3. Left abdominal wall hernia containing small bowel without incarceration. 09/28 CXR - Negative for acute process A/P: Blossom Samayoa is a 57 y.o. female now 4 Days Post-Op s/p Right PCNL. Continues on Cefepime started for better pseudomonas coverage. Positive blood culture (GNR). UCx growing proteus and pseudomonas. Appreciate ID recs. Will remove Zheng catheter today. Follow up surveillance cultures. Await PICC placement until negative blood cultures result. Resume home lisinopril as BPs have been elevated and renal function is stable. Pt with morbid obesity which has not affected length of stay or clinical course. Will plan to book pt for left PCNL in 4-6 weeks to address nonobstructing left renal stone. Neuro: PO Tylenol and oxycodone prn. Home gabapentin. CV: +HTN. Home meds-Continue Coreg, statin and spironolactone. Resume home lisinopril. Pulm:Satting well on RA. Continue home meds- spiriva, albuterol neb; FEN: Carb control diet- Hold metformin, continue glipizide and SSI Renal: fluid and med changes as above- f/u BMP replace lytes PRN GI: Colace. Zofran prn ID: Cefepime, ID consult for outpatient plan Ppx: OOB, cont. PT/OT, floor status Dispo: DNR; may need OPAT for home IV abx. JETT DERAS Alicia Yoon RCP - 09/30/2018 5:48 AM EDT Respiratory Therapy NIV Note NIV Settings: Auto titration CPAP Assessment: Pt did not wear CPAP overnight. She remained on room air. Last value Range last 12 hrs Temperature Temp: 36.9 ??C (98.4 ??F) Temp: [36.8 ??C (98.2 ??F)-36.9 ??C (98.4 ??F)] Heart Rate Heart Rate: 69 Heart Rate: -- Blood Pressure BP: 169/88 BP: (119-169)/(51-88) Respiratory Rate Resp: 18 Resp: [18] SpO2 SpO2: 97 % SpO2: [95 %-97 %] Plan: Continue to offer nightly NIV ALICIA YOON RCP Leon Razo MD - 09/29/2018 9:50 AM EDT Urology Inpatient Progress Note ID: Blossom Samayoa is a 57 y.o. female w/ 1.6 cm right UPJ stone, as well as a 4-5 mm distal right ureteral stone s/p stent placement in June who is now POD 2 s/p right PCNL S/ 24h events - Febrile to 39.1 at 11am yesterday; started on Cefepime - Patient intermittently confused (AOx2), but at other times appropriate. Slurring words and theatrical thoughts yesterday. - Pain well controlled. Tolerating diabetic diet. - WBC down-trending - UOP adequate, Cr 0.86 (1.06) O: Last value Range last 24hrs Temperature Temp: 36.9 ??C (98.4 ??F) Temp: [36.2 ??C (97.2 ??F)-39.3 ??C (102.7 ??F)] Heart Rate Heart Rate: 69 Heart Rate: [69-94] Blood Pressure BP: 125/66 BP: (98-129)/(46-66) Respiratory Rate Resp: 16 Resp: [13-22] SpO2 SpO2: 95 % SpO2: [91 %-98 %] 09/28 0701 - 09/29 0700 In: 6127 [P.O.:3985; I.V.:2041] Out: 6225 [Urine:6225] PE: General: AOx3, NAD, conversant HEENT: PERRL, anicteric sclerae Cardiopulm: RRR, no mumurs, CTAB no w/r/r Abd: soft, nontender, non-distended Back: R flank CDI Skin: warm, dry Ext: no c/c/e, cap refill <2sec Neuro: CN II-XII intact. Non-focal, moving all four extremities spontaneously : zheng in place with red/brown clear output Labs: Recent Labs 09/29/18 0550 09/28/18 0201 09/27/1814809/26/181914 WBC 9.5 11.7* 20.0* 7.3 HGB 8.5* 9.1* 10.1* 13.3 HCT 26.9* 28.3* 32.0* 41.9 PLATELET 148 147 200 247 Recent Labs 09/29/18 0550 09/28/18 0201 09/27/1814809/26/181914 NA 138 134* 134* 137 K 3.7 3.9 4.0 4.6 CL 105 103 100 102 CO2 23 20* 20* 18* BUN 13 19* 15 11 CREATININE 0.86 1.06 1.58* 0.88 GLUCOSE 187 248* 206* 166 CALCIUM 10.5 9.6 9.7 10.5 PTH -- -- 49 -- Microbiology: UCx: Proteus & Pseudomonas BCx: +GNRs Tissue Culture, Aerobic & Anaerobic Kidney [[id number]] Collected: 09/26/181735 Lab Status: In process Specimen: Kidney Updated: 09/27/18925 Tissue culture [[id number]] (Abnormal) Collected: 09/26/181735 Lab Status: Preliminary result Specimen: Kidney Updated: 09/27/18925 Tissue Culture Rare Gram Negative RodsAbnormal Gram Stain --Abnormal No Neutrophils seen. No microorganisms seen. Abnormal Urine culture Cystoscopic Urine [[id number]] (Abnormal) Collected: 09/26/181521 Lab Status: Preliminary result Specimen: Cystoscopic Urine Updated: 09/27/18 112 Urine Culture --Abnormal 1,000-9,000 cfu/ml Gram Negative Rods 1,000-9,000 cfu/ml Gram Negative Rods #2 Abnormal Urine culture Cystostomy Urine [[id number]] (Abnormal) Collected: 09/26/181521 Lab Status: Preliminary result Specimen: Cystostomy Urine Updated: 09/27/18 112 Urine Culture --Abnormal 10,000-49,000 cfu/ml Gram Negative Rods 10,000-49,000 cfu/ml Gram Negative Rods #2 Imaging: Ct Abdomen & Pelvis Wo Contrast IMPRESSION 1. Postoperative changes of the right kidney without retained stone. 2. Unchanged 1.9 cm nonobstructing calculus in the left consistent. 3. Left abdominal wall hernia containing small bowel without incarceration. CXR - Negative for acute process A/P: Blossom Samayoa is a 57 y.o. female now 3 Days Post-Op s/p Right PCNL. Febrile to 39.1 yesterday. Ceftriaxone discontinued and Cefepime started for better pseudomonas coverage. Positive blood culture (GNR). UCx growing proteus and pseudomonas. Will ask infectious disease to see patient today for additional antibiotic recommendations, specifically outpatient regimen. Repeat blood cultures today to ensure clearing of infection. Decreasing O2 requirement and AOx3 this morning. Feels much better. UOP and Cr continue to improve. Will maintain Zheng catheter until tomorrow. Likely d/c home tomorrow versus Sunday if patient remains afebrile and tolerates oral medications. Neuro: tylenol, B&O, gabapentin, oxycodone, lidoderm patches CV: Home meds-Continue Coreg, statin and spironolactone . Holding lisinopril given normotension. Pulm:home meds- spiriva, albuterol neb; FEN: Carb control diet- Hold metformin, continue glipizide and SSI Renal: fluid and med changes as above- f/u BMP replace lytes PRN GI: bowel reg ID: Cefepime, ID consult for outpatient plan Lines: PIVx1 Ppx: OOB, cont. PT/OT, floor status Dispo: DNR; inpatient status Leon Razo MD Associated attestation - Iggy Alcaraz MD - 09/30/2018 7:18 AM EDT I have seen the patient and reviewed the resident's above history and I agree with the details as written. The assessment and plan were formulated in discussion with me and I agree with them as documented. Thu Navarrete RN - 09/29/2018 5:33 AM EDT Received pt in bed from 3E. Pt AxO 4 NC 2l. On CPAP @ night. Refused CPAP last night. OOB with 1 assist with cane. High fall risk.On IV ABX. C/O pain. Pain relieved with scheduled tylenol. High Blood sugar, insulin coverage given.Continue monitor pt. Óscar Archibald, HARNESS RIGGER - 09/28/2018 11:03 PM EST Pt refused NIV use this evening. Leon Mcelroy MD - 09/28/2018 8:30 AM EST Urology Inpatient Progress Note ID: Blossom Samayoa is a 57 y.o. female w/ 1.6 cm right UPJ stone, as well as a 4-5 mm distal right ureteral stone s/p stent placement in June who is now POD 2 s/p right PCNL S/ 24h events - Bilateral PCNs removed without complication - Febrile to 38.7 yesterday prompting infectious work up; last fever 7pm with temp 38.2 - Patient intermittently confused (AOx2), but at other times appropriate. This morning she thought she was in [facility]. - Pain well controlled. Tolerating diabetic diet. - UOP adequate, Cr 1.06 (1.58) O: Last value Range last 24hrs Temperature Temp: 36.8 ??C (98.3 ??F) Temp: [36.8 ??C (98.3 ??F)-38.7 ??C (101.6 ??F)] Heart Rate Heart Rate: 98 Heart Rate: [80-98] Blood Pressure BP: 168/71 BP: (60-168)/(37-77) Respiratory Rate Resp: 20 Resp: [15-20] SpO2 SpO2: 98 % SpO2: [95 %-99 %] 09/27 0701 - 09/28 0700 In: 4850 [P.O.:3390; I.V.:1460] Out: 4825 [Urine:4825] PE: General: AOx3, NAD, conversant HEENT: PERRL, anicteric sclerae Cardiopulm: RRR, no mumurs, CTAB no w/r/r Abd: soft, nontender, non-distended Back: R flank dressing CDI- minimal output from PCN tubes Skin: warm, dry Ext: no c/c/e, cap refill <2sec Neuro: CN II-XII intact. Non-focal, moving all four extremities spontaneously : zheng in place with red/brown clear output Labs: Recent Labs 09/28/18 02009/27/1814809/26/181914 WBC 11.7* 20.0* 7.3 HGB 9.1* 10.1* 13.3 HCT 28.3* 32.0* 41.9 PLATELET 147 200 247 Recent Labs 09/28/1820009/27/1814809/26/181914 NA 134* 134* 137 K 3.9 4.0 4.6 CL 103 100 102 CO2 20* 20* 18* BUN 19* 15 11 CREATININE 1.06 1.58* 0.88 GLUCOSE 248* 206* 166 CALCIUM 9.6 9.7 10.5 PTH -- 49 -- Microbiology: Tissue Culture, Aerobic & Anaerobic Kidney [[id number]] Collected: 09/26/181735 Lab Status: In process Specimen: Kidney Updated: 09/27/18925 Tissue culture [[id number]] (Abnormal) Collected: 09/26/181735 Lab Status: Preliminary result Specimen: Kidney Updated: 09/27/18925 Tissue Culture Rare Gram Negative RodsAbnormal Gram Stain --Abnormal No Neutrophils seen. No microorganisms seen. Abnormal Urine culture Cystoscopic Urine [[id number]] (Abnormal) Collected: 09/26/18 152 Lab Status: Preliminary result Specimen: Cystoscopic Urine Updated: 09/27/181119 Urine Culture --Abnormal 1,000-9,000 cfu/ml Gram Negative Rods 1,000-9,000 cfu/ml Gram Negative Rods #2 Abnormal Urine culture Cystostomy Urine [[id number]] (Abnormal) Collected: 09/26/18 152 Lab Status: Preliminary result Specimen: Cystostomy Urine Updated: 09/27/18 1124 Urine Culture --Abnormal 10,000-49,000 cfu/ml Gram Negative Rods 10,000-49,000 cfu/ml Gram Negative Rods #2 Imaging: Ct Abdomen & Pelvis Wo Contrast IMPRESSION 1. Postoperative changes of the right kidney without retained stone. 2. Unchanged 1.9 cm nonobstructing calculus in the left consistent. 3. Left abdominal wall hernia containing small bowel without incarceration. A/P: Blossom Samayoa is a 57 y.o. female now 2 Days Post-Op s/p Right PCNL. Febrile yesterday afternoon prompting febrile workup. Started on Ceftriaxone. Will follow up BCx andUCx. Persistent O2 requirement. Given that patient has been febrile, has a persistent O2 requirement, and is s/p PCNL, will obtain CXR today to confirm no intra-thoracic process. UOP and Cr have improved. Will maintain Zheng until afebrile for > 24 hours. Possible d/c home tomorrow vs. Sunday. Neuro: tylenol, B&O, gabapentin, oxycodone, lidoderm patches CV: Home meds- hold lisinopril, continue Coreg, statin and spironolactone . Monitor Blood pressure Pulm:home meds- spiriva, albuterol neb; resp consult for O2 requirement FEN: MIVF @ 100/hr - Carb control diet- Hold metformin, continue glipizide and SSI Renal: fluid and med changes as above- f/u BMP replace lytes PRN GI: bowel reg ID: STEPHEN - jason op abx completed Lines: PIVx1 Ppx: OOB, cont. PT/OT, floor status Dispo: DNR - will monitor overnight with possible d/c to home tomorrow Leon Razo MD Addendum: Blood Cx positive for GNRs. Will follow up sensitivities. Continue Ceftriaxone for now. Associated attestation - Iggy Alcaraz MD - 09/29/2018 9:45 AM EDT I have seen the patient and reviewed the resident's above history and I agree with the details as written. The assessment and plan were formulated in discussion with me and I agree with them as documented. Marlen Moyer RCP - 09/28/2018 2:08 AM EST Respiratory Therapy NIV Note NIV Settings: NIV Mode: Auto Titrating Pressure Support (cm H2O): 5 O2 Bleed In (LPM): 1 L/min NIV Measurements: Resp: 18 SpO2: 99 % Skin Assessment: NIV Skin Assessment WDL: WDL Mepilex Applied: No Assessment: Pt placed on NIV at 2250 for the night. Pt unable to tolerated NIV and only wore NIV X 20 min Plan: Encourage NIV use at night and continue to follow. MARLEN MOYER RCP Nahomy Du RCP - 09/27/2018 2:14 PM EST 09/27/18 1200 Oxygen Therapy O2 Device RA (resmed) SpO2 95 % Resp 16 pt on room air, pt has resmed for at nite Marquis Zimmerman MD - 09/27/2018 12:25 PM EST Urology Inpatient Progress Note ID: Blossom Samayoa is a 57 y.o. female w/ 1.6 cm right UPJ stone, as well as a 4-5 mm distal right ureteral stone s/p stent placement in June who is now POD 1 s/p right PCNL S/ 24h events -Low UOP overnight and Cr 1.58 from 0.88, low blood pressure recordings- confounded by poor BP cuff fit -CT completed this morning- reassuring- no residual stone -No complaints this AM, denies f/c/n/v/sob/cp. Pain well controlled. Tolerated CLD and has strong appetite. O: Last value Range last 24hrs Temperature Temp: 37.3 ??C (99.2 ??F) Temp: [36.3 ??C (97.3 ??F)-37.7 ??C (99.9 ??F)] Heart Rate Heart Rate: 80 Heart Rate: [80-124] Blood Pressure BP: 103/50 BP: (65-107)/(36-84) Respiratory Rate Resp: 18 Resp: [9-22] SpO2 SpO2: 95 % SpO2: [94 %-100 %] 09/26 700 - 09/27 699 In: 5032.3 [P.O.:720; I.V.:4151] Out: 365 [Urine:140] PCN #1= 10cc PCN #2= 15cc PE: General: AOx3, NAD, conversant HEENT: PERRL, anicteric sclerae Cardiopulm: RRR, no mumurs, CTAB no w/r/r Abd: soft, nontender, non-distended Back: R flank dressing CDI- minimal output from PCN tubes Skin: warm, dry Ext: no c/c/e, cap refill <2sec Neuro: CN II-XII intact. Non-focal, moving all four extremities spontaneously : zheng in place with red/brown clear output Labs: Recent Labs 09/27/1814809/26/181914 WBC 20.0* 7.3 HGB 10.1* 13.3 HCT 32.0* 41.9 PLATELET 200 247 Recent Labs 09/27/1814809/26/181914 NA 134* 137 K 4.0 4.6 CL 100 102 CO2 20* 18* BUN 15 11 CREATININE 1.58* 0.88 GLUCOSE 206* 166 CALCIUM 9.7 10.5 PTH 49 -- Microbiology: Tissue Culture, Aerobic & Anaerobic Kidney [[id number]] Collected: 09/26/181735 Lab Status: In process Specimen: Kidney Updated: 09/27/18925 Tissue culture [[id number]] (Abnormal) Collected: 09/26/181735 Lab Status: Preliminary result Specimen: Kidney Updated: 09/27/18925 Tissue Culture Rare Gram Negative RodsAbnormal Gram Stain --Abnormal No Neutrophils seen. No microorganisms seen. Abnormal Urine culture Cystoscopic Urine [[id number]] (Abnormal) Collected: 09/26/18 1522 Lab Status: Preliminary result Specimen: Cystoscopic Urine Updated: 09/27/18 1120 Urine Culture --Abnormal 1,000-9,000 cfu/ml Gram Negative Rods 1,000-9,000 cfu/ml Gram Negative Rods #2 Abnormal Urine culture Cystostomy Urine [[id number]] (Abnormal) Collected: 09/26/18 1522 Lab Status: Preliminary result Specimen: Cystostomy Urine Updated: 09/27/18 1124 Urine Culture --Abnormal 10,000-49,000 cfu/ml Gram Negative Rods 10,000-49,000 cfu/ml Gram Negative Rods #2 Imaging: Ct Abdomen & Pelvis Wo Contrast IMPRESSION 1. Postoperative changes of the right kidney without retained stone. 2. Unchanged 1.9 cm nonobstructing calculus in the left consistent. 3. Left abdominal wall hernia containing small bowel without incarceration. A/P: Blossom Samayoa is a 57 y.o. female now 1 Day Post-Op s/p Right PCNL. Low urine output, hypotension (improved) and BERNARD this morning. BERNARD likely related to preop Gentamicin/vanc and periop hypoperfusion. Plan to bolus IVF, encourage PO intake, continue MIVF, hold lisinopril and metformin, flushfoley, f/u BMP. Will remove PCN tubes today. Plan to observe today with strict I/O and f/u labs in the morning. ?? Neuro: tylenol, B&O, gabapentin, oxycodone, lidoderm patches = CV: Home meds- hold lisinopril, continue Coreg, statin and spironolactone . Monitor Blood pressure Pulm:home meds- spiriva, albuterol neb FEN: MIVF @ 100/hr + bolus 1L NS - Carb control diet- Hold metformin, continue glipizide and SSI Renal: fluid and med changes as above- f/u BMP replace lytes PRN GI: bowel reg ID: STEPHEN - jason op abx completed Lines: Ppx: OOB, cont. PT/OT, floor status, Full Code - will monitor overnight with possible d/c to home tomorrow Marquis Christopher MD Marco Bhandari, RT - 09/27/2018 3:23 AM EST Respiratory Therapy NIV Note NIV Settings: NIV Mode: Auto Titrating Pressure Support (cm H2O): 5 O2 Bleed In (LPM): 2 L/min NIV Measurements: Resp: 18 SpO2: 94 % Skin Assessment: NIV Skin Assessment WDL: WDL Mepilex Applied: No Assessment: Placed on NIV - Auto titration for MOSES in PACU. Pt recently diagnosed with MOSES but has not used NIV before. Plan: NIV at rest RT LIZ Chau Flemign MD - 09/27/2018 12:16 AM EST Surgery - Post-Operative Check Subjective: Blossom Samayoa is a 57 y.o. female s/p Procedure(s): NEPHROLITHOTOMY, (PCNL) PERCUTANEOUS, OVER 2CM (WRVU 23.5) CYSTOURETEROSCOPY, DIAGNOSTIC (WRVU 5.75) CYSTO, REMOVAL OF STENT, FOREIGN BODY, CALCULUS, COMPLICATED (WRVU 5.2) NEPHROSTOMY CATHETER, PERC, INC DX NEPHROSTOGRAM/URETEROGRAM, IMG GUIDANCE (WRVU 4.25) CYSTO, RETROGRADE, URETEROPYELOGRAPHY, W/PCNL (WRVU 2.37) ULTRASONIC GUIDANCE, INTRAOP (WRVU 1.2) FLUOROSCOPY (WRVU 0.17) - Patient denies MARQUEZ, SOB, CP, palpitations - Pain well controlled - complaining of some mild nausea, no emesis Objective: Vitals: Most Recent Vitals: 09/26/18 2332 BP: 99/43 Pulse: 90 Resp: 18 Temp: 37.7 ??C (99.9 ??F) SpO2: 94% Intake/Output: Intake/Output Summary (Last 24 hours) at 09/27/2018 0016 Last data filed at 09/26/20181999 Gross per 24 hour Intake 1611.25 ml Output 265 ml Net 1346.25 ml Physical Exam General: No acute distress, alert, responsive to questions Neuro: AAOx3, neuro exam grossly intact Cardiovascular: Regular rate & rhythm Respiratory: Breathing non-labored, 2L NC Abdomen: obese, Soft, non-tender Extremities: Intact sensation, gross motor strength, no edema Genitourinary: Zheng catheter with red tinged urine. Two nephrostomy tubes in place from right flank- mild amount of sanguinous fluid in the tubes Assessment/Plan Blossom Samayoa is a 57 y.o. female s/p the above procedures Stable and doing well. Nursing concern of hypotension when BP cuff read 60s. Retrieved a larger cuff and got the pressure from brachial artery as opposed to forearm which read as SBO in the 100s. Gave patient 1000 cc LR over3 hours. Patiet VSS and HDS during this whole time. Continue postoperative care per primary team Chau Fleming MD documented in this encounter H&P Notes Linda Rodriguez MD - 09/26/2018 1:05 PM EST Urology Pre-operative H&P Update ID: Blossom Samayoa is a 57 y.o. female with a 1.6 cm right UPJ stone, as well as a 4-5 mm distalright ureteral stone s/p stent placement in June who presents today for right PCNL with Dr. Galvin. Subjective: Denies any change in health since last clinic visit on 08/28/2018. She underwent a cardiac catheterization last month, that did not show any abnormalities. Denies chest pain, shortness of breath, abdominal pain, nausea, vomiting. She has been taking prophylactic Doxycycline BID for the last 48 hours. She is not on any blood thinners. Objective: General: pleasant, conversant, alert and oriented CV: RRR, no murmurs, rubs or gallops appreciated Pulm: CTAB Urine culture 08/28/2018 No growth A/P: Blossom Samayoa is a 57 y.o. female who presents for right PCNL with Dr. Galvin. This procedure has been fully reviewed with the patient and written informed consent has been obtained. We will proceed with planned operation. Pre-op abx: Gentamicin + Vancomycin Type and screen expires 09/29/2018 documented in this encounter Procedure Notes Chicho Milan RN - 10/01/2018 11:05 AM EDTAssociated Order(s): PLACE PICC LINE: CONTACT VASCULAR ACCESS PICC/Midline Insertion Procedure Note Indications: Anti-infective and Access This insertion was not to replace a malfunctioning catheter. This insertion was not due to a suspected line-associated infection. Location of Procedure: X-Ray Room 11 Risks and Benefits: The risks and benefits of this procedure were reviewed and informed consent was obtained obtained. Time Out: Prior to the start of the procedure, the patient's identity, intended procedure, site/side, correct patient positioning and presence of the site adan was confirmed as applicable. The medical history and chart were reviewed to rule out potential contraindications to the planned procedure. Hand Hygiene: The thoracic surgeon did perform hand hygiene prior to line insertion. Catheter type: PICC Lot number: [id number] Procedure Technique: Skin was prepped with chlorhexidine. Skin preparation agent was completely dry at the time of first skin puncture. The following barrier precaution methods were used:large sterile drape, maske/eye shield, large sterile gown, sterile gloves and cap. 2 ml of 1% Lidocaine was used for skin wheal. Ultrasound was used for guidance. Radiographic contrast agent was not injected for vein identification. Procedure Details: Order received for catheter placement. A 4 Fr. single lumen Bard Power catheter was placed into the right basilic vein over a 0.018 inch guidewire using modified seldinger technique and fluoroscopy. Arm circumference was 39 cm at 2 cm above the insertion site. Final catheter length (with trimming): 49 cm Internal: 49 cm External: 0 cm Tip in SVC per DR BELL. The line was not placed over a guidewire. Post Procedure: Diagnosis: BACTEREMIA Blood return noted on aspiration of line after placement confirmed. 5 mls of normal saline infused free flowing to gravity via PICC after insertion. Sterile dressing applied: CHG Impregnated Tegaderm. Findings: The patient did tolerate the procedure well. No Complications. Procedure Comments: CHICHO MILAN RN 10/01/2018 documented in this encounter Miscellaneous Notes Plan of Care - Chicho Milan RN - 10/01/2018 11:48 AM EDT Problem: Health Knowledge, Opportunity to Enhance (Adult,NICU,,Obstetrics,Pediatric) Goal: Knowledgeable about Health Subject/Topic Patient will demonstrate the desired outcomes by discharge/transition of care. Peripherally Inserted Central Catheter (PICC) Teaching Sheet Peripherally inserted central catheters (xibv-nt-tbrb) (PICC) are used when you need IV (intravenous) medicines and fluids. A catheter is a small flexible plastic tube. The catheter is put in through avein under your skin. A vein is a tube inside your body that carries blood from the body to the heart. The catheter is usually put into a vein on the inside of your upper arm. Then it is threaded up this vein and ends in the blood vessel near your heart. The PICC catheter may be used for taking blood for laboratory tests. You may also get IV fluids and medicines quickly and easily. Having the catheter may keep your arm from being stuck many times with a needle. The catheter will have 1-3 small tails (tubes) coming from your arm where the catheter was put in. Why do I need a PICC line or midline catheter? PICC lines are used for extermination supervisor treatments. PICC lines may be used for up to a year. They are often put in to give you IV medicines at home. You may need a PICC catheter because caregivers cannotuse smaller veins in your body. Smaller veins may be damaged, or they may have poor blood flow. ??? Catheters are also used in case of emergency when you would need medicines or fluids very quickly. ??? The following are medicines and treatments you may get when you have a PICC line. ? Antibiotics. These are medicines to prevent infection. ? Frequent blood sample collection. ? IV medicines that would make your smaller veins sore or damaged. ? Receiving IV fluids for a long period of time. ? Pain medicine. ? Total Parenteral Nutrition: This is also called TPN. TPN is a special liquid food that goes directly into your veins. ? Blood ? Chemotherapy (Medicine for cancer) What are the benefits of having a PICC line put in? Having a PICC line may keep your arm from being stuck many times with a needle to draw blood or start an IV (intravenous catheter) . ??? Through a PICC catheter, you may have blood taken for tests. You may also get IV fluids and medicines quickly and easily. ??? Small veins can be damaged or irritated by certain drugs or nutritional solutions. A PICC line helps to decrease vein irritation from antibiotics, IV pain drugs, or IV cancer drugs. ??? A PICC line can be left in place when you go home. If you go home with a PICC line in place, home care can be set up via the nurse Wrist Closer to help you. What are possible complications of having a PICC line put in? Some possible complications are: ??? bruising, swelling, or infection in the arm with the PICC line ??? mal-positioned catheter (catheter tip in wrong place) ??? occlusion (blocked catheter) ??? mechanical phlebitis (vein irritation) and thrombosis (clot) Your doctor is the person you should talk to if you have questions about what would happen if you donot choose to have a PICC line put in. Your doctor can talk to you about other choices you may have. What should I expect when it is put in? A written consent that gives your ok to have it put in needs to be signed after you understand that you are going to have a PICC put in, and all your questions about the procedure have been answered toyour satisfaction. This is a safety feature that the hospital practices before doing procedures. An experienced nurse who has been through special training and education will be putting this catheter in. The procedure is done in a specially equipped room in Interventional Radiology on the third floor. The PICC nurse will first talk to you about any questions that you may have. The PICC nurse willexplain to you what is going to be done before starting. Once you arrive in the procedure room in Interventional Radiology, the PICC nurse will then set up for the procedure. She will unwrap the sterile kit and open the needed supplies. A gown and mask and gloves will be worn while putting it in. An ultrasound machine will be used to help guide the catheterin the right place. This machine uses a handle with sound waves to find the vein. The area on your arm where the catheter will be put in is then numbed with a medicine put under yourskin with a tiny needle. The nurse will then put in the catheter using fluoroscopy (a type of x-ray)as a guide. Once the catheter is in your vein, it will be threaded up your arm to the area before your heart. While it is being threaded, you may be asked to turn your head. When the catheter is in, the nurse will place a small dressing on the site along with a little beck which will help keep the catheter in place. After the procedure is done, a radiologist (doctor in x-ray department) will look at your x-ray to make sure that the end of the catheter is in proper position to give your fluids and/or medications. What should I expect in the care of my PICC? A dressing that is specially made to prevent infections will be put on. After this, the dressing will only be changed once a week unless it needs it sooner. If you go home with the catheter in, you may take a shower as long as you keep the site dry. You raudel this by wearing a specially fitted PICC protector that will be provided to you before discharge from the hospital. The dressing at the site must be kept clean and dry. It is important that you watch for signs of infection at the site. Your healthcare provider should be notified if these occur: ??? Redness ??? Swelling ??? Pus ??? Pain at the site Other reasons to notify your healthcare provider are: ??? Catheter becomes partially or totally removed ??? Unable to infuse medication/fluid ??? Unable to draw back blood from the catheter. This may be an early sign that a clot is forming onthe end of the catheter. If this occurs, a medicine called Cathflo may be used to dissolve this clot. Ask the PICC nurse or your doctor, any questions you may have so you feel secure in consenting to having a PICC line. References: Vascular Access Device Selection, Insertion, and Management, [employer] Access Systems 04/26. A Review of the Efficacy, Safety, Use, and Administration of Cathflo, [employer] 2006 Plan of Care - Amanda Gustafson RN - 10/01/2018 4:27 AM EDT Problem: Patient Care Overview Goal: Plan of Care Review Outcome: Ongoing (Interventions Implemented as Appropriate) 09/28/18 1757 09/30/18 0562 Plan of Care Review Progress progress toward functional goals as expected -- Coping/Psychosocial Plan Of Care Reviewed With -- patient OUTCOME EVALUATION NOTE: OUTCOME SUMMARY: Patient is voiding adequate amounts of urine, incontinent at times. Pain level 3-5/10. Vicodin givenwith good effect. She requested to use the bed side commode at night, stating it was too difficult to get to BR. She declined to use her CPAP. FSBS 203, 154, 174. Insulin coverage given per sliding scale orders. See mar. Dressing on back CDI. PLAN MOVING FORWARD: If blood cultures neg, place PICC line and discharge home with IV antibiotics and VNA INDIVIDUALIZED FALL PREVENTION INTERVENTIONS: Patient-specific fall risk factors per assessment: [current deficits]: Narcotics, pain with movement/ambulation Assistance [level of assistance required for transfers and ambulation]: 1 person stand by assist with cane, non-skid shoes/slippers Supervision [direct monitoring required during toileting and ADLs]: Eyes on, hands on Surveillance [continuous indirect monitoring]: Purposeful rounding, call leigh in reach, direct observation Patient-specific fall prevention interventions for sensory deficits provided, if applicable: Lighting adjusted for task/safety, glasses CPG GOAL OUTCOME EVALUATION: Goal: Fall Prevention-Safe Patient Handling Outcome: Ongoing (Interventions Implemented as Appropriate) 09/30/18204509/30/182099 Francois Fall Risk History of Falling -- 0 Secondary Diagnosis -- 15 Ambulatory Aids -- 15 Intravenous Therapy/Heparin/Saline Lock -- 20 Gait/Transferring -- 10 Mental Status -- 0 Score -- 60 OTHER Francois Fall Risk -- High Restraint Interventions Safety Promotion/Fall Prevention -- activity supervised;fall prevention program maintained;nonskid shoes/slippers when out of bed;safety round/check completed Positioning Body Position up in chair -- Activity Activity Type ambulated to bathroom;ROM, active encouraged;up in chair -- Activity Assistance Provided independent -- Assistive Device Utilized none -- Goal: Infection Control Outcome: Ongoing (Interventions Implemented as Appropriate) 09/30/18209909/30/182144 Safety Interventions Isolation Precautions standard precautions maintained -- Infection Prevention environmental surveillance performed;equipment surfaces disinfected;rest/sleep promoted -- Coping Strategies Supportive Measures -- active listening utilized;self-care encouraged;verbalization of feelings encouraged Goal: Interdisciplinary Rounds/Family Conf Outcome: Ongoing (Interventions Implemented as Appropriate) 10/01/18 0415 Interdisciplinary Rounds/Family Conf Participants nursing;patient Med Student Progress Note - Isaias Ortega - 09/30/2018 10:41 AM EDT Urology Inpatient Progress Note ID: Blossom Samayoa is a 57 y.o. female with a 1.6 cm right UPJ and distal right ureteral stone s/p stent placement (06/2018) who is POD 4 s/p right PCNL. 24 hr Events/Subjective: -Tmax 38.1 C at 8pm, defervesced with tylenol, feeling chills this morning, requiring warmed blanketand heated broth to drink. -On cefepime following positive urine cultures and bacteremia with GNRs, ID consulted yesterday -A&Ox4 this morning, aware she was confused over the weekend because of the infection -Pain is well controlled, felt aches all over last night in her joints, relieved with prn oxycodone x2 -Tolerating carb control diet, feels bloated, but good appetite without N/V -Flatus continues, no BM yet -Out of bed with cane from home to chair yesterday, would like to ambulate more today Objective: Last value Range last 24hrs Temperature Temp: 36.9 ??C (98.4 ??F) Temp: [36.8 ??C (98.2 ??F)-38.1 ??C (100.6 ??F)] Heart Rate Heart Rate: 69 Heart Rate: 63-89 Blood Pressure BP 169/88 BP: (119-169)/(51-88) Respiratory Rate Resp: 18 Resp: [16-18] SpO2 SpO2: 95 % on RA SpO2: [94 %-98 %] Body mass index is 48.91 kg/m??. IN/OUT: PO: 2390 IV: 0 UOP: 7425 per Zheng catheter Physical Exam General: NAD, covered in blankets up to neck and holding warmed broth in both hands, conversant CV: Regular rate and rhythm, normal S1/S2, no murmurs/rubs/gallops Resp: Non labored breathing, clear to auscultation bilaterally, no wheezes, crackles, or rhonchi Abd: normal BS, obese, soft, non-tender, non-distended Back: Right flank dressing over nephrostomy sites is clean, dry, and intact without surrounding erythema or tenderness : Zheng in place with clear yellow output Ext: warm and well perfused, no edema Labs CBC notable for WBC 10.3 (increased from 9.5 yesterday) Hgb/Hct 10.1/32.7 (increased from 8.5/26.9 yesterday) BMP stable, Cr. decreased to 0.83 from 1.06 two days ago. Calcium: 10.7 (High) Phosphorus: 2.0 (Low) Imaging 09/27 CT Abdomen & Pelvis Wo Contrast 1. ??Postoperative changes of the right kidney without retained stone. 2. ??Unchanged 1.9 cm nonobstructing calculus in the left consistent. 3. ??Left abdominal wall hernia containing small bowel without incarceration. ?? 09/28 CXR - Negative for acute process Microbiology 09/28/18 Urine Culture (nephrostomy and cystoscope samples): Positive for Proteus mirabilis, Pseudomonas aeruginosa, both resistant to ciprofloxacin and levofloxacin, see chart for other drug sensitivities. 09/29/18 Stone culture: Rare proteus mirabilis 09/27/18 Blood Culture: Positive for GNRs, ID and susceptibility to follow Assessment/Management/Plan: Blossom Samayoa is a 57 y.o. female now 4 Days Post-Op s/p right PCNL whose course has been complicated by UTI and bacteremia. She continues on cefepime for pseudomonas and proteus, and may be narrowed to ceftazidime pending blood culture species identification and DST per ID. Due to the fluoroquinolone resistant nature of these bacteria, oral regimen is unlikely and will require 2 week course of IV antibiotics, with PICC placement upon negative blood culture; blood and urine surveillance cultures will be monitored. Will also remove Zheng catheter given her impressive autodiuresis with clear urine. ID raised the question of the left non-obstructing stones as a nidus of infection, but given her current septic symptomatology, we schedule left PCNL in 4-6 weeks once the present infection clears. Her BP has been elevated with return of normal renal function and stable potassium, so we will restart her home lisinopril. Neuro: PO tylenol, oxycodone prn with good effect, continue home gabapentin CV: Restart home lisinopril given HTN, continue carvedilol, spironolactone, and atorvastatin Resp: stable on room air, continue spiriva, albuterol nebulizer GI: Docusate, ondansetron prn. : Continue monitoring UOP FEN: Continue carb control diet, glipizide, SSI; hold home metformin. Follow BMP, monitor renal function and electrolytes ID: Continue cefepime, follow up with ID regarding PICC placement and outpatient treatment Prophylaxis: SCDs, encourage ambulation on floor, PT/OT Dispo: Likely will require OPAT with home IV antibiotics upon discharge pending PICC placement Isaiaseda Ortega 09/30/18 [facility] [id number] Plan of Care - Thu Navarrete RN - 09/30/2018 3:57 AM EDT Problem: Patient Care Overview Goal: Plan of Care Review Outcome: Ongoing (Interventions Implemented as Appropriate) 09/28/18 1757 09/29/18 2214 Plan of Care Review Progress progress toward functional goals as expected -- Coping/Psychosocial Plan Of Care Reviewed With -- patient OUTCOME EVALUATION NOTE: OUTCOME SUMMARY: Sakshi had a quite night. VSS, A+Ox4.Had episode of fever with 100.6 Tylenol given. C/o Pain, releived with PRN Oxy.Ambulation using cane up to chair.Dressing applied to Rt flank CDI. UOP adequate via zheng, no BM, passing flatus.CPAP at bedside pt did not use last night. will continue to monitor PLAN MOVING FORWARD: Blood clt result pending, encourage ambulation. INDIVIDUALIZED FALL PREVENTION INTERVENTIONS: Patient-specific fall risk factors per assessment: [current deficits]: Obese, weakness. Assistance [level of assistance required for transfers and ambulation]: 1 assist with cane. Supervision [direct monitoring required during toileting and ADLs]: Hands on. Surveillance [continuous indirect monitoring]: Safety rounds check, lights adjusted,call leigh withinreach. Patient-specific fall prevention interventions for sensory deficits provided, if applicable: [X] N/A CPG GOAL OUTCOME EVALUATION: Ongoing. Goal: Infection Control Outcome: Ongoing (Interventions Implemented as Appropriate) 09/29/18 2100 09/29/18 2214 Safety Interventions Isolation Precautions standard precautions maintained -- Infection Prevention rest/sleep promoted -- Coping Strategies Supportive Measures -- active listening utilized Goal: Discharge Needs Assessment Outcome: Ongoing (Interventions Implemented as Appropriate) 09/27/18 0433 09/30/18 0342 Discharge Needs Assessment Concerns To Be Addressed -- basic needs concerns Readmission Within The Last 30 Days -- no previous admission in last 30 days Provider Choice List(s) Given -- no Equipment Needed After Discharge -- none Discharge Disposition still a patient -- Current Health Anticipated Changes Related to Illness -- none Living Environment Transportation Available -- none Goal: Interdisciplinary Rounds/Family Conf Outcome: Ongoing (Interventions Implemented as Appropriate) 09/27/18 0433 Interdisciplinary Rounds/Family Conf Participants patient;nursing Plan of Care - Viky Gill RN - 09/29/2018 10:00 PM EDT Problem: Patient Care Overview Goal: Plan of Care Review Outcome: Ongoing (Interventions Implemented as Appropriate) 09/28/18 1757 09/29/18 0900 Plan of Care Review Progress progress toward functional goals as expected -- Coping/Psychosocial Plan Of Care Reviewed With -- patient OUTCOME EVALUATION NOTE: OUTCOME SUMMARY: Care resumed @ 1200, Sakshi had an uneventful night. VSS, A+Ox4, c/o minimal pain. ID came by, Tylenol now PRN. Pt rang ~@1445, reporting feeling a fever coming on, temp reached 37.5,MD Christopher aware, temp rechecked often. UOP adequate via zheng, no BM, passing flatus. R flank dsg C/D/I. Denies SOB/CP/nausea, will continue to monitor. PLAN MOVING FORWARD: Encourage ambulation/repositioning, monitor pain, monitor I/O, monitor temp INDIVIDUALIZED FALL PREVENTION INTERVENTIONS: Patient-specific fall risk factors per assessment: [current deficits]: IV sites, generalized weakness, zheng, PRN narcotics avail Assistance [level of assistance required for transfers and ambulation]: SBA Supervision [direct monitoring required during toileting and ADLs]: Eyes on, arms reach Surveillance [continuous indirect monitoring]: Frequent rounding, call leigh within reach Patient-specific fall prevention interventions for sensory deficits provided, if applicable: [X] N/A CPG GOAL OUTCOME EVALUATION: Consult Note - Maribeth Perry MD - 09/29/2018 10:41 AM EDT Images from the original note were not included. INITIAL INFECTIOUS DISEASE CONSULTATION NOTE SECTION OF INFECTIOUS DISEASE AND INTERNATIONAL HEALTH Patient Name: Blossom Samayoa : 1960 Medical Record: [id number] Date of Service: 09/29/2018 Hospital Day #: Hospital Day: 4 Location: [facility]/[id number]-B Requesting Provider: Crow Galvin Jr., MD Reason for Consult: We are being asked to see Blossom Samayoa at the request of Crow Galvin Jr., MD for evaluation of urinary tract infection with recent ureteral stone removal, and blood stream infection. Admission Date: 09/26/2018 HPI: Blossom Samaoya is a 57 y.o. female with a history of calcium oxalate nephrolithiasis and recurrent UTIs with sepsis and hydronephrosis this past June 2018. Multiple urine cultures outlined below, briefly summarized as recurrent fluoroquinolone resistant, aminoglycoside intermediate Proteus jacque bilis, recurrent sensitive Pseudomonas, and a single Citrobacter. A right sided impacted stone measuring 16.4 mm at the ureteropelvic junction was found, as well as a 4-5 mm distal right ureteral stoneand she was managed at the time with cystoscopically placed right ureteral stent on 07/20/2018, in addition to ceftriaxone. On discharge the following day she went home with a 14-day course of Cefpodoxime, and urology follow-up. Incidentally, she was also admitted 07/22/2018-07/24/2018 for incarcerated incisional hernia with bowel obstruction, which was managed conservatively. She is now admitted following planned PCNL which happened on 09/26/2018, prior to which she hours of prophylactic doxycycline. In the OR the following findings were noted: 1.??Encrusted right ureteral stent, unable to remove in retrograde fashion 2. Access via midpole calyx via ultrasound guidance, dilated to 30 Fr, able to fragment and remove UPJ stone and encrusted stent with the LithoClast with this access, but unable to remove upper pole stones 3. Second access gained via fluoroscopic guidance in upper pole, dilated to 30 Fr, LithoClast used to remove upper pole stones here 4. Antegrade ureteroscopy revealed a distal ureteral stone, removed with Christoph Basket 5. 7 F V right ureteral stent placed 6. Two 24 Fr Emani catheters placed as nephrostomy tubes (more medial tube is the upper pole, lateral tube is the mid-pole access) 7. 5 Fr pollack catheters placed as ureteral re-entry catheters 8. 18 Fr zheng catheter placed, 10 cc sterile water instilled into balloon Since her procedure on Sunday she has been intermittently febrile, 39.1, with confusion and slurred words. Cystoscopically obtained urine has grown Proteus mirabilis and Pseudomonas; and blood culturesare growing a gram negative himanshu not yet identified. She has been managed with cefepime since yesterday. ROS: Positives and pertinents reviewed in HPI Constitutional: Denies fever, weight change, night sweats, dizziness; chronic pain at baseline HEENT: Denies congestion, rhinorrhea, visual changes, or headache. Respiratory: Denies shortness of breath or cough. Cardiovascular: Denies chest pain, pressure, palpitations, orthopnea, PND, or LE swelling. Gastrointestinal: Denies dysphagia, odynophagia, nausea, vomiting, diarrhea or constipation Genitourinary: See HPI Musculoskeletal: Chronic Skin: Denies rash, easy bruising, or pruritis. Neurological: Denies numbness, tingling, loss of sensation Heme/Lymph: Denies bleeding, lymph node swelling Past Medical History: Past Medical History: Diagnosis Date ??? [...] failure 'don't know if it's failure ??? jail current use of opiate analgesic PCP ??? [...] [facility] OR ? ? PRO CYSTO [...] [facility] OR ??? PRO PERCUT REMV KID STONE, 2+ CM Right 09/26/2018 NEPHROLITHOTOMY, (PCNL) PERCUTANEOUS, OVER 2CM (WRVU 23.5) performed by Crow Galvin Jr., MD at [facility] OR ? ? PRO [facility] NEPHROSTOMY CATH PRQ NEW ACCESS RS&I Right 09/26/2018 NEPHROSTOMY CATHETER, PERC, INC DX NEPHROSTOGRAM/URETEROGRAM, IMG GUIDANCE (WRVU 4.25) performed Crow Snyder Jr., MD at [facility] OR Medications: Prior To Admission Medications: Medications Prior to Admission Medication Sig Dispense Refill Last Dose ??? lactobacillus rhamnosus, GG, (CULTURELLE) 10 billion cell Capsule Take 1 capsule by mouth daily.09/25/2018 at Unknown time ??? diclofenac (VOLTAREN) 1 % Gel Apply topically 4 times daily as needed. 09/25/2018 at Unknown time ??? atorvastatin (LIPITOR) 10 mg Tablet Take 10 mg by mouth daily. 09/25/2018 at Unknown time ??? dulaglutide (TRULICITY SUBQ) Inject subcutaneously once a week. 09/25/2018 at Unknown time ??? HYDROcodone-acetaminophen (NORCO) 5-325 mg Tablet Take 1 tablet by mouth 2 times daily. 09/26/2018at Unknown time ??? acetaminophen (TYLENOL) 325 mg Tablet Take 2 tablets by mouth every 6 hours. 30 tablet 1 09/26/2018 at Unknown time ??? aspirin 81 mg Tablet, Chewable Take 81 mg by mouth daily. 30 tablet 3 09/17/2018 at Unknown time ??? levalbuterol (XOPENEX HFA) 45 mcg/actuation HFA Aerosol Inhaler INHALE TWO PUFFS BY MOUTH EVERY 4 TO 6 HOURS NEEDED 3 Past Week at Unknown time ??? INCRUSE ELLIPTA 62.5 mcg/actuation Disk with Device INHALE ONE PUFF BY MOUTH EVERY DAY 5 09/24/2018 at Unknown time ??? glipiZIDE-metFORMIN (METAGLIP) 5-500 mg Tablet TAKE TWO TABLETS BY MOUTH TWICE A DAY 3 09/25/2018 at Unknown time ??? gabapentin (NEURONTIN) 600 mg Tablet TAKE ONE TABLET BY MOUTH THREE TIMES A DAY 1 09/26/2018 at Unknown time ??? spironolactone (ALDACTONE) 25 mg Tablet TAKE ONE TABLET BY MOUTH EVERY DAY 3 09/25/2018 at Unknowntime ??? carvedilol (COREG) 3.125 mg Tablet TAKE ONE TABLET BY MOUTH TWICE A DAY 3 09/26/2018 at Unknown time ??? lisinopril (PRINIVIL;ZESTRIL) 5 mg Tablet TAKE ONE TABLET BY MOUTH DAILY 3 09/25/2018 at Unknown time ??? magnesium oxide (MAG-OX) 400 mg (241.3 mg magnesium) Tablet TAKE ONE TABLET BY MOUTH TWICE A DAY1 09/26/2018 at Unknown time ??? multivitamin (THERAGRAN) tablet 09/25/2018 at Unknown time ??? loratadine (CLARITIN) 10 mg Tablet TAKE ONE TABLET BY MOUTH EVERY DAY NEEDED 3 09/24/2018 at Unknown time Inpatient Scheduled Medications: Scheduled Meds: ??? insulin lispro 2-8 Units Subcutaneous Q4H BERT ??? ceFEPime 2 g Intravenous Q8H ??? acetaminophen 1,000 mg Oral Q6H BERT ??? atorvastatin 10 mg Oral Daily ??? carvedilol 3.125 mg Oral BID ??? gabapentin 600 mg Oral TID ??? glipiZIDE 10 mg Oral BID AC ??? tiotropium 18 mcg Inhalation Daily ??? lactobacillus with pectin 1 capsule Oral Daily ??? spironolactone 25 mg Oral Daily ??? sodium chloride 0.9 % 5 mL Intravenous BID ??? docusate sodium 100 mg Oral BID Continuous Infusions: PRN Meds: Glucose 40% oral gel OR dextrose OR glucagon (human recombinant), glycerin (adult), diphenhydrAMINE, oxyCODONE OR oxyCODONE, loratadine, albuterol, sodium chloride 0.9 %, lidocaine, ondansetron OR ondansetron, bisacodyl, lidocaine-EPINEPHrine, BUpivacaine (PF), iohexol, bellad onna-opium Allergies: Allergies Allergen Reactions ??? Anafranil [Clomipramine] give me the flu ??? Augmentin [Amoxicillin-Pot Clavulanate] Hives and Itching ??? Cis Free Text Allergy Ketamine. CIS - hallucinations ??? Erythromycin Hives and Itching ??? Macrobid [Nitrofurantoin Monohyd/M-Cryst] Causes depression ??? Sulfa (Sulfonamide Antibiotics) Hives Social History: Social History Socioeconomic History ??? Marital status: Spouse name: Not on file ??? Number of children: Not on file ??? Years of education: Not on file ??? Highest education level: Not on file Social Needs ??? Financial resource strain: Not on file ??? Food insecurity - worry: Not on file ??? Food insecurity - inability: Not on file ??? Transportation needs - medical: Not on file ??? Transportation needs - non-medical: Not on file Occupational History ??? Not on file Tobacco Use ??? Smoking status: Former Smoker Packs/day: 1.00 Years: 30.00 Pack years: 30.00 Types: Cigarettes Last attempt to quit: 07/23/2016 Years since quittin.1 ??? Smokeless tobacco: Never Used Substance and Sexual Activity ??? Alcohol use: No Frequency: Never Comment: 3 X a year ??? Drug use: Not Currently Types: Marijuana, Pain Pills Comment: rarely used, once every few months ??? Sexual activity: Never Partners: Male Other Topics Concern ??? Not on file Social History Narrative ??? Not on file Family History: reviewed, non-contributory Family History Problem Relation Age of Onset ??? Cancer Father ??? Anesthesia Reaction Father ??? Cancer Sister Physical Exam: Last value Range last 48 hrs Temperature Temp: 36.9 ??C (98.4 ??F) Temp: [36.2 ??C (97.2 ??F)-39.3 ??C (102.7 ??F)] Heart Rate Heart Rate: 69 Heart Rate: [69-98] Blood Pressure BP: 125/66 BP: (60-168)/(37-77) Respiratory Rate Resp: 16 Resp: [13-22] SpO2 SpO2: 95 % SpO2: [91 %-99 %] General: Pleasant, alert, appropriate; NAD, non-toxic appearing HEENT: EOMI, no pallor, anicteric sclera. Cardiac: Normal rate, regular rhythm, late 2/6 systolic murmur appreciated over the USB bilaterally Respiratory: Nonlabored. CTA-B without wheezes/rhonchi/rales. Abd: NABS; soft, non-tender Back: Prior nephrostomy tube site clean and dry, some dried blood, but no active drainage, no surrounding erythema or induration, no tenderness. No CVA tenderness on the L either. No tenderness to spinous processes. Ext: WWP, no C/C/E Skin: Intact without rash; no lesions, no petechiae Neuro: CN II-XII grossly intact; grossly non-focal. Lines: PIV Laboratory Data: Recent Labs 09/29/18 0550 WBC 9.5 RBC 2.76* HGB 8.5* HCT 26.9* MCV 97.5* MCH 30.8 MCHC 31.6* PLATELET 148 RDWCV 12.8 Recent Labs 09/29/18 0550 09/28/18 0201 09/27/18 0149 NA 138 134* 134* K 3.7 3.9 4.0 CL 105 103 100 CO2 23 20* 20* BUN 13 19* 15 CREATININE 0.86 1.06 1.58* GLUCOSE 187 248* 206* Recent Labs 07/22/18 1803 07/09/18 1950 BILITOT 0.8 1.2 BILIDIR 0.2 0.3 ALBUMIN 3.9 3.8 ALKPHOS 77 73 ALT 20 25 AST 31* 32* No results found for: SEDRATE No results found for: CRP Microbiology: BLOOD Cx: 09/27/2018: Gram-negative himanshu on Gram stain with growth in anaerobic bottle, identification and susceptibility TBD URINE Cx: 07/09/2018 urine culture from [facility]: >100K Proteus mirabilis R: Unasyn, ciprofloxacin, nitrofurantoin, TMP SMX I: Gentamicin, tobramycin Sn: Cefazolin, ceftaz, ceftriaxone, piperacillin tazobactam 07/22/2018 urine culture from [facility]: 10-50K pseudomonas aeruginosa (plus mixed mucosal rasta) Sn to all tested (ceftaz, ciprofloxacin, gentamicin, imipenem, tobramycin, piperacillin tazobactam) 07/30/2018 urine culture from [facility]: >100K pseudomonas aeruginosa, same susceptibilities 10-50K Citrobacter freundii (R: cefazolin, ceftaz; I: Ceftriaxone; Sn: all else tested) 08/15/2018 urine culture from [facility]: Proteus mirabilis, same as above 09/26/2018 cystostomy urine: 10-49K Proteus mirabilis 10-49K pseudomonas aeruginosa Proteus mirabilis Pseudomonas aeruginosa MICROSCAN METHOD MICROSCAN METHOD Amikacin Sensitive Sensitive Ampicillin Resistant Ampicillin + Sulbactam Intermediate Aztreonam Sensitive Sensitive Cefazolin Intermediate Cefepime Sensitive Sensitive Ceftazidime Sensitive Sensitive Ceftriaxone Sensitive Cefuroxime Sensitive Ciprofloxacin Resistant Resistant Gentamicin Resistant Sensitive Levofloxacin Resistant Intermediate Meropenem Sensitive Sensitive Nitrofurantoin Resistant Piperacillin/Tazobactam Sensitive Sensitive Tetracycline Resistant Tobramycin Resistant Sensitive Trimethoprim/Sulfa Resistant 09/26/2018 kidney specimen, tissue culture: No microorganisms or neutrophils seen on Gram stain -Rare Proteus mirabilis growing on bacterial culture Proteus mirabilis MICROSCAN METHOD Amikacin Sensitive Ampicillin Resistant Ampicillin + Sulbactam Intermediate Aztreonam Sensitive Cefazolin Intermediate Cefepime Sensitive Ceftazidime Sensitive Ceftriaxone Sensitive Cefuroxime Sensitive Ciprofloxacin Resistant Gentamicin Resistant Levofloxacin Resistant Meropenem Sensitive Piperacillin/Tazobactam Sensitive Tetracycline Resistant Tobramycin Intermediate Trimethoprim/Sulfa Resistant 09/27/2018, indwelling Zheng catheter urine: 1-9K gram-negative rods Imaging/Diagnostics: 09/27/2018 CT abdomen + pelvis, WO: 1. Postoperative changes of the right kidney without retained stone. 2. Unchanged 1.9 cm nonobstructing calculus in the left consistent. 3. Left abdominal wall hernia containing small bowel without incarceration. Impression: Blossom Samayoa is a 57 y.o. female with a history of calcium oxalate nephrolithiasis and recurrent UTIs with sepsis and hydronephrosis this past June 2018, with urine cultures at the time positive for cephalosporin susceptible Proteus mirabilis, as well as a sensitive pseudomonas aeruginosa. Th is was managed with cystoscopically placed ureteral stent, and IV ceftriaxone transitioning to 14 days Cefpodoxime with urology follow-up. She is now admitted following her planned PCNL, which occurred09/26/2018 after 48 hours of doxycycline. Operative findings pertinent for an encrusted right ureteral stent that was not able to be removed in a retrograde fashion; and dilatation required to remove upper pole stones. At this time she has a newly replaced right ureteral stent, and [address] Cystoscopy urine has grown Proteus mirabilis and a quinolone-resistant Pseudomonas. Postoperative course has been complicated by high fevers and confusion, with gram-negative bacteremia being managed with cefepime. Blood cultures are growing a yet-identified GNR. For now, cefepime is reasonable to treat this infection. While it is often appropriate to step down from IV to oral antibiotics in the setting of a gram- negative bacteremia with urinary source, unfortunately the rasta quinolone resistant Pseudomonas limits what oral options will be available. She needs repeat blood cultures to document clearance. Please continue cefepime for now, final antibiotic recommendations to be determined. Recommendations: -For now, continue cefepime 2 g every 8 hours IV -Please repeat blood cultures to document clearance -Please consider transitioning scheduled acetaminophen to as needed, the patient does not require this for pain control and the interim fever suppression may mislead our assessment of clinical evolution -Anticipate she will need at least 7 days of targeted antibiotics following negative blood cultures,final recommendations including agent and duration to be determined with further clinical and microbial progress The patient was seen and discussed with ID attending Dr. Valdivia. Consultation and plan discussed with the primary team. X Consult service will continue to follow patient. Recommendations are above, please page if further consultation required. Maribeth Perry MD Infectious Disease Fellow Pager #[phone] Associated attestation - Kem Valdivia MD - 09/29/2018 8:25 PM EDT I have seen and examined this patient. I have reviewed and agree with the history, findings, assessment, and plan of care as documented by Dr. Mcmillan's note. I have personally reviewed the patient's medical record and pertinent lab and radiographic studies. The assessment and plan of care were formulated in discussion with me, and I agree with them as documented. 57 yo female admitted to the urology service for PCNL of a 1.6 cm right UPJ stone and a 4-5 mm rightureteral stone after stent placement June 2018. Right sided stones and stents were completely removed during surgery 09/[address]; she does have a persistent left sided non-obstructing stone. UCx and stone culture obtained during procedure has grown both Proteus mirabilis and Pseudomonas aeruginosa (fluoroquinolone resistant, unfortunately), and blood culture obtained after procedure when patient developed a fever is also growing GNRs pending identification. On evaluation today, patient appears to be improving, although she reports intermittent subjective fever/chills. She does report her initial right sided abdominal and back pain have improved since the surgery. Given her infected right stones and bacteremia, she will need treatment with an antibiotic targeting probably both the Proteus and Pseudomonas. Given the susceptibility pattern and the resistance of the GNRs to quinolones, I think she will likely need a course of intravenous antibiotics. Would continue patient on Cefepime 2 grams IV Q8hr for now pending BCx ID and susceptibility. Once blood culture results return, patient could have antibiotics deescalated to a less broad-spectrum antibiotic (e.g. Ceftazidime). Repeat BCx should also be followed to ensure clearing of bacteremia. Would anticipate an approximately 2 week course of antibiotic therapy for her infected stones/UTI and bacteremia. Of note, the status of her left stone is unclear and I'm not sure if there is concern for infection in this stone as well.ID team will need to touch base with Urology about this tomorrow. Kem Valdivia MD, MPH Infectious Disease Attending Plan of Care - Qamar Palencia RN - 09/28/2018 5:59 PM EST Problem: Patient Care Overview Goal: Plan of Care Review Outcome: Ongoing (Interventions Implemented as Appropriate) 09/28/18 8393 Plan of Care Review Progress progress toward functional goals as expected Coping/Psychosocial Plan Of Care Reviewed With patient OUTCOME EVALUATION NOTE: OUTCOME SUMMARY: Executing the patient centered plan of care. Positive blood cultures. MD team notified. IV antibiotics adjusted. OOB with 1 assist/cane. Tylenol provided as scheduled for fever. Patient responded well.Chest xray obtained. PLAN MOVING FORWARD: Will continue to evaluate and adjust as appropriate. INDIVIDUALIZED FALL PREVENTION INTERVENTIONS: Patient-specific fall risk factors per assessment: [current deficits]: Hospital setting, generalizedweakness Assistance [level of assistance required for transfers and ambulation]: Assist Surveillance [continuous indirect monitoring]: Indirect monitoring Patient-specific fall prevention interventions for sensory deficits provided, if applicable: Yes CPG GOAL OUTCOME EVALUATION: Ongoing. Consult Note - Shagufta Hernández RT - 09/28/2018 2:50 PM EST Respiratory Care Department Consult / Referral Note History: Blossom Samayoa is a 57 y.o. female with a PMHx significant for COPD/asthma, morbid obesity, sarcoidosis, GERD, PTSD, chronic prescription opiate use, nephrolithiasis, cardiomyopathy, 30 pack year former smoker who was admitted to the hospital for nephrolithotomy, cysto, uterteroscopy. Admission Date/Time 09/26/2018 10:24 AM Hospital Day 1 day Last Chest X-ray: Last CXR 09/28 1037 FINDINGS: Normal heart size. Clear lungs. Mediastinum and diaphragms are normal. There is extensivedegenerative changes seen in the thoracic spine. Assessment: Respiratory consult ordered for aerobika, inability to wean O2). Received patient on 1.5 lpm nc sleeping, had bene on room air but desat while sleeping. Patient being seen by respiratory for nocturnal NIV initiated yesterday with recent MOSES diagnosis and is awaiting delivery of a home unit, unsure of settings. Per report overnight did not tolerate BiPAP very long Home respiratory meds: Spiriva & albuterol Patient sleepy but easily wakes, laying in bed sating high 90s when weaned to room air. Good cough no secretions, diminished BBS. Patient wanting to nap so placed on auto-titrating bipap with no O2 bleed in and is currently maintaining sats in the mid 90s. Plan / Recommendation: Patient does not appear to need aerobika Encourage NIV at night and for naps. Ambulate/up to chair when able Encourage IS x10 breaths every hour while awake Continue respiratory meds per home use RT Elizabeth Plan of Care - Qamar Palencia RN - 09/27/2018 6:33 PM EST Problem: Patient Care Overview Goal: Plan of Care Review Outcome: Ongoing (Interventions Implemented as Appropriate) 09/27/18 6801 Plan of Care Review Progress improving Coping/Psychosocial Plan Of Care Reviewed With patient OUTCOME EVALUATION NOTE: OUTCOME SUMMARY: Executing the patient centered plan of care. Encouraging ambulation with 1 assist/ cane. Neph tube drains removed by MD team. Patient tolerated well. Adequate urine production. Pain well controlled with PRN medications. Patient experienced a temperature. Blood and urine cultures obtained. IV antibiotics administered. PLAN MOVING FORWARD: Will continue to evaluate and adjust as appropriate. INDIVIDUALIZED FALL PREVENTION INTERVENTIONS: Patient-specific fall risk factors per assessment: [current deficits]: Hospital setting, generalizedweakness Assistance [level of assistance required for transfers and ambulation]: Assist Surveillance [continuous indirect monitoring]: Indirect monitoring Patient-specific fall prevention interventions for sensory deficits provided, if applicable: Yes CPG GOAL OUTCOME EVALUATION: Ongoing. Initial Assessments - Jessica Sauceda RN - 09/27/2018 1:38 PM EST Office of Care Management Initial Assessment Jessica Sauceda RN reviewed record and discussed patient with Care Team. Source of Information: Patient, sister,team, bedside nurse and medical record Introduced self/reviewed role; services accepted. Summary for Hospitalization: 57 y.o. female w/ 1.6 cm right UPJ stone, as well as a 4-5 mm distal right ureteral stone s/p stent placement in June??who is now POD 1 s/p right PCNL ?? Marquis Christopher MD Date of Service: 09/27/2018 12:25 PM Reason for Hospitalization: Nephrolithiasis Patient Active Problem List Diagnosis Code ??? [...] Z87.891 ??? Chronic prescription opiate use Z79.891 Past medical History: Past Medical History: Diagnosis Date ??? Asthma ??? Bowel disease IBS ??? CHF (congestive heart failure) diag [facility] ??? Chronic lung disease sarcoidosis ??? [...] failure 'don't know if it's failure ??? jail current use of opiate analgesic PCP ??? Mental health problem ??? Obstructive sleep apnea diag 2007 ??? Osteoma of ear canal ??? Vertigo balance prob,last fall early Jun. Hospitalizations Within the Past 30 Days: None Anticipated Length Of Stay (If known): 1 day Admission order confirmed/dated: Crow Galvin Jr., MD 09/26/181900 Current Decision-Making Capacity: Self, A&Ox3, Full Capacity Advance Care Planning: Full Code Asked TYRONE Fitzpatrick to see patient regarding AD If AD's have not been completed sister Mona would be surrogate decision maker per [place] decision making law. (Only good for 90 days) Any patient receiving care at [facility] must abide by [place] law. The hierarchy for surrogate decision making [...] (i) The agent with financial power of staff attorney or a conservator appointed in accordance with RSA 464-A. (j) The guardian of the patient???s estate. Current Coping/Education/Information Needs: Happy with hospital services Current Functional Ability: SBA walker Functional Status Prior to Admission: Independent cane/walker Home Environment: Lives alone, 4 stairs to enter home and lives on one level [address] [facility] [address] [facility] [address] Social & Family Supports/Community Resources: sister, friend Extended Emergency Contact Information Primary Emergency Contact: Maria L Crain Relation: Friend Secondary Emergency Contact: Mona Samayoa Mobile Relation: Sibling Behavioral Health History: denies Other Pertinent/Service Specific Information: No Health/Prescription Coverage: Primary Insurance: MEDICARE Payor: MEDICARE / Plan: MEDICARE PART A & B / Product Type: *No Product type* / Secondary Insurance: N/A Prescription Coverage: Medicare D Preferred Pharmacy: [facility] - [place], [place] - [address] [facility] [address] [facility] [address] [facility] [address] - [place], [place] - [address] [facility] [address] [address] Primary Care Provider: Albert Zuleta MD [phone] Patient/Caregiver Goals of Treatment: get rid of kidney stones Potential Needs for Transition of Care: Rehab/SNF: n/a Home Health: The patient/sales training representative has been provided a list of Home Health Agencies/DME vendors which serve their preferred geographic area. A letter describing our affiliations was reviewed with them and theywere educated about their right to choose where referrals are placed. Patient requests referral to [facility]. PHONE: [phone] FAX: [phone]. Expected date of discharge: 09/28/18. Referral routed to the Patient Registration Representative for matching with agency/vendor and to provide any required information. DME: walker/cane Community Resources: No Transportation: Sister Dialysis: n/a Anticipated Barriers to Discharge/Special Considerations: none Assessment: [facility] routed and orders pended. No other discharge needs identified at this time. Plan: A member of the Care Management team will continue to monitor progress, follow for continuity of care and assist with transition of care planning. Jessica Sauceda RN euclid operator Pager: [phone] Plan of Care - Rah Verdin RN - 09/27/2018 4:38 AM EST Problem: Skin Integrity Impairment, Risk/Actual (Adult) Goal: Identify Related Risk Factors and Signs and Symptoms Related risk factors and signs and symptoms are identified upon initiation of Human Response Clinical Practice Guideline (CPG) Outcome: Ongoing (Interventions Implemented as Appropriate) 09/27/18 0433 Skin Integrity Impairment, Risk/Actual Skin Integrity Impairment, Risk/Actual: Related Risk Factors surgery/procedure Signs and Symptoms (Skin Integrity Impairment) inflammation OUTCOME EVALUATION NOTE: OUTCOME SUMMARY: VSS overall stable through the shift, though she did have low BPs on admission from PACU - x2 liter boluses given to increase BP and urine output.This patient's skin remains intact at this time with noreddened areas. Pt currently repositioning self in bed every 2 hrs. Pt verbalizes understanding to reposition self every 2 hrs to prevent skin breakdown and alert nurse when help is needed to do so. Will continue to monitor. This patient reports that her pain is adequately managed with the ordered medication regimen. This patient denies chest pain, shortness of breath, and nausea. The patient's dressing to the X2 right drains remains clean, dry, and intact. Last recorded vital signs: Last value Temperature Temp: 36.7 ??C (98.1 ??F) Heart Rate Heart Rate: 87 Blood Pressure BP: 99/45 Respiratory Rate Resp: 18 SpO2 SpO2: 96 % Recorded I/O: I/O this shift: In: 50 [Other:50] Out: 140 [Urine:115; Other:25] PLAN MOVING FORWARD: The plan moving forward with this patient is to work with PT/OT to increase this patients independence with ADLs. CT in AM for further drain evaluation. INDIVIDUALIZED FALL PREVENTION INTERVENTIONS: Patient-specific fall risk factors per assessment: [current deficits]: This patient has decreased general mobility and is in an unfamiliar environment. Assistance [level of assistance required for transfers and ambulation]: This patient requires 2 assist and a walker to ambulate. Supervision [direct monitoring required during toileting and ADLs]: This patient requires 1 assist with ADLs. Surveillance [continuous indirect monitoring]: Amadeo nursing knowledge exchange, purposeful rounding. Patient has history of: Past Medical History: Diagnosis Date ??? Asthma [...] failure 'don't know if it's failure ??? jail current use of opiate analgesic PCP ??? Mental health problem ??? Obstructive sleep apnea diag 2007 ??? Osteoma of ear canal ??? Vertigo balance prob,last fall early Jun. Past Surgical History: Procedure Laterality Date ??? PRO CYSTOSCOPY, INSERT URETERAL STENT Right 07/10/2018 CYSTO, STENT PLACEMENT (WRVU 2.82) performed by Viky Sears MD at [facility] OR ??? PRO CYSTOURETHROSCOPY, URETER CATHETER Right 07/10/2018 CYSTO, RETROGRADE, URETEROPYELOGRAPHY (WRVU 2.37) performed by Viky Sears MD at [facility] OR Patient has following SCHEDULED medications: ??? bolus IV fluid Intravenous Once ??? acetaminophen 650 mg Oral Q6H BERT ??? atorvastatin 10 mg Oral Daily ??? carvedilol 3.125 mg Oral BID ??? gabapentin 600 mg Oral TID ??? glipiZIDE 10 mg Oral BID AC ??? metFORMIN 1,000 mg Oral BID WC ??? tiotropium 18 mcg Inhalation Daily ??? lactobacillus with pectin 1 capsule Oral Daily ??? lisinopril 5 mg Oral Daily ??? spironolactone 25 mg Oral Daily ??? sodium chloride 0.9 % 5 mL Intravenous BID ??? docusate sodium 100 mg Oral BID ??? insulin lispro 1-4 Units Subcutaneous Q4H [facility] Patient has following PRN medications: oxyCODONE OR oxyCODONE, loratadine, albuterol, sodium chloride 0.9 %, lidocaine, ondansetron OR ondansetron, bisacodyl, lidocaine-EPINEPHrine, BUpivacaine (PF), iohexol, Glucose 40% oral gel OR dextrose OR glucagon (human recombinant), belladonna-opium CPG GOAL OUTCOME EVALUATION: Goal: Skin Integrity/Wound Healing Patient will demonstrate the desired outcomes by discharge/transition of care. Outcome: Ongoing (Interventions Implemented as Appropriate) 09/27/18432 Skin Integrity Impairment, Risk/Actual (Adult) Skin Integrity/Wound Healing making progress toward outcome Problem: Patient Care Overview Goal: Plan of Care Review Outcome: Ongoing (Interventions Implemented as Appropriate) 09/26/18219909/27/18432 Plan of Care Review Progress -- progress toward functional goals as expected Coping/Psychosocial Plan Of Care Reviewed With patient -- Goal: Individualization & Mutuality Outcome: Ongoing (Interventions Implemented as Appropriate) 09/27/1834109/27/18432 Individualization Patient Specific Preferences -- None Patient Specific Goals -- Sleep, pain management Patient Specific Interventions -- Care clustered, PRNs provided Mutuality/Individual Preferences What Anxieties, Fears or Concerns Do You Have About Your Health or Care? I'm concerned why I'm not peeing -- What Questions Do You Have About Your Health or Care? None -- What Information Would Help Us Give You More Personalized Care? None -- Goal: Fall Prevention-Safe Patient Handling Outcome: Ongoing (Interventions Implemented as Appropriate) 09/26/18219909/27/18399 Francois Fall Risk History of Falling 25 -- Secondary Diagnosis 15 -- Ambulatory Aids 0 -- Intravenous Therapy/Heparin/Saline Lock 20 -- Gait/Transferring 0 -- Mental Status 15 -- Score 75 -- OTHER Francois Fall Risk High -- Restraint Interventions Safety Promotion/Fall Prevention activity supervised;fall prevention program maintained;nonskid shoes/slippers when out of bed;safety round/check completed -- Positioning Body Position independent -- Activity Activity Type -- activity adjusted per tolerance Activity Assistance Provided -- assistance, 1 person Goal: Infection Control Outcome: Ongoing (Interventions Implemented as Appropriate) 09/26/182199 Safety Interventions Isolation Precautions standard precautions maintained Infection Prevention single patient room provided;rest/sleep promoted Coping Strategies Supportive Measures active listening utilized;decision-making supported;goal setting facilitated;problem solving facilitated;relaxation techniques promoted;self-care encouraged;verbalization of feelings encouraged Goal: Discharge Needs Assessment Outcome: Ongoing (Interventions Implemented as Appropriate) 09/27/18432 Discharge Needs Assessment Discharge Disposition still a patient Goal: Interdisciplinary Rounds/Family Conf Outcome: Ongoing (Interventions Implemented as Appropriate) 09/27/18432 Interdisciplinary Rounds/Family Conf Participants patient;nursing Op Note - Linda Rodriguez MD - 09/26/2018 8:59 PM EST Operative Note ?? Patient Name: Blossom Samayoa : [id number] MR#: [id number] ?? Case Date: 09/26/2018 ?? Surgeon: Surgeon(s) and Role: * Crow Galvin Jr., MD - Primary ?? Preoperative diagnosis: Right renal stone ?? Postoperative diagnosis: same ?? Procedure(s) (LRB): NEPHROLITHOTOMY, (PCNL) PERCUTANEOUS, OVER 2CM (WRVU 23.5) (Right) CYSTOURETEROSCOPY, DIAGNOSTIC (WRVU 5.75) (Right) CYSTO, REMOVAL OF STENT, FOREIGN BODY, CALCULUS, COMPLICATED (WRVU 5.2) (Right) NEPHROSTOMY CATHETER, [facility] DX NEPHROSTOGRAM/URETEROGRAM, IMG GUIDANCE (WRVU 4.25) (Right) CYSTO, RETROGRADE, URETEROPYELOGRAPHY, W/PCNL (WRVU 2.37) (Right) ULTRASONIC GUIDANCE, INTRAOP (WRVU 1.2) (Right) FLUOROSCOPY (WRVU 0.17) (N/A) ? Anesthesia: General ?? Findings: 1. Encrusted right ureteral stent, unable to remove in retrograde fashion 2. Access via midpole calyx via ultrasound guidance, dilated to 30 Fr, able to fragment and remove UPJ stone and encrusted stent with the LithoClast with this access, but unable to remove upper pole stones 3. Second access gained via fluoroscopic guidance in upper pole, dilated to 30 Fr, LithoClast used to remove upper pole stones here 4. Antegrade ureteroscopy revealed a distal ureteral stone, removed with Christoph Basket 5. 7 F V right ureteral stent placed 6. Two 24 Fr [place] catheters placed as nephrostomy tubes (more medial tube is the upper pole, lateral tube is the mid-pole access) 7. 5 Fr pollack catheters placed as ureteral re-entry catheters 8. 18 Fr zheng catheter placed, 10 cc sterile water instilled into balloon ?? Complications: none ?? Estimated Blood Loss: 200 cc ?? Specimens removed during surgery: ?? Order Name Source Comment Collection Info Order Time PATHOLOGY ORDER UPDATE ? 09/26/2018 3:35 PM Additional information: Additional Info ? Enter requested changes: right upper pole renal urine ? eD-H Order Id number [id number] ? PATHOLOGY ORDER UPDATE ? 09/26/2018 3:35 PM Additional information: Additional Info ? Enter requested changes: bladder urine ? eD-H Order Id number [id number] ? Fluids: see anesthesia record ?? PRBCs: none Urine Output: n/a ?? Drains: 7 F variable right ureteral stent 18 Fr zheng catheter with 10 cc sterile water instilled into the balloon Two 24 Fr [place] catheter as right nephrostomy tubes Two 5 Fr pollack catheter as right ureteral re-entry catheter ?? Disposition: awakened from anesthesia, extubated and taken to the recovery room in a stable condition, having suffered no apparent untoward event. ?? Condition: doing well without problems ?? (Please see the Surgical Encounter Summary for any Implant and Specimen details pertinent to this patient.) ?? Infection Bundle used? N/A ?? HPI/Surgical Indications: Blossom Samayoa is a 57 y.o. female with a 1.6 cm right UPJ stone, as well as a 4-5 mm distal right ureteral stone s/p stent placement in June 2018 who presents today for right PCNL with Dr. Galvin. Description of Procedure: Blossom Samayoa was identified in the pre-operative holding area. Consent was verified. The correct side of the procedure was marked. The patient was taken to the operating room and placed supine onthe operating table. General anesthesia was induced. The patient was then moved to the prone position, and the patient's perineum, flank, and back were prepped and draped in the usual sterile fashion. All pressure point were adequate padded to prevent neurapraxic injury. A timeout was performed involving all members of the OR team confirming the patient's identity and planned procedure. Preoperative antibiotics (Vancomycin and Gentamicin) were administered. ? A flexible cystoscope was passed through the urethra and into the bladder under direct vision. Bladder urine was sent for culture. The right ureteral stent was identified, grasped with a stent grasper.We were able to pull the stent down to the level of the meatus, but significant resistance was met and we were able to to actually remove the stent. A clamp was placed at the end of the stent at the meatus. The cystoscope was inserted back into the bladder. The right orifice was cannulated with a 5 Fr Pollack catheter. A glide wire was advanced via the catheter under fluoroscopic guidance, and the catheter was advanced to the renal pelvis. The wire was removed, and the catheter was secured in place. Retrograde pyelography was performed by injecting contrast via the catheter. ? An appropriate mid pole calyx was identified fluoroscopically and on ultrasound, and then targeted with ultrasound and entered under ultrasound guidance. After confirming calyceal entry, the inner sheath of the needle was removed and a glide wire was advanced. The glide wire was passed without difficulty through the UPJ and guided down the ureter [...] the tract into the collecting system. The 2 cm right UPJ stone was visualized. The LithoClast Select System was used for fragmentation of this stone, as well as the encrusted proximal curl of the ureteral stent. The rigid nephroscope was exchanged for the flexible nephroscope, which was used to inspect the the renal collecting system. No stone fragments were seen from this access tract, however, of fluoroscopy other stones were seen in the upper pole. Using theflexible ureteroscope, we were able to directly visualize the stones. We attempted to remove these stones with the zero-tip basket, but were unable to. Thus, we opted to place a second percutaneous access in the upper pole, using fluoroscopic guidance using the Bull's eye technique. After confirming calyceal entry, a glide wire was passed into the collecting system. The glide wire was guided through the UPJ and guided down the ureter to the bladder and out the urethra. An angiographic catheter was passed over the wire to exchange it for an Amplatz Super Stiff guide wire, which was used as the safety wire for percutaneous access. The 8/10 Fr dilator was passed over the Super Stiff wire. We opted not to place a second wire down this access tract. A NephroMax high pressure nephrostomy balloon catheter was advanced with the tip positioned in the calyx. The balloon was then inflated up to a pressure of 14 shirin. The 30 Fr access sheath was passed over the balloon to maintain the percutaneous tract. Again, the rigid nephroscope was advanced via this tract into the collecting system. The two stones in the upper pole were identified.The LithoClast Select System was used for fragmentation of these stones. The rigid nephroscope was exchanged for the flexible nephroscope, which was used to inspect the the remainder renal collecting system. No further stones were identified. The flexible ureteroscope was then advanced through the sheath and down the ureter. An additional distal ureteral stone fragment was removed with a Christoph basket. Once the entire ureter had been cleared, the kidney was inspected to ensure no residual fragments. A glide wire was passed via the ureteroscope, and the ureteroscope was removed. The nephroscope was back-loaded over the glide wire and advanced into the renal pelvis. A 7 Fr variable length double-J ureteral stent was passed over the wire and down the ureter under fluoroscopic guidance. The proximal curl was confirmed to be in the renal pelvis, and the distal curl in the bladder. The nephroscope was removed. For each access, a 24 Fr [place] catheter was passed over the working Super Stiff guide wire into the renal pelvis under fluoroscopic guidance. Contrast was again instilled to ensure adequate placement. For each access, a 5 Fr Pollack catheter was inserted via the [place] catheter to be used as a safety re-entry catheter. The [place]man[place] catheters were secured to the skin using two 0 silk sutures each. The guide wire was removed from the [place] and Pollack catheter combination. The remaining safety wire was removed. There was bleeding at the mid pole access site. Pressure was held for about 5 minutes and hemostasiswas achieved. 20 mL solution of local anesthetic was injected at and around the access site for local anesthesia. The nephrostomy sites were dressed with dry sterile gauze. The two nephrostomy tubes and Zheng catheter were connected to gravity drainage. Fluoroscopic assessment of the fully expanded lung was performed. No pneumothorax, effusion, or other acute cardiopulmonary abnormality was seen. ?? The patient tolerated the procedure well and was moved to the supine position before being awakened from anesthesia with no adverse events. A sponge and instrument count was performed and the counts were correct. The patient was taken to the recovery area in stable condition. Dr. Galvin, the attending surgeon, was present for the entire procedure. Brief Op Note - Linda Rodriguez MD - 09/26/2018 6:34 PM EST Brief Operative Note Patient Name: Blossom Samayoa : [id number] MR#: [id number] Case Date: 09/26/2018 Surgeon: Surgeon(s) and Role: * Crow Galvin Jr., MD - Primary Preoperative diagnosis: Right renal stone Postoperative diagnosis: same Procedure(s) (LRB): NEPHROLITHOTOMY, (PCNL) PERCUTANEOUS, OVER 2CM (WRVU 23.5) (Right) CYSTOURETEROSCOPY, DIAGNOSTIC (WRVU 5.75) (Right) CYSTO, REMOVAL OF STENT, FOREIGN BODY, CALCULUS, COMPLICATED (WRVU 5.2) (Right) NEPHROSTOMY CATHETER, [facility] DX NEPHROSTOGRAM/URETEROGRAM, IMG GUIDANCE (WRVU 4.25) (Right) CYSTO, RETROGRADE, URETEROPYELOGRAPHY, W/PCNL (WRVU 2.37) (Right) ULTRASONIC GUIDANCE, INTRAOP (WRVU 1.2) (Right) FLUOROSCOPY (WRVU 0.17) (N/A) Anesthesia: General Findings: 1. Encrusted right ureteral stent, unable to remove in retrograde fashion 2. Access via midpole calyx via ultrasound guidance, dilated to 30 Fr, able to fragment and remove UPJ stone and encrusted stent with the LithoClast with this access, but unable to remove upper pole stones 3. Second access gained via fluoroscopic guidance in upper pole, dilated to 30 Fr, LithoClast used to remove upper pole stones here 4. Antegrade ureteroscopy revealed a distal ureteral stone, removed with Christoph Basket 5. 7 F V right ureteral stent placed 6. Two 24 Fr [place] catheters placed as nephrostomy tubes (more medial tube is the upper pole, lateral tube is the mid-pole access) 7. 5 Fr pollack catheters placed as ureteral re-entry catheters 8. 18 Fr zheng catheter placed, 10 cc sterile water instilled into balloon Complications: none Estimated Blood Loss: 200 cc Specimens removed during surgery: Order Name Source Comment Collection Info Order Time PATHOLOGY ORDER UPDATE 09/26/2018 3:35 PM Additional information: Additional Info Enter requested changes: right upper pole renal urine eD-H Order Id number [id number] PATHOLOGY ORDER UPDATE 09/26/2018 3:35 PM Additional information: Additional Info Enter requested changes: bladder urine eD-H Order Id number [id number] Fluids: see anesthesia record PRBCs: none Urine Output: n/a Drains: 7 F variable right ureteral stent 18 Fr zheng catheter with 10 cc sterile water instilled into the balloon Two 24 Fr Emani catheter as right nephrostomy tubes Two 5 Fr pollack catheter as right ureteral re-entry catheter Disposition: awakened from anesthesia, extubated and taken to the recovery room in a stable condition, having suffered no apparent untoward event. Condition: doing well without problems (Please see the Surgical Encounter Summary for any Implant and Specimen details pertinent to this patient.) Infection Bundle used? N/A Plan: 1. Holding ASA 81 mg 2. Ordered home diabetes medications, as well as ISS 3. PACU BMP and CBC 4. PTH in the AM to assess for hyperparathyroidism 5. Home lisinopril, Lipitor, probiotic, Claritin, carvedilol, spironlactone, gabapentin ordered 6. RT consult for CPAP at night given new diagnosis of MOSES 7. If nephrostomy tubes clot off, do NOT flush, but ensure that the zheng catheter is draining Associated attestation - Crow Galvin Jr., MD - 09/26/2018 7:02 PM EST I was present and I participated during the entire procedure. documented in this encounter Plan of Treatment Upcoming Encounters Date Type Specialty Care Team Description 03/15/2022 Office Visit Neurology Ryann Barfield APRN [facility] [address] [place], [place] [address] 03/23/2022 Appointment Radiology Hailey Mcclendon MD [facility] [address] [place] [address] 03/23/2022 Laboratory Appointment Lab 03/23/2022 Office Visit Gastroenterology Hailey Mcclendon MD [facility] RICHARD [place] 0[address] 05/23/2022 Procedure visit Maxillofacial Surgery Corby Montes MD [facility] [address] [place] [address] Scheduled Referrals Name Type Priority Associated Order Schedule Diagnoses OPAT: Order / Outpatient Referral Routine Recurrent UTI Ordere d: Recommendation for Post (urinary tract Discharge IV Antibiotic infectio n) Management Bacteremia due to Gram-negative bacteria documented as of this encounter Procedures Procedure Name Priority Date/Time Associated Diagnosis Comme nts POCT GLUCOSE Routine 10/01/2018 12:06 Results for this PM EDT procedure are i n the results section. XR PICC PLACEMENT Routine 10/01/2018 11:36 Result s for this OVER 5 YEARS (IV AM EDT procedure a re in TEAM) the results section. PLACE PICC LINE: Routine 10/01/2018 11:05 Results for this CONTACT VASCULAR AM EDT procedure a re in ACCESS the results section. POCT GLUCOSE Routine 10/01/2018 7:52 AM Results f or this EDT procedure are i n the results section. POCT GLUCOSE Routine 10/01/2018 4:58 AM Results f or this EDT procedure are i n the results section. POCT GLUCOSE Routine 09/30/2018 11:29 Results for this PM EDT procedure are i n the results section. POCT GLUCOSE Routine 09/30/2018 8:34 PM Results f or this EDT procedure are i n the results section. POCT GLUCOSE Routine 09/30/2018 4:43 PM Results f or this EDT procedure are i n the results section. POCT GLUCOSE Routine 09/30/2018 12:03 Results for this PM EDT procedure are i n the results section. POCT GLUCOSE Routine 09/30/2018 7:23 AM Results f or this EDT procedure are i n the results section. HEMOGRAM Routine 09/30/2018 5:18 AM Results f or this EDT procedure are i n the results section. DIFFERENTIAL, Routine 09/30/2018 5:18 AM Results for this AUTOMATED EDT procedure are i n the results section. CBC (WITH DIFF) Routine 09/30/2018 5:18 AM EDT BASIC METABOLIC Routine 09/30/2018 5:18 AM Result s for this PANEL (NON-FASTING) EDT procedur e are in the results section. POCT GLUCOSE Routine 09/30/2018 4:26 AM Results f or this EDT procedure are i n the results section. POCT GLUCOSE Routine 09/29/2018 11:09 Results for this PM EDT procedure are i n the results section. POCT GLUCOSE Routine 09/29/2018 8:03 PM Results f or this EDT procedure are i n the results section. POCT GLUCOSE Routine 09/29/2018 4:50 PM Results f or this EDT procedure are i n the results section. POCT GLUCOSE Routine 09/29/2018 12:23 Results for this PM EDT procedure are i n the results section. POCT GLUCOSE Routine 09/29/2018 10:50 Results for this AM EDT procedure are i n the results section. POCT GLUCOSE Routine 09/29/2018 8:46 AM Results f or this EDT procedure are i n the results section. BLOOD CULTURE Routine 09/29/2018 8:24 AM Results for this EDT procedure are i n the results section. BLOOD CULTURE Routine 09/29/2018 8:19 AM Results for this EDT procedure are i n the results section. HEMOGRAM Routine 09/29/2018 5:50 AM Results f or this EDT procedure are i n the results section. DIFFERENTIAL, Routine 09/29/2018 5:50 AM Results for this AUTOMATED EDT procedure are i n the results section. CBC (WITH DIFF) Routine 09/29/2018 5:50 AM EDT BASIC METABOLIC Routine 09/29/2018 5:50 AM Result s for this PANEL (NON-FASTING) EDT procedur e are in the results section. POCT GLUCOSE Routine 09/29/2018 3:57 AM Results f or this EDT procedure are i n the results section. POCT GLUCOSE Routine 09/29/2018 12:27 Results for this AM EST procedure are i n the results section. POCT GLUCOSE Routine 09/28/2018 8:35 PM Results f or this EST procedure are i n the results section. POCT GLUCOSE Routine 09/28/2018 4:28 PM Results f or this EST procedure are i n the results section. POCT GLUCOSE Routine 09/28/2018 1:52 PM Results f or this EST procedure are i n the results section. POCT GLUCOSE Routine 09/28/2018 11:49 Results for this AM EST procedure are i n the results section. XR CHEST PA AND Routine 09/28/2018 10:37 Results for this LATERAL AM EST procedure are i n the results section. POCT GLUCOSE Routine 09/28/2018 8:05 AM Results f or this EST procedure are i n the results section. HEMOGRAM Routine 09/28/2018 2:01 AM Results f or this EST procedure are i n the results section. DIFFERENTIAL, Routine 09/28/2018 2:01 AM Results for this AUTOMATED EST procedure are i n the results section. CBC (WITH DIFF) Routine 09/28/2018 2:01 AM EST BASIC METABOLIC Routine 09/28/2018 2:01 AM Result s for this PANEL (NON-FASTING) EST procedur e are in the results section. POCT GLUCOSE Routine 09/27/2018 7:56 PM Results f or this EST procedure are i n the results section. URINE HOLD STAT 09/27/2018 4:33 PM Results f or this EST procedure are i n the results section. URINE CULTURE STAT 09/27/2018 4:33 PM Results for this EST procedure are i n the results section. BLOOD CULTURE STAT 09/27/2018 4:32 PM Results for this EST procedure are i n the results section. BLOOD CULTURE STAT 09/27/2018 4:32 PM Results for this EST procedure are i n the results section. POCT GLUCOSE Routine 09/27/2018 3:55 PM Results f or this EST procedure are i n the results section. POCT GLUCOSE Routine 09/27/2018 11:19 Results for this AM EST procedure are i n the results section. POCT GLUCOSE Routine 09/27/2018 7:25 AM Results f or this EST procedure are i n the results section. CT ABDOMEN AND Routine 09/27/2018 5:07 AM Results for this PELVIS WO CONTRAST EST procedure are in the results section. POCT GLUCOSE Routine 09/27/2018 3:49 AM Results f or this EST procedure are i n the results section. PTH Routine 09/27/2018 1:49 AM Results f or this EST procedure are i n the results section. HEMOGRAM Timed 09/27/2018 1:49 AM Results f or this EST procedure are i n the results section. DIFFERENTIAL, Timed 09/27/2018 1:49 AM Results for this AUTOMATED EST procedure are i n the results section. CBC (WITH DIFF) Timed 09/27/2018 1:49 AM EST BASIC METABOLIC Timed 09/27/2018 1:49 AM Result s for this PANEL (NON-FASTING) EST procedur e are in the results section. POCT GLUCOSE Routine 09/26/2018 11:35 Results for this PM EST procedure are i n the results section. EKG 12-LEAD STAT 09/26/2018 7:33 PM Tachycardia Results f or this EST procedure are i n the results section. HEMOGRAM STAT 09/26/2018 7:15 PM Results f or this EST procedure are i n the results section. DIFFERENTIAL, STAT 09/26/2018 7:15 PM Results for this AUTOMATED EST procedure are i n the results section. CBC (WITH DIFF) STAT 09/26/2018 7:15 PM EST BASIC METABOLIC STAT 09/26/2018 7:15 PM Result s for this PANEL (NON-FASTING) EST procedur e are in the results section. POCT GLUCOSE Routine 09/26/2018 7:02 PM Results f or this EST procedure are i n the results section. XR FLUORO NO RAD Routine 09/26/2018 6:30 PM Resul ts for this <1HR - OR USE EST procedure are in the results section. KIDNEY STONE Routine 09/26/2018 5:36 PM Results f or this ANALYSIS EST procedure are i n the results section. ANAEROBIC CULTURE Routine 09/26/2018 5:36 PM Resu lts for this EST procedure are i n the results section. TISSUE CULTURE, Routine 09/26/2018 5:36 PM AEROBIC & ANAEROBIC EST TISSUE CULTURE Routine 09/26/2018 5:36 PM Results for this EST procedure are i n the results section. URINE CULTURE Routine 09/26/2018 3:22 PM Results for this EST procedure are i n the results section. URINE CULTURE Routine 09/26/2018 3:22 PM Results for this EST procedure are i n the results section. FLUOROSCOPY (WRVU Yes 09/26/2018 2:08 PM Right renal stone 0.17) EST ULTRASONIC GUIDANCE, Yes 09/26/2018 2:[address] one INTRAOP (WRVU 1.2) EST CYSTO, RETROGRADE, Yes 09/26/2018 2:08 PM Right renal ston e URETEROPYELOGRAPHY, EST W/PCNL (WRVU 2.37) NEPHROSTOMY Yes 09/26/2018 2:08 PM Right renal stone CATHETER, PERC, INC EST DX NEPHROSTOGRAM/URETER OGRAM, IMG GUIDANCE (WRVU 4.25) CYSTO, REMOVAL OF Yes 09/26/2018 2:08 PM Right renal stone STENT, FOREIGN BODY, EST CALCULUS, COMPLICATED (WRVU 5.2) CYSTOURETEROSCOPY, Yes 09/26/2018 2:08 PM Right renal ston e DIAGNOSTIC (WRVU EST 5.75) NEPHROLITHOTOMY, Yes 09/26/2018 2:08 PM Right renal stone (PCNL) PERCUTANEOUS, EST OVER 2CM (WRVU 23.5) POCT GLUCOSE Routine 09/26/2018 12:22 Results for this PM EST procedure are i n the results section. documented in this encounter Results POCT Glucose (10/01/2018 12:06 PM EDT) P athologist Signature POC Glucose 129 65 - 199 [facility] mg/dL [facility] Comment: Supplemental ranges: <140 mg/dL before meals <180 mg/dL all other times of the day Specimen Anatomical Collection Method Collection Time Receive d Time (Source) Location / / Volume Laterality Blood specimen 10/01/2018 12:06 9 (specimen) PM EDT 12:06 PM EDT Crow Galvin Jr., MD POINT OF CARE TEST ORDERABLE S Performing Organization Address City/State/[place] [address] XR PICC Placement Over 5 Years with Imaging Guidance (IV Team) (10/01/2018 11:36 AM EDT) Anatomical Region Laterality Modality N/A Radio Fluoroscopy Specimen (Source) Anatomical Location Collection Method / Collectio n Time Received Time / Laterality Volume Impressions 10/01/2018 11:38 AM EDT Right-sided PICC catheter terminates in the low SVC. Thank you for letting us participate in the care of this patient. For questions regarding this report, please contact e number below. ? Narrative 10/01/2018 11:38 AM EDT EXAMINATION: XR PICC PLACEMENT OVER 5 YEARS WITH IMAGING GUIDANCE (IV TEAM) CLINICAL HISTORY: Confirmation of PICC l ine placement TECHNIQUE: C-arm placement of PICC line. Limited view of the line tip only. COMPARISON: FINDINGS: Intraprocedural frontal radiog raph of the mediastinum demonstrates a right upper extremity PICC line, with th e catheter tip projected at the low SVC. Procedure Note Steven Bell MD - 10/01/2018Formattin g of this note might be different from the original. EXAMINATION: XR PICC PLACEMENT OVER 5 YE ARS WITH IMAGING GUIDANCE (IV TEAM) CLINICAL HISTORY: Confirmation of PICC l ine placement TECHNIQUE: C-arm placement of PICC line. Limited view of the line tip only. COMPARISON: FINDINGS: Intraprocedural frontal radiog raph of the mediastinum demonstrates a right upper extremity PICC line, with th e catheter tip projected at the low SVC. IMPRESSION Right-sided PICC catheter terminates in the low SVC. Thank you for letting us participate in the care of this patient. For questions regarding this report, please contact e number below. Crow Galvin Jr., MD IMJean Pierre FLUORO ORDERABLES Place PICC Line: Contact Vascular Access Page [phone] Extremity to exclude: No restrictions; Is PICC procedure required PRIOR to patients discharge? Yes (10/01/2018 11:05 AM EDT) Narrative Chicho Milan RN - 10/01/2018 11:05 AM EDT Chicho Milan RN ? 10/01/2018 11:44 AM PICC/Midline Insertion Procedure Note Indications: Anti-infective and Access This insertion was not to replace a malf unctioning catheter. This insertion was not due to a suspecte d line-associated infection. Location of Procedure: X-Ray Room 11 Risks and Benefits: The risks and benefits of this procedure were reviewed and informed consent was obtained obtained. Time Out: Prior to the start of the procedure, the patient's identity, intended procedure, site/side, correct p atient positioning and presence of the site adan was confirmed as applicable. The medical history and chart were reviewed to rule out potential contraindications to the planned procedu re. Hand Hygiene: The thoracic surgeon did perform hand hygiene pr ior to line insertion. Catheter type: PICC Lot number: [id number] Procedure Technique: Skin was prepped with chlorhexidine. Skin preparation agent was completely dr y at the time of first skin puncture. The following barrier precaution methods were used:large sterile drape, maske/eye shield, large sterile g own, sterile gloves and cap. 2 ml of 1% Lidocaine was used for skin w heal. Ultrasound was used for guidance. ??Radiographic contrast ag ent was not injected for vein identification. Procedure Details: Order received for catheter placement. A 4 Fr. single lumen Bard Power catheter was placed into the right basilic vein over a 0.018 inch guidewire using modified seld bonnie technique and fluoroscopy. Arm circumference was 39 cm at 2 cm above the insertion site. Final catheter length (with trimming): 4 9 cm Internal: 49 cm External: 0 cm Tip in SVC per DR BELL. The line was not placed over a guidewire . Post Procedure: Diagnosis: BACTEREMIA Blood return noted on aspiration of line after placement confirmed. 5 mls of normal saline infuse d free flowing to gravity via PICC after insertion. Sterile dressi ng applied: CHG Impregnated Tegaderm. Findings: The patient did tolerate the procedure w ell. No Complications. Procedure Comments: CHICHO MILAN RN 10/01/2018 Crow Galvin Jr., MD PROCEDURE/MINOR SURGICAL ORD ERABLES POCT Glucose (10/01/2018 7:52 AM EDT) athologist Signature POC Glucose 155 65 - 199 [facility] Comment: Supplemental ranges: <140 mg/dL before meals <180 mg/dL all other times of the day Specimen Anatomical Collection Method Collection Time Receive d Time (Source) Location / / Volume Laterality Blood specimen 10/01/2018 7:52 AM 019 7:52 (specimen) EDT AM EDT Crow Galvin Jr., MD POINT OF CARE TEST ORDERABLE S Performing Organization Address City/[facility]/[place] [address] POCT Glucose (10/01/2018 4:58 AM EDT) athologist Signature POC Glucose 174 65 - 199 [facility] mg/dL [facility] Comment: Supplemental ranges: <140 mg/dL before meals <180 mg/dL all other times of the day Specimen Anatomical Collection Method Collection Time Receive d Time (Source) Location / / Volume Laterality Blood specimen 10/01/2018 4:58 AM 019 4:58 (specimen) EDT AM EDT Crow Galvin Jr., MD POINT OF CARE TEST ORDERABLE S Performing Organization Address City/State/[place] [address] POCT Glucose (09/30/2018 11:29 PM EDT) athologist Signature POC Glucose 154 65 - 199 [facility] [place] mg/dL [facility] Comment: Supplemental ranges: <140 mg/dL before meals <180 mg/dL all other times of the day Specimen Anatomical Collection Method Collection Time Receive d Time (Source) Location / / Volume Laterality Blood specimen 09/30/2018 11:29 9 (specimen) PM EDT 11:29 PM EDT Crow Galvin Jr., MD POINT OF CARE TEST ORDERABLE S Performing Organization Address City/State/[place] [address] (ABNORMAL) POCT Glucose (09/30/2018 8:34 PM EDT) athologist Signature POC Glucose 203 (H) 65 - 199 [facility] mg/dL [facility] Comment: Supplemental ranges: <140 mg/dL before meals <180 mg/dL all other times of the day Specimen Anatomical Collection Method Collection Time Receive d Time (Source) Location / / Volume Laterality Blood specimen 09/30/2018 8:34 PM 019 8:34 (specimen) EDT PM EDT Crow Galvin Jr., MD POINT OF CARE TEST ORDERABLE S Performing Organization Address City/State/[place] [address] POCT Glucose (09/30/2018 4:43 PM EDT) athologist Signature POC Glucose 134 65 - 199 [place] [place] mg/dL [facility] Comment: Supplemental ranges: <140 mg/dL before meals <180 mg/dL all other times of the day Specimen Anatomical Collection Method Collection Time Receive d Time (Source) Location / / Volume Laterality Blood specimen 09/30/2018 4:43 PM 019 4:43 (specimen) EDT PM EDT Crow Galvin Jr., MD POINT OF CARE TEST ORDERABLE S Performing Organization Address City/State/ZIP Code Phon [place] [facility] [address] POCT Glucose (09/30/2018 12:03 PM EDT) athologist Signature POC Glucose 173 65 - 199 [facility] mg/dL [facility] Comment: Supplemental ranges: <140 mg/dL before meals <180 mg/dL all other times of the day Specimen Anatomical Collection Method Collection Time Receive d Time (Source) Location / / Volume Laterality Blood specimen 09/30/2018 12:03 9 (specimen) PM EDT 12:03 PM EDT Crow Galvin Jr., MD POINT OF CARE TEST ORDERABLE S Performing Organization Address City/State/ZIP Code Phon e Number [address] POCT Glucose (09/30/2018 7:23 AM EDT) athologist Signature POC Glucose 195 65 - 199 [facility] mg/dL [facility] Comment: Supplemental ranges: <140 mg/dL before meals <180 mg/dL all other times of the day Specimen Anatomical Collection Method Collection Time Receive d Time (Source) Location / / Volume Laterality Blood specimen 09/30/2018 7:23 AM 019 7:23 (specimen) EDT AM EDT Crow Galvin Jr., MD POINT OF CARE TEST ORDERABLE S Performing Organization Address City/State/ZIP Code Phon e Number [address] (ABNORMAL) Differential, Automated (09/30/2018 5:18 AM EDT) athologist Signature Neutrophils % 58.9 % [facility] Neutr Abs (ANC) 6.10 1.70 - [facility] 6.10 [facility] x10(3)/[facility] LABORATORY Lymphocytes % 30.5 % [facility] Lymphocytes Abs 3.2 0.9 - 3.2 [facility] x10(3)/[facility] LABORATORY Monocytes % 6.9 % [facility] Monocyte Abs 0.7 0.3 - 0.9 [facility] x10(3)/[facility] LABORATORY Eosinophils % 2.8 % [facility] Eosinophils Abs 0.3 0.0 - 0.4 [facility] x10(3)/[facility] LABORATORY Basophils % 0.3 % [facility] Basophils Abs 0.0 0.0 - 0.1 [facility] x10(3)/[facility] LABORATORY Immature Gran % 0.60 % [facility] Comment: Immature granulocytes(IG's)percentage an d absolute count will include metamyelocytes, myelocytes, and promyelo cytes. Blood smears from CBCs yielding IG's will be scanned manually for concor dance. If this scan disagrees with the automated IG or if promyelocytes are not ed, a manual differential will be performed. Irina Gran Abs 0.06 (H) 0.00 - 0.04 x10(3)/[facility] LABORATORY Specimen Anatomical Collection Method Collection Time Receive d Time (Source) Location / / Volume Laterality Blood specimen 09/30/2018 5:18 AM 019 5:25 (specimen) EDT AM EDT Resulting Agency Comment Spec In Lab Leon Razo MD HEMATOLOGY ORDERABLES Performing Organization Address City/State/[place] [address] (ABNORMAL) Hemogram (09/30/2018 5:18 AM EDT) Analysis Performed At Patho logist Time Signature WBC 10.3 (H) 4.0 - 9.5 [facility] x10(3)/[facility] LABORATORY RBC 3.35 (L) 4.00 - [facility] 5.21 [facility] x10(6)/[facility] LABORATORY Hemoglobin 10.1 (L) 11.7 - [facility] 15.5 gm/dL [facility] Hematocrit 32.7 (L) 35.7 - [facility] 45.8 % [facility] MCV 97.6 (H) 82.6 - [facility] 94.4 fL [facility] MCH 30.1 27.1 - [facility] 32.0 pg [facility] MCHC 30.9 (L) 31.7 - [facility] 35.0 gm/dL [facility] Platelets 186 145 - 357 [facility] x10(3)/[facility] LABORATORY RDWSD 45.1 37.0 - [facility] [address] LABORATORY RDWCV 12.6 11.5 - [facility] 14.1 % [facility] MPV 11.0 7.6 - 12.9 [facility] LABORATORY nRBC % Auto 0.0 % [facility] nRBC Abs Auto 0.000 0.000 - [facility] 0.000 [facility] x10(3)/[facility] LABORATORY Specimen Anatomical Collection Method Collection Time Receive d Time (Source) Location / / Volume Laterality Blood specimen 09/30/2018 5:18 AM 019 5:25 (specimen) EDT AM EDT Resulting Agency Comment Spec In Lab Leon Razo MD HEMATOLOGY ORDERABLES Performing Organization Address City/State/[place] [address] (ABNORMAL) Basic Metabolic Panel (non-fasting) (09/30/2018 5:18 AM EDT) P athologist Signature Glucose Lvl 176 65 - 199 [facility] mg/dL [facility] Comment: Diabetes: >=200 mg/dL plus symp toms BUN 13 8 - 18 mg/dL [facility] Creatinine 0.83 0.70 - 1.20 mg/dL [facility] Sodium 138 135 - 145 mmol/L [facility] Potassium 3.9 3.5 - 5.0 mmol/L [facility] Comment: Please note: ??Patients with WBC >100,00 0 may have falsely elevated Potassium levels. ??For accurate Potassium quantif ication in these patients send serum separator tube (gold top) for subsequent determinations. ??Contact the Clinical Chemistry Laboratory if there are any qu estions. Chloride 101 98 - 107 mmol/L [facility] CO2 23 22 - 31 mmol/L [facility] Anion Gap 14 5 - 15 mmol/L [facility] Calcium 10.7 (H) 8.5 - 10.5 mg/dL [facility] Estimated GFR 78 >=60 mL/min/1.73 m?? [facility] Comment: The eGFR was calculated using the CKD-EP I equation. As with all creatinine based estimates of kidney function, eGFR values calculated with the CKD-EPI equation are not accurate in patients wi th acute kidney failure, extremes of body mass or the acutely ill. [email or web address] eGFR 90 >=60 mL/min/1.73 m?? [facility] Comment: The eGFR was calculated using the CKD-EP I equation. As with all creatinine based estimates of kidney function, eGFR values calculated with the CKD-EPI equation are not accurate in patients wi th acute kidney failure, extremes of body mass or the acutely ill. [email or web address] Specimen Anatomical Collection Method Collection Time Receive d Time (Source) Location / / Volume Laterality Blood specimen 09/30/2018 5:18 AM 019 5:25 (specimen) EDT AM EDT Resulting Agency Comment Spec In Lab Crow Galvin Jr., MD CHEMISTRY ORDERABLES Performing Organization Address City/State/ZIP Code Phon e Number [address] POCT Glucose (09/30/2018 4:26 AM EDT) P athologist Signature POC Glucose 141 65 - 199 [facility] mg/dL [facility] Comment: Supplemental ranges: <140 mg/dL before meals <180 mg/dL all other times of the day Specimen Anatomical Collection Method Collection Time Receive d Time (Source) Location / / Volume Laterality Blood specimen 09/30/2018 4:26 AM 019 4:26 (specimen) EDT AM EDT Crow Galvin Jr., MD POINT OF CARE TEST ORDERABLE S Performing Organization Address City/State/ZIP Code Phon e Number [address] POCT Glucose (09/29/2018 11:09 PM EDT) athologist Signature POC Glucose 161 65 - 199 [place] mg/dL [facility] Comment: Supplemental ranges: <140 mg/dL before meals <180 mg/dL all other times of the day Specimen Anatomical Collection Method Collection Time Receive d Time (Source) Location / / Volume Laterality Blood specimen 09/29/2018 11:09 9 (specimen) PM EDT 11:09 PM EDT Crow Galvin Jr., MD POINT OF CARE TEST ORDERABLE S Performing Organization Address City/State/[place] [address] (ABNORMAL) POCT Glucose (09/29/2018 8:03 PM EDT) athologist Signature POC Glucose 269 (H) 65 - 199 [place] mg/dL [facility] Comment: Supplemental ranges: <140 mg/dL before meals <180 mg/dL all other times of the day Specimen Anatomical Collection Method Collection Time Receive d Time (Source) Location / / Volume Laterality Blood specimen 09/29/2018 8:03 PM 019 8:03 (specimen) EDT PM EDT Crow Galvin Jr., MD POINT OF CARE TEST ORDERABLE S Performing Organization Address City/State/[place] [address] POCT Glucose (09/29/2018 4:50 PM EDT) athologist Signature POC Glucose 169 65 - 199 [place] mg/dL [facility] Comment: Supplemental ranges: <140 mg/dL before meals <180 mg/dL all other times of the day Specimen Anatomical Collection Method Collection Time Receive d Time (Source) Location / / Volume Laterality Blood specimen 09/29/2018 4:50 PM 019 4:50 (specimen) EDT PM EDT Crow Galvin Jr., MD POINT OF CARE TEST ORDERABLE S Performing Organization Address City/State/[place] [address] POCT Glucose (09/29/2018 12:23 PM EDT) athologist Signature POC Glucose 151 65 - 199 [place] mg/dL [facility] Comment: Supplemental ranges: <140 mg/dL before meals <180 mg/dL all other times of the day Specimen Anatomical Collection Method Collection Time Receive d Time (Source) Location / / Volume Laterality Blood specimen 09/29/2018 12:23 9 (specimen) PM EDT 12:23 PM EDT Crow Galvin Jr., MD POINT OF CARE TEST ORDERABLE S Performing Organization Address City/State/[place] [address] (ABNORMAL) POCT Glucose (09/29/2018 10:50 AM EDT) athologist Signature POC Glucose 206 (H) 65 - 199 [facility] Comment: Supplemental ranges: <140 mg/dL before meals <180 mg/dL all other times of the day Specimen Anatomical Collection Method Collection Time Receive d Time (Source) Location / / Volume Laterality Blood specimen 09/29/2018 10:50 9 (specimen) AM EDT 10:50 AM EDT Crow Galvin Jr., MD POINT OF CARE TEST ORDERABLE S Performing Organization Address City/State/[place] [address] (ABNORMAL) POCT Glucose (09/29/2018 8:46 AM EDT) athologist Signature POC Glucose 260 (H) 65 - 199 [place] mg/dL [facility] Comment: Supplemental ranges: <140 mg/dL before meals <180 mg/dL all other times of the day Specimen Anatomical Collection Method Collection Time Receive d Time (Source) Location / / Volume Laterality Blood specimen 09/29/2018 8:46 AM 019 8:46 (specimen) EDT AM EDT Crow Galvin Jr., MD POINT OF CARE TEST ORDERABLE S Performing Organization Address City/State/[place] [address] Blood culture (09/29/2018 8:24 AM EDT) [facility] Method Time Signature Blood Culture No growth [place] at 5 days. [facility] Specimen Anatomical Collection Method Collection Time Receive d Time (Source) Location / / Volume Laterality Blood specimen 09/29/2018 8:24 AM 019 9:20 (specimen) EDT AM EDT Comment: RH Resulting Agency Comment Spec In Lab Crow Galvin Jr., MD MICROBIOLOGY - BLOOD ORDERAB LES Performing Organization Address City/[facility]/ZIP Code Phon e Number [address] Blood culture (09/29/2018 8:19 AM EDT) [facility] Method Time Signature Blood Culture No growth [place] ANDERSON at 5 days. [facility] Specimen Anatomical Collection Method Collection Time Receive d Time (Source) Location / / Volume Laterality Blood specimen 09/29/2018 8:19 AM 019 9:19 (specimen) EDT AM EDT Comment: LH Resulting Agency Comment Spec In Lab Crow Galvin Jr., MD MICROBIOLOGY - BLOOD ORDERAB LES Performing Organization Address City/[facility]/ZIP Code Phon e Number [address] (ABNORMAL) Differential, Automated (09/29/2018 5:50 AM EDT) [facility] Method Time Signature Neutrophils % 67.4 % [facility] LABORATORY Neutr Abs (ANC) 6.38 (H) 1.70 - [facility] 6.10 [facility] x10(3)/[facility] LABORATORY Lymphocytes % 21.4 % [facility] LABORATORY Lymphocytes Abs 2.0 0.9 - 3.2 [facility] x10(3)/[facility] LABORATORY Monocytes % 8.6 % [facility] LABORATORY Monocyte Abs 0.8 0.3 - 0.9 [facility] x10(3)/[facility] LABORATORY Eosinophils % 2.0 % [facility] LABORATORY Eosinophils Abs 0.2 0.0 - 0.4 [facility] x10(3)/[facility] LABORATORY Basophils % 0.1 % [facility] LABORATORY Basophils Abs 0.0 0.0 - 0.1 [facility] x10(3)/[facility] LABORATORY Immature Gran % 0.50 % [facility]ORY Comment: Immature granulocytes(IG's)percentage an d absolute count will include metamyelocytes, myelocytes, and promyelo cytes. Blood smears from CBCs yielding IG's will be scanned manually for concor dance. If this scan disagrees with the automated IG or if promyelocytes are not ed, a manual differential will be performed. Irina Gran Abs 0.05 (H) 0.00 - 0.04 x10(3)/[facility] LABORATORY Specimen Anatomical Collection Method Collection Time Receive d Time (Source) Location / / Volume Laterality Blood specimen 09/29/2018 5:50 AM 019 6:02 (specimen) EDT AM EDT Resulting Agency Comment Spec In Lab Leon Razo MD HEMATOLOGY ORDERABLES Performing Organization Address City/State/[place] [address] (ABNORMAL) Hemogram (09/29/2018 5:50 AM EDT) Analysis Performed At Patho logist Time Signature WBC 9.5 4.0 - 9.5 [facility] x10(3)/[facility] LABORATORY RBC 2.76 (L) 4.00 - [facility] 5.21 [facility] x10(6)/[facility] LABORATORY Hemoglobin 8.5 (L) 11.7 - [facility] 15.5 gm/dL [facility] Hematocrit 26.9 (L) 35.7 - [facility] 45.8 % [facility] MCV 97.5 (H) 82.6 - [facility] 94.4 fL [facility] MCH 30.8 27.1 - [facility] 32.0 pg [facility] MCHC 31.6 (L) 31.7 - [facility] 35.0 gm/dL [facility] Platelets 148 145 - 357 [facility] x10(3)/[facility] LABORATORY RDWSD 45.6 37.0 - [facility] 46.[address] [facility] LABORATORY RDWCV 12.8 11.5 - [facility] 14.1 % [facility]ORAT[facility] MPV 10.9 7.6 - 12.9 [facility] LABORATORY nRBC % Auto 0.0 % [facility] LABORATORY nRBC Abs Auto 0.000 0.000 - [facility] 0.000 [facility] x10(3)/[facility] LABORATORY Specimen Anatomical Collection Method Collection Time Receive d Time (Source) Location / / Volume Laterality Blood specimen 09/29/2018 5:50 AM 019 6:02 (specimen) EDT AM EDT Resulting Agency Comment Spec In Lab Leon Razo MD HEMATOLOGY ORDERABLES Performing Organization Address City/State/ZIP Code Phon e Number [place] [id number] Basic Metabolic Panel (non-fasting) (09/29/2018 5:50 AM EDT) athologist Signature Glucose Lvl 187 65 - 199 [facility] mg/dL [facility] Comment: Diabetes: >=200 mg/dL plus symp toms BUN 13 8 - 18 mg/dL [facility] LABORATORY Creatinine 0.86 0.70 - 1.20 mg/dL [facility] LABORATORY Sodium 138 135 - 145 mmol/L [facility] Potassium 3.7 3.5 - 5.0 mmol/L [facility] Comment: Please note: ??Patients with WBC >100,00 0 may have falsely elevated Potassium levels. ??For accurate Potassium quantif ication in these patients send serum separator tube (gold top) for subsequent determinations. ??Contact the Clinical Chemistry Laboratory if there are any qu estions. Chloride 105 98 - 107 mmol/L [facility]ORATORY CO2 23 22 - 31 mmol/L [facility]OR[facility] Anion Gap 10 5 - 15 mmol/L [facility] LABORATORY Calcium 10.5 8.5 - 10.5 mg/dL [facility] Estimated GFR 74 >=60 mL/min/1.73 m?? [facility] Comment: The eGFR was calculated using the CKD-EP I equation. As with all creatinine based estimates of kidney function, eGFR values calculated with the CKD-EPI equation are not accurate in patients wi th acute kidney failure, extremes of body mass or the acutely ill. [email or web address] eGFR 86 >=60 mL/min/1.73 m?? [facility] Comment: The eGFR was calculated using the CKD-EP I equation. As with all creatinine based estimates of kidney function, eGFR values calculated with the CKD-EPI equation are not accurate in patients wi th acute kidney failure, extremes of body mass or the acutely ill. [email or web address] Specimen Anatomical Collection Method Collection Time Receive d Time (Source) Location / / Volume Laterality Blood specimen 09/29/2018 5:50 AM 019 6:02 (specimen) EDT AM EDT Resulting Agency Comment Spec In Lab Crow Galvin Jr., MD CHEMISTRY ORDERABLES Performing Organization Address City/State/ZIP Code Phon e Number [address] (ABNORMAL) POCT Glucose (09/29/2018 3:57 AM EDT) P athologist Signature POC Glucose 209 (H) 65 - 199 [facility] Comment: Supplemental ranges: <140 mg/dL before meals <180 mg/dL all other times of the day Specimen Anatomical Collection Method Collection Time Receive d Time (Source) Location / / Volume Laterality Blood specimen 09/29/2018 3:57 AM 019 3:57 (specimen) EDT AM EDT Crow Galvin Jr., MD POINT OF CARE TEST ORDERABLE S Performing Organization Address City/State/ZIP Code Phon e Number [address] (ABNORMAL) POCT Glucose (09/29/2018 12:27 AM EST) P athologist Signature POC Glucose 219 (H) 65 - 199 [facility] mg/dL [facility] Comment: Supplemental ranges: <140 mg/dL before meals <180 mg/dL all other times of the day Specimen Anatomical Collection Method Collection Time Receive d Time (Source) Location / / Volume Laterality Blood specimen 09/29/2018 12:27 9 (specimen) AM EST 12:27 AM EST Crow Galvin Jr., MD POINT OF CARE TEST ORDERABLE S Performing Organization Address City/State/[place] [address] (ABNORMAL) POCT Glucose (09/28/2018 8:35 PM EST) athologist Signature POC Glucose 253 (H) 65 - 199 [place] mg/dL [facility] Comment: Supplemental ranges: <140 mg/dL before meals <180 mg/dL all other times of the day Specimen Anatomical Collection Method Collection Time Receive d Time (Source) Location / / Volume Laterality Blood specimen 09/28/2018 8:35 PM 019 8:35 (specimen) EST PM EST Crow Galvin Jr., MD POINT OF CARE TEST ORDERDANTE S Performing Organization Address City/State/[place] [address] POCT Glucose (09/28/2018 4:28 PM EST) athologist Signature POC Glucose 120 65 - 199 [place] mg/dL [facility] Comment: Supplemental ranges: <140 mg/dL before meals <180 mg/dL all other times of the day Specimen Anatomical Collection Method Collection Time Receive d Time (Source) Location / / Volume Laterality Blood specimen 09/28/2018 4:28 PM 019 4:28 (specimen) EST PM EST Crow Galvin Jr., MD POINT OF CARE TEST ORDERABLE S Performing Organization Address City/State/[place] [address] POCT Glucose (09/28/2018 1:52 PM EST) athologist Signature POC Glucose 189 65 - 199 [place] mg/dL [facility] Comment: Supplemental ranges: <140 mg/dL before meals <180 mg/dL all other times of the day Specimen Anatomical Collection Method Collection Time Receive d Time (Source) Location / / Volume Laterality Blood specimen 09/28/2018 1:52 PM 019 1:52 (specimen) EST PM EST Crow Galvin Jr., MD POINT OF CARE TEST ORDERABLE S Performing Organization Address City/[facility]/ZIP Code Phon e Number [address] (ABNORMAL) POCT Glucose (09/28/2018 11:49 AM EST) athologist Signature POC Glucose 256 (H) 65 - 199 [facility] mg/dL [facility] Comment: Supplemental ranges: <140 mg/dL before meals <180 mg/dL all other times of the day Specimen Anatomical Collection Method Collection Time Receive d Time (Source) Location / / Volume Laterality Blood specimen 09/28/2018 11:49 9 (specimen) AM EST 11:49 AM EST Crow Galvin Jr., MD POINT OF CARE TEST ORDERABLE S Performing Organization Address City/State/[place] [address] XR Chest PA & Lateral (Generic) (09/28/2018 10:37 AM EST) Anatomical Region Laterality Modality Chest N/A Digital Radiography Specimen (Source) Anatomical Location Collection Method / Collectio n Time Received Time / Laterality Volume Impressions 09/28/2018 12:59 PM EST No acute disease. Thank you for letting us participate in the care of this patient. For questions regarding this report, please contact e number below. ? Narrative 09/28/2018 12:59 PM EST EXAMINATION: XR CHEST PA AND LATERAL (GENERIC) CLINICAL HISTORY: Febrile, O2 requiremen t, s/p right PCNL TECHNIQUE: Chest 2 views COMPARISON: None FINDINGS: Normal heart size. Clear lungs. Mediasti num and diaphragms are normal. There is extensive degenerative changes seen in t he thoracic spine. Procedure Note Hima Muñoz MD - 09/28/2018Format ting of this note might be different from the original. EXAMINATION: XR CHEST PA AND LATERAL (GE NERIC) CLINICAL HISTORY: Febrile, O2 requiremen t, s/p right PCNL TECHNIQUE: Chest 2 views COMPARISON: None FINDINGS: Normal heart size. Clear lungs. Mediasti num and diaphragms are normal. There is extensive degenerative changes seen in t he thoracic spine. IMPRESSION No acute disease. Thank you for letting us participate in the care of this patient. For questions regarding this report, please contact e number below. Crow Galvin Jr., MD IMG DX ORDERABLES (ABNORMAL) POCT Glucose (09/28/2018 8:05 AM EST) athologist Signature POC Glucose 212 (H) 65 - 199 [facility] mg/dL [facility] Comment: Supplemental ranges: <140 mg/dL before meals <180 mg/dL all other times of the day Specimen Anatomical Collection Method Collection Time Receive d Time (Source) Location / / Volume Laterality Blood specimen 09/28/2018 8:05 AM 019 8:05 (specimen) EST AM EST Crow Galvin Jr., MD POINT OF CARE TEST ORDERABLE S Performing Organization Address City/State/[place] [address] (ABNORMAL) Differential, Automated (09/28/2018 2:01 AM EST) [facility] gist Method Time Signature Neutrophils % 75.6 % [facility] LABORATORY Neutr Abs (ANC) 8.83 (H) 1.70 - [facility] 6.10 [facility] x10(3)/[facility] LABORATORY Lymphocytes % 14.0 % [facility] LABORATORY Lymphocytes Abs 1.6 0.9 - 3.2 [facility] x10(3)/[facility] LABORATORY Monocytes % 9.2 % [facility] LABORATORY Monocyte Abs 1.1 (H) 0.3 - 0.9 [facility] x10(3)/[facility] LABORATORY Eosinophils % 0.6 % [facility] LABORATORY Eosinophils Abs 0.1 0.0 - 0.4 [facility] x10(3)/[facility] LABORATORY Basophils % 0.2 % [facility] LABORATORY Basophils Abs 0.0 0.0 - 0.1 [facility] x10(3)/[facility] LABORATORY Immature Gran % 0.40 % [facility] Comment: Immature granulocytes(IG's)percentage an d absolute count will include metamyelocytes, myelocytes, and promyelo cytes. Blood smears from CBCs yielding IG's will be scanned manually for concor dance. If this scan disagrees with the automated IG or if promyelocytes are not ed, a manual differential will be performed. Irina Gran Abs 0.05 (H) 0.00 - 0.04 x10(3)/[facility] LABORATORY Specimen Anatomical Collection Method Collection Time Receive d Time (Source) Location / / Volume Laterality Blood specimen 09/28/2018 2:01 AM 019 2:15 (specimen) EST AM EST Resulting Agency Comment Spec In Lab Marquis Christopher MD HEMATOLOGY ORDERABLES Performing Organization Address City/State/[place] [address] (ABNORMAL) Hemogram (09/28/2018 2:01 AM EST) Analysis Performed At Patho logist Time Signature WBC 11.7 (H) 4.0 - 9.5 [facility] x10(3)/[facility] LABORATORY RBC 2.99 (L) 4.00 - [facility] 5.21 [facility] x10(6)/[facility] LABORATORY Hemoglobin 9.1 (L) 11.7 - [place] 15.5 gm/dL [facility]ORATORY Hematocrit 28.3 (L) 35.7 - [facility] 45.8 % [facility]ORATORY MCV 94.6 (H) 82.6 - [facility] [address] [facility] LABORATORY MCH 30.4 27.1 - [place] 32.0 pg [facility]AT[facility] MCHC 32.2 31.7 - [place] 35.0 gm/dL [facility] Platelets 147 145 - 357 [facility] x10(3)/[facility] LABORATORY RDWSD 44.6 37.0 - [place] [address] [facility] LABORATORY RDWCV 12.8 11.5 - [facility] 14.1 % [facility]AT[facility] MPV 10.3 7.6 - 12.9 [facility] LABORATORY nRBC % Auto 0.0 % [facility] LABORATORY nRBC Abs Auto 0.000 0.000 - [facility] x10(3)/[facility] LABORATORY Specimen Anatomical Collection Method Collection Time Receive d Time (Source) Location / / Volume Laterality Blood specimen 09/28/2018 2:01 AM 019 2:15 (specimen) EST AM EST Resulting Agency Comment Spec In Lab Marquis Christopher MD HEMATOLOGY ORDERABLES Performing Organization Address City/State/[place] [address] (ABNORMAL) Basic Metabolic Panel (non-fasting) (09/28/2018 2:01 AM EST) P athologist Signature Glucose Lvl 248 (H) 65 - 199 [facility] Comment: Diabetes: >=200 mg/dL plus symp toms BUN 19 (H) 8 - 18 mg/dL [facility]ORATORY Creatinine 1.06 0.70 - 1.20 mg/dL [facility] LABOR[facility]ORY Sodium 134 (L) 135 - 145 mmol/L [facility]OR[facility] Potassium 3.9 3.5 - 5.0 mmol/L [facility] Comment: Please note: ??Patients with WBC >100,00 0 may have falsely elevated Potassium levels. ??For accurate Potassium quantif ication in these patients send serum separator tube (gold top) for subsequent determinations. ??Contact the Clinical Chemistry Laboratory if there are any qu estions. Chloride 103 98 - 107 mmol/L [facility]ORATORY CO2 20 (L) 22 - 31 mmol/L [facility]OR[facility]ORY Anion Gap 11 5 - 15 mmol/L [facility] LABORATORY Calcium 9.6 8.5 - 10.5 mg/dL [facility]OR[facility] Estimated GFR 58 (L) >=60 mL/min/1.73 m?? [facility] Comment: The eGFR was calculated using the CKD-EP I equation. As with all creatinine based estimates of kidney function, eGFR values calculated with the CKD-EPI equation are not accurate in patients wi th acute kidney failure, extremes of body mass or the acutely ill. [email or web address] eGFR 67 >=60 mL/min/1.73 m?? [facility] Comment: The eGFR was calculated using the CKD-EP I equation. As with all creatinine based estimates of kidney function, eGFR values calculated with the CKD-EPI equation are not accurate in patients wi th acute kidney failure, extremes of body mass or the acutely ill. [email or web address] Specimen Anatomical Collection Method Collection Time Receive d Time (Source) Location / / Volume Laterality Blood specimen 09/28/2018 2:01 AM 019 2:15 (specimen) EST AM EST Resulting Agency Comment Spec In Lab Crow Galvin Jr., MD CHEMISTRY ORDERABLES Performing Organization Address City/State/[place] [address] (ABNORMAL) POCT Glucose (09/27/2018 7:56 PM EST) P athologist Signature POC Glucose 228 (H) 65 - 199 [facility] mg/dL [facility] Comment: Supplemental ranges: <140 mg/dL before meals <180 mg/dL all other times of the day Specimen Anatomical Collection Method Collection Time Receive d Time (Source) Location / / Volume Laterality Blood specimen 09/27/2018 7:56 PM 019 7:56 (specimen) EST PM EST Crow Galvin Jr., MD POINT OF CARE TEST ORDERABLE S Performing Organization Address City/[facility]/[place] [address] Urine Hold (09/27/2018 4:33 PM EST) P athologist Signature Urine Hold Sample in [facility]. [facility] Specimen Anatomical Collection Method Collection Time Receive d Time (Source) Location / / Volume Laterality Urine specimen Urine / Unknown 09/27/2018 4:33 PM 0302/2019 5:06 (specimen) EST PM EST Comment: MUST BE COLLECTED PRIOR TO GIVI NG THE CEFTRIAXONE Linda Rodriguez MD URINE ORDERABLES Performing Organization Address City/[facility]/[place] [address] (ABNORMAL) Urine culture Indwelling Catheter Urine (09/27/2018 4:33 PM EST) Patholo gist Method Time Signature Urine Culture 1,000-9,000 [facility] cfu/ml Gram [facility] Rods (A) LABORATORY Organism Gram [facility] () [facility] Specimen (Source) Anatomical Collection Method Collection Time Re ceived Time Location / / Volume Laterality Urine specimen 09/27/2018 4:33 09/27/2018 5:23 obtained via PM EST PM EST indwelling urinary catheter (specimen) Comment: MUST BE COLLECTED PRIOR TO GIVI NG THE CEFTRIAXONE Resulting Agency Comment Spec In Lab Crow Galvin Jr., MD MICROBIOLOGY - GENERAL ORDER ELINA Performing Organization Address City/[facility]/[place] [address] (ABNORMAL) Blood culture (09/27/2018 4:32 PM EST) Patholo gist Method Time Signature Blood Culture Proteus mirabilis isolated HAILEY Isolate saved. If future testing is required, contact the Microbiology [place] Desktop Analyst. [facility] Gram Stain Growth detected in anaerobic bottle. HAILEY Anaerobic Gram Negative Rods seen [facility] Results called to and read back by Varun Rivera in [facility] ??09/28/18 09:36:24 [facility] Organism Proteus HAILEY mirabilis (A) [facility] Organism Gram Negative HAILEY Rods (A) [facility] Specimen Anatomical Collection Method Collection Time Receive d Time (Source) Location / / Volume Laterality Blood specimen 09/27/2018 4:32 PM 019 5:08 (specimen) EST PM EST Resulting Agency Comment Spec In Lab Organism Antibiotic Method Susceptibility Proteus mirabilis Amikacin MICROSCAN METHOD Sensitive Proteus mirabilis Ampicillin MICROSCAN METHOD Resistant Proteus mirabilis Ampicillin + Sulbactam MICROSCAN METHOD Interm ediate Proteus mirabilis Aztreonam MICROSCAN METHOD Sensitive Proteus mirabilis Cefazolin MICROSCAN METHOD Intermediate Proteus mirabilis Cefepime MICROSCAN METHOD <=4: Sensitiv e Proteus mirabilis Ceftazidime MICROSCAN METHOD <=1: Sensitiv e Proteus mirabilis Ceftriaxone MICROSCAN METHOD Sensitive Proteus mirabilis Cefuroxime MICROSCAN METHOD Sensitive Proteus mirabilis Ciprofloxacin MICROSCAN METHOD Resistant Proteus mirabilis Gentamicin MICROSCAN METHOD Resistant Proteus mirabilis Levofloxacin MICROSCAN METHOD Resistant Proteus mirabilis Meropenem MICROSCAN METHOD <=1: Sensitiv e Proteus mirabilis Piperacillin/Tazobactam MICROSCAN METHOD <=16: Sensitive Proteus mirabilis Tetracycline MICROSCAN METHOD Resistant Proteus mirabilis Tobramycin MICROSCAN METHOD Intermediate Proteus mirabilis Trimethoprim/Sulfa MICROSCAN METHOD Resistant Crow Galvin Jr., MD MICROBIOLOGY - BLOOD ORDERAB LES Performing Organization Address City/State/[place] [address] Blood culture (09/27/2018 4:32 PM EST) [facility] gist Method Time Signature Blood Culture No growth HAILEY ANDERSON at 5 days. [facility] Specimen Anatomical Collection Method Collection Time Receive d Time (Source) Location / / Volume Laterality Blood specimen 09/27/2018 4:32 PM /02/21 019 5:08 (specimen) EST PM EST Resulting Agency Comment Spec In Lab Crow Galvin Jr., MD MICROBIOLOGY - BLOOD ORDERAB LES Performing Organization Address City/State/[place] [address] POCT Glucose (09/27/2018 3:55 PM EST) athologist Signature POC Glucose 193 65 - 199 [place] mg/dL [facility] Comment: Supplemental ranges: <140 mg/dL before meals <180 mg/dL all other times of the day Specimen Anatomical Collection Method Collection Time Receive d Time (Source) Location / / Volume Laterality Blood specimen 09/27/2018 3:55 PM 019 3:55 (specimen) EST PM EST Crow Galvin Jr., MD POINT OF CARE TEST ORDERABLE S Performing Organization Address City/State/[place] [address] POCT Glucose (09/27/2018 11:19 AM EST) athologist Signature POC Glucose 183 65 - 199 [place] mg/dL [facility] Comment: Supplemental ranges: <140 mg/dL before meals <180 mg/dL all other times of the day Specimen Anatomical Collection Method Collection Time Receive d Time (Source) Location / / Volume Laterality Blood specimen 09/27/2018 11:19 9 (specimen) AM EST 11:19 AM EST Crow Galvin Jr., MD POINT OF CARE TEST ORDERABLE S Performing Organization Address City/State/[place] [address] (ABNORMAL) POCT Glucose (09/27/2018 7:25 AM EST) athologist Signature POC Glucose 231 (H) 65 - 199 [place] mg/dL [facility] Comment: Supplemental ranges: <140 mg/dL before meals <180 mg/dL all other times of the day Specimen Anatomical Collection Method Collection Time Receive d Time (Source) Location / / Volume Laterality Blood specimen 09/27/2018 7:25 AM 019 7:25 (specimen) EST AM EST Corw Galvin Jr., MD POINT OF CARE TEST ORDERABLE S Performing Organization Address City/State/ZIP Code Phon e Number [place] [id number] LAB[address]ORY Drive CT Abdomen & Pelvis wo Contrast (09/27/2018 5:07 AM EST) Anatomical Region Laterality Modality Abdomen, Pelvis Computed Tomography Specimen (Source) Anatomical Location Collection Method / Collectio n Time Received Time / Laterality Volume Impressions 09/27/2018 5:17 AM EST 1. ??Postoperative changes of the right kidney without retained stone. 2. ??Unchanged 1.9 cm nonobstructing beverley culus in the left consistent. 3. ??Left abdominal wall hernia containi ng small bowel without incarceration. Thank you for letting us participate in the care of this patient. For questions regarding this report, please contact e number below. ? Narrative 09/27/2018 5:17 AM EST EXAMINATION: ??CT ABDOMEN AND PELVIS WO CONTRAST CLINICAL HISTORY: ??POD#1 right PCNL. ?r esidual stone TECHNIQUE: Helical CT of the abdomen and pelvis was performed ??without intravenous contrast. Sagittal and coron al reformats were performed by the technologist at a separate workstation.. COMPARISON: ??CT abdomen dated 8 FINDINGS: Lung bases: ??Atelectasis noted at the l anna bases bilaterally. Liver: ??No lesion is seen in the visual ized liver. Bile ducts: ??Nondilated Gallbladder: ??Surgically absent Pancreas: ??Within normal limits Spleen: ??The visualized spleen is withi n normal limits Adrenals: ??Within normal limits Kidneys: ?? Right: 2 drains are seen through the rig ht flank terminating just outside the renal parenchyma. Double-J stents then c ontinued from the drains. The previously seen calculus is no longer visualized on the right. Postoperative inflammatory stranding is present around the right ki dney. The bladder is decompressed. Again seen is a 1.9 cm nonobstructive stone in the left collecting system. Bowel: Normal caliber. No adjacent infla mmatory changes. ??No wall thickening Lymph Nodes: ??Subcentimeter lymph nodes are seen along the aortocaval levels. Peritoneum: No ascites or free air, no f luid collection Vasculature: Atherosclerosis is seen of the infrarenal abdominal aorta Abdominal wall: There is a 8.3 cm defect at the left abdominal wall which contains loops of small bowel. There is no bowel wall thickening or dilation to suggest incarceration. Reproductive organs: The uterus is surgi leslie absent Bladder: The bladder is decompressed evangelist und a Zheng catheter. Bones: Degenerative changes are seen of the bilateral hips and throughout the lumbar spine. Subchondral sclerosis and cyst formation is present at the left hip. Procedure Note Felicia Mari MD - 09/27/2018Formatt ing of this note might be different from the original. EXAMINATION: CT ABDOMEN AND PELVIS WO CO NTRAST CLINICAL HISTORY: POD#1 right PCNL. ?res idual stone TECHNIQUE: Helical CT of the abdomen and pelvis was performed without intravenous contrast. Sagittal and coron al reformats were performed by the technologist at a separate workstation.. COMPARISON: CT abdomen dated 07/22/2018 FINDINGS: Lung bases: Atelectasis noted at the jeff g bases bilaterally. Liver: No lesion is seen in the visualiz ed liver. Bile ducts: Nondilated Gallbladder: Surgically absent Pancreas: Within normal limits Spleen: The visualized spleen is within normal limits Adrenals: Within normal limits Kidneys: Right: 2 drains are seen through the rig ht flank terminating just outside the renal parenchyma. Double-J stents then c ontinued from the drains. The previously seen calculus is no longer visualized on the right. Postoperative inflammatory stranding is present around the right ki dney. The bladder is decompressed. Again seen is a 1.9 cm nonobstructive stone in the left collecting system. Bowel: Normal caliber. No adjacent infla mmatory changes. No wall thickening Lymph Nodes: Subcentimeter lymph nodes a re seen along the aortocaval levels. Peritoneum: No ascites or free air, no f luid collection Vasculature: Atherosclerosis is seen of the infrarenal abdominal aorta Abdominal wall: There is a 8.3 cm defect at the left abdominal wall which contains loops of small bowel. There is no bowel wall thickening or dilation to suggest incarceration. Reproductive organs: The uterus is surgi leslie absent Bladder: The bladder is decompressed evangelist und a Zheng catheter. Bones: Degenerative changes are seen of the bilateral hips and throughout the lumbar spine. Subchondral sclerosis and cyst formation is present at the left hip. IMPRESSION 1. Postoperative changes of the right ki dney without retained stone. 2. Unchanged 1.9 cm nonobstructing calcu macrina in the left consistent. 3. Left abdominal wall hernia containing small bowel without incarceration. Thank you for letting us participate in the care of this patient. For questions regarding this report, please contact e number below. Crow Galvin Jr., MD IMG CT ORDERABLES (ABNORMAL) POCT Glucose (09/27/2018 3:49 AM EST) P athologist Signature POC Glucose 229 (H) 65 - 199 [facility] mg/dL [facility] Comment: Supplemental ranges: <140 mg/dL before meals <180 mg/dL all other times of the day Specimen Anatomical Collection Method Collection Time Receive d Time (Source) Location / / Volume Laterality Blood specimen 09/27/2018 3:49 AM 019 3:49 (specimen) EST AM EST Crow Galvin Jr., MD POINT OF CARE TEST ORDERABLE S Performing Organization Address City/State/[place] [address] (ABNORMAL) Differential, Automated (09/27/2018 1:49 AM EST) [facility] gist Method Time Signature Neutrophils % 89.9 % [facility] Neutr Abs (ANC) 17.95 (H) 1.70 - [facility] 6.10 [facility] x10(3)/[facility] L LABORATORY Lymphocytes % 4.8 % [facility] Lymphocytes Abs 1.0 0.9 - 3.2 [facility] x10(3)/[facility] LABORATORY Monocytes % 4.3 % [facility] Monocyte Abs 0.9 0.3 - 0.9 [facility] x10(3)/[facility] LABORATORY Eosinophils % 0.1 % [facility] Eosinophils Abs 0.0 0.0 - 0.4 [facility] x10(3)/[facility] LABORATORY Basophils % 0.1 % [facility] Basophils Abs 0.0 0.0 - 0.1 [facility] x10(3)/[facility] LABORATORY Immature Gran % 0.80 % [facility] Comment: Immature granulocytes(IG's)percentage an d absolute count will include metamyelocytes, myelocytes, and promyelo cytes. Blood smears from CBCs yielding IG's will be scanned manually for concor dance. If this scan disagrees with the automated IG or if promyelocytes are not ed, a manual differential will be performed. Irina Gran Abs 0.16 (H) 0.00 - 0.04 x10(3)/[facility] LABORATORY Specimen Anatomical Collection Method Collection Time Receive d Time (Source) Location / / Volume Laterality Blood specimen 09/27/2018 1:49 AM 019 2:54 (specimen) EST AM EST Resulting Agency Comment Spec In Lab Linda Rodriguez MD HEMATOLOGY ORDERABLES Performing Organization Address City/State/[place] [address] (ABNORMAL) Hemogram (09/27/2018 1:49 AM EST) Analysis Performed At Patho logist Time Signature WBC 20.0 (H) 4.0 - 9.5 [facility] x10(3)/[facility] LABORATORY RBC 3.28 (L) 4.00 - [facility] 5.21 [facility] x10(6)/[facility] LABORATORY Hemoglobin 10.1 (L) 11.7 - [facility] 15.5 gm/dL [facility] Hematocrit 32.0 (L) 35.7 - [place] 45.8 % [facility] MCV 97.6 (H) 82.6 - [place] [address] [facility] LABORATORY MCH 30.8 27.1 - [place] BEANCOCK 32.0 pg [facility] MCHC 31.6 (L) 31.7 - [place]ANC[place] 35.0 gm/dL [facility] Platelets 200 145 - 357 [facility] x10(3)/[facility] LABORATORY RDWSD 46.9 (H) 37.0 - [place] [address] [facility] LABORATORY RDWCV 13.1 11.5 - [facility] MONICA 14.1 % [facility] MPV 10.5 7.6 - 12.9 [facility] LABORATORY nRBC % Auto 0.0 % [facility] nRBC Abs Auto 0.000 0.000 - [facility] 0.000 [facility] x10(3)/[facility] LABORATORY Specimen Anatomical Collection Method Collection Time Receive d Time (Source) Location / / Volume Laterality Blood specimen 09/27/2018 1:49 AM 019 2:54 (specimen) EST AM EST Resulting Agency Comment Spec In Lab Linda Rodriguez MD HEMATOLOGY ORDERABLES Performing Organization Address City/[facility] [place] [address] PTH (09/27/2018 1:49 AM EST) athologist Signature PTH 49 15 - 65 [facility]mL [facility] Specimen Anatomical Collection Method Collection Time Receive d Time (Source) Location / / Volume Laterality Blood specimen 09/27/2018 1:49 AM 019 2:54 (specimen) EST AM EST Resulting Agency Comment Spec In Lab Crow Galvin Jr., MD CHEMISTRY ORDERABLES Performing Organization Address City/[facility] [place] [address] (ABNORMAL) Basic Metabolic Panel (non-fasting) (09/27/2018 1:49 AM EST) athologist [facility] Glucose Lvl 206 (H) 65 - 199 [facility] mg/dL [facility] Comment: Diabetes: >=200 mg/dL plus symp toms BUN 15 8 - 18 mg/dL [facility] Creatinine 1.58 (H) 0.70 - 1.20 mg/dL [facility] Sodium 134 (L) 135 - 145 mmol/L [facility] Potassium 4.0 3.5 - 5.0 mmol/L [facility] Comment: Please note: ??Patients with WBC >100,00 0 may have falsely elevated Potassium levels. ??For accurate Potassium quantif ication in these patients send serum separator tube (gold top) for subsequent determinations. ??Contact the Clinical Chemistry Laboratory if there are any qu estions. Chloride 100 98 - 107 mmol/L [facility] CO2 20 (L) 22 - 31 mmol/L [facility] Anion Gap 14 5 - 15 mmol/L [facility] Calcium 9.7 8.5 - 10.5 mg/dL [facility] Estimated GFR 36 (L) >=60 mL/min/1.73 m?? [facility] Comment: The eGFR was calculated using the CKD-EP I equation. As with all creatinine based estimates of kidney function, eGFR values calculated with the CKD-EPI equation are not accurate in patients wi th acute kidney failure, extremes of body mass or the acutely ill. [email or web address] eGFR 41 (L) >=60 mL/min/1.73 m?? [facility] Comment: The eGFR was calculated using the CKD-EP I equation. As with all creatinine based estimates of kidney function, eGFR values calculated with the CKD-EPI equation are not accurate in patients wi th acute kidney failure, extremes of body mass or the acutely ill. [email or web address] Specimen Anatomical Collection Method Collection Time Receive d Time (Source) Location / / Volume Laterality Blood specimen 09/27/2018 1:49 AM 019 2:54 (specimen) EST AM EST Resulting Agency Comment Spec In Lab Crow Galvin Jr., MD CHEMISTRY ORDERABLES Performing Organization Address City/[facility]/ZIP [facility] Phon e Number [address] (ABNORMAL) POCT Glucose (09/26/2018 11:35 PM EST) athologist Signature POC Glucose 204 (H) 65 - 199 [facility] mg/dL [facility] Comment: Supplemental ranges: <140 mg/dL before meals <180 mg/dL all other times of the day Specimen Anatomical Collection Method Collection Time Receive d Time (Source) Location / / Volume Laterality Blood specimen 09/26/2018 11:35 9 (specimen) PM EST 11:35 PM EST Crow Galvin Jr., MD POINT OF CARE TEST ORDERABLE S Performing Organization Address [facility] Phon e Number [address] EKG 12 Lead (09/26/2018 7:33 PM EST) Component Value Ref Range Test Analysis Performed Pathologis t Method Time At Signature Ventricular rate 102 BPM MUSE SYSTEM Atrial Rate 102 BPM MUSE SYSTEM P-R Interval 154 ms MUSE SYSTEM QRS Duration 134 ms MUSE SYSTEM Q-T Interval 366 ms MUSE SYSTEM QTC Calculated 477 ms MUSE SYSTEM (Bezet) Calculated P Gravel Switch 73 degrees MUSE SYSTEM Calculated R Gravel Switch 1 degrees MUSE SYSTEM Calculated T Gravel Switch 69 degrees MUSE SYSTEM INTERPRETATION Sinus tachycardia MUSE SY STEM Left bundle branch block Abnormal ECG When compared with ECG of 28-AUG-2018 10:04, No significant change was found Confirmed by MD Karri, Corby ([id number]) on 09/27/2018 8:30:39 A M Specimen Anatomical Collection Method Collection Time Receive d Time (Source) Location / / Volume Laterality 09/26/2018 7:33 PM 9 8:30 EST AM EST Crow Galvin Jr., MD ECG ORDERABLES Performing Organization Address [facility] Phon e Number MUSE SYSTEM (ABNORMAL) Differential, Automated (09/26/2018 7:15 PM EST) Patholo gist Method Time Signature Neutrophils % 81.3 % [facility] Neutr Abs (ANC) 5.96 1.70 - [facility] 6.10 [facility] x10(3)/[facility] LABORATORY Lymphocytes % 15.4 % [facility]ORATORY Lymphocytes Abs 1.1 0.9 - 3.2 [facility] x10(3)/[facility] LABORATORY Monocytes % 1.6 % [facility]ORY Monocyte Abs 0.1 (L) 0.3 - 0.9 [facility] x10(3)/[facility] LABORATORY Eosinophils % 0.4 % [facility]ORY Eosinophils Abs 0.0 0.0 - 0.4 [facility] x10(3)/[facility] LABORATORY Basophils % 0.3 % [facility] Basophils Abs 0.0 0.0 - 0.1 [facility] x10(3)/[facility] LABORATORY Immature Gran % 1.00 % [facility] Comment: Immature granulocytes(IG's)percentage an d absolute count will include metamyelocytes, myelocytes, and promyelo cytes. Blood smears from CBCs yielding IG's will be scanned manually for concor dance. If this scan disagrees with the automated IG or if promyelocytes are not ed, a manual differential will be performed. Irina Gran Abs 0.07 (H) 0.00 - 0.04 x10(3)/[facility] LABORATORY Specimen Anatomical Collection Method Collection Time Receive d Time (Source) Location / / Volume Laterality Blood specimen 09/26/2018 7:15 PM 019 7:24 (specimen) EST PM EST Resulting Agency Comment Spec In Lab Linda Rodriguez MD HEMATOLOGY ORDERABLES Performing Organization Address City/State/[place] [address] (ABNORMAL) Hemogram (09/26/2018 7:15 PM EST) Analysis Performed At Patho logist Time Signature WBC 7.3 4.0 - 9.5 [facility] x10(3)/[facility] LABORATORY RBC 4.39 4.00 - [facility] 5.21 [facility] x10(6)/[facility] LABORATORY Hemoglobin 13.3 11.7 - [facility] 15.5 gm/dL [facility] Hematocrit 41.9 35.7 - [place] 45.8 % [facility] MCV 95.4 (H) 82.6 - [place] 94.4 [facility] LABORATORY MCH 30.3 27.1 - [place] 32.0 pg [facility] MCHC 31.7 31.7 - [place] ANDERSON 35.0 gm/dL [facility] Platelets 247 145 - 357 [facility] x10(3)/[facility] LABORATORY RDWSD 44.7 37.0 - [place] AND[place] [address] [facility] LABORATORY RDWCV 12.8 11.5 - [place] 14.1 % [facility] MPV 10.0 7.6 - 12.9 [facility] LABORATORY nRBC % Auto 0.0 % [facility]OR[facility]ORY nRBC Abs Auto 0.000 0.000 - [facility] MONICA 0.000 [facility] x10(3)/[facility] LABORATORY Specimen Anatomical Collection Method Collection Time Receive d Time (Source) Location / / Volume Laterality Blood specimen 09/26/2018 7:15 PM 019 7:24 (specimen) EST PM EST Resulting Agency Comment Spec In Lab Linda Rodriguez MD HEMATOLOGY ORDERABLES Performing Organization Address City/State/[place] [address] (ABNORMAL) Basic Metabolic Panel (non-fasting) (09/26/2018 7:15 PM EST) P athologist Signature Glucose Lvl 166 65 - 199 [facility] Comment: Diabetes: >=200 mg/dL plus symp toms BUN 11 8 - 18 mg/dL [facility] Creatinine 0.88 0.70 - 1.20 mg/dL [facility] Sodium 137 135 - 145 mmol/L [facility] Potassium 4.6 3.5 - 5.0 mmol/L [facility] Comment: Please note: ??Patients with WBC >100,00 0 may have falsely elevated Potassium levels. ??For accurate Potassium quantif ication in these patients send serum separator tube (gold top) for subsequent determinations. ??Contact the Clinical Chemistry Laboratory if there are any qu estions. Chloride 102 98 - 107 mmol/L [facility] CO2 18 (L) 22 - 31 mmol/L [facility] [facility] Anion Gap 17 (H) 5 - 15 mmol/L [facility] Calcium 10.5 8.5 - 10.5 mg/dL [facility] Estimated GFR 72 >=60 mL/min/1.73 m?? [facility] Comment: The eGFR was calculated using the CKD-EP I equation. As with all creatinine based estimates of kidney function, eGFR values calculated with the CKD-EPI equation are not accurate in patients wi th acute kidney failure, extremes of body mass or the acutely ill. [email or web address] eGFR 84 >=60 mL/min/1.73 m?? [facility] Comment: The eGFR was calculated using the CKD-EP I equation. As with all creatinine based estimates of kidney function, eGFR values calculated with the CKD-EPI equation are not accurate in patients wi th acute kidney failure, extremes of body mass or the acutely ill. [email or web address] Specimen Anatomical Collection Method Collection Time Receive d Time (Source) Location / / Volume Laterality Blood specimen 09/26/2018 7:15 PM 019 7:24 (specimen) EST PM EST Resulting Agency Comment Spec In Lab Crow Galvin Jr., MD CHEMISTRY ORDERABLES Performing Organization Address City/State/[place] [address] POCT Glucose (09/26/2018 7:02 PM EST) P athologist Signature POC Glucose 162 65 - 199 [facility] mg/dL [facility] Comment: Supplemental ranges: <140 mg/dL before meals <180 mg/dL all other times of the day Specimen Anatomical Collection Method Collection Time Receive d Time (Source) Location / / Volume Laterality Blood specimen 09/26/2018 7:02 PM 019 7:02 (specimen) EST PM EST Crow Galvin Jr., MD POINT OF CARE TEST ORDERABLE S Performing Organization Address City/[facility]/ZIP Code Phon e Number [address] XR Fluoro No Rad <1Hr - OR Use (09/26/2018 6:30 PM EST) Specimen (Source) Anatomical Location Collection Method / Collectio n Time Received Time / Laterality Volume Narrative DH RAD - 09/26/2018 6:30 PM EST This order does not need a radiologist i nterpretation. ?? Crow Galvin Jr., MD IMG FLUORO ORDERABLES Performing Organization Address City/[facility]/ZIP Code Phon e Number RAD RAD [place], [place] Anaerobic Culture (09/26/2018 5:36 PM EST) [facility] gist Method Time Signature Anaerobic No anaerobic [facility] Culture organisms [facility] Specimen Anatomical Collection Method Collection Time Receive d Time (Source) Location / / Volume Laterality Specimen from 09/26/2018 5:36 PM 09/27/19 19 7:40 kidney EST PM EST (specimen) Comment: RIGHT URETERAL STONE Resulting Agency Comment Spec In Lab Crow Galvin Jr., MD MICROBIOLOGY - GENERAL ORDER ELINA Performing Organization Address City/[facility]/[place] [address] (ABNORMAL) Tissue culture (09/26/2018 5:36 PM EST) Component Value Ref Test Analysis Performed At Patholo gist Range Method Time Signature Tissue Rare Proteus mirabilis [place] Culture Few Pseudomonas aeruginosa [facility] Gram Stain No Neutrophils seen. [place] No microorganisms seen. [facility] OCK () [facility] Organism Proteus mirabilis [place] (A) [facility] Organism Pseudomonas [place] aeruginosa (A) [facility] Specimen Anatomical Collection Method Collection Time Receive d Time (Source) Location / / Volume Laterality Specimen from 09/26/2018 5:36 PM 09/27/19 19 7:40 kidney EST PM EST (specimen) Comment: RIGHT URETERAL STONE Resulting Agency Comment Spec In Lab Organism Antibiotic Method Susceptibility Proteus mirabilis Amikacin MICROSCAN METHOD Sensitive Proteus mirabilis Ampicillin MICROSCAN METHOD Resistant Proteus mirabilis Ampicillin + Sulbactam MICROSCAN METHOD Interm ediate Proteus mirabilis Aztreonam MICROSCAN METHOD Sensitive Proteus mirabilis Cefazolin MICROSCAN METHOD Intermediate Proteus mirabilis Cefepime MICROSCAN METHOD <=4: Sensitiv e Proteus mirabilis Ceftazidime MICROSCAN METHOD <=1: Sensitiv e Proteus mirabilis Ceftriaxone MICROSCAN METHOD Sensitive Proteus mirabilis Cefuroxime MICROSCAN METHOD Sensitive Proteus mirabilis Ciprofloxacin MICROSCAN METHOD Resistant Proteus mirabilis Gentamicin MICROSCAN METHOD Resistant Proteus mirabilis Levofloxacin MICROSCAN METHOD Resistant Proteus mirabilis Meropenem MICROSCAN METHOD <=1: Sensitiv e Proteus mirabilis Piperacillin/Tazobactam MICROSCAN METHOD <=16: Sensitive Proteus mirabilis Tetracycline MICROSCAN METHOD Resistant Proteus mirabilis Tobramycin MICROSCAN METHOD Intermediate Proteus mirabilis Trimethoprim/Sulfa MICROSCAN METHOD Resistant Pseudomonas aeruginosa Amikacin MICROSCAN METHOD Sensitiv e Pseudomonas aeruginosa Aztreonam MICROSCAN METHOD Intermed iate Pseudomonas aeruginosa Cefepime MICROSCAN METHOD 8: Sensi tive Pseudomonas aeruginosa Ceftazidime MICROSCAN METHOD 4: Sensi tive Pseudomonas aeruginosa Ciprofloxacin MICROSCAN METHOD Resistan t Pseudomonas aeruginosa Gentamicin MICROSCAN METHOD Sensitiv e Pseudomonas aeruginosa Levofloxacin MICROSCAN METHOD Resistan t Pseudomonas aeruginosa Meropenem MICROSCAN METHOD <=1: Sen sitive Pseudomonas aeruginosa Piperacillin/Tazobactam MICROSCAN METHOD <=16: Sensitive Pseudomonas aeruginosa Tobramycin MICROSCAN METHOD Sensitiv e Crow Galvin Jr., MD MICROBIOLOGY - GENERAL ORDER ELINA Performing Organization Address City/State/[place] [address] Kidney Stone Analysis (09/26/2018 5:36 PM EST) Component Value Ref Test Analysis Performed At Patholo gist Range Method Time Signature Kidney Stone [place] Analysis Test ? Result ?Flag ??Unit ??RefValue [facility] Kidney Stone Analysis [facility] ??Source: ?[facility] ??1st Constituent: ?60% Calcium phosphate (apatite) ??2nd Constituent: ?20% Magnesium ammonium phosphate (struvite) ??3rd Constituent: ?10% Calcium oxalate dihydrate ??Comment ?10% Calcium carbonate ? ADDITIONAL INFORMATION ------ ?This test was developed and its performance characteri stics ?determined by [facility] in a manner consistent with CLIA ?requirements. This test has not been cleared or approv ed by ?the U.S. Food and Drug Administration. ?Test Performed by: ?[facility] ?[address] [place] [address] Specimen Anatomical Collection Method Collection Time Receive d Time (Source) Location / / Volume Laterality Calculus 09/26/2018 5:36 PM 9 specimen EST 11:16 AM EST (specimen) Resulting Agency Comment Spec In Lab Crow Galvin Jr., MD BODY FLUIDS AND STOOLS ORDER ELINA Performing Organization Address City/State/ZIP Code Ph[place] [address] (ABNORMAL) Urine culture Cystostomy Urine (09/26/2018 3:22 PM EST) Component Value Ref Test Analysis Performed At [facility] Range Method Time Signature Urine 10,000-49,000 cfu/ml Proteus mirabilis [place] Culture 10,000-49,000 cfu/ml Pseudomonas aeruginosa [place] Susceptibilities previously reported [facility] Organism Proteus mirabilis [place] (A) [facility] Organism Pseudomonas [place] aeruginosa (A) [facility] Specimen Anatomical Collection Method Collection Time Receive d Time (Source) Location / / Volume Laterality Urine specimen 09/26/2018 3:22 PM 019 3:46 (specimen) EST PM EST Comment: UPPER POLE RENAL URINE Resulting Agency Comment Spec In Lab Crow Galvin Jr., MD MICROBIOLOGY - GENERAL ORDER ELINA Performing Organization Address City/State/[place] [address] (ABNORMAL) Urine culture Cystoscopic Urine (09/26/2018 3:22 PM EST) [facility] Method Time Signature Urine Culture 1,000-9,000 cfu/ml Proteus mirabilis [place] 1,000-9,000 cfu/ml Pseudomonas aeruginosa [facility] Organism Proteus [place] mirabilis (A) [facility] Organism Pseudomonas [place] aeruginosa (A) [facility] Specimen Anatomical Collection Method Collection Time Receive d Time (Source) Location / / Volume Laterality Urine specimen 09/26/2018 3:22 PM 019 3:46 (specimen) EST PM EST Resulting Agency Comment Spec In Lab Organism Antibiotic Method Susceptibility Proteus mirabilis Amikacin MICROSCAN METHOD Sensitive Proteus mirabilis Ampicillin MICROSCAN METHOD Resistant Proteus mirabilis Ampicillin + Sulbactam MICROSCAN METHOD Interm ediate Proteus mirabilis Aztreonam MICROSCAN METHOD Sensitive Proteus mirabilis Cefazolin MICROSCAN METHOD Intermediate Proteus mirabilis Cefepime MICROSCAN METHOD <=4: Sensitiv e Proteus mirabilis Ceftazidime MICROSCAN METHOD <=1: Sensitiv e Proteus mirabilis Ceftriaxone MICROSCAN METHOD Sensitive Proteus mirabilis Cefuroxime MICROSCAN METHOD Sensitive Proteus mirabilis Ciprofloxacin MICROSCAN METHOD Resistant Proteus mirabilis Gentamicin MICROSCAN METHOD Resistant Proteus mirabilis Levofloxacin MICROSCAN METHOD Resistant Proteus mirabilis Meropenem MICROSCAN METHOD <=1: Sensitiv e Proteus mirabilis Nitrofurantoin MICROSCAN METHOD Resistant Proteus mirabilis Piperacillin/Tazobactam MICROSCAN METHOD <=16: Sensitive Proteus mirabilis Tetracycline MICROSCAN METHOD Resistant Proteus mirabilis Tobramycin MICROSCAN METHOD Resistant Proteus mirabilis Trimethoprim/Sulfa MICROSCAN METHOD Resistant Pseudomonas aeruginosa Amikacin MICROSCAN METHOD Sensitiv e Pseudomonas aeruginosa Aztreonam MICROSCAN METHOD Sensitiv e Pseudomonas aeruginosa Cefepime MICROSCAN METHOD 8: Sensi tive Pseudomonas aeruginosa Ceftazidime MICROSCAN METHOD <=1: Sen sitive Pseudomonas aeruginosa Ciprofloxacin MICROSCAN METHOD Resistan t Pseudomonas aeruginosa Gentamicin MICROSCAN METHOD Sensitiv e Pseudomonas aeruginosa Levofloxacin MICROSCAN METHOD Intermed iate Pseudomonas aeruginosa Meropenem MICROSCAN METHOD <=1: Sen sitive Pseudomonas aeruginosa Piperacillin/Tazobactam MICROSCAN METHOD <=16: Sensitive Pseudomonas aeruginosa Tobramycin MICROSCAN METHOD Sensitiv e Crow Galvin Jr., MD MICROBIOLOGY - GENERAL ORDER ELINA Performing Organization Address City/State/[place] [address] (ABNORMAL) POCT Glucose (09/26/2018 12:22 PM EST) athologist Signature POC Glucose 203 (H) 65 - 199 [facility] mg/dL [facility] Comment: Supplemental ranges: <140 mg/dL before meals <180 mg/dL all other times of the day Specimen Anatomical Collection Method Collection Time Receive d Time (Source) Location / / Volume Laterality Blood specimen 09/26/2018 12:22 9 (specimen) PM EST 12:22 PM EST Crow Galvin Jr., MD POINT OF CARE TEST ORDERABLE S Performing Organization Address City/[facility]/[place] [address] documented in this encounter Visit Diagnoses Diagnosis Tachycardia Tachycardia, unspecified Recurrent UTI (urinary tract infection) Urinary tract infection, site not specif ied Bacteremia due to Gram-negative bacteria Bacteremia Nephrolithiasis Calculus of kidney documented in this encounter Administered Medications Inactive Administered Medications - up to 3 most recent administrations Medication Order MAR Action Action Date Dose Rate Site acetaminophen (OFIRMEV) Given 09/26/2018 7:29 PM 1,000 mg 400 mL/hr injection 1,000 mg EST 1,000 mg, Intravenous, at 400 mL/hr, ONCE, 1 dose, On Arin 09/26/18 at 1930, Maximum dose of acetaminophen is 4000 mg from all sources in 24 hours., Routine acetaminophen (TYLENOL) tablet 1,000 mg Given 09/29/2018 6:52 AM EDT 1,000 mg 1,000 mg, Oral, EVERY 6 HOURS SCHEDULED, First dose (after last modification) on 09/28/18 at 0000, Until Discontinued, Maximum dose of acetaminophen is 4000 mg from all sources in 24 hours., Routine Given 09/28/2018 11:45 PM EST 1,000 mg Given 09/28/2018 6:13 PM EST 1,000 mg acetaminophen (TYLENOL) tablet 650 mg Given 09/27/2018 5:33 PM EST 650 mg 650 mg, Oral, EVERY 6 HOURS SCHEDULED, First dose on Arin 09/26/18 at 1915, Until Discontinued, Maximum dose of acetaminophen is 4000 mg from all sources in 24 hours., Routine Given 09/27/2018 11:58 AM EST 650 mg Given 09/27/2018 5:21 AM EST 650 mg acetaminophen (TYLENOL) tablet 650 mg Given 09/30/2018 8:43 AM EDT 650 mg 650 mg, Oral, EVERY 6 HOURS PRN, Starting on 09/29/18 at 1220, Until 09/30/18 at 1129, Pain, Fever, Maximum dose of acetaminophen is 4000 mg from all sources in 24 hours., Routine Given 09/29/2018 8:47 PM EDT 650 mg acyclovir (ZOVIRAX) 5 % ointment 1 each Given 10/01/2018 1:56 PM EDT 1 each 1 each, Topical (Top), EVERY 3 HOURS, First dose on Sun10/01/18 at 1400, Until Discontinued atorvastatin (LIPITOR) tablet 10 mg Given 09/30/2018 9:30 PM EDT 10 mg 10 mg, Oral, DAILY, First dose on Sun09/27/18 at 0900, Until Discontinued, Routine Given 09/29/2018 8:47 PM EDT 10 mg Given 09/28/2018 8:35 PM EST 10 mg carvedilol (COREG) tablet 3.125 mg Given 10/01/2018 8:41 AM EDT 3.125 mg 3.125 mg, Oral, 2 TIMES DAILY, First dose on Sun09/26/18 at 2145, Until Discontinued, Routine Given 09/30/2018 9:30 PM EDT 3.125 mg Given 09/30/2018 8:35 AM EDT 3.125 mg ceFEPime (MAXIPIME) 2g vial attach to New Bag 10/01/2018 12:59 PM EDT 2 g 200 mL/hr sodium chloride 0.9% 100 mL Mini-Bag Plus 2 g, Intravenous, EVERY 8 HOURS, First dose on Sun09/28/18 at 1300, Until Discontinued, Administer over 30 Minutes, Indication for (Active or Suspected): Urinary Tract/Pyelonephritis New Bag 10/01/2018 5:10 AM EDT 2 g 200 mL/hr New Bag 09/30/2018 9:28 PM EDT 2 g 200 mL/hr cefTRIAXone (ROCEPHIN) 2 g vial attach New Bag 09/27/2018 5:34 PM EST 2 g 100 mL/hr to sodium chloride 0.9% 50 mL Mini-Bag Plus 2 g, Intravenous, EVERY 24 HOURS, First dose on Sun09/27/18 at 1615, Until Discontinued, Administer over 30 Minutes, Indication for (Active or Suspected): Urinary Tract/Pyelonephritis dextrose 50% intravenous solution 25-50 mL 25-50 mL (12.5-25 g), Intravenous, EVERY 1 HOUR PRN, S tarting on Sun09/29/18 at 0011, Until Tu10/01/18 at 1847, Low blood sugar, F or BG 50-70 [...] the duration of the active insulin., Routine diphenhydrAMINE (BENADRYL) capsule 50 mg 50 mg, Oral, EVERY 6 HOURS PRN, Starting on 09/28/18 at 1234, Until Sun10/01/18 at 1847, Itching, Routine docusate sodium (COLACE) capsule 100 mg Given 10/01/2018 8:40 AM EDT 100 mg 100 mg, Oral, 2 TIMES DAILY, First dose on Arin 09/26/18 at 2145, Until Discontinued, Routine Given 09/30/2018 9:29 PM EDT 100 mg Given 09/30/2018 9:00 AM EDT 100 mg gabapentin (NEURONTIN) capsule 600 mg Given 09/26/2018 1:21 PM EST 600 mg 600 mg, Oral, ONCE, 1 dose, On Arin 09/26/18 at 1330, Routine gabapentin (NEURONTIN) capsule 600 mg Given 10/01/2018 3:03 PM EDT 600 mg 600 mg, Oral, 3 TIMES DAILY, First dose on Arin 09/26/18 at 2145, Until Discontinued, Routine Given 10/01/2018 8:40 AM EDT 600 mg Given 09/30/2018 9:30 PM EDT 600 mg glipiZIDE (GLUCOTROL) tablet 10 mg Given 10/01/2018 8:41 AM EDT 10 mg 10 mg, Oral, 2 TIMES DAILY BEFORE MEALS, First dose on Sun09/27/18 at 0730, Until Discontinued, Administer 30 minutes before the meal. Consider holding dose if patient is not eating. , Routine Given 09/30/2018 5:12 PM EDT 10 mg Given 09/30/2018 8:35 AM EDT 10 mg glucagon (human recombinant) injection S olR 1 mg 1 mg, Intramuscular, EVERY 1 HOUR PRN, S tarting on 09/29/18 at 0011, Until Sun10/01/18 at 1847, Low blood sugar, For BG 50-70 mg/d [...] Buccal, EVERY 30 MIN PRN, Starting on Sun 09/20 at 0011, Until Tu10/01/18 at 1847, Low blood sugar, For BG 50-70 mg/d [...] weight of tube = 37.5 grams., Routine glycerin (adult) suppository 1 supposito ry 1 suppository, Rectal, DAILY PRN, 1 dose , Starting on 09/29/18 at 0730, Until Sun10/01/18 at 1847, Constipation, Routine HYDROcodone-acetaminophen (NORCO) 5-325 mg Given 10/01 12:55 PM EDT 1 tablet per tablet 1 tablet 1 tablet, Oral, EVERY 6 HOURS PRN, Starting on 09/30/18 at 1230, Until Sun10/01/18 at 1847, Pain, Maximum dose of acetaminophen is 4000 mg from all sources in 24 hours. , Routine Given 09/30/2018 9:45 PM EDT 1 tablet Given 09/30/2018 3:15 PM EDT 1 tablet HYDROmorphone (DILAUDID) injection 0.4-0 .6 mg Given 09/26/2018 7:50 PM EST 0.4 mg 0.4-0.6 mg, Intravenous, EVERY 5 MIN PRN, Starting on Arin 09/26/18 at 1825, Until Arin 09/26/18 at 2045, Pain, Give 0.4 mg every 5 minutes PRN for mild to moderate pain (1-5) Give 0.6 mg every 5 minutes PRN for moderate to severe pain (6-10). Hold for respiratory rate less than 10 per minute. Maximum dose 4 mg over one hour. If multiple pain medications are ordered, start with hydromorphone or morphine and use fentanyl for breakthrough pain., PACU Recovery, Routine Given 09/26/2018 7:22 PM EST 0.4 mg Given 09/26/2018 7:08 PM EST 0.4 mg ibuprofen (ADVIL;MOTRIN) tablet 600 mg Given 10/01/2018 12:55 PM EDT 600 mg 600 mg, Oral, EVERY 6 HOURS PRN, Starting on 09/30/18 at 1128, Until Sun10/01/18 at 1847, Pain, Administer orally with milk or food to minimize GI irritation. Maximum dose of 3200 mg from all sources in 24 hours, Routine Given 10/01/2018 5:10 AM EDT 600 mg insulin lispro (HumaLOG) VIAL injection 1-4 Given 02/2019 11:58 AM EST 2 Units Units 1-4 Units, Subcutaneous, EVERY 4 HOURS SCHEDULED, First dose on Arin 09/26/18 at 2000, Until Discontinued, CORRECTION BOLUS Sensitive to insulin [...] specifically told to do so., Routine Given 09/27/2018 8:24 AM EST 3 Units Given 09/27/2018 3:58 AM EST 3 Units insulin lispro (HumaLOG) VIAL injection 1-4 Given 03/2019 11:58 AM EST 4 Units Units 1-4 Units, Subcutaneous, 3 TIMES DAILY BEFORE MEALS, First dose on Sun09/27/18 at 1630, Until Discontinued, CORRECTION BOLUS Sensitive [...] specifically told to do so., Routine Given 09/28/2018 9:20 AM EST 3 Units Given 09/27/2018 5:33 PM EST 2 Units insulin lispro (HumaLOG) VIAL injection 2-8 Given 09/20 8:41 AM EDT 2 Units Units 2-8 Units, Subcutaneous, EVERY 4 HOURS SCHEDULED, First dose on Sun09/29/18 at 0030, Until Discontinued, CORRECTION BOLUS Moderate BG 140 [...] specifically told to do so., Routine Given 10/01/2018 4:59 AM EDT 4 Units Given 09/30/2018 11:44 PM EDT 2 Units lactated Ringers 1,000 mL IV bolus New Bag 09/26/2018 11:53 PM EST 333.3 mL/hr at 333.3 mL/hr, Intravenous, ONCE, 1 dose, On Sun09/26/18 at 2300 lactated Ringers 1,000 mL IV bolus New Bag 09/27/2018 3:39 AM EST 333.3 mL/hr at 333.3 mL/hr, Intravenous, ONCE, 1 dose, On Sun09/27/18 at 0345 lactated Ringers 1,000 mL IV bolus New Bag 09/27/2018 6:31 AM EST 1000 mL/hr at 1,000 mL/hr, Intravenous, ONCE, 1 dose, On Sun09/27/18 at 0630 lactobacillus with pectin 1 capsule Given 10/01/2018 8:40 AM EDT 1 capsule 1 capsule, Oral, DAILY, First dose on Sun09/27/18 at 0900, Until Discontinued, Routine Given 09/30/2018 9:00 AM EDT 1 capsule Given 09/29/2018 8:38 AM EDT 1 capsule lisinopril (PRINIVIL;ZESTRIL) tablet 5 m g Given 10/01/2018 8:40 AM EDT 5 mg 5 mg, Oral, DAILY, First dose on Sun09/30/18 at 0900, Until Discontinued, Routine Given 09/30/2018 9:00 AM EDT 5 mg loratadine (CLARITIN) tablet 5 mg Given 09/30/2018 4:53 AM EDT 5 mg 5 mg, Oral, DAILY PRN, Starting on Sun09/26/18 at 2116, Until Sun10/01/18 at 1847, allergies, Routine ondansetron (ZOFRAN) injection 4 mg 4 mg, Intravenous, EVERY 8 HOURS PRN, Starting on Sun09/26/18 at 2116, Until Sun10/01/18 at 1847, Nausea, May repeat time s one in 30 minutes if ineffective. If multiple antiemetics are ordered, use ondansetron firs t., Recovery (Recovery-Hospital Unit) ondansetron (ZOFRAN) tablet 4 mg Given 09/27/2018 3:17 AM EST 4 mg 4 mg, Oral, EVERY 8 HOURS PRN, Starting on Arin 09/26/18 at 2116, Until 10/01/18 at 1847, Nausea, Vomiting, If multiple antiemetics are ordered, use ondansetron first. PO Preferred. If patient unable to take PO, may give IV if ordered. May repeat times one in 45 minutes if ineffective., Recovery (Recovery-Hospital Unit), Routine oxyCODONE (ROXICODONE) immediate release tablet Given 09/30/2018 8:43 AM EDT 5 mg 5-10 mg 5-10 mg, Oral, EVERY 4 HOURS PRN, Starting on Arin 09/26/18 at 1856, Until 09/30/18 at 1129, Pain, moderate pain (4-6), Initial dose 5mg. If pain control not adequate in 60 minutes, give additional 5mg, Routine Given 09/29/2018 11:53 PM EDT 5 mg Given 09/29/2018 10:14 PM EDT 5 mg polyethylene glycol (MIRALAX) packet 17 g Given 10/01/2018 8:41 AM EDT 17 g 17 g, Oral, DAILY, First dose on 09/30/18 at 0900, Until Discontinued, Routine Given 09/30/2018 8:31 AM EDT 17 g sodium chloride 0.9 % flush 5 mL Given 10/01/2018 9:00 AM EDT 5 mLs 5 mL, Intravenous, 2 TIMES DAILY, First dose on Arin 09/26/18 at 2145, Until Discontinued, Recovery (Recovery-Hospital Unit), Routine Given 09/30/2018 9:30 PM EDT 5 mLs Given 09/29/2018 8:57 PM EDT 5 mLs sodium chloride 0.9% infusion New Bag 09/27/2018 5:33 PM EST 1,000 mLs 100 mL/hr 1,000 mL, at 100 mL/hr, Intravenous, CONTINUOUS, Starting on Arin 09/26/18 at 1915, Until 09/28/18 at 1634, Recovery (Recovery-Hospital Unit) New Bag 09/27/2018 2:10 AM EST 1,000 mLs 100 mL/hr New Bag 09/26/2018 7:21 PM EST 1,000 mLs 100 mL/hr spironolactone (ALDACTONE) tablet 25 mg Given 10/01/2018 8:41 AM EDT 25 mg 25 mg, Oral, DAILY, First dose on Sun09/27/18 at 0900, Until Discontinued, Routine Given 09/30/2018 8:35 AM EDT 25 mg Given 09/29/2018 8:37 AM EDT 25 mg tiotropium (SPIRIVA) inhalation capsule with Given 06/2019 8:41 AM EDT 18 mcg device 18 mcg 18 mcg, Inhalation, DAILY, First dose on Sun09/27/18 at 0900, Until Discontinued Given 09/30/2018 8:37 AM EDT 18 mcg Given 09/29/2018 8:40 AM EDT 18 mcg documented in this encounter Active and Recently Administered Medications Due to Daylight Saving Time, this section may contain times in both EST and EDT. Scheduled Medication Order 09/29/2018 09/30/2018 10/01/2018 acetaminophen (TYLENOL) tablet 1,000 mg (CANCELED) 065 2 (Given - Provider: Thu Navarrete RN)1200 (Not Given - Provider: Viky Gill RN - Reason: Medication Discontinued) 1,000 mg, Oral, EVERY 6 HOURS SCHEDULED, First dose on Sun09/28/18 at 0000, Until Discontinued, Maximum dose of acetaminophen is 4000 mg from all sources in 24 hours., Routine acyclovir (ZOVIRAX) 5 % ointment 1 each 1356 (Given - Provider: Lisa Peguero, BRYAN) 1 each, Topical (Top), EVERY 3 HOURS, First dose on Sun10/01/18 at 1400 atorvastatin (LIPITOR) tablet 10 mg 2046 (Given - Prov ider: Thu Navarrete RN) 2129 (Given - Provider: Amanda Gustafson RN) 10 mg, Oral, DAILY, First dose on 03/10 at 0900, Until Discontinued, Routine carvedilol (COREG) tablet 3.125 mg 0839 (Given - Provi elise: Ryann Easley, BRYAN)2049 (Given - Provider: Thu Navarrete, BRYAN) 0835 (Given - Provider: Viky Zaidi, BRYAN)2129 (Given - Provider: Amanda Gustafson, RN) 0841 (Given - Provider: Kishore sebastian RN) 3.125 mg, Oral, 2 TIMES DAILY, First dos e on Arin 09/26/18 at 2145, Until Discontinued, Routine ceFEPime (MAXIPIME) 2g vial attach to sodium chloride 0.9% 100 mL Mini-Bag Plus 0420 (New Bag - Provider: Thu Navarrete RN)0450 (Stopped - Provider: Thu Navarrete RN)1247 (New Bag - Provider: Viky Gill RN)1317 (Stopped - Provider: Viky Gill RN) 0448 (New Bag - Provider: Thu Navarrete RN)0518 (Stopped - Provider: Thu Navarrete RN)1300 (New Bag - Provider: Viky Zaidi, BRYAN)1330 (Stopped - Provider: Viky Zaidi, BRYAN) 0510 (New Bag - Provider: Amanda Gustafson, BRYAN)0540 (Stopped - Provider: Amanda Gustafson, BRYAN)1259 (New Bag - Provider: Kishore Mac, BRYAN)1329 (Stopped - Provider: Lisa Peguero RN) 2 g, Intravenous, EVERY 8 HOURS, First d ose on 09/28/18 at 1300, Until Discontinued, Administer over 30 Minutes, Indication for (Active or Suspected): Urinary Tract/Pyelonephritis 2047 (New Bag - Provider: Thu Navarrete RN)2117 (Stopped - Provider: Thu Navarrete RN) 2127 (New Bag - Provider: Amanda Gustafson, BRYAN)2157 (Stopped - Provider: Amanda Gustafson, BRYAN) docusate sodium (COLACE) capsule 100 mg 0837 (Given - Provider: Ryann Easley RN)2046 (Given - Provider: Thu Navarrete RN) 0900 (Given - Provider: Viky Zaidi RN)2129 (Given - Provider: Amanda Gustafson RN) 0840 (Given - Provider: Kishore sebastian RN) 100 mg, Oral, 2 TIMES DAILY, First dose on Sun09/26/18 at 2145, Until Discontinued, Routine gabapentin (NEURONTIN) capsule 600 mg 0837 (Given - Pr ovider: Ryann Easley RN)1506 (Given - Provider: Viky Gill RN)204 (Given - Provider: Thu Navarrete RN) 0834 (Given - Provider: Viky davis RN)1515 (Given - Provider: Viky Zaidi RN)2130 (Given - Provider: Amanda Gustafson RN) 0840 (Given - Provider: Kishore sebastian RN)1503 (Given - Provider: Kishore Mac RN) 600 mg, Oral, 3 TIMES DAILY, First dose on Sun09/26/18 at 2145, Until Discontinued, Routine glipiZIDE (GLUCOTROL) tablet 10 mg 0653 (Given - Provi elise: Thu Navarrete RN)1703 (Given - Provider: Viky Gill RN) 0835 (Given - Provider: Viky Zaidi RN)1712 (Given - Provider: Viky Zaidi RN) 0841 (Given - Provider: Kishore sebastian RN)1630 (Due) 10 mg, Oral, 2 TIMES DAILY BEFORE MEALS, First dose on Sun09/27/18 at 0730, Until Discontinued, Administer 30 minutes before the meal. Consider holding dose if patient is not eating. , Routine insulin lispro (HumaLOG) VIAL injection 2-8 Units(Link ed Group 1) 0132 (Given - Provider: Thu Navarrete RN)0420 (Given - Provider: Thu Navarrete RN)0846 (Given - Provider: Ryann Easley RN)1246 (Given - Provider: Viky Gill RN - Comment: BG 151) 0448 (Given - Provider: Thu Navarrete RN)0830 (Given - Provider: Viky Zaidi RN)1225 (Given - Provider: Viky Zaidi RN)1600 (Not Given - Provider: Viky Zaidi RN - Reason: Order parameters not met) 0459 (Given - Provider: Amanda Gustafson RN)0841 (Given - Provider: Kishore Mac RN)1208 (Not Given - Provider: Kishore Mac RN - Reason: Order parameters not met)1600 (Due) 2-8 Units, Subcutaneous, EVERY 4 HOURS S CHEDULED, First dose on 09/29/18 at 0030, Until Discontinued, CORRECTION BOLUS Moderate BG 140 - 160 Give 2 units BG 161 - 200 Give 4 units BG 201 - 240 Gi 1700 (Given - Provider: Viky Gill RN - Comment: BG 169)2051 (Given - Provider: Thu Navarrete RN)235 (Given - Provider: Thu Navarrete RN) 212 (Given - Provider: Amanda Gustafson, BRYAN)2344 (Given - Provider: Amanda Gustafson RN) ve 6 units BG greater than 240, give 8 u nits and recheck BG in 2 hours. If less than 240 after two hours, give no insulin and resume prior schedule. If BG remains greater than 240, repeat 8 units (no mo re than three times) & call for new basa l insulin orders. DO NOT hold if NPO, unless specifically told to do so., Routine lactobacillus with pectin 1 capsule 0838 (Given - Prov ider: Ryann Easley RN) 0900 (Given - Provider: Viky Zaidi RN) 0840 (Given - Provider: Kishore Mac RN) 1 capsule, Oral, DAILY, First dose on Fr i 09/27/18 at 0900, Until Discontinued, Routine lisinopril (PRINIVIL;ZESTRIL) tablet 5 mg 0900 (Given - Provider: Viky Zaidi RN) 0840 (Given - Provider: Kishore sebastian RN) 5 mg, Oral, DAILY, First dose on 09/20 at 0900, Until Discontinued, Routine polyethylene glycol (MIRALAX) packet 17 g 0831 (Given - Provider: Viky Zaidi RN) 0841 (Given - Provider: Kishore sebastian RN) 17 g, Oral, DAILY, First dose on 09/20 at 0900, Until Discontinued, Routine sodium chloride 0.9 % flush 5 mL 09 (Not Given - Pro vider: Ryann Easley RN - Reason: Order parameters not met)2056 (Given - Provider: Thu Navarrete RN) 0900 (Not Given - Provider: Viky Zaidi RN - Reason: Order parameters not met)2129 (Given - Provider: Amanda Gustafson RN) 0900 (Given - Provider: Kishore Mac RN) 5 mL, Intravenous, 2 TIMES DAILY, First dose on Arin 09/26/18 at 2145, Until Discontinued, Recovery (Recovery-Hospital Unit), Routine spironolactone (ALDACTONE) tablet 25 mg 0837 (Given - Provider: Ryann Easley RN) 0835 (Given - Provider: Viky Zaidi RN) 0841 (Given - Provider: Kishore Mac RN) 25 mg, Oral, DAILY, First dose on 03/10 at 0900, Until Discontinued, Routine tiotropium (SPIRIVA) inhalation capsule with device 18 mcg 0840 (Given - Provider: Ryann Easley RN) 0837 (Given - Provider: Viky davis RN) 0841 (Given - Provider: Kishore sebastian RN) 18 mcg, Inhalation, DAILY, First dose on Sun09/27/18 at 0900, Until Discontinued PRN Medication Order 09/29/2018 09/30/2018 10/01/2018 acetaminophen (TYLENOL) tablet 650 mg (CANCELED) 2046 (Given - Provider: Thu Navarrete RN) 0843 (Given - Provider: Vkiy davis RN) 650 mg, Oral, EVERY 6 HOURS PRN, Startin g 09/29/18 at 1220, Until 09/30/18 at 1129, Pain, Fever, Maximum dose of acetaminophen is 4000 mg from all sources in 24 hours., Routine albuterol (PROVENTIL) nebulizer solution 2.5 mg 2.5 mg, Nebulization, EVERY 4 HOURS PRN, Starting Arin 09/26/18 at 2116, Until Sun10/01/18 at 1847, Wheezing, Shortness of Breath, Routine bisacodyl (DULCOLAX) suppository 10 mg 10 mg, Rectal, DAILY PRN, Starting Arin at 2116, Until Sun10/01/18 at 1847, Constipation, Administer if needed per patient's routine or if no bowel movement within 48 hours to achieve: (1) One bow el movement at least every 48 hours, AND (2) Without straining. - If multiple PRN bowel medications ordered, start with magnesium hydroxide, then bisacodyl. - Multiple medications may be given concomitantly for constipation., Routine dextrose 50% intravenous solution 25-50 mL(Linked Group 2) 25-50 mL (12.5-25 g), Intravenous, EVERY 1 HOUR PRN, Starting 09/29/18 at 0011, Until Sun10/01/18 at 1847, Low blood sugar, For BG 50-70 mg/dL: [...] the duration of the active insulin., Routine diphenhydrAMINE (BENADRYL) capsule 50 mg 50 mg, Oral, EVERY 6 HOURS PRN, Starting 09/28/18 at 1234, Until Tu10/01/18 at 1847, Itching, Routine glucagon (human recombinant) injection SolR 1 mg(Linked Group 2) 1 mg, Intramuscular, EVERY 1 HOUR PRN, S tarting 09/29/18 at 0011, Until Sun10/01/18 at 1847, Low blood sugar, For BG 50-70 mg/dL: [...] Buccal, EVERY 30 MIN PRN, Start ing 09/29/18 at 0011, Until Sun10/01/18 at 1847, Low blood sugar, For BG 50-70 mg/dL: [...] weight of tube = 37.5 grams., Routine glycerin (adult) suppository 1 suppository 1 suppository, Rectal, DAILY PRN, 1 dose , Starting 09/29/18 at 0730, Until Sun10/01/18 at 1847, Constipation, Routine HYDROcodone-acetaminophen (NORCO) 5-325 mg per tablet 1 tabl et 1515 (Given - Provider: Viky Zaidi RN)2145 (Given - Provider: Amanda Gustafson RN) 1255 (Given - Provider: Kishore sebastian RN) 1 tablet, Oral, EVERY 6 HOURS PRN, Start ing Sun09/30/18 at 1230, Until Sun10/01/18 at 1847, Pain, Maximum dose of acetaminophen is 4000 mg from all sources in 24 hours. , Routine ibuprofen (ADVIL;MOTRIN) tablet 600 mg 0510 (Given - Provider: Amanda Gustafson RN)1255 (Given - Provider: Kishore Mac RN) 600 mg, Oral, EVERY 6 HOURS PRN, Startin g Sun09/30/18 at 1128, Until Sun10/01/18 at 1847, Pain, Administer orally with milk or food to minimize GI irritation. Maximum dose of 3200 mg from all sources in 24 hours, Routine lidocaine (XYLOCAINE) 10 mg/mL (1 %) injection 3 mg 3 mg (0.3 mL), Subcutaneous, ONCE PRN, 1 dose, Starting Arin 09/26/18 at 2116, Until 10/01/18 at 1847, for discomfort with PIV insertion, Recovery (Recovery-Hospital Unit), Routine loratadine (CLARITIN) tablet 5 mg 0453 ( Given - Provider: Thu Navarrete RN) 5 mg, Oral, DAILY PRN, Starting Arin at 2116, Until 10/01/18 at 1847, allergies, Routine ondansetron (ZOFRAN) injection 4 mg(Linked Group 3) 4 mg, Intravenous, EVERY 8 HOURS PRN, St arting Arin 09/26/18 at 2116, Until 10/01/18 at 1847, Nausea, May repeat times one in 30 minutes if ineffective. If multiple antiemetics are ordered, use ondan setron first., Recovery ([facility]ospital Unit) ondansetron (ZOFRAN) tablet 4 mg(Linked Group 3) 4 mg, Oral, EVERY 8 HOURS PRN, Starting Arin 09/26/18 at 2116, Until 10/01/18 at 1847, Nausea, Vomiting, If multiple antiemetics are ordered, use ondansetron first. PO Preferred. If patient unable to take PO, may give IV if ordered. May repeat times one in 45 minutes if ineffective., Recovery ([facility]ospital Unit), Routine oxyCODONE (ROXICODONE) immediate release tablet 5-10 m g (CANCELED) 0657 (Given - Provider: Thu Navarrete RN)2214 (Given - Provider: Thu Navarrete RN)2353 (Given - Provider: Thu Navarrete RN) 0843 (Given - Provider: Viky Zaidi RN) 5-10 mg, Oral, EVERY 4 HOURS PRN, Starti ng Arin 09/26/18 at 1856, Until 09/30/18 at 1129, Pain, moderate pain (4-6), Initial dose 5mg. If pain control not adequate in 60 minutes, give additional 5mg, Routine sodium chloride 0.9 % flush 5-20 mL 5-20 mL, Intravenous, EVERY 1 MIN PRN, S tarting [facility] 09/26/18 at 2116, Until Sun10/01/18 at 1847, flush, Flush pertains to all indwelling lines. Flush per protocol found in the job aid using the link akshati ded on this medication record., Recovery ([facility]ospital Unit ), Routine Linked Groups Order Group 1: POCT Fingerstick Glucose (CANCELED) Routine, EVERY 4 HOURS, First occurrence on Sun09/29/18 at 0400, Until Specified
Consider choosing EVERY 4 HOURS as frequency for: - Type 1 Diabetes - At least 24 hours after coming off an insu skylar drip - At least 24 hours after admis erinn for DKA - Hypoglycemia unawareness - Patients who are otherwise unstable Select the same frequency for the correction bolus insulin order And insulin lispro (HumaLOG) VIAL injection 2-8 UnitsJump to med 2-8 Units, Subcutaneous, EVERY 4 HOURS S CHEDULED, First dose on Sun09/29/18 at 0030, Until Discontinued
CORRECTION BOLUS Moderate BG 140 - 160&nbsp ; Give 2 units BG 161 - 200 Give 4 units BG 201 - 240 Give 6 units B G greater than 240, give 8 units and rec heck BG in 2 hours. If less than 240 after two hours, give no insulin and resume prior schedule. If BG remains greater than 240, repeat 8 units (no more than thre e times) & call for new basal insulin or ders. DO NOT hold if NPO, unless specifically told to do so.
Routine Group 2: glucose (GLUTOSE) 40% oral gelJump to med 15-30 g, Buccal, EVERY 30 MIN PRN, Start ing [place] 09/29/18 at 0011, Until Sun10/01/18 at 1847, Low blood sugar
For BG 50-70 mg/dL: [...] g), Intravenous, EVERY 1 HOUR PRN, Starting 09/29/18 at 0011, Until 10/01/18 at 1847, Low blood sugar
For BG 50-70 mg/dL: [...] Intramuscular, EVERY 1 HOUR PRN, S tarting 09/29/18 at 0011, Until Sun10/01/18 at 1847, Low blood sugar
For BG 50-70 mg/dL: [...] Oral, EVERY 8 HOURS PRN, Starting Arin 09/26/18 at 2116, Until Sun10/01/18 at 1847, Nausea, Vomiting
If multiple antiemetics are ordered, use ondansetron first. PO Preferred. If patient unable to take PO, may give I V if ordered. May repeat times one in 45 minutes if ineffective.
Recovery (Recovery-Hospital Unit), Routine Or ondansetron (ZOFRAN) injection 4 mgJump to med 4 mg, Intravenous, EVERY 8 HOURS PRN, St arting Arin 09/26/18 at 2116, Until 10/01/18 at 1847, Nausea
May repeat times one in 30 minutes if ineffective. If multiple antiemetics are o rdered, use ondansetron first.
[facility] ([facility] Unit) documented in this encounter Care Teams [place] Seamer Relationship Specialty Start Date End Date Albert Zuleta MD PCP - General Family Medicine 01/17/17 10/26/21 [address] [place] [address] documented as of this encounter
--- OUTSIDE RECORDS SUMMARY | 2022-02-08 01:58 | XMS_ITS | Encounter Summary ---
:1960 Author Organization [facility] [place] [address] Care Team Providers Name Role Phone Albert Zuleta MD Primary Care Provider Encounter Details Date Type Department Care Team Description 09/16/2018 Telephone Urology at [facility] [place] [address] Social History Tobacco Use Types Packs/Day [...] this encounter Miscellaneous Notes Telephone Encounter - La Horvath - 09/16/2018 10:55 AM EST Patient called asking about when her PCNL with Dr. Galvin was going to happen. I said that I had been out since and I was actively searching for time. I let her know that Dr. Galvin is booking outinto October at this point and I was searching for extra time to get her in. I let her know that I waswaiting to hear if I could get OR time from another provider but wouldn't know till Sunday at the. She was very upset and said she needs her stent out now as it has been in too long and it was unacceptable. I apologized that I didn't have a date at this time. She had been scheduled previously but was canceled due to cardiac problems. I am still actively looking for OR time to squeeze her in. Thank you La documented in this encounter Plan of Treatment Upcoming Encounters Date Type Specialty Care Team Description 03/15/2022 Office Visit Neurology Ryann aBrfield APRN [facility] [address] [place], [place] [address] 03/23/2022 Appointment Radiology Hailey Mcclendon MD [facility] [place] [address] 03/23/2022 Laboratory Appointment Lab 03/23/2022 Office Visit Gastroenterology Hailey Mcclendon MD [facility] [place] [address] 05/23/2022 Procedure visit Maxillofacial Surgery Corby Montes MD [facility] [address] [place] [address] documented as of this encounter Visit Diagnoses Not on filedocumented in this encounter Care Teams Mixing Engineer Relationship Specialty Start Date End Date Albert Zuleta MD PCP - General Family Medicine 01/17/17 10/26/[address] [place] [id number] documented as of this encounter
--- OUTSIDE RECORDS SUMMARY | 2022-02-08 01:58 | XMS_ITS | Encounter Summary ---
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 Kendra Prieto MD CARDIAC CATHETERIZATION [facility] [place] [address] [place] [address] [phone] Social History Tobacco Use Types Packs/Day Years [...] Sign Reading Time Taken Comments Blood Pressure 136/71 09/12/2018 11:11 AM EST Pulse 75 09/12/2018 11:11 AM EST Temperature 36.7 ??C (98.1 ??F) 09/12/2018 11:11 AM EST Respiratory Rate 14 09/12/2018 11:11 AM EST Oxygen Saturation 97% 09/12/2018 11:11 AM EST Inhaled Oxygen Concentration - - Weight 137.4 kg (303 lb) 09/12/2018 10:45 AM EST Height 167.6 cm (5' 6) 09/12/2018 10:45 AM EST Body Mass Index 48.91 09/12/2018 10:45 AM EST documented in this encounter Discharge Instructions Discharge InstructionsKeeley Levi RN - 09/12/2018 2:15 PM EST Activity If you are discharged the same day as your procedure, do not drive yourself home. Arrange to have another person drive. You may walk around when you get home, but keep your activity at a minimum until the morning. Do not bend over, strain, or lift heavy objects for 24 hours after the procedure. Do not participatein active sports for 48 hours. You may engage in sexual activity after 48 hours. These restrictions will not apply if the catheter was placed in a blood vessel in your arm. Catheter Insertion Area Care Take the band-aid off the catheter insertion area the morning following the procedure. You may take a shower if you wish. Wash the area with soap and water. Look for signs of infection over the next several days. A little spot of blood at the catheter insertion area is not unusual. A bruise or small lump under the skin is normal; they generally disappear in 3-4 days. For the first several days at home if you cough or sneeze, hold your groin to help prevent bleeding. Expect some mild tenderness over the area where the catheter was inserted. You will notice this after the local anesthetic (numbing medicine) wears off. This should improve during the 24-48 hours afterthe procedure. Take tylenol if needed. Contact your doctor if the discomfort worsens. Problems to Watch For If there is bright red blood flowing from the catheter insertion area: *stop what you are doing and lie down *Hold pressure steadily on the area for 15 minutes *Call for Help *If the bleeding does not stop in 15 minutes call 911 for an ambulance. If there is swelling with black and blue color at the catheter insertion area, there may be bleeding inside. Contact the doctor if there is any increase in size. Look at the insertion site for the first few days at home. Signs of infection are: *redness *Swelling *Yellow, white, green or brown foul smelling drainage. *increased soreness If you think there is an infection, take your temperature. Then call your doctor. The limb on the side where you had your catheterization should look and feel normal in its color, sensation, and temperature. If your leg becomes cool, pale, blue or changing color with numbness and tingling, contact your doctor. If you feel faint or dizzy, lie down with your feet elevated. Have someone call the doctor. If you are alert, drink fluids. How to Deal with Chest pain If you had only the cardiac catheterization, treat any angina or chest discomfort as instructed. Stop what you are doing, and sit or lie down. If prescribed, take nitroglycerin under your tongue. If the angina isn't relieved, take another nitroglycerine in 5 minutes. After another 5 minutes, a third ni troglycerine may be taken. If the angina isn't improved you should call for an ambulance to bring you to the nearest hospital emergency room. If your angina is more frequent or more sever than before, contact your doctor. We usually would not expect to have angina after an angioplasty. If you do get angina, treat it as you did before but also contact your doctor. Return to Work The doctor will usually have told you when to return to work. If you do not perform heavy physical labor, most people can return to work in a few days. Diet Follow your previous diet unless otherwise instructed. Cardiac Risk Factors If you have coronary artery disease, it is important that you help control it by reducing your cardiac risk factors. If you smoke, we urge you to stop now. If you think this is going to be a problem, let us know so that we may help you. We have dieticians who can help you learn about low fat, low cholesterol diet. Cardiac rehabilitation programs can help you set up a regular exercise program. Work with your doctor if you have high blood pressure or sugar diabetes to keep these under control. Medications ____Take your usual medications ____Medication changes: If you are taking medicines prescribed by your doctor, do not take any dkqq-wdd-jygobev medicines orherbal preparations without first discussing this with your doctor or pharmacist. There is the possibility of side effect and interactions when these are combined. Follow up Care Who to Call with Questions or Problems If there are any questions or problems that you think might be related to your cardiac cath or angioplasty, contact the charhouse worker professional bondsman by calling [facility] at . POST ANESTHESIA INSTRUCTIONS Go home, rest, use caution on stairs. Change positions slowly. Do not smoke if you are alone. Diet light to regular as tolerated today. If nausea occurs start with clear liquids and progress slowly. No driving, operating machinery, alcoholic beverages and no important decisions for 24 hours. Monitor IV site for signs and symptoms of infection: increasing redness, swelling, foul drainage, ifoccurs contact M.D. Patients who have had endotrachial tubes (this tube, used by anesthesia department, is passed down your throat after you are asleep, to ensure safe air passage during your operation). A sore throat is normal due to the tube. Cold liquids or soothing lozenges will help ease the discomfort. The generalized muscle aches are due to the medication given to you just before the tube is inserted. As the medication wears off, you may develop muscle soreness, which usually goes away in 12-24 hours. documented in this encounter Medications at Time of Discharge Medication Sig Dispensed Refills Start Date End Date tiotropium (Spiriva) 18 Inhale 1 capsule into 0 0 02/03/2013 mcg Capsule, the lungs. w/Inhalation Device diclofenac (VOLTAREN) 1 Apply topically 4 0 [...] 03/09/2018 (PRINIVIL;ZESTRIL) 5 mg MOUTH DAILY Tablet lactobacillus Take 1 capsule by 0 11/2019 [...] 5-500 mg MOUTH TWICE A DAY Tablet JANUVIA 100 mg Tablet TAKE ONE TABLET BY 1 201709/25/2018 MOUTH EVERY DAY carvedilol (COREG) Take 12.5 mg by mouth 3 201711/20/2019 3.125 mg Tablet 2 times daily. magnesium oxide TAKE ONE TABLET BY 1 03/06/2018 0 03/28/2019 (MAG-OX) 400 mg (241.3 MOUTH TWICE A DAY mg magnesium) Tablet multivitamin 0 10/01/2009 11/06/2018 (THERAGRAN) tablet documented as of this encounter Progress Notes Keeley Levi RN - 09/12/2018 2:27 PM EST 1427- dc instructions reviewed with patient and patients sister. Pt verbalized understanding. Pt denies pain or nausea. Tolerating po. Dressing is CDI to right radial. +csmt. documented in this encounter H&P Notes Clementine Fraire MD - 09/12/2018 11:25 AM EST Images from the original note were not included. Please refer to Dr. Ferrell note from 2/6/19 for full details. Ms. Samayoa presents for elective diagnostic coronary angiography for recent diagnosis of decreased LVEF and ischmia on a nuclear stresstest. Procedure was discussed in detail and informed consent was obtained. Will plan on RRA. Labs reviewed. ASA 3; MP 3 Clementine Fraire MD [facility] Interventional Cardiology Pager [phone] documented in this encounter Plan of Treatment Upcoming Encounters Date Type Specialty Care Team Description 03/15/2022 Office Visit Neurology Ryann Barfield, [facility] [place] [address] 03/23/2022 Appointment Radiology Hailey Mcclendon MD [facility] [address] [place] [address] 03/23/2022 Laboratory Appointment Lab 03/23/2022 Office Visit Gastroenterology Hailey Mcclendon MD [facility] [address] [place] [address] 05/23/2022 Procedure visit Maxillofacial Surgery Coryb Montes MD [facility] [address] [place] [address] documented as of this encounter Procedures Procedure Name Priority Date/Time Associated Diagnosis Comme nts BMP W/FASTING STAT 09/12/2018 10:23 AM Results for this GLUCOSE EST procedure are i n the results section. HEMOGRAM STAT 09/12/2018 10:23 AM Results for this EST procedure are i n the results section. DIFFERENTIAL, STAT 09/12/2018 10:23 AM Results for this AUTOMATED EST procedure are i n the results section. CBC (WITH DIFF) STAT 09/12/2018 10:23 AM EST documented in this encounter Results (ABNORMAL) Differential, Automated (09/12/2018 10:23 AM EST) [facility] Method Time Signature Neutrophils % 58.9 % [facility] Neutr Abs (ANC) 6.48 (H) 1.70 - [facility] 6.10 [facility] x10(3)/[facility] LABORATORY Lymphocytes % 30.4 % [facility] Lymphocytes Abs 3.3 (H) 0.9 - 3.2 [facility] x10(3)/[facility] LABORATORY Monocytes % 7.4 % [facility] Monocyte Abs 0.8 0.3 - 0.9 [facility] x10(3)/[facility] LABORATORY Eosinophils % 2.6 % [facility] Eosinophils Abs 0.3 0.0 - 0.4 [facility] x10(3)/[facility] LABORATORY Basophils % 0.3 % [facility] Basophils Abs 0.0 0.0 - 0.1 [facility] x10(3)/[facility] LABORATORY Immature Gran % 0.40 % [facility] Comment: Immature granulocytes(IG's)percentage an d absolute count will include metamyelocytes, myelocytes, and promyelo cytes. Blood smears from CBCs yielding IG's will be scanned manually for concor dance. If this scan disagrees with the automated IG or if promyelocytes are not ed, a manual differential will be performed. Irina Gran Abs 0.04 0.00 - 0.04 x10(3)/[facility] MAR Y [facility]ORATORY Specimen Anatomical Collection Method Collection Time Receive d Time (Source) Location / / Volume Laterality Blood specimen 09/12/2018 10:23 9 (specimen) AM EST 10:36 AM EST Resulting Agency Comment Spec In Lab Joni Drew MD HEMATOLOGY ORDERABLES Performing Organization Address City/State/[place] [address] (ABNORMAL) Hemogram (09/12/2018 10:23 AM EST) Analysis Performed At Patho logist Time Signature WBC 11.0 (H) 4.0 - 9.5 [facility] x10(3)/[facility] LABORATORY RBC 4.00 4.00 - [facility] 5.21 [facility] x10(6)/[facility] LABORATORY Hemoglobin 12.2 11.7 - [facility] 15.5 gm/dL [facility] LABORATORY Hematocrit 37.7 35.7 - [place] 45.8 % [facility] LABORATORY MCV 94.3 82.6 - [place] MON[place] 94.4 [facility] LABORATORY MCH 30.5 27.1 - [place] STUARTCK 32.0 pg [facility] LABORATORY MCHC 32.4 31.7 - [place] 35.0 gm/dL [facility] LABORATORY Platelets 232 145 - 357 [place] x10(3)/[facility] LABORATORY RDWSD 42.7 37.0 - [place] 46.0 [facility] LABORATORY RDWCV 12.4 11.5 - [place] 14.1 % [facility] LABORATORY MPV 10.4 7.6 - 12.9 [place] [facility] LABORATORY nRBC % Auto 0.0 % [facility] nRBC Abs Auto 0.000 0.000 - [place] 0.000 [facility] x10(3)/[facility] LABORATORY Specimen Anatomical Collection Method Collection Time Receive d Time (Source) Location / / Volume Laterality Blood specimen 09/12/2018 10:23 9 (specimen) AM EST 10:36 AM EST Resulting Agency Comment Spec In Lab Joni Drew MD HEMATOLOGY ORDERABLES Performing Organization Address City/State/[place] [address] (ABNORMAL) BMP w/fasting Glucose (09/12/2018 10:23 AM EST) athologist Signature Glucose 241 (H) 65 - 99 [place] Fasting mg/dL [facility]ORY Comment: ?Fasting* Glucose Interpretive C riteria Normal ?65-99 mg/dL Impaired Fasting glucose ?100-125 mg/dL Consistent with Diabetes Mellitus ? >or= 126 mg/dL *Fasting is defined as no caloric intake for at least 8 hours In the absence of unequivocal hypergly cemia a plasma glucose value of >or= 126 mg/dL should be repeated on a subseq u day. Diagnosis and Classification of Diabetes Mellitus, Position Statement from the [place] [employer]. ??Diabete s Care, Volume 33, Supplement 1, Jul 2009 BUN 14 8 - 18 mg/dL [facility] Creatinine 0.71 0.70 - 1.20 mg/dL [facility] Sodium 138 135 - 145 mmol/L [facility] Potassium 4.6 3.5 - 5.0 mmol/L [facility] Comment: Please note: ??Patients with WBC >100,00 0 may have falsely elevated Potassium levels. ??For accurate Potassium quantif ication in these patients send serum separator tube (gold top) for subsequent determinations. ??Contact the Clinical Chemistry Laboratory if there are any qu estions. Chloride 100 98 - 107 mmol/L [facility] CO2 24 22 - 31 mmol/L [facility] Anion Gap 14 5 - 15 mmol/L [facility] Calcium 11.0 (H) 8.5 - 10.5 mg/dL [facility] Estimated GFR 94 >=60 mL/min/1.73 m?? [facility] Comment: The eGFR was calculated using the CKD-EP I equation. As with all creatinine based estimates of kidney function, eGFR values calculated with the CKD-EPI equation are not accurate in patients wi th acute kidney failure, extremes of body mass or the acutely ill. [email or web address]/[facility] eGFR 109 >=60 mL/min/1.73 m?? [facility] Comment: The eGFR was calculated using the CKD-EP I equation. As with all creatinine based estimates of kidney function, eGFR values calculated with the CKD-EPI equation are not accurate in patients wi th acute kidney failure, extremes of body mass or the acutely ill. [email or web address]/[facility] Specimen Anatomical Collection Method Collection Time Receive d Time (Source) Location / / Volume Laterality Blood specimen 09/12/2018 10:23 9 (specimen) AM EST 10:36 AM EST Resulting Agency Comment Spec In Lab Joni Drew MD CHEMISTRY ORDERABLES Performing Organization Address City/State/[place] [address] documented in this encounter Visit Diagnoses Diagnosis Pre-operative cardiovascular examination Congestive heart failure, unspecified HF chronicity, unspecified heart failure type Abnormal nuclear stress test Other nonspecific abnormal cardiovascula r system function study documented in this encounter Administered Medications Inactive Administered Medications - up to 3 most recent administrations Medication Order MAR Action Action Date Dose Rate Site fentaNYL 50 mcg/mL multi-dose Given 09/12/2018 11:59 AM EST 50 m cg injection ONCE PRN, Starting on Arin 09/12/18 at 1159, Until Arin 09/12/18 at 1635, Intra-Operative (Intra-Procedure), Routine heparin (porcine) injection Given 09/12/2018 11:59 AM EST 3,000 Units ONCE PRN, Starting on Arin 09/12/18 at 1159, Until Arin 09/12/18 at 1635, Cath (Intra-Procedure), Routine iohexol (OMNIPAQUE) 350 mg/mL solution Given 09/12/2018 12:05 PM EST 46 mLs ONCE PRN, Starting on Arin 09/12/18 at 1205, Until Arin 09/12/18 at 1635, Cath (Intra-Procedure), Routine lidocaine (XYLOCAINE) 10 mg/mL (1 %) inj ection 3 mg 3 mg (0.3 mL), Subcutaneous, ONCE PRN, 1 dose, Startin g on Arin 09/12/18 at 1034, Until Arin 09/12/18 at 1635, with discomfort with PIV in sertion, Cath (Day of Procedure), Routine midazolam (PF) (VERSED) multi-dose injec tion Given 09/12/2018 11:59 AM EST 2 mg ONCE PRN, Starting on Arin 09/12/18 at 1159, Until Arin 09/12/18 at 1635, Cath (Intra-Procedure), Routine nitroGLYcerin 100 mcg/mL intracoronary Given 09/12/2018 12:00 PM EST 200 mcg dilution ONCE PRN, Starting on Arin 09/12/18 at 1200, Until Arin 09/12/18 at 1635, Cath (Intra-Procedure), Routine sodium chloride 0.9 % flush 5 mL 5 mL, Intravenous, EVERY 12 HOURS, First dose on Arin at 1100, Until Discontinued, Cath (Day of Procedure), Routine sodium chloride 0.9 % flush 5-20 mL 5-20 mL, Intravenous, EVERY 1 MIN PRN, S tarting on Arin 09/12/18 at 1034, Until Arin 09/12/18 at 1635, flush, Flush pertains t o all indwelling lines. Flush per protocol found in the job aid using the link prov ided on this medication record., Cath (Day of Procedure), Routine sodium chloride 0.9% infusion 200 mL/hr, Intravenous, CONTINUOUS, Starting on Arin at 1100, Until Arin 09/12/18 at 1635, Cath (Day of Procedure) documented in this encounter Active and Recently Administered Medications Times are shown in EST. Scheduled Medication Order 09/10/2018 09/11/2018 09/12/2018 sodium chloride 0.9 % flush 5 mL 1100 (Due) 5 mL, Intravenous, EVERY 12 HOURS, First dose on Arin 09/12/18 at 1100, Until Discontinued, Cath (Day of Procedure), Routine Continuous Medication Order 09/10/2018 09/11/2018 09/12/2018 sodium chloride 0.9% infusion 11 00 (Due) 200 mL/hr, at 200 mL/hr, Intravenous, CO NTINUOUS, Starting Arin 09/12/18 at 1100, Until Arin 09/12/18 at 1635, Cath (Day of Procedure) sodium chloride 0.9% infusion 13 30 (Not Given - Provider: Ted Reed RN - Reason: Per MD Order) 1 mL/hr, at 1 mL/hr, Intravenous, CONTIN UOUS, Starting Arin 09/12/18 at 1330, Until Arin 09/12/18 at 1429, Recovery (Recovery-Hospital Unit) PRN Medication Order 09/10/2018 09/11/2018 09/12/2018 atropine injection 1 mg 1 mg, Intravenous, EVERY 5 MIN PRN, 2 do ses, Starting Arin 09/12/18 at 1311, Until Arin 09/12/18 at 1635, Other, vasovagal episode, Call interventional MD., Cath (Recovery-Hospital Unit), Routine fentaNYL 50 mcg/mL multi-dose injection 1159 (Given - Provider: Corby Mcdonough RN) ONCE PRN, Starting Arin 2/19 at 1159, Until Arin 219 at 1635, Intra- Operative (Intra-Procedure), Routine heparin (porcine) injection 1159 (Given - Provider: Corby Mcdonough RN) ONCE PRN, Starting Arin 2/19 at 1159, Until Arin 2 at 1635, Cath (Intra- Procedure), Routine HYDROmorphone (DILAUDID) tablet 2 mg 2 mg, Oral, EVERY 4 HOURS PRN, Starting Arin 219 at 1311, Until Arin 219 at 1635, Pain, Cath (Recovery-Hospital Unit), Routine iohexol (OMNIPAQUE) 350 mg/mL solution 1205 (Given - Provider: Clementine Fraire MD) ONCE PRN, Starting Arin 2 at 1205, Until Arin 2 at 1635, Cath (Intra- Procedure), Routine lidocaine (XYLOCAINE) 10 mg/mL (1 %) injection 3 mg 3 mg (0.3 mL), Subcutaneous, ONCE PRN, 1 dose, Starting Arin 09/12/18 at 1034, Until Arin 2 at 1635, with discomfort with PIV insertion, Cath (Day of Procedure), Routine midazolam (PF) (VERSED) injection 1 mg 1 mg, Intravenous, EVERY 1 HOUR PRN, 2 d oses, Starting Arin 09/12/18 at 1311, Until Arin 219 at 1635, Sleep, For sheath removal, May repeat once while in Cath Recovery Unit., Cath (Recovery-Hospital Unit), Routine midazolam (PF) (VERSED) multi-dose injection 1159 (Given - Provider: Corby Mcdonough RN) ONCE PRN, Starting Arin 219 at 1159, Until Arin 219 at 1635, Cath (Intra- Procedure), Routine nitroGLYcerin 100 mcg/mL intracoronary dilution 1200 (Given - Provider: Clementine Fraire MD) ONCE PRN, Starting Arin 2 at 1200, Until Arin 2 at 1635, Cath (Intra- Procedure), Routine sodium chloride 0.9 % flush 5-20 mL 5-20 mL, Intravenous, EVERY 1 MIN PRN, S tarting Arin 09/12/18 at 1034, Until Arin 09/12/18 at 1635, flush, Flush pertains to all indwelling lines. Flush per protocol found in the job aid using the link prov ided on this medication record., Cath (Day of Procedure), Routin e documented in this encounter Care Teams Clip On Sunglasses Assembler Relationship Specialty Start Date End Date Albert Zuleta MD PCP - General Family Medicine 01/17/17 10/26/21 [address] [place] [id number] documented as of this encounter
--- OUTSIDE RECORDS SUMMARY | 2022-02-08 01:58 | XMS_ITS | Encounter Summary ---
:1960 Author Organization [facility] [place] [address] Care Team Providers Name Role Phone Albert [...] Expiration Date Visits Requ ested Visits Authorized [id number] 1 1 Encounter Details Date Type Department Care Team Description 09/26/2018 Anesthesia Event Main Operating Room Sushma Tam MD [facility] [place] [address] [facility] Gareth Dobbs MD [facility] [place] [address] [facility] [place] [address] Anesthesia Record Procedure Summary Procedure Name Responsible Anesthesia Start Anesthesia Stop Time Anesthesiologist Time NEPHROLITHOTOMY, Sushma eReder MD 09/26/18 1405 09/26/18 1842 (PCNL) PERCUTANEOUS, OVER 2CM (WRVU 23.5) (Right Flank) Events Date Time Event Comment 09/26/2018 1312 1405 AN Verify 1405 Start 1409 An Start Data 1416 An Induction 1419 An Intubation 1421 Anesthesia Ready 1426 Quick Note Patient turned i nto prone position, neck remains in neutr al position, positioned gel pads under body, breaths equal after placed in prone positio n. 1516 Procedure Start 1817 Procedure Stop 1826 Quick Note 1830 Extubation/LMA Out 1834 an stop data 1842 Recovery or ICU Handoff Patient care was transferred to the destination unit staff after review of the patient's medica l history, current anesthetic/surgi beverley status and plan, according to the Provider Handoff Checklist. 1842 Stop Name Total Midazolam 2 mg fentaNYL 100 mcg IV Lidocaine 40 mg Propofol 200 mg Rocuronium 60 mg PHENYLephrine 320 mcg Ondansetron 8 mg Neostigmine 4 mg Glycopyrrolate 0.8 mg vancomycin 1 g in 0.9 % sodium chloride 200 mL 1 g gentamicin (GARAMYCIN) 450 mg in sodium chloride 0.9% 111.25 mL 0.45 g Dexmedetomidine 44 mcg Propofol INF 1,161.03 mg PHENYLephrine INF 3,890 mcg Magnesium Sulfate 2 g HYDROmorphone 1.2 mg Lactated Ringers 600 mL Lactated Ringers 900 mL Agents Name O2 Air N2O Sevoflurane (et) Blood No blood administrations on file. Lines, Drains, and Airways Type Details Placement Removal Incision 07/10/18; other (see 07/10/18 0000 by 03/07/19 0 000 by comments) (Rt Kassy Guevara, Avani Lakhani RN ureteral/cysto procedure); LDA not present upon assessment; 03/07/19 PIV 07/23/18; 0145; basilic 07/23/18 0145 by von 02/07 1837 by vein (medial side of Toan Lopez, Greg, tobin arm), left; Charmaine Ray RN K, RN aydi-cxa-vylbvq catheter system; 20 gauge; intradermal injection, tolerated well; 0; 09/26/18; 1837 (RETIRED) Peripheral 08/29/18; 0804; median 08/29/18 0804 by 0000 by IV cubital vein (antecubital Lilliana, Jose Maria thomason, Sarah Gardner, Insertion/Assessment fossa), left; RN (Infant) - Double dzub-tsb-mzlkrr catheter Lumen system; 22 gauge; LDA not present upon assessment; 11/07/18 PIV 09/26/18; 1214; cephalic 09/26/18 1214 by 0000 by vein (lateral side of Caridad Russell Timothy A, arm), right; BRYAN Zhou RN wzhn-txw-qszzik catheter system; 20 gauge; Caridad Russell RN; intradermal injection; removed at some point last evening - iv not present on assessment; other (see comments); 09/28/18; 0000 ETT Mask Ventilation: Easy 09/26/18 1419 by 09/26/18 1830 by (1); ETT Type: Cuffed, Hola Madera S, Hola Madera, Oral; ETT Size: 7.5 mm; NOISE ABATEMENT ENGINEER NOISE ABATEMENT ENGINEER Mac Blade: 3; Notes: Asleep, Pre-O2, Cricoid Pressure; Attempts: 1; Laryngoscopy Grade: 1; ETT Placement Verified By: Auscultation, Capnometry, Visual; Secured at Teeth: 21 cm; Inserted by: tammy PIV 09/26/18; 1443; 09/26/18 1443 by 09/28/18 0811 b y metacarpal vein (top of Hola Madera Bailey, Timothy A, hand), left; NOISE ABATEMENT ENGINEER RN bdji-vpr-pegxmf catheter system; 16 gauge; tolerated well; removed inadvertently; 09/28/18; 0811 Urethral Catheter 09/26/18; 1510; Urologic 09/26/18 1510 by 09/20 08/10 1054 by surgery, Surgery longer Loyda Cabrera, Nica Valdez V, than 2 hours, Physician RN ROXANNA order, Need for intraoperative urine output monitoring; Bladder outlet obstruction, Prolonged Immobilization, Physician order, Obtain urine specimen; indwelling double lumen catheter; latex; 18; inserted at this facility (Isaias Ortega, med student ); 1; 10; 10; none; drainage bag to dependent drainage; 09/30/18; 1054 Incision 09/26/18; 1517; (back); 09/26/18 1517 by 9 0000 by LDA not present upon Stew, BRYAN Washington Anne L, RN assessment; 03/07/19 Lumbar/CSF Drain 09/26/18; 1806; Right; 09/26/18 1806 by 9 1413 by anterior; flank; other Loyda Cabrera Baile y, Qamar A, (see comments) (24 Fr RN RN nephrostomy tube.); 09/27/18; 1413 Lumbar/CSF Drain 09/26/18; 1808; Right; 09/26/18 1808 by 9 1411 by posterior; flank; other Loyda Cabrera Bail ey, Qamar Akhtar, (see comments) (24 Fr RN RN nephrostomy tube.); 09/27/18; 1411 documented in this encounter Social History Tobacco [...] encounter OR Notes Anesthesia Postprocedure Evaluation - Sushma Reeder MD - 09/30/2018 2:24 PM EDT [facility] Department of Anesthesiology Post-procedure Note Patient: Blossom Samayoa Procedure Summary Date: 09/26/18 Room / Location: [address] MAIN OR Anesthesia Start: 1405 Anesthesia Stop: 1841 Procedures: NEPHROLITHOTOMY, (PCNL) PERCUTANEOUS, OVER 2CM (WRVU 23.5) (Right Flank) CYSTOURETEROSCOPY, DIAGNOSTIC (WRVU 5.75) (Right Ureter) CYSTO, REMOVAL OF STENT, FOREIGN BODY, CALCULUS, COMPLICATED (WRVU 5.2) (Right Ureter) NEPHROSTOMY CATHETER, PERC, INC DX NEPHROSTOGRAM/URETEROGRAM, IMG GUIDANCE (WRVU 4.25) (Right Flank) CYSTO, RETROGRADE, URETEROPYELOGRAPHY, W/PCNL (WRVU 2.37) (Right Bladder) ULTRASONIC GUIDANCE, INTRAOP (WRVU 1.2) (Right ) FLUOROSCOPY (WRVU 0.17) (N/A ) Diagnosis: (Right renal stone) Surgeon: Crow Galvin Jr., MD Responsible Provider: Sushma Reeder MD Anesthesia Type: general ASA Status: 3 All Anesthesia Providers: Anesthesiologist: Sushma Reeder MD NOISE ABATEMENT ENGINEER: Hola Madera CRNA Vitals Value Taken Time BP 130/60 09/30/2018 12:13 PM Temp 36.5 ??C (97.7 ??F) 09/30/2018 12:13 PM Pulse 69 09/29/2018 4:43 AM Resp 18 09/30/2018 12:13 PM SpO2 96 % 09/30/2018 2:24 PM Pain Level 1 09/30/2018 9:43 AM Vitals shown include unvalidated device data. Patient Location: PACU/[facility] Level of Consciousness: Awake and Alert Pain Management: Satisfactory Analgesia PONV: None Cardiovascular Status: At Baseline Respiratory Status: Supplemental O2 (NC or FM) Postoperative Fluid Status: Intravascular EUvolemia Possible Anesthetic Complications: NONE apparent at time of evaluation Final Primary Anesthesia Type: General (The anesthetic type performed was the same as planned.) Comments: Anesthesia Preprocedure Evaluation - Sushma Reeder MD - 08/28/2018 1:37 PM EST Pre-Anesthesia Evaluation for: Blossom Samayoa a 57 y.o. female. Procedure(s): NEPHROLITHOTOMY, (PCNL) PERCUTANEOUS, OVER 2CM (WRVU 23.5) PERCUTANEOUS INTRO GUIDE WIRE TO ACCESS RENAL PELVIS,AND OR URETER, W\DILATION (WRVU 3.37) CYSTO, RETROGRADE, URETEROPYELOGRAPHY, W/PCNL (WRVU 2.37) CYSTOURETEROSCOPY, [...] ??? CHF (congestive heart failure) diag 2016 [facility] ??? Chronic lung disease sarcoidosis [...] failure 'don't know if it's failure ??? group home current use of opiate analgesic PCP ??? Mental health problem ??? Obstructive sleep apnea diag 2007 ??? Osteoma of ear canal ??? Vertigo balance prob,last fall early Jun. Past Surgical History: Procedure Laterality Date ??? PRO CYSTOSCOPY, INSERT URETERAL STENT Right 07/10/2018 CYSTO, STENT PLACEMENT (WRVU 2.82) performed by Viky Sears MD at [facility] MAIN OR ??? PRO CYSTOURETHROSCOPY, URETER CATHETER Right 07/10/2018 CYSTO, RETROGRADE, URETEROPYELOGRAPHY (WRVU 2.37) performed by Viky Sears MD at [facility] MAIN OR Social History Tobacco [...] full Cardiovascular Assessment: Rhythm: regular Rate: normal (-) peripheral edema Pulmonary Assessment: breath sounds clear to auscultation PE comment: O2 sat 97% on RA. Dental Assessment: - normal exam Comment: Denies loose/chipped teeth. Misc Assessment: Patient is wearing No contact(s). IV access: Peripheral line Other exam findings: Alert, cognition intact, morbidly obese with large pannus, gait slow but steadywith a cane. Anesthesia Plan: ASA 3 general, with a(n) intravenous induction Patient is a 57 yo obese female with h/o LBBB, sarcoid and GERD who presents for nephrolithotomy, cysto, uterteroscopy Patient denies... Card cath: Pt referred for an abnormal stress test. Coronary angiography showed minimal epicardial CAD with normal filling pressures. Recommend continued medical therapy for primary prevention of CVD. Labs: [id number] K4.8 Cr 0.7 Plan: GA with ETT. Standard ASA monitors. Region - Other Informed Consent: Anesthetic plan and risks discussed with patient. Use of blood products discussed with patient who consented to blood products. Plan discussed with NOISE ABATEMENT ENGINEER. PAT Staff Documentation: Reason for PAT Contact: Surgeon Request Hx of Anesthesia Problem: Hallucinations with ketamine. Was Patient Seen in PAT? Yes Additional/Outside Data Requested? No Findings, Assessment and Action: Ms. Samayoa is a 57 y.o. year old female seen in [facility] prior to planned PCNL with Dr. Crow Galvin. Pertinent PMH includes: obesity (BMI 51); IDDM2 (per pt: A1c >8); HTN (treated); cardiomyopathy (EF 45% in 2009); LBBB; COPD/asthma; PTSD/anxiety/depression; sarcoidosis; peripheral neuropathy (toes); chronic pain ([place] 5/325 bid). Substance Hx: Smoking: quit 2 yrs ago Alcohol: no Other drugs: very infrequent marijuana Caffeine: 1 cup of coffee daily ROS: Denies chest discomfort, palpitations, syncope, orthopnea, lower extremity edema. Denies SOB, cough, wheezing. Only infrequent use of rescue inhaler and not recently. Denies GERD sx. She rates her chronic pain (hip, leg, peripheral neuropathy) as 6/10 today (almost writhing) as she has walked more than usual. Her pain is never below 3/10 even with medication. Exercise tolerance is fair. 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 She was seen by Dr. Drew earlier today who has ordered an echo and a stress test. Anesthesia record 07/10/2018: Gr 1 view with Mac 3, EZ MV. Ruth Ogden APRN Pre-Admission Testing [phone] documented in this encounter Miscellaneous Notes Addendum Note - Sushma Reeder MD - 09/30/2018 2:25 PM EDT Addendum created 09/30/18 1425 by Sushma Reeder MD Sign clinical note documented in this encounter Plan of Treatment Upcoming Encounters Date Type Specialty Care Team Description 03/15/2022 Office Visit Neurology Ryann Barfield APRN [facility] [address] [place] [address] 03/23/2022 Appointment Radiology Hailey Mcclendon MD [facility] [address] [place] [address] 03/23/2022 Laboratory Appointment Lab 03/23/2022 Office Visit Gastroenterology Hailey Mcclendon MD [facility] [address] [place] [address] 05/23/2022 Procedure visit Maxillofacial Surgery Corby Montes MD [facility] [address] [place] [address] documented as of this encounter Visit Diagnoses Not on filedocumented in this encounter Administered Medications Inactive Administered Medications - up to 3 most recent administrations Medication Order MAR Action Action Date Dose Rate Site dexmedetomidine (PRECEDEX) Given 09/26/2018 6:23 PM EST 4 mcg injection PRN, Starting on Arin 09/26/18 at 1448, Until Arin 09/26/18 at 1843, Anesthesia Intra-op, Routine Given 09/26/2018 6:03 PM EST 4 mcg Given 09/26/2018 5:53 PM EST 4 mcg fentaNYL 50 mcg/mL multi-dose injection Given 09/26/2018 2:16 PM EST 100 mcg PRN, Starting on Arin 09/26/18 at 1416, Until Arin 09/26/18 at 1843, Anesthesia Intra-op, Routine gentamicin (GARAMYCIN) 450 mg in sodium New Bag 09/26/2018 2:47 PM EST 450 mg chloride 0.9% 111.25 mL 450 mg, Intravenous, ONCE, 1 dose, On Arin 09/26/18 at 1145, Administer over 60 Minutes, Day of Surgery (Day of Procedure), Indication for (Active or Suspected): Prophylaxis glycopyrrolate (ROBINUL) multi-dose inje ction Given 09/26/2018 6:01 PM EST 0.8 mg PRN, Starting on Arin 09/26/18 at 1801, Until Arin 09/26/18 at 1843, Anesthesia Intra-op, Routine HYDROmorphone (DILAUDID) injection Given 09/26/2018 5:31 PM EST 0.4 mg PRN, Starting on Arin 09/26/18 at 1555, Until Arin 09/26/18 at 1843, Anesthesia Intra-op, Routine Given 09/26/2018 4:35 PM EST 0.4 mg Given 09/26/2018 3:55 PM EST 0.4 mg lactated Ringers infusion New Bag 09/26/2018 2:44 PM EST CONTINUOUS PRN, Starting on Arin 09/26/18 at 1444, Until Arin 09/26/18 at 1843, Anesthesia Intra-op lactated Ringers infusion New Bag 09/26/2018 2:05 PM EST CONTINUOUS PRN, Starting on Arin 09/26/18 at 1405, Until Arin 09/26/18 at 1843, Anesthesia Intra-op lidocaine (PF) (XYLOCAINE) 100 mg/5 mL (2 %) Given 9 2:16 PM EST 40 mg injection PRN, Starting on Arin 09/26/18 at 1416, Until Arin 09/26/18 at 1843, Anesthesia Intra-op, Routine magnesium sulfate 4 mEq/mL (50 %) inject ion Given 09/26/2018 3:27 PM EST 2 g PRN, Starting on Arin 09/26/18 at 1527, Until Arin 09/26/18 at 1843, Anesthesia Intra-op, Routine midazolam (PF) (VERSED) multi-dose injec tion Given 09/26/2018 2:05 PM EST 2 mg PRN, Starting on Arin 09/26/18 at 1405, Until Arin 09/26/18 at 1843, Anesthesia Intra-op, Routine neostigmine (BLOXIVERZ) injection Given 09/26/2018 6:01 PM EST 4 mg PRN, Starting on Arin 09/26/18 at 1801, Until Arin 09/26/18 at 1843, Anesthesia Intra-op, Routine ondansetron (ZOFRAN) injection Given 09/26/2018 6:02 PM EST 4 mg PRN, Starting on Arin 09/26/18 at 1504, Until Arin 09/26/18 at 1843, Anesthesia Intra-op, Routine Given 09/26/2018 3:04 PM EST 4 mg PHENYLephrine Rate/Dose Change 09/26/2018 5:49 PM 40 mcg/min 30 mL/hr (JOCELYN-SYNEPHRINE) 20 mg in EST sodium chloride 250 mL (standard ADULT & Pedi greater than 20kg) infusion CONTINUOUS PRN, Starting on Arin 09/26/18 at 1518, Until Arin 09/26/18 at 1843, Anesthesia Intra-op, Routine Rate/Dose Change 09/26/2018 5:36 PM EST 60 mcg/min 45 mL/hr Rate/Dose Change 09/26/2018 5:21 PM EST 40 mcg/min 30 mL/hr PHENYLephrine in NS (PF) (JOCELYN-SYNEPHRINE) 0.8 Given 3:09 PM EST 80 mcg mg/10 mL (80 mcg/mL) multi-dose injection Syrg PRN, Starting on Arin 09/26/18 at 1451, Until Arin 09/26/18 at 1843, Anesthesia Intra-op, Routine Given 09/26/2018 3:03 PM EST 80 mcg Given 09/26/2018 2:51 PM EST 80 mcg propofol (DIPRIVAN) 10 mg/mL bolus injection Given 01/2019 2:16 PM EST 200 mg (Anesthesia) PRN, Starting on Arin 09/26/18 at 1416, Until Arin 09/26/18 at 1843, Anesthesia Intra-op propofol (DIPRIVAN) infusion New Bag 09/26/2018 2:49 PM 50 mcg/kg/min 41.2 mL/hr CONTINUOUS PRN, Starting on EST Arin 09/26/18 at 1449, Until Arin 09/26/18 at 1843, Anesthesia Intra-op, Routine rocuronium (ZEMURON) multi-dose injectio n Given 09/26/2018 3:23 PM EST 10 mg PRN, Starting on Arin 09/26/18 at 1416, Until Arin 09/26/18 at 1843, Anesthesia Intra-op, Routine Given 09/26/2018 2:16 PM EST 50 mg vancomycin 1 g in 0.9 % sodium chloride 200 mL Given 09/26/2018 2:21 PM EST 1 g 1 g, Intravenous, ONCE, 1 dose, On Arin 09/26/18 at 1145, Administer over 60 Minutes, Maximum infusion rate is 1 gram/hour. If flushing of the face, neck, upper body, arms, and/or back occurs decrease infusion rate by 50% to reduce the severity of symptoms. This medication may have an associated drug lab level. Please see MAR for scheduled level. Warning Vesicant/Irritant Medication , Day of Surgery (Day of Procedure), Indication for (Active or Suspected): Prophylaxis documented in this encounter Care Teams Bulk Picker Relationship Specialty Start Date End Date Albert Zuleta MD PCP - General Family Medicine 01/17/17 10/26/21 [address] [place] [phone] documented as of this encounter
--- OUTSIDE RECORDS SUMMARY | 2022-02-08 01:58 | XMS_ITS | Encounter Summary ---
:1960 Author Organization [facility] [place] [address] Care Team Providers Name Role Phone Albert [...] Expiration Date Visits Requ ested Visits Authorized [id number] 1 1 Encounter Details Date Type Department Care Team Description 09/26/2018 Surgery Main Operating Room Crow Galvin Jr. N EPHROLITHOTOMY, (PCNL) Hailey Mandujano MD PERCUTANEOUS, OVER 2CM Hospital [facility] (WRVU 23.5) [facility] [place] [address] [place] [address] [phone] (Wo rk) Social History Tobacco Use Types [...] Sign Reading Time Taken Comments Blood Pressure 121/78 09/26/2018 11:37 AM EST Pulse 78 09/26/2018 11:37 AM EST Temperature 36.6 ??C (97.9 ??F) 09/26/2018 11:37 AM EST Respiratory Rate 18 09/26/2018 11:37 AM EST Oxygen Saturation 99% 09/26/2018 11:37 AM EST Inhaled Oxygen Concentration - - Weight - - Height - - Body Mass Index - - documented in this encounter Discharge Summaries Marquis Christopher MD - 10/01/2018 3:03 PM EDT Discharge Summary Patient Name: Blossom Samayoa Patient Age: 57 y.o. Language: Greek Race: Declines to List Ethnicity: Not nor [...] BODY, CALCULUS, COMPLICATED (WRVU 5.2) NEPHROSTOMY CATHETER, [employer] DX NEPHROSTOGRAM/URETEROGRAM, IMG GUIDANCE (WRVU 4.25) [...] Dr. Sears on 07/09/2019. Urine cultures from [facility] showed Proteus Mirabilis. Blood cultures at [facility] showed no growth. He was discharged on [...] seen her local urologist, Dr. Zuleta, in [facility] for dysuria and hematuria. A culture was [...] yesterday. She does have anappointment with her bulk gas specialist this afternoon. Hospital Course: Patient was admitted electively to [facility] via the same day surgery program and [...] outpatient antibiotics per ID. On POD 5 (10/01) the patient remained afebrile, with stable vital [...] Weight: Wt Readings from Last 1 Encounters: 09/27/18 (!) 137.4 kg (303 lb) Height: Ht Readings from Last 1 Encounters: 09/27/18 167.6 cm (5' 6) BMI: Body mass [...] Former Smoker ??? Packs/day: 1.00 ??? Years: 30. ??? Pack years: 30. ??? Types: Cigarettes ??? Last attempt to [...] incisions ??? The number for questions is [phone] before 5 PM weekdays and [phone] after 5 PM and weekends. Activity: Gradually [...] (acetaminophen) or ibuprofen (Advil, Motrin) as directed [id number]. Take any prescriptions as directed. Follow up Appointments: Follow-up appointment will be scheduled with Dr. Galvin in 2 weeks for a hospital check and stent removal. Appointment will be mailed to you. Please call [phone] (clinic number for appointments) to confirm date [...] Galvin Jr., MD; UROLOGY, PROCEDURE Urology at [place] Arrive at: [employer]ician [employer] Area 5B [phone] 10/21/2018 10:00 AM Ace Henry MD General Surgery at [place] Arrive at: [employer] 4L [phone] Future Orders Complete By Expires OPAT: Order / Recommendation for Post Discharge IV Antibiotic Management [QXA005 CPT(R)] As directed Process Instructions: If no progress note charted, please enter Clinical details in comments. Scheduling Instructions: Comments: Please Fax all results to: OPAT Program Infectious Disease Section [facility], [place] [address] FAX: Line care instructions per [facility] OPAT Program protocol. After hours, please contact the Infectious Disease Physician pump installation and servicer at . If this order was signed greater than 72 hours prior to [facility] discharge, please call to confirm the accuracy [...] Referral to Home Health - at DISCHARGE [GSW3121 CPT(R)] As directed Process Instructions: Scheduling Instructions: Comments: DOCUMENTATION FOR VNA SERVICES (INCLUDING THOSE PATIENTS WITH MEDICARE COVERAGE REQUIRING HOME VNA SERVICES AND/OR HOSPICE SERVICES) PATIENT'S LOCATION: Blossom Samayoa [address] [place] [address] 5 [facility] [id number] (home) Cobol Engineer's Name: Self In discussion with the attending physician, it is certified that this patient is under their care and that they, or a Nurse Practitioner,Clinical Nurse specialist or Physician Agricultural Equipment Design Engineer who is working directly with them, had [...] re health issues HOME HEALTH CARE AGENCY: [facility]. PHONE: [phone] FAX: [phone] Start of care: 24-48hrs after discharge FOR [...] need to be obtained from this patient'sPCP: MD Shannan Roger DR / [facility] [address] All VNA agencies which cover the area of patient's residence have been reviewed, either verbally or in writing, and patient/family have chosen the home health care agency noted Questions: Agency name and contact information: [facility] Patient location post discharge: Home What services are requested: Registered Nurse Start date: Responsible MD post discharge contact info: PCP Follow-Up: Future Appointments Date Time Provider Department Center 10/10/2018 1:20 PM Crow Galvin Jr., MD MSO Uro [facility] 10/21/2018 10:00 AM Ace Henry MD Leb Surg [facility] Primary Care Provider: Albert Zuleta MD [phone] Follow-up Recommendations for Providers: Please see discharge [...] was managed by the Urology Team at [facility]. If you have any questions or concerns, please feel free to contact us. Provider Contact Information: Urology Clinic: [facility] (after business hours): documented in this encounter Discharge Instructions Patient InstructionsMarquis Christopher MD - 09/27/2018 8:53 AM EST DISCHARGE INSTRUCTIONS FOLLOWING PCNL Call your doctor for: ??? fevers greater than 100.5 ??? severe nausea or vomiting ??? increasing pain not controlled by pain medications ??? increasing redness or drainage from incisions ??? The number for questions is [phone] before 5 PM weekdays and [phone] after 5 PM and weekends. Activity: Gradually [...] (acetaminophen) or ibuprofen (Advil, Motrin) as directed [id number]. Take any prescriptions as directed. Follow up Appointments: Follow-up appointment will be scheduled with Dr. Galvin in 2 weeks for a hospital check and stent removal. Appointment will be mailed to you. Please call [phone] (clinic number for appointments) to confirm date [...] as of this encounter Progress Notes Kishore Mac RN - 10/01/2018 4:03 PM EDT Patient Name: Blossom Samayoa Patient Age: 57 y.o. Birthdate: 1960 Admit date: 09/26/2018 Attending Physician: Crow Galvin Jr., MD Pt being discharged to home with VNA services. 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 Reviewed discharge paperwork at the bedside with the patient and the sister, who verbalized understanding of the discharge instructions. Sister is providing ride to home. Pt left unit via wheelchair with staff assist for discharge at [facility]. Brandi Bolton RN - 10/01/2018 1:07 PM EDT Office of Care Management (OCM) / Veterinary Inspector(CM) ID has recommended IV antibiotics for 2 weeks. Patient has part D & most of medication is covered. Patient would prefer to go home. Sister is retired RN & can help. Teach done by [facility] regarding administration of IV push medication. VNA notified of discharge today with IV antibiotics every 8 hours Cefepime 2 Grams. VNA will see pradeep 10/02/18. PICC line placed in right arm. Brandi Bolton RN Case Manager Pager [phone] Leon Razo MD - 10/01/2018 7:49 AM [...] future testing is required, contact the Microbiology Button Machine Operator. Gram Stain Anaerobic Abnormal Growth detected in [...] Rods 09/29 Blood cultures x 2 - no growth [...] Independent, eyes on Surveillance [continuous indirect monitoring]: juliet Childs rounding Patient-specific fall prevention interventions for sensory [...] questions arise do not hesitate to contact [employer] pager [phone]. Awilda Ulloa MD Infectious Disease Fellow Pager [phone] Associated attestation - Rah Rogers MD - [...] 97 % SpO2: [94 %-98 %] 09/29 0701 - 09/30 0700 In: 2930 [P.O.:2930] Out: 7425 [Urine:7425] PE: Body mass index is 48.91 kg/m??. General: AOx3, NAD, conversant HEENT: PERRL, anicteric sclerae Cardiopulm: nonlabored breathing Abd: morbidly obese, soft, nontender, non-distended Back: R flank dressing CDI : zheng in place with clear yellow output Ext: warm, well perfused, no edema Labs: Recent Labs 09/30/18 0518 09/29/18 0550 09/28/18 0201 WBC 10.3* 9.5 11.7* HGB 10.1* 8.5* 9.1* HCT 32.7* 26.9* 28.3* PLATELET 186 148 147 Recent Labs 09/30/18 0518 09/29/18 0550 09/28/18 0201 NA 138 138 [...] 95 % SpO2: [91 %-98 %] 09/28 700 - 09/29 07 In: 6127 [P.O.:3985; I.V.:2041] Out: 6225 [Urine:6225] [...] +GNRs Tissue Culture, Aerobic & Anaerobic Kidney [[id number]] Collected: 09/26/181735 Lab Status: In process Specimen: Kidney Updated: 09/27/18925 Tissue culture [[id number]] (Abnormal) Collected: 09/26/181735 Lab Status: Preliminary result Specimen: Kidney Updated: 09/27/18925 Tissue Culture Rare Gram Negative RodsAbnormal Gram Stain --Abnormal No Neutrophils seen. No microorganisms seen. Abnormal Urine culture Cystoscopic Urine [[id number]] (Abnormal) Collected: 09/26/181521 Lab Status: Preliminary result Specimen: Cystoscopic Urine Updated: 09/27/18 1120 Urine Culture --Abnormal 1,000-9,000 cfu/ml Gram Negative Rods 1,000-9,000 cfu/ml Gram Negative Rods #2 Abnormal Urine culture Cystostomy Urine [[id number]] (Abnormal) Collected: 09/26/181521 Lab Status: Preliminary result [...] AM EDT Received pt in bed from . Pt AxO 4 NC 2l. On CPAP @ night. Refused CPAP last night. OOB with 1 assist with cane. High fall risk.On IV ABX. C/O pain. Pain relieved with scheduled tylenol. High Blood sugar, insulin coverage given.Continue monitor pt. Óscar Archibald RRT - 09/28/2018 11:03 PM EST Pt refused NIV use this evening. Leon Razo MD - 09/28/2018 8:30 AM EST Urology [...] This morning she thought she was in [facility]. - Pain well controlled. Tolerating diabetic diet. - UOP adequate, Cr 1.06 (1.58) O: Last value Range last 24hrs Temperature Temp: 36.8 ??C (98.3 ??F) Temp: [36.8 ??C (98.3 ??F)-38.7 ??C (101.6 ??F)] Heart Rate Heart Rate: 98 Heart Rate: [80-98] Blood Pressure BP: 168/71 BP: (60-168)/(37-77) Respiratory Rate Resp: 20 Resp: [15-20] SpO2 SpO2: 98 % SpO2: [95 %-99 %] 09/27 07 - 09/28 0700 In: 4850 [P.O.:3390; I.V.:1460] [...] with red/brown clear output Labs: Recent Labs 09/28/1820009/27/1814809/26/181914 WBC 11.7* 20.0* 7.3 HGB 9.1* 10.1* 13.3 HCT 28.3* 32.0* 41.9 PLATELET 147 200 247 Recent Labs 09/28/18 02009/27/1814809/26/181914 NA 134* 134* 137 K 3.9 4.0 4.6 CL 103 100 102 CO2 20* 20* 18* BUN 19* 15 11 CREATININE 1.06 1.58* 0.88 GLUCOSE 248* 206* 166 CALCIUM 9.6 9.7 10.5 PTH -- 49 -- Microbiology: Tissue Culture, Aerobic & Anaerobic Kidney [[id number]] Collected: 09/26/181735 Lab Status: In process Specimen: Kidney Updated: 09/27/18925 Tissue culture [[id number]] (Abnormal) Collected: 09/26/181735 Lab Status: Preliminary result Specimen: Kidney Updated: 09/27/18925 Tissue Culture Rare Gram Negative RodsAbnormal Gram Stain --Abnormal No Neutrophils seen. No microorganisms seen. Abnormal Urine culture Cystoscopic Urine [[id number]] (Abnormal) Collected: 09/26/181521 Lab Status: Preliminary result Specimen: Cystoscopic Urine Updated: 09/27/18 1120 Urine Culture --Abnormal 1,000-9,000 cfu/ml Gram Negative Rods 1,000-9,000 cfu/ml Gram Negative Rods #2 Abnormal Urine culture Cystostomy Urine [[id number]] (Abnormal) Collected: 09/26/181521 Lab Status: Preliminary result [...] pt has resmed for at nite Marquis Christopher MD - 09/27/2018 12:25 PM EST Urology [...] 95 % SpO2: [94 %-100 %] 09/26 0701 - 09/27 0700 In: 5032.3 [P.O.:720; I.V.:4151] Out: 365 [Urine:140] PCN #1= 10cc PCN #2= 15cc PE: General: AOx3, NAD, conversant HEENT: PERRL, anicteric sclerae Cardiopulm: RRR, no mumurs, CTAB no w/r/r Abd: soft, nontender, non-distended Back: R flank dressing CDI- minimal output from PCN tubes Skin: warm, dry Ext: no c/c/e, cap refill <2sec Neuro: CN II-XII intact. Non-focal, moving all four extremities spontaneously : hzeng in place with red/brown clear output Labs: Recent Labs 03/03/10 14909/26/181914 WBC 20.0* 7.3 HGB 10.1* 13.3 HCT 32.0* 41.9 PLATELET 200 247 Recent Labs 09/27/1814809/26/181914 NA 134* 137 K 4.0 4.6 CL 100 102 CO2 20* 18* BUN 15 11 CREATININE 1.58* 0.88 GLUCOSE 206* 166 CALCIUM 9.7 10.5 PTH 49 -- Microbiology: Tissue Culture, Aerobic & Anaerobic Kidney [[id number]] Collected: 09/26/181735 Lab Status: In process Specimen: Kidney Updated: 09/27/18925 Tissue culture [[id number]] (Abnormal) Collected: 09/26/181735 Lab Status: Preliminary result Specimen: Kidney Updated: 09/27/18925 Tissue Culture Rare Gram Negative RodsAbnormal Gram Stain --Abnormal No Neutrophils seen. No microorganisms seen. Abnormal Urine culture Cystoscopic Urine [[id number]] (Abnormal) Collected: 09/26/18 152 Lab Status: Preliminary result Specimen: Cystoscopic Urine Updated: 09/27/18 1120 Urine Culture --Abnormal 1,000-9,000 cfu/ml Gram Negative Rods 1,000-9,000 cfu/ml Gram Negative Rods #2 Abnormal Urine culture Cystostomy Urine [[id number]] (Abnormal) Collected: 09/26/181521 Lab Status: Preliminary result [...] to home tomorrow Marquis Christopher MD Marco Rucker RT - 09/27/2018 3:23 AM EST Respiratory [...] Plan: NIV at rest RT LIZ Chau [place] MD - 09/27/2018 12:16 AM EST Surgery - Post-Operative Check Subjective: Blossom Samayoa is a 57 y.o. female s/p Procedure(s): NEPHROLITHOTOMY, (PCNL) PERCUTANEOUS, OVER 2CM (WRVU 23.5) CYSTOURETEROSCOPY, DIAGNOSTIC (WRVU 5.75) CYSTO, REMOVAL OF STENT, FOREIGN BODY, CALCULUS, COMPLICATED (WRVU 5.2) NEPHROSTOMY CATHETER, [facility] DX NEPHROSTOGRAM/URETEROGRAM, IMG GUIDANCE (WRVU [...] to the planned procedure. Hand Hygiene: The supervisor order takers did perform hand hygiene prior to line insertion. Catheter type: PICC Lot number: [id number] Procedure Technique: Skin was prepped with chlorhexidine. [...] EDT Problem: Health Knowledge, Opportunity to Enhance (Adult,NICU,[place],Obstetrics,Pediatric) Goal: Knowledgeable about Health Subject/Topic Patient will demonstrate the desired outcomes by discharge/transition of care. Peripherally Inserted Central Catheter (PICC) Teaching Sheet Peripherally inserted central catheters (vllz-xt-lfaf) (PICC) are used when you need IV [...] midline catheter? 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 PICC lines may be used for [...] can be set up via the nurse Veterinary Inspector to help you. What are possible complications [...] Efficacy, Safety, Use, and Administration of [employer] 2005 Plan of Care - Amanda Gustafson RN - 10/01/2018 4:27 AM EDT Problem: Patient Care Overview Goal: Plan of Care Review Outcome: Ongoing (Interventions Implemented as Appropriate) 09/28/18 1757 09/30/18 2145 Plan of Care Review Progress progress toward [...] Outcome: Ongoing (Interventions Implemented as Appropriate) 09/30/18204509/30/182099 Alessandro Fall Risk History of Falling -- 0 Secondary Diagnosis -- 15 Ambulatory Aids -- 15 Intravenous Therapy/Heparin/Saline Lock -- 20 Gait/Transferring -- 10 Mental Status -- 0 Score -- 60 OTHER Alessandro Fall Risk -- High Restraint Interventions Safety [...] IV antibiotics upon discharge pending PICC placement Isaias Ortega 09/30/18 GSM [id number] Plan of Care - Thu Navarrete RN - 09/30/2018 3:57 AM EDT Problem: Patient Care Overview Goal: Plan of Care Review Outcome: Ongoing (Interventions Implemented as Appropriate) 09/28/18 1757 09/29/182213 Plan of Care Review Progress progress toward [...] Ongoing (Interventions Implemented as Appropriate) 09/29/18 2100 09/29/182213 Safety Interventions Isolation Precautions standard precautions maintained [...] Name: Blossom Samayoa : 1960 Medical Record: [id number] Date of Service: 09/29/2018 Hospital Day #: Hospital Day: 4 Location: 418/[id number]-B Requesting Provider: Crow Galvin Jr., MD Reason for Consult: We are being asked to see Blossom Samayoa at the request of rCow Galvin Jr., MD for evaluation of urinary tract infection with recent ureteral stone removal, and blood stream infection. Admission Date: 09/26/2018 HPI: Blossom Samayoa is a 57 y.o. [...] happened on 09/26/2018, prior to which she [id number] hours of prophylactic doxycycline. In the OR [...] ??? CHF (congestive heart failure) diag 2016 [facility] ??? Chronic lung disease sarcoidosis ??? Chronic [...] failure 'don't know if it's failure ??? 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 Mental health problem ??? Obstructive sleep apnea diag 2007 ??? Osteoma of ear canal ??? Vertigo balance prob,last fall early Jun. Past Surgical History: Procedure Laterality Date ??? PRG FLUOROSCOPY EXAM UP TO 1 HR [facility] N/A 09/26/2018 FLUOROSCOPY (WRVU 0.17) performed by Crow Galvin Jr., MD at [facility] ??? PRG US GUIDE INTRAOP Right 09/26/2018 ULTRASONIC GUIDANCE, INTRAOP (WRVU 1.2) performed by Crow Galvin Jr., MD at [facility] ? ? PRO CYSTO W URETEROSCOPY &/OR PYELOSCOPY, DX Right 09/26/2018 CYSTOURETEROSCOPY, DIAGNOSTIC (WRVU 5.75) performed by Crow Galvin Jr., MD at [facility] ??? PRO CYSTOSCOPY, INSERT URETERAL STENT Right 07/10/2018 CYSTO, STENT PLACEMENT (WRVU 2.82) performed by Viky Sears MD at [facility] ??? PRO CYSTOSCOPY, REMV CALCULUS, COMPLIC Right 09/26/2018 CYSTO, REMOVAL OF STENT, FOREIGN BODY, CALCULUS, COMPLICATED (WRVU 5.2) performed by Crow Galvin MD at [facility] ??? PRO CYSTOURETHROSCOPY, URETER CATHETER Right 07/10/2018 CYSTO, RETROGRADE, URETEROPYELOGRAPHY (WRVU 2.37) performed by Viky Sears MD at [facility] ??? PRO CYSTOURETHROSCOPY, URETER CATHETER Right 09/26/2018 CYSTO, RETROGRADE, URETEROPYELOGRAPHY, W/PCNL (WRVU 2.37) performed by Crow Galvin Jr., MD at [facility] ??? PRO PERCUT REMV KID STONE, 2+ CM Right 09/26/2018 NEPHROLITHOTOMY, (PCNL) PERCUTANEOUS, OVER 2CM (WRVU 23.5) performed by Crow Galvin Jr., MD at [facility] ? ? PRO PLMT NEPHROSTOMY CATH PRQ NEW ACCESS RS&I Right 09/26/2018 NEPHROSTOMY CATHETER, [employer] DX NEPHROSTOGRAM/URETEROGRAM, IMG GUIDANCE (WRVU 4.25) performed byCrow Galvin Jr., MD at [facility] Medications: Prior To Admission Medications: [...] Maribeth Perry MD Infectious Disease Fellow Pager #[phone] Associated attestation - Kem Valdivia MD - [...] Outcome: Ongoing (Interventions Implemented as Appropriate) 09/28/18 4873 Plan of Care Review Progress progress toward [...] OUTCOME EVALUATION: Ongoing. Consult Note - Shagufta Hernández, RT - 09/28/2018 2:50 PM EST Respiratory [...] Outcome: Ongoing (Interventions Implemented as Appropriate) 09/27/18 1831 Plan of Care Review Progress improving Coping/Psychosocial [...] failure 'don't know if it's failure ??? 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 Mental health problem ??? Obstructive sleep apnea diag 2007 ??? Osteoma of ear canal ??? Vertigo balance prob,last fall early Jun. Hospitalizations Within the Past 30 Days: None Anticipated Length Of Stay (If known): 1 day Admission order confirmed/dated: Crow Galvin Jr., MD 09/26/18 190 Current Decision-Making Capacity: Self, A&Ox3, Full Capacity Advance Care Planning: Full Code Asked TYRONE Fitzpatrick to see patient regarding AD If AD's have not been completed sister Mona would be surrogate decision maker per [place] surrogate decision making law. (Only good for 90 days) Any patient receiving care at [facility] must abide by [place] law. The hierarchy for surrogate decision making [...] (i) The agent with financial power of shrimp pond laborer or a conservator appointed in accordance with RSA 464-A. (j) The guardian of the patient???s estate. Current Coping/Education/Information Needs: Happy with hospital services Current Functional Ability: SBA walker Functional Status Prior to Admission: Independent cane/walker Home Environment: Lives alone, 4 stairs to enter home and lives on one level [address] [facility] [address] Social & Family Supports/Community Resources: sister, friend Extended Emergency Contact Information Primary Emergency Contact: aMria L Crain Relation: Friend Secondary Emergency Contact: Mona Samayoa [employer] Relation: Sibling Behavioral Health History: denies Other Pertinent/Service Specific Information: No Health/Prescription Coverage: Primary Insurance: MEDICARE Payor: MEDICARE / Plan: MEDICARE PART A & B / Product Type: *No Product type* / Secondary Insurance: N/A Prescription Coverage: Medicare D [facility] [place], [place] - [address] [facility] [address] [facility] [address] - [place], [place] - [address] 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 A letter describing our affiliations was reviewed with them and theywere educated about their right to choose where referrals are placed. Patient requests referral to [facility]. PHONE: [phone] FAX: [phone]. Expected date of discharge: 09/28/18. Referral routed to the Tip Scourer for matching with agency/vendor and to provide any required information. DME: walker/cane Community Resources: No Transportation: Sister Dialysis: n/a Anticipated Barriers to Discharge/Special Considerations: none Assessment: [facility] routed and orders pended. No other discharge needs identified at this time. Plan: A member of the Care Management team will continue to monitor progress, follow for continuity of care and assist with transition of care planning. Jessica Sauceda RN chair installer Pager: [phone] Plan of Care - Rah Verdin RN [...] ??? CHF (congestive heart failure) diag 2016 [facility] ??? Chronic lung disease sarcoidosis ??? Chronic [...] failure 'don't know if it's failure ??? 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 Mental health problem ??? Obstructive sleep apnea diag 2007 ??? Osteoma of ear canal ??? Vertigo balance prob,last fall early Jun. Past Surgical History: Procedure Laterality Date ??? PRO CYSTOSCOPY, INSERT URETERAL STENT Right 07/10/2018 CYSTO, STENT PLACEMENT (WRVU 2.82) performed by Viky Sears MD at [facility] ??? PRO CYSTOURETHROSCOPY, URETER CATHETER Right 07/10/2018 CYSTO, RETROGRADE, URETEROPYELOGRAPHY (WRVU 2.37) performed by Viky Sears MD at [facility] Patient has following SCHEDULED medications: ??? [...] ??? insulin lispro 1-4 Units Subcutaneous Q4H BERT Patient has following PRN medications: oxyCODONE OR oxyCODONE, loratadine, albuterol, sodium chloride 0.9 %, lidocaine, ondansetron OR ondansetron, bisacodyl, lidocaine-EPINEPHrine, BUpivacaine (PF), iohexol, Glucose 40% oral gel OR dextrose OR glucagon (human recombinant), belladonna-opium CPG GOAL OUTCOME EVALUATION: Goal: Skin Integrity/Wound Healing Patient will demonstrate the desired outcomes by discharge/transition of care. Outcome: Ongoing (Interventions Implemented as Appropriate) 09/27/18 0433 Skin Integrity Impairment, Risk/Actual (Adult) Skin Integrity/Wound Healing making progress toward outcome Problem: Patient Care Overview Goal: Plan of Care Review Outcome: Ongoing (Interventions Implemented as Appropriate) 09/26/18 22009/27/18 0433 Plan of Care Review Progress -- progress toward functional goals as expected Coping/Psychosocial Plan Of Care Reviewed With patient -- Goal: Individualization & Mutuality Outcome: Ongoing (Interventions Implemented as Appropriate) 09/27/18 0342 09/27/18 0433 Individualization Patient Specific Preferences -- None Patient [...] Handling Outcome: Ongoing (Interventions Implemented as Appropriate) 09/26/18219909/27/18 0400 Francois Fall Risk History of Falling 25 [...] Note ?? Patient Name: Blossom Samayoa : [id number] MR#: [id number] ?? Case Date: 09/26/2018 ?? Surgeon: Surgeon(s) [...] ureteral stent placed 6. Two 24 Fr North Pole catheters placed as nephrostomy tubes (more medial [...] renal urine ? eD-H Order Id number [id number] ? PATHOLOGY ORDER UPDATE ? 09/26/2018 3:35 PM Additional information: Additional Info ? Enter requested changes: bladder urine ? eD-H Order Id number [id number] ? Fluids: see anesthesia record ?? PRBCs: [...] removed. For each access, a 24 Fr Emani catheter was passed over the working Super Stiff guide wire into the renal pelvis under fluoroscopic guidance. Contrast was again instilled to ensure adequate placement. For each access, a 5 Fr Pollack catheter was inserted via the North Pole catheter to be used as a safety re-entry catheter. The Emani catheters were secured to the skin using two 0 silk sutures each. The guide wire was removed from the Emani and Pollack catheter combination. The remaining safety [...] Operative Note Patient Name: Blossom Samayoa : [id number] MR#: [id number] Case Date: 09/26/2018 Surgeon: Surgeon(s) and Role: [...] ureteral stent placed 6. Two 24 Fr North Pole catheters placed as nephrostomy tubes (more medial [...] pole renal urine eD-H Order Id number [id number] PATHOLOGY ORDER UPDATE 09/26/2018 3:35 PM Additional information: Additional Info Enter requested changes: bladder urine eD-H Order Id number [id number] Fluids: see anesthesia record PRBCs: none Urine [...] APRN [facility] [address] [place] [address] 03/23/2022 Appointment Radiology Hailey Mcclendon MD [facility] [address] [place] [address] 03/23/2022 Laboratory Appointment Lab 03/23/2022 Office Visit Gastroenterology Hailey Mcclendon MD [facility] R[place] 0375 05/23/2022 Procedure visit Maxillofacial Surgery Corby Montes MD [facility] [place] 0375 Scheduled Referrals Name Type Priority Associated [...] Results POCT Glucose (10/01/2018 12:06 PM EDT) athologist Signature POC Glucose 129 65 - 199 [facility] mg/dL [facility] Comment: Supplemental ranges: <140 mg/dL before meals <180 mg/dL all other times of the day Specimen Anatomical Collection Method Collection Time Receive d Time (Source) Location / / Volume Laterality Blood specimen 10/01/2018 12:06 9 (specimen) PM EDT 12:06 PM EDT Crow Galvin Jr., MD POINT OF CARE TEST ORDERABLE S Performing Organization Address City/State/[place] [address] XR PICC Placement Over [...] number below. ? Electronically signed by: Maciel GALLEGOS [facility] ([phone]), at 10/01/2018 11:38 AM Narrative 10/01/2018 11:38 AM EDT EXAMINATION: XR [...] For questions regarding this report, please contact [facility] number below. Electronically signed by: Maciel GALLEGOS [facility] ([phone]), at 10/01/2018 11:38 AM Crow Galvin Jr., MD IMG FLUORO ORDERABLES Place PICC Line: Contact Vascular Access Page [phone] Extremity to exclude: No restrictions; Is PICC [...] the planned procedu re. Hand Hygiene: The supervisor order takers did perform hand hygiene pr ior to line insertion. Catheter type: PICC Lot number: [id number] Procedure Technique: Skin was prepped with chlorhexidine. [...] ERABLES POCT Glucose (10/01/2018 7:52 AM EDT) P athologist Signature POC Glucose 155 65 - 199 [facility] mg/dL [facility] Comment: Supplemental ranges: <140 mg/dL before meals <180 mg/dL all other times of the day Specimen Anatomical Collection Method Collection Time Receive d Time (Source) Location / / Volume Laterality Blood specimen 10/01/2018 7:52 AM 019 7:52 (specimen) EDT AM EDT Crow Galvin Jr., MD POINT OF CARE TEST ORDERABLE S Performing Organization Address City/State/ZIP [place] [address] POCT Glucose (10/01/2018 4:58 AM EDT) athologist Signature POC Glucose 174 65 - 199 [place] mg/dL [facility] Comment: Supplemental ranges: <140 mg/dL before meals <180 mg/dL all other times of the day Specimen Anatomical Collection Method Collection Time Receive d Time (Source) Location / / Volume Laterality Blood specimen 10/01/2018 4:58 AM 019 4:58 (specimen) EDT AM EDT Crow Galvin Jr., MD POINT OF CARE TEST ORDERABLE S Performing Organization Address City/State/ZIP [place] [address] POCT Glucose (09/30/2018 11:29 PM EDT) athologist Signature POC Glucose 154 65 - 199 [place] mg/dL [facility] Comment: Supplemental ranges: <140 mg/dL before meals <180 mg/dL all other times of the day Specimen Anatomical Collection Method Collection Time Receive d Time (Source) Location / / Volume Laterality Blood specimen 09/30/2018 11:29 9 (specimen) PM EDT 11:29 PM EDT Crow Galvin Jr., MD POINT OF CARE TEST ORDERABLE S Performing Organization Address City/State/ZIP [place] [address] (ABNORMAL) POCT Glucose (09/30/2018 8:34 PM EDT) athologist Signature POC Glucose 203 (H) 65 - 199 [place] mg/dL [facility] Comment: Supplemental ranges: <140 mg/dL before meals <180 mg/dL all other times of the day Specimen Anatomical Collection Method Collection Time Receive d Time (Source) Location / / Volume Laterality Blood specimen 09/30/2018 8:34 PM 019 8:34 (specimen) EDT PM EDT Crow Galvin Jr., MD POINT OF CARE TEST ORDERABLE S Performing Organization Address City/State/ZIP Code Phon e Number [address] POCT Glucose (09/30/2018 4:43 PM EDT) athologist Signature POC Glucose 134 65 - 199 [place] mg/dL [facility] Comment: Supplemental ranges: <140 mg/dL before meals <180 mg/dL all other times of the day Specimen Anatomical Collection Method Collection Time Receive d Time (Source) Location / / Volume Laterality Blood specimen 09/30/2018 4:43 PM 019 4:43 (specimen) EDT PM EDT Crow Galvin Jr., MD POINT OF CARE TEST ORDERABLE S Performing Organization Address City/State/ZIP Code Phon e Number [address] POCT Glucose (09/30/2018 12:03 PM EDT) athologist Signature POC Glucose 173 65 - 199 [place] mg/dL [facility] Comment: Supplemental ranges: <140 mg/dL before meals <180 mg/dL all other times of the day Specimen Anatomical Collection Method Collection Time Receive d Time (Source) Location / / Volume Laterality Blood specimen 09/30/2018 12:03 9 (specimen) PM EDT 12:03 PM EDT Crow Galvin Jr., MD POINT OF CARE TEST ORDERABLE S Performing Organization Address City/State/ZIP Code Phon e Number [address] POCT Glucose (09/30/2018 7:23 AM EDT) athologist Signature POC Glucose 195 65 - 199 [place] mg/dL [facility] Comment: Supplemental ranges: <140 mg/dL before meals <180 mg/dL all other times of the day Specimen Anatomical Collection Method Collection Time Receive d Time (Source) Location / / Volume Laterality Blood specimen 09/30/2018 7:23 AM 019 7:23 (specimen) EDT AM EDT Crow Galvin Jr., MD POINT OF CARE TEST ORDERABLE S Performing Organization Address City/State/ZIP [place] [address] (ABNORMAL) Differential, Automated (09/30/2018 5:18 AM EDT) P athologist Signature Neutrophils % 58.9 % [facility] Neutr Abs (ANC) 6.10 1.70 - [facility] 6.10 [facility] x10(3)/[facility] LABORATORY Lymphocytes % 30.5 % [facility] Lymphocytes Abs 3.2 0.9 - 3.2 [facility] x10(3)/[facility] LABORATORY Monocytes % 6.9 % [facility] Monocyte Abs 0.7 0.3 - 0.9 [facility] x10(3)/[facility] LABORATORY Eosinophils % 2.8 % [facility] Eosinophils Abs 0.3 0.0 - 0.4 [facility] x10(3)/[facility] LABORATORY Basophils % 0.3 % [facility] Basophils Abs 0.0 0.0 - 0.1 [facility] x10(3)/[facility] LABORATORY Immature Gran % 0.60 % [facility] Comment: Immature granulocytes(IG's)percentage an d absolute count will include metamyelocytes, myelocytes, and promyelo cytes. Blood smears from CBCs yielding IG's will be scanned manually for concor dance. If this scan disagrees with the automated IG or if promyelocytes are not ed, a manual differential will be performed. Irina Gran Abs 0.06 (H) 0.00 - 0.04 x10(3)/[facility] LABORATORY Specimen Anatomical Collection Method Collection Time Receive d Time (Source) Location / / Volume Laterality Blood specimen 09/30/2018 5:18 AM 019 5:25 (specimen) EDT AM EDT Resulting Agency Comment Spec In Lab Leon Razo MD HEMATOLOGY ORDERABLES Performing Organization Address City/State/Z[place] [address] (ABNORMAL) Hemogram (09/30/2018 5:18 AM EDT) Analysis Performed At Patho logist Time Signature WBC 10.3 (H) 4.0 - 9.5 [facility] [place] x10(3)/[facility] LABORATORY RBC 3.35 (L) 4.00 - [facility] 5.21 [facility] x10(6)/[facility] LABORATORY Hemoglobin 10.1 (L) 11.7 - [facility] 15.[facility] gm/dL [facility] Hematocrit 32.7 (L) 35.7 - [facility] 45.8 % [facility] MCV 97.6 (H) 82.6 - [facility] 94.4 [facility] LABORATORY MCH 30.1 27.1 - [place] 32.0 pg [facility] MCHC 30.9 (L) 31.7 - [facility] 35.0 gm/dL [facility] Platelets 186 145 - 357 [facility] x10(3)/[facility] LABORATORY RDWSD 45.1 37.0 - [facility] 46.0 [facility] LABORATORY RDWCV 12.6 11.5 - [facility] 14.1 % [facility] MPV 11.0 7.6 - 12.9 [facility] nRBC % Auto 0.0 % [facility] nRBC Abs Auto 0.000 0.000 - [facility] 0.000 [facility] x10(3)/[facility] LABORATORY Specimen Anatomical Collection Method Collection Time Receive d Time (Source) Location / / Volume Laterality Blood specimen 09/30/2018 5:18 AM 019 5:25 (specimen) EDT AM EDT Resulting Agency Comment Spec In Lab Leon Razo MD HEMATOLOGY ORDERABLES Performing Organization Address City/State/ZIP [place] [address] (ABNORMAL) Basic Metabolic Panel (non-fasting) (09/30/2018 5:18 AM EDT) P athologist Signature Glucose Lvl 176 65 - 199 [facility] mg/dL [facility] Comment: Diabetes: >=200 mg/dL plus symp toms BUN 13 8 - 18 mg/dL [facility] Creatinine 0.83 0.70 - 1.20 mg/dL [facility] Sodium 138 135 - 145 mmol/L [facility] Potassium 3.9 3.5 - 5.0 mmol/L [facility] Comment: Please note: ??Patients with WBC >100,00 0 may have falsely elevated Potassium levels. ??For accurate Potassium quantif ication in these patients send serum separator tube (gold top) for subsequent determinations. ??Contact the Clinical Chemistry Laboratory if there are any qu estions. Chloride 101 98 - 107 mmol/L [facility] CO2 23 22 - 31 mmol/L [facility] Anion Gap 14 5 - 15 mmol/L [facility] Calcium 10.7 (H) 8.5 - 10.5 mg/dL [facility] Estimated GFR 78 >=60 mL/min/1.73 m?? [facility] Comment: The eGFR was calculated using the CKD-EP I equation. As with all creatinine based estimates of kidney function, eGFR values calculated with the CKD-EPI equation are not accurate in patients wi th acute kidney failure, extremes of body mass or the acutely ill. [email or web address] TISHOMINGOnkf eGFR 90 >=60 mL/min/1.73 m?? [facility] Comment: The eGFR was calculated using the CKD-EP I equation. As with all creatinine based estimates of kidney function, eGFR values calculated with the CKD-EPI equation are not accurate in patients wi th acute kidney failure, extremes of body mass or the acutely ill. http://[employer]/DHMCnkf Specimen Anatomical Collection Method Collection Time Receive d Time (Source) Location / / Volume Laterality Blood specimen 09/30/2018 5:18 AM 019 5:25 (specimen) EDT AM EDT Resulting Agency Comment Spec In Lab Crow Galvin Jr., MD CHEMISTRY ORDERABLES Performing Organization Address City/[facility]/ZIP Code Phon e Number [address] POCT Glucose (09/30/2018 4:26 AM EDT) P athologist Signature POC Glucose 141 65 - 199 [place] mg/dL [facility] Comment: Supplemental ranges: <140 mg/dL before meals <180 mg/dL all other times of the day Specimen Anatomical Collection Method Collection Time Receive d Time (Source) Location / / Volume Laterality Blood specimen 09/30/2018 4:26 AM 019 4:26 (specimen) EDT AM EDT Crow Galvin Jr., MD POINT OF CARE TEST ORDERABLE S Performing Organization Address City/[facility]/ZIP Code Phon e Number [address] POCT Glucose (09/29/2018 11:09 PM EDT) P athologist Signature POC Glucose 161 65 - 199 [place] mg/dL [facility] Comment: Supplemental ranges: <140 mg/dL before meals <180 mg/dL all other times of the day Specimen Anatomical Collection Method Collection Time Receive d Time (Source) Location / / Volume Laterality Blood specimen 09/29/2018 11:09 9 (specimen) PM EDT 11:09 PM EDT Crow Galvin Jr., MD POINT OF CARE TEST ORDERABLE S Performing Organization Address City/[facility]/ZIP Code Phon e Number [address] (ABNORMAL) POCT Glucose (09/29/2018 8:03 PM EDT) P athologist Signature POC Glucose 269 (H) 65 - 199 [place] mg/dL [facility] Comment: Supplemental ranges: <140 mg/dL before meals <180 mg/dL all other times of the day Specimen Anatomical Collection Method Collection Time Receive d Time (Source) Location / / Volume Laterality Blood specimen 09/29/2018 8:03 PM 019 8:03 (specimen) EDT PM EDT Crow Galvin Jr., MD POINT OF CARE TEST ORDERABLE S Performing Organization Address City/State/ZIP [place] [address] POCT Glucose (09/29/2018 4:50 PM EDT) athologist Signature POC Glucose 169 65 - 199 [place] mg/dL [facility] Comment: Supplemental ranges: <140 mg/dL before meals <180 mg/dL all other times of the day Specimen Anatomical Collection Method Collection Time Receive d Time (Source) Location / / Volume Laterality Blood specimen 09/29/2018 4:50 PM 019 4:50 (specimen) EDT PM EDT Crow Galvin Jr., MD POINT OF CARE TEST ORDERDANTE S Performing Organization Address City/State/ZIP Code Phon e Number [address] POCT Glucose (09/29/2018 12:23 PM EDT) athologist Signature POC Glucose 151 65 - 199 [place] mg/dL [facility] Comment: Supplemental ranges: <140 mg/dL before meals <180 mg/dL all other times of the day Specimen Anatomical Collection Method Collection Time Receive d Time (Source) Location / / Volume Laterality Blood specimen 09/29/2018 12:23 9 (specimen) PM EDT 12:23 PM EDT Crow Galvin Jr., MD POINT OF CARE TEST ORDERABLE S Performing Organization Address City/State/ZIP Code Phon e Number [address] (ABNORMAL) POCT Glucose (09/29/2018 10:50 AM EDT) athologist Signature POC Glucose 206 (H) 65 - 199 [place] mg/dL [facility] Comment: Supplemental ranges: <140 mg/dL before meals <180 mg/dL all other times of the day Specimen Anatomical Collection Method Collection Time Receive d Time (Source) Location / / Volume Laterality Blood specimen 09/29/2018 10:50 9 (specimen) AM EDT 10:50 AM EDT Crow Galvin Jr., MD POINT OF CARE TEST ORDERABLE S Performing Organization Address City/State/ZIP [place] [address] (ABNORMAL) POCT Glucose (09/29/2018 8:46 AM EDT) P athologist Signature POC Glucose 260 (H) 65 - 199 [place] mg/dL [facility] Comment: Supplemental ranges: <140 mg/dL before meals <180 mg/dL all other times of the day Specimen Anatomical Collection Method Collection Time Receive d Time (Source) Location / / Volume Laterality Blood specimen 09/29/2018 8:46 AM 8:46 (specimen) EDT AM EDT Crow Galvin Jr., MD POINT OF CARE TEST ORDERDANTE S Performing Organization Address City/State/ZIP [place] [address] Blood culture (09/29/2018 8:24 AM EDT) Patholo gist Method Time Signature Blood Culture No growth [place] at 5 days. [facility] Specimen Anatomical Collection Method Collection Time Receive d Time (Source) Location / / Volume Laterality Blood specimen 09/29/2018 8:24 AM 019 9:20 (specimen) EDT AM EDT Comment: RH Resulting Agency Comment Spec In Lab Crow Galvin Jr., MD MICROBIOLOGY - BLOOD ORDERAB LES Performing Organization Address City/State/ZIP [place] [address] Blood culture (09/29/2018 8:19 AM EDT) Patholo gist Method Time Signature Blood Culture No growth [place] AND[place] at 5 days. [facility] Specimen Anatomical Collection Method Collection Time Receive d Time (Source) Location / / Volume Laterality Blood specimen 09/29/2018 8:19 AM 019 9:19 (specimen) EDT AM EDT Comment: LH Resulting Agency Comment Spec In Lab Crow Galvin Jr., MD MICROBIOLOGY - BLOOD ORDERAB LES Performing Organization Address City/State/ZIP [place] [address] (ABNORMAL) Differential, Automated (09/29/2018 5:50 AM EDT) [facility] Method Time Signature Neutrophils % 67.4 % [facility] Neutr Abs (ANC) 6.38 (H) 1.70 - [facility] 6.10 [facility] x10(3)/[facility] LABORATORY Lymphocytes % 21.4 % [facility] Lymphocytes Abs 2.0 0.9 - 3.2 [facility] x10(3)/[facility] LABORATORY Monocytes % 8.6 % [facility] Monocyte Abs 0.8 0.3 - 0.9 [facility] x10(3)/[facility] LABORATORY Eosinophils % 2.0 % [facility] Eosinophils Abs 0.2 0.0 - 0.4 [facility] x10(3)/[facility] LABORATORY Basophils % 0.1 % [facility] Basophils Abs 0.0 0.0 - 0.1 [facility] x10(3)/[facility] LABORATORY Immature Gran % 0.50 % [facility] Comment: Immature granulocytes(IG's)percentage an d absolute count will include metamyelocytes, myelocytes, and promyelo cytes. Blood smears from CBCs yielding IG's will be scanned manually for concor dance. If this scan disagrees with the automated IG or if promyelocytes are not ed, a manual differential will be performed. Irina Gran Abs 0.05 (H) 0.00 - 0.04 x10(3)/[facility] LABORATORY Specimen Anatomical Collection Method Collection Time Receive d Time (Source) Location / / Volume Laterality Blood specimen 09/29/2018 5:50 AM 6:02 (specimen) EDT AM EDT Resulting Agency Comment Spec In Lab Leon Razo MD HEMATOLOGY ORDERABLES Performing Organization Address City/State/ZIP [place] [address] (ABNORMAL) Hemogram (09/29/2018 5:50 AM EDT) Analysis Performed At Patho logist Time Signature WBC 9.5 4.0 - 9.5 [facility](3[facility] LABORATORY RBC 2.76 (L) 4.00 - [place] 5.21 [facility] x10(6)/[facility] LABORATORY Hemoglobin 8.5 (L) 11.7 - [facility] 15.5 gm/dL [facility] Hematocrit 26.9 (L) 35.7 - [facility] 45.8 % [facility] MCV 97.5 (H) 82.6 - [facility] 94.4 [facility] LABORATORY MCH 30.8 27.1 - [place] 32.0 pg [facility] MCHC 31.6 (L) 31.7 - [facility] 35.0 gm/dL [facility] Platelets 148 145 - 357 [facility] x10(3)/[facility] LABORATORY RDWSD 45.6 37.0 - [facility] 46.0 [facility] LABORATORY RDWCV 12.8 11.5 - [facility] 14.1 % [facility] LABORATORY MPV 10.9 7.6 - 12.9 [facility] LABORATORY nRBC % Auto 0.0 % [facility] nRBC Abs Auto 0.000 0.000 - [facility] 0.000 [facility] x10(3)/[facility] LABORATORY Specimen Anatomical Collection Method Collection Time Receive d Time (Source) Location / / Volume Laterality Blood specimen 09/29/2018 5:50 AM 019 6:02 (specimen) EDT AM EDT Resulting Agency Comment Spec In Lab Leon Razo MD HEMATOLOGY ORDERABLES Performing Organization Address City/State/ZIP [place] [address] Basic Metabolic Panel (non-fasting) (09/29/2018 5:50 AM EDT) P athologist Signature Glucose Lvl 187 65 - 199 [facility] mg/dL [facility] Comment: Diabetes: >=200 mg/dL plus symp toms BUN 13 8 - 18 mg/dL [facility] Creatinine 0.86 0.70 - 1.20 mg/dL [facility]OR[facility]ORY Sodium 138 135 - 145 mmol/L [facility] Potassium 3.7 3.5 - 5.0 mmol/L [facility] Comment: Please note: ??Patients with WBC >100,00 0 may have falsely elevated Potassium levels. ??For accurate Potassium quantif ication in these patients send serum separator tube (gold top) for subsequent determinations. ??Contact the Clinical Chemistry Laboratory if there are any qu estions. Chloride 105 98 - 107 mmol/L [facility] CO2 23 22 - 31 mmol/L [facility] Anion Gap 10 5 - 15 mmol/L [facility] Calcium 10.5 8.5 - 10.5 mg/dL [facility] [facility] Estimated GFR 74 >=60 mL/min/1.73 m?? [facility] Comment: The eGFR was calculated using the CKD-EP I equation. As with all creatinine based estimates of kidney function, eGFR values calculated with the CKD-EPI equation are not accurate in patients wi th acute kidney failure, extremes of body mass or the acutely ill. [email or web address] T[facility]OMINGOnk[facility] eGFR 86 >=60 mL/min/1.73 m?? [facility] Comment: The eGFR was calculated using the CKD-EP I equation. As with all creatinine based estimates of kidney function, eGFR values calculated with the CKD-EPI equation are not accurate in patients wi th acute kidney failure, extremes of body mass or the acutely ill. [email or web address] Specimen Anatomical Collection Method Collection Time Receive d Time (Source) Location / / Volume Laterality Blood specimen 09/29/2018 5:50 AM 019 6:02 (specimen) EDT AM EDT Resulting Agency Comment Spec In Lab Crow Galvin Jr., MD CHEMISTRY ORDERABLES Performing Organization Address City/[facility]/ZIP [place] [address] (ABNORMAL) POCT Glucose (09/29/2018 3:57 AM EDT) athologist Signature POC Glucose 209 (H) 65 - 199 [facility] Comment: Supplemental ranges: <140 mg/dL before meals <180 mg/dL all other times of the day Specimen Anatomical Collection Method Collection Time Receive d Time (Source) Location / / Volume Laterality Blood specimen 09/29/2018 3:57 AM 019 3:57 (specimen) EDT AM EDT Crow Galvin Jr., MD POINT OF CARE TEST ORDERABLE S Performing Organization Address City/[facility]/ZIP [place] [address] (ABNORMAL) POCT Glucose (09/29/2018 12:27 AM EST) athologist Signature POC Glucose 219 (H) 65 - 199 [facility]dL [facility] Comment: Supplemental ranges: <140 mg/dL before meals <180 mg/dL all other times of the day Specimen Anatomical Collection Method Collection Time Receive d Time (Source) Location / / Volume Laterality Blood specimen 09/29/2018 12:27 9 (specimen) AM EST 12:27 AM EST Crow Galvin Jr., MD POINT OF CARE TEST ORDERABLE S Performing Organization Address City/[facility]/ZIP [place] [address] (ABNORMAL) POCT Glucose (09/28/2018 8:35 PM EST) P athologist Signature POC Glucose 253 (H) 65 - 199 [facility] Comment: Supplemental ranges: <140 mg/dL before meals <180 mg/dL all other times of the day Specimen Anatomical Collection Method Collection Time Receive d Time (Source) Location / / Volume Laterality Blood specimen 09/28/2018 8:35 PM 019 8:35 (specimen) EST PM EST Crow Galvin Jr., MD POINT OF CARE TEST ORDERABLE S Performing Organization Address City/State/ZIP [place] [address] POCT Glucose (09/28/2018 4:28 PM EST) athologist Signature POC Glucose 120 65 - 199 [place] mg/dL [facility] Comment: Supplemental ranges: <140 mg/dL before meals <180 mg/dL all other times of the day Specimen Anatomical Collection Method Collection Time Receive d Time (Source) Location / / Volume Laterality Blood specimen 09/28/2018 4:28 PM 019 4:28 (specimen) EST PM EST Crow Galvin Jr., MD POINT OF CARE TEST ORDERABLE S Performing Organization Address City/State/ZIP [place] [address] POCT Glucose (09/28/2018 1:52 PM EST) athologist Signature POC Glucose 189 65 - 199 [place] mg/dL [facility] Comment: Supplemental ranges: <140 mg/dL before meals <180 mg/dL all other times of the day Specimen Anatomical Collection Method Collection Time Receive d Time (Source) Location / / Volume Laterality Blood specimen 09/28/2018 1:52 PM 019 1:52 (specimen) EST PM EST Crow Galvin Jr., MD POINT OF CARE TEST ORDERABLE S Performing Organization Address City/State/ZIP [place] [address] (ABNORMAL) POCT Glucose (09/28/2018 11:49 AM EST) athologist Signature POC Glucose 256 (H) 65 - 199 [place] mg/dL [facility] Comment: Supplemental ranges: <140 mg/dL before meals <180 mg/dL all other times of the day Specimen Anatomical Collection Method Collection Time Receive d Time (Source) Location / / Volume Laterality Blood specimen 09/28/2018 11:49 9 (specimen) AM EST 11:49 AM EST Crow Galvin Jr., MD POINT OF CARE TEST ORDERABLE S Performing Organization Address City/State/ZIP Code Phon e Number [place] [id number] XR Chest PA & [...] (ABNORMAL) POCT Glucose (09/28/2018 8:05 AM EST) P athologist Signature POC Glucose 212 (H) 65 - 199 [facility] Comment: Supplemental ranges: <140 mg/dL before meals <180 mg/dL all other times of the day Specimen Anatomical Collection Method Collection Time Receive d Time (Source) Location / / Volume Laterality Blood specimen 09/28/2018 8:05 AM 019 8:05 (specimen) EST AM EST Crow Galvin Jr., MD POINT OF CARE TEST ORDERABLE S Performing Organization Address City/State/ZIP [place] [address] (ABNORMAL) Differential, Automated (09/28/2018 2:01 AM EST) Patholo gist Method Time Signature Neutrophils % 75.6 % [facility] Neutr Abs (ANC) 8.83 (H) 1.70 - [facility] 6.10 [facility] x10(3)/[facility] LABORATORY Lymphocytes % 14.0 % [facility] Lymphocytes Abs 1.6 0.9 - 3.2 [facility] x10(3)/[facility] LABORATORY Monocytes % 9.2 % [facility] Monocyte Abs 1.1 (H) 0.3 - 0.9 [facility] x10(3)/[facility] LABORATORY Eosinophils % 0.6 % [facility] Eosinophils Abs 0.1 0.0 - 0.4 [facility] x10(3)/[facility] LABORATORY Basophils % 0.2 % [facility] Basophils Abs 0.0 0.0 - 0.1 [facility] x10(3)/[facility] LABORATORY Immature Gran % 0.40 % [facility] Comment: Immature granulocytes(IG's)percentage an d absolute count will include metamyelocytes, myelocytes, and promyelo cytes. Blood smears from CBCs yielding IG's will be scanned manually for maulik farooq. If this scan disagrees with the automated IG or if promyelocytes are not ed, a manual differential will be performed. Irina Gran Abs 0.05 (H) 0.00 - 0.04 x10(3)/[facility] LABORATORY Specimen Anatomical Collection Method Collection Time Receive d Time (Source) Location / / Volume Laterality Blood specimen 09/28/2018 2:01 AM 019 2:15 (specimen) EST AM EST Resulting Agency Comment Spec In Lab Marquis Christopher MD HEMATOLOGY ORDERABLES Performing Organization Address City/State/ZIP [place] [address] (ABNORMAL) Hemogram (09/28/2018 2:01 AM EST) Analysis Performed At Patho logist Time Signature WBC 11.7 (H) 4.0 - 9.5 [facility] x10(3)/[facility] LABORATORY RBC 2.99 (L) 4.00 - [facility] [place] 5.21 [facility] x10(6)/[facility] LABORATORY Hemoglobin 9.1 (L) 11.7 - [facility] 15.5 gm/dL [facility] Hematocrit 28.3 (L) 35.7 - [facility] 45.8 % [facility] MCV 94.6 (H) 82.6 - [facility] 94.4 [facility] LABORATORY MCH 30.4 27.1 - [facility] [place] 32.0 pg [facility] MCHC 32.2 31.7 - [facility] [place] 35.0 gm/dL [facility] Platelets 147 145 - 357 [facility] x10(3)/[facility] LABORATORY RDWSD 44.6 37.0 - [facility] [place] 46.0 [facility] LABORATORY RDWCV 12.8 11.5 - [facility] [place] 14.1 % [facility]ATORY MPV 10.3 7.6 - 12.9 [facility] LABORATORY nRBC % Auto 0.0 % [facility] nRBC Abs Auto 0.000 0.000 - [facility] [employer] 0.000 [facility] x10(3)/[facility] LABORATORY Specimen Anatomical Collection Method Collection Time Receive d Time (Source) Location / / Volume Laterality Blood specimen 09/28/2018 2:01 AM 019 2:15 (specimen) EST AM EST Resulting Agency Comment Spec In Lab Marquis Christopher MD HEMATOLOGY ORDERABLES Performing Organization Address City/State/ZIP [place] [address] (ABNORMAL) Basic Metabolic Panel (non-fasting) (09/28/2018 2:01 AM EST) athologist Signature Glucose Lvl 248 (H) 65 - 199 [facility] mg/dL [facility] Comment: Diabetes: >=200 mg/dL plus symp toms BUN 19 (H) 8 - 18 mg/dL [facility] Creatinine 1.06 0.70 - 1.20 mg/dL [facility]ORY Sodium 134 (L) 135 - 145 mmol/L [facility] Potassium 3.9 3.5 - 5.0 mmol/L [facility] Comment: Please note: ??Patients with WBC >100,00 0 may have falsely elevated Potassium levels. ??For accurate Potassium quantif ication in these patients send serum separator tube (gold top) for subsequent determinations. ??Contact the Clinical Chemistry Laboratory if there are any qu estions. Chloride 103 98 - 107 mmol/L [facility] CO2 20 (L) 22 - 31 mmol/L [facility] Anion Gap 11 5 - 15 mmol/L [facility]ORY Calcium 9.6 8.5 - 10.5 mg/dL [facility] Estimated GFR 58 (L) >=60 mL/min/1.73 m?? [facility] Comment: The eGFR was calculated using the CKD-EP I equation. As with all creatinine based estimates of kidney function, eGFR values calculated with the CKD-EPI equation are not accurate in patients wi th acute kidney failure, extremes of body mass or the acutely ill. [email or web address] T[facility]INGOnkf eGFR 67 >=60 mL/min/1.73 m?? [facility] Comment: The eGFR was calculated using the CKD-EP I equation. As with all creatinine based estimates of kidney function, eGFR values calculated with the CKD-EPI equation are not accurate in patients wi th acute kidney failure, extremes of body mass or the acutely ill. [email or web address] Specimen Anatomical Collection Method Collection Time Receive d Time (Source) Location / / Volume Laterality Blood specimen 09/28/2018 2:01 AM 019 2:15 (specimen) EST AM EST Resulting Agency Comment Spec In Lab Crow Galvin Jr., MD CHEMISTRY ORDERABLES Performing Organization Address City/[facility] Phon e Number [address] (ABNORMAL) POCT Glucose (09/27/2018 7:56 PM EST) P athologist Signature POC Glucose 228 (H) 65 - 199 [facility] mg/dL [facility] Comment: Supplemental ranges: <140 mg/dL before meals <180 mg/dL all other times of the day Specimen Anatomical Collection Method Collection Time Receive d Time (Source) Location / / Volume Laterality Blood specimen 09/27/2018 7:56 PM 019 7:56 (specimen) EST PM EST Crow Galvin Jr., MD POINT OF CARE TEST ORDERABLE S Performing Organization Address City/[facility]/ZIP [facility] [place] [address] Urine Hold (09/27/2018 4:33 PM EST) P athologist Signature Urine Hold Sample in [facility]. [facility] Specimen Anatomical Collection Method Collection Time Receive d Time (Source) Location / / Volume Laterality Urine specimen Urine / Unknown 09/27/2018 4:33 PM 02/2019 5:06 (specimen) EST PM EST Comment: MUST BE COLLECTED PRIOR TO GIVI NG THE CEFTRIAXONE Linda Rodriguez MD URINE ORDERABLES Performing Organization Address City/[facility]/ZIP [facility] [place] [address] (ABNORMAL) Urine culture Indwelling Catheter Urine (09/27/2018 4:33 PM EST) [facility] Method Time Signature Urine Culture 1,000-9,000 [place] cfu/ml Gram [facility] Rods (A) LABORATORY Organism Gram [facility] () [facility] Specimen (Source) Anatomical Collection Method [...] Organization Address City/State/ZIP [place] [address] [facility] [address] (ABNORMAL) Blood culture (09/27/2018 4:32 PM EST) [facility] [employer] Method Time Signature Blood Culture Proteus mirabilis isolated [place] Isolate saved. If future testing is required, contact the Microbiology [employer] [place] Button Machine Operator. [facility] Gram Stain Growth detected in anaerobic bottle. [place] Anaerobic Gram Negative Rods seen [facility] O[facility] Results called to and read back by Varun Rivera in [facility] ??09/28/18 09:36:24 [facility] Organism Proteus [place] mirabilis (A) [facility] Organism Gram Negative [place] Rods (A) [facility] Specimen Anatomical Collection Method Collection Time [...] - BLOOD ORDERAB LES Performing Organization Address City/[facility]/ZIP Code Phon e Number [address] Blood culture (09/27/2018 4:32 PM EST) Patholo gist Method Time Signature Blood Culture No growth [facility] at 5 days. [facility] Specimen Anatomical Collection Method Collection Time Receive d Time (Source) Location / / Volume Laterality Blood specimen 09/27/2018 4:32 PM 019 5:08 (specimen) EST PM EST Resulting Agency Comment Spec In Lab Crow Galvin Jr., MD MICROBIOLOGY - BLOOD ORDERAB LES Performing Organization Address City/[facility]/ZIP [place] [address] POCT Glucose (09/27/2018 3:55 PM EST) P athologist Signature POC Glucose 193 65 - 199 [facility] mg/dL [facility] Comment: Supplemental ranges: <140 mg/dL before meals <180 mg/dL all other times of the day Specimen Anatomical Collection Method Collection Time Receive d Time (Source) Location / / Volume Laterality Blood specimen 09/27/2018 3:55 PM 019 3:55 (specimen) EST PM EST Crow Galvin Jr., MD POINT OF CARE TEST ORDERABLE S Performing Organization Address City/[facility]/ZIP Code Phon e Number [address] POCT Glucose (09/27/2018 11:19 AM EST) athologist Signature POC Glucose 183 65 - 199 [place] mg/dL [facility] Comment: Supplemental ranges: <140 mg/dL before meals <180 mg/dL all other times of the day Specimen Anatomical Collection Method Collection Time Receive d Time (Source) Location / / Volume Laterality Blood specimen 09/27/2018 11:19 9 (specimen) AM EST 11:19 AM EST Crow Galvin Jr., MD POINT OF CARE TEST ORDERABLE S Performing Organization Address City/[facility]/ZIP [place] [address] (ABNORMAL) POCT Glucose (09/27/2018 7:25 AM EST) athologist Signature POC Glucose 231 (H) 65 - 199 [facility]dL [facility] Comment: Supplemental ranges: <140 mg/dL before meals <180 mg/dL all other times of the day Specimen Anatomical Collection Method Collection Time Receive d Time (Source) Location / / Volume Laterality Blood specimen 09/27/2018 7:25 AM 019 7:25 (specimen) EST AM EST Crow Galvin Jr., MD POINT OF CARE TEST ORDERABLE S Performing Organization Address City/[facility]/ZIP [place] [address] Abdomen & Pelvis [...] POC Glucose 229 (H) 65 - 199 [facility]/dL [facility] Comment: Supplemental ranges: <140 mg/dL before meals <180 mg/dL all other times of the day Specimen Anatomical Collection Method Collection Time Receive d Time (Source) Location / / Volume Laterality Blood specimen 09/27/2018 3:49 AM 019 3:49 (specimen) EST AM EST Crow Galvin Jr., MD POINT OF CARE TEST ORDERABLE S Performing Organization Address City/State/ZIP [place] [address] (ABNORMAL) Differential, Automated (09/27/2018 1:49 AM EST) Patholo gist Method Time Signature Neutrophils % 89.9 % [facility] Neutr Abs (ANC) 17.95 (H) 1.70 - [facility] 6.10 [facility] x10(3)/[facility] LABORATORY Lymphocytes % 4.8 % [facility] Lymphocytes Abs 1.0 0.9 - 3.2 [facility] x10(3)/[facility] LABORATORY Monocytes % 4.3 % [facility] Monocyte Abs 0.9 0.3 - 0.9 [facility] x10(3)/[facility] LABORATORY Eosinophils % 0.1 % [facility] Eosinophils Abs 0.0 0.0 - 0.4 [facility] x10(3)/[facility] LABORATORY Basophils % 0.1 % [facility] Basophils Abs 0.0 0.0 - 0.1 [facility] x10(3)/[facility] LABORATORY Immature Gran % 0.80 % [facility] Comment: Immature granulocytes(IG's)percentage an d absolute count will include metamyelocytes, myelocytes, and promyelo cytes. Blood smears from CBCs yielding IG's will be scanned manually for concor dance. If this scan disagrees with the automated IG or if promyelocytes are not ed, a manual differential will be performed. Irina Gran Abs 0.16 (H) 0.00 - 0.04 x10(3)/[facility] LABORATORY Specimen Anatomical Collection Method Collection Time Receive d Time (Source) Location / / Volume Laterality Blood specimen 09/27/2018 1:49 AM 019 2:54 (specimen) EST AM EST Resulting Agency Comment Spec In Lab Linda Rodriguez MD HEMATOLOGY ORDERABLES Performing Organization Address City/State/ZIP [place] [address] (ABNORMAL) Hemogram (09/27/2018 1:49 AM EST) Analysis Performed At Patho logist Time Signature WBC 20.0 (H) 4.0 - 9.5 [facility] x10(3)/[facility] LABORATORY RBC 3.28 (L) 4.00 - [facility] 5.21 [facility] x10(6)/[facility] LABORATORY Hemoglobin 10.1 (L) 11.7 - [facility] 15.5 gm/dL [facility]ORY Hematocrit 32.0 (L) 35.7 - [facility] 45.8 % [facility]ATORY MCV 97.6 (H) 82.6 - [facility] 94.4 [facility] LABORATORY MCH 30.8 27.1 - [facility] [place] 32.0 pg [facility]ORY MCHC 31.6 (L) 31.7 - [facility] 35.0 gm/dL [facility] Platelets 200 145 - 357 [facility] x10(3)/[facility] LABORATORY RDWSD 46.9 (H) 37.0 - [facility] 46.0 [facility] LABORATORY RDWCV 13.1 11.5 - [facility] 14.1 % [facility] LABORATORY MPV 10.5 7.6 - 12.9 [facility] LABORATORY nRBC % Auto 0.0 % [facility] nRBC Abs Auto 0.000 0.000 - [facility] [employer] 0.000 [facility] x10(3)/[facility] LABORATORY Specimen Anatomical Collection Method Collection Time Receive d Time (Source) Location / / Volume Laterality Blood specimen 09/27/2018 1:49 AM 019 2:54 (specimen) EST AM EST Resulting Agency Comment Spec In Lab Linda Rodriguez MD HEMATOLOGY ORDERABLES Performing Organization Address City/State/ZIP [place] [address] PTH (09/27/2018 1:49 AM EST) P athologist Signature PTH 49 15 - 65 [facility] pg/mL [facility] LABORATORY Specimen Anatomical Collection Method Collection Time Receive d Time (Source) Location / / Volume Laterality Blood specimen 09/27/2018 1:49 AM 019 2:54 (specimen) EST AM EST Resulting Agency Comment Spec In Lab Crow Galvin Jr., MD CHEMISTRY ORDERABLES Performing Organization Address City/[facility]/ZIP [place] [address] (ABNORMAL) Basic Metabolic Panel (non-fasting) (09/27/2018 1:49 AM EST) P athologist Signature Glucose Lvl 206 (H) 65 - 199 [facility] mg/dL [facility]ORY Comment: Diabetes: >=200 mg/dL plus symp toms BUN 15 8 - 18 mg/dL [facility] LABORATORY Creatinine 1.58 (H) 0.70 - 1.20 mg/dL [facility] LABORATORY Sodium 134 (L) 135 - 145 mmol/L [facility]ORY Potassium 4.0 3.5 - 5.0 mmol/L [facility] Comment: Please note: ??Patients with WBC >100,00 0 may have falsely elevated Potassium levels. ??For accurate Potassium quantif ication in these patients send serum separator tube (gold top) for subsequent determinations. ??Contact the Clinical Chemistry Laboratory if there are any qu estions. Chloride 100 98 - 107 mmol/L [facility] CO2 20 (L) 22 - 31 mmol/L [facility] Anion Gap 14 5 - 15 mmol/L [facility] Calcium 9.7 8.5 - 10.5 mg/dL [facility] Estimated GFR 36 (L) >=60 mL/min/1.73 m?? [facility] Comment: The eGFR was calculated using the CKD-EP I equation. As with all creatinine based estimates of kidney function, eGFR values calculated with the CKD-EPI equation are not accurate in patients wi th acute kidney failure, extremes of body mass or the acutely ill. [email or web address] eGFR 41 (L) >=60 mL/min/1.73 m?? [facility] Comment: The eGFR was calculated using the CKD-EP I equation. As with all creatinine based estimates of kidney function, eGFR values calculated with the CKD-EPI equation are not accurate in patients wi th acute kidney failure, extremes of body mass or the acutely ill. [email or web address] TISHOMINGOnkf Specimen Anatomical Collection Method Collection Time Receive d Time (Source) Location / / Volume Laterality Blood specimen 09/27/2018 1:49 AM 019 2:54 (specimen) EST AM EST Resulting Agency Comment Spec In Lab Crow Galvin Jr., MD CHEMISTRY ORDERABLES Performing Organization Address City/[facility]/ZIP [place] [address] (ABNORMAL) POCT Glucose (09/26/2018 11:35 PM EST) P athologist Signature POC Glucose 204 (H) 65 - 199 [facility] mg/dL [facility] Comment: Supplemental ranges: <140 mg/dL before meals <180 mg/dL all other times of the day Specimen Anatomical Collection Method Collection Time Receive d Time (Source) Location / / Volume Laterality Blood specimen 09/26/2018 11:35 9 (specimen) PM EST 11:35 PM EST Crow Galvin Jr., MD POINT OF CARE TEST ORDERABLE S Performing Organization Address City/[facility]/ZIP [place] [address] EKG 12 Lead (09/26/2018 7:33 PM EST) Component Value Ref Range Test Analysis Performed Pathologis t Method Time At Signature Ventricular rate 102 BPM MUSE SYSTEM Atrial Rate 102 BPM MUSE SYSTEM P-R Interval 154 ms MUSE SYSTEM QRS Duration 134 ms MUSE SYSTEM Q-T Interval 366 ms MUSE SYSTEM QTC Calculated 477 ms MUSE SYSTEM (Bezet) Calculated P Mclain 73 degrees MUSE SYSTEM Calculated R Mclain 1 degrees MUSE SYSTEM Calculated T Mclain 69 degrees MUSE SYSTEM INTERPRETATION Sinus tachycardia [...] Jr., MD ECG ORDERABLES Performing Organization Address City/State/ZIP Code Phon e Number MUSE SYSTEM (ABNORMAL) Differential, Automated (09/26/2018 7:15 PM EST) Patholo gist Method Time Signature Neutrophils % 81.3 % [facility] Neutr Abs (ANC) 5.96 1.70 - [facility] 6.10 [facility] x10(3)/[facility] LABORATORY Lymphocytes % 15.4 % [facility] Lymphocytes Abs 1.1 0.9 - 3.2 [facility] x10(3)/[facility] LABORATORY Monocytes % 1.6 % [facility] Monocyte Abs 0.1 (L) 0.3 - 0.9 [facility] x10(3)/[facility] LABORATORY Eosinophils % 0.4 % [facility] Eosinophils Abs 0.0 0.0 - 0.4 [facility] x10(3)/[facility] LABORATORY Basophils % 0.3 % [facility] Basophils Abs 0.0 0.0 - 0.1 [facility] x10(3)/[facility] LABORATORY Immature Gran % 1.00 % [facility] Comment: Immature granulocytes(IG's)percentage an d absolute count will include metamyelocytes, myelocytes, and promyelo cytes. Blood smears from CBCs yielding IG's will be scanned manually for concor danshabana. If this scan disagrees with the automated IG or if promyelocytes are not ed, a manual differential will be performed. Irina Gran Abs 0.07 (H) 0.00 - 0.04 x10(3)/[facility] LABORATORY Specimen Anatomical Collection Method Collection Time Receive d Time (Source) Location / / Volume Laterality Blood specimen 09/26/2018 7:15 PM 019 7:24 (specimen) EST PM EST Resulting Agency Comment Spec In Lab Linda Rodriguez MD HEMATOLOGY ORDERABLES Performing Organization Address City/State/ZIP [place] [address] (ABNORMAL) Hemogram (09/26/2018 7:15 PM EST) Analysis Performed At Patho logist Time Signature WBC 7.3 4.0 - 9.5 [facility] x10(3)/[facility] LABORATORY RBC 4.39 4.00 - [facility] 5.21 [facility] x10(6)/[facility] LABORATORY Hemoglobin 13.3 11.7 - [facility]/dL [facility] Hematocrit 41.9 35.7 - [facility] 45.8 % [facility] MCV 95.4 (H) 82.6 - [facility] 94.4 [facility] LABORATORY MCH 30.3 27.1 - [facility] [place] 32.0 pg [facility] MCHC 31.7 31.7 - [facility] 35.0 gm/dL [facility] Platelets 247 145 - 357 [facility] x10(3)/[facility] LABORATORY RDWSD 44.7 37.0 - [facility] [employer] 46.0 [facility] LABORATORY RDWCV 12.8 11.5 - [facility] [place] 14.1 % [facility] MPV 10.0 7.6 - 12.9 [facility] LABORATORY nRBC % Auto 0.0 % [facility] nRBC Abs Auto 0.000 0.000 - [facility] 0.000 [facility] x10(3)/[facility] LABORATORY Specimen Anatomical Collection Method Collection Time Receive d Time (Source) Location / / Volume Laterality Blood specimen 09/26/2018 7:15 PM 019 7:24 (specimen) EST PM EST Resulting Agency Comment Spec In Lab Linda Rodriguez MD HEMATOLOGY ORDERABLES Performing Organization Address City/State/ZIP [place] [address] (ABNORMAL) Basic Metabolic Panel (non-fasting) (09/26/2018 7:15 PM EST) athologist Signature Glucose Lvl 166 65 - 199 [facility] mg/dL [facility] Comment: Diabetes: >=200 mg/dL plus symp toms BUN 11 8 - 18 mg/dL [facility] Creatinine 0.88 0.70 - 1.20 mg/dL [facility] Sodium 137 135 - 145 mmol/L [facility] Potassium 4.6 3.5 - 5.0 mmol/L [facility] Comment: Please note: ??Patients with WBC >100,00 0 may have falsely elevated Potassium levels. ??For accurate Potassium quantif ication in these patients send serum separator tube (gold top) for subsequent determinations. ??Contact the Clinical Chemistry Laboratory if there are any qu estions. Chloride 102 98 - 107 mmol/L [facility] CO2 18 (L) 22 - 31 mmol/L [facility] Anion Gap 17 (H) 5 - 15 mmol/L [facility] Calcium 10.5 8.5 - 10.5 mg/dL [facility] Estimated GFR 72 >=60 mL/min/1.73 m?? [facility] Comment: The eGFR was calculated using the CKD-EP I equation. As with all creatinine based estimates of kidney function, eGFR values calculated with the CKD-EPI equation are not accurate in patients wi th acute kidney failure, extremes of body mass or the acutely ill. [email or web address]/DHnkf eGFR 84 >=60 mL/min/1.73 m?? [facility] Comment: The eGFR was calculated using the CKD-EP I equation. As with all creatinine based estimates of kidney function, eGFR values calculated with the CKD-EPI equation are not accurate in patients wi th acute kidney failure, extremes of body mass or the acutely ill. [email or web address] Specimen Anatomical Collection Method Collection Time Receive d Time (Source) Location / / Volume Laterality Blood specimen 09/26/2018 7:15 PM 019 7:24 (specimen) EST PM EST Resulting Agency Comment Spec In Lab Crow Galvin Jr., MD CHEMISTRY ORDERABLES Performing Organization Address City/[facility]/ZIP Code Phon e Number [address] POCT Glucose (09/26/2018 7:02 PM EST) P athologist Signature POC Glucose 162 65 - 199 [facility] mg/dL [facility] Comment: Supplemental ranges: <140 mg/dL before meals <180 mg/dL all other times of the day Specimen Anatomical Collection Method Collection Time Receive d Time (Source) Location / / Volume Laterality Blood specimen 09/26/2018 7:02 PM 019 7:02 (specimen) EST PM EST Crow Galvin Jr., MD POINT OF CARE TEST ORDERABLE S Performing Organization Address City/[facility]/ZIP Code Phon e Number [address] XR Fluoro No Rad <1Hr - OR Use (09/26/2018 6:30 PM EST) Specimen (Source) Anatomical Location Collection Method / Collectio n Time Received Time / Laterality Volume Narrative DH RAD - 09/26/2018 6:30 PM EST This order does not need a radiologist i nterpretation. ?? Crow Galvin Jr., MD IMG FLUORO ORDERABLES Performing Organization Address City/[facility]/ZIP Code Phon e Number DH RAD RAD [place], [place] Anaerobic Culture (09/26/2018 5:36 PM EST) Patholo gist Method Time Signature Anaerobic No anaerobic [facility] Culture organisms [facility] LABORATORY Specimen Anatomical Collection Method Collection Time Receive d Time (Source) Location / / Volume Laterality Specimen from 09/26/2018 5:36 PM 09/27/19 19 7:40 kidney EST PM EST (specimen) Comment: RIGHT URETERAL STONE Resulting Agency Comment Spec In Lab Crow Galvin Jr., MD MICROBIOLOGY - GENERAL ORDER ELINA Performing Organization Address City/State/ZIP Code [place] [address] (ABNORMAL) Tissue culture (09/26/2018 5:36 PM EST) Component Value Ref Test Analysis Performed At Patholo gist Range Method Time Signature Tissue Rare Proteus mirabilis [place] Culture Few Pseudomonas aeruginosa [facility] Gram Stain No Neutrophils seen. [place] No microorganisms seen. [facility] () [facility] Organism Proteus mirabilis [place] (A) [facility] Organism Pseudomonas [place] aeruginosa (A) [facility] Specimen Anatomical Collection Method Collection Time [...] Organization Address City/State/ZIP [place] [address] Kidney Stone Analysis (09/26/2018 5:36 PM EST) Component Value Ref Test Analysis Performed At [facility] Range Method Time Signature Kidney Stone [place] Analysis Test ? Result ?Flag ??Unit ??RefValue [facility] CK [facility] Kidney Stone Analysis [facility] ??Source: ?[facility] LABORATORY ??1st Constituent: ?60% Calcium phosphate (apatite) ??2nd Constituent: ?20% Magnesium ammonium phosphate (struvite) ??3rd Constituent: ?10% Calcium oxalate dihydrate ??Comment ?10% Calcium carbonate ? ADDITIONAL INFORMATION ------ ?This test was developed and its performance characteri stics ?determined by [facility] in a manner consistent with CLIA ?requirements. This test has not been cleared or approv ed by ?the U.S. Food and Drug Administration. ?Test Performed by: ?[facility] ?[address] [place] [address] Specimen Anatomical Collection Method Collection Time Receive d Time (Source) Location / / Volume Laterality Calculus 09/26/2018 5:36 PM 9 specimen EST 11:16 AM EST (specimen) Resulting Agency Comment Spec In Lab Crow Galvin Jr., MD BODY FLUIDS AND STOOLS ORDER ELINA Performing Organization Address City/[facility] [place] [address] (ABNORMAL) Urine culture Cystostomy Urine (09/26/2018 3:22 PM EST) Component Value Ref Test Analysis [facility] Range Method Time Signature Urine 10,000-49,000 cfu/ml Proteus mirabilis [facility] Culture 10,000-49,000 cfu/ml Pseudomonas aeruginosa [place] Susceptibilities previously reported [facility] Organism Proteus mirabilis [place] (A) [facility] Organism Pseudomonas [place] aeruginosa (A) [facility] Specimen Anatomical Collection Method Collection Time Receive d Time (Source) Location / / Volume Laterality Urine specimen 09/26/2018 3:22 PM 019 3:46 (specimen) EST PM EST Comment: UPPER POLE RENAL URINE Resulting Agency Comment Spec In Lab Crow Galvin Jr., MD MICROBIOLOGY - GENERAL ORDER ELINA Performing Organization Address City/[facility]/ZIP [place] [address] (ABNORMAL) Urine culture Cystoscopic Urine (09/26/2018 3:22 PM EST) Patholo gist Method Time Signature Urine Culture 1,000-9,000 cfu/ml Proteus mirabilis [place] 1,000-9,000 cfu/ml Pseudomonas aeruginosa [place] () [facility] Organism Proteus [place] mirabilis (A) [facility] Organism Pseudomonas [place] aeruginosa (A) [facility] Specimen Anatomical Collection Method Collection Time [...] Organization Address City/State/ZIP [place] [address] (ABNORMAL) POCT Glucose (09/26/2018 12:22 PM EST) P athologist Signature POC Glucose 203 (H) 65 - 199 [place] mg/dL [facility] Comment: Supplemental ranges: <140 mg/dL before meals <180 mg/dL all other times of the day Specimen Anatomical Collection Method Collection Time Receive d Time (Source) Location / / Volume Laterality Blood specimen 09/26/2018 12:22 9 (specimen) PM EST 12:22 PM EST Crow Galvin Jr., MD POINT OF CARE TEST ORDERABLE S Performing Organization Address City/State/ZIP [place] [address] documented in this encounter Visit Diagnoses Not on filedocumented in this encounter Administered Medications Inactive Administered Medications - up to 3 most recent administrations Medication Order MAR Action Action Date Dose Rate Site acyclovir (ZOVIRAX) 5 % ointment 1 Given 10/01/2018 1:56 PM EDT 1 each each 1 each, Topical (Top), EVERY 3 HOURS, First dose on Sun10/01/18 at 1400, Until Discontinued atorvastatin (LIPITOR) tablet 10 mg Given 09/30/2018 9:30 PM EDT 10 mg 10 mg, Oral, DAILY, First dose on Sun09/27/18 at 0900, Until Discontinued, Routine Given 09/29/2018 8:47 PM EDT 10 mg Given 09/28/2018 8:35 PM EST 10 mg belladonna-opium (B&O Given 09/26/2018 6:13 PM EST 60 mg 20-Other (document in SUPPRETTES) 16.2-60 mg co mment section) suppository 60 mg 60 mg, Rectal, ONCE, 1 dose, On Sun09/26/18 at 1145, TO BE GIVEN IN THE OR, Day of Surgery (Day of Procedure), STAT BUpivacaine (PF) (MARCAINE) Given 09/26/2018 6:15 PM EST 10 mLs 19- Surgical Site 0.5 % (5 mg/mL) injection ONCE PRN, Starting on Sun09/26/18 at 1815, Until Sun10/01/18 at 1847, Intra-Operative (Intra-Procedure), Routine carvedilol (COREG) tablet 3.125 mg Given 10/01/2018 [...] Intravenous, EVERY 8 HOURS, First dose on 09/28/18 at 1300, Until Discontinued, Administer over 30 Minutes, Indication for (Active or Suspected): Urinary Tract/Pyelonephritis New Bag 10/01/2018 5:10 AM EDT 2 g 200 mL/hr New Bag 09/30/2018 9:28 PM EDT 2 g 200 mL/hr dextrose 50% intravenous solution 25-50 mL 25-50 mL (12.5-25 g), Intravenous, EVERY 1 HOUR PRN, S tarting on 09/29/18 at 0011, Until 10/01/18 at 1847, Low blood sugar, F or [...] mg gabapentin (NEURONTIN) capsule 600 mg Given 10/01/2018 [...] Buccal, EVERY 30 MIN PRN, Starting on 09/20 0 at 0011, Until Sun10/01/18 at 1847, Low [...] DAILY PRN, 1 dose , Starting on Sun09/29/18 at 0730, Until Sun10/01/18 at 1847, Constipation, Routine HYDROcodone-acetaminophen (NORCO) 5-325 mg Given 10/01 12:55 PM EDT 1 tablet per tablet 1 tablet 1 tablet, Oral, EVERY 6 HOURS PRN, Starting on Sun09/30/18 at 1230, Until Sun10/01/18 at 1847, Pain, Maximum dose of acetaminophen is 4000 mg from all sources in 24 hours. , Routine Given 09/30/2018 9:45 PM EDT 1 tablet Given 09/30/2018 3:15 PM EDT 1 tablet ibuprofen (ADVIL;MOTRIN) tablet 600 mg Given 10/01/2018 12:55 PM EDT 600 mg 600 mg, Oral, EVERY 6 HOURS PRN, Starting on Sun09/30/18 at 1128, Until Sun10/01/18 at 1847, Pain, Administer orally with milk or food to minimize GI irritation. Maximum dose of 3200 mg from all sources in 24 hours, Routine Given 10/01/2018 5:10 AM EDT 600 mg insulin lispro (HumaLOG) VIAL injection 2-8 Given [...] Given 09/30/2018 11:44 PM EDT 2 Units iohexol (OMNIPAQUE) 300 mg/mL Given 09/26/2018 6:30 PM 170 mLs 19- Surgical Site solution EST ONCE PRN, Starting on Arin 09/26/18 at 1830, Until Sun10/01/18 at 1847, Intra-Operative (Intra-Procedure), Routine lactobacillus with pectin 1 capsule Given 10/01/2018 8:40 AM EDT 1 capsule 1 capsule, Oral, DAILY, First dose on Sun09/27/18 at 0900, Until Discontinued, Routine Given 09/30/2018 9:00 AM EDT 1 capsule Given 09/29/2018 8:38 AM EDT 1 capsule lidocaine-EPINEPHrine 1 Given 09/26/2018 6:15 PM 10 mLs 19- Surgical Site %-1:200,000 injection EST ONCE PRN, Starting on Arin 09/26/18 at 1815, Until Sun10/01/18 at 1847, Intra-Operative (Intra-Procedure), Routine lisinopril (PRINIVIL;ZESTRIL) tablet 5 m g Given 10/01/2018 8:40 AM EDT 5 mg 5 mg, Oral, DAILY, First dose on Sun09/30/18 at 0900, Until Discontinued, Routine Given 09/30/2018 9:00 AM EDT 5 mg loratadine (CLARITIN) tablet 5 mg Given 09/30/2018 4:53 AM EDT 5 mg 5 mg, Oral, DAILY PRN, Starting on Arin 09/26/18 at 2116, Until Sun10/01/18 at 1847, allergies, Routine ondansetron (ZOFRAN) injection 4 mg 4 mg, Intravenous, EVERY 8 HOURS PRN, Starting on Arin 09/26/18 at 2116, Until Sun10/01/18 at 1847, Nausea, May repeat time s one in 30 minutes if ineffective. If multiple antiemetics are ordered, use ondansetron firs t., Recovery (Recovery-Hospital Unit) ondansetron (ZOFRAN) tablet 4 mg Given 09/27/2018 3:17 AM EST 4 mg 4 mg, Oral, EVERY 8 HOURS PRN, Starting on Arin 09/26/18 at 2116, Until Sun10/01/18 at 1847, Nausea, Vomiting, If multiple antiemetics are ordered, use ondansetron first. PO Preferred. If patient unable to take PO, may give IV if ordered. May repeat times one in 45 minutes if ineffective., Recovery (Recovery-Hospital Unit), Routine polyethylene glycol (MIRALAX) packet 17 g Given 10/01/2018 8:41 AM EDT 17 g 17 g, Oral, DAILY, First dose on Sun09/30/18 at [...] Given 09/29/2018 8:57 PM EDT 5 mLs spironolactone (ALDACTONE) tablet 25 mg Given 10/01/2018 [...] EVERY 6 HOURS SCHEDULED, First dose on 09/28/18 at 0000, Until Discontinued, Maximum dose of acetaminophen is 4000 mg from all sources in 24 hours., Routine acyclovir (ZOVIRAX) 5 % ointment 1 each 1356 (Given - Provider: Lisa Peguero RN) 1 each, Topical (Top), EVERY 3 HOURS, First dose on 10/01/18 at 1400 atorvastatin (LIPITOR) tablet 10 mg 2046 (Given - Prov ider: Thu Navarrete RN) 2129 (Given - Provider: Amanda Gustafson, BRYAN) 10 mg, Oral, DAILY, First dose on 03/10 at 0900, Until Discontinued, Routine carvedilol (COREG) tablet 3.125 mg 0839 (Given - Provi elise: Ryann Easley RN)2049 (Given - Provider: Thu Navarrete RN) 0835 (Given - Provider: Viky Zaidi, BRYAN)213 (Given - Provider: Amanda Gustafson RN) 0841 (Given - Provider: Kishore sebastian [...] BRYAN) 0510 (New Bag - Provider: Amanda Gustafson RN)0540 (Stopped - Provider: Amanda Gustafson RN)1259 (New Bag - Provider: Kishore Mac, BRYAN)1329 (Stopped - Provider: Lisa Peguero RN) 2 g, Intravenous, EVERY 8 HOURS, First d ose on 09/28/18 at 1300, Until Discontinued, Administer over 30 Minutes, Indication for (Active or Suspected): Urinary Tract/Pyelonephritis 2047 (New Bag - Provider: Thu Navarrete RN)2117 (Stopped - Provider: Thu Navarrete RN) 2127 (New Bag - Provider: Amanda Gustafson RN)2158 (Stopped - Provider: Amanda Gustafson RN) docusate sodium (COLACE) capsule 100 mg 0837 (Given - Provider: Ryann Easley RN)2047 (Given - Provider: Thu Navarrete RN) 0900 [...] davis RN)1515 (Given - Provider: Viky Zaidi RN)213 (Given - Provider: Amanda Gustafson RN) 0840 [...] Thu Navarrete RN)0830 (Given - Provider: Viky Zaidi, BRYAN)1225 (Given - Provider: Viky Zaidi RN)1600 (Not Given - Provider: Viky Zaidi RN - Reason: Order parameters not met) 0459 (Given - Provider: Amanda Gustafson RN)0841 (Given - Provider: Kishore Mac, BRYAN)1208 (Not Given - Provider: Kishore Mac RN - Reason: Order parameters not met)1600 (Due) 2-8 Units, Subcutaneous, EVERY 4 HOURS S CHEDULED, First dose on 09/29/18 at 0030, Until Discontinued, CORRECTION BOLUS Moderate BG 140 - 160 Give 2 units BG 161 - 200 Give 4 units BG 201 - 240 Gi 1700 (Given - Provider: Viky Gill RN - Comment: BG 169)205 (Given - Provider: Thu Navarrete RN)2350 (Given - Provider: Thu Navarrete RN) 2128 (Given - Provider: Amanda Gustafson, BRYAN)2344 (Given [...] Easley RN) 0900 (Given - Provider: Viky Zaidi, BRYAN) 0840 (Given - Provider: Kishore Mac, BRYAN) 1 capsule, Oral, DAILY, First dose on Fr i 09/27/18 at 0900, Until Discontinued, Routine lisinopril (PRINIVIL;ZESTRIL) tablet 5 mg 0900 (Given - Provider: Viky Zaidi RN) 0840 (Given - Provider: Kishore sebastian RN) 5 mg, Oral, DAILY, First dose on Mon 09/20 08/10 at 0900, Until Discontinued, Routine polyethylene glycol (MIRALAX) packet 17 g 0831 (Given - Provider: Viky Zaidi RN) 0841 (Given - Provider: Kishore sebastian RN) 17 g, Oral, DAILY, First dose on Mon 09/20 08/10 at 0900, Until Discontinued, Routine sodium chloride 0.9 % flush 5 mL 0900 (Not Given - Pro vider: Ryann Easley [...] Navarrete RN) 0843 (Given - Provider: Viky davis RN) 650 mg, Oral, EVERY 6 [...] HOURS PRN, Starting 09/28/18 at 1234, Until Sun10/01/18 at 1847, Itching, Routine glucagon (human recombinant) injection SolR 1 mg(Linked Group 2) 1 mg, Intramuscular, EVERY 1 HOUR PRN, S tarting 09/29/18 at 0011, Until Sun10/01/18 at 184, Low blood sugar, For BG 50-70 mg/dL: [...] PRN, Startin g Sun09/30/18 at 1128, Until 10/01/18 at 1847, Pain, Administer orally with milk [...] mg 0453 ( Given - Provider: Thu Navarrete, BRYAN) 5 mg, Oral, DAILY PRN, Starting Arin [...] EVERY 1 MIN PRN, S tarting Arin 09/26/18 at 2116, Until 10/01/18 at 1847, flush, Flush pertains to all indwelling lines. Flush per protocol found in the job aid using the link provi ded on this medication record., Recovery (Recovery-Hospital [...] Buccal, EVERY 30 MIN PRN, Start ing Sun09/29/18 at 0011, Until Sun10/01/18 at 184, Low blood sugar
For BG 50-70 mg/dL: [...] g), Intravenous, EVERY 1 HOUR PRN, Starting Sun09/29/18 at 0011, Until Sun10/01/18 at 1847, Low [...] PRN, S tarting 09/29/18 at 0011, Until 10/01/18 at 1847, [...] at 2116, Until 10/01/18 at 1847, Nausea, Vomiting
If multiple antiemetics [...] Unit) documented in this encounter Care Teams Deputy Insurance Commissioner Relationship Specialty Start Date End Date Albert Zuleta MD PCP - General Family Medicine 01/17/17 10/26/21 [address] [place] [id number] documented as of this encounter
--- OUTSIDE RECORDS SUMMARY | 2022-02-08 01:58 | XMS_ITS | Encounter Summary ---
:1960 Author Organization [facility] [place] [address] Care Team Providers Name Role Phone Albert Zuleta MD Primary Care Provider Encounter Details Date Type Department Care Team Description 09/22/2018 Telephone Urology Linda Rodriguez MD [facility] [place] [address] UROLOGY DEPT [phone] [place], [place] [address] (Wo rk) Social History Tobacco [...] this encounter Miscellaneous Notes Telephone Encounter - Linda Rodriguez MD - 09/22/2018 6:17 PM EST TELEPHONE NOTE Date of call: 09/22/18 Time of call: 6 PM I called Blossom Samayoa to see if she would like to participate in a research study looking at pre-op antibiotic duration prior to PCNL. She agrees to participate. She has been randomized to the 48hour arm. She has allergies to Macrobid and sulfa, so she was prescribed doxycycline 100 mg BID (perprotocol). She will sign the consent for the morning of surgery. documented in this encounter Plan of Treatment Upcoming Encounters Date Type Specialty Care Team Description 03/15/2022 Office Visit Neurology Ryann Barfield APRN [facility] [address] [place], [place] [address] 03/23/2022 Appointment Radiology Hailey Mcclendon MD [facility] [address] [place] [address] 03/23/2022 Laboratory Appointment Lab 03/23/2022 Office Visit Gastroenterology aHiley Mcclendon MD [facility] [address] [place] [address] 05/23/2022 Procedure visit Maxillofacial Surgery Corby Montes MD [facility] [place] [address] documented as of this encounter Visit Diagnoses Not on filedocumented in this encounter Care Teams Windows 7 Deployment Lead Relationship Specialty Start Date End Date Albert Zuleta MD PCP - General Family Medicine 01/17/17 10/26/21 [place] [id number] documented as of this encounter
--- OUTSIDE RECORDS SUMMARY | 2022-02-08 01:58 | XMS_ITS | Encounter Summary ---
:1960 Author Organization [facility] [place] [address] Care Team Providers Name Role Phone Albert Zuleta MD Primary Care Provider Encounter Details Date Type Department Care Team Description 09/18/2018 Telephone Urology at [facility] [place] [address] Social History Tobacco Use Types Packs/Day [...] Notes Telephone Encounter - La Horvath - 09/18/2018 11:57 AM EST I called pt and got her all set for her PCNL on 09/26. She said that she is having a lot of pain and is very uncomfortable. She is having a lot of bleeding when she does activities such as load the hand stemmer or do laundry. Can you please give her a call and speak with her as she is very concerned. Thank you La documented in this encounter Plan of Treatment Upcoming Encounters Date Type Specialty Care Team Description 03/15/2022 Office Visit Neurology Ryann Barfield APRN [facility] [address] [place], [place] [address] 03/23/2022 Appointment Radiology Hailey Mcclendon MD [facility] [address] [place] [address] 03/23/2022 Laboratory Appointment Lab 03/23/2022 Office Visit Gastroenterology Hailey Mcclendon MD [facility] [address] [place] [address] 05/23/2022 Procedure visit Maxillofacial Surgery Corby Montes MD [facility] [address] [place] [address] documented as of this encounter Visit Diagnoses Not on filedocumented in this encounter Care Teams Brewery Worker Relationship Specialty Start Date End Date Albert Zuleta MD PCP - General Family Medicine 01/17/17 10/26/21 [place] [address] documented as of this encounter
--- OUTSIDE RECORDS SUMMARY | 2022-02-08 01:58 | XMS_ITS | Encounter Summary ---
:1960 Author Organization [facility] [place] [address] Care Team Providers Name Role Phone Albert Zuleta MD Primary Care Provider Encounter Details Date Type Department Care Team Description 08/30/2018 Telephone Urology Linda Rodriguez MD [facility] [place] [address] UROLOGY DEPT [phone] [place], [place] [address] (Wo rk) Social History Tobacco [...] Telephone Encounter - Linda Rodriguez MD - 08/30/2018 5:01 PM EST TELEPHONE NOTE Date of call: 08/30/18 Time of call: 5 PM I called Blossom Samayoa after speaking with Dr. Drew. Her nuclear stress test showed an areaof concern and the plan is for her to undergo a cardiac catheterization in the next couple of weeks. After discussion with Dr. Galvin, we are going to hold off on her PCNL that is scheduled for 09/05/2018until her cardiac catheterization. If she needs a cardiac stent placed, I discussed that a cardiac stent that would require a shorter amount of time on dual antiplatelet therapy would be preferable, aswe cannot perform PCNL while on antiplatelet therapy. Her ureteral stent was placed on 07/10/2018. If we cannot do a PCNL within three months of ureteral stent placement. She would need a stent exchange. She is disappointed in this news, but she understands. I offered flomax to help with stent related pain, but she declines. She will call us when her cardiac cath is scheduled and we will determine the best course of action based on those results. documented in this encounter Plan of Treatment Upcoming Encounters Date Type Specialty Care Team Description 03/15/2022 Office Visit Neurology Ryann Barfield APRN [facility]UR[facility] [place], [place] [address] 03/23/2022 Appointment Radiology Hailey Mcclendon MD [facility] [address] [place] [address] 03/23/2022 Laboratory Appointment Lab 03/23/2022 Office Visit Gastroenterology Hailey Mcclendon MD [facility] [address] [place] [address] 05/23/2022 Procedure visit Maxillofacial Surgery Corby Montes MD [facility] [address] [place] [address] documented as of this encounter Visit Diagnoses Not on filedocumented in this encounter Care Teams Measurement Specialist Relationship Specialty Start Date End Date Albert Zuleta MD PCP - General Family Medicine 01/17/17 10/26/21 [address] [place] [address] documented as of this encounter
--- OUTSIDE RECORDS SUMMARY | 2022-02-08 01:58 | XMS_ITS | Encounter Summary ---
:1960 Author Organization [facility] [place] [address] Care Team Providers Name Role Phone Albert Zuleta MD Primary Care Provider Encounter Details Date Type Department Care Team Description 08/29/2018 Hospital Encounter Non-Invasive [place], Cardiomyo mitch, unspecified type; Cardiology Lab [facility] Pre-operative cardiovascular examination [facility] [place] [address] [phone] Social History Tobacco Use Types Packs/Day Years [...] Mostly Tablet takes at night for sleep polyethylene glycol Take 17 g by mouth 14 each 0 07/24/19 19 09/11/2018 (MIRALAX) 17 gram daily. Powder in Packet senna-docusate Take 1 tablet by mouth 60 tablet 11 9 09/11/2018 (PERICOLACE) 8.6-50 mg daily. Tablet acetaminophen (TYLENOL) Take 2 tablets by 30 tablet 1 07/2406/13/2019 325 mg Tablet mouth every 6 hours. magnesium hydroxide Take 15 mLs by mouth 0 201809/11/2018 (MILK OF MAGNESIA) daily as needed for 2,400 mg/10 mL Constipation. Suspension levalbuterol (XOPENEX INHALE TWO PUFFS BY 3 [...] (THERAGRAN) tablet documented as of this encounter Plan of Treatment Upcoming Encounters Date Type Specialty Care Team Description 03/15/2022 Office Visit Neurology Ryann Barfield, [facility] [address] [place], [place] [address] 03/23/2022 Appointment Radiology Hailey Mcclendon MD [facility] [address] [place] [address] 03/23/2022 Laboratory Appointment Lab 03/23/2022 Office Visit Gastroenterology Hailey Mcclendon MD [facility] [place] [address] 05/23/2022 Procedure visit Maxillofacial Surgery Corby Montes MD [facility] [place] [address] documented as of this encounter Procedures Procedure Name Priority Date/Time Associated Diagnosis Comme nts NUCLEAR PHARMACOLOGIC Routine 08/29/2018 10:23 AM Cardiomyopat hy, STRESS CARDIOLOGY EST unspecified ty pe Pre-operative cardiovascular examination documented in this encounter Results Nuclear Pharmacologic Stress Cardiology (08/29/2018 10:23 AM EST) Specimen (Source) Anatomical Location Collection Method / Collectio n Time Received Time / Laterality Volume Narrative This result has an attachment that is no t available. Joni Drew MD CARDIAC SERVICES ORDERABLES documented in this encounter Visit Diagnoses Diagnosis Cardiomyopathy, unspecified type Pre-operative cardiovascular examination documented in this encounter Care Teams Accident Examiner Relationship Specialty Start Date End Date Albert Zuleta MD PCP - General Family Medicine 01/17/17 10/26/21 [address] [place] [address] documented as of this encounter
--- OUTSIDE RECORDS SUMMARY | 2022-02-08 01:58 | XMS_ITS | Encounter Summary ---
:1960 Author Organization [facility] [address] Care Team Providers Name Role Phone Albert Zuleta MD Primary Care Provider Encounter Details Date Type Department Care Team Description 09/12/2018 Hospital Encounter Same Day Program at Danielito Fraire MD [place], [place] [address] [place] [address] [phone] Social History Tobacco Use Types Packs/Day Years [...] Sign Reading Time Taken Comments Blood Pressure 141/83 09/12/2018 2:00 PM EST Pulse 69 09/12/2018 2:15 PM EST Temperature 36.7 ??C (98.1 ??F) 09/12/2018 11:11 AM EST Respiratory Rate 18 09/12/2018 2:15 PM EST Oxygen Saturation 96% 09/12/2018 2:15 PM EST Inhaled Oxygen Concentration - - [...] by your doctor, do not take any jsqn-jvg-aajwqtp medicines orherbal preparations without first discussing this with your doctor or pharmacist. There is the possibility of side effect and interactions when these are combined. Follow up Care Who to Call with Questions or Problems If there are any questions or problems that you think might be related to your cardiac cath or angioplasty, contact the bias cutting machine operator vertical verification manager by calling [facility] at . POST ANESTHESIA INSTRUCTIONS [...] Tablet lactobacillus Take 1 capsule by 0 03/0 [...] Please refer to Dr. Ferrell note from 08/28/18 for full details. Ms. Gilbert presents for elective diagnostic coronary angiography for recent diagnosis of decreased LVEF and ischmia on a nuclear stresstest. Procedure was discussed in detail and informed consent was obtained. Will plan on RRA. Labs reviewed. ASA 3; MP 3 Clementine Fraire MD [facility] Interventional Cardiology Pager [phone] documented in this encounter Plan of Treatment Upcoming Encounters Date Type Specialty Care Team Description 03/15/2022 Office Visit Neurology Ryann Barfield, [facility]Y [place], [place] [address] 03/23/2022 Appointment Radiology Hailey Mcclendon MD [facility] [address] [place] [address] 03/23/2022 Laboratory Appointment Lab 03/23/2022 Office Visit Gastroenterology Hailey Mcclendon MD [facility] [address] [place] [address] 05/23/2022 Procedure visit Maxillofacial Surgery Corby Montes MD [facility] [address] [place] [address] documented as of this encounter Procedures [...] (ABNORMAL) Differential, Automated (09/12/2018 10:23 AM EST) [facility] Method Time Signature Neutrophils % 58.9 % [facility] Neutr Abs (ANC) 6.48 (H) 1.70 - [facility] 6.10 [facility] x10(3)/[facility] LABORATORY Lymphocytes % 30.4 % [facility] Lymphocytes Abs 3.3 (H) 0.9 - 3.2 [facility] x10(3)/[facility] LABORATORY Monocytes % 7.4 % [facility] Monocyte Abs 0.8 0.3 - 0.9 [facility] x10(3)/[facility] LABORATORY Eosinophils % 2.6 % [facility] Eosinophils Abs 0.3 0.0 - 0.4 [facility] x10(3)/[facility] LABORATORY Basophils % 0.3 % [facility] Basophils Abs 0.0 0.0 - 0.1 [facility] x10(3)/[facility] LABORATORY Immature Gran % 0.40 % [facility] Comment: Immature granulocytes(IG's)percentage an d absolute count will include metamyelocytes, myelocytes, and promyelo cytes. Blood smears from CBCs yielding IG's will be scanned manually for concor dance. If this scan disagrees with the automated IG or if promyelocytes are not ed, a manual differential will be performed. Irina Gran Abs 0.04 0.00 - 0.04 x10(3)/[facility]ORATORY Specimen Anatomical Collection Method Collection Time Receive d Time (Source) Location / / Volume Laterality Blood specimen 09/12/2018 10:23 9 (specimen) AM EST 10:36 AM EST Resulting Agency Comment Spec In Lab Joni Drew MD HEMATOLOGY ORDERABLES Performing Organization Address City/State/[place] [address] (ABNORMAL) Hemogram (09/12/2018 10:23 AM EST) Analysis Performed At Patho logist Time Signature WBC 11.0 (H) 4.0 - 9.5 [facility] x10(3)/[facility] LABORATORY RBC 4.00 4.00 - [facility] 5.21 [facility] x10(6)/[facility] LABORATORY Hemoglobin 12.2 11.7 - [facility] 15.5 gm/dL [facility] Hematocrit 37.7 35.7 - HAILEY ANDERSON 45.8 % [facility] MCV 94.3 82.6 - HAILEY STUARTCK 94.4 [facility] LABORATORY MCH 30.5 27.1 - [place] ANDERSON 32.0 pg [facility] MCHC 32.4 31.7 - [place] ANDERSON 35.0 gm/dL [facility] Platelets 232 145 - 357 [place] ANDERSON x10(3)/[facility] LABORATORY RDWSD 42.7 37.0 - [place] ANDERSON 46.0 [facility] LABORATORY RDWCV 12.4 11.5 - [place] ANDERSON 14.1 % [facility] MPV 10.4 7.6 - 12.9 HAI[place] ANDERSON [facility] LABORATORY nRBC % Auto 0.0 % [facility] nRBC Abs Auto 0.000 0.000 - [place] ANDERSON 0.000 [facility] x10(3)/[facility] LABORATORY Specimen Anatomical Collection Method Collection Time Receive d Time (Source) Location / / Volume Laterality Blood specimen 09/12/2018 10:23 9 (specimen) AM EST 10:36 AM EST Resulting Agency Comment Spec In Lab Joni Drew MD HEMATOLOGY ORDERABLES Performing Organization Address City/State/[place] [address] (ABNORMAL) BMP w/fasting Glucose (09/12/2018 10:23 AM EST) athologist Signature Glucose 241 (H) 65 - 99 HAI[place] MONICA Fasting mg/dL [facility] Comment: ?Fasting* Glucose Interpretive C riteria Normal ?65-99 mg/dL Impaired Fasting glucose ?100-125 mg/dL Consistent with Diabetes Mellitus ? >or= 126 mg/dL *Fasting is defined as no caloric intake for at least 8 hours In the absence of unequivocal hypergly cemia a plasma glucose value of >or= 126 mg/dL should be repeated on a subseq uent day. Diagnosis and Classification of Diabetes Mellitus, Position Statement from the [place] [employer]. ??Diabete s Care, Volume 33, Supplement 1, Jul 2009 BUN 14 8 - 18 mg/dL [facility] Creatinine 0.71 0.70 - 1.20 mg/dL [facility] Sodium 138 135 - 145 [...] estions. Chloride 100 98 - 107 mmol/L [facility] CO2 24 22 - 31 mmol/L [facility] Anion Gap 14 5 - 15 mmol/L [facility] Calcium 11.0 (H) 8.5 - 10.5 mg/dL [facility] LABOR[facility]ORY Estimated GFR 94 >=60 mL/min/1.73 m?? [facility] Comment: The eGFR was calculated using the CKD-EP I equation. As with all creatinine based estimates of kidney function, eGFR values calculated with the CKD-EPI equation are not accurate in patients wi th acute kidney failure, extremes of body mass or the acutely ill. http://[employer]/[facility] – TULS[facility]kf eGFR 109 >=60 mL/min/1.73 m?? [facility] Comment: The eGFR was calculated using the CKD-EP I equation. As with all creatinine based estimates of kidney function, eGFR values calculated with the CKD-EPI equation are not accurate in patients wi th acute kidney failure, extremes of body mass or the acutely ill. http://[employer]/[facility] Specimen Anatomical Collection Method Collection Time Receive d Time (Source) Location / / Volume Laterality Blood specimen 09/12/2018 10:23 9 (specimen) AM EST 10:36 AM EST Resulting Agency Comment Spec In Lab Joni Drew MD CHEMISTRY ORDERABLES Performing Organization Address City/State/ZIP Code Phon e Number [place] [id number] documented in this encounter [...] Corby Mcdonough RN) ONCE PRN, Starting Arin 09/12/19 at 1159, Until Arin 219 at 1635, Intra- Operative (Intra-Procedure), Routine heparin (porcine) injection 1159 (Given - Provider: Corby Mcdonough RN) ONCE PRN, Starting Arin 2/19 at 1159, Until Arin 219 at 1635, Cath (Intra- Procedure), Routine HYDROmorphone (DILAUDID) tablet 2 mg 2 mg, Oral, EVERY 4 HOURS PRN, Starting Arin 2 at 1311, Until Arin 2 at 1635, Pain, Cath (Recovery-Hospital Unit), Routine iohexol (OMNIPAQUE) 350 mg/mL solution 1205 (Given - Provider: Clementine Fraire MD) ONCE PRN, Starting Arin 219 at 1205, Until Arin 2 at 1635, [...] Starting Arin 219 at 1159, Until Arin 2 at 1635, Cath (Intra- Procedure), Routine nitroGLYcerin 100 mcg/mL intracoronary dilution 1200 (Given - Provider: Clementine Fraire MD) ONCE PRN, Starting Arin 219 at 1200, Until Arin 219 at 1635, Cath (Intra- Procedure), Routine sodium [...] e documented in this encounter Care Teams Search Engine Marketing Manager Relationship Specialty Start Date End Date Albert Zuleta MD PCP - General Family Medicine 01/17/17 10/26/21 [address] [place] [address] documented as of this encounter
--- OUTSIDE RECORDS SUMMARY | 2022-02-08 01:58 | XMS_ITS | Encounter Summary ---
:1960 Author Organization [facility] [place] [address] Care Team Providers Name Role Phone Albert Zuleta MD Primary Care Provider Encounter Details Date Type Department Care Team Description 09/13/2018 Telephone Urology Linda Rodriguez MD [place] [address] UROLOGY DEPT [phone] [place], [place] [address] (Wo rk) Social History Tobacco [...] Telephone Encounter - Linda Rodriguez MD - 09/13/2018 9:10 AM EST TELEPHONE NOTE Date of call: 09/13/18 Time of call: 9 AM I called Blossom Samayoa. She had her cardiac catheterization yesterday. No stenotic vessels wereseen. No stents were placed. She was continued on ASA 81 mg daily. She would like to schedule her PCNL MELISSA. She is having a terrible time with the stent. I spoke with Radha Carter and she will call the patient and help schedule the PCNL. documented in this encounter Plan of Treatment Upcoming Encounters Date Type Specialty Care Team Description 03/15/2022 Office Visit Neurology Ryann Barfield APRN [facility] DR [place], [place] [address] 03/23/2022 Appointment Radiology Hailey Mcclendon MD [facility] [place] [address] 03/23/2022 Laboratory Appointment Lab 03/23/2022 Office Visit Gastroenterology Hailey Mcclendon MD [facility] [place] [address] 05/23/2022 Procedure visit Maxillofacial Surgery Corby Montes MD [facility] [place] [address] documented as of this encounter Visit Diagnoses Not on filedocumented in this encounter Care Teams School Lunch Monitor Relationship Specialty Start Date End Date Albert Zuleta MD PCP - General Family Medicine 01/17/17 10/26/21 [place] [address] documented as of this encounter
--- OUTSIDE RECORDS SUMMARY | 2022-02-08 01:58 | XMS_ITS | Encounter Summary ---
:1960 Author Organization [facility] Address [facility] [address] Care Team Providers Name Role Phone Albert Zuleta MD Primary Care Provider Encounter Details Date Type Department Care Team Description 09/02/2018 Telephone Cardiology at [facility] Joni Drew MD [place] [address] Cardiology [phone] [place], [place] [address] (Wo rk) Social History Tobacco [...] this encounter Miscellaneous Notes Telephone Encounter - Lisseth Matamoros - 09/02/2018 1:18 PM EST Spoke with pt to schedule for [facility]. Offered several dates and times, however pt insistent that she drive herself to and from this procedure back to [facility]. Explained to her that hospital policy is she must have transportation and cannot drive herself home from [facility] on same day. Pt. Agreed to check into having someone come along and will call me back to schedule once she has transportation. documented in this encounter Plan of Treatment Upcoming Encounters Date Type Specialty Care Team Description 03/15/2022 Office Visit Neurology Ryann Barfield, [facility] [address] [place], [place] [address] 03/23/2022 Appointment Radiology Hailey Mcclendon MD [facility] [address] [place] [address] 03/23/2022 Laboratory Appointment Lab 03/23/2022 Office Visit Gastroenterology Hailey Mcclendon MD [facility] [address] [place] [address] 05/23/2022 Procedure visit Maxillofacial Surgery Corby Montes MD [facility] [address] [place] [address] documented as of this encounter Visit Diagnoses Not on filedocumented in this encounter Care Teams Candle Molder Relationship Specialty Start Date End Date Albert Zuleta MD PCP - General Family Medicine 01/17/17 10/26/21 [place] [address] documented as of this encounter
--- OUTSIDE RECORDS SUMMARY | 2022-02-08 01:58 | XMS_ITS | Encounter Summary ---
:1960 Author Organization [facility] Address [facility] [place] [address] Care Team Providers Name Role Phone Albert Zuleta MD Primary Care Provider Encounter Details Date Type Department Care Team Description 09/13/2018 Telephone Urology at [facility] Crow Galvin Jr., MD [facility] [place] [address] UROLOGY DEPT. [phone] [place], [place] [address] (Wo rk) Social History Tobacco [...] encounter Miscellaneous Notes Telephone Encounter - Viky Ware - 10/07/2018 2:32 PM EDT Pt looking for pain meds. I paged a resident. Telephone Encounter - George Child - 09/13/2018 8:18 AM EST PHONE: [phone] Dr. Galvin/Dr. Nowak Pt had heart catheterization yesterday and states that everything went well. Would like to schedule her PCNL surgery but would like to speak with either Dr. Galvin or She prior to doing so. documented in this encounter Plan of Treatment Upcoming Encounters Date Type Specialty Care Team Description 03/15/2022 Office Visit Neurology Ryann Barfield, [facility] [address] [place], [place] [address] 03/23/2022 Appointment Radiology Hailey Mcclendon MD [facility] [address] [place] [address] 03/23/2022 Laboratory Appointment Lab 03/23/2022 Office Visit Gastroenterology Hailey Mcclendon MD [facility] [address] [place] [address] 05/23/2022 Procedure visit Maxillofacial Surgery Corby Montes MD [facility] [place] [address] documented as of this encounter Visit Diagnoses Not on filedocumented in this encounter Care Teams R Developer Relationship Specialty Start Date End Date Albert Zuleta MD PCP - General Family Medicine 01/17/17 10/26/21 [place] [address] documented as of this encounter
--- OUTSIDE RECORDS SUMMARY | 2022-02-08 01:59 | XMS_ITS | Encounter Summary ---
:1960 Author Organization [facility] [place] [address] Care Team Providers Name Role Phone Albert Zuleta MD Primary Care Provider Encounter Details Date Type Department Care Team Description 08/28/2018 Clinical Support Same Day at [facility] [place] [address] Social History Tobacco Use Types Packs/Day [...] documented as of this encounter Progress Notes Amanda Williamson, BRYAN - 08/28/2018 11:00 AM EST PAT questionnaire reviewed with patient while in Pre Admission testing. Pre- operative instruction booklet reviewed. Patient verbalizes a good understanding of all information reviewed. PLAN: Testing: T&S,labs. Did urine sample in clinic Special medication instructions: Stopped asa 2-5. Taking trulicity injection after surgery. Procedure date: 14. documented in this encounter Plan of Treatment Upcoming Encounters Date Type Specialty Care Team Description 03/15/2022 Office Visit Neurology Ryann Barfield APRN [facility] [address] [place], [place] [address] 03/23/2022 Appointment Radiology Hailey Mcclendon MD [facility] [address] [place] [address] 03/23/2022 Laboratory Appointment Lab 03/23/2022 Office Visit Gastroenterology Hailey Mcclendon MD [facility] [address] [place] [address] 05/23/2022 Procedure visit Maxillofacial Surgery Cobry Montes MD [facility] [address] [place] [address] documented as of this encounter Visit Diagnoses Diagnosis Nephrolithiasis Calculus of kidney documented in this encounter Care Teams Behavioral Therapist Relationship Specialty Start Date End Date Albert Zuleta MD PCP - General Family Medicine 01/17/17 10/26/21 [place] [address] documented as of this encounter
--- OUTSIDE RECORDS SUMMARY | 2022-02-08 01:59 | XMS_ITS | Encounter Summary ---
:1960 Author Organization [facility] [place] [address] Care Team Providers Name Role Phone Albert Zuleta MD Primary Care Provider Encounter Details Date Type Department Care Team Description 07/22/2018 Ancillary Procedure [place] [address] Social History Tobacco Use Types Packs/Day Years Used Date Former Smoker Cigarettes Quit: 07/23/19 17 Smokeless Tobacco: Never Used [...] APRN [facility] [address] [place] [address] 03/23/2022 Appointment Radiology Hailey Mcclendon MD [facility] [place] [address] 03/23/2022 Laboratory Appointment Lab 03/23/2022 Office Visit Gastroenterology Hailey Mcclendon MD [facility] [address] [place] [address] 05/23/2022 Procedure visit Maxillofacial Surgery Corby Montes MD [facility] [address] [place] [address] documented as of this encounter Procedures Procedure Name Priority Date/Time Associated Diagnosis Comme nts REQUEST FOR 2ND STAT 07/22/2018 7:47 PM Result s for this READ CT ABDOMEN AND EST procedur e are in PELVIS the results section. documented in this encounter Results Request For 2nd Read CT Abdomen & Pelvis (07/22/2018 7:47 PM EST) Anatomical Region Laterality Modality Abdomen, Pelvis SO Specimen (Source) Anatomical Location Collection Method / Collectio n Time Received Time / Laterality Volume Impressions 07/22/2018 8:50 PM EST 1. ??Ventral abdominal wall hernia which contains mesenteric fat and a loop of dilated small bowel with a focal transit ion point. This is concerning for low-grade bowel obstruction. The unchang ed morphology of the herniated loop of small bowel within the hernia sac dating back to 06/07/2018 is concerning for possible adherent bowel. There is new fr ee fluid within the hernia sac which may represent acute inflammation. Consider f ollow-up abdominal radiograph to confirm passage of oral contrast distal to this segment. 2. ??Decreased right pelvocaliectasis st atus post nephroureteral stent placement. Unchanged 1.5 cm proximal right ureteral stone. 3. ??Unchanged nonobstructing 1.5 cm lef t renal calculus. 4. ??Hepatic steatosis. Preliminary report signed by: Srinivas Duran at 07/22/2018 8:43 PM I have personally reviewed the image(s) and the residents interpretation and agree with the findings, Tasia Giron MD at 07/22/2018 8:50 PM Narrative 07/22/2018 8:50 PM EST EXAMINATION: ??REQUEST FOR 2ND READ CT ABDOMEN AND PELVIS CLINICAL HISTORY: ??abdominal pain; What Modality is the exam? Diagnostic; Body Part (please add comments as necessary): abdomen; I believe a reinterpretation of this exam may alter care of Patient. Yes. The provided history on the requisition of the outside study include s nausea, midline pain, hernia, clinical concern for incarceration. TECHNIQUE: Helical CT of the abdomen and pelvis was performed without contrast. Oral contrast was administered. COMPARISON: ?? CT angiogram of the abdomen and pelvis 1 09/09/2017. CT abdomen and pelvis 09/16/2004 FINDINGS: The absence of intravenous contrast limi ts the evaluation of solid viscera and vasculature. Lower chest: ??No focal consolidation. N o pleural effusions. Liver: Liver is normal in size and conto ur. There is diffuse low-attenuation of liver, consistent with hepatic steatosis . No focal liver lesions. Bile ducts: Nondilated. Gallbladder: Status post cholecystectomy . Unchanged surgical clip inferior lateral to the liver (series 4 image 48) . Pancreas: Normal. Spleen: Normal. Adrenals: Normal. Kidneys: Unchanged 1.5 cm nonobstructing calculus within the left lower kidney (series 4 image 40). A right-sided nephr oureteral stent is present with distal pigtail within the bladder and proximal pigtail within the right upper pole calyx. There is a unchanged 1.5 cm calcu macrina within the proximal right ureter (series 4 image 44). There is mild right -sided pelvocaliectasis however this is decreased when compared to the study status post nephroureteral stent placement. Urinary Bladder: No bladder calculi. The bladder is decompressed. Vasculature: No aneurysm. Lymph Nodes: There are scattered small s ub-1 cm retroperitoneal lymph nodes. No lymphadenopathy. Bowel: There is a broad-based defect in the anterior midline abdominal wall which contains herniated mesenteric fat and a fluid filled loops of dilated small bowel bowel. The confirmation of t he hernia and loop of small bowel is unchanged when compared to 07/09/2018 an d 06/07/2018. There is a new small amount of free fluid within the posterio r left aspect of the hernia sac (series 4 image 80). The proximal portion of her niated small bowel is dilated (measuring 3 to 4 cm diameter) and there is a focal transition of bowel caliber within the inferior recess of the hernia, best appr eciated on coronal series 6 image 25. There is oral contrast opacification of the stomach and proximal small bowel. Oral contrast does not enter the herniat ed segment of small bowel. Peritoneum and mesentery: No ??free air, or loculated fluid collection. No mesenteric inflammation. Reproductive organs: Status post hystere ctomy. Osseous structures: There is severe bila teral hip osteoarthropathy, characterize by subchondral sclerosis and cystic smith ges, joint space narrowing and marginal osteophytes. There is bilateral sacroili ac degenerative changes characterized by vacuum disc phenomenon and subchondral s clerosis. There are bilateral facet hypertrophic changes in the lower lumbar spine. Procedure Note Tasia Giron MD - 07/22/2018Forma tting of this note might be different from the original. EXAMINATION: REQUEST FOR 2ND READ CT ABD OMEN AND PELVIS CLINICAL HISTORY: abdominal pain; What M odality is the exam? Diagnostic; Body Part (please add comments as necessary): abdomen; I believe a reinterpretation of this exam may alter care of Patient. Yes. The provided history on the requisition of the outside study include s nausea, midline pain, hernia, clinical concern for incarceration. TECHNIQUE: Helical CT of the abdomen and pelvis was performed without contrast. Oral contrast was administered. COMPARISON: CT angiogram of the abdomen and pelvis 1 09/09/2017. CT abdomen and pelvis 09/16/2004 FINDINGS: The absence of intravenous contrast limi ts the evaluation of solid viscera and vasculature. Lower chest: No focal consolidation. No pleural effusions. Liver: Liver is normal in size and conto ur. There is diffuse low-attenuation of liver, consistent with hepatic steatosis . No focal liver lesions. Bile ducts: Nondilated. Gallbladder: Status post cholecystectomy . Unchanged surgical clip inferior lateral to the liver (series 4 image 48) . Pancreas: Normal. Spleen: Normal. Adrenals: Normal. Kidneys: Unchanged 1.5 cm nonobstructing calculus within the left lower kidney (series 4 image 40). A right-sided nephr oureteral stent is present with distal pigtail within the bladder and proximal pigtail within the right upper pole calyx. There is a unchanged 1.5 cm calcu macrina within the proximal right ureter (series 4 image 44). There is mild right -sided pelvocaliectasis however this is decreased when compared to the 8 study status post nephroureteral stent placement. Urinary Bladder: No bladder calculi. The bladder is decompressed. Vasculature: No aneurysm. Lymph Nodes: There are scattered small s ub-1 cm retroperitoneal lymph nodes. No lymphadenopathy. Bowel: There is a broad-based defect in the anterior midline abdominal wall which contains herniated mesenteric fat and a fluid filled loops of dilated small bowel bowel. The confirmation of t he hernia and loop of small bowel is unchanged when compared to 07/09/2018 an d 06/07/2018. There is a new small amount of free fluid within the posterio r left aspect of the hernia sac (series 4 image 80). The proximal portion of her niated small bowel is dilated (measuring 3 to 4 cm diameter) and there is a focal transition of bowel caliber within the inferior recess of the hernia, best appr eciated on coronal series 6 image 25. There is oral contrast opacification of the stomach and proximal small bowel. Oral contrast does not enter the herniat ed segment of small bowel. Peritoneum and mesentery: No free air, o r loculated fluid collection. No mesenteric inflammation. Reproductive organs: Status post hystere ctomy. Osseous structures: There is severe bila teral hip osteoarthropathy, characterize by subchondral sclerosis and cystic smith ges, joint space narrowing and marginal osteophytes. There is bilateral sacroili ac degenerative changes characterized by vacuum disc phenomenon and subchondral s clerosis. There are bilateral facet hypertrophic changes in the lower lumbar spine. IMPRESSION 1. Ventral abdominal wall hernia which c ontains mesenteric fat and a loop of dilated small bowel with a focal transit ion point. This is concerning for low-grade bowel obstruction. The unchang ed morphology of the herniated loop of small bowel within the hernia sac dating back to 06/07/2018 is concerning for possible adherent bowel. There is new fr ee fluid within the hernia sac which may represent acute inflammation. Consider f ollow-up abdominal radiograph to confirm passage of oral contrast distal to this segment. 2. Decreased right pelvocaliectasis stat us post nephroureteral stent placement. Unchanged 1.5 cm proximal right ureteral stone. 3. Unchanged nonobstructing 1.5 cm left renal calculus. 4. Hepatic steatosis. Preliminary report signed by: Srinivas Duran at 07/22/2018 8:43 PM I have personally reviewed the image(s) and the residents interpretation and agree with the findings, Tasia Giron MD at 07/22/2018 8:50 PM Efra Lockhart MD IMG OUTSIDE INTERPRETATION O RDERABLES documented in this encounter Visit Diagnoses Not on filedocumented in this encounter Care Teams Director Broadcast Relationship Specialty Start Date End Date Albert Zuleta MD PCP - General Family Medicine 01/17/17 10/26/21 [address] [facility] [address] documented as of this encounter
--- OUTSIDE RECORDS SUMMARY | 2022-02-08 01:59 | XMS_ITS | Encounter Summary ---
:1960 Author Organization [facility] [place] [address] Care Team Providers Name Role Phone Albert Zuleta MD Primary Care Provider Encounter Details Date Type Department Care Team Description 07/22/2018 Ancillary Procedure Radiology Library at [facility] And venkatesh Gardner [facility] [place] [address] [place] [address] [phone] (Wo rk) Social History Tobacco Use Types [...] Description 03/15/2022 Office Visit Neurology Ryann Barfield, MOTTLER OPERATOR [facility] [address] [place] [place], [place] [address] 03/23/2022 Appointment Radiology Hailey Mcclendon MD [facility] [place] [address] 03/23/2022 Laboratory Appointment Lab 03/23/2022 Office Visit Gastroenterology Hailey Mcclendon MD [facility] [place] [address] 05/23/2022 Procedure visit Maxillofacial Surgery Corby Montes MD [facility] [address] [place] [address] documented as of this encounter Procedures Procedure Name Priority Date/Time Associated Diagnosis Comme nts FILM LIBRARY Routine 07/22/2018 1:51 PM Results f or this STORAGE ONLY CT EST procedure ar e in ABDOMEN the results section. documented in this encounter Results Film Library- Storage Only CT Abdomen (07/22/2018 1:51 PM EST) Specimen (Source) Anatomical Location Collection Method / Collectio n Time Received Time / Laterality Volume Narrative RAD - 07/22/2018 1:51 PM EST This exam is for storage only and is aut o-finalizing. George Rodriguez MD IMG FILM LIBRARY ORDERABLES Performing Organization Address City/State/ZIP Code Phon e Number [place], [place] documented in this encounter Visit Diagnoses Not on filedocumented in this encounter Care Teams O And M Supervisor Relationship Specialty Start Date End Date Albert Zuleta MD PCP - General Family Medicine 01/17/17 10/26/21 [place] [address] documented as of this encounter
--- OUTSIDE RECORDS SUMMARY | 2022-02-08 01:59 | XMS_ITS | Encounter Summary ---
:1960 Author Organization [facility] [place] [address] Care Team Providers Name Role Phone Albert Zuleta MD Primary Care Provider Reason for Referral Diagnostic Test (Routine) - Specialty Diagnoses / Procedures Referred By Contact Refer red To Contact Radiology Diagnoses Cardiomyopathy, unspecified type Pre-operative cardiovascular examination Joni Drew MD [facility] Rad Nuclear Med Procedures NM Pharmacologic Stress CT Component [facility] [place] [address] [place] [address] Fax: Referral ID Status Reason Start Date Expiration Visits Visits Date Requested Authorized [id number] Specialty 08/28/2018 08/28/2019 1 1 Service Requested Reason for Visit Diagnostic Test (Routine) - Closed Specialty Diagnoses / Procedures Referred By Contact Refer red To Contact Radiology Diagnoses Cardiomyopathy, unspecified type Pre-operative cardiovascular examination Joni Drew MD [facility] Rad Nuclear Med Procedures NM Pharmacologic Stress Myocardial Perfusion [facility] [place] [address] [place] [address] Fax: Referral ID Status Reason Start Date Expiration Date Visits V isits Requested Authorized [id number] Closed Specialty 08/28/2018 08/28/2019 4 4 Service Requested Encounter Details Date Type Department Care Team Description 08/29/2018 Hospital Encounter Nuclear Medicine at [facility] Drew rdiomyopathy, unspecified type; Hailey Akhtar MD Pre-operative cardiovascular examination [facility] [address] [place] Cardiology [address] [place], [place] [phone] [facility] Social History Tobacco Use Types Packs/Day Years [...] Description 03/15/2022 Office Visit Neurology Ryann Barfield, PRACTICE ARCHITECT [facility] [address] [place], [place] [address] 03/23/2022 Appointment Radiology Hailey Mcclendon MD [facility] [place] [address] 03/23/2022 Laboratory Appointment Lab 03/23/2022 Office Visit Gastroenterology Hailey Mcclendon MD [facility] [place] [address] 05/23/2022 Procedure visit Maxillofacial Surgery Corby Montes MD [facility] [place] [address] documented as of this encounter Procedures Procedure Name Priority Date/Time Associated Diagnosis Comme nts NM PHARMACOLOGIC Routine 08/29/2018 11:51 Cardiomyopathy, Resu lts for this STRESS CT COMPONENT AM EST unspecified type procedure are in Pre-operative the results cardiovascular section. examination documented in this encounter Results NM Pharmacologic Stress CT Component (08/29/2018 11:51 AM EST) Anatomical Region Laterality Modality Nuclear Medicine Specimen (Source) Anatomical Location Collection Method / Collectio n Time Received Time / Laterality Volume Impressions 08/29/2018 12:19 PM EST 1. ??Moderate ischemia of the anterior and anteroseptal wall, suggest LAD distribution disease. 2. ??No infarct. 3. ??Incidental CT findings as above. I have personally reviewed the image(s) and the residents interpretation and agree with the findings, Leonel Polanco at 08/29/2018 12:19 PM Thank you for letting us participate in the care of this patient. For questions regarding this report, please contact e number below. ? Narrative 08/29/2018 12:19 PM EST EXAMINATION: NM PHARMACOLOGIC STRESS MYOCARDIAL PERFUSION, NM PHARMACOLOGIC STRESS CT COMPONENT CLINICAL HISTORY: 57 yr old woman with a cardiomyopathy of uncertain etiology, limited exertional capacity (< 4 METS) f or preop evaluation TECHNIQUE: During rest, 8.5 mCi of techn etium-99m sestamibi was administered intravenously. Approximately 20 minutes later, SPECT images of the heart were obtained with reconstruction in the shor t, vertical long and horizontal long axis. The patient then received regadenoson in travenously at a dose of 0.4 mg. 20 seconds later, 24.2 mCi of technetium-99 m sestamibi was administered intravenously. Images of the heart were then again obtained with SPECT reconstruction. A low-dose CT scan was acquired for the purpose of attenuation correction COMPARISON: None FINDINGS: Moderate intensity, mid to distal anteri or/anteroseptal wall inducible perfusion defect, which extends to the apex. Functional analysis: Myocardial function: A septal wall motio n abnormality is present in this patient with a left bundle branch block. Left ventricular ejection fraction: 61 % (normal greater than than 50%). Incidental CT findings: 1. ??Coronary and aortic calcification. 2. ??Annular mitral valve calcification. Procedure Note Leonel Polanco MD - 08/29/2018 EXAMINATION: NM PHARMACOLOGIC STRESS RAISSA CARDIAL PERFUSION, NM PHARMACOLOGIC STRESS CT COMPONENT CLINICAL HISTORY: 57 yr old woman with a cardiomyopathy of uncertain etiology, limited exertional capacity (< 4 METS) f or preop evaluation TECHNIQUE: During rest, 8.5 mCi of techn etium-99m sestamibi was administered intravenously. Approximately 20 minutes later, SPECT images of the heart were obtained with reconstruction in the shor t, vertical long and horizontal long axis. The patient then received regadenoson in travenously at a dose of 0.4 mg. 20 seconds later, 24.2 mCi of technetium-99 m sestamibi was administered intravenously. Images of the heart were then again obtained with SPECT reconstruction. A low-dose CT scan was acquired for the purpose of attenuation correction COMPARISON: None FINDINGS: Moderate intensity, mid to distal anteri or/anteroseptal wall inducible perfusion defect, which extends to the apex. Functional analysis: Myocardial function: A septal wall motio n abnormality is present in this patient with a left bundle branch block. Left ventricular ejection fraction: 61 % (normal greater than than 50%). Incidental CT findings: 1. Coronary and aortic calcification. 2. Annular mitral valve calcification. IMPRESSION 1. Moderate ischemia of the anterior and anteroseptal wall, suggest LAD distribution disease. 2. No infarct. 3. Incidental CT findings as above. I have personally reviewed the image(s) and the residents interpretation and agree with the findings, Leonel Polanco at 08/29/2018 12:19 PM Thank you for letting us participate in the care of this patient. For questions regarding this report, please contact e number below. Joni Drew MD IMG NM ORDERABLES documented in this encounter Visit Diagnoses Diagnosis Cardiomyopathy, unspecified type Pre-operative cardiovascular examination documented in this encounter Care Teams Trim Carpenter Relationship Specialty Start Date End Date Albert Zuleta MD PCP - General Family Medicine 01/17/17 10/26/21 [address] [place] [address] documented as of this encounter
--- OUTSIDE RECORDS SUMMARY | 2022-02-08 01:59 | XMS_ITS | Encounter Summary ---
:1960 Author Organization [facility] [place] [address] Care Team Providers Name Role Phone Albert Zuleta MD Primary Care Provider Reason for Visit Reason Comments Abdominal Pain Auth/Cert Specialty Diagnoses / Procedures Referred By Contact Refer red To Contact Diagnoses Ventral hernia Referral ID Status Reason Start Date Expiration Date Visits Requ ested Visits Authorized [id number] 1 1 Encounter Details Date Type Department Care Team Description 07/22/2018 - Hospital Encounter 5 Angela Francisco MD [facility] [place] [address] Ventral hernia, 07/24/2018 [facility] Efra Lockhart MD [facility] [place] [address] [place] [address] Social History Tobacco Use Types Packs/Day Years [...] Sign Reading Time Taken Comments Blood Pressure 149/73 07/24/2018 8:05 AM EST Pulse 64 07/24/2018 8:05 AM EST Temperature 36.2 ??C (97.2 ??F) 07/24/2018 8:05 AM EST Respiratory Rate 20 07/24/2018 8:05 AM EST Oxygen Saturation 98% 07/24/2018 8:05 AM EST Inhaled Oxygen Concentration - - Weight 142.9 kg (315 lb) 07/22/2018 5:01 PM EST Height 167.6 cm (5' 6) 07/22/2018 5:01 PM EST Body Mass Index 50.84 07/22/2018 5:01 PM EST documented in this encounter Discharge Summaries Chau Fleming MD - 07/24/2018 7:44 AM EST Acute Care Surgery Discharge Summary Patient Name: Blossom Samayoa Patient Age: 57 y.o. : 1960 Attending Physician: Efra Lockhart MD Date of Admission: 07/22/2018 Date of Discharge: ID: [id number] y.o.yo pt admitted on 07/22/2018 for incarcerated incisional hernia with bowel obstruciton Other In-hospital Issues: - Acute Pain Secondary Diagnosis: History reviewed. No pertinent past medical history. Allergies: Allergies Allergen Reactions ??? Augmentin [Amoxicillin-Pot Clavulanate] Hives and Itching ??? Cis Free Text Allergy Ketamine. CIS - hallucinations ??? Erythromycin Hives and Itching ??? Macrobid [Nitrofurantoin Monohyd/M-Cryst] Causes depression ??? Sulfa (Sulfonamide Antibiotics) Hives Operations/Procedures: - none HPI: Blossom Samayoa is a 57 y.o. obese female with PMH CHF, HTN, COPD, DMII, IBS, nephrolithiasis, UTI, recent ureteral stent placed, and known abdominal wall hernia who presents with one week abdominalpain that was intermittent that acutely worsened over the past 24 hours becoming more constant and severe. She also reports developing chills and nausea. She went to OSH where she was given IV pain medication and antiemetics which has improved her symptoms. CT scan showed lower abdominal wall incisional hernia containing a loop of bowel with a transition point suggesting obstruction. The patient reports that her hernia was partially reduced at the OSH and she feels her pain improved since that time, however she still has abdominal pain. She had a bowel movement yesterday morning; she has not passedflatus/bowel movement in over 24 hours which is abnormal for her. Denies vomiting, chest pain, melena, headache, shortness of breath, or dysuria. Prior abdominal surgeries include: open cholecystectomyand open total hysterectomy Hospital Course: Patient was admitted to the hospital and underwent a contrast challenge. The patient was advanced toclears and then was advanced to a regular diet. She was passing flatus and her pain resolved. Blossom Samayoa's pain was adequately controlled, s/he was maintaining adequate oxygen saturationon room air, and was hemodynamically stable. S/he was tolerating a diet without abdominal complaintsand voiding adequately. WBC and Hgb were stable. S/he was ambulating. Blossom Samayoa was evaluated by the Surgery Team and deemed medically stable for discharge today. Plan: Neuro: tylenol for pain control CV: STEPHEN Pulm: encourage IS GI: contrast challenge completed. Regular diet Heme: DVT ppx with lovenox Dispo: floor ?? She will be scheduled for follow up on an outpatient basis for elective surgical repair of her hernia. Incidental Radiographic Findings: none Pending Lab Data at Discharge: none Pertinent Lab Data: Recent Labs 07/24/18 0516 07/23/18 0556 07/22/18 1803 WBC 9.0 10.2* 11.6* HGB 11.5* 11.7 12.7 HCT 35.5* 36.5 39.0 PLATELET 188 218 206 PT -- -- 12.0 INR -- -- 1.0 Recent Labs 07/24/18 0455 07/23/18 0556 07/22/18 1803 NA 139 139 139 K 3.8 4.5 4.4 CL 103 100 101 CO2 25 24 24 BUN 7* 8 7* CREATININE 0.59* 0.65* 0.64* GLUCOSE 117 142 138 CALCIUM 10.0 10.2 10.3 Microbiology Data: Procedure Component Value Units Date/Time Urine culture Urine [[id number]] Collected: 07/10/18 1037 Lab Status: Final result Specimen: Urine Updated: 07/11/18 0748 Urine Culture No growth (Less than 1,000 cfu/ml). Urine culture [[id number]] Collected: 07/09/182220 Lab Status: Final result Specimen: Clean Catch Urine Updated: 07/11/18 0748 Urine Culture No growth (Less than 1,000 cfu/ml). Blood culture [[id number]] Collected: 07/09/182002 Lab Status: Final result Specimen: Blood Updated: 07/14/18 230 Blood Culture No growth at 5 days. Blood culture [[id number]] Collected: 07/09/181949 Lab Status: Final result Specimen: Blood Updated: 07/14/18 230 Blood Culture No growth at 5 days. Pertinent Imaging: Xr Fluoro No Rad <1hr - Or Use Result Date: 07/10/2018 This order does not need a radiologist interpretation. Xr Abdomen Flat & Upright Result Date: 07/22/2018 EXAMINATION: XR ABDOMEN FLAT AND UPRIGHT CLINICAL HISTORY: clinically persistent PSBO. assess passage of contrast. Additional history includes ventral abdominal hernia. TECHNIQUE: Standing and supine radiographs of the abdomen COMPARISON: CT of the abdomen and pelvis 07/22/2018 FINDINGS: The visualized lung bases are clear. Surgical clips project over the gallbladder fossa. There is a right-sided nephroureteral stent with proximal pigtail projecting over the right renal contour and distal pigtail projecting of the bladder. The known proximal bilateral ureteral calculi are better characterized on the prior CT. There are no air-filled dilated loops of bowel to suggest obstruction. No free air. There is oral contrast opacification of the colon and rectum, which has progressed from the prior CT wherecontrast was not seen within the colon. Severe bilateral hip osteoarthropathy characterized by jointspace narrowing, subchondral sclerosis and marginal osteophytes. 1. Nonobstructive bowel gas pattern. 2. Interval passage of oral contrast from the small bowel into the large bowel and rectum. Preliminary report signed by: Srinivas Duran at 07/22/2018 11:11 PMI have personally reviewed the image(s) and the residents interpretation and agree with the findings, JAREK BURNS at 07/22/2018 11:33 PM Request For 2nd Read Ct Abdomen & Pelvis Result Date: 07/22/2018 EXAMINATION: REQUEST FOR 2ND READ CT ABDOMEN AND PELVIS CLINICAL HISTORY: abdominal pain; What Modality is the exam? Diagnostic; Body Part (please add comments as necessary): abdomen; I believe a reinterpretation of this exam may alter care of Patient. Yes. The provided history on the requisition of the outside study includes nausea, midline pain, hernia, clinical concern for incarceration. TECHNIQUE: Helical CT of the abdomen and pelvis was performed without contrast. Oral contrast was administered. COMPARISON: CT angiogram of the abdomen and pelvis 07/09/2018. CT abdomen and pelvis 09/16/2004 FINDINGS: The absence of intravenous contrast limits the evaluation of solid viscera and vasculature. Lower chest: No focal consolidation. No pleural effusions. Liver: Liver is normal in size and contour. There is diffuse low-attenuation of liver, consistent with hepatic steatosis. No focal liver lesions. Bile ducts: Nondilated. Gallbladder: Status post cholecystectomy. Unchanged surgical clip inferior lateral to the liver (series 4 image 48). Pancreas: Normal. Spleen: Normal. Adrenals: Normal. Kidneys: Unchanged 1.5 cm nonobstructing calculus within the left lower kidney (series 4 image 40). A right-sided nephroureteral stent is present with distal pigtail within the bladder and proximal pigtail within the right upper pole calyx. There is a unchanged 1.5 cm calculus within the proximal right ureter (series 4 image 44). There is mild right-sided pelvocaliectasis however this is decreased when compared to the 07/09/2018 study status post nephroureteral stent placement. Urinary Bladder: No bladder calc odell. The bladder is decompressed. Vasculature: No aneurysm. Lymph Nodes: There are scattered small sub-1 cm retroperitoneal lymph nodes. No lymphadenopathy. Bowel: There is a broad-based defect in the anterior midline abdominal wall which contains herniated mesenteric fat and a fluid filled loops of dilated small bowel bowel. The confirmation of the hernia and loop of small bowel is unchanged when compared to 07/09/2018 and 06/07/2018. There is a new small amount of free fluid within the posterior left aspect of the hernia sac (series 4 image 80). The proximal portion of herniated small bowel is dilated (measuring 3 to 4 cm diameter) and there is a focal transition of bowel caliber within the inferior recess of the hernia, best appreciated on coronal series 6 image 25. There is oral contrast opacification of the stomach and proximal small bowel. Oral contrast does not enter the herniated segmentof small bowel. Peritoneum and mesentery: No free air, or loculated fluid collection. No mesenteric i nflammation. Reproductive organs: Status post hysterectomy. Osseous structures: There is severe bilateral hip osteoarthropathy, characterize by subchondral sclerosis and cystic changes, joint space narrowing and marginal osteophytes. There is bilateral sacroiliac degenerative changes characterized by vacuum disc phenomenon and subchondral sclerosis. There are bilateral facet hypertrophic changes in the lower lumbar spine. 1. Ventral abdominal wall hernia which contains mesenteric fat and a loop of dilated small bowel with a focal transition point. This is concerning for low- grade bowel obstruction. The unchanged morphology of the herniated loop of small bowel within the hernia sac dating back to 06/07/2018 is concerning for possible adherent bowel. There is new free fluid within the hernia sac which may represent acute inflammation. Consider follow-up abdominal radiograph to confirm passage of oral contrast distal tothis segment. 2. Decreased right pelvocaliectasis status post nephroureteral stent placement. Unchanged 1.5 cm proximal right ureteral stone. 3. Unchanged nonobstructing 1.5 cm left renal calculus. 4. Hepatic steatosis. Preliminary report signed by: Srinivas Duran at 07/22/2018 8:43 PM I have personally reviewed the image(s) and the residents interpretation and agree with the findings, Tasia Giron MD at 07/22/2018 8:50 PM Film Library- Storage Only Ct Abdomen Result Date: 07/22/2018 This exam is for storage only and is auto-finalizing. Film Library- Storage Only Ct Abdomen & Pelvis Result Date: 07/09/2018 This exam is for storage only and is auto-finalizing. Scan Doc: Ct Scan Result Date: 07/09/2018 Ordered by an unspecified provider. Discharge Physical Examination: Vital Signs: Last value Range last 24hrs Temperature Temp: 36.2 ??C (97.2 ??F) Temp: [36.2 ??C (97.2 ??F)-37 ??C (98.6 ??F)] Heart Rate Heart Rate: 64 Heart Rate: [64-76] Blood Pressure BP: 149/73 BP: (94-149)/(48-80) Respiratory Rate Resp: 20 Resp: [17-20] SpO2 SpO2: 98 % SpO2: [96 %-99 %] Physical Exam: GA:??morbidly obese,??NAD, resting comfortably CV: RRR Pulm: unlabored breathing on RA, no use of accessory muscles, no stridor/audible wheezing ABD:??not distended, soft, non tender, no guarding or rebound Extr: warm and well perfused, no notable edema Neuro: no focal deficits Current Medications: The following medications have been prescribed for you. If you notice any adverse reactions to your medications, please contact your primary care physician immediately or go to the nearest Emergency Department. Your Medications Some of the medications listed here do not show instructions, such as how often to take the medication. Ask your doctor or nurse how to use these medications. Specifically ask about these and similar medications: ?? hydroCODone-acetaminophen (VICODIN) 5-500 mg per tablet ?? multivitamin (THERAGRAN) tablet New Medications Dose Details acetaminophen 325 mg Tab Commonly known as: TYLENOL Take 2 tablets by mouth every 6 hours. 650 mg Quantity: 30 tablet Refills: 1 magnesium hydroxide 2,400 mg/10 mL Susp Commonly known as: MILK OF MAGNESIA Take 15 mLs by mouth daily as needed for Constipation. 15 mL Refills: 0 polyethylene glycol 17 gram Pwpk Commonly known as: MIRALAX Take 17 g by mouth daily. 17 g Quantity: 14 each Refills: 0 senna-docusate 8.6-50 mg Tab Commonly known as: PERICOLACE Take 1 tablet by mouth daily. 1 tablet Quantity: 60 tablet Refills: 11 Continued medications, unchanged Dose Details aspirin 81 mg Chew Take 81 mg by mouth daily. 81 mg Quantity: 30 tablet Refills: 3 carvedilol 3.125 mg Tab Commonly known as: COREG TAKE ONE TABLET BY MOUTH TWICE A DAY Refills: 3 gabapentin 600 mg Tab Commonly known as: NEURONTIN TAKE ONE TABLET BY MOUTH THREE TIMES A DAY Refills: 1 glipiZIDE-metFORMIN 5-500 mg Tab Commonly known as: METAGLIP TAKE TWO TABLETS BY MOUTH TWICE A DAY Refills: 3 INCRUSE ELLIPTA 62.5 mcg/actuation Dsdv INHALE ONE PUFF BY MOUTH EVERY DAY Generic drug: umeclidinium Refills: 5 JANUVIA 100 mg Tab TAKE ONE TABLET BY MOUTH EVERY DAY Generic drug: sitaGLIPtin Refills: 1 levalbuterol 45 mcg/actuation Hfaa Commonly known as: [...] BY MOUTH EVERY DAY Refills: 3 TRULICITY 1.5 mg/0.5 mL Pnij INJECT SUBCUTANEOUSLY ONCE WEEKLY FOR BLOOD SUGAR Generic drug: dulaglutide Refills: 5 VICODIN 5-500 mg Tab Generic drug: HYDROcodone-acetaminophen Refills: 0 STOPPED Medications cefPODOXime 200 mg Tab Commonly known as: VANTIN Disposition: home Scheduled Appointments: The following appointments have been scheduled on your behalf: Future Appointments Date Time Provider Department Center 08/28/2018 8:30 AM Crow Galvin Jr., MD [facility] Outpatient Services/Studies: No discharge procedures on file. Special Instructions Given to Patient at Discharge:. An After Visit Summary was printed and given to the patient. Patient Instructions Discharge Instructions You were were admitted and treated for the following diagnosis: incisional hernia with bowel obstruction CALL YOUR PHYSICIAN IF: 1. You have a fever greater than 101F 2. You have diarrhea or vomiting for >24 hours, or stop having bowel movements and passing flatus 3. You have worsening pain, not controlled with your pain medication. 4. You develop redness, swelling, or new drainage from your wounds Prescriptions: - You should continue your home medications - See below for bowel medication you should take to ensure proper bowel movement health Follow up: - You do not need to follow up with the [facility] clinic - You should follow up with Dr. Ace Henry to discuss elective surgery - You should follow up with your PCP to discuss ways to optimize your health. Narcotics: You may be given a prescription for a narcotic medication immediately following your surgery. Narcotics are prescribed for short-term (1-3 days) use to help treat your pain. Narcotics do not reduce inflammation and it [...] are medications that reduce pain and inflammation. To reduce your chance of side effects, it is recommended that you use Tylenol as needed for pain andthen NSAIDs and use narcotics as the last resort. Alternative means of pain relief such as rest and relaxation, positioning, as well as decreasing stimulants such as coffee, tea, soft drinks, and nicotine may also help to alleviate pain. If you continue to experience significant pain 4-5 days after your discharge, it may be necessary matias re-evaluated by your physician. Driving Restrictions: - No driving if you are too sore to enter or exit your vehicle comfortably, or if you are too sore to easily check your blind spot. No driving while using prescription pain medications Activities: - Discuss return to work or school with your provide at your follow up appointment in the trauma clinic. - Increase your activity slowly. If it hurts don't do it, but try again the following day. - You may tire easily, so frequent naps may be necessary.. - Talk with your doctor about when you can return to work or school. - You may take a shower but have someone nearby in case you need help. Bowel Medications: You should try to avoid being constipated or straining to have a bowel movement for the next 4 weeks. Try over the counter options first - use colace twice a day and miralax one to two times a day. If this does not work or you go 48 hours without having a bowel movement try milk of magnesium. You will use different medications and find the right regimen that works for you. Your goal should be to have soft bowel movements that do not require straining. Diet: Eat a well-balanced diet. Fresh fruits, vegetables and fiber-containing foods are recommended. This will assist in wound healing. Recommendations: - Take it easy for two weeks. Remember, If it hurts, don't do it. - Take several slow, short walks each day for the first two weeks, and gradually increase your distance. We recommend at least 4 times a day. Wound Care: - You can shower per usual routine - Do not submerge wounds under water (avoid spas, pools and bathtubs) until fully healed. - Do not use creams, oils, or ointments on the wound. - See follow-up appointments for removal of sutures/tammy. Comfort: - Some soreness can be expected. - Take your pain medication as needed and prescribed. - Taper use of pain medication as pain lessens. Follow up appointments: 1. You will have follow-up appointments at [facility] as indicated in the ???Future Appointments and Orders?? section of your discharge summary. If X-rays or CT scans have been ordered for you prior to thisappointment you will need to report to the Radiology department, desk 3T, 1 hour prior to your clinic appointment time. 2. If you do not have a scheduled follow-up appointment listed at the time of discharge, you will benotified of your scheduled appointment on the next business day. Please call [phone] if you do not hear from us by that time, as your timely follow-up is very important to us. Your care was managed by the Trauma and Acute Care Surgery Team at [facility]. If you have any questions or concerns, please feel free to contact us. Provider Contact Information: General Surgery: [facility] (after business hours): CC: incisional hernia with Primary Care Physician: Albert Zuleta MD Future Appointments Date Time Provider Department Center 08/28/2018 8:30 AM [facility] General Instructions None Your care was managed by the Trauma and Acute Care Surgery Team at [facility]. If you have any questions or concerns, please feel free to contact us. Provider Contact Information: General Surgery Clinic: Nurses line for questions: [facility] (after business hours): CC: incarcerated but non obstructed hernia who presented with progressive pain Albert Zuleta MD [facility] Archana Banda APRN Signed: Chau Fleming MD Department of Surgery 07/24/2018 Acute Care Surgery Pager [phone] documented in this encounter Discharge Instructions Patient InstructionsChau Fleming MD - 07/24/2018 8:59 AM EST Discharge Instructions You were were admitted and treated for the following diagnosis: incisional hernia with bowel obstruction CALL YOUR PHYSICIAN IF: 1. You have a fever greater than 101F 2. You have diarrhea or vomiting for >24 hours, or stop having bowel movements and passing flatus 3. You have worsening pain, not controlled with your pain medication. 4. You develop redness, swelling, or new drainage from your wounds Prescriptions: - You should continue your home medications - See below for bowel medication you should take to ensure proper bowel movement health Follow up: - You do not need to follow up with the [facility] clinic - You should follow up with Dr. Ace Henry to discuss elective surgery - You should follow up with your PCP to discuss ways to optimize your health. Narcotics: You may be given a prescription for a narcotic medication immediately following your surgery. Narcotics are prescribed for short-term (1-3 days) use to help treat your pain. Narcotics do not reduce inflammation and it [...] are medications that reduce pain and inflammation. To reduce your chance of side effects, it is recommended that you use Tylenol as needed for pain andthen NSAIDs and use narcotics as the last resort. Alternative means of pain relief such as rest and relaxation, positioning, as well as decreasing stimulants such as coffee, tea, soft drinks, and nicotine may also help to alleviate pain. If you continue to experience significant pain 4-5 days after your discharge, it may be necessary matias re-evaluated by your physician. Driving Restrictions: - No driving if you are too sore to enter or exit your vehicle comfortably, or if you are too sore to easily check your blind spot. No driving while using prescription pain medications Activities: - Discuss return to work or school with your provide at your follow up appointment in the trauma clinic. - Increase your activity slowly. If it hurts don't do it, but try again the following day. - You may tire easily, so frequent naps may be necessary.. - Talk with your doctor about when you can return to work or school. - You may take a shower but have someone nearby in case you need help. Bowel Medications: You should try to avoid being constipated or straining to have a bowel movement for the next 4 weeks. Try over the counter options first - use colace twice a day and miralax one to two times a day. If this does not work or you go 48 hours without having a bowel movement try milk of magnesium. You will use different medications and find the right regimen that works for you. Your goal should be to have soft bowel movements that do not require straining. Diet: Eat a well-balanced diet. Fresh fruits, vegetables and fiber-containing foods are recommended. This will assist in wound healing. Recommendations: - Take it easy for two weeks. Remember, If it hurts, don't do it. - Take several slow, short walks each day for the first two weeks, and gradually increase your distance. We recommend at least 4 times a day. Wound Care: - You can shower per usual routine - Do not submerge wounds under water (avoid spas, pools and bathtubs) until fully healed. - Do not use creams, oils, or ointments on the wound. - See follow-up appointments for removal of sutures/tammy. Comfort: - Some soreness can be expected. - Take your pain medication as needed and prescribed. - Taper use of pain medication as pain lessens. Follow up appointments: 1. You will have follow-up appointments at [facility] as indicated in the ???Future Appointments and Orders?? section of your discharge summary. If X-rays or CT scans have been ordered for you prior to thisappointment you will need to report to the Radiology department, desk 3T, 1 hour prior to your clinic appointment time. 2. If you do not have a scheduled follow-up appointment listed at the time of discharge, you will benotified of your scheduled appointment on the next business day. Please call [phone] if you do not hear from us by that time, as your timely follow-up is very important to us. Your care was managed by the Trauma and Acute Care Surgery Team at [facility]. If you have any questions or concerns, please feel free to contact us. Provider Contact Information: General Surgery: [facility] (after business hours): CC: incisional hernia with Primary Care Physician: Albert Zuleta MD Future Appointments Date Time Provider Department Center 08/28/2018 8:30 AM Crow Galvin Jr., MD [facility] documented in this encounter Medications at Time of Discharge Medication Sig Dispensed Refills Start Date End Date tiotropium (Spiriva) 18 Inhale 1 capsule into 0 0 02/03/2013 mcg Capsule, the lungs. w/Inhalation Device diclofenac (VOLTAREN) 1 Apply topically 4 0 % Gel times daily as needed. aspirin 81 mg Tablet, Take 81 mg [...] Tablet lactobacillus Take 1 capsule by 0 0 11/2019 rhamnosus, GG, mouth daily. (CULTURELLE) 10 billion cell Capsule polyethylene glycol Take 17 g by mouth [...] mcg/actuation Disk with MOUTH EVERY DAY Device TRULICITY 1.5 mg/0.5 mL INJECT SUBCUTANEOUSLY 5 1 08/19/2018 Pen Injector ONCE WEEKLY FOR BLOOD SUGAR glipiZIDE-metFORMIN TAKE TWO TABLETS BY 3 018 [...] MOUTH TWICE A DAY mg magnesium) Tablet hydroCODone-acetaminoph 0 10/01/2009 0 08/19/2018 en (VICODIN) 5-500 mg per tablet multivitamin 0 10/01/2009 11/06/2018 (THERAGRAN) tablet documented as of this encounter Progress Notes Raffi Mahoney RN - 07/24/2018 12:27 PM EST Blossom Samayoa discharged to home by private car with sister. All belongings sent with patient. BRITNI removed,skin free from pressure ulcers. Discharge instructions, medications, and follow-up appointments reviewed, education provided on hernias, paper prescriptions given to patient, all questions an swered. Patient instructed to call with concerns. Raffi Mahoney RN - 07/24/2018 11:01 AM EST Pt refusing brado, SCD's, bed alarm. Reyna Lopez - 07/23/2018 3:57 PM EST Micheal Encounter Note Patient Name: Blossom Samayoa : [id number] MR#: [id number] Admit Date: 07/22/2018 4:47 PM Hospital Day 1 day Narrative: Visit on routine rounds Assessment: Pt in bed with cane on her bed as well. Intervention and Outcome: introduced self and pt indicated she did not want a visit (Hailey Floyd and Joseph. No thank you.) Follow-up: None planned. Time in Direct Care: 1 min Reyna Mayers 07/23/2018 George Arias MD - 07/23/2018 12:35 PM EST SURGERY RESIDENT PROGRESS NOTE HPI: 57 y.o. obese woman with CHF, HTN, COPD, DMII, IBS, nephrolithiasis, UTI, recently placed ureteral stent, and known abdominal wall hernia who presents with one week of intermittent abdominal pain that acutely worsened over the past 24 hours. The pain at the time of the initial evaluation by our service was reported to be constant. CT imaging from the OSH showed a lower abdominal wall incisional hernia containing a loop of bowel with a transition point suggesting obstruction. The hernia was partiallyreduced at the OSH which she says improved her pain. Overnight events - contrast challenge, NPO mIVF Subjective - doing well this morning - decreased abdominal pain - endorses flatus but no bowel movment Objective: Most Recent Vitals: 07/23/18 0800 BP: 124/51 Pulse: 69 Resp: 18 Temp: 37 ??C (98.6 ??F) SpO2: 98% Labs: Recent Labs 07/23/18 0556 07/22/18 1803 WBC 10.2* 11.6* HGB 11.7 12.7 HCT 36.5 39.0 PLATELET 218 206 Recent Labs 07/23/18 0556 07/22/18 1803 NA 139 139 K 4.5 4.4 CL 100 101 CO2 24 24 BUN 8 7* CREATININE 0.65* 0.64* CALCIUM 10.2 10.3 NEW IMAGING/STUDIES XR Abdomen Flat and Upright IMPRESSION 1. Nonobstructive bowel gas pattern. 2. Interval passage of oral contrast from the small bowel into the large bowel and rectum. PHYSICAL EXAM GA: morbidly obese, NAD, resting comfortably CV: RRR Pulm: unlabored breathing on RA, no use of accessory muscles, no stridor/audible wheezing ABD: not distended, soft, non tender, no guarding or rebound Extr: warm and well perfused, no notable edema Neuro: no focal deficits A/P: Blossom Samayoa is a 57 y.o. morbidly obese woman (BMI 51) with an incarcerated but not obstructed incisional hernia. A contrast challnge was performed and contrast was seen in the colon and rectum. We started her on clears and discontinued maintenance fluid. If she looks well tonight and is tolerating clears we will advance her to a regular diet. She will be scheduled for follow up on an outpatient basis for elective surgical repair of her hernia. Arun Fleming MD Surgery PGY1 07/23/18 12:36 PM I saw and evaluated the patient with Dr. Fleming (resident). I have independently edited the above note, and reviewed the relevant laboratory and radiographic studies. I agree with the details as written. My physical examination confirms the resident's findings. The assessment and plan were formulated in discussion with me at the time of the visit and I agree with them as documented. George Rodriguez MD Rah Villarreal RN - 07/23/2018 6:18 AM EST MDs in to see----- Marco Lazaro RN - 07/22/2018 4:45 PM EST Pt arrived by ambulance with ? Hernia & ? Obstruction. Hx hernias, R renal stent, diabetes, neuropathy, uses a cane at home. C/o mild lower abdominal pain starting yesterday, dull, but sharp RLQ pain upon palpation. Last BM yesterday. Feels like the hernia she had when she came in on 07/09/18. Pt alert & oriented, no acute distress. documented in this encounter H&P Notes Efra Lockhart MD - 07/22/2018 7:09 PM EST General Surgery H&P Note HPI: Blossom Samayoa is a 57 y.o. obese female with PMH CHF, HTN, COPD, DMII, IBS, nephrolithiasis, UTI, recent ureteral stent placed, and known abdominal wall hernia who presents with one week abdominalpain that was intermittent that acutely worsened over the past 24 hours becoming more constant and severe. She also reports developing chills and nausea. She went to OSH where she was given IV pain medication and antiemetics which has improved her symptoms. CT scan showed lower abdominal wall incisional hernia containing a loop of bowel with a transition point suggesting obstruction. The patient reports that her hernia was partially reduced at the OSH and she feels her pain improved since that time, however she still has abdominal pain. She had a bowel movement yesterday morning; she has not passedflatus/bowel movement in over 24 hours which is abnormal for her. Denies vomiting, chest pain, melena, headache, shortness of breath, or dysuria. Prior abdominal surgeries include: open cholecystectomyand open total hysterectomy PMH: No past medical history on file. PSH: Past Surgical History: Procedure Laterality Date ??? PRO CYSTOSCOPY, INSERT URETERAL STENT Right 07/10/2018 CYSTO, STENT PLACEMENT (WRVU 2.82) performed by Viky Sears MD at [facility] MAIN OR ??? PRO CYSTOURETHROSCOPY, URETER CATHETER Right 07/10/2018 CYSTO, RETROGRADE, URETEROPYELOGRAPHY (WRVU 2.37) performed by Viky Sears MD at [facility] MAIN OR MEDICATIONS: No current facility-administered medications on file prior to encounter. Current Outpatient Medications on File Prior to Encounter Medication Sig Dispense Refill ??? cefPODOXime (VANTIN) 200 mg Tablet Take 1 tablet by mouth 2 times daily for 12 days. 24 tablet 0 ??? aspirin 81 mg Tablet, Chewable Take 81 mg by mouth daily. 30 tablet 3 ??? levalbuterol (XOPENEX HFA) 45 mcg/actuation HFA Aerosol Inhaler INHALE TWO PUFFS BY MOUTH EVERY 4 TO 6 HOURS NEEDED 3 ??? INCRUSE ELLIPTA 62.5 mcg/actuation Disk with Device INHALE ONE PUFF BY MOUTH EVERY DAY 5 ??? TRULICITY 1.5 mg/0.5 mL Pen Injector INJECT SUBCUTANEOUSLY ONCE WEEKLY FOR BLOOD SUGAR 5 ??? glipiZIDE-metFORMIN (METAGLIP) 5-500 mg Tablet TAKE TWO TABLETS BY MOUTH TWICE A DAY 3 ??? loratadine (CLARITIN) 10 mg Tablet TAKE ONE TABLET BY MOUTH EVERY DAY NEEDED 3 ??? JANUVIA 100 mg Tablet TAKE ONE TABLET BY MOUTH EVERY DAY 1 ??? gabapentin (NEURONTIN) 600 mg Tablet TAKE [...] TABLET BY MOUTH TWICE A DAY1 ??? hydroCODone-acetaminophen (VICODIN) 5-500 mg per tablet ??? multivitamin (THERAGRAN) tablet ALLERGIES: Allergies Allergen Reactions ??? Augmentin [Amoxicillin-Pot Clavulanate] Hives and Itching ??? Cis Free Text Allergy Ketamine. CIS - hallucinations ??? Erythromycin Hives and Itching ??? Macrobid [Nitrofurantoin Monohyd/M-Cryst] Causes depression ??? Sulfa (Sulfonamide Antibiotics) Hives FAMILY HISTORY: Family History Problem Relation Age of Onset ??? Cancer Father ??? Cancer Sister SOCIAL HISTORY: Social History Socioeconomic History ??? [...] Tobacco Use ??? Smoking status: Former Smoker Types: Cigarettes Last attempt to quit: 07/23/2016 Years since quittin.9 ??? Smokeless tobacco: Never Used Substance and Sexual Activity ??? Alcohol use: No Frequency: Never Comment: 3 X a year ??? Drug use: Yes Types: Marijuana Comment: rarely used, once every few months ??? Sexual activity: No Other Topics Concern ??? Not on file Social History Narrative ??? Not on file REVIEW OF SYSTEMS: 12 point review of system otherwise negative except as above PHYSICAL EXAM: VS: (Temp: [36.3 ??C (97.3 ??F)] ) Temp: 36.3 ??C (97.3 ??F), (Heart Rate: [70- 79] ) Heart Rate: 70,(BP: (102-126)/(50-64) ) BP: 126/50, (Resp: [13-21] ) Resp: 13, (SpO2: [89 %-95 %] ) SpO2: 95 % Body mass index is 50.84 kg/m??. GA: morbidly obese, NAD, resting comfortably CV: RRR Pulm: unlabored breathing on RA, no use of accessory muscles, no stridor/audible wheezing ABD: not distended, soft, tender to deep palpation LLQ, no guarding or rebound Extr: warm and well perfused, no notable edema Neuro: no focal deficits 24 Hr I/O's: No intake/output data recorded. LABS: Recent Labs 07/22/18 1803 WBC 11.6* HGB 12.7 HCT 39.0 PLATELET 206 NEUTROABS 7.07* Recent Labs 07/22/18 1803 NA 139 K 4.4 CL 101 CO2 24 BUN 7* CREATININE 0.64* Recent Labs 07/22/18 1803 CALCIUM 10.3 Recent Labs 07/22/18 1803 GLUCOSE 138 No results for input(s): AMYLASE, BFAMYLASE in the last 168 hours. Recent Labs 07/22/18 1803 AST 31* ALT 20 ALKPHOS 77 BILITOT 0.8 BILIDIR 0.2 Recent Labs 07/22/18 1803 INR 1.0 PT 12.0 No results for input(s): CK in the last 168 hours. MICRO: CARDS/VASC: IMAGING: Request For 2nd Read CT Abdomen & Pelvis Final Result 1. Ventral abdominal wall hernia which contains mesenteric fat and a loop of dilated small bowel with a focal transition point. This is concerning for low-grade bowel obstruction. The unchanged morphology of the herniated loop of small bowel within the hernia sac dating back to 06/07/2018 is concerning for possible adherent bowel. There is new free fluid within the hernia sac which may represent acute inflammation. Consider follow-up abdominal radiograph to confirm passage of oral contrast distal to this segment. 2. Decreased right pelvocaliectasis status post nephroureteral stent placement. Unchanged 1.5 cm proximal right ureteral stone. 3. Unchanged nonobstructing 1.5 cm left renal calculus. 4. Hepatic steatosis. Preliminary report signed by: Srinivas Duran at 07/22/2018 8:43 PM I have personally reviewed the image(s) and the residents interpretation and agree with the findings, Tasia Giron MD at 07/22/2018 8:50 PM SSMENT and RECOMMENDATIONS: 57 y.o. obese female with PMH CHF, HTN, COPD, DMII, IBS, nephrolithiasis, UTI, recent ureteral stent placed, and known abdominal wall hernia who presents with one week abdominal pain that was intermittent that acutely worsened over the past 24 hours becoming more constant. She reports nausea and chills. Last bowel movement in over 24 hours. Leukocytosis 11.6, Lactate 1.9. CT OSH showed lower abdominal wall incisional hernia containing a loop of bowel with a transition point suggesting obstruction. Partially reduced at OSH which she reports improved her pain. Admit to General Surgery Bowel Rest, NPO with mIVF Serial Abdominal Exams Follow Up KUB Will discuss operative planning in AM Conference Will Pfeiffer MD 07/22/2018 [id number] SURGICAL ATTENDING NOTE: Pt seen and examined with the resident staff on presentation to the ED and I agree with the above note and plan with the following additions/modifications. In brief pt is a 57 yo female with a PSHX notable for C/S and open CCY who presents on transfer from OSH with concern for incarcerated ventral hernia. She has a complicated PMHx to include CHF, HTN, COPD, DMII, IBS, nephrolithiasis, UTI with recent ureteral stent placement. Pt states she has had 2-3 days of abdominal pain along with decreased flatus/BM for which she presented to the OSH for evaluation. There she had a CT scan that revealed a ventral hernia with a loop of SB within the scan and a questionable transition point. Of note a prior CT performed in May shows very similar findings as to today's study. On exam she is alert in nad.Abdomen is obese but soft with mild periumbilical ttp. Fascial defect difficult to discern given body habitus. No overlying skin changes. F/u KUB with prior contrast now seen in the colon and rectum. A/P: 57 yo mobidly obese female(BMI 51) with an incarcerated but non obstructed incisional hernia who presents with progressive pain. Pt states this is similar to her last episode in May which resolved spontatneously. Plan is to admit to the surgical service for bowel rest and IVF. No NGT required at thistime. Will have medicine evaluate in the AM for preop risk stratification in the unlikely scenario where she needs urgent surgical intervention during this admission. Given her BMI of 51 pt is at a very high risk for recurrence along with other post op complications secondary to her PMHx. Will discusspossible more elective operative intervention unless she clinically detioriates during this admission. Otherwise as noted above. documented in this encounter ED Notes Saira Stacy RN - 07/22/2018 8:03 PM EST Pt sitting upright on stretcher. Reports abd pain tolerable at this time. Respirations even and non labored. Reports L hip pain getting bad. States she takes scheduled Vicodin. MD aware. No other needsexpressed at this time. NAD at this time. Chrissy Cardoso MD - 07/22/2018 5:45 PM EST Brief Attending Note I cared for the patient with the resident physician. Please see Dr. Richardson's note, associated with the encounter, for more details. HPI: Blossom Samayoa is a 57 y.o. who presents to the ED as a transfer for General Surgery. Seen and admitted here recently for incarcerated surgery, renal failure and positive troponin. Was admitted for several days and discharged home. Was starting to feel better but yesterday started to feel unwellagain. This am had onset of lower abdominal pain and nausea, similar to prior but constant. Went to outside hospital and transferred for surgery eval. No pain currently Last BM yesterday. Thinks passedflatus yesterday but not today. No vomiting, no urinary symptoms. ED Course: Most Recent Vitals: 07/22/18 1701 BP: 102/52 Pulse: 79 Resp: 20 Temp: 36.3 ??C (97.3 ??F) SpO2: 92% Resting comfortably. Abd obese but soft and non-tender without masses on my exam. Limited secondary to habitus. No ext edema. Assessment/plan: General surgery consult. Dispo pending their eval. Clinically well-appearing and asymptomatic. Chrissy Cardoso MD 07/22/18 2751 Chrissy Cardoso MD - 07/22/2018 5:10 PM EST ED Resident Note Blossom Samayoa is an 57 y.o. female who presents to the ED with: Abdominal pain I saw this patient at: 5:10 PM HPI Blossom Samayoa is a 57 y.o. female with history of obesity, type 2 diabetes, abdominal hernia, hypertension and nephrolithiasis for which she currently has ureteral stents in place and is pending anephrostomy tube in August. This morning she woke up with abdominal pain over her hernia site, wasunable to reduce it and presented to [facility] for evaluation. There they were able to reduce it partially, a CT scan done showed a transition point likely obstruction. She had a normal bowel movement yesterday and was passing flatus yesterday but she has not had a bowel movement and is not passing flatus today. She reports her pain is now improving from prior though she is still significantly tender over her hernia. She has been afebrile, nauseated but not vomiting, no chest pain or shortness of breath, abdominal pain as above, no change in her urinary symptoms. Review of Systems: Pertinent positives and negatives are included in the history of present illness, otherwise 10 systems are reviewed and negative PMH, PSH, MEDICATIONS and SH were all reviewed in the chart Physical Exam: Temp: [36.3 ??C (97.3 ??F)] Heart Rate: [70-79] Resp: [13-21] BP: (102-126)/(50-64) SpO2: [89 %-95 %] Heart Rate from SPO2: [70 bpm-73 bpm] Physical Exam Constitutional: She appears well-developed and well-nourished. No distress. HENT: Head: Normocephalic and atraumatic. Eyes: Conjunctivae and EOM are normal. Neck: Normal range of motion. Neck supple. Cardiovascular: Normal rate and regular rhythm. Pulmonary/Chest: Effort normal. No respiratory distress. Abdominal: Soft. She exhibits no distension. There is tenderness (Left LQ tenderness over hernia. ).There is no rebound and no guarding. A hernia is present. Reducible abdominal wall hernia Musculoskeletal: Normal range of motion. She exhibits no edema or deformity. Neurological: She is alert. She exhibits normal muscle tone. Skin: Skin is warm and dry. She is not diaphoretic. No erythema. No pallor. Nursing note and vitals reviewed. Labs: I have reviewed the labs and imaging and they are significant for: Recent Results (from the past 24 hour(s)) Hepatic Function Panel Result Value Ref Range Total Protein 7.4 6.1 - 8.0 gm/dL Albumin 3.9 3.2 - 5.2 gm/dL AST 31 (H) 0 - 30 unit/L ALT 20 0 - 30 unit/L Alk Phos 77 40 - 104 unit/L Total Bilirubin 0.8 0.2 - 1.3 mg/dL Bili, Direct 0.2 0.0 - 0.3 mg/dL Basic Metabolic Panel (non-fasting) Result Value Ref Range Glucose Lvl 138 65 - 199 mg/dL BUN 7 (L) 8 - 18 mg/dL Creatinine 0.64 (L) 0.70 - 1.20 mg/dL Sodium 139 135 - 145 mmol/L Potassium 4.4 3.5 - 5.0 mmol/L Chloride 101 98 - 107 mmol/L CO2 24 22 - 31 mmol/L Anion Gap 14 5 - 15 mmol/L Calcium 10.3 8.5 - 10.5 mg/dL eGFR 98 >=60 mL/min/1.73 m?? eGFR 114 >=60 mL/min/1.73 m?? Lipase Result Value Ref Range Lipase 42 0 - 60 unit/L Prothrombin Time Result Value Ref Range PT 12.0 9.4 - 12.5 sec INR 1.0 Hemogram Result Value Ref Range WBC 11.6 (H) 4.0 - 9.5 x10(3)/mcL RBC 4.05 4.00 - 5.21 x10(6)/mcL Hemoglobin 12.7 11.7 - 15.5 gm/dL Hematocrit 39.0 35.7 - 45.8 % MCV 96.3 (H) 82.6 - 94.4 fL MCH 31.4 27.1 - 32.0 pg MCHC 32.6 31.7 - 35.0 gm/dL Platelets 206 145 - 357 x10(3)/mcL RDWSD 45.4 37.0 - 46.0 fL RDWCV 12.8 11.5 - 14.1 % MPV 10.8 7.6 - 12.9 fL nRBC % Auto 0.0 % nRBC Abs Auto 0.000 0.000 - 0.000 x10(3)/mcL Differential, Automated Result Value Ref Range Neutrophils % 61.1 % Neutr Abs (ANC) 7.07 (H) 1.70 - 6.10 x10(3)/mcL Lymphocytes % 30.1 % Lymphocytes Abs 3.5 (H) 0.9 - 3.2 x10(3)/mcL Monocytes % 5.7 % Monocyte Abs 0.7 0.3 - 0.9 x10(3)/mcL Eosinophils % 2.4 % Eosinophils Abs 0.3 0.0 - 0.4 x10(3)/mcL Basophils % 0.2 % Basophils Abs 0.0 0.0 - 0.1 x10(3)/mcL Immature Gran % 0.50 % Irina Gran Abs 0.06 (H) 0.00 - 0.04 x10(3)/mcL BLOOD GAS 2 VENOUS Result Value Ref Range pH Claudy 7.36 7.32 - 7.42 pCO2 Claudy 48 41 - 51 mmHg pO2 Claudy 56 (H) 25 - 40 mmHg HCO3 Claudy 26.4 mmol/L BE Claudy 0.9 mmol/L Hgb Blood Gas 13.5 11.7 - 15.5 gm/dL O2HB Claudy 88.0 % COHB Claudy 0.7 % METHB Claudy 0.4 <=1.5 % Na Whole Blood 140 135 - 145 mmol/L K Whole Blood 4.4 3.5 - 5.0 mmol/L ICa Whole Blood 1.33 1.15 - 1.33 mmol/L CL Whole Blood 104 98 - 107 mmol/L Gluc Whole Bld 145 65 - 199 mg/dL Lactate WB 1.9 0.5 - 2.2 mmol/L BGas Source Venous Imaging: Request For 2nd Read CT Abdomen & Pelvis Final Result 1. Ventral abdominal wall hernia which contains mesenteric fat and a loop of dilated small bowel with a focal transition point. This is concerning for low-grade bowel obstruction. The unchanged morphology of the herniated loop of small bowel within the hernia sac dating back to 06/07/2018 is concerning for possible adherent bowel. There is new free fluid within the hernia sac which may represent acute inflammation. Consider follow-up abdominal radiograph to confirm passage of oral contrast distal to this segment. 2. Decreased right pelvocaliectasis status post nephroureteral stent placement. Unchanged 1.5 cm proximal right ureteral stone. 3. Unchanged nonobstructing 1.5 cm left renal calculus. 4. Hepatic steatosis. Preliminary report signed by: Srinivas Duran at 07/22/2018 8:43 PM I have personally reviewed the image(s) and the residents interpretation and agree with the findings, Tasia Giron MD at 07/22/2018 8:50 PM Abdomen Flat & Upright (Results Pending) ED Course: ED Course as of Jul 22 2209SunJul 22, 2018 173 BP: 102/52 173 Temp: 36.3 ??C (97.3 ??F) 173 Heart Rate: 79 1736 Resp: 20 173 SpO2: 92 % 1735 Pain Level: 2 1909 Lactate WB: 1.9 1909 Glucose Lvl: 138 1909 BUN: (!) 7 1909 Creatinine: (!) 0.64 1909 Sodium: 139 1909 Potassium: 4.4 1909 Chloride: 101 1909 WBC: (!) 11.6 1909 Hemoglobin: 12.7 1909 Platelets: 206 1909 INR: 1.0 1909 Lipase: 42 1909 CMP 210 Request For 2nd Read CT Abdomen & Pelvis MDM & Assessment/Plan: Assessment: 57 y.o. female with Abdominal Pain 57-year-old female with history of obesity, nephrolithiasis with a stent, and known abdominal herniathat is presenting with abdominal pain with imaging consistent with partial small bowel obstruction with a focal point around her hernia. Somewhat perplexing is the consistency of this CT scan with prior studies, however she does endorse no bowel movements and she has not been passing flatus today. Otherwise vital signs normal on arrival, lactate is normal, her CBC is remarkable only for very mildleukocytosis, otherwise CMP is within normal limits. Surgery is seen the patient and is planning to admit. Note was dictated with Onzo software Jose Maria Richardson MD Resident 07/22/18 2212 ED ATTENDING ATTESTATION NOTE The patient was seen in conjunction with Dr. Richardson, the resident physician. I have independently performed the lindo portions of the history and physical exam. I have reviewed the nursing notes, vital signs, and all diagnostic studies personally including labs, imaging studies and EKGs. I have discussedthe details of the case with the resident and agree with the assessment and plan as described in theresident note above unless noted otherwise below. Chrissy Cardoso MD 07/24/18 1244 documented in this encounter Miscellaneous Notes Initial Assessments - Dmitry Escudero MSW - 07/24/2018 10:39 AM EST Office of Care Management Initial Assessment TYRONE Lucas reviewed record and discussed patient with Care Team. Source of Information: Patient, Chart, Treatment Team Introduced self/reviewed role; services accepted. Reason for Hospitalization: Reason for Admission as Stated by Patient: Abd. Pain again ?? 57 y.o.??obese??female??with PMH CHF, HTN, COPD, DMII, IBS, ??nephrolithiasis, UTI, recent ureteral stent placed, and known abdominal wall hernia??who presents with one week abdominal pain that was intermittent that acutely worsened over the past 24 hours becoming more constant and severe. ?? History reviewed. No pertinent past medical history. Hospitalizations Within the Past 30 Days: na Anticipated Length Of Stay (If known): Expected Length of Hospitalization: 3 Current Decision-Making Capacity: A&OX4 Advance Care Planning: none written wants to make her sister Mona Samayoa [phone] her MPOA Current Coping/Education/Information Needs: CM explained VNA/outpt herpay Current Functional Ability: SBA Functional Status Prior to Admission: drives self, Has FWW and cane at home. 100%adl lacy Home Environment: .Lives alone in first floor [address] Social & Family Supports/Community Resources: lists several friend to assist her at home Behavioral Health History: denied Substance Use/Abuse: ??? Smoking status: Former Smoker ? Types: Cigarettes ? Last attempt to quit: 07/23/2016 ? Years since quittin.9 ??? Smokeless tobacco: Never Used Substance and Sexual Activity ??? Alcohol use: No ? Frequency: Never ? Comment: 3 X a year ??? Drug use: Yes ? Types: Marijuana ? Comment: rarely used, once every few months Other Pertinent/Service Specific Information: former [facility]/Prescription Coverage: Primary Insurance: MEDICARE Secondary Insurance: N/A Prescription Coverage: no Preferred Pharmacy: [facility] Primary Care Provider: Albert Zuleta MD [phone] Patient/Caregiver Goals of Treatment: home with MD follow up poss surg 09/14 Potential Needs for Transition of Care: Rehab/SNF: declned Home Health: declined DME: ordering shower chair; owns FWW and cane Dialysis: na Community Resources: na Transportation: May need help with a ride Anticipated Barriers to Discharge/Special Considerations: na Assessment: 57 y.o.??obese??woman??with CHF, HTN, COPD, DMII, IBS, ??nephrolithiasis, UTI, recently placed ureteral stent, and known abdominal wall hernia??who presents with one week of intermittent abdominal pain that acutely worsened over the past 24 hours. The pain at the time of the initial evaluation by our service was reported to be constant. CT imaging from the OSH showed a lower abdominal wall incisional hernia containing a loop of bowel with a transition point suggesting obstruction. The hernia was partially reduced at the OSH which she says improved her pain. Plan: Likely home with support and follow up. A member of the Care Management team will continue to monitor progress, follow for continuity of care and assist with transition of care planning. TYRONE Lucas Pager: [phone] Plan of Care - Abelardo Catalan RN - 07/24/2018 7:01 AM EST Problem: Patient Care Overview Goal: Plan of Care Review 07/23/181999 Coping/Psychosocial Plan Of Care Reviewed With patient OUTCOME EVALUATION NOTE: OUTCOME SUMMARY: Patient alert and oriented. Denies pain. Ambulates with stand by and cane. PLAN MOVING FORWARD: Continue to monitor pain. Monitor for bowel movements. Continue on clear liquid diet until physicianchanges orders. INDIVIDUALIZED FALL PREVENTION INTERVENTIONS: Patient-specific fall risk factors per assessment: [current deficits]: Patient walks with a cane baseline which makes her a moderate fall risk. Assistance [level of assistance required for transfers and ambulation]: 1 Supervision [direct monitoring required during toileting and ADLs]: Stand by with cane Surveillance [continuous indirect monitoring]: Purposeful rounding Patient-specific fall prevention interventions for sensory deficits provided, if applicable: [X] N/A CPG GOAL OUTCOME EVALUATION: Goal: Individualization & Mutuality 07/23/18 0118 Mutuality/Individual Preferences What Anxieties, Fears or Concerns Do You Have About Your Health or Care? nothing,now--- What Questions Do You Have About Your Health or Care? nothing---- What Information Would Help Us Give You More Personalized Care? Nothing--- Goal: Fall Prevention-Safe Patient Handling 07/23/18199907/24/18 0125 Francois Fall Risk History of Falling 25 -- Secondary Diagnosis 15 -- Ambulatory Aids 15 -- Intravenous Therapy/Heparin/Saline Lock 20 -- Gait/Transferring 20 -- Mental Status 0 -- Score 95 -- OTHER Francois Fall Risk High -- Restraint Interventions Safety Promotion/Fall Prevention activity supervised -- Positioning Body Position independent -- Activity Activity Type -- ambulated to bathroom Activity Assistance Provided -- independent Assistive Device Utilized -- none Goal: Infection Control 07/23/181999 Safety Interventions Isolation Precautions standard precautions maintained Infection Prevention environmental surveillance performed Coping Strategies Supportive Measures active listening utilized Goal: Discharge Needs Assessment 07/23/18 0123 Living Environment Transportation Available family or friend will provide Plan of Care - Roro Casiano RN - 07/23/2018 6:09 PM EST Problem: Patient Care Overview Goal: Plan of Care Review Outcome: Ongoing (Interventions Implemented as Appropriate) 07/23/18 0800 Coping/Psychosocial Plan Of Care Reviewed With patient OUTCOME EVALUATION NOTE: OUTCOME SUMMARY: Pt AAOx4, AVSS, complaints of headache pain treated w/ 5mg oxy w/ effect. Passing flatus, toleratingclear liquid diet well. Up to bathroom SBA w/ cane. 2L 02 via NC while napping.Treated w/ 2 units ofinsulin x2. Sister at bedside. PLAN MOVING FORWARD: Discharge tomorrow if pt tolerates regular diet INDIVIDUALIZED FALL PREVENTION INTERVENTIONS: Patient-specific fall risk factors per assessment: impaired mobility Assistance: SBA w/ cane Supervision: Independent Surveillance: Bed locked in low position, call leigh within reach, purposeful hourly rounding, clutter free environment, family at bedside Patient-specific fall prevention interventions for sensory deficits provided: N/A CPG GOAL OUTCOME EVALUATION: Continue care plan as documented. Plan of Care - Rah Villarreal RN - 07/23/2018 4:19 AM EST Problem: Patient Care Overview Goal: Plan of Care Review Outcome: Ongoing (Interventions Implemented as Appropriate) 07/22/182338 Coping/Psychosocial Plan Of Care Reviewed With patient OUTCOME EVALUATION NOTE: OUTCOME SUMMARY: From ER at 2300----Pt is NPO for Surgery in am--Given 0.2mg Dilaudid IV and 1 Vicodin for adequate pain control in night--Abd. Pain was OK,but main pain from chronic left hip---Sleeping between care--SBA to bathroom to void---Pt in good spirits--- PLAN MOVING FORWARD: NPO after midnight for surgery in A.M.--- INDIVIDUALIZED FALL PREVENTION INTERVENTIONS: Patient-specific fall risk factors per assessment: [current deficits]: Uses cane--Hx of falling and generalized weakness---- Assistance [level of assistance required for transfers and ambulation]: SBA/PRN--- Supervision [direct monitoring required during toileting and ADLs]: RN/ROXANNA--- Surveillance [continuous indirect monitoring]: TAY and hourly rounds--Q4hr blood sugars--- Patient-specific fall prevention interventions for sensory deficits provided, if applicable: [X] Yes CPG GOAL OUTCOME EVALUATION: Goal: Individualization & Mutuality Outcome: Ongoing (Interventions Implemented as Appropriate) 07/23/18 0118 Mutuality/Individual Preferences What Anxieties, Fears or Concerns Do You Have About Your Health or Care? nothing,now--- What Questions Do You Have About Your Health or Care? nothing---- What Information Would Help Us Give You More Personalized Care? Nothing--- Goal: Fall Prevention-Safe Patient Handling Outcome: Ongoing (Interventions Implemented as Appropriate) 07/22/182338 Francois Fall Risk History of Falling 25 Secondary Diagnosis 15 Ambulatory Aids 15 Intravenous Therapy/Heparin/Saline Lock 20 Gait/Transferring 20 Mental Status 0 Score 95 OTHER Francois Fall Risk High Restraint Interventions Safety Promotion/Fall Prevention activity supervised;nonskid shoes/slippers when out of bed;safety round/check completed Goal: Infection Control Outcome: Ongoing (Interventions Implemented as Appropriate) 07/22/182338 Safety Interventions Isolation Precautions standard precautions maintained Goal: Discharge Needs Assessment Outcome: Ongoing (Interventions Implemented as Appropriate) 07/23/18 0123 Living Environment Transportation Available family or friend will provide documented in this encounter Plan of Treatment Upcoming Encounters Date Type Specialty Care Team Description 03/15/2022 Office Visit Neurology Ryann Barfield APRN [facility] [address] [place] [address] 03/23/2022 Appointment Radiology Hailey Mcclendon MD [facility] [address] [place] [address] 03/23/2022 Laboratory Appointment Lab 03/23/2022 Office Visit Gastroenterology Hailey Mcclendon MD [facility] [address] [place] [address] 05/23/2022 Procedure visit Maxillofacial Surgery Corby Montes MD [facility] [address] [place] [address] documented as of this encounter Procedures Procedure Name Priority Date/Time Associated Comments Diagnosis POCT GLUCOSE Routine 07/24/2018 12:09 Results for this PM EST procedure are i n the results section. POCT GLUCOSE Routine 07/24/2018 7:51 AM Results f or this EST procedure are i n the results section. HEMOGRAM STAT 07/24/2018 5:16 AM Results f or this EST procedure are i n the results section. DIFFERENTIAL, STAT 07/24/2018 5:16 AM Results for this AUTOMATED EST procedure are i n the results section. CBC (WITH DIFF) STAT 07/24/2018 5:16 AM EST BASIC METABOLIC PANEL Routine 07/24/2018 4:55 AM Results for this (NON-FASTING) EST procedure are in the results section. POCT GLUCOSE Routine 07/24/2018 3:37 AM Results f or this EST procedure are i n the results section. POCT GLUCOSE Routine 07/23/2018 11:43 Results for this PM EST procedure are i n the results section. POCT GLUCOSE Routine 07/23/2018 7:41 PM Results f or this EST procedure are i n the results section. POCT GLUCOSE Routine 07/23/2018 4:42 PM Results f or this EST procedure are i n the results section. POCT GLUCOSE Routine 07/23/2018 12:07 Results for this PM EST procedure are i n the results section. POCT GLUCOSE Routine 07/23/2018 7:40 AM Results f or this EST procedure are i n the results section. HEMOGRAM STAT 07/23/2018 5:56 AM Results f or this EST procedure are i n the results section. DIFFERENTIAL, STAT 07/23/2018 5:56 AM Results for this AUTOMATED EST procedure are i n the results section. CBC (WITH DIFF) STAT 07/23/2018 5:56 AM EST BASIC METABOLIC PANEL Routine 07/23/2018 5:56 AM Results for this (NON-FASTING) EST procedure are in the results section. POCT GLUCOSE Routine 07/23/2018 3:57 AM Results f or this EST procedure are i n the results section. POCT GLUCOSE Routine 07/23/2018 12:28 Results for this AM EST procedure are i n the results section. POCT GLUCOSE Routine 07/22/2018 10:34 Results for this PM EST procedure are i n the results section. XR ABDOMEN FLAT AND STAT 07/22/2018 10:24 Resu lts for this UPRIGHT PM EST procedure are i n the results section. REQUEST FOR 2ND READ STAT 07/22/2018 7:47 PM R esults for this CT ABDOMEN AND PELVIS EST proced ure are in the results section. BLOOD GAS 2 VENOUS Routine 07/22/2018 6:05 PM Res ults for this EST procedure are i n the results section. HEMOGRAM STAT 07/22/2018 6:03 PM Results f or this EST procedure are i n the results section. DIFFERENTIAL, STAT 07/22/2018 6:03 PM Results for this AUTOMATED EST procedure are i n the results section. PROTHROMBIN TIME STAT 07/22/2018 6:03 PM Resul ts for this EST procedure are i n the results section. CBC (WITH DIFF) STAT 07/22/2018 6:03 PM EST LIPASE STAT 07/22/2018 6:03 PM Results f or this EST procedure are i n the results section. HEPATIC FUNCTION STAT 07/22/2018 6:03 PM Resul ts for this PANEL EST procedure are i n the results section. BASIC METABOLIC PANEL STAT 07/22/2018 6:03 PM Results for this (NON-FASTING) EST procedure are in the results section. documented in this encounter Results POCT Glucose (07/24/2018 12:09 PM EST) athologist Signature POC Glucose 137 65 - 199 [facility] Comment: Supplemental ranges: <140 mg/dL before meals <180 mg/dL all other times of the day Specimen Anatomical Collection Method Collection Time Receive d Time (Source) Location / / Volume Laterality Blood specimen 07/24/2018 12:09 9 (specimen) PM EST 12:09 PM EST Efra Lockhart MD POINT OF CARE TEST ORDERABLE S Performing Organization Address City/State/ZIP Code Phon e Number [address] POCT Glucose (07/24/2018 7:51 AM EST) athologist [facility] POC Glucose 162 65 - 199 [facility] mg/dL [facility] Comment: Supplemental ranges: <140 mg/dL before meals <180 mg/dL all other times of the day Specimen Anatomical Collection Method Collection Time Receive d Time (Source) Location / / Volume Laterality Blood specimen 07/24/2018 7:51 AM 019 7:51 (specimen) EST AM EST Efra Lockhart MD POINT OF CARE TEST ORDERABLE S Performing Organization Address City/State/[place] [address] (ABNORMAL) Differential, Automated (07/24/2018 5:16 AM EST) [facility] gist Method Time Signature Neutrophils % 48.3 % [facility] Neutr Abs (ANC) 4.32 1.70 - [facility] 6.10 [facility] x10(3)/[facility] LABORATORY Lymphocytes % 41.5 % [facility] Lymphocytes Abs 3.7 (H) 0.9 - 3.2 [facility] x10(3)/[facility] LABORATORY Monocytes % 6.9 % [facility] Monocyte Abs 0.6 0.3 - 0.9 [facility] x10(3)/[facility] LABORATORY Eosinophils % 2.7 % [facility] Eosinophils Abs 0.2 0.0 - 0.4 [facility] x10(3)/[facility] LABORATORY Basophils % 0.3 % [facility] Basophils Abs 0.0 0.0 - 0.1 [facility] x10(3)/[facility] LABORATORY Immature Gran % 0.30 % [facility] Comment: Immature granulocytes(IG's)percentage an d absolute count will include metamyelocytes, myelocytes, and promyelo cytes. Blood smears from CBCs yielding IG's will be scanned manually for concor dance. If this scan disagrees with the automated IG or if promyelocytes are not ed, a manual differential will be performed. Irina Gran Abs 0.03 0.00 - 0.04 x10(3)/[facility]ORY Specimen Anatomical Collection Method Collection Time Receive d Time (Source) Location / / Volume Laterality Blood specimen 07/24/2018 5:16 AM 019 5:24 (specimen) EST AM EST Resulting Agency Comment Spec In Lab Ted Rajan MD HEMATOLOGY ORDERABLES Performing Organization Address City/State/ZIP Code Phon e Number [place] [phone] (ABNORMAL) Hemogram (07/24/2018 5:16 AM EST) Analysis Performed At Patho logist Time Signature WBC 9.0 4.0 - 9.5 [facility] x10(3)/[facility] LABORATORY RBC 3.60 (L) 4.00 - [facility] 5.21 [facility] x10(6)/[facility] LABORATORY Hemoglobin 11.5 (L) 11.7 - [facility] 15.5 gm/dL [facility] Hematocrit 35.5 (L) 35.7 - [facility] 45[facility]8 % [facility] MCV 98.6 (H) 82.6 - [facility] 94.4 fL [facility] MCH 31.9 27.1 - [facility] 32.0 pg [facility] MCHC 32.4 31.7 - [facility] 35.0 gm/dL [facility] Platelets 188 145 - 357 [facility] x10(3)/[facility] LABORATORY RDWSD 45.1 37.0 - [facility] 46.0 [facility] LABORATORY RDWCV 12.4 11.5 - [facility] 14.1 % [facility] MPV 10.1 7.6 - 12.9 [facility] LABORATORY nRBC % Auto 0.0 % [facility] nRBC Abs Auto 0.000 0.000 - [facility] 0.000 [facility] x10(3)/[facility] LABORATORY Specimen Anatomical Collection Method Collection Time Receive d Time (Source) Location / / Volume Laterality Blood specimen 07/24/2018 5:16 AM 019 5:24 (specimen) EST AM EST Resulting Agency Comment Spec In Lab Ted Rajan MD HEMATOLOGY ORDERABLES Performing Organization Address City/State/[place] [address] (ABNORMAL) Basic Metabolic Panel (non-fasting) (07/24/2018 4:55 AM EST) P athologist Signature Glucose Lvl 117 65 - 199 [facility] mg/dL [facility] Comment: Diabetes: >=200 mg/dL plus symp toms BUN 7 (L) 8 - 18 mg/dL [facility] Creatinine 0.59 (L) 0.70 - 1.20 mg/dL [facility] Sodium 139 135 - 145 mmol/L [facility] Potassium 3.8 3.5 - 5.0 mmol/L [facility] Comment: Please note: ??Patients with WBC >100,00 0 may have falsely elevated Potassium levels. ??For accurate Potassium quantif ication in these patients send serum separator tube (gold top) for subsequent determinations. ??Contact the Clinical Chemistry Laboratory if there are any qu estions. Chloride 103 98 - 107 mmol/L [facility] CO2 25 22 - 31 mmol/L [facility] Anion Gap 11 5 - 15 mmol/L [facility] Calcium 10.0 8.5 - 10.5 mg/dL [facility] Estimated GFR 101 >=60 mL/min/1.73 m?? [facility] Comment: The eGFR was calculated using the CKD-EP I equation. As with all creatinine based estimates of kidney function, eGFR values calculated with the CKD-EPI equation are not accurate in patients wi th acute kidney failure, extremes of body mass or the acutely ill. http://[employer]/[facility] eGFR 117 >=60 mL/min/1.73 m?? [facility] Comment: The eGFR was calculated using the CKD-EP I equation. As with all creatinine based estimates of kidney function, eGFR values calculated with the CKD-EPI equation are not accurate in patients wi th acute kidney failure, extremes of body mass or the acutely ill. http://[employer]/[facility] Specimen Anatomical Collection Method Collection Time Receive d Time (Source) Location / / Volume Laterality Blood specimen 07/24/2018 4:55 AM 019 5:25 (specimen) EST AM EST Resulting Agency Comment Spec In Lab Chrissy Cardoso MD CHEMISTRY ORDERABLES Performing Organization Address City/[facility]/ZIP Code Phon e Number [address] POCT Glucose (07/24/2018 3:37 AM EST) athologist Signature POC Glucose 121 65 - 199 [facility] mg/dL [facility] Comment: Supplemental ranges: <140 mg/dL before meals <180 mg/dL all other times of the day Specimen Anatomical Collection Method Collection Time Receive d Time (Source) Location / / Volume Laterality Blood specimen 07/24/2018 3:37 AM 019 3:37 (specimen) EST AM EST Efra Lockhart MD POINT OF CARE TEST ORDERABLE S Performing Organization Address City/[facility]/ZIP Code Phon e Number [address] POCT Glucose (07/23/2018 11:43 PM EST) athologist Signature POC Glucose 121 65 - 199 [facility] mg/dL [facility] Comment: Supplemental ranges: <140 mg/dL before meals <180 mg/dL all other times of the day Specimen Anatomical Collection Method Collection Time Receive d Time (Source) Location / / Volume Laterality Blood specimen 07/23/2018 11:43 9 (specimen) PM EST 11:43 PM EST Efra Lockhart MD POINT OF CARE TEST ORDERABLE S Performing Organization Address City/State/ZIP Code Phon e Number [address] POCT Glucose (07/23/2018 7:41 PM EST) athologist Signature POC Glucose 117 65 - 199 [facility] mg/dL [facility] Comment: Supplemental ranges: <140 mg/dL before meals <180 mg/dL all other times of the day Specimen Anatomical Collection Method Collection Time Receive d Time (Source) Location / / Volume Laterality Blood specimen 07/23/2018 7:41 PM 019 7:41 (specimen) EST PM EST Efra Lockhart MD POINT OF CARE TEST ORDERABLE S Performing Organization Address City/[facility]/ZIP Code Phon e Number [address] POCT Glucose (07/23/2018 4:42 PM EST) athologist Signature POC Glucose 112 65 - 199 [facility] mg/dL [facility] Comment: Supplemental ranges: <140 mg/dL before meals <180 mg/dL all other times of the day Specimen Anatomical Collection Method Collection Time Receive d Time (Source) Location / / Volume Laterality Blood specimen 07/23/2018 4:42 PM 019 4:42 (specimen) EST PM EST Efra Lockhart MD POINT OF CARE TEST ORDERABLE S Performing Organization Address City/[facility]/ZIP Code Phon e Number [address] POCT Glucose (07/23/2018 12:07 PM EST) athologist Signature POC Glucose 187 65 - 199 [facility] mg/dL [facility] Comment: Supplemental ranges: <140 mg/dL before meals <180 mg/dL all other times of the day Specimen Anatomical Collection Method Collection Time Receive d Time (Source) Location / / Volume Laterality Blood specimen 07/23/2018 12:07 9 (specimen) PM EST 12:07 PM EST Efra Lockhart MD POINT OF CARE TEST ORDERABLE S Performing Organization Address City/State/ZIP Code Phon e Number [address] POCT Glucose (07/23/2018 7:40 AM EST) P athologist Signature POC Glucose 165 65 - 199 [facility] mg/dL [facility] Comment: Supplemental ranges: <140 mg/dL before meals <180 mg/dL all other times of the day Specimen Anatomical Collection Method Collection Time Receive d Time (Source) Location / / Volume Laterality Blood specimen 07/23/2018 7:40 AM 019 7:40 (specimen) EST AM EST Efra Lockhart MD POINT OF CARE TEST ORDERABLE S Performing Organization Address City/State/ZIP Code Phon e Number [address] (ABNORMAL) Differential, Automated (07/23/2018 5:56 AM EST) Patholo gist Method Time Signature Neutrophils % 52.3 % [facility] Neutr Abs (ANC) 5.33 1.70 - [facility] 6.10 [facility] x10(3)/[facility] LABORATORY Lymphocytes % 37.1 % [facility] Lymphocytes Abs 3.8 (H) 0.9 - 3.2 [facility] x10(3)/[facility] LABORATORY Monocytes % 7.0 % [facility] Monocyte Abs 0.7 0.3 - 0.9 [facility] x10(3)/[facility] LABORATORY Eosinophils % 2.9 % [facility] Eosinophils Abs 0.3 0.0 - 0.4 [facility] x10(3)/[facility] LABORATORY Basophils % 0.3 % [facility] Basophils Abs 0.0 0.0 - 0.1 [facility] x10(3)/[facility] LABORATORY Immature Gran % 0.40 % [facility] Comment: Immature granulocytes(IG's)percentage an d absolute count will include metamyelocytes, myelocytes, and promyelo cytes. Blood smears from CBCs yielding IG's will be scanned manually for concor dance. If this scan disagrees with the automated IG or if promyelocytes are not ed, a manual differential will be performed. Irina Gran Abs 0.04 0.00 - 0.04 x10(3)/[facility] MAR [facility] Specimen Anatomical Collection Method Collection Time Receive d Time (Source) Location / / Volume Laterality Blood specimen 07/23/2018 5:56 AM 019 6:26 (specimen) EST AM EST Resulting Agency Comment Spec In Lab Ted Rajan MD HEMATOLOGY ORDERABLES Performing Organization Address City/State/[place] [address] (ABNORMAL) Hemogram (07/23/2018 5:56 AM EST) Analysis Performed At Patho logist Time Signature WBC 10.2 (H) 4.0 - 9.5 [facility] x10(3)/[facility] LABORATORY RBC 3.76 (L) 4.00 - [facility] 5.21 [facility] x10(6)/[facility] LABORATORY Hemoglobin 11.7 11.7 - [facility] 15.[facility] gm/dL [facility] Hematocrit 36.5 35.7 - [facility] 45.8 % [facility] MCV 97.1 (H) 82.6 - [facility] 94.4 [facility] LABORATORY MCH 31.1 27.1 - [facility] 32.0 pg [facility] MCHC 32.1 31.7 - [facility] 35.0 gm/dL [facility] Platelets 218 145 - 357 [facility] x10(3)/[facility] LABORATORY RDWSD 45.9 37.0 - [facility] 46.0 [facility] LABORATORY RDWCV 12.9 11.5 - [facility] 14.1 % [facility] MPV 10.1 7.6 - 12.9 [facility] LABORATORY nRBC % Auto 0.0 % [facility] nRBC Abs Auto 0.000 0.000 - [facility] 0.000 [facility] x10(3)/[facility] LABORATORY Specimen Anatomical Collection Method Collection Time Receive d Time (Source) Location / / Volume Laterality Blood specimen 07/23/2018 5:56 AM 019 6:26 (specimen) EST AM EST Resulting Agency Comment Spec In Lab Ted Rajan MD HEMATOLOGY ORDERABLES Performing Organization Address City/State/[place] [address] (ABNORMAL) Basic Metabolic Panel (non-fasting) (07/23/2018 5:56 AM EST) P athologist Signature Glucose Lvl 142 65 - 199 [facility] mg/dL [facility] Comment: Diabetes: >=200 mg/dL plus symp toms BUN 8 8 - 18 mg/dL [facility] Creatinine 0.65 (L) 0.70 - 1.20 mg/dL [facility] Sodium 139 135 - 145 mmol/L [facility] Potassium 4.5 3.5 - 5.0 mmol/L [facility] Comment: Please note: ??Patients with WBC >100,00 0 may have falsely elevated Potassium levels. ??For accurate Potassium quantif ication in these patients send serum separator tube (gold top) for subsequent determinations. ??Contact the Clinical Chemistry Laboratory if there are any qu estions. Chloride 100 98 - 107 mmol/L [facility] CO2 24 22 - 31 mmol/L [facility] Anion Gap 15 5 - 15 mmol/L [facility] Calcium 10.2 8.5 - 10.5 mg/dL [facility] Estimated GFR 98 >=60 mL/min/1.73 m?? [facility] Comment: The eGFR was calculated using the CKD-EP I equation. As with all creatinine based estimates of kidney function, eGFR values calculated with the CKD-EPI equation are not accurate in patients wi th acute kidney failure, extremes of body mass or the acutely ill. http://CommunityForce/[facility]nkf eGFR 113 >=60 mL/min/1.73 m?? [facility] Comment: The eGFR was calculated using the CKD-EP I equation. As with all creatinine based estimates of kidney function, eGFR values calculated with the CKD-EPI equation are not accurate in patients wi th acute kidney failure, extremes of body mass or the acutely ill. http://[employer]Force/DHnkf Specimen Anatomical Collection Method Collection Time Receive d Time (Source) Location / / Volume Laterality Blood specimen 07/23/2018 5:56 AM 019 6:26 (specimen) EST AM EST Resulting Agency Comment Spec In Lab Chrissy Cardoso MD CHEMISTRY ORDERABLES Performing Organization Address City/[facility]/ZIP Code Phon e Number [address] POCT Glucose (07/23/2018 3:57 AM EST) athologist Signature POC Glucose 129 65 - 199 [facility] mg/dL [facility] Comment: Supplemental ranges: <140 mg/dL before meals <180 mg/dL all other times of the day Specimen Anatomical Collection Method Collection Time Receive d Time (Source) Location / / Volume Laterality Blood specimen 07/23/2018 3:57 AM 019 3:57 (specimen) EST AM EST Efra Lockhart MD POINT OF CARE TEST ORDERABLE S Performing Organization Address City/State/ZIP Code Phon e Number [address] POCT Glucose (07/23/2018 12:28 AM EST) athologist Signature POC Glucose 122 65 - 199 [facility] mg/dL [facility] Comment: Supplemental ranges: <140 mg/dL before meals <180 mg/dL all other times of the day Specimen Anatomical Collection Method Collection Time Receive d Time (Source) Location / / Volume Laterality Blood specimen 07/23/2018 12:28 9 (specimen) AM EST 12:28 AM EST Efra Lockhart MD POINT OF CARE TEST ORDERABLE S Performing Organization Address City/State/ZIP Code Phon e Number [address] POCT Glucose (07/22/2018 10:34 PM EST) P athologist Signature POC Glucose 150 65 - 199 [facility] mg/dL [facility] Comment: Supplemental ranges: <140 mg/dL before meals <180 mg/dL all other times of the day Specimen Anatomical Collection Method Collection Time Receive d Time (Source) Location / / Volume Laterality Blood specimen 07/22/2018 10:34 8 (specimen) PM EST 10:34 PM EST Chrissy Cardoso MD POINT OF CARE TEST ORDERABLE S Performing Organization Address City/State/[place] [address] XR Abdomen Flat & Upright (07/22/2018 10:24 PM EST) Anatomical Region Laterality Modality Abdomen N/A Digital Radiography Specimen (Source) Anatomical Location Collection Method / Collectio n Time Received Time / Laterality Volume Impressions 07/22/2018 11:33 PM EST 1. ??Nonobstructive bowel gas pattern. 2. ??Interval passage of oral contrast f rom the small bowel into the large bowel and rectum. Preliminary report signed by: Srinivas Duran at 07/22/2018 11:11 PM I have personally reviewed the image(s) and the residents interpretation and agree with the findings, JAREK BURNS at 07/22/2018 11:33 PM Narrative 07/22/2018 11:33 PM EST EXAMINATION: XR ABDOMEN FLAT AND UPRIGHT CLINICAL HISTORY: clinically persistent PSBO. assess passage of contrast. Additional history includes ventral abdo emilee hernia. TECHNIQUE: Standing and supine radiographs of the a bdomen COMPARISON: CT of the abdomen and pelvis 07/22/2018 FINDINGS: The visualized lung bases are clear. Surgical clips project over the gallblad elise fossa. There is a right-sided nephroureteral st ent with proximal pigtail projecting over the right renal contour and distal pigtail projecting of the bladder. The known proximal bilateral ureteral calcul i are better characterized on the prior CT. There are no air-filled dilated loops of bowel to suggest obstruction. No free air. There is oral contrast opacification of the colon and rectum, which has progressed from the prior CT where contr ast was not seen within the colon. Severe bilateral hip osteoarthropathy ch aracterized by joint space narrowing, subchondral sclerosis and marginal osteo phytes. Procedure Note Jarek Burns MD - 07/22/2018Formattin g of this note might be different from the original. EXAMINATION: XR ABDOMEN FLAT AND UPRIGHT CLINICAL HISTORY: clinically persistent PSBO. assess passage of contrast. Additional history includes ventral abdo emilee hernia. TECHNIQUE: Standing and supine radiographs of the a bdomen COMPARISON: CT of the abdomen and pelvis 07/22/2018 FINDINGS: The visualized lung bases are clear. Surgical clips project over the gallblad elise fossa. There is a right-sided nephroureteral st ent with proximal pigtail projecting over the right renal contour and distal pigtail projecting of the bladder. The known proximal bilateral ureteral calcul i are better characterized on the prior CT. There are no air-filled dilated loops of bowel to suggest obstruction. No free air. There is oral contrast opacification of the colon and rectum, which has progressed from the prior CT where contr ast was not seen within the colon. Severe bilateral hip osteoarthropathy ch aracterized by joint space narrowing, subchondral sclerosis and marginal osteo phytes. IMPRESSION 1. Nonobstructive bowel gas pattern. 2. Interval passage of oral contrast fro m the small bowel into the large bowel and rectum. Preliminary report signed by: Srinivas Duran at 07/22/2018 11:11 PM I have personally reviewed the image(s) and the residents interpretation and agree with the findings, JAREK BURNS at 07/22/2018 11:33 PM Chrissy Cardoso MD IMG DX ORDERABLES Request For 2nd Read CT Abdomen & [...] Lockhart MD IMG OUTSIDE INTERPRETATION O RDERABLES (ABNORMAL) BLOOD GAS 2 VENOUS (07/22/2018 6:05 PM EST) P athologist Signature pH Claudy 7.36 7.32 - [facility] 7.42 [facility] pCO2 Claudy 48 41 - 51 [facility] LABORATORY pO2 Claudy 56 (H) 25 - 40 [facility] LABORATORY HCO3 Claudy 26.4 mmol/L [facility] BE Claudy 0.9 mmol/L [facility] Hgb Blood Gas 13.5 11.7 - [facility] 15.5 gm/dL [facility] O2HB Claudy 88.0 % [facility] COHB Claudy 0.7 % [facility] Comment: Nonsmokers: 0.5-1.5% COHB Smokers: Variable, but usually less than 10% Toxic: 20-30% COHB Lethal: Greater than 60% COHB METHB Claudy 0.4 <=1.5 % [facility] Na Whole Blood 140 135 - 145 mmol/L [facility] K Whole Blood 4.4 3.5 - 5.0 mmol/L [facility] Comment: Please note: Patients with WBC >100,000 may have falsely elevated Potassium levels. Contact the Clinical Chemistry L aboratory if there are any questions. ICa Whole Blood 1.33 1.15 - 1.33 mmol/L [facility] Comment: Note: ??Total bilirubin higher than 20 m g/dL may lead to falsely low ionized calcium. CL Whole Blood 104 98 - 107 mmol/L [facility] Gluc Whole Bld 145 65 - 199 mg/dL [facility] Comment: Diabetes: >=200 mg/dL plus symp toms Lactate WB 1.9 0.5 - 2.2 mmol/L [facility] BGas Source Venous [facility] Specimen Anatomical Collection Method Collection Time Receive d Time (Source) Location / / Volume Laterality Blood specimen 07/22/2018 6:05 PM 018 6:05 (specimen) EST PM EST Chrissy Cardoso MD CHEMISTRY ORDERABLES Performing Organization Address City/State/[place] [address] (ABNORMAL) Differential, Automated (07/22/2018 6:03 PM EST) [facility] gist Method Time Signature Neutrophils % 61.1 % [facility] Neutr Abs (ANC) 7.07 (H) 1.70 - [facility] 6.10 [facility] x10(3)/[facility] LABORATORY Lymphocytes % 30.1 % [facility] Lymphocytes Abs 3.5 (H) 0.9 - 3.2 [facility] x10(3)/[facility] LABORATORY Monocytes % 5.7 % [facility] Monocyte Abs 0.7 0.3 - 0.9 [facility] x10(3)/[facility] LABORATORY Eosinophils % 2.4 % [facility] Eosinophils Abs 0.3 0.0 - 0.4 [facility] x10(3)/[facility] LABORATORY Basophils % 0.2 % [facility] Basophils Abs 0.0 0.0 - 0.1 [facility] x10(3)/[facility] LABORATORY Immature Gran % 0.50 % [facility] Comment: Immature granulocytes(IG's)percentage an d absolute count will include metamyelocytes, myelocytes, and promyelo cytes. Blood smears from CBCs yielding IG's will be scanned manually for concor dance. If this scan disagrees with the automated IG or if promyelocytes are not ed, a manual differential will be performed. Irina Gran Abs 0.06 (H) 0.00 - 0.04 x10(3)/[facility] LABORATORY Specimen Anatomical Collection Method Collection Time Receive d Time (Source) Location / / Volume Laterality Blood specimen 07/22/2018 6:03 PM 018 6:11 (specimen) EST PM EST Resulting Agency Comment Spec In Lab Jose Maria Richardson MD HEMATOLOGY ORDERABLES Performing Organization Address City/State/[place] [address] (ABNORMAL) Hemogram (07/22/2018 6:03 PM EST) Analysis Performed At Patho logist Time Signature WBC 11.6 (H) 4.0 - 9.5 [facility] x10(3)/[facility] LABORATORY RBC 4.05 4.00 - [facility] 5.21 [facility] x10(6)/[facility] LABORATORY Hemoglobin 12.7 11.7 - [facility] 15.5 gm/dL [facility] Hematocrit 39.0 35.7 - [facility] 45.8 % [facility] MCV 96.3 (H) 82.6 - [facility] 94.4 fL [facility] MCH 31.4 27.1 - [facility] 32.0 pg [facility] MCHC 32.6 31.7 - [facility] 35.0 gm/dL [facility] Platelets 206 145 - 357 [facility] x10(3)/[facility] LABORATORY RDWSD 45.4 37.0 - [facility] 46.0 [facility] LABORATORY RDWCV 12.8 11.5 - [facility] 14.1 % [facility] MPV 10.8 7.6 - 12.9 [facility] LABORATORY nRBC % Auto 0.0 % [facility] nRBC Abs Auto 0.000 0.000 - [facility] 0.000 [facility] x10(3)/[facility] LABORATORY Specimen Anatomical Collection Method Collection Time Receive d Time (Source) Location / / Volume Laterality Blood specimen 07/22/2018 6:03 PM 018 6:11 (specimen) EST PM EST Resulting Agency Comment Spec In Lab Jose Maria Richardson MD HEMATOLOGY ORDERABLES Performing Organization Address City/State/[place] [address] Prothrombin Time (07/22/2018 6:03 PM EST) P athologist Signature PT 12.0 9.4 - 12.5 [facility] LABORATORY INR 1.0 [facility] [...] Location / / Volume Laterality Blood specimen 07/22/2018 6:03 PM 018 6:11 (specimen) EST PM EST Resulting Agency Comment Spec In Lab Chrissy Cardoso MD HEMATOLOGY ORDERABLES Performing Organization Address City/State/[place] [address] Lipase (07/22/2018 6:03 PM EST) athologist Signature Lipase 42 0 - 60 [facility] unit/L [facility] Specimen Anatomical Collection Method Collection Time Receive d Time (Source) Location / / Volume Laterality Blood specimen 07/22/2018 6:03 PM 018 6:11 (specimen) EST PM EST Resulting Agency Comment Spec In Lab Chrissy Cardoso MD CHEMISTRY ORDERABLES Performing Organization Address City/State/[place] [address] (ABNORMAL) Basic Metabolic Panel (non-fasting) (07/22/2018 6:03 PM EST) athologist Signature Glucose Lvl 138 65 - 199 [facility] mg/dL [facility] Comment: Diabetes: >=200 mg/dL plus symp toms BUN 7 (L) 8 - 18 mg/dL [facility] Creatinine 0.64 (L) 0.70 - 1.20 mg/dL [facility] Sodium 139 135 - 145 mmol/L [facility] Potassium 4.4 3.5 - 5.0 mmol/L [facility] Comment: Please note: ??Patients with WBC >100,00 0 may have falsely elevated Potassium levels. ??For accurate Potassium quantif ication in these patients send serum separator tube (gold top) for subsequent determinations. ??Contact the Clinical Chemistry Laboratory if there are any qu estions. Chloride 101 98 - 107 mmol/L [facility] CO2 24 22 - 31 mmol/L [facility] Anion Gap 14 5 - 15 mmol/L [facility] Calcium 10.3 8.5 - 10.5 mg/dL [facility] Estimated GFR 98 >=60 mL/min/1.73 m?? [facility] Comment: The eGFR was calculated using the CKD-EP I equation. As with all creatinine based estimates of kidney function, eGFR values calculated with the CKD-EPI equation are not accurate in patients wi th acute kidney failure, extremes of body mass or the acutely ill. http://CommunityForce/[facility] eGFR 114 >=60 mL/min/1.73 m?? [facility] Comment: The eGFR was calculated using the CKD-EP I equation. As with all creatinine based estimates of kidney function, eGFR values calculated with the CKD-EPI equation are not accurate in patients wi th acute kidney failure, extremes of body mass or the acutely ill. http://CommunityForce/[facility] Specimen Anatomical Collection Method Collection Time Receive d Time (Source) Location / / Volume Laterality Blood specimen 07/22/2018 6:03 PM 018 6:11 (specimen) EST PM EST Resulting Agency Comment Spec In Lab Chrissy Cardoso MD CHEMISTRY ORDERABLES Performing Organization Address City/[facility] [place] [address] (ABNORMAL) Hepatic Function Panel (07/22/2018 6:03 PM EST) athologist Signature Total Protein 7.4 6.1 - 8.0 [facility] gm/dL [facility] Albumin 3.9 3.2 - 5.2 [facility] gm/dL [facility] AST 31 (H) 0 - 30 [facility] unit/L [facility] ALT 20 0 - 30 [facility] unit/L [facility] Alk Phos 77 40 - 104 [facility] unit/L [facility] Total 0.8 0.2 - 1.3 [facility] Bilirubin mg/dL [facility] Bili, Direct 0.2 0.0 - 0.3 [facility] mg/dL [facility] Specimen Anatomical Collection Method Collection Time Receive d Time (Source) Location / / Volume Laterality Blood specimen 07/22/2018 6:03 PM 018 6:11 (specimen) EST PM EST Resulting Agency Comment Spec In Lab Chrissy Cradoso MD CHEMISTRY ORDERABLES Performing Organization Address City/[facility] [place] [address] documented in this encounter Visit Diagnoses Diagnosis Ventral hernia, recurrent Incisional hernia without mention of obs truction or gangrene Ventral hernia Ventral hernia, unspecified, without men tion of obstruction or gangrene documented in this encounter Admitting Diagnoses Diagnosis Ventral hernia Ventral hernia, unspecified, without men tion of obstruction or gangrene documented in this encounter Administered Medications Inactive Administered Medications - up to 3 most recent administrations Medication Order MAR Action Action Date Dose Rate Site acetaminophen (TYLENOL) tablet 650 Given 07/22/2018 8:09 PM EST 650 mg mg 650 mg, Oral, ONCE, 1 dose, On Sun07/22/18 at 2005, Maximum dose of acetaminophen is 4000 mg from all sources in 24 hours., STAT acetaminophen (TYLENOL) tablet 650 mg Given 07/24/2018 12:18 PM EST 650 mg 650 mg, Oral, EVERY 6 HOURS SCHEDULED, First dose on Sun07/23/18 at 1245, Until Discontinued, Maximum dose of acetaminophen is 4000 mg from all sources in 24 hours., Routine Given 07/24/2018 6:26 AM EST 650 mg Given 07/23/2018 11:58 PM EST 650 mg albuterol 90 mcg/actuation inhaler 2 puf f Given 07/23/2018 9:00 PM EST 2 puffs 2 puff, Inhalation, 4 TIMES DAILY, First dose on Sun07/23/18 at 0900, Until Discontinued Given 07/23/2018 5:00 PM EST 2 puffs Given 07/23/2018 1:00 PM EST 2 puffs bisacodyl (DULCOLAX) suppository 10 mg 10 mg, Rectal, DAILY, First dose on Sun07/24/18 at 0915, Until Discontinued, Routine cefPODOXime (VANTIN) tablet 200 mg Given 07/22/2018 10:49 PM EST 200 mg 200 mg, Oral, 2 TIMES DAILY, First dose on Sun07/22/18 at 2155, Until Discontinued, STAT cefTRIAXone (ROCEPHIN) 2 g vial attach New Bag 07/23/2018 9:30 PM EST 2 g 100 mL/hr to sodium chloride 0.9% 50 mL Mini-Bag Plus 2 g, Intravenous, EVERY 24 HOURS, First dose on Sun07/22/18 at 2137, Until Discontinued, Administer over 30 Minutes, Indication for (Active or Suspected): Urinary Tract/Pyelonephritis New Bag 07/22/2018 10:29 PM EST 2 g 100 mL/hr dextrose 50% IV syringe 25-50 mL 25-50 mL (12.5-25 g), Intravenous, EVERY 1 HOUR PRN, Starting on Sun07/22/18 at 2139, Until Sun07/24/18 at 1452, Low bloo d sugar, For BG 50-70: 120 mL Juice or Regular (not diet) soda OR 12.5 gram (25 mL) Dextrose 50% IV OR, if no IV access, 1 mg Glucagon IM. Recheck BG in 30 minut es. May repeat juice, dextrose or glucagon once per episode For BG less than 50: 240 mL Juice or Regular (not diet) soda OR 25 grams (50 mL) Dextrose 50% IV OR, if no IV access, 1 mg Glucagon IM. Recheck BG in 30 minutes. May repeat juice, dext chele, or glucagon once per episode. To avoid extravasation, push Dextrose 50% SLOWLY (3 mL ov er 1 minute) in a patent, running IV, preferably a central line. For persisten t hypoglycemia, consider longer-acting treatment for the duration of the active insulin., Routine enoxaparin (LOVENOX) injection 40 mg Given 07/23/2018 9:30 PM EST 40 mg 40 mg, Subcutaneous, NIGHTLY, First dose on Sun07/23/18 at 0000, Until Discontinued, Routine Given 07/23/2018 12:26 AM EST 40 mg gabapentin (NEURONTIN) capsule 600 mg Given 07/22/2018 10:29 PM EST 600 mg 600 mg, Oral, ONCE, 1 dose, On Sun07/22/18 at 2155, Routine glucagon (human recombinant) injection S olR 1 mg 1 mg, Intramuscular, EVERY 1 HOUR PRN, S tarting on Sun07/22/18 at 2139, Until Sun07/24/18 at 1452, Low blood sugar, For B G 50-70: 120 mL Juice or Regular (not diet) soda OR 12.5 gram (25 mL) Dextrose 50% I V OR, if no IV access, 1 mg Glucagon IM. Recheck BG in 30 minutes. May repeat j uice, dextrose or glucagon once per episode For BG less than 50: 240 mL Juice or R egular (not diet) soda OR 25 grams (50 mL) Dextrose 50% IV OR, if no IV access, 1 m g Glucagon IM. Recheck BG in 30 minutes. May repeat juice, dextrose, or glucagon once per episode. To avoid extravasation, push Dextrose 50% SLOWLY (3 mL over 1 mi nute) in a patent, running IV, preferably a central line. For persistent hypoglyce anabelle, consider longer-acting treatment for the duration of the active insulin., Routine glucose (GLUTOSE) 40% oral gel 15 g, Oral, PER INSULIN PROTOCOL, Starting on 06/24 at 2139, Until Sun07/24/18 at 1452, Low blood sugar, For BG 50-70 mg/dL : 120 mL Juice or Regular (not diet) soda OR 15 gram glucose 40% o ral gel OR 12.5 gram (15 mL) Dextrose 50% IV OR, if no IV access, 1 mg Glucagon IM . Recheck BG in 30 minutes. May repeat juice, gel, dextrose or glucagon once pe r episode For BG less than 50 mg/dL: 240 ml Juice or Regualr (not diet) soda OR 3 0 gram glucose 40% oral gel OR 25 gram (50 mL) Dextrose 50% IV OR, if no IV access, 1 mg Glucagon IM Recheck BG in 30 minutes. May repeat juice, gel, dextrose or glucagon once per episode. To avoid extravasation, push Dextrose 50% SLOWLY (3 mL over 1 minute) in a patent, running IV, preferably a central line For persistent hypogl ycemia, consider longer-acting treatment for the duration of the active insulin 1 tube contains 15 grams of glucose (net weight of tube = 37.5 grams., Ro utine hydrALAZINE (APRESOLINE) injection 10 mg 10 mg, Intravenous, EVERY 2 HOURS PRN, S tarting on Sun07/22/18 at 2138, Until Sun07/24/18 at 1452, High Blood Pressure, SBP>160. Hold for HR>100, Routine HYDROcodone-acetaminophen (NORCO) 5-325 mg Given 07/23 3:06 AM EST 1 tablet per tablet 1 tablet 1 tablet, Oral, ONCE PRN, 1 dose, Starting on Sun07/23/18 at 0300, Until Sun07/23/18 at 0306, Pain, Maximum dose of acetaminophen is 4000 mg from all sources in 24 hours. , Routine HYDROmorphone (DILAUDID) injection 0.2 m g Given 07/23/2018 12:24 AM EST 0.2 mg 0.2 mg, Intravenous, EVERY 4 HOURS PRN, Starting on Sun07/22/18 at 2334, Until Sun07/23/18 at 0307, Pain, for SEVERE pain (7-10), May repeat once in 30 minutes if pain not relieved., Routine insulin lispro (HumaLOG) VIAL injection 1-4 Given 08/2018 8:42 AM EST 2 Units Units 1-4 Units, Subcutaneous, EVERY 4 HOURS SCHEDULED, First dose on Sun07/22/18 at 2141, Until Discontinued, CORRECTION BOLUS Sensitive to insulin [...] specifically told to do so., Routine Given 07/23/2018 1:16 PM EST 2 Units Given 07/23/2018 9:18 AM EST 2 Units labetalol (NORMODYNE,TRANDATE) injection 10 mg 10 mg, Intravenous, EVERY 2 HOURS PRN, S tarting on Sun07/22/18 at 2137, Until Sun07/24/18 at 1452, High Blood Pressure, for SBP >160 hold for HR <60, Routine lactated Ringers infusion New Bag 07/23/2018 1:42 AM EST 125 mL/hr 125 mL/hr 125 mL/hr, Intravenous, CONTINUOUS, Starting on Sun07/22/18 at 2137, Until Sun07/23/18 at 0756 ondansetron (ZOFRAN) injection 4-8 mg 4-8 mg, Intravenous, EVERY 8 HOURS PRN, Starting on Sun07/22/18 at 2334, Until Sun07/24/18 at 1452, Nausea, Start with 4mg a nd if ineffective in 30 minutes, give an additional 4mg If multiple antiemetic s are ordered, give ondansetron first. ondansetron (ZOFRAN) tablet 4-8 mg 4-8 mg, Oral, EVERY 8 HOURS PRN, Startin g on Sun07/22/18 at 2334, Until Sun07/24/18 at 1452, Nausea, Vomiting, If multiple antiemetics are ordered, use ondansetron first. PO Preferred. If patient unable to take PO, may give IV if ordered. Start with 4mg and if ineffective in 45 minutes, give an add itional 4mg. If unable to take PO, may give IV., Routine oxyCODONE (ROXICODONE) immediate release tablet Given 07/22/2018 8:09 PM EST 5 mg 5 mg 5 mg, Oral, ONCE, 1 dose, On Sun07/22/18 at 2005, STAT oxyCODONE (ROXICODONE) immediate release tablet Given 07/24/2018 8:42 AM EST 5 mg 5 mg 5 mg, Oral, EVERY 4 HOURS PRN, Starting on Sun07/23/18 at 1222, Until Sun07/24/18 at 1452, Pain, Routine Given 07/24/2018 1:57 AM EST 5 mg Given 07/23/2018 9:30 PM EST 5 mg pantoprazole (PROTONIX) injection 40 mg 40 mg, Intravenous, DAILY, First dose on Sun07/23/18 at 0900, Until Discontinued, Reconstitute with 10 mL of normal saline to a concentration of 4 mg/mL and infuse slowly over 2 minutes. , Routine pantoprazole (PROTONIX) tablet 40 mg Given 07/24/2018 8:42 AM EST 40 mg 40 mg, Oral, DAILY, First dose on Sun07/23/18 at 0900, Until Discontinued, DO NOT CRUSH OR OPEN If unable to take PO, may give IV, Routine Given 07/23/2018 9:18 AM EST 40 mg polyethylene glycol (MIRALAX) packet 17 g 17 g, Oral, DAILY, First dose on 07/24 at 0900, Until Discontinued, Routine prochlorperazine (COMPAZINE) injection 1 0 mg 10 mg, Intravenous, EVERY 6 HOURS PRN, S tarting on Sun07/22/18 at 2334, Until Sun07/24/18 at 1452, Nausea, Nausea/Vomiting, If multiple antiemetics are ordered, use ondansetron first. If ondansetron ineffective use proc hlorperazine. , Routine prochlorperazine (COMPAZINE) tablet 10 m g 10 mg, Oral, EVERY 6 HOURS PRN, Starting on Sun07/22/18 at 2334, Until Sun07/24/18 at 1452, Nausea, Nausea/Vomiting, If multiple antie metics are ordered, use ondansetron first. If ondansetron ineffective use proc hlorperazine. PO Preferred. If patient unable to take PO, may give IV i f ordered., Routine senna-docusate (PERICOLACE) 8.6-50 mg pe r tablet 1 tablet 1 tablet, Oral, DAILY, First dose on Sun07/24/18 at 090 0, Until Discontinued, Routine sodium chloride 0.9 % flush 5 mL Given 07/24/2018 9:00 AM EST 5 mLs 5 mL, Intravenous, 2 TIMES DAILY, First dose on Sun07/23/18 at 0000, Until Discontinued, Recovery (Recovery-[facility]ospital Unit), Routine Given 07/23/2018 9:00 PM EST 5 mLs Given 07/23/2018 9:00 AM EST 5 mLs tiotropium (SPIRIVA) inhalation capsule with Given 07/2018 9:19 AM EST 18 mcg device 18 mcg 18 mcg, Inhalation, DAILY, First dose on Sun07/23/18 at 0900, Until Discontinued documented in this encounter Active and Recently Administered Medications Times are shown in EST. Scheduled Medication Order 07/22/2018 07/23/2018 07/24/2018 acetaminophen (TYLENOL) tablet 650 mg (COMPLETED) 2008 (Given - Provider: Saira Stacy RN) 650 mg, Oral, ONCE, 1 dose, 07/22/18 at 2005, Maximum dose of acetaminophen is 4000 mg from all sources in 24 hours., STAT acetaminophen (TYLENOL) tablet 650 mg 13 16 (Given - Provider: Roro Casiano RN)1999 (Not Given - Provider: Abelardo Catalan RN - Reason: See comment - Comment: adjust times)6786 (Given - Provider: Rah Villarreal RN) 0626 (Given - Provider: Abelardo Catalan RN)1218 (Given - Provider: Raffi Mahoney RN) 650 mg, Oral, EVERY 6 HOURS SCHEDULED, F irst dose on Sun07/23/18 at 1245, Until Discontinued, Maximum dose of acetaminophen is 4000 mg from all sources in 24 hours., Routine albuterol 90 mcg/actuation inhaler 2 puff 0900 (Given - Provider: Roro Casiano, RN)1300 (Given - Provider: Roro Casiano, RN)1700 (Given - Provider: Roro Casiano, BRYAN)2100 (Given - Provider: Rah Villarreal RN) 0900 (Not Given - Provider: Raffi Mahoney RN - Reason: Patient/family refused)1300 (Not Given - Provider: Raffi Mahoney RN - Reason: Patient/family refused) 2 puff, Inhalation, 4 TIMES DAILY, First dose on Sun07/23/18 at 0900, Until Discontinued bisacodyl (DULCOLAX) suppository 10 mg 0915 (Not Given - Provider: Raffi Mahoney RN - Reason: Patient/family refused - Comment: Pt had large bowel movement) 10 mg, Rectal, DAILY, First dose on Sun07/24/18 at 0915, Until Discontinued, Routine cefPODOXime (VANTIN) tablet 200 mg (CANCELED) 2248 (Gi claudy - Provider: Alon Acuna RN) 200 mg, Oral, 2 TIMES DAILY, First dose on Sun07/22/18 at 2155, Until Discontinued, STAT cefTRIAXone (ROCEPHIN) 2 g vial attach t o sodium chloride 0.9% 50 mL Mini-Bag Plus 2228 (New Bag - Provider: Saira cowan RN)2258 (Stopped - Provider: Rah Villarreal, BRYAN) 2129 (New Bag - Provider: Rah sebastian RN)2199 (Stopped - Provider: Abelardo Catalan RN) 2 g, Intravenous, EVERY 24 HOURS, First dose on Sun07/22/18 at 2136, Until Discontinued, Administer over 30 Minutes, Indication for (Active or Suspected): Urinary Tract/Pyelonephritis enoxaparin (LOVENOX) injection 40 mg 002 6 (Given - Provider: Rah Villarreal RN)2129 (Given - Provider: Rah Villarreal RN) 40 mg, Subcutaneous, NIGHTLY, First dose on Sun07/23/18 at 0000, Until Discontinued, Routine gabapentin (NEURONTIN) capsule 600 mg (COMPLETED) 2228 (Given - Provider: Saira Stacy RN) 600 mg, Oral, ONCE, 1 dose, Sun07/22/18 at 2155, Routine insulin lispro (HumaLOG) VIAL injection 1-4 Units(Link ed Group 1) 2236 (Given - Provider: Saira Stacy RN) 0000 (Not Given - Provider: Rah Loja ams, RN - Reason: Order parameters not met)0400 (Not Given - Provider: Rah Villarreal RN - Reason: Order parameters not met)0918 (Given - Provider: Roro Casiano RN) 0000 (Not Given - Provider: Rah Loja ams, RN - Reason: Order parameters not met)0400 (Not Given - Provider: Rah Villarreal RN - Reason: Order parameters not met)0842 (Given - Provider: Raffi Mahoney RN) 1-4 Units, Subcutaneous, EVERY 4 HOURS S CHEDULED, First dose on Sun07/22/18 at 2141, Until Discontinued, CORRECTION BOLUS Sensitive to insulin lean patient or total daily dose of all insulin needed 1316 (Given - Provider: Roro Casiano RN)1600 (Not Given - Provider: Roro Casiano RN - Reason: Order parameters not met)2000 (Not Given - Provider: Abelardo Catalan RN - Reason: Order parameters not met) 1200 (Not Given - Provider: Raffi schroeder RN - Reason: Contraindicated - Comment: pt BG 137, no insulin needed) to achieve glycemic control less than 3 0 units BG 140 - 160 Give 1 unit BG 161 - 200 Give 2 units BG 201 - 240 Give 3 units BG greater than 240, give 4 units and recheck BG in 2 hours. If less than 240 after two hours, give no insulin and re sume prior schedule. If BG remains greater than 240, repeat 4 units (no more than three times) & call for new basal insulin orders. DO NOT hold if NPO, unless specifically told to do so., Routine oxyCODONE (ROXICODONE) immediate release tablet 5 mg ( COMPLETED) 2008 (Given - Provider: Saira Stacy RN) 5 mg, Oral, ONCE, 1 dose, Sun07/22/18 at 2005, STAT pantoprazole (PROTONIX) injection 40 mg(Linked Group 2) 917 (See Alternative - Provider: Roro Casiano RN) 0842 (See Alternative - Provider: Raffi Mahoney RN) 40 mg, Intravenous, DAILY, First dose on Sun07/23/18 at 0900, Until Discontinued, Reconstitute with 10 mL of normal saline to a concentration of 4 mg/mL and infuse slowly over 2 minutes. , Routine pantoprazole (PROTONIX) tablet 40 mg(Linked Group 2) 917 (Given - Provider: oRro Casiano RN) 0842 (Given - Provider: Varun Miller) 40 mg, Oral, DAILY, First dose on 08/10 at 0900, Until Discontinued, DO NOT CRUSH OR OPEN If unable to take PO, may give IV, Routine polyethylene glycol (MIRALAX) packet 17 g 899 (Not Given - Provider: Raffi Mahoney RN - Reason: Patient/family refused - Comment: Pt had large bowel movement) 17 g, Oral, DAILY, First dose on 07/24 at 0900, Until Discontinued, Routine senna-docusate (PERICOLACE) 8.6-50 mg per tablet 1 tablet 899 (Not Given - Provider: Raffi Mahoney RN - Reason: Patient/family refused - Comment: Pt had large bowel movement) 1 tablet, Oral, DAILY, First dose on Sun07/24/18 at 0900, Until Discontinued, Routine sodium chloride 0.9 % flush 5 mL 0026 (G iven - Provider: Rah Villarreal RN)0900 (Given - Provider: Roro Casiano RN)2100 (Given - Provider: Abelardo Catalan RN) 0900 (Given - Provider: Varun Miller) 5 mL, Intravenous, 2 TIMES DAILY, First dose on Sun07/23/18 at 0000, Until Discontinued, Recovery (Recovery-Hospital Unit), Routine tiotropium (SPIRIVA) inhalation capsule with device 18 mcg 918 (Given - Provider: Roro Casiano RN) 0900 (Not Given - Provider: Raffi schroeder RN - Reason: Patient/family refused) 18 mcg, Inhalation, DAILY, First dose on Sun07/23/18 at 0900, Until Discontinued Continuous Medication Order 07/22/2018 07/23/2018 07/24/2018 lactated Ringers infusion (CANCELED) 2230 (Hold - Prov ider: Saira Stacy RN - Reason: See comment) 0142 (New Bag - Provider: Rah Villarreal RN) 125 mL/hr, at 125 mL/hr, Intravenous, CO NTINUOUS, Starting Sun07/22/18 at 2137, Until Sun07/23/18 at 0756 PRN Medication Order 07/22/2018 07/23/2018 07/24/2018 dextrose 50% IV syringe 25-50 mL(Linked Group 3) 25-50 mL (12.5-25 g), Intravenous, EVERY 1 HOUR PRN, Starting Sun07/22/18 at 2139, Until Sun07/24/18 at 1452, Low blood sugar, For BG 50-70: 120 mL Juice or Regular (not diet) soda OR 12.5 gram (25 mL ) Dextrose 50% IV OR, if no IV access, 1 mg Glucagon IM. Recheck BG in 30 minutes. May repeat juice, dextrose or glucagon once per episode For BG less than 50: 240 mL Juice or Regular (not diet) sod a OR 25 grams (50 mL) Dextrose 50% IV OR , if no IV access, 1 mg Glucagon IM. Recheck BG in 30 minutes. May repeat juice, dextrose, or glucagon once per episode. To avoid extravasation, push Dextrose 50% SLOWLY (3 mL over 1 minute) in a pa tent, running IV, preferably a central line. For persistent hypoglycemia, consider longer-acting treatment for the duration of the active insulin., Routine glucagon (human recombinant) injection SolR 1 mg(Linked Group 3) 1 mg, Intramuscular, EVERY 1 HOUR PRN, S tarting 07/22/18 at 2139, Until Sun07/24/18 at 1452, Low blood sugar, For BG 50-70: 120 mL Juice or Regular (not diet) soda OR 12.5 gram (25 mL) Dextrose 50% IV OR, if no IV access, 1 mg Glucagon I M. Recheck BG in 30 minutes. May repeat juice, dextrose or glucagon once per episode For BG less than 50: 240 mL Juice or Regular (not diet) soda OR 25 grams (50 mL) Dextrose 50% IV OR, if no IV acc ess, 1 mg Glucagon IM. Recheck BG in 30 minutes. May repeat juice, dextrose, or glucagon once per episode. To avoid extravasation, push Dextrose 50% SLOWLY (3 mL over 1 minute) in a patent, running IV, preferably a central line. For persistent hypoglycemia, consider longer-acting treatment for the duration of the active insulin., Routine glucose (GLUTOSE) 40% oral gel(Linked Group 3) 15 g, Oral, PER INSULIN PROTOCOL, Starti ng Sun07/22/18 at 2139, Until Sun07/24/18 at 1452, Low blood sugar, For BG 50-70 mg/dL: 120 mL Juice or Regular (not diet) soda OR 15 gram glucose 40% oral gel OR 12.5 gram (15 mL) Dextrose 50% IV OR , if no IV access, 1 mg Glucagon IM. Recheck BG in 30 minutes. May repeat juice, gel, dextrose or glucagon once per episode For BG less than 50 mg/dL: 240 ml Juice or Regualr (not diet) soda OR 30 g charlee glucose 40% oral gel OR 25 gram (50 mL) Dextrose 50% IV OR, if no IV access, 1 mg Glucagon IM Recheck BG in 30 minutes. May repeat juice, gel, dextrose or g lucagon once per episode. To avoid ext ravasation, push Dextrose 50% SLOWLY (3 mL over 1 minute) in a patent, running IV, preferably a central line For persistent hypoglycemia, consider longer-actin g treatment for the duration of the acti ve insulin 1 tube contains 15 grams of glucose (net weight of tube = 37.5 grams., Routine hydrALAZINE (APRESOLINE) injection 10 mg 10 mg, Intravenous, EVERY 2 HOURS PRN, S tarting 07/22/18 at 2138, Until Sun07/24/18 at 1452, High Blood Pressure, SBP>160. Hold for HR>100, Routine HYDROcodone-acetaminophen (NORCO) 5-325 mg per tablet 1 tabl et (COMPLETED) 0306 (Given - Provider: Rah Villarreal RN) 1 tablet, Oral, ONCE PRN, 1 dose, Starti ng Tue 07/23/18 at 0300, Until Discontinued, Pain, Maximum dose of acetaminophen is 4000 mg from all sources in 24 hours. , Routine HYDROmorphone (DILAUDID) injection 0.2 mg (CANCELED) 0024 (Given - Provider: Rah Villarreal RN) 0.2 mg, Intravenous, EVERY 4 HOURS PRN, Starting Sun07/22/18 at 2334, Until Sun07/23/18 at 0307, Pain, for SEVERE pain (7-10), May repeat once in 30 minutes if pain not relieved., Routine labetalol (NORMODYNE,TRANDATE) injection 10 mg 10 mg, Intravenous, EVERY 2 HOURS PRN, S tarting Sun07/22/18 at 2137, Until Sun07/24/18 at 1452, High Blood Pressure, for SBP >160 hold for HR <60, Routine lidocaine (XYLOCAINE) 10 mg/mL (1 %) injection 3 mg 3 mg (0.3 mL), Subcutaneous, ONCE PRN, 1 dose, Starting Sun07/22/18 at 2334, Until Sun07/24/18 at 1452, for discomfort with PIV insertion, Recovery (Recovery- Hospital Unit), Routine nalOXone (NARCAN) injection 0.2 mg 0.2 mg, Intravenous, EVERY 1 MIN PRN, St arting Sun07/22/18 at 2334, Until Sun07/24/18 at 1452, Opioid Reversal, If respiratory rate less than 6 OR the patient is unable to arouse OR SpO2 is declining, G kayla for respiratory rate of less than or equal to 6 and patient is heavily sedated or unarousable. May repeat every 60 seconds to increase respiratory rate. DO NOT exceed 2 mg total dose., Recovery ([facility]ospital Unit), Routine ondansetron (ZOFRAN) injection 4-8 mg(Linked Group 4) 4-8 mg, Intravenous, EVERY 8 HOURS PRN, Starting Sun07/22/18 at 2334, Until Sun07/24/18 at 1452, Nausea, Start with 4mg and if ineffective in 30 minutes, give an additional 4mg If multiple antiemetics are ordered, give ondansetron first. ondansetron (ZOFRAN) tablet 4-8 mg(Linked Group 4) 4-8 mg, Oral, EVERY 8 HOURS PRN, Startin g Sun07/22/18 at 2334, Until Sun07/24/18 at 1452, Nausea, Vomiting, If multiple antiemetics are ordered, use ondansetron first. PO Preferred. If patient unabl e to take PO, may give IV if ordered. St art with 4mg and if ineffective in 45 minutes, give an additional 4mg. If unable to take PO, may give IV., Routine oxyCODONE (ROXICODONE) immediate release tablet 5 mg 1241 (Given - Provider: Roro Casiano, RN)2130 (Given - Provider: Rah Villarreal, RN) 0157 (Given - Provider: Abelardo Catalan, RN)0842 (Given - Provider: Raffi Mahoney, BRYAN) 5 mg, Oral, EVERY 4 HOURS PRN, Starting Sun07/23/18 at 1222, Until Sun07/24/18 at 1452, Pain, Routine prochlorperazine (COMPAZINE) injection 10 mg(Linked Group 5) 10 mg, Intravenous, EVERY 6 HOURS PRN, S tarting Sun07/22/18 at 2334, Until Sun07/24/18 at 1452, Nausea, Nausea/Vomiting, If multiple antiemetics are ordered, use ondansetron first. If ondansetron ineffective use prochlorperazine. , Routine prochlorperazine (COMPAZINE) tablet 10 mg(Linked Group 5) 10 mg, Oral, EVERY 6 HOURS PRN, Starting Sun07/22/18 at 2334, Until Sun07/24/18 at 1452, Nausea, Nausea/Vomiting, If multiple antiemetics are ordered, use ondansetron first. If ondansetron ineffectiv e use prochlorperazine. PO Preferred. If patient unable to take PO, may give IV if ordered., Routine sodium chloride 0.9 % flush 5-20 mL 5-20 mL, Intravenous, EVERY 1 MIN PRN, S tarting Sun07/22/18 at 2334, Until Sun07/24/18 at 1452, flush, Flush pertains to all indwelling lines. Flush per protocol found in the job aid using the link prov ided on this medication record., Recovery ([facility]ospital [facility] t), Routine Linked Groups Order Group 1: POCT Fingerstick Glucose (CANCELED) Routine, EVERY 4 HOURS, First occurrence on Sun07/23/18 at 0000, Until Specified
Consider choosing EVERY 4 HOURS as frequency for: - Type 1 Diabetes - At least 24 hours after coming off an insul in drip - At least 24 hours after admiss ion for DKA - Hypoglycemia unawareness - Patients who are otherwise unstable Select the same frequency for the correction bolus insulin order And insulin lispro (HumaLOG) VIAL injection 1-4 UnitsJump to med 1-4 Units, Subcutaneous, EVERY 4 HOURS S CHEDULED, First dose on Sun07/22/18 at 2141, Until Discontinued
CORRECTION BOLUS Sensitive to insulin lean patient or total daily dose of all insulin needed to achieve g lycemic control less than 30 units BG 140 - 160 Give 1 unit BG 161 - 200 Give 2 units BG 201 - 240 Give 3 units&nbs p; BG greater than 240, give 4 units and recheck BG in 2 hours. If less than 240 after two hours, give no insulin and resume prior schedule. If BG remains greater than 240, repeat 4 u nits (no more than three times) & call f or new basal insulin orders. DO NOT hold if NPO, unless specifically told to do so.
Routine Group 2: pantoprazole (PROTONIX) tablet 40 mgJump to med 40 mg, Oral, DAILY, First dose on 08/10 at 0900, Until Discontinued
DO NOT CRUSH OR OPEN If unable to take PO, may give IV
Routine Or pantoprazole (PROTONIX) injection 40 mgJump to med 40 mg, Intravenous, DAILY, First dose on Sun07/23/18 at 0900, Until Discontinued
Reconstitute with 10 mL of normal saline to a concentration of 4 mg/mL and infuse slowly over 2 minutes.
Routine Group 3: glucose (GLUTOSE) 40% oral gelJump to med 15 g, Oral, PER INSULIN PROTOCOL, Starti ng Sun07/22/18 at 2139, Until Sun07/24/18 at 1452, Low blood sugar
For BG 50-70 mg/dL: 120 mL Juice or Regular (not diet) soda OR 15 gram glucose 40% oral gel OR 12.5 gram (15 mL) Dextrose 5 0% IV OR, if no IV access, 1 mg Glucagon IM. Recheck BG in 30 minutes. May repeat juice, gel, dextrose or glucagon once per episode For BG less than 50 mg/dL: 240 ml Juice or Regualr (not diet) soda OR 30 gram glucose 40% oral gel OR 25 gram (50 mL) Dextrose 50% IV OR, if no IV access, 1 mg Glucagon IM Recheck BG in 30 minutes. May repeat juice, gel, dextr ose or glucagon once per episode. To a void extravasation, push Dextrose 50% SLOWLY (3 mL over 1 minute) in a patent, running IV, preferably a central line For persistent hypoglycemia, consider long er-acting treatment for the duration of the active insulin 1 tube contains 15 grams of glucose (net weight of tube = 37.5 grams.
Routine Or dextrose 50% IV syringe 25-50 mLJump to med 25-50 mL (12.5-25 g), Intravenous, EVERY 1 HOUR PRN, Starting Sun07/22/18 at 2139, Until Sun07/24/18 at 1452, Low blood sugar
For BG 50- 70: 120 mL Juice or Regular (not t) soda OR 12.5 gram (25 mL) Dextrose 50 % IV OR, if no IV access, 1 mg Glucagon IM. Recheck BG in 30 minutes. May repeat juice, dextrose or glucagon once per epis ode For BG less than 50: 240 mL J uice or Regular (not diet) soda OR 25 grams (50 mL) Dextrose 50% IV OR, if no IV access, 1 mg Glucagon IM. Recheck BG in 30 minutes. & nbsp;May repeat juice, dextrose, or gluc agon once per episode. To avoid extravasation, push Dextrose 50% SLOWLY (3 mL over 1 minute) in a patent, running IV, preferably a central line.&nb sp;For persistent hypoglycemia, consid er longer-acting treatment for the duration of the active insulin.
Routine Or glucagon (human recombinant) injection SolR 1 mgJump to med 1 mg, Intramuscular, EVERY 1 HOUR PRN, S tarting Sun07/22/18 at 2139, Until Sun07/24/18 at 1452, Low blood sugar
For BG 50-70: 120 mL Juice or Regular (not diet) soda OR 12. 5 gram (25 mL) Dextrose 50% IV OR, if no IV access, 1 mg Glucagon IM. Recheck BG in 30 minutes. May repeat juice, dextrose or glucagon once per episode * *For BG less than 50: 240 mL Juice or Re gular (not diet) soda OR 25 grams (50 mL) Dextrose 50% IV OR, if no IV access, 1 mg Glucagon IM. Recheck BG in 30 minutes. May repea t juice, dextrose, or glucagon once per episode. To avoid extravasation, push Dextrose 50% SLOWLY (3 mL over 1 minute) in a patent, running IV, preferably a central line. For persi stent hypoglycemia, consider longer-acti ng treatment for the duration of the active insulin.
Routine Group 4: ondansetron (ZOFRAN) tablet 4-8 mgJump to med 4-8 mg, Oral, EVERY 8 HOURS PRN, Startin g Sun07/22/18 at 2334, Until Sun07/24/18 at 1452, Nausea, Vomiting
If multiple antiemetics are ordered, use ondansetron first. PO Preferred . If patient unable to take PO, may give IV if ordered. Start with 4mg and if ineffective in 45 minutes, give an additional 4mg. If unable to take PO, may give IV.
Routine Or ondansetron (ZOFRAN) injection 4-8 mgJump to med 4-8 mg, Intravenous, EVERY 8 HOURS PRN, Starting 07/22/18 at 2334, Until Sun07/24/18 at 1452, Nausea
Start with 4mg and if ineffective in 30 minutes, give an additional 4mg If mu ltiple antiemetics are ordered, give ond ansetron first.
Group 5: prochlorperazine (COMPAZINE) tablet 10 mgJump to med 10 mg, Oral, EVERY 6 HOURS PRN, Starting 07/22/18 at 2334, Until Sun07/24/18 at 1452, Nausea, Nausea/Vomiting
If multiple antiemetics are ordered, use ondansetron first. If ondansetron in effective use prochlorperazine. &nbsp ; PO Preferred. If patient unable to take PO, may give IV if ordered.
Routine Or prochlorperazine (COMPAZINE) injection 10 mgJump to med 10 mg, Intravenous, EVERY 6 HOURS PRN, S tarting 07/22/18 at 2334, Until Sun07/24/18 at 1452, Nausea, Nausea/Vomiting
If multiple antiemetics are ordered, use ondansetron first. If ondansetron ineffective use prochlorperazine.
Routine documented in this encounter Care Teams Rn Anesthesiology Relationship Specialty Start Date End Date Albert Zuleta MD PCP - General Family Medicine 01/17/17 10/26/21 [address] [place] [id number] documented as of this encounter
--- OUTSIDE RECORDS SUMMARY | 2022-02-08 01:59 | XMS_ITS | Encounter Summary ---
:1960 Author Organization [facility] [place] [address] Care Team Providers Name Role Phone Albert Zuleta MD Primary Care Provider Reason for Referral Diagnostic Test (Routine) - Closed Specialty Diagnoses / Procedures Referred By Contact Refer red To Contact Cardiology Diagnoses Cardiomyopathy, unspecified type Joni Drew MD [facility] Non-Inv Card Lab Procedures Echocardiogram Transthoracic(Leb) [facility] [place] [address] [place] [phone] Fax: Referral ID Status Reason Start Date Expiration Date Visits V isits Requested Authorized [id number] Closed Specialty 08/28/2018 08/28/2019 1 1 Service Requested Reason for Visit Diagnostic Test (Routine) - Closed Specialty Diagnoses / Procedures Referred By Contact Refer red To Contact Cardiology Diagnoses Cardiomyopathy, unspecified type Joni Drew MD [facility] Non-Inv Card Lab Procedures Echocardiogram Transthoracic(Leb) [facility] [place] [address] [place] [phone] Fax: Referral ID Status Reason Start Date Expiration Date Visits V isits Requested Authorized [id number] Closed Specialty 08/28/2018 08/28/2019 1 1 Service Requested Encounter Details Date Type Department Care Team Description 08/28/2018 Hospital Encounter Non-Invasive [place], Cardiomyo mitch, Cardiology Lab Miller [place] unspecified type [facility] [place] [phone] Social History Tobacco Use Types Packs/Day Years [...] Description 03/15/2022 Office Visit Neurology Ryann Barfield, [facility] [address] [place], [place] [address] 03/23/2022 Appointment Radiology Hailey Mcclendon MD [facility] [place] [address] 03/23/2022 Laboratory Appointment Lab 03/23/2022 Office Visit Gastroenterology Hailey Mcclendno MD [facility] [place] [address] 05/23/2022 Procedure visit Maxillofacial Surgery Corby Montes MD [facility] [address] [place] [address] documented as of this encounter Procedures Procedure Name Priority Date/Time Associated Comments Diagnosis ECHOCARDIOGRAM COMPLETE Routine 08/28/2018 1:55 Cardiomyopathy , Results for this PM EST unspecified type procedure a re in the results section. documented in this encounter Results ECHOCARDIOGRAM COMPLETE (08/28/2018 1:55 PM EST) P athologist Signature EF 65 [facility] Specimen (Source) Anatomical Location Collection Method / Collectio n Time Received Time / Laterality Volume 08/28/2018 Narrative [facility] - 08/28/2018 2:06 PM EST Procedure: ?Transthoracic Echocardiogram Patient: ?TARA Ray ?(Age): 1960(57y) Med Rec#: ? [id number] ?Sex: ?F ? Site Loc: ? [facility] ?Ht / Wt: ??168(cm)/143(kg) Pt. Loc: ?Echo Lab ?BSA: ?2.43 Study Date: ?? 08/28/2018 ?Pt. Type: Inpatient Tape: ? Referring: JONI DREW A Reading: Leonel Miller ([id number]) Panel Gluer: Albert Muñoz [facility] Diagnosis: Rhythm: ? Bundle Branch Block BP: ? 146/73 SUMMARY: 1. Technically limited 2. There is normal global left ventricul ar systolic function. The quantitative left ventricular ejection f raction by biplane Harden's method is 65%. The ??basal inferoseptal, and ??mid inferoseptal wall segments are hypokinetic (score 2). Ther e is a left ventricular septal wall motion abnormality observed, possib ly due to the presence of a left bundle branch block. 3. Right ventricular chamber size, wall thickness, and systolic function are within normal limits. 4. No significant valvular disease. ?? 5. The pericardium appears normal and th ere is no evidence of a pericardial effusion. Pulmonary artery h ypertension could not be assessed due to inadequate tricuspid reg urgitation jet. ?? When compared to the prior 10/01/09 study, global LV fu nction has improved but the segmental wall motion abnormalities may be new (previously global hypoineses wtih EF ??45%). ?? Findings ? : Study Quality: ? Technically limited Left Ventricle: ? The left ventricle is borderline dilated. ?Left ventricular wall thickness is normal. ?There is normal global left ventri cular systolic function. ?The quantitative left ventricular ejection fraction by biplane Harden's method is 65%. ?There is a left ventricular septal wall motion abnormality observed, possibly due to the presence of a left b undle branch block. ?Doppler assessment is consistent w ith elevated left sided filling pressure. ?The ??basal inferoseptal, and ??mi d inferoseptal wall segments are hypokinetic (score 2). ?Overall wallmotion score index is ??1.13 Left Atrium: ? The left atrium is no rmal in size.25 ml/m2 Right Ventricle: ? Right ventricular chamber size, wall thickness, and systolic function are within normal limi ts. ?Pulmonary artery hypertension coul d not be assessed due to inadequate tricuspid regurgitation jet. Right Atrium: ? The right atrium jonathan ears normal. Aortic Valve: ? The aortic valve is probably tricuspid. ?There is no evidence of aortic maureen ve thickening. ?There is no evidence of aortic maureen [...] present. Pulmonic Valve: ? The pulmonic valve is not well visualized. ?There is no evidence of pulmonic r egurgitation. Pericardium: ? The pericardium appea rs normal and there is no evidence of a pericardial effusion. Aorta: ? The aortic root is normal i n size. ?The ascending aorta is normal in s ize. Pulmonary Artery: ? The main pulmona ry artery appears normal. Venous: ? The inferior vena cava jonathan ears normal in size. ?There is a greater than 50% respir atory change in the inferior vena cava dimension. Misc: ? Technically difficult study. ?See remainder of report for additi onal findings. ?Two-dimensional echo, spectral Dop pler and color Doppler performed. Chambers 2D ?Value ?Units (Range) ? IVSd (2D) ? 1.2 ?cm ? LVPWd (2D) ?0.9 ?cm ? IVS:LVPW ratio (2D) 1.3 ?ratio ? LVIDd (2D) ?5.7 ?cm ? LVIDs (2D) ?3.7 ?cm ? EF Teichholz (2D) ?? 64.8 ? % ? Ao root diameter (2D3.6 ?cm (2.1 - 3.6) ? Ascending Ao ?3.4 ?cm (2 - 3.5) ? Volumes/Mass ?Value ?Units (Range) ? LA ESV BP (MOD) inde24.9 ? ml/m2 ? LV ESV SP 4CH (MOD) 67 ? ml ? LV ESV SP 2CH (MOD) 61.3 ? ml ? LV EDV BP ? 183 ?ml ? LV ESV BP ? 64.2 ? ml ? BP EF (MOD) ? 64.9 ? % ? Diastolic/Systolic Function ?Value ?Units (Range) ? MV E-wave Vmax ?0.8 ?m/sec ? MV deceleration [id number] ?msec ? MV A-wave Vmax ?0.8 ?m/sec ? MV E:A ratio ?0.9 ?ratio ? LV E:e' septal ratio16.7 ? ratio ? LV E:e' lateral rati6.5 ?ratio ? Wall Motion: Segment Name ?Rest ? Base-Anteroseptal ?? Normal ? Base-Anterior ? Normal ? Base-Anterolateral ??Normal ? Base-Posterolateral Normal ? Base-Inferior ? Normal ? Base-Inferoseptal ?? Hypokinetic ? Mid-Anteroseptal ?Normal ? Mid-Anterior ?Normal ? Mid-Anterolateral ?? Normal ? Mid-Posterolateral ??Normal ? Mid-Inferior ?Normal ? Mid-Inferoseptal ?Hypokinetic ? Telferner-Septal ? Normal ? Telferner-Anterior ? Normal ? Telferner-Lateral ?Normal ? Telferner-Inferior ? Normal ? Telferner-Tip ?Normal ? This report has been electronically sign ed by: _ Leonel Miller MD ? 08/28/2018 14:05: 48 Images reviewed and interpretation verif ied [facility] Cardiac Ultrasound Laboratory Procedure Note Leonel Miller MD - 08/28/2018 Procedure: Transthoracic Echocardiogram Patient: TARA Ray (Age): (57y) Med Rec#: [id number] Sex: F Site Loc: [facility] Ht / Wt: 168(cm)/143(kg) Pt. Loc: Echo Lab BSA: 2.43 Study Date: 08/28/2018 Pt. Type: Inpatie nt Tape: Referring: JONI DREW A Reading: Leonel Miller ([id number]) Panel Gluer: Albert Muñoz RDCS Diagnosis: Rhythm: Bundle Branch Block BP: 146/73 SUMMARY: 1. Technically limited 2. There is normal global left ventricul ar systolic function. The quantitative left ventricular ejection f raction by biplane Harden's method is 65%. The basal inferoseptal, a nd mid inferoseptal wall segments are hypokinetic (score 2). Ther e is a left ventricular septal wall motion abnormality observed, possib ly due to the presence of a left bundle branch block. 3. Right ventricular chamber size, wall thickness, and systolic function are within normal limits. 4. No significant valvular disease. 5. The pericardium appears normal and th ere is no evidence of a pericardial effusion. Pulmonary artery h ypertension could not be assessed due to inadequate tricuspid reg urgitation jet. When compared to the prior 10/01/09 study, global LV fu nction has improved but the segmental wall motion abnormalities may be new (previously global hypoineses wtih EF 45%). Findings : Study Quality: Technically limited Left Ventricle: The left ventricle is shyann rderline dilated. Left ventricular wall thickness is norm al. There is normal global left ventricular systolic function. The quantitative left ventricular eject ion fraction by biplane Harden's method is 65%. There is a left ventricular septal wall motion abnormality observed, possibly due to the presence of a left b undle branch block. Doppler assessment is consistent with e levated left sided filling pressure. The basal inferoseptal, and mid inferos eptal wall segments are hypokinetic (score 2). Overall wallmotion score index is 1.13 Left Atrium: The left atrium is normal i n size.25 ml/m2 Right Ventricle: Right ventricular chamb er size, wall thickness, and systolic function are within normal limi ts. Pulmonary artery hypertension could not be assessed due to inadequate tricuspid regurgitation jet. Right Atrium: The right atrium appears n ormal. Aortic Valve: The aortic valve is probab ly tricuspid. There is no evidence of aortic valve th ickening. There is no evidence of aortic valve st enosis. There is no evidence of aortic regurgit ation. Mitral Valve: The mitral valve leaflets are mildly thickened. There is posterior mitral annular calci fication. There is trace mitral regurgitation pre sent. Tricuspid Valve: The tricuspid valve jonathan ears normal in structure and function. There is trace tricuspid regurgitation present. Pulmonic Valve: The pulmonic valve is no t well visualized. There is no evidence of pulmonic regurg itation. Pericardium: The pericardium appears nor mal and there is no evidence of a pericardial effusion. Aorta: The aortic root is normal in size . The ascending aorta is normal in size. Pulmonary Artery: The main pulmonary art jose appears normal. Venous: The inferior vena cava appears n ormal in size. There is a greater than 50% respiratory change in the inferior vena cava dimension. Misc: Technically difficult study. See remainder of report for additional findings. Two-dimensional echo, spectral Doppler and color Doppler performed. Chambers 2D Value Units (Range) IVSd (2D) 1.2 cm LVPWd (2D) 0.9 cm IVS:LVPW ratio (2D) 1.3 ratio LVIDd (2D) 5.7 cm LVIDs (2D) 3.7 cm EF Teichholz (2D) 64.8 % Ao root diameter (2D3.6 cm (2.1 - 3.6) Ascending Ao 3.4 cm (2 - 3.5) Volumes/Mass Value Units (Range) LA ESV BP (MOD) inde24.9 ml/m2 LV ESV SP 4CH (MOD) 67 ml LV ESV SP 2CH (MOD) 61.3 ml LV EDV BP 183 ml LV ESV BP 64.2 ml BP EF (MOD) 64.9 % Diastolic/Systolic Function Value Units (Range) MV E-wave Vmax 0.8 m/sec MV deceleration [id number] msec MV A-wave Vmax 0.8 m/sec MV E:A ratio 0.9 ratio LV E:e' septal ratio16.7 ratio LV E:e' lateral rati6.5 ratio Wall Motion: Segment Name Rest Base-Anteroseptal Normal Base-Anterior Normal Base-Anterolateral Normal Base-Posterolateral Normal Base-Inferior Normal Base-Inferoseptal Hypokinetic Mid-Anteroseptal Normal Mid-Anterior Normal Mid-Anterolateral Normal Mid-Posterolateral Normal Mid-Inferior Normal Mid-Inferoseptal Hypokinetic Telferner-Septal Normal Telferner-Anterior Normal Telferner-Lateral Normal Telferner-Inferior Normal Telferner-Tip Normal This report has been electronically sign ed by: _ Leonel Miller MD 08/28/2018 14:05:48 Images reviewed and interpretation ver ied [facility] Cardiac Ultrasound Laboratory Joni Drew MD ECHO ORDERABLES Performing Organization Address City/State/ZIP Code Phon e Number [facility] documented in this encounter Visit Diagnoses Diagnosis Cardiomyopathy, unspecified type documented in this encounter Care Teams Artist Color Separation Relationship Specialty Start Date End Date Albert Zuleta MD PCP - General Family Medicine 01/17/17 10/26/21 [address] [place] [phone] documented as of this encounter
--- OUTSIDE RECORDS SUMMARY | 2022-02-08 01:59 | XMS_ITS | Encounter Summary ---
:1960 Author Organization [facility] [place] [address] Care Team Providers Name Role Phone Albert Zuleta MD Primary Care Provider Reason for Referral Diagnostic Test (Routine) - Closed Specialty Diagnoses / Procedures Referred By Contact Refer red To Contact Radiology Diagnoses Cardiomyopathy, unspecified type Pre-operative cardiovascular examination Joni Drew MD [facility] Rad Nuclear Med Procedures NM Pharmacologic Stress Myocardial Perfusion [facility] [place], [place] [id number] [place] [phone] Fax: Referral ID Status Reason Start Date Expiration Date Visits V isits Requested Authorized [id number] Closed Specialty 08/28/2018 08/28/2019 4 4 Service Requested Diagnostic Test (Routine) - Specialty Diagnoses / Procedures Referred By Contact Refer red To Contact Radiology Diagnoses Cardiomyopathy, unspecified type Pre-operative cardiovascular examination Joni Drew MD [facility] Rad Nuclear Med Procedures NM Pharmacologic Stress CT Component [facility] [place] [address] [place] [phone] Fax: Referral ID Status Reason Start Date Expiration Visits Visits Date Requested Authorized [id number] Specialty 08/28/2018 08/28/2019 1 1 Service Requested Diagnostic Test (Routine) - Closed Specialty Diagnoses / Procedures Referred By Contact Refer red To Contact Cardiology Diagnoses Cardiomyopathy, unspecified type Joni Drew MD [facility] Non-Inv Card Lab Procedures Echocardiogram Transthoracic(Leb) [facility] [address] [phone] Fax: Referral ID Status Reason Start Date Expiration Date Visits V isits Requested Authorized [id number] Closed Specialty 08/28/2018 08/28/2019 1 1 Service Requested Reason for Visit Consultation (Routine) - Closed Specialty Diagnoses / Procedures Referred By Contact Refer red To Contact Cardiology Diagnoses history of CHF unclear etiology for eval prior to elective abdominal surgery/hernia repair Ace Henry MD [facility] Cardiology 4a [facility] D R [facility] GENERAL SURGERY [place] [id number], [place] [address] Referral ID Status Reason Start Date Expiration Date Visits V isits Requested Authorized [id number] Closed Consult, 08/19/2018 08/19/2019 1 1 Test & Treat Encounter Details Date Type Department Care Team Description 08/28/2018 Office Visit Cardiology at [facility] Joni Drew Cardiomyopathy, unspecified type; [facility] MD Hermilo Pre-operative cardiovascular examination ; [facility] Congestive heart failure, un specified HF chronicity, unspecified heart failure type [facility] [id number] Cardiology [phone] [place], [place] [address] Social History Tobacco Use Types [...] Sign Reading Time Taken Comments Blood Pressure 146/73 08/28/2018 10:00 AM EST Pulse 78 08/28/2018 10:00 AM EST Temperature - - Respiratory Rate - - Oxygen Saturation 97% 08/28/2018 10:00 AM EST Inhaled Oxygen Concentration - - Weight 142.9 kg (315 lb) 08/28/2018 10:00 AM EST Height 167.6 cm (5' 6) 08/28/2018 10:00 AM EST Body Mass Index 50.84 08/28/2018 10:00 AM EST documented in this encounter Progress Notes Joni Drew MD - 08/28/2018 10:00 AM EST Cardiology Clinic Note CC: CHF Patient Name: Blossom Samayoa HPI: 57 yr old woman with a medical history notable for HTN, MOSES, COPD, diabetes, IBS, nephrolithiasis, recent ureteral stent placed, and an abdominal wall hernia scheduled for surgical repair with . She has a procedure scheduled with Urology for surgical removal of a kidney stone on the right. She reports that her CV history includes a LBBB and a slightly damage left ventricle. She is here today as an urgent add on in the consult clinic for preoperative evaluation as CHF is mentioned in her medical history. ?? States that she is able to care for herself and her home. She shovels her walkway and driveway. Reports that she is limited by dyspnea and chronic LBP. Has trouble getting up a flight of stairs. Goes one step at a time and has to go slowly. No chest pain or palpitaitons. States that her pulmonary symptoms have improved significantly since quitting smoking over 2 years ago. Social Hx: - Lives in [place], [place] - Tobacco: Former smoker; quit 2017 - EtOH: Never Family Hx: - Reviewed Patient Active Problem List Diagnosis Code ??? CIS - Cardiomyopathy ??? CIS - Chest pain ??? CIS - Depression ??? CIS - Diabetes Mellitus ??? CIS - Entered not Verified ??? CIS - Herpes simplex ??? CIS - LBBB ??? CIS - Nephrolithiasis ??? CIS - Obesity ??? CIS - OCD ??? CIS - Osteoma, R ear canal ??? CIS - Sarcoidosis ??? Nephrolithiasis N20.0 ??? Ventral hernia K43.9 Past Surgical History: Procedure Laterality Date ??? PRO CYSTOSCOPY, INSERT URETERAL STENT Right 07/10/2018 CYSTO, STENT PLACEMENT (WRVU 2.82) performed by Viky Sears MD at [facility] MAIN OR ??? PRO CYSTOURETHROSCOPY, URETER CATHETER Right 07/10/2018 CYSTO, RETROGRADE, URETEROPYELOGRAPHY (WRVU 2.37) performed by Viky Sears MD at [facility] MAIN OR Meds: Outpatient Medications Marked as Taking for the 08/28/18 encounter (Office Visit) with Joni Drew MD Medication Sig Dispense Refill ??? atorvastatin (LIPITOR) 10 mg Tablet Take 10 mg by mouth daily. ??? dulaglutide (TRULICITY SUBQ) Inject subcutaneously once a week. ??? HYDROcodone-acetaminophen (NORCO) 5-325 mg Tablet Take 1 tablet by mouth 2 times daily. ??? polyethylene glycol (MIRALAX) 17 gram Powder in Packet Take 17 g by mouth daily. 14 each 0 ??? senna-docusate (PERICOLACE) 8.6-50 mg Tablet Take 1 tablet by mouth daily. 60 tablet 11 ??? acetaminophen (TYLENOL) 325 mg Tablet Take 2 tablets by mouth every 6 hours. 30 tablet 1 ??? magnesium hydroxide (MILK OF MAGNESIA) 2,400 mg/10 mL Suspension Take 15 mLs by mouth daily as needed for Constipation. ??? aspirin 81 mg Tablet, Chewable Take [...] TABLET BY MOUTH TWICE A DAY1 ??? multivitamin (THERAGRAN) tablet Social History Socioeconomic History ??? Marital status: [...] Social History Narrative ??? Not on file 24 HR Review of Systems: Constitutional: No fevers; chills or malaise Eyes: No visual disturbances ENT: No jaw pain; no difficulty swallowing or chewing, no mouth sores/mucositis Neck: No neck pain Cardiovascular: No Chest Pain; No palpitations Respiratory: No SOB; No LIM; No cough GI/Abdomen: No Diarrhea; No Constipation; No Nausea/Vomiting : No dysuria; no hematuria Extremities: No swelling; No calf tenderness; no bleeding Neuro: No headaches; No sensory deficits Vitals: Last value Range last 24 hrs Temperature Temp: [36.4 ??C (97.6 ??F)] Heart Rate Heart Rate: 78 Heart Rate: [77-78] Blood Pressure BP: 146/73 BP: (146-151)/(72-73) Respiratory Rate Resp: -- SpO2 SpO2: 97 % SpO2: [97 %] Examination: CONST: Pleasant, Well-appearing NEURO: Oriented x3; no obvious deficits PSYCH: NAD, Normal mood HEENT: Non-icteric sclera MSK: Ambulates w/ a cane CV: JVP not elevated; RRR, normal S1+S2, no murmurs PULM: CTAB GI: Soft, non-tender, non-distended, +BS EXTREMITIES: No lower extremity edema; 2+ Radial pulses bilaterally SKIN: No rashes Laboratory: No results for input(s): WBC, HGB, HCT, PLATELET in the last 168 hours. No results for input(s): NA, K, CL, CO2, BUN, CREATININE in the last 168 hours. No results for input(s): AST, ALT, ALKPHOS, BILITOT, BILIDIR in the last 168 hours. No results for input(s): CALCIUM, PHOS in the last 168 hours. EKG (08/28/2018): Sinus, LBBB, HR: 79 BPM Diagnostic Studies: TTE (2009) 1. The left ventricle is [...] imaging studies ASSESSMENT: Ms. Samayoa is a nice 57 yr old woman with morbid obesity, hypertension, MOSES, COPD, diabetes, IBS, nephrolithiasis, recent ureteral stent placement, and an abdominal wall hernia scheduled for surgical repair with Dr. Henry and surgical kidney stone removal who is here for preoperative evaluation. CV history is notable for a LBBB and cardiomyopathy with an LVEF of 45% last assessed in 2009. Will send for a TTE later today to reassess her LV function. Regarding perioperative management, her functional capacity is quite poor, and she is unable to achieve 4 METs of activity. Therefore, according to the ACC/AHA guidelines for perioperative management, I am referring her for a nuclear stress test for further risk stratification. It does not seem as though her cardiomyopathy, which was diagnosed back in 2007, has been adequately evaluated or monitored over the years. However, she is on appropriate medical therapies with carvedilol, lisinopril, and Spironolactone. Further recommendations regarding preoperative management pending results of today's echocardiogram and her nuclear stress test. PLAN: # Cardiomyopathy - Last TTE was 2009; LVEF was 45% - Very limited functional capacity; unable to achieve 4 METs - Continue carvedilol 3.125 mg BID, lisinopril 5 mg daily, and spironolactone - Continue atorvastatin - ASA on hold prior to surgery - Need repeat TTE to assess LV function - Will also send for a nuclear stress test (pharmacologic) to assess for ischemia/scar # Hypertension - BP borderline today - Will continue to monitor Joni Drew MD, FACP, FACC Section of Cardiovascular Medicine [facility] Health Informatics Instructorcomposing room machinist [employer] [facility] documented in this encounter Plan of Treatment Upcoming Encounters Date Type Specialty Care Team Description 03/15/2022 Office Visit Neurology Ryann Barfield APRN [facility] [address] [place], [place] [address] 03/23/2022 Appointment Radiology Hailey Mcclendon MD [facility] [place] [address] 03/23/2022 Laboratory Appointment Lab 03/23/2022 Office Visit Gastroenterology Hailey Mcclendon MD [facility] [address] [place] [address] 05/23/2022 Procedure visit Maxillofacial Surgery Corby Montes MD [facility] [place], [place] [address] documented as of this encounter Procedures Procedure Name Priority Date/Time Associated Diagnosis Comme nts EKG 12-LEAD Routine 08/28/2018 10:04 AM Pre-operative Results for this EST cardiovascular procedure are in examination the results Congestive heart section. failure, unspecified HF chronicity, unspecified heart failure type documented in this encounter Results NM Pharmacologic [...] below. Joni Drew MD IMG NM ORDERABLES Nuclear Pharmacologic Stress Cardiology (08/29/2018 10:23 AM EST) Specimen (Source) Anatomical Location Collection Method / Collectio n Time Received Time / Laterality Volume Narrative This result has an attachment that is no t available. Joni Drew MD CARDIAC SERVICES ORDERABLES NM Pharmacologic Stress Myocardial Perfusion (08/29/2018 10:19 AM EST) Anatomical Region Laterality Modality Nuclear [...] contact e number below. Joni Drew MD [facility] NM ORDERABLES ECHOCARDIOGRAM COMPLETE (08/28/2018 1:55 PM EST) P athologist Signature EF 65 [employer] Specimen (Source) Anatomical Location Collection Method / Collectio n Time Received Time / Laterality Volume 08/28/2018 Narrative HEARTLAB SYSTEM - 08/28/2018 2:06 PM EST Procedure: ?Transthoracic Echocardiogram Patient: ?TARA Ray ?(Age): 1960(57y) Med Rec#: ? [id number] ?Sex: ?F ? Site Loc: ? [facility] ?Ht / Wt: ??168(cm)/143(kg) Pt. Loc: ?Echo Lab ?BSA: ?2.43 Study Date: ?? 08/28/2018 ?Pt. Type: Inpatient Tape: ? Referring: JONI DREW A Reading: Leonel Miller ([id number]) Core Java Software Engineer: Albert Muñoz RDCS Diagnosis: Rhythm: ? Bundle Branch Block BP: [...] E-wave Vmax ?0.8 ?m/sec ? MV deceleration [id number] ?msec ? MV A-wave Vmax ?0.8 ?m/sec [...] ? Mid-Inferior ?Normal ? Mid-Inferoseptal ?Hypokinetic ? [place]man-Septal ? Normal ? [place]man-Anterior ? Normal ? [place]man-Lateral ?Normal ? [place]man-Inferior ? Normal ? [place]man-Tip ?Normal ? This report has been electronically sign ed by: _ Leonel Miller MD ? 08/28/2018 14:05: 48 Images reviewed and interpretation verif ied [facility] Cardiac Ultrasound Laboratory Procedure Note Leonel Miller MD - 08/28/2018 Procedure: Transthoracic Echocardiogram Patient: TARA Ray (Age): (57y) Med Rec#: [id number] Sex: F Site Loc: [facility] Ht / Wt: 168(cm)/143(kg) Pt. Loc: Echo Lab BSA: 2.43 Study Date: 08/28/2018 Pt. Type: Inpatie nt Tape: Referring: JONI DREW A Reading: Leonel Miller ([id number]) Core Java Software Engineer: Albert Muñzo RDCS Diagnosis: Rhythm: Bundle Branch Block BP: [...] MV E-wave Vmax 0.8 m/sec MV deceleration [id number] msec MV A-wave Vmax 0.8 m/sec MV E:A ratio 0.9 ratio LV E:e' septal ratio16.7 ratio LV E:e' lateral rati6.5 ratio Wall Motion: Segment Name Rest Base-Anteroseptal Normal Base-Anterior Normal Base-Anterolateral Normal Base-Posterolateral Normal Base-Inferior Normal Base-Inferoseptal Hypokinetic Mid-Anteroseptal Normal Mid-Anterior Normal Mid-Anterolateral Normal Mid-Posterolateral Normal Mid-Inferior Normal Mid-Inferoseptal Hypokinetic Lowman-Septal Normal Lowman-Anterior Normal Lowman-Lateral Normal Lowman-Inferior Normal Lowman-Tip Normal This report has been electronically sign ed by: _ Leonel Miller MD 08/28/2018 14:05:48 Images reviewed and interpretation verif ied [facility] Cardiac Ultrasound Laboratory Joni Drew MD ECHO ORDERABLES Performing Organization Address City/State/ZIP Code Phon e Number HEARTLAB SYSTEM EKG 12 Lead (08/28/2018 10:04 AM EST) Component Value Ref Range Test Analysis Performed Pathologis t Method Time At Signature Ventricular rate 79 BPM MUSE SYSTEM Atrial Rate 79 BPM MUSE SYSTEM P-R Interval 168 ms MUSE SYSTEM QRS Duration 138 ms MUSE SYSTEM Q-T Interval 408 ms MUSE SYSTEM QTC Calculated 467 ms MUSE SYSTEM (Bezet) Calculated P [place] 30 degrees MUSE SYSTEM Calculated R [place] -13 degrees MUSE SYSTEM Calculated T [place] 91 degrees MUSE SYSTEM INTERPRETATION Normal sinus rhythm MUSE SYSTEM Left bundle branch block Abnormal ECG When compared with ECG of 09-JUL-2018 18:18, No significant change was found I personally reviewed the tracing and edited the fellows int erpretation Confirmed by fellow MD Trey, Kentrell ([id number]) on 08/28/2018 1 0:19:16 AM Confirmed by MD Dali, Tomas ([id number]) on 08/28/2018 4:32:04 PM Specimen Anatomical Collection Method Collection Time Receive d Time (Source) Location / / Volume Laterality 08/28/2018 10:04 08/28/2018 4:32 AM EST PM EST Joni Drew MD ECG ORDERABLES Performing Organization Address City/State/ZIP Code Phon e Number MUSE SYSTEM documented in this encounter Visit Diagnoses Diagnosis Cardiomyopathy, unspecified type Pre-operative cardiovascular examination Congestive heart failure, unspecified HF chronicity, unspecified heart failure type Cardiomyopathy, unspecified type Cardiomyopathy, unspecified type Pre-operative cardiovascular examination Cardiomyopathy, unspecified type Pre-operative cardiovascular examination documented in this encounter Care Teams Corporate Risk Analyst Relationship Specialty Start Date End Date Albert Zuleta MD PCP - General Family Medicine 01/17/17 10/26/21 [place] [address] documented as of this encounter
--- OUTSIDE RECORDS SUMMARY | 2022-02-08 01:59 | XMS_ITS | Encounter Summary ---
:1960 Author Organization [facility] [place] [address] Care Team Providers Name Role Phone Albert Zuleta MD Primary Care Provider Reason for Visit Reason Comments Nephrolithiasis Consultation (Routine) - Closed Specialty Diagnoses / Procedures Referred By Contact Refer red To Contact Urology Diagnoses LARGE KIDNEY STONE Latoya Menjivar APRN [facility] [address] [place] [id number] Referral ID Status Reason Start Date Expiration Date Visits V isits Requested Authorized [id number] Closed Consult, 06/19/2018 06/19/2019 1 1 [facility] Encounter Details Date Type Department Care Team Description 08/28/2018 Office Visit Urology at [facility] Meghana Galvin Jr., Nephrolithiasis [facility] [place] [address] [facility] [phone] UROLOGY DEPT. [place], [place] [address] (Wo rk) Social History Tobacco [...] Sign Reading Time Taken Comments Blood Pressure 151/72 08/28/2018 9:02 AM EST Pulse 77 08/28/2018 9:02 AM EST Temperature 36.4 ??C (97.6 ??F) 08/28/2018 9:02 AM EST Respiratory Rate - - Oxygen Saturation - - Inhaled Oxygen Concentration - - Weight - - Height - - Body Mass Index - - documented in this encounter Progress Notes Meghana Galvin Jr., MD - 08/28/2018 8:30 AM EST STAFF ADDENDUM: I saw and examined Blossom Samayoa with Dr. Rodriguez, and have independently reviewed her imaging studies. I agree with history, exam, impression, and plan as noted. She wishes to proceed with RIGHT PCNL. Informed consent confirmed. Linda Rodriguez MD - 08/28/2018 8:30 AM EST Urology Clinic Note CC: nephrolithiasis HPI: Blossom Samayoa is a 57 year old [...] Dr. Sears on 07/09/2019. Urine cultures from [facility] showed Proteus Mirabilis. Blood cultures at [facility] showed no growth. He was discharged on a two-week course of Cefpodoxime. During this hospital stay, she was counseled on and consented for right-PCNL in August, which has been scheduled for 09/05/2018. We also discussed the possibi lity of left PCNL a few months later. Since her admission for the urolithiasis, she was also admitted to the General Surgery Service for an incarcerated incisional hernia with bowel obstruction on 07/22/2018. She was treated conservativelyand was discharged on 07/24/1018. Ms. Samayoa reports that she has seen her local urologist, Dr. Zuleta, in [facility] for dysuria and hematuria. A culture was taken and she is now on a course of Keflex, which ends on 09/04/2018, the day prior to her PCNL. Also of note, she has been recently diagnosed with obstructive sleep apnea. She has been prescribed a CPAP machine, but this does not come in the mail until 09/10/2018. She is not a blood thinners currently as she stopped her daily ASA 81 mg yesterday. She does have anappointment with her account executive sales representative this afternoon. Past Medical History: Cardiomyopathy Diabetes Depression HTN HLD MOSES Chronic pain Nephrolithiasis - has had several lithotripsies in the past Past Surgical History: Lithotripsies Open cholecystectomy Open total hysterectomy Family History: No family history of kidney stones Social History Lives alone Former smoker No EtOH Home medications: Tylenol ASA 81 mg Glipizide-metformin Neurotin Spironolactone Levaalbuterol Coreg Januvia Lisinopril Magnesium oxide Claritin MV Atorvastatin Review of Systems Constitution: Negative for chills, fever and weight loss. Eyes: Positive for blurred vision and pain. Negative for double vision. Cardiovascular: Negative for chest pain. Respiratory: Negative for cough, shortness of breath and wheezing. Hematologic/Lymphatic: Negative for adenopathy and bleeding problem. Does not bruise/bleed easily. Skin: Negative for itching and rash. Musculoskeletal: Positive for back pain and joint pain. Negative for neck pain. Gastrointestinal: Negative for abdominal pain, heartburn, nausea and vomiting. Genitourinary: Positive for dysuria. Negative for flank pain and hematuria. Neurological: Negative for dizziness and tremors. Allergic/Immunologic: Negative for hives. Physical Exam Constitutional: She is oriented to person, place, and time. She appears well- developed and well-nourished. No distress. Morbidly obese HENT: Head: Normocephalic and atraumatic. Eyes: No scleral icterus. Cardiovascular: Normal rate, regular rhythm and normal heart sounds. Pulmonary/Chest: Effort normal and breath sounds normal. No respiratory distress. She has no wheezes. Abdominal: Soft. She exhibits no distension. There is no tenderness. There is no rebound and no guarding. Genitourinary: Genitourinary Comments: No CVA tenderness to percussion bilaterally Musculoskeletal: Normal range of motion. She exhibits no edema or tenderness. Neurological: She is alert and oriented to person, place, and time. Skin: Skin is warm and dry. She is not diaphoretic. Psychiatric: She has a normal mood and affect. Her behavior is normal. Imagin07/09/2018 CT A/P ([facility]) Bilateral nephrolithiasis. Severe right hydronephrosis secondary to an impacted stone at the ureteropelvic junction as described [below]. There is a large incarcerated mid to distal small bowel hernia Atherosclerotic changes in the vasculature in the thorax abdomen and pelvis. No vascular acute abnormality is suggested. ?? There are severe hydronephrotic changes involving the right kidney and there ia a large proximal right ureteral stone measuring up to 16.4mm in maximal diameter. The ureter distal to this calculus which is impacted at the ureteropelvic junction is unremarkable. There is nonobstructing left nephrolithiasis. Also there is a large lower pole renal calculus measuring up to 3x1.3cm. There is no evidenc eof left hydronephrosis. The left ureter is unremarkable. Assessment/Plan: 1. 1.6 cm right UPJ stone + 4-5 mm distal right ureteral stone s/p right ureteral stent placement on07/09/2019 Again, we discussed management options of watchful waiting, open or laparoscopic surgery, PCNL, Ureteroscopy, and SWL and the relative risks and benefits. With regard to right percutaneous nephrolithotomy, we specifically discussed risks of bleeding, infection, injury to or loss of kidney, and injury to surrounding structures including lung, pleura, bowel, blood vessels, nerves, and solid organs, as well as risks of anesthesia including heart attack, stroke, DVT, pulmonary embolus, or . We discussed that there may be a need for subsequent staged procedures. She would like to attempt definitive removal of the right UPJ stone and the right distal ureteral stone, understands the risks and benefits of the options, and has requested that we proceed with PCNL, which has been scheduled for on 09/05/2018. Urine will be sent for culture today to aid in pre-op antibiotic selection. She knows to stay off her ASA until the procedure. Given her other co-morbidities, we will try to have to anesthesia today. She is also seeing her Brim Rounder today. We have ordered a type and screen, as well as a CBC and BMP today. 2. 2 cm left renal stone, non-obstructing Again, we discussed management options of watchful waiting, open or laparoscopic surgery, PCNL, Ureteroscopy, and SWL and the relative risks and benefits. We discussed that since this stone is non-obstructing, we can hold off on any urgent treatment. We recommend considering left PCNL once her right collecting system is clear of stone. She understands. STAFF ADDENDUM: I saw and examined Blossom Samayoa with Dr. Rodriguez, have independently reviewed her CT, and concur with history, exam, impression, and plan as noted and amended. MEGHANA GALVIN JR, MD documented in this encounter Plan of Treatment Upcoming Encounters Date Type Specialty Care Team Description 03/15/2022 Office Visit Neurology Ryann Barfield APRN [facility] [address] [place], [place] [address] 03/23/2022 Appointment Radiology Hailey Mcclendon MD [facility] RICHARD Sanders [address] 03/23/2022 Laboratory Appointment Lab 03/23/2022 Office Visit Gastroenterology Hailey Mcclendon MD [facility] Dr Causey [place] [address] 05/23/2022 Procedure visit Maxillofacial Surgery Corby Montes MD [facility] Dr Causey MD [address] documented as of this encounter Procedures Procedure Name Priority Date/Time Associated Diagnosis Comme nts _URINALYSIS WITH Routine 08/28/2018 9:53 AM Nephrolithiasis Re sults for this MICROSCOPIC EST procedure are i n the results section. URINE CULTURE Routine 08/28/2018 9:53 AM Nephrolithiasis Resul ts for this EST procedure are i n the results section. documented in this encounter Results (ABNORMAL) Basic Metabolic Panel (non-fasting) (08/28/2018 12:27 PM EST) P athologist Signature Glucose Lvl 139 65 - 199 [facility] mg/dL [facility] Comment: Diabetes: >=200 mg/dL plus symp toms BUN 10 8 - 18 mg/dL [facility] Creatinine 0.72 0.70 - 1.20 mg/dL [facility] Sodium 142 135 - 145 mmol/L [facility] Potassium 4.6 3.5 - 5.0 mmol/L [facility] Comment: Please note: ??Patients with WBC >100,00 0 may have falsely elevated Potassium levels. ??For accurate Potassium quantif ication in these patients send serum separator tube (gold top) for subsequent determinations. ??Contact the Clinical Chemistry Laboratory if there are any qu estions. Chloride 102 98 - 107 mmol/L [facility] CO2 27 22 - 31 mmol/L [facility] Anion Gap 13 5 - 15 mmol/L [facility] Calcium 11.9 (H) 8.5 - 10.5 mg/dL [facility] Estimated GFR 92 >=60 mL/min/1.73 m?? [facility] Comment: The eGFR was calculated using the CKD-EP I equation. As with all creatinine based estimates of kidney function, eGFR values calculated with the CKD-EPI equation are not accurate in patients wi th acute kidney failure, extremes of body mass or the acutely ill. [email or web address] eGFR 107 >=60 mL/min/1.73 m?? [facility] Comment: The eGFR was calculated using the CKD-EP I equation. As with all creatinine based estimates of kidney function, eGFR values calculated with the CKD-EPI equation are not accurate in patients wi th acute kidney failure, extremes of body mass or the acutely ill. [email or web address] Specimen Anatomical Collection Method Collection Time Receive d Time (Source) Location / / Volume Laterality Blood specimen 08/28/2018 12:27 9 (specimen) PM EST 12:53 PM EST Resulting Agency Comment Spec In Lab Meghana Galvin Jr., MD CHEMISTRY ORDERABLES Performing Organization Address City/[facility] Phon e Number [address] Urine culture Clean Catch Urine (08/28/2018 9:53 AM EST) [facility] Vital Access Method Time Signature Urine Culture No growth [facility] (Less than [facility] 1,000 [facility] cfu/ml). LABORATORY Specimen (Source) Anatomical Collection Method Collection Time Re ceived Time Location / / Volume Laterality Urine specimen 08/28/2018 9:53 08/28/2018 obtained by clean AM EST 11:[address] catch procedure (specimen) Resulting Agency Comment Spec In Lab Meghana Galvin Jr., MD MICROBIOLOGY - GENERAL ORDER ELINA Performing Organization Address City/[facility] Phon e Number [address] (ABNORMAL) _Urinalysis with microscopic (08/28/2018 9:53 AM EST) [facility] Vital Access Method Time Signature Glucose UA Negative Negative [facility] mg/dL [facility] Protein UA 100 (A) Negative [facility] mg/dL [facility] Bilirubin UA Negative Negative [facility] mg/dL [facility] Comment: Clinical correlation required for positi ve Urine Bilirubin results as false positive may occur with some drugs and d rug related products. If a false positive is suspected a serum total bili bailon should be considered if clinically indicated. Urobilinogen UA Normal Normal mg/dL [facility] pH UA 6.0 5.0 - 8.0 [facility] Blood UA Large (A) Negative mg/dL [facility] Ketones UA Negative Negative mg/dL [facility] Nitrite UA Negative Negative [facility] Leukocytes UA Large (A) Negative mcL [facility] Appearance UA Cloudy (A) Clear [facility] Spec Gaylord UA 1.012 1.002 - 1.030 [facility] Color UA Yellow Yellow [facility] RBC UA >182 (H) 0 - 4 /HPF [facility] WBC UA >182 (H) 0 - 5 /HPF [facility] Yeast Ranger UA Occasional (A) None /HPF [facility] Squam Epith UA 1 <=4 /HPF [facility] Specimen Anatomical Collection Method Collection Time Receive d Time (Source) Location / / Volume Laterality Urine specimen 08/28/2018 9:53 AM 019 (specimen) EST 11:13 AM EST Resulting Agency Comment Spec In Lab Meghana Galvin Jr., MD URINE ORDERABLES Performing Organization Address City/State/[place] [address] documented in this encounter Visit Diagnoses Diagnosis Nephrolithiasis Calculus of kidney documented in this encounter Care Teams Life Skills Coach Relationship Specialty Start Date End Date Albert Zuleta MD PCP - General Family Medicine 01/17/17 10/26/[address] [place] [address] documented as of this encounter
--- OUTSIDE RECORDS SUMMARY | 2022-02-08 01:59 | XMS_ITS | Encounter Summary ---
:1960 Author Organization [facility] [place] [address] Care Team Providers Name Role Phone Albert Zuleta MD Primary Care Provider Encounter Details Date Type Department Care Team Description 08/28/2018 Laboratory Appointment Lab at [facility] Nephrolithiasis [facility] [place] [address] Social History Tobacco Use Types Packs/Day [...] APRN [facility] DR DENISA CASUEY MD 0375 03/23/2022 Appointment Radiology Hailey Mcclendon MD [facility] RICHARD Sanders 0375 03/23/2022 Laboratory Appointment Lab 03/23/2022 Office Visit Gastroenterology Hailey Mcclendon MD [facility] Dr Causey [place] 0375 05/23/2022 Procedure visit Maxillofacial Surgery Corby Montes MD [facility] RICHARD Sanders 0375 documented as of this encounter Procedures Procedure Name Priority Date/Time Associated Diagnosis Comme nts ABORH RECHECK Routine 08/28/2018 12:28 Results fo r this STATUS PM EST procedure are i n the results section. TYPE AND SCREEN, Routine 08/28/2018 12:28 Nephrolithiasis SDP (FUTURE PM EST SURGERY, [facility] SAME DAY PROGRAM ONLY) ABO/RH TYPING Routine 08/28/2018 12:28 Nephrolithiasis Results for this PM EST procedure are i n the results section. ANTIBODY SCREEN Routine 08/28/2018 12:28 Nephrolithiasis Resul ts for this PM EST procedure are i n the results section. HEMOGRAM Routine 08/28/2018 12:27 Nephrolithiasis Results for this PM EST procedure are i n the results section. DIFFERENTIAL, Routine 08/28/2018 12:27 Nephrolithiasis Results for this AUTOMATED PM EST procedure are i n the results section. CBC (WITH DIFF) Routine 08/28/2018 12:27 Nephrolithiasis PM EST BASIC METABOLIC STAT 08/28/2018 12:27 Nephrolithiasis Resul ts for this PANEL (NON-FASTING) PM EST procedur e are in the results section. documented in this encounter Results ABORH Recheck Status (08/28/2018 12:28 PM EST) [facility] gist Method Time Signature ABORH Recheck Order Placed [facility] LABORATORY ABORH Type Complete [facility] LABORATORY Specimen Anatomical Collection Method Collection Time Receive d Time (Source) Location / / Volume Laterality Blood specimen 08/28/2018 12:28 9 (specimen) PM EST 12:30 PM EST Resulting Agency Comment Spec In Lab Linda Rodriguez MD BLOOD BANK ORDERABLES Performing Organization Address City/[facility]/ZIP Code Phon e Number [place] [phone] Antibody screen (08/28/2018 12:28 PM EST) [facility] Method Time Signature Ab Screen Negative [facility] LABORATORY Expires at 09/29/2018 HAILEY ANDERSON [id number] on: [facility] LABORATORY Comment: Corrected from 10/12/18 0:00:00 EDT [Unk nown] on 09/19/18 16:59:53 EST by Maira Pritchard Corrected from 09/08/18 0:00:00 EST [Unk nown] on 09/06/18 14:13:36 EST by Rose Evans Specimen Anatomical Collection Method Collection Time Receive d Time (Source) Location / / Volume Laterality Blood specimen 08/28/2018 12:28 9 (specimen) PM EST 12:30 PM EST Resulting Agency Comment Spec In Lab Linda Rodriguez MD BLOOD BANK ORDERABLES Performing Organization Address City/[facility]/ZIP Code Phon e Number [place] [phone] [facility] [address] ABO/Rh Typing (08/28/2018 12:28 PM EST) athologist Signature ABORh Type O Pos [facility] LABORATORY Specimen Anatomical Collection Method Collection Time Receive d Time (Source) Location / / Volume Laterality Blood specimen 08/28/2018 12:28 9 (specimen) PM EST 12:30 PM EST Resulting Agency Comment Spec In Lab Linda Rodriguez MD BLOOD BANK ORDERABLES Performing Organization Address City/[facility]/ZIP Code Phon e Number [address] (ABNORMAL) Differential, Automated (08/28/2018 12:27 PM EST) [facility] Method Time Signature Neutrophils % 59.4 % [facility] LABORATORY Neutr Abs (ANC) 6.98 (H) 1.70 - [facility] 6.10 [facility] x10(3)/[facility] L LABORATORY Lymphocytes % 30.8 % [facility] LABORATORY Lymphocytes Abs 3.6 (H) 0.9 - 3.2 [facility] x10(3)/[facility] LABORATORY Monocytes % 6.3 % [facility] LABORATORY Monocyte Abs 0.7 0.3 - 0.9 [facility] x10(3)/[facility] LABORATORY Eosinophils % 2.9 % [facility] LABORATORY Eosinophils Abs 0.3 0.0 - 0.4 [facility] x10(3)/[facility] LABORATORY Basophils % 0.3 % [facility] LABORATORY Basophils Abs 0.0 0.0 - 0.1 [facility] x10(3)/[facility] LABORATORY Immature Gran % 0.30 % [facility] LABORATORY Comment: Immature granulocytes(IG's)percentage an d absolute count will include metamyelocytes, myelocytes, and promyelo cytes. Blood smears from CBCs yielding IG's will be scanned manually for concor dance. If this scan disagrees with the automated IG or if promyelocytes are not ed, a manual differential will be performed. Irina Gran Abs 0.03 0.00 - 0.04 x10(3)/[facility] MAR Y [facility] LABORATORY Specimen Anatomical Collection Method Collection Time Receive d Time (Source) Location / / Volume Laterality Blood specimen 08/28/2018 12:27 9 (specimen) PM EST 12:53 PM EST Resulting Agency Comment Spec In Lab Linda Rodriguez MD HEMATOLOGY ORDERABLES Performing Organization Address City/State/[place] [address] (ABNORMAL) Hemogram (08/28/2018 12:27 PM EST) Analysis Performed At Patho logist Time Signature WBC 11.7 (H) 4.0 - 9.5 [facility] x10(3)/[facility] LABORATORY RBC 4.18 4.00 - [facility] 5.21 [facility] x10(6)/[facility] LABORATORY Hemoglobin 13.1 11.7 - [facility] 15.5 gm/dL [facility] LABORATORY Hematocrit 39.9 35.7 - [facility] 45.8 % [facility] LABORATORY MCV 95.5 (H) 82.6 - [facility] 94.4 [facility] LABORATORY MCH 31.3 27.1 - [place] 32.0 pg [facility] LABORATORY MCHC 32.8 31.7 - [facility] 35.0 gm/dL [facility] LABORAT[facility] Platelets 271 145 - 357 [facility] x10(3)/[facility] LABORATORY RDWSD 44.6 37.0 - [place] 46.0 [facility] LABORATORY RDWCV 12.7 11.5 - [place] 14.1 % [facility] LABORATORY MPV 10.4 7.6 - 12.9 [facility] LABORATORY nRBC % Auto 0.0 % [facility] LABORATORY nRBC Abs Auto 0.000 0.000 - [facility] 0.000 [facility] x10(3)/[facility] LABORATORY Specimen Anatomical Collection Method Collection Time Receive d Time (Source) Location / / Volume Laterality Blood specimen 08/28/2018 12:27 9 (specimen) PM EST 12:53 PM EST Resulting Agency Comment Spec In Lab Linda Rodriguez MD HEMATOLOGY ORDERABLES Performing Organization Address City/State/ZIP Code Phon e Number [place] [phone] (ABNORMAL) Basic Metabolic Panel (non-fasting) (08/28/2018 12:27 PM EST) P athologist Signature Glucose Lvl 139 65 - 199 [facility] mg/dL [facility]ORAT[facility] Comment: Diabetes: >=200 mg/dL plus symp toms BUN 10 8 - 18 mg/dL [facility] LABORATORY Creatinine 0.72 0.70 - 1.20 mg/dL [facility] LABORATORY Sodium 142 135 - 145 mmol/L [facility] LABORATORY Potassium 4.6 3.5 - 5.0 mmol/L [facility] LABORATORY Comment: Please note: ??Patients with WBC >100,00 0 may have falsely elevated Potassium levels. ??For accurate Potassium quantif ication in these patients send serum separator tube (gold top) for subsequent determinations. ??Contact the Clinical Chemistry Laboratory if there are any qu estions. Chloride 102 98 - 107 mmol/L [facility] LABORATORY CO2 27 22 - 31 mmol/L [facility] LABORATORY Anion Gap 13 5 - 15 mmol/L [facility] LABORATORY Calcium 11.9 (H) 8.5 - 10.5 mg/dL [facility] LABORATORY Estimated GFR 92 >=60 mL/min/1.73 m?? [facility] LABORATORY Comment: The eGFR was calculated using the CKD-EP I equation. As with all creatinine based estimates of kidney function, eGFR values calculated with the CKD-EPI equation are not accurate in patients wi th acute kidney failure, extremes of body mass or the acutely ill. [email or web address].com/[employer] eGFR 107 >=60 mL/min/1.73 m?? [facility] LABORATORY Comment: The eGFR was calculated using the CKD-EP I equation. As with all creatinine based estimates of kidney function, eGFR values calculated with the CKD-EPI equation are not accurate in patients wi th acute kidney failure, extremes of body mass or the acutely ill. http://Cloud.com/DHnkf Specimen Anatomical Collection Method Collection Time Receive d Time (Source) Location / / Volume Laterality Blood specimen 08/28/2018 12:27 9 (specimen) PM EST 12:53 PM EST Resulting Agency Comment Spec In Lab Crow Galvin Jr., MD CHEMISTRY ORDERABLES Performing Organization Address City/State/[place] [address] documented in this encounter Visit Diagnoses Diagnosis Nephrolithiasis Calculus of kidney documented in this encounter Care Teams Tire Buster Relationship Specialty Start Date End Date Ablert Zuleta MD PCP - General Family Medicine 01/17/17 10/26/21 [place] [address] documented as of this encounter
--- OUTSIDE RECORDS SUMMARY | 2022-02-08 01:59 | XMS_ITS | Encounter Summary ---
:1960 Author Organization [facility] Address [address] [place] [address] Care Team Providers Name Role Phone Albert Zuleta MD Primary Care Provider Encounter Details Date Type Department Care Team Description 08/22/2018 Orders Only Cardiology at [facility] Joni Drew Pre-operative cardiovascular examination (Primary Dx); [facility] MD Hermilo Congestive heart failure, unspecified HF chronicity, unspecified heart failure type; [facility] Abnormal nuclear stress [place] [address] Cardiology [phone] [place] [id number] Social History Tobacco Use Types Packs/Day Years [...] Care Team Description 03/15/2022 Office Visit Neurology SenRyann milian APRN [facility] DR [place]ISA [place], [place] [address] 03/23/2022 Appointment Radiology Hailey Mcclendon MD [facility] [address] Causey [place] [address] 03/23/2022 Laboratory Appointment Lab 03/23/2022 Office Visit Gastroenterology Hailey Mcclendon MD [facility] [address] [place] [address] 05/23/2022 Procedure visit Maxillofacial Surgery Corby Montes MD [facility] [address] [place] [address] documented as of this encounter Procedures Procedure Name Priority Date/Time Associated Diagnosis Comme nts CARDIAC CATHETERIZATION Routine 09/12/2018 12:14 Pre-operative Results for this PM EST cardiovascular procedure are in examination the results Congestive heart section. failure, unspecified HF chronicity, unspecified heart failure type Abnormal nuclear stress test documented in this encounter Results CARDIAC CATHETERIZATION (09/12/2018 12:14 PM EST) Specimen (Source) Anatomical Location Collection Method / Collectio n Time Received Time / Laterality Volume Narrative CARDIOMAC SYSTEM - 09/12/2018 12:[address] ?[facility] ? Cardiac Cathete rization/Intervention Report ? Patient Name: BLOSSOM PACHECO. ? Procedure Date: 09/12/2018 ? A #: [id number] ? Primary Physician: Clementine Fraire ? Case #: [id number] ? File Name: [id number] ? Catheterization Order Number: [id number] ? [facility] ? Final Report [place], [place] ? Patient Name: ? BLOSSOM L. GI LBERT ?ID#: ?[id number] ? : ?1960 ? Procedure Date: ? February 21, 20 19 ?Case #: ? [id number] ? Room: ? 5 ? Case Physician: ? Omar Estes ? Start: ?12:00 ? Admission: ??09/12/2018 ? Referring ? Albert Zuleta M.D. ? Discharge: ??09/12/2018 ? Physicians: ?Joni Drew M.D. ? Procedures: ?* Coronary Angiography ?* Left Heart Catheterization ? History ?BLOSSOM PACHECO is a 57 yea r old woman. She has hypertension. The ?patient's smoking status is Nev er. Prior to the initiation of this ?procedure, the patient was valencia gnated as ASA Class II. The [facility] clinical ?frailty scale is 2: Well. ? Diagnostic Tests: ?Medications Prior to Procedure: ? ASA. ? Indications for Diagnostic Cath: ?The priority of the diagnostic procedure was Elective. The indication for ?the laboratory animal caretaker visit is suspected CAD and other indication. Chest pain ?symptom assessment was: Asympto matic. ? Technique: ?A 6 SLFr sheath was inserted in the right radial artery utilizing the ?Seldinger technique. The left c oronary artery was injected utilizing a ?5Fr JL 3.5 catheter. A 5Fr JR 4 catheter was used to inject the right ?coronary artery. Left ventricul ar pressure was performed with a 5Fr JR 4 ?catheter. 3,000 units of hepari n were administered. A total of 100cc of ?Omnipaque were opened, 46cc of Omnipaque were administered and 54cc of ?Omnipaque were wasted. Radiatio n: Fluoro time was 1.8 minutes, dose area ?product was 51,127 mGYcm2 and a ir kerma was 907 mGY. See the case log for ?additional details. ?The patient received the follow ing medications prior to and during the ?procedure: ? Unfractionated Heparin. ? Hemodynamics: ?Left Heart Pressures ? Resting: ? Syst D iast ? EDP ?a ?v ? m ?Ao 98 ?64 ?76 ?LV 105 ? 15 ? Coronary Angiography: ?Dominance: Right ?Left Main ? There was mild diffuse ( <=25% stenosis) disease of the entire vessel ? segment of the left main artery. ??The left main was moderate in ? size. ?Left Anterior Descending ? There was mild diffuse ( <=25% stenosis) disease of the entire vessel ? segment of the left ante rior descending artery (LAD). ??The LAD was ? small. ??Distal flow was decreased. ? There was mild diffuse ( <=25% stenosis) disease of the entire vessel ? segment of the first liliana gonal branch (Diagonal 1) of the LAD. ??The ? Diagonal 1 was large. ?Left Circumflex ? There was mild diffuse ( <=25% stenosis) disease of the entire vessel ? segment of the left circ umflex artery (LCX). ??The LCX was moderate ? in size. ? There was mild diffuse ( <=25% stenosis) disease of the entire vessel ? segment of the first obt use marginal branch (OM1) of the LCX. ??The ? OM1 was moderate in size . ?Right Coronary Artery ? There was mild diffuse ( <=25% stenosis) disease of the entire vessel ? segment of the right cor onary artery (RCA). ??The RCA was large. ? Vascular Access: ?Vascular Access Management: ? Mechanical Compression o f the right radial artery access site was ? performed. ? Conclusions: ?* Nonobstructive coronary arter y disease ? Complications/Events: ?The patient had no complication s during these procedures. ? Comments: ?Pt referred for an abnormal str ess test. ??Coronary angiography showed ?minimal epicardial CAD with nor mal filling pressures. ??Recommend ?continued medical therapy for p rimary prevention of CVD. ?The attending physician was presen t for the entire procedure. ?Dr. Clementine Fraire M.D. was present d uring the moderate sedation intraservice ?time as documented by the sedation nurse. ??Case time = 00:04. ?Dr. Clementine Fraire M.D. performed the coronary angiography and left heart ?catheterization. ? Clementine Fraire M.D. ? Electronically Signed by: Jeff Estes ? Report Finalized: 09/12/2018 ??12:38 ? Report Last Ammended: 06/30/2019 ??09:38 ? Procedure Note Clementine Fraire MD - 06/30/2019Formatting o f this note might be different from the original. [facility] Cardiac Catheterization/Intervention Re port Patient Name: BLOSSOM PACHECO Procedure Date: 09/12/2018 A #: [id number] Primary Physician: Clementine Fraire Case #: [id number] File Name: [id number] Catheterization Order Number: [id number] [facility] Final Report [place], [place] Patient Name: BLOSSOM PACHECO ID#: [id number] : 1960 Procedure Date: September 12, 2018 Case # : [id number] Room: 5 Case Physician: Clementine Fraire M.D. Start: 12:00 Admission: 09/12/2018 Referring Albert Zuleta M.D. Discharge: Physicians: Joni Drew M.D. Procedures: * Coronary Angiography * Left Heart Catheterization History BLOSSOM PACHECO is a 57 year old wo man. She has hypertension. The patient's smoking status is Never. Prio r to the initiation of this procedure, the patient was designated a s ASA Class II. The [facility] clinical frailty scale is 2: Well. Diagnostic Tests: Medications Prior to Procedure: ASA. Indications for Diagnostic Cath: The priority of the diagnostic procedur e was Elective. The indication for the laboratory animal caretaker visit is suspected CAD and other indication. Chest pain symptom assessment was: Asymptomatic. Technique: A 6 SLFr sheath was inserted in the rig ht radial artery utilizing the Seldinger technique. The left coronary artery was injected utilizing a 5Fr JL 3.5 catheter. A 5Fr JR 4 cathete r was used to inject the right coronary artery. Left ventricular press ure was performed with a 5Fr JR 4 catheter. 3,000 units of heparin were a dministered. A total of 100cc of Omnipaque were opened, 46cc of Omnipaqu e were administered and 54cc of Omnipaque were wasted. Radiation: Fluor o time was 1.8 minutes, dose area product was 51,127 mGYcm2 and air kerma was 907 mGY. See the case log for additional details. The patient received the following medi cations prior to and during the procedure: Unfractionated Heparin. Hemodynamics: Left Heart Pressures Resting: Syst Diast EDP a v m Ao 98 64 76 LV 105 15 Coronary Angiography: Dominance: Right Left Main There was mild diffuse (<=25% stenosis) disease of the entire vessel segment of the left main artery. The le ft main was moderate in size. Left Anterior Descending There was mild diffuse (<=25% stenosis) disease of the entire vessel segment of the left anterior descending artery (LAD). The LAD was small. Distal flow was decreased. There was mild diffuse (<=25% stenosis) disease of the entire vessel segment of the first diagonal branch (D iagonal 1) of the LAD. The Diagonal 1 was large. Left Circumflex There was mild diffuse (<=25% stenosis) disease of the entire vessel segment of the left circumflex artery ( LCX). The LCX was moderate in size. There was mild diffuse (<=25% stenosis) disease of the entire vessel segment of the first obtuse marginal br anch (OM1) of the LCX. The OM1 was moderate in size. Right Coronary Artery There was mild diffuse (<=25% stenosis) disease of the entire vessel segment of the right coronary artery (R CA). The RCA was large. Vascular Access: Vascular Access Management: Mechanical Compression of the right rad ial artery access site was performed. Conclusions: * Nonobstructive coronary artery diseas e Complications/Events: The patient had no complications during these procedures. Comments: Pt referred for an abnormal stress test . Coronary angiography showed minimal epicardial CAD with normal fill ing pressures. Recommend continued medical therapy for primary p revention of CVD. The attending physician was present for the entire procedure. Dr. Clementine Fraire M.D. was present during the moderate sedation intraservice time as documented by the sedation nurs e. Case time = 00:04. Dr. Clementine Fraire M.D. performed the marylou nary angiography and left heart catheterization. Clementine Fraire M.D. Electronically Signed by: Jeff Estes Report Finalized: 09/12/2018 12:38 Report Last Ammended: 06/30/2019 09:38 Clementine Fraire MD CARDIAC CATH ORDERABLES Performing Organization Address City/State/ZIP Code Phon e Number CARDIOMAC SYSTEM EKG 12 Lead (08/28/2018 10:04 AM EST) Component Value Ref Range Test Analysis Performed Pathologis t Method Time At Signature Ventricular rate 79 BPM MUSE SYSTEM Atrial Rate 79 BPM MUSE SYSTEM P-R Interval 168 ms MUSE SYSTEM QRS Duration 138 ms MUSE SYSTEM Q-T Interval 408 ms MUSE SYSTEM QTC Calculated 467 ms MUSE SYSTEM (Bezet) Calculated P [place] 30 degrees MUSE SYSTEM Calculated R [place] -13 degrees MUSE SYSTEM Calculated T [place] 91 degrees MUSE SYSTEM INTERPRETATION Normal sinus rhythm MUSE SYSTEM Left bundle branch block Abnormal ECG When compared with ECG of 09-JUL-2018 18:18, No significant change was found I personally reviewed the tracing and edited the fellows int erpretation Confirmed by fellow MD Trey, Kentrell ([id number]) on 08/28/2018 1 0:19:16 AM Confirmed by MD Dali, Tomas ([id number]) on 08/28/2018 4:32:04 PM Specimen Anatomical Collection Method Collection Time Receive d Time (Source) Location / / Volume Laterality 08/28/2018 10:04 08/28/2018 4:32 AM EST PM EST Joni Drew MD ECG ORDERABLES Performing Organization Address City/State/ZIP Code Phon e Number MUSE SYSTEM documented in this encounter Visit Diagnoses Diagnosis Pre-operative cardiovascular examination - Primary Congestive heart failure, unspecified HF chronicity, unspecified heart failure type Abnormal nuclear stress test Other nonspecific abnormal cardiovascula r system function study Pre-operative cardiovascular examination Congestive heart failure, unspecified HF chronicity, unspecified heart failure type Abnormal nuclear stress test Other nonspecific abnormal cardiovascula r system function study documented in this encounter Care Teams Wall Man Relationship Specialty Start Date End Date Albert Zuleta MD PCP - General Family Medicine 01/17/17 10/26/21 [place] [address] documented as of this encounter
--- OUTSIDE RECORDS SUMMARY | 2022-02-08 01:59 | XMS_ITS | Encounter Summary ---
:1960 Author Organization [facility] Address [facility] [place] [address] Care Team Providers Name Role Phone Albert Zuleta MD Primary Care Provider Reason for Visit Diagnostic Test (Routine) - Closed Specialty Diagnoses / Procedures Referred By Contact Refer red To Contact Radiology Diagnoses Cardiomyopathy, unspecified type Pre-operative cardiovascular examination Joni Drew MD [facility] Rad Nuclear Med Procedures NM Pharmacologic Stress Myocardial Perfusion [facility] [place] [address] [place] [address] Fax: Referral ID Status Reason Start Date Expiration Date Visits V isits Requested Authorized [id number] Closed Specialty 08/28/2018 08/28/2019 4 4 Service Requested Encounter Details Date Type Department Care Team Description 08/29/2018 Hospital Encounter Nuclear Medicine at [facility]ik Drew Mary Hitchcock [place] [address] Cardiology [phone] [place], [place] [address] (Wo rk) Social History Tobacco [...] 03/15/2022 Office Visit Neurology Ryann Barfield APRN [facility] [address] [place], [place] [address] 03/23/2022 Appointment Radiology Hailey Mcclendon MD [facility] [place] [address] 03/23/2022 Laboratory Appointment Lab 03/23/2022 Office Visit Gastroenterology Hailey Mcclendon MD [facility] [place] [address] 05/23/2022 Procedure visit Maxillofacial Surgery Corby Montes MD [facility] [address] [place] [address] documented as of this encounter Procedures Procedure Name Priority Date/Time Associated Diagnosis Comme nts NM PHARMACOLOGIC Routine 08/29/2018 10:19 Cardiomyopathy, Resu lts for this STRESS AND REST AM EST unspecified type procedure are in MYOCARDIAL PERFUSION Pre-operative [facility] cardiovascular section. examination documented in this encounter Visit Diagnoses Not on filedocumented in this encounter Administered Medications Inactive Administered Medications - up to 3 most recent administrations Medication Order MAR Action Action Date Dose Rate Site regadenoson (LEXISCAN) injection Given 08/29/2018 10:15 AM EST 0 .4 mg 0.4 mg 0.4 mg, Intravenous, ONCE, 1 dose, On Arin 08/29/18 at 1045, Routine technetium (Tc-99m) sestamibi injection Given 08/29/2018 10:15 A M EST 24.2 mCi 24.2 mCi 24.2 mCi, Intravenous, ONCE PRN, 1 dose, Starting on Arin 08/29/18 at 1019, Until Arin 08/29/18 at 1015, Per Protocol, Routine documented in this encounter Care Teams Coater Relationship Specialty Start Date End Date Albert Zuleta MD PCP - General Family Medicine 01/17/17 10/26/21 [address] [place] [address] documented as of this encounter
--- OUTSIDE RECORDS SUMMARY | 2022-02-08 01:59 | XMS_ITS | Encounter Summary ---
:1960 Author Organization [facility] Address [facility] [place] [address] Care Team Providers Name Role Phone Albert Zuleta MD Primary Care Provider Encounter Details Date Type Department Care Team Description 08/28/2018 Anesthesia Event Urology at [facility] Gareth Dobbs MD [facility] [place] [address] ANESTHESIOLOGY DEPT [phone] [place], [place] [address] (Wo rk) Anesthesia Record Procedure Summary Procedure Name Responsible Anesthesiologist Anesthesia Start Ti me Anesthesia Stop Time NEW PATIENT Events No events on file. No medications [...] Barfield APRN [facility] [address] [place], [place] [address] 03/23/2022 Appointment Radiology Hailey Mcclendon MD [facility] [address] [place] [address] 03/23/2022 Laboratory Appointment Lab 03/23/2022 Office Visit Gastroenterology Hailey Mcclendon MD [facility] [address] [place] [address] 05/23/2022 Procedure visit Maxillofacial Surgery Corby Montes MD [facility] [address] [place] [address] documented as of this encounter Visit Diagnoses Not on filedocumented in this encounter Care Teams Lean Manager Relationship Specialty Start Date End Date Albert Zuleta MD PCP - General Family Medicine 01/17/17 10/26/21 [address] [place] [address] documented as of this encounter
--- OUTSIDE RECORDS SUMMARY | 2022-02-08 01:59 | XMS_ITS | Encounter Summary ---
:1960 Author Organization [facility] [place] [address] Care Team Providers Name Role Phone Albert Zuleta MD Primary Care Provider Encounter Details Date Type Department Care Team Description 08/28/2018 Orders Only Urology Linda Rodriguez, Nephrolithiasis [facility] [place] [address] [facility] [phone] UROLOGY DEPT [place], [place] [address] (Wo rk) Social History Tobacco [...] Description 03/15/2022 Office Visit Neurology Ryann Barfield, CHEMICAL PROCESSING SUPERVISOR [facility] [address] [place], [place] [address] 03/23/2022 Appointment Radiology Hailey Mcclendon MD [facility] [address] [place], [place] [address] 03/23/2022 Laboratory Appointment Lab 03/23/2022 Office Visit Gastroenterology Hailey Mcclendon MD [facility] [address] [place] [address] 05/23/2022 Procedure visit Maxillofacial Surgery Corby Montes MD [facility] [address] [place], [place] [address] documented as of this encounter Results PTH (11/28/2018 1:04 PM EDT) athologist Signature PTH 39 15 - 65 [facility] pg/mL [facility] Specimen Anatomical Collection Method Collection Time Receive d Time (Source) Location / / Volume Laterality Blood specimen 11/28/2018 1:04 PM 019 1:11 (specimen) EDT PM EDT Resulting Agency Comment Spec In Lab Crow Galvin Jr., MD CHEMISTRY ORDERABLES Performing Organization Address City/State/[place] [address] documented in this encounter Visit Diagnoses Diagnosis Nephrolithiasis Calculus of kidney documented in this encounter Care Teams Motor Vehicle Lecturer Relationship Specialty Start Date End Date Albert Zuleta MD PCP - General Family Medicine 01/17/17 10/26/21 [place] [address] documented as of this encounter
--- OUTSIDE RECORDS SUMMARY | 2022-02-08 01:59 | XMS_ITS | Encounter Summary ---
:1960 [address] [facility] [place] [address] Care Team Providers Name Role Phone Albert Zuleta MD Primary Care Provider Reason for Referral Diagnostic Test (Routine) - Closed Specialty Diagnoses / Procedures Referred By Contact Refer red To Contact Radiology Diagnoses Cardiomyopathy, unspecified type Pre-operative cardiovascular examination Joni Drew MD [facility] Rad Nuclear Med Procedures NM Pharmacologic Stress Myocardial Perfusion [place] [address] [place] [address] Fax: Referral ID Status Reason Start Date Expiration Date Visits V isits Requested Authorized [id number] Closed Specialty 08/28/2018 08/28/2019 4 4 Service Requested Reason for Visit Diagnostic Test (Routine) - Closed Specialty Diagnoses / Procedures Referred By Contact Refer red To Contact Radiology Diagnoses Cardiomyopathy, unspecified type Pre-operative cardiovascular examination Joni Drew MD [facility] Rad Nuclear Med Procedures NM Pharmacologic Stress Myocardial Perfusion [facility] [place] [address] [place] [address] Fax: Referral ID Status Reason Start Date Expiration Date Visits V isits Requested Authorized [id number] Closed Specialty 08/28/2018 08/28/2019 4 4 Service Requested Encounter Details Date Type Department Care Team Description 08/29/2018 Hospital Encounter Nuclear Medicine at [facility] Drew rdiomyopathy, unspecified type; Hailey Akhtar MD Pre-operative cardiovascular examination [facility] [place] Cardiology [address] [place], [place] [phone] [facility] Social History Tobacco Use [...] Description 03/15/2022 Office Visit Neurology Ryann Barfield, GAS CHECK PAD MAKER [facility] [address], [place] [address] 03/23/2022 Appointment Radiology Hailey Mcclendon MD [facility] [place] [address] 03/23/2022 Laboratory Appointment Lab 03/23/2022 Office Visit Gastroenterology Hailey Mcclendon MD [facility] [place] [address] 05/23/2022 Procedure visit Maxillofacial Surgery Corby Montes MD [facility] [place] [address] documented as of this encounter Procedures Procedure Name Priority Date/Time Associated Diagnosis Comme nts NM PHARMACOLOGIC Routine 08/29/2018 10:19 Cardiomyopathy, Resu lts for this STRESS AND REST AM EST unspecified type procedure are in MYOCARDIAL PERFUSION Pre-operative [facility] cardiovascular section. examination documented in this encounter Results NM Pharmacologic Stress Myocardial Perfusion (08/29/2018 10:19 [...] examination documented in this encounter Care Teams Embossing Toolsetter Relationship Specialty Start Date End Date Albert Zuleta MD PCP - General Family Medicine 01/17/17 10/26/21 [address] [place] [address] documented as of this encounter
--- OUTSIDE RECORDS SUMMARY | 2022-02-08 01:59 | XMS_ITS | Encounter Summary ---
:1960 Author Organization [facility] Address [facility] [address] Care Team Providers Name Role Phone Albert Zuleta MD Primary Care Provider Reason for Visit Diagnostic Test (Routine) - Closed Specialty Diagnoses / Procedures Referred By Contact Refer red To Contact Radiology Diagnoses Cardiomyopathy, unspecified type Pre-operative cardiovascular examination Joni Drew MD [facility] Rad Nuclear Med Procedures NM Pharmacologic Stress Myocardial Perfusion [facility] [place] [address] [place] [address] Fax: Referral ID Status Reason Start Date Expiration Date Visits V isits Requested Authorized [id number] Closed Specialty 08/28/2018 08/28/2019 4 4 Service Requested Encounter Details Date Type Department Care Team Description 08/29/2018 Hospital Encounter Nuclear Medicine at [facility] Drew Mary Hitchcock MD [facility] [place] [address] Cardiology [phone] [place], [place] [address] (Wo rk) Social History Tobacco [...] APRN [facility] [address] [place], [place] [address] 03/23/2022 Appointment Radiology Hailey Mcclendon MD [facility] [place] [address] 03/23/2022 Laboratory Appointment Lab 03/23/2022 Office Visit Gastroenterology Hailey Mcclendon MD [facility] [place] [address] 05/23/2022 Procedure visit Maxillofacial Surgery Corby Montes MD [facility] [address] [place] [address] documented as of this encounter Procedures Procedure Name Priority Date/Time Associated Diagnosis Comme nts NM PHARMACOLOGIC Routine 08/29/2018 10:19 Cardiomyopathy, Resu lts for this STRESS AND REST AM EST unspecified type procedure are in MYOCARDIAL PERFUSION Pre-operative [facility] cardiovascular section. examination documented in this encounter Visit Diagnoses Not on filedocumented in this encounter Administered Medications Inactive Administered Medications - up to 3 most recent administrations Medication Order MAR Action Action Date Dose Rate Site technetium (Tc-99m) sestamibi Given 08/29/2018 8:11 AM EST 8.5 m Ci Left Arm injection 8.5 mCi 8.5 mCi, Intravenous, ONCE PRN, 1 dose, Starting on Arin 08/29/18 at 0811, Until Arin 08/29/18 at 0811, Per Protocol, Routine documented in this encounter Care Teams Flavoring Maker Relationship Specialty Start Date End Date Albert Zuleta MD PCP - General Family Medicine 01/17/17 10/26/21 [address] [place] [address] documented as of this encounter
--- OUTSIDE RECORDS SUMMARY | 2022-02-08 01:59 | XMS_ITS | Encounter Summary ---
:1960 Author Organization [place] [address] Care Team Providers Name Role Phone Albert Zuleta MD Primary Care Provider Encounter Details Date Type Department Care Team Description 08/28/2018 Office Visit Same Day [facility] [place] [address] Social History Tobacco Use Types Packs/Day [...] 03/15/2022 Office Visit Neurology Ryann Barfield APRN [facility] [address] [place] [address] 03/23/2022 Appointment Radiology Hailey Mcclendon MD [facility] [place] [address] 03/23/2022 Laboratory Appointment Lab 03/23/2022 Office Visit Gastroenterology Hailey Mcclendon MD [facility] [place] [address] 05/23/2022 Procedure visit Maxillofacial Surgery Corby Montes MD [facility] [place] [address] documented as of this encounter Visit Diagnoses Not on filedocumented in this encounter Care Teams Supervisor Laundry Relationship Specialty Start Date End Date Albert Zuleta MD PCP - General Family Medicine 01/17/17 10/26/21 [address] [place] [address] documented as of this encounter
--- OUTSIDE RECORDS SUMMARY | 2022-02-08 01:59 | XMS_ITS | Encounter Summary ---
:1960 Author Organization [facility] [place] [address] Care Team Providers Name Role Phone Albert Zuleta MD Primary Care Provider Reason for Referral Consultation (Routine) - Closed Specialty Diagnoses / Procedures Referred By Contact Refer red To Contact Cardiology Diagnoses history of CHF unclear etiology for eval prior to elective abdominal surgery/hernia repair Ace Henry MD [facility] 4a [facility] D R [facility] [place] [address] [place] [address] Referral ID Status Reason Start Date Expiration Date Visits V isits Requested Authorized [id number] Closed Consult, 08/19/2018 08/19/2019 1 1 Test & Treat Reason for Visit Reason Comments Hernia Encounter Details Date Type Department Care Team Description 08/19/2018 Office Visit General Surgery at Ace Henry MD Incisional hernia, [facility] without obstruction or [facility] DR addie Ragland GENERAL SURGERY [place], [place] [phone] Social History Tobacco Use Types Packs/Day Years Used Date Former Smoker Cigarettes Quit: 01/01/20 17 Smokeless Tobacco: Never Used Alcohol Use [...] Sign Reading Time Taken Comments Blood Pressure 140/61 08/19/2018 1:10 PM EST Pulse 75 08/19/2018 1:10 PM EST Temperature 36.7 ??C (98.1 ??F) 08/19/2018 1:10 PM EST Respiratory Rate 16 08/19/2018 1:10 PM EST Oxygen Saturation 99% 08/19/2018 1:10 PM EST Inhaled Oxygen Concentration - - Weight 138.8 kg (306 lb) 08/19/2018 1:10 PM EST Height - - Body Mass Index 49.39 07/22/2018 5:01 PM EST documented in this encounter Progress Notes Ace Henry MD - 08/19/2018 1:30 PM EST Blossom Samayoa is a 57 y.o. female who presents to my clinic today referred by my colleague Dr. Efra Lockhart for consideration of elective hernia repair. Ms. Samayoa reports that she was in her usual state of health until around 07/10 at which time she first underwent stent placement for a nearlyobstructing kidney stone. She then shortly thereafter developed transient incarceration of an incisional hernia which has been present at least since 1992 by patient report. She state that she then didrelatively well until 07/22 at which time she again had transient obstruction and pain leading to admission on the ACS service here at [facility] until 07/24/2018 at which time she was discharged to home. She was thus treated non-operatively during that admission. She has done well since discharge home without chronic changes in bowel habits, nausea/vomiting. Past Medical History Congestive Heart Failure Sarcoidosis Diabetes Mellitus Past Surgical History: Procedure Laterality Date ??? PRO CYSTOSCOPY, INSERT URETERAL STENT Right 07/10/2018 CYSTO, STENT PLACEMENT (WRVU 2.82) performed by Viky Sears MD at [facility] MAIN OR ??? PRO CYSTOURETHROSCOPY, URETER CATHETER Right 07/10/2018 CYSTO, RETROGRADE, URETEROPYELOGRAPHY (WRVU 2.37) performed by Viky Sears MD at [facility] MAIN OR Medications 08/19/18 1328 Medication Sig Taking? atorvastatin (LIPITOR) 10 mg Tablet Take 10 mg by mouth daily. Yes dulaglutide (TRULICITY SUBQ) Inject subcutaneously once a week. Yes HYDROcodone-acetaminophen (NORCO) 5-325 mg Tablet Take 1 tablet by mouth 2 times daily. Yes acetaminophen (TYLENOL) 325 mg Tablet Take 2 tablets by mouth every 6 hours. Yes aspirin 81 mg Tablet, Chewable Take 81 mg by mouth daily. Yes levalbuterol (XOPENEX HFA) 45 mcg/actuation HFA Aerosol Inhaler INHALE TWO PUFFS BY MOUTH EVERY 4 TO6 HOURS NEEDED Yes INCRUSE ELLIPTA 62.5 mcg/actuation Disk with Device INHALE ONE PUFF BY MOUTH EVERY DAY Yes glipiZIDE-metFORMIN (METAGLIP) 5-500 mg Tablet TAKE TWO TABLETS BY MOUTH TWICE A DAY Yes loratadine (CLARITIN) 10 mg Tablet TAKE ONE TABLET BY MOUTH EVERY DAY NEEDED Yes JANUVIA 100 mg Tablet TAKE ONE TABLET BY MOUTH EVERY DAY Yes gabapentin (NEURONTIN) 600 mg Tablet TAKE ONE TABLET BY MOUTH THREE TIMES A DAY Yes spironolactone (ALDACTONE) 25 mg Tablet TAKE ONE TABLET BY MOUTH EVERY DAY Yes carvedilol (COREG) 3.125 mg Tablet TAKE ONE TABLET BY MOUTH TWICE A DAY Yes lisinopril (PRINIVIL;ZESTRIL) 5 mg Tablet TAKE ONE TABLET BY MOUTH DAILY Yes magnesium oxide (MAG-OX) 400 mg (241.3 mg magnesium) Tablet TAKE ONE TABLET BY MOUTH TWICE A DAY Yes multivitamin (THERAGRAN) tablet Yes polyethylene glycol (MIRALAX) 17 gram Powder in Packet Take 17 g by mouth daily. senna-docusate (PERICOLACE) 8.6-50 mg Tablet Take 1 tablet by mouth daily. magnesium hydroxide (MILK OF MAGNESIA) 2,400 mg/10 mL Suspension Take 15 mLs by mouth daily as needed for Constipation. Allergies Allergen Reactions ??? Augmentin [Amoxicillin-Pot Clavulanate] Hives and Itching ??? Cis Free Text Allergy Ketamine. CIS - hallucinations ??? Erythromycin Hives and Itching ??? Macrobid [Nitrofurantoin Monohyd/M-Cryst] Causes depression ??? Sulfa (Sulfonamide Antibiotics) Hives Social History Tobacco Use ??? Smoking status: Former Smoker Types: Cigarettes Last attempt to quit: 07/23/2016 Years since quittin.0 ??? Smokeless tobacco: Never Used Substance Use Topics ??? Alcohol use: No Frequency: Never Comment: 3 X a year ??? 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 Cancer Father ??? Cancer Sister ROS:A comprehensive review of systems was negative. On physical examination today, BP 140/61 (BP Location (NBP): Right arm, Patient Position: Sitting) Pulse 75 Temp 36.7 ??C (98.1 ??F) Resp 16 Wt (!) 138.8 kg (306 lb) LMP (LMP Unknown) SpO2 99% BMI 49.39 kg/m?? Body mass index is 49.39 kg/m??. General appearance: alert, appears stated age and cooperative Head: Normocephalic, without obvious abnormality, atraumatic Neck: no adenopathy, supple, symmetrical, trachea midline and thyroid not enlarged, symmetric, no tenderness/mass/nodules Lungs: clear to auscultation bilaterally Heart: regular rate and rhythm, S1, S2 normal, no murmur, click, rub or gallop Abdomen: soft, NT/ND, obese, suggestion of infraumbilical hernia of unclear dimensions, non-tender, incompletely reducible Extremities: extremities normal, atraumatic, no cyanosis or edema Skin: Skin color, texture, turgor normal. No rashes or lesions Lymph nodes: Cervical, supraclavicular, and axillary nodes normal. Ancillary Data: CT scan images reviewed and demonstrate hernia present 06/07/2018, 07/09/2018, 07/22/2018 with smallbowel caliber change associated with hernia present in the most recent images. Assessment and Plan: Blossom Samayoa is a 57 y.o. female. with incisional hernia long-standing (since 1992 by patient report) with transient incarceration reducible in ER 07/10/2018 and more recently 07/22/2018 transient bowel obstruction treated non-operatively. We discussed that while I feel her hernia therefore warrants elective repair, we first would want to accomplish the followin) nephrostomy and/or kidney stone surgery successfully completed, 2) optimization of diabetes (most recent HGB A1C by patient report >8.5) to HGBA1C <7.5, 3) weight loss, 4) cardiology evaluation and clearance given history of ?CHF. Ms. Samayoa is in agreement with these evaluations/interventions with lik monserrat elective surgery to follow. We will arrange office re-evaluation in the near future. documented in this encounter Plan of Treatment Upcoming Encounters Date Type Specialty Care Team Description 03/15/2022 Office Visit Neurology Ryann Barfield APRN [facility] NEUROLOGY [place], [place] [address] 03/23/2022 Appointment Radiology Hailey Mcclendon MD [facility] [place] [address] 03/23/2022 Laboratory Appointment Lab 03/23/2022 Office Visit Gastroenterology Hailey Mcclendon MD [facility] [place] [address] 05/23/2022 Procedure visit Maxillofacial Surgery Corby Montes MD [facility] [address] [place] [address] Scheduled Referrals Name Type Priority Associated Diagnoses Order S chedule Referral to Outpatient Referral Routine Incisional hernia, Or dered: Cardiology without obstruction 08/19/19 19 or gangrene documented as of this encounter Visit Diagnoses Diagnosis Incisional hernia, without obstruction o r gangrene Incisional hernia without mention of obs truction or gangrene documented in this encounter Care Teams Quality Assurance Clerk Relationship Specialty Start Date End Date Albert Zuleta MD PCP - General Family Medicine 01/17/17 10/26/21 [address] [place] [address] documented as of this encounter
--- OUTSIDE RECORDS SUMMARY | 2022-02-08 01:59 | XMS_ITS | Encounter Summary ---
:1960 Author Organization [facility] Address [facility] [place] [address] Care Team Providers Name Role Phone Albert Zuleta MD Primary Care Provider Encounter Details Date Type Department Care Team Description 08/23/2018 Telephone Urology Luis A Mantilla MD [facility] [place] [address] UROLOGY DEPT [phone] [place], [place] [address] (Wo rk) Social History Tobacco [...] this encounter Miscellaneous Notes Telephone Encounter - Luis A Arroyo MD - 08/23/2018 1:03 PM EST Blossom Cory Samayoa called and wanted to report some symptoms to Dr. Galvin. She wants us to know that she has 'pressure' and had karlee colored urine this morning. She has no pain, no fevers, and no nausea/vomiting. She told me that she didn't actually want me to call her back, she was just reporting this to Dr. Galvin. documented in this encounter Plan of Treatment Upcoming Encounters Date Type Specialty Care Team Description 03/15/2022 Office Visit Neurology Ryann Barfield, TECHNOLOGY SALES CONSULTANT [facility] [address] [place], [place] [address] 03/23/2022 Appointment Radiology Hailey Mcclendon MD [facility] [address] [place] [address] 03/23/2022 Laboratory Appointment Lab 03/23/2022 Office Visit Gastroenterology Hailey Mcclendon MD [facility] [address] [place] [address] 05/23/2022 Procedure visit Maxillofacial Surgery Corby Montes MD [facility] [address] [place] [address] documented as of this encounter Visit Diagnoses Not on filedocumented in this encounter Care Teams Bulk Truck Driver Relationship Specialty Start Date End Date Albert Zuleta MD PCP - General Family Medicine 01/17/17 10/26/21 [place] [address] documented as of this encounter
--- OUTSIDE RECORDS SUMMARY | 2022-02-08 01:59 | XMS_ITS | Encounter Summary ---
:1960 Author Organization [facility] [place] [address] Care Team Providers Name Role Phone Albert Zuleta MD Primary Care Provider Encounter Details Date Type Department Care Team Description 08/28/2018 Telephone Urology Linda Rodriguez MD [facility] ([facility] [place] [address] UROLOGY DEPT [phone] [place], [place] [address] (Wo rk) Social History Tobacco [...] Telephone Encounter - Linda Rodriguez MD - 08/28/2018 3:31 PM EST TELEPHONE NOTE Date of call: 08/28/18 Time of call: 1530 I called Blossom Samayoa to tell her that her calcium was elevated on the BMP today and that we would like to have a PTH level on her. She did not answer, but I left a VM. Unfortunately, the PTH cannot be added on to the labs, but I told her there is no urgency to have the PTH drawn prior to surgery. I suggested that we draw a PTH when she is in-house next week for her PCNL. documented in this encounter Plan of Treatment Upcoming Encounters Date Type Specialty Care Team Description 03/15/2022 Office Visit Neurology Ryann Barfield, [facility] [address] [place], [place] [address] 03/23/2022 Appointment Radiology Hailey Mcclendon MD [facility] [address] [place] [address] 03/23/2022 Laboratory Appointment Lab 03/23/2022 Office Visit Gastroenterology Hailey Mcclendon MD [facility] [address] [place] [address] 05/23/2022 Procedure visit Maxillofacial Surgery Corby Montes MD [facility] [address] [place] [address] documented as of this encounter Visit Diagnoses Not on filedocumented in this encounter Care Teams Factory Process Workers Relationship Specialty Start Date End Date Albert Zuleta MD PCP - General Family Medicine 01/17/17 10/26/[address] [place] [address] documented as of this encounter
--- OUTSIDE RECORDS SUMMARY | 2022-02-08 02:00 | XMS_ITS | Encounter Summary ---
:1960 Author Organization [place] [address] Care Team Providers Name Role Phone Albert Zuleta MD Primary Care Provider Reason for Visit Reason Comments Thyroid Nodule Consultation (Routine) - Specialty Diagnoses / Procedures Referred By Contact Refer red To Contact Endocrinology Diagnoses left thyroid nodule; hypercalcemia Albert Zuleta MD [facility] Endocrinology [address] [facility] [place] [phone] Referral ID Status Reason Start Date Expiration Date Visits V isits Requested Authorized [id number] Consult, 04/14/2018 04/14/2019 6 6 Test & Treat Connection Center Encounter Details Date Type Department Care Team Description 06/26/2018 Office Visit Endocrinology at [facility] Kem Escalante DO Abnormal finding [place] [facility] [place] [address] ENDOCRINOLOGY [phone] [place] [address] Social History Tobacco Use Types Packs/Day Years Used Date Former Smoker Quit: 07/23/19 17 Smokeless Tobacco: Never Used Alcohol Use Standard Drinks/Week Comments Yes 0 (1 standard drink = 0.6 oz [...] Sign Reading Time Taken Comments Blood Pressure 135/59 06/26/2018 8:02 AM EST Pulse 74 06/26/2018 8:02 AM EST Temperature - - Respiratory Rate - - Oxygen Saturation - - Inhaled Oxygen Concentration - - Weight 142.9 kg (315 lb) 06/26/2018 8:02 AM EST Height 167.6 cm (5' 6) 06/26/2018 8:02 AM EST Body Mass Index 50.84 06/26/2018 8:02 AM EST documented in this encounter Progress Notes Kem Kern, DO - 06/26/2018 8:00 AM EST Endocrinology Consult Patient Name: Blossom Samayoa Date of : 1960 PCP: Albert Zuleta MD HISTORY OF PRESENT ILLNESS: Blossom Samayoa is a very pleasant 57 y.o. female who presents for evaluation of a thyroid nodule. She states the nodule was discovered during an inpatient hospitalization when she was newly diagnosed with congestive heart failure approximately 2 years ago. She states she was not is fully satisfiedwith the idea of watching the thyroid nodule and therefore requested a second opinion. Her past medical history is significant for hypercalcemia (attributed to sarcoidosis), poorly controlled type 2 diabetes (A1c 8.4% per patient's report), and obesity. Sarcoidosis was diagnosed in 1990. She states that for the past 6 years she has noticed cold intolerance. She denies constipation, voice changes, dysphagia. She denies hair or skin changes. She reports that her eyebrows failed to grow as when she was younger she would pluck them excessively. REVIEW OF SYSTEMS: as per HPI, all other systems reviewed and negative Patient Active Problem List Diagnosis Code ??? CIS - Cardiomyopathy ??? CIS - Chest pain ??? CIS - Depression ??? CIS - Diabetes Mellitus ??? CIS - Entered not Verified ??? CIS - Herpes simplex ??? CIS - LBBB ??? CIS - Nephrolithiasis ??? CIS - Obesity ??? CIS - OCD ??? CIS - Osteoma, R ear canal ??? CIS - Sarcoidosis Allergies Allergen Reactions ??? Augmentin [Amoxicillin-Pot Clavulanate] Hives and Itching ??? Cis Free Text Allergy Ketamine. CIS - hallucinations ??? Erythromycin Hives and Itching ??? Macrobid [Nitrofurantoin Monohyd/M-Cryst] Causes depression ??? Sulfa (Sulfonamide Antibiotics) Hives Current Outpatient Medications on File Prior to Visit Medication Sig Dispense Refill ??? levalbuterol (XOPENEX HFA) 45 mcg/actuation HFA [...] MOUTH THREE TIMES A DAY 1 ??? furosemide (LASIX) 40 mg Tablet TAKE ONE TABLET BY MOUTH EVERY DAY 3 ??? spironolactone (ALDACTONE) 25 mg Tablet TAKE ONE TABLET BY MOUTH EVERY DAY 3 ??? carvedilol (COREG) 3.125 mg Tablet TAKE ONE TABLET BY MOUTH TWICE A DAY 3 ??? lisinopril (PRINIVIL;ZESTRIL) 5 mg Tablet TAKE ONE TABLET BY MOUTH DAILY 3 ??? magnesium oxide (MAG-OX) 400 mg (241.3 mg magnesium) Tablet TAKE ONE TABLET BY MOUTH TWICE A DAY1 ??? potassium chloride (MICRO-K) 10 mEq Capsule, Sustained Release TAKE ONE CAPSULE BY MOUTH EVERY DAY 3 ??? hydroCODone-acetaminophen (VICODIN) 5-500 mg per tablet ??? aspirin 325 mg tablet ??? multivitamin (THERAGRAN) tablet ??? [DISCONTINUED] lisinopril (PRINIVIL;ZESTRIL) 40 mg tablet ??? [DISCONTINUED] FOLIC ACID ORAL (Patient not taking: No sig reported) ??? [DISCONTINUED] CALCIUM CARBONATE/VITAMIN D3 (CALCIUM+D ORAL) (Patient not taking: No sig reported) No current facility-administered medications on file prior to visit. Social History Socioeconomic History ??? Marital status: Spouse name: None ??? Number of children: None ??? Years of education: None ??? Highest education level: None Social Needs ??? Financial resource strain: None ??? Food insecurity - worry: None ??? Food insecurity - inability: None ??? Transportation needs - medical: None ??? Transportation needs - non-medical: None Occupational History ??? None Tobacco Use ??? Smoking status: Former Smoker Last attempt to quit: 07/23/2016 Years since quittin.9 ??? Smokeless tobacco: Never Used Substance and Sexual Activity ??? Alcohol use: Yes Comment: 3 X a year ??? Drug use: No ??? Sexual activity: None Other Topics Concern ??? None Social History Narrative ??? None Family History Problem Relation Age of Onset ??? Cancer Father ??? Cancer Sister Family History: 2 sisters with an unknown type of thyroid cancer PHYSICAL EXAM: BP 135/59 Pulse 74 Ht 167.6 cm (5' 6) Wt (!) 142.9 kg (315 lb) BMI 50.84 kg/m?? GENERAL: Well nourished, well hydrated, in no distress. SKIN: normal in texture and temperature, no violaceous striae. EYES: no thyroid eye signs NECK: supple, no palpable nodule or goiter, no bruit, no tenderness, no lymphadenopathy CVS: S1 S2 distant, rhythm regular RS: clear breath sounds bilateral EXTREMITIES: No clubbing, no edema, no cyanosis, normal nails. Neuro: DTR 1+/4 at the knee bilaterally Impression: 57-year-old woman with a reported history of a small thyroid nodule that was not observed on her ultrasound today. This is not an uncommon scenario as occasionally thyroid nodules are reported when in fact they just represent normal thyroid tissue. Due to the embryologic development the thyroid gland can have the appearance of septations between anterior and posterior aspects of the thyroid lobes, and these areas can be mistakenly reported as nodules. When there is a prominent septum and extends posterior and extreme cases it is referred to as the tubercle of Zuckerkandl. In regards to Ms. 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 Recommendations: - No further thyroid ultrasonography warranted We have reviewed our plan outlined above with the patient, and patient verbalized understanding. Allquestions were answered and most of the time was spent on counseling. Thank you for this consult, please do not hesitate to contact me with any questions. Kem Kern DO, MS Paper Bag Makerpredator control trapper Department of Medicine Section of Endocrinology [facility] cc: Albert Zuleta MD eKm Kern DO - 06/26/2018 8:00 AM EST THYROID ULTRASOUND: Indication: Thyroid nodule reported on prior study Real time images of the thyroid gland were obtained. All measurements are given as Longitudinal x Anterior-Posterior (A-P) x Transverse Right Lobe: The right lobe measures: 1.3 AP x 1.7 cm transverse with normal echotexture. There are no nodules in the right thyroid lobe. Left Lobe: The left lobe measures: 1.8 AP x 2.1 transverse cm and is of normal echotexture. There are no nodules within the left lobe. Isthmus : 4 mm (A-P dimension) IMPRESSION: -No thyroid nodules Recommendation: No further follow-up recommended Kem Kern DO, MS Paper Bag Makerpredator control trapper Department of Medicine Section of Endocrinology [facility] documented in this encounter Plan of Treatment Upcoming Encounters Date Type Specialty Care Team Description 03/15/2022 Office Visit Neurology Ryann Barfield APRN [facility] [place] [address] 03/23/2022 Appointment Radiology Hailey Mcclendon MD [facility] [place] [address] 03/23/2022 Laboratory Appointment Lab 03/23/2022 Office Visit Gastroenterology Hailey Mcclendon MD [facility] [place] [address] 05/23/2022 Procedure visit Maxillofacial Surgery Corby Montes MD [facility] [place] [address] documented as of this encounter Visit Diagnoses Diagnosis Abnormal finding on imaging Other nonspecific (abnormal) findings on radiological and other examinations of body structure documented in this encounter Care Teams Chemical Engineer Relationship Specialty Start Date End Date Albert Zuleta MD PCP - General Family Medicine 01/17/17 10/26/21 [address] [place] [address] documented as of this encounter
--- OUTSIDE RECORDS SUMMARY | 2022-02-08 02:00 | XMS_ITS | Encounter Summary ---
:1960 Author Organization [facility] [place] [address] Care Team Providers Name Role Phone Albert Jerez MD Primary Care Provider Encounter Details Date Type Department Care Team Description 12/14/2016 Hospital Encounter Radiology Library at [facility], [address] [address] [place] [phone] (Wo rk) Social History Tobacco Use Types Packs/Day Years Used Date Never Assessed Alcohol Habits Answer Date Recorded How often do you have a drink containing alcohol? Never 07/10/2018 How many drinks containing alcohol do you have on a typical Not asked day when you are drinking? How often do you have six or more drinks on one occasion? No t asked Comment: Not asked Sex Assigned at Date Recorded Female 09/28/2020 7:08 PM EST documented as of this encounter Medications at Time of Discharge Medication Sig Dispensed Refills Start Date End Date tiotropium (Spiriva) 18 Inhale 1 capsule 0 2012 mcg Capsule, w/Inhalation into the lungs. Device lisinopril 0 10/01/2009 06/26/2018 (PRINIVIL;ZESTRIL) 40 mg tablet LORazepam (ATIVAN) 0.5 mg 0 10/01/2009 01/30/2017 tablet ibuprofen (ADVIL;MOTRIN) 0 10/01/2009 01/30/2017 800 mg tablet PARoxetine (PAXIL) 40 mg 0 10/01/2009 01/30/2017 tablet hydroCODone-acetaminophen 0 10/01/2009 08/19/2018 (VICODIN) 5-500 mg per tablet aspirin 325 mg tablet 0 10/01/2009 multivitamin (THERAGRAN) 0 10/01/2009 11/06/2018 tablet b complex vitamins tablet 0 10/01/2009 01/30/2017 FOLIC ACID ORAL 0 10/01/2009 8 CALCIUM CARBONATE/VITAMIN 0 10/01/2009 06/26/2018 D3 (CALCIUM+D ORAL) documented as of this encounter Plan of Treatment Upcoming Encounters Date Type Specialty Care Team Description 03/15/2022 Office Visit Neurology Ryann Barfield APRN [facility] [address] [place], [place] [address] 03/23/2022 Appointment Radiology Hailey Mcclendon MD [facility] [address] [place] [address] 03/23/2022 Laboratory Appointment Lab 03/23/2022 Office Visit Gastroenterology Hailey Mcclendon MD [facility] [address] [place] [address] 05/23/2022 Procedure visit Maxillofacial Surgery Corby Montes MD [facility] [address] [place] [address] documented as of this encounter Procedures Procedure Name Priority Date/Time Associated Diagnosis Comme nts FILM LIBRARY Routine 12/14/2016 12:00 AM Pain Results for this STORAGE ONLY DX EDT procedure ar e in PELVIS the results section. documented in this encounter Results Film Library- Storage Only DX Pelvis (12/14/2016 12:00 AM EDT) Specimen (Source) Anatomical Location Collection Method / Collectio n Time Received Time / Laterality Volume Narrative [facility] - 01/17/2017 8:03 PM EDT This exam is for storage only and is aut o-finalizing. Joseph Felipe MD IMG FILM LIBRARY ORDERABLES Performing Organization Address City/State/ZIP Code Phon e Number [facility] [place], [place] documented in this encounter Visit Diagnoses Diagnosis Pain Generalized pain documented in this encounter Care Teams Real Time Analyst Relationship Specialty Start Date End Date Albert Jerez MD PCP - General 08/29/11 01/16/17 documented as of this encounter
--- OUTSIDE RECORDS SUMMARY | 2022-02-08 02:00 | XMS_ITS | Encounter Summary ---
:1960 Author Organization [facility] [place] [address] Care Team Providers Name Role Phone Albert Zuleta MD Primary Care Provider Reason for Visit Reason Comments Hip Pain left Consultation (Routine) - Closed Specialty Diagnoses / Procedures Referred By Contact Refer red To Contact Orthopaedics Diagnoses Hip pain b/l hip pain Albert Zuleta MD [facility] [address] [place] [phone] Referral ID Status Reason Start Date Expiration Visits Visits Date Requested Authorized [id number] Closed Connection 01/17/2017 01/17/2018 1 1 Center Consult, Test & Treat PCP Updated and/or Approved Encounter Details Date Type Department Care Team Description 01/30/2017 Office Visit Orthopaedics at [facility] Ted Castle Primary osteoarthritis [facility] [place] [address] CENTER [phone] [place] [address] Social History Tobacco Use Types Packs/Day Years Used Date Former Smoker Quit: 07/23/19 17 Alcohol Use Standard Drinks/Week Comments Yes 0 [...] Sign Reading Time Taken Comments Blood Pressure 116/70 01/30/2017 10:31 AM EDT Pulse 74 01/30/2017 10:31 AM EDT Temperature - - Respiratory Rate - - Oxygen Saturation - - Inhaled Oxygen Concentration - - Weight 137 kg (302 lb) 01/30/2017 10:31 AM EDT pt repor tacos Height 167.6 cm (5' 6) 01/30/2017 10:31 AM EDT pt repo rted Body Mass Index 48.74 01/30/2017 10:31 AM EDT documented in this encounter Progress Notes Christian Mares MD - 01/30/2017 9:50 AM EDT Images from the original note were not included. Department of Orthopaedics Division of Adult Joint Reconstructive Surgery ARTHROPLASTY HISTORY/PREVIOUS HIP SURGERY: 1. None Subjective: Blossom Samayoa is a 56 y.o. female who presents with Left hip pain. Onset of the symptoms was several years ago. There was not an inciting event. She has had prior hip problems. Blossom's previous visits for this problem: yes, last seen 2 weeks ago by [facility] orthopaedics. Evaluation to date: plainfilms, which were abnormal jointspace narrowing and osteophytes bilaterally.. Blossom reports the hip pain is groin and lateral. She does report groin pain, does not endorse thigh pain and does feel as if she walks with a limp. There is no radiation of the pain. Aggravating symptoms include: any weight bearing, going up and down stairs and walking. She feels that her hip pain is keeping her from exercising. Blossom has pain at night.. She can weight bear on the left leg and does use assistive devices. She climb stairs and does use the railing. She does have difficulty putting on her shoes and socks. She can sit comfortably in a chair for 1 hour. Blossom has tried physical therapy. She has not had injections into the joint. Use of NSAIDs/Pain meds: Narcotics, Tylenol used but not effective. SHe is no longer able to take NSAIDs due to CHF exacerbation. She does reports problems with the contralateral hip, does report problems with the ipsilateral kneeand does not have a history of spine or back issues REVIEW OF SYSTEMS: Blossom denies fevers, chills, night sweats, nausea, or vomiting. She does not endorse a history of DVT/PE or clotting disorder. QUESTIONNAIRE RESPONSES: General Health, Prior Treatments, PreExisting Condition, Health Habits, About You 01/30/2017 PROMIS-10 General Health Fair PROMIS-10 Quality of Life Poor PROMIS-10 Physical Health Poor PROMIS-10 Mental Health Good PROMIS-10 Social Activity Poor PROMIS-10 Everyday Activities A little PROMIS-10 Pain 7 PROMIS-10 Fatigue Severe PROMIS-10 Social Roles Fair PROMIS-10 Anxious or Depressed Always PROMIS PHYSICAL SCORE (range 16-68) 26.7 PROMIS MENTAL SCORE (range 21-68) 28.4 Treatments Tried Heat and ice therapy, Walking aids (e.g.cane, walker), Physical therapy, Medicines applied on the skin (topical), Acetaminophen (e.g. Tylenol) HOOS JR Scores 36.36 WILMA Grade 3 Alzheimers or dementia No Cirrohosis or liver disease No HIV/AIDS No Pain in more than one joint in legs Yes Back or neck pain No Heart attack No Heart failure Yes Unclog/bypass leg arteries No Stroke, blood clot, TIA No Asthma Yes Take medication for asthma Yes Emphysema, chronic bronchities, or COPD Yes Take medication for lung disease Yes Stomach ulcers/peptic ulcer disease No Diabetes Yes Diabetes caused problems with kidneys Yes Diabetes caused problems with eyes Yes Poor kidney function Yes Dialysis No Kidney transplant No Rheumatic condtions No Cancer No Weight (lbs) 302 Height (feet) 5 feet Height (Inches) 6 BMI 48.73 (Obese) Ever used alcoholic beverages Yes Alcohol frequency Never WHO - Alcohol Advice 0 (You are at low risk of health and other problems from your current pattern of use.) Live Alone Yes Marital situation / Schooling Some college or 2 - year degree Combined Household Income $10,000 to less than $15,000 # People Supported 1 Moldovan, , No, not Moldovan// Health Literacy Quite a bit Currently working No Not working because: Not working due to disability [facility] Response 01/30/2017 HOOS JR Scores 36.36 Spine [facility] Response 01/30/2017 HOOS JR Scores 36.36 ALLERGIES Allergies Allergen Reactions ??? Cis Free Text Allergy Ketamine. CIS - hallucinations ??? Sulfa (Sulfonamide Antibiotics) CIS - Hives Allergies to metals: none. SOCIAL HISTORY: reports that she quit smoking about 6 months ago. She does not have any smokeless tobacco history on file. She reports that she drinks alcohol. She reports that she does not use illicitdrugs. Occupation: retired SIGNIFICANT MEDICAL COMORBIDITIES: Patient Active Problem List Diagnosis Code ??? CIS - Cardiomyopathy ??? CIS - Chest pain ??? CIS - Depression ??? CIS - Diabetes Mellitus ??? CIS - Entered not Verified ??? CIS - Herpes simplex ??? CIS - LBBB ??? CIS - Nephrolithiasis ??? CIS - Obesity ??? CIS - OCD ??? CIS - Osteoma, R ear canal ??? CIS - Sarcoidosis Objective: BP 116/70 Pulse 74 Ht 167.6 cm (5' 6) Comment: pt reported Wt (!) 137 kg (302 lb) Comment: pt reported BMI 48.74 kg/m2 General : alert, appears stated age and cooperative Gait: Antalgic. The patient can bear weight on the injured extremity. I have made the following determinations: Hip Exam: Left Prior surgery on this joint:No Leg Length: Longer leg: equal Limb Length discrepancy: 0cm Motion: Flexion contracture: 0 Total degrees of Flexion: 120 Total degrees of Abduction: 40 Total degrees of Ext Rotation: 25 Total degrees of Internal Rotation: 20 Gait Abnormality: Antalgic Radiographic evidence of joint damage: [0= normal; 1=minimal ; 2= some osteophytes , some narrowing ; 3= moderate osteophytes, significant narrowing, mild deformity; 4= large osteophytes, marked narrowing, obvious deformity]: 3= moderate osteophytes, significant narrowing, mild deformity Skin Integrity: Normal Pulses Palpable: Left PT: Yes Left DP: Yes Motor/Sensory: Left Distal Motor: Normal Distal Sensory: Normal Hip Abductors: 4 Trendelenburg test: negative Imaging: X-ray AP Pelvis: Joint space narrowing and osteophytes noted bilaterally L>R. Assessment: Ms. Samayoa is a 56 y.o. year old female with moderate osteoarthritis of her left hip. Plan: Natural history and expected course discussed. Questions answered. We reviewed the multiple treatment options available to her for this condition and the hurtful but non-harmful nature of arthritis. Both operative and nonoperative options were discussed as well as thepure elective nature of each. I reviewed the concept of the arthritis ladder with its step-eden approach, rising in invasiveness based on either previous response or symptom severity/impact on lifestyle. The patient was referred for fluoroscopic-guided injection of the left hip with local anesthetic andsteroid. She was instructed to initiate a weight loss plan with 30 lbs of weight loss as an initial goal. If she is able to demonstrate progress toward weight loss, we will discuss potential operative intervention for her left hip osteoarthritis at that time. She was instructed to contact the orthopaedic clinic for an appointment after she has lost weight. Christian Mares MD Ted Castle MD - 01/30/2017 9:50 AM EDT I performed a history and physical examination of the patient and discussed the management plan withDr. Mares. I also discussed the different treatment options, as well as the risks and benefits of each with the patient and questions were answered. I reviewed the note and agree with the documented f indings and plan of care. Ted Castle MD, LEONOR documented in this encounter Plan of Treatment Upcoming Encounters Date Type Specialty Care Team Description 03/15/2022 Office Visit Neurology Ryann Barfield APRN [facility] [address] [place] [address] 03/23/2022 Appointment Radiology Hailey Mcclendon MD [facility] [place] [address] 03/23/2022 Laboratory Appointment Lab 03/23/2022 Office Visit Gastroenterology Hailey Mcclendon MD [facility] [address] [place] [address] 05/23/2022 Procedure visit Maxillofacial Surgery Corby Montes MD [facility] [address] [place] [address] documented as of this encounter Visit Diagnoses Diagnosis Primary osteoarthritis of left hip Primary localized osteoarthrosis, pelvic region and thigh documented in this encounter Care Teams Electrical Cad Designer Relationship Specialty Start Date End Date Albert Zuleta MD PCP - General Family Medicine 01/17/17 10/26/[address] [place] [address] documented as of this encounter
--- OUTSIDE RECORDS SUMMARY | 2022-02-08 02:00 | XMS_ITS | Encounter Summary ---
:1960 [place] [address] Care Team Providers Name Role Phone Albert Zuleta MD Primary Care Provider Encounter Details Date Type Department Care Team Description 06/07/2018 [facility] Formerly [facility] [place] [address] UROLOGY DEPT. [phone] [place], [place] [address] (Wo rk) Social History Tobacco [...] 02/03/2013 mcg Capsule, the lungs. w/Inhalation Device loratadine (CLARITIN) TAKE ONE TABLET BY 3 2017 10 mg Tablet MOUTH EVERY DAY NEEDED spironolactone TAKE ONE TABLET BY 3 05/13/2018 (ALDACTONE) 25 mg MOUTH EVERY DAY Tablet lisinopril TAKE ONE TABLET BY 3 03/09/2018 (PRINIVIL;ZESTRIL) 5 mg MOUTH DAILY Tablet levalbuterol (XOPENEX INHALE TWO PUFFS BY 3 05/0712/28/2020 HFA) 45 mcg/actuation MOUTH EVERY 4 TO 6 HFA Aerosol Inhaler HOURS NEEDED INCRUSE ELLIPTA 62.5 INHALE ONE PUFF BY 5 018 12/28/2020 mcg/actuation Disk with MOUTH EVERY DAY Device TRULICITY 1.5 mg/0.5 mL INJECT SUBCUTANEOUSLY 5 1 08/19/2018 Pen Injector ONCE WEEKLY FOR BLOOD SUGAR JANUVIA 100 mg Tablet TAKE ONE TABLET BY 1 201709/25/2018 MOUTH EVERY DAY furosemide (LASIX) 40 TAKE ONE TABLET BY 3 201707/11/2018 mg Tablet MOUTH EVERY DAY carvedilol (COREG) Take 12.5 mg by mouth 3 201711/20/2019 3.125 mg Tablet 2 times daily. magnesium oxide TAKE ONE TABLET BY 1 03/06/2018 0 03/28/2019 (MAG-OX) 400 mg (241.3 MOUTH TWICE A DAY mg magnesium) Tablet potassium chloride TAKE ONE CAPSULE BY 3 04/28/20 18 07/11/2018 (MICRO-K) 10 mEq MOUTH EVERY DAY Capsule, Sustained Release lisinopril 0 10/01/2009 06/26/2018 (PRINIVIL;ZESTRIL) 40 mg tablet hydroCODone-acetaminoph 0 10/01/2009 0 08/19/2018 en (VICODIN) 5-500 mg per tablet aspirin 325 mg tablet 0 10/01/2009 multivitamin 0 10/01/2009 11/06/2018 (THERAGRAN) tablet FOLIC ACID ORAL 0 10/01/2009 8 CALCIUM 0 10/01/2009 06/26/2018 CARBONATE/VITAMIN D3 (CALCIUM+D ORAL) documented as of this encounter Plan of Treatment Upcoming Encounters Date Type Specialty Care Team Description 03/15/2022 Office Visit Neurology Ryann Barfield APRN [facility] [place], [place] [address] 03/23/2022 Appointment Radiology Hailey Mcclendon MD [facility] [place] [address] 03/23/2022 Laboratory Appointment Lab 03/23/2022 Office Visit Gastroenterology Hailey Mcclendon MD [facility] [place] [address] 05/23/2022 Procedure visit Maxillofacial Surgery Corby Montes MD [facility] [address] [place] [address] documented as of this encounter Procedures Procedure Name Priority Date/Time Associated Diagnosis Comme nts FILM LIBRARY Routine 06/07/2018 12:00 AM Results for this STORAGE ONLY CT EST procedure ar e in ABDOMEN AND PELVIS the resul ts section. documented in this encounter Results Film Library- Storage Only CT Abdomen & Pelvis (06/07/2018 12:00 AM EST) Specimen (Source) Anatomical Location Collection Method / Collectio n Time Received Time / Laterality Volume Narrative [facility] - 06/19/2018 6:21 PM EST This exam is for storage only and is aut o-finalizing. Crow Galvin Jr., MD IM[facility] FILM LIBRARY ORDERABLES Performing Organization Address City/State/ZIP Code Phon e Number [place], [place] documented in this encounter Visit Diagnoses Not on filedocumented in this encounter Care Teams Ophthalmic Medical Technician Relationship Specialty Start Date End Date Albert Zuleta MD PCP - General Family Medicine 01/17/17 10/26/21 [address] [place] [id number] documented as of this encounter
--- OUTSIDE RECORDS SUMMARY | 2022-02-08 02:00 | XMS_ITS | Encounter Summary ---
:1960 Author Organization [facility] [place] [address] Care Team Providers Name Role Phone Albert Zuleta MD Primary Care Provider Reason for Visit Auth/Cert Specialty Diagnoses / Procedures Referred By Contact Refer red To Contact Diagnoses Nephrolithiasis UROSEPSIS Referral ID Status Reason Start Date Expiration Date Visits Requ ested Visits Authorized [id number] 1 1 Encounter Details Date Type Department Care Team Description 07/09/2018 - Hospital Encounter 1 [place] [address] Sepsis, due to unspecified organism; 07/11/2018 [facility] [place] [address] [place] [address] Social History Tobacco Use Types Packs/Day Years [...] Sign Reading Time Taken Comments Blood Pressure 139/58 07/11/2018 4:31 PM EST Pulse 79 07/11/2018 4:31 PM EST Temperature 36.8 ??C (98.2 ??F) 07/11/2018 4:31 PM EST Respiratory Rate 20 07/11/2018 4:31 PM EST Oxygen Saturation 95% 07/11/2018 4:31 PM EST Inhaled Oxygen Concentration - - Weight 142.6 kg (314 lb 6 oz) 07/10/2018 3:00 AM EST Height 167.6 cm (5' 6) 07/09/2018 5:17 PM EST Body Mass Index 50.74 07/09/2018 5:17 PM EST documented in this encounter Discharge Summaries Kelsey Eaton MD - 07/11/2018 11:59 AM EST Inpatient Hospital Medicine - Discharge Summary Patient Name: Blossom Samayoa Patient Age: 57 y.o. Birthdate: 1960 Admit date: 07/09/2018 Discharge date and time: 07/11/2018 Attending Physician: Kelsey Eaton MD Follow-up Recommendations for Providers: - Please follow-up with Ms. Samayoa about her recent hospitalization for obstructive nephrolithiasisrequiring R ureteral stent placement - Urinary culture from referral hospital was positive for Proteus Mirabilis, patient was discharged on two week course of Cefpodoxime for complicated urinary tract infection - We are holding Ms. Samayoa's Lasix because of her history of calcium oxalate stones and the potential for loop diuretics to worsen nephrolithiasis. Please advise Ms. Samayoa on an appropriate Lasix dose or please consider switching her over to HCTZ as a diuretic - Please follow up CBC and BMP Discharge Diagnoses (Hospital Problems) and Secondary Diagnoses (Chronic Problems): Active Hospital Problems Diagnosis ??? Nephrolithiasis Resolved Hospital Problems No resolved problems to display. Operations/Major Procedures: - Cystoscopic R sided ureteral stent placement (07/10/18) Procedure Description: The patient was identified in the ISCU. Consent was obtained. The correct side of the procedure was marked (right). The patient was taken to the operating room and placed supine on the operating table.General anesthesia was induced. The patient was then moved to the lithotomy position and prepped anddraped in the usual sterile fashion. A timeout was performed involving all members of the OR team confirming the patient's identity and planned procedure. Preoperative antibiotics were administered. A 22 Fr rigid cystoscope was inserted into the bladder. A r5fr pollack was inserted into the right ureteral orifice and a retrograde was taken showing a filling defect at the expected level of the stone. We attempted to pass a guide wire but were unsuccessful. However, an angled glide wire was able matias passed beyond the stone. The 5 fr pollack was advanced to the renal pelvis and a urine sample wasobtained. The pollack was removed leaving the wire in place. A 6 Fr variable ureteral stent was passed over the wire. The proximal coil was visualized on fluoroscopy to be within the renal pelvis, and the distal coil was seen with direct visualization in the bladder. The bladder was emptied. The cystoscope was removed. ?? The patient tolerated the procedure well and was awakened from anesthesia with no adverse events.??The patient was taken to the recovery area in stable condition.?? History of Presentation: Blossom Samayoa is a 57 y.o. Female with PMHx significant for obesity, nephrolithiasis, DM2, HTN,and reducible abdominal hernia who presents to [facility] as transfer from [facility] with concern for sepsis likely 2/2 to UTI or hydronephrosis/pylonephritis in the setting of long-standing known Calcium Oxalatenephrolithiasis and poor PO intake ?? Ms. Samayoa was in her usual state of health until 2 days prior to admission (07/07) when she woke up and felt like I had the flu. She began developing nausea, vomiting, abdominal pain in her lower middle abdomen, and a slight fever. She began sweating profusely, especially when she vomited. Her last episode of emesis was between 4-5AM on the day prior to presentation. She felt like she was constipated, which is unusual for her given her history of IBS (diagnosed at age 18). Of note, she hashad poor PO intake for the past 3 days. ?? The abdominal pain is described as intermittent, lasts a few seconds, feels like peristalsis is trying to start, but it can't. Resolves spontaneously. Says this pain is not similar to the pain from her prior problems with kidney stones. Pain does not radiate. The day prior to waking up feeling ill (07/06) she had one episode of twisting kidney pain in her anterior abdomen. The abdominal pain was associated with N/V, poor PO intake, and diaphoresis. She has noticed that her urine has become foul smelling and dark over the past few days, associating this with her poor PO intake. She usually drinks 2.5L of water a day. ?? She presented to [facility] where she reported I cannot keep anything down and given her history of abdominal hernia, raised concern for obstruction. Surgery was consulted and the hernia was reduced, but the patient's abdominal pain persisted. A U/A was performed which was concerning for a UTI. Of note, she has had 4 UTIs in the past [address] Chest Abdomen Pelvis at [facility] demonstrated a large stone impacted in the right ureteropelvic junction with severe hydronephrosis. ?? Denies dysuria, changes in frequency, urgency, hematuria, changes in bowel frequency/consistency (she has long-standing diarrhea as a consequence of her IBS), back pain ?? Has known LBBB. Has not used SLNGT since 2008. No histories of heart attack. ?? No SoB, some Roche. Hospital Course: #Possible sepsis likely 2/2 to UTI vs Hydronephrosis: Concern for sepsis on transfer from OSH with slightly elevated trop and lactate but had improved by time of transfer without overt evidence of sepsis. Upon admission to [facility], Ms. Samayoa's CT imaging from [facility] was reviewed and it appeared that she hadbilateral nephrolithiasis with severe right hydronephrosis secondary to an impacted stone (measuringup to 16.4 mm in maximal diameter) at the ureteropelvic junction. She was stable on the night of admission so she was initiated on Ceftriaxone for a U/A concerning for a UTI and scheduled for ureteral stenting with Urology. On the morning 07/20, Ms. Samayoa underwent a cystoscopic placement of a R ureteral stent. She tolerated the procedure well, returned from the PACU, and was transferred from our step-down unit to the medical floors. On the following morning, her Urine Cultures and Blood Cultures were showing NGTD, she was afebrile, pain controlled, and making good urine. She was therefore considered stable for discharge to home on antibiotics with close follow-up with her PCP. Urine Cultures from referral hospital were consistent with Proteus Mirabilis that was sensitive to cephalosporins. Patient was discharged on Cefpodoxime to complete two week course for complicated urinary tract infection. Patient will follow up with Urology as outpatient. #DM2 likely related to obesity/insulin resistance: Patient was placed on sliding scale, moderate sensitivity. Continued Gabapentin for her neuropathy. She will resume home oral anti-glycemic medications following discharge. #Hypertension Home antihypertensives were initially held due to concerns for urosepsis. Patient remained hemodynamically stable throughout the remainder of her hospital course and did not meet SIRS criteria. Home antihypertensives were resumed, including carvedilol, lisinopril, and spironolactone. Home furosemide was potassium chloride were held as patient appeared euvolemic. It was thought that furosemide may be attributing to recurrence of calcium oxalate stones. Patient will follow up with primary care provider about consideration for resuming furosemide. #Home medications Patient was on full dose 325 mg aspirin prior to hospital admission. She was changed to 81 mg on dayof discharge. Important Studies and Lab Data: Labs: Recent Labs 07/11/18 0743 07/10/18 0320 07/09/181949 WBC 8.5 12.0* 14.1* HGB 10.7* 12.4 12.5 PLATELET 155 216 216 Recent Labs 07/11/18 0743 07/10/18 0320 07/09/181949 NA 135 136 138 K 4.0 4.0 4.0 CL 101 99 102 CO2 23 21* 24 BUN 9 13 14 CREATININE 0.76 0.77 0.76 Recent Labs 07/09/181949 AST 32* ALT 25 ALKPHOS 73 BILITOT 1.2 BILIDIR 0.3 Recent Labs 07/11/18 0743 07/10/18 0320 07/09/181949 CALCIUM 9.6 9.6 9.8 MAGNESIUM -- -- 0.65* PHOS -- -- 2.0* Recent Labs 07/09/181949 INR 1.2 PT 13.1* Microbiology Results (Last 30 days) Procedure Component Value Units Date/Time Urine culture Urine [[id number]] Collected: 07/10/18 1037 Lab Status: Final result Specimen: Urine Updated: 07/11/1848 Urine Culture No growth (Less than 1,000 cfu/ml). Urine culture [[id number]] Collected: 07/09/182220 Lab Status: Final result Specimen: Clean Catch Urine Updated: 07/11/18747 Urine Culture No growth (Less than 1,000 cfu/ml). Blood culture [[id number]] Collected: 07/09/182002 Lab Status: Preliminary result Specimen: Blood Updated: 07/10/18 230 Blood Culture No growth at 1 day. Blood culture [[id number]] Collected: 07/09/181949 Lab Status: Preliminary result Specimen: Blood Updated: 07/10/182300 Blood Culture No growth at 1 day. Urine Culture from [facility] on 07/09/18 Urine Culture > 100,000 colonoies Proteus mirabilis Ampicillin - R Ampicillin/Sulbactam - R Cefazolin - S Ceftriaxone - S Ciprofloxacin - R Gentamicin - I Nitrofurantoin - R Tobramycin - I Trimethoprim/Sulfamethoxazole - R Piperacillin-Tazobactam - S Radiology/Studies: 07/09/2018 CT A/P??([facility]) Bilateral nephrolithiasis. Severe right hydronephrosis secondary to [...] left hydronephrosis. The left ureter is unremarkable. ?? 06/07/2018 CT A/P -Multiple right ureteral calculi, largest sen proximaly, stones present at right UPJ and right UVJ -bilateral nephrolithiasis -no evidence of bowel obstruction, moderate-sized midline anterior abdominal wall hernia containing nonobstructed loop of small bowel ?? Other Studies: EKG (07/09) Normal sinus rhythm Left bundle branch block Abnormal ECG No previous ECGs available Pending Studies and Lab Data: No current labs Discharge Conditions/Prognosis: Upon discharge the pt is hemodynamically stable, fully ambulatory without requiring supplemental oxygen, holding down food/drink, afebrile and pain controlled with stable oral regimen. Discharge to: Home Discharge Medications: Your Medications Some of the medications listed here do not show instructions, such as how often to take the medication. Ask your doctor or nurse how to use these medications. Specifically ask about these and similar medications: ?? hydroCODone-acetaminophen (VICODIN) 5-500 mg per tablet ?? multivitamin (THERAGRAN) tablet New Medications Dose Details aspirin 81 mg Chew Take 81 mg by mouth daily. Replaces: aspirin 325 mg Tab 81 mg Quantity: 30 tablet Refills: 3 cefPODOXime 200 mg Tab Commonly known as: VANTIN Take 1 tablet by mouth 2 times daily for 12 days. 200 mg Quantity: 24 tablet Refills: 0 Continued medications, unchanged Dose Details carvedilol 3.125 mg Tab Commonly known as: [...] Generic drug: HYDROcodone-acetaminophen Refills: 0 STOPPED Medications aspirin 325 mg Tab Replaced by: aspirin 81 mg Chew furosemide 40 mg Tab Commonly known as: LASIX potassium chloride 10 mEq Cpsr Commonly known as: MICRO-K Updated Allergies/ADRs: Allergies Allergen Reactions ??? Augmentin [Amoxicillin-Pot Clavulanate] Hives and Itching ??? Cis Free Text Allergy Ketamine. CIS - hallucinations ??? Erythromycin Hives and Itching ??? Macrobid [Nitrofurantoin Monohyd/M-Cryst] Causes depression ??? Sulfa (Sulfonamide Antibiotics) Hives Instructions Given to Patient at Discharge: Patient Instructions Instruction after leaving the hospital Why you were hospitalized: You had kidney stones that blocked your ureters leading to a back-up of urine into your kidneys causing pain and possible infection. You received a stent in your ureter to allow for further flow of fluid. You received antibiotics for your urinary tract infection. Call your doctor or seek medical attention if you develop the following: Call your doctor or seek medical attention if you experience any alarming symptoms. This may include, but is not limited to, fever, chest pain, severe shortness of breath, nausea with vomiting, persistent decrease in your urinaryoutput, severe pain, or any other concerning symptoms. Please call if you notice blood in your urineand continue to have abdominal pain. Activity level: As tolerated. Diet: No new restrictions. Driving: Please do not drive if you feel lightheaded, dizzy, faint, or taking any opioids/narcotics (i.e oxycodone). It is advisable that you do not drive till you follow-up with your primary care physician. Shower/Bath: No new restrictions. Wound Care: N/A Home Oxygen therapy: N/A Patient Instructions: - Please follow-up with your PCP about your recent hospitalization - We are stopping your Lasix. Please check your weight every day. If you gain 2lbs within 24 hours or 3lbs within 48 hours, please call your PCP and ask if you should take your dose of Lasix. - Check for swelling in your legs and shortness of breath each day. If you experience these symptoms, please call your PCP and ask about taking Lasix. Changes in Your Medications: New Medications: Cefpodoxime 200 mg twice daily Medication dose changes: None Stop these medications: Furosemide Potassium Chloride Follow-Up Appointments Future Appointments Date Time Provider Department Center 08/28/2018 8:30 AM [facility] Gal[facility] Jr[facility] Date and Time Provider and Specialty Location 9:00AM on 07/30/17 Ablert Zuleta MD , PCP [address] / [facility] [id number] Your Inpatient Doctor(s) at [facility]: MD Leon Chauhan MD Your Primary Care Provider: MD [address] / [facility] [id number] For questions regarding this document or issues relating to this hospitalization on the Medical Service, please contact your inpatient physician through the [facility] Darkroom Technician . Issues after hours and on weekends will be handled by the Hospitalist staff on-call. Nursing Patient Care Recommendations: Bowel function (most recent BM, potential for constipation and plan to prevent it) - Bladder function (Elliott, ISC, bladder scan, straight cath, etc.) - Diabetes management(?started on insulin in the hospital, issues) - Mental status assessment (Dementia? Delirium? stable, worsening, improving?) - Diet/Nutrition (supplemental nutrition types, tube feed type and rates, limitations in diet such as nectars, soft-mechanical, ability to feed ,speech pathology recs) - Physical Therapy Recommendations Summary: Occupational Therapy Recommendations Summary: Wound Care Recommendations: Other Instructions: General Instructions None Provider Contact Information: Alcon Underwood MD Internal Medicine [facility] [address] [facility] [place] [address] Discharge References/Attachments: Discharge References/Attachments KIDNEY STONE (MALAYSIAN) KIDNEY STONE PREVENTION DIET: GENERAL INFO (MALAYSIAN) URETERAL STENT PLACEMENT: POST-OP (MALAYSIAN) URINARY TRACT: FEMALE: ANATOMY SKETCH (MALAYSIAN) For questions regarding this document or issues relating to this hospitalization on the Medical Service, please contact your inpatient physician through the [facility] Darkroom Technician . Issues after hours and on weekends will be handled by the Hospitalist staff on-call. Signed: Alcon Underwood MD 07/11/2018 documented in this encounter Discharge Instructions Patient InstructionsAlcon Underwood MD - 07/11/2018 11:45 AM EST Instruction after leaving the hospital Why you were hospitalized: You had kidney stones that blocked your ureters leading to a back-up of urine into your kidneys causing pain and possible infection. You received a stent in your ureter to allow for further flow of fluid. You received antibiotics for your urinary tract infection. Call your doctor or seek medical attention if you develop the following: Call your doctor or seek medical attention if you experience any alarming symptoms. This may include, but is not limited to, fever, chest pain, severe shortness of breath, nausea with vomiting, persistent decrease in your urinaryoutput, severe pain, or any other concerning symptoms. Please call if you notice blood in your urineand continue to have abdominal pain. Activity level: As tolerated. Diet: No new restrictions. Driving: Please do not drive if you feel lightheaded, dizzy, faint, or taking any opioids/narcotics (i.e oxycodone). It is advisable that you do not drive till you follow-up with your primary care physician. Shower/Bath: No new restrictions. Wound Care: N/A Home Oxygen therapy: N/A Patient Instructions: - Please follow-up with your PCP about your recent hospitalization - We are stopping your Lasix. Please check your weight every day. If you gain 2lbs within 24 hours or 3lbs within 48 hours, please call your PCP and ask if you should take your dose of Lasix. - Check for swelling in your legs and shortness of breath each day. If you experience these symptoms, please call your PCP and ask about taking Lasix. Changes in Your Medications: New Medications: Cefpodoxime 200 mg twice daily Medication dose changes: None Stop these medications: Furosemide Potassium Chloride Follow-Up Appointments Future Appointments Date Time Provider Department Center 08/28/2018 8:30 AM Crow Galvin Jr., MD [facility] Date and Time Provider and Specialty Location 9:00AM on 07/30/17 Albert Zuleta MD , PCP [address] / [facility] [id number] Your Inpatient Doctor(s) at [facility]: MD Alcon Chauhan MD Michael A Pfeffer, MD Your Primary Care Provider: Albert Zuleta MD [address] / [facility] [id number] For questions regarding this document or issues relating to this hospitalization on the Medical Service, please contact your inpatient physician through the [facility] Darkroom Technician . Issues after hours and on weekends will be handled by the Hospitalist staff on-call. Nursing Patient Care Recommendations: Bowel function (most recent BM, potential for constipation and plan to prevent it) - Bladder function (Elliott, ISC, bladder scan, straight cath, etc.) - Diabetes management(?started on insulin in the hospital, issues) - Mental status assessment (Dementia? Delirium? stable, worsening, improving?) - Diet/Nutrition (supplemental nutrition types, tube feed type and rates, limitations in diet such as nectars, soft-mechanical, ability to feed ,speech pathology recs) - Physical Therapy Recommendations Summary: Occupational Therapy Recommendations Summary: Wound Care Recommendations: Other Instructions: AttachmentsThe following attachments cannot be sent through Care Everywhere. KIDNEY STONE (MALAYSIAN)KIDNEY STONE PREVENTION DIET: GENERAL INFO (MALAYSIAN) URETERAL STENT PLACEMENT: POST-OP (MALAYSIAN)URINARY TRACT: FEMALE: ANATOMY SKETCH (MALAYSIAN)documented in this encounter Medications at Time of [...] mouth daily. (CULTURELLE) 10 billion cell Capsule cefPODOXime (VANTIN) Take 1 tablet by mouth 24 tablet 0 07/24/2018 200 mg Tablet 2 times daily for 12 days. levalbuterol (XOPENEX INHALE TWO PUFFS BY 3 [...] documented as of this encounter Progress Notes Cassandra Sofia RN - 07/11/2018 4:58 PM EST A+O. VSS. No acute events. Pt tolerating plan of care well. Discharge orders placed, PIV removed. AVS reviewed with pt. Transportation to pick patient up at [facility] at 1830. Pt left unit withall personal belongings to home. Linda Rodriguez MD - 07/11/2018 8:17 AM EST INPATIENT DAILY PROGRESS NOTE Patient Name: Blossom Samayoa Patient Age: 57 y.o. Birthdate: 1960 Admit date: 07/09/2018 Attending Physician: Kelsey Eaton MD ID: Blossom Samayoa is a 57 y.o. female who presented to the [facility] ED??with nausea and vomiting.?Found on workup at OSH to have leukocytosis to 16, cr 1.04, elevated troponin to 0.8, UA with??+protein/mod blood/+nitrites/large LE, CT findings of Right hydronephrosis, large Right UPJ stone and obstructing Right UVJ stone.??She received 1g rocephin at [facility]. ?? The patient had been to the [facility] ED last month with complaints of Right flank pain and CT at that time 06/07/2018 showed a similar appearance to CT from earlier today. She was managed with oral pain medications and attempt to pass the smaller ureteral stones spontaneously. She was referred to [facility] Urology and was supposed to be seen in clinic today for consultation but had presented to the ED instead. Taken to OR for right side stent placement. 24hr events/S: No complaints this AM. Pain is well controlled. Tolerating CHO diet, no n/v. Ambulating with cane. Voiding spontaneously. No cp/sob. O: Last value Range last 24hrs Temperature Temp: 36.6 ??C (97.9 ??F) Temp: [36.2 ??C (97.2 ??F)-37.3 ??C (99.1 ??F)] Heart Rate Heart Rate: 78 Heart Rate: [78-106] Blood Pressure BP: 146/62 BP: (100-152)/(52-116) Respiratory Rate Resp: 20 Resp: [12-22] SpO2 SpO2: 94 % SpO2: [89 %-100 %] 07/10 0701 - 07/11 0700 In: 1340 [P.O.:550; I.V.:717] Out: 2325 [Urine:2325] Carb Control diet 60/60/75 CHO counting level 2 Physical Exam: General: NAD, A&Ox3, resting in bed, cooperative Chest: Normal WOB Abd: soft, non-tender, no CVA tenderness bilaterally, non-distended. No guarding. Skin: warm, dry Ext: well perfused, no edema Neuro: Grossly intact, nonfocal, moving all four extremities spontaneously. Lines/Drains: No elliott Recent Labs 07/11/18 0743 07/10/18 0320 07/09/181949 WBC 8.5 12.0* 14.1* HGB 10.7* 12.4 12.5 HCT 32.4* 36.6 37.4 PLATELET 155 216 216 PT -- -- 13.1* INR -- -- 1.2 PTT -- -- 26 Recent Labs 07/10/18 0320 07/09/181949 NA 136 138 K 4.0 4.0 CL 99 102 CO2 21* 24 BUN 13 14 CREATININE 0.77 0.76 GLUCOSE -- 206* CALCIUM 9.6 9.8 MAGNESIUM -- 0.65* PHOS -- 2.0* Micro: Urine culture pending Per patient report history of CaOx stones Imaging: Right side proximal ureteral stone 1.6cm. Right side distal 4mm ureteral stone. Left side renal stone 1.8cm. H/o SWL for stones, last treatment 4 years ago. Has had left side stone known to patient for~6 years per her report. ASSESSMENT: Blossom Samayoa is a 57 y.o. female s/p right side ureteral stent placement. PLAN Will arrange definitive stone therapy. F/u urine cultures and tailor antibiotics accordingly. In absence of indications would favor reducing use of full strength aspirin at home in favor of baby aspirin. If PCNL indicated she will need to be off aspirin completely for 1 week prior to procedure, she understands this. DISPO: Stable on floor. Stephen Fernandez MD ADDENDUM: I have seen with patient with Dr. Galvin. We discussed starting with a right-sided PCNL, likely in August, but we will try to schedule as soon as possible. The surgical consent for the right side has been signed. She agrees to rescinding her DNR status jason-procedurally, which is noted on the consent form. She knows to stop taking ASA for 10 days prior to the procedure. After the right-sided stone burden has been addresses, we will plan on left-sided PCNL about a month later. I have also asked anesthesia to come by today for pre-anesthesia assessment, given her co-morbidities. Alcon Underwood MD - 07/11/2018 6:58 AM EST [facility] Medicine Daily Progress Note Admit Date: 07/09/2018 Pt ID: Blossom Samayoa is a 57 y.o. Female with PMHx significant for obesity, nephrolithiasis, DM2, HTN, and reducible abdominal hernia who presents to [facility] [place] transfer from [facility] with concern for sepsis likely 2/2 to UTI or hydronephrosis/pylonephritis in the setting of long-standing known Calcium O xalate nephrolithiasis and poor PO intake PCP: Albert Zuleta MD Subjective/24hr events: - No acute events overnight - AVSS - S/P R ureteral stent placement on 07/10. Tolerated procedure well. Pain controlled with Toradol - Transferred from ISCU to floors - BCx NGTD - ROS: Patient denies fevers, chills, nausea/vomiting, diarrhea/constipation, sob/cp, dysuria. EXAM: Last value Range last 24 hrs Temperature Temp: 36.6 ??C (97.9 ??F) Temp: [36.2 ??C (97.2 ??F)-37.3 ??C (99.1 ??F)] Heart Rate Heart Rate: 78 Heart Rate: [78-106] Blood Pressure BP: 146/62 BP: (100-152)/(52-116) Respiratory Rate Resp: 20 Resp: [12-22] SpO2 SpO2: 94 % SpO2: [89 %-100 %] Intake/Output Summary (Last 24 hours) at 07/11/2018 0947 Last data filed at 07/11/2018 0911 Gross per 24 hour Intake 1940 ml Output 2625 ml Net -685 ml GEN: NAD, obese, well developed, A&Ox3 HEENT: NC/AT, anicteric sclera, MMM, perrl, eomi, op clear, neck supple, no JVD noted CV: RRR, S1, S2, no M/R/G noted. Distal pulses palpable 2+ PULM: CTABL, no wheezes, rales, or ronchi appreciated ABD: obese, soft, mild diffuse TTP, hypoactive bowel sounds, no rebound, no guarding, L sided ventral hernia present. No CVA tenderness EXT: Warm, well perfused. No clubbing, cyanosis, edema noted Skin: No obvious rashes or bruises noted Neuro: Moves all limbs spontaneously, strength grossly normal, sensation grossly intact Lines/Tubes: PIV LABS: Reviewed in eDH. Remarkable for the following: Recent Labs 07/11/18 0743 07/10/18 03207/09/181949 WBC 8.5 12.0* 14.1* HGB 10.7* 12.4 12.5 HCT 32.4* 36.6 37.4 PLATELET 155 216 216 Recent Labs 07/11/18 0743 07/10/18 0320 07/09/181949 NA 135 136 138 K 4.0 4.0 4.0 CL 101 99 102 CO2 23 21* 24 BUN 9 13 14 CREATININE 0.76 0.77 0.76 GLUCOSE 202* -- 206* CALCIUM 9.6 9.6 9.8 MAGNESIUM -- -- 0.65* PHOS -- -- 2.0* Recent Labs 07/09/181949 AST 32* ALT 25 ALKPHOS 73 BILITOT 1.2 BILIDIR 0.3 MICRO: Microbiology Results (Last 30 days) Procedure Component Value Units Date/Time Urine culture Urine [[id number]] Collected: 07/10/18 1037 Lab Status: Final result Specimen: Urine Updated: 07/11/18 0748 Urine Culture No growth (Less than 1,000 cfu/ml). Urine culture [[id number]] Collected: 07/09/182220 Lab Status: Final result Specimen: Clean Catch Urine Updated: 07/11/18 0748 Urine Culture No growth (Less than 1,000 cfu/ml). Blood culture [[id number]] Collected: 07/09/182002 Lab Status: Preliminary result Specimen: Blood Updated: 07/10/18 230 Blood Culture No growth at 1 day. Blood culture [[id number]] Collected: 07/09/181949 Lab Status: Preliminary result Specimen: Blood Updated: 07/10/18 230 Blood Culture No growth at 1 day. Recent Labs 07/10/18 1037 URINECULTURE No growth (Less than 1,000 cfu/ml). Recent Labs 07/09/18 1950 07/09/182002 BLOODCX No growth at 1 day. No growth at 1 day. STUDIES: 07/09/2018 CT A/P??([facility]) Bilateral nephrolithiasis. Severe right hydronephrosis secondary to [...] left hydronephrosis. The left ureter is unremarkable. ?? 06/07/2018 CT A/P -Multiple right ureteral calculi, largest sen proximaly, stones present at right UPJ and right UVJ -bilateral nephrolithiasis -no evidence of bowel obstruction, moderate-sized midline anterior abdominal wall hernia containing nonobstructed loop of small bowel ?? EKG (07/09) Normal sinus rhythm Left bundle branch block Abnormal ECG No previous ECGs available Patient Active Problem List Diagnosis Code ??? [...] ??? CIS - Sarcoidosis ??? Nephrolithiasis N20.0 Medications: Scheduled Meds: ??? lisinopril 5 mg Oral Daily ??? carvedilol 3.125 mg Oral BID WC ??? spironolactone 25 mg Oral Daily ??? insulin lispro 2-8 Units Subcutaneous TID AC ??? sodium chloride 0.9 % 5 mL Intravenous BID ??? enoxaparin 40 mg Subcutaneous Nightly ??? docusate sodium 100 mg Oral BID ??? cefTRIAXone 2 g Intravenous Q24H ??? gabapentin 600 mg Oral TID Continuous Infusions: PRN Meds:.iohexol, sodium chloride 0.9 %, lidocaine, acetaminophen, Glucose 40% oral gel OR dextrose 50% OR glucagon (human recombinant) ASSESSMENT/PLAN: Blossom Samayoa is a 57 y.o. Female with PMHx significant for obesity, nephrolithiasis, DM2, HTN,and reducible abdominal hernia who presents to [facility] [place] transfer from [facility] with concern for sepsis likely 2/2 to UTI or hydronephrosis/pylonephritis in the setting of long-standing known Calcium Oxalatenephrolithiasis and poor PO intake ?? The driving force behind her presentation is likely ureteral obstruction resulting in hydronephrosisand secondary infection. She is doing better after receiving IVF and post-procedure. Her kidney function appears stable and she does not have signs of ongoing infection. We will continue her Abx for now and touch base with [facility] for their micro studies given her history of recurrent UTIs. If she continues to do well, we will anticipate discharge today. ?? #Sepsis likely 2/2 to UTI vs Hydronephrosis - Continue: Ceftriaxone 2g IV daily - Pain control with Tylenol, per urology post-procedure - Hold anti-hypertensive medications, can consider re-initiating post procedure - Monitor: UCx and BCx - Touch base with [facility] regarding their microbiology studies ?? #DM2 - ISS - Gabapentin 600mg TID #Home Meds: Restart - Carvedilol 3.125mg BID - Lisinopril 5mg daily - Spironolactone 25mg daily #Other - DVT ppx: Lovenox - GI ppx: None indicated - Diet: CHO lvl 2 - Activity: As tolerated # Dispo: Floors Alcon Underwood MD TEAM/PAGER:[phone] Internal Medicine, PGY-1 07/11/2018 9:47 AM Associated attestation - Kelsey Eaton MD - 07/11/2018 1:22 PM EST Attending Attestation Please see Dr. Underwood's note for details of the patient history of presentation and data. I have discussed, reviewed and agree with the documented History, Physical findings, Assessment and Plan of care. 57 y/o with h/o nephrolithiasis, DM, HTN, presenting with abdominal pain, sweats, decreased po intake - found to have UTI in setting of obstructive stone with resultant hydronephrosis. Afebrile, HD stable and not tachycardic. Stent with urology 07/10. WBC downtrended and renal function stable. Plan for dc home today on oral abx. I have examined the patient myself and personally reviewed all studies. In addition, I certify that I am a D-H credentialed attending provider with admitting privileges and that the patient meets or has met medical necessity to require an inpatient IPI level of care meeting a minimum of two midnights or is on the [facility] inpatient only procedure list (status C) due to: UTI and nephrolithiasis with obstruction Juancarlos Watkins RN - 07/10/2018 1:44 PM EST Pt left in no distress, drinking water, janet morris rn Juancarlos Watkins RN - 07/10/2018 1:31 PM EST Pt resting c no issues except mild headache still and left leg pain, chronic for her, is trying massage, one of the ways she alleves pain Juancarlos Watkins RN - 07/10/2018 1:25 PM EST Pt report c sbar to cat. Pt resting c no issues, ready for transfer, still c headache and some left leg pain, normal for her Cristina Recinos RN - 07/10/2018 12:17 PM EST 1210 Break coverage. Juancarlos Watkins RN - 07/10/2018 11:32 AM EST Pt breathing much easier now, in no distress, no complaints at this time Juancarlos Watkins RN - 07/10/2018 11:31 AM EST RAPHAEL Miller at bedside to assess cardiac rhythm and increaded work of breathing Juancarlos Watkins RN - 07/10/2018 11:[address] lassiter to bedside to assess cardiac rhythm, ok, changed lead placement, pt breathing easier now christiana torres civil engineering designer has given additional reversal agent. Janell Wilkins MD - 07/10/2018 7:43 AM EST Urology Inpatient Progress Note HPI: Blossom Samayoa is a 57 yo F with PMH as below who presented to the [facility] ED with nausea and vomiting for the past 1 day. Found on workup at OSH to have leukocytosis to 16, cr 1.04, elevated troponinto 0.8, UA with +protein/mod blood/+nitrites/large LE, CT findings of Right hydronephrosis, large Right UPJ stone and obstructing Right UVJ stone. She received 1g rocephin at [facility]. ?? The patient had been to the [facility] ED last month with complaints of Right flank pain and CT at that time 06/07/2018 showed a similar appearance to CT from earlier today. She was managed with oral pain medications and attempt to pass the smaller ureteral stones spontaneously. She was referred to [facility] and was supposed to be seen in clinic today for consultation but had presented to the ED instead. ?? On presentation to [facility] today, she is well appearing. She has minimal pain at baseline with intermittent pangs of left abdominal pain. She is afebrile. She is sitting in her room and typing on her computer. She denies urinary symptoms (dysuria, hematuria) -- she was not aware that she had an infection. She did note a change in her bowel habits -- she usually has diarrhea, but was not passing bowel movements for the past few days which she attributes to the incarcerated hernia that was reduced earlier today. 24hr events: ?? NAEON ?? Minimal pain ?? Poor sleep d/t roommate ?? NPO for OR today O: Last value Range last 24hrs Temperature Temp: 37 ??C (98.6 ??F) Temp: [36.7 ??C (98.1 ??F)-37.2 ??C (99 ??F)] Heart Rate Heart Rate: 80 Heart Rate: [80-92] Blood Pressure BP: 143/84 BP: (99-151)/(56-90) Respiratory Rate Resp: 16 Resp: [15-21] SpO2 SpO2: 96 % SpO2: [92 %-98 %] 07/09 0701 - 07/10 0700 In: 1314 [P.O.:950; I.V.:314] Out: 450 [Urine:450] Physical Exam: Gen: NAD, AAOx3 CV: regular rate Pulm: normal respirations, no use of accessory muscles, no stridor/audible wheezing Abd: soft, mildly tender LLQ, obese, no guarding or rebound, no peritonitis : No CVA tenderness Neuro: no focal deficits Recent Labs 07/10/18 31907/09/181949 WBC 12.0* 14.1* HGB 12.4 12.5 HCT 36.6 37.4 PLATELET 216 216 PT -- 13.1* INR -- 1.2 PTT -- 26 Recent Labs 07/10/1831907/09/181949 NA 136 138 K 4.0 4.0 CL 99 102 CO2 21* 24 BUN 13 14 CREATININE 0.77 0.76 GLUCOSE -- 206* CALCIUM 9.6 9.8 MAGNESIUM -- 0.65* PHOS -- 2.0* Assessment: Blossom Samayoa is a 57 y.o. presenting in transfer with 1 day history of nausea, vomiting, abdominal pain. Found to have Right obstructing ureteral stones both proximal (2cm at UPJ) and distal (4-5mm at UVJ) and Right hydronephrosis with evidence of infection on UA. Urology consulted for recommendations on management of stones. ?? She is well-appearing on arrival at [facility]. She is afebrile without clinic evidence of acute obstruction. However, imaging indicates right sided obstruction on imaging with a large stone that is not possible to pass spontaneously. Given her elevated white count and infected UA, we would favor placement of a stent. This is scheduled for this AM. ?? Recommendations: -OR today for RIGHT stent -currently NPO for procedure -continue empiric abx for likely UTI, recommend 2g ceftriaxone daily ?? Janell Wilkins MD Consult Day Pager [phone] Alcon Underwood MD - 07/10/2018 7:16 AM EST Hospital Medicine Attending Daily Progress Note Admit Date: 07/09/2018 Pt ID: Blossom Samayoa is a 57 y.o. Female with PMHx significant for obesity, nephrolithiasis, DM2, HTN, and reducible abdominal hernia who presents to [facility] [place] transfer from [facility] with concern for sepsis likely 2/2 to UTI or hydronephrosis/pylonephritis in the setting of long-standing known Calcium O xalate nephrolithiasis and poor PO intake PCP: Albert Zuleta MD Subjective/24hr events: - No acute events overnight - AVSS - Insulin increased to moderate ISS - On OR schedule for 9:30AM ROS: Patient denies fevers, chills, nausea/vomiting, diarrhea/constipation, sob/cp, dysuria. EXAM: Last value Range last 24 hrs Temperature Temp: 36.9 ??C (98.4 ??F) Temp: [36.7 ??C (98.1 ??F)-37.2 ??C (99 ??F)] Heart Rate Heart Rate: 75 Heart Rate: [75-92] Blood Pressure BP: 121/73 BP: (99-151)/(56-90) Respiratory Rate Resp: 15 Resp: [15-21] SpO2 SpO2: 97 % SpO2: [92 %-98 %] Intake/Output Summary (Last 24 hours) at 07/10/2018 0848 Last data filed at 07/10/2018 0848 Gross per 24 hour Intake 1314 ml Output 550 ml Net 764 ml GEN: NAD, obese, well developed, A&Ox3 HEENT: NC/AT, anicteric sclera, MMM, perrl, eomi, op clear, neck supple, no JVD noted CV: RRR, S1, S2, no M/R/G noted. Distal pulses palpable 2+ PULM: CTABL, no wheezes, rales, or ronchi appreciated ABD: obese, soft, mild diffuse TTP, hypoactive bowel sounds, no rebound, no guarding, L sided ventral hernia present. No CVA tenderness EXT: Warm, well perfused. No clubbing, cyanosis, edema noted Skin: No obvious rashes or bruises noted Neuro: Moves all limbs spontaneously, strength grossly normal, sensation grossly intact Lines/Tubes: PIV LABS: Reviewed in eDH. Remarkable for the following: Recent Labs 07/10/1831907/09/181949 WBC 12.0* 14.1* HGB 12.4 12.5 HCT 36.6 37.4 PLATELET 216 216 Recent Labs 07/10/1831907/09/181949 NA 136 138 K 4.0 4.0 CL 99 102 CO2 21* 24 BUN 13 14 CREATININE 0.77 0.76 GLUCOSE -- 206* CALCIUM 9.6 9.8 MAGNESIUM -- 0.65* PHOS -- 2.0* Recent Labs 07/09/181949 AST 32* ALT 25 ALKPHOS 73 BILITOT 1.2 BILIDIR 0.3 MICRO: Microbiology Results (Last 30 days) No results found for the last 720 hours. No results for input(s): URINECULTURE in the last 720 hours. No results for input(s): BLOODCX in the last 720 hours. STUDIES: 07/09/2018 CT A/P??([facility]) Bilateral nephrolithiasis. Severe right hydronephrosis secondary to [...] left hydronephrosis. The left ureter is unremarkable. ?? 06/07/2018 CT A/P -Multiple right ureteral calculi, largest sen proximaly, stones present at right UPJ and right UVJ -bilateral nephrolithiasis -no evidence of bowel obstruction, moderate-sized midline anterior abdominal wall hernia containing nonobstructed loop of small bowel ?? EKG (07/09) Normal sinus rhythm Left bundle branch block Abnormal ECG No previous ECGs available Patient Active Problem List Diagnosis Code ??? [...] ??? CIS - Sarcoidosis ??? Nephrolithiasis N20.0 Medications: Scheduled Meds: ??? insulin lispro 2-8 Units Subcutaneous TID AC ??? sodium chloride 0.9 % 5 mL Intravenous BID ??? enoxaparin 40 mg Subcutaneous Nightly ??? docusate sodium 100 mg Oral BID ??? cefTRIAXone 2 g Intravenous Q24H ??? gabapentin 600 mg Oral TID Continuous Infusions: ??? sodium chloride 0.9% 1,000 mL (07/09/181999) PRN Meds:.sodium chloride 0.9 %, lidocaine, acetaminophen, Glucose 40% oral gel OR dextrose 50% OR glucagon (human recombinant) ASSESSMENT/PLAN: Blossom Samayoa is a 57 y.o. Female with PMHx significant for obesity, nephrolithiasis, DM2, HTN,and reducible abdominal hernia who presents to [facility] [place] transfer from [facility] with concern for sepsis likely 2/2 to UTI or hydronephrosis/pylonephritis in the setting of long-standing known Calcium Oxalatenephrolithiasis and poor PO intake ?? The driving force behind her presentation is likely ureteral obstruction resulting in hydronephrosisand secondary infection. She is doing better after receiving IVF and will be going to the OR today with urology for ureteral stenting vs. PCN. We will continue to assess her clinically after her procedure. ?? #Sepsis likely 2/2 to UTI vs Hydronephrosis - Continue: Ceftriaxone 2g IV daily - Plan for OR with urology today for stenting vs PCN - Pain control with Tylenol, per urology post-procedure - Hold anti-hypertensive medications, can consider re-initiating post procedure - Follow-up: UCx and BCx ?? #DM2 - ISS - Gabapentin 600mg TID #Other - DVT ppx: Lovenox - GI ppx: None indicated - Diet: NPO prior to urologic procedure, then CHO lvl 2 - Activity: As tolerated # Dispo: Pending procedure Alcon Underwood MD TEAM/PAGER:[phone] Internal Medicine, PGY-1 07/10/2018 8:48 AM Associated attestation - Kelsey Eaton MD - 07/10/2018 4:52 PM EST Attending Attestation Please see Dr. Underwood's note for details of the patient history of presentation and data. I have discussed, reviewed and agree with the documented History, Physical findings, Assessment and Plan of care. 57 y/o with h/o nephrolithiasis, DM, HTN, presenting with abdominal pain, sweats, decreased po intake - found to have UTI in setting of obstructive stone with resultant hydronephrosis. On transfer concern for sepsis but had improved by time of transfer - afebrile, HD stable and not tachycardic. Stent with urology today. Renal function stable. Will f/u urine cx from OSH and continue IV abx. Pending course likely dc in next 1-2 days. I have examined the patient myself and personally reviewed all studies. In addition, I certify that I am a D-H credentialed attending provider with admitting privileges and that the patient meets or has met medical necessity to require an inpatient IPI level of care meeting a minimum of two midnights or is on the [facility] inpatient only procedure list (status C) due to: UTI and nephrolithiasis with obstruction Cindi Lopez RN - 07/09/2018 6:22 PM EST Pt arrived to [facility] from OSH via ambulance stretcher around 1700. A&Ox4 PERRLA, afebrile with stable VS. SBP in the 130s-150s, HR in the 80s-90s however with some ST depression and an inverted T- wave noted on tele, EKG obtained see chart for details. denies chest pain. On RA with SPO2 in the [id number], no SOB, appears in no apparent distress. Reporting intermittent abdominal pain for which she states she is able to breathe through. Also reporting neuropathic pain in her feet bilaterally which is baseline for her. Absent bowel sounds on auscultation, reports passing flatus maybe once or twice since the OSH MD reduced my hernia. Denies nausea or emesis since earlier today. MD to evaluate pt at bedside for plan moving forward. documented in this encounter H&P Notes Janell Wilkins MD - 07/10/2018 7:47 AM EST Interval H&P HPI: Blossom Samayoa is a 57 y.o. female who presents today for right ureteral stent. No interval changes. Please see consult note from yesterday for full hx. Physical Exam: General: NAD Cardiac: RRR Respiratory: CTAB Plan: Will proceed with planned surgery - right ureteral stent placement. Booked, marked, and consented. Janell Wilkins MD Alcon Underwood MD - 07/09/2018 6:18 PM EST Images from the original note were not included. Inpatient Hospital Medicine - Admission Note Problem List: Active Hospital Problems Diagnosis ??? Nephrolithiasis Resolved Hospital Problems No resolved problems to display. Active Non-Hospital Problems Diagnosis ??? CIS - Entered not Verified ??? CIS - Cardiomyopathy ??? CIS - Chest pain ??? CIS - Depression ??? CIS - Diabetes Mellitus ??? CIS - Herpes simplex ??? CIS - LBBB ??? CIS - Nephrolithiasis ??? CIS - Obesity ??? CIS - OCD ??? CIS - Osteoma, R ear canal ??? CIS - Sarcoidosis ID: Blossom Samayoa is a 57 y.o. Female with PMHx significant for obesity, nephrolithiasis, DM2, HTN,and reducible abdominal hernia who presents to [facility] as transfer from [facility] with concern for sepsis likely 2/2 to UTI or hydronephrosis/pylonephritis in the setting of long-standing known Calcium Oxalatenephrolithiasis and poor PO intake History of Present Illness: Blossom Samayoa is a 57 y.o. Female with PMHx significant for obesity, nephrolithiasis, DM2, HTN,and reducible abdominal hernia who presents to [facility] as transfer from [facility] with concern for sepsis likely 2/2 to UTI or hydronephrosis/pylonephritis in the setting of long-standing known Calcium Oxalatenephrolithiasis and poor PO intake Ms. Samayoa was in her usual state of health until 2 days prior to admission (07/07) when she woke up and felt like I had the flu. She began developing nausea, vomiting, abdominal pain in her lower middle abdomen, and a slight fever. She began sweating profusely, especially when she vomited. Her last episode of emesis was between 4-5AM on the day prior to presentation. She felt like she was constipated, which is unusual for her given her history of IBS (diagnosed at age 18). Of note, she hashad poor PO intake for the past 3 days. The abdominal pain is described as intermittent, lasts a few seconds, feels like peristalsis is trying to start, but it can't. Resolves spontaneously. Says this pain is not similar to the pain from her prior problems with kidney stones. Pain does not radiate. The day prior to waking up feeling ill (07/06) she had one episode of twisting kidney pain in her anterior abdomen. The abdominal pain was associated with N/V, poor PO intake, and diaphoresis. She has noticed that her urine has become foul smelling and dark over the past few days, associating this with her poor PO intake. She usually drinks 2.5L of water a day. She presented to [facility] where she reported I cannot keep anything down and given her history of abdominal hernia, raised concern for obstruction. Surgery was consulted and the hernia was reduced, but the patient's abdominal pain persisted. A U/A was performed which was concerning for a UTI. Of note, she has had 4 UTIs in the past [address] Chest Abdomen Pelvis at [facility] demonstrated a large stone impacted in the right ureteropelvic junction with severe hydronephrosis. Denies dysuria, changes in frequency, urgency, hematuria, changes in bowel frequency/consistency (she has long-standing diarrhea as a consequence of her IBS), back pain Has known LBBB. Has not used SLNGT since 2008. No histories of heart attack. No SoB, some Roche. Review of Systems: Review of Systems Constitutional: Positive for chills, diaphoresis and fever. Respiratory: Negative for cough and shortness of breath. Cardiovascular: Negative for chest pain and palpitations. Gastrointestinal: Positive for abdominal distention, abdominal pain, nausea and vomiting. Genitourinary: Positive for urgency. Negative for dysuria, flank pain, frequency and hematuria. Neurological: Negative for dizziness and syncope. Past Medical and Surgical History: No past medical history on file. No past surgical history on file. Prior To Admission Medications: Medications Prior to Admission Medication Sig Dispense Refill Last Dose ??? levalbuterol (XOPENEX HFA) 45 mcg/actuation HFA Aerosol Inhaler INHALE TWO PUFFS BY MOUTH EVERY 4 TO 6 HOURS NEEDED 3 Past Week at Unknown time ??? INCRUSE ELLIPTA 62.5 mcg/actuation Disk with Device INHALE ONE PUFF BY MOUTH EVERY DAY 5 Past Week at Unknown time ??? TRULICITY 1.5 mg/0.5 mL Pen Injector INJECT SUBCUTANEOUSLY ONCE WEEKLY FOR BLOOD SUGAR 5 Past Week at Unknown time ??? glipiZIDE-metFORMIN (METAGLIP) 5-500 mg Tablet TAKE TWO TABLETS BY MOUTH TWICE A DAY 3 Past Weekat Unknown time ??? loratadine (CLARITIN) 10 mg Tablet TAKE ONE TABLET BY MOUTH EVERY DAY NEEDED 3 Past Week at Unknown time ??? JANUVIA 100 mg Tablet TAKE ONE TABLET BY MOUTH EVERY DAY 1 Past Week at Unknown time ??? gabapentin (NEURONTIN) 600 mg Tablet TAKE ONE TABLET BY MOUTH THREE TIMES A DAY 1 Past Week at Unknown time ??? furosemide (LASIX) 40 mg Tablet TAKE ONE TABLET BY MOUTH EVERY DAY 3 Past Week at Unknown time ??? spironolactone (ALDACTONE) 25 mg Tablet TAKE ONE TABLET BY MOUTH EVERY DAY 3 Past Week at Unknown time ??? carvedilol (COREG) 3.125 mg Tablet TAKE ONE TABLET BY MOUTH TWICE A DAY 3 Past Week at Unknown time ??? lisinopril (PRINIVIL;ZESTRIL) 5 mg Tablet TAKE ONE TABLET BY MOUTH DAILY 3 Past Week at Unknown time ??? magnesium oxide (MAG-OX) 400 mg (241.3 mg magnesium) Tablet TAKE ONE TABLET BY MOUTH TWICE A DAY1 Past Week at Unknown time ??? potassium chloride (MICRO-K) 10 mEq Capsule, Sustained Release TAKE ONE CAPSULE BY MOUTH EVERY DAY 3 Past Week at Unknown time ??? hydroCODone-acetaminophen (VICODIN) 5-500 mg per tablet Past Week at Unknown time ??? aspirin 325 mg tablet Past Week at Unknown time ??? multivitamin (THERAGRAN) tablet Taking Allergies: Allergies Allergen Reactions ??? Augmentin [Amoxicillin-Pot Clavulanate] Hives and Itching ??? Cis Free Text Allergy Ketamine. CIS - hallucinations ??? Erythromycin Hives and Itching ??? Macrobid [Nitrofurantoin Monohyd/M-Cryst] Causes depression ??? Sulfa (Sulfonamide Antibiotics) Hives Family History: Family History Problem Relation Age of Onset ??? Cancer Father ??? Cancer Sister Social History and [...] ??? Drug use: No ??? Sexual activity: Not on file Other Topics Concern ??? Not on file Social History Narrative ??? Not on file Immunizations: There is no immunization history on file for this patient. Physical Exam: Last Set of Vitals and range of vitals over past 24 hours: Last value Range last 24 hrs Temperature Temp: 37.2 ??C (99 ??F) Temp: [36.7 ??C (98.1 ??F)-37.2 ??C (99 ??F)] Heart Rate Heart Rate: 89 Heart Rate: [89-92] Blood Pressure BP: 124/65 BP: (124-151)/(65-90) Respiratory Rate Resp: 15 Resp: [15-21] SpO2 SpO2: 94 % SpO2: [92 %-98 %] Body mass index is 50.6 kg/m??. Physical Exam Constitutional: She is oriented to person, place, and time. She appears well- developed and well-nourished. She is cooperative. Non-toxic appearance. She does not have a sickly appearance. She does not appear ill. No distress. HENT: Head: Normocephalic and atraumatic. Eyes: EOM are normal. Pupils are equal, round, and reactive to light. Neck: Normal range of motion. Neck supple. Cardiovascular: Normal rate, regular rhythm, S1 normal, S2 normal, normal heart sounds and intact distal pulses. Pulmonary/Chest: Breath sounds normal. No accessory muscle usage. No respiratory distress. Abdominal: Soft. Normal appearance. She exhibits no mass. Bowel sounds are decreased. There is generalized tenderness. There is no rigidity, no rebound, no guarding, no CVA tenderness, no tenderness atMcBurney's point and negative Perez's sign. A hernia is present. Hernia confirmed positive in the ventral area. Neurological: She is alert and oriented to person, place, and time. She has normal strength. No cranial nerve deficit or sensory deficit. GCS eye subscore is 4. GCS verbal subscore is 5. GCS motor subscore is 6. Skin: Skin is warm and dry. She is not diaphoretic. Laboratory (Last 24 Hours): Recent Results (from the past 24 hour(s)) POCT Glucose Result Value Ref Range POC Glucose 209 (H) 65 - 199 mg/dL Lactate, whole blood, send to lab (Leb/CGP) Result Value Ref Range Lactate WB 1.7 0.5 - 2.2 mmol/L Basic Metabolic Panel (non-fasting) Result Value Ref Range Glucose Lvl 206 (H) 65 - 199 mg/dL BUN 14 8 - 18 mg/dL Creatinine 0.76 0.70 - 1.20 mg/dL Sodium 138 135 - 145 mmol/L Potassium 4.0 3.5 - 5.0 mmol/L Chloride 102 98 - 107 mmol/L CO2 24 22 - 31 mmol/L Anion Gap 12 5 - 15 mmol/L Calcium 9.8 8.5 - 10.5 mg/dL eGFR 86 >=60 mL/min/1.73 m?? eGFR 100 >=60 mL/min/1.73 m?? Magnesium Result Value Ref Range Magnesium 0.65 (L) 0.69 - 1.07 mmol/L Phosphorus Result Value Ref Range Phosphorus 2.0 (L) 2.5 - 4.5 mg/dL Hepatic Function Panel Result Value Ref Range Total Protein 6.9 6.1 - 8.0 gm/dL Albumin 3.8 3.2 - 5.2 gm/dL AST 32 (H) 0 - 30 unit/L ALT 25 0 - 30 unit/L Alk Phos 73 40 - 104 unit/L Total Bilirubin 1.2 0.2 - 1.3 mg/dL Bili, Direct 0.3 0.0 - 0.3 mg/dL Prothrombin Time Result Value Ref Range PT 13.1 (H) 9.4 - 12.5 sec INR 1.2 APTT Result Value Ref Range PTT 26 25 - 37 sec Hemogram Result Value Ref Range WBC 14.1 (H) 4.0 - 9.5 x10(3)/mcL RBC 3.96 (L) 4.00 - 5.21 x10(6)/mcL Hemoglobin 12.5 11.7 - 15.5 gm/dL Hematocrit 37.4 35.7 - 45.8 % MCV 94.4 82.6 - 94.4 fL MCH 31.6 27.1 - 32.0 pg MCHC 33.4 31.7 - 35.0 gm/dL Platelets 216 145 - 357 x10(3)/mcL RDWSD 43.2 37.0 - 46.0 fL RDWCV 12.4 11.5 - 14.1 % MPV 9.9 7.6 - 12.9 fL nRBC % Auto 0.0 % nRBC Abs Auto 0.000 0.000 - 0.000 x10(3)/mcL Differential, Automated Result Value Ref Range Neutrophils % 65.5 % Neutr Abs (ANC) 9.26 (H) 1.70 - 6.10 x10(3)/mcL Lymphocytes % 23.9 % Lymphocytes Abs 3.4 (H) 0.9 - 3.2 x10(3)/mcL Monocytes % 8.6 % Monocyte Abs 1.2 (H) 0.3 - 0.9 x10(3)/mcL Eosinophils % 1.3 % Eosinophils Abs 0.2 0.0 - 0.4 x10(3)/mcL Basophils % 0.3 % Basophils Abs 0.0 0.0 - 0.1 x10(3)/mcL Immature Gran % 0.40 % Irina Gran Abs 0.05 (H) 0.00 - 0.04 x10(3)/mcL POCT Glucose Result Value Ref Range POC Glucose 201 (H) 65 - 199 mg/dL Microbiology: Microbiology Results (Last 30 days) No results found for the last 720 hours. Radiology: 07/09/2018 CT A/P ([facility]) Bilateral nephrolithiasis. Severe right hydronephrosis secondary to [...] left hydronephrosis. The left ureter is unremarkable. ?? 06/07/2018 CT A/P -Multiple right ureteral calculi, largest sen proximaly, stones present at right UPJ and right UVJ -bilateral nephrolithiasis -no evidence of bowel obstruction, moderate-sized midline anterior abdominal wall hernia containing nonobstructed loop of small bowel Other Studies: EKG (07/09) Normal sinus rhythm Left bundle branch block Abnormal ECG No previous ECGs available Assessment: Blossom Samayoa is a 57 y.o. Female with PMHx significant for obesity, nephrolithiasis, DM2, HTN,and reducible abdominal hernia who presents to [facility] [place] from [facility] with concern for sepsis likely 2/2 to UTI or hydronephrosis/pylonephritis in the setting of long-standing known Calcium Oxalatenephrolithiasis and poor PO intake The driving force behind her presentation is likely ureteral obstruction resulting in hydronephrosisand secondary infection. She will require IVF for her poor PO intake and resultant BERNARD, antibiotics,and a nephrology consult to manage the obstruction. Plan: #Sepsis likely 2/2 to UTI vs Hydronephrosis - NS @ 100cc/hr for 1L - Ceftriaxone 2g IV daily - Consult to urology, appreciate recs - Pain control with Tylenol - Hold anti-hypertensive medications #DM2 - ISS - Gabapentin 600mg TID ?? Admit to Hospital Medicine Red Team Pager #[phone] ?? DVT Prophylaxis: Lovenox 40mg subQ ?? GI Ppx: None indicated ?? Diet: NPO @ midnight ?? Activity: As tolerated ?? Discussed Advanced Directives and Code Status. The patient wishesto be DNR/DNI. Alcon Underwood MD Internal Medicine, PGY-1 07/09/2018 9:00 PM Associated attestation - Kelsey Eaton MD - 07/10/2018 6:21 AM EST Attending Staff Admission Documentation I have examined the patient myself on 07/09 and reviewed all labs and studies personally. Please see Dr. Underwood's documentation for details of the patient history of presentation and data. I have discussed, reviewed and agree with the documented history with ROS, physical findings, labs/studies, assessment and plan of care. 57 y/o with h/o nephrolithiasis, DM, HTN, presenting with abdominal pain, sweats, decreased po intake - found to have UTI in setting of obstructive stone with resultant hydronephrosis. She is currentlystable hemodynamically. Will treated with IV abx, IVF and appreciate urology evaluation for stone management - planning stent 07/10. documented in this encounter Miscellaneous Notes Care Management - Shanae Barbosa MSW - 07/11/2018 2:57 PM EST Social Work Progress Note ADULT PSYCHIATRIST met with this patient regarding her transportation concerns. Patient reports she did not drive down at recommendation of the hospital. Patient reports she has a friend who can drive her home, but could not come until 930pm and she was concerned about freezing rain. ADULT PSYCHIATRIST reviewed that I did not knowof any other transportation option, but reviewed that she could call 211 to see if they had any options for her. TYRONE Schrader Tone Artist Apprentice Pager [phone] Care Management - Shanae Barbosa MSW - 07/11/2018 11:52 AM EST Social Work Progress Note ADULT PSYCHIATRIST attempted to meet with this patient, however she was not in her room at this time. TYRONE Schrader Tone Artist Apprentice Pager [phone] Plan of Care - nAne Munoz RN - 07/11/2018 6:53 AM EST Problem: Patient Care Overview Goal: Plan of Care Review Outcome: Ongoing (Interventions Implemented as Appropriate) 07/11/18 0525 Coping/Psychosocial Plan Of Care Reviewed With patient Plan of Care Review Progress improving OUTCOME EVALUATION NOTE: OUTCOME SUMMARY: Xferred from ISCU to Rm 149a, pt verbalizing frustration & anger about being moved in the middleof the night to a cubicle. Asking to leave but states she does not have a ride. VSS on RA. Reports2/10 neuropathic pain to bilateral feet & generalized bone pain rated 6/10, prn tylenol given x1 & 1x dose Toradol w/ fair effect. Denies CP, SOB, n/v. Baseline numbness & tingling to bilateral feet. Voiding overnight - urine remains nathanael/tea colored, see I&O for output. Sleeping intermittently between care. Call leigh maintained within reach, able to make needs known. Will continueto monitor & notify MD of any changes. PLAN MOVING FORWARD: IV abx Monitor labs & VS Monitor urinary output Pain management Discharge planning INDIVIDUALIZED FALL PREVENTION INTERVENTIONS: Patient-specific fall risk factors per assessment: [current deficits]: High fall risk - generalized weakness, medical equipment Assistance [level of assistance required for transfers and ambulation]: SBA w/ cane Supervision [direct monitoring required during toileting and ADLs]: Eyes on/hands on Surveillance [continuous indirect monitoring]: Refuses bed alarm, purposeful hourly rounding, room near unit station Patient-specific fall prevention interventions for sensory deficits provided, if applicable: [X] Yes CPG GOAL OUTCOME EVALUATION: Plan of Care - Cindi Lopez RN - 07/10/2018 5:40 PM EST Problem: Patient Care Overview Goal: Plan of Care Review Outcome: Ongoing (Interventions Implemented as Appropriate) 07/10/18 1726 Coping/Psychosocial Plan Of Care Reviewed With patient Plan of Care Review Progress progress toward functional goals is gradual OUTCOME EVALUATION NOTE: OUTCOME SUMMARY: Pt remains A&Ox4, PERRLA, afebrile with stable VS. SBP in the 120s, denies chest pain. On RA while awake with SPO2 in the upper 90s however does need 1-2L via NC while sleeping as her SPO2 dips into the upper 80s. Denies SOB, clear lungs on auscultation, just diminished in the bases bilaterally. Reporting neuropathy in her feet for pain as well as intermittent headaches, left hip pain, and intermittent abdominal pain. Given PRN tylenol and Toradol with good effect. Abdomen is tender in all quadswith hypoactive BS, denies nausea, passing flatus and reports a small BM this AM. Went this morning as well for cysto stent placement on her right, now back from OR with minimal complaints. Has since vo ided spontaneously, urine still appears concentrated, cloudy, tea colored, and with sediment. Tolerating her carb-control diet. Blood sugars have been in the 200s-300s all day, treating per sliding scale. Ambulating with a cane to the bathroom and standby assistance. Will continue to monitor. PLAN MOVING FORWARD: tx to floor pending bed availability Monitor for s/s of increasing infection Treat/monitor pain INDIVIDUALIZED FALL PREVENTION INTERVENTIONS: Patient-specific fall risk factors per assessment: [current deficits]: IVs, SPO2 cord, generalized weakness Assistance [level of assistance required for transfers and ambulation]: Cane and a stand by assist Supervision [direct monitoring required during toileting and ADLs]: Eyes on Surveillance [continuous indirect monitoring]: Hourly rounding, Masimo, call leigh in reach Patient-specific fall prevention interventions for sensory deficits provided, if applicable: [X] Yes CPG GOAL OUTCOME EVALUATION: Op Note - Janell Wilkins MD - 07/10/2018 5:24 PM EST [facility] [place]ative Note Patient Name: Blossom Samayoa : [id number] MR#: [id number] Case Date: 07/10/2018 Surgeon: Surgeon(s) and Role: * Viky Sears MD - Primary * Janell Wilkins MD - Resident-Surgeon Masoud Preoperative diagnosis: Rt ureteral stone Postoperative diagnosis: Rt ureteral stone Procedure(s) (LRB): CYSTO, STENT PLACEMENT (WRVU 2.82) (Right) CYSTO, RETROGRADE, URETEROPYELOGRAPHY (WRVU 2.37) (Right) Findings: Right hydronephrosis Anesthesia: General Estimated Blood Loss: none Specimens removed during surgery: Right renal pelvis urine Drains: 6 fr variable stent in right ureter Surgical Closure: none - endoscopic Disposition: awakened from anesthesia, extubated and taken to the recovery room in a stable condition, having suffered no apparent untoward event. Condition: doing well without problems (Please see the Surgical Encounter Summary for any Implant and Specimen details pertinent to this patient.) HPI/Surgical Indications: Blossom Samayoa is a 57 y.o. female with right hydronephrosis 2/2 right obstructing 2cm UPJ stone. Presents for right ureteral stent placement. Procedure Description: The patient was identified in the ISCU. Consent was obtained. The correct side of the procedure was marked (right). The patient was taken to the operating room and placed supine on the operating table.General anesthesia was induced. The patient was then moved to the lithotomy position and prepped anddraped in the usual sterile fashion. A timeout was performed involving all members of the OR team confirming the patient's identity and planned procedure. Preoperative antibiotics were administered. A 22 Fr rigid cystoscope was inserted into the bladder. A r5fr pollack was inserted into the right ureteral orifice and a retrograde was taken showing a filling defect at the expected level of the stone. We attempted to pass a guide wire but were unsuccessful. However, an angled glide wire was able matias passed beyond the stone. The 5 fr pollack was advanced to the renal pelvis and a urine sample wasobtained. The pollack was removed leaving the wire in place. A 6 Fr variable ureteral stent was passed over the wire. The proximal coil was visualized on fluoroscopy to be within the renal pelvis, and the distal coil was seen with direct visualization in the bladder. The bladder was emptied. The cystoscope was removed. The patient tolerated the procedure well and was awakened from anesthesia with no adverse events. The patient was taken to the recovery area in stable condition. Dr. Sears, the attending surgeon, was present for the entire procedure. Infection Bundle used? N/A Associated attestation - Viky Sears MD - 07/19/2018 9:57 PM EST Attestation: Case Date: 07/10/2018 I was present and I participated during the entire procedure (does not need to include opening and closing). VIKY SEARS MD 07/19/2018 Initial Assessments - Lisseth Becker RN - 07/10/2018 4:06 PM EST Office of Care Management Initial Assessment Lisseth Becker RN reviewed record and discussed patient with Care Team. Source of Information: pt Introduced self/reviewed role; services accepted. Reason for Hospitalization: Reason for Admission as Stated by Patient: Transferred from [facility] for possible surgery ?? 57 y/o with h/o nephrolithiasis, DM, HTN, presenting with abdominal pain, sweats, decreased po intake - found to have UTI in setting of obstructive stone with resultant hydronephrosis. She is currentlystable hemodynamically. Will treated with IV abx, IVF and appreciate urology evaluation for stone management - planning stent 07/10.Janell Wilkins MD ?? No past medical history on file. Hospitalizations Within the Past 30 Days: na Anticipated Length Of Stay (If known): Expected Length of Hospitalization: 3 Current Decision-Making Capacity: self, a,ox4 Advance Care Planning: none written wants to make her sister Mona Samayoa [phone] her MPOA ADULT PSYCHIATRIST consult placed for AD completion Current Coping/Education/Information Needs: CM explained VNA/outpt herpay Current Functional Ability: SBA Functional Status Prior to Admission: drives self, Has FWW and cane at home. 100%adl lacy Home Environment: .Lives alone in first floor apt 3 steps yard to door Social & Family Supports/Community Resources: lists several friend to assist her at home Behavioral Health History: denied Substance Use/Abuse: see below DAST 10 In the past year have you used an illegal drug or used a prescription medication for non-medical reaons?: No AUDIT In the past year have you had 4 or more drinks a day containing alcohol?: No Other Pertinent/Service Specific Information: na Health/Prescription Coverage: Primary Insurance: MEDICARE Secondary Insurance: N/A Prescription Coverage: no Preferred Pharmacy: [facility] Primary Care Provider: Albert Zuleta MD [phone] Patient/Caregiver Goals of Treatment: home with MD followup Potential Needs for Transition of Care: Rehab/SNF: declned Home Health: declined DME: owns fFW[employer] andcane Dialysis: na Community Resources: na Transportation: will need help with a ride Anticipated Barriers to Discharge/Special Considerations: na Assessment: [id number] in for Right ureteral stent placement.Declined services needed. Plan: A member of the Care Management team will continue to monitor progress, follow for continuity of care and assist with transition of care planning. Lisseth Becker RN Pager: [phone] Brief Op Note - Viky Sears MD - 07/10/2018 10:47 AM EST Brief Operative Note Patient Name: Blossom Samayoa : [id number] MR#: [id number] Case Date: 07/10/2018 Surgeon: Surgeon(s) and Role: * Viky Sears MD - Primary * Janell Wilkins MD - Resident-Surgeon Masoud Preoperative diagnosis: Rt ureteral stone Postoperative diagnosis: Rt ureteral stone Procedure(s) (LRB): CYSTO, STENT PLACEMENT (WRVU 2.82) (Right) CYSTO, RETROGRADE, URETEROPYELOGRAPHY (WRVU 2.37) (Right) Anesthesia: General Findings: Rt hydronephrosis Complications: none Intake: Intraprocedure Crystalloid Total None Transfusion No data found. Output: Estimated Blood Loss: none Urine Output:: (no urine output recorded) Other Output: (no other output recorded) Drains: 6 - variable Specimens removed during surgery: None Disposition: awakened from anesthesia, extubated and taken to the recovery room in a stable condition, having suffered no apparent untoward event. Condition: doing well without problems Attestation: Case Date: 07/10/2018 I was present and I participated during the entire procedure (does not need to include opening and closing). (Please see the Surgical Encounter Summary for any Implant and Specimen details pertinent to this patient.) Plan of Care - Maxine May RN - 07/10/2018 3:58 AM EST Problem: Patient Care Overview Goal: Plan of Care Review 07/10/18 0240 Coping/Psychosocial Plan Of Care Reviewed With patient Plan of Care Review Progress no change OUTCOME EVALUATION NOTE: OUTCOME SUMMARY: Patient is A&Ox4, endorses mild/moderate foot(neuropathic) and back discomfort this evening, medicated with one time Ketorolac with good effect. NSR with LBBB, normotensive. Lungs are CTAB, sats >92% on RA. Patient up to BR with SBA, voiding dark tea colored odorous urine, UA collected and sentto lab. Will continue to encourage and monitor. PLAN MOVING FORWARD: Monitor labs, I/O, pain management INDIVIDUALIZED FALL PREVENTION INTERVENTIONS: Patient-specific fall risk factors per assessment: [current deficits]: lines Assistance [level of assistance required for transfers and ambulation]: 1A/SBA Supervision [direct monitoring required during toileting and ADLs]: 1 person Surveillance [continuous indirect monitoring]: German, frequent rounding, room near nurses station,bed alarm Patient-specific fall prevention interventions for sensory deficits provided, if applicable: [X] N/A CPG GOAL OUTCOME EVALUATION: Consult Note - Viky Sears MD - 07/09/2018 7:18 PM EST UROLOGY CONSULT NOTE Reason for Consultation: right hydronephrosis, right ureteral stones History of Present Illness: Blossom Samayoa is a 57 yo F with PMH as below who presented to the [facility] ED with nausea and vomiting for the past 1 day. Found on workup at OSH to have leukocytosis to 16, cr 1.04, elevated troponinto 0.8, UA with +protein/mod blood/+nitrites/large LE, CT findings of Right hydronephrosis, large Right UPJ stone and obstructing Right UVJ stone. She received 1g rocephin at [facility]. The patient had been to the [facility] ED last month with complaints of Right flank pain and CT at that time 06/07/2018 showed a similar appearance to CT from earlier today. She was managed with oral pain medications and attempt to pass the smaller ureteral stones spontaneously. She was referred to [facility] and was supposed to be seen in clinic today for consultation but had presented to the ED instead. On presentation to ISCU today, she is well appearing. She has minimal pain at baseline with intermittent pangs of left abdominal pain. She is afebrile. She is sitting in her room and typing on her computer. She denies urinary symptoms (dysuria, hematuria) -- she was not aware that she had an infection. She did note a change in her bowel habits -- she usually has diarrhea, but was not passing bowel movements for the past few days which she attributes to the incarcerated hernia that was reduced earlier today. Past Medical/Surgical History: No past medical history on file. Patient Active Problem List Diagnosis Code ??? [...] ??? CIS - Sarcoidosis ??? Nephrolithiasis N20.0 No past surgical history on file. Social History: Social History Socioeconomic History ??? [...] ??? Drug use: No ??? Sexual activity: Not on file Other Topics Concern ??? Not on file Social History Narrative ??? Not on file Family History: Family History Problem Relation Age of Onset ??? Cancer Father ??? Cancer Sister Review of Systems: Review of Systems Constitutional: Negative fevers/chills HEENT: Negative for URI Respiratory: Negative for cough, chest tightness, shortness of breath and wheezing. Cardiovascular: Negative for chest pain, palpitations and leg swelling. Gastrointestinal: +left sided abdominal pain 2/2 hernia, + diarrhea, though recently no passage of stool, +n/v Genitourinary: +minimal flank pain Musculoskeletal: +obesity Neurological: No neuro changes Hematological: Negative for adenopathy. Takes ASA 325mg Psychiatric/Behavioral: No depression Medications: No current facility-administered medications on file prior to encounter. Current Outpatient Medications on File Prior to Encounter Medication Sig Dispense Refill ??? levalbuterol (XOPENEX [...] 325 mg tablet ??? multivitamin (THERAGRAN) tablet Physical Exam: Temp: [36.7 ??C (98.1 ??F)] Heart Rate: [89-92] Resp: [15-21] BP: (132-151)/(80-90) SpO2: [92 %-98 %] Heart Rate from SPO2: [89 bpm-91 bpm] General: well appearing, NAD HEENT: NC/AT Card: RRR Lungs: CTA bilaterally Abd: obese, soft, TTP in LLQ and RUQ : no CVA tenderness Extrem: no LE edema Labs: No results for input(s): WBC, HGB, PLATELET, NA, K, CL, CO2, BUN, CREATININE, CALCIUM, MAGNESIUM, INR, PTT in the last 72 hours. Invalid input(s): PHOSPHORUS, CARDIACENZYMES No results found for: SPGRAVITYUA, PHUADIP, PROTEINUADIP, GLUCOSEU, KETONESUA, UROBILIUADIP, BLOODUADIP, NITRATEUA, LEUKOESTERUA, WBCUA, BILIRUBINUA Microbiology: Cultures pending Imagin07/09/2018 CT A/P ([facility]) Bilateral nephrolithiasis. Severe right hydronephrosis secondary to an impacted stone at the ureteropelvic junction as described [below]. There is a large incarcerated mid to distal small bowel hernia Atherosclerotic changes in the vasculature in the thorax abdomen and pelvis. No vascular acute abnormality is suggested. There are severe hydronephrotic changes involving the [...] left hydronephrosis. The left ureter is unremarkable. 06/07/2018 CT A/P -Multiple right ureteral calculi, largest sen proximaly, stones present at right UPJ and right UVJ -bilateral nephrolithiasis -no evidence of bowel obstruction, moderate-sized midline anterior abdominal wall hernia containing nonobstructed loop of small bowel Assessment: Blossom Samayoa is a 57 y.o. presenting in transfer with 1 day history of nausea, vomiting, abdominal pain. Found to have Right obstructing ureteral stones both proximal (2cm at UPJ) and distal (4-5mm at UVJ) and Right hydronephrosis with evidence of infection on UA. Urology consulted for recommendations on management of stones. She is well-appearing on arrival at [facility]. She is afebrile without clinic evidence of acute obstruction. However, imaging indicates right sided obstruction on imaging with a large stone that is not possible to pass spontaneously. Given her elevated white count and infected UA, we would favor placement of a stent. This can be performed on an urgent (within 24 hours) basis. We will book her for the OR tomorrow. I discussed with the patient Dr. Sears. Recommendations: -book for cysto stent placement on 07/10/18 -NPO at midnight -continue empiric abx for likely UTI, recommend 2g ceftriaxone daily -IVF replacement given likely dehydration 2/2 vomiting/poor po intake -if patient decompensates overnight, contact urology resident national expansion recruiter for more emergent stent placement Janell Wilkins MD I reviewed this case with Dr. Wilkins. I reviewed the CT scan and agree with the assessment and plan. documented in this encounter Plan of Treatment Upcoming Encounters Date Type Specialty Care Team Description 03/15/2022 Office Visit Neurology Ryann Barfield APRN [facility] RICHARD SANDHU 0375 03/23/2022 Appointment Radiology Hailey Mcclendon MD [facility] RICHARD Sanders 0375 03/23/2022 Laboratory Appointment Lab 03/23/2022 Office Visit Gastroenterology Hailey Mcclendon MD [facility] RICHARD Sanders 0375 05/23/2022 Procedure visit Maxillofacial Surgery Corby Montes MD [facility] RICHARD Sanders 0375 documented as of this encounter Procedures Procedure Name Priority Date/Time Associated Comments Diagnosis IMPLANTABLE DEVICES SCAN 07/12/2018 12:00 Results for this AM EST procedure are i n the results section. POCT GLUCOSE Routine 07/11/2018 4:06 Results for this PM EST procedure are i n the results section. POCT GLUCOSE Routine 07/11/2018 11:28 Results for this AM EST procedure are i n the results section. HEMOGRAM Routine 07/11/2018 7:43 Results for this AM EST procedure are i n the results section. DIFFERENTIAL, AUTOMATED Routine 07/11/2018 7:43 R esults for this AM EST procedure are i n the results section. CBC (WITH DIFF) Routine 07/11/2018 7:43 AM EST BASIC METABOLIC PANEL Routine 07/11/2018 7:43 Res ults for this (NON-FASTING) AM EST procedure are in the results section. POCT GLUCOSE Routine 07/11/2018 6:58 Results for this AM EST procedure are i n the results section. POCT GLUCOSE Routine 07/10/2018 8:04 Results for this PM EST procedure are i n the results section. POCT GLUCOSE Routine 07/10/2018 1:57 Results for this PM EST procedure are i n the results section. POCT GLUCOSE Routine 07/10/2018 12:31 Results for this PM EST procedure are i n the results section. POCT GLUCOSE Routine 07/10/2018 11:14 Results for this AM EST procedure are i n the results section. XR FLUORO NO RAD <1HR - OR Routine 07/10/2018 11:10 Results for this USE AM EST procedure are i n the results section. CYSTO,RETROGRADE,URETEROPY Routine 07/10/2018 10:46 Ureteral s tone ELOGRAPHY AM EST URINE CULTURE Routine 07/10/2018 10:37 Results fo r this AM EST procedure are i n the results section. CYSTO, RETROGRADE, 07/10/2018 9:56 Ureteral stone URETEROPYELOGRAPHY (WRVU AM EST 2.37) CYSTO, STENT PLACEMENT 07/10/2018 9:56 Ureteral stone (WRVU 2.82) AM EST POCT GLUCOSE Routine 07/10/2018 8:07 Results for this AM EST procedure are i n the results section. POCT GLUCOSE Routine 07/10/2018 4:16 Results for this AM EST procedure are i n the results section. BMP W/FASTING GLUCOSE Routine 07/10/2018 3:20 Res ults for this AM EST procedure are i n the results section. HEMOGRAM Routine 07/10/2018 3:20 Results for this AM EST procedure are i n the results section. DIFFERENTIAL, AUTOMATED Routine 07/10/2018 3:20 R esults for this AM EST procedure are i n the results section. CBC (WITH DIFF) Routine 07/10/2018 3:20 AM EST TRIGLYCERIDE Routine 07/10/2018 3:20 Results for this AM EST procedure are i n the results section. LDL CHOLESTEROL, DIRECT Routine 07/10/2018 3:20 R esults for this AM EST procedure are i n the results section. HDL/CHOL PROFILE Routine 07/10/2018 3:20 Results for this AM EST procedure are i n the results section. HEMOGLOBIN A1C Routine 07/10/2018 3:20 Results fo r this AM EST procedure are i n the results section. POCT GLUCOSE Routine 07/10/2018 12:07 Results for this AM EST procedure are i n the results section. URINALYSIS MICROSCOPIC Routine 07/09/2018 10:21 R esults for this EXAM PM EST procedure are i n the results section. URINALYSIS WITH REFLEX Routine 07/09/2018 10:21 R esults for this CULTURE PM EST procedure are i n the results section. URINE CULTURE Routine 07/09/2018 10:21 Results fo r this PM EST procedure are i n the results section. BLOOD CULTURE STAT 07/09/2018 8:03 Results for this PM EST procedure are i n the results section. POCT GLUCOSE Routine 07/09/2018 8:01 Results for this PM EST procedure are i n the results section. HEMOGRAM Routine 07/09/2018 7:50 Results for this PM EST procedure are i n the results section. DIFFERENTIAL, AUTOMATED Routine 07/09/2018 7:50 R esults for this PM EST procedure are i n the results section. LACTATE, WHOLE BLOOD, SEND Routine 07/09/2018 7:50 Results for this TO LAB [place] [place] PM EST procedure are in the results section. BLOOD CULTURE STAT 07/09/2018 7:50 Results for this PM EST procedure are i n the results section. APTT Routine 07/09/2018 7:50 Results for this PM EST procedure are i n the results section. PROTHROMBIN TIME Routine 07/09/2018 7:50 Results for this PM EST procedure are i n the results section. CBC (WITH DIFF) Routine 07/09/2018 7:50 PM EST PHOSPHORUS Routine 07/09/2018 7:50 Results for this PM EST procedure are i n the results section. MAGNESIUM Routine 07/09/2018 7:50 Results for this PM EST procedure are i n the results section. HEPATIC FUNCTION PANEL Routine 07/09/2018 7:50 Re sults for this PM EST procedure are i n the results section. BASIC METABOLIC PANEL Routine 07/09/2018 7:50 Res ults for this (NON-FASTING) PM EST procedure are in the results section. EKG 12-LEAD STAT 07/09/2018 6:18 Sepsis, due to Results fo r this PM EST unspecified procedure are i n organism the results section. POCT GLUCOSE Routine 07/09/2018 5:06 Results for this PM EST procedure are i n the results section. URINE HOLD Routine 07/09/2018 3:05 Results for this AM EST procedure are i n the results section. documented in this encounter Results SCAN DOC: IMPLANTABLE DEVICES (07/12/2018 12:00 AM EST) Narrative 07/12/2018 12:00 AM EST This result has an attachment that is no t available. Ordered by an unspecified provider. Scanning Provider MEDIA MGR SCAN EXT ORDR/RSLT POCT Glucose (07/11/2018 4:06 PM EST) athologist Signature POC Glucose 178 65 - 199 [facility] mg/dL [facility] Comment: Supplemental ranges: <140 mg/dL before meals <180 mg/dL all other times of the day Specimen Anatomical Collection Method Collection Time Receive d Time (Source) Location / / Volume Laterality Blood specimen 07/11/2018 4:06 PM 018 4:06 (specimen) EST PM EST Kelsey Eaton MD POINT OF CARE TEST ORDERABLE S Performing Organization Address City/State/[place] [address] (ABNORMAL) POCT Glucose (07/11/2018 11:28 AM EST) athologist Signature POC Glucose 220 (H) 65 - 199 [facility] mg/dL [facility] Comment: Supplemental ranges: <140 mg/dL before meals <180 mg/dL all other times of the day Specimen Anatomical Collection Method Collection Time Receive d Time (Source) Location / / Volume Laterality Blood specimen 07/11/2018 11:28 8 (specimen) AM EST 11:28 AM EST Kelsey Eaton MD POINT OF CARE TEST ORDERABLE S Performing Organization Address City/State/[place] [address] Differential, Automated (07/11/2018 7:43 AM EST) athologist Signature Neutrophils % 52.7 % [facility] Neutr Abs (ANC) 4.50 1.70 - [facility] 6.10 [facility] x10(3)[facility] LABORATORY Lymphocytes % 35.9 % [facility] Lymphocytes Abs 3.1 0.9 - 3.2 [facility] x10(3)/[facility] LABORATORY Monocytes % 8.1 % [facility] Monocyte Abs 0.7 0.3 - 0.9 [facility] x10(3)/[facility] LABORATORY Eosinophils % 2.7 % [facility] Eosinophils Abs 0.2 0.0 - 0.4 [facility] x10(3)/[facility] LABORATORY Basophils % 0.2 % [facility] Basophils Abs 0.0 0.0 - 0.1 [facility] x10(3)/[facility] LABORATORY Immature Gran % 0.40 % [facility] Comment: Immature granulocytes(IG's)percentage an d absolute count will include metamyelocytes, myelocytes, and promyelo cytes. Blood smears from CBCs yielding IG's will be scanned manually for concor dance. If this scan disagrees with the automated IG or if promyelocytes are not ed, a manual differential will be performed. Irina Gran Abs 0.03 0.00 - 0.04 x10(3)/[facility] LABORATORY Specimen Anatomical Collection Method Collection Time Receive d Time (Source) Location / / Volume Laterality Blood specimen 07/11/2018 7:43 AM 018 7:49 (specimen) EST AM EST Resulting Agency Comment Spec In Lab Alcon Underwood MD HEMATOLOGY ORDERABLES Performing Organization Address City/State/[place] [address] (ABNORMAL) Hemogram (07/11/2018 7:43 AM EST) Analysis Performed At Patho logist Time Signature WBC 8.5 4.0 - 9.5 [facility] x[facility](3[facility] LABORATORY RBC 3.41 (L) 4.00 - [place] 5.21 [facility] x10(6)/[facility] LABORATORY Hemoglobin 10.7 (L) 11.7 - [facility] 15.5 gm/dL [facility] Hematocrit 32.4 (L) 35.7 - [facility] 45.8 % [facility] MCV 95.0 (H) 82.6 - [facility] 94.4 [facility] LABORATORY MCH 31.4 27.1 - [place] 32.0 pg [facility] MCHC 33.0 31.7 - [facility] 35.0 gm/dL [facility] Platelets 155 145 - 357 [facility] x10(3)/[facility] LABORATORY RDWSD 43.1 37.0 - [place] 46.0 [facility] LABORATORY RDWCV 12.4 11.5 - [place] 14.1 % [facility] MPV 9.9 7.6 - 12.9 [facility] LABORATORY nRBC % Auto 0.0 % [facility] nRBC Abs Auto 0.000 0.000 - [facility] 0.000 [facility] x10(3)/[facility] LABORATORY Specimen Anatomical Collection Method Collection Time Receive d Time (Source) Location / / Volume Laterality Blood specimen 07/11/2018 7:43 AM 018 7:49 (specimen) EST AM EST Resulting Agency Comment Spec In Lab Alcon Underwood MD HEMATOLOGY ORDERABLES Performing Organization Address City/State/[place] [address] (ABNORMAL) Basic Metabolic Panel (non-fasting) (07/11/2018 7:43 AM EST) P athologist Signature Glucose Lvl 202 (H) 65 - 199 [facility] mg/dL [facility] Comment: Diabetes: >=200 mg/dL plus symp toms BUN 9 8 - 18 mg/dL [facility] Creatinine 0.76 0.70 - 1.20 mg/dL [facility] Sodium 135 135 - 145 mmol/L [facility] Potassium 4.0 3.5 - 5.0 mmol/L [facility] Comment: Please note: ??Patients with WBC >100,00 0 may have falsely elevated Potassium levels. ??For accurate Potassium quantif ication in these patients send serum separator tube (gold top) for subsequent determinations. ??Contact the Clinical Chemistry Laboratory if there are any qu estions. Chloride 101 98 - 107 mmol/L [facility] CO2 23 22 - 31 mmol/L [facility] Anion Gap 11 5 - 15 mmol/L [facility] Calcium 9.6 8.5 - 10.5 mg/dL [facility] Estimated GFR 86 >=60 mL/min/1.73 m?? [facility] Comment: The eGFR was calculated using the CKD-EP I equation. As with all creatinine based estimates of kidney function, eGFR values calculated with the CKD-EPI equation are not accurate in patients wi th acute kidney failure, extremes of body mass or the acutely ill. http://[employer]/[facility] eGFR 100 >=60 mL/min/1.73 m?? [facility] Comment: The eGFR was calculated using the CKD-EP I equation. As with all creatinine based estimates of kidney function, eGFR values calculated with the CKD-EPI equation are not accurate in patients wi th acute kidney failure, extremes of body mass or the acutely ill. http://[employer]/[facility] Specimen Anatomical Collection Method Collection Time Receive d Time (Source) Location / / Volume Laterality Blood specimen 07/11/2018 7:43 AM 018 7:49 (specimen) EST AM EST Resulting Agency Comment Spec In Lab Kelsey Eaton MD CHEMISTRY ORDERABLES Performing Organization Address City/State/[place] [address] (ABNORMAL) POCT Glucose (07/11/2018 6:58 AM EST) athologist Signature POC Glucose 206 (H) 65 - 199 [place] mg/dL [facility] Comment: Supplemental ranges: <140 mg/dL before meals <180 mg/dL all other times of the day Specimen Anatomical Collection Method Collection Time Receive d Time (Source) Location / / Volume Laterality Blood specimen 07/11/2018 6:58 AM 018 6:58 (specimen) EST AM EST Kelsey Eaton MD POINT OF CARE TEST ORDERABLE S Performing Organization Address City/[facility]/ZIP [place] [address] (ABNORMAL) POCT Glucose (07/10/2018 8:04 PM EST) athologist Signature POC Glucose 223 (H) 65 - 199 [place] mg/dL [facility] Comment: Supplemental ranges: <140 mg/dL before meals <180 mg/dL all other times of the day Specimen Anatomical Collection Method Collection Time Receive d Time (Source) Location / / Volume Laterality Blood specimen 07/10/2018 8:04 PM 018 8:04 (specimen) EST PM EST Kelsey Eaton MD POINT OF CARE TEST ORDERABLE S Performing Organization Address City/State/[place] [address] POCT Glucose (07/10/2018 1:57 PM EST) athologist Signature POC Glucose 197 65 - 199 [place] [place] mg/dL [facility] Comment: Supplemental ranges: <140 mg/dL before meals <180 mg/dL all other times of the day Specimen Anatomical Collection Method Collection Time Receive d Time (Source) Location / / Volume Laterality Blood specimen 07/10/2018 1:57 PM 018 1:57 (specimen) EST PM EST Kelsey Eaton MD POINT OF CARE TEST ORDERABLE S Performing Organization Address City/[facility]/[place]IP [place] [address] (ABNORMAL) POCT Glucose (07/10/2018 12:31 PM EST) P athologist Signature POC Glucose 232 (H) 65 - 199 [facility]dL [facility] Comment: Supplemental ranges: <140 mg/dL before meals <180 mg/dL all other times of the day Specimen Anatomical Collection Method Collection Time Receive d Time (Source) Location / / Volume Laterality Blood specimen 07/10/2018 12:31 8 (specimen) PM EST 12:31 PM EST Kelsey Eaton MD POINT OF CARE TEST ORDERABLE S Performing Organization Address [facility]/ZIP [place] [address] (ABNORMAL) POCT Glucose (07/10/2018 11:14 AM EST) P athologist Signature POC Glucose 238 (H) 65 - 199 [facility] mg/dL [facility] Comment: Supplemental ranges: <140 mg/dL before meals <180 mg/dL all other times of the day Specimen Anatomical Collection Method Collection Time Receive d Time (Source) Location / / Volume Laterality Blood specimen 07/10/2018 11:14 8 (specimen) AM EST 11:14 AM EST Kelsey Eaton MD POINT OF CARE TEST ORDERABLE S Performing Organization Address City/[facility]/ZIP [place] [address] XR Fluoro No Rad <1Hr - OR Use (07/10/2018 11:10 AM EST) Specimen (Source) Anatomical Location Collection Method / Collectio n Time Received Time / Laterality Volume Narrative DH RAD - 07/10/2018 11:10 AM EST This order does not need a radiologist i nterpretation. ?? Viky Sears MD IMG FLUORO ORDERABLES Performing Organization Address City/[facility]/ZIP Code Phon e Number RAD RAD [place], [place] Urine culture Urine (07/10/2018 10:37 AM EST) [facility] Method Time Signature Urine Culture No growth [place] (Less than [facility] 1,000 [facility] cfu/ml). LABORATORY Specimen Anatomical Collection Method Collection Time Receive d Time (Source) Location / / Volume Laterality Urine specimen 07/10/2018 10:37 8 (specimen) AM EST 11:02 AM EST Comment: RIGHT RENAL PELVIS Resulting Agency Comment Spec In Lab Viky Sears MD MICROBIOLOGY - GENERAL ORDER ELINA Performing Organization Address City/State/ZIP Code Phon e Number [address] (ABNORMAL) POCT Glucose (07/10/2018 8:07 AM EST) P athologist Signature POC Glucose 235 (H) 65 - 199 [facility]/dL [facility] Comment: Supplemental ranges: <140 mg/dL before meals <180 mg/dL all other times of the day Specimen Anatomical Collection Method Collection Time Receive d Time (Source) Location / / Volume Laterality Blood specimen 07/10/2018 8:07 AM 018 8:07 (specimen) EST AM EST Kelsey Eaton MD POINT OF CARE TEST ORDERABLE S Performing Organization Address City/[facility]/ZIP Code Phon e Number [address] (ABNORMAL) POCT Glucose (07/10/2018 4:16 AM EST) P athologist Signature POC Glucose 202 (H) 65 - 199 [facility] mg/dL [facility] Comment: Supplemental ranges: <140 mg/dL before meals <180 mg/dL all other times of the day Specimen Anatomical Collection Method Collection Time Receive d Time (Source) Location / / Volume Laterality Blood specimen 07/10/2018 4:16 AM 018 4:16 (specimen) EST AM EST Kelsey Eaton MD POINT OF CARE TEST ORDERABLE S Performing Organization Address City/[facility]/ZIP Code Phon e Number [address] (ABNORMAL) BMP w/fasting Glucose (07/10/2018 3:20 AM EST) athologist Signature Glucose 186 (H) 65 - 99 [facility] Fasting mg/dL [facility] Comment: ?Fasting* Glucose Interpretive C [...] of Diabetes Mellitus, Position Statement from the [place] [employer]. ??Diabete s Care, Volume 33, Supplement 1, Jul 2009 BUN 13 8 - 18 mg/dL [facility] Creatinine 0.77 0.70 - 1.20 mg/dL [facility] Sodium 136 135 - 145 mmol/L [facility] Potassium 4.0 3.5 - 5.0 mmol/L [facility] Comment: Please note: ??Patients with WBC >100,00 0 may have falsely elevated Potassium levels. ??For accurate Potassium quantif ication in these patients send serum separator tube (gold top) for subsequent determinations. ??Contact the Clinical Chemistry Laboratory if there are any qu estions. Chloride 99 98 - 107 mmol/L [facility] CO2 21 (L) 22 - 31 mmol/L [facility] Anion Gap 16 (H) 5 - 15 mmol/L [facility] Calcium 9.6 8.5 - 10.5 mg/dL [facility] Estimated GFR 85 >=60 mL/min/1.73 m?? [facility] Comment: The eGFR was calculated using the CKD-EP I equation. As with all creatinine based estimates of kidney function, eGFR values calculated with the CKD-EPI equation are not accurate in patients wi th acute kidney failure, extremes of body mass or the acutely ill. http://[employer]/[facility] eGFR 99 >=60 mL/min/1.73 m?? [facility] Comment: The eGFR was calculated using the CKD-EP I equation. As with all creatinine based estimates of kidney function, eGFR values calculated with the CKD-EPI equation are not accurate in patients wi th acute kidney failure, extremes of body mass or the acutely ill. http://[employer]/[facility] Specimen Anatomical Collection Method Collection Time Receive d Time (Source) Location / / Volume Laterality Blood specimen 07/10/2018 3:20 AM 018 3:23 (specimen) EST AM EST Resulting Agency Comment Spec In Lab Leon Bass MD CHEMISTRY ORDERABLES Performing Organization Address City/State/ZIP Code Phon e Number [place] [phone] (ABNORMAL) Differential, Automated (07/10/2018 3:20 AM EST) [facility] Method Time Signature Neutrophils % 54.3 % [facility] Neutr Abs (ANC) 6.51 (H) 1.70 - [facility] 6.10 [facility] x10(3)/[facility] LABORATORY Lymphocytes % 33.8 % [facility] Lymphocytes Abs 4.0 (H) 0.9 - 3.2 [facility] x10(3)/[facility] LABORATORY Monocytes % 8.8 % [facility] Monocyte Abs 1.0 (H) 0.3 - 0.9 [facility] x10(3)/[facility] LABORATORY Eosinophils % 2.6 % [facility] Eosinophils Abs 0.3 0.0 - 0.4 [facility] x10(3)/[facility] LABORATORY Basophils % 0.3 % [facility] Basophils Abs 0.0 0.0 - 0.1 [facility] x10(3)/[facility] LABORATORY Immature Gran % 0.20 % [facility] Comment: Immature granulocytes(IG's)percentage an d absolute count will include metamyelocytes, myelocytes, and promyelo cytes. Blood smears from CBCs yielding IG's will be scanned manually for concor danshabana. If this scan disagrees with the automated IG or if promyelocytes are not ed, a manual differential will be performed. Irina Gran Abs 0.02 0.00 - 0.04 x10(3)/[facility]ORY Specimen Anatomical Collection Method Collection Time Receive d Time (Source) Location / / Volume Laterality Blood specimen 07/10/2018 3:20 AM 018 3:23 (specimen) EST AM EST Resulting Agency Comment Spec In Lab Maylin Broussard MD HEMATOLOGY ORDERABLES Performing Organization Address City/State/ZIP Code Phon e Number [place] [phone] (ABNORMAL) Hemogram (07/10/2018 3:20 AM EST) Analysis Performed At Patho logist Time Signature WBC 12.0 (H) 4.0 - 9.5 [facility] x[facility](3[facility] LABORATORY RBC 3.90 (L) 4.00 - [facility] 5.21 [facility] x10(6)/[facility] LABORATORY Hemoglobin 12.4 11.7 - [facility] 15.5 gm/dL [facility] Hematocrit 36.6 35.7 - [facility] 45.8 % [facility] MCV 93.8 82.6 - [facility] 94.4 [facility] LABORATORY MCH 31.8 27.1 - [place] 32.0 pg [facility] MCHC 33.9 31.7 - [facility] 35.0 gm/dL [facility] Platelets 216 145 - 357 [facility] x10(3)/[facility] LABORATORY RDWSD 42.8 37.0 - [facility] [facility] 46.0 [facility] LABORATORY RDWCV 12.4 11.5 - [facility] 14.1 % [facility] LABORATORY MPV 9.7 7.6 - 12.9 [facility] LABORATORY nRBC % Auto 0.0 % [facility] LABORATORY nRBC Abs Auto 0.000 0.000 - [facility] 0.000 [facility] x10(3)/[facility] LABORATORY Specimen Anatomical Collection Method Collection Time Receive d Time (Source) Location / / Volume Laterality Blood specimen 07/10/2018 3:20 AM 018 3:23 (specimen) EST AM EST Resulting Agency Comment Spec In Lab Maylin Broussard MD HEMATOLOGY ORDERABLES Performing Organization Address City/State/ZIP Code Phon e Number [address] Triglyceride (07/10/2018 3:20 AM EST) P athologist Signature Triglycerides 271 mg/dL [facility] Comment: Average Risk/Lower Risk: <150 mg/dL Borderline High Risk: 150-199 mg/dL High Risk: 200-499 mg/dL Very High Risk: >jb=524 mg/dL Specimen Anatomical Collection Method Collection Time Receive d Time (Source) Location / / Volume Laterality Blood specimen 07/10/2018 3:20 AM 018 3:23 (specimen) EST AM EST Resulting Agency Comment Spec In Lab Kelsey Eaton MD CHEMISTRY ORDERABLES Performing Organization Address City/[facility]/ZIP Code Phon e Number [address] HDL/Cholesterol Profile (07/10/2018 3:20 AM EST) P athologist Signature Chol, Total 127 mg/dL [facility] Comment: Lower Risk: <200 mg/dL Average Risk: 200-239 mg/dL Higher Risk: >jy=460 mg/dL HDL 34 mg/dL [facility] Comment: Males: ?? Higher Risk: <40 mg/dL Females: ?? HIgher Risk: <50 mg/dL Chol/HDL Ratio 3.7 ratio [facility] Chol/HDL Interpretation See Note [facility] LABORATORY Comment: Lipid management should be guided by a p atient? s ASCVD risk, goals and preferences. ACC/AHA Guidelines recommend high intens ity statin if clinical ASCVD or LDL greater than or equal to 190 mg/dL. [email or web address] Measure LDL if Total Cholesterol minus H DL Cholesterol is greater than 220 mg/dL. Adults aged 40-75 with LDL 70-189 mg/dL should have their 10 year ASCVD risk estimated with the ACC/AHA ASCVD risk es timator http://tools.acc.org/FERDQ-Hicn-Hcxorcoo r/ Statin should be discussed if risk great er than or equal to 7.5% in non-diabetics. With diabetes, moderate i ntensity statin is recommended if risk less than 7.5%, high intensity if risk g reater than or equal to 7.5%. Annual lipid monitoring on statins is no t necessary. Lifestyle modification is a critical com ponent of ASCVD risk reduction. Specimen Anatomical Collection Method Collection Time Receive d Time (Source) Location / / Volume Laterality Blood specimen 07/10/2018 3:20 AM 018 3:23 (specimen) EST AM EST Resulting Agency Comment Spec In Lab Kelsey Eaton MD CHEMISTRY ORDERABLES Performing Organization Address City/State/ZIP [place] [address] LDL Cholesterol, Direct (07/10/2018 3:20 AM EST) P athologist Signature LDL Chol 62 mg/dL [facility] LABORATORY Comment: Lowest Risk: <100 mg/dL Lower Risk: 100-129 mg/dL Borderline High Risk: 130-159 mg/dL High Risk: 160-189 mg/dL Very High Risk: >rj=440 mg/dL Specimen Anatomical Collection Method Collection Time Receive d Time (Source) Location / / Volume Laterality Blood specimen 07/10/2018 3:20 AM 018 3:23 (specimen) EST AM EST Resulting Agency Comment Spec In Lab Kelsey Eaton MD CHEMISTRY ORDERABLES Performing Organization Address City/State/ZIP Code Phon e Number [address] (ABNORMAL) Hemoglobin A1c (07/10/2018 3:20 AM EST) Analysis Performed At Patho logist Time Signature Hemoglobin A1C 7.8 (H) 4.3 - 5.6 [facility] LABORATORY Comment: Reference Range: 4.3 - 5.6% 5.7 - 6.4% - Increased Risk of Developin g Diabetes Mellitus >=6.5% - Consistent with diagnosis of Di abetes Mellitus In the absence of hyperglycemia (i.e. pl asma glucose > 200 mg/dL) or classic symptoms of hyperglycemia a repeat measu rement of HbA1c should be performed on a separate sample to confirm the diagnos is. Diagnosis and Classification of Diabetes Mellitus, Diabetes Care 2013; 36: Suppl. 1, S67-43 Est Avg Gluc 177 mg/dL [facility] LABORATORY Comment: eAG equivalents for HbA1c percentages: HbA1c(%) ?eAG(mg/dL) 6.0 ?126 6.5 ?140 7.0 ?154 7.5 ?169 8.0 ?183 8.5 ?197 9.0 ?212 9.5 ?226 10.0 ? 240 Limitations: The eAG calculation has not been validated on women, individuals below 18 years old and above 70 years old, and individuals with hemoglobinopathies. Additional resources are available on [facility] ADA website. Godfrey VALENCIA, Yumiko J, Herminia R, et al. ??Tr anslating the A1C assay into estimated average glucose values. ??Diabetes Care 2008:31(8):6659-6336. Specimen Anatomical Collection Method Collection Time Receive d Time (Source) Location / / Volume Laterality Blood specimen 07/10/2018 3:20 AM 018 3:23 (specimen) EST AM EST Resulting Agency Comment Spec In Lab Kelsey Eaton MD CHEMISTRY ORDERABLES Performing Organization Address City/State/ZIP Code Phon e Number [place] [address] POCT Glucose (07/10/2018 12:07 AM EST) P athologist Signature POC Glucose 196 65 - 199 [facility] mg/dL [facility] LABORATORY Comment: Supplemental ranges: <140 mg/dL before meals <180 mg/dL all other times of the day Specimen Anatomical Collection Method Collection Time Receive d Time (Source) Location / / Volume Laterality Blood specimen 07/10/2018 12: 8 (specimen) AM EST 12:07 AM EST Kelsey Eaton MD POINT OF CARE TEST ORDERABLE S Performing Organization Address City/[facility]/ZIP Code Phon e Number [address] Urine culture (07/09/2018 10:21 PM EST) Patholo gist Method Time Signature Urine Culture No [facility] (Less than [facility] 1,000 [facility] cfu/ml). LABORATORY Specimen (Source) Anatomical Collection Method Collection Time Re ceived Time Location / / Volume Laterality Urine specimen 07/09/2018 10:21 8 7:23 obtained by clean PM EST AM EST catch procedure (specimen) Resulting Agency Comment Spec In Lab Leon Bass MD MICROBIOLOGY - GENERAL ORDER ELINA Performing Organization Address City/State/Z[place] [address] (ABNORMAL) Urinalysis Microscopic Exam (07/09/2018 10:21 PM EST) Analysis Performed At Patho logist Time Signature RBC UA 60 (H) 0 - 4 /HPF [facility] LABORATORY WBC UA >182 (H) 0 - 5 /HPF [facility] Bacteria UA Rare (A) None /HPF [facility] Squam Epith UA 2 <=4 /HPF [facility] LABORATORY Specimen (Source) Anatomical Collection Method Collection Time Re ceived Time Location / / Volume Laterality Urine specimen 07/09/2018 10:21 8 3:12 obtained by clean PM EST AM EST catch procedure (specimen) Resulting Agency Comment Spec In Lab Leon Bass MD URINE ORDERABLES Performing Organization Address City/State/ZIP Code Phon e Number [place] [id number] HOSPITAL LAB[address]ORY Drive (ABNORMAL) Urinalysis with reflex Culture (07/09/2018 10:21 PM EST) [facility] Method Time Signature Glucose UA Negative Negative [facility] mg/dL [facility] LABORATORY Protein UA 30 (A) Negative [facility] mg/dL [facility] LABORATORY Bilirubin UA Negative Negative [facility] mg/dL [facility] LABORATORY Comment: Clinical correlation required for positi ve Urine Bilirubin results as false positive may occur with some drugs and d rug related products. If a false positive is suspected a serum total bili bailon should be considered if clinically indicated. Urobilinogen UA Normal Normal mg/dL [facility] LABORATORY pH UA 6.0 5.0 - 8.0 [facility] LAB[facility]AT[facility] Blood UA Moderate (A) Negative mg/dL [facility] LABORATORY Ketones UA Negative Negative mg/dL [facility] Nitrite UA Negative Negative [facility] LABORATORY Leukocytes UA Large (A) Negative [facility] LABORATORY Appearance UA Cloudy (A) Clear [facility] LABORAT[facility] Spec [place] UA 1.028 1.002 - 1.030 [facility] LABORATORY Color UA Yellow Yellow [facility] LABORATORY Culture Reflexed Yes [facility] LABORATORY Specimen (Source) Anatomical Collection Method Collection Time Re ceived Time Location / / Volume Laterality Urine specimen 07/09/2018 10:21 8 3:12 obtained by clean PM EST AM EST catch procedure (specimen) Resulting Agency Comment Spec In Lab Kelsey Eaton MD URINE ORDERABLES Performing Organization Address City/State/ZIP Code Phon e Number [place] [id number] HOSPITAL LABORATORY Drive Blood culture (07/09/2018 8:03 PM EST) [facility] Method Time Signature Blood Culture No growth [facility] at 5 days. [facility] LABORATORY Specimen Anatomical Collection Method Collection Time Receive d Time (Source) Location / / Volume Laterality Blood specimen 07/09/2018 8:03 PM 018 8:11 (specimen) EST PM EST Comment: LH Resulting Agency Comment Spec In Lab Kelsey Eaton MD MICROBIOLOGY - BLOOD ORDERAB LES Performing Organization Address City/State/[place] [address] (ABNORMAL) POCT Glucose (07/09/2018 8:01 PM EST) P athologist Signature POC Glucose 201 (H) 65 - 199 [facility] LABORATORY Comment: Supplemental ranges: <140 mg/dL before meals <180 mg/dL all other times of the day Specimen Anatomical Collection Method Collection Time Receive d Time (Source) Location / / Volume Laterality Blood specimen 07/09/2018 8:01 PM 018 8:01 (specimen) EST PM EST Kelsey Eaton MD POINT OF CARE TEST ORDERABLE S Performing Organization Address City/[facility]/ZIP [place] [address] (ABNORMAL) Differential, Automated (07/09/2018 7:50 PM EST) Patholo gist Method Time Signature Neutrophils % 65.5 % [facility]ORATORY Neutr Abs (ANC) 9.26 (H) 1.70 - [facility] 6.10 [facility] x10(3)/[facility] LABORATORY Lymphocytes % 23.9 % [facility]ORATORY Lymphocytes Abs 3.4 (H) 0.9 - 3.2 [facility] x10(3)/[facility] LABORATORY Monocytes % 8.6 % [facility] LABORATORY Monocyte Abs 1.2 (H) 0.3 - 0.9 [facility] x10(3)/[facility] LABORATORY Eosinophils % 1.3 % [facility]ORAT[facility] Eosinophils Abs 0.2 0.0 - 0.4 [facility] x10(3)/[facility] LABORATORY Basophils % 0.3 % [facility] Basophils Abs 0.0 0.0 - 0.1 [place] x10(3)/[facility] LABORATORY Immature Gran % 0.40 % [facility] Comment: Immature granulocytes(IG's)percentage an d absolute count will include metamyelocytes, myelocytes, and promyelo cytes. Blood smears from CBCs yielding IG's will be scanned manually for concor dance. If this scan disagrees with the automated IG or if promyelocytes are not ed, a manual differential will be performed. Irina Gran Abs 0.05 (H) 0.00 - 0.04 x10(3)/[facility] LABORATORY Specimen Anatomical Collection Method Collection Time Receive d Time (Source) Location / / Volume Laterality Blood specimen 07/09/2018 7:50 PM 018 7:56 (specimen) EST PM EST Resulting Agency Comment Spec In Lab Leon Bass MD HEMATOLOGY ORDERABLES Performing Organization Address City/State/Z[place] [address] (ABNORMAL) Hemogram (07/09/2018 7:50 PM EST) Analysis Performed At Patho logist Time Signature WBC 14.1 (H) 4.0 - 9.5 [facility] x10(3)/[facility] LABORATORY RBC 3.96 (L) 4.00 - [facility] 5.21 [facility] x10(6)/[facility] LABORATORY Hemoglobin 12.5 11.7 - [facility] gm/dL [facility] LABORATORY Hematocrit 37.4 35.7 - [facility] 45.8 % [facility] LABORATORY MCV 94.4 82.6 - [facility].4 [facility] LABORATORY MCH 31.6 27.1 - [place] 32.0 pg [facility] LABORATORY MCHC 33.4 31.7 - [facility] 35.0 gm/dL [facility] LABORATORY Platelets 216 145 - 357 [facility] x10(3)/[facility] LABORATORY RDWSD 43.2 37.0 - [facility] 46.0 [facility] RDWCV 12.4 11.5 - [facility] 14.1 % [facility] LABORATORY MPV 9.9 7.6 - 12.9 [facility] LABORATORY nRBC % Auto 0.0 % [facility] LABORATORY nRBC Abs Auto 0.000 0.000 - [facility] 0.000 [facility] x10(3)/[facility] LABORATORY Specimen Anatomical Collection Method Collection Time Receive d Time (Source) Location / / Volume Laterality Blood specimen 07/09/2018 7:50 PM 018 7:56 (specimen) EST PM EST Resulting Agency Comment Spec In Lab Leon Bass MD HEMATOLOGY ORDERABLES Performing Organization Address City/State/ZIP Code Phon e Number [address] Lactate, whole blood, send to lab (Leb/CGP) (07/09/2018 7:50 PM EST) P athologist Signature Lactate WB 1.7 0.5 - 2.2 [facility] mmol/L [facility] LABORATORY Specimen Anatomical Collection Method Collection Time Receive d Time (Source) Location / / Volume Laterality Blood specimen 07/09/2018 7:50 PM 018 7:56 (specimen) EST PM EST Resulting Agency Comment Spec In Lab Kelsey Eaton MD CHEMISTRY ORDERABLES Performing Organization Address City/[facility]/ZIP Code Phon e Number [address] Blood culture (07/09/2018 7:50 PM EST) Patholo gist Method Time Signature Blood Culture No growth [facility] at 5 days. [facility] LABORATORY Specimen Anatomical Collection Method Collection Time Receive d Time (Source) Location / / Volume Laterality Blood specimen 07/09/2018 7:50 PM 018 8:01 (specimen) EST PM EST Comment: RH Resulting Agency Comment Spec In Lab Kelsey Eaton MD MICROBIOLOGY - BLOOD ORDERAB LES Performing Organization Address City/[facility]/[place] [address] APTT (07/09/2018 7:50 PM EST) P athologist Signature PTT 26 25 - 37 sec [facility] Comment: The PTT is NOT appropriate for heparin m onitoring. Use the Anti-Xa level for heparin monitoring (HEP UFH) or LMWH mon itoring (HEP LMW). A PTT less than 37 seconds generally indicates adequate hem ostasis. Specimen Anatomical Collection Method Collection Time Receive d Time (Source) Location / / Volume Laterality Blood specimen 07/09/2018 7:50 PM 018 7:56 (specimen) EST PM EST Resulting Agency Comment Spec In Lab Kelsey Eaton MD HEMATOLOGY ORDERABLES Performing Organization Address City/[facility]/ZIP [place] [address] (ABNORMAL) Prothrombin Time (07/09/2018 7:50 PM EST) P athologist Signature PT 13.1 (H) 9.4 - 12.5 [facility] LABORATORY INR 1.2 [facility] Comment: An INR <2.0 indicates [...] Location / / Volume Laterality Blood specimen 07/09/2018 7:50 PM 018 7:56 (specimen) EST PM EST Resulting Agency Comment Spec In Lab Kelsey Eaton MD HEMATOLOGY ORDERABLES Performing Organization Address City/[facility] [place] [address] (ABNORMAL) Hepatic Function Panel (07/09/2018 7:50 PM EST) P athologist Signature Total Protein 6.9 6.1 - 8.0 [facility] gm/dL [facility] Albumin 3.8 3.2 - 5.2 [facility] gm/dL [facility] LABORATORY AST 32 (H) 0 - 30 [facility] unit/L [facility] ALT 25 0 - 30 [facility] unit/L [facility] Alk Phos 73 40 - 104 [place] unit/L [facility] LAB[facility]AT[facility] Total 1.2 0.2 - 1.3 [place] Bilirubin mg/dL [facility] LABORAT[facility] Bili, Direct 0.3 0.0 - 0.3 [facility] mg/dL [facility] LABORATORY Specimen Anatomical Collection Method Collection Time Receive d Time (Source) Location / / Volume Laterality Blood specimen 07/09/2018 7:50 PM 018 7:56 (specimen) EST PM EST Resulting Agency Comment Spec In Lab Kelsey Eaton MD CHEMISTRY ORDERABLES Performing Organization Address City/[facility]/ZIP Code Phon e Number [address] (ABNORMAL) Phosphorus (07/09/2018 7:50 PM EST) P athologist Signature Phosphorus 2.0 (L) 2.5 - 4.5 [facility] mg/dL [facility] LABORATORY Specimen Anatomical Collection Method Collection Time Receive d Time (Source) Location / / Volume Laterality Blood specimen 07/09/2018 7:50 PM 018 7:56 (specimen) EST PM EST Resulting Agency Comment Spec In Lab Kelsey Eaton MD CHEMISTRY ORDERABLES Performing Organization Address City/[facility]/ZIP [place] [address] (ABNORMAL) Magnesium (07/09/2018 7:50 PM EST) P athologist Signature Magnesium 0.65 (L) 0.69 - 1.07 [facility] mmol/L [facility]OR[facility]ORY Specimen Anatomical Collection Method Collection Time Receive d Time (Source) Location / / Volume Laterality Blood specimen 07/09/2018 7:50 PM 018 7:56 (specimen) EST PM EST Resulting Agency Comment Spec In Lab Kelsey Eaton MD CHEMISTRY ORDERABLES Performing Organization Address City/[facility]/ZIP [place] [address] (ABNORMAL) Basic Metabolic Panel (non-fasting) (07/09/2018 7:50 PM EST) P athologist Signature Glucose Lvl 206 (H) 65 - 199 [facility] mg/dL [facility] Comment: Diabetes: >=200 mg/dL plus symp toms BUN 14 8 - 18 mg/dL [facility] LABORATORY Creatinine 0.76 0.70 - 1.20 mg/dL [facility]OR[facility] Sodium 138 135 - 145 mmol/L [facility] Potassium 4.0 3.5 - 5.0 mmol/L [facility] Comment: Please note: ??Patients with WBC >100,00 0 may have falsely elevated Potassium levels. ??For accurate Potassium quantif ication in these patients send serum separator tube (gold top) for subsequent determinations. ??Contact the Clinical Chemistry Laboratory if there are any qu estions. Chloride 102 98 - 107 mmol/L [facility] CO2 24 22 - 31 mmol/L [facility] Anion Gap 12 5 - 15 mmol/L [facility] Calcium 9.8 8.5 - 10.5 mg/dL [facility] Estimated GFR 86 >=60 mL/min/1.73 m?? [facility] Comment: The eGFR was calculated using the CKD-EP I equation. As with all creatinine based estimates of kidney function, eGFR values calculated with the CKD-EPI equation are not accurate in patients wi th acute kidney failure, extremes of body mass or the acutely ill. [email or web address]/[facility] PRYORnkf eGFR 100 >=60 mL/min/1.73 m?? [facility] Comment: The eGFR was calculated using the CKD-EP I equation. As with all creatinine based estimates of kidney function, eGFR values calculated with the CKD-EPI equation are not accurate in patients wi th acute kidney failure, extremes of body mass or the acutely ill. [email or web address]/DHnkf Specimen Anatomical Collection Method Collection Time Receive d Time (Source) Location / / Volume Laterality Blood specimen 07/09/2018 7:50 PM 018 7:56 (specimen) EST PM EST Resulting Agency Comment Spec In Lab Kelsey Eaton MD CHEMISTRY ORDERABLES Performing Organization Address City/State/Z[place] [address] EKG 12 Lead (07/09/2018 6:18 PM EST) [facility] Method Time Signature Ventricular rate 90 BPM MUSE SYSTEM Atrial Rate 90 BPM MUSE SYSTEM P-R Interval 176 ms MUSE SYSTEM QRS Duration 140 ms MUSE SYSTEM Q-T Interval 358 ms MUSE SYSTEM QTC Calculated 437 ms MUSE SYSTEM (Bezet) Calculated P [place] 61 degrees MUSE SYSTEM Calculated R [place] 1 degrees MUSE SYSTEM Calculated T [place] 165 degrees MUSE SYSTEM INTERPRETATION Normal sinus rhythm MUSE SYSTEM Left bundle branch block Abnormal ECG No previous ECGs available Confirmed by MD Rajendra, Joni Hardin ([id number]) on 07/10/2018 10:43:24 PM Specimen Anatomical Collection Method Collection Time Receive d Time (Source) Location / / Volume Laterality 07/09/2018 6:18 PM 8 EST 10:43 PM EST Kelsey Eaton MD ECG ORDERABLES Performing Organization Address City/[facility]/ZIP Code Phon e Number MUSE SYSTEM (ABNORMAL) POCT Glucose (07/09/2018 5:06 PM EST) athologist Signature POC Glucose 209 (H) 65 - 199 [facility] mg/dL [facility] Comment: Supplemental ranges: <140 mg/dL before meals <180 mg/dL all other times of the day Specimen Anatomical Collection Method Collection Time Receive d Time (Source) Location / / Volume Laterality Blood specimen 07/09/2018 5:06 PM 018 5:06 (specimen) EST PM EST Latoya Merrill MD POINT OF CARE TEST ORDERABLE S Performing Organization Address City/[facility]/ZIP [place] [address] Urine Hold (07/09/2018 3:05 AM EST) athologist Signature Urine Hold Sample in [facility]. [facility] LABORATORY Specimen Anatomical Collection Method Collection Time Receive d Time (Source) Location / / Volume Laterality Urine specimen Urine / Unknown 07/09/2018 3:05 AM 06/22 3:13 (specimen) EST AM EST Leon Bass MD URINE ORDERABLES Performing Organization Address City/State/[place] [address] documented in this encounter Visit Diagnoses Diagnosis Sepsis, due to unspecified organism Ureteral stone Calculus of ureter Nephrolithiasis Calculus of kidney documented in this encounter Admitting Diagnoses Diagnosis Nephrolithiasis Calculus of kidney documented in this encounter Administered Medications Inactive Administered Medications - up to 3 most recent administrations Medication Order MAR Action Action Date Dose Rate Site acetaminophen (TYLENOL) tablet Given 07/10/2018 11:52 PM EST 650 mg 650 mg 650 mg, Oral, EVERY 6 HOURS PRN, Starting on e 07/09/18 at 1915, Until Arin 07/11/18 at 1958, Pain, Fever, Administer for temperature greater than or equal to 38.2 degrees celsius. Maximum daily dose of acetaminophen from all sources not to exceed 4,000 mg., Routine Given 07/10/2018 12:36 PM EST 650 mg Given 07/10/2018 3:21 AM EST 650 mg aspirin chewable tablet 81 mg Given 07/11/2018 4:10 PM EST 81 mg 81 mg, Oral, DAILY, First dose on Arin 07/11/18 at 1500, Until Discontinued, Routine carvedilol (COREG) tablet 3.125 mg Given 07/11/2018 4:10 PM EST 3.125 mg 3.125 mg, Oral, 2 TIMES DAILY WITH MEALS, First dose on Arin 07/11/18 at 1000, Until Discontinued, Routine Given 07/11/2018 11:39 AM EST 3.125 mg cefpodoxime (VANTIN) tablet 200 mg Given 07/11/2018 5:55 PM EST 200 mg 200 mg, Oral, 2 TIMES DAILY, 24 doses, First dose (after last modification) on Arin 07/11/18 at 1800, Last dose on Sun07/23/18 at 0900, Routine cefTRIAXone (ROCEPHIN) 2 g vial attach New Bag 07/10/2018 8:34 PM EST 2 g 100 mL/hr to sodium chloride 0.9% 50 mL Mini-Bag Plus 2 g, Intravenous, EVERY 24 HOURS, First dose (after last modification) on Sun07/09/18 at 2100, Until Discontinued, Administer over 30 Minutes, Indication for (Active or Suspected): Urinary Tract/Pyelonephritis New Bag 07/09/2018 8:32 PM EST 2 g 100 mL/hr dextrose 50% IV syringe 25-50 mL 25-50 mL (12.5-25 g), Intravenous, EVERY 1 HOUR PRN, Starting on Sun07/09/18 at 1912, Until Arin 07/11/18 at 1958, Low bl ood sugar, For BG 50-70: 120 mL Juice [...] Routine enoxaparin (LOVENOX) injection 40 mg Given 07/10/2018 8:26 PM EST 40 mg 40 mg, Subcutaneous, NIGHTLY, First dose on Sun07/09/18 at 2100, Until Discontinued, Routine Given 07/09/2018 8:09 PM EST 40 mg gabapentin (NEURONTIN) capsule 600 mg Given 07/11/2018 2:34 PM EST 600 mg 600 mg, Oral, 3 TIMES DAILY, First dose on Sun07/09/18 at 2130, Until Discontinued, Routine Given 07/11/2018 8:59 AM EST 600 mg Given 07/10/2018 8:26 PM EST 600 mg glucagon (human recombinant) injection S olR 1 mg 1 mg, Intramuscular, EVERY 1 HOUR PRN, S tarting on Sun07/09/18 at 1912, Until Arin 07/11/18 at 1958, Low blood sugar, For BG 50-70: 120 mL Juice or Regular (not diet) soda OR 12.5 gram (25 mL) Dextrose 50% IV OR, if no IV access, 1 mg Glucagon IM. Recheck BG in 30 minutes. May repeat juice, dext chele or glucagon once per episode For BG less than 50: 240 mL Ju ice or Regular (not diet) soda OR 25 grams (50 mL) Dextrose 50% IV OR, if no IV acc ess, 1 mg Glucagon IM. Recheck BG in 30 minutes. May repeat juice, dextrose, or glucagon once per episode. To avoid extravasation, push Dextrose 50% SLOWLY (3 mL over 1 minute) in a patent, running IV, preferably a central line. For persistent hypogl ycemia, consider longer-acting treatment for the duration of the active insulin., Routine glucose (GLUTOSE) 40% oral gel 15 g, Oral, PER INSULIN PROTOCOL, Starting on 06/22 at 1912, Until Sun07/11/18 at 1958, Low blood sugar, Fo r BG 50-70 mg/dL: 120 mL Juice or [...] (net weight of tube = 37.5 grams., Matilda chaparro insulin lispro (HumaLOG) VIAL injection 1-4 Given 06/22 4:17 AM EST 3 Units Units 1-4 Units, Subcutaneous, EVERY 4 HOURS SCHEDULED, First dose on Sun07/09/18 at 2100, Until Discontinued, CORRECTION BOLUS Sensitive to insulin [...] specifically told to do so., Routine Given 07/10/2018 12:10 AM EST 2 Units Given 07/09/2018 8:30 PM EST 3 Units insulin lispro (HumaLOG) VIAL injection 2-8 Given 06/23 4:10 PM EST 4 Units Units 2-8 Units, Subcutaneous, 3 TIMES DAILY BEFORE MEALS, First dose on Sun07/10/18 at 0730, Until Discontinued, CORRECTION BOLUS Moderate [...] specifically told to do so., Routine Given 07/11/2018 11:40 AM EST 6 Units Given 07/11/2018 7:32 AM EST 6 Units ketorolac (TORADOL) injection 15 mg Given 07/09/2018 8:36 PM EST 15 mg 15 mg, Intravenous, ONCE, 1 dose, On Sun07/09/18 at 2045, Routine ketorolac (TORADOL) injection 15 mg Given 07/10/2018 2:50 PM EST 15 mg 15 mg, Intravenous, ONCE, 1 dose, On Sun07/10/18 at 1500, Routine ketorolac (TORADOL) injection 15 mg Given 07/11/2018 6:10 AM EST 15 mg 15 mg, Intravenous, ONCE, 1 dose, On Sun07/11/18 at 0630, Routine ketorolac (TORADOL) injection 15 mg Given 07/11/2018 12:25 PM EST 15 mg 15 mg, Intravenous, ONCE, 1 dose, On Sun07/11/18 at 1245, Routine lactated Ringers infusion 1,000 New Bag 07/10/2018 1:30 PM EST 1,000 mLs 100 mL/hr mL 1,000 mL, at 100 mL/hr, Intravenous, CONTINUOUS, Starting on Sun07/10/18 at 1200, Until Sun07/10/18 at 1348, PACU Recovery lisinopril (PRINIVIL;ZESTRIL) tablet 5 m g Given 07/11/2018 11:39 AM EST 5 mg 5 mg, Oral, DAILY, First dose on Sun07/11/18 at 1000, Until Discontinued, Routine magnesium sulfate 1g in dextrose 5% New Bag 07/10/2018 4:15 AM EST 1 g 100 mL/hr 100mL 1 g, Intravenous, EVERY HOUR, 2 doses, First dose on Sun07/10/18 at 0315, Last dose on Sun07/10/18 at 0400, Administer over 60 Minutes New Bag 07/10/2018 3:03 AM EST 1 g 100 mL/hr sodium chloride 0.9 % flush 5 mL Given 07/11/2018 9:00 AM EST 5 mLs 5 mL, Intravenous, 2 TIMES DAILY, First dose on Sun07/09/18 at 2100, Until Discontinued, Routine Given 07/10/2018 8:26 PM EST 5 mLs Given 07/10/2018 8:16 AM EST 5 mLs sodium chloride 0.9% infusion New Bag 07/09/2018 8:00 PM EST 1,000 mLs 100 mL/hr 1,000 mL, at 100 mL/hr, Intravenous, CONTINUOUS, Starting on Sun07/09/18 at 1945, Until Sun07/10/18 at 1539 spironolactone (ALDACTONE) tablet 25 mg Given 07/11/2018 11:40 AM EST 25 mg 25 mg, Oral, DAILY, First dose on Sun07/11/18 at 1000, Until Discontinued, Routine documented in this encounter Active and Recently Administered Medications Times are shown in EST. Scheduled Medication Order 07/09/2018 07/10/2018 07/11/2018 aspirin chewable tablet 81 mg 16 10 (Given - Provider: Cassandra Sofia, BRYAN) 81 mg, Oral, DAILY, First dose on Sun at 1500, Until Discontinued, Routine carvedilol (COREG) tablet 3.125 mg 1139 (Given - Provider: Cassandra S [place], RN)1610 (Given - Provider: Cassandra Sofia RN) 3.125 mg, Oral, 2 TIMES DAILY WITH MEALS , First dose on Sun07/11/18 at 1000, Until Discontinued, Routine cefpodoxime (VANTIN) tablet 200 mg 200 mg, Oral, 2 TIMES DAILY, 24 doses, F irst dose on Sun07/11/18 at 2100, Last dose on Sun07/23/18 at 0900, Routine cefpodoxime (VANTIN) tablet 200 mg 1754 (Given - Provider: Cassandra Sofia RN) 200 mg, Oral, 2 TIMES DAILY, 24 doses, F irst dose on Sun07/11/18 at 1800, Last dose on Sun07/23/18 at 0900, Routine cefTRIAXone (ROCEPHIN) 2 g vial attach t o sodium chloride 0.9% 50 mL Mini-Bag Plus (CANCELED) 2031 (New Bag - Provider: Maxine beach RN)2101 (Stopped - Provider: Maxine May RN) 0956 (SEP Hold - Provider: Admin Adt - R carol: Transfer to a Procedural area)1225 (SEP Unhold - Provider: Cristina Recinos RN)2033 (New Bag - Provider: Ryann Corbett RN)2103 (Stopped - Provider: Maxine May RN) 2 g, Intravenous, EVERY 24 HOURS, First dose on Sun07/09/18 at 2100, Until Discontinued, Administer over 30 Minutes, Indication for (Active or Suspected): Urinary Tract/Pyelonephritis docusate sodium (COLACE) capsule 100 mg 2000 (Not Give n - Provider: Maxine May RN - Reason: Patient/family refused) 899 (Not Given - Provider: Cindi Lopez RN - Reason: Patient/family refused)0956 (SEP Hold - Provider: Admin Adt - Reason: Transfer to a Procedural area)1348 (SEP Unhold - Provider: Admin Adt) 899 (Not Given - Provider: Marisol Grimaldo RN - Reason: Patient/family refused) 100 mg, Oral, 2 TIMES DAILY, First dose on Sun07/09/18 at 2100, Until Discontinued, Routine 2100 (Not Given - Provider: Ryann Corbett RN - Reason: Patient/family refused) enoxaparin (LOVENOX) injection 40 mg 2008 (Given - Pro vider: Maxine May RN) 0956 (SEP Hold - Provider: Admin Adt - R carol: Transfer to a Procedural area)134 (SEP Unhold - Provider: Admin Adt)2025 (Given - Provider: Ryann Corbett, BRYAN) 40 mg, Subcutaneous, NIGHTLY, First dose on Sun07/09/18 at 2100, Until Discontinued, Routine gabapentin (NEURONTIN) capsule 600 mg 2307 (Given - Pr ovider: Maxine May, RN) 0816 (Given - Provider: Cindi Lopez , BRYAN)0956 (SEP Hold - Provider: Admin Adt - Reason: Transfer to a Procedural area)1348 (SEP Unhold - Provider: Admin Adt)145 (Given - Provider: Cindi Lopez, BRYAN)2025 (Given - Provider: Ryann Corbett, BRYAN) 0859 (Given - Provider: Marisol smalls RN)143 (Given - Provider: Cassandra Sofia, BRYAN) 600 mg, Oral, 3 TIMES DAILY, First dose on Sun07/09/18 at 2130, Until Discontinued, Routine insulin lispro (HumaLOG) VIAL injection 1-4 Units (CAN CELED) 2029 (Given - Provider: Maxine May RN) 9 (Given - Provider: Maxine porras RN)041 (Given - Provider: Maxine May, BRYAN) 1-4 Units, Subcutaneous, EVERY 4 HOURS S CHEDULED, First dose on Sun07/09/18 at 2100, Until Discontinued, CORRECTION BOLUS Sensitive to insulin lean patient or total daily dose of all insulin needed to achieve glycemic control less than 3 [...] so., Routine insulin lispro (HumaLOG) VIAL injection 2-8 Units(Linked Bear up 1) 0816 (Given - Provider: Cindi Lopez RN)0956 (MAR Hold - Provider: Admin Adt - Reason: Transfer to a Procedural area)1130 (Automatically Held - Provider: Admin Adt)1225 (MAR Unhold - Provider: Cristina Recinos, BRYAN) 0732 (Given - Provider: Cassandra Sofia, BRYAN)1140 (Given - Provider: Cassandra Sofia, RN)1610 (Given - Provider: Cassandra Sofia, BRYAN) 2-8 Units, Subcutaneous, 3 TIMES DAILY B EFORE MEALS, First dose on Sun07/10/18 at 0730, Until Discontinued, CORRECTION BOLUS Moderate BG 140 - 160 Give 2 units BG 161 - 200 Give 4 units BG 201 - 24 1237 (Give n - Provider: Cristina Recinos RN)1728 (Given - Provider: Cindi Lopez RN) 0 Give 6 units BG greater than 240, give 8 units and recheck BG in 2 hours.If BG less than 240 after two hours, give no insulin and resume prior schedule. If BG remains greater than 240, repeat 8 units (no more than three times) & call for ne w basal insulin orders. DO NOT hold if NPO, unless specifically told to do so., Routine ketorolac (TORADOL) injection 15 mg (COMPLETED) 2035 ( Given - Provider: Maxine May RN) 15 mg, Intravenous, ONCE, 1 dose, Sun07/09/18 at 2045, Routine ketorolac (TORADOL) injection 15 mg (COMPLETED) 1450 (Given - Provider: Cindi Lopez RN) 15 mg, Intravenous, ONCE, 1 dose, Sun07/10/18 at 1500, Routine ketorolac (TORADOL) injection 15 mg (COMPLETED) 0610 (Given - Provider: Anne Munoz RN) 15 mg, Intravenous, ONCE, 1 dose, Arin 07/11/18 at 0630, Routine ketorolac (TORADOL) injection 15 mg (COMPLETED) 1225 (Given - Provider: Cassandra Sofia, BRYAN) 15 mg, Intravenous, ONCE, 1 dose, Arin 07/11/18 at 1245, Routine lisinopril (PRINIVIL;ZESTRIL) tablet 5 mg 1139 (Given - Provider: Cassandra Sofia, RN) 5 mg, Oral, DAILY, First dose on Arin at 1000, Until Discontinued, Routine magnesium sulfate 1g in dextrose 5% 100mL (COMPLETED) 030 (New Bag - Provider: Maxine May, RN)035 (Stopped - Provider: Maxine May, RN)0415 (New Bag - Provider: Maxine May, RN)0515 (Stopped - Provider: Maxine May, RN) 1 g, Intravenous, EVERY HOUR, 2 doses, F irst dose on Sun07/10/18 at 0315, Last dose on Sun07/10/18 at 0400, Administer over 60 Minutes sodium chloride 0.9 % flush 5 mL 2000 (Given - Provider: Tolu May, BRYAN) 08 (Given - Provider: Cindi Lopez RN)0956 (SEP Hold - Provider: Admin Adt - Reason: Transfer to a Procedural area)1348 (SEP Unhold - Provider: Admin Adt)2025 (Given - Provider: Ryann Corbett, BRYAN) 0900 (Given - Provider: Marisol Cornell, BRYAN) 5 mL, Intravenous, 2 TIMES DAILY, First dose on Sun07/09/18 at 2100, Until Discontinued, Routine spironolactone (ALDACTONE) tablet 25 mg 1140 (Given - Provider: Cassandra Sofia, BRYAN) 25 mg, Oral, DAILY, First dose on Arin at 1000, Until Discontinued, Routine Continuous Medication Order 07/09/2018 07/10/2018 07/11/2018 lactated Ringers infusion 1,000 mL (CANCELED) 1330 (New Bag - Provider: Juancarlos Watkins, BRYAN) 1,000 mL, at 100 mL/hr, Intravenous, CON TINUOUS, Starting Sun07/10/18 at 1200, Until Sun07/10/18 at 1348, PACU Recovery sodium chloride 0.9% infusion (CANCELED) 1999 (New Bag - Provider: Maxine May, BRYAN) 0956 (SEP Hold - Provider: Admin Adt - R carol: Transfer to a Procedural area)1225 (SEP Unhold - Provider: Cristina Recinos, BRYAN) 1,000 mL, at 100 mL/hr, Intravenous, CON TINUOUS, Starting Sun07/09/18 at 1945, Until Sun07/10/18 at 1539 PRN Medication Order 07/09/2018 07/10/2018 07/11/2018 acetaminophen (TYLENOL) tablet 650 mg 03 21 (Given - Provider: Juancarlos Núñez, BRYAN)0956 ([facility] Hold - Provider: Admin Adt - Reason: Transfer to a Procedural area)1225 ([facility] Unhold - Provider: Cristina Recinos, RN)1236 (Given - Provider: Cristina Recinos, BRYAN) 650 mg, Oral, EVERY 6 HOURS PRN, Startin g e 07/09/18 at 1915, Until Arin 07/11/18 at 1958, Pain, Fever, Administer for temperature greater than or equal to 38.2 degrees celsius. Maximum daily dose of a 2352 (Given - Provider: Anne Munoz RN) cetaminophen from all sources not to exceed 4,000 mg., Routine dextrose 50% IV syringe 25-50 mL(Linked Group 2) 0956 ([facility] Hold - Provider: Admin Adt - Reason: Transfer to a Procedural area)1348 ([facility] Unhold - Provider: Admin Adt) 25-50 mL (12.5-25 g), Intravenous, EVERY 1 HOUR PRN, Starting e 07/09/18 at 1912, Until Arin 07/11/18 at 1958, Low blood sugar, For BG 50-70: 120 mL Juice or Regular (not diet) soda OR 12.5 gram (25 mL) Dextrose 50% IV OR, if no IV access, 1 mg Glucagon IM. Recheck BG in 30 minutes. May repeat juice, dextrose or glucagon once per episode For BG less than 50: 240 mL Juice or Regular (not diet) s shazia OR 25 grams (50 mL) Dextrose 50% IV OR, if no IV access, 1 mg Glucagon IM. Recheck BG in 30 minutes. May repeat juice, dextrose, or glucagon once per episode. To avoid extravasation, push Dextro se 50% SLOWLY (3 mL over 1 minute) in a patent, running IV, preferably a central line. For persistent hypoglycemia, consider longer-acting treatment for the duration of the active insulin., Routine glucagon (human recombinant) injection SolR 1 mg(Linked Grou p 2) 0956 ([facility] Hold - Provider: Admin Adt - Reason: Transfer to a Procedural area)1348 ([facility] Unhold - Provider: Admin Adt) 1 mg, Intramuscular, EVERY 1 HOUR PRN, S tarting Sun07/09/18 at 1911, Until Arin 07/11/18 at 1957, Low blood sugar, For BG 50-70: 120 mL Juice or Regular (not diet) soda OR 12.5 gram (25 mL) Dextrose 5 0% IV OR, if no IV access, 1 mg Glucagon IM. Recheck BG in 30 minutes. May repeat juice, dextrose or glucagon once per episode For BG less than 50: 240 mL Juice or Regular (not diet) soda OR 25 gram s (50 mL) Dextrose 50% IV OR, if no IV a ccess, 1 mg Glucagon IM. Recheck BG in 30 minutes. May repeat juice, dextrose, or glucagon once per episode. To avoid extravasation, push Dextrose 50% SLOWLY (3 mL over 1 minute) in a patent, runnin g IV, preferably a central line. For persistent hypoglycemia, consider longer-acting treatment for the duration of the active insulin., Routine glucose (GLUTOSE) 40% oral gel(Linked Group 2) 0956 ([facility] Hold - Provider: Admin Adt - Reason: Transfer to a Procedural area)1348 ([facility] Unhold - Provider: Admin Adt) 15 g, Oral, PER INSULIN PROTOCOL, Starti ng Sun07/09/18 at 1911, Until Arin 07/11/18 at 1957, Low blood sugar, For BG 50-70 mg/dL: 120 mL Juice or Regular (not diet) soda OR 15 gram glucose 40% oral g el OR 12.5 gram (15 mL) Dextrose 50% IV OR, if no IV access, 1 mg Glucagon IM. Recheck BG in 30 minutes. May repeat juice, gel, dextrose or glucagon once per episode For BG less than 50 mg/dL: 240 m l Juice or Regualr (not diet) soda OR 30 gram glucose 40% oral gel OR 25 gram (50 mL) Dextrose 50% IV OR, if no IV access, 1 mg Glucagon IM Recheck BG in 30 minutes. May repeat juice, gel, dextrose or glucagon once per episode. To avoid e xtravasation, push Dextrose 50% SLOWLY (3 mL over 1 minute) in a patent, running IV, preferably a central line For persistent hypoglycemia, consider longer-act ing treatment for the duration of the ac tive insulin 1 tube contains 15 grams of glucose (net weight of tube = 37.5 grams., Routine iohexol (OMNIPAQUE) 300 mg/mL solution (CANCELED) 1043 (Given - Provider: Viky Sears MD - Comment: 5 ml NACL added to 5 ml of omnipaque total amt used of mixture 10 ml) ONCE PRN, Starting Sun07/10/18 at 1043, Until Sun07/11/18 at 1958, Intra- Operative (Intra-Procedure), Routine lidocaine (XYLOCAINE) 10 mg/mL (1 %) injection 3 mg 0956 ([facility] Hold - Provider: Admin Adt - Reason: Transfer to a Procedural area)1348 ([facility] Unhold - Provider: Admin Adt) 3 mg (0.3 mL), Subcutaneous, ONCE PRN, 1 dose, Starting Sun07/09/18 at 1915, Until Sun07/11/18 at 1957, for discomfort with PIV insertion, Routine sodium chloride 0.9 % flush 5-20 mL 0956 ([facility] Hold - Provider: Admin Adt - Reason: Transfer to a Procedural area)1348 ([facility] Unhold - Provider: Admin Adt) 5-20 mL, Intravenous, EVERY 1 MIN PRN, S tarting Sun07/09/18 at 1915, Until Sun07/11/18 at 1957, flush, Flush pertains to all indwelling lines. Flush per protocol found in the job aid using the link provided on this medication record., Routine Linked Groups Order Group 1: POCT Fingerstick Glucose (CANCELED) Routine, 4 TIMES DAILY BEFORE MEALS & AT BEDTIME, First occurrence on Sun07/10/18 at 0700, Until Specified
Consider choosing FOUR TIMES A DAY BEFORE MEALS AND AT BEDTIME as frequency f or: Patients who have a good hypoglycemi a awareness: -Patients who are eating meals during the day and sleeping at night -Patient who are otherwise stable And insulin lispro (HumaLOG) VIAL injection 2-8 UnitsJump to med 2-8 Units, Subcutaneous, 3 TIMES DAILY B EFORE MEALS, First dose on 12/19/18 at 0730, Until Discontinued
CORRECTION BOLUS Moderate BG 140 - 160& nbsp; Give 2 units &nbsp ;BG 161 - 200 Give 4 units BG 201 - 240 Give 6 units BG greater than 240, give 8 units and recheck BG in 2 hours.If BG less than 240 after two hours, g kayla no insulin and resume prior schedule . If BG remains greater than 240, repeat 8 units (no more than three times) & call for new basal insulin orders. DO NOT hold if NPO, unless specifically told to do so.
Routine Group 2: glucose (GLUTOSE) 40% oral gelJump to med 15 g, Oral, PER INSULIN PROTOCOL, Starti ng e 07/09/18 at 1912, Until [facility] 07/11/18 at 1958, Low blood sugar
For BG 50-70 mg/dL: 120 mL Juice or Regular (not diet) soda OR 15 gram glucose 40 % oral gel OR 12.5 gram (15 mL) Dextrose 50% IV OR, if no IV access, 1 mg Glucagon IM. Recheck BG in 30 minutes. May repeat juice, gel, dextrose or glucagon once per episode For BG less than 50 mg/d L: 240 ml Juice or Regualr (not diet) so da OR 30 gram glucose 40% oral gel OR 25 gram (50 mL) Dextrose 50% IV OR, if no IV access, 1 mg Glucagon IM Recheck BG in 30 minutes. May repeat juice, gel, dex trose or glucagon once per episode. To avoid extravasation, push Dextrose 50% SLOWLY (3 mL over 1 minute) in a patent, running IV, preferably a central line For persistent hypoglycemia, consider lo nger-acting treatment for the duration o f the active insulin 1 tube contains 15 grams of glucose (net weight of tube = 37.5 grams.
Routine Or dextrose 50% IV syringe 25-50 mLJump to med 25-50 mL (12.5-25 g), Intravenous, EVERY 1 HOUR PRN, Starting Sun07/09/18 at 1911, Until Arin 07/11/18 at 1957, Low blood sugar
For BG 50- 70: 120 mL Juice or Regular (not d iet) soda OR 12.5 gram (25 mL) Dextrose 50% IV OR, if no IV access, 1 mg Glucagon IM. Recheck BG in 30 minutes. May repeat juice, dextrose or glucagon once per ep isode For BG less than 50: 240 mL Juice or Regular (not diet) soda OR 25 grams (50 mL) Dextrose 50% IV OR, if no IV access, 1 mg Glucagon IM. Recheck BG in 30 minutes. &am p;nbsp;May repeat juice, dextrose, or gl ucagon once per episode. To avoid extravasation, push Dextrose 50% SLOWLY (3 mL over 1 minute) in a patent, running IV, preferably a central line.& nbsp;For persistent hypoglycemia, cons ider longer-acting treatment for the duration of the active insulin.
Routine Or glucagon (human recombinant) injection SolR 1 mgJump to med 1 mg, Intramuscular, EVERY 1 HOUR PRN, S tarting Sun07/09/18 at 1911, Until Arin 07/11/18 at 1957, Low blood sugar
For BG 50-70: 120 mL Juice or Regular (not diet) soda OR 1 2.5 gram (25 mL) Dextrose 50% IV OR, if no IV access, 1 mg Glucagon IM. Recheck BG in 30 minutes. May repeat juice, dextrose or glucagon once per episode&nbsp ;For BG less than 50: 240 mL Juice or Regular (not diet) soda OR 25 grams (50 mL) Dextrose 50% IV OR, if no IV access, 1 mg Glucagon IM. Recheck BG in 30 minutes. May rep eat juice, dextrose, or glucagon once pe r episode. To avoid extravasation, push Dextrose 50% SLOWLY (3 mL over 1 minute) in a patent, running IV, preferably a central line. For per sistent hypoglycemia, consider longer-ac ting treatment for the duration of the active insulin.
Routine documented in this encounter Care Teams Candy Puller Relationship Specialty Start Date End Date Albert Zuleta MD PCP - General Family Medicine 01/17/17 10/26/21 [address] [place] [address] documented as of this encounter
--- OUTSIDE RECORDS SUMMARY | 2022-02-08 02:00 | XMS_ITS | Encounter Summary ---
:1960 Author Organization [facility] [place] [address] Care Team Providers Name Role Phone Albert Zuleta MD Primary Care Provider Encounter Details Date Type Department Care Team Description 07/09/2018 [facility] [place] [id number] [place] [address] MEDICINE [phone] [place], [place] [address] (Wo rk) Social History Tobacco [...] 02/03/2013 mcg Capsule, the lungs. w/Inhalation Device aspirin 81 mg Tablet, Take 81 mg [...] 03/09/2018 (PRINIVIL;ZESTRIL) 5 mg MOUTH DAILY Tablet cefPODOXime (VANTIN) Take 1 tablet by mouth [...] mEq MOUTH EVERY DAY Capsule, Sustained Release hydroCODone-acetaminoph 0 10/01/2009 0 08/19/2018 en (VICODIN) 5-500 mg per tablet aspirin 325 mg tablet 0 10/01/2009 multivitamin 0 10/01/2009 11/06/2018 (THERAGRAN) tablet documented as of this encounter Plan of Treatment Upcoming Encounters Date Type Specialty Care Team Description 03/15/2022 Office Visit Neurology Ryann Barfield, [facility] [address] [place], [place] [address] 03/23/2022 Appointment Radiology Hailey Mcclendon MD [facility] [address] [place] [address] 03/23/2022 Laboratory Appointment Lab 03/23/2022 Office Visit Gastroenterology Hailey Mcclendon MD [facility] [address] [place] [address] 05/23/2022 Procedure visit Maxillofacial Surgery Corby Montes MD [facility] [address] [place] [address] documented as of this encounter Procedures Procedure Name Priority Date/Time Associated Diagnosis Comme nts FILM LIBRARY Routine 07/09/2018 1:46 PM Results f or this STORAGE ONLY CT EST procedure ar e in ABDOMEN AND PELVIS the resul ts section. documented in this encounter Results Film Library- Storage Only CT Abdomen & Pelvis (07/09/2018 1:46 PM EST) Specimen (Source) Anatomical Location Collection Method / Collectio n Time Received Time / Laterality Volume Narrative CRIS - 07/09/2018 1:46 PM EST This exam is for storage only and is aut o-finalizing. Latoya Merrill MD IMG FILM LIBRARY ORDERABLES Performing Organization Address City/State/ZIP Code Phon e Number [place], [place] documented in this encounter Visit Diagnoses Not on filedocumented in this encounter Care Teams Nurse Anesthetist Relationship Specialty Start Date End Date Albert Zuleta MD PCP - General Family Medicine 01/17/17 10/26/21 [place] [id number] documented as of this encounter
--- OUTSIDE RECORDS SUMMARY | 2022-02-08 02:00 | XMS_ITS | Encounter Summary ---
:1960 Author Organization [facility] [place] [address] Care Team Providers Name Role Phone Albert Zuleta MD Primary Care Provider Encounter Details Date Type Department Care Team Description 07/09/2018 External Results [facility] at at [facility] [place] [address] Social History Tobacco Use Types Packs/Day [...] APRN [facility] [address] [place] [place] [address] 03/23/2022 Appointment Radiology Hailey Mcclendon MD [facility] [address] [place] [address] 03/23/2022 Laboratory Appointment Lab 03/23/2022 Office Visit Gastroenterology Hailey Mcclendon MD [facility] [place] [address] 05/23/2022 Procedure visit Maxillofacial Surgery Corby Montes MD [facility] [place] [address] documented as of this encounter Procedures Procedure Name Priority Date/Time Associated Diagnosis Comme nts ECG SCAN Routine 07/09/2018 documented in this encounter Results Scan Doc: ECG (07/09/2018) Narrative This result has an attachment that is no t available. Historical Provider MD [facility] SCAN EXT ORDR/RSLT documented in this encounter Visit Diagnoses Not on filedocumented in this encounter Care Teams C++ Professor Relationship Specialty Start Date End Date Albert Zuleta MD PCP - General Family Medicine 01/17/17 10/26/[address] [place] [id number] documented as of this encounter
--- OUTSIDE RECORDS SUMMARY | 2022-02-08 02:00 | XMS_ITS | Encounter Summary ---
:1960 Author Organization [facility] [place] [address] Care Team Providers Name Role Phone Albert Zuleta MD Primary Care Provider Reason for Visit Auth/Cert Specialty Diagnoses / Procedures Referred By Contact Refer red To Contact Diagnoses Nephrolithiasis UROSEPSIS Referral ID Status Reason Start Date Expiration Date Visits Requ ested Visits Authorized [id number] 1 1 Encounter Details Date Type Department Care Team Description 07/10/2018 Surgery Main Operating Room Viky Sears, STENT PLACEMENT Hailey Carter MD (WRVU 2.82) [facility] [place] [address] [place] [address] [phone] Social History Tobacco Use Types Packs/Day Years [...] Sign Reading Time Taken Comments Blood Pressure 121/73 07/10/2018 7:41 AM EST Pulse 75 07/10/2018 7:41 AM EST Temperature 36.9 ??C (98.4 ??F) 07/10/2018 7:41 AM EST Respiratory Rate 15 07/10/2018 7:41 AM EST Oxygen Saturation 97% 07/10/2018 7:41 AM EST Inhaled Oxygen Concentration - - [...] HTN,and reducible abdominal hernia who presents to [facility] as transfer from [facility] with concern for sepsis likely 2/2 to [...] water a day. ?? She presented to [facility] where she reported I cannot keep anything down and given her history of abdominal hernia, raised concern for obstruction. Surgery was consulted and the hernia was reduced, but the patient's abdominal pain persisted. A U/A was performed which was concerning for a UTI. Of note, she has had 4 UTIs in the past [address] Chest Abdomen Pelvis at [facility] demonstrated a large stone impacted in the [...] overt evidence of sepsis. Upon admission to [facility], Ms. Samayoa's CT imaging from [facility] was reviewed and it appeared that she [...] Component Value Units Date/Time Urine culture Urine [[id number]] Collected: 07/10/18 1037 Lab Status: Final result Specimen: Urine Updated: 07/11/18 0748 Urine Culture No growth (Less than 1,000 cfu/ml). Urine culture [[id number]] Collected: 07/09/182220 Lab Status: Final result Specimen: Clean Catch Urine Updated: 07/11/18 0748 Urine Culture No growth (Less than 1,000 cfu/ml). Blood culture [[id number]] Collected: 07/09/182002 Lab Status: Preliminary result Specimen: Blood Updated: 07/10/18 230 Blood Culture No growth at 1 day. Blood culture [[id number]] Collected: 07/09/181949 Lab Status: Preliminary result Specimen: Blood Updated: 07/10/182300 Blood Culture No growth at 1 day. Urine Culture from [facility] on 07/09/18 Urine Culture > [...] 08/28/2018 8:30 AM Crow Galvin Jr., MD [facility] Date and Time Provider and Specialty Location 9:00AM on 07/30/17 Albert Zuleta MD , PCP [address] / [facility] [address] Your Inpatient Doctor(s) at [facility]: MD Leon Chauhan MD Your Primary Care Provider: Albert Zuleta MD [address] / [place] [address] For questions regarding this document or issues relating to this hospitalization on the Medical Service, please contact your inpatient physician through the [facility] Communications Consultant . Issues after hours and on weekends [...] Contact Information: Alcon [place] [address] Discharge References/Attachments: Discharge References/Attachments KIDNEY STONE (ZAMBIAN) KIDNEY STONE PREVENTION DIET: GENERAL INFO (ZAMBIAN) URETERAL STENT PLACEMENT: POST-OP (ZAMBIAN) URINARY TRACT: FEMALE: ANATOMY SKETCH (ZAMBIAN) For questions regarding this document or issues relating to this hospitalization on the Medical Service, please contact your inpatient physician through the [facility] Communications Consultant . Issues after hours and on weekends [...] 8:30 AM Crow Galvin Jr., MD [facility] Date and Time Provider and Specialty Location 9:00AM on 07/30/17 Albert Zuleta MD , PCP [address] / [facility] [address] Your Inpatient Doctor(s) at [facility]: MD Alcon Chauhan MD Michael A Pfeffer, MD Your Primary Care Provider: MD [address] / [facility] [id number] For questions regarding this document or issues relating to this hospitalization on the Medical Service, please contact your inpatient physician through the [facility] Communications Consultant . Issues after hours and on weekends [...] be sent through Care Everywhere. KIDNEY STONE (ZAMBIAN)KIDNEY STONE PREVENTION DIET: GENERAL INFO (ZAMBIAN) URETERAL STENT PLACEMENT: POST-OP (ZAMBIAN)URINARY TRACT: FEMALE: ANATOMY SKETCH (ZAMBIAN)documented in this encounter Medications at Time of [...] pt. Transportation to pick patient up at [facility] at 1830. Pt left unit withall personal belongings to home. Linda Rodriguez MD - 07/11/2018 8:17 AM EST INPATIENT DAILY PROGRESS NOTE Patient Name: Blossom Samayoa Patient Age: 57 y.o. Birthdate: 1960 Admit date: 07/09/2018 Attending Physician: Kelsey Eaton MD ID: Blossom Samayoa is a 57 y.o. female who presented to the [facility] ED??with nausea and vomiting.?Found on workup at OSH to have leukocytosis to 16, cr 1.04, elevated troponin to 0.8, UA with??+protein/mod blood/+nitrites/large LE, CT findings of Right hydronephrosis, large Right UPJ stone and obstructing Right UVJ stone.??She received 1g rocephin at [facility]. ?? The patient had been to the [facility] ED last month with complaints of Right flank pain and CT at that time 06/07/2018 showed a similar appearance to CT from earlier today. She was managed with oral pain medications and attempt to pass the smaller ureteral stones spontaneously. She was referred to [facility] Urology and was supposed to be seen [...] elliott Recent Labs 07/11/18 0743 07/10/18 0320 07/09/18 1950 WBC 8.5 12.0* 14.1* HGB 10.7* 12.4 12.5 HCT 32.4* 36.6 37.4 PLATELET 155 216 216 PT -- -- 13.1* INR -- -- 1.2 PTT -- -- 26 Recent Labs 07/10/18 0320 07/09/18 1950 NA 136 138 K 4.0 4.0 CL [...] understands this. DISPO: Stable on floor. Stephen J Krughoff, MD ADDENDUM: I have seen with patient [...] Underwood MD - 07/11/2018 6:58 AM EST [facility] Medicine Daily Progress Note Admit Date: 07/09/2018 Pt ID: Blossom Samayoa is a 57 y.o. Female with PMHx significant for obesity, nephrolithiasis, DM2, HTN, and reducible abdominal hernia who presents to [facility] as transfer from [facility] with concern for sepsis likely 2/2 to [...] the following: Recent Labs 07/11/18 0743 07/10/18 0320 07/09/181949 [...] Component Value Units Date/Time Urine culture Urine [[id number]] Collected: 07/10/18 1037 Lab Status: Final result Specimen: Urine Updated: 07/11/18 0748 Urine Culture No growth (Less than 1,000 cfu/ml). Urine culture [[id number]] Collected: 07/09/18 2221 Lab Status: Final result Specimen: Clean Catch Urine Updated: 07/11/18 0748 Urine Culture No growth (Less than 1,000 cfu/ml). Blood culture [[id number]] Collected: 07/09/182002 Lab Status: Preliminary result Specimen: Blood Updated: 07/10/18 2301 Blood Culture No growth at 1 day. Blood culture [[id number]] Collected: 07/09/181949 Lab Status: Preliminary result Specimen: Blood Updated: 07/10/18 2301 Blood Culture No growth at 1 day. Recent Labs 07/10/18 1037 URINECULTURE No growth (Less than 1,000 cfu/ml). Recent Labs 07/09/18194907/09/182002 BLOODCX No growth at 1 day. No [...] HTN,and reducible abdominal hernia who presents to [facility] as transfer from [facility] with concern for sepsis likely 2/2 to [...] Abx for now and touch base with [facility] for their micro studies given her history of recurrent UTIs. If she continues to do well, we will anticipate discharge today. ?? #Sepsis likely 2/2 to UTI vs Hydronephrosis - Continue: Ceftriaxone 2g IV daily - Pain control with Tylenol, per urology post-procedure - Hold anti-hypertensive medications, can consider re-initiating post procedure - Monitor: UCx and BCx - Touch base with [facility] regarding their microbiology studies ?? #DM2 - ISS - Gabapentin 600mg TID #Home Meds: Restart - Carvedilol 3.125mg BID - Lisinopril 5mg daily - Spironolactone 25mg daily #Other - DVT ppx: Lovenox - GI ppx: None indicated - Diet: CHO lvl 2 - Activity: As tolerated # Dispo: Floors Alcon Underwood MD TEAM/PAGER:[phone] Internal Medicine, PGY-1 07/11/2018 9:47 AM Associated [...] of two midnights or is on the [facility] inpatient only procedure list (status C) due to: UTI and nephrolithiasis with obstruction Juancarlos Watkins RN - 07/10/2018 1:44 PM EST Pt left in no distress, drinking water, c arturo rn Juancarlos Watkins RN - 07/10/2018 1:31 [...] changed lead placement, pt breathing easier now aschristiana gee rx specialist has given additional reversal agent. Janell Wilkins MD - 07/10/2018 7:43 AM EST Urology Inpatient Progress Note HPI: Blossom Samayoa is a 57 yo F with PMH as below who presented to the [facility] ED with nausea and vomiting for the past 1 day. Found on workup at OSH to have leukocytosis to 16, cr 1.04, elevated troponinto 0.8, UA with +protein/mod blood/+nitrites/large LE, CT findings of Right hydronephrosis, large Right UPJ stone and obstructing Right UVJ stone. She received 1g rocephin at [facility]. ?? The patient had been to the [facility] ED last month with complaints of Right flank pain and CT at that time 06/07/2018 showed a similar appearance to CT from earlier today. She was managed with oral pain medications and attempt to pass the smaller ureteral stones spontaneously. She was referred to [facility] Urology and was supposed to be seen [...] Neuro: no focal deficits Recent Labs 07/10/18 0320 07/09/18 1950 WBC 12.0* 14.1* HGB 12.4 12.5 HCT 36.6 37.4 PLATELET 216 216 PT -- 13.1* INR -- 1.2 PTT -- 26 Recent Labs 07/10/18 0320 07/09/18 1950 NA 136 138 K 4.0 4.0 CL [...] ?? She is well-appearing on arrival at [facility]. She is afebrile without clinic evidence of [...] ?? Janell Wilkins MD Consult Day Pager [phone] Alcon Underwood MD - 07/10/2018 7:16 AM EST [facility] Medicine Attending Daily Progress Note Admit Date: 07/09/2018 Pt ID: Blossom Samayoa is a 57 y.o. Female with PMHx significant for obesity, nephrolithiasis, DM2, HTN, and reducible abdominal hernia who presents to [facility] as transfer from [facility] with concern for sepsis likely 2/2 to [...] eDH. Remarkable for the following: Recent Labs 07/10/18 0320 07/09/181949 WBC 12.0* 14.1* HGB 12.4 12.5 HCT 36.6 37.4 PLATELET 216 216 Recent Labs 07/10/18 03207/09/181949 NA 136 138 K 4.0 4.0 CL [...] HTN,and reducible abdominal hernia who presents to [facility] as transfer from [facility] with concern for sepsis likely 2/2 to [...] # Dispo: Pending procedure Alcon Underwood MD TEAM/PAGER:[phone] Internal Medicine, PGY-1 07/10/2018 8:48 AM Associated [...] of two midnights or is on the [facility] inpatient only procedure list (status C) due [...] pain. On RA with SPO2 in the [id number], no SOB, appears in no apparent distress. [...] HTN,and reducible abdominal hernia who presents to [facility] as transfer from [facility] with concern for sepsis likely 2/2 to UTI or hydronephrosis/pylonephritis in the setting of long-standing known Calcium Oxalatenephrolithiasis and poor PO intake History of Present Illness: Blossom Samayoa is a 57 y.o. Female with PMHx significant for obesity, nephrolithiasis, DM2, HTN,and reducible abdominal hernia who presents to [facility] as transfer from [facility] with concern for sepsis likely 2/2 to [...] of water a day. She presented to [facility] where she reported I cannot keep anything down and given her history of abdominal hernia, raised concern for obstruction. Surgery was consulted and the hernia was reduced, but the patient's abdominal pain persisted. A U/A was performed which was concerning for a UTI. Of note, she has had 4 UTIs in the past [address] Chest Abdomen Pelvis at [facility] demonstrated a large stone impacted in the [...] HTN,and reducible abdominal hernia who presents to [facility] as transfer from [facility] with concern for sepsis likely 2/2 to [...] Admit to Hospital Medicine Red Team Pager #[phone] ?? DVT Prophylaxis: Lovenox 40mg subQ ?? [...] encounter Miscellaneous Notes Care Management - Shanae Barbsoa MSW - 07/11/2018 2:57 PM EST Social Work Progress Note BLUEPRINT TRIMMER met with this patient regarding her transportation concerns. Patient reports she did not drive down at recommendation of the hospital. Patient reports she has a friend who can drive her home, but could not come until 930pm and she was concerned about freezing rain. BLUEPRINT TRIMMER reviewed that I did not knowof any other transportation option, but reviewed that she could call [phone] to see if they had any options for her. TYRONE Schrader Handcrew Foreman Pager [phone] Care Management - Shanae Barbosa MSW - 07/11/2018 11:52 AM EST Social Work Progress Note BLUEPRINT TRIMMER attempted to meet with this patient, however she was not in her room at this time. TYRONE Schrader Handcrew Foreman Pager [phone] Plan of Care - Anne Munoz RN - 07/11/2018 6:53 AM EST [...] Wilkins MD - 07/10/2018 5:24 PM EST [facility] Operative Note Patient Name: Blossom Samayoa : [id number] MR#: [id number] Case Date: 07/10/2018 Surgeon: Surgeon(s) and Role: [...] Admission as Stated by Patient: Transferred from [facility] for possible surgery ?? 57 y/o with [...] wants to make her sister Mona Samayoa [phone] her MPOA BLUEPRINT TRIMMER consult placed for AD completion Current Coping/Education/Information [...] Insurance: N/A Prescription Coverage: no [facility] Primary Care Provider: Albert Zuleta MD [phone] Patient/Caregiver Goals of Treatment: home with MD [...] of care planning. Lisseth Becker RN Pager: [phone] Brief Op Note - Viky Sears MD - 07/10/2018 10:47 AM EST Brief Operative Note Patient Name: Blossom Samayoa : [id number] MR#: [id number] Case Date: 07/10/2018 Surgeon: Surgeon(s) and Role: [...] PMH as below who presented to the [facility] ED with nausea and vomiting for the past 1 day. Found on workup at OSH to have leukocytosis to 16, cr 1.04, elevated troponinto 0.8, UA with +protein/mod blood/+nitrites/large LE, CT findings of Right hydronephrosis, large Right UPJ stone and obstructing Right UVJ stone. She received 1g rocephin at [facility]. The patient had been to the [facility] ED last month with complaints of Right flank pain and CT at that time 06/07/2018 showed a similar appearance to CT from earlier today. She was managed with oral pain medications and attempt to pass the smaller ureteral stones spontaneously. She was referred to [facility] Urology and was supposed to be seen in clinic today for consultation but had presented to the ED instead. [facility], she is well appearing. She has [...] stones. She is well-appearing on arrival at [facility]. She is afebrile without clinic evidence of [...] -if patient decompensates overnight, contact urology resident healthcare market consultant for more emergent stent placement Janell Wilkins MD I reviewed this case with Dr. Wilkins. I reviewed the CT scan and agree with the assessment and plan. documented in this encounter Plan of Treatment Upcoming Encounters Date Type Specialty Care Team Description 03/15/2022 Office Visit Neurology Ryann Barfield APRN [facility] [address] [place] [address] 03/23/2022 Appointment Radiology Hailey Mcclendon MD [facility] 0375 03/23/2022 Laboratory Appointment Lab 03/23/2022 Office Visit Gastroenterology Hailey Mcclendon MD [facility] [place] 0375 05/23/2022 Procedure visit Maxillofacial Surgery Corby Montes MD [facility] [place] [phone] documented as [...] 07/09/2018 7:50 Results for this TO LAB ([facility]) PM EST procedure are in [...] Signature POC Glucose 178 65 - 199 [facility] mg/dL [facility] Comment: Supplemental ranges: <140 mg/dL before meals <180 mg/dL all other times of the day Specimen Anatomical Collection Method Collection Time Receive d Time (Source) Location / / Volume Laterality Blood specimen 07/11/2018 4:06 PM 018 4:06 (specimen) EST PM EST Kelsey Eaton MD POINT OF CARE TEST ORDERABLE S Performing Organization Address City/State/[place] [address] (ABNORMAL) POCT Glucose (07/11/2018 11:28 AM EST) athologist Signature POC Glucose 220 (H) 65 - 199 [facility] mg/dL [facility] Comment: Supplemental ranges: <140 mg/dL before meals <180 mg/dL all other times of the day Specimen Anatomical Collection Method Collection Time Receive d Time (Source) Location / / Volume Laterality Blood specimen 07/11/2018 11:28 8 (specimen) AM EST 11:28 AM EST Kelsey Eaton MD POINT OF CARE TEST ORDERABLE S Performing Organization Address City/State/[place] [address] Differential, Automated (07/11/2018 7:43 AM EST) P athologist Signature Neutrophils % 52.7 % [facility] Neutr Abs (ANC) 4.50 1.70 - [facility] 6.10 [facility] x10(3)/[facility] LABORATORY Lymphocytes % 35.9 % [facility] Lymphocytes Abs 3.1 0.9 - 3.2 [facility] x10(3)/[facility] LABORATORY Monocytes % 8.1 % [facility] Monocyte Abs 0.7 0.3 - 0.9 [facility] x10(3)/[facility] LABORATORY Eosinophils % 2.7 % [facility] Eosinophils Abs 0.2 0.0 - 0.4 [facility] x10(3)/[facility] LABORATORY Basophils % 0.2 % [facility] Basophils Abs 0.0 0.0 - 0.1 [facility] x10(3)/[facility] LABORATORY Immature Gran % 0.40 % [facility] Comment: Immature granulocytes(IG's)percentage an d absolute count will include metamyelocytes, myelocytes, and promyelo cytes. Blood smears from CBCs yielding IG's will be scanned manually for concor dance. If this scan disagrees with the automated IG or if promyelocytes are not ed, a manual differential will be performed. Irina Gran Abs 0.03 0.00 - 0.04 x10(3)/[facility] Y [facility] LABORATORY Specimen Anatomical Collection Method Collection Time Receive d Time (Source) Location / / Volume Laterality Blood specimen 07/11/2018 7:43 AM 018 7:49 (specimen) EST AM EST Resulting Agency Comment Spec In Lab Alcon Underwood MD HEMATOLOGY ORDERABLES Performing Organization Address City/State/[place] [address] (ABNORMAL) Hemogram (07/11/2018 7:43 AM EST) Analysis Performed At Patho logist Time Signature WBC 8.5 4.0 - 9.5 [facility] x10(3)/[facility] LABORATORY RBC 3.41 (L) 4.00 - [place] 5.21 [facility] x10(6)/[facility] LABORATORY Hemoglobin 10.7 (L) 11.7 - [facility] 15.5 gm/dL [facility] Hematocrit 32.4 (L) 35.7 - [facility] 45.8 % [facility] MCV 95.0 (H) 82.6 - [facility] 94.4 [facility] LABORATORY MCH 31.4 27.1 - [place] 32.0 pg [facility] MCHC 33.0 31.7 - [place] 35.0 gm/dL [facility] Platelets 155 145 - 357 [facility] x10(3)/[facility] LABORATORY RDWSD 43.1 37.0 - [facility] 46.0 [facility] LABORATORY RDWCV 12.4 11.5 - [place] 14.1 % [facility] MPV 9.9 7.6 - 12.9 [facility] LABORATORY nRBC % Auto 0.0 % [facility] LAB[facility] nRBC Abs Auto 0.000 0.000 - [place] 0.000 [facility] x10(3)/[facility] LABORATORY Specimen Anatomical Collection Method Collection Time Receive d Time (Source) Location / / Volume Laterality Blood specimen 07/11/2018 7:43 AM 018 7:49 (specimen) EST AM EST Resulting Agency Comment Spec In Lab Alcon Underwood MD HEMATOLOGY ORDERABLES Performing Organization Address City/State/[place] [address] (ABNORMAL) Basic Metabolic Panel (non-fasting) (07/11/2018 7:43 AM EST) P athologist Signature Glucose Lvl 202 (H) 65 - 199 [facility] mg/dL [facility] Comment: Diabetes: >=200 mg/dL plus symp toms BUN 9 8 - 18 mg/dL [facility] Creatinine 0.76 0.70 - 1.20 mg/dL [facility] Sodium 135 135 - 145 mmol/L [facility] Potassium 4.0 3.5 - 5.0 mmol/L [facility] Comment: Please note: ??Patients with WBC >100,00 0 may have falsely elevated Potassium levels. ??For accurate Potassium quantif ication in these patients send serum separator tube (gold top) for subsequent determinations. ??Contact the Clinical Chemistry Laboratory if there are any qu estions. Chloride 101 98 - 107 mmol/L [facility] CO2 23 22 - 31 mmol/L [facility] Anion Gap 11 5 - 15 mmol/L [facility] Calcium 9.6 8.5 - 10.5 mg/dL [facility] Estimated GFR 86 >=60 mL/min/1.73 m?? [facility] Comment: The eGFR was calculated using the CKD-EP I equation. As with all creatinine based estimates of kidney function, eGFR values calculated with the CKD-EPI equation are not accurate in patients wi th acute kidney failure, extremes of body mass or the acutely ill. http://[employer]/[facility] eGFR 100 >=60 mL/min/1.73 m?? [facility] Comment: The eGFR was calculated using the CKD-EP I equation. As with all creatinine based estimates of kidney function, eGFR values calculated with the CKD-EPI equation are not accurate in patients wi th acute kidney failure, extremes of body mass or the acutely ill. http://[employer]/DHnkf Specimen Anatomical Collection Method Collection Time Receive d Time (Source) Location / / Volume Laterality Blood specimen 07/11/2018 7:43 AM 018 7:49 (specimen) EST AM EST Resulting Agency Comment Spec In Lab Kelsey Eaton MD CHEMISTRY ORDERABLES Performing Organization Address City/State/[place] [address] (ABNORMAL) POCT Glucose (07/11/2018 6:58 AM EST) athologist Signature POC Glucose 206 (H) 65 - 199 [place] mg/dL [facility] Comment: Supplemental ranges: <140 mg/dL before meals <180 mg/dL all other times of the day Specimen Anatomical Collection Method Collection Time Receive d Time (Source) Location / / Volume Laterality Blood specimen 07/11/2018 6:58 AM 018 6:58 (specimen) EST AM EST Kelsey Eaton MD POINT OF CARE TEST ORDERABLE S Performing Organization Address City/State/ZIP Code Phon e Number [address] (ABNORMAL) POCT Glucose (07/10/2018 8:04 PM EST) athologist Signature POC Glucose 223 (H) 65 - 199 [facility] mg/dL [facility]ORY Comment: Supplemental ranges: <140 mg/dL before meals <180 mg/dL all other times of the day Specimen Anatomical Collection Method Collection Time Receive d Time (Source) Location / / Volume Laterality Blood specimen 07/10/2018 8:04 PM 018 8:04 (specimen) EST PM EST Kelsey Eaton MD POINT OF CARE TEST ORDERABLE S Performing Organization Address City/State/ZIP Code Phon e Number [address] POCT Glucose (07/10/2018 1:57 PM EST) athologist Signature POC Glucose 197 65 - 199 [place] mg/dL [facility] Comment: Supplemental ranges: <140 mg/dL before meals <180 mg/dL all other times of the day Specimen Anatomical Collection Method Collection Time Receive d Time (Source) Location / / Volume Laterality Blood specimen 07/10/2018 1:57 PM 018 1:57 (specimen) EST PM EST Kelsey Eaton MD POINT OF CARE TEST ORDERABLE S Performing Organization Address City/State/ZIP Code Phon e Number [address] (ABNORMAL) POCT Glucose (07/10/2018 12:31 PM EST) P athologist Signature POC Glucose 232 (H) 65 - 199 [facility] mg/dL [facility] Comment: Supplemental ranges: <140 mg/dL before meals <180 mg/dL all other times of the day Specimen Anatomical Collection Method Collection Time Receive d Time (Source) Location / / Volume Laterality Blood specimen 07/10/2018 12:31 8 (specimen) PM EST 12:31 PM EST Kelsey Eaton MD POINT OF CARE TEST ORDERABLE S Performing Organization Address City/[facility]/ZIP Code Phon e Number [address] (ABNORMAL) POCT Glucose (07/10/2018 11:14 AM EST) athologist Signature POC Glucose 238 (H) 65 - 199 [facility] mg/dL [facility] Comment: Supplemental ranges: <140 mg/dL before meals <180 mg/dL all other times of the day Specimen Anatomical Collection Method Collection Time Receive d Time (Source) Location / / Volume Laterality Blood specimen 07/10/2018 11:14 8 (specimen) AM EST 11:14 AM EST Kelsey Eaton MD POINT OF CARE TEST ORDERABLE S Performing Organization Address City/[facility]/ZIP Code Phon e Number [facility] [address] XR Fluoro No Rad [...] City/State/ZIP Code Phon e Number RAD RAD [place], [place] Urine culture Urine (07/10/2018 10:37 AM EST) [facility] [place] gist Method Time Signature Urine Culture No growth HAILEY ANDERSON (Less than [place] [address],[address] [place] [address] cfu/ml). LABORATORY Specimen Anatomical Collection Method Collection Time Receive d Time (Source) Location / / Volume Laterality Urine specimen 07/10/2018 10:37 8 (specimen) AM EST 11:02 AM EST Comment: RIGHT RENAL PELVIS Resulting Agency Comment Spec In Lab Viky Sears MD MICROBIOLOGY - GENERAL ORDER ELINA Performing Organization Address City/[facility]/[place] [address] (ABNORMAL) POCT Glucose (07/10/2018 8:07 AM EST) athologist Signature POC Glucose 235 (H) 65 - 199 [facility] mg/dL [facility] Comment: Supplemental ranges: <140 mg/dL before meals <180 mg/dL all other times of the day Specimen Anatomical Collection Method Collection Time Receive d Time (Source) Location / / Volume Laterality Blood specimen 07/10/2018 8:07 AM 018 8:07 (specimen) EST AM EST Kelsey Eaton MD POINT OF CARE TEST ORDERABLE S Performing Organization Address City/[facility]/[place] [address] (ABNORMAL) POCT Glucose (07/10/2018 4:16 AM EST) athologist Signature POC Glucose 202 (H) 65 - 199 [place] mg/dL [facility] Comment: Supplemental ranges: <140 mg/dL before meals <180 mg/dL all other times of the day Specimen Anatomical Collection Method Collection Time Receive d Time (Source) Location / / Volume Laterality Blood specimen 07/10/2018 4:16 AM 018 4:16 (specimen) EST AM EST Kelsey Eaton MD POINT OF CARE TEST ORDERABLE S Performing Organization Address City/[facility]/ZIP Code Phon e Number [address] (ABNORMAL) BMP w/fasting Glucose (07/10/2018 3:20 AM EST) athologist Signature Glucose 186 (H) 65 - 99 [place] Fasting mg/dL [facility] Comment: ?Fasting* Glucose Interpretive C [...] of Diabetes Mellitus, Position Statement from the [employer]. ??Diabete s Care, Volume 33, Supplement 1, Jul 2009 BUN 13 8 - 18 mg/dL [facility] LABORATORY Creatinine 0.77 0.70 - 1.20 mg/dL [facility] LABORATORY Sodium 136 135 - 145 mmol/L [facility] LABOR[facility]ORY Potassium 4.0 3.5 - 5.0 mmol/L [facility] Comment: Please note: ??Patients with WBC >100,00 0 may have falsely elevated Potassium levels. ??For accurate Potassium quantif ication in these patients send serum separator tube (gold top) for subsequent determinations. ??Contact the Clinical Chemistry Laboratory if there are any qu estions. Chloride 99 98 - 107 mmol/L [facility] LABORATORY CO2 21 (L) 22 - 31 mmol/L [facility] LABOR[facility]ORY Anion Gap 16 (H) 5 - 15 mmol/L [facility] LABORATORY Calcium 9.6 8.5 - 10.5 mg/dL [facility] LAB[facility]ORY Estimated GFR 85 >=60 mL/min/1.73 m?? [facility] LABORATORY Comment: The eGFR was calculated using the CKD-EP I equation. As with all creatinine based estimates of kidney function, eGFR values calculated with the CKD-EPI equation are not accurate in patients wi th acute kidney failure, extremes of body mass or the acutely ill. http://[employer]/[facility] ADAnkf eGFR 99 >=60 mL/min/1.73 m?? [facility] LABORATORY Comment: The eGFR was calculated using the CKD-EP I equation. As with all creatinine based estimates of kidney function, eGFR values calculated with the CKD-EPI equation are not accurate in patients wi th acute kidney failure, extremes of body mass or the acutely ill. http://[employer]/DHMCnkf Specimen Anatomical Collection Method Collection Time Receive d Time (Source) Location / / Volume Laterality Blood specimen 07/10/2018 3:20 AM 018 3:23 (specimen) EST AM EST Resulting Agency Comment Spec In Lab Leon Bass MD CHEMISTRY ORDERABLES Performing Organization Address City/State/[place] [address] (ABNORMAL) Differential, Automated (07/10/2018 3:20 AM EST) [facility] [place] gist Method Time Signature Neutrophils % 54.3 % [facility] LABORATORY Neutr Abs (ANC) 6.51 (H) 1.70 - [facility] 6.10 [facility] x10(3)/[facility] LABORATORY Lymphocytes % 33.8 % [facility] LABORATORY Lymphocytes Abs 4.0 (H) 0.9 - 3.2 [facility] x10(3)/[facility] LABORATORY Monocytes % 8.8 % [facility] LABORATORY Monocyte Abs 1.0 (H) 0.3 - 0.9 [facility] x10(3)/[facility] LABORATORY Eosinophils % 2.6 % [facility] LABORATORY Eosinophils Abs 0.3 0.0 - 0.4 [facility] x10(3)/[facility] LABORATORY Basophils % 0.3 % [facility] LABORATORY Basophils Abs 0.0 0.0 - 0.1 [facility] x10(3)/[facility] LABORATORY Immature Gran % 0.20 % [facility] LABORATORY Comment: Immature granulocytes(IG's)percentage an d absolute count will include metamyelocytes, myelocytes, and promyelo cytes. Blood smears from CBCs yielding IG's will be scanned manually for concor dance. If this scan disagrees with the automated IG or if promyelocytes are not ed, a manual differential will be performed. Irina Gran Abs 0.02 0.00 - 0.04 x10(3)/[facility] LABORATORY Specimen Anatomical Collection Method Collection Time Receive d Time (Source) Location / / Volume Laterality Blood specimen 07/10/2018 3:20 AM 018 3:23 (specimen) EST AM EST Resulting Agency Comment Spec In Lab Maylin Broussard MD HEMATOLOGY ORDERABLES Performing Organization Address City/State/[place] [address] (ABNORMAL) Hemogram (07/10/2018 3:20 AM EST) Analysis Performed At Patho logist Time Signature WBC 12.0 (H) 4.0 - 9.5 [facility] x10(3)/[facility] LABORATORY RBC 3.90 (L) 4.00 - [facility] 5.21 [facility] x10(6)/[facility] LABORATORY Hemoglobin 12.4 11.7 - [facility] 15.5 gm/dL [facility] Hematocrit 36.6 35.7 - [facility] 45.8 % [facility] MCV 93.8 82.6 - [facility] 94.4 [facility] LABORATORY MCH 31.8 27.1 - [facility] 32.0 pg [facility] LABORATORY MCHC 33.9 31.7 - [facility] 35.0 gm/dL [facility] Platelets 216 145 - 357 [facility] x10(3)/[facility] LABORATORY RDWSD 42.8 37.0 - [facility] 46.0 [facility] LABORATORY RDWCV 12.4 11.5 - [facility] 14.1 % [facility] LABORATORY MPV 9.7 7.6 - 12.9 [facility] LABORATORY nRBC % Auto 0.0 % [facility] LABORATORY nRBC Abs Auto 0.000 0.000 - [facility] 0.000 [facility] x10(3)/[facility] LABORATORY Specimen Anatomical Collection Method Collection Time Receive d Time (Source) Location / / Volume Laterality Blood specimen 07/10/2018 3:20 AM 018 3:23 (specimen) EST AM EST Resulting Agency Comment Spec In Lab Maylin Broussard MD HEMATOLOGY ORDERABLES Performing Organization Address City/[facility]/[place] [address] Triglyceride (07/10/2018 3:20 AM EST) P athologist Signature Triglycerides 271 mg/dL [facility] LABORATORY Comment: Average Risk/Lower Risk: <150 mg/dL Borderline High Risk: 150-199 mg/dL High Risk: 200-499 mg/dL Very High Risk: >kt=263 mg/dL Specimen Anatomical Collection Method Collection Time Receive d Time (Source) Location / / Volume Laterality Blood specimen 07/10/2018 3:20 AM 018 3:23 (specimen) EST AM EST Resulting Agency Comment Spec In Lab Kelsey Eaton MD CHEMISTRY ORDERABLES Performing Organization Address City/[facility]/[place] [address] HDL/Cholesterol Profile (07/10/2018 3:20 AM EST) athologist Signature Chol, Total 127 mg/dL [facility] LABORATORY Comment: Lower Risk: <200 mg/dL Average Risk: 200-239 mg/dL Higher Risk: >ol=090 mg/dL HDL 34 mg/dL [facility] LABORATORY Comment: Males: ?? Higher Risk: <40 mg/dL Females: ?? HIgher Risk: <50 mg/dL Chol/HDL Ratio 3.7 ratio [facility] LABORATORY Chol/HDL Interpretation See Note [facility] LABORATORY Comment: Lipid management should be guided by a p atient? s ASCVD risk, goals and preferences. ACC/AHA Guidelines recommend high intens ity statin if clinical ASCVD or LDL greater than or equal to 190 mg/dL. http://[employer] Travelurl.com/BZE-CDL-Ngrmcgzyo Measure LDL if Total Cholesterol minus H DL Cholesterol is greater than 220 mg/dL. Adults aged 40-75 with LDL 70-189 mg/dL should have their 10 year ASCVD risk estimated with the ACC/AHA ASCVD risk es timator http://tools.acc.org/MREUL-Jndk-Tqfzwogd r/ Statin should be discussed if risk [...] Eaton MD CHEMISTRY ORDERABLES Performing Organization Address City/[facility]/[place] [address] LDL Cholesterol, Direct (07/10/2018 3:20 AM EST) P athologist Signature LDL Chol 62 mg/dL [facility] LABORATORY Comment: Lowest Risk: <100 mg/dL Lower Risk: 100-129 mg/dL Borderline High Risk: 130-159 mg/dL High Risk: 160-189 mg/dL Very High Risk: >bw=948 mg/dL Specimen Anatomical Collection Method Collection Time Receive d Time (Source) Location / / Volume Laterality Blood specimen 07/10/2018 3:20 AM 018 3:23 (specimen) EST AM EST Resulting Agency Comment Spec In Lab Kelsey Eaton MD CHEMISTRY ORDERABLES Performing Organization Address City/[facility]/[place] [address] (ABNORMAL) Hemoglobin A1c (07/10/2018 3:20 AM EST) Analysis Performed At Patho logist Time Signature Hemoglobin A1C 7.8 (H) 4.3 - 5.6 [facility] LABORATORY Comment: Reference Range: 4.3 - 5.6% [...] Mellitus, Diabetes Care 2013; 36: Suppl. 1, S67-38 Est Avg Gluc 177 mg/dL [facility] AND[facility] LABORATORY Comment: eAG equivalents for HbA1c percentages: HbA1c(%) ?eAG(mg/dL) 6.0 ?126 6.5 ?140 7.0 ?154 7.5 ?169 8.0 ?183 8.5 ?197 9.0 ?212 9.5 ?226 10.0 ? 240 Limitations: The eAG calculation has not been validated on women, individuals below 18 years old and above 70 years old, and individuals with hemoglobinopathies. Additional resources are available on [facility] ADA website. Godfrey VALENCIA, Yumiko J, Herminia R, et al. ??Tr anslating the A1C assay into estimated average glucose values. ??Diabetes Care 2008:31(8):3352-4460. Specimen Anatomical Collection Method Collection Time Receive d Time (Source) Location / / Volume Laterality Blood specimen 07/10/2018 3:20 AM 018 3:23 (specimen) EST AM EST Resulting Agency Comment Spec In Lab Kelsey Eaton MD CHEMISTRY ORDERABLES Performing Organization Address City/State/ZIP Code Phon [place] [address] POCT Glucose (07/10/2018 12:07 AM EST) athologist Signature POC Glucose 196 65 - 199 [place] mg/dL [facility] Comment: Supplemental ranges: <140 mg/dL before meals <180 mg/dL all other times of the day Specimen Anatomical Collection Method Collection Time Receive d Time (Source) Location / / Volume Laterality Blood specimen 07/10/2018 12:07 8 (specimen) AM EST 12:07 AM EST Kelsey Eaton MD POINT OF CARE TEST ORDERABLE S Performing Organization Address City/[facility]/ZIP Code Phon e Number [address] Urine culture (07/09/2018 10:21 PM EST) Patholo gist Method Time Signature Urine Culture No growth HAILEY ANDERSON (Less than [facility] 1,000 [facility] cfu/ml). LABORATORY Specimen (Source) Anatomical Collection Method Collection Time Re ceived Time Location / / Volume Laterality Urine specimen 07/09/2018 10:21 8 7:23 obtained by clean PM EST AM EST catch procedure (specimen) Resulting Agency Comment Spec In Lab Leon Bass MD MICROBIOLOGY - GENERAL ORDER ELINA Performing Organization Address City/[facility]/ZIP Code Phon e Number [address] (ABNORMAL) Urinalysis Microscopic Exam (07/09/2018 10:21 PM EST) Analysis Performed At Patho logist Time Signature RBC UA 60 (H) 0 - 4 /HPF [facility] LABORATORY WBC UA >182 (H) 0 - 5 /HPF [facility] LABORATORY Bacteria UA Rare (A) None /HPF [facility] LABORATORY Squam Epith UA 2 <=4 /HPF [facility] LABORATORY Specimen (Source) Anatomical Collection Method Collection Time Re ceived Time Location / / Volume Laterality Urine specimen 07/09/2018 10:21 8 3:12 obtained by clean PM EST AM EST catch procedure (specimen) Resulting Agency Comment Spec In Lab Leon Bass MD URINE ORDERABLES Performing Organization Address City/State/ZIP Code Phon e Number [address] (ABNORMAL) Urinalysis with reflex Culture (07/09/2018 10:21 PM EST) [facility] Method Time Signature Glucose UA Negative Negative [facility] LAB[facility] Protein UA 30 (A) Negative [facility] mg/dL [facility] LABORATORY Bilirubin UA Negative Negative [facility] mg/dL [facility] LAB[facility] Comment: Clinical correlation required for positi ve Urine Bilirubin results as false positive may occur with some drugs and d rug related products. If a false positive is suspected a serum total bili bailon should be considered if clinically indicated. Urobilinogen UA Normal Normal mg/dL [facility] LABORATORY pH UA 6.0 5.0 - 8.0 [facility] LABORATORY Blood UA Moderate (A) Negative mg/dL [facility] LABORATORY Ketones UA Negative Negative mg/dL [facility] LABORATORY Nitrite UA Negative Negative [facility] LABORATORY Leukocytes UA Large (A) Negative [facility] LABORATORY Appearance UA Cloudy (A) Clear [facility] LABORATORY Spec Bronson UA 1.028 1.002 - 1.030 [facility] LABORATORY Color UA Yellow Yellow [facility] LABORATORY Culture Reflexed Yes [facility] LABORATORY Specimen (Source) Anatomical Collection Method Collection Time Re ceived Time Location / / Volume Laterality Urine specimen 07/09/2018 10:21 8 3:12 obtained by clean PM EST AM EST catch procedure (specimen) Resulting Agency Comment Spec In Lab Kelsey Eaton MD URINE ORDERABLES Performing Organization Address City/State/[place] [address] Blood culture (07/09/2018 8:03 PM EST) [facility] Method Time Signature Blood Culture No growth [facility] at 5 days. [facility] LABORATORY Specimen Anatomical Collection Method Collection Time Receive d Time (Source) Location / / Volume Laterality Blood specimen 07/09/2018 8:03 PM 018 8:11 (specimen) EST PM EST Comment: LH Resulting Agency Comment Spec In Lab Kelsey Eaton MD MICROBIOLOGY - BLOOD ORDERAB LES Performing Organization Address City/State/ZIP Code Phon e Number [address] (ABNORMAL) POCT Glucose (07/09/2018 8:01 PM EST) P athologist Signature POC Glucose 201 (H) 65 - 199 [facility]/dL [facility] Comment: Supplemental ranges: <140 mg/dL before meals <180 mg/dL all other times of the day Specimen Anatomical Collection Method Collection Time Receive d Time (Source) Location / / Volume Laterality Blood specimen 07/09/2018 8:01 PM 018 8:01 (specimen) EST PM EST Kelsey Eaton MD POINT OF CARE TEST ORDERABLE S Performing Organization Address City/State/ZIP Code Phon e Number [address] (ABNORMAL) Differential, Automated (07/09/2018 7:50 PM EST) Patholo gist Method Time Signature Neutrophils % 65.5 % [facility] LABORATORY Neutr Abs (ANC) 9.26 (H) 1.70 - [facility] 6.10 [facility] x10(3)/[facility] LABORATORY Lymphocytes % 23.9 % [facility] LABORATORY Lymphocytes Abs 3.4 (H) 0.9 - 3.2 [facility] x10(3)/[facility] LABORATORY Monocytes % 8.6 % [facility] LABORATORY Monocyte Abs 1.2 (H) 0.3 - 0.9 [facility] x10(3)/[facility] LABORATORY Eosinophils % 1.3 % [facility] LABORATORY Eosinophils Abs 0.2 0.0 - 0.4 [facility] x10(3)/[facility] LABORATORY Basophils % 0.3 % [facility] LABORATORY Basophils Abs 0.0 0.0 - 0.1 [facility] x10(3)/[facility] LABORATORY Immature Gran % 0.40 % [facility] LABORATORY Comment: Immature granulocytes(IG's)percentage an d absolute count will include metamyelocytes, myelocytes, and promyelo cytes. Blood smears from CBCs yielding IG's will be scanned manually for concor dance. If this scan disagrees with the automated IG or if promyelocytes are not ed, a manual differential will be performed. Irina Gran Abs 0.05 (H) 0.00 - 0.04 x10(3)/[facility] LABORATORY Specimen Anatomical Collection Method Collection Time Receive d Time (Source) Location / / Volume Laterality Blood specimen 07/09/2018 7:50 PM 018 7:56 (specimen) EST PM EST Resulting Agency Comment Spec In Lab Leon Bass MD HEMATOLOGY ORDERABLES Performing Organization Address City/State/[place] [address] (ABNORMAL) Hemogram (07/09/2018 7:50 PM EST) Analysis Performed At Patho logist Time Signature WBC 14.1 (H) 4.0 - 9.5 [facility](3[facility] LABORATORY RBC 3.96 (L) 4.00 - [facility] 5.21 [facility] x10(6)/[facility] LABORATORY Hemoglobin 12.5 11.7 - [facility] 15.5 gm/dL [facility] LABORATORY Hematocrit 37.4 35.7 - [facility] 45.8 % [facility] LABORATORY MCV 94.4 82.6 - [facility] 94.4 [facility] LABORATORY MCH 31.6 27.1 - [facility] 32.0 pg [facility] LABORATORY MCHC 33.4 31.7 - [facility] 35.0 gm/dL [facility] LABORATORY Platelets 216 145 - 357 [facility] x10(3)/[facility] LABORATORY RDWSD 43.2 37.0 - [facility] 46.0 [facility] LABORATORY RDWCV 12.4 11.5 - [facility] 14.1 % [facility] LABORATORY MPV 9.9 7.6 - 12.9 [facility] nRBC % Auto 0.0 % [facility] LABORATORY nRBC Abs Auto 0.000 0.000 - [facility] 0.000 [facility] x10(3)/[facility] LABORATORY Specimen Anatomical Collection Method Collection Time Receive d Time (Source) Location / / Volume Laterality Blood specimen 07/09/2018 7:50 PM 018 7:56 (specimen) EST PM EST Resulting Agency Comment Spec In Lab Leon Bass MD HEMATOLOGY ORDERABLES Performing Organization Address City/[facility]/ZIP Code Phon e Number [address] Lactate, whole blood, send to lab (Leb/CGP) (07/09/2018 7:50 PM EST) P athologist Signature Lactate WB 1.7 0.5 - 2.2 [facility] mmol/L [facility] LABORATORY Specimen Anatomical Collection Method Collection Time Receive d Time (Source) Location / / Volume Laterality Blood specimen 07/09/2018 7:50 PM 018 7:56 (specimen) EST PM EST Resulting Agency Comment Spec In Lab Kelsey Eaton MD CHEMISTRY ORDERABLES Performing Organization Address City/[facility]/[place] [address] Blood culture (07/09/2018 7:50 PM EST) [facility] gist Method Time Signature Blood Culture No growth HAILEY ANDERSON at 5 days. [facility] LABORATORY Specimen Anatomical Collection Method Collection Time Receive d Time (Source) Location / / Volume Laterality Blood specimen 07/09/2018 7:50 PM 018 8:01 (specimen) EST PM EST Comment: RH Resulting Agency Comment Spec In Lab Kelsey Eaton MD MICROBIOLOGY - BLOOD ORDERAB LES Performing Organization Address City/[facility]/[place] [address] APTT (07/09/2018 7:50 PM EST) P athologist Signature PTT 26 25 - 37 sec [facility] LABORATORY Comment: The PTT is [...] Eaton MD HEMATOLOGY ORDERABLES Performing Organization Address [facility]/ZIP [facility] [place] [address] (ABNORMAL) Prothrombin Time (07/09/2018 7:50 PM EST) athologist Signature PT 13.1 (H) 9.4 - 12.5 [facility] LABORATORY INR 1.2 [facility] LABORATORY Comment: An INR <2.0 [...] Eaton MD HEMATOLOGY ORDERABLES Performing Organization Address City/[facility] [place] [address] (ABNORMAL) Hepatic Function Panel (07/09/2018 7:50 PM EST) P athologist Signature Total Protein 6.9 6.1 - 8.0 [facility] [place] gm/dL [facility] Albumin 3.8 3.2 - 5.2 [place] gm/dL [facility] AST 32 (H) 0 - 30 [facility] unit/L [facility] ALT 25 0 - 30 [place] unit/L [facility] Alk Phos 73 40 - 104 [facility] unit/L [facility] Total 1.2 0.2 - 1.3 [place] Bilirubin mg/dL [facility] Bili, Direct 0.3 0.0 - 0.3 [place] mg/dL [facility] Specimen Anatomical Collection Method Collection Time Receive d Time (Source) Location / / Volume Laterality Blood specimen 07/09/2018 7:50 PM 018 7:56 (specimen) EST PM EST Resulting Agency Comment Spec In Lab Kelsey Eaton MD CHEMISTRY ORDERABLES Performing Organization Address City/[facility]/ZIP Code Phon e Number [address] (ABNORMAL) Phosphorus (07/09/2018 7:50 PM EST) P athologist Signature Phosphorus 2.0 (L) 2.5 - 4.5 [facility] mg/dL [facility] Specimen Anatomical Collection Method Collection Time Receive d Time (Source) Location / / Volume Laterality Blood specimen 07/09/2018 7:50 PM 018 7:56 (specimen) EST PM EST Resulting Agency Comment Spec In Lab Kelsey Eaton MD CHEMISTRY ORDERABLES Performing Organization Address City/[facility]/[place] [address] (ABNORMAL) Magnesium (07/09/2018 7:50 PM EST) P athologist Signature Magnesium 0.65 (L) 0.69 - 1.07 [facility] mmol/L [facility] Specimen Anatomical Collection Method Collection Time Receive d Time (Source) Location / / Volume Laterality Blood specimen 07/09/2018 7:50 PM 018 7:56 (specimen) EST PM EST Resulting Agency Comment Spec In Lab Kelsey Eaton MD CHEMISTRY ORDERABLES Performing Organization Address City/[facility]/[place] [address] (ABNORMAL) Basic Metabolic Panel (non-fasting) (07/09/2018 7:50 PM EST) P athologist Signature Glucose Lvl 206 (H) 65 - 199 [place] mg/dL [facility] Comment: Diabetes: >=200 mg/dL plus symp toms BUN 14 8 - 18 mg/dL [facility] Creatinine 0.76 0.70 - 1.20 mg/dL [facility] Sodium 138 135 - 145 mmol/L [facility] LABOR[facility] Potassium 4.0 3.5 - 5.0 mmol/L [facility] LAB[facility] Comment: Please note: ??Patients with WBC >100,00 0 may have falsely elevated Potassium levels. ??For accurate Potassium quantif ication in these patients send serum separator tube (gold top) for subsequent determinations. ??Contact the Clinical Chemistry Laboratory if there are any qu estions. Chloride 102 98 - 107 mmol/L [facility] LABORATORY CO2 24 22 - 31 mmol/L [facility] Anion Gap 12 5 - 15 mmol/L [facility] Calcium 9.8 8.5 - 10.5 mg/dL [facility] Estimated GFR 86 >=60 mL/min/1.73 m?? [facility] LABOR[facility] Comment: The eGFR was calculated using the CKD-EP I equation. As with all creatinine based estimates of kidney function, eGFR values calculated with the CKD-EPI equation are not accurate in patients wi th acute kidney failure, extremes of body mass or the acutely ill. http://[employer]/[facility] eGFR 100 >=60 mL/min/1.73 m?? [facility] LABORATORY Comment: The eGFR was calculated using the CKD-EP I equation. As with all creatinine based estimates of kidney function, eGFR values calculated with the CKD-EPI equation are not accurate in patients wi th acute kidney failure, extremes of body mass or the acutely ill. http://[employer]/[facility] Specimen Anatomical Collection Method Collection Time Receive d Time (Source) Location / / Volume Laterality Blood specimen 07/09/2018 7:50 PM 018 7:56 (specimen) EST PM EST Resulting Agency Comment Spec In Lab Kelsey Eaton MD CHEMISTRY ORDERABLES Performing Organization Address City/State/[place] [address] EKG 12 Lead (07/09/2018 6:18 PM EST) [facility] gist Method Time Signature Ventricular rate 90 BPM MUSE SYSTEM Atrial Rate 90 BPM MUSE SYSTEM P-R Interval 176 ms MUSE SYSTEM QRS Duration 140 ms MUSE SYSTEM Q-T Interval 358 ms MUSE SYSTEM QTC Calculated 437 ms MUSE SYSTEM (Bezet) Calculated P [place] 61 degrees MUSE SYSTEM Calculated R [place] 1 degrees MUSE SYSTEM Calculated T [place] 165 degrees MUSE SYSTEM INTERPRETATION Normal sinus rhythm MUSE SYSTEM Left bundle branch block Abnormal ECG No previous ECGs available Confirmed by MD Rajendra, Joni Hardin ([id number]) on 07/10/2018 10:43:24 PM Specimen Anatomical Collection Method Collection Time Receive d Time (Source) Location / / Volume Laterality 07/09/2018 6:18 PM 8 EST 10:43 PM EST Kelsey Eaton MD ECG ORDERABLES Performing Organization Address City/State/ZIP Code Phon e Number MUSE SYSTEM (ABNORMAL) POCT Glucose (07/09/2018 5:06 PM EST) athologist Signature POC Glucose 209 (H) 65 - 199 [facility] mg/dL [facility] Comment: Supplemental ranges: <140 mg/dL before meals <180 mg/dL all other times of the day Specimen Anatomical Collection Method Collection Time Receive d Time (Source) Location / / Volume Laterality Blood specimen 07/09/2018 5:06 PM 018 5:06 (specimen) EST PM EST Latoya Merrill MD POINT OF CARE TEST ORDERABLE S Performing Organization Address City/[facility]/[place] [address] Urine Hold (07/09/2018 3:05 AM EST) athologist Signature Urine Hold Sample in [facility] lab. [facility] LABOR[facility] Specimen Anatomical Collection Method Collection Time Receive d Time (Source) Location / / Volume Laterality Urine specimen Urine / Unknown 07/09/2018 3:05 AM 06/22 3:13 (specimen) EST AM EST Leon Bass MD URINE ORDERABLES Performing Organization Address City/[facility]/ZIP Code Phon e Number [place] [id number] documented in this encounter Visit Diagnoses Diagnosis Sepsis, due to unspecified organism Ureteral stone Calculus of ureter Nephrolithiasis Calculus of kidney Ureteral stone Calculus of ureter documented in this encounter Admitting Diagnoses Diagnosis Nephrolithiasis Calculus of kidney documented in this encounter Administered Medications Inactive Administered Medications - up to 3 most recent administrations Medication Order MAR Action Action Date Dose Rate Site acetaminophen (TYLENOL) tablet Given 07/10/2018 11:52 PM EST 650 mg 650 mg 650 mg, Oral, EVERY 6 HOURS PRN, Starting on Sun07/09/18 at 1915, Until Sun07/11/18 at 1957, Pain, Fever, Administer for temperature greater than or equal to 38.2 degrees celsius. Maximum daily dose of acetaminophen from all sources not to exceed 4,000 mg., Routine Given 07/10/2018 12:36 PM EST 650 mg Given 07/10/2018 3:21 AM EST 650 mg aspirin chewable tablet 81 mg Given 07/11/2018 4:10 PM EST 81 mg 81 mg, Oral, DAILY, First dose on Sun07/11/18 at 1500, Until Discontinued, Routine carvedilol (COREG) tablet 3.125 mg Given 07/11/2018 4:10 PM EST 3.125 mg 3.125 mg, Oral, 2 TIMES DAILY WITH MEALS, First dose on Sun07/11/18 at 1000, Until Discontinued, Routine Given 07/11/2018 11:39 AM EST 3.125 mg cefpodoxime (VANTIN) tablet 200 mg Given 07/11/2018 5:55 PM EST 200 mg 200 mg, Oral, 2 TIMES DAILY, 24 doses, First dose (after last modification) on Sun07/11/18 at 1800, Last dose on Sun07/23/18 at 0900, Routine dextrose 50% IV syringe 25-50 mL 25-50 mL (12.5-25 g), Intravenous, EVERY 1 HOUR PRN, Starting on Sun07/09/18 at 1912, Until Sun07/11/18 at 1957, Low bl ood sugar, For BG 50-70: [...] Matilda chaparro insulin lispro (HumaLOG) VIAL injection 2-8 Given [...] Given 07/11/2018 7:32 AM EST 6 Units iohexol (OMNIPAQUE) 300 mg/mL solution Given 07/10/2018 10:43 AM EST 5 mLs ONCE PRN, Starting on Sun07/10/18 at 1043, Until Sun07/11/18 at 1958, Intra-Operative (Intra-Procedure), Routine lisinopril (PRINIVIL;ZESTRIL) tablet 5 m g Given 07/11/2018 11:39 AM EST 5 mg 5 mg, Oral, DAILY, First dose on Sun07/11/18 at 1000, Until Discontinued, Routine sodium chloride 0.9 % flush 5 mL Given 07/11/2018 9:00 AM EST 5 mLs 5 mL, Intravenous, 2 TIMES DAILY, First dose on Sun07/09/18 at 2100, Until Discontinued, Routine Given 07/10/2018 8:26 PM EST 5 mLs Given 07/10/2018 8:16 AM EST 5 mLs spironolactone (ALDACTONE) tablet 25 mg Given 07/11/2018 [...] 3.125 mg 1139 (Given - Provider: Cassandra Sofia, BRYAN)1610 (Given - Provider: Cassandra Sofia, RN) 3.125 mg, Oral, 2 TIMES DAILY WITH MEALS , First dose on Sun07/11/18 at 1000, Until Discontinued, Routine cefpodoxime (VANTIN) tablet 200 mg 200 mg, Oral, 2 TIMES DAILY, 24 doses, F irst dose on Sun07/11/18 at 2100, Last dose on Sun07/23/18 at 0900, Routine cefpodoxime (VANTIN) tablet 200 mg 1755 (Given - Provider: Cassandra Sofia, BRYAN) 200 mg, Oral, 2 TIMES DAILY, 24 doses, F irst dose on Sun07/11/18 at 1800, Last dose on Sun07/23/18 at 0900, Routine cefTRIAXone (ROCEPHIN) 2 g vial attach t o sodium chloride 0.9% 50 mL Mini-Bag Plus (CANCELED) 2031 (New Bag - Provider: Maxine beach RN)2101 (Stopped - Provider: Maxine May, RN) 0956 (SEP Hold - Provider: Admin Adt - R carol: Transfer to a Procedural area)122 (SEP Unhold - Provider: Cristina Recinos RN)2033 (New Bag - Provider: Ryann Corbett, RN)2103 (Stopped - Provider: Maxine May, RN) 2 g, Intravenous, EVERY 24 HOURS, First dose on Sun07/09/18 at 2100, Until Discontinued, Administer over 30 Minutes, Indication for (Active or Suspected): Urinary Tract/Pyelonephritis docusate sodium (COLACE) capsule 100 mg 2000 (Not Give n - Provider: Maxine May RN - Reason: Patient/family refused) 09 (Not Given - Provider: Cindi Lopez RN - Reason: Patient/family refused)0956 ([facility] Hold - Provider: Admin Adt - Reason: Transfer to a Procedural area)134 ([facility] Unhold - Provider: Admin Adt) 0900 (Not Given - Provider: Marisol Grimaldo RN - Reason: Patient/family refused) 100 mg, Oral, 2 TIMES DAILY, First dose on Sun07/09/18 at 2100, Until Discontinued, Routine 2099 (Not Given - Provider: Ryann Corbett RN - Reason: Patient/family refused) enoxaparin (LOVENOX) injection 40 mg 2008 (Given - Pro vider: Maxine May RN) 0956 ([facility] Hold - Provider: Admin Adt - R carol: Transfer to a Procedural area)134 ([facility] Unhold - Provider: Admin Adt)2025 (Given - Provider: Ryann Corbett, BRYAN) 40 mg, Subcutaneous, NIGHTLY, First dose on Sun07/09/18 at 2100, Until Discontinued, Routine gabapentin (NEURONTIN) capsule 600 mg 2307 (Given - Pr ovider: Maxine May RN) 0816 (Given - Provider: Cindi Lopez RN)0956 ([facility] Hold - Provider: Admin Adt - Reason: Transfer to a Procedural area)1348 ([facility] Unhold - Provider: Admin Adt)1450 (Given - Provider: Cindi Lopez, BRYAN)2025 (Given - Provider: Ryann Corbett RN) 0859 (Given - Provider: Marisol smalls, BRYAN)1434 (Given - Provider: Cassandra Sofia, BRYAN) 600 mg, Oral, 3 TIMES DAILY, First dose on Sun07/09/18 at 2130, Until Discontinued, Routine insulin lispro (HumaLOG) VIAL injection 1-4 Units (CAN CELED) 2030 (Given - Provider: Maxine May, BRYAN) 0010 (Given - Provider: Maxine porras RN)0417 (Given - Provider: Maxine May, RN) 1-4 Units, Subcutaneous, EVERY 4 HOURS [...] Admin Adt)1225 ([facility] Unhold - Provider: Cristina Recinos RN) 0732 (Given - Provider: Cassandra Sofia, BRYAN)1140 (Given - Provider: Cassandra Sofia, BRYAN)1610 (Given - Provider: Cassandra Sofia, BRYAN) 2-8 [...] mg (COMPLETED) 1450 (Given - Provider: Cindi Lopez, BRYAN) 15 mg, Intravenous, ONCE, 1 dose, Sun07/10/18 at 1500, Routine ketorolac (TORADOL) injection 15 mg (COMPLETED) 0610 (Given - Provider: Anne Munoz, BRYAN) 15 mg, Intravenous, ONCE, 1 dose, Sun07/11/18 at 0630, Routine ketorolac (TORADOL) injection 15 mg (COMPLETED) 1225 (Given - Provider: Cassandra Sofia, BRYAN) 15 mg, Intravenous, ONCE, 1 dose, Sun07/11/18 at 1245, Routine lisinopril (PRINIVIL;ZESTRIL) tablet 5 mg 1139 (Given - Provider: Cassandra Sofia, BRYAN) 5 mg, Oral, DAILY, First dose on Sun at 1000, Until Discontinued, Routine magnesium sulfate 1g in dextrose 5% 100mL (COMPLETED) 0303 (New Bag - Provider: Maxine May RN)0359 (Stopped - Provider: Maxine May, BRYAN)0415 (New Bag - Provider: Maxine May, BRYAN)0515 (Stopped - Provider: Maxine May, BRYAN) 1 g, Intravenous, EVERY HOUR, 2 doses, F irst dose on Sun07/10/18 at 0315, Last dose on Sun07/10/18 at 0400, Administer over 60 Minutes sodium chloride 0.9 % flush 5 mL 2000 (Given - Provider: Tolu May RN) 0816 (Given - Provider: Cindi Lopez, BRYAN)0956 (MAR Hold - Provider: Admin Adt - Reason: Transfer to a Procedural area)1348 ([facility] Unhold - Provider: Admin Adt)2026 (Given - Provider: Ryann Corbett, BRYAN) 0900 [...] (CANCELED) 1330 (New Bag - Provider: Juancarlos Watkins RN) 1,000 mL, at 100 mL/hr, Intravenous, CON TINUOUS, Starting Sun07/10/18 at 1200, Until Sun07/10/18 at 1348, PACU Recovery sodium chloride 0.9% infusion (CANCELED) 2000 (New Bag - Provider: Maxine May RN) 0956 ([facility] Hold - Provider: Admin Adt - R carol: Transfer to a Procedural area)1225 ([facility] Unhold - Provider: Cristina Recinos, BRYAN) 1,000 mL, at 100 mL/hr, Intravenous, CON TINUOUS, Starting Sun07/09/18 at 1945, Until Sun07/10/18 at 1539 PRN Medication Order 07/09/2018 07/10/2018 07/11/2018 acetaminophen (TYLENOL) tablet 650 mg 03 21 (Given - Provider: Juancarlos Núñez RN)0956 ([facility] Hold - Provider: Admin Adt - Reason: Transfer to a Procedural area)1225 ([facility] Unhold - Provider: Cristina Recinos, BRYAN)1236 (Given - Provider: Cristina Recinos, BRYAN) 650 mg, Oral, EVERY 6 HOURS PRN, Startin g Sun07/09/18 at 1915, Until Sun07/11/18 at 1958, Pain, Fever, Administer for temperature greater than or equal to 38.2 degrees celsius. Maximum daily dose of a 2352 (Given - Provider: Anne Munoz RN) cetaminophen from all sources not to exceed 4,000 mg., Routine dextrose 50% IV syringe 25-50 mL(Linked Group 2) 0956 ([facility] Hold - Provider: Admin Adt - Reason: Transfer to a Procedural area)1348 ([facility] Unhold - Provider: Admin Adt) 25-50 mL (12.5-25 g), Intravenous, EVERY 1 HOUR PRN, Starting Sun07/09/18 at 191, Until Arin 07/11/18 at 1957, Low blood [...] SolR 1 mg(Linked Grou p 2) 0956 ([facility] Hold - Provider: Admin Adt - Reason: Transfer to a Procedural area)1348 ([facility] Unhold - Provider: Admin Adt) 1 mg, Intramuscular, EVERY 1 HOUR PRN, S tarting Sun07/09/18 at 191, Until Arin 07/11/18 at 1957, Low blood [...] (GLUTOSE) 40% oral gel(Linked Group 2) 0956 (SEP Hold - Provider: Admin Adt - Reason: Transfer to a Procedural area)1348 ([facility] Unhold - Provider: Admin Adt) 15 g, Oral, PER INSULIN PROTOCOL, Starti ng Tue 07/09/18 at 1912, Until Sun07/11/18 at 1957, Low blood sugar, For BG [...] of mixture 10 ml) ONCE PRN, Starting 07/10/18 at 1043, Until Sun07/11/18 at 195, Intra- Operative (Intra-Procedure), Routine lidocaine (XYLOCAINE) 10 mg/mL (1 %) injection 3 mg 0956 (SEP Hold - Provider: Admin Adt - Reason: Transfer to a Procedural area)1348 (SEP Unhold - Provider: Admin Adt) 3 mg (0.3 mL), Subcutaneous, ONCE PRN, 1 dose, Starting Sun07/09/18 at 191, Until Sun07/11/18 at 1957, for discomfort with PIV insertion, Routine sodium chloride 0.9 % flush 5-20 mL 0956 (SEP Hold - Provider: Admin Adt - Reason: Transfer to a Procedural area)1348 (SEP Unhold - Provider: Admin Adt) 5-20 mL, Intravenous, EVERY 1 MIN PRN, S tarting Sun07/09/18 at 191, Until Sun07/11/18 at 1957, flush, Flush pertains [...] First dose on Sun07/10/18 at 0730, Until Discontinued
CORRECTION BOLUS Moderate [...] at 1957, Low blood sugar
For BG 50-70 mg/dL: [...] Intramuscular, EVERY 1 HOUR PRN, S tarting 07/09/18 at 1912, Until Arin 07/11/18 at 1958, Low blood sugar
For BG 50-70: 120 [...]
Routine documented in this encounter Care Teams Vice President [employer] Sales Relationship Specialty Start Date End Date Albert Zuleta MD PCP - General Family Medicine 01/17/17 10/26/21 [place] [id number] documented as of this encounter
--- OUTSIDE RECORDS SUMMARY | 2022-02-08 02:00 | XMS_ITS | Encounter Summary ---
:1960 Author Organization [facility] [place] [address] Care Team Providers Name Role Phone Albert Zuleta MD Primary Care Provider Reason for Visit Auth/Cert Specialty Diagnoses / Procedures Referred By Contact Refer red To Contact Diagnoses Nephrolithiasis UROSEPSIS Referral ID Status Reason Start Date Expiration Date Visits Requ ested Visits Authorized [id number] 1 1 Encounter Details Date Type Department Care Team Description 07/10/2018 Anesthesia Event Main Operating Room Monisha Martinez MD [facility] [place] [address] [facility] Gareth Dobbs MD [facility] [place] [address] [place] [address] Anesthesia Record Procedure Summary Procedure Name Responsible Anesthesia Start Anesthesia Stop Time Anesthesiologist Time CYSTO, STENT Monisha Curry MD 07/10/18 0957 07/10/18 11 03 PLACEMENT (WRVU 2.82) (Right Ureter) Events Date Time Event Comment 07/10/2018 0836 0957 AN Verify 0957 Start 0957 An Start Data 1006 An Induction 1008 An Intubation 1012 Anesthesia Ready 1054 Extubation/LMA Out 1102 an stop data 1102 Recovery or ICU Handoff Patient care was transferred to the destination unit staff after review of the patient's medica l history, current anesthetic/surgi beverley status and plan, according to the Provider Handoff Checklist. 1103 Stop Name Total fentaNYL 50 mcg IV Lidocaine 100 mg Propofol 200 mg Rocuronium 50 mg PHENYLephrine 160 mcg Neostigmine 4 mg Glycopyrrolate 0.8 mg Ciprofloxacin 400 mg Dexmedetomidine 8 mcg Sugammadex 200 mg Lactated Ringers 0 mL Agents Name O2 Air N2O Sevoflurane (et) Blood No blood administrations on file. Lines, Drains, and Airways Type Details Placement Removal PIV 07/09/18; 1816; median 07/09/18 1816 by Rice, 1506 by cubital vein (antecubital BRYAN Masters, Marita Bhatt RN fossa), left; 20 gauge; OSH; site symptomatic, removed per policy/procedure, site care per policy/procedure, catheter/device intact; 07/10/18; 1506 Incision 07/10/18; other (see 07/10/18 0000 by Ansary, 0000 by comments) (Rt ureteral/cysto Kassy, RN Rodrigue tte, Avani Ray RNotologist); LDA not present upon assessment; 03/07/19 ETT Mask Ventilation: Easy (1); 07/10/18 1013 by Salomón mcnally, 07/10/18 1054 by ETT Type: Cuffed, Oral; ETT RAPHAEL Reese Adam M, CRNA Size: 7 mm; Mac Blade: 3; Notes: Asleep, Pre-O2, Stylette; Attempts: 1; Laryngoscopy Grade: 1; ETT Placement Verified By: Capnometry, Auscultation, Visual; Secured at Teeth: 22 cm; Inserted by: RAPHAEL Ndiaye documented in this encounter Social History Tobacco [...] encounter OR Notes Anesthesia Postprocedure Evaluation - Monisha Curry MD - 07/10/2018 11:47 AM EST [facility] Department of Anesthesiology Post-procedure Note Patient: Blossom Samayoa Procedure Summary Date: 07/10/18 Room / Location: [address] MAIN OR Anesthesia Start: 956 Anesthesia Stop: 1102 Procedures: CYSTO, STENT PLACEMENT (WRVU 2.82) (Right Ureter) CYSTO, RETROGRADE, URETEROPYELOGRAPHY (WRVU 2.37) (Right Ureter) Diagnosis: Ureteral stone (Rt ureteral stone) Surgeon: Viky Sears MD Responsible Provider: Monisha Curry MD Anesthesia Type: general ASA Status: 3 All Anesthesia Providers: Anesthesiologist: Monisha Curry MD RESOURCE ECONOMIST: Paul Ndiaye CRNA Most Recent Vitals: 07/10/18 1130 BP: 113/58 Pulse: 91 Resp: 16 Temp: SpO2: 100% Pain Patient Location: PACU/[facility] Level of Consciousness: Awake and Alert Pain Management: Satisfactory Analgesia PONV: None Cardiovascular Status: At Baseline and Hemodynamically Stable Respiratory Status: At Baseline and Supplemental O2 (NC or FM) Postoperative Fluid Status: Intravascular EUvolemia Possible Anesthetic Complications: NONE apparent at time of evaluation Final Primary Anesthesia Type: General (The anesthetic type performed was the same as planned.) Comments: MONISHA CURRY MD Anesthesia Preprocedure Evaluation - Monisha Curry MD - 07/10/2018 7:33 AM EST Images from the original note were not included. Pre-Anesthesia Evaluation for: Blossom Samayoa a 57 y.o. female. Procedure(s): CYSTO, STENT PLACEMENT (WRVU 2.82) Patient Active Problem List Diagnosis ??? Nephrolithiasis ??? CIS - Entered not Verified ??? CIS - Cardiomyopathy ??? CIS - Chest pain ??? CIS - Depression ??? CIS - Diabetes Mellitus ??? CIS - Herpes simplex ??? CIS - LBBB ??? CIS - Nephrolithiasis ??? CIS - Obesity ??? CIS - OCD ??? CIS - Osteoma, R ear canal ??? CIS - Sarcoidosis No past medical history on file. No past surgical history on file. Social History Tobacco Use ??? Smoking status: Former Smoker Types: Cigarettes Last attempt to quit: 07/23/2016 Years since quittin.9 ??? Smokeless tobacco: Never Used Substance Use Topics ??? Alcohol use: No Frequency: Never Comment: 3 X a year Social History Substance and Sexual Activity Drug Use Yes ??? Types: Marijuana Comment: rarely used, once every few months Allergies Allergen Reactions ??? Augmentin [Amoxicillin-Pot Clavulanate] Hives and Itching ??? Cis Free Text Allergy Ketamine. CIS - hallucinations ??? Erythromycin Hives and Itching ??? Macrobid [Nitrofurantoin Monohyd/M-Cryst] Causes depression ??? Sulfa (Sulfonamide Antibiotics) Hives Medications: MAR and/or home medications have been reviewed. Physical Exam: Most Recent Vitals: 07/10/18 0600 BP: 143/84 Pulse: 80 Resp: 16 Temp: SpO2: 96% Body mass index is 50.74 kg/m??. Height: 167.6 cm (5' 6) Weight: (!) 142.6 kg (314 lb 6 oz) Airway Assessment: Mallampati: II TM distance: >3 FB Neck ROM: full Cardiovascular Assessment: Rhythm: regular Rate: normal cardiovascular exam normal Pulmonary Assessment: breath sounds clear to auscultation pulmonary exam normal Dental Assessment: Misc Assessment: Patient is wearing No contact(s). IV access: Peripheral line Anesthesia Plan: ASA 3 general, with a(n) intravenous induction 57 y.o. with history of obesity, DM2, HTN , LBBB (no known hx of [place]), remote history of pulmonary sarcoid, and recurrent nephrolithiasis presents with symptoms of obstructive stone being evaluated for cysto with stent placement. Anesthetic hx: no records, but has tolerated GA for hysterectomy and cholecystectomy in the past other than dysphoria with ketamine Airway hx: no records Cardio: NSR LBBB on 07/09 EKG, no echo on file Lab Results Component Value Date HGB 12.4 07/10/2018 PLATELET 216 07/10/2018 INR 1.2 07/09/2018 NA 136 07/10/2018 K 4.0 07/10/2018 CREATININE 0.77 07/10/2018 No results for input(s): ABORH in the last 7068 hours. Allergies: -- Augmentin (Amoxicillin-Pot Clavulanate) -- Hives and Itching -- Cis Free Text Allergy -- Ketamine. CIS - hallucinations -- Erythromycin -- Hives and Itching -- Macrobid (Nitrofurantoin Monohyd/M-Cryst) -- Causes depression -- Sulfa (Sulfonamide Antibiotics) -- Hives NPO Status: Appropriate Anesthetic Plan: GA with LMA Proceed with L sided 20 gauge for access Region - Other Informed Consent: Anesthetic plan and risks discussed with patient. Use of blood products discussed with patient who consented to blood products. PAT Staff Note documented in this encounter Miscellaneous Notes Addendum Note - Paul Ndiaye CRNA - 07/10/2018 2:10 PM EST Addendum created 07/10/18 1410 by Paul Ndiaye CRNA Intraprocedure Meds edited Addendum Note - Paul Ndiaye CRNA - 07/10/2018 12:42 PM EST Addendum created 07/10/18 1242 by Paul Ndiaye CRNA Intraprocedure Meds edited documented in this encounter Plan of Treatment Upcoming Encounters Date Type Specialty Care Team Description 03/15/2022 Office Visit Neurology Ryann Barfield APRN [facility] [address] [place] [address] 03/23/2022 Appointment Radiology Hailey Mcclendon MD [facility] [address] [place] [address] 03/23/2022 Laboratory Appointment Lab 03/23/2022 Office Visit Gastroenterology Hailey Mcclendon MD [facility] [place] [address] 05/23/2022 Procedure visit Maxillofacial Surgery Corby Montes MD [facility] [place] [address] documented as of this encounter Visit Diagnoses Not on filedocumented in this encounter Administered Medications Inactive Administered Medications - up to 3 most recent administrations Medication Order MAR Action Action Date Dose Rate Site ciprofloxacin (CIPRO) 400mg in Given 07/10/2018 10:21 AM EST 400 mg dextrose 5% 200mL PRN, Starting on Sun07/10/18 at 1021, Until Sun07/10/18 at 1102, Administer over 60 Minutes, Anesthesia Intra-op dexmedetomidine (PRECEDEX) injection Given 07/10/2018 10:54 AM EST 8 mcg PRN, Starting on Sun07/10/18 at 1054, Until Sun07/10/18 at 1241, Anesthesia Intra-op, Routine fentaNYL 50 mcg/mL multi-dose injection Given 07/10/2018 10:06 AM EST 50 mcg PRN, Starting on Sun07/10/18 at 1006, Until Sun07/10/18 at 1102, Anesthesia Intra-op, Routine glycopyrrolate (ROBINUL) multi-dose Given 07/10/2018 11:40 AM ES T 0.8 mg injection PRN, Starting on Sun07/10/18 at 1140, Until Sun07/10/18 at 1409, Anesthesia Intra-op, Routine lactated Ringers infusion New Bag 07/10/2018 9:57 AM EST CONTINUOUS PRN, Starting on Sun07/10/18 at 0957, Until Sun07/10/18 at 1102, Anesthesia Intra-op lidocaine (PF) (XYLOCAINE) 100 mg/5 mL (2 %) Given 10:06 AM EST 100 mg injection PRN, Starting on Sun07/10/18 at 1006, Until Sun07/10/18 at 1102, Anesthesia Intra-op, Routine neostigmine (BLOXIVERZ) injection Given 07/10/2018 11:40 AM EST 4 mg PRN, Starting on Sun07/10/18 at 1140, Until Sun07/10/18 at 1409, Anesthesia Intra-op, Routine PHENYLephrine in NS (PF) (JOCELYN-SYNEPHRINE) Given 07/10/2018 10:11 AM EST 80 mcg 0.8 mg/10 mL (80 mcg/mL) multi-dose injection Syrg PRN, Starting on Sun07/10/18 at 1008, Until Sun07/10/18 at 1102, Anesthesia Intra-op, Routine Given 07/10/2018 10:08 AM EST 80 mcg propofol (DIPRIVAN) 10 mg/mL bolus injection Given 10:06 AM EST 200 mg (Anesthesia) PRN, Starting on Sun07/10/18 at 1006, Until Sun07/10/18 at 1102, Anesthesia Intra-op rocuronium (ZEMURON) multi-dose injectio n Given 07/10/2018 10:06 AM EST 50 mg PRN, Starting on Sun07/10/18 at 1006, Until Sun07/10/18 at 1102, Anesthesia Intra-op, Routine sugammadex (BRIDION) 100 mg/mL injection Given 07/10/2018 11:07 AM EST 200 mg PRN, Starting on Sun07/10/18 at 1107, Until Sun07/10/18 at 1241, Anesthesia Intra-op, Routine documented in this encounter Care Teams Investment Strategist Relationship Specialty Start Date End Date Albert Zuleta MD PCP - General Family Medicine 01/17/17 10/26/21 [address] [place] [address] documented as of this encounter
--- OUTSIDE RECORDS SUMMARY | 2022-02-08 02:00 | XMS_ITS | Encounter Summary ---
:1960 Author Organization [facility] [place] [address] Care Team Providers Name Role Phone Albert Zuleta MD Primary Care Provider Encounter Details Date Type Department Care Team Description 07/09/2018 Orders Only Urology at [facility] Viky Sears Ureteral stone [facility] MD Emma (Primary Dx) [place] [address] UROLOGY DEPT. [phone] [place], [place] [address] (Wo rk) Social History Tobacco [...] Bar[place], [facility] [address] [place], [place] [address] 03/23/2022 Appointment Radiology Hailey Mcclendon MD [facility] [place] [address] 03/23/2022 Laboratory Appointment Lab 03/23/2022 Office Visit Gastroenterology Hailey Mcclendon MD [facility] [place] [address] 05/23/2022 Procedure visit Maxillofacial Surgery Corby Montes MD [facility] [place] [address] documented as of this encounter Procedures Procedure Name Priority Date/Time Associated Diagnosis Comme nts CYSTO, STENT PLACEMENT Routine 07/09/2018 6:10 PM EST Ureteral stone documented in this encounter Visit Diagnoses Diagnosis Ureteral stone - Primary Calculus of ureter documented in this encounter Care Teams Document Reviewer Relationship Specialty Start Date End Date Albert Zuleta MD PCP - General Family Medicine 01/17/17 10/26/[address] [place] [address] documented as of this encounter
--- OUTSIDE RECORDS SUMMARY | 2022-02-08 02:05 | XMS_ITS | Encounter Summary ---
:1960 Author Organization [facility] Address [address] [place] [address] Care Team Providers Name Role Phone Unavailable Primary Care Provider Unavailable Encounter Details Date Type Department Care Team Description 01/27/2005 Results Only [facility] - Kevin Daley DPM [employer] [address] [place] [phone] (Wo rk) Social History Tobacco Use Types Packs/Day Years Used Date Never Assessed Sex Assigned at Date Recorded Not on file documented as of this encounter Plan of Treatment Not on filedocumented as of this encounter Procedures Procedure Name Priority Date/Time Associated Diagnosis Comme [facility] SURGICAL PATHOLOGY Routine 01/27/2005 0:00 EDT Re sults for this procedure are i n the results section. documented in this encounter Results SURGICAL PATHOLOGY (01/27/2005 0:00 EDT) Pathology Report: SURGICAL PATHOLOGY REPORT [facility] Reports generated via electronic interface contain alta ginal data; LAB however they are lacking the format of the original re port. Caution should be taken when reading/interpreting unfo rmatted reports. Name: ? CHRIS PACHECO ? Accession #: ? [id number] ? : ? 1960 (Age: 44) ??F ? Collect Date: ? 01/27/2005 ? Location: ? [facility] ? Receive Date: ? 005 ? Provider: KEVIN DALEY DPM Copy to: YAZAN TRIMBLE MD ? Final Pathologic Diagnosis: ? Soft tissue foot, right, excision: - Fibrovascular tissue with features consistent with g anglion cyst. ??See comment. Comment: ? This case was reviewe d at the intradepartmental consultation conference. (Dr. Braxton)/[facility] Document reviewed and electronically signed by: SERGE BRAXTON MD Report ??Date: 02/02/2005 15:08 By the signature above, the attending physician certif ies that he/she has personally conducted a gross and/or microscopic examin ation of the described specimens and rendered or confirmed the above diagnosi s. Specimen(s) Received: ? Mass R foot Clinical History: ? R/O ganglion cyst versus fibroma with nerve ent rapment right foot Gross Description: ? Received in formalin labelled Gilbert and mass R foot is a 0.5 x 0.4 x 0.3 cm zapata-white and smooth cystic structure, which upon bisecting has a smooth inner lining with no appreci able material inside the cyst. Also received in the same container is a 0.7 x 0.4 x 0.2 cm zapata-white fragm ent of soft tissue entirely submitted in one cassette. (Dr. Ruffin-PHILIPPE)/[facility] End of Report Specimen Performing Organization Address City/State/ZIP Code Phon e Number [facility] [address] [place] [address] [facility] [address] [place] [address] documented in this encounter Visit Diagnoses Not on filedocumented in this encounter
--- OUTSIDE RECORDS SUMMARY | 2022-02-08 02:05 | XMS_ITS | Encounter Summary ---
:1960 Author Organization [facility] Address [address] [place] [address] Care Team Providers Name Role Phone Albert Jerez MD Primary Care Provider Reason for Visit Reason Onset Date Comments Discuss Possible Transfer 07/09/2018 Encounter Details Date Type Department Care Team Description 07/09/2018 Telephone [facility] Kunal Lieberman Discuss [facility] [place] [address] [place] [address] [address] (Wo rk) Social History Tobacco Use Types Packs/Day Years Used Date Never Assessed Sex Assigned at Date Recorded Not on file documented as of this encounter Miscellaneous Notes Telephone Encounter - Kunal Gilliam MD - 07/09/2018 1203 EST PPS Call Requesting Facility: [facility] Requesting Provider: Liv Piper Date: 07/09/18 Time of Call: 12:09 History: 57 yo woman with hx of T2DM, hx of nephrolithiasis and CHF who presented to [facility] with 30 hours of nausea and vomiting without BM for the last 2 days and no flatus. She endorses pain that she localizes to the low abdomen. Her abdominal exam does not elicit tenderness. She has no chest pain or shortnessof breath. CT scan with contrast obtained, which showed a large right sided ureteric stone with hydronephrosis and UA with +nitrites, +leukocyte esterase and >50 WBCs. It also showed incarcerated small bowel in a periumbilical hernia. Afebrile (36.6), HR 92, BP 141/83, O2 95% on room air Na 136, K 4.3, Cl 96, Bicarb 24.6, Cr 1.04 WBC 16.7, Hgb 12 Troponin 0.8 (upper limit of normal is 0.06) EKG shows LBBB but unchanged from prior She has received 1g of ceftriaxone and IV fluids. Plan: 1. Check lactate and troponin now. 2. They will push over CT abdo/pelvis images. 3. Will need to discuss this case with radiology, surgery, urology and possibly APC, whom I will contact after images are available. 4. She will likely need decompression of right ureter and then surgery for incarcerated hernia. Kunal Gilliam MD Internal Medicine Hospitalist Pager #[phone] Addendum: Lactate 2.5, repeat troponin 0.8, surgical team at [facility] was able to reduce hernia at the bedside. Still awaiting images to be transferred over. Patient has been accepted to [facility]. documented in this encounter Plan of Treatment Not on filedocumented as of this encounter Visit Diagnoses Not on filedocumented in this encounter Care Teams Swinging Cut Off Saw Operator Relationship Specialty Start Date End Date Albert Jerez MD PCP - General 06/14/15 documented as of this encounter
--- OUTSIDE RECORDS SUMMARY | 2022-02-08 02:05 | XMS_ITS | Encounter Summary ---
:1960 Author Organization [facility] Address [address] [place] [address] Care Team Providers Name Role Phone Albert Jerez MD Primary Care Provider Encounter Details Date Type Department Care Team Description 07/09/2018 Results Only Imaging [facility]- Unknown, [facility] ProviderMD [phone] Social History Tobacco Use Types Packs/Day Years Used Date Never Assessed Sex Assigned at Date Recorded Not on file documented as of this encounter Plan of Treatment Pending Results Name Type Priority Associated Diagnoses Date/Ti me OUTSIDE IMAGES - CT BODY Imaging 13:48 EST documented as of this encounter Visit Diagnoses Not on filedocumented in this encounter Care Teams Service Specialist Relationship Specialty Start Date End Date Albert Jerez MD PCP - General 06/14/15 documented as of this encounter
--- OUTSIDE RECORDS SUMMARY | 2022-02-08 02:05 | XMS_ITS ---
:1960 Author Care Team Providers Name Role Phone DR. YAZAN REES Primary Care Provider [phone] DR. YAZAN REES Referring Provider [phone] Allergies Code Code System Name Reaction Severity Status Onset 756 RxNorm Anafranil ? ? Active ? 599829 RxNorm Augmentin ? ? Active ? 408865 RxNorm Bactrim ? ? Active ? 6130 RxNorm Ketamine ? ? Active ? 469004 RxNorm Macrobid ? ? Active ? Medications [...] Date Name Performed by ? 03/20/2017 Dexa [facility] (Radiology) [address] [place] [address] (Work Place) 04/03/2017 NM, Parathyroid Scan [facility] (Radiology) [address] [place] [address] Dr [place] [id number] (Work Place) 05/01/2017 US, Thyroid [facility] (Radiology) [address] [place] [address] [address] [place] [id number] (Work Place) Results Lab Results Date Name Specimen Result Interpretation Description Value Range Status Address ? 10/25/2017 PTH (Parathyroid ? No observation ? ? ? [facility] Hormone), Intact, recorded. [facility] Serum or Plasma H ospital: [address] [place] [address], [place] 10/25/2017 Magnesium, Blood ? No observation ? ? ? [facility] recorded. [facility]: [address] [place] [address], [place] 10/25/2017 Phosphorus, Serum ? No observation ? ? ? [facility] or Plasma recorded. [facility]: [address] [place] [address], [place] 10/25/2017 BMP, Serum or ? No observation ? ? ? [facility] Plasma recorded. [facility]: [address] [place] [address], [place] 06/19/2017 PTH (Parathyroid ? No observation ? ? ? [facility] Hormone), Intact, recorded. [facility] Serum or Plasma H ospital: [address] [place] [address], [place] 06/19/2017 Vitamin D, ? No observation ? ? ? [facility] 25-Hydroxy + recorded. [facility] 1,25-Dihydroxy, H ospital: [address] [place] [address], [place] 06/19/2017 CMP, Serum or ? No observation ? ? ? [facility] Plasma recorded. [facility]: [address] [place] [address], [place] Past Encounters None recorded. Social History Tobacco [...]
== END 2022-02-08 01:46 | disposition home or self-care (01) ==
LOC: DS 01:45
PROVIDERS: PCP Family Medicine; Visit Provider Dietitian, Registered

== ENCOUNTER 2022-02-14 04:15 | Outpatient (CLI) | payer MEDICARE, SELFPAY ==
--- NOTE | 2022-02-14 14:00 | NS.NUTBLAN_ITS ---
Sakshi was referred for diabetes management education. 5'5 317 lbs, BMI: 50 Not very mobile due to pain. PMH: Dm2, Osteoarthritis in hips and knees, HTN, HLD, Morbid obesity Dm meds: Trulicity 1.5 mg q week, 30-60u aspart at meals, 35 units basalglar BID: Total Daily Dose: 140 units Most recent A1C: 11.1% 08/17/20 Diet Recall: Glucerna Shake for B and L, Meals on WHeels Dinner. Eats carbs at nights often to fall asleep Sakshi has poorly controlled blood sugars and suffers from chronic pain, disordered eating, sedentary life style and depression. She attends session today to try to reduce the amount of insulin she uses to help with weight loss and avoid hypoglycemia. She attends a Diabetes Support Group and want to manage her blood sugars better going forward. Session today focused on how to count carbs and dose meal time insulin. Current insulin regime very aggressive and has been causing hypoglycemia especially at night. Carb to Insulin Ratio: 1: 5 Correction Factor: 1:10 Reviewed how to calculate insulin dose for various meals and how to correct elevated blood sugars. Sakshi would benefit from a continuous glucose monitor with reader (Kenneth 2) for alerts when blood sugar excursions occur. Will follow up with PCP office. Will follow up in 2 weeks by phone.
== END 2022-02-14 04:16 | disposition home or self-care (01) ==
LOC: DS 04:15
PROVIDERS: PCP Family Medicine; Visit Provider Dietitian, Registered
DX: Z79.4 Long term (current) use of insulin; Z71.3 Dietary counseling and surveillance; E11.649 Type 2 diabetes mellitus with hypoglycemia without coma; I10 Essential (primary) hypertension; E66.01 Morbid (severe) obesity due to excess calories
CPT/HCPCS: 97802

== ENCOUNTER → 2022-04-03 01:39 | Outpatient (CLI) | payer MEDICARE, SELFPAY ==
--- NOTE | 2022-04-03 | DI.MRI_ITS ---
Exam(s) MR BRAIN WO/W EXAM: MR BRAIN WO/W CLINICAL HISTORY: PROGRESSIVE COGNITIVE DECLINE WITH IMPAIRED RECALL TECHNIQUE: Multiplanar multisequence MRI of the brain was performed. Both noninfused and contrast i nfused sequences were performed. IV Contrast injected was 20 cc Dotarem. COMPARISON: No exams were available for comparison FINDINGS: CEREBRAL PARENCHYMA: No evidence of intracranial hemorrhage, mass effect nor shift of midline structu re. No extraaxial fluid collections. Ventricles are not enlarged nor shifted. There is no significant focal signal abnormality in the cerebellar hemispheres nor within the kat, m idbrain, and thalami. There are few small nonspecific foci of signal abnormality in the periventricular white matter. The amount of involutional changes consistent with the patient's age. There are no ring enhancing lesions in the brain. There is no abnormal meningeal enhancement. PITUITARY GLAND: No mass nor parasellar abnormality. No obvious abnormality in the cavernous sinuses. FLOW VOIDS: The expected flow void are noted. No evidence of obvious aneurysm nor obvious vascular ma lformation. PARANASAL SINUSES: The visualized paranasal sinuses appear unremarkable. ORBITS: No obvious abnormal findings. IMPRESSION: 1. No specific intracranial findings on this MRI scan of the brain. There are few small nonspecific foci of periventricular signal abnormality. 2. No abnormal enhancing intracranial finding. DATA REPOSITORY:
[2022-04-03 14:14] LABS: CREATININE 1.1 mg/dL (0.55-1.02); Estimated GFR 56.81 (mL/min/1.73m2)
[2022-04-03] MEDS: Gadoterate meglumine 20 ML SYRINGE IVP (14:19)
[2022-04-03] MEDS: Normal Saline Flush 10 ML SYR IVP (14:20)
== END ==
PROVIDERS: PCP Family Medicine; Visit Provider Registered Nurse
DX: Z01.812 Encounter for preprocedural laboratory examination (principal); R90.82 White matter disease, unspecified; G31.84 Mild cognitive impairment of uncertain or unknown etiology; G47.00 Insomnia, unspecified
CPT/HCPCS: 70553; 82565

== ENCOUNTER 2022-06-01 18:38 | Outpatient (REF) | payer MEDICARE, SELFPAY ==
[2022-06-01 21:57] LABS: Bacteria Rare HPF (Negative); C & S Indicated? C&S Done As Ordered; Crystals Few Calcium Oxalate HPF (Negative); Epithelial Cells Few HPF (Negative); Mucus Negative (Negative); Other Cells Few Yeast (Negative); WBC >50 HPF (0-5)
== END 2022-06-01 18:39 | disposition home or self-care (01) ==
LOC: LBN 18:38
PROVIDERS: PCP Family Medicine; Visit Provider Physician Assistant Medical
DX: N39.0 Urinary tract infection, site not specified (principal)
CPT/HCPCS: 87077; 81015; 87086; 87186; 87480; 87510; 87660

== ENCOUNTER → 2022-06-05 13:00 | Outpatient (BNVA) | payer MEDICARE, SELFPAY | PROVIDERS: PCP Family Medicine; Referring Provider Family Medicine; Visit Provider Student in an Organized Health Care Education/Training Program | DX: M17.11 Unilateral primary osteoarthritis, right knee (principal); M17.12 Unilateral primary osteoarthritis, left knee | CPT/HCPCS: 20610; J7325 ==

== ENCOUNTER 2022-07-04 16:01 | Outpatient (REF) | payer MEDICARE, SELFPAY | END 2022-07-04 16:02 | disposition home or self-care (01) | LOC: LBN 16:01 | PROVIDERS: PCP Family Medicine; Visit Provider Physician Assistant | DX: R31.9 Hematuria, unspecified (principal) | CPT/HCPCS: 87086 ==

== ENCOUNTER 2022-07-10 11:22 | Emergency (ER) | payer MEDICARE, SELFPAY ==
[2022-07-10 11:25] VITALS: BP 112/86; PULSE 62; RESP 20; TEMP 36.3; O2SAT 99
[2022-07-10 11:49] LABS: Bilirubin Negative (Negative); Blood Large (Negative); Clarity Sl Cloudy (Clear); Glucose Negative (Negative); Ketones Negative (Negative); Leukocyte Esterase Large (Negative); Nitrite Negative (Negative); Urobilinogen 0.2 EU/dL (Up TO 0.2)
[2022-07-10 11:55] LABS: Bacteria Few HPF (Negative); C & S Indicated? Yes; Casts 0-2 Hyaline LPF (Negative); Crystals Negative HPF (Negative); Epithelial Cells Few HPF (Negative); Mucus Trace (Negative); RBC 20-50 HPF (0-2); WBC >50 HPF (0-5)
[2022-07-10 12:32] VITALS: BP 135/54; PULSE 69; RESP 18; TEMP 36.2; O2SAT 97
--- NOTE | 2022-07-10 12:34 | W.ED.GENAD ---
Discharge Plan Disposition Patient Disposition: Home Condition: Improving Discharge Details Clinical Impression: Hydronephrosis, Hematuria, Recurrent UTI Primary Care Provider: Trev Burr ED Provider: Quan Rosenthal Home Meds and New Rx's Prescriptions: Continued multivitamin Tablet 1 tab PO DAILY insulin glargine [Basaglar KwikPen U-100 Insulin] 100 unit/mL (3 mL) insulin pen 24 unit subcut QAM acetaminophen [Tylenol Extra Strength] 500 mg tablet 500 mg PO Q6H PRN ibuprofen 200 mg tablet 200 mg PO QID PRN acyclovir 5 % cream 1 applic TP ONCE PRN diclofenac sodium [Voltaren] 1 % gel 2 gm TP QID PRN levalbuterol tartrate 45 mcg/actuation HFA aerosol inhaler 2 inh IH Q6H amitriptyline 50 mg tablet 50 mg PO DAILY Ozempic 0.25 mg or 0.5 mg(2 mg/1.5 mL) pen injector 0.5 mg subcut QWEEK nitroglycerin 0.4 MG tablet, sublingual 0.4 mg Sublingual PRN Label Comments: 05/04/14: Pt carries NTG but has never had to use it. PG insulin aspart U-100 [Novolog Flexpen U-100 Insulin] 100 unit/mL (3 mL) insulin pen 15 unit subcut TID Lactobacillus acidophilus Tablet,Chewable 1 tab PO DAILY gabapentin 600 mg tablet 600 mg PO QID valacyclovir 1 gram tablet 1,000 mg PO DAILY hydrocodone-acetaminophen 7.5-325 mg tablet 1 tab PO Q6H PRN clotrimazole-betamethasone 1-0.05 % cream 1 applic topical BID 10 Days Qty: 15 2RF albuterol sulfate [ProAir HFA] 8.5 GM HFA aerosol inhaler 2 puff Inhalation QID PRN (Reason: Shortness Of Breath) loratadine 10 mg Tablet 10 mg PO DAILY lisinopril 5 mg Tablet 5 mg PO DAILY carvedilol 3.125 mg tablet 12.5 mg PO BID Discharge Instructions Instructions: Urinary Tract Infection in Women (ED), Hematuria (ED), Hydronephrosis (ED) Additional Instructions: Keflex as directed. Plenty of fluids to avoid dehydration. Please watch for new or worsening symptoms and return to the ER for any concerns. I have placed you on our care management list to help expedite your outpatient neurology appointment at [facility] to be sooner than already scheduled in early July. Discharge Data Discharge Date/Time-TO BE ENTERED AT DEPARTURE: 07/10/22 19:07 Medical Decision Making <JETT De La Cruz - Last Filed: 07/30/22 08:53> Patient is a pleasant 61 year old female presenting today with c/c of flank pain, RLQ pain,, and hematuria. She reports that this is her ninth urinary tract infection this year. Is prone to having kidney stones. States that she has had some low-grade fevers and chills. Denies any nausea. No change in bowel habits. States that she has also had a vaginal yeast infection. Has been treated twice now for urinary tract infection recently as well as 2 separate treatments for yeast infection and neither of these are clearing based on patient's symptoms. She also has been having increased urinary frequency. Has had some weight loss. On exam, patient appears nontoxic. She is noted to be obese. She does have a large pannus but her skin is well intact with no evidence of fungal infections. She has some right lower back pain. Right lower quadrant pain. No peritoneal findings. Patient I did discuss vaginal exam and secondary to previous traumas would prefer to hold off on this. Rather, will speak with [facility]ITATIVE [employer]SULTANT. She states that she does not typically have vaginal dryness which may be associated with her chronic urinary tract infection as well as her yeast infections. I will refer her to women's wellness in hopes that she is able to have an expeditious evaluation. However, with the patient's hematuria, particularly as she has been seeing clots in the urine, general malaise, I am worried that there may be a more significant infection or alternative diagnosis leading to her current presentation. Plan for laboratory evaluation as well as CT scan. Contacted by the lab, concern for a lactate of 2.4. No leukocytosis. Stable H&H. CMP significant for creatinine of 1.2. Urine concerning for large amount of blood, large leukocyte esterase, WBC, few bacteria. Will treat with IV Rocephin. She is receiving IV hydration. At the end of shift care transition to Marquis Rosenthal PA-C, patient is receiving her IV fluids and antibiotics. CT pending. 1530 Quan Ariadna PA-C I assumed care of this 61-year-old female from my colleague JETT Piper, please see her initial HPI and examination. Patient receiving 1 L IV fluid currently, will provide another liter of IV fluid, recheck lactate and CMP. Patient is currently receiving IV Rocephin. Pending CT imaging. Mild to moderate right hydronephrosis without visible obstructing stone, findings could be secondary to a recently passed stone. Discussed findings with patient. She states that she actually felt as though she passed a kidney stone in the past 24 hours. She feels well and is comfortable with discharge. Patient appears well, nontoxic appearing. Awaiting CMP and repeat lactate. I will place her on the care management list to help expedite outpatient urology follow-up. Patient is typically seen at [facility] and has a scheduled appointment early July. Patient will require prescription for antibiotics. She does have multiple antibiotic allergies. Lastly, she remains well-appearing, hemodynamically stable. Lactate and creatinine both improving. Patient reports multiple allergies to antibiotics. When reviewing previous culture sensitivities, often contamination, multiple rasta. Patient is adamant that she cannot take Macrobid as it will cause severe depression within hours of taking the medication. She reports that Keflex typically works well. Standard discharge and return precautions were provided. Patient understands, is agreeable to this plan, and has no additional questions or concerns upon discharge. This documentation was generated using [employer] dictation system, please disregard any oddities of phrase or misspellings. <JETT Garcia - Last Filed: 07/10/22 18:50> Patient is a pleasant 61 year old female presenting today with c/c of flank pain, RLQ pain,, and hematuria. She reports that this is her ninth urinary tract infection this year. Is prone to having kidney stones. States that she has had some low-grade fevers and chills. Denies any nausea. No change in bowel habits. States that she has also had a vaginal yeast infection. Has been treated twice now for urinary tract infection recently as well as 2 separate treatments for yeast infection and neither of these are clearing based on patient's symptoms. She also has been having increased urinary frequency. Has had some weight loss. On exam, patient is notably obese. She does have a large pannus but her skin is well intact with no evidence of fungal infections. She has some right lower back pain. Right lower quadrant pain. No peritoneal findings. Patient I did discuss vaginal exam and secondary to previous traumas would prefer to hold off on this. Rather, will speak with QUANTITATIVE CONSULTANT. She states that she does not typically have vaginal dryness which may be associated with her chronic urinary tract infection as well as her yeast infections. I will refer her to women's wellness in hopes that she is able to have an expeditious evaluation. However, with the patient's hematuria, particularly as she has been seeing clots in the urine, general malaise, I am worried that there may be a more significant infection or alternative diagnosis leading to her current presentation. Plan for laboratory evaluation as well as CT scan. Contacted by the lab, concern for a lactate of 2.4. No leukocytosis. Stable H&H. CMP significant for creatinine of 1.2. Urine concerning for large amount of blood, large leukocyte esterase, WBC, few bacteria. Will treat with IV Rocephin. She is receiving IV hydration. At the end of shift care transition to Marquis Rosenthal PA-C, patient is receiving her IV fluids and antibiotics. CT pending. 1530 Quan Rosenthal PA-C I assumed care of this 61-year-old female from my colleague JETT Piper, please see her initial HPI and examination. Patient receiving 1 L IV fluid currently, will provide another liter of IV fluid, recheck lactate and CMP. Patient is currently receiving IV Rocephin. Pending CT imaging. Mild to moderate right hydronephrosis without visible obstructing stone, findings could be secondary to a recently passed stone. Discussed findings with patient. She states that she actually felt as though she passed a kidney stone in the past 24 hours. She feels well and is comfortable with discharge. Patient appears well, nontoxic appearing. Awaiting CMP and repeat lactate. I will place her on the care management list to help expedite outpatient urology follow-up. Patient is typically seen at [facility] and has a scheduled appointment early July. Patient will require prescription for antibiotics. She does have multiple antibiotic allergies. Lastly, she remains well-appearing, hemodynamically stable. Lactate and creatinine both improving. Patient reports multiple allergies to antibiotics. When reviewing previous culture sensitivities, often contamination, multiple rasta. Patient is adamant that she cannot take Macrobid as it will cause severe depression within hours of taking the medication. She reports that Keflex typically works well. Standard discharge and return precautions were provided. Patient understands, is agreeable to this plan, and has no additional questions or concerns upon discharge. This documentation was generated using [employer] system, please disregard any oddities of phrase or misspellings. Medical Records Medical records reviewed: Yes I reviewed the patient's medical records. Imaging Data Radiologic Study: Attestation: I personally reviewed and interpreted this imaging study as follows: Imaging: CT Scan Radiologist's impression: Exam(s) CT ABDOMEN PELVIS W EXAM: CT ABDOMEN PELVIS W CLINICAL HISTORY: right flank pain, RLQ pain. TECHNIQUE: Imaging Protocol: Axial computed tomography images with coronal and sagittal reformatted images were created and reviewed CONTRAST MATERIAL: Intravenous: Omnipaque 350 Contrast volume:100 ml Oral: no COMPARISON: CT CT ABDOMEN PELVIS WO/W from 10/18/2020 CT,NM,TMT NM MPI REST STRESS GRP from 11/07/2021 FINDINGS: ABDOMEN: Lung Bases: Normal where visualized. Liver: Enlarged. Fatty infiltration. Mildly nodular contour. No measurable mass. Gallbladder and biliary tract: Status post cholecystectomy. No radiodense calculus or dilation. Pancreas: Normal density, no abnormal calcifications or inflammatory process. Spleen: Mildly enlarged at 15 cm. Kidneys: Normal size, contour and axis. [id number] right hydronephrosis no ureteral stone or bladder stone visible. Multiple additional bilateral nonobstructing stones. No left hydronephrosis. No masses seen. Adrenal glands: No masses seen. Abdominal Aorta: Abdominal portion non-dilated. Moderate severe atherosclerotic changes. Soft tissues: Stable appearance of lower anterior abdominal wall hernia extending inferiorly into pannus, containing cecum and appendix and distal ileum. PELVIS: Bladder: Empty, not well evaluated.. No calculi.No focal mass. Bowel: Moderate to increased quantity of stool. No obstruction or bowel wall thickening. Appendix normal. Peritoneal cavity: No ascites, collection or mesenteric inflammatory response. Bones: Degenerative changes. Reproductive organs: Status post hysterectomy. Lymph nodes: Unremarkable. Impression: [id number] right hydronephrosis without visible obstructing stone. Findings could be secondary to a recently passed stone. Findings called to Liv Piper of the emergency department Lab Data Lab results reviewed: Yes I reviewed the patient's lab results. Labs: 07/10/22 11:32 Urine - Reflex from Ua Urine Culture - Pending Laboratory Tests Range/Units 07/10/22 07/10/22 07/10/22 11:32 13:26 13:26 WBC (4.4-10.8) 10^3/uL RBC (3.93-5.22) 10^6/uL Hgb (11.2-15.7) g/dL Hct (36.0-46.0) % MCV (80-95) fL MCH (27.0-33.0) pg MCHC (32.0-36.0) % RDW (11.7-14.6) % Plt Count (130-400) 10^3/uL MPV (8.0-11.0) fL Immature Gran % Neutrophils % Lymphocytes % Monocytes % Eosinophils % Basophils % Nucleated RBC % (0.0-0.3) % Absolute Neutrophils (1.2-6.7) 10^3/uL Absolute Lymphocytes (1.2-3.4) 10^3/uL Absolute Monocytes (0.1-0.8) 10^3/uL Absolute Eosinophils (0.0-0.7) 10^3/uL Absolute Basophils (0.0-0.2) 10^3/uL VBG Lactate (0.6-1.4) mmol/L 2.4 H* Sodium (136-145) mmol/L 138 Potassium (3.5-5.1) mmol/L 4.3 Chloride (98-107) mmol/L 103 Carbon Dioxide (21.0-32.0) mmol/L 22.1 Anion Gap (3-11) mmol/L 12.9 H BUN (7-18) mg/dL 24 H Creatinine (0.55-1.02) mg/dL 1.2 H Est GFR (CKD-EPI 2020) (mL/min/1.73m2) 51.18 Glucose (74-106) mg/dL 159 H Calcium (8.5-10.1) mg/dL 9.8 Total Bilirubin (0.2-1.0) mg/dL 1.1 H AST (15-37) U/L 33 ALT (14-59) U/L 35 Alkaline Phosphatase (46-116) U/L 113 Total Protein (6.4-8.2) g/dL 8.8 H Albumin (3.4-5.0) g/dL 4.0 Urine Color (Yellow) Yellow Urine Clarity (Clear) Sl Cloudy Urine pH (5-8) 6.0 Ur Specific [place] (1.005-1.025) 1.010 Urine Protein (Negative) mg/dL 30 H Urine Ketones (Negative) mg/dL Negative Urine Blood (Negative) Large H Urine Nitrite (Negative) Negative Urine Bilirubin (Negative) Negative Urine Urobilinogen (Up TO 0.2) EU/dL 0.2 Ur Leukocyte Esterase (Negative) Large H Urine RBC (0-2) HPF 20-50 H Urine WBC (0-5) HPF >50 H Ur Epithelial Cells (Negative) HPF Few Urine Crystals (Negative) HPF Negative Urine Bacteria (Negative) HPF Few Urine Casts (Negative) LPF 0-2 Hyaline Urine Mucus (Negative) Trace Ur Culture Indicated? Yes Urine Glucose (Negative) mg/dL Negative Range/Units 07/10/22 07/10/22 07/10/22 13:26 18:20 18:20 WBC (4.4-10.8) 10^3/uL 10.66 RBC (3.93-5.22) 10^6/uL 3.65 L Hgb (11.2-15.7) g/dL 11.7 Hct (36.0-46.0) % 34.3 L MCV (80-95) fL 94 MCH (27.0-33.0) pg 32.1 MCHC (32.0-36.0) % 34.1 RDW (11.7-14.6) % 12.8 Plt Count (130-400) 10^3/uL 183 MPV (8.0-11.0) fL 10.0 Immature Gran % 0.3 Neutrophils % 61.1 Lymphocytes % 29.3 Monocytes % 7.7 Eosinophils % 1.4 Basophils % 0.2 Nucleated RBC % (0.0-0.3) % 0.0 Absolute Neutrophils (1.2-6.7) 10^3/uL 6.52 Absolute Lymphocytes (1.2-3.4) 10^3/uL 3.12 Absolute Monocytes (0.1-0.8) 10^3/uL 0.82 H Absolute Eosinophils (0.0-0.7) 10^3/uL 0.15 Absolute Basophils (0.0-0.2) 10^3/uL 0.02 VBG Lactate (0.6-1.4) mmol/L 2.0 H Sodium (136-145) mmol/L 139 Potassium (3.5-5.1) mmol/L 4.3 Chloride (98-107) mmol/L 106 Carbon Dioxide (21.0-32.0) mmol/L 21.9 Anion Gap (3-11) mmol/L 11.1 H BUN (7-18) mg/dL 21 H Creatinine (0.55-1.02) mg/dL 1.0 Est GFR (CKD-EPI 2020) (mL/min/1.73m2) 63.70 Glucose (74-106) mg/dL 119 H Calcium (8.5-10.1) mg/dL 8.8 Total Bilirubin (0.2-1.0) mg/dL AST (15-37) U/L ALT (14-59) U/L Alkaline Phosphatase (46-116) U/L Total Protein (6.4-8.2) g/dL Albumin (3.4-5.0) g/dL Urine Color (Yellow) Urine Clarity (Clear) Urine pH (5-8) Ur Specific [place] (1.005-1.025) Urine Protein (Negative) mg/dL Urine Ketones (Negative) mg/dL Urine Blood (Negative) Urine Nitrite (Negative) Urine Bilirubin (Negative) Urine Urobilinogen (Up TO 0.2) EU/dL Ur Leukocyte Esterase (Negative) Urine RBC (0-2) HPF Urine WBC (0-5) HPF Ur Epithelial Cells (Negative) HPF Urine Crystals (Negative) HPF Urine Bacteria (Negative) HPF Urine Casts (Negative) LPF Urine Mucus (Negative) Ur Culture Indicated? Urine Glucose (Negative) mg/dL HPI <JETT De La Cruz - Last Filed: 07/30/22 08:53> General Date/Time Provider Initiated Documentation: 07/10/22 12:06. Limitations to Documentation: no limitations. Information obtained by: patient, RN notes reviewed and old records reviewed. History of Present Illness 61 year old F presents to the emergency department with the chief complaint of recurrent UTI, flank pain, hematuria, described as moderate, Quality is described as burning and aching, and is localized to the back (flank). Patient abdomen (downward to pelvic area). Patient started experiencing this week(s) (urinary symptoms for quite some time, pain for past few days) and it has been constant. No relieving factors improve symptom(s), No exacerbating factors reported . Patient notes fever/chills, malaise and rash (vaginal yeast infection); denies chest pain, diaphoresis, loss of appetite ( weight loss) and shortness of breath. Patient did receive the following treatments prior to arrival, other (abx) Related Data Home Medications Medication Instructions Recorded Confirmed nitroglycerin 0.4 mg sublingual 0.4 mg sublingual PRN 11/07/12 07/10/22 tablet albuterol sulfate 90 mcg/actuation 2 puff inhalation QID PRN 02/03/13 07/10/22 aerosol inhaler (ProAir HFA) Shortness Of Breath loratadine 10 mg tablet 10 mg PO DAILY 07/09/18 07/10/22 lisinopril 5 mg tablet 5 mg PO DAILY 07/22/18 07/10/22 acetaminophen 500 mg tablet 500 mg PO Q6H PRN 12/19/18 07/10/22 (Tylenol Extra Strength) acyclovir 5 % topical cream 1 applic topical ONCE PRN 12/19/18 07/10/22 diclofenac sodium 1 % topical gel 2 gm topical QID PRN 12/19/18 06/05/22 (Voltaren) ibuprofen 200 mg tablet 200 mg PO QID PRN 12/19/18 07/10/22 levalbuterol tartrate 45 2 inh inhalation Q6H 12/19/18 06/05/22 mcg/actuation aerosol inhaler carvedilol 3.125 mg tablet 12.5 mg PO BID 04/16/20 07/10/22 Lactobacillus acidophilus 1 tab PO DAILY 10/13/20 07/10/22 gabapentin 600 mg tablet 600 mg PO QID 10/13/20 07/10/22 hydrocodone 7.5 mg-acetaminophen 1 tab PO Q6H PRN 10/13/20 07/10/22 325 mg tablet insulin aspart U-100 100 unit/mL 15 unit subcut TID 10/13/20 07/10/22 (3 mL) subcutaneous pen (Novolog Flexpen U-100 Insulin aspart) valacyclovir 1 gram tablet 1,000 mg PO DAILY 10/13/20 07/10/22 insulin glargine 100 unit/mL (3 24 unit subcut QAM 11/16/20 07/10/22 mL) subcutaneous pen (Basaglar KwikPen U-100 Insulin) multivitamin 1 tab PO DAILY 11/16/20 07/10/22 clotrimazole-betamethasone 1 1 applic topical BID 10 days #15 01/28/21 07/10/22 %-0.05 % topical cream grams amitriptyline 50 mg tablet 50 mg PO DAILY 12/02/21 07/10/22 semaglutide 0.25 mg or 0.5 mg (2 0.5 mg subcut QWEEK 06/05/22 07/10/22 mg/1.5 mL) subcutaneous pen injector (XM Radioempic) Previous Rx's Medication Instructions Recorded clotrimazole-betamethasone 1 1 applic topical BID 10 days #15 01/28/21 %-0.05 % topical cream grams Allergies Allergy/AdvReac Type Severity Reaction Status Date / Time erythromycin base Allergy Severe hives Verified 06/05/22 13:12 Sulfa (Sulfonamide Allergy Severe hives Verified 06/05/22 13:12 Antibiotics) sulfamethoxazole Allergy Verified 06/05/22 13:12 [From Bactrim] trimethoprim [From Bactrim] Allergy Verified 06/05/22 13:12 magnesium AdvReac Severe Diarrhea Verified 06/05/22 13:12 nitrofurantoin AdvReac Severe depression Verified 06/05/22 13:12 [From Macrobid] clomipramine [From Anafranil] AdvReac Intermediate Other (See Verified 06/05/22 13:12 Comment) ketamine AdvReac Intermediate hallucinati Verified 06/05/22 13:12 ons General Stated Complaint: Urinary GROVER: 4 Review of Systems <JETT De La Cruz - Last Filed: 07/30/22 08:53> Constitutional Constitutional: Reports as per HPI Cardiovascular Cardiovascular: Denies chest pain Respiratory Respiratory: Denies cough Gastrointestinal Gastrointestinal: Denies change in bowel habits, Denies nausea and Denies vomiting Genitourinary Genitourinary: Reports as per HPI Musculoskeletal Musculoskeletal: Reports as per HPI Integumentary/Breasts Skin/Breast: Reports as per HPI PFSH <JETT De La Cruz - Last Filed: 07/30/22 08:53> All Active Problems (Updated 07/10/22 @ 18:30 by JETT Garcia) Hydronephrosis (Acute) Diarrhea (Acute) UTI (urinary tract infection) (Acute) Gross hematuria (Acute) Tendinitis of left elbow (Acute) Breast pain, left (Acute) 09/2019. Physical exam unremarkable. No additional testing ordered. Right rotator cuff tendinitis (Acute) Steroid injection: 02/07/2021; 04/14/2019 Diabetes (Chronic) Hydronephrosis (Acute) Morbid obesity (Chronic) Leukocytosis (leucocytosis) (Acute) Renal insufficiency (Chronic) Lactic acid acidosis (Acute) Hyperglycemia (Chronic) Incarcerated incisional hernia (Acute) Primary osteoarthritis of both knees (Chronic 07/26/15) Synvisc injections for many years Most recent Synvisc injections: 06/05/2022; 12/02/2021 Cystocele (Acute 04/13/15) Flank pain (Acute) Recurrent UTI (Chronic) Hematuria (Acute) Medical History (Updated 07/10/22 @ 18:30 by JETT Garcia) Acute stress disorder Anemia Anxiety Cardiomyopathy Chronic leg pain Chronic pain Cirrhosis of liver Congenital ureterovesical obstruction Congestive heart failure Degenerative joint disease Depression Diabetes mellitus Diarrhea Essential hypertension Former smoker quit smoking 07/23/16 Herpes simplex Hyperparathyroidism Hypertension Hypomagnesemia Incisional hernia Kidney stone Neuropathy Obsessive compulsive disorder Obstructive nephropathy Osteoma Other chromoabnormalities of urine Plantar fasciitis PTSD (post-traumatic stress disorder) Sarcoidosis Sleep apnea Thyroid nodule Urinary incontinence Urinary incontinence, mixed Vaginal wall prolapse Vaginitis Surgical History Abdominal hysterectomy Cholecystectomy Fracture, Open Treatment Lithotripsy Oophrectomy, Both Open Carpal Tunnel release Tonsillectomy and adenoidectomy Family History Mother Diabetes Heart disease Father Personal history of malignant neoplasm Lung Cancer Sister Personal history of malignant neoplasm Thyroid Cancer Social History Smoking/Tobacco Use Status: Former Tobacco Use Smoking risk assessment performed?: Yes Alcohol Intake: never Drug use: Occasionally Substance use type: marijuana Do you feel safe at home: Yes Do you feel safe in your relationship?: Yes Exam <JETT De La Cruz - Last Filed: 07/30/22 08:53> Const General: cooperative, comfortable, no acute distress, well developed, well groomed and ill appearing Nutritional Appearance: well nourished and obese Orientation: alert and awake Resp Effort & Inspection: normal respiratory effort and no respiratory distress Auscultation: clear to auscultation bilaterally, no rales, no rhonchi and no wheezes Cardio Rate: regular rate Rhythm: regular rhythm Heart Sounds: S1 normal and S2 normal GI Inspection: normal to inspection, large pannus and obesity (skin is intact,no infection in folded areas) Palpation: soft, no hepatosplenomegaly, not firm, no guarding, not rigid and tender (RLQ) in the RLQ; not at McBurney's point, psoas sign negative and with no rebound tenderness Auscultation: normal bowel sounds Back/Spine/Pelvis Back: CVA tenderness (right) Skin General skin exam: no rashes or lesions noted Trauma: no lacerations or abrasions Neuro General: patient alert and patient awake Cognition: normal cognition Speech: speech normal Gait: normal gait Psych Appearance: grossly normal and well kempt Mental Status: mental status grossly normal Speech and Movement: speech and movement normal Course <Liv Feliz, PA - Last Filed: 07/30/22 08:53> Vital Signs Vital signs: Vital Signs Temperature 36.3 C L 07/10/22 11:25 Pulse 62 07/10/22 11:25 Respiratory Rate 20 07/10/22 11:25 Blood Pressure 112/86 07/10/22 11:25 Pulse Oximetry 99 07/10/22 11:25 Temperature 36.2 C L 07/10/22 12:32 Temperature Source Tympanic 07/10/22 12:32 Pulse 69 07/10/22 12:32 Respiratory Rate 18 07/10/22 12:32 Respiratory Effort Non-Labored 07/10/22 11:30 Blood Pressure 135/54 L 07/10/22 12:32 Blood Pressure Position Sitting 07/10/22 11:25 Pulse Oximetry 97 07/10/22 12:32 Oxygen Delivery Method Room Air 07/10/22 12:32 Oxygen Flow Rate 0 07/10/22 12:32 Lab/Test Results Lab/Test Results: 07/10/22 11:32 Urine - Reflex from Ua Urine Culture - Pending Laboratory Tests Range/Units 07/10/22 11:32 Urine Color (Yellow) Yellow Urine Clarity (Clear) Sl Cloudy Urine pH (5-8) 6.0 Ur Specific [place] (1.005-1.025) 1.010 Urine Protein (Negative) mg/dL 30 H Urine Ketones (Negative) mg/dL Negative Urine Blood (Negative) Large H Urine Nitrite (Negative) Negative Urine Bilirubin (Negative) Negative Urine Urobilinogen (Up TO 0.2) EU/dL 0.2 Ur Leukocyte Esterase (Negative) Large H Urine RBC (0-2) HPF 20-50 H Urine WBC (0-5) HPF >50 H Ur Epithelial Cells (Negative) HPF Few Urine Crystals (Negative) HPF Negative Urine Bacteria (Negative) HPF Few Urine Casts (Negative) LPF 0-2 Hyaline Urine Mucus (Negative) Trace Ur Culture Indicated? Yes Urine Glucose (Negative) mg/dL Negative Sign Out <JETT De La Cruz - Last Filed: 07/30/22 08:53> Sign Out Data: Sign Out Comment: Care transition to Marquis Rosenthal PA-C with CT pending. Receiving IV fluids and ABX for recurrent UTI. Last updated by Liv Piper PA at 07/10/22 15:59
--- NOTE | 2022-07-10 13:00 | DI.CT_ITS ---
Exam(s) CT ABDOMEN PELVIS W EXAM: CT ABDOMEN PELVIS W CLINICAL HISTORY: right flank pain, RLQ pain. TECHNIQUE: Imaging Protocol: Axial computed tomography images with coronal and sagittal reformatted images were created and reviewed CONTRAST MATERIAL: Intravenous: Omnipaque 350 Contrast volume:100 ml Oral: no COMPARISON: CT CT ABDOMEN PELVIS WO/W from 10/18/2020 CT,NM,TMT NM MPI REST STRESS GRP from 11/07/2021 FINDINGS: ABDOMEN: Lung Bases: Normal where visualized. Liver: Enlarged. Fatty infiltration. Mildly nodular contour. No measurable mass. Gallbladder and biliary tract: Status post cholecystectomy. No radiodense calculus or dilation. Pancreas: Normal density, no abnormal calcifications or inflammatory process. Spleen: Mildly enlarged at 15 cm. Kidneys: Normal size, contour and axis. [id number] right hydronephrosis no ureteral stone or b ladder stone visible. Multiple additional bilateral nonobstructing stones. No left hydronephrosis. No masses seen. Adrenal glands: No masses seen. Abdominal Aorta: Abdominal portion non-dilated. Moderate severe atherosclerotic changes. Soft tissues: Stable appearance of lower anterior abdominal wall hernia extending inferiorly into wetzel nus, containing cecum and appendix and distal ileum. PELVIS: Bladder: Empty, not well evaluated.. No calculi.No focal mass. Bowel: Moderate to increased quantity of stool. No obstruction or bowel wall thickening. Appendix no rmal. Peritoneal cavity: No ascites, collection or mesenteric inflammatory response. Bones: Degenerative changes. Reproductive organs: Status post hysterectomy. Lymph nodes: Unremarkable. Impression: [id number] right hydronephrosis without visible obstructing stone. Findings could be secondary to a recently passed stone. Findings called to Liv Piper of the emergency department RADIATION DOSE DELIVERED: 1,508.2mGy.cm Total DLP DATA REPOSITORY: All CT scans at this facility are submitted to the National Radiology Data Registry (NRDR) Dose Index Registry (DIR) with the [employer] (A[employer]). RADIATION OPTIMIZATION: All CT scans at this facility use at least one of these dose optimization te chniques: automated exposure control; mA and/or kV adjustment per patient size (includes targeted exa ms where dose is matched to clinical indication); or iterative reconstruction.
[2022-07-10 13:34] LABS: Lactate 2.4 mmol/L (0.6-1.4)
[2022-07-10 13:37] LABS: Abs Immature Grans 0.03 10^3/uL (0.0-0.06); Absolute Basophil Count 0.02 10^3/uL (0.0-0.2); Absolute Eosinophil Count 0.15 10^3/uL (0.0-0.7); Absolute Lymphocyte Count 3.12 10^3/uL (1.2-3.4); Absolute Monocyte Count 0.82 10^3/uL (0.1-0.8); Absolute Neutrophil Count 6.52 10^3/uL (1.2-6.7); Basophils % 0.2; Eosinophils % 1.4; HCT 34.3 % (36.0-46.0); HGB 11.7 g/dL (11.2-15.7); Immature Grans % 0.3; Lymphocytes % 29.3; MCH 32.1 pg (27.0-33.0); MCHC 34.1 % (32.0-36.0); MCV 94 fL (80-95); Monocytes % 7.7; Neutrophils % 61.1; Platelet Count 183 10^3/uL (130-400); RBC 3.65 10^6/uL (3.93-5.22); RDW 12.8 % (11.7-14.6); RDW-SD 44.1 fL; WBC 10.66 10^3/uL (4.4-10.8)
[2022-07-10 13:50] LABS: ALT 35 U/L (14-59); AST 33 U/L (15-37); Alkaline Phosphatase 113 U/L (46-116); Anion Gap 12.9 mmol/L (3-11); BUN 24 mg/dL (7-18); Bilirubin, Total 1.1 mg/dL (0.2-1.0); CO2 22.1 mmol/L (21.0-32.0); CREATININE 1.2 mg/dL (0.55-1.02); Calcium 9.8 mg/dL (8.5-10.1); Chloride 103 mmol/L (98-107); Estimated GFR 51.18 (mL/min/1.73m2); Glucose 159 mg/dL (74-106); Potassium 4.3 mmol/L (3.5-5.1); Sodium 138 mmol/L (136-145); Total Protein 8.8 g/dL (6.4-8.2)
[2022-07-10] MEDS: Lactated Ringers 1,000 ML 1000 ML IV (14:52)
[2022-07-10] MEDS: Omnipaque 350 MG/ML 500 ML BTL-Imaging package 100 ML IJ (15:28)
[2022-07-10] MEDS: Normal Saline - Diluent 50 ML VIAL IJ (15:29)
[2022-07-10 15:38] VITALS: BP 126/49; PULSE 75; O2SAT 99
[2022-07-10] MEDS: cefTRIAXone 2 GM/50 ML BAG IVPB (15:50)
[2022-07-10] MEDS: Normal Saline 1,000 ML 1000 ML IV (16:40)
--- NOTE | 2022-07-10 17:01 | NUR.NOTE ---
Nursing Note: Referral given to Care Management for [facility]; has appt. the 2nd week of Jul 2022. Please make [facility] aware of visit to ED and results of visit to see if they want to see her sooner.
[2022-07-10 18:38] LABS: Anion Gap 11.1 mmol/L (3-11); BUN 21 mg/dL (7-18); CO2 21.9 mmol/L (21.0-32.0); Calcium 8.8 mg/dL (8.5-10.1); Chloride 106 mmol/L (98-107); Glucose 119 mg/dL (74-106); Potassium 4.3 mmol/L (3.5-5.1); Sodium 139 mmol/L (136-145)
[2022-07-10 18:59] VITALS: BP 142/62; PULSE 62; RESP 16; TEMP 36.3; O2SAT 96
== END 2022-07-10 19:07 | disposition home or self-care (01) ==
PROVIDERS: Physician Assistant; Emergency Provider Physician Assistant; PCP Family Medicine
DX: N13.30 Unspecified hydronephrosis (principal); N39.0 Urinary tract infection, site not specified; E66.9 Obesity, unspecified; I11.0 Hypertensive heart disease with heart failure; I50.9 Heart failure, unspecified; E11.40 Type 2 diabetes mellitus with diabetic neuropathy, unspecified; H16.429 Pannus (corneal), unspecified eye
CPT/HCPCS: 36415; 80048; 80053; 87077; 96361; 96365; 99285; 74177; 81003; 81015; 83605; 85025; 87086; 87186; 99284

== ENCOUNTER 2022-10-25 20:55 | Outpatient (REF) | payer MEDICARE, SELFPAY ==
[2022-10-25 21:23] LABS: Hemoglobin A1C 6.8 % (<5.7)
== END 2022-10-25 20:56 | disposition home or self-care (01) ==
LOC: NCHCN 20:55
PROVIDERS: PCP Family Medicine; Visit Provider Family Medicine
DX: E11.9 Type 2 diabetes mellitus without complications (principal)
CPT/HCPCS: 83036

== ENCOUNTER → 2022-12-11 13:10 | Outpatient (BNVA) | payer MEDICARE, SELFPAY | PROVIDERS: PCP Family Medicine; Visit Provider Student in an Organized Health Care Education/Training Program | DX: M17.11 Unilateral primary osteoarthritis, right knee (principal); M17.12 Unilateral primary osteoarthritis, left knee | CPT/HCPCS: 20610; V5268; J7325 ==

== ENCOUNTER 2023-02-27 14:23 | Outpatient (CLI) | payer MEDICARE, SELFPAY ==
--- NOTE | 2023-02-27 14:00 | DI.RAD_ITS ---
Exam(s) XR HIP LT COMPLETE AP PELVIS EXAM: XR HIP LT COMPLETE AP PELVIS INDICATION: LEFT HIP PAIN. COMPARISON: CR PELVIS AP from 12/14/2016 TECHNIQUE: 2D digital imaging was performed. Three views. FINDINGS: There is severe narrowing of the left hip joint space with a [id number] appearance. There is promi nent periarticular spurring, sclerosis and formation of multiple subchondral cysts, largest at the castillo perior acetabulum. The the right hip joint shows moderate narrowing. There is also mild spurring at the right acetabulum and more prominent spurring at the inferior femoral head. IMPRESSION: Severe degenerative changes of the left hip. Moderate degenerative changes of the right hip. DATA REPOSITORY: RADIATION DOSE DELIVERED:
== END 2023-02-27 14:24 | disposition home or self-care (01) ==
LOC: DIORS 14:23
PROVIDERS: PCP Family Medicine; Referring Provider Family Medicine; Visit Provider Student in an Organized Health Care Education/Training Program
DX: M16.12 Unilateral primary osteoarthritis, left hip
CPT/HCPCS: 99213; 73502

== ENCOUNTER → 2023-03-13 13:06 | Outpatient (BNVA) | payer MEDICARE, SELFPAY | PROVIDERS: PCP Family Medicine; Referring Provider Family Medicine; Visit Provider Nurse Practitioner Adult Health | DX: G62.9 Polyneuropathy, unspecified (principal) | CPT/HCPCS: 95909; 99204; 99214 ==

== ENCOUNTER 2023-03-28 14:12 | Emergency (ER) | payer MEDICARE, SELFPAY ==
[2023-03-28 14:17] VITALS: BP 150/69; PULSE 91; RESP 18; TEMP 36.1; O2SAT 100
--- NOTE | 2023-03-28 15:00 | DI.CT_ITS ---
Exam(s) CT THORACIC LUMBAR SPINE WO EXAM: CT THORACIC LUMBAR SPINE WO CLINICAL HISTORY: fall yesterday, pain. TECHNIQUE: Imaging Protocol: Axial computed tomography images with coronal and sagittal reformatted images were created and reviewed. COMPARISON: No exams were available for comparison FINDINGS: Bones: No fractures or dislocations are seen. The alignment of the spine is normal including the cerv icothoracic junction and the thoracolumbar junction. There are degenerative changes seen throughout the thoracic and lumbar spine. Soft tissues: Atherosclerosis is present. The visualized lungs are clear and well expanded. Inciden britney note is made of bilateral nephrolithiasis/nephrocalcinosis. IMPRESSION: 1. No acute fracture or subluxation is seen in the thoracic or lumbar spine. 2. Findings were discussed with Dr. Aguilar at 4:05 p.m. on 03/28/2023. RADIATION DOSE DELIVERED: 2,597.5mGy.cm Total DLP DATA REPOSITORY: All CT scans at this facility are submitted to the National Radiology Data Registry (NRDR) Dose Index Registry (DIR) with the [employer] (ACR). RADIATION OPTIMIZATION: All CT scans at this facility use at least one of these dose optimization te chniques: automated exposure control; mA and/or kV adjustment per patient size (includes targeted exa ms where dose is matched to clinical indication); or iterative reconstruction.
--- NOTE | 2023-03-28 15:53 | ED.GENADUL_ITS ---
Discharge Plan Discharge Details Chief Complaint: Nk/Back Pain Primary Care Provider: Trev Burr ED Provider: Steven Aguilar Home Meds and New Rx's Prescriptions: No Action multivitamin Tablet 1 tab PO DAILY insulin glargine [Basaglar KwikPen U-100 Insulin] 100 unit/mL (3 mL) insulin pen 20 unit subcut QAM vitamin B complex [B Complex-Vitamin B12] Tablet 1 tab PO DAILY estradiol [Estrace] 0.01 % (0.1 mg/gram) cream 1 appful vaginal DAILY Qty: 42.5 4RF Rx Instructions: daily for 2 weeks then twice weekly Ozempic 1 mg/dose (2 mg/1.5 mL) pen injector 2 mg subcut QWEEK acetaminophen [Tylenol Extra Strength] 500 mg tablet 500 mg PO Q6H PRN ibuprofen 200 mg tablet 200 mg PO QID PRN acyclovir 5 % cream 1 applic TP ONCE PRN diclofenac sodium [Voltaren] 1 % gel 2 gm TP QID PRN amitriptyline 50 mg tablet 50 mg PO DAILY nitroglycerin 0.4 MG tablet, sublingual 0.4 mg Sublingual PRN Patient Comments: 05/04/14: Pt carries NTG but has never had to use it. PG insulin aspart U-100 [Novolog FlexPen U-100 Insulin] 100 unit/mL (3 mL) insulin pen 15 unit subcut TID Lactobacillus acidophilus Tablet,Chewable 1 tab PO DAILY gabapentin 600 mg tablet 600 mg PO QID valacyclovir 1 gram tablet 1,000 mg PO DAILY hydrocodone-acetaminophen 7.5-325 mg tablet 1 tab PO Q6H PRN clotrimazole-betamethasone 1-0.05 % cream 1 applic topical BID 10 Days Qty: 15 2RF atorvastatin 10 mg tablet 10 mg PO DAILY levalbuterol tartrate 45 mcg/actuation HFA aerosol inhaler 2 inh inhalation Q6H spironolactone 25 mg tablet 25 mg PO DAILY Ozempic 0.25 mg or 0.5 mg (2 mg/3 mL) pen injector 0.25 mg subcut QWEEK Rx Instructions: for 4 weeks metformin 1,000 mg tablet 1,000 mg PO BID albuterol sulfate [ProAir HFA] 8.5 GM HFA aerosol inhaler 2 puff Inhalation QID PRN (Reason: Shortness Of Breath) loratadine 10 mg Tablet 10 mg PO DAILY lisinopril 5 mg Tablet 5 mg PO DAILY carvedilol 3.125 mg tablet 12.5 mg PO BID Medical Decision Making 62-year-old female here with fall 3 days ago from chair to the ground with hyperflexion of her back complaining of mid to low midline back pain. Patient is neurologically intact. Plan for CT of the thoracic and lumbar spine to assess for fracture. Offered pain medication patient declined. HPI General Mode of arrival: ambulatory . Date/Time Provider Initiated Documentation: 03/28/23 14:29 . Limitations to Documentation: no limitations . Information obtained by: patient . HPI Narrative: 62-year-old female with multimedical problems including history of morbid obesity, was sitting in chair 3 days ago and chair collapsed. She notes her back hyperflexed. She has had pain in her back since this injury. No new paresthesias or weakness. No bowel or bladder dysfunction. Related Data Home Medications Medication Instructions Recorded Confirmed nitroglycerin 0.4 mg sublingual 0.4 mg sublingual PRN 11/07/12 03/28/23 tablet albuterol sulfate 90 mcg/actuation 2 puff inhalation QID PRN 02/03/13 03/28/23 aerosol inhaler (ProAir HFA) Shortness Of Breath loratadine 10 mg tablet 10 mg PO DAILY 07/09/18 03/28/23 lisinopril 5 mg tablet 5 mg PO DAILY 07/22/18 03/28/23 acetaminophen 500 mg tablet 500 mg PO Q6H PRN 12/19/18 03/28/23 (Tylenol Extra Strength) acyclovir 5 % topical cream 1 applic topical ONCE PRN 12/19/18 03/28/23 diclofenac sodium 1 % topical gel 2 gm topical QID PRN 12/19/18 03/28/23 (Voltaren) ibuprofen 200 mg tablet 200 mg PO QID PRN 12/19/18 03/28/23 carvedilol 3.125 mg tablet 12.5 mg PO BID 04/16/20 03/28/23 Lactobacillus acidophilus 1 tab PO DAILY 10/13/20 03/28/23 gabapentin 600 mg tablet 600 mg PO QID 10/13/20 03/28/23 hydrocodone 7.5 mg-acetaminophen 1 tab PO Q6H PRN 10/13/20 03/28/23 325 mg tablet insulin aspart U-100 100 unit/mL 15 unit subcut TID 10/13/20 03/28/23 (3 mL) subcutaneous pen (Novolog FlexPen U-100 Insulin aspart) valacyclovir 1 gram tablet 1,000 mg PO DAILY 10/13/20 03/28/23 multivitamin 1 tab PO DAILY 11/16/20 03/28/23 clotrimazole-betamethasone 1 1 applic topical BID 10 days #15 01/28/21 03/28/23 %-0.05 % topical cream grams amitriptyline 50 mg tablet 50 mg PO DAILY 12/02/21 03/28/23 estradiol 0.01% (0.1 mg/gram) 1 appful vaginal DAILY #42.5 grams 10/10/22 03/28/23 vaginal cream (Estrace) semaglutide 1 mg/dose (2 mg/1.5 2 mg subcut QWEEK 12/11/22 03/28/23 mL) subcutaneous pen injector (Ozempic) vitamin B complex (B 1 tab PO DAILY 12/11/22 03/28/23 Complex-Vitamin B12 tablet) atorvastatin 10 mg tablet 10 mg PO DAILY 12/28/22 03/28/23 levalbuterol tartrate 45 2 inh inhalation Q6H 12/28/22 03/28/23 mcg/actuation aerosol inhaler metformin 1,000 mg tablet 1,000 mg PO BID 12/28/22 03/28/23 semaglutide 0.25 mg or 0.5 mg (2 0.25 mg subcut QWEEK 12/28/22 03/28/23 mg/3 mL) subcutaneous pen injector (Ozempic) spironolactone 25 mg tablet 25 mg PO DAILY 12/28/22 03/28/23 insulin glargine 100 unit/mL (3 20 unit subcut QAM 03/13/23 03/28/23 mL) subcutaneous pen (Basaglar KwikPen U-100 Insulin) Previous Rx's Medication Instructions Recorded clotrimazole-betamethasone 1 1 applic topical BID 10 days #15 01/28/21 %-0.05 % topical cream grams estradiol 0.01% (0.1 mg/gram) 1 appful vaginal DAILY #42.5 grams 10/10/22 vaginal cream (Estrace) Allergies Allergy/AdvReac Type Severity Reaction Status Date / Time erythromycin base Allergy Severe hives Verified 03/28/23 14:24 Sulfa (Sulfonamide Allergy Severe hives Verified 03/28/23 14:24 Antibiotics) sulfamethoxazole Allergy Verified 03/28/23 14:24 [From Bactrim] trimethoprim [From Bactrim] Allergy Verified 03/28/23 14:24 magnesium AdvReac Severe Diarrhea Verified 03/28/23 14:24 nitrofurantoin AdvReac Severe depression Verified 03/28/23 14:24 [From Macrobid] clomipramine [From Anafranil] AdvReac Intermediate Other (See Verified 03/28/23 14:24 Comment) ketamine AdvReac Intermediate hallucinati Verified 03/28/23 14:24 ons General Stated Complaint: Nk/Back Pain GROVER: 3 Review of Systems Musculoskeletal Musculoskeletal: Reports as per HPI Neurologic Neurologic: Reports as per HPI PFSH All Active Problems Hematuria (Acute) Recurrent UTI (Chronic) Flank pain (Acute) Cystocele (Acute 04/13/15) Primary osteoarthritis of both knees (Chronic 07/26/15) Synvisc injections for many years Most recent Synvisc injections: 06/05/2022; 12/02/2021; 12/11/22 Incarcerated incisional hernia (Acute) Hyperglycemia (Chronic) Lactic acid acidosis (Acute) Renal insufficiency (Chronic) Leukocytosis (leucocytosis) (Acute) Morbid obesity (Chronic) Hydronephrosis (Acute) Diabetes (Chronic) Right rotator cuff tendinitis (Acute) Steroid injection: 02/07/2021; 04/14/2019 Breast pain, left (Acute) 09/2019. Physical exam unremarkable. No additional testing ordered. Tendinitis of left elbow (Acute) Gross hematuria (Acute) Diarrhea (Acute) UTI (urinary tract infection) (Acute) Vaginal dryness, menopausal (Acute) Osteoarthritis of left hip (Acute) Peripheral neuropathy (Acute) Medical History Acute stress disorder Anemia Anxiety Bile acid malabsorption syndrome CAD (coronary artery disease) Calcium nephrolithiasis Cardiomyopathy Chronic leg pain Chronic lower back pain Chronic pain Cirrhosis of liver Congenital ureterovesical obstruction Congestive heart failure Degenerative joint disease Depression Diabetes mellitus Diarrhea Essential hypertension Former smoker quit smoking 07/23/16 Herpes simplex History of palpitations Hyperparathyroidism Hypertension Hypomagnesemia Incisional hernia Kidney stone Neuropathy Obsessive compulsive disorder Obstructive nephropathy Osteoarthritis of hips, bilateral Osteoma Other chromoabnormalities of urine Plantar fasciitis PTSD (post-traumatic stress disorder) Sarcoidosis Sleep apnea Thyroid nodule Urinary incontinence Urinary incontinence, mixed Vaginal wall prolapse Vaginitis Vertigo Surgical History Abdominal hysterectomy Cholecystectomy Fracture, Open Treatment Lithotripsy Oophrectomy, Both Open Carpal Tunnel release Tonsillectomy and adenoidectomy Family History Mother Diabetes Heart disease Father Personal history of malignant neoplasm Lung Cancer Sister Personal history of malignant neoplasm Thyroid Cancer Social History Smoking/Tobacco Use Status: Former Tobacco Use Smoking risk assessment performed?: Yes Alcohol Intake: never Drug use: Occasionally Substance use type: marijuana Details: eatable Housing: apartment Current gender identity: female Do you feel safe at home: Yes Do you feel safe in your relationship?: Yes Exam Const General: cooperative and no acute distress HENMT Mouth: moist mucous membranes Cardio Rate: regular rate and not tachycardic Rhythm: regular rhythm Back/Spine/Pelvis Cervical Spine: cervical ROM normal, No cervical spinal tenderness and No step off deformity Thoracic/Lumbar Spine: thoracic spinal tenderness (low thoracic ttp ) and lumbar spinal tenderness (upper lumbar ttp ) Skin General skin exam: no rashes or lesions noted Neuro General: patient alert, patient awake and tone normal Extrem Other: Motor and sensation intact distal lower extremities Course Vital Signs Vital signs: Vital Signs Temperature 36.1 C L 03/28/23 14:17 Pulse 91 H 03/28/23 14:17 Respiratory Rate 18 03/28/23 14:17 Blood Pressure 150/69 H 03/28/23 14:17 Pulse Oximetry 100 03/28/23 14:17 Temperature 36.1 C L 03/28/23 14:17 Pulse 91 H 03/28/23 14:17 Respiratory Rate 18 03/28/23 14:17 Respiratory Effort Normal, Non-Labored 03/28/23 14:21 Blood Pressure 150/69 H 03/28/23 14:17 Pulse Oximetry 100 03/28/23 14:17 Oxygen Delivery Method Room Air 03/28/23 14:17 Oxygen Flow Rate 0 03/28/23 14:17 Pain Level 8 03/28/23 14:28
--- NOTE | 2023-03-28 16:13 | W.EDPROG ---
Date of service: 03/28/23 Time of Service: 16:13 Medical Decision Making Patient was initially placed in the queue for signout. This was discontinued as results became available. CT of the thoracic and lumbar spine was interpreted by radiology as negative. No fracture. Suspect back sprain. Plan for discharge with outpatient follow-up. Discharge Plan Disposition Patient Disposition: Home Condition: Stable Discharge Details Clinical Impression: Thoracic back sprain Primary Care Provider: Trev Burr ED Provider: Steven Aguilar Home Meds and New Rx's Prescriptions: Continued multivitamin Tablet 1 tab PO DAILY vitamin B complex [B Complex-Vitamin B12] Tablet 1 tab PO DAILY estradiol [Estrace] 0.01 % (0.1 mg/gram) cream 1 appful vaginal DAILY Qty: 42.5 4RF Rx Instructions: daily for 2 weeks then twice weekly Ozempic 1 mg/dose (2 mg/1.5 mL) pen injector 2 mg subcut QWEEK acetaminophen [Tylenol Extra Strength] 500 mg tablet 500 mg PO Q6H PRN ibuprofen 200 mg tablet 200 mg PO QID PRN acyclovir 5 % cream 1 applic TP ONCE PRN diclofenac sodium [Voltaren] 1 % gel 2 gm TP QID PRN amitriptyline 50 mg tablet 50 mg PO DAILY nitroglycerin 0.4 MG tablet, sublingual 0.4 mg Sublingual PRN Patient Comments: 05/04/14: Pt carries NTG but has never had to use it. PG insulin aspart U-100 [Novolog FlexPen U-100 Insulin] 100 unit/mL (3 mL) insulin pen 15 unit subcut TID Lactobacillus acidophilus Tablet,Chewable 1 tab PO DAILY gabapentin 600 mg tablet 600 mg PO QID valacyclovir 1 gram tablet 1,000 mg PO DAILY hydrocodone-acetaminophen 7.5-325 mg tablet 1 tab PO Q6H PRN clotrimazole-betamethasone 1-0.05 % cream 1 applic topical BID 10 Days Qty: 15 2RF atorvastatin 10 mg tablet 10 mg PO DAILY levalbuterol tartrate 45 mcg/actuation HFA aerosol inhaler 2 inh inhalation Q6H spironolactone 25 mg tablet 25 mg PO DAILY Ozempic 0.25 mg or 0.5 mg (2 mg/3 mL) pen injector 0.25 mg subcut QWEEK Rx Instructions: for 4 weeks metformin 1,000 mg tablet 1,000 mg PO BID albuterol sulfate [ProAir HFA] 8.5 GM HFA aerosol inhaler 2 puff Inhalation QID PRN (Reason: Shortness Of Breath) loratadine 10 mg Tablet 10 mg PO DAILY lisinopril 5 mg Tablet 5 mg PO DAILY carvedilol 3.125 mg tablet 12.5 mg PO BID No Action insulin glargine [Basaglar KwikPen U-100 Insulin] 100 unit/mL (3 mL) insulin pen 16 unit subcut QAM Discharge Instructions Instructions: Fall Prevention (ED), Thoracic Back Strain (ED) Additional Instructions: Please avoid activities that worsen pain. Please contact your primary care physician to arrange follow-up. Return to the ER immediately for any worsening or new concerning symptoms. Referrals: Trev Burr MD [Primary Care Provider] - Discharge Data Discharge Date/Time-TO BE ENTERED AT DEPARTURE: 03/28/23 16:44
[2023-03-28 16:38] VITALS: BP 145/68; PULSE 91; TEMP 36.4; O2SAT 98
== END 2023-03-28 16:44 | disposition home or self-care (01) ==
PROVIDERS: Emergency Provider Student in an Organized Health Care Education/Training Program; PCP Family Medicine
DX: M54.9 Dorsalgia, unspecified (principal); W07.XXXA Fall from chair, initial encounter; M54.2 Cervicalgia
CPT/HCPCS: 99284; 72128; 72131; 99283

== ENCOUNTER 2023-04-06 03:58 | Outpatient (CLI) | payer MEDICARE, SELFPAY ==
[2023-04-06 12:22] LABS: HCT 35.5 % (36.0-46.0); MCH 31.8 pg (27.0-33.0); MCHC 33.8 % (32.0-36.0); MCV 94 fL (80-95); MPV 9.9 fL (8.0-11.0); Platelet Count 214 10^3/uL (130-400); RBC 3.77 10^6/uL (3.93-5.22); RDW 12.7 % (11.7-14.6); RDW-SD 43.8 fL; WBC 9.23 10^3/uL (4.4-10.8)
[2023-04-06 12:49] LABS: Anion Gap 13.8 mmol/L (3-11); BUN 16 mg/dL (7-18); CO2 21.2 mmol/L (21.0-32.0); CREATININE 1.1 mg/dL (0.55-1.02); Calcium 10.1 mg/dL (8.5-10.1); Chloride 103 mmol/L (98-107); Estimated GFR 56.46 (mL/min/1.73m2); Glucose 120 mg/dL (74-106); Potassium 3.8 mmol/L (3.5-5.1); Sodium 138 mmol/L (136-145)
== END 2023-04-06 03:59 | disposition home or self-care (01) ==
LOC: LBO 03:58
PROVIDERS: PCP Family Medicine; Visit Provider Student in an Organized Health Care Education/Training Program
DX: M16.12 Unilateral primary osteoarthritis, left hip (principal); Z01.818 Encounter for other preprocedural examination
CPT/HCPCS: 36415; 80048; 85027; J1030

== ENCOUNTER 2023-04-18 20:07 | Observation (INO) | payer MEDICARE, SELFPAY ==
[2023-04-18] VITALS (14 sets, daily range): BP systolic 91–148; BP diastolic 46–72; PULSE 60–73; RESP 12–18; TEMP 36.2–36.7; O2SAT 94–99; BMI 46.6
[2023-04-18] MEDS: Lactated Ringers 1,000 ML 80 ML IV ×2 (12:50→18:58)
[2023-04-18] MEDS: Celecoxib 200 MG CAP 400 MG PO (12:51)
[2023-04-18] MEDS: Acetaminophen 500 MG TAB 1000 MG PO ×2 (12:51→21:11)
--- NOTE | 2023-04-18 13:10 | W.ANESPRE ---
General Info Date of Service Date Performed: 04/18/23 Height: 5 ft 6 in Weight: 131 kg Body Mass Index (BMI): 46.6 Surgical Procedure: Operation Date: 04/18/23 16:35 Proposed Procedure Side Surgeon p Hip Total Hip Anterior, ACTIS Left Hossein Turner MD Meds Allergies and Home Medications Allergies Allergy/AdvReac Type Severity Reaction Status Date / Time erythromycin base Allergy Severe hives Verified 04/18/23 12:03 Sulfa (Sulfonamide Allergy Severe hives Verified 04/18/23 12:03 Antibiotics) sulfamethoxazole Allergy Verified 04/18/23 12:03 [From Bactrim] trimethoprim [From Bactrim] Allergy Verified 04/18/23 12:03 magnesium AdvReac Severe Diarrhea Verified 04/18/23 12:03 nitrofurantoin AdvReac Severe depression Verified 04/18/23 12:03 [From Macrobid] clomipramine [From Anafranil] AdvReac Intermediate Other (See Verified 04/18/23 12:03 Comment) ketamine AdvReac Intermediate hallucinati Verified 04/18/23 12:03 ons Home Medication Medication Instructions Recorded nitroglycerin 0.4 mg sublingual 0.4 mg sublingual PRN 11/07/12 tablet loratadine 10 mg tablet 10 mg PO DAILY 07/09/18 lisinopril 5 mg tablet 5 mg PO DAILY 07/22/18 acetaminophen 500 mg tablet 500 mg PO Q6H PRN 12/19/18 (Tylenol Extra Strength) acyclovir 5 % topical cream 1 applic topical ONCE PRN 12/19/18 diclofenac sodium 1 % topical gel 2 gm topical QID PRN 12/19/18 (Voltaren) ibuprofen 200 mg tablet 200 mg PO QID PRN 12/19/18 carvedilol 3.125 mg tablet 12.5 mg PO BID 04/16/20 Lactobacillus acidophilus 1 tab PO DAILY 10/13/20 gabapentin 600 mg tablet 600 mg PO QID 10/13/20 hydrocodone 7.5 mg-acetaminophen 1 tab PO Q6H PRN 10/13/20 325 mg tablet insulin aspart U-100 100 unit/mL 15 unit subcut TID 10/13/20 (3 mL) subcutaneous pen (Novolog FlexPen U-100 Insulin aspart) valacyclovir 1 gram tablet 1,000 mg PO DAILY 10/13/20 multivitamin 1 tab PO DAILY 11/16/20 clotrimazole-betamethasone 1 1 applic topical BID 10 days #15 01/28/21 %-0.05 % topical cream grams amitriptyline 50 mg tablet 50 mg PO DAILY 12/02/21 estradiol 0.01% (0.1 mg/gram) 1 appful vaginal DAILY #42.5 grams 10/10/22 vaginal cream (Estrace) semaglutide 1 mg/dose (2 mg/1.5 2 mg subcut QWEEK 12/11/22 mL) subcutaneous pen injector (Keldelice) vitamin B complex (B 1 tab PO DAILY 12/11/22 Complex-Vitamin B12 tablet) atorvastatin 10 mg tablet 10 mg PO DAILY 12/28/22 levalbuterol tartrate 45 2 inh inhalation Q6H 12/28/22 mcg/actuation aerosol inhaler metformin 1,000 mg tablet 1,000 mg PO BID 12/28/22 semaglutide 0.25 mg or 0.5 mg (2 0.25 mg subcut QWEEK 12/28/22 mg/3 mL) subcutaneous pen injector (Keldelice) spironolactone 25 mg tablet 25 mg PO DAILY 12/28/22 insulin glargine 100 unit/mL (3 17 unit subcut BID 04/06/23 mL) subcutaneous pen (Mohiniaglar Jon U-100 Insulin) Current Visit Medications: Current Medications Generic Name Dose Route Start Last Admin Trade Name Freq PRN Reason Stop Dose Admin Acetaminophen 1,000 mg 04/18/23 06:00 04/18/23 12:51 Acetaminophen 500 Mg Tab PO 04/18/23 18:00 1,000 mg PREOP BERT Administration Acetaminophen 1,000 mg 04/18/23 14:00 Acetaminophen 500 Mg Tab PO 05/18/23 13:59 TID [facility] Amitriptyline HCl 50 mg 04/19/23 08:30 Amitriptyline 50 Mg Tab PO 05/19/23 08:29 DAILY [facility] Aspirin 81 mg 04/18/23 20:00 Aspirin E.C. 81 Mg Tabec PO 05/18/23 19:59 BID [facility] Atorvastatin Calcium 10 mg 04/19/23 08:30 Atorvastatin 10 Mg Tab PO 05/19/23 08:29 DAILY [facility] Carvedilol 12.5 mg 04/18/23 20:00 Carvedilol 3.125 Mg Tab PO 05/18/23 19:59 BID BERT Celecoxib 400 mg 04/18/23 06:00 04/18/23 12:51 Celecoxib 200 Mg Cap PO 04/18/23 18:00 400 mg PREOP BERT Administration Celecoxib 200 mg 04/18/23 20:00 Celecoxib 200 Mg Cap PO 05/18/23 19:59 BID BERT Device 1 each 04/18/23 13:00 Inhaler, Assist Device MC 05/18/23 12:59 DIRECTED BERT Dextrose 0 gm 04/18/23 12:27 Glucose Oral Gel 15 Gm/37.5 Gm Tube PO 05/18/23 12:26 DIRECTED PRN Dextrose/Water 0 gm 04/18/23 12:27 Dextrose 50%-Water 25 Gm/50 Ml Syr IVP 05/18/23 12:26 DIRECTED PRN Docusate Sodium 100 mg 04/18/23 12:23 Docusate Sodium 100 Mg Cap PO 05/18/23 12:22 BID PRN PRN Constipation Gabapentin 600 mg 04/18/23 16:00 Gabapentin 600 Mg Tab PO 05/18/23 15:59 QID [facility] Tranexamic Acid 1,000 mg/ 60 mls @ 360 mls/hr 04/18/23 06:00 Sodium Chloride IV 04/18/23 18:00 PREOP [facility] Ringer's Solution 1,000 mls @ 80 mls/hr 04/18/23 06:00 IV 05/17/23 23:59 INFUSION [facility] Cefazolin Sodium 3,000 mg/ 100 mls @ 200 mls/hr 04/18/23 06:00 Sodium Chloride IVPB 04/18/23 16:00 PREOP [facility] Cefazolin Sodium/Dextrose 1 gm in 50 mls @ 100 mls/hr 04/18/23 14:00 Ancef Duplex IVPB 04/19/23 06:29 Q8H [facility] IV Miscellaneous Supplies 1 each 04/18/23 06:00 Iv Access IV 05/17/23 23:59 DIRECTED [facility] Insulin Aspart 15 units 04/18/23 14:00 Insulin Aspart 300 Units/3 Ml Pen SC 05/18/23 13:59 TID [facility] Insulin Aspart 0 units 04/18/23 17:00 Insulin Aspart 300 Units/3 Ml Pen SC 05/18/23 16:59 0800,1200,1700 [facility] Protocol Insulin Glargine 17 units 04/18/23 20:00 Insulin Glargine 300 Units/3 Ml Pen SC 05/18/23 19:59 BID [facility] Levalbuterol 2 puff 04/18/23 13:00 Levalbuterol Hfa 15 Gm Inh IH 05/18/23 12:59 Q6H [facility] Lisinopril 5 mg 04/19/23 08:30 Lisinopril 5 Mg Tab PO 05/19/23 08:29 DAILY [facility] Loratadine 10 mg 04/19/23 08:30 Loratidine 10 Mg Tab PO 05/19/23 08:29 DAILY [facility] Nitroglycerin 0.4 mg 04/18/23 13:00 Nitroglycerin 0.4 Mg Tab SL 05/18/23 12:59 PRN [facility] Non-Formulary Medication 1 tab 04/19/23 08:30 Lactobacillus Acidophilus PO 05/19/23 08:29 DAILY [facility] Non-Formulary Medication 1,000 mg 04/18/23 20:00 Metformin PO 05/18/23 19:59 BID [facility] Ondansetron HCl 4 mg 04/18/23 12:23 Ondansetron 4 Mg/2 Ml Vial IVP 05/18/23 12:22 Q6H PRN PRN Nausea Oxycodone HCl 0 mg 04/18/23 12:23 Oxycodone 5 Mg Tab PO 05/18/23 12:22 Q3H PRN PRN Pain Pantoprazole Sodium 40 mg 04/19/23 07:30 Pantoprazole 40 Mg Tabcr PO 05/19/23 07:29 DAILY@0730 [facility] Polyethylene Glycol 17 gm 04/18/23 12:23 Polyethylene Glycol 3350 17 Gm Packet PO 05/18/23 12:22 BID PRN PRN Constipation Sodium Chloride 0 ml 04/18/23 06:00 Normal Saline Flush 10 Ml Syr IV 05/17/23 23:59 PRN PRN Sodium Chloride 0 ml 04/18/23 06:00 Normal Saline 10 Ml Vial IJ 05/17/23 23:59 DIRECTED PRN Spironolactone 25 mg 04/19/23 08:30 Spironolactone 25 Mg Tab PO 05/19/23 08:29 DAILY [facility] Sterile Water 0 ml 04/18/23 06:00 Water,Injection,Sterile 10 Ml Vial IJ 05/17/23 23:59 DIRECTED PRN Valacyclovir HCl 1,000 mg 04/19/23 08:30 Valacyclovir 1,000 Mg Tab PO 05/19/23 08:29 DAILY [facility]ERT PFSH Active Problems Active Problems: Problem Status Onset Code Lateral epicondylitis of right elbow M77.11 Hematuria R31.9 Recurrent UTI N39.0 Flank pain R10.9 Cystocele 04/13/15 Primary osteoarthritis of both knees 07/26/15 M17.0 Incarcerated incisional hernia K43.0 Hyperglycemia R73.9 Lactic acid acidosis E87.2 Renal insufficiency N28.9 Leukocytosis (leucocytosis) D72.829 Morbid obesity E66.01 Hydronephrosis N13.30 Diabetes E11.9 Right rotator cuff tendinitis M75.81 Breast pain, left N64.4 Tendinitis of left elbow M77.8 Gross hematuria R31.0 Diarrhea R19.7 UTI (urinary tract infection) N39.0 Vaginal dryness, menopausal N95.1 Osteoarthritis of left hip M16.12 Peripheral neuropathy G62.9 Thoracic back sprain S23.9XXA Medical History Medical History Acute stress disorder Anemia Anxiety Bile acid malabsorption syndrome CAD (coronary artery disease) Calcium nephrolithiasis Cardiomyopathy Chronic leg pain Chronic lower back pain Chronic pain Cirrhosis of liver Congenital ureterovesical obstruction Congestive heart failure Degenerative joint disease Depression Diabetes mellitus Diarrhea Essential hypertension Former smoker quit smoking 07/23/16 Herpes simplex History of palpitations Hyperparathyroidism Hypertension Hypomagnesemia Incisional hernia Kidney stone Neuropathy Obsessive compulsive disorder Obstructive nephropathy Osteoarthritis of hips, bilateral Osteoma Other chromoabnormalities of urine Plantar fasciitis PTSD (post-traumatic stress disorder) Sarcoidosis Sleep apnea Thyroid nodule Urinary incontinence Urinary incontinence, mixed Vaginal wall prolapse Vaginitis Vertigo Medical History Comments:: Per pt. does not like Ketamine. Per pt. states she had a hard time waking up, and does not luke Fentanyl, takes a long time waking up, and she needs to know whats happening to stay safe Surgical History Surgical History Abdominal hysterectomy Cholecystectomy Fracture, Open Treatment Lithotripsy Oophrectomy, Both Open Carpal Tunnel release Tonsillectomy and adenoidectomy Tobacco Smoking/Tobacco Use Status: Former Tobacco Use Alcohol Alcohol Intake: current Alcohol intake frequency: holidays/special occasions only Substance Use Substance use: Rarely Substance use type: marijuana Details: edible Vital Signs and Lab Results Vital Signs Most Recent Vital Signs in EMR: Most Recent Vital Signs Temp Pulse Resp BP Pulse Ox 36.4 C L 62 16 148/59 H 97 04/18/23 12:10 04/18/23 12:10 04/18/23 12:10 04/18/23 12:10 04/18/23 12:10 Lab Results Blood Type / Crossmatch: No Data to Display Complete Blood Count: White Blood Count 9.23 10^3/uL (4.4-10.8) 04/06/23 12:02 Red Blood Count 3.77 10^6/uL (3.93-5.22) L 04/06/23 12:02 Hemoglobin 12.0 g/dL (11.2-15.7) 04/06/23 12:02 Hematocrit 35.5 % (36.0-46.0) L 04/06/23 12:02 Platelet Count 214 10^3/uL (130-400) 04/06/23 12:02 Complete Metabolic Panel: Sodium 138 mmol/L (136-145) 04/06/23 12:02 Potassium 3.8 mmol/L (3.5-5.1) 04/06/23 12:02 Chloride 103 mmol/L (98-107) 04/06/23 12:02 Carbon Dioxide 21.2 mmol/L (21.0-32.0) 04/06/23 12:02 BUN 16 mg/dL (7-18) 04/06/23 12:02 Creatinine 1.1 mg/dL (0.55-1.02) H 04/06/23 12:02 Est GFR (CKD-EPI 2020) 56.46 (mL/min/1.73m2) 04/06/23 12:02 Calcium 10.1 mg/dL (8.5-10.1) 04/06/23 12:02 Glucose 120 mg/dL (74-106) H 04/06/23 12:02 Liver Function Panel: No Data to Display Coagulation Panel: No Data to Display Cardiac Panel: No Data to Display Arterial Blood Gas: No Data to Display Venous Blood Gas: No Data to Display Pancreas Panel: No Data to Display Thyroid Panel: No Data to Display Infectious Disease: No Data to Display Blood Cultures: No Data to Display Toxicology Panel: No Data to Display Imaging and Studies Imaging and Studies Study information below may be from another EMR and interpreted by another provider. Please see original notes in EMR for more complete details. EKG Summary: Conclusion Sinus rhythm...normal P axis, V-rate 60- 99 Left bundle branch block...QRSd>120, broad/notched R 01/14/21 Stress Test Summary: Stress ECG Conclusion 1. Resting electrocardiogram showed left bundle branch block 2. Patient underwent pharmacologic stress with regadenoson, coupled with low-level exercise 3. Peak heart rate achieved was 66% of predicted for age 4. The electrocardiographic portion of the test was nondiagnostic due to inadequate heart rate and resting left bundle branch block 5. See MPI report 11/07/21 Echocardiogram Summary: Summary: 1. Left ventricle: The cavity size was normal. The estimated ejection fraction was 40%. Diffuse hypokinesis. The tissue Doppler parameters were abnormal. There was no evidence of elevated ventricular filling pressure by Doppler parameters. 2. Mitral valve: There was mild to moderate regurgitation. 3. Left atrium: The atrium was mildly dilated. 4. Right ventricle: The cavity size was normal. Systolic function was mildly reduced. 5. Atrial septum: No defect or patent foramen ovale was identified. 6. Pulmonary arteries: Pulmonary systolic pressure was in the range of 15mm Hg to 25mm Hg. 7. Inferior vena cava: The vessel was normal in size. The respirophasic diameter changes were in the normal range (greater than or equal to 50%), consistent with normal central venous pressure. 10/09/16 Anesthesia Assessment and Plan Anesthesia History Personal History: Other Family History: No Family History of Anesthesia Complications Exercise Tolerance Exercise Tolerance: Metabolic Equivalents<4 Pertinent Negatives Pertinent Negatives: No Symptoms of GERD, No Major Cardiovascular Symptoms or Complaints and No Major Pulmonary Symptoms or Complaints Cardiac & Pulmonary Exam Cardiac Exam: Normal S1/S2 Heart Sounds Pulmonary Exam: Clear Bilateral Breath Sounds Implantable Cardiac Device Does patient have a Pacemaker or an ICD?: No Airway Exam Known Difficult Airway: No Mallampati Class: 2 Mouth Opening: Normal (> 3cm) Thyromental Distance: Greater than 3 cm Neck Range of Motion: Full ROM Neck Circumference: Normal Teeth Condition: Normal Dentition (3 missing teeth, none loose) ASA Classification ASA Score: ASA 3 Emergency Case?: No NPO Status NPO Status: NPO Clears >2 hours, Solids >8 hours Anesthesia Plan Resuscitation Status: Full Code Anesthesia Technique: Spinal Anesthesia Airway Planned: Natural Airway Monitors Used: Standard Monitors
[2023-04-18] MEDS: ceFAZolin 3,000 MG in Normal Saline 100 ML 200 MG IVPB (13:48)
--- NOTE | 2023-04-18 15:05 | DI.RAD_ITS ---
Exam(s) XR HIP LT IN OR EXAM: XR HIP LT IN OR CLINICAL HISTORY: left hip osteoarthritis TECHNIQUE: 2D and realtime digital imaging was performed. CONTRAST MATERIAL: Refer to procedure report. COMPARISON: CR XR HIP LT COMPLETE AP PELVIS from 02/27/2023 FINDINGS: Fluoroscopy was provided for Dr. Turner during the performance of a left total hip replacement. P lease refer to the procedure report for complete details. Ka,r=7.8 mGy IMPRESSION: RADIATION DOSE DELIVERED:
[2023-04-18] MEDS: fentaNYL 100 MCG/2 ML VIAL IVP (15:40)
--- NOTE | 2023-04-18 15:47 | W.ANESPOSTOP ---
Postoperative Evaluation Date, Time and Location Date Performed: 04/18/23 Time Performed: 16:03 Patient Location: PACU Vital Signs Most Recent Imported Vital Signs: Most Recent Vital Signs Temp Pulse Resp BP Pulse Ox 36.4 C L 62 16 148/59 H 97 04/18/23 12:10 04/18/23 12:10 04/18/23 12:10 04/18/23 12:10 04/18/23 12:10 Pain Score Most Recent Pain Score: Most Recent Pain Score Pain Level 6 04/18/23 12:10 Assessment Mental Status: Awake (Alert & Oriented to Patient Baseline) Airway and Respiratory Function: Patent airway with normal (patient baseline) respiratory exam Cardiovascular Function: Hemodynamically Stable Hydration Status: Adequately Hydrated Nausea & Vomiting: No Nausea or Vomiting Pain: Pain is tolerable per patient Peripheral Nerve Block: Patient did not receive a nerve block Postoperative Comments:: Discussed the need for arterial line and ? of unreliable blood pressure via the cuff/low blood pressure and the use of vasoactives during the case. Her MAP is currently >65, and she feels good.
[2023-04-18] MEDS: Insulin Glargine 300 UNITS/3 ML PEN 17 UNITS SC (18:01)
[2023-04-18] MEDS: Insulin Aspart 300 UNITS/3 ML PEN SC (18:03)
[2023-04-18] MEDS: Gabapentin 600 MG TAB PO ×2 (18:04→21:00)
[2023-04-18] MEDS: oxyCODONE 5 MG TAB PO (19:05)
--- NOTE | 2023-04-18 20:41 | ROE_ITS ---
Date of service: 04/18/23 Time of Service: 15:00 Operative Note Operative Note DATE OF PROCEDURE: 04/18/23 PRE-OP DIAGNOSIS: Left Hip Osteoarthritis POST-OP DIAGNOSIS: same PROCEDURE: Left Anterior Total Hip Arthroplasty with Intraoperative Navigation SURGEON: Hossein Turner REFRACTORY FURNACE DESIGNER: Vicente Montes ANESTHESIA TYPE: Spinal Refer to Anesthesia Record ESTIMATED BLOOD LOSS: 900 PATHOLOGY: none sent TOURNIQUET TIME: 0 COMPLICATIONS: Other (Excessive intraosseous bleeding resulting in blood loss) Patient was transported to: PACU Patient's condition: stable Implants: 1. Depuy Dolph Acetabular Component, 54mm 2. Depuy Acetabular Liner, [id number] 3. Depuy Actis Standard Collared Femoral Stem, Size 7 4. Depuy Altrx Ceramic Femoral Head, Size 36+8.5mm Indications: I have seen Sakshi in clinic for symptoms of hip arthritis, confirmed with radiographic findings. She has exhausted nonoperative methods and was having significant limitations in daily function and desired better function and less pain. I discussed the technical details of a hip replacement. I explained the risks of the procedure to include, but not limited to, bleeding, infection, pain, stiffness, fracture, damage to nerves and vessels, damage to muscles and tendons, loosening, instability, leg length inequality, need for repeat procedure, blood clot and cardiopulmonary demise. Despite these risks, Sakshi elected to proceed. Findings: There was significant signs of arthritis throughout the hip with deformity of the femoral head and large osteophytes. Procedure Description: Sakshi was greeted in the preoperative holding area where the correct side was identified and marked. The consent was reviewed with the patient and signed. The history and physical was updated. All questions were answered. She was taken back to the operating room. A spinal anesthestic was then administered. The feet were wrapped with cast padding and Coban and then placed into the boot liners and then into the boots. Care was taken to protect the skin and make sure the heels were fully down and the boots were stable. The patient was then positioned onto the HANA table. Both legs were held in a neutral position. SCDs were applied. The patient was then slid down onto a peroneal post. Prophylactic antibiotics in the form of Cefazolin were administered. 1g of Tranxemic Acid was given intravenously within 30 minutes of incision. The left leg was then prepped with Chloraprep and draped in a standard fashion. A second prep with Chloraprep was performed prior to placement of a shower-curtain type drape with Iodine impregnated skin protection. A timeout to confirm correct identity, side and site, procedure, allergies, anesthesia, and medical concerns was performed. An obliquely oriented incision was made starting lateral to the ASIS and running distal over the Tensor Fascia Rachelle (TFL) muscle belly toward the fibular head, approximately 10cm. The skin and soft tissue was dissected sharply, through Yue?s fascia, and to the fascia of the TFL. With the fascia and superior border of the IT band identified, the fascia was incised with a new knife just above any perforators from the IT band. The TFL muscle belly was bluntly dissected away from the fascia and moved laterally. The fat between TFL and rectus was identified to ensure the dissection was not within the TFL. Blunt dissection created space between abductors and the capsule and retractor was placed over the lateral femoral neck. The fibers of the rectus femoris tendon were identified and these were freed from the anterior capsule. A second cobra retractor was placed around the medial femoral neck. The TFL was further retracted laterally to show the deep fascia. Careful dissection through this layer identified three main crossing vessels of the lateral femoral circumflex. These were cauterized in multiple locations and then cut without any noticeable bleeding. The TFL was further released bluntly from the deep fascia to expose anterior hip capsule and fat The Joe orthopaedic retractor was then placed beneath the TFL and against sartorius and medial soft tissues to protect and retract the soft tissues. A T-capsulotomy was then performed starting at the superior lateral acetabulum and moving distally to the intertrochanteric ridge. These capsular flaps were tagged with a No. 1 Ethibond and elevated from within. The capsular flaps were released to the shoulder of the lateral neck and to the lesser trochanter to give excellent visualization of the proximal femur. A neck osteotomy was performed using an oscillating saw based on preoperative templates. This cut started in the shoulder and of the lateral neck and exited medially. The saw was at all times directed medially to avoid injury to the greater trochanter. Gross traction was applied to the leg and the osteotomy opened. The femoral head was removed with a corkscrew, making sure to protect the TFL on its exit. The femoral head had large osteophytes and deformity with no intact cartilage. Traction was released after head removal. This was measured on the back table to determine the starting reamer size. Portions of the rectus obscuring visualization were minimally elevated off the superior acetabulum. An anterior retractor was placed over the anterior wall between capsule and labrum and attached to the Gripper retraction system. The femur was rotated to 90 degrees and medial capsule was fully released until the lesser trochanter was palpable and visible; the femur was returned to 30 degrees. A posterior retractor was placed similarly between capsule and labrum. This provided excellent visualization. The contents of the cotyloid fossa were removed with electrocautery and the labrum was removed with a knife. There was a notable floor osteophyte. There was significant chondromalacia of the superior acetabulum. Acetabular reaming began with a 48mm reamer. This first reaming was directed anterior to posterior and medial to get down to the true floor. This was inspected and reamed until the true floor was reached. The anterior retractor was then released and entry and exit was provided by traction on the capsular flaps. I then reamed sequentially up to a 54mm reamer where good fit was obtained. The larger reamers were oriented based on anatomical reference of the anterior and lateral mckeon to ensure proper abduction and anteversion. Positioning and size was confirmed with the fluoroscopy. Throughout this, there was significant oozing from the cut surface of the femur and the cut surface of the acetabulum. Aneshtesia reported low blood pressures and there were no clear single vessel bleeding, so I proceeded expeitiously to insert implants and tampanade bleeding. A 54mm Depuy Dolph acetabular component was selected. The acetabulum was reamed around the periphery with the selected acetabular size to prevent a rim fit. The deep tissues were irrigated. The acetabular component was then impacted in a position of about 40-45 degrees of abduction and 15-20 degrees of anteversion, using the patient?s anatomy as the ultimate landmark. Fluoroscopy was used to confirm this. There was excellent produce team member of the acetabular component and the inserting handle was removed. The acetabular liner, Depuy [id number] polyethylene liner, was inserted and lined up with the tines of the acetabular component. There was no soft tissue interposition. The liner was then impacted into position and confirmed to be well-seated. A portion of the jason-articular cocktail was then injected around the acetabulum into the capsule and periosteum. This cocktail consisted of 123mg of Ropivacaine, 0.25mg of Epinephrine, 0.04mg of Clonidine, and 15mg of Ketorolac, diluted to 50cc. The leg was rotated to 120 degrees. Any remaining medial capsule was released until the lesser trochanter was easily palpable. A retractor was placed medially. The lateral capsule was further released into the shoulder to allow access to the greater trochanter. A Rodriguez retractor was placed over the greater trochanter which allowed the trochanter to flip in front of the capsule for excellent exposure. The leg was brought down into maximal extension and 20 degrees of adduction while ensuring there was no impingement on the acetabulum. Any remnant capsule within the trochanter was released. Piriformis and obturator externis were identified and protected. There was excellent access to the proximal femur. The lateral neck remnant was removed with a rongeur. A blunt canal probe was used to identify the canal and trajectory for later broaching. A box osteotome initiated the broach course. A small curved rasp and a curved curette were used to work laterally. Broaching then began with a starter Actis broach. This was inserted manually around the trochanter and into the canal before mallet blows. The broach was seated to a few millimeters below the cut level based on the neck cut and the preoperative template. Sequential broaching was continued with the [facility] pneumatic broaching device until a tight fit was obtained with good rotational control of the femur. A trial standard neck was inserted along with a +5 trial head. The leg was brought out of extension and adduction and then reduced with traction and internal rotation. The leg was stable anteriorly in a position of 30 degrees of extension and 90 degrees of external rotation. Fluoroscopy was used to ensure there was no fracture and the stem was seated well. Leg lengths were checked with an AP pelvis and pelvic reference points. [employer] navigation system was used to confirm appropriate positioning and leg length and offset. Once content with the desired offset and leg lengths, the leg was brought back into extension, external rotation and adduction. The periosteum and surrounding tissue was injected with remaining portion of the jason-articular cocktail. The proximal femur was irrigated as well as the deep tissues. The 3dimis standard collared stem, size 7, was then manually inserted into the proximal femur making sure to control rotation. It was then malleted into position with light blows, giving breaks to allow bone expansion and decrease risk of fracture. The selected Depuy Altrx Ceramic Head, size 36+8.5mm, was then placed onto the clean and dry trunnion and secured with impaction onto the tapered fit. The leg was brought back out of extension and adduction and reduced with traction and internal rotation. Stability was confirmed with no shuck at 90 degrees of external rotation and 30 degrees of extension. No impingement through range of motion arc. Final x-ray images were obtained with fluoroscopy to confirm adequate positioning and no intraoperative fracture. The deep tissues were thoroughly irrigated with Surgiphor, betadine solution. This was allowed to sit in the wound for 3 minutes before being thoroughly irrigated out with normal saline. The capsule was then reapproximated with the previously placed Ethibond sutures. The TFL fascia was finally closed with a No. 2 Stratafix, barbed suture. Deep tissues were then reapproximated with 0 Vicryl and a running 2-0 Vicryl. The skin was closed with a running 4-0 Monocryl in a subcuticular fashion. This was reinforced with skin glue. A Mepilex silver dressing was applied. At the end of the case, all counts were correct. Sakshi was transferred to the hospital bed without difficulty and suffering no apparent complication. Sakshi has a good prognosis. Physical therapy will start today and without restrictions, weight-bearing as tolerated. Aspirin 81mg BID will be used for DVT prophylaxis.
[2023-04-18 20:53] LABS: HCT 30.3 % (36.0-46.0); HGB 10.2 g/dL (11.2-15.7)
[2023-04-18] MEDS: Aspirin E.C. 81 MG TABEC PO (21:12)
[2023-04-18] MEDS: ceFAZolin 1 GM/50 ML BAG IVPB (21:13)
[2023-04-18] MEDS: Celecoxib 200 MG CAP PO (21:15)
[2023-04-18] MEDS: Carvedilol 12.5 MG TAB PO (21:16)
[2023-04-19 02:48] VITALS: BP 105/65; PULSE 85; RESP 18; TEMP 36; O2SAT 98
[2023-04-19] MEDS: ceFAZolin 1 GM/50 ML BAG IVPB ×2 (03:50→12:38)
[2023-04-19 07:23] VITALS: BP 141/74; PULSE 67; RESP 17; TEMP 36; O2SAT 95
[2023-04-19 08:15] LABS: HCT 28.1 % (36.0-46.0); HGB 9.6 g/dL (11.2-15.7)
[2023-04-19 08:18] LABS: BUN 22 mg/dL (7-18); CREATININE 1.2 mg/dL (0.55-1.02); Calcium 9.2 mg/dL (8.5-10.1); Chloride 101 mmol/L (98-107); Estimated GFR 50.86 (mL/min/1.73m2); Glucose 178 mg/dL (74-106); Potassium 4.2 mmol/L (3.5-5.1); Sodium 136 mmol/L (136-145)
--- NOTE | 2023-04-19 08:22 | PT.INIE ---
PT Notes Visit Reasons: OA L HIP Physical Therapy Inpatient Initial Evaluation Date: 04/19/2023 Referring Doctor: JETT Acosta PT Orders: PT CONSULT: S/P Ortho surgery Precautions: Fall. Standard. WBAT on left LE with AD Patient Profile/Admitting Diagnosis: Blossom is a 62-year-old female with degenerative joint disease of the left hip and is status post left anterior total hip arthroplasty on postoperative day 1. PMHX: All Active Problems?(Updated 04/06/23 @ 22:22 by Hossein Turner MD) Lateral epicondylitis of right elbow (Acute) Hematuria (Acute) Recurrent UTI (Chronic) Flank pain (Acute) Cystocele (Acute 04/13/15) Primary osteoarthritis of both knees (Chronic 07/26/15) Synvisc injections for many years Most recent Synvisc injections: 06/05/2022; 12/02/2021; 12/11/22 Incarcerated incisional hernia (Acute) Hyperglycemia (Chronic) Lactic acid acidosis (Acute) Renal insufficiency (Chronic) Leukocytosis (leucocytosis) (Acute) Morbid obesity (Chronic) Hydronephrosis (Acute) Diabetes (Chronic) Right rotator cuff tendinitis (Acute) Steroid injection: 02/07/2021; 04/14/2019Breast pain, left (Acute) 09/2019.? Physical exam unremarkable.? No additional testing ordered. Thank tendinitis of left elbow (Acute) Gross hematuria (Acute) Diarrhea (Acute) UTI (urinary tract infection) (Acute) Vaginal dryness, menopausal (Acute) Osteoarthritis of left hip (Acute) Peripheral neuropathy (Acute) Thoracic back sprain (Acute) Medical History? Acute stress disorder Anemia Anxiety Bile acid malabsorption syndrome CAD (coronary artery disease) Calcium nephrolithiasis Cardiomyopathy Chronic leg pain Chronic lower back pain Chronic pain Cirrhosis of liver Congenital ureterovesical obstruction Congestive heart failure Degenerative joint disease Depression Diabetes mellitus Diarrhea Essential hypertension Former smoker quit smoking 07/23/16 Herpes simplex History of palpitations Hyperparathyroidism Hypertension Hypomagnesemia Incisional hernia Kidney stone Neuropathy Obsessive compulsive disorder Obstructive nephropathy Osteoarthritis of hips, bilateral Osteoma Other chromoabnormalities of urine Plantar fasciitis PTSD (post-traumatic stress disorder) Sarcoidosis Sleep apnea Thyroid nodule Urinary incontinence Urinary incontinence, mixed Vaginal wall prolapse Vaginitis Vertigo Surgical History? Abdominal hysterectomy Cholecystectomy Fracture, Open Treatment Lithotripsy Oophrectomy, Both Open Carpal Tunnel release Tonsillectomy and adenoidectomy Social History/Home Situation: Lives alone in a private home with 5 steps to enter with rails on both sides. Modified independent indoors and outdoors using 4 wheeled walker. Uses cane on one side when navigating the stairs. Equipment Owned/DME: 4WW, SPC Subjective: Reports 3?4/10 pain on the left hip with weightbearing that somehow subsided with rest. Denies headache, chest pain, and lightheadedness throughout session. Objective: General Observation: Seated on bedside chair. Mepilex Ag over surgical incision. IV through the right UE. Nurse Peggy administering medication to patient at start of session. Mental Status: Alert and oriented as to person, place, time, and purpose. Able to pay attention, focus, and respond appropriately. Pain: As above Vital Signs: Within normal limits is closely monitored by nursing staff ROM: Right Lower Extremity: Hip flexion WFL. Hip abduction WFL. Knee flexion WFL. Ankle dorsiflexion WFL. Ankle plantarflexion WFL. Left Lower Extremity: Hip flexion lacks the last 25% of AROM. Hip abduction WFL. Knee flexion WFL. Ankle dorsiflexion WFL. Ankle plantarflexion WFL. Strength: Right Lower Extremity: Hip flexors 4/5. Hip abductors 4/5. Knee flexors 4/5. Knee extensors 4/5. Ankle dorsiflexors 4/5. Ankle plantarflexors 4/5. Left Lower Extremity: Hip flexors 3-/5. Hip abductors 4-/5. Knee flexors 4-/5. Knee extensors 4-/5. Ankle dorsiflexors 4/5. Ankle plantarflexors 4/5. Bed Mobility/Transfers: Sit to stand standby assist with minimal verbal cueing to use B UE for support pushing off from the armrest for safe for ascent Stand to sit standby assist with minimal verbal cueing to use B UE for support reaching behind for the armrest for safe for descent Gait: Guided patient with level surface ambulation of 250 feet using front wheeled walker with minimal verbal cueing provided for posture, movement sequence, safe gait pattern, and AD management. Standby assist only. Report of no increase in pain in the left hip throughout. Balance: Static Sitting: Normal Dynamic Sitting: Normal Static Standing: Fair Dynamic Standing: Fair Special Tests: Mobility Limitations Standardized Measure [facility] AM-PAC 6 clicks Basic Mobility Inpatient Short Form: Raw Score: 23 CMS Score: 11% deficit Informed Consent/Education: Patient was instructed in purpose of PT consult and plan of care. Agreeable to proceed with established PT POC to achieve personal goals. THERA ACT: Will plan on training patient with correct performance of exercises below to maximize motor control, joint flexibility, soft tissue extensibility of the L hip musculature to facilitate return to independent functional mobility performance prior to today's discharge. Access Code: [email or web address] URL: [email or web address] Date: 04/19/2023 Prepared by: Maryanne Rios Exercises - Gluteal Sets - 1 x daily - 7 x weekly - 1 sets - 10 reps - 5 hold - Supine Heel Slide - 1 x daily - 7 x weekly - 1 sets - 10 reps - 5 hold - Supine Ankle Pumps - 1 x daily - 7 x weekly - 1 sets - 10 reps - 5 hold - Seated March - 1 x daily - 7 x weekly - 1 sets - 10 reps - 5 hold - Seated Long Arc Quad - 1 x daily - 7 x weekly - 1 sets - 10 reps - 5 hold Assessment: Patient requires the use of a front wheeled walker for all mobility ADL performance to maximize independence and reduce fall risk. We will plan on doing another treatment session before patient discharges for stair negotiation training and review of HEP performance. Patient presents with clinical signs and symptoms consistent with current/admitting diagnoses that have resulted to mobility limitations, gait instability, generalized weakness, and overall ADL decline as demonstrated by the following impairment level findings: 1. Decreased strength to L hip major muscle groups 2. Impaired sitting/standing balance 3. Impaired activity tolerance 4. Limitation of joint range of motion in L hip Impairments are contributing to the following functional limitations: 1. Difficulty with ambulation without assistive device 2. Increased completion time for mobility ADL performance 3. Increased risk for falls 4. Difficulty with managing steps alone safely Patient is assessed as a 24067 moderate complexity based on the following: History: 62-year-old female with past medical history as indicated above Examination: Demonstrable impairment in strength, balance, and mobility level with underlying impairments and functional limitations as exhibited above as well as deficit score of 11% utilizing the [facility] Mobility Inpatient Short Form Presentation: Evolving Decision Makin moderate complexity Goals: Goals X1 week 1. Supine-Sit independent 2. Sit-Supine independent 3. Sit-Stand independent 4. Stand-Sit independent with FWW 5. Bed-Chair independent with FWW 6. Chair-Bed independent with FWW 7. Independent gait on level surface with use of FWW for at least 300 feet without report of pain nor dyspnea 8. Independent stair negotiation while holding onto B rails for at least 5 steps without report of pain nor dyspnea 9. Independent with home exercise program 10. Good static and dynamic standing balance/tolerance Plan of Care/Treatment Plan: 1 more treatment session for stair negotiation training and HEP guidance Plan of care has been reviewed with the [facility] MECHANIC providing the service under Physical Therapy direction. Initiate Physical Therapy intervention for pain management as needed, strengthening, bed mobility, transfers, gait, stairs, balance training, and use of assistive device. DISCHARGE RECOMMENDATIONS: [] Home with no services [] [] Home with services [specify] [X] Home with outpatient PT. Home when medically cleared by orthopedic surgeon. Recommend outpatient PT services in order to optimize functional mobility outcomes and facilitate return to independent community ambulation without an assistive device. [] SNF for continued rehabilitation [] [] [facility] Care [] [] SNF versus LTC based on ability to participate and progress [] TREATMENT CODE/TIME: 16736 x 20 minutes for 1 unit, 05921 x 13 minutes for 1 unit beginning at 9:22 AM. Thank you for the opportunity to participate in the care of this patient. Maryanne Rios PT, DPT, CLT [facility] [place], [place]
--- NOTE | 2023-04-19 08:33 | DSE_ITS ---
Date of service: 04/20/23 Time of Service: 08:30 DS: Diagnosis Discharge Diagnosis (1) Osteoarthritis of left hip: Status: Acute Discharge Plan Disposition Patient Disposition: Home Condition: Good Discharge Details Reason For Visit: OA L HIP Admit Date/Time: 04/18/23 20:07 Admit Provider: Hossein Turner Attending Provider: Hossein Turner Primary Care Provider: Trev Burr Hospital Course Hospital Course: Patient was admitted to the medical/surgical floor following her left total hip replacement. The surgery was tolerated well without any notable medical, surgical, or anesthetic complications. Mobilization began postoperatively. She was voiding spontaneously. Vitals were stable. Physical therapy worked with the patient and was cleared for discharge home. No acute medical issues. She has been walking independently throughout the last 24 hours with her walker. Pain was controlled on oral regimen. Home Meds and New Rx's Prescriptions: New celecoxib 200 mg capsule 200 mg PO BID Qty: 60 0RF aspirin 81 mg tablet,delayed release (DR/EC) 81 mg PO BID Qty: 60 0RF acetaminophen 500 mg tablet 1,000 mg PO TID Qty: 90 3RF pantoprazole 40 mg tablet,delayed release (DR/EC) 40 mg PO DAILY Qty: 30 0RF oxycodone 5 mg tablet 5 mg PO Q4H MDD 6 tabs PRN (Reason: pain) Qty: 20 0RF Continued multivitamin Tablet 1 tab PO DAILY insulin glargine [Basaglar KwikPen U-100 Insulin] 100 unit/mL (3 mL) insulin pen 17 unit subcut BID vitamin B complex [B Complex-Vitamin B12] Tablet 1 tab PO DAILY estradiol [Estrace] 0.01 % (0.1 mg/gram) cream 1 appful vaginal DAILY Qty: 42.5 4RF Rx Instructions: daily for 2 weeks then twice weekly Ozempic 1 mg/dose (2 mg/1.5 mL) pen injector 2 mg subcut QWEEK acyclovir 5 % cream 1 applic TP ONCE PRN diclofenac sodium [Voltaren] 1 % gel 2 gm TP QID PRN amitriptyline 50 mg tablet 50 mg PO DAILY nitroglycerin 0.4 MG tablet, sublingual 0.4 mg Sublingual PRN Patient Comments: 05/04/14: Pt carries NTG but has never had to use it. PG insulin aspart U-100 [Novolog FlexPen U-100 Insulin] 100 unit/mL (3 mL) insulin pen 15 unit subcut TID Lactobacillus acidophilus Tablet,Chewable 1 tab PO DAILY gabapentin 600 mg tablet 600 mg PO QID valacyclovir 1 gram tablet 1,000 mg PO DAILY clotrimazole-betamethasone 1-0.05 % cream 1 applic topical BID 10 Days Qty: 15 2RF atorvastatin 10 mg tablet 10 mg PO DAILY levalbuterol tartrate 45 mcg/actuation HFA aerosol inhaler 2 inh inhalation Q6H spironolactone 25 mg tablet 25 mg PO DAILY Ozempic 0.25 mg or 0.5 mg (2 mg/3 mL) pen injector 0.25 mg subcut QWEEK Rx Instructions: for 4 weeks metformin 1,000 mg tablet 1,000 mg PO BID loratadine 10 mg Tablet 10 mg PO DAILY lisinopril 5 mg Tablet 5 mg PO DAILY carvedilol 3.125 mg tablet 12.5 mg PO BID Discontinued acetaminophen [Tylenol Extra Strength] 500 mg tablet 500 mg PO Q6H PRN ibuprofen 200 mg tablet 200 mg PO QID PRN hydrocodone-acetaminophen 7.5-325 mg tablet 1 tab PO Q6H PRN Discharge Instructions Additional Instructions: Total Hip Discharge Instructions Activity: The most important activity is to walk. You should try to take short walks a few times a day. You have no restrictions on movement or positioning, but do not try to force what you do. You will find some stiffness and weakness with hip flexion (lifting your knee). Do not try to strengthen this too early, continue to practice walking and stairs and this will come. - Outpatient physical therapy can be helpful to help return you to a normal gait and improve your flexibility and strength. This can start around 2 weeks. For some patients, it?s not necessary. Usually this is determined at the time of discharge or at the first post-operative visit. - You should wear the ARIES hose on both legs for 2 weeks. Dressing: Keep the surgical dressing in place for at least one week. After the first week it may be removed and replace with light gauze and tape or nothing. It may get wet after 3 days but avoid soaking the dressing. If it gets wet, just lightly pat dry. It is important to always keep some gauze between skin folds, especially when you are sitting. Spend some time with the wound exposed when you are lying flat as the incision does wrinkle onto itself. Medications: - You should take Tylenol and an anti-inflammatory Celebrex as your primary pain control medications. If the Celebrex is too expensive or not covered, please call the office for another alternative (Advil/Ibuprofen or Naproxen/Aleve). - You have been prescribed a stronger pain medication Oxycodone for breakthrough pain, take as needed as prescribed. - You have also been prescribed a stomach acid reduction agent Pantoprozole to help reduce stomach acid and reflux. - You will be taking [Aspirin 81mg twice a day] for DVT prevention unless instructed otherwise. - If you have constipation you should take Colace or Miralax (both duih-was-[id number]). It takes most people 3-4 days to have a bowel movement. Follow-up: 2 weeks If you have any acute concerns or questions, please do not hesitate to contact the office at [phone]. You may contact Dr. Turner with any questions after hours through the hospital at [phone] or on his cell phone at [phone]. 1. Encounter Date and Reason I certify that Blossom Samayoa was seen by Hossein Turner MD on 04/18/23 and that I had a [id number] encounter with this patient that meets the physician face to face encounter requirements. 2. Clinical Findings Supporting Skilled Need and Homebound Status I certify that home health services are medically necessary, include either intermittent custodial and/or physical/speech therapy, and that this patient is homebound in that absences from the home require considerable and taxing effort and are infrequent or of short duration, or are attributable to the need to receive medical care. [X] (a) Attached documentation from encounter provides clinical findings supporting skilled need and homebound status (including what assistance patient requires to leave the home). The encounter with the patient was in whole, or in part, for the following medical condition, which is the primary reason for home health care: OA L HIP Long Term: Physical Therapy: Sakshi would benefit from HomeHealth services due to her weakness and gait abnormalities following left hip replacement. She has no formal restrictions. She is weight-bearing as tolerated. Speech Therapy: Homebound: Sakshi is unable to leave her home unassisted. 3. Certification and Authentication I certify that I composed the above information based on my clinical judgement relating to this patient's medical condition and, if applicable, clinical findings communicated to me by the NPP or inpatient physician who performed the Home Health Referral. All further orders will be obtained through (Community Based Physician - PCP) Stand Alone Forms: Nursing Discharge Form Referrals: Hossein Turner MD [ [facility] ST[facility]FF [facility]YSICIAN] - 05/04/23 10:45 am Activity:: Activity as Tolerated Equipment/Supplies:: Walker Diet:: As Tolerated Discharge Orders Discharge Orders: Discharge Order (Routine); Ordered 04/20/23 Ordered By: Vicente Montes Discharge Data Discharge Date/Time-TO BE ENTERED AT DEPARTURE: 04/20/23 11:29 DS: Summary Time Spent with Patient providing and/or coordinating discharge services: Less than 30 minutes Status at Discharge Functional status at discharge: uses cane/walker Overall status at discharge: patient is progressing back to baseline Mental Status: mental status grossly normal Speech and Movement: speech and movement normal Mood: congruent mood Affect: normal affect Exam Psych Mental Status: mental status grossly normal Speech and Movement: speech and movement normal Mood: congruent mood Affect: normal affect DS: Data Vitals/I&O Vitals and I&O: Vital Signs Temperature 36 C L 04/19/23 07:23 Temperature Source Tympanic 04/19/23 07:23 Pulse 67 04/19/23 07:23 Pulse Rhythm Regular 04/18/23 19:45 Respiratory Rate 17 04/19/23 07:23 Respiratory Effort Normal, Non-Labored 04/18/23 19:45 Respiratory Depth Normal 04/18/23 19:45 Respiratory Pattern Normal 04/18/23 19:45 Blood Pressure 141/74 H 04/19/23 07:23 Pulse Oximetry 95 04/19/23 07:23 Oxygen Delivery Method Room Air 04/19/23 07:23 Oxygen Flow Rate 0 04/19/23 07:23 Pain Level 0 04/19/23 07:23 Comment BP called over radio 04/19/23 07:23 Intake & Output 04/18/23 04/18/23 04/19/23 11:59 23:59 11:59 Intake Total 1310 / 1310 Output Total 900 / 900 Balance 410 / 410 Weight 131 kg Intake: IV 1210 / 1210 Oral 100 / 100 Output: Estimated Blood Loss 900 / 900 Other: Urine Color Light Karol Yellow Urine Appearance Clear Clear Urine Odor None None Emesis Description None Voiding Methods Bedside Commode Data Completed and Pending Labs on day of discharge: Labs from last 24 hours 04/19/23 04/19/23 04/18/23 07:05 07:05 20:30 Hgb 9.6 L 10.2 L Hct 28.1 L 30.3 L Sodium 136 Potassium 4.2 Chloride 101 Carbon Dioxide 21.0 Anion Gap 14.0 H BUN 22 H Creatinine 1.2 H Est GFR (CKD-EPI 2020) 50.86 Glucose 178 H Calcium 9.2 PFSH All Active Problems S/P total left hip arthroplasty (Acute 04/18/23) Lateral epicondylitis of right elbow (Acute) Hematuria (Acute) Recurrent UTI (Chronic) Flank pain (Acute) Cystocele (Acute 04/13/15) Primary osteoarthritis of both knees (Chronic 07/26/15) Synvisc injections for many years Most recent Synvisc injections: 06/05/2022; 12/02/2021; 12/11/22 Incarcerated incisional hernia (Acute) Hyperglycemia (Chronic) Lactic acid acidosis (Acute) Renal insufficiency (Chronic) Leukocytosis (leucocytosis) (Acute) Morbid obesity (Chronic) Hydronephrosis (Acute) Diabetes (Chronic) Right rotator cuff tendinitis (Acute) Steroid injection: 02/07/2021; 04/14/2019 Breast pain, left (Acute) 09/2019. Physical exam unremarkable. No additional testing ordered. Tendinitis of left elbow (Acute) Gross hematuria (Acute) Diarrhea (Acute) UTI (urinary tract infection) (Acute) Vaginal dryness, menopausal (Acute) Osteoarthritis of left hip (Acute) Peripheral neuropathy (Acute) Thoracic back sprain (Acute) Medical History Acute stress disorder Anemia Anxiety Bile acid malabsorption syndrome CAD (coronary artery disease) Calcium nephrolithiasis Cardiomyopathy Chronic leg pain Chronic lower back pain Chronic pain Cirrhosis of liver Congenital ureterovesical obstruction Congestive heart failure Degenerative joint disease Depression Diabetes mellitus Diarrhea Essential hypertension Former smoker quit smoking 07/23/16 Herpes simplex History of palpitations Hyperparathyroidism Hypertension Hypomagnesemia Incisional hernia Kidney stone Neuropathy Obsessive compulsive disorder Obstructive nephropathy Osteoarthritis of hips, bilateral Osteoma Other chromoabnormalities of urine Plantar fasciitis PTSD (post-traumatic stress disorder) Sarcoidosis Sleep apnea Thyroid nodule Urinary incontinence Urinary incontinence, mixed Vaginal wall prolapse Vaginitis Vertigo Surgical History Abdominal hysterectomy Cholecystectomy Fracture, Open Treatment Lithotripsy Oophrectomy, Both Open Carpal Tunnel release Tonsillectomy and adenoidectomy Family History Mother Diabetes Heart disease Father Personal history of malignant neoplasm Lung Cancer Sister Personal history of malignant neoplasm Thyroid Cancer Social History Smoking/Tobacco Use Status: Former Tobacco Use Quit Date: 07/23/16 Smoking risk assessment performed?: Yes Alcohol Intake: current Alcohol Intake frequency: holidays/special occasions only Drug use: Rarely Substance use type: marijuana Details: edible Housing: apartment Current gender identity: female Do you feel safe at home: Yes Additional Social history: lives alone- will be stay 1-3 days in house here Time Spent with Patient Time Spent with Patient: <45 minutes Time was spent: preparing to see the patient(eg.review tests), ordering medications,tests, procedures, indepentently interpreting results and counseling the patient
--- NOTE | 2023-04-19 08:37 | W.PM.OP ---
Date of service: 04/18/23 Time of Service: 15:00 Operative Note Operative Note DATE OF PROCEDURE: 04/18/23 PRE-OP DIAGNOSIS: Left Hip Osteoarthritis POST-OP DIAGNOSIS: same PROCEDURE: Left Anterior Total Hip Arthroplasty with Intraoperative Navigation SURGEON: Hossein Turner COMMUNICATION SIGNALS INTELLIGENCE: Vicente Montes ANESTHESIA TYPE: Spinal Refer to Anesthesia Record ESTIMATED BLOOD LOSS: 900 PATHOLOGY: none sent TOURNIQUET TIME: 0 COMPLICATIONS: Other (Significant intraosseous oozing with resultant blood loss) Patient was transported to: PACU Patient's condition: stable Implants: 1. Depuy [place] Acetabular Component, [48]mm 2. Depuy Acetabular Liner, [48x32]mm 3. Depuy [Actis][Corail] [Standard] Collared Femoral Stem, Size [11] 4. Depuy [Altrx Ceramic Femoral Head], Size [32]mm Indications: I have seen [NAME] in clinic for symptoms of hip arthritis, confirmed with radiographic findings. [NAME] has exhausted nonoperative methods and was having significant limitations in daily function and desired better function and less pain. I discussed the technical details of a hip replacement. I explained the risks of the procedure to include, but not limited to, bleeding, infection, pain, stiffness, fracture, damage to nerves and vessels, damage to muscles and tendons, loosening, instability, leg length inequality, need for repeat procedure, blood clot and cardiopulmonary demise. Despite these risks, [NAME] elected to proceed. Findings: There was significant signs of arthritis throughout the hip. [Details] Procedure Description: [NAME] was greeted in the preoperative holding area where the correct side was identified and marked. The consent was reviewed with the patient and signed. The history and physical was updated. All questions were answered. [NAME] was taken back to the operating room. [A spinal anesthestic was then administered. ]The feet were wrapped with cast padding and Coban and then placed into the boot liners and then into the boots. Care was taken to protect the skin and make sure the heels were fully down and the boots were stable. The patient was then positioned onto the HANA table. Both legs were held in a neutral position. SCDs were applied. The patient was then slid down onto a peroneal post. Prophylactic antibiotics in the form of [Cefazolin] were administered. [1g of Tranxemic Acid was given intravenously within 30 minutes of incision. ]The [right][left] leg was then prepped with Chloraprep and draped in a standard fashion. A second prep with Chloraprep was performed prior to placement of a shower-curtain type drape with Iodine impregnated skin protection. A timeout to confirm correct identity, side and site, procedure, allergies, anesthesia, and medical concerns was performed. An obliquely oriented incision was made starting lateral to the ASIS and running distal over the Tensor Fascia Rachelle (TFL) muscle belly toward the fibular head, approximately 10cm. The skin and soft tissue was dissected sharply, through Yue?s fascia, and to the fascia of the TFL. With the fascia and superior border of the IT band identified, the fascia was incised with a new knife just above any perforators from the IT band. The TFL muscle belly was bluntly dissected away from the fascia and moved laterally. The fat between TFL and rectus was identified to ensure the dissection was not within the TFL. Blunt dissection created space between abductors and the capsule and retractor was placed over the lateral femoral neck. The fibers of the rectus femoris tendon were identified and these were freed from the anterior capsule. A second cobra retractor was placed around the medial femoral neck. The TFL was further retracted laterally to show the deep fascia. Careful dissection through this layer identified three main crossing vessels of the lateral femoral circumflex. These were cauterized in multiple locations and then cut without any noticeable bleeding. The TFL was further released bluntly from the deep fascia to expose anterior hip capsule and fat [The Joe orthopaedic retractor was then placed beneath the TFL and against sartorius and medial soft tissues to protect and retract the soft tissues.] A T-capsulotomy was then performed starting at the superior lateral acetabulum and moving distally to the intertrochanteric ridge. These capsular flaps were tagged with a No. 1 Ethibond and elevated from within. The capsular flaps were released to the shoulder of the lateral neck and to the lesser trochanter to give excellent visualization of the proximal femur. A neck osteotomy was performed using an oscillating saw based on preoperative templates. This cut started in the shoulder and of the lateral neck and exited medially. The saw was at all times directed medially to avoid injury to the greater trochanter. Gross traction was applied to the leg and the osteotomy opened. The femoral head was removed with a corkscrew, making sure to protect the TFL on its exit. Traction was released after head removal. This was measured on the back table to determine the starting reamer size. Portions of the rectus obscuring visualization were minimally elevated off the superior acetabulum. An anterior retractor was placed over the anterior wall between capsule and labrum and attached to the Gripper retraction system. The femur was rotated to 90 degrees and medial capsule was fully released until the lesser trochanter was palpable and visible; the femur was returned to 30 degrees. A posterior retractor was placed similarly between capsule and labrum. This provided excellent visualization. The contents of the cotyloid fossa were removed with electrocautery and the labrum was removed with a knife. [There was a notable floor osteophyte. ][There was significant chondromalacia of the superior acetabulum. ] Acetabular reaming began with a [44]mm reamer. This first reaming was directed anterior to posterior and medial to get down to the true floor. This was inspected and reamed until the true floor was reached. The anterior retractor was then released and entry and exit was provided by traction on the capsular flaps. I then reamed sequentially up to a [47]mm reamer where good fit was obtained. The larger reamers were oriented based on anatomical reference of the anterior and lateral mckeon to ensure proper abduction and anteversion. Positioning and size was confirmed with the fluoroscopy. A [48]mm Depuy [place] acetabular component was selected. [The acetabulum was reamed around the periphery with the selected acetabular size to prevent a rim fit.] The deep tissues were irrigated. The acetabular component was then impacted in a position of about 40-45 degrees of abduction and 15-20 degrees of anteversion, using the patient?s anatomy as the ultimate landmark. Fluoroscopy was used to confirm this. There was excellent freezer tunnel operator of the acetabular component and the inserting handle was removed. [A primary acetabular screw was placed into the ilium by drilling through one of the holes in the acetabular component. This was measured and an approrpriately sized screw was placed with excellent purchase. It was checked not to be proud. ] [A second screw was placed in a similar fashion.] The acetabular liner, Depuy [48x32]mm polyethylene liner, was inserted and lined up with the tines of the acetabular component. There was no soft tissue interposition. The liner was then impacted into position and confirmed to be well-seated. A portion of the jason-articular cocktail was then injected around the acetabulum into the capsule and periosteum. This cocktail consisted of 123mg of Ropivacaine, 0.25mg of Epinephrine, 0.04mg of Clonidine, and 15mg of Ketorolac, diluted to 50cc. The leg was rotated to 120 degrees. Any remaining medial capsule was released until the lesser trochanter was easily palpable. A retractor was placed medially. The lateral capsule was further released into the shoulder to allow access to the greater trochanter. A Rodriguez retractor was placed over the greater trochanter which allowed the trochanter to flip in front of the capsule for excellent exposure. The leg was brought down into maximal extension and 20 degrees of adduction while ensuring there was no impingement on the acetabulum. Any remnant capsule within the trochanter was released. Piriformis and obturator externis were identified and protected. There was excellent access to the proximal femur. The lateral neck remnant was removed with a rongeur. A blunt canal probe was used to identify the canal and trajectory for later broaching. A box osteotome initiated the broach course. A small curved rasp and a curved curette were used to work laterally. Broaching then began with a [size 8 Corail broach][starter Actis broach]. This was inserted manually around the trochanter and into the canal before mallet blows. The broach was seated to [the neck cut level][a few millimeters below the cut level] based on the neck cut and the preoperative template. Sequential broaching was continued with the Kincise pneumatic broaching device until a tight fit was obtained with good rotational control of the femur. A trial [standard] neck was inserted along with a [+5] trial head. The leg was brought out of extension and adduction and then reduced with traction and internal rotation. The leg was stable anteriorly in a position of 30 degrees of extension and 90 degrees of external rotation. Fluoroscopy was used to ensure there was no fracture and the stem was seated well. Leg lengths were checked with an AP pelvis and pelvic reference points. [[employer] navigation system was used to confirm appropriate positioning and leg length and offset. ][CHANGES] Once content with the desired offset and leg lengths, the leg was brought back into extension, external rotation and adduction. The periosteum and surrounding tissue was injected with remaining portion of the jason-articular cocktail. The proximal femur was irrigated as well as the deep tissues. The Depuy [Actis][Corail] [standard] collared stem, size [11], was then manually inserted into the proximal femur making sure to control rotation. It was then malleted into position with light blows, giving breaks to allow bone expansion and decrease risk of fracture. The selected Depuy [Altrx Ceramic Head], size [32]mm, was then placed onto the clean and dry trunnion and secured with impaction onto the tapered fit. The leg was brought back out of extension and adduction and reduced with traction and internal rotation. Stability was confirmed with no shuck at 90 degrees of external rotation and 30 degrees of extension. No impingement through range of motion arc. Final x-ray images were obtained with fluoroscopy to confirm adequate positioning and no intraoperative fracture. [COMPLICATION] The deep tissues were thoroughly irrigated with Surgiphor, betadine solution. This was allowed to sit in the wound for 3 minutes before being thoroughly irrigated out with normal saline. The capsule was then reapproximated with the previously placed Ethibond sutures. The TFL fascia was finally closed with a No. 2 Stratafix, barbed suture. Deep tissues were then reapproximated with 0 Vicryl and a running 2-0 Vicryl. The skin was closed with a running 4-0 Monocryl in a subcuticular fashion. This was reinforced with skin glue. A Mepilex silver dressing was applied. At the end of the case, all counts were correct. [NAME] was transferred to the hospital bed without difficulty and suffering [no apparent complication]. [NAME] has a good prognosis. Physical therapy will start today and without restrictions, weight-bearing as tolerated. [Aspirin 81mg BID] will be used for DVT prophylaxis.
[2023-04-19] MEDS: Insulin Aspart 300 UNITS/3 ML PEN SC ×3 (08:40→17:19)
[2023-04-19] MEDS: Insulin Glargine 300 UNITS/3 ML PEN 17 UNITS SC ×2 (08:40→20:53)
[2023-04-19] MEDS: Carvedilol 12.5 MG TAB PO ×2 (08:42→20:51)
[2023-04-19] MEDS: Celecoxib 200 MG CAP PO ×2 (08:42→20:51)
[2023-04-19] MEDS: metFORMIN 500 MG TAB 1000 MG PO ×2 (08:42→17:19)
[2023-04-19] MEDS: Aspirin E.C. 81 MG TABEC PO ×2 (08:42→20:51)
[2023-04-19] MEDS: Lactobacillus Acidophilus CAP 1 CAP PO (08:42)
[2023-04-19] MEDS: Amitriptyline 50 MG TAB PO (08:43)
[2023-04-19] MEDS: Spironolactone 25 MG TAB PO (08:43)
[2023-04-19] MEDS: Pantoprazole 40 MG TABCR PO (08:43)
[2023-04-19] MEDS: Gabapentin 600 MG TAB PO ×4 (08:43→20:51)
[2023-04-19] MEDS: Lisinopril 5 MG TAB PO (08:43)
[2023-04-19] MEDS: Atorvastatin 10 MG TAB PO (08:43)
[2023-04-19] MEDS: Acetaminophen 500 MG TAB 1000 MG PO ×3 (08:43→20:50)
--- NOTE | 2023-04-19 10:30 | PDOC.CMIN ---
Date of service: 04/19/23 Time of Service: 10:30 Care Management Initial Assmt Initial Assessment REASON FOR HOSPITALIZATION:: OA L Hip PREVIOUS FUNCTIONAL STATUS/SOCIAL/FAMILY SUPPORTS:: Sakshi lives alone in an apartment in [facility]. She receives disability benefits. She has no family locally but has lots of friends. She shares her friends are older in age and she is usually the one to care for them. Patient is independent with her ADLs at baseline but states she can no longer stand for long periods of time, so she now has a mortgage broker once a week. Patient was getting MOWs but canceled the service as she did not like the meals. She now prepares simple meals for herself such as eggs and drinks high protein shakes. She also occasionally buys frozen meals. CURRENT FUNCTIONAL STATUS:: Sakshi is sitting in a chair when CM comes to meet with her. She is pleasant and readily engages in conversation. She shares she has lived alone and has been independent all of her adult life except for 2 years during which she was . She states she had a PT evaluation this morning and did pretty well. She is looking forward to returning home soon and says she will be sure to follow Dr. Turner's instructions, so she doesn't have to return to the hospital. ADVANCE DIRECTIVES:: On file but patient states she is in the process of revising it. She wishes to change her Health Care Agent from Maria L Gonzalez to Kristian Dsouza. She states if someone needs to be consulted about her care before her AD is revised, her sister Archana Esquivel should be the person consulted. Has patient been provided with info about the portal/API?: Yes Did the patient sign up for the portal?: Yes (Previously enrolled) CODE STATUS:: Full Code INSURANCE COVERAGE / FINANCIAL ISSUES:: Medicare and Financial Asst 100 CURRENT HOME/COMMUNITY SERVICES/EQUIPMENT:: HH RN, mortgage broker once a week through To, rollator, several canes, commode, grab bars in shower, and shower chair. PRIMARY CARE PHYSICIAN:: Trev Burr MD POTENTIAL DISCHARGE NEEDS:: Follow up appointments with PCP and Dr. Turner, resumption of HH RN and new HH PT. PATIENT/FAMILY EDUCATION NEEDS:: Review of discharge instructions including medications, limitations and follow up plan of care; discuss Ask Me Three and self management. ANTICIPATED BARRIERS TO DISCHARGE:: None. TRANSPORTATION:: Via [facility] private motor bus driver. PLAN:: Sakshi will likely be discharged home with a resumption of HH RN and new HH PT when medically cleared by provider. She will follow up with her PCP, Dr. Turner and plan of care as instructed. She will be transported home via [facility] private motor bus driver, coordinated by CM, when ready. CM will continue to follow. PFSH All Active Problems Lateral epicondylitis of right elbow (Acute) Hematuria (Acute) Recurrent UTI (Chronic) Flank pain (Acute) Cystocele (Acute 04/13/15) Primary osteoarthritis of both knees (Chronic 07/26/15) Synvisc injections for many years Most recent Synvisc injections: 06/05/2022; 12/02/2021; 12/11/22 Incarcerated incisional hernia (Acute) Hyperglycemia (Chronic) Lactic acid acidosis (Acute) Renal insufficiency (Chronic) Leukocytosis (leucocytosis) (Acute) Morbid obesity (Chronic) Hydronephrosis (Acute) Diabetes (Chronic) Right rotator cuff tendinitis (Acute) Steroid injection: 02/07/2021; 04/14/2019 Breast pain, left (Acute) 09/2019. Physical exam unremarkable. No additional testing ordered. Tendinitis of left elbow (Acute) Gross hematuria (Acute) Diarrhea (Acute) UTI (urinary tract infection) (Acute) Vaginal dryness, menopausal (Acute) Osteoarthritis of left hip (Acute) Peripheral neuropathy (Acute) Thoracic back sprain (Acute) Medical History Acute stress disorder Anemia Anxiety Bile acid malabsorption syndrome CAD (coronary artery disease) Calcium nephrolithiasis Cardiomyopathy Chronic leg pain Chronic lower back pain Chronic pain Cirrhosis of liver Congenital ureterovesical obstruction Congestive heart failure Degenerative joint disease Depression Diabetes mellitus Diarrhea Essential hypertension Former smoker quit smoking 07/23/16 Herpes simplex History of palpitations Hyperparathyroidism Hypertension Hypomagnesemia Incisional hernia Kidney stone Neuropathy Obsessive compulsive disorder Obstructive nephropathy Osteoarthritis of hips, bilateral Osteoma Other chromoabnormalities of urine Plantar fasciitis PTSD (post-traumatic stress disorder) Sarcoidosis Sleep apnea Thyroid nodule Urinary incontinence Urinary incontinence, mixed Vaginal wall prolapse Vaginitis Vertigo Surgical History Abdominal hysterectomy Cholecystectomy Fracture, Open Treatment Lithotripsy Oophrectomy, Both Open Carpal Tunnel release Tonsillectomy and adenoidectomy Family History Mother Diabetes Heart disease Father Personal history of malignant neoplasm Lung Cancer Sister Personal history of malignant neoplasm Thyroid Cancer Social History Smoking/Tobacco Use Status: Former Tobacco Use Quit Date: 07/23/16 Smoking risk assessment performed?: Yes Alcohol Intake: current Alcohol Intake frequency: holidays/special occasions only Drug use: Rarely Substance use type: marijuana Details: edible Housing: apartment Current gender identity: female Do you feel safe at home: Yes Additional Social history: lives alone- will be stay 1-3 days in house here
[2023-04-19 11:09] VITALS: BP 97/63; PULSE 69; RESP 18; TEMP 36.4; O2SAT 96
--- NOTE | 2023-04-19 12:43 | INDS_ITS ---
PT Notes Visit Reasons: OA L HIP Access Code: [email or web address] URL: [email or web address] Date: 04/19/2023 Prepared by: Maryanne Rios Exercises - Gluteal Sets - 1 x daily - 7 x weekly - 1 sets - 10 reps - 5 hold - Supine Heel Slide - 1 x daily - 7 x weekly - 1 sets - 10 reps - 5 hold - Supine Ankle Pumps - 1 x daily - 7 x weekly - 1 sets - 10 reps - 5 hold - Seated March - 1 x daily - 7 x weekly - 1 sets - 10 reps - 5 hold - Seated Long Arc Quad - 1 x daily - 7 x weekly - 1 sets - 10 reps - 5 hold
--- NOTE | 2023-04-19 13:05 | W.PM.PROGNOT ---
Date of Service Date of service: 04/19/23 Time of Service: 13:05 Assessment and Plan Assessment and plan (1) S/P total left hip arthroplasty: Status: Acute Assessment and plan: Sakshi is relatively comfortable postop day 1 from a left total hip replacement. She does get increased pain after working with physical therapy. Physical therapy is due to come back to work with her on ambulating stairs and getting up and walking again. She does express a desire to stay 1 more night due to lack of support from home, but is feeling more confident about being able to ambulate on her own. She should continue to weight-bear as tolerated and get herself up as often as she feels comfortable for ambulation with a walker. She is more optimistic on her ability to return home after discharge from the hospital rather than go to a skilled nursing. We will check on her progress tomorrow. Subjective Subjective Interval history since last seen: Sakshi is postop day 1 from a left total hip replacement and doing well. She states that she was very comfortable overnight and really had no pain in her left hip. She was able to get up and walk around the [place] with physical therapy and felt very good about herself and her ability to do so. Unfortunately, a couple of hours later she noticed an increase in her soreness and pain in her left hip. She states it is not unbearable at this time, however she did not expect this increase in pain. She relates again that she lives at home and expresses a desire to at least spend one more night as she does not have much support when she gets home. She also relates that she tends to get a yeast infection after a course of antibiotics and wanted people to be aware that she may need a medication when she is discharged that she can arrange with her PCP Dr. Burr. Exam Narrative Exam Narrative: Exam of the left hip today shows that the dressing is in place without any signs of drainage from the wound. No blood into the bandage (Mepilex dressing). Passive range of motion of the hip does not elicit pain. Objective Last Vital Signs Temp 97.5 F L 04/19/23 11:09 Pulse 69 04/19/23 11:09 Resp 18 04/19/23 11:09 BP 97/63 L 04/19/23 11:09 Pulse Ox 96 04/19/23 11:09 Laboratory Results - last 24 hr 04/18/23 04/19/23 04/19/23 20:30 07:05 07:05 Hgb 10.2 L 9.6 L Hct 30.3 L 28.1 L Sodium 136 Potassium 4.2 Chloride 101 Carbon Dioxide 21.0 Anion Gap 14.0 H BUN 22 H Creatinine 1.2 H Est GFR (CKD-EPI 2020) 50.86 Glucose 178 H Calcium 9.2 Time Spent with Patient Time Spent with Patient: <25 minutes Time was spent: preparing to see the patient(eg.review tests), indepentently interpreting results and counseling the patient
[2023-04-19] MEDS: oxyCODONE 5 MG TAB PO (14:07)
[2023-04-19 14:58] VITALS: BP 94/61; PULSE 67; RESP 18; TEMP 36.7; O2SAT 94
--- NOTE | 2023-04-19 17:01 | PT.INTREAT ---
Date of service: 04/19/23 Time of Service: 16:22 PT Notes Visit Reasons: OA L HIP Inpatient Physical Therapy Treatment Note [facility] Date: 04/19/23 PRECAUTIONS: Fall, standard, WBAT SUBJECTIVE: Patient appears eager to participate in therapy OBJECTIVE: Sitting up in recliner ? PAIN: Reports negligible pain in left quad, as well as 0/10 in left hip VITALS: monitored by nursing staff ?? ? BED MOBILITY/TRANSFERS? Rolling L/R: not assessed Supine-sit: not assessed ? Sit-supine: not assessed ? Sit-stand: SBA? Stand-sit: SBA ? Bed-Chair: SBA ? Chair-bed: SBA Gait Training ([id number]): Direct one-on-one instruction and skilled instruction in: [] employing an assistive device [] modified weight-bearing status [x] movement sequencing [x] turning and movement with proper form [x] Provided verbal cues for equipment management and technique [] Provided instruction in gait pattern [] Patient education regarding pacing and breathing techniques to maximize activity tolerance? GAIT? Assistive Device: FWW? Weight bearing: Full Assist: SBA? Distance:? 300 feet ? Deviation: reduced step height L>R, antalgic pattern ? STAIRS: Ascends and descends 3 four inch steps and 2 six inch steps with bilateral railings. ? Therapeutic Exercises ([id number]): Direct one-on-one instruction in therapeutic exercises to develop strength, endurance, range of motion and flexibility. ? Exercises: ankle pumps glute sets LAQ's heel slides seated march ? Provided skilled instruction in proper exercise performance Provided skilled manual cues to facilitate proper muscle recruitment and/or form throughout including cues for pacing and appropriate muscle activation, facilitation of full pain free range of motion, and education regarding the benefits of each exercise. ASSESSMENT:? Patient tolerates therapy well, no c/o increased pain, no report of dyspnea PLAN: Continue global strengthening per plan of care until patient is medically cleared for discharge. TREATMENT CODE/TIME: 36 minutes beginning at 13:51
[2023-04-19] MEDS: Fluconazole 150 MG TAB PO (17:19)
[2023-04-19 19:45] VITALS: BP 98/60; PULSE 74; RESP 16; TEMP 36.4; O2SAT 99
[2023-04-19 23:35] VITALS: BP 98/60; PULSE 76; RESP 16; TEMP 36.4; O2SAT 96
[2023-04-20] MEDS: Loratidine 10 MG TAB PO (05:53)
[2023-04-20 05:54] VITALS: BP 109/68; PULSE 68; RESP 16; O2SAT 94
[2023-04-20] MEDS: Carvedilol 12.5 MG TAB PO (08:49)
[2023-04-20] MEDS: Acetaminophen 500 MG TAB 1000 MG PO (08:49)
[2023-04-20] MEDS: metFORMIN 500 MG TAB 1000 MG PO (08:49)
[2023-04-20] MEDS: Spironolactone 25 MG TAB PO (08:49)
[2023-04-20] MEDS: Pantoprazole 40 MG TABCR PO (08:49)
[2023-04-20] MEDS: Aspirin E.C. 81 MG TABEC PO (08:49)
[2023-04-20] MEDS: Amitriptyline 50 MG TAB PO (08:50)
[2023-04-20] MEDS: Lisinopril 5 MG TAB PO (08:50)
[2023-04-20] MEDS: Gabapentin 600 MG TAB PO (08:50)
[2023-04-20] MEDS: Atorvastatin 10 MG TAB PO (08:50)
[2023-04-20] MEDS: Lactobacillus Acidophilus CAP 1 CAP PO (08:50)
[2023-04-20] MEDS: Celecoxib 200 MG CAP PO (08:50)
[2023-04-20] MEDS: Insulin Glargine 300 UNITS/3 ML PEN 17 UNITS SC (08:52)
--- NOTE | 2023-04-20 10:22 | PTTR_ITS ---
Date of service: 04/20/23 Time of Service: 09:30 PT Notes Visit Reasons: OA L HIP Inpatient Physical Therapy Treatment Note [facility] Date: 04/20/23 PRECAUTIONS: Fall, standard, activity as tolerated, WBAT LLE with AD SUBJECTIVE: Patient reports some pain today, not in hip joint, feels like muscle knots, reports that it is pain she is used to because she waited 30 years to get this joint fixed. OBJECTIVE: Patient sitting up in recliner, agreeable to therapy ? PAIN: Yes, left quad area. Tolerable. BRYAN Woods notified and patient requests a half dose of pain meds VITALS: monitored by nursing staff ? BED MOBILITY/TRANSFERS? Rolling L/R: modified independent with side rail. Patient does have single side rail at home. Supine-sit: Modified independent with side rail. Patient does have single side rail at home. ? Sit-supine: independent ? Sit-stand: independent from standard height chair. Patient does have lift chair at home which she reports she uses only on occasion, but mostly tries to force herself to push up to stand independently? Stand-sit: independent ? Bed-Chair: independent with FWW ? Chair-bed: Independent with FWW Gait Training ([id number]): Direct one-on-one instruction and skilled instruction in: [] employing an assistive device [] modified weight-bearing status [x] movement sequencing [] turning and movement with proper form [] Provided verbal cues for equipment management and technique [x] Provided instruction in gait pattern [x] Patient education regarding pacing and breathing techniques to maximize activity tolerance? GAIT? Assistive Device: FWW ? Weight bearing: WBAT LLE Assist: SBA out of an abundance of caution on flat ground, CGA on stairs? Distance:? 150 feet ? Deviation: Decreased lily, slight antalgic gait pattern which improves as patient ambulates further. ? STAIRS: ascends and descends 5 stairs with single rail and SPC, which she states is what she uses at home. Coached on ascending leading with non-surgical leg, descending leading with surgical leg. Patient reports some concern that she is going to get mixed up, but then reports that this is how she has been doing stairs for a long time pre-surgery because it's the only way she could manage. ? Therapeutic Exercises ([id number]): Direct one-on-one instruction in therapeutic exercises to develop strength, endurance, range of motion and flexibility. ? Exercises: 3x10 of each of the following: * ankle pumps * heel slides * long arc quads * Glute sets * seated marching only 1x10 due to increasing pain in LLE. Encouraged patient to try for at least one more set later today, but also educated patient that it's ok to work up to 3x10 if it's too painful right now, it may not be so painful in 3-4 days. ? Provided skilled instruction in proper exercise performance Provided skilled manual cues to facilitate proper muscle recruitment and/or form: Facilitated pain free movement during heel slides, full extension during long arc quads, appropriate activation and timing during glute sets for maximum benefit ASSESSMENT:? patient appears in good spirits, agreeable to going home PLAN: Conitnue progression of plan of care until patient is medically cleared for discharge. TREATMENT CODE/TIME: 50minutes beginning at 9:30
[2023-04-20] MEDS: oxyCODONE 5 MG TAB PO (10:25)
--- NOTE | 2023-04-20 10:44 | CMDISCH_ITS ---
Date of service: 04/20/23 Time of Service: 10:44 LACE Index Scoring Tool Questions: Length of Stay (in days): 1 Was the patient admitted via the E.D.?: No Comorbidities: Diabetes w/o Complication E.D. Visits: 1 Answers: Total Score: 3 Risk of Readmission: Low Risk Care Management Discharge Plan Reason for Hospitalization: OA L Hip Discharge Plan: Sakshi is discharged home via [facility] private vehicle. She will follow up with community providers and her discharge plan of care as instructed. New [facility] PT services are ordered. Patient/Family Education Needs: Review discharge instructions, limitations, medications and plan to follow up with community providers. Discuss ask me three and goals of self care. Services Needed at Discharge: Halfway Facility (New [facility] PT)
--- NOTE | 2023-04-23 09:10 | INDS_ITS ---
PT Notes Visit Reasons: OA L HIP Physical Therapy Inpatient Discharge Summary Dates of Service: 04/19/2023 - 04/20/23 Date: 04/23/23 Referring Doctor: JETT Acosta PT Orders: PT CONSULT: S/P Ortho surgery Precautions: Fall. Standard. WBAT on left LE with AD This document serves as a summary of care. No PT services were provided on this date. Patient Profile/Admitting Diagnosis: Blossom is a 62-year-old female with degenerative joint disease of the left hip and is status post left anterior total hip arthroplasty. Patient was seen for 3 sessions of PT intervention over the course of 2 days. They were able to demonstrate safety and mobility sufficient to allow for safe return home with PT. PMHX: All Active Problems?(Updated 04/06/23 @ 22:22 by Hossein Turner MD) Lateral epicondylitis of right elbow (Acute) Hematuria (Acute) Recurrent UTI (Chronic) Flank pain (Acute) Cystocele (Acute 04/13/15) Primary osteoarthritis of both knees (Chronic 07/26/15) Synvisc injections for many years Most recent Synvisc injections: 06/05/2022; 12/02/2021; 12/11/22 Incarcerated incisional hernia (Acute) Hyperglycemia (Chronic) Lactic acid acidosis (Acute) Renal insufficiency (Chronic) Leukocytosis (leucocytosis) (Acute) Morbid obesity (Chronic) Hydronephrosis (Acute) Diabetes (Chronic) Right rotator cuff tendinitis (Acute) Steroid injection: 02/07/2021; 04/14/2019Breast pain, left (Acute) 09/2019.? Physical exam unremarkable.? No additional testing ordered. Thank tendinitis of left elbow (Acute) Gross hematuria (Acute) Diarrhea (Acute) UTI (urinary tract infection) (Acute) Vaginal dryness, menopausal (Acute) Osteoarthritis of left hip (Acute) Peripheral neuropathy (Acute) Thoracic back sprain (Acute) Medical History? Acute stress disorder Anemia Anxiety Bile acid malabsorption syndrome CAD (coronary artery disease) Calcium nephrolithiasis Cardiomyopathy Chronic leg pain Chronic lower back pain Chronic pain Cirrhosis of liver Congenital ureterovesical obstruction Congestive heart failure Degenerative joint disease Depression Diabetes mellitus Diarrhea Essential hypertension Former smoker quit smoking 07/23/16 Herpes simplex History of palpitations Hyperparathyroidism Hypertension Hypomagnesemia Incisional hernia Kidney stone Neuropathy Obsessive compulsive disorder Obstructive nephropathy Osteoarthritis of hips, bilateral Osteoma Other chromoabnormalities of urine Plantar fasciitis PTSD (post-traumatic stress disorder) Sarcoidosis Sleep apnea Thyroid nodule Urinary incontinence Urinary incontinence, mixed Vaginal wall prolapse Vaginitis Vertigo Surgical History? Abdominal hysterectomy Cholecystectomy Fracture, Open Treatment Lithotripsy Oophrectomy, Both Open Carpal Tunnel release Tonsillectomy and adenoidectomy Social History/Home Situation: Lives alone in a private home with 5 steps to enter with rails on both sides. Modified independent indoors and outdoors using 4 wheeled walker. Uses cane on one side when navigating the stairs. Equipment Owned/DME: 4WW, SPC Subjective: none Objective: ROM: Right Lower Extremity: Hip flexion WFL. Hip abduction WFL. Knee flexion WFL. Ankle dorsiflexion WFL. Ankle plantarflexion WFL. Left Lower Extremity: Hip flexion lacks the last 25% of AROM. Hip abduction WFL. Knee flexion WFL. Ankle dorsiflexion WFL. Ankle plantarflexion WFL. Strength: Right Lower Extremity: Hip flexors 4/5. Hip abductors 4/5. Knee flexors 4/5. Knee extensors 4/5. Ankle dorsiflexors 4/5. Ankle plantarflexors 4/5. Left Lower Extremity: Hip flexors 3-/5. Hip abductors 4-/5. Knee flexors 4-/5. Knee extensors 4-/5. Ankle dorsiflexors 4/5. Ankle plantarflexors 4/5. ?Sit-supine: independent?Sit-stand: independent from standard height chair. Patient does have lift chair at home which she reports she uses only on occasion, but mostly tries to force herself to push up to stand independently?Stand-sit: independent ?Bed-Chair: independent with FWW ?Chair-bed: Independent with FWW ? GAIT?Assistive Device: FWW ?Weight bearing: WBAT LLE ?Assist: SBA out of an abundance of caution on flat ground, CGA on stairs?Distance:? up to 300 feet ?Deviation: Decreased lily, slight antalgic gait pattern which improves as patient ambulates further.?STAIRS: ascends and descends 5 stairs with single rail and SPC, which she states is what she uses at home. Coached on ascending leading with non-surgical leg, descending leading with surgical leg. Patient reports some concern that she is going to get mixed up, but then reports that this is how she has been doing stairs for a long time pre-surgery because it's the only way she could manage.? Balance: Static Sitting: Normal Dynamic Sitting: Normal Static Standing: Fair Dynamic Standing: Fair Assessment: Blossom is a 62-year-old female with degenerative joint disease of the left hip and is status post left anterior total hip arthroplasty. Patient was seen for 3 sessions of PT intervention over the course of 2 days. They were able to demonstrate safety and mobility sufficient to allow for safe return home with PT. Goals: Goals X1 week 1. Supine-Sit independent (MET) 2. Sit-Supine independent (MET) 3. Sit-Stand independent(MET) 4. Stand-Sit independent with FWW (MET) 5. Bed-Chair independent with FWW(MET) 6. Chair-Bed independent with FWW(MET) 7. Independent gait on level surface with use of FWW for at least 300 feet without report of pain nor dyspnea(MET) 8. Independent stair negotiation while holding onto B rails for at least 5 steps without report of pain nor dyspnea(MET) 9. Independent with home exercise program (MET) 10. Good static and dynamic standing balance/tolerance (Progressing Toward) Plan of Care/Treatment Plan: D/C from PT in acute care setting DISCHARGE RECOMMENDATIONS: [X] Home with HH PT TREATMENT CODE/TIME: none Thank you for the opportunity to participate in the care of this patient. Concha Marion PT, DPT [facility] [place], [place]
== END 2023-04-20 11:29 | disposition home or self-care (01) ==
LOC: MS 04-19 08:39 → SUR 04-19 16:39 → MS 04-19 16:39
PROVIDERS: Admitting Provider Student in an Organized Health Care Education/Training Program; PCP Family Medicine; Visit Provider Student in an Organized Health Care Education/Training Program
PROC: (CPT 27130; principal; 2023-04-18 16:15)
DX: M16.12 Unilateral primary osteoarthritis, left hip (principal); M96.810 Intraoperative hemorrhage and hematoma of a musculoskeletal structure complicating a musculoskeletal system procedure; Z79.4 Long term (current) use of insulin; Z87.440 Personal history of urinary (tract) infections; M17.0 Bilateral primary osteoarthritis of knee; E66.01 Morbid (severe) obesity due to excess calories; Z68.42 Body mass index [BMI] 45.0-49.9, adult; E11.42 Type 2 diabetes mellitus with diabetic polyneuropathy; D64.9 Anemia, unspecified; F41.9 Anxiety disorder, unspecified; I25.10 Atherosclerotic heart disease of native coronary artery without angina pectoris; G89.29 Other chronic pain; M54.50 Low back pain, unspecified; K74.60 Unspecified cirrhosis of liver; I42.9 Cardiomyopathy, unspecified; F32.A Depression, unspecified; I50.9 Heart failure, unspecified; I11.0 Hypertensive heart disease with heart failure
CPT/HCPCS: 27130; 20985; C1776; 36415; 36416; 80048; 82962; 96365; 96367; 96372; 97110; 97116; 97162; 97530; 73501; 85014; 85018; G0378; J0690; J1100; J2001; J2250; J2371; J2405; J3010

== ENCOUNTER 2023-05-04 11:57 | Outpatient (CLI) | payer MEDICARE, SELFPAY ==
--- NOTE | 2023-05-04 11:22 | DI.RAD_ITS ---
Exam(s) XR HIP LT COMPLETE AP PELVIS EXAM: XR HIP LT COMPLETE AP PELVIS INDICATION: 1ST POST OP S/P L WILMA. COMPARISON: CR XR HIP LT COMPLETE AP PELVIS from 02/27/2023 XA XR HIP LT IN OR from 04/18/2023 TECHNIQUE: 2D digital imaging was performed. Three views. FINDINGS: There has been no change in the alignment of the left hip prosthesis. There are no abnormal surroun ding lucencies. Moderate degenerative changes are noted in the right hip with significant surrounding spurring at the margin of the femoral head. IMPRESSION: DATA REPOSITORY: RADIATION DOSE DELIVERED:
== END 2023-05-04 11:58 | disposition home or self-care (01) ==
LOC: DIORS 11:57
PROVIDERS: PCP Family Medicine; Referring Provider Family Medicine; Visit Provider Student in an Organized Health Care Education/Training Program
DX: Z96.642 Presence of left artificial hip joint (principal); Z47.1 Aftercare following joint replacement surgery
CPT/HCPCS: 73502

== ENCOUNTER 2023-05-14 16:10 | Outpatient (REF) | payer MEDICARE, SELFPAY ==
[2023-05-14 21:24] LABS: HCT 29.3 % (36.0-46.0); HGB 9.2 g/dL (11.2-15.7); MCH 31.2 pg (27.0-33.0); MCHC 31.4 % (32.0-36.0); MCV 99 fL (80-95); MPV 10.4 fL (8.0-11.0); Platelet Count 165 10^3/uL (130-400); RBC 2.95 10^6/uL (3.93-5.22); RDW 13.4 % (11.7-14.6); RDW-SD 48.6 fL; WBC 7.01 10^3/uL (4.4-10.8)
[2023-05-14 21:38] LABS: ALT 15 U/L (14-59); AST 23 U/L (15-37); Albumin 3.3 g/dL (3.4-5.0); Alkaline Phosphatase 135 U/L (46-116); Anion Gap 11.7 mmol/L (3-11); BUN 14 mg/dL (7-18); CO2 22.3 mmol/L (21.0-32.0); Calcium 9.5 mg/dL (8.5-10.1); Chloride 107 mmol/L (98-107); Glucose 142 mg/dL (74-106); Potassium 4.8 mmol/L (3.5-5.1); Sodium 141 mmol/L (136-145); Total Protein 7.1 g/dL (6.4-8.2)
[2023-05-16 16:59] LABS: Iron 74 ug/dL (50-170)
== END 2023-05-14 16:11 | disposition home or self-care (01) ==
LOC: NCHCN 16:10
PROVIDERS: PCP Family Medicine; Visit Provider Family Medicine
DX: R31.9 Hematuria, unspecified (principal); I10 Essential (primary) hypertension; E66.01 Morbid (severe) obesity due to excess calories; I50.9 Heart failure, unspecified; M79.606 Pain in leg, unspecified; D64.9 Anemia, unspecified
CPT/HCPCS: 80053; 85027; 87077; 83540; 87086; 87186

== ENCOUNTER 2023-05-18 08:58 | Emergency (ER) | payer MEDICARE, SELFPAY ==
[2023-05-18 09:25] VITALS: BP 154/81; PULSE 72; RESP 20; TEMP 36.3; O2SAT 95
--- NOTE | 2023-05-18 09:30 | DI.CT_ITS ---
Exam(s) CT RENAL COLIC WO EXAM: CT RENAL COLIC WOz CLINICAL HISTORY: right flank pain. TECHNIQUE: Imaging Protocol: Axial computed tomography images with coronal and sagittal reformatted images were created and reviewed. CONTRAST MATERIAL: Noncontrast COMPARISON: CT CT ABDOMEN PELVIS W from 07/10/2022 FINDINGS: ABDOMEN: Lung Bases: Normal where visualized. Liver: Liver is again noted to be enlarged and shows nodular contour. Hepatic steatosis also present . Splenomegaly noted, stable from prior. Findings are suspicious for cirrhosis and portal hypertens ion. No measurable mass. Gallbladder and biliary tract: Status post cholecystectomy. No radiodense calculus or dilation. Pancreas: Normal density, no calcifications or inflammatory process. Spleen: Normal. Kidneys: Normal size, contour and axis. Multiple adjacent small stones in the upper to mid pole righ t collecting system. Additional stone at the lower pole of the right kidney. Mild prominence of rig ht renal pelvis but no obstructing stone. Findings are less prominent when compared with the prior e xam. Additional stone noted lower pole left kidney. No masses seen. Adrenal glands: No masses seen. Abdominal Aorta: Abdominal portion non-dilated. Soft tissues: A midline lower abdominal wall hernia again noted to contain cecum, distal ileum and ap pendix. Suture material at cecum. PELVIS: Bladder: Symmetric distention, no gross wall thickening. No evidence of stones.No visible mass. Bowel: No obstruction or bowel wall thickening. Reproductive: Status post hysterectomy peer Peritoneal cavity: No ascites, collection or mesenteric inflammatory response. Bones: Left hip prosthesis causes artifact in low in the pelvis. Partially obscures visualization of the bladder. Severe degenerative changes present in right hip. Degenerative changes also present i n lumbar spine. IMPRESSION: Bilateral left nephrolithiasis, right greater than left.. No ureteral or bladder calculi. No hydron ephrosis. Hepatosplenomegaly. RADIATION DOSE DELIVERED: Total DLP DATA REPOSITORY: All CT scans at this facility are submitted to the National Radiology Data Registry (NRDR) Dose Index Registry (DIR) with the [employer] (A[employer]). RADIATION OPTIMIZATION: All CT scans at this facility use at least one of these dose optimization te chniques: automated exposure control; mA and/or kV adjustment per patient size (includes targeted exa ms where dose is matched to clinical indication); or iterative reconstruction.
[2023-05-18 09:41] LABS: Bilirubin Negative (Negative); Blood Small (Negative); Clarity Sl Cloudy (Clear); Glucose Negative (Negative); Ketones Negative (Negative); Leukocyte Esterase Moderate (Negative); Nitrite Negative (Negative); Specific Gravity 1.015 (1.005-1.025); Urobilinogen 0.2 mg/dL (Up to 0.2); pH 5.5 (5-8)
[2023-05-18 09:49] LABS: Bacteria Few HPF (Negative); C & S Indicated? No/Sq. Contamination; Casts Negative LPF (Negative); Crystals Negative HPF (Negative); Epithelial Cells Moderate HPF (Negative); Mucus Negative (Negative)
[2023-05-18 10:19] LABS: Abs Immature Grans 0.02 10^3/uL (0.0-0.06); Absolute Basophil Count 0.04 10^3/uL (0.0-0.2); Absolute Eosinophil Count 0.52 10^3/uL (0.0-0.7); Absolute Lymphocyte Count 3.23 10^3/uL (1.2-3.4); Absolute Monocyte Count 0.94 10^3/uL (0.1-0.8); Absolute Neutrophil Count 4.28 10^3/uL (1.2-6.7); Basophils % 0.4; Eosinophils % 5.8; HCT 31.5 % (36.0-46.0); Immature Grans % 0.2; Lymphocytes % 35.8; MCH 31.2 pg (27.0-33.0); MCHC 31.7 % (32.0-36.0); MCV 98 fL (80-95); MPV 10.1 fL (8.0-11.0); Monocytes % 10.4; Neutrophils % 47.4; Platelet Count 200 10^3/uL (130-400); RBC 3.21 10^6/uL (3.93-5.22); RDW 13.1 % (11.7-14.6); RDW-SD 46.9 fL; WBC 9.03 10^3/uL (4.4-10.8)
--- NOTE | 2023-05-18 10:34 | W.ED.GENAD ---
Discharge Plan Disposition Patient Disposition: Home Condition: Good Discharge Details Chief Complaint: FlankPain Clinical Impression: Flank pain, Recurrent UTI, Bilateral kidney stones Primary Care Provider: Trev Burr ED Provider: Amanda Toro Home Meds and New Rx's Prescriptions: No Action multivitamin Tablet 1 tab PO DAILY insulin glargine [Basaglar KwikPen U-100 Insulin] 100 unit/mL (3 mL) insulin pen 17 unit subcut BID vitamin B complex [B Complex-Vitamin B12] Tablet 1 tab PO DAILY estradiol [Estrace] 0.01 % (0.1 mg/gram) cream 1 appful vaginal DAILY Qty: 42.5 4RF Rx Instructions: daily for 2 weeks then twice weekly Ozempic 1 mg/dose (2 mg/1.5 mL) pen injector 2 mg subcut QWEEK acyclovir 5 % cream 1 applic TP ONCE PRN diclofenac sodium [Voltaren] 1 % gel 2 gm TP QID PRN amitriptyline 50 mg tablet 50 mg PO DAILY nitroglycerin 0.4 MG tablet, sublingual 0.4 mg Sublingual PRN Patient Comments: 05/04/14: Pt carries NTG but has never had to use it. PG insulin aspart U-100 [Novolog FlexPen U-100 Insulin] 100 unit/mL (3 mL) insulin pen 15 unit subcut TID Lactobacillus acidophilus Tablet,Chewable 1 tab PO DAILY gabapentin 600 mg tablet 600 mg PO QID valacyclovir 1 gram tablet 1,000 mg PO DAILY clotrimazole-betamethasone 1-0.05 % cream 1 applic topical BID 10 Days Qty: 15 2RF atorvastatin 10 mg tablet 10 mg PO DAILY levalbuterol tartrate 45 mcg/actuation HFA aerosol inhaler 2 inh inhalation Q6H spironolactone 25 mg tablet 25 mg PO DAILY Ozempic 0.25 mg or 0.5 mg (2 mg/3 mL) pen injector 0.25 mg subcut QWEEK Rx Instructions: for 4 weeks metformin 1,000 mg tablet 1,000 mg PO BID oxycodone 5 mg tablet 5 mg PO Q4H MDD 6 tabs PRN (Reason: pain) Qty: 20 0RF celecoxib 200 mg capsule 200 mg PO BID Qty: 60 0RF aspirin 81 mg tablet,delayed release (DR/EC) 81 mg PO BID Qty: 60 0RF acetaminophen 500 mg tablet 1,000 mg PO TID Qty: 90 3RF pantoprazole 40 mg tablet,delayed release (DR/EC) 40 mg PO DAILY Qty: 30 0RF loratadine 10 mg Tablet 10 mg PO DAILY lisinopril 5 mg Tablet 5 mg PO DAILY carvedilol 3.125 mg tablet 12.5 mg PO BID Discharge Instructions Instructions: Urinary Tract Infection in Women (ED), Flank Pain (ED) Additional Instructions: Continue taking antibiotics as prescribed by primary care. Recommend repeat urinalysis after completion of antibiotics to ensure resolution of infection. Return for any worsening symptoms. Referrals: Trev Burr MD [Primary Care Provider] - Discharge Data Discharge Physician: Amanda Toro Medical Decision Making 62-year-old female presents for evaluation of right flank pain which kept her up during the night. She is currently being treated for UTI with Cipro. Will check CT to evaluate for signs of kidney infection or kidney stones. Patient's urinalysis today shows leukocytes and blood. I did review patient's urine microscopy from earlier in the week. This does show that her infection is sensitive to Cipro. Laboratory studies otherwise unremarkable today. CT of abdomen pelvis shows bilateral stones without any signs of hydronephrosis or infection. Patient is reassured by these findings. She states that she did have a back strain in early March and perhaps she pulled a muscle in her back. She states that she has plenty of pain medication at home. She has an appointment with her urologist in July. She is reassured by her findings today. She understands that she should develop any fevers, worsening pain, inability to tolerate p.o. that she should return immediately for reevaluation. HPI General Date/Time Provider Initiated Documentation: 05/18/23 09:20. HPI Narrative: 62-year-old female presents for evaluation of right flank pain. Patient has history of urinary tract infection as well as kidney stones. She states that 1 month ago she was hospitalized for hip replacement. She states that she was feeling great after the hip replacement and had been much more active than usual. She does started noting some swelling in her lower extremities after and saw primary care. They felt this was likely secondary to too much activity and have told her to make sure she is elevating her legs more. She states that that swelling has come down. During the week she developed some urinary symptoms. She does have frequent urinary tract infections. She was seen by primary care and had a urine sample analyzed. She was started on Cipro. She states that during her admission for her hip surgery she passed 6 tiny kidney stones in her urine. She passed 2 after returning home. She believes that she is passing another kidney stone now. She started having some increased pain in her right flank which made it difficult to sleep during the night. She denies any fevers or chills. No nausea or vomiting. No numbness or tingling to her extremities. Related Data Home Medications Medication Instructions Recorded Confirmed nitroglycerin 0.4 mg sublingual 0.4 mg sublingual PRN 11/07/12 05/04/23 tablet loratadine 10 mg tablet 10 mg PO DAILY 07/09/18 05/04/23 lisinopril 5 mg tablet 5 mg PO DAILY 07/22/18 05/04/23 acyclovir 5 % topical cream 1 applic topical ONCE PRN 12/19/18 05/04/23 diclofenac sodium 1 % topical gel 2 gm topical QID PRN 12/19/18 05/04/23 (Voltaren) carvedilol 3.125 mg tablet 12.5 mg PO BID 04/16/20 05/04/23 Lactobacillus acidophilus 1 tab PO DAILY 10/13/20 05/04/23 gabapentin 600 mg tablet 600 mg PO QID 10/13/20 05/04/23 insulin aspart U-100 100 unit/mL 15 unit subcut TID 10/13/20 05/04/23 (3 mL) subcutaneous pen (Novolog FlexPen U-100 Insulin aspart) valacyclovir 1 gram tablet 1,000 mg PO DAILY 10/13/20 05/04/23 multivitamin 1 tab PO DAILY 11/16/20 05/04/23 clotrimazole-betamethasone 1 1 applic topical BID 10 days #15 01/28/21 05/04/23 %-0.05 % topical cream grams amitriptyline 50 mg tablet 50 mg PO DAILY 12/02/21 05/04/23 estradiol 0.01% (0.1 mg/gram) 1 appful vaginal DAILY #42.5 grams 10/10/22 05/04/23 vaginal cream (Estrace) semaglutide 1 mg/dose (2 mg/1.5 2 mg subcut QWEEK 12/11/22 05/04/23 mL) subcutaneous pen injector (Ozempic) vitamin B complex (B 1 tab PO DAILY 12/11/22 05/04/23 Complex-Vitamin B12 tablet) atorvastatin 10 mg tablet 10 mg PO DAILY 12/28/22 05/04/23 levalbuterol tartrate 45 2 inh inhalation Q6H 12/28/22 05/04/23 mcg/actuation aerosol inhaler metformin 1,000 mg tablet 1,000 mg PO BID 12/28/22 05/04/23 semaglutide 0.25 mg or 0.5 mg (2 0.25 mg subcut QWEEK 12/28/22 05/04/23 mg/3 mL) subcutaneous pen injector (Ozempic) spironolactone 25 mg tablet 25 mg PO DAILY 12/28/22 05/04/23 insulin glargine 100 unit/mL (3 17 unit subcut BID 04/06/23 05/04/23 mL) subcutaneous pen (Mohiniaglshan Webb U-100 Insulin) acetaminophen 500 mg tablet 1,000 mg (2 x 500 mg) PO TID #90 04/20/23 05/04/23 tabs aspirin 81 mg tablet,delayed 81 mg PO BID #60 tabs 04/20/23 05/04/23 release celecoxib 200 mg capsule 200 mg PO BID #60 caps 04/20/23 05/04/23 pantoprazole 40 mg tablet,delayed 40 mg PO DAILY #30 tabs 04/20/23 05/04/23 release oxycodone 5 mg tablet 5 mg PO Q4H PRN pain #20 tabs 04/26/23 05/04/23 Previous Rx's Medication Instructions Recorded clotrimazole-betamethasone 1 1 applic topical BID 10 days #15 01/28/21 %-0.05 % topical cream grams estradiol 0.01% (0.1 mg/gram) 1 appful vaginal DAILY #42.5 grams 10/10/22 vaginal cream (Estrace) acetaminophen 500 mg tablet 1,000 mg (2 x 500 mg) PO TID #90 04/20/23 tabs aspirin 81 mg tablet,delayed 81 mg PO BID #60 tabs 04/20/23 release celecoxib 200 mg capsule 200 mg PO BID #60 caps 04/20/23 pantoprazole 40 mg tablet,delayed 40 mg PO DAILY #30 tabs 04/20/23 release oxycodone 5 mg tablet 5 mg PO Q4H PRN pain #20 tabs 04/26/23 Allergies Allergy/AdvReac Type Severity Reaction Status Date / Time erythromycin base Allergy Severe hives Verified 05/04/23 10:53 Sulfa (Sulfonamide Allergy Severe hives Verified 05/04/23 10:53 Antibiotics) sulfamethoxazole Allergy Verified 05/04/23 10:53 [From Bactrim] trimethoprim [From Bactrim] Allergy Verified 05/04/23 10:53 magnesium AdvReac Severe Diarrhea Verified 05/04/23 10:53 nitrofurantoin AdvReac Severe depression Verified 05/04/23 10:53 [From Macrobid] clomipramine [From Anafranil] AdvReac Intermediate Other (See Verified 05/04/23 10:53 Comment) ketamine AdvReac Intermediate hallucinati Verified 05/04/23 10:53 ons General Stated Complaint: FlankPain GROVER: 3 Review of Systems Narrative: Remainder review of systems otherwise negative except as in the HPI x10. PFSH All Active Problems (Updated 05/18/23 @ 11:50 by Amanda Toro MD) Bilateral kidney stones (Acute) S/P total left hip arthroplasty (Acute 04/18/23) Lateral epicondylitis of right elbow (Acute) Hematuria (Acute) Recurrent UTI (Chronic) Flank pain (Acute) Cystocele (Acute 04/13/15) Primary osteoarthritis of both knees (Chronic 07/26/15) Synvisc injections for many years Most recent Synvisc injections: 06/05/2022; 12/02/2021; 12/11/22 Incarcerated incisional hernia (Acute) Hyperglycemia (Chronic) Lactic acid acidosis (Acute) Renal insufficiency (Chronic) Leukocytosis (leucocytosis) (Acute) Morbid obesity (Chronic) Hydronephrosis (Acute) Diabetes (Chronic) Right rotator cuff tendinitis (Acute) Steroid injection: 02/07/2021; 04/14/2019 Breast pain, left (Acute) 09/2019. Physical exam unremarkable. No additional testing ordered. Tendinitis of left elbow (Acute) Gross hematuria (Acute) Diarrhea (Acute) UTI (urinary tract infection) (Acute) Vaginal dryness, menopausal (Acute) Osteoarthritis of left hip (Acute) Peripheral neuropathy (Acute) Medical History Osteoarthritis of hips, bilateral Calcium nephrolithiasis Bile acid malabsorption syndrome History of palpitations CAD (coronary artery disease) Vertigo Chronic lower back pain Urinary incontinence Osteoma Hypertension Neuropathy Chronic pain Degenerative joint disease Chronic leg pain Hypomagnesemia Hyperparathyroidism Plantar fasciitis Thyroid nodule Obstructive nephropathy Incisional hernia Herpes simplex Diarrhea Vaginitis Acute stress disorder PTSD (post-traumatic stress disorder) Cirrhosis of liver Other chromoabnormalities of urine Former smoker quit smoking 07/23/16 Depression Cardiomyopathy Urinary incontinence, mixed Obsessive compulsive disorder Vaginal wall prolapse Congestive heart failure Anemia Sleep apnea Sarcoidosis Anxiety Congenital ureterovesical obstruction Diabetes mellitus Kidney stone Essential hypertension Surgical History Tonsillectomy and adenoidectomy Open Carpal Tunnel release Oophrectomy, Both Lithotripsy Abdominal hysterectomy Fracture, Open Treatment Cholecystectomy Family History Mother Diabetes Heart disease Father Personal history of malignant neoplasm Lung Cancer Sister Personal history of malignant neoplasm Thyroid Cancer Social History Smoking/Tobacco Use Status: Former Tobacco Use Quit Date: 07/23/16 Smoking risk assessment performed?: Yes Alcohol Intake: current Alcohol Intake frequency: holidays/special occasions only Drug use: Rarely Substance use type: marijuana Details: edible Housing: apartment Current gender identity: female Do you feel safe at home: Yes Additional Social history: lives alone- will be stay 1-3 days in house here Exam Narrative Exam Narrative: General: non-toxic, no respiratory distress, comfortable HEENT: normocephalic, atraumatic, lids and lashes normal, PERRL, EOMI, anicteric sclera, no conjunctival injection, moist oral mucosa Card: regular rate and rhythm, S1S2, no murmurs, rubs, or gallops Lungs: good air entry, clear to auscultation bilaterally. no wheezes, rales, rhonchi, or retractions Abd: soft, non-tender, non-distended, normal bowel sounds, no rebound or guarding, no peritoneal signs, no CVAT Musculoskeletal: full range of motion of arms and legs, no tenderness to palpation. no clubbing, cyanosis, or edema Back exam: no paraspinal tenderness, no mid-line tenderness, normal strength & sensation, negative SLR's, DTR's 2+ bilaterally Neurologic: appropriate for age, strength normal Psych: alert and oriented Skin: no petechiae, no lesions, warm and dry Course Vital Signs Vital signs: Vital Signs Temperature 36.3 C L 05/18/23 09:25 Pulse 72 05/18/23 09:25 Respiratory Rate 20 05/18/23 09:25 Blood Pressure 154/81 H 05/18/23 09:25 Pulse Oximetry 95 05/18/23 09:25 Temperature 36.3 C L 05/18/23 09:25 Temperature Source Tympanic 05/18/23 09:25 Pulse 72 05/18/23 09:25 Respiratory Rate 20 05/18/23 09:25 Blood Pressure 154/81 H 05/18/23 09:25 Blood Pressure Position Supine 05/18/23 09:25 Pulse Oximetry 95 05/18/23 09:25 Oxygen Delivery Method Room Air 05/18/23 09:25 Oxygen Flow Rate 0 05/18/23 09:25 Lab/Test Results Lab/Test Results: Laboratory Tests Range/Units 05/18/23 05/18/23 09:24 10:14 WBC (4.4-10.8) 10^3/uL 9.03 RBC (3.93-5.22) 10^6/uL 3.21 L Hgb (11.2-15.7) g/dL 10.0 L Hct (36.0-46.0) % 31.5 L MCV (80-95) fL 98 H MCH (27.0-33.0) pg 31.2 MCHC (32.0-36.0) % 31.7 L RDW (11.7-14.6) % 13.1 Plt Count (130-400) 10^3/uL 200 MPV (8.0-11.0) fL 10.1 Immature Gran % 0.2 Neutrophils % 47.4 Lymphocytes % 35.8 Monocytes % 10.4 Eosinophils % 5.8 Basophils % 0.4 Nucleated RBC % (0.0-0.3) % 0.0 Absolute Neutrophils (1.2-6.7) 10^3/uL 4.28 Absolute Lymphocytes (1.2-3.4) 10^3/uL 3.23 Absolute Monocytes (0.1-0.8) 10^3/uL 0.94 H Absolute Eosinophils (0.0-0.7) 10^3/uL 0.52 Absolute Basophils (0.0-0.2) 10^3/uL 0.04 Sodium Cancelled Potassium Cancelled Chloride Cancelled Carbon Dioxide Cancelled Anion Gap Cancelled BUN Cancelled Creatinine Cancelled Est GFR (CKD-EPI 2020) Cancelled Glucose Cancelled Calcium Cancelled Total Bilirubin Cancelled AST Cancelled ALT Cancelled Alkaline Phosphatase Cancelled Total Protein Cancelled Albumin Cancelled Urine Color (Yellow) Yellow Urine Clarity (Clear) Sl Cloudy Urine pH (5-8) 5.5 Ur Specific [place] (1.005-1.025) 1.015 Urine Protein (Negative) mg/dL Negative Urine Ketones (Negative) mg/dL Negative Urine Blood (Negative) Small H Urine Nitrite (Negative) Negative Urine Bilirubin (Negative) Negative Urine Urobilinogen (Up to 0.2) mg/dL 0.2 Ur Leukocyte Esterase (Negative) Moderate H Urine RBC (0-2) HPF 3-5 H Urine WBC (0-5) HPF 10-20 H Ur Epithelial Cells (Negative) HPF Moderate Urine Crystals (Negative) HPF Negative Urine Bacteria (Negative) HPF Few Urine Casts (Negative) LPF Negative Urine Mucus (Negative) Negative Ur Culture Indicated? No/Sq. Contamination Urine Glucose (Negative) mg/dL Negative
[2023-05-18 11:05] LABS: ALT 17 U/L (14-59); AST 27 U/L (15-37); Albumin 3.6 g/dL (3.4-5.0); Alkaline Phosphatase 130 U/L (46-116); BUN 14 mg/dL (7-18); Bilirubin, Total 0.7 mg/dL (0.2-1.0); Calcium 9.2 mg/dL (8.5-10.1); Chloride 103 mmol/L (98-107); Glucose 126 mg/dL (74-106); Potassium 4.2 mmol/L (3.5-5.1); Sodium 138 mmol/L (136-145); Total Protein 7.5 g/dL (6.4-8.2)
[2023-05-18 11:53] VITALS: BP 113/85; PULSE 65; RESP 14; TEMP 36.4; O2SAT 97
== END 2023-05-18 12:06 | disposition home or self-care (01) ==
PROVIDERS: Emergency Provider Emergency Medicine Emergency Medical Services; PCP Family Medicine
DX: N13.2 Hydronephrosis with renal and ureteral calculous obstruction (principal); R16.2 Hepatomegaly with splenomegaly, not elsewhere classified; N13.0 Hydronephrosis with ureteropelvic junction obstruction; I25.10 Atherosclerotic heart disease of native coronary artery without angina pectoris; I10 Essential (primary) hypertension; E11.40 Type 2 diabetes mellitus with diabetic neuropathy, unspecified; Z79.4 Long term (current) use of insulin; Z79.82 Long term (current) use of aspirin; Z87.891 Personal history of nicotine dependence
CPT/HCPCS: 36415; 80053; 99284; 74176; 81003; 81015; 85025; 99283

== ENCOUNTER → 2023-06-01 11:00 | Outpatient (BNVA) | payer MEDICARE, SELFPAY | PROVIDERS: PCP Family Medicine; Visit Provider Student in an Organized Health Care Education/Training Program | DX: Z47.1 Aftercare following joint replacement surgery (principal); M16.11 Unilateral primary osteoarthritis, right hip; Z96.642 Presence of left artificial hip joint ==

== ENCOUNTER 2023-06-12 14:36 | Outpatient (REF) | payer MEDICARE, SELFPAY ==
[2023-06-12 17:08] LABS: Bilirubin Negative (Negative); Blood Large (Negative); Clarity Turbid (Clear); Glucose Negative (Negative); Ketones Negative (Negative); Leukocyte Esterase Large (Negative); Nitrite Negative (Negative); Specific Gravity >= 1.030 (1.005-1.025); Urobilinogen 0.2 mg/dL (Up to 0.2); pH 5.5 (5-8)
[2023-06-12 17:26] LABS: Other Cells Few Yeast (Negative); RBC 20-50 HPF (0-2); WBC >50 HPF (0-5)
[2023-06-12 17:27] LABS: C & S Indicated? C&S Done As Ordered
== END 2023-06-12 14:37 | disposition home or self-care (01) ==
LOC: LBN 14:36
PROVIDERS: PCP Family Medicine; Visit Provider Urology
DX: R39.89 Other symptoms and signs involving the genitourinary system (principal); R82.998 Other abnormal findings in urine
CPT/HCPCS: 81003; 81015; 87086

== ENCOUNTER → 2023-06-20 10:50 | Outpatient (BNVA) | payer MEDICARE, SELFPAY | PROVIDERS: PCP Family Medicine; Referring Provider Family Medicine; Visit Provider Nurse Practitioner Gerontology | DX: N39.0 Urinary tract infection, site not specified (principal); R10.9 Unspecified abdominal pain; E11.9 Type 2 diabetes mellitus without complications; N20.0 Calculus of kidney | CPT/HCPCS: 81003; 99214 ==

== ENCOUNTER 2023-06-20 11:21 | Outpatient (REF) | payer MEDICARE, SELFPAY | END 2023-06-20 11:22 | disposition home or self-care (01) | LOC: LBN 11:21 | PROVIDERS: PCP Family Medicine; Visit Provider Nurse Practitioner Gerontology | DX: N20.0 Calculus of kidney (principal); R30.0 Dysuria; R82.89 Other abnormal findings on cytological and histological examination of urine | CPT/HCPCS: 87077; 87086; 87186 ==

== ENCOUNTER → 2023-06-22 11:00 | Outpatient (BNVA) | payer MEDICARE, SELFPAY | PROVIDERS: PCP Family Medicine; Visit Provider Student in an Organized Health Care Education/Training Program | DX: M17.11 Unilateral primary osteoarthritis, right knee (principal); M17.12 Unilateral primary osteoarthritis, left knee | CPT/HCPCS: 20610; J7325 ==

== ENCOUNTER 2023-06-23 04:11 | Emergency (ER) | payer MEDICARE, SELFPAY ==
[2023-06-23 04:19] VITALS: BP 142/71; PULSE 89; RESP 16; TEMP 36.3; O2SAT 96
[2023-06-23 04:36] LABS: Bilirubin Negative (Negative); Blood Moderate (Negative); Clarity Cloudy (Clear); Glucose Negative (Negative); Ketones Negative (Negative); Leukocyte Esterase Large (Negative); Nitrite Negative (Negative); Specific Gravity 1.025 (1.005-1.025); Urobilinogen 0.2 mg/dL (Up to 0.2); pH 5.5 (5-8)
[2023-06-23 04:37] VITALS: BP 142/71; PULSE 89; RESP 16; TEMP 36.3; O2SAT 96
[2023-06-23 04:42] LABS: C & S Indicated? Yes; WBC >50 HPF (0-5)
--- NOTE | 2023-06-23 04:45 | DI.CT_ITS ---
Exam(s) CT ABDOMEN PELVIS WO EXAM: CT ABDOMEN PELVIS WO CLINICAL HISTORY: right flank pain, hx of kidney stones. TECHNIQUE: Imaging Protocol: Axial computed tomography images with coronal and sagittal reformatted images were created and reviewed CONTRAST MATERIAL: Intravenous: none Oral: None COMPARISON: CT CT RENAL COLIC WO from 05/18/2023 FINDINGS: VISUALIZED LUNG BASES: No nodules nor pleural effusions evident. ABDOMEN: There is no ascites. LIVER: Liver again appears cirrhotic. No obvious focal intrahepatic mass . GALLBLADDER/BILIARY: Gallbladder again noted be surgically absent. CBD is not dilated. PANCREAS: No evidence of pancreatic mass nor dilatation of the pancreatic duct. SPLEEN: Splenomegaly again noted. ADRENALS: There are no significant adrenal masses. KIDNEYS:Bilateral nephrolithiasis again noted. Calculi are more numerous in the right kidney. There is a solitary calculus in the left kidney which is in the lower pole calyx. There is no hydronephro sis. However, the right renal pelvis and upper right ureter exhibits some surrounding fat streaking. Lower most aspect of the ureters are difficult to assess because of beam hardening artifact from le ft hip prosthesis.. ABDOMINAL AORTA: Abdominal aorta is not enlarged. LYMPH NODES: There are multiple small retroperitoneal lymph nodes again noted,. These are in the reg ion of the celiac and SMA. Difficult to determine if these are slightly enlarged lymph nodes or janet ateral vessels, related to portal venous hypertension. ABDOMINAL WALL: There is an anterior abdominal wall hernia in the pannus which is again noted and whi ch contains unobstructed bowel loops. GI: There is no evidence of bowel obstruction, free air, nor abscess. PELVIS: LYMPH NODES: There is no intrapelvic nor inguinal adenopathy. GI: No evidence of appendicitis.No evidence of sigmoid diverticulitis. URINARY BLADDER: No calculi nor obvious masses evident REPRODUCTIVE: Uterus surgically absent. No abnormal adnexal masses. OSSEOUS: Left hip prosthesis. Right hip degenerative changes. No fractures. No significant osseous lesions IMPRESSION: 1. Compared to 05/18/2023 there is again noted cirrhotic appearing liver with hepatic splenomegaly an d varices/evidence of portal venous hypertension. There is no ascites. 2. Bilateral nephrolithiasis again noted. Number of calculi are are more numerous in the right kidne y. Some streaking around the right renal pelvis noted. Correlation with urinalysis recommended rule out infection. There is no obvious obstructing calculus in either ureter although the ureterovesica l junctions are somewhat difficult to evaluate because of beam hardening artifact from the presence o f a left hip prosthesis. 3. Previous cholecystectomy and hysterectomy. RADIATION DOSE DELIVERED: Total DLP DATA REPOSITORY: All CT scans at this facility are submitted to the National Radiology Data Registry (NRDR) Dose Index Registry (DIR) with the [employer] (A[employer]). RADIATION OPTIMIZATION: All CT scans at this facility use at least one of these dose optimization te chniques: automated exposure control; mA and/or kV adjustment per patient size (includes targeted exa ms where dose is matched to clinical indication); or iterative reconstruction.
--- NOTE | 2023-06-23 04:53 | ED.GENADUL_ITS ---
Discharge Plan Disposition Condition: Stable Condition: Stable Discharge Details Chief Complaint: FlankPain Clinical Impression: UTI (urinary tract infection) Primary Care Provider: Trev Burr ED Provider: Elvin Ugalde Home Meds and New Rx's Prescriptions: New cefpodoxime 200 mg tablet 200 mg PO BID 7 Days Qty: 14 0RF Rx Instructions: must administer with a meal/food No Action multivitamin Tablet 1 tab PO DAILY insulin glargine [Basaglar KwikPen U-100 Insulin] 100 unit/mL (3 mL) insulin pen 17 unit subcut BID Patient Comments: 15 Q AM, 13 Q PM vitamin B complex [B Complex-Vitamin B12] Tablet 1 tab PO DAILY estradiol [Estrace] 0.01 % (0.1 mg/gram) cream 1 appful vaginal DAILY Qty: 42.5 4RF Rx Instructions: daily for 2 weeks then twice weekly Ozempic 1 mg/dose (2 mg/1.5 mL) pen injector 2 mg subcut QWEEK celecoxib 200 mg capsule 200 mg PO DAILY Qty: 30 1RF Rx Instructions: Take one tablet once daily for pain and inflammation acyclovir 5 % cream 1 applic TP ONCE PRN diclofenac sodium [Voltaren] 1 % gel 2 gm TP QID PRN amitriptyline 50 mg tablet 50 mg PO DAILY ferrous sulfate [Iron (ferrous sulfate)] 325 mg (65 mg iron) tablet 325 mg PO DAILY nitroglycerin 0.4 MG tablet, sublingual 0.4 mg Sublingual PRN Patient Comments: 05/04/14: Pt carries NTG but has never had to use it. PG insulin aspart U-100 [Novolog FlexPen U-100 Insulin] 100 unit/mL (3 mL) insulin pen 15 unit subcut TID gabapentin 600 mg tablet 600 mg PO QID valacyclovir 1 gram tablet 1,000 mg PO DAILY clotrimazole-betamethasone 1-0.05 % cream 1 applic topical BID 10 Days Qty: 15 2RF atorvastatin 10 mg tablet 10 mg PO DAILY levalbuterol tartrate 45 mcg/actuation HFA aerosol inhaler 2 inh inhalation Q6H spironolactone 25 mg tablet 25 mg PO DAILY Ozempic 0.25 mg or 0.5 mg (2 mg/3 mL) pen injector 0.25 mg subcut QWEEK Rx Instructions: for 4 weeks metformin 1,000 mg tablet 1,000 mg PO BID mupirocin calcium 2 % cream 1 applic topical BID Qty: 30 0RF cephalexin 500 mg capsule 500 mg PO TID Qty: 21 0RF acetaminophen 500 mg tablet 1,000 mg PO TID Qty: 90 3RF loratadine 10 mg Tablet 10 mg PO DAILY lisinopril 5 mg Tablet 5 mg PO DAILY carvedilol 3.125 mg tablet 12.5 mg PO BID Discharge Instructions Instructions: Urinary Tract Infection in Women (ED) Additional Instructions: Please follow-up close with your primary care physician. Return to the emergency department for any worsening symptoms. Medical Decision Making 62-year-old female history of recurrent UTIs, recurrent kidney stones presents with right flank pain over the past 2 days, recently diagnosed with UTI started on Keflex, afebrile nontoxic no nausea no vomiting no abdominal pain. No shortness of breath no chest pain. Evidence of UTI on UA, must also consider kidney stone. Will obtain CT abdomen pelvis Noncon. Anti-inflammatory analgesia, empiric Flomax, will adjust antibiotics to cefpodoxime for coverage. Disposition likely home with close follow-up pending CT scan. 7: 10 patient resting comfortably no acute distress. Have initiated antibiotics to cover UTI. Awaiting radiology report from CT abdomen pelvis. HPI General Date/Time Provider Initiated Documentation: 06/23/23 04:22 . HPI Narrative: 62-year-old female history of recurrent UTIs as well as recurrent kidney stones presents with right flank discomfort, recently started on Keflex for UTI, denies nausea vomiting fevers or chills. Related Data Home Medications Medication Instructions Recorded Confirmed nitroglycerin 0.4 mg sublingual 0.4 mg sublingual PRN 11/07/12 06/23/23 tablet loratadine 10 mg tablet 10 mg PO DAILY 07/09/18 06/23/23 lisinopril 5 mg tablet 5 mg PO DAILY 07/22/18 06/23/23 acyclovir 5 % topical cream 1 applic topical ONCE PRN 12/19/18 06/23/23 diclofenac sodium 1 % topical gel 2 gm topical QID PRN 12/19/18 06/23/23 (Voltaren) carvedilol 3.125 mg tablet 12.5 mg PO BID 04/16/20 06/23/23 gabapentin 600 mg tablet 600 mg PO QID 10/13/20 06/23/23 insulin aspart U-100 100 unit/mL 15 unit subcut TID 10/13/20 06/23/23 (3 mL) subcutaneous pen (Novolog FlexPen U-100 Insulin aspart) valacyclovir 1 gram tablet 1,000 mg PO DAILY 10/13/20 06/23/23 multivitamin 1 tab PO DAILY 11/16/20 06/23/23 clotrimazole-betamethasone 1 1 applic topical BID 10 days #15 01/28/21 06/23/23 %-0.05 % topical cream grams amitriptyline 50 mg tablet 50 mg PO DAILY 12/02/21 06/23/23 estradiol 0.01% (0.1 mg/gram) 1 appful vaginal DAILY #42.5 grams 10/10/22 06/23/23 vaginal cream (Estrace) semaglutide 1 mg/dose (2 mg/1.5 2 mg subcut QWEEK 12/11/22 06/23/23 mL) subcutaneous pen injector (Ozempic) vitamin B complex (B 1 tab PO DAILY 12/11/22 06/23/23 Complex-Vitamin B12 tablet) atorvastatin 10 mg tablet 10 mg PO DAILY 12/28/22 06/23/23 levalbuterol tartrate 45 2 inh inhalation Q6H 12/28/22 06/23/23 mcg/actuation aerosol inhaler metformin 1,000 mg tablet 1,000 mg PO BID 12/28/22 06/23/23 semaglutide 0.25 mg or 0.5 mg (2 0.25 mg subcut QWEEK 12/28/22 06/23/23 mg/3 mL) subcutaneous pen injector (Ozempic) spironolactone 25 mg tablet 25 mg PO DAILY 12/28/22 06/23/23 insulin glargine 100 unit/mL (3 17 unit subcut BID 04/06/23 06/23/23 mL) subcutaneous pen (Basaglar KwikPen U-100 Insulin) acetaminophen 500 mg tablet 1,000 mg (2 x 500 mg) PO TID #90 04/20/23 06/23/23 tabs celecoxib 200 mg capsule 200 mg PO DAILY #30 caps 06/01/23 06/23/23 mupirocin calcium 2 % topical cream 1 applic topical BID #30 grams 06/06/23 06/23/23 cephalexin 500 mg capsule 500 mg PO TID #21 caps 06/22/23 06/23/23 ferrous sulfate 325 mg (65 mg 325 mg PO DAILY 06/22/23 06/23/23 iron) tablet (Iron (ferrous sulfate)) cefpodoxime 200 mg tablet 200 mg PO BID 7 days #14 tabs 06/23/23 Previous Rx's Medication Instructions Recorded clotrimazole-betamethasone 1 1 applic topical BID 10 days #15 01/28/21 %-0.05 % topical cream grams estradiol 0.01% (0.1 mg/gram) 1 appful vaginal DAILY #42.5 grams 10/10/22 vaginal cream (Estrace) acetaminophen 500 mg tablet 1,000 mg (2 x 500 mg) PO TID #90 04/20/23 tabs celecoxib 200 mg capsule 200 mg PO DAILY #30 caps 06/01/23 mupirocin calcium 2 % topical cream 1 applic topical BID #30 grams 06/06/23 cephalexin 500 mg capsule 500 mg PO TID #21 caps 06/22/23 cefpodoxime 200 mg tablet 200 mg PO BID 7 days #14 tabs 06/23/23 Allergies Allergy/AdvReac Type Severity Reaction Status Date / Time erythromycin base Allergy Severe hives Verified 06/23/23 04:26 Sulfa (Sulfonamide Allergy Severe hives Verified 06/23/23 04:26 Antibiotics) sulfamethoxazole Allergy Verified 06/23/23 04:26 [From Bactrim] trimethoprim [From Bactrim] Allergy Verified 06/23/23 04:26 magnesium AdvReac Severe Diarrhea Verified 06/23/23 04:26 nitrofurantoin AdvReac Severe depression Verified 06/23/23 04:26 [From Macrobid] clomipramine [From Anafranil] AdvReac Intermediate Other (See Verified 06/23/23 04:26 Comment) ketamine AdvReac Intermediate hallucinati Verified 06/23/23 04:26 ons General Stated Complaint: FlankPain GROVER: 3 Review of Systems Narrative: Review of Systems Constitutional: negative Eyes: negative ENT: negative Cardiovascular: negative Respiratory: negative Gastrointestinal: negative : Flank pain Musculoskeletal: negative Skin: negative Neurologic: negative Psych: negative PFSH All Active Problems (Updated 06/23/23 @ 07:18 by Elvin Ugalde MD) UTI (urinary tract infection) (Acute) Degenerative joint disease of right hip (Chronic) S/P total left hip arthroplasty (Acute 04/18/23) Lateral epicondylitis of right elbow (Acute) Hematuria (Acute) Recurrent UTI (Chronic) Flank pain (Acute) Cystocele (Acute 04/13/15) Primary osteoarthritis of both knees (Chronic 07/26/15) Synvisc injections for many years Most recent Synvisc injections: 06/22/2023; 12/11/2022; 06/05/2022; 12/02/2021; 12/11/22; 06/22/23 Incarcerated incisional hernia (Acute) Hyperglycemia (Chronic) Lactic acid acidosis (Acute) Renal insufficiency (Chronic) Leukocytosis (leucocytosis) (Acute) Morbid obesity (Chronic) Hydronephrosis (Acute) Diabetes (Chronic) Right rotator cuff tendinitis (Acute) Steroid injection: 02/07/2021; 04/14/2019 Breast pain, left (Acute) 09/2019. Physical exam unremarkable. No additional testing ordered. Tendinitis of left elbow (Acute) Gross hematuria (Acute) Diarrhea (Acute) UTI (urinary tract infection) (Acute) Vaginal dryness, menopausal (Acute) Osteoarthritis of left hip (Acute) Peripheral neuropathy (Acute) Medical History (Updated 06/23/23 @ 07:18 by Elvin Ugalde MD) Osteoarthritis of hips, bilateral Calcium nephrolithiasis Bile acid malabsorption syndrome History of palpitations CAD (coronary artery disease) Vertigo Chronic lower back pain Urinary incontinence Osteoma Hypertension Neuropathy Chronic pain Degenerative joint disease Chronic leg pain Hypomagnesemia Hyperparathyroidism Plantar fasciitis Thyroid nodule Obstructive nephropathy Incisional hernia Herpes simplex Diarrhea Vaginitis Acute stress disorder PTSD (post-traumatic stress disorder) Cirrhosis of liver Other chromoabnormalities of urine Former smoker quit smoking 07/23/16 Depression Cardiomyopathy Urinary incontinence, mixed Obsessive compulsive disorder Vaginal wall prolapse Congestive heart failure Anemia Sleep apnea Sarcoidosis Anxiety Congenital ureterovesical obstruction Diabetes mellitus Kidney stone Essential hypertension Surgical History Tonsillectomy and adenoidectomy Open Carpal Tunnel release Oophrectomy, Both Lithotripsy Abdominal hysterectomy Fracture, Open Treatment Cholecystectomy Family History Mother Diabetes Heart disease Father Personal history of malignant neoplasm Lung Cancer Sister Personal history of malignant neoplasm Thyroid Cancer Social History Smoking/Tobacco Use Status: Former Tobacco Use Quit Date: 07/23/16 Smoking risk assessment performed?: Yes Alcohol Intake: current Alcohol Intake frequency: holidays/special occasions only Drug use: Rarely Substance use type: marijuana Details: edible Housing: apartment Current gender identity: female Do you feel safe at home: Yes Additional Social history: lives alone- will be stay 1-3 days in house here Exam Narrative Exam Narrative: Physical Examination General: alert, awake, cooperative, resting comfortably, no acute distress HEENT: normocephalic, atraumatic Neck: supple, trachea midline; full ROM Chest: normal to inspection Respiratory: normal respiratory effort, speaking in full sentences Skin: no lesions, rashes or trauma appreciated Neuro: AAOx3, normal speech, moving all extremities Psych: Appropriate mood and affect Course Vital Signs Vital signs: Vital Signs Temperature 36.3 C L 06/23/23 04:19 Pulse 89 06/23/23 04:19 Respiratory Rate 16 06/23/23 04:19 Blood Pressure 142/71 H 06/23/23 04:19 Pulse Oximetry 96 06/23/23 04:19 Temperature 36.3 C L 06/23/23 04:37 Temperature Source Temporal Artery Scan 06/23/23 04:37 Pulse 89 06/23/23 04:37 Respiratory Rate 16 06/23/23 04:37 Respiratory Effort Normal 06/23/23 04:24 Blood Pressure 142/71 H 06/23/23 04:37 Blood Pressure Position Sitting 06/23/23 04:37 Pulse Oximetry 96 06/23/23 04:37 Oxygen Delivery Method Room Air 06/23/23 04:37 Oxygen Flow Rate 0 06/23/23 04:19 Pain Level 8 06/23/23 04:37 Lab/Test Results Lab/Test Results: 06/23/23 04:20 Urine - Reflex from Ua Urine Culture - Pending Laboratory Tests Range/Units 06/23/23 04:20 Urine Color (Yellow) Yellow Urine Clarity (Clear) Cloudy Urine pH (5-8) 5.5 Ur Specific Ross (1.005-1.025) 1.025 Urine Protein (Negative) mg/dL 30 H Urine Ketones (Negative) mg/dL Negative Urine Blood (Negative) Moderate H Urine Nitrite (Negative) Negative Urine Bilirubin (Negative) Negative Urine Urobilinogen (Up to 0.2) mg/dL 0.2 Ur Leukocyte Esterase (Negative) Large H Urine RBC Not Applicable Urine WBC (0-5) HPF >50 H Ur Epithelial Cells Not Applicable Urine Crystals Not Applicable Urine Bacteria Not Applicable Urine Mucus Not Applicable Ur Culture Indicated? Yes Urine Glucose (Negative) mg/dL Negative
[2023-06-23] MEDS: Ketorolac 15 MG/ML VIAL IM (05:02)
[2023-06-23] MEDS: Tamsulosin 0.4 MG CAPCR PO (05:02)
[2023-06-23] MEDS: Cefpodoxime 200 MG TAB PO (05:02)
--- NOTE | 2023-06-23 07:24 | W.EDPROG ---
Date of service: 06/23/23 Time of Service: 07:24 Medical Decision Making I received signout on this 62-year-old female awaiting results from a dry CT scan. She has a history of recurrent small stones. She is currently on treatment for an outpatient UTI with cephalexin. Her microbiology from a urine culture shows pansensitive Klebsiella. Her original provider has changed her coverage to cefpodoxime for the next 7 days. If she does not have a large stone or any other complications she will be appropriate for discharge with empiric trial of expectant outpatient management. 8:[address] scan with no obstructive stones. I met with the patient she was feeling well. I discussed return for any fevers shortness of breath or worsening pain. Discharge per her original provider. Sign Out Sign Out Data: Sign Out Comment: UTI, mild flank pain resolved with meds; pending CT results to assess for kidney stone given patient history; started on cefpodoxime Last updated by Elvin Ugalde MD at 06/23/23 07:21 Discharge Plan Disposition Patient Disposition: Home Condition: Stable Discharge Details Clinical Impression: UTI (urinary tract infection) Primary Care Provider: Trev Burr ED Provider: Elvin Ugalde Home Meds and New Rx's Prescriptions: New cefpodoxime 200 mg tablet 200 mg PO BID 7 Days Qty: 14 0RF Rx Instructions: must administer with a meal/food Continued multivitamin Tablet 1 tab PO DAILY insulin glargine [Basaglar KwikPen U-100 Insulin] 100 unit/mL (3 mL) insulin pen 17 unit subcut BID Patient Comments: 15 Q AM, 13 Q PM vitamin B complex [B Complex-Vitamin B12] Tablet 1 tab PO DAILY estradiol [Estrace] 0.01 % (0.1 mg/gram) cream 1 appful vaginal DAILY Qty: 42.5 4RF Rx Instructions: daily for 2 weeks then twice weekly Ozempic 1 mg/dose (2 mg/1.5 mL) pen injector 2 mg subcut QWEEK celecoxib 200 mg capsule 200 mg PO DAILY Qty: 30 1RF Rx Instructions: Take one tablet once daily for pain and inflammation acyclovir 5 % cream 1 applic TP ONCE PRN diclofenac sodium [Voltaren] 1 % gel 2 gm TP QID PRN amitriptyline 50 mg tablet 50 mg PO DAILY ferrous sulfate [Iron (ferrous sulfate)] 325 mg (65 mg iron) tablet 325 mg PO DAILY nitroglycerin 0.4 MG tablet, sublingual 0.4 mg Sublingual PRN Patient Comments: 05/04/14: Pt carries NTG but has never had to use it. PG insulin aspart U-100 [Novolog FlexPen U-100 Insulin] 100 unit/mL (3 mL) insulin pen 15 unit subcut TID gabapentin 600 mg tablet 600 mg PO QID valacyclovir 1 gram tablet 1,000 mg PO DAILY clotrimazole-betamethasone 1-0.05 % cream 1 applic topical BID 10 Days Qty: 15 2RF atorvastatin 10 mg tablet 10 mg PO DAILY levalbuterol tartrate 45 mcg/actuation HFA aerosol inhaler 2 inh inhalation Q6H spironolactone 25 mg tablet 25 mg PO DAILY Ozempic 0.25 mg or 0.5 mg (2 mg/3 mL) pen injector 0.25 mg subcut QWEEK Rx Instructions: for 4 weeks metformin 1,000 mg tablet 1,000 mg PO BID mupirocin calcium 2 % cream 1 applic topical BID Qty: 30 0RF acetaminophen 500 mg tablet 1,000 mg PO TID Qty: 90 3RF loratadine 10 mg Tablet 10 mg PO DAILY lisinopril 5 mg Tablet 5 mg PO DAILY carvedilol 3.125 mg tablet 12.5 mg PO BID Discontinued cephalexin 500 mg capsule 500 mg PO TID Qty: 21 0RF Discharge Instructions Instructions: Urinary Tract Infection in Women (ED) Additional Instructions: Please follow-up close with your primary care physician. Return to the emergency department for any worsening symptoms. Your CAT scan showed no sign of any kidney stones that were causing blockages. You do have several kidney stones higher up. Please take this new antibiotic as directed and return for any fevers falls or flank pain. For your pain please take medications as follows: 1. Take acetaminophen (Tylenol), 1,000 mg (two 500 mg tabs) every 6 hours
--- NOTE | 2023-06-23 08:02 | DI.VRAD_ITS ---
PROCEDURE INFORMATION: Exam: CT Abdomen And Pelvis Without Contrast Exam date and time: 06/23/2023 5:14 AM Age: 62 years old Clinical indication: Abdominal pain; Flank; Right; Prior surgery; Surgery date: 6+ months; Surgery type: H/o hysterectomy, hernia surg, cholecystectomy; Additional info: RT flank pain, h/o kidney stones, h/o abd surg TECHNIQUE: Imaging protocol: Computed tomography of the abdomen and pelvis without contrast. COMPARISON: CT ABDOMEN PELVIS W 07/10/2022 3:20 PM . Note: Very recent unenhanced CT exam on 05/18/2023 and report for that exam are not available. FINDINGS: Liver: There is subtle undulation of the hepatic surface contour. Please correlate clinically regarding any history of cirrhosis. The liver measures approximately 20 cm maximum length. Gallbladder and bile ducts: Status post cholecystectomy. No significant biliary duct dilation. Pancreas: No acute abnormality or obvious pancreatic duct dilation. Spleen: Borderline mild splenomegaly. Adrenal glands: No suspicious adrenal masses. Kidneys and ureters: Bilateral nonobstructing nephrolithiasis. No ureteral calculi are identified. Stomach and bowel: No evidence of bowel obstruction. There is a wide aperture lower anterior midline abdominal wall hernia containing small bowel and the appendix (series 4, image 29; series 5, images 76-112). There is evidence of prior small bowel surgery. Appendix: No evidence of appendicitis. Intraperitoneal space: No free intraperitoneal air, significant ascites, or localized fluid collections. Vasculature: Diffuse aortoiliac atherosclerotic calcifications without aneurysmal dilation. Lymph nodes: No enlarged lymph nodes. Urinary bladder: Urinary bladder is grossly unremarkable but not distended, slightly limiting assessment. Reproductive: Status post hysterectomy. Bones/joints: Chronic multilevel lumbar degenerative disc disease and severe lower lumbar facet DJD are present. No obvious acute abnormality detected. Previous left hip replacement. Severe chronic right hip DJD. Soft tissues: See Stomach and bowel finding. IMPRESSION: 1. No conclusive evidence of acute abnormality within the abdomen or pelvis. 2. Cirrhotic liver morphology. Hepatosplenomegaly. 3. Bilateral nonobstructing nephrolithiasis. No ureteral calculus identified. 4. Lower anterior abdominal wall hernia without evidence of bowel obstruction. Additional incidental and/or nonacute findings as reported above. 5. Very recent CT exam and report on 05/18/2023 are not currently available for comparison. Dictated and Authenticated by: Alon Thurman MD. Ordering:YO Oconnor MD
[2023-06-23 08:38] VITALS: BP 151/60; PULSE 75; RESP 16; O2SAT 96
--- NOTE | 2023-06-23 10:03 | NUR.NOTE ---
Nursing Note: this RN Went in to patient chart After DC. Patient called unit to inquire what medications were given to her during her stay in the ED. She was satisfied with answer.
--- NOTE | 2023-06-25 08:14 | NUR.NOTE ---
Accessed chart to look up whether or not on antibiotic for culture result.Nursing Note:
== END 2023-06-23 08:43 | disposition home or self-care (01) ==
PROVIDERS: Emergency Provider Emergency Medicine; PCP Family Medicine
DX: N39.0 Urinary tract infection, site not specified (principal); R10.31 Right lower quadrant pain; Z87.440 Personal history of urinary (tract) infections; Z87.442 Personal history of urinary calculi
CPT/HCPCS: 00123; 96372; 99284; 74176; 81003; 81015; 87086; 99283; J1885

== ENCOUNTER 2023-07-04 04:23 | Outpatient (CLI) | payer MEDICARE, SELFPAY ==
[2023-07-04 12:07] LABS: Hemoglobin A1C 5.8 % (<5.7)
[2023-07-04 12:11] LABS: COMMENT (LAB VIEW ONLY) 47.97 mg/dL
[2023-07-04 12:12] LABS: Microalb ug/mg Crea 111.1 ug/mg Cr
[2023-07-04 12:14] LABS: ALT 15 U/L (14-59); AST 17 U/L (15-37); Albumin 3.5 g/dL (3.4-5.0); Alkaline Phosphatase 91 U/L (46-116); Anion Gap 9.2 mmol/L (3-11); BUN 20 mg/dL (7-18); Bilirubin, Total 0.6 mg/dL (0.2-1.0); CO2 23.8 mmol/L (21.0-32.0); CREATININE 0.9 mg/dL (0.55-1.02); Calculated LDL 23 mg/dL (<100); Chloride 106 mmol/L (98-107); Cholesterol 99 mg/dL (<200); Estimated GFR 71.83 (mL/min/1.73m2); Glucose 129 mg/dL (74-106); HDL Cholesterol 55 mg/dL (40-60); Potassium 4.4 mmol/L (3.5-5.1); Sodium 139 mmol/L (136-145); Total Protein 7.3 g/dL (6.4-8.2); Triglyceride 108 mg/dL (<150)
== END 2023-07-04 04:24 | disposition home or self-care (01) ==
PROVIDERS: PCP Family Medicine; Visit Provider Nurse Practitioner Family
DX: E11.65 Type 2 diabetes mellitus with hyperglycemia (principal)
CPT/HCPCS: 36415; 80053; 80061; 82043; 82570; 83036

== ENCOUNTER → 2023-07-20 01:31 | Outpatient (CLI) | payer MEDICARE, SELFPAY ==
--- NOTE | 2023-07-20 | DI.US_ITS ---
APPROVED REPORT EXAM: Comprehensive 2D, Doppler, and color-flow Echocardiogram Patient Location: Out-Patient Photographic Equipment Inspector: Óscar Fong RDCS (AE) Other Information Study Quality: Technically Limited. Technically limited study due to body habitus, inability to posit ion patient. Conclusion 1. Study was technically limited by patient's body habitus. 2. Left atrium appears mildly dilkated, other chambers normal. 3. Normal LV systolioc function,EF 55-60%; normal RV systolic function. 4. Valves appear grossly normal. No stenoses or significant regurgitation. 5. No pericardial effusion. Wall motion Left Ventricle Left ventricle is not well visualized. The left ventricle is grossly normal size. Technically limited exam due to body habitus and inability to position patient. There is no ventricular septal defect vi sualized. Right Ventricle Right ventricle is not well visualized. Right ventricular systolic function could not be assessed. Un able to assess PA pressure. Atria The left atrium size is normal. The right atrium size is normal. The interatrial septum is intact wit h no evidence for an atrial septal defect. Aortic Valve Aortic valve is grossly normal in structure. Number of aortic valve leaflets could not be assessed. T here is no aortic valvular stenosis. No aortic regurgitation is present. Mitral Valve The mitral valve is normal in structure. No evidence of mitral valve stenosis. Trace mitral regurgita tion. Tricuspid Valve The tricuspid valve is normal in structure. There is no tricuspid valve stenosis. Trace tricuspid reg urgitation. Pulmonic Valve Pulmonic valve is not well visualized. There is no pulmonic valvular regurgitation. Great Vessels The aortic root is normal in size. Ascending aorta is not well visualized. Aortic arch is normal in c aliber. IVC is normal in size and collapses >50% with inspiration. Pericardium There is no pericardial effusion. 2D Dimensions Ao Root d 3.38 cm F: 2.7 - 3.3 Auto EF LV EDV A4C 138.0 mL LV EDV A2C LV EDV BP LV ESV A4C 67.6 mL LV ESV A2C LV ESV BP LVEF(%) A4C 51.0 % LVEF(%) A2C LVEF(%) BP LV SV A4C 70.4 ml LV SV A2C LV SV BP LV CO A4C 4.8 L/min LV CO A2C LV CO BP HR A4C 67.55 BPM HR A2C LV EDV Index (BP) LA Volume LA Length A4C 3.9 cm LA Length A2C LA Area A4C s 7.49 cm2 LA Area A2C s LA Vol A4C A-L 12.30 mL LA Vol A2C A-L LA Vol Biplane A-L LA Vol A4C MOD 11.8 mL LA Vol A2C MOD LA Vol BP MOD RA Volume RA Area A4C 8.5 cm2 RA ESV A4C (A-L) 15.4mL RA Vol/BSA A4C A-L RA Length A4C 4.0 cm RA ESV A4C (MOD) 14.8mL LV Diastology MV E' medial 0.100 (>0.07 m/s) MV E Vmax 0.61 (0.4-1.3 m/s) MV E/E' MED 6.06 (<14) MV A Vmax 0.80 (0.4-1.3 m/s) MV E' lateral 0.074 (>0.1 m/s) E/A Ratio 0.8 MV E/E' LAT 8.20 (<14) MV E' Average 0.087 m/s MV E/E'(average) 6.97 Aortic Valve AoV Vmax 1.78 m/s LVOT Vmax 1.21 m/s AoV Peak Grad 12.6 mmHg LVOT Peak Grad 5.9 mmHg AoV VTI 0.353 m LVOT VTI 0.235 m AoV Mean Baron. 1.22 m/s LVOT Mean Grad 3.5 mmHg AoV Mean Grad 6.9 mmHg Velocity Ratio 0.68 Mitral Valve MV DT 190 (160-240 msec) MV Vmax TIPS 1.05 m/s MV Mean Grad 1.7 (<2mmHg) MV VTI 0.276 m
== END ==
PROVIDERS: PCP Family Medicine; Visit Provider Family Medicine
DX: I50.9 Heart failure, unspecified (principal)
CPT/HCPCS: 93306

== ENCOUNTER → 2023-07-25 12:51 | Outpatient (BNVA) | payer MEDICARE, SELFPAY | PROVIDERS: PCP Family Medicine; Referring Provider Family Medicine; Visit Provider Surgery | DX: D17.24 Benign lipomatous neoplasm of skin and subcutaneous tissue of left leg (principal) | CPT/HCPCS: 99214 ==

== ENCOUNTER → 2023-08-17 10:26 | Outpatient (BNVA) | payer MEDICARE, SELFPAY | PROVIDERS: PCP Family Medicine; Referring Provider Family Medicine; Visit Provider Student in an Organized Health Care Education/Training Program | DX: M77.11 Lateral epicondylitis, right elbow (principal) | CPT/HCPCS: 99213 ==

== ENCOUNTER 2023-11-17 20:50 | Inpatient (IN) | payer MEDICARE, SELFPAY ==
[2023-11-17] VITALS (59 sets, daily range): BP systolic 92–175; BP diastolic 32–146; PULSE 60–118; RESP 13–27; TEMP 36; O2SAT 91–98
--- NOTE | 2023-11-17 01:00 | DI.CT_ITS ---
Exam(s) CT ABDOMEN PELVIS W EXAM: CT ABDOMEN PELVIS W CLINICAL HISTORY: nausea vomiting. TECHNIQUE: Imaging Protocol: Axial computed tomography images with coronal and sagittal reformatted images were created and reviewed CONTRAST MATERIAL: Intravenous: Omnipaque-350 100cc Oral: None COMPARISON: No exams were available for comparison FINDINGS: VISUALIZED LUNG BASES: No nodules nor pleural effusions evident. ABDOMEN: There is no ascites. LIVER: There are no focal hepatic lesions evident. Liver exhibits cirrhotic appearance, similar to p revious. Varices/evidence of portal hypertension again noted. GALLBLADDER/BILIARY: Gallbladder is again noted be surgically absent. CBD is not dilated. PANCREAS: No evidence of pancreatic mass nor dilatation of the pancreatic duct. SPLEEN: Mild splenomegaly. No intrasplenic lesions. Splenic and portal veins are patent. Splenic a nd portal veins are patent. ADRENALS: There are no significant adrenal masses. KIDNEYS:There is bilateral nephrolithiasis. There is inhomogeneous enhancement of the right kidney w ith areas of a cortical hypodensity suspicious for pyelonephritis at risk for developing abscess. Th is measures 3.5 x 2.5 cm in the lateral cortex of the right kidney. There is also Hermelinda ureteral stre aking around the proximal ureter. Diameter of the right ureter is minimally prominent. No obvious r adiopaque calculi seen within the ureter nor within the partially collapsed urinary bladder. ABDOMINAL AORTA: Abdominal aorta is not enlarged. LYMPH NODES:There is no retroperitoneal nor paraaortic adenopathy. ABDOMINAL WALL: No evidence of significant anterior abdominal wall nor inguinal hernia. GI: There is no evidence of bowel obstruction, free air, nor abscess. PELVIS: GI: No evidence of appendicitis.No evidence of sigmoid diverticulitis. LYMPH NODES: There is no intrapelvic nor inguinal adenopathy. REPRODUCTIVE: Uterus surgically absent. No obvious abnormal adnexal masses nor free fluid in the pel vis. URINARY BLADDER: Partially obscured by beam hardening artifact from left hip prosthesis. No radiopaq ue calculi seen in the bladder lumen. OSSEOUS: Left hip prosthesis. Advanced degenerative changes in the opposite-right hip. No fractures . No osseous lesions. IMPRESSION: 1. The main acute finding is abnormal enhancement of the right kidney consistent with pyelonephritis. There is a 3.5 x 2.5 cm area in the lateral cortex of the right kidney which appears to be a signif icant risk for developing an abscess. Close follow-up recommended. 2. Bilateral nephrolithiasis. 3. Hepatic cirrhosis, splenomegaly, portal venous hypertension with varices. 4. Previous cholecystectomy and hysterectomy. Other findings as above. RADIATION DOSE DELIVERED: 2,047.14mGy.cm Total DLP DATA REPOSITORY: All CT scans at this facility are submitted to the National Radiology Data Registry (NRDR) Dose Index Registry (DIR) with the [employer] ([employer]). RADIATION OPTIMIZATION: All CT scans at this facility use at least one of these dose optimization te chniques: automated exposure control; mA and/or kV adjustment per patient size (includes targeted exa ms where dose is matched to clinical indication); or iterative reconstruction.
--- NOTE | 2023-11-17 20:45 | DI.CT_ITS ---
Exam(s) CT HEAD WO EXAM: CT HEAD WO CLINICAL HISTORY: nausea vomiting. TECHNIQUE: Imaging Protocol: Axial computed tomography images with coronal and sagittal reformatted images were created and reviewed COMPARISON: No exams were available for comparison FINDINGS: There are no skull fractures. There is no fluid in the visualized paranasal sinuses. There is no evidence of intracranial hemorrhage, mass effect, or shift of midline structures. There are no extra-axial fluid collections. The ventricles are not enlarged or shifted and there is no blo od within the ventricular system nor within the basal cisterns. IMPRESSION: No acute intracranial findings on this noninfused CT scan of the brain. RADIATION DOSE DELIVERED: 900.06mGy.cm Total DLP DATA REPOSITORY: All CT scans at this facility are submitted to the National Radiology Data Registry (NRDR) Dose Index Registry (DIR) with the [employer] ([employer]). RADIATION OPTIMIZATION: All CT scans at this facility use at least one of these dose optimization te chniques: automated exposure control; mA and/or kV adjustment per patient size (includes targeted exa ms where dose is matched to clinical indication); or iterative reconstruction.
--- NOTE | 2023-11-17 20:45 | RT.EKG_ITS ---
APPROVED REPORT Exam: Resting ECG Reason for Exam: runs of v tach Patient Location: E HR:126 bpm ECG Measurements Heart Rate 126 AXIS WV 64 P 0 QRSd 153 QRS -52 QT 427 T 102 QTc 619 Conclusion Sinus tachycardia...rate> 99 RBBB and LAFB...QRSd >120mS, axis(-40,240) LVH with secondary repolarization abnormality...multi-LVH criteria, abnrm ST-T regular wide complex tachycardia, consider afutter with aberrancy, versus junctional tachycardia, v S VT with aberrancy, lower suspicion for V tach given rate and morphology
--- NOTE | 2023-11-17 21:02 | ED.GENADUL_ITS ---
Discharge Plan Disposition Condition: Stable Discharge Details Chief Complaint: Nausea/Vomit/Diar Clinical Impression: Pyelonephritis, Hypokalemia, Hypomagnesemia Primary Care Provider: Trev Burr ED Provider: Elvin Ugalde Home Meds and New Rx's Prescriptions: No Action multivitamin Tablet 1 tab PO DAILY insulin glargine [Basaglar KwikPen U-100 Insulin] 100 unit/mL (3 mL) insulin pen 15 unit subcut BID Patient Comments: 15 Q AM, 13 Q PM vitamin B complex [B Complex-Vitamin B12] Tablet 1 tab PO DAILY estradiol [Estrace] 0.01 % (0.1 mg/gram) cream 1 appful vaginal DAILY Qty: 42.5 4RF Rx Instructions: daily for 2 weeks then twice weekly Ozempic 1 mg/dose (2 mg/1.5 mL) pen injector 2 mg subcut QWEEK acetaminophen 500 mg tablet 1,000 mg PO ONCE ibuprofen 200 mg capsule 800 mg PO Q6H PRN acyclovir 5 % cream 1 applic TP ONCE PRN diclofenac sodium [Voltaren] 1 % gel 2 gm TP QID PRN amitriptyline 50 mg tablet 50 mg PO DAILY ferrous sulfate [Iron (ferrous sulfate)] 325 mg (65 mg iron) tablet 325 mg PO DAILY celecoxib 200 mg capsule 200 mg PO BID nitroglycerin 0.4 MG tablet, sublingual 0.4 mg Sublingual PRN Patient Comments: 05/04/14: Pt carries NTG but has never had to use it. PG insulin aspart U-100 [Novolog FlexPen U-100 Insulin] 100 unit/mL (3 mL) insulin pen 15 unit subcut TID gabapentin 600 mg tablet 600 mg PO QID valacyclovir 1 gram tablet 1,000 mg PO DAILY clotrimazole-betamethasone 1-0.05 % cream 1 applic topical BID 10 Days Qty: 15 2RF atorvastatin 10 mg tablet 10 mg PO DAILY levalbuterol tartrate 45 mcg/actuation HFA aerosol inhaler 2 inh inhalation Q6H spironolactone 25 mg tablet 25 mg PO DAILY Ozempic 0.25 mg or 0.5 mg (2 mg/3 mL) pen injector 0.25 mg subcut QWEEK Rx Instructions: for 4 weeks metformin 1,000 mg tablet 1,000 mg PO BID mupirocin calcium 2 % cream 1 applic topical BID Qty: 30 0RF loratadine 10 mg Tablet 10 mg PO DAILY lisinopril 5 mg Tablet 5 mg PO DAILY carvedilol 3.125 mg tablet 12.5 mg PO BID HPI General Date/Time Provider Initiated Documentation: 11/17/23 20:51 . HPI Narrative: 62-year-old female history of coronary disease hypertension hyperlipidemia, diabetes, presents with nausea and vomiting over the last 2 days, blood sugar high and route over 200, patient noted to have intermittent episodes of wide- complex regular tachycardia concerning for V. tach on monitor, patient denies chest pain or shortness of breath. Related Data Home Medications Medication Instructions Recorded Confirmed nitroglycerin 0.4 mg sublingual 0.4 mg sublingual PRN 11/07/12 11/17/23 tablet loratadine 10 mg tablet 10 mg PO DAILY 07/09/18 11/17/23 lisinopril 5 mg tablet 5 mg PO DAILY 07/22/18 11/17/23 acyclovir 5 % topical cream 1 applic topical ONCE PRN 12/19/18 11/17/23 diclofenac sodium 1 % topical gel 2 gm topical QID PRN 12/19/18 11/17/23 (Voltaren) carvedilol 3.125 mg tablet 12.5 mg PO BID 04/16/20 11/17/23 gabapentin 600 mg tablet 600 mg PO QID 10/13/20 11/17/23 insulin aspart U-100 100 unit/mL 15 unit subcut TID 10/13/20 11/17/23 (3 mL) subcutaneous pen (Novolog FlexPen U-100 Insulin aspart) valacyclovir 1 gram tablet 1,000 mg PO DAILY 10/13/20 11/17/23 multivitamin 1 tab PO DAILY 11/16/20 11/17/23 clotrimazole-betamethasone 1 1 applic topical BID 10 days #15 01/28/21 11/17/23 %-0.05 % topical cream grams amitriptyline 50 mg tablet 50 mg PO DAILY 12/02/21 11/17/23 estradiol 0.01% (0.1 mg/gram) 1 appful vaginal DAILY #42.5 grams 10/10/22 11/17/23 vaginal cream (Estrace) semaglutide 1 mg/dose (2 mg/1.5 2 mg subcut QWEEK 12/11/22 11/17/23 mL) subcutaneous pen injector (Ozempic) vitamin B complex (B 1 tab PO DAILY 12/11/22 11/17/23 Complex-Vitamin B12 tablet) atorvastatin 10 mg tablet 10 mg PO DAILY 12/28/22 11/17/23 levalbuterol tartrate 45 2 inh inhalation Q6H 12/28/22 11/17/23 mcg/actuation aerosol inhaler metformin 1,000 mg tablet 1,000 mg PO BID 12/28/22 11/17/23 semaglutide 0.25 mg or 0.5 mg (2 0.25 mg subcut QWEEK 12/28/22 11/17/23 mg/3 mL) subcutaneous pen injector (Ozempic) spironolactone 25 mg tablet 25 mg PO DAILY 12/28/22 11/17/23 mupirocin calcium 2 % topical cream 1 applic topical BID #30 grams 06/06/23 11/17/23 ferrous sulfate 325 mg (65 mg 325 mg PO DAILY 06/22/23 11/17/23 iron) tablet (Iron (ferrous sulfate)) acetaminophen 500 mg tablet 1,000 mg PO ONCE 07/25/23 11/17/23 ibuprofen 200 mg capsule 800 mg PO Q6H PRN 07/25/23 11/17/23 insulin glargine 100 unit/mL (3 15 unit subcut BID 07/25/23 11/17/23 mL) subcutaneous pen (Basaglar KwikPen U-100 Insulin) celecoxib 200 mg capsule 200 mg PO BID 08/17/23 11/17/23 Previous Rx's Medication Instructions Recorded clotrimazole-betamethasone 1 1 applic topical BID 10 days #15 01/28/21 %-0.05 % topical cream grams estradiol 0.01% (0.1 mg/gram) 1 appful vaginal DAILY #42.5 grams 10/10/22 vaginal cream (Estrace) mupirocin calcium 2 % topical cream 1 applic topical BID #30 grams 06/06/23 Allergies Allergy/AdvReac Type Severity Reaction Status Date / Time erythromycin base Allergy Severe hives Verified 11/17/23 21:38 Sulfa (Sulfonamide Allergy Severe hives Verified 11/17/23 21:38 Antibiotics) sulfamethoxazole Allergy Other (See Verified 11/17/23 21:38 [From Bactrim] Comment) trimethoprim [From Bactrim] Allergy Other (See Verified 11/17/23 21:38 Comment) magnesium AdvReac Severe Diarrhea Verified 11/17/23 21:38 nitrofurantoin AdvReac Severe depression Verified 11/17/23 21:38 [From Macrobid] clomipramine [From Anafranil] AdvReac Intermediate Other (See Verified 11/17/23 21:38 Comment) ketamine AdvReac Intermediate hallucinati Verified 11/17/23 21:38 ons General Stated Complaint: Nausea/Vomit/Diar GROVER: 3 Review of Systems Narrative: Review of Systems Constitutional: negative Eyes: negative ENT: negative Cardiovascular: negative Respiratory: negative Gastrointestinal: Nausea vomiting : negative Musculoskeletal: negative Skin: negative Neurologic: negative Psych: negative Exam Narrative Exam Narrative: Physical Examination General: alert, awake, cooperative, mildly uncomfortable, dry heaving into emesis basin HEENT: normocephalic, atraumatic; PERRL, EOM intact, conjunctiva normal; no nasal discharge; moist mucous membranes, oral and pharyngeal mucosa normal, tolerating secretions Neck: supple, trachea midline; full ROM Chest: normal to inspection Respiratory: normal respiratory effort, speaking in full sentences, clear to auscultation, no wheezing, rales or rhonchi Cardiac: regular rate, regular rhythm, S1S2 intact, no murmurs rubs or gallops GI: abdomen soft, non-tender, non-distended; no palpable mass or hepatosplenomegal Skin: no lesions, rashes or trauma appreciated Neuro: AAOx3, normal speech, moving all extremities; cranial nerves intact 5-5 strength upper and lower extremities, no ataxia Extremities: No peripheral edema noted Psych: Appropriate mood and affect Course Vital Signs Vital signs: Vital Signs Temperature 36.0 C L 11/17/23 20:47 Respiratory Rate 20 11/17/23 20:47 Blood Pressure 138/111 H 11/17/23 20:47 Pulse Oximetry 97 11/17/23 20:47 Temperature 36.0 C L 11/17/23 20:47 Temperature Source Tympanic 11/17/23 20:47 Respiratory Rate 20 11/17/23 20:47 Blood Pressure 138/111 H 11/17/23 20:47 Pulse Oximetry 97 11/17/23 20:47 Oxygen Delivery Method Room Air 11/17/23 20:47 Oxygen Flow Rate 0 11/17/23 20:47 Pain Level 0 11/17/23 20:47 Medical Decision Making 62-year-old female history of diabetes coronary disease hypertension hyperlipidemia presents with nausea vomiting over the last 2 days, blood sugar over 200 per EMS, normotensive afebrile appears mildly uncomfortable dry heaving into emesis basin, alert interactive following commands no focal deficits, per EMS patient had multiple episodes of wide complex regular tachycardia and route, patient denies chest pain or shortness of breath no signs of peripheral edema, EKG showing regular wide complex tachycardia without definitive P waves consider SVT with a Dye C versus junctional tachycardia lower suspicion for V. tach muscles consider a flutter with aberrancy. Will obtain basic labs electrolytes troponin BNP chest x-ray head CT, CT abdomen pelvis consider electrolyte derangement versus DKA versus dehydration versus viral gastroenteritis versus intra-abdominal process such as colitis or appendicitis, muscles consider intracranial process such as mass edema or intracranial hemorrhage although nonfocal with normal mentation and neurologic examination, must also consider ACS, lower suspicion for aortic pathology or PE. Antiemetics fluids aspirin close reassessment 22:03 Due to persistent nausea and vomiting, on bedside monitor patient is in sinus rhythm and a rate around 60 bpm, with obvious ST depressions, intermittently goes into wide-complex tachycardia consider V. tach, will load with amiodarone 150 mg bolus over 10 minutes. Will trend troponin awaiting results of chest x-ray and CT abdomen pelvis. 2 2: 09 holding amiodarone for now as patient's magnesium came back as critically low 0.7, patient endorses nausea vomiting and diarrhea over the past couple of days consider hypomagnesemia in setting of GI losses leading to cardiac dysrhythmia, still there is the potential that patient's fast wide- complex is a flutter with aberrancy given rates consistently in the 120s versus A-fib with aberrancy most also still consider V. tach. Patient alert interactive normal mentation no chest pain or shortness of breath has been holding blood pressure until recently most recent blood pressure 98 systolic. 22: 18 while in room assessing patient witnessed 3 different morphologies to patient's QRS complex on monitor, first morphology is narrow complex regular sinus rhythm rates near 80 bpm, second morphology is paired PVCs and bigeminy pattern, third morphology is the slightly wide tachycardia that is regular at a rate of 120 which appears different than PVCs seen on monitor, making V. tach less likely the initial rhythm upon presentation and during EMS transport. High clinical suspicion for intra-abdominal infection leading to nausea vomiting and diarrhea which is depleted patient's magnesium destabilizing the cardiac membrane less likely primary cardiac process given history physical and telemetry findings as well as electrolyte findings. Pending results of CT abdomen pelvis will continue with fluids magnesium repletion potassium repletion amnio being held currently at bedside not to be administered at this time 23: 50 evidence of pyelonephritis likely cause of patient's nausea and vomiting. Metabolic losses of potassium and magnesium likely result in previous cardiac arrhythmias, much more stable after administration magnesium and potassium, intermittent episodes of bigeminy. Blood pressure improving 102/33. Resting comfortably no further vomiting. Have initiated ceftriaxone. Will admit for hydration antibiotic therapy and close monitoring of cardiac status. 00: 30 patient resting actively no acute distress. Troponin is uptrending to 1300, no chest pain or shortness of breath no presyncope or lightheadedness. Cardiac rhythm appears to be stabilizing, blood pressure holding in normal range. Continue with fluids and antibiotics for pyelonephritis. Hospitalist requested cardiology consult given multiple arrhythmias and elevating troponin. Low suspicion for primary ischemic process more likely demand in the setting of BERNARD dehydration metabolic derangement and pyelonephritis. Holding heparin at this time awaiting consultation with cardiology. Patient to be signed out Quality:SDOH Health Related Social Needs: No Data to Display PFSH All Active Problems (Updated 11/18/23 @ 00:29 by Ted Raman) Acute dehydration (Acute) Hypomagnesemia (Acute) Hypokalemia (Acute) Pyelonephritis (Acute) Nausea & vomiting (Acute) Elevated troponin level not due to acute coronary syndrome (Acute) Atrial flutter, paroxysmal (Acute) Pyelonephritis, acute (Acute) Lipoma (Acute) Degenerative joint disease of right hip (Chronic) S/P total left hip arthroplasty (Acute 04/18/23) Lateral epicondylitis of right elbow (Acute) Hematuria (Acute) Recurrent UTI (Chronic) Flank pain (Acute) Cystocele (Acute 04/13/15) Primary osteoarthritis of both knees (Chronic 07/26/15) Synvisc injections for many years Most recent Synvisc injections: 06/22/2023; 12/11/2022; 06/05/2022; 12/02/2021; 12/11/22; 06/22/23 Incarcerated incisional hernia (Acute) Hyperglycemia (Chronic) Lactic acid acidosis (Acute) Renal insufficiency (Chronic) Leukocytosis (leucocytosis) (Acute) Morbid obesity (Chronic) Hydronephrosis (Acute) Diabetes (Chronic) Right rotator cuff tendinitis (Acute) Steroid injection: 02/07/2021; 04/14/2019 Breast pain, left (Acute) 09/2019. Physical exam unremarkable. No additional testing ordered. Tendinitis of left elbow (Acute) Gross hematuria (Acute) Diarrhea (Acute) UTI (urinary tract infection) (Acute) Vaginal dryness, menopausal (Acute) Osteoarthritis of left hip (Acute) Peripheral neuropathy (Acute) Medical History Osteoarthritis of hips, bilateral Calcium nephrolithiasis Bile acid malabsorption syndrome History of palpitations CAD (coronary artery disease) Vertigo Chronic lower back pain Urinary incontinence Osteoma Hypertension Neuropathy Chronic pain Degenerative joint disease Chronic leg pain Hypomagnesemia Hyperparathyroidism Plantar fasciitis Thyroid nodule Obstructive nephropathy Incisional hernia Herpes simplex Diarrhea Vaginitis Acute stress disorder PTSD (post-traumatic stress disorder) Cirrhosis of liver Other chromoabnormalities of urine Former smoker quit smoking 07/23/16 Depression Cardiomyopathy Urinary incontinence, mixed Obsessive compulsive disorder Vaginal wall prolapse Congestive heart failure Anemia Sleep apnea Sarcoidosis Anxiety Congenital ureterovesical obstruction Diabetes mellitus Kidney stone Essential hypertension Surgical History Tonsillectomy and adenoidectomy Open Carpal Tunnel release Oophrectomy, Both Lithotripsy Abdominal hysterectomy Fracture, Open Treatment Cholecystectomy Family History Mother Diabetes Heart disease Father Personal history of malignant neoplasm Lung Cancer Sister Personal history of malignant neoplasm Thyroid Cancer Social History Smoking/Tobacco Use Status: Former Tobacco Use Quit Date: 07/23/16 Smoking risk assessment performed?: Yes Alcohol Intake: current Alcohol Intake frequency: holidays/special occasions only Drug use: Rarely Substance use type: marijuana Details: edible Housing: apartment Current gender identity: female Do you feel safe at home: Yes Additional Social history: lives alone- will be stay 1-3 days in house here
[2023-11-17 21:22] LABS: BE (Venous) -7 mmol/L (-2-3); HCO3 (Venous) 18 mmol/L (23-28); O2 Sat (Venous) 89 %; TCO2 (Venous) 16 mmol/L (24-29); pCO2 (Venous) 28 mmHg (41-51); pH (Venous) 7.41 (7.31-7.41); pO2 (Venous) 54 mmHg
[2023-11-17 21:23] LABS: Abs Immature Grans 0.24 10^3/uL (0.0-0.06); HCT 36.9 % (36.0-46.0); HGB 12.8 g/dL (11.2-15.7); MCHC 34.7 % (32.0-36.0); MCV 95 fL (80-95); Platelet Count 172 10^3/uL (130-400); RBC 3.88 10^6/uL (3.93-5.22); RDW 12.3 % (11.7-14.6); RDW-SD 42.9 fL
[2023-11-17 21:27] LABS: WBC 30.17 10^3/uL (4.4-10.8)
[2023-11-17 21:35] LABS: Absolute Lymphocyte Count 3.32 10^3/uL (1.2-3.4); Absolute Monocyte Count 1.81 10^3/uL (0.1-0.8); Absolute Neutrophil Count 25.04 10^3/uL (1.2-6.7); Bands % 5; Diff Comment Manual Differential; RBC Morphology Normal
[2023-11-17 21:36] LABS: INR 1.4 (0.9-1.1); PTT Activated 27.5 sec (23.6-32.8); Prothrombin Time 13.6 sec (9.1-11.1)
[2023-11-17] MEDS: Normal Saline 1,000 ML 1000 ML IV (21:36)
[2023-11-17] MEDS: Ondansetron 4 MG/2 ML VIAL IVP (21:37)
--- NOTE | 2023-11-17 21:45 | RT.EKG_ITS ---
APPROVED REPORT Exam: Resting ECG Reason for Exam: difficulty breathing Patient Location: E HR:62 bpm ECG Measurements Heart Rate 62 AXIS NM 261 P 31 QRSd 141 QRS -41 QT 396 T 100 QTc 400 Conclusion Sinus rhythm...normal P axis, V-rate 60- 99 Prolonged NM interval...NM >220, V-rate 50- 90 Left bundle branch block...QRSd>120, broad/notched R sinus rhtyhm left axis, LBBB
[2023-11-17 21:47] LABS: ALT 16 U/L (14-59); AST 19 U/L (15-37); Albumin 3.5 g/dL (3.4-5.0); Alkaline Phosphatase 80 U/L (46-116); Anion Gap 16.6 mmol/L (3-11); BUN 24 mg/dL (7-18); CO2 18.4 mmol/L (21.0-32.0); CREATININE 1.7 mg/dL (0.55-1.02); Calcium 8.8 mg/dL (8.5-10.1); Chloride 99 mmol/L (98-107); Estimated GFR 33.49 (mL/min/1.73m2); Glucose 298 mg/dL (74-106); Lipase 15 U/L (16-77); NT-proBNP 5494 pg/mL (<300); Potassium 3.1 mmol/L (3.5-5.1); Sodium 134 mmol/L (136-145); Total Protein 8.1 g/dL (6.4-8.2)
[2023-11-17 21:51] LABS: Troponin I 533 ng/L (< or =60)
--- NOTE | 2023-11-17 21:55 | DI.RAD_ITS ---
Exam(s) XR PORTABLE CHEST AP EXAM: XR PORTABLE CHEST AP CLINICAL HISTORY: n v vtach. TECHNIQUE: 2D digital imaging was performed. COMPARISON: CR,XR XR PORTABLE CHEST AP from 01/14/2021 FINDINGS: Single AP portable view. Heart size is upper normal. The mediastinum is not widened. Lungs are clear. No infiltrates nor obvious pleural effusions. No pulmonary edema evident. IMPRESSION: No acute pulmonary findings on this single AP portable view of the chest. DATA REPOSITORY: RADIATION DOSE DELIVERED:
[2023-11-17 22:01] LABS: Magnesium 0.7 mg/dL (1.8-2.4)
[2023-11-17] MEDS: MAGNESIUM SULFATE 2 GM/50 ML BAG IVINF (22:12)
--- NOTE | 2023-11-17 22:21 | DI.VRAD_ITS ---
PROCEDURE INFORMATION: Exam: XR Chest Exam date and time: 11/17/2023 9:47 PM Age: 62 years old Clinical indication: Other: N v vtach TECHNIQUE: Imaging protocol: Radiologic exam of the chest. Views: 1 view. Total images: 2 COMPARISON: CR XR PORTABLE CHEST AP 01/14/2021 6:35 PM FINDINGS: Lungs: Lungs are clear without consolidation. No vascular congestion. Pleural spaces: No pleural effusion or pneumothorax. Heart/Mediastinum: Unremarkable. Bones/joints: Unremarkable. IMPRESSION: No acute findings. Dictated and Authenticated by: Rah Clinton MD. Ordering:YO Oconnor MD
[2023-11-17] MEDS: Omnipaque 350 MG/ML 100 ML BTL IJ (22:56)
[2023-11-17] MEDS: Normal Saline - Diluent 50 ML VIAL IJ (22:57)
[2023-11-17] MEDS: POTASSIUM CHLORIDE 20 MEQ/100 ML BAG 50 MEQ IVINF (23:13)
[2023-11-17 23:30] LABS: Bilirubin Moderate (Negative); Blood Large (Negative); Clarity Sl Cloudy (Clear); Glucose Negative (Negative); Ketones Trace mg/dL (Negative); Leukocyte Esterase Small (Negative); Nitrite Positive (Negative); Specific Gravity 1.025 (1.005-1.025); pH 5.5 (5-8)
--- NOTE | 2023-11-17 23:38 | DI.VRAD_ITS ---
PROCEDURE INFORMATION: Exam: CT Head Without Contrast Exam date and time: 11/17/2023 10:53 PM Age: 62 years old Clinical indication: Other: Nausea vomiting TECHNIQUE: Imaging protocol: Computed tomography of the head without contrast. Radiation optimization: All CT scans at this facility use at least one of these dose optimization techniques: automated exposure control; mA and/or kV adjustment per patient size (includes targeted exams where dose is matched to clinical indication); or iterative reconstruction. COMPARISON: MR BRAIN WO/W 04/03/2022 2:14 PM FINDINGS: Brain: Cerebrum is unremarkable. Perez-white matter differentiation is intact. No mass lesion is seen. No mass effect or midline shift. Thalamus is unremarkable. No evidence of hemorrhage. Cerebellum is unremarkable. No posterior fossa mass lesion or mass effect. No pathologic edema. No evidence of cerebellar hemorrhage. Brainstem is unremarkable. No evidence of pontine hemorrhage. No mass effect on the brainstem. Cerebral ventricles: No ventriculomegaly. Paranasal sinuses: Visualized sinuses are unremarkable. No fluid levels. Mastoid air cells: Visualized mastoid air cells are well aerated. Bones/joints: Unremarkable. No acute fracture. Soft tissues: Unremarkable. IMPRESSION: No evidence of pathology. Dictated and Authenticated by: Maico Welsh MD. Ordering:YO Oconnor MD
--- NOTE | 2023-11-17 23:45 | DI.VRAD_ITS ---
PROCEDURE INFORMATION: Exam: CT Abdomen And Pelvis With Contrast Exam date and time: 11/17/2023 10:57 PM Age: 62 years old Clinical indication: Other: Nausea vomiting TECHNIQUE: Imaging protocol: Computed tomography of the abdomen and pelvis with contrast. Total images: 1540 Contrast material: 350; Contrast volume: 100 ml; Contrast route: INTRAVENOUS (IV); COMPARISON: CT ABDOMEN PELVIS WO 06/23/2023 5:14 AM FINDINGS: Lungs: Minimal scarring in the visualized right middle lobe and at the lung bases. Liver: Moderate diffuse hepatic steatosis. Hepatomegaly. Nodular liver contour. No hepatic nodule. Gallbladder and bile ducts: Cholecystectomy. No calcified common bile duct stone. Pancreas: No mass or peripancreatic stranding. Spleen: Stable mild splenomegaly. Chronic splenic cleft. Adrenal glands: No adrenal nodule. Kidneys and ureters: Left kidney homogeneously enhances. Stable 7 mm left renal lower pole stone. No left ureteral calculus. Heterogeneous right nephrogram with areas of cortical hypodensity. Right kidney is asymmetrically enlarged with asymmetric perinephric stranding. Several right renal medullary calculi. Stable mild right hydronephrosis to the level of the UPJ. No right ureteral calculus. Hypervascular mildly thickened right renal pelvic urothelium. Stomach and bowel: No definite gastric or duodenal wall thickening. No small or large bowel dilatation. No definite bowel wall thickening. Appendix: No evidence of appendicitis. Intraperitoneal space: No free air or free fluid. Vasculature: Aortoiliac atherosclerotic disease with major branch stenoses. Collateral vessels within the right mid mesentery feeding into a dilated shunt structure which empties into the IVC and is evident previously. No portal vein thrombosis. Lymph nodes: Right cardiophrenic angle lymph node, short axis diameter 1 cm, unchanged. Small retroperitoneal nodes. Urinary bladder: No definite bladder wall thickening or stone. Reproductive: Hysterectomy. Bones/joints: Total left hip replacement. Right hip osteoarthritis with significant osteoarthritis. Soft tissues: Large abdominal wall pannus. IMPRESSION: 1. Right-sided pyelonephritis/pyelitis with bilateral nephrolithiasis. 2. No bowel obstruction. 3. Cirrhosis and portal hypertension. Dictated and Authenticated by: Rah Clinton MD. Ordering:YO Oconnor MD
[2023-11-17 23:47] LABS: C & S Indicated? Yes; WBC >50 HPF (0-5)
[2023-11-18] VITALS (203 sets, daily range): BP systolic 64–158; BP diastolic 29–138; PULSE 54–117; RESP 0–29; TEMP 36–38.9; O2SAT 86–98
--- NOTE | 2023-11-18 00:20 | HPE_ITS ---
Date of service: 11/18/23 Time of Service: 00:20 Assessment and Plan Assessment and plan (1) Pyelonephritis, acute: Start date: 11/18/23 Status: Acute Assessment and plan: This is a 62-year-old lady who presented with nausea and vomiting and no true flank pain but did have fever and was found to have a right pyelonephritis. She was initiated on Rocephin and resuscitated with fluids with antiemetics and pain management. Urine culture was performed. This will be followed up and we will repeat imaging such as ultrasound if concerns for worsening stable mild right hydronephrosis with patient having bilateral nephrolithiasis. Does not appear to be an obstructing stone presently but urology can be consulted if patient is worsening. She does have fever later this morning and her WBC was markedly elevated at 30,000 with repeat this morning. (2) Nausea & vomiting: Start date: 11/18/23 Status: Acute Assessment and plan: Continue antiemetics and comfort while treating acute problems. Qualifiers: Vomiting type: unspecified Qualified Code(s): R11.2 - Nausea with vomiting, unspecified (3) Atrial flutter, paroxysmal: Start date: 11/18/23 Status: Acute Assessment and plan: There is a question of atrial flutter though the patient does not have a consistent dysrhythmia but is having intermittent tachycardia with wide complexes and intermittently and but appears to be a junctional rhythm. There may be atrial fibrillation as well. She is on DVT prophylaxis adjusted for weight. She was not heparinized with her elevated troponins but this can be rediscussed if her troponins are trending upward. She is not having chest pain or symptoms with her dysrhythmias. Will continue cardiac monitoring. Because of her tachycardia I will be more aggressive with magnesium replacement for her dysrhythmia and hold her Coreg starting metoprolol for better heart rate control. This also will help treat acute coronary ischemia if this is occurring though not evident. Repeat EKG. If she does require transportation to tertiary care center she would desire a place but [facility] [place]. (4) Elevated troponin level not due to acute coronary syndrome: Start date: 11/18/23 Status: Acute Assessment and plan: Patient not having chest pain or acute EKG changes but marked dysrhythmias as the morning progresses and upon presentation. Continue monitoring and trending troponin with patient having been given a loading dose of aspirin and high-dose statin now being on metoprolol. We discussed with cardiology if troponins continue to trend up. Patient is being treated for pyelonephritis which was thought to be the offending stressor with the troponin leak. If she is not transferred she will at least need to see cardiology locally and possibly have a stress test. She states that she has had cardiac catheterization in the past but does not remember the institution but does remember that no interventions were taken. She is a diabetic, overweight and has a history of CAD as well as hypertension with hyperlipidemia as risk factors. (5) Acute dehydration: Start date: 11/18/23 Status: Acute Assessment and plan: IV hydration being careful to watch for CHF the patient having a reduced left- ventricular ejection fraction by previous echocardiogram. Update echocardiogram. (6) Hypomagnesemia: Start date: 11/18/23 Status: Acute Assessment and plan: Recheck this morning and aggressively replace magnesium with the patient dysrhythmias improved last night with 2 g of magnesium sulfate given. She may need up to 4 g IV this morning. (7) Hypokalemia: Start date: 11/18/23 Status: Acute Assessment and plan: Replete with IV potassium and trend labs. (8) Congestive heart failure: Assessment and plan: With reduced left-ventricular ejection fraction on spironolactone chronically, with elevated troponins need to update echocardiogram. Consider stress test. Trend troponins. Watch for fluid overload and is rehydrated. Qualifiers: Heart failure chronicity: chronic Heart failure type: systolic Qualified Code(s): I50.22 - Chronic systolic (congestive) heart failure (9) Essential hypertension: Assessment and plan: Continue EDUARDA inhibitor and hold Coreg with metoprolol will be initiated for heart rate control which also should help with blood pressure control and treatment of acute cardiac stress. History of Present Illness History of Present Illness Chief Complaint: Nausea and vomiting for 2 days with hyperglycemia Narrative: This is a 62-year-old female patient who has a history of CAD with CHF and reduced left ejection fraction by echocardiogram in the remote past who presents with a 2-day history of nausea and vomiting with elevated blood sugar because of this stress as well as fever. She is uncomfortable and morbidly obese. He does also complain of some abdominal discomfort but no true flank pain. In the ED she was found to have wide-complex tachycardia without definite P waves thought to be possible SVT or atrial flutter as reported by the ED provider with no history of paroxysmal atrial fibs, atrial flutter or SVT. Magnesium was severely low at 0.7 she received 2 g of magnesium sulfate with this to be repeated this morning and a larger dose of magnesium to be given with her dysrhythmias began to become more severe as the morning progressed. She was admitted for treatment of pyelonephritis seen on CT with elevated troponins trending up upon admission but patient having no chest pain. It was thought that this was secondary after discussion with [facility] [place] cardiology and they did not recommend heparinization but aspirin and high-dose Lipitor with trending troponins. At time I saw the patient she was uncomfortable and moving about in bed asking for water. She does have a history of diabetes as mentioned and is already on a low-dose Lipitor for lipid control. She also has a history of hypertension. She continues to have some nausea and discomfort and is responding to antiemetics and morphine. She also is having gentle hydration with water. Be acute dehydration with her nausea vomiting for 2 days prior to admission. I discussed whether she would need to be transferred to tertiary care center with her troponins and heart dysrhythmias despite treating her acute issues and patient stated that she would not want to go to [facility] [place] [facility] if transfer needed but was open to [facility] or other centers. She is a full code. Review of Systems Narrative: 13 point review of systems negative for any peripheral edema or increased weight though she is morbidly obese, denies any chest pain or shortness of breath and has had no cough. She has had no diarrhea with her nausea and vomiting. Otherwise as per HPI or stable. [facility] All Active Problems Acute dehydration (Acute) Hypomagnesemia (Acute) Hypokalemia (Acute) Pyelonephritis (Acute) Nausea & vomiting (Acute) Elevated troponin level not due to acute coronary syndrome (Acute) Atrial flutter, paroxysmal (Acute) Pyelonephritis, acute (Acute) Lipoma (Acute) Degenerative joint disease of right hip (Chronic) S/P total left hip arthroplasty (Acute 04/18/23) Lateral epicondylitis of right elbow (Acute) Hematuria (Acute) Recurrent UTI (Chronic) Flank pain (Acute) Cystocele (Acute 04/13/15) Primary osteoarthritis of both knees (Chronic 07/26/15) Synvisc injections for many years Most recent Synvisc injections: 06/22/2023; 12/11/2022; 06/05/2022; 12/02/2021; 12/11/22; 06/22/23 Incarcerated incisional hernia (Acute) Hyperglycemia (Chronic) Lactic acid acidosis (Acute) Renal insufficiency (Chronic) Leukocytosis (leucocytosis) (Acute) Morbid obesity (Chronic) Hydronephrosis (Acute) Diabetes (Chronic) Right rotator cuff tendinitis (Acute) Steroid injection: 02/07/2021; 04/14/2019 Breast pain, left (Acute) 09/2019. Physical exam unremarkable. No additional testing ordered. Tendinitis of left elbow (Acute) Gross hematuria (Acute) Diarrhea (Acute) UTI (urinary tract infection) (Acute) Vaginal dryness, menopausal (Acute) Osteoarthritis of left hip (Acute) Peripheral neuropathy (Acute) Medical History Osteoarthritis of hips, bilateral Calcium nephrolithiasis Bile acid malabsorption syndrome History of palpitations CAD (coronary artery disease) Vertigo Chronic lower back pain Urinary incontinence Osteoma Hypertension Neuropathy Chronic pain Degenerative joint disease Chronic leg pain Hypomagnesemia Hyperparathyroidism Plantar fasciitis Thyroid nodule Obstructive nephropathy Incisional hernia Herpes simplex Diarrhea Vaginitis Acute stress disorder PTSD (post-traumatic stress disorder) Cirrhosis of liver Other chromoabnormalities of urine Former smoker quit smoking 07/23/16 Depression Cardiomyopathy Urinary incontinence, mixed Obsessive compulsive disorder Vaginal wall prolapse Congestive heart failure Anemia Sleep apnea Sarcoidosis Anxiety Congenital ureterovesical obstruction Diabetes mellitus Kidney stone Essential hypertension Surgical History Tonsillectomy and adenoidectomy Open Carpal Tunnel release Oophrectomy, Both Lithotripsy Abdominal hysterectomy Fracture, Open Treatment Cholecystectomy Family History Mother Diabetes Heart disease Father Personal history of malignant neoplasm Lung Cancer Sister Personal history of malignant neoplasm Thyroid Cancer Social History Smoking/Tobacco Use Status: Former Tobacco Use Quit Date: 07/23/16 Smoking risk assessment performed?: Yes Alcohol Intake: current Alcohol Intake frequency: holidays/special occasions only Drug use: Rarely Substance use type: marijuana Details: edible Housing: apartment Current gender identity: female Do you feel safe at home: Yes Additional Social history: lives alone- will be stay 1-3 days in house here Meds Allergies and Home Medications Allergies Allergy/AdvReac Type Severity Reaction Status Date / Time erythromycin base Allergy Severe hives Verified 11/17/23 21:38 Sulfa (Sulfonamide Allergy Severe hives Verified 11/17/23 21:38 Antibiotics) sulfamethoxazole Allergy Other (See Verified 11/17/23 21:38 [From Bactrim] Comment) trimethoprim [From Bactrim] Allergy Other (See Verified 11/17/23 21:38 Comment) magnesium AdvReac Severe Diarrhea Verified 11/17/23 21:38 nitrofurantoin AdvReac Severe depression Verified 11/17/23 21:38 [From Macrobid] clomipramine [From Anafranil] AdvReac Intermediate Other (See Verified 11/17/23 21:38 Comment) ketamine AdvReac Intermediate hallucinati Verified 11/17/23 21:38 ons Home Medications Medication Instructions Recorded Confirmed Type nitroglycerin 0.4 mg sublingual 0.4 mg sublingual PRN 11/07/12 11/17/23 History tablet loratadine 10 mg tablet 10 mg PO DAILY 07/09/18 11/17/23 History lisinopril 5 mg tablet 5 mg PO DAILY 07/22/18 11/17/23 History acyclovir 5 % topical cream 1 applic topical ONCE PRN 12/19/18 11/17/23 History diclofenac sodium 1 % topical gel 2 gm topical QID PRN 12/19/18 11/17/23 History (Voltaren) carvedilol 3.125 mg tablet 12.5 mg PO BID 04/16/20 11/17/23 History gabapentin 600 mg tablet 600 mg PO QID 10/13/20 11/17/23 History insulin aspart U-100 100 unit/mL 15 unit subcut TID 10/13/20 11/17/23 History (3 mL) subcutaneous pen (Novolog FlexPen U-100 Insulin aspart) valacyclovir 1 gram tablet 1,000 mg PO DAILY 10/13/20 11/17/23 History multivitamin 1 tab PO DAILY 11/16/20 11/17/23 History clotrimazole-betamethasone 1 1 applic topical BID 10 days #15 01/28/21 11/17/23 Rx %-0.05 % topical cream grams amitriptyline 50 mg tablet 50 mg PO DAILY 12/02/21 11/17/23 History estradiol 0.01% (0.1 mg/gram) 1 appful vaginal DAILY #42.5 grams 10/10/22 11/17/23 Rx vaginal cream (Estrace) semaglutide 1 mg/dose (2 mg/1.5 2 mg subcut QWEEK 12/11/22 11/17/23 History mL) subcutaneous pen injector (Ozempic) vitamin B complex (B 1 tab PO DAILY 12/11/22 11/17/23 History Complex-Vitamin B12 tablet) atorvastatin 10 mg tablet 10 mg PO DAILY 12/28/22 11/17/23 History levalbuterol tartrate 45 2 inh inhalation Q6H 12/28/22 11/17/23 History mcg/actuation aerosol inhaler metformin 1,000 mg tablet 1,000 mg PO BID 12/28/22 11/17/23 History semaglutide 0.25 mg or 0.5 mg (2 0.25 mg subcut QWEEK 12/28/22 11/17/23 History mg/3 mL) subcutaneous pen injector (Ozempic) spironolactone 25 mg tablet 25 mg PO DAILY 12/28/22 11/17/23 History mupirocin calcium 2 % topical cream 1 applic topical BID #30 grams 06/06/23 11/17/23 Rx ferrous sulfate 325 mg (65 mg 325 mg PO DAILY 06/22/23 11/17/23 History iron) tablet (Iron (ferrous sulfate)) acetaminophen 500 mg tablet 1,000 mg PO ONCE 07/25/23 11/17/23 History ibuprofen 200 mg capsule 800 mg PO Q6H PRN 07/25/23 11/17/23 History insulin glargine 100 unit/mL (3 15 unit subcut BID 07/25/23 11/17/23 History mL) subcutaneous pen (Basaglar KwikPen U-100 Insulin) celecoxib 200 mg capsule 200 mg PO BID 08/17/23 11/17/23 History Exam Narrative Exam Narrative: General: Patient appears older than stated age, in moderate distress guarding in bed because of discomfort and at times having difficulty understanding conversation. She has a flattened affect and depressed mood. She is alert and oriented x 3. She is morbidly obese. HEENT: Normocephalic, eyes with pupils equal and reactive to light symmetrically, extraocular movement tachycardia sclera anicteric. Oropharynx with slightly dry mucosa and fair dentition. Neck: Supple without JVD. Back: Stooped posture with slight right CVA tenderness. Lungs: Fair aeration clear to auscultation percussion with no focalizing rales or rhonchi. No expiratory wheeze. Heart: Tachycardic rate intermittently with irregular rhythm, 3-4 6 systolic murmur over left sternal border. No rubs or gallops. Breast: Exam deferred. Abdomen: Obese contour, soft with some tenderness to palpation especially over right abdomen with no palpable hepatosplenomegaly but difficult exam for her obesity and slight guarding with tenderness. Bowel sounds positive in all quadrants. Genitalia/rectal: Exam deferred. Patient has Zheng catheter in place. Extremities: Without clubbing, cyanosis or pitting edema. Peripheral pulses intact. Skin: Normal color, warm and dry. Neuro: No focalizing motor deficits, cranial nerves II through XII grossly intact, no tremor. Psych: Patient is restless shifting in bed with flattened affect and depressed mood. No abnormal thought processes. At times she has problems concentrating with her discomfort. Remote and recent memory grossly intact. Results Imaging Imaging Studies: Exam: CT Abdomen And Pelvis With Contrast Exam date and time: 11/17/2023 10:57 PM Age: 62 years old Clinical indication: Other: Nausea vomiting TECHNIQUE: Imaging protocol: Computed tomography of the abdomen and pelvis with contrast. Total images: 1540 Contrast material: 350; Contrast volume: 100 ml; Contrast route: INTRAVENOUS (IV); COMPARISON: CT ABDOMEN PELVIS WO 06/23/2023 5:14 AM FINDINGS: Lungs: Minimal scarring in the visualized right middle lobe and at the lung bases. Liver: Moderate diffuse hepatic steatosis. Hepatomegaly. Nodular liver contour. No hepatic nodule. Gallbladder and bile ducts: Cholecystectomy. No calcified common bile duct stone. Pancreas: No mass or peripancreatic stranding. Spleen: Stable mild splenomegaly. Chronic splenic cleft. Adrenal glands: No adrenal nodule. Kidneys and ureters: Left kidney homogeneously enhances. Stable 7 mm left renal lower pole stone. No left ureteral calculus. Heterogeneous right nephrogram with areas of cortical hypodensity. Right kidney is asymmetrically enlarged with asymmetric perinephric stranding. Several right renal medullary calculi. Stable mild right hydronephrosis to the level of the UPJ. No right ureteral calculus. Hypervascular mildly thickened right renal pelvic urothelium. Stomach and bowel: No definite gastric or duodenal wall thickening. No small or large bowel dilatation. No definite bowel wall thickening. Appendix: No evidence of appendicitis. Intraperitoneal space: No free air or free fluid. Vasculature: Aortoiliac atherosclerotic disease with major branch stenoses. Collateral vessels within the right mid mesentery feeding into a dilated shunt structure which empties into the IVC and is evident previously. No portal vein thrombosis. Lymph nodes: Right cardiophrenic angle lymph node, short axis diameter 1 cm, unchanged. Small retroperitoneal nodes. Urinary bladder: No definite bladder wall thickening or stone. Reproductive: Hysterectomy. Bones/joints: Total left hip replacement. Right hip osteoarthritis with significant osteoarthritis. Soft tissues: Large abdominal wall pannus. IMPRESSION: 1. Right-sided pyelonephritis/pyelitis with bilateral nephrolithiasis. 2. No bowel obstruction. 3. Cirrhosis and portal hypertension. Exam: CT Head Without Contrast Exam date and time: 11/17/2023 10:53 PM Age: 62 years old Clinical indication: Other: Nausea vomiting TECHNIQUE: Imaging protocol: Computed tomography of the head without contrast. Radiation optimization: All CT scans at this facility use at least one of these dose optimization techniques: automated exposure control; mA and/or kV adjustment per patient size (includes targeted exams where dose is matched to clinical indication); or iterative reconstruction. COMPARISON: MR BRAIN WO/W 04/03/2022 2:14 PM FINDINGS: Brain: Cerebrum is unremarkable. Perez-white matter differentiation is intact. No mass lesion is seen. No mass effect or midline shift. Thalamus is unremarkable. No evidence of hemorrhage. Cerebellum is unremarkable. No posterior fossa mass lesion or mass effect. No pathologic edema. No evidence of cerebellar hemorrhage. Brainstem is unremarkable. No evidence of pontine hemorrhage. No mass effect on the brainstem. Cerebral ventricles: No ventriculomegaly. Paranasal sinuses: Visualized sinuses are unremarkable. No fluid levels. Mastoid air cells: Visualized mastoid air cells are well aerated. Bones/joints: Unremarkable. No acute fracture. Soft tissues: Unremarkable. IMPRESSION: No evidence of pathology. Labs 11/17/23 21:17 11/17/23 21:17 Labs: Laboratory Results - last 24 hr 11/17/23 11/17/23 21:17 23:25 WBC 30.17 H* RBC 3.88 L Hgb 12.8 Hct 36.9 MCV 95 MCH 33.0 MCHC 34.7 RDW 12.3 Plt Count 172 MPV 10.0 Immature Gran % 0.0 Neutrophils % 78.0 Band Neutrophils % 5 Lymphocytes % 11.0 Monocytes % 6.0 Eosinophils % 0.0 Basophils % 0.0 Nucleated RBC % 0.0 Absolute Neutrophils 25.04 H Absolute Lymphocytes 3.32 Absolute Monocytes 1.81 H Absolute Eosinophils 0.00 Absolute Basophils 0.00 RBC Morphology Normal PT 13.6 H INR 1.4 H APTT 27.5 VBG pH 7.41 VBG pCO2 28 L VBG pO2 54 VBG HCO3 18 L VBG Total CO2 16 L VBG O2 Saturation 89 VBG Base Excess -7 L Sodium 134 L Potassium 3.1 L Chloride 99 Carbon Dioxide 18.4 L Anion Gap 16.6 H BUN 24 H Creatinine 1.7 H Est GFR (CKD-EPI 2020) 33.49 Glucose 298 H Calcium 8.8 Magnesium 0.7 L Total Bilirubin 3.0 H AST 19 ALT 16 Alkaline Phosphatase 80 Troponin I 533 H* NT-Pro-B Natriuret Pep 5494 H Total Protein 8.1 Albumin 3.5 Lipase 15 L Urine Color Yellow Urine Clarity Sl Cloudy Urine pH 5.5 Ur Specific [place] 1.025 Urine Protein >=300 H Urine Ketones Trace H Urine Blood Large H Urine Nitrite Positive H Urine Bilirubin Moderate H Urine Urobilinogen 1.0 H Ur Leukocyte Esterase Small H Urine RBC Urine WBC >50 H Ur Epithelial Cells Not Applicable Urine Crystals Not Applicable Urine Bacteria Not Applicable Urine Mucus Not Applicable Ur Culture Indicated? Yes Urine Glucose Negative Last Vital Signs Temp 36.0 C L 11/17/23 21:20 Pulse 78 11/17/23 23:31 Resp 20 11/17/23 23:31 BP 102/33 L 11/17/23 23:31 Pulse Ox 96 11/17/23 23:31 Time Spent Time spent with Patient: >75 minutes Time was spent: preparing to see the patient(eg.review tests), obtaining and/or reviewing separately otained hiistory, ordering medications,tests, procedures, referring, communicating with other health caretaker, indepentently interpreting results and care coordination
[2023-11-18 00:22] LABS: Troponin I 1348 ng/L (< or =60)
[2023-11-18] MEDS: cefTRIAXone 1 GM/50 ML BAG IVPB ×2 (00:25→08:09)
[2023-11-18 00:32] LABS: COVID-19 PCR Negative (Negative); Influenza A PCR Negative (Negative); Influenza B PCR Negative (Negative); RSV PCR Negative (Negative)
[2023-11-18 00:35] LABS: Source Nasopharynx
--- NOTE | 2023-11-18 00:47 | ED.PROG_ITS ---
Date of service: 11/18/23 Time of Service: 00:30 Medical Decision Making This patient was signed out to me. Please see previous notes for H&P and initial eval. In brief, 62yo F with sepsis & pyleonephritis, likely [id number], marked cardiac arrhythmias and electrolyte derangements . Plan for admission to [facility]; hospitalist requesting input from cardiology regarding potential need for heparin and/or urgent cardiac catheterization. Discussed with Dr. [place]en[place] [facility] cardiology; advised aspirin, high-intensity statin, no heparin at this time, echo when available on Sunday, and close outpatient followup with cardiology for possible stress test or elective cath. Discussed with hospitalist Dr. Raman; patient accepted to medicine service and awaiting transfer to unit. Quality:[facility] Health Related Social Needs: No Data to Display Sign Out Sign Out Data: Sign Out Comment: pyelonephritis, BERNARD, hypomag, leading to arrhythmia, likely de jasbir ischemia resultant in elevated trop; admission to [facility] pending cardiology consultation Last updated by Elvin Ugalde MD at 11/18/23 00:35 Discharge Plan Disposition Patient Disposition: Admit to [facility] Condition: Stable Discharge Details Clinical Impression: Pyelonephritis, Hypokalemia, Hypomagnesemia Primary Care Provider: Trev Burr ED Provider: Yuni Bedolla Home Meds and New Rx's Prescriptions: No Action multivitamin Tablet 1 tab PO DAILY insulin glargine [Basaglar KwikPen U-100 Insulin] 100 unit/mL (3 mL) insulin pen 15 unit subcut BID Patient Comments: 15 Q AM, 13 Q PM vitamin B complex [B Complex-Vitamin B12] Tablet 1 tab PO DAILY estradiol [Estrace] 0.01 % (0.1 mg/gram) cream 1 appful vaginal DAILY Qty: 42.5 4RF Rx Instructions: daily for 2 weeks then twice weekly Ozempic 1 mg/dose (2 mg/1.5 mL) pen injector 2 mg subcut QWEEK acetaminophen 500 mg tablet 1,000 mg PO ONCE ibuprofen 200 mg capsule 800 mg PO Q6H PRN acyclovir 5 % cream 1 applic TP ONCE PRN diclofenac sodium [Voltaren] 1 % gel 2 gm TP QID PRN amitriptyline 50 mg tablet 50 mg PO DAILY ferrous sulfate [Iron (ferrous sulfate)] 325 mg (65 mg iron) tablet 325 mg PO DAILY celecoxib 200 mg capsule 200 mg PO BID nitroglycerin 0.4 MG tablet, sublingual 0.4 mg Sublingual PRN Patient Comments: 05/04/14: Pt carries NTG but has never had to use it. PG insulin aspart U-100 [Novolog FlexPen U-100 Insulin] 100 unit/mL (3 mL) insulin pen 15 unit subcut TID gabapentin 600 mg tablet 600 mg PO QID valacyclovir 1 gram tablet 1,000 mg PO DAILY clotrimazole-betamethasone 1-0.05 % cream 1 applic topical BID 10 Days Qty: 15 2RF atorvastatin 10 mg tablet 10 mg PO DAILY levalbuterol tartrate 45 mcg/actuation HFA aerosol inhaler 2 inh inhalation Q6H spironolactone 25 mg tablet 25 mg PO DAILY Ozempic 0.25 mg or 0.5 mg (2 mg/3 mL) pen injector 0.25 mg subcut QWEEK Rx Instructions: for 4 weeks metformin 1,000 mg tablet 1,000 mg PO BID mupirocin calcium 2 % cream 1 applic topical BID Qty: 30 0RF loratadine 10 mg Tablet 10 mg PO DAILY lisinopril 5 mg Tablet 5 mg PO DAILY carvedilol 3.125 mg tablet 12.5 mg PO BID
[2023-11-18] MEDS: MORPHine 10 MG/ML VIAL 2 MG IVP ×2 (00:57→02:32)
[2023-11-18] MEDS: Normal Saline 1,000 ML 125 ML IV (03:52)
[2023-11-18] MEDS: Atorvastatin 40 MG TAB 80 MG PO (03:53)
[2023-11-18] MEDS: Normal Saline Flush 10 ML SYR IVP ×2 (03:56→08:36)
--- NOTE | 2023-11-18 04:09 | RESPIRATORY ---
RT seen pt. for sleep apnea. Pt. states that she does not use any kind of CPAP machine currently.
--- NOTE | 2023-11-18 06:00 | RT.EKG_ITS ---
APPROVED REPORT Exam: Resting ECG Reason for Exam: symptomatic/change in HR Patient Location: I HR:113 bpm ECG Measurements Heart Rate 113 AXIS CO 215 P -56 QRSd 151 QRS -57 QT 474 T 93 QTc 650 Conclusion Sinus or ectopic atrial tachycardia...P axis (-45,135), rate> 99 Prolonged CO interval...CO >215, V-rate 91-120 Probable left atrial enlargement...P >50mS, <-0.10mV V1 RBBB and LAFB...QRSd >120mS, axis(-40,240) LVH with secondary repolarization abnormality...multi-LVH criteria, abnrm ST-T
[2023-11-18] MEDS: Enoxaparin 40 MG/0.4 ML SYR SC (06:02)
[2023-11-18] MEDS: MAGNESIUM SULFATE 4 GM/100 ML BAG IVINF (06:55)
[2023-11-18 07:06] LABS: HCT 36.4 % (36.0-46.0); HGB 12.4 g/dL (11.2-15.7); MCHC 34.1 % (32.0-36.0); MCV 97 fL (80-95); MPV 10.9 fL (8.0-11.0); Platelet Count 136 10^3/uL (130-400); RBC 3.76 10^6/uL (3.93-5.22); RDW 12.3 % (11.7-14.6); RDW-SD 43.8 fL; WBC 20.67 10^3/uL (4.4-10.8)
[2023-11-18 07:16] LABS: INR 1.2 (0.9-1.1); Prothrombin Time 12.3 sec (9.1-11.1)
[2023-11-18 07:26] LABS: ALT 15 U/L (14-59); AST 22 U/L (15-37); Albumin 3.3 g/dL (3.4-5.0); Alkaline Phosphatase 75 U/L (46-116); Anion Gap 16.1 mmol/L (3-11); BUN 29 mg/dL (7-18); Bilirubin, Total 2.7 mg/dL (0.2-1.0); CO2 19.9 mmol/L (21.0-32.0); CREATININE 1.6 mg/dL (0.55-1.02); Calcium 8.7 mg/dL (8.5-10.1); Chloride 101 mmol/L (98-107); Estimated GFR 36.01 (mL/min/1.73m2); Glucose 267 mg/dL (74-106); Magnesium 1.2 mg/dL (1.8-2.4); Potassium 3.4 mmol/L (3.5-5.1); Sodium 137 mmol/L (136-145); Total Protein 7.7 g/dL (6.4-8.2)
[2023-11-18 07:44] LABS: Troponin I 2001 ng/L (< or =60)
[2023-11-18] MEDS: Spironolactone 25 MG TAB PO (08:09)
[2023-11-18] MEDS: Vitamins B Comp w/C TAB 1 TAB PO (08:09)
[2023-11-18] MEDS: Gabapentin 600 MG TAB PO (08:09)
[2023-11-18] MEDS: valACYclovir 1,000 MG TAB 1000 MG PO (08:09)
[2023-11-18] MEDS: Aspirin 81 MG CHEW PO (08:09)
[2023-11-18] MEDS: Multivitamin TAB 1 TAB PO (08:10)
[2023-11-18] MEDS: POTASSIUM CHLORIDE 10 MEQ/100 ML BAG 100 MEQ IVINF ×4 (08:12→12:35)
[2023-11-18] MEDS: ACETAMINOPHEN 1,000 MG/100 ML BTL 400 MG IVPB (08:12)
[2023-11-18] MEDS: Ferrous Sulfate 325 MG TAB PO (08:14)
[2023-11-18] MEDS: Loratidine 10 MG TAB PO (08:36)
[2023-11-18] MEDS: Lisinopril 5 MG TAB PO (08:36)
[2023-11-18] MEDS: Amitriptyline 50 MG TAB PO (08:36)
[2023-11-18 08:56] LABS: Troponin I 1966 ng/L (< or =60)
--- NOTE | 2023-11-18 09:45 | RT.EKG_ITS ---
APPROVED REPORT Exam: Resting ECG Reason for Exam: elevated troponin I and ectopy Patient Location: I HR:87 bpm ECG Measurements Heart Rate 87 AXIS AZ 234 P 12 QRSd 165 QRS -53 QT 428 T 101 QTc 515 Conclusion Sinus rhythm...normal P axis, V-rate 50- 99 Prolonged AZ interval...AZ >220, V-rate 50- 90 LVH with secondary repolarization abnormality...multi-LVH criteria, abnrm ST-T Baseline wander in lead(s) I,II,aVR,aVF,V3,V4,V5,V6
--- NOTE | 2023-11-18 09:46 | W.PM.PROGNOT ---
Date of Service Date of service: 11/18/23 Time of Service: 09:46 Assessment and Plan Assessment and plan (1) Sepsis: Status: Acute Assessment and plan: Patient met criteria for sepsis given her acute pyelonephritis, w/ tachycardia (110' to 120), tachypnea (RR 28), leukocytosis 30,000 and BERNARD Blood and urine cultures are pending. She is on Rocephin. She received 1 gm in the ED last night at 1 am and another 1 gm this morning at 8 am and is scheduled for 2 gm q24 begining tonight at 2200. CT of her abdomen and pelvis demonstrated the following: IMPRESSION: 1. Right-sided pyelonephritis/pyelitis with bilateral nephrolithiasis. 2. No bowel obstruction. 3. Cirrhosis and portal hypertension. Note the details regarding her urinary tract: Kidneys and ureters: Left kidney homogeneously enhances. Stable 7 mm left renal lower pole stone. No left ureteral calculus. Heterogeneous right nephrogram with areas of cortical hypodensity. Right kidney is asymmetrically enlarged with asymmetric perinephric stranding. Several right renal medullary calculi. Stable mild right hydronephrosis to the level of the UPJ. No right ureteral calculus. Hypervascular mildly thickened right renal pelvic urothelium. I have reached out to [facility] in [place] to see about transfer as we have no urology over the weekend. I am awaiting their call back. Critical care time spent interviewing and examining the patient, reviewing studies, discussing case with patient's nurse and consulting physicians was 60 minutes Qualifiers: Acute renal failure type: unspecified Sepsis acute organ dysfunction status: with acute organ dysfunction Sepsis type: sepsis due to unspecified organism Severe sepsis acute organ dysfunction type: acute renal failure Severe sepsis shock status: without septic shock Qualified Code(s): A41.9 - Sepsis, unspecified organism; R65.20 - Severe sepsis without septic shock; N17.9 - Acute kidney failure, unspecified (2) Pyelonephritis: Status: Acute (3) Elevated troponin level not due to acute coronary syndrome: Status: Acute Assessment and plan: Per [facility] cards: not NSTEMI but rather type II demand ischemia d/t sepsis. will continue to trend her troponin and repeat her EKG, consider bedside POCUS to evaluate LV function (she has hx of CHF however, her last echo from 12/29/23 demonstrated the following: Conclusion 1. Study was technically limited by patient's body habitus. 2. Left atrium appears mildly dilkated, other chambers normal. 3. Normal LV systolioc function,EF 55-60%; normal RV systolic function. 4. Valves appear grossly normal. No stenoses or significant regurgitation. 5. No pericardial effusion. Prior to that she did have HFPEF (see echo report from 10/09/2016) in which she had diffuse LV hypokinesis w/ LVEF 40%, mild to mod. MR, mild RV systolic dysfunction but no PHTN. Patient currently denies any CP or dyspnea. I will continue monitoring troponin I until there is a definite trend of a decline in her troponin levels; repeat EKG, continue ASA but will not give systemic anticoagulation particularly in the setting of her probably needing cystoscopy and possible right ureteral stent. Follow up echo has been ordered for Sunday. (4) SVT (supraventricular tachycardia): Status: Chronic Assessment and plan: patient has been noted to have an slightly wide complex tachycardia w/out discernible P waves, rate in the E.D. was 126 and it appears to have RBBB and LAFB configuration, She also has had frequent PVC that do not have the same QRS morphology of the PSVT. The ED provider thought she was in a paroxysmal atrial flutter. THis seems to have been associated w/ her severe electrolyte abnormalities of low Mg and low K. This is improving since she got magnesium and potassium. (5) Acute dehydration: Status: Acute Assessment and plan: continue iv hydration w/ NS w/ potassium supplementation, monitor UO, (6) Hypomagnesemia: Status: Acute Assessment and plan: Mg low at 0.7 on admission , repeat level 1.2 after 2 gm replacement; 4 gm has been ordered w/ repeat level this afternoon (7) Hypokalemia: Status: Acute Assessment and plan: K 3.1 > 3.4 after partial replacement; currently receiving further replacement, recheck levels this afternoon. (8) Diabetes: Status: Chronic Assessment and plan: monitor glucose AC/HS and give novolog per sliding scale Qualifiers: Diabetes mellitus complication status: without complication Diabetes mellitus assisted insulin use: with adjunct instructor of women's studies use Diabetes mellitus type: type 2 Qualified Code(s): E11.9 - Type 2 diabetes mellitus without complications; Z79.4 - long-term (current) use of insulin (9) DVT prophylaxis: Status: Acute Assessment and plan: enoxaparin 40 mg SC q12h (d/t her obesity she requires increased dosing) Subjective Subjective Interval history since last seen: Patient still having fevers up to 38.9 as of 7 am, diaphoretic and still having left flank pain w/ radiation into the right abdomen. She has elevated troponin I but they are plateau (began at 533 > 1348 > 2001 > 1966). Per the home housekeeper, [facility] cards was called by the ED last night and was told this is not NSTEMI but demand ischemia from sepsis from her pyelonephritis. ASA and high dose statin was advised but not heparin. Overnight she has had a lot of ectopy bigeminy, but no runs of VT. She denies any chest pain or dyspnea. Exam Narrative Exam Narrative: Morbidly obese female who is diaphoretic and cool but no cyanosis She is alert and oriented, she appears toxic Lungs: clear Heart: tachycardic, she is in a regular rhythm that appears to be wide complex, probably BBB, difficult to discern P waves on tele, therefore will check 12 lead EKG Abdomen: obese, soft, no rebound tenderness or guarding but she has right flank tenderness Extremities: no periperhal cyanosis or edema, feet warm w/ good capillary refill Objective Last Vital Signs Temp 38.5 C H 11/18/23 03:09 Pulse 57 L 11/18/23 06:02 Resp 23 11/18/23 06:02 BP 130/44 L 11/18/23 06:02 Pulse Ox 93 11/18/23 06:02 Laboratory Results - last 24 hr 11/17/23 11/17/23 11/17/23 21:17 23:25 23:52 WBC 30.17 H* RBC 3.88 L Hgb 12.8 Hct 36.9 MCV 95 MCH 33.0 MCHC 34.7 RDW 12.3 Plt Count 172 MPV 10.0 Immature Gran % 0.0 Neutrophils % 78.0 Band Neutrophils % 5 Lymphocytes % 11.0 Monocytes % 6.0 Eosinophils % 0.0 Basophils % 0.0 Nucleated RBC % 0.0 Absolute Neutrophils 25.04 H Absolute Lymphocytes 3.32 Absolute Monocytes 1.81 H Absolute Eosinophils 0.00 Absolute Basophils 0.00 RBC Morphology Normal PT 13.6 H INR 1.4 H APTT 27.5 VBG pH 7.41 VBG pCO2 28 L VBG pO2 54 VBG HCO3 18 L VBG Total CO2 16 L VBG O2 Saturation 89 VBG Base Excess -7 L Sodium 134 L Potassium 3.1 L Chloride 99 Carbon Dioxide 18.4 L Anion Gap 16.6 H BUN 24 H Creatinine 1.7 H Est GFR (CKD-EPI 2020) 33.49 Glucose 298 H Calcium 8.8 Magnesium 0.7 L Total Bilirubin 3.0 H AST 19 ALT 16 Alkaline Phosphatase 80 Troponin I 533 H* 1348 H* NT-Pro-B Natriuret Pep 5494 H Total Protein 8.1 Albumin 3.5 Lipase 15 L Urine Color Yellow Urine Clarity Sl Cloudy Urine pH 5.5 Ur Specific [place] 1.025 Urine Protein >=300 H Urine Ketones Trace H Urine Blood Large H Urine Nitrite Positive H Urine Bilirubin Moderate H Urine Urobilinogen 1.0 H Ur Leukocyte Esterase Small H Urine RBC Urine WBC >50 H Ur Epithelial Cells Not Applicable Urine Crystals Not Applicable Urine Bacteria Not Applicable Urine Mucus Not Applicable Ur Culture Indicated? Yes Urine Glucose Negative COVID-19 Source Nasopharynx SARS-CoV-2 (PCR) Negative Influenza Type A (PCR) Negative Influenza Type B (PCR) Negative RSV (PCR) Negative 11/18/23 11/18/23 11/18/23 05:59 06:25 08:05 WBC 20.67 H RBC 3.76 L Hgb 12.4 Hct 36.4 MCV 97 H MCH 33.0 MCHC 34.1 RDW 12.3 Plt Count 136 MPV 10.9 Immature Gran % Neutrophils % Band Neutrophils % Lymphocytes % Monocytes % Eosinophils % Basophils % Nucleated RBC % Absolute Neutrophils Absolute Lymphocytes Absolute Monocytes Absolute Eosinophils Absolute Basophils RBC Morphology PT 12.3 H INR 1.2 H APTT VBG pH VBG pCO2 VBG pO2 VBG HCO3 VBG Total CO2 VBG O2 Saturation VBG Base Excess Sodium 137 Potassium 3.4 L Chloride 101 Carbon Dioxide 19.9 L Anion Gap 16.1 H BUN 29 H Creatinine 1.6 H Est GFR (CKD-EPI 2020) 36.01 Glucose 267 H Calcium 8.7 Magnesium 1.2 L Cancelled Total Bilirubin 2.7 H AST 22 ALT 15 Alkaline Phosphatase 75 Troponin I 2001 H* 1966 H* NT-Pro-B Natriuret Pep Total Protein 7.7 Albumin 3.3 L Lipase Urine Color Urine Clarity Urine pH Ur Specific [place] Urine Protein Urine Ketones Urine Blood Urine Nitrite Urine Bilirubin Urine Urobilinogen Ur Leukocyte Esterase Urine RBC Urine WBC Ur Epithelial Cells Urine Crystals Urine Bacteria Urine Mucus Ur Culture Indicated? Urine Glucose COVID-19 Source SARS-CoV-2 (PCR) Influenza Type A (PCR) Influenza Type B (PCR) RSV (PCR) Time Spent with Patient Time Spent with Patient: >50 minutes Time was spent: preparing to see the patient(eg.review tests), obtaining and/or reviewing separately otained hiistory, ordering medications,tests, procedures, referring, communicating with other health plant health care technician, indepentently interpreting results, counseling the patient and care coordination
[2023-11-18] MEDS: POTASSIUM CHLORIDE/0.9% NACL 1,000 ML 125 MEQ IV (09:54)
[2023-11-18] MEDS: Metoprolol 25 MG TAB PO (09:59)
[2023-11-18] MEDS: Pantoprazole 40 MG VIAL IVP (10:07)
--- NOTE | 2023-11-18 10:15 | PDOC.CMIN ---
Date of service: 11/18/23 Care Management Initial Assmt Initial Assessment REASON FOR HOSPITALIZATION:: Pyelonephritis, dehydration, elevated troponins PREVIOUS FUNCTIONAL STATUS/SOCIAL/FAMILY SUPPORTS:: Blossom lives alone in [facility]. She receives social security disability income. She is independent at baseline and able to perform all ADLs. CURRENT FUNCTIONAL STATUS:: Sakshi was lying down in bed when talking with CM as RN did her workup. Per MD [facility] is not taking urology transfers so [facility] [place] the other option. Sakshi shared she had been [place] [facility] [place] for a stint and does not wish to return there for the same procedure. exploring options. CM following. ADVANCE DIRECTIVES:: On file [facility] Has patient been provided with info about the portal/API?: Yes Did the patient sign up for the portal?: Yes CODE STATUS:: Full Code INSURANCE COVERAGE / FINANCIAL ISSUES:: Medicare Part A & B FINANCIAL ASST 100 CURRENT HOME/COMMUNITY SERVICES/EQUIPMENT:: None identified PRIMARY CARE PHYSICIAN:: Trev Burr M.D. POTENTIAL DISCHARGE NEEDS:: Follow up with services PATIENT/FAMILY EDUCATION NEEDS:: Review discharge instructions and limitations, discussion of self care needs including Ask Me Three ANTICIPATED BARRIERS TO DISCHARGE:: None TRANSPORTATION:: Transport via private vehicle by family PLAN:: Blossom will discharge home when medically cleared. She will transport via private vehicle by family. She will follow up with community providers and her discharge plan of care as instructed. CM following. [facility] All Active Problems (Updated 11/18/23 @ 10:33 by Quan Singh MD) SVT (supraventricular tachycardia) (Chronic) DVT prophylaxis (Acute) Sepsis (Acute) Acute dehydration (Acute) Hypomagnesemia (Acute) Hypokalemia (Acute) Pyelonephritis (Acute) Nausea & vomiting (Acute) Elevated troponin level not due to acute coronary syndrome (Acute) Atrial flutter, paroxysmal (Acute) Pyelonephritis, acute (Acute) Lipoma (Acute) Degenerative joint disease of right hip (Chronic) S/P total left hip arthroplasty (Acute 04/18/23) Lateral epicondylitis of right elbow (Acute) Hematuria (Acute) Recurrent UTI (Chronic) Flank pain (Acute) Cystocele (Acute 04/13/15) Primary osteoarthritis of both knees (Chronic 07/26/15) Synvisc injections for many years Most recent Synvisc injections: 06/22/2023; 12/11/2022; 06/05/2022; 12/02/2021; 12/11/22; 06/22/23 Incarcerated incisional hernia (Acute) Hyperglycemia (Chronic) Lactic acid acidosis (Acute) Renal insufficiency (Chronic) Leukocytosis (leucocytosis) (Acute) Morbid obesity (Chronic) Hydronephrosis (Acute) Diabetes (Chronic) Right rotator cuff tendinitis (Acute) Steroid injection: 02/07/2021; 04/14/2019 Breast pain, left (Acute) 09/2019. Physical exam unremarkable. No additional testing ordered. Tendinitis of left elbow (Acute) Gross hematuria (Acute) Diarrhea (Acute) UTI (urinary tract infection) (Acute) Vaginal dryness, menopausal (Acute) Osteoarthritis of left hip (Acute) Peripheral neuropathy (Acute) Medical History Osteoarthritis of hips, bilateral Calcium nephrolithiasis Bile acid malabsorption syndrome History of palpitations CAD (coronary artery disease) Vertigo Chronic lower back pain Urinary incontinence Osteoma Hypertension Neuropathy Chronic pain Degenerative joint disease Chronic leg pain Hypomagnesemia Hyperparathyroidism Plantar fasciitis Thyroid nodule Obstructive nephropathy Incisional hernia Herpes simplex Diarrhea Vaginitis Acute stress disorder PTSD (post-traumatic stress disorder) Cirrhosis of liver Other chromoabnormalities of urine Former smoker quit smoking 07/23/16 Depression Cardiomyopathy Urinary incontinence, mixed Obsessive compulsive disorder Vaginal wall prolapse Congestive heart failure Anemia Sleep apnea Sarcoidosis Anxiety Congenital ureterovesical obstruction Diabetes mellitus Kidney stone Essential hypertension Surgical History Tonsillectomy and adenoidectomy Open Carpal Tunnel release Oophrectomy, Both Lithotripsy Abdominal hysterectomy Fracture, Open Treatment Cholecystectomy Family History Mother Diabetes Heart disease Father Personal history of malignant neoplasm Lung Cancer Sister Personal history of malignant neoplasm Thyroid Cancer Social History Smoking/Tobacco Use Status: Former Tobacco Use Quit Date: 07/23/16 Smoking risk assessment performed?: Yes Alcohol Intake: current Alcohol Intake frequency: holidays/special occasions only Drug use: Rarely Substance use type: marijuana Details: edible Housing: apartment Current gender identity: female Do you feel safe at home: Yes Additional Social history: lives alone- will be stay 1-3 days in house here SDOH(Care Management) Screening Will the Patient Participate in the Screening?: Yes Do you worry about having a steady place to live?: no In the past 12 months, have you had to go without electric, gas, oil or water in your home?: no Have you or anyone in your house had to go without enough food to eat?: no Has lack of transportation kept you from medical appointments or from doing things needed for daily living?: no Has anyone in your support network made you feel unsafe for any reason?: no
[2023-11-18 10:20] LABS: Lactate 1.9 mmol/L (0.6-1.4)
--- NOTE | 2023-11-18 11:53 | PHA.REVIEW2 ---
Pharmacy Admission Review Admission Clinical Review Admission Pharmacy Review: DVT prophylaxis (Acute) Sepsis (Acute) Acute dehydration (Acute) Hypomagnesemia (Acute) Hypokalemia (Acute) Pyelonephritis (Acute) Nausea & vomiting (Acute) Elevated troponin level not due to acute coronary syndrome (Acute) Atrial flutter, paroxysmal (Acute) Pyelonephritis, acute (Acute) erythromycin base Allergy (Severe, Verified 11/17/23 21:38) hives Sulfa (Sulfonamide Antibiotics) Allergy (Severe, Verified 11/17/23 21:38) hives sulfamethoxazole [From Bactrim] Allergy (Verified 11/17/23 21:38) Other (See Comment) trimethoprim [From Bactrim] Allergy (Verified 11/17/23 21:38) Other (See Comment) magnesium Adverse Reaction (Severe, Verified 11/17/23 21:38) Diarrhea nitrofurantoin [From Macrobid] Adverse Reaction (Severe, Verified 11/17/23 21:38) depression clomipramine [From Anafranil] Adverse Reaction (Intermediate, Verified 11/17/23 21:38) Other (See Comment) ketamine Adverse Reaction (Intermediate, Verified 11/17/23 21:38) hallucinations Resuscitation Status Full Code Height 5 ft 6 in Weight 135 kg Comments Comments/Follow Ups: Meets sepsis criteria, Fever this morning (IV APAP was only a 1x dose), Elevated WBC, lactate and Bili, positive Troponin x4 and trending up (due to sepsis-not cardiac) potential transfer for urology intervention blood and urine cultures pending Chest xray: no findings CT head:unremarkable CT abdomen: pyelonephritis, Chirrhosis, no bowel obstruction Pharmacy Admission Review Renal Dosing Renal Dosing: BUN 29 mg/dL (7-18) H 11/18/23 05:59 Creatinine 1.6 mg/dL (0.55-1.02) H 11/18/23 05:59 CrCl~50ml/min Medications needing adjustments: Intervened (Gabapentin dose should be reduced from QID to TID...awaiting reply from , does have repeat labs @ 1400 today to recheck SCr) List of meds needing interventions: Lisinopril and Spironolactone ON HOLD Anticoagulation Anticoagulation: Hgb 12.4 g/dL (11.2-15.7) 11/18/23 05:59 Hct 36.4 % (36.0-46.0) 11/18/23 05:59 Plt Count 136 10^3/uL (130-400) 11/18/23 05:59 INR 1.2 (0.9-1.1) H 11/18/23 05:59 Creatinine 1.6 mg/dL (0.55-1.02) H 11/18/23 05:59 DVT Prophylaxis: Reviewed (Enoxaparin BID for BMI>40) Medications: Enoxaparin Opiate Usage Evaluate Pain Scale/Pains Meds: Reviewed (Not using IV Morphine, pain zero) Scheduled Bowel Reg ordered if on Opiates?: No (prn bowel meds) Relevant Labs Relevant Labs: Sodium 137 mmol/L (136-145) 11/18/23 05:59 Potassium 3.4 mmol/L (3.5-5.1) L 11/18/23 05:59 Chloride 101 mmol/L (98-107) 11/18/23 05:59 Magnesium Cancelled 11/18/23 06:25 WBC 20.7 Lactate 2.6 Mag 1.2 D-Dimer 1675 Bili 2.7 Electrolytes, C-Reactive P, ESR: Reviewed (Potassium replaced w/IV bolus' and KCL in IVF....Mag 4gram IV x1 early this morning, repeat labs this afternoon) DM Control DM Control: HgA1c 5.8, no FSBS recorded today DM Control: Reviewed (BG 267) Insulin Dosing, Diabetic Medication: Aspart sliding scale, patient does have home gLargine basal insulin (not ordered at this time) Cardiac Review Cardiac Review: Troponin I 1966 ng/L (< or =60) H* 11/18/23 08:05 NT-Pro-B Natriuret Pep 5494 pg/mL (<300) H 11/17/23 21:17 Metoprolol tartrate 25mg po Q6h with hold parameters Lisinopril & Sprinolactone-on hold NTG sl-prn Just now starting Nor-epi infusion, not sure what most recent vitals are BP, HR, EF%: Reviewed (BP 106/52 (last evening 92/62), HR>100...with some very lows in the 50's this morning) QTc Review QTc: N/A (EKG taken, not reported at this time) IV to PO Switch IV Medications: Reviewed (IV Antibioitic, IV Morphine) Home Meds Home Med List reviewed: Reviewed (not sure about accuracy) Relevent Home Meds Not ordered & why?: Coreg-ordered but then cancelled Celebrex-BERNARD, Estrace vag cream-not needed on this admission gLargine insulin not ordered Metformin & Ozempic-BERNARD Current Meds Current Medication Order Review: Reviewed (Atorvastatin dose increased, likely because of troponin level) Pharmacy Antibiotic Review Relevant Labs: Urinalysis positive, WBC>50, Blood culture pending Pharmacy Antibiotic Activity: Reviewed, no change (Rocephin) Comments Comments/Follow Ups: Meets sepsis criteria, Fever this morning (IV APAP was only a 1x dose), Elevated WBC, lactate and Bili, positive Troponin x4 and trending up (due to sepsis-not cardiac) potential transfer for urology intervention blood and urine cultures pending Chest xray: no findings CT head:unremarkable CT abdomen: pyelonephritis, Chirrhosis, no bowel obstruction
[2023-11-18] MEDS: Lactated Ringers 500 ML 1000 ML IV (12:36)
[2023-11-18] MEDS: Norepinephrine in D5W 8 MG/250 ML BAG 18.75 MG IV (13:14)
[2023-11-18 14:16] LABS: Lactate 2.1 mmol/L (0.6-1.4)
[2023-11-18 14:38] LABS: Anion Gap 11.5 mmol/L (3-11); BUN 31 mg/dL (7-18); CO2 21.5 mmol/L (21.0-32.0); CREATININE 1.9 mg/dL (0.55-1.02); Calcium 8.4 mg/dL (8.5-10.1); Chloride 102 mmol/L (98-107); Glucose 264 mg/dL (74-106); Sodium 135 mmol/L (136-145)
[2023-11-18 14:39] LABS: Magnesium 2.3 mg/dL (1.8-2.4)
[2023-11-18 14:40] LABS: Potassium 4.4 mmol/L (3.5-5.1)
[2023-11-18 14:48] LABS: Troponin I 1277 ng/L (< or =60)
--- NOTE | 2023-11-18 15:10 | W.ANESVAS ---
Arterial Line Placement Date Performed: 11/18/23 Procedure Time: 14:46 Procedure Location: Intensive Care Unit Requesting Provider: Quan Singh Timeout Performed: Yes Sedation Given (Indicate Dose Given): No Sedation given Patient Mental Status: Awake Sterility: Hand Hygiene, Surgical Cap, Surgical Mask, Sterile Gloves, Sterile Drape/Sheet and Chlorhexidine Laterality: Left Insertion Site: Radial Arterial Line Catheter: 20G Arrow Arterial Line Procedure: 1% Lidocaine to skin and subcutaneous tissue with 25g needle, Vessel accessed with catheter over needle, Guidewire placed with ease, Catheter placed without resistance and Guidewire removed Dressing: Tegaderm Applied, Mastisol Used and Other (Stat lock) Ultrasound: Not Used Number of Attempts (See previous attempts in note section): 1 Procedure Tolerated: No Complications and Patient tolerated well Procedure Outcome: Successful Performed By: Kelsey Farooq
[2023-11-18] MEDS: Ondansetron 4 MG/2 ML VIAL IVP (15:50)
[2023-11-18] MEDS: POTASSIUM CHLORIDE/0.9% NACL 1,000 ML 200 MEQ IV (16:23)
[2023-11-18] MEDS: Rocuronium 50 MG/5 ML SYR 100 MG IVP (19:52)
--- NOTE | 2023-11-18 20:15 | DI.RAD_ITS ---
Exam(s) XR PORTABLE CHEST AP POST LINE EXAM: XR PORTABLE CHEST AP POST LINE CLINICAL HISTORY: intubated. TECHNIQUE: 2D digital imaging was performed. COMPARISON: CR,XR XR PORTABLE CHEST AP from 11/17/2023 FINDINGS: Single AP portable view. Patient is now intubated. Distal tip of the endotracheal tube is 4 cm above the tod. There is a right jugular central line. Its distal tip is at the SVC-RA junction. Heart size upper normal. Mediastinum appears somewhat widened but patient is rotated to the right an d this may be spurious. There is some infiltrate in the right lower lobe. Also left lower lobe. No large pleural effusions. IMPRESSION: Bilateral lower lobe infiltrates. Possible aspiration. ET tube and central line in satisfactory position. DATA REPOSITORY: RADIATION DOSE DELIVERED:
[2023-11-18] MEDS: Amiodarone in Dextrose 360 MG/200 ML BAG 33.3 MG IV (20:20)
--- NOTE | 2023-11-18 20:30 | DI.RAD_ITS ---
Exam(s) XR PORTABLE CHEST AP POST LINE EXAM: XR PORTABLE CHEST AP POST LINE CLINICAL HISTORY: Post NG tube/ETT placement. TECHNIQUE: 2D digital imaging was performed. COMPARISON: CR,XR XR PORTABLE CHEST AP POST LINE from 11/18/2023 FINDINGS: Single AP portable view. ET tube distal tip remains 4 cm above the tod. Right jugular central line distal tip at SVC-RA ju nction. There is an insertion of an NG tube but it is coiled in the esophagus at the junction of the proximal and mid thirds. Heart size unchanged. Mediastinum unchanged. Infiltrates noted in the right lower lobe and left lower lobe similar to previous today. Possible as piration. No obvious pleural effusions. IMPRESSION: NG tube is coil-looped in the main midesophagus and returning cephalad towards the mouth.These to be reposition. Right lower lobe infiltrate. Possible mild left lower lobe infiltrate. DATA REPOSITORY: RADIATION DOSE DELIVERED:
--- NOTE | 2023-11-18 20:30 | DI.RAD_ITS ---
Exam(s) XR PORTABLE CHEST AP POST LINE EXAM: XR PORTABLE CHEST AP POST LINE CLINICAL HISTORY: NGT re-adjusted; check placement. TECHNIQUE: 2D digital imaging was performed. COMPARISON: CR,XR XR PORTABLE CHEST AP POST LINE from 11/18/2023 FINDINGS: Single AP portable view. The NG tube has been repositioned and is seen coursing into the stomach but its distal tip is beyond the field of view of this study and therefore cannot be assessed. Patient remains intubated with endotracheal tube tip 4 cm above the tod and central line distal ti p is at the SVC-RA junction. Heart size and mediastinum unchanged. Right lower lobe infiltrate. Left lower lobe infiltrate. No obvious pleural effusions. No pneumoth orax. No fractures. Chest leads in place IMPRESSION: Improved position of the NG tube but distal tip is beyond the field of view of this image. Recommend follow-up KUB of the abdomen for determination of the position of the distal tip of the NG tube. Bilateral lower lobe infiltrates, right larger than left. Probable aspiration. DATA REPOSITORY: RADIATION DOSE DELIVERED:
--- NOTE | 2023-11-18 20:33 | W.PM.DS.N ---
Date of service: 11/18/23 Time of Service: 20:33 DS: Diagnosis Discharge Diagnosis (1) Sepsis: Status: Acute (2) Pyelonephritis: Status: Acute (3) Elevated troponin level not due to acute coronary syndrome: Status: Acute (4) SVT (supraventricular tachycardia): Status: Chronic (5) Acute dehydration: Status: Acute (6) Hypomagnesemia: Status: Acute (7) Hypokalemia: Status: Acute (8) Diabetes: Status: Chronic (9) DVT prophylaxis: Status: Acute Discharge Plan Disposition Condition: Stable Discharge Details Reason For Visit: Pyelonephritis, Dehydration, Elevated troponins Admit Date/Time: 11/18/23 01:36 Admit Provider: Ted Raman Attending Provider: Ted Raman Primary Care Provider: Trev Burr Hospital Course Hospital Course: Patient admitted 11/16 with pyelonephritis, on Rocephin pending cultures, with intermittent need for pressors. Elevated troponin noted earlier without ischemic EKG changes, felt likely due to ischemia; troponins peaked approx 1999. This evening patient became acutely unresponsive then went into asystolic arrest. CPR initiated. Patient had spontaneous return of rhythm in 1-2 minutes, but had similar episodes of asytole over the course of the next 30-40 minutes. Patient was then preemptively intubated, Amiodarone begun by bolus then drip, EKG shows ST elevations I, aVL with reciprocal changes precordium, c/w STEMI, along with third degree block. Patient currently on external pacer, triple lumen central line placed. Patient ordered for ASA, Plavix and heparin. Case reviewed with Cardiology [facility] and accepted for transfer to service of Dr. Arambula. Home Meds and New Rx's Prescriptions: No Action multivitamin Tablet 1 tab PO DAILY insulin glargine [Basaglar KwikPen U-100 Insulin] 100 unit/mL (3 mL) insulin pen 15 unit subcut BID Patient Comments: 15 Q AM, 13 Q PM vitamin B complex [B Complex-Vitamin B12] Tablet 1 tab PO DAILY estradiol [Estrace] 0.01 % (0.1 mg/gram) cream 1 appful vaginal DAILY Qty: 42.5 4RF Rx Instructions: daily for 2 weeks then twice weekly Ozempic 1 mg/dose (2 mg/1.5 mL) pen injector 2 mg subcut QWEEK acetaminophen 500 mg tablet 1,000 mg PO ONCE ibuprofen 200 mg capsule 800 mg PO Q6H PRN acyclovir 5 % cream 1 applic TP ONCE PRN diclofenac sodium [Voltaren] 1 % gel 2 gm TP QID PRN amitriptyline 50 mg tablet 50 mg PO QPM ferrous sulfate [Iron (ferrous sulfate)] 325 mg (65 mg iron) tablet 325 mg PO DAILY celecoxib 200 mg capsule 200 mg PO BID nitroglycerin 0.4 MG tablet, sublingual 0.4 mg Sublingual PRN Patient Comments: 05/04/14: Pt carries NTG but has never had to use it. PG insulin aspart U-100 [Novolog FlexPen U-100 Insulin] 100 unit/mL (3 mL) insulin pen 15 unit subcut TID gabapentin 600 mg tablet 600 mg PO QID valacyclovir 1 gram tablet 1,000 mg PO DAILY clotrimazole-betamethasone 1-0.05 % cream 1 applic topical BID 10 Days Qty: 15 2RF atorvastatin 10 mg tablet 10 mg PO DAILY levalbuterol tartrate 45 mcg/actuation HFA aerosol inhaler 2 inh inhalation Q6H PRN Rx Instructions: Q4-6H PRN spironolactone 25 mg tablet 25 mg PO DAILY Ozempic 0.25 mg or 0.5 mg (2 mg/3 mL) pen injector 0.25 mg subcut QWEEK Rx Instructions: for 4 weeks metformin 1,000 mg tablet 1,000 mg PO BID mupirocin calcium 2 % cream 1 applic topical BID Qty: 30 0RF loratadine 10 mg Tablet 10 mg PO DAILY lisinopril 5 mg Tablet 5 mg PO DAILY carvedilol 3.125 mg tablet 12.5 mg PO BID DS: Summary Time Spent with Patient providing and/or coordinating discharge services: Greater than 30 minutes Status at Discharge Functional status at discharge: bed bound Overall status at discharge: other Mental Status: other Speech and Movement: other Mood: other Affect: other Quality:SDOH Health Related Social Needs: No Data to Display Exam Psych Mental Status: other Speech and Movement: other Mood: other Affect: other DS: Data Vitals/I&O Vitals and I&O: Vital Signs Temperature 38.9 C H 11/18/23 18:28 Temperature Source Tympanic 11/18/23 18:28 Pulse 54 L 04/28/24 18:28 Pulse 76 11/18/23 13:40 Respiratory Rate 25 H 11/18/23 18:28 Respiratory Effort Normal, Non-Labored 11/18/23 18:28 Respiratory Depth Normal 11/18/23 18:28 Respiratory Pattern Normal 11/18/23 18:28 Blood Pressure 158/39 H 11/18/23 18:28 Blood Pressure Mean 78 11/18/23 18:28 Blood Pressure Position Supine 11/18/23 13:39 Pulse Oximetry 92 11/18/23 18:28 Oxygen Delivery Method Room Air 11/18/23 18:28 Oxygen Flow Rate 0 11/18/23 18:28 Pain Level 0 11/18/23 18:28 Intake & Output 11/17/23 11/18/23 11/18/23 23:59 11:59 23:59 Intake Total 1010 / 1010 2035.416 / 3817.291 1781.875 / 3817.291 Output Total 200 / 200 400 / 550 150 / 550 Balance 810 / 810 1635.416 / 3267.291 1631.875 / 3267.291 Weight 139.706 kg 135 kg Intake: IV 1010 / 1010 1985.416 / 3767.291 1781.875 / 3767.291 Oral 50 / 50 Output: Urine 200 / 200 250 / 400 150 / 400 Emesis 150 / 150 Other: Urine Color Yellow Dark Nathanael Urine Appearance Cloudy Comment elliott present and draining elliott to gravity draining dark nathanael urine Emesis Description Bile Bile Data Completed and Pending Labs on day of discharge: Labs from last 24 hours 11/18/23 11/18/23 11/18/23 14:00 10:15 08:05 WBC RBC Hgb Hct MCV MCH MCHC RDW Plt Count MPV Immature Gran % Neutrophils % Band Neutrophils % Lymphocytes % Monocytes % Eosinophils % Basophils % Nucleated RBC % Absolute Neutrophils Absolute Lymphocytes Absolute Monocytes Absolute Eosinophils Absolute Basophils RBC Morphology PT INR APTT VBG pH VBG pCO2 VBG pO2 VBG HCO3 VBG Total CO2 VBG O2 Saturation VBG Base Excess VBG Lactate 2.1 H 1.9 H Sodium 135 L Potassium 4.4 D Chloride 102 Carbon Dioxide 21.5 Anion Gap 11.5 H BUN 31 H Creatinine 1.9 H Est GFR (CKD-EPI 2020) 29.30 Glucose 264 H Calcium 8.4 L Magnesium 2.3 Total Bilirubin AST ALT Alkaline Phosphatase Troponin I 1277 H* 1966 H* NT-Pro-B Natriuret Pep Total Protein Albumin Lipase Urine Color Urine Clarity Urine pH Ur Specific Sycamore Urine Protein Urine Ketones Urine Blood Urine Nitrite Urine Bilirubin Urine Urobilinogen Ur Leukocyte Esterase Urine RBC Urine WBC Ur Epithelial Cells Urine Crystals Urine Bacteria Urine Mucus Ur Culture Indicated? Urine Glucose COVID-19 Source SARS-CoV-2 (PCR) Influenza Type A (PCR) Influenza Type B (PCR) RSV (PCR) 11/18/23 11/18/23 11/17/23 06:25 05:59 23:52 WBC 20.67 H RBC 3.76 L Hgb 12.4 Hct 36.4 MCV 97 H MCH 33.0 MCHC 34.1 RDW 12.3 Plt Count 136 MPV 10.9 Immature Gran % Neutrophils % Band Neutrophils % Lymphocytes % Monocytes % Eosinophils % Basophils % Nucleated RBC % Absolute Neutrophils Absolute Lymphocytes Absolute Monocytes Absolute Eosinophils Absolute Basophils RBC Morphology PT 12.3 H INR 1.2 H APTT VBG pH VBG pCO2 VBG pO2 VBG HCO3 VBG Total CO2 VBG O2 Saturation VBG Base Excess VBG Lactate Sodium 137 Potassium 3.4 L Chloride 101 Carbon Dioxide 19.9 L Anion Gap 16.1 H BUN 29 H Creatinine 1.6 H Est GFR (CKD-EPI 2020) 36.01 Glucose 267 H Calcium 8.7 Magnesium Cancelled 1.2 L Total Bilirubin 2.7 H AST 22 ALT 15 Alkaline Phosphatase 75 Troponin I 2001 H* 1348 H* NT-Pro-B Natriuret Pep Total Protein 7.7 Albumin 3.3 L Lipase Urine Color Urine Clarity Urine pH Ur Specific Sycamore Urine Protein Urine Ketones Urine Blood Urine Nitrite Urine Bilirubin Urine Urobilinogen Ur Leukocyte Esterase Urine RBC Urine WBC Ur Epithelial Cells Urine Crystals Urine Bacteria Urine Mucus Ur Culture Indicated? Urine Glucose COVID-19 Source Nasopharynx SARS-CoV-2 (PCR) Negative Influenza Type A (PCR) Negative Influenza Type B (PCR) Negative RSV (PCR) Negative 11/17/23 11/17/23 23:25 21:17 WBC 30.17 H* RBC 3.88 L Hgb 12.8 Hct 36.9 MCV 95 MCH 33.0 MCHC 34.7 RDW 12.3 Plt Count 172 MPV 10.0 Immature Gran % 0.0 Neutrophils % 78.0 Band Neutrophils % 5 Lymphocytes % 11.0 Monocytes % 6.0 Eosinophils % 0.0 Basophils % 0.0 Nucleated RBC % 0.0 Absolute Neutrophils 25.04 H Absolute Lymphocytes 3.32 Absolute Monocytes 1.81 H Absolute Eosinophils 0.00 Absolute Basophils 0.00 RBC Morphology Normal PT 13.6 H INR 1.4 H APTT 27.5 VBG pH 7.41 VBG pCO2 28 L VBG pO2 54 VBG HCO3 18 L VBG Total CO2 16 L VBG O2 Saturation 89 VBG Base Excess -7 L VBG Lactate Sodium 134 L Potassium 3.1 L Chloride 99 Carbon Dioxide 18.4 L Anion Gap 16.6 H BUN 24 H Creatinine 1.7 H Est GFR (CKD-EPI 2020) 33.49 Glucose 298 H Calcium 8.8 Magnesium 0.7 L Total Bilirubin 3.0 H AST 19 ALT 16 Alkaline Phosphatase 80 Troponin I 533 H* NT-Pro-B Natriuret Pep 5494 H Total Protein 8.1 Albumin 3.5 Lipase 15 L Urine Color Yellow Urine Clarity Sl Cloudy Urine pH 5.5 Ur Specific Sycamore 1.025 Urine Protein >=300 H Urine Ketones Trace H Urine Blood Large H Urine Nitrite Positive H Urine Bilirubin Moderate H Urine Urobilinogen 1.0 H Ur Leukocyte Esterase Small H Urine RBC Urine WBC >50 H Ur Epithelial Cells Not Applicable Urine Crystals Not Applicable Urine Bacteria Not Applicable Urine Mucus Not Applicable Ur Culture Indicated? Yes Urine Glucose Negative COVID-19 Source SARS-CoV-2 (PCR) Influenza Type A (PCR) Influenza Type B (PCR) RSV (PCR) 11/18/23 08:20 Blood Blood Culture - Pending 11/18/23 08:05 Blood Blood Culture - Pending 11/17/23 23:25 Urine - Reflex from Urine Culture - Pending Preliminary micro results at discharge 11/18/23 08:20 Blood Culture - Pending Blood 11/18/23 08:05 Blood Culture - Pending Blood 11/17/23 23:25 Urine Culture - Pending Urine - Reflex from [facility] All Active Problems (Updated 11/18/23 @ 10:33 by Quan Singh MD) SVT (supraventricular tachycardia) (Chronic) DVT prophylaxis (Acute) Sepsis (Acute) Acute dehydration (Acute) Hypomagnesemia (Acute) Hypokalemia (Acute) Pyelonephritis (Acute) Nausea & vomiting (Acute) Elevated troponin level not due to acute coronary syndrome (Acute) Atrial flutter, paroxysmal (Acute) Pyelonephritis, acute (Acute) Lipoma (Acute) Degenerative joint disease of right hip (Chronic) S/P total left hip arthroplasty (Acute 04/18/23) Lateral epicondylitis of right elbow (Acute) Hematuria (Acute) Recurrent UTI (Chronic) Flank pain (Acute) Cystocele (Acute 04/13/15) Primary osteoarthritis of both knees (Chronic 07/26/15) Synvisc injections for many years Most recent Synvisc injections: 06/22/2023; 12/11/2022; 06/05/2022; 12/02/2021; 12/11/22; 06/22/23 Incarcerated incisional hernia (Acute) Hyperglycemia (Chronic) Lactic acid acidosis (Acute) Renal insufficiency (Chronic) Leukocytosis (leucocytosis) (Acute) Morbid obesity (Chronic) Hydronephrosis (Acute) Diabetes (Chronic) Right rotator cuff tendinitis (Acute) Steroid injection: 02/07/2021; 04/14/2019 Breast pain, left (Acute) 09/2019. Physical exam unremarkable. No additional testing ordered. Tendinitis of left elbow (Acute) Gross hematuria (Acute) Diarrhea (Acute) UTI (urinary tract infection) (Acute) Vaginal dryness, menopausal (Acute) Osteoarthritis of left hip (Acute) Peripheral neuropathy (Acute) Medical History Osteoarthritis of hips, bilateral Calcium nephrolithiasis Bile acid malabsorption syndrome History of palpitations CAD (coronary artery disease) Vertigo Chronic lower back pain Urinary incontinence Osteoma Hypertension Neuropathy Chronic pain Degenerative joint disease Chronic leg pain Hypomagnesemia Hyperparathyroidism Plantar fasciitis Thyroid nodule Obstructive nephropathy Incisional hernia Herpes simplex Diarrhea Vaginitis Acute stress disorder PTSD (post-traumatic stress disorder) Cirrhosis of liver Other chromoabnormalities of urine Former smoker quit smoking 07/23/16 Depression Cardiomyopathy Urinary incontinence, mixed Obsessive compulsive disorder Vaginal wall prolapse Congestive heart failure Anemia Sleep apnea Sarcoidosis Anxiety Congenital ureterovesical obstruction Diabetes mellitus Kidney stone Essential hypertension Surgical History Tonsillectomy and adenoidectomy Open Carpal Tunnel release Oophrectomy, Both Lithotripsy Abdominal hysterectomy Fracture, Open Treatment Cholecystectomy Family History Mother Diabetes Heart disease Father Personal history of malignant neoplasm Lung Cancer Sister Personal history of malignant neoplasm Thyroid Cancer Social History Smoking/Tobacco Use Status: Former Tobacco Use Quit Date: 07/23/16 Smoking risk assessment performed?: Yes Alcohol Intake: current Alcohol Intake frequency: holidays/special occasions only Drug use: Rarely Substance use type: marijuana Details: edible Housing: apartment Current gender identity: female Do you feel safe at home: Yes Additional Social history: lives alone- will be stay 1-3 days in house here Time Spent with Patient Time Spent with Patient: >85 minutes Time was spent: preparing to see the patient(eg.review tests), obtaining and/or reviewing separately otained hiistory, ordering medications,tests, procedures, referring, communicating with other health progressive care unit registered nurse, indepentently interpreting results, care coordination and other
[2023-11-18] MEDS: Aspirin 300 MG SUPP PR (20:57)
[2023-11-18] MEDS: Clopidogrel 300 MG TAB PO (20:57)
[2023-11-18 21:15] LABS: Lactate 3.5 mmol/L (0.6-1.4)
[2023-11-18 21:17] LABS: BE -15 mmol/L (-2-3); HCO3 15 mmol/L (22-26); pCO2 51 mmHg (35-45); pO2 88 mmHg (80-105); sO2 93 % (95-98); tCO2 15 mmol/L (23-27)
[2023-11-18 21:18] LABS: FIO2 100 %; Site Arterial Line
[2023-11-18 21:20] LABS: pH 7.08 (7.35-7.45)
[2023-11-18 21:29] LABS: Anion Gap 13.4 mmol/L (3-11); CO2 17.6 mmol/L (21.0-32.0); Chloride 100 mmol/L (98-107); Magnesium 2.1 mg/dL (1.8-2.4); Potassium 4.7 mmol/L (3.5-5.1); Sodium 131 mmol/L (136-145)
[2023-11-18] MEDS: Heparin in 0.45% NaCl 25,000 UNIT/250 ML BAG 10 UNIT IV (21:36)
--- NOTE | 2023-11-18 21:37 | DI.VRAD_ITS ---
PROCEDURE INFORMATION: Exam: XR Chest Exam date and time: 11/18/2023 8:32 PM Age: 62 years old Clinical indication: Device placement; Other: Post intubation/central line TECHNIQUE: Imaging protocol: Radiologic exam of the chest. Views: 1 view. COMPARISON: CR XR PORTABLE CHEST AP 17/11/2023 21:47 FINDINGS: Limitations: Patient positioning limits evaluation. Tubes, catheters and devices: The endotracheal tube is 4 cm above the tod. There is a right internal jugular central venous line with its tip at the cavoatrial junction. Monitoring leads and defibrillation paddles overlie the thoracic wall. Lungs: Left infrahilar consolidation. Pleural spaces: No pleural effusion or pneumothorax. Heart/Mediastinum: Normal in size. Bones/joints: No acute fracture is identified. IMPRESSION: 1. A tracheal tube and right central venous line in position as above. 2. Left infrahilar consolidation. This may represent atelectasis or in the appropriate clinical setting, pneumonia. Dictated and Authenticated by: Coy Coronado MD. Ordering:JANNETH Jean MD
--- NOTE | 2023-11-18 21:42 | DI.VRAD_ITS ---
PROCEDURE INFORMATION: Exam: XR Chest Exam date and time: 11/18/2023 8:46 PM Age: 62 years old Clinical indication: Other: Intubation, post ng tube/ett placement TECHNIQUE: Imaging protocol: Radiologic exam of the chest. Views: 1 view. COMPARISON: CR XR PORTABLE CHEST AP POST LINE 18/11/2023 20:38 FINDINGS: Limitations: Patient positioning limits evaluation. Tubes, catheters and devices: The NG tube is seen coursing into the stomach, its tip outside the field of view. Endotracheal tube 4 cm above the tod. EKG monitoring leads and a defibrillation paddle overlie the thoracic wall. Lungs: Right infrahilar opacity. Pleural spaces: No pleural effusion or pneumothorax. Heart/Mediastinum: Normal in size. Bones/joints: No acute fracture is identified. IMPRESSION: 1. The NG tube is seen coursing into the stomach, its tip outside the field of view. 2. Right infrahilar opacity. This may represent atelectasis or in the appropriate clinical setting, pneumonia. Dictated and Authenticated by: Coy Coronado MD. Ordering:JANNETH Jean MD
[2023-11-18] MEDS: Lactated Ringers 1,000 ML 75 ML IV (21:50)
--- NOTE | 2023-11-18 21:51 | DI.VRAD_ITS ---
PROCEDURE INFORMATION: Exam: XR Chest Exam date and time: 11/18/2023 8:38 PM Age: 62 years old Clinical indication: Other: Post ng tube/ett placement TECHNIQUE: Imaging protocol: Radiologic exam of the chest. Views: 1 view. COMPARISON: XR PORTABLE CHEST AP POST LINE 18/11/2023 20:32 FINDINGS: Tubes, catheters and devices: There is a nasogastric tube looping in the mid esophagus and returning cephalad toward the mouth. Endotracheal tube 5 cm above the tod. Right internal jugular central venous line with its tip at the cavoatrial junction. EKG monitoring leads and a defibrillation paddle overlie the thoracic wall. Lungs: Right infrahilar consolidation. Pleural spaces: No pleural effusion or pneumothorax. Heart/Mediastinum: Normal in size. Bones/joints: No acute fracture is identified. IMPRESSION: 1. Nasogastric tube looping in the mid esophagus and returning cephalad toward the mouth. 2. Right infrahilar consolidation. This may represent atelectasis or in the appropriate clinical setting, pneumonia. Dictated and Authenticated by: Coy Coronado MD. Ordering:JANNETH Jean MD
--- NOTE | 2023-11-18 22:49 | ED.PROG_ITS ---
Date of service: 11/18/23 Time of Service: 22:49 Medical Decision Making CODE MANOHAR was called, myself and to emergency department nurses went up to the ICU to offer assistance. Patient had an episode of unresponsiveness, but by the time we arrived her responsiveness had returned, vital signs appear to be relat ively stable, she had already been started on Levophed. I offered my services to Dr. Landry to assist in what ever way he felt best. Shortly thereafter the patient had 2 more repeat episodes, and her heart rate began to slow to bradycardia and she seemed to become quite a bit more unresponsive. The decision was made to intubate. Patient was intubated successfully without complication or challenge. The patient only had a single peripheral IV, the decision was made to get definitive vascular access, I elected to place a triple-lumen in the right IJ, during the procedure the patient again arrested but did not have a spontaneous return of her heart. Patient was coded and then responded with 1 round of epinephrine and atropine. Immediately after this the triple-lumen was placed without complication. Patient now seems to demonstrate on the monitor but appears to be junctional rhythm versus 3 degree heart block. The decision was made to overdrive pace. The patient had already been started on an amiodarone drip after receiving a 150 mg bolus and this did not seem to be improving her symptoms. Overdrive pacing was successful with a heart rate at 80. Nursing staff was unable to get NG tube placement, so I placed NG tube with visual confirmation using glide scope. After procedures were completed, the patient's blood pressure remained stable on Levophed. Her heart rate remained stable on overdrive transcutaneous pacing. Her oxygen remained stable on her ventilated status. No additional services were requested. Continued care management was transitioned to Dr. Landry. FINDINGS: Limitations: Patient positioning limits evaluation. Tubes, catheters and devices: The NG tube is seen coursing into the stomach, its tip outside the field of view. Endotracheal tube 4 cm above the tod. EKG monitoring leads and a defibrillation paddle overlie the thoracic wall. Lungs: Right infrahilar opacity. Pleural spaces: No pleural effusion or pneumothorax. Heart/Mediastinum: Normal in size. Bones/joints: No acute fracture is identified. IMPRESSION: 1. The NG tube is seen coursing into the stomach, its tip outside the field of view. 2. Right infrahilar opacity. This may represent atelectasis or in the appropriate clinical setting, pneumonia. Thank you for allowing us to participate in the care of your patient. Quality:[facility] Health Related Social Needs: No Data to Display Procedures Central Line Placement Right IJ: Time Out Performed: Yes Patient Placed on Monitor/Pulse Ox: Yes MD Prep: mask, gown and gloves Central Line Prep: Chlorhexidine scrub Ultrasound Used for Placement: Yes Central Line Lumen Inserted: triple Post Procedure: good blood return, all ports aspirated, flushed, capped and sutured in place with 2-0 silk Post Procedure X-Ray: tip of catheter in good position Patient Tolerated Procedure: well and no complications Complications: none Intubation Time out performed: Yes sedative: Etomidate Mg Given: 20 paralytic: Rocuronium Mg Given: 100 Laryngoscope: fiberoptic video scope Assist Device Used: fiberoptic device ET Tube Size: 7.5 ET Tube Uncuffed: No Tube Secured Depth (cm): 22 Tube Secured Location: teeth Tube Placement Confirmation: visualized tube passing through cords, equal breath sounds bilaterally, no breath sounds over epigastrum and confirmation by capnometry Patient Tolerated Procedure: well and no complications Intubation Complications: none Critical Care Time Critical Care Time Critical Care Time: Yes Total Critical Care Time: 30 Attestation: Upon my evaluation, this patient had a high probability of imminent or life- threatening deterioration, which required my direct attention, intervention, and personal management. I have personally provided 30 minutes of critical care time exclusive of time spent on separately billable procedures. Time includes review of laboratory data, radiology results, discussion with consultants, and monitoring for potential decompensation. Interventions were performed as documented. Sign Out Sign Out Data: Sign Out Comment: pyelonephritis, BERNARD, hypomag, leading to arrhythmia, likely demand ischemia resultant in elevated trop; admission to [facility] pending cardiology consultation Last updated by Elvin Ugalde MD at 11/18/23 00:35 Discharge Plan Disposition Patient Disposition: Admit to [facility] Condition: Stable Discharge Details Clinical Impression: Pyelonephritis, Hypokalemia, Hypomagnesemia Admit Date/Time: 11/18/23 01:36 Admit Provider: Ted Raman Attending Provider: Ted Raman Primary Care Provider: Trev Burr ED Provider: Yuni Bedolla Discharge Data Discharge Date/Time-TO BE ENTERED AT DEPARTURE: 11/18/23 02:30
[2023-11-18 23:29] LABS: BE -13 mmol/L (-2-3); HCO3 16 mmol/L (22-26); pCO2 48 mmHg (35-45); pO2 111 mmHg (80-105); sO2 97 % (95-98); tCO2 16 mmol/L (23-27)
[2023-11-18] MEDS: cefTRIAXone 2 GM/50 ML BAG IVPB (23:30)
[2023-11-18 23:31] LABS: FIO2 100 %; Site Arterial Line; pH 7.14 (7.35-7.45)
[2023-11-18] MEDS: Sodium Bicarbonate 50 MEQ/50 ML SYR IVP (23:52)
[2023-11-19] VITALS (14 sets, daily range): BP systolic 99; BP diastolic 46; PULSE 0–81; RESP 23–39; O2SAT 94–98
[2023-11-19] MEDS: Amiodarone in Dextrose 360 MG/200 ML BAG 33.3 MG IV (00:11)
[2023-11-19 00:19] LABS: Lactate 2.9 mmol/L (0.6-1.4)
[2023-11-19 00:29] LABS: BE -12 mmol/L (-2-3); HCO3 16 mmol/L (22-26); pCO2 37 mmHg (35-45); pH 7.23 (7.35-7.45); pO2 85 mmHg (80-105); sO2 96 % (95-98); tCO2 15 mmol/L (23-27)
[2023-11-19 00:30] LABS: FIO2 85 %; Site Arterial Line
[2023-11-19 00:32] LABS: Anion Gap 12.5 mmol/L (3-11); CO2 19.5 mmol/L (21.0-32.0); Chloride 100 mmol/L (98-107); PTT Activated 55.5 sec (23.6-32.8); Potassium 5.2 mmol/L (3.5-5.1); Sodium 132 mmol/L (136-145)
[2023-11-19] MEDS: PROPOFOL 1,000 MG/100 ML BTL 20.25 MG IV (00:33)
[2023-11-19] MEDS: Lactated Ringers 1,000 ML 500 ML IV (00:35)
[2023-11-19] MEDS: Etomidate 20 MG/10 ML VIAL IVP (00:41)
[2023-11-19] MEDS: Atropine 1 MG/10 ML SYRINGE IVP (00:42)
[2023-11-19] MEDS: ePHEDrine 50 MG/ML VIAL IVP (00:45)
[2023-11-19] MEDS: Normal Saline Flush 10 ML SYR IVP (00:53)
[2023-11-19] MEDS: Lactated Ringers 1,000 ML 75 ML IV (01:04)
[2023-11-19] MEDS: Norepinephrine in D5W 8 MG/250 ML BAG 250 MG IV (01:21)
[2023-11-19] MEDS: Norepinephrine in D5W 8 MG/250 ML BAG 65.625 MG IV (01:32)
--- NOTE | 2023-11-19 02:28 | W.ED.EVENT ---
Date of service: 11/19/23 Time of Service: 02:10 Event Note: Code gopi called on ICU pt; patient well known to me. Currently intubated, central line in place, and transcutenously paced. See prior documentation for prior clinical course including prior arrest. [facility] at bedside and prepping patient for transport. Upon my arrival to the bedside patient had regained pulses, had adequate pressure, good ET CO2, good O2 sat. Hospitalist Dr. Landry also presented to bedside. Shortly after my arrival patient again lost arterial line waveform and pulses, at that time noted that trans-cutaneous pacer was not firing. Chest compressions started. Leads adjusted by [facility] and patient regained pulses/blood pressure/end tidal. This episode of compressions ~30 seconds. [facility] continuing preparations for transport; I observed patient at bedside for 15 minutes after she regained pulses with no further episodes of loss of capture or loss of pulse/waveform. Considered placing TVP however with good capture now, delay in transfer to definitive care likely to cause more harm. Dr. Landry remains at bedside, this provider returned to the ED. Time Spent with Patient Time spent in critical care(minutes): 15 Time Spent Included: Documenting critically ill care, Time at immediate bedside and Discussing critically ill care with other medical staff
--- NOTE | 2023-11-19 03:37 | NUR.NOTE ---
Pt left facility with [facility] ground crew at 0252 hours. Pt has arrested again with [facility] crew in room, ROSC achieved. Report called to Janet at [facility] at 0330 hours. All questions asked and answered. NOTE ~ [facility] crew took the following medications (HS aware and present) for transport. These were also emailed to pharmacy and marked off in SEP as such. EPI from crash cart (4), aminodarone (1), propofol (2) Levophed (1). Dr. Landry and warehouse operator along with security present during transfer.
--- NOTE | 2023-11-19 03:47 | RESPIRATORY ---
RT responded a multiple code blue and managed airway during codes and throughout night while pt. was on mechanical ventilator. Q2 ABG obtained until the blood gasses stabilized in point of respiratory care and MD verbal order. SpO2 was maintained above 90's throughtnight until [facility] ground transport crew arrival. Manually ventilated with maximum O2 flow during CPR and needed PEEP of 8 and FiO2 85% on vent to normalize PaO2. Numbers on the vent were stable no complication occurred.
--- NOTE | 2023-11-19 05:37 | NUR.NOTE ---
Pt's sister, Archana was notified via telephone by Dr. Landry of condition and plan of care post arrest. Sister can be reached at [phone].
--- NOTE | 2023-11-19 06:52 | NUR.NOTE ---
at 0230 hours when [facility] [place] was here to transport pt, she arrested while they were changing pacer from our monitor to theirs. CPR was initiated by [facility] team and ROSC was achieved immediately. Pt was stabilized by [facility] team and transported on their pacer/monitor and left facility at 0252 hours via stretcher and ground crew.:
== END 2023-11-19 02:52 | disposition short-term general hospital (02) | DRG 871 ==
LOC: ER 11-18 01:58 → ICU 11-18 03:02
PROVIDERS: Emergency Medicine; General Practice; Internal Medicine; Admitting Provider Family Medicine; Emergency Provider Student in an Organized Health Care Education/Training Program; PCP Family Medicine; Visit Provider Family Medicine
DX: A41.9 Sepsis, unspecified organism (principal); I21.3 ST elevation (STEMI) myocardial infarction of unspecified site; I46.9 Cardiac arrest, cause unspecified; I48.92 Unspecified atrial flutter; N10 Acute pyelonephritis; I50.22 Chronic systolic (congestive) heart failure; I47.10 Supraventricular tachycardia, unspecified; N17.9 Acute kidney failure, unspecified; N13.30 Unspecified hydronephrosis; Z68.42 Body mass index [BMI] 45.0-49.9, adult; I44.2 Atrioventricular block, complete; R65.20 Severe sepsis without septic shock; E86.0 Dehydration; E83.42 Hypomagnesemia; E87.6 Hypokalemia; I11.0 Hypertensive heart disease with heart failure; E11.9 Type 2 diabetes mellitus without complications; Z79.4 Long term (current) use of insulin; I25.10 Atherosclerotic heart disease of native coronary artery without angina pectoris; E78.5 Hyperlipidemia, unspecified; N20.0 Calculus of kidney; I34.0 Nonrheumatic mitral (valve) insufficiency; E66.01 Morbid (severe) obesity due to excess calories
CPT/HCPCS: 36573; 31500; 00123; 36410; 36415; 36416; 36591; 51702; 71045; 80048; 80051; 80053; 82805; 82962; 83690; 85027; 87040; 87077; 87637; 92950; 93005; 96361; 96365; 96366; 96375; 96376; 99285; 99291; J1650; J2760; 36600; 70450; 74177; 81003; 81015; 83605; 83735; 83880; 84484; 85025; 85610; 85730; 87086; 87186; 93010; 94002; 99236; J0131; J0283; J0461; J0696; J1644; J1815; J2270; J2405; J2470; J2704; J3475; J3480; J3490

== ENCOUNTER → 2023-12-20 12:49 | Outpatient (BNVA) | payer MEDICARE, SELFPAY | PROVIDERS: PCP Family Medicine; Referring Provider Family Medicine; Visit Provider Student in an Organized Health Care Education/Training Program | DX: M54.16 Radiculopathy, lumbar region (principal); M17.0 Bilateral primary osteoarthritis of knee | CPT/HCPCS: 99215 ==

== ENCOUNTER 2023-12-24 17:32 | Outpatient (REF) | payer MEDICARE, SELFPAY ==
[2023-12-24 21:13] LABS: Abs Immature Grans 0.01 10^3/uL (0.0-0.06); Absolute Basophil Count 0.01 10^3/uL (0.0-0.2); Absolute Lymphocyte Count 1.23 10^3/uL (1.2-3.4); Absolute Monocyte Count 0.19 10^3/uL (0.1-0.8); Absolute Neutrophil Count 3.82 10^3/uL (1.2-6.7); Basophils % 0.2 %; HCT 33.4 % (36.0-46.0); HGB 10.9 g/dL (11.2-15.7); Immature Grans % 0.2 %; Lymphocytes % 23.4 %; MCH 32.3 pg (27.0-33.0); MCHC 32.6 % (32.0-36.0); MCV 99 fL (80-95); Monocytes % 3.6 %; Neutrophils % 72.6 %; Platelet Count 149 10^3/uL (130-400); RBC 3.37 10^6/uL (3.93-5.22); RDW 13.6 % (11.7-14.6); RDW-SD 49.3 fL; WBC 5.26 10^3/uL (4.4-10.8)
[2023-12-24 21:20] LABS: ALT 40 U/L (14-59); AST 41 U/L (15-37); Albumin 3.9 g/dL (3.4-5.0); Alkaline Phosphatase 141 U/L (46-116); Anion Gap 10.4 mmol/L (3-11); BUN 25 mg/dL (7-18); Bilirubin, Total 0.9 mg/dL (0.2-1.0); CO2 21.6 mmol/L (21.0-32.0); Calcium 9.8 mg/dL (8.5-10.1); Chloride 102 mmol/L (98-107); Estimated GFR 62.91 (mL/min/1.73m2); Glucose 178 mg/dL (74-106); Potassium 3.8 mmol/L (3.5-5.1); Sodium 134 mmol/L (136-145); Total Protein 7.5 g/dL (6.4-8.2)
== END 2023-12-24 17:33 | disposition home or self-care (01) ==
LOC: NCHCN 17:32
PROVIDERS: PCP Family Medicine; Visit Provider Family Medicine
DX: I25.10 Atherosclerotic heart disease of native coronary artery without angina pectoris (principal)
CPT/HCPCS: 80053; 85025

== ENCOUNTER → 2024-02-18 14:24 | Outpatient (BNVA) | payer MEDICARE, SELFPAY | PROVIDERS: PCP Family Medicine; Visit Provider Student in an Organized Health Care Education/Training Program | DX: M17.11 Unilateral primary osteoarthritis, right knee (principal); M17.12 Unilateral primary osteoarthritis, left knee | CPT/HCPCS: 20610; J7325 ==

== ENCOUNTER → 2024-02-27 01:07 | Outpatient (CLI) | payer MEDICARE, SELFPAY ==
--- NOTE | 2024-02-27 07:30 | DI.MRI_ITS ---
Exam(s) MR LUMBAR SPINE WO EXAM: MR LUMBAR SPINE WO CLINICAL HISTORY: left lumbar radiculopathy,m54.16. TECHNIQUE: Multiplanar multisequence MRI of the Lumbar spine was performed. COMPARISON: CR,XR XR PORTABLE CHEST AP POST LINE from 11/18/2023 FINDINGS: Bones: The last intervertebral disc space is designated the L5/S1 level for the numbering purpose of this ex amination. The vertebral body heights are well maintained. Alignment: Unremarkable. The marrow signal characteristics are unremarkable. Hemangioma L2. Cord: The conus tip ends at the T12 level. It is of normal size and signal intensity. T12-L1: No focal disc herniation is present. No central spinal canal stenosis.No neural foraminal st enosis. L1-2: No focal disc herniation is present. No central spinal canal stenosis.No neural foraminal sten osis. L2-3: No focal disc herniation is present. No central spinal canal stenosis.No neural foraminal javi nosis. L3-4: Mild disc bulging on laterally. Facet degenerative changes and mild ligamentous hypertrophy.No focal disc herniation is present. No central spinal canal stenosis.Mild left and moderate right ne ural foraminal stenosis. L4-5: Disc bulging, greater laterally. no focal disc herniation is present. Facet degenerative aimee nges and ligamentous hypertrophy combine to create mild central spinal canal stenosis.Mild right and moderate left neural foraminal stenosis. L5-S1: Minimal disc bulging.No focal disc herniation is present. Facet degenerative changes. No hugo tral spinal canal stenosis.Moderate right neural foraminal stenosis. The visualized SI joints and sacrum are unremarkable. Soft tissues: The paraspinal soft tissues are unremarkable. IMPRESSION: Mild central canal stenosis at L4-5 secondary to combination of degenerative changes. Multilevel mil [id number] neural foraminal narrowing. No focal disc herniation. DATA REPOSITORY:
== END ==
PROVIDERS: PCP Family Medicine; Visit Provider Student in an Organized Health Care Education/Training Program
DX: M54.16 Radiculopathy, lumbar region (principal); M48.061 Spinal stenosis, lumbar region without neurogenic claudication
CPT/HCPCS: 72148

== ENCOUNTER 2024-03-04 21:44 | Outpatient (REF) | payer MEDICARE, SELFPAY | END 2024-03-04 21:45 | disposition home or self-care (01) | LOC: NCHCN 21:44 | PROVIDERS: PCP Family Medicine; Visit Provider Family Medicine | DX: R35.0 Frequency of micturition (principal) | CPT/HCPCS: 87086 ==

== ENCOUNTER 2024-03-09 15:10 | Emergency (ER) | payer MEDICARE, SELFPAY ==
[2024-03-09 15:17] VITALS: BP 129/63; PULSE 76; RESP 18; TEMP 35.7; O2SAT 99
[2024-03-09 15:53] VITALS: BP 129/63; PULSE 76; RESP 18; TEMP 36.2; O2SAT 99
--- NOTE | 2024-03-09 16:06 | ED.GENADUL_ITS ---
Discharge Plan Disposition Patient Disposition: Home Condition: Stable Discharge Details Clinical Impression: Hematuria Primary Care Provider: Trev Burr ED Provider: Mirella Taylor Home Meds and New Rx's Prescriptions: New tamsulosin 0.4 mg capsule 0.4 mg PO DAILY Qty: 30 0RF No Action multivitamin Tablet 1 tab PO DAILY insulin glargine [Basaglar KwikPen U-100 Insulin] 100 unit/mL (3 mL) insulin pen 22 unit subcut DAILY Patient Comments: 15 Q AM, 13 Q PM vitamin B complex [B Complex-Vitamin B12] Tablet 1 tab PO DAILY estradiol [Estrace] 0.01 % (0.1 mg/gram) cream 1 appful vaginal DAILY Qty: 42.5 4RF Rx Instructions: daily for 2 weeks then twice weekly Ozempic 1 mg/dose (2 mg/1.5 mL) pen injector 2 mg subcut QWEEK hydrocodone-acetaminophen 7.5-325 mg tablet 1 tab PO BID PRN acetaminophen 500 mg tablet 1,000 mg PO ONCE ibuprofen 200 mg capsule 800 mg PO Q6H PRN acyclovir 5 % cream 1 applic TP ONCE PRN diclofenac sodium [Voltaren] 1 % gel 2 gm TP QID PRN ferrous sulfate [Iron (ferrous sulfate)] 325 mg (65 mg iron) tablet 325 mg PO DAILY celecoxib 200 mg capsule 200 mg PO BID duloxetine 20 mg capsule,delayed release(DR/EC) 20 mg PO DAILY nitroglycerin 0.4 MG tablet, sublingual 0.4 mg Sublingual PRN Patient Comments: 05/04/14: Pt carries NTG but has never had to use it. PG insulin aspart U-100 [Novolog FlexPen U-100 Insulin] 100 unit/mL (3 mL) insulin pen 15 unit subcut TID gabapentin 600 mg tablet 600 mg PO QID valacyclovir 1 gram tablet 1,000 mg PO DAILY clotrimazole-betamethasone 1-0.05 % cream 1 applic topical BID 10 Days Qty: 15 2RF atorvastatin 10 mg tablet 10 mg PO DAILY levalbuterol tartrate 45 mcg/actuation HFA aerosol inhaler 2 inh inhalation Q6H PRN Rx Instructions: Q4-6H PRN spironolactone 25 mg tablet 25 mg PO DAILY Ozempic 0.25 mg or 0.5 mg (2 mg/3 mL) pen injector 0.25 mg subcut QWEEK Rx Instructions: for 4 weeks metformin 1,000 mg tablet 1,000 mg PO BID mupirocin calcium 2 % cream 1 applic topical BID Qty: 30 0RF amoxicillin 500 mg tablet 2,000 mg PO ONCE Qty: 4 0RF Rx Instructions: TAKE 4 TABS WITHIN ONE HOUR OF DENTAL PROCEDURE prednisone 10 mg tablet 10 mg PO DIRECTED Qty: 50 0RF Rx Instructions: Take 4 tabs for 5 days, then 3 tabs for 5 days, then 2 tabs for 5 days, then 1 tab for 5 days lisinopril 5 mg Tablet 5 mg PO DAILY carvedilol 3.125 mg tablet 12.5 mg PO BID Discharge Instructions Instructions: Blood in Urine (Hematuria), Adult ED Additional Instructions: * Please start Flomax daily * make sure to drink plenty of water * Return to the emergency department if you develop fever, nausea vomiting, inability to urinate * Otherwise follow-up with urology. Referral has been sent. Referrals: Conner Alfred MD [ [facility]FF [facility]YSICIAN] - [facility] General Date/Time Provider Initiated Documentation: 03/09/24 15:23 . Limitations to Documentation: no limitations . Information obtained by: patient . HPI Narrative: 63-year-old female with past medical history of diabetes, recurrent UTI, AF flutter presents for evaluation of urinary urgency. She reports that she has been having symptoms for the last 3 weeks and using home test strips which tell her that she has ketones as well as leukocyte Esterase. She has been to her primary care provider twice and had 2 urine samples that have both been contaminated with skin cells. She denies any abdominal pain. She denies any fever, nausea vomiting or chills. She reports that she is very concerned because she had a urinary tract infection that resulted in severe sepsis and cardiac arrest and she does not want to miss anything she is stating that she has tried everything to get a clean-catch urine, but that she is requesting a straight cath Related Data Home Medications ?Medication ?Instructions ?Recorded ?Confirmed nitroglycerin 0.4 mg sublingual 0.4 mg sublingual PRN 11/07/12 02/19/24 tablet lisinopril 5 mg tablet 5 mg PO DAILY 07/22/18 02/19/24 acyclovir 5 % topical cream 1 applic topical ONCE PRN 12/19/18 02/19/24 diclofenac sodium 1 % topical gel 2 gm topical QID PRN 12/19/18 02/19/24 (Voltaren) carvedilol 3.125 mg tablet 12.5 mg PO BID 04/16/20 02/19/24 gabapentin 600 mg tablet 600 mg PO QID 10/13/20 02/19/24 insulin aspart U-100 100 unit/mL 15 unit subcut TID 10/13/20 02/19/24 (3 mL) subcutaneous pen (Novolog FlexPen U-100 Insulin aspart) valacyclovir 1 gram tablet 1,000 mg PO DAILY 10/13/20 02/19/24 multivitamin 1 tab PO DAILY 11/16/20 02/19/24 clotrimazole-betamethasone 1 1 applic topical BID 10 days #15 01/28/21 02/19/24 %-0.05 % topical cream grams estradiol 0.01% (0.1 mg/gram) 1 appful vaginal DAILY #42.5 grams 10/10/22 02/19/24 vaginal cream (Estrace) semaglutide 1 mg/dose (2 mg/1.5 2 mg subcut QWEEK 12/11/22 02/19/24 mL) subcutaneous pen injector (Ozempic) vitamin B complex (B 1 tab PO DAILY 12/11/22 02/19/24 Complex-Vitamin B12 tablet) atorvastatin 10 mg tablet 10 mg PO DAILY 12/28/22 02/19/24 levalbuterol tartrate 45 2 inh inhalation Q6H PRN 12/28/22 02/19/24 mcg/actuation aerosol inhaler metformin 1,000 mg tablet 1,000 mg PO BID 12/28/22 02/19/24 semaglutide 0.25 mg or 0.5 mg (2 0.25 mg subcut QWEEK 12/28/22 02/19/24 mg/3 mL) subcutaneous pen injector (Ozempic) spironolactone 25 mg tablet 25 mg PO DAILY 12/28/22 02/19/24 mupirocin calcium 2 % topical cream 1 applic topical BID #30 grams 06/06/23 02/19/24 ferrous sulfate 325 mg (65 mg 325 mg PO DAILY 06/22/23 02/19/24 iron) tablet (Iron (ferrous sulfate)) acetaminophen 500 mg tablet 1,000 mg PO ONCE 07/25/23 02/19/24 ibuprofen 200 mg capsule 800 mg PO Q6H PRN 07/25/23 02/19/24 celecoxib 200 mg capsule 200 mg PO BID 08/17/23 02/19/24 hydrocodone 7.5 mg-acetaminophen 1 tab PO BID PRN 12/20/23 02/19/24 325 mg tablet amoxicillin 500 mg tablet 2,000 mg (4 x 500 mg) PO ONCE #4 02/12/24 02/19/24 tabs prednisone 10 mg tablet 10 mg PO DIRECTED #50 tabs 02/12/24 02/19/24 duloxetine 20 mg capsule,delayed 20 mg PO DAILY 02/18/24 02/19/24 release insulin glargine 100 unit/mL (3 22 unit subcut DAILY 02/18/24 02/19/24 mL) subcutaneous pen (Basaglar KwikPen U-100 Insulin) tamsulosin 0.4 mg capsule 0.4 mg PO DAILY #30 caps 03/09/24 Previous Rx's ?Medication ?Instructions ?Recorded clotrimazole-betamethasone 1 1 applic topical BID 10 days #15 01/28/21 %-0.05 % topical cream grams estradiol 0.01% (0.1 mg/gram) 1 appful vaginal DAILY #42.5 grams 10/10/22 vaginal cream (Estrace) mupirocin calcium 2 % topical cream 1 applic topical BID #30 grams 06/06/23 amoxicillin 500 mg tablet 2,000 mg (4 x 500 mg) PO ONCE #4 02/12/24 tabs prednisone 10 mg tablet 10 mg PO DIRECTED #50 tabs 02/12/24 tamsulosin 0.4 mg capsule 0.4 mg PO DAILY #30 caps 03/09/24 Allergies Allergy/AdvReac Type Severity Reaction Status Date / Time erythromycin base Allergy Severe hives Verified 03/09/24 15:19 Sulfa (Sulfonamide Allergy Severe hives Verified 03/09/24 15:19 Antibiotics) sulfamethoxazole (From Allergy Other (See Verified 03/09/24 15:19 Bactrim) Comment) trimethoprim (From Bactrim) Allergy Other (See Verified 03/09/24 15:19 Comment) magnesium AdvReac Severe Diarrhea Verified 03/09/24 15:19 nitrofurantoin (From AdvReac Severe depression Verified 03/09/24 15:19 Macrobid) clomipramine (From Anafranil) AdvReac Intermediate Other (See Verified 03/09/24 15:19 Comment) ketamine AdvReac Intermediate hallucinati Verified 03/09/24 15:19 ons General Stated Complaint: Urinary GROVER: 4 Exam Narrative Exam Narrative: Review of Systems: All systems reviewed & are unremarkable except as noted in HPI and below obese afebrile NCAT PERRL, normal conjunctiva RRR Unlabored respiratory effort Nondistended abdomen , non tender Course Vital Signs Vital signs: Vital Signs Temperature 35.7 C L 03/09/24 15:17 Pulse 76 03/09/24 15:17 Respiratory Rate 18 03/09/24 15:17 Blood Pressure 129/63 03/09/24 15:17 Pulse Oximetry 99 03/09/24 15:17 Temperature 36.2 C L 03/09/24 15:53 Temperature Source Tympanic 03/09/24 15:53 Pulse 76 03/09/24 15:53 Respiratory Rate 18 03/09/24 15:53 Respiratory Effort Normal 03/09/24 15:53 Blood Pressure 129/63 03/09/24 15:53 Blood Pressure Position Sitting 03/09/24 15:53 Pulse Oximetry 99 03/09/24 15:53 Oxygen Delivery Method Room Air 03/09/24 15:53 Oxygen Flow Rate 0 03/09/24 15:17 Pain Level 0 03/09/24 15:53 Lab/Test Results Lab/Test Results: 03/09/24 15:56 Urine - Cath Straight Urine Culture - Pending Medical Decision Making Emergent evaluation of urinary frequency. Consider UTI, hyperglycemia especially given the ketones noted on home test strips. Patient is not having any sick symptoms that is concerning for overwhelming infection or sepsis. She is requesting a urinary cath to collect a urine sample. Urine sample reviewed. There is just gross hematuria. No white blood cells, a culture has been sent to determine if this is an infection. However with discussion with the patient, this has been ongoing for the last 3 weeks she has not had any fever nausea vomiting or other sick symptoms. She has not had any pain which would be concerning for a kidney stone. She reports that she has also had hematuria with cystoscopy and biopsy previously no formal diagnosis was made. I discussed return precautions with the patient and have referred her to urology to follow-up this week. Quality:SDOH Health Related Social Needs: No Data to Display PFSH All Active Problems (Updated 03/09/24 @ 16:34 by Mirella Taylor MD) Left lumbar radiculopathy (Acute) SVT (supraventricular tachycardia) (Chronic) DVT prophylaxis (Acute) Sepsis (Acute) Acute dehydration (Acute) Pyelonephritis (Acute) Nausea & vomiting (Acute) Elevated troponin level not due to acute coronary syndrome (Acute) Atrial flutter, paroxysmal (Acute) Pyelonephritis, acute (Acute) Lipoma (Acute) Degenerative joint disease of right hip (Chronic) S/P total left hip arthroplasty (Acute 04/18/23) Lateral epicondylitis of right elbow (Acute) Hematuria (Acute) Recurrent UTI (Chronic) Flank pain (Acute) Cystocele (Acute 04/13/15) Primary osteoarthritis of both knees (Chronic 07/26/15) Synvisc injections for many years Most recent Synvisc injections: 06/22/2023; 12/11/2022; 06/05/2022; 12/02/2021; 12/11/22; 06/22/23 Incarcerated incisional hernia (Acute) Hyperglycemia (Chronic) Lactic acid acidosis (Acute) Renal insufficiency (Chronic) Leukocytosis (leucocytosis) (Acute) Morbid obesity (Chronic) Hydronephrosis (Acute) Diabetes (Chronic) Right rotator cuff tendinitis (Acute) Steroid injection: 02/07/2021; 04/14/2019 Breast pain, left (Acute) 09/2019. Physical exam unremarkable. No additional testing ordered. Tendinitis of left elbow (Acute) Gross hematuria (Acute) Diarrhea (Acute) UTI (urinary tract infection) (Acute) Vaginal dryness, menopausal (Acute) Osteoarthritis of left hip (Acute) Peripheral neuropathy (Acute) Medical History Osteoarthritis of hips, bilateral Calcium nephrolithiasis Bile acid malabsorption syndrome History of palpitations CAD (coronary artery disease) Vertigo Chronic lower back pain Urinary incontinence Osteoma Hypertension Neuropathy Chronic pain Degenerative joint disease Chronic leg pain Hypomagnesemia Hyperparathyroidism Plantar fasciitis Thyroid nodule Obstructive nephropathy Incisional hernia Herpes simplex Diarrhea Vaginitis Acute stress disorder PTSD (post-traumatic stress disorder) Cirrhosis of liver Other chromoabnormalities of urine Former smoker quit smoking 07/23/16 Depression Cardiomyopathy Urinary incontinence, mixed Obsessive compulsive disorder Vaginal wall prolapse Congestive heart failure Anemia Sleep apnea Sarcoidosis Anxiety Congenital ureterovesical obstruction Diabetes mellitus Kidney stone Essential hypertension Surgical History Tonsillectomy and adenoidectomy Open Carpal Tunnel release Oophrectomy, Both Lithotripsy Abdominal hysterectomy Fracture, Open Treatment Cholecystectomy Family History Mother Diabetes Heart disease Father Personal history of malignant neoplasm Lung Cancer Sister Personal history of malignant neoplasm Thyroid Cancer Social History Smoking/Tobacco Use Status: Former Tobacco Use Quit Date: 07/23/16 Smoking risk assessment performed?: Yes Alcohol Intake: current Alcohol Intake frequency: holidays/special occasions only Drug use: Rarely Substance use type: marijuana Details: edible Housing: apartment Current gender identity: female Do you feel safe at home: Yes Additional Social history: lives alone
[2024-03-09 16:17] LABS: Clarity Turbid (Clear); Specific Gravity 1.015 (1.005-1.025)
[2024-03-09 16:21] LABS: C & S Indicated? C&S Done As Ordered; RBC >50 HPF (0-2)
[2024-03-09 16:43] VITALS: BP 129/63; PULSE 76; RESP 18; TEMP 36.2; O2SAT 99
--- NOTE | 2024-03-09 18:24 | NUR.NOTE ---
Referral faxed to [facility] for hematuria, to be seen MELISSA. Nursing Note:
--- NOTE | 2024-03-12 09:06 | NUR.NOTE ---
Access chart to see if an antibiotic was prescribed on discharge for urine culture. Nursing Note:
== END 2024-03-09 16:44 | disposition home or self-care (01) ==
PROVIDERS: Emergency Provider Emergency Medicine; PCP Family Medicine
DX: R30.0 Dysuria (principal); R31.9 Hematuria, unspecified; R35.0 Frequency of micturition; Z87.440 Personal history of urinary (tract) infections
CPT/HCPCS: 99283; 81003; 81015; 87086

== ENCOUNTER 2024-03-16 10:23 | Emergency (ER) | payer MEDICARE, SELFPAY ==
[2024-03-16] VITALS (22 sets, daily range): BP systolic 132–138; BP diastolic 78–99; PULSE 76–92; RESP 11–23; TEMP 36.3–36.6; O2SAT 95–99
--- NOTE | 2024-03-16 10:15 | DI.RAD_ITS ---
Exam(s) XR PORTABLE CHEST AP EXAM: XR PORTABLE CHEST AP CLINICAL HISTORY: New O2 req TECHNIQUE: 2D digital imaging was performed. COMPARISON: CR,XR XR PORTABLE CHEST AP from 11/17/[address] ABDOMEN PELVIS W from 11/17/2023 CR,XR XR PORTABLE CHEST AP POST LINE from 11/18/2023 CR,XR XR PORTABLE CHEST AP POST LINE from 11/18/2023 CR,XR XR PORTABLE CHEST AP POST LINE from 11/18/2023 FINDINGS: The exam is limited by under penetration. LUNGS: Grossly clear where visualized. No pleural abnormality seen. HEART: Normal size. AORTA: Normal diameter. BONES: Unremarkable for age. Soft tissues: Unremarkable. IMPRESSION: Limited exam. No acute findings. DATA REPOSITORY: RADIATION DOSE DELIVERED:
--- NOTE | 2024-03-16 10:15 | RT.EKG_ITS ---
APPROVED REPORT Exam: Resting ECG Reason for Exam: New O2 req Patient Location: E HR:79 bpm ECG Measurements Heart Rate 79 AXIS DC 202 P 19 QRSd 150 QRS -41 QT 425 T 101 QTc 488 Conclusion Sinus rhythm Rate 79 LBBB, morphology unchanged from prior EKG No STEMI
--- NOTE | 2024-03-16 10:34 | ED.GENADUL_ITS ---
Discharge Plan Disposition Patient Disposition: Home Condition: Stable Discharge Details Clinical Impression: Recurrent UTI, Hypoxic episode, Marijuana use, Hematuria, Renal insufficiency, Morbid obesity, Diabetes, Atrial flutter, paroxysmal Primary Care Provider: Trev Burr ED Provider: Janell Leblanc Home Meds and New Rx's Prescriptions: New cephalexin 500 mg capsule 500 mg PO QID 7 Days Qty: 28 0RF No Action multivitamin Tablet 1 tab PO DAILY insulin glargine [Basaglar KwikPen U-100 Insulin] 100 unit/mL (3 mL) insulin pen 22 unit subcut DAILY Patient Comments: 15 Q AM, 13 Q PM vitamin B complex [B Complex-Vitamin B12] Tablet 1 tab PO DAILY estradiol [Estrace] 0.01 % (0.1 mg/gram) cream 1 appful vaginal DAILY Qty: 42.5 4RF Rx Instructions: daily for 2 weeks then twice weekly Ozempic 1 mg/dose (2 mg/1.5 mL) pen injector 2 mg subcut QWEEK hydrocodone-acetaminophen 7.5-325 mg tablet 1 tab PO BID PRN acetaminophen 500 mg tablet 1,000 mg PO ONCE ibuprofen 200 mg capsule 800 mg PO Q6H PRN acyclovir 5 % cream 1 applic TP ONCE PRN diclofenac sodium [Voltaren] 1 % gel 2 gm TP QID PRN ferrous sulfate [Iron (ferrous sulfate)] 325 mg (65 mg iron) tablet 325 mg PO DAILY celecoxib 200 mg capsule 200 mg PO BID duloxetine 20 mg capsule,delayed release(DR/EC) 20 mg PO DAILY nitroglycerin 0.4 MG tablet, sublingual 0.4 mg Sublingual PRN Patient Comments: 05/04/14: Pt carries NTG but has never had to use it. PG insulin aspart U-100 [Novolog FlexPen U-100 Insulin] 100 unit/mL (3 mL) insulin pen 15 unit subcut TID gabapentin 600 mg tablet 600 mg PO QID valacyclovir 1 gram tablet 1,000 mg PO DAILY clotrimazole-betamethasone 1-0.05 % cream 1 applic topical BID 10 Days Qty: 15 2RF atorvastatin 10 mg tablet 10 mg PO DAILY levalbuterol tartrate 45 mcg/actuation HFA aerosol inhaler 2 inh inhalation Q6H PRN Rx Instructions: Q4-6H PRN spironolactone 25 mg tablet 25 mg PO DAILY Ozempic 0.25 mg or 0.5 mg (2 mg/3 mL) pen injector 0.25 mg subcut QWEEK Rx Instructions: for 4 weeks metformin 1,000 mg tablet 1,000 mg PO BID mupirocin calcium 2 % cream 1 applic topical BID Qty: 30 0RF prednisone 10 mg tablet 10 mg PO DIRECTED Qty: 50 0RF Rx Instructions: Take 4 tabs for 5 days, then 3 tabs for 5 days, then 2 tabs for 5 days, then 1 tab for 5 days clindamycin HCl 300 mg capsule 600 mg PO ONCE Qty: 2 0RF Rx Instructions: take 2 tablets by mouth 1 hour prior to dental work lisinopril 5 mg Tablet 5 mg PO DAILY carvedilol 3.125 mg tablet 12.5 mg PO BID tamsulosin 0.4 mg capsule 0.4 mg PO DAILY Qty: 30 0RF Discharge Instructions Instructions: Urinary Tract Infection, Adult ED Additional Instructions: You were seen in the emergency department today for evaluation of sleepiness and low oxygen. In our department you had a full physical examination performed, had laboratory studies that were reassuring but you do have evidence of a recurrent UTI. We sent your urine for culture and you will be updated as to the results, especially if you need to change the antibiotics that we have prescribed you. Please take all the antibiotics until they are gone, even if you start to feel better. Your oxygen improved on its own and you have no evidence of pneumonia or other concerning findings. Please follow-up with your primary care provider to discuss this visit and any symptoms that change, worsen, or persist. Thank you for allowing us to be part of your care. HPI General Date/Time Provider Initiated Documentation: 03/16/24 10:25 . Limitations to Documentation: altered mental status . Information obtained by: patient, EMS and old records reviewed . HPI Narrative: MDM: This is a 63-year-old female patient presenting for evaluation with alteration in mental status and new oxygen requirement. My differential includes but is not limited to pulmonary abnormalities including pneumonia, pulmonary edema, pneumothorax, pleural effusion, reactive airway disease exacerbation, atelectasis, hypoventilation syndrome. I am reassured by the patient's nonfocal lung sounds, and her improvement on supplemental O2. I considered metabolic electrolyte derangements, kidney injury, liver disease, anemia. I suspect that the patient's alteration in mental status is largely due to her marijuana use, I considered intracranial hemorrhage, stroke, mass effect though she is without focal neurodeficits and did not sustain trauma. I considered urinary tract infection given her urgency, as well as pyelonephritis and urinary stones. We will obtain laboratory studies to include CBC, CMP, troponin, and urinalysis. I will obtain an x-ray of the patient's chest. ED Course: I reviewed the patient's laboratory studies, which show no leukocytosis, stable anemia but no thrombocytopenia, chemistry panel is without electrolyte derangements, the patient has a baseline elevation in her BUN and creatinine to 19 and 1.2, and a mildly low magnesium at 1.4, no evidence of liver dysfunction, troponin is negative. The urinalysis is positive for hematuria, moderate leukocyte esterase, and pyuria, with rare bacteria. I did shared decision-making conversation regarding her urinary urgency, and the patient does have a history of frequent UTIs, most recently grew pansensitive Klebsiella, and I recommended pursuing treatment for her urinary tract infection and following up on culture results. I gave her a dose of ceftriaxone here in the emergency department and we will start her on cephalexin in the home environment. The patient was placed on room air and was monitored, and had no desaturation events. I am most suspicious for hypoventilation in the setting of her sleepiness due to her inadvertent excessive marijuana use. At this time, the patient has had a full medical evaluation and is safe for disc harge to home. They are hemodynamically stable, ambulatory, and tolerating PO. They are understanding of the follow-up plan and return precautions. They left our facility without incident. Janell Leblanc MD HPI: This is a 63-year-old female patient with a past medical history significant for atrial flutter not on anticoagulation, diabetes, peripheral neuropathy, and obesity who is presenting with EMS for evaluation of new oxygen requirement. The patient was initially seeking a lift assist, got up to use the bathroom this morning and felt very weak, and had to lower herself to the floor. She reports that she did not sustain traumatic injury, and specifically did not strike her head, lose consciousness, and is without pain at this time. The patient reports that she took part of a marijuana gummy this morning, which she occasionally uses for pain but has not in some time. She is not sure how much she took but feels that it is more than her typical dose. EMS arrived and found the patient to be slightly confused, unable to answer orientation questions regarding time, and noted her room air oxygen saturation to be 87%. She was placed on supplemental oxygen to good effect, no home oxygen use at baseline. The patient reports that other than needing to urinate, she is feeling quite well. She was hesitant to be transported but given her alteration in mental status and her new oxygen requirement it was deemed safest for her to come to the hospital for an evaluation. Exam: Gen: Awake and alert, appears sleepy HEENT: Non-icteric sclera, PERRL Neck: Supple Lungs: No apparent respiratory distress, normal respiratory effort. Lung sounds clear and equal bilaterally CV: Appears well perfused, heart with regular rate and rhythm, strong distal pulses Abdomen: Non-distended, soft, nontender MSK: Moves 4 extremities without apparent limitation in ROM. No peripheral edema Skin: Visualized skin without rashes, cyanosis. Neuro: Normal Gait, no obvious focal deficits or facial asymmetry. Speaks in full, clear sentences. Psych: Appropriate for situation, though slightly sleepy, apathetic. Related Data Home Medications ?Medication ?Instructions ?Recorded ?Confirmed nitroglycerin 0.4 mg sublingual 0.4 mg sublingual PRN 11/07/12 03/16/24 tablet lisinopril 5 mg tablet 5 mg PO DAILY 07/22/18 03/16/24 acyclovir 5 % topical cream 1 applic topical ONCE PRN 12/19/18 03/16/24 diclofenac sodium 1 % topical gel 2 gm topical QID PRN 12/19/18 03/16/24 (Voltaren) carvedilol 3.125 mg tablet 12.5 mg PO BID 04/16/20 03/16/24 gabapentin 600 mg tablet 600 mg PO QID 10/13/20 03/16/24 insulin aspart U-100 100 unit/mL 15 unit subcut TID 10/13/20 03/16/24 (3 mL) subcutaneous pen (Novolog FlexPen U-100 Insulin aspart) valacyclovir 1 gram tablet 1,000 mg PO DAILY 10/13/20 03/16/24 multivitamin 1 tab PO DAILY 11/16/20 03/16/24 clotrimazole-betamethasone 1 1 applic topical BID 10 days #15 01/28/21 03/16/24 %-0.05 % topical cream grams estradiol 0.01% (0.1 mg/gram) 1 appful vaginal DAILY #42.5 grams 10/10/22 03/16/24 vaginal cream (Estrace) semaglutide 1 mg/dose (2 mg/1.5 2 mg subcut QWEEK 12/11/22 03/16/24 mL) subcutaneous pen injector (Ozempic) vitamin B complex (B 1 tab PO DAILY 12/11/22 03/16/24 Complex-Vitamin B12 tablet) atorvastatin 10 mg tablet 10 mg PO DAILY 12/28/22 03/16/24 levalbuterol tartrate 45 2 inh inhalation Q6H PRN 12/28/22 03/16/24 mcg/actuation aerosol inhaler metformin 1,000 mg tablet 1,000 mg PO BID 12/28/22 03/16/24 semaglutide 0.25 mg or 0.5 mg (2 0.25 mg subcut QWEEK 12/28/22 03/16/24 mg/3 mL) subcutaneous pen injector (Ozempic) spironolactone 25 mg tablet 25 mg PO DAILY 12/28/22 03/16/24 mupirocin calcium 2 % topical cream 1 applic topical BID #30 grams 06/06/23 03/16/24 ferrous sulfate 325 mg (65 mg 325 mg PO DAILY 06/22/23 03/16/24 iron) tablet (Iron (ferrous sulfate)) acetaminophen 500 mg tablet 1,000 mg PO ONCE 07/25/23 03/16/24 ibuprofen 200 mg capsule 800 mg PO Q6H PRN 07/25/23 03/16/24 celecoxib 200 mg capsule 200 mg PO BID 08/17/23 03/16/24 hydrocodone 7.5 mg-acetaminophen 1 tab PO BID PRN 12/20/23 03/16/24 325 mg tablet prednisone 10 mg tablet 10 mg PO DIRECTED #50 tabs 02/12/24 03/16/24 duloxetine 20 mg capsule,delayed 20 mg PO DAILY 02/18/24 03/16/24 release insulin glargine 100 unit/mL (3 22 unit subcut DAILY 02/18/24 03/16/24 mL) subcutaneous pen (Nancy Webb U-100 Insulin) tamsulosin 0.4 mg capsule 0.4 mg PO DAILY #30 caps 03/09/24 03/16/24 clindamycin HCl 300 mg capsule 600 mg (2 x 300 mg) PO ONCE #2 caps 03/12/24 03/16/24 cephalexin 500 mg capsule 500 mg PO QID 7 days #28 caps 03/16/24 Previous Rx's ?Medication ?Instructions ?Recorded clotrimazole-betamethasone 1 1 applic topical BID 10 days #15 01/28/21 %-0.05 % topical cream grams estradiol 0.01% (0.1 mg/gram) 1 appful vaginal DAILY #42.5 grams 10/10/22 vaginal cream (Estrace) mupirocin calcium 2 % topical cream 1 applic topical BID #30 grams 06/06/23 prednisone 10 mg tablet 10 mg PO DIRECTED #50 tabs 02/12/24 tamsulosin 0.4 mg capsule 0.4 mg PO DAILY #30 caps 03/09/24 clindamycin HCl 300 mg capsule 600 mg (2 x 300 mg) PO ONCE #2 caps 03/12/24 cephalexin 500 mg capsule 500 mg PO QID 7 days #28 caps 03/16/24 Allergies Allergy/AdvReac Type Severity Reaction Status Date / Time erythromycin base Allergy Severe hives Verified 03/16/24 10:25 Sulfa (Sulfonamide Allergy Severe hives Verified 03/16/24 10:25 Antibiotics) sulfamethoxazole (From Allergy Other (See Verified 03/16/24 10:25 Bactrim) Comment) trimethoprim (From Bactrim) Allergy Other (See Verified 03/16/24 10:25 Comment) magnesium AdvReac Severe Diarrhea Verified 03/16/24 10:25 nitrofurantoin (From AdvReac Severe depression Verified 03/16/24 10:25 Macrobid) clomipramine (From Anafranil) AdvReac Intermediate Other (See Verified 03/16/24 10:25 Comment) ketamine AdvReac Intermediate hallucinati Verified 03/16/24 10:25 ons General Stated Complaint: Fall/Non TraumaCriteria GROVER: 3 Course Vital Signs Vital signs: Vital Signs Temperature 36.6 C 03/16/24 10:22 Pulse 92 H 03/16/24 10:22 Respiratory Rate 16 03/16/24 10:22 Blood Pressure 138/78 03/16/24 10:22 Pulse Oximetry 96 03/16/24 10:22 Temperature 36.6 C 03/16/24 10:22 Pulse 92 H 03/16/24 10:22 Pulse 81 03/16/24 10:30 Respiratory Rate 16 03/16/24 10:30 Respiratory Effort Normal 03/16/24 10:26 Blood Pressure 138/78 03/16/24 10:22 Pulse Oximetry 96 03/16/24 10:22 Oxygen Delivery Method Room Air 03/16/24 10:22 Oxygen Flow Rate 0 03/16/24 10:22 Pain Level 0 03/16/24 10:22 Medical Decision Making Quality:SDOH Health Related Social Needs: No Data to Display PFSH All Active Problems (Updated 03/16/24 @ 13:30 by Janell Leblanc MD) Marijuana use (Acute) Hypoxic episode (Acute) Left lumbar radiculopathy (Acute) SVT (supraventricular tachycardia) (Chronic) DVT prophylaxis (Acute) Sepsis (Acute) Acute dehydration (Acute) Pyelonephritis (Acute) Nausea & vomiting (Acute) Elevated troponin level not due to acute coronary syndrome (Acute) Atrial flutter, paroxysmal (Acute) Pyelonephritis, acute (Acute) Lipoma (Acute) Degenerative joint disease of right hip (Chronic) S/P total left hip arthroplasty (Acute 04/18/23) Lateral epicondylitis of right elbow (Acute) Hematuria (Acute) Recurrent UTI (Chronic) Flank pain (Acute) Cystocele (Acute 04/13/15) Primary osteoarthritis of both knees (Chronic 07/26/15) Synvisc injections for many years Most recent Synvisc injections: 06/22/2023; 12/11/2022; 06/05/2022; 12/02/2021; 12/11/22; 06/22/23 Incarcerated incisional hernia (Acute) Hyperglycemia (Chronic) Lactic acid acidosis (Acute) Renal insufficiency (Chronic) Leukocytosis (leucocytosis) (Acute) Morbid obesity (Chronic) Hydronephrosis (Acute) Diabetes (Chronic) Right rotator cuff tendinitis (Acute) Steroid injection: 02/07/2021; 04/14/2019 Breast pain, left (Acute) 09/2019. Physical exam unremarkable. No additional testing ordered. Tendinitis of left elbow (Acute) Gross hematuria (Acute) Diarrhea (Acute) UTI (urinary tract infection) (Acute) Vaginal dryness, menopausal (Acute) Osteoarthritis of left hip (Acute) Peripheral neuropathy (Acute) Medical History Osteoarthritis of hips, bilateral Calcium nephrolithiasis Bile acid malabsorption syndrome History of palpitations CAD (coronary artery disease) Vertigo Chronic lower back pain Urinary incontinence Osteoma Hypertension Neuropathy Chronic pain Degenerative joint disease Chronic leg pain Hypomagnesemia Hyperparathyroidism Plantar fasciitis Thyroid nodule Obstructive nephropathy Incisional hernia Herpes simplex Diarrhea Vaginitis Acute stress disorder PTSD (post-traumatic stress disorder) Cirrhosis of liver Other chromoabnormalities of urine Former smoker quit smoking 07/23/16 Depression Cardiomyopathy Urinary incontinence, mixed Obsessive compulsive disorder Vaginal wall prolapse Congestive heart failure Anemia Sleep apnea Sarcoidosis Anxiety Congenital ureterovesical obstruction Diabetes mellitus Kidney stone Essential hypertension Surgical History Tonsillectomy and adenoidectomy Open Carpal Tunnel release Oophrectomy, Both Lithotripsy Abdominal hysterectomy Fracture, Open Treatment Cholecystectomy Family History Mother Diabetes Heart disease Father Personal history of malignant neoplasm Lung Cancer Sister Personal history of malignant neoplasm Thyroid Cancer Social History Smoking/Tobacco Use Status: Former Tobacco Use Quit Date: 07/23/16 Smoking risk assessment performed?: Yes Alcohol Intake: current Alcohol Intake frequency: holidays/special occasions only Drug use: Rarely Substance use type: marijuana Details: edible Housing: apartment Current gender identity: female Do you feel safe at home: Yes Additional Social history: lives alone
[2024-03-16 10:57] LABS: Abs Immature Grans 0.02 10^3/uL (0.0-0.06); Absolute Basophil Count 0.03 10^3/uL (0.0-0.2); Absolute Eosinophil Count 0.14 10^3/uL (0.0-0.7); Absolute Lymphocyte Count 2.09 10^3/uL (1.2-3.4); Absolute Monocyte Count 0.74 10^3/uL (0.1-0.8); Basophils % 0.3 %; Eosinophils % 1.6 %; HCT 33.7 % (36.0-46.0); HGB 11.1 g/dL (11.2-15.7); Immature Grans % 0.2 %; Lymphocytes % 23.4 %; MCH 31.8 pg (27.0-33.0); MCHC 32.9 % (32.0-36.0); MCV 97 fL (80-95); MPV 9.2 fL (8.0-11.0); Monocytes % 8.3 %; Neutrophils % 66.2 %; Platelet Count 161 10^3/uL (130-400); RBC 3.49 10^6/uL (3.93-5.22); RDW 14.1 % (11.7-14.6); RDW-SD 49.8 fL; WBC 8.92 10^3/uL (4.4-10.8)
--- NOTE | 2024-03-16 11:02 | DI.VRAD_ITS ---
PROCEDURE INFORMATION: Exam: XR Chest Exam date and time: 03/16/2024 10:43 AM Age: 63 years old Clinical indication: Other: New o2 req TECHNIQUE: Imaging protocol: Radiologic exam of the chest. Views: 1 view. COMPARISON: 1. XR PORTABLE CHEST AP POST LINE 11/18/2023 8:[address] ABDOMEN PELVIS W 11/17/2023 10:57 PM FINDINGS: Lungs: Focal 2.7 cm area of increased density in the right lung base favored to be overlapping vascular structures, however difficult to exclude a focal area of consolidation or mass. Recommend PA and lateral radiographs versus chest CT. No lobar consolidation identified. Pleural spaces: No pneumothorax. No large pleural effusion. Heart/Mediastinum: The cardiomediastinal silhouette is within normal limits. Bones/joints: Unremarkable. IMPRESSION: Focal 2.7 cm area of increased density in the right lung base favored to be overlapping vascular structures, however difficult to exclude a focal area of consolidation or mass. Recommend PA and lateral radiographs versus chest CT. No lobar consolidation identified. Dictated and Authenticated by: Ted Ziegler MD. Ordering:MAXIMINO Dougherty MD
[2024-03-16 11:17] LABS: ALT 32 U/L (14-59); AST 30 U/L (15-37); Albumin 3.6 g/dL (3.4-5.0); Alkaline Phosphatase 92 U/L (46-116); Anion Gap 12.6 mmol/L (3-11); BUN 19 mg/dL (7-18); Bilirubin, Total 0.99 mg/dL (0.2-1.0); CO2 24.4 mmol/L (21.0-32.0); CREATININE 1.2 mg/dL (0.55-1.02); Calcium 9.3 mg/dL (8.5-10.1); Chloride 102 mmol/L (98-107); Estimated GFR 50.55 (mL/min/1.73m2); Glucose 147 mg/dL (74-106); Magnesium 1.4 mg/dL (1.8-2.4); Potassium 4.3 mmol/L (3.5-5.1); Sodium 139 mmol/L (136-145); Total Protein 7.4 g/dL (6.4-8.2); Troponin I < 50 ng/L (< or =60)
[2024-03-16 11:19] LABS: Bilirubin Negative (Negative); Blood Large (Negative); Clarity Sl Cloudy (Clear); Glucose Negative (Negative); Ketones Negative (Negative); Leukocyte Esterase Moderate (Negative); Nitrite Negative (Negative); Urobilinogen 0.2 mg/dL (Up to 0.2)
[2024-03-16 11:33] LABS: Bacteria Rare HPF (Negative); C & S Indicated? Yes; Casts Negative LPF (Negative); Crystals Negative HPF (Negative); Epithelial Cells Few HPF (Negative); Mucus Negative (Negative); Other Cells Few Yeast (Negative); WBC 20-50 HPF (0-5)
[2024-03-16] MEDS: cefTRIAXone 1 GM/50 ML BAG IVPB (12:40)
--- NOTE | 2024-03-18 10:21 | NUR.NOTE ---
Access chart for urine culture result and to determine antibiotics on discharge. Nursing Note:
== END 2024-03-16 14:06 | disposition home or self-care (01) ==
PROVIDERS: Emergency Provider Emergency Medicine; PCP Family Medicine
DX: N39.0 Urinary tract infection, site not specified (principal); R09.02 Hypoxemia; F12.90 Cannabis use, unspecified, uncomplicated; R31.9 Hematuria, unspecified; N28.9 Disorder of kidney and ureter, unspecified; E66.01 Morbid (severe) obesity due to excess calories; E11.40 Type 2 diabetes mellitus with diabetic neuropathy, unspecified; I48.92 Unspecified atrial flutter; I11.0 Hypertensive heart disease with heart failure; I50.9 Heart failure, unspecified; I25.10 Atherosclerotic heart disease of native coronary artery without angina pectoris; Z79.4 Long term (current) use of insulin; Z79.84 Long term (current) use of oral hypoglycemic drugs; Z79.85 Long-term (current) use of injectable non-insulin antidiabetic drugs; Z87.891 Personal history of nicotine dependence
CPT/HCPCS: 80053; 93005; 96374; 99284; 71045; 81003; 81015; 83735; 84484; 85025; 87086; 93010; 99283; J0696

== ENCOUNTER 2024-04-21 02:14 | Outpatient (CLI) | payer MEDICARE, SELFPAY ==
--- NOTE | 2024-04-21 08:00 | DI.MAMMO_ITS ---
Exam(s) US BREAST RT LIMITED US BREAST LT LIMITED MG MAMMO DIAGNOSTIC BI EXAM: MG MAMMO DIAGNOSTIC BI CLINICAL HISTORY: breast lumps, pain bilaterally,n63.0,n64.4. COMPARISON: 2018 and 2020 TECHNIQUE: Craniocaudal and mediolateral oblique Full Field Digital Mammography views of both breast s with Computer Aided Diagnosis followed by Tomosynthesis and bilateral breast ultrasound. FINDINGS: Mammography/Tomosynthesis: Masses/Architectural Distortion: None seen. Microcalcifications: No suspicious pleomorphic-type are seen. Skin Thickening/Nipple Retraction: None. Bilateral breast US: Echotexture: Normal appearance of the glandular tissue. Shadowing: No suspicious foci. Cyst: None. Solid lesions: None seen. Ductal dilation: None. IMPRESSION: 1. No evidence of malignancy is noted. 2. Unless there is more urgent need, follow-up screening mammography is recommended, as per [employer] guidelines. BI-RADS Category 1 - Negative Breast Density - Category A - Almost entirely fatty A negative radiographic report should not delay biopsy if a dominant or clinically suspicious mass is present. Up to ten percent of cancers are not identified on mammography. A negative report may reinforce clinical impression. Adenosis and dense breasts may obscure an underlying neoplasm. False positive reports average 6 to 10%. Patient will receive a letter notifying them of these results.
== END 2024-04-21 02:34 ==
LOC: DI 02:15
PROVIDERS: PCP Family Medicine; Visit Provider Obstetrics & Gynecology Gynecology
DX: N64.4 Mastodynia; Z47.1 Aftercare following joint replacement surgery; Z96.642 Presence of left artificial hip joint; Z12.31 Encounter for screening mammogram for malignant neoplasm of breast
CPT/HCPCS: 76642; 77062; 77066; 99213; G0279

== ENCOUNTER 2024-04-21 11:49 | Outpatient (CLI) | payer MEDICARE, SELFPAY ==
--- NOTE | 2024-04-21 11:24 | DI.RAD_ITS ---
Exam(s) XR HIP LT AP LAT ONLY EXAM: XR HIP LT AP LAT ONLY CLINICAL HISTORY: ANNUAL F/U L WILMA. TECHNIQUE: 2D digital imaging was performed. Two images were obtained. AP and lateral views were ob tained. COMPARISON: CR XR HIP LT COMPLETE AP PELVIS from 05/04/2023 FINDINGS: BONES: There are stable post operative changes of a left total hip replacement present. No fracture or dislocation. JOINTS: The orthopedic hardware is in good position. No evidence of hardware loosening. SOFT TISSUE: Normal. IMPRESSION: Stable left total hip replacement. DATA REPOSITORY: RADIATION DOSE DELIVERED:
== END 2024-04-21 11:50 | disposition home or self-care (01) ==
LOC: DIORS 11:50
PROVIDERS: PCP Family Medicine; Visit Provider Student in an Organized Health Care Education/Training Program
DX: Z96.642 Presence of left artificial hip joint (principal); Z47.1 Aftercare following joint replacement surgery
CPT/HCPCS: 76642; 77062; 77066; 99213; 73502; G0279

== ENCOUNTER 2024-04-29 09:34 | Outpatient (CLI) | payer MEDICARE, SELFPAY ==
[2024-04-29 10:35] VITALS: BP 108/48; PULSE 60; RESP 18; TEMP 36.7; O2SAT 96
--- NOTE | 2024-04-29 11:00 | PDOC.PAIN ---
Date of service: 04/29/24 Time of Service: 11:35 Pain Managment Procedure Note Procedure Note Procedure Note: need to reschedule 2nd to insurance issue
--- NOTE | 2024-04-29 11:32 | PDOC.PAIN ---
Date of service: 04/29/24 Time of Service: 11:33 Pain Managment Procedure Note Procedure Note Procedure Note: will need to reschedule 2nd insurance issue
== END 2024-04-29 09:35 | disposition home or self-care (01) ==
PROVIDERS: PCP Family Medicine; Visit Provider Anesthesiology Pain Medicine
DX: Z53.09 Procedure and treatment not carried out because of other contraindication (principal)
CPT/HCPCS: 00123; J0665

== ENCOUNTER 2024-07-02 11:59 | Outpatient (CLI) | payer MEDICARE, SELFPAY ==
--- NOTE | 2024-07-02 06:00 | DI.RAD_ITS ---
Exam(s) XR PAIN CLINIC LUMBAR SP 2V EXAM: XR PAIN CLINIC LUMBAR SP 2V CLINICAL HISTORY: Dx: Luumbar Radiculopathy. TECHNIQUE: Fluoroscopy was provided for the referring physician for guidance with performing pain cl inic injection procedure. COMPARISON: No exams were available for comparison FINDINGS: Please see procedure note for details. Fluoro time: 36.6 seconds RADIATION DOSE DELIVERED: Ka,r=41.65 mGy
--- NOTE | 2024-07-02 12:42 | PDOC.PAIN ---
Date of service: 07/02/24 Time of Service: 13:24 Pain Managment Procedure Note Procedure Note Procedure Note: Lumbar Transforaminal Epidural Steroid Injection ? Location: LEFT L4 and L5 ? Pre-procedure Diagnosis: [M54.17-Radiculopathy, lumbosacral region] [M54.16 Radiculopathy, lumbar region] ? Post-procedure Diagnosis:? The same as above ? Sedation:? none ? Estimated blood loss:? less than 2 cc ? Surgeon:? Brandon Camacho MD Repeat as needed. ? Procedure Detail:?? The procedure and potential risks were explained to the patient and informed written consent was obtained. The patient was escorted to the procedure room and placed in the prone position. Pillows were utilized for proper positioning and comfort. Time out was performed in the procedure room with nursing staff confirming the patient's identity, procedure to be performed, allergies, and any blood thinning or anti-platelet medications. The patient's lower back was prepped with ChloraPrep and draped in a sterile fashion. Sterile gloves were used, a face mask was worn, and new single dose vials of all medications were used with the top being swabbed with alcohol and given time to dry prior to withdrawal of medication. A LEFT-sided oblique fluoroscopic view was obtained, with visualization of L4-5. Lidocaine 1% was used to anesthetize the skin. The tip of a 22-gauge, Quincke needle was advanced toward the 6 o'clock position of the superior pedicle at the target level.? It was advanced just under the pedicle to the neural foramen L4-5. Correct needle placement was confirmed through review of the fluoroscopy. Next, following negative aspiration, 1cc's of Omnipaque 240 contrast was injected under live fluoroscopy which showed good flow throughout the epidural space and no evidence of vascular flow or flow into adjacent compartments. Next, following negative aspiration, 15mg of preservative-free dexamethasone and 0.5ml of 0.5% bupivacaine was injected. The needle was gently removed.? The procedure was also performed in the same fashion at LEFT L5-S1.? The patient tolerated the procedure well.? Permanent images saved and recorded. Plan:? Follow up prn PAIN: PRE PROCEDURE 11/29 POST PROCEDURE 11/29 COMMENT: If transient relief would use Depo-Medrol next injection
[2024-07-02 12:44] VITALS: BP 147/47; PULSE 61; RESP 20; TEMP 36.6; O2SAT 96
[2024-07-02 13:09] VITALS: O2SAT 98
[2024-07-02 13:10] VITALS: O2SAT 98
[2024-07-02 13:20] VITALS: O2SAT 97
[2024-07-02] MEDS: Omnipaque 240 MG/ML 50 ML BTL IJ (13:24)
[2024-07-02] MEDS: Nerve Block Tray 1 EACH MC (13:25)
[2024-07-02] MEDS: Dexamethasone Sod. Phos./Pres-Free 10 MG/ML VIAL IJ (13:25)
[2024-07-02] MEDS: Bupivacaine 0.5% Pres-Free 10 ML VIAL IJ (13:25)
== END 2024-07-02 12:00 | disposition home or self-care (01) ==
LOC: PC 11:59
PROVIDERS: PCP Family Medicine; Visit Provider Anesthesiology Pain Medicine
DX: M54.50 Low back pain, unspecified (principal); M54.17 Radiculopathy, lumbosacral region; M54.16 Radiculopathy, lumbar region
CPT/HCPCS: 00123; 64483; 64484; 72100; J0665; J1100; Q9967

== ENCOUNTER 2024-07-02 14:11 | Outpatient (REF) | payer MEDICARE, SELFPAY | END 2024-07-02 14:12 | disposition home or self-care (01) | LOC: LBN 14:11 | PROVIDERS: PCP Family Medicine; Visit Provider Student in an Organized Health Care Education/Training Program | DX: N39.0 Urinary tract infection, site not specified (principal); R82.89 Other abnormal findings on cytological and histological examination of urine | CPT/HCPCS: 87086 ==

== ENCOUNTER 2024-07-28 15:53 | Outpatient (CLI) | payer MEDICARE, SELFPAY ==
--- NOTE | 2024-07-28 14:45 | DI.RAD_ITS ---
Exam(s) XR HIP RT COMPLETE AP PELVIS EXAM: XR HIP RT COMPLETE AP PELVIS CLINICAL HISTORY: OA RIGHT HIP. TECHNIQUE: 2D digital imaging was performed. COMPARISON: CR XR HIP LT AP LAT ONLY from 04/21/2024 FINDINGS: Two views No evidence of acute fracture nor dislocation. There are severe advanced osteoarthritic degenerative changes in the right hip joint noted advanced uniform joint space narrowing and degenerative subarti cular cysts as well as prominent femoral head-neck junction osteophytes. There is a stable appearing prosthesis in the opposite-left hip. IMPRESSION: Severe advanced osteoarthritic degenerative changes in the right hip. Stable appearing left hip prosthesis. DATA REPOSITORY: RADIATION DOSE DELIVERED:
== END 2024-07-28 15:54 | disposition home or self-care (01) ==
LOC: DIORS 15:53
PROVIDERS: PCP Family Medicine; Referring Provider Family Medicine; Visit Provider Physician Assistant
DX: M16.11 Unilateral primary osteoarthritis, right hip
CPT/HCPCS: 99213; 73502

== ENCOUNTER 2024-07-31 15:05 | Outpatient (REF) | payer MEDICARE, SELFPAY ==
[2024-07-31 15:11] LABS: HCT 33.8 % (36.0-46.0); HGB 11.3 g/dL (11.2-15.7); MCH 32.5 pg (27.0-33.0); MCHC 33.4 % (32.0-36.0); MCV 97 fL (80-95); MPV 11.3 fL (8.0-11.0); Platelet Count 164 10^3/uL (130-400); RBC 3.48 10^6/uL (3.93-5.22); RDW 12.8 % (11.7-14.6); RDW-SD 44.4 fL; WBC 8.23 10^3/uL (4.4-10.8)
[2024-07-31 15:21] LABS: ALT 20 U/L (14-59); AST 26 U/L (15-37); Albumin 3.8 g/dL (3.4-5.0); Alkaline Phosphatase 87 U/L (46-116); BUN 12 mg/dL (7-18); Bilirubin, Total 1.89 mg/dL (0.2-1.0); Calcium 9.1 mg/dL (8.5-10.1); Chloride 104 mmol/L (98-107); Estimated GFR 62.91 (mL/min/1.73m2); Glucose 127 mg/dL (74-106); Sodium 145 mmol/L (136-145); Total Protein 6.9 g/dL (6.4-8.2)
== END 2024-07-31 15:06 | disposition home or self-care (01) ==
LOC: NCHCN 15:05
PROVIDERS: PCP Family Medicine; Visit Provider Family Medicine
DX: Z01.818 Encounter for other preprocedural examination (principal)
CPT/HCPCS: 80053; 85027

== ENCOUNTER 2024-08-07 00:16 | Outpatient (CLI) | payer MEDICARE, SELFPAY ==
--- NOTE | 2024-08-07 07:30 | DI.US_ITS ---
APPROVED REPORT EXAM: Comprehensive 2D, Doppler, and color-flow Echocardiogram Patient Location: Out-Patient [facility] Worker: Kassy Barnes RDCS (AE) Indications: Cardiac history, CAD, Cardiomyopathy, preoperative exam Other Information Study Quality: Fair. Technically limited study due to body habitus, inability to position patient exa m done supine. Conclusion Moderately dilated left ventricle. Normal left ventricular wall thickness. EF is 40 to 45%. No seg mental wall motion abnormalities are identified Right atrium and right ventricle are not well-visualized Left atrium is borderline dilated There is no structural or hemodynamically significant valvular disease Mildly dilated ascending aorta 3.42 cm Overall the echocardiogram appears similar to several previous done at [facility] earlier in 2023 Wall motion Left Ventricle Left ventricle is moderately dilated. Left ventricular systolic function is moderately decreased. The re is normal left ventricular wall thickness. Regional wall motion is not well visualized. There is n o ventricular septal defect visualized. LVEF is 40%. Right Ventricle Right ventricle is not well visualized. Right ventricular systolic function could not be assessed. Atria Left atrium is borderline dilated. Right atrium is not well visualized. The interatrial septum is int act with no evidence for an atrial septal defect. Aortic Valve The aortic valve is normal in structure. Aortic valve is trileaflet. There is no aortic valvular sten osis. No aortic regurgitation is present. Mitral Valve The mitral valve is normal in structure. No evidence of mitral valve stenosis. Trace to mild mitral r egurgitation. Tricuspid Valve The tricuspid valve is normal in structure. There is no tricuspid valve stenosis. Trace tricuspid reg urgitation. Unable to assess PA pressure. Pulmonic Valve The pulmonary valve is normal in structure. There is no pulmonic valvular stenosis. There is no pulmo michell valvular regurgitation. Great Vessels The aortic root is normal in size. The ascending aorta is mildly dilated. Aortic arch is not well vis ualized. IVC is normal in size and collapses >50% with inspiration. Pericardium Trace pericardial effusion. Technically limited. 2D Dimensions IVSD d PLAX 0.80 cm F: 0.6-1.0 Ao Root d 3.34 cm F: 2.7 - 3.3 LVPW d PLAX 0.84 cm F: 0.6 - 1.0 Ao Asc Diam d 3.42 cm F: 2.3 - 3.1 LVID d PLAX 6.10 cm F: 3.8 - 5.2 LVDs 5.20 cm F: 2.2 - 3.5 LV EF Teichholz 29.7 % FS 14.21 % LV EDV (Teich) 184.5 mL LV ESV (Teich) 129.7 mL M-Mode TAPSE 3.12 cm (M/F) >1.7 Auto EF LV EDV A4C 172.4 mL LV EDV A2C 134.8 mL LV EDV BP 152.6 mL LV ESV A4C 99.4 mL LV ESV A2C 81.5 mL LV ESV BP 89.2 mL LVEF(%) A4C 42.3 % LVEF(%) A2C 39.5 % LVEF(%) BP 41.5 % LV SV A4C 73.0 ml LV SV A2C 53.3 ml LV SV BP 63.4 ml LV CO A4C 5.1 L/min LV CO A2C 3.8 L/min LV CO BP 4.4 L/min HR A4C 69.37 BPM HR A2C 71.15 BPM LV EDV Index (BP) LA Volume LA Length A4C 4.3 cm LA Length A2C LA Area A4C s 11.42 cm2 LA Area A2C s LA Vol A4C A-L 25.76 mL LA Vol A2C A-L LA Vol Biplane A-L LA Vol A4C MOD 24.3 mL LA Vol A2C MOD LA Vol BP MOD LV Diastology MV E Vmax 0.94 (0.4-1.3 m/s) MV A Vmax 1.10 (0.4-1.3 m/s) E/A Ratio 0.9 Aortic Valve AoV Vmax 1.90 m/s LVOT Vmax 1.24 m/s AoV Peak Grad 14.5 mmHg LVOT Peak Grad 6.2 mmHg AoV Area (Vmax) 2.11 cm2 LVOT VTI 0.252 m AoV VTI 0.474 m LVOT Mean Grad 4.1 mmHg AoV Mean Baron. 1.62 m/s LVOT SV 81.47 mL AoV Mean Grad 11.1 mmHg LVOT Diam s 2.00 cm AoV Area (VTI) 1.72 cm2 AV Regurg Peak Gr. 14.51 mmHg Velocity Ratio 0.65 Mitral Valve MV DT 354 (160-240 msec) MV Vmax TIPS 1.12 m/s MV Mean Grad 2.6 (<2mmHg) MV VTI 0.379 m Pulmonary Valve PV Vmax 1.12 (0.5-1.5 m/s) RVOT Vmax 0.85 m/s PV Peak Grad 5.0 mmHg RVOT Peak Gr. 2.9 mmHg PV Mean Baron 0.77 m/s RVOT VTI 0.204 m PV Mean Grad 2.7 mmHg RVOT Mean Gr. 1.6 mmHg Tricuspid Valve RA Pressure 3.00 mmHg
== END 2024-08-07 00:36 ==
PROVIDERS: PCP Family Medicine; Visit Provider Internal Medicine Cardiovascular Disease
DX: I51.7 Cardiomegaly (principal)
CPT/HCPCS: 93306

== ENCOUNTER 2024-08-07 09:05 | Outpatient (CLI) | payer MEDICARE, SELFPAY ==
[2024-08-07 09:13] LABS: HCT 39.8 % (36.0-46.0); HGB 12.9 g/dL (11.2-15.7); MCH 31.8 pg (27.0-33.0); MCHC 32.4 % (32.0-36.0); MCV 98 fL (80-95); MPV 10.1 fL (8.0-11.0); Platelet Count 182 10^3/uL (130-400); RBC 4.06 10^6/uL (3.93-5.22); RDW 12.7 % (11.7-14.6); RDW-SD 45.6 fL
[2024-08-07 09:23] LABS: Anion Gap 10.4 mmol/L (3-11); BUN 10 mg/dL (7-18); CO2 25.6 mmol/L (21.0-32.0); CREATININE 0.9 mg/dL (0.55-1.02); Calcium 9.4 mg/dL (8.5-10.1); Chloride 105 mmol/L (98-107); Estimated GFR 71.39 (mL/min/1.73m2); Glucose 135 mg/dL (74-106); Potassium 4.2 mmol/L (3.5-5.1); Sodium 141 mmol/L (136-145)
[2024-08-11 11:32] LABS: Magnesium 1.4 mg/dL (1.8-2.4)
== END 2024-08-07 09:06 | disposition home or self-care (01) ==
LOC: LBO 09:05
PROVIDERS: PCP Family Medicine; Visit Provider Student in an Organized Health Care Education/Training Program
DX: Z01.818 Encounter for other preprocedural examination (principal); E11.9 Type 2 diabetes mellitus without complications; Z79.4 Long term (current) use of insulin
CPT/HCPCS: 36415; 80048; 85027; 83036; 83735

== ENCOUNTER 2024-08-13 11:10 | Observation (INO) | payer MEDICARE, SELFPAY ==
[2024-08-13] VITALS (35 sets, daily range): BP systolic 100–131; BP diastolic 32–68; PULSE 54–74; RESP 6–19; TEMP 35.7–36.9; O2SAT 89–98; BMI 48.5
--- NOTE | 2024-08-13 05:40 | W.ANESPRE ---
General Info Date of Service Date Performed: 08/13/24 Height: 5 ft 6 in Weight: 136.531 kg Body Mass Index (BMI): 48.5 Surgical Procedure: Operation Date: 08/13/24 07:50 Proposed Procedure Side Surgeon p Hip Total Hip Anterior, ACTIS Right Hossein Turner MD Meds Allergies and Home Medications Allergies Allergy/AdvReac Type Severity Reaction Status Date / Time erythromycin base Allergy Severe hives Verified 08/13/24 06:18 Sulfa (Sulfonamide Allergy Severe hives Verified 08/13/24 06:18 Antibiotics) sulfamethoxazole (From Allergy Other (See Verified 08/13/24 06:18 Bactrim) Comment) trimethoprim (From Bactrim) Allergy Other (See Verified 08/13/24 06:18 Comment) magnesium AdvReac Severe Diarrhea Verified 08/13/24 06:18 nitrofurantoin (From AdvReac Severe depression Verified 08/13/24 06:18 Macrobid) clomipramine (From Anafranil) AdvReac Intermediate Other (See Verified 08/13/24 06:18 Comment) ketamine AdvReac Intermediate hallucinati Verified 08/13/24 06:18 ons Home Medication ?Medication ?Instructions ?Recorded nitroglycerin 0.4 mg sublingual 0.4 mg sublingual PRN 11/07/12 tablet acyclovir 5 % topical cream 1 applic topical ONCE PRN 12/19/18 diclofenac sodium 1 % topical gel 2 gm topical QID PRN 12/19/18 (Voltaren) valacyclovir 1 gram tablet 1,000 mg PO DAILY 10/13/20 multivitamin 1 tab PO DAILY 11/16/20 clotrimazole-betamethasone 1 1 applic topical BID 10 days #15 01/28/21 %-0.05 % topical cream grams estradiol 0.01% (0.1 mg/gram) 1 appful vaginal DAILY #42.5 grams 10/10/22 vaginal cream (Estrace) vitamin B complex (B 1 tab PO DAILY 12/11/22 Complex-Vitamin B12 tablet) levalbuterol tartrate 45 2 inh inhalation Q6H PRN 12/28/22 mcg/actuation aerosol inhaler metformin 1,000 mg tablet 1,000 mg PO BID 12/28/22 spironolactone 25 mg tablet 25 mg PO DAILY 12/28/22 mupirocin calcium 2 % topical cream 1 applic topical BID #30 grams 06/06/23 ferrous sulfate 325 mg (65 mg 325 mg PO DAILY 06/22/23 iron) tablet (Iron (ferrous sulfate)) acetaminophen 500 mg tablet 500 mg PO DIRECTED 07/25/23 ibuprofen 200 mg capsule 800 mg PO Q6H PRN 07/25/23 hydrocodone 7.5 mg-acetaminophen 1 tab PO BID PRN 12/20/23 325 mg tablet duloxetine 20 mg capsule,delayed 60 mg PO DAILY 02/18/24 release insulin glargine 100 unit/mL (3 15 unit subcut QAM 02/18/24 mL) subcutaneous pen (Basaglar KwikPen U-100 Insulin) aspirin 325 mg tablet 162.5 mg PO DAILY 03/27/24 carvedilol 25 mg tablet 50 mg PO BID 07/28/24 furosemide 20 mg tablet 20 mg PO DAILY 07/28/24 gabapentin 600 mg tablet 1,200 mg PO TID 07/28/24 insulin aspart 1 sliding scale dose subcut 07/28/24 (niacinamide)(U-100) 100 unit/mL(3 USEASDIRECTD mL) subcutaneous pen (Fiasp FlexTouch U-100 Insulin) pravastatin 10 mg tablet 5 mg PO DAILY 07/28/24 sodium bicarbonate 650 mg tablet 1,300 mg PO BID 07/28/24 tirzepatide 2.5 mg/0.5 mL 5 mg subcut QWEEK 07/28/24 subcutaneous pen injector (Haimunjaro) insulin lispro 100 unit/mL 30 unit subcut TID 08/07/24 subcutaneous pen (Humalog KwikPen (U-100) Insulin) meclizine 25 mg chewable tablet 25 mg PO Q6H PRN 08/07/24 (Antivert) ondansetron HCl 4 mg tablet 4 mg PO Q6H PRN 08/07/24 Current Visit Medications: Current Medications Generic Name Dose Route Start Last Admin Trade Name Freq PRN Reason Stop Dose Admin Acetaminophen 1,000 mg 08/13/24 06:00 Acetaminophen 500 Mg Tab PO 08/13/24 23:59 PREOP BERT Celecoxib 400 mg 08/13/24 06:00 Celecoxib 200 Mg Cap PO 08/13/24 23:59 PREOP BERT Cefazolin Sodium 3,000 mg/ 100 mls @ 200 mls/hr 08/13/24 06:00 Sodium Chloride IV 08/13/24 23:59 PREOP BERT Tranexamic Acid/Sodium Chloride 1,000 mg in 100 mls @ 600 mls/hr 08/13/24 06:00 IVPB 08/13/24 23:59 PREOP BERT IV Miscellaneous Supplies 1 each 08/13/24 06:00 Iv Access IV 08/13/24 23:59 DIRECTED BERT Sodium Chloride 0 ml 08/13/24 06:00 Normal Saline Flush 10 Ml Syr IV 08/13/24 23:59 PRN PRN Sodium Chloride 0 ml 08/13/24 06:00 Normal Saline 10 Ml Vial IJ 08/13/24 23:59 DIRECTED PRN Sterile Water 0 ml 08/13/24 06:00 Water,Injection,Sterile 10 Ml Vial IJ 08/13/24 23:59 DIRECTED PRN PFSH Active Problems Active Problems: Problem Status Onset Code Painful breasts Acute N64.4 Breast lump Acute N63.0 Lumbar radiculitis Acute M54.16 Left lumbar radiculopathy Acute M54.16 SVT (supraventricular tachycardia) Chronic I47.10 DVT prophylaxis Acute Z29.9 Sepsis Acute A41.9 Acute dehydration Acute E86.0 Pyelonephritis Acute N12 Nausea & vomiting Acute R11.2 Elevated troponin level not due to acute coronary syndrome Acute R79.89 Atrial flutter, paroxysmal Acute I48.92 Pyelonephritis, acute Acute N10 Lipoma Acute D17.9 Degenerative joint disease of right hip Chronic M16.11 Lateral epicondylitis of right elbow Acute M77.11 Peripheral neuropathy Acute G62.9 Osteoarthritis of left hip Acute M16.12 Vaginal dryness, menopausal Acute N95.1 UTI (urinary tract infection) Acute N39.0 Diarrhea Acute R19.7 Gross hematuria Acute R31.0 Tendinitis of left elbow Acute M77.8 Breast pain, left Acute N64.4 Right rotator cuff tendinitis Acute M75.81 Diabetes Chronic E11.9 Hydronephrosis Acute N13.30 Morbid obesity Chronic E66.01 Leukocytosis (leucocytosis) Acute D72.829 Renal insufficiency Chronic N28.9 Lactic acid acidosis Acute E87.2 Hyperglycemia Chronic R73.9 Incarcerated incisional hernia Acute K43.0 Primary osteoarthritis of both knees Chronic 07/26/15 M17.0 Cystocele Acute 04/13/15 Flank pain Acute R10.9 Recurrent UTI Chronic N39.0 Hematuria Acute R31.9 Medical History Medical History Osteoarthritis of hips, bilateral Calcium nephrolithiasis Bile acid malabsorption syndrome History of palpitations CAD (coronary artery disease) Vertigo Chronic lower back pain Urinary incontinence Osteoma Hypertension Neuropathy Chronic pain Degenerative joint disease Chronic leg pain Hypomagnesemia Hyperparathyroidism Plantar fasciitis Thyroid nodule Obstructive nephropathy Incisional hernia Herpes simplex Diarrhea Vaginitis Acute stress disorder PTSD (post-traumatic stress disorder) Per pt. states triggers for her are loud noises, and slammed doors Cirrhosis of liver Other chromoabnormalities of urine Former smoker quit smoking 07/23/16 Depression Cardiomyopathy Urinary incontinence, mixed Obsessive compulsive disorder Vaginal wall prolapse Congestive heart failure Anemia Sleep apnea Sarcoidosis Anxiety Congenital ureterovesical obstruction Diabetes mellitus Kidney stone Essential hypertension Medical History Comments:: Per pt. does not like Ketamine. Per pt. states she had a hard time waking up, and does not luke Fentanyl, takes a long time waking up, and she needs to know whats happening to stay safe Surgical History Surgical History History of tooth extraction History of resection of small bowel r/t obstruction H/O parathyroidectomy History of hernia repair S/P total left hip arthroplasty (04/18/23) Tonsillectomy and adenoidectomy Open Carpal Tunnel release Oophrectomy, Both Lithotripsy Abdominal hysterectomy Fracture, Open Treatment Cholecystectomy Tobacco Smoking/Tobacco Use Status: Former Tobacco Use Alcohol Alcohol Intake: former Substance Use Substance use: Rarely Substance use type: marijuana Details: Cannabis gummies. Vital Signs and Lab Results Lab Results Blood Type / Crossmatch: No Data to Display Complete Blood Count: White Blood Count 10.40 10^3/uL (4.4-10.8) 08/07/24 09:00 Red Blood Count 4.06 10^6/uL (3.93-5.22) 08/07/24 09:00 Hemoglobin 12.9 g/dL (11.2-15.7) 08/07/24 09:00 Hematocrit 39.8 % (36.0-46.0) 08/07/24 09:00 Platelet Count 182 10^3/uL (130-400) 08/07/24 09:00 Complete Metabolic Panel: Sodium 141 mmol/L (136-145) 08/07/24 09:00 Potassium 4.2 mmol/L (3.5-5.1) 08/07/24 09:00 Chloride 105 mmol/L (98-107) 08/07/24 09:00 Carbon Dioxide 25.6 mmol/L (21.0-32.0) 08/07/24 09:00 BUN 10 mg/dL (7-18) 08/07/24 09:00 Creatinine 0.9 mg/dL (0.55-1.02) 08/07/24 09:00 Est GFR (CKD-EPI 2020) 71.39 (mL/min/1.73m2) 08/07/24 09:00 Magnesium 1.4 mg/dL (1.8-2.4) L 08/07/24 09:00 Calcium 9.4 mg/dL (8.5-10.1) 08/07/24 09:00 Albumin 3.8 g/dL (3.4-5.0) 07/31/24 11:55 Glucose 135 mg/dL (74-106) H 08/07/24 09:00 Hemoglobin A1c 6.0 % (<5.7) H 08/07/24 09:00 Liver Function Panel: Alanine Aminotransferase (ALT/SGPT) 20 U/L (14-59) 07/31/24 11:55 Aspartate Amino Transf (AST/SGOT) 26 U/L (15-37) 07/31/24 11:55 Coagulation Panel: No Data to Display Cardiac Panel: No Data to Display Arterial Blood Gas: No Data to Display Venous Blood Gas: No Data to Display Pancreas Panel: No Data to Display Thyroid Panel: No Data to Display Infectious Disease: No Data to Display Blood Cultures: No Data to Display Toxicology Panel: No Data to Display Imaging and Studies Imaging and Studies Study information below may be from another EMR and interpreted by another provider. Please see original notes in EMR for more complete details. EKG Summary: 03/16/24: Conclusion Sinus rhythm Rate 79 LBBB, morphology unchanged from prior EKG No STEMI I have reviewed and I agree with the emergency room physician's ECG interpretation. Stress Test Summary: Stress ECG Conclusion 1. Resting electrocardiogram showed left bundle branch block 2. Patient underwent pharmacologic stress with regadenoson, coupled with low-level exercise 3. Peak heart rate achieved was 66% of predicted for age 4. The electrocardiographic portion of the test was nondiagnostic due to inadequate heart rate and resting left bundle branch block 5. See MPI report 11/07/21 Echocardiogram Summary: 08/07/24: Conclusion Moderately dilated left ventricle. Normal left ventricular wall thickness. EF is 40 to 45%. No segmental wall motion abnormalities are identified Right atrium and right ventricle are not well-visualized Left atrium is borderline dilated There is no structural or hemodynamically significant valvular disease Mildly dilated ascending aorta 3.42 cm Overall the echocardiogram appears similar to several previous done at [facility] earlier in 2023 Pulmonary Function Summary: 10/31/16: Normal PFT Anesthesia Assessment and Plan Anesthesia History Personal History: No History of Anesthesia Complications Family History: No Family History of Anesthesia Complications Exercise Tolerance Exercise Tolerance: Metabolic Equivalents<4 Pertinent Negatives Pertinent Negatives: No Major Pulmonary Symptoms or Complaints Cardiac & Pulmonary Exam Cardiac Exam: Normal S1/S2 Heart Sounds Pulmonary Exam: Clear Bilateral Breath Sounds Implantable Cardiac Device Does patient have a Pacemaker or an ICD?: No Airway Exam Known Difficult Airway: No Mallampati Class: 2 Mouth Opening: Normal (> 3cm) Thyromental Distance: Greater than 3 cm Neck Range of Motion: Full ROM Neck Circumference: Normal Teeth Condition: Normal Dentition (3 missing teeth, none loose) ASA Classification ASA Score: ASA 3 Emergency Case?: No NPO Status NPO Status: NPO Clears >2 hours, Solids >8 hours Anesthesia Plan Resuscitation Status: Full Code Anesthesia Technique: General Anesthesia Airway Planned: Endotracheal Tube Monitors Used: Standard Monitors, Arterial Line (If indicated) and SedLine Preoperative Comments:: Patient with complex medical history to include acute renal failure/sepsis/ with asystolic events and demand ischemia in October 2023. The patient was subsequently transferred to [facility] for management and [facility]. The patient has had extensive conversation with both her PCP (note reviewed) as well as the orthopedic team regarding her high risk for WILMA. Spoke with the patient for approximately 25 minutes for preoperative discussion about her wishes and anesthetic plan for this morning. Discussed use of anesthetic medications (to potentially include IV Magnesium and Remifentanil) and will be proceeding with GA/ETT today with 2nd IV and +/- arterial line is clinically indicated. Patient understands she will be a full code during perioperative period.
[2024-08-13] MEDS: Acetaminophen 500 MG TAB 1000 MG PO ×3 (06:45→20:22)
[2024-08-13] MEDS: Celecoxib 200 MG CAP 400 MG PO (06:45)
[2024-08-13] MEDS: Lactated Ringers 1,000 ML 80 ML IV (06:55)
--- NOTE | 2024-08-13 07:14 | W.PM.DSUDISC ---
Date of service: 08/13/24 Discharge Plan Disposition Condition: Good Discharge Details Reason For Visit: Right hip DJD Admit Date/Time: 08/13/24 11:10 Admit Provider: Hossein Turner Attending Provider: Hossein Turner Primary Care Provider: Trev Burr Home Meds and New Rx's Prescriptions: New acetaminophen 500 mg tablet 1,000 mg PO Q8H PRN Qty: 90 0RF Rx Instructions: Take two tablets up to every 8 hours as needed for pain docusate sodium [Colace] 100 mg capsule 100 mg PO BID Qty: 30 0RF celecoxib [Celebrex] 200 mg capsule 200 mg PO BID PRNQty: 60 0RF Rx Instructions: Take one tablet twice daily for pain and inflammation pantoprazole 40 mg tablet,delayed release (DR/EC) 40 mg PO DAILY Qty: 14 0RF dexamethasone 4 mg tablet 4 mg PO DAILY Qty: 2 0RF Rx Instructions: Take one tablet once daily for two days oxycodone 5 mg tablet 5 mg PO Q6H PRNQty: 12 0RF Rx Instructions: Take one tablet up to every 6 hours as needed for severe postoperative pain Continued multivitamin Tablet 1 tab PO DAILY insulin glargine [Basaglar KwikPen U-100 Insulin] 100 unit/mL (3 mL) insulin pen 15 unit subcut QAM Patient Comments: 15 Q AM, 13 Q PM vitamin B complex [B Complex-Vitamin B12] Tablet 1 tab PO DAILY estradiol [Estrace] 0.01 % (0.1 mg/gram) cream 1 appful vaginal DAILY Qty: 42.5 4RF Rx Instructions: daily for 2 weeks then twice weekly carvedilol 25 mg tablet 50 mg PO BID Rx Instructions: must administer with a meal/food Mounjaro 2.5 mg/0.5 mL pen injector 5 mg subcut QWEEK Rx Instructions: for 4 weeks sodium bicarbonate 650 mg tablet 1,300 mg PO BID Fiasp FlexTouch U-100 Insulin 100 unit/mL (3 mL) insulin pen 1 sliding scale dose subcut USEASDIRECTD pravastatin 10 mg tablet 5 mg PO DAILY furosemide 20 mg tablet 20 mg PO DAILY gabapentin 600 mg tablet 1,200 mg PO TID acyclovir 5 % cream 1 applic TP ONCE PRN Patient Comments: over weekend diclofenac sodium [Voltaren] 1 % gel 2 gm TP QID PRN ferrous sulfate [Iron (ferrous sulfate)] 325 mg (65 mg iron) tablet 325 mg PO DAILY duloxetine 20 mg capsule,delayed release(DR/EC) 60 mg PO DAILY Patient Comments: taking 30mg PO once a day aspirin 325 mg tablet 162.5 mg PO DAILY nitroglycerin 0.4 MG tablet, sublingual 0.4 mg Sublingual PRN Patient Comments: 05/04/14: Pt carries NTG but has never had to use it. PG valacyclovir 1 gram tablet 1,000 mg PO DAILY Patient Comments: not currently taking clotrimazole-betamethasone 1-0.05 % cream 1 applic topical BID 10 Days Qty: 15 2RF Patient Comments: not currently taking this medication levalbuterol tartrate 45 mcg/actuation HFA aerosol inhaler 2 inh inhalation Q6H PRN Rx Instructions: Q4-6H PRN spironolactone 25 mg tablet 25 mg PO DAILY metformin 1,000 mg tablet 1,000 mg PO BID mupirocin calcium 2 % cream 1 applic topical BID Qty: 30 0RF insulin lispro [Humalog KwikPen Insulin] 100 unit/mL insulin pen 30 unit SUBCUT TID Patient Comments: INJECT UP TO 30 UNITS UNDER THE SKIN THREE TIMES A DAY BEFORE MEALS, USING CARBOHYDRATE COUNTING Rx Instructions: Inject up to 30 units before meals TID using carbohydrate counting. meclizine [Antivert] 25 mg tablet,chewable 25 mg PO Q6H PRN ondansetron HCl 4 mg tablet 4 mg PO Q6H PRN Patient Comments: TAKE ONE TABLET BY MOUTH EVERY 6 TO 8 HOURS NEEDED NVA Rx Instructions: Q6-8 hours PRN Discontinued hydrocodone-acetaminophen 7.5-325 mg tablet 1 tab PO BID PRN acetaminophen 500 mg tablet 500 mg PO DIRECTED ibuprofen 200 mg capsule 800 mg PO Q6H PRN Discharge Instructions Additional Instructions: Total Hip Discharge Instructions Activity: The most important activity is to walk. You should try to take short walks a few times a day. You have no restrictions on movement or positioning, but do not try to force what you do. You will find some stiffness and weakness with hip flexion (lifting your knee). Do not try to strengthen this too early, continue to practice walking and stairs and this will come. - Outpatient physical therapy can be helpful to help return you to a normal gait and improve your flexibility and strength. This can start around 2 weeks. For some patients, it?s not necessary. Usually this is determined at the time of discharge or at the first post-operative visit. - You should wear the ARIES hose on both legs for 2 weeks. Dressing: Keep the surgical dressing in place for at least one week. After the first week it may be removed and replace with light gauze and tape or nothing. It may get wet after 3 days but avoid soaking the dressing. If it gets wet, just lightly pat dry. It is important to always keep some gauze between skin folds, especially when you are sitting. Spend some time with the wound exposed when you are lying flat as the incision does wrinkle onto itself. Medications: - You should take Tylenol and an anti-inflammatory Celebrex as your primary pain control medications. If the Celebrex is too expensive or not covered, please call the office for another alternative (Advil/Ibuprofen or Naproxen/Aleve). - You have been prescribed a stronger pain medication Oxycodone for breakthrough pain, take as needed as prescribed. - You have also been prescribed a stomach acid reduction agent Pantoprozole to help reduce stomach acid and reflux. - You have also been prescribed Decadron to help with post-operative nausea and pain. You will take this for two days starting tomorrow. - You resume taking your baseline Aspirin tomorrow for DVT prevention unless instructed otherwise. - If you have constipation you should take Colace (which has been prescribed) or Miralax (which is available [id number]). It takes most people 3-4 days to have a bowel movement. Follow-up: 2 weeks If you have any acute concerns or questions, please do not hesitate to contact the office at [phone]. You may contact Dr. Turner with any questions after hours through the hospital at [phone] or on his cell phone at [phone]. Referrals: Hossein Turner MD [ [facility] STAFF PHYSICIAN] - Equipment/Supplies: Walker Activity:: Activity as Tolerated Remove Dressings/Wound Care:: Do Not Remove Shower/Bathe:: Cover Diet:: As Tolerated
[2024-08-13] MEDS: ceFAZolin 3,000 MG in Normal Saline 100 ML 200 MG IV (07:48)
[2024-08-13] MEDS: TRANEXAMIC ACID/SOD. CHL. 1,000 MG/100 ML BAG 600 MG IVPB ×2 (08:03→09:14)
--- NOTE | 2024-08-13 09:15 | DI.RAD_ITS ---
Exam(s) XR HIP RT IN OR EXAM: XR HIP RT IN OR CLINICAL HISTORY: RIGHT HIP OA. TECHNIQUE: 2D digital imaging was performed. COMPARISON: No exams were available for comparison FINDINGS: Fluoroscopy was provided intraoperatively during right hip arthroplasty. See procedure report for de tails. IMPRESSION: Radiation exposure index/cumulative dose:vikas Clements=8.7538mGy DATA REPOSITORY: RADIATION DOSE DELIVERED:
[2024-08-13] MEDS: HYDROmorphone 1 MG/ML SYR IVP ×2 (10:04→10:17)
--- NOTE | 2024-08-13 11:11 | W.PC.ACHO ---
Registration Status: Primary Language: Preferred Language: Medical / Surgical History (Last Reviewed 08/13/24 @ 06:25 by Mayte Silva) Osteoarthritis of hips, bilateral Calcium nephrolithiasis Bile acid malabsorption syndrome History of palpitations CAD (coronary artery disease) Vertigo Chronic lower back pain Urinary incontinence Osteoma Hypertension Neuropathy Chronic pain Degenerative joint disease Chronic leg pain Hypomagnesemia Hyperparathyroidism Plantar fasciitis Thyroid nodule Obstructive nephropathy Incisional hernia Herpes simplex Diarrhea Vaginitis Acute stress disorder PTSD (post-traumatic stress disorder) Cirrhosis of liver Other chromoabnormalities of urine Former smoker Depression Cardiomyopathy Urinary incontinence, mixed Obsessive compulsive disorder Vaginal wall prolapse Congestive heart failure Anemia Sleep apnea Sarcoidosis Anxiety Congenital ureterovesical obstruction Diabetes mellitus Kidney stone Essential hypertension (Last Reviewed 08/13/24 @ 06:25 by Mayte Silva) History of tooth extraction History of resection of small bowel H/O parathyroidectomy History of hernia repair S/P total left hip arthroplasty (04/18/23) Tonsillectomy and adenoidectomy Open Carpal Tunnel release Oophrectomy, Both Lithotripsy Abdominal hysterectomy Fracture, Open Treatment Cholecystectomy Most Recent Vital Signs Temperature 36.4 C L 08/13/24 10:35 Pulse 58 L 08/13/24 10:51 Pulse Rhythm Regular 08/13/24 06:00 Pulse 60 08/13/24 10:55 Respiratory Rate 15 08/13/24 10:55 Respiratory Depth Normal 08/13/24 06:00 Blood Pressure 116/50 L 08/13/24 10:51 Blood Pressure Mean 69 08/13/24 10:51 Pulse Oximetry 89 L 08/13/24 10:55 Respiratory End-tidal CO2 30 08/13/24 10:55 Oxygen Delivery Method Room Air 08/13/24 10:50 Oxygen Flow Rate 2 08/13/24 10:20 Pain Level 6 08/13/24 10:50 Allergies erythromycin base Allergy (Severe, Verified 08/13/24 06:18) hives pt states been 30 years since allergy reaction Sulfa (Sulfonamide Antibiotics) Allergy (Severe, Verified 08/13/24 06:18) hives sulfamethoxazole (From Bactrim) Allergy (Verified 08/13/24 06:18) Other (See Comment) Unsure of reaction trimethoprim (From Bactrim) Allergy (Verified 08/13/24 06:18) Other (See Comment) Pt unsure of reaction magnesium Adverse Reaction (Severe, Verified 08/13/24 06:18) Diarrhea nitrofurantoin (From Macrobid) Adverse Reaction (Severe, Verified 08/13/24 06:18) depression clomipramine (From Anafranil) Adverse Reaction (Intermediate, Verified 08/13/24 06:18) Other (See Comment) flu symptoms ketamine Adverse Reaction (Intermediate, Verified 08/13/24 06:18) hallucinations Active Medications Generic Name Dose Route Start Last Admin Trade Name Freq PRN Reason Stop Dose Admin Acetaminophen 1,000 mg 08/13/24 06:00 08/13/24 06:45 Acetaminophen 500 Mg Tab PO 08/13/24 23:59 1,000 mg PREOP BERT Administration Celecoxib 400 mg 08/13/24 06:00 08/13/24 06:45 Celecoxib 200 Mg Cap PO 08/13/24 23:59 400 mg PREOP BERT Administration Hydromorphone HCl 0 mg 08/13/24 08:39 08/13/24 10:17 Hydromorphone 1 Mg/Ml Syr IVP 09/12/24 08:38 0.5 mg DIRECTED PRN Administration Cefazolin Sodium 3,000 mg/ 100 mls @ 200 mls/hr 08/13/24 06:00 08/13/24 08:03 Sodium Chloride IV 08/13/24 23:59 Infused PREOP BERT Infusion Tranexamic Acid/Sodium Chloride 1,000 mg in 100 mls @ 600 mls/hr 08/13/24 06:00 08/13/24 09:18 IVPB 08/13/24 23:59 Infused PREOP BERT Infusion Ringer's Solution 1,000 mls @ 80 mls/hr 08/13/24 07:00 08/13/24 09:26 IV 09/12/24 06:59 80 mls/hr INFUSION BERT Infusion IV IV Catheter Type [Left Hand] Saline Lock IV Catheter Type [Right Hand] Peripheral IV IV Catheter Gauge [Left Hand] 20 IV Catheter Gauge [Right Hand] 20 Diet Orders Category Date Time Status Diabetes Consistent CHO [DIET] Nutrition 08/13/24 Lunch Active [id number] Documentation Fingerstick Glucose Start: 08/13/24 06:56 Freq: Status: Active Protocol: Activity Type Activity Date Activity User E-sign Co-sign Detail Recorded Client Recorded Date Recorded By Document 08/13/24 06:56 CLW [id number] 08/13/24 06:56 CLW Fingerstick Glucose Start: 08/13/24 06:58 Freq: Status: Active Protocol: Activity Type Activity Date Activity User E-sign Co-sign Detail Recorded Client Recorded Date Recorded By Document 08/13/24 10:11 BKG DAEMON(3) [id number] 08/13/24 10:12 BKG DAEMON(4) Intake and Output - 24 Hour Total 07/29/24 09:38 thru 08/13/24 09:26 Intake Total 1000 Output Total 600 Balance 400 Weight 128.1 kg Intake: IV 1000 Output: Estimated Blood Loss 600 v v v v v v v v v Sending and/or Receiving Nurses: Please use comment section below to note any information pertinent to the patient hand-off not included above. Information / Comments: Report received from: Jacinda ADAMS (PACU)
--- NOTE | 2024-08-13 12:46 | W.ANESPOSTOP ---
Postoperative Evaluation Date, Time and Location Date Performed: 08/13/24 Time Performed: 10:35 Patient Location: PACU Vital Signs Most Recent Imported Vital Signs: Most Recent Vital Signs Temp Pulse Resp BP Pulse Ox 36.6 C 59 L 18 100/44 L 96 08/13/24 12:30 08/13/24 12:30 08/13/24 12:30 08/13/24 12:30 08/13/24 12:30 Pain Score Most Recent Pain Score: Most Recent Pain Score Pain Level 7 08/13/24 11:12 Assessment Mental Status: Awake (Alert & Oriented to Patient Baseline) Airway and Respiratory Function: Patent airway with normal (patient baseline) respiratory exam Cardiovascular Function: Hemodynamically Stable Hydration Status: Adequately Hydrated Nausea & Vomiting: No Nausea or Vomiting Pain: Pain is Moderate or Severe Postoperative Pain Management: Pain being addressed with medication Peripheral Nerve Block: Patient did not receive a nerve block
[2024-08-13] MEDS: Gabapentin 600 MG TAB 1200 MG PO ×2 (13:30→20:22)
[2024-08-13] MEDS: Ferrous Sulfate 325 MG TAB PO (13:47)
[2024-08-13] MEDS: Insulin Aspart 300 UNITS/3 ML PEN SC ×2 (14:00→17:31)
--- NOTE | 2024-08-13 15:30 | IN_ITS ---
PT Notes Visit Reasons: Right hip DJD Physical Therapy Day Surgery Initial Evaluation Date: 08/13/2024 Referring Doctor: Dr. Johnny López PT Orders: PT CONSULT: Status post Ortho surgery Precautions: WBAT RLE, activities as tolerated,TEDS x 2 weeks Patient Profile/Admitting Diagnosis: Patient is 63-year-old female presenting status post elective right WILMA by Dr. Turner on 08/13/2024. Postop patient required use of O2 at rest due to saturations below 89% on room air. PMHX: Lumbar radiculopathy SVT, sepsis, pyelonephritis, paroxysmal atrial flutter, lipoma, lateral epicondylitis right elbow, peripheral neuropathy, DM, OA, history of UTIs with gross hematuria, rotator cuff tendinitis, hydronephrosis, morbid obesity, leukocytosis, renal insufficiency, incarcerated incisional hernia, OA bilateral knees Social History/Home Situation: Patient reports she resides alone 1 level home 4 steps to enter with a rail which she performs with a single-point cane as well. Patient independent with ADLs, light meal prep, ambulation with four-wheel walker/rollator which is able to get to all of the rooms except her bathroom. She ambulates with a cane into the bathroom. Patient independent with med management. Patient has friend who provides transportation once a month for grocery shopping and medical appointments. 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 Equipment Owned/DME: FWW, multiple canes, 2 rollators, grab bars near toilet and shower, hand-held shower, shower chair Subjective: Patient reports she is staying overnight due to not having someone to stay with her postop. Objective: [] General Observation: Patient presented semireclined in bed ice to right hip. Oxygen in place at 2 L. Nurse present. Sat noted to be 98% on 2 L therefore O2 removed. Treatment session conducted without oxygen Mental Status: Alert and oriented x 4 cooperative motivated willing to participate in evaluation Pain: 09/01 right hip Vitals O2 sat on room air at rest 95% with activity 90 to 93% on room air ROM: [] Right Upper Extremity: WFL Left Upper Extremity: WFL Right Lower Extremity: Hip flexion 0-90, abduction 10 degrees, hip extension 5 degrees knee and ankle within normal limits Left Lower Extremity: WFL Strength: [] Right Upper Extremity: 5/5 Left Upper Extremity: 5/5 Right Lower Extremity: Hip flexion: 3 -/5; hip abduction: 3 -/5; hip extension: 3 -/5; knee extension: 3/5; knee flexion: 2+/5 ankle DF: 3/5 ; ankle PF: 3/5 Left Lower Extremity:Hip flexion: 5/5; hip abduction: 4/5; hip extension: 4/5; knee extension:4/5; knee flexion: 3/5 ankle DF: 3/5 ; ankle PF: 3/5 Sensation: Intact Bed Mobility/Transfers: [] Supine to sit CGA with increased time Sit to stand SBA Stand to sit SBA Bed to chair SBA with FWW Gait: Patient ambulated 200 feet with FWW standby assist with slow lily equal step length requiring 3 stand rest on level surfaces including turns. Balance: [] Static Sitting: Normal Dynamic Sitting: Good Static Standing: Good Dynamic Standing: Fair plus Special Tests: [] Mobility Limitations Standardized Measure [] [facility] 6 clicks Basic Mobility Inpatient Short Form: [] Raw Score: 19 CMS Score: 41.77% Informed Consent/Education: Patient instructed in purpose of PT consult. Packet containing WILMA exercise protocol has been given to patient. Education and training on initial set of exercises that can be done at home have been completed with patient. Assessment: Patient is a 63 yo female who presents with clinical signs and symptoms consistent with current/admitting diagnoses that have resulted to mobility limitations, gait instability, generalized weakness, and impairment of motor control as demonstrated by the following impairment level findings: 1. Decreased strength to left knee major muscle groups 2. Impaired standing balance 3. Limitation of joint range of motion in left knee Impairments are contributing to the following functional limitations: 1. Inability to safely ambulate without assistive device 2. Increase completion time for mobility ADL performance 3. Increased fall risk Patient is assessed as moderate complexity based on the following: History: 63-year-old female with impairment level findings, functional limitations, and past medical history as indicated above Examination: Demonstrable impairment in strength, balance, and mobility level with underlying impairments and functional limitations as documented above Presentation:evolving Decision Making: moderate Goals: 1. supervision 4 steps with rail and SPC 2 Modified Independent amb 300 feet with FWW level surfaces including turns and obstacle management 3. Independent transfers with FWW 4. Independent with written HEP for WILMA protocol Plan of Care/Treatment Plan: . PT evaluation and 1-2 treatment session only for functional mobility training using recommended AD and for HEP instruction. DISCHARGE RECOMMENDATIONS: Home with HH PT TREATMENT CODE/TIME: [id number] Thank you for the opportunity to participate in the care of this patient. Zoraida Dugan, PT [facility]
--- NOTE | 2024-08-13 15:33 | ROE_ITS ---
Operative Note Operative Note PRE-OP DIAGNOSIS: RIGHT Hip Osteoarthritis POST-OP DIAGNOSIS: same PROCEDURE: Right Anterior Total Hip Arthroplasty with Intraoperative Navigation SURGEON: Hsosein Turner ARRANGER ASSEMBLER: Ida Curtis ANESTHESIA TYPE: Spinal Refer to Anesthesia Record ESTIMATED BLOOD LOSS: 600 PATHOLOGY: none sent TOURNIQUET TIME: 0 COMPLICATIONS: None Patient was transported to: PACU Patient's condition: stable Implants: 1. Depuy [place] Acetabular Component, 52mm 2. Depuy Acetabular Liner, [id number] 3. Depuy Actis Standard Collared Femoral Stem, Size 7 4. Depuy Altrx Ceramic Femoral Head, Size 36+5mm Indications: I have seen Sakshi in clinic for symptoms of hip arthritis, confirmed with radiographic findings. She has exhausted nonoperative methods and was having significant limitations in daily function and desired better function and less pain. I discussed the technical details of a hip replacement. I explained the risks of the procedure to include, but not limited to, bleeding, infection, pain, stiffness, fracture, damage to nerves and vessels, damage to muscles and tendons, loosening, instability, leg length inequality, need for repeat procedure, blood clot and cardiopulmonary demise. Despite these risks, Sakshi elected to proceed. Findings: There was significant signs of arthritis throughout the hip. There is significant amount of oozing from the bone cut surfaces which led to slightly higher than usual blood loss. Procedure Description: Sakshi was greeted in the preoperative holding area where the correct side was identified and marked. The consent was reviewed with the patient and signed. The history and physical was updated. All questions were answered. She was taken back to the operating room. A general anesthetic was then administered. The feet were wrapped with cast padding and Coban and then placed into the boot liners and then into the boots. Care was taken to protect the skin and make sure the heels were fully down and the boots were stable. The patient was then positioned onto the HANA table. Both legs were held in a neutral position. SCDs were applied. The patient was then slid down onto a peroneal post. Prophylactic antibiotics in the form of Cefazolin were administered. 1g of Tranxemic Acid was given intravenously within 30 minutes of incision. The left leg was then prepped with Chloraprep and draped in a standard fashion. A second prep with Chloraprep was performed prior to placement of a shower-curtain type drape with Iodine impregnated skin protection. A timeout to confirm correct identity, side and site, procedure, allergies, anesthesia, and medical concerns was performed. An obliquely oriented incision was made starting lateral to the ASIS and running distal over the Tensor Fascia Rachelle (TFL) muscle belly toward the fibular head, approximately 10cm. The skin and soft tissue was dissected sharply, through Uye?s fascia, and to the fascia of the TFL. With the fascia and superior border of the IT band identified, the fascia was incised with a new knife just above any perforators from the IT band. The TFL muscle belly was bluntly dissected away from the fascia and moved laterally. The fat between TFL and rec tus was identified to ensure the dissection was not within the TFL. Blunt dissection created space between abductors and the capsule and retractor was placed over the lateral femoral neck. The fibers of the rectus femoris tendon were identified and these were freed from the anterior capsule. A second cobra retractor was placed around the medial femoral neck. The TFL was further retracted laterally to show the deep fascia. Careful dissection through this layer identified three main crossing vessels of the lateral femoral circumflex. These were cauterized in multiple locations and then cut without any noticeable bleeding. The TFL was further released bluntly from the deep fascia to expose anterior hip capsule and fat The Joe orthopaedic retractor was then placed beneath the TFL and against sartorius and medial soft tissues to protect and retract the soft tissues. A T-capsulotomy was then performed starting at the superior lateral acetabulum and moving distally to the intertrochanteric ridge. These capsular flaps were tagged with a No. 1 Ethibond and elevated from within. The capsular flaps were released to the shoulder of the lateral neck and to the lesser trochanter to give excellent visualization of the proximal femur. A neck osteotomy was performed using an oscillating saw based on preoperative templates. This cut started in the shoulder and of the lateral neck and exited medially. The saw was at all times directed medially to avoid injury to the greater trochanter. Gross traction was applied to the leg and the osteotomy opened. The femoral head was removed with a corkscrew, making sure to protect the TFL on its exit. Traction was released after head removal. This was measured on the back table to determine the starting reamer size. Portions of the rectus obscuring visualization were minimally elevated off the superior acetabulum. An anterior retractor was placed over the anterior wall between capsule and labrum and attached to the Gripper retraction system. The femur was rotated to 90 degrees and medial capsule was fully released until the lesser trochanter was palpable and visible; the femur was returned to 30 degrees. A posterior retractor was placed similarly between capsule and labrum. This provided excellent visualization. The contents of the cotyloid fossa were removed with electrocautery and the labrum was removed with a knife. There was a notable floor osteophyte. There was significant chondromalacia of the superior acetabulum. Acetabular reaming began with a 44mm reamer. This first reaming was directed anterior to posterior and medial to get down to the true floor. This was inspected and reamed until the true floor was reached. The anterior retractor was then released and entry and exit was provided by traction on the capsular flaps. I then reamed sequentially up to a 52mm reamer where good fit was obtained. The larger reamers were oriented based on anatomical reference of the anterior and lateral mckeon to ensure proper abduction and anteversion. Positioning and size was confirmed with the fluoroscopy. A 52mm Depuy [place] acetabular component was selected. The acetabulum was reamed around the periphery with the selected acetabular size to prevent a rim fit. The deep tissues were irrigated. The acetabular component was then impacted in a position of about 40-45 degrees of abduction and 15-20 degrees of anteversion, using the patient?s anatomy as the ultimate landmark. Fluoroscopy was used to confirm this. There was excellent laborer construction or leak gang of the acetabular component and the inserting handle was removed. The acetabular liner, Depuy [id number] polyethylene liner, was inserted and lined up with the tines of the acetabular component. There was no soft tissue interposition. The liner was then impacted into position and confirmed to be well-seated. A portion of the jason-articular cocktail was then injected around the acetabulum into the capsule and periosteum. This cocktail consisted of 123mg of Ropivacaine, 0.25mg of Epinephrine, 0.04mg of Clonidine, and 15mg of Ketorolac, diluted to 50cc. The leg was rotated to 120 degrees. Any remaining medial capsule was released until the lesser trochanter was easily palpable. A retractor was placed medially. The lateral capsule was further released into the shoulder to allow access to the greater trochanter. A Rodriguez retractor was placed over the greater trochanter which allowed the trochanter to flip in front of the capsule for excellent exposure. The leg was brought down into maximal extension and 20 degrees of adduction while ensuring there was no impingement on the acetabulum. Any remnant capsule within the trochanter was released. Piriformis and obturator externis were identified and protected. There was excellent access to the proximal femur. The lateral neck remnant was removed with a rongeur. A blunt canal probe was used to identify the canal and trajectory for later broaching. A box osteotome initiated the broach course. A small curved rasp and a curved curette were used to work laterally. Broaching then began with a starter Actis broach. This was inserted manually around the trochanter and into the canal before mallet blows. The broach was seated to a few millimeters below the cut level based on the neck cut and the preoperative template. Sequential broaching was continued with the [employer] [place] pneumatic broaching device until a tight fit was obtained with good rotational control of the femur. A trial standard neck was inserted along with a +5 trial head. The leg was brought out of extension and adduction and then reduced with traction and internal rotation. The leg was stable anteriorly in a position of 30 degrees of extension and 90 degrees of external rotation. Fluoroscopy was used to ensure there was no fracture and the stem was seated well. Leg lengths were checked with an AP pelvis and pelvic reference points. [employer] navigation system was used to confirm appropriate positioning and leg length and offset. Once content with the desired offset and leg lengths, the leg was brought back into extension, external rotation and adduction. The periosteum and surrounding tissue was injected with remaining portion of the jason-articular cocktail. The proximal femur was irrigated as well as the deep tissues. The [place] nfonis standard collared stem, size 7, was then manually inserted into the proximal femur making sure to control rotation. It was then malleted into position with light blows, giving breaks to allow bone expansion and decrease risk of fracture. The selected Depuy Altrx Ceramic Head, size 36+5mm, was then placed onto the clean and dry trunnion and secured with impaction onto the tapered fit. The leg was brought back out of extension and adduction and reduced with traction and internal rotation. Stability was confirmed with no shuck at 90 degrees of external rotation and 30 degrees of extension. No impingement through range of motion arc. Final x-ray images were obtained with fluoroscopy to confirm adequate positioning and no intraoperative fracture. There was some excessive blood loss although without true source except from within the bone. Bleeding was controlled by the end the case and once the implants were in. The deep tissues were thoroughly irrigated with Surgiphor, betadine solution. This was allowed to sit in the wound for 3 minutes before being thoroughly irrigated out with normal saline. The capsule was then reapproximated with the previously placed Ethibond sutures. The TFL fascia was finally closed with a No. 2 Stratafix, barbed suture. Deep tissues were then reapproximated with 0 Vicryl and a running 2-0 Vicryl. The skin was closed with a running 4-0 Monocryl in a subcuticular fashion. This was reinforced with skin glue. A Mepilex silver dressing was applied. At the end of the case, all counts were correct. Sakshi was transferred to the hospital bed without difficulty and suffering some increased blood loss but no other complication. Sakshi has a good prognosis. Physical therapy will start today and without restrictions, weight-bearing as tolerated. Aspirin 325mg daily will be used for DVT prophylaxis. Date of Procedure: 08/13/24
[2024-08-13] MEDS: ceFAZolin 1 GM/50 ML BAG IVPB ×2 (16:32→23:18)
[2024-08-13] MEDS: metFORMIN C.R. 500 MG TABCR 1000 MG PO (16:32)
[2024-08-13] MEDS: Tranexamic Acid 650 MG TAB 1300 MG PO (20:23)
[2024-08-13] MEDS: Celecoxib 200 MG CAP PO (20:23)
[2024-08-13] MEDS: Carvedilol 12.5 MG TAB 25 MG PO (20:23)
[2024-08-13] MEDS: Sodium Bicarbonate 650 MG TAB 1300 MG PO (20:23)
[2024-08-13] MEDS: Mupirocin 2% 15 GM TUBE TP (20:24)
[2024-08-13] MEDS: oxyCODONE 5 MG TAB PO (23:17)
[2024-08-13] MEDS: Normal Saline Flush 10 ML SYR IV (23:18)
[2024-08-14 02:53] VITALS: BP 118/69; PULSE 66; RESP 18; TEMP 36.4; O2SAT 92
[2024-08-14 06:24] LABS: HCT 31.1 % (36.0-46.0); HGB 10.5 g/dL (11.2-15.7); MCH 32.2 pg (27.0-33.0); MCHC 33.8 % (32.0-36.0); MCV 95 fL (80-95); Platelet Count 128 10^3/uL (130-400); RBC 3.26 10^6/uL (3.93-5.22); RDW 12.8 % (11.7-14.6); RDW-SD 44.3 fL; WBC 13.09 10^3/uL (4.4-10.8)
[2024-08-14 06:39] LABS: Anion Gap 9.3 mmol/L (3-11); BUN 33 mg/dL (7-18); CO2 24.7 mmol/L (21.0-32.0); CREATININE 1.5 mg/dL (0.55-1.02); Calcium 9.5 mg/dL (8.5-10.1); Chloride 102 mmol/L (98-107); Estimated GFR 38.67 (mL/min/1.73m2); Glucose 224 mg/dL (74-106); Potassium 4.4 mmol/L (3.5-5.1); Sodium 136 mmol/L (136-145)
[2024-08-14] MEDS: Acetaminophen 500 MG TAB 1000 MG PO (08:04)
[2024-08-14] MEDS: DULoxetine 30 MG CAP PO (08:05)
[2024-08-14] MEDS: Spironolactone 25 MG TAB PO (08:05)
[2024-08-14] MEDS: Carvedilol 12.5 MG TAB 25 MG PO (08:05)
[2024-08-14] MEDS: Furosemide 20 MG TAB PO (08:05)
[2024-08-14] MEDS: Gabapentin 600 MG TAB 1200 MG PO (08:06)
[2024-08-14] MEDS: Sodium Bicarbonate 650 MG TAB 1300 MG PO (08:06)
[2024-08-14] MEDS: Pantoprazole 40 MG TABCR PO (08:06)
[2024-08-14] MEDS: Dexamethasone 4 MG TAB PO (08:06)
[2024-08-14] MEDS: Celecoxib 200 MG CAP PO (08:07)
--- NOTE | 2024-08-14 08:07 | W.PM.DS.N ---
Date of service: 08/14/24 Time of Service: 08:08 Discharge Plan Disposition Patient Disposition: Home Condition: Good Discharge Details Reason For Visit: Right hip DJD Admit Date/Time: 08/13/24 11:10 Admit Provider: Hossein Turner Attending Provider: Hossein Turner Primary Care Provider: Trev Burr Hospital Course Hospital Course: Patient was admitted to the medical/surgical floor following the procedure. The surgery was tolerated well without any notable medical, surgical, or anesthetic complications. Mobilization began postoperatively. She was voiding spontaneously. Vitals were stable. Physical therapy worked with the patient and was cleared for discharge home. No acute medical issues. Pain was controlled on oral regimen. Home Meds and New Rx's Prescriptions: New acetaminophen 500 mg tablet 1,000 mg PO Q8H PRN Qty: 90 0RF Rx Instructions: Take two tablets up to every 8 hours as needed for pain docusate sodium [Colace] 100 mg capsule 100 mg PO BID Qty: 30 0RF celecoxib [Celebrex] 200 mg capsule 200 mg PO BID PRNQty: 60 0RF Rx Instructions: Take one tablet twice daily for pain and inflammation pantoprazole 40 mg tablet,delayed release (DR/EC) 40 mg PO DAILY Qty: 14 0RF dexamethasone 4 mg tablet 4 mg PO DAILY Qty: 2 0RF Rx Instructions: Take one tablet once daily for two days oxycodone 5 mg tablet 5 mg PO Q6H PRNQty: 12 0RF Rx Instructions: Take one tablet up to every 6 hours as needed for severe postoperative pain Continued multivitamin Tablet 1 tab PO DAILY insulin glargine [Basaglar KwikPen U-100 Insulin] 100 unit/mL (3 mL) insulin pen 15 unit subcut QAM Patient Comments: pt reports using 15 units QAM only vitamin B complex [B Complex-Vitamin B12] Tablet 1 tab PO DAILY estradiol [Estrace] 0.01 % (0.1 mg/gram) cream 1 appful vaginal DAILY Qty: 42.5 4RF Rx Instructions: daily for 2 weeks then twice weekly Mounjaro 2.5 mg/0.5 mL pen injector 5 mg subcut QWEEK Rx Instructions: for 4 weeks sodium bicarbonate 650 mg tablet 1,300 mg PO BID Fiasp FlexTouch U-100 Insulin 100 unit/mL (3 mL) insulin pen 1 sliding scale dose subcut USEASDIRECTD pravastatin 10 mg tablet 10 mg PO DAILY furosemide 20 mg tablet 20 mg PO DAILY gabapentin 600 mg tablet 1,200 mg PO TID acyclovir 5 % cream 1 applic TP ONCE PRN Patient Comments: over weekend diclofenac sodium [Voltaren] 1 % gel 2 gm TP QID PRN ferrous sulfate [Iron (ferrous sulfate)] 325 mg (65 mg iron) tablet 325 mg PO DAILY aspirin 325 mg tablet 162.5 mg PO DAILY nitroglycerin 0.4 MG tablet, sublingual 0.4 mg Sublingual PRN Patient Comments: 05/04/14: Pt carries NTG but has never had to use it. PG valacyclovir 1 gram tablet 1,000 mg PO DAILY Patient Comments: not currently taking clotrimazole-betamethasone 1-0.05 % cream 1 applic topical BID 10 Days Qty: 15 2RF Patient Comments: not currently taking this medication levalbuterol tartrate 45 mcg/actuation HFA aerosol inhaler 2 inh inhalation Q6H PRN Rx Instructions: Q4-6H PRN spironolactone 25 mg tablet 25 mg PO DAILY mupirocin calcium 2 % cream 1 applic topical BID Qty: 30 0RF insulin lispro [Humalog KwikPen Insulin] 100 unit/mL insulin pen 30 unit SUBCUT TID Patient Comments: INJECT UP TO 30 UNITS UNDER THE SKIN THREE TIMES A DAY BEFORE MEALS, USING CARBOHYDRATE COUNTING Rx Instructions: Inject up to 30 units before meals TID using carbohydrate counting. meclizine [Antivert] 25 mg tablet,chewable 25 mg PO Q6H PRN ondansetron HCl 4 mg tablet 4 mg PO Q6H PRN Patient Comments: TAKE ONE TABLET BY MOUTH EVERY 6 TO 8 HOURS NEEDED NVA Rx Instructions: Q6-8 hours PRN Discontinued hydrocodone-acetaminophen 7.5-325 mg tablet 1 tab PO BID PRN acetaminophen 500 mg tablet 500 mg PO DIRECTED ibuprofen 200 mg capsule 800 mg PO Q6H PRN No Action carvedilol 12.5 mg tablet 25 mg PO BID Patient Comments: TAKE TWO TABLETS BY MOUTH TWICE A DAY metformin 500 mg tablet extended release 24 hr 1,000 mg PO BID Patient Comments: TAKE TWO TABLETS BY MOUTH TWICE A DAY duloxetine 30 mg capsule,delayed release(DR/EC) 30 mg PO DAILY Patient Comments: TAKE ONE CAPSULE BY MOUTH EVERY DAY Discharge Instructions Additional Instructions: Total Hip Discharge Instructions Activity: The most important activity is to walk. You should try to take short walks a few times a day. You have no restrictions on movement or positioning, but do not try to force what you do. You will find some stiffness and weakness with hip flexion (lifting your knee). Do not try to strengthen this too early, continue to practice walking and stairs and this will come. - Outpatient physical therapy can be helpful to help return you to a normal gait and improve your flexibility and strength. This can start around 2 weeks. For some patients, it?s not necessary. Usually this is determined at the time of discharge or at the first post-operative visit. - You should wear the ARIES hose on both legs for 2 weeks. Dressing: Keep the surgical dressing in place for at least one week. After the first week it may be removed and replace with light gauze and tape or nothing. It may get wet after 3 days but avoid soaking the dressing. If it gets wet, just lightly pat dry. It is important to always keep some gauze between skin folds, especially when you are sitting. Spend some time with the wound exposed when you are lying flat as the incision does wrinkle onto itself. Medications: - You should take Tylenol and an anti-inflammatory Celebrex as your primary pain control medications. If the Celebrex is too expensive or not covered, please call the office for another alternative (Advil/Ibuprofen or Naproxen/Aleve). - You have been prescribed a stronger pain medication Oxycodone for breakthrough pain, take as needed as prescribed. - You have also been prescribed a stomach acid reduction agent Pantoprozole to help reduce stomach acid and reflux. - You have also been prescribed Decadron to help with post-operative nausea and pain. You will take this for two days starting tomorrow. - You resume taking your baseline Aspirin tomorrow for DVT prevention unless instructed otherwise. - If you have constipation you should take Colace (which has been prescribed) or Miralax (which is available [id number]). It takes most people 3-4 days to have a bowel movement. Follow-up: 2 weeks If you have any acute concerns or questions, please do not hesitate to contact the office at [phone]. You may contact Dr. Turner with any questions after hours through the hospital at [phone] or on his cell phone at [phone]. Referrals: Hossein Turner MD [ [facility] STAFF PHYSICIAN] - Activity:: Activity as Tolerated Equipment/Supplies:: Walker Diet:: As Tolerated Discharge Orders Discharge Orders: Discharge Order (Routine); Ordered 08/13/24 Ordered By: Ida Curtis DS: Summary Time Spent with Patient providing and/or coordinating discharge services: Less than 30 minutes Status at Discharge Functional status at discharge: uses cane/walker Overall status at discharge: patient is progressing back to baseline Mental Status: mental status grossly normal Speech and Movement: speech and movement normal Mood: congruent mood Affect: normal affect Quality:SDOH Health Related Social Needs: Health related social needs transportation insecurity (Z59.82), feeling lonely/isolated (Z60.8) Exam Narrative Exam Narrative: No acute distress. Alert oriented x 3. Dressing about the right hip is clean dry and intact. Intact femoral and lateral cutaneous nerve sensation. Active ankle dorsiflexion, plantarflexion, great toe extension and flexion. Psych Mental Status: mental status grossly normal Speech and Movement: speech and movement normal Mood: congruent mood Affect: normal affect DS: Data Vitals/I&O Vitals and I&O: Vital Signs Temperature 96.3 F L 08/13/24 11:12 Pulse 56 L 08/13/24 11:12 Pulse Rhythm Regular 08/13/24 06:00 Pulse 60 08/13/24 10:55 Respiratory Rate 17 08/13/24 11:12 Respiratory Effort Normal 08/13/24 11:12 Respiratory Depth Normal 08/13/24 11:12 Respiratory Pattern Normal 08/13/24 11:12 Blood Pressure 123/68 08/13/24 11:12 Blood Pressure Mean 69 08/13/24 10:51 Pulse Oximetry 89 L 08/13/24 10:55 Respiratory End-tidal CO2 30 08/13/24 10:55 Oxygen Delivery Method Nasal Cannula 08/13/24 11:12 Oxygen Flow Rate 2 08/13/24 11:12 Pain Level 7 08/13/24 11:12 Intake & Output 08/12/24 08/12/24 08/13/24 11:59 23:59 11:59 Intake Total 1100 / 1100 Output Total 600 / 600 Balance 500 / 500 Weight 282 lb 3.067 oz Intake: IV 1100 / 1100 Output: Estimated Blood Loss 600 / 600 Other: Urine Appearance Clear PFSH All Active Problems History of total right hip replacement (Acute 08/13/24) Painful breasts (Acute) Breast lump (Acute) Lumbar radiculitis (Acute) Left lumbar radiculopathy (Acute) SVT (supraventricular tachycardia) (Chronic) DVT prophylaxis (Acute) Sepsis (Acute) Acute dehydration (Acute) Pyelonephritis (Acute) Nausea & vomiting (Acute) Elevated troponin level not due to acute coronary syndrome (Acute) Atrial flutter, paroxysmal (Acute) Pyelonephritis, acute (Acute) Lipoma (Acute) Lateral epicondylitis of right elbow (Acute) Peripheral neuropathy (Acute) Osteoarthritis of left hip (Acute) Vaginal dryness, menopausal (Acute) UTI (urinary tract infection) (Acute) Diarrhea (Acute) Gross hematuria (Acute) Tendinitis of left elbow (Acute) Breast pain, left (Acute) 09/2019. Physical exam unremarkable. No additional testing ordered. Right rotator cuff tendinitis (Acute) Steroid injection: 02/07/2021; 04/14/2019 Diabetes (Chronic) Hydronephrosis (Acute) Morbid obesity (Chronic) Leukocytosis (leucocytosis) (Acute) Renal insufficiency (Chronic) Lactic acid acidosis (Acute) Hyperglycemia (Chronic) Incarcerated incisional hernia (Acute) Primary osteoarthritis of both knees (Chronic 07/26/15) Synvisc injections for many years Most recent Synvisc injections: 06/22/2023; 12/11/2022; 06/05/2022; 12/02/2021; 12/11/22; 06/22/23 Cystocele (Acute 04/13/15) Flank pain (Acute) Recurrent UTI (Chronic) Hematuria (Acute) Medical History Osteoarthritis of hips, bilateral Calcium nephrolithiasis Bile acid malabsorption syndrome History of palpitations CAD (coronary artery disease) Vertigo Chronic lower back pain Urinary incontinence Osteoma Hypertension Neuropathy Chronic pain Degenerative joint disease Chronic leg pain Hypomagnesemia Hyperparathyroidism Plantar fasciitis Thyroid nodule Obstructive nephropathy Incisional hernia Herpes simplex Diarrhea Vaginitis Acute stress disorder PTSD (post-traumatic stress disorder) Per pt. states triggers for her are loud noises, and slammed doors Cirrhosis of liver Other chromoabnormalities of urine Former smoker quit smoking 07/23/16 Depression Cardiomyopathy Urinary incontinence, mixed Obsessive compulsive disorder Vaginal wall prolapse Congestive heart failure Anemia Sleep apnea Sarcoidosis Anxiety Congenital ureterovesical obstruction Diabetes mellitus Kidney stone Essential hypertension Surgical History History of tooth extraction History of resection of small bowel r/t obstruction H/O parathyroidectomy History of hernia repair S/P total left hip arthroplasty (04/18/23) Tonsillectomy and adenoidectomy Open Carpal Tunnel release Oophrectomy, Both Lithotripsy Abdominal hysterectomy Fracture, Open Treatment Cholecystectomy Family History Mother Diabetes Heart disease Father Personal history of malignant neoplasm Lung Cancer Sister Personal history of malignant neoplasm Thyroid Cancer Social History Smoking/Tobacco Use Status: Former Tobacco Use Quit Date: 07/23/16 Smoking risk assessment performed?: Yes Alcohol Intake: former Drug use: Rarely Substance use type: marijuana Details: Cannabis gummies. Housing: apartment Current gender identity: female Do you feel safe at home: Yes Additional Social history: lives alone
[2024-08-14] MEDS: Pravastatin 20 MG TAB 10 MG PO (08:08)
[2024-08-14] MEDS: Vitamins B Comp w/C TAB 1 TAB PO (08:08)
[2024-08-14] MEDS: Aspirin 325 MG TAB 162.5 MG PO (08:08)
[2024-08-14] MEDS: ceFAZolin 1 GM/50 ML BAG IVPB (08:13)
[2024-08-14] MEDS: Insulin Aspart 300 UNITS/3 ML PEN SC (08:24)
[2024-08-14] MEDS: metFORMIN C.R. 500 MG TABCR 1000 MG PO (08:26)
[2024-08-14] MEDS: Ferrous Sulfate 325 MG TAB PO (08:30)
[2024-08-14] MEDS: Insulin Glargine 300 UNITS/3 ML PEN 15 UNITS SC (08:30)
--- NOTE | 2024-08-14 09:23 | PT.INTREAT ---
PT Notes Visit Reasons: Right hip DJD Inpatient Physical Therapy Treatment Note [facility] Date: 08/14/2024 PRECAUTIONS:WBAT RLE SUBJECTIVE: Pt reports she will be leaving this morning after her IV is completed OBJECTIVE: Pt presents seated in chair fully dressed with IV infusing . ? PAIN: 09/01 VITALS: ?monitored by Nursing? Therapeutic Activities ([id number][]): Direct one-on-one instruction in dynamic activities to improve functional performance. ?? Bed mobility: Independent Transfers: Modified independent with FWW and/or use of single-point cane Ambulation: 500 feet with FWW level surfaces including turns modified independent demonstrating reciprocal pattern slight antalgic gait on the right. Patient ambulate 25 feet-x 2 with single-point cane standby assist patient demonstrates slight Trendelenburg with increased lateral weight shift with cane. She needs to use the cane to get to her stairs from her driveway . She reports her friend will also be available. She states it is less than10 feet from driveway to stairs. Stairs: 5 steps with rail and SPC SBA with cues for sequencing. Pt was able to intermittently perfrom reciprocal pattern ascending however prefers step to pattern descending. Pt able to demonstrate WILMA exercise protocol without instruction. ASSESSMENT: Patient is now independent with FWW for all transfers and ambulation distances exceeding 500 feet. Patient demonstrates stairs with rail and cane with cues for sequencing. Patient independent with home exercise program and is appropriate for discharge. PLAN: Discharge to home today TREATMENT CODE/TIME: 48464/ [id number] DISCHARGE RECOMMENDATION: Home with HEP
[2024-08-14] MEDS: Normal Saline 500 ML IV (09:26)
== END 2024-08-14 10:51 | disposition home or self-care (01) ==
LOC: MS 11:12
PROVIDERS: Admitting Provider Student in an Organized Health Care Education/Training Program; PCP Family Medicine; Visit Provider Student in an Organized Health Care Education/Training Program
PROC: (CPT 27130; principal; 2024-08-13 07:30)
DX: M16.11 Unilateral primary osteoarthritis, right hip (principal); M54.16 Radiculopathy, lumbar region; I47.10 Supraventricular tachycardia, unspecified; E66.01 Morbid (severe) obesity due to excess calories; E11.42 Type 2 diabetes mellitus with diabetic polyneuropathy; Z79.4 Long term (current) use of insulin; I25.10 Atherosclerotic heart disease of native coronary artery without angina pectoris; G89.29 Other chronic pain; I10 Essential (primary) hypertension; D64.9 Anemia, unspecified; Z79.899 Other long term (current) drug therapy
CPT/HCPCS: 20985; 27130; 36415; 80048; 85027; 96361; 96365; 96366; 97162; 97530; 73501; C1776; G0378; J0690; J1100; J1171; J1815; J2405; J2598; J2704; J3475; J8540

== ENCOUNTER 2024-08-25 15:28 | Outpatient (CLI) | payer MEDICARE, SELFPAY ==
--- NOTE | 2024-08-25 15:25 | DI.RAD_ITS ---
Exam(s) XR HIP RT COMPLETE AP PELVIS EXAM: XR HIP RT COMPLETE AP PELVIS INDICATION: 1ST POST OP R WILMA. COMPARISON: CR XR HIP RT COMPLETE AP PELVIS from 07/28/2024 XA XR HIP RT IN OR from 08/13/2024 TECHNIQUE: 2D digital imaging was performed. Two views. FINDINGS: Stable alignment bilateral hip prostheses. No abnormal surrounding bony lucencies. DATA REPOSITORY: RADIATION DOSE DELIVERED:
== END 2024-08-25 15:29 | disposition home or self-care (01) ==
LOC: DIORS 15:29
PROVIDERS: PCP Family Medicine; Referring Provider Family Medicine; Visit Provider Student in an Organized Health Care Education/Training Program
DX: Z96.641 Presence of right artificial hip joint (principal); Z47.1 Aftercare following joint replacement surgery
CPT/HCPCS: 99024; 73502

== ENCOUNTER → 2024-09-01 09:19 | Outpatient (BNVA) | payer MEDICARE, SELFPAY | PROVIDERS: PCP Family Medicine; Referring Provider Family Medicine; Visit Provider Student in an Organized Health Care Education/Training Program | DX: Z47.1 Aftercare following joint replacement surgery (principal); Z96.641 Presence of right artificial hip joint; M96.842 Postprocedural seroma of a musculoskeletal structure following a musculoskeletal system procedure | CPT/HCPCS: 99024 ==

== ENCOUNTER → 2024-09-08 14:53 | Outpatient (BNVA) | payer MEDICARE, SELFPAY | PROVIDERS: PCP Family Medicine; Referring Provider Family Medicine; Visit Provider Student in an Organized Health Care Education/Training Program | DX: Z47.1 Aftercare following joint replacement surgery (principal); M96.842 Postprocedural seroma of a musculoskeletal structure following a musculoskeletal system procedure; Z96.641 Presence of right artificial hip joint | CPT/HCPCS: 99024 ==

== ENCOUNTER 2024-09-09 11:35 | Day surgery (SDC) | payer MEDICARE, SELFPAY ==
[2024-09-09] VITALS (12 sets, daily range): BP systolic 122–176; BP diastolic 50–76; PULSE 55–66; RESP 11–18; TEMP 36.3–36.6; O2SAT 94–99; BMI 46.3
--- NOTE | 2024-09-09 12:13 | W.PREOPHP ---
Assessment and Plan Assessment and plan (1) History of total right hip replacement: Status: Acute (2) Surgical wound dehiscence: Status: Acute (3) Seroma of musculoskeletal structure after musculoskeletal system procedure: Status: Acute Assessment and plan: Sakshi is a 63-year-old female who is status post right hip replacement. She has had a complication with a seroma and now a small wound dehiscence. This was tried to be managed in the office with aspiration and dressings. However, it is no longer functioning. Therefore, recommend we proceed with irrigation and debridement of the right hip wound, seroma debridement and suture closure. I discussed the technical details with her. I discussed the risk to include bleeding, infection, pain, stiffness, damage nerves and vessels, recurrence. Despite these risk, he elects to proceed. History of Present Illness History of Present Illness Chief Complaint: Right Hip Wound Dehisence and Seroma Narrative: Sakshi is a 63-year-old female who is status post right hip replacement. She is been doing well with her recovery but has developed a seroma. Please see the previous office notes for complete detailed history. However, seromas been aspirated but returned. She presented yesterday to the office with slight dehiscence of the superior portion of the wound. I was able to express the majority of the seroma through that wound defect. A dressing was applied with vacuum assistance but unfortunately continued to leak overriding the wound dressing device. She called me last night to report this and therefore I recommended that we proceed to the operating room for seroma debridement and secondary closure. She denies any fevers or chills. She denies any issues with surrounding erythema. She is able to ambulate with only a cane, her baseline. Review of Systems All systems reviewed & are unremarkable except as noted in HPI and below PFSH All Active Problems Surgical wound dehiscence (Acute) Seroma of musculoskeletal structure after musculoskeletal system procedure (Acute) History of total right hip replacement (Acute 08/13/24) Painful breasts (Acute) Breast lump (Acute) Lumbar radiculitis (Acute) Left lumbar radiculopathy (Acute) SVT (supraventricular tachycardia) (Chronic) DVT prophylaxis (Acute) Sepsis (Acute) Acute dehydration (Acute) Pyelonephritis (Acute) Nausea & vomiting (Acute) Elevated troponin level not due to acute coronary syndrome (Acute) Atrial flutter, paroxysmal (Acute) Pyelonephritis, acute (Acute) Lipoma (Acute) Lateral epicondylitis of right elbow (Acute) Peripheral neuropathy (Acute) Osteoarthritis of left hip (Acute) Vaginal dryness, menopausal (Acute) UTI (urinary tract infection) (Acute) Diarrhea (Acute) Gross hematuria (Acute) Tendinitis of left elbow (Acute) Breast pain, left (Acute) 09/2019. Physical exam unremarkable. No additional testing ordered. Right rotator cuff tendinitis (Acute) Steroid injection: 02/07/2021; 04/14/2019 Diabetes (Chronic) Hydronephrosis (Acute) Morbid obesity (Chronic) Leukocytosis (leucocytosis) (Acute) Renal insufficiency (Chronic) Lactic acid acidosis (Acute) Hyperglycemia (Chronic) Incarcerated incisional hernia (Acute) Primary osteoarthritis of both knees (Chronic 07/26/15) Synvisc injections for many years Most recent Synvisc injections: 06/22/2023; 12/11/2022; 06/05/2022; 12/02/2021; 12/11/22; 06/22/23 Cystocele (Acute 04/13/15) Flank pain (Acute) Recurrent UTI (Chronic) Hematuria (Acute) Medical History Osteoarthritis of hips, bilateral Calcium nephrolithiasis Bile acid malabsorption syndrome History of palpitations CAD (coronary artery disease) Vertigo Chronic lower back pain Urinary incontinence Osteoma Hypertension Neuropathy Chronic pain Degenerative joint disease Chronic leg pain Hypomagnesemia Hyperparathyroidism Plantar fasciitis Thyroid nodule Obstructive nephropathy Incisional hernia Herpes simplex Diarrhea Vaginitis Acute stress disorder PTSD (post-traumatic stress disorder) Per pt. states triggers for her are loud noises, and slammed doors Cirrhosis of liver Other chromoabnormalities of urine Former smoker quit smoking 07/23/16 Depression Cardiomyopathy Urinary incontinence, mixed Obsessive compulsive disorder Vaginal wall prolapse Congestive heart failure Anemia Sleep apnea Sarcoidosis Anxiety Congenital ureterovesical obstruction Diabetes mellitus Kidney stone Essential hypertension Surgical History History of tooth extraction History of resection of small bowel r/t obstruction H/O parathyroidectomy History of hernia repair S/P total left hip arthroplasty (04/18/23) Tonsillectomy and adenoidectomy Open Carpal Tunnel release Oophrectomy, Both Lithotripsy Abdominal hysterectomy Fracture, Open Treatment Cholecystectomy Family History Mother Diabetes Heart disease Father Personal history of malignant neoplasm Lung Cancer Sister Personal history of malignant neoplasm Thyroid Cancer Social History Smoking/Tobacco Use Status: Former Tobacco Use Quit Date: 07/23/16 Smoking risk assessment performed?: Yes Alcohol Intake: former Drug use: Rarely Substance use type: marijuana Details: Cannabis gummies. Housing: apartment Current gender identity: female Do you feel safe at home: Yes Additional Social history: lives alone Meds Allergies and Home Medications Allergies Allergy/AdvReac Type Severity Reaction Status Date / Time erythromycin base Allergy Severe hives Verified 09/09/24 12:28 Sulfa (Sulfonamide Allergy Severe hives Verified 09/09/24 12:28 Antibiotics) sulfamethoxazole (From Allergy Other (See Verified 09/09/24 12:28 Bactrim) Comment) trimethoprim (From Bactrim) Allergy Other (See Verified 09/09/24 12:28 Comment) magnesium AdvReac Severe Diarrhea Verified 09/09/24 12:28 nitrofurantoin (From AdvReac Severe depression Verified 09/09/24 12:28 Macrobid) clomipramine (From Anafranil) AdvReac Intermediate Other (See Verified 09/09/24 12:28 Comment) ketamine AdvReac Intermediate hallucinati Verified 09/09/24 12:28 ons Home Medications ?Medication ?Instructions ?Recorded ?Confirmed ?Type nitroglycerin 0.4 mg sublingual 0.4 mg sublingual PRN 11/07/12 09/09/24 History tablet acyclovir 5 % topical cream 1 applic topical ONCE PRN 12/19/18 09/09/24 History diclofenac sodium 1 % topical gel 2 gm topical QID PRN 12/19/18 09/09/24 History (Voltaren) valacyclovir 1 gram tablet 1,000 mg PO DAILY 10/13/20 09/09/24 History multivitamin 1 tab PO DAILY 11/16/20 09/09/24 History clotrimazole-betamethasone 1 1 applic topical BID 10 days #15 01/28/21 09/09/24 Rx %-0.05 % topical cream grams estradiol 0.01% (0.1 mg/gram) 1 appful vaginal DAILY #42.5 grams 10/10/22 09/09/24 Rx vaginal cream (Estrace) vitamin B complex (B 1 tab PO DAILY 12/11/22 09/09/24 History Complex-Vitamin B12 tablet) levalbuterol tartrate 45 2 inh inhalation Q6H PRN 12/28/22 09/09/24 History mcg/actuation aerosol inhaler spironolactone 25 mg tablet 25 mg PO DAILY 12/28/22 09/09/24 History mupirocin calcium 2 % topical cream 1 applic topical BID #30 grams 06/06/23 09/09/24 Rx ferrous sulfate 325 mg (65 mg 325 mg PO DAILY 06/22/23 09/09/24 History iron) tablet (Iron (ferrous sulfate)) insulin glargine 100 unit/mL (3 15 unit subcut QAM 02/18/24 09/09/24 History mL) subcutaneous pen (Basaglar KwikPen U-100 Insulin) aspirin 325 mg tablet 162.5 mg PO DAILY 03/27/24 09/09/24 History furosemide 20 mg tablet 20 mg PO DAILY 07/28/24 09/09/24 History gabapentin 600 mg tablet 1,200 mg PO TID 07/28/24 09/09/24 History insulin aspart 1 sliding scale dose subcut 07/28/24 09/09/24 History (niacinamide)(U-100) 100 unit/mL(3 USEASDIRECTD mL) subcutaneous pen (Fiasp FlexTouch U-100 Insulin) pravastatin 10 mg tablet 10 mg PO DAILY 07/28/24 09/09/24 History sodium bicarbonate 650 mg tablet 1,300 mg PO BID 07/28/24 09/09/24 History tirzepatide 2.5 mg/0.5 mL 5 mg subcut QWEEK 07/28/24 09/09/24 History subcutaneous pen injector (Mounjaro) insulin lispro 100 unit/mL 30 unit subcut TID 08/07/24 09/08/24 History subcutaneous pen (Humalog KwikPen (U-100) Insulin) meclizine 25 mg chewable tablet 25 mg PO Q6H PRN 08/07/24 09/09/24 History (Antivert) ondansetron HCl 4 mg tablet 4 mg PO Q6H PRN 08/07/24 09/09/24 History acetaminophen 500 mg tablet 1,000 mg (2 x 500 mg) PO Q8H PRN 08/13/24 09/09/24 Rx pain #90 tabs carvedilol 12.5 mg tablet 25 mg PO BID 08/13/24 09/09/24 History celecoxib 200 mg capsule (Celebrex) 200 mg PO BID PRN #60 caps 08/13/24 09/09/24 Rx docusate sodium 100 mg capsule 100 mg PO BID #30 caps 08/13/24 09/09/24 Rx (Colace) duloxetine 30 mg capsule,delayed 30 mg PO DAILY 08/13/24 09/09/24 History release metformin 500 mg tablet,extended 1,000 mg PO BID 08/13/24 09/09/24 History release 24 hr pantoprazole 40 mg tablet,delayed 40 mg PO DAILY #14 tabs 08/13/24 09/09/24 Rx release oxycodone 5 mg tablet 5 mg PO Q6H PRN pain #12 tabs 08/29/24 09/09/24 Rx potassium chloride 20 mEq 20 meq PO 09/09/24 History tablet,extended release Exam Const General: cooperative, comfortable and no acute distress Resp Effort & Inspection: normal respiratory effort Auscultation: clear to auscultation bilaterally Cardio Rate: regular rate Rhythm: regular rhythm
[2024-09-09] MEDS: Celecoxib 200 MG CAP 400 MG PO (13:19)
[2024-09-09] MEDS: Acetaminophen 500 MG TAB 1000 MG PO (13:19)
--- NOTE | 2024-09-09 13:35 | ANES.PREOP_ITS ---
General Info Date of Service Date Performed: 09/09/24 Height: 5 ft 6 in Weight: 130.3 kg Body Mass Index (BMI): 46.3 Surgical Procedure: Operation Date: 09/09/24 14:25 Proposed Procedure Side Surgeon p irrigation and debridement of right hip wound/seroma Right Hossein Turner MD Meds Allergies and Home Medications Allergies Allergy/AdvReac Type Severity Reaction Status Date / Time erythromycin base Allergy Severe hives Verified 09/09/24 12:28 Sulfa (Sulfonamide Allergy Severe hives Verified 09/09/24 12:28 Antibiotics) sulfamethoxazole (From Allergy Other (See Verified 09/09/24 12:28 Bactrim) Comment) trimethoprim (From Bactrim) Allergy Other (See Verified 09/09/24 12:28 Comment) magnesium AdvReac Severe Diarrhea Verified 09/09/24 12:28 nitrofurantoin (From AdvReac Severe depression Verified 09/09/24 12:28 Macrobid) clomipramine (From Anafranil) AdvReac Intermediate Other (See Verified 09/09/24 12:28 Comment) ketamine AdvReac Intermediate hallucinati Verified 09/09/24 12:28 ons Home Medication ?Medication ?Instructions ?Recorded nitroglycerin 0.4 mg sublingual 0.4 mg sublingual PRN 11/07/12 tablet acyclovir 5 % topical cream 1 applic topical ONCE PRN 12/19/18 diclofenac sodium 1 % topical gel 2 gm topical QID PRN 12/19/18 (Voltaren) valacyclovir 1 gram tablet 1,000 mg PO DAILY 10/13/20 multivitamin 1 tab PO DAILY 11/16/20 clotrimazole-betamethasone 1 1 applic topical BID 10 days #15 01/28/21 %-0.05 % topical cream grams estradiol 0.01% (0.1 mg/gram) 1 appful vaginal DAILY #42.5 grams 10/10/22 vaginal cream (Estrace) vitamin B complex (B 1 tab PO DAILY 12/11/22 Complex-Vitamin B12 tablet) levalbuterol tartrate 45 2 inh inhalation Q6H PRN 12/28/22 mcg/actuation aerosol inhaler spironolactone 25 mg tablet 25 mg PO DAILY 12/28/22 mupirocin calcium 2 % topical cream 1 applic topical BID #30 grams 06/06/23 ferrous sulfate 325 mg (65 mg 325 mg PO DAILY 06/22/23 iron) tablet (Iron (ferrous sulfate)) insulin glargine 100 unit/mL (3 15 unit subcut QAM 02/18/24 mL) subcutaneous pen (Basaglar KwikPen U-100 Insulin) aspirin 325 mg tablet 162.5 mg PO DAILY 03/27/24 furosemide 20 mg tablet 20 mg PO DAILY 07/28/24 gabapentin 600 mg tablet 1,200 mg PO TID 07/28/24 insulin aspart 1 sliding scale dose subcut 07/28/24 (niacinamide)(U-100) 100 unit/mL(3 USEASDIRECTD mL) subcutaneous pen (Fiasp FlexTouch U-100 Insulin) pravastatin 10 mg tablet 10 mg PO DAILY 07/28/24 sodium bicarbonate 650 mg tablet 1,300 mg PO BID 07/28/24 tirzepatide 2.5 mg/0.5 mL 5 mg subcut QWEEK 07/28/24 subcutaneous pen injector (Luzma) insulin lispro 100 unit/mL 30 unit subcut TID 08/07/24 subcutaneous pen (Humalog KwikPen (U-100) Insulin) meclizine 25 mg chewable tablet 25 mg PO Q6H PRN 08/07/24 (Antivert) ondansetron HCl 4 mg tablet 4 mg PO Q6H PRN 08/07/24 acetaminophen 500 mg tablet 1,000 mg (2 x 500 mg) PO Q8H PRN 08/13/24 pain #90 tabs carvedilol 12.5 mg tablet 25 mg PO BID 08/13/24 celecoxib 200 mg capsule (Celebrex) 200 mg PO BID PRN #60 caps 08/13/24 docusate sodium 100 mg capsule 100 mg PO BID #30 caps 08/13/24 (Colace) duloxetine 30 mg capsule,delayed 30 mg PO DAILY 08/13/24 release metformin 500 mg tablet,extended 1,000 mg PO BID 08/13/24 release 24 hr pantoprazole 40 mg tablet,delayed 40 mg PO DAILY #14 tabs 08/13/24 release oxycodone 5 mg tablet 5 mg PO Q6H PRN pain #12 tabs 08/29/24 potassium chloride 20 mEq 20 meq PO 09/09/24 tablet,extended release Current Visit Medications: Current Medications Generic Name Dose Route Start Last Admin Trade Name Gillian PRN Reason Stop Dose Admin Acetaminophen 1,000 mg 09/09/24 06:00 09/09/24 13:19 Acetaminophen 500 Mg Tab PO 09/09/24 23:59 1,000 mg PREOP BERT Administration Celecoxib 400 mg 09/09/24 06:00 09/09/24 13:19 Celecoxib 200 Mg Cap PO 09/09/24 23:59 400 mg PREOP BERT Administration Ringer's Solution 1,000 mls @ 80 mls/hr 09/09/24 06:00 IV 09/09/24 23:59 INFUSION BERT Cefazolin Sodium 3,000 mg/ 100 mls @ 200 mls/hr 09/09/24 06:00 Sodium Chloride IV 09/09/24 23:59 PREOP BERT Tranexamic Acid/Sodium Chloride 1,000 mg in 100 mls @ 600 mls/hr 09/09/24 06:00 IVPB 09/09/24 23:59 PREOP BERT IV Miscellaneous Supplies 1 each 09/09/24 06:00 Iv Access IV 09/09/24 23:59 DIRECTED BERT Sodium Chloride 0 ml 09/09/24 06:00 Normal Saline Flush 10 Ml Syr IV 09/09/24 23:59 PRN PRN Sodium Chloride 0 ml 09/09/24 06:00 Normal Saline 10 Ml Vial IJ 09/09/24 23:59 DIRECTED PRN Sterile Water 0 ml 09/09/24 06:00 Water,Injection,Sterile 10 Ml Vial IJ 09/09/24 23:59 DIRECTED PRN PFSH Active Problems Active Problems: Problem Status Onset Code Surgical wound dehiscence Acute T81.31XA Seroma of musculoskeletal structure after musculoskeletal system procedure Acute M96.842 History of total right hip replacement Acute 08/13/24 Z96.641 Painful breasts Acute N64.4 Breast lump Acute N63.0 Lumbar radiculitis Acute M54.16 Left lumbar radiculopathy Acute M54.16 SVT (supraventricular tachycardia) Chronic I47.10 DVT prophylaxis Acute Z29.9 Sepsis Acute A41.9 Acute dehydration Acute E86.0 Pyelonephritis Acute N12 Nausea & vomiting Acute R11.2 Elevated troponin level not due to acute coronary syndrome Acute R79.89 Atrial flutter, paroxysmal Acute I48.92 Pyelonephritis, acute Acute N10 Lipoma Acute D17.9 Lateral epicondylitis of right elbow Acute M77.11 Peripheral neuropathy Acute G62.9 Osteoarthritis of left hip Acute M16.12 Vaginal dryness, menopausal Acute N95.1 UTI (urinary tract infection) Acute N39.0 Diarrhea Acute R19.7 Gross hematuria Acute R31.0 Tendinitis of left elbow Acute M77.8 Breast pain, left Acute N64.4 Right rotator cuff tendinitis Acute M75.81 Diabetes Chronic E11.9 Hydronephrosis Acute N13.30 Morbid obesity Chronic E66.01 Leukocytosis (leucocytosis) Acute D72.829 Renal insufficiency Chronic N28.9 Lactic acid acidosis Acute E87.2 Hyperglycemia Chronic R73.9 Incarcerated incisional hernia Acute K43.0 Primary osteoarthritis of both knees Chronic 07/26/15 M17.0 Cystocele Acute 15 Flank pain Acute R10.9 Recurrent UTI Chronic N39.0 Hematuria Acute R31.9 Medical History Medical History Osteoarthritis of hips, bilateral Calcium nephrolithiasis Bile acid malabsorption syndrome History of palpitations CAD (coronary artery disease) Vertigo Chronic lower back pain Urinary incontinence Osteoma Hypertension Neuropathy Chronic pain Degenerative joint disease Chronic leg pain Hypomagnesemia Hyperparathyroidism Plantar fasciitis Thyroid nodule Obstructive nephropathy Incisional hernia Herpes simplex Diarrhea Vaginitis Acute stress disorder PTSD (post-traumatic stress disorder) Per pt. states triggers for her are loud noises, and slammed doors Cirrhosis of liver Other chromoabnormalities of urine Former smoker quit smoking 07/23/16 Depression Cardiomyopathy Urinary incontinence, mixed Obsessive compulsive disorder Vaginal wall prolapse Congestive heart failure Anemia Sleep apnea Sarcoidosis Anxiety Congenital ureterovesical obstruction Diabetes mellitus Kidney stone Essential hypertension Medical History Comments:: Per pt. does not like Ketamine. Per pt. states she had a hard time waking up, and does not luke Fentanyl, takes a long time waking up, and she needs to know whats happening to stay safe Surgical History Surgical History History of tooth extraction History of resection of small bowel r/t obstruction H/O parathyroidectomy History of hernia repair S/P total left hip arthroplasty (04/18/23) Tonsillectomy and adenoidectomy Open Carpal Tunnel release Oophrectomy, Both Lithotripsy Abdominal hysterectomy Fracture, Open Treatment Cholecystectomy Tobacco Smoking/Tobacco Use Status: Former Tobacco Use Alcohol Alcohol Intake: former Substance Use Substance use: Rarely Substance use type: marijuana Details: Cannabis gummies. Vital Signs and Lab Results Vital Signs Most Recent Vital Signs in EMR: Most Recent Vital Signs Temp Pulse Resp BP Pulse Ox 36.3 C L 63 16 176/76 H 97 09/09/24 12:15 09/09/24 12:15 09/09/24 12:15 09/09/24 12:15 09/09/24 12:15 Lab Results Blood Type / Crossmatch: No Data to Display Complete Blood Count: White Blood Count 13.09 10^3/uL (4.4-10.8) H 08/14/24 06:14 Red Blood Count 3.26 10^6/uL (3.93-5.22) L 08/14/24 06:14 Hemoglobin 10.5 g/dL (11.2-15.7) L 08/14/24 06:14 Hematocrit 31.1 % (36.0-46.0) L 08/14/24 06:14 Platelet Count 128 10^3/uL (130-400) L 08/14/24 06:14 Complete Metabolic Panel: Sodium 136 mmol/L (136-145) 08/14/24 06:14 Potassium 4.4 mmol/L (3.5-5.1) 08/14/24 06:14 Chloride 102 mmol/L (98-107) 08/14/24 06:14 Carbon Dioxide 24.7 mmol/L (21.0-32.0) 08/14/24 06:14 BUN 33 mg/dL (7-18) H 08/14/24 06:14 Creatinine 1.5 mg/dL (0.55-1.02) H 08/14/24 06:14 Est GFR (CKD-EPI 2020) 38.67 (mL/min/1.73m2) 08/14/24 06:14 Calcium 9.5 mg/dL (8.5-10.1) 08/14/24 06:14 Glucose 224 mg/dL (74-106) H 08/14/24 06:14 Liver Function Panel: No Data to Display Coagulation Panel: No Data to Display Cardiac Panel: No Data to Display Arterial Blood Gas: 2 No Data to Display Venous Blood Gas: No Data to Display Pancreas Panel: No Data to Display Thyroid Panel: No Data to Display Infectious Disease: No Data to Display Blood Cultures: No Data to Display Toxicology Panel: No Data to Display Imaging and Studies Imaging and Studies Study information below may be from another EMR and interpreted by another provider. Please see original notes in EMR for more complete details. EKG Summary: 03/16/24: Conclusion Sinus rhythm Rate 79 LBBB, morphology unchanged from prior EKG No STEMI I have reviewed and I agree with the emergency room physician's ECG interpretation. Stress Test Summary: Stress ECG Conclusion 1. Resting electrocardiogram showed left bundle branch block 2. Patient underwent pharmacologic stress with regadenoson, coupled with low- level exercise 3. Peak heart rate achieved was 66% of predicted for age 4. The electrocardiographic portion of the test was nondiagnostic due to inadequate heart rate and resting left bundle branch block 5. See MPI report 11/07/21 Echocardiogram Summary: 08/07/24: Conclusion Moderately dilated left ventricle. Normal left ventricular wall thickness. EF is 40 to 45%. No segmental wall motion abnormalities are identified Right atrium and right ventricle are not well-visualized Left atrium is borderline dilated There is no structural or hemodynamically significant valvular disease Mildly dilated ascending aorta 3.42 cm Overall the echocardiogram appears similar to several previous done at [facility] earlier in 2023 Pulmonary Function Summary: 10/31/16: Normal PFT Anesthesia Assessment and Plan Anesthesia History Personal History: No History of Anesthesia Complications Family History: No Family History of Anesthesia Complications Exercise Tolerance Exercise Tolerance: Metabolic Equivalents<4 Pertinent Negatives Pertinent Negatives: No Major Cardiovascular Symptoms or Complaints and No Major Pulmonary Symptoms or Complaints Cardiac & Pulmonary Exam Cardiac Exam: Normal S1/S2 Heart Sounds Pulmonary Exam: Clear Bilateral Breath Sounds Implantable Cardiac Device Does patient have a Pacemaker or an ICD?: No Airway Exam Known Difficult Airway: No Mallampati Class: 2 Mouth Opening: Normal (> 3cm) Thyromental Distance: Greater than 3 cm Neck Range of Motion: Full ROM Neck Circumference: Normal Teeth Condition: Normal Dentition (3 missing teeth, none loose) ASA Classification ASA Score: ASA 3 Emergency Case?: No NPO Status NPO Status: NPO Clears >2 hours, Solids >8 hours Anesthesia Plan Resuscitation Status: Full Code Anesthesia Technique: General Anesthesia Airway Planned: Endotracheal Tube Monitors Used: Standard Monitors Preoperative Comments:: ETT for BMI, DM, and Mounjaro use 6 days ago
[2024-09-09] MEDS: Lactated Ringers 1,000 ML 80 ML IV (13:45)
--- NOTE | 2024-09-09 14:12 | PDOC.DSDIS_ITS ---
Date of service: 09/09/24 Discharge Plan Disposition Patient Disposition: Home Condition: Good Discharge Details Attending Provider: Hossein Turner Primary Care Provider: Trev Burr Home Meds and New Rx's Prescriptions: New oxycodone 5 mg tablet 5 mg PO Q6H PRNQty: 12 0RF Rx Instructions: Take one tablet up to every 6 hours as needed for severe postoperative pain cefadroxil 500 mg capsule 500 mg PO BID Qty: 14 0RF Rx Instructions: Take one tablet twice daily for one week Continued multivitamin Tablet 1 tab PO DAILY insulin glargine [Basaglar KwikPen U-100 Insulin] 100 unit/mL (3 mL) insulin pen 15 unit subcut QAM Patient Comments: pt reports using 15 units QAM only vitamin B complex [B Complex-Vitamin B12] Tablet 1 tab PO DAILY estradiol [Estrace] 0.01 % (0.1 mg/gram) cream 1 appful vaginal DAILY Qty: 42.5 4RF Rx Instructions: daily for 2 weeks then twice weekly Mounjaro 2.5 mg/0.5 mL pen injector 5 mg subcut QWEEK Rx Instructions: for 4 weeks sodium bicarbonate 650 mg tablet 1,300 mg PO BID Fiasp FlexTouch U-100 Insulin 100 unit/mL (3 mL) insulin pen 1 sliding scale dose subcut USEASDIRECTD pravastatin 10 mg tablet 10 mg PO DAILY furosemide 20 mg tablet 20 mg PO DAILY gabapentin 600 mg tablet 1,200 mg PO TID acyclovir 5 % cream 1 applic TP ONCE PRN Patient Comments: over weekend diclofenac sodium [Voltaren] 1 % gel 2 gm TP QID PRN ferrous sulfate [Iron (ferrous sulfate)] 325 mg (65 mg iron) tablet 325 mg PO DAILY aspirin 325 mg tablet 162.5 mg PO DAILY nitroglycerin 0.4 MG tablet, sublingual 0.4 mg Sublingual PRN Patient Comments: 05/04/14: Pt carries NTG but has never had to use it. PG valacyclovir 1 gram tablet 1,000 mg PO DAILY Patient Comments: not currently taking clotrimazole-betamethasone 1-0.05 % cream 1 applic topical BID 10 Days Qty: 15 2RF Patient Comments: not currently taking this medication levalbuterol tartrate 45 mcg/actuation HFA aerosol inhaler 2 inh inhalation Q6H PRN Rx Instructions: Q4-6H PRN spironolactone 25 mg tablet 25 mg PO DAILY mupirocin calcium 2 % cream 1 applic topical BID Qty: 30 0RF insulin lispro [Humalog KwikPen Insulin] 100 unit/mL insulin pen 30 unit SUBCUT TID Patient Comments: INJECT UP TO 30 UNITS UNDER THE SKIN THREE TIMES A DAY BEFORE MEALS, USING CARBOHYDRATE COUNTING Rx Instructions: Inject up to 30 units before meals TID using carbohydrate counting. meclizine [Antivert] 25 mg tablet,chewable 25 mg PO Q6H PRN ondansetron HCl 4 mg tablet 4 mg PO Q6H PRN Patient Comments: TAKE ONE TABLET BY MOUTH EVERY 6 TO 8 HOURS NEEDED NVA Rx Instructions: Q6-8 hours PRN acetaminophen 500 mg tablet 1,000 mg PO Q8H PRN Qty: 90 0RF Rx Instructions: Take two tablets up to every 8 hours as needed for pain docusate sodium [Colace] 100 mg capsule 100 mg PO BID Qty: 30 0RF celecoxib [Celebrex] 200 mg capsule 200 mg PO BID PRNQty: 60 0RF Rx Instructions: Take one tablet twice daily for pain and inflammation pantoprazole 40 mg tablet,delayed release (DR/EC) 40 mg PO DAILY Qty: 14 0RF carvedilol 12.5 mg tablet 25 mg PO BID Patient Comments: TAKE TWO TABLETS BY MOUTH TWICE A DAY metformin 500 mg tablet extended release 24 hr 1,000 mg PO BID Patient Comments: TAKE TWO TABLETS BY MOUTH TWICE A DAY duloxetine 30 mg capsule,delayed release(DR/EC) 30 mg PO DAILY Patient Comments: TAKE ONE CAPSULE BY MOUTH EVERY DAY potassium chloride 20 mEq tablet extended release 20 meq PO Patient Comments: TAKE ONE TABLET BY MOUTH EVERY DAY Discontinued oxycodone 5 mg tablet 5 mg PO Q6H MDD 4 tablets PRN (Reason: pain) Qty: 12 0RF Rx Instructions: Take one tablet up to every 6 hours as needed for severe postoperative pain Discharge Instructions Additional Instructions: Wound Debridement Discharge Instructions Activity: You may move and walk as tolerated. You have no restrictions on movement or positioning, but do not try to force what you do. Dressing: Keep the surgical dressing in place until your follow-up. If your dressing starts to have an error message please contact the orthopedic office. Medications: - You should take Tylenol and an anti-inflammatory Celebrex as your primary pain control medications - You have been prescribed a stronger pain medication Oxycodone for breakthrough pain, take as needed as prescribed. - You have been prescribed an antibiotic, Cefadroxil, to take one tablet twice a day for one week. - If you have constipation you should take Colace or Miralax (both [id number]). It takes most people 3-4 days to have a bowel movement. Follow-up: 2 weeks Referrals: Hossein Turner MD [ [facility] STAFF PHYSICIAN] - Activity:: Activity as Tolerated Remove Dressings/Wound Care:: Do Not Remove Shower/Bathe:: Cover Diet:: As Tolerated Discharge Orders Discharge Orders: Discharge Order (Routine); Ordered 09/09/24 Ordered By: Ida Curtis DS: Diagnosis Discharge Diagnosis (1) History of total right hip replacement: Status: Acute (2) Surgical wound dehiscence: Status: Acute (3) Seroma of musculoskeletal structure after musculoskeletal system procedure: Status: Acute
[2024-09-09] MEDS: ceFAZolin 3,000 MG in Normal Saline 100 ML 200 MG IV (14:13)
[2024-09-09] MEDS: TRANEXAMIC ACID/SOD. CHL. 1,000 MG/100 ML BAG 600 MG IVPB (14:28)
--- NOTE | 2024-09-09 16:13 | W.ANESPOSTOP ---
Postoperative Evaluation Date, Time and Location Date Performed: 09/09/24 Time Performed: 16:13 Patient Location: Day Surgery Unit Vital Signs Most Recent Imported Vital Signs: Most Recent Vital Signs Temp Pulse Resp BP Pulse Ox 36.6 C 57 L 16 122/52 L 96 09/09/24 15:53 09/09/24 15:52 09/09/24 15:52 09/09/24 15:52 09/09/24 15:52 Pain Score Most Recent Pain Score: Most Recent Pain Score Pain Level 4 09/09/24 15:53 Assessment Mental Status: Awake (Alert & Oriented to Patient Baseline) Airway and Respiratory Function: Patent airway with normal (patient baseline) respiratory exam Cardiovascular Function: Hemodynamically Stable Hydration Status: Adequately Hydrated Nausea & Vomiting: No Nausea or Vomiting Pain: Pain is tolerable per patient Peripheral Nerve Block: Patient did not receive a nerve block
[2024-09-09] MEDS: oxyCODONE 5 MG TAB PO (16:24)
--- NOTE | 2024-09-09 16:32 | W.PM.OP ---
Operative Note Operative Note PRE-OP DIAGNOSIS: Right Surgical Wound Dehisence and Seroma POST-OP DIAGNOSIS: same PROCEDURE: Irrigation and debridement of right hip wound with excision of area of dehiscence and removal of seroma capsule with closure Binh wound vacuum assisted dressing application SURGEON: Hossein Turner TRANSPORTATION ANALYST: Ida Curtis ANESTHESIA TYPE: General LMA/ETT Refer to Anesthesia Record ESTIMATED BLOOD LOSS: 20 TOURNIQUET TIME: 0 COMPLICATIONS: None Indications: Sakshi is a 63-year-old female, morbidly obese, who underwent right hip replacement from anterior approach. She did well but has developed a seroma. Findings: There was a large seroma underlying the skin incision site of the right hip surgery. It did not violate the fascia but there was a seroma capsule apparent which was debrided and removed completely. Tacking, quilting, sutures were placed in the space and the wound was repaired in interval closure, reinforced with a binh wound vacuum dressing. Procedure Description: Sakshi was greeted in the preoperative holding area. Identity was confirmed and the correct site was identified and marked. History and physical was updated. The consent was reviewed with the patient and signed. She was then taken back to the operating room. She is placed in the supine position on the operating room table. A general anesthetic was administered. Prophylactic antibiotics in the form of cefazolin were given along with 1 g of tranexamic acid. The right hip area was prepped with ChloraPrep and draped with blocking drapes. A timeout is performed for safe surgery. The proximal two thirds of the incision was then incised removing the skin edges around the area of superficial dehiscence and extended slightly proximal. This tissue was removed sharply. There were a few remaining Vicryl sutures which were removed. Immediately there was visibility of the seroma capsule. There was approximate 50 cc of seroma fluid which was evacuated. The area of the seroma extended well proximal to the incision as well as well medial and distal. There is a smooth, glossy, capsule surface which was present. There is no penetration to the fascia. There is no deep penetration apparent. There is no sign of purulence. With a rongeur along with some sharp dissection I removed the seroma capsule back down to healthy appearing fat. This also went all the way down to the fascia of the tensor fascia luna but did not penetrate it at any point. There is no suture left behind. The wound was then irrigated with 1 L of normal saline. It was once again inspected and any remnant seroma capsule was removed. I then irrigated the wound with sterile Betadine. I allowed it to sit for 3 minutes. This was then evacuated once again the wound was inspected. I then gave a final wash with Betadine but only suctioned this extra fluid out, leaving behind the Betadine on the surface to hopefully serve as a initiator of adhesion between tissues as this has been shown to improve adhesion when dealing with seromas. I then closed the space down with a quilting type suture starting at the very periphery of the space and moving more towards the incision. This was done with a #0 Vicryl utilizing some suture within the fat and superficial layers down towards the fascia of the thigh. This close down the space nicely. It was then noted that there was some stretch to the anterior edge of the incision site. Nevertheless I continued to close down the space. There is then no tension on the skin if anything there was extra tissue seen anteriorly. This was closed in interval fashion with minimal Vicryl sutures crossing at the level of the incision. The skin was then closed with interrupted #3-0 nylon with both horizontal mattress and simple sutures. There is no significant bleeding or ooze. The skin was approximated with some redundancy but this was not excised in order to allow for ample area of healing. A binh dressing was then applied to the wound which had good suction and seal. At the end the case all counts were correct. Sakshi was transferred back to the PACU in stable condition. She will be weightbearing as tolerated. We will do prophylactic antibiotics for 1 week although no signs infection during this case. Date of Procedure: 09/09/24
== END 2024-09-09 17:30 | disposition home or self-care (01) ==
PROVIDERS: PCP Family Medicine; Visit Provider Student in an Organized Health Care Education/Training Program
PROC: (CPT 10140; principal; 2024-09-09 14:15)
DX: T81.31XA Disruption of external operation (surgical) wound, not elsewhere classified, initial encounter (principal); Z96.641 Presence of right artificial hip joint; M96.842 Postprocedural seroma of a musculoskeletal structure following a musculoskeletal system procedure; I48.92 Unspecified atrial flutter; I25.10 Atherosclerotic heart disease of native coronary artery without angina pectoris; I42.9 Cardiomyopathy, unspecified; E11.9 Type 2 diabetes mellitus without complications; I10 Essential (primary) hypertension
CPT/HCPCS: 27047; 13160; J0690; J2003; J2250; J2405; J2704

== ENCOUNTER → 2024-09-11 14:55 | Outpatient (BNVA) | payer MEDICARE, SELFPAY | PROVIDERS: PCP Family Medicine; Referring Provider Family Medicine; Visit Provider Student in an Organized Health Care Education/Training Program | DX: Z47.89 Encounter for other orthopedic aftercare (principal); M96.842 Postprocedural seroma of a musculoskeletal structure following a musculoskeletal system procedure; T81.31XA Disruption of external operation (surgical) wound, not elsewhere classified, initial encounter; Z96.641 Presence of right artificial hip joint | CPT/HCPCS: 97605 ==

== ENCOUNTER → 2024-09-16 13:19 | Outpatient (BNVA) | payer MEDICARE, SELFPAY | PROVIDERS: PCP Family Medicine; Referring Provider Family Medicine | DX: Z47.1 Aftercare following joint replacement surgery (principal); M96.842 Postprocedural seroma of a musculoskeletal structure following a musculoskeletal system procedure; T81.31XA Disruption of external operation (surgical) wound, not elsewhere classified, initial encounter; Z96.641 Presence of right artificial hip joint | CPT/HCPCS: 99024 ==

== ENCOUNTER → 2024-09-22 13:42 | Outpatient (BNVA) | payer MEDICARE, SELFPAY | PROVIDERS: PCP Family Medicine; Visit Provider Student in an Organized Health Care Education/Training Program | DX: M17.11 Unilateral primary osteoarthritis, right knee (principal); M17.12 Unilateral primary osteoarthritis, left knee; M96.842 Postprocedural seroma of a musculoskeletal structure following a musculoskeletal system procedure; T81.31XA Disruption of external operation (surgical) wound, not elsewhere classified, initial encounter; Z96.641 Presence of right artificial hip joint | CPT/HCPCS: 20610; J7325 ==

== ENCOUNTER → 2024-09-29 13:16 | Outpatient (BNVA) | payer MEDICARE, SELFPAY | PROVIDERS: PCP Family Medicine; Referring Provider Family Medicine | DX: Z47.1 Aftercare following joint replacement surgery (principal); T81.31XA Disruption of external operation (surgical) wound, not elsewhere classified, initial encounter; M96.842 Postprocedural seroma of a musculoskeletal structure following a musculoskeletal system procedure; Z96.641 Presence of right artificial hip joint | CPT/HCPCS: 99024 ==

== ENCOUNTER → 2024-10-06 13:04 | Outpatient (BNVA) | payer MEDICARE, SELFPAY | PROVIDERS: PCP Family Medicine; Referring Provider Family Medicine; Visit Provider Student in an Organized Health Care Education/Training Program | DX: Z47.1 Aftercare following joint replacement surgery (principal); M96.842 Postprocedural seroma of a musculoskeletal structure following a musculoskeletal system procedure; T81.31XA Disruption of external operation (surgical) wound, not elsewhere classified, initial encounter; Z96.641 Presence of right artificial hip joint | CPT/HCPCS: 99024 ==

== ENCOUNTER → 2024-10-09 14:56 | Outpatient (BNVA) | payer MEDICARE, SELFPAY | PROVIDERS: PCP Family Medicine; Referring Provider Family Medicine; Visit Provider Student in an Organized Health Care Education/Training Program | DX: T81.31XA Disruption of external operation (surgical) wound, not elsewhere classified, initial encounter (principal) | CPT/HCPCS: 99024 ==

== ENCOUNTER 2024-10-09 19:40 | Outpatient (REF) | payer MEDICARE, SELFPAY | END 2024-10-09 19:41 | disposition home or self-care (01) | LOC: LBN 19:40 | PROVIDERS: PCP Family Medicine; Visit Provider Student in an Organized Health Care Education/Training Program | DX: T81.31XA Disruption of external operation (surgical) wound, not elsewhere classified, initial encounter (principal) | CPT/HCPCS: 87077; 87070; 87075; 87186; 87205 ==

== ENCOUNTER → 2024-10-16 12:57 | Outpatient (BNVA) | payer MEDICARE, SELFPAY | PROVIDERS: PCP Family Medicine; Visit Provider Student in an Organized Health Care Education/Training Program | DX: Z47.1 Aftercare following joint replacement surgery (principal); T81.31XA Disruption of external operation (surgical) wound, not elsewhere classified, initial encounter; M96.842 Postprocedural seroma of a musculoskeletal structure following a musculoskeletal system procedure | CPT/HCPCS: 99024 ==

== ENCOUNTER → 2024-10-30 13:58 | Outpatient (BNVA) | payer MEDICARE, SELFPAY | PROVIDERS: PCP Family Medicine; Referring Provider Family Medicine | DX: Z47.1 Aftercare following joint replacement surgery (principal); T81.31XA Disruption of external operation (surgical) wound, not elsewhere classified, initial encounter; M96.842 Postprocedural seroma of a musculoskeletal structure following a musculoskeletal system procedure; Z96.641 Presence of right artificial hip joint | CPT/HCPCS: 99024 ==

== ENCOUNTER 2024-11-13 14:22 | Outpatient (CLI) | payer MEDICARE, SELFPAY ==
--- NOTE | 2024-11-13 14:15 | DI.RAD_ITS ---
Exam(s) XR FEMUR RT EXAM: XR FEMUR RT CLINICAL HISTORY: mid-thigh pain s/p WILMA. TECHNIQUE: 2D digital imaging was performed. COMPARISON: CR XR HIP LT AP LAT ONLY from 04/21/2024 CR XR HIP RT COMPLETE AP PELVIS from 08/25/2024 FINDINGS: Four views. There is again noted stable satisfactory position alignment of the components of the recently placed prosthesis in the right hip. This was placed on 08/13/2024. There is no evidence of fracture or loosening and no radiographic evidence of osteomyelitis. The low er half of the ipsilateral femur appears unremarkable. IMPRESSION: Stable satisfactory appearance of the recently placed right hip prosthesis. No fractures below this level in the femur nor significant other osseous findings in the femur. DATA REPOSITORY: RADIATION DOSE DELIVERED:
== END 2024-11-13 14:23 | disposition home or self-care (01) ==
LOC: DIORS 14:22
PROVIDERS: PCP Family Medicine; Referring Provider Family Medicine; Visit Provider Physician Assistant
DX: Z96.641 Presence of right artificial hip joint (principal); Z47.1 Aftercare following joint replacement surgery
CPT/HCPCS: 73552; 99024

== ENCOUNTER 2024-12-10 15:24 | Outpatient (REF) | payer MEDICARE, SELFPAY ==
[2024-12-10 21:07] LABS: Abs Immature Grans 0.02 10^3/uL (0.0-0.06); Absolute Basophil Count 0.02 10^3/uL (0.0-0.2); Absolute Eosinophil Count 0.17 10^3/uL (0.0-0.7); Absolute Lymphocyte Count 3.32 10^3/uL (1.2-3.4); Absolute Monocyte Count 0.66 10^3/uL (0.1-0.8); Absolute Neutrophil Count 4.44 10^3/uL (1.2-6.7); Basophils % 0.2 %; HCT 36.7 % (36.0-46.0); HGB 12.2 g/dL (11.2-15.7); Immature Grans % 0.2 %; Lymphocytes % 38.5 %; MCH 30.8 pg (27.0-33.0); MCHC 33.2 % (32.0-36.0); MCV 93 fL (80-95); MPV 11.3 fL (8.0-11.0); Monocytes % 7.6 %; Neutrophils % 51.5 %; Platelet Count 158 10^3/uL (130-400); RBC 3.96 10^6/uL (3.93-5.22); RDW 13.2 % (11.7-14.6); RDW-SD 44.7 fL; WBC 8.63 10^3/uL (4.4-10.8)
[2024-12-10 21:19] LABS: ALT 17 U/L (14-59); AST 22 U/L (15-37); Albumin 4.1 g/dL (3.4-5.0); Alkaline Phosphatase 105 U/L (46-116); Anion Gap 8.1 mmol/L (3-11); BUN 14 mg/dL (7-18); Bilirubin, Total 1.4 mg/dL (0.2-1.0); CO2 30.9 mmol/L (21.0-32.0); CREATININE 0.9 mg/dL (0.55-1.02); Calcium 9.4 mg/dL (8.5-10.1); Chloride 105 mmol/L (98-107); Estimated GFR 70.95 (mL/min/1.73m2); Glucose 85 mg/dL (74-106); Magnesium 1.3 mg/dL (1.8-2.4); Potassium 3.4 mmol/L (3.5-5.1); Sodium 144 mmol/L (136-145); Total Protein 7.4 g/dL (6.4-8.2)
== END 2024-12-10 15:25 | disposition home or self-care (01) ==
LOC: NCHCN 15:24
PROVIDERS: PCP Family Medicine; Visit Provider Family Medicine
DX: I10 Essential (primary) hypertension (principal); M62.838 Other muscle spasm
CPT/HCPCS: 80053; 83735; 85025

== ENCOUNTER 2024-12-29 02:32 | Outpatient (CLI) | payer MEDICARE, SELFPAY ==
[2024-12-29 11:37] LABS: Magnesium 1.7 mg/dL (1.8-2.4); Potassium 3.7 mmol/L (3.5-5.1)
[2024-12-29 13:07] LABS: COMMENT (LAB VIEW ONLY) 250.54 mg/dL; Microalb ug/mg Crea 19.4 ug/mg Cr
== END 2024-12-29 02:33 | disposition home or self-care (01) ==
LOC: LBO 02:33
PROVIDERS: PCP Family Medicine; Visit Provider Family Medicine
DX: E87.6 Hypokalemia (principal); E11.8 Type 2 diabetes mellitus with unspecified complications
CPT/HCPCS: 36415; 82043; 82570; 83735; 84132

== ENCOUNTER 2025-01-13 14:18 | Outpatient (REF) | payer MEDICARE, SELFPAY ==
[2025-01-13 16:14] LABS: Ferritin 77 ng/mL (8-252); Magnesium 1.8 mg/dL (1.8-2.4); Potassium 3.9 mmol/L (3.5-5.1)
== END 2025-01-13 14:19 | disposition home or self-care (01) ==
LOC: NCHCN 14:18
PROVIDERS: PCP Family Medicine; Visit Provider Family Medicine
DX: D50.9 Iron deficiency anemia, unspecified (principal); I10 Essential (primary) hypertension
CPT/HCPCS: 82728; 83735; 84132

== ENCOUNTER → 2025-02-16 14:21 | Outpatient (BNVA) | payer MEDICARE, SELFPAY | PROVIDERS: PCP Family Medicine; Visit Provider Physician Assistant | DX: Z47.1 Aftercare following joint replacement surgery (principal); Z96.641 Presence of right artificial hip joint | CPT/HCPCS: 99213 ==

== ENCOUNTER 2025-04-09 12:58 | Inpatient (IN) | payer MEDICARE, SELFPAY ==
[2025-04-09] VITALS (57 sets, daily range): BP systolic 121–203; BP diastolic 73–155; PULSE 34–88; RESP 14–34; TEMP 35.1–36.2; O2SAT 86–98
--- NOTE | 2025-04-09 13:00 | RT.EKG_ITS ---
APPROVED REPORT Exam: Resting ECG Reason for Exam: nausea and vomiting Patient Location: E HR:71 bpm ECG Measurements Heart Rate 71 AXIS NC 300 P 86 QRSd 150 QRS -36 QT 451 T 73 QTc 491 Conclusion Sinus rhythm...normal P axis, V-rate 60- 99 Prolonged NC interval...NC >220, V-rate 50- 90 Left bundle branch block...QRSd>120, broad/notched R I have reviewed and interpreted ECG and agree with software generated interpretation.
--- NOTE | 2025-04-09 13:30 | DI.CT_ITS ---
Exam(s) CT ABDOMEN PELVIS W EXAM: CT ABDOMEN PELVIS W CLINICAL HISTORY: Vomiting, abdominal pain. TECHNIQUE: Imaging Protocol: Axial computed tomography images with coronal and sagittal reformatted images were created and reviewed CONTRAST MATERIAL: Intravenous: Omnipaque-350 100cc Oral: None COMPARISON: CT CT ABDOMEN PELVIS W from 11/17/2023 FINDINGS: VISUALIZED LUNG BASES: No nodules nor pleural effusions evident. ABDOMEN: There is no ascites. LIVER: Liver again exhibits cirrhotic appearance. There no discrete focal hepatic lesions evident. No dilated intrahepatic ducts. GALLBLADDER/BILIARY: The gallbladder is again noted be surgically absent. CBD is not dilated. PANCREAS: No evidence of significant pancreatic mass nor dilatation of the pancreatic duct. No CT evidence of acute pancreatitis SPLEEN: Splenomegaly again noted. Craniocaudal measurement of the spleen is 14.5 cm. No splenic lesions. Splenic and portal veins are patent. ADRENALS: There are no significant adrenal masses. KIDNEYS:Bilateral nephrolithiasis again noted. There calculi in the lower pole the left kidney and in midpole level of the right kidney. Tiny benign cyst in the lateral cortex of the right kidney is noted which does not require further imaging workup. With respect of the previously described abnormal area of enhancement in the right kidney seen on CT scan of 11/17/2023, this is no longer evident. Indeed, there is cortical indentation at this level which brings on the possibility of interval surgical intervention/excision. Both kidneys enhance normal fashion on today's study.. ABDOMINAL AORTA: Calcified but not enlarged. The iliac arteries are also calcified but not enlarged. LYMPH NODES:There are small nonspecific sub cm retroperitoneal lymph nodes. There also a few small sub cm para-aortic lymph nodes. No gross lymphadenopathy. There is no adenopathy around the aortic bifurcation nor along the iliac chains and there is no inguinal adenopathy. ABDOMINAL WALL: There is a large anterior abdominal wall hernia which is right of center and with hernia sac measuring 17 cm wide by 6 cm AP by 9 cm craniocaudal. This contains distal small bowel and large bowel loops, including the appendix. No evidence of appendicitis. No evidence of bowel obstruction, free air, nor abscess. GI: There is no evidence of bowel obstruction, free air, nor abscess. PELVIS: GI: No evidence of sigmoid diverticulitis. LYMPH NODES: There is no intrapelvic nor inguinal adenopathy. REPRODUCTIVE: Uterus is surgically absent. No abnormal adnexal masses. No free fluid in the pelvis. URINARY BLADDER: Partially obscured by beam hardening artifact from bilateral hip prostheses. OSSEOUS: Bilateral hip prostheses. No fractures. No osseous lesions. IMPRESSION: 1. Bilateral nonobstructive nephrolithiasis. Kidneys enhance normally on today's study and there is no evidence of obvious bowel nephritis nor mass effect in the right kidney, as was evident on the prior CT scan listed above. Indeed, there may have been interval instrumentation/surgery in the right kidney since the findings on the CT scan of October 2023. 2. Large right of center abdominal wall hernia sac which contains distal small bowel as well as the cecum and appendix. No evidence of bowel obstruction. No free air. No ascites. 3. Hepatic cirrhosis, splenomegaly again noted. No ascites. 4. Previous cholecystectomy and hysterectomy again noted. There are also not bilateral hip prostheses. Report called by myself to ER physician 04/09/2025 at 3:30 p.m. RADIATION DOSE DELIVERED: 1,358.47mGy.cm Total DLP DATA REPOSITORY: All CT scans at this facility are submitted to the National Radiology Data Registry (NRDR) Dose Index Registry (DIR) with the [employer] (A[employer]). RADIATION OPTIMIZATION: All CT scans at this facility use at least one of these dose optimization techniques: automated exposure control; mA and/or kV adjustment per patient size (includes targeted exams where dose is matched to clinical indication); or iterative reconstruction.
[2025-04-09] MEDS: Ondansetron 4 MG/2 ML VIAL IVP (13:41)
[2025-04-09] MEDS: Normal Saline 1,000 ML 1000 ML IV (13:41)
[2025-04-09 13:48] LABS: Abs Immature Grans 0.03 10^3/uL (0.0-0.06); HCT 43.2 % (36.0-46.0); HGB 14.8 g/dL (11.2-15.7); Immature Grans % 0.3 %; MCH 32.1 pg (27.0-33.0); MCHC 34.3 % (32.0-36.0); MCV 94 fL (80-95); MPV 10.4 fL (8.0-11.0); Platelet Count 198 10^3/uL (130-400); RBC 4.61 10^6/uL (3.93-5.22); RDW 12.6 % (11.7-14.6); RDW-SD 43.3 fL; WBC 10.35 10^3/uL (4.4-10.8)
[2025-04-09 14:09] LABS: ALT 24 U/L (14-59); AST 33 U/L (15-37); Albumin 4.3 g/dL (3.4-5.0); Alkaline Phosphatase 110 U/L (46-116); Anion Gap 12.7 mmol/L (3-11); BUN 16 mg/dL (7-18); Bilirubin, Total 2.4 mg/dL (0.2-1.0); CO2 24.3 mmol/L (21.0-32.0); Calcium 9.9 mg/dL (8.5-10.1); Chloride 104 mmol/L (98-107); Estimated GFR 62.52 (mL/min/1.73m2); Glucose 218 mg/dL (74-106); Lipase 42 U/L (<78); Potassium 3.8 mmol/L (3.5-5.1); Sodium 141 mmol/L (136-145); Total Protein 8.4 g/dL (6.4-8.2)
[2025-04-09 14:11] LABS: Troponin I 123 ng/L (<or=51)
--- NOTE | 2025-04-09 14:35 | W.ED.GENAD ---
Discharge Plan Disposition Patient Disposition: Admit to [facility] Condition: Stable Discharge Details Clinical Impression: Nausea & vomiting, Non-ST elevation NC (NSTEMI), Pulmonary edema Primary Care Provider: Trev Burr ED Provider: Iban Sams Home Meds and New Rx's Prescriptions: No Action estradiol [Estrace] 0.01 % (0.1 mg/gram) cream 1 appful vaginal DAILY Qty: 42.5 4RF Rx Instructions: daily for 2 weeks then twice weekly Mounjaro 2.5 mg/0.5 mL pen injector 5 mg subcut QWEEK Rx Instructions: for 4 weeks sodium bicarbonate 650 mg tablet 1,300 mg PO BID pravastatin 10 mg tablet 10 mg PO DAILY gabapentin 600 mg tablet 1,200 mg PO TID acyclovir 5 % cream 1 applic TP ONCE PRN Patient Comments: over weekend ferrous sulfate [Iron (ferrous sulfate)] 325 mg (65 mg iron) tablet 325 mg PO DAILY nitroglycerin 0.4 MG tablet, sublingual 0.4 mg Sublingual PRN Patient Comments: 05/04/14: Pt carries NTG but has never had to use it. PG spironolactone 25 mg tablet 25 mg PO DAILY acetaminophen 500 mg tablet 1,000 mg PO Q8H PRN Qty: 90 0RF Rx Instructions: Take two tablets up to every 8 hours as needed for pain mupirocin calcium 2 % cream 1 applic topical BID Qty: 30 0RF aspirin 325 mg tablet 162.5 mg PO .QOD insulin glargine [Basaglar KwikPen U-100 Insulin] 100 unit/mL (3 mL) insulin pen 22 unit subcut QAM insulin lispro [Humalog KwikPen Insulin] 100 unit/mL insulin pen 30 unit SUBCUT TID Rx Instructions: 10 units with meals and 5 units with smaller meals amoxicillin 500 mg tablet 2,000 mg PO .COMPLEX Rx Instructions: 2,000 mg orally 1 hour prior to dental procedure; cyanocobalamin (vitamin B-12) 1,000 mcg capsule 1,000 mcg PO DAILY hydrocodone-acetaminophen 7.5-325 mg tablet 1 tab PO BID PRN loratadine 10 mg tablet 10 mg PO DAILY PRN magnesium oxide 400 mg magnesium tablet 400 mg PO BID thiamine HCl (vitamin B1) 50 mg tablet 50 mg PO DAILY zinc 10 mg tablet 10 mg PO DAILY furosemide 20 mg tablet 40 mg PO DAILY celecoxib 200 mg capsule See Rx Instructions .ROUTE .COMPLEX Qty: 60 3RF Dose Instruction: TAKE ONE CAPSULE BY MOUTH TWICE A DAY NEEDED FOR PAIN AND INFLAMMATION Rx Instructions: TAKE ONE CAPSULE BY MOUTH TWICE A DAY NEEDED FOR PAIN AND INFLAMMATION ondansetron HCl 4 mg tablet 4 mg PO Q6H PRN Patient Comments: TAKE ONE TABLET BY MOUTH EVERY 6 TO 8 HOURS NEEDED NVA Rx Instructions: Q6-8 hours PRN pantoprazole 40 mg tablet,delayed release (DR/EC) 40 mg PO DAILY Qty: 14 0RF carvedilol 12.5 mg tablet 25 mg PO BID Patient Comments: TAKE TWO TABLETS BY MOUTH TWICE A DAY metformin 500 mg tablet extended release 24 hr 1,000 mg PO BID Patient Comments: TAKE TWO TABLETS BY MOUTH TWICE A DAY duloxetine 30 mg capsule,delayed release(DR/EC) 30 mg PO DAILY Patient Comments: TAKE ONE CAPSULE BY MOUTH EVERY DAY potassium chloride 20 mEq tablet extended release 20 meq PO DAILY Patient Comments: TAKE ONE TABLET BY MOUTH EVERY DAY HPI General Date/Time Provider Initiated Documentation: 04/09/25 13:26. HPI Narrative: This is a 64-year-old female with a past medical history of obstructive sleep apnea, congestive heart failure, previous cardiac arrest, coronary artery disease, hypertension, PTSD, OCD, sarcoidosis, diabetes mellitus, previous kidney stones, small bowel resection, parathyroidectomy, cholecystectomy, who presents today for nausea and vomiting. Patient states that she chronically has diarrhea and this has been consistent and unchanged. Symptoms began 2 days ago on Sunday when she began to feel quite dizzy, then had subsequent nausea and vomiting. She has had multiple episodes of vomiting since then. She feels persistently nauseous. She admits to generalized upper abdominal pain today, which she describes as achy in nature. She denies any chest pain, tearing or ripping sensation or other complaint. She has not been able to eat or drink much at all because of the symptoms. No other complaints at this time. Related Data Home Medications ?Medication ?Instructions ?Recorded ?Confirmed nitroglycerin 0.4 mg sublingual 0.4 mg sublingual PRN 11/07/12 04/09/25 tablet acyclovir 5 % topical cream 1 applic topical ONCE PRN 12/19/18 04/09/25 estradiol 0.01% (0.1 mg/gram) 1 appful vaginal DAILY #42.5 grams 10/10/22 04/09/25 vaginal cream (Estrace) spironolactone 25 mg tablet 25 mg PO DAILY 12/28/22 04/09/25 ferrous sulfate 325 mg (65 mg 325 mg PO DAILY 06/22/23 04/09/25 iron) tablet (Iron (ferrous sulfate)) gabapentin 600 mg tablet 1,200 mg PO TID 07/28/24 04/09/25 pravastatin 10 mg tablet 10 mg PO DAILY 07/28/24 04/09/25 sodium bicarbonate 650 mg tablet 1,300 mg PO BID 07/28/24 04/09/25 tirzepatide 2.5 mg/0.5 mL 5 mg subcut QWEEK 07/28/24 04/09/25 subcutaneous pen injector (Luzma) ondansetron HCl 4 mg tablet 4 mg PO Q6H PRN 08/07/24 04/09/25 carvedilol 12.5 mg tablet 25 mg PO BID 08/13/24 04/09/25 duloxetine 30 mg capsule,delayed 30 mg PO DAILY 08/13/24 04/09/25 release metformin 500 mg tablet,extended 1,000 mg PO BID 08/13/24 04/09/25 release 24 hr pantoprazole 40 mg tablet,delayed 40 mg PO DAILY #14 tabs 08/13/24 04/09/25 release potassium chloride 20 mEq 20 meq PO DAILY 09/09/24 04/09/25 tablet,extended release acetaminophen 500 mg tablet 1,000 mg (2 x 500 mg) PO Q8H PRN 10/28/24 04/09/25 pain #90 tabs mupirocin calcium 2 % topical cream 1 applic topical BID #30 grams 12/11/24 04/09/25 amoxicillin 500 mg tablet 2,000 mg PO .COMPLEX 12/23/24 04/09/25 aspirin 325 mg tablet 162.5 mg PO .QOD 12/23/24 04/09/25 cyanocobalamin (vitamin B-12) 1,000 mcg PO DAILY 12/23/24 04/09/25 1,000 mcg capsule hydrocodone 7.5 mg-acetaminophen 1 tab PO BID PRN 12/23/24 04/09/25 325 mg tablet insulin glargine 100 unit/mL (3 22 unit subcut QAM 12/23/24 04/09/25 mL) subcutaneous pen (Basaglar KwikPen U-100 Insulin) insulin lispro 100 unit/mL 30 unit subcut TID 12/23/24 04/09/25 subcutaneous pen (Humalog KwikPen (U-100) Insulin) loratadine 10 mg tablet 10 mg PO DAILY PRN 12/23/24 04/09/25 magnesium oxide 400 mg PO BID 12/23/24 04/09/25 thiamine HCl (vitamin B1) 50 mg 50 mg PO DAILY 12/23/24 04/09/25 tablet zinc 10 mg tablet 10 mg PO DAILY 12/23/24 04/09/25 furosemide 20 mg tablet 40 mg PO DAILY 02/16/25 04/09/25 celecoxib 200 mg capsule See Rx Instructions .Route 03/20/25 04/09/25 .COMPLEX #60 caps Previous Rx's ?Medication ?Instructions ?Recorded estradiol 0.01% (0.1 mg/gram) 1 appful vaginal DAILY #42.5 grams 10/10/22 vaginal cream (Estrace) pantoprazole 40 mg tablet,delayed 40 mg PO DAILY #14 tabs 08/13/24 release acetaminophen 500 mg tablet 1,000 mg (2 x 500 mg) PO Q8H PRN 10/28/24 pain #90 tabs mupirocin calcium 2 % topical cream 1 applic topical BID #30 grams 12/11/24 celecoxib 200 mg capsule See Rx Instructions .Route 03/20/25 .COMPLEX #60 caps Allergies Allergy/AdvReac Type Severity Reaction Status Date / Time erythromycin base Allergy Severe hives Verified 04/09/25 15:59 Sulfa (Sulfonamide Allergy Severe hives Verified 04/09/25 15:59 Antibiotics) atorvastatin Allergy Unknown Itching Verified 04/09/25 15:59 sulfamethoxazole (From Allergy Other (See Verified 04/09/25 15:59 Bactrim) Comment) trimethoprim (From Bactrim) Allergy Other (See Verified 04/09/25 15:59 Comment) magnesium AdvReac Severe Diarrhea Verified 04/09/25 15:59 nitrofurantoin (From AdvReac Severe depression Verified 04/09/25 15:59 Macrobid) clomipramine (From Anafranil) AdvReac Intermediate Other (See Verified 04/09/25 15:59 Comment) ketamine AdvReac Intermediate hallucinati Verified 04/09/25 15:59 ons General Stated Complaint: GenMedical GROVER: 2 Exam Narrative Exam Narrative: 1.Const: Well-nourished, Well-developed, appearing stated age 2.Eyes: PERRL, no conjunctival injection, and symmetrical lids. 3.ENT: Atraumatic external nose and ears. Notably dry MM. Neck: Symmetric, trachea midline, No thyromegaly. 4.CVS: +S1/S2, Peripheral pulses 2+ and equal in all extremities. Brisk capillary refill in all extremities. 5.RESP: Unlabored respiratory effort. Clear to auscultation bilaterally. No wheezes rales or rhonchi 6.GI: Soft, nondistended. Tenderness throughout the upper abdominal region. No guarding or rebound. 7.MSK: Normocephalic/Atraumatic, Extremities w/o deformity or ttp No cyanosis or clubbing, Normal movement of all extremities 8.Skin: Warm, Dry. No rashes or lesions. 9.Neuro: news analyst II-XII grossly intact. Sensation grossly intact, no focal neurologic deficits. 10.Psych: (AAO) x3. Appropriate mood and affect Course Vital Signs Vital signs: Vital Signs Temperature 36.2 C L 04/09/25 13:03 Pulse 71 04/09/25 13:03 Respiratory Rate 20 04/09/25 13:03 Blood Pressure 179/105 H 04/09/25 13:03 Pulse Oximetry 95 04/09/25 13:03 Temperature 36.2 C L 04/09/25 14:17 Pulse 71 04/09/25 14:17 Respiratory Rate 20 04/09/25 14:17 Respiratory Effort Normal 04/09/25 14:17 Respiratory Depth Normal 04/09/25 14:17 Respiratory Pattern Normal 04/09/25 14:17 Blood Pressure 179/105 H 04/09/25 14:17 Pulse Oximetry 95 04/09/25 14:17 Lab/Test Results Lab/Test Results: Laboratory Tests Range/Units 04/09/25 13:30 WBC (4.4-10.8) 10^3/uL 10.35 RBC (3.93-5.22) 10^6/uL 4.61 Hgb (11.2-15.7) g/dL 14.8 Hct (36.0-46.0) % 43.2 MCV (80-95) fL 94 MCH (27.0-33.0) pg 32.1 MCHC (32.0-36.0) % 34.3 RDW (11.7-14.6) % 12.6 Plt Count (130-400) 10^3/uL 198 MPV (8.0-11.0) fL 10.4 Immature Gran % % 0.3 Neutrophils % % 73.6 Lymphocytes % % 19.0 Monocytes % % 5.9 Eosinophils % % 0.9 Basophils % % 0.3 Nucleated RBC % (0.0-0.3) % 0.0 Absolute Neutrophils (1.2-6.7) 10^3/uL 7.62 H Absolute Lymphocytes (1.2-3.4) 10^3/uL 1.97 Absolute Monocytes (0.1-0.8) 10^3/uL 0.61 Absolute Eosinophils (0.0-0.7) 10^3/uL 0.09 Absolute Basophils (0.0-0.2) 10^3/uL 0.03 VBG Lactate (<or=2.0) mmol/L 2.1 Sodium (136-145) mmol/L 141 Potassium (3.5-5.1) mmol/L 3.8 Chloride (98-107) mmol/L 104 Carbon Dioxide (21.0-32.0) mmol/L 24.3 Anion Gap (3-11) mmol/L 12.7 H BUN (7-18) mg/dL 16 Creatinine (0.55-1.02) mg/dL 1.0 Est GFR (CKD-EPI 2020) (mL/min/1.73m2) 62.52 Glucose (74-106) mg/dL 218 H Calcium (8.5-10.1) mg/dL 9.9 Total Bilirubin (0.2-1.0) mg/dL 2.4 H AST (15-37) U/L 33 ALT (14-59) U/L 24 Alkaline Phosphatase (46-116) U/L 110 Troponin I (<or=51) ng/L 123 H* Total Protein (6.4-8.2) g/dL 8.4 H Albumin (3.4-5.0) g/dL 4.3 Lipase (<78) U/L 42 Medical Decision Making This is a 64-year-old female with a past medical history of obstructive sleep apnea, congestive heart failure, previous cardiac arrest, coronary artery disease, hypertension, PTSD, OCD, sarcoidosis, diabetes mellitus, previous kidney stones, small bowel resection, parathyroidectomy, cholecystectomy, who presents today for nausea and vomiting. Patient states that she chronically has diarrhea and this has been consistent and unchanged. Symptoms began 2 days ago on Sunday when she began to feel quite dizzy, then had subsequent nausea and vomiting. She has had multiple episodes of vomiting since then. She feels persistently nauseous. She admits to generalized upper abdominal pain today, which she describes as achy in nature. She denies any chest pain, tearing or ripping sensation or other complaint. She has not been able to eat or drink much at all because of the symptoms. No other complaints at this time. Exam demonstrates abdominal tenderness in the upper abdominal regions, notable nausea dry mucous membranes. Differential is broad but includes obstruction, gastroenteritis, pancreatitis, less likely cardiac etiology. Patient has no horizontal vertical or rotatory nystagmus. No neurologic deficits, with no evidence of focal ataxia. Symptoms appear inconsistent with cerebellar stroke. Will evaluate for concerning etiologies, get CAT scan of the abdomen, rehydrate, monitor closely and reassess. Review of previous echo show ejection fraction around 40 to 50% from last year. 4:48 PM Laboratory workup shows no white count bandemia or left shift. Lactate normal, electrolytes normal, renal function stable, lipase normal. Initial and repeat troponin are elevated at 123 and 145 respectively. EKG shows left bundle branch block which is stable and unchanged otherwise. I did contact [facility] cardiology and discussed the case with Dr. James, and after review of the case, EKG, symptoms appear to be consistent with a type II NSTEMI, and at this time they do not recommend heparinization, but they do recommend echo and continued monitoring and continued serial troponins. Chest x-ray does show some mild pulmonary edema. Her oxygen did dip down to the high 80s after 750 cc. All additional fluids was stopped at that time. Review of prior echo shows an EF of 45% last year. Concerned that there may be a component of pulmonary edema post fluids. With the patient's NSTEMI, nausea vomiting and dehydration, and other symptoms I do not feel that she would be a good candidate for discharge. We will admit. Discussed the case with hospitalist Dr. Early. He agrees assessment plan. I have extensively reviewed the treatment plan with the patient. I have addressed all patient concerns at this time. I have also discussed the plan with the admitting physician and they agree with the current assessment and plan and have agreed to assume responsibility for the patient. All parties demonstrate verbal understanding and agreement with our assessment and plan at this time. The documentation in this chart was dictated using [employer] dictation software. Please excuse any dictation errors. FINDINGS: Single AP portable view. Heart size is upper normal-minimally prominent. Mediastinum is not widened. There is symmetrical bilateral interstitial pattern consistent with interstitial pulmonary edema. There are no obvious pleural effusions. No fractures. No pneumothorax IMPRESSION: Bilateral interstitial pulmonary edema. No obvious pleural effusions heart size is upper normal-minimally prominent. Quality:SDOH Health Related Social Needs: Health related social needs transpo insecurity lonely/isolated PFSH All Active Problems (Updated 04/09/25 @ 16:52 by Iban Sams DO) Pulmonary edema (Acute) Non-ST elevation NC (NSTEMI) (Acute) Nausea & vomiting (Acute) Tinnitus of both ears (Acute) Benign paroxysmal positional vertigo of left ear (Acute) Pain disorder associated with psychological and physical factors (Acute) Sensorineural hearing loss (SNHL) of both ears (Acute) Chronic pain syndrome (Chronic) Lumbar spondylosis (Acute) Diabetic peripheral neuropathy (Acute) Surgical wound dehiscence (Acute) Painful breasts (Acute) Breast lump (Acute) Lumbar radiculitis (Acute) Left lumbar radiculopathy (Acute) SVT (supraventricular tachycardia) (Chronic) DVT prophylaxis (Acute) Sepsis (Acute) Acute dehydration (Acute) Pyelonephritis (Acute) Nausea & vomiting (Acute) Elevated troponin level not due to acute coronary syndrome (Acute) Atrial flutter, paroxysmal (Acute) Pyelonephritis, acute (Acute) Lipoma (Acute) Lateral epicondylitis of right elbow (Acute) Peripheral neuropathy (Acute) Vaginal dryness, menopausal (Acute) UTI (urinary tract infection) (Acute) Diarrhea (Acute) Gross hematuria (Acute) Tendinitis of left elbow (Acute) Breast pain, left (Acute) 09/2019. Physical exam unremarkable. No additional testing ordered. Right rotator cuff tendinitis (Acute) Steroid injection: 02/07/2021; 04/14/2019 Diabetes (Chronic) Hydronephrosis (Acute) Morbid obesity (Chronic) Leukocytosis (leucocytosis) (Acute) Renal insufficiency (Chronic) Lactic acid acidosis (Acute) Hyperglycemia (Chronic) Incarcerated incisional hernia (Acute) Primary osteoarthritis of both knees (Chronic 07/26/15) Synvisc injections for many years Most recent Synvisc injections: 09/22/24; 06/22/2023; 12/11/2022; 06/05/2022; 12/02/2021; 12/11/22; 06/22/23 Cystocele (Acute 04/13/15) Flank pain (Acute) Recurrent UTI (Chronic) Hematuria (Acute) Medical History Midline cystocele Severe obesity Obstructive sleep apnea syndrome Polyneuropathy Intestinal malabsorption Non-toxic uninodular goiter Disorder of vitamin B12 Iron deficiency anemia Pain, lower extremity Idiopathic osteoarthritis Tubulointerstitial nephritis Heart failure Cardiac arrest Spasm Atherosclerosis of coronary artery without angina pectoris Uses self-applied continuous glucose monitoring device Osteoarthritis of hips, bilateral Calcium nephrolithiasis Bile acid malabsorption syndrome History of palpitations CAD (coronary artery disease) Vertigo Chronic lower back pain Urinary incontinence Osteoma Hypertension Neuropathy Chronic pain Degenerative joint disease Chronic leg pain Hypomagnesemia Hyperparathyroidism Plantar fasciitis Thyroid nodule Obstructive nephropathy Incisional hernia Herpes simplex Diarrhea Vaginitis Acute stress disorder PTSD (post-traumatic stress disorder) Per pt. states triggers for her are loud noises, and slammed doors Cirrhosis of liver Other chromoabnormalities of urine Former smoker quit smoking 07/23/16 Depression Cardiomyopathy Urinary incontinence, mixed Obsessive compulsive disorder Vaginal wall prolapse Congestive heart failure Anemia Sleep apnea Sarcoidosis Anxiety Congenital ureterovesical obstruction Diabetes mellitus Kidney stone Essential hypertension Surgical History History of tonsillectomy and adenoidectomy Seroma of musculoskeletal structure after musculoskeletal system procedure Status post I&D of right hip wound and seroma on 09/09/2024 Additional aspiration of ~50 cc on 09/22/24 History of total right hip replacement (08/13/24) History of tooth extraction History of resection of small bowel r/t obstruction H/O parathyroidectomy History of hernia repair S/P total left hip arthroplasty (04/18/23) Tonsillectomy and adenoidectomy Open Carpal Tunnel release Oophrectomy, Both Lithotripsy Abdominal hysterectomy Fracture, Open Treatment Cholecystectomy Family History Mother Diabetes Heart disease Father Personal history of malignant neoplasm Lung Cancer Sister Personal history of malignant neoplasm Thyroid Cancer Maternal Grandmother Diabetes Social History Smoking/Tobacco Use Status: Former Tobacco Use Quit Date: 07/23/16 Smoking risk assessment performed?: Yes Alcohol Intake: former Drug use: Rarely Substance use type: marijuana Details: Cannabis gummies. Housing: apartment Current gender identity: female Do you feel safe at home: Yes Additional Social history: lives alone
--- NOTE | 2025-04-09 15:00 | DI.RAD_ITS ---
Exam(s) XR PORTABLE CHEST AP EXAM: XR PORTABLE CHEST AP CLINICAL HISTORY: SOB. TECHNIQUE: 2D digital imaging was performed. COMPARISON: CR,XR XR PORTABLE CHEST AP from 03/16/2024 FINDINGS: Single AP portable view. Heart size is upper normal-minimally prominent. Mediastinum is not widened. There is symmetrical bilateral interstitial pattern consistent with interstitial pulmonary edema. There are no obvious pleural effusions. No fractures. No pneumothorax IMPRESSION: Bilateral interstitial pulmonary edema. No obvious pleural effusions heart size is upper normal-minimally prominent. DATA REPOSITORY: RADIATION DOSE DELIVERED:
[2025-04-09 15:07] LABS: Troponin I 145 ng/L (<or=51)
[2025-04-09] MEDS: Levalbuterol 1.25 MG/3 ML UPD VIAL UPD (16:03)
--- NOTE | 2025-04-09 16:31 | W.PM.HP.N ---
Date of service: 04/09/25 Time of Service: 16:31 Assessment and Plan Assessment and plan (1) Troponin level elevated: Status: Acute Assessment and plan: 123, 145 then 307 will continue to trend Telemetry No chest pain but new Oxygen needs s/p IVF 750 cc IV lasix (2) Demand ischemia of myocardium: Status: Acute Assessment and plan: As above int he setting of point 4 (3) Hypoxic respiratory failure: Status: Acute Assessment and plan: In the setting of point 4 and 5 New oxygen requirement at home - now on 3l/min of O2 via nasal canula Maintain sat 92% despite Hx of COPD in the setting of DDx of NSTEMI type II (4) Acute exacerbation of CHF (congestive heart failure): Status: Acute Assessment and plan: BNP 3602 and as per point 1 and 2 No chest pain but new Oxygen needs s/p IVF 750 cc IV lasix now then BID - adjust dosing as needed for resolution of acute hypoxic respiratory failure Will hold coreg and oral diuretics Last LEVF 40-45% on 08/07/24- HFmrEF Echo in AM Bilateral B-lines seen with POCUS LV appears hypokinetic VS reduced EF on POCUS at bedside Labs in AM (5) Elevated brain natriuretic peptide (BNP) level: Status: Acute Assessment and plan: As above (6) Diabetes: Status: Chronic Assessment and plan: Gluc AC and HS with SSI coverage home dose bolus insulin Hold oral meds (7) COPD (chronic obstructive pulmonary disease): Status: Chronic Assessment and plan: Ongoing home meds now on O2 as per point 3 consider NIV PRN (8) Diarrhea: Status: Acute Assessment and plan: Mentioned chronic diarrhea but on Tirzepatide at home but considering infectious causes -c-diff testing and stool pathogens (9) Anxiety: Assessment and plan: Will monintor and consider low dose ativan PRN (10) Sarcoidosis: Assessment and plan: In remission as per patient (11) Benign paroxysmal positional vertigo of left ear: Status: Acute Assessment and plan: Seen by PT outpatient not able tolerate meclizine (12) Nausea & vomiting: Status: Acute Assessment and plan: nausea for 3- 4 days new vomiting today - did not keep AM meds down Aslo on Tirzepatide PRN antiemetics (13) DVT prophylaxis: Status: Acute Assessment and plan: LMWH discussed with Dr. Zuleta History of Present Illness History of Present Illness Chief Complaint: dizziness , nausea, vomiting, chronic diarrhea Narrative: This 64-year-old female with a past medical history of obstructive sleep apnea, congestive heart failure with LVEF 40-45% in 07/2024, previous cardiac arrest, coronary artery disease, hypertension, PTSD, OCD, sarcoidosisin remission, diabetes mellitus on insulin , previous kidney stones, small bowel resection, parathyroidectomy, cholecystectomy, vertigo and seen by PT outpatient recently presented to the ED today for evaluation of nausea for 2 days, dizziness and vomiting today without hematemesis but with new abdominal pain , chronic diarrhea w/o report of hematochezia . She denies change in vision,headache congestion chest pain, tearing or ripping sensation, dysuria or other complaint. Reporting , chills, subjective fever, decreased enteral intake d/t her GI symptoms. Also mentioned feeling restricted when inhaling for deep breathing. EKG w/o coronary occlusion but troponin positive and trending up. Blood work otherwise unremarkable except T. bili at 2.4. CT imaging showed large right of center abdominal wall hernia with bowel loops and appendix w/o obstruction, non-obstructive bilateral nephrolithiasis, hepatic cirrhosis and splenomegaly. Chest XR showed mild pulmonary edema. The patient experienced new oxygen requirement s/p IVF 750 cc with saturation down to the 80's . Dr. Sams discussed cardiovascular findings with [facility] [place] DrDiego James and it was deemed that the patient was having NSTEMI type II/ demand ischemia with recommendation for admission, troponin trending, echocardiogram in AM and no heparinization. The patient was admitted to the medical surgical floor with telemetry by the hospitalist team for furhter evaluation and management. 2016 COLST form ,mentioned DNR/DNI, status confirmed with patient when seen in the ED but later told RN that she whishes to be a full code. BNP added to labs and was 3602- will give IV lasix. Review of Systems All systems reviewed & are unremarkable except as noted in HPI and below PFSH All Active Problems (Updated 04/09/25 @ 17:48 by Cristela Zavala APRN) Acute exacerbation of CHF (congestive heart failure) (Acute) Hypoxic respiratory failure (Acute) COPD (chronic obstructive pulmonary disease) (Chronic) Elevated brain natriuretic peptide (BNP) level (Acute) Demand ischemia of myocardium (Acute) Troponin level elevated (Acute) Pulmonary edema (Acute) Non-ST elevation CT (NSTEMI) (Acute) Nausea & vomiting (Acute) Tinnitus of both ears (Acute) Benign paroxysmal positional vertigo of left ear (Acute) Pain disorder associated with psychological and physical factors (Acute) Sensorineural hearing loss (SNHL) of both ears (Acute) Chronic pain syndrome (Chronic) Lumbar spondylosis (Acute) Diabetic peripheral neuropathy (Acute) Surgical wound dehiscence (Acute) Painful breasts (Acute) Breast lump (Acute) Lumbar radiculitis (Acute) Left lumbar radiculopathy (Acute) SVT (supraventricular tachycardia) (Chronic) DVT prophylaxis (Acute) Sepsis (Acute) Acute dehydration (Acute) Pyelonephritis (Acute) Nausea & vomiting (Acute) Elevated troponin level not due to acute coronary syndrome (Acute) Atrial flutter, paroxysmal (Acute) Pyelonephritis, acute (Acute) Lipoma (Acute) Lateral epicondylitis of right elbow (Acute) Peripheral neuropathy (Acute) Vaginal dryness, menopausal (Acute) UTI (urinary tract infection) (Acute) Diarrhea (Acute) Gross hematuria (Acute) Tendinitis of left elbow (Acute) Breast pain, left (Acute) 09/2019. Physical exam unremarkable. No additional testing ordered. Right rotator cuff tendinitis (Acute) Steroid injection: 02/07/2021; 04/14/2019 Diabetes (Chronic) Hydronephrosis (Acute) Morbid obesity (Chronic) Leukocytosis (leucocytosis) (Acute) Renal insufficiency (Chronic) Lactic acid acidosis (Acute) Hyperglycemia (Chronic) Incarcerated incisional hernia (Acute) Primary osteoarthritis of both knees (Chronic 07/26/15) Synvisc injections for many years Most recent Synvisc injections: 09/22/24; 06/22/2023; 12/11/2022; 06/05/2022; 12/02/2021; 12/11/22; 06/22/23 Cystocele (Acute 04/13/15) Flank pain (Acute) Recurrent UTI (Chronic) Hematuria (Acute) Medical History Midline cystocele Severe obesity Obstructive sleep apnea syndrome Polyneuropathy Intestinal malabsorption Non-toxic uninodular goiter Disorder of vitamin B12 Iron deficiency anemia Pain, lower extremity Idiopathic osteoarthritis Tubulointerstitial nephritis Heart failure Cardiac arrest Spasm Atherosclerosis of coronary artery without angina pectoris Uses self-applied continuous glucose monitoring device Osteoarthritis of hips, bilateral Calcium nephrolithiasis Bile acid malabsorption syndrome History of palpitations CAD (coronary artery disease) Vertigo Chronic lower back pain Urinary incontinence Osteoma Hypertension Neuropathy Chronic pain Degenerative joint disease Chronic leg pain Hypomagnesemia Hyperparathyroidism Plantar fasciitis Thyroid nodule Obstructive nephropathy Incisional hernia Herpes simplex Diarrhea Vaginitis Acute stress disorder PTSD (post-traumatic stress disorder) Per pt. states triggers for her are loud noises, and slammed doors Cirrhosis of liver Other chromoabnormalities of urine Former smoker quit smoking 07/23/16 Depression Cardiomyopathy Urinary incontinence, mixed Obsessive compulsive disorder Vaginal wall prolapse Congestive heart failure Anemia Sleep apnea Sarcoidosis Anxiety Congenital ureterovesical obstruction Diabetes mellitus Kidney stone Essential hypertension Surgical History History of tonsillectomy and adenoidectomy Seroma of musculoskeletal structure after musculoskeletal system procedure Status post I&D of right hip wound and seroma on 09/09/2024 Additional aspiration of ~50 cc on 09/22/24 History of total right hip replacement (08/13/24) History of tooth extraction History of resection of small bowel r/t obstruction H/O parathyroidectomy History of hernia repair S/P total left hip arthroplasty (04/18/23) Tonsillectomy and adenoidectomy Open Carpal Tunnel release Oophrectomy, Both Lithotripsy Abdominal hysterectomy Fracture, Open Treatment Cholecystectomy Family History Mother Diabetes Heart disease Father Personal history of malignant neoplasm Lung Cancer Sister Personal history of malignant neoplasm Thyroid Cancer Maternal Grandmother Diabetes Social History Smoking/Tobacco Use Status: Former Tobacco Use Quit Date: 07/23/16 Smoking risk assessment performed?: Yes Alcohol Intake: former Drug use: Rarely Substance use type: marijuana Details: Cannabis gummies. Housing: apartment Current gender identity: female Do you feel safe at home: Yes Additional Social history: lives alone Meds Allergies and Home Medications Allergies Allergy/AdvReac Type Severity Reaction Status Date / Time erythromycin base Allergy Severe hives Verified 04/09/25 15:59 Sulfa (Sulfonamide Allergy Severe hives Verified 04/09/25 15:59 Antibiotics) atorvastatin Allergy Unknown Itching Verified 04/09/25 15:59 sulfamethoxazole (From Allergy Other (See Verified 04/09/25 15:59 Bactrim) Comment) trimethoprim (From Bactrim) Allergy Other (See Verified 04/09/25 15:59 Comment) magnesium AdvReac Severe Diarrhea Verified 04/09/25 15:59 nitrofurantoin (From AdvReac Severe depression Verified 04/09/25 15:59 Macrobid) clomipramine (From Anafranil) AdvReac Intermediate Other (See Verified 04/09/25 15:59 Comment) ketamine AdvReac Intermediate hallucinati Verified 04/09/25 15:59 ons Home Medications ?Medication ?Instructions ?Recorded ?Confirmed ?Type nitroglycerin 0.4 mg sublingual 0.4 mg sublingual PRN 11/07/12 04/09/25 History tablet acyclovir 5 % topical cream 1 applic topical ONCE PRN 12/19/18 04/09/25 History estradiol 0.01% (0.1 mg/gram) 1 appful vaginal DAILY #42.5 grams 10/10/22 04/09/25 Rx vaginal cream (Estrace) spironolactone 25 mg tablet 25 mg PO DAILY 12/28/22 04/09/25 History ferrous sulfate 325 mg (65 mg 325 mg PO DAILY 06/22/23 04/09/25 History iron) tablet (Iron (ferrous sulfate)) gabapentin 600 mg tablet 1,200 mg PO TID 07/28/24 04/09/25 History pravastatin 10 mg tablet 10 mg PO DAILY 07/28/24 04/09/25 History sodium bicarbonate 650 mg tablet 1,300 mg PO BID 07/28/24 04/09/25 History tirzepatide 2.5 mg/0.5 mL 5 mg subcut QWEEK 07/28/24 04/09/25 History subcutaneous pen injector (Mounjaro) ondansetron HCl 4 mg tablet 4 mg PO Q6H PRN 08/07/24 04/09/25 History carvedilol 12.5 mg tablet 25 mg PO BID 08/13/24 04/09/25 History duloxetine 30 mg capsule,delayed 30 mg PO DAILY 08/13/24 04/09/25 History release metformin 500 mg tablet,extended 1,000 mg PO BID 08/13/24 04/09/25 History release 24 hr pantoprazole 40 mg tablet,delayed 40 mg PO DAILY #14 tabs 08/13/24 04/09/25 Rx release potassium chloride 20 mEq 20 meq PO DAILY 09/09/24 04/09/25 History tablet,extended release acetaminophen 500 mg tablet 1,000 mg (2 x 500 mg) PO Q8H PRN 10/28/24 04/09/25 Rx pain #90 tabs mupirocin calcium 2 % topical cream 1 applic topical BID #30 grams 12/11/24 04/09/25 Rx amoxicillin 500 mg tablet 2,000 mg PO .COMPLEX 12/23/24 04/09/25 History aspirin 325 mg tablet 162.5 mg PO .QOD 12/23/24 04/09/25 History cyanocobalamin (vitamin B-12) 1,000 mcg PO DAILY 12/23/24 04/09/25 History 1,000 mcg capsule hydrocodone 7.5 mg-acetaminophen 1 tab PO BID PRN 12/23/24 04/09/25 History 325 mg tablet insulin glargine 100 unit/mL (3 22 unit subcut QAM 12/23/24 04/09/25 History mL) subcutaneous pen (Basaglar KwikPen U-100 Insulin) insulin lispro 100 unit/mL 30 unit subcut TID 12/23/24 04/09/25 History subcutaneous pen (Humalog KwikPen (U-100) Insulin) loratadine 10 mg tablet 10 mg PO DAILY PRN 12/23/24 04/09/25 History magnesium oxide 400 mg PO BID 12/23/24 04/09/25 History thiamine HCl (vitamin B1) 50 mg 50 mg PO DAILY 12/23/24 04/09/25 History tablet zinc 10 mg tablet 10 mg PO DAILY 12/23/24 04/09/25 History furosemide 20 mg tablet 40 mg PO DAILY 02/16/25 04/09/25 History celecoxib 200 mg capsule See Rx Instructions .Route 03/20/25 04/09/25 Rx .COMPLEX #60 caps Exam Narrative Exam Narrative: Alert and oriented X4, appears weak sitting in chair with o2 at 3l/min via nasal canula otherwise not acute distress, ongoing intermittent nausea, neurologically intact, regular heart rate , S1, S2, no murmur- 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 with BBB, shallow breathing when asked to take deep breath - diminished bilateral lower lobes, abdomen is obese, non-distended, soft and non-tender, no CVA tenderness, no leg swelling Results Labs 04/09/25 13:30 04/09/25 13:30 Labs: Laboratory Results - last 24 hr 04/09/25 04/09/25 13:30 14:27 WBC 10.35 RBC 4.61 Hgb 14.8 Hct 43.2 MCV 94 MCH 32.1 MCHC 34.3 RDW 12.6 Plt Count 198 MPV 10.4 Immature Gran % 0.3 Neutrophils % 73.6 Lymphocytes % 19.0 Monocytes % 5.9 Eosinophils % 0.9 Basophils % 0.3 Nucleated RBC % 0.0 Absolute Neutrophils 7.62 H Absolute Lymphocytes 1.97 Absolute Monocytes 0.61 Absolute Eosinophils 0.09 Absolute Basophils 0.03 VBG Lactate 2.1 Sodium 141 Potassium 3.8 Chloride 104 Carbon Dioxide 24.3 Anion Gap 12.7 H BUN 16 Creatinine 1.0 Est GFR (CKD-EPI 2020) 62.52 Glucose 218 H Calcium 9.9 Total Bilirubin 2.4 H AST 33 ALT 24 Alkaline Phosphatase 110 Troponin I 123 H* 145 H* Total Protein 8.4 H Albumin 4.3 Lipase 42 Last Vital Signs Temp 36.2 C L 04/09/25 14:17 Pulse 79 04/09/25 15:37 Resp 21 04/09/25 15:37 BP 203/120 H 04/09/25 15:37 Pulse Ox 87 L 04/09/25 15:38 Time Spent Time spent with Patient: >75 minutes Time was spent: preparing to see the patient(eg.review tests), obtaining and/or reviewing separately otained hiistory, ordering medications,tests, procedures, referring, communicating with other health rn intensive care unit, indepentently interpreting results, counseling the patient, care coordination and other
[2025-04-09 17:16] LABS: Troponin I 307 ng/L (<or=51)
[2025-04-09 17:23] LABS: NT-proBNP 3602 pg/mL (<300)
--- NOTE | 2025-04-09 17:45 | RT.EKG_ITS ---
APPROVED REPORT Exam: Resting ECG Reason for Exam: bradycardia Patient Location: E HR:84 bpm ECG Measurements Heart Rate 84 AXIS NH 90 P 0 QRSd 153 QRS -35 QT 541 T 69 QTc 641 Conclusion Sinus rhythm...normal P axis, V-rate 60- 99 Left bundle branch block...QRSd>120, broad/notched R Prolonged QT interval...QTc >500mS
[2025-04-09] MEDS: Furosemide 20 MG/2 ML VIAL IVP (18:03)
--- NOTE | 2025-04-09 19:15 | RT.EKG_ITS ---
APPROVED REPORT Exam: Resting ECG Reason for Exam: Rhythm haseeb Patient Location: I HR:69 bpm ECG Measurements Heart Rate 69 AXIS WY 294 P 39 QRSd 159 QRS -27 QT 522 T 22 QTc 560 Conclusion Sinus bradycardia...rate< 50 Atrial premature complexes in couplets...pair SV complexes w/ short R-R Prolonged WY interval...WY >220, V-rate 50- 90 Consider left atrial enlargement...wide or notched P waves Excessive artifact IVCD Baseline wander in lead(s) I,II,aVR
[2025-04-09 19:25] LABS: Magnesium 1.6 mg/dL (1.8-2.4)
[2025-04-09 19:47] LABS: Troponin I 589 ng/L (<or=51)
[2025-04-09] MEDS: MAGNESIUM SULFATE 4 GM/100 ML BAG IV_INF (19:49)
[2025-04-09] MEDS: Pantoprazole 40 MG VIAL IVP (19:54)
[2025-04-09] MEDS: Furosemide 40 MG/4 ML VIAL IVP (19:54)
[2025-04-09] MEDS: Magnesium Oxide 400 MG TAB PO (19:54)
[2025-04-09] MEDS: Gabapentin 600 MG TAB 1200 MG PO (19:55)
[2025-04-09 21:16] LABS: Bilirubin, Direct 0.6 mg/dL (0.0-0.2); TSH (W/Ref FT4) 1.93 uIU/mL (0.36-3.74)
[2025-04-09 21:18] LABS: D-Dimer 1188 ng/mlFEU (<500)
[2025-04-09] MEDS: MORPHine 2 MG/ML SYR 1 MG IVP (22:15)
[2025-04-09 23:35] LABS: Troponin I 1682 ng/L (<or=51)
[2025-04-10] VITALS (99 sets, daily range): BP systolic 93–144; BP diastolic 54–104; PULSE 44–116; RESP 13–35; TEMP 36.3–36.6; O2SAT 86–98
[2025-04-10] MEDS: Enoxaparin 40 MG/0.4 ML SYR SC ×2 (00:15→08:42)
[2025-04-10] MEDS: Normal Saline Flush 10 ML SYR IVP ×2 (00:19→08:42)
[2025-04-10 01:26] LABS: Glucose Negative (Negative)
[2025-04-10 01:42] LABS: Cannabinoids THC Positive (Negative); METHADONE URINE SCREEN Negative (Negative)
[2025-04-10 01:48] LABS: C & S Indicated? No; RBC 0-2 HPF (0-2)
[2025-04-10 03:05] LABS: Anion Gap 12.0 mmol/L (3-11); BUN 17 mg/dL (7-18); CO2 25.0 mmol/L (21.0-32.0); Calcium 9.5 mg/dL (8.5-10.1); Chloride 103 mmol/L (98-107); Estimated GFR 70.95 (mL/min/1.73m2); Glucose 154 mg/dL (74-106); Potassium 3.5 mmol/L (3.5-5.1); Sodium 140 mmol/L (136-145)
[2025-04-10 03:13] LABS: Magnesium 2.4 mg/dL (1.8-2.4)
[2025-04-10 03:14] LABS: Troponin I 2901 ng/L (<or=51)
[2025-04-10 06:53] LABS: HCT 41.3 % (36.0-46.0); HGB 14.3 g/dL (11.2-15.7); MCH 32.6 pg (27.0-33.0); MCHC 34.6 % (32.0-36.0); MCV 94 fL (80-95); MPV 10.5 fL (8.0-11.0); Platelet Count 198 10^3/uL (130-400); RBC 4.38 10^6/uL (3.93-5.22); RDW 13.0 % (11.7-14.6); RDW-SD 44.7 fL; WBC 15.19 10^3/uL (4.4-10.8)
[2025-04-10 07:22] LABS: ALT 21 U/L (14-59); AST 33 U/L (15-37); Albumin 3.6 g/dL (3.4-5.0); Alkaline Phosphatase 93 U/L (46-116); Anion Gap 13.6 mmol/L (3-11); BUN 18 mg/dL (7-18); Bilirubin, Total 2.9 mg/dL (0.2-1.0); CO2 24.4 mmol/L (21.0-32.0); Calcium 9.4 mg/dL (8.5-10.1); Chloride 103 mmol/L (98-107); Estimated GFR 70.95 (mL/min/1.73m2); Glucose 155 mg/dL (74-106); Potassium 3.3 mmol/L (3.5-5.1); Sodium 141 mmol/L (136-145); Total Protein 7.3 g/dL (6.4-8.2)
[2025-04-10 07:25] LABS: Troponin I 3012 ng/L (<or=51)
--- NOTE | 2025-04-10 07:30 | DI.US_ITS ---
APPROVED REPORT EXAM: Comprehensive 2D, Doppler, and color-flow Echocardiogram Patient Location: In-Patient Room/Bed: [address] [employer] Coordinator: Óscar Fong RDCS (AE) Indications: HFmrEF exacerbation Other Information Study Quality: Fair. Technically limited study due to body habitus. Conclusion Dilated left ventricle. Normal left ventricular wall thickness. Ejection fraction is 40 to 45%. There is global hypokinesis Normal right ventricular size and function Both atria are normal in size There are no structural valvular abnormalities Estimated right ventricular systolic pressure is 26 mmHg Wall motion Left Ventricle Left ventricle is moderately dilated. Left ventricular ejection fraction is decreased. There is normal left ventricular wall thickness. There is global hypokinesis of the left ventricle. There is no ventricular septal defect visualized. LVEF is 35 to 40%. Right Ventricle The right ventricle is normal size. The right ventricular systolic function is normal. Atria The left atrium size is normal. The right atrium size is normal. The interatrial septum is intact with no evidence for an atrial septal defect. Aortic Valve The aortic valve is normal in structure. Aortic valve is trileaflet. There is no aortic valvular stenosis. No aortic regurgitation is present. Mitral Valve The mitral valve is normal in structure. No evidence of mitral valve stenosis. Trace to mild mitral regurgitation. Tricuspid Valve The tricuspid valve is normal in structure. There is no tricuspid valve stenosis. Trace tricuspid regurgitation. The RVSP is 26.3 mmHg. Pulmonic Valve The pulmonary valve is normal in structure. There is no pulmonic valvular stenosis. There is no pulmonic valvular regurgitation. Great Vessels The aortic root is normal in size. The ascending aorta is normal Aortic arch is normal in caliber. IVC is normal in size and collapses >50% with inspiration. Pericardium There is no pericardial effusion. 2D Dimensions IVSD d PLAX 0.90 cm F: 0.6-1.0 Ao Root d 3.41 cm F: 2.7 - 3.3 LVPW d PLAX 0.91 cm F: 0.6 - 1.0 Ao Asc Diam d 3.27 cm F: 2.3 - 3.1 LVID d PLAX 6.49 cm F: 3.8 - 5.2 LVDs 5.89 cm F: 2.2 - 3.5 LV EF Teichholz 20.0 % FS 9.32 % LV EDV (Teich) 215.3 mL LV ESV (Teich) 172.3 mL Stroke Vol Index (Teich) 18.79 M-Mode TAPSE 2.09 cm (M/F) >1.7 Auto EF LV EDV A4C 136.4 mL LV EDV A2C 97.3 mL LV EDV BP 116.7 mL LV ESV A4C 109.8 mL LV ESV A2C 72.9 mL LV ESV BP 91.0 mL LVEF(%) A4C 19.5 % LVEF(%) A2C 25.1 % LVEF(%) BP 22.1 % LV SV A4C 26.7 ml LV SV A2C 24.4 ml LV SV BP 25.8 ml LV CO A4C 1.2 L/min LV CO A2C 1.1 L/min LV CO BP 1.1 L/min HR A4C 44.50 BPM HR A2C 45.06 BPM LV EDV Index (BP) LA Volume LA Length A4C 4.9 cm LA Length A2C 5.6 cm LA Area A4C s 11.67 cm2 LA Area A2C s 15.97 cm2 LA Vol A4C A-L 23.40 mL LA Vol A2C A-L 38.78 mL LA Vol Biplane A-L 32.0 mL LA Vol/BSA A4C A-L LA Vol/BSA A2C A-L LA Vol/BSA BP A-L 14.0 mL/m2 LA Vol A4C MOD 22.5 mL LA Vol A2C MOD 37.0 mL LA Vol BP MOD 30.3 mL RA Volume RA Area A4C 9.1 cm2 RA ESV A4C (A-L) 20.2mL RA Vol/BSA A4C A-L RA Length A4C 3.5 cm RA ESV A4C (MOD) 19.5mL LV Diastology MV E' medial 0.087 (>0.07 m/s) MV E Vmax 1.18 (0.4-1.3 m/s) MV E/E' MED 13.57 (<14) MV A Vmax 0.85 (0.4-1.3 m/s) MV E' lateral 0.126 (>0.1 m/s) E/A Ratio 1.4 MV E/E' LAT 9.38 (<14) MV E' Average 0.106 m/s MV E/E'(average) 11.09 Aortic Valve AoV Vmax 2.09 m/s LVOT Vmax 0.90 m/s AoV Peak Grad 17.5 mmHg LVOT Peak Grad 3.2 mmHg AoV Area (Vmax) 1.83 cm2 LVOT VTI 0.178 m AoV VTI 0.417 m LVOT Mean Grad 2.0 mmHg AoV Mean Baron. 1.51 m/s LVOT SV 75.91 mL AoV Mean Grad 10.0 mmHg LVOT Diam s 2.30 cm AoV Area (VTI) 1.82 cm2 AV Regurg Peak Gr. 17.49 mmHg Velocity Ratio 0.43 Mitral Valve MV DT 140 (160-240 msec) Pulmonary Valve RVOT Vmax 0.63 m/s RVOT Peak Gr. 1.6 mmHg RVOT VTI 0.096 m RVOT Mean Gr. 0.5 mmHg Tricuspid Valve RA Pressure 3.00 mmHg TR Vmax 2.41 m/s TR Peak Grad 23.2 mmHg RVSP (TR) 26.3 mmHg
--- NOTE | 2025-04-10 07:45 | RT.EKG_ITS ---
APPROVED REPORT Exam: Resting ECG Reason for Exam: increasing troponin Patient Location: I HR:71 bpm ECG Measurements Heart Rate 71 AXIS NV 287 P 63 QRSd 161 QRS -48 QT 507 T -7 QTc 552 Conclusion Sinus rhythm...normal P axis, V-rate 50- 99 Prolonged NV interval...NV >220, V-rate 50- 90 Probable left atrial enlargement...P >50mS, LBBB
[2025-04-10] MEDS: DULoxetine 30 MG CAP PO (08:40)
[2025-04-10] MEDS: Aspirin 325 MG TAB 162.5 MG PO (08:40)
--- NOTE | 2025-04-10 08:40 | PDOC.CMIN ---
Date of service: 04/10/25 Time of Service: 08:40 Care Management Initial Assmt Initial Assessment Reason for Hospitalization: NSTEMI Functional Status/Living Situation Patient Presentation: Sakshi presented to the ED yesterday afternoon with 2 days of feeling dizzy, nausea and vomiting. Persistent nausea, and abdominal pain yesterday. She has not been able to eat. Troponins noted to be elevated, and she also had an oxygen requirement for some time. Her troponins continued to rise and [facility] was reconsulted. She has been accepted and is awaiting a bed. Sakshi was lying in bed when CM met with her today. She was very pleasant with CM. She has a complex medical history, and at one time she was told she wouldn't make it past 39y, and now at 64y she feels she has beaten the odds. Sakshi does not drive. She had to sell her car when her rent went up. She mainly goes only to MD appointments, and utilizes [facility]. She is steps from the food shelf and gets many of her groceries there. Sakshi denied any additional social needs at this time. Town of Residence: [facility] Resides with: Alone Significant Other/Family: Local (Has a good friend, Jyotsna, that she relies on a lot. Her sister, Archana, is out of state, but they are close.) Instrumental Activities of Daily Living (ADLs): Independent and Requires support with Transportation (does not drive. Uses [facility] for appointment and groceries) Medications Medication Management: No Issues/Barriers identified Physical Functioning/Mobility Assistive Device: cane/walker - does not use at home, but takes with her when she goes out. Advance Directives Advance Directives: Do you have an Advance Directive: Y 07/20/22, 14:47 AD On File at [facility]: Y 07/20/22, 14:47 Date Asked 04/09/25 04/09/25, 17:55 AD Date Reviewed 04/09/25 04/09/25, 20:10 COLST On File at [facility] Yes 07/20/22, 14:47 COLST Date Scanned 01/18/16 08/13/24, 07:19 Code Status Resuscitation Status Full Code Insurance Coverage/Financial Issues Insurance: BC/BS [place] [facility] [employer] ASST 100 Care Team Visit Care Team Role Provider Type Cristela Zavala APRN MD [facility] STAFF PHYSICIAN Trev Burr MD Primary Care Provider NON-[facility] STAFF PHYSICIAN Iban Sams DO Emergency Provider [facility] STAFF PHYSICIAN Albert Zuleta Admit Provider [facility] STAFF PHYSICIAN Attending Provider Other: Also is seen by the pain clinic and orthopedics Discharge Potential Discharge Needs: Other (available bed) Anticipated Barriers to Discharge: Bed availability Patient/Family Education Needs: Review discharge instructions, discuss Ask Me Three Transportation: EMS Plan: Sakshi will transport to [facility] via EMS once a bed is available. CM will continue to follow until transfer. Social Determinants of Health Screening Social Determinants of health last assessed in clinic: 04/10/25 Will the Patient Participate in the Screening?: Yes Do you worry about having a steady place to live?: yes What is your living situation today?: I have housing today, but am worried about losing it Problems where you live: no known problems In the past 12 months, have you had to go without electric, gas, oil or water in your home?: no 1. Within the past 12 months, we worried whether our food would run out before we got money to buy more.: Sometimes true 2. Within the past 12 months, the food we bought just didn't last and we didn't have money to get more.: Sometimes true Has lack of transportation kept you from medical appointments or from doing things needed for daily living?: yes Has anyone in your life made you feel unsafe or unsupported?: no How hard is it for you to pay for the very basics like food, housing, medical care, and heating? Would you say it is:: Somewhat hard Do you want help finding or keeping work or a job?: I do not need or want help If for any reason you need help with day-to-day activities such as bathing, preparing meals, shopping, managing finances, etc., do you get the help you need?: I don?t need any help How often do you feel lonely or isolated from those around you?: Sometimes Do you speak a language other than Arabic at home?: No Does the patient want assistance with any of the above?: No Health Related Social Needs Health related social needs: housing instability, housed, with risk of homelessness (Z59.811), food insecurity (Z59.41), transportation insecurity (Z59.82), problems related to housing/economic circumstances (Z59.89) and feeling lonely/isolated (Z60.8) Health related social needs details: none PFSH All Active Problems (Updated 04/09/25 @ 17:48 by Cristela Zavala APRN) Acute exacerbation of CHF (congestive heart failure) (Acute) Hypoxic respiratory failure (Acute) COPD (chronic obstructive pulmonary disease) (Chronic) Elevated brain natriuretic peptide (BNP) level (Acute) Demand ischemia of myocardium (Acute) Troponin level elevated (Acute) Pulmonary edema (Acute) Non-ST elevation [place] (NSTEMI) (Acute) Nausea & vomiting (Acute) Tinnitus of both ears (Acute) Benign paroxysmal positional vertigo of left ear (Acute) Pain disorder associated with psychological and physical factors (Acute) Sensorineural hearing loss (SNHL) of both ears (Acute) Chronic pain syndrome (Chronic) Lumbar spondylosis (Acute) Diabetic peripheral neuropathy (Acute) Surgical wound dehiscence (Acute) Painful breasts (Acute) Breast lump (Acute) Lumbar radiculitis (Acute) Left lumbar radiculopathy (Acute) SVT (supraventricular tachycardia) (Chronic) DVT prophylaxis (Acute) Sepsis (Acute) Acute dehydration (Acute) Pyelonephritis (Acute) Nausea & vomiting (Acute) Elevated troponin level not due to acute coronary syndrome (Acute) Atrial flutter, paroxysmal (Acute) Pyelonephritis, acute (Acute) Lipoma (Acute) Lateral epicondylitis of right elbow (Acute) Peripheral neuropathy (Acute) Vaginal dryness, menopausal (Acute) UTI (urinary tract infection) (Acute) Diarrhea (Acute) Gross hematuria (Acute) Tendinitis of left elbow (Acute) Breast pain, left (Acute) 09/2019. Physical exam unremarkable. No additional testing ordered. Right rotator cuff tendinitis (Acute) Steroid injection: 02/07/2021; 04/14/2019 Diabetes (Chronic) Hydronephrosis (Acute) Morbid obesity (Chronic) Leukocytosis (leucocytosis) (Acute) Renal insufficiency (Chronic) Lactic acid acidosis (Acute) Hyperglycemia (Chronic) Incarcerated incisional hernia (Acute) Primary osteoarthritis of both knees (Chronic 07/26/15) Synvisc injections for many years Most recent Synvisc injections: 09/22/24; 06/22/2023; 12/11/2022; 06/05/2022; 12/02/2021; 12/11/22; 06/22/23 Cystocele (Acute 04/13/15) Flank pain (Acute) Recurrent UTI (Chronic) Hematuria (Acute) Medical History Midline cystocele Severe obesity Obstructive sleep apnea syndrome Polyneuropathy Intestinal malabsorption Non-toxic uninodular goiter Disorder of vitamin B12 Iron deficiency anemia Pain, lower extremity Idiopathic osteoarthritis Tubulointerstitial nephritis Heart failure Cardiac arrest Spasm Atherosclerosis of coronary artery without angina pectoris Uses self-applied continuous glucose monitoring device Osteoarthritis of hips, bilateral Calcium nephrolithiasis Bile acid malabsorption syndrome History of palpitations CAD (coronary artery disease) Vertigo Chronic lower back pain Urinary incontinence Osteoma Hypertension Neuropathy Chronic pain Degenerative joint disease Chronic leg pain Hypomagnesemia Hyperparathyroidism Plantar fasciitis Thyroid nodule Obstructive nephropathy Incisional hernia Herpes simplex Diarrhea Vaginitis Acute stress disorder PTSD (post-traumatic stress disorder) Per pt. states triggers for her are loud noises, and slammed doors Cirrhosis of liver Other chromoabnormalities of urine Former smoker quit smoking 07/23/16 Depression Cardiomyopathy Urinary incontinence, mixed Obsessive compulsive disorder Vaginal wall prolapse Congestive heart failure Anemia Sleep apnea Sarcoidosis Anxiety Congenital ureterovesical obstruction Diabetes mellitus Kidney stone Essential hypertension Surgical History History of tonsillectomy and adenoidectomy Seroma of musculoskeletal structure after musculoskeletal system procedure Status post I&D of right hip wound and seroma on 09/09/2024 Additional aspiration of ~50 cc on 09/22/24 History of total right hip replacement (08/13/24) History of tooth extraction History of resection of small bowel r/t obstruction H/O parathyroidectomy History of hernia repair S/P total left hip arthroplasty (04/18/23) Tonsillectomy and adenoidectomy Open Carpal Tunnel release Oophrectomy, Both Lithotripsy Abdominal hysterectomy Fracture, Open Treatment Cholecystectomy Family History Mother Diabetes Heart disease Father Personal history of malignant neoplasm Lung Cancer Sister Personal history of malignant neoplasm Thyroid Cancer Maternal Grandmother Diabetes Social History Smoking/Tobacco Use Status: Former Tobacco Use Quit Date: 07/23/16 Smoking risk assessment performed?: Yes Alcohol Intake: former Drug use: Rarely Substance use type: marijuana Details: Cannabis gummies. Housing: apartment Current gender identity: female Do you feel safe at home: Yes Additional Social history: lives alone
[2025-04-10] MEDS: Gabapentin 600 MG TAB 1200 MG PO ×3 (08:41→21:36)
[2025-04-10] MEDS: Magnesium Oxide 400 MG TAB PO ×2 (08:41→21:36)
[2025-04-10] MEDS: Ferrous Sulfate 325 MG TAB PO (08:41)
[2025-04-10] MEDS: Spironolactone 25 MG TAB PO (08:41)
[2025-04-10] MEDS: Potassium Chloride 20 MEQ TABCR PO (08:41)
[2025-04-10] MEDS: Cyanocobalamin 500 MCG TAB 1000 MCG PO (08:41)
[2025-04-10] MEDS: Mupirocin 2% 15 GM TUBE TP ×2 (08:42→21:37)
[2025-04-10] MEDS: Pantoprazole 40 MG VIAL IVP (08:43)
[2025-04-10] MEDS: Furosemide 40 MG/4 ML VIAL IVP ×2 (08:44→15:48)
[2025-04-10] MEDS: Insulin Glargine 300 UNITS/3 ML PEN 22 UNITS SC (08:44)
[2025-04-10] MEDS: Insulin Aspart 300 UNITS/3 ML PEN SC ×5 (08:45→17:22)
[2025-04-10] MEDS: Clopidogrel 300 MG TAB PO (10:38)
--- NOTE | 2025-04-10 11:24 | W.PM.PROGNOT ---
Date of Service Date of service: 04/10/25 Time of Service: 11:24 Assessment and Plan Assessment and plan (1) Non-ST elevation [place] (NSTEMI): Status: Acute Assessment and plan: Symptoms have resolved with diuresis but troponins continue to trend up. Given this, I don't think this is c/w type 2 ischemia Repeat EKG without STEMI. Ectopy of ventricles, abnormal AV conduction on tele Case reviewed with [facility] cardiology, agreed with starting heparin and clopidogrel along with her aspirin She is on maximally tolerated statin. Should consider ezetimibe and/or PSK9 given her risks. Repeat lipids with next labs. They have accepted patient for definitive work up pending bed, Dr. Telles, cardiology service echo pending this morning (2) Acute exacerbation of CHF (congestive heart failure): Status: Acute Assessment and plan: Presented with CHF on admission, worse with fluids in ED Clinically responded to diuresis Last LEVF 40-45% on 08/07/24- HFmrEF, repeat Echo pending (3) Hypoxic respiratory failure: Status: Acute Assessment and plan: Secondary to CHF, has resolved. (4) Diabetes: Status: Chronic Assessment and plan: Gluc AC and HS with home basal/bolus and SSI coverage hold metformin with cath pending, hold GLP-1/GIP with her procedure coming up with sedation (5) COPD (chronic obstructive pulmonary disease): Status: Chronic Assessment and plan: Ongoing home meds No exacerbation currently (6) Anxiety: Assessment and plan: Improved, will monintor and consider low dose ativan PRN (7) DVT prophylaxis: Status: Acute Assessment and plan: now on heparin drip Subjective Subjective Patient reports: feels better and tolerating a regular diet; denies nausea, vomiting or fever Interval history since last seen: She feels better this morning. Her chest pressure has resolved, breathing feels back to normal. She did urinate a good amount with furosemide. She denies pain current. Not dizzy, hasn't felt palpitations, maybe an occasional skipped beat. Exam Narrative Exam Narrative: Alert and oriented X4, NAD sitting up in bed, off oxygen CV: RRR, 2/6 systolic murmur RUSB, no gallop/rub, JVP not elevated Lungs: CTAB, nl effort at rest ABD: Soft, NT/ND Ext: no cyanosis, clubbing, or edema, legs not tender. Objective Last Vital Signs Temp 36.6 C 04/10/25 07:56 Pulse 79 04/10/25 07:40 Resp 22 04/10/25 07:50 BP 126/73 04/10/25 06:00 Pulse Ox 95 04/10/25 07:57 Laboratory Results - last 24 hr 04/09/25 04/09/25 04/09/25 13:30 14:27 16:45 WBC 10.35 RBC 4.61 Hgb 14.8 Hct 43.2 MCV 94 MCH 32.1 MCHC 34.3 RDW 12.6 Plt Count 198 MPV 10.4 Immature Gran % 0.3 Neutrophils % 73.6 Lymphocytes % 19.0 Monocytes % 5.9 Eosinophils % 0.9 Basophils % 0.3 Nucleated RBC % 0.0 Absolute Neutrophils 7.62 H Absolute Lymphocytes 1.97 Absolute Monocytes 0.61 Absolute Eosinophils 0.09 Absolute Basophils 0.03 D-Dimer VBG Lactate 2.1 Sodium 141 Potassium 3.8 Chloride 104 Carbon Dioxide 24.3 Anion Gap 12.7 H BUN 16 Creatinine 1.0 Est GFR (CKD-EPI 2020) 62.52 Glucose 218 H Calcium 9.9 Magnesium Total Bilirubin 2.4 H Conjugated Bilirubin AST 33 ALT 24 Alkaline Phosphatase 110 Troponin I 123 H* 145 H* 307 H* NT-Pro-B Natriuret Pep 3602 H Total Protein 8.4 H Albumin 4.3 Lipase 42 TSH Urine Color Urine Clarity Urine pH Ur Specific [place] Urine Protein Urine Ketones Urine Blood Urine Nitrite Urine Bilirubin Urine Urobilinogen Ur Leukocyte Esterase Urine RBC Urine WBC Ur Epithelial Cells Urine Crystals Urine Bacteria Urine Casts Urine Mucus Urine Other Ur Culture Indicated? Urine Glucose Urine Opiates Screen Urine Methadone Screen Ur Barbiturates Screen Ur Tricyclics Screen Ur Amphetamines Screen U Benzodiazepines Scrn Urine Cocaine Screen Ur THC Screen 04/09/25 04/09/25 04/09/25 19:10 20:40 22:00 WBC RBC Hgb Hct MCV MCH MCHC RDW Plt Count MPV Immature Gran % Neutrophils % Lymphocytes % Monocytes % Eosinophils % Basophils % Nucleated RBC % Absolute Neutrophils Absolute Lymphocytes Absolute Monocytes Absolute Eosinophils Absolute Basophils D-Dimer 1188 H VBG Lactate Sodium Potassium Chloride Carbon Dioxide Anion Gap BUN Creatinine Est GFR (CKD-EPI 2020) Glucose Calcium Magnesium 1.6 L Total Bilirubin Conjugated Bilirubin 0.6 H AST ALT Alkaline Phosphatase Troponin I 589 H* NT-Pro-B Natriuret Pep Total Protein Albumin Lipase TSH 1.93 Urine Color Yellow Urine Clarity Clear Urine pH 5.5 Ur Specific [place] 1.020 Urine Protein >=300 H Urine Ketones Negative Urine Blood Small H Urine Nitrite Negative Urine Bilirubin Negative Urine Urobilinogen 0.2 Ur Leukocyte Esterase Negative Urine RBC 0-2 Urine WBC 3-5 Ur Epithelial Cells Rare Urine Crystals Negative Urine Bacteria Few Urine Casts Negative Urine Mucus Moderate Urine Other Rare Renal Ur Culture Indicated? No Urine Glucose Negative Urine Opiates Screen Positive A Urine Methadone Screen Negative Ur Barbiturates Screen Negative Ur Tricyclics Screen Negative Ur Amphetamines Screen Negative U Benzodiazepines Scrn Negative Urine Cocaine Screen Negative Ur THC Screen Positive A 04/09/25 04/10/25 04/10/25 23:00 02:50 05:54 WBC 15.19 H RBC 4.38 Hgb 14.3 Hct 41.3 MCV 94 MCH 32.6 MCHC 34.6 RDW 13.0 Plt Count 198 MPV 10.5 Immature Gran % Neutrophils % Lymphocytes % Monocytes % Eosinophils % Basophils % Nucleated RBC % Absolute Neutrophils Absolute Lymphocytes Absolute Monocytes Absolute Eosinophils Absolute Basophils D-Dimer VBG Lactate Sodium 140 141 Potassium 3.5 3.3 L Chloride 103 103 Carbon Dioxide 25.0 24.4 Anion Gap 12.0 H 13.6 H BUN 17 18 Creatinine 0.9 0.9 Est GFR (CKD-EPI 2020) 70.95 70.95 Glucose 154 H 155 H Calcium 9.5 9.4 Magnesium 2.4 Total Bilirubin 2.9 H Conjugated Bilirubin AST 33 ALT 21 Alkaline Phosphatase 93 Troponin I 1682 H* 2901 H* 3012 H* NT-Pro-B Natriuret Pep Total Protein 7.3 Albumin 3.6 Lipase TSH Urine Color Urine Clarity Urine pH Ur Specific [place] Urine Protein Urine Ketones Urine Blood Urine Nitrite Urine Bilirubin Urine Urobilinogen Ur Leukocyte Esterase Urine RBC Urine WBC Ur Epithelial Cells Urine Crystals Urine Bacteria Urine Casts Urine Mucus Urine Other Ur Culture Indicated? Urine Glucose Urine Opiates Screen Urine Methadone Screen Ur Barbiturates Screen Ur Tricyclics Screen Ur Amphetamines Screen U Benzodiazepines Scrn Urine Cocaine Screen Ur THC Screen Time Spent with Patient Time Spent with Patient: 35-49 minutes Time was spent: preparing to see the patient(eg.review tests), obtaining and/or reviewing separately otained hiistory, ordering medications,tests, procedures, referring, communicating with other health career technical education teacher, indepentently interpreting results, counseling the patient and care coordination
--- NOTE | 2025-04-10 11:30 | RT.EKG_ITS ---
APPROVED REPORT Exam: Resting ECG Reason for Exam: evolving heart block? Patient Location: I HR:45 bpm ECG Measurements Heart Rate [address] 268 P 31 QRSd 158 QRS -53 QT 584 T -33 QTc 506 Conclusion Probable 2-1 AV block LBBB
[2025-04-10 11:40] LABS: PTT Activated 27.2 sec (20.6-30.2)
[2025-04-10 11:53] LABS: EPI 027-NAP1-B1 PRESUMPTIVE NEGATIVE
[2025-04-10] MEDS: Heparin in 0.45% NaCl 25,000 UNIT/250 ML BAG 10 UNIT IVINF (12:31)
[2025-04-10 12:53] LABS: Calculated LDL 60 mg/dL (<100); Cholesterol 140 mg/dL (<200); HDL Cholesterol 45 mg/dL (>or=50); Triglyceride 176 mg/dL (<150)
[2025-04-10 12:54] LABS: Troponin I 2353 ng/L (<or=51)
[2025-04-10] MEDS: Fidaxomicin 200 MG TAB PO ×2 (14:27→21:36)
--- NOTE | 2025-04-10 15:47 | CHAPLAIN ---
I had a brief visit with Sakshi. She was in bed and said she was wanting to rest. She's in touch with a friend. She is waiting for a bed to open up at [facility].
[2025-04-10 19:04] LABS: Potassium 3.4 mmol/L (3.5-5.1)
[2025-04-10 19:11] LABS: PTT Activated 40.5 sec (20.6-30.2)
[2025-04-10] MEDS: Potassium Chloride 20 MEQ TABCR 40 MEQ PO (21:36)
[2025-04-10] MEDS: Pravastatin 20 MG TAB 10 MG PO (21:37)
[2025-04-10 23:24] LABS: Campylobacter PCR Negative (Negative); Shiga Toxin PCR Negative (Negative); Shigella/Enteroinvasive Ecoli Negative (Negative)
[2025-04-11] VITALS (33 sets, daily range): BP systolic 108–170; BP diastolic 46–101; PULSE 68–87; RESP 16–23; TEMP 37.8; O2SAT 87–97
--- NOTE | 2025-04-11 00:45 | RT.EKG_ITS ---
APPROVED REPORT Exam: Resting ECG Reason for Exam: 5 lead changes Patient Location: I HR:77 bpm ECG Measurements Heart Rate 77 AXIS GA 275 P 68 QRSd 158 QRS -46 QT 409 T 134 QTc 463 Conclusion Sinus rhythm...normal P axis, V-rate 50- 99 Prolonged GA interval...GA >220, V-rate 50- 90 Probable left atrial enlargement...P >50mS, <-0.10mV V1 Left bundle branch block...QRSd>120, broad/notched R
[2025-04-11 02:14] LABS: PTT Activated 51.0 sec (20.6-30.2)
[2025-04-11] MEDS: Heparin in 0.45% NaCl 25,000 UNIT/250 ML BAG 15 UNIT IVINF (02:46)
[2025-04-11 07:10] LABS: Anion Gap 7.0 mmol/L (3-11); BUN 18 mg/dL (7-18); CO2 29.0 mmol/L (21.0-32.0); Calcium 9.3 mg/dL (8.5-10.1); Chloride 103 mmol/L (98-107); Estimated GFR 55.76 (mL/min/1.73m2); Glucose 173 mg/dL (74-106); Potassium 3.6 mmol/L (3.5-5.1); Sodium 139 mmol/L (136-145)
[2025-04-11 07:24] LABS: Troponin I 986 ng/L (<or=51)
[2025-04-11] MEDS: Pantoprazole 40 MG TABCR PO (07:44)
[2025-04-11] MEDS: Gabapentin 600 MG TAB 1200 MG PO ×2 (07:45→14:16)
[2025-04-11] MEDS: Cyanocobalamin 500 MCG TAB 1000 MCG PO (07:45)
[2025-04-11] MEDS: Clopidogrel 75 MG TAB PO (07:45)
[2025-04-11] MEDS: Fidaxomicin 200 MG TAB PO (07:45)
[2025-04-11] MEDS: DULoxetine 30 MG CAP PO (07:45)
[2025-04-11] MEDS: Spironolactone 25 MG TAB PO (07:45)
[2025-04-11] MEDS: Potassium Chloride 20 MEQ TABCR PO (07:45)
[2025-04-11] MEDS: Magnesium Oxide 400 MG TAB PO (07:45)
[2025-04-11] MEDS: Furosemide 40 MG/4 ML VIAL IVP ×2 (07:46→16:30)
[2025-04-11] MEDS: Ferrous Sulfate 325 MG TAB PO (07:46)
[2025-04-11] MEDS: Normal Saline Flush 10 ML SYR IVP ×2 (07:46→16:30)
[2025-04-11] MEDS: Insulin Aspart 300 UNITS/3 ML PEN SC ×4 (07:57→11:45)
[2025-04-11] MEDS: Insulin Glargine 300 UNITS/3 ML PEN 22 UNITS SC (07:59)
[2025-04-11 09:13] LABS: PTT Activated 68.2 sec (20.6-30.2)
[2025-04-11] MEDS: Mupirocin 2% 15 GM TUBE TP (11:47)
[2025-04-11 15:40] LABS: PTT Activated 53.7 sec (20.6-30.2)
--- NOTE | 2025-04-11 16:02 | DSE_ITS ---
Date of service: 04/11/25 Time of Service: 16:02 DS: Diagnosis Discharge Diagnosis (1) Non-ST elevation ME (NSTEMI): Status: Acute (2) Acute exacerbation of CHF (congestive heart failure): Status: Acute (3) Hypoxic respiratory failure: Status: Acute (4) Diabetes: Status: Chronic (5) COPD (chronic obstructive pulmonary disease): Status: Chronic (6) Anxiety: (7) DVT prophylaxis: Status: Acute Discharge Plan Disposition Patient Disposition: Transfer-Acute Inpatient Care Specific Acute Inpt Facility: [facility] Condition: Fair Discharge Details Reason For Visit: hypoxic resp fail., NSTEMI II, troponin elevation Admit Date/Time: 04/09/25 17:07 Admit Provider: Albert Zuleta Attending Provider: Albert Zuleta Primary Care Provider: Trev Burr Hospital Course Hospital Course: Patient initially presented with acute hypoxic respiratory failure thought to have been secondary to an acute exacerbation of CHF for which she was diuresed and weaned off of supplemental oxygen (requiring a max of 3 L nasal cannula). However, patient's troponin continued to rise, increasing likelihood of type I and not to type II NSTEMI. Troponin peaked at 3000. Case was discussed with [facility] cardiology who agreed that significant elevation in troponin likely secondary to type I NSTEMI and excepted patient for transfer. She was on heparin drip, clopidogrel and aspirin and was stable during the remainder of her hospitalization and was ultimately determined to be stable for transfer to [facility] cardiology for left heart catheterization. Additionally, patient was noted as having loose stools and was found to have been C. difficile positive for which she was started on Dificid. Home Meds and New Rx's Prescriptions: No Action estradiol [Estrace] 0.01 % (0.1 mg/gram) cream 1 appful vaginal DAILY Qty: 42.5 4RF Rx Instructions: daily for 2 weeks then twice weekly Mounjaro 2.5 mg/0.5 mL pen injector 5 mg subcut QWEEK Rx Instructions: for 4 weeks sodium bicarbonate 650 mg tablet 1,300 mg PO BID pravastatin 10 mg tablet 10 mg PO DAILY gabapentin 600 mg tablet 1,200 mg PO TID acyclovir 5 % cream 1 applic TP ONCE PRN Patient Comments: over weekend ferrous sulfate [Iron (ferrous sulfate)] 325 mg (65 mg iron) tablet 325 mg PO DAILY nitroglycerin 0.4 MG tablet, sublingual 0.4 mg Sublingual PRN Patient Comments: 05/04/14: Pt carries NTG but has never had to use it. PG spironolactone 25 mg tablet 25 mg PO DAILY acetaminophen 500 mg tablet 1,000 mg PO Q8H PRN Qty: 90 0RF Rx Instructions: Take two tablets up to every 8 hours as needed for pain mupirocin calcium 2 % cream 1 applic topical BID Qty: 30 0RF aspirin 325 mg tablet 162.5 mg PO .QOD insulin glargine [Basaglar KwikPen U-100 Insulin] 100 unit/mL (3 mL) insulin pen 22 unit subcut QAM insulin lispro [Humalog KwikPen Insulin] 100 unit/mL insulin pen 30 unit SUBCUT TID Rx Instructions: 10 units with meals and 5 units with smaller meals amoxicillin 500 mg tablet 2,000 mg PO .COMPLEX Rx Instructions: 2,000 mg orally 1 hour prior to dental procedure; cyanocobalamin (vitamin B-12) 1,000 mcg capsule 1,000 mcg PO DAILY hydrocodone-acetaminophen 7.5-325 mg tablet 1 tab PO BID PRN loratadine 10 mg tablet 10 mg PO DAILY PRN magnesium oxide 400 mg magnesium tablet 400 mg PO BID thiamine HCl (vitamin B1) 50 mg tablet 50 mg PO DAILY zinc 10 mg tablet 10 mg PO DAILY furosemide 20 mg tablet 40 mg PO DAILY celecoxib 200 mg capsule See Rx Instructions .ROUTE .COMPLEX Qty: 60 3RF Dose Instruction: TAKE ONE CAPSULE BY MOUTH TWICE A DAY NEEDED FOR PAIN AND INFLAMMATION Rx Instructions: TAKE ONE CAPSULE BY MOUTH TWICE A DAY NEEDED FOR PAIN AND INFLAMMATION ondansetron HCl 4 mg tablet 4 mg PO Q6H PRN Patient Comments: TAKE ONE TABLET BY MOUTH EVERY 6 TO 8 HOURS NEEDED NVA Rx Instructions: Q6-8 hours PRN pantoprazole 40 mg tablet,delayed release (DR/EC) 40 mg PO DAILY Qty: 14 0RF carvedilol 12.5 mg tablet 25 mg PO BID Patient Comments: TAKE TWO TABLETS BY MOUTH TWICE A DAY metformin 500 mg tablet extended release 24 hr 1,000 mg PO BID Patient Comments: TAKE TWO TABLETS BY MOUTH TWICE A DAY duloxetine 30 mg capsule,delayed release(DR/EC) 30 mg PO DAILY Patient Comments: TAKE ONE CAPSULE BY MOUTH EVERY DAY potassium chloride 20 mEq tablet extended release 20 meq PO DAILY Patient Comments: TAKE ONE TABLET BY MOUTH EVERY DAY Discharge Instructions Activity:: Activity as Tolerated Equipment/Supplies:: No Equipment Needed Diet:: As Tolerated Discharge Orders Discharge Orders: Discharge Order (Routine); Ordered 04/11/25 Ordered By: Yohannes Lima DS: Summary Time Spent with Patient providing and/or coordinating discharge services: Greater than 30 minutes Status at Discharge Functional status at discharge: independent ambulation Overall status at discharge: patient is back to baseline Mental Status: mental status grossly normal Speech and Movement: speech and movement normal Mood: congruent mood Affect: normal affect Quality:SDOH Health Related Social Needs: Health related social needs risk of homeless food inse curity transpo insecurity house/econ circumstance lonely/isolated Health related social needs details none Health related social needs details: none Exam Narrative Exam Narrative: Well-appearing female laying in bed in no acute distress, ANO x 4, heart regular rhythm, 2 out of 6 systolic murmur present, lungs good auscultation bilaterally, abdomen soft, nontender, nondistended Psych Mental Status: mental status grossly normal Speech and Movement: speech and movement normal Mood: congruent mood Affect: normal affect DS: Data Vitals/I&O Vitals and I&O: Vital Signs Temperature 100.0 F H 04/11/25 00:00 Temperature Source Tympanic 04/11/25 00:00 Pulse 76 04/11/25 15:31 Pulse 76 04/11/25 15:31 Respiratory Rate 18 04/11/25 15:31 Respiratory Effort Normal 04/09/25 18:58 Respiratory Depth Normal 04/09/25 18:58 Respiratory Pattern Tachypnea 04/09/25 18:58 Blood Pressure 122/62 04/11/25 15:31 Blood Pressure Mean 79 04/11/25 15:31 Blood Pressure Position Supine 04/09/25 18:58 Pulse Oximetry 97 04/11/25 15:31 Oxygen Delivery Method Room Air 04/11/25 10:22 Oxygen Flow Rate 0 04/11/25 10:22 Pain Level 0 04/09/25 18:58 Comment prior to my shift 04/11/25 06:01 Intake & Output 04/10/25 04/11/25 04/11/25 17:59 05:59 17:59 Intake Total 837 / 837 159.333 / 996.333 206 / 206 Output Total 700 / 700 1250 / 1950 1650 / 1650 Balance 137 / 137 -1090.667 / -953.667 -1444 / -1444 Weight 275 lb 12.772 oz Intake: IV 159.333 / 159.333 86 / 86 Oral 837 / 837 120 / 120 Output: Urine 450 / 450 1250 / 1700 1650 / 1650 Stool 250 / 250 Other: Urine Color Yellow Yellow Pale Urine Appearance Clear Cloudy Clear Stool Size Moderate Stool Characteristics Liquid Brown Data Completed and Pending Labs on day of discharge: Labs from last 24 hours 04/11/25 04/11/25 04/11/25 14:57 08:40 05:53 APTT 53.7 H 68.2 H Sodium 139 Potassium 3.6 Chloride 103 Carbon Dioxide 29.0 Anion Gap 7.0 BUN 18 Creatinine 1.1 H Est GFR (CKD-EPI 2020) 55.76 Glucose 173 H Calcium 9.3 Ionized Calcium Troponin I 986 H* 04/11/25 04/10/25 04/09/25 01:55 18:40 20:40 APTT 51.0 H 40.5 H Sodium Potassium 3.4 L Chloride Carbon Dioxide Anion Gap BUN Creatinine Est GFR (CKD-EPI 2020) Glucose Calcium Ionized Calcium 1.15 Troponin I PFSH All Active Problems (Updated 04/09/25 @ 17:48 by Cristela Zavala APRN) Acute exacerbation of CHF (congestive heart failure) (Acute) Hypoxic respiratory failure (Acute) COPD (chronic obstructive pulmonary disease) (Chronic) Elevated brain natriuretic peptide (BNP) level (Acute) Demand ischemia of myocardium (Acute) Troponin level elevated (Acute) Pulmonary edema (Acute) Non-ST elevation ME (NSTEMI) (Acute) Nausea & vomiting (Acute) Tinnitus of both ears (Acute) Benign paroxysmal positional vertigo of left ear (Acute) Pain disorder associated with psychological and physical factors (Acute) Sensorineural hearing loss (SNHL) of both ears (Acute) Chronic pain syndrome (Chronic) Lumbar spondylosis (Acute) Diabetic peripheral neuropathy (Acute) Surgical wound dehiscence (Acute) Painful breasts (Acute) Breast lump (Acute) Lumbar radiculitis (Acute) Left lumbar radiculopathy (Acute) SVT (supraventricular tachycardia) (Chronic) DVT prophylaxis (Acute) Sepsis (Acute) Acute dehydration (Acute) Pyelonephritis (Acute) Nausea & vomiting (Acute) Elevated troponin level not due to acute coronary syndrome (Acute) Atrial flutter, paroxysmal (Acute) Pyelonephritis, acute (Acute) Lipoma (Acute) Lateral epicondylitis of right elbow (Acute) Peripheral neuropathy (Acute) Vaginal dryness, menopausal (Acute) UTI (urinary tract infection) (Acute) Diarrhea (Acute) Gross hematuria (Acute) Tendinitis of left elbow (Acute) Breast pain, left (Acute) 09/2019. Physical exam unremarkable. No additional testing ordered. Right rotator cuff tendinitis (Acute) Steroid injection: 02/07/2021; 04/14/2019 Diabetes (Chronic) Hydronephrosis (Acute) Morbid obesity (Chronic) Leukocytosis (leucocytosis) (Acute) Renal insufficiency (Chronic) Lactic acid acidosis (Acute) Hyperglycemia (Chronic) Incarcerated incisional hernia (Acute) Primary osteoarthritis of both knees (Chronic 07/26/15) Synvisc injections for many years Most recent Synvisc injections: 09/22/24; 06/22/2023; 12/11/2022; 06/05/2022; 12/02/2021; 12/11/22; 06/22/23 Cystocele (Acute 04/13/15) Flank pain (Acute) Recurrent UTI (Chronic) Hematuria (Acute) Medical History Midline cystocele Severe obesity Obstructive sleep apnea syndrome Polyneuropathy Intestinal malabsorption Non-toxic uninodular goiter Disorder of vitamin B12 Iron deficiency anemia Pain, lower extremity Idiopathic osteoarthritis Tubulointerstitial nephritis Heart failure Cardiac arrest Spasm Atherosclerosis of coronary artery without angina pectoris Uses self-applied continuous glucose monitoring device Osteoarthritis of hips, bilateral Calcium nephrolithiasis Bile acid malabsorption syndrome History of palpitations CAD (coronary artery disease) Vertigo Chronic lower back pain Urinary incontinence Osteoma Hypertension Neuropathy Chronic pain Degenerative joint disease Chronic leg pain Hypomagnesemia Hyperparathyroidism Plantar fasciitis Thyroid nodule Obstructive nephropathy Incisional hernia Herpes simplex Diarrhea Vaginitis Acute stress disorder PTSD (post-traumatic stress disorder) Per pt. states triggers for her are loud noises, and slammed doors Cirrhosis of liver Other chromoabnormalities of urine Former smoker quit smoking 07/23/16 Depression Cardiomyopathy Urinary incontinence, mixed Obsessive compulsive disorder Vaginal wall prolapse Congestive heart failure Anemia Sleep apnea Sarcoidosis Anxiety Congenital ureterovesical obstruction Diabetes mellitus Kidney stone Essential hypertension Surgical History History of tonsillectomy and adenoidectomy Seroma of musculoskeletal structure after musculoskeletal system procedure Status post I&D of right hip wound and seroma on 09/09/2024 Additional aspiration of ~50 cc on 09/22/24 History of total right hip replacement (08/13/24) History of tooth extraction History of resection of small bowel r/t obstruction H/O parathyroidectomy History of hernia repair S/P total left hip arthroplasty (04/18/23) Tonsillectomy and adenoidectomy Open Carpal Tunnel release Oophrectomy, Both Lithotripsy Abdominal hysterectomy Fracture, Open Treatment Cholecystectomy Family History Mother Diabetes Heart disease Father Personal history of malignant neoplasm Lung Cancer Sister Personal history of malignant neoplasm Thyroid Cancer Maternal Grandmother Diabetes Social History Smoking/Tobacco Use Status: Former Tobacco Use Quit Date: 07/23/16 Smoking risk assessment performed?: Yes Alcohol Intake: former Drug use: Rarely Substance use type: marijuana Details: Cannabis gummies. Housing: apartment Current gender identity: female Do you feel safe at home: Yes Additional Social history: lives alone Time Spent with Patient Time Spent with Patient: <45 minutes Time was spent: preparing to see the patient(eg.review tests), obtaining and/or reviewing separately otained hiistory, ordering medications,tests, procedures, referring, communicating with other health neonatal intensive care unit nurse, indepentently interpreting results, counseling the patient and care coordination
== END 2025-04-11 17:15 | disposition short-term general hospital (02) | DRG 280 ==
LOC: ER 17:55 → ICU 20:10
PROVIDERS: Hospitalist; Nurse Practitioner Acute Care; Admitting Provider Family Medicine; Emergency Provider Student in an Organized Health Care Education/Training Program; PCP Family Medicine; Responsible Provider Family Medicine; Visit Provider Family Medicine
DX: I13.0 Hypertensive heart and chronic kidney disease with heart failure and stage 1 through stage 4 chronic kidney disease, or unspecified chronic kidney disease (principal); I50.23 Acute on chronic systolic (congestive) heart failure; I21.4 Non-ST elevation (NSTEMI) myocardial infarction; J96.01 Acute respiratory failure with hypoxia; I47.10 Supraventricular tachycardia, unspecified; I48.92 Unspecified atrial flutter; K90.9 Intestinal malabsorption, unspecified; I42.9 Cardiomyopathy, unspecified; G47.33 Obstructive sleep apnea (adult) (pediatric); I25.10 Atherosclerotic heart disease of native coronary artery without angina pectoris; F43.10 Post-traumatic stress disorder, unspecified; Z79.4 Long term (current) use of insulin; K52.9 Noninfective gastroenteritis and colitis, unspecified; N20.0 Calculus of kidney; E89.2 Postprocedural hypoparathyroidism; Z90.49 Acquired absence of other specified parts of digestive tract; K74.60 Unspecified cirrhosis of liver; R16.1 Splenomegaly, not elsewhere classified; J44.9 Chronic obstructive pulmonary disease, unspecified; R11.2 Nausea with vomiting, unspecified; H81.12 Benign paroxysmal vertigo, left ear; E11.42 Type 2 diabetes mellitus with diabetic polyneuropathy; M47.26 Other spondylosis with radiculopathy, lumbar region; N64.4 Mastodynia; E66.01 Morbid (severe) obesity due to excess calories; N18.9 Chronic kidney disease, unspecified; E11.22 Type 2 diabetes mellitus with diabetic chronic kidney disease; E04.1 Nontoxic single thyroid nodule; E53.8 Deficiency of other specified B group vitamins; D50.9 Iron deficiency anemia, unspecified; Z86.74 Personal history of sudden cardiac arrest; G89.29 Other chronic pain; Z87.891 Personal history of nicotine dependence; F32.A Depression, unspecified; N39.46 Mixed incontinence; F41.9 Anxiety disorder, unspecified; Z96.643 Presence of artificial hip joint, bilateral
CPT/HCPCS: 00123; 36415; 36416; 80048; 80053; 80061; 80307; 82962; 83690; 85027; 87505; 93005; 93306; 94640; 96361; 96365; 96366; 96375; 96376; 99285; J1650; 71045; 74177; 81003; 81015; 82248; 82330; 83605; 83735; 83880; 84132; 84443; 84484; 85025; 85379; 85730; 93010; 94760; 99223; 99232; 99238; J1644; J1815; J1938; J2270; J2405; J2470; J3475; J7614

== ENCOUNTER → 2025-04-20 08:49 | Outpatient (BNVA) | payer MEDICARE, SELFPAY | PROVIDERS: PCP Family Medicine; Referring Provider Family Medicine; Visit Provider Student in an Organized Health Care Education/Training Program | DX: M17.0 Bilateral primary osteoarthritis of knee (principal) | CPT/HCPCS: 20610; J7325 ==